=== PATIENT | male | born 1965 | race Caucasian/White ===

== ENCOUNTER 2022-12-15 12:42 | Outpatient (OUT) | payer OTHER, MEDICARE, SELFPAY ==
--- NOTE | 2022-12-15 13:11 | MR_ITS ---
[address] [address] Patient Name: ELENA TREJO MRN: [id number] date: 1965 Sex: M Assigned Patient Location: MRI Current Patient Location: MRI Accession/Order Number: [id number] Exam Date: 12/15/2022 13:15 Report Date: 12/15/2022 15:40 At the request of: PEE LAKHANI Procedure: MR lumbar spine wo con EXAM: MRI of the lumbar spine without IV gadolinium contrast. REASON FOR EXAM: Lumbar Radicular Pain M54.16 COMPARISON: None FINDINGS: No lumbar spine fractures, acute malalignment or acute abnormal marrow signal. No spinal canal mass, hematoma or fluid collection. L4-5 posterior maryam and pedicle screw fusion with laminectomies. Minimal grade 1 retrolisthesis of L3 on L4. No other lumbar spine malalignment. Mild L3-L4 posterior disc bulge. Mild L3-L4 spinal canal stenosis. No other substantial spinal canal stenoses. Mild bilateral L3-L4, and L4-5 neural foraminal stenoses. Mild to moderate bilateral L5-S1 neural foraminal stenoses. Remainder unremarkable. IMPRESSION: 1. No acute lumbar spine abnormalities. 2. L4-5 posterior maryam and pedicle screw fusion with laminectomies. 3. No moderate or high-grade spinal canal stenoses. 4. Mild to moderate bilateral L5-S1 neural foraminal stenoses. Electronically authenticated by: SELENE HASTINGS Date: 12/15/2022 15:40
== END 2022-12-15 12:43 ==
PROVIDERS: PCP Family Medicine; Visit Provider Family Medicine
DX: M54.16 Radiculopathy, lumbar region (principal); M48.07 Spinal stenosis, lumbosacral region
CPT/HCPCS: 72148

== ENCOUNTER 2022-12-24 14:54 | Emergency (ER) | payer OTHER, MEDICARE, SELFPAY ==
[2022-12-24 15:02] VITALS: BP 139/98; PULSE 58; RESP 14; TEMP 37.1; O2SAT 100; BMI 32.6
--- NOTE | 2022-12-24 15:36 | ED.FALL1 ---
HPI - Fall General Chief Complaint: Fall Stated Complaint: fall lower and upper extremity injury Time Seen by Provider: 12/24/22 15:36 Source: patient Mode of arrival: Wheelchair History of Present Illness HPI Narrative: Presents to emergency department complaining of left foot pain. Patient states he sprained it 5 days ago was seen in the emergency department and he was placed in an Agustín wrap. Patient states he is having swelling and pain when he walks on it. He also states he fell 2 days ago did not hit his head but since then had neck pain and pain over his sternum. His worse on the sternum and on the right clavicle when he moves. He denies any shortness of breath. Denies this being a syncopal episode. Has not been elevating the leg. He denies any fever, chills, or cough. He denies any abdominal pain. He denies any nausea, vomiting, diarrhea, consultation. He denies any paresthesias, or weakness. 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 He did not follow-up with anyone regarding the foot sprain. Related Data Home Medications Medication Instructions Recorded Confirmed dutasteride 0.5 mg capsule 0.5 mg PO DAILY 12/24/22 12/24/22 levetiracetam 750 mg tablet 750 mg PO BID 12/24/22 12/24/22 (Brannon) levothyroxine 100 mcg tablet 175 mcg PO DAILY 12/24/22 12/24/22 linezolid 600 mg tablet 600 mg PO BID 12/24/22 12/24/22 methocarbamol 500 mg tablet 500 mg PO Q6H PRN muscle spasm 12/24/22 12/24/22 metoprolol tartrate 50 mg tablet 50 mg PO BID 12/24/22 12/24/22 spironolactone 50 mg tablet 50 mg PO DAILY 12/24/22 12/24/22 tamsulosin 0.4 mg capsule 0.4 mg PO DAILY 12/24/22 12/24/22 topiramate 100 mg tablet 100 mg PO DAILY 12/24/22 12/24/22 topiramate 200 mg tablet 200 mg PO .QHS 12/24/22 12/24/22 trazodone 100 mg tablet 100 mg PO .QHS 12/24/22 12/24/22 Allergies Allergy/AdvReac Type Severity Reaction Status Date / Time Penicillins Allergy Severe Verified 12/24/22 15:01 Review of Systems ROS Status of ROS 10 or more systems reviewed and unremarkable except as noted in history and below Exam Narrative Exam Narrative: Nurses notes and vital signs reviewed and patient is not hypoxic. General: Nontoxic, Well-appearing and in no apparent distress. Skin: Warm, dry, no pallor noted. No Rash Head: Normocephalic, atraumatic. Neck: Supple, Minimal right lateral C6 and C7 tenderness to palpation. There is no erythema. Full range of motion. Eye: Pupils are equal, round and EOMI. No scleral icterus. Ears, Nose, Mouth, and Throat: TM clear, no posterior oropharynx erythema or nasal mucosal hypertrophy, uvula is mid-line Oral mucosa is moist Cardiovascular: Regular Rate and Rhythm without murmur, gallop or rub. Respiratory: No accessory muscle use or respiratory distress. Lungs are clear to auscultation, no wheezing, rales or rhonchi Chest Wall: no tenderness Back: No midline thoracic or lumbar vertebral tenderness. No CVA tenderness Musculoskeletal: Lateral malleolus ecchymosis and edema. No tenderness at the base of the 5th. DP +2, PTT +2, capillary refill is brisk. Range of motion is negative for pain. no calf or popliteal tenderness, no lower extremity edema/swelling GI: Abdomen is soft, non-distended. Normal bowel sounds. No masses appreciated. No tenderness to palpation. No rebound, guarding, or rigidity noted. Neurological: A&O x4. No cranial nerve dysfunction observed. No truncal ataxia. Moves all extremities. Sensation intact. Psychiatric: Cooperative and interactive. Normal mood and affect. Constitutional Vital Signs - 24 hr 12/24/22 15:02 Temperature 98.7 F Pulse Rate [Monitor] 58 L Respiratory Rate 14 Blood Pressure [Right Arm] 139/98 H Pulse Oximetry 100 Oxygen Delivery Method Room Air Course Vital Signs Vital signs: Vital Signs Temperature 98.7 F 12/24/22 15:02 Pulse Rate 58 L 12/24/22 15:02 Respiratory Rate 14 12/24/22 15:02 Blood Pressure 139/98 H 12/24/22 15:02 Pulse Oximetry 100 12/24/22 15:02 Oxygen Delivery Method Room Air 12/24/22 15:02 Temperature 98.7 F 12/24/22 15:02 Pulse Rate 58 L 12/24/22 15:02 Respiratory Rate 14 12/24/22 15:02 Blood Pressure 139/98 H 12/24/22 15:02 Pulse Oximetry 100 12/24/22 15:02 Oxygen Delivery Method Room Air 12/24/22 15:02 MDM - Fall MDM Narrative Medical decision making narrative: Radiologic studies, CT scans of the C-spine and chest were done which did not show any fracture. Patient is stable for outpatient follow-up. He is to follow-up with Dr. Mendoza primary care doctor. Advise follow-up with the management. He is advised to RICE. At this time the patient is without objective evidence of an acute process requiring hospitalization or inpatient management. The patient has remained hemodynamically stable. No additional indication for emergent studies at this time. I answered all questions. Discussed discharge instructions including standard anticipatory guidance and what should prompt a return to the emergency department, including if they get worse are not getting better or develops any new or concerning symptoms. I've given them specific time frame in which to follow-up, and who to follow-up with. The patient demonstrates understanding. Patient is nontoxic and stable for discharge with outpatient follow-up. This note was created with the assistance of a speech recognition program. Although the intention is to generate documents that actually reflects the content of the visit, no guarantees can be provided that every mistake has been identified and corrected by editing. Discharge Plan Discharge Chief Complaint: Fall Clinical Impression: Neck strain Patient Disposition: Home, Self-Care Time of Disposition Decision: 17:50 Condition: Good Mode of Transportation: Private Vehicle Prescriptions / Home Meds: No Action dutasteride 0.5 mg capsule 0.5 mg PO DAILY levetiracetam [Keppra] 750 mg tablet 750 mg PO BID levothyroxine 100 mcg tablet 175 mcg PO DAILY linezolid 600 mg tablet 600 mg PO BID methocarbamol 500 mg tablet 500 mg PO Q6H PRN (Reason: muscle spasm) metoprolol tartrate 50 mg tablet 50 mg PO BID spironolactone 50 mg tablet 50 mg PO DAILY tamsulosin 0.4 mg capsule 0.4 mg PO DAILY topiramate 100 mg tablet 100 mg PO DAILY topiramate 200 mg tablet 200 mg PO .QHS trazodone 100 mg tablet 100 mg PO .QHS Instructions: Cervical Strain (ED), Foot Sprain (ED) Stand Alone Forms: Portal Instructions Referrals: Patrice Guadalupe MD [Primary Care Provider] - 1 week Goldy Phillips MD [Physician] - 1 week
--- NOTE | 2022-12-24 15:47 | CT_ITS ---
[address] [address] Patient Name: ELENA TREJO MRN: [id number] date: 1965 Sex: M Assigned Patient Location: ER Current Patient Location: ER Accession/Order Number: [id number] Exam Date: 12/24/2022 16:00 Report Date: 12/24/2022 17:45 At the request of: LISSETTE LOPEZ Procedure: CT cervical spine wo con EXAMINATION: CT cervical spine wo con HISTORY: pain history of trauma COMPARISON: 11/27/2022 TECHNIQUE: CT Cervical spine without IV contrast. Coronal and sagittal reformations were performed. Dose reduction techniques were achieved by using automated exposure control and/or adjustment of mA and/or kV according to patient size and/or use of iterative reconstruction technique. FINDINGS: CV JUNCTION: Normal foramen magnum with no Chiari malformation. PARASPINAL: Normal with no visible mass. BONES: Again, there has been an anterior interbody fusion at C5-C6 with placement of a fusion cage as well as an anterior plate and screws. Hardware is intact. OTHER: None. DISC LEVELS: C1-C2: Within normal limits for age. C2-C3: No significant disc/facet abnormality, spinal stenosis, or foraminal stenosis. C3-C4: Early degenerative disc disease is present without focal protrusion or neural impingement. C4-C5: Early degenerative disc disease is present without focal protrusion or neural impingement. . C5-C6: Again, there are findings of previous anterior interbody fusion at this level. The central canal and neural foramina are satisfactorily maintained. C6-C7: Moderate degenerative disc disease is present. The central canal is satisfactorily maintained. There is mild foraminal stenosis bilaterally, more prominent on the left than on the right. C7-T1: Early degenerative disc disease is present without focal protrusion or neural impingement. IMPRESSION: Previous C5-C6 anterior interbody fusion, stable compared with prior study of one month ago. Multilevel cervical spondylosis. No evidence for acute fracture or traumatic malalignment. Electronically authenticated by: Jeanine GARCIA Date: 12/24/2022 17:45
--- NOTE | 2022-12-24 15:47 | CT_ITS ---
[address] [address] Patient Name: ELENA TREJO MRN: [id number] date: 1965 Sex: M Assigned Patient Location: ER Current Patient Location: ER Accession/Order Number: [id number] Exam Date: 12/24/2022 16:00 Report Date: 12/24/2022 17:01 At the request of: LISSETTE LOPEZ Procedure: CT chest wo con EXAM: CT chest wo con HISTORY: pain, fall COMPARISON: None. TECHNIQUE: Noncontrast CT was obtained through the chest. Dose reduction techniques were achieved by using automated exposure control and/or adjustment of mA and/or kV according to patient size and/or use of iterative reconstruction technique. FINDINGS: Arm down scanning technique with resultant artifact. Cardiovascular: Postsurgical changes of the nasal septum. Cardiomegaly. Small pericardial effusion is present. Atherosclerotic vascular calcification at the left anterior descending coronary artery. Mediastinum: No mediastinal or hilar lymphadenopathy. Pulmonary: No focal consolidation, pneumothorax, or pleural effusion. Osseous: No acute fracture. Postsurgical changes of the lower cervical spine. Osteophytes of the thoracic spine. No aggressive osseous lesion. Upper abdomen: The imaged portion of the upper abdomen is normal. IMPRESSION: 1. No acute traumatic abnormality within the chest. 2. Cardiomegaly. Electronically authenticated by: GARFIELD URBAN Date: 12/24/2022 17:01
[2022-12-24 18:16] VITALS: BP 129/77; PULSE 59; RESP 16; O2SAT 59
== END 2022-12-24 18:17 | disposition home or self-care (01) ==
PROVIDERS: Emergency Provider Emergency Medicine; PCP Family Medicine
DX: S16.1XXA Strain of muscle, fascia and tendon at neck level, initial encounter (principal); W19.XXXA Unspecified fall, initial encounter; Z79.899 Other long term (current) drug therapy
CPT/HCPCS: 71250; 72125; 99284

== ENCOUNTER 2022-12-25 11:03 | Outpatient (OUT) | payer OTHER, MEDICARE, SELFPAY ==
--- NOTE | 2022-12-25 12:07 | PM.CN ---
Consult Note: HPI Data of Consult Patient: new to practice Consult date: 12/25/22 Requesting Physician: Hernandez Wylie MD Primary Care Provider: Patrice Guadalupe MD Consult Narrative Reason for consult: neck, left arm pain, low back, left leg pain Narrative: this is a pleasant 57-year-old gentleman presents for evaluation. He notes increasing pain throughout his axial neck, as well as pain that rates from his low back into the left lower extremity. He has progressive weakening in his left lower extremity. He has a history of fusions at C5-C6, as well as L4-L5. He engages in provider directed home exercises, but these have not provided any lasting relief. His cervical imaging is significant for multiple levels of facet arthropathy and cervical spondylosis, and his lumbar MRI is consistent with multiple levels of foraminal stenosis, including L5-S1, as well as facet arthropathy at multiple levels.he utilizes primarily [id number] medications, which provided minimal relief. He has tried opioids in the past for various reasons, but he does not tolerate the side effects well. He otherwise denies adverse medication side effects or loss of bowel or bladder control. cc:: CC: Hernandez Wylie MD Review of Systems ROS Status of ROS 10 or more systems reviewed and unremarkable except as noted in history and below Meds Home Medications and Allergies Home Medications Medication Instructions Recorded Confirmed Type dutasteride 0.5 mg capsule 0.5 mg PO DAILY 12/24/22 12/24/22 History levetiracetam 750 mg tablet 750 mg PO BID 12/24/22 12/24/22 History (Keppra) levothyroxine 100 mcg tablet 175 mcg PO DAILY 12/24/22 12/24/22 History linezolid 600 mg tablet 600 mg PO BID 12/24/22 12/24/22 History methocarbamol 500 mg tablet 500 mg PO Q6H PRN muscle spasm 12/24/22 12/24/22 History metoprolol tartrate 50 mg tablet 50 mg PO BID 12/24/22 12/24/22 History spironolactone 50 mg tablet 50 mg PO DAILY 12/24/22 12/24/22 History tamsulosin 0.4 mg capsule 0.4 mg PO DAILY 12/24/22 12/24/22 History topiramate 100 mg tablet 100 mg PO DAILY 12/24/22 12/24/22 History topiramate 200 mg tablet 200 mg PO .QHS 12/24/22 12/24/22 History trazodone 100 mg tablet 100 mg PO .QHS 12/24/22 12/24/22 History Allergies Allergy/AdvReac Type Severity Reaction Status Date / Time Penicillins Allergy Severe Verified 12/24/22 15:01 Exam Constitutional Common normals: no apparent distress, oriented x3 and healthy appearing Neck & C-Spine Other: tenderness to palpation throughout the cervical spine. Pain is elicited with flexion, extension, and lateral rotation of the cervical spine. Facet loading maneuvers are positive bilaterally. Respiratory Common normals: normal respiratory effort Effort & inspection: able to speak in complete sentences Back & Pelvis Other: tenderness to palpation throughout the lumbar spine. Pain is elicited with flexion, extension, and lateral rotation of the lumbar spine. Facet loading maneuvers are positive bilaterally. Strength noted to be unremarkable throughout the bilateral lower extremities except for decreased strength rated at four out of five in the left quadriceps femoris, anterior tibialis, posterior tibialis. Sensation noted to be unremarkable throughout the bilateral lower extremities for dysesthesia in the left L3, L4, L5 dermatomal distributions. Coordination remains intact. Gait remains mildly antalgic. Extremity Common normals: normal to inspection Neuro Common normals: oriented x3, CN's II-XII intact bilaterally and no focal motor deficits Psych Common normals: mental status grossly normal and cooperative Assessment and Plan Assessment and Plan (1) Cervical spondylosis: (2) Cervical postlaminectomy syndrome: (3) Lumbar stenosis with neurogenic claudication: (4) Lumbar spondylosis: (5) Lumbar postlaminectomy syndrome: Plan this is a pleasant 57-year-old gentleman who presents for evaluation. He has failed physical and medical modalities, as listed above. His cervical and lumbar imaging was reviewed, as noted above. He states that his most prominent symptoms are his neck pain that often cause headaches, so given his symptomatology and imaging findings, it is prudent to attempt diagnostic bilateral C3, C4, C5 medial branch blocks ?2 with the intention of proceeding to radio frequency ablation. He is in agreement with this plan. We also discussed that he may be a candidate for various lumbar interventions, including epidural steroid injections and lumbar medial branch blocks, given his pathology and symptomatology. He expressed understanding. Medications were reviewed, and no changes were made at this time. He will follow-up after the procedure is completed.
== END 2022-12-25 11:04 ==
PROVIDERS: PCP Family Medicine; Visit Provider Anesthesiology
DX: M47.812 Spondylosis without myelopathy or radiculopathy, cervical region (principal); M96.1 Postlaminectomy syndrome, not elsewhere classified; M47.816 Spondylosis without myelopathy or radiculopathy, lumbar region; M48.062 Spinal stenosis, lumbar region with neurogenic claudication
CPT/HCPCS: G0463

== ENCOUNTER 2023-01-03 09:24 | Outpatient (OUT) | payer OTHER, MEDICARE, SELFPAY ==
--- NOTE | 2023-01-03 09:54 | XR_ITS ---
The [address] [address] Patient Name: ELENA TREJO MRN: [id number] date: 1965 Sex: M Assigned Patient Location: [facility] Current Patient Location: [facility] Accession/Order Number: [id number] Exam Date: 01/03/2023 09:54 Report Date: 01/03/2023 10:32 At the request of: SELENE LUZ Procedure: XR ankle LT min 3V PROCEDURE: XR ankle LT min 3V HISTORY: LEFT ANKLE PAIN ; lateral ankle pain; follow-up COMPARISON: XR ankle left 11/27/2022 FINDINGS: BONES:Today's study contains an oblique view of the ankle which shows a 7 mm separate ossification at the distal medial margin of the lateral malleolus. No visible fracture line or callus formation involving the fibula or tibia. Normal ankle joint spacing. SOFT TISSUES:No visible soft tissue swelling. EFFUSION:None visible. OTHER: Negative. IMPRESSION: 1. No appreciable acute bone abnormality. 2. A separate ossification adjacent the lateral malleolus could not be seen on prior study. Its cephalad margin overlaps the lateral malleolus and cannot be evaluated. I suspect this represents a separate ossification center or sequela of remote injury. Acute fracture cannot be excluded but is felt less likely. Electronically authenticated by: SHEN SOSA Date: 01/03/2023 10:32
== END 2023-01-03 09:25 ==
LOC: RAD 09:25
PROVIDERS: PCP Family Medicine; Visit Provider Student in an Organized Health Care Education/Training Program
DX: M25.572 Pain in left ankle and joints of left foot (principal)
CPT/HCPCS: 73610

== ENCOUNTER 2023-01-08 08:50 | Day surgery (SDC) | payer OTHER, MEDICARE, SELFPAY ==
[2023-01-08 09:50] VITALS: BP 103/76; PULSE 56; RESP 14; TEMP 36.2; O2SAT 98
[2023-01-08] MEDS: BUPIVACAINE HCL 0.25% PF 25 MG/10 ML VIAL INJ (10:39)
[2023-01-08] MEDS: DEXAMETHASONE SODIUM PHOSPHATE 10 MG/ML VIAL INJ (10:39)
[2023-01-08] MEDS: LIDOCAINE HCL 2% PF 100 MG/5 ML VIAL INJ (10:40)
--- NOTE | 2023-01-08 10:40 | W.PM.PROCNOT ---
Date of procedure: 01/08/23 Pre-op diagnosis: Cervical spondylosis Post-op diagnosis: same Procedure: Procedure: Bilateral C3, 4, 5 medial branch block Medications: Bupivacaine 0.25% 4cc The patient was seen and examined in the preoperative holding area.? The informed consent was obtained and placed on the chart.? The patient was brought to the medical procedure unit and placed in the prone position.? A timeout was completed verifying correct patient, procedure site, positioning, plan, and special equipment.? Using aseptic technique, the needle was placed at left C3.? Under direct fluoroscopic visualization, a Quincke tip needle was advanced to the midpoint of the waist of the articular pillar at the respective medial branch segment. The above-mentioned injectate was placed in a 1 mL aliquot proceeded by negative aspiration.? The needle was removed.? The procedure was completed at all left C4, 5. The same procedure, at the same levels, was then completed on the right side. Insertion site was covered.? Patient was taken to the postprocedural recovery area and monitored for an appropriate length of time before found suitable for discharge in the accompaniment of a responsible adult. Surgeon: Hernandez Wylie Condition: stable
[2023-01-08 11:10] VITALS: BP 115/73; BP 129/70; PULSE 55; PULSE 57; RESP 18; RESP 97; O2SAT 18; O2SAT 98
== END 2023-01-08 10:45 | disposition home or self-care (01) ==
LOC: SURGOUT 08:51
PROVIDERS: PCP Family Medicine; Visit Provider Anesthesiology
DX: M47.812 Spondylosis without myelopathy or radiculopathy, cervical region (principal)
CPT/HCPCS: 64490; 64491; J1100

== ENCOUNTER 2023-04-16 19:13 | Emergency (ER) | payer OTHER, MEDICARE, SELFPAY ==
[2023-04-16] VITALS (20 sets, daily range): BP systolic 112–181; BP diastolic 73–128; PULSE 56–65; RESP 5–32; TEMP 36.7; O2SAT 92–97; BMI 32.3
--- NOTE | 2023-04-16 19:34 | ED.GENADUL1 ---
HPI - General Adult General Chief complaint: Weakness Stated complaint: CP, LEFT ARM NUMBNESS, MIGRAINE Time Seen by Provider: 04/16/23 19:29 Source: patient Mode of arrival: Wheelchair Limitations: no limitations History of Present Illness HPI narrative: complains of migraine for the past week. Also recurrent numbness of the left arm. no associated weakness. Also has productive cough of brown phlegm. fever this past week. Ex smoker with past history of emphysema. States he is not able to sleep. complains of pressure of his chest when lying down. left arm is not numb now. Headache continues MD complaint: past history of migraines for which he takes Topomax and excedrin migraine. Onset (ago): week(s) Related Data Home Medications Medication Instructions Recorded Confirmed dutasteride 0.5 mg capsule 0.5 mg PO DAILY 12/24/22 01/08/23 levetiracetam 750 mg tablet 750 mg PO BID 12/24/22 01/08/23 (Keppra) levothyroxine 100 mcg tablet 100 mcg PO DAILY 12/24/22 01/08/23 methocarbamol 500 mg tablet 500 mg PO Q6H PRN muscle spasm 12/24/22 01/08/23 metoprolol tartrate 50 mg tablet 50 mg PO QDAY 12/24/22 01/08/23 tamsulosin 0.4 mg capsule 0.4 mg PO DAILY 12/24/22 01/08/23 topiramate 100 mg tablet 100 mg PO DAILY 12/24/22 01/08/23 topiramate 200 mg tablet 200 mg PO .QHS 12/24/22 01/08/23 trazodone 100 mg tablet 100 mg PO .QHS 12/24/22 01/08/23 albuterol 90 mcg/actuation aerosol mcg inhalation 12/25/22 inhaler aspirin 81 mg chewable tablet 81 mg PO BID 12/25/22 01/08/23 (Aspirin Childrens) fluticasone fur. 100 mcg-umeclid 1 inh inhalation DAILY 12/25/22 01/08/23 62.5 mcg-vilant 25 mcg inhalat.powder (Trelegy Ellipta) rimegepant 75 mg disintegrating mg 12/25/22 tablet (Nurtec ODT) topiramate 200 mg tablet 100 mg PO DAILY 12/25/22 01/08/23 Allergies Allergy/AdvReac Type Severity Reaction Status Date / Time Penicillins Allergy Severe Verified 04/16/23 19:25 strawbery Allergy Uncoded 04/16/23 19:25 Review of Systems ROS Status of ROS 10 or more systems reviewed and unremarkable except as noted in history and below Respiratory Reports: cough PFSH [facility] Medical History (Updated 04/16/23 @ 21:33 by Avila Newton MD) Acid reflux ?K21.9 - Gastro-esophageal reflux disease without esophagitis (ICD-10) Back pain ?M54.9 - Dorsalgia, unspecified (ICD-10) Emphysema of lung ?J43.9 - Emphysema, unspecified (ICD-10) Enlarged prostate ?N40.0 - Benign prostatic hyperplasia without lower urinary tract symptoms (ICD-10) Heartburn ?R12 - Heartburn (ICD-10) Hypothyroid ?E03.9 - Hypothyroidism, unspecified (ICD-10) Neck pain ?M54.2 - Cervicalgia (ICD-10) Numbness and tingling ?R20.0 - Anesthesia of skin (ICD-10) ?R20.2 - Paresthesia of skin (ICD-10) Seizure ?R56.9 - Unspecified convulsions (ICD-10) Upper back pain ?M54.9 - Dorsalgia, unspecified (ICD-10) Surgical History (Updated 01/03/23 @ 14:09 by Julieta Huggins) H/O cervical spine surgery ?Z98.890 - Other specified postprocedural states (ICD-10) H/O heart surgery ?Z98.890 - Other specified postprocedural states (ICD-10) H/O lumbosacral spine surgery ?Z98.890 - Other specified postprocedural states (ICD-10) Exam Constitutional Vital Signs, click to edit/add: Last Vital Signs Temp 98.1 F 04/16/23 19:17 Pulse 61 04/16/23 19:17 Resp 22 04/16/23 19:17 BP 168/98 H 04/16/23 19:28 Pulse Ox 96 04/16/23 19:17 O2 Del Method Room Air 04/16/23 19:17 Common normals: no apparent distress, average body habitus, oriented x3, no limitations, healthy appearing, alert and well nourished Eye Common normals: EOMs intact bilaterally and conjunctivae normal Respiratory Common normals: normal respiratory effort, no retractions, no use of accessory muscles and clear to auscultation bilaterally Cardio Common normals: regular rate, regular rhythm, S1 normal heart sound and S2 normal heart sound GI Common normals: Normal to inspection, nondistended, normoactive bowel sounds present, soft to palpation and non-tender Extremity Common normals: normal to inspection and full ROM Neuro Common normals: oriented x3, CN's II-XII intact bilaterally, moves all extremities, no focal motor deficits and no sensory deficits noted Psych Appearance: grossly normal Course Vital Signs Vital signs: Vital Signs Temperature 98.1 F 04/16/23 19:17 Pulse Rate 61 04/16/23 19:17 Respiratory Rate 22 04/16/23 19:17 Pulse Oximetry 96 04/16/23 19:17 Oxygen Delivery Method Room Air 04/16/23 19:17 Temperature 98.1 F 04/16/23 19:17 Pulse Rate 61 04/16/23 19:17 Respiratory Rate 22 04/16/23 19:17 Blood Pressure 168/98 H 04/16/23 19:28 Pulse Oximetry 96 04/16/23 19:17 Oxygen Delivery Method Room Air 04/16/23 19:17 Medical Decision Making MDM Narrative Medical decision making narrative: patient with past history of cervical laminectomy. Presents with chronic recurrent migraine. He is on Topomax for his migraine but states the medication is not working. Same migraine on and off for 4 years or longer. also complaint of productive cough. Does have history of emphysema and lastly complaint of numbness of the left arm on and off. No associated weakness. No other neuro deficits . CT brain neg. labs reveal mildly decreased potassium. Cxray without pneumonia. Patient informed that his left arm paresthesia is likely pinch nerve from his neck. Will treat as a bronchitis with zpak and his potassium was supplemented in the department. He is to follow up with his PCP regarding his productive cough and left arm episodic paresthesia migraine has responded well to treatment Lab Data Labs: Lab Results 04/16/23 Range/Units 19:40 WBC 11.3 H (4.0-11.0) 10^3/uL RBC 4.20 L (4.70-6.10) 10^6/uL Hgb 13.7 L (14.0-18.0) g/dL Hct 41.2 L (42.0-54.0) % MCV 98.1 H (80.0-94.0) fL MCH 32.6 (25.9-34.0) pg MCHC 33.3 (29.9-35.2) g/dL RDW 16.2 H (11.0-15.0) % Plt Count 201 (150-450) 10^3/uL MPV 11.1 (9.5-13.5) fL Neut % (Auto) 56.7 (43.0-75.0) % Lymph % (Auto) 35.7 (20.5-60.0) % Pepin % (Auto) 5.2 (1.7-12.0) % Eos % (Auto) 0.8 L (0.9-7.0) % Baso % (Auto) 0.5 (0.2-2.0) % Neut # (Auto) 6.4 (1.4-6.5) 10^3/uL Lymph # (Auto) 4.1 H (1.2-3.8) 10^3/uL Pepin # (Auto) 0.6 (0.3-0.8) 10^3/uL Eos # (Auto) 0.1 (0.0-0.7) 10^3/uL Baso # (Auto) 0.1 (0.0-0.1) 10^3/uL Abs Immat Gran (auto) 0.12 H (0.00-0.03) 10^3/uL Imm/Tot Granulo (auto) 1.1 H (0.0-0.5) % Sodium 131 L (136-145) mmol/L Potassium 3.3 L (3.5-5.1) mmol/L Chloride 95 L (98-107) mmol/L Carbon Dioxide 23.6 (21.0-32.0) mmol/L Anion Gap 15.7 BUN 13.0 (7.0-18.0) mg/dL Creatinine 1.51 H (0.70-1.30) mg/dL Est GFR ( Amer) 58 L (>=60) Est GFR (Non-Af Amer) 48 L (>=60) BUN/Creatinine Ratio 8.6 Glucose 99 (74-106) mg/dL Calcium 9.1 (8.5-10.1) mg/dL Troponin I High Sens 5.2 (4.0-76.1) pg/mL Imaging Data CT scan - head: Attestation: I have reviewed the pertinent imaging results. Radiologist's impression: Current Patient Location: ER Accession/Order Number: [id number] Exam Date: 04/16/2023 20:20 Report Date: 04/16/2023 21:03 At the request of: AVILA NEWTON Procedure: CT head/brain wo con EXAM: CT head/brain wo con HISTORY: paresthesia LUE COMPARISON: 11/27/2022 TECHNIQUE: Noncontrast head CT is performed FINDINGS: No hemorrhage. No mass effect. No midline shift. Normal ventricular size. No acute skull fracture. Demineralization of bones Paranasal sinuses and mastoids otherwise clear IMPRESSION: No acute intracranial abnormality Electronically authenticated by: BENJAMIN DE LA O Date: 04/16/2023 21:03 Discharge Plan Discharge Chief Complaint: Weakness Clinical Impression: Migraine, Arm paresthesia, left, Acute bronchitis, Acute hypokalemia Patient Disposition: Home, Self-Care Prescriptions / Home Meds: No Action dutasteride 0.5 mg capsule 0.5 mg PO DAILY levetiracetam [Keppra] 750 mg tablet 750 mg PO BID levothyroxine 100 mcg tablet 100 mcg PO DAILY methocarbamol 500 mg tablet 500 mg PO Q6H PRN (Reason: muscle spasm) metoprolol tartrate 50 mg tablet 50 mg PO QDAY tamsulosin 0.4 mg capsule 0.4 mg PO DAILY topiramate 100 mg tablet 100 mg PO DAILY topiramate 200 mg tablet 200 mg PO .QHS trazodone 100 mg tablet 100 mg PO .QHS aspirin [Aspirin Childrens] 81 mg tablet,chewable 81 mg PO BID Trelegy Ellipta 100-62.5-25 mcg blister with device 1 inh inhalation DAILY albuterol 90 mcg/actuation aerosol inhalation topiramate 200 mg tablet 100 mg PO DAILY Nurtec ODT 75 mg tablet,disintegrating Instructions: Migraine Headache (ED), Hypokalemia (ED), Acute Bronchitis (ED), Paresthesia (ED) Stand Alone Forms: Portal Instructions Referrals: Patrice Guadalupe MD [Primary Care Provider] - 1 week
--- NOTE | 2023-04-16 19:38 | XR_ITS ---
[address] [address] Patient Name: ELENA TREJO MRN: [id number] date: 1965 Sex: M Assigned Patient Location: ER Current Patient Location: ER Accession/Order Number: [id number] Exam Date: 04/16/2023 20:18 Report Date: 04/16/2023 20:44 At the request of: XIAO GREENE Procedure: XR chest 1V EXAMINATION: XR chest 1V HISTORY: Cough COMPARISON: Portable chest 11/27/2022 TECHNIQUE: Portable chest FINDINGS: The lung parenchyma is free of consolidation or infiltrate. No pneumothorax or pleural effusion. The cardiac, mediastinal and hilar contours are normal. The visualized osseous structures exhibit no gross abnormality. XR/XR chest 1V IMPRESSION: No acute cardiopulmonary abnormality. Electronically authenticated by: JULIO CESAR BUTCHER Date: 04/16/2023 20:44
--- NOTE | 2023-04-16 19:38 | CT_ITS ---
[address] [address] Patient Name: ELENA TREJO MRN: [id number] date: 1965 Sex: M Assigned Patient Location: ER Current Patient Location: ER Accession/Order Number: [id number] Exam Date: 04/16/2023 20:20 Report Date: 04/16/2023 21:03 At the request of: XIAO GREENE Procedure: CT head/brain wo con EXAM: CT head/brain wo con HISTORY: paresthesia LUE COMPARISON: 11/27/2022 TECHNIQUE: Noncontrast head CT is performed FINDINGS: No hemorrhage. No mass effect. No midline shift. Normal ventricular size. No acute skull fracture. Demineralization of bones Paranasal sinuses and mastoids otherwise clear CT/CT head/brain wo con IMPRESSION: No acute intracranial abnormality Electronically authenticated by: BENJAMIN DE LA O Date: 04/16/2023 21:03
--- NOTE | 2023-04-16 19:38 | ECG_ITS ---
The [facility] Test Date: 2023-04-16 Pat Name: ELENA TREJO Department: Room: - Gender: Male Account Auditor: : 1965 Requested By: PEE LAKHANI Order Number: [id number] Reading MD: PEE LAKHANI Measurements Intervals [place] Rate: 52 P: 120 AR: 152 QRS: 91 QRSD: 94 T: 170 QT: 372 QTc: 353 Interpretive Statements 1200 Atrial rhythm 2233 2nd degree AV block, Mobitz type II [address] depression 7102 Moderate right axis deviation 7500 Abnormal QRS-T angle 8100 Low QRS voltage 8305 Short QTc interval 0101 Possible arm leads reversed, check lead requested 9150 abnormal ECG No previous ECG available for comparison Electronically Signed On 04-17-2023 6:47:12 EDT by PEE LAKHANI
[2023-04-16] MEDS: METHYLPREDNISOLONE SOD SUCC PF 125 MG/2 ML VIAL IVP (19:51)
[2023-04-16] MEDS: DIPHENHYDRAMINE HCL 50 MG/ML (1ML) VIAL IV (19:52)
[2023-04-16] MEDS: METOCLOPRAMIDE HCL 10 MG/2 ML VIAL IVP (19:52)
[2023-04-16 20:29] LABS: Basophils Absolute Auto 0.1 10^3/uL (0.0-0.1); Basophils Percent Auto 0.5 % (0.2-2.0); Eosinophils Absolute Auto 0.1 10^3/uL (0.0-0.7); Eosinophils Percent Auto 0.8 % (0.9-7.0); Hematocrit 41.2 % (42.0-54.0); Hemoglobin 13.7 g/dL (14.0-18.0); Immature Granulocytes Abs Auto 0.12 10^3/uL (0.00-0.03); Immature Granulocytes Pct Auto 1.1 % (0.0-0.5); Lymphocytes Absolute Auto 4.1 10^3/uL (1.2-3.8); Lymphocytes Percent Auto 35.7 % (20.5-60.0); Mean Corpuscular HGB Conc 33.3 g/dL (29.9-35.2); Mean Corpuscular Hemoglobin 32.6 pg (25.9-34.0); Mean Corpuscular Volume 98.1 fL (80.0-94.0); Mean Platelet Volume 11.1 fL (9.5-13.5); Monocytes Absolute Auto 0.6 10^3/uL (0.3-0.8); Monocytes Percent Auto 5.2 % (1.7-12.0); Neutrophils Absolute Auto 6.4 10^3/uL (1.4-6.5); Neutrophils Percent Auto 56.7 % (43.0-75.0); Platelet Count 201 10^3/uL (150-450); Red Cell Distribution Width 16.2 % (11.0-15.0); White Blood Count 11.3 10^3/uL (4.0-11.0)
[2023-04-16 21:00] LABS: Anion Gap 15.7; BUN Creatinine Ratio 8.6; Calcium 9.1 mg/dL (8.5-10.1); Carbon Dioxide 23.6 mmol/L (21.0-32.0); Chloride 95 mmol/L (98-107); Estimated GFR (African America 58 (>=60); Estimated GFR (Non-African Ame 48 (>=60); Glucose 99 mg/dL (74-106); Potassium 3.3 mmol/L (3.5-5.1); Sodium 131 mmol/L (136-145); Troponin I High Sensitivity 5.2 pg/mL (4.0-76.1)
[2023-04-16] MEDS: AZITHROMYCIN 250 MG TABLET 500 MG PO (21:35)
[2023-04-16] MEDS: POTASSIUM CHLORIDE 10 MEQ ER TABLET 40 MEQ PO (21:35)
== END 2023-04-16 21:46 | disposition home or self-care (01) ==
PROVIDERS: Emergency Provider Internal Medicine; PCP Family Medicine
DX: G43.909 Migraine, unspecified, not intractable, without status migrainosus (principal); R20.2 Paresthesia of skin; J20.9 Acute bronchitis, unspecified; E87.6 Hypokalemia; Z87.891 Personal history of nicotine dependence; Z79.82 Long term (current) use of aspirin; K21.9 Gastro-esophageal reflux disease without esophagitis; J43.9 Emphysema, unspecified; E03.9 Hypothyroidism, unspecified; R56.9 Unspecified convulsions; Z98.890 Other specified postprocedural states; Z79.899 Other long term (current) drug therapy
CPT/HCPCS: 36415; 70450; 71045; 80048; 84484; 85025; 93005; 96374; 96375; 99285; J2930

== ENCOUNTER 2023-04-20 09:14 | Emergency (ER) | payer OTHER, MEDICARE, SELFPAY ==
[2023-04-20] VITALS (26 sets, daily range): BP systolic 132–159; BP diastolic 98–105; PULSE 39–113; RESP 3–23; TEMP 37.1; O2SAT 89–98; BMI 32.3
--- NOTE | 2023-04-20 09:19 | ECG_ITS ---
The [facility] Test Date: 2023-04-20 Pat Name: ELENA TREJO Department: Room: - Gender: Male Assistant Distribution Manager: : 1965 Requested By: PEE LAKHANI Order Number: [id number] Reading MD: PEE LAKHANI Measurements Intervals [place] Rate: 39 P: 34 UT: 126 QRS: -26 QRSD: 84 T: 150 QT: 426 QTc: 351 Interpretive Statements 1130 Sinus bradycardia 2233 2nd degree AV block, Mobitz type II 7202 Moderate left axis deviation 7500 Abnormal QRS-T angle 8100 Low QRS voltage 8305 Short QTc interval 9150 abnormal ECG Compared to ECG 04/16/2023 19:26:14 Left-axis deviation now present ST (T wave) deviation no longer present Right-axis deviation no longer present Electronically Signed On 04-23-2023 7:51:14 EDT by PEE LAKHANI
--- NOTE | 2023-04-20 09:19 | XR_ITS ---
The [address] [address] Patient Name: ELENA TREJO MRN: [id number] date: 1965 Sex: M Assigned Patient Location: ER Current Patient Location: ER Accession/Order Number: [id number] Exam Date: 04/20/2023 09:40 Report Date: 04/20/2023 09:58 At the request of: ION SIMS Procedure: XR chest 1V EXAM: XR chest 1V HISTORY: . shortness of breath . COMPARISON: 04/16/2023 TECHNIQUE: Single view of the chest FINDINGS: Heart and vascularity are unremarkable. Lungs are free of focal infiltrates. EKG leads overlie the chest. XR/XR chest 1V IMPRESSION: No acute heart or lung disease identified. Electronically authenticated by: JULIO CESAR PARKER Date: 04/20/2023 09:58
--- NOTE | 2023-04-20 09:21 | ED_ITS ---
HPI - General Adult General Chief complaint: Chest Pain Stated complaint: SYNCOPE, WEAKNESS Time Seen by Provider: 04/20/23 09:17 Source: patient Mode of arrival: ambulance Limitations: no limitations History of Present Illness HPI narrative: sent from Dr Guadalupe's office with complaint of shortness of breath, cough, poor oral intake, near-syncope. Evaluated 04/16/23 in our ED and diagnosed with bronchitis - had negative CXR, WBC 11k, negative troponin, covid not tested. Discharged home with zpak. No better. PMHx includes COPD/emphysema, HTN. Denies DM or CAD. Related Data Home Medications Medication Instructions Recorded Confirmed dutasteride 0.5 mg capsule 0.5 mg PO DAILY 12/24/22 04/20/23 levetiracetam 750 mg tablet 750 mg PO BID 12/24/22 04/20/23 (Keppra) levothyroxine 100 mcg tablet 100 mcg PO DAILY 12/24/22 04/20/23 methocarbamol 500 mg tablet 500 mg PO Q6H PRN muscle spasm 12/24/22 04/20/23 metoprolol tartrate 50 mg tablet 25 mg PO QDAY 12/24/22 04/20/23 tamsulosin 0.4 mg capsule 0.4 mg PO DAILY 12/24/22 04/20/23 topiramate 100 mg tablet 100 mg PO Q12H 12/24/22 04/20/23 topiramate 200 mg tablet 200 mg PO .QHS 12/24/22 01/08/23 trazodone 100 mg tablet 100 mg PO .QHS 12/24/22 04/20/23 albuterol 90 mcg/actuation aerosol 90 mcg inhalation DAILY 12/25/22 04/20/23 inhaler aspirin 81 mg chewable tablet 162 mg PO DAILY 12/25/22 04/20/23 (Aspirin Childrens) fluticasone fur. 100 mcg-umeclid 1 inh inhalation DAILY 12/25/22 01/08/23 62.5 mcg-vilant 25 mcg inhalat.powder (Trelegy Ellipta) rimegepant 75 mg disintegrating 75 mg PO DAILY 12/25/22 04/20/23 tablet (Nurtec ODT) topiramate 200 mg tablet 100 mg PO DAILY 12/25/22 01/08/23 dexamethasone 6 mg tablet 6 mg PO DAILY 04/20/23 04/20/23 fluticasone fur. 100 mcg-umeclid 1 inh inhalation DAILY 04/20/23 04/20/23 62.5 mcg-vilant 25 mcg inhalat.powder (Trelegy Ellipta) voriconazole 200 mg tablet 200 mg PO Q12H 04/20/23 04/20/23 Allergies Allergy/AdvReac Type Severity Reaction Status Date / Time Penicillins Allergy Severe Verified 04/16/23 19:25 strawbery Allergy Uncoded 04/16/23 19:25 [facility] Medical History (Updated 04/20/23 @ 11:07 by Ion Sims) Acid reflux ?K21.9 - Gastro-esophageal reflux disease without esophagitis (ICD-10) Back pain ?M54.9 - Dorsalgia, unspecified (ICD-10) Emphysema of lung ?J43.9 - Emphysema, unspecified (ICD-10) Enlarged prostate ?N40.0 - Benign prostatic hyperplasia without lower urinary tract symptoms (ICD-10) Heartburn ?R12 - Heartburn (ICD-10) Hypothyroid ?E03.9 - Hypothyroidism, unspecified (ICD-10) Neck pain ?M54.2 - Cervicalgia (ICD-10) Numbness and tingling ?R20.0 - Anesthesia of skin (ICD-10) ?R20.2 - Paresthesia of skin (ICD-10) Seizure ?R56.9 - Unspecified convulsions (ICD-10) Upper back pain ?M54.9 - Dorsalgia, unspecified (ICD-10) Surgical History (Updated 01/03/23 @ 14:09 by Julieta Huggins) H/O cervical spine surgery ?Z98.890 - Other specified postprocedural states (ICD-10) H/O heart surgery ?Z98.890 - Other specified postprocedural states (ICD-10) H/O lumbosacral spine surgery ?Z98.890 - Other specified postprocedural states (ICD-10) Social History Smoking status: Former smoker Exam Narrative Exam Narrative: Nurses notes and vital signs reviewed and patient is not hypoxic. afebrile General: No apparent distress but moves slowly. Skin: Warm, dry, no pallor noted. No rash. Head: Normocephalic, atraumatic. Eye: Pupils are equal, round and EOMI. No scleral icterus. Ears, Nose, Mouth, and Throat: Oral mucosa is dry Cardiovascular: Bradycardia without murmur, gallop or rub. Respiratory: No accessory muscle use or respiratory distress. Lungs are clear to auscultation, no wheezing, rales or rhonchi Back: No midline thoracic or lumbar vertebral tenderness. No CVA tenderness Musculoskeletal: normal ROM, no calf or popliteal tenderness, no lower extremity edema/swelling GI: Abdomen is soft, non-distended. Normal bowel sounds. No tenderness to palpation. No rebound, guarding, or rigidity noted. Neurological: A&O x4. No cranial nerve dysfunction observed. No truncal ataxia. Moves all extremities. Sensation intact. Psychiatric: Cooperative and interactive. Normal mood and affect. Constitutional Vital Signs, click to edit/add: Last Vital Signs Temp 98.7 F 04/20/23 09:15 Pulse 64 04/20/23 10:50 Resp 16 04/20/23 10:50 BP 150/104 H 04/20/23 10:45 Pulse Ox 96 04/20/23 10:50 O2 Del Method Room Air 04/20/23 09:15 Course Vital Signs Vital signs: Vital Signs Temperature 98.7 F 04/20/23 09:15 Pulse Rate 62 04/20/23 09:15 Respiratory Rate 18 04/20/23 09:15 Blood Pressure 159/99 H 04/20/23 09:15 Pulse Oximetry 98 04/20/23 09:15 Oxygen Delivery Method Room Air 04/20/23 09:15 Temperature 98.7 F 04/20/23 09:15 Pulse Rate 64 04/20/23 10:50 Respiratory Rate 16 04/20/23 10:50 Blood Pressure 150/104 H 04/20/23 10:45 Pulse Oximetry 96 04/20/23 10:50 Oxygen Delivery Method Room Air 04/20/23 09:15 Medical Decision Making MDM Narrative Medical decision making narrative: Patient was placed on lunchroom monitor and EKG obtained. Blood drawn and sent for evaluation. chest x-ray was obtained and was unremarkable. The patient was given a liter of NS IVF. EKG reveals sinus bradycardia with a second-degree AV block, Mobitz type II. EKG was repeated for verification. Na 127, K 3.4, normal BUN, Cr 1.6, BNP and troponin negative. Covid negative. Call placed to Dr Gabriel - client development manager mechanical commissioning engineer - @ 1015 and I spoke with him @ 1050 to discuss this patient's case. He recommended transfer to [facility] and wanted the patient to be NPO for likely procedure/PM placement if warranted. Call placed @ 1055 to [facility] transfer line. We were told that they are discharge dependent for beds and may not be able to accept his transfer as a direct admission. I informed Dr Gabriel of this @ 11am and he asked to make this patient an ER to ER transfer. [facility] transfer line updated. I spoke with Dr Palmer in the ED and discussed the patient's case and Dr Gabriel's request for ER to ER transfer - he accepted. Call placed to arrange ambulance transport with cardiac monitoring. Patient informed of results, diagnosis and need for transfer and is agreeable. Lab Data Lab results reviewed: Yes I reviewed the patient's lab results Labs: Lab Results 04/20/23 04/20/23 Range/Units 09:36 09:40 WBC 10.1 (4.0-11.0) 10^3/uL RBC 4.45 L (4.70-6.10) 10^6/uL Hgb 14.6 (14.0-18.0) g/dL Hct 44.1 (42.0-54.0) % MCV 99.1 H (80.0-94.0) fL MCH 32.8 (25.9-34.0) pg MCHC 33.1 (29.9-35.2) g/dL RDW 16.4 H (11.0-15.0) % Plt Count 203 (150-450) 10^3/uL MPV 10.2 (9.5-13.5) fL Neut % (Auto) 52.7 (43.0-75.0) % Lymph % (Auto) 40.4 (20.5-60.0) % [place] % (Auto) 4.0 (1.7-12.0) % Eos % (Auto) 1.2 (0.9-7.0) % Baso % (Auto) 0.6 (0.2-2.0) % Neut # (Auto) 5.3 (1.4-6.5) 10^3/uL Lymph # (Auto) 4.1 H (1.2-3.8) 10^3/uL [place] # (Auto) 0.4 (0.3-0.8) 10^3/uL Eos # (Auto) 0.1 (0.0-0.7) 10^3/uL Baso # (Auto) 0.1 (0.0-0.1) 10^3/uL Abs Immat Gran (auto) 0.11 H (0.00-0.03) 10^3/uL Imm/Tot Granulo (auto) 1.1 H (0.0-0.5) % Sodium 127 L (136-145) mmol/L Potassium 3.4 L (3.5-5.1) mmol/L Chloride 94 L (98-107) mmol/L Carbon Dioxide 25.0 (21.0-32.0) mmol/L Anion Gap 11.4 BUN 11.0 (7.0-18.0) mg/dL Creatinine 1.60 H (0.70-1.30) mg/dL Est GFR ( Amer) 54 L (>=60) Est GFR (Non-Af Amer) 45 L (>=60) BUN/Creatinine Ratio 6.9 Glucose 91 (74-106) mg/dL Calcium 9.3 (8.5-10.1) mg/dL Troponin I High Sens 4.7 (4.0-76.1) pg/mL NT-Pro-B Natriuret Pep 58.0 (<=900.0) pg/mL SARS-CoV-2 (PCR) Negative (NEGATIVE) Imaging Data Chest x-ray: Radiologist's impression: Patient Name: ELENA TREJO MRN: [id number] date: 1965 Sex: M Assigned Patient Location: ER Current Patient Location: ER Accession/Order Number: [id number] Exam Date: 04/20/2023 09:40 Report Date: 04/20/2023 09:58 At the request of: ION SIMS Procedure: XR chest 1V EXAM: XR chest 1V HISTORY: . shortness of breath . COMPARISON: 04/16/2023 TECHNIQUE: Single view of the chest FINDINGS: Heart and vascularity are unremarkable. Lungs are free of focal infiltrates. EKG leads overlie the chest. IMPRESSION: No acute heart or lung disease identified. Electronically authenticated by: JULIO CESAR PARKER Date: 04/20/2023 09:58 ECG Data Interpretation: EKG interpretation: Emergency Department physician interpretation. Sinus bradycardia rhythm at 39bpm with 2nd degree AVB Mobtiz II. No ST segment elevation or depression. Repeat EKG (#2) interpretation: Emergency Department physician interpretation. Sinus bradycardia rhythm at 47bpm with 2nd degree AVB Mobtiz II. No ST segment elevation or depression. Critical Care Time Critical Care Time Critical Care Time: Yes Total Critical Care Time: 50 Attestation: this was time spent evaluating, diagnosing and monitoring the patient and his response to meds/treatment as well as time spent coordinating care with the client development manager - Dr Gabriel - and arranging transfer and transportation to the accepting facility, including my discussion with the ED attending - Dr Palmer. Discharge Plan Discharge Chief Complaint: Chest Pain Clinical Impression: Mobitz type 2 second degree atrioventricular block [facility] Time of Disposition Decision: 10:14 Discharge Location: [facility]
--- NOTE | 2023-04-20 09:38 | ECG_ITS ---
The [facility] Test Date: 2023-04-20 Pat Name: ELENA TREJO Department: Room: - Gender: Male Tire Balancer: : 1965 Requested By: PEE LAKHANI Order Number: [id number] Reading MD: PEE LAKHANI Measurements Intervals [place] Rate: 47 P: 30 [place]: 132 QRS: 16 QRSD: 88 T: 90 QT: 406 QTc: 368 Interpretive Statements 1130 Sinus bradycardia 2233 2nd degree AV block, Mobitz type II 8100 Low QRS voltage 9150 abnormal ECG Compared to ECG 04/20/2023 09:24:59 Left-axis deviation no longer present Electronically Signed On 04-23-2023 7:51:21 EDT by PEE LAKHANI
[2023-04-20] MEDS: 0.9 % SODIUM CHLORIDE 1,000 ML 1000 ML IV (09:40)
[2023-04-20] MEDS: ATROPINE SULFATE 0.1 MG/ML SYRINGE 1 MG INJ (09:40)
[2023-04-20 09:45] LABS: Basophils Absolute Auto 0.1 10^3/uL (0.0-0.1); Basophils Percent Auto 0.6 % (0.2-2.0); Eosinophils Absolute Auto 0.1 10^3/uL (0.0-0.7); Eosinophils Percent Auto 1.2 % (0.9-7.0); Hematocrit 44.1 % (42.0-54.0); Hemoglobin 14.6 g/dL (14.0-18.0); Immature Granulocytes Abs Auto 0.11 10^3/uL (0.00-0.03); Immature Granulocytes Pct Auto 1.1 % (0.0-0.5); Lymphocytes Absolute Auto 4.1 10^3/uL (1.2-3.8); Lymphocytes Percent Auto 40.4 % (20.5-60.0); Mean Corpuscular HGB Conc 33.1 g/dL (29.9-35.2); Mean Corpuscular Hemoglobin 32.8 pg (25.9-34.0); Mean Corpuscular Volume 99.1 fL (80.0-94.0); Mean Platelet Volume 10.2 fL (9.5-13.5); Monocytes Absolute Auto 0.4 10^3/uL (0.3-0.8); Neutrophils Absolute Auto 5.3 10^3/uL (1.4-6.5); Neutrophils Percent Auto 52.7 % (43.0-75.0); Platelet Count 203 10^3/uL (150-450); Red Blood Count 4.45 10^6/uL (4.70-6.10); Red Cell Distribution Width 16.4 % (11.0-15.0); White Blood Count 10.1 10^3/uL (4.0-11.0)
[2023-04-20 10:02] LABS: SARS-CoV-2 Ag NEGATIVE (NEGATIVE)
[2023-04-20 10:15] LABS: Anion Gap 11.4; BUN Creatinine Ratio 6.9; Calcium 9.3 mg/dL (8.5-10.1); Chloride 94 mmol/L (98-107); Estimated GFR (African America 54 (>=60); Estimated GFR (Non-African Ame 45 (>=60); Glucose 91 mg/dL (74-106); Potassium 3.4 mmol/L (3.5-5.1); Sodium 127 mmol/L (136-145); Troponin I High Sensitivity 4.7 pg/mL (4.0-76.1)
[2023-04-20 15:11] LABS: SARS-CoV-2 NAA NOT DETECTED (NOT DETECTE)
== END 2023-04-20 13:00 | disposition short-term general hospital (02) ==
PROVIDERS: Emergency Provider Emergency Medicine; PCP Family Medicine
DX: I44.1 Atrioventricular block, second degree (principal); I10 Essential (primary) hypertension; J43.9 Emphysema, unspecified; K21.9 Gastro-esophageal reflux disease without esophagitis; N40.0 Benign prostatic hyperplasia without lower urinary tract symptoms; E03.9 Hypothyroidism, unspecified; R56.9 Unspecified convulsions; Z87.891 Personal history of nicotine dependence; Z20.822 Contact with and (suspected) exposure to COVID-19; Z79.899 Other long term (current) drug therapy; Z79.82 Long term (current) use of aspirin; Z79.890 Hormone replacement therapy; Z98.890 Other specified postprocedural states
CPT/HCPCS: 36415; 71045; 80048; 83880; 84484; 85025; 87635; 87811; 93005; 96360; 96372; 99285; U0003

== ENCOUNTER 2023-05-18 11:38 | Outpatient (OUT) | payer OTHER, MEDICARE, SELFPAY ==
[2023-05-18 12:44] LABS: Chol HDL Ratio 3.7; Cholesterol 165 mg/dL (<=200); HDL Cholesterol 45 mg/dL (40-60); LDL Cholesterol Calculated 99.6 mg/dL; Triglycerides 102 mg/dL (<=150); VLDL CHOLESTEROL 20.4 mg/dL
== END 2023-05-18 11:39 | disposition home or self-care (01) ==
PROVIDERS: PCP Family Medicine; Visit Provider Nurse Practitioner
DX: E78.2 Mixed hyperlipidemia (principal)
CPT/HCPCS: 36415; 80061

== ENCOUNTER 2023-05-25 12:17 | Observation (INO) | payer OTHER, MEDICARE, SELFPAY ==
[2023-05-25] VITALS (58 sets, daily range): BP systolic 97–149; BP diastolic 59–91; PULSE 47–88; RESP 8–57; TEMP 36.4–36.6; O2SAT 74–100; BMI 29.4
--- NOTE | 2023-05-25 12:25 | ECG_ITS ---
The [facility] Test Date: 2023-05-25 Pat Name: ELENA TREJO Department: Room: - Gender: Male Traveling Operator: : 1965 Requested By: [id number] Order Number: [id number] Reading MD: PEE LAKHANI Measurements Intervals [place] Rate: 65 P: 51 MS: 108 QRS: -12 QRSD: 84 T: 7 QT: 416 QTc: 428 Interpretive Statements 1100 Sinus rhythm 2210 Short MS interval 84056 Inferior myocardial infarction with posterior extension, age undetermined 8102 Low QRS voltage in chest leads Non-Specific T wave inversion in III 9150 abnormal ECG Compared to ECG 04/20/2023 09:36:47 Short MS interval now present Myocardial infarct finding now present Sinus bradycardia no longer present Electronically Signed On 05-28-2023 6:57:22 EST by PEE LAKHANI
--- NOTE | 2023-05-25 12:25 | XR_ITS ---
The [place] [id number] Patient Name: ELENA TREJO MRN: [id number] date: 1965 Sex: M Assigned Patient Location: ER Current Patient Location: ER Accession/Order Number: [id number] Exam Date: 05/25/2023 12:55 Report Date: 05/25/2023 13:55 At the request of: LIZZIE ALEGRE Procedure: XR chest 2V EXAMINATION: XR chest 2V 05/25/2023 10:53 AM PST, [id number]. HISTORY: cp TECHNIQUE: 2 views of the chest were acquired. COMPARISONS: Correlated with the same day CT angiogram. FINDINGS: Lines/tubes/other: None. Heart and mediastinum: No cardiomegaly. Bones: No acute osseous abnormality. Lungs: Clear. Pleura: No pleural effusion or pneumothorax. Other: No pneumoperitoneum. XR/XR chest 2V IMPRESSION: No acute cardiopulmonary abnormality. Electronically authenticated by: WALT LAMA Date: 05/25/2023 13:55
--- NOTE | 2023-05-25 12:39 | ED.GENADUL1 ---
Documented by User: GISSLELE Wilson 05/25/23 16:28 HPI - General Adult General Chief complaint: Chest Pain Stated complaint: CHEST PAIN Time Seen by Provider: 05/25/23 12:25 Mode of arrival: ambulance History of Present Illness HPI narrative: patient is a 58-year-old male presents to the Emergency Room with concerns of chest pain. Patient states shortly prior to arrival he was going through his freezer moving items around when he developed sharp pain in his chest with a sensation of feeling lightheaded,patient also notes he was very short of breath. pain was radiating to his left arm stopping at the elbow. Patient notes he felt like he was going to pass out and sat down and took a nitroglycerin tablet, contacted EMS who arrived and administered an additional nitroglycerin spray and pain then fully resolved. Patient notes headache at current time states she has a history of migraines. Nausea is improved. patient appears in no distress at present time, states he has a [id number] headache, but has a history of migraine headaches. Patient wearing a Holter monitor per cardiology and patient anticipates at some point they're determining a heart catheterization Patient reports no symptoms with exertion earlier today.does have chronic back pain which patient notes a separate Location: Reports chest Radiation: Reports extremity (left arm) Related Data Home Medications Medication Instructions Recorded Confirmed levothyroxine 100 mcg tablet 200 mcg PO DAILY 12/24/22 05/25/23 metoprolol tartrate 50 mg tablet 50 mg PO BIDWM 12/24/22 05/25/23 topiramate 100 mg tablet 100 mg PO .qd 12/24/22 05/25/23 topiramate 200 mg tablet 200 mg PO .QHS 12/24/22 05/25/23 trazodone 100 mg tablet 100 mg PO .QHS 12/24/22 05/25/23 albuterol 90 mcg/actuation aerosol 90 mcg inhalation DAILY 12/25/22 05/25/23 inhaler aspirin 81 mg chewable tablet 81 mg PO DAILY 12/25/22 05/25/23 (Aspirin Childrens) atorvastatin 10 mg tablet 10 mg PO .qhs 05/25/23 05/25/23 nitroglycerin 0.4 mg sublingual 0.4 mg sublingual DAILY PRN chest 05/25/23 05/25/23 tablet pain tizanidine 4 mg tablet 4 mg PO .qhs 05/25/23 05/25/23 Allergies Allergy/AdvReac Type Severity Reaction Status Date / Time Penicillins Allergy Severe Verified 04/16/23 19:25 strawbery Allergy Uncoded 04/16/23 19:25 Review of Systems ROS Constitutional Denies: fever or chills Ears, nose, mouth, and throat Denies: throat pain or neck pain Cardiovascular Reports: chest pain and palpitations; Denies: edema Respiratory Reports: shortness of breath; Denies: cough or wheezing Gastrointestinal Reports: nausea; Denies: abdominal pain or vomiting Musculoskeletal Reports: back pain Integumentary/Breast Denies: rash or itching Neurological Reports: headache; Denies: numbness in extremities, weakness in extremities, lack of coordination or behavioral changes Psychiatric Denies: anxiety Hematologic/Lymphatic Denies: easy bruising PFSH PFSH Medical History (Updated 05/25/23 @ 16:28 by GISSELLE Wilson) Acid reflux ?K21.9 - Gastro-esophageal reflux disease without esophagitis (ICD-10) Back pain ?M54.9 - Dorsalgia, unspecified (ICD-10) Emphysema of lung ?J43.9 - Emphysema, unspecified (ICD-10) Enlarged prostate ?N40.0 - Benign prostatic hyperplasia without lower urinary tract symptoms (ICD-10) Heartburn ?R12 - Heartburn (ICD-10) Hypothyroid ?E03.9 - Hypothyroidism, unspecified (ICD-10) Neck pain ?M54.2 - Cervicalgia (ICD-10) Numbness and tingling ?R20.0 - Anesthesia of skin (ICD-10) ?R20.2 - Paresthesia of skin (ICD-10) Seizure ?R56.9 - Unspecified convulsions (ICD-10) Upper back pain ?M54.9 - Dorsalgia, unspecified (ICD-10) Surgical History (Updated 01/03/23 @ 14:09 by Julieta Huggins) H/O cervical spine surgery ?Z98.890 - Other specified postprocedural states (ICD-10) H/O heart surgery ?Z98.890 - Other specified postprocedural states (ICD-10) H/O lumbosacral spine surgery ?Z98.890 - Other specified postprocedural states (ICD-10) Social History Smoking status: Former smoker Exam Narrative Exam Narrative: Nurses notes and vital signs reviewed and patient is not hypoxic. General: The patient appears well and in no apparent distress. Patient is resting comfortably on cart. Skin: Warm, dry, no pallor noted. Head: Normocephalic, atraumatic Neck: Supple, trachea mid-line, no tenderness, no lymphadenopathy Eye: Pupils are equal, round and reactive to light, EOMI Ears, Nose, Mouth, and Throat: TM are clear, normal light reflex, oral mucosa is moist, no posterior oropharynx erythema or hypertrophy, uvula is mid-line Cardiovascular: Regular Rate and Rhythm Respiratory: Patient is in no distress, no accessory muscle use, lungs are clear to auscultation, no wheezing, rales or rhonchi. Chest Wall: no tenderness Back: mild lower lumbar tenderness, patient notes chronic, no CVA tenderness Musculoskeletal: normal ROM, no tenderness, no swelling GI: Normal bowel sounds, no tenderness to palpation, no masses appreciated. No rebound, guarding, or rigidity noted. Neurological: A&O x4 Psychiatric: Cooperative Constitutional Vital Signs, click to edit/add: Last Vital Signs Temp 97.5 F L 05/25/23 16:34 Pulse 51 L 05/25/23 16:34 Resp 18 05/25/23 16:34 BP 149/85 H 05/25/23 16:34 Pulse Ox 99 05/25/23 16:34 O2 Del Method Room Air 05/25/23 16:34 Course Vital Signs Vital signs: Vital Signs Pulse Rate 67 05/25/23 12:19 Respiratory Rate 13 05/25/23 12:19 Pulse Oximetry 100 05/25/23 12:19 Temperature 97.5 F L 05/25/23 16:34 Pulse Rate 51 L 05/25/23 16:34 Respiratory Rate 18 05/25/23 16:34 Blood Pressure 149/85 H 05/25/23 16:34 Pulse Oximetry 99 05/25/23 16:34 Oxygen Delivery Method Room Air 05/25/23 16:34 Medical Decision Making MDM Narrative Medical decision making narrative: patient takes aspirin daily, given additional 162 mg here. Patient had two doses of nitroglycerin prior to arrival, subsequent headache which developed after but did have complete relief of his chest discomfort. Patient is wearing a environmental monitoring specialist for one month. He [facility] cardiology group. patient states he quit smoking two years ago. Patient given Tylenol for his headache here. patient reevaluated, denies chest pain. States he does get intermittently short of breath and lightheaded. Patient notes headache stilll present but not severe, did take his Topamax this morning. We discussed his shortness of breath symptoms with preliminary lab review and chest x-ray, recommend CTA of the chest for further investigation. discussed laboratory studies, CTA of the chest. Patient notes his symptoms have come and gone even at rest, but are very brief, his 2nd troponin is still within normal limits. Patient notes only modest improvement with his headache with Toradol Reglan and Benadryl. Patient does appear more relaxed. I discussed his case with his family doctor Dr. Guadalupe, regarding presentation and current workup going into the weekend. Recommends we contact cardiology to see if they want him up in [place] for further testing. spoke with Dr. Franks [facility] cardiology regarding patient's presentation, symptoms and lab studies. Advised that they would not do a cardiac stress test over the weekend or stress echo. Advises can be done Sunday with a Meli but if patient still expressed his symptoms would still recommend admission for cycling of enzymes. I did speak then with Dr. Guadalupe who is agreeable to admit the patient here cycling enzymes and observing for symptoms ICU. Pt and spouse agreeable with admission. Lab Data Labs: Lab Results 05/25/23 05/25/23 Range/Units 12:30 14:25 WBC 11.6 H (4.0-11.0) 10^3/uL RBC 3.56 L (4.70-6.10) 10^6/uL Hgb 11.8 L (14.0-18.0) g/dL Hct 36.7 L (42.0-54.0) % MCV 103.1 H (80.0-94.0) fL MCH 33.1 (25.9-34.0) pg MCHC 32.2 (29.9-35.2) g/dL RDW 17.5 H (11.0-15.0) % Plt Count 229 (150-450) 10^3/uL MPV 10.4 (9.5-13.5) fL Neut % (Auto) 49.7 (43.0-75.0) % Lymph % (Auto) 39.8 (20.5-60.0) % [place] % (Auto) 8.5 (1.7-12.0) % Eos % (Auto) 0.5 L (0.9-7.0) % Baso % (Auto) 0.3 (0.2-2.0) % Neut # (Auto) 5.7 (1.4-6.5) 10^3/uL Lymph # (Auto) 4.6 H (1.2-3.8) 10^3/uL [place] # (Auto) 1.0 H (0.3-0.8) 10^3/uL Eos # (Auto) 0.1 (0.0-0.7) 10^3/uL Baso # (Auto) 0.0 (0.0-0.1) 10^3/uL Abs Immat Gran (auto) 0.14 H (0.00-0.03) 10^3/uL Imm/Tot Granulo (auto) 1.2 H (0.0-0.5) % Sodium 134 L (136-145) mmol/L Potassium 3.8 (3.5-5.1) mmol/L Chloride 104 (98-107) mmol/L Carbon Dioxide 23.2 (21.0-32.0) mmol/L Anion Gap 10.6 BUN 11.0 (7.0-18.0) mg/dL Creatinine 1.03 (0.70-1.30) mg/dL Est GFR ( Amer) >60 (>=60) Est GFR (Non-Af Amer) >60 (>=60) BUN/Creatinine Ratio 10.7 Glucose 101 (74-106) mg/dL Calcium 8.6 (8.5-10.1) mg/dL Total Bilirubin 0.3 (0.2-1.0) mg/dL AST 16 (15-37) U/L ALT 32 (16-63) U/L Alkaline Phosphatase 89 (46-116) U/L Troponin I High Sens 5.6 <4.0 L (4.0-76.1) pg/mL NT-Pro-B Natriuret Pep 321.0 (<=900.0) pg/mL Total Protein 7.4 (6.4-8.2) g/dL Albumin 3.6 (3.4-5.0) g/dL Globulin 3.8 g/dL Albumin/Globulin Ratio 0.9 Imaging Data Chest x-ray: Attestation: I have reviewed the pertinent imaging results. Radiologist's impression: Procedure: XR chest 2V EXAMINATION: XR chest 2V 05/25/2023 10:53 AM PST, [id number]. HISTORY: cp TECHNIQUE: 2 views of the chest were acquired. COMPARISONS: Correlated with the same day CT angiogram. FINDINGS: Lines/tubes/other: None. Heart and mediastinum: No cardiomegaly. Bones: No acute osseous abnormality. Lungs: Clear. Pleura: No pleural effusion or pneumothorax. Other: No pneumoperitoneum. IMPRESSION: No acute cardiopulmonary abnormality. Electronically authenticated by: WALT LAMA Date: 05/25/2023 13:55 CT scan - chest: Attestation: I personally reviewed and interpreted this imaging study as follows: Radiologist's impression: Procedure: CT angio chest EXAM: CT angio chest; [id number] REASON FOR EXAM: r/o pE TECHNIQUE: Helical CT images of the chest were obtained after the administration of IV contrast. Multiplanar reformats and maximum intensity projection images were created at the scanner. Dose reduction technique used: Automated exposure control and/or adjustment of the mA and/or kV according to patient size and/or use of iterative reconstruction technique. COMPARISON: CT chest 12/24/2022. FINDINGS: Technical quality: Good. Chest: Support devices: None. Visualized Thyroid: No nodules. Chest wall: Marked bilateral gynecomastia. Светлана/mediastinum/esophagus: No mass. Thoracic lymph nodes: No enlarged supraclavicular, mediastinal, hilar or axillary lymph nodes. Heart and vasculature: -No pulmonary artery filling defect to suggest pulmonary embolism. -No pericardial effusion or aortic aneurysm. Visualized portions of the upper abdomen: Within normal limits. Musculoskeletal: No acute abnormality or suspicious osseous lesion. Lungs/airways: -No significant nodule or infiltrate. -The central airways are patent. Pleura: No pleural effusion or pneumothorax. IMPRESSION: Negative exam. No pulmonary embolism or any acute cardiopulmonary abnormality demonstrated. Electronically authenticated by: WALT LAMA Date: 05/25/2023 13:59 ECG Data Attestation: I personally reviewed and interpreted this ECG as follows: Interpretation: EKG interpretation: Emergency Department physician interpretation, normal sinus rhythm 65 bpm, no ectopy, no ST segment elevation, normal axis.possible remote inferior myocardial infarction Discharge Plan Discharge Chief Complaint: Chest Pain Clinical Impression: Chest pain Patient Disposition: Admitted as Observation Time of Disposition Decision: 16:28 Condition: Good Discharge Date/Time: 05/25/23 17:15 Documented by User: Zaire Perez MD 05/25/23 17:37 HPI - General Adult General Chief complaint: Chest Pain Stated complaint: CHEST PAIN Time Seen by Provider: 05/25/23 12:25 Related Data Home Medications Medication Instructions Recorded Confirmed levothyroxine 100 mcg tablet 200 mcg PO DAILY 12/24/22 05/25/23 metoprolol tartrate 50 mg tablet 50 mg PO BIDWM 12/24/22 05/25/23 topiramate 100 mg tablet 100 mg PO .qd 12/24/22 05/25/23 topiramate 200 mg tablet 200 mg PO .QHS 12/24/22 05/25/23 trazodone 100 mg tablet 100 mg PO .QHS 12/24/22 05/25/23 albuterol 90 mcg/actuation aerosol 90 mcg inhalation DAILY 12/25/22 05/25/23 inhaler aspirin 81 mg chewable tablet 81 mg PO DAILY 12/25/22 05/25/23 (Aspirin Childrens) atorvastatin 10 mg tablet 10 mg PO .qhs 05/25/23 05/25/23 nitroglycerin 0.4 mg sublingual 0.4 mg sublingual DAILY PRN chest 05/25/23 05/25/23 tablet pain tizanidine 4 mg tablet 4 mg PO .qhs 05/25/23 05/25/23 Allergies Allergy/AdvReac Type Severity Reaction Status Date / Time Penicillins Allergy Severe Verified 04/16/23 19:25 strawbery Allergy Uncoded 04/16/23 19:25 [facility] Medical History (Updated 05/25/23 @ 16:28 by GISSELLE Wilson) Acid reflux ?K21.9 - Gastro-esophageal reflux disease without esophagitis (ICD-10) Back pain ?M54.9 - Dorsalgia, unspecified (ICD-10) Emphysema of lung ?J43.9 - Emphysema, unspecified (ICD-10) Enlarged prostate ?N40.0 - Benign prostatic hyperplasia without lower urinary tract symptoms (ICD-10) Heartburn ?R12 - Heartburn (ICD-10) Hypothyroid ?E03.9 - Hypothyroidism, unspecified (ICD-10) Neck pain ?M54.2 - Cervicalgia (ICD-10) Numbness and tingling ?R20.0 - Anesthesia of skin (ICD-10) ?R20.2 - Paresthesia of skin (ICD-10) Seizure ?R56.9 - Unspecified convulsions (ICD-10) Upper back pain ?M54.9 - Dorsalgia, unspecified (ICD-10) Surgical History (Updated 01/03/23 @ 14:09 by Julieta Huggins) H/O cervical spine surgery ?Z98.890 - Other specified postprocedural states (ICD-10) H/O heart surgery ?Z98.890 - Other specified postprocedural states (ICD-10) H/O lumbosacral spine surgery ?Z98.890 - Other specified postprocedural states (ICD-10) Social History Smoking status: Former smoker Exam Constitutional Vital Signs, click to edit/add: Last Vital Signs Temp 97.5 F L 05/25/23 16:34 Pulse 51 L 05/25/23 16:34 Resp 18 05/25/23 16:34 BP 149/85 H 05/25/23 16:34 Pulse Ox 99 05/25/23 16:34 O2 Del Method Room Air 05/25/23 16:34 Course Vital Signs Vital signs: Vital Signs Pulse Rate 67 05/25/23 12:19 Respiratory Rate 13 05/25/23 12:19 Pulse Oximetry 100 05/25/23 12:19 Temperature 97.5 F L 05/25/23 16:34 Pulse Rate 51 L 05/25/23 16:34 Respiratory Rate 18 05/25/23 16:34 Blood Pressure 149/85 H 05/25/23 16:34 Pulse Oximetry 99 05/25/23 16:34 Oxygen Delivery Method Room Air 05/25/23 16:34 Medical Decision Making MDM Narrative Medical decision making narrative: patient takes aspirin daily, given additional 162 mg here. Patient had two doses of nitroglycerin prior to arrival, subsequent headache which developed after but did have complete relief of his chest discomfort. Patient is wearing a environmental monitoring specialist for one month. He [facility] cardiology group. patient states he quit smoking two years ago. Patient given Tylenol for his headache here. patient reevaluated, denies chest pain. States he does get intermittently short of breath and lightheaded. Patient notes headache stilll present but not severe, did take his Topamax this morning. We discussed his shortness of breath symptoms with preliminary lab review and chest x-ray, recommend CTA of the chest for further investigation. discussed laboratory studies, CTA of the chest. Patient notes his symptoms have come and gone even at rest, but are very brief, his 2nd troponin is still within normal limits. Patient notes only modest improvement with his headache with Toradol Reglan and Benadryl. Patient does appear more relaxed. I discussed his case with his family doctor Dr. Guadalupe, regarding presentation and current workup going into the weekend. Recommends we contact cardiology to see if they want him up in [place] for further testing. spoke with Dr. Franks [facility] cardiology regarding patient's presentation, symptoms and lab studies. Advised that they would not do a cardiac stress test over the weekend or stress echo. Advises can be done Sunday with a Meli but if patient still expressed his symptoms would still recommend admission for cycling of enzymes. I did speak then with Dr. Guadalupe who is agreeable to admit the patient here cycling enzymes and observing for symptoms ICU. Pt and spouse agreeable with admission. I, Dr Perez, have reviewed the above progress note and course of action in the ER; agree with the above. I have personally seen and evaluated this patient, gone over history and physical, and discussed disposition and treatment plan with the patient. Critical care time 35 minutes exclusive from separate billable procedures that were performed. The following was considered in the determination of critical care but not limited to the level of medical decision making, intensive cardiac and/or respiratory monitoring, frequent vital sign monitoring, evaluation of laboratory studies, evaluation of radiographic studies, oxygen monitoring, and constant monitoring and speaking to family at bedside Lab Data Labs: Lab Results 05/25/23 05/25/23 Range/Units 12:30 14:25 WBC 11.6 H (4.0-11.0) 10^3/uL RBC 3.56 L (4.70-6.10) 10^6/uL Hgb 11.8 L (14.0-18.0) g/dL Hct 36.7 L (42.0-54.0) % MCV 103.1 H (80.0-94.0) fL MCH 33.1 (25.9-34.0) pg MCHC 32.2 (29.9-35.2) g/dL RDW 17.5 H (11.0-15.0) % Plt Count 229 (150-450) 10^3/uL MPV 10.4 (9.5-13.5) fL Neut % (Auto) 49.7 (43.0-75.0) % Lymph % (Auto) 39.8 (20.5-60.0) % [place] % (Auto) 8.5 (1.7-12.0) % Eos % (Auto) 0.5 L (0.9-7.0) % Baso % (Auto) 0.3 (0.2-2.0) % Neut # (Auto) 5.7 (1.4-6.5) 10^3/uL Lymph # (Auto) 4.6 H (1.2-3.8) 10^3/uL [place] # (Auto) 1.0 H (0.3-0.8) 10^3/uL Eos # (Auto) 0.1 (0.0-0.7) 10^3/uL Baso # (Auto) 0.0 (0.0-0.1) 10^3/uL Abs Immat Gran (auto) 0.14 H (0.00-0.03) 10^3/uL Imm/Tot Granulo (auto) 1.2 H (0.0-0.5) % Sodium 134 L (136-145) mmol/L Potassium 3.8 (3.5-5.1) mmol/L Chloride 104 (98-107) mmol/L Carbon Dioxide 23.2 (21.0-32.0) mmol/L Anion Gap 10.6 BUN 11.0 (7.0-18.0) mg/dL Creatinine 1.03 (0.70-1.30) mg/dL Est GFR ( Amer) >60 (>=60) Est GFR (Non-Af Amer) >60 (>=60) BUN/Creatinine Ratio 10.7 Glucose 101 (74-106) mg/dL Calcium 8.6 (8.5-10.1) mg/dL Total Bilirubin 0.3 (0.2-1.0) mg/dL AST 16 (15-37) U/L ALT 32 (16-63) U/L Alkaline Phosphatase 89 (46-116) U/L Troponin I High Sens 5.6 <4.0 L (4.0-76.1) pg/mL NT-Pro-B Natriuret Pep 321.0 (<=900.0) pg/mL Total Protein 7.4 (6.4-8.2) g/dL Albumin 3.6 (3.4-5.0) g/dL Globulin 3.8 g/dL Albumin/Globulin Ratio 0.9 Discharge Plan Discharge Chief Complaint: Chest Pain Clinical Impression: Chest pain Patient Disposition: Admitted as Observation Time of Disposition Decision: 16:28 Condition: Good Discharge Date/Time: 05/25/23 17:15
[2023-05-25 12:40] LABS: Basophils Percent Auto 0.3 % (0.2-2.0); Eosinophils Absolute Auto 0.1 10^3/uL (0.0-0.7); Eosinophils Percent Auto 0.5 % (0.9-7.0); Hematocrit 36.7 % (42.0-54.0); Hemoglobin 11.8 g/dL (14.0-18.0); Immature Granulocytes Abs Auto 0.14 10^3/uL (0.00-0.03); Immature Granulocytes Pct Auto 1.2 % (0.0-0.5); Lymphocytes Absolute Auto 4.6 10^3/uL (1.2-3.8); Lymphocytes Percent Auto 39.8 % (20.5-60.0); Mean Corpuscular HGB Conc 32.2 g/dL (29.9-35.2); Mean Corpuscular Hemoglobin 33.1 pg (25.9-34.0); Mean Corpuscular Volume 103.1 fL (80.0-94.0); Mean Platelet Volume 10.4 fL (9.5-13.5); Monocytes Percent Auto 8.5 % (1.7-12.0); Neutrophils Absolute Auto 5.7 10^3/uL (1.4-6.5); Neutrophils Percent Auto 49.7 % (43.0-75.0); Platelet Count 229 10^3/uL (150-450); Red Blood Count 3.56 10^6/uL (4.70-6.10); Red Cell Distribution Width 17.5 % (11.0-15.0); White Blood Count 11.6 10^3/uL (4.0-11.0)
[2023-05-25 12:56] LABS: Anion Gap 10.6
[2023-05-25 13:01] LABS: Alanine Aminotransferase 32 U/L (16-63); Albumin Globulin Ratio 0.9; Albumin Level 3.6 g/dL (3.4-5.0); Alkaline Phosphatase 89 U/L (46-116); Aspartate Amino Transferase 16 U/L (15-37); BUN Creatinine Ratio 10.7; Bilirubin Total 0.3 mg/dL (0.2-1.0); Calcium 8.6 mg/dL (8.5-10.1); Carbon Dioxide 23.2 mmol/L (21.0-32.0); Chloride 104 mmol/L (98-107); Estimated GFR (African America >60 (>=60); Estimated GFR (Non-African Ame >60 (>=60); Globulin 3.8 g/dL; Glucose 101 mg/dL (74-106); Potassium 3.8 mmol/L (3.5-5.1); Sodium 134 mmol/L (136-145); Total Protein 7.4 g/dL (6.4-8.2); Troponin I High Sensitivity 5.6 pg/mL (4.0-76.1)
[2023-05-25] MEDS: ACETAMINOPHEN 500 MG TABLET 1000 MG PO ×2 (13:03→23:58)
--- NOTE | 2023-05-25 13:11 | CT_ITS ---
The [address] [address] Patient Name: ELENA TREJO MRN: [id number] date: 1965 Sex: M Assigned Patient Location: ER Current Patient Location: ER Accession/Order Number: [id number] Exam Date: 05/25/2023 13:25 Report Date: 05/25/2023 13:59 At the request of: ALEKSANDRA LOTT Procedure: CT angio chest EXAM: CT angio chest; [id number] REASON FOR EXAM: r/o pE TECHNIQUE: Helical CT images of the chest were obtained after the administration of IV contrast. Multiplanar reformats and maximum intensity projection images were created at the scanner. Dose reduction technique used: Automated exposure control and/or adjustment of the mA and/or kV according to patient size and/or use of iterative reconstruction technique. COMPARISON: CT chest 12/24/2022. FINDINGS: Technical quality: Good. Chest: Support devices: None. Visualized Thyroid: No nodules. Chest wall: Marked bilateral gynecomastia. Светлана/mediastinum/esophagus: No mass. Thoracic lymph nodes: No enlarged supraclavicular, mediastinal, hilar or axillary lymph nodes. Heart and vasculature: -No pulmonary artery filling defect to suggest pulmonary embolism. -No pericardial effusion or aortic aneurysm. Visualized portions of the upper abdomen: Within normal limits. Musculoskeletal: No acute abnormality or suspicious osseous lesion. Lungs/airways: -No significant nodule or infiltrate. -The central airways are patent. Pleura: No pleural effusion or pneumothorax. CT/CT angio chest IMPRESSION: Negative exam. No pulmonary embolism or any acute cardiopulmonary abnormality demonstrated. Electronically authenticated by: WALT LAMA Date: 05/25/2023 13:59
[2023-05-25] MEDS: KETOROLAC TROMETHAMINE 30 MG/ML VIAL IVP (14:01)
[2023-05-25] MEDS: DIPHENHYDRAMINE HCL 50 MG/ML (1ML) VIAL 25 MG IV (14:01)
[2023-05-25] MEDS: METOCLOPRAMIDE HCL 10 MG/2 ML VIAL IVP (14:01)
[2023-05-25 15:11] LABS: Troponin I High Sensitivity <4.0 pg/mL (4.0-76.1)
[2023-05-25 18:06] LABS: Magnesium 2.1 mg/dL (1.8-2.4)
[2023-05-25 18:16] LABS: Troponin I High Sensitivity 5.2 pg/mL (4.0-76.1)
[2023-05-25] MEDS: PANTOPRAZOLE SODIUM 40 MG VIAL IV (18:40)
[2023-05-25] MEDS: ISOSORBIDE MONONITRATE 30 MG TAB.ER.24H PO (18:40)
[2023-05-25 21:20] LABS: Troponin I High Sensitivity 4.3 pg/mL (4.0-76.1)
[2023-05-25] MEDS: TOPIRAMATE 100 MG TABLET 200 MG PO (22:35)
[2023-05-25] MEDS: ATORVASTATIN CALCIUM 10 MG TABLET PO (22:35)
[2023-05-25] MEDS: TRAZODONE HCL 50 MG TABLET 100 MG PO (22:35)
[2023-05-25] MEDS: TIZANIDINE HCL 4 MG TABLET PO (22:35)
[2023-05-26] VITALS (20 sets, daily range): BP systolic 98–114; BP diastolic 67–80; PULSE 61–86; RESP 11–23; TEMP 36.5–36.8; O2SAT 93–98
[2023-05-26 05:21] LABS: Basophils Percent Auto 0.3 % (0.2-2.0); Eosinophils Absolute Auto 0.1 10^3/uL (0.0-0.7); Eosinophils Percent Auto 0.6 % (0.9-7.0); Hematocrit 30.4 % (42.0-54.0); Hemoglobin 10.1 g/dL (14.0-18.0); Immature Granulocytes Abs Auto 0.12 10^3/uL (0.00-0.03); Immature Granulocytes Pct Auto 1.3 % (0.0-0.5); Lymphocytes Absolute Auto 2.9 10^3/uL (1.2-3.8); Lymphocytes Percent Auto 32.6 % (20.5-60.0); Mean Corpuscular HGB Conc 33.2 g/dL (29.9-35.2); Mean Corpuscular Hemoglobin 34.1 pg (25.9-34.0); Mean Corpuscular Volume 102.7 fL (80.0-94.0); Mean Platelet Volume 9.9 fL (9.5-13.5); Monocytes Absolute Auto 0.7 10^3/uL (0.3-0.8); Monocytes Percent Auto 7.4 % (1.7-12.0); Neutrophils Absolute Auto 5.2 10^3/uL (1.4-6.5); Neutrophils Percent Auto 57.8 % (43.0-75.0); Platelet Count 201 10^3/uL (150-450); Red Blood Count 2.96 10^6/uL (4.70-6.10); Red Cell Distribution Width 17.3 % (11.0-15.0)
[2023-05-26 05:26] LABS: Anion Gap 13.3; BUN Creatinine Ratio 11.4; Calcium 7.8 mg/dL (8.5-10.1); Carbon Dioxide 24.8 mmol/L (21.0-32.0); Chloride 105 mmol/L (98-107); Estimated GFR (African America >60 (>=60); Estimated GFR (Non-African Ame >60 (>=60); Glucose 92 mg/dL (74-106); Potassium 4.1 mmol/L (3.5-5.1); Sodium 139 mmol/L (136-145)
[2023-05-26] MEDS: LEVOTHYROXINE SODIUM 100 MCG TABLET 200 MCG PO (08:36)
[2023-05-26] MEDS: ISOSORBIDE MONONITRATE 30 MG TAB.ER.24H PO (08:36)
[2023-05-26] MEDS: METOPROLOL TARTRATE 50 MG TABLET PO (08:36)
[2023-05-26] MEDS: TOPIRAMATE 100 MG TABLET PO (08:37)
[2023-05-26] MEDS: ASPIRIN 81 MG TAB.CHEW PO (08:38)
--- NOTE | 2023-05-26 08:38 | P.HP_ITS ---
H&P: HPI History of Present Illness Chief complaint: CHEST PAIN Narrative: patient is a 58-year-old male with past medical history of chronic migraine headaches, hypertension, hypothyroidism, hyperlipidemia who presented to the emergency department yesterday evening with an episode of chest pain. Patient states he was getting ready to eat and was getting in the freezer to get a bag of PEs when he developed some chest pain that radiated into his back. He said it also went down the left arm and he felt dizzy and some nausea when it occurred. Patient was given nitroglycerin from his primary care physician and he took one and then called EMS. When EMS arrived they gave him another dose of nitroglycerin and his chest pain resolved in route to the hospital. In the emergency department they got two troponins which both were negative and a CTA of the chest which was negative. Notified he [facility] cardiology as patient has a event monitor from them currently in place. The recommendation was to observe patient overnight and possible discharge with outpatient follow-up. Patient notes he has had a stress test that has been several years ago and it was normal at the time. He states he's also had a surgery on one of his heart valves and has a piece of mesh which was over twenty years ago and he wonders if this has anything to do with his symptoms he's been having. He states he is taken about three doses of nitroglycerin since he got the prescription a month ago, he takes a daily baby aspirin and he takes a statin medication. He has a history of smoking but quit two years ago, family history of myocardial infarction in his father who had myocardial infarction at the age of sixty-two and his sister has a history of stroke in her 50s. Patient denies ever having a heart catheterization or any other intervention. He recently established with [facility] cardiology.at the time of admission exam patient denies any further chest pain states he has been getting some shortness of breath even at rest at times. He also admits to more frequent migraine headaches and has been taking a lot of Excedrin migraine despite his Topamax. Review of Systems ROS Narrative ROS: a complete review of systems were reviewed with patient and are positive as below or listed in History of Chief Complaint. General: no fever, chills, night sweats Head: no headache, trauma, visual changes, nausea or vomiting Skin: no reported rashes, itching or sores Eyes: no blurriness of vision Ears: no reported hearing loss, vertigo, earache, or tinnitus Throat: no sore throat, hoarseness, swelling of neck, or tongue pain Heart: no current chest pain Lungs: no shortness of breath or cough GI: no diarrhea or vomiting/nausea Urinary: no urinary urgency, frequency or pain Neuro: no numbness or tingling HEM: no bleeding issues or bruising ENDO: no thyroid problems Psych: no anxiety or depression PFSH PFSH Medical History (Updated 05/26/23 @ 13:12 by Melissa Chandra DO) Acid reflux ?K21.9 - Gastro-esophageal reflux disease without esophagitis (ICD-10) Back pain ?M54.9 - Dorsalgia, unspecified (ICD-10) Emphysema of lung ?J43.9 - Emphysema, unspecified (ICD-10) Enlarged prostate ?N40.0 - Benign prostatic hyperplasia without lower urinary tract symptoms (ICD-10) Heartburn ?R12 - Heartburn (ICD-10) Hypothyroid ?E03.9 - Hypothyroidism, unspecified (ICD-10) Neck pain ?M54.2 - Cervicalgia (ICD-10) Numbness and tingling ?R20.0 - Anesthesia of skin (ICD-10) ?R20.2 - Paresthesia of skin (ICD-10) Seizure ?R56.9 - Unspecified convulsions (ICD-10) Upper back pain ?M54.9 - Dorsalgia, unspecified (ICD-10) Surgical History H/O cervical spine surgery ?Z98.890 - Other specified postprocedural states (ICD-10) H/O heart surgery ?Z98.890 - Other specified postprocedural states (ICD-10) H/O lumbosacral spine surgery ?Z98.890 - Other specified postprocedural states (ICD-10) Social History Smoking status: Former smoker Meds Home Medications and Allergies Home Medications Medication Instructions Recorded Confirmed Type levothyroxine 100 mcg tablet 200 mcg PO DAILY 12/24/22 05/25/23 History metoprolol tartrate 50 mg tablet 50 mg PO BIDWM 12/24/22 05/25/23 History topiramate 100 mg tablet 100 mg PO .qd 12/24/22 05/25/23 History topiramate 200 mg tablet 200 mg PO .QHS 12/24/22 05/25/23 History trazodone 100 mg tablet 100 mg PO .QHS 12/24/22 05/25/23 History albuterol 90 mcg/actuation aerosol 90 mcg inhalation DAILY 12/25/22 05/25/23 History inhaler aspirin 81 mg chewable tablet 81 mg PO DAILY 12/25/22 05/25/23 History (Aspirin Childrens) atorvastatin 10 mg tablet 10 mg PO .qhs 05/25/23 05/25/23 History nitroglycerin 0.4 mg sublingual 0.4 mg sublingual DAILY PRN chest 05/25/23 05/25/23 History tablet pain tizanidine 4 mg tablet 4 mg PO .qhs 05/25/23 05/25/23 History Allergies Allergy/AdvReac Type Severity Reaction Status Date / Time Penicillins Allergy Severe Verified 04/16/23 19:25 strawbery Allergy Uncoded 04/16/23 19:25 Exam Narrative Exam Narrative: General: Patient is alert, and oriented to person, place and time with normal affect, proper hygiene Skin: no visible rashes, or ulcers Head: atraumatic, acephalic Eyes: PERRLA, no nystagmus present, conjunctiva clear, no scleral icterus Ears: normal gross auditory acuity Neck: no masses palpated, normal thyroid, no JVD Heart: Normal rate and rhythm, no murmurs/rubs/gallops Lungs: no audible wheezes, crackles and normal breath sounds all lung dewey Abdomen: Normal audible bowel sounds, no distension, No palpable masses, no organomegaly, no rebound/guarding/ or rigidity Musculoskeletal: ROM is limited due to being in hospital bed, no swelling nerissa ateral lower extremities Neuro: CN II-X grossly intact, normal sensation upper and lower extremities Constitutional Vital Signs, click to edit/add: Last Vital Signs Temp 98.2 F 05/26/23 04:39 Pulse 76 05/26/23 07:55 Resp 21 05/26/23 05:00 BP 98/67 05/26/23 04:39 Pulse Ox 98 05/26/23 08:17 O2 Del Method Room Air 05/26/23 08:17 Results Labs Labs: Short CBC 05/25/23 05/26/23 Range/Units 12:30 04:35 WBC 11.6 H 9.0 (4.0-11.0) 10^3/uL Hgb 11.8 L 10.1 L (14.0-18.0) g/dL Hct 36.7 L 30.4 L (42.0-54.0) % Plt Count 229 201 (150-450) 10^3/uL BMP 05/25/23 05/26/23 12:30 04:35 Sodium 134 L 139 Potassium 3.8 4.1 Chloride 104 105 Carbon Dioxide 23.2 24.8 BUN 11.0 12.0 Creatinine 1.03 1.05 Glucose 101 92 Calcium 8.6 7.8 L Liver Function 05/25/23 Range/Units 12:30 Total Bilirubin 0.3 (0.2-1.0) mg/dL AST 16 (15-37) U/L ALT 32 (16-63) U/L Alkaline Phosphatase 89 (46-116) U/L Albumin 3.6 (3.4-5.0) g/dL Assessment and Plan Assessment and Plan (1) Chest pain: Assessment and Plan: patient was admitted to observation and placed in telemetry, no reported events on telemetry. Patient has a history of abnormal EKG approximately two months ago which showed a heart block type II, this time showed some decreased frequency but possible inferior myocardial infarction. continue statin, nitro, higher dose aspirin. Cardiac enzymes including troponins, proBNP, all were within normal limits ?5. Patient denies any active chest pain and reports that the nitroglycerin seemed to help. CTA also reviewed which showed no acute abnormalities. We do not have cardiology services today for consultation and we are not able to perform echocardiogram or stress test over the weekend at [facility]. I discussed with patient and who was also present that given findings of normal cardiac enzymes and patient currently has a event monitor in place that he will have close follow-up with cardiology next week and will need an outpatient nuclear stress test with echocardiogram and possible consideration of heart catheter if abnormal. Patient is to return to the hospital if any symptoms worsen and would have the Emergency Room physician consider transfer to a hospital that has cardiology services available on the weekend. (2) Migraine: Assessment and Plan: patient is currently on Topamax daily, can discuss further outpatient management of his migraine headaches with his family care physician Dr. Guadalupe, maybe trying an injectable. (3) Hypothyroid: Assessment and Plan: continue levothyroxine (4) Hyperlipidemia: Assessment and Plan: cholesterol panel within normal limits 165/99/45/102 , continue atorvastatin (5) Hypertension: Assessment and Plan: blood pressure has remained stable on home metoprolol Plan patient was admitted to observation status he is not expected to stay more than two midnights Lovenox for DVT prophylaxis
[2023-05-26] MEDS: ACETAMINOPHEN 500 MG TABLET 1000 MG PO (12:53)
[2023-05-26] MEDS: PNEUMOCOCCAL 23 VACCINE 25 MCG/0.5 ML SYRINGE SUBQ (12:55)
[2023-05-26] MEDS: FLU VACC QS 23-24(6MS UP)CEL/PF 60 MCG/0.5 ML SYRINGE IM (12:58)
--- NOTE | 2023-05-26 13:20 | PM.DS1 ---
DS: Providers Provider Date of admission: 05/25/23 17:01 Primary care physician: Patrice Guadalupe MD Admitting clinician: Patrice Guadalupe Consults: 05/25/23 16:42 Consult to Cardiology Routine Reason for consultation: cp Has provider been notified: No Attending physician on discharge: Melissa Chandra DS: Diagnosis Discharge Diagnosis (1) Chest pain: (2) Migraine: (3) Hypothyroid: (4) Hyperlipidemia: (5) Hypertension: DS: Summary Hospital Course Hospital Course: patient was admitted to observation and placed in telemetry, no reported events on telemetry. Patient has a history of abnormal EKG approximately two months ago which showed a heart block type II, this time showed some decreased frequency but possible inferior myocardial infarction. continue statin, nitro, higher dose aspirin. Cardiac enzymes including troponins, proBNP, all were within normal limits ?5. Patient denies any active chest pain and reports that the nitroglycerin seemed to help. CTA also reviewed which showed no acute abnormalities. We do not have cardiology services today for consultation and we are not able to perform echocardiogram or stress test over the weekend at [facility]. I discussed with patient and who was also present that given findings of normal cardiac enzymes and patient currently has a event monitor in place that he will have close follow-up with cardiology next week and will need an outpatient nuclear stress test with echocardiogram and possible consideration of heart catheter if abnormal. Patient is to return to the hospital if any symptoms worsen and would have the Emergency Room physician consider transfer to a hospital that has cardiology services available on the weekend if requires re-admission. At the time of discharge patient denies any active chest pain. Status at Discharge Overall status at discharge: patient is back to baseline Time Spent with Patient Time attestation: Total time spent providing and/or coordinating discharge services: Time spent: less than 30 minutes Exam Narrative Exam Narrative: there is no change at the time of discharge exam from the admission H and P dated 05/26/23 Constitutional Vital Signs, click to edit/add: Last Vital Signs Temp 97.7 F 05/26/23 08:00 Pulse 86 05/26/23 12:12 Resp 13 05/26/23 08:41 BP 114/80 05/26/23 08:41 Pulse Ox 98 05/26/23 08:41 O2 Del Method Room Air 05/26/23 08:17 DS: Data Data Completed and Pending Labs on day of discharge: Labs from last 24 hours 05/26/23 05/25/23 05/25/23 04:35 20:55 17:52 WBC 9.0 RBC 2.96 L Hgb 10.1 L Hct 30.4 L MCV 102.7 H MCH 34.1 H MCHC 33.2 RDW 17.3 H Plt Count 201 MPV 9.9 Neut % (Auto) 57.8 Lymph % (Auto) 32.6 [place] % (Auto) 7.4 Eos % (Auto) 0.6 L Baso % (Auto) 0.3 Neut # (Auto) 5.2 Lymph # (Auto) 2.9 [place] # (Auto) 0.7 Eos # (Auto) 0.1 Baso # (Auto) 0.0 Abs Immat Gran (auto) 0.12 H Imm/Tot Granulo (auto) 1.3 H Sodium 139 Potassium 4.1 Chloride 105 Carbon Dioxide 24.8 Anion Gap 13.3 BUN 12.0 Creatinine 1.05 Est GFR ( Amer) >60 Est GFR (Non-Af Amer) >60 BUN/Creatinine Ratio 11.4 Glucose 92 Calcium 7.8 L Magnesium 2.1 Troponin I High Sens 4.3 5.2 NT-Pro-B Natriuret Pep 357.0 05/25/23 14:25 WBC RBC Hgb Hct MCV MCH MCHC RDW Plt Count MPV Neut % (Auto) Lymph % (Auto) [place] % (Auto) Eos % (Auto) Baso % (Auto) Neut # (Auto) Lymph # (Auto) [place] # (Auto) Eos # (Auto) Baso # (Auto) Abs Immat Gran (auto) Imm/Tot Granulo (auto) Sodium Potassium Chloride Carbon Dioxide Anion Gap BUN Creatinine Est GFR ( Amer) Est GFR (Non-Af Amer) BUN/Creatinine Ratio Glucose Calcium Magnesium Troponin I High Sens <4.0 L NT-Pro-B Natriuret Pep Discharge Plan Discharge Disposition: Home, Self-Care Condition: Good Discharge Medications: Continued levothyroxine 100 mcg tablet 200 mcg PO DAILY metoprolol tartrate 50 mg tablet 50 mg PO BIDWM topiramate 100 mg tablet 100 mg PO .qd topiramate 200 mg tablet 200 mg PO .QHS trazodone 100 mg tablet 100 mg PO .QHS atorvastatin 10 mg tablet 10 mg PO .qhs nitroglycerin 0.4 mg tablet, sublingual 0.4 mg sublingual DAILY PRN (Reason: chest pain) tizanidine 4 mg tablet 4 mg PO .qhs aspirin [Aspirin Childrens] 81 mg tablet,chewable 81 mg PO DAILY albuterol 90 mcg/actuation aerosol 90 mcg inhalation DAILY Activity: increase activity as tolerated Diet: advance to your usual diet Forms: Portal Instructions Follow Up Appointments: please call cardiology clinic sunday, will need appt next week, needs stress test/echo, discuss migraine headaches with Dr. Guadalupe
--- NOTE | 2023-05-28 12:30 | CM.NOTE ---
No answer 1st attempt 05/28
--- NOTE | 2023-05-29 15:54 | CM.DCFOLLOWU ---
Person spoke with: Rehan How are you feeling? Not much better How is your pain? None now Did you understand your discharge instructions? Yes Do you have any questions about your discharge instructions? No went to [facility] 05/29/23 for more testing and have appt with cardiology Jul 06 Were you given any prescriptions at discharge? no Were you able to get your prescriptions filled? N/A Do you understand how to take your medications as ordered? yes Do you have any questions about your follow up appointment and do you plan to keep your follow up appointment? Jul 06 with [facility] Is there anything else that you would like to discuss? no Questions/Comments/Concerns/Other:
--- NOTE | 2023-05-31 11:52 | CM.DCFOLLOWU ---
Person spoke with: patient How are you feeling? good How is your pain? none Did you understand your discharge instructions? yes Do you have any questions about your discharge instructions? no Were you given any prescriptions at discharge? n/a Were you able to get your prescriptions filled? n/a Do you understand how to take your medications as ordered? yes Do you have any questions about your follow up appointment and do you plan to keep your follow up appointment? No. I have a cardiology follow up appointment on July [address] Anayeli khan, but I cannot remember the date. Pt. states he recently had an echocardiogram and stress test done at [facility]. Is there anything else that you would like to discuss? no thank you Questions/Comments/Concerns/Other: n/a
== END 2023-05-26 13:50 | disposition home or self-care (01) ==
LOC: ER 16:28 → ICU 17:08
PROVIDERS: Personal Emergency Response Attendant; Admitting Provider Internal Medicine; Emergency Provider Emergency Medicine; PCP Family Medicine; Visit Provider Family Medicine
DX: R07.9 Chest pain, unspecified (principal); G43.909 Migraine, unspecified, not intractable, without status migrainosus; E03.9 Hypothyroidism, unspecified; E78.5 Hyperlipidemia, unspecified; I10 Essential (primary) hypertension; K21.9 Gastro-esophageal reflux disease without esophagitis; J43.9 Emphysema, unspecified; R06.02 Shortness of breath; N40.0 Benign prostatic hyperplasia without lower urinary tract symptoms; Z23 Encounter for immunization; Z87.891 Personal history of nicotine dependence; Z79.899 Other long term (current) drug therapy; Z79.890 Hormone replacement therapy; Z79.82 Long term (current) use of aspirin; Z98.890 Other specified postprocedural states
CPT/HCPCS: 36415; 71046; 71275; 80048; 80053; 83735; 83880; 84484; 85025; 90674; 90732; 93005; 94667; 94761; 96374; 96375; 99285; G0008; G0009; G0378; Q9967

== ENCOUNTER 2023-05-27 13:18 | Emergency (ER) | payer OTHER, MEDICARE, SELFPAY ==
[2023-05-27] VITALS (58 sets, daily range): BP systolic 101–164; BP diastolic 59–96; PULSE 58–104; RESP 12–25; TEMP 37; O2SAT 94–100; BMI 29.0
--- NOTE | 2023-05-27 13:41 | XR_ITS ---
The [address] [address] Patient Name: ELENA TREJO MRN: [id number] date: 1965 Sex: M Assigned Patient Location: ER Current Patient Location: ER Accession/Order Number: [id number] Exam Date: 05/27/2023 13:52 Report Date: 05/27/2023 14:07 At the request of: ION SIMS Procedure: XR chest 1V EXAM: XR chest 1V HISTORY: . syncope, chest pain . COMPARISON: 04/20/2023 TECHNIQUE: Angled view of the chest. FINDINGS: Heart and vascularity are unremarkable. Lungs are free of focal infiltrates. EKG leads overlie the chest. XR/XR chest 1V Impression: No acute heart or lung disease identified. Electronically authenticated by: JULIO CESAR PARKER Date: 05/27/2023 14:07
--- NOTE | 2023-05-27 13:41 | ECG_ITS ---
The [facility] Test Date: 2023-05-27 Pat Name: ELENA TREJO Department: Room: - Gender: Male Doper Operator: : 1965 Requested By: PEE LAKHANI Order Number: [id number] Reading MD: PEE LAKHANI Measurements Intervals [place] Rate: 72 P: 62 [place]: 152 QRS: 46 QRSD: 88 T: 48 QT: 390 QTc: 415 Interpretive Statements 1100 Sinus rhythm 8102 Low QRS voltage in chest leads 9120 atypical ECG Compared to ECG 05/25/2023 12:18:58 Short [place] interval no longer present Myocardial infarct finding no longer present T-wave abnormality no longer present Electronically Signed On 05-28-2023 6:58:20 EST by PEE LAKHANI
--- NOTE | 2023-05-27 13:48 | ED_ITS ---
HPI - General Adult General Chief complaint: Dizziness Stated complaint: CHEST PAIN/ SHORTNESS OF BREATH Time Seen by Provider: 05/27/23 13:20 Source: patient Mode of arrival: ambulance Limitations: no limitations History of Present Illness HPI narrative: Patient has been experiencing dizziness, chest pains and syncopal episodes for about 3 months. He was evaluated at [facility] and found to have thyroid abnormalities, which are currently being treated. He is wearing a holter monitor and is scheduled to get ECHO and stress test tomorrow at [facility]. This afternoon he passed out at his home. He woke and had mid sternal chest pain radiating to the mid back. EMS was called and transported the patient to our ED. The patient had taken nitro and his chest pain is now resolved. He had a 30 second episode of syncope on the way, per EMS. He is now awake and alert and only complains of some residual dizziness and mild headache from the nitro. He had received NS IVF and aspirin by EMS as well. Related Data Home Medications Medication Instructions Recorded Confirmed levothyroxine 100 mcg tablet 200 mcg PO DAILY 12/24/22 05/25/23 metoprolol tartrate 50 mg tablet 50 mg PO BIDWM 12/24/22 05/25/23 topiramate 100 mg tablet 100 mg PO .qd 12/24/22 05/25/23 topiramate 200 mg tablet 200 mg PO .QHS 12/24/22 05/25/23 trazodone 100 mg tablet 100 mg PO .QHS 12/24/22 05/25/23 albuterol 90 mcg/actuation aerosol 90 mcg inhalation DAILY 12/25/22 05/25/23 inhaler aspirin 81 mg chewable tablet 81 mg PO DAILY 12/25/22 05/25/23 (Aspirin Childrens) atorvastatin 10 mg tablet 10 mg PO .qhs 05/25/23 05/25/23 nitroglycerin 0.4 mg sublingual 0.4 mg sublingual DAILY PRN chest 05/25/23 05/25/23 tablet pain tizanidine 4 mg tablet 4 mg PO .qhs 05/25/23 05/25/23 Allergies Allergy/AdvReac Type Severity Reaction Status Date / Time Penicillins Allergy Severe Verified 04/16/23 19:25 strawbery Allergy Uncoded 04/16/23 19:25 [facility] Medical History (Updated 05/27/23 @ 17:59 by Ion Sims) Acid reflux ?K21.9 - Gastro-esophageal reflux disease without esophagitis (ICD-10) Back pain ?M54.9 - Dorsalgia, unspecified (ICD-10) Emphysema of lung ?J43.9 - Emphysema, unspecified (ICD-10) Enlarged prostate ?N40.0 - Benign prostatic hyperplasia without lower urinary tract symptoms (ICD-10) Heartburn ?R12 - Heartburn (ICD-10) Hypothyroid ?E03.9 - Hypothyroidism, unspecified (ICD-10) Neck pain ?M54.2 - Cervicalgia (ICD-10) Numbness and tingling ?R20.0 - Anesthesia of skin (ICD-10) ?R20.2 - Paresthesia of skin (ICD-10) Seizure ?R56.9 - Unspecified convulsions (ICD-10) Upper back pain ?M54.9 - Dorsalgia, unspecified (ICD-10) Surgical History H/O cervical spine surgery ?Z98.890 - Other specified postprocedural states (ICD-10) H/O heart surgery ?Z98.890 - Other specified postprocedural states (ICD-10) H/O lumbosacral spine surgery ?Z98.890 - Other specified postprocedural states (ICD-10) Social History Smoking status: Former smoker Exam Narrative Exam Narrative: Nurses notes and vital signs reviewed and patient is not hypoxic. afebrile General: Well-appearing and in no apparent distress. Skin: Warm, dry, no pallor noted. Head: Normocephalic, atraumatic. Neck: Supple, non-tender. Eye: Pupils are equal, round and EOMI. No scleral icterus. No nystagmus Ears, Nose, Mouth, and Throat: Oral mucosa is moist Cardiovascular: Regular Rate and Rhythm without murmur, gallop or rub. Respiratory: No accessory muscle use or respiratory distress. Lungs are clear to auscultation, no wheezing, rales or rhonchi Musculoskeletal: normal ROM, no calf or popliteal tenderness, no lower extremity edema/swelling GI: Abdomen is soft, non-distended. Normal bowel sounds. No tenderness to palpation. No rebound, guarding, or rigidity noted. Neurological: A&O x4. No cranial nerve dysfunction observed. No truncal ataxia. Moves all extremities. Sensation intact. Psychiatric: Cooperative and interactive. Normal mood and affect. Constitutional Vital Signs, click to edit/add: Last Vital Signs Temp 98.6 F 05/27/23 13:28 Pulse 76 05/27/23 17:33 Resp 18 05/27/23 17:33 BP 118/68 05/27/23 17:33 Pulse Ox 97 05/27/23 17:33 O2 Del Method Room Air 05/27/23 13:28 Course Vital Signs Vital signs: Vital Signs Blood Pressure 107/59 05/27/23 13:24 Temperature 98.6 F 05/27/23 13:28 Pulse Rate 76 05/27/23 17:33 Respiratory Rate 18 05/27/23 17:33 Blood Pressure 118/68 05/27/23 17:33 Pulse Oximetry 97 05/27/23 17:33 Oxygen Delivery Method Room Air 05/27/23 13:28 Medical Decision Making MDM Narrative Medical decision making narrative: Patient was placed on conveyor monitor and EKG obtained. Blood drawn and sent for evaluation. CXR obtained. WBC 13.3. No source of infection identified on history or exam. Unremarkable BMP. Normal troponin. Elevated BNP but exam and CXR do not show signs of central or peripheral failure. I spoke with Dr Chandra about this patient = knows the patient from prior visit. Agrees to admit the patient - observation, ICU - but would like me to get the 2nd troponin resulted before the patient comes upstairs in case it acutely elevates. Patient is agreeable to admission. I spoke again with Dr Chandra and after she talked with Dr Guadalupe it was decided that the patient would be transferred to [facility]. I spoke with Dr Urbina - prosthetics technician plant operations manager - and then spoke with the hospitalist at [facility] who said that he would accept transfer and admission on behalf of Dr Huerta. Patient informed of need to go to [facility] and is agreeable. Repeat troponin also negative. Medical Records Medical records reviewed: Yes I reviewed the patient's medical records Medical records narrative: reviewed previous chart from visit 05/25/23 Lab Data Lab results reviewed: Yes I reviewed the patient's lab results Labs: Lab Results 05/27/23 05/27/23 Range/Units 14:00 15:50 WBC 13.3 H (4.0-11.0) 10^3/uL RBC 3.24 L (4.70-6.10) 10^6/uL Hgb 10.8 L (14.0-18.0) g/dL Hct 33.2 L (42.0-54.0) % MCV 102.5 H (80.0-94.0) fL MCH 33.3 (25.9-34.0) pg MCHC 32.5 (29.9-35.2) g/dL RDW 17.2 H (11.0-15.0) % Plt Count 212 (150-450) 10^3/uL MPV 9.6 (9.5-13.5) fL Neut % (Auto) 76.2 H (43.0-75.0) % Lymph % (Auto) 13.2 L (20.5-60.0) % [place] % (Auto) 8.9 (1.7-12.0) % Eos % (Auto) 0.2 L (0.9-7.0) % Baso % (Auto) 0.2 (0.2-2.0) % Neut # (Auto) 10.2 H (1.4-6.5) 10^3/uL Lymph # (Auto) 1.8 (1.2-3.8) 10^3/uL [place] # (Auto) 1.2 H (0.3-0.8) 10^3/uL Eos # (Auto) 0.0 (0.0-0.7) 10^3/uL Baso # (Auto) 0.0 (0.0-0.1) 10^3/uL Abs Immat Gran (auto) 0.17 H (0.00-0.03) 10^3/uL Imm/Tot Granulo (auto) 1.3 H (0.0-0.5) % Sodium 135 L (136-145) mmol/L Potassium 3.5 (3.5-5.1) mmol/L Chloride 102 (98-107) mmol/L Carbon Dioxide 23.5 (21.0-32.0) mmol/L Anion Gap 13.0 BUN 11.0 (7.0-18.0) mg/dL Creatinine 1.15 (0.70-1.30) mg/dL Est GFR ( Amer) >60 (>=60) Est GFR (Non-Af Amer) >60 (>=60) BUN/Creatinine Ratio 9.6 Glucose 87 (74-106) mg/dL Calcium 8.5 (8.5-10.1) mg/dL Magnesium 1.9 (1.8-2.4) mg/dL Total Bilirubin 0.4 (0.2-1.0) mg/dL AST 20 (15-37) U/L ALT 30 (16-63) U/L Alkaline Phosphatase 94 (46-116) U/L Troponin I High Sens 4.5 4.0 (4.0-76.1) pg/mL NT-Pro-B Natriuret Pep 973.0 H (<=900.0) pg/mL Total Protein 6.7 (6.4-8.2) g/dL Albumin 3.2 L (3.4-5.0) g/dL Globulin 3.5 g/dL Albumin/Globulin Ratio 0.9 Imaging Data Chest x-ray: Radiologist's impression: Patient Name: ELENA TREJO MRN: [facility]:[id number] date: 1965 Sex: M Assigned Patient Location: ER Current Patient Location: Accession/Order Number: [id number] Exam Date: 05/27/2023 13:52 Report Date: 05/27/2023 14:07 At the request of: ION SIMS Procedure: XR chest 1V EXAM: XR chest 1V HISTORY: . syncope, chest pain . COMPARISON: 04/20/2023 TECHNIQUE: Angled view of the chest. FINDINGS: Heart and vascularity are unremarkable. Lungs are free of focal infiltrates. EKG leads overlie the chest. Impression: No acute heart or lung disease identified. Electronically authenticated by: JULIO CESAR PARKER Date: 05/27/2023 14:07 ECG Data Attestation: ?I have reviewed the pertinent ECG results. Interpretation: EKG interpretation: Emergency Department physician interpretation. Normal sinus rhythm at 72bpm. Normal axis, normal intervals and no ST segment elevation or depression. Discharge Plan Discharge Chief Complaint: Dizziness Clinical Impression: Syncope, Chest pain Patient Disposition: Xfer Acute Care Hospital Time of Disposition Decision: 14:55 Discharge Location: [facility]
[2023-05-27 14:07] LABS: Basophils Percent Auto 0.2 % (0.2-2.0); Eosinophils Percent Auto 0.2 % (0.9-7.0); Hematocrit 33.2 % (42.0-54.0); Hemoglobin 10.8 g/dL (14.0-18.0); Immature Granulocytes Abs Auto 0.17 10^3/uL (0.00-0.03); Immature Granulocytes Pct Auto 1.3 % (0.0-0.5); Lymphocytes Absolute Auto 1.8 10^3/uL (1.2-3.8); Lymphocytes Percent Auto 13.2 % (20.5-60.0); Mean Corpuscular HGB Conc 32.5 g/dL (29.9-35.2); Mean Corpuscular Hemoglobin 33.3 pg (25.9-34.0); Mean Corpuscular Volume 102.5 fL (80.0-94.0); Mean Platelet Volume 9.6 fL (9.5-13.5); Monocytes Absolute Auto 1.2 10^3/uL (0.3-0.8); Monocytes Percent Auto 8.9 % (1.7-12.0); Neutrophils Absolute Auto 10.2 10^3/uL (1.4-6.5); Neutrophils Percent Auto 76.2 % (43.0-75.0); Platelet Count 212 10^3/uL (150-450); Red Blood Count 3.24 10^6/uL (4.70-6.10); Red Cell Distribution Width 17.2 % (11.0-15.0); White Blood Count 13.3 10^3/uL (4.0-11.0)
[2023-05-27 14:27] LABS: Alanine Aminotransferase 30 U/L (16-63); Albumin Globulin Ratio 0.9; Albumin Level 3.2 g/dL (3.4-5.0); Alkaline Phosphatase 94 U/L (46-116); Aspartate Amino Transferase 20 U/L (15-37); BUN Creatinine Ratio 9.6; Bilirubin Total 0.4 mg/dL (0.2-1.0); Calcium 8.5 mg/dL (8.5-10.1); Carbon Dioxide 23.5 mmol/L (21.0-32.0); Chloride 102 mmol/L (98-107); Estimated GFR (African America >60 (>=60); Estimated GFR (Non-African Ame >60 (>=60); Globulin 3.5 g/dL; Glucose 87 mg/dL (74-106); Magnesium 1.9 mg/dL (1.8-2.4); Potassium 3.5 mmol/L (3.5-5.1); Sodium 135 mmol/L (136-145); Total Protein 6.7 g/dL (6.4-8.2); Troponin I High Sensitivity 4.5 pg/mL (4.0-76.1)
--- NOTE | 2023-05-27 19:06 | PC.NURSE ---
Report called to [facility] with estimated arrival to their facility at 0. No questions with report. No need for furthur updates.
== END 2023-05-27 21:35 | disposition short-term general hospital (02) ==
PROVIDERS: Emergency Provider Emergency Medicine; PCP Family Medicine
DX: R07.9 Chest pain, unspecified (principal); R55 Syncope and collapse; K21.9 Gastro-esophageal reflux disease without esophagitis; J43.9 Emphysema, unspecified; N40.0 Benign prostatic hyperplasia without lower urinary tract symptoms; E03.9 Hypothyroidism, unspecified; Z98.890 Other specified postprocedural states; Z87.891 Personal history of nicotine dependence; Z79.82 Long term (current) use of aspirin; Z79.899 Other long term (current) drug therapy; Z79.890 Hormone replacement therapy
CPT/HCPCS: 36415; 71045; 80053; 83735; 83880; 84484; 85025; 93005; 99285

== ENCOUNTER 2023-06-21 01:42 | Emergency (ER) | payer OTHER, MEDICARE, SELFPAY ==
[2023-06-21 01:44] VITALS: BP 135/82; PULSE 65; RESP 16; TEMP 36.7; O2SAT 98; BMI 29.0
--- NOTE | 2023-06-21 01:49 | ED_ITS ---
HPI - Extremity Injury (Lower) General Chief Complaint: Extremity Injury, Lower Stated Complaint: groin pain Time Seen by Provider: 06/21/23 01:46 Source: patient Mode of arrival: ambulance Limitations: no limitations History of Present Illness HPI Narrative: The patient was cleaning up dog feces at his home when he slipped and did the splits , stretching the medial and proximal right thigh. This occurred around 830pm. He said that he applied ice to the area and tried to rest but the pain worsened. He did not take anything different for the pain - just his scheduled night meds. He is able to move both legs but it hurt so bad that I called 911 . Related Data Home Medications Medication Instructions Recorded Confirmed levothyroxine 100 mcg tablet 200 mcg PO DAILY 12/24/22 05/25/23 metoprolol tartrate 50 mg tablet 50 mg PO BIDWM 12/24/22 05/25/23 topiramate 100 mg tablet 100 mg PO .qd 12/24/22 05/25/23 topiramate 200 mg tablet 200 mg PO .QHS 12/24/22 05/25/23 trazodone 100 mg tablet 100 mg PO .QHS 12/24/22 05/25/23 albuterol 90 mcg/actuation aerosol 90 mcg inhalation DAILY 12/25/22 05/25/23 inhaler aspirin 81 mg chewable tablet 81 mg PO DAILY 12/25/22 05/25/23 (Aspirin Childrens) atorvastatin 10 mg tablet 10 mg PO .qhs 05/25/23 05/25/23 nitroglycerin 0.4 mg sublingual 0.4 mg sublingual DAILY PRN chest 05/25/23 05/25/23 tablet pain tizanidine 4 mg tablet 4 mg PO .qhs 05/25/23 05/25/23 Previous Rx's Medication Instructions Recorded celecoxib 100 mg capsule (Celebrex) 100 mg PO BID PRN pain #14 caps 06/21/23 methocarbamol 750 mg tablet 750 mg PO Q6H PRN pain #30 tabs 06/21/23 Allergies Allergy/AdvReac Type Severity Reaction Status Date / Time Penicillins Allergy Severe Verified 06/21/23 01:46 strawbery Allergy Uncoded 06/21/23 01:46 [facility] Medical History (Updated 06/21/23 @ 02:22 by Brent Busch) Hypertension ?I10 - Essential (primary) hypertension (ICD-10) Hyperlipidemia ?E78.5 - Hyperlipidemia, unspecified (ICD-10) Migraine ?G43.909 - Migraine, unspecified, not intractable, without status migrainosus (ICD-10) Enlarged prostate ?N40.0 - Benign prostatic hyperplasia without lower urinary tract symptoms (ICD-10) Upper back pain ?M54.9 - Dorsalgia, unspecified (ICD-10) Back pain ?M54.9 - Dorsalgia, unspecified (ICD-10) Neck pain ?M54.2 - Cervicalgia (ICD-10) Seizure ?R56.9 - Unspecified convulsions (ICD-10) Numbness and tingling ?R20.0 - Anesthesia of skin (ICD-10) ?R20.2 - Paresthesia of skin (ICD-10) Heartburn ?R12 - Heartburn (ICD-10) Acid reflux ?K21.9 - Gastro-esophageal reflux disease without esophagitis (ICD-10) Hypothyroid ?E03.9 - Hypothyroidism, unspecified (ICD-10) Emphysema of lung ?J43.9 - Emphysema, unspecified (ICD-10) Surgical History H/O cervical spine surgery ?Z98.890 - Other specified postprocedural states (ICD-10) H/O heart surgery ?Z98.890 - Other specified postprocedural states (ICD-10) H/O lumbosacral spine surgery ?Z98.890 - Other specified postprocedural states (ICD-10) Social History Smoking status: Never smoker Exam Narrative Exam Narrative: Nurses note and vital signs reviewed and patient is not hypoxic. afebrile General: The patient appears well and in no apparent distress. Patient is resting comfortably on cart. GCS = 15. Skin: Warm, dry, no pallor noted. Head: Normocephalic, atraumatic Eyes: PERRLA, EOMI Cardiovascular: Regular Rate and Rhythm Respiratory: Patient is in no distress, no accessory muscle use, lungs are clear to auscultation, no wheezing, rales or rhonchi Musculoskeletal: Soft tissue tenderness to the medial proximal right thigh. No sign of hip fracture or dislocation. Unremarkable right LE exam distal to the proximal thigh - no sign of long bone fracture, no bony tenderness, no LE swelling. Pulses at femoral, DP, PT, and popliteal were 2+ bilaterally. Moves all four extremities in all modalities with 5/5 strength. Neurological: A&O x4, normal equal thermal intelligence analyst strength, normal finger to nose, normal speech, normal coordination, normal motor, normal sensory. Psychiatric: Cooperative Constitutional Vital Signs, click to edit/add: Last Vital Signs Temp 98.0 F 06/21/23 01:44 Pulse 65 06/21/23 01:44 Resp 16 06/21/23 01:44 BP 135/82 06/21/23 01:44 Pulse Ox 98 06/21/23 01:44 O2 Del Method Room Air 06/21/23 01:44 Course Vital Signs Vital signs: Vital Signs Temperature 98.0 F 06/21/23 01:44 Pulse Rate 65 06/21/23 01:44 Respiratory Rate 16 06/21/23 01:44 Blood Pressure 135/82 06/21/23 01:44 Pulse Oximetry 98 06/21/23 01:44 Oxygen Delivery Method Room Air 06/21/23 01:44 Temperature 98.0 F 06/21/23 01:44 Pulse Rate 65 06/21/23 01:44 Respiratory Rate 16 06/21/23 01:44 Blood Pressure 135/82 06/21/23 01:44 Pulse Oximetry 98 06/21/23 01:44 Oxygen Delivery Method Room Air 06/21/23 01:44 MDM - Extremity Injury (Lower) MDM Narrative Medical decision making narrative: Patient's exam are soft tissue - no sign of bony fracture on exam. Patient given IM Toradol and oral robaxin in the ED. Discharged home with prescriptions for celebrex and robaxin. Encouraged to rest, apply heat to the affected area. He was given crutches for support since he was still having pain with attempted ambulation. He can see his PCP for follow up Discharge Plan Discharge Chief Complaint: Extremity Injury, Lower Clinical Impression: Muscle strain of right thigh Patient Disposition: Home, Self-Care Time of Disposition Decision: 01:53 Prescriptions / Home Meds: New methocarbamol 750 mg tablet 750 mg PO Q6H PRN (Reason: pain) Qty: 30 0RF celecoxib [Celebrex] 100 mg capsule 100 mg PO BID PRN (Reason: pain) Qty: 14 0RF No Action levothyroxine 100 mcg tablet 200 mcg PO DAILY metoprolol tartrate 50 mg tablet 50 mg PO BIDWM topiramate 100 mg tablet 100 mg PO .qd topiramate 200 mg tablet 200 mg PO .QHS trazodone 100 mg tablet 100 mg PO .QHS atorvastatin 10 mg tablet 10 mg PO .qhs nitroglycerin 0.4 mg tablet, sublingual 0.4 mg sublingual DAILY PRN (Reason: chest pain) tizanidine 4 mg tablet 4 mg PO .qhs aspirin [Aspirin Childrens] 81 mg tablet,chewable 81 mg PO DAILY albuterol 90 mcg/actuation aerosol 90 mcg inhalation DAILY Instructions: Groin Strain (ED) Stand Alone Forms: Portal Instructions Referrals: Patrice Guadalupe MD [Primary Care Provider] - 1 week
[2023-06-21] MEDS: KETOROLAC TROMETHAMINE 60 MG/2 ML VIAL IM (02:00)
[2023-06-21] MEDS: METHOCARBAMOL 500 MG TABLET 1000 MG PO (02:01)
[2023-06-21 02:41] VITALS: BP 130/88; PULSE 87; RESP 15; O2SAT 98
== END 2023-06-21 02:40 | disposition home or self-care (01) ==
PROVIDERS: Emergency Provider Emergency Medicine; PCP Family Medicine
DX: S76.911A Strain of unspecified muscles, fascia and tendons at thigh level, right thigh, initial encounter (principal); W01.0XXA Fall on same level from slipping, tripping and stumbling without subsequent striking against object, initial encounter; Z79.82 Long term (current) use of aspirin; Z79.899 Other long term (current) drug therapy; Z79.890 Hormone replacement therapy; I10 Essential (primary) hypertension; E78.5 Hyperlipidemia, unspecified; N40.0 Benign prostatic hyperplasia without lower urinary tract symptoms; K21.9 Gastro-esophageal reflux disease without esophagitis; E03.9 Hypothyroidism, unspecified; J43.9 Emphysema, unspecified; Z98.890 Other specified postprocedural states
CPT/HCPCS: 96372; 99284

== ENCOUNTER 2023-06-29 09:54 | Outpatient (OUT) | payer OTHER, MEDICARE, SELFPAY ==
--- NOTE | 2023-06-29 10:03 | US_ITS ---
[place] [id number] Patient Name: ELENA TREJO MRN: [id number] date: 1965 Sex: M Assigned Patient Location: RAD Current Patient Location: RAD Accession/Order Number: [id number] Exam Date: 06/29/2023 10:05 Report Date: 06/29/2023 11:38 At the request of: PEE LAKHANI Procedure: US venous doppler LE RT EXAMINATION: US venous doppler LE RT HISTORY: GROIN STRAIN S76.219A COMPARISON: No relevant comparison available. TECHNIQUE: Grayscale, color and Doppler FINDINGS: Region: Right leg Thrombus: None Flow: Normal Augmentation: Normal Compressibility: Normal US/US venous doppler LE RT IMPRESSION: No deep or superficial vein thrombus identified in the right leg *Exam performed in accordance with [facility] practice guidelines- Peripheral venous ultrasound, October 09, 2009. Electronically authenticated by: JULIO CESAR SINGLETON Date: 06/29/2023 11:38
== END 2023-06-29 09:55 | disposition home or self-care (01) ==
LOC: RAD 09:55
PROVIDERS: PCP Family Medicine; Visit Provider Family Medicine
DX: S76.219A Strain of adductor muscle, fascia and tendon of unspecified thigh, initial encounter (principal)
CPT/HCPCS: 93971

== ENCOUNTER 2023-07-03 09:43 | Outpatient (OUT) | payer OTHER, MEDICARE, SELFPAY | END 2023-07-03 09:44 | disposition home or self-care (01) | LOC: SLEEP 09:43 | PROVIDERS: PCP Family Medicine; Visit Provider Family Medicine | DX: G47.33 Obstructive sleep apnea (adult) (pediatric) (principal); R06.83 Snoring; R56.9 Unspecified convulsions; J44.1 Chronic obstructive pulmonary disease with (acute) exacerbation; R51.9 Headache, unspecified; R53.83 Other fatigue | CPT/HCPCS: 95806 ==

== ENCOUNTER 2023-07-21 11:50 | Observation (INO) | payer OTHER, MEDICARE, SELFPAY ==
[2023-07-21] VITALS (27 sets, daily range): BP systolic 106–141; BP diastolic 75–93; PULSE 61–103; RESP 9–25; TEMP 36.8–37.1; O2SAT 93–99; BMI 29.1; BMI 28.9
--- OUTSIDE RECORDS SUMMARY | 2023-07-21 11:58 | XMS_ITS | CCD ---
Author Name Unknown Address [id number] [place] [address] Organization [facility] Care Team Providers Care Pole Classifier Name Role Phone LESVIA ., DR GLSAGOW Attending Unavailable HOY ., DR GLASGOW Primary Care Unavailable HOY ., DR GLASGOW Admitting Unavailable PAY ., DR SAMUEL Admitting Unavailable PAY ., DR SAMUEL Attending Unavailable HOY ., DR GLASGOW Primary Care Unavailable HOY ., DR GLASGOW Consulting Unavailable RALPH ., GISSELLE MEZA Consulting UnavailJULIO CESAR Guadarrama Consulting Unavailable HOY ., DR GLASGOW Attending Unavailable HOY ., DR GLASGOW Primary Care Unavailable DANNA, DR ANA Vernon Consulting Unavailable HOY ., DR GLASGOW Admshobha Unavailable HOY ., DR GLASGOW Consulting Unavailable JANKI STEEL Consulting Unavailable HOY ., DR GLASGOW Primary Care Unavailable SCARLET, DR SHIVA Love Consulting Unavailabl e REINECK, DR SHIVA Love Attending Unavailabl e SCARLET, DR SHIVA Love Admitting UnavailJULIO CESAR Elliott Consulting Unavailable PAY ., DR SAMUEL Consulting Unavailable PAY ., DR SAMUEL Attending Unavailable HOY ., DR GLASGOW Primary Care Unavailable PAY ., DR SAMUEL Admitting Unavailable HOY ., DR GLASGOW Primary Care Unavailable SCARLET, DR SHIVA Love Consulting Unavailabl e REINANIYA, DR SHIVA Love Attending Unavailabl e SCARLET, DR SHIVA Love Admitting Unavailabl e SHEILA, DR SHEN Vernon Consulting Unavailable HOY ., DR GLASGOW Attending Unavailable HOY ., DR GLASGOW Primary Care Unavailable HOY ., DR GLASGOW Consulting Unavailable HOY ., DR GLASGOW Admshobha Unavailable HAY ., DR LEMON Consulting Unavailable GARETH ROMERO Consulting Unavailable HOY ., DR GLASGOW Attending Unavailable HOY ., DR GLASGOW Admshobha Unavailable HOY ., DR GLASGOW Primary Care Unavailable HOY ., DR GLASGOW Primary Care Unavailable HOY ., DR GLASGOW Attending Unavailable HOY ., DR GLASGOW Admitting Unavailable HOY ., DR GLASGOW Primary Care Unavailable HOY ., DR GLASGOW Attending Unavailable HOY ., DR GLASGOW Admitting Unavailable HOY ., DR GLASGOW Attending Unavailable HOY ., DR GLASGOW Admitting Unavailable HOY ., DR GLASGOW Primary Care Unavailable HOY ., DR GLASGOW Attending Unavailable HOY ., DR GLASGOW Primary Care Unavailable HOY ., DR GLASGOW Consulting Unavailable HOY ., DR GLASGOW Admitting Unavailable HOY ., DR GLASGOW Attending Unavailable HOY ., DR GLASGOW Primary Care Unavailable HOY ., DR GLASGOW Consulting Unavailable HOY ., DR GLASGOW Admitting Unavailable HOY ., DR GLASGOW Consulting Unavailable HOY ., DR GLASGOW Attending Unavailable HOY ., DR GLASGOW Admitting Unavailable HOY ., DR GLASGOW Primary Care Unavailable ZIEBER, DR SHEN Vernon Consulting Unavailable HOY ., DR GLASGOW Primary Care Unavailable HOY ., DR GLASGOW Consulting Unavailable HOY ., DR GLASGOW Attending Unavailable HOY ., DR GLASGOW Admitting Unavailable ZIEBER, DR SHEN Vernon Consulting Unavailable JOHN ., LISSETTE Consulting Unavailable Dejan CARD, Hernandez Thomas Attending Unavailable Dejan CARD, Hernandez Thomas Attending Unavailable THONG GABRIEL Referring Unavailable THONG GABRIEL Referring Unavailable GÉNESIS CHASE Attending Unavailable DOUG, STEVEN Referring Unavailable DOUG, STEVEN Referring Unavailable MERZA, NOORALDIN Referring Unavailable HAY, ION Referring Unavailable ZACKARY, SARMED Admitting Unavailable LIDIA PASCUAL Attending Unavailab le MERZA, NOORALDIN Referring Unavailable DOUG, STEVEN Admitting Unavailable MERZA, NOORALDIN Referring Unavailable HORSAUNDRA MONDRAGONAR Attending Unavailable MERZA, NOORALDIN Referring Unavailable ZACKARY, SARMED Referring Unavailable ELMA, THONG Referring Unavailable GANGMILONILIDIA Referring Unavailab GÉNESIS Leonardo Attending Unavailable Allergies Allergy Classification Reported Allergen(s) Allergy Type Date of Onset Reaction(s) Facility (2 sources) Penicillins; Translations: [PENICILLINS] Drug allergy (disorder) 05-30-2015 [facility] Repository (2 sources) strawberry allergenic extract; Translations: [STRAWBERRY] Drug Allergy 05-13-2016 [facility] Repository Problems Active Problems Problem Classification Problem Date Documented Date Episodic/Chronic Acute and unspecified renal failure (1 source) Acute kidney failure, unspecified; Translations: [ACUTE KIDNEY FAILURE UNSPECIFIED] Onset: 12-04-2022 Episodic Acute myocardial infarction (2 sources) Non-ST elevation (NSTEMI) myocardial infarction; Translations: [Non-ST elevation (NSTEMI) myocardial infarction] Onset: 05-28-2023 Chronic Alcohol-related disorders (1 source) Alcohol dependence, uncomplicated; Translations: [ALCOHOL DEPENDENCE UNCOMPLICATED] Onset: 10-31-2022 Chronic Cardiac dysrhythmias (1 source) Bradycardia, unspecified; Translations: [BRADYCARDIA UNSPECIFIED] Onset: 12-04-2022 Episodic Chronic obstructive pulmonary disease and bronchiectasis (1 source) Emphysema, unspecified; Translations: [EMPHYSEMA UNSPECIFIED] Onset: 12-04-2022 Chronic Conduction disorders (2 sources) Atrioventricular block, second degree; Translations: [Atrioventricular block, second degree] Onset: 04-20-2023 Chronic Congestive heart failure; nonhypertensive (1 source) Unspecified diastolic (congestive) heart failure; Translations: [UNSPECIFIED DIASTOLIC HEART FAILURE] Onset: 04-19-2022 Chronic Diseases of white blood cells (1 source) Elevated white blood cell count, unspecified; Translations: [ELEVATED WHITE BLOOD CELL COUNT UNS] Onset: 04-18-2022 Chronic Disorders of lipid metabolism (2 sources) Mixed hyperlipidemia; Translations: [Mixed hyperlipidemia] Onset: 04-20-2023 Chronic E Codes: Fall (1 source) Unspecified fall, initial encounter; Translations: [UNSPECIFIED FALL INITIAL ENCOUNTER] Onset: 12-04-2022 Episodic Epilepsy; convulsions (1 source) Epilepsy, unspecified, not intractable, without status epilepticus; Translations: [EPILEPSY UNS NOT INTRACT W/O SE] Onset: 12-04-2022 Chronic Essential hypertension (1 source) Essential (primary) hypertension; Translations: [ESSENTIAL PRIMARY HYPERTENSION] Onset: 12-04-2022 Chronic Fluid and electrolyte disorders (4 sources) Hypo-osmolality and hyponatremia; Translations: [Dehydration] Onset: 04-18-2022 Episodic Headache; including migraine (1 source) Headache; including migraine; Translations: [HEADACHE UNSPECIFIED] Onset: 04-05-2022 Hypertension with complications and secondary hypertension (3 sources) Hypertensive heart disease with heart failure; Translations: [Secondary hypertension, unspecified] Onset: 04-19-2022 Chronic Intracranial injury (1 source) Other specified intracranial injury with loss of consciousness of 30 minutes or less, initial encounter; Translations: [OTH SPECIFIED ICI LOC 30 MIN/< INIT] Onset: 12-04-2022 Episodic Malaise and fatigue (4 sources) Weakness; Translations: [WEAKNESS] Onset: 04-18-2022 Episodic Menopausal disorders (1 source) Hormone replacement therapy; Translations: [HORMONE REPLACEMENT THERAPY] Onset: 12-04-2022 Episodic Nonspecific chest pain (7 sources) Chest pain, unspecified; Translations: [Other chest pain] Onset: 03-27-2022 Episodic Osteoarthritis (1 source) Unilateral primary osteoarthritis, left hip; Translations: [UNI PRIM OSTEOARTHRITIS LT HIP] Onset: 10-29-2022 Chronic Other aftercare (1 source) Other assisted (current) drug therapy; Translations: [OTH EDI ARCHITECT CURRENT DRUG THERAPY] Onset: 12-04-2022 Episodic Other connective tissue disease (1 source) Arthrodesis status; Translations: [ARTHRODESIS STATUS] Onset: 12-04-2022 Episodic Other connective tissue disease (2 sources) Fibromyalgia; Translations: [Fibromyalgia] Onset: 04-20-2023 Episodic Other endocrine disorders (2 sources) Unspecified adrenocortical insufficiency; Translations: [Unspecified adrenocortical insufficiency] Onset: 04-20-2023 Chronic Other nervous system disorders (1 source) Other chronic pain; Translations: [OTHER CHRONIC PAIN] Onset: 10-31-2022 Chronic Pneumonia (except that caused by tuberculosis or sexually transmitted disease) (1 source) Pneumonia (except that caused by tuberculosis or sexually transmitted disease); Translations: [PNEUMONIA D/T CORONAVIRUS DIS 2019] Onset: 04-05-2022 Screening and history of mental health and substance abuse codes (1 source) Personal history of nicotine dependence; Translations: [PERSONAL HISTORY OF NICOTINE DEPEND] Onset: 12-04-2022 Episodic Spondylosis; intervertebral disc disorders; other back problems (4 sources) Other intervertebral disc displacement, lumbar region; Translations: [OTH IV DISC DISPLACEMENT LUMBAR RGN] Onset: 11-24-2022 Chronic Spondylosis; intervertebral disc disorders; other back problems (6 sources) Radiculopathy, lumbosacral region; Translations: [Radiculopathy, cervical region] Onset: 10-23-2022 Episodic Sprains and strains (1 source) Sprain of unspecified ligament of left ankle, initial encounter; Translations: [SPRAIN UNS LIGAMENT LT ANKLE INIT] Onset: 12-04-2022 Episodic Substance-related disorders (1 source) Nicotine dependence, cigarettes, uncomplicated; Translations: [NICOTINE DEPEND CIGARETTES UNCOMP] Onset: 10-31-2022 Chronic Syncope (2 sources) Syncope and collapse; Translations: [Syncope and collapse] Onset: 04-20-2023 Episodic Thyroid disorders (4 sources) Hypothyroidism, unspecified; Translations: [HYPOTHYROIDISM UNSPECIFIED] Onset: 10-31-2022 Chronic Unclassified (3 sources) CONTACT W/AND (SUSP) EXPOS COVID-19; Translations: [CONTACT W/AND (SUSP) EXPOS COVID-19] Onset: 03-21-2022 Unclassified (3 sources) LOW BACK PAIN, UNSPECIFIED; Translations: [LOW BACK PAIN, UNSPECIFIED] Onset: 10-31-2022 Unclassified (1 source) PERSONAL HISTORY OF COVID-19; Translations: [PERSONAL HISTORY OF COVID-19] Onset: 04-05-2022 Unclassified (2 sources) COUGH, UNSPECIFIED; Translations: [COUGH, UNSPECIFIED] Onset: 03-27-2022 Viral infection (3 sources) COVID-19; Translations: [Disease caused by 2019-nCoV] Onset: 03-27-2022 Past or Other Problems Problem Classification Problem Date Documented Da te Episodic/Chronic Abdominal pain (1 source) Epigastric pain; Translations: [EPIGASTRIC PAIN] Onset: 01-26-2022 Episodic Bacterial infection; unspecified site (3 sources) Methicillin resistant Staphylococcus aureus infection as the cause of diseases classified elsewhere; Translations: [Methicillin susceptible Staphylococcus aureus infection as the cause of diseases classified elsewhere] Onset: 04-05-2022 Episodic Chronic obstructive pulmonary disease and bronchiectasis (2 sources) Bronchitis, not specified as acute or chronic; Translations: [BRONCHITIS NOT SPEC ACUTE/CHRON] Onset: 04-05-2022 Episodic Deficiency and other anemia (1 source) Anemia, unspecified; Translations: [ANEMIA UNSPECIFIED] Onset: 04-19-2022 Episodic Mycoses (1 source) Other specified mycoses; Translations: [OTHER SPECIFIED MYCOSES] Onset: 04-05-2022 Episodic Other connective tissue disease (1 source) Myalgia, unspecified site; Translations: [MYALGIA UNSPECIFIED SITE] Onset: 04-18-2022 Episodic Other gastrointestinal disorders (1 source) Dysphagia, unspecified; Translations: [DYSPHAGIA UNSPECIFIED] Onset: 04-19-2022 Episodic Other lower respiratory disease (1 source) Shortness of breath; Translations: [SHORTNESS OF BREATH] Onset: 04-05-2022 Episodic Other screening for suspected conditions (not mental disorders or infectious disease) (1 source) Other specified abnormal findings of blood chemistry; Translations: [OTH SPEC ABNORMAL FINDINGS BLD CHEM] Onset: 04-18-2022 Episodic Pneumonia (except that caused by tuberculosis or sexually transmitted disease) (4 sources) Pneumonia, unspecified organism; Translations: [PNEUMONIA UNSPECIFIED ORGANISM] Onset: 04-15-2022 Episodic Unclassified (1 source) LOW BACK PAIN, UNSPECIFIED; Translations: [LOW BACK PAIN, UNSPECIFIED] Onset: 10-27-2022 Unclassified (1 source) COUGH, UNSPECIFIED; Translations: [COUGH, UNSPECIFIED] Onset: 03-23-2022 Unclassified (1 source) CONTACT W/AND (SUSP) EXPOS COVID-19; Translations: [CONTACT W/AND (SUSP) EXPOS COVID-19] Onset: 03-17-2022 Results Test Name Value Interpretation Reference Range Facility 30on 05-28-2023 30 The patient is Moderately Stable - Low risk of patient condition declining or worsening The patient's goals for the shift include comfort The clinical goals for the shift include VSS Pt denies pain at present and appears to be asleep. CT head and CXR showed no acute processes. Aware of limits and calls for assist approp. Normal [facility] 30 The patient is Moderately Stable - Low risk of patient condition declining or worsening The patient's goals for the shift include comfort The clinical goals for the shift include VSS Normal [facility] APTTon 05-28-2023 ACTIVATED PARTIAL THROMBOPLASTIN TIME IN PPP BY COAGULATION ASSAY 33.8 Seconds Normal 25.0-35.0 [facility] Comment on above: Result Comment: Clin ical significance of the APTT is questionable in the presence of heparin. Performed By: #### L [id number] #### [facility] ([facility]) [address] [place] [address] B-TYPE NATRIURETIC PEPTIDEon 05-28-2023 Natriuretic peptide B (Bld) [Mass/Vol] 76 pg/mL Normal 0-100 [facility] Comment on above: Performed By: #### L [id number] #### [facility] ([facility]) [address] [place] [address] BLOOD CULTUREon 05-28-2023 Bacteria identified Cx Nom (Bld) No growth at 5 days Normal [facility] Comment on above: Performed By: #### L [id number] #### [facility] ([facility]) [address] [place] [address] Order Comment: From a different site than #1. Performed By: #### L [id number] #### [facility] ([facility]) [address] [place] [address] CBC WITH AUTO DIFFERENTIALon 05-28-2023 Basophils (Bld) [#/Vol] 0.05 10*3/uL Normal 0.00-0.20 [facility] Comment on above: Performed By: #### L [id number] #### [facility] ([facility]) [address] [place] [place] [address] Basophils/100 WBC (Bld) 0.4 % Normal 0.0-1.0 [facility] Comment on above: Performed By: #### L [id number] #### [facility] ([facility]) [address] [address] Eosinophils (Bld) [#/Vol] 0.02 10*3/uL Normal 0.00-0.50 [facility] Comment on above: Performed By: #### L [id number] #### [facility] ([facility]) [address] [address] Eosinophils/100 WBC (Bld) 0.1 % Normal 0.0-6.0 [facility] Comment on above: Performed By: #### L [id number] #### [facility] ([facility]) [address] [place] [address] Erythrocyte distribution width (RBC) [Ratio] 17.5 % High 11.5-15.0 [facility] Comment on above: Performed By: #### L [id number] #### [facility] ([facility]) [address] [place] [address] ERYTHROCYTE MEAN CORPUSCULAR HEMOGLOBIN CONCENTRATION (G/DL) BY AUTOMATED 33.7 g/dL Normal 32.0-35.0 [facility] Comment on above: Performed By: #### L [id number] #### [facility] ([facility]) [address] [place] [address] Hematocrit (Bld) [Volume fraction] 34.4 % Low 39.0-55.0 [facility] Comment on above: Performed By: #### L [id number] #### [facility] ([facility]) [address] [place] [address] Hemoglobin (Bld) [Mass/Vol] 11.6 g/dL Low 13.0-17.0 [facility] Comment on above: Performed By: #### L [id number] #### [facility] ([facility]) [address] [place] [address] Immature granulocytes (Bld) [#/Vol] 0.16 10*3/uL Normal 0.00-0.20 [facility] Comment on above: Performed By: #### L [id number] #### [facility] ([facility]) [address] [place] [address] Immature granulocytes/100 WBC (Bld) 1.1 % High 0.0-1.0 [facility] Comment on above: Performed By: #### L [id number] #### [facility] ([facility]) [address] [place] [address] Lymphocytes (Bld) [#/Vol] 2.52 10*3/uL Normal 1.20-4.00 [facility] Comment on above: Performed By: #### L [id number] #### [facility] ([facility]) [address] [place] [address] Lymphocytes/100 WBC (Bld) 17.9 % Low 20.0-45.0 [facility] Comment on above: Performed By: #### L [id number] #### [facility] ([facility]) [address] [place] [address] MCH (RBC) [Entitic mass] 33.7 pg High 27.0-33.0 [facility] Comment on above: Performed By: #### L [id number] #### [facility] ([facility]) [address] [place] [address] MCV (RBC) [Entitic vol] 100.0 fL High 82.0-98.0 [facility] Comment on above: Performed By: #### L [id number] #### [facility] [address] [place] [address] Monocytes (Bld) [#/Vol] 1.27 10*3/uL High 0.10-1.00 [facility] Comment on above: Performed By: #### L [id number] #### [facility] ([facility]) [address] [place] [address] Monocytes/100 WBC (Bld) 9.0 % Normal 5.0-12.0 [facility] Comment on above: Performed By: #### L [id number] #### [facility] ([facility]) [address] [place] [address] Neutrophils (Bld) [#/Vol] 10.03 10*3/uL High 1.60-7.60 [facility] Comment on above: Performed By: #### L [id number] #### [facility] ([facility]) [address] [place] [address] Neutrophils/100 WBC (Bld) 71.5 % Normal 40.0-72.0 [facility] Comment on above: Performed By: #### L [id number] #### [facility] ([facility]) [address] [place] [address] NRBC (PER 100 WBCS) BY AUTOMATED COUNT 0.0 % Normal 0 [facility] Comment on above: Performed By: #### L [id number] #### [facility] ([facility]) [address] [place] [address] PLATELETS (10*3/UL) IN BLOOD AUTOMATED COUNT 232 10*3/uL Normal 150-400 [facility] Comment on above: Performed By: #### L [id number] #### [facility] ([facility]) [address] [place] [address] RBC (Bld) [#/Vol] 3.44 10*6/uL Low 4.20-5.70 [facility] Comment on above: Performed By: #### L [id number] #### [facility] ([facility]) [address] [place] [address] WBC (Bld) [#/Vol] 14.05 10*3/uL High 4.00-10.60 [facility] Comment on above: Performed By: #### L [id number] #### [facility] ([facility]) [address] [place] [address] COMPREHENSIVE METABOLIC PANE Dawit 05-28-2023 Albumin [Mass/Vol] 4.2 g/dL Normal 3.5-5.7 [facility] Comment on above: Performed By: #### L [id number] #### [facility] [address] [place] [address] ALP [Catalytic activity/Vol] 95 U/L Normal 34-104 [facility] Comment on above: Performed By: #### L [id number] #### [facility] [address] [place] [address] ALT [Catalytic activity/Vol] 18 U/L Normal 7-52 [facility] Comment on above: Performed By: #### L [id number] #### [facility] ([facility]) [address] [place] [address] Anion gap [Moles/Vol] 12 mmol/L Normal 7-20 [facility] Comment on above: Performed By: #### L [id number] #### [facility] ([facility]) [address] [place] [address] AST [Catalytic activity/Vol] 12 U/L Low 13-39 [facility] Comment on above: Performed By: #### L [id number] #### [facility] ([facility]) [address] [place] [address] Bilirubin [Mass/Vol] 0.4 mg/dL Normal 0.3-1.0 [facility] Comment on above: Performed By: #### L [id number] #### [facility] [address] [place] [address] Calcium [Mass/Vol] 9.3 mg/dL Normal 8.6-10.3 [facility] Comment on above: Performed By: #### L [id number] #### [facility] [address] [place] [address] Chloride [Moles/Vol] 106 mmol/L Normal 98-107 [facility] Comment on above: Performed By: #### L [id number] #### [facility] [address] [place] [address] CO2 [Moles/Vol] 19 mmol/L Low 21-31 [facility] Comment on above: Performed By: #### L [id number] #### [facility] [address] [place] [address] Creatinine [Mass/Vol] 0.82 mg/dL Normal 0.70-1.30 [facility] Comment on above: Performed By: #### L [id number] #### [facility] [address] [place] [address] GLOMERULAR FILTRATION RATE ML/MIN/1.73 SQ M.PREDICTED 101.8 mL/min/1.73m*2 Normal >60.0 [facility] Comment on above: Result Comment: The [facility]???s estimated glomerular filtration rate (eGFR) will no longer include consideration of race in its calculation. The [employer]???s eGFR Task Force developed new recommendations for the estimation of the glomerular filtration rate in the [place] They recommend immediate implementation of the new equation refit without the race variable in all laboratories because the calculation does not include race. In addition to not including race in the calculation and reporting, it included diversity in its development, and has acceptable performance characteristics and potential consequences that do not disproportionately affect any one group of individuals. Performed By: #### L [id number] #### [facility] ([facility]) [address] [place] [address] Glucose [Mass/Vol] 96 mg/dL Normal 70-100 [facility] Comment on above: Performed By: #### L [id number] #### [facility] ([facility]) [address] [place] [address] Potassium [Moles/Vol] 3.5 mmol/L Normal 3.5-5.1 [facility] Comment on above: Performed By: #### L [id number] #### [facility] ([facility]) [address] [place] [address] Protein [Mass/Vol] 6.9 g/dL Normal 6.0-8.3 [facility] Comment on above: Performed By: #### L [id number] #### [facility] ([facility]) [address] [place] [address] Sodium [Moles/Vol] 133 mmol/L Low 136-145 [facility] Comment on above: Performed By: #### L [id number] #### [facility] ([facility]) [address] [place] [address] Urea nitrogen [Mass/Vol] 10 mg/dL Normal 7-25 [facility] Comment on above: Performed By: #### L [id number] #### [facility] ([facility]) [address] [place] [address] UREA NITROGEN/CREATININE (MASS RATIO) IN SER/PLAS 12.2 Normal [facility] Comment on above: Performed By: #### L [id number] #### [facility] ([place]) [address] [place] [address] CONSULTon 05-28-2023 CONSULT -- Attestation signed by Williams Cabrera MD at 05/28/2023 4:45 PM I personally saw and examined the patient on the same date of service as resident/fellow Blanca Smalls. I discussed the findings and therapeutic plan with the resident/fellow Blnaca Smalls. I agree with the documentation, except for any edits/updates below. Teaching Physician's Revisions: as above Cardiology Consult Note Reason for Consult: Syncope HPI: Rehan Poole is a 58 y.o. male with an established history of present established history of chronic migraine with aura, hypertension, epilepsy with focal seizures, neuropathy, history of PFO, hypothyroidism, possible adrenal insufficiency, hypertension came to the ER with an episode of syncope patient was previously admitted about a month ago for the same complaint. Patient was post to get a Holter monitor but he got that Holter monitor 2 weeks ago at cardiology outpatient clinic. On 05/27/2023 patient was sitting in his lazy chair/massage chair he went to the bathroom came back felt lightheaded dizzy and passed out patient said the whole room was spinning his eyes were spinning he had some mild tinnitus and then he lost his consciousness without hitting anything his was waking up when he regained his consciousness. No chest pain before the lightheadedness or dizziness but patient complains of chest painafterwards it was retrosternal 12/23 patient used sublingual nitrate and came to the ER. Patient is on Holter monitor. In the ER patient labs were unremarkable except for the white count of 14 which could be in the setting of steroid usage? Vitals were stable EKG unremarkable Cardiology ROS: Review of Systems Constitutional: Negative for appetite change, chills and diaphoresis. Respiratory: Negative for cough, choking, chest tightness and shortness of breath. Cardiovascular: Positive for palpitations. Negative for leg swelling. Gastrointestinal: Negative for abdominal pain, constipation, diarrhea and nausea. Endocrine: Negative for heat intolerance, polydipsia and polyphagia. Genitourinary: Negative for dysuria, enuresis and frequency. Musculoskeletal: Negative for back pain, gait problem, joint swelling and myalgias. Skin: Negative for pallor and rash. Neurological: Positive for dizziness, seizures, syncope, weakness, light-headedness, numbness and headaches. Psychiatric/Behavioral : Negative for dysphoric mood and hallucinations. The patient is not nervous/anxious and is not hyperactive. Past Medical History He has no past medical history on file. Surgical History He has no past surgical history on file. Social History He reports that he quit smoking about 2 years ago. His smoking use included cigarettes. He has a 38.00 pack-year smoking history. He quit smokeless tobacco use about 38 years ago. His smokeless tobacco use included chew. No history on file for alcohol use and drug use. Family History No family history on file. Allergies [place] and Penicillins Medications Medications Prior to Admission Medication Sig Dispense Refill Last Dose albuterol 90 mcg/actuation inhaler Inhale 2 puffs every 6 (six) hours if needed for wheezing. aspirin 81 mg EC tablet Take 162 mg by mouth in the morning. atorvastatin (Lipitor) 10 mg tablet Take 1 tablet (10 mg) by mouth at bedtime. 90 tablet 3 dutasteride (Avodart) 0.5 mg capsule Take 0.5 mg by mouth in the morning. fluticasone-umeclidin- vilanter (Trelegy Ellipta) 100-62.5-25 mcg blister with device Inhale 100 mcg in the morning. hydrocortisone (Cortef) 10 mg tablet Take 1 tablet (10 mg) by mouth in the morning AND 0.5 tablets (5 mg) in the morning. 45 tablet 0 levETIRAcetam (Keppra) 750 mg tablet Take 750 mg by mouth in the morning and at bedtime. levothyroxine (Synthroid, Levoxyl) 200 mcg tablet Take 1 tablet (200 mcg) by mouth before breakfast for 95 doses. 90 tablet 0 methocarbamol (Robaxin) 500 mg tablet Take 500 mg by mouth in the morning, at noon, in the evening, and at bedtime. metoprolol tartrate (Lopressor) 25 mg tablet Take 0.5 tablets (12.5 mg) by mouth in the morning and at bedtime. 30 tablet 0 nitroglycerin (Nitrostat) 0.[address] 1 tablet (0.4 mg) under the tongue every 5 (five) minutes if needed for chest pain. May repeat dose every 5 minutes for up to 3 doses total. 100 tablet 11 rimegepant (Nurtec ODT) 75 mg tablet,disintegrating Take 75 mg by mouth in the morning. tamsulosin (Flomax) 0.4 mg 24 hr capsule Take 0.4 mg by mouth in the morning. topiramate (Topamax) 100 mg tablet Take 100 mg by mouth in the morning and at bedtime. 100mg in am 200mg in pm voriconazole (Vfend) 200 mg tablet Take 200 mg by mouth in the morning and at bedtime. Last Recorded Vitals Patient Vitals for the past (more content not included)... Normal [facility] CT HEAD WO IV CONTRASTon CT HEAD WO IV CONTRAST CT HEAD WO IV CONTRAST HISTORY: Syncope, fall. Dizziness COMPARISON: None TECHNIQUE: CT brain without intravenous contrast. Automated exposure control was utilized. All CT scans at this facility use dose modulation, iterative reconstruction, and/or weight based dosing when appropriate to reduce radiation dose to as low as reasonably achievable. FINDINGS: There is no midline shift, mass effect, or acute intracranial hemorrhage. Ventricular system is nondilated. Basal cisterns not effaced. Brain Stem and cerebellum are unremarkable appearing. Bilateral lens replacement. Infratemporal soft tissues demonstrates no acute abnormality. The paranasal sinuses and mastoid air cells are clear. Osseous structures in skull base and calvarium show no acute abnormality. IMPRESSION: *No acute intracranial findings. Approved by:Adelfo DegrootDsksfdjffe97/13/2023 12:47 AM. IAraceli,have reviewed the image(s) and agree with the findings in this report. Electronically signed: Araceli Moseley. Normal [facility] ETHANOLon 05-28-2023 ETHANOL (MG/DL) IN SER/PLAS <10 Normal [facility] Comment on above: Performed By: #### L [id number] #### [facility] ([facility]) [address] [place] [address] ETHANOL CALCULATED (%) Normal [facility] Comment on above: Performed By: #### L [id number] #### [facility] [address] [place] [address] FOLATEon 05-28-2023 FOLATE (NG/ML) IN SER/PLAS 7.00 ng/mL Normal 6.6-1000 [facility] Comment on above: Performed By: #### L [id number] #### [facility] ([facility]) [address] [address] HEMOGLOBIN A1Con 05-28-2023 Glucose [Mass/Vol] 114 mg/dL Normal [facility] Comment on above: Performed By: #### L [id number] #### [facility] [address] [place] [address] HbA1c (Bld) [Mass fraction] 5.6 % Normal 4.0-6.0 [facility] Comment on above: Performed By: #### L [id number] #### [facility] [address] [place] [address] LACTIC ACID WITH 4 HOUR REFL EXon 05-28-2023 LACTATE (MMOL/L) IN SER/PLAS 0.7 mmol/L Normal 0.5-2.2 [facility] Comment on above: Performed By: #### L [id number] #### [facility] ([facility]) [address] [place] [address] LIPID PANELon 05-28-2023 CHOL/HDL 2.7 mg/dL Normal [facility] Comment on above: Performed By: #### L [id number] #### [facility] ([facility]) [address] [place] [address] Cholesterol [Mass/Vol] 115 mg/dL Low 120-200 [facility] Comment on above: Performed By: #### L [id number] #### [facility] ([facility]) [address] [place] [address] Magnesium [Mass/Vol] 72 mg/dL Normal 40-149 [facility] Comment on above: Result Comment: TRIG LYCERIDE REFERENCE RANGE: 20 YEARS AND OLDER CARDIOVASCULAR RISK LESS THAN 150 mg/dL LOW RISK 150 TO 199 mg/dL BORDERLINE RISK 200 mg/dL AND GREATER HIGH RISK Performed By: #### L [id number] #### [facility] ([facility]) [address] [place] [address] Magnesium [Mass/Vol] 58 mg/dL Normal 0-160 [facility] Comment on above: Performed By: #### L [id number] #### [facility] ([facility]) [address] [place] [address] Magnesium [Mass/Vol] 43 mg/dL Normal 23-92 [facility] Comment on above: Performed By: #### L [id number] #### [facility] ([facility]) [address] [place] [address] NON HDL CHOL. (LDL+VLDL) 72 Normal [facility] Comment on above: Performed By: #### L [id number] #### [facility] ([facility]) [address] [place] [address] TOTAL VLDL-C 14 mg/dL Normal 0-40 [facility] Comment on above: Performed By: #### L [id number] #### [facility] ([facility]) [address] [place] [address] MAGNESIUMon 05-28-2023 Magnesium [Mass/Vol] 1.7 mg/dL Low 1.9-2.7 [facility] Comment on above: Performed By: #### L [id number] #### [facility] ([facility]) [address] [place] [address] PHOSPHORUSon 05-28-2023 Magnesium [Mass/Vol] 3.0 mg/dL Normal 2.5-5.0 [facility] Comment on above: Performed By: #### L [id number] #### [facility] ([facility]) [address] [place] [address] POCT GLUCOSE METER UNSOLICIT ED RESULTSon 05-28-2023 Glucose [Mass/Vol] 97 mg/dL Normal 70-105 [facility] Comment on above: Order Comment: Waive d Testing in the ED is performed under the ED CLIA certificate #[id number]. Result Comment: [email or web address] Performed By: #### L [id number] #### [facility] ([facility]) [address] [place] [address] Glucose [Mass/Vol] 101 mg/dL Normal 70-105 [facility] Comment on above: Order Comment: Waive d Testing in the ED is performed under the ED CLIA certificate #[id number]. Result Comment: [email or web address] Performed By: #### L [id number] #### [facility] ([facility]) [address] [place] [address] PROTIME-INRon 05-28-2023 INR IN PPP BY COAGULATION ASSAY 1.01 Normal 0.90-1.10 [facility] Comment on above: Result Comment: ACCC P RECOMMENDED INR FOR WARFARIN THERAPY CONDITION INR PROPHYLAXIS OF VENOUS THROMBOSIS 2-3 (HIGH-RISK SURGERY) TREATMENT OF VENOUS THROMBOSIS 2-3 TREATMENT OF PULMONARY EMBOLISM 2-3 PREVENTION OF SYSTEMIC EMBOLISM: 2-3 ACUTE MYOCARDIAL INFARCTION TISSUE HEART VALVES VALVULAR HEART DISEASE ATRIAL FIBRILLATION RECURRENT SYSTEMIC EMBOLISM MECHANICAL HEART VALVE 2.5-3.5 FROM: ORAL ANTICOAGULANTS. MECHANISM OF ACTION, CLINICAL EFFECTIVENESS, AND OPTIMAL THERAPEUTIC RANGE. CHEST 1995;108:231S-246S. Performed By: #### L [id number] #### [facility] ([facility]) [address] [place] [address] PROTHROMBIN TIME (PT) IN PPP BY COAGULATION ASSAY 13.3 Seconds Normal 12.3-14.8 [facility] Comment on above: Performed By: #### L [id number] #### [facility] ([facility]) [address] [place] [address] T4, FREEon 05-28-2023 THYROXINE (T4) FREE (NG/DL) IN SER/PLAS 1.90 ng/dL High 0.71-1.85 [facility] Comment on above: Performed By: #### L [id number] #### [facility] ([facility]) [address] [place] [address] TOXICOLOGY PANEL URINEon AMPHETAMINE+METHAMPH ETAMINE SCREEN (PRESENCE) IN URINE Negative Normal Negative [facility] Comment on above: Performed By: #### L [id number] #### [facility] ([facility]) [address] [place] [address] BARBITURATES PRESENCE IN URINE BY SCREEN METHOD Negative Normal Negative [facility] Comment on above: Performed By: #### L [id number] #### [facility] ([facility]) [address] [place] [address] Benzodiazepines Ql (U) Negative Normal Negative [facility] Comment on above: Performed By: #### L [id number] #### [facility] ([facility]) [address] [place] [address] CANNABINOID (PRESENCE) IN URINE BY SCREEN METHOD Negative Normal Negative [facility] Comment on above: Performed By: #### L [id number] #### [facility] ([facility]) [address] [place] [address] Cocaine Ql (U) Negative Normal Negative [facility] Comment on above: Performed By: #### L [id number] #### [facility] ([facility]) [address] [place] [address] METHADONE (PRESENCE) IN URINE BY SCREEN METHOD Negative Normal Negative [facility] Comment on above: Performed By: #### L [id number] #### [facility] ([facility]) [address] [place] [address] OPIATES (PRESENCE) IN URINE BY SCREEN METHOD Negative Normal Negative [facility] Comment on above: Performed By: #### L [id number] #### [facility] ([facility]) [address] [place] [address] PHENCYCLIDINE PRESENCE IN URINE BY SCREEN METHOD Negative Normal Negative [facility] Comment on above: Performed By: #### L [id number] #### [facility] ([facility]) [address] [place] [address] Propoxyphene Screen Ql (U) Negative Normal Negative [facility] Comment on above: Performed By: #### L [id number] #### [facility] ([facility]) [address] [place] [address] TRICYCLIC ANTIDEPRESSANTS (PRESENCE) IN URINE Negative Normal Negative [facility] Comment on above: Performed By: #### L [id number] #### [facility] ([facility]) [address] [place] [address] TROPONIN Ion 05-28-2023 Troponin I.cardiac [Mass/Vol] 0.01 ng/mL Normal 0.00-0.04 [facility] Comment on above: Performed By: #### L [id number] #### [facility] ([facility]) [address] [place] [address] Troponin I.cardiac [Mass/Vol] 0.02 ng/mL Normal 0.00-0.04 [facility] Comment on above: Performed By: #### L [id number] #### [facility] ([facility]) [address] [place] [address] Troponin I.cardiac [Mass/Vol] 0.01 ng/mL Normal 0.00-0.04 [facility] Comment on above: Performed By: #### L [id number] #### [facility] ([facility]) [address] [place] [address] TSH3 REFLEX TO FT4on 023 THYROTROPIN (MIU/L) IN SER/PLAS BY DETECTION LIMIT <= 0.05 MIU/L 0.15 mIU/L Low 0.34-5.60 [facility] Comment on above: Performed By: #### L [id number] #### [facility] ([facility]) [address] [place] [address] URINALYSIS WITH REFLEX CULTU REon 05-28-2023 BILIRUBIN, TOTAL PRESENCE IN URINE Negative Normal Negative [facility] Comment on above: Order Comment: Micro scopics not performed on urines with negative chemical reactions unless requested on original order. Performed By: #### L [id number] #### [facility] ([facility]) [address] [place] [address] Clarity (U) Clear Normal Clear [facility] Comment on above: Order Comment: Micro scopics not performed on urines with negative chemical reactions unless requested on original order. Performed By: #### L [id number] #### [facility] ([facility]) [address] [place] [address] Color (U) Yellow Normal Yellow [facility] Comment on above: Order Comment: Micro scopics not performed on urines with negative chemical reactions unless requested on original order. Performed By: #### L [id number] #### [facility] ([facility]) [address] [place] [address] Glucose (U) [Mass/Vol] Negative Normal Negative [facility] Comment on above: Order Comment: Micro scopics not performed on urines with negative chemical reactions unless requested on original order. Performed By: #### L [id number] #### [facility] ([facility]) [address] [place] [address] HEMOGLOBIN PRESENCE IN URINE Negative Normal Negative [facility] Comment on above: Order Comment: Micro scopics not performed on urines with negative chemical reactions unless requested on original order. Performed By: #### L [id number] #### [facility] ([facility]) [address] [place] [address] Ketones Ql (U) Trace Abnormal Negative [facility] Comment on above: Order Comment: Micro scopics not performed on urines with negative chemical reactions unless requested on original order. Performed By: #### L [id number] #### [facility] ([facility]) [address] [place] [address] LEUKOCYTE ESTERASE PRESENCE IN URINE BY TEST STRIP Negative Normal Negative [facility] Comment on above: Order Comment: Micro scopics not performed on urines with negative chemical reactions unless requested on original order. Performed By: #### L [id number] #### [facility] ([facility]) [address] [place] [address] NITRITE PRESENCE IN URINE Negative Normal Negative [facility] Comment on above: Order Comment: Micro scopics not performed on urines with negative chemical reactions unless requested on original order. Performed By: #### L [id number] #### [facility] ([facility]) [address] [place] [address] pH (U) 6.0 [pH] Normal 5.0-8.0 [facility] Comment on above: Order Comment: Micro scopics not performed on urines with negative chemical reactions unless requested on original order. Performed By: #### L [id number] #### [facility] ([facility]) [address] [place] [address] Protein (U) [Mass/Vol] Negative Normal Negative [facility] Comment on above: Order Comment: Micro scopics not performed on urines with negative chemical reactions unless requested on original order. Performed By: #### L [id number] #### [facility] ([facility]) [address] [place] [address] Specific gravity (U) [Rel density] 1.019 Normal 1.015-1.020 [facility] Comment on above: Order Comment: Micro scopics not performed on urines with negative chemical reactions unless requested on original order. Performed By: #### L [id number] #### [facility] ([facility]) [address] [place] [address] UROBILINOGEN (EU/DL) IN URINE 2.0 EU/dL Abnormal Negative [facility] Comment on above: Order Comment: Micro scopics not performed on urines with negative chemical reactions unless requested on original order. Performed By: #### L [id number] #### [facility] ([facility]) [address] [place] [address] VITAMIN B12on 05-28-2023 Cobalamin (Vitamin B12) [Mass/Vol] 119 pg/mL Low 180-914 [facility] Comment on above: Result Comment: REFE RENCE RANGES: 180-914 pg/mL Normal 145-179 pg/mL Indeterminate <145 pg/mL Deficient Performed By: #### L [id number] #### [facility] ([facility]) [address] [place] [address] Office Visiton 05-18-2023 Follow-up visit [id number] Rehan Poole 1965 M Date Provider Department Center 05/18/2023 GÉNESIS SCHERER C[facility] No family history on file Level of Service:32370 [place] OFFICE/OUTPATIENT ESTABLISHED MOD MDM 30-39 MIN Reason for Visit and Comments: Follow-up [505892] Normal [facility] 30on 04-24-2023 30 Problem: Pain - Adul t Goal: Verbalizes/displays adequate comfort level or baseline comfort level Outcome: Progressing Problem: Safety - Adult Goal: Free from fall injury Outcome: Progressing Flowsheets (Taken 04/24/2023899) Free from fall injury: Assess patient frequently for physical needs Problem: Discharge Planning Goal: Discharge to home or other facility with appropriate resources Outcome: Progressing Flowsheets (Taken 04/24/2023899) Discharge to home or other facility with appropriate resources: Identify barriers to discharge with patient and caregiver Problem: Chronic Conditions and Co-morbidities Goal: Patient's chronic conditions and co-morbidity symptoms are monitored and maintained or improved Outcome: Progressing Flowsheets (Taken 04/24/2023899) Care Plan - Patient's Chronic Conditions and Co-Morbidity Symptoms are Monitored and Maintained or Improved: Monitor and assess patient's chronic conditions and comorbid symptoms for stability, deterioration, or improvement Problem: Neurosensory - Adult Goal: Achieves stable or improved neurological status Outcome: Progressing Flowsheets (Taken 04/24/2023899) Achieves stable or improved neurological status: Assess for and report changes in neurological status Goal: Absence of seizures Outcome: Progressing Flowsheets (Taken 04/24/2023899) Absence of seizures: Monitor for seizure activity. If seizure occurs, document type and location of movements and any associated apnea Goal: Remains free of injury related to seizures activity Outcome: Progressing Flowsheets (Taken 04/24/2023899) Remains free of injury related to seizure activity: Maintain airway, patient safety and administer oxygen as ordered Goal: Achieves maximal functionality and self care Outcome: Progressing Flowsheets (Taken 04/24/2023899) Achieves maximal functionality and self care: Monitor swallowing and airway patency with patient fatigue and changes in neurological status Problem: Cardiovascular - Adult Goal: Maintains optimal cardiac output and hemodynamic stability Outcome: Progressing Flowsheets (Taken 04/24/2023899) Maintains optimal cardiac output and hemodynamic stability: Monitor blood pressure and heart rate Goal: Absence of cardiac dysrhythmias or at baseline Outcome: Progressing Flowsheets (Taken 04/24/2023899) Absence of cardiac dysrhythmias or at baseline: Monitor cardiac rate and rhythm Problem: Metabolic/Fluid and Electrolytes - Adult Goal: Electrolytes maintained within normal limits Outcome: Progressing Flowsheets (Taken 04/24/2023899) Electrolytes maintained within normal limits: Monitor labs and assess patient for signs and symptoms of electrolyte imbalances Goal: Hemodynamic stability and optimal renal function maintained Outcome: Progressing Flowsheets (Taken 04/24/2023899) Hemodynamic stability and optimal renal function maintained: Monitor labs and assess for signs and symptoms of volume excess or deficit Goal: Glucose maintained within prescribed range Outcome: Progressing Flowsheets (Taken 04/24/2023899) Glucose maintained within prescribed range: Monitor blood glucose as ordered The patient is Moderately Stable - Low risk of patient condition declining or worsening The patient's goals for the shift include comfort The clinical goals for the shift include VSS Normal [facility] 30 The patient is Moderately Stable - Low risk of patient condition declining or worsening The patient's goals for the shift include comfort The clinical goals for the shift include VSS Over the shift, the patient did make progress toward the following goals. Problem: Pain - Adult Goal: Verbalizes/displays adequate comfort level or baseline comfort level Outcome: Progressing Problem: Safety - Adult Goal: Free from fall injury Outcome: Progressing Problem: Discharge Planning Goal: Discharge to home or other facility with appropriate resources Outcome: Progressing Problem: Chronic Conditions and Co-morbidities Goal: Patient's chronic conditions and co-morbidity symptoms are monitored and maintained or improved Outcome: Progressing Problem: Neurosensory - Adult Goal: Achieves stable or improved neurological status Outcome: Progressing Goal: Absence of seizures Outcome: Progressing Goal: Remains free of injury related to seizures activity Outcome: Progressing Goal: Achieves maximal functionality and self care Outcome: Progressing Problem: Cardiovascular - Adult Goal: Maintains optimal cardiac output and hemodynamic stability Outcome: Progressing Goal: Absence of cardiac dysrhythmias or at baseline Outcome: Progressing Problem: Metabolic/Fluid and Electrolytes - Adult Goal: Electrolytes maintained within normal limits Outcome: Progressing Goal: Hemodynamic stability and optimal renal function maintained Outcome: Progressing Goal: Glucose maintained within prescribed range Outcome: Progressing Normal [facility] BASIC METABOLIC PANELon - Anion gap [Moles/Vol] 12 mmol/L Normal 7-20 [facility] Comment on above: Performed By: #### L [id number] #### [facility] ([facility]) [address] [place] [address] Calcium [Mass/Vol] 9.3 mg/dL Normal 8.6-10.3 [facility] Comment on above: Performed By: #### L [id number] #### [facility] ([facility]) [address] [place] [address] Chloride [Moles/Vol] 106 mmol/L Normal 98-107 [facility] Comment on above: Performed By: #### L [id number] #### [facility] [address] [place] [address] CO2 [Moles/Vol] 21 mmol/L Normal 21-31 [facility] Comment on above: Performed By: #### L [id number] #### [facility] ([facility]) [address] [place] [address] Creatinine [Mass/Vol] 1.20 mg/dL Normal 0.70-1.30 [facility] Comment on above: Performed By: #### L [id number] #### [facility] ([facility]) [address] [place] [address] GLOMERULAR FILTRATION RATE ML/MIN/1.73 SQ M.PREDICTED 70.1 mL/min/1.73m*2 Normal >60.0 [facility] Comment on above: Result Comment: The [facility]???s estimated glomerular filtration rate (eGFR) will no longer include consideration of race in its calculation. The [employer]???s eGFR Task Force developed new recommendations for the estimation of the glomerular filtration rate in the [place] They recommend immediate implementation of the new equation refit without the race variable in all laboratories because the calculation does not include race. In addition to not including race in the calculation and reporting, it included diversity in its development, and has acceptable performance characteristics and potential consequences that do not disproportionately affect any one group of individuals. Performed By: #### L [id number] #### [facility] ([facility]) [address] [place] [address] Glucose [Mass/Vol] 98 mg/dL Normal 70-100 [facility] Comment on above: Performed By: #### L [id number] #### [facility] ([facility]) [address] [place] [address] Potassium [Moles/Vol] 3.8 mmol/L Normal 3.5-5.1 [facility] Comment on above: Performed By: #### L [id number] #### [facility] ([facility]) [address] [place] [address] Sodium [Moles/Vol] 135 mmol/L Low 136-145 [facility] Comment on above: Performed By: #### L [id number] #### [facility] ([facility]) [address] [place] [address] Urea nitrogen [Mass/Vol] 10 mg/dL Normal 7-25 [facility] Comment on above: Performed By: #### L [id number] #### [facility] ([facility]) [address] [place] [address] UREA NITROGEN/CREATININE (MASS RATIO) IN SER/PLAS 8.3 Normal [facility] Comment on above: Performed By: #### L [id number] #### [facility] ([facility]) [address] [place] [address] CBCon 04-24-2023 Erythrocyte distribution width (RBC) [Ratio] 17.1 % High 11.5-15.0 [facility] Comment on above: Performed By: #### L [id number] #### [facility] ([facility]) [address] [place] [address] ERYTHROCYTE MEAN CORPUSCULAR HEMOGLOBIN CONCENTRATION (G/DL) BY AUTOMATED 33.3 g/dL Normal 32.0-35.0 [facility] Comment on above: Performed By: #### L [id number] #### [facility] ([facility]) [address] [place] [address] Hematocrit (Bld) [Volume fraction] 35.1 % Low 39.0-55.0 [facility] Comment on above: Performed By: #### L [id number] #### [facility] ([facility]) [address] [place] [address] Hemoglobin (Bld) [Mass/Vol] 11.7 g/dL Low 13.0-17.0 [facility] Comment on above: Performed By: #### L [id number] #### [facility] ([facility]) [address] [place] [address] MCH (RBC) [Entitic mass] 32.7 pg Normal 27.0-33.0 [facility] Comment on above: Performed By: #### L [id number] #### [facility] ([facility]) [address] [place] [address] MCV (RBC) [Entitic vol] 98.0 fL Normal 82.0-98.0 [facility] Comment on above: Performed By: #### L [id number] #### [facility] ([facility]) [address] [place] [address] PLATELETS (10*3/UL) IN BLOOD AUTOMATED COUNT 216 10*3/uL Normal 150-400 [facility] Comment on above: Performed By: #### L [id number] #### [facility] ([facility]) [address] [place] [address] RBC (Bld) [#/Vol] 3.58 10*6/uL Low 4.20-5.70 [facility] Comment on above: Performed By: #### L [id number] #### [facility] ([facility]) [address] [place] [address] WBC (Bld) [#/Vol] 11.41 10*3/uL High 4.00-10.60 [facility] Comment on above: Performed By: #### L [id number] #### [facility] ([facility]) [address] [place] [address] DSon 04-24-2023 DS Admission Admitted 04/20/2023 for syncope Discharge Diagnosis Syncope Hypothyroidism Concern for adrenal Insufficiency Discharge Disposition Home or Self Care Discharge Medications Your medication list START taking these medications Instructions Last Dose Given Next Dose Due hydrocortisone 10 mg tablet Commonly known as: Cortef Take 1 tablet (10 mg) by mouth in the morning AND 0.5 tablets (5 mg) in the morning. CHANGE how you take these medications Instructions Last Dose Given Next Dose Due levothyroxine 200 mcg tablet Commonly known as: Synthroid, Levoxyl What changed: medication strength how much to take Take 1 tablet (200 mcg) by mouth before breakfast for 95 doses. metoprolol tartrate 25 mg tablet Commonly known as: Lopressor What changed: medication strength how much to take when to take this Take 0.5 tablets (12.5 mg) by mouth in the morning and at bedtime. CONTINUE taking these medications Instructions Last Dose Given Next Dose Due albuterol 90 mcg/actuation inhaler aspirin 81 mg EC tablet dutasteride 0.5 mg capsule Commonly known as: Avodart levETIRAcetam 750 mg tablet Commonly known as: Keppra methocarbamol 500 mg tablet Commonly known as: Robaxin Nurtec ODT 75 mg tablet,disintegrating Generic drug: rimegepant tamsulosin 0.4 mg 24 hr capsule Commonly known as: Flomax topiramate 100 mg tablet Commonly known as: Topamax Trelegy Ellipta 100-62.5-25 mcg blister with device Generic drug: fluticasone-umeclidin- vilanter voriconazole 200 mg tablet Commonly known as: Vfend STOP taking these medications dexAMETHasone 6 mg tablet Commonly known as: Decadron traZODone 100 mg tablet Commonly known as: Desyrel Where to Get Your Medications These medications were sent to [facility] - [place], [place] - [address] [place] [address] [address] [facility] [place] [address], [facility] [address] hydrocortisone 10 mg tablet levothyroxine 200 mcg tablet metoprolol tartrate 25 mg tablet Activity Patient currently has no discharge activity orders Diet Patient currently has no discharge diet orders Allergies [place] and Penicillins Hospital Course Rehan Poole is an 58 y.o. male who came from home with past medical history of hypertension, migraine headaches, seizure, neuropathy, history of PFO presented to [facility] as a transfer Concern for [employer] 2 and need for pacemaker with episodes of syncopal. On arrival to the hospital, patient was noted to have electrolyte normalities including hypokalemia, hyponatremia. First investigative work-up did find his TSH level to be significantly elevated and also was noted to have significantly low cortisol levels and stimulation test with not appropriate response. Patient was initially started on IV levothyroxine and also started on hydrocortisone. Case was discussed with endocrinology at [facility] for potential transfer. Advised to change to oral strictly follow-up with outpatient endocrinology. Patient was discharged on increased dose of levothyroxine to 200 mcg, his beta-blockers were reduced, and patient's hydrocortisone was changed to 10 mg and 5 mg p.m. Patient's ACTH levels were sent and results are pending which will need to be follow-up as an outpatient. patient was discharged on event monitor and outpatient follow-up with her established with cardiology, PCP and endocrinology service. Severe hypothyroidism with sinus bradycardia (now in NSR): Recurrent syncope, likely 2/2 above: Thyroid function is gradually improving. Synthroid increased to 200 mcg which will need repeat TSH and T4 in 4 to 6 weeks. Concern for adrenal insufficiency- Cosyntropin test performed, not done ideally, ACTH is sent and pending to deleniete if primary vs secondary process. Change hydrocortisone 100 every 8 to 10 mg a.m. and 5 mg p.m. outpatient follow-up for endocrine services for ACTH (send out test) and further adrenal imaging. SEKOU resolved AECOPD (mild): Continue doxy for 3 days. Duonebs. Seizure disorder: Continue home antiepileptic regimen. History of PFO History of migraines Pertinent Physical Exam At Time of Discharge Physical Exam Constitutional: Appearance: Normal appearance. HENT: Head: Atraumatic. Mouth/Throat: Pharynx: Oropharynx is clear. Cardiovascular: Rate and Rhythm: Normal rate and regular rhythm. Pulmonary: Breath sounds: Normal breath sounds. Abdominal: Palpations: Abdomen is soft. Musculoskeletal: General: Normal range of motion. Cervical back: Neck supple. Right lower leg: No edema. Left lower leg: No edema. Skin: General: Skin is warm. Neurological: Mental Status: Mental status is at baseline. Psychiatric: Mood and Affect: Mood normal. Lab Results Labs Reviewed COMPREHENSIVE METABOLIC PANEL - Abnormal Result Value Sodium 129 (*) Potassium 3.6 Chloride 96 (*) CO2 19 (more content not included)... Normal [facility] MAGNESIUMon 04-24-2023 Magnesium [Mass/Vol] 1.9 mg/dL Normal 1.9-2.7 [facility] Comment on above: Performed By: #### L [id number] #### [facility] ([facility]) [address] [place] [address] 30on 04-23-2023 30 The patient is Moderately Stable - Low risk of patient condition declining or worsening The patient's goals for the shift include comfort/rest The clinical goals for the shift include VSS Over the shift, the patient did not make progress toward the following goals. Barriers to progression include hypothyroidism. Recommendations to address these barriers include synthroid. Normal [facility] 30 The patient is Moderately Stable - Low risk of patient condition declining or worsening The patient's goals for the shift include comfort/rest The clinical goals for the shift include VSS Problem: Pain - Adult Goal: Verbalizes/displays adequate comfort level or baseline comfort level Outcome: Progressing Flowsheets (Taken 04/22/20232227) Verbalizes/displays adequate comfort level or baseline comfort level: Encourage patient to monitor pain and request assistance Assess pain using appropriate pain scale Administer analgesics based on type and severity of pain and evaluate response Implement non-pharmacological measures as appropriate and evaluate response Consider cultural and social influences on pain and pain management Notify Licensed Independent Practitioner if interventions unsuccessful or patient reports new pain Problem: Safety - Adult Goal: Free from fall injury Outcome: Progressing Flowsheets (Taken 04/22/20232227) Free from fall injury: Assess patient frequently for physical needs Identify cognitive and physical deficits and behaviors that affect risk of falls [place] fall precautions as indicated by assessment Educate patient/family on patient safety, including physical limitations Instruct patient to call for assistance with activity based on assessment Modify environment to reduce risk of injury Consider OT/PT consult to assist with strengthening/mobility Problem: Discharge Planning Goal: Discharge to home or other facility with appropriate resources Outcome: Progressing Flowsheets (Taken 04/22/20232227) Discharge to home or other facility with appropriate resources: Identify barriers to discharge with patient and caregiver Arrange for needed discharge resources and transportation as appropriate Identify discharge learning needs (meds, wound care, etc) Arrange for interpreters to assist at discharge as needed Refer to discharge planning if patient needs post-hospital services based on physician order or complex needs related to functional status, cognitive ability or social support system Problem: Chronic Conditions and Co-morbidities Goal: Patient's chronic conditions and co-morbidity symptoms are monitored and maintained or improved Outcome: Progressing Flowsheets (Taken 04/22/20232227) Care Plan - Patient's Chronic Conditions and Co-Morbidity Symptoms are Monitored and Maintained or Improved: Monitor and assess patient's chronic conditions and comorbid symptoms for stability, deterioration, or improvement Collaborate with multidisciplinary team to address chronic and comorbid conditions and prevent exacerbation or deterioration Update acute care plan with appropriate goals if chronic or comorbid symptoms are exacerbated and prevent overall improvement and discharge Normal [facility] BASIC METABOLIC PANELon 10-0 Anion gap [Moles/Vol] 12 mmol/L Normal -20 [facility] Comment on above: Performed By: #### L [id number] #### [facility] ([facility]) [address] [place] [address] Calcium [Mass/Vol] 9.3 mg/dL Normal 8.6-10.3 [facility] Comment on above: Performed By: #### L [id number] #### [facility] ([facility]) [address] [place] [address] Chloride [Moles/Vol] 104 mmol/L Normal 98-107 [facility] Comment on above: Performed By: #### L [id number] #### [facility] ([facility]) [address] [place] [address] CO2 [Moles/Vol] 18 mmol/L Low 21-31 [facility] Comment on above: Performed By: #### L [id number] #### [facility] ([facility]) [address] [place] [address] Creatinine [Mass/Vol] 1.12 mg/dL Normal 0.70-1.30 [facility] Comment on above: Performed By: #### L [id number] #### [facility] ([facility]) [address] [place] [address] GLOMERULAR FILTRATION RATE ML/MIN/1.73 SQ M.PREDICTED 76.1 mL/min/1.73m*2 Normal >60.0 [facility] Comment on above: Result Comment: The [facility]???s estimated glomerular filtration rate (eGFR) will no longer include consideration of race in its calculation. The National Kidney Foundation???s eGFR Task Force developed new recommendations for the estimation of the glomerular filtration rate in the [place] They recommend immediate implementation of the new equation refit without the race variable in all laboratories because the calculation does not include race. In addition to not including race in the calculation and reporting, it included diversity in its development, and has acceptable performance characteristics and potential consequences that do not disproportionately affect any one group of individuals. Performed By: #### L [id number] #### [facility] ([facility]) [address] [place] [address] Glucose [Mass/Vol] 139 mg/dL High 70-100 [facility] Comment on above: Performed By: #### L [id number] #### [facility] ([facility]) [address] [place] [address] Potassium [Moles/Vol] 4.2 mmol/L Normal 3.5-5.1 [facility] Comment on above: Performed By: #### L [id number] #### [facility] ([facility]) [address] [place] [address] Sodium [Moles/Vol] 130 mmol/L Low 136-145 [facility] Comment on above: Performed By: #### L [id number] #### [facility] [address] [place] [address] Urea nitrogen [Mass/Vol] 11 mg/dL Normal 7-25 [facility] Comment on above: Performed By: #### L [id number] #### [facility] ([facility]) [address] [place] [address] UREA NITROGEN/CREATININE (MASS RATIO) IN SER/PLAS 9.8 Normal [facility] Comment on above: Performed By: #### L [id number] #### [facility] ([facility]) [address] [place] [address] CBCon 04-23-2023 Erythrocyte distribution width (RBC) [Ratio] 17.0 % High 11.5-15.0 [facility] Comment on above: Performed By: #### L [id number] #### [facility] ([facility]) [address] [place] [address] ERYTHROCYTE MEAN CORPUSCULAR HEMOGLOBIN CONCENTRATION (G/DL) BY AUTOMATED 32.7 g/dL Normal 32.0-35.0 [facility] Comment on above: Performed By: #### L [id number] #### [facility] ([facility]) [address] [place] [address] Hematocrit (Bld) [Volume fraction] 40.4 % Normal 39.0-55.0 [facility] Comment on above: Performed By: #### L [id number] #### [facility] [address] [place] [address] Hemoglobin (Bld) [Mass/Vol] 13.2 g/dL Normal 13.0-17.0 [facility] Comment on above: Performed By: #### L [id number] #### [facility] ([facility]) [address] [place] [address] MCH (RBC) [Entitic mass] 32.8 pg Normal 27.0-33.0 [facility] Comment on above: Performed By: #### L [id number] #### [facility] ([facility]) [address] [place] [address] MCV (RBC) [Entitic vol] 100.5 fL High 82.0-98.0 [facility] Comment on above: Performed By: #### L [id number] #### [facility] ([facility]) [address] [place] [address] PLATELETS (10*3/UL) IN BLOOD AUTOMATED COUNT 198 10*3/uL Normal 150-400 [facility] Comment on above: Performed By: #### L [id number] #### [facility] ([facility]) [address] [place] [address] RBC (Bld) [#/Vol] 4.02 10*6/uL Low 4.20-5.70 [facility] Comment on above: Performed By: #### L [id number] #### [facility] ([facility]) [address] [place] [address] WBC (Bld) [#/Vol] 8.96 10*3/uL Normal 4.00-10.60 [facility] Comment on above: Performed By: #### L [id number] #### [facility] ([facility]) [address] [place] [address] MAGNESIUMon 04-23-2023 Magnesium [Mass/Vol] 2.1 mg/dL Normal 1.9-2.7 [facility] Comment on above: Performed By: #### L [id number] #### [facility] ([facility]) [address] [place] [address] T4, FREEon 04-23-2023 THYROXINE (T4) FREE (NG/DL) IN SER/PLAS 0.59 ng/dL Low 0.71-1.85 [facility] Comment on above: Performed By: #### L [id number] #### [facility] ([facility]) [address] [place] [address] TSH3 REFLEX TO FT4on 023 THYROTROPIN (MIU/L) IN SER/PLAS BY DETECTION LIMIT <= 0.05 MIU/L 45.61 mIU/L High 0.34-5.60 [facility] Comment on above: Performed By: #### L [id number] #### [facility] ([facility]) [address] [place] [address] 30on 04-22-2023 30 The patient is Moderately Stable - Low risk of patient condition declining or worsening The patient's goals for the shift include rest The clinical goals for the shift include pain control/safety Problem: Pain - Adult Goal: Verbalizes/displays adequate comfort level or baseline comfort level Outcome: Progressing Problem: Safety - Adult Goal: Free from fall injury Outcome: Progressing Flowsheets (Taken 04/22/2023 1200) Free from fall injury: Assess patient frequently for physical needs Problem: Discharge Planning Goal: Discharge to home or other facility with appropriate resources Outcome: Progressing Flowsheets (Taken 04/22/2023844) Discharge to home or other facility with appropriate resources: Identify barriers to discharge with patient and caregiver Problem: Chronic Conditions and Co-morbidities Goal: Patient's chronic conditions and co-morbidity symptoms are monitored and maintained or improved Outcome: Progressing Flowsheets (Taken 04/22/2023844) Care Plan - Patient's Chronic Conditions and Co-Morbidity Symptoms are Monitored and Maintained or Improved: Monitor and assess patient's chronic conditions and comorbid symptoms for stability, deterioration, or improvement Problem: Neurosensory - Adult Goal: Achieves stable or improved neurological status Outcome: Progressing Flowsheets (Taken 04/22/2023844) Achieves stable or improved neurological status: Assess for and report changes in neurological status Goal: Absence of seizures Outcome: Progressing Flowsheets (Taken 04/22/2023844) Absence of seizures: Monitor for seizure activity. If seizure occurs, document type and location of movements and any associated apnea Goal: Remains free of injury related to seizures activity Outcome: Progressing Flowsheets (Taken 04/22/2023844) Remains free of injury related to seizure activity: Maintain airway, patient safety and administer oxygen as ordered Goal: Achieves maximal functionality and self care Outcome: Progressing Flowsheets (Taken 04/22/2023844) Achieves maximal functionality and self care: Monitor swallowing and airway patency with patient fatigue and changes in neurological status Problem: Cardiovascular - Adult Goal: Maintains optimal cardiac output and hemodynamic stability Outcome: Progressing Flowsheets (Taken 04/22/2023844) Maintains optimal cardiac output and hemodynamic stability: Monitor blood pressure and heart rate Goal: Absence of cardiac dysrhythmias or at baseline Outcome: Progressing Flowsheets (Taken 04/22/2023844) Absence of cardiac dysrhythmias or at baseline: Monitor cardiac rate and rhythm Problem: Metabolic/Fluid and Electrolytes - Adult Goal: Electrolytes maintained within normal limits Outcome: Progressing Flowsheets (Taken 04/22/2023844) Electrolytes maintained within normal limits: Monitor labs and assess patient for signs and symptoms of electrolyte imbalances Goal: Hemodynamic stability and optimal renal function maintained Outcome: Progressing Flowsheets (Taken 04/22/2023844) Hemodynamic stability and optimal renal function maintained: Monitor labs and assess for signs and symptoms of volume excess or deficit Goal: Glucose maintained within prescribed range Outcome: Progressing Flowsheets (Taken 04/22/2023844) Glucose maintained within prescribed range: Monitor blood glucose as ordered Normal [facility] ACTHon 04-22-2023 ACTH (ADRENOCORTICOTROPHI C HORMONE) 7 pg/mL Normal 7-69 [facility] Comment on above: Result Comment: Test Performed by [employer] [address] [place] [id number] - Released 04/23/2023 16:24 Performed By: #### L [id number] #### [facility] ([facility]) [address] [place] [address] BASIC METABOLIC PANELon 10-0 Anion gap [Moles/Vol] 12 mmol/L Normal 7-20 [facility] Comment on above: Performed By: #### L [id number] #### [facility] ([facility]) [address] [place] [address] Calcium [Mass/Vol] 8.7 mg/dL Normal 8.6-10.3 [facility] Comment on above: Performed By: #### L [id number] #### [facility] ([facility]) [address] [place] [address] Chloride [Moles/Vol] 102 mmol/L Normal 98-107 [facility] Comment on above: Performed By: #### L [id number] #### [facility] ([facility]) [address] [place] [address] CO2 [Moles/Vol] 19 mmol/L Low 21-31 [facility] Comment on above: Performed By: #### L [id number] #### [facility] ([facility]) [address] [place] [address] Creatinine [Mass/Vol] 1.18 mg/dL Normal 0.70-1.30 [facility] Comment on above: Performed By: #### L [id number] #### [facility] ([facility]) [address] [place] [address] GLOMERULAR FILTRATION RATE ML/MIN/1.73 SQ M.PREDICTED 71.5 mL/min/1.73m*2 Normal >60.0 [facility] Comment on above: Result Comment: The [facility]???s estimated glomerular filtration rate (eGFR) will no longer include consideration of race in its calculation. The National Kidney Foundation???s eGFR Task Force developed new recommendations for the estimation of the glomerular filtration rate in the [place] They recommend immediate implementation of the new equation refit without the race variable in all laboratories because the calculation does not include race. In addition to not including race in the calculation and reporting, it included diversity in its development, and has acceptable performance characteristics and potential consequences that do not disproportionately affect any one group of individuals. Performed By: #### L [id number] #### [facility] ([facility]) [address] [place] [address] Glucose [Mass/Vol] 105 mg/dL High 70-100 [facility] Comment on above: Performed By: #### L [id number] #### [facility] ([facility]) [address] [place] [address] Potassium [Moles/Vol] 3.1 mmol/L Low 3.5-5.1 [facility] Comment on above: Performed By: #### L [id number] #### [facility] ([facility]) [address] [place] [address] Sodium [Moles/Vol] 130 mmol/L Low 136-145 [facility] Comment on above: Performed By: #### L [id number] #### [facility] [address] [place] [address] Urea nitrogen [Mass/Vol] 13 mg/dL Normal 7-25 [facility] Comment on above: Performed By: #### L [id number] #### [facility] [facility] [address] [place] [address] UREA NITROGEN/CREATININE (MASS RATIO) IN SER/PLAS 11.0 Normal [facility] Comment on above: Performed By: #### L [id number] #### [facility] ([facility]) [address] [place] [address] CBCon 04-22-2023 Erythrocyte distribution width (RBC) [Ratio] 16.8 % High 11.5-15.0 [facility] Comment on above: Performed By: #### L [id number] #### [facility] ([facility]) [address] [place] [address] ERYTHROCYTE MEAN CORPUSCULAR HEMOGLOBIN CONCENTRATION (G/DL) BY AUTOMATED 33.3 g/dL Normal 32.0-35.0 [facility] Comment on above: Performed By: #### L [id number] #### [facility] ([facility]) [address] [place] [address] Hematocrit (Bld) [Volume fraction] 37.5 % Low 39.0-55.0 [facility] Comment on above: Performed By: #### L [id number] #### [facility] [address] [place] [address] Hemoglobin (Bld) [Mass/Vol] 12.5 g/dL Low 13.0-17.0 [facility] Comment on above: Performed By: #### L [id number] #### [facility] ([facility] [address] [place] [address] MCH (RBC) [Entitic mass] 32.7 pg Normal 27.0-33.0 [facility] Comment on above: Performed By: #### L [id number] #### [facility] ([facility]) [address] [address] MCV (RBC) [Entitic vol] 98.2 fL High 82.0-98.0 [facility] Comment on above: Performed By: #### L [id number] #### [facility] ([facility]) [address] [place] [address] PLATELETS (10*3/UL) IN BLOOD AUTOMATED COUNT 188 10*3/uL Normal 150-400 [facility] Comment on above: Performed By: #### L [id number] #### [facility] ([facility]) [address] [place] [address] RBC (Bld) [#/Vol] 3.82 10*6/uL Low 4.20-5.70 [facility] Comment on above: Performed By: #### L [id number] #### [facility] ([facility]) [address] [place] [address] WBC (Bld) [#/Vol] 8.42 10*3/uL Normal 4.00-10.60 [facility] Comment on above: Performed By: #### L [id number] #### [facility] ([facility]) [address] [place] [address] CORTISOLon 04-22-2023 CORTISOL (UG/DL) IN SER/PLAS 9.8 ug/dL High 0-9 [facility] Comment on above: Order Comment: 60 mi n draw Performed By: #### L [id number] #### [facility] ([facility]) [address] [place] [address] CORTISOL (UG/DL) IN SER/PLAS 8.3 ug/dL Normal 0-9 [facility] Comment on above: Order Comment: Obtai n 30min after cosyntropin injection. Performed By: #### L [id number] #### [facility] ([facility]) [address] [place] [address] CORTISOL (UG/DL) IN SER/PLAS 1.8 ug/dL Low 6-23 [facility] Comment on above: Performed By: #### L [id number] #### [facility] ([facility]) [address] [place] [address] MAGNESIUMon 04-22-2023 Magnesium [Mass/Vol] 1.7 mg/dL Low 1.9-2.7 [facility] Comment on above: Performed By: #### L [id number] #### [facility]) [address] [place] [address] NURSNOTEon 04-22-2023 NURSNOTE Cortisol lab draw to be collected at 1305; pt difficult draw. X 2 attempts failed in right hand and left upper forearm. Successful draw at 1320 in right upper arm. Specimen sent to lab. Pt tolerated procedure without difficulty. Call light at patient's side and pt denies further needs at this time. Normal [facility] 30on 04-21-2023 30 Problem: Pain - Adul t Goal: Verbalizes/displays adequate comfort level or baseline comfort level Outcome: Progressing Problem: Safety - Adult Goal: Free from fall injury Outcome: Progressing Flowsheets (Taken 04/21/2023829) Free from fall injury: Assess patient frequently for physical needs Identify cognitive and physical deficits and behaviors that affect risk of falls Problem: Discharge Planning Goal: Discharge to home or other facility with appropriate resources Outcome: Progressing Flowsheets (Taken 04/21/2023829) Discharge to home or other facility with appropriate resources: Identify barriers to discharge with patient and caregiver Problem: Chronic Conditions and Co-morbidities Goal: Patient's chronic conditions and co-morbidity symptoms are monitored and maintained or improved Outcome: Progressing Flowsheets (Taken 04/21/2023829) Care Plan - Patient's Chronic Conditions and Co-Morbidity Symptoms are Monitored and Maintained or Improved: Monitor and assess patient's chronic conditions and comorbid symptoms for stability, deterioration, or improvement Problem: Neurosensory - Adult Goal: Achieves stable or improved neurological status Outcome: Progressing Flowsheets (Taken 04/21/2023829) Achieves stable or improved neurological status: Assess for and report changes in neurological status Goal: Absence of seizures Outcome: Progressing Flowsheets (Taken 04/21/2023829) Absence of seizures: Monitor for seizure activity. If seizure occurs, document type and location of movements and any associated apnea Goal: Remains free of injury related to seizures activity Outcome: Progressing Flowsheets (Taken 04/21/2023829) Remains free of injury related to seizure activity: Maintain airway, patient safety and administer oxygen as ordered Goal: Achieves maximal functionality and self care Outcome: Progressing Flowsheets (Taken 04/21/2023829) Achieves maximal functionality and self care: Monitor swallowing and airway patency with patient fatigue and changes in neurological status Problem: Cardiovascular - Adult Goal: Maintains optimal cardiac output and hemodynamic stability Outcome: Progressing Flowsheets (Taken 04/21/2023829) Maintains optimal cardiac output and hemodynamic stability: Monitor blood pressure and heart rate Goal: Absence of cardiac dysrhythmias or at baseline Outcome: Progressing Flowsheets (Taken 04/21/2023829) Absence of cardiac dysrhythmias or at baseline: Monitor cardiac rate and rhythm Problem: Metabolic/Fluid and Electrolytes - Adult Goal: Electrolytes maintained within normal limits Outcome: Progressing Flowsheets (Taken 04/21/2023829) Electrolytes maintained within normal limits: Monitor labs and assess patient for signs and symptoms of electrolyte imbalances Goal: Hemodynamic stability and optimal renal function maintained Outcome: Progressing Flowsheets (Taken 04/21/2023829) Hemodynamic stability and optimal renal function maintained: Monitor labs and assess for signs and symptoms of volume excess or deficit Goal: Glucose maintained within prescribed range Outcome: Progressing Flowsheets (Taken 04/21/2023829) Glucose maintained within prescribed range: Monitor blood glucose as ordered The patient is Moderately Stable - Low risk of patient condition declining or worsening The patient's goals for the shift include comfort/rest The clinical goals for the shift include pain control/safety Normal [facility] BASIC METABOLIC PANELon 10-0 Anion gap [Moles/Vol] 13 mmol/L Normal - [facility] Comment on above: Performed By: #### L [id number] #### [facility] ([facility]) [address] [place] [address] Calcium [Mass/Vol] 9.0 mg/dL Normal 8.6-10.3 [facility] Comment on above: Performed By: #### L [id number] #### [facility] [address] [place] [address] Chloride [Moles/Vol] 102 mmol/L Normal 98-107 [facility] Comment on above: Performed By: #### L [id number] #### [facility] ([facility]) [address] [place] [address] CO2 [Moles/Vol] 18 mmol/L Low 21-31 [facility] Comment on above: Performed By: #### L [id number] #### [facility] ([facility]) [address] [place] [address] Creatinine [Mass/Vol] 1.18 mg/dL Normal 0.70-1.30 [facility] Comment on above: Performed By: #### L [id number] #### [facility] ([facility]) [address] [place] [address] GLOMERULAR FILTRATION RATE ML/MIN/1.73 SQ M.PREDICTED 71.5 mL/min/1.73m*2 Normal >60.0 [facility] Comment on above: Result Comment: The [facility]???s estimated glomerular filtration rate (eGFR) will no longer include consideration of race in its calculation. The [employer]???s eGFR Task Force developed new recommendations for the estimation of the glomerular filtration rate in the [place] They recommend immediate implementation of the new equation refit without the race variable in all laboratories because the calculation does not include race. In addition to not including race in the calculation and reporting, it included diversity in its development, and has acceptable performance characteristics and potential consequences that do not disproportionately affect any one group of individuals. Performed By: #### L [id number] #### [facility] ([facility]) [address] [place] [address] Glucose [Mass/Vol] 88 mg/dL Normal 70-100 [facility] Comment on above: Performed By: #### L [id number] #### [facility] [address] [place] [address] Potassium [Moles/Vol] 3.7 mmol/L Normal 3.5-5.1 [facility] Comment on above: Performed By: #### L [id number] #### [facility] ([facility]) [address] [place] [address] Sodium [Moles/Vol] 129 mmol/L Low 136-145 [facility] Comment on above: Performed By: #### L [id number] #### [facility] ([facility]) [address] [place] [address] Urea nitrogen [Mass/Vol] 12 mg/dL Normal 7-25 [facility] Comment on above: Performed By: #### L [id number] #### [facility] ([facility]) [address] [place] [address] UREA NITROGEN/CREATININE (MASS RATIO) IN SER/PLAS 10.2 Normal [facility] Comment on above: Performed By: #### L [id number] #### [facility] ([facility]) [address] [place] [address] CBCon 04-21-2023 Erythrocyte distribution width (RBC) [Ratio] 16.6 % High 11.5-15.0 [facility] Comment on above: Performed By: #### L [id number] #### [facility] ([facility]) [address] [place] [address] ERYTHROCYTE MEAN CORPUSCULAR HEMOGLOBIN CONCENTRATION (G/DL) BY AUTOMATED 34.5 g/dL Normal 32.0-35.0 [facility] Comment on above: Performed By: #### L [id number] #### [facility] ([facility]) [address] [place] [address] Hematocrit (Bld) [Volume fraction] 39.7 % Normal 39.0-55.0 [facility] Comment on above: Performed By: #### L [id number] #### [facility] ([facility] [address] [place] [address] Hemoglobin (Bld) [Mass/Vol] 13.7 g/dL Normal 13.0-17.0 [facility] Comment on above: Performed By: #### L [id number] #### [facility] ([facility]) [address] [place] [address] MCH (RBC) [Entitic mass] 33.4 pg High 27.0-33.0 [facility] Comment on above: Performed By: #### L [id number] #### [facility] ([facility]) [address] [place] [address] MCV (RBC) [Entitic vol] 96.8 fL Normal 82.0-98.0 [facility] Comment on above: Performed By: #### L [id number] #### [facility] ([facility]) [address] [place] [address] PLATELETS (10*3/UL) IN BLOOD AUTOMATED COUNT 179 10*3/uL Normal 150-400 [facility] Comment on above: Performed By: #### L [id number] #### [facility] ([facility]) [address] [place] [address] RBC (Bld) [#/Vol] 4.10 10*6/uL Low 4.20-5.70 [facility] Comment on above: Performed By: #### L [id number] #### [facility] ([facility]) [address] [place] [address] WBC (Bld) [#/Vol] 8.95 10*3/uL Normal 4.00-10.60 [facility] Comment on above: Performed By: #### L [id number] #### [facility] ([facility]) [address] [place] [address] CORTISOLon 04-21-2023 CORTISOL (UG/DL) IN SER/PLAS 1.8 ug/dL Low 6-23 [facility] Comment on above: Performed By: #### L [id number] #### [facility] ([facility]) [address] [place] [address] CREATININE, URINE, RANDOMon 04-21-2023 Creatinine (U) [Mass/Vol] 94.0 mg/dL Normal 26-299 [facility] Comment on above: Performed By: #### L [id number] #### [facility] ([facility]) [address] [place] [address] MAGNESIUMon 04-21-2023 Magnesium [Mass/Vol] 1.8 mg/dL Low 1.9-2.7 [facility] Comment on above: Performed By: #### L [id number] #### [facility] ([facility]) [address] [place] [address] NURSNOTEon 04-21-[address] Maeve baca of TSH 188.4, sodium 129, and creatinine 1.33. She stated sodium and creatinine are improving and also pt will need IV synthroid replacement and she will leave it to primary to replace but told data analyst report writer to still give oral synthroid in AM as scheduled. Normal [facility] SODIUM, URINE, RANDOMon 10-0 Sodium (U) [Moles/Vol] 33 mmol/L Normal [facility] Comment on above: Performed By: #### L [id number] #### [facility] ([facility]) [address] [place] [address] T3, FREEon 04-21-2023 TRIIODOTHYRONINE (T3) FREE (PG/ML) IN SER/PLAS 1.9 pg/mL Low 2.5-3.9 [facility] Comment on above: Performed By: #### L [id number] #### [facility] ([facility]) [address] [place] [address] URINALYSISon 04-21-2023 BILIRUBIN, TOTAL PRESENCE IN URINE Negative Normal Negative [facility] Comment on above: Order Comment: Micro scopics not performed on urines with negative chemical reactions unless requested on original order. Performed By: #### L [id number] #### [facility] ([facility]) [address] [place] [address] Clarity (U) Clear Normal Clear [facility] Comment on above: Order Comment: Micro scopics not performed on urines with negative chemical reactions unless requested on original order. Performed By: #### L [id number] #### [facility] ([facility] [address] [place] [address] Color (U) Yellow Normal Yellow [facility] Comment on above: Order Comment: Micro scopics not performed on urines with negative chemical reactions unless requested on original order. Performed By: #### L [id number] #### [facility] ([facility]) [address] [place] [address] Glucose (U) [Mass/Vol] Negative Normal Negative [facility] Comment on above: Order Comment: Micro scopics not performed on urines with negative chemical reactions unless requested on original order. Performed By: #### L [id number] #### [facility] ([facility]) [address] [place] [address] HEMOGLOBIN PRESENCE IN URINE Negative Normal Negative [facility] Comment on above: Order Comment: Micro scopics not performed on urines with negative chemical reactions unless requested on original order. Performed By: #### L [id number] #### [facility] ([facility]) [address] [place] [address] Ketones Ql (U) Trace Abnormal Negative [facility] Comment on above: Order Comment: Micro scopics not performed on urines with negative chemical reactions unless requested on original order. Performed By: #### L [id number] #### [facility] ([facility]) [address] [place] [address] LEUKOCYTE ESTERASE PRESENCE IN URINE BY TEST STRIP Negative Normal Negative [facility] Comment on above: Order Comment: Micro scopics not performed on urines with negative chemical reactions unless requested on original order. Performed By: #### L [id number] #### [facility] ([facility]) [address] [place] [address] NITRITE PRESENCE IN URINE Negative Normal Negative [facility] Comment on above: Order Comment: Micro scopics not performed on urines with negative chemical reactions unless requested on original order. Performed By: #### L [id number] #### [facility] ([facility]) [address] [place] [address] pH (U) 5.0 [pH] Normal 5.0-8.0 [facility] Comment on above: Order Comment: Micro scopics not performed on urines with negative chemical reactions unless requested on original order. Performed By: #### L [id number] #### [facility] ([facility]) [address] [place] [address] Protein (U) [Mass/Vol] Negative Normal Negative [facility] Comment on above: Order Comment: Micro scopics not performed on urines with negative chemical reactions unless requested on original order. Performed By: #### L [id number] #### [facility] ([facility]) [address] [place] [address] Specific gravity (U) [Rel density] 1.011 Low 1.015-1.020 [facility] Comment on above: Order Comment: Micro scopics not performed on urines with negative chemical reactions unless requested on original order. Performed By: #### L [id number] #### [facility] ([facility]) [address] [place] [address] B-TYPE NATRIURETIC PEPTIDEon 04-20-2023 Natriuretic peptide B (Bld) [Mass/Vol] 17 pg/mL Normal 0-100 [facility] Comment on above: Performed By: #### L [id number] #### [facility] ([facility]) [address] [place] [address] CBC WITH AUTO DIFFERENTIALon 04-20-2023 Basophils (Bld) [#/Vol] 0.08 10*3/uL Normal 0.00-0.20 [facility] Comment on above: Performed By: #### L [id number] #### [facility] ([facility]) [address] [place] [address] Basophils/100 WBC (Bld) 0.8 % Normal 0.0-1.0 [facility] Comment on above: Performed By: #### L [id number] #### [facility] ([facility]) [address] [place] [address] Eosinophils (Bld) [#/Vol] 0.11 10*3/uL Normal 0.00-0.50 [facility] Comment on above: Performed By: #### L [id number] #### [facility] ([facility]) [address] [place] [address] Eosinophils/100 WBC (Bld) 1.2 % Normal 0.0-6.0 [facility] Comment on above: Performed By: #### L [id number] #### [facility] [address] [place] [address] Erythrocyte distribution width (RBC) [Ratio] 16.5 % High 11.5-15.0 [facility] Comment on above: Performed By: #### L [id number] #### [facility] ([facility]) [address] [place] [address] ERYTHROCYTE MEAN CORPUSCULAR HEMOGLOBIN CONCENTRATION (G/DL) BY AUTOMATED 33.5 g/dL Normal 32.0-35.0 [facility] Comment on above: Performed By: #### L [id number] #### [facility] ([facility]) [address] [place] [address] Hematocrit (Bld) [Volume fraction] 42.7 % Normal 39.0-55.0 [facility] Comment on above: Performed By: #### L [id number] #### [facility] [address] [place] [address] Hemoglobin (Bld) [Mass/Vol] 14.3 g/dL Normal 13.0-17.0 [facility] Comment on above: Performed By: #### L [id number] #### [facility] [address] [place] [address] Immature granulocytes (Bld) [#/Vol] 0.11 10*3/uL Normal 0.00-0.20 [facility] Comment on above: Performed By: #### L [id number] #### [facility] ([facility]) [address] [place] [address] Immature granulocytes/100 WBC (Bld) 1.2 % High 0.0-1.0 [facility] Comment on above: Performed By: #### L [id number] #### [facility] [address] [place] [address] Lymphocytes (Bld) [#/Vol] 3.02 10*3/uL Normal 1.20-4.00 [facility] Comment on above: Performed By: #### L [id number] #### [facility] [address] [place] [address] Lymphocytes/100 WBC (Bld) 32.0 % Normal 20.0-45.0 [facility] Comment on above: Performed By: #### L [id number] #### [facility] ([facility]) [address] [place] [address] MCH (RBC) [Entitic mass] 32.5 pg Normal 27.0-33.0 [facility] Comment on above: Performed By: #### L [id number] #### [facility] ([facility]) [address] [place] [address] MCV (RBC) [Entitic vol] 97.0 fL Normal 82.0-98.0 [facility] Comment on above: Performed By: #### L [id number] #### [facility] ([facility]) [address] [place] [address] Monocytes (Bld) [#/Vol] 0.31 10*3/uL Normal 0.10-1.00 [facility] Comment on above: Performed By: #### L [id number] #### [facility] ([facility]) [address] [place] [address] Monocytes/100 WBC (Bld) 3.3 % Low 5.0-12.0 [facility] Comment on above: Performed By: #### L [id number] #### [facility] [address] [place] [address] Neutrophils (Bld) [#/Vol] 5.81 10*3/uL Normal 1.60-7.60 [facility] Comment on above: Performed By: #### L [id number] #### [facility] ([facility]) [address] [place] [address] Neutrophils/100 WBC (Bld) 61.5 % Normal 40.0-72.0 [facility] Comment on above: Performed By: #### L [id number] #### [facility] ([facility]) [address] [place] [address] NRBC (PER 100 WBCS) BY AUTOMATED COUNT 0.0 % Normal 0 [facility] Comment on above: Performed By: #### L [id number] #### [facility] ([facility]) [address] [place] [address] PLATELETS (10*3/UL) IN BLOOD AUTOMATED COUNT 212 10*3/uL Normal 150-400 [facility] Comment on above: Performed By: #### L [id number] #### [facility] ([facility]) [address] [place] [address] RBC (Bld) [#/Vol] 4.40 10*6/uL Normal 4.20-5.70 [facility] Comment on above: Performed By: #### L [id number] #### [facility] ([facility]) [address] [place] [address] WBC (Bld) [#/Vol] 9.44 10*3/uL Normal 4.00-10.60 [facility] Comment on above: Performed By: #### L [id number] #### [facility] ([facility]) [address] [place] [address] COMPREHENSIVE METABOLIC PANE Dawit 04-20-2023 Albumin [Mass/Vol] 5.1 g/dL Normal 3.5-5.7 [facility] Comment on above: Performed By: #### L [id number] #### [facility] ([facility]) [address] [place] [address] ALP [Catalytic activity/Vol] 48 U/L Normal 34-104 [facility] Comment on above: Performed By: #### L [id number] #### [facility] ([facility]) [address] [place] [address] ALT [Catalytic activity/Vol] 8 U/L Normal 7-52 [facility] Comment on above: Performed By: #### L [id number] #### [facility] ([facility]) [address] [place] [address] Anion gap [Moles/Vol] 18 mmol/L Normal 7-20 [facility] Comment on above: Performed By: #### L [id number] #### [facility] [address] [place] [address] AST [Catalytic activity/Vol] 12 U/L Low 13-39 [facility] Comment on above: Performed By: #### L [id number] #### [facility] ([facility]) [address] [place] [address] Bilirubin [Mass/Vol] 0.6 mg/dL Normal 0.3-1.0 [facility] Comment on above: Performed By: #### L [id number] #### [facility] ([facility]) [address] [place] [address] Calcium [Mass/Vol] 9.9 mg/dL Normal 8.6-10.3 [facility] Comment on above: Performed By: #### L [id number] #### [facility] [address] [place] [address] Chloride [Moles/Vol] 96 mmol/L Low 98-107 [facility] Comment on above: Performed By: #### L [id number] #### [facility] ([facility]) [address] [place] [address] CO2 [Moles/Vol] 19 mmol/L Low 21-31 [facility] Comment on above: Performed By: #### L [id number] #### [facility] ([facility]) [address] [place] [address] Creatinine [Mass/Vol] 1.33 mg/dL High 0.70-1.30 [facility] Comment on above: Performed By: #### L [id number] #### [facility] ([facility]) [address] [place] [address] GLOMERULAR FILTRATION RATE ML/MIN/1.73 SQ M.PREDICTED 62.0 mL/min/1.73m*2 Normal >60.0 [facility] Comment on above: Result Comment: The [facility]???s estimated glomerular filtration rate (eGFR) will no longer include consideration of race in its calculation. The National Kidney Foundation???s eGFR Task Force developed new recommendations for the estimation of the glomerular filtration rate in the [place] They recommend immediate implementation of the new equation refit without the race variable in all laboratories because the calculation does not include race. In addition to not including race in the calculation and reporting, it included diversity in its development, and has acceptable performance characteristics and potential consequences that do not disproportionately affect any one group of individuals. Performed By: #### L [id number] #### [facility] ([facility]) [address] [place] [address] Glucose [Mass/Vol] 75 mg/dL Normal 70-100 [facility] Comment on above: Performed By: #### L [id number] #### [facility] ([facility]) [address] [place] [address] Potassium [Moles/Vol] 3.6 mmol/L Normal 3.5-5.1 [facility] Comment on above: Performed By: #### L [id number] #### [facility] ([facility]) [address] [place] [address] Protein [Mass/Vol] 8.3 g/dL Normal 6.0-8.3 [facility] Comment on above: Performed By: #### L [id number] #### [facility] ([facility]) [address] [place] [address] Sodium [Moles/Vol] 129 mmol/L Low 136-145 [facility] Comment on above: Performed By: #### L [id number] #### [facility] ([facility]) [address] [place] [address] Urea nitrogen [Mass/Vol] 10 mg/dL Normal 7-25 [facility] Comment on above: Performed By: #### L [id number] #### [facility] ([facility]) [address] [address] UREA NITROGEN/CREATININE (MASS RATIO) IN SER/PLAS 7.5 Normal [facility] Comment on above: Performed By: #### L [id number] #### [facility] ([facility]) [address] [place] [address] CONSULTon 04-20-2023 CONSULT -- Attestation signed by Thong Gabriel MD at 04/22/2023 10:23 AM By using the attestations below, the signing clinician agrees that I have read and verify that the documentation has been personally reviewed by me and ensure that the documentation accurately reflects the encounter. GC: I personally saw this patient on the day of the encounter, performed the ulloa portion(s) of the service and participated in the management and confirm the resident's documentation. Please note there may be an additional personal documentation from me. No evidence of AV block on EKG. Will suggest treadmill exercise to assess for AV block. Cardiology Consult Note Reason for Consult: Syncope HPI: Rehan Poole is a 58 y.o. male with history of HTN who came to hospital as a transfer [facility] due to concern for mobitz II and need for PPM. Patient reported frequent syncope for the past 2 days. He has fatigue and shortness of breath for longer that a year. He has cough and was treated recently for URI. His EKGs were reviewed, none of which showed Mobitz II but rather sinus. Notably, his electrolytes were abnormal with hyponatremia and hypokalemia. Cardiology ROS: 8 point ROS is negative except as mentioned. Past Medical History He has no past medical history on file. Surgical History He has no past surgical history on file. Social History He has no history on file for tobacco use, alcohol use, and drug use. Family History No family history on file. Allergies [place] and Penicillins Medications (Not in a hospital admission) Last Recorded Vitals Patient Vitals for the past 24 hrs: BP Pulse Resp SpO2 04/20/23 1456 (!) 145/101 58 18 95 % Physical Examination: GENERAL: AOx3, in no acute distress. HEAD: Atraumatic, normocephalic. EYES: ELEANOR, EOMI. NECK: No JVD present. CARDIAC: RRR. No murmur, rubs, or gallops. RESPIRATORY: CTAB, no increased effort of breathing. ABDOMEN: Soft, nontender, nondistended. EXTREMITIES: No lower extremity edema, peripheral pulses are 2+ bilaterally. NEURO: No focal deficits Relevant Lab Results Encounter Date: 04/20/23 ECG 12 lead Result Value Ventricular Rate 59 Atrial Rate 59 MI Interval 132 QRS DURATION 86 QT Interval 430 QTC CALCULATION(BAZETT) 425 P Gordon 43 R-Gordon -12 T Wave Gordon 73 Impression Sinus bradycardia Low voltage QRS Cannot rule out Anterior infarct , age undetermined Abnormal ECG No previous ECGs available No results found for: CKTOTAL, CKMB, CKMBINDEX, TROPONINI No echocardiogram results found for the past 12 months No nuclear medicine results found for the past 12 months Relevant Imaging Results ECG 12 lead Sinus bradycardia Low voltage QRS Cannot rule out Anterior infarct , age undetermined Abnormal ECG No previous ECGs available Assessment: Concern for AV block Possible Need for PPM Syncope likely 2/2 electrolyte derangement. Fatigue, likely 2/2 URI Plan: No indication for pacemaker placement at this time. Recommend tele monitoring. Exercise treadmill test in the morning. Cardiology team will continue to follow. Mireille Gilbert MD Criminal Profiler PGY-4 [facility] Pager # [phone] Normal [facility] MAGNESIUMon 10-06-2023 Magnesium [Mass/Vol] 1.9 mg/dL Normal 1.9-2.7 [facility] Comment on above: Performed By: #### L [id number] #### [facility] ([facility]) [address] [place] [address] NURSNOTEon 04-20-2023 NURSNOTE Report called to BRISEYDA Noble Normal [facility] Orders Onlyon 04-20-2023 Orders Only [id number] Rehan Poole 1965 M Date Provider Department Center 04/20/2023 BYRON BRANTLEY [facility] [place] [facility] No family history on file Normal [facility] T4, FREEon 04-20-2023 THYROXINE (T4) FREE (NG/DL) IN SER/PLAS <0.25 Low 0.71-1.85 [facility] Comment on above: Performed By: #### L [id number] #### [facility] ([facility]) [address] [place] [address] TROPONIN Ion 04-20-2023 Troponin I.cardiac [Mass/Vol] 0.00 ng/mL Normal 0.00-0.04 [facility] Comment on above: Performed By: #### L [id number] #### [facility] ([facility]) [address] [place] [address] TSH3 REFLEX TO FT4on 023 THYROTROPIN (MIU/L) IN SER/PLAS BY DETECTION LIMIT <= 0.05 MIU/L 188.64 mIU/L Critically high 0.34-5.60 [facility] Comment on above: Performed By: #### L [id number] #### [facility] ([facility]) [address] [place] [address] CBC AUTO DIFFon 11-28-2022 BASO # 0.0 103/ul Normal 0.0-0.1 [facility] Comment on above: Performed By: #### B CHIEF ORDER DISPATCHER, T7, CMP, TSH #### [facility] [address] [address] [address] Get Whitten Basophils/100 WBC (Bld) 0.4 % Normal 0.2-2.0 [facility] Comment on above: Performed By: #### B CHIEF ORDER DISPATCHER, T7, CMP, TSH #### [facility] [address] [place] [address] Dr. Get Whitten EO # 0.1 103/ul Normal 0.0-0.7 [facility] Comment on above: Performed By: #### B CHIEF ORDER DISPATCHER, T7, CMP, TSH #### [facility] [address] [place] [address] Dr. Get Whitten Eosinophils/100 WBC (Bld) 0.5 % Critically low 0.9-7.0 [facility] Comment on above: Performed By: #### B CHIEF ORDER DISPATCHER, T7, CMP, TSH #### [facility] [address] [place] [address] Dr. Get Whitten Erythrocyte distribution width (RBC) [Ratio] 18.6 % Critically high 11.0-15.0 [facility] Comment on above: Performed By: #### B CHIEF ORDER DISPATCHER, T7, CMP, TSH #### [facility] [address] [place] [address] Dr. Get Whitten Hematocrit (Bld) [Volume fraction] 33.3 % Critically low 42.0-54.0 [facility] Comment on above: Performed By: #### B CHIEF ORDER DISPATCHER, T7, CMP, TSH #### [facility] [address] [place] [address] Dr. Get Whitten Hemoglobin (Bld) [Mass/Vol] 11.1 g/dL Critically low 14.0-18.0 [facility] Comment on above: Performed By: #### B CHIEF ORDER DISPATCHER, T7, CMP, TSH #### [facility] [address] [place] [address] Dr. Get Whitten IG # 0.30 10e3/ul Critically high 0.00-0.03 [facility] Comment on above: Performed By: #### B CHIEF ORDER DISPATCHER, T7, CMP, TSH #### [facility] [address] [place] [address] Dr. Get Whitten IG % 3.3 % Critically high 0.0-0.5 [facility] Comment on above: Performed By: #### B CHIEF ORDER DISPATCHER, T7, CMP, TSH #### [facility] [address] [place] [address] Dr. Get Whitten LYMPH # 3.0 103/ul Normal 1.2-3.8 [facility] Comment on above: Performed By: #### B CHIEF ORDER DISPATCHER, T7, CMP, TSH #### [facility] [address] [place] [address] Dr. Get Whitten Lymphocytes/100 WBC (Bld) 32.7 % Normal 20.5-60.0 [facility] Comment on above: Performed By: #### B CHIEF ORDER DISPATCHER, T7, CMP, TSH #### [facility] [address] [place] [address] Dr. Get Whitten MANUAL DIFF REQ NO Normal [facility] Comment on above: Performed By: #### B CHIEF ORDER DISPATCHER, T7, CMP, TSH #### [facility] [address] [place] [address] Dr. Get Whitten MCH (RBC) [Entitic mass] 34.8 pg Critically high 25.9-34.0 [facility] Comment on above: Performed By: #### B CHIEF ORDER DISPATCHER, T7, CMP, TSH #### [facility] [address] [place] [address] Dr. Get Whitten MCHC (RBC) [Mass/Vol] 33.3 g/dL Normal 29.9-35.2 [facility] Comment on above: Performed By: #### B CHIEF ORDER DISPATCHER, T7, CMP, TSH #### [facility] [address] [place] [address] Dr. Get Whitten MCV (RBC) [Entitic vol] 104.4 fL Critically high 80.0-94.0 [facility] Comment on above: Performed By: #### B CHIEF ORDER DISPATCHER, T7, CMP, TSH #### [facility] [address] [place] [address] Dr. Get Whitten MONO # 0.4 103/ul Normal 0.3-0.8 [facility] Comment on above: Performed By: #### B CHIEF ORDER DISPATCHER, T7, CMP, TSH #### [facility] [address] [address] [address] Get Whitten Monocytes/100 WBC (Bld) 4.2 % Normal 1.7-12.0 [facility] Comment on above: Performed By: #### B CHIEF ORDER DISPATCHER, T7, CMP, TSH #### [facility] [address] [address] [address] Get Whitten NEUT # 5.4 103/ul Normal 1.4-6.5 [facility] Comment on above: Performed By: #### B CHIEF ORDER DISPATCHER, T7, CMP, TSH #### [facility] [address] [place] [address] Dr. Get Whitten Neutrophils/100 WBC (Bld) 58.9 % Normal 43.0-75.0 [facility] Comment on above: Performed By: #### B CHIEF ORDER DISPATCHER, T7, CMP, TSH #### [facility] [address] [place] [address] Dr. Get Whitten Platelet mean volume (Bld) [Entitic vol] 9.5 fL Normal 9.5-13.5 [facility] Comment on above: Performed By: #### B CHIEF ORDER DISPATCHER, T7, CMP, TSH #### [facility] [address] [place] [address] Dr. Get Whitten PLT 187 103/ul Normal 150-450 [facility] Comment on above: Performed By: #### B CHIEF ORDER DISPATCHER, T7, CMP, TSH #### [facility] [address] [address] [address] Get Whitten RBC 3.19 106/ul Critically low 4.70-6.10 [facility] Comment on above: Performed By: #### B CHIEF ORDER DISPATCHER, T7, CMP, TSH #### [facility] [address] [place] [address] Dr. Get Whitten WBC 9.1 103/ul Normal 4.0-11.0 [facility] Comment on above: Performed By: #### B CHIEF ORDER DISPATCHER, T7, CMP, TSH #### [facility] [address] [place] [address] Dr. Get Whitten PROF 14(COMP METB)on 023 Albumin [Mass/Vol] 3.9 g/dL Normal 3.4-5.0 [facility] Comment on above: Performed By: #### C MP #### [facility] [address] [place] [address] Dr. Get Whitten Albumin/Globulin [Mass ratio] 1.1 {ratio} Normal [facility] Comment on above: Performed By: #### C MP #### [facility] [address] [address] [address] Get Whitten ALP [Catalytic activity/Vol] 34 U/L Critically low 46-116 [facility] Comment on above: Performed By: #### C MP #### [facility] [address] [place] [address] Dr. Get Whitten ALT [Catalytic activity/Vol] 21 U/L Normal 16-63 [facility] Comment on above: Performed By: #### C MP #### [facility] [address] [place] [address] Dr. Get Whitten Anion gap [Moles/Vol] 17.7 mmol/L Normal [facility] Comment on above: Performed By: #### C MP #### [facility] [address] [place] [address] Dr. Get Whitten AST [Catalytic activity/Vol] 15 U/L Normal 15-37 [facility] Comment on above: Performed By: #### C MP #### [facility] [address] [place] [address] Dr. Get Whitten Bilirubin [Mass/Vol] 0.3 mg/dL Normal 0.2-1.0 [facility] Comment on above: Performed By: #### C MP #### [facility] [address] [place] [address] Dr. Get Whitten Calcium [Mass/Vol] 8.7 mg/dL Normal 8.5-10.1 [facility] Comment on above: Performed By: #### C MP #### [facility] [address] [place] [address] Dr. Get Whitten Chloride [Moles/Vol] 99 mmol/L Normal 98-107 [facility] Comment on above: Performed By: #### C MP #### [facility] [address] [address] [address] Get Whitten CO2 [Moles/Vol] 21.8 mmol/L Normal 21.0-32.0 [facility] Comment on above: Performed By: #### C MP #### [facility] [address] [address] [address] Get Whitten Creatinine [Mass/Vol] 1.69 mg/dL Critically high 0.70-1.30 [facility] Comment on above: Performed By: #### C MP #### [facility] [address] [address] [address] Get Whitten EGFR-AF INDONESIAN 51 mL/min/1.73m2 Critically low >=60 [facility] Comment on above: Performed By: #### C MP #### [facility] [address] [address] [address] Get Whitten EGFR-NON AF INDONESIAN 42 mL/min/1.73m2 Critically low >=60 [facility] Comment on above: Performed By: #### C MP #### [facility] [address] [address] [address] Get Whitten Globulin (S) [Mass/Vol] 3.6 g/dL Normal [facility] Comment on above: Performed By: #### C MP #### [facility] [address] [address] [address] Get Whitten Glucose [Mass/Vol] 96 mg/dL Normal 74-106 [facility] Comment on above: Performed By: #### C MP #### [facility] [address] [address] [address] Get Whitten Potassium [Moles/Vol] 3.5 mmol/L Normal 3.5-5.1 [facility] Comment on above: Performed By: #### C MP #### [facility] [address] [address] [address] Get Whitten Protein [Mass/Vol] 7.5 g/dL Normal 6.4-8.2 [facility] Comment on above: Performed By: #### C MP #### [facility] [address] [address] [address] Get Whitten Sodium [Moles/Vol] 135 mmol/L Critically low 136-145 [facility] Comment on above: Performed By: #### C MP #### [facility] [address] [address] [address] Get Whitten Urea nitrogen [Mass/Vol] 15.0 mg/dL Normal 7.0-18.0 [facility] Comment on above: Performed By: #### C MP #### [facility] [address] [place] [address] Dr. Get Whitten Urea nitrogen/Creatinine [Mass ratio] 8.9 mg/mg Normal [facility] Comment on above: Performed By: #### C MP #### [facility] [address] [place] [address] Dr. Get Whitten T3, TOTAL (TRIIODOTHYRONINE) on 11-28-2022 T3, TOTAL <20 Critically low 71-[address] [facility] Comment on above: Performed By: #### C VDTBH #### [facility] [address] [place] [address] Dr. Get Whitten AMMONIAon 11-27-2022 Ammonia (P) [Mass/Vol] ug/dL Critically low 11-32 [facility] Comment on above: Performed By: #### C MP #### [facility] [address] [place] [address] Dr. Get Whitten BNPon 11-27-2022 Natriuretic peptide B (Bld) [Mass/Vol] 50.0 pg/mL Normal <=900.0 [facility] Comment on above: Performed By: #### B CHIEF ORDER DISPATCHER, T7, CMP, TSH #### [facility] [address] [place] [address] Dr. Get Whitten CARDIAC ANA ADMITon 023 CK [Catalytic activity/Vol] 173 U/L Normal 39-308 [facility] Comment on above: Performed By: #### B CHIEF ORDER DISPATCHER, T7, CMP, TSH #### [facility] [address] [place] [address] Dr. Get Whitten CK.MB [Mass/Vol] 1.64 ng/mL Normal <=3.[address] [facility] Comment on above: Performed By: #### B CHIEF ORDER DISPATCHER, T7, CMP, TSH #### [facility] [address] [place] [address] Dr. Get Whitten HSTROP 4.3 pg/mL Normal 4.0-76.1 [facility] Comment on above: Result Comment: CUT- OFF POINTS HAVE BEEN ESTABLISHED BASED ON THE FOURTH UNIVERSAL DEFINITIONS OF MYOCARDIAL INFARCTION. THE UPPER REFERENCE LIMIT (URL) OF TROPONIN, DEFINED THE 99TH PERCENTILE OF cTnI DISTRIBUTION IN A REFERENCE POPULATION, HAS BEEN CONFIRMED THE DECISION THRESHOLD FOR VA DIAGNOSIS. Performed By: #### B CHIEF ORDER DISPATCHER, T7, CMP, TSH #### [facility] [address] [place] [address] Dr. Get Whitten RAFA 72 ng/mL Normal 16-96 [facility] Comment on above: Performed By: #### B CHIEF ORDER DISPATCHER, T7, CMP, TSH #### [facility] [address] [place] [address] Dr. Get Whitten CBC AUTO DIFFon 11-27-2022 BASO # 0.1 103/ul Normal 0.0-0.1 [facility] Comment on above: Performed By: #### C VDTBH #### [facility] [address] [place] [address] Dr. Get Whitten Basophils/100 WBC (Bld) 0.6 % Normal 0.2-2.0 [facility] Comment on above: Performed By: #### C VDTBH #### [facility] [address] [place] [address] Dr. Get Whitten EO # 0.0 103/ul Normal 0.0-0.7 [facility] Comment on above: Performed By: #### C VDTBH #### [facility] [address] [place] [address] Dr. Get Whitten Eosinophils/100 WBC (Bld) 0.4 % Critically low 0.9-7.0 [facility] Comment on above: Performed By: #### C VDTBH #### [facility] [address] [place] [address] Dr. Get Whitten Erythrocyte distribution width (RBC) [Ratio] 18.6 % Critically high 11.0-15.0 [facility] Comment on above: Performed By: #### C VDTBH #### [facility] [address] [place] [address] Dr. Get Whitten Hematocrit (Bld) [Volume fraction] 35.4 % Critically low 42.0-54.0 [facility] Comment on above: Performed By: #### C VDTBH #### [facility] [address] [place] [address] Dr. Get Whitten Hemoglobin (Bld) [Mass/Vol] 11.9 g/dL Critically low 14.0-18.0 [facility] Comment on above: Performed By: #### C VDTBH #### [facility] [address] [place] [address] Dr. Get Whitten IG # 0.28 10e3/ul Critically high 0.00-0.03 [facility] Comment on above: Performed By: #### C VDTBH #### [facility] [address] [place] [address] Dr. Get Whitten IG % 3.5 % Critically high 0.0-0.5 [facility] Comment on above: Performed By: #### C VDTBH #### [facility] [address] [place] [address] Dr. Get Whitten LYMPH # 3.3 103/ul Normal 1.2-3.8 [facility] Comment on above: Performed By: #### C VDTBH #### [facility] [address] [place] [address] Dr. Get Whitten Lymphocytes/100 WBC (Bld) 41.6 % Normal 20.5-60.0 [facility] Comment on above: Performed By: #### C VDTBH #### [facility] [address] [place] [address] Dr. Get Whitten MANUAL DIFF REQ NO Normal [facility] Comment on above: Performed By: #### C VDTBH #### [facility] [address] [place] [address] Dr. Get Whitten MCH (RBC) [Entitic mass] 35.1 pg Critically high 25.9-34.0 [facility] Comment on above: Performed By: #### C VDTBH #### [facility] [address] [place] [address] Dr. Get Whitten MCHC (RBC) [Mass/Vol] 33.6 g/dL Normal 29.9-35.2 [facility] Comment on above: Performed By: #### C VDTBH #### [facility] [address] [place] [address] Dr. Get Whitten MCV (RBC) [Entitic vol] 104.4 fL Critically high 80.0-94.0 [facility] Comment on above: Performed By: #### C VDTBH #### [facility] [address] [place] [address] Dr. Get Whitten MONO # 0.4 103/ul Normal 0.3-0.8 [facility] Comment on above: Performed By: #### C VDTBH #### [facility] [address] [place] [address] Dr. Get Whitten Monocytes/100 WBC (Bld) 5.0 % Normal 1.7-12.0 [facility] Comment on above: Performed By: #### C VDTBH #### [facility] [address] [place] [address] Dr. Get Whitten NEUT # 3.9 103/ul Normal 1.4-6.5 [facility] Comment on above: Performed By: #### C VDTBH #### [facility] [address] [place] [address] Dr. Get Whitten Neutrophils/100 WBC (Bld) 48.9 % Normal 43.0-75.0 [facility] Comment on above: Performed By: #### C VDTBH #### [facility] [address] [place] [address] Dr. Get Whitten Platelet mean volume (Bld) [Entitic vol] 9.5 fL Normal 9.5-13.5 [facility] Comment on above: Performed By: #### C VDTBH #### [facility] [address] [address] [address] Get Whitten PLT 182 103/ul Normal 150-450 [facility] Comment on above: Performed By: #### C VDTBH #### [facility] [address] [address] [address] Get Whitten RBC 3.39 106/ul Critically low 4.70-6.10 [facility] Comment on above: Performed By: #### C VDTBH #### [facility] [address] [address] [address] Get Whitten WBC 8.0 103/ul Normal 4.0-11.0 [facility] Comment on above: Performed By: #### C VDTBH #### [facility] [address] [address] [address] CSPINE WO CONon 3 CT CSPINE WO CON EXAMINATION: CT CSPI NE WO CON HISTORY: Unspecified fall ; fell striking head on ground; loss of consciousness COMPARISON: XR C-spine 10/23/2022 TECHNIQUE: Axial, Coronal, and Sagittal images were created without IV contrast. Dose reduction techniques were achieved by using automated exposure control and/or adjustment of mA and/or kV according to patient size and/or use of iterative reconstruction technique. FINDINGS: VERTEBRAL BODIES: Mechanical fusion of C5-6 via anterior plate and screws; no evidence of hardware fracture or loosening. FACET JOINTS: No disruption or abnormal widening. CERVICAL DISCS: C3-4 moderate disc space narrowing with posterior disc-osteophyte complex and uncovertebral joint spurring causing marked right and moderate left foramen narrowing. C4-5 mild disc space narrowing C5-6 intervertebral disc spacer. C6-7 moderate disc height reduction with mild bilateral foramen narrowing. CENTRAL CANAL: No evidence of hemorrhage. PARASPINAL AREA: No visible mass. IMPRESSION: 1. No appreciable acute abnormality. 2. Grossly stable surgical and degenerative changes, with multilevel foramen narrowing. Electronically authenticated by: SHEN SOSA Date: 2022-11-27 11:26 Normal [facility] CT STROKE HEAD WOon 11-28-19 CT STROKE HEAD WO EXAMINATION: CT STRO KE HEAD WO HISTORY: Unspecified fall ; fell striking head on ground; loss of consciousness COMPARISON: No relevant comparison available. TECHNIQUE: Axial CT images were obtained without IV contrast. Dose reduction techniques were achieved by using automated exposure control and/or adjustment of mA and/or kV according to patient size and/or use of iterative reconstruction technique. FINDINGS: BRAIN: No edema, hemorrhage, mass, acute infarction, or inappropriate atrophy. CSF SPACES: No hydrocephalus, subarachnoid hemorrhage, or mass. Appropriate for age. SKULL: No fracture, mass, or other significant visible lesion. SINUSES: No significant mucosal thickening or fluid on the limited views. ORBITS: No appreciable abnormality on the limited views. OTHER: Negative IMPRESSION: 1. No intracranial hemorrhage or appreciable acute abnormality. 2. No fracture of the calvarium or scalp hematoma. Findings discussed with Ese in the emergency department to be relayed to Dr. Alex. Electronically authenticated by: SHEN SOSA Date: 2022-11-27 11:16 Normal [facility] Covid-19 PCR (CVDTBH)on 11-13 SARS-CoV-2 (COVID-19) RNA ASHLEE+probe Ql (Unsp spec) Not detected Normal NOT DETECTED [facility] Comment on above: Result Comment: THIS TEST IS NOT APPROVED BY THE FDA. IT HAS BEEN AUTHORIZED FOR USE UNDER AN EMERGENCY USE AUTHORIZATION. Performed By: #### C MP #### [facility] [address] [place] [address] Dr. Get Whitten ETHANOL (BLD ALC)on 11-28-19 ALC NOTE NOTE: 80 mg/dl is th e legal limit for a blood alcohol level Normal [facility] Comment on above: Performed By: #### B CHIEF ORDER DISPATCHER, T7, CMP, TSH #### [facility] [address] [address] [address] Get Whitten Ethanol [Mass/Vol] mg/dL Normal [facility] Comment on above: Performed By: #### B CHIEF ORDER DISPATCHER, T7, CMP, TSH #### [facility] [address] [address] [address] Get Whitten MAGNESIUMon 11-27-2022 Magnesium [Mass/Vol] 2.3 mg/dL Normal 1.8-2.4 [facility] Comment on above: Performed By: #### B CHIEF ORDER DISPATCHER, T7, CMP, TSH #### [facility] [address] [address] [address] Get Whitten PROF 14(COMP METB)on 023 Albumin [Mass/Vol] 4.1 g/dL Normal 3.4-5.0 [facility] Comment on above: Performed By: #### B CHIEF ORDER DISPATCHER, T7, CMP, TSH #### [facility] [address] [place] [address] Dr. Get Whitten Albumin/Globulin [Mass ratio] 1.1 {ratio} Normal [facility] Comment on above: Performed By: #### B CHIEF ORDER DISPATCHER, T7, CMP, TSH #### [facility] [address] [place] [address] Dr. Get Whitten ALP [Catalytic activity/Vol] 36 U/L Critically low 46-116 [facility] Comment on above: Performed By: #### B CHIEF ORDER DISPATCHER, T7, CMP, TSH #### [facility] [address] [place] [address] Dr. Get Whitten ALT [Catalytic activity/Vol] 15 U/L Critically low 16-63 [facility] Comment on above: Performed By: #### B CHIEF ORDER DISPATCHER, T7, CMP, TSH #### [facility] [address] [address] [address] Get Whitten Anion gap [Moles/Vol] 15.0 mmol/L Normal [facility] Comment on above: Performed By: #### B CHIEF ORDER DISPATCHER, T7, CMP, TSH #### [facility] [address] [place] [address] Dr. Get Whitten AST [Catalytic activity/Vol] 13 U/L Critically low 15-37 [facility] Comment on above: Performed By: #### B CHIEF ORDER DISPATCHER, T7, CMP, TSH #### [facility] [address] [address] [address] Get Whitten Bilirubin [Mass/Vol] 0.3 mg/dL Normal 0.2-1.0 [facility] Comment on above: Performed By: #### B CHIEF ORDER DISPATCHER, T7, CMP, TSH #### [facility] [address] [place] [address] Dr. Get Whitten Calcium [Mass/Vol] 9.1 mg/dL Normal 8.5-10.1 [facility] Comment on above: Performed By: #### B CHIEF ORDER DISPATCHER, T7, CMP, TSH #### [facility] [address] [place] [address] Dr. Get Whitten Chloride [Moles/Vol] 101 mmol/L Normal 98-107 [facility] Comment on above: Performed By: #### B CHIEF ORDER DISPATCHER, T7, CMP, TSH #### [facility] [address] [place] [address] Dr. Get Whitten CO2 [Moles/Vol] 22.2 mmol/L Normal 21.0-32.0 [facility] Comment on above: Performed By: #### B CHIEF ORDER DISPATCHER, T7, CMP, TSH #### [facility] [address] [place] [address] Dr. Get Whitten Creatinine [Mass/Vol] 1.84 mg/dL Critically high 0.70-1.30 [facility] Comment on above: Performed By: #### B CHIEF ORDER DISPATCHER, T7, CMP, TSH #### [facility] [address] [place] [address] Dr. Get Whitten EGFR-AF INDONESIAN 46 mL/min/1.73m2 Critically low >=60 [facility] Comment on above: Performed By: #### B CHIEF ORDER DISPATCHER, T7, CMP, TSH #### [facility] [address] [place] [address] Dr. Get Whitten EGFR-NON AF INDONESIAN 38 mL/min/1.73m2 Critically low >=60 [facility] Comment on above: Performed By: #### B CHIEF ORDER DISPATCHER, T7, CMP, TSH #### [facility] [address] [place] [address] Dr. Get Whitten Globulin (S) [Mass/Vol] 3.6 g/dL Normal [facility] Comment on above: Performed By: #### B CHIEF ORDER DISPATCHER, T7, CMP, TSH #### [facility] [address] [place] [address] Dr. Get Whitten Glucose [Mass/Vol] 87 mg/dL Normal 74-106 [facility] Comment on above: Performed By: #### B CHIEF ORDER DISPATCHER, T7, CMP, TSH #### [facility] [address] [address] [address] Get Whitten Potassium [Moles/Vol] 4.2 mmol/L Normal 3.5-5.1 [facility] Comment on above: Performed By: #### B CHIEF ORDER DISPATCHER, T7, CMP, TSH #### [facility] [address] [address] [address] Get Whitten Protein [Mass/Vol] 7.7 g/dL Normal 6.4-8.2 [facility] Comment on above: Performed By: #### B CHIEF ORDER DISPATCHER, T7, CMP, TSH #### [facility] [address] [address] [address] Get Whitten Sodium [Moles/Vol] 134 mmol/L Critically low 136-145 [facility] Comment on above: Performed By: #### B CHIEF ORDER DISPATCHER, T7, CMP, TSH #### [facility] [address] [address] [address] Get Whitten Urea nitrogen [Mass/Vol] 14.0 mg/dL Normal 7.0-18.0 [facility] Comment on above: Performed By: #### B CHIEF ORDER DISPATCHER, T7, CMP, TSH #### [facility] [address] [address] [address] Get Whitten Urea nitrogen/Creatinine [Mass ratio] 7.6 mg/mg Normal [facility] Comment on above: Performed By: #### B CHIEF ORDER DISPATCHER, T7, CMP, TSH #### [facility] [address] [address] [address] Get Whitten PROTIMEon 11-27-2022 INR Coag (PPP) [Relative time] 0.98 {INR} Normal [facility] Comment on above: Performed By: #### B CHIEF ORDER DISPATCHER, T7, CMP, TSH #### [facility] [address] [address] [address] Get Whitten INR GUIDELINES SEE BELOW Normal [facility] Comment on above: Result Comment: JORGE RED INR: 2.0 - 3.0 CONDITIONS NOT LISTED BELOW 2.5 - 3.5 FOR PROSTHETIC HEART VALVE REPLACEMENT 2.5 - 3.5 RECURRENT THROMBOSIS Performed By: #### B CHIEF ORDER DISPATCHER, T7, CMP, TSH #### [facility] [address] [place] [address] Dr. Get Whitten PT Coag (PPP) [Time] 10.4 s Normal 9.0-11.6 [facility] Comment on above: Performed By: #### B CHIEF ORDER DISPATCHER, T7, CMP, TSH #### [facility] [address] [address] [address] Get Whitten PTTon 11-27-2022 aPTT Coag (Bld) [Time] 30.4 s Normal 22.3-36.2 [facility] Comment on above: Performed By: #### B CHIEF ORDER DISPATCHER, T7, CMP, TSH #### [facility] [address] [place] [address] Dr. Get Whitten SYMPTOMATIC COVID-19 ANTIGEN on 11-27-2022 EUA Statement SEE BELOW Normal [facility] Comment on above: Result Comment: This test has not been FDA cleared or approved, but has been authorized by the FDA under an Emergency Use Authorization (EUA) for use by authorized laboratories certified under CLIA that meet the requirements to perform moderate or high complexity testing. This test has been authorized only for the detection of proteins from SARS-CoV-2, not for any other viruses or pathogens. The emergency use of this test is authorized for the duration of the declaration that circumstances exist justifying the authorization of emergency use of in vitro diagnostic tests for detection and/or diagnosis of Covid-19 under section 564(b)(1) of the Act, 21 U.S.C. 360bbb-3(b)(1), unless the declaration is terminated or authorization is revoked sooner. Performed By: #### C MP, HSTROPN, BNP #### [facility] [address] [place] [address] Dr. Get Whitten SARS-CoV-2 (COVID-19) RNA ASHLEE+probe Ql (Unsp spec) Negative Normal NEGATIVE [facility] Comment on above: Performed By: #### C MP, HSTROPN, BNP #### [facility] [address] [place], [place] [address] Dr. Get Whitten T4on 11-27-2022 T4 [Mass/Vol] 0.90 ug/dL Critically low 4.50-12.10 [facility] Comment on above: Performed By: #### B CHIEF ORDER DISPATCHER, T7, CMP, TSH #### [facility] [id number] Get Whitten TROPONIN, HIGH SENSITIVITYon 11-27-2022 HSTROP 4.1 pg/mL Normal 4.0-76.1 [facility] Comment on above: Result Comment: CUT- OFF POINTS HAVE BEEN ESTABLISHED BASED ON THE FOURTH UNIVERSAL DEFINITIONS OF MYOCARDIAL INFARCTION. THE UPPER REFERENCE LIMIT (URL) OF TROPONIN, DEFINED THE 99TH PERCENTILE OF cTnI DISTRIBUTION IN A REFERENCE POPULATION, HAS BEEN CONFIRMED THE DECISION THRESHOLD FOR [facility] DIAGNOSIS. Performed By: #### B CHIEF ORDER DISPATCHER, T7, CMP, TSH #### [facility] [address] [address] [address] Get Whitten TSHon 11-27-2022 TSH 134.470 uIU/mL Critically high 0.358-3.740 [facility] Comment on above: Performed By: #### B CHIEF ORDER DISPATCHER, T7, CMP, TSH #### [facility] [id number] Get Whitten XR CHEST 1 Von 11-27-2022 XR CHEST 1 V EXAMINATION: XR CHES T 1 V HISTORY: Unspecified fall COMPARISON: XR chest 03/29/2022 FINDINGS: LUNGS: Slightly elevated left hemidiaphragm, similar to prior study. Minimal blunting of left lateral costal phrenic angle, nonspecific. VASCULATURE: No increased pulmonary vasculature. PLEURA: No pneumothorax. CARDIAC: No cardiomegaly or cardiac silhouette abnormality. MEDIASTINUM: No visible mass or adenopathy. BONES: No fracture or visible bone lesion. OTHER: Negative. IMPRESSION: 1. Slight blunting of left lateral phrenic angle; secondary to mildly elevated diaphragm and atelectasis versus small pleural effusion. Electronically authenticated by: SHEN SOSA Date: 2022-11-27 11:19 Normal [facility] XR CSPINE MIN 4 VIEWSon 10-14 XR CSPINE MIN 4 VIEWS EXAMINATION: XR CSPINE MIN 4 VIEWS HISTORY: Cervical radiculopathy COMPARISON: No relevant comparison available. FINDINGS: BONES: Mechanical fusion of C5-6 via anterior plate and screws; no hardware fracture or loosening. No bone fracture or spondylolisthesis. Mild degenerative facet arthropathy C5-6, C6-7. DISC SPACES: Moderate narrowing C3-4, C6-7. Osseous fusion C5-6. PARASPINOUS: Negative. No paraspinous abnormality is seen. OTHER: Negative. IMPRESSION: 1. Multilevel moderate degenerative disc disease and mild degenerative facet arthropathy. 2. Mechanical fusion C5-6. 3. No appreciable acute abnormality. Electronically authenticated by: SHEN SOSA Date: 2022-10-24 10:22 Normal [facility] XR LSPINE MIN 4 VIEWSon 10-14 XR LSPINE MIN 4 VIEWS EXAMINATION: XR LSPINE MIN 4 VIEWS HISTORY: Lumbar radiculopathy ; acute lumbar pain after falling COMPARISON: No relevant comparison available. FINDINGS: BONES: Posterior mechanical fusion L4-5 via bilateral pedicle screws and rods; no evidence of hardware fracture or loosening. L4 posterior decompression. 5 mm retrolisthesis of L3 on 4. Mild degenerative facet arthropathy L3-4 through L5-S1. No bone fracture or lesion. DISC SPACES: Moderate narrowing L3-4. Intervertebral spacer at L4-5. PARASPINOUS: Negative. No paraspinous abnormality is seen. OTHER: Negative. IMPRESSION: 1. L4-5 posterior mechanical fusion, intervertebral disc spacer, and L4 posterior decompression. No prior studies for comparison. 2. L3-4 grade 1 retrolisthesis, moderate disc space narrowing, and mild degenerative facet arthropathy. 3. No appreciable acute abnormality. Electronically authenticated by: SHEN SOSA Date: 2022-10-24 10:19 Normal [facility] H PYLORI ANTIBODY IGGon 10-0 H. PYLORI IGG ABS 0.07 Index Value Normal 0.00-0.79 [facility] Comment on above: Result Comment: Nega tive <0.80 Equivocal 0.80 - 0.89 Positive >0.89 Performed By: #### B CHIEF ORDER DISPATCHER, T7, CMP, TSH #### [facility] [address] [place] [address] Dr. Get Whitten BNPon 04-15-2022 Natriuretic peptide B (Bld) [Mass/Vol] 138.0 pg/mL Normal <=900.0 [facility] Comment on above: Performed By: #### B CHIEF ORDER DISPATCHER, T7, CMP, TSH #### [facility] [address] [place] [address] Dr. Get Whitten CBC AUTO DIFFon 04-15-2022 BASO # 0.0 103/ul Normal 0.0-0.1 [facility] Comment on above: Performed By: #### C MP, HSTROPN, BNP #### [facility] [address] [place] [address] Dr. Get Whitten Basophils/100 WBC (Bld) 0.4 % Normal 0.2-2.0 [facility] Comment on above: Performed By: #### C MP, HSTROPN, BNP #### [facility] [address] [place] [address] Dr. Get Whitten EO # 0.0 103/ul Normal 0.0-0.7 [facility] Comment on above: Performed By: #### C MP, HSTROPN, BNP #### [facility] [address] [place] [address] Dr. Get Whitten Eosinophils/100 WBC (Bld) 0.3 % Critically low 0.9-7.0 [facility] Comment on above: Performed By: #### C MP, HSTROPN, BNP #### [facility] [address] [place] [address] Dr. Get Whitten Erythrocyte distribution width (RBC) [Ratio] 13.2 % Normal 11.0-15.0 [facility] Comment on above: Performed By: #### C MP, HSTROPN, BNP #### [facility] [address] [place] [address] Dr. Get Whitten Hematocrit (Bld) [Volume fraction] 37.9 % Critically low 42.0-54.0 [facility] Comment on above: Performed By: #### C MP, HSTROPN, BNP #### [facility] [address] [place] [address] Dr. Get Whitten Hemoglobin (Bld) [Mass/Vol] 13.1 g/dL Critically low 14.0-18.0 [facility] Comment on above: Performed By: #### C MP, HSTROPN, BNP #### [facility] [address] [place] [address] Dr. Get Whitten IG # 0.24 10e3/ul Critically high 0.00-0.03 [facility] Comment on above: Performed By: #### C MP, HSTROPN, BNP #### [facility] [address] [place] [address] Dr. Get Whitten IG % 3.1 % Critically high 0.0-0.5 [facility] Comment on above: Performed By: #### C MP, HSTROPN, BNP #### [facility] [address] [place] [address] Dr. Get Whitten LYMPH # 3.1 103/ul Normal 1.2-3.8 [facility] Comment on above: Performed By: #### C MP, HSTROPN, BNP #### [facility] [address] [place] [address] Dr. Get Whitten Lymphocytes/100 WBC (Bld) 40.3 % Normal 20.5-60.0 [facility] Comment on above: Performed By: #### C MP, HSTROPN, BNP #### [facility] [address] [place] [address] Dr. Get Whitten MANUAL DIFF REQ NO Normal [facility] Comment on above: Performed By: #### C MP, HSTROPN, BNP #### [facility] [address] [place] [address] Dr. Get Whitten MCH (RBC) [Entitic mass] 36.1 pg Critically high 25.9-34.0 [facility] Comment on above: Performed By: #### C MP, HSTROPN, BNP #### [facility] [address] [place] [address] Dr. Get Whitten MCHC (RBC) [Mass/Vol] 34.6 g/dL Normal 29.9-35.2 [facility] Comment on above: Performed By: #### C MP, HSTROPN, BNP #### [facility] [address] [place] [address] Dr. Get Whitten MCV (RBC) [Entitic vol] 104.4 fL Critically high 80.0-94.0 [facility] Comment on above: Performed By: #### C MP, HSTROPN, BNP #### [facility] [address] [place] [address] Dr. Get Whitten MONO # 0.7 103/ul Normal 0.3-0.8 [facility] Comment on above: Performed By: #### C MP, HSTROPN, BNP #### [facility] [address] [place] [address] Dr. Get Whitten Monocytes/100 WBC (Bld) 9.4 % Normal 1.7-12.0 [facility] Comment on above: Performed By: #### C MP, HSTROPN, BNP #### [facility] [address] [place] [address] Dr. Get Whitten NEUT # 3.6 103/ul Normal 1.4-6.5 [facility] Comment on above: Performed By: #### C MP, HSTROPN, BNP #### [facility] [address] [place] [address] Dr. Get Whitten Neutrophils/100 WBC (Bld) 46.5 % Normal 43.0-75.0 [facility] Comment on above: Performed By: #### C MP, HSTROPN, BNP #### [facility] [address] [place] [address] Dr. Get Whitten Platelet mean volume (Bld) [Entitic vol] 8.5 fL Critically low 9.5-13.5 [facility] Comment on above: Performed By: #### C MP, HSTROPN, BNP #### [facility] [address] [place] [address] Dr. Get Whitten PLT 128 103/ul Critically low 150-450 [facility] Comment on above: Performed By: #### C MP, HSTROPN, BNP #### [facility] [address] [place] [address] Dr. Get Whitten RBC 3.63 106/ul Critically low 4.70-6.10 [facility] Comment on above: Performed By: #### C MP, HSTROPN, BNP #### [facility] [address] [place] [address] Dr. Get Whitten WBC 7.7 103/ul Normal 4.0-11.0 [facility] Comment on above: Performed By: #### C MP, HSTROPN, BNP #### [facility] [address] [place] [address] Dr. Get Whitten FREE THYROXINE INDEX T7on FTI 0.22 Critically low 1.30-4.[address] [facility] Comment on above: Performed By: #### B CHIEF ORDER DISPATCHER, T7, CMP, TSH #### [facility] [address] [place] [address] Dr. Get Whitten T3U 37.0 % Normal 33.0-40.0 [facility] Comment on above: Performed By: #### B CHIEF ORDER DISPATCHER, T7, CMP, TSH #### [facility] [address] [place] [address] Dr. Get Whitten T4 [Mass/Vol] 0.60 ug/dL Critically low 4.50-12.10 [facility] Comment on above: Performed By: #### B CHIEF ORDER DISPATCHER, T7, CMP, TSH #### [facility] [address] [place] [address] Dr. Get Whitten IRONon 04-15-2022 Iron [Mass/Vol] 74.0 ug/dL Normal 65.0-175.0 [facility] Comment on above: Performed By: #### C VDTBH #### [facility] [address] [place] [address] Dr. Get Whitten PROF 14(COMP METB)on 022 Albumin [Mass/Vol] 3.6 g/dL Normal 3.4-5.0 [facility] Comment on above: Performed By: #### B CHIEF ORDER DISPATCHER, T7, CMP, TSH #### [facility] [address] [place] [address] Dr. Get Whitten Albumin/Globulin [Mass ratio] 1.3 {ratio} Normal [facility] Comment on above: Performed By: #### B CHIEF ORDER DISPATCHER, T7, CMP, TSH #### [facility] [address] [place] [address] Dr. Get Whitten ALP [Catalytic activity/Vol] 41 U/L Critically low 46-116 [facility] Comment on above: Performed By: #### B CHIEF ORDER DISPATCHER, T7, CMP, TSH #### [facility] [address] [place] [address] Dr. Get Whitten ALT [Catalytic activity/Vol] 111 U/L Critically high 16-63 [facility] Comment on above: Performed By: #### B CHIEF ORDER DISPATCHER, T7, CMP, TSH #### [facility] [address] [place] [address] Dr. Get Whitten Anion gap [Moles/Vol] 10.3 mmol/L Normal [facility] Comment on above: Performed By: #### B CHIEF ORDER DISPATCHER, T7, CMP, TSH #### [facility] [address] [place] [address] Dr. Get Whitten AST [Catalytic activity/Vol] 30 U/L Normal 15-37 [facility] Comment on above: Performed By: #### B CHIEF ORDER DISPATCHER, T7, CMP, TSH #### [facility] [address] [place] [address] Dr. Get Whitten Bilirubin [Mass/Vol] 0.3 mg/dL Normal 0.2-1.0 [facility] Comment on above: Performed By: #### B CHIEF ORDER DISPATCHER, T7, CMP, TSH #### [facility] [address] [place] [address] Dr. Get Whitten Calcium [Mass/Vol] 8.1 mg/dL Critically low 8.5-10.1 [facility] Comment on above: Performed By: #### B CHIEF ORDER DISPATCHER, T7, CMP, TSH #### [facility] [address] [address] [address] Get Whitten Chloride [Moles/Vol] 98 mmol/L Normal 98-107 [facility] Comment on above: Performed By: #### B CHIEF ORDER DISPATCHER, T7, CMP, TSH #### [facility] [address] [place] [address] Dr. Get Whitten CO2 [Moles/Vol] 24.7 mmol/L Normal 21.0-32.0 [facility] Comment on above: Performed By: #### B CHIEF ORDER DISPATCHER, T7, CMP, TSH #### [facility] [address] [place] [address] Dr. Get Whitten Creatinine [Mass/Vol] 1.24 mg/dL Normal 0.70-1.30 [facility] Comment on above: Performed By: #### B CHIEF ORDER DISPATCHER, T7, CMP, TSH #### [facility] [address] [place] [address] Dr. Get Whitten EGFR-AF INDONESIAN >60 Normal >=[address] [facility] Comment on above: Performed By: #### B CHIEF ORDER DISPATCHER, T7, CMP, TSH #### [facility] [address] [place] [address] Dr. Get Whitten EGFR-NON AF INDONESIAN =60 Normal >=60 [facility] Comment on above: Performed By: #### B CHIEF ORDER DISPATCHER, T7, CMP, TSH #### [facility] [address] [place] [address] Dr. Get Whitten Globulin (S) [Mass/Vol] 2.7 g/dL Normal [facility] Comment on above: Performed By: #### B CHIEF ORDER DISPATCHER, T7, CMP, TSH #### [facility] [address] [place] [address] Dr. Get Whitten Glucose [Mass/Vol] 107 mg/dL Critically high 74-106 [facility] Comment on above: Performed By: #### B CHIEF ORDER DISPATCHER, T7, CMP, TSH #### [facility] [address] [place] [address] Dr. Get Whitten Potassium [Moles/Vol] 4.0 mmol/L Normal 3.5-5.1 [facility] Comment on above: Performed By: #### B CHIEF ORDER DISPATCHER, T7, CMP, TSH #### [facility] [address] [place] [address] Dr. Get Whitten Protein [Mass/Vol] 6.3 g/dL Critically low 6.4-8.2 Th [facility] Comment on above: Performed By: #### B CHIEF ORDER DISPATCHER, T7, CMP, TSH #### [facility] [address] [place] [address] Dr. Get Whitten Sodium [Moles/Vol] 129 mmol/L Critically low 136-145 Th [facility] Comment on above: Performed By: #### B CHIEF ORDER DISPATCHER, T7, CMP, TSH #### [facility] [address] [place] [address] Dr. Get Whitten Urea nitrogen [Mass/Vol] 12.0 mg/dL Normal 7.0-18.0 [facility] Comment on above: Performed By: #### B CHIEF ORDER DISPATCHER, T7, CMP, TSH #### [facility] [address] [place] [address] Dr. Get Whitten Urea nitrogen/Creatinine [Mass ratio] 9.7 mg/mg Normal [facility] Comment on above: Performed By: #### B CHIEF ORDER DISPATCHER, T7, CMP, TSH #### [facility] [address] [place] [address] Dr. Get Whitten TSHon 04-15-2022 TSH 76.327 uIU/mL Critically high 0.358-3.740 [facility] Comment on above: Performed By: #### B CHIEF ORDER DISPATCHER, T7, CMP, TSH #### [facility] [address] [place] [address] Dr. Get Whitten BNPon 03-31-2022 Natriuretic peptide B (Bld) [Mass/Vol] 349.0 pg/mL Normal <=900.0 [facility] Comment on above: Performed By: #### B CHIEF ORDER DISPATCHER, T7, CMP, TSH #### [facility] [address] [place] [address] Dr. Get Whitten CBC W MANUAL DIFFon 03-31-20 ATYPICAL LYMPH # 0.26 103/ul Normal [facility] Comment on above: Performed By: #### C MP #### [facility] [address] [place] [address] Dr. Get Whitten ATYPICAL LYMPH % 2 % Normal [facility] Comment on above: Performed By: #### C MP #### [facility] [address] [place] [address] Dr. Get Whitten BAND # 0.0 103/ul Normal 0.0-0.3 [facility] Comment on above: Performed By: #### C MP #### [facility] [address] [place] [address] Dr. Get Whitten BAND % 0 % Normal 0-5 [facility] Comment on above: Performed By: #### C MP #### [facility] [address] [place] [address] Dr. Get Whitten BASOM # 0.00 103/ul Normal 0.00-0.10 [facility] Comment on above: Performed By: #### C MP #### [facility] [address] [place] [address] Dr. Get Whitten BASOM % 0.0 % Critically low 0.2-2.[address] [facility] Comment on above: Performed By: #### C MP #### [facility] [address] [place] [address] Dr. Get Whitten BLAST # Normal [facility] Comment on above: Performed By: #### C MP #### [facility] [address] [place] [address] Dr. Get Whitten BLAST % Normal [facility] Comment on above: Performed By: #### C MP #### [facility] [address] [place] [address] Dr. Get Whitten CORRECTED WBC Normal 4.0-11.0 [facility] Comment on above: Performed By: #### C MP #### [facility] [address] [place] [address] Dr. Get Whitten EOS # 0.00 103/ul Normal 0.00-0.70 [facility] Comment on above: Performed By: #### C MP #### [facility] [address] [place] [address] Dr. Get Whitten EOS% 0.0 % Critically low 0.9-7.[address] [facility] Comment on above: Performed By: #### C MP #### [facility] [address] [address] [address] Get Whitten HCT 38.3 % Critically low 42.0-54.[address] [facility] Comment on above: Performed By: #### C MP #### [facility] [address] [address] [address] Get Whitten HGB 13.7 g/dl Critically low 14.0-18.[address] [facility] Comment on above: Performed By: #### C MP #### [facility] [address] [address] [address] Get Whitten LYMPHM # 1.43 103/ul Normal 1.20-3.80 [facility] Comment on above: Performed By: #### C MP #### [facility] [address] [address] [address] Get Whitten LYMPHM% 11.0 % Critically low 20.5-60.[address] [facility] Comment on above: Performed By: #### C MP #### [facility] [address] [address] [address] Get Whitten MCH 36.3 pg Critically high 25.9-34.0 [facility] Comment on above: Performed By: #### C MP #### [facility] [address] [address] [address] Get Whitten MCHC 35.8 g/dl Critically high 29.9-35.2 [facility] Comment on above: Performed By: #### C MP #### [facility] [address] [address] [address] Get Whitten MCV 101.6 fL Critically high 80.0-94.0 [facility] Comment on above: Performed By: #### C MP #### [facility] [address] [address] [address] Get Whitten METAMYELOCYTE # Normal [facility] Comment on above: Performed By: #### C MP #### [facility] [address] [address] [address] Get Whitten METAMYELOCYTE % Normal [facility] Comment on above: Performed By: #### C MP #### [facility] [address] [address] [address] Get Whitten MONOM# 0.78 103/ul Normal 0.30-0.80 [facility] Comment on above: Performed By: #### C MP #### [facility] [address] [place] [address] Dr. Get Whitten MONOM% 6.0 % Normal 1.7-12.0 [facility] Comment on above: Performed By: #### C MP #### [facility] [address] [place] [address] Dr. Get Whitten MPV 8.7 fL Critically low 9.5-13.[address] [facility] Comment on above: Performed By: #### C MP #### [facility] [address] [place] [address] Dr. Get Whitten MYELOCYTE # Normal [facility] Comment on above: Performed By: #### C MP #### [facility] [address] [place] [address] Dr. Get Whitten MYELOCYTE % Normal [facility] Comment on above: Performed By: #### C MP #### [facility] [address] [place] [address] Dr. Get Whitten NRBC Normal [facility] Comment on above: Performed By: #### C MP #### [facility] [address] [place] [address] Dr. Get Whitten PLT 225 103/ul Normal 150-450 [facility] Comment on above: Performed By: #### C MP #### [facility] [address] [place] [address] Dr. Get Whitten RBC 3.77 106/ul Critically low 4.70-6.10 [facility] Comment on above: Performed By: #### C MP #### [facility] [address] [address] [address] Get Whitten RDW 12.7 % Normal 11.0-15.0 [facility] Comment on above: Performed By: #### C MP #### [facility] [address] [address] [address] Get Whitten SEG # 10.53 103/ul Critically high 1.40-6.50 [facility] Comment on above: Performed By: #### C MP #### [facility] [address] [address] [address] Get Whitten SEG % 81.0 % Critically high 43.0-75.0 [facility] Comment on above: Performed By: #### C MP #### [facility] [address] [place] [address] Dr. Get Whitten WBC 13.0 103/ul Critically high 4.0-11.0 [facility] Comment on above: Performed By: #### C MP #### [facility] [address] [place] [address] Dr. Get Whitten CRPon 03-31-2022 CRP [Mass/Vol] mg/L Normal <=1.[address] [facility] Comment on above: Performed By: #### B CHIEF ORDER DISPATCHER, T7, CMP, TSH #### [facility] [address] [place] [address] Dr. Get Whitten PROF 14(COMP METB)on 022 Albumin [Mass/Vol] 3.3 g/dL Critically low 3.4-5.0 [facility] Comment on above: Performed By: #### B CHIEF ORDER DISPATCHER, T7, CMP, TSH #### [facility] [address] [place] [address] Dr. Get Whitten Albumin/Globulin [Mass ratio] 1.2 {ratio} Normal [facility] Comment on above: Performed By: #### B CHIEF ORDER DISPATCHER, T7, CMP, TSH #### [facility] [address] [place] [address] Dr. Get Whitten ALP [Catalytic activity/Vol] 48 U/L Normal 46-116 [facility] Comment on above: Performed By: #### B CHIEF ORDER DISPATCHER, T7, CMP, TSH #### [facility] [address] [address] [address] Get Whitten ALT [Catalytic activity/Vol] 130 U/L Critically high 16-63 [facility] Comment on above: Performed By: #### B CHIEF ORDER DISPATCHER, T7, CMP, TSH #### [facility] [address] [place] [address] Dr. Get Whitten Anion gap [Moles/Vol] 11.9 mmol/L Normal [facility] Comment on above: Performed By: #### B CHIEF ORDER DISPATCHER, T7, CMP, TSH #### [facility] [address] [place] [address] Dr. Get Whitten AST [Catalytic activity/Vol] 50 U/L Critically high 15-37 [facility] Comment on above: Performed By: #### B CHIEF ORDER DISPATCHER, T7, CMP, TSH #### [facility] [address] [place] [address] Dr. Get Whitten Bilirubin [Mass/Vol] 0.5 mg/dL Normal 0.2-1.0 [facility] Comment on above: Performed By: #### B CHIEF ORDER DISPATCHER, T7, CMP, TSH #### [facility] [address] [address] [address] Get Whitten Calcium [Mass/Vol] 7.9 mg/dL Critically low 8.5-10.1 Th e [facility] Comment on above: Performed By: #### B CHIEF ORDER DISPATCHER, T7, CMP, TSH #### [facility] [address] [address] [address] Get Whitten Chloride [Moles/Vol] 99 mmol/L Normal 98-107 [facility] Comment on above: Performed By: #### B CHIEF ORDER DISPATCHER, T7, CMP, TSH #### [facility] [address] [place] [address] Dr. Get Whitten CO2 [Moles/Vol] 18.4 mmol/L Critically low 21.0-32.0 [facility] Comment on above: Performed By: #### B CHIEF ORDER DISPATCHER, T7, CMP, TSH #### [facility] [address] [place] [address] Dr. Get Whitten Creatinine [Mass/Vol] 0.96 mg/dL Normal 0.70-1.30 [facility] Comment on above: Performed By: #### B CHIEF ORDER DISPATCHER, T7, CMP, TSH #### [facility] [address] [place] [address] Dr. Get Whitten EGFR-AF INDONESIAN >60 Normal >=60 [facility] Comment on above: Performed By: #### B CHIEF ORDER DISPATCHER, T7, CMP, TSH #### [facility] [address] [address] [address] Get Whitten EGFR-NON AF INDONESIAN >60 Normal >=60 [facility] Comment on above: Performed By: #### B CHIEF ORDER DISPATCHER, T7, CMP, TSH #### [facility] [address] [place] [address] Dr. Get Whitten Globulin (S) [Mass/Vol] 2.8 g/dL Normal [facility] Comment on above: Performed By: #### B CHIEF ORDER DISPATCHER, T7, CMP, TSH #### [facility] [address] [place] [address] Dr. Get Whitten Glucose [Mass/Vol] 166 mg/dL Critically high 74-106 T [facility] Comment on above: Performed By: #### B CHIEF ORDER DISPATCHER, T7, CMP, TSH #### [facility] [address] [place] [address] Dr. Get Whitten Potassium [Moles/Vol] 3.3 mmol/L Critically low 3.5-5.1 [facility] Comment on above: Performed By: #### B CHIEF ORDER DISPATCHER, T7, CMP, TSH #### [facility] [address] [place] [address] Dr. Get Whitten Protein [Mass/Vol] 6.1 g/dL Critically low 6.4-8.2 [facility] Comment on above: Performed By: #### B CHIEF ORDER DISPATCHER, T7, CMP, TSH #### [facility] [address] [place] [address] Dr. Get Whitten Sodium [Moles/Vol] 126 mmol/L Critically low 136-145 Th [facility] Comment on above: Performed By: #### B CHIEF ORDER DISPATCHER, T7, CMP, TSH #### [facility] [address] [place] [address] Dr. Get Whitten Urea nitrogen [Mass/Vol] 8.0 mg/dL Normal 7.0-18.0 [facility] Comment on above: Performed By: #### B CHIEF ORDER DISPATCHER, T7, CMP, TSH #### [facility] [address] [place] [address] Dr. Get Whitten Urea nitrogen/Creatinine [Mass ratio] 8.3 mg/mg Normal [facility] Comment on above: Performed By: #### B CHIEF ORDER DISPATCHER, T7, CMP, TSH #### [facility] [address] [place] [address] Dr. Get Whitten BNPon 03-30-2022 Natriuretic peptide B (Bld) [Mass/Vol] 274.0 pg/mL Normal <=900.0 [facility] Comment on above: Performed By: #### C MP, HSTROPN, BNP #### [facility] [address] [place] [address] Dr. Get Whitten CARDIAC ANA 3-6on 2 CK [Catalytic activity/Vol] 48 U/L Normal 39-308 [facility] Comment on above: Performed By: #### B CHIEF ORDER DISPATCHER, T7, CMP, TSH #### [facility] [address] [place] [address] Dr. Get Whitten CK.MB [Mass/Vol] 1.62 ng/mL Normal <=3.[address] [facility] Comment on above: Performed By: #### B CHIEF ORDER DISPATCHER, T7, CMP, TSH #### [facility] [address] [place] [address] Dr. Get Whitten HSTROP 15.7 pg/mL Normal 4.0-76.1 [facility] Comment on above: Result Comment: CUT- OFF POINTS HAVE BEEN ESTABLISHED BASED ON THE FOURTH UNIVERSAL DEFINITIONS OF MYOCARDIAL INFARCTION. THE UPPER REFERENCE LIMIT (URL) OF TROPONIN, DEFINED THE 99TH PERCENTILE OF cTnI DISTRIBUTION IN A REFERENCE POPULATION, HAS BEEN CONFIRMED THE DECISION THRESHOLD FOR [facility] DIAGNOSIS. Performed By: #### B CHIEF ORDER DISPATCHER, T7, CMP, TSH #### [facility] [address] [place] [address] Dr. Get Whitten CBC AUTO DIFFon 03-30-2022 BASO # 0.1 103/ul Normal 0.0-0.1 [facility] Comment on above: Performed By: #### C MP #### [facility] [address] [address] [address] Get Whitten Basophils/100 WBC (Bld) 0.8 % Normal 0.2-2.0 [facility] Comment on above: Performed By: #### C MP #### [facility] [address] [address] [address] Get Whitten EO # 0.6 103/ul Normal 0.0-0.7 [facility] Comment on above: Performed By: #### C MP #### [facility] [address] [address] [address] Get Whitten Eosinophils/100 WBC (Bld) 5.2 % Normal 0.9-7.0 [facility] Comment on above: Performed By: #### C MP #### [facility] [address] [address] [address] Get Whitten Erythrocyte distribution width (RBC) [Ratio] 12.7 % Normal 11.0-15.0 [facility] Comment on above: Performed By: #### C MP #### [facility] [address] [address] [address] Get Whitten Hematocrit (Bld) [Volume fraction] 41.7 % Critically low 42.0-54.0 [facility] Comment on above: Performed By: #### C MP #### [facility] [address] [address] [address] Get Whitten Hemoglobin (Bld) [Mass/Vol] 14.9 g/dL Normal 14.0-18.0 [facility] Comment on above: Performed By: #### C MP #### [facility] [address] [address] [address] Get Whitten IG # 0.48 10e3/ul Critically high 0.00-0.03 [facility] Comment on above: Performed By: #### C MP #### [facility] [address] [address] [address] Get Whitten IG % 4.1 % Critically high 0.0-0.5 [facility] Comment on above: Performed By: #### C MP #### [facility] [address] [address] [address] Get Whitten LYMPH # 1.4 103/ul Normal 1.2-3.8 [facility] Comment on above: Performed By: #### C MP #### [facility] [address] [place] [address] Dr. Get Whitten Lymphocytes/100 WBC (Bld) 11.9 % Critically low 20.5-60.0 [facility] Comment on above: Performed By: #### C MP #### [facility] [address] [place] [address] Dr. Get Whitten MANUAL DIFF REQ NO Normal [facility] Comment on above: Performed By: #### C MP #### [facility] [address] [address] [address] Get Whitten MCH (RBC) [Entitic mass] 36.8 pg Critically high 25.9-34.0 [facility] Comment on above: Performed By: #### C MP #### [facility] [address] [place] [address] Dr. Get Whitten MCHC (RBC) [Mass/Vol] 35.7 g/dL Critically high 29.9-35.2 [facility] Comment on above: Performed By: #### C MP #### [facility] [address] [place] [address] Dr. Get Whitten MCV (RBC) [Entitic vol] 103.0 fL Critically high 80.0-94.0 [facility] Comment on above: Performed By: #### C MP #### [facility] [address] [place] [address] Dr. Get Whitten MONO # 0.5 103/ul Normal 0.3-0.8 [facility] Comment on above: Performed By: #### C MP #### [facility] [address] [place], [place] [id number] Dr. Get Whitten Monocytes/100 WBC (Bld) 4.3 % Normal 1.7-12.0 [facility] Comment on above: Performed By: #### C MP #### [facility] [address] [place] [address] Dr. Get Whitten NEUT # 8.6 103/ul Critically high 1.4-6.5 [facility] Comment on above: Performed By: #### C MP #### [facility] [address] [place] [address] Dr. Get Whitten Neutrophils/100 WBC (Bld) 73.7 % Normal 43.0-75.0 [facility] Comment on above: Performed By: #### C MP #### [facility] [address] [place] [address] Dr. Get Whitten Platelet mean volume (Bld) [Entitic vol] 9.0 fL Critically low 9.5-13.5 [facility] Comment on above: Performed By: #### C MP #### [facility] [address] [place] [address] Dr. Get Whitten PLT 244 103/ul Normal 150-450 [facility] Comment on above: Performed By: #### C MP #### [facility] [address] [place] [address] Dr. Get Whitten RBC 4.05 106/ul Critically low 4.70-6.10 [facility] Comment on above: Performed By: #### C MP #### [facility] [address] [place] [address] Dr. Get Whitten WBC 11.7 103/ul Critically high 4.0-11.[address] [facility] Comment on above: Performed By: #### C MP #### [facility] [address] [place] [address] Dr. Get Whitten CRPon 03-30-2022 CRP 0.3 mg/dL Normal <=1.0 [facility] Comment on above: Performed By: #### C MP, HSTROPN, BNP #### [facility] [address] [place] [address] Dr. Get Whitten CULTURE SPUTUMon 03-30-2022 CULTURE SPUTUM Culture Observations : METHICILLIN RESISTANT STAPH AUREUS ISOLATED. PLEASE FOLLOW APPROPRIATE ISOLATION PROCEDURES. Culture Observations: Gave MRSA result to Diana Matos RN on 03/30 @ 0862 Culture Observations: Growth of mold-like organism, sending to [facility] for ID Isolate 1 Staphylococcus aureus Moderate growth of Isolate 2 Aspergillus fumigatus Light growth of ORGANISM 1 Staphylococcus aureus ANTIBIOTIC M.I.C RX STATUS Beta-Lactamase Pos POS F Cefoxitin Screen Pos POS F Benzylpenicillin >=0.5 R F Ciprofloxacin >=8 R F Levofloxacin >=8 R F Inducible Clindamycin Resistance Neg NEG F Erythromycin >=8 R F Clindamycin >=8 R F Quinupristin/Dalfopris tin <=0.25 S F Linezolid 1 S F Vancomycin <=0.5 S F Tetracycline >=16 R F Rifampicin <=0.5 S F Trimethoprim/Sulfameth oxazole <=10 S F Oxacillin >=4 R F Normal [facility] Comment on above: Performed By: #### B CHIEF ORDER DISPATCHER, T7, CMP, TSH #### [facility] [address] [address] [address] Get Whitten ECHO LIMITED STUDYon 022 ECHO LIMITED STUDY Patient: REHAN POOLE Exam Date: 03/30/2022 : 1965 Gender:M Ordering : DR PEE GUADALUPE . Admission #: [id number] Family : Order #: [id number] CLICK HERE TO VIEW EXAM ECHOCARDIOGRAM REPORT PROCEDURE: CARDIO PULMONARY ECHO LIMITED STUDY INDICATIONS: Covid positive with chest pain COMPARISON: None. DESCRIPTION: Limited ECHOCARDIOGRAM Real-time transthoracic echocardiography with 2D and M-mode performed. QUALITY: Technical quality was limited. LEFT VENTRICLE: Normal chamber size. Mild concentric left ventricular hypertrophy. Global left ventricular systolic function is difficult to assess due to poor sound transmission but appears normal. Visual estimation of left ventricular ejection fraction is 55% LV EF: DIASTOLIC: ATRIAL SEPTUM: LEFT ATRIUM: RIGHT ATRIUM: RIGHT VENTRICLE: Normal chamber size. Normal systolic function. TRICUSPID VALVE: Grossly normal. MITRAL VALVE: Normal mobility and thickness. AORTIC VALVE: Not well visualized. AORTIC ROOT: Normal diameter and appearance. PULMONIC VALVE: Not well visualized. PERICARDIUM: No evidence of pericardial effusion. IVC: Not well visualized. PLEURA: CONCLUSION: 1. Left ventricular systolic function appears normal. LVEF is 55%. 2. Normal right ventricular systolic function. 3. No pericardial effusion. 4. Technically difficult study with poor sound transmission. 5. Limited study performed with no Doppler interrogation as requested. Adult Echocardiography Procedure Report Left Ventricle LVEDD (3.7 - 5.6 cm): 4.06 cm LVESD (2.2 - 4.0 cm): 2.86 cm LVIVS thickness (0.6 - 1.2 cm): 1.43 cm LVPW thickness (0.5 - 1.0 cm): 1.28 cm Left Ventricular Ejection Fraction: 55% Left Atrium Mitral Valve Right Ventricle Aorta AO Root Diam: 2.74 cm Aortic Valve Tricuspid Valve Pulmonic Valve Right Atrium Dictated by: Arik Dominguez M.D. on 03/31/2022 at 19:38 Approved by: Arik Dominguez M.D. on 03/31/2022 at 19:42 Normal [facility] PROF 14(COMP METB)on 022 Albumin [Mass/Vol] 3.5 g/dL Normal 3.4-5.0 [facility] Comment on above: Performed By: #### C MP, HSTROPN, BNP #### [facility] [address] [place] [address] Dr. Get Whitten Albumin/Globulin [Mass ratio] 1.2 {ratio} Normal [facility] Comment on above: Performed By: #### C MP, HSTROPN, BNP #### [facility] [address] [address] [address] Get Whitten ALP [Catalytic activity/Vol] 58 U/L Normal 46-116 [facility] Comment on above: Performed By: #### C MP, HSTROPN, BNP #### [facility] [address] [address] [address] Get Whitten ALT [Catalytic activity/Vol] 108 U/L Critically high 16-63 [facility] Comment on above: Performed By: #### C MP, HSTROPN, BNP #### [facility] [address] [address] [address] Get Whitten Anion gap [Moles/Vol] 12.6 mmol/L Normal [facility] Comment on above: Performed By: #### C MP, HSTROPN, BNP #### [facility] [address] [address] [address] Get Whitten AST [Catalytic activity/Vol] 33 U/L Normal 15-37 [facility] Comment on above: Performed By: #### C MP, HSTROPN, BNP #### [facility] [address] [address] [address] Get Whitten Bilirubin [Mass/Vol] 0.6 mg/dL Normal 0.2-1.0 [facility] Comment on above: Performed By: #### C MP, HSTROPN, BNP #### [facility] [address] [place] [address] Dr. Get Whitten Calcium [Mass/Vol] 8.0 mg/dL Critically low 8.5-10.1 Th [facility] Comment on above: Performed By: #### C MP, HSTROPN, BNP #### [facility] Laboratory [address] [address] [address] Get Whitten Chloride [Moles/Vol] 99 mmol/L Normal 98-107 [facility] Comment on above: Performed By: #### C MP, HSTROPN, BNP #### [facility] [address] [address] [address] Get Whitten CO2 [Moles/Vol] 22.0 mmol/L Normal 21.0-32.[address] [facility] Comment on above: Performed By: #### C MP, HSTROPN, BNP #### [facility] [address] [address] [address] Get Whitten Creatinine [Mass/Vol] 1.12 mg/dL Normal 0.70-1.30 [facility] Comment on above: Performed By: #### C MP, HSTROPN, BNP #### [facility] [address] [address] [address] Get Whitten EGFR-AF INDONESIAN >60 Normal >=60 [facility] Comment on above: Performed By: #### C MP, HSTROPN, BNP #### [facility] [address] [place] [address] Dr. Get Whitten EGFR-NON AF INDONESIAN >60 Normal >=60 [facility] Comment on above: Performed By: #### C MP, HSTROPN, BNP #### [facility] [address] [place] [address] Dr. Get Whitten Globulin (S) [Mass/Vol] 3.0 g/dL Normal [facility] Comment on above: Performed By: #### C MP, HSTROPN, BNP #### [facility] [address] [place] [address] Dr. Get Whitten Glucose [Mass/Vol] 135 mg/dL Critically high 74-106 [facility] Comment on above: Performed By: #### C MP, HSTROPN, BNP #### [facility] [address] [place] [address] Dr. Get Whitten Potassium [Moles/Vol] 3.6 mmol/L Normal 3.5-5.1 [facility] Comment on above: Performed By: #### C MP, HSTROPN, BNP #### [facility] [address] [place] [address] Dr. Get Whitten Protein [Mass/Vol] 6.5 g/dL Normal 6.4-8.2 [facility] Comment on above: Performed By: #### C MP, HSTROPN, BNP #### [facility] [address] [place] [address] Dr. Get Whitten Sodium [Moles/Vol] 130 mmol/L Critically low 136-145 [facility] Comment on above: Performed By: #### C MP, HSTROPN, BNP #### [facility] [address] [place] [address] Dr. Get Whitten Urea nitrogen [Mass/Vol] 7.0 mg/dL Normal 7.0-18.0 [facility] Comment on above: Performed By: #### C MP, HSTROPN, BNP #### [facility] [address] [address] [address] Get Whitten Urea nitrogen/Creatinine [Mass ratio] 6.2 mg/mg Normal [facility] Comment on above: Performed By: #### C MP, HSTROPN, BNP #### [facility] [address] [place] [address] Dr. Get Whitten CARDIAC ANA 3-6on 2 CK [Catalytic activity/Vol] 51 U/L Normal 39-308 [facility] Comment on above: Performed By: #### C VDTBH #### [facility] [address] [place] [address] Dr. Get Whitten CK.MB [Mass/Vol] 1.89 ng/mL Normal <=3.[address] [facility] Comment on above: Performed By: #### C VDTBH #### [facility] [address] [place] [address] Dr. Get Whitten HSTROP 14.4 pg/mL Normal 4.0-76.1 [facility] Comment on above: Result Comment: CUT- OFF POINTS HAVE BEEN ESTABLISHED BASED ON THE FOURTH UNIVERSAL DEFINITIONS OF MYOCARDIAL INFARCTION. THE UPPER REFERENCE LIMIT (URL) OF TROPONIN, DEFINED THE 99TH PERCENTILE OF cTnI DISTRIBUTION IN A REFERENCE POPULATION, HAS BEEN CONFIRMED THE DECISION THRESHOLD FOR [facility] DIAGNOSIS. Performed By: #### C VDTBH #### [facility] [address] [place] [address] Dr. Get Whitten CARDIAC ANA ADMITon 022 CK [Catalytic activity/Vol] 128 U/L Normal 39-308 [facility] Comment on above: Performed By: #### C MP, HSTROPN, BNP #### [facility] [address] [address] [address] Get Whitten CK.MB [Mass/Vol] 2.22 ng/mL Normal <=3.[address] [facility] Comment on above: Performed By: #### C MP, HSTROPN, BNP #### [facility] [address] [place] [address] Dr. Get Whitten HSTROP 11.2 pg/mL Normal 4.0-76.1 [facility] Comment on above: Result Comment: CUT- OFF POINTS HAVE BEEN ESTABLISHED BASED ON THE FOURTH UNIVERSAL DEFINITIONS OF MYOCARDIAL INFARCTION. THE UPPER REFERENCE LIMIT (URL) OF TROPONIN, DEFINED THE 99TH PERCENTILE OF cTnI DISTRIBUTION IN A REFERENCE POPULATION, HAS BEEN CONFIRMED THE DECISION THRESHOLD FOR VA DIAGNOSIS. Performed By: #### C MP, HSTROPN, BNP #### [facility] [address] [place] [address] Dr. Get Whitten RAFA 40 ng/mL Normal 16-96 [facility] Comment on above: Performed By: #### C MP, HSTROPN, BNP #### [facility] [address] [place] [address] Dr. Get Whitten CBC AUTO DIFFon 03-29-2022 BASO # 0.1 103/ul Normal 0.0-0.1 [facility] Comment on above: Performed By: #### O SMOU #### [facility] [address] [place] [address] Dr. Get Whitten Basophils/100 WBC (Bld) 0.4 % Normal 0.2-2.0 [facility] Comment on above: Performed By: #### O SMOU #### [facility] [address] [place] [address] Dr. Get Whitten EO # 0.0 103/ul Normal 0.0-0.7 [facility] Comment on above: Performed By: #### O SMOU #### [facility] [address] [place] [address] Dr. Get Whitten Eosinophils/100 WBC (Bld) 0.1 % Critically low 0.9-7.0 [facility] Comment on above: Performed By: #### O SMOU #### [facility] [address] [place] [address] Dr. Get Whitten Erythrocyte distribution width (RBC) [Ratio] 12.8 % Normal 11.0-15.0 [facility] Comment on above: Performed By: #### O SMOU #### [facility] [address] [place] [address] Dr. Get Whitten Hematocrit (Bld) [Volume fraction] 42.1 % Normal 42.0-54.0 [facility] Comment on above: Performed By: #### O SMOU #### [facility] [address] [place] [address] Dr. Get Whitten Hemoglobin (Bld) [Mass/Vol] 15.3 g/dL Normal 14.0-18.0 [facility] Comment on above: Performed By: #### O SMOU #### [facility] [address] [place] [address] Dr. Get Whitten IG # 0.49 10e3/ul Critically high 0.00-0.03 [facility] Comment on above: Performed By: #### O SMOU #### [facility] [address] [place] [address] Dr. Get Whitten IG % 3.6 % Critically high 0.0-0.5 [facility] Comment on above: Performed By: #### O SMOU #### [facility] [address] [place] [address] Dr. Get Whitten LYMPH # 2.2 103/ul Normal 1.2-3.8 [facility] Comment on above: Performed By: #### O SMOU #### [facility] [address] [place] [address] Dr. Get Whitten Lymphocytes/100 WBC (Bld) 16.1 % Critically low 20.5-60.0 [facility] Comment on above: Performed By: #### O SMOU #### [facility] [address] [place] [address] Dr. Get Whitten MANUAL DIFF REQ NO Normal [facility] Comment on above: Performed By: #### O SMOU #### [facility] [address] [place] [address] Dr. Get Whitten MCH (RBC) [Entitic mass] 36.3 pg Critically high 25.9-34.0 [facility] Comment on above: Performed By: #### O SMOU #### [facility] [address] [place] [address] Dr. Get Whitten MCHC (RBC) [Mass/Vol] 36.3 g/dL Critically high 29.9-35.2 [facility] Comment on above: Performed By: #### O SMOU #### [facility] [address] [place] [address] Dr. Get Whitten MCV (RBC) [Entitic vol] 100.0 fL Critically high 80.0-94.0 [facility] Comment on above: Performed By: #### O SMOU #### [facility] [address] [place] [address] Dr. Get Whitten MONO # 1.1 103/ul Critically high 0.3-0.8 [facility] Comment on above: Performed By: #### O SMOU #### [facility] [address] [place] [address] Dr. Get Whitten Monocytes/100 WBC (Bld) 8.3 % Normal 1.7-12.0 [facility] Comment on above: Performed By: #### O SMOU #### [facility] [address] [place] [address] Dr. Get Whitten NEUT # 9.6 103/ul Critically high 1.4-6.5 [facility] Comment on above: Performed By: #### O SMOU #### [facility] [address] [place] [address] Dr. Get Whitten Neutrophils/100 WBC (Bld) 71.5 % Normal 43.0-75.0 [facility] Comment on above: Performed By: #### O SMOU #### [facility] [address] [place] [address] Dr. Get Whitten Platelet mean volume (Bld) [Entitic vol] 9.1 fL Critically low 9.5-13.5 [facility] Comment on above: Performed By: #### O SMOU #### [facility] [address] [place] [address] Dr. Get Whitten PLT 228 103/ul Normal 150-450 [facility] Comment on above: Performed By: #### O SMOU #### [facility] [address] [place] [address] Dr. Get Whitten RBC 4.21 106/ul Critically low 4.70-6.10 [facility] Comment on above: Performed By: #### O SMOU #### [facility] [address] [address] [address] Get Whitten WBC 13.4 103/ul Critically high 4.0-11.0 [facility] Comment on above: Performed By: #### O SMOU #### [facility] [address] [place] [address] Dr. Get Whitten [facility] SARS-CoV-2 (COVID-19) RNA ASHLEE+probe Ql (Unsp spec) Detected Critically abnormal NOT DETECTED [facility] Comment on above: Result Comment: This test is not yet approved or cleared by the [place] FDA. When there are no FDA-approved or cleared tests available, and other criteria are met, FDA can make tests available under an emergency access mechanism called an Emergency Use Authorization (EUA). The EUA for this test is supported by the Tele [employer] Executive of Health and Human Service's declaration that circumstances exist to justify the emergency use of in vitro diagnostics for the detection and/or diagnosis of the virus that causes COVID-19. This EUA will remain in effect for the duration of the COVID-19 declaration justifying emergency of IVDs, unless it is terminated or revoked by the FDA (after which the test may no longer be used). Performed By: #### C VDTBH #### [facility] [address] [place] [address] Dr. Get Whitten OSMOLALITYon 03-29-2022 Osmolality [Osmolality] 257 mosm/kg Critically low 275-295 [facility] Comment on above: Performed By: #### C VDTBH #### [facility] [address] [place] [address] Dr. Get Whitten OSMOLALITY URINEon Osmolality, Urine 251 mOsmol/kg Normal [facility] Comment on above: Result Comment: 24 h r : 300 - 900 Random: 50 - 1400 After 12hr fluid restriction: >850 Performed By: #### O SMOU #### [facility] [address] [place] [address] Dr. Get Whitten PROF CHEM 8 (BAS METB)on Anion gap [Moles/Vol] 17.1 mmol/L Normal [facility] Comment on above: Performed By: #### C MP, HSTROPN, BNP #### [facility] [address] [place] [address] Dr. Get Whitten Calcium [Mass/Vol] 8.4 mg/dL Critically low 8.5-10.1 [facility] Comment on above: Performed By: #### C MP, HSTROPN, BNP #### [facility] [address] [place] [address] Dr. Get Whitten Chloride [Moles/Vol] 98 mmol/L Normal 98-107 [facility] Comment on above: Performed By: #### C MP, HSTROPN, BNP #### [facility] [address] [place] [address] Dr. Get Whitten CO2 [Moles/Vol] 18.1 mmol/L Critically low 21.0-32.0 [facility] Comment on above: Performed By: #### C MP, HSTROPN, BNP #### [facility] [address] [place] [address] Dr. Get Whitten Creatinine [Mass/Vol] 0.98 mg/dL Normal 0.70-1.30 [facility] Comment on above: Performed By: #### C MP, HSTROPN, BNP #### [facility] [address] [place] [address] Dr. Get Whitten EGFR-AF INDONESIAN >60 Normal >=60 [facility] Comment on above: Performed By: #### C MP, HSTROPN, BNP #### [facility] [address] [place] [address] Dr. Get Whitten EGFR-NON AF INDONESIAN >60 Normal >=60 [facility] Comment on above: Performed By: #### C MP, HSTROPN, BNP #### [facility] [address] [place] [address] Dr. Get Whitten Glucose [Mass/Vol] 94 mg/dL Normal 74-106 [facility] Comment on above: Performed By: #### C FILOMENA HSTROPRenée, BNP #### [facility] [address] [place] [address] Dr. Get Whitten Potassium [Moles/Vol] 4.2 mmol/L Normal 3.5-5.1 [facility] Comment on above: Performed By: #### C FILOMENA HSTROPN, BNP #### [facility] [address] [place] [address] Dr. Get Whitten Sodium [Moles/Vol] 129 mmol/L Critically low 136-145 [facility] Comment on above: Performed By: #### C CHON BUTTTROPN, BNP #### [facility] [address] [place] [address] Dr. Get Whitten Urea nitrogen [Mass/Vol] 8.0 mg/dL Normal 7.0-18.0 [facility] Comment on above: Performed By: #### C FILOMENA HSTROPN, BNP #### [facility] [address] [place] [address] Dr. Get Whitten Urea nitrogen/Creatinine [Mass ratio] 8.2 mg/mg Normal [facility] Comment on above: Performed By: #### C CHON BUTTTROPN, BNP #### [facility] [address] [place] [address] Dr. Get Whitten XR CHEST 1 Von 03-29-2022 XR CHEST 1 V EXAM: XR CHEST 1 V a t 1801 hours HISTORY: SHORTNESS OF BREATH COMPARISON: 03/26/2022 TECHNIQUE: AP upright portable chest x-ray FINDINGS: The heart is not enlarged and the vasculature is not distended. No acute infiltrate, effusion or pneumothorax is identified. The osseous structures are grossly intact. IMPRESSION: No acute infiltrate or evidence of cardiac decompensation. The overall appearance of the chest is unchanged. Electronically authenticated by: GARETH ROMERO Date: 2022-03-29 18:30 Normal [facility] BNPon 03-28-2022 Natriuretic peptide B (Bld) [Mass/Vol] 401.0 pg/mL Normal <=900.0 [facility] Comment on above: Performed By: #### B CHIEF ORDER DISPATCHER, T7, CMP, TSH #### [facility] [address] [address] [address] Get Whitten CBC W MANUAL DIFFon 03-28-20 22 ATYPICAL LYMPH # Normal [facility] Comment on above: Performed By: #### B CHIEF ORDER DISPATCHER, T7, CMP, TSH #### [facility] [address] [address] [address] Get Whitten ATYPICAL LYMPH % Normal [facility] Comment on above: Performed By: #### B CHIEF ORDER DISPATCHER, T7, CMP, TSH #### [facility] [address] [address] [address] Get Whitten BAND # 0.3 103/ul Normal 0.0-0.3 [facility] Comment on above: Performed By: #### B CHIEF ORDER DISPATCHER, T7, CMP, TSH #### [facility] [address] [place] [address] Dr. Get Whitten BAND % 2 % Normal 0-5 [facility] Comment on above: Performed By: #### B CHIEF ORDER DISPATCHER, T7, CMP, TSH #### [facility] [address] [address] [address] Get Whitten BASOM # 0.00 103/ul Normal 0.00-0.10 [facility] Comment on above: Performed By: #### B CHIEF ORDER DISPATCHER, T7, CMP, TSH #### [facility] [address] [address] [address] Get Whitten BASOM % 0.0 % Critically low 0.2-2.[address] [facility] Comment on above: Performed By: #### B CHIEF ORDER DISPATCHER, T7, CMP, TSH #### [facility] [address] [address] [address] Get Whitten BLAST # Normal [facility] Comment on above: Performed By: #### B CHIEF ORDER DISPATCHER, T7, CMP, TSH #### [facility] [address] [address] [address] Get Whitten BLAST % Normal [facility] Comment on above: Performed By: #### B CHIEF ORDER DISPATCHER, T7, CMP, TSH #### [facility] [address] [address] [address] Get Whitten CORRECTED WBC Normal 4.0-11.0 [facility] Comment on above: Performed By: #### B CHIEF ORDER DISPATCHER, T7, CMP, TSH #### [facility] [address] [place] [address] Dr. Get Whitten EOS # 0.00 103/ul Normal 0.00-0.70 [facility] Comment on above: Performed By: #### B CHIEF ORDER DISPATCHER, T7, CMP, TSH #### [facility] [address] [place] [address] Dr. Get Whitten EOS% 0.0 % Critically low 0.9-7.0 [facility] Comment on above: Performed By: #### B CHIEF ORDER DISPATCHER, T7, CMP, TSH #### [facility] [address] [place] [address] Dr. Get Whitten HCT 36.3 % Critically low 42.0-54.0 [facility] Comment on above: Performed By: #### B CHIEF ORDER DISPATCHER, T7, CMP, TSH #### [facility] [address] [place] [address] Dr. Get Whitten HGB 12.9 g/dl Critically low 14.0-18.0 [facility] Comment on above: Performed By: #### B CHIEF ORDER DISPATCHER, T7, CMP, TSH #### [facility] [address] [place] [address] Dr. Get Whitten HYPERSEG NEUT SLIGHT Normal [facility] Comment on above: Performed By: #### B CHIEF ORDER DISPATCHER, T7, CMP, TSH #### [facility] [address] [place] [address] Dr. Get Whitten LYMPHM # 0.89 103/ul Critically low 1.20-3.80 [facility] Comment on above: Performed By: #### B CHIEF ORDER DISPATCHER, T7, CMP, TSH #### [facility] [address] [place] [address] Dr. Get Whitten LYMPHM% 7.0 % Critically low 20.5-60.0 [facility] Comment on above: Performed By: #### B CHIEF ORDER DISPATCHER, T7, CMP, TSH #### [facility] [address] [address] [address] Gte Whitten MCH 36.5 pg Critically high 25.9-34.0 [facility] Comment on above: Performed By: #### B CHIEF ORDER DISPATCHER, T7, CMP, TSH #### [facility] [address] [address] [address] Get Whitten MCHC 35.5 g/dl Critically high 29.9-35.2 [facility] Comment on above: Performed By: #### B CHIEF ORDER DISPATCHER, T7, CMP, TSH #### [facility] [address] [address] [address] Get Whitten MCV 102.8 fL Critically high 80.0-94.0 [facility] Comment on above: Performed By: #### B CHIEF ORDER DISPATCHER, T7, CMP, TSH #### [facility] [address] [place] [address] Dr. Get Whitten METAMYELOCYTE # Normal [facility] Comment on above: Performed By: #### B CHIEF ORDER DISPATCHER, T7, CMP, TSH #### [facility] [address] [place] [address] Dr. Get Whitten METAMYELOCYTE % Normal [facility] Comment on above: Performed By: #### B CHIEF ORDER DISPATCHER, T7, CMP, TSH #### [facility] [address] [address] [address] Get Whitten MONOM# 1.02 103/ul Critically high 0.30-0.[address] [facility] Comment on above: Performed By: #### B CHIEF ORDER DISPATCHER, T7, CMP, TSH #### [facility] [address] [address] [address] Get Whitten MONOM% 8.0 % Normal 1.7-12.0 [facility] Comment on above: Performed By: #### B CHIEF ORDER DISPATCHER, T7, CMP, TSH #### [facility] [address] [address] [address] Get Whitten MPV 9.1 fL Critically low 9.5-13.[address] [facility] Comment on above: Performed By: #### B CHIEF ORDER DISPATCHER, T7, CMP, TSH #### [facility] [address] [address] [address] Get Whitten MYELOCYTE # Normal [facility] Comment on above: Performed By: #### B CHIEF ORDER DISPATCHER, T7, CMP, TSH #### [facility] [address] [address] [address] Get Whitten MYELOCYTE % Normal [facility] Comment on above: Performed By: #### B CHIEF ORDER DISPATCHER, T7, CMP, TSH #### [facility] [address] [address] [address] Get Whitten NRBC Normal [facility] Comment on above: Performed By: #### B CHIEF ORDER DISPATCHER, T7, CMP, TSH #### [facility] [address] [place] [address] Dr. Get Whitten PLT 181 103/ul Normal 150-450 [facility] Comment on above: Performed By: #### B CHIEF ORDER DISPATCHER, T7, CMP, TSH #### [facility] [address] [address] [address] Get Whitten RBC 3.53 106/ul Critically low 4.70-6.10 [facility] Comment on above: Performed By: #### B CHIEF ORDER DISPATCHER, T7, CMP, TSH #### [facility] [address] [place] [address] Dr. Get Whitten RDW 12.7 % Normal 11.0-15.0 [facility] Comment on above: Performed By: #### B CHIEF ORDER DISPATCHER, T7, CMP, TSH #### [facility] [address] [address] [address] Get Whitten SEG # 10.54 103/ul Critically high 1.40-6.50 [facility] Comment on above: Performed By: #### B CHIEF ORDER DISPATCHER, T7, CMP, TSH #### [facility] [address] [place] [address] Dr. Get Whitten SEG % 83.0 % Critically high 43.0-75.0 [facility] Comment on above: Performed By: #### B CHIEF ORDER DISPATCHER, T7, CMP, TSH #### [facility] [address] [place] [address] Dr. Get Whitten WBC 12.7 103/ul Critically high 4.0-11.0 [facility] Comment on above: Performed By: #### B CHIEF ORDER DISPATCHER, T7, CMP, TSH #### [facility] [address] [address] [address] Get Whitten PROF 14(COMP METB)on 022 Albumin [Mass/Vol] 3.0 g/dL Critically low 3.4-5.0 [facility] Comment on above: Performed By: #### B CHIEF ORDER DISPATCHER, T7, CMP, TSH #### [facility] [address] [address] [address] Get Whitten Albumin/Globulin [Mass ratio] 1.2 {ratio} Normal [facility] Comment on above: Performed By: #### B CHIEF ORDER DISPATCHER, T7, CMP, TSH #### [facility] [address] [place] [address] Dr. Get Whitten ALP [Catalytic activity/Vol] 39 U/L Critically low 46-116 [facility] Comment on above: Performed By: #### B CHIEF ORDER DISPATCHER, T7, CMP, TSH #### [facility] [address] [address] [address] Get Whitten ALT [Catalytic activity/Vol] 94 U/L Critically high 16-63 [facility] Comment on above: Performed By: #### B CHIEF ORDER DISPATCHER, T7, CMP, TSH #### [facility] [address] [address] [address] Get Whitten Anion gap [Moles/Vol] 11.4 mmol/L Normal [facility] Comment on above: Performed By: #### B CHIEF ORDER DISPATCHER, T7, CMP, TSH #### [facility] [address] [address] [address] Get Whitten AST [Catalytic activity/Vol] 37 U/L Normal 15-37 [facility] Comment on above: Performed By: #### B CHIEF ORDER DISPATCHER, T7, CMP, TSH #### [facility] [address] [address] [address] Get Whitten Bilirubin [Mass/Vol] 0.4 mg/dL Normal 0.2-1.0 [facility] Comment on above: Performed By: #### B CHIEF ORDER DISPATCHER, T7, CMP, TSH #### [facility] [address] [place] [address] Dr. Get Whitten Calcium [Mass/Vol] 7.9 mg/dL Critically low 8.5-10.1 Th [facility] Comment on above: Performed By: #### B CHIEF ORDER DISPATCHER, T7, CMP, TSH #### [facility] [address] [place] [address] Dr. Get Whitten Chloride [Moles/Vol] 102 mmol/L Normal 98-107 [facility] [facility] Comment on above: Performed By: #### B CHIEF ORDER DISPATCHER, T7, CMP, TSH #### [facility] [address] [place] [address] Dr. Get Whitten CO2 [Moles/Vol] 21.0 mmol/L Normal 21.0-32.0 [facility] Comment on above: Performed By: #### B CHIEF ORDER DISPATCHER, T7, CMP, TSH #### [facility] [address] [place] [address] Dr. Get Whitten Creatinine [Mass/Vol] 1.07 mg/dL Normal 0.70-1.30 [facility] Comment on above: Performed By: #### B CHIEF ORDER DISPATCHER, T7, CMP, TSH #### [facility] [address] [place] [address] Dr. Get Whitten EGFR-AF INDONESIAN >86 Normal >=[address] [facility] Comment on above: Performed By: #### B CHIEF ORDER DISPATCHER, T7, CMP, TSH #### [facility] [address] [place] [address] Dr. Get Whitten EGFR-NON AF INDONESIAN >60 Normal >=60 [facility] Comment on above: Performed By: #### B CHIEF ORDER DISPATCHER, T7, CMP, TSH #### [facility] [address] [place] [address] Dr. Get Whitten Globulin (S) [Mass/Vol] 2.6 g/dL Normal [facility] Comment on above: Performed By: #### B CHIEF ORDER DISPATCHER, T7, CMP, TSH #### [facility] [address] [place] [address] Dr. Get Whtiten Glucose [Mass/Vol] 132 mg/dL Critically high 74-106 [facility] Comment on above: Performed By: #### B CHIEF ORDER DISPATCHER, T7, CMP, TSH #### [facility] [address] [place] [address] Dr. Get Whitten Potassium [Moles/Vol] 3.4 mmol/L Critically low 3.5-5.1 [facility] Comment on above: Performed By: #### B CHIEF ORDER DISPATCHER, T7, CMP, TSH #### [facility] [address] [place] [address] Dr. Get Whitten Protein [Mass/Vol] 5.6 g/dL Critically low 6.4-8.2 [facility] Comment on above: Performed By: #### B CHIEF ORDER DISPATCHER, T7, CMP, TSH #### [facility] [address] [place] [address] Dr. Get Whitten Sodium [Moles/Vol] 131 mmol/L Critically low 136-145 [facility] Comment on above: Performed By: #### B CHIEF ORDER DISPATCHER, T7, CMP, TSH #### [facility] [address] [place] [address] Dr. Get Whitten Urea nitrogen [Mass/Vol] 16.0 mg/dL Normal 7.0-18.0 [facility] Comment on above: Performed By: #### B CHIEF ORDER DISPATCHER, T7, CMP, TSH #### [facility] [address] [place] [address] Dr. Get Whitten Urea nitrogen/Creatinine [Mass ratio] 15.0 mg/mg Normal [facility] Comment on above: Performed By: #### B CHIEF ORDER DISPATCHER, T7, CMP, TSH #### [facility] [address] [place] [address] Dr. Get Whitten T3, TOTAL (TRIIODOTHYRONINE) on 03-28-2022 T3, TOTAL <20 Critically low 71-[address] [facility] Comment on above: Performed By: #### C MP, HSTROPN, BNP #### [facility] [address] [place] [address] Dr. Get Whitten T4 [facility]on 03-28-2022 T4 [Mass/Vol] 0.7 ug/dL Invalid Interpretation Code 4.5-12.0 [facility] Comment on above: Performed By: #### C VDTBH #### [facility] [address] [place] [address] Dr. Get Whitten BNPon 03-27-2022 Natriuretic peptide B (Bld) [Mass/Vol] 340.0 pg/mL Normal <=900.0 [facility] Comment on above: Performed By: #### B CHIEF ORDER DISPATCHER, T7, CMP, TSH #### [facility] [address] [place] [address] Dr. Get Whitten CBC AUTO DIFFon 03-27-2022 BASO # 0.0 103/ul Normal 0.0-0.1 [facility] Comment on above: Performed By: #### C MP, HSTROPN, BNP #### [facility] [address] [place] [address] Dr. Get Whitten Basophils/100 WBC (Bld) 0.1 % Critically low 0.2-2.0 [facility] Comment on above: Performed By: #### C MP, HSTROPN, BNP #### [facility] [address] [place] [address] Dr. Get Whitten EO # 0.0 103/ul Normal 0.0-0.7 [facility] Comment on above: Performed By: #### C MP, HSTROPN, BNP #### [facility] [address] [place] [address] Dr. Get Whitten Eosinophils/100 WBC (Bld) 0.1 % Critically low 0.9-7.0 [facility] Comment on above: Performed By: #### C MP, HSTROPN, BNP #### [facility] [address] [place] [address] Dr. Get Whitten Erythrocyte distribution width (RBC) [Ratio] 12.7 % Normal 11.0-15.0 [facility] Comment on above: Performed By: #### C MP, HSTROPN, BNP #### [facility] [address] [place] [address] Dr. Get Whitten Hematocrit (Bld) [Volume fraction] 38.7 % Critically low 42.0-54.0 [facility] Comment on above: Performed By: #### C MP, HSTROPN, BNP #### [facility] [address] [place] [address] Dr. Get Whitten Hemoglobin (Bld) [Mass/Vol] 13.6 g/dL Critically low 14.0-18.0 [facility] Comment on above: Performed By: #### C MP, HSTROPN, BNP #### [facility] [address] [address] [address] Get Whitten IG # 1.95 10e3/ul Critically high 0.00-0.03 [facility] Comment on above: Performed By: #### C MP, HSTROPN, BNP #### [facility] [address] [place] [address] Dr. Get Whitten IG % 16.0 % Critically high 0.0-0.5 [facility] Comment on above: Performed By: #### C MP, HSTROPN, BNP #### [facility] [address] [place] [address] Dr. Get Whitten LYMPH # 1.7 103/ul Normal 1.2-3.8 [facility] Comment on above: Performed By: #### C MP, HSTROPN, BNP #### [facility] [address] [place] [address] Dr. Get Whitten Lymphocytes/100 WBC (Bld) 13.8 % Critically low 20.5-60.0 [facility] Comment on above: Performed By: #### C MP, HSTROPN, BNP #### [facility] [address] [place] [address] Dr. Get Whitten MANUAL DIFF REQ NO Normal [facility] Comment on above: Performed By: #### C MP, HSTROPN, BNP #### [facility] [address] [place] [address] Dr. Get Whitten MCH (RBC) [Entitic mass] 36.2 pg Critically high 25.9-34.0 [facility] Comment on above: Performed By: #### C MP, HSTROPN, BNP #### [facility] [address] [place] [address] Dr. Get Whitten MCHC (RBC) [Mass/Vol] 35.1 g/dL Normal 29.9-35.2 [facility] Comment on above: Performed By: #### C MP, HSTROPN, BNP #### [facility] [address] [place] [address] Dr. Get Whitten MCV (RBC) [Entitic vol] 102.9 fL Critically high 80.0-94.0 [facility] Comment on above: Performed By: #### C MP, HSTROPN, BNP #### [facility] [address] [place] [address] Dr. Get Whitten MONO # 0.4 103/ul Normal 0.3-0.8 [facility] Comment on above: Performed By: #### C MP, HSTROPN, BNP #### [facility] [address] [place] [address] Dr. Get Whitten Monocytes/100 WBC (Bld) 3.3 % Normal 1.7-12.0 [facility] Comment on above: Performed By: #### C MP, HSTROPN, BNP #### [facility] [address] [place] [address] Dr. Get Whitten NEUT # 8.2 103/ul Critically high 1.4-6.5 [facility] Comment on above: Performed By: #### C MP, HSTROPN, BNP #### [facility] [address] [place] [address] Dr. Get Whitten Neutrophils/100 WBC (Bld) 66.7 % Normal 43.0-75.0 [facility] Comment on above: Performed By: #### C MP, HSTROPN, BNP #### [facility] [address] [place] [address] Dr. Get Whitten Platelet mean volume (Bld) [Entitic vol] 9.2 fL Critically low 9.5-13.5 [facility] Comment on above: Performed By: #### C MP, HSTROPN, BNP #### [facility] [address] [address] [address] Get Whitten PLT 167 103/ul Normal 150-450 [facility] Comment on above: Performed By: #### C MP, HSTROPN, BNP #### [facility] [address] [place] [address] Dr. Get Whitten RBC 3.76 106/ul Critically low 4.70-6.10 [facility] Comment on above: Performed By: #### C MP, HSTROPN, BNP #### [facility] [address] [place] [address] Dr. Get Whitten WBC 12.2 103/ul Critically high 4.0-11.0 [facility] Comment on above: Performed By: #### C MP, HSTROPN, BNP #### [facility] [address] [place] [address] Dr. Get Whitten PROF 14(COMP METB)on 022 Albumin [Mass/Vol] 3.1 g/dL Critically low 3.4-5.0 [facility] Comment on above: Performed By: #### B CHIEF ORDER DISPATCHER, T7, CMP, TSH #### [facility] [address] [place] [address] Dr. Get Whitten Albumin/Globulin [Mass ratio] 1.1 {ratio} Normal [facility] Comment on above: Performed By: #### B CHIEF ORDER DISPATCHER, T7, CMP, TSH #### [facility] [address] [place] [address] Dr. Get Whitten ALP [Catalytic activity/Vol] 44 U/L Critically low 46-116 [facility] Comment on above: Performed By: #### B CHIEF ORDER DISPATCHER, T7, CMP, TSH #### [facility] [address] [place] [address] Dr. Get Whitten ALT [Catalytic activity/Vol] 87 U/L Critically high 16-63 [facility] Comment on above: Performed By: #### B CHIEF ORDER DISPATCHER, T7, CMP, TSH #### [facility] [address] [address] [address] Get Whitten Anion gap [Moles/Vol] 12.6 mmol/L Normal [facility] Comment on above: Performed By: #### B CHIEF ORDER DISPATCHER, T7, CMP, TSH #### [facility] [address] [address] [address] Get Whitten AST [Catalytic activity/Vol] 38 U/L Critically high 15-37 [facility] Comment on above: Performed By: #### B CHIEF ORDER DISPATCHER, T7, CMP, TSH #### [facility] [address] [address] [address] Get Whitten Bilirubin [Mass/Vol] 0.4 mg/dL Normal 0.2-1.0 [facility] Comment on above: Performed By: #### B CHIEF ORDER DISPATCHER, T7, CMP, TSH #### [facility] [address] [address] [address] Get Whitten Calcium [Mass/Vol] 7.7 mg/dL Critically low 8.5-10.1 [facility] Comment on above: Performed By: #### B CHIEF ORDER DISPATCHER, T7, CMP, TSH #### [facility] [address] [address] [address] Get Whitten Chloride [Moles/Vol] 97 mmol/L Critically low 98-107 [facility] Comment on above: Performed By: #### B CHIEF ORDER DISPATCHER, T7, CMP, TSH #### [facility] [address] [address] [address] Get Whitten CO2 [Moles/Vol] 22.1 mmol/L Normal 21.0-32.[address] [facility] Comment on above: Performed By: #### B CHIEF ORDER DISPATCHER, T7, CMP, TSH #### [facility] [address] [address] [address] Get Whitten Creatinine [Mass/Vol] 1.17 mg/dL Normal 0.70-1.30 [facility] Comment on above: Performed By: #### B CHIEF ORDER DISPATCHER, T7, CMP, TSH #### [facility] [address] [address] [address] Get Whitten EGFR-AF INDONESIAN >60 Normal >=[address] [facility] Comment on above: Performed By: #### B CHIEF ORDER DISPATCHER, T7, CMP, TSH #### [facility] [address] [address] [address] Get Whitten EGFR-NON AF INDONESIAN >60 Normal >=60 [facility] Comment on above: Performed By: #### B CHIEF ORDER DISPATCHER, T7, CMP, TSH #### [facility] [address] [address] [address] Get Whitten Globulin (S) [Mass/Vol] 2.7 g/dL Normal [facility] Comment on above: Performed By: #### B CHIEF ORDER DISPATCHER, T7, CMP, TSH #### [facility] [address] [place] [address] Dr. Get Whitten Glucose [Mass/Vol] 165 mg/dL Critically high 74-106 [facility] Comment on above: Performed By: #### B CHIEF ORDER DISPATCHER, T7, CMP, TSH #### [facility] [address] [place] [address] Dr. Get Whitten Potassium [Moles/Vol] 3.7 mmol/L Normal 3.5-5.1 [facility] Comment on above: Performed By: #### B CHIEF ORDER DISPATCHER, T7, CMP, TSH #### [facility] [address] [place] [address] Dr. Get Whitten Protein [Mass/Vol] 5.8 g/dL Critically low 6.4-8.2 [facility] Comment on above: Performed By: #### B CHIEF ORDER DISPATCHER, T7, CMP, TSH #### [facility] [address] [place] [address] Dr. Get Whitten Sodium [Moles/Vol] 128 mmol/L Critically low 136-145 [facility] Comment on above: Performed By: #### B CHIEF ORDER DISPATCHER, T7, CMP, TSH #### [facility] [address] [place] [address] Dr. Get Whitten Urea nitrogen [Mass/Vol] 17.0 mg/dL Normal 7.0-18.0 [facility] Comment on above: Performed By: #### B CHIEF ORDER DISPATCHER, T7, CMP, TSH #### [facility] [address] [place] [address] Dr. Get Whitten Urea nitrogen/Creatinine [Mass ratio] 14.5 mg/mg Normal [facility] Comment on above: Performed By: #### B CHIEF ORDER DISPATCHER, T7, CMP, TSH #### [facility] [address] [place] [address] Dr. Get Whitten SODIUM RANDOM URINEon 2021 Sodium (U) [Moles/Vol] 6 mmol/L Critically low 30-90 [facility] Comment on above: Performed By: #### B CHIEF ORDER DISPATCHER, T7, CMP, TSH #### [facility] [address] [place] [address] Dr. Get Whitten BNPon 03-26-2022 Natriuretic peptide B (Bld) [Mass/Vol] 472.0 pg/mL Normal <=900.0 [facility] Comment on above: Performed By: #### C MP, HSTROPN, BNP #### [facility] [address] [place] [address] Dr. Get Whitten CARDIAC ANA 3-6on 2 CK [Catalytic activity/Vol] 53 U/L Normal 39-308 [facility] Comment on above: Performed By: #### C VDTBH #### [facility] [address] [place] [address] Dr. Get Whitten CK.MB [Mass/Vol] 1.61 ng/mL Normal <=3.[address] [facility] Comment on above: Performed By: #### C VDTBH #### [facility] [address] [place] [address] Dr. Get Whitten HSTROP 20.2 pg/mL Normal 4.0-76.1 [facility] Comment on above: Result Comment: CUT- OFF POINTS HAVE BEEN ESTABLISHED BASED ON THE FOURTH UNIVERSAL DEFINITIONS OF MYOCARDIAL INFARCTION. THE UPPER REFERENCE LIMIT (URL) OF TROPONIN, DEFINED THE 99TH PERCENTILE OF cTnI DISTRIBUTION IN A REFERENCE POPULATION, HAS BEEN CONFIRMED THE DECISION THRESHOLD FOR [facility] DIAGNOSIS. Performed By: #### C VDTBH #### [facility] [address] [place] [address] Dr. Get Whitten CK [Catalytic activity/Vol] 40 U/L Normal 39-308 [facility] Comment on above: Performed By: #### B CHIEF ORDER DISPATCHER, T7, CMP, TSH #### [facility] [address] [address] [address] Get Whitten CK.MB [Mass/Vol] 1.53 ng/mL Normal <=3.[address] [facility] Comment on above: Performed By: #### B CHIEF ORDER DISPATCHER, T7, CMP, TSH #### [facility] [address] [address] [address] Get Whitten HSTROP 23.6 pg/mL Normal 4.0-76.1 [facility] Comment on above: Result Comment: CUT- OFF POINTS HAVE BEEN ESTABLISHED BASED ON THE FOURTH UNIVERSAL DEFINITIONS OF MYOCARDIAL INFARCTION. THE UPPER REFERENCE LIMIT (URL) OF TROPONIN, DEFINED THE 99TH PERCENTILE OF cTnI DISTRIBUTION IN A REFERENCE POPULATION, HAS BEEN CONFIRMED THE DECISION THRESHOLD FOR VA DIAGNOSIS. Performed By: #### B CHIEF ORDER DISPATCHER, T7, CMP, TSH #### [facility] [address] [place] [address] Dr. Get Whitten CBC W MANUAL DIFFon 03-26-20 22 ATYPICAL LYMPH # Normal [facility] Comment on above: Performed By: #### C MP, HSTROPN, BNP #### [facility] [address] [place] [address] Dr. Get Whitten ATYPICAL LYMPH % Normal [facility] Comment on above: Performed By: #### C MP, HSTROPN, BNP #### [facility] [address] [place] [address] Dr. Get Whitten BAND # 0.5 103/ul Critically high 0.0-0.3 [facility] Comment on above: Performed By: #### C MP, HSTROPN, BNP #### [facility] [address] [place] [address] Dr. Get Whitten BAND % 4 % Normal 0-5 [facility] Comment on above: Performed By: #### C MP, HSTROPN, BNP #### [facility] [address] [place] [address] Dr. Get Whitten BASOM # 0.00 103/ul Normal 0.00-0.10 [facility] Comment on above: Performed By: #### C MP, HSTROPN, BNP #### [facility] [address] [place] [address] Dr. Get Whitten BASOM % 0.0 % Critically low 0.2-2.[address] [facility] Comment on above: Performed By: #### C MP, HSTROPN, BNP #### [facility] [address] [place] [address] Dr. Get Whitten BLAST # Normal [facility] Comment on above: Performed By: #### C MP, HSTROPN, BNP #### [facility] [address] [place] [address] Dr. Get Whitten BLAST % Normal [facility] Comment on above: Performed By: #### C MP, HSTROPN, BNP #### [facility] [address] [place] [address] Dr. Get Whitten CORRECTED WBC Normal 4.0-11.0 [facility] Comment on above: Performed By: #### C MP, HSTROPN, BNP #### [facility] [address] [place] [address] Dr. Get Whitten EOS # 0.00 103/ul Normal 0.00-0.70 [facility] Comment on above: Performed By: #### C MP, HSTROPN, BNP #### [facility] [address] [place] [address] Dr. Get Whitten EOS% 0.0 % Critically low 0.9-7.[address] [facility] Comment on above: Performed By: #### C MP, HSTROPN, BNP #### [facility] [address] [place] [address] Dr. Get Whitten HCT 44.0 % Normal 42.0-54.0 [facility] Comment on above: Performed By: #### C MP, HSTROPN, BNP #### [facility] [address] [place] [address] Dr. Get Whitten HGB 15.8 g/dl Normal 14.0-18.0 [facility] Comment on above: Performed By: #### C MP, HSTROPN, BNP #### [facility] [address] [place] [address] Dr. Get Whitten HYPERSEG NEUT 2+ Normal [facility] Comment on above: Performed By: #### C MP, HSTROPN, BNP #### [facility] [address] [address] [address] Get Whitten LYMPHM # 1.56 103/ul Normal 1.20-3.80 [facility] Comment on above: Performed By: #### C MP, HSTROPN, BNP #### [facility] [address] [place] [address] Dr. Get Whitten LYMPHM% 13.0 % Critically low 20.5-60.[address] [facility] Comment on above: Performed By: #### C MP, HSTROPN, BNP #### [facility] [address] [place] [address] Dr. Get Whitten MCH 36.2 pg Critically high 25.9-34.0 [facility] Comment on above: Performed By: #### C MP, HSTROPN, BNP #### [facility] [address] [place] [address] Dr. Get Whitten MCHC 35.9 g/dl Critically high 29.9-35.2 [facility] Comment on above: Performed By: #### C MP, HSTROPN, BNP #### [facility] [address] [place] [address] Dr. Get Whitten MCV 100.7 fL Critically high 80.0-94.0 [facility] Comment on above: Performed By: #### C MP, HSTROPN, BNP #### [facility] [address] [place] [address] Dr. Get Whitten METAMYELOCYTE # Normal [facility] Comment on above: Performed By: #### C MP, HSTROPN, BNP #### [facility] [address] [place] [address] Dr. Get Whitten METAMYELOCYTE % Normal [facility] Comment on above: Performed By: #### C MP, HSTROPN, BNP #### [facility] [address] [place] [address] Dr. Get Whitten MONOM# 1.08 103/ul Critically high 0.30-0.80 [facility] Comment on above: Performed By: #### C MP, HSTROPN, BNP #### [facility] [address] [place] [address] Dr. Get Whitten MONOM% 9.0 % Normal 1.7-12.0 [facility] Comment on above: Performed By: #### C MP, HSTROPN, BNP #### [facility] [address] [place] [address] Dr. Get Whitten MPV 10.3 fL Normal 9.5-13.5 [facility] Comment on above: Performed By: #### C MP, HSTROPN, BNP #### [facility] [address] [place] [address] Dr. Get Whitten MYELOCYTE # Normal [facility] Comment on above: Performed By: #### C MP, HSTROPN, BNP #### [facility] [address] [place] [address] Dr. Get Whitten MYELOCYTE % Normal [facility] Comment on above: Performed By: #### C MP, HSTROPN, BNP #### [facility] [address] [place] [address] Dr. Get Whitten NRBC Normal [facility] Comment on above: Performed By: #### C MP, HSTROPN, BNP #### [facility] [address] [place] [address] Dr. Get Whitten PLT 111 103/ul Critically low 150-[address] [facility] Comment on above: Performed By: #### C MP, HSTROPN, BNP #### [facility] [address] [place] [address] Dr. Get Whitten RBC 4.37 106/ul Critically low 4.70-6.10 [facility] Comment on above: Performed By: #### C MP, HSTROPN, BNP #### [facility] [address] [place] [address] Dr. Get Whitten RDW 12.4 % Normal 11.0-15.0 [facility] Comment on above: Performed By: #### C MP, HSTROPN, BNP #### [facility] [address] [place] [address] Dr. Get Whitten SEG # 8.88 103/ul Critically high 1.40-6.50 [facility] Comment on above: Performed By: #### C MP, HSTROPN, BNP #### [facility] [address] [place] [address] Dr. Get Whitten SEG % 74.0 % Normal 43.0-75.0 [facility] Comment on above: Performed By: #### C MP, HSTROPN, BNP #### [facility] [address] [place] [address] Dr. Get Whitten WBC 12.0 103/ul Critically high 4.0-11.0 [facility] Comment on above: Performed By: #### C MP, HSTROPN, BNP #### [facility] [address] [place] [address] Dr. Get Whitten CRPon 03-26-2022 CRP [Mass/Vol] mg/L Normal <=1.[address] [facility] Comment on above: Performed By: #### C MP, HSTROPN, BNP #### [facility] [address] [place] [address] Dr. Get Whitten Covid-19 PCR (CVDTBH)on 03-16 SARS-CoV-2 (COVID-19) RNA ASHLEE+probe Ql (Unsp spec) Detected Critically abnormal NOT DETECTED [facility] Comment on above: Result Comment: This test is not yet approved or cleared by the [place] FDA. When there are no FDA-approved or cleared tests available, and other criteria are met, FDA can make tests available under an emergency access mechanism called an Emergency Use Authorization (EUA). The EUA for this test is supported by the [place] of Health and Human Service's declaration that circumstances exist to justify the emergency use of in vitro diagnostics for the detection and/or diagnosis of the virus that causes COVID-19. This EUA will remain in effect for the duration of the COVID-19 declaration justifying emergency of IVDs, unless it is terminated or revoked by the FDA (after which the test may no longer be used). Performed By: #### C VDTBH #### [facility] [address] [place] [address] Dr. Get Whitten LACTATE/LACTIC ACIDon 2021 Lactate [Moles/Vol] 0.4 mmol/L Normal 0.4-1.9 [facility] Comment on above: Performed By: #### C MP, HSTROPN, BNP #### [facility] [address] [place] [address] Dr. Get Whitten NAon 03-26-2022 Sodium [Moles/Vol] 126 mmol/L Critically low 136-145 [facility] Comment on above: Performed By: #### B CHIEF ORDER DISPATCHER, T7, CMP, TSH #### [facility] [address] [place] [address] Dr. Get Whitten PROF 14(COMP METB)on 022 Albumin [Mass/Vol] 3.6 g/dL Normal 3.4-5.0 [facility] Comment on above: Performed By: #### C MP, HSTROPN, BNP #### [facility] [address] [place] [address] Dr. Get Whitten Albumin/Globulin [Mass ratio] 1.0 {ratio} Normal [facility] Comment on above: Performed By: #### C MP, HSTROPN, BNP #### [facility] [address] [place] [address] Dr. Get Whitten ALP [Catalytic activity/Vol] 49 U/L Normal 46-116 [facility] Comment on above: Performed By: #### C MP, HSTROPN, BNP #### [facility] [address] [place] [address] Dr. Get Whitten ALT [Catalytic activity/Vol] 80 U/L Critically high 16-63 [facility] Comment on above: Performed By: #### C MP, HSTROPN, BNP #### [facility] [address] [place] [address] Dr. Get Whitten Anion gap [Moles/Vol] 16.2 mmol/L Normal [facility] Comment on above: Performed By: #### C MP, HSTROPN, BNP #### [facility] [address] [place] [address] Dr. Get Whitten AST [Catalytic activity/Vol] 42 U/L Critically high 15-37 [facility] Comment on above: Performed By: #### C MP, HSTROPN, BNP #### [facility] [address] [place] [address] Dr. Get Whitten Bilirubin [Mass/Vol] 0.7 mg/dL Normal 0.2-1.0 [facility] Comment on above: Performed By: #### C MP, HSTROPN, BNP #### [facility] [address] [place] [address] Dr. Get Whitten Calcium [Mass/Vol] 8.4 mg/dL Critically low 8.5-10.1 [facility] Comment on above: Performed By: #### C MP HSTROPN, BNP #### [facility] [address] [place] [address] Dr. Get Whitten Chloride [Moles/Vol] 91 mmol/L Critically low 98-107 [facility] Comment on above: Performed By: #### C MP, HSTROPN, BNP #### [facility] [address] [place] [address] Dr. Get Whitten CO2 [Moles/Vol] 19.8 mmol/L Critically low 21.0-32.0 [facility] Comment on above: Performed By: #### C MP, HSTROPN, BNP #### [facility] [address] [place] [address] Dr. Get Whitten Creatinine [Mass/Vol] 1.11 mg/dL Normal 0.70-1.30 [facility] Comment on above: Performed By: #### C MP, HSTROPN, BNP #### [facility] [address] [place] [address] Dr. Get Whitten EGFR-AF INDONESIAN >60 Normal >=60 [facility] Comment on above: Performed By: #### C MP, HSTROPN, BNP #### [facility] [address] [place] [address] Dr. Get Whitten EGFR-NON AF INDONESIAN >60 Normal >=60 [facility] Comment on above: Performed By: #### C MP, HSTROPN, BNP #### [facility] [address] [place] [address] Dr. Get Whitten Globulin (S) [Mass/Vol] 3.6 g/dL Normal [facility] Comment on above: Performed By: #### C MP, HSTROPN, BNP #### [facility] [address] [place] [address] Dr. Get Whitten Glucose [Mass/Vol] 109 mg/dL Critically high 74-106 [facility] Comment on above: Performed By: #### C MP, HSTROPN, BNP #### [facility] [address] [place] [address] Dr. Get Whitten Potassium [Moles/Vol] 4.0 mmol/L Normal 3.5-5.1 [facility] Comment on above: Performed By: #### C MP, HSTROPN, BNP #### [facility] [address] [place] [address] Dr. Get Whitten Protein [Mass/Vol] 7.2 g/dL Normal 6.4-8.2 [facility] Comment on above: Performed By: #### C MP, HSTROPN, BNP #### [facility] [address] [place] [address] Dr. Get Whitten Sodium [Moles/Vol] 123 mmol/L Critically low 136-145 [facility] Comment on above: Performed By: #### C MP, HSTROPN, BNP #### [facility] [address] [place] [address] Dr. Get Whitten Urea nitrogen [Mass/Vol] 15.0 mg/dL Normal 7.0-18.0 [facility] Comment on above: Performed By: #### C THAD BUTT, BNP #### [facility] [address] [address] [address] Get Whitten Urea nitrogen/Creatinine [Mass ratio] 13.5 mg/mg Normal [facility] Comment on above: Performed By: #### C BRITTANY BUTTN, BNP #### [facility] [address] [address] [address] Get Whitten SPUTUM GRAM STAINon 03-26-20 22 COMMENTS NO ORGANISMS OBSERVED Normal [facility] Comment on above: Performed By: #### C VDTBH #### [facility] [address] [place] [address] Dr. Get Whitten DIPHTHEROIDS Normal [facility] Comment on above: Performed By: #### C VDTBH #### [facility] [address] [address] [address] Get Whitten EPITHELIALS <25 Normal [facility] Comment on above: Performed By: #### C VDTBH #### [facility] [address] [address] [address] Get Whitten FUNGAL ELEMENTS Normal [facility] Comment on above: Performed By: #### C VDTBH #### [facility] [address] [place] [address] Dr. Get Whitten GRAM NEG BACILLI Normal [facility] Comment on above: Performed By: #### C VDTBH #### [facility] [address] [place] [address] Dr. Get WATSON NEG DIPPLOCOCCI Normal [facility] Comment on above: Performed By: #### C VDTBH #### [facility] [address] [address] [address] Get Whitten GRAM POS BACILLI Normal [facility] Comment on above: Performed By: #### C VDTBH #### [facility] [address] [address] [address] Get Whitten GRAM POSITIVE COCCI Normal [facility] Comment on above: Performed By: #### C VDTBH #### [facility] [address] [address] [address] Get Whitten WBC (Bld) [#/Vol] 10*3/uL Normal [facility] Comment on above: Performed By: #### C VDTBH #### [facility] [address] [place] [address] Dr. Get Whitten TROPONIN, HIGH SENSITIVITYon 03-26-2022 HSTROP 19.8 pg/mL Normal 4.0-76.1 [facility] Comment on above: Result Comment: CUT- OFF POINTS HAVE BEEN ESTABLISHED BASED ON THE FOURTH UNIVERSAL DEFINITIONS OF MYOCARDIAL INFARCTION. THE UPPER REFERENCE LIMIT (URL) OF TROPONIN, DEFINED THE 99TH PERCENTILE OF cTnI DISTRIBUTION IN A REFERENCE POPULATION, HAS BEEN CONFIRMED THE DECISION THRESHOLD FOR [facility] DIAGNOSIS. Performed By: #### C MP, HSTROPN, BNP #### [facility] [address] [place] [address] Dr. Get Whitten TSHon 03-26-2022 TSH 51.305 uIU/mL Critically high 0.358-3.740 [facility] Comment on above: Performed By: #### C MP, HSTROPN, BNP #### [facility] [address] [place] [address] Dr. Get Whitten XR CHEST 1 Von 03-26-2022 XR CHEST 1 V EXAM: XR CHEST 1 V HISTORY: COUGH COMPARISON: Chest x-ray 03/23/2022 TECHNIQUE: Single frontal view chest x-ray FINDINGS: No lobar consolidation, large pleural effusions, pneumothorax, or acute bony abnormality. Cardiac size is unremarkable. IMPRESSION: No radiographic evidence for acute chest abnormality. Electronically authenticated by: JANKI STEEL Date: 2022-03-26 04:14 Normal [facility] BNPon 03-23-2022 Natriuretic peptide B (Bld) [Mass/Vol] 385.0 pg/mL Normal <=900.0 [facility] Comment on above: Performed By: #### C MP, HSTROPN, BNP #### [facility] [address] [place] [address] Dr. Get Whitten CBC W MANUAL DIFFon 03-23-20 22 ATYPICAL LYMPH # Normal [facility] Comment on above: Performed By: #### B CHIEF ORDER DISPATCHER, T7, CMP, TSH #### [facility] [address] [place] [address] Dr. Get Whitten ATYPICAL LYMPH % Normal [facility] Comment on above: Performed By: #### B CHIEF ORDER DISPATCHER, T7, CMP, TSH #### [facility] [address] [place] [address] Dr. Get Whitten BAND # 0.2 103/ul Normal 0.0-0.3 [facility] Comment on above: Performed By: #### B CHIEF ORDER DISPATCHER, T7, CMP, TSH #### [facility] [address] [place] [address] Dr. Get Whitten BAND % 2 % Normal 0-5 [facility] Comment on above: Performed By: #### B CHIEF ORDER DISPATCHER, T7, CMP, TSH #### [facility] [address] [place] [address] Dr. Get Whitten BASOM # 0.00 103/ul Normal 0.00-0.10 [facility] Comment on above: Performed By: #### B CHIEF ORDER DISPATCHER, T7, CMP, TSH #### [facility] [address] [place] [address] Dr. Get Whitten BASOM % 0.0 % Critically low 0.2-2.[address] [facility] Comment on above: Performed By: #### B CHIEF ORDER DISPATCHER, T7, CMP, TSH #### [facility] [address] [place] [address] Dr. Get Whitten BLAST # Normal [facility] Comment on above: Performed By: #### B CHIEF ORDER DISPATCHER, T7, CMP, TSH #### [facility] [address] [place] [address] Dr. Get Whitten BLAST % Normal [facility] Comment on above: Performed By: #### B CHIEF ORDER DISPATCHER, T7, CMP, TSH #### [facility] [address] [place] [address] Dr. Get Whitten CORRECTED WBC Normal 4.0-11.0 [facility] Comment on above: Performed By: #### B CHIEF ORDER DISPATCHER, T7, CMP, TSH #### [facility] [address] [address] [address] Get Whitten EOS # 0.00 103/ul Normal 0.00-0.70 [facility] Comment on above: Performed By: #### B CHIEF ORDER DISPATCHER, T7, CMP, TSH #### [facility] [address] [place] [address] Dr. Get Whitten EOS% 0.0 % Critically low 0.9-7.[address] [facility] Comment on above: Performed By: #### B CHIEF ORDER DISPATCHER, T7, CMP, TSH #### [facility] [address] [place] [address] Dr. Get Whitten HCT 45.6 % Normal 42.0-54.0 [facility] Comment on above: Performed By: #### B CHIEF ORDER DISPATCHER, T7, CMP, TSH #### [facility] [address] [place] [address] Dr. Get Whitten HGB 16.3 g/dl Normal 14.0-18.0 [facility] Comment on above: Performed By: #### B CHIEF ORDER DISPATCHER, T7, CMP, TSH #### [facility] [address] [place] [address] Dr. Get Whitten LYMPHM # 0.89 103/ul Critically low 1.20-3.80 [facility] Comment on above: Performed By: #### B CHIEF ORDER DISPATCHER, T7, CMP, TSH #### [facility] [address] [place] [address] Dr. Get Whitten LYMPHM% 9.0 % Critically low 20.5-60.[address] [facility] Comment on above: Performed By: #### B CHIEF ORDER DISPATCHER, T7, CMP, TSH #### [facility] [address] [place] [address] Dr. Get Whitten MCH 36.5 pg Critically high 25.9-34.0 [facility] Comment on above: Performed By: #### B CHIEF ORDER DISPATCHER, T7, CMP, TSH #### [facility] [address] [place] [address] Dr. Get Whitten MCHC 35.7 g/dl Critically high 29.9-35.2 [facility] Comment on above: Performed By: #### B CHIEF ORDER DISPATCHER, T7, CMP, TSH #### [facility] [address] [place] [address] Dr. Get Whitten MCV 102.0 fL Critically high 80.0-94.0 [facility] Comment on above: Performed By: #### B CHIEF ORDER DISPATCHER, T7, CMP, TSH #### [facility] [address] [place] [address] Dr. Get Whitten METAMYELOCYTE # Normal [facility] Comment on above: Performed By: #### B CHIEF ORDER DISPATCHER, T7, CMP, TSH #### [facility] [address] [place] [address] Dr. Get Whitten METAMYELOCYTE % Normal [facility] Comment on above: Performed By: #### B CHIEF ORDER DISPATCHER, T7, CMP, TSH #### [facility] [address] [place] [address] Dr. Get Whitten MONOM# 0.89 103/ul Critically high 0.30-0.80 [facility] Comment on above: Performed By: #### B CHIEF ORDER DISPATCHER, T7, CMP, TSH #### [facility] [address] [place] [address] Dr. Get Whitten MONOM% 9.0 % Normal 1.7-12.0 [facility] Comment on above: Performed By: #### B CHIEF ORDER DISPATCHER, T7, CMP, TSH #### [facility] [address] [place] [address] Dr. Get Whitten MPV 8.8 fL Critically low 9.5-13.[address] [facility] Comment on above: Performed By: #### B CHIEF ORDER DISPATCHER, T7, CMP, TSH #### [facility] [address] [place] [address] Dr. Get Whitten MYELOCYTE # Normal [facility] Comment on above: Performed By: #### B CHIEF ORDER DISPATCHER, T7, CMP, TSH #### [facility] [address] [place] [address] Dr. Get Whitten MYELOCYTE % Normal [facility] Comment on above: Performed By: #### B CHIEF ORDER DISPATCHER, T7, CMP, TSH #### [facility] [address] [address] [address] Get Whitten NRBC Normal [facility] Comment on above: Performed By: #### B CHIEF ORDER DISPATCHER, T7, CMP, TSH #### [facility] [address] [address] [address] Get Whitten PLT 156 103/ul Normal 150-450 [facility] Comment on above: Performed By: #### B CHIEF ORDER DISPATCHER, T7, CMP, TSH #### [facility] [address] [address] [address] Get Whitten RBC 4.47 106/ul Critically low 4.70-6.10 [facility] Comment on above: Performed By: #### B CHIEF ORDER DISPATCHER, T7, CMP, TSH #### [facility] [address] [address] [address] Get Whitten RDW 12.4 % Normal 11.0-15.0 [facility] Comment on above: Performed By: #### B CHIEF ORDER DISPATCHER, T7, CMP, TSH #### [facility] [address] [address] [address] Get Whitten SEG # 7.92 103/ul Critically high 1.40-6.[address] [facility] Comment on above: Performed By: #### B CHIEF ORDER DISPATCHER, T7, CMP, TSH #### [facility] [address] [address] [address] Get Whitten SEG % 80.0 % Critically high 43.0-75.0 [facility] Comment on above: Performed By: #### B CHIEF ORDER DISPATCHER, T7, CMP, TSH #### [facility] [address] [address] [address] Get Whitten WBC 9.9 103/ul Normal 4.0-11.0 [facility] Comment on above: Performed By: #### B CHIEF ORDER DISPATCHER, T7, CMP, TSH #### [facility] [address] [address] [address] Get Whitten PROF 14(COMP METB)on 022 Albumin [Mass/Vol] 3.9 g/dL Normal 3.4-5.0 [facility] Comment on above: Performed By: #### C MP, HSTROPN, BNP #### [facility] [address] [place] [address] Dr. Get Whitten Albumin/Globulin [Mass ratio] 1.1 {ratio} Normal [facility] Comment on above: Performed By: #### C MP, HSTROPN, BNP #### [facility] [address] [place] [address] Dr. Get Whitten ALP [Catalytic activity/Vol] 55 U/L Normal 46-116 [facility] Comment on above: Performed By: #### C MP, HSTROPN, BNP #### [facility] [address] [place] [address] Dr. Get Whitten ALT [Catalytic activity/Vol] 67 U/L Critically high 16-63 [facility] Comment on above: Performed By: #### C MP, HSTROPN, BNP #### [facility] [address] [place] [address] Dr. Get Whitten Anion gap [Moles/Vol] 13.2 mmol/L Normal [facility] Comment on above: Performed By: #### C MP, HSTROPN, BNP #### [facility] [address] [place] [address] Dr. Get Whitten AST [Catalytic activity/Vol] 20 U/L Normal 15-37 [facility] Comment on above: Performed By: #### C MP, HSTROPN, BNP #### [facility] [address] [place] [address] Dr. Get Whitten Bilirubin [Mass/Vol] 0.4 mg/dL Normal 0.2-1.0 [facility] Comment on above: Performed By: #### C MP, HSTROPN, BNP #### [facility] [address] [place] [address] Dr. Get Whitten Calcium [Mass/Vol] 8.5 mg/dL Normal 8.5-10.1 [facility] Comment on above: Performed By: #### C MP, HSTROPN, BNP #### [facility] [address] [address] [address] Get Whitten Chloride [Moles/Vol] 93 mmol/L Critically low 98-107 [facility] Comment on above: Performed By: #### C MP, HSTROPN, BNP #### [facility] [address] [address] [address] Get Whitten CO2 [Moles/Vol] 22.6 mmol/L Normal 21.0-32.0 [facility] Comment on above: Performed By: #### C MP, HSTROPN, BNP #### [facility] [address] [address] [address] Get Whitten Creatinine [Mass/Vol] 1.26 mg/dL Normal 0.70-1.30 [facility] Comment on above: Performed By: #### C MP, HSTROPN, BNP #### [facility] [address] [place] [address] Dr. Get Whitten EGFR-AF INDONESIAN >60 Normal >=60 [facility] Comment on above: Performed By: #### C MP, HSTROPN, BNP #### [facility] [address] [address] [address] Get Whitten EGFR-NON AF INDONESIAN 59 mL/min/1.73m2 Critically low >=60 [facility] Comment on above: Performed By: #### C MP, HSTROPN, BNP #### [facility] [address] [address] [address] Get Whitten Globulin (S) [Mass/Vol] 3.5 g/dL Normal [facility] Comment on above: Performed By: #### C MP, HSTROPN, BNP #### [facility] [address] [address] [address] Get Whitten Glucose [Mass/Vol] 144 mg/dL Critically high 74-106 [facility] Comment on above: Performed By: #### C MP, HSTROPN, BNP #### [facility] [address] [address] [address] Get Whitten Potassium [Moles/Vol] 3.9 mmol/L Normal 3.5-5.1 [facility] Comment on above: Performed By: #### C MP, HSTROPN, BNP #### [facility] [address] [place] [address] Dr. Get Whitten Protein [Mass/Vol] 7.4 g/dL Normal 6.4-8.2 [facility] Comment on above: Performed By: #### C MP, HSTROPN, BNP #### [facility] [address] [address] [address] Get Whitten Sodium [Moles/Vol] 125 mmol/L Critically low 136-145 [facility] Comment on above: Performed By: #### C MP, HSTROPN, BNP #### [facility] [address] [place] [address] Dr. Get Whitten Urea nitrogen [Mass/Vol] 14.0 mg/dL Normal 7.0-18.0 [facility] Comment on above: Performed By: #### C MP, HSTROPN, BNP #### [facility] [address] [place] [address] Dr. Get Whitten Urea nitrogen/Creatinine [Mass ratio] 11.1 mg/mg Normal [facility] Comment on above: Performed By: #### C MP, HSTROPN, BNP #### [facility] [address] [place] [address] Dr. Get Whitten TROPONIN, HIGH SENSITIVITYon 03-23-2022 HSTROP 6.6 pg/mL Normal 4.0-76.1 [facility] Comment on above: Result Comment: CUT- OFF POINTS HAVE BEEN ESTABLISHED BASED ON THE FOURTH UNIVERSAL DEFINITIONS OF MYOCARDIAL INFARCTION. THE UPPER REFERENCE LIMIT (URL) OF TROPONIN, DEFINED THE 99TH PERCENTILE OF cTnI DISTRIBUTION IN A REFERENCE POPULATION, HAS BEEN CONFIRMED THE DECISION THRESHOLD FOR [facility] DIAGNOSIS. Performed By: #### C MP, HSTROPN, BNP #### [facility] [address] [place] [address] Dr. Get Whitten XR CHEST 1 Von 03-23-2022 XR CHEST 1 V EXAMINATION: XR CHES T 1 V HISTORY: CHEST PAIN, UNSPECIFIED COMPARISON: XR chest 01/24/2022 FINDINGS: LUNGS: Mild haziness and indistinct margin of the right side of the heart. Lungs are otherwise clear, but underexpanded. VASCULATURE: No increased pulmonary vasculature. PLEURA: No pneumothorax, effusion, or pleural thickening. CARDIAC: No cardiomegaly or cardiac silhouette abnormality. MEDIASTINUM: No visible mass or adenopathy. BONES: No fracture or visible bone lesion. OTHER: Negative. IMPRESSION: 1. Possible trace amount of right middle lobe infiltrates or atelectasis. Electronically authenticated by: SHEN SOSA Date: 2022-03-23 15:02 Normal [facility] Covid-19 PCR (CVDTBH)on SARS-CoV-2 (COVID-19) RNA ASHLEE+probe Ql (Unsp spec) Detected Critically abnormal NOT DETECTED [facility] Comment on above: Result Comment: This test is not yet approved or cleared by the [place] FDA. When there are no FDA-approved or cleared tests available, and other criteria are met, FDA can make tests available under an emergency access mechanism called an Emergency Use Authorization (EUA). The EUA for this test is supported by the [place] of Health and Human Service's declaration that circumstances exist to justify the emergency use of in vitro diagnostics for the detection and/or diagnosis of the virus that causes COVID-19. This EUA will remain in effect for the duration of the COVID-19 declaration justifying emergency of IVDs, unless it is terminated or revoked by the FDA (after which the test may no longer be used). Performed By: #### C MP, HSTROPN, BNP #### [facility] [address] [place] [address] Dr. Get Whitten CBC AUTO DIFFon 01-24-2022 BASO # 0.1 103/ul Normal 0.0-0.1 [facility] Comment on above: Performed By: #### B CHIEF ORDER DISPATCHER, T7, CMP, TSH #### [facility] [address] [place] [address] Dr. Get Whitten Basophils/100 WBC (Bld) 0.6 % Normal 0.2-2.0 [facility] Comment on above: Performed By: #### B CHIEF ORDER DISPATCHER, T7, CMP, TSH #### [facility] [address] [place] [address] Dr. Get Whitten EO # 0.0 103/ul Normal 0.0-0.7 [facility] Comment on above: Performed By: #### B CHIEF ORDER DISPATCHER, T7, CMP, TSH #### [facility] [address] [place] [address] Dr. Get Whitten Eosinophils/100 WBC (Bld) 0.1 % Critically low 0.9-7.0 [facility] Comment on above: Performed By: #### B CHIEF ORDER DISPATCHER, T7, CMP, TSH #### [facility] [address] [place] [address] Dr. Get Whitten Erythrocyte distribution width (RBC) [Ratio] 13.1 % Normal 11.0-15.0 [facility] Comment on above: Performed By: #### B CHIEF ORDER DISPATCHER, T7, CMP, TSH #### [facility] [address] [place] [address] Dr. Get Whitten Hematocrit (Bld) [Volume fraction] 41.0 % Critically low 42.0-54.0 [facility] Comment on above: Performed By: #### B CHIEF ORDER DISPATCHER, T7, CMP, TSH #### [facility] [address] [place] [address] Dr. Get Whitten Hemoglobin (Bld) [Mass/Vol] 14.3 g/dL Normal 14.0-18.0 [facility] Comment on above: Performed By: #### B CHIEF ORDER DISPATCHER, T7, CMP, TSH #### [facility] [address] [place] [address] Dr. Get Whitten IG # 0.25 10e3/ul Critically high 0.00-0.03 [place] [facility] Comment on above: Performed By: #### B CHIEF ORDER DISPATCHER, T7, CMP, TSH #### [facility] [address] [place] [address] Dr. Get Whitten IG % 2.3 % Critically high 0.0-0.5 [facility] Comment on above: Performed By: #### B CHIEF ORDER DISPATCHER, T7, CMP, TSH #### [facility] [address] [place] [address] Dr. Get Whitten LYMPH # 2.4 103/ul Normal 1.2-3.8 [facility] Comment on above: Performed By: #### B CHIEF ORDER DISPATCHER, T7, CMP, TSH #### [facility] [address] [address] [address] Get Whitten Lymphocytes/100 WBC (Bld) 21.7 % Normal 20.5-60.0 [facility] Comment on above: Performed By: #### B CHIEF ORDER DISPATCHER, T7, CMP, TSH #### [facility] [address] [place] [address] Dr. Get Whitten MANUAL DIFF REQ NO Normal [facility] Comment on above: Performed By: #### B CHIEF ORDER DISPATCHER, T7, CMP, TSH #### [facility] [address] [place] [address] Dr. Get Whitten MCH (RBC) [Entitic mass] 37.0 pg Critically high 25.9-34.0 [facility] Comment on above: Performed By: #### B CHIEF ORDER DISPATCHER, T7, CMP, TSH #### [facility] [address] [place] [address] Dr. Get Whitten MCHC (RBC) [Mass/Vol] 34.9 g/dL Normal 29.9-35.2 [facility] Comment on above: Performed By: #### B CHIEF ORDER DISPATCHER, T7, CMP, TSH #### [facility] [address] [place] [address] Dr. Get Whitten MCV (RBC) [Entitic vol] 105.9 fL Critically high 80.0-94.0 [facility] Comment on above: Result Comment: 1+ m acrocytosis Performed By: #### B CHIEF ORDER DISPATCHER, T7, CMP, TSH #### [facility] [address] [place] [address] Dr. Get Whitten MONO # 0.8 103/ul Normal 0.3-0.8 [facility] Comment on above: Performed By: #### B CHIEF ORDER DISPATCHER, T7, CMP, TSH #### [facility] [address] [place] [address] Dr. Get Whitten Monocytes/100 WBC (Bld) 7.0 % Normal 1.7-12.0 [facility] Comment on above: Performed By: #### B CHIEF ORDER DISPATCHER, T7, CMP, TSH #### [facility] [address] [place] [address] Dr. Get Whitten NEUT # 7.5 103/ul Critically high 1.4-6.5 [facility] Comment on above: Performed By: #### B CHIEF ORDER DISPATCHER, T7, CMP, TSH #### [facility] [address] [place] [address] Dr. Get Whitten Neutrophils/100 WBC (Bld) 68.3 % Normal 43.0-75.0 [facility] Comment on above: Performed By: #### B CHIEF ORDER DISPATCHER, T7, CMP, TSH #### [facility] [address] [place] [address] Dr. Get Whitten Platelet mean volume (Bld) [Entitic vol] 8.6 fL Critically low 9.5-13.5 [facility] Comment on above: Performed By: #### B CHIEF ORDER DISPATCHER, T7, CMP, TSH #### [facility] [address] [place] [address] Dr. Get Whitten PLT 235 103/ul Normal 150-450 [facility] Comment on above: Performed By: #### B CHIEF ORDER DISPATCHER, T7, CMP, TSH #### [facility] [address] [place] [address] Dr. Get Whitten RBC 3.87 106/ul Critically low 4.70-6.10 [facility] Comment on above: Performed By: #### B CHIEF ORDER DISPATCHER, T7, CMP, TSH #### [facility] [address] [place] [address] Dr. Get Whitten WBC 11.0 103/ul Normal 4.0-11.0 [facility] Comment on above: Performed By: #### B CHIEF ORDER DISPATCHER, T7, CMP, TSH #### [facility] [address] [place] [address] Dr. Get Whitten POINT OF CARE GLUCOSEon 01-13 Glucose [Mass/Vol] 116 mg/dL Critically high 74-106 [facility] Comment on above: Performed By: #### C MP #### [facility] [address] [place] [address] Dr. Get Whitten PROF CHEM 8 (BAS METB)on Anion gap [Moles/Vol] 14.2 mmol/L Normal [facility] Comment on above: Performed By: #### B CHIEF ORDER DISPATCHER, T7, CMP, TSH #### [facility] [address] [place] [address] Dr. Get Whitten Calcium [Mass/Vol] 8.7 mg/dL Normal 8.5-10.1 [facility] Comment on above: Performed By: #### B CHIEF ORDER DISPATCHER, T7, CMP, TSH #### [facility] [address] [place] [address] Dr. Get Whitten Chloride [Moles/Vol] 99 mmol/L Normal 98-107 [facility] Comment on above: Performed By: #### B CHIEF ORDER DISPATCHER, T7, CMP, TSH #### [facility] [address] [place] [address] Dr. Get Whitten CO2 [Moles/Vol] 25.1 mmol/L Normal 21.0-32.0 [facility] Comment on above: Performed By: #### B CHIEF ORDER DISPATCHER, T7, CMP, TSH #### [facility] [address] [place] [address] Dr. Get Whitten Creatinine [Mass/Vol] 1.24 mg/dL Normal 0.70-1.30 [facility] Comment on above: Performed By: #### B CHIEF ORDER DISPATCHER, T7, CMP, TSH #### [facility] [address] [place] [address] Dr. Get Whitten EGFR-AF INDONESIAN >60 Normal >=[address] [facility] Comment on above: Performed By: #### B CHIEF ORDER DISPATCHER, T7, CMP, TSH #### [facility] [address] [place] [address] Dr. Get Whitten EGFR-NON AF INDONESIAN =60 Normal >=60 [facility] Comment on above: Performed By: #### B CHIEF ORDER DISPATCHER, T7, CMP, TSH #### [facility] [address] [place] [address] Dr. Get Whitten Glucose [Mass/Vol] 122 mg/dL Critically high 74-106 [facility] Comment on above: Performed By: #### B CHIEF ORDER DISPATCHER, T7, CMP, TSH #### [facility] [address] [address] [address] Get Whitten Potassium [Moles/Vol] 4.3 mmol/L Normal 3.5-5.1 [facility] Comment on above: Performed By: #### B CHIEF ORDER DISPATCHER, T7, CMP, TSH #### [facility] [address] [address] [address] Get Whitten Sodium [Moles/Vol] 134 mmol/L Critically low 136-145 Th e [facility] Comment on above: Performed By: #### B CHIEF ORDER DISPATCHER, T7, CMP, TSH #### [facility] [address] [place] [address] Dr. Get Whitten Urea nitrogen [Mass/Vol] 7.0 mg/dL Normal 7.0-18.0 [facility] Comment on above: Performed By: #### B CHIEF ORDER DISPATCHER, T7, CMP, TSH #### [facility] [address] [address] [address] Get Whitten Urea nitrogen/Creatinine [Mass ratio] 5.6 mg/mg Normal [facility] Comment on above: Performed By: #### B CHIEF ORDER DISPATCHER, T7, CMP, TSH #### [facility] [address] [place] [address] Dr. Get Whitten TROPONIN, HIGH SENSITIVITYon 01-24-2022 HSTROP 5.1 pg/mL Normal 4.0-76.1 [facility] Comment on above: Result Comment: CUT- OFF POINTS HAVE BEEN ESTABLISHED BASED ON THE FOURTH UNIVERSAL DEFINITIONS OF MYOCARDIAL INFARCTION. THE UPPER REFERENCE LIMIT (URL) OF TROPONIN, DEFINED THE 99TH PERCENTILE OF cTnI DISTRIBUTION IN A REFERENCE POPULATION, HAS BEEN CONFIRMED THE DECISION THRESHOLD FOR [facility] DIAGNOSIS. Performed By: #### B CHIEF ORDER DISPATCHER, T7, CMP, TSH #### [facility] [address] [place] [address] Dr. Get Whitten XR CHEST 1 Von 01-24-2022 XR CHEST 1 V EXAM: Chest x-ray HISTORY: . CHEST PAIN, UNSPECIFIED . COMPARISON: 01/09/2022 TECHNIQUE: AP portable upright view of the chest FINDINGS: This is an expiratory chest. Heart and vascularity are unremarkable. Lungs are free of focal infiltrates. EKG leads overlie the chest. IMPRESSION: 1. Expiratory chest. 2. No acute heart or lung disease identified. Electronically authenticated by: JULIO CESAR PARKER Date: 2022-01-24 11:31 Normal [facility] BNPon 01-09-2022 Natriuretic peptide B (Bld) [Mass/Vol] 83.0 pg/mL Normal <=900.0 [facility] Comment on above: Performed By: #### C MP, HSTROPN, BNP #### [facility] [address] [place] [address] Dr. Get Whitten CBC AUTO DIFFon 01-09-2022 BASO # 0.0 103/ul Normal 0.0-0.1 [facility] Comment on above: Performed By: #### C MP #### [facility] [address] [place] [address] Dr. Get Whitten Basophils/100 WBC (Bld) 0.4 % Normal 0.2-2.0 [facility] Comment on above: Performed By: #### C MP #### [facility] [address] [place] [address] Dr. Get Whitten EO # 0.0 103/ul Normal 0.0-0.7 [facility] Comment on above: Performed By: #### C MP #### [facility] [address] [address] [address] Get Whitten Eosinophils/100 WBC (Bld) 0.2 % Critically low 0.9-7.0 [facility] Comment on above: Performed By: #### C MP #### [facility] [address] [place] [address] Dr. Get Whitten Erythrocyte distribution width (RBC) [Ratio] 13.1 % Normal 11.0-15.0 [facility] Comment on above: Performed By: #### C MP #### [facility] [address] [place] [address] Dr. Get Whitten Hematocrit (Bld) [Volume fraction] 41.5 % Critically low 42.0-54.0 [facility] Comment on above: Performed By: #### C MP #### [facility] [address] [address] [address] Get Whitten Hemoglobin (Bld) [Mass/Vol] 14.4 g/dL Normal 14.0-18.0 [facility] Comment on above: Performed By: #### C MP #### [facility] [address] [address] [address] Get Whitten IG # 0.12 10e3/ul Critically high 0.00-0.03 [facility] Comment on above: Performed By: #### C MP #### [facility] [address] [address] [address] Get Whitten IG % 1.1 % Critically high 0.0-0.5 [facility] Comment on above: Performed By: #### C MP #### [facility] [address] [place] [address] Dr. Get Whitten LYMPH # 2.3 103/ul Normal 1.2-3.8 [facility] Comment on above: Performed By: #### C MP #### [facility] [address] [place] [address] Dr. Get Whitten Lymphocytes/100 WBC (Bld) 20.9 % Normal 20.5-60.0 [facility] Comment on above: Performed By: #### C MP #### [facility] [address] [place] [address] Dr. Get Whitten MANUAL DIFF REQ NO Normal [facility] Comment on above: Performed By: #### C MP #### [facility] [address] [place] [address] Dr. Get Whitten MCH (RBC) [Entitic mass] 37.1 pg Critically high 25.9-34.0 [facility] Comment on above: Performed By: #### C MP #### [facility] [address] [place] [address] Dr. Get Whitten MCHC (RBC) [Mass/Vol] 34.7 g/dL Normal 29.9-35.2 [facility] Comment on above: Performed By: #### C MP #### [facility] [address] [address] [address] Get Whitten MCV (RBC) [Entitic vol] 107.0 fL Critically high 80.0-94.0 [facility] Comment on above: Result Comment: 1+ m acrocytosis Performed By: #### C MP #### [facility] [address] [address] [address] Get Whitten MONO # 0.7 103/ul Normal 0.3-0.8 [facility] Comment on above: Performed By: #### C MP #### [facility] [address] [address] [address] Get Whitten Monocytes/100 WBC (Bld) 6.3 % Normal 1.7-12.0 [facility] Comment on above: Performed By: #### C MP #### [facility] [address] [place] [address] Dr. Get Whitten NEUT # 7.7 103/ul Critically high 1.4-6.5 [facility] Comment on above: Performed By: #### C MP #### [facility] [address] [address] [address] Get Whitten Neutrophils/100 WBC (Bld) 71.1 % Normal 43.0-75.0 [facility] Comment on above: Performed By: #### C MP #### [facility] [address] [address] [address] Get Whitten Platelet mean volume (Bld) [Entitic vol] 8.6 fL Critically low 9.5-13.5 [facility] Comment on above: Performed By: #### C MP #### [facility] [address] [address] [address] Get Whitten PLT 238 103/ul Normal 150-450 [facility] Comment on above: Performed By: #### C MP #### [facility] [address] [place] [address] Dr. Get Whitten RBC 3.88 106/ul Critically low 4.70-6.10 [facility] Comment on above: Performed By: #### C MP #### [facility] [address] [address] [address] Get Whitten WBC 10.8 103/ul Normal 4.0-11.0 [facility] Comment on above: Performed By: #### C MP #### [facility] [address] [address] [address] Get Whitten Covid-19 PCR ([facility])on 12-15 SARS-CoV-2 (COVID-19) RNA ASHLEE+probe Ql (Unsp spec) Not detected Normal NOT DETECTED [facility] Comment on above: Result Comment: When diagnostic testing is negative, the possibility of a false negative should be considered in the context of a patient's recent exposures and the presence of clinical signs and symptoms consistent with SARS-CoV-2. This test is not yet approved or cleared by the [place] FDA. When there are no FDA-approved or cleared tests available, and other criteria are met, FDA can make tests available under an emergency access mechanism called an Emergency Use Authorization (EUA). The EUA for this test is supported by the [place] of Health and Human Service's declaration that circumstances exist to justify the emergency use of in vitro diagnostics for the detection and/or diagnosis of the virus that causes COVID-19. This EUA will remain in effect for the duration of the COVID-19 declaration justifying emergency of IVDs, unless it is terminated or revoked by the FDA (after which the test may no longer be used). Performed By: #### C FILOMENA, HSTROPN, BNP #### [facility] [address] [place] [address] Dr. Get Whitten PROF 14(COMP METB)on 022 Albumin [Mass/Vol] 4.0 g/dL Normal 3.4-5.0 [facility] Comment on above: Performed By: #### C FILOMENA, HSTROPN, BNP #### [facility] [address] [place] [address] Dr. Get Whitten Albumin/Globulin [Mass ratio] 1.0 {ratio} Normal [facility] Comment on above: Performed By: #### C FILOMENA HSTROPN, BNP #### [facility] [address] [place] [address] Dr. Get Whitten ALP [Catalytic activity/Vol] 90 U/L Normal 46-116 [facility] Comment on above: Performed By: #### C MP, HSTROPN, BNP #### [facility] [address] [place] [address] Dr. Get Whitten ALT [Catalytic activity/Vol] 27 U/L Normal 16-63 [facility] Comment on above: Performed By: #### C MP, HSTROPN, BNP #### [facility] [address] [place] [address] Dr. Get Whitten Anion gap [Moles/Vol] 12.6 mmol/L Normal [facility] Comment on above: Performed By: #### C MP, HSTROPN, BNP #### [facility] [address] [place] [address] Dr. Get Whitten AST [Catalytic activity/Vol] 16 U/L Normal 15-37 [facility] Comment on above: Performed By: #### C MP, HSTROPN, BNP #### [facility] [address] [place] [address] Dr. Get Whitten Bilirubin [Mass/Vol] 0.4 mg/dL Normal 0.2-1.0 [facility] Comment on above: Performed By: #### C MP, HSTROPN, BNP #### [facility] [address] [place] [address] Dr. Get Whitten Calcium [Mass/Vol] 8.4 mg/dL Critically low 8.5-10.1 [facility] Comment on above: Performed By: #### C MP, HSTROPN, BNP #### [facility] [address] [place] [address] Dr. Get Whitten Chloride [Moles/Vol] 100 mmol/L Normal 98-107 [facility] Comment on above: Performed By: #### C MP, HSTROPN, BNP #### [facility] [address] [place] [address] Dr. Get Whitten CO2 [Moles/Vol] 25.1 mmol/L Normal 21.0-32.0 [facility] Comment on above: Performed By: #### C MP, HSTROPN, BNP #### [facility] [address] [address] [address] Get Whitten Creatinine [Mass/Vol] 1.20 mg/dL Normal 0.70-1.30 [facility] Comment on above: Performed By: #### C MP, HSTROPN, BNP #### [facility] [address] [place] [address] Dr. Get Whitten EGFR-AF INDONESIAN >60 Normal >=60 [facility] Comment on above: Performed By: #### C MP, HSTROPN, BNP #### [facility] [address] [place] [address] Dr. Get Whitten EGFR-NON AF INDONESIAN >60 Normal >=60 [facility] Comment on above: Performed By: #### C MP, HSTROPN, BNP #### [facility] [address] [place] [address] Dr. Get Whitten Globulin (S) [Mass/Vol] 4.0 g/dL Normal [facility] Comment on above: Performed By: #### C MP, HSTROPN, BNP #### [facility] [address] [place] [address] Dr. Get Whitten Glucose [Mass/Vol] 110 mg/dL Critically high 74-106 [facility] Comment on above: Performed By: #### C MP, HSTROPN, BNP #### [facility] [address] [place] [address] Dr. Get Whitten Potassium [Moles/Vol] 4.7 mmol/L Normal 3.5-5.1 [facility] Comment on above: Performed By: #### C MP, HSTROPN, BNP #### [facility] [address] [place] [address] Dr. Get Whitten Protein [Mass/Vol] 8.0 g/dL Normal 6.4-8.2 [facility] Comment on above: Performed By: #### C MP, HSTROPN, BNP #### [facility] [address] [place] [address] Dr. Get Whitten Sodium [Moles/Vol] 133 mmol/L Critically low 136-145 Th e [facility] Comment on above: Performed By: #### C MP, HSTROPN, BNP #### [facility] [address] [place] [address] Dr. Get Whitten Urea nitrogen [Mass/Vol] 7.0 mg/dL Normal 7.0-18.0 [facility] Comment on above: Performed By: #### C MP, HSTROPN, BNP #### [facility] [address] [place] [address] Dr. Get Whitten Urea nitrogen/Creatinine [Mass ratio] 5.8 mg/mg Normal [facility] Comment on above: Performed By: #### C MP, HSTROPN, BNP #### [facility] [address] [place] [address] Dr. Gte Whitten PROTIMEon 01-09-2022 INR Coag (PPP) [Relative time] {INR} Normal [facility] Comment on above: Performed By: #### C VDTBH #### [facility] [address] [place] [address] Dr. Get Whitten INR GUIDELINES SEE BELOW Normal [facility] Comment on above: Result Comment: JORGE RED INR: 2.0 - 3.0 CONDITIONS NOT LISTED BELOW 2.5 - 3.5 FOR PROSTHETIC HEART VALVE REPLACEMENT 2.5 - 3.5 RECURRENT THROMBOSIS Performed By: #### C VDTBH #### [facility] [address] [place] [address] Dr. Get Whitten PT Coag (PPP) [Time] 9.8 s Normal 9.0-11.6 [facility] Comment on above: Performed By: #### C VDTBH #### [facility] [address] [place] [address] Dr. Get Whitten PTTon 01-09-2022 aPTT Coag (Bld) [Time] 28.5 s Normal 22.3-36.2 [facility] Comment on above: Performed By: #### C MP #### [facility] [address] [place], [place] [address] Dr. Get Whitten TROPONIN, HIGH SENSITIVITYon 01-09-2022 HSTROP 4.1 pg/mL Normal 4.0-76.1 [facility] Comment on above: Result Comment: CUT- OFF POINTS HAVE BEEN ESTABLISHED BASED ON THE FOURTH UNIVERSAL DEFINITIONS OF MYOCARDIAL INFARCTION. THE UPPER REFERENCE LIMIT (URL) OF TROPONIN, DEFINED THE 99TH PERCENTILE OF cTnI DISTRIBUTION IN A REFERENCE POPULATION, HAS BEEN CONFIRMED THE DECISION THRESHOLD FOR [facility] DIAGNOSIS. Performed By: #### C MP, HSTROPN, BNP #### [facility] [address] [place], [place] [address] Dr. Get Whitten XR CHEST 1 Von 01-09-2022 XR CHEST 1 V EXAMINATION: XR CHES T 1 V HISTORY: Chest pain COMPARISON: Chest x-ray 12/18/2021 TECHNIQUE: Portable chest FINDINGS: Stable linear consolidation within the left lower lobe. No acute consolidation or infiltrate. No pneumothorax or pleural effusion. The cardiac, mediastinal and hilar contours are normal. The visualized osseous structures exhibit no gross abnormality. IMPRESSION: No acute cardiopulmonary abnormality. Electronically authenticated by: JULIO CESAR BUTCHER Date: 2022-01-09 18:21 Normal [facility] Coding Summary.on 12-18-2018 Coding Summary. 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 However, the narrative phrase printed from the coding software may appear abbreviated, or result in slightly different terminology. Coded By: Verona Woodward Date Saved: 12/18/2018 10:51 am Normal [facility] Encounters Encounter Date Encounter Type Care Provider Facility Start: 07-17-2023 End: 07-17-2023 ambulatory [facility] Start: 05-28-2023 Evaluation and management of inpatient STEVEN [facility] Start: 05-28-2023 Evaluation and management of inpatient NOORALDIN CAIT [facility] Start: 05-28-2023 End: 05-28-2023 Evaluation and management of inpatient STEVEN [facility] Start: 05-18-2023 End: 05-18-2023 ambulatory [facility] Start: 04-24-2023 End: 04-25-2023 [facility] Start: 04-21-2023 Evaluation and management of inpatient CAROLEEMERCED ZACKARY [facility] Start: 04-20-2023 End: 04-24-2023 Evaluation and management of inpatient ION SIMS [facility] Start: 04-20-2023 Emergency department [facility] Start: 04-20-2023 End: 04-20-2023 Emergency department patient visit [facility] Start: 01-08-2023 End: 01-09-2023 ambulatory Hernandez Wylie MD Facility:[facility] Start: 12-25-2022 End: 12-26-2022 ambulatory Hernandez Wylie MD Facility:[facility] Start: 11-27-2022 End: 11-28-[address] PEE GUADALUPE . Facility:[facility] Start: 11-24-2022 End: 12-13-[address] PEE GUADALUPE . Facility:[facility] Start: 10-27-2022 End: 10-27-[address] LIZZIE ALEGRE . Facility:[facility] Start: 10-23-2022 End: 10-24-[address] PEE GUADALUPE . Facility:[facility] Start: 01-19-[address] PEE GUADALUPE . Facili ty:[facility] Start: 05-24-[address] PEE GUADALUPE . Facili ty:[facility] Start: 05-16-[address] PEE GUADALUPE . Facili ty:[facility] Start: 04-21-[address] PEE GUADALUPE . Facili ty:[facility] Start: 04-15-2022 End: 04-16-[address] PEE GUADALUPE . Facility:[facility] Start: 03-29-2022 End: 03-31-[address] PEE GUADALUPE . Facility:[facility] Start: 03-27-2022 End: 03-28-2022 Evaluation and management of inpatient DR PEE GUADALUPE . Facility:[facility] Start: 03-23-2022 End: 03-23-[address] PEE GUADALUPE . Facility:[facility] Start: 03-17-2022 End: 03-17-[address] PEE GUADALUPE . Facility:[facility] Start: 01-24-2022 End: 01-24-[address] PEE GUADALUPE . Facility:[facility] Start: 01-09-2022 End: 01-09-[address] LIZZIE ALEGRE . Facility:[facility] Payers Date Payer Category Payer Private Health Insurance 1965 Unknown [id number] 1965 Unknown [id number] 2.16.84 0.1.341808.3.579.2.59 1965 Unknown [id number] 2.16.84 0.1.314567.3.579.2.59 1965 Unknown [id number] 2.16.84 0.1.446825.3.579.2.593 1965 Unknown [id number] 2.16.84 0.1.790553.3.579.2.59 1965 Unknown [id number] 2.16.84 0.1.348249.3.579.2.593 1965 Unknown [id number] 2.16.84 0.1.671875.3.579.2.59 1965 Unknown [id number] 2.16.84 0.1.534545.3.579.2.593 1965 Unknown [id number] 2.16.84 0.1.678276.3.579.2.593 1965 Unknown [id number] 2.16.84 0.1.285553.3.579.2.593 1965 Unknown [id number] 2.16.84 0.1.658572.3.579.2.593 1965 Unknown [id number] 2.16.84 0.1.178778.3.579.2.593 1965 Unknown [id number] 2.16.84 0.1.084571.3.579.2.593 1965 Unknown [id number] 2.16.84 0.1.390302.3.579.2.593 1965 Unknown [id number] 2.16.84 0.1.370225.3.579.2.593 1965 Unknown [id number] 2.16. 840.1.899266.3.579.2.196 1965 Unknown [id number] 2.16. 840.1.307732.3.579.2.196 1959 Medicare [id number] 1959 Private Health Insurance [id number] 1959 Self-pay [id number] Clinical Notes 10-24-2022 to 07-17-2023 Note Date & Type Note Facility 07-17-2023 Note Patient here for [facility]. C/o B/L LE edema, R>L. Says it's red and painful. states he recently injured his groin muscle and has been sedentary. Denies recurrent syncope but gets lightheaded/dizzy. Still has intermittent chest pain, but stress test done while inpatient was negative for ischemia. He was discharged with 30 day event monitor. Patient really does not know what medications he currently is/isn't taking. Review of Systems Constitutional: Positive for malaise/fatigue. Cardiovascular: Positive for chest pain (intermittent), dyspnea on exertion and leg swelling. Neurological: Positive for dizziness and light-headedness. All other systems reviewed and are negative. [facility] 05-28-2023 Note Hospital Medicine Discharge Summary Final Discharge Diagnosis: Syncope Admission Diagnosis: NSTEMI (non-ST elevated myocardial infarction) ([facility]) [I21.4] Hospital course: 58 y.o. male who came from home with syncope. Patient with a medical history of hypertension, migraine headache, seizure, neuropathy, previous episodes of syncopal attack related to cardiac reason. Came in as a transfer for possible new syncope with chest pain resolved with nitroglycerin sublingual and outside facility ER. Ordered stat CBC, CMP, Mag, phosph, EKG and telemetry. Admiting [facility] pt to the stepdown unit and consult [facility] cardiology team. We will follow-up on the labs and follow-up with the cardiology team recommendation # Syncope, dizziness and chest pain: - CT brain showed no acute events. - Stress test was negative for ischemia. - Patient is continue to wearing event monitor and follow up with Cardio and Neurology. # COPD: - Resume Trelegy. # Seizure disorder: - Continue Keppra. # Hypothyroidism, on levothyroxine. Dear Dr. Lesvia MD, Rehan is advised to follow up with you within 1-2 weeks. Follow-up with: Cardiology and Neurology Scheduled appointments: Future Appointments Date Time Provider Department Center 07/06/2023 9:00 AM Génesis Chase NP [facility] Your medication list CHANGE how you take these medications Instructions Last Dose Given Next Dose Due methocarbamol 500 mg tablet Commonly known as: Robaxin What changed: when to take this Take 1 tablet (500 mg) by mouth at bedtime for 10 days. CONTINUE taking these medications Instructions Last Dose Given Next Dose Due albuterol 90 mcg/actuation inhaler aspirin 81 mg EC tablet atorvastatin 10 mg tablet Commonly known as: Lipitor Take 1 tablet (10 mg) by mouth at bedtime. dutasteride 0.5 mg capsule Commonly known as: Avodart levETIRAcetam 750 mg tablet Commonly known as: Keppra levothyroxine 200 mcg tablet Commonly known as: Synthroid, Levoxyl Take 1 tablet (200 mcg) by mouth before breakfast for 95 doses. metoprolol tartrate 25 mg tablet Commonly known as: Lopressor Take 0.5 tablets (12.5 mg) by mouth in the morning and at bedtime. nitroglycerin 0.4 mg SL tablet Commonly known as: Nitrostat Place 1 tablet (0.4 mg) under the tongue every 5 (five) minutes if needed for chest pain. May repeat dose every 5 minutes for up to 3 doses total. Nurtec ODT 75 mg tablet,disintegrating Generic drug: rimegepant tamsulosin 0.4 mg 24 hr capsule Commonly known as: Flomax topiramate 100 mg tablet Commonly known as: Topamax Trelegy Ellipta 100-62.5-25 mcg blister with device Generic drug: egalnyyvsyc-rmgrmyiym-jgmybmvq STOP taking these medications hydrocortisone 10 mg tablet Commonly known as: Cortef voriconazole 200 mg tablet Commonly known as: Vfend Where to Get Your Medications Information about where to get these medications is not yet available Ask your nurse or doctor about these medications methocarbamol 500 mg tablet Rehan is allergic to strawberry and penicillins. Disposition: Home or Self Care Discharge Condition: Stable Code Status: Full Code Diagnostic Results Hematology: Results from last 7 days Lab Units 05/28/23 0002 05/28/23 0001 WBC AUTO 10*3/uL -- 14.05* HEMOGLOBIN g/dL -- 11.6* HEMATOCRIT % -- 34.4* MCV fL -- 100.0* PLATELETS AUTO 10*3/uL -- 232 INR 1.01 -- Chemistry: Results from last 7 days Lab Units 05/28/23 0002 SODIUM mmol/L 133* POTASSIUM mmol/L 3.5 CHLORIDE mmol/L 106 CO2 mmol/L 19* BUN mg/dL 10 CREATININE mg/dL 0.82 GLUCOSE mg/dL 96 MAGNESIUM mg/dL 1.7* CALCIUM mg/dL 9.3 PHOSPHORUS mg/dL 3.0 Results from last 7 days Lab Units 05/28/23 0002 AST U/L 12* ALT U/L 18 ALK PHOS U/L 95 BILIRUBIN TOTAL mg/dL 0.4 Test Results Pending At Discharge: Pending Labs Order Current Status Blood culture, peripheral #1 In process Blood culture, peripheral #2 In process Diet at the time of discharge: regular diet Nutrition Screen Activity: Normal activity as tolerated Objective Blood pressure 141/87, pulse 79, temperature 36.6 ???C (97.8 ???F), temperature source Temporal, resp. rate 18, height 1.854 m (6' 0.99 ), weight 99.2 kg (218 lb 11.1 oz), SpO2 97 %. General: Alert and oriented x3. Cardiology: Normal rate, regular rhythm. Lungs: Clear to auscultation, no wheezes, rales or rhonchi, symmetric air entry. Abdomen: Soft, non tender, non distended. Neurology: No focal neuro deficit noted. Total time for discharge - review of data, exam, discussion with providers and care-team, med-rec and orders, arranging follow up, counseling of patient and/or family and documentation was 45 minutes. Signed Berkley Hammonds MD Hospital Medicine 05/28/2023 2:37 PM [facility] 05-28-2023 Note 05/28/23 1009 Admission Assessment Questions Verify insurance with patient Yes Do you understand medical disease or what brought you into the hospital? Yes Who is your current PCP? Pee Guadalupe Can I schedule a follow up appointment for you at the time of discharge? Yes Do you understand why you are taking your current medications? Yes Are you taking your medications as prescribed? Yes Did patient provide teach back? Yes Would you like use our pharmacy i[facility] to fill your new medications at the time of Discharge? Yes Does the patient have a manager of case assigned to them through their insurance? Yes Living Arrangement (Current/Prior to Hospitalization) Private residence Does the patient have history of HHC or SNF? No Assistive Device Cane Patient's goal for discharge Plan is to discharge home with Was patient reminded that goal for discharge is 11am? Yes Does the patient have transportation at discharge? Yes Type of Residence/Post Acute Needs Private residence Is PT/OT appropriate? No Is PT/OT ordered? No Is SW consult appropriate? No Is SW consult ordered? No Do you understand the benefits of MyChart? Yes Were you able to send link and activate MyChart? MyChart already active [facility] 05-28-2023 Note . Hospital Medicine History and Physical 05/27/2023 11:38 PM THE HOSPITALIST TEAM PREFERS TO USE [employer] FOR COMMUNICATION 7AM-7PM. IF I DO NOT RESPOND WITHIN 15 MINUTES, PLEASE PAGE ME/CALL THROUGH THE PRACTICE ARCHITECT. FROM 7PM-7AM, PLEASE PAGE [phone](COVR) Chief Complaint Syncope. History of Present Illness Rehan Poole is an 58 y.o. male who came from home with syncope. Patient with a medical history of hypertension, migraine headache, seizure, neuropathy, previous episodes of syncopal attack related to cardiac reason. Came in as a transfer for possible new syncope with chest pain resolved with nitroglycerin sublingual and outside facility ER. Ordered stat CBC, CMP, Mag, phosph, EKG and telemetry. Admiting [facility] pt to the stepdown unit and consult [facility] cardiology team. We will follow-up on the labs and follow-up with the cardiology team recommendation Review of System and Physical Exam Heart Rate: [88] 88 Resp: [13] 13 BP: (143)/(82) 143/82 Physical Exam Vitals and nursing note reviewed. Constitutional: Appearance: Normal appearance. He is normal weight. HENT: Head: Normocephalic and atraumatic. Right Ear: Tympanic membrane, ear canal and external ear normal. Left Ear: Tympanic membrane, ear canal and external ear normal. Nose: Nose normal. Mouth/Throat: Mouth: Mucous membranes are moist. Pharynx: Oropharynx is clear. Eyes: Conjunctiva/sclera: Conjunctivae normal. Pupils: Pupils are equal, round, and reactive to light. Cardiovascular: Rate and Rhythm: Normal rate. Pulmonary: Effort: Pulmonary effort is normal. Abdominal: General: Abdomen is flat. Bowel sounds are normal. Musculoskeletal: General: Normal range of motion. Cervical back: Normal range of motion and neck supple. Skin: General: Skin is warm. Capillary Refill: Capillary refill takes 2 to 3 seconds. Neurological: General: No focal deficit present. Mental Status: He is alert. Mental status is at baseline. Psychiatric: Mood and Affect: Mood normal. Thought Content: Thought content normal. Judgment: Judgment normal. Review of Systems All other systems reviewed and are negative. Problem List Patient Active Problem List Diagnosis Date Noted NSTEMI (non-ST elevated myocardial infarction) ([facility]) 05/27/2023 Adrenal insufficiency ([facility]) 04/24/2023 Acute gout 04/20/2023 Hypertension 04/20/2023 Allergic rhinitis 04/20/2023 Benign prostatic hyperplasia without lower urinary tract symptoms 04/20/2023 Cervical radiculopathy 04/20/2023 Diverticulitis of colon 04/20/2023 Fibromyalgia 04/20/2023 Fatigue 04/20/2023 Gastroesophageal reflux disease 04/20/2023 Glaucoma 04/20/2023 Hypo-osmolality and hyponatremia 04/20/2023 Intrinsic asthma 04/20/2023 Irritable bowel syndrome 04/20/2023 Low back pain 04/20/2023 Migraine, unspecified, not intractable, without status migrainosus 04/20/2023 Movement disorder 04/20/2023 Hereditary and idiopathic neuropathy, unspecified 04/20/2023 Myoclonus 04/20/2023 Obstructive sleep apnea syndrome 04/20/2023 Disc displacement, lumbar 04/20/2023 Overweight 04/20/2023 Peripheral venous insufficiency 04/20/2023 Restless legs syndrome 04/20/2023 Syncope 04/20/2023 Acquired hypothyroidism 07/23/2016 Depressive disorder, not elsewhere classified 10/29/2008 Dizziness and giddiness 10/29/2008 Generalized osteoarthrosis, unspecified site 10/29/2008 Mixed hyperlipidemia 10/29/2008 Ostium secundum type atrial septal defect 10/29/2008 Personal history of tobacco use, presenting hazards to health 10/29/2008 Mobitz (type) I (Wenckebach's) atrioventricular block 04/20/2023 Assessment and Plan #Chest pain: -Stepdown admission -Telemetry monitoring -Consult cardiology -Repeating EKG -3 sets of troponin -Sublingual nitroglycerin as needed for chest pain -Chest pain resolved at the time of transfer #Syncope: -History of cardiac syncope -Telemetry monitoring -Consult cardiology -Head CT to rule out acute findings #COPD: -Not an active exacerbation #Seizure disorder: -Continue seizure medication #GI prophylaxis: PPI syncope VTE Prophylaxis: Heparin subcutaneous ----- Focus of this inpatient stay will remain on problems that need acute care setting for care. We will review available studies and will order additional labs, imaging and other studies as appropriate. As needed medicines are ordered as appropriate. VTE Prophylaxis will be ordered as appropriate. Please see above for management plan for individual hospital problems. Home medications are reviewed and will be continued as appropriate. Patient will be continued to be followed during this hospital stay by a member of [facility]. Past Medical History No past medical history on file. Past Surgical History No past surgical history on file. Social History Social History Socioeconomic History Marital status: (more content not included)... [facility] 05-18-2023 Note [place] Electrophysiology Consult Note Reason for visit: hospital follow up HPI: Rehan Poole is a 58 y.o. year old with past medical history of hypertension, migraine headaches, seizure, neuropathy, history of PFO He was just seen at [facility] for syncope / CP, he was suppose to have discharged with an event monitor but no one reached out to patient after discharge and one was not mailed to him was admitted he was scheduled to have a treadmill stress test please found that he had significant electrolyte abnormalities and abnormal thyroid function. Patient was seen by endocrinology was placed on Synthroid, his beta-blockers were reduced and patient steroid dose is changed. he continues to take Toprol tartrate 12.5 mg p.o. patient still endorses chest pain and shortness of breath which worsens with exertion and improves with rest PMH: History reviewed. No pertinent past medical history. PSH: History reviewed. No pertinent surgical history. SH: Social Determinants of Health Tobacco Use: Medium Risk (05/18/2023) Patient History Smoking Tobacco Use: Former Smokeless Tobacco Use: Former Passive Exposure: Not on file Alcohol Use: Not on file Financial Resource Strain: Medium Risk (04/20/2023) Overall Financial Resource Strain (CARDIA) Difficulty of Paying Living Expenses: Somewhat hard Food Insecurity: Unknown (04/20/2023) Hunger Vital Sign Worried About Running Out of Food in the Last Year: Never true Ran Out of Food in the Last Year: Not on file Transportation Needs: Unknown (04/20/2023) PRAPARE - Transportation Lack of Transportation (Medical): No Lack of Transportation (Non-Medical): Not on file Physical Activity: Not on file Stress: Not on file Social Connections: Not on file Intimate Partner Violence: Unknown (04/20/2023) Humiliation, Afraid, Rape, and Kick questionnaire Fear of Current or Ex-Partner: No Emotionally Abused: Not on file Physically Abused: Not on file Sexually Abused: Not on file Depression: Not on file Housing Stability: Unknown (04/20/2023) Housing Stability Vital Sign Unable to Pay for Housing in the Last Year: Not on file Number of Places Lived in the Last Year: Not on file Unstable Housing in the Last Year: No Allergies: Allergies Allergen Reactions [place] Anaphylaxis Penicillins Angioedema Weight: 104kg Visit Vitals BP 130/80 (BP Location: Left arm, Patient Position: Sitting, BP Cuff Size: Adult) Pulse 64 Resp 13 Ht 1.854 m (6' 1 ) Wt 104 kg (229 lb 3.2 oz) SpO2 99% BMI 30.24 kg/m??? Smoking Status Former BSA 2.31 m??? Meds: Current Outpatient Medications on File Prior to Visit Medication Sig Dispense Refill albuterol 90 mcg/actuation inhaler Inhale 2 puffs every 6 (six) hours if needed for wheezing. aspirin 81 mg EC tablet Take 162 mg by mouth in the morning. dutasteride (Avodart) 0.5 mg capsule Take 0.5 mg by mouth in the morning. qlhabrgbsuo-mlmbjbnhh-ecrhmjeo (Trelegy Ellipta) 100-62.5-25 mcg blister with device Inhale 100 mcg in the morning. hydrocortisone (Cortef) 10 mg tablet Take 1 tablet (10 mg) by mouth in the morning AND 0.5 tablets (5 mg) in the morning. 45 tablet 0 levETIRAcetam (Keppra) 750 mg tablet Take 750 mg by mouth in the morning and at bedtime. levothyroxine (Synthroid, Levoxyl) 200 mcg tablet Take 1 tablet (200 mcg) by mouth before breakfast for 95 doses. 90 tablet 0 methocarbamol (Robaxin) 500 mg tablet Take 500 mg by mouth in the morning, at noon, in the evening, and at bedtime. metoprolol tartrate (Lopressor) 25 mg tablet Take 0.5 tablets (12.5 mg) by mouth in the morning and at bedtime. 30 tablet 0 rimegepant (Nurtec ODT) 75 mg tablet,disintegrating Take 75 mg by mouth in the morning. tamsulosin (Flomax) 0.4 mg 24 hr capsule Take 0.4 mg by mouth in the morning. topiramate (Topamax) 100 mg tablet Take 100 mg by mouth in the morning and at bedtime. 100mg in am 200mg in pm voriconazole (Vfend) 200 mg tablet Take 200 mg by mouth in the morning and at bedtime. No current facility-administered medications on file prior to visit. Review of Systems Constitutional: Positive for malaise/fatigue. Cardiovascular: Positive for chest pain, dyspnea on exertion and syncope. All other systems reviewed and are negative. Physical Exam: Constitutional General Appearance: well-nourished, well-developed, appears stated age Level of Distress: comfortable Psychiatric Mental Status: alert, normal affect Orientation: oriented to time, place, and person Insight: good judgement Eyes Lids and Conjunctivae: non-injected, no xanthelasma ENMT Ears: no lesions on external ear Nose: no lesions on external nose Oropharynx: no cyanosis, no pallor Neck Neck: supple, trachea midline Carotid Arteries: bilateral normal upstroke, no bruits Jugular Veins: normal jugular venous pressure Thyroid: not enlarged Lungs Respiratory Effort: unlabored Chest Exam: normal curvature, no (more content not included)... [facility] 04-24-2023 Note Patient given discha rge instructions and education provided regarding meds and appts. EKG called to educate patient about cardiac event monitor instructions. Patient waiting for imeds to deliver. [facility] notified of patient discharge. [facility] 04-23-2023 Note Hospital Medicine Daily Progress Note - 04/23/2023 11:22 AM; Room: [address] [place] [address] Admission: 04/20/2023 4:06 PM; Length of stay: 2 days THE HOSPITALIST TEAM PREFERS TO USE [employer] CHAT FOR COMMUNICATION 7AM-7PM. IF I DO NOT RESPOND WITHIN 15 MINUTES, PLEASE PAGE ME/CALL THROUGH THE PRACTICE ARCHITECT. FROM 7PM-7AM, PLEASE PAGE [phone](COVR) Code Status: Full Code Discharge Destination: home Discharge plannin-3 days Overview Patient is seen for evaluation and management of bradycardia and severe hypothyroidism. Subjective He feels relatively better today Physical Exam Visit Vitals BP (!) 135/92 Pulse 74 Temp 36.8 ???C (98.2 ???F) (Temporal) Resp 15 Intake/Output Summary (Last 24 hours) at 04/23/2023 1122 Last data filed at 04/23/2023 0649 Gross per 24 hour Intake 580 ml Output 1900 ml Net -1320 ml Physical Exam Vitals reviewed. Constitutional: General: He is not in acute distress. Appearance: He is not ill-appearing, toxic-appearing or diaphoretic. HENT: Mouth/Throat: Mouth: Mucous membranes are moist. Cardiovascular: Rate and Rhythm: Normal rate and regular rhythm. Pulses: Normal pulses. Pulmonary: Effort: No respiratory distress. Abdominal: Palpations: Abdomen is soft. Tenderness: There is no abdominal tenderness. Musculoskeletal: Right lower leg: No edema. Left lower leg: No edema. Skin: General: Skin is warm. Capillary Refill: Capillary refill takes less than 2 seconds. Neurological: General: No focal deficit present. Mental Status: He is alert and oriented to person, place, and time. Psychiatric: Mood and Affect: Mood normal. Speech: Speech is delayed. Behavior: Behavior normal. Thought Content: Thought content normal. Estimated body mass index is 32.32 kg/m??? as calculated from the following: Height as of this encounter: 1.854 m (6' 1 ). Weight as of this encounter: 111 kg (245 lb). Active Inpatient Problems Principal Problem: Syncope Active Problems: Hyponatremia COPD exacerbation (CMS/HCC) Hypokalemia Mobitz (type) I (Wenckebach's) atrioventricular block Assessment and Plan Severe hypothyroidism with sinus bradycardia (now in NSR): Recurrent syncope, likely 2/2 above: Thyroid function is gradually improving. Synthroid increased to 200 mcg which will need repeat TSH and T4 in 4 to 6 weeks. Concern for adrenal insufficiency- Cosyntropin test performed, not done ideally, ACTH is sent and pending to [place] if primary vs secondary process. Change hydrocortisone 100 every 8 to 10 mg a.m. and 5 mg p.m. outpatient follow-up for endocrine services for ACTH (send out test) and further adrenal imaging. SEKOU resolved AECOPD (mild): Continue doxy for 3 days. Duonebs. Seizure disorder: Continue home antiepileptic regimen. History of PFO History of migraines: Start PRN rizatriptan. VTE Prophylaxis: Heparin subcutaneous Scheduled Meds aspirin, 81 mg, oral, Daily dutasteride, 0.5 mg, oral, Daily famotidine, 20 mg, oral, Daily furosemide, 20 mg, intravenous, Once gentamicin (Garamycin) 80 mg in sodium chloride irrigation solution 0.9 % 1,000 mL irrigation, 80 mg, irrigation, Once heparin (porcine), 5,000 Units, subcutaneous, q12h CHRISTOPHER hydrocortisone, 10 mg, oral, Daily hydrocortisone, 5 mg, oral, Daily ipratropium-albuteroL, 3 mL, nebulization, q6h while awake levETIRAcetam, 750 mg, oral, BID levothyroxine, 200 mcg, oral, Daily metoprolol tartrate, 12.5 mg, oral, BID polyethylene glycol, 17 g, oral, BID tamsulosin, 0.4 mg, oral, Daily topiramate, 100 mg, oral, Daily topiramate, 200 mg, oral, Nightly traZODone, 100 mg, oral, Nightly Oxygen Therapy, Pertinent Investigations Hematology: Results from last 7 days Lab Units 04/23/23 0556 04/22/23 0538 WBC AUTO 10*3/uL 8.96 8.42 HEMOGLOBIN g/dL 13.2 12.5* HEMATOCRIT % 40.4 37.5* MCV fL 100.5* 98.2* PLATELETS AUTO 10*3/uL 198 188 Chemistry: Results from last 7 days Lab Units 04/23/23 0556 04/22/23 0538 04/21/23 0835 SODIUM mmol/L 130* 130* 129* POTASSIUM mmol/L 4.2 3.1* 3.7 CHLORIDE mmol/L 104 102 102 CO2 mmol/L 18* 19* 18* BUN mg/dL 11 13 12 CREATININE mg/dL 1.12 1.18 1.18 GLUCOSE mg/dL 139* 105* 88 MAGNESIUM mg/dL 2.1 1.7* 1.8* CALCIUM mg/dL 9.3 8.7 9.0 Results from last 7 days Lab Units 04/20/23 2030 AST U/L 12* ALT U/L 8 ALK PHOS U/L 48 BILIRUBIN TOTAL mg/dL 0.6 Historical Values: (Includes values prior to this admission) Lab Results Component Value Date TSH 45.61 (H) 04/23/2023 T3FREE 1.9 (L) 04/21/2023 FREET4 0.59 (L) 04/23/2023 CORTISOL 9.8 (H) 04/22/2023 CORTISOL 8.3 04/22/2023 No results found for: [id number], IRON, TIBC, C3, C4, JADA, CANCA, ASO, PSA, CEA, CA125, CA199, AFP, CA153 Imaging Transthoracic echo (TTE) complete 1 1 [facility] Heart Station [address] [place] [address] [phone] (fax) Echocardiogram-[facility] Name: REHAN (more content not included)... [facility] 04-22-2023 Note Hospital Medicine Daily Progress Note - 04/22/2023 3:22 PM; Room: [address] [place] [address] Admission: 04/20/2023 4:06 PM; Length of stay: 1 days THE HOSPITALIST TEAM PREFERS TO USE [employer] CHAT FOR COMMUNICATION 7AM-7PM. IF I DO NOT RESPOND WITHIN 15 MINUTES, PLEASE PAGE ME/CALL THROUGH THE PRACTICE ARCHITECT. FROM 7PM-7AM, PLEASE PAGE [phone](COVR) Code Status: Full Code Discharge Destination: home Discharge plannin-3 days Overview Patient is seen for evaluation and management of bradycardia and severe hypothyroidism. Subjective Patient admits to mild MEDEROS which he attributes to his typical migraine He denies angina and admits to intermittent palpitations. Physical Exam Visit Vitals BP 103/80 Pulse 64 Temp 36 ???C (96.8 ???F) Resp 13 Intake/Output Summary (Last 24 hours) at 04/22/2023 1522 Last data filed at 04/22/2023 1247 Gross per 24 hour Intake 1160 ml Output 700 ml Net 460 ml Physical Exam Vitals reviewed. Constitutional: General: He is not in acute distress. Appearance: He is not ill-appearing, toxic-appearing or diaphoretic. HENT: Mouth/Throat: Mouth: Mucous membranes are moist. Cardiovascular: Rate and Rhythm: Normal rate and regular rhythm. Pulses: Normal pulses. Pulmonary: Effort: No respiratory distress. Abdominal: Palpations: Abdomen is soft. Tenderness: There is no abdominal tenderness. Musculoskeletal: Right lower leg: No edema. Left lower leg: No edema. Skin: General: Skin is warm. Capillary Refill: Capillary refill takes less than 2 seconds. Neurological: General: No focal deficit present. Mental Status: He is alert and oriented to person, place, and time. Psychiatric: Mood and Affect: Mood normal. Speech: Speech is delayed. Behavior: Behavior normal. Thought Content: Thought content normal. Estimated body mass index is 32.32 kg/m??? as calculated from the following: Height as of this encounter: 1.854 m (6' 1 ). Weight as of this encounter: 111 kg (245 lb). Active Inpatient Problems Principal Problem: Syncope Active Problems: Hyponatremia COPD exacerbation (CMS/HCC) Hypokalemia Mobitz (type) I (Wenckebach's) atrioventricular block Assessment and Plan # Severe hypothyroidism with sinus bradycardia (now in NSR): # Recurrent syncope, likely 2/2 above: - TSH 188, T4 undetectable, T3 1.9. - Resumed patients home synthroid 175 mcg. S/p 200 mcg IV given on 04/22. - Seen and evaluated by cardiology that have since signed off. No indication for PPM. - TTE showed preserved EF without RWMA. Pt unable to tolerate treadmill stress test. - [facility] does not provide inpatient endocrinology consultation. [facility] and [facility] 's were called to transfer patient for inpatient endocrinology evaluation. They both reported they do not provide that service. I called [facility] to transfer patient and they reported that they are tight on beds and would be unable to except transfer, although they do have inpatient endocrinology consultation. They recommended they speak with their on-call umbrella tipper hand at [employer] ([phone]) for teleconsultation. I spoke with Dr. Solis who recommended increasing PO synthroid to 200 mcg daily and repeating TSH with reflex T4 in 4-6 weeks. She reported no need for further IV synthroid. - Upon further evaluation of patient's dispense history, levothyroxine has not been filled since November 2022. Patient, however, reports compliance with medication and taking it as prescribed. # Low AM cortisol level (1.8): - Follow up ACTH. - Cortrosyn stimulation test was not done ideally. Administered at 1230 with serum cortisol level drawn 41 min later (8.3) and 95 minutes later (9.8). - Will start hydrocortisone 100mg IV q 8 hrs. # Euvolemic hyponatremia (resolving): - Unknown if acute or chronic. Possibly SIADH 2/2 hypothyroidism although urine studies not consistent with SIADH although obtained after IVF. Continue to trend Na. # SEKOU (resolving): - Avoid nephrotoxic agents, monitor I's and O's. Monitor renal function and electrolytes daily. # AECOPD (mild): Continue doxy for 3 days. Duonebs. # Seizure disorder: Continue home antiepileptic regimen. # History of PFO # History of migraines: Start PRN rizatriptan. VTE Prophylaxis: Heparin subcutaneous Scheduled Meds aspirin, 81 mg, oral, Daily doxycycline, 100 mg, oral, BID dutasteride, 0.5 mg, oral, Daily famotidine, 20 mg, oral, Daily furosemide, 20 mg, intravenous, Once gentamicin (Garamycin) 80 mg in sodium chloride irrigation solution 0.9 % 1,000 mL irrigation, 80 mg, irrigation, Once heparin (porcine), 5,000 Units, subcutaneous, q12h CHRISTOPHER ipratropium-albuteroL, 3 mL, nebulization, q6h while awake levETIRAcetam, 750 mg, oral, BID [START ON 04/23/2023] levothyroxine, 200 mcg, oral, Daily metoprolol tartrate, 12.5 mg, oral, BID polyethylene glycol, 17 g, oral, BID tamsulosin, 0.4 mg, oral, Daily topiram (more content not included)... [facility] 04-21-2023 Note Hospital Medicine Daily Progress Note - 04/21/2023 4:00 PM; Room: [address] [place] [address] Admission: 04/20/2023 4:06 PM; Length of stay: 0 days THE HOSPITALIST TEAM PREFERS TO USE [employer] FOR COMMUNICATION 7AM-7PM. IF I DO NOT RESPOND WITHIN 15 MINUTES, PLEASE PAGE ME/CALL THROUGH THE PRACTICE ARCHITECT. FROM 7PM-7AM, PLEASE PAGE [phone](COVR) Code Status: Full Code Discharge Destination: home Discharge plannin-3 days Overview Patient is seen for evaluation and management of bradycardia and severe hypothyroidism. Subjective patient has no acute complaints at this time. He reports previous compliance with his levothyroxine taking it 1 hour prior to his breakfast daily. He denies angina and admits to intermittent palpitations. Physical Exam Visit Vitals BP (!) 114/92 Pulse 69 Temp 36.6 ???C (97.9 ???F) (Temporal) Resp 20 Intake/Output Summary (Last 24 hours) at 04/21/2023 1600 Last data filed at 04/21/2023 1500 Gross per 24 hour Intake 2630.01 ml Output 1050 ml Net 1580.01 ml Physical Exam Vitals reviewed. Constitutional: General: He is not in acute distress. Appearance: He is not ill-appearing, toxic-appearing or diaphoretic. HENT: Mouth/Throat: Mouth: Mucous membranes are moist. Cardiovascular: Rate and Rhythm: Normal rate and regular rhythm. Pulses: Normal pulses. Pulmonary: Effort: No respiratory distress. Abdominal: Palpations: Abdomen is soft. Tenderness: There is no abdominal tenderness. Musculoskeletal: Right lower leg: No edema. Left lower leg: No edema. Skin: General: Skin is warm. Capillary Refill: Capillary refill takes less than 2 seconds. Neurological: General: No focal deficit present. Mental Status: He is alert and oriented to person, place, and time. Psychiatric: Mood and Affect: Mood normal. Speech: Speech is delayed. Behavior: Behavior normal. Thought Content: Thought content normal. Estimated body mass index is 32.32 kg/m??? as calculated from the following: Height as of this encounter: 1.854 m (6' 1 ). Weight as of this encounter: 111 kg (245 lb). Active Inpatient Problems Principal Problem: Syncope Active Problems: Hyponatremia COPD exacerbation (CMS/HCC) Hypokalemia Mobitz (type) I (Wenckebach's) atrioventricular block Assessment and Plan # Severe hypothyroidism with sinus bradycardia: # Recurrent syncope: - TSH 188, T4 undetectable, T3 1.9. - Resumed patients home synthroid 175 mcg. Given 200 mcg IV. - Seen and evaluated by cardiology that have since signed off. No indication for PPM. - Follow up results of TTE. Pt unable to tolerate treadmill stress test. # Low AM cortisol level (1.8): - Follow up ACTH tomorrow AM and repeat cortisol level. # Euvolemic hyponatremia (stable): - Unknown if acute or chronic. Possibly SIADH 2/2 hypothyroidism. Follow up urine studies. Continue to trend Na. DC IVF. # SEKOU (resolving): - Avoid nephrotoxic agents, monitor I's and O's. Monitor renal function and electrolytes daily. # AECOPD (mild): Continue doxy for 3 days. Duonebs. # Seizure disorder: Continue home antiepileptic regimen. # History of PFO # History of migraines VTE Prophylaxis: Heparin subcutaneous Scheduled Meds aspirin, 81 mg, oral, Daily doxycycline, 100 mg, oral, BID dutasteride, 0.5 mg, oral, Daily famotidine, 20 mg, oral, Daily furosemide, 20 mg, intravenous, Once gentamicin (Garamycin) 80 mg in sodium chloride irrigation solution 0.9 % 1,000 mL irrigation, 80 mg, irrigation, Once heparin (porcine), 5,000 Units, subcutaneous, q12h CHRISTOPHER ipratropium-albuteroL, 3 mL, nebulization, q6h while awake levETIRAcetam, 750 mg, oral, BID levothyroxine, 175 mcg, oral, Daily metoprolol tartrate, 12.5 mg, oral, BID tamsulosin, 0.4 mg, oral, Daily topiramate, 100 mg, oral, Daily topiramate, 200 mg, oral, Nightly traZODone, 100 mg, oral, Nightly Pertinent Investigations Hematology: Results from last 7 days Lab Units 04/21/2383404/20/232029 WBC AUTO 10*3/uL 8.95 9.44 HEMOGLOBIN g/dL 13.7 14.3 HEMATOCRIT % 39.7 42.7 MCV fL 96.8 97.0 PLATELETS AUTO 10*3/uL 179 212 Chemistry: Results from last 7 days Lab Units 04/21/23 0804/20/232029 SODIUM mmol/L 129* 129* POTASSIUM mmol/L 3.7 3.6 CHLORIDE mmol/L 102 96* CO2 mmol/L 18* 19* BUN mg/dL 12 10 CREATININE mg/dL 1.18 1.33* GLUCOSE mg/dL 88 75 MAGNESIUM mg/dL 1.8* 1.9 CALCIUM mg/dL 9.0 9.9 Results from last 7 days Lab Units 04/20/232029 AST U/L 12* ALT U/L 8 ALK PHOS U/L 48 BILIRUBIN TOTAL mg/dL 0.6 Historical Values: (Includes values prior to this admission) Lab Results Component Value Date TSH 188.64 (HH) 04/20/2023 T3FREE 1.9 (L) 04/21/2023 FREET4 <0.25 (L) 04/20/2023 CORTISOL 1.8 (L) 04/21/2023 No results found for: [id number], IRON, TIBC, C3, C4, JADA, CANCA, ASO, PSA, CEA, CA125, CA199, AFP, CA153 Imaging ECG 12 lead Normal sinus rhythm Low voltage QRS ST & T wave (more content not included)... [facility] 04-21-2023 Note ---- Attestation signed by Thong Gabriel MD at 04/22/2023 10:24 AM By using the attestations below, the signing clinician agrees that I have read and verify that the documentation has been personally reviewed by me and ensure that the documentation accurately reflects the encounter. GC: I personally saw this patient on the day of the encounter, performed the ulloa portion(s) of the service and participated in the management and confirm the resident's documentation. Please note there may be an additional personal documentation from me. No singificant events on tele. Will address hypothyroidism first. ---- Cardiology Progress Note Subjective Subjective: Patient was seen and examined at bedside. The patient was lying comfortably in bed. Patient reports having occasional chest pain that radiates down his left arm. Patient denies any acute chest pain, shortness of breath, abdominal pain, nausea or vomiting. Objective Objective: Patient Vitals for the past 24 hrs: BP Temp Temp src Pulse Resp SpO2 Height Weight 04/21/23 0857 -- -- -- 71 13 95 % -- -- 04/21/23 0800 106/87 36.6 ???C (97.9 ???F) Temporal 74 13 97 % -- -- 04/21/23 0400 103/79 -- -- 63 13 90 % -- -- 04/21/23 0217 -- -- -- 60 12 93 % -- -- 04/21/23 0000 126/88 -- -- 69 15 -- -- -- 04/20/232050 126/88 36.7 ???C (98.1 ???F) Temporal 78 16 96 % 1.854 m (6' 1 ) 111 kg (245 lb) 04/20/23 1840 128/86 -- -- 61 10 97 % -- -- 04/20/23 1815 158/90 -- -- -- -- -- -- -- 04/20/23 1456 (!) 145/101 -- -- 58 18 95 % -- -- Physical Examination: Physical Exam Constitutional: General: He is not in acute distress. Appearance: Normal appearance. HENT: Head: Normocephalic and atraumatic. Right Ear: External ear normal. Left Ear: External ear normal. Nose: Nose normal. Eyes: Extraocular Movements: Extraocular movements intact. Cardiovascular: Rate and Rhythm: Normal rate and regular rhythm. Heart sounds: Normal heart sounds. Pulmonary: Breath sounds: Normal breath sounds. No wheezing or rales. Abdominal: General: There is no distension. Palpations: Abdomen is soft. Tenderness: There is no abdominal tenderness. Musculoskeletal: Right lower leg: No edema. Left lower leg: No edema. Neurological: Mental Status: He is alert and oriented to person, place, and time. Psychiatric: Mood and Affect: Mood normal. Behavior: Behavior normal. Relevant Lab Results Encounter Date: 04/20/23 ECG 12 lead Result Value Ventricular Rate 59 Atrial Rate 59 MI Interval 132 QRS DURATION 86 QT Interval 430 QTC CALCULATION(BAZETT) 425 P Gordon 43 R-Gordon -12 T Wave Gordon 73 Impression Sinus bradycardia Low voltage QRS Cannot rule out Anterior infarct , age undetermined Abnormal ECG No previous ECGs available Confirmed by Jerald CARNEY, PETAR Solorzano ([id number]) on 04/20/2023 4:36:07 PM Lab Results Component Value Date TROPONINI 0.00 04/20/2023 No echocardiogram results found for the past 12 months No nuclear medicine results found for the past 12 months Relevant Imaging Results ECG 12 lead Sinus bradycardia Low voltage QRS Cannot rule out Anterior infarct , age undetermined Abnormal ECG No previous ECGs available Confirmed by Jerald CARNEY, PETAR Solorzano ([id number]) on 04/20/2023 4:36:07 PM Assessment: Bradycardia, with concerns for AV block possibly secondary to uncontrolled hypothyroidism Hypothyroidism, TSH 188.64 on oral levothyroxine 100 mcg at home Syncope, possibly secondary to electrolyte derangement Essential hypertension History of PFO Plan: No indication for pacemaker placement at this time. Recommend endocrinology consult for treatment of underlying severe hypothyroidism as this may be contributing to his bradycardia Recommend tele monitoring.Patient cannot undergo exercise stress test due to limited ambulation Cardiology team will sign off. Please call with any questions. Helen Calixto PGY-2, Internal medicine resident [facility] 04-20-2023 Note Hospital Medicine History and Physical 04/20/2023 7:28 PM THE HOSPITALIST TEAM PREFERS TO USE [employer] FOR COMMUNICATION 7AM-7PM. IF I DO NOT RESPOND WITHIN 15 MINUTES, PLEASE PAGE ME/CALL THROUGH THE PRACTICE ARCHITECT. FROM 7PM-7AM, PLEASE PAGE [phone](COVR) Chief Complaint No chief complaint on file. History of Present Illness Rehan Poole is an 58 y.o. male who came from home with past medical history of hypertension, migraine headaches, seizure, neuropathy, history of PFO presented to [facility] as a transfer from [facility] ER because of new onset of Mobitz type II arrhythmia. Patient reports that he had few syncopal episodes over the last 4 days. Last syncope was yesterday. He states that he has a hard time breathing and then is not able to catch his breath and then he feels weak and then just collapses. Today, he was seen by his PCP and was sent to ER for evaluation. In ER, patient's EKG showed Mobitz type II arrhythmia and patient was transferred to [facility] for possible pacemaker placement. Here, repeated EKG did not show Mobitz type II arrhythmia but showed sinus bradycardia so, patient will be admitted to the hospital for cardiac work-up and telemetry. Patient also reports that over the last 2 days he has been sick with a cold. He had decreased oral intake because of nausea. He was started on azithromycin and took first dose yesterday. Patient also complains of migraine headaches, lightheadedness with body position changes. Patient also reports intermittent chest pain, not sure if it is exertional. Blood work and the [facility] ER showed hyponatremia with a sodium 127, hypokalemia with potassium 3.4 and creatinine 1.6. Patient will have repeated labs here. Review of System and Physical Exam Heart Rate: [58] 58 Resp: [18] 18 BP: (145-158)/(90-101) 158/90 Physical Exam Constitutional: Appearance: Normal appearance. HENT: Head: Normocephalic. Eyes: Conjunctiva/sclera: Conjunctivae normal. Cardiovascular: Rate and Rhythm: Regular rhythm. Bradycardia present. Heart sounds: Normal heart sounds. No murmur heard. Pulmonary: Effort: Pulmonary effort is normal. No respiratory distress. Breath sounds: No wheezing, rhonchi or rales. Comments: Diminished breath sounds bilaterally. Abdominal: General: Abdomen is flat. Palpations: Abdomen is soft. Tenderness: There is no abdominal tenderness. Musculoskeletal: General: No swelling. Right lower leg: No edema. Left lower leg: No edema. Skin: Findings: No rash. Neurological: General: No focal deficit present. Mental Status: He is alert and oriented to person, place, and time. Psychiatric: Mood and Affect: Mood normal. Behavior: Behavior normal. Thought Content: Thought content normal. Judgment: Judgment normal. Review of Systems as mentioned in HPI Problem List Patient Active Problem List Diagnosis Date Noted Hyponatremia 04/20/2023 COPD exacerbation ([facility]) 04/20/2023 Acute gout 04/20/2023 Hypertension 04/20/2023 Allergic rhinitis 04/20/2023 Benign prostatic hyperplasia without lower urinary tract symptoms 04/20/2023 Cervical radiculopathy 04/20/2023 Diverticulitis of colon 04/20/2023 Fibromyalgia 04/20/2023 Fatigue 04/20/2023 Gastroesophageal reflux disease 04/20/2023 Glaucoma 04/20/2023 Hypo-osmolality and hyponatremia 04/20/2023 Intrinsic asthma 04/20/2023 Irritable bowel syndrome 04/20/2023 Low back pain 04/20/2023 Migraine, unspecified, not intractable, without status migrainosus 04/20/2023 Movement disorder 04/20/2023 Hereditary and idiopathic neuropathy, unspecified 04/20/2023 Myoclonus 04/20/2023 Obstructive sleep apnea syndrome 04/20/2023 Disc displacement, lumbar 04/20/2023 Overweight 04/20/2023 Peripheral venous insufficiency 04/20/2023 Restless legs syndrome 04/20/2023 Syncope 04/20/2023 Hypokalemia 04/20/2023 Acquired hypothyroidism 07/23/2016 Depressive disorder, not elsewhere classified 10/29/2008 Dizziness and giddiness 10/29/2008 Generalized osteoarthrosis, unspecified site 10/29/2008 Mixed hyperlipidemia 10/29/2008 Ostium secundum type atrial septal defect 10/29/2008 Personal history of tobacco use, presenting hazards to health 10/29/2008 Mobitz (type) I (Wenckebach's) atrioventricular block 04/20/2023 Assessment and Plan Recurrent syncope Sinus bradycardia COPD exacerbation SEKOU Hyponatremia Hypokalemia Hypertension Migraines Seizure disorder History of PFO Plan: Patient is admitted to stepdown telemetry bed. Fall precautions. Cardiology follows the patient. He will have stress test and echo tomorrow. N.p.o. after midnight. I will order BNP, TSH because of patient's sinus bradycardia and history of hypothyroidism, and troponin. For hyponatremia, patient will be on normal saline 100 mL/h, Lasix 20 mg IV once. Regular diet. Potassium was replaced. For COPD exacerbation, we will discontinue azithromycin (more content not included)... [facility] 11-27-2022 Note PROCEDURE: XR ANKLE LT 2V HISTORY: Unspecified fall , left ankle pain COMPARISON: None. FINDINGS: BONES:No fracture, acute abnormality, or significant arthropathy. SOFT TISSUES:Mild anterior lateral soft tissue swelling. EFFUSION:None visible. OTHER: Negative. IMPRESSION: 1. No acute bone abnormality. Electronically authenticated by: SHEN SOSA Date: 2022-11-27 11:27 [facility] 10-24-2022 Note PROCEDURE: XR HIP LT 2 3V W PELVIS HISTORY: Idiopathic osteoarthritis ; acute left hip pain after falling COMPARISON: None. FINDINGS: BONES:No fracture, acute abnormality, or significant arthropathy. SOFT TISSUES:No visible soft tissue swelling. EFFUSION:None visible. OTHER: Negative. IMPRESSION: 1. No acute bone abnormality or significant degenerative joint disease. Electronically authenticated by: SHEN SOSA Date: 2022-10-24 09:51 [facility] Summary Purpose Family History No Family History Records FoundNo Family History Records FoundNo Family History Records FoundNo Family History Records Found Advance Directives No Advanced Directives Records FoundNo Advanced Directives Records FoundNo Advanced Directives Records FoundNo Advanced Directives Records Found Additional Source Comments (unrecognized sect ion and content) No Status Records FoundNo Status Records FoundNo Status Records FoundNo Status Records Found INFORMATION SOURCE (unrecogn ized section and content) DATE CREATED AUTHOR 02/15/2019 Alberto Lemus [facility] DATE CREATED AUTHOR AUTHOR'S ORGANIZ ATION 12/22/2022 [facility] DATE CREATED AUTHOR AUTHOR'S ORGANIZ ATION 03/06/2023 [facility] DATE CREATED AUTHOR AUTHOR'S ORGANIZ ATION 07/17/2023 [facility] FOR RECORDS PERTAINING TO PATIENTS WHO ARE OR HAVE BEEN ENROLLED IN A CHEMICAL DEPENDENCY/SUBSTANCEABUSE PROGRAM, SOME INFORMATION MAY BE OMITTED. This clinical summary was aggregated from multiple sources. Caution should be exercised in using it in the provision of clinical care. This summary normalizes information from multiple sources, and as a consequence, information in this document may materially change the coding, format and clinical context of patient data. In addition, data may be omitted in some cases. CLINICAL DECISIONS SHOULD BE BASED ON THE PRIMARY CLINICAL RECORDS. [employer] [facility]. provides no warranty or guarantee of the accuracy or completeness of information in this document.
--- NOTE | 2023-07-21 12:15 | ED.GENADUL1 ---
HPI - General Adult General Chief complaint: Extremity Injury, Lower Stated complaint: PAIN IN BOTH LEGS Time Seen by Provider: 07/21/23 12:01 Source: patient Mode of arrival: walk-in History of Present Illness HPI narrative: as patient's here claiming bilateral leg edema. He said he saw his primary care doctor approximately three weeks ago and was started on Lasix. He does not believe that is been any improvement of the edema. He does not have any shortness of breath wheezing or congestion. He has been seen by [facility] cardiology and they are about to place a loop recorder because he's had some syncopal episodes. He states that many many years ago he had a patch put on his heart. He does not have a coronary stents or bypass procedures. He's not had any heaviness squeezing discomfort in his chest. He's not been running a fever and really hasn't had any viral symptomatology recently. Related Data Home Medications Medication Instructions Recorded Confirmed metoprolol tartrate 50 mg tablet 50 mg PO BID 12/24/22 07/21/23 topiramate 100 mg tablet 100 mg PO DAILY 12/24/22 07/21/23 trazodone 100 mg tablet 100 mg PO QPM 12/24/22 07/21/23 aspirin 81 mg chewable tablet 162 mg PO DAILY 12/25/22 07/21/23 (Aspirin Childrens) atorvastatin 10 mg tablet 10 mg PO QPM 05/25/23 07/21/23 nitroglycerin 0.4 mg sublingual 0.4 mg sublingual DAILY PRN chest 05/25/23 07/21/23 tablet pain tizanidine 4 mg tablet 4 mg PO QPM 05/25/23 07/21/23 isosorbide mononitrate 30 mg 30 mg PO QAM 07/21/23 07/21/23 tablet,extended release 24 hr levothyroxine 200 mcg tablet 200 mcg PO QAM 07/21/23 07/21/23 ranolazine 500 mg tablet,extended 500 mg PO Q12H 07/21/23 07/21/23 release,12 hr topiramate 100 mg tablet 200 mg PO BEDTIME 07/21/23 07/21/23 Allergies Allergy/AdvReac Type Severity Reaction Status Date / Time Penicillins Allergy Severe Verified 06/21/23 01:46 strawbery Allergy Uncoded 06/21/23 01:46 [facility] Medical History (Updated 07/21/23 @ 13:34 by Derrell Kendall MD) Hypertension ?I10 - Essential (primary) hypertension (ICD-10) Hyperlipidemia ?E78.5 - Hyperlipidemia, unspecified (ICD-10) Migraine ?G43.909 - Migraine, unspecified, not intractable, without status migrainosus (ICD-10) Enlarged prostate ?N40.0 - Benign prostatic hyperplasia without lower urinary tract symptoms (ICD-10) Upper back pain ?M54.9 - Dorsalgia, unspecified (ICD-10) Back pain ?M54.9 - Dorsalgia, unspecified (ICD-10) Neck pain ?M54.2 - Cervicalgia (ICD-10) Seizure ?R56.9 - Unspecified convulsions (ICD-10) Numbness and tingling ?R20.0 - Anesthesia of skin (ICD-10) ?R20.2 - Paresthesia of skin (ICD-10) Heartburn ?R12 - Heartburn (ICD-10) Acid reflux ?K21.9 - Gastro-esophageal reflux disease without esophagitis (ICD-10) Hypothyroid ?E03.9 - Hypothyroidism, unspecified (ICD-10) Emphysema of lung ?J43.9 - Emphysema, unspecified (ICD-10) Surgical History H/O cervical spine surgery ?Z98.890 - Other specified postprocedural states (ICD-10) H/O heart surgery ?Z98.890 - Other specified postprocedural states (ICD-10) H/O lumbosacral spine surgery ?Z98.890 - Other specified postprocedural states (ICD-10) Social History Smoking status: Never smoker Exam Narrative Exam Narrative: patient's vital signs are stable he appears in no distress oximetry is 96-98 percent on room air any complete sentences. He's not diaphoretic or clammy. There is no cyanosis. Cognition and mentation are normal. Auscultation of chest shows the lungs to be completely clear with no wheezes rales or rhonchi. Heart sounds are normal with no arrhythmia. He has no jugular vein distention. Extremities show 2+ edema below the knees with trace edema above the knees. Skin integument are warm and dry with good arterial pulses. He has no abdominal pain. Neurological examination is completely normal. Constitutional Vital Signs, click to edit/add: Last Vital Signs Temp 98.5 F 07/21/23 11:56 Pulse 67 07/21/23 12:50 Resp 20 07/21/23 12:50 BP 122/77 07/21/23 12:30 Pulse Ox 93 L 07/21/23 12:50 O2 Del Method Room Air 07/21/23 12:14 Course Vital Signs Vital signs: Vital Signs Temperature 98.5 F 07/21/23 11:56 Pulse Rate 73 07/21/23 11:56 Respiratory Rate 22 07/21/23 11:56 Blood Pressure 141/83 07/21/23 11:56 Pulse Oximetry 99 07/21/23 11:56 Oxygen Delivery Method Room Air 07/21/23 11:56 Temperature 98.5 F 07/21/23 11:56 Pulse Rate 67 07/21/23 12:50 Respiratory Rate 20 07/21/23 12:50 Blood Pressure 122/77 07/21/23 12:30 Pulse Oximetry 93 L 07/21/23 12:50 Oxygen Delivery Method Room Air 07/21/23 12:14 Medical Decision Making MDM Narrative Medical decision making narrative: patient's laboratory testing including his kidney function/BNP/troponin are all normal. EKG does not show any ischemia. Chest x-ray is free of any infiltrates or evidence of congestive heart failure. Despite attempts at outpatient diuresis he's failed to respond. I spoke with his primary care doctor would like to come in and have him admitted for inpatient diuresis therapy. Lab Data Labs: Lab Results 07/21/23 Range/Units 12:35 WBC 11.5 H (4.0-11.0) 10^3/uL RBC 3.85 L (4.70-6.10) 10^6/uL Hgb 12.1 L (14.0-18.0) g/dL Hct 37.4 L (42.0-54.0) % MCV 97.1 H (80.0-94.0) fL MCH 31.4 (25.9-34.0) pg MCHC 32.4 (29.9-35.2) g/dL RDW 13.6 (11.0-15.0) % Plt Count 266 (150-450) 10^3/uL MPV 9.8 (9.5-13.5) fL Neut % (Auto) 66.0 (43.0-75.0) % Lymph % (Auto) 24.8 (20.5-60.0) % Ritchie % (Auto) 7.5 (1.7-12.0) % Eos % (Auto) 0.3 L (0.9-7.0) % Baso % (Auto) 0.3 (0.2-2.0) % Neut # (Auto) 7.6 H (1.4-6.5) 10^3/uL Lymph # (Auto) 2.9 (1.2-3.8) 10^3/uL Ritchie # (Auto) 0.9 H (0.3-0.8) 10^3/uL Eos # (Auto) 0.0 (0.0-0.7) 10^3/uL Baso # (Auto) 0.0 (0.0-0.1) 10^3/uL Abs Immat Gran (auto) 0.13 H (0.00-0.03) 10^3/uL Imm/Tot Granulo (auto) 1.1 H (0.0-0.5) % Sodium 129 L (136-145) mmol/L Potassium 3.7 (3.5-5.1) mmol/L Chloride 97 L (98-107) mmol/L Carbon Dioxide 22.3 (21.0-32.0) mmol/L Anion Gap 13.4 BUN 10.0 (7.0-18.0) mg/dL Creatinine 0.95 (0.70-1.30) mg/dL Est GFR ( Amer) >60 (>=60) Est GFR (Non-Af Amer) >60 (>=60) BUN/Creatinine Ratio 10.5 Glucose 96 (74-106) mg/dL Calcium 9.2 (8.5-10.1) mg/dL Total Bilirubin 0.3 (0.2-1.0) mg/dL AST 13 L (15-37) U/L ALT 19 (16-63) U/L Alkaline Phosphatase 109 (46-116) U/L Troponin I High Sens 4.6 (4.0-76.1) pg/mL NT-Pro-B Natriuret Pep 185.0 (<=900.0) pg/mL Total Protein 6.9 (6.4-8.2) g/dL Albumin 3.0 L (3.4-5.0) g/dL Globulin 3.9 g/dL Albumin/Globulin Ratio 0.8 Discharge Plan Discharge Chief Complaint: Extremity Injury, Lower Clinical Impression: Bilateral edema of lower extremity Patient Disposition: Admitted as Observation Time of Disposition Decision: 13:34 Prescriptions / Home Meds: No Action metoprolol tartrate 50 mg tablet 50 mg PO BID topiramate 100 mg tablet 100 mg PO DAILY trazodone 100 mg tablet 100 mg PO QPM atorvastatin 10 mg tablet 10 mg PO QPM nitroglycerin 0.4 mg tablet, sublingual 0.4 mg sublingual DAILY PRN (Reason: chest pain) tizanidine 4 mg tablet 4 mg PO QPM topiramate 100 mg tablet 200 mg PO BEDTIME aspirin [Aspirin Childrens] 81 mg tablet,chewable 162 mg PO DAILY isosorbide mononitrate 30 mg tablet extended release 24 hr 30 mg PO QAM levothyroxine 200 mcg tablet 200 mcg PO QAM ranolazine 500 mg tablet extended release 12 hr 500 mg PO Q12H Referrals: Patrice Guadalupe MD [Primary Care Provider] - 1 week
--- NOTE | 2023-07-21 12:18 | XR_ITS ---
[address] [address] Patient Name: ELENA TREJO MRN: [id number] date: 1965 Sex: M Assigned Patient Location: ER Current Patient Location: ER Accession/Order Number: [id number] Exam Date: 07/21/2023 12:55 Report Date: 07/21/2023 13:17 At the request of: SHIVA NOVAK Procedure: XR chest 1V PROCEDURE: XR chest 1V DATE: 07/21/2023 11:55 AM SURGICAL ATTENDANT COMPARISONS: 05/27/2023 CLINICAL INDICATION: 58 years Male dyspnea FINDINGS: The cardiomediastinal silhouette and pulmonary vasculature are within normal limits. The lungs are clear. There is no evidence of pleural effusion or pneumothorax. XR/XR chest 1V IMPRESSION: Chest radiograph is within normal limits. Electronically authenticated by: FLOWER LOPEZ Date: 07/21/2023 13:17
[2023-07-21] MEDS: BUMETANIDE 1 MG/4 ML VIAL 2 MG IVP (12:27)
[2023-07-21 12:43] LABS: Basophils Percent Auto 0.3 % (0.2-2.0); Eosinophils Percent Auto 0.3 % (0.9-7.0); Hematocrit 37.4 % (42.0-54.0); Hemoglobin 12.1 g/dL (14.0-18.0); Immature Granulocytes Abs Auto 0.13 10^3/uL (0.00-0.03); Immature Granulocytes Pct Auto 1.1 % (0.0-0.5); Lymphocytes Absolute Auto 2.9 10^3/uL (1.2-3.8); Lymphocytes Percent Auto 24.8 % (20.5-60.0); Mean Corpuscular HGB Conc 32.4 g/dL (29.9-35.2); Mean Corpuscular Hemoglobin 31.4 pg (25.9-34.0); Mean Corpuscular Volume 97.1 fL (80.0-94.0); Mean Platelet Volume 9.8 fL (9.5-13.5); Monocytes Absolute Auto 0.9 10^3/uL (0.3-0.8); Monocytes Percent Auto 7.5 % (1.7-12.0); Neutrophils Absolute Auto 7.6 10^3/uL (1.4-6.5); Platelet Count 266 10^3/uL (150-450); Red Blood Count 3.85 10^6/uL (4.70-6.10); Red Cell Distribution Width 13.6 % (11.0-15.0); White Blood Count 11.5 10^3/uL (4.0-11.0)
[2023-07-21 13:11] LABS: Alanine Aminotransferase 19 U/L (16-63); Albumin Globulin Ratio 0.8; Alkaline Phosphatase 109 U/L (46-116); Anion Gap 13.4; Aspartate Amino Transferase 13 U/L (15-37); BUN Creatinine Ratio 10.5; Bilirubin Total 0.3 mg/dL (0.2-1.0); Calcium 9.2 mg/dL (8.5-10.1); Carbon Dioxide 22.3 mmol/L (21.0-32.0); Chloride 97 mmol/L (98-107); Estimated GFR (African America >60 (>=60); Estimated GFR (Non-African Ame >60 (>=60); Globulin 3.9 g/dL; Glucose 96 mg/dL (74-106); Potassium 3.7 mmol/L (3.5-5.1); Sodium 129 mmol/L (136-145); Total Protein 6.9 g/dL (6.4-8.2); Troponin I High Sensitivity 4.6 pg/mL (4.0-76.1)
--- OUTSIDE RECORDS SUMMARY | 2023-07-21 13:51 | XMS_ITS | CCD ---
Author Name Unknown Address [address] [facility] [address] [place] [address] Organization [facility] Care Team Providers Care Foreign Banknote Teller Name Role Phone LESVIA ., DR GLASGOW Attending Unavailable HOY ., [...] Translations: [PENICILLINS] Drug allergy (disorder) 05-30-2015 [facility] (2 sources) strawberry allergenic extract; Translations: [STRAWBERRY] Drug Allergy 05-13-2016 [facility] Problems Active Problems Problem Classification Problem [...] 10-29-2022 Chronic Other aftercare (1 source) Other residential (current) drug therapy; Translations: [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 Normal [facility] 30 The patient is Moderately Stable - Low risk of patient condition declining or worsening The patient's goals for the shift include comfort The clinical goals for the shift include VSS Normal [facility] APTTon 05-28-2023 ACTIVATED PARTIAL THROMBOPLASTIN TIME IN PPP BY COAGULATION ASSAY 33.8 Seconds Normal 25.0-35.0 [facility] Comment on above: Result Comment: Clin ical significance of the APTT is questionable in the presence of heparin. Performed By: #### L [id number] #### [facility] ([facility]) [address] [place] [address] B-TYPE NATRIURETIC PEPTIDEon 05-28-2023 Natriuretic peptide B (Bld) [Mass/Vol] 76 pg/mL Normal 0-100 [facility] Comment on above: Performed By: #### L [id number] #### [facility] ([facility]) [address] [place] [address] BLOOD CULTUREon 05-28-2023 Bacteria identified Cx Nom (Bld) No growth at 5 days Normal [facility] Comment on above: Performed By: #### L [id number] #### [facility] ([facility]) [address] [place] [address] Order Comment: From a different site than #1. Performed By: #### L [id number] #### [facility] ([facility]) [address] [place] [address] CBC WITH AUTO DIFFERENTIALon 05-28-2023 Basophils (Bld) [#/Vol] 0.05 10*3/uL Normal 0.00-0.20 [facility] Comment on above: Performed By: #### L [id number] #### [facility] ([facility]) [address] [place] [address] Basophils/100 WBC (Bld) 0.4 % Normal 0.0-1.0 [facility] Comment on above: Performed By: #### L [id number] #### [facility] ([facility]) [address] [place] [address] Eosinophils (Bld) [#/Vol] 0.02 10*3/uL Normal 0.00-0.50 [facility] Comment on above: Performed By: #### L [id number] #### [facility] ([facility]) [address] [address] Eosinophils/100 WBC (Bld) 0.1 % Normal 0.0-6.0 [facility] Comment on above: Performed By: #### L [id number] #### [facility] ([facility]) [address] [place] [address] Erythrocyte distribution width (RBC) [Ratio] 17.5 % High 11.5-15.0 [facility] Comment on above: Performed By: #### L [id number] #### [facility] ([facility]) [address] [place] [address] ERYTHROCYTE MEAN CORPUSCULAR HEMOGLOBIN CONCENTRATION (G/DL) BY AUTOMATED 33.7 g/dL Normal 32.0-35.0 [facility] Comment on above: Performed By: #### L [id number] #### [facility] ([facility]) [address] [place] [address] Hematocrit (Bld) [Volume fraction] 34.4 % Low 39.0-55.0 [facility] Comment on above: Performed By: #### L [id number] #### [facility] ([facility]) [address] [place] [address] Hemoglobin (Bld) [Mass/Vol] 11.6 g/dL Low 13.0-17.0 [facility] Comment on above: Performed By: #### L [id number] #### [facility] ([facility]) [address] [place] [address] Immature granulocytes (Bld) [#/Vol] 0.16 10*3/uL Normal 0.00-0.20 [facility] Comment on above: Performed By: #### L [id number] #### [facility] ([facility]) [address] [place] [address] Immature granulocytes/100 WBC (Bld) 1.1 % High 0.0-1.0 [facility] Comment on above: Performed By: #### L [id number] #### [facility] ([facility]) [address] [place] [address] Lymphocytes (Bld) [#/Vol] 2.52 10*3/uL Normal 1.20-4.00 [facility] Comment on above: Performed By: #### L [id number] #### [facility] ([facility]) [address] [place] [address] Lymphocytes/100 WBC (Bld) 17.9 % Low 20.0-45.0 [facility] Comment on above: Performed By: #### L [id number] #### [facility] ([facility]) [address] [place] [address] MCH (RBC) [Entitic mass] 33.7 pg High 27.0-33.0 [facility] Comment on above: Performed By: #### L [id number] #### [facility] ([facility]) [address] [place] [address] MCV (RBC) [Entitic vol] 100.0 fL High 82.0-98.0 [facility] Comment on above: Performed By: #### L [id number] #### [facility] [address] [place] [address] Monocytes (Bld) [#/Vol] 1.27 10*3/uL High 0.10-1.00 [facility] Comment on above: Performed By: #### L [id number] #### [facility] ([facility]) [address] [place] [address] Monocytes/100 WBC (Bld) 9.0 % Normal 5.0-12.0 [facility] Comment on above: Performed By: #### L [id number] #### [facility] ([facility]) [address] [place] [address] Neutrophils (Bld) [#/Vol] 10.03 10*3/uL High 1.60-7.60 [facility] Comment on above: Performed By: #### L [id number] #### [facility] ([facility]) [address] [place] [address] Neutrophils/100 WBC (Bld) 71.5 % Normal 40.0-72.0 [facility] Comment on above: Performed By: #### L [id number] #### [facility] ([facility]) [address] [place] [address] NRBC (PER 100 WBCS) BY AUTOMATED COUNT 0.0 % Normal 0 [facility] Comment on above: Performed By: #### L [id number] #### [facility] ([facility]) [address] [place] [address] PLATELETS (10*3/UL) IN BLOOD AUTOMATED COUNT 232 10*3/uL Normal 150-400 [facility] Comment on above: Performed By: #### L [id number] #### [facility] ([facility]) [address] [place] [address] RBC (Bld) [#/Vol] 3.44 10*6/uL Low 4.20-5.70 [facility] Comment on above: Performed By: #### L [id number] #### [facility] ([facility]) [address] [place] [address] WBC (Bld) [#/Vol] 14.05 10*3/uL High 4.00-10.60 [facility] Comment on above: Performed By: #### L [id number] #### [facility] ([facility]) [address] [place] [address] COMPREHENSIVE METABOLIC PANE Dawit 05-28-2023 Albumin [Mass/Vol] 4.2 g/dL Normal 3.5-5.7 [facility] Comment on above: Performed By: #### L [id number] #### [facility] [address] [place] [address] ALP [Catalytic activity/Vol] 95 U/L Normal 34-104 [facility] Comment on above: Performed By: #### L [id number] #### [facility] [address] [place] [address] ALT [Catalytic activity/Vol] 18 U/L Normal 7-52 [facility] Comment on above: Performed By: #### L [id number] #### [facility] ([facility]) [address] [place] [address] Anion gap [Moles/Vol] 12 mmol/L Normal 7-20 [facility] Comment on above: Performed By: #### L [id number] #### [facility] ([facility]) [address] [place] [address] AST [Catalytic activity/Vol] 12 U/L Low 13-39 [facility] Comment on above: Performed By: #### L [id number] #### [facility] ([facility]) [address] [place] [address] Bilirubin [Mass/Vol] 0.4 mg/dL Normal 0.3-1.0 [facility] Comment on above: Performed By: #### L [id number] #### [facility] [address] [place] [address] Calcium [Mass/Vol] 9.3 mg/dL Normal 8.6-10.3 [facility] Comment on above: Performed By: #### L [id number] #### [facility] [address] [place] [address] Chloride [Moles/Vol] 106 mmol/L Normal 98-107 [facility] Comment on above: Performed By: #### L [id number] #### [facility] [address] [place] [address] CO2 [Moles/Vol] 19 mmol/L Low 21-31 [facility] Comment on above: Performed By: #### L [id number] #### [facility] [address] [place] [address] Creatinine [Mass/Vol] 0.82 mg/dL Normal 0.70-1.30 [facility] Comment on above: Performed By: #### L [id number] #### [facility] [address] [place] [address] GLOMERULAR FILTRATION RATE ML/MIN/1.73 SQ M.PREDICTED 101.8 mL/min/1.73m*2 Normal >60.0 [facility] Comment on above: Result Comment: The [facility]???s estimated glomerular filtration rate (eGFR) will [...] individuals. Performed By: #### L [id number] #### [facility] ([facility]) [address] [place] [address] Glucose [Mass/Vol] 96 mg/dL Normal 70-100 [facility] Comment on above: Performed By: #### L [id number] #### [facility] ([facility]) [address] [place] [address] Potassium [Moles/Vol] 3.5 mmol/L Normal 3.5-5.1 [facility] Comment on above: Performed By: #### L [id number] #### [facility] ([facility]) [address] [place] [address] Protein [Mass/Vol] 6.9 g/dL Normal 6.0-8.3 [facility] Comment on above: Performed By: #### L [id number] #### [facility] ([facility]) [address] [place] [address] Sodium [Moles/Vol] 133 mmol/L Low 136-145 [facility] Comment on above: Performed By: #### L [id number] #### [facility] ([facility]) [address] [place] [address] Urea nitrogen [Mass/Vol] 10 mg/dL Normal 7-25 [facility] Comment on above: Performed By: #### L [id number] #### [facility] ([facility]) [address] [place] [address] UREA NITROGEN/CREATININE (MASS RATIO) IN SER/PLAS 12.[address] [facility] Comment on above: Performed By: #### L [id number] #### [facility] ([facility]) [address] [place] [address] CONSULTon 05-28-2023 CONSULT -- Attestation signed by Williams Cabrera MD at 05/28/2023 4:45 PM I personally saw and examined the patient on the same date of service as resident/fellow Blanca Smalls. I discussed the findings and therapeutic plan with the resident/fellow Blanca Smalls. I agree with the documentation, except [...] History No family history on file. Allergies Ellijay and Penicillins Medications Medications Prior to Admission [...] the past (more content not included)... Normal [facility] CT HEAD WO IV CONTRASTon CT [...] IMPRESSION: *No acute intracranial findings. Approved by:Adelfo DegrootUxswmdhvwj88/13/2023 12:47 AM. IAraceli,have reviewed the image(s) and agree with the findings in this report. Electronically signed: Araceli Moseley. Normal [facility] ETHANOLon 05-28-2023 ETHANOL (MG/DL) IN SER/PLAS <[address] [facility] Comment on above: Performed By: #### L [id number] #### [facility] ([facility]) [address] [place] [address] ETHANOL CALCULATED (%) Normal [facility] Comment on above: Performed By: #### L [id number] #### [facility] [address] [place] [address] FOLATEon 05-28-2023 FOLATE (NG/ML) IN SER/PLAS 7.00 ng/mL Normal 6.6-1000 [facility] Comment on above: Performed By: #### L [id number] #### [facility] ([facility]) [address] [place] [address] HEMOGLOBIN A1Con 05-28-2023 Glucose [Mass/Vol] 114 mg/dL Normal [facility] Comment on above: Performed By: #### L [id number] #### [facility] [address] [place] [address] HbA1c (Bld) [Mass fraction] 5.6 % Normal 4.0-6.0 [facility] Comment on above: Performed By: #### L [id number] #### [facility] [address] [place] [address] LACTIC ACID WITH 4 HOUR REFL EXon 05-28-2023 LACTATE (MMOL/L) IN SER/PLAS 0.7 mmol/L Normal 0.5-2.2 [facility] Comment on above: Performed By: #### L [id number] #### [facility] ([facility]) [address] [place] [address] LIPID PANELon 05-28-2023 CHOL/HDL 2.7 mg/dL Normal [facility] Comment on above: Performed By: #### L [id number] #### [facility] ([facility]) [address] [place] [address] Cholesterol [Mass/Vol] 115 mg/dL Low 120-200 [facility] Comment on above: Performed By: #### L [id number] #### [facility] ([facility]) [address] [place] [address] Magnesium [Mass/Vol] 72 mg/dL Normal 40-149 [facility] Comment on above: Result Comment: TRIG LYCERIDE REFERENCE RANGE: 20 YEARS AND OLDER CARDIOVASCULAR RISK LESS THAN 150 mg/dL LOW RISK 150 TO 199 mg/dL BORDERLINE RISK 200 mg/dL AND GREATER HIGH RISK Performed By: #### L [id number] #### [facility] ([facility]) [address] [place] [address] Magnesium [Mass/Vol] 58 mg/dL Normal 0-160 [facility] Comment on above: Performed By: #### L [id number] #### [facility] ([facility]) [address] [place] [address] Magnesium [Mass/Vol] 43 mg/dL Normal 23-92 [facility] Comment on above: Performed By: #### L [id number] #### [facility] ([facility]) [address] [place] [address] NON HDL CHOL. (LDL+VLDL) [address] [facility] Comment on above: Performed By: #### L [id number] #### [facility] ([facility]) [address] [place] [address] TOTAL VLDL-C 14 mg/dL Normal 0-40 [facility] Comment on above: Performed By: #### L [id number] #### [facility] ([facility]) [address] [place] [address] MAGNESIUMon 05-28-2023 Magnesium [Mass/Vol] 1.7 mg/dL Low 1.9-2.7 [facility] Comment on above: Performed By: #### L [id number] #### [facility] ([facility]) [address] [place] [address] PHOSPHORUSon 05-28-2023 Magnesium [Mass/Vol] 3.0 mg/dL Normal 2.5-5.0 [facility] Comment on above: Performed By: #### L [id number] #### [facility] ([facility]) [address] [place] [address] POCT GLUCOSE METER UNSOLICIT ED RESULTSon 05-28-2023 Glucose [Mass/Vol] 97 mg/dL Normal 70-105 [facility] Comment on above: Order Comment: Waive d Testing in the ED is performed under the ED CLIA certificate #[id number]. Result Comment: [email or web address] Performed By: #### L [id number] #### [facility] ([facility]) [address] [facility] [place] [address] Glucose [Mass/Vol] 101 mg/dL Normal 70-105 [facility] Comment on above: Order Comment: Waive d Testing in the ED is performed under the ED CLIA certificate #[id number]. Result Comment: [email or web address] [email or web address] Performed By: #### L [id number] #### [facility] ([facility]) [address] [place] [address] PROTIME-INRon 05-28-2023 INR IN PPP BY COAGULATION ASSAY 1.01 Normal 0.90-1.10 [facility] Comment on above: Result Comment: ACCC [...] 1995;[id number]. Performed By: #### L [id number] #### [facility] ([facility]) [address] [place] [address] PROTHROMBIN TIME (PT) IN PPP BY COAGULATION ASSAY 13.3 Seconds Normal 12.3-14.8 [facility] Comment on above: Performed By: #### L [id number] #### [facility] ([facility]) [address] [place] [address] T4, FREEon 05-28-2023 THYROXINE (T4) FREE (NG/DL) IN SER/PLAS 1.90 ng/dL High 0.71-1.85 [facility] Comment on above: Performed By: #### L [id number] #### [facility] ([facility]) [address] [place] [address] TOXICOLOGY PANEL URINEon AMPHETAMINE+METHAMPH ETAMINE SCREEN (PRESENCE) IN URINE Negative Normal Negative [facility] Comment on above: Performed By: #### L [id number] #### [facility] ([facility]) [address] [place] [address] BARBITURATES PRESENCE IN URINE BY SCREEN METHOD Negative Normal Negative [facility] Comment on above: Performed By: #### L [id number] #### [facility] ([facility]) [address] [place] [address] Benzodiazepines Ql (U) Negative Normal Negative [facility] Comment on above: Performed By: #### L [id number] #### [facility] ([facility]) [address] [place] [address] CANNABINOID (PRESENCE) IN URINE BY SCREEN METHOD Negative Normal Negative [facility] Comment on above: Performed By: #### L [id number] #### [facility] ([facility]) [address] [place] [address] Cocaine Ql (U) Negative Normal Negative [facility] Comment on above: Performed By: #### L [id number] #### [facility] ([facility]) [address] [place] [address] METHADONE (PRESENCE) IN URINE BY SCREEN METHOD Negative Normal Negative [facility] Comment on above: Performed By: #### L [id number] #### [facility] ([facility]) [address] [place] [address] OPIATES (PRESENCE) IN URINE BY SCREEN METHOD Negative Normal Negative [facility] Comment on above: Performed By: #### L [id number] #### [facility] ([facility]) [address] [place] [address] PHENCYCLIDINE PRESENCE IN URINE BY SCREEN METHOD Negative Normal Negative [facility] Comment on above: Performed By: #### L [id number] #### [facility] ([facility]) [address] [place] [address] Propoxyphene Screen Ql (U) Negative Normal Negative [facility] Comment on above: Performed By: #### L [id number] #### [facility] ([facility]) [address] [place] [address] TRICYCLIC ANTIDEPRESSANTS (PRESENCE) IN URINE Negative Normal Negative [facility] Comment on above: Performed By: #### L [id number] #### [facility] ([facility]) [address] [place] [address] TROPONIN Ion 05-28-2023 Troponin I.cardiac [Mass/Vol] 0.01 ng/mL Normal 0.00-0.04 [facility] Comment on above: Performed By: #### L [id number] #### [facility] ([facility]) [address] [place] [address] Troponin I.cardiac [Mass/Vol] 0.02 ng/mL Normal 0.00-0.04 [facility] Comment on above: Performed By: #### L [id number] #### [facility] ([facility]) [address] [place] [address] Troponin I.cardiac [Mass/Vol] 0.01 ng/mL Normal 0.00-0.04 [facility] Comment on above: Performed By: #### L [id number] #### [facility] ([facility]) [address] [place] [address] TSH3 REFLEX TO FT4on 023 THYROTROPIN (MIU/L) IN SER/PLAS BY DETECTION LIMIT <= 0.05 MIU/L 0.15 mIU/L Low 0.34-5.60 [facility] Comment on above: Performed By: #### L [id number] #### [facility] ([facility]) [address] [place] [address] URINALYSIS WITH REFLEX CULTU REon 05-28-2023 BILIRUBIN, TOTAL PRESENCE IN URINE Negative Normal Negative [facility] Comment on above: Order Comment: Micro scopics not performed on urines with negative chemical reactions unless requested on original order. Performed By: #### L [id number] #### [facility] ([facility]) [address] [place] [address] Clarity (U) Clear Normal Clear [facility] Comment on above: Order Comment: Micro scopics not performed on urines with negative chemical reactions unless requested on original order. Performed By: #### L [id number] #### [facility] ([facility]) [address] [place] [address] Color (U) Yellow Normal Yellow [facility] Comment on above: Order Comment: Micro scopics not performed on urines with negative chemical reactions unless requested on original order. Performed By: #### L [id number] #### [facility] ([facility]) [address] [place] [address] Glucose (U) [Mass/Vol] Negative Normal Negative [facility] Comment on above: Order Comment: Micro scopics not performed on urines with negative chemical reactions unless requested on original order. Performed By: #### L [id number] #### [facility] ([facility]) [address] [place] [address] HEMOGLOBIN PRESENCE IN URINE Negative Normal Negative [facility] Comment on above: Order Comment: Micro scopics not performed on urines with negative chemical reactions unless requested on original order. Performed By: #### L [id number] #### [facility] ([facility]) [address] [place] [address] Ketones Ql (U) Trace Abnormal Negative [facility] Comment on above: Order Comment: Micro scopics not performed on urines with negative chemical reactions unless requested on original order. Performed By: #### L [id number] #### [facility] ([facility]) [address] [place] [address] LEUKOCYTE ESTERASE PRESENCE IN URINE BY TEST STRIP Negative Normal Negative [facility] Comment on above: Order Comment: Micro scopics not performed on urines with negative chemical reactions unless requested on original order. Performed By: #### L [id number] #### [facility] ([facility]) [address] [place] [address] NITRITE PRESENCE IN URINE Negative Normal Negative [facility] Comment on above: Order Comment: Micro scopics not performed on urines with negative chemical reactions unless requested on original order. Performed By: #### L [id number] #### [facility] ([facility]) [address] [place] [address] pH (U) 6.0 [pH] Normal 5.0-8.0 [facility] Comment on above: Order Comment: Micro scopics not performed on urines with negative chemical reactions unless requested on original order. Performed By: #### L [id number] #### [facility] ([facility]) [address] [place] [address] Protein (U) [Mass/Vol] Negative Normal Negative [facility] Comment on above: Order Comment: Micro scopics not performed on urines with negative chemical reactions unless requested on original order. Performed By: #### L [id number] #### [facility] ([facility]) [address] [place] [address] Specific gravity (U) [Rel density] 1.019 Normal 1.015-1.020 [facility] Comment on above: Order Comment: Micro scopics not performed on urines with negative chemical reactions unless requested on original order. Performed By: #### L [id number] #### [facility] ([facility]) [address] [place] [address] UROBILINOGEN (EU/DL) IN URINE 2.0 EU/dL Abnormal Negative [facility] Comment on above: Order Comment: Micro scopics not performed on urines with negative chemical reactions unless requested on original order. Performed By: #### L [id number] #### [facility] ([facility]) [address] [place] [address] VITAMIN B12on 05-28-2023 Cobalamin (Vitamin B12) [Mass/Vol] 119 pg/mL Low 180-914 [facility] Comment on above: Result Comment: REFE RENCE RANGES: 180-914 pg/mL Normal 145-179 pg/mL Indeterminate <145 pg/mL Deficient Performed By: #### L [id number] #### [facility] ([facility]) [address] [place] [address] Office Visiton 05-18-2023 Follow-up visit [id number] Rehan Poole 1965 M Date Provider Department Center 05/18/2023 GÉNESIS SCHERER CARD [facility] No family history on file Level of Service:77415 SC OFFICE/OUTPATIENT ESTABLISHED MOD MDM 30-39 MIN Reason for Visit and Comments: Follow-up [715843] Normal [facility] 30on 04-24-2023 30 Problem: Pain - [...] goals for the shift include VSS Normal [facility] 30 The patient is Moderately Stable [...] maintained within prescribed range Outcome: Progressing Normal [facility] BASIC METABOLIC PANELon - Anion gap [Moles/Vol] 12 mmol/L Normal 7-20 [facility] Comment on above: Performed By: #### L [id number] #### [facility] ([facility]) [address] [place] [address] Calcium [Mass/Vol] 9.3 mg/dL Normal 8.6-10.3 [facility] Comment on above: Performed By: #### L [id number] #### [facility] ([facility]) [address] [place] [address] Chloride [Moles/Vol] 106 mmol/L Normal 98-107 [facility] Comment on above: Performed By: #### L [id number] #### [facility] [address] [place] [address] CO2 [Moles/Vol] 21 mmol/L Normal 21-31 [facility] Comment on above: Performed By: #### L [id number] #### [facility] ([facility]) [address] [place] [address] Creatinine [Mass/Vol] 1.20 mg/dL Normal 0.70-1.30 [facility] Comment on above: Performed By: #### L [id number] #### [facility] ([facility]) [address] [place] [address] GLOMERULAR FILTRATION RATE ML/MIN/1.73 SQ M.PREDICTED 70.1 mL/min/1.73m*2 Normal >60.0 [facility] Comment on above: Result Comment: The [facility]???s estimated glomerular filtration rate (eGFR) will [...] individuals. Performed By: #### L [id number] #### [facility] ([facility]) [address] [place] [address] Glucose [Mass/Vol] 98 mg/dL Normal 70-100 [facility] Comment on above: Performed By: #### L [id number] #### [facility] ([facility]) [address] [place] [address] Potassium [Moles/Vol] 3.8 mmol/L Normal 3.5-5.1 [facility] Comment on above: Performed By: #### L [id number] #### [facility] ([facility]) [address] [place] [address] Sodium [Moles/Vol] 135 mmol/L Low 136-145 [facility] Comment on above: Performed By: #### L [id number] #### [facility] ([facility]) [address] [place] [address] Urea nitrogen [Mass/Vol] 10 mg/dL Normal 7-25 [facility] Comment on above: Performed By: #### L [id number] #### [facility] ([facility]) [address] [place] [address] UREA NITROGEN/CREATININE (MASS RATIO) IN SER/PLAS 8.[address] [facility] Comment on above: Performed By: #### L [id number] #### [facility] ([facility]) [address] [place] [address] CBCon 04-24-2023 Erythrocyte distribution width (RBC) [Ratio] 17.1 % High 11.5-15.0 [facility] Comment on above: Performed By: #### L [id number] #### [facility] ([facility]) [address] [place] [address] ERYTHROCYTE MEAN CORPUSCULAR HEMOGLOBIN CONCENTRATION (G/DL) BY AUTOMATED 33.3 g/dL Normal 32.0-35.0 [facility] Comment on above: Performed By: #### L [id number] #### [facility] ([facility]) [address] [place] [address] Hematocrit (Bld) [Volume fraction] 35.1 % Low 39.0-55.0 [facility] Comment on above: Performed By: #### L [id number] #### [facility] ([facility]) [address] [place] [address] Hemoglobin (Bld) [Mass/Vol] 11.7 g/dL Low 13.0-17.0 [facility] Comment on above: Performed By: #### L [id number] #### [facility] ([facility]) [address] [place] [address] MCH (RBC) [Entitic mass] 32.7 pg Normal 27.0-33.0 [facility] Comment on above: Performed By: #### L [id number] #### [facility] ([facility]) [address] [place] [address] MCV (RBC) [Entitic vol] 98.0 fL Normal 82.0-98.0 [facility] Comment on above: Performed By: #### L [id number] #### [facility] ([facility]) [address] [place] [address] PLATELETS (10*3/UL) IN BLOOD AUTOMATED COUNT 216 10*3/uL Normal 150-400 [facility] Comment on above: Performed By: #### L [id number] #### [facility] ([facility]) [address] [place] [address] RBC (Bld) [#/Vol] 3.58 10*6/uL Low 4.20-5.70 [facility] Comment on above: Performed By: #### L [id number] #### [facility] ([facility]) [address] [place] [address] WBC (Bld) [#/Vol] 11.41 10*3/uL High 4.00-10.60 [facility] Comment on above: Performed By: #### L [id number] #### [facility] ([facility]) [address] [place] [address] DSon 04-24-2023 DS Admission Admitted 04/20/2023 for [...] Medications These medications were sent to [facility] - [place], [place] - [address] [place] [address] [address] [facility] [place] [address], [facility] [address] hydrocortisone 10 mg tablet levothyroxine 200 mcg tablet metoprolol tartrate 25 mg tablet Activity Patient currently has no discharge activity orders Diet Patient currently has no discharge diet orders Allergies [place] and Penicillins Hospital Course Rehan Poole is an 58 y.o. male who came from home with past medical history of hypertension, migraine headaches, seizure, neuropathy, history of PFO presented to [facility] as a transfer Concern for [...] hydrocortisone. Case was discussed with endocrinology at [facility] for potential transfer. Advised to change to [...] CO2 19 (more content not included)... Normal [facility] MAGNESIUMon 04-24-2023 Magnesium [Mass/Vol] 1.9 mg/dL Normal 1.9-2.7 [facility] Comment on above: Performed By: #### L [id number] #### [facility] ([facility]) [address] [place] [address] 30on 04-23-2023 30 The patient is Moderately Stable - Low risk of patient condition declining or worsening The patient's goals for the shift include comfort/rest The clinical goals for the shift include VSS Over the shift, the patient did not make progress toward the following goals. Barriers to progression include hypothyroidism. Recommendations to address these barriers include synthroid. Normal [facility] 30 The patient is Moderately Stable [...] and behaviors that affect risk of falls [place] fall precautions as indicated by assessment Educate [...] and prevent overall improvement and discharge Normal [facility] BASIC METABOLIC PANELon 10-0 Anion gap [Moles/Vol] 12 mmol/L Normal -20 [facility] Comment on above: Performed By: #### L [id number] #### [facility] ([facility]) [address] [place] [address] Calcium [Mass/Vol] 9.3 mg/dL Normal 8.6-10.3 [facility] Comment on above: Performed By: #### L [id number] #### [facility] ([facility]) [address] [place] [address] Chloride [Moles/Vol] 104 mmol/L Normal 98-107 [facility] Comment on above: Performed By: #### L [id number] #### [facility] ([facility]) [address] [place] [address] CO2 [Moles/Vol] 18 mmol/L Low 21-31 [facility] Comment on above: Performed By: #### L [id number] #### [facility] ([facility]) [address] [place] [address] Creatinine [Mass/Vol] 1.12 mg/dL Normal 0.70-1.30 [facility] Comment on above: Performed By: #### L [id number] #### [facility] ([facility]) [address] [place] [address] GLOMERULAR FILTRATION RATE ML/MIN/1.73 SQ M.PREDICTED 76.1 mL/min/1.73m*2 Normal >60.0 [facility] Comment on above: Result Comment: The [facility]???s estimated glomerular filtration rate (eGFR) will [...] individuals. Performed By: #### L [id number] #### [facility] ([facility]) [address] [place] [address] Glucose [Mass/Vol] 139 mg/dL High 70-100 [facility] Comment on above: Performed By: #### L [id number] #### [facility] ([facility]) [address] [place] [address] Potassium [Moles/Vol] 4.2 mmol/L Normal 3.5-5.1 [facility] Comment on above: Performed By: #### L [id number] #### [facility] ([facility]) [address] [place] [address] Sodium [Moles/Vol] 130 mmol/L Low 136-145 [facility] Comment on above: Performed By: #### L [id number] #### [facility] [address] [place] [address] Urea nitrogen [Mass/Vol] 11 mg/dL Normal 7-25 [facility] Comment on above: Performed By: #### L [id number] #### [facility] ([facility]) [address] [place] [address] UREA NITROGEN/CREATININE (MASS RATIO) IN SER/PLAS 9.[address] [facility] Comment on above: Performed By: #### L [id number] #### [facility] ([facility]) [address] [place] [address] CBCon 04-23-2023 Erythrocyte distribution width (RBC) [Ratio] 17.0 % High 11.5-15.0 [facility] Comment on above: Performed By: #### L [id number] #### [facility] ([facility]) [address] [place] [address] ERYTHROCYTE MEAN CORPUSCULAR HEMOGLOBIN CONCENTRATION (G/DL) BY AUTOMATED 32.7 g/dL Normal 32.0-35.0 [facility] Comment on above: Performed By: #### L [id number] #### [facility] ([facility]) [address] [place] [address] Hematocrit (Bld) [Volume fraction] 40.4 % Normal 39.0-55.0 [facility] Comment on above: Performed By: #### L [id number] #### [facility] [address] [place] [address] Hemoglobin (Bld) [Mass/Vol] 13.2 g/dL Normal 13.0-17.0 [facility] Comment on above: Performed By: #### L [id number] #### [facility] ([facility]) [address] [place] [address] MCH (RBC) [Entitic mass] 32.8 pg Normal 27.0-33.0 [facility] Comment on above: Performed By: #### L [id number] #### [facility] ([facility]) [address] [place] [address] MCV (RBC) [Entitic vol] 100.5 fL High 82.0-98.0 [facility] Comment on above: Performed By: #### L [id number] #### [facility] ([facility]) [address] [place] [address] PLATELETS (10*3/UL) IN BLOOD AUTOMATED COUNT 198 10*3/uL Normal 150-400 [facility] Comment on above: Performed By: #### L [id number] #### [facility] ([facility]) [address] [place] [address] RBC (Bld) [#/Vol] 4.02 10*6/uL Low 4.20-5.70 [facility] Comment on above: Performed By: #### L [id number] #### [facility] ([facility]) [address] [place] [address] WBC (Bld) [#/Vol] 8.96 10*3/uL Normal 4.00-10.60 [facility] Comment on above: Performed By: #### L [id number] #### [facility] ([facility]) [address] [place] [address] MAGNESIUMon 04-23-2023 Magnesium [Mass/Vol] 2.1 mg/dL Normal 1.9-2.7 [facility] Comment on above: Performed By: #### L [id number] #### [facility] ([facility]) [address] [place] [address] T4, FREEon 04-23-2023 THYROXINE (T4) FREE (NG/DL) IN SER/PLAS 0.59 ng/dL Low 0.71-1.85 [facility] Comment on above: Performed By: #### L [id number] #### [facility] ([facility]) [address] [place] [address] TSH3 REFLEX TO FT4on 023 THYROTROPIN (MIU/L) IN SER/PLAS BY DETECTION LIMIT <= 0.05 MIU/L 45.61 mIU/L High 0.34-5.60 [facility] Comment on above: Performed By: #### L [id number] #### [facility] ([facility]) [address] [place] [address] 30on 04-22-2023 30 The patient is Moderately [...] range: Monitor blood glucose as ordered Normal [facility] ACTHon 04-22-2023 ACTH (ADRENOCORTICOTROPHI C HORMONE) 7 pg/mL Normal 7-69 [facility] Comment on above: Result Comment: Test Performed by [employer] [address] [place] [address] - Released 04/23/2023 16:24 Performed By: #### L [id number] #### [facility] ([facility]) [address] [place] [address] BASIC METABOLIC PANELon 10-0 Anion gap [Moles/Vol] 12 mmol/L Normal 7-20 [facility] Comment on above: Performed By: #### L [id number] #### [facility] ([facility]) [address] [place] [address] Calcium [Mass/Vol] 8.7 mg/dL Normal 8.6-10.3 [facility] Comment on above: Performed By: #### L [id number] #### [facility] ([facility]) [address] [place] [address] Chloride [Moles/Vol] 102 mmol/L Normal 98-107 [facility] Comment on above: Performed By: #### L [id number] #### [facility] ([facility]) [address] [place] [address] CO2 [Moles/Vol] 19 mmol/L Low 21-31 [facility] Comment on above: Performed By: #### L [id number] #### [facility] ([facility]) [address] [place] [address] Creatinine [Mass/Vol] 1.18 mg/dL Normal 0.70-1.30 [facility] Comment on above: Performed By: #### L [id number] #### [facility] ([facility]) [address] [place] [address] GLOMERULAR FILTRATION RATE ML/MIN/1.73 SQ M.PREDICTED 71.5 mL/min/1.73m*2 Normal >60.0 [facility] Comment on above: Result Comment: The [facility]???s estimated glomerular filtration rate (eGFR) will [...] individuals. Performed By: #### L [id number] #### [facility] ([facility]) [address] [place] [address] Glucose [Mass/Vol] 105 mg/dL High 70-100 [facility] Comment on above: Performed By: #### L [id number] #### [facility] ([facility]) [address] [place] [address] Potassium [Moles/Vol] 3.1 mmol/L Low 3.5-5.1 [facility] Comment on above: Performed By: #### L [id number] #### [facility] ([facility]) [address] [place] [address] Sodium [Moles/Vol] 130 mmol/L Low 136-145 [facility] Comment on above: Performed By: #### L [id number] #### [facility] [address] [place] [address] Urea nitrogen [Mass/Vol] 13 mg/dL Normal 7-25 [facility] Comment on above: Performed By: #### L [id number] #### [facility] [address] [place] [address] UREA NITROGEN/CREATININE (MASS RATIO) IN SER/PLAS 11.[address] [facility] Comment on above: Performed By: #### L [id number] #### [facility] ([facility]) [address] [place] [address] CBCon 04-22-2023 Erythrocyte distribution width (RBC) [Ratio] 16.8 % High 11.5-15.0 [facility] Comment on above: Performed By: #### L [id number] #### [facility] ([facility]) [address] [place] [address] ERYTHROCYTE MEAN CORPUSCULAR HEMOGLOBIN CONCENTRATION (G/DL) BY AUTOMATED 33.3 g/dL Normal 32.0-35.0 [facility] Comment on above: Performed By: #### L [id number] #### [facility] ([facility]) [address] [place] [address] Hematocrit (Bld) [Volume fraction] 37.5 % Low 39.0-55.0 [facility] Comment on above: Performed By: #### L [id number] #### [facility] [address] [place] [address] Hemoglobin (Bld) [Mass/Vol] 12.5 g/dL Low 13.0-17.0 [facility] Comment on above: Performed By: #### L [id number] #### [facility] [address] [place] [address] MCH (RBC) [Entitic mass] 32.7 pg Normal 27.0-33.0 [facility] Comment on above: Performed By: #### L [id number] #### [facility] ([facility]) [address] [place] [address] MCV (RBC) [Entitic vol] 98.2 fL High 82.0-98.0 [facility] Comment on above: Performed By: #### L [id number] #### [facility] ([facility]) [address] [place] [address] PLATELETS (10*3/UL) IN BLOOD AUTOMATED COUNT 188 10*3/uL Normal 150-400 [facility] Comment on above: Performed By: #### L [id number] #### [facility] ([facility]) [address] [place] [address] RBC (Bld) [#/Vol] 3.82 10*6/uL Low 4.20-5.70 [facility] Comment on above: Performed By: #### L [id number] #### [facility] ([facility]) [address] [place] [address] WBC (Bld) [#/Vol] 8.42 10*3/uL Normal 4.00-10.60 [facility] Comment on above: Performed By: #### L [id number] #### [facility] ([facility]) [address] [place] [address] CORTISOLon 04-22-2023 CORTISOL (UG/DL) IN SER/PLAS 9.8 ug/dL High 0-9 [facility] Comment on above: Order Comment: 60 mi n draw Performed By: #### L [id number] #### [facility] ([facility]) [address] [place] [address] CORTISOL (UG/DL) IN SER/PLAS 8.3 ug/dL Normal 0-9 [facility] Comment on above: Order Comment: Obtai n 30min after cosyntropin injection. Performed By: #### L [id number] #### [facility] ([facility]) [address] [place] [address] CORTISOL (UG/DL) IN SER/PLAS 1.8 ug/dL Low 6-23 [facility] Comment on above: Performed By: #### L [id number] #### [facility] ([facility]) [address] [place] [address] MAGNESIUMon 04-22-2023 Magnesium [Mass/Vol] 1.7 mg/dL Low 1.9-2.7 [facility] Comment on above: Performed By: #### L [id number] #### [facility] ([facility]) [address] [place] [address] NURSNOTEon 04-22-2023 NURSNOTE Cortisol lab draw to be collected at 1305; pt difficult draw. X 2 attempts failed in right hand and left upper forearm. Successful draw at 1320 in right upper arm. Specimen sent to lab. Pt tolerated procedure without difficulty. Call light at patient's side and pt denies further needs at this time. Normal [facility] 30on 04-21-2023 30 Problem: Pain - [...] for the shift include pain control/safety Normal [facility] BASIC METABOLIC PANELon 10-0 Anion gap [Moles/Vol] 13 mmol/L Normal - [facility] Comment on above: Performed By: #### L [id number] #### [facility] ([facility]) [address] [place] [address] Calcium [Mass/Vol] 9.0 mg/dL Normal 8.6-10.3 [facility] Comment on above: Performed By: #### L [id number] #### [facility] [address] [place] [address] Chloride [Moles/Vol] 102 mmol/L Normal 98-107 [facility] Comment on above: Performed By: #### L [id number] #### [facility] ([facility]) [address] [place] [address] CO2 [Moles/Vol] 18 mmol/L Low 21-31 [facility] Comment on above: Performed By: #### L [id number] #### [facility] ([facility]) [address] [place] [address] Creatinine [Mass/Vol] 1.18 mg/dL Normal 0.70-1.30 [facility] Comment on above: Performed By: #### L [id number] #### [facility] ([facility]) [address] [place] [address] GLOMERULAR FILTRATION RATE ML/MIN/1.73 SQ M.PREDICTED 71.5 mL/min/1.73m*2 Normal >60.0 [facility] Comment on above: Result Comment: [facility]???s estimated glomerular filtration rate (eGFR) will [...] individuals. Performed By: #### L [id number] #### [facility] [address] [place] [address] Glucose [Mass/Vol] 88 mg/dL Normal 70-100 [facility] Comment on above: Performed By: #### L [id number] #### [facility] [address] [place] [address] Potassium [Moles/Vol] 3.7 mmol/L Normal 3.5-5.1 [facility] Comment on above: Performed By: #### L [id number] #### [facility] [address] [place] [address] Sodium [Moles/Vol] 129 mmol/L Low 136-145 [facility] Comment on above: Performed By: #### L [id number] #### [facility] [address] [place] [address] Urea nitrogen [Mass/Vol] 12 mg/dL Normal 7-25 [facility] Comment on above: Performed By: #### L [id number] #### [facility] ([facility]) [address] [place] [address] UREA NITROGEN/CREATININE (MASS RATIO) IN SER/PLAS 10.[address] [facility] Comment on above: Performed By: #### L [id number] #### [facility] ([facility]) [address] [place] [address] CBCon 04-21-2023 Erythrocyte distribution width (RBC) [Ratio] 16.6 % High 11.5-15.0 [facility] Comment on above: Performed By: #### L [id number] #### [facility] ([facility]) [address] [place] [address] ERYTHROCYTE MEAN CORPUSCULAR HEMOGLOBIN CONCENTRATION (G/DL) BY AUTOMATED 34.5 g/dL Normal 32.0-35.0 [facility] Comment on above: Performed By: #### L [id number] #### [facility] ([facility]) [address] [place] [address] Hematocrit (Bld) [Volume fraction] 39.7 % Normal 39.0-55.0 [facility] Comment on above: Performed By: #### L [id number] #### [facility] [address] [place] [address] Hemoglobin (Bld) [Mass/Vol] 13.7 g/dL Normal 13.0-17.0 [facility] Comment on above: Performed By: #### L [id number] #### [facility] ([facility]) [address] [place] [address] MCH (RBC) [Entitic mass] 33.4 pg High 27.0-33.0 [facility] Comment on above: Performed By: #### L [id number] #### [facility] ([facility]) [address] [place] [address] MCV (RBC) [Entitic vol] 96.8 fL Normal 82.0-98.0 [facility] Comment on above: Performed By: #### L [id number] #### [facility] ([facility]) [address] [place] [address] PLATELETS (10*3/UL) IN BLOOD AUTOMATED COUNT 179 10*3/uL Normal 150-400 [facility] Comment on above: Performed By: #### L [id number] #### [facility] ([facility]) [address] [place] [address] RBC (Bld) [#/Vol] 4.10 10*6/uL Low 4.20-5.70 [facility] Comment on above: Performed By: #### L [id number] #### [facility] ([facility]) [address] [place] [address] WBC (Bld) [#/Vol] 8.95 10*3/uL Normal 4.00-10.60 [facility] Comment on above: Performed By: #### L [id number] #### [facility] ([facility]) [address] [place] [address] CORTISOLon 04-21-2023 CORTISOL (UG/DL) IN SER/PLAS 1.8 ug/dL Low 6-23 [facility] Comment on above: Performed By: #### L [id number] #### [facility] ([facility]) [address] [place] [address] CREATININE, URINE, RANDOMon 04-21-2023 Creatinine (U) [Mass/Vol] 94.0 mg/dL Normal 26-299 [facility] Comment on above: Performed By: #### L [id number] #### [facility] ([facility]) [address] [place] [address] MAGNESIUMon 04-21-2023 Magnesium [Mass/Vol] 1.8 mg/dL Low 1.9-2.7 [facility] Comment on above: Performed By: #### L [id number] #### [facility] ([facility]) [address] [place] [address] NURSNOTEon 04-21-[address] Maeve baca of TSH 188.4, sodium 129, and creatinine 1.33. She stated sodium and creatinine are improving and also pt will need IV synthroid replacement and she will leave it to primary to replace but told play writer to still give oral synthroid in AM as scheduled. Normal [facility] SODIUM, URINE, RANDOMon 10-0 Sodium (U) [Moles/Vol] 33 mmol/L Normal [facility] Comment on above: Performed By: #### L [id number] #### [facility] ([facility]) [address] [place] [address] T3, FREEon 04-21-2023 TRIIODOTHYRONINE (T3) FREE (PG/ML) IN SER/PLAS 1.9 pg/mL Low 2.5-3.9 [facility] Comment on above: Performed By: #### L [id number] #### [facility] ([facility]) [address] [place] [address] URINALYSISon 04-21-2023 BILIRUBIN, TOTAL PRESENCE IN URINE Negative Normal Negative [facility] Comment on above: Order Comment: Micro scopics not performed on urines with negative chemical reactions unless requested on original order. Performed By: #### L [id number] #### [facility] ([facility]) [address] [place] [address] Clarity (U) Clear Normal Clear [facility] Comment on above: Order Comment: Micro scopics not performed on urines with negative chemical reactions unless requested on original order. Performed By: #### L [id number] #### [facility] [address] [place] [address] Color (U) Yellow Normal Yellow [facility] Comment on above: Order Comment: Micro scopics not performed on urines with negative chemical reactions unless requested on original order. Performed By: #### L [id number] #### [facility] ([facility]) [address] [place] [address] Glucose (U) [Mass/Vol] Negative Normal Negative [facility] Comment on above: Order Comment: Micro scopics not performed on urines with negative chemical reactions unless requested on original order. Performed By: #### L [id number] #### [facility] ([facility]) [address] [place] [address] HEMOGLOBIN PRESENCE IN URINE Negative Normal Negative [facility] Comment on above: Order Comment: Micro scopics not performed on urines with negative chemical reactions unless requested on original order. Performed By: #### L [id number] #### [facility] ([facility]) [address] [place] [address] Ketones Ql (U) Trace Abnormal Negative [facility] Comment on above: Order Comment: Micro scopics not performed on urines with negative chemical reactions unless requested on original order. Performed By: #### L [id number] #### [facility] ([facility]) [address] [place] [address] LEUKOCYTE ESTERASE PRESENCE IN URINE BY TEST STRIP Negative Normal Negative [facility] Comment on above: Order Comment: Micro scopics not performed on urines with negative chemical reactions unless requested on original order. Performed By: #### L [id number] #### [facility] ([facility]) [address] [place] [address] NITRITE PRESENCE IN URINE Negative Normal Negative [facility] Comment on above: Order Comment: Micro scopics not performed on urines with negative chemical reactions unless requested on original order. Performed By: #### L [id number] #### [facility] ([facility]) [address] [place] [address] pH (U) 5.0 [pH] Normal 5.0-8.0 [facility] Comment on above: Order Comment: Micro scopics not performed on urines with negative chemical reactions unless requested on original order. Performed By: #### L [id number] #### [facility] ([facility]) [address] [place] [address] Protein (U) [Mass/Vol] Negative Normal Negative [facility] Comment on above: Order Comment: Micro scopics not performed on urines with negative chemical reactions unless requested on original order. Performed By: #### L [id number] #### [facility] ([facility]) [address] [place] [address] Specific gravity (U) [Rel density] 1.011 Low 1.015-1.020 [facility] Comment on above: Order Comment: Micro scopics not performed on urines with negative chemical reactions unless requested on original order. Performed By: #### L [id number] #### [facility] ([facility]) [address] [place] [address] B-TYPE NATRIURETIC PEPTIDEon 04-20-2023 Natriuretic peptide B (Bld) [Mass/Vol] 17 pg/mL Normal 0-100 [facility] Comment on above: Performed By: #### L [id number] #### [facility] ([facility]) [address] [place] [address] CBC WITH AUTO DIFFERENTIALon 04-20-2023 Basophils (Bld) [#/Vol] 0.08 10*3/uL Normal 0.00-0.20 [facility] Comment on above: Performed By: #### L [id number] #### [facility] ([facility]) [address] [place] [address] Basophils/100 WBC (Bld) 0.8 % Normal 0.0-1.0 [facility] Comment on above: Performed By: #### L [id number] #### [facility] ([facility]) [address] [place] [address] Eosinophils (Bld) [#/Vol] 0.11 10*3/uL Normal 0.00-0.50 [facility] Comment on above: Performed By: #### L [id number] #### [facility] ([facility]) [address] [place] [address] Eosinophils/100 WBC (Bld) 1.2 % Normal 0.0-6.0 [facility] Comment on above: Performed By: #### L [id number] #### [facility] [address] [place] [address] Erythrocyte distribution width (RBC) [Ratio] 16.5 % High 11.5-15.0 [facility] Comment on above: Performed By: #### L [id number] #### [facility] ([facility]) [address] [place] [address] ERYTHROCYTE MEAN CORPUSCULAR HEMOGLOBIN CONCENTRATION (G/DL) BY AUTOMATED 33.5 g/dL Normal 32.0-35.0 [facility] Comment on above: Performed By: #### L [id number] #### [facility] ([facility]) [address] [place] [address] Hematocrit (Bld) [Volume fraction] 42.7 % Normal 39.0-55.0 [facility] Comment on above: Performed By: #### L [id number] #### [facility] [address] [place] [address] Hemoglobin (Bld) [Mass/Vol] 14.3 g/dL Normal 13.0-17.0 [facility] Comment on above: Performed By: #### L [id number] #### [facility] [address] [place] [address] Immature granulocytes (Bld) [#/Vol] 0.11 10*3/uL Normal 0.00-0.20 [facility] Comment on above: Performed By: #### L [id number] #### [facility] ([facility]) [address] [place] [address] Immature granulocytes/100 WBC (Bld) 1.2 % High 0.0-1.0 [facility] Comment on above: Performed By: #### L [id number] #### [facility] ([facility] [address] [place] [address] Lymphocytes (Bld) [#/Vol] 3.02 10*3/uL Normal 1.20-4.00 [facility] Comment on above: Performed By: #### L [id number] #### [facility] ([facility] [address] [place] [address] Lymphocytes/100 WBC (Bld) 32.0 % Normal 20.0-45.0 [facility] Comment on above: Performed By: #### L [id number] #### [facility] ([facility]) [address] [place] [address] MCH (RBC) [Entitic mass] 32.5 pg Normal 27.0-33.0 [facility] Comment on above: Performed By: #### L [id number] #### [facility] ([facility]) [address] [place] [address] MCV (RBC) [Entitic vol] 97.0 fL Normal 82.0-98.0 [facility] Comment on above: Performed By: #### L [id number] #### [facility] ([facility]) [address] [place] [address] Monocytes (Bld) [#/Vol] 0.31 10*3/uL Normal 0.10-1.00 [facility] Comment on above: Performed By: #### L [id number] #### [facility] ([facility]) [address] [place] [address] Monocytes/100 WBC (Bld) 3.3 % Low 5.0-12.0 [facility] Comment on above: Performed By: #### L [id number] #### [facility] ([facility] [address] [place] [address] Neutrophils (Bld) [#/Vol] 5.81 10*3/uL Normal 1.60-7.60 [facility] Comment on above: Performed By: #### L [id number] #### [facility] ([facility]) [address] [place] [address] Neutrophils/100 WBC (Bld) 61.5 % Normal 40.0-72.0 [facility] Comment on above: Performed By: #### L [id number] #### [facility] ([facility]) [address] [place] [address] NRBC (PER 100 WBCS) BY AUTOMATED COUNT 0.0 % Normal 0 [facility] Comment on above: Performed By: #### L [id number] #### [facility] ([facility]) [address] [place] [address] PLATELETS (10*3/UL) IN BLOOD AUTOMATED COUNT 212 10*3/uL Normal 150-400 [facility] Comment on above: Performed By: #### L [id number] #### [facility] ([facility]) [address] [place] [address] RBC (Bld) [#/Vol] 4.40 10*6/uL Normal 4.20-5.70 [facility] Comment on above: Performed By: #### L [id number] #### [facility] ([facility]) [address] [place] [address] WBC (Bld) [#/Vol] 9.44 10*3/uL Normal 4.00-10.60 [facility] Comment on above: Performed By: #### L [id number] #### [facility] ([facility]) [address] [place] [address] COMPREHENSIVE METABOLIC PANE Dawit 04-20-2023 Albumin [Mass/Vol] 5.1 g/dL Normal 3.5-5.7 [facility] Comment on above: Performed By: #### L [id number] #### [facility] ([facility]) [address] [place] [address] ALP [Catalytic activity/Vol] 48 U/L Normal 34-104 [facility] Comment on above: Performed By: #### L [id number] #### [facility] ([facility]) [address] [place] [address] ALT [Catalytic activity/Vol] 8 U/L Normal 7-52 [facility] Comment on above: Performed By: #### L [id number] #### [facility] ([facility]) [address] [place] [address] Anion gap [Moles/Vol] 18 mmol/L Normal 7-20 [facility] Comment on above: Performed By: #### L [id number] #### [facility] ([facility] [address] [place] [address] AST [Catalytic activity/Vol] 12 U/L Low 13-39 [facility] Comment on above: Performed By: #### L [id number] #### [facility] ([facility]) [address] [place] [address] Bilirubin [Mass/Vol] 0.6 mg/dL Normal 0.3-1.0 [facility] Comment on above: Performed By: #### L [id number] #### [facility] ([facility]) [address] [place] [address] Calcium [Mass/Vol] 9.9 mg/dL Normal 8.6-10.3 [facility] Comment on above: Performed By: #### L [id number] #### [facility] ([facility] [address] [place] [address] Chloride [Moles/Vol] 96 mmol/L Low 98-107 [facility] Comment on above: Performed By: #### L [id number] #### [facility] ([facility]) [address] [place] [address] CO2 [Moles/Vol] 19 mmol/L Low 21-31 [facility] Comment on above: Performed By: #### L [id number] #### [facility] ([facility]) [address] [place] [address] Creatinine [Mass/Vol] 1.33 mg/dL High 0.70-1.30 [facility] Comment on above: Performed By: #### L [id number] #### [facility] ([facility]) [address] [place] [address] GLOMERULAR FILTRATION RATE ML/MIN/1.73 SQ M.PREDICTED 62.0 mL/min/1.73m*2 Normal >60.0 [facility] Comment on above: Result Comment: [facility]???s estimated glomerular filtration rate (eGFR) will [...] individuals. Performed By: #### L [id number] #### [facility] ([facility]) [address] [place] [address] Glucose [Mass/Vol] 75 mg/dL Normal 70-100 [facility] Comment on above: Performed By: #### L [id number] #### [facility] ([facility]) [address] [place] [address] Potassium [Moles/Vol] 3.6 mmol/L Normal 3.5-5.1 [facility] Comment on above: Performed By: #### L [id number] #### [facility] ([facility]) [address] [place] [address] Protein [Mass/Vol] 8.3 g/dL Normal 6.0-8.3 [facility] Comment on above: Performed By: #### L [id number] #### [facility] ([facility]) [address] [place] [address] Sodium [Moles/Vol] 129 mmol/L Low 136-145 [facility] Comment on above: Performed By: #### L [id number] #### [facility] ([facility]) [address] [place] [address] Urea nitrogen [Mass/Vol] 10 mg/dL Normal 7-25 [facility] Comment on above: Performed By: #### L [id number] #### [facility] ([facility]) [address] [address] UREA NITROGEN/CREATININE (MASS RATIO) IN SER/PLAS 7.[address] [facility] Comment on above: Performed By: #### L [id number] #### [facility] ([facility]) [address] [place] [address] CONSULTon 04-20-2023 CONSULT -- Attestation signed by [...] came to hospital as a transfer from [facility] due to concern for mobitz II and [...] History No family history on file. Allergies Ellijay and Penicillins Medications (Not in a hospital [...] Value Ventricular Rate 59 Atrial Rate 59 SC Interval 132 QRS DURATION 86 QT Interval 430 QTC CALCULATION(BAZETT) 425 P Hegins 43 R-Hegins -12 T Wave Hegins 73 Impression Sinus bradycardia Low voltage QRS [...] will continue to follow. Mireille Gilbert MD Applications Processor PGY-4 [facility] Pager # [phone] [facility] MAGNESIUMon 10-06-2023 Magnesium [Mass/Vol] 1.9 mg/dL Normal 1.9-2.7 [facility] Comment on above: Performed By: #### L [id number] #### [facility] ([facility]) [address] [place] [address] NURSNOTEon 04-20-2023 NURSNOTE Report called to BRISEYDA oNble Normal [facility] Orders Onlyon 04-20-2023 Orders Only [id number] Rehan Poole 1965 M Date Provider Department Center 04/20/2023 BYRON BRANTLEY [facility] CARD [place] HeartVAS No family history on file Normal [facility] T4, FREEon 04-20-2023 THYROXINE (T4) FREE (NG/DL) IN SER/PLAS <0.25 Low 0.71-1.85 [facility] Comment on above: Performed By: #### L [id number] #### [facility] ([facility]) [address] [place] [address] TROPONIN Ion 04-20-2023 Troponin I.cardiac [Mass/Vol] 0.00 ng/mL Normal 0.00-0.04 [facility] Comment on above: Performed By: #### L [id number] #### [facility] ([facility]) [address] [place] [address] TSH3 REFLEX TO FT4on 023 THYROTROPIN (MIU/L) IN SER/PLAS BY DETECTION LIMIT <= 0.05 MIU/L 188.64 mIU/L Critically high 0.34-5.60 [facility] Comment on above: Performed By: #### L [id number] #### [facility] ([facility]) [address] [place] [address] CBC AUTO DIFFon 11-28-2022 BASO # 0.0 103/ul Normal 0.0-0.1 [facility] Comment on above: Performed By: #### B REGULATORY LEADER, T7, CMP, TSH #### [facility] [address] [address] [address] Get Whitten Basophils/100 WBC (Bld) 0.4 % Normal 0.2-2.0 [facility] Comment on above: Performed By: #### B REGULATORY LEADER, T7, CMP, TSH #### [facility] [address] [place] [address] Dr. Get Whitten EO # 0.1 103/ul Normal 0.0-0.7 [facility] Comment on above: Performed By: #### B REGULATORY LEADER, T7, CMP, TSH #### [facility] [address] [place] [address] Dr. Get Whitten Eosinophils/100 WBC (Bld) 0.5 % Critically low 0.9-7.0 [facility] Comment on above: Performed By: #### B REGULATORY LEADER, T7, CMP, TSH #### [facility] [address] [place] [address] Dr. Get Whitten Erythrocyte distribution width (RBC) [Ratio] 18.6 % Critically high 11.0-15.0 [facility] Comment on above: Performed By: #### B REGULATORY LEADER, T7, CMP, TSH #### [facility] [address] [place] [address] Dr. Get Whitten Hematocrit (Bld) [Volume fraction] 33.3 % Critically low 42.0-54.0 [facility] Comment on above: Performed By: #### B REGULATORY LEADER, T7, CMP, TSH #### [facility] [address] [place] [address] Dr. Get Whitten Hemoglobin (Bld) [Mass/Vol] 11.1 g/dL Critically low 14.0-18.0 [facility] Comment on above: Performed By: #### B REGULATORY LEADER, T7, CMP, TSH #### [facility] [address] [place] [address] Dr. Get Whitten IG # 0.30 10e3/ul Critically high 0.00-0.03 [facility] Comment on above: Performed By: #### B REGULATORY LEADER, T7, CMP, TSH #### [facility] [address] [place] [address] Dr. Get Whitten IG % 3.3 % Critically high 0.0-0.5 [facility] Comment on above: Performed By: #### B REGULATORY LEADER, T7, CMP, TSH #### [facility] [address] [place] [address] Dr. Get Whitten LYMPH # 3.0 103/ul Normal 1.2-3.8 [facility] Comment on above: Performed By: #### B REGULATORY LEADER, T7, CMP, TSH #### [facility] [address] [place] [address] Dr. Get Whitten Lymphocytes/100 WBC (Bld) 32.7 % Normal 20.5-60.0 [facility] Comment on above: Performed By: #### B REGULATORY LEADER, T7, CMP, TSH #### [facility] [address] [place] [address] Dr. Get Whitten MANUAL DIFF REQ NO Normal [facility] Comment on above: Performed By: #### B REGULATORY LEADER, T7, CMP, TSH #### [facility] [address] [place] [address] Dr. Get Whitten MCH (RBC) [Entitic mass] 34.8 pg Critically high 25.9-34.0 [facility] Comment on above: Performed By: #### B REGULATORY LEADER, T7, CMP, TSH #### [facility] [address] [place] [address] Dr. Get Whitten MCHC (RBC) [Mass/Vol] 33.3 g/dL Normal 29.9-35.2 [facility] Comment on above: Performed By: #### B REGULATORY LEADER, T7, CMP, TSH #### [facility] [address] [place] [address] Dr. Get Whitten MCV (RBC) [Entitic vol] 104.4 fL Critically high 80.0-94.0 [facility] Comment on above: Performed By: #### B REGULATORY LEADER, T7, CMP, TSH #### [facility] [address] [place] [address] Dr. Get Whitten MONO # 0.4 103/ul Normal 0.3-0.8 [facility] Comment on above: Performed By: #### B REGULATORY LEADER, T7, CMP, TSH #### [facility] [address] [address] [address] Get Whitten Monocytes/100 WBC (Bld) 4.2 % Normal 1.7-12.0 [facility] Comment on above: Performed By: #### B REGULATORY LEADER, T7, CMP, TSH #### [facility] [address] [address] [address] Get Whitten NEUT # 5.4 103/ul Normal 1.4-6.5 [facility] Comment on above: Performed By: #### B REGULATORY LEADER, T7, CMP, TSH #### [facility] [address] [place] [address] Dr. Get Whitten Neutrophils/100 WBC (Bld) 58.9 % Normal 43.0-75.0 [facility] Comment on above: Performed By: #### B REGULATORY LEADER, T7, CMP, TSH #### [facility] [address] [place] [address] Dr. Get Whitten Platelet mean volume (Bld) [Entitic vol] 9.5 fL Normal 9.5-13.5 [facility] Comment on above: Performed By: #### B REGULATORY LEADER, T7, CMP, TSH #### [facility] [address] [place] [address] Dr. Get Whitten PLT 187 103/ul Normal 150-450 [facility] Comment on above: Performed By: #### B REGULATORY LEADER, T7, CMP, TSH #### [facility] [address] [address] [address] Get Whitten RBC 3.19 106/ul Critically low 4.70-6.10 [facility] Comment on above: Performed By: #### B REGULATORY LEADER, T7, CMP, TSH #### [facility] [address] [place] [address] Dr. Get Whitten WBC 9.1 103/ul Normal 4.0-11.0 [facility] Comment on above: Performed By: #### B REGULATORY LEADER, T7, CMP, TSH #### [facility] [address] [place] [address] Dr. Get Whitten PROF 14(COMP METB)on 023 Albumin [Mass/Vol] 3.9 g/dL Normal 3.4-5.0 [facility] Comment on above: Performed By: #### C MP #### [facility] [address] [place] [address] Dr. Get Whitten Albumin/Globulin [Mass ratio] 1.1 {ratio} Normal [facility] Comment on above: Performed By: #### C MP #### [facility] [address] [address] [address] Get Whitten ALP [Catalytic activity/Vol] 34 U/L Critically low 46-116 [facility] Comment on above: Performed By: #### C MP #### [facility] [address] [place] [address] Dr. Get Whitten ALT [Catalytic activity/Vol] 21 U/L Normal 16-63 [facility] Comment on above: Performed By: #### C MP #### [facility] [address] [place] [address] Dr. Get Whitten Anion gap [Moles/Vol] 17.7 mmol/L Normal [facility] Comment on above: Performed By: #### C MP #### [facility] [address] [place] [address] Dr. Get Whitten AST [Catalytic activity/Vol] 15 U/L Normal 15-37 [facility] Comment on above: Performed By: #### C MP #### [facility] [address] [place] [address] Dr. Get Whitten Bilirubin [Mass/Vol] 0.3 mg/dL Normal 0.2-1.0 [facility] Comment on above: Performed By: #### C MP #### [facility] [address] [place] [address] Dr. Get Whitten Calcium [Mass/Vol] 8.7 mg/dL Normal 8.5-10.1 The [facility] Comment on above: Performed By: #### C MP #### [facility] [address] [place] [address] Dr. Get Whitten Chloride [Moles/Vol] 99 mmol/L Normal 98-107 [facility] Comment on above: Performed By: #### C MP #### [facility] [address] [address] [address] Get Whitten CO2 [Moles/Vol] 21.8 mmol/L Normal 21.0-32.0 [facility] Comment on above: Performed By: #### C MP #### [facility] [address] [address] [address] Get Whitten Creatinine [Mass/Vol] 1.69 mg/dL Critically high 0.70-1.30 [facility] Comment on above: Performed By: #### C MP #### [facility] [address] [address] [address] Get Whitten EGFR-AF BULGARIAN 51 mL/min/1.73m2 Critically low >=60 [facility] Comment on above: Performed By: #### C MP #### [facility] [address] [address] [address] Get Whitten EGFR-NON AF BULGARIAN 42 mL/min/1.73m2 Critically low >=60 [facility] Comment on above: Performed By: #### C MP #### [facility] [address] [address] [address] Get Whitten Globulin (S) [Mass/Vol] 3.6 g/dL Normal [facility] Comment on above: Performed By: #### C MP #### [facility] [address] [address] [address] Get Whitten Glucose [Mass/Vol] 96 mg/dL Normal 74-106 [facility] Comment on above: Performed By: #### C MP #### [facility] [address] [address] [address] Get Whitten Potassium [Moles/Vol] 3.5 mmol/L Normal 3.5-5.1 [facility] Comment on above: Performed By: #### C MP #### [facility] [address] [address] [address] Get Whitten Protein [Mass/Vol] 7.5 g/dL Normal 6.4-8.2 The [facility] Comment on above: Performed By: #### C MP #### [facility] [address] [address] [address] Get Whitten Sodium [Moles/Vol] 135 mmol/L Critically low 136-145 [facility] Comment on above: Performed By: #### C MP #### [facility] [address] [address] [address] Get Whitten Urea nitrogen [Mass/Vol] 15.0 mg/dL Normal 7.0-18.0 [facility] Comment on above: Performed By: #### C MP #### [facility] [address] [place] [address] Dr. Get Whitten Urea nitrogen/Creatinine [Mass ratio] 8.9 mg/mg Normal [facility] Comment on above: Performed By: #### C MP #### [facility] [address] [place] [address] Dr. Get Whitten T3, TOTAL (TRIIODOTHYRONINE) on 11-28-2022 T3, TOTAL <20 Critically low 71-180 [facility] Comment on above: Performed By: #### C VDTBH #### [facility] [address] [place] [address] Dr. Get Whitten AMMONIAon 11-27-2022 Ammonia (P) [Mass/Vol] ug/dL Critically low 11-32 [facility] Comment on above: Performed By: #### C MP #### [facility] [address] [place] [address] Dr. Get Whitten BNPon 11-27-2022 Natriuretic peptide B (Bld) [Mass/Vol] 50.0 pg/mL Normal <=900.0 [facility] Comment on above: Performed By: #### B REGULATORY LEADER, T7, CMP, TSH #### [facility] [address] [place] [address] Dr. Get Whitten CARDIAC NAA ADMITon 023 CK [Catalytic activity/Vol] 173 U/L Normal 39-308 [facility] Comment on above: Performed By: #### B REGULATORY LEADER, T7, CMP, TSH #### [facility] [address] [place] [address] Dr. Get Whitten CK.MB [Mass/Vol] 1.64 ng/mL Normal <=3.60 [facility] Comment on above: Performed By: #### B REGULATORY LEADER, T7, CMP, TSH #### [facility] [address] [place] [address] Dr. Get Whitten HSTROP 4.3 pg/mL Normal 4.0-76.1 [facility] Comment on above: Result Comment: CUT- OFF POINTS HAVE BEEN ESTABLISHED BASED ON THE FOURTH UNIVERSAL DEFINITIONS OF MYOCARDIAL INFARCTION. THE UPPER REFERENCE LIMIT (URL) OF TROPONIN, DEFINED THE 99TH PERCENTILE OF cTnI DISTRIBUTION IN A REFERENCE POPULATION, HAS BEEN CONFIRMED THE DECISION THRESHOLD FOR [place] DIAGNOSIS. Performed By: #### B REGULATORY LEADER, T7, CMP, TSH #### [facility] [address] [place] [address] Dr. Get Whitten RAFA 72 ng/mL Normal 16-96 [facility] Comment on above: Performed By: #### B REGULATORY LEADER, T7, CMP, TSH #### [facility] [address] [place] [address] Dr. Get Whitten CBC AUTO DIFFon 11-27-2022 BASO # 0.1 103/ul Normal 0.0-0.1 [facility] Comment on above: Performed By: #### C VDTBH #### [facility] [address] [place] [address] Dr. Get Whitten Basophils/100 WBC (Bld) 0.6 % Normal 0.2-2.0 [facility] Comment on above: Performed By: #### C VDTBH #### [facility] [address] [place] [address] Dr. Get Whitten EO # 0.0 103/ul Normal 0.0-0.7 [facility] Comment on above: Performed By: #### C VDTBH #### [facility] [address] [place] [address] Dr. Get Whitten Eosinophils/100 WBC (Bld) 0.4 % Critically low 0.9-7.0 [facility] Comment on above: Performed By: #### C VDTBH #### [facility] [address] [place] [address] Dr. Get Whitten Erythrocyte distribution width (RBC) [Ratio] 18.6 % Critically high 11.0-15.0 [facility] Comment on above: Performed By: #### C VDTBH #### [facility] [address] [place] [address] Dr. Get Whitten Hematocrit (Bld) [Volume fraction] 35.4 % Critically low 42.0-54.0 [facility] Comment on above: Performed By: #### C VDTBH #### [facility] [address] [place] [address] Dr. Get Whitten Hemoglobin (Bld) [Mass/Vol] 11.9 g/dL Critically low 14.0-18.0 [facility] Comment on above: Performed By: #### C VDTBH #### [facility] [address] [place] [address] Dr. Get Whitten IG # 0.28 10e3/ul Critically high 0.00-0.03 [facility] Comment on above: Performed By: #### C VDTBH #### [facility] [address] [place] [address] Dr. Get Whitten IG % 3.5 % Critically high 0.0-0.5 [facility] Comment on above: Performed By: #### C VDTBH #### [facility] [address] [place] [address] Dr. Get Whitten LYMPH # 3.3 103/ul Normal 1.2-3.8 [facility] Comment on above: Performed By: #### C VDTBH #### [facility] [address] [place] [address] Dr. Get Whitten Lymphocytes/100 WBC (Bld) 41.6 % Normal 20.5-60.0 [facility] Comment on above: Performed By: #### C VDTBH #### [facility] [address] [place] [address] Dr. Get Whitten MANUAL DIFF REQ NO Normal [facility] Comment on above: Performed By: #### C VDTBH #### [facility] [address] [place] [address] Dr. Get Whitten MCH (RBC) [Entitic mass] 35.1 pg Critically high 25.9-34.0 [facility] Comment on above: Performed By: #### C VDTBH #### [facility] [address] [place] [address] Dr. Get Whitten MCHC (RBC) [Mass/Vol] 33.6 g/dL Normal 29.9-35.2 [facility] Comment on above: Performed By: #### C VDTBH #### [facility] [address] [place] [address] Dr. Get Whitten MCV (RBC) [Entitic vol] 104.4 fL Critically high 80.0-94.0 [facility] Comment on above: Performed By: #### C VDTBH #### [facility] [address] [place] [address] Dr. Get Whitten MONO # 0.4 103/ul Normal 0.3-0.8 [facility] Comment on above: Performed By: #### C VDTBH #### [facility] [address] [place] [address] Dr. Get Whitten Monocytes/100 WBC (Bld) 5.0 % Normal 1.7-12.0 [facility] Comment on above: Performed By: #### C VDTBH #### [facility] [address] [place] [address] Dr. Get Whitten NEUT # 3.9 103/ul Normal 1.4-6.5 [facility] Comment on above: Performed By: #### C VDTBH #### [facility] [address] [place] [address] Dr. Get Whitten Neutrophils/100 WBC (Bld) 48.9 % Normal 43.0-75.0 [facility] Comment on above: Performed By: #### C VDTBH #### [facility] [address] [place] [address] Dr. Get Whitten Platelet mean volume (Bld) [Entitic vol] 9.5 fL Normal 9.5-13.5 [facility] Comment on above: Performed By: #### C VDTBH #### [facility] [address] [address] [address] Get Whitten PLT 182 103/ul Normal 150-450 [facility] Comment on above: Performed By: #### C VDTBH #### [facility] [address] [address] [address] Get Whitten RBC 3.39 106/ul Critically low 4.70-6.10 [facility] Comment on above: Performed By: #### C VDTBH #### [facility] [address] [address] [address] Get Whitten WBC 8.0 103/ul Normal 4.0-11.0 [facility] Comment on above: Performed By: #### C VDTBH #### [facility] [address] [address] [address] CSPINE WO CONon [...] SHEN SOSA Date: 2022-11-27 11:26 Normal [facility] CT STROKE HEAD WOon 11-28-19 CT STROKE [...] SHEN SOSA Date: 2022-11-27 11:16 Normal [facility] Covid-19 PCR (CVDTBH)on 11-13 SARS-CoV-2 (COVID-19) RNA ASHLEE+probe Ql (Unsp spec) Not detected Normal NOT DETECTED [facility] Comment on above: Result Comment: THIS TEST IS NOT APPROVED BY THE FDA. IT HAS BEEN AUTHORIZED FOR USE UNDER AN EMERGENCY USE AUTHORIZATION. Performed By: #### C MP #### [facility] [address] [place] [address] Dr. Get Whitten ETHANOL (BLD ALC)on 11-28-19 ALC NOTE NOTE: 80 mg/dl is th e legal limit for a blood alcohol level Normal [facility] Comment on above: Performed By: #### B REGULATORY LEADER, T7, CMP, TSH #### [facility] [address] [address] [address] Get Whitten Ethanol [Mass/Vol] mg/dL Normal [facility] Comment on above: Performed By: #### B REGULATORY LEADER, T7, CMP, TSH #### [facility] [address] [address] [address] Get Whitten MAGNESIUMon 11-27-2022 Magnesium [Mass/Vol] 2.3 mg/dL Normal 1.8-2.4 [facility] Comment on above: Performed By: #### B REGULATORY LEADER, T7, CMP, TSH #### [facility] [address] [address] [address] Get Whitten PROF 14(COMP METB)on 023 Albumin [Mass/Vol] 4.1 g/dL Normal 3.4-5.0 [facility] Comment on above: Performed By: #### B REGULATORY LEADER, T7, CMP, TSH #### [facility] [address] [place] [address] Dr. Get Whitten Albumin/Globulin [Mass ratio] 1.1 {ratio} Normal [facility] Comment on above: Performed By: #### B REGULATORY LEADER, T7, CMP, TSH #### [facility] [address] [place] [address] Dr. Get Whitten ALP [Catalytic activity/Vol] 36 U/L Critically low 46-116 [facility] Comment on above: Performed By: #### B REGULATORY LEADER, T7, CMP, TSH #### [facility] [address] [place] [address] Dr. Get Whitten ALT [Catalytic activity/Vol] 15 U/L Critically low 16-63 [facility] Comment on above: Performed By: #### B REGULATORY LEADER, T7, CMP, TSH #### [facility] [address] [address] [address] Get Whitten Anion gap [Moles/Vol] 15.0 mmol/L Normal [facility] Comment on above: Performed By: #### B REGULATORY LEADER, T7, CMP, TSH #### [facility] [address] [place] [address] Dr. Get Whitten AST [Catalytic activity/Vol] 13 U/L Critically low 15-37 [facility] Comment on above: Performed By: #### B REGULATORY LEADER, T7, CMP, TSH #### [facility] [address] [address] [address] Get Whitten Bilirubin [Mass/Vol] 0.3 mg/dL Normal 0.2-1.0 [facility] Comment on above: Performed By: #### B REGULATORY LEADER, T7, CMP, TSH #### [facility] [address] [place] [address] Dr. Get Whitten Calcium [Mass/Vol] 9.1 mg/dL Normal 8.5-10.1 [facility] Comment on above: Performed By: #### B REGULATORY LEADER, T7, CMP, TSH #### [facility] [address] [place] [address] Dr. Get Whitten Chloride [Moles/Vol] 101 mmol/L Normal 98-107 [facility] Comment on above: Performed By: #### B REGULATORY LEADER, T7, CMP, TSH #### [facility] [address] [place] [address] Dr. Get Whitten CO2 [Moles/Vol] 22.2 mmol/L Normal 21.0-32.0 [facility] Comment on above: Performed By: #### B REGULATORY LEADER, T7, CMP, TSH #### [facility] [address] [place] [address] Dr. Get Whitten Creatinine [Mass/Vol] 1.84 mg/dL Critically high 0.70-1.30 [facility] Comment on above: Performed By: #### B REGULATORY LEADER, T7, CMP, TSH #### [facility] [address] [place] [address] Dr. Get Whitten EGFR-AF BULGARIAN 46 mL/min/1.73m2 Critically low >=60 [facility] Comment on above: Performed By: #### B REGULATORY LEADER, T7, CMP, TSH #### [facility] [address] [place] [address] Dr. Get Whitten EGFR-NON AF BULGARIAN 38 mL/min/1.73m2 Critically low >=60 [facility] Comment on above: Performed By: #### B REGULATORY LEADER, T7, CMP, TSH #### [facility] [address] [place] [address] Dr. Get Whitten Globulin (S) [Mass/Vol] 3.6 g/dL Normal [facility] Comment on above: Performed By: #### B REGULATORY LEADER, T7, CMP, TSH #### [facility] [address] [place] [address] Dr. Get Whitten Glucose [Mass/Vol] 87 mg/dL Normal 74-106 [facility] Comment on above: Performed By: #### B REGULATORY LEADER, T7, CMP, TSH #### [facility] [address] [address] [address] Get Whitten Potassium [Moles/Vol] 4.2 mmol/L Normal 3.5-5.1 [facility] Comment on above: Performed By: #### B REGULATORY LEADER, T7, CMP, TSH #### [facility] [address] [address] [address] Get Whitten Protein [Mass/Vol] 7.7 g/dL Normal 6.4-8.2 [facility] Comment on above: Performed By: #### B REGULATORY LEADER, T7, CMP, TSH #### [facility] [address] [address] [address] Get Whitten Sodium [Moles/Vol] 134 mmol/L Critically low 136-145 [facility] Comment on above: Performed By: #### B REGULATORY LEADER, T7, CMP, TSH #### [facility] [address] [address] [address] Get Whitten Urea nitrogen [Mass/Vol] 14.0 mg/dL Normal 7.0-18.0 [facility] Comment on above: Performed By: #### B REGULATORY LEADER, T7, CMP, TSH #### [facility] [address] [address] [address] Get Whitten Urea nitrogen/Creatinine [Mass ratio] 7.6 mg/mg Normal [facility] Comment on above: Performed By: #### B REGULATORY LEADER, T7, CMP, TSH #### [facility] [address] [address] [address] Get Whitten PROTIMEon 11-27-2022 INR Coag (PPP) [Relative time] 0.98 {INR} Normal [facility] Comment on above: Performed By: #### B REGULATORY LEADER, T7, CMP, TSH #### [facility] [address] [address] [address] Get Whitten INR GUIDELINES SEE BELOW Normal [facility] Comment on above: Result Comment: JORGE RED INR: 2.0 - 3.0 CONDITIONS NOT LISTED BELOW 2.5 - 3.5 FOR PROSTHETIC HEART VALVE REPLACEMENT 2.5 - 3.5 RECURRENT THROMBOSIS Performed By: #### B REGULATORY LEADER, T7, CMP, TSH #### [facility] [address] [place] [address] Dr. Get Whitten PT Coag (PPP) [Time] 10.4 s Normal 9.0-11.6 [facility] Comment on above: Performed By: #### B REGULATORY LEADER, T7, CMP, TSH #### [facility] [address] [address] [address] Get Whitten PTTon 11-27-2022 aPTT Coag (Bld) [Time] 30.4 s Normal 22.3-36.2 [facility] Comment on above: Performed By: #### B REGULATORY LEADER, T7, CMP, TSH #### [facility] [address] [place] [address] Dr. Get Whitten SYMPTOMATIC COVID-19 ANTIGEN on 11-27-2022 EUA Statement SEE BELOW Normal [facility] Comment on above: Result Comment: This test [...] By: #### C MP, HSTROPN, BNP #### [facility] [address] [place] [address] Dr. Get Whitten SARS-CoV-2 (COVID-19) RNA ASHLEE+probe Ql (Unsp spec) Negative Normal NEGATIVE [facility] Comment on above: Performed By: #### C MP, HSTROPN, BNP #### [facility] [address] [place], [place] [address] [address] Get Whitten T4on 11-27-2022 T4 [Mass/Vol] 0.90 ug/dL Critically low 4.50-12.10 [facility] Comment on above: Performed By: #### B REGULATORY LEADER, T7, CMP, TSH #### [facility] [id number] Get Whitten TROPONIN, HIGH SENSITIVITYon 11-27-2022 HSTROP 4.1 pg/mL Normal 4.0-76.1 [facility] Comment on above: Result Comment: CUT- OFF POINTS HAVE BEEN ESTABLISHED BASED ON THE FOURTH UNIVERSAL DEFINITIONS OF MYOCARDIAL INFARCTION. THE UPPER REFERENCE LIMIT (URL) OF TROPONIN, DEFINED THE 99TH PERCENTILE OF cTnI DISTRIBUTION IN A REFERENCE POPULATION, HAS BEEN CONFIRMED THE DECISION THRESHOLD FOR [place] DIAGNOSIS. Performed By: #### B REGULATORY LEADER, T7, CMP, TSH #### [facility] [address] [address] [address] Get Whitten TSHon 11-27-2022 TSH 134.470 uIU/mL Critically high 0.358-3.740 [facility] Comment on above: Performed By: #### B REGULATORY LEADER, T7, CMP, TSH #### [facility] [id number] Get Whitten XR CHEST 1 Von [...] by: SHEN SOSA Date: 2022-11-27 11:19 Normal [facility] XR CSPINE MIN 4 VIEWSon 10-14 XR [...] by: SHEN SOSA Date: 2022-10-24 10:22 Normal [facility] XR LSPINE MIN 4 VIEWSon 10-14 XR [...] by: SHEN SOSA Date: 2022-10-24 10:19 Normal [facility] H PYLORI ANTIBODY IGGon 10-0 H. PYLORI IGG ABS 0.07 Index Value Normal 0.00-0.79 [facility] Comment on above: Result Comment: Nega tive <0.80 Equivocal 0.80 - 0.89 Positive >0.89 Performed By: #### B REGULATORY LEADER, T7, CMP, TSH #### [facility] [address] [place] [address] Dr. Get hWitten BNPon 04-15-2022 Natriuretic peptide B (Bld) [Mass/Vol] 138.0 pg/mL Normal <=900.0 [facility] Comment on above: Performed By: #### B REGULATORY LEADER, T7, CMP, TSH #### [facility] [address] [place] [address] Dr. Get Whitten CBC AUTO DIFFon 04-15-2022 BASO # 0.0 103/ul Normal 0.0-0.1 [facility] Comment on above: Performed By: #### C MP, HSTROPN, BNP #### [facility] [address] [place] [address] Dr. Get Whitten Basophils/100 WBC (Bld) 0.4 % Normal 0.2-2.0 [facility] Comment on above: Performed By: #### C MP, HSTROPN, BNP #### [facility] [address] [place] [address] Dr. Get Whitten EO # 0.0 103/ul Normal 0.0-0.7 [facility] Comment on above: Performed By: #### C MP, HSTROPN, BNP #### [facility] [address] [place] [address] Dr. Get Whitten Eosinophils/100 WBC (Bld) 0.3 % Critically low 0.9-7.0 [facility] Comment on above: Performed By: #### C MP, HSTROPN, BNP #### [facility] [address] [place] [address] Dr. Get Whitten Erythrocyte distribution width (RBC) [Ratio] 13.2 % Normal 11.0-15.0 [facility] Comment on above: Performed By: #### C MP, HSTROPN, BNP #### [facility] [address] [place] [address] Dr. Get Whitten Hematocrit (Bld) [Volume fraction] 37.9 % Critically low 42.0-54.0 [facility] Comment on above: Performed By: #### C MP, HSTROPN, BNP #### [facility] [address] [place] [address] Dr. Get Whitten Hemoglobin (Bld) [Mass/Vol] 13.1 g/dL Critically low 14.0-18.0 [facility] Comment on above: Performed By: #### C MP, HSTROPN, BNP #### [facility] [address] [place] [address] Dr. Get Whitten IG # 0.24 10e3/ul Critically high 0.00-0.03 [facility] Comment on above: Performed By: #### C MP, HSTROPN, BNP #### [facility] [address] [place] [address] Dr. Get Whitten IG % 3.1 % Critically high 0.0-0.5 [facility] Comment on above: Performed By: #### C MP, HSTROPN, BNP #### [facility] [address] [place] [address] Dr. Get Whitten LYMPH # 3.1 103/ul Normal 1.2-3.8 [facility] Comment on above: Performed By: #### C MP, HSTROPN, BNP #### [facility] [address] [place] [address] Dr. Get Whitten Lymphocytes/100 WBC (Bld) 40.3 % Normal 20.5-60.0 [facility] Comment on above: Performed By: #### C MP, HSTROPN, BNP #### [facility] [address] [place] [address] Dr. Get Whitten MANUAL DIFF REQ NO Normal [facility] Comment on above: Performed By: #### C MP, HSTROPN, BNP #### [facility] [address] [place] [address] Dr. Get Whitten MCH (RBC) [Entitic mass] 36.1 pg Critically high 25.9-34.0 [facility] Comment on above: Performed By: #### C MP, HSTROPN, BNP #### [facility] [address] [place] [address] Dr. Get Whitten MCHC (RBC) [Mass/Vol] 34.6 g/dL Normal 29.9-35.2 [facility] Comment on above: Performed By: #### C MP, HSTROPN, BNP #### [facility] [address] [place] [address] Dr. Get Whitten MCV (RBC) [Entitic vol] 104.4 fL Critically high 80.0-94.0 [facility] Comment on above: Performed By: #### C MP, HSTROPN, BNP #### [facility] [address] [place] [address] Dr. Get Whitten MONO # 0.7 103/ul Normal 0.3-0.8 [facility] Comment on above: Performed By: #### C MP, HSTROPN, BNP #### [facility] [address] [place] [address] Dr. Get Whitten Monocytes/100 WBC (Bld) 9.4 % Normal 1.7-12.0 [facility] Comment on above: Performed By: #### C MP, HSTROPN, BNP #### [facility] [address] [place] [address] Dr. Get Whitten NEUT # 3.6 103/ul Normal 1.4-6.5 [facility] Comment on above: Performed By: #### C MP, HSTROPN, BNP #### [facility] [address] [place] [address] Dr. Get Whitten Neutrophils/100 WBC (Bld) 46.5 % Normal 43.0-75.0 [facility] Comment on above: Performed By: #### C MP, HSTROPN, BNP #### [facility] [address] [place] [address] Dr. Get Whitten Platelet mean volume (Bld) [Entitic vol] 8.5 fL Critically low 9.5-13.5 [facility] Comment on above: Performed By: #### C MP, HSTROPN, BNP #### [facility] [address] [place] [address] Dr. Get Whitten PLT 128 103/ul Critically low 150-450 [facility] Comment on above: Performed By: #### C MP, HSTROPN, BNP #### [facility] [address] [place] [address] Dr. Get Whitten RBC 3.63 106/ul Critically low 4.70-6.10 [facility] Comment on above: Performed By: #### C MP, HSTROPN, BNP #### [facility] [address] [place] [address] Dr. Get Whitten WBC 7.7 103/ul Normal 4.0-11.0 [facility] Comment on above: Performed By: #### C MP, HSTROPN, BNP #### [facility] [address] [place] [address] Dr. Get Whitten FREE THYROXINE INDEX T7on FTI 0.22 Critically low 1.30-4.50 [facility] Comment on above: Performed By: #### B REGULATORY LEADER, T7, CMP, TSH #### [facility] [address] [place] [address] Dr. Get Whitten T3U 37.0 % Normal 33.0-40.0 [facility] Comment on above: Performed By: #### B REGULATORY LEADER, T7, CMP, TSH #### [facility] [address] [place] [address] Dr. Get Whitten T4 [Mass/Vol] 0.60 ug/dL Critically low 4.50-12.10 [facility] Comment on above: Performed By: #### B REGULATORY LEADER, T7, CMP, TSH #### [facility] [address] [place] [address] Dr. Get Whitten IRONon 04-15-2022 Iron [Mass/Vol] 74.0 ug/dL Normal 65.0-175.0 [facility] Comment on above: Performed By: #### C VDTBH #### [facility] [address] [place] [address] Dr. Get Whitten PROF 14(COMP METB)on 022 Albumin [Mass/Vol] 3.6 g/dL Normal 3.4-5.0 [facility] Comment on above: Performed By: #### B REGULATORY LEADER, T7, CMP, TSH #### [facility] [address] [place] [address] Dr. Get Whitten Albumin/Globulin [Mass ratio] 1.3 {ratio} Normal [facility] Comment on above: Performed By: #### B REGULATORY LEADER, T7, CMP, TSH #### [facility] [address] [place] [address] Dr. Get Whitten ALP [Catalytic activity/Vol] 41 U/L Critically low 46-116 [facility] Comment on above: Performed By: #### B REGULATORY LEADER, T7, CMP, TSH #### [facility] [address] [place] [address] Dr. Get Whitten ALT [Catalytic activity/Vol] 111 U/L Critically high 16-63 [facility] Comment on above: Performed By: #### B REGULATORY LEADER, T7, CMP, TSH #### [facility] [address] [place] [address] Dr. Get Whitten Anion gap [Moles/Vol] 10.3 mmol/L Normal [facility] Comment on above: Performed By: #### B REGULATORY LEADER, T7, CMP, TSH #### [facility] [address] [place] [address] Dr. Get Whitten AST [Catalytic activity/Vol] 30 U/L Normal 15-37 [facility] Comment on above: Performed By: #### B REGULATORY LEADER, T7, CMP, TSH #### [facility] [address] [place] [address] Dr. Get Whitten Bilirubin [Mass/Vol] 0.3 mg/dL Normal 0.2-1.0 [facility] Comment on above: Performed By: #### B REGULATORY LEADER, T7, CMP, TSH #### [facility] [address] [place] [address] Dr. Get Whitten Calcium [Mass/Vol] 8.1 mg/dL Critically low 8.5-10.1 Th [facility] Comment on above: Performed By: #### B REGULATORY LEADER, T7, CMP, TSH #### [facility] [address] [address] [address] Get Whitten Chloride [Moles/Vol] 98 mmol/L Normal 98-107 [facility] Comment on above: Performed By: #### B REGULATORY LEADER, T7, CMP, TSH #### [facility] [address] [place] [address] Dr. Get Whitten CO2 [Moles/Vol] 24.7 mmol/L Normal 21.0-32.0 [facility] Comment on above: Performed By: #### B REGULATORY LEADER, T7, CMP, TSH #### [facility] [address] [place] [address] Dr. Get Whitten Creatinine [Mass/Vol] 1.24 mg/dL Normal 0.70-1.30 [facility] Comment on above: Performed By: #### B REGULATORY LEADER, T7, CMP, TSH #### [facility] [address] [place] [address] Dr. Get Whitten EGFR-AF BULGARIAN >60 Normal >=60 [facility] Comment on above: Performed By: #### B REGULATORY LEADER, T7, CMP, TSH #### [facility] [address] [place] [address] Dr. Get Whitten EGFR-NON AF BULGARIAN =60 Normal >=60 [facility] Comment on above: Performed By: #### B REGULATORY LEADER, T7, CMP, TSH #### [facility] [address] [place] [address] Dr. Get Whitten Globulin (S) [Mass/Vol] 2.7 g/dL Normal [facility] Comment on above: Performed By: #### B REGULATORY LEADER, T7, CMP, TSH #### [facility] [address] [place] [address] Dr. Get Whitten Glucose [Mass/Vol] 107 mg/dL Critically high 74-106 T [facility] Comment on above: Performed By: #### B REGULATORY LEADER, T7, CMP, TSH #### [facility] [address] [place] [address] Dr. Get Whitten Potassium [Moles/Vol] 4.0 mmol/L Normal 3.5-5.1 [facility] Comment on above: Performed By: #### B REGULATORY LEADER, T7, CMP, TSH #### [facility] [address] [place] [address] Dr. Get Whitten Protein [Mass/Vol] 6.3 g/dL Critically low 6.4-8.2 Th [facility] Comment on above: Performed By: #### B REGULATORY LEADER, T7, CMP, TSH #### [facility] [address] [place] [address] Dr. Get Whitten Sodium [Moles/Vol] 129 mmol/L Critically low 136-145 Th [facility] Comment on above: Performed By: #### B REGULATORY LEADER, T7, CMP, TSH #### [facility] [address] [place] [address] Dr. Get Whitten Urea nitrogen [Mass/Vol] 12.0 mg/dL Normal 7.0-18.0 [facility] Comment on above: Performed By: #### B REGULATORY LEADER, T7, CMP, TSH #### [facility] [address] [place] [address] Dr. Get Whitten Urea nitrogen/Creatinine [Mass ratio] 9.7 mg/mg Normal [facility] Comment on above: Performed By: #### B REGULATORY LEADER, T7, CMP, TSH #### [facility] [address] [place] [address] Dr. Get Whitten TSHon 04-15-2022 TSH 76.327 uIU/mL Critically high 0.358-3.740 [facility] Comment on above: Performed By: #### B REGULATORY LEADER, T7, CMP, TSH #### [facility] [address] [place] [address] Dr. Get Whitten BNPon 03-31-2022 Natriuretic peptide B (Bld) [Mass/Vol] 349.0 pg/mL Normal <=900.0 [facility] Comment on above: Performed By: #### B REGULATORY LEADER, T7, CMP, TSH #### [facility] [address] [place] [address] Dr. Get Whitten CBC W MANUAL DIFFon 03-31-20 ATYPICAL LYMPH # 0.26 103/ul Normal [facility] Comment on above: Performed By: #### C MP #### [facility] [address] [place] [address] Dr. Get Whitten ATYPICAL LYMPH % 2 % Normal [facility] Comment on above: Performed By: #### C MP #### [facility] [address] [place] [address] Dr. Get Whitten BAND # 0.0 103/ul Normal 0.0-0.3 [facility] Comment on above: Performed By: #### C MP #### [facility] [address] [place] [address] Dr. Get Whitten BAND % 0 % Normal 0-5 [facility] Comment on above: Performed By: #### C MP #### [facility] [address] [place] [address] Dr. Get Whitten BASOM # 0.00 103/ul Normal 0.00-0.10 [facility] Comment on above: Performed By: #### C MP #### [facility] [address] [place] [address] Dr. Get Whitten BASOM % 0.0 % Critically low 0.2-2.0 [facility] Comment on above: Performed By: #### C MP #### [facility] [address] [place] [address] Dr. Get Whitten BLAST # Normal [facility] Comment on above: Performed By: #### C MP #### [facility] [address] [place] [address] Dr. Get Whitten BLAST % Normal [facility] Comment on above: Performed By: #### C MP #### [facility] [address] [place] [address] Dr. Get Whitten CORRECTED WBC Normal 4.0-11.0 [facility] Comment on above: Performed By: #### C MP #### [facility] [address] [place] [address] Dr. Get Whitten EOS # 0.00 103/ul Normal 0.00-0.70 [facility] Comment on above: Performed By: #### C MP #### [facility] [address] [place] [address] Dr. Get Whitten EOS% 0.0 % Critically low 0.9-7.0 [facility] Comment on above: Performed By: #### C MP #### [facility] [address] [address] [address] Get Whitten HCT 38.3 % Critically low 42.0-54.0 [facility] Comment on above: Performed By: #### C MP #### [facility] [address] [address] [address] Get Whitten HGB 13.7 g/dl Critically low 14.0-18.0 [facility] Comment on above: Performed By: #### C MP #### [facility] [address] [address] [address] Get Whitten LYMPHM # 1.43 103/ul Normal 1.20-3.80 [facility] Comment on above: Performed By: #### C MP #### [facility] [address] [address] [address] Get Whitten LYMPHM% 11.0 % Critically low 20.5-60.0 [facility] Comment on above: Performed By: #### C MP #### [facility] [address] [address] [address] Get Whitten MCH 36.3 pg Critically high 25.9-34.0 [facility] Comment on above: Performed By: #### C MP #### [facility] [address] [address] [address] Get Whitten MCHC 35.8 g/dl Critically high 29.9-35.2 [facility] Comment on above: Performed By: #### C MP #### [facility] [address] [address] [address] Get Whitten MCV 101.6 fL Critically high 80.0-94.0 [facility] Comment on above: Performed By: #### C MP #### [facility] [address] [address] [address] Get Whitten METAMYELOCYTE # Normal [facility] Comment on above: Performed By: #### C MP #### [facility] [address] [address] [address] eGt Whitten METAMYELOCYTE % Normal [facility] Comment on above: Performed By: #### C MP #### [facility] [address] [address] [address] Get Whitten MONOM# 0.78 103/ul Normal 0.30-0.80 [facility] Comment on above: Performed By: #### C MP #### [facility] [address] [place] [address] Dr. Get Whitten MONOM% 6.0 % Normal 1.7-12.0 [facility] Comment on above: Performed By: #### C MP #### [facility] [address] [place] [address] Dr. Get Whitten MPV 8.7 fL Critically low 9.5-13.5 [facility] Comment on above: Performed By: #### C MP #### [facility] [address] [place] [address] Dr. Get Whitten MYELOCYTE # Normal [facility] Comment on above: Performed By: #### C MP #### [facility] [address] [place] [address] Dr. Get Whitten MYELOCYTE % Normal [facility] Comment on above: Performed By: #### C MP #### [facility] [address] [place] [address] Dr. Get Whitten NRBC Normal [facility] Comment on above: Performed By: #### C MP #### [facility] [address] [place] [address] Dr. Get Whitten PLT 225 103/ul Normal 150-450 [facility] Comment on above: Performed By: #### C MP #### [facility] [address] [place] [address] Dr. Get Whitten RBC 3.77 106/ul Critically low 4.70-6.10 [facility] Comment on above: Performed By: #### C MP #### [facility] [address] [address] [address] Get Whitten RDW 12.7 % Normal 11.0-15.0 [facility] Comment on above: Performed By: #### C MP #### [facility] [address] [address] [address] Get Whitten SEG # 10.53 103/ul Critically high 1.40-6.50 [facility] Comment on above: Performed By: #### C MP #### [facility] [address] [address] [address] Get Whitten SEG % 81.0 % Critically high 43.0-75.0 [facility] Comment on above: Performed By: #### C MP #### [facility] [address] [place] [address] Dr. Get Whitten WBC 13.0 103/ul Critically high 4.0-11.0 [facility] Comment on above: Performed By: #### C MP #### [facility] [address] [place] [address] Dr. Get Whitten CRPon 03-31-2022 CRP [Mass/Vol] mg/L Normal <=1.0 [facility] Comment on above: Performed By: #### B REGULATORY LEADER, T7, CMP, TSH #### [facility] [address] [place] [address] Dr. Get Whitten PROF 14(COMP METB)on 022 Albumin [Mass/Vol] 3.3 g/dL Critically low 3.4-5.0 [facility] Comment on above: Performed By: #### B REGULATORY LEADER, T7, CMP, TSH #### [facility] [address] [place] [address] Dr. Get Whitten Albumin/Globulin [Mass ratio] 1.2 {ratio} Normal [facility] Comment on above: Performed By: #### B REGULATORY LEADER, T7, CMP, TSH #### [facility] [address] [place] [address] Dr. Get Whitten ALP [Catalytic activity/Vol] 48 U/L Normal 46-116 [facility] Comment on above: Performed By: #### B REGULATORY LEADER, T7, CMP, TSH #### [facility] [address] [address] [address] Get Whitten ALT [Catalytic activity/Vol] 130 U/L Critically high 16-63 [facility] Comment on above: Performed By: #### B REGULATORY LEADER, T7, CMP, TSH #### [facility] [address] [place] [address] Dr. Get Whitten Anion gap [Moles/Vol] 11.9 mmol/L Normal [facility] Comment on above: Performed By: #### B REGULATORY LEADER, T7, CMP, TSH #### [facility] [address] [place] [address] Dr. Get Whitten AST [Catalytic activity/Vol] 50 U/L Critically high 15-37 [facility] Comment on above: Performed By: #### B REGULATORY LEADER, T7, CMP, TSH #### [facility] [address] [place] [address] Dr. Get Whitten Bilirubin [Mass/Vol] 0.5 mg/dL Normal 0.2-1.0 [facility] Comment on above: Performed By: #### B REGULATORY LEADER, T7, CMP, TSH #### [facility] [address] [address] [address] Get Whitten Calcium [Mass/Vol] 7.9 mg/dL Critically low 8.5-10.1 Th e [facility] Comment on above: Performed By: #### B REGULATORY LEADER, T7, CMP, TSH #### [facility] [address] [address] [address] Get Whitten Chloride [Moles/Vol] 99 mmol/L Normal 98-107 [facility] Comment on above: Performed By: #### B REGULATORY LEADER, T7, CMP, TSH #### [facility] [address] [place] [address] Dr. Get Whitten CO2 [Moles/Vol] 18.4 mmol/L Critically low 21.0-32.0 [facility] Comment on above: Performed By: #### B REGULATORY LEADER, T7, CMP, TSH #### [facility] [address] [place] [address] Dr. Get Whitten Creatinine [Mass/Vol] 0.96 mg/dL Normal 0.70-1.30 [facility] Comment on above: Performed By: #### B REGULATORY LEADER, T7, CMP, TSH #### [facility] [address] [place] [address] Dr. Get Whitten EGFR-AF BULGARIAN >60 Normal >=60 [facility] Comment on above: Performed By: #### B REGULATORY LEADER, T7, CMP, TSH #### [facility] [address] [address] [address] Get Whitten EGFR-NON AF BULGARIAN >60 Normal >=60 [facility] Comment on above: Performed By: #### B REGULATORY LEADER, T7, CMP, TSH #### [facility] [address] [place] [address] Dr. Get Whitten Globulin (S) [Mass/Vol] 2.8 g/dL Normal [facility] Comment on above: Performed By: #### B REGULATORY LEADER, T7, CMP, TSH #### [facility] [address] [place] [address] Dr. Get Whitten Glucose [Mass/Vol] 166 mg/dL Critically high 74-106 T [facility] Comment on above: Performed By: #### B REGULATORY LEADER, T7, CMP, TSH #### [facility] [address] [place] [address] Dr. Get Whitten Potassium [Moles/Vol] 3.3 mmol/L Critically low 3.5-5.1 [facility] Comment on above: Performed By: #### B REGULATORY LEADER, T7, CMP, TSH #### [facility] [address] [place] [address] Dr. Get Whitten Protein [Mass/Vol] 6.1 g/dL Critically low 6.4-8.2 [facility] Comment on above: Performed By: #### B REGULATORY LEADER, T7, CMP, TSH #### [facility] [address] [place] [address] Dr. Get Whitten Sodium [Moles/Vol] 126 mmol/L Critically low 136-145 Th [facility] Comment on above: Performed By: #### B REGULATORY LEADER, T7, CMP, TSH #### [facility] [address] [place] [address] Dr. Get Whitten Urea nitrogen [Mass/Vol] 8.0 mg/dL Normal 7.0-18.0 [facility] Comment on above: Performed By: #### B REGULATORY LEADER, T7, CMP, TSH #### [facility] [address] [place] [address] Dr. Get Whitten Urea nitrogen/Creatinine [Mass ratio] 8.3 mg/mg Normal [facility] Comment on above: Performed By: #### B REGULATORY LEADER, T7, CMP, TSH #### [facility] [address] [place] [address] Dr. Get Whitten BNPon 03-30-2022 Natriuretic peptide B (Bld) [Mass/Vol] 274.0 pg/mL Normal <=900.0 [facility] Comment on above: Performed By: #### C MP, HSTROPN, BNP #### [facility] [address] [place] [address] Dr. Get Whitten CARDIAC ANA 3-6on 2 CK [Catalytic activity/Vol] 48 U/L Normal 39-308 [facility] Comment on above: Performed By: #### B REGULATORY LEADER, T7, CMP, TSH #### [facility] [address] [place] [address] Dr. Get Whitten CK.MB [Mass/Vol] 1.62 ng/mL Normal <=3.60 [facility] Comment on above: Performed By: #### B REGULATORY LEADER, T7, CMP, TSH #### [facility] [address] [place] [address] Dr. Get Whitten HSTROP 15.7 pg/mL Normal 4.0-76.1 [facility] Comment on above: Result Comment: CUT- OFF POINTS HAVE BEEN ESTABLISHED BASED ON THE FOURTH UNIVERSAL DEFINITIONS OF MYOCARDIAL INFARCTION. THE UPPER REFERENCE LIMIT (URL) OF TROPONIN, DEFINED THE 99TH PERCENTILE OF cTnI DISTRIBUTION IN A REFERENCE POPULATION, HAS BEEN CONFIRMED THE DECISION THRESHOLD FOR [place] DIAGNOSIS. Performed By: #### B REGULATORY LEADER, T7, CMP, TSH #### [facility] [address] [place] [address] Dr. Get Whitten CBC AUTO DIFFon 03-30-2022 BASO # 0.1 103/ul Normal 0.0-0.1 [facility] Comment on above: Performed By: #### C MP #### [facility] [address] [address] [address] Get Whitten Basophils/100 WBC (Bld) 0.8 % Normal 0.2-2.0 [facility] Comment on above: Performed By: #### C MP #### [facility] [address] [address] [address] Get Whitten EO # 0.6 103/ul Normal 0.0-0.7 [facility] Comment on above: Performed By: #### C MP #### [facility] [address] [address] [address] Get Whitten Eosinophils/100 WBC (Bld) 5.2 % Normal 0.9-7.0 [facility] Comment on above: Performed By: #### C MP #### [facility] [address] [address] [address] Get Whitten Erythrocyte distribution width (RBC) [Ratio] 12.7 % Normal 11.0-15.0 [facility] Comment on above: Performed By: #### C MP #### [facility] [address] [address] [address] Get Whitten Hematocrit (Bld) [Volume fraction] 41.7 % Critically low 42.0-54.0 [facility] Comment on above: Performed By: #### C MP #### [facility] [address] [address] [address] Get Whitten Hemoglobin (Bld) [Mass/Vol] 14.9 g/dL Normal 14.0-18.0 [facility] Comment on above: Performed By: #### C MP #### [facility] [address] [address] [address] Get Whitten IG # 0.48 10e3/ul Critically high 0.00-0.03 [facility] Comment on above: Performed By: #### C MP #### [facility] [address] [address] [address] Get Whitten IG % 4.1 % Critically high 0.0-0.5 [facility] Comment on above: Performed By: #### C MP #### [facility] [address] [address] [address] Get Whitten LYMPH # 1.4 103/ul Normal 1.2-3.8 [facility] Comment on above: Performed By: #### C MP #### [facility] [address] [place] [address] Dr. Get Whitten Lymphocytes/100 WBC (Bld) 11.9 % Critically low 20.5-60.0 [facility] Comment on above: Performed By: #### C MP #### [facility] [address] [place] [address] Dr. Get Whitten MANUAL DIFF REQ NO Normal [facility] Comment on above: Performed By: #### C MP #### [facility] [address] [address] [address] Get Whitten MCH (RBC) [Entitic mass] 36.8 pg Critically high 25.9-34.0 [facility] Comment on above: Performed By: #### C MP #### [facility] [address] [place] [address] Dr. Get Whitten MCHC (RBC) [Mass/Vol] 35.7 g/dL Critically high 29.9-35.2 [facility] Comment on above: Performed By: #### C MP #### [facility] [address] [place] [address] Dr. Get Whitten MCV (RBC) [Entitic vol] 103.0 fL Critically high 80.0-94.0 [facility] Comment on above: Performed By: #### C MP #### [facility] [address] [place] [address] Dr. Get Whitten MONO # 0.5 103/ul Normal 0.3-0.8 [facility] Comment on above: Performed By: #### C MP #### [facility] [address] [place], [place] [id number] Dr. Get Whitten Monocytes/100 WBC (Bld) 4.3 % Normal 1.7-12.0 [facility] Comment on above: Performed By: #### C MP #### [facility] [address] [place] [address] Dr. Get Whitten NEUT # 8.6 103/ul Critically high 1.4-6.5 [facility] Comment on above: Performed By: #### C MP #### [facility] [address] [place] [address] Dr. Get Whitten Neutrophils/100 WBC (Bld) 73.7 % Normal 43.0-75.0 [facility] Comment on above: Performed By: #### C MP #### [facility] [address] [place] [address] Dr. Get Whitten Platelet mean volume (Bld) [Entitic vol] 9.0 fL Critically low 9.5-13.5 [facility] Comment on above: Performed By: #### C MP #### [facility] [address] [place] [address] Dr. Get Whitten PLT 244 103/ul Normal 150-450 [facility] Comment on above: Performed By: #### C MP #### [facility] [address] [place] [address] Dr. Get Whitten RBC 4.05 106/ul Critically low 4.70-6.10 [facility] Comment on above: Performed By: #### C MP #### [facility] [address] [place] [address] Dr. Get Whitten WBC 11.7 103/ul Critically high 4.0-11.0 [facility] Comment on above: Performed By: #### C MP #### [facility] [address] [place] [address] Dr. Get Whitten CRPon 03-30-2022 CRP 0.3 mg/dL Normal <=1.0 [facility] Comment on above: Performed By: #### C MP, HSTROPN, BNP #### [facility] [address] [place] [address] Dr. Get Whitten CULTURE SPUTUMon 03-30-2022 CULTURE SPUTUM Culture Observations : METHICILLIN RESISTANT STAPH AUREUS ISOLATED. PLEASE FOLLOW APPROPRIATE ISOLATION PROCEDURES. Culture Observations: Gave MRSA result to Diana Matos RN on 03/30 @ 0896 Culture Observations: Growth of mold-like organism, sending [...] F Oxacillin >=4 R F Normal [facility] Comment on above: Performed By: #### B REGULATORY LEADER, T7, CMP, TSH #### [facility] [address] [address] [address] Get Whitten ECHO LIMITED STUDYon 022 ECHO LIMITED STUDY Patient: REHAN POOLE Exam Date: 03/30/2022 : 1965 Gender:M Ordering : DR PEE GUADALUPE . Admission #: [id number] Family : Order #: [id number] CLICK HERE TO VIEW EXAM ECHOCARDIOGRAM REPORT [...] Dominguez M.D. on 03/31/2022 at 19:42 Normal [facility] PROF 14(COMP METB)on 022 Albumin [Mass/Vol] 3.5 g/dL Normal 3.4-5.0 [facility] Comment on above: Performed By: #### C MP, HSTROPN, BNP #### [facility] [address] [place] [address] Dr. Get Whitten Albumin/Globulin [Mass ratio] 1.2 {ratio} Normal [facility] Comment on above: Performed By: #### C MP, HSTROPN, BNP #### [facility] [address] [address] [address] Get Whitten ALP [Catalytic activity/Vol] 58 U/L Normal 46-116 [facility] Comment on above: Performed By: #### C MP, HSTROPN, BNP #### [facility] [address] [address] [address] Get Whitten ALT [Catalytic activity/Vol] 108 U/L Critically high 16-63 [facility] Comment on above: Performed By: #### C MP, HSTROPN, BNP #### [facility] [address] [address] [address] Get Whitten Anion gap [Moles/Vol] 12.6 mmol/L Normal [facility] Comment on above: Performed By: #### C MP, HSTROPN, BNP #### [facility] [address] [address] [address] Get Whitten AST [Catalytic activity/Vol] 33 U/L Normal 15-37 [facility] Comment on above: Performed By: #### C MP, HSTROPN, BNP #### [facility] [address] [address] [address] Get Whitten Bilirubin [Mass/Vol] 0.6 mg/dL Normal 0.2-1.0 [facility] Comment on above: Performed By: #### C MP, HSTROPN, BNP #### [facility] [address] [place] [address] Dr. Get Whitten Calcium [Mass/Vol] 8.0 mg/dL Critically low 8.5-10.1 [facility] Comment on above: Performed By: #### C MP, HSTROPN, BNP #### [facility] [address] [address] [address] Get Whitten Chloride [Moles/Vol] 99 mmol/L Normal 98-107 [facility] Comment on above: Performed By: #### C MP, HSTROPN, BNP #### [facility] [address] [address] [address] Get Whitten CO2 [Moles/Vol] 22.0 mmol/L Normal 21.0-32.0 [facility] Comment on above: Performed By: #### C MP, HSTROPN, BNP #### [facility] [address] [address] [address] Get Whitten Creatinine [Mass/Vol] 1.12 mg/dL Normal 0.70-1.30 [facility] Comment on above: Performed By: #### C MP, HSTROPN, BNP #### [facility] [address] [address] [address] Get Whitten EGFR-AF BULGARIAN >60 Normal >=60 [facility] Comment on above: Performed By: #### C MP, HSTROPN, BNP #### [facility] [address] [place] [address] Dr. Get hWitten EGFR-NON AF BULGARIAN >60 Normal >=60 [facility] Comment on above: Performed By: #### C MP, HSTROPN, BNP #### [facility] [address] [place] [address] Dr. Get Whitten Globulin (S) [Mass/Vol] 3.0 g/dL Normal [facility] Comment on above: Performed By: #### C MP, HSTROPN, BNP #### [facility] [address] [place] [address] Dr. Get Whitten Glucose [Mass/Vol] 135 mg/dL Critically high 74-106 [facility] Comment on above: Performed By: #### C MP, HSTROPN, BNP #### [facility] [address] [place] [address] Dr. Get Whitten Potassium [Moles/Vol] 3.6 mmol/L Normal 3.5-5.1 [facility] Comment on above: Performed By: #### C MP, HSTROPN, BNP #### [facility] [address] [place] [address] Dr. Get Whitten Protein [Mass/Vol] 6.5 g/dL Normal 6.4-8.2 [facility] Comment on above: Performed By: #### C MP, HSTROPN, BNP #### [facility] [address] [place] [address] Dr. Get Whitten Sodium [Moles/Vol] 130 mmol/L Critically low 136-145 [facility] Comment on above: Performed By: #### C MP, HSTROPN, BNP #### [facility] [address] [place] [address] Dr. Get Whitten Urea nitrogen [Mass/Vol] 7.0 mg/dL Normal 7.0-18.0 [facility] Comment on above: Performed By: #### C MP, HSTROPN, BNP #### [facility] [address] [address] [address] Get Whitten Urea nitrogen/Creatinine [Mass ratio] 6.2 mg/mg Normal [facility] Comment on above: Performed By: #### C MP, HSTROPN, BNP #### [facility] [address] [place] [address] Dr. Get Whitten CARDIAC ANA 3-6on 2 CK [Catalytic activity/Vol] 51 U/L Normal 39-308 [facility] Comment on above: Performed By: #### C VDTBH #### [facility] [address] [place] [address] Dr. Get Whitten CK.MB [Mass/Vol] 1.89 ng/mL Normal <=3.60 [facility] Comment on above: Performed By: #### C VDTBH #### [facility] [address] [place] [address] Dr. Get Whitten HSTROP 14.4 pg/mL Normal 4.0-76.1 [facility] Comment on above: Result Comment: CUT- OFF POINTS HAVE BEEN ESTABLISHED BASED ON THE FOURTH UNIVERSAL DEFINITIONS OF MYOCARDIAL INFARCTION. THE UPPER REFERENCE LIMIT (URL) OF TROPONIN, DEFINED THE 99TH PERCENTILE OF cTnI DISTRIBUTION IN A REFERENCE POPULATION, HAS BEEN CONFIRMED THE DECISION THRESHOLD FOR KS DIAGNOSIS. Performed By: #### C VDTBH #### [facility] [address] [place] [address] Dr. Get Whitten CARDIAC ANA ADMITon 022 CK [Catalytic activity/Vol] 128 U/L Normal 39-308 [facility] Comment on above: Performed By: #### C MP, HSTROPN, BNP #### [facility] [address] [address] [address] Get Whitten CK.MB [Mass/Vol] 2.22 ng/mL Normal <=3.60 [facility] Comment on above: Performed By: #### C MP, HSTROPN, BNP #### [facility] [address] [place] [address] Dr. Get Whitten HSTROP 11.2 pg/mL Normal 4.0-76.1 [facility] Comment on above: Result Comment: CUT- OFF POINTS HAVE BEEN ESTABLISHED BASED ON THE FOURTH UNIVERSAL DEFINITIONS OF MYOCARDIAL INFARCTION. THE UPPER REFERENCE LIMIT (URL) OF TROPONIN, DEFINED THE 99TH PERCENTILE OF cTnI DISTRIBUTION IN A REFERENCE POPULATION, HAS BEEN CONFIRMED THE DECISION THRESHOLD FOR KS DIAGNOSIS. Performed By: #### C MP, HSTROPN, BNP #### [facility] [address] [place] [address] Dr. Get Whitten RAFA 40 ng/mL Normal 16-96 [facility] Comment on above: Performed By: #### C MP, HSTROPN, BNP #### [facility] [address] [place] [address] Dr. Get Whitten CBC AUTO DIFFon 03-29-2022 BASO # 0.1 103/ul Normal 0.0-0.1 [facility] Comment on above: Performed By: #### O SMOU #### [facility] [address] [place] [address] Dr. Get Whitten Basophils/100 WBC (Bld) 0.4 % Normal 0.2-2.0 [facility] Comment on above: Performed By: #### O SMOU #### [facility] [address] [place] [address] Dr. Get Whitten EO # 0.0 103/ul Normal 0.0-0.7 [facility] Comment on above: Performed By: #### O SMOU #### [facility] [address] [place] [address] Dr. Get Whitten Eosinophils/100 WBC (Bld) 0.1 % Critically low 0.9-7.0 [facility] Comment on above: Performed By: #### O SMOU #### [facility] [address] [place] [address] Dr. Get Whitten Erythrocyte distribution width (RBC) [Ratio] 12.8 % Normal 11.0-15.0 [facility] Comment on above: Performed By: #### O SMOU #### [facility] [address] [place] [address] Dr. Get Whitten Hematocrit (Bld) [Volume fraction] 42.1 % Normal 42.0-54.0 [facility] Comment on above: Performed By: #### O SMOU #### [facility] [address] [place] [address] Dr. Get Whitten Hemoglobin (Bld) [Mass/Vol] 15.3 g/dL Normal 14.0-18.0 [facility] Comment on above: Performed By: #### O SMOU #### [facility] [address] [place] [address] Dr. Get Whitten IG # 0.49 10e3/ul Critically high 0.00-0.03 [facility] Comment on above: Performed By: #### O SMOU #### [facility] [address] [place] [address] Dr. Get Whitten IG % 3.6 % Critically high 0.0-0.5 [facility] Comment on above: Performed By: #### O SMOU #### [facility] [address] [place] [address] Dr. Get Whitten LYMPH # 2.2 103/ul Normal 1.2-3.8 [facility] Comment on above: Performed By: #### O SMOU #### [facility] [address] [place] [address] Dr. Get Whitten Lymphocytes/100 WBC (Bld) 16.1 % Critically low 20.5-60.0 [facility] Comment on above: Performed By: #### O SMOU #### [facility] [address] [place] [address] Dr. Get Whitten MANUAL DIFF REQ NO Normal [facility] Comment on above: Performed By: #### O SMOU #### [facility] [address] [place] [address] Dr. Get Whitten MCH (RBC) [Entitic mass] 36.3 pg Critically high 25.9-34.0 [facility] Comment on above: Performed By: #### O SMOU #### [facility] [address] [place] [address] Dr. Get Whitten MCHC (RBC) [Mass/Vol] 36.3 g/dL Critically high 29.9-35.2 [facility] Comment on above: Performed By: #### O SMOU #### [facility] [address] [place] [address] Dr. Get Whitten MCV (RBC) [Entitic vol] 100.0 fL Critically high 80.0-94.0 [facility] Comment on above: Performed By: #### O SMOU #### [facility] [address] [place] [address] Dr. Get Whitten MONO # 1.1 103/ul Critically high 0.3-0.8 [facility] Comment on above: Performed By: #### O SMOU #### [facility] [address] [place] [address] Dr. Get Whitten Monocytes/100 WBC (Bld) 8.3 % Normal 1.7-12.0 [facility] Comment on above: Performed By: #### O SMOU #### [facility] [address] [place] [address] Dr. Get Whitten NEUT # 9.6 103/ul Critically high 1.4-6.5 [facility] Comment on above: Performed By: #### O SMOU #### [facility] [address] [place] [address] Dr. Get Whitten Neutrophils/100 WBC (Bld) 71.5 % Normal 43.0-75.0 [facility] Comment on above: Performed By: #### O SMOU #### [facility] [address] [place] [address] Dr. Get Whitten Platelet mean volume (Bld) [Entitic vol] 9.1 fL Critically low 9.5-13.5 [facility] Comment on above: Performed By: #### O SMOU #### [facility] [address] [place] [address] Dr. Get Whitten PLT 228 103/ul Normal 150-450 [facility] Comment on above: Performed By: #### O SMOU #### [facility] [address] [place] [address] Dr. Get Whitten RBC 4.21 106/ul Critically low 4.70-6.10 [facility] Comment on above: Performed By: #### O SMOU #### [facility] [address] [address] [address] Get Whitten WBC 13.4 103/ul Critically high 4.0-11.0 [facility] Comment on above: Performed By: #### O SMOU #### [facility] [address] [place] [address] Dr. Get Whitten [facility] SARS-CoV-2 (COVID-19) RNA ASHLEE+probe Ql (Unsp spec) Detected Critically abnormal NOT DETECTED [facility] Comment on above: Result Comment: This test is not yet approved or cleared by the [place] FDA. When there are no FDA-approved or cleared tests available, and other criteria are met, FDA can make tests available under an emergency access mechanism called an Emergency Use Authorization (EUA). The EUA for this test is supported by the Route Deliverer of Health and Human Service's declaration that [...] used). Performed By: #### C VDTBH #### [facility] [address] [place] [address] Dr. Get Whitten OSMOLALITYon 03-29-2022 Osmolality [Osmolality] 257 mosm/kg Critically low 275-295 [facility] Comment on above: Performed By: #### C VDTBH #### [facility] [address] [place] [address] Dr. Get Whitten OSMOLALITY URINEon Osmolality, Urine 251 mOsmol/kg Normal [facility] Comment on above: Result Comment: 24 h r : 300 - 900 Random: 50 - 1400 After 12hr fluid restriction: >850 Performed By: #### O SMOU #### [facility] [address] [place] [address] Dr. Get Whitten PROF CHEM 8 (BAS METB)on Anion gap [Moles/Vol] 17.1 mmol/L Normal [facility] Comment on above: Performed By: #### C MP, HSTROPN, BNP #### [facility] [address] [place] [address] Dr. Get Whitten Calcium [Mass/Vol] 8.4 mg/dL Critically low 8.5-10.1 Th [facility] Comment on above: Performed By: #### C MP, HSTROPN, BNP #### [facility] [address] [place] [address] Dr. Get Whitten Chloride [Moles/Vol] 98 mmol/L Normal 98-107 [facility] Comment on above: Performed By: #### C MP, HSTROPN, BNP #### [facility] [address] [place] [address] Dr. Get Whitten CO2 [Moles/Vol] 18.1 mmol/L Critically low 21.0-32.0 [facility] Comment on above: Performed By: #### C MP, HSTROPN, BNP #### [facility] [address] [place] [address] Dr. Get Whitten Creatinine [Mass/Vol] 0.98 mg/dL Normal 0.70-1.30 [facility] Comment on above: Performed By: #### C MP, HSTROPN, BNP #### [facility] [address] [place] [address] Dr. Get Whitten EGFR-AF BULGARIAN >60 Normal >=60 [facility] Comment on above: Performed By: #### C MP, HSTROPN, BNP #### [facility] [address] [place] [address] Dr. Get Whitten EGFR-NON AF BULGARIAN >60 Normal >=60 [facility] Comment on above: Performed By: #### C MP, HSTROPN, BNP #### [facility] [address] [place] [address] Dr. Get Whitten Glucose [Mass/Vol] 94 mg/dL Normal 74-106 [facility] Comment on above: Performed By: #### C FILOMENA HSTROPRenée, BNP #### [facility] [address] [place] [address] Dr. Get Whitten Potassium [Moles/Vol] 4.2 mmol/L Normal 3.5-5.1 [facility] Comment on above: Performed By: #### C FILOMENA HSTROPN, BNP #### [facility] [address] [place] [address] Dr. Get Whitten Sodium [Moles/Vol] 129 mmol/L Critically low 136-145 Th [facility] Comment on above: Performed By: #### C CHON BUTTTROPN, BNP #### [facility] [address] [place] [address] Dr. Get Whitten Urea nitrogen [Mass/Vol] 8.0 mg/dL Normal 7.0-18.0 [facility] Comment on above: Performed By: #### C FILOMENA HSTROPN, BNP #### [facility] [address] [place] [address] Dr. Get Whitten Urea nitrogen/Creatinine [Mass ratio] 8.2 mg/mg Normal [facility] Comment on above: Performed By: #### C CHON BUTTTROPN, BNP #### [facility] [address] [place] [address] Dr. Get Whitten XR CHEST 1 Von [...] by: GARETH ROMERO Date: 2022-03-29 18:30 Normal [facility] BNPon 03-28-2022 Natriuretic peptide B (Bld) [Mass/Vol] 401.0 pg/mL Normal <=900.0 [facility] Comment on above: Performed By: #### B REGULATORY LEADER, T7, CMP, TSH #### [facility] [address] [address] [address] Get Whitten CBC W MANUAL DIFFon 03-28-20 22 ATYPICAL LYMPH # Normal [facility] Comment on above: Performed By: #### B REGULATORY LEADER, T7, CMP, TSH #### [facility] [address] [address] [address] Get Whitten ATYPICAL LYMPH % Normal [facility] Comment on above: Performed By: #### B REGULATORY LEADER, T7, CMP, TSH #### [facility] [address] [address] [address] Get Whitten BAND # 0.3 103/ul Normal 0.0-0.3 [facility] Comment on above: Performed By: #### B REGULATORY LEADER, T7, CMP, TSH #### [facility] [address] [place] [address] Dr. Get Whitten BAND % 2 % Normal 0-5 [facility] Comment on above: Performed By: #### B REGULATORY LEADER, T7, CMP, TSH #### [facility] [address] [address] [address] Get Whitten BASOM # 0.00 103/ul Normal 0.00-0.10 [facility] Comment on above: Performed By: #### B REGULATORY LEADER, T7, CMP, TSH #### [facility] [address] [address] [address] Get Whitten BASOM % 0.0 % Critically low 0.2-2.0 [facility] Comment on above: Performed By: #### B REGULATORY LEADER, T7, CMP, TSH #### [facility] [address] [address] [address] Get Whitten BLAST # Normal [facility] Comment on above: Performed By: #### B REGULATORY LEADER, T7, CMP, TSH #### [facility] [address] [address] [address] Get Whitten BLAST % Normal [facility] Comment on above: Performed By: #### B REGULATORY LEADER, T7, CMP, TSH #### [facility] [address] [address] [address] Get Whitten CORRECTED WBC Normal 4.0-11.0 [facility] Comment on above: Performed By: #### B REGULATORY LEADER, T7, CMP, TSH #### [facility] [address] [place] [address] Dr. Get Whitten EOS # 0.00 103/ul Normal 0.00-0.70 [facility] Comment on above: Performed By: #### B REGULATORY LEADER, T7, CMP, TSH #### [facility] [address] [place] [address] Dr. Get Whitten EOS% 0.0 % Critically low 0.9-7.0 [facility] Comment on above: Performed By: #### B REGULATORY LEADER, T7, CMP, TSH #### [facility] [address] [place] [address] Dr. Get Whitten HCT 36.3 % Critically low 42.0-54.0 [facility] Comment on above: Performed By: #### B REGULATORY LEADER, T7, CMP, TSH #### [facility] [address] [place] [address] Dr. Get Whitten HGB 12.9 g/dl Critically low 14.0-18.0 [facility] Comment on above: Performed By: #### B REGULATORY LEADER, T7, CMP, TSH #### [facility] [address] [place] [address] Dr. Get Whitten HYPERSEG NEUT SLIGHT Normal [facility] Comment on above: Performed By: #### B REGULATORY LEADER, T7, CMP, TSH #### [facility] [address] [place] [address] Dr. Get Whitten LYMPHM # 0.89 103/ul Critically low 1.20-3.80 [facility] Comment on above: Performed By: #### B REGULATORY LEADER, T7, CMP, TSH #### [facility] [address] [place] [address] Dr. Get Whitten LYMPHM% 7.0 % Critically low 20.5-60.0 [facility] Comment on above: Performed By: #### B REGULATORY LEADER, T7, CMP, TSH #### [facility] [address] [address] [address] Get Whitten MCH 36.5 pg Critically high 25.9-34.0 [facility] Comment on above: Performed By: #### B REGULATORY LEADER, T7, CMP, TSH #### [facility] [address] [address] [address] Get Whitten MCHC 35.5 g/dl Critically high 29.9-35.2 [facility] Comment on above: Performed By: #### B REGULATORY LEADER, T7, CMP, TSH #### [facility] [address] [address] [address] Get Whitten MCV 102.8 fL Critically high 80.0-94.0 [facility] Comment on above: Performed By: #### B REGULATORY LEADER, T7, CMP, TSH #### [facility] [address] [place] [address] Dr. Get Whitten METAMYELOCYTE # Normal [facility] Comment on above: Performed By: #### B REGULATORY LEADER, T7, CMP, TSH #### [facility] [address] [place] [address] Dr. Get Whitten METAMYELOCYTE % Normal [facility] Comment on above: Performed By: #### B REGULATORY LEADER, T7, CMP, TSH #### [facility] [address] [address] [address] Get Whitten MONOM# 1.02 103/ul Critically high 0.30-0.80 [facility] Comment on above: Performed By: #### B REGULATORY LEADER, T7, CMP, TSH #### [facility] [address] [address] [address] Get Whitten MONOM% 8.0 % Normal 1.7-12.0 [facility] Comment on above: Performed By: #### B REGULATORY LEADER, T7, CMP, TSH #### [facility] [address] [address] [address] Get Whitten MPV 9.1 fL Critically low 9.5-13.5 [facility] Comment on above: Performed By: #### B REGULATORY LEADER, T7, CMP, TSH #### [facility] [address] [address] [address] Get Whitten MYELOCYTE # Normal [facility] Comment on above: Performed By: #### B REGULATORY LEADER, T7, CMP, TSH #### [facility] [address] [address] [address] Get Whitten MYELOCYTE % Normal [facility] Comment on above: Performed By: #### B REGULATORY LEADER, T7, CMP, TSH #### [facility] [address] [address] [address] Get Whitten NRBC Normal [facility] Comment on above: Performed By: #### B REGULATORY LEADER, T7, CMP, TSH #### [facility] [address] [place] [address] Dr. Get Whitten PLT 181 103/ul Normal 150-450 [facility] Comment on above: Performed By: #### B REGULATORY LEADER, T7, CMP, TSH #### [facility] [address] [address] [address] Get Whitten RBC 3.53 106/ul Critically low 4.70-6.10 [facility] Comment on above: Performed By: #### B REGULATORY LEADER, T7, CMP, TSH #### [facility] [address] [place] [address] Dr. Get Whitten RDW 12.7 % Normal 11.0-15.0 [facility] Comment on above: Performed By: #### B REGULATORY LEADER, T7, CMP, TSH #### [facility] [address] [address] [address] Get Whitten SEG # 10.54 103/ul Critically high 1.40-6.50 [facility] Comment on above: Performed By: #### B REGULATORY LEADER, T7, CMP, TSH #### [facility] [address] [place] [address] Dr. Get Whitten SEG % 83.0 % Critically high 43.0-75.0 [facility] Comment on above: Performed By: #### B REGULATORY LEADER, T7, CMP, TSH #### [facility] [address] [place] [address] Dr. Get Whitten WBC 12.7 103/ul Critically high 4.0-11.0 [facility] Comment on above: Performed By: #### B REGULATORY LEADER, T7, CMP, TSH #### [facility] [address] [address] [address] Get Whitten PROF 14(COMP METB)on 022 Albumin [Mass/Vol] 3.0 g/dL Critically low 3.4-5.0 [facility] Comment on above: Performed By: #### B REGULATORY LEADER, T7, CMP, TSH #### [facility] [address] [address] [address] Get Whitten Albumin/Globulin [Mass ratio] 1.2 {ratio} Normal [facility] Comment on above: Performed By: #### B REGULATORY LEADER, T7, CMP, TSH #### [facility] [address] [place] [address] Dr. Get Whitten ALP [Catalytic activity/Vol] 39 U/L Critically low 46-116 [facility] Comment on above: Performed By: #### B REGULATORY LEADER, T7, CMP, TSH #### [facility] [address] [address] [address] Get Whitten ALT [Catalytic activity/Vol] 94 U/L Critically high 16-63 [facility] Comment on above: Performed By: #### B REGULATORY LEADER, T7, CMP, TSH #### [facility] [address] [address] [address] Get Whitten Anion gap [Moles/Vol] 11.4 mmol/L Normal [facility] Comment on above: Performed By: #### B REGULATORY LEADER, T7, CMP, TSH #### [facility] [address] [address] [address] Get Whitten AST [Catalytic activity/Vol] 37 U/L Normal 15-37 [facility] Comment on above: Performed By: #### B REGULATORY LEADER, T7, CMP, TSH #### [facility] [address] [address] [address] Get Whitetn Bilirubin [Mass/Vol] 0.4 mg/dL Normal 0.2-1.0 [facility] Comment on above: Performed By: #### B REGULATORY LEADER, T7, CMP, TSH #### [facility] [address] [place] [address] Dr. Get Whitten Calcium [Mass/Vol] 7.9 mg/dL Critically low 8.5-10.1 [facility] Comment on above: Performed By: #### B REGULATORY LEADER, T7, CMP, TSH #### [facility] [address] [place] [address] Dr. Get Whitten Chloride [Moles/Vol] 102 mmol/L Normal 98-107 [facility] Comment on above: Performed By: #### B REGULATORY LEADER, T7, CMP, TSH #### [facility] [address] [place] [address] Dr. Get Whitten CO2 [Moles/Vol] 21.0 mmol/L Normal 21.0-32.0 [facility] Comment on above: Performed By: #### B REGULATORY LEADER, T7, CMP, TSH #### [facility] [address] [place] [address] Dr. Get Whitten Creatinine [Mass/Vol] 1.07 mg/dL Normal 0.70-1.30 [facility] Comment on above: Performed By: #### B REGULATORY LEADER, T7, CMP, TSH #### [facility] [address] [place] [address] Dr. Get Whitten EGFR-AF BULGARIAN >86 Normal >=60 [facility] Comment on above: Performed By: #### B REGULATORY LEADER, T7, CMP, TSH #### [facility] [address] [place] [address] Dr. Get Whitten EGFR-NON AF BULGARIAN >60 Normal >=60 [facility] Comment on above: Performed By: #### B REGULATORY LEADER, T7, CMP, TSH #### [facility] [address] [place] [address] Dr. Get Whitten Globulin (S) [Mass/Vol] 2.6 g/dL Normal [facility] Comment on above: Performed By: #### B REGULATORY LEADER, T7, CMP, TSH #### [facility] [address] [place] [address] Dr. Get Whitten Glucose [Mass/Vol] 132 mg/dL Critically high 74-106 [facility] Comment on above: Performed By: #### B REGULATORY LEADER, T7, CMP, TSH #### [facility] [address] [place] [address] Dr. Get Whitten Potassium [Moles/Vol] 3.4 mmol/L Critically low 3.5-5.1 [facility] Comment on above: Performed By: #### B REGULATORY LEADER, T7, CMP, TSH #### [facility] [address] [place] [address] Dr. Get Whitten Protein [Mass/Vol] 5.6 g/dL Critically low 6.4-8.2 [facility] Comment on above: Performed By: #### B REGULATORY LEADER, T7, CMP, TSH #### [facility] [address] [place] [address] Dr. Get Whitten Sodium [Moles/Vol] 131 mmol/L Critically low 136-145 [facility] Comment on above: Performed By: #### B REGULATORY LEADER, T7, CMP, TSH #### [facility] [address] [place] [address] Dr. Get Whitten Urea nitrogen [Mass/Vol] 16.0 mg/dL Normal 7.0-18.0 [facility] Comment on above: Performed By: #### B REGULATORY LEADER, T7, CMP, TSH #### [facility] [address] [place] [address] Dr. Get Whitten Urea nitrogen/Creatinine [Mass ratio] 15.0 mg/mg Normal [facility] Comment on above: Performed By: #### B REGULATORY LEADER, T7, CMP, TSH #### [facility] [address] [place] [address] Dr. Get Whitten T3, TOTAL (TRIIODOTHYRONINE) on 03-28-2022 T3, TOTAL <20 Critically low 71-180 [facility] Comment on above: Performed By: #### C MP, HSTROPN, BNP #### [facility] [address] [place] [address] Dr. Get Whitten T4 [facility] 03-28-2022 T4 [Mass/Vol] 0.7 ug/dL Invalid Interpretation Code 4.5-12.0 [facility] Comment on above: Performed By: #### C VDTBH #### [facility] [address] [place] [address] Dr. Get Whitten BNPon 03-27-2022 Natriuretic peptide B (Bld) [Mass/Vol] 340.0 pg/mL Normal <=900.0 [facility] Comment on above: Performed By: #### B REGULATORY LEADER, T7, CMP, TSH #### [facility] [address] [place] [address] Dr. Get Whitten CBC AUTO DIFFon 03-27-2022 BASO # 0.0 103/ul Normal 0.0-0.1 [facility] Comment on above: Performed By: #### C MP, HSTROPN, BNP #### [facility] [address] [place] [address] Dr. Get Whitten Basophils/100 WBC (Bld) 0.1 % Critically low 0.2-2.0 [facility] Comment on above: Performed By: #### C MP, HSTROPN, BNP #### [facility] [address] [place] [address] Dr. Get Whitten EO # 0.0 103/ul Normal 0.0-0.7 [facility] Comment on above: Performed By: #### C MP, HSTROPN, BNP #### [facility] [address] [place] [address] Dr. Get Whitten Eosinophils/100 WBC (Bld) 0.1 % Critically low 0.9-7.0 [facility] Comment on above: Performed By: #### C MP, HSTROPN, BNP #### [facility] [address] [place] [address] Dr. Get Whitten Erythrocyte distribution width (RBC) [Ratio] 12.7 % Normal 11.0-15.0 [facility] Comment on above: Performed By: #### C MP, HSTROPN, BNP #### [facility] [address] [place] [address] Dr. Get Whitten Hematocrit (Bld) [Volume fraction] 38.7 % Critically low 42.0-54.0 [facility] Comment on above: Performed By: #### C MP, HSTROPN, BNP #### [facility] [address] [place] [address] Dr. Get Whitten Hemoglobin (Bld) [Mass/Vol] 13.6 g/dL Critically low 14.0-18.0 [facility] Comment on above: Performed By: #### C MP, HSTROPN, BNP #### [facility] [address] [address] [address] Get Whitten IG # 1.95 10e3/ul Critically high 0.00-0.03 [facility] Comment on above: Performed By: #### C MP, HSTROPN, BNP #### [facility] [address] [place] [address] Dr. Get Whitten IG % 16.0 % Critically high 0.0-0.5 [facility] Comment on above: Performed By: #### C MP, HSTROPN, BNP #### [facility] [address] [place] [address] Dr. Get Whitten LYMPH # 1.7 103/ul Normal 1.2-3.8 [facility] Comment on above: Performed By: #### C MP, HSTROPN, BNP #### [facility] [address] [place] [address] Dr. Get Whitten Lymphocytes/100 WBC (Bld) 13.8 % Critically low 20.5-60.0 [facility] Comment on above: Performed By: #### C MP, HSTROPN, BNP #### [facility] [address] [place] [address] Dr. Get Whitten MANUAL DIFF REQ NO Normal [facility] Comment on above: Performed By: #### C MP, HSTROPN, BNP #### [facility] [address] [place] [address] Dr. Get Whitten MCH (RBC) [Entitic mass] 36.2 pg Critically high 25.9-34.0 [facility] Comment on above: Performed By: #### C MP, HSTROPN, BNP #### [facility] [address] [place] [address] Dr. Get Whitten MCHC (RBC) [Mass/Vol] 35.1 g/dL Normal 29.9-35.2 [facility] Comment on above: Performed By: #### C MP, HSTROPN, BNP #### [facility] [address] [place] [address] Dr. Get Whitten MCV (RBC) [Entitic vol] 102.9 fL Critically high 80.0-94.0 [facility] Comment on above: Performed By: #### C MP, HSTROPN, BNP #### [facility] [address] [place] [address] Dr. Get Whitten MONO # 0.4 103/ul Normal 0.3-0.8 [facility] Comment on above: Performed By: #### C MP, HSTROPN, BNP #### [facility] [address] [place] [address] Dr. Get Whitten Monocytes/100 WBC (Bld) 3.3 % Normal 1.7-12.0 [facility] Comment on above: Performed By: #### C MP, HSTROPN, BNP #### [facility] [address] [place] [address] Dr. Get Whitten NEUT # 8.2 103/ul Critically high 1.4-6.5 [facility] Comment on above: Performed By: #### C MP, HSTROPN, BNP #### [facility] [address] [place] [address] Dr. Get Whitten Neutrophils/100 WBC (Bld) 66.7 % Normal 43.0-75.0 [facility] Comment on above: Performed By: #### C MP, HSTROPN, BNP #### [facility] [address] [place] [address] Dr. Get Whitten Platelet mean volume (Bld) [Entitic vol] 9.2 fL Critically low 9.5-13.5 [facility] Comment on above: Performed By: #### C MP, HSTROPN, BNP #### [facility] [address] [address] [address] Get Whitten PLT 167 103/ul Normal 150-450 [facility] Comment on above: Performed By: #### C MP, HSTROPN, BNP #### [facility] [address] [place] [address] Dr. Get Whitten RBC 3.76 106/ul Critically low 4.70-6.10 [facility] Comment on above: Performed By: #### C MP, HSTROPN, BNP #### [facility] [address] [place] [address] Dr. Get Whitten WBC 12.2 103/ul Critically high 4.0-11.0 [facility] Comment on above: Performed By: #### C MP, HSTROPN, BNP #### [facility] [address] [place] [address] Dr. Get Whitten PROF 14(COMP METB)on 022 Albumin [Mass/Vol] 3.1 g/dL Critically low 3.4-5.0 [facility] Comment on above: Performed By: #### B REGULATORY LEADER, T7, CMP, TSH #### [facility] [address] [place] [address] Dr. Get Whitten Albumin/Globulin [Mass ratio] 1.1 {ratio} Normal [facility] Comment on above: Performed By: #### B REGULATORY LEADER, T7, CMP, TSH #### [facility] [address] [place] [address] Dr. Get Whitten ALP [Catalytic activity/Vol] 44 U/L Critically low 46-116 [facility] Comment on above: Performed By: #### B REGULATORY LEADER, T7, CMP, TSH #### [facility] [address] [place] [address] Dr. Get Whitten ALT [Catalytic activity/Vol] 87 U/L Critically high 16-63 [facility] Comment on above: Performed By: #### B REGULATORY LEADER, T7, CMP, TSH #### [facility] [address] [address] [address] Get Whitten Anion gap [Moles/Vol] 12.6 mmol/L Normal [facility] Comment on above: Performed By: #### B REGULATORY LEADER, T7, CMP, TSH #### [facility] [address] [address] [address] Get Whitten AST [Catalytic activity/Vol] 38 U/L Critically high 15-37 [facility] Comment on above: Performed By: #### B REGULATORY LEADER, T7, CMP, TSH #### [facility] [address] [address] [address] Get Whitten Bilirubin [Mass/Vol] 0.4 mg/dL Normal 0.2-1.0 [facility] Comment on above: Performed By: #### B REGULATORY LEADER, T7, CMP, TSH #### [facility] [address] [address] [address] Get Whitten Calcium [Mass/Vol] 7.7 mg/dL Critically low 8.5-10.1 [facility] Comment on above: Performed By: #### B REGULATORY LEADER, T7, CMP, TSH #### [facility] [address] [address] [address] Get Whitten Chloride [Moles/Vol] 97 mmol/L Critically low 98-107 [facility] Comment on above: Performed By: #### B REGULATORY LEADER, T7, CMP, TSH #### [facility] [address] [address] [address] Get Whitten CO2 [Moles/Vol] 22.1 mmol/L Normal 21.0-32.0 [facility] Comment on above: Performed By: #### B REGULATORY LEADER, T7, CMP, TSH #### [facility] [address] [address] [address] Get Whitten Creatinine [Mass/Vol] 1.17 mg/dL Normal 0.70-1.30 [facility] Comment on above: Performed By: #### B REGULATORY LEADER, T7, CMP, TSH #### [facility] [address] [address] [address] Get Whitten EGFR-AF BULGARIAN >60 Normal >=60 [facility] Comment on above: Performed By: #### B REGULATORY LEADER, T7, CMP, TSH #### [facility] [address] [address] [address] Get Whitten EGFR-NON AF BULGARIAN >60 Normal >=60 [facility] Comment on above: Performed By: #### B REGULATORY LEADER, T7, CMP, TSH #### [facility] [address] [address] [address] Get Whitten Globulin (S) [Mass/Vol] 2.7 g/dL Normal [facility] Comment on above: Performed By: #### B REGULATORY LEADER, T7, CMP, TSH #### [facility] [address] [place] [address] Dr. Get Whitten Glucose [Mass/Vol] 165 mg/dL Critically high 74-106 T [facility] Comment on above: Performed By: #### B REGULATORY LEADER, T7, CMP, TSH #### [facility] [address] [place] [address] Dr. Get Whitten Potassium [Moles/Vol] 3.7 mmol/L Normal 3.5-5.1 [facility] Comment on above: Performed By: #### B REGULATORY LEADER, T7, CMP, TSH #### [facility] [address] [place] [address] Dr. Get Whitten Protein [Mass/Vol] 5.8 g/dL Critically low 6.4-8.2 Th [facility] Comment on above: Performed By: #### B REGULATORY LEADER, T7, CMP, TSH #### [facility] [address] [place] [address] Dr. Get Whitten Sodium [Moles/Vol] 128 mmol/L Critically low 136-145 Th [facility] Comment on above: Performed By: #### B REGULATORY LEADER, T7, CMP, TSH #### [facility] [address] [place] [address] Dr. Get Whitten Urea nitrogen [Mass/Vol] 17.0 mg/dL Normal 7.0-18.0 [facility] Comment on above: Performed By: #### B REGULATORY LEADER, T7, CMP, TSH #### [facility] [address] [place] [address] Dr. Get Whitten Urea nitrogen/Creatinine [Mass ratio] 14.5 mg/mg Normal [facility] Comment on above: Performed By: #### B REGULATORY LEADER, T7, CMP, TSH #### [facility] [address] [place] [address] Dr. Get Whitten SODIUM RANDOM URINEon 2021 Sodium (U) [Moles/Vol] 6 mmol/L Critically low 30-90 [facility] Comment on above: Performed By: #### B REGULATORY LEADER, T7, CMP, TSH #### [facility] [address] [place] [address] Dr. Get Whitten BNPon 03-26-2022 Natriuretic peptide B (Bld) [Mass/Vol] 472.0 pg/mL Normal <=900.0 [facility] Comment on above: Performed By: #### C MP, HSTROPN, BNP #### [facility] [address] [place] [address] Dr. Get Whitten CARDIAC ANA 3-6on 2 CK [Catalytic activity/Vol] 53 U/L Normal 39-308 [facility] Comment on above: Performed By: #### C VDTBH #### [facility] [address] [place] [address] Dr. Get Whitten CK.MB [Mass/Vol] 1.61 ng/mL Normal <=3.60 [facility] Comment on above: Performed By: #### C VDTBH #### [facility] [address] [place] [address] Dr. Get Whitten HSTROP 20.2 pg/mL Normal 4.0-76.1 [facility] Comment on above: Result Comment: CUT- OFF POINTS HAVE BEEN ESTABLISHED BASED ON THE FOURTH UNIVERSAL DEFINITIONS OF MYOCARDIAL INFARCTION. THE UPPER REFERENCE LIMIT (URL) OF TROPONIN, DEFINED THE 99TH PERCENTILE OF cTnI DISTRIBUTION IN A REFERENCE POPULATION, HAS BEEN CONFIRMED THE DECISION THRESHOLD FOR [place] DIAGNOSIS. Performed By: #### C VDTBH #### [facility] [address] [place] [address] Dr. Get Whitten CK [Catalytic activity/Vol] 40 U/L Normal 39-308 [facility] Comment on above: Performed By: #### B REGULATORY LEADER, T7, CMP, TSH #### [facility] [address] [address] [address] Get Whitten CK.MB [Mass/Vol] 1.53 ng/mL Normal <=3.60 [facility] Comment on above: Performed By: #### B REGULATORY LEADER, T7, CMP, TSH #### [facility] [address] [address] [address] Get Whitten HSTROP 23.6 pg/mL Normal 4.0-76.1 [facility] Comment on above: Result Comment: CUT- OFF POINTS HAVE BEEN ESTABLISHED BASED ON THE FOURTH UNIVERSAL DEFINITIONS OF MYOCARDIAL INFARCTION. THE UPPER REFERENCE LIMIT (URL) OF TROPONIN, DEFINED THE 99TH PERCENTILE OF cTnI DISTRIBUTION IN A REFERENCE POPULATION, HAS BEEN CONFIRMED THE DECISION THRESHOLD FOR [place] DIAGNOSIS. Performed By: #### B REGULATORY LEADER, T7, CMP, TSH #### [facility] [address] [place] [address] Dr. Get Whitten CBC W MANUAL DIFFon 03-26-20 22 ATYPICAL LYMPH # Normal [facility] Comment on above: Performed By: #### C MP, HSTROPN, BNP #### [facility] [address] [place] [address] Dr. Get Whitten ATYPICAL LYMPH % Normal [facility] Comment on above: Performed By: #### C MP, HSTROPN, BNP #### [facility] [address] [place] [address] Dr. Get Whitten BAND # 0.5 103/ul Critically high 0.0-0.3 [facility] Comment on above: Performed By: #### C MP, HSTROPN, BNP #### [facility] [address] [place] [address] Dr. Get Whitten BAND % 4 % Normal 0-5 [facility] Comment on above: Performed By: #### C MP, HSTROPN, BNP #### [facility] [address] [place] [address] Dr. Get Whitten BASOM # 0.00 103/ul Normal 0.00-0.10 [facility] Comment on above: Performed By: #### C MP, HSTROPN, BNP #### [facility] [address] [place] [address] Dr. Get Whitten BASOM % 0.0 % Critically low 0.2-2.0 [facility] Comment on above: Performed By: #### C MP, HSTROPN, BNP #### [facility] [address] [place] [address] Dr. Get Whitten BLAST # Normal [facility] Comment on above: Performed By: #### C MP, HSTROPN, BNP #### [facility] [address] [place] [address] Dr. Get Whitten BLAST % Normal [facility] Comment on above: Performed By: #### C MP, HSTROPN, BNP #### [facility] [address] [place] [address] Dr. Get Whitten CORRECTED WBC Normal 4.0-11.0 [facility] Comment on above: Performed By: #### C MP, HSTROPN, BNP #### [facility] [address] [place] [address] Dr. Get Whitten EOS # 0.00 103/ul Normal 0.00-0.70 [facility] Comment on above: Performed By: #### C MP, HSTROPN, BNP #### [facility] [address] [place] [address] Dr. Get Whitten EOS% 0.0 % Critically low 0.9-7.0 [facility] Comment on above: Performed By: #### C MP, HSTROPN, BNP #### [facility] [address] [place] [address] Dr. Get Whitten HCT 44.0 % Normal 42.0-54.0 [facility] Comment on above: Performed By: #### C MP, HSTROPN, BNP #### [facility] [address] [place] [address] Dr. Get Whitten HGB 15.8 g/dl Normal 14.0-18.0 [facility] Comment on above: Performed By: #### C MP, HSTROPN, BNP #### [facility] [address] [place] [address] Dr. Get Whitten HYPERSEG NEUT 2+ Normal [facility] Comment on above: Performed By: #### C MP, HSTROPN, BNP #### [facility] [address] [address] [address] Get Whitten LYMPHM # 1.56 103/ul Normal 1.20-3.80 [facility] Comment on above: Performed By: #### C MP, HSTROPN, BNP #### [facility] [address] [place] [address] Dr. Get Whitten LYMPHM% 13.0 % Critically low 20.5-60.0 [facility] Comment on above: Performed By: #### C MP, HSTROPN, BNP #### [facility] [address] [place] [address] Dr. Get Whitten MCH 36.2 pg Critically high 25.9-34.0 [facility] Comment on above: Performed By: #### C MP, HSTROPN, BNP #### [facility] [address] [place] [address] Dr. Get Whitten MCHC 35.9 g/dl Critically high 29.9-35.2 [facility] Comment on above: Performed By: #### C MP, HSTROPN, BNP #### [facility] [address] [place] [address] Dr. Get Whitten MCV 100.7 fL Critically high 80.0-94.0 [facility] Comment on above: Performed By: #### C MP, HSTROPN, BNP #### [facility] [address] [place] [address] Dr. Get Whitten METAMYELOCYTE # Normal [facility] Comment on above: Performed By: #### C MP, HSTROPN, BNP #### [facility] [address] [place] [address] Dr. Get Whitten METAMYELOCYTE % Normal [facility] Comment on above: Performed By: #### C MP, HSTROPN, BNP #### [facility] [address] [place] [address] Dr. Get Whitten MONOM# 1.08 103/ul Critically high 0.30-0.80 [facility] Comment on above: Performed By: #### C MP, HSTROPN, BNP #### [facility] [address] [place] [address] Dr. Get Whitten MONOM% 9.0 % Normal 1.7-12.0 [facility] Comment on above: Performed By: #### C MP, HSTROPN, BNP #### [facility] [address] [place] [address] Dr. Get Whitten MPV 10.3 fL Normal 9.5-13.5 [facility] Comment on above: Performed By: #### C MP, HSTROPN, BNP #### [facility] [address] [place] [address] Dr. Get Whitten MYELOCYTE # Normal [facility] Comment on above: Performed By: #### C MP, HSTROPN, BNP #### [facility] [address] [place] [address] Dr. Get Whitten MYELOCYTE % Normal [facility] Comment on above: Performed By: #### C MP, HSTROPN, BNP #### [facility] [address] [place] [address] Dr. Get Whitten NRBC Normal [facility] Comment on above: Performed By: #### C MP, HSTROPN, BNP #### [facility] [address] [place] [address] Dr. Get Whitten PLT 111 103/ul Critically low 150-450 [facility] Comment on above: Performed By: #### C MP, HSTROPN, BNP #### [facility] [address] [place] [address] Dr. Get Whitten RBC 4.37 106/ul Critically low 4.70-6.10 [facility] Comment on above: Performed By: #### C MP, HSTROPN, BNP #### [facility] [address] [place] [address] Dr. Get Whitten RDW 12.4 % Normal 11.0-15.0 [facility] Comment on above: Performed By: #### C MP, HSTROPN, BNP #### [facility] [address] [place] [address] Dr. Get Whitten SEG # 8.88 103/ul Critically high 1.40-6.50 [facility] Comment on above: Performed By: #### C MP, HSTROPN, BNP #### [facility] [address] [place] [address] Dr. Get Whitten SEG % 74.0 % Normal 43.0-75.0 [facility] Comment on above: Performed By: #### C MP, HSTROPN, BNP #### [facility] [address] [place] [address] Dr. Get Whitten WBC 12.0 103/ul Critically high 4.0-11.0 [facility] Comment on above: Performed By: #### C MP, HSTROPN, BNP #### [facility] [address] [place] [address] Dr. Get Whitten CRPon 03-26-2022 CRP [Mass/Vol] mg/L Normal <=1.0 [facility] Comment on above: Performed By: #### C MP, HSTROPN, BNP #### [facility] [address] [place] [address] Dr. Get Whitten Covid-19 PCR (CVDTBH)on 03-16 SARS-CoV-2 (COVID-19) RNA ASHLEE+probe Ql (Unsp spec) Detected Critically abnormal NOT DETECTED [facility] Comment on above: Result Comment: This test is not yet approved or cleared by the [place] FDA. When there are no FDA-approved or cleared tests available, and other criteria are met, FDA can make tests available under an emergency access mechanism called an Emergency Use Authorization (EUA). The EUA for this test is supported by the [place] of Health and Human Service's declaration that [...] used). Performed By: #### C VDTBH #### [facility] [address] [place] [address] Dr. Get Whitten LACTATE/LACTIC ACIDon 2021 Lactate [Moles/Vol] 0.4 mmol/L Normal 0.4-1.9 [facility] Comment on above: Performed By: #### C MP, HSTROPN, BNP #### [facility] [address] [place] [address] Dr. Get Whitten NAon 03-26-2022 Sodium [Moles/Vol] 126 mmol/L Critically low 136-145 [facility] Comment on above: Performed By: #### B REGULATORY LEADER, T7, CMP, TSH #### [facility] [address] [place] [address] Dr. Get Whitten PROF 14(COMP METB)on 022 Albumin [Mass/Vol] 3.6 g/dL Normal 3.4-5.0 [facility] Comment on above: Performed By: #### C MP, HSTROPN, BNP #### [facility] [address] [place] [address] Dr. Get Whitten Albumin/Globulin [Mass ratio] 1.0 {ratio} Normal [facility] Comment on above: Performed By: #### C MP, HSTROPN, BNP #### [facility] [address] [place] [address] Dr. Get Whitten ALP [Catalytic activity/Vol] 49 U/L Normal 46-116 [facility] Comment on above: Performed By: #### C MP, HSTROPN, BNP #### [facility] [address] [place] [address] Dr. Get Whitten ALT [Catalytic activity/Vol] 80 U/L Critically high 16-63 [facility] Comment on above: Performed By: #### C MP, HSTROPN, BNP #### [facility] [address] [place] [address] Dr. Get Whitten Anion gap [Moles/Vol] 16.2 mmol/L Normal [facility] Comment on above: Performed By: #### C MP, HSTROPN, BNP #### [facility] [address] [place] [address] Dr. Get Whitten AST [Catalytic activity/Vol] 42 U/L Critically high 15-37 [facility] Comment on above: Performed By: #### C MP, HSTROPN, BNP #### [facility] [address] [place] [address] Dr. Get Whitten Bilirubin [Mass/Vol] 0.7 mg/dL Normal 0.2-1.0 [facility] Comment on above: Performed By: #### C MP, HSTROPN, BNP #### [facility] [address] [place] [address] Dr. Get Whitten Calcium [Mass/Vol] 8.4 mg/dL Critically low 8.5-10.1 [facility] Comment on above: Performed By: #### C MP HSTROPN, BNP #### [facility] [address] [place] [address] Dr. Get Whitten Chloride [Moles/Vol] 91 mmol/L Critically low 98-107 [facility] Comment on above: Performed By: #### C MP, HSTROPN, BNP #### [facility] [address] [place] [address] Dr. Get Whitten CO2 [Moles/Vol] 19.8 mmol/L Critically low 21.0-32.0 [facility] Comment on above: Performed By: #### C MP, HSTROPN, BNP #### [facility] [address] [place] [address] Dr. Get Whitten Creatinine [Mass/Vol] 1.11 mg/dL Normal 0.70-1.30 [facility] Comment on above: Performed By: #### C MP, HSTROPN, BNP #### [facility] [address] [place] [address] Dr. Get Whitten EGFR-AF BULGARIAN >60 Normal >=60 [facility] Comment on above: Performed By: #### C MP, HSTROPN, BNP #### [facility] [address] [place] [address] Dr. Get Whitten EGFR-NON AF BULGARIAN >60 Normal >=60 [facility] Comment on above: Performed By: #### C MP, HSTROPN, BNP #### [facility] [address] [place] [address] Dr. Get Whitten Globulin (S) [Mass/Vol] 3.6 g/dL Normal [facility] Comment on above: Performed By: #### C MP, HSTROPN, BNP #### [facility] [address] [place] [address] Dr. Get Whitten Glucose [Mass/Vol] 109 mg/dL Critically high 74-106 [facility] Comment on above: Performed By: #### C MP, HSTROPN, BNP #### [facility] [address] [place] [address] Dr. Get Whitten Potassium [Moles/Vol] 4.0 mmol/L Normal 3.5-5.1 [facility] Comment on above: Performed By: #### C MP, HSTROPN, BNP #### [facility] [address] [place] [address] Dr. Get Whitten Protein [Mass/Vol] 7.2 g/dL Normal 6.4-8.2 [facility] Comment on above: Performed By: #### C MP, HSTROPN, BNP #### [facility] [address] [place] [address] Dr. Get Whitten Sodium [Moles/Vol] 123 mmol/L Critically low 136-145 [facility] Comment on above: Performed By: #### C MP, HSTROPN, BNP #### [facility] [address] [place] [address] Dr. Get Whitten Urea nitrogen [Mass/Vol] 15.0 mg/dL Normal 7.0-18.0 [facility] Comment on above: Performed By: #### C THAD BUTT, BNP #### [facility] [address] [address] [address] Get Whitten Urea nitrogen/Creatinine [Mass ratio] 13.5 mg/mg Normal [facility] Comment on above: Performed By: #### C BRITTANY BUTTN, BNP #### [facility] [address] [address] [address] Get Whitten SPUTUM GRAM STAINon 03-26-20 22 COMMENTS NO ORGANISMS OBSERVED Normal [facility] Comment on above: Performed By: #### C VDTBH #### [facility] [address] [place] [address] Dr. Get Whitten DIPHTHEROIDS Normal [facility] Comment on above: Performed By: #### C VDTBH #### [facility] [address] [address] [address] Get Whitten EPITHELIALS <25 Normal [facility] Comment on above: Performed By: #### C VDTBH #### [facility] [address] [address] [address] Get Whitten FUNGAL ELEMENTS Normal [facility] Comment on above: Performed By: #### C VDTBH #### [facility] [address] [place] [address] Dr. Get Whitten GRAM NEG BACILLI Normal [facility] Comment on above: Performed By: #### C VDTBH #### [facility] [address] [place] [address] Dr. Get WATSON NEG DIPPLOCOCCI Normal [facility] Comment on above: Performed By: #### C VDTBH #### [facility] [address] [address] [address] Get Whitten GRAM POS BACILLI Normal [facility] Comment on above: Performed By: #### C VDTBH #### [facility] [address] [address] [address] Get Whitten GRAM POSITIVE COCCI Normal [facility] Comment on above: Performed By: #### C VDTBH #### [facility] [address] [address] [address] Get Whitten WBC (Bld) [#/Vol] 10*3/uL Normal [facility] Comment on above: Performed By: #### C VDTBH #### [facility] [address] [place] [address] Dr. Get Whitten TROPONIN, HIGH SENSITIVITYon 03-26-2022 HSTROP 19.8 pg/mL Normal 4.0-76.1 [facility] Comment on above: Result Comment: CUT- OFF POINTS HAVE BEEN ESTABLISHED BASED ON THE FOURTH UNIVERSAL DEFINITIONS OF MYOCARDIAL INFARCTION. THE UPPER REFERENCE LIMIT (URL) OF TROPONIN, DEFINED THE 99TH PERCENTILE OF cTnI DISTRIBUTION IN A REFERENCE POPULATION, HAS BEEN CONFIRMED THE DECISION THRESHOLD FOR [place] DIAGNOSIS. Performed By: #### C MP, HSTROPN, BNP #### [facility] [address] [place] [address] Dr. Get Whitten TSHon 03-26-2022 TSH 51.305 uIU/mL Critically high 0.358-3.740 [facility] Comment on above: Performed By: #### C MP, HSTROPN, BNP #### [facility] [address] [place] [address] Dr. Get Whitten XR CHEST 1 Von 03-26-2022 XR CHEST 1 V EXAM: XR CHEST 1 V HISTORY: COUGH COMPARISON: Chest x-ray 03/23/2022 TECHNIQUE: Single frontal view chest x-ray FINDINGS: No lobar consolidation, large pleural effusions, pneumothorax, or acute bony abnormality. Cardiac size is unremarkable. IMPRESSION: No radiographic evidence for acute chest abnormality. Electronically authenticated by: JANKI STEEL Date: 2022-03-26 04:14 Normal [facility] BNPon 03-23-2022 Natriuretic peptide B (Bld) [Mass/Vol] 385.0 pg/mL Normal <=900.0 [facility] Comment on above: Performed By: #### C MP, HSTROPN, BNP #### [facility] [address] [place] [address] Dr. Get Whitten CBC W MANUAL DIFFon 03-23-20 22 ATYPICAL LYMPH # Normal [facility] Comment on above: Performed By: #### B REGULATORY LEADER, T7, CMP, TSH #### [facility] [address] [place] [address] Dr. Get Whitten ATYPICAL LYMPH % Normal [facility] Comment on above: Performed By: #### B REGULATORY LEADER, T7, CMP, TSH #### [facility] [address] [place] [address] Dr. Get Whitten BAND # 0.2 103/ul Normal 0.0-0.3 [facility] Comment on above: Performed By: #### B REGULATORY LEADER, T7, CMP, TSH #### [facility] [address] [place] [address] Dr. Get Whitten BAND % 2 % Normal 0-5 [facility] Comment on above: Performed By: #### B REGULATORY LEADER, T7, CMP, TSH #### [facility] [address] [place] [address] Dr. Get Whitten BASOM # 0.00 103/ul Normal 0.00-0.10 [facility] Comment on above: Performed By: #### B REGULATORY LEADER, T7, CMP, TSH #### [facility] [address] [place] [address] Dr. Get Whitten BASOM % 0.0 % Critically low 0.2-2.0 [facility] Comment on above: Performed By: #### B REGULATORY LEADER, T7, CMP, TSH #### [facility] [address] [place] [address] Dr. Get Whitten BLAST # Normal [facility] Comment on above: Performed By: #### B REGULATORY LEADER, T7, CMP, TSH #### [facility] [address] [place] [address] Dr. Get Whitten BLAST % Normal [facility] Comment on above: Performed By: #### B REGULATORY LEADER, T7, CMP, TSH #### [facility] [address] [place] [address] Dr. Get Whitten CORRECTED WBC Normal 4.0-11.0 [facility] Comment on above: Performed By: #### B REGULATORY LEADER, T7, CMP, TSH #### [facility] [address] [address] [address] Get Whitten EOS # 0.00 103/ul Normal 0.00-0.70 [facility] Comment on above: Performed By: #### B REGULATORY LEADER, T7, CMP, TSH #### [facility] [address] [place] [address] Dr. Get Whitten EOS% 0.0 % Critically low 0.9-7.0 [facility] Comment on above: Performed By: #### B REGULATORY LEADER, T7, CMP, TSH #### [facility] [address] [place] [address] Dr. Get Whitten HCT 45.6 % Normal 42.0-54.0 [facility] Comment on above: Performed By: #### B REGULATORY LEADER, T7, CMP, TSH #### [facility] [address] [place] [address] Dr. Get Whitten HGB 16.3 g/dl Normal 14.0-18.0 [facility] Comment on above: Performed By: #### B REGULATORY LEADER, T7, CMP, TSH #### [facility] [address] [place] [address] Dr. Get Whitten LYMPHM # 0.89 103/ul Critically low 1.20-3.80 [facility] Comment on above: Performed By: #### B REGULATORY LEADER, T7, CMP, TSH #### [facility] [address] [place] [address] Dr. Get Whitten LYMPHM% 9.0 % Critically low 20.5-60.0 [facility] Comment on above: Performed By: #### B REGULATORY LEADER, T7, CMP, TSH #### [facility] [address] [place] [address] Dr. Get Whitten MCH 36.5 pg Critically high 25.9-34.0 [facility] Comment on above: Performed By: #### B REGULATORY LEADER, T7, CMP, TSH #### [facility] [address] [place] [address] Dr. Get Whitten MCHC 35.7 g/dl Critically high 29.9-35.2 [facility] Comment on above: Performed By: #### B REGULATORY LEADER, T7, CMP, TSH #### [facility] [address] [place] [address] Dr. Get Whitten MCV 102.0 fL Critically high 80.0-94.0 [facility] Comment on above: Performed By: #### B REGULATORY LEADER, T7, CMP, TSH #### [facility] [address] [place] [address] Dr. Get Whitten METAMYELOCYTE # Normal [facility] Comment on above: Performed By: #### B REGULATORY LEADER, T7, CMP, TSH #### [facility] [address] [place] [address] Dr. Get Whitten METAMYELOCYTE % Normal [facility] Comment on above: Performed By: #### B REGULATORY LEADER, T7, CMP, TSH #### [facility] [address] [place] [address] Dr. Get Whitten MONOM# 0.89 103/ul Critically high 0.30-0.80 [facility] Comment on above: Performed By: #### B REGULATORY LEADER, T7, CMP, TSH #### [facility] [address] [place] [address] Dr. Get Whitten MONOM% 9.0 % Normal 1.7-12.0 [facility] Comment on above: Performed By: #### B REGULATORY LEADER, T7, CMP, TSH #### [facility] [address] [place] [address] Dr. Get Whitten MPV 8.8 fL Critically low 9.5-13.5 [facility] Comment on above: Performed By: #### B REGULATORY LEADER, T7, CMP, TSH #### [facility] [address] [place] [address] Dr. Get Whitten MYELOCYTE # Normal [facility] Comment on above: Performed By: #### B REGULATORY LEADER, T7, CMP, TSH #### [facility] [address] [place] [address] Dr. Get Whitten MYELOCYTE % Normal [facility] Comment on above: Performed By: #### B REGULATORY LEADER, T7, CMP, TSH #### [facility] [address] [address] [address] Get Whitten NRBC Normal [facility] Comment on above: Performed By: #### B REGULATORY LEADER, T7, CMP, TSH #### [facility] [address] [address] [address] Get Whitten PLT 156 103/ul Normal 150-450 [facility] Comment on above: Performed By: #### B REGULATORY LEADER, T7, CMP, TSH #### [facility] [address] [address] [address] Get Whitten RBC 4.47 106/ul Critically low 4.70-6.10 [facility] Comment on above: Performed By: #### B REGULATORY LEADER, T7, CMP, TSH #### [facility] [address] [address] [address] Get Whitten RDW 12.4 % Normal 11.0-15.0 [facility] Comment on above: Performed By: #### B REGULATORY LEADER, T7, CMP, TSH #### [facility] [address] [address] [address] Get Whitten SEG # 7.92 103/ul Critically high 1.40-6.50 [facility] Comment on above: Performed By: #### B REGULATORY LEADER, T7, CMP, TSH #### [facility] [address] [address] [address] Get Whitten SEG % 80.0 % Critically high 43.0-75.0 [facility] Comment on above: Performed By: #### B REGULATORY LEADER, T7, CMP, TSH #### [facility] [address] [address] [address] Get Whitten WBC 9.9 103/ul Normal 4.0-11.0 [facility] Comment on above: Performed By: #### B REGULATORY LEADER, T7, CMP, TSH #### [facility] [address] [address] [address] Get Whitten PROF 14(COMP METB)on 022 Albumin [Mass/Vol] 3.9 g/dL Normal 3.4-5.0 [facility] Comment on above: Performed By: #### C MP, HSTROPN, BNP #### [facility] [address] [place] [address] Dr. Get Whitten Albumin/Globulin [Mass ratio] 1.1 {ratio} Normal [facility] Comment on above: Performed By: #### C MP, HSTROPN, BNP #### [facility] [address] [place] [address] Dr. Get Whitten ALP [Catalytic activity/Vol] 55 U/L Normal 46-116 [facility] Comment on above: Performed By: #### C MP, HSTROPN, BNP #### [facility] [address] [place] [address] Dr. Get Whitten ALT [Catalytic activity/Vol] 67 U/L Critically high 16-63 [facility] Comment on above: Performed By: #### C MP, HSTROPN, BNP #### [facility] [address] [place] [address] Dr. Get Whitten Anion gap [Moles/Vol] 13.2 mmol/L Normal [facility] Comment on above: Performed By: #### C MP, HSTROPN, BNP #### [facility] [address] [place] [address] Dr. Get Whitten AST [Catalytic activity/Vol] 20 U/L Normal 15-37 [facility] Comment on above: Performed By: #### C MP, HSTROPN, BNP #### [facility] [address] [place] [address] Dr. Get Whitten Bilirubin [Mass/Vol] 0.4 mg/dL Normal 0.2-1.0 [facility] Comment on above: Performed By: #### C MP, HSTROPN, BNP #### [facility] [address] [place] [address] Dr. Get Whitten Calcium [Mass/Vol] 8.5 mg/dL Normal 8.5-10.1 [facility] Comment on above: Performed By: #### C MP, HSTROPN, BNP #### [facility] [address] [address] [address] Get Whitten Chloride [Moles/Vol] 93 mmol/L Critically low 98-107 [facility] Comment on above: Performed By: #### C MP, HSTROPN, BNP #### [facility] [address] [address] [address] Get Whitten CO2 [Moles/Vol] 22.6 mmol/L Normal 21.0-32.0 [facility] Comment on above: Performed By: #### C MP, HSTROPN, BNP #### [facility] [address] [address] [address] Get Whitten Creatinine [Mass/Vol] 1.26 mg/dL Normal 0.70-1.30 [facility] Comment on above: Performed By: #### C MP, HSTROPN, BNP #### [facility] [facility] [address] [place] [address] Dr. Get Whitten EGFR-AF BULGARIAN >60 Normal >=60 [facility] Comment on above: Performed By: #### C MP, HSTROPN, BNP #### [facility] [address] [address] [address] Get Whitten EGFR-NON AF BULGARIAN 59 mL/min/1.73m2 Critically low >=60 [facility] Comment on above: Performed By: #### C MP, HSTROPN, BNP #### [facility] [address] [address] [address] Get Whitten Globulin (S) [Mass/Vol] 3.5 g/dL Normal [facility] Comment on above: Performed By: #### C MP, HSTROPN, BNP #### [facility] [address] [address] [address] Get Whitten Glucose [Mass/Vol] 144 mg/dL Critically high 74-106 T [facility] Comment on above: Performed By: #### C MP, HSTROPN, BNP #### [facility] [address] [address] [address] Get Whitten Potassium [Moles/Vol] 3.9 mmol/L Normal 3.5-5.1 [facility] Comment on above: Performed By: #### C MP, HSTROPN, BNP #### [facility] [address] [place] [address] Dr. Get Whitten Protein [Mass/Vol] 7.4 g/dL Normal 6.4-8.2 [facility] Comment on above: Performed By: #### C MP, HSTROPN, BNP #### [facility] [address] [address] [address] Get Whitten Sodium [Moles/Vol] 125 mmol/L Critically low 136-145 Th [facility] Comment on above: Performed By: #### C MP, HSTROPN, BNP #### [facility] [address] [place] [address] Dr. Get Whitten Urea nitrogen [Mass/Vol] 14.0 mg/dL Normal 7.0-18.0 [facility] Comment on above: Performed By: #### C MP, HSTROPN, BNP #### [facility] [address] [place] [address] Dr. Get Whitten Urea nitrogen/Creatinine [Mass ratio] 11.1 mg/mg Normal [facility] Comment on above: Performed By: #### C MP, HSTROPN, BNP #### [facility] [address] [place] [address] Dr. Get Whitten TROPONIN, HIGH SENSITIVITYon 03-23-2022 HSTROP 6.6 pg/mL Normal 4.0-76.1 [facility] Comment on above: Result Comment: CUT- OFF POINTS HAVE BEEN ESTABLISHED BASED ON THE FOURTH UNIVERSAL DEFINITIONS OF MYOCARDIAL INFARCTION. THE UPPER REFERENCE LIMIT (URL) OF TROPONIN, DEFINED THE 99TH PERCENTILE OF cTnI DISTRIBUTION IN A REFERENCE POPULATION, HAS BEEN CONFIRMED THE DECISION THRESHOLD FOR [place] DIAGNOSIS. Performed By: #### C MP, HSTROPN, BNP #### [facility] [address] [place] [address] Dr. Get Whitten XR CHEST 1 Von [...] SHEN SOSA Date: 2022-03-23 15:02 Normal [facility] Covid-19 PCR ([facility])on SARS-CoV-2 (COVID-19) RNA ASHLEE+probe Ql (Unsp spec) Detected Critically abnormal NOT DETECTED The [facility] Comment on above: Result Comment: This test is not yet approved or cleared by the [place] FDA. When there are no FDA-approved or cleared tests available, and other criteria are met, FDA can make tests available under an emergency access mechanism called an Emergency Use Authorization (EUA). The EUA for this test is supported by the [place] of Health and Human Service's declaration that [...] By: #### C MP, HSTROPN, BNP #### [facility] [address] [place] [address] Dr. Get Whitten CBC AUTO DIFFon 01-24-2022 BASO # 0.1 103/ul Normal 0.0-0.1 [facility] Comment on above: Performed By: #### B REGULATORY LEADER, T7, CMP, TSH #### [facility] [address] [place] [address] Dr. Get Whitten Basophils/100 WBC (Bld) 0.6 % Normal 0.2-2.0 [facility] Comment on above: Performed By: #### B REGULATORY LEADER, T7, CMP, TSH #### [facility] [address] [place] [address] Dr. Get Whitten EO # 0.0 103/ul Normal 0.0-0.7 [facility] Comment on above: Performed By: #### B REGULATORY LEADER, T7, CMP, TSH #### [facility] [address] [place] [address] Dr. Get Whitten Eosinophils/100 WBC (Bld) 0.1 % Critically low 0.9-7.0 [facility] Comment on above: Performed By: #### B REGULATORY LEADER, T7, CMP, TSH #### [facility] [address] [place] [address] Dr. Get Whitten Erythrocyte distribution width (RBC) [Ratio] 13.1 % Normal 11.0-15.0 [facility] Comment on above: Performed By: #### B REGULATORY LEADER, T7, CMP, TSH #### [facility] [address] [place] [address] Dr. Get Whitten Hematocrit (Bld) [Volume fraction] 41.0 % Critically low 42.0-54.0 [facility] Comment on above: Performed By: #### B REGULATORY LEADER, T7, CMP, TSH #### [facility] [address] [place] [address] Dr. Get Whitten Hemoglobin (Bld) [Mass/Vol] 14.3 g/dL Normal 14.0-18.0 [facility] Comment on above: Performed By: #### B REGULATORY LEADER, T7, CMP, TSH #### [facility] [address] [place] [address] Dr. Get Whitten IG # 0.25 10e3/ul Critically high 0.00-0.03 [facility] Comment on above: Performed By: #### B REGULATORY LEADER, T7, CMP, TSH #### [facility] [address] [place] [address] Dr. Get Whitten IG % 2.3 % Critically high 0.0-0.5 [facility] Comment on above: Performed By: #### B REGULATORY LEADER, T7, CMP, TSH #### [facility] [address] [place] [address] Dr. Get Whitten LYMPH # 2.4 103/ul Normal 1.2-3.8 [facility] Comment on above: Performed By: #### B REGULATORY LEADER, T7, CMP, TSH #### [facility] [address] [address] [address] Get Whitten Lymphocytes/100 WBC (Bld) 21.7 % Normal 20.5-60.0 [facility] Comment on above: Performed By: #### B REGULATORY LEADER, T7, CMP, TSH #### [facility] [address] [place] [address] Dr. Get Whitten MANUAL DIFF REQ NO Normal [facility] Comment on above: Performed By: #### B REGULATORY LEADER, T7, CMP, TSH #### [facility] [address] [place] [address] Dr. Get Whitten MCH (RBC) [Entitic mass] 37.0 pg Critically high 25.9-34.0 [facility] Comment on above: Performed By: #### B REGULATORY LEADER, T7, CMP, TSH #### [facility] [address] [place] [address] Dr. Get Whitten MCHC (RBC) [Mass/Vol] 34.9 g/dL Normal 29.9-35.2 [facility] Comment on above: Performed By: #### B REGULATORY LEADER, T7, CMP, TSH #### [facility] [address] [place] [address] Dr. Get Whitten MCV (RBC) [Entitic vol] 105.9 fL Critically high 80.0-94.0 [facility] Comment on above: Result Comment: 1+ m acrocytosis Performed By: #### B REGULATORY LEADER, T7, CMP, TSH #### [facility] [address] [place] [address] Dr. Get Whitten MONO # 0.8 103/ul Normal 0.3-0.8 [facility] Comment on above: Performed By: #### B REGULATORY LEADER, T7, CMP, TSH #### [facility] [address] [place] [address] Dr. Get Whitten Monocytes/100 WBC (Bld) 7.0 % Normal 1.7-12.0 [facility] Comment on above: Performed By: #### B REGULATORY LEADER, T7, CMP, TSH #### [facility] [address] [place] [address] Dr. Get Wihtten NEUT # 7.5 103/ul Critically high 1.4-6.5 [facility] Comment on above: Performed By: #### B REGULATORY LEADER, T7, CMP, TSH #### [facility] [address] [place] [address] Dr. Get Whitten Neutrophils/100 WBC (Bld) 68.3 % Normal 43.0-75.0 [facility] Comment on above: Performed By: #### B REGULATORY LEADER, T7, CMP, TSH #### [facility] [address] [place] [address] Dr. Get Whitten Platelet mean volume (Bld) [Entitic vol] 8.6 fL Critically low 9.5-13.5 [facility] Comment on above: Performed By: #### B REGULATORY LEADER, T7, CMP, TSH #### [facility] [address] [place] [address] Dr. Get Whitten PLT 235 103/ul Normal 150-450 [facility] Comment on above: Performed By: #### B REGULATORY LEADER, T7, CMP, TSH #### [facility] [address] [place] [address] Dr. Get Whitten RBC 3.87 106/ul Critically low 4.70-6.10 [facility] Comment on above: Performed By: #### B REGULATORY LEADER, T7, CMP, TSH #### [facility] [address] [place] [address] Dr. Get Whitten WBC 11.0 103/ul Normal 4.0-11.0 [facility] Comment on above: Performed By: #### B REGULATORY LEADER, T7, CMP, TSH #### [facility] [address] [place] [address] Dr. Get Whitten POINT OF CARE GLUCOSEon 01-13 Glucose [Mass/Vol] 116 mg/dL Critically high 74-106 T [facility] Comment on above: Performed By: #### C MP #### [facility] [address] [place] [address] Dr. Get Whitten PROF CHEM 8 (BAS METB)on Anion gap [Moles/Vol] 14.2 mmol/L Normal [facility] Comment on above: Performed By: #### B REGULATORY LEADER, T7, CMP, TSH #### [facility] [address] [place] [address] Dr. Get Whitten Calcium [Mass/Vol] 8.7 mg/dL Normal 8.5-10.1 [facility] Comment on above: Performed By: #### B REGULATORY LEADER, T7, CMP, TSH #### [facility] [address] [place] [address] Dr. Get Whitten Chloride [Moles/Vol] 99 mmol/L Normal 98-107 [facility] Comment on above: Performed By: #### B REGULATORY LEADER, T7, CMP, TSH #### [facility] [address] [place] [address] Dr. Get Whitten CO2 [Moles/Vol] 25.1 mmol/L Normal 21.0-32.0 [facility] Comment on above: Performed By: #### B REGULATORY LEADER, T7, CMP, TSH #### [facility] [address] [place] [address] Dr. Get Whitten Creatinine [Mass/Vol] 1.24 mg/dL Normal 0.70-1.30 [facility] Comment on above: Performed By: #### B REGULATORY LEADER, T7, CMP, TSH #### [facility] [address] [place] [address] Dr. Get Whitten EGFR-AF BULGARIAN >60 Normal >=60 [facility] Comment on above: Performed By: #### B REGULATORY LEADER, T7, CMP, TSH #### [facility] [address] [place] [address] Dr. Get Whitten EGFR-NON AF BULGARIAN =60 Normal >=60 [facility] Comment on above: Performed By: #### B REGULATORY LEADER, T7, CMP, TSH #### [facility] [address] [place] [address] Dr. Get Whitten Glucose [Mass/Vol] 122 mg/dL Critically high 74-106 T [facility] Comment on above: Performed By: #### B REGULATORY LEADER, T7, CMP, TSH #### [facility] [address] [address] [address] Get Whitten Potassium [Moles/Vol] 4.3 mmol/L Normal 3.5-5.1 [facility] Comment on above: Performed By: #### B REGULATORY LEADER, T7, CMP, TSH #### [facility] [address] [address] [address] Get Whitten Sodium [Moles/Vol] 134 mmol/L Critically low 136-145 Th e [facility] Comment on above: Performed By: #### B REGULATORY LEADER, T7, CMP, TSH #### [facility] [address] [place] [address] Dr. Get Whitten Urea nitrogen [Mass/Vol] 7.0 mg/dL Normal 7.0-18.0 [facility] Comment on above: Performed By: #### B REGULATORY LEADER, T7, CMP, TSH #### [facility] [address] [address] [address] Get Whitten Urea nitrogen/Creatinine [Mass ratio] 5.6 mg/mg Normal [facility] Comment on above: Performed By: #### B REGULATORY LEADER, T7, CMP, TSH #### [facility] [address] [place] [address] Dr. Get Whitten TROPONIN, HIGH SENSITIVITYon 01-24-2022 HSTROP 5.1 pg/mL Normal 4.0-76.1 [facility] Comment on above: Result Comment: CUT- OFF POINTS HAVE BEEN ESTABLISHED BASED ON THE FOURTH UNIVERSAL DEFINITIONS OF MYOCARDIAL INFARCTION. THE UPPER REFERENCE LIMIT (URL) OF TROPONIN, DEFINED THE 99TH PERCENTILE OF cTnI DISTRIBUTION IN A REFERENCE POPULATION, HAS BEEN CONFIRMED THE DECISION THRESHOLD FOR [place] DIAGNOSIS. Performed By: #### B REGULATORY LEADER, T7, CMP, TSH #### [facility] [address] [place] [address] Dr. Get Whitten XR CHEST 1 Von [...] CESAR PARKER Date: 2022-01-24 11:31 Normal [facility] BNPon 01-09-2022 Natriuretic peptide B (Bld) [Mass/Vol] 83.0 pg/mL Normal <=900.0 [facility] Comment on above: Performed By: #### C MP, HSTROPN, BNP #### [facility] [address] [place] [address] Dr. Get Whitten CBC AUTO DIFFon 01-09-2022 BASO # 0.0 103/ul Normal 0.0-0.1 [facility] Comment on above: Performed By: #### C MP #### [facility] [address] [place] [address] Dr. Get Whitten Basophils/100 WBC (Bld) 0.4 % Normal 0.2-2.0 [facility] Comment on above: Performed By: #### C MP #### [facility] [address] [place] [address] Dr. Get Whitten EO # 0.0 103/ul Normal 0.0-0.7 [facility] Comment on above: Performed By: #### C MP #### [facility] [address] [address] [address] Get Whitten Eosinophils/100 WBC (Bld) 0.2 % Critically low 0.9-7.0 [facility] Comment on above: Performed By: #### C MP #### [facility] [address] [place] [address] Dr. Get Whitten Erythrocyte distribution width (RBC) [Ratio] 13.1 % Normal 11.0-15.0 [facility] Comment on above: Performed By: #### C MP #### [facility] [address] [place] [address] Dr. Get Whitten Hematocrit (Bld) [Volume fraction] 41.5 % Critically low 42.0-54.0 [facility] Comment on above: Performed By: #### C MP #### [facility] [address] [address] [address] Get Whitten Hemoglobin (Bld) [Mass/Vol] 14.4 g/dL Normal 14.0-18.0 [facility] Comment on above: Performed By: #### C MP #### [facility] [address] [address] [address] Get Whitten IG # 0.12 10e3/ul Critically high 0.00-0.03 [facility] Comment on above: Performed By: #### C MP #### [facility] [address] [address] [address] Get Whitten IG % 1.1 % Critically high 0.0-0.5 [facility] Comment on above: Performed By: #### C MP #### [facility] [address] [place] [address] Dr. Get Whitten LYMPH # 2.3 103/ul Normal 1.2-3.8 [facility] Comment on above: Performed By: #### C MP #### [facility] [address] [place] [address] Dr. Get Whitten Lymphocytes/100 WBC (Bld) 20.9 % Normal 20.5-60.0 [facility] Comment on above: Performed By: #### C MP #### [facility] [address] [place] [address] Dr. Get Whitten MANUAL DIFF REQ NO Normal [facility] Comment on above: Performed By: #### C MP #### [facility] [address] [place] [address] Dr. Get Whitten MCH (RBC) [Entitic mass] 37.1 pg Critically high 25.9-34.0 [facility] Comment on above: Performed By: #### C MP #### [facility] [address] [place] [address] Dr. Get Whitten MCHC (RBC) [Mass/Vol] 34.7 g/dL Normal 29.9-35.2 [facility] Comment on above: Performed By: #### C MP #### [facility] [address] [address] [address] Get Whitten MCV (RBC) [Entitic vol] 107.0 fL Critically high 80.0-94.0 [facility] Comment on above: Result Comment: 1+ m acrocytosis Performed By: #### C MP #### [facility] [address] [address] [address] Get Whitten MONO # 0.7 103/ul Normal 0.3-0.8 [facility] Comment on above: Performed By: #### C MP #### [facility] [address] [address] [address] Get Whitten Monocytes/100 WBC (Bld) 6.3 % Normal 1.7-12.0 [facility] Comment on above: Performed By: #### C MP #### [facility] [address] [place] [address] Dr. Get Whitten NEUT # 7.7 103/ul Critically high 1.4-6.5 [facility] Comment on above: Performed By: #### C MP #### [facility] [address] [address] [address] Get Whitten Neutrophils/100 WBC (Bld) 71.1 % Normal 43.0-75.0 [facility] Comment on above: Performed By: #### C MP #### [facility] [address] [address] [address] Get Whitten Platelet mean volume (Bld) [Entitic vol] 8.6 fL Critically low 9.5-13.5 [facility] Comment on above: Performed By: #### C MP #### [facility] [address] [address] [address] Get Whitten PLT 238 103/ul Normal 150-450 [facility] Comment on above: Performed By: #### C MP #### [facility] [address] [place] [address] Dr. Get Whitten RBC 3.88 106/ul Critically low 4.70-6.10 [facility] Comment on above: Performed By: #### C MP #### [facility] [address] [address] [address] Get Whitten WBC 10.8 103/ul Normal 4.0-11.0 [facility] Comment on above: Performed By: #### C MP #### [facility] [address] [address] [address] Get Wihtten Covid-19 PCR ([facility])on 12-15 SARS-CoV-2 (COVID-19) RNA ASHLEE+probe Ql (Unsp spec) Not detected Normal NOT DETECTED [facility] Comment on above: Result Comment: When diagnostic [...] for this test is supported by the [place] of Health and Human Service's declaration that [...] By: #### C FILOMENA, HSTROPN, BNP #### [facility] [address] [place] [address] Dr. Get Whitten PROF 14(COMP METB)on 022 Albumin [Mass/Vol] 4.0 g/dL Normal 3.4-5.0 [facility] Comment on above: Performed By: #### C FILOMENA, HSTROPN, BNP #### [facility] [address] [place] [address] Dr. Get Whitten Albumin/Globulin [Mass ratio] 1.0 {ratio} Normal [facility] Comment on above: Performed By: #### C FILOMENA HSTROPN, BNP #### [facility] [address] [place] [address] Dr. Get Whitten ALP [Catalytic activity/Vol] 90 U/L Normal 46-116 [facility] Comment on above: Performed By: #### C MP, HSTROPN, BNP #### [facility] [address] [place] [address] Dr. Get Whitten ALT [Catalytic activity/Vol] 27 U/L Normal 16-63 [facility] Comment on above: Performed By: #### C MP, HSTROPN, BNP #### [facility] [address] [place] [address] Dr. Get Whitten Anion gap [Moles/Vol] 12.6 mmol/L Normal [facility] Comment on above: Performed By: #### C MP, HSTROPN, BNP #### [facility] [address] [place] [address] Dr. Get Whitten AST [Catalytic activity/Vol] 16 U/L Normal 15-37 [facility] Comment on above: Performed By: #### C MP, HSTROPN, BNP #### [facility] [address] [place] [address] Dr. Get Whitten Bilirubin [Mass/Vol] 0.4 mg/dL Normal 0.2-1.0 [facility] Comment on above: Performed By: #### C MP, HSTROPN, BNP #### [facility] [address] [place] [address] Dr. Get Whitten Calcium [Mass/Vol] 8.4 mg/dL Critically low 8.5-10.1 Th [facility] Comment on above: Performed By: #### C MP, HSTROPN, BNP #### [facility] [address] [place] [address] Dr. Get Whitten Chloride [Moles/Vol] 100 mmol/L Normal 98-107 [facility] Comment on above: Performed By: #### C MP, HSTROPN, BNP #### [facility] [address] [place] [address] Dr. Get Whitten CO2 [Moles/Vol] 25.1 mmol/L Normal 21.0-32.0 [facility] Comment on above: Performed By: #### C MP, HSTROPN, BNP #### [facility] [address] [address] [address] Get Whitten Creatinine [Mass/Vol] 1.20 mg/dL Normal 0.70-1.30 [facility] Comment on above: Performed By: #### C MP, HSTROPN, BNP #### [facility] [address] [place] [address] Dr. Get Whitten EGFR-AF BULGARIAN >60 Normal >=60 [facility] Comment on above: Performed By: #### C MP, HSTROPN, BNP #### [facility] [address] [place] [address] Dr. Get Whitten EGFR-NON AF BULGARIAN >60 Normal >=60 [facility] Comment on above: Performed By: #### C MP, HSTROPN, BNP #### [facility] [address] [place] [address] Dr. Get Whitten Globulin (S) [Mass/Vol] 4.0 g/dL Normal [facility] Comment on above: Performed By: #### C MP, HSTROPN, BNP #### [facility] [address] [place] [address] Dr. Get Whitten Glucose [Mass/Vol] 110 mg/dL Critically high 74-106 [facility] Comment on above: Performed By: #### C MP, HSTROPN, BNP #### [facility] [address] [place] [address] Dr. Get Whitten Potassium [Moles/Vol] 4.7 mmol/L Normal 3.5-5.1 [facility] Comment on above: Performed By: #### C MP, HSTROPN, BNP #### [facility] [address] [place] [address] Dr. Get Whitten Protein [Mass/Vol] 8.0 g/dL Normal 6.4-8.2 The [facility] Comment on above: Performed By: #### C MP, HSTROPN, BNP #### [facility] [address] [place] [address] Dr. Get Whitten Sodium [Moles/Vol] 133 mmol/L Critically low 136-145 Th e [facility] Comment on above: Performed By: #### C MP, HSTROPN, BNP #### [facility] [address] [place] [address] Dr. Get Whitten Urea nitrogen [Mass/Vol] 7.0 mg/dL Normal 7.0-18.0 [facility] Comment on above: Performed By: #### C MP, HSTROPN, BNP #### [facility] [address] [place] [address] Dr. Get Whitten Urea nitrogen/Creatinine [Mass ratio] 5.8 mg/mg Normal [facility] Comment on above: Performed By: #### C MP, HSTROPN, BNP #### [facility] [address] [place] [address] Dr. Get Whitten PROTIMEon 01-09-2022 INR Coag (PPP) [Relative time] {INR} Normal [facility] Comment on above: Performed By: #### C VDTBH #### [facility] [address] [place] [address] Dr. Get Whitten INR GUIDELINES SEE BELOW Normal [facility] Comment on above: Result Comment: JORGE RED INR: 2.0 - 3.0 CONDITIONS NOT LISTED BELOW 2.5 - 3.5 FOR PROSTHETIC HEART VALVE REPLACEMENT 2.5 - 3.5 RECURRENT THROMBOSIS Performed By: #### C VDTBH #### [facility] [address] [place] [address] Dr. Get Whitten PT Coag (PPP) [Time] 9.8 s Normal 9.0-11.6 [facility] Hospital Comment on above: Performed By: #### C VDTBH #### [facility] [address] [place] [address] Dr. Get Whitten PTTon 01-09-2022 aPTT Coag (Bld) [Time] 28.5 s Normal 22.3-36.2 [facility] Comment on above: Performed By: #### C MP #### [facility] [address], [place] [address] Dr. Get Whitten TROPONIN, HIGH SENSITIVITYon 01-09-2022 HSTROP 4.1 pg/mL Normal 4.0-76.1 [facility] Comment on above: Result Comment: CUT- OFF POINTS HAVE BEEN ESTABLISHED BASED ON THE FOURTH UNIVERSAL DEFINITIONS OF MYOCARDIAL INFARCTION. THE UPPER REFERENCE LIMIT (URL) OF TROPONIN, DEFINED THE 99TH PERCENTILE OF cTnI DISTRIBUTION IN A REFERENCE POPULATION, HAS BEEN CONFIRMED THE DECISION THRESHOLD FOR [place] DIAGNOSIS. Performed By: #### C MP, HSTROPN, BNP #### [facility] [address], [place] [address] Dr. Get Whitten XR CHEST 1 Von [...] JULIO CESAR BUTCHER Date: 2022-01-09 18:21 Normal [facility] Coding Summary.on 12-18-2018 Coding Summary. 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 Start: 05-28-2023 End: 05-28-2023 Evaluation and management of inpatient [facility] Start: 05-18-2023 End: 05-18-2023 ambulatory [facility] Start: 04-24-2023 End: 04-25-2023 [facility] Start: 04-21-2023 Evaluation and management of inpatient CAROLEEMERCED ZACKARY [facility] Start: 04-20-2023 End: 04-24-2023 Evaluation and management of inpatient ION SIMS [facility] Start: 04-20-2023 Emergency department patient visit [facility] Start: 04-20-2023 End: 04-20-2023 Emergency department patient visit [facility] Start: 01-08-2023 End: 01-09-2023 ambulatory Hernandez Wylie [...] Category Payer Private Health Insurance 1965 Unknown [id number] 2.16.84 0.1.517353.3.579.2.59 1965 Unknown [id number] 2.16.84 0.1.676588.3.579.2.59 1965 Unknown [id number] 2.16.84 0.1.919381.3.579.2.59 1965 Unknown [id number] 2.16.84 0.1.491328.3.579.2.593 1965 Unknown [id number] 2.16.84 0.1.626317.3.579.2.59 1965 Unknown [id number] 2.16.84 0.1.446314.3.579.2.593 1965 Unknown [id number] 2.16.84 0.1.057519.3.579.2.59 1965 Unknown [id number] 2.16.84 0.1.023819.3.579.2.593 1965 Unknown [id number] 2.16.84 0.1.239087.3.579.2.593 1965 Unknown [id number] 2.16.84 0.1.744910.3.579.2.593 1965 Unknown [id number] 2.16.84 0.1.351431.3.579.2.593 1965 Unknown [id number] 2.16.84 0.1.167804.3.579.2.593 1965 Unknown [id number] 2.16.84 0.1.720022.3.579.2.593 1965 Unknown [id number] 2.16.84 0.1.272938.3.579.2.593 1965 Unknown [id number] 2.16.84 0.1.421763.3.579.2.593 1965 Unknown [id number] 2.16. 840.1.112410.3.579.2.196 1965 Unknown [id number] 2.16. 840.1.247857.3.579.2.196 1959 Medicare [id number] 1959 Private Health Insurance [id number] 1959 Self-pay [id number] Clinical Notes 10-24-2022 to 07-17-2023 Note Date & Type Note Facility 07-17-2023 Note Patient here for [facility]. C/o B/L LE edema, R>L. Says [...] All other systems reviewed and are negative. [facility] 05-28-2023 Note Hospital Medicine Discharge Summary Final Discharge Diagnosis: Syncope Admission Diagnosis: NSTEMI (non-ST elevated myocardial infarction) ([facility]) [I21.4] Hospital course: 58 y.o. male who came from home with syncope. Patient with a medical history of hypertension, migraine headache, seizure, neuropathy, previous episodes of syncopal attack related to cardiac reason. Came in as a transfer for possible new syncope with chest pain resolved with nitroglycerin sublingual and outside facility ER. Ordered stat CBC, CMP, Mag, phosph, EKG and telemetry. Admiting [facility] pt to the stepdown unit and consult [facility] cardiology team. We will follow-up on [...] 100-62.5-25 mcg blister with device Generic drug: hgyllckzxip-ouotssoqv-ryzoqczi STOP taking these medications hydrocortisone 10 mg [...] Hammonds MD Hospital Medicine 05/28/2023 2:[address] [facility] 05-28-2023 Note 05/28/23 1009 Admission Assessment [...] Discharge? Yes Does the patient have a rn case management assigned to them through their insurance? Yes [...] link and activate MyChart? MyChart already active [facility] 05-28-2023 Note . Hospital Medicine History and Physical 05/27/2023 11:38 PM THE HOSPITALIST TEAM PREFERS TO USE [employer] FOR COMMUNICATION 7AM-7PM. IF I DO NOT RESPOND WITHIN 15 MINUTES, PLEASE PAGE ME/CALL THROUGH THE PYRIDINE RECOVERY OPERATOR. FROM 7PM-7AM, PLEASE PAGE [phone](COVR) Chief Complaint Syncope. History of Present Illness [...] CMP, Mag, phosph, EKG and telemetry. Admiting [facility] pt to the stepdown unit and consult [facility] cardiology team. We will follow-up on [...] Date Noted NSTEMI (non-ST elevated myocardial infarction) ([facility]) 05/27/2023 Adrenal insufficiency ([facility]) 04/24/2023 Acute gout 04/20/2023 Hypertension 04/20/2023 Allergic [...] this hospital stay by a member of [facility] Medicine. Past Medical History No past medical history on file. Past Surgical History No past surgical history on file. Social History Social History Socioeconomic History Marital status: (more content not included)... [facility] 05-18-2023 Note [place] Electrophysiology Consult Note Reason for visit: hospital follow up HPI: Rehan Poole is a 58 y.o. year old with past medical history of hypertension, migraine headaches, seizure, neuropathy, history of PFO He was just seen at [facility] for syncope / CP, he [...] Last Year: No Allergies: Allergies Allergen Reactions Ellijay Anaphylaxis Penicillins Angioedema Weight: 104kg Visit Vitals [...] 0.5 mg by mouth in the morning. njpnxmtooof-zuyryzbsy-nkgnbbov (Trelegy Ellipta) 100-62.5-25 mcg blister with device [...] normal curvature, no (more content not included)... [facility] 04-24-2023 Note Patient given discha rge instructions and education provided regarding meds and appts. EKG called to educate patient about cardiac event monitor instructions. Patient waiting for imeds to deliver. [facility] notified of patient discharge. [facility] 04-23-2023 Note Hospital Medicine Daily Progress Note - 04/23/2023 11:22 AM; Room: [address] [place] [address] Admission: 04/20/2023 4:06 PM; Length of stay: 2 days THE HOSPITALIST TEAM PREFERS TO USE [employer] CHAT FOR COMMUNICATION 7AM-7PM. IF I DO NOT RESPOND WITHIN 15 MINUTES, PLEASE PAGE ME/CALL THROUGH THE PYRIDINE RECOVERY OPERATOR. FROM 7PM-7AM, PLEASE PAGE [phone](COVR) Code Status: Full Code Discharge Destination: home [...] CORTISOL 8.3 04/22/2023 No results found for: [id number], IRON, TIBC, C3, C4, JADA, CANCA, ASO, PSA, CEA, CA125, CA199, AFP, CA153 Imaging Transthoracic echo (TTE) complete 1 [facility] Heart Station [address] [place] [address] [phone] (fax) Echocardiogram-[facility] Name: REHAN (more content not included)... [facility] 04-22-2023 Note Hospital Medicine Daily Progress Note - 04/22/2023 3:22 PM; Room: [address] [place] [address] Admission: 04/20/2023 4:06 PM; Length of stay: 1 days THE HOSPITALIST TEAM PREFERS TO USE [employer] CHAT FOR COMMUNICATION 7AM-7PM. IF I DO NOT RESPOND WITHIN 15 MINUTES, PLEASE PAGE ME/CALL THROUGH THE PYRIDINE RECOVERY OPERATOR. FROM 7PM-7AM, PLEASE PAGE [phone](COVR) Code Status: Full Code Discharge Destination: home [...] unable to tolerate treadmill stress test. - [facility] does not provide inpatient endocrinology consultation. [facility]. 's were called to transfer patient for inpatient endocrinology evaluation. They both reported they do not provide that service. I called [facility] to transfer patient and they reported that they are tight on beds and would be unable to except transfer, although they do have inpatient endocrinology consultation. They recommended they speak with their on-call rotary derrick operator at [employer] ([phone]) for teleconsultation. I spoke with Dr. Solis [...] oral, Daily topiram (more content not included)... [facility] 04-21-2023 Note Hospital Medicine Daily Progress Note - 04/21/2023 4:00 PM; Room: [address] [place] [address] Admission: 04/20/2023 4:06 PM; Length of stay: 0 days THE HOSPITALIST TEAM PREFERS TO USE [employer] CHAT FOR COMMUNICATION 7AM-7PM. IF I DO NOT RESPOND WITHIN 15 MINUTES, PLEASE PAGE ME/CALL THROUGH THE PYRIDINE RECOVERY OPERATOR. FROM 7PM-7AM, PLEASE PAGE [phone](COVR) Code Status: Full Code Discharge Destination: home [...] 1.8 (L) 04/21/2023 No results found for: [id number], IRON, TIBC, C3, C4, JADA, CANCA, ASO, PSA, CEA, CA125, CA199, AFP, CA153 Imaging ECG 12 lead Normal sinus rhythm Low voltage QRS ST & T wave (more content not included)... [facility] 04-21-2023 Note ---- Attestation signed by [...] Value Ventricular Rate 59 Atrial Rate 59 SC Interval 132 QRS DURATION 86 QT Interval 430 QTC CALCULATION(BAZETT) 425 P Hegins 43 R-Hegins -12 T Wave Hegins 73 Impression Sinus bradycardia Low voltage QRS [...] questions. Helen Calixto PGY-2, Internal medicine resident [facility] 04-20-2023 Note Hospital Medicine History and Physical 04/20/2023 7:28 PM THE HOSPITALIST TEAM PREFERS TO USE [employer] FOR COMMUNICATION 7AM-7PM. IF I DO NOT RESPOND WITHIN 15 MINUTES, PLEASE PAGE ME/CALL THROUGH THE PYRIDINE RECOVERY OPERATOR. FROM 7PM-7AM, PLEASE PAGE [phone](COVR) Chief Complaint No chief complaint on file. History of Present Illness Rehan Poole is an 58 y.o. male who came from home with past medical history of hypertension, migraine headaches, seizure, neuropathy, history of PFO presented to [facility] as a transfer from [facility] because of new onset of Mob[place] [...] II arrhythmia and patient was transferred to [facility] for possible pacemaker placement. Here, [...] it is exertional. Blood work and the [facility] showed hyponatremia with a sodium 127, [...] Diagnosis Date Noted Hyponatremia 04/20/2023 COPD exacerbation ([facility]) 04/20/2023 Acute gout 04/20/2023 Hypertension 04/20/2023 Allergic [...] will discontinue azithromycin (more content not included)... [facility] 11-27-2022 Note PROCEDURE: XR ANKLE LT 2V HISTORY: Unspecified fall , left ankle pain COMPARISON: None. FINDINGS: BONES:No fracture, acute abnormality, or significant arthropathy. SOFT TISSUES:Mild anterior lateral soft tissue swelling. EFFUSION:None visible. OTHER: Negative. IMPRESSION: 1. No acute bone abnormality. Electronically authenticated by: SHEN SOSA Date: 2022-11-27 11:27 [facility] 10-24-2022 Note PROCEDURE: XR HIP LT 2 3V W PELVIS HISTORY: Idiopathic osteoarthritis ; acute left hip pain after falling COMPARISON: None. FINDINGS: BONES:No fracture, acute abnormality, or significant arthropathy. SOFT TISSUES:No visible soft tissue swelling. EFFUSION:None visible. OTHER: Negative. IMPRESSION: 1. No acute bone abnormality or significant degenerative joint disease. Electronically authenticated by: SHEN SOSA Date: 2022-10-24 09:51 [facility] Summary Purpose Family History No Family History [...] content) DATE CREATED AUTHOR 02/15/2019 Alberto Lemus [facility] DATE CREATED AUTHOR AUTHOR'S ORGANIZ ATION 12/22/2022 [facility] DATE CREATED AUTHOR AUTHOR'S ORGANIZ ATION 03/06/2023 [facility] DATE CREATED AUTHOR AUTHOR'S ORGANIZ ATION 07/17/2023 [facility] FOR RECORDS PERTAINING TO PATIENTS [...] BE BASED ON THE PRIMARY CLINICAL RECORDS. [facility]. provides no warranty or guarantee of the accuracy or completeness of information in this document.
--- NOTE | 2023-07-21 14:21 | ECG_ITS ---
[facility] Test Date: 2023-07-21 Pat Name: ELENA TREJO Department: Room: [facility] Gender: Male Mental Health Unit Lead Psychologist: : 1965 Requested By: PEE LAKHANI Order Number: [id number] Reading MD: PEE LAKHANI Measurements Intervals [place] Rate: 64 P: 78 NV: 138 QRS: 55 QRSD: 78 T: 57 QT: 406 QTc: 415 Interpretive Statements 1100 Sinus rhythm 8102 Low QRS voltage in chest leads 9120 atypical ECG Compared to ECG 05/27/2023 13:25:38 No significant changes Electronically Signed On 07-22-2023 6:51:30 EST by PEE LAKHANI
[2023-07-21 14:48] LABS: Adenovirus NOT DETECTED (NOT DETECTE); Bordetella parapertussis NOT DETECTED (NOT DETECTE); Coronavirus 229E NOT DETECTED (NOT DETECTE); Coronavirus HKU1 NOT DETECTED (NOT DETECTE); Coronavirus NL63 NOT DETECTED (NOT DETECTE); Coronavirus OC43 NOT DETECTED (NOT DETECTE); Human Metapneumovirus NOT DETECTED (NOT DETECTE); Human Rhinovirus/Enterovirus NOT DETECTED (NOT DETECTE); Influenza A NOT DETECTED (NOT DETECTE); Influenza B NOT DETECTED (NOT DETECTE); Mycoplasma pneumoniae NOT DETECTED (NOT DETECTE); Parainfluenza Virus 1 NOT DETECTED (NOT DETECTE); Parainfluenza Virus 2 NOT DETECTED (NOT DETECTE); Parainfluenza Virus 3 NOT DETECTED (NOT DETECTE); Parainfluenza Virus 4 NOT DETECTED (NOT DETECTE); Respiratory Syncytial Virus NOT DETECTED (NOT DETECTE); SARS-CoV-2 NOT DETECTED (NOT DETECTE)
[2023-07-21 15:09] LABS: Thyroid Stimulating Hormone 0.018 uIU/mL (0.358-3.740)
[2023-07-21 15:32] LABS: Troponin I High Sensitivity 4.6 pg/mL (4.0-76.1)
--- NOTE | 2023-07-21 15:49 | P.HP_ITS ---
H&P: HPI History of Present Illness Chief complaint: BILATERAL EDEMA OF LOWER EXTREMITY Narrative: She was being treated as an outpatient for fluid overload. Given oral Lasix for last for 5 days without improvement. He still has significant edema in his lower extremities he does have a history of acute combined congestive heart failure. Markers in ER so far negative. Patient mated for fluid overload Review of Systems ROS Status of ROS 10 or more systems reviewed and unremark able except as noted in history and below [facility] Medical History (Updated 07/21/23 @ 13:34 by Derrell Kendall MD) Hypertension ?I10 - Essential (primary) hypertension (ICD-10) Hyperlipidemia ?E78.5 - Hyperlipidemia, unspecified (ICD-10) Migraine ?G43.909 - Migraine, unspecified, not intractable, without status migrainosus (ICD-10) Enlarged prostate ?N40.0 - Benign prostatic hyperplasia without lower urinary tract symptoms (ICD-10) Upper back pain ?M54.9 - Dorsalgia, unspecified (ICD-10) Back pain ?M54.9 - Dorsalgia, unspecified (ICD-10) Neck pain ?M54.2 - Cervicalgia (ICD-10) Seizure ?R56.9 - Unspecified convulsions (ICD-10) Numbness and tingling ?R20.0 - Anesthesia of skin (ICD-10) ?R20.2 - Paresthesia of skin (ICD-10) Heartburn ?R12 - Heartburn (ICD-10) Acid reflux ?K21.9 - Gastro-esophageal reflux disease without esophagitis (ICD-10) Hypothyroid ?E03.9 - Hypothyroidism, unspecified (ICD-10) Emphysema of lung ?J43.9 - Emphysema, unspecified (ICD-10) Surgical History H/O cervical spine surgery ?Z98.890 - Other specified postprocedural states (ICD-10) H/O heart surgery ?Z98.890 - Other specified postprocedural states (ICD-10) H/O lumbosacral spine surgery ?Z98.890 - Other specified postprocedural states (ICD-10) Social History Smoking status: Never smoker Highest level of school completed/degree received: Associate degree: occupational, technical, vocational program Do you think of yourself as: straight/heterosexual Gender Identity: male Meds Home Medications and Allergies Home Medications Medication Instructions Recorded Confirmed Type metoprolol tartrate 50 mg tablet 50 mg PO BID 12/24/22 07/21/23 History topiramate 100 mg tablet 100 mg PO DAILY 12/24/22 07/21/23 History trazodone 100 mg tablet 100 mg PO QPM 12/24/22 07/21/23 History aspirin 81 mg chewable tablet 162 mg PO DAILY 12/25/22 07/21/23 History (Aspirin Childrens) atorvastatin 10 mg tablet 10 mg PO QPM 05/25/23 07/21/23 History nitroglycerin 0.4 mg sublingual 0.4 mg sublingual DAILY PRN chest 05/25/23 07/21/23 History tablet pain tizanidine 4 mg tablet 4 mg PO QPM 05/25/23 07/21/23 History isosorbide mononitrate 30 mg 30 mg PO QAM 07/21/23 07/21/23 History tablet,extended release 24 hr levothyroxine 200 mcg tablet 200 mcg PO QAM 07/21/23 07/21/23 History ranolazine 500 mg tablet,extended 500 mg PO Q12H 07/21/23 07/21/23 History release,12 hr topiramate 100 mg tablet 200 mg PO BEDTIME 07/21/23 07/21/23 History furosemide 40 mg tablet (Lasix) 40 mg PO DAILY #7 tabs 07/22/23 Rx potassium chloride 20 mEq 20 meq PO BID #14 tabs 07/22/23 Rx tablet,extended release(part/cryst) (Klor-Con M) Allergies Allergy/AdvReac Type Severity Reaction Status Date / Time Penicillins Allergy Severe Verified 06/21/23 01:46 strawbery Allergy Uncoded 06/21/23 01:46 Exam Constitutional Vital Signs, click to edit/add: Last Vital Signs Temp 97.8 F 07/22/23 05:56 Pulse 88 07/22/23 08:00 Resp 16 07/22/23 05:56 BP 122/75 07/22/23 05:56 Pulse Ox 94 L 07/22/23 05:56 O2 Del Method Room Air 07/22/23 05:56 Documenting provider has reviewed patient's vital signs: yes Common normals: no apparent distress HENMT Common normals: normocephalic and moist oral mucous membranes Chest Common normals: inspection of chest normal and palpation of chest normal Respiratory Common normals: normal respiratory effort and no retractions Cardio Common normals: regular rate and regular rhythm GI Common normals: Normal to inspection, nondistended, normoactive bowel sounds present Extremity Common normals: abnormal to inspection (3+ edema bilateral lower extremities negative Jerardo) Results Labs Labs: Short CBC 07/21/23 07/22/23 Range/Units 12:35 04:51 WBC 11.5 H 12.4 H (4.0-11.0) 10^3/uL Hgb 12.1 L 13.0 L (14.0-18.0) g/dL Hct 37.4 L 40.0 L (42.0-54.0) % Plt Count 266 299 (150-450) 10^3/uL BMP 07/21/23 07/22/23 12:35 04:51 Sodium 129 L 134 L Potassium 3.7 2.7 L* Chloride 97 L 98 Carbon Dioxide 22.3 26.4 BUN 10.0 13.0 Creatinine 0.95 1.09 Glucose 96 90 Calcium 9.2 8.9 Liver Function 07/21/23 Range/Units 12:35 Total Bilirubin 0.3 (0.2-1.0) mg/dL AST 13 L (15-37) U/L ALT 19 (16-63) U/L Alkaline Phosphatase 109 (46-116) U/L Albumin 3.0 L (3.4-5.0) g/dL Assessment and Plan Assessment and Plan (1) Bilateral edema of lower extremity: Plan Hyponatremia, leukocytosis, 3+ peripheral edema secondary to fluid overload- Bumex drip today. If effective possible discharge in a.m. Leukocytosis-no infectious etiology, will follow daily Iron deficiency anemia-follow daily Hyponatremia likely secondary to fluid overload-follow daily Better than a 50% chance of discharge tomorrow with good diuresis from the Bumex drip so we will maintain his observation status
[2023-07-21] MEDS: BUMETANIDE 10 MG in 0.9 % SODIUM CHLORIDE 160 ML 20 MG IV (17:36)
[2023-07-21 18:09] LABS: Troponin I High Sensitivity 4.9 pg/mL (4.0-76.1)
--- NOTE | 2023-07-21 20:20 | PC.NURSE ---
bilateral feet +2 pitting edema, redness and dry skin noted
[2023-07-21] MEDS: METOPROLOL TARTRATE 50 MG TABLET PO (21:36)
[2023-07-21] MEDS: ATORVASTATIN CALCIUM 10 MG TABLET PO (21:37)
[2023-07-21] MEDS: TIZANIDINE HCL 4 MG TABLET PO (21:37)
[2023-07-21] MEDS: TOPIRAMATE 100 MG TABLET 200 MG PO (21:37)
[2023-07-21] MEDS: TRAZODONE HCL 50 MG TABLET 100 MG PO (21:37)
[2023-07-21] MEDS: RANOLAZINE 500 MG TAB.ER.12H PO (21:37)
[2023-07-22] VITALS (10 sets, daily range): BP systolic 118–122; BP diastolic 75–76; PULSE 71–88; RESP 16–18; TEMP 36.6–36.7; O2SAT 93–94
[2023-07-22] MEDS: LEVOTHYROXINE SODIUM 100 MCG TABLET 200 MCG PO (05:54)
[2023-07-22 06:18] LABS: Basophils Absolute Auto 0.1 10^3/uL (0.0-0.1); Basophils Percent Auto 0.5 % (0.2-2.0); Eosinophils Percent Auto 0.2 % (0.9-7.0); Immature Granulocytes Abs Auto 0.16 10^3/uL (0.00-0.03); Immature Granulocytes Pct Auto 1.3 % (0.0-0.5); Lymphocytes Absolute Auto 3.2 10^3/uL (1.2-3.8); Lymphocytes Percent Auto 25.5 % (20.5-60.0); Mean Corpuscular HGB Conc 32.5 g/dL (29.9-35.2); Mean Corpuscular Hemoglobin 31.3 pg (25.9-34.0); Mean Corpuscular Volume 96.4 fL (80.0-94.0); Mean Platelet Volume 10.4 fL (9.5-13.5); Monocytes Percent Auto 7.9 % (1.7-12.0); Neutrophils Percent Auto 64.6 % (43.0-75.0); Platelet Count 299 10^3/uL (150-450); Red Blood Count 4.15 10^6/uL (4.70-6.10); Red Cell Distribution Width 13.7 % (11.0-15.0); White Blood Count 12.4 10^3/uL (4.0-11.0)
[2023-07-22 06:43] LABS: Anion Gap 12.3; BUN Creatinine Ratio 11.9; Calcium 8.9 mg/dL (8.5-10.1); Carbon Dioxide 26.4 mmol/L (21.0-32.0); Chloride 98 mmol/L (98-107); Estimated GFR (African America >60 (>=60); Estimated GFR (Non-African Ame >60 (>=60); Glucose 90 mg/dL (74-106); Sodium 134 mmol/L (136-145)
[2023-07-22 06:58] LABS: Potassium 2.7 mmol/L (3.5-5.1)
[2023-07-22] MEDS: POTASSIUM CHLORIDE 40 MEQ in 0.9 % SODIUM CHLORIDE 250 ML 67.5 MEQ IV (08:45)
[2023-07-22] MEDS: METOPROLOL TARTRATE 50 MG TABLET PO (08:46)
[2023-07-22] MEDS: ISOSORBIDE MONONITRATE 30 MG TAB.ER.24H PO (08:46)
[2023-07-22] MEDS: RANOLAZINE 500 MG TAB.ER.12H PO (08:46)
[2023-07-22] MEDS: TOPIRAMATE 100 MG TABLET PO (08:46)
[2023-07-22] MEDS: ASPIRIN 81 MG TAB.CHEW 162 MG PO (08:46)
[2023-07-22] MEDS: POTASSIUM CHLORIDE 10 MEQ ER TABLET 20 MEQ PO ×2 (08:46→14:29)
[2023-07-22] MEDS: ONDANSETRON PF 4 MG/2 ML VIAL IV (09:35)
--- NOTE | 2023-07-22 09:50 | P.DS_ITS ---
DS: Providers Provider Date of admission: 07/21/23 13:34 Primary care physician: Patrice Guadalupe MD DS: Diagnosis Discharge Diagnosis (1) Bilateral edema of lower extremity: Plan Hyponatremia, leukocytosis, 3+ peripheral edema secondary to fluid overload Leukocytosis- Iron deficiency anemia Hyponatremia likely secondary to fluid overload DS: Summary Hospital Course Hospital Course: Patient is being treated as an outpatient for fluid overload. Presented to emergency room and swelling was not improving despite 4 days of Lasix. In ER found to have some hyponatremia, leukocytosis this is likely secondary to fluid overload. No infectious etiology was found. Patient was diuresed overnight with the Bumex drip and diuresing 5 L. At this point he will be discharged home in improving condition. Medications see list. Follow-up with me in the office next week. Time Spent with Patient Time attestation: Total time spent providing and/or coordinating discharge services: Exam Constitutional Vital Signs, click to edit/add: Last Vital Signs Temp 97.8 F 07/22/23 05:56 Pulse 88 07/22/23 08:00 Resp 16 07/22/23 05:56 BP 122/75 07/22/23 05:56 Pulse Ox 94 L 07/22/23 05:56 O2 Del Method Room Air 07/22/23 05:56 Documenting provider has reviewed patient's vital signs: yes Common normals: no apparent distress HENMT Common normals: normocephalic and moist oral mucous membranes Chest Common normals: inspection of chest normal and palpation of chest normal Respiratory Common normals: normal respiratory effort and no retractions Cardio Common normals: regular rate and regular rhythm GI Common normals: Normal to inspection, nondistended, normoactive bowel sounds present Extremity Common normals: abnormal to inspection (Trace edema bilateral lower extremities negative Jerardo) DS: Data Data Completed and Pending Labs on day of discharge: Labs from last 24 hours 07/22/23 07/21/23 07/21/23 04:51 17:32 14:58 WBC 12.4 H RBC 4.15 L Hgb 13.0 L Hct 40.0 L MCV 96.4 H MCH 31.3 MCHC 32.5 RDW 13.7 Plt Count 299 MPV 10.4 Neut % (Auto) 64.6 Lymph % (Auto) 25.5 [place] % (Auto) 7.9 Eos % (Auto) 0.2 L Baso % (Auto) 0.5 Neut # (Auto) 8.0 H Lymph # (Auto) 3.2 [place] # (Auto) 1.0 H Eos # (Auto) 0.0 Baso # (Auto) 0.1 Abs Immat Gran (auto) 0.16 H Imm/Tot Granulo (auto) 1.3 H Sodium 134 L Potassium 2.7 L* Chloride 98 Carbon Dioxide 26.4 Anion Gap 12.3 BUN 13.0 Creatinine 1.09 Est GFR ( Amer) >60 Est GFR (Non-Af Amer) >60 BUN/Creatinine Ratio 11.9 Glucose 90 Calcium 8.9 Magnesium 2.0 Total Bilirubin AST ALT Alkaline Phosphatase Troponin I High Sens 4.9 4.6 NT-Pro-B Natriuret Pep 250.0 Total Protein Albumin Globulin Albumin/Globulin Ratio TSH Adenovirus (PCR) C. pneumoniae DNA (PCR) Coronavirus Type OC43 Coronavirus Type HKU1 Coronavirus Type 229E Coronavirus Type NL63 Human Metapneumovir PCR M. pneumoniae (PCR) Parainfluenza PCR Parainfluenza 2 (PCR) Parainfluenza 3 (PCR) Parainfluenza 4 (PCR) RSV (RT-PCR) Entero/Rhino (PCR) SARS-CoV-2 (PCR) Bordetella pertussis (PCR) B parapertussis DNA PCR Influenza Type A (PCR) Influenza Type B (PCR) 07/21/23 07/21/23 14:44 12:35 WBC 11.5 H RBC 3.85 L Hgb 12.1 L Hct 37.4 L MCV 97.1 H MCH 31.4 MCHC 32.4 RDW 13.6 Plt Count 266 MPV 9.8 Neut % (Auto) 66.0 Lymph % (Auto) 24.8 [place] % (Auto) 7.5 Eos % (Auto) 0.3 L Baso % (Auto) 0.3 Neut # (Auto) 7.6 H Lymph # (Auto) 2.9 [place] # (Auto) 0.9 H Eos # (Auto) 0.0 Baso # (Auto) 0.0 Abs Immat Gran (auto) 0.13 H Imm/Tot Granulo (auto) 1.1 H Sodium 129 L Potassium 3.7 Chloride 97 L Carbon Dioxide 22.3 Anion Gap 13.4 BUN 10.0 Creatinine 0.95 Est GFR ( Amer) >60 Est GFR (Non-Af Amer) >60 BUN/Creatinine Ratio 10.5 Glucose 96 Calcium 9.2 Magnesium 2.0 Total Bilirubin 0.3 AST 13 L ALT 19 Alkaline Phosphatase 109 Troponin I High Sens 4.6 NT-Pro-B Natriuret Pep 185.0 Total Protein 6.9 Albumin 3.0 L Globulin 3.9 Albumin/Globulin Ratio 0.8 TSH 0.018 L Adenovirus (PCR) Not detected C. pneumoniae DNA (PCR) Not detected Coronavirus Type OC43 Not detected Coronavirus Type HKU1 Not detected Coronavirus Type 229E Not detected Coronavirus Type NL63 Not detected Human Metapneumovir PCR Not detected M. pneumoniae (PCR) Not detected Parainfluenza PCR Not detected Parainfluenza 2 (PCR) Not detected Parainfluenza 3 (PCR) Not detected Parainfluenza 4 (PCR) Not detected RSV (RT-PCR) Not detected Entero/Rhino (PCR) Not detected SARS-CoV-2 (PCR) Not detected Bordetella pertussis (PCR) Not detected B parapertussis DNA PCR Not detected Influenza Type A (PCR) Not detected Influenza Type B (PCR) Not detected Discharge Plan Discharge Disposition: Home, Self-Care Discharge Medications: New furosemide [Lasix] 40 mg tablet 40 mg PO DAILY Qty: 7 0RF potassium chloride [Klor-Con M20] 20 mEq tablet,ER particles/crystals 20 meq PO BID Qty: 14 0RF Continued metoprolol tartrate 50 mg tablet 50 mg PO BID topiramate 100 mg tablet 100 mg PO DAILY trazodone 100 mg tablet 100 mg PO QPM atorvastatin 10 mg tablet 10 mg PO QPM nitroglycerin 0.4 mg tablet, sublingual 0.4 mg sublingual DAILY PRN (Reason: chest pain) tizanidine 4 mg tablet 4 mg PO QPM topiramate 100 mg tablet 200 mg PO BEDTIME aspirin [Aspirin Childrens] 81 mg tablet,chewable 162 mg PO DAILY isosorbide mononitrate 30 mg tablet extended release 24 hr 30 mg PO QAM levothyroxine 200 mcg tablet 200 mcg PO QAM ranolazine 500 mg tablet extended release 12 hr 500 mg PO Q12H Activity: resume usual activities as tolerated Diet: low salt diet Patient Instructions: Furosemide (By mouth), Potassium Chloride (By mouth), Hypokalemia (DC), Edema (DC) Forms: Portal Instructions Follow Up Appointments: Call Dr. Guadalupe's office tomorrow for a follow up within the week #[phone]
--- NOTE | 2023-07-23 13:47 | CM.DCFOLLOWU ---
Person spoke with: Rehan How are you feeling? Feeling much better. How is your pain? No better Did you understand your discharge instructions? Yes I did Do you have any questions about your discharge instructions? No questions. Were you given any prescriptions at discharge? Yes Were you able to get your prescriptions filled? Yes Do you understand how to take your medications as ordered? No questions Do you have any questions about your follow up appointment and do you plan to keep your follow up appointment? is making his appointments today. Is there anything else that you would like to discuss? No. I feel much better. Thank you. Questions/Comments/Concerns/Other:
== END 2023-07-22 16:49 | disposition home or self-care (01) ==
LOC: ER 13:34 → MS 13:48
PROVIDERS: Admitting Provider Family Medicine; Emergency Provider Emergency Medicine Emergency Medical Services; PCP Family Medicine; Visit Provider Family Medicine
DX: E87.70 Fluid overload, unspecified (principal); E87.1 Hypo-osmolality and hyponatremia; D72.829 Elevated white blood cell count, unspecified; D50.9 Iron deficiency anemia, unspecified; R60.0 Localized edema; I10 Essential (primary) hypertension; E78.5 Hyperlipidemia, unspecified; N40.0 Benign prostatic hyperplasia without lower urinary tract symptoms; K21.9 Gastro-esophageal reflux disease without esophagitis; E03.9 Hypothyroidism, unspecified; J43.9 Emphysema, unspecified; Z98.890 Other specified postprocedural states; Z79.82 Long term (current) use of aspirin; Z79.899 Other long term (current) drug therapy; Z79.890 Hormone replacement therapy; Z20.822 Contact with and (suspected) exposure to COVID-19
CPT/HCPCS: 0202U; 36415; 71045; 80048; 80053; 83735; 83880; 84443; 84484; 85025; 93005; 94761; 96365; 96366; 96367; 96375; 96376; 99285; G0378; J2405; J3480

== ENCOUNTER 2023-09-12 17:12 | Observation (INO) | payer OTHER, MEDICARE, SELFPAY ==
[2023-09-12 17:19] VITALS: BP 160/97; PULSE 61; RESP 18; TEMP 37; BMI 32.9
--- NOTE | 2023-09-12 17:22 | ECG_ITS ---
[facility] Test Date: 2023-09-12 Pat Name: ELENA TREJO Department: Room: - Gender: Male Wireless Operator: : 1965 Requested By: [id number] Order Number: [id number] Reading MD: PEE LAKHANI Measurements Intervals [place] Rate: 65 P: 43 OK: 120 QRS: 43 QRSD: 92 T: 46 QT: 412 QTc: 424 Interpretive Statements 1100 Sinus rhythm 8100 Low QRS voltage 9150 abnormal ECG Compared to ECG 07/21/2023 12:05:27 No significant changes Electronically Signed On 09-14-2023 8:35:05 EST by PEE LAKHANI
--- NOTE | 2023-09-12 17:30 | ED.CHESTPAI1 ---
Documented by User: GISSELLE Cordova 09/12/23 19:32 HPI - Chest Pain General Chief Complaint: Chest Pain Stated Complaint: Palpitations, Abnormal Labs Time Seen by Provider: 09/12/23 17:14 Mode of arrival: walk-in Limitations: no limitations History of Present Illness HPI narrative: Patient is a 58-year-old male who presents to the emergency department for chest pain that began this morning. He denies associated shortness of breath but he has had vomiting for the last hour. He is actively dry heaving at initial interview. He states he had a stress test earlier this year, he is under the care of [facility] cardiology. He states he currently has a loop recorder and is due to go in for more cardiac monitoring as he continues to have episodes of chest pain. He took 2 aspirin this morning with the chest pain. He took a nitro prior to arrival with no significant improvement. He has not had any fevers, cough or congestion. 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 Risk Factors Coronary artery disease risk factors: hyperlipidemia and hypertension Related Data Home Medications Medication Instructions Recorded Confirmed metoprolol tartrate 50 mg tablet 50 mg PO BID 12/24/22 09/12/23 aspirin 81 mg chewable tablet 162 mg PO DAILY 12/25/22 09/12/23 (Aspirin [facility]s) atorvastatin 10 mg tablet 10 mg PO QPM 05/25/23 09/12/23 tizanidine 4 mg tablet 4 mg PO QPM 05/25/23 09/12/23 isosorbide mononitrate 30 mg 30 mg PO QAM 07/21/23 09/12/23 tablet,extended release 24 hr ranolazine 500 mg tablet,extended 500 mg PO Q12H 07/21/23 09/12/23 release,12 hr topiramate 100 mg tablet 200 mg PO BEDTIME 07/21/23 09/12/23 Allergies Allergy/AdvReac Type Severity Reaction Status Date / Time Penicillins Allergy Severe Verified 06/21/23 01:46 strawbery Allergy Uncoded 06/21/23 01:46 Review of Systems ROS Constitutional Denies: fever or chills Ears, nose, mouth, and throat Denies: throat pain or nasal congestion Cardiovascular Reports: chest pain Respiratory Denies: shortness of breath or cough Gastrointestinal Reports: nausea and vomiting Musculoskeletal Denies: back pain or neck pain Integumentary/Breast Denies: rash Neurological Denies: headache Endocrine Denies: excessive urination Hematologic/Lymphatic Denies: easy bruising or easy bleeding [facility] Medical History (Updated 09/12/23 @ 19:32 by GISSELLE Cordova) Bilateral edema of lower extremity ?R60.0 - Localized edema (ICD-10) Hypertension ?I10 - Essential (primary) hypertension (ICD-10) Hyperlipidemia ?E78.5 - Hyperlipidemia, unspecified (ICD-10) Migraine ?G43.909 - Migraine, unspecified, not intractable, without status migrainosus (ICD-10) Enlarged prostate ?N40.0 - Benign prostatic hyperplasia without lower urinary tract symptoms (ICD-10) Upper back pain ?M54.9 - Dorsalgia, unspecified (ICD-10) Back pain ?M54.9 - Dorsalgia, unspecified (ICD-10) Neck pain ?M54.2 - Cervicalgia (ICD-10) Seizure ?R56.9 - Unspecified convulsions (ICD-10) Numbness and tingling ?R20.0 - Anesthesia of skin (ICD-10) ?R20.2 - Paresthesia of skin (ICD-10) Heartburn ?R12 - Heartburn (ICD-10) Acid reflux ?K21.9 - Gastro-esophageal reflux disease without esophagitis (ICD-10) Hypothyroid ?E03.9 - Hypothyroidism, unspecified (ICD-10) Emphysema of lung ?J43.9 - Emphysema, unspecified (ICD-10) Surgical History H/O cervical spine surgery ?Z98.890 - Other specified postprocedural states (ICD-10) H/O heart surgery ?Z98.890 - Other specified postprocedural states (ICD-10) H/O lumbosacral spine surgery ?Z98.890 - Other specified postprocedural states (ICD-10) Social History Smoking status: Current every day smoker Highest level of school completed/degree received: some college, no degree Do you think of yourself as: straight/heterosexual Gender Identity: male Exam Narrative Exam Narrative: Gen.: Awake, alert, in no distress Head: Normocephalic, atraumatic ENT: Moist mucous membranes Respiratory: No respiratory distress, lungs clear bilaterally Cardio: Regular rate and rhythm Gastrointestinal: Abdomen is soft, nondistended and nontender to palpation Extremities: Moves extremities equally, no pedal edema Psych: Normal mood and affect Neuro: No focal neuro deficit Skin: Warm, dry, intact Constitutional Vital Signs, click to edit/add: Last Vital Signs Temp 97.5 F L 09/12/23 20:24 Pulse 52 L 09/12/23 20:24 Resp 15 09/12/23 20:24 BP 148/100 H 09/12/23 20:24 Pulse Ox 100 09/12/23 20:24 O2 Del Method Room Air 09/12/23 20:24 Course Vital Signs Vital signs: Vital Signs Temperature 98.6 F 09/12/23 17:19 Pulse Rate 61 09/12/23 17:19 Respiratory Rate 18 09/12/23 17:19 Blood Pressure 160/97 H 09/12/23 17:19 Oxygen Delivery Method Room Air 09/12/23 17:19 Temperature 97.5 F L 09/12/23 20:24 Pulse Rate 52 L 09/12/23 20:24 Respiratory Rate 15 09/12/23 20:24 Blood Pressure 148/100 H 09/12/23 20:24 Pulse Oximetry 100 09/12/23 20:24 Oxygen Delivery Method Room Air 09/12/23 20:24 MDM - Chest Pain MDM Narrative Medical decision making narrative: Patient with hyponatremia and elevated TSH, free T3 and free T4 were ordered. Patient with no EKG changes in the ER, he is resting comfortably, given IV fluids and Zofran. Repeat troponin and EKG obtained. Patient will be admitted for observation to stepdown for further evaluation and treatment. Medical Records Data Attestation: I reviewed the patient's medical records. Lab Data Attestation: I reviewed the patient's lab results. Labs: Lab Results 09/12/23 09/12/23 09/12/23 Range/Units 17:33 17:53 19:10 WBC 9.0 (4.0-11.0) 10^3/uL RBC 4.78 (4.70-6.10) 10^6/uL Hgb 14.8 (14.0-18.0) g/dL Hct 44.8 (42.0-54.0) % MCV 93.7 (80.0-94.0) fL MCH 31.0 (25.9-34.0) pg MCHC 33.0 (29.9-35.2) g/dL RDW 16.2 H (11.0-15.0) % Plt Count 249 (150-450) 10^3/uL MPV 9.0 L (9.5-13.5) fL Neut % (Auto) 51.8 (43.0-75.0) % Lymph % (Auto) 41.8 (20.5-60.0) % [place] % (Auto) 4.5 (1.7-12.0) % Eos % (Auto) 0.7 L (0.9-7.0) % Baso % (Auto) 0.8 (0.2-2.0) % Neut # (Auto) 4.7 (1.4-6.5) 10^3/uL Lymph # (Auto) 3.8 (1.2-3.8) 10^3/uL [place] # (Auto) 0.4 (0.3-0.8) 10^3/uL Eos # (Auto) 0.1 (0.0-0.7) 10^3/uL Baso # (Auto) 0.1 (0.0-0.1) 10^3/uL Abs Immat Gran (auto) 0.04 H (0.00-0.03) 10^3/uL Imm/Tot Granulo (auto) 0.4 (0.0-0.5) % PT 9.9 (9.0-11.6) sec INR 0.93 Sodium 123 L* (136-145) mmol/L Potassium 3.8 (3.5-5.1) mmol/L Chloride 93 L (98-107) mmol/L Carbon Dioxide 19.5 L (21.0-32.0) mmol/L Anion Gap 14.3 BUN 7.0 (7.0-18.0) mg/dL Creatinine 1.17 (0.70-1.30) mg/dL Est GFR ( Amer) >60 (>=60) Est GFR (Non-Af Amer) >60 (>=60) BUN/Creatinine Ratio 6.0 Glucose 91 (74-106) mg/dL Lactate 0.8 (0.4-2.0) mmol/L Calcium 8.5 (8.5-10.1) mg/dL Magnesium 2.2 (1.8-2.4) mg/dL Total Bilirubin 0.4 (0.2-1.0) mg/dL AST 21 (15-37) U/L ALT 12 L (16-63) U/L Alkaline Phosphatase 93 (46-116) U/L Troponin I High Sens 4.4 (4.0-76.1) pg/mL NT-Pro-B Natriuret Pep 162.0 (<=900.0) pg/mL Total Protein 8.0 (6.4-8.2) g/dL Albumin 3.7 (3.4-5.0) g/dL Globulin 4.3 g/dL Albumin/Globulin Ratio 0.9 TSH 92.657 H (0.358-3.740) uIU/mL Free T4 0.16 L (0.76-1.46) ng/dL Free T3 <0.50 L (2.18-3.98) pg/mL Urine Color Lt. yellow (YELLOW) Urine Clarity Clear (CLEAR) Urine pH 6.0 (5.0-9.0) Ur Specific [place] 1.015 (1.005-1.025) Urine Protein Negative (NEG/TRACE) mg/dL Urine Glucose (UA) Negative (NEGATIVE) mg/dL Urine Ketones Trace A (NEGATIVE) mg/dL Urine Occult Blood Negative (NEGATIVE) Urine Nitrite Negative (NEGATIVE) Urine Bilirubin Negative (NEGATIVE) Urine Urobilinogen 0.2 (0.2-1.0) EU/dL Ur Leukocyte Esterase Negative (NEGATIVE) Ur Random Sodium 76 (30-90) mmol/L 09/12/23 Range/Units 19:14 WBC (4.0-11.0) 10^3/uL RBC (4.70-6.10) 10^6/uL Hgb (14.0-18.0) g/dL Hct (42.0-54.0) % MCV (80.0-94.0) fL MCH (25.9-34.0) pg MCHC (29.9-35.2) g/dL RDW (11.0-15.0) % Plt Count (150-450) 10^3/uL MPV (9.5-13.5) fL Neut % (Auto) (43.0-75.0) % Lymph % (Auto) (20.5-60.0) % [place] % (Auto) (1.7-12.0) % Eos % (Auto) (0.9-7.0) % Baso % (Auto) (0.2-2.0) % Neut # (Auto) (1.4-6.5) 10^3/uL Lymph # (Auto) (1.2-3.8) 10^3/uL [place] # (Auto) (0.3-0.8) 10^3/uL Eos # (Auto) (0.0-0.7) 10^3/uL Baso # (Auto) (0.0-0.1) 10^3/uL Abs Immat Gran (auto) (0.00-0.03) 10^3/uL Imm/Tot Granulo (auto) (0.0-0.5) % PT (9.0-11.6) sec INR Sodium (136-145) mmol/L Potassium (3.5-5.1) mmol/L Chloride (98-107) mmol/L Carbon Dioxide (21.0-32.0) mmol/L Anion Gap BUN (7.0-18.0) mg/dL Creatinine (0.70-1.30) mg/dL Est GFR ( Amer) (>=60) Est GFR (Non-Af Amer) (>=60) BUN/Creatinine Ratio Glucose (74-106) mg/dL Lactate (0.4-2.0) mmol/L Calcium (8.5-10.1) mg/dL Magnesium (1.8-2.4) mg/dL Total Bilirubin (0.2-1.0) mg/dL AST (15-37) U/L ALT (16-63) U/L Alkaline Phosphatase (46-116) U/L Troponin I High Sens 4.9 (4.0-76.1) pg/mL NT-Pro-B Natriuret Pep (<=900.0) pg/mL Total Protein (6.4-8.2) g/dL Albumin (3.4-5.0) g/dL Globulin g/dL Albumin/Globulin Ratio TSH (0.358-3.740) uIU/mL Free T4 (0.76-1.46) ng/dL Free T3 (2.18-3.98) pg/mL Urine Color (YELLOW) Urine Clarity (CLEAR) Urine pH (5.0-9.0) Ur Specific [place] (1.005-1.025) Urine Protein (NEG/TRACE) mg/dL Urine Glucose (UA) (NEGATIVE) mg/dL Urine Ketones (NEGATIVE) mg/dL Urine Occult Blood (NEGATIVE) Urine Nitrite (NEGATIVE) Urine Bilirubin (NEGATIVE) Urine Urobilinogen (0.2-1.0) EU/dL Ur Leukocyte Esterase (NEGATIVE) Ur Random Sodium (30-90) mmol/L Imaging Data Chest x-ray: Attestation: I have reviewed the pertinent imaging results. Radiologist's impression: ITS Impressions Chest X-Ray 09/12/23 18:10 IMPRESSION: Unremarkable AP erect portable chest radiograph. Electronically authenticated by: GARETH CHOW Date: 09/12/2023 18:18 ECG Data Attestation: I personally reviewed and interpreted this ECG as follows: (Sinus rhythm at a rate of 58, no acute ST elevation or ectopy. EKG reviewed by attending physician) Heart Score History: Slightly/Non-Suspicious ECG: NS Repolarization Age: >45-<65 years Risk Factors: >3 Risk Factors/ HX of CAD:2 Troponin: <Normal Limit Total Heart Score Recommendations & Risks:: 4 Discharge Plan Discharge Chief Complaint: Chest Pain Clinical Impression: Chest pain, Acute hyponatremia Patient Disposition: Admitted as Observation Time of Disposition Decision: 19:30 Condition: Good Discharge Date/Time: 09/12/23 20:03 Documented by User: Zaire Perez MD 09/12/23 20:49 HPI - Chest Pain General Chief Complaint: Chest Pain Stated Complaint: Palpitations, Abnormal Labs Time Seen by Provider: 09/12/23 17:14 Related Data Home Medications Medication Instructions Recorded Confirmed metoprolol tartrate 50 mg tablet 50 mg PO BID 12/24/22 09/12/23 aspirin 81 mg chewable tablet 162 mg PO DAILY 12/25/22 09/12/23 (Aspirin [facility]s) atorvastatin 10 mg tablet 10 mg PO QPM 05/25/23 09/12/23 tizanidine 4 mg tablet 4 mg PO QPM 05/25/23 09/12/23 isosorbide mononitrate 30 mg 30 mg PO QAM 07/21/23 09/12/23 tablet,extended release 24 hr ranolazine 500 mg tablet,extended 500 mg PO Q12H 07/21/23 09/12/23 release,12 hr topiramate 100 mg tablet 200 mg PO BEDTIME 07/21/23 09/12/23 Allergies Allergy/AdvReac Type Severity Reaction Status Date / Time Penicillins Allergy Severe Verified 06/21/23 01:46 strawbery Allergy Uncoded 06/21/23 01:46 [facility] Medical History (Updated 09/12/23 @ 19:32 by GISSELLE Cordova) Bilateral edema of lower extremity ?R60.0 - Localized edema (ICD-10) Hypertension ?I10 - Essential (primary) hypertension (ICD-10) Hyperlipidemia ?E78.5 - Hyperlipidemia, unspecified (ICD-10) Migraine ?G43.909 - Migraine, unspecified, not intractable, without status migrainosus (ICD-10) Enlarged prostate ?N40.0 - Benign prostatic hyperplasia without lower urinary tract symptoms (ICD-10) Upper back pain ?M54.9 - Dorsalgia, unspecified (ICD-10) Back pain ?M54.9 - Dorsalgia, unspecified (ICD-10) Neck pain ?M54.2 - Cervicalgia (ICD-10) Seizure ?R56.9 - Unspecified convulsions (ICD-10) Numbness and tingling ?R20.0 - Anesthesia of skin (ICD-10) ?R20.2 - Paresthesia of skin (ICD-10) Heartburn ?R12 - Heartburn (ICD-10) Acid reflux ?K21.9 - Gastro-esophageal reflux disease without esophagitis (ICD-10) Hypothyroid ?E03.9 - Hypothyroidism, unspecified (ICD-10) Emphysema of lung ?J43.9 - Emphysema, unspecified (ICD-10) Surgical History H/O cervical spine surgery ?Z98.890 - Other specified postprocedural states (ICD-10) H/O heart surgery ?Z98.890 - Other specified postprocedural states (ICD-10) H/O lumbosacral spine surgery ?Z98.890 - Other specified postprocedural states (ICD-10) Social History Smoking status: Current every day smoker Highest level of school completed/degree received: some college, no degree Do you think of yourself as: straight/heterosexual Gender Identity: male Exam Constitutional Vital Signs, click to edit/add: Last Vital Signs Temp 97.5 F L 09/12/23 20:24 Pulse 52 L 09/12/23 20:24 Resp 15 09/12/23 20:24 BP 148/100 H 09/12/23 20:24 Pulse Ox 100 09/12/23 20:24 O2 Del Method Room Air 09/12/23 20:24 Course Vital Signs Vital signs: Vital Signs Temperature 98.6 F 09/12/23 17:19 Pulse Rate 61 09/12/23 17:19 Respiratory Rate 18 09/12/23 17:19 Blood Pressure 160/97 H 09/12/23 17:19 Oxygen Delivery Method Room Air 09/12/23 17:19 Temperature 97.5 F L 09/12/23 20:24 Pulse Rate 52 L 09/12/23 20:24 Respiratory Rate 15 09/12/23 20:24 Blood Pressure 148/100 H 09/12/23 20:24 Pulse Oximetry 100 09/12/23 20:24 Oxygen Delivery Method Room Air 09/12/23 20:24 MDM - Chest Pain MDM Narrative Medical decision making narrative: Patient with hyponatremia and elevated TSH, free T3 and free T4 were ordered. Patient with no EKG changes in the ER, he is resting comfortably, given IV fluids and Zofran. Repeat troponin and EKG obtained. [facility] and [facility]. IDr Perez, have reviewed the above progress note and course of action in the ER; agree with the above. I have gone over history and physical, and discussed disposition and treatment plan with the patient. Lab Data Labs: Lab Results 09/12/23 09/12/23 09/12/23 Range/Units 17:33 17:53 19:10 WBC 9.0 (4.0-11.0) 10^3/uL RBC 4.78 (4.70-6.10) 10^6/uL Hgb 14.8 (14.0-18.0) g/dL Hct 44.8 (42.0-54.0) % MCV 93.7 (80.0-94.0) fL MCH 31.0 (25.9-34.0) pg MCHC 33.0 (29.9-35.2) g/dL RDW 16.2 H (11.0-15.0) % Plt Count 249 (150-450) 10^3/uL MPV 9.0 L (9.5-13.5) fL Neut % (Auto) 51.8 (43.0-75.0) % Lymph % (Auto) 41.8 (20.5-60.0) % [place] % (Auto) 4.5 (1.7-12.0) % Eos % (Auto) 0.7 L (0.9-7.0) % Baso % (Auto) 0.8 (0.2-2.0) % Neut # (Auto) 4.7 (1.4-6.5) 10^3/uL Lymph # (Auto) 3.8 (1.2-3.8) 10^3/uL [place] # (Auto) 0.4 (0.3-0.8) 10^3/uL Eos # (Auto) 0.1 (0.0-0.7) 10^3/uL Baso # (Auto) 0.1 (0.0-0.1) 10^3/uL Abs Immat Gran (auto) 0.04 H (0.00-0.03) 10^3/uL Imm/Tot Granulo (auto) 0.4 (0.0-0.5) % PT 9.9 (9.0-11.6) sec INR 0.93 Sodium 123 L* (136-145) mmol/L Potassium 3.8 (3.5-5.1) mmol/L Chloride 93 L (98-107) mmol/L Carbon Dioxide 19.5 L (21.0-32.0) mmol/L Anion Gap 14.3 BUN 7.0 (7.0-18.0) mg/dL Creatinine 1.17 (0.70-1.30) mg/dL Est GFR ( Amer) >60 (>=60) Est GFR (Non-Af Amer) >60 (>=60) BUN/Creatinine Ratio 6.0 Glucose 91 (74-106) mg/dL Lactate 0.8 (0.4-2.0) mmol/L Calcium 8.5 (8.5-10.1) mg/dL Magnesium 2.2 (1.8-2.4) mg/dL Total Bilirubin 0.4 (0.2-1.0) mg/dL AST 21 (15-37) U/L ALT 12 L (16-63) U/L Alkaline Phosphatase 93 (46-116) U/L Troponin I High Sens 4.4 (4.0-76.1) pg/mL NT-Pro-B Natriuret Pep 162.0 (<=900.0) pg/mL Total Protein 8.0 (6.4-8.2) g/dL Albumin 3.7 (3.4-5.0) g/dL Globulin 4.3 g/dL Albumin/Globulin Ratio 0.9 TSH 92.657 H (0.358-3.740) uIU/mL Free T4 0.16 L (0.76-1.46) ng/dL Free T3 <0.50 L (2.18-3.98) pg/mL Urine Color Lt. yellow (YELLOW) Urine Clarity Clear (CLEAR) Urine pH 6.0 (5.0-9.0) Ur Specific [place] 1.015 (1.005-1.025) Urine Protein Negative (NEG/TRACE) mg/dL Urine Glucose (UA) Negative (NEGATIVE) mg/dL Urine Ketones Trace A (NEGATIVE) mg/dL Urine Occult Blood Negative (NEGATIVE) Urine Nitrite Negative (NEGATIVE) Urine Bilirubin Negative (NEGATIVE) Urine Urobilinogen 0.2 (0.2-1.0) EU/dL Ur Leukocyte Esterase Negative (NEGATIVE) Ur Random Sodium 76 (30-90) mmol/L 09/12/23 Range/Units 19:14 WBC (4.0-11.0) 10^3/uL RBC (4.70-6.10) 10^6/uL Hgb (14.0-18.0) g/dL Hct (42.0-54.0) % MCV (80.0-94.0) fL MCH (25.9-34.0) pg MCHC (29.9-35.2) g/dL RDW (11.0-15.0) % Plt Count (150-450) 10^3/uL MPV (9.5-13.5) fL Neut % (Auto) (43.0-75.0) % Lymph % (Auto) (20.5-60.0) % [place] % (Auto) (1.7-12.0) % Eos % (Auto) (0.9-7.0) % Baso % (Auto) (0.2-2.0) % Neut # (Auto) (1.4-6.5) 10^3/uL Lymph # (Auto) (1.2-3.8) 10^3/uL [place] # (Auto) (0.3-0.8) 10^3/uL Eos # (Auto) (0.0-0.7) 10^3/uL Baso # (Auto) (0.0-0.1) 10^3/uL Abs Immat Gran (auto) (0.00-0.03) 10^3/uL Imm/Tot Granulo (auto) (0.0-0.5) % PT (9.0-11.6) sec INR Sodium (136-145) mmol/L Potassium (3.5-5.1) mmol/L Chloride (98-107) mmol/L Carbon Dioxide (21.0-32.0) mmol/L Anion Gap BUN (7.0-18.0) mg/dL Creatinine (0.70-1.30) mg/dL Est GFR ( Amer) (>=60) Est GFR (Non-Af Amer) (>=60) BUN/Creatinine Ratio Glucose (74-106) mg/dL Lactate (0.4-2.0) mmol/L Calcium (8.5-10.1) mg/dL Magnesium (1.8-2.4) mg/dL Total Bilirubin (0.2-1.0) mg/dL AST (15-37) U/L ALT (16-63) U/L Alkaline Phosphatase (46-116) U/L Troponin I High Sens 4.9 (4.0-76.1) pg/mL NT-Pro-B Natriuret Pep (<=900.0) pg/mL Total Protein (6.4-8.2) g/dL Albumin (3.4-5.0) g/dL Globulin g/dL Albumin/Globulin Ratio TSH (0.358-3.740) uIU/mL Free T4 (0.76-1.46) ng/dL Free T3 (2.18-3.98) pg/mL Urine Color (YELLOW) Urine Clarity (CLEAR) Urine pH (5.0-9.0) Ur Specific [place] (1.005-1.025) Urine Protein (NEG/TRACE) mg/dL Urine Glucose (UA) (NEGATIVE) mg/dL Urine Ketones (NEGATIVE) mg/dL Urine Occult Blood (NEGATIVE) Urine Nitrite (NEGATIVE) Urine Bilirubin (NEGATIVE) Urine Urobilinogen (0.2-1.0) EU/dL Ur Leukocyte Esterase (NEGATIVE) Ur Random Sodium (30-90) mmol/L Imaging Data Chest x-ray: Radiologist's impression: ITS Impressions Chest X-Ray 09/12/23 18:10 IMPRESSION: Unremarkable AP erect portable chest radiograph. Electronically authenticated by: GARETH CHOW Date: 09/12/2023 18:18 Heart Score Total Heart Score Recommendations & Risks:: 4 Discharge Plan Discharge Chief Complaint: Chest Pain Clinical Impression: Chest pain, Acute hyponatremia Patient Disposition: Admitted as Observation Time of Disposition Decision: 19:30 Condition: Good Discharge Date/Time: 09/12/23 20:03
--- OUTSIDE RECORDS SUMMARY | 2023-09-12 17:31 | XMS_ITS | CCD ---
Author Name Unknown Address [address] [place] [address] Organization [facility] Care Team Providers Care Sheriff Deputy Name Role Phone ANAYELI ., DR GLASGOW Attending Unavailable HOY ., [...] SHIVA Love Consulting Unavailabl e REINANIYA, DR SHIAV Love Attending Unavailabl e SCARLET, DR SHIVA [...] ION Referring Unavailable ZACKARY, SARMED Admitting Unavailable GANGWANILIDIA Attending Unavailab le MERZA, NOORALDIN Referring Unavailable DOUG, STEVEN Admitting Unavailable MERZA, NOORALDIN Referring Unavailable HORANISAUNDRAAR Attending Unavailable MERZA, NOORALDIN Referring Unavailable ZACKARY, SARMED Referring Unavailable ELMA, THONG Referring Unavailable GANGMILONILIDIA Referring Unavailab GÉNESIS Leonardo Attending Unavailable Allergies Allergy Classification Reported Allergen(s) Allergy Type Date of Onset Reaction(s) Facility (2 sources) Penicillins; Translations: [PENICILLINS] Drug allergy (disorder) 05-30-2015 [facility] Repository (2 sources) strawberry allergenic extract; Translations: [STRAWBERRY] Drug Allergy 05-13-2016 [facility] Repository Problems Active Problems Problem Classification [...] Translations: [ESSENTIAL PRIMARY HYPERTENSION] Onset: 12-04-2022 Chronic Headache; including migraine (1 source) Headache; including [...] 10-29-2022 Chronic Other aftercare (1 source) Other retirement (current) drug therapy; Translations: [OTH SKILLED NURSING CURRENT DRUG THERAPY] Onset: 12-04-2022 Episodic Other [...] [NICOTINE DEPEND CIGARETTES UNCOMP] Onset: 10-31-2022 Chronic Thyroid disorders (4 sources) Hypothyroidism, unspecified; Translations: [...] unspecified; Translations: [ANEMIA UNSPECIFIED] Onset: 04-19-2022 Episodic Fluid and electrolyte disorders (4 sources) Hypo-osmolality and hyponatremia; Translations: [Dehydration] Onset: 04-18-2022 Episodic Mycoses (1 source) Other specified mycoses; [...] Translations: [PNEUMONIA UNSPECIFIED ORGANISM] Onset: 04-15-2022 Episodic Syncope (2 sources) Syncope and collapse; Translations: [Syncope and collapse] Onset: 04-20-2023 Episodic Unclassified (1 source) LOW BACK PAIN, UNSPECIFIED; Translations: [LOW BACK PAIN, UNSPECIFIED] Onset: 10-27-2022 Unclassified (1 source) COUGH, UNSPECIFIED; Translations: [COUGH, UNSPECIFIED] Onset: 03-23-2022 Unclassified (1 source) CONTACT W/AND (SUSP) EXPOS COVID-19; Translations: [CONTACT W/AND (SUSP) EXPOS COVID-19] Onset: 03-17-2022 Results Test Name Value Interpretation Reference Range Facility Office Visiton 07-17-2023 Follow-up visit [id number] Rehan Poole 1965 M Date Provider Department Center 07/17/2023 GÉNESIS SCHERER CARD [facility] No family history on file Level of Service:22219 ME OFFICE/OUTPATIENT ESTABLISHED MOD MDM 30 MIN [facility] 30on 05-28-2023 30 The patient is Moderately Stable - Low risk of patient condition declining or worsening The patient's goals for the shift include comfort The clinical goals for the shift include VSS Pt denies pain at present and appears to be asleep. CT head and CXR showed no acute processes. Aware of limits and calls for assist approp. Normal [facility] 30 The patient is Moderately Stable - Low risk of patient condition declining or worsening The patient's goals for the shift include comfort The clinical goals for the shift include VSS Normal [facility] APTTon 05-28-2023 ACTIVATED PARTIAL THROMBOPLASTIN TIME IN PPP BY COAGULATION ASSAY 33.8 Seconds Normal 25.0-35.0 [facility] Comment on above: Result Comment: Clin ical significance of the APTT is questionable in the presence of heparin. Performed By: #### L [id number] #### [facility] ([facility]) [address] [place] [address] B-TYPE NATRIURETIC PEPTIDEon 05-28-2023 Natriuretic peptide B (Bld) [Mass/Vol] 76 pg/mL Normal 0-100 [facility] Comment on above: Performed By: #### L [id number] #### [facility] ([facility]) [address] [place] [address] BLOOD CULTUREon 05-28-2023 Bacteria identified Cx Nom (Bld) No growth at [address] [facility] Comment on above: Performed By: #### L [id number] #### [facility] ([facility]) [address] [place] [address] Order Comment: From a different site than #1. Performed By: #### L [id number] #### [facility] ([facility]) [address] [place] [address] CBC WITH AUTO DIFFERENTIALon 05-28-2023 Basophils (Bld) [#/Vol] 0.05 10*3/uL Normal 0.00-0.20 [facility] Comment on above: Performed By: #### L [id number] #### [facility] ([facility]) [address] [place] [address] Basophils/100 WBC (Bld) 0.4 % Normal 0.0-1.0 [facility] Comment on above: Performed By: #### L [id number] #### [facility] ([facility]) [address] [place] [address] Eosinophils (Bld) [#/Vol] 0.02 10*3/uL Normal 0.00-0.50 [facility] Comment on above: Performed By: #### L [id number] #### [facility] [address] [place] [address] Eosinophils/100 WBC (Bld) 0.1 % Normal 0.0-6.0 [facility] Comment on above: Performed By: #### L [id number] #### [facility] ([facility]) [address] [place] [address] Erythrocyte distribution width (RBC) [Ratio] 17.5 % High 11.5-15.0 [facility] Comment on above: Performed By: #### L [id number] #### [facility] ([facility]) [address] [place] [address] ERYTHROCYTE MEAN CORPUSCULAR HEMOGLOBIN CONCENTRATION (G/DL) BY AUTOMATED 33.7 g/dL Normal 32.0-35.0 [facility] Comment on above: Performed By: #### L [id number] #### [facility] ([facility]) [address] [place] [address] Hematocrit (Bld) [Volume fraction] 34.4 % Low 39.0-55.0 [facility] Comment on above: Performed By: #### L [id number] #### [facility] [address] [place] [address] Hemoglobin (Bld) [Mass/Vol] 11.6 g/dL Low 13.0-17.0 [facility] Comment on above: Performed By: #### L [id number] #### [facility] ([facility]) [address] [place] [address] Immature granulocytes (Bld) [#/Vol] 0.16 10*3/uL Normal 0.00-0.20 [facility] Comment on above: Performed By: #### L [id number] #### [facility] ([facility]) [address] [place] [address] Immature granulocytes/100 WBC (Bld) 1.1 % High 0.0-1.0 [facility] Comment on above: Performed By: #### L [id number] #### [facility] [address] [place] [address] Lymphocytes (Bld) [#/Vol] 2.52 10*3/uL Normal 1.20-4.00 [facility] Comment on above: Performed By: #### L [id number] #### [facility] ([facility]) [address] [place] [address] Lymphocytes/100 WBC (Bld) 17.9 % Low 20.0-45.0 [facility] Comment on above: Performed By: #### L [id number] #### [facility] ([facility]) [address] [place] [address] MCH (RBC) [Entitic mass] 33.7 pg High 27.0-33.0 [facility] Comment on above: Performed By: #### L [id number] #### [facility] ([facility]) [address] [place] [address] MCV (RBC) [Entitic vol] 100.0 fL High 82.0-98.0 [facility] Comment on above: Performed By: #### L [id number] #### [facility] ([facility]) [address] [place] [address] Monocytes (Bld) [#/Vol] 1.27 10*3/uL High 0.10-1.00 [facility] Comment on above: Performed By: #### L [id number] #### [facility] ([facility]) [address] [place] [address] Monocytes/100 WBC (Bld) 9.0 % Normal 5.0-12.0 [facility] Comment on above: Performed By: #### L [id number] #### [facility] ([facility]) [address] [place] [address] Neutrophils (Bld) [#/Vol] 10.03 10*3/uL High 1.60-7.60 [facility] Comment on above: Performed By: #### L [id number] #### [facility] [address] [place] [address] Neutrophils/100 WBC (Bld) 71.5 % Normal 40.0-72.0 [facility] Comment on above: Performed By: #### L [id number] #### [facility] ([facility]) [address] [place] [address] NRBC (PER 100 WBCS) BY AUTOMATED COUNT 0.0 % Normal 0 [facility] Comment on above: Performed By: #### L [id number] #### [facility] ([facility]) [address] [place] [address] PLATELETS (10*3/UL) IN BLOOD AUTOMATED COUNT 232 10*3/uL Normal 150-400 [facility] Comment on above: Performed By: #### L [id number] #### [facility] ([facility]) [address] [place] [address] RBC (Bld) [#/Vol] 3.44 10*6/uL Low 4.20-5.70 [facility] Comment on above: Performed By: #### L [id number] #### [facility] ([facility]) [address] [place] [address] WBC (Bld) [#/Vol] 14.05 10*3/uL High 4.00-10.60 [facility] Comment on above: Performed By: #### L [id number] #### [facility] ([facility]) [address] [place] [address] COMPREHENSIVE METABOLIC PANE Dawit 05-28-2023 Albumin [Mass/Vol] 4.2 g/dL Normal 3.5-5.7 [facility] Comment on above: Performed By: #### L [id number] #### [facility] ([facility]) [address] [place] [address] ALP [Catalytic activity/Vol] 95 U/L Normal 34-104 [facility] Comment on above: Performed By: #### L [id number] #### [facility] ([facility] [address] [place] [address] ALT [Catalytic activity/Vol] 18 U/L Normal 7-52 [facility] Comment on above: Performed By: #### L [id number] #### [facility] [address] [place] [address] Anion gap [Moles/Vol] 12 mmol/L Normal 7-20 [facility] Comment on above: Performed By: #### L [id number] #### [facility] [address] [place] [address] AST [Catalytic activity/Vol] 12 U/L Low 13-39 [facility] Comment on above: Performed By: #### L [id number] #### [facility] ([facility]) [address] [place] [address] Bilirubin [Mass/Vol] 0.4 mg/dL Normal 0.3-1.0 [facility] Comment on above: Performed By: #### L [id number] #### [facility] ([facility]) [address] [place] [address] Calcium [Mass/Vol] 9.3 mg/dL Normal 8.6-10.3 [facility] Comment on above: Performed By: #### L [id number] #### [facility] ([facility]) [address] [place] [address] Chloride [Moles/Vol] 106 mmol/L Normal 98-107 [facility] Comment on above: Performed By: #### L [id number] #### [facility] [address] [place] [address] CO2 [Moles/Vol] 19 mmol/L Low 21-[address] [facility] Comment on above: Performed By: #### L [id number] #### [facility] ([facility]) [address] [place] [address] Creatinine [Mass/Vol] 0.82 mg/dL Normal 0.70-1.30 [facility] Comment on above: Performed By: #### L [id number] #### [facility] [address] [place] [address] GLOMERULAR FILTRATION RATE ML/MIN/1.73 SQ M.PREDICTED 101.8 mL/min/1.73m*2 Normal >60.0 [facility] Comment on above: Result Comment: The [facility]???s estimated glomerular filtration rate (eGFR) will [...] individuals. Performed By: #### L [id number] #### [facility] ([facility]) [address] [place] [address] Glucose [Mass/Vol] 96 mg/dL Normal 70-100 [facility] Comment on above: Performed By: #### L [id number] #### [facility] ([facility]) [address] [place] [address] Potassium [Moles/Vol] 3.5 mmol/L Normal 3.5-5.1 [facility] Comment on above: Performed By: #### L [id number] #### [facility] ([facility]) [address] [place] [address] Protein [Mass/Vol] 6.9 g/dL Normal 6.0-8.3 [facility] Comment on above: Performed By: #### L [id number] #### [facility] ([facility]) [address] [place] [address] Sodium [Moles/Vol] 133 mmol/L Low 136-145 [facility] Comment on above: Performed By: #### L [id number] #### [facility] [address] [place] [address] Urea nitrogen [Mass/Vol] 10 mg/dL Normal 7-25 [facility] Comment on above: Performed By: #### L [id number] #### [facility] ([facility]) [address] [place] [address] UREA NITROGEN/CREATININE (MASS RATIO) IN SER/PLAS 12.2 Normal [facility] Comment on above: Performed By: #### L [id number] #### [facility] ([facility]) [address] [place] [address] CONSULTon 05-28-2023 CONSULT -- Attestation signed by [...] History No family history on file. Allergies [place] and Penicillins Medications Medications Prior to Admission [...] the past (more content not included)... Normal [facility] CT HEAD WO IV CONTRASTon CT [...] IMPRESSION: *No acute intracranial findings. Approved by:Adelfo Connellyuon107/28/2022 12:47 AM. I, Araceli Moseley,have reviewed the image(s) and agree with the findings in this report. Electronically signed: Araceli Moseley. Normal [facility] ETHANOLon 05-28-2023 ETHANOL (MG/DL) IN SER/PLAS <10 Normal [facility] Comment on above: Performed By: #### L [id number] #### [facility] ([facility]) [address] [place] [address] ETHANOL CALCULATED (%) Normal [facility] Comment on above: Performed By: #### L [id number] #### [facility] ([facility]) [address] [place] [address] FOLATEon 05-28-2023 FOLATE (NG/ML) IN SER/PLAS 7.00 ng/mL Normal 6.6-1000 [facility] Comment on above: Performed By: #### L [id number] #### [facility] ([facility]) [address] [place] [address] HEMOGLOBIN A1Con 05-28-2023 Glucose [Mass/Vol] 114 mg/dL Normal [facility] Comment on above: Performed By: #### L [id number] #### [facility] ([facility]) [address] [place] [address] HbA1c (Bld) [Mass fraction] 5.6 % Normal 4.0-6.0 [facility] Comment on above: Performed By: #### L [id number] #### [facility] [address] [place] [address] LACTIC ACID WITH 4 HOUR REFL EXon 05-28-2023 LACTATE (MMOL/L) IN SER/PLAS 0.7 mmol/L Normal 0.5-2.2 [facility] Comment on above: Performed By: #### L [id number] #### [facility] [address] [place] [address] LIPID PANELon 05-28-2023 CHOL/HDL 2.7 mg/dL Normal [facility] Comment on above: Performed By: #### L [id number] #### [facility] [address] [place] [address] Cholesterol [Mass/Vol] 115 mg/dL Low 120-200 [facility] Comment on above: Performed By: #### L [id number] #### [facility] ([facility]) [address] [place] [address] Magnesium [Mass/Vol] 72 mg/dL Normal 40-149 [facility] Comment on above: Result Comment: TRIG LYCERIDE REFERENCE RANGE: 20 YEARS AND OLDER CARDIOVASCULAR RISK LESS THAN 150 mg/dL LOW RISK 150 TO 199 mg/dL BORDERLINE RISK 200 mg/dL AND GREATER HIGH RISK Performed By: #### L [id number] #### [facility] ([facility]) [address] [place] [address] Magnesium [Mass/Vol] 58 mg/dL Normal 0-160 [facility] Comment on above: Performed By: #### L [id number] #### [facility] ([facility]) [address] [place] [address] Magnesium [Mass/Vol] 43 mg/dL Normal 23-92 [facility] Comment on above: Performed By: #### L [id number] #### [facility] ([facility]) [address] [place] [address] NON HDL CHOL. (LDL+VLDL) 72 Normal [facility] Comment on above: Performed By: #### L [id number] #### [facility] ([facility]) [address] [place] [address] TOTAL VLDL-C 14 mg/dL Normal 0-[address] [facility] Comment on above: Performed By: #### L [id number] #### [facility] ([facility]) [address] [place] [address] MAGNESIUMon 05-28-2023 Magnesium [Mass/Vol] 1.7 mg/dL Low 1.9-2.7 [facility] Comment on above: Performed By: #### L [id number] #### [facility] ([facility]) [address] [place] [address] PHOSPHORUSon 05-28-2023 Magnesium [Mass/Vol] 3.0 mg/dL Normal 2.5-5.0 [facility] Comment on above: Performed By: #### L [id number] #### [facility] ([facility]) [address] [address] POCT GLUCOSE METER UNSOLICIT ED RESULTSon 05-28-2023 Glucose [Mass/Vol] 97 mg/dL Normal 70-105 [facility] Comment on above: Order Comment: Waive d Testing in the ED is performed under the ED CLIA certificate #[id number]. Result Comment: [email or web address] Performed By: #### L [id number] #### [facility] ([facility]) [address] [place] [address] Glucose [Mass/Vol] 101 mg/dL Normal 70-105 [facility] Comment on above: Order Comment: Waive d Testing in the ED is performed under the ED CLIA certificate #[id number]. Result Comment: [email or web address] Performed By: #### L [id number] #### [facility] ([facility]) [address] [address] PROTIME-INRon 05-28-2023 INR IN PPP BY COAGULATION ASSAY 1.01 Normal 0.90-1.10 [facility] Comment on above: Result Comment: ACCC [...] RANGE. CHEST 1995;108:[id number]. Performed By: #### L [id number] #### [facility] ([facility]) [address] [place] [address] PROTHROMBIN TIME (PT) IN PPP BY COAGULATION ASSAY 13.3 Seconds Normal 12.3-14.8 [facility] Comment on above: Performed By: #### L [id number] #### [facility] [[email or web address] ([facility]) [address] [place] [address] T4, FREEon 05-28-2023 THYROXINE (T4) FREE (NG/DL) IN SER/PLAS 1.90 ng/dL High 0.71-1.[address] [facility] Comment on above: Performed By: #### L [id number] #### [facility] [[email or web address]] ([facility]) [address] [place] [address] TOXICOLOGY PANEL URINEon AMPHETAMINE+METHAMPH ETAMINE SCREEN (PRESENCE) IN URINE Negative Normal Negative [facility] Comment on above: Performed By: #### L [id number] #### [facility] ([facility]) [address] [place] [address] BARBITURATES PRESENCE IN URINE BY SCREEN METHOD Negative Normal Negative [facility] Comment on above: Performed By: #### L [id number] #### [facility] ([facility]) [address] [place] [address] Benzodiazepines Ql (U) Negative Normal Negative [facility] Comment on above: Performed By: #### L [id number] #### [facility] ([facility]) [address] [place] [address] CANNABINOID (PRESENCE) IN URINE BY SCREEN METHOD Negative Normal Negative [facility] Comment on above: Performed By: #### L [id number] #### [facility] [address] [place] [address] Cocaine Ql (U) Negative Normal Negative [facility] Comment on above: Performed By: #### L [id number] #### [facility] ([facility]) [address] [place] [address] METHADONE (PRESENCE) IN URINE BY SCREEN METHOD Negative Normal Negative [facility] Comment on above: Performed By: #### L [id number] #### [facility] [address] [place] [address] OPIATES (PRESENCE) IN URINE BY SCREEN METHOD Negative Normal Negative [facility] Comment on above: Performed By: #### L [id number] #### [facility] [address] [place] [address] PHENCYCLIDINE PRESENCE IN URINE BY SCREEN METHOD Negative Normal Negative [facility] Comment on above: Performed By: #### L [id number] #### [facility] ([facility]) [address] [place] [address] Propoxyphene Screen Ql (U) Negative Normal Negative [facility] Comment on above: Performed By: #### L [id number] #### [facility] ([facility]) [address] [place] [address] TRICYCLIC ANTIDEPRESSANTS (PRESENCE) IN URINE Negative Normal Negative [facility] Comment on above: Performed By: #### L [id number] #### [facility] ([facility]) [address] [place] [address] TROPONIN Ion 05-28-2023 Troponin I.cardiac [Mass/Vol] 0.01 ng/mL Normal 0.00-0.04 [facility] Comment on above: Performed By: #### L [id number] #### [facility] ([facility]) [address] [place] [address] Troponin I.cardiac [Mass/Vol] 0.02 ng/mL Normal 0.00-0.04 [facility] Comment on above: Performed By: #### L [id number] #### [facility] ([facility]) [address] [place] [address] Troponin I.cardiac [Mass/Vol] 0.01 ng/mL Normal 0.00-0.04 [facility] Comment on above: Performed By: #### L [id number] #### [facility] ([facility]) [address] [place] [address] TSH3 REFLEX TO FT4on 023 THYROTROPIN (MIU/L) IN SER/PLAS BY DETECTION LIMIT <= 0.05 MIU/L 0.15 mIU/L Low 0.34-5.60 [facility] Comment on above: Performed By: #### L [id number] #### [facility] ([facility]) [address] [place] [address] URINALYSIS WITH REFLEX CULTU REon 05-28-2023 BILIRUBIN, TOTAL PRESENCE IN URINE Negative Normal Negative [facility] Comment on above: Order Comment: Micro scopics not performed on urines with negative chemical reactions unless requested on original order. Performed By: #### L [id number] #### [facility] ([facility]) [address] [place] [address] Clarity (U) Clear Normal Clear [facility] Comment on above: Order Comment: Micro scopics not performed on urines with negative chemical reactions unless requested on original order. Performed By: #### L [id number] #### [facility] ([facility]) [address] [place] [address] Color (U) Yellow Normal Yellow [facility] Comment on above: Order Comment: Micro scopics not performed on urines with negative chemical reactions unless requested on original order. Performed By: #### L [id number] #### [facility] ([facility]) [address] [place] [address] Glucose (U) [Mass/Vol] Negative Normal Negative [facility] Comment on above: Order Comment: Micro scopics not performed on urines with negative chemical reactions unless requested on original order. Performed By: #### L [id number] #### [facility] ([facility]) [address] [place] [address] HEMOGLOBIN PRESENCE IN URINE Negative Normal Negative [facility] Comment on above: Order Comment: Micro scopics not performed on urines with negative chemical reactions unless requested on original order. Performed By: #### L [id number] #### [facility] ([facility]) [address] [place] [address] Ketones Ql (U) Trace Abnormal Negative [facility] Comment on above: Order Comment: Micro scopics not performed on urines with negative chemical reactions unless requested on original order. Performed By: #### L [id number] #### [facility] ([facility]) [address] [place] [address] LEUKOCYTE ESTERASE PRESENCE IN URINE BY TEST STRIP Negative Normal Negative [facility] Comment on above: Order Comment: Micro scopics not performed on urines with negative chemical reactions unless requested on original order. Performed By: #### L [id number] #### [facility] ([facility]) [address] [place] [address] NITRITE PRESENCE IN URINE Negative Normal Negative [facility] Comment on above: Order Comment: Micro scopics not performed on urines with negative chemical reactions unless requested on original order. Performed By: #### L [id number] #### [facility] ([facility]) [address] [place] [address] pH (U) 6.0 [pH] Normal 5.0-8.0 [facility] Comment on above: Order Comment: Micro scopics not performed on urines with negative chemical reactions unless requested on original order. Performed By: #### L [id number] #### [facility] ([facility]) [address] [place] [address] Protein (U) [Mass/Vol] Negative Normal Negative [facility] Comment on above: Order Comment: Micro scopics not performed on urines with negative chemical reactions unless requested on original order. Performed By: #### L [id number] #### [facility] ([facility]) [address] [place] [address] Specific gravity (U) [Rel density] 1.019 Normal 1.015-1.020 [facility] Comment on above: Order Comment: Micro scopics not performed on urines with negative chemical reactions unless requested on original order. Performed By: #### L [id number] #### [facility] ([facility]) [address] [place] [address] UROBILINOGEN (EU/DL) IN URINE 2.0 EU/dL Abnormal Negative [facility] Comment on above: Order Comment: Micro scopics not performed on urines with negative chemical reactions unless requested on original order. Performed By: #### L [id number] #### [facility] ([facility]) [address] [place] [address] VITAMIN B12on 05-28-2023 Cobalamin (Vitamin B12) [Mass/Vol] 119 pg/mL Low 180-914 [facility] Comment on above: Result Comment: REFE RENCE RANGES: 180-914 pg/mL Normal 145-179 pg/mL Indeterminate <145 pg/mL Deficient Performed By: #### L [id number] #### [facility] ([facility]) [address] [place] [address] Office Visiton 05-18-2023 Follow-up visit [id number] Rehan Poole 1965 M Date Provider Department Center 05/18/2023 [facility] No family history on file Level of Service:01738 ME OFFICE/OUTPATIENT ESTABLISHED MOD MDM 30-39 MIN Reason for Visit and Comments: Follow-up [418075] Normal [facility] 30on 04-24-2023 30 Problem: Pain - Adul t Goal: Verbalizes/displays adequate comfort level or baseline comfort level Outcome: Progressing Problem: Safety - Adult Goal: Free from fall injury Outcome: Progressing Flowsheets (Taken 04/24/2023899) Free from fall injury: Assess patient frequently for physical needs Problem: Discharge Planning Goal: Discharge to home or other facility with appropriate resources Outcome: Progressing Flowsheets (Taken 04/24/2023 09) Discharge to home or other facility with [...] goals for the shift include VSS Normal [facility] 30 The patient is Moderately Stable [...] maintained within prescribed range Outcome: Progressing Normal [facility] BASIC METABOLIC PANELon 10- Anion gap [Moles/Vol] 12 mmol/L Normal -20 [facility] Comment on above: Performed By: #### L [id number] #### [facility] ([facility]) [address] [place] [address] Calcium [Mass/Vol] 9.3 mg/dL Normal 8.6-10.3 [facility] Comment on above: Performed By: #### L [id number] #### [facility] ([facility]) [address] [place] [address] Chloride [Moles/Vol] 106 mmol/L Normal 98-107 [facility] Comment on above: Performed By: #### L [id number] #### [facility] ([facility]) [address] [place] [address] CO2 [Moles/Vol] 21 mmol/L Normal 21-[address] [facility] Comment on above: Performed By: #### L [id number] #### [facility] ([facility]) [address] [place] [address] Creatinine [Mass/Vol] 1.20 mg/dL Normal 0.70-1.30 [facility] Comment on above: Performed By: #### L [id number] #### [facility] ([facility]) [address] [place] [address] GLOMERULAR FILTRATION RATE ML/MIN/1.73 SQ M.PREDICTED 70.1 mL/min/1.73m*2 Normal >60.[address] [facility] Comment on above: Result Comment: The [facility]???s estimated glomerular filtration rate (eGFR) will [...] individuals. Performed By: #### L [id number] #### [facility] ([facility]) [address] [place] [address] Glucose [Mass/Vol] 98 mg/dL Normal 70-100 [facility] Comment on above: Performed By: #### L [id number] #### [facility] ([facility]) [address] [place] [address] Potassium [Moles/Vol] 3.8 mmol/L Normal 3.5-5.1 [facility] Comment on above: Performed By: #### L [id number] #### [facility] ([facility]) [address] [place] [address] Sodium [Moles/Vol] 135 mmol/L Low 136-145 [facility] Comment on above: Performed By: #### L [id number] #### [facility] ([facility]) [address] [place] [address] Urea nitrogen [Mass/Vol] 10 mg/dL Normal 7-25 [facility] Comment on above: Performed By: #### L [id number] #### [facility] ([facility]) [address] [place] [address] UREA NITROGEN/CREATININE (MASS RATIO) IN SER/PLAS 8.3 Normal [facility] Comment on above: Performed By: #### L [id number] #### [facility] ([facility]) [address] [place] [address] CBCon 04-24-2023 Erythrocyte distribution width (RBC) [Ratio] 17.1 % High 11.5-15.0 [facility] Comment on above: Performed By: #### L [id number] #### [facility] ([facility]) [address] [place] [address] ERYTHROCYTE MEAN CORPUSCULAR HEMOGLOBIN CONCENTRATION (G/DL) BY AUTOMATED 33.3 g/dL Normal 32.0-35.0 [facility] Comment on above: Performed By: #### L [id number] #### [facility] ([facility]) [address] [place] [address] Hematocrit (Bld) [Volume fraction] 35.1 % Low 39.0-55.0 [facility] Comment on above: Performed By: #### L [id number] #### [facility] ([facility]) [address] [place] [address] Hemoglobin (Bld) [Mass/Vol] 11.7 g/dL Low 13.0-17.0 [facility] Comment on above: Performed By: #### L [id number] #### [facility] ([facility]) [address] [place] [address] MCH (RBC) [Entitic mass] 32.7 pg Normal 27.0-33.0 [facility] Comment on above: Performed By: #### L [id number] #### [facility] [address] [place] [place] [address] MCV (RBC) [Entitic vol] 98.0 fL Normal 82.0-98.0 [facility] Comment on above: Performed By: #### L [id number] #### [facility] ([facility]) [address] [place] [address] PLATELETS (10*3/UL) IN BLOOD AUTOMATED COUNT 216 10*3/uL Normal 150-400 [facility] Comment on above: Performed By: #### L [id number] #### [facility] ([facility]) [address] [place] [place] [address] RBC (Bld) [#/Vol] 3.58 10*6/uL Low 4.20-5.70 [facility] Comment on above: Performed By: #### L [id number] #### [facility] ([facility]) [address] [place] [address] WBC (Bld) [#/Vol] 11.41 10*3/uL High 4.00-10.60 [facility] Comment on above: Performed By: #### L [id number] #### [facility] ([facility]) [address] [place] [address] DSon 04-24-2023 DS Admission Admitted 04/20/2023 for [...] Medications These medications were sent to [facility] - [place], [place] - [address] [place] [address] [place] [address], [facility] [address] hydrocortisone 10 mg tablet levothyroxine 200 mcg tablet metoprolol tartrate 25 mg tablet Activity Patient currently has no discharge activity orders Diet Patient currently has no discharge diet orders Allergies [place] and Penicillins Hospital Course Rehan Poole is an 58 y.o. male who came from home with past medical history of hypertension, migraine headaches, seizure, neuropathy, history of PFO presented to [facility] as a transfer Concern for [...] hydrocortisone. Case was discussed with endocrinology at [facility] for potential transfer. Advised to change [...] CO2 19 (more content not included)... Normal [facility] MAGNESIUMon 04-24-2023 Magnesium [Mass/Vol] 1.9 mg/dL Normal 1.9-2.7 [facility] Comment on above: Performed By: #### L [id number] #### [facility] ([facility]) [address] [place] [address] 30on 04-23-2023 30 The patient is Moderately Stable - Low risk of patient condition declining or worsening The patient's goals for the shift include comfort/rest The clinical goals for the shift include VSS Over the shift, the patient did not make progress toward the following goals. Barriers to progression include hypothyroidism. Recommendations to address these barriers include synthroid. Normal [facility] 30 The patient is Moderately Stable [...] and behaviors that affect risk of falls [place] fall precautions as indicated by assessment Educate [...] and prevent overall improvement and discharge Normal [facility] BASIC METABOLIC PANELon 10-0 Anion gap [Moles/Vol] 12 mmol/L Normal - [facility] Comment on above: Performed By: #### L [id number] #### [facility] ([facility] [address] [place] [address] Calcium [Mass/Vol] 9.3 mg/dL Normal 8.6-10.3 [facility] Comment on above: Performed By: #### L [id number] #### [facility] [address] [place] [address] Chloride [Moles/Vol] 104 mmol/L Normal 98-107 [facility] Comment on above: Performed By: #### L [id number] #### [facility] ([facility]) [address] [place] [address] CO2 [Moles/Vol] 18 mmol/L Low 21-[address] [facility] Comment on above: Performed By: #### L [id number] #### [facility] ([facility]) [address] [place] [address] Creatinine [Mass/Vol] 1.12 mg/dL Normal 0.70-1.30 [facility] Comment on above: Performed By: #### L [id number] #### [facility] ([facility]) [address] [place] [address] GLOMERULAR FILTRATION RATE ML/MIN/1.73 SQ M.PREDICTED 76.1 mL/min/1.73m*2 Normal >60.[address] [facility] Comment on above: Result Comment: The [facility]???s estimated glomerular filtration rate (eGFR) will [...] individuals. Performed By: #### L [id number] #### [facility] [address] [place] [address] Glucose [Mass/Vol] 139 mg/dL High 70-100 [facility] Comment on above: Performed By: #### L [id number] #### [facility] ([facility]) [address] [place] [address] Potassium [Moles/Vol] 4.2 mmol/L Normal 3.5-5.1 [facility] Comment on above: Performed By: #### L [id number] #### [facility] ([facility]) [address] [place] [address] Sodium [Moles/Vol] 130 mmol/L Low 136-145 [facility] Comment on above: Performed By: #### L [id number] #### [facility] ([facility]) [address] [place] [address] Urea nitrogen [Mass/Vol] 11 mg/dL Normal 7-25 [facility] Comment on above: Performed By: #### L [id number] #### [facility] ([facility]) [address] [place] [address] UREA NITROGEN/CREATININE (MASS RATIO) IN SER/PLAS 9.8 Normal [facility] Comment on above: Performed By: #### L [id number] #### [facility] ([facility]) [address] [place] [address] CBCon 04-23-2023 Erythrocyte distribution width (RBC) [Ratio] 17.0 % High 11.5-15.0 [facility] Comment on above: Performed By: #### L [id number] #### [facility] ([facility]) [address] [place] [address] ERYTHROCYTE MEAN CORPUSCULAR HEMOGLOBIN CONCENTRATION (G/DL) BY AUTOMATED 32.7 g/dL Normal 32.0-35.0 [facility] Comment on above: Performed By: #### L [id number] #### [facility] ([facility]) [address] [place] [address] Hematocrit (Bld) [Volume fraction] 40.4 % Normal 39.0-55.0 [facility] Comment on above: Performed By: #### L [id number] #### [facility] ([facility]) [address] [place] [address] Hemoglobin (Bld) [Mass/Vol] 13.2 g/dL Normal 13.0-17.0 [facility] Comment on above: Performed By: #### L [id number] #### [facility] ([facility]) [address] [place] [address] MCH (RBC) [Entitic mass] 32.8 pg Normal 27.0-33.0 [facility] Comment on above: Performed By: #### L [id number] #### [facility] ([facility]) [address] [place] [address] MCV (RBC) [Entitic vol] 100.5 fL High 82.0-98.0 [facility] Comment on above: Performed By: #### L [id number] #### [facility] ([facility]) [address] [place] [address] PLATELETS (10*3/UL) IN BLOOD AUTOMATED COUNT 198 10*3/uL Normal 150-400 [facility] Comment on above: Performed By: #### L [id number] #### [facility] ([facility]) [address] [place] [address] RBC (Bld) [#/Vol] 4.02 10*6/uL Low 4.20-5.70 [facility] Comment on above: Performed By: #### L [id number] #### [facility] ([facility]) [address] [place] [address] WBC (Bld) [#/Vol] 8.96 10*3/uL Normal 4.00-10.60 [facility] Comment on above: Performed By: #### L [id number] #### [facility] ([facility]) [address] [place] [address] MAGNESIUMon 04-23-2023 Magnesium [Mass/Vol] 2.1 mg/dL Normal 1.9-2.7 [facility] Comment on above: Performed By: #### L [id number] #### [facility] ([facility]) [address] [place] [address] T4, FREEon 04-23-2023 THYROXINE (T4) FREE (NG/DL) IN SER/PLAS 0.59 ng/dL Low 0.71-1.[address] [facility] Comment on above: Performed By: #### L [id number] #### [facility] ([facility]) [address] [place] [address] TSH3 REFLEX TO FT4on 023 THYROTROPIN (MIU/L) IN SER/PLAS BY DETECTION LIMIT <= 0.05 MIU/L 45.61 mIU/L High 0.34-5.60 [facility] Comment on above: Performed By: #### L [id number] #### [facility] [address] [address] 30on 04-22-2023 30 The patient is Moderately [...] with appropriate resources Outcome: Progressing Flowsheets (Taken 04/22/2023 0845) Discharge to home or other facility with appropriate resources: Identify barriers to discharge with patient and caregiver Problem: Chronic Conditions and Co-morbidities Goal: Patient's chronic conditions and co-morbidity symptoms are monitored and maintained or improved Outcome: Progressing Flowsheets (Taken 04/22/2023 0845) Care Plan - Patient's Chronic Conditions and Co-Morbidity Symptoms are Monitored and Maintained or Improved: Monitor and assess patient's chronic conditions and comorbid symptoms for stability, deterioration, or improvement Problem: Neurosensory - Adult Goal: Achieves stable or improved neurological status Outcome: Progressing Flowsheets (Taken 04/22/2023 0845) Achieves stable or improved neurological status: Assess [...] range: Monitor blood glucose as ordered Normal [facility] ACTHon 04-22-2023 ACTH (ADRENOCORTICOTROPHI C HORMONE) 7 pg/mL Normal 7-69 [facility] Comment on above: Result Comment: Test Performed by [email or web address] [address] [place], [place] [id number] - [email or web address] 04/23/2023 16:24 Performed By: #### L [id number] #### [facility] ([facility]) [address] [place] [address] BASIC METABOLIC PANELon 10-0 Anion gap [Moles/Vol] 12 mmol/L Normal 7-20 [facility] Comment on above: Performed By: #### L [id number] #### [facility] ([facility]) [address] [place] [address] Calcium [Mass/Vol] 8.7 mg/dL Normal 8.6-10.3 [facility] Comment on above: Performed By: #### L [id number] #### [facility] ([facility]) [address] [place] [address] Chloride [Moles/Vol] 102 mmol/L Normal 98-107 [facility] Comment on above: Performed By: #### L [id number] #### [facility] ([facility]) [address] [place] [address] CO2 [Moles/Vol] 19 mmol/L Low 21-[address] [facility] Comment on above: Performed By: #### L [id number] #### [facility] [address] [place] [address] Creatinine [Mass/Vol] 1.18 mg/dL Normal 0.70-1.30 [facility] Comment on above: Performed By: #### L [id number] #### [facility] ([facility]) [address] [place] [address] GLOMERULAR FILTRATION RATE ML/MIN/1.73 SQ M.PREDICTED 71.5 mL/min/1.73m*2 Normal >60.[address] [facility] Comment on above: Result Comment: The [facility]???s estimated glomerular filtration rate (eGFR) will [...] individuals. Performed By: #### L [id number] #### [facility] [address] [place] [address] Glucose [Mass/Vol] 105 mg/dL High 70-100 [facility] Comment on above: Performed By: #### L [id number] #### [facility] ([facility]) [address] [place] [address] Potassium [Moles/Vol] 3.1 mmol/L Low 3.5-5.1 [facility] Comment on above: Performed By: #### L [id number] #### [facility] ([facility]) [address] [place] [address] Sodium [Moles/Vol] 130 mmol/L Low 136-145 [facility] Comment on above: Performed By: #### L [id number] #### [facility] ([facility]) [address] [place] [address] Urea nitrogen [Mass/Vol] 13 mg/dL Normal 7-25 [facility] Comment on above: Performed By: #### L [id number] #### [facility] ([facility]) [address] [place] [address] UREA NITROGEN/CREATININE (MASS RATIO) IN SER/PLAS 11.0 Normal [facility] Comment on above: Performed By: #### L [id number] #### [facility] ([facility]) [address] [place] [address] CBCon 04-22-2023 Erythrocyte distribution width (RBC) [Ratio] 16.8 % High 11.5-15.0 [facility] Comment on above: Performed By: #### L [id number] #### [facility] ([facility]) [address] [place] [address] ERYTHROCYTE MEAN CORPUSCULAR HEMOGLOBIN CONCENTRATION (G/DL) BY AUTOMATED 33.3 g/dL Normal 32.0-35.0 [facility] Comment on above: Performed By: #### L [id number] #### [facility] ([facility]) [address] [place] [place] [address] Hematocrit (Bld) [Volume fraction] 37.5 % Low 39.0-55.0 [facility] Comment on above: Performed By: #### L [id number] #### [facility] ([facility]) [address] [place] [address] Hemoglobin (Bld) [Mass/Vol] 12.5 g/dL Low 13.0-17.0 [facility] Comment on above: Performed By: #### L [id number] #### [facility] ([facility]) [address] [place] [address] MCH (RBC) [Entitic mass] 32.7 pg Normal 27.0-33.0 [facility] Comment on above: Performed By: #### L [id number] #### [facility] ([facility]) [address] [place] [address] MCV (RBC) [Entitic vol] 98.2 fL High 82.0-98.0 [facility] Comment on above: Performed By: #### L [id number] #### [facility] ([facility]) [address] [place] [address] PLATELETS (10*3/UL) IN BLOOD AUTOMATED COUNT 188 10*3/uL Normal 150-400 [facility] Comment on above: Performed By: #### L [id number] #### [facility] ([facility]) [address] [place] [address] RBC (Bld) [#/Vol] 3.82 10*6/uL Low 4.20-5.70 [facility] Comment on above: Performed By: #### L [id number] #### [facility] ([facility]) [address] [place] [address] WBC (Bld) [#/Vol] 8.42 10*3/uL Normal 4.00-10.60 [facility] Comment on above: Performed By: #### L [id number] #### [facility] ([facility]) [address] [place] [address] CORTISOLon 04-22-2023 CORTISOL (UG/DL) IN SER/PLAS 9.8 ug/dL High 0-9 [facility] Comment on above: Order Comment: 60 mi n draw Performed By: #### L [id number] #### [facility] [address] [place] [address] CORTISOL (UG/DL) IN SER/PLAS 8.3 ug/dL Normal 0-9 [facility] Comment on above: Order Comment: Obtai n 30min after cosyntropin injection. Performed By: #### L [id number] #### [facility] [address] [place] [address] CORTISOL (UG/DL) IN SER/PLAS 1.8 ug/dL Low 6-23 [facility] Comment on above: Performed By: #### L [id number] #### [facility] ([facility]) [address] [place] [address] MAGNESIUMon 04-22-2023 Magnesium [Mass/Vol] 1.7 mg/dL Low 1.9-2.7 [facility] Comment on above: Performed By: #### L [id number] #### [facility] ([facility]) [address] [place] [address] NURSNOTEon 04-22-2023 NURSNOTE Cortisol lab draw to be collected at 1305; pt difficult draw. X 2 attempts failed in right hand and left upper forearm. Successful draw at 1320 in right upper arm. Specimen sent to lab. Pt tolerated procedure without difficulty. Call light at patient's side and pt denies further needs at this time. Normal [facility] 30on 04-21-2023 30 Problem: Pain - [...] for the shift include pain control/safety Normal [facility] BASIC METABOLIC PANELon 10-0 Anion gap [Moles/Vol] 13 mmol/L Normal - [facility] Comment on above: Performed By: #### L [id number] #### [facility] ([facility]) [address] [place] [address] Calcium [Mass/Vol] 9.0 mg/dL Normal 8.6-10.3 [facility] Comment on above: Performed By: #### L [id number] #### [facility] [address] [place] [address] Chloride [Moles/Vol] 102 mmol/L Normal 98-107 [facility] Comment on above: Performed By: #### L [id number] #### [facility] ([facility]) [address] [place] [address] CO2 [Moles/Vol] 18 mmol/L Low - [facility] Comment on above: Performed By: #### L [id number] #### [facility] ([facility]) [address] [place] [address] Creatinine [Mass/Vol] 1.18 mg/dL Normal 0.70-1.30 [facility] Comment on above: Performed By: #### L [id number] #### [facility] ([facility]) [address] [place] [address] GLOMERULAR FILTRATION RATE ML/MIN/1.73 SQ M.PREDICTED 71.5 mL/min/1.73m*2 Normal >60.[address] [facility] Comment on above: Result Comment: The [facility]???s estimated glomerular filtration rate (eGFR) will [...] individuals. Performed By: #### L [id number] #### [facility] ([facility]) [address] [place] [address] Glucose [Mass/Vol] 88 mg/dL Normal 70-100 [facility] Comment on above: Performed By: #### L [id number] #### [facility] ([facility]) [address] [place] [address] Potassium [Moles/Vol] 3.7 mmol/L Normal 3.5-5.1 [facility] Comment on above: Performed By: #### L [id number] #### [facility] ([facility]) [address] [place] [address] Sodium [Moles/Vol] 129 mmol/L Low 136-145 [facility] Comment on above: Performed By: #### L [id number] #### [facility] ([facility]) [address] [place] [address] Urea nitrogen [Mass/Vol] 12 mg/dL Normal 7-25 [facility] Comment on above: Performed By: #### L [id number] #### [facility] ([facility]) [address] [place] [address] UREA NITROGEN/CREATININE (MASS RATIO) IN SER/PLAS 10.2 Normal [facility] Comment on above: Performed By: #### L [id number] #### [facility] ([facility]) [address] [place] [address] CBCon 04-21-2023 Erythrocyte distribution width (RBC) [Ratio] 16.6 % High 11.5-15.0 [facility] Comment on above: Performed By: #### L [id number] #### [facility] ([facility]) [address] [place] [address] ERYTHROCYTE MEAN CORPUSCULAR HEMOGLOBIN CONCENTRATION (G/DL) BY AUTOMATED 34.5 g/dL Normal 32.0-35.0 [facility] Comment on above: Performed By: #### L [id number] #### [facility] [address] [place] [address] Hematocrit (Bld) [Volume fraction] 39.7 % Normal 39.0-55.0 [facility] Comment on above: Performed By: #### L [id number] #### [facility] ([facility]) [address] [place] [address] Hemoglobin (Bld) [Mass/Vol] 13.7 g/dL Normal 13.0-17.0 [facility] Comment on above: Performed By: #### L [id number] #### [facility] ([facility]) [address] [place] [address] MCH (RBC) [Entitic mass] 33.4 pg High 27.0-33.0 [facility] Comment on above: Performed By: #### L [id number] #### [facility] ([facility]) [address] [place] [address] MCV (RBC) [Entitic vol] 96.8 fL Normal 82.0-98.0 [facility] Comment on above: Performed By: #### L [id number] #### [facility] ([facility]) [address] [place] [address] PLATELETS (10*3/UL) IN BLOOD AUTOMATED COUNT 179 10*3/uL Normal 150-400 [facility] Comment on above: Performed By: #### L [id number] #### [facility] ([facility]) [address] [place] [address] RBC (Bld) [#/Vol] 4.10 10*6/uL Low 4.20-5.70 [facility] Comment on above: Performed By: #### L [id number] #### [facility] ([facility]) [address] [place] [address] WBC (Bld) [#/Vol] 8.95 10*3/uL Normal 4.00-10.60 [facility] Comment on above: Performed By: #### L [id number] #### [facility] ([facility]) [address] [place] [address] CORTISOLon 04-21-2023 CORTISOL (UG/DL) IN SER/PLAS 1.8 ug/dL Low 6-23 [facility] Comment on above: Performed By: #### L [id number] #### [facility] ([facility]) [address] [place] [address] CREATININE, URINE, RANDOMon 04-21-2023 Creatinine (U) [Mass/Vol] 94.0 mg/dL Normal 26-299 [facility] Comment on above: Performed By: #### L [id number] #### [facility] ([facility]) [address] [place] [address] MAGNESIUMon 04-21-2023 Magnesium [Mass/Vol] 1.8 mg/dL Low 1.9-2.7 [facility] Comment on above: Performed By: #### L [id number] #### [facility] ([facility]) [address] [place] [address] NURSNOTEon 04-21-[address] Maeve baca of TSH 188.4, sodium 129, and creatinine 1.33. She stated sodium and creatinine are improving and also pt will need IV synthroid replacement and she will leave it to primary to replace but told travel writer to still give oral synthroid in AM as scheduled. Normal [facility] SODIUM, URINE, RANDOMon 10-0 Sodium (U) [Moles/Vol] 33 mmol/L Normal [facility] Comment on above: Performed By: #### L [id number] #### [facility] ([facility]) [address] [place] [address] T3, FREEon 04-21-2023 TRIIODOTHYRONINE (T3) FREE (PG/ML) IN SER/PLAS 1.9 pg/mL Low 2.5-3.9 [facility] Comment on above: Performed By: #### L [id number] #### [facility] ([facility]) [address] [place] [address] URINALYSISon 04-21-2023 BILIRUBIN, TOTAL PRESENCE IN URINE Negative Normal Negative [facility] Comment on above: Order Comment: Micro scopics not performed on urines with negative chemical reactions unless requested on original order. Performed By: #### L [id number] #### [facility] ([facility]) [address] [place] [address] Clarity (U) Clear Normal Clear [facility] Comment on above: Order Comment: Micro scopics not performed on urines with negative chemical reactions unless requested on original order. Performed By: #### L [id number] #### [facility] ([facility]) [address] [place] [address] Color (U) Yellow Normal Yellow [facility] Comment on above: Order Comment: Micro scopics not performed on urines with negative chemical reactions unless requested on original order. Performed By: #### L [id number] #### [facility] ([facility]) [address] [place] [address] Glucose (U) [Mass/Vol] Negative Normal Negative [facility] Comment on above: Order Comment: Micro scopics not performed on urines with negative chemical reactions unless requested on original order. Performed By: #### L [id number] #### [facility] ([facility]) [address] [place] [address] HEMOGLOBIN PRESENCE IN URINE Negative Normal Negative [facility] Comment on above: Order Comment: Micro scopics not performed on urines with negative chemical reactions unless requested on original order. Performed By: #### L [id number] #### [facility] ([facility]) [address] [place] [address] Ketones Ql (U) Trace Abnormal Negative [facility] Comment on above: Order Comment: Micro scopics not performed on urines with negative chemical reactions unless requested on original order. Performed By: #### L [id number] #### [facility] ([facility]) [address] [place] [address] LEUKOCYTE ESTERASE PRESENCE IN URINE BY TEST STRIP Negative Normal Negative [facility] Comment on above: Order Comment: Micro scopics not performed on urines with negative chemical reactions unless requested on original order. Performed By: #### L [id number] #### [facility] ([facility]) [address] [place] [address] NITRITE PRESENCE IN URINE Negative Normal Negative [facility] Comment on above: Order Comment: Micro scopics not performed on urines with negative chemical reactions unless requested on original order. Performed By: #### L [id number] #### [facility] ([facility]) [address] [place] [address] pH (U) 5.0 [pH] Normal 5.0-8.0 [facility] Comment on above: Order Comment: Micro scopics not performed on urines with negative chemical reactions unless requested on original order. Performed By: #### L [id number] #### [facility] ([facility]) [address] [place] [address] Protein (U) [Mass/Vol] Negative Normal Negative [facility] Comment on above: Order Comment: Micro scopics not performed on urines with negative chemical reactions unless requested on original order. Performed By: #### L [id number] #### [facility] ([facility]) [address] [place] [address] Specific gravity (U) [Rel density] 1.011 Low 1.015-1.020 [facility] Comment on above: Order Comment: Micro scopics not performed on urines with negative chemical reactions unless requested on original order. Performed By: #### L [id number] #### [facility] ([facility]) [address] [place] [address] B-TYPE NATRIURETIC PEPTIDEon 04-20-2023 Natriuretic peptide B (Bld) [Mass/Vol] 17 pg/mL Normal 0-100 [facility] Comment on above: Performed By: #### L [id number] #### [facility] ([facility]) [address] [place] [address] CBC WITH AUTO DIFFERENTIALon 04-20-2023 Basophils (Bld) [#/Vol] 0.08 10*3/uL Normal 0.00-0.20 [facility] Comment on above: Performed By: #### L [id number] #### [facility] ([facility]) [address] [place] [address] Basophils/100 WBC (Bld) 0.8 % Normal 0.0-1.0 [facility] Comment on above: Performed By: #### L [id number] #### [facility] ([facility]) [address] [address] Eosinophils (Bld) [#/Vol] 0.11 10*3/uL Normal 0.00-0.50 [facility] Comment on above: Performed By: #### L [id number] #### [facility] ([facility]) [address] [place] [address] Eosinophils/100 WBC (Bld) 1.2 % Normal 0.0-6.0 [facility] Comment on above: Performed By: #### L [id number] #### [facility] [address] [place] [address] Erythrocyte distribution width (RBC) [Ratio] 16.5 % High 11.5-15.0 [facility] Comment on above: Performed By: #### L [id number] #### [facility] [address] [place] [address] ERYTHROCYTE MEAN CORPUSCULAR HEMOGLOBIN CONCENTRATION (G/DL) BY AUTOMATED 33.5 g/dL Normal 32.0-35.0 [facility] Comment on above: Performed By: #### L [id number] #### [facility] ([facility]) [address] [place] [address] Hematocrit (Bld) [Volume fraction] 42.7 % Normal 39.0-55.0 [facility] Comment on above: Performed By: #### L [id number] #### [facility] ([facility]) [address] [place] [address] Hemoglobin (Bld) [Mass/Vol] 14.3 g/dL Normal 13.0-17.0 [facility] Comment on above: Performed By: #### L [id number] #### [facility] ([facility]) [address] [place] [address] Immature granulocytes (Bld) [#/Vol] 0.11 10*3/uL Normal 0.00-0.20 [facility] Comment on above: Performed By: #### L [id number] #### [facility] ([facility]) [address] [place] [place] [address] Immature granulocytes/100 WBC (Bld) 1.2 % High 0.0-1.0 [facility] Comment on above: Performed By: #### L [id number] #### [facility] [address] [place] [address] Lymphocytes (Bld) [#/Vol] 3.02 10*3/uL Normal 1.20-4.00 [facility] Comment on above: Performed By: #### L [id number] #### [facility] ([facility]) [address] [place] [address] Lymphocytes/100 WBC (Bld) 32.0 % Normal 20.0-45.0 [facility] Comment on above: Performed By: #### L [id number] #### [facility] ([facility]) [address] [place] [address] MCH (RBC) [Entitic mass] 32.5 pg Normal 27.0-33.0 [facility] Comment on above: Performed By: #### L [id number] #### [facility] ([facility]) [address] [place] [place] [address] MCV (RBC) [Entitic vol] 97.0 fL Normal 82.0-98.0 [facility] Comment on above: Performed By: #### L [id number] #### [facility] ([facility]) [address] [address] Monocytes (Bld) [#/Vol] 0.31 10*3/uL Normal 0.10-1.00 [facility] Comment on above: Performed By: #### L [id number] #### [facility] [address] [place] [address] Monocytes/100 WBC (Bld) 3.3 % Low 5.0-12.0 [facility] Comment on above: Performed By: #### L [id number] #### [facility] ([facility]) [address] [place] [address] Neutrophils (Bld) [#/Vol] 5.81 10*3/uL Normal 1.60-7.60 [facility] Comment on above: Performed By: #### L [id number] #### [facility] ([facility]) [address] [place] [address] Neutrophils/100 WBC (Bld) 61.5 % Normal 40.0-72.0 [facility] Comment on above: Performed By: #### L [id number] #### [facility] ([facility]) [address] [place] [address] NRBC (PER 100 WBCS) BY AUTOMATED COUNT 0.0 % Normal 0 [facility] Comment on above: Performed By: #### L [id number] #### [facility] ([facility]) [address] [place] [address] PLATELETS (10*3/UL) IN BLOOD AUTOMATED COUNT 212 10*3/uL Normal 150-400 [facility] Comment on above: Performed By: #### L [id number] #### [facility] ([facility]) [address] [place] [address] RBC (Bld) [#/Vol] 4.40 10*6/uL Normal 4.20-5.70 [facility] Comment on above: Performed By: #### L [id number] #### [facility] ([facility]) [address] [place] [address] WBC (Bld) [#/Vol] 9.44 10*3/uL Normal 4.00-10.60 [facility] Comment on above: Performed By: #### L [id number] #### [facility] [address] [place] [address] COMPREHENSIVE METABOLIC PANE Dawit 04-20-2023 Albumin [Mass/Vol] 5.1 g/dL Normal 3.5-5.7 [facility] Comment on above: Performed By: #### L [id number] #### [facility] ([facility]) [address] [place] [address] ALP [Catalytic activity/Vol] 48 U/L Normal 34-104 [facility] Comment on above: Performed By: #### L [id number] #### [facility] [address] [place] [address] ALT [Catalytic activity/Vol] 8 U/L Normal 7-52 [facility] Comment on above: Performed By: #### L [id number] #### [facility] [address] [place] [address] Anion gap [Moles/Vol] 18 mmol/L Normal 7-20 [facility] Comment on above: Performed By: #### L [id number] #### [facility] [address] [place] [address] AST [Catalytic activity/Vol] 12 U/L Low 13-39 [facility] Comment on above: Performed By: #### L [id number] #### [facility] [address] [place] [address] Bilirubin [Mass/Vol] 0.6 mg/dL Normal 0.3-1.0 [facility] Comment on above: Performed By: #### L [id number] #### [facility] [address] [place] [address] Calcium [Mass/Vol] 9.9 mg/dL Normal 8.6-10.3 [facility] Comment on above: Performed By: #### L [id number] #### [facility] [address] [place] [address] Chloride [Moles/Vol] 96 mmol/L Low 98-107 [facility] Comment on above: Performed By: #### L [id number] #### [facility] [address] [place] [address] CO2 [Moles/Vol] 19 mmol/L Low 21-[address] [facility] Comment on above: Performed By: #### L [id number] #### [facility] ([facility]) [address] [place] [address] Creatinine [Mass/Vol] 1.33 mg/dL High 0.70-1.30 [facility] Comment on above: Performed By: #### L [id number] #### [facility] ([facility]) [address] [place] [address] GLOMERULAR FILTRATION RATE ML/MIN/1.73 SQ M.PREDICTED 62.0 mL/min/1.73m*2 Normal >60.[address] [facility] Comment on above: Result Comment: The [facility]???s estimated glomerular filtration rate (eGFR) will [...] group of individuals. Performed By: #### L [id number] #### [facility] ([facility]) [address] [place] [address] Glucose [Mass/Vol] 75 mg/dL Normal 70-100 [facility] Comment on above: Performed By: #### L [id number] #### [facility] ([facility]) [address] [place] [address] Potassium [Moles/Vol] 3.6 mmol/L Normal 3.5-5.1 [facility] Comment on above: Performed By: #### L [id number] #### [facility] [address] [place] [address] Protein [Mass/Vol] 8.3 g/dL Normal 6.0-8.3 [facility] Comment on above: Performed By: #### L [id number] #### [facility] ([facility]) [address] [place] [address] Sodium [Moles/Vol] 129 mmol/L Low 136-145 [facility] Comment on above: Performed By: #### L [id number] #### [facility] ([facility]) [address] [place] [address] Urea nitrogen [Mass/Vol] 10 mg/dL Normal 7-25 [facility] Comment on above: Performed By: #### L [id number] #### [facility] ([facility]) [address] [place] [address] UREA NITROGEN/CREATININE (MASS RATIO) IN SER/PLAS 7.5 Normal [facility] Comment on above: Performed By: #### L [id number] #### [facility] ([facility]) [address] [place] [address] CONSULTon 04-20-2023 CONSULT -- Attestation signed by [...] came [facility] a [facility] due to concern for mobitz [...] History No family history on file. Allergies [place] and Penicillins Medications (Not in a hospital [...] Value Ventricular Rate 59 Atrial Rate 59 ME Interval 132 QRS DURATION 86 QT Interval 430 QTC CALCULATION(BAZETT) 425 P Euclid 43 R-Euclid -12 T Wave [place] 73 Impression Sinus bradycardia Low voltage QRS [...] will continue to follow. Mireille Gilbert MD Director Marketing Communications PGY-4 [facility] Pager # [phone] Normal [facility] MAGNESIUMon 04-20-2023 Magnesium [Mass/Vol] 1.9 mg/dL Normal 1.9-2.7 [facility] Comment on above: Performed By: #### L [id number] #### [facility] ([facility]) [address] [place] [address] NURSNOTEon 04-20-2023 NURSNOTE Report called to BRISEYDA Noble Normal [facility] Orders Onlyon 04-20-2023 Orders Only [id number] Rehan Poole 1965 M Date Provider Department Center 04/20/2023 BY[facility] BRANTLEY [facility] [place] HeartVAS No family history on file Normal [facility] T4, FREEon 04-20-2023 THYROXINE (T4) FREE (NG/DL) IN SER/PLAS <0.25 Low 0.71-1.[address] [facility] Comment on above: Performed By: #### L [id number] #### [facility] ([facility]) [address] [place] [address] TROPONIN Ion 04-20-2023 Troponin I.cardiac [Mass/Vol] 0.00 ng/mL Normal 0.00-0.04 [facility] Comment on above: Performed By: #### L [id number] #### [facility] ([facility]) [address] [place] [address] TSH3 REFLEX TO FT4on 023 THYROTROPIN (MIU/L) IN SER/PLAS BY DETECTION LIMIT <= 0.05 MIU/L 188.64 mIU/L Critically high 0.34-5.60 [facility] Comment on above: Performed By: #### L [id number] #### [facility] ([facility]) [address] [place] [address] CBC AUTO DIFFon 11-28-2022 BASO # 0.0 103/ul Normal 0.0-0.1 [facility] Comment on above: Performed By: #### B SOCIAL MEDIA DIRECTOR, T7, CMP, TSH #### [facility] [address] [place] [address] Dr. Get Whitten Basophils/100 WBC (Bld) 0.4 % Normal 0.2-2.0 [facility] Comment on above: Performed By: #### B SOCIAL MEDIA DIRECTOR, T7, CMP, TSH #### [facility] [address] [place] [address] Dr. Get Whitten EO # 0.1 103/ul Normal 0.0-0.7 [facility] Comment on above: Performed By: #### B SOCIAL MEDIA DIRECTOR, T7, CMP, TSH #### [facility] [address] [place] [address] Dr. Get Whitten Eosinophils/100 WBC (Bld) 0.5 % Critically low 0.9-7.0 [facility] Comment on above: Performed By: #### B SOCIAL MEDIA DIRECTOR, T7, CMP, TSH #### [facility] [address] [place] [address] Dr. Get Whitten Erythrocyte distribution width (RBC) [Ratio] 18.6 % Critically high 11.0-15.0 [facility] Comment on above: Performed By: #### B SOCIAL MEDIA DIRECTOR, T7, CMP, TSH #### [facility] [address] [place] [address] Dr. Get Whitten Hematocrit (Bld) [Volume fraction] 33.3 % Critically low 42.0-54.0 [facility] Comment on above: Performed By: #### B SOCIAL MEDIA DIRECTOR, T7, CMP, TSH #### [facility] [address] [place] [address] Dr. Get Whitten Hemoglobin (Bld) [Mass/Vol] 11.1 g/dL Critically low 14.0-18.0 [facility] Comment on above: Performed By: #### B SOCIAL MEDIA DIRECTOR, T7, CMP, TSH #### [facility] [address] [place] [address] Dr. Get Whitten IG # 0.30 10e3/ul Critically high 0.00-0.03 [facility] Comment on above: Performed By: #### B SOCIAL MEDIA DIRECTOR, T7, CMP, TSH #### [facility] [address] [place] [address] Dr. Get Whitten IG % 3.3 % Critically high 0.0-0.5 [facility] Comment on above: Performed By: #### B SOCIAL MEDIA DIRECTOR, T7, CMP, TSH #### [facility] [address] [place] [address] Dr. Get Whitten LYMPH # 3.0 103/ul Normal 1.2-3.8 [facility] Comment on above: Performed By: #### B SOCIAL MEDIA DIRECTOR, T7, CMP, TSH #### [facility] [address] [place] [address] Dr. Get Whitten Lymphocytes/100 WBC (Bld) 32.7 % Normal 20.5-60.0 [facility] Comment on above: Performed By: #### B SOCIAL MEDIA DIRECTOR, T7, CMP, TSH #### [facility] [address] [place] [address] Dr. Get Whitten MANUAL DIFF REQ NO Normal [facility] Comment on above: Performed By: #### B SOCIAL MEDIA DIRECTOR, T7, CMP, TSH #### [facility] [address] [place] [address] Dr. Get Whtiten MCH (RBC) [Entitic mass] 34.8 pg Critically high 25.9-34.0 [facility] Comment on above: Performed By: #### B SOCIAL MEDIA DIRECTOR, T7, CMP, TSH #### [facility] [address] [place] [address] Dr. Get Whitten MCHC (RBC) [Mass/Vol] 33.3 g/dL Normal 29.9-35.2 [facility] Comment on above: Performed By: #### B SOCIAL MEDIA DIRECTOR, T7, CMP, TSH #### [facility] [address] [place] [address] Dr. Get Whitten MCV (RBC) [Entitic vol] 104.4 fL Critically high 80.0-94.0 [facility] Comment on above: Performed By: #### B SOCIAL MEDIA DIRECTOR, T7, CMP, TSH #### [facility] [address] [place] [address] Dr. Get Whitten MONO # 0.4 103/ul Normal 0.3-0.8 [facility] Comment on above: Performed By: #### B SOCIAL MEDIA DIRECTOR, T7, CMP, TSH #### [facility] [address] [place] [address] Dr. Get Whitten Monocytes/100 WBC (Bld) 4.2 % Normal 1.7-12.0 [facility] Comment on above: Performed By: #### B SOCIAL MEDIA DIRECTOR, T7, CMP, TSH #### [facility] [address] [place] [address] Dr. Get Whitten NEUT # 5.4 103/ul Normal 1.4-6.5 [facility] Comment on above: Performed By: #### B SOCIAL MEDIA DIRECTOR, T7, CMP, TSH #### [facility] [address] [place] [address] Dr. Get Whitten Neutrophils/100 WBC (Bld) 58.9 % Normal 43.0-75.0 [facility] Comment on above: Performed By: #### B SOCIAL MEDIA DIRECTOR, T7, CMP, TSH #### [facility] [address] [place] [address] Dr. Get Whitten Platelet mean volume (Bld) [Entitic vol] 9.5 fL Normal 9.5-13.5 [facility] Comment on above: Performed By: #### B SOCIAL MEDIA DIRECTOR, T7, CMP, TSH #### [facility] [address] [place] [address] Dr. Get Whitten PLT 187 103/ul Normal 150-450 [facility] Comment on above: Performed By: #### B SOCIAL MEDIA DIRECTOR, T7, CMP, TSH #### [facility] [address] [place] [address] Dr. Get Whitten RBC 3.19 106/ul Critically low 4.70-6.10 [facility] Comment on above: Performed By: #### B SOCIAL MEDIA DIRECTOR, T7, CMP, TSH #### [facility] [address] [place] [address] Dr. Get Whitten WBC 9.1 103/ul Normal 4.0-11.0 [facility] Comment on above: Performed By: #### B SOCIAL MEDIA DIRECTOR, T7, CMP, TSH #### [facility] [address] [place] [address] Dr. Get Whitten PROF 14(COMP METB)on 023 Albumin [Mass/Vol] 3.9 g/dL Normal 3.4-5.0 [facility] Comment on above: Performed By: #### C MP #### [facility] [address] [place] [address] Dr. Get Whitten Albumin/Globulin [Mass ratio] 1.1 {ratio} Normal [facility] Comment on above: Performed By: #### C MP #### [facility] [address] [place] [address] Dr. Get Whitten ALP [Catalytic activity/Vol] 34 U/L Critically low 46-116 [facility] Comment on above: Performed By: #### C MP #### [facility] [address] [place] [address] Dr. Get Whitten ALT [Catalytic activity/Vol] 21 U/L Normal 16-63 [facility] Comment on above: Performed By: #### C MP #### [facility] [address] [place] [address] Dr. Get Whitten Anion gap [Moles/Vol] 17.7 mmol/L Normal [facility] Comment on above: Performed By: #### C MP #### [facility] [address] [place] [address] Dr. Get Whitten AST [Catalytic activity/Vol] 15 U/L Normal 15-37 [facility] Comment on above: Performed By: #### C MP #### [facility] [address] [place] [address] Dr. Get Whitten Bilirubin [Mass/Vol] 0.3 mg/dL Normal 0.2-1.0 [facility] Comment on above: Performed By: #### C MP #### [facility] [address] [address] [address] Get Whitten Calcium [Mass/Vol] 8.7 mg/dL Normal 8.5-10.1 [facility] Comment on above: Performed By: #### C MP #### [facility] [address] [address] [address] Get Whitten Chloride [Moles/Vol] 99 mmol/L Normal 98-107 [facility] Comment on above: Performed By: #### C MP #### [facility] [address] [address] [address] Get Whitten CO2 [Moles/Vol] 21.8 mmol/L Normal 21.0-32.0 [facility] Comment on above: Performed By: #### C MP #### [facility] [address] [address] [address] Get Whitten Creatinine [Mass/Vol] 1.69 mg/dL Critically high 0.70-1.30 [facility] Comment on above: Performed By: #### C MP #### [facility] [address] [place] [address] Dr. Get Whitten EGFR-AF VINCENTIAN 51 mL/min/1.73m2 Critically low >=60 [facility] Comment on above: Performed By: #### C MP #### [facility] [address] [address] [address] Get Whitten EGFR-NON AF VINCENTIAN 42 mL/min/1.73m2 Critically low >=60 [facility] Comment on above: Performed By: #### C MP #### [facility] [address] [address] [address] Get Whitten Globulin (S) [Mass/Vol] 3.6 g/dL Normal [facility] Comment on above: Performed By: #### C MP #### [facility] [address] [address] [address] Get Whitten Glucose [Mass/Vol] 96 mg/dL Normal 74-106 [facility] Comment on above: Performed By: #### C MP #### [facility] [address] [address] [address] Get Whitten Potassium [Moles/Vol] 3.5 mmol/L Normal 3.5-5.1 [facility] Comment on above: Performed By: #### C MP #### [facility] [address] [address] [address] Get Whitten Protein [Mass/Vol] 7.5 g/dL Normal 6.4-8.2 [facility] Comment on above: Performed By: #### C MP #### [facility] [address] [address] [address] Get Whitten Sodium [Moles/Vol] 135 mmol/L Critically low 136-145 [facility] Comment on above: Performed By: #### C MP #### [facility] [address] [address] [address] Get Whitten Urea nitrogen [Mass/Vol] 15.0 mg/dL Normal 7.0-18.0 [facility] Comment on above: Performed By: #### C MP #### [facility] [address] [address] [address] Get Whitten Urea nitrogen/Creatinine [Mass ratio] 8.9 mg/mg Normal [facility] Comment on above: Performed By: #### C MP #### [facility] [address] [address] [address] eGt Whitten T3, TOTAL (TRIIODOTHYRONINE) on 11-28-2022 T3, TOTAL <20 Critically low 71-180 [facility] Comment on above: Performed By: #### C VDTBH #### [facility] [address] [address] [address] Get Whitten AMMONIAon 11-27-2022 Ammonia (P) [Mass/Vol] ug/dL Critically low 11-32 [facility] Comment on above: Performed By: #### C MP #### [facility] [address] [address] [address] Get Whitten BNPon 11-27-2022 Natriuretic peptide B (Bld) [Mass/Vol] 50.0 pg/mL Normal <=900.0 [facility] Comment on above: Performed By: #### B SOCIAL MEDIA DIRECTOR, T7, CMP, TSH #### [facility] [address] [place] [address] Dr. Get Whitten CARDIAC ANA ADMITon 023 CK [Catalytic activity/Vol] 173 U/L Normal 39-308 [facility] Comment on above: Performed By: #### B SOCIAL MEDIA DIRECTOR, T7, CMP, TSH #### [facility] [address] [place] [address] Dr. Get Whitten CK.MB [Mass/Vol] 1.64 ng/mL Normal <=3.60 [facility] Comment on above: Performed By: #### B SOCIAL MEDIA DIRECTOR, T7, CMP, TSH #### [facility] [address] [place] [address] Dr. Get Whitten HSTROP 4.3 pg/mL Normal 4.0-76.1 [facility] Comment on above: Result Comment: CUT- OFF POINTS HAVE BEEN ESTABLISHED BASED ON THE FOURTH UNIVERSAL DEFINITIONS OF MYOCARDIAL INFARCTION. THE UPPER REFERENCE LIMIT (URL) OF TROPONIN, DEFINED THE 99TH PERCENTILE OF cTnI DISTRIBUTION IN A REFERENCE POPULATION, HAS BEEN CONFIRMED THE DECISION THRESHOLD FOR [place] DIAGNOSIS. Performed By: #### B SOCIAL MEDIA DIRECTOR, T7, CMP, TSH #### [facility] [address] [place] [address] Dr. Get Whitten RAFA 72 ng/mL Normal 16-96 [facility] Comment on above: Performed By: #### B SOCIAL MEDIA DIRECTOR, T7, CMP, TSH #### [facility] [address] [place] [address] Dr. Get Whitten CBC AUTO DIFFon 11-27-2022 BASO # 0.1 103/ul Normal 0.0-0.1 [facility] Comment on above: Performed By: #### C VDTBH #### [facility] [address] [place] [address] Dr. Get Whitten Basophils/100 WBC (Bld) 0.6 % Normal 0.2-2.0 [facility] Comment on above: Performed By: #### C VDTBH #### [facility] [address] [place] [address] Dr. Get Whitten EO # 0.0 103/ul Normal 0.0-0.7 [facility] Comment on above: Performed By: #### C VDTBH #### [facility] [address] [place] [address] Dr. Get Whitten Eosinophils/100 WBC (Bld) 0.4 % Critically low 0.9-7.0 [facility] Comment on above: Performed By: #### C VDTBH #### [facility] [address] [place] [address] Dr. Get Whitten Erythrocyte distribution width (RBC) [Ratio] 18.6 % Critically high 11.0-15.0 [facility] Comment on above: Performed By: #### C VDTBH #### [facility] [address] [place] [address] Dr. Get Whitten Hematocrit (Bld) [Volume fraction] 35.4 % Critically low 42.0-54.0 [facility] Comment on above: Performed By: #### C VDTBH #### [facility] [address] [place] [address] Dr. Get Whitten Hemoglobin (Bld) [Mass/Vol] 11.9 g/dL Critically low 14.0-18.0 [facility] Comment on above: Performed By: #### C VDTBH #### [facility] [address] [place] [address] Dr. Get Whitten IG # 0.28 10e3/ul Critically high 0.00-0.03 [facility] Comment on above: Performed By: #### C VDTBH #### [facility] [address] [place] [address] Dr. Get Whitten IG % 3.5 % Critically high 0.0-0.5 [facility] Comment on above: Performed By: #### C VDTBH #### [facility] [address] [place] [address] Dr. Get Whitten LYMPH # 3.3 103/ul Normal 1.2-3.8 [facility] Comment on above: Performed By: #### C VDTBH #### [facility] [address] [place] [address] Dr. Get Whitten Lymphocytes/100 WBC (Bld) 41.6 % Normal 20.5-60.0 [facility] Comment on above: Performed By: #### C VDTBH #### [facility] [address] [place] [address] Dr. Get Whitten MANUAL DIFF REQ NO Normal [facility] Comment on above: Performed By: #### C VDTBH #### [facility] [address] [place] [address] Dr. Get Whitten MCH (RBC) [Entitic mass] 35.1 pg Critically high 25.9-34.0 [facility] Comment on above: Performed By: #### C VDTBH #### [facility] [address] [place] [address] Dr. Get Whitten MCHC (RBC) [Mass/Vol] 33.6 g/dL Normal 29.9-35.2 [facility] Comment on above: Performed By: #### C VDTBH #### [facility] [address] [place] [address] Dr. Get Whitten MCV (RBC) [Entitic vol] 104.4 fL Critically high 80.0-94.0 [facility] Comment on above: Performed By: #### C VDTBH #### [facility] [address] [place] [address] Dr. Get Whitten MONO # 0.4 103/ul Normal 0.3-0.8 [facility] Comment on above: Performed By: #### C VDTBH #### [facility] [address] [place] [address] Dr. Get Whitten Monocytes/100 WBC (Bld) 5.0 % Normal 1.7-12.0 [facility] Comment on above: Performed By: #### C VDTBH #### [facility] [address] [place] [address] Dr. Get Whitten NEUT # 3.9 103/ul Normal 1.4-6.5 [facility] Comment on above: Performed By: #### C VDTBH #### [facility] [address] [place] [address] Dr. Get Whitten Neutrophils/100 WBC (Bld) 48.9 % Normal 43.0-75.0 [facility] Comment on above: Performed By: #### C VDTBH #### [facility] [address] [place] [address] Dr. Get Whitten Platelet mean volume (Bld) [Entitic vol] 9.5 fL Normal 9.5-13.5 [facility] Comment on above: Performed By: #### C VDTBH #### [facility] [address] [place] [address] Dr. Get Whitten PLT 182 103/ul Normal 150-450 [facility] Comment on above: Performed By: #### C VDTBH #### [facility] [address] [place] [address] Dr. Get Whitten RBC 3.39 106/ul Critically low 4.70-6.10 [facility] Comment on above: Performed By: #### C VDTBH #### [facility] [address] [place] [address] Dr. Get Whitten WBC 8.0 103/ul Normal 4.0-11.0 [facility] Comment on above: Performed By: #### C VDTBH #### [facility] [address] [place] [address] CSPINE WO CONon [...] SHEN SOSA Date: 2022-11-27 11:26 Normal [facility] CT STROKE HEAD WOon 11-28-19 CT [...] SHEN SOSA Date: 2022-11-27 11:16 Normal [facility] Covid-19 PCR (CVDTBH)on 11-13 SARS-CoV-2 (COVID-19) RNA ASHLEE+probe Ql (Unsp spec) Not detected Normal NOT DETECTED [facility] Comment on above: Result Comment: THIS TEST IS NOT APPROVED BY THE FDA. IT HAS BEEN AUTHORIZED FOR USE UNDER AN EMERGENCY USE AUTHORIZATION. Performed By: #### C MP #### [facility] [address] [address] [address] Get Whitten ETHANOL (BLD ALC)on 11-28-19 ALC NOTE NOTE: 80 mg/dl is th e legal limit for a blood alcohol level Normal [facility] Comment on above: Performed By: #### B SOCIAL MEDIA DIRECTOR, T7, CMP, TSH #### [facility] [address] [place] [address] Dr. Get Whitten Ethanol [Mass/Vol] mg/dL Normal [facility] Comment on above: Performed By: #### B SOCIAL MEDIA DIRECTOR, T7, CMP, TSH #### [facility] [address] [address] [address] Get Whitten MAGNESIUMon 11-27-2022 Magnesium [Mass/Vol] 2.3 mg/dL Normal 1.8-2.4 [facility] Comment on above: Performed By: #### B SOCIAL MEDIA DIRECTOR, T7, CMP, TSH #### [facility] [address] [place] [address] Dr. Get Whitten PROF 14(COMP METB)on 023 Albumin [Mass/Vol] 4.1 g/dL Normal 3.4-5.0 [facility] Comment on above: Performed By: #### B SOCIAL MEDIA DIRECTOR, T7, CMP, TSH #### [facility] [address] [place] [address] Dr. Get Whitten Albumin/Globulin [Mass ratio] 1.1 {ratio} Normal [facility] Comment on above: Performed By: #### B SOCIAL MEDIA DIRECTOR, T7, CMP, TSH #### [facility] [address] [place] [address] Dr. Get Whitten ALP [Catalytic activity/Vol] 36 U/L Critically low 46-116 [facility] Comment on above: Performed By: #### B SOCIAL MEDIA DIRECTOR, T7, CMP, TSH #### [facility] [address] [place] [address] Dr. Get Whitten ALT [Catalytic activity/Vol] 15 U/L Critically low 16-63 [facility] Comment on above: Performed By: #### B SOCIAL MEDIA DIRECTOR, T7, CMP, TSH #### [facility] [address] [place] [address] Dr. Get Whitten Anion gap [Moles/Vol] 15.0 mmol/L Normal [facility] Comment on above: Performed By: #### B SOCIAL MEDIA DIRECTOR, T7, CMP, TSH #### [facility] [address] [address] [address] Get Whitten AST [Catalytic activity/Vol] 13 U/L Critically low 15-37 [facility] Comment on above: Performed By: #### B SOCIAL MEDIA DIRECTOR, T7, CMP, TSH #### [facility] [address] [address] [address] Get Whitten Bilirubin [Mass/Vol] 0.3 mg/dL Normal 0.2-1.0 [facility] Comment on above: Performed By: #### B SOCIAL MEDIA DIRECTOR, T7, CMP, TSH #### [facility] [address] [place] [address] Dr. Get Whitten Calcium [Mass/Vol] 9.1 mg/dL Normal 8.5-10.1 [facility] Comment on above: Performed By: #### B SOCIAL MEDIA DIRECTOR, T7, CMP, TSH #### [facility] [address] [place] [address] Dr. Get Whitten Chloride [Moles/Vol] 101 mmol/L Normal 98-107 [facility] Comment on above: Performed By: #### B SOCIAL MEDIA DIRECTOR, T7, CMP, TSH #### [facility] [address] [place] [address] Dr. Get Whitten CO2 [Moles/Vol] 22.2 mmol/L Normal 21.0-32.0 [facility] Comment on above: Performed By: #### B SOCIAL MEDIA DIRECTOR, T7, CMP, TSH #### [facility] [address] [place] [address] Dr. Get Whitten Creatinine [Mass/Vol] 1.84 mg/dL Critically high 0.70-1.30 [facility] Comment on above: Performed By: #### B SOCIAL MEDIA DIRECTOR, T7, CMP, TSH #### [facility] [address] [place] [address] Dr. Get Whitten EGFR-AF VINCENTIAN 46 mL/min/1.73m2 Critically low >=60 [facility] Comment on above: Performed By: #### B SOCIAL MEDIA DIRECTOR, T7, CMP, TSH #### [facility] [address] [place] [address] Dr. Get Whitten EGFR-NON AF VINCENTIAN 38 mL/min/1.73m2 Critically low >=60 [facility] Comment on above: Performed By: #### B SOCIAL MEDIA DIRECTOR, T7, CMP, TSH #### [facility] [address] [place] [address] Dr. Get Whitten Globulin (S) [Mass/Vol] 3.6 g/dL Normal [facility] Comment on above: Performed By: #### B SOCIAL MEDIA DIRECTOR, T7, CMP, TSH #### [facility] [address] [place] [address] Dr. Get Whitten Glucose [Mass/Vol] 87 mg/dL Normal 74-106 [facility] Comment on above: Performed By: #### B SOCIAL MEDIA DIRECTOR, T7, CMP, TSH #### [facility] [address] [place] [address] Dr. Get Whitten Potassium [Moles/Vol] 4.2 mmol/L Normal 3.5-5.1 [facility] Comment on above: Performed By: #### B SOCIAL MEDIA DIRECTOR, T7, CMP, TSH #### [facility] [address] [place] [address] Dr. Get Whitten Protein [Mass/Vol] 7.7 g/dL Normal 6.4-8.2 [facility] Comment on above: Performed By: #### B SOCIAL MEDIA DIRECTOR, T7, CMP, TSH #### [facility] [address] [place] [address] Dr. Get Whitten Sodium [Moles/Vol] 134 mmol/L Critically low 136-145 [facility] Comment on above: Performed By: #### B SOCIAL MEDIA DIRECTOR, T7, CMP, TSH #### [facility] [address] [place] [address] Dr. Get Whitten Urea nitrogen [Mass/Vol] 14.0 mg/dL Normal 7.0-18.0 [facility] Comment on above: Performed By: #### B SOCIAL MEDIA DIRECTOR, T7, CMP, TSH #### [facility] [address] [place] [address] Dr. Get Whitten Urea nitrogen/Creatinine [Mass ratio] 7.6 mg/mg Normal [facility] Comment on above: Performed By: #### B SOCIAL MEDIA DIRECTOR, T7, CMP, TSH #### [facility] [address] [place] [address] Dr. Get Whitten PROTIMEon 11-27-2022 INR Coag (PPP) [Relative time] 0.98 {INR} Normal [facility] Comment on above: Performed By: #### B SOCIAL MEDIA DIRECTOR, T7, CMP, TSH #### [facility] [address] [place] [address] Dr. Get Whitten INR GUIDELINES SEE BELOW Normal [facility] Comment on above: Result Comment: JORGE RED INR: 2.0 - 3.0 CONDITIONS NOT LISTED BELOW 2.5 - 3.5 FOR PROSTHETIC HEART VALVE REPLACEMENT 2.5 - 3.5 RECURRENT THROMBOSIS Performed By: #### B SOCIAL MEDIA DIRECTOR, T7, CMP, TSH #### [facility] [address] [place] [address] Dr. Get Whitten PT Coag (PPP) [Time] 10.4 s Normal 9.0-11.6 [facility] Comment on above: Performed By: #### B SOCIAL MEDIA DIRECTOR, T7, CMP, TSH #### [facility] [address] [place] [address] Dr. Get Whitten PTTon 11-27-2022 aPTT Coag (Bld) [Time] 30.4 s Normal 22.3-36.2 [facility] Comment on above: Performed By: #### B SOCIAL MEDIA DIRECTOR, T7, CMP, TSH #### [facility] [address] [place] [address] Dr. Get Whitten SYMPTOMATIC COVID-19 ANTIGEN on 11-27-2022 EUA Statement SEE BELOW Normal [facility] Comment on above: Result Comment: This [...] By: #### C MP, HSTROPN, BNP #### [facility] [address] [place] [address] Dr. Get Whitten SARS-CoV-2 (COVID-19) RNA ASHLEE+probe Ql (Unsp spec) Negative Normal NEGATIVE [facility] Comment on above: Performed By: #### C MP, HSTROPN, BNP #### [facility] [address] [address] [address] Get Whitten T4on 11-27-2022 T4 [Mass/Vol] 0.90 ug/dL Critically low 4.50-12.10 [facility] Comment on above: Performed By: #### B SOCIAL MEDIA DIRECTOR, T7, CMP, TSH #### [facility] [address] [place] [address] Dr. Get Whitten TROPONIN, HIGH SENSITIVITYon 11-27-2022 HSTROP 4.1 pg/mL Normal 4.0-76.1 [facility] Comment on above: Result Comment: CUT- OFF POINTS HAVE BEEN ESTABLISHED BASED ON THE FOURTH UNIVERSAL DEFINITIONS OF MYOCARDIAL INFARCTION. THE UPPER REFERENCE LIMIT (URL) OF TROPONIN, DEFINED THE 99TH PERCENTILE OF cTnI DISTRIBUTION IN A REFERENCE POPULATION, HAS BEEN CONFIRMED THE DECISION THRESHOLD FOR WA DIAGNOSIS. Performed By: #### B SOCIAL MEDIA DIRECTOR, T7, CMP, TSH #### [facility] [address] [place] [address] Dr. Get Whitten TSHon 11-27-2022 TSH 134.470 uIU/mL Critically high 0.358-3.740 [facility] Comment on above: Performed By: #### B SOCIAL MEDIA DIRECTOR, T7, CMP, TSH #### [facility] [address] [place] [address] Dr. Get Whitten XR CHEST 1 Von [...] by: SHEN SOSA Date: 2022-11-27 11:19 Normal [facility] XR CSPINE MIN 4 VIEWSon [...] by: SHEN SOSA Date: 2022-10-24 10:22 Normal [facility] XR LSPINE MIN 4 VIEWSon [...] by: SHEN SOSA Date: 2022-10-24 10:19 Normal [facility] H PYLORI ANTIBODY IGGon H. PYLORI IGG ABS 0.07 Index Value Normal 0.00-0.79 [facility] Comment on above: Result Comment: Nega tive <0.80 Equivocal 0.80 - 0.89 Positive >0.89 Performed By: #### B SOCIAL MEDIA DIRECTOR, T7, CMP, TSH #### [facility] [address] [place] [address] Dr. Get Whitten BNPon 04-15-2022 Natriuretic peptide B (Bld) [Mass/Vol] 138.0 pg/mL Normal <=900.0 [facility] Comment on above: Performed By: #### B SOCIAL MEDIA DIRECTOR, T7, CMP, TSH #### [facility] [address] [place] [address] Dr. Get Whitten CBC AUTO DIFFon 04-15-2022 BASO # 0.0 103/ul Normal 0.0-0.1 [facility] Comment on above: Performed By: #### C MP, HSTROPN, BNP #### [facility] [address] [place] [address] Dr. Get Whitten Basophils/100 WBC (Bld) 0.4 % Normal 0.2-2.0 [facility] Comment on above: Performed By: #### C MP, HSTROPN, BNP #### [facility] [address] [place] [address] Dr. Get Whitten EO # 0.0 103/ul Normal 0.0-0.7 [facility] Comment on above: Performed By: #### C MP, HSTROPN, BNP #### [facility] [address] [place] [address] Dr. Get Whitten Eosinophils/100 WBC (Bld) 0.3 % Critically low 0.9-7.0 [facility] Comment on above: Performed By: #### C MP, HSTROPN, BNP #### [facility] [address] [place] [address] Dr. Get Whitten Erythrocyte distribution width (RBC) [Ratio] 13.2 % Normal 11.0-15.0 [facility] Comment on above: Performed By: #### C MP, HSTROPN, BNP #### [facility] [address] [place] [address] Dr. Get Whitten Hematocrit (Bld) [Volume fraction] 37.9 % Critically low 42.0-54.0 [facility] Comment on above: Performed By: #### C MP, HSTROPN, BNP #### [facility] [address] [place] [address] Dr. Get Whitten Hemoglobin (Bld) [Mass/Vol] 13.1 g/dL Critically low 14.0-18.0 [facility] Comment on above: Performed By: #### C MP, HSTROPN, BNP #### [facility] [address] [place] [address] Dr. Get Whitten IG # 0.24 10e3/ul Critically high 0.00-0.03 [facility] Comment on above: Performed By: #### C MP, HSTROPN, BNP #### [facility] [address] [place] [address] Dr. Get Whitten IG % 3.1 % Critically high 0.0-0.5 [facility] Comment on above: Performed By: #### C MP, HSTROPN, BNP #### [facility] [address] [place] [address] Dr. Get Whitten LYMPH # 3.1 103/ul Normal 1.2-3.8 [facility] Comment on above: Performed By: #### C MP, HSTROPN, BNP #### [facility] [address] [place] [address] Dr. Get Whitten Lymphocytes/100 WBC (Bld) 40.3 % Normal 20.5-60.0 [facility] Comment on above: Performed By: #### C MP, HSTROPN, BNP #### [facility] [address] [place] [address] Dr. Get Whitten MANUAL DIFF REQ NO Normal [facility] Comment on above: Performed By: #### C MP, HSTROPN, BNP #### [facility] [address] [place] [address] Dr. Get Whitten MCH (RBC) [Entitic mass] 36.1 pg Critically high 25.9-34.0 [facility] Comment on above: Performed By: #### C MP, HSTROPN, BNP #### [facility] [address] [address] [address] Get Whitten MCHC (RBC) [Mass/Vol] 34.6 g/dL Normal 29.9-35.2 [facility] Comment on above: Performed By: #### C MP, HSTROPN, BNP #### [facility] [address] [place] [address] Dr. Get Whitten MCV (RBC) [Entitic vol] 104.4 fL Critically high 80.0-94.0 [facility] Comment on above: Performed By: #### C MP, HSTROPN, BNP #### [facility] [address] [place] [address] Dr. Get Whitten MONO # 0.7 103/ul Normal 0.3-0.8 [facility] Comment on above: Performed By: #### C MP, HSTROPN, BNP #### [facility] [address] [place] [address] Dr. Get Whitten Monocytes/100 WBC (Bld) 9.4 % Normal 1.7-12.0 [facility] Comment on above: Performed By: #### C MP, HSTROPN, BNP #### [facility] [address] [place] [address] Dr. Get Whitten NEUT # 3.6 103/ul Normal 1.4-6.5 [facility] Comment on above: Performed By: #### C MP, HSTROPN, BNP #### [facility] [address] [place] [address] Dr. Get Whitten Neutrophils/100 WBC (Bld) 46.5 % Normal 43.0-75.0 [facility] Comment on above: Performed By: #### C MP, HSTROPN, BNP #### [facility] [address] [address] [address] Get Whitten Platelet mean volume (Bld) [Entitic vol] 8.5 fL Critically low 9.5-13.5 [facility] Comment on above: Performed By: #### C MP, HSTROPN, BNP #### [facility] [address] [place] [address] Dr. Get Whitten PLT 128 103/ul Critically low 150-450 [facility] Comment on above: Performed By: #### C MP, HSTROPN, BNP #### [facility] [address] [place] [address] Dr. Get Whitten RBC 3.63 106/ul Critically low 4.70-6.[address] [facility] Comment on above: Performed By: #### C MP, HSTROPN, BNP #### [facility] [address] [place] [address] Dr. Get Whitten WBC 7.7 103/ul Normal 4.0-11.0 [facility] Comment on above: Performed By: #### C MP, HSTROPN, BNP #### [facility] [address] [place] [address] Dr. Get Whitten FREE THYROXINE INDEX T7on FTI 0.22 Critically low 1.30-4.50 [facility] Comment on above: Performed By: #### B SOCIAL MEDIA DIRECTOR, T7, CMP, TSH #### [facility] [address] [place] [address] Dr. Get Whitten T3U 37.0 % Normal 33.0-40.0 [facility] Comment on above: Performed By: #### B SOCIAL MEDIA DIRECTOR, T7, CMP, TSH #### [facility] [address] [place] [address] Dr. Get Whitten T4 [Mass/Vol] 0.60 ug/dL Critically low 4.50-12.10 [facility] Comment on above: Performed By: #### B SOCIAL MEDIA DIRECTOR, T7, CMP, TSH #### [facility] [address] [address] [address] Get Whitten IRONon 04-15-2022 Iron [Mass/Vol] 74.0 ug/dL Normal 65.0-175.0 [facility] Comment on above: Performed By: #### C VDTBH #### [facility] [address] [address] [address] Get Whitten PROF 14(COMP METB)on 022 Albumin [Mass/Vol] 3.6 g/dL Normal 3.4-5.0 [facility] Comment on above: Performed By: #### B SOCIAL MEDIA DIRECTOR, T7, CMP, TSH #### [facility] [address] [place] [address] Dr. Get Whitten Albumin/Globulin [Mass ratio] 1.3 {ratio} Normal [facility] Comment on above: Performed By: #### B SOCIAL MEDIA DIRECTOR, T7, CMP, TSH #### [facility] [address] [address] [address] Get Whitten ALP [Catalytic activity/Vol] 41 U/L Critically low 46-116 [facility] Comment on above: Performed By: #### B SOCIAL MEDIA DIRECTOR, T7, CMP, TSH #### [facility] [address] [address] [address] Get Whitten ALT [Catalytic activity/Vol] 111 U/L Critically high 16-63 [facility] Comment on above: Performed By: #### B SOCIAL MEDIA DIRECTOR, T7, CMP, TSH #### [facility] [address] [address] [address] Get Whitten Anion gap [Moles/Vol] 10.3 mmol/L Normal [facility] Comment on above: Performed By: #### B SOCIAL MEDIA DIRECTOR, T7, CMP, TSH #### [facility] [address] [place] [address] Dr. Get Whitten AST [Catalytic activity/Vol] 30 U/L Normal 15-37 [facility] Comment on above: Performed By: #### B SOCIAL MEDIA DIRECTOR, T7, CMP, TSH #### [facility] [address] [place] [address] Dr. Get Whitten Bilirubin [Mass/Vol] 0.3 mg/dL Normal 0.2-1.0 [facility] Comment on above: Performed By: #### B SOCIAL MEDIA DIRECTOR, T7, CMP, TSH #### [facility] [address] [address] [address] Get Whitten Calcium [Mass/Vol] 8.1 mg/dL Critically low 8.5-10.1 Th e [facility] Comment on above: Performed By: #### B SOCIAL MEDIA DIRECTOR, T7, CMP, TSH #### [facility] [address] [place] [address] Dr. Get Whitten Chloride [Moles/Vol] 98 mmol/L Normal 98-107 [facility] Comment on above: Performed By: #### B SOCIAL MEDIA DIRECTOR, T7, CMP, TSH #### [facility] [address] [place] [address] Dr. Get Whitten CO2 [Moles/Vol] 24.7 mmol/L Normal 21.0-32.0 [facility] Comment on above: Performed By: #### B SOCIAL MEDIA DIRECTOR, T7, CMP, TSH #### [facility] [address] [place] [address] Dr. Get Whitten Creatinine [Mass/Vol] 1.24 mg/dL Normal 0.70-1.30 [facility] Comment on above: Performed By: #### B SOCIAL MEDIA DIRECTOR, T7, CMP, TSH #### [facility] [address] [place] [address] Dr. Get Whitten EGFR-AF VINCENTIAN >60 Normal >=60 [facility] Comment on above: Performed By: #### B SOCIAL MEDIA DIRECTOR, T7, CMP, TSH #### [facility] [address] [place] [address] Dr. Get Whitten EGFR-NON AF VINCENTIAN =60 Normal >=60 [facility] Comment on above: Performed By: #### B SOCIAL MEDIA DIRECTOR, T7, CMP, TSH #### [facility] [address] [place] [address] Dr. Get Whitten Globulin (S) [Mass/Vol] 2.7 g/dL Normal [facility] Comment on above: Performed By: #### B SOCIAL MEDIA DIRECTOR, T7, CMP, TSH #### [facility] [address] [place] [address] Dr. Get Whitten Glucose [Mass/Vol] 107 mg/dL Critically high 74-106 [facility] Comment on above: Performed By: #### B SOCIAL MEDIA DIRECTOR, T7, CMP, TSH #### [facility] [address] [place] [address] Dr. Get Whitten Potassium [Moles/Vol] 4.0 mmol/L Normal 3.5-5.1 [facility] Comment on above: Performed By: #### B SOCIAL MEDIA DIRECTOR, T7, CMP, TSH #### [facility] [address] [place] [address] Dr. Get Whitten Protein [Mass/Vol] 6.3 g/dL Critically low 6.4-8.2 [facility] Comment on above: Performed By: #### B SOCIAL MEDIA DIRECTOR, T7, CMP, TSH #### [facility] [address] [place] [address] Dr. Get Whitten Sodium [Moles/Vol] 129 mmol/L Critically low 136-145 [facility] Comment on above: Performed By: #### B SOCIAL MEDIA DIRECTOR, T7, CMP, TSH #### [facility] [address] [place] [address] Dr. Get Whitten Urea nitrogen [Mass/Vol] 12.0 mg/dL Normal 7.0-18.0 [facility] Comment on above: Performed By: #### B SOCIAL MEDIA DIRECTOR, T7, CMP, TSH #### [facility] [address] [place] [address] Dr. Get Whitten Urea nitrogen/Creatinine [Mass ratio] 9.7 mg/mg Normal [facility] Comment on above: Performed By: #### B SOCIAL MEDIA DIRECTOR, T7, CMP, TSH #### [facility] [address] [place] [address] Dr. Get Whitten TSHon 04-15-2022 TSH 76.327 uIU/mL Critically high 0.358-3.740 [facility] Comment on above: Performed By: #### B SOCIAL MEDIA DIRECTOR, T7, CMP, TSH #### [facility] [address] [place] [address] Dr. Get Whitten BNPon 03-31-2022 Natriuretic peptide B (Bld) [Mass/Vol] 349.0 pg/mL Normal <=900.0 [facility] Comment on above: Performed By: #### B SOCIAL MEDIA DIRECTOR, T7, CMP, TSH #### [facility] [address] [place] [address] Dr. Get Whitten CBC W MANUAL DIFFon 03-31-20 22 ATYPICAL LYMPH # 0.26 103/ul Normal [facility] Comment on above: Performed By: #### C MP #### [facility] [address] [place] [address] Dr. Get Whitten ATYPICAL LYMPH % 2 % Normal [facility] Comment on above: Performed By: #### C MP #### [facility] [address] [place] [address] Dr. Get Whitten BAND # 0.0 103/ul Normal 0.0-0.3 [facility] Comment on above: Performed By: #### C MP #### [facility] [address] [place] [address] Dr. Get Whitten BAND % 0 % Normal 0-5 [facility] Comment on above: Performed By: #### C MP #### [facility] [address] [place] [address] Dr. Get Whitten BASOM # 0.00 103/ul Normal 0.00-0.10 [facility] Comment on above: Performed By: #### C MP #### [facility] [address] [place] [address] Dr. Get Whitten BASOM % 0.0 % Critically low 0.2-2.0 [facility] Comment on above: Performed By: #### C MP #### [facility] [address] [place] [address] Dr. Get Whitten BLAST # Normal [facility] Comment on above: Performed By: #### C MP #### [facility] [address] [place] [address] Dr. Get Whitten BLAST % Normal [facility] Comment on above: Performed By: #### C MP #### [facility] [address] [address] [address] Get Whitten CORRECTED WBC Normal 4.0-11.0 [facility] Comment on above: Performed By: #### C MP #### [facility] [address] [address] [address] Get Whitten EOS # 0.00 103/ul Normal 0.00-0.70 [facility] Comment on above: Performed By: #### C MP #### [facility] [address] [address] [address] Get Whitten EOS% 0.0 % Critically low 0.9-7.0 [facility] Comment on above: Performed By: #### C MP #### [facility] [address] [place] [address] Dr. Get Whitten HCT 38.3 % Critically low 42.0-54.0 [facility] Comment on above: Performed By: #### C MP #### [facility] [address] [place] [address] Dr. Get Whitten HGB 13.7 g/dl Critically low 14.0-18.0 [facility] Comment on above: Performed By: #### C MP #### [facility] [address] [place] [address] Dr. Get Whitten LYMPHM # 1.43 103/ul Normal 1.20-3.80 [facility] Comment on above: Performed By: #### C MP #### [facility] [address] [address] [address] Get Whitten LYMPHM% 11.0 % Critically low 20.5-60.0 [facility] Comment on above: Performed By: #### C MP #### [facility] [address] [place] [address] Dr. Get Whitten MCH 36.3 pg Critically high 25.9-34.[address] [facility] Comment on above: Performed By: #### C MP #### [facility] [address] [place] [address] Dr. Get Whitten MCHC 35.8 g/dl Critically high 29.9-35.2 [facility] Comment on above: Performed By: #### C MP #### [facility] [address] [place] [address] Dr. Get Whitten MCV 101.6 fL Critically high 80.0-94.0 [facility] Comment on above: Performed By: #### C MP #### [facility] [address] [place] [address] Dr. Get Whitten METAMYELOCYTE # Normal [facility] Comment on above: Performed By: #### C MP #### [facility] [address] [place] [address] Dr. Get Whitten METAMYELOCYTE % Normal [facility] Comment on above: Performed By: #### C MP #### [facility] [address] [place] [address] Dr. Get Whitten MONOM# 0.78 103/ul Normal 0.30-0.80 [facility] Comment on above: Performed By: #### C MP #### [facility] [address] [place] [address] Dr. Get Whitten MONOM% 6.0 % Normal 1.7-12.0 [facility] Comment on above: Performed By: #### C MP #### [facility] [address] [place] [address] Dr. Get Whitten MPV 8.7 fL Critically low 9.5-13.5 [facility] Comment on above: Performed By: #### C MP #### [facility] [address] [place] [address] Dr. Get Whitten MYELOCYTE # Normal [facility] Comment on above: Performed By: #### C MP #### [facility] [address] [place] [address] Dr. Get Whitten MYELOCYTE % Normal [facility] Comment on above: Performed By: #### C MP #### [facility] [address] [place] [address] Dr. Get Whitten NRBC Normal [facility] Comment on above: Performed By: #### C MP #### [facility] [address] [address] [address] Get Whitten PLT 225 103/ul Normal 150-450 [facility] Comment on above: Performed By: #### C MP #### [facility] [address] [address] [address] Get Whitten RBC 3.77 106/ul Critically low 4.70-6.10 [facility] Comment on above: Performed By: #### C MP #### [facility] [address] [address] [address] Get Whitten RDW 12.7 % Normal 11.0-15.0 [facility] Comment on above: Performed By: #### C MP #### [facility] [address] [address] [address] Get Whitten SEG # 10.53 103/ul Critically high 1.40-6.50 [facility] Comment on above: Performed By: #### C MP #### [facility] [address] [address] [address] Get Whitten SEG % 81.0 % Critically high 43.0-75.0 [facility] Comment on above: Performed By: #### C MP #### [facility] [address] [address] [address] Get Whitten WBC 13.0 103/ul Critically high 4.0-11.0 [facility] Comment on above: Performed By: #### C MP #### [facility] [address] [address] [address] Get Whitten CRPon 03-31-2022 CRP [Mass/Vol] mg/L Normal <=1.0 [facility] Comment on above: Performed By: #### B SOCIAL MEDIA DIRECTOR, T7, CMP, TSH #### [facility] [address] [address] [address] Get Whitten PROF 14(COMP METB)on 022 Albumin [Mass/Vol] 3.3 g/dL Critically low 3.4-5.0 [facility] Comment on above: Performed By: #### B SOCIAL MEDIA DIRECTOR, T7, CMP, TSH #### [facility] [address] [address] [address] Get Whitten Albumin/Globulin [Mass ratio] 1.2 {ratio} Normal [facility] Comment on above: Performed By: #### B SOCIAL MEDIA DIRECTOR, T7, CMP, TSH #### [facility] [address] [address] [address] Get Whitten ALP [Catalytic activity/Vol] 48 U/L Normal 46-116 [facility] Comment on above: Performed By: #### B SOCIAL MEDIA DIRECTOR, T7, CMP, TSH #### [facility] [address] [address] [address] Get Whitten ALT [Catalytic activity/Vol] 130 U/L Critically high 16-63 [facility] Comment on above: Performed By: #### B SOCIAL MEDIA DIRECTOR, T7, CMP, TSH #### [facility] [address] [place] [address] Dr. Get Whitten Anion gap [Moles/Vol] 11.9 mmol/L Normal [facility] Comment on above: Performed By: #### B SOCIAL MEDIA DIRECTOR, T7, CMP, TSH #### [facility] [address] [address] [address] Get Whitten AST [Catalytic activity/Vol] 50 U/L Critically high 15-37 [facility] Comment on above: Performed By: #### B SOCIAL MEDIA DIRECTOR, T7, CMP, TSH #### [facility] [address] [address] [address] Gte Whitten Bilirubin [Mass/Vol] 0.5 mg/dL Normal 0.2-1.0 [facility] Comment on above: Performed By: #### B SOCIAL MEDIA DIRECTOR, T7, CMP, TSH #### [facility] [address] [address] [address] Get Whitten Calcium [Mass/Vol] 7.9 mg/dL Critically low 8.5-10.1 Th [facility] Comment on above: Performed By: #### B SOCIAL MEDIA DIRECTOR, T7, CMP, TSH #### [facility] [address] [address] [address] Get Whitten Chloride [Moles/Vol] 99 mmol/L Normal 98-107 [facility] Comment on above: Performed By: #### B SOCIAL MEDIA DIRECTOR, T7, CMP, TSH #### [facility] [address] [place] [address] Dr. Get Whitten CO2 [Moles/Vol] 18.4 mmol/L Critically low 21.0-32.0 [facility] Comment on above: Performed By: #### B SOCIAL MEDIA DIRECTOR, T7, CMP, TSH #### [facility] [address] [place] [address] Dr. Get Whitten Creatinine [Mass/Vol] 0.96 mg/dL Normal 0.70-1.30 [facility] Comment on above: Performed By: #### B SOCIAL MEDIA DIRECTOR, T7, CMP, TSH #### [facility] [address] [place] [address] Dr. Get Whitten EGFR-AF VINCENTIAN >60 Normal >=60 [facility] Comment on above: Performed By: #### B SOCIAL MEDIA DIRECTOR, T7, CMP, TSH #### [facility] [address] [place] [address] Dr. Get Whitten EGFR-NON AF VINCENTIAN >60 Normal >=60 [facility] Comment on above: Performed By: #### B SOCIAL MEDIA DIRECTOR, T7, CMP, TSH #### [facility] [address] [place] [address] Dr. Get Whitten Globulin (S) [Mass/Vol] 2.8 g/dL Normal [facility] Comment on above: Performed By: #### B SOCIAL MEDIA DIRECTOR, T7, CMP, TSH #### [facility] [address] [place] [address] Dr. Get Whitten Glucose [Mass/Vol] 166 mg/dL Critically high 74-106 [facility] Comment on above: Performed By: #### B SOCIAL MEDIA DIRECTOR, T7, CMP, TSH #### [facility] [address] [place] [address] Dr. Get Whitten Potassium [Moles/Vol] 3.3 mmol/L Critically low 3.5-5.1 [facility] Comment on above: Performed By: #### B SOCIAL MEDIA DIRECTOR, T7, CMP, TSH #### [facility] [address] [place] [address] Dr. Get Whitten Protein [Mass/Vol] 6.1 g/dL Critically low 6.4-8.2 [facility] Comment on above: Performed By: #### B SOCIAL MEDIA DIRECTOR, T7, CMP, TSH #### [facility] [address] [place] [address] Dr. Get Whitten Sodium [Moles/Vol] 126 mmol/L Critically low 136-145 [facility] Comment on above: Performed By: #### B SOCIAL MEDIA DIRECTOR, T7, CMP, TSH #### [facility] [address] [place] [address] Dr. Get Whitten Urea nitrogen [Mass/Vol] 8.0 mg/dL Normal 7.0-18.0 [facility] Comment on above: Performed By: #### B SOCIAL MEDIA DIRECTOR, T7, CMP, TSH #### [facility] [address] [place] [address] Dr. Get Whitten Urea nitrogen/Creatinine [Mass ratio] 8.3 mg/mg Normal [facility] Comment on above: Performed By: #### B SOCIAL MEDIA DIRECTOR, T7, CMP, TSH #### [facility] [address] [place] [address] Dr. Get Whitten BNPon 03-30-2022 Natriuretic peptide B (Bld) [Mass/Vol] 274.0 pg/mL Normal <=900.0 [facility] Comment on above: Performed By: #### C MP, HSTROPN, BNP #### [facility] [address] [place] [address] Dr. Get Whitten CARDIAC ANA 3-6on 2 CK [Catalytic activity/Vol] 48 U/L Normal 39-308 [facility] Comment on above: Performed By: #### B SOCIAL MEDIA DIRECTOR, T7, CMP, TSH #### [facility] [address] [place] [address] Dr. Get Whitten CK.MB [Mass/Vol] 1.62 ng/mL Normal <=3.60 [facility] Comment on above: Performed By: #### B SOCIAL MEDIA DIRECTOR, T7, CMP, TSH #### [facility] [address] [place] [address] Dr. Get Whitten HSTROP 15.7 pg/mL Normal 4.0-76.1 [facility] Comment on above: Result Comment: CUT- OFF POINTS HAVE BEEN ESTABLISHED BASED ON THE FOURTH UNIVERSAL DEFINITIONS OF MYOCARDIAL INFARCTION. THE UPPER REFERENCE LIMIT (URL) OF TROPONIN, DEFINED THE 99TH PERCENTILE OF cTnI DISTRIBUTION IN A REFERENCE POPULATION, HAS BEEN CONFIRMED THE DECISION THRESHOLD FOR [place] DIAGNOSIS. Performed By: #### B SOCIAL MEDIA DIRECTOR, T7, CMP, TSH #### [facility] [address] [place] [address] Dr. Get Whitten CBC AUTO DIFFon 03-30-2022 BASO # 0.1 103/ul Normal 0.0-0.1 [facility] Comment on above: Performed By: #### C MP #### [facility] [address] [place] [address] Dr. Get Whitten Basophils/100 WBC (Bld) 0.8 % Normal 0.2-2.0 [facility] Comment on above: Performed By: #### C MP #### [facility] [address] [place] [address] Dr. Get Whitten EO # 0.6 103/ul Normal 0.0-0.7 [facility] Comment on above: Performed By: #### C MP #### [facility] [address] [place] [address] Dr. Get Whitten Eosinophils/100 WBC (Bld) 5.2 % Normal 0.9-7.0 [facility] Comment on above: Performed By: #### C MP #### [facility] [address] [place] [address] Dr. Get Whitten Erythrocyte distribution width (RBC) [Ratio] 12.7 % Normal 11.0-15.0 [facility] Comment on above: Performed By: #### C MP #### [facility] [address] [place] [address] Dr. Get Whitten Hematocrit (Bld) [Volume fraction] 41.7 % Critically low 42.0-54.0 [facility] Comment on above: Performed By: #### C MP #### [facility] [address] [address] [address] Get Whitten Hemoglobin (Bld) [Mass/Vol] 14.9 g/dL Normal 14.0-18.0 [facility] Comment on above: Performed By: #### C MP #### [facility] [address] [address] [address] Get Whitten IG # 0.48 10e3/ul Critically high 0.00-0.03 [facility] Comment on above: Performed By: #### C MP #### [facility] [address] [address] [address] Get Whitten IG % 4.1 % Critically high 0.0-0.[address] [facility] Comment on above: Performed By: #### C MP #### [facility] [address] [address] [address] Get Whitten LYMPH # 1.4 103/ul Normal 1.2-3.8 [facility] Comment on above: Performed By: #### C MP #### [facility] [address] [address] [address] Get Whitten Lymphocytes/100 WBC (Bld) 11.9 % Critically low 20.5-60.0 [facility] Comment on above: Performed By: #### C MP #### [facility] [address] [address] [address] Get Whitten MANUAL DIFF REQ NO Normal [facility] Comment on above: Performed By: #### C MP #### [facility] [address] [address] [address] Get Whitten MCH (RBC) [Entitic mass] 36.8 pg Critically high 25.9-34.0 [facility] Comment on above: Performed By: #### C MP #### [facility] [address] [address] [address] Get Whitten MCHC (RBC) [Mass/Vol] 35.7 g/dL Critically high 29.9-35.2 [facility] Comment on above: Performed By: #### C MP #### [facility] [address] [address] [address] Get Whitten MCV (RBC) [Entitic vol] 103.0 fL Critically high 80.0-94.0 [facility] Comment on above: Performed By: #### C MP #### [facility] [address] [address] [address] Get Whitten MONO # 0.5 103/ul Normal 0.3-0.8 [facility] Comment on above: Performed By: #### C MP #### [facility] [address] [address] [address] Get Whitten Monocytes/100 WBC (Bld) 4.3 % Normal 1.7-12.0 [facility] Comment on above: Performed By: #### C MP #### [facility] [address] [place] [address] Dr. Gte Whitten NEUT # 8.6 103/ul Critically high 1.4-6.5 [facility] Comment on above: Performed By: #### C MP #### [facility] [address] [place] [address] Dr. Get Whitten Neutrophils/100 WBC (Bld) 73.7 % Normal 43.0-75.0 [facility] Comment on above: Performed By: #### C MP #### [facility] [address] [place] [address] Dr. Get Whitten Platelet mean volume (Bld) [Entitic vol] 9.0 fL Critically low 9.5-13.5 [facility] Comment on above: Performed By: #### C MP #### [facility] [address] [place] [address] Dr. Get Whitten PLT 244 103/ul Normal 150-450 [facility] Comment on above: Performed By: #### C MP #### [facility] [address] [place] [address] Dr. Get Whitten RBC 4.05 106/ul Critically low 4.70-6.[address] [facility] Comment on above: Performed By: #### C MP #### [facility] [address] [place] [address] Dr. Get Whitten WBC 11.7 103/ul Critically high 4.0-11.0 [facility] Comment on above: Performed By: #### C MP #### [facility] [address] [place] [address] Dr. Get Whitten CRPon 03-30-2022 CRP 0.3 mg/dL Normal <=1.0 [facility] Comment on above: Performed By: #### C MP, HSTROPN, BNP #### [facility] [address] [address] [address] Get Whitten CULTURE SPUTUMon 03-30-2022 CULTURE SPUTUM Culture Observations : METHICILLIN RESISTANT STAPH AUREUS ISOLATED. PLEASE FOLLOW APPROPRIATE ISOLATION PROCEDURES. Culture Observations: Gave MRSA result to Diana Matos RN on 03/30 @ 0822 Culture Observations: Growth of mold-like organism, sending [...] F Oxacillin >=4 R F Normal [facility] Comment on above: Performed By: #### B SOCIAL MEDIA DIRECTOR, T7, CMP, TSH #### [facility] [address] [place] [address] Dr. Get Whitten ECHO LIMITED STUDYon 022 ECHO LIMITED STUDY Patient: REHAN POOLE Exam Date: 03/30/2022 : 1965 Gender:M Ordering : DR PEE GUADALUPE . Admission #: [id number] Family : Order #: [id number] CLICK HERE TO VIEW EXAM ECHOCARDIOGRAM REPORT [...] Dominguez M.D. on 03/31/2022 at 19:42 Normal [facility] PROF 14(COMP METB)on 022 Albumin [Mass/Vol] 3.5 g/dL Normal 3.4-5.0 [facility] Comment on above: Performed By: #### C MP, HSTROPN, BNP #### [facility] [address] [address] [address] Get Whitten Albumin/Globulin [Mass ratio] 1.2 {ratio} Normal [facility] Comment on above: Performed By: #### C MP, HSTROPN, BNP #### [facility] [address] [address] [address] Get Whitten ALP [Catalytic activity/Vol] 58 U/L Normal 46-116 [facility] Comment on above: Performed By: #### C MP, HSTROPN, BNP #### [facility] [address] [address] [address] Get Whitten ALT [Catalytic activity/Vol] 108 U/L Critically high 16-63 [facility] Comment on above: Performed By: #### C MP, HSTROPN, BNP #### [facility] [address] [address] [address] Get Whitten Anion gap [Moles/Vol] 12.6 mmol/L Normal [facility] Comment on above: Performed By: #### C MP, HSTROPN, BNP #### [facility] [address] [place] [address] Dr. Get Whitten AST [Catalytic activity/Vol] 33 U/L Normal 15-37 [facility] Comment on above: Performed By: #### C MP, HSTROPN, BNP #### [facility] [address] [address] [address] Get Whitten Bilirubin [Mass/Vol] 0.6 mg/dL Normal 0.2-1.0 [facility] Comment on above: Performed By: #### C MP, HSTROPN, BNP #### [facility] [address] [address] [address] Get Whitten Calcium [Mass/Vol] 8.0 mg/dL Critically low 8.5-10.1 [facility] Comment on above: Performed By: #### C MP, HSTROPN, BNP #### [facility] [address] [address] [address] Get Whitten Chloride [Moles/Vol] 99 mmol/L Normal 98-107 [facility] Comment on above: Performed By: #### C MP, HSTROPN, BNP #### [facility] [address] [address] [address] Get Whitten CO2 [Moles/Vol] 22.0 mmol/L Normal 21.0-32.0 [facility] Comment on above: Performed By: #### C MP, HSTROPN, BNP #### [facility] [address] [place] [address] Dr. Get Whitten Creatinine [Mass/Vol] 1.12 mg/dL Normal 0.70-1.30 [facility] Comment on above: Performed By: #### C MP, HSTROPN, BNP #### [facility] [address] [place] [address] Dr. Get Whitten EGFR-AF VINCENTIAN >60 Normal >=60 [facility] Comment on above: Performed By: #### C MP, HSTROPN, BNP #### [facility] [address] [place] [address] Dr. Get Whitten EGFR-NON AF VINCENTIAN >60 Normal >=60 [facility] Comment on above: Performed By: #### C MP, HSTROPN, BNP #### [facility] [address] [place] [address] Dr. Get Whitten Globulin (S) [Mass/Vol] 3.0 g/dL Normal [facility] Comment on above: Performed By: #### C MP, HSTROPN, BNP #### [facility] [address] [place] [address] Dr. Get Whitten Glucose [Mass/Vol] 135 mg/dL Critically high 74-106 [facility] Comment on above: Performed By: #### C MP, HSTROPN, BNP #### [facility] [address] [address] [address] Get Whitten Potassium [Moles/Vol] 3.6 mmol/L Normal 3.5-5.1 [facility] Comment on above: Performed By: #### C MP, HSTROPN, BNP #### [facility] [address] [place] [address] Dr. Get Whitten Protein [Mass/Vol] 6.5 g/dL Normal 6.4-8.2 [facility] Comment on above: Performed By: #### C MP, HSTROPN, BNP #### [facility] [address] [place] [address] Dr. Get Whitten Sodium [Moles/Vol] 130 mmol/L Critically low 136-145 [facility] Comment on above: Performed By: #### C MP, HSTROPN, BNP #### [facility] [address] [place] [address] Dr. Get Whitten Urea nitrogen [Mass/Vol] 7.0 mg/dL Normal 7.0-18.0 [facility] Comment on above: Performed By: #### C MP, HSTROPN, BNP #### [facility] [address] [place] [address] Dr. Get Whitten Urea nitrogen/Creatinine [Mass ratio] 6.2 mg/mg Normal [facility] Comment on above: Performed By: #### C MP, HSTROPN, BNP #### [facility] [address] [place] [address] Dr. Get Whitten CARDIAC ANA 3-6on 2 CK [Catalytic activity/Vol] 51 U/L Normal 39-308 [facility] Comment on above: Performed By: #### C VDTBH #### [facility] [address] [place] [address] Dr. Get Whitten CK.MB [Mass/Vol] 1.89 ng/mL Normal <=3.60 [facility] Comment on above: Performed By: #### C VDTBH #### [facility] [address] [place] [address] Dr. Get Whitten HSTROP 14.4 pg/mL Normal 4.0-76.1 [facility] Comment on above: Result Comment: CUT- OFF POINTS HAVE BEEN ESTABLISHED BASED ON THE FOURTH UNIVERSAL DEFINITIONS OF MYOCARDIAL INFARCTION. THE UPPER REFERENCE LIMIT (URL) OF TROPONIN, DEFINED THE 99TH PERCENTILE OF cTnI DISTRIBUTION IN A REFERENCE POPULATION, HAS BEEN CONFIRMED THE DECISION THRESHOLD FOR [place] DIAGNOSIS. Performed By: #### C VDTBH #### [facility] [address] [place] [address] Dr. Get Whitten CARDIAC ANA ADMITon 022 CK [Catalytic activity/Vol] 128 U/L Normal 39-308 [facility] Comment on above: Performed By: #### C MP, HSTROPN, BNP #### [facility] [address] [place] [address] Dr. Get Whitten CK.MB [Mass/Vol] 2.22 ng/mL Normal <=3.60 [facility] Comment on above: Performed By: #### C MP, HSTROPN, BNP #### [facility] [address] [place] [address] Dr. Get Whitten HSTROP 11.2 pg/mL Normal 4.0-76.1 [facility] Comment on above: Result Comment: CUT- OFF POINTS HAVE BEEN ESTABLISHED BASED ON THE FOURTH UNIVERSAL DEFINITIONS OF MYOCARDIAL INFARCTION. THE UPPER REFERENCE LIMIT (URL) OF TROPONIN, DEFINED THE 99TH PERCENTILE OF cTnI DISTRIBUTION IN A REFERENCE POPULATION, HAS BEEN CONFIRMED THE DECISION THRESHOLD FOR [place] DIAGNOSIS. Performed By: #### C MP, HSTROPN, BNP #### [facility] [address] [place] [address] Dr. Get Whitten RAFA 40 ng/mL Normal 16-96 [facility] Comment on above: Performed By: #### C MP, HSTROPN, BNP #### [facility] [address] [place] [address] Dr. Get Whitten CBC AUTO DIFFon 03-29-2022 BASO # 0.1 103/ul Normal 0.0-0.1 [facility] Comment on above: Performed By: #### O SMOU #### [facility] [address] [place] [address] Dr. Get Whitten Basophils/100 WBC (Bld) 0.4 % Normal 0.2-2.0 [facility] Comment on above: Performed By: #### O SMOU #### [facility] [address] [place] [address] Dr. Get Whitten EO # 0.0 103/ul Normal 0.0-0.7 [facility] Comment on above: Performed By: #### O SMOU #### [facility] [address] [place] [address] Dr. Get Whitten Eosinophils/100 WBC (Bld) 0.1 % Critically low 0.9-7.0 [facility] Comment on above: Performed By: #### O SMOU #### [facility] [address] [place] [address] Dr. Get Whitten Erythrocyte distribution width (RBC) [Ratio] 12.8 % Normal 11.0-15.0 [facility] Comment on above: Performed By: #### O SMOU #### [facility] [address] [place] [address] Dr. Get Whitten Hematocrit (Bld) [Volume fraction] 42.1 % Normal 42.0-54.0 [facility] Comment on above: Performed By: #### O SMOU #### [facility] [address] [place] [address] Dr. Get Whitten Hemoglobin (Bld) [Mass/Vol] 15.3 g/dL Normal 14.0-18.0 [facility] Comment on above: Performed By: #### O SMOU #### [facility] [address] [place] [address] Dr. Get Whitten IG # 0.49 10e3/ul Critically high 0.00-0.03 [facility] Comment on above: Performed By: #### O SMOU #### [facility] [address] [place] [address] Dr. Get Whitten IG % 3.6 % Critically high 0.0-0.[address] [facility] Comment on above: Performed By: #### O SMOU #### [facility] [address] [place] [address] Dr. Get Whitten LYMPH # 2.2 103/ul Normal 1.2-3.8 [facility] Comment on above: Performed By: #### O SMOU #### [facility] [address] [place] [address] Dr. Get Whitten Lymphocytes/100 WBC (Bld) 16.1 % Critically low 20.5-60.0 [facility] Comment on above: Performed By: #### O SMOU #### [facility] [address] [place] [address] Dr. Get Whitten MANUAL DIFF REQ NO Normal [facility] Comment on above: Performed By: #### O SMOU #### [facility] [address] [place] [address] Dr. Get Whitten MCH (RBC) [Entitic mass] 36.3 pg Critically high 25.9-34.0 [facility] Comment on above: Performed By: #### O SMOU #### [facility] [address] [place] [address] Dr. Get Whitten MCHC (RBC) [Mass/Vol] 36.3 g/dL Critically high 29.9-35.2 [facility] Comment on above: Performed By: #### O SMOU #### [facility] [address] [place] [address] Dr. Get Whitten MCV (RBC) [Entitic vol] 100.0 fL Critically high 80.0-94.0 [facility] Comment on above: Performed By: #### O SMOU #### [facility] [address] [place] [address] Dr. Get Whitten MONO # 1.1 103/ul Critically high 0.3-0.[address] [facility] Comment on above: Performed By: #### O SMOU #### [facility] [address] [place] [address] Dr. Get Whitten Monocytes/100 WBC (Bld) 8.3 % Normal 1.7-12.0 [facility] Comment on above: Performed By: #### O SMOU #### [facility] [address] [place] [address] Dr. Get Whitten NEUT # 9.6 103/ul Critically high 1.4-6.[address] [facility] Comment on above: Performed By: #### O SMOU #### [facility] [address] [place] [address] Dr. Get Whitten Neutrophils/100 WBC (Bld) 71.5 % Normal 43.0-75.0 [facility] Comment on above: Performed By: #### O SMOU #### [facility] [address] [address] [address] Get Whitten Platelet mean volume (Bld) [Entitic vol] 9.1 fL Critically low 9.5-13.5 [facility] Comment on above: Performed By: #### O SMOU #### [facility] [address] [place] [address] Dr. Get Whitten PLT 228 103/ul Normal 150-450 [facility] Comment on above: Performed By: #### O SMOU #### [facility] [address] [address] [address] Get Whitten RBC 4.21 106/ul Critically low 4.70-6.[address] [facility] Comment on above: Performed By: #### O SMOU #### [facility] [address] [place] [address] Dr. Get Whitten WBC 13.4 103/ul Critically high 4.0-11.0 [facility] Comment on above: Performed By: #### O SMOU #### [facility] [address] [place] [address] Dr. Get Whitten Covid-19 PCR (CVDTB)on 03-16 SARS-CoV-2 (COVID-19) RNA ASHLEE+probe Ql (Unsp spec) Detected Critically abnormal NOT DETECTED [facility] Comment on above: Result Comment: This test is not yet approved or cleared by the [place] FDA. When there are no FDA-approved or cleared tests available, and other criteria are met, FDA can make tests available under an emergency access mechanism called an Emergency Use Authorization (EUA). The EUA for this test is supported by the [place] of Health and Human Service's declaration that [...] used). Performed By: #### C VDTBH #### [facility] [address] [place] [address] Dr. Get Whitten OSMOLALITYon 03-29-2022 Osmolality [Osmolality] 257 mosm/kg Critically low 275-295 [facility] Comment on above: Performed By: #### C VDTBH #### [facility] [address] [place] [address] Dr. Get Whitten OSMOLALITY URINEon 2 Osmolality, Urine 251 mOsmol/kg Normal [facility] Comment on above: Result Comment: 24 h r : 300 - 900 Random: 50 - 1400 After 12hr fluid restriction: >850 Performed By: #### O SMOU #### [facility] [address] [place] [address] Dr. Get Whitten PROF CHEM 8 (BAS METB)on Anion gap [Moles/Vol] 17.1 mmol/L Normal [facility] Comment on above: Performed By: #### C MP, HSTROPN, BNP #### [facility] [address] [place] [address] Dr. Get Whitten Calcium [Mass/Vol] 8.4 mg/dL Critically low 8.5-10.1 [facility] Comment on above: Performed By: #### C MP, HSTROPN, BNP #### [facility] [address] [place] [address] Dr. Get Whitten Chloride [Moles/Vol] 98 mmol/L Normal 98-107 [facility] Comment on above: Performed By: #### C MP, HSTROPN, BNP #### [facility] [address] [place] [address] Dr. Get Whitten CO2 [Moles/Vol] 18.1 mmol/L Critically low 21.0-32.0 [facility] Comment on above: Performed By: #### C MP, HSTROPN, BNP #### [facility] [address] [place] [address] Dr. Get Whitten Creatinine [Mass/Vol] 0.98 mg/dL Normal 0.70-1.30 [facility] Comment on above: Performed By: #### C MP, HSTROPN, BNP #### [facility] [address] [place] [address] Dr. Get Whitten EGFR-AF VINCENTIAN >60 Normal >=60 [facility] Comment on above: Performed By: #### C MP, HSTROPN, BNP #### [facility] [address] [address] [address] Get Whitten EGFR-NON AF VINCENTIAN >60 Normal >=60 [facility] Comment on above: Performed By: #### C MP, HSTROPN, BNP #### [facility] [address] [address] [address] Get Whitten Glucose [Mass/Vol] 94 mg/dL Normal 74-106 [facility] Comment on above: Performed By: #### C FILOMENA HSTROPN, BNP #### [facility] [address] [address] [address] Get Whitten Potassium [Moles/Vol] 4.2 mmol/L Normal 3.5-5.1 [facility] Comment on above: Performed By: #### C FILOMENA HSTROPN, BNP #### [facility] [address] [address] [address] Get Whitten Sodium [Moles/Vol] 129 mmol/L Critically low 136-145 [facility] Comment on above: Performed By: #### C FILOMENA HSTROPN, BNP #### [facility] [address] [address] [address] Get Whitten Urea nitrogen [Mass/Vol] 8.0 mg/dL Normal 7.0-18.0 [facility] Comment on above: Performed By: #### C MP, HSTROPN, BNP #### [facility] [address] [address] [address] Get Whitten Urea nitrogen/Creatinine [Mass ratio] 8.2 mg/mg Normal [facility] Comment on above: Performed By: #### C FILOMENA HSTROPN, BNP #### [facility] [address] [address] [address] Get Whitten XR CHEST 1 Von [...] by: GARETH ROMERO Date: 2022-03-29 18:30 Normal [facility] BNPon 03-28-2022 Natriuretic peptide B (Bld) [Mass/Vol] 401.0 pg/mL Normal <=900.0 [facility] Comment on above: Performed By: #### B SOCIAL MEDIA DIRECTOR, T7, CMP, TSH #### [facility] [address] [place] [address] Dr. Get Whitten CBC W MANUAL DIFFon 03-28-20 22 ATYPICAL LYMPH # Normal [facility] Comment on above: Performed By: #### B SOCIAL MEDIA DIRECTOR, T7, CMP, TSH #### [facility] [address] [place] [address] Dr. Get Whitten ATYPICAL LYMPH % Normal [facility] Comment on above: Performed By: #### B SOCIAL MEDIA DIRECTOR, T7, CMP, TSH #### [facility] [address] [place] [address] Dr. Get Whitten BAND # 0.3 103/ul Normal 0.0-0.3 [facility] Comment on above: Performed By: #### B SOCIAL MEDIA DIRECTOR, T7, CMP, TSH #### [facility] [address] [place] [address] Dr. Get Whitten BAND % 2 % Normal 0-5 [facility] Comment on above: Performed By: #### B SOCIAL MEDIA DIRECTOR, T7, CMP, TSH #### [facility] [address] [place] [address] Dr. Get Whitten BASOM # 0.00 103/ul Normal 0.00-0.10 [facility] Comment on above: Performed By: #### B SOCIAL MEDIA DIRECTOR, T7, CMP, TSH #### [facility] [address] [place] [address] Dr. Get Whitten BASOM % 0.0 % Critically low 0.2-2.0 The [facility] Comment on above: Performed By: #### B SOCIAL MEDIA DIRECTOR, T7, CMP, TSH #### [facility] [address] [address] [address] Get Whitten BLAST # Normal [facility] Comment on above: Performed By: #### B SOCIAL MEDIA DIRECTOR, T7, CMP, TSH #### [facility] [address] [address] [address] Get Whitten BLAST % Normal [facility] Comment on above: Performed By: #### B SOCIAL MEDIA DIRECTOR, T7, CMP, TSH #### [facility] [address] [address] [address] Get Whitten CORRECTED WBC Normal 4.0-11.0 [facility] Comment on above: Performed By: #### B SOCIAL MEDIA DIRECTOR, T7, CMP, TSH #### [facility] [address] [place] [address] Dr. Get Whitten EOS # 0.00 103/ul Normal 0.00-0.70 [facility] Comment on above: Performed By: #### B SOCIAL MEDIA DIRECTOR, T7, CMP, TSH #### [facility] [address] [place] [address] Dr. Get Whitten EOS% 0.0 % Critically low 0.9-7.0 [facility] Comment on above: Performed By: #### B SOCIAL MEDIA DIRECTOR, T7, CMP, TSH #### [facility] [address] [place] [address] Dr. Get Whitten HCT 36.3 % Critically low 42.0-54.0 [facility] Comment on above: Performed By: #### B SOCIAL MEDIA DIRECTOR, T7, CMP, TSH #### [facility] [address] [place] [address] Dr. Get Whitten HGB 12.9 g/dl Critically low 14.0-18.0 [facility] Comment on above: Performed By: #### B SOCIAL MEDIA DIRECTOR, T7, CMP, TSH #### [facility] [address] [place] [address] Dr. Get Whitten HYPERSEG NEUT SLIGHT Normal [facility] Comment on above: Performed By: #### B SOCIAL MEDIA DIRECTOR, T7, CMP, TSH #### [facility] [address] [address] [address] Get Whitten LYMPHM # 0.89 103/ul Critically low 1.20-3.80 [facility] Comment on above: Performed By: #### B SOCIAL MEDIA DIRECTOR, T7, CMP, TSH #### [facility] [address] [address] [address] Get Whitten LYMPHM% 7.0 % Critically low 20.5-60.0 [facility] Comment on above: Performed By: #### B SOCIAL MEDIA DIRECTOR, T7, CMP, TSH #### [facility] [address] [place] [address] Dr. Get Whitten MCH 36.5 pg Critically high 25.9-34.[address] [facility] Comment on above: Performed By: #### B SOCIAL MEDIA DIRECTOR, T7, CMP, TSH #### [facility] [address] [place] [address] Dr. Get Whitten MCHC 35.5 g/dl Critically high 29.9-35.[address] [facility] Comment on above: Performed By: #### B SOCIAL MEDIA DIRECTOR, T7, CMP, TSH #### [facility] [address] [place] [address] Dr. Get Whitten MCV 102.8 fL Critically high 80.0-94.0 [facility] Comment on above: Performed By: #### B SOCIAL MEDIA DIRECTOR, T7, CMP, TSH #### [facility] [address] [address] [address] Get Whitten METAMYELOCYTE # Normal [facility] Comment on above: Performed By: #### B SOCIAL MEDIA DIRECTOR, T7, CMP, TSH #### [facility] [address] [place] [address] Dr. Get Whitten METAMYELOCYTE % Normal [facility] Comment on above: Performed By: #### B SOCIAL MEDIA DIRECTOR, T7, CMP, TSH #### [facility] [address] [place] [address] Dr. Get Whitten MONOM# 1.02 103/ul Critically high 0.30-0.80 [facility] Comment on above: Performed By: #### B SOCIAL MEDIA DIRECTOR, T7, CMP, TSH #### [facility] [address] [address] [address] Get Whitten MONOM% 8.0 % Normal 1.7-12.0 [facility] Comment on above: Performed By: #### B SOCIAL MEDIA DIRECTOR, T7, CMP, TSH #### [facility] [address] [address] [address] Get Whitten MPV 9.1 fL Critically low 9.5-13.5 [facility] Comment on above: Performed By: #### B SOCIAL MEDIA DIRECTOR, T7, CMP, TSH #### [facility] [address] [place] [address] Dr. Get Whitten MYELOCYTE # Normal [facility] Comment on above: Performed By: #### B SOCIAL MEDIA DIRECTOR, T7, CMP, TSH #### [facility] [address] [place] [address] Dr. Get Whitten MYELOCYTE % Normal [facility] Comment on above: Performed By: #### B SOCIAL MEDIA DIRECTOR, T7, CMP, TSH #### [facility] [address] [place] [address] Dr. Get Whitten NRBC Normal [facility] Comment on above: Performed By: #### B SOCIAL MEDIA DIRECTOR, T7, CMP, TSH #### [facility] [address] [place] [address] Dr. Get Whitten PLT 181 103/ul Normal 150-450 [facility] Comment on above: Performed By: #### B SOCIAL MEDIA DIRECTOR, T7, CMP, TSH #### [facility] [address] [address] [address] Get Whitten RBC 3.53 106/ul Critically low 4.70-6.[address] [facility] Comment on above: Performed By: #### B SOCIAL MEDIA DIRECTOR, T7, CMP, TSH #### [facility] [address] [place] [address] Dr. Get Whitten RDW 12.7 % Normal 11.0-15.0 [facility] Comment on above: Performed By: #### B SOCIAL MEDIA DIRECTOR, T7, CMP, TSH #### [facility] [address] [place] [address] Dr. Get Whitten SEG # 10.54 103/ul Critically high 1.40-6.50 [facility] Comment on above: Performed By: #### B SOCIAL MEDIA DIRECTOR, T7, CMP, TSH #### [facility] [address] [address] [address] Get Whitten SEG % 83.0 % Critically high 43.0-75.0 [facility] Comment on above: Performed By: #### B SOCIAL MEDIA DIRECTOR, T7, CMP, TSH #### [facility] [address] [address] [address] Get Whitten WBC 12.7 103/ul Critically high 4.0-11.0 [facility] Comment on above: Performed By: #### B SOCIAL MEDIA DIRECTOR, T7, CMP, TSH #### [facility] [address] [address] [address] Get Whitten PROF 14(COMP METB)on 022 Albumin [Mass/Vol] 3.0 g/dL Critically low 3.4-5.0 [facility] Comment on above: Performed By: #### B SOCIAL MEDIA DIRECTOR, T7, CMP, TSH #### [facility] [address] [address] [address] Get Whitten Albumin/Globulin [Mass ratio] 1.2 {ratio} Normal [facility] Comment on above: Performed By: #### B SOCIAL MEDIA DIRECTOR, T7, CMP, TSH #### [facility] [address] [address] [address] Get Whitten ALP [Catalytic activity/Vol] 39 U/L Critically low 46-116 [facility] Comment on above: Performed By: #### B SOCIAL MEDIA DIRECTOR, T7, CMP, TSH #### [facility] [address] [address] [address] Get Whitten ALT [Catalytic activity/Vol] 94 U/L Critically high 16-63 [facility] Comment on above: Performed By: #### B SOCIAL MEDIA DIRECTOR, T7, CMP, TSH #### [facility] [address] [address] [address] Get Whitten Anion gap [Moles/Vol] 11.4 mmol/L Normal [facility] Comment on above: Performed By: #### B SOCIAL MEDIA DIRECTOR, T7, CMP, TSH #### [facility] [address] [address] [address] Get Whitten AST [Catalytic activity/Vol] 37 U/L Normal 15-37 [facility] Comment on above: Performed By: #### B SOCIAL MEDIA DIRECTOR, T7, CMP, TSH #### [facility] [address] [address] [address] Get Whitten Bilirubin [Mass/Vol] 0.4 mg/dL Normal 0.2-1.0 [facility] Comment on above: Performed By: #### B SOCIAL MEDIA DIRECTOR, T7, CMP, TSH #### [facility] [address] [place] [address] Dr. Get Whitten Calcium [Mass/Vol] 7.9 mg/dL Critically low 8.5-10.1 [facility] Comment on above: Performed By: #### B SOCIAL MEDIA DIRECTOR, T7, CMP, TSH #### [facility] [address] [place] [address] Dr. Get Whitten Chloride [Moles/Vol] 102 mmol/L Normal 98-107 [facility] Comment on above: Performed By: #### B SOCIAL MEDIA DIRECTOR, T7, CMP, TSH #### [facility] [address] [place] [address] Dr. Get Whitten CO2 [Moles/Vol] 21.0 mmol/L Normal 21.0-32.0 [facility] Comment on above: Performed By: #### B SOCIAL MEDIA DIRECTOR, T7, CMP, TSH #### [facility] [address] [place] [address] Dr. Get Whitten Creatinine [Mass/Vol] 1.07 mg/dL Normal 0.70-1.30 [facility] Comment on above: Performed By: #### B SOCIAL MEDIA DIRECTOR, T7, CMP, TSH #### [facility] [address] [place] [address] Dr. Get Whitten EGFR-AF VINCENTIAN >86 Normal >=60 [facility] Comment on above: Performed By: #### B SOCIAL MEDIA DIRECTOR, T7, CMP, TSH #### [facility] [address] [place] [address] Dr. Get Whitten EGFR-NON AF VINCENTIAN >60 Normal >=60 [facility] Comment on above: Performed By: #### B SOCIAL MEDIA DIRECTOR, T7, CMP, TSH #### [facility] [address] [address] [address] Get Whitten Globulin (S) [Mass/Vol] 2.6 g/dL Normal [facility] Comment on above: Performed By: #### B SOCIAL MEDIA DIRECTOR, T7, CMP, TSH #### [facility] [address] [address] [address] Get Whitten Glucose [Mass/Vol] 132 mg/dL Critically high 74-106 [facility] Comment on above: Performed By: #### B SOCIAL MEDIA DIRECTOR, T7, CMP, TSH #### [facility] [address] [place] [address] Dr. Get Whitten Potassium [Moles/Vol] 3.4 mmol/L Critically low 3.5-5.1 [facility] Comment on above: Performed By: #### B SOCIAL MEDIA DIRECTOR, T7, CMP, TSH #### [facility] [address] [place] [address] Dr. Get Whitten Protein [Mass/Vol] 5.6 g/dL Critically low 6.4-8.2 [facility] Comment on above: Performed By: #### B SOCIAL MEDIA DIRECTOR, T7, CMP, TSH #### [facility] [address] [place] [address] Dr. Get Whitten Sodium [Moles/Vol] 131 mmol/L Critically low 136-145 [facility] Comment on above: Performed By: #### B SOCIAL MEDIA DIRECTOR, T7, CMP, TSH #### [facility] [address] [place] [address] Dr. Get Whitten Urea nitrogen [Mass/Vol] 16.0 mg/dL Normal 7.0-18.0 [facility] Comment on above: Performed By: #### B SOCIAL MEDIA DIRECTOR, T7, CMP, TSH #### [facility] [address] [place] [address] Dr. Get Whitten Urea nitrogen/Creatinine [Mass ratio] 15.0 mg/mg [facility] Comment on above: Performed By: #### B SOCIAL MEDIA DIRECTOR, T7, CMP, TSH #### [facility] [address] [place] [address] Dr. Get Whitten T3, TOTAL (TRIIODOTHYRONINE) on 03-28-2022 T3, TOTAL <20 Critically low 71-180 [facility] Comment on above: Performed By: #### C MP, HSTROPN, BNP #### [facility] [address] [place] [address] Dr. Get Whitten T4 [facility]on 03-28-2022 T4 [Mass/Vol] 0.7 ug/dL Invalid Interpretation Code 4.5-12.0 [facility] Comment on above: Performed By: #### C VDTBH #### [facility] [address] [place] [address] Dr. Get Whitten BNPon 03-27-2022 Natriuretic peptide B (Bld) [Mass/Vol] 340.0 pg/mL Normal <=900.0 [facility] Comment on above: Performed By: #### B SOCIAL MEDIA DIRECTOR, T7, CMP, TSH #### [facility] [address] [place] [address] Dr. Get Whitten CBC AUTO DIFFon 03-27-2022 BASO # 0.0 103/ul Normal 0.0-0.1 [facility] Comment on above: Performed By: #### C MP, HSTROPN, BNP #### [facility] [address] [place] [address] Dr. Get Whitten Basophils/100 WBC (Bld) 0.1 % Critically low 0.2-2.0 [facility] Comment on above: Performed By: #### C MP, HSTROPN, BNP #### [facility] [address] [place] [address] Dr. Get Whitten EO # 0.0 103/ul Normal 0.0-0.7 [facility] Comment on above: Performed By: #### C MP, HSTROPN, BNP #### [facility] [address] [place] [address] Dr. Get Whitten Eosinophils/100 WBC (Bld) 0.1 % Critically low 0.9-7.0 [facility] Comment on above: Performed By: #### C MP, HSTROPN, BNP #### [facility] [address] [address] [address] Get Whitten Erythrocyte distribution width (RBC) [Ratio] 12.7 % Normal 11.0-15.0 [facility] Comment on above: Performed By: #### C MP, HSTROPN, BNP #### [facility] [address] [address] [address] Get Whitten Hematocrit (Bld) [Volume fraction] 38.7 % Critically low 42.0-54.0 [facility] Comment on above: Performed By: #### C MP, HSTROPN, BNP #### [facility] [address] [address] [address] Get Whitten Hemoglobin (Bld) [Mass/Vol] 13.6 g/dL Critically low 14.0-18.0 [facility] Comment on above: Performed By: #### C MP, HSTROPN, BNP #### [facility] [address] [address] [address] Get Whitten IG # 1.95 10e3/ul Critically high 0.00-0.03 [facility] Comment on above: Performed By: #### C MP, HSTROPN, BNP #### [facility] [address] [address] [address] Get Whitten IG % 16.0 % Critically high 0.0-0.[address] [facility] Comment on above: Performed By: #### C MP, HSTROPN, BNP #### [facility] [address] [address] [address] Get Whitten LYMPH # 1.7 103/ul Normal 1.2-3.8 [facility] Comment on above: Performed By: #### C MP, HSTROPN, BNP #### [facility] [address] [address] [address] Get Whitten Lymphocytes/100 WBC (Bld) 13.8 % Critically low 20.5-60.0 [facility] Comment on above: Performed By: #### C MP, HSTROPN, BNP #### [facility] [address] [place] [address] Dr. Get Whitten MANUAL DIFF REQ NO Normal [facility] Comment on above: Performed By: #### C MP, HSTROPN, BNP #### [facility] [address] [place] [address] Dr. Get Whitten MCH (RBC) [Entitic mass] 36.2 pg Critically high 25.9-34.0 [facility] Comment on above: Performed By: #### C MP, HSTROPN, BNP #### [facility] [address] [place] [address] Dr. Get Whitten MCHC (RBC) [Mass/Vol] 35.1 g/dL Normal 29.9-35.2 [facility] Comment on above: Performed By: #### C MP, HSTROPN, BNP #### [facility] [address] [place] [address] Dr. Get Whitten MCV (RBC) [Entitic vol] 102.9 fL Critically high 80.0-94.0 [facility] Comment on above: Performed By: #### C MP, HSTROPN, BNP #### [facility] [address] [place] [address] Dr. Get Whitten MONO # 0.4 103/ul Normal 0.3-0.8 [facility] Comment on above: Performed By: #### C MP, HSTROPN, BNP #### [facility] [address] [place] [address] Dr. Get Whitten Monocytes/100 WBC (Bld) 3.3 % Normal 1.7-12.0 [facility] Comment on above: Performed By: #### C MP, HSTROPN, BNP #### [facility] [address] [place] [address] Dr. Get Whitten NEUT # 8.2 103/ul Critically high 1.4-6.[address] [facility] Comment on above: Performed By: #### C MP, HSTROPN, BNP #### [facility] [address] [place] [address] Dr. Get Whitten Neutrophils/100 WBC (Bld) 66.7 % Normal 43.0-75.0 [facility] Comment on above: Performed By: #### C MP, HSTROPN, BNP #### [facility] [address] [place] [address] Dr. Get Whitten Platelet mean volume (Bld) [Entitic vol] 9.2 fL Critically low 9.5-13.5 [facility] Comment on above: Performed By: #### C MP, HSTROPN, BNP #### [facility] [address] [place] [address] Dr. Get Whitten PLT 167 103/ul Normal 150-450 [facility] Comment on above: Performed By: #### C MP, HSTROPN, BNP #### [facility] [address] [place] [address] Dr. Get Whitten RBC 3.76 106/ul Critically low 4.70-6.10 [facility] Comment on above: Performed By: #### C MP, HSTROPN, BNP #### [facility] [address] [place] [address] Dr. Get Whitten WBC 12.2 103/ul Critically high 4.0-11.0 [facility] Comment on above: Performed By: #### C MP, HSTROPN, BNP #### [facility] [address] [place] [address] Dr. Get Whitten PROF 14(COMP METB)on 022 Albumin [Mass/Vol] 3.1 g/dL Critically low 3.4-5.0 [facility] Comment on above: Performed By: #### B SOCIAL MEDIA DIRECTOR, T7, CMP, TSH #### [facility] [address] [place] [address] Dr. Get Whitten Albumin/Globulin [Mass ratio] 1.1 {ratio} Normal [facility] Comment on above: Performed By: #### B SOCIAL MEDIA DIRECTOR, T7, CMP, TSH #### [facility] [address] [address] [address] Get Whitten ALP [Catalytic activity/Vol] 44 U/L Critically low 46-116 [facility] Comment on above: Performed By: #### B SOCIAL MEDIA DIRECTOR, T7, CMP, TSH #### [facility] [address] [address] [address] Get Whitten ALT [Catalytic activity/Vol] 87 U/L Critically high 16-63 [facility] Comment on above: Performed By: #### B SOCIAL MEDIA DIRECTOR, T7, CMP, TSH #### [facility] [address] [address] [address] Get Whitten Anion gap [Moles/Vol] 12.6 mmol/L Normal [facility] Comment on above: Performed By: #### B SOCIAL MEDIA DIRECTOR, T7, CMP, TSH #### [facility] [address] [address] [address] Get Whitten AST [Catalytic activity/Vol] 38 U/L Critically high 15-37 [facility] Comment on above: Performed By: #### B SOCIAL MEDIA DIRECTOR, T7, CMP, TSH #### [facility] [address] [address] [address] Get Whitten Bilirubin [Mass/Vol] 0.4 mg/dL Normal 0.2-1.0 [facility] Comment on above: Performed By: #### B SOCIAL MEDIA DIRECTOR, T7, CMP, TSH #### [facility] [address] [address] [address] Get Whitten Calcium [Mass/Vol] 7.7 mg/dL Critically low 8.5-10.1 [facility] Comment on above: Performed By: #### B SOCIAL MEDIA DIRECTOR, T7, CMP, TSH #### [facility] [address] [address] [address] Get Whitten Chloride [Moles/Vol] 97 mmol/L Critically low 98-107 [facility] Comment on above: Performed By: #### B SOCIAL MEDIA DIRECTOR, T7, CMP, TSH #### [facility] [address] [address] [address] Get Whitten CO2 [Moles/Vol] 22.1 mmol/L Normal 21.0-32.0 [facility] Comment on above: Performed By: #### B SOCIAL MEDIA DIRECTOR, T7, CMP, TSH #### [facility] [address] [address] [address] Get Whitten Creatinine [Mass/Vol] 1.17 mg/dL Normal 0.70-1.30 [facility] Comment on above: Performed By: #### B SOCIAL MEDIA DIRECTOR, T7, CMP, TSH #### [facility] [address] [place] [address] Dr. Get Whitten EGFR-AF VINCENTIAN >60 Normal >=60 [facility] Comment on above: Performed By: #### B SOCIAL MEDIA DIRECTOR, T7, CMP, TSH #### [facility] [address] [place] [address] Dr. Get Whitten EGFR-NON AF VINCENTIAN >60 Normal >=60 [facility] Comment on above: Performed By: #### B SOCIAL MEDIA DIRECTOR, T7, CMP, TSH #### [facility] [address] [place] [address] Dr. Get Whitten Globulin (S) [Mass/Vol] 2.7 g/dL Normal [facility] Comment on above: Performed By: #### B SOCIAL MEDIA DIRECTOR, T7, CMP, TSH #### [facility] [address] [place] [address] Dr. eGt Whitten Glucose [Mass/Vol] 165 mg/dL Critically high 74-106 [facility] Comment on above: Performed By: #### B SOCIAL MEDIA DIRECTOR, T7, CMP, TSH #### [facility] [address] [place] [address] Dr. Get Whitten Potassium [Moles/Vol] 3.7 mmol/L Normal 3.5-5.1 [facility] Comment on above: Performed By: #### B SOCIAL MEDIA DIRECTOR, T7, CMP, TSH #### [facility] [address] [place] [address] Dr. Get Whitten Protein [Mass/Vol] 5.8 g/dL Critically low 6.4-8.2 Th [facility] Comment on above: Performed By: #### B SOCIAL MEDIA DIRECTOR, T7, CMP, TSH #### [facility] [address] [place] [address] Dr. Get Whitten Sodium [Moles/Vol] 128 mmol/L Critically low 136-145 Th e [facility] Comment on above: Performed By: #### B SOCIAL MEDIA DIRECTOR, T7, CMP, TSH #### [facility] [address] [place] [address] Dr. Get Whitten Urea nitrogen [Mass/Vol] 17.0 mg/dL Normal 7.0-18.0 [facility] Comment on above: Performed By: #### B SOCIAL MEDIA DIRECTOR, T7, CMP, TSH #### [facility] [address] [place] [address] Dr. Get Whitten Urea nitrogen/Creatinine [Mass ratio] 14.5 mg/mg Normal [facility] Comment on above: Performed By: #### B SOCIAL MEDIA DIRECTOR, T7, CMP, TSH #### [facility] [address] [place] [address] Dr. Get Whitten SODIUM RANDOM URINEon 2021 Sodium (U) [Moles/Vol] 6 mmol/L Critically low 30-90 [facility] Comment on above: Performed By: #### B SOCIAL MEDIA DIRECTOR, T7, CMP, TSH #### [facility] [address] [place] [address] Dr. Get Whitten BNPon 03-26-2022 Natriuretic peptide B (Bld) [Mass/Vol] 472.0 pg/mL Normal <=900.0 [facility] Comment on above: Performed By: #### C MP, HSTROPN, BNP #### [facility] [address] [place] [address] Dr. Get Whitten CARDIAC ANA 3-6on 2 CK [Catalytic activity/Vol] 53 U/L Normal 39-308 [facility] Comment on above: Performed By: #### C VDTBH #### [facility] [address] [place] [address] Dr. Get Whitten CK.MB [Mass/Vol] 1.61 ng/mL Normal <=3.60 [facility] Comment on above: Performed By: #### C VDTBH #### [facility] [address] [place] [address] Dr. Get Whitten HSTROP 20.2 pg/mL Normal 4.0-76.1 [facility] Comment on above: Result Comment: CUT- OFF POINTS HAVE BEEN ESTABLISHED BASED ON THE FOURTH UNIVERSAL DEFINITIONS OF MYOCARDIAL INFARCTION. THE UPPER REFERENCE LIMIT (URL) OF TROPONIN, DEFINED THE 99TH PERCENTILE OF cTnI DISTRIBUTION IN A REFERENCE POPULATION, HAS BEEN CONFIRMED THE DECISION THRESHOLD FOR [place] DIAGNOSIS. Performed By: #### C VDTBH #### [facility] [address] [place] [address] Dr. Get Whitten CK [Catalytic activity/Vol] 40 U/L Normal 39-308 [facility] Comment on above: Performed By: #### B SOCIAL MEDIA DIRECTOR, T7, CMP, TSH #### [facility] [address] [place] [address] Dr. Get Whitten CK.MB [Mass/Vol] 1.53 ng/mL Normal <=3.60 [facility] Comment on above: Performed By: #### B SOCIAL MEDIA DIRECTOR, T7, CMP, TSH #### [facility] [address] [place] [address] Dr. Get Whitten HSTROP 23.6 pg/mL Normal 4.0-76.1 [facility] Comment on above: Result Comment: CUT- OFF POINTS HAVE BEEN ESTABLISHED BASED ON THE FOURTH UNIVERSAL DEFINITIONS OF MYOCARDIAL INFARCTION. THE UPPER REFERENCE LIMIT (URL) OF TROPONIN, DEFINED THE 99TH PERCENTILE OF cTnI DISTRIBUTION IN A REFERENCE POPULATION, HAS BEEN CONFIRMED THE DECISION THRESHOLD FOR [place] DIAGNOSIS. Performed By: #### B SOCIAL MEDIA DIRECTOR, T7, CMP, TSH #### [facility] [address] [place] [address] Dr. Get Whitten CBC W MANUAL DIFFon 03-26-20 22 ATYPICAL LYMPH # Normal [facility] Comment on above: Performed By: #### C MP, HSTROPN, BNP #### [facility] [address] [place] [address] Dr. Get Whitten ATYPICAL LYMPH % Normal [facility] Comment on above: Performed By: #### C MP, HSTROPN, BNP #### [facility] [address] [place] [address] Dr. Get Whitten BAND # 0.5 103/ul Critically high 0.0-0.3 [facility] Comment on above: Performed By: #### C MP, HSTROPN, BNP #### [facility] [address] [address] [address] Get Whitten BAND % 4 % Normal 0-5 [facility] Comment on above: Performed By: #### C MP, HSTROPN, BNP #### [facility] [address] [address] [address] Get Whitten BASOM # 0.00 103/ul Normal 0.00-0.10 [facility] Comment on above: Performed By: #### C MP, HSTROPN, BNP #### [facility] [address] [place] [address] Dr. Get Whitten BASOM % 0.0 % Critically low 0.2-2.0 [facility] Comment on above: Performed By: #### C MP, HSTROPN, BNP #### [facility] [address] [place] [address] Dr. Get Whitten BLAST # Normal [facility] Comment on above: Performed By: #### C MP, HSTROPN, BNP #### [facility] [address] [place] [address] Dr. Get Whitten BLAST % Normal [facility] Comment on above: Performed By: #### C MP, HSTROPN, BNP #### [facility] [address] [place] [address] Dr. Get Whitten CORRECTED WBC Normal 4.0-11.0 [facility] Comment on above: Performed By: #### C MP, HSTROPN, BNP #### [facility] [address] [place] [address] Dr. Get Whitten EOS # 0.00 103/ul Normal 0.00-0.70 [facility] Comment on above: Performed By: #### C MP, HSTROPN, BNP #### [facility] [address] [address] [address] Get Whitten EOS% 0.0 % Critically low 0.9-7.0 [facility] Comment on above: Performed By: #### C MP, HSTROPN, BNP #### [facility] [address] [address] [address] Get Whitten HCT 44.0 % Normal 42.0-54.0 [facility] Comment on above: Performed By: #### C MP, HSTROPN, BNP #### [facility] [address] [address] [address] Get Whitten HGB 15.8 g/dl Normal 14.0-18.0 [facility] Comment on above: Performed By: #### C MP, HSTROPN, BNP #### [facility] [address] [place] [address] Dr. Get Whitten HYPERSEG NEUT 2+ Normal [facility] Comment on above: Performed By: #### C MP, HSTROPN, BNP #### [facility] [address] [place] [address] Dr. Get Whitten LYMPHM # 1.56 103/ul Normal 1.20-3.80 [facility] Comment on above: Performed By: #### C MP, HSTROPN, BNP #### [facility] [address] [address] [address] Get Whitten LYMPHM% 13.0 % Critically low 20.5-60.0 [facility] Comment on above: Performed By: #### C MP, HSTROPN, BNP #### [facility] [address] [address] [address] Get Whitten MCH 36.2 pg Critically high 25.9-34.[address] [facility] Comment on above: Performed By: #### C MP, HSTROPN, BNP #### [facility] [address] [place] [address] Dr. Get Whitten MCHC 35.9 g/dl Critically high 29.9-35.2 [facility] Comment on above: Performed By: #### C MP, HSTROPN, BNP #### [facility] [address] [address] [address] Get Whitten MCV 100.7 fL Critically high 80.0-94.0 [facility] Comment on above: Performed By: #### C MP, HSTROPN, BNP #### [facility] [address] [place] [address] Dr. Get Whitten METAMYELOCYTE # Normal [facility] Comment on above: Performed By: #### C MP, HSTROPN, BNP #### [facility] [address] [place] [address] Dr. Get Whitten METAMYELOCYTE % Normal [facility] Comment on above: Performed By: #### C MP, HSTROPN, BNP #### [facility] [address] [place] [address] Dr. Get Whitten MONOM# 1.08 103/ul Critically high 0.30-0.80 [facility] Comment on above: Performed By: #### C MP, HSTROPN, BNP #### [facility] [address] [place] [address] Dr. Get Whitten MONOM% 9.0 % Normal 1.7-12.0 [facility] Comment on above: Performed By: #### C MP, HSTROPN, BNP #### [facility] [address] [place] [address] Dr. Get Whitten MPV 10.3 fL Normal 9.5-13.5 [facility] Comment on above: Performed By: #### C MP, HSTROPN, BNP #### [facility] [address] [place] [address] Dr. Get Whitten MYELOCYTE # Normal [facility] Comment on above: Performed By: #### C MP, HSTROPN, BNP #### [facility] [address] [place] [address] Dr. Get Whitten MYELOCYTE % Normal [facility] Comment on above: Performed By: #### C MP, HSTROPN, BNP #### [facility] [address] [place] [address] Dr. Get Whitten NRBC Normal [facility] Comment on above: Performed By: #### C MP, HSTROPN, BNP #### [facility] [address] [address] [address] Get Whitten PLT 111 103/ul Critically low 150-450 [facility] Comment on above: Performed By: #### C MP, HSTROPN, BNP #### [facility] [address] [address] [address] Get Whitten RBC 4.37 106/ul Critically low 4.70-6.10 [facility] Comment on above: Performed By: #### C MP, HSTROPN, BNP #### [facility] [address] [place] [address] Dr. Get Whitten RDW 12.4 % Normal 11.0-15.0 [facility] Comment on above: Performed By: #### C MP, HSTROPN, BNP #### [facility] [address] [place] [address] Dr. Get Whitten SEG # 8.88 103/ul Critically high 1.40-6.50 [facility] Comment on above: Performed By: #### C MP, HSTROPN, BNP #### [facility] [address] [place] [address] Dr. Get Whitten SEG % 74.0 % Normal 43.0-75.0 [facility] Comment on above: Performed By: #### C MP, HSTROPN, BNP #### [facility] [address] [place] [address] Dr. Get Whitten WBC 12.0 103/ul Critically high 4.0-11.0 [facility] Comment on above: Performed By: #### C MP, HSTROPN, BNP #### [facility] [address] [place] [address] Dr. Get Whitten CRPon 03-26-2022 CRP [Mass/Vol] mg/L Normal <=1.0 [facility] Comment on above: Performed By: #### C MP, HSTROPN, BNP #### [facility] [address] [place] [address] Dr. Get Whitten Covid-19 PCR (CVDTB)on 03-16 SARS-CoV-2 (COVID-19) RNA ASHLEE+probe Ql (Unsp spec) Detected Critically abnormal NOT DETECTED [facility] Comment on above: Result Comment: This test is not yet approved or cleared by the [place] FDA. When there are no FDA-approved or cleared tests available, and other criteria are met, FDA can make tests available under an emergency access mechanism called an Emergency Use Authorization (EUA). The EUA for this test is supported by the [place] of Health and Human Service's declaration that [...] used). Performed By: #### C VDTBH #### [facility] [address] [place] [address] Dr. Get Whitten LACTATE/LACTIC ACIDon 2021 Lactate [Moles/Vol] 0.4 mmol/L Normal 0.4-1.9 [facility] Comment on above: Performed By: #### C MP, HSTROPN, BNP #### [facility] [address] [place] [address] Dr. Get Whitten NAon 03-26-2022 Sodium [Moles/Vol] 126 mmol/L Critically low 136-145 Th [facility] Comment on above: Performed By: #### B SOCIAL MEDIA DIRECTOR, T7, CMP, TSH #### [facility] [address] [place] [address] Dr. Get Whitten PROF 14(COMP METB)on 022 Albumin [Mass/Vol] 3.6 g/dL Normal 3.4-5.0 [facility] Comment on above: Performed By: #### C MP, HSTROPN, BNP #### [facility] [address] [place] [address] Dr. Get Whitten Albumin/Globulin [Mass ratio] 1.0 {ratio} Normal [facility] Comment on above: Performed By: #### C MP, HSTROPN, BNP #### [facility] [address] [place] [address] Dr. Get Whitten ALP [Catalytic activity/Vol] 49 U/L Normal 46-116 [facility] Comment on above: Performed By: #### C MP, HSTROPN, BNP #### [facility] [address] [place] [address] Dr. Get Whitten ALT [Catalytic activity/Vol] 80 U/L Critically high 16-63 [facility] Comment on above: Performed By: #### C MP, HSTROPN, BNP #### [facility] [address] [place] [address] Dr. Get Whitten Anion gap [Moles/Vol] 16.2 mmol/L Normal [facility] Comment on above: Performed By: #### C MP, HSTROPN, BNP #### [facility] [address] [place] [address] Dr. Get Whitten AST [Catalytic activity/Vol] 42 U/L Critically high 15-37 [facility] Comment on above: Performed By: #### C MP, HSTROPN, BNP #### [facility] [address] [place] [address] Dr. Get Whitten Bilirubin [Mass/Vol] 0.7 mg/dL Normal 0.2-1.0 [facility] Comment on above: Performed By: #### C MP, HSTROPN, BNP #### [facility] [address] [place] [address] Dr. Get Whitten Calcium [Mass/Vol] 8.4 mg/dL Critically low 8.5-10.1 Th e [facility] Comment on above: Performed By: #### C MP, HSTROPN, BNP #### [facility] [address] [place] [address] Dr. Get Whitten Chloride [Moles/Vol] 91 mmol/L Critically low 98-107 [facility] Comment on above: Performed By: #### C MP, HSTROPN, BNP #### [facility] [address] [address] [address] Get Whitten CO2 [Moles/Vol] 19.8 mmol/L Critically low 21.0-32.0 [facility] Comment on above: Performed By: #### C MP, HSTROPN, BNP #### [facility] [address] [address] [address] Get Whitten Creatinine [Mass/Vol] 1.11 mg/dL Normal 0.70-1.30 [facility] Comment on above: Performed By: #### C MP, HSTROPN, BNP #### [facility] [address] [address] [address] Get Whitten EGFR-AF VINCENTIAN >60 Normal >=60 [facility] Comment on above: Performed By: #### C MP, HSTROPN, BNP #### [facility] [address] [address] [address] Get Whitten EGFR-NON AF VINCENTIAN >60 Normal >=60 [facility] Comment on above: Performed By: #### C MP, HSTROPN, BNP #### [facility] [address] [address] [address] Get Whitten Globulin (S) [Mass/Vol] 3.6 g/dL Normal [facility] Comment on above: Performed By: #### C MP, HSTROPN, BNP #### [facility] [address] [address] [address] Get Whitten Glucose [Mass/Vol] 109 mg/dL Critically high 74-106 [facility] Comment on above: Performed By: #### C MP, HSTROPN, BNP #### [facility] [address] [address] [address] Get Whitten Potassium [Moles/Vol] 4.0 mmol/L Normal 3.5-5.1 [facility] Comment on above: Performed By: #### C MP, HSTROPN, BNP #### [facility] [address] [address] [address] Get Whitten Protein [Mass/Vol] 7.2 g/dL Normal 6.4-8.2 [facility] Comment on above: Performed By: #### C MP HSTROPN, BNP #### [facility] [address] [address] [address] Get Whitten Sodium [Moles/Vol] 123 mmol/L Critically low 136-145 Th e [facility] Comment on above: Performed By: #### C MP HSTROPN, BNP #### [facility] [address] [address] [address] Get Whitten Urea nitrogen [Mass/Vol] 15.0 mg/dL Normal 7.0-18.0 [facility] Comment on above: Performed By: #### C FILOMENA HSTROPN, BNP #### [facility] [address] [place] [address] Dr. Get Whitten Urea nitrogen/Creatinine [Mass ratio] 13.5 mg/mg Normal [facility] Comment on above: Performed By: #### C FILOMENA HSTROPN, BNP #### [facility] [address] [place] [address] Dr. Get Whitten SPUTUM GRAM STAINon 03-26-20 COMMENTS NO ORGANISMS OBSERVED Normal [facility] Comment on above: Performed By: #### C VDTBH #### [facility] [address] [place] [address] Dr. Get Whitten DIPHTHEROIDS Normal [facility] Comment on above: Performed By: #### C VDTBH #### [facility] [address] [address] [address] Get Whitten EPITHELIALS <25 Normal [facility] Comment on above: Performed By: #### C VDTBH #### [facility] [address] [address] [address] Get Whitten FUNGAL ELEMENTS Normal [facility] Comment on above: Performed By: #### C VDTBH #### [facility] [address] [place] [address] Dr. Get Whitten GRAM NEG BACILLI Normal [facility] Comment on above: Performed By: #### C VDTBH #### [facility] [address] [place] [address] Dr. Get Whitten GRAM NEG DIPPLOCOCCI Normal [facility] Comment on above: Performed By: #### C VDTBH #### [facility] [address] [place] [address] Dr. Get Whitten GRAM POS BACILLI Normal [facility] Comment on above: Performed By: #### C VDTBH #### [facility] [address] [place] [address] Dr. Get Whitten GRAM POSITIVE COCCI Normal [facility] Comment on above: Performed By: #### C VDTBH #### [facility] [address] [place] [address] Dr. Get Whitten WBC (Bld) [#/Vol] 10*3/uL Normal [facility] Comment on above: Performed By: #### C VDTBH #### [facility] [address] [place] [address] Dr. Get Whitten TROPONIN, HIGH SENSITIVITYon 03-26-2022 HSTROP 19.8 pg/mL Normal 4.0-76.1 [facility] Comment on above: Result Comment: CUT- OFF POINTS HAVE BEEN ESTABLISHED BASED ON THE FOURTH UNIVERSAL DEFINITIONS OF MYOCARDIAL INFARCTION. THE UPPER REFERENCE LIMIT (URL) OF TROPONIN, DEFINED THE 99TH PERCENTILE OF cTnI DISTRIBUTION IN A REFERENCE POPULATION, HAS BEEN CONFIRMED THE DECISION THRESHOLD FOR [place] DIAGNOSIS. Performed By: #### C MP, HSTROPN, BNP #### [facility] [address] [place] [address] Dr. Get Whitten TSHon 03-26-2022 TSH 51.305 uIU/mL Critically high 0.358-3.740 [facility] Comment on above: Performed By: #### C MP, HSTROPN, BNP #### [facility] [address] [place] [address] Dr. Get Whitten XR CHEST 1 Von 03-26-2022 XR CHEST 1 V EXAM: XR CHEST 1 V HISTORY: COUGH COMPARISON: Chest x-ray 03/23/2022 TECHNIQUE: Single frontal view chest x-ray FINDINGS: No lobar consolidation, large pleural effusions, pneumothorax, or acute bony abnormality. Cardiac size is unremarkable. IMPRESSION: No radiographic evidence for acute chest abnormality. Electronically authenticated by: JANKI STEEL Date: 2022-03-26 04:14 Normal [facility] BNPon 03-23-2022 Natriuretic peptide B (Bld) [Mass/Vol] 385.0 pg/mL Normal <=900.0 [facility] Comment on above: Performed By: #### C MP, HSTROPN, BNP #### [facility] [address] [address] [address] Get Whitten CBC W MANUAL DIFFon 03-23-20 22 ATYPICAL LYMPH # Normal [facility] Comment on above: Performed By: #### B SOCIAL MEDIA DIRECTOR, T7, CMP, TSH #### [facility] [address] [place] [address] Dr. Get Whitten ATYPICAL LYMPH % Normal [facility] Comment on above: Performed By: #### B SOCIAL MEDIA DIRECTOR, T7, CMP, TSH #### [facility] [address] [place] [address] Dr. Get Whitten BAND # 0.2 103/ul Normal 0.0-0.3 [facility] Comment on above: Performed By: #### B SOCIAL MEDIA DIRECTOR, T7, CMP, TSH #### [facility] [address] [place] [address] Dr. Get Whitten BAND % 2 % Normal 0-5 [facility] Comment on above: Performed By: #### B SOCIAL MEDIA DIRECTOR, T7, CMP, TSH #### [facility] [address] [place] [address] Dr. Get Whitten BASOM # 0.00 103/ul Normal 0.00-0.10 [facility] Comment on above: Performed By: #### B SOCIAL MEDIA DIRECTOR, T7, CMP, TSH #### [facility] [address] [place] [address] Dr. Get Whitten BASOM % 0.0 % Critically low 0.2-2.0 [facility] Comment on above: Performed By: #### B SOCIAL MEDIA DIRECTOR, T7, CMP, TSH #### [facility] [address] [place] [address] Dr. Get Whitten BLAST # Normal [facility] Comment on above: Performed By: #### B SOCIAL MEDIA DIRECTOR, T7, CMP, TSH #### [facility] [address] [address] [address] Get Whitten BLAST % Normal [facility] Comment on above: Performed By: #### B SOCIAL MEDIA DIRECTOR, T7, CMP, TSH #### [facility] [address] [address] [address] Get Whitten CORRECTED WBC Normal 4.0-11.0 [facility] Comment on above: Performed By: #### B SOCIAL MEDIA DIRECTOR, T7, CMP, TSH #### [facility] [address] [address] [address] Get Whitten EOS # 0.00 103/ul Normal 0.00-0.70 [facility] Comment on above: Performed By: #### B SOCIAL MEDIA DIRECTOR, T7, CMP, TSH #### [facility] [address] [place] [address] Dr. Get Whitten EOS% 0.0 % Critically low 0.9-7.0 [facility] Comment on above: Performed By: #### B SOCIAL MEDIA DIRECTOR, T7, CMP, TSH #### [facility] [address] [address] [address] Get Whitten HCT 45.6 % Normal 42.0-54.0 [facility] Comment on above: Performed By: #### B SOCIAL MEDIA DIRECTOR, T7, CMP, TSH #### [facility] [address] [address] [address] Get Whitten HGB 16.3 g/dl Normal 14.0-18.0 [facility] Comment on above: Performed By: #### B SOCIAL MEDIA DIRECTOR, T7, CMP, TSH #### [facility] [address] [address] [address] Get Whitten LYMPHM # 0.89 103/ul Critically low 1.20-3.80 [facility] Comment on above: Performed By: #### B SOCIAL MEDIA DIRECTOR, T7, CMP, TSH #### [facility] [address] [address] [address] Get Whitten LYMPHM% 9.0 % Critically low 20.5-60.0 [facility] Comment on above: Performed By: #### B SOCIAL MEDIA DIRECTOR, T7, CMP, TSH #### [facility] [address] [place] [address] Dr. Get Whitten MCH 36.5 pg Critically high 25.9-34.0 [facility] Comment on above: Performed By: #### B SOCIAL MEDIA DIRECTOR, T7, CMP, TSH #### [facility] [address] [place] [address] Dr. Get Whitten MCHC 35.7 g/dl Critically high 29.9-35.[address] [facility] Comment on above: Performed By: #### B SOCIAL MEDIA DIRECTOR, T7, CMP, TSH #### [facility] [address] [place] [address] Dr. Get Whitten MCV 102.0 fL Critically high 80.0-94.0 [facility] Comment on above: Performed By: #### B SOCIAL MEDIA DIRECTOR, T7, CMP, TSH #### [facility] [address] [place] [address] Dr. Get Whitten METAMYELOCYTE # Normal [facility] Comment on above: Performed By: #### B SOCIAL MEDIA DIRECTOR, T7, CMP, TSH #### [facility] [address] [place] [address] Dr. Get Whitten METAMYELOCYTE % Normal [facility] Comment on above: Performed By: #### B SOCIAL MEDIA DIRECTOR, T7, CMP, TSH #### [facility] [address] [place] [address] Dr. Get Whitten MONOM# 0.89 103/ul Critically high 0.30-0.80 [facility] Comment on above: Performed By: #### B SOCIAL MEDIA DIRECTOR, T7, CMP, TSH #### [facility] [address] [place] [address] Dr. Get Whitten MONOM% 9.0 % Normal 1.7-12.0 [facility] Comment on above: Performed By: #### B SOCIAL MEDIA DIRECTOR, T7, CMP, TSH #### [facility] [address] [place] [address] Dr. Get Whitten MPV 8.8 fL Critically low 9.5-13.5 [facility] Comment on above: Performed By: #### B SOCIAL MEDIA DIRECTOR, T7, CMP, TSH #### [facility] [address] [address] [address] Get Whitten MYELOCYTE # Normal [facility] Comment on above: Performed By: #### B SOCIAL MEDIA DIRECTOR, T7, CMP, TSH #### [facility] [address] [address] [address] Get Whitten MYELOCYTE % Normal [facility] Comment on above: Performed By: #### B SOCIAL MEDIA DIRECTOR, T7, CMP, TSH #### [facility] [address] [address] [address] Get Whitten NRBC Normal [facility] Comment on above: Performed By: #### B SOCIAL MEDIA DIRECTOR, T7, CMP, TSH #### [facility] [address] [place] [address] Dr. Get Whitten PLT 156 103/ul Normal 150-450 [facility] Comment on above: Performed By: #### B SOCIAL MEDIA DIRECTOR, T7, CMP, TSH #### [facility] [address] [address] [address] Get Whitten RBC 4.47 106/ul Critically low 4.70-6.[address] [facility] Comment on above: Performed By: #### B SOCIAL MEDIA DIRECTOR, T7, CMP, TSH #### [facility] [address] [place] [address] Dr. Get Whitten RDW 12.4 % Normal 11.0-15.0 [facility] Comment on above: Performed By: #### B SOCIAL MEDIA DIRECTOR, T7, CMP, TSH #### [facility] [address] [place] [address] Dr. Get Whitten SEG # 7.92 103/ul Critically high 1.40-6.50 [facility] Comment on above: Performed By: #### B SOCIAL MEDIA DIRECTOR, T7, CMP, TSH #### [facility] [address] [address] [address] Get Whitten SEG % 80.0 % Critically high 43.0-75.0 [facility] Comment on above: Performed By: #### B SOCIAL MEDIA DIRECTOR, T7, CMP, TSH #### [facility] [address] [place] [address] Dr. Get Whitten WBC 9.9 103/ul Normal 4.0-11.0 [facility] Comment on above: Performed By: #### B SOCIAL MEDIA DIRECTOR, T7, CMP, TSH #### [facility] [address] [place] [address] Dr. Get Whitten PROF 14(COMP METB)on 022 Albumin [Mass/Vol] 3.9 g/dL Normal 3.4-5.0 [facility] Comment on above: Performed By: #### C MP, HSTROPN, BNP #### [facility] [address] [place] [address] Dr. Get Whitten Albumin/Globulin [Mass ratio] 1.1 {ratio} Normal [facility] Comment on above: Performed By: #### C MP, HSTROPN, BNP #### [facility] [address] [place] [address] Dr. Get Whitten ALP [Catalytic activity/Vol] 55 U/L Normal 46-116 [facility] Comment on above: Performed By: #### C MP, HSTROPN, BNP #### [facility] [address] [place] [address] Dr. Get Whitten ALT [Catalytic activity/Vol] 67 U/L Critically high 16-63 [facility] Comment on above: Performed By: #### C MP, HSTROPN, BNP #### [facility] [address] [place] [address] Dr. Get Whitten Anion gap [Moles/Vol] 13.2 mmol/L Normal [facility] Comment on above: Performed By: #### C MP, HSTROPN, BNP #### [facility] [address] [place] [address] Dr. Get Whitten AST [Catalytic activity/Vol] 20 U/L Normal 15-37 [facility] Comment on above: Performed By: #### C MP, HSTROPN, BNP #### [facility] [address] [place] [address] Dr. Get Whitten Bilirubin [Mass/Vol] 0.4 mg/dL Normal 0.2-1.0 [facility] Comment on above: Performed By: #### C MP, HSTROPN, BNP #### [facility] [address] [address] [address] Get Whitten Calcium [Mass/Vol] 8.5 mg/dL Normal 8.5-10.1 [facility] Comment on above: Performed By: #### C MP, HSTROPN, BNP #### [facility] [address] [address] [address] Get Whitten Chloride [Moles/Vol] 93 mmol/L Critically low 98-107 [facility] Comment on above: Performed By: #### C MP, HSTROPN, BNP #### [facility] [address] [address] [address] Get Whitten CO2 [Moles/Vol] 22.6 mmol/L Normal 21.0-32.0 [facility] Comment on above: Performed By: #### C MP, HSTROPN, BNP #### [facility] [address] [address] [address] Get Whitten Creatinine [Mass/Vol] 1.26 mg/dL Normal 0.70-1.30 [facility] Comment on above: Performed By: #### C MP, HSTROPN, BNP #### [facility] [address] [address] [address] Get Whitten EGFR-AF VINCENTIAN >60 Normal >=60 [facility] Comment on above: Performed By: #### C MP, HSTROPN, BNP #### [facility] [address] [address] [address] Get Whitten EGFR-NON AF VINCENTIAN 59 mL/min/1.73m2 Critically low >=60 [facility] Comment on above: Performed By: #### C MP, HSTROPN, BNP #### [facility] [address] [address] [address] Get Whitten Globulin (S) [Mass/Vol] 3.5 g/dL Normal [facility] Comment on above: Performed By: #### C MP, HSTROPN, BNP #### [facility] [address] [address] [address] Get Whitten Glucose [Mass/Vol] 144 mg/dL Critically high 74-106 [facility] Comment on above: Performed By: #### C MP, HSTROPN, BNP #### [facility] [address] [place] [address] Dr. Get Whitten Potassium [Moles/Vol] 3.9 mmol/L Normal 3.5-5.1 [facility] Comment on above: Performed By: #### C MP, HSTROPN, BNP #### [facility] [address] [place] [address] Dr. Get Whitten Protein [Mass/Vol] 7.4 g/dL Normal 6.4-8.2 [facility] Comment on above: Performed By: #### C MP, HSTROPN, BNP #### [facility] [address] [place] [address] Dr. Get Whitten Sodium [Moles/Vol] 125 mmol/L Critically low 136-145 [facility] Comment on above: Performed By: #### C MP, HSTROPN, BNP #### [facility] [address] [place] [address] Dr. Get Whitten Urea nitrogen [Mass/Vol] 14.0 mg/dL Normal 7.0-18.0 [facility] Comment on above: Performed By: #### C MP, HSTROPN, BNP #### [facility] [address] [place] [address] Dr. Get Whitten Urea nitrogen/Creatinine [Mass ratio] 11.1 mg/mg Normal [facility] Comment on above: Performed By: #### C MP, HSTROPN, BNP #### [facility] [address] [place] [address] Dr. Get Whitten TROPONIN, HIGH SENSITIVITYon 03-23-2022 HSTROP 6.6 pg/mL Normal 4.0-76.1 [facility] Comment on above: Result Comment: CUT- OFF POINTS HAVE BEEN ESTABLISHED BASED ON THE FOURTH UNIVERSAL DEFINITIONS OF MYOCARDIAL INFARCTION. THE UPPER REFERENCE LIMIT (URL) OF TROPONIN, DEFINED THE 99TH PERCENTILE OF cTnI DISTRIBUTION IN A REFERENCE POPULATION, HAS BEEN CONFIRMED THE DECISION THRESHOLD FOR [place] DIAGNOSIS. Performed By: #### C MP, HSTROPN, BNP #### [facility] [address] [place], [place] [address] Dr. Get Whitten XR CHEST 1 Von [...] SHEN SOSA Date: 2022-03-23 15:02 Normal [facility] Covid-19 PCR ([facility])on SARS-CoV-2 (COVID-19) RNA ASHLEE+probe Ql (Unsp spec) Detected Critically abnormal NOT DETECTED [facility] Comment on above: Result Comment: This test is not yet approved or cleared by the [place] FDA. When there are no FDA-approved or cleared tests available, and other criteria are met, FDA can make tests available under an emergency access mechanism called an Emergency Use Authorization (EUA). The EUA for this test is supported by the Physician General Internal Medicine of Health and Human Service's declaration that [...] By: #### C MP, HSTROPN, BNP #### [facility] [address] [place] [address] Dr. Get Whitten CBC AUTO DIFFon 01-24-2022 BASO # 0.1 103/ul Normal 0.0-0.1 [facility] Comment on above: Performed By: #### B SOCIAL MEDIA DIRECTOR, T7, CMP, TSH #### [facility] [address] [place] [address] Dr. Get Whitten Basophils/100 WBC (Bld) 0.6 % Normal 0.2-2.0 [facility] Comment on above: Performed By: #### B SOCIAL MEDIA DIRECTOR, T7, CMP, TSH #### [facility] [address] [place] [address] Dr. Get Whitten EO # 0.0 103/ul Normal 0.0-0.7 [facility] Comment on above: Performed By: #### B SOCIAL MEDIA DIRECTOR, T7, CMP, TSH #### [facility] [address] [place] [address] Dr. Get Whitten Eosinophils/100 WBC (Bld) 0.1 % Critically low 0.9-7.0 [facility] Comment on above: Performed By: #### B SOCIAL MEDIA DIRECTOR, T7, CMP, TSH #### [facility] [address] [place] [address] Dr. Get Whitten Erythrocyte distribution width (RBC) [Ratio] 13.1 % Normal 11.0-15.0 [facility] Comment on above: Performed By: #### B SOCIAL MEDIA DIRECTOR, T7, CMP, TSH #### [facility] [address] [place] [address] Dr. Get Whitten Hematocrit (Bld) [Volume fraction] 41.0 % Critically low 42.0-54.0 [facility] Comment on above: Performed By: #### B SOCIAL MEDIA DIRECTOR, T7, CMP, TSH #### [facility] [address] [place] [address] Dr. Get Whitten Hemoglobin (Bld) [Mass/Vol] 14.3 g/dL Normal 14.0-18.0 [facility] Comment on above: Performed By: #### B SOCIAL MEDIA DIRECTOR, T7, CMP, TSH #### [facility] [address] [place] [address] Dr. Get Whitten IG # 0.25 10e3/ul Critically high 0.00-0.03 [facility] Comment on above: Performed By: #### B SOCIAL MEDIA DIRECTOR, T7, CMP, TSH #### [facility] [address] [place] [address] Dr. Get Whitten IG % 2.3 % Critically high 0.0-0.[address] [facility] Comment on above: Performed By: #### B SOCIAL MEDIA DIRECTOR, T7, CMP, TSH #### [facility] [address] [place] [address] Dr. Get Whitten LYMPH # 2.4 103/ul Normal 1.2-3.8 [facility] Comment on above: Performed By: #### B SOCIAL MEDIA DIRECTOR, T7, CMP, TSH #### [facility] [address] [place] [address] Dr. Get Whitten Lymphocytes/100 WBC (Bld) 21.7 % Normal 20.5-60.0 [facility] Comment on above: Performed By: #### B SOCIAL MEDIA DIRECTOR, T7, CMP, TSH #### [facility] [address] [place] [address] Dr. Get Whitten MANUAL DIFF REQ NO Normal [facility] Comment on above: Performed By: #### B SOCIAL MEDIA DIRECTOR, T7, CMP, TSH #### [facility] [address] [place] [address] Dr. Get Whitten MCH (RBC) [Entitic mass] 37.0 pg Critically high 25.9-34.0 [facility] Comment on above: Performed By: #### B SOCIAL MEDIA DIRECTOR, T7, CMP, TSH #### [facility] [address] [place] [address] Dr. Get Whitten MCHC (RBC) [Mass/Vol] 34.9 g/dL Normal 29.9-35.2 [facility] Comment on above: Performed By: #### B SOCIAL MEDIA DIRECTOR, T7, CMP, TSH #### [facility] [address] [place] [address] Dr. Get Whitten MCV (RBC) [Entitic vol] 105.9 fL Critically high 80.0-94.0 [facility] Comment on above: Result Comment: 1+ m acrocytosis Performed By: #### B SOCIAL MEDIA DIRECTOR, T7, CMP, TSH #### [facility] [address] [place] [address] Dr. Get Whitten MONO # 0.8 103/ul Normal 0.3-0.8 [facility] Comment on above: Performed By: #### B SOCIAL MEDIA DIRECTOR, T7, CMP, TSH #### [facility] [address] [place] [address] Dr. Get Whitten Monocytes/100 WBC (Bld) 7.0 % Normal 1.7-12.0 [facility] Comment on above: Performed By: #### B SOCIAL MEDIA DIRECTOR, T7, CMP, TSH #### [facility] [address] [place] [address] Dr. Get Whitten NEUT # 7.5 103/ul Critically high 1.4-6.[address] [facility] Comment on above: Performed By: #### B SOCIAL MEDIA DIRECTOR, T7, CMP, TSH #### [facility] [address] [place] [address] Dr. Get Whitten Neutrophils/100 WBC (Bld) 68.3 % Normal 43.0-75.0 [facility] Comment on above: Performed By: #### B SOCIAL MEDIA DIRECTOR, T7, CMP, TSH #### [facility] [address] [place] [address] Dr. Get Whitten Platelet mean volume (Bld) [Entitic vol] 8.6 fL Critically low 9.5-13.5 [facility] Comment on above: Performed By: #### B SOCIAL MEDIA DIRECTOR, T7, CMP, TSH #### [facility] [address] [place] [address] Dr. Get Whitten PLT 235 103/ul Normal 150-450 [facility] Comment on above: Performed By: #### B SOCIAL MEDIA DIRECTOR, T7, CMP, TSH #### [facility] [address] [place] [address] Dr. Get Whitten RBC 3.87 106/ul Critically low 4.70-6.[address] [facility] Comment on above: Performed By: #### B SOCIAL MEDIA DIRECTOR, T7, CMP, TSH #### [facility] [address] [place] [address] Dr. Get Whitten WBC 11.0 103/ul Normal 4.0-11.0 [facility] Comment on above: Performed By: #### B SOCIAL MEDIA DIRECTOR, T7, CMP, TSH #### [facility] [address] [place] [address] Dr. Get Whitten POINT OF CARE GLUCOSEon 01-13 Glucose [Mass/Vol] 116 mg/dL Critically high 74-106 [facility] Comment on above: Performed By: #### C MP #### [facility] [address] [place] [address] Dr. Get Whitten PROF CHEM 8 (BAS METB)on Anion gap [Moles/Vol] 14.2 mmol/L Normal [facility] Comment on above: Performed By: #### B SOCIAL MEDIA DIRECTOR, T7, CMP, TSH #### [facility] [address] [place] [address] Dr. Get Whitten Calcium [Mass/Vol] 8.7 mg/dL Normal 8.5-10.1 [facility] Comment on above: Performed By: #### B SOCIAL MEDIA DIRECTOR, T7, CMP, TSH #### [facility] [address] [place] [address] Dr. Get Whitten Chloride [Moles/Vol] 99 mmol/L Normal 98-107 [facility] Comment on above: Performed By: #### B SOCIAL MEDIA DIRECTOR, T7, CMP, TSH #### [facility] [address] [place] [address] Dr. Get Whitten CO2 [Moles/Vol] 25.1 mmol/L Normal 21.0-32.0 [facility] Comment on above: Performed By: #### B SOCIAL MEDIA DIRECTOR, T7, CMP, TSH #### [facility] [address] [place] [address] Dr. Get Whitten Creatinine [Mass/Vol] 1.24 mg/dL Normal 0.70-1.30 [facility] Comment on above: Performed By: #### B SOCIAL MEDIA DIRECTOR, T7, CMP, TSH #### [facility] [address] [place] [address] Dr. Get Whitten EGFR-AF VINCENTIAN >60 Normal >=60 [facility] Comment on above: Performed By: #### B SOCIAL MEDIA DIRECTOR, T7, CMP, TSH #### [facility] [address] [address] [address] Get Whitten EGFR-NON AF VINCENTIAN =60 Normal >=60 [facility] Comment on above: Performed By: #### B SOCIAL MEDIA DIRECTOR, T7, CMP, TSH #### [facility] [address] [address] [address] Get Whitten Glucose [Mass/Vol] 122 mg/dL Critically high 74-106 [facility] Comment on above: Performed By: #### B SOCIAL MEDIA DIRECTOR, T7, CMP, TSH #### [facility] [address] [address] [address] Get Whitten Potassium [Moles/Vol] 4.3 mmol/L Normal 3.5-5.1 [facility] Comment on above: Performed By: #### B SOCIAL MEDIA DIRECTOR, T7, CMP, TSH #### [facility] [address] [address] [address] Get Whitten Sodium [Moles/Vol] 134 mmol/L Critically low 136-145 [facility] Comment on above: Performed By: #### B SOCIAL MEDIA DIRECTOR, T7, CMP, TSH #### [facility] [address] [address] [address] Get Whitten Urea nitrogen [Mass/Vol] 7.0 mg/dL Normal 7.0-18.0 [facility] Comment on above: Performed By: #### B SOCIAL MEDIA DIRECTOR, T7, CMP, TSH #### [facility] [address] [address] [address] Get Whitten Urea nitrogen/Creatinine [Mass ratio] 5.6 mg/mg Normal [facility] Comment on above: Performed By: #### B SOCIAL MEDIA DIRECTOR, T7, CMP, TSH #### [facility] [address] [address] [address] Get Whitten TROPONIN, HIGH SENSITIVITYon 01-24-2022 HSTROP 5.1 pg/mL Normal 4.0-76.1 [facility] Comment on above: Result Comment: CUT- OFF POINTS HAVE BEEN ESTABLISHED BASED ON THE FOURTH UNIVERSAL DEFINITIONS OF MYOCARDIAL INFARCTION. THE UPPER REFERENCE LIMIT (URL) OF TROPONIN, DEFINED THE 99TH PERCENTILE OF cTnI DISTRIBUTION IN A REFERENCE POPULATION, HAS BEEN CONFIRMED THE DECISION THRESHOLD FOR [place] DIAGNOSIS. Performed By: #### B SOCIAL MEDIA DIRECTOR, T7, CMP, TSH #### [facility] [address] [place] [address] Dr. Get Whitten XR CHEST 1 Von [...] CESAR PARKER Date: 2022-01-24 11:31 Normal [facility] BNPon 01-09-2022 Natriuretic peptide B (Bld) [Mass/Vol] 83.0 pg/mL Normal <=900.0 [facility] Comment on above: Performed By: #### C MP, HSTROPN, BNP #### [facility] [address] [place] [address] Dr. Get Whitten CBC AUTO DIFFon 01-09-2022 BASO # 0.0 103/ul Normal 0.0-0.1 [facility] Comment on above: Performed By: #### C MP #### [facility] [address] [place] [address] Dr. Get Whitten Basophils/100 WBC (Bld) 0.4 % Normal 0.2-2.0 [facility] Comment on above: Performed By: #### C MP #### [facility] [address] [place] [address] Dr. Get Whitten EO # 0.0 103/ul Normal 0.0-0.7 [facility] Comment on above: Performed By: #### C MP #### [facility] [address] [place] [address] Dr. Get Whitten Eosinophils/100 WBC (Bld) 0.2 % Critically low 0.9-7.0 [facility] Comment on above: Performed By: #### C MP #### [facility] [address] [place] [address] Dr. Get Whitten Erythrocyte distribution width (RBC) [Ratio] 13.1 % Normal 11.0-15.0 [facility] Comment on above: Performed By: #### C MP #### [facility] [address] [place] [address] Dr. Get Whitten Hematocrit (Bld) [Volume fraction] 41.5 % Critically low 42.0-54.0 [facility] Comment on above: Performed By: #### C MP #### [facility] [address] [place] [address] Dr. Get Whitten Hemoglobin (Bld) [Mass/Vol] 14.4 g/dL Normal 14.0-18.0 [facility] Comment on above: Performed By: #### C MP #### [facility] [address] [place] [address] Dr. Get Whitten IG # 0.12 10e3/ul Critically high 0.00-0.03 [facility] Comment on above: Performed By: #### C MP #### [facility] [address] [place] [address] Dr. Get Whitten IG % 1.1 % Critically high 0.0-0.5 [facility] Comment on above: Performed By: #### C MP #### [facility] [address] [place] [address] Dr. Get Whitten LYMPH # 2.3 103/ul Normal 1.2-3.8 [facility] Comment on above: Performed By: #### C MP #### [facility] [address] [place] [address] Dr. Get Whitten Lymphocytes/100 WBC (Bld) 20.9 % Normal 20.5-60.0 [facility] Comment on above: Performed By: #### C MP #### [facility] [address] [place] [address] Dr. Get Whitten MANUAL DIFF REQ NO Normal [facility] Comment on above: Performed By: #### C MP #### [facility] [address] [address] [address] Get Whitten MCH (RBC) [Entitic mass] 37.1 pg Critically high 25.9-34.0 [facility] Comment on above: Performed By: #### C MP #### [facility] [address] [place] [address] Dr. Get Whitten MCHC (RBC) [Mass/Vol] 34.7 g/dL Normal 29.9-35.2 [facility] Comment on above: Performed By: #### C MP #### [facility] [address] [place] [address] Dr. Get Whitten MCV (RBC) [Entitic vol] 107.0 fL Critically high 80.0-94.0 [facility] Comment on above: Result Comment: 1+ m acrocytosis Performed By: #### C MP #### [facility] [address] [place] [address] Dr. Get Whitten MONO # 0.7 103/ul Normal 0.3-0.8 [facility] Comment on above: Performed By: #### C MP #### [facility] [address] [place] [address] Dr. Get Whitten Monocytes/100 WBC (Bld) 6.3 % Normal 1.7-12.0 [facility] Comment on above: Performed By: #### C MP #### [facility] [address] [place] [address] Dr. Get Whitten NEUT # 7.7 103/ul Critically high 1.4-6.[address] [facility] Comment on above: Performed By: #### C MP #### [facility] [address] [place] [address] Dr. Get Whitten Neutrophils/100 WBC (Bld) 71.1 % Normal 43.0-75.0 [facility] Comment on above: Performed By: #### C MP #### [facility] [address] [place] [address] Dr. Get Whitten Platelet mean volume (Bld) [Entitic vol] 8.6 fL Critically low 9.5-13.5 [facility] Comment on above: Performed By: #### C MP #### [facility] [address] [place] [address] Dr. Get Whitten PLT 238 103/ul Normal 150-450 [facility] Comment on above: Performed By: #### C MP #### [facility] [address] [address] [address] Get Whitten RBC 3.88 106/ul Critically low 4.70-6.10 [facility] Comment on above: Performed By: #### C MP #### [facility] [address] [address] [address] Get Whitten WBC 10.8 103/ul Normal 4.0-11.0 [facility] Comment on above: Performed By: #### C MP #### [facility] [address] [place] [address] Dr. Get Whitten Covid-19 PCR ([facility])on 12-15 SARS-CoV-2 (COVID-19) RNA ASHLEE+probe Ql (Unsp spec) Not detected Normal NOT DETECTED [facility] Comment on above: Result Comment: When [...] for this test is supported by the [place] of Health and Human Service's declaration that [...] By: #### C MP, HSTROPN, BNP #### [facility] [address] [place] [address] Dr. Get Whitten PROF 14(COMP METB)on 022 Albumin [Mass/Vol] 4.0 g/dL Normal 3.4-5.0 [facility] Comment on above: Performed By: #### C MP, HSTROPN, BNP #### [facility] [facility] [address] [place] [address] Dr. Get Whitten Albumin/Globulin [Mass ratio] 1.0 {ratio} Normal [facility] Comment on above: Performed By: #### C MP, HSTROPN, BNP #### [facility] [address] [place] [address] Dr. Get Whitten ALP [Catalytic activity/Vol] 90 U/L Normal 46-116 [facility] Comment on above: Performed By: #### C MP, HSTROPN, BNP #### [facility] [address] [place] [address] Dr. Get Whitten ALT [Catalytic activity/Vol] 27 U/L Normal 16-63 [facility] Comment on above: Performed By: #### C MP, HSTROPN, BNP #### [facility] [address] [place] [address] Dr. Get Whitten Anion gap [Moles/Vol] 12.6 mmol/L Normal [facility] Comment on above: Performed By: #### C MP, HSTROPN, BNP #### [facility] [address] [place] [address] Dr. Get Whitten AST [Catalytic activity/Vol] 16 U/L Normal 15-37 [facility] Comment on above: Performed By: #### C MP, HSTROPN, BNP #### [facility] [address] [place] [address] Dr. Get Whitten Bilirubin [Mass/Vol] 0.4 mg/dL Normal 0.2-1.0 [facility] Comment on above: Performed By: #### C MP, HSTROPN, BNP #### [facility] [address] [place] [address] Dr. Get Whitten Calcium [Mass/Vol] 8.4 mg/dL Critically low 8.5-10.1 Th e [facility] Comment on above: Performed By: #### C MP, HSTROPN, BNP #### [facility] [address] [place] [address] Dr. Get Whitten Chloride [Moles/Vol] 100 mmol/L Normal 98-107 [facility] Comment on above: Performed By: #### C MP, HSTROPN, BNP #### [facility] [address] [place] [address] Dr. Get Whitten CO2 [Moles/Vol] 25.1 mmol/L Normal 21.0-32.0 [facility] Comment on above: Performed By: #### C MP, HSTROPN, BNP #### [facility] [address] [place] [address] Dr. Get Whitten Creatinine [Mass/Vol] 1.20 mg/dL Normal 0.70-1.30 [facility] Comment on above: Performed By: #### C MP, HSTROPN, BNP #### [facility] [address] [place] [address] Dr. Get Whitten EGFR-AF VINCENTIAN >60 Normal >=60 [facility] Comment on above: Performed By: #### C MP, HSTROPN, BNP #### [facility] [address] [place] [address] Dr. Get Whitten EGFR-NON AF VINCENTIAN >60 Normal >=60 [facility] Comment on above: Performed By: #### C MP, HSTROPN, BNP #### [facility] [address] [place] [address] Dr. Get Whitten Globulin (S) [Mass/Vol] 4.0 g/dL Normal [facility] Comment on above: Performed By: #### C MP, HSTROPN, BNP #### [facility] [address] [place] [address] Dr. Get Whitten Glucose [Mass/Vol] 110 mg/dL Critically high 74-106 T [facility] Comment on above: Performed By: #### C MP, HSTROPN, BNP #### [facility] [address] [place] [address] Dr. Get Whitten Potassium [Moles/Vol] 4.7 mmol/L Normal 3.5-5.1 [facility] Comment on above: Performed By: #### C MP, HSTROPN, BNP #### [facility] [address] [place] [address] Dr. Get Whitten Protein [Mass/Vol] 8.0 g/dL Normal 6.4-8.2 [facility] Comment on above: Performed By: #### C MP, HSTROPN, BNP #### [facility] [address] [place] [address] Dr. Get Whitten Sodium [Moles/Vol] 133 mmol/L Critically low 136-145 Th [facility] Comment on above: Performed By: #### C MP, HSTROPN, BNP #### [facility] [address] [place] [address] Dr. Get Whitten Urea nitrogen [Mass/Vol] 7.0 mg/dL Normal 7.0-18.0 [facility] Comment on above: Performed By: #### C MP, HSTROPN, BNP #### [facility] [address] [place] [address] Dr. Get Whitten Urea nitrogen/Creatinine [Mass ratio] 5.8 mg/mg Normal [facility] Comment on above: Performed By: #### C MP, HSTROPN, BNP #### [facility] [address] [place] [address] Dr. Get Whitten PROTIMEon 01-09-2022 INR Coag (PPP) [Relative time] {INR} Normal [facility] Comment on above: Performed By: #### C VDTBH #### [facility] [address] [place] [address] Dr. Get Whitten INR GUIDELINES SEE BELOW Normal [facility] Comment on above: Result Comment: JORGE RED INR: 2.0 - 3.0 CONDITIONS NOT LISTED BELOW 2.5 - 3.5 FOR PROSTHETIC HEART VALVE REPLACEMENT 2.5 - 3.5 RECURRENT THROMBOSIS Performed By: #### C VDTBH #### [facility] [address] [address] [address] Get Whitten PT Coag (PPP) [Time] 9.8 s Normal 9.0-11.6 [facility] Comment on above: Performed By: #### C VDTBH #### [facility] [address] [address] [address] Get Whitten PTTon 01-09-2022 aPTT Coag (Bld) [Time] 28.5 s Normal 22.3-36.2 [facility] Comment on above: Performed By: #### C MP #### [facility] [address] [address] [address] Get Whitten TROPONIN, HIGH SENSITIVITYon 01-09-2022 HSTROP 4.1 pg/mL Normal 4.0-76.1 [facility] Comment on above: Result Comment: CUT- OFF POINTS HAVE BEEN ESTABLISHED BASED ON THE FOURTH UNIVERSAL DEFINITIONS OF MYOCARDIAL INFARCTION. THE UPPER REFERENCE LIMIT (URL) OF TROPONIN, DEFINED THE 99TH PERCENTILE OF cTnI DISTRIBUTION IN A REFERENCE POPULATION, HAS BEEN CONFIRMED THE DECISION THRESHOLD FOR [place] DIAGNOSIS. Performed By: #### C MP, HSTROPN, BNP #### [facility] [address] [place] [address] Dr. Get Whitten XR CHEST 1 Von [...] JULIO CESAR BUTCHER Date: 2022-01-09 18:21 Normal [facility] Coding Summary.on 12-18-2018 Coding Summary. 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, left eye SECONDARY: PYMT PROC APC STAT DESCRIPTION DOCTOR NAME DATE 13781 5481 T Discission of secondary Darnell Rick [...] Woodward Date Saved: 12/18/2018 10:51 am Normal [facility] Encounters Encounter Date Encounter Type Care Provider Facility Start: 07-17-2023 End: 07-17-2023 ambulatory [facility] Start: 05-28-2023 Evaluation and management of inpatient [facility] Start: [facility]28[facility]23 [facility]: 05-28-[facility]23 End: 05-28-2023 Evaluation and management of inpatient [facility] Start: 05-18-2023 End: 05-18-2023 ambulatory [facility] Start: 04-24-2023 End: 04-25-2023 Evaluation and management of inpatient LIDIA PASCUAL [facility] Start: 04-21-2023 Evaluation and management of inpatient KVNG RAYMUNDO [facility] Start: 04-20-2023 End: 04-24-2023 Evaluation and management of inpatient ION SIMS [facility] Start: 04-20-2023 Emergency department patient visit [facility] Start: 04-20-2023 End: 04-20-2023 Emergency department patient visit [facility] Start: 01-08-2023 End: 01-09-2023 ambulatory Hernandez Wylie MD Facility:[facility] Start: 12-25-2022 End: 12-26-2022 ambulatory Hernandez yWlie MD Facility:[facility] Start: 11-27-2022 End: 11-28-[address] PEE GUADALUPE . Facility:[facility] Start: 11-24-2022 End: 12-13-[address] PEE GUADALUPE . Facility:[facility] Start: 10-27-2022 End: 10-27-[address] LIZZIE ALEGRE . Facility:[facility] Start: 10-23-2022 End: 10-24-[address] PEE GUADALUPE . Facility:[facility] Start: 08-03-[address] PEE GUADALUPE . Facili ty:[facility] [...] Category Payer Private Health Insurance 1965 Unknown [id number] 2.16.84 [id number] 1965 Unknown [id number] .16.84 0.1.032491.3.579.2.593 1965 Unknown [id number] 2.16.84 0.1.515043.3.579.2.593 1965 Unknown [id number] 2.16.84 0.1.360973.3.579.2.593 1965 Unknown [id number] 2.16.84 0.1.516792.3.579.2.593 1965 Unknown [id number] 2.16.84 0.1.815770.3.579.2.593 1965 Unknown [id number] 2.16.84 0.1.362496.3.579.2.593 1965 Unknown [id number] 2.16.84 0.1.279973.3.579.2.593 1965 Unknown [id number] 2.16.84 0.1.117399.3.579.2.593 1965 Unknown [id number] 2.16.84 0.1.947417.3.579.2.593 1965 Unknown [id number] 2.16.84 0.1.775880.3.579.2.593 1965 Unknown [id number] 2.16.84 0.1.891132.3.579.2.593 1965 Unknown [id number] 2.16.84 0.1.563821.3.579.2.593 1965 Unknown [id number] 2.16.84 0.1.310940.3.579.2.593 1965 Unknown [id number] 2.16.84 0.1.626664.3.579.2.593 1965 Unknown [id number] 2.16. 840.1.842951.3.579.2.196 1965 Unknown [id number] 2.16. 840.1.217598.3.579.2.196 1959 Medicare [id number] 1959 Private Health Insurance [id number] 1959 Self-pay [id number] Clinical Notes 10-24-2022 to 07-17-2023 Note Date & Type Note Facility 07-17-2023 Note Patient here for [facility]. C/o B/L LE edema, R>L. Says it's [...] All other systems reviewed and are negative. [facility] 07-17-2023 Note [place] Electrophysiology Consult Note Reason for visit: hospital follow up, syncope 07/17/22: Here for hospital follow up Was admited again for syncope at [facility] 05/27 Had stress test which was negative he does get some chest pain at times when his syncopal episodes do occur and this could be related to vasovagal response as patient states he does feel like he sometimes bears down in response to the pain 05/18/23 HPI: Rehan Poole is a 58 y.o. year old with past medical history of hypertension, migraine headaches, seizure, neuropathy, history of PFO He was just seen at [facility] for syncope / CP, he [...] with exertion and improves with rest PMH: No past medical history on file. PSH: No past surgical history on file. SH: Social Determinants of Health Tobacco Use: Medium Risk (05/18/2023) Patient History Smoking Tobacco Use: Former Smokeless Tobacco Use: Former Passive Exposure: Not on file Alcohol Use: Not on file Financial Resource Strain: Medium Risk (05/27/2023) Overall Financial Resource Strain (CARDIA) Difficulty of Paying Living Expenses: Somewhat hard Food Insecurity: Unknown (05/27/2023) Hunger Vital Sign Worried About Running Out of Food in the Last Year: Never true Ran Out of Food in the Last Year: Not on file Transportation Needs: Unknown (05/27/2023) PRAPARE - Transportation Lack of Transportation (Medical): No Lack of Transportation (Non-Medical): Not on file Physical Activity: Not on file Stress: Not on file Social Connections: Not on file Intimate Partner Violence: Unknown (05/27/2023) Humiliation, Afraid, Rape, and Kick questionnaire Fear of Current or Ex-Partner: No Emotionally Abused: Not on file Physically Abused: Not on file Sexually Abused: Not on file Depression: Not on file Housing Stability: Unknown (05/27/2023) Housing Stability Vital Sign Unable to Pay for Housing in the Last Year: Not on file Number of Places Lived in the Last Year: Not on file Unstable Housing in the Last Year: No Allergies: Allergies Allergen Reactions [place] Anaphylaxis Penicillins Angioedema Weight: 101kg Visit Vitals BP 118/82 (BP Location: Right arm, Patient Position: Sitting) Pulse 68 Ht 1.829 m (6') Wt 101 kg (222 lb) SpO2 98% BMI 30.11 kg/m??? Smoking Status Former BSA 2.27 m??? Meds: Current Outpatient Medications on File Prior to Visit Medication Sig Dispense Refill albuterol 90 mcg/actuation inhaler Inhale 2 puffs every 6 (six) hours if needed for wheezing. amitriptyline (Elavil) 50 mg tablet Take 50 mg by mouth in the morning. aspirin 81 mg EC tablet Take 162 mg by mouth in the morning. atorvastatin (Lipitor) 10 mg tablet Take 1 tablet (10 mg) by mouth at bedtime. 90 tablet 3 dutasteride (Avodart) 0.5 mg capsule Take 0.5 mg by mouth in the morning. qxzyfwuetbp-pjdoybvkc-jwwdktfq (Trelegy Ellipta) 100-62.5-25 mcg blister with device Inhale 100 mcg in the morning. folic acid (Folvite) 1 mg tablet 1 (one) time each day at the same time. levETIRAcetam (Keppra) 750 mg tablet Take 750 mg by mouth in the morning and at bedtime. levothyroxine (Synthroid, Levoxyl) 200 mcg tablet Take 1 tablet (200 mcg) by mouth before breakfast for 95 doses. 90 tablet 0 mometasone-formoterol (Dulera 200) 200-5 mcg/actuation inhaler Inhale 2 puffs twice a day. montelukast (Singulair) 10 mg tablet Take 10 mg by mouth in the morning. nitroglycerin (Nitrostat) 0.[address] 1 tablet (0.4 mg) under the tongue every 5 (five) minutes if needed for chest pain. May repeat dose every 5 minutes for up to 3 doses total. 100 tablet 11 oxyCODONE-acetaminophen (Percocet) 5-325 mg tablet take 1 to 2 tablets by mouth every 4 hours if needed tiotropium (Spiriva) [address] 1 capsule into inhaler and inhale in the morning. tiZANidine (Zanaflex) 4 mg tablet Take 4 mg by mouth at bedtime. topiramate (Topamax) 100 mg tablet Take 100 mg by mouth in the morning and at bedtime. 100mg in am 200mg in pm traZODone (Desyrel) 100 mg tablet Take 100 mg by mouth at bedtime. isosorbide mononitrate ER (Imdur) 30 mg 24 hr tablet Take by mouth in the morning. lisinopril 20 mg tablet Take 20 mg by mouth in the morning. methocarbamol (Robaxin) 500 mg tablet Take 1 tablet (500 mg) by mouth at bedtime for 10 days. 10 tablet 0 metoprolol tartrate (Lopressor) 25 mg tablet Take 0.5 tablets (12.5 mg) by mouth (more content not included)... [facility] 05-28-2023 Note Hospital Medicine Discharge Summary Final Discharge Diagnosis: Syncope Admission Diagnosis: NSTEMI (non-ST elevated myocardial infarction) (CMS/HCC) [I21.4] Hospital course: 58 y.o. male who came from home with syncope. Patient with a medical history of hypertension, migraine headache, seizure, neuropathy, previous episodes of syncopal attack related to cardiac reason. Came in as a transfer for possible new syncope with chest pain resolved with nitroglycerin sublingual and outside facility ER. Ordered stat CBC, CMP, Mag, phosph, EKG and telemetry. Admiting [facility] pt to the stepdown unit and consult [facility] cardiology team. We will follow-up on the [...] Keppra. # Hypothyroidism, on levothyroxine. Dear Dr. Anayeli MD, Rehan is advised to follow up [...] 100-62.5-25 mcg blister with device Generic drug: wrcbdzebccl-pbqcucpfe-owlamddw STOP taking these medications hydrocortisone 10 mg [...] family and documentation was 45 minutes. Signed Kodak Hammonds MD Hospital Medicine 05/28/2023 2:37 PM [facility] 05-28-2023 Note 05/28/23 1009 Admission Assessment [...] Discharge? Yes Does the patient have a case management coordinator assigned to them through their insurance? Yes [...] link and activate MyChart? MyChart already active [facility] 05-28-2023 Note . Hospital Medicine History and Physical 05/27/2023 11:38 PM THE HOSPITALIST TEAM PREFERS TO USE GOOM CHAT FOR COMMUNICATION 7AM-7PM. IF I DO NOT RESPOND WITHIN 15 MINUTES, PLEASE PAGE ME/CALL THROUGH THE COLLECTIONS AND ARCHIVES DIRECTOR. FROM 7PM-7AM, PLEASE PAGE [phone](COVR) Chief Complaint Syncope. History of Present Illness [...] CMP, Mag, phosph, EKG and telemetry. Admiting [facility] pt to the stepdown unit and consult [facility] cardiology team. We will follow-up on the [...] Date Noted NSTEMI (non-ST elevated myocardial infarction) ([facility]) 05/27/2023 Adrenal insufficiency ([facility]) 04/24/2023 Acute gout 04/20/2023 Hypertension 04/20/2023 Allergic [...] this hospital stay by a member of [facility] Medicine. Past Medical History No past medical history on file. Past Surgical History No past surgical history on file. Social History Social History Socioeconomic History Marital status: (more content not included)... [facility] 05-18-2023 Note [place] Electrophysiology Consult Note Reason for visit: hospital follow up HPI: Rehan Poole is a 58 y.o. year old with past medical history of hypertension, migraine headaches, seizure, neuropathy, history of PFO He was just seen at [facility] for syncope / CP, he [...] Last Year: No Allergies: Allergies Allergen Reactions [place] Anaphylaxis Penicillins Angioedema Weight: 104kg Visit Vitals [...] 0.5 mg by mouth in the morning. lhmeusjvese-crlzmzzpa-qthnmwfi (Trelegy Ellipta) 100-62.5-25 mcg blister with device [...] normal curvature, no (more content not included)... [facility] 04-24-2023 Note Patient given discha rge instructions and education provided regarding meds and appts. EKG called to educate patient about cardiac event monitor instructions. Patient waiting for imeds to deliver. [facility] notified of patient discharge. [facility] 04-23-2023 Note Hospital Medicine Daily Progress Note - 04/23/2023 11:22 AM; Room: [facility] Admission: 04/20/2023 4:06 PM; Length of stay: 2 days THE HOSPITALIST TEAM PREFERS TO USE GOOM CHAT FOR COMMUNICATION 7AM-7PM. IF I DO NOT RESPOND WITHIN 15 MINUTES, PLEASE PAGE ME/CALL THROUGH THE COLLECTIONS AND ARCHIVES DIRECTOR. FROM 7PM-7AM, PLEASE PAGE [phone](COVR) Code Status: Full Code Discharge Destination: home [...] AECOPD (mild): Continue doxy for 3 days. María. Seizure disorder: Continue home antiepileptic regimen. History [...] CORTISOL 8.3 04/22/2023 No results found for: [id number], IRON, TIBC, C3, C4, JADA, CANCA, ASO, PSA, CEA, CA125, CA199, AFP, CA153 Imaging Transthoracic echo (TTE) complete 1 1 [facility] Heart Station [address] [place] [address] [phone] (fax) Echocardiogram-[facility] Name: REHAN (more content not included)... [facility] 04-22-2023 Note Hospital Medicine Daily Progress Note - 04/22/2023 3:22 PM; Room: 3186/3186-01 Admission: 04/20/2023 4:06 PM; Length of stay: 1 days THE HOSPITALIST TEAM PREFERS TO USE GOOM CHAT FOR COMMUNICATION 7AM-7PM. IF I DO NOT RESPOND WITHIN 15 MINUTES, PLEASE PAGE ME/CALL THROUGH THE COLLECTIONS AND ARCHIVES DIRECTOR. FROM 7PM-7AM, PLEASE PAGE [phone](COVR) Code Status: Full Code Discharge Destination: home [...] unable to tolerate treadmill stress test. - [facility] does not provide inpatient endocrinology consultation. Flo [facility] and Cande Gomez were called to transfer patient for inpatient endocrinology evaluation. They both reported they do not provide that service. I called [facility] to transfer patient and they reported that they are tight on beds and would be unable to except transfer, although they do have inpatient endocrinology consultation. They recommended they speak with their on-call chief pilot at [facility] ([phone]) for teleconsultation. I spoke with Dr. Solis [...] oral, Daily topiram (more content not included)... [facility] 04-21-2023 Note Hospital Medicine Daily Progress Note - 04/21/2023 4:00 PM; Room: [facility] Admission: 04/20/2023 4:06 PM; Length of stay: 0 days THE HOSPITALIST TEAM PREFERS TO USE GOOM CHAT FOR COMMUNICATION 7AM-7PM. IF I DO NOT RESPOND WITHIN 15 MINUTES, PLEASE PAGE ME/CALL THROUGH THE COLLECTIONS AND ARCHIVES DIRECTOR. FROM 7PM-7AM, PLEASE PAGE [phone](COVR) Code Status: Full Code Discharge Destination: home [...] from last 7 days Lab Units 04/21/2383404/20/232029 SODIUM mmol/L 129* 129* POTASSIUM mmol/L 3.7 [...] 1.8 (L) 04/21/2023 No results found for: [id number], IRON, TIBC, C3, C4, JADA, CANCA, ASO, PSA, CEA, CA125, CA199, AFP, CA153 Imaging ECG 12 lead Normal sinus rhythm Low voltage QRS ST & T wave (more content not included)... [facility] 04-21-2023 Note ---- Attestation signed by [...] -- -- 69 15 -- -- -- 04/20/23 2051 126/88 36.7 ???C (98.1 ???F) Temporal 78 [...] Value Ventricular Rate 59 Atrial Rate 59 ME Interval 132 QRS DURATION 86 QT Interval 430 QTC CALCULATION(BAZETT) 425 P [place]ucl[place] 43 R-Euclid -12 T Wave [place] 73 Impression Sinus bradycardia Low voltage QRS Cannot rule out Anterior infarct , age undetermined Abnormal ECG No previous ECGs available Confirmed by Jerald CARNEY SAMER J. ([id number]) on 04/20/2023 4:36:07 PM Lab Results Component Value Date TROPONINI 0.00 04/20/2023 No echocardiogram results found for the past 12 months No nuclear medicine results found for the past 12 months Relevant Imaging Results ECG 12 lead Sinus bradycardia Low voltage QRS Cannot rule out Anterior infarct , age undetermined Abnormal ECG No previous ECGs available Confirmed by Jerald CARNEY SAMER J. ([id number]) on 04/20/2023 4:36:07 PM Assessment: Bradycardia, [...] questions. Helen Calixto PGY-2, Internal medicine resident [facility] 04-20-2023 Note Hospital Medicine History and Physical 04/20/2023 7:28 PM THE HOSPITALIST TEAM PREFERS TO USE Fleksy FOR COMMUNICATION 7AM-7PM. IF I DO NOT RESPOND WITHIN 15 MINUTES, PLEASE PAGE ME/CALL THROUGH THE COLLECTIONS AND ARCHIVES DIRECTOR. FROM 7PM-7AM, PLEASE PAGE [phone](COVR) Chief Complaint No chief complaint on file. History of Present Illness Rehan Poole is an 58 y.o. male who came from home with past medical history of hypertension, migraine headaches, seizure, neuropathy, history of PFO presented to [facility] as a transfer from [facility] ER because of new onset of [...] II arrhythmia and patient was transferred to [facility] for possible pacemaker placement. Here, [...] it is exertional. Blood work and the [facility] ER showed hyponatremia with a sodium [...] Diagnosis Date Noted Hyponatremia 04/20/2023 COPD exacerbation ([facility]) 04/20/2023 Acute gout 04/20/2023 Hypertension 04/20/2023 Allergic [...] will discontinue azithromycin (more content not included)... [facility] 11-27-2022 Note PROCEDURE: XR ANKLE LT 2V HISTORY: Unspecified fall , left ankle pain COMPARISON: None. FINDINGS: BONES:No fracture, acute abnormality, or significant arthropathy. SOFT TISSUES:Mild anterior lateral soft tissue swelling. EFFUSION:None visible. OTHER: Negative. IMPRESSION: 1. No acute bone abnormality. Electronically authenticated by: SHEN SOSA Date: 2022-11-27 11:27 [facility] 10-24-2022 Note PROCEDURE: XR HIP LT 2 3V W PELVIS HISTORY: Idiopathic osteoarthritis ; acute left hip pain after falling COMPARISON: None. FINDINGS: BONES:No fracture, acute abnormality, or significant arthropathy. SOFT TISSUES:No visible soft tissue swelling. EFFUSION:None visible. OTHER: Negative. IMPRESSION: 1. No acute bone abnormality or significant degenerative joint disease. Electronically authenticated by: SHEN SOSA Date: 2022-10-24 09:51 [facility] Summary Purpose Family History No [...] section and content) DATE CREATED AUTHOR 02/15/2019 [facility] DATE CREATED AUTHOR AUTHOR'S ORGANIZ ATION 12/22/2022 [facility] DATE CREATED AUTHOR AUTHOR'S ORGANIZ ATION 03/06/2023 [facility] DATE CREATED AUTHOR AUTHOR'S ORGANIZ ATION 08/11/2023 [facility] FOR RECORDS PERTAINING TO PATIENTS WHO ARE [...] BE BASED ON THE PRIMARY CLINICAL RECORDS. [facility]. provides no warranty or guarantee of the accuracy or completeness of information in this document.
[2023-09-12 17:40] LABS: Basophils Absolute Auto 0.1 10^3/uL (0.0-0.1); Basophils Percent Auto 0.8 % (0.2-2.0); Eosinophils Absolute Auto 0.1 10^3/uL (0.0-0.7); Eosinophils Percent Auto 0.7 % (0.9-7.0); Hematocrit 44.8 % (42.0-54.0); Hemoglobin 14.8 g/dL (14.0-18.0); Immature Granulocytes Abs Auto 0.04 10^3/uL (0.00-0.03); Immature Granulocytes Pct Auto 0.4 % (0.0-0.5); Lymphocytes Absolute Auto 3.8 10^3/uL (1.2-3.8); Lymphocytes Percent Auto 41.8 % (20.5-60.0); Mean Corpuscular Volume 93.7 fL (80.0-94.0); Monocytes Absolute Auto 0.4 10^3/uL (0.3-0.8); Monocytes Percent Auto 4.5 % (1.7-12.0); Neutrophils Absolute Auto 4.7 10^3/uL (1.4-6.5); Neutrophils Percent Auto 51.8 % (43.0-75.0); Platelet Count 249 10^3/uL (150-450); Red Blood Count 4.78 10^6/uL (4.70-6.10); Red Cell Distribution Width 16.2 % (11.0-15.0)
[2023-09-12 17:58] LABS: Lactate/Lactic Acid 0.8 mmol/L (0.4-2.0)
[2023-09-12] MEDS: ONDANSETRON PF 4 MG/2 ML VIAL IV (18:00)
[2023-09-12] MEDS: 0.9 % SODIUM CHLORIDE 1,000 ML 999 ML IV (18:00)
--- NOTE | 2023-09-12 18:10 | XR_ITS ---
The [address] [address] Patient Name: ELEAN TREJO MRN: [id number] date: 1965 Sex: M Assigned Patient Location: ED.MAIN Current Patient Location: ER Accession/Order Number: [id number] Exam Date: 09/12/2023 18:05 Report Date: 09/12/2023 18:18 At the request of: DERRICK ROSAS Procedure: XR chest 1V EXAM: XR chest 1V HISTORY: Chest pain. COMPARISON: Portable chest radiograph dated 07/21/2023. TECHNIQUE: AP erect portable chest radiograph performed. FINDINGS: The trachea is midline. The heart size is normal. The cardiac mediastinal silhouette and hilar shadows are normal. The lung volumes are normal. The lung dewey are clear. There is no pneumothorax. There is no osseous abnormality. XR/XR chest 1V IMPRESSION: Unremarkable AP erect portable chest radiograph. Electronically authenticated by: GARETH CHOW Date: 09/12/2023 18:18
[2023-09-12 18:12] LABS: INR 0.93; Prothrombin Time 9.9 sec (9.0-11.6)
[2023-09-12 18:28] LABS: Alanine Aminotransferase 12 U/L (16-63); Albumin Globulin Ratio 0.9; Albumin Level 3.7 g/dL (3.4-5.0); Alkaline Phosphatase 93 U/L (46-116); Anion Gap 14.3; Aspartate Amino Transferase 21 U/L (15-37); Bilirubin Total 0.4 mg/dL (0.2-1.0); Calcium 8.5 mg/dL (8.5-10.1); Carbon Dioxide 19.5 mmol/L (21.0-32.0); Chloride 93 mmol/L (98-107); Estimated GFR (African America >60 (>=60); Estimated GFR (Non-African Ame >60 (>=60); Globulin 4.3 g/dL; Glucose 91 mg/dL (74-106); Magnesium 2.2 mg/dL (1.8-2.4); Potassium 3.8 mmol/L (3.5-5.1); Thyroid Stimulating Hormone 92.657 uIU/mL (0.358-3.740); Troponin I High Sensitivity 4.4 pg/mL (4.0-76.1)
[2023-09-12 18:43] LABS: Sodium 123 mmol/L (136-145)
[2023-09-12 19:10] LABS: Free T4 0.16 ng/dL (0.76-1.46)
[2023-09-12 19:17] LABS: Free T3 <0.50 pg/mL (2.18-3.98)
--- NOTE | 2023-09-12 19:18 | ECG_ITS ---
The [facility] Test Date: 2023-09-12 Pat Name: ELENA TREJO Department: Room: - Gender: Male [employer]: : 1965 Requested By: PEE LAKHANI Order Number: [id number] Reading MD: PEE LAKHANI Measurements Intervals [place] Rate: 56 P: 47 NE: 126 QRS: 36 QRSD: 90 T: -30 QT: 416 QTc: 407 Interpretive Statements 1100 Sinus rhythm 7500 Abnormal QRS-T angle Non-Specific T wave inversion in III 8100 Low QRS voltage 9150 abnormal ECG Compared to ECG 09/12/2023 17:24:30 No significant changes Electronically Signed On 09-14-2023 8:35:11 EST by PEE LAKHANI
[2023-09-12 19:23] LABS: Bilirubin Urine NEGATIVE (NEGATIVE); Blood Urine NEGATIVE (NEGATIVE); Clarity Urine CLEAR (CLEAR); Color Urine LT. YELLOW (YELLOW); Glucose Urine UA NEGATIVE (NEGATIVE); Ketones Urine TRACE mg/dL (NEGATIVE); Leukocyte Esterase Urine NEGATIVE (NEGATIVE); Nitrite Urine NEGATIVE (NEGATIVE); Protein Urine NEGATIVE (NEG/TRACE); Specific Gravity Urine 1.015 (1.005-1.025); Urobilinogen Urine 0.2 EU/dL (0.2-1.0)
[2023-09-12 19:27] VITALS: PULSE 52
[2023-09-12 19:29] LABS: Urine Microscopic Indicated NO
[2023-09-12 19:36] LABS: Troponin I High Sensitivity 4.9 pg/mL (4.0-76.1)
[2023-09-12 19:50] LABS: Sodium Urine Random 76 mmol/L (30-90)
[2023-09-12 20:03] VITALS: BP 150/80; PULSE 58; RESP 18; O2SAT 99
--- OUTSIDE RECORDS SUMMARY | 2023-09-12 20:16 | XMS_ITS | CCD ---
Author Name Unknown Address [address] [place] [address] Organization [facility] Care Team Providers Care Cage Manager Name Role Phone ANAYELI ., DR GLASGOW [...] Translations: [PENICILLINS] Drug allergy (disorder) 05-30-[address] [facility] Repository (2 sources) strawberry allergenic extract; Translations: [STRAWBERRY] Drug Allergy 05-13-[address] [facility] Repository Problems Active Problems Problem Classification [...] 10-29-2022 Chronic Other aftercare (1 source) Other chcf (current) drug therapy; Translations: [OTH GROUP HOME CURRENT DRUG THERAPY] Onset: 12-04-2022 Episodic Other [...] Range Facility Office Visiton 07-17-2023 Follow-up visit [id number] Rehan Poole 1965 M Date Provider Department Center 07/17/2023 GÉNESIS SCHERER CARD [facility] No family history on file Level of Service:[address] [place] OFFICE/OUTPATIENT ESTABLISHED MOD MDM 30 MIN [facility] 30on 05-28-2023 30 The patient is [...] goals for the shift include VSS Normal [facility] APTTon 05-28-2023 ACTIVATED PARTIAL THROMBOPLASTIN TIME IN PPP BY COAGULATION ASSAY 33.8 Seconds Normal 25.0-35.0 [facility] Comment on above: Result Comment: Clin ical significance of the APTT is questionable in the presence of heparin. Performed By: #### L [id number] #### [facility] ([facility]) [address] [place] [address] B-TYPE NATRIURETIC PEPTIDEon 05-28-2023 Natriuretic peptide B (Bld) [Mass/Vol] 76 pg/mL Normal 0-100 [facility] Comment on above: Performed By: #### L [id number] #### [facility] ([facility]) [address] [place] [address] BLOOD CULTUREon 05-28-2023 Bacteria identified Cx Nom (Bld) No growth at 5 days Normal [facility] Comment on above: Performed By: #### L [id number] #### [facility] ([facility]) [address] [place] [address] Order Comment: From a different site than #1. Performed By: #### L [id number] #### [facility] ([facility]) [address] [place] [address] CBC WITH AUTO DIFFERENTIALon 05-28-2023 Basophils (Bld) [#/Vol] 0.05 10*3/uL Normal 0.00-0.20 [facility] Comment on above: Performed By: #### L [id number] #### [facility] ([facility]) [address] [place] [address] Basophils/100 WBC (Bld) 0.4 % Normal 0.0-1.0 [facility] Comment on above: Performed By: #### L [id number] #### [facility] ([facility]) [address] [place] [address] Eosinophils (Bld) [#/Vol] 0.02 10*3/uL Normal 0.00-0.50 [facility] Comment on above: Performed By: #### L [id number] #### [facility] ([facility]) [address] [place] [address] Eosinophils/100 WBC (Bld) 0.1 % Normal 0.0-6.0 [facility] Comment on above: Performed By: #### L [id number] #### [facility] ([facility]) [address] [place] [address] Erythrocyte distribution width (RBC) [Ratio] 17.5 % High 11.5-15.0 [facility] Comment on above: Performed By: #### L [id number] #### [facility] ([facility]) [address] [place] [address] ERYTHROCYTE MEAN CORPUSCULAR HEMOGLOBIN CONCENTRATION (G/DL) BY AUTOMATED 33.7 g/dL Normal 32.0-35.0 [facility] Comment on above: Performed By: #### L [id number] #### [facility] ([facility]) [address] [place] [address] Hematocrit (Bld) [Volume fraction] 34.4 % Low 39.0-55.0 [facility] Comment on above: Performed By: #### L [id number] #### [facility] ([facility]) [address] [place] [address] Hemoglobin (Bld) [Mass/Vol] 11.6 g/dL Low 13.0-17.0 [facility] Comment on above: Performed By: #### L [id number] #### [facility] ([facility]) [address] [place] [address] Immature granulocytes (Bld) [#/Vol] 0.16 10*3/uL Normal 0.00-0.20 [facility] Comment on above: Performed By: #### L [id number] #### [facility] ([facility]) [address] [place] [address] Immature granulocytes/100 WBC (Bld) 1.1 % High 0.0-1.0 [facility] Comment on above: Performed By: #### L [id number] #### [facility] ([facility]) [address] [place] [address] Lymphocytes (Bld) [#/Vol] 2.52 10*3/uL Normal 1.20-4.00 [facility] Comment on above: Performed By: #### L [id number] #### [facility] ([facility]) [address] [place] [address] Lymphocytes/100 WBC (Bld) 17.9 % Low 20.0-45.0 [facility] Comment on above: Performed By: #### L [id number] #### [facility] ([facility]) [address] [place] [address] MCH (RBC) [Entitic mass] 33.7 pg High 27.0-33.0 [facility] Comment on above: Performed By: #### L [id number] #### [facility] ([facility]) [address] [address] MCV (RBC) [Entitic vol] 100.0 fL High 82.0-98.0 [facility] Comment on above: Performed By: #### L [id number] #### [facility] ([facility]) [address] [place] [address] Monocytes (Bld) [#/Vol] 1.27 10*3/uL High 0.10-1.00 [facility] Comment on above: Performed By: #### L [id number] #### [facility] ([facility]) [address] [place] [address] Monocytes/100 WBC (Bld) 9.0 % Normal 5.0-12.0 [facility] Comment on above: Performed By: #### L [id number] #### [facility] ([facility]) [address] [place] [address] Neutrophils (Bld) [#/Vol] 10.03 10*3/uL High 1.60-7.60 [facility] Comment on above: Performed By: #### L [id number] #### [facility] ([facility]) [address] [place] [address] Neutrophils/100 WBC (Bld) 71.5 % Normal 40.0-72.0 [facility] Comment on above: Performed By: #### L [id number] #### [facility] ([facility]) [address] [place] [address] NRBC (PER 100 WBCS) BY AUTOMATED COUNT 0.0 % Normal 0 [facility] Comment on above: Performed By: #### L [id number] #### [facility] ([facility]) [address] [place] [address] PLATELETS (10*3/UL) IN BLOOD AUTOMATED COUNT 232 10*3/uL Normal 150-400 [facility] Comment on above: Performed By: #### L [id number] #### [facility] ([facility]) [address] [place] [address] RBC (Bld) [#/Vol] 3.44 10*6/uL Low 4.20-5.70 [facility] Comment on above: Performed By: #### L [id number] #### [facility] ([facility]) [address] [place] [address] WBC (Bld) [#/Vol] 14.05 10*3/uL High 4.00-10.60 [facility] Comment on above: Performed By: #### L [id number] #### [facility] ([facility]) [address] [place] [address] COMPREHENSIVE METABOLIC PANE Dawit 05-28-2023 Albumin [Mass/Vol] 4.2 g/dL Normal 3.5-5.7 [facility] Comment on above: Performed By: #### L [id number] #### [facility] ([facility]) [address] [place] [address] ALP [Catalytic activity/Vol] 95 U/L Normal 34-104 [facility] Comment on above: Performed By: #### L [id number] #### [facility] ([facility]) [address] [place] [address] ALT [Catalytic activity/Vol] 18 U/L Normal 7-52 [facility] Comment on above: Performed By: #### L [id number] #### [facility] ([facility]) [address] [place] [address] Anion gap [Moles/Vol] 12 mmol/L Normal 7-20 [facility] Comment on above: Performed By: #### L [id number] #### [facility] ([facility]) [address] [place] [address] AST [Catalytic activity/Vol] 12 U/L Low 13-39 [facility] Comment on above: Performed By: #### L [id number] #### [facility] ([facility]) [address] [place] [address] Bilirubin [Mass/Vol] 0.4 mg/dL Normal 0.3-1.0 [facility] Comment on above: Performed By: #### L [id number] #### [facility] ([facility]) [address] [place] [address] Calcium [Mass/Vol] 9.3 mg/dL Normal 8.6-10.3 [facility] Comment on above: Performed By: #### L [id number] #### [facility] ([facility]) [address] [place] [address] Chloride [Moles/Vol] 106 mmol/L Normal 98-107 [facility] Comment on above: Performed By: #### L [id number] #### [facility] ([facility]) [address] [place] [address] CO2 [Moles/Vol] 19 mmol/L Low 21-31 [facility] Comment on above: Performed By: #### L [id number] #### [facility] ([facility]) [address] [place] [address] Creatinine [Mass/Vol] 0.82 mg/dL Normal 0.70-1.30 [facility] Comment on above: Performed By: #### L [id number] #### [facility] ([facility]) [address] [place] [address] GLOMERULAR FILTRATION RATE ML/MIN/1.73 SQ M.PREDICTED 101.8 mL/min/1.73m*2 Normal >60.0 [facility] Comment on above: Result Comment: The [facility]???s estimated glomerular filtration rate (eGFR) will [...] individuals. Performed By: #### L [id number] #### [facility] ([facility]) [address] [place] [address] Glucose [Mass/Vol] 96 mg/dL Normal 70-100 [facility] Comment on above: Performed By: #### L [id number] #### [facility] ([facility]) [address] [place] [address] Potassium [Moles/Vol] 3.5 mmol/L Normal 3.5-5.1 [facility] Comment on above: Performed By: #### L [id number] #### [facility] ([facility]) [address] [place] [address] Protein [Mass/Vol] 6.9 g/dL Normal 6.0-8.3 [facility] Comment on above: Performed By: #### L [id number] #### [facility] ([facility]) [address] [place] [address] Sodium [Moles/Vol] 133 mmol/L Low 136-145 [facility] Comment on above: Performed By: #### L [id number] #### [facility] ([facility]) [address] [place] [address] Urea nitrogen [Mass/Vol] 10 mg/dL Normal 7-25 [facility] Comment on above: Performed By: #### L [id number] #### [facility] ([facility]) [address] [place] [address] UREA NITROGEN/CREATININE (MASS RATIO) IN SER/PLAS 12.2 Normal [facility] Comment on above: Performed By: #### L [id number] #### [facility] ([facility]) [address] [place] [address] CONSULTon 05-28-2023 CONSULT -- Attestation signed by [...] History No family history on file. Allergies Selma and Penicillins Medications Medications Prior to Admission [...] the past (more content not included)... Normal [facility] CT HEAD WO IV CONTRASTon CT [...] this report. Electronically signed: Araceli Moseley. Normal [facility] ETHANOLon 05-28-2023 ETHANOL (MG/DL) IN SER/PLAS <10 Normal [facility] Comment on above: Performed By: #### L [id number] #### [facility] ([facility]) [address] [place] [address] ETHANOL CALCULATED (%) Normal [facility] Comment on above: Performed By: #### L [id number] #### [facility] ([facility]) [address] [place] [address] FOLATEon 05-28-2023 FOLATE (NG/ML) IN SER/PLAS 7.00 ng/mL Normal 6.6-1000 [facility] Comment on above: Performed By: #### L [id number] #### [facility] ([facility]) [address] [place] [address] HEMOGLOBIN A1Con 05-28-2023 Glucose [Mass/Vol] 114 mg/dL Normal [facility] Comment on above: Performed By: #### L [id number] #### [facility] ([facility]) [address] [place] [address] HbA1c (Bld) [Mass fraction] 5.6 % Normal 4.0-6.0 [facility] Comment on above: Performed By: #### L [id number] #### [facility] ([facility]) [address] [place] [address] LACTIC ACID WITH 4 HOUR REFL EXon 05-28-2023 LACTATE (MMOL/L) IN SER/PLAS 0.7 mmol/L Normal 0.5-2.2 [facility] Comment on above: Performed By: #### L [id number] #### [facility] ([facility]) [address] [place] [address] LIPID PANELon 05-28-2023 CHOL/HDL 2.7 mg/dL Normal [facility] Comment on above: Performed By: #### L [id number] #### [facility] ([facility]) [address] [place] [address] Cholesterol [Mass/Vol] 115 mg/dL Low 120-200 [facility] Comment on above: Performed By: #### L [id number] #### [facility] ([facility]) [address] [place] [address] Magnesium [Mass/Vol] 72 mg/dL Normal 40-149 [facility] Comment on above: Result Comment: TRIG LYCERIDE REFERENCE RANGE: 20 YEARS AND OLDER CARDIOVASCULAR RISK LESS THAN 150 mg/dL LOW RISK 150 TO 199 mg/dL BORDERLINE RISK 200 mg/dL AND GREATER HIGH RISK Performed By: #### L [id number] #### [facility] ([facility]) [address] [place] [address] Magnesium [Mass/Vol] 58 mg/dL Normal 0-160 [facility] Comment on above: Performed By: #### L [id number] #### [facility] ([facility]) [address] [place] [address] Magnesium [Mass/Vol] 43 mg/dL Normal 23-92 [facility] Comment on above: Performed By: #### L [id number] #### [facility] ([facility]) [address] [place] [address] NON HDL CHOL. (LDL+VLDL) 72 Normal [facility] Comment on above: Performed By: #### L [id number] #### [facility] ([facility]) [address] [place] [address] TOTAL VLDL-C 14 mg/dL Normal 0-40 [facility] Comment on above: Performed By: #### L [id number] #### [facility] ([facility]) [address] [place] [address] MAGNESIUMon 05-28-2023 Magnesium [Mass/Vol] 1.7 mg/dL Low 1.9-2.7 [facility] Comment on above: Performed By: #### L [id number] #### [facility] ([facility]) [address] [place] [address] PHOSPHORUSon 05-28-2023 Magnesium [Mass/Vol] 3.0 mg/dL Normal 2.5-5.0 [facility] Comment on above: Performed By: #### L [id number] #### [facility] ([facility]) [address] [place] [address] POCT GLUCOSE METER UNSOLICIT ED RESULTSon 05-28-2023 Glucose [Mass/Vol] 97 mg/dL Normal 70-105 [facility] Comment on above: Order Comment: Waive d Testing in the ED is performed under the ED CLIA certificate #[id number]. Result Comment: [email or web address] Performed By: #### L [id number] #### [facility] ([facility]) [address] [place] [address] Glucose [Mass/Vol] 101 mg/dL Normal 70-105 [facility] Comment on above: Order Comment: Waive d Testing in the ED is performed under the ED CLIA certificate #[id number]. Result Comment: [email or web address] Performed By: #### L [id number] #### [facility] ([facility]) [address] [place] [address] PROTIME-INRon 05-28-2023 INR IN PPP BY COAGULATION ASSAY 1.01 Normal 0.90-1.10 [facility] Comment on above: Result Comment: ACCC [...] 1995;[id number]. Performed By: #### L [id number] #### [facility] ([facility]) [address] [place] [address] PROTHROMBIN TIME (PT) IN PPP BY COAGULATION ASSAY 13.3 Seconds Normal 12.3-14.8 [facility] Comment on above: Performed By: #### L [id number] #### [facility] ([facility]) [address] [place] [address] T4, FREEon 05-28-2023 THYROXINE (T4) FREE (NG/DL) IN SER/PLAS 1.90 ng/dL High 0.71-1.85 [facility] Comment on above: Performed By: #### L [id number] #### [facility] ([facility]) [address] [place] [address] TOXICOLOGY PANEL URINEon AMPHETAMINE+METHAMPH ETAMINE SCREEN (PRESENCE) IN URINE Negative Normal Negative [facility] Comment on above: Performed By: #### L [id number] #### [facility] ([facility]) [address] [place] [address] BARBITURATES PRESENCE IN URINE BY SCREEN METHOD Negative Normal Negative [facility] Comment on above: Performed By: #### L [id number] #### [facility] ([facility]) [address] [place] [address] Benzodiazepines Ql (U) Negative Normal Negative [facility] Comment on above: Performed By: #### L [id number] #### [facility] ([facility]) [address] [place] [address] CANNABINOID (PRESENCE) IN URINE BY SCREEN METHOD Negative Normal Negative [facility] Comment on above: Performed By: #### L [id number] #### [facility] ([facility]) [address] [place] [address] Cocaine Ql (U) Negative Normal Negative [facility] Comment on above: Performed By: #### L [id number] #### [facility] ([facility]) [address] [place] [address] METHADONE (PRESENCE) IN URINE BY SCREEN METHOD Negative Normal Negative [facility] Comment on above: Performed By: #### L [id number] #### [facility] ([facility]) [address] [place] [address] OPIATES (PRESENCE) IN URINE BY SCREEN METHOD Negative Normal Negative [facility] Comment on above: Performed By: #### L [id number] #### [facility] ([facility]) [address] [place] [address] PHENCYCLIDINE PRESENCE IN URINE BY SCREEN METHOD Negative Normal Negative [facility] Comment on above: Performed By: #### L [id number] #### [facility] ([facility]) [address] [place] [address] Propoxyphene Screen Ql (U) Negative Normal Negative [facility] Comment on above: Performed By: #### L [id number] #### [facility] ([facility]) [address] [place] [address] TRICYCLIC ANTIDEPRESSANTS (PRESENCE) IN URINE Negative Normal Negative [facility] Comment on above: Performed By: #### L [id number] #### [facility] ([facility]) [address] [place] [address] TROPONIN Ion 05-28-2023 Troponin I.cardiac [Mass/Vol] 0.01 ng/mL Normal 0.00-0.04 [facility] Comment on above: Performed By: #### L [id number] #### [facility] ([facility]) [address] [place] [address] Troponin I.cardiac [Mass/Vol] 0.02 ng/mL Normal 0.00-0.04 [facility] Comment on above: Performed By: #### L [id number] #### [facility] ([facility]) [address] [place] [address] Troponin I.cardiac [Mass/Vol] 0.01 ng/mL Normal 0.00-0.04 [facility] Comment on above: Performed By: #### L [id number] #### [facility] ([facility]) [address] [place] [address] TSH3 REFLEX TO FT4on 023 THYROTROPIN (MIU/L) IN SER/PLAS BY DETECTION LIMIT <= 0.05 MIU/L 0.15 mIU/L Low 0.34-5.60 [facility] Comment on above: Performed By: #### L [id number] #### [facility] ([facility]) [address] [place] [address] URINALYSIS WITH REFLEX CULTU REon 05-28-2023 BILIRUBIN, TOTAL PRESENCE IN URINE Negative Normal Negative [facility] Comment on above: Order Comment: Micro scopics not performed on urines with negative chemical reactions unless requested on original order. Performed By: #### L [id number] #### [facility] ([facility]) [address] [place] [address] Clarity (U) Clear Normal Clear [facility] Comment on above: Order Comment: Micro scopics not performed on urines with negative chemical reactions unless requested on original order. Performed By: #### L [id number] #### [facility] ([facility]) [address] [place] [address] Color (U) Yellow Normal Yellow [facility] Comment on above: Order Comment: Micro scopics not performed on urines with negative chemical reactions unless requested on original order. Performed By: #### L [id number] #### [facility] ([facility]) [address] [place] [address] Glucose (U) [Mass/Vol] Negative Normal Negative [facility] Comment on above: Order Comment: Micro scopics not performed on urines with negative chemical reactions unless requested on original order. Performed By: #### L [id number] #### [facility] ([facility]) [address] [place] [address] HEMOGLOBIN PRESENCE IN URINE Negative Normal Negative [facility] Comment on above: Order Comment: Micro scopics not performed on urines with negative chemical reactions unless requested on original order. Performed By: #### L [id number] #### [facility] ([facility]) [address] [place] [address] Ketones Ql (U) Trace Abnormal Negative [facility] Comment on above: Order Comment: Micro scopics not performed on urines with negative chemical reactions unless requested on original order. Performed By: #### L [id number] #### [facility] ([facility]) [address] [place] [address] LEUKOCYTE ESTERASE PRESENCE IN URINE BY TEST STRIP Negative Normal Negative [facility] Comment on above: Order Comment: Micro scopics not performed on urines with negative chemical reactions unless requested on original order. Performed By: #### L [id number] #### [facility] ([facility]) [address] [place] [address] NITRITE PRESENCE IN URINE Negative Normal Negative [facility] Comment on above: Order Comment: Micro scopics not performed on urines with negative chemical reactions unless requested on original order. Performed By: #### L [id number] #### [facility] ([facility]) [address] [place] [address] pH (U) 6.0 [pH] Normal 5.0-8.0 [facility] Comment on above: Order Comment: Micro scopics not performed on urines with negative chemical reactions unless requested on original order. Performed By: #### L [id number] #### [facility] ([facility]) [address] [place] [address] Protein (U) [Mass/Vol] Negative Normal Negative [facility] Comment on above: Order Comment: Micro scopics not performed on urines with negative chemical reactions unless requested on original order. Performed By: #### L [id number] #### [facility] ([facility]) [address] [place] [address] Specific gravity (U) [Rel density] 1.019 Normal 1.015-1.020 [facility] Comment on above: Order Comment: Micro scopics not performed on urines with negative chemical reactions unless requested on original order. Performed By: #### L [id number] #### [facility] ([facility]) [address] [place] [address] UROBILINOGEN (EU/DL) IN URINE 2.0 EU/dL Abnormal Negative [facility] Comment on above: Order Comment: Micro scopics not performed on urines with negative chemical reactions unless requested on original order. Performed By: #### L [id number] #### [facility] ([facility]) [address] [place] [address] VITAMIN B12on 05-28-2023 Cobalamin (Vitamin B12) [Mass/Vol] 119 pg/mL Low 180-914 [facility] Comment on above: Result Comment: REFE RENCE RANGES: 180-914 pg/mL Normal 145-179 pg/mL Indeterminate <145 pg/mL Deficient Performed By: #### L [id number] #### [facility] ([facility]) [address] [place] [address] Office Visiton 05-18-2023 Follow-up visit [id number] Rehan Pooel 1965 M Date Provider Department Center 05/18/2023 [facility] No family history on file Level of Service:76740 [place] OFFICE/OUTPATIENT ESTABLISHED MOD MDM 30-39 MIN Reason for Visit and Comments: Follow-up [[id number]] Normal [facility] 30on 04-24-2023 30 Problem: Pain - [...] goals for the shift include VSS Normal [facility] 30 The patient is Moderately Stable [...] maintained within prescribed range Outcome: Progressing Normal [facility] BASIC METABOLIC PANELon 10- Anion gap [Moles/Vol] 12 mmol/L Normal -20 [facility] Comment on above: Performed By: #### L [id number] #### [facility] ([facility]) [address] [place] [address] Calcium [Mass/Vol] 9.3 mg/dL Normal 8.6-10.3 [facility] Comment on above: Performed By: #### L [id number] #### [facility] ([facility]) [address] [place] [address] Chloride [Moles/Vol] 106 mmol/L Normal 98-107 [facility] Comment on above: Performed By: #### L [id number] #### [facility] ([facility]) [address] [place] [address] CO2 [Moles/Vol] 21 mmol/L Normal 21-31 [facility] Comment on above: Performed By: #### L [id number] #### [facility] ([facility]) [address] [place] [address] Creatinine [Mass/Vol] 1.20 mg/dL Normal 0.70-1.30 [facility] Comment on above: Performed By: #### L [id number] #### [facility] ([facility]) [address] [place] [address] GLOMERULAR FILTRATION RATE ML/MIN/1.73 SQ M.PREDICTED 70.1 mL/min/1.73m*2 Normal >60.0 [facility] Comment on above: Result Comment: [facility]???s estimated glomerular filtration rate (eGFR) will [...] individuals. Performed By: #### L [id number] #### [facility] ([facility]) [address] [place] [address] Glucose [Mass/Vol] 98 mg/dL Normal 70-100 [facility] Comment on above: Performed By: #### L [id number] #### [facility] ([facility]) [address] [place] [address] Potassium [Moles/Vol] 3.8 mmol/L Normal 3.5-5.1 [facility] Comment on above: Performed By: #### L [id number] #### [facility] ([facility]) [address] [place] [address] Sodium [Moles/Vol] 135 mmol/L Low 136-145 [facility] Comment on above: Performed By: #### L [id number] #### [facility] ([facility]) [address] [place] [address] Urea nitrogen [Mass/Vol] 10 mg/dL Normal 7-25 [facility] Comment on above: Performed By: #### L [id number] #### [facility] ([facility]) [address] [place] [address] UREA NITROGEN/CREATININE (MASS RATIO) IN SER/PLAS 8.3 Normal [facility] Comment on above: Performed By: #### L [id number] #### [facility] ([facility]) [address] [place] [address] CBCon 04-24-2023 Erythrocyte distribution width (RBC) [Ratio] 17.1 % High 11.5-15.0 [facility] Comment on above: Performed By: #### L [id number] #### [facility] ([facility]) [address] [place] [address] ERYTHROCYTE MEAN CORPUSCULAR HEMOGLOBIN CONCENTRATION (G/DL) BY AUTOMATED 33.3 g/dL Normal 32.0-35.0 [facility] Comment on above: Performed By: #### L [id number] #### [facility] ([facility]) [address] [place] [address] Hematocrit (Bld) [Volume fraction] 35.1 % Low 39.0-55.0 [facility] Comment on above: Performed By: #### L [id number] #### [facility] ([facility]) [address] [place] [address] Hemoglobin (Bld) [Mass/Vol] 11.7 g/dL Low 13.0-17.0 [facility] Comment on above: Performed By: #### L [id number] #### [facility] ([facility]) [address] [place] [address] MCH (RBC) [Entitic mass] 32.7 pg Normal 27.0-33.0 [facility] Comment on above: Performed By: #### L [id number] #### [facility] ([facility]) [address] [place] [address] MCV (RBC) [Entitic vol] 98.0 fL Normal 82.0-98.0 [facility] Comment on above: Performed By: #### L [id number] #### [facility] ([facility]) [address] [place] [address] PLATELETS (10*3/UL) IN BLOOD AUTOMATED COUNT 216 10*3/uL Normal 150-400 [facility] Comment on above: Performed By: #### L [id number] #### [facility] ([facility]) [address] [place] [address] RBC (Bld) [#/Vol] 3.58 10*6/uL Low 4.20-5.70 [facility] Comment on above: Performed By: #### L [id number] #### [facility] ([facility]) [address] [place] [address] WBC (Bld) [#/Vol] 11.41 10*3/uL High 4.00-10.60 [facility] Comment on above: Performed By: #### L [id number] #### [facility] ([facility]) [address] [place] [address] DSon 04-24-2023 DS Admission Admitted 04/20/2023 for [...] Medications These medications were sent to [facility] - [place], [place] - [address] [place] [address] [place] [address], [facility] [address] hydrocortisone 10 mg tablet levothyroxine 200 mcg tablet metoprolol tartrate 25 mg tablet Activity Patient currently has no discharge activity orders Diet Patient currently has no discharge diet orders Allergies [place]ma and Penicillins Hospital Course Rehan Poole is an 58 y.o. male who came from home with past medical history of hypertension, migraine headaches, seizure, neuropathy, history of PFO presented to [facility] as a transfer Concern for Mobitz 2 [...] hydrocortisone. Case was discussed with endocrinology at [facility] for potential transfer. Advised to change to [...] CO2 19 (more content not included)... Normal [facility] MAGNESIUMon 04-24-2023 Magnesium [Mass/Vol] 1.9 mg/dL Normal 1.9-2.7 [facility] Comment on above: Performed By: #### L [id number] #### [facility] ([facility]) [address] [place] [address] 30on 04-23-2023 30 The patient is Moderately Stable - Low risk of patient condition declining or worsening The patient's goals for the shift include comfort/rest The clinical goals for the shift include VSS Over the shift, the patient did not make progress toward the following goals. Barriers to progression include hypothyroidism. Recommendations to address these barriers include synthroid. Normal [facility] 30 The patient is Moderately Stable [...] and behaviors that affect risk of falls [place] fall precautions as indicated by assessment Educate [...] and prevent overall improvement and discharge Normal [facility] BASIC METABOLIC PANELon 10-0 Anion gap [Moles/Vol] 12 mmol/L Normal - [facility] Comment on above: Performed By: #### L [id number] #### [facility] ([facility]) [address] [place] [address] Calcium [Mass/Vol] 9.3 mg/dL Normal 8.6-10.3 [facility] Comment on above: Performed By: #### L [id number] #### [facility] ([facility]) [address] [place] [address] Chloride [Moles/Vol] 104 mmol/L Normal 98-107 [facility] Comment on above: Performed By: #### L [id number] #### [facility] ([facility]) [address] [place] [address] CO2 [Moles/Vol] 18 mmol/L Low 21-31 [facility] Comment on above: Performed By: #### L [id number] #### [facility] ([facility]) [address] [place] [address] Creatinine [Mass/Vol] 1.12 mg/dL Normal 0.70-1.30 [facility] Comment on above: Performed By: #### L [id number] #### [facility] ([facility]) [address] [place] [address] GLOMERULAR FILTRATION RATE ML/MIN/1.73 SQ M.PREDICTED 76.1 mL/min/1.73m*2 Normal >60.0 [facility] Comment on above: Result Comment: [facility]???s estimated glomerular filtration rate (eGFR) will [...] individuals. Performed By: #### L [id number] #### [facility] ([facility]) [address] [place] [address] Glucose [Mass/Vol] 139 mg/dL High 70-100 [facility] Comment on above: Performed By: #### L [id number] #### [facility] ([facility]) [address] [place] [address] Potassium [Moles/Vol] 4.2 mmol/L Normal 3.5-5.1 [facility] Comment on above: Performed By: #### L [id number] #### [facility] ([facility]) [address] [place] [address] Sodium [Moles/Vol] 130 mmol/L Low 136-145 [facility] Comment on above: Performed By: #### L [id number] #### [facility] ([facility]) [address] [place] [address] Urea nitrogen [Mass/Vol] 11 mg/dL Normal 7-25 [facility] Comment on above: Performed By: #### L [id number] #### [facility] ([facility]) [address] [place] [address] UREA NITROGEN/CREATININE (MASS RATIO) IN SER/PLAS 9.8 Normal [facility] Comment on above: Performed By: #### L [id number] #### [facility] ([facility]) [address] [place] [address] CBCon 04-23-2023 Erythrocyte distribution width (RBC) [Ratio] 17.0 % High 11.5-15.0 [facility] Comment on above: Performed By: #### L [id number] #### [facility] ([facility]) [address] [place] [address] ERYTHROCYTE MEAN CORPUSCULAR HEMOGLOBIN CONCENTRATION (G/DL) BY AUTOMATED 32.7 g/dL Normal 32.0-35.0 [facility] Comment on above: Performed By: #### L [id number] #### [facility] ([facility]) [address] [place] [address] Hematocrit (Bld) [Volume fraction] 40.4 % Normal 39.0-55.0 [facility] Comment on above: Performed By: #### L [id number] #### [facility] ([facility]) [address] [place] [address] Hemoglobin (Bld) [Mass/Vol] 13.2 g/dL Normal 13.0-17.0 [facility] Comment on above: Performed By: #### L [id number] #### [facility] ([facility]) [address] [place] [address] MCH (RBC) [Entitic mass] 32.8 pg Normal 27.0-33.0 [facility] Comment on above: Performed By: #### L [id number] #### [facility] ([facility]) [address] [place] [address] MCV (RBC) [Entitic vol] 100.5 fL High 82.0-98.0 [facility] Comment on above: Performed By: #### L [id number] #### [facility] ([facility]) [address] [place] [address] PLATELETS (10*3/UL) IN BLOOD AUTOMATED COUNT 198 10*3/uL Normal 150-400 [facility] Comment on above: Performed By: #### L [id number] #### [facility] ([facility]) [address] [place] [address] RBC (Bld) [#/Vol] 4.02 10*6/uL Low 4.20-5.70 [facility] Comment on above: Performed By: #### L [id number] #### [facility] ([facility]) [address] [place] [address] WBC (Bld) [#/Vol] 8.96 10*3/uL Normal 4.00-10.60 [facility] Comment on above: Performed By: #### L [id number] #### [facility] ([facility]) [address] [place] [address] MAGNESIUMon 04-23-2023 Magnesium [Mass/Vol] 2.1 mg/dL Normal 1.9-2.7 [facility] Comment on above: Performed By: #### L [id number] #### [facility] ([facility]) [address] [place] [address] T4, FREEon 04-23-2023 THYROXINE (T4) FREE (NG/DL) IN SER/PLAS 0.59 ng/dL Low 0.71-1.85 [facility] Comment on above: Performed By: #### L [id number] #### [facility] ([facility]) [address] [place] [address] TSH3 REFLEX TO FT4on 023 THYROTROPIN (MIU/L) IN SER/PLAS BY DETECTION LIMIT <= 0.05 MIU/L 45.61 mIU/L High 0.34-5.60 [facility] Comment on above: Performed By: #### L [id number] #### [facility] ([facility]) [address] [place] [address] 30on 04-22-2023 30 The patient is Moderately [...] range: Monitor blood glucose as ordered Normal [facility] ACTHon 04-22-2023 ACTH (ADRENOCORTICOTROPHI C HORMONE) 7 pg/mL Normal 7-69 [facility] Comment on above: Result Comment: Test Performed by [employer] [facility] [address] [place], [place] [id number] - [employer] 04/23/2023 16:24 Performed By: #### L [id number] #### [facility] ([facility]) [address] [place] [address] BASIC METABOLIC PANELon 10-0 Anion gap [Moles/Vol] 12 mmol/L Normal 7-20 [facility] Comment on above: Performed By: #### L [id number] #### [facility] ([facility]) [address] [place] [address] Calcium [Mass/Vol] 8.7 mg/dL Normal 8.6-10.3 [facility] Comment on above: Performed By: #### L [id number] #### [facility] ([facility]) [address] [place] [address] Chloride [Moles/Vol] 102 mmol/L Normal 98-107 [facility] Comment on above: Performed By: #### L [id number] #### [facility] ([facility]) [address] [place] [address] CO2 [Moles/Vol] 19 mmol/L Low 21-31 [facility] Comment on above: Performed By: #### L [id number] #### [facility] ([facility]) [address] [place] [address] Creatinine [Mass/Vol] 1.18 mg/dL Normal 0.70-1.30 [facility] Comment on above: Performed By: #### L [id number] #### [facility] ([facility]) [address] [place] [address] GLOMERULAR FILTRATION RATE ML/MIN/1.73 SQ M.PREDICTED 71.5 mL/min/1.73m*2 Normal >60.0 [facility] Comment on above: Result Comment: [facility]???s estimated glomerular filtration rate (eGFR) will [...] individuals. Performed By: #### L [id number] #### [facility] ([facility]) [address] [place] [address] Glucose [Mass/Vol] 105 mg/dL High 70-100 [facility] Comment on above: Performed By: #### L [id number] #### [facility] ([facility]) [address] [place] [address] Potassium [Moles/Vol] 3.1 mmol/L Low 3.5-5.1 [facility] Comment on above: Performed By: #### L [id number] #### [facility] ([facility]) [address] [place] [address] Sodium [Moles/Vol] 130 mmol/L Low 136-145 [facility] Comment on above: Performed By: #### L [id number] #### [facility] ([facility]) [address] [place] [address] Urea nitrogen [Mass/Vol] 13 mg/dL Normal 7-25 [facility] Comment on above: Performed By: #### L [id number] #### [facility] ([facility]) [address] [place] [address] UREA NITROGEN/CREATININE (MASS RATIO) IN SER/PLAS 11.0 Normal [facility] Comment on above: Performed By: #### L [id number] #### [facility] ([facility]) [address] [place] [address] CBCon 04-22-2023 Erythrocyte distribution width (RBC) [Ratio] 16.8 % High 11.5-15.0 [facility] Comment on above: Performed By: #### L [id number] #### [facility] ([facility]) [address] [place] [address] ERYTHROCYTE MEAN CORPUSCULAR HEMOGLOBIN CONCENTRATION (G/DL) BY AUTOMATED 33.3 g/dL Normal 32.0-35.0 [facility] Comment on above: Performed By: #### L [id number] #### [facility] ([facility]) [address] [place] [address] Hematocrit (Bld) [Volume fraction] 37.5 % Low 39.0-55.0 [facility] Comment on above: Performed By: #### L [id number] #### [facility] ([facility]) [address] [place] [address] Hemoglobin (Bld) [Mass/Vol] 12.5 g/dL Low 13.0-17.0 [facility] Comment on above: Performed By: #### L [id number] #### [facility] ([facility]) [address] [place] [address] MCH (RBC) [Entitic mass] 32.7 pg Normal 27.0-33.0 [facility] Comment on above: Performed By: #### L [id number] #### [facility] ([facility]) [address] [place] [address] MCV (RBC) [Entitic vol] 98.2 fL High 82.0-98.0 [facility] Comment on above: Performed By: #### L [id number] #### [facility] ([facility]) [address] [place] [address] PLATELETS (10*3/UL) IN BLOOD AUTOMATED COUNT 188 10*3/uL Normal 150-400 [facility] Comment on above: Performed By: #### L [id number] #### [facility] ([facility]) [address] [place] [address] RBC (Bld) [#/Vol] 3.82 10*6/uL Low 4.20-5.70 [facility] Comment on above: Performed By: #### L [id number] #### [facility] ([facility]) [address] [place] [address] WBC (Bld) [#/Vol] 8.42 10*3/uL Normal 4.00-10.60 [facility] Comment on above: Performed By: #### L [id number] #### [facility] ([facility]) [address] [place] [address] CORTISOLon 04-22-2023 CORTISOL (UG/DL) IN SER/PLAS 9.8 ug/dL High 0-9 [facility] Comment on above: Order Comment: 60 mi n draw Performed By: #### L [id number] #### [facility] ([facility]) [address] [place] [address] CORTISOL (UG/DL) IN SER/PLAS 8.3 ug/dL Normal 0-9 [facility] Comment on above: Order Comment: Obtai n 30min after cosyntropin injection. Performed By: #### L [id number] #### [facility] ([facility]) [address] [place] [address] CORTISOL (UG/DL) IN SER/PLAS 1.8 ug/dL Low 6-23 [facility] Comment on above: Performed By: #### L [id number] #### [facility] ([facility]) [address] [place] [address] MAGNESIUMon 04-22-2023 Magnesium [Mass/Vol] 1.7 mg/dL Low 1.9-2.7 [facility] Comment on above: Performed By: #### L [id number] #### [facility] ([facility]) [address] [place] [address] NURSNOTEon 04-22-2023 NURSNOTE Cortisol lab draw to be collected at 1305; pt difficult draw. X 2 attempts failed in right hand and left upper forearm. Successful draw at 1320 in right upper arm. Specimen sent to lab. Pt tolerated procedure without difficulty. Call light at patient's side and pt denies further needs at this time. Normal [facility] 30on 04-21-2023 30 Problem: Pain - [...] for the shift include pain control/safety Normal [facility] BASIC METABOLIC PANELon 10-0 Anion gap [Moles/Vol] 13 mmol/L Normal - [facility] Comment on above: Performed By: #### L [id number] #### [facility] ([facility]) [address] [place] [address] Calcium [Mass/Vol] 9.0 mg/dL Normal 8.6-10.3 [facility] Comment on above: Performed By: #### L [id number] #### [facility] ([facility]) [address] [place] [address] Chloride [Moles/Vol] 102 mmol/L Normal 98-107 [facility] Comment on above: Performed By: #### L [id number] #### [facility] ([facility]) [address] [place] [address] CO2 [Moles/Vol] 18 mmol/L Low - [facility] Comment on above: Performed By: #### L [id number] #### [facility] ([facility]) [address] [place] [address] Creatinine [Mass/Vol] 1.18 mg/dL Normal 0.70-1.30 [facility] Comment on above: Performed By: #### L [id number] #### [facility] ([facility]) [address] [place] [address] GLOMERULAR FILTRATION RATE ML/MIN/1.73 SQ M.PREDICTED 71.5 mL/min/1.73m*2 Normal >60.0 [facility] Comment on above: Result Comment: [facility]???s estimated glomerular filtration rate (eGFR) will [...] individuals. Performed By: #### L [id number] #### [facility] ([facility]) [address] [place] [address] Glucose [Mass/Vol] 88 mg/dL Normal 70-100 [facility] Comment on above: Performed By: #### L [id number] #### [facility] ([facility]) [address] [place] [address] Potassium [Moles/Vol] 3.7 mmol/L Normal 3.5-5.1 [facility] Comment on above: Performed By: #### L [id number] #### [facility] ([facility]) [address] [place] [address] Sodium [Moles/Vol] 129 mmol/L Low 136-145 [facility] Comment on above: Performed By: #### L [id number] #### [facility] ([facility]) [address] [place] [address] Urea nitrogen [Mass/Vol] 12 mg/dL Normal 7-25 [facility] Comment on above: Performed By: #### L [id number] #### [facility] ([facility]) [address] [place] [address] UREA NITROGEN/CREATININE (MASS RATIO) IN SER/PLAS 10.2 Normal [facility] Comment on above: Performed By: #### L [id number] #### [facility] ([facility]) [address] [place] [address] CBCon 04-21-2023 Erythrocyte distribution width (RBC) [Ratio] 16.6 % High 11.5-15.0 [facility] Comment on above: Performed By: #### L [id number] #### [facility] ([facility]) [address] [place] [address] ERYTHROCYTE MEAN CORPUSCULAR HEMOGLOBIN CONCENTRATION (G/DL) BY AUTOMATED 34.5 g/dL Normal 32.0-35.0 [facility] Comment on above: Performed By: #### L [id number] #### [facility] ([facility]) [address] [place] [address] Hematocrit (Bld) [Volume fraction] 39.7 % Normal 39.0-55.0 [facility] Comment on above: Performed By: #### L [id number] #### [facility] ([facility]) [address] [place] [address] Hemoglobin (Bld) [Mass/Vol] 13.7 g/dL Normal 13.0-17.0 [facility] Comment on above: Performed By: #### L [id number] #### [facility] ([facility]) [address] [place] [address] MCH (RBC) [Entitic mass] 33.4 pg High 27.0-33.0 [facility] Comment on above: Performed By: #### L [id number] #### [facility] ([facility]) [address] [place] [address] MCV (RBC) [Entitic vol] 96.8 fL Normal 82.0-98.0 [facility] Comment on above: Performed By: #### L [id number] #### [facility] ([facility]) [address] [place] [address] PLATELETS (10*3/UL) IN BLOOD AUTOMATED COUNT 179 10*3/uL Normal 150-400 [facility] Comment on above: Performed By: #### L [id number] #### [facility] ([facility]) [address] [place] [address] RBC (Bld) [#/Vol] 4.10 10*6/uL Low 4.20-5.70 [facility] Comment on above: Performed By: #### L [id number] #### [facility] ([facility]) [address] [place] [address] WBC (Bld) [#/Vol] 8.95 10*3/uL Normal 4.00-10.60 [facility] Comment on above: Performed By: #### L [id number] #### [facility] ([facility]) [address] [place] [address] CORTISOLon 04-21-2023 CORTISOL (UG/DL) IN SER/PLAS 1.8 ug/dL Low 6-23 [facility] Comment on above: Performed By: #### L [id number] #### [facility] ([facility]) [address] [place] [address] CREATININE, URINE, RANDOMon 04-21-2023 Creatinine (U) [Mass/Vol] 94.0 mg/dL Normal 26-299 [facility] [facility] Comment on above: Performed By: #### L [id number] #### [facility] ([facility]) [address] [place] [address] MAGNESIUMon 04-21-2023 Magnesium [Mass/Vol] 1.8 mg/dL Low 1.9-2.7 [facility] Comment on above: Performed By: #### L [id number] #### [facility] ([facility]) [address] [place] [address] NURSNOTEon 04-21-[address] Maeve baca of TSH 188.4, sodium 129, and creatinine 1.33. She stated sodium and creatinine are improving and also pt will need IV synthroid replacement and she will leave it to primary to replace but told verse writer to still give oral synthroid in AM as scheduled. Normal [facility] SODIUM, URINE, RANDOMon 10-0 Sodium (U) [Moles/Vol] 33 mmol/L Normal [facility] Comment on above: Performed By: #### L [id number] #### [facility] ([facility]) [address] [place] [address] T3, FREEon 04-21-2023 TRIIODOTHYRONINE (T3) FREE (PG/ML) IN SER/PLAS 1.9 pg/mL Low 2.5-3.9 [facility] Comment on above: Performed By: #### L [id number] #### [facility] ([facility]) [address] [place] [address] URINALYSISon 04-21-2023 BILIRUBIN, TOTAL PRESENCE IN URINE Negative Normal Negative [facility] Comment on above: Order Comment: Micro scopics not performed on urines with negative chemical reactions unless requested on original order. Performed By: #### L [id number] #### [facility] ([facility]) [address] [place] [address] Clarity (U) Clear Normal Clear [facility] Comment on above: Order Comment: Micro scopics not performed on urines with negative chemical reactions unless requested on original order. Performed By: #### L [id number] #### [facility] ([facility]) [address] [place] [address] Color (U) Yellow Normal Yellow [facility] Comment on above: Order Comment: Micro scopics not performed on urines with negative chemical reactions unless requested on original order. Performed By: #### L [id number] #### [facility] ([facility]) [address] [place] [address] Glucose (U) [Mass/Vol] Negative Normal Negative [facility] Comment on above: Order Comment: Micro scopics not performed on urines with negative chemical reactions unless requested on original order. Performed By: #### L [id number] #### [facility] ([facility]) [address] [place] [address] HEMOGLOBIN PRESENCE IN URINE Negative Normal Negative [facility] Comment on above: Order Comment: Micro scopics not performed on urines with negative chemical reactions unless requested on original order. Performed By: #### L [id number] #### [facility] ([facility]) [address] [place] [address] Ketones Ql (U) Trace Abnormal Negative [facility] Comment on above: Order Comment: Micro scopics not performed on urines with negative chemical reactions unless requested on original order. Performed By: #### L [id number] #### [facility] ([facility]) [address] [place] [address] LEUKOCYTE ESTERASE PRESENCE IN URINE BY TEST STRIP Negative Normal Negative [facility] Comment on above: Order Comment: Micro scopics not performed on urines with negative chemical reactions unless requested on original order. Performed By: #### L [id number] #### [facility] ([facility]) [address] [place] [address] NITRITE PRESENCE IN URINE Negative Normal Negative [facility] Comment on above: Order Comment: Micro scopics not performed on urines with negative chemical reactions unless requested on original order. Performed By: #### L [id number] #### [facility] ([facility]) [address] [place] [address] pH (U) 5.0 [pH] Normal 5.0-8.0 [facility] Comment on above: Order Comment: Micro scopics not performed on urines with negative chemical reactions unless requested on original order. Performed By: #### L [id number] #### [facility] ([facility]) [address] [place] [address] Protein (U) [Mass/Vol] Negative Normal Negative [facility] Comment on above: Order Comment: Micro scopics not performed on urines with negative chemical reactions unless requested on original order. Performed By: #### L [id number] #### [facility] ([facility]) [address] [place] [address] Specific gravity (U) [Rel density] 1.011 Low 1.015-1.020 [facility] Comment on above: Order Comment: Micro scopics not performed on urines with negative chemical reactions unless requested on original order. Performed By: #### L [id number] #### [facility] ([facility]) [address] [place] [address] B-TYPE NATRIURETIC PEPTIDEon 04-20-2023 Natriuretic peptide B (Bld) [Mass/Vol] 17 pg/mL Normal 0-100 [facility] Comment on above: Performed By: #### L [id number] #### [facility] ([facility]) [address] [place] [address] CBC WITH AUTO DIFFERENTIALon 04-20-2023 Basophils (Bld) [#/Vol] 0.08 10*3/uL Normal 0.00-0.20 [facility] Comment on above: Performed By: #### L [id number] #### [facility] ([facility]) [address] [place] [address] Basophils/100 WBC (Bld) 0.8 % Normal 0.0-1.0 [facility] Comment on above: Performed By: #### L [id number] #### [facility] ([facility]) [address] [place] [address] Eosinophils (Bld) [#/Vol] 0.11 10*3/uL Normal 0.00-0.50 [facility] Comment on above: Performed By: #### L [id number] #### [facility] ([facility]) [address] [place] [address] Eosinophils/100 WBC (Bld) 1.2 % Normal 0.0-6.0 [facility] Comment on above: Performed By: #### L [id number] #### [facility] ([facility]) [address] [place] [address] Erythrocyte distribution width (RBC) [Ratio] 16.5 % High 11.5-15.0 [facility] Comment on above: Performed By: #### L [id number] #### [facility] ([facility]) [address] [place] [address] ERYTHROCYTE MEAN CORPUSCULAR HEMOGLOBIN CONCENTRATION (G/DL) BY AUTOMATED 33.5 g/dL Normal 32.0-35.0 [facility] Comment on above: Performed By: #### L [id number] #### [facility] ([facility]) [address] [place] [address] Hematocrit (Bld) [Volume fraction] 42.7 % Normal 39.0-55.0 [facility] Comment on above: Performed By: #### L [id number] #### [facility] ([facility]) [address] [place] [address] Hemoglobin (Bld) [Mass/Vol] 14.3 g/dL Normal 13.0-17.0 [facility] Comment on above: Performed By: #### L [id number] #### [facility] ([facility]) [address] [place] [address] Immature granulocytes (Bld) [#/Vol] 0.11 10*3/uL Normal 0.00-0.20 [facility] Comment on above: Performed By: #### L [id number] #### [facility] ([facility]) [address] [place] [address] Immature granulocytes/100 WBC (Bld) 1.2 % High 0.0-1.0 [facility] Comment on above: Performed By: #### L [id number] #### [facility] ([facility]) [address] [place] [address] Lymphocytes (Bld) [#/Vol] 3.02 10*3/uL Normal 1.20-4.00 [facility] Comment on above: Performed By: #### L [id number] #### [facility] ([facility]) [address] [place] [address] Lymphocytes/100 WBC (Bld) 32.0 % Normal 20.0-45.0 [facility] Comment on above: Performed By: #### L [id number] #### [facility] ([facility]) [address] [place] [address] MCH (RBC) [Entitic mass] 32.5 pg Normal 27.0-33.0 [facility] Comment on above: Performed By: #### L [id number] #### [facility] ([facility]) [address] [place] [address] MCV (RBC) [Entitic vol] 97.0 fL Normal 82.0-98.0 [facility] Comment on above: Performed By: #### L [id number] #### [facility] ([facility]) [address] [place] [address] Monocytes (Bld) [#/Vol] 0.31 10*3/uL Normal 0.10-1.00 [facility] Comment on above: Performed By: #### L [id number] #### [facility] ([facility]) [address] [place] [address] Monocytes/100 WBC (Bld) 3.3 % Low 5.0-12.0 [facility] Comment on above: Performed By: #### L [id number] #### [facility] ([facility]) [address] [place] [address] Neutrophils (Bld) [#/Vol] 5.81 10*3/uL Normal 1.60-7.60 [facility] Comment on above: Performed By: #### L [id number] #### [facility] ([facility]) [address] [place] [address] Neutrophils/100 WBC (Bld) 61.5 % Normal 40.0-72.0 [facility] Comment on above: Performed By: #### L [id number] #### [facility] ([facility]) [address] [place] [address] NRBC (PER 100 WBCS) BY AUTOMATED COUNT 0.0 % Normal 0 [facility] Comment on above: Performed By: #### L [id number] #### [facility] ([facility]) [address] [place] [address] PLATELETS (10*3/UL) IN BLOOD AUTOMATED COUNT 212 10*3/uL Normal 150-400 [facility] Comment on above: Performed By: #### L [id number] #### [facility] ([facility]) [address] [place] [address] RBC (Bld) [#/Vol] 4.40 10*6/uL Normal 4.20-5.70 [facility] Comment on above: Performed By: #### L [id number] #### [facility] ([facility]) [address] [place] [address] WBC (Bld) [#/Vol] 9.44 10*3/uL Normal 4.00-10.60 [facility] Comment on above: Performed By: #### L [id number] #### [facility] ([facility]) [address] [place] [address] COMPREHENSIVE METABOLIC PANE Dawit 04-20-2023 Albumin [Mass/Vol] 5.1 g/dL Normal 3.5-5.7 [facility] Comment on above: Performed By: #### L [id number] #### [facility] ([facility]) [address] [place] [address] ALP [Catalytic activity/Vol] 48 U/L Normal 34-104 [facility] Comment on above: Performed By: #### L [id number] #### [facility] ([facility]) [address] [place] [address] ALT [Catalytic activity/Vol] 8 U/L Normal 7-52 [facility] Comment on above: Performed By: #### L [id number] #### [facility] ([facility]) [address] [place] [address] Anion gap [Moles/Vol] 18 mmol/L Normal 7-20 [facility] Comment on above: Performed By: #### L [id number] #### [facility] ([facility]) [address] [place] [address] AST [Catalytic activity/Vol] 12 U/L Low 13-39 [facility] Comment on above: Performed By: #### L [id number] #### [facility] ([facility]) [address] [place] [address] Bilirubin [Mass/Vol] 0.6 mg/dL Normal 0.3-1.0 [facility] Comment on above: Performed By: #### L [id number] #### [facility] ([facility]) [address] [place] [address] Calcium [Mass/Vol] 9.9 mg/dL Normal 8.6-10.3 [facility] Comment on above: Performed By: #### L [id number] #### [facility] ([facility]) [address] [place] [address] Chloride [Moles/Vol] 96 mmol/L Low 98-107 [facility] Comment on above: Performed By: #### L [id number] #### [facility] ([facility]) [address] [place] [address] CO2 [Moles/Vol] 19 mmol/L Low 21-31 [facility] Comment on above: Performed By: #### L [id number] #### [facility] ([facility]) [address] [place] [address] Creatinine [Mass/Vol] 1.33 mg/dL High 0.70-1.30 [facility] Comment on above: Performed By: #### L [id number] #### [facility] ([facility]) [address] [place] [address] GLOMERULAR FILTRATION RATE ML/MIN/1.73 SQ M.PREDICTED 62.0 mL/min/1.73m*2 Normal >60.0 [facility] Comment on above: Result Comment: [facility]???s estimated glomerular filtration rate (eGFR) will [...] individuals. Performed By: #### L [id number] #### [facility] ([facility]) [address] [place] [address] Glucose [Mass/Vol] 75 mg/dL Normal 70-100 [facility] Comment on above: Performed By: #### L [id number] #### [facility] ([facility]) [address] [place] [address] Potassium [Moles/Vol] 3.6 mmol/L Normal 3.5-5.1 [facility] Comment on above: Performed By: #### L [id number] #### [facility] ([facility]) [address] [place] [address] Protein [Mass/Vol] 8.3 g/dL Normal 6.0-8.3 [facility] Comment on above: Performed By: #### L [id number] #### [facility] ([facility]) [address] [place] [address] Sodium [Moles/Vol] 129 mmol/L Low 136-145 [facility] Comment on above: Performed By: #### L [id number] #### [facility] ([facility]) [address] [place] [address] Urea nitrogen [Mass/Vol] 10 mg/dL Normal 7-25 [facility] Comment on above: Performed By: #### L [id number] #### [facility] ([facility]) [address] [place] [address] UREA NITROGEN/CREATININE (MASS RATIO) IN SER/PLAS 7.5 Normal [facility] Comment on above: Performed By: #### L [id number] #### [facility] ([facility]) [address] [place] [address] CONSULTon 04-20-2023 CONSULT -- Attestation signed by [...] came to hospital as a transfer from [facility] due to concern for mobitz II [...] History No family history on file. Allergies Selma and Penicillins Medications (Not in a hospital [...] Value Ventricular Rate 59 Atrial Rate 59 [place] Interval 132 QRS DURATION 86 QT Interval 430 QTC CALCULATION(BAZETT) 425 P [place] 43 R-[place] -12 T Wave [place] 73 Impression Sinus bradycardia Low voltage QRS [...] will continue to follow. Mireille Gilbert MD Offset Machine Operator PGY-4 [facility] Pager # [phone] Normal [facility] MAGNESIUMon 04-20-2023 Magnesium [Mass/Vol] 1.9 mg/dL Normal 1.9-2.7 [facility] Comment on above: Performed By: #### L [id number] #### [facility] ([facility]) [address] [place] [address] NURSNOTEon 04-20-2023 NURSNOTE Report called to BRISEYDA Noble Normal [facility] Orders Onlyon 04-20-2023 Orders Only [id number] Rehan Poole 1965 M Date Provider Department Center 04/20/2023 [facility]ARD [place] [facility] No family history on file Normal [facility] T4, FREEon 04-20-2023 THYROXINE (T4) FREE (NG/DL) IN SER/PLAS <0.25 Low 0.71-1.85 [facility] Comment on above: Performed By: #### L [id number] #### [facility] ([facility]) [address] [place] [address] TROPONIN Ion 04-20-2023 Troponin I.cardiac [Mass/Vol] 0.00 ng/mL Normal 0.00-0.04 [facility] Comment on above: Performed By: #### L [id number] #### [facility] ([facility]) [address] [place] [address] TSH3 REFLEX TO FT4on 023 THYROTROPIN (MIU/L) IN SER/PLAS BY DETECTION LIMIT <= 0.05 MIU/L 188.64 mIU/L Critically high 0.34-5.60 [facility] Comment on above: Performed By: #### L [id number] #### [facility] ([facility]) [address] [place] [address] CBC AUTO DIFFon 11-28-2022 BASO # 0.0 103/ul Normal 0.0-0.[address] [facility] Comment on above: Performed By: #### B TECHNICAL SUPPORT AGENT, T7, CMP, TSH #### [facility] [address] [place] [address] Dr. Get Whitten Basophils/100 WBC (Bld) 0.4 % Normal 0.2-2.[address] [facility] Comment on above: Performed By: #### B TECHNICAL SUPPORT AGENT, T7, CMP, TSH #### [facility] [address] [place] [address] Dr. Get Whitten EO # 0.1 103/ul Normal 0.0-0.[address] [facility] Comment on above: Performed By: #### B TECHNICAL SUPPORT AGENT, T7, CMP, TSH #### [facility] [address] [place] [address] Dr. Get Whitten Eosinophils/100 WBC (Bld) 0.5 % Critically low 0.9-7.[address] [facility] Comment on above: Performed By: #### B TECHNICAL SUPPORT AGENT, T7, CMP, TSH #### [facility] [address] [place] [address] Dr. Get Whitten Erythrocyte distribution width (RBC) [Ratio] 18.6 % Critically high 11.0-15.[address] [facility] Comment on above: Performed By: #### B TECHNICAL SUPPORT AGENT, T7, CMP, TSH #### [facility] [address] [place] [address] Dr. Get Whitten Hematocrit (Bld) [Volume fraction] 33.3 % Critically low 42.0-54.[address] [facility] Comment on above: Performed By: #### B TECHNICAL SUPPORT AGENT, T7, CMP, TSH #### [facility] [address] [place] [address] Dr. Get Whitten Hemoglobin (Bld) [Mass/Vol] 11.1 g/dL Critically low 14.0-18.0 [facility] Comment on above: Performed By: #### B TECHNICAL SUPPORT AGENT, T7, CMP, TSH #### [facility] [address] [place] [address] Dr. Get Whitten IG # 0.30 10e3/ul Critically high 0.00-0.03 [facility] Comment on above: Performed By: #### B TECHNICAL SUPPORT AGENT, T7, CMP, TSH #### [facility] [address] [place] [address] Dr. Get Whitten IG % 3.3 % Critically high 0.0-0.5 [facility] Comment on above: Performed By: #### B TECHNICAL SUPPORT AGENT, T7, CMP, TSH #### [facility] [address] [place] [address] Dr. Get Whitten LYMPH # 3.0 103/ul Normal 1.2-3.8 [facility] Comment on above: Performed By: #### B TECHNICAL SUPPORT AGENT, T7, CMP, TSH #### [facility] [address] [place] [address] Dr. Get Whitten Lymphocytes/100 WBC (Bld) 32.7 % Normal 20.5-60.0 [facility] Comment on above: Performed By: #### B TECHNICAL SUPPORT AGENT, T7, CMP, TSH #### [facility] [address] [place] [address] Dr. Get Whitten MANUAL DIFF REQ NO Normal [facility] Comment on above: Performed By: #### B TECHNICAL SUPPORT AGENT, T7, CMP, TSH #### [facility] [address] [place] [address] Dr. Get Whitten MCH (RBC) [Entitic mass] 34.8 pg Critically high 25.9-34.0 [facility] Comment on above: Performed By: #### B TECHNICAL SUPPORT AGENT, T7, CMP, TSH #### [facility] [address] [place] [address] Dr. Get Whitten MCHC (RBC) [Mass/Vol] 33.3 g/dL Normal 29.9-35.2 [facility] Comment on above: Performed By: #### B TECHNICAL SUPPORT AGENT, T7, CMP, TSH #### [facility] [address] [place] [address] Dr. Get Whitten MCV (RBC) [Entitic vol] 104.4 fL Critically high 80.0-94.0 [facility] Comment on above: Performed By: #### B TECHNICAL SUPPORT AGENT, T7, CMP, TSH #### [facility] [address] [place] [address] Dr. Get Whitten MONO # 0.4 103/ul Normal 0.3-0.[address] [facility] Comment on above: Performed By: #### B TECHNICAL SUPPORT AGENT, T7, CMP, TSH #### [facility] [address] [place] [address] Dr. Get Whitten Monocytes/100 WBC (Bld) 4.2 % Normal 1.7-12.0 [facility] Comment on above: Performed By: #### B TECHNICAL SUPPORT AGENT, T7, CMP, TSH #### [facility] [address] [place] [address] Dr. Get Whitten NEUT # 5.4 103/ul Normal 1.4-6.5 [facility] Comment on above: Performed By: #### B TECHNICAL SUPPORT AGENT, T7, CMP, TSH #### [facility] [address] [place] [address] Dr. Get Whitten Neutrophils/100 WBC (Bld) 58.9 % Normal 43.0-75.0 [facility] Comment on above: Performed By: #### B TECHNICAL SUPPORT AGENT, T7, CMP, TSH #### [facility] [address] [place] [address] Dr. Get Whitten Platelet mean volume (Bld) [Entitic vol] 9.5 fL Normal 9.5-13.[address] [facility] Comment on above: Performed By: #### B TECHNICAL SUPPORT AGENT, T7, CMP, TSH #### [facility] [address] [place] [address] Dr. Get Whitten PLT 187 103/ul Normal 150-[address] [facility] Comment on above: Performed By: #### B TECHNICAL SUPPORT AGENT, T7, CMP, TSH #### [facility] [address] [place] [address] Dr. Get Whitten RBC 3.19 106/ul Critically low 4.70-6.10 [facility] Comment on above: Performed By: #### B TECHNICAL SUPPORT AGENT, T7, CMP, TSH #### [facility] [address] [place] [address] Dr. Get Whitten WBC 9.1 103/ul Normal 4.0-11.0 [facility] Comment on above: Performed By: #### B TECHNICAL SUPPORT AGENT, T7, CMP, TSH #### [facility] [address] [place] [address] Dr. Get Whitten PROF 14(COMP METB)on 023 Albumin [Mass/Vol] 3.9 g/dL Normal 3.4-5.0 [facility] Comment on above: Performed By: #### C MP #### [facility] [address] [place] [address] Dr. Get Whitten Albumin/Globulin [Mass ratio] 1.1 {ratio} Normal [facility] Comment on above: Performed By: #### C MP #### [facility] [address] [place] [address] Dr. Get Whitten ALP [Catalytic activity/Vol] 34 U/L Critically low 46-116 [facility] Comment on above: Performed By: #### C MP #### [facility] [address] [place] [address] Dr. Get Whitten ALT [Catalytic activity/Vol] 21 U/L Normal 16-[address] [facility] Comment on above: Performed By: #### C MP #### [facility] [address] [place] [address] Dr. Get Whitten Anion gap [Moles/Vol] 17.7 mmol/L Normal [facility] Comment on above: Performed By: #### C MP #### [facility] [address] [place] [address] Dr. Get Whitten AST [Catalytic activity/Vol] 15 U/L Normal 15-37 [facility] Comment on above: Performed By: #### C MP #### [facility] [address] [place] [address] Dr. Get Whitten Bilirubin [Mass/Vol] 0.3 mg/dL Normal 0.2-1.0 [facility] Comment on above: Performed By: #### C MP #### [facility] [address] [place] [address] [address] Get Whitten Calcium [Mass/Vol] 8.7 mg/dL Normal 8.5-10.1 [facility] Comment on above: Performed By: #### C MP #### [facility] [address] [address] [address] Get Whitten Chloride [Moles/Vol] 99 mmol/L Normal 98-107 [facility] Comment on above: Performed By: #### C MP #### [facility] [address] [place] [address] [address] Get Whitten CO2 [Moles/Vol] 21.8 mmol/L Normal 21.0-32.0 [facility] Comment on above: Performed By: #### C MP #### [facility] [address] [address] [address] Get Whitten Creatinine [Mass/Vol] 1.69 mg/dL Critically high 0.70-1.30 [facility] Comment on above: Performed By: #### C MP #### [facility] [address] [place] [address] Dr. Get Whitten EGFR-AF PALAUAN 51 mL/min/1.73m2 Critically low >=60 [facility] Comment on above: Performed By: #### C MP #### [facility] [address] [place] [address] [address] Get Whitten EGFR-NON AF PALAUAN 42 mL/min/1.73m2 Critically low >=60 [facility] Comment on above: Performed By: #### C MP #### [facility] [address] [address] [address] Get Whitten Globulin (S) [Mass/Vol] 3.6 g/dL Normal [facility] Comment on above: Performed By: #### C MP #### [facility] [address] [address] [address] Get Whitten Glucose [Mass/Vol] 96 mg/dL Normal 74-106 [facility] Comment on above: Performed By: #### C MP #### [facility] [address] [address] [address] Get Whitten Potassium [Moles/Vol] 3.5 mmol/L Normal 3.5-5.1 [facility] Comment on above: Performed By: #### C MP #### [facility] [address] [address] [address] Get Whitten Protein [Mass/Vol] 7.5 g/dL Normal 6.4-8.2 [facility] Comment on above: Performed By: #### C MP #### [facility] [address] [address] [address] Get Whitten Sodium [Moles/Vol] 135 mmol/L Critically low 136-145 [facility] Comment on above: Performed By: #### C MP #### [facility] [address] [address] [address] Get Whitten Urea nitrogen [Mass/Vol] 15.0 mg/dL Normal 7.0-18.0 [facility] Comment on above: Performed By: #### C MP #### [facility] [address] [address] [address] Get Whitten Urea nitrogen/Creatinine [Mass ratio] 8.9 mg/mg Normal [facility] Comment on above: Performed By: #### C MP #### [facility] [address] [address] [address] Get Whitten T3, TOTAL (TRIIODOTHYRONINE) on 11-28-2022 T3, TOTAL <20 Critically low 71-180 [facility] Comment on above: Performed By: #### C VDTBH #### [facility] [address] [address] [address] Get Whitten AMMONIAon 11-27-2022 Ammonia (P) [Mass/Vol] ug/dL Critically low 11-32 [facility] Comment on above: Performed By: #### C MP #### [facility] [address] [address] [address] Get Whitten BNPon 11-27-2022 Natriuretic peptide B (Bld) [Mass/Vol] 50.0 pg/mL Normal <=900.[address] [facility] Comment on above: Performed By: #### B TECHNICAL SUPPORT AGENT, T7, CMP, TSH #### [facility] [address] [place] [address] Dr. Get Whitten CARDIAC ANA ADMITon 023 CK [Catalytic activity/Vol] 173 U/L Normal 39-[address] [facility] Comment on above: Performed By: #### B TECHNICAL SUPPORT AGENT, T7, CMP, TSH #### [facility] [address] [place] [address] Dr. Get Whitten CK.MB [Mass/Vol] 1.64 ng/mL Normal <=3.60 [facility] Comment on above: Performed By: #### B TECHNICAL SUPPORT AGENT, T7, CMP, TSH #### [facility] [address] [place] [address] Dr. Get Whitten HSTROP 4.3 pg/mL Normal 4.0-76.[address] [facility] Comment on above: Result Comment: CUT- OFF POINTS HAVE BEEN ESTABLISHED BASED ON THE FOURTH UNIVERSAL DEFINITIONS OF MYOCARDIAL INFARCTION. THE UPPER REFERENCE LIMIT (URL) OF TROPONIN, DEFINED THE 99TH PERCENTILE OF cTnI DISTRIBUTION IN A REFERENCE POPULATION, HAS BEEN CONFIRMED THE DECISION THRESHOLD FOR MT DIAGNOSIS. Performed By: #### B TECHNICAL SUPPORT AGENT, T7, CMP, TSH #### [facility] [address] [place] [address] Dr. Get Whittne RAFA 72 ng/mL Normal 16-[address] [facility] Comment on above: Performed By: #### B TECHNICAL SUPPORT AGENT, T7, CMP, TSH #### [facility] [address] [place] [address] Dr. Get Whitten CBC AUTO DIFFon 11-27-2022 BASO # 0.1 103/ul Normal 0.0-0.[address] [facility] Comment on above: Performed By: #### C VDTBH #### [facility] [address] [place] [address] Dr. Get Whitten Basophils/100 WBC (Bld) 0.6 % Normal 0.2-2.[address] [facility] Comment on above: Performed By: #### C VDTBH #### [facility] [address] [place] [address] Dr. Get Whitten EO # 0.0 103/ul Normal 0.0-0.7 [facility] Comment on above: Performed By: #### C VDTBH #### [facility] [address] [place] [address] Dr. Get Whitten Eosinophils/100 WBC (Bld) 0.4 % Critically low 0.9-7.0 [facility] Comment on above: Performed By: #### C VDTBH #### [facility] [address] [place] [address] Dr. Get Whitten Erythrocyte distribution width (RBC) [Ratio] 18.6 % Critically high 11.0-15.0 [facility] Comment on above: Performed By: #### C VDTBH #### [facility] [address] [place] [address] Dr. Get Whitten Hematocrit (Bld) [Volume fraction] 35.4 % Critically low 42.0-54.0 [facility] Comment on above: Performed By: #### C VDTBH #### [facility] [address] [place] [address] Dr. Get Whitten Hemoglobin (Bld) [Mass/Vol] 11.9 g/dL Critically low 14.0-18.0 [facility] Comment on above: Performed By: #### C VDTBH #### [facility] [address] [place] [address] Dr. Get Whitten IG # 0.28 10e3/ul Critically high 0.00-0.03 [facility] Comment on above: Performed By: #### C VDTBH #### [facility] [address] [place] [address] Dr. Get Whitten IG % 3.5 % Critically high 0.0-0.5 [facility] Comment on above: Performed By: #### C VDTBH #### [facility] [address] [place] [address] Dr. Get Whitten LYMPH # 3.3 103/ul Normal 1.2-3.8 [facility] Comment on above: Performed By: #### C VDTBH #### [facility] [address] [place] [address] Dr. Get Whitten Lymphocytes/100 WBC (Bld) 41.6 % Normal 20.5-60.0 [facility] Comment on above: Performed By: #### C VDTBH #### [facility] [address] [place] [address] Dr. Get Whitten MANUAL DIFF REQ NO Normal [facility] Comment on above: Performed By: #### C VDTBH #### [facility] [address] [place] [address] Dr. Get Whitten MCH (RBC) [Entitic mass] 35.1 pg Critically high 25.9-34.0 [facility] Comment on above: Performed By: #### C VDTBH #### [facility] [address] [place] [address] Dr. Get Whitten MCHC (RBC) [Mass/Vol] 33.6 g/dL Normal 29.9-35.2 [facility] Comment on above: Performed By: #### C VDTBH #### [facility] [address] [place] [address] Dr. Get Whitten MCV (RBC) [Entitic vol] 104.4 fL Critically high 80.0-94.0 [facility] Comment on above: Performed By: #### C VDTBH #### [facility] [address] [place] [address] Dr. Get Whitten MONO # 0.4 103/ul Normal 0.3-0.8 [facility] Comment on above: Performed By: #### C VDTBH #### [facility] [address] [place] [address] Dr. Get Whitten Monocytes/100 WBC (Bld) 5.0 % Normal 1.7-12.0 [facility] Comment on above: Performed By: #### C VDTBH #### [facility] [address] [place] [address] Dr. Get Whitten NEUT # 3.9 103/ul Normal 1.4-6.5 [facility] Comment on above: Performed By: #### C VDTBH #### [facility] [address] [place] [address] Dr. Get Whitten Neutrophils/100 WBC (Bld) 48.9 % Normal 43.0-75.0 [facility] Comment on above: Performed By: #### C VDTBH #### [facility] [address] [place] [address] Dr. Get Whitten Platelet mean volume (Bld) [Entitic vol] 9.5 fL Normal 9.5-13.5 [facility] Comment on above: Performed By: #### C VDTBH #### [facility] [address] [place] [address] Dr. Get Whitten PLT 182 103/ul Normal 150-450 [facility] Comment on above: Performed By: #### C VDTBH #### [facility] [address] [place] [address] Dr. Get Whitten RBC 3.39 106/ul Critically low 4.70-6.10 [facility] Comment on above: Performed By: #### C VDTBH #### [facility] [address] [place] [address] Dr. Get Whitten WBC 8.0 103/ul Normal 4.0-11.0 [facility] Comment on above: Performed By: #### C VDTBH #### [facility] [address] [place] [address] CSPINE WO CONon [...] SHEN SOSA Date: 2022-11-27 11:[address] [facility] CT STROKE HEAD WOon 11-28-19 CT [...] SHEN SOSA Date: 2022-11-27 11:[address] [facility] Covid-19 PCR (CVDTBH)on 11-13 SARS-CoV-2 (COVID-19) RNA ASHLEE+probe Ql (Unsp spec) Not detected Normal NOT DETECTED [facility] Comment on above: Result Comment: THIS TEST IS NOT APPROVED BY THE FDA. IT HAS BEEN AUTHORIZED FOR USE UNDER AN EMERGENCY USE AUTHORIZATION. Performed By: #### C MP #### [facility] [address] [address] [address] Get Whitten ETHANOL (BLD ALC)on 11-28-19 ALC NOTE NOTE: 80 mg/dl is th e legal limit for a blood alcohol level Normal [facility] Comment on above: Performed By: #### B TECHNICAL SUPPORT AGENT, T7, CMP, TSH #### [facility] [address] [place] [address] Dr. Get Whitten Ethanol [Mass/Vol] mg/dL Normal [facility] Comment on above: Performed By: #### B TECHNICAL SUPPORT AGENT, T7, CMP, TSH #### [facility] [address] [address] [address] Get Whitten MAGNESIUMon 11-27-2022 Magnesium [Mass/Vol] 2.3 mg/dL Normal 1.8-2.4 [facility] Comment on above: Performed By: #### B TECHNICAL SUPPORT AGENT, T7, CMP, TSH #### [facility] [address] [place] [address] Dr. Get Whitten PROF 14(COMP METB)on 023 Albumin [Mass/Vol] 4.1 g/dL Normal 3.4-5.0 [facility] Comment on above: Performed By: #### B TECHNICAL SUPPORT AGENT, T7, CMP, TSH #### [facility] [address] [place] [address] Dr. Get Whitten Albumin/Globulin [Mass ratio] 1.1 {ratio} Normal [facility] Comment on above: Performed By: #### B TECHNICAL SUPPORT AGENT, T7, CMP, TSH #### [facility] [address] [place] [address] Dr. Get Whitten ALP [Catalytic activity/Vol] 36 U/L Critically low 46-[address] [facility] Comment on above: Performed By: #### B TECHNICAL SUPPORT AGENT, T7, CMP, TSH #### [facility] [address] [place] [address] Dr. Get Whitten ALT [Catalytic activity/Vol] 15 U/L Critically low 16-63 [facility] Comment on above: Performed By: #### B TECHNICAL SUPPORT AGENT, T7, CMP, TSH #### [facility] [address] [place] [address] Dr. Get Whitten Anion gap [Moles/Vol] 15.0 mmol/L Normal [facility] Comment on above: Performed By: #### B TECHNICAL SUPPORT AGENT, T7, CMP, TSH #### [facility] [address] [address] [address] Get Whitten AST [Catalytic activity/Vol] 13 U/L Critically low 15-37 [facility] Comment on above: Performed By: #### B TECHNICAL SUPPORT AGENT, T7, CMP, TSH #### [facility] [address] [address] [address] Get Whitten Bilirubin [Mass/Vol] 0.3 mg/dL Normal 0.2-1.0 [facility] Comment on above: Performed By: #### B TECHNICAL SUPPORT AGENT, T7, CMP, TSH #### [facility] [address] [place] [address] Dr. Get Whitten Calcium [Mass/Vol] 9.1 mg/dL Normal 8.5-10.1 [facility] Comment on above: Performed By: #### B TECHNICAL SUPPORT AGENT, T7, CMP, TSH #### [facility] [address] [place] [address] Dr. Get Whitten Chloride [Moles/Vol] 101 mmol/L Normal 98-107 [facility] Comment on above: Performed By: #### B TECHNICAL SUPPORT AGENT, T7, CMP, TSH #### [facility] [address] [place] [address] Dr. Get Whitten CO2 [Moles/Vol] 22.2 mmol/L Normal 21.0-32.0 [facility] Comment on above: Performed By: #### B TECHNICAL SUPPORT AGENT, T7, CMP, TSH #### [facility] [address] [place] [address] Dr. Get Whitten Creatinine [Mass/Vol] 1.84 mg/dL Critically high 0.70-1.30 [facility] Comment on above: Performed By: #### B TECHNICAL SUPPORT AGENT, T7, CMP, TSH #### [facility] [address] [place] [address] Dr. Get Whitten EGFR-AF PALAUAN 46 mL/min/1.73m2 Critically low >=60 [facility] Comment on above: Performed By: #### B TECHNICAL SUPPORT AGENT, T7, CMP, TSH #### [facility] [address] [place] [address] Dr. Get Whitten EGFR-NON AF PALAUAN 38 mL/min/1.73m2 Critically low >=60 [facility] Comment on above: Performed By: #### B TECHNICAL SUPPORT AGENT, T7, CMP, TSH #### [facility] [address] [place] [address] Dr. Get Whitten Globulin (S) [Mass/Vol] 3.6 g/dL Normal [facility] Comment on above: Performed By: #### B TECHNICAL SUPPORT AGENT, T7, CMP, TSH #### [facility] [address] [place] [address] Dr. Get Whitten Glucose [Mass/Vol] 87 mg/dL Normal 74-106 [facility] Comment on above: Performed By: #### B TECHNICAL SUPPORT AGENT, T7, CMP, TSH #### [facility] [address] [place] [address] Dr. Get Whitten Potassium [Moles/Vol] 4.2 mmol/L Normal 3.5-5.1 [facility] Comment on above: Performed By: #### B TECHNICAL SUPPORT AGENT, T7, CMP, TSH #### [facility] [address] [place] [address] Dr. Get Whitten Protein [Mass/Vol] 7.7 g/dL Normal 6.4-8.2 [facility] Comment on above: Performed By: #### B TECHNICAL SUPPORT AGENT, T7, CMP, TSH #### [facility] [address] [place] [address] Dr. Get Whitten Sodium [Moles/Vol] 134 mmol/L Critically low 136-145 [facility] Comment on above: Performed By: #### B TECHNICAL SUPPORT AGENT, T7, CMP, TSH #### [facility] [address] [place] [address] Dr. Get Whitten Urea nitrogen [Mass/Vol] 14.0 mg/dL Normal 7.0-18.0 [facility] Comment on above: Performed By: #### B TECHNICAL SUPPORT AGENT, T7, CMP, TSH #### [facility] [address] [place] [address] Dr. Get Whitten Urea nitrogen/Creatinine [Mass ratio] 7.6 mg/mg Normal [facility] Comment on above: Performed By: #### B TECHNICAL SUPPORT AGENT, T7, CMP, TSH #### [facility] [address] [place] [address] Dr. Get Whitten PROTIMEon 11-27-2022 INR Coag (PPP) [Relative time] 0.98 {INR} Normal [facility] Comment on above: Performed By: #### B TECHNICAL SUPPORT AGENT, T7, CMP, TSH #### [facility] [address] [place] [address] Dr. Get Whitten INR GUIDELINES SEE BELOW Normal [facility] Comment on above: Result Comment: JORGE RED INR: 2.0 - 3.0 CONDITIONS NOT LISTED BELOW 2.5 - 3.5 FOR PROSTHETIC HEART VALVE REPLACEMENT 2.5 - 3.5 RECURRENT THROMBOSIS Performed By: #### B TECHNICAL SUPPORT AGENT, T7, CMP, TSH #### [facility] [address] [place] [address] Dr. Get Whitten PT Coag (PPP) [Time] 10.4 s Normal 9.0-11.6 [facility] Comment on above: Performed By: #### B TECHNICAL SUPPORT AGENT, T7, CMP, TSH #### [facility] [address] [place] [address] Dr. Get Whitten PTTon 11-27-2022 aPTT Coag (Bld) [Time] 30.4 s Normal 22.3-36.2 [facility] Comment on above: Performed By: #### B TECHNICAL SUPPORT AGENT, T7, CMP, TSH #### [facility] [address] [place] [address] Dr. Get Whitten SYMPTOMATIC COVID-19 ANTIGEN on 11-27-2022 EUA Statement SEE BELOW Normal [facility] Comment on above: Result Comment: This [...] By: #### C MP, HSTROPN, BNP #### [facility] [address] [place] [address] Dr. Get Whitten SARS-CoV-2 (COVID-19) RNA ASHLEE+probe Ql (Unsp spec) Negative Normal NEGATIVE [facility] Comment on above: Performed By: #### C MP, HSTROPN, BNP #### [facility] [address] [address] [address] Get Whitten T4on 11-27-2022 T4 [Mass/Vol] 0.90 ug/dL Critically low 4.50-12.10 [facility] Comment on above: Performed By: #### B TECHNICAL SUPPORT AGENT, T7, CMP, TSH #### [facility] [address] [place] [address] Dr. Get Whitten TROPONIN, HIGH SENSITIVITYon 11-27-2022 HSTROP 4.1 pg/mL Normal 4.0-76.[address] [facility] Comment on above: Result Comment: CUT- OFF POINTS HAVE BEEN ESTABLISHED BASED ON THE FOURTH UNIVERSAL DEFINITIONS OF MYOCARDIAL INFARCTION. THE UPPER REFERENCE LIMIT (URL) OF TROPONIN, DEFINED THE 99TH PERCENTILE OF cTnI DISTRIBUTION IN A REFERENCE POPULATION, HAS BEEN CONFIRMED THE DECISION THRESHOLD FOR MT DIAGNOSIS. Performed By: #### B TECHNICAL SUPPORT AGENT, T7, CMP, TSH #### [facility] [address] [place] [address] Dr. Get Whitten TSHon 11-27-2022 TSH 134.470 uIU/mL Critically high 0.358-3.[address] [facility] Comment on above: Performed By: #### B TECHNICAL SUPPORT AGENT, T7, CMP, TSH #### [facility] [address] [place] [address] Dr. Get Whitten XR CHEST 1 Von [...] by: SHEN SOSA Date: 2022-11-27 11:19 Normal [facility] XR CSPINE MIN 4 VIEWSon 10-14 XR [...] by: SHEN SOSA Date: 2022-10-24 10:22 Normal [facility] XR LSPINE MIN 4 VIEWSon 10-14 XR [...] SHEN SOSA Date: 2022-10-24 10:[address] [facility] H PYLORI ANTIBODY IGGon H. PYLORI IGG ABS 0.07 Index Value Normal 0.00-0.79 [facility] Comment on above: Result Comment: Nega tive <0.80 Equivocal 0.80 - 0.89 Positive >0.89 Performed By: #### B TECHNICAL SUPPORT AGENT, T7, CMP, TSH #### [facility] [address] [place] [address] Dr. Get Whitten BNPon 04-15-2022 Natriuretic peptide B (Bld) [Mass/Vol] 138.0 pg/mL Normal <=900.0 [facility] Comment on above: Performed By: #### B TECHNICAL SUPPORT AGENT, T7, CMP, TSH #### [facility] [address] [place] [address] Dr. Get Whitten CBC AUTO DIFFon 04-15-2022 BASO # 0.0 103/ul Normal 0.0-0.1 [facility] Comment on above: Performed By: #### C MP, HSTROPN, BNP #### [facility] [address] [place] [address] Dr. Get Whitten Basophils/100 WBC (Bld) 0.4 % Normal 0.2-2.0 [facility] Comment on above: Performed By: #### C MP, HSTROPN, BNP #### [facility] [address] [place] [address] Dr. Get Whitten EO # 0.0 103/ul Normal 0.0-0.[address] [facility] Comment on above: Performed By: #### C MP, HSTROPN, BNP #### [facility] [address] [place] [address] Dr. Get Whitten Eosinophils/100 WBC (Bld) 0.3 % Critically low 0.9-7.0 [facility] Comment on above: Performed By: #### C MP, HSTROPN, BNP #### [facility] [address] [place] [address] Dr. Get Whitten Erythrocyte distribution width (RBC) [Ratio] 13.2 % Normal 11.0-15.0 [facility] Comment on above: Performed By: #### C MP, HSTROPN, BNP #### [facility] [address] [place] [address] Dr. Get Whitten Hematocrit (Bld) [Volume fraction] 37.9 % Critically low 42.0-54.0 [facility] Comment on above: Performed By: #### C MP, HSTROPN, BNP #### [facility] [address] [place] [address] Dr. Get Whitten Hemoglobin (Bld) [Mass/Vol] 13.1 g/dL Critically low 14.0-18.0 [facility] Comment on above: Performed By: #### C MP, HSTROPN, BNP #### [facility] [address] [place] [address] Dr. Get Whitten IG # 0.24 10e3/ul Critically high 0.00-0.03 [facility] Comment on above: Performed By: #### C MP, HSTROPN, BNP #### [facility] [address] [place] [address] Dr. Get Whitten IG % 3.1 % Critically high 0.0-0.5 [facility] Comment on above: Performed By: #### C MP, HSTROPN, BNP #### [facility] [address] [place] [address] Dr. Get Whitten LYMPH # 3.1 103/ul Normal 1.2-3.8 [facility] Comment on above: Performed By: #### C MP, HSTROPN, BNP #### [facility] [address] [place] [address] Dr. Get Whitten Lymphocytes/100 WBC (Bld) 40.3 % Normal 20.5-60.0 [facility] Comment on above: Performed By: #### C MP, HSTROPN, BNP #### [facility] [address] [place] [address] Dr. Get Whitten MANUAL DIFF REQ NO Normal [facility] Comment on above: Performed By: #### C MP, HSTROPN, BNP #### [facility] [address] [place] [address] Dr. Get Whitten MCH (RBC) [Entitic mass] 36.1 pg Critically high 25.9-34.[address] [facility] Comment on above: Performed By: #### C MP, HSTROPN, BNP #### [facility] [address] [address] [address] Get Whitten MCHC (RBC) [Mass/Vol] 34.6 g/dL Normal 29.9-35.[address] [facility] Comment on above: Performed By: #### C MP, HSTROPN, BNP #### [facility] [address] [place] [address] Dr. Get Whitten MCV (RBC) [Entitic vol] 104.4 fL Critically high 80.0-94.[address] [facility] Comment on above: Performed By: #### C MP, HSTROPN, BNP #### [facility] [address] [place] [address] Dr. Get Whitten MONO # 0.7 103/ul Normal 0.3-0.[address] [facility] Comment on above: Performed By: #### C MP, HSTROPN, BNP #### [facility] [address] [place] [address] Dr. Get Whitten Monocytes/100 WBC (Bld) 9.4 % Normal 1.7-12.[address] [facility] Comment on above: Performed By: #### C MP, HSTROPN, BNP #### [facility] [address] [place] [address] Dr. Get Whitten NEUT # 3.6 103/ul Normal 1.4-6.[address] [facility] Comment on above: Performed By: #### C MP, HSTROPN, BNP #### [facility] [address] [place] [address] Dr. Get Whitten Neutrophils/100 WBC (Bld) 46.5 % Normal 43.0-75.[address] [facility] Comment on above: Performed By: #### C MP, HSTROPN, BNP #### [facility] [address] [address] [address] Get Whitten Platelet mean volume (Bld) [Entitic vol] 8.5 fL Critically low 9.5-13.5 [facility] Comment on above: Performed By: #### C MP, HSTROPN, BNP #### [facility] [address] [place] [address] Dr. Get Whitten PLT 128 103/ul Critically low 150-450 [facility] Comment on above: Performed By: #### C MP, HSTROPN, BNP #### [facility] [address] [place] [address] Dr. Get Whitten RBC 3.63 106/ul Critically low 4.70-6.10 [facility] Comment on above: Performed By: #### C MP, HSTROPN, BNP #### [facility] [address] [place] [address] Dr. Get Whitten WBC 7.7 103/ul Normal 4.0-11.[address] [facility] Comment on above: Performed By: #### C MP, HSTROPN, BNP #### [facility] [address] [place] [address] Dr. Get Whitten FREE THYROXINE INDEX T7on FTI 0.22 Critically low 1.30-4.50 [facility] Comment on above: Performed By: #### B TECHNICAL SUPPORT AGENT, T7, CMP, TSH #### [facility] [address] [place] [address] Dr. Get Whitten T3U 37.0 % Normal 33.0-40.[address] [facility] Comment on above: Performed By: #### B TECHNICAL SUPPORT AGENT, T7, CMP, TSH #### [facility] [address] [place] [address] Dr. Get Whitten T4 [Mass/Vol] 0.60 ug/dL Critically low 4.50-12.10 [facility] Comment on above: Performed By: #### B TECHNICAL SUPPORT AGENT, T7, CMP, TSH #### [facility] [address] [address] [address] Get Whitten IRONon 04-15-2022 Iron [Mass/Vol] 74.0 ug/dL Normal 65.0-175.0 [facility] Comment on above: Performed By: #### C VDTBH #### [facility] [address] [address] [address] Get Whitten PROF 14(COMP METB)on 022 Albumin [Mass/Vol] 3.6 g/dL Normal 3.4-5.0 [facility] Comment on above: Performed By: #### B TECHNICAL SUPPORT AGENT, T7, CMP, TSH #### [facility] [address] [place] [address] Dr. Get Whitten Albumin/Globulin [Mass ratio] 1.3 {ratio} Normal [facility] Comment on above: Performed By: #### B TECHNICAL SUPPORT AGENT, T7, CMP, TSH #### [facility] [address] [address] [address] Get Whitten ALP [Catalytic activity/Vol] 41 U/L Critically low 46-116 [facility] Comment on above: Performed By: #### B TECHNICAL SUPPORT AGENT, T7, CMP, TSH #### [facility] [address] [address] [address] Get Whitten ALT [Catalytic activity/Vol] 111 U/L Critically high 16-63 [facility] Comment on above: Performed By: #### B TECHNICAL SUPPORT AGENT, T7, CMP, TSH #### [facility] [address] [address] [address] Get Whitten Anion gap [Moles/Vol] 10.3 mmol/L Normal [facility] Comment on above: Performed By: #### B TECHNICAL SUPPORT AGENT, T7, CMP, TSH #### [facility] [address] [place] [address] Dr. Get Whitten AST [Catalytic activity/Vol] 30 U/L Normal 15-37 [facility] Comment on above: Performed By: #### B TECHNICAL SUPPORT AGENT, T7, CMP, TSH #### [facility] [address] [place] [address] Dr. Get Whitten Bilirubin [Mass/Vol] 0.3 mg/dL Normal 0.2-1.0 [facility] Comment on above: Performed By: #### B TECHNICAL SUPPORT AGENT, T7, CMP, TSH #### [facility] [address] [address] [address] Get Whitten Calcium [Mass/Vol] 8.1 mg/dL Critically low 8.5-10.[address] [facility] Comment on above: Performed By: #### B TECHNICAL SUPPORT AGENT, T7, CMP, TSH #### [facility] [address] [place] [address] Dr. Get Whitten Chloride [Moles/Vol] 98 mmol/L Normal 98-107 [facility] Comment on above: Performed By: #### B TECHNICAL SUPPORT AGENT, T7, CMP, TSH #### [facility] [address] [place] [address] Dr. Get Whitten CO2 [Moles/Vol] 24.7 mmol/L Normal 21.0-32.0 [facility] Comment on above: Performed By: #### B TECHNICAL SUPPORT AGENT, T7, CMP, TSH #### [facility] [address] [place] [address] Dr. Get Whitten Creatinine [Mass/Vol] 1.24 mg/dL Normal 0.70-1.30 [facility] Comment on above: Performed By: #### B TECHNICAL SUPPORT AGENT, T7, CMP, TSH #### [facility] [address] [place] [address] Dr. Get Whitten EGFR-AF PALAUAN >60 Normal >=60 [facility] Comment on above: Performed By: #### B TECHNICAL SUPPORT AGENT, T7, CMP, TSH #### [facility] [address] [place] [address] Dr. Get Whitten EGFR-NON AF PALAUAN =60 Normal >=60 [facility] Comment on above: Performed By: #### B TECHNICAL SUPPORT AGENT, T7, CMP, TSH #### [facility] [address] [place] [address] Dr. Get Whitten Globulin (S) [Mass/Vol] 2.7 g/dL Normal [facility] Comment on above: Performed By: #### B TECHNICAL SUPPORT AGENT, T7, CMP, TSH #### [facility] [address] [place] [address] Dr. Get Whitten Glucose [Mass/Vol] 107 mg/dL Critically high 74-106 T [facility] Comment on above: Performed By: #### B TECHNICAL SUPPORT AGENT, T7, CMP, TSH #### [facility] [address] [place] [address] Dr. Get Whitten Potassium [Moles/Vol] 4.0 mmol/L Normal 3.5-5.1 [facility] Comment on above: Performed By: #### B TECHNICAL SUPPORT AGENT, T7, CMP, TSH #### [facility] [address] [place] [address] Dr. Get Whitten Protein [Mass/Vol] 6.3 g/dL Critically low 6.4-8.2 [facility] Comment on above: Performed By: #### B TECHNICAL SUPPORT AGENT, T7, CMP, TSH #### [facility] [address] [place] [address] Dr. Get Whitten Sodium [Moles/Vol] 129 mmol/L Critically low 136-145 [facility] Comment on above: Performed By: #### B TECHNICAL SUPPORT AGENT, T7, CMP, TSH #### [facility] [address] [place] [address] Dr. Get Whitten Urea nitrogen [Mass/Vol] 12.0 mg/dL Normal 7.0-18.0 [facility] Comment on above: Performed By: #### B TECHNICAL SUPPORT AGENT, T7, CMP, TSH #### [facility] [address] [place] [address] Dr. Get Whitten Urea nitrogen/Creatinine [Mass ratio] 9.7 mg/mg Normal [facility] Comment on above: Performed By: #### B TECHNICAL SUPPORT AGENT, T7, CMP, TSH #### [facility] [address] [place] [address] Dr. Get Whitten TSHon 04-15-2022 TSH 76.327 uIU/mL Critically high 0.358-3.740 [facility] Comment on above: Performed By: #### B TECHNICAL SUPPORT AGENT, T7, CMP, TSH #### [facility] [address] [place] [address] Dr. Get Whitten BNPon 03-31-2022 Natriuretic peptide B (Bld) [Mass/Vol] 349.0 pg/mL Normal <=900.0 [facility] Comment on above: Performed By: #### B TECHNICAL SUPPORT AGENT, T7, CMP, TSH #### [facility] [address] [place] [address] Dr. Get Whitten CBC W MANUAL DIFFon 03-31-20 22 ATYPICAL LYMPH # 0.26 103/ul Normal [facility] Comment on above: Performed By: #### C MP #### [facility] [address] [place] [address] Dr. Get Whitten ATYPICAL LYMPH % 2 % Normal [facility] Comment on above: Performed By: #### C MP #### [facility] [address] [place] [address] Dr. Get Whitten BAND # 0.0 103/ul Normal 0.0-0.[address] [facility] Comment on above: Performed By: #### C MP #### [facility] [address] [place] [address] Dr. Get Whitten BAND % 0 % Normal 0-5 [facility] Comment on above: Performed By: #### C MP #### [facility] [address] [place] [address] Dr. Get Whitten BASOM # 0.00 103/ul Normal 0.00-0.10 [facility] Comment on above: Performed By: #### C MP #### [facility] [address] [place] [address] Dr. Get Whitten BASOM % 0.0 % Critically low 0.2-2.0 [facility] Comment on above: Performed By: #### C MP #### [facility] [address] [place] [address] Dr. Get Whitten BLAST # Normal [facility] Comment on above: Performed By: #### C MP #### [facility] [address] [place] [address] Dr. Get Whitten BLAST % Normal [facility] Comment on above: Performed By: #### C MP #### [facility] [address] [address] [address] Get Whitten CORRECTED WBC Normal 4.0-11.0 [facility] Comment on above: Performed By: #### C MP #### [facility] [address] [address] [address] Get Whitten EOS # 0.00 103/ul Normal 0.00-0.[address] [facility] Comment on above: Performed By: #### C MP #### [facility] [address] [address] [address] Get Whitten EOS% 0.0 % Critically low 0.9-7.0 [facility] Comment on above: Performed By: #### C MP #### [facility] [address] [place] [address] Dr. Get Whitten HCT 38.3 % Critically low 42.0-54.0 [facility] Comment on above: Performed By: #### C MP #### [facility] [address] [place] [address] Dr. Get Whitten HGB 13.7 g/dl Critically low 14.0-18.0 [facility] Comment on above: Performed By: #### C MP #### [facility] [address] [place] [address] Dr. Get Whitten LYMPHM # 1.43 103/ul Normal 1.20-3.[address] [facility] Comment on above: Performed By: #### C MP #### [facility] [address] [address] [address] Get Whitten LYMPHM% 11.0 % Critically low 20.5-60.0 [facility] Comment on above: Performed By: #### C MP #### [facility] [address] [place] [address] Dr. Get Whitten MCH 36.3 pg Critically high 25.9-34.0 [facility] Comment on above: Performed By: #### C MP #### [facility] [address] [place] [address] Dr. Get Whitten MCHC 35.8 g/dl Critically high 29.9-35.2 [facility] Comment on above: Performed By: #### C MP #### [facility] [address] [place] [address] Dr. Get Whitten MCV 101.6 fL Critically high 80.0-94.0 [facility] Comment on above: Performed By: #### C MP #### [facility] [address] [place] [address] Dr. Get Whitten METAMYELOCYTE # Normal [facility] Comment on above: Performed By: #### C MP #### [facility] [address] [place] [address] Dr. Get Whitten METAMYELOCYTE % Normal [facility] Comment on above: Performed By: #### C MP #### [facility] [address] [place] [address] Dr. Get Whitten MONOM# 0.78 103/ul Normal 0.30-0.80 [facility] Comment on above: Performed By: #### C MP #### [facility] [address] [place] [address] Dr. Get Whitten MONOM% 6.0 % Normal 1.7-12.0 [facility] Comment on above: Performed By: #### C MP #### [facility] [address] [place] [address] Dr. Get Whitten MPV 8.7 fL Critically low 9.5-13.5 [facility] Comment on above: Performed By: #### C MP #### [facility] [address] [place] [address] Dr. Get Whitten MYELOCYTE # Normal [facility] Comment on above: Performed By: #### C MP #### [facility] [address] [place] [address] Dr. Get Whitten MYELOCYTE % Normal [facility] Comment on above: Performed By: #### C MP #### [facility] [address] [place] [address] Dr. Get Whitten NRBC Normal [facility] Comment on above: Performed By: #### C MP #### [facility] [address] [address] [address] Get Whitten PLT 225 103/ul Normal 150-[address] [facility] Comment on above: Performed By: #### C MP #### [facility] [address] [address] [address] Get Whitten RBC 3.77 106/ul Critically low 4.70-6.10 [facility] Comment on above: Performed By: #### C MP #### [facility] [address] [address] [address] Get Whitten RDW 12.7 % Normal 11.0-15.0 [facility] Comment on above: Performed By: #### C MP #### [facility] [address] [address] [address] Get Whitten SEG # 10.53 103/ul Critically high 1.40-6.50 [facility] Comment on above: Performed By: #### C MP #### [facility] [address] [address] [address] Get Whitten SEG % 81.0 % Critically high 43.0-75.0 [facility] Comment on above: Performed By: #### C MP #### [facility] [address] [address] [address] Get Whitten WBC 13.0 103/ul Critically high 4.0-11.0 [facility] Comment on above: Performed By: #### C MP #### [facility] [address] [address] [address] Get Whitten CRPon 03-31-2022 CRP [Mass/Vol] mg/L Normal <=1.0 [facility] Comment on above: Performed By: #### B TECHNICAL SUPPORT AGENT, T7, CMP, TSH #### [facility] [address] [address] [address] Get Whitten PROF 14(COMP METB)on 022 Albumin [Mass/Vol] 3.3 g/dL Critically low 3.4-5.0 [facility] Comment on above: Performed By: #### B TECHNICAL SUPPORT AGENT, T7, CMP, TSH #### [facility] [address] [address] [address] Get Whitten Albumin/Globulin [Mass ratio] 1.2 {ratio} Normal [facility] Comment on above: Performed By: #### B TECHNICAL SUPPORT AGENT, T7, CMP, TSH #### [facility] [address] [address] [address] Get Whitten ALP [Catalytic activity/Vol] 48 U/L Normal 46-116 [facility] Comment on above: Performed By: #### B TECHNICAL SUPPORT AGENT, T7, CMP, TSH #### [facility] [address] [address] [address] Get Whitten ALT [Catalytic activity/Vol] 130 U/L Critically high 16-63 [facility] Comment on above: Performed By: #### B TECHNICAL SUPPORT AGENT, T7, CMP, TSH #### [facility] [address] [place] [address] Dr. Get Whitten Anion gap [Moles/Vol] 11.9 mmol/L Normal [facility] Comment on above: Performed By: #### B TECHNICAL SUPPORT AGENT, T7, CMP, TSH #### [facility] [address] [address] [address] Get Whitten AST [Catalytic activity/Vol] 50 U/L Critically high 15-37 [facility] Comment on above: Performed By: #### B TECHNICAL SUPPORT AGENT, T7, CMP, TSH #### [facility] [address] [address] [address] Get Whitten Bilirubin [Mass/Vol] 0.5 mg/dL Normal 0.2-1.0 [facility] Comment on above: Performed By: #### B TECHNICAL SUPPORT AGENT, T7, CMP, TSH #### [facility] [address] [address] [address] Get Whitten Calcium [Mass/Vol] 7.9 mg/dL Critically low 8.5-10.[address] [facility] Comment on above: Performed By: #### B TECHNICAL SUPPORT AGENT, T7, CMP, TSH #### [facility] [address] [address] [address] Get Whitten Chloride [Moles/Vol] 99 mmol/L Normal 98-107 [facility] Comment on above: Performed By: #### B TECHNICAL SUPPORT AGENT, T7, CMP, TSH #### [facility] [address] [place] [address] Dr. Get Whitten CO2 [Moles/Vol] 18.4 mmol/L Critically low 21.0-32.0 [facility] Comment on above: Performed By: #### B TECHNICAL SUPPORT AGENT, T7, CMP, TSH #### [facility] [address] [place] [address] Dr. Get Whitten Creatinine [Mass/Vol] 0.96 mg/dL Normal 0.70-1.30 [facility] Comment on above: Performed By: #### B TECHNICAL SUPPORT AGENT, T7, CMP, TSH #### [facility] [address] [place] [address] Dr. Get Whitten EGFR-AF PALAUAN >60 Normal >=60 [facility] Comment on above: Performed By: #### B TECHNICAL SUPPORT AGENT, T7, CMP, TSH #### [facility] [address] [place] [address] Dr. Get Whitten EGFR-NON AF PALAUAN >60 Normal >=60 [facility] Comment on above: Performed By: #### B TECHNICAL SUPPORT AGENT, T7, CMP, TSH #### [facility] [address] [place] [address] Dr. Get Whitten Globulin (S) [Mass/Vol] 2.8 g/dL Normal [facility] Comment on above: Performed By: #### B TECHNICAL SUPPORT AGENT, T7, CMP, TSH #### [facility] [address] [place] [address] Dr. Get Whitten Glucose [Mass/Vol] 166 mg/dL Critically high 74-106 [facility] Comment on above: Performed By: #### B TECHNICAL SUPPORT AGENT, T7, CMP, TSH #### [facility] [address] [place] [address] Dr. Get Whitten Potassium [Moles/Vol] 3.3 mmol/L Critically low 3.5-5.1 [facility] Comment on above: Performed By: #### B TECHNICAL SUPPORT AGENT, T7, CMP, TSH #### [facility] [address] [place] [address] Dr. Get Whitten Protein [Mass/Vol] 6.1 g/dL Critically low 6.4-8.2 [facility] Comment on above: Performed By: #### B TECHNICAL SUPPORT AGENT, T7, CMP, TSH #### [facility] [address] [place] [address] Dr. Get Whitten Sodium [Moles/Vol] 126 mmol/L Critically low 136-145 [facility] Comment on above: Performed By: #### B TECHNICAL SUPPORT AGENT, T7, CMP, TSH #### [facility] [address] [place] [address] Dr. Get Whitten Urea nitrogen [Mass/Vol] 8.0 mg/dL Normal 7.0-18.0 [facility] Comment on above: Performed By: #### B TECHNICAL SUPPORT AGENT, T7, CMP, TSH #### [facility] [address] [place] [address] Dr. Get Whitten Urea nitrogen/Creatinine [Mass ratio] 8.3 mg/mg Normal [facility] Comment on above: Performed By: #### B TECHNICAL SUPPORT AGENT, T7, CMP, TSH #### [facility] [address] [place] [address] Dr. Get Whitten BNPon 03-30-2022 Natriuretic peptide B (Bld) [Mass/Vol] 274.0 pg/mL Normal <=900.0 [facility] Comment on above: Performed By: #### C MP, HSTROPN, BNP #### [facility] [address] [place] [address] Dr. Get Whitten CARDIAC ANA 3-6on 2 CK [Catalytic activity/Vol] 48 U/L Normal 39-308 [facility] Comment on above: Performed By: #### B TECHNICAL SUPPORT AGENT, T7, CMP, TSH #### [facility] [address] [place] [address] Dr. Get Whitten CK.MB [Mass/Vol] 1.62 ng/mL Normal <=3.60 [facility] Comment on above: Performed By: #### B TECHNICAL SUPPORT AGENT, T7, CMP, TSH #### [facility] [address] [place] [address] Dr. Get Whitten HSTROP 15.7 pg/mL Normal 4.0-76.[address] [facility] Comment on above: Result Comment: CUT- OFF POINTS HAVE BEEN ESTABLISHED BASED ON THE FOURTH UNIVERSAL DEFINITIONS OF MYOCARDIAL INFARCTION. THE UPPER REFERENCE LIMIT (URL) OF TROPONIN, DEFINED THE 99TH PERCENTILE OF cTnI DISTRIBUTION IN A REFERENCE POPULATION, HAS BEEN CONFIRMED THE DECISION THRESHOLD FOR MT DIAGNOSIS. Performed By: #### B TECHNICAL SUPPORT AGENT, T7, CMP, TSH #### [facility] [address] [place] [address] Dr. Get Whitten CBC AUTO DIFFon 03-30-2022 BASO # 0.1 103/ul Normal 0.0-0.1 [facility] Comment on above: Performed By: #### C MP #### [facility] [address] [place] [address] Dr. Get Whitten Basophils/100 WBC (Bld) 0.8 % Normal 0.2-2.0 [facility] Comment on above: Performed By: #### C MP #### [facility] [address] [place] [address] Dr. Get Whitten EO # 0.6 103/ul Normal 0.0-0.[address] [facility] Comment on above: Performed By: #### C MP #### [facility] [address] [place] [address] Dr. Get Whitten Eosinophils/100 WBC (Bld) 5.2 % Normal 0.9-7.[address] [facility] Comment on above: Performed By: #### C MP #### [facility] [address] [place] [address] Dr. Get Whitten Erythrocyte distribution width (RBC) [Ratio] 12.7 % Normal 11.0-15.[address] [facility] Comment on above: Performed By: #### C MP #### [facility] [address] [place] [address] Dr. Get Whitten Hematocrit (Bld) [Volume fraction] 41.7 % Critically low 42.0-54.0 [facility] Comment on above: Performed By: #### C MP #### [facility] [address] [address] [address] Get Whitten Hemoglobin (Bld) [Mass/Vol] 14.9 g/dL Normal 14.0-18.0 [facility] Comment on above: Performed By: #### C MP #### [facility] [address] [address] [address] Get Whitten IG # 0.48 10e3/ul Critically high 0.00-0.03 [facility] Comment on above: Performed By: #### C MP #### [facility] [address] [address] [address] Get Whitten IG % 4.1 % Critically high 0.0-0.5 [facility] Comment on above: Performed By: #### C MP #### [facility] [address] [address] [address] Get Whitten LYMPH # 1.4 103/ul Normal 1.2-3.[address] [facility] Comment on above: Performed By: #### C MP #### [facility] [address] [address] [address] Get Whitten Lymphocytes/100 WBC (Bld) 11.9 % Critically low 20.5-60.0 [facility] Comment on above: Performed By: #### C MP #### [facility] [address] [address] [address] Get Whitten MANUAL DIFF REQ NO Normal [facility] Comment on above: Performed By: #### C MP #### [facility] [address] [address] [address] Get Whitten MCH (RBC) [Entitic mass] 36.8 pg Critically high 25.9-34.[address] [facility] Comment on above: Performed By: #### C MP #### [facility] [address] [address] [address] Get Whitten MCHC (RBC) [Mass/Vol] 35.7 g/dL Critically high 29.9-35.[address] [facility] Comment on above: Performed By: #### C MP #### [facility] [address] [address] [address] Get Whitten MCV (RBC) [Entitic vol] 103.0 fL Critically high 80.0-94.0 [facility] Comment on above: Performed By: #### C MP #### [facility] [address] [address] [address] Get Whitten MONO # 0.5 103/ul Normal 0.3-0.8 [facility] Comment on above: Performed By: #### C MP #### [facility] [address] [address] [address] Get Whitten Monocytes/100 WBC (Bld) 4.3 % Normal 1.7-12.0 [facility] Comment on above: Performed By: #### C MP #### [facility] [address] [place] [address] Dr. Get Whitten NEUT # 8.6 103/ul Critically high 1.4-6.5 [facility] Comment on above: Performed By: #### C MP #### [facility] [address] [place] [address] Dr. Get Whitten Neutrophils/100 WBC (Bld) 73.7 % Normal 43.0-75.0 [facility] Comment on above: Performed By: #### C MP #### [facility] [address] [place] [address] Dr. Get Whitten Platelet mean volume (Bld) [Entitic vol] 9.0 fL Critically low 9.5-13.[address] [facility] Comment on above: Performed By: #### C MP #### [facility] [address] [place] [address] Dr. Get Whitten PLT 244 103/ul Normal 150-[address] [facility] Comment on above: Performed By: #### C MP #### [facility] [address] [place] [address] Dr. Get Whitten RBC 4.05 106/ul Critically low 4.70-6.10 [facility] Comment on above: Performed By: #### C MP #### [facility] [address] [place] [address] Dr. Get Whitten WBC 11.7 103/ul Critically high 4.0-11.0 [facility] Comment on above: Performed By: #### C MP #### [facility] [address] [place] [address] Dr. Get Whitten CRPon 03-30-2022 CRP 0.3 mg/dL Normal <=1.0 [facility] Comment on above: Performed By: #### C MP, HSTROPN, BNP #### [facility] [address] [address] [address] Get Whitten CULTURE SPUTUMon 03-30-2022 CULTURE [...] F Oxacillin >=4 R F Normal [facility] Comment on above: Performed By: #### B TECHNICAL SUPPORT AGENT, T7, CMP, TSH #### [facility] [address] [place] [address] Dr. Get Whitten ECHO LIMITED STUDYon 022 ECHO LIMITED STUDY Patient: REHAN POOLE Exam Date: 03/30/2022 : 1965 Gender:M Ordering : DR PEE GUADALUPE . Admission #: [id number] Family : Order #: [id number] CLICK HERE TO VIEW EXAM ECHOCARDIOGRAM REPORT [...] Dominguez M.D. on 03/31/2022 at 19:42 Normal [facility] PROF 14(COMP METB)on 022 Albumin [Mass/Vol] 3.5 g/dL Normal 3.4-5.0 [facility] Comment on above: Performed By: #### C MP, HSTROPN, BNP #### [facility] [address] [address] [address] Get Whitten Albumin/Globulin [Mass ratio] 1.2 {ratio} Normal [facility] Comment on above: Performed By: #### C MP, HSTROPN, BNP #### [facility] [address] [address] [address] Get Whitten ALP [Catalytic activity/Vol] 58 U/L Normal 46-116 [facility] Comment on above: Performed By: #### C MP, HSTROPN, BNP #### [facility] [address] [address] [address] Get Whitten ALT [Catalytic activity/Vol] 108 U/L Critically high 16-63 [facility] Comment on above: Performed By: #### C MP, HSTROPN, BNP #### [facility] [address] [address] [address] Get Whitten Anion gap [Moles/Vol] 12.6 mmol/L Normal [facility] Comment on above: Performed By: #### C MP, HSTROPN, BNP #### [facility] [address] [place] [address] Dr. Get Whitten AST [Catalytic activity/Vol] 33 U/L Normal 15-37 [facility] Comment on above: Performed By: #### C MP, HSTROPN, BNP #### [facility] [address] [address] [address] Get Whitten Bilirubin [Mass/Vol] 0.6 mg/dL Normal 0.2-1.0 [facility] Comment on above: Performed By: #### C MP, HSTROPN, BNP #### [facility] [address] [address] [address] Get Whitten Calcium [Mass/Vol] 8.0 mg/dL Critically low 8.5-10.1 [facility] Comment on above: Performed By: #### C MP, HSTROPN, BNP #### [facility] [address] [address] [address] Get Whitten Chloride [Moles/Vol] 99 mmol/L Normal 98-107 [facility] Comment on above: Performed By: #### C MP, HSTROPN, BNP #### [facility] [address] [address] [address] Get Whitten CO2 [Moles/Vol] 22.0 mmol/L Normal 21.0-32.0 [facility] Comment on above: Performed By: #### C MP, HSTROPN, BNP #### [facility] [address] [place] [address] Dr. Get Whitten Creatinine [Mass/Vol] 1.12 mg/dL Normal 0.70-1.30 [facility] Comment on above: Performed By: #### C MP, HSTROPN, BNP #### [facility] [address] [place] [address] Dr. Get Whitten EGFR-AF PALAUAN >60 Normal >=60 [facility] Comment on above: Performed By: #### C MP, HSTROPN, BNP #### [facility] [address] [place] [address] Dr. Get Whitten EGFR-NON AF PALAUAN >60 Normal >=60 [facility] Comment on above: Performed By: #### C MP, HSTROPN, BNP #### [facility] [address] [place] [address] Dr. Get Whitten Globulin (S) [Mass/Vol] 3.0 g/dL Normal [facility] Comment on above: Performed By: #### C MP, HSTROPN, BNP #### [facility] [address] [place] [address] Dr. Get Whitten Glucose [Mass/Vol] 135 mg/dL Critically high 74-106 T [facility] Comment on above: Performed By: #### C MP, HSTROPN, BNP #### [facility] [address] [address] [address] Get Whitten Potassium [Moles/Vol] 3.6 mmol/L Normal 3.5-5.1 [facility] Comment on above: Performed By: #### C MP, HSTROPN, BNP #### [facility] [address] [place] [address] Dr. Get Whitten Protein [Mass/Vol] 6.5 g/dL Normal 6.4-8.2 [facility] Comment on above: Performed By: #### C MP, HSTROPN, BNP #### [facility] [address] [place] [address] Dr. Get Whitten Sodium [Moles/Vol] 130 mmol/L Critically low 136-145 [facility] Comment on above: Performed By: #### C MP, HSTROPN, BNP #### [facility] [address] [place] [address] Dr. Get Whitten Urea nitrogen [Mass/Vol] 7.0 mg/dL Normal 7.0-18.0 [facility] Comment on above: Performed By: #### C MP, HSTROPN, BNP #### [facility] [address] [place] [address] Dr. Get Whitten Urea nitrogen/Creatinine [Mass ratio] 6.2 mg/mg Normal [facility] Comment on above: Performed By: #### C MP, HSTROPN, BNP #### [facility] [address] [place] [address] Dr. Get Whitten CARDIAC ANA 3-6on 2 CK [Catalytic activity/Vol] 51 U/L Normal 39-308 [facility] Comment on above: Performed By: #### C VDTBH #### [facility] [address] [place] [address] Dr. Get Whitten CK.MB [Mass/Vol] 1.89 ng/mL Normal <=3.60 [facility] Comment on above: Performed By: #### C VDTBH #### [facility] [address] [place] [address] Dr. Get Whitten HSTROP 14.4 pg/mL Normal 4.0-76.1 [facility] Comment on above: Result Comment: CUT- OFF POINTS HAVE BEEN ESTABLISHED BASED ON THE FOURTH UNIVERSAL DEFINITIONS OF MYOCARDIAL INFARCTION. THE UPPER REFERENCE LIMIT (URL) OF TROPONIN, DEFINED THE 99TH PERCENTILE OF cTnI DISTRIBUTION IN A REFERENCE POPULATION, HAS BEEN CONFIRMED THE DECISION THRESHOLD FOR MT DIAGNOSIS. Performed By: #### C VDTBH #### [facility] [address] [place] [address] Dr. Get Whitten CARDIAC ANA ADMITon 022 CK [Catalytic activity/Vol] 128 U/L Normal 39-[address] [facility] Comment on above: Performed By: #### C MP, HSTROPN, BNP #### [facility] [address] [place] [address] Dr. Get Whitten CK.MB [Mass/Vol] 2.22 ng/mL Normal <=3.60 [facility] Comment on above: Performed By: #### C MP, HSTROPN, BNP #### [facility] [address] [place] [address] Dr. Get Whitten HSTROP 11.2 pg/mL Normal 4.0-76.[address] [facility] Comment on above: Result Comment: CUT- OFF POINTS HAVE BEEN ESTABLISHED BASED ON THE FOURTH UNIVERSAL DEFINITIONS OF MYOCARDIAL INFARCTION. THE UPPER REFERENCE LIMIT (URL) OF TROPONIN, DEFINED THE 99TH PERCENTILE OF cTnI DISTRIBUTION IN A REFERENCE POPULATION, HAS BEEN CONFIRMED THE DECISION THRESHOLD FOR MT DIAGNOSIS. Performed By: #### C MP, HSTROPN, BNP #### [facility] [address] [place] [address] Dr. Get Whitten RAFA 40 ng/mL Normal 16-96 [facility] Comment on above: Performed By: #### C MP, HSTROPN, BNP #### [facility] [address] [place] [address] Dr. Get Whitten CBC AUTO DIFFon 03-29-2022 BASO # 0.1 103/ul Normal 0.0-0.1 [facility] Comment on above: Performed By: #### O SMOU #### [facility] [address] [place] [address] Dr. Get Whitten Basophils/100 WBC (Bld) 0.4 % Normal 0.2-2.[address] [facility] Comment on above: Performed By: #### O SMOU #### [facility] [address] [place] [address] Dr. Get Whitten EO # 0.0 103/ul Normal 0.0-0.7 [facility] Comment on above: Performed By: #### O SMOU #### [facility] [address] [place] [address] Dr. Get Whitten Eosinophils/100 WBC (Bld) 0.1 % Critically low 0.9-7.0 [facility] Comment on above: Performed By: #### O SMOU #### [facility] [address] [place] [address] Dr. Get Whitten Erythrocyte distribution width (RBC) [Ratio] 12.8 % Normal 11.0-15.0 [facility] Comment on above: Performed By: #### O SMOU #### [facility] [address] [place] [address] Dr. Get Whitten Hematocrit (Bld) [Volume fraction] 42.1 % Normal 42.0-54.0 [facility] Comment on above: Performed By: #### O SMOU #### [facility] [address] [place] [address] Dr. Get Whitten Hemoglobin (Bld) [Mass/Vol] 15.3 g/dL Normal 14.0-18.0 [facility] Comment on above: Performed By: #### O SMOU #### [facility] [address] [place] [address] Dr. Get Whitten IG # 0.49 10e3/ul Critically high 0.00-0.03 [facility] Comment on above: Performed By: #### O SMOU #### [facility] [address] [place] [address] Dr. Get Whitten IG % 3.6 % Critically high 0.0-0.5 [facility] Comment on above: Performed By: #### O SMOU #### [facility] [address] [place] [address] Dr. Get Whitten LYMPH # 2.2 103/ul Normal 1.2-3.[address] [facility] Comment on above: Performed By: #### O SMOU #### [facility] [address] [place] [address] Dr. Get Whitten Lymphocytes/100 WBC (Bld) 16.1 % Critically low 20.5-60.0 [facility] Comment on above: Performed By: #### O SMOU #### [facility] [address] [place] [address] Dr. Get Whitten MANUAL DIFF REQ NO Normal [facility] Comment on above: Performed By: #### O SMOU #### [facility] [address] [place] [address] Dr. Get Whitten MCH (RBC) [Entitic mass] 36.3 pg Critically high 25.9-34.0 [facility] Comment on above: Performed By: #### O SMOU #### [facility] [address] [place] [address] Dr. Get Whitten MCHC (RBC) [Mass/Vol] 36.3 g/dL Critically high 29.9-35.[address] [facility] Comment on above: Performed By: #### O SMOU #### [facility] [address] [place] [address] Dr. Get Whitten MCV (RBC) [Entitic vol] 100.0 fL Critically high 80.0-94.0 [facility] Comment on above: Performed By: #### O SMOU #### [facility] [address] [place] [address] Dr. Get Whitten MONO # 1.1 103/ul Critically high 0.3-0.8 [facility] Comment on above: Performed By: #### O SMOU #### [facility] [address] [place] [address] Dr. Get Whitten Monocytes/100 WBC (Bld) 8.3 % Normal 1.7-12.[address] [facility] Comment on above: Performed By: #### O SMOU #### [facility] [address] [place] [address] Dr. Get Whitten NEUT # 9.6 103/ul Critically high 1.4-6.5 [facility] Comment on above: Performed By: #### O SMOU #### [facility] [address] [place] [address] Dr. Get Whitten Neutrophils/100 WBC (Bld) 71.5 % Normal 43.0-75.[address] [facility] Comment on above: Performed By: #### O SMOU #### [facility] [address] [address] [address] Get Whitten Platelet mean volume (Bld) [Entitic vol] 9.1 fL Critically low 9.5-13.[address] [facility] Comment on above: Performed By: #### O SMOU #### [facility] [address] [place] [address] Dr. Get Whitten PLT 228 103/ul Normal 150-[address] [facility] Comment on above: Performed By: #### O SMOU #### [facility] [address] [address] [address] Get Whitten RBC 4.21 106/ul Critically low 4.70-6.10 [facility] Comment on above: Performed By: #### O SMOU #### [facility] [address] [place] [address] Dr. Get Whitten WBC 13.4 103/ul Critically high 4.0-11.0 [facility] Comment on above: Performed By: #### O SMOU #### [facility] [address] [place] [address] Dr. Get Whitten Covid-19 PCR (CVDTB)on 03-16 SARS-CoV-2 (COVID-19) RNA ASHLEE+probe Ql (Unsp spec) Detected Critically abnormal NOT DETECTED [facility] Comment on above: Result Comment: This test is not yet approved or cleared by the [place] FDA. When there are no FDA-approved or cleared tests available, and other criteria are met, FDA can make tests available under an emergency access mechanism called an Emergency Use Authorization (EUA). The EUA for this test is supported by the [place] of Health and Human Service's declaration that [...] used). Performed By: #### C VDTBH #### [facility] [address] [place] [address] Dr. Get Whitten OSMOLALITYon 03-29-2022 Osmolality [Osmolality] 257 mosm/kg Critically low 275-295 [facility] Comment on above: Performed By: #### C VDTBH #### [facility] [address] [place] [address] Dr. Get Whitten OSMOLALITY URINEon 2 Osmolality, Urine 251 mOsmol/kg Normal [facility] Comment on above: Result Comment: 24 h r : 300 - 900 Random: 50 - 1400 After 12hr fluid restriction: >850 Performed By: #### O SMOU #### [facility] [address] [place] [address] Dr. Get Whtiten PROF CHEM 8 (BAS METB)on Anion gap [Moles/Vol] 17.1 mmol/L Normal [facility] Comment on above: Performed By: #### C MP, HSTROPN, BNP #### [facility] [address] [place] [address] Dr. Get Whitten Calcium [Mass/Vol] 8.4 mg/dL Critically low 8.5-10.1 [facility] Comment on above: Performed By: #### C MP, HSTROPN, BNP #### [facility] [address] [place] [address] Dr. Get Whitten Chloride [Moles/Vol] 98 mmol/L Normal 98-107 [facility] Comment on above: Performed By: #### C MP, HSTROPN, BNP #### [facility] [address] [place] [address] Dr. Get Whitten CO2 [Moles/Vol] 18.1 mmol/L Critically low 21.0-32.0 [facility] Comment on above: Performed By: #### C MP, HSTROPN, BNP #### [facility] [address] [place] [address] Dr. Get Whitten Creatinine [Mass/Vol] 0.98 mg/dL Normal 0.70-1.30 [facility] Comment on above: Performed By: #### C MP, HSTROPN, BNP #### [facility] [address] [place] [address] Dr. Get Whitten EGFR-AF PALAUAN >60 Normal >=60 [facility] Comment on above: Performed By: #### C MP, HSTROPN, BNP #### [facility] [address] [address] [address] Get Whitten EGFR-NON AF PALAUAN >60 Normal >=60 [facility] Comment on above: Performed By: #### C MP, HSTROPN, BNP #### [facility] [address] [address] [address] Get Whitten Glucose [Mass/Vol] 94 mg/dL Normal 74-106 [facility] Comment on above: Performed By: #### C FILOMENA HSTROPN, BNP #### [facility] [address] [address] [address] Get Whitten Potassium [Moles/Vol] 4.2 mmol/L Normal 3.5-5.1 [facility] Comment on above: Performed By: #### C FILOMENA HSTROPN, BNP #### [facility] [address] [address] [address] Get Whitten Sodium [Moles/Vol] 129 mmol/L Critically low 136-145 [facility] Comment on above: Performed By: #### C FILOMENA HSTROPN, BNP #### [facility] [address] [address] [address] Get Whitten Urea nitrogen [Mass/Vol] 8.0 mg/dL Normal 7.0-18.0 [facility] Comment on above: Performed By: #### C MP, HSTROPN, BNP #### [facility] [address] [address] [address] Get Whitten Urea nitrogen/Creatinine [Mass ratio] 8.2 mg/mg Normal [facility] Comment on above: Performed By: #### C FILOMENA HSTROPN, BNP #### [facility] [address] [address] [address] Get Whitten XR CHEST 1 Von [...] GARETH ROMERO Date: 2022-03-29 18:[address] [facility] BNPon 03-28-2022 Natriuretic peptide B (Bld) [Mass/Vol] 401.0 pg/mL Normal <=900.0 [facility] Comment on above: Performed By: #### B TECHNICAL SUPPORT AGENT, T7, CMP, TSH #### [facility] [address] [place] [address] Dr. Get Whitten CBC W MANUAL DIFFon 03-28-20 22 ATYPICAL LYMPH # Normal [facility] Comment on above: Performed By: #### B TECHNICAL SUPPORT AGENT, T7, CMP, TSH #### [facility] [address] [place] [address] Dr. Get Whitten ATYPICAL LYMPH % Normal [facility] Comment on above: Performed By: #### B TECHNICAL SUPPORT AGENT, T7, CMP, TSH #### [facility] [address] [place] [address] Dr. Get Whitten BAND # 0.3 103/ul Normal 0.0-0.3 [facility] Comment on above: Performed By: #### B TECHNICAL SUPPORT AGENT, T7, CMP, TSH #### [facility] [address] [place] [address] Dr. Get Whitten BAND % 2 % Normal 0-[address] [facility] Comment on above: Performed By: #### B TECHNICAL SUPPORT AGENT, T7, CMP, TSH #### [facility] [address] [place] [address] Dr. Get Whitten BASOM # 0.00 103/ul Normal 0.00-0.[address] [facility] Comment on above: Performed By: #### B TECHNICAL SUPPORT AGENT, T7, CMP, TSH #### [facility] [address] [place] [address] Dr. Get Whitten BASOM % 0.0 % Critically low 0.2-2.0 [facility] Comment on above: Performed By: #### B TECHNICAL SUPPORT AGENT, T7, CMP, TSH #### [facility] [address] [address] [address] Get Whitten BLAST # Normal [facility] Comment on above: Performed By: #### B TECHNICAL SUPPORT AGENT, T7, CMP, TSH #### [facility] [address] [address] [address] Get Whitten BLAST % Normal [facility] Comment on above: Performed By: #### B TECHNICAL SUPPORT AGENT, T7, CMP, TSH #### [facility] [address] [address] [address] Get Whitten CORRECTED WBC Normal 4.0-11.0 [facility] Comment on above: Performed By: #### B TECHNICAL SUPPORT AGENT, T7, CMP, TSH #### [facility] [address] [place] [address] Dr. Get Whitten EOS # 0.00 103/ul Normal 0.00-0.70 [facility] Comment on above: Performed By: #### B TECHNICAL SUPPORT AGENT, T7, CMP, TSH #### [facility] [address] [place] [address] Dr. Get Whitten EOS% 0.0 % Critically low 0.9-7.0 [facility] Comment on above: Performed By: #### B TECHNICAL SUPPORT AGENT, T7, CMP, TSH #### [facility] [address] [place] [address] Dr. Get Whitten HCT 36.3 % Critically low 42.0-54.0 [facility] Comment on above: Performed By: #### B TECHNICAL SUPPORT AGENT, T7, CMP, TSH #### [facility] [address] [place] [address] Dr. Get Whitten HGB 12.9 g/dl Critically low 14.0-18.0 [facility] Comment on above: Performed By: #### B TECHNICAL SUPPORT AGENT, T7, CMP, TSH #### [facility] [address] [place] [address] Dr. Get Whitten HYPERSEG NEUT SLIGHT Normal [facility] Comment on above: Performed By: #### B TECHNICAL SUPPORT AGENT, T7, CMP, TSH #### [facility] [address] [address] [address] Get Whitten LYMPHM # 0.89 103/ul Critically low 1.20-3.80 [facility] Comment on above: Performed By: #### B TECHNICAL SUPPORT AGENT, T7, CMP, TSH #### [facility] [address] [address] [address] Get Whitten LYMPHM% 7.0 % Critically low 20.5-60.0 [facility] Comment on above: Performed By: #### B TECHNICAL SUPPORT AGENT, T7, CMP, TSH #### [facility] [address] [place] [address] Dr. Get Whitten MCH 36.5 pg Critically high 25.9-34.0 [facility] Comment on above: Performed By: #### B TECHNICAL SUPPORT AGENT, T7, CMP, TSH #### [facility] [address] [place] [address] Dr. Get Whitten MCHC 35.5 g/dl Critically high 29.9-35.2 [facility] Comment on above: Performed By: #### B TECHNICAL SUPPORT AGENT, T7, CMP, TSH #### [facility] [address] [place] [address] Dr. Get Whitten MCV 102.8 fL Critically high 80.0-94.0 [facility] Comment on above: Performed By: #### B TECHNICAL SUPPORT AGENT, T7, CMP, TSH #### [facility] [address] [address] [address] Get Whitten METAMYELOCYTE # Normal [facility] Comment on above: Performed By: #### B TECHNICAL SUPPORT AGENT, T7, CMP, TSH #### [facility] [address] [place] [address] Dr. Get Whitten METAMYELOCYTE % Normal [facility] Comment on above: Performed By: #### B TECHNICAL SUPPORT AGENT, T7, CMP, TSH #### [facility] [address] [place] [address] Dr. Get Whitten MONOM# 1.02 103/ul Critically high 0.30-0.80 [facility] Comment on above: Performed By: #### B TECHNICAL SUPPORT AGENT, T7, CMP, TSH #### [facility] [address] [address] [address] Get Whitten MONOM% 8.0 % Normal 1.7-12.0 [facility] Comment on above: Performed By: #### B TECHNICAL SUPPORT AGENT, T7, CMP, TSH #### [facility] [address] [address] [address] Get Whitten MPV 9.1 fL Critically low 9.5-13.5 [facility] Comment on above: Performed By: #### B TECHNICAL SUPPORT AGENT, T7, CMP, TSH #### [facility] [address] [place] [address] Dr. Get Whitten MYELOCYTE # Normal [facility] Comment on above: Performed By: #### B TECHNICAL SUPPORT AGENT, T7, CMP, TSH #### [facility] [address] [place] [address] Dr. Get Whitten MYELOCYTE % Normal [facility] Comment on above: Performed By: #### B TECHNICAL SUPPORT AGENT, T7, CMP, TSH #### [facility] [address] [place] [address] Dr. Get Whitten NRBC Normal [facility] Comment on above: Performed By: #### B TECHNICAL SUPPORT AGENT, T7, CMP, TSH #### [facility] [address] [place] [address] Dr. Get Whitten PLT 181 103/ul Normal 150-450 [facility] Comment on above: Performed By: #### B TECHNICAL SUPPORT AGENT, T7, CMP, TSH #### [facility] [address] [address] [address] Get Whitten RBC 3.53 106/ul Critically low 4.70-6.10 [facility] Comment on above: Performed By: #### B TECHNICAL SUPPORT AGENT, T7, CMP, TSH #### [facility] [address] [place] [address] Dr. Get Whitten RDW 12.7 % Normal 11.0-15.0 [facility] Comment on above: Performed By: #### B TECHNICAL SUPPORT AGENT, T7, CMP, TSH #### [facility] [address] [place] [address] Dr. Get Whitten SEG # 10.54 103/ul Critically high 1.40-6.50 [facility] Comment on above: Performed By: #### B TECHNICAL SUPPORT AGENT, T7, CMP, TSH #### [facility] [address] [address] [address] Get Whitten SEG % 83.0 % Critically high 43.0-75.0 [facility] Comment on above: Performed By: #### B TECHNICAL SUPPORT AGENT, T7, CMP, TSH #### [facility] [address] [address] [address] Get Whitten WBC 12.7 103/ul Critically high 4.0-11.0 [facility] Comment on above: Performed By: #### B TECHNICAL SUPPORT AGENT, T7, CMP, TSH #### [facility] [address] [address] [address] Get Whitten PROF 14(COMP METB)on 022 Albumin [Mass/Vol] 3.0 g/dL Critically low 3.4-5.0 [facility] Comment on above: Performed By: #### B TECHNICAL SUPPORT AGENT, T7, CMP, TSH #### [facility] [address] [address] [address] Get Whitten Albumin/Globulin [Mass ratio] 1.2 {ratio} Normal [facility] Comment on above: Performed By: #### B TECHNICAL SUPPORT AGENT, T7, CMP, TSH #### [facility] [address] [address] [address] Get Whitten ALP [Catalytic activity/Vol] 39 U/L Critically low 46-116 [facility] Comment on above: Performed By: #### B TECHNICAL SUPPORT AGENT, T7, CMP, TSH #### [facility] [address] [address] [address] Get Whitten ALT [Catalytic activity/Vol] 94 U/L Critically high 16-63 [facility] Comment on above: Performed By: #### B TECHNICAL SUPPORT AGENT, T7, CMP, TSH #### [facility] [address] [address] [address] Get Whitten Anion gap [Moles/Vol] 11.4 mmol/L Normal [facility] Comment on above: Performed By: #### B TECHNICAL SUPPORT AGENT, T7, CMP, TSH #### [facility] [address] [address] [address] Get Whitten AST [Catalytic activity/Vol] 37 U/L Normal 15-[address] [facility] Comment on above: Performed By: #### B TECHNICAL SUPPORT AGENT, T7, CMP, TSH #### [facility] [address] [address] [address] Get Whitten Bilirubin [Mass/Vol] 0.4 mg/dL Normal 0.2-1.[address] [facility] Comment on above: Performed By: #### B TECHNICAL SUPPORT AGENT, T7, CMP, TSH #### [facility] [address] [place] [address] Dr. Get Whitten Calcium [Mass/Vol] 7.9 mg/dL Critically low 8.5-10.[address] [facility] Comment on above: Performed By: #### B TECHNICAL SUPPORT AGENT, T7, CMP, TSH #### [facility] [address] [place] [address] Dr. Get Whitten Chloride [Moles/Vol] 102 mmol/L Normal 98-[address] [facility] Comment on above: Performed By: #### B TECHNICAL SUPPORT AGENT, T7, CMP, TSH #### [facility] [address] [place] [address] Dr. Get Whitten CO2 [Moles/Vol] 21.0 mmol/L Normal 21.0-32.0 [facility] Comment on above: Performed By: #### B TECHNICAL SUPPORT AGENT, T7, CMP, TSH #### [facility] [address] [place] [address] Dr. Get Whitten Creatinine [Mass/Vol] 1.07 mg/dL Normal 0.70-1.[address] [facility] Comment on above: Performed By: #### B TECHNICAL SUPPORT AGENT, T7, CMP, TSH #### [facility] [address] [place] [address] Dr. Get Whitten EGFR-AF PALAUAN >86 Normal >=60 [facility] Comment on above: Performed By: #### B TECHNICAL SUPPORT AGENT, T7, CMP, TSH #### [facility] [address] [place] [address] Dr. Get Whitten EGFR-NON AF PALAUAN >60 Normal >=60 [facility] Comment on above: Performed By: #### B TECHNICAL SUPPORT AGENT, T7, CMP, TSH #### [facility] [address] [address] [address] Get Whitten Globulin (S) [Mass/Vol] 2.6 g/dL Normal [facility] Comment on above: Performed By: #### B TECHNICAL SUPPORT AGENT, T7, CMP, TSH #### [facility] [address] [address] [address] Get Whitten Glucose [Mass/Vol] 132 mg/dL Critically high 74-106 T [facility] Comment on above: Performed By: #### B TECHNICAL SUPPORT AGENT, T7, CMP, TSH #### [facility] [address] [place] [address] Dr. Get Whitten Potassium [Moles/Vol] 3.4 mmol/L Critically low 3.5-5.1 [facility] Comment on above: Performed By: #### B TECHNICAL SUPPORT AGENT, T7, CMP, TSH #### [facility] [address] [place] [address] Dr. Get Whitten Protein [Mass/Vol] 5.6 g/dL Critically low 6.4-8.2 [facility] Comment on above: Performed By: #### B TECHNICAL SUPPORT AGENT, T7, CMP, TSH #### [facility] [address] [place] [address] Dr. Get Whitten Sodium [Moles/Vol] 131 mmol/L Critically low 136-145 [facility] Comment on above: Performed By: #### B TECHNICAL SUPPORT AGENT, T7, CMP, TSH #### [facility] [address] [place] [address] Dr. Get Whitten Urea nitrogen [Mass/Vol] 16.0 mg/dL Normal 7.0-18.0 [facility] Comment on above: Performed By: #### B TECHNICAL SUPPORT AGENT, T7, CMP, TSH #### [facility] [address] [place] [address] Dr. Get Whitten Urea nitrogen/Creatinine [Mass ratio] 15.0 mg/mg [facility] Comment on above: Performed By: #### B TECHNICAL SUPPORT AGENT, T7, CMP, TSH #### [facility] [address] [place] [address] Dr. Get Whitten T3, TOTAL (TRIIODOTHYRONINE) on 03-28-2022 T3, TOTAL <20 Critically low 71-180 [facility] Comment on above: Performed By: #### C MP, HSTROPN, BNP #### [facility] [address] [place] [address] Dr. Get Whitten T4 LABCORPon 03-28-2022 T4 [Mass/Vol] 0.7 ug/dL Invalid Interpretation Code 4.5-12.0 [facility] Comment on above: Performed By: #### C VDTBH #### [facility] [address] [place] [address] Dr. Get Whitten BNPon 03-27-2022 Natriuretic peptide B (Bld) [Mass/Vol] 340.0 pg/mL Normal <=900.0 [facility] Comment on above: Performed By: #### B TECHNICAL SUPPORT AGENT, T7, CMP, TSH #### [facility] [address] [place] [address] Dr. Get Whitten CBC AUTO DIFFon 03-27-2022 BASO # 0.0 103/ul Normal 0.0-0.1 [facility] Comment on above: Performed By: #### C MP, HSTROPN, BNP #### [facility] [address] [place] [address] Dr. Get Whitten Basophils/100 WBC (Bld) 0.1 % Critically low 0.2-2.0 [facility] Comment on above: Performed By: #### C MP, HSTROPN, BNP #### [facility] [address] [place] [address] Dr. Get Whitten EO # 0.0 103/ul Normal 0.0-0.7 [facility] Comment on above: Performed By: #### C MP, HSTROPN, BNP #### [facility] [address] [place] [address] Dr. Get Whitten Eosinophils/100 WBC (Bld) 0.1 % Critically low 0.9-7.[address] [facility] Comment on above: Performed By: #### C MP, HSTROPN, BNP #### [facility] [address] [address] [address] Get Whitten Erythrocyte distribution width (RBC) [Ratio] 12.7 % Normal 11.0-15.[address] [facility] Comment on above: Performed By: #### C MP, HSTROPN, BNP #### [facility] [address] [address] [address] Get Whitten Hematocrit (Bld) [Volume fraction] 38.7 % Critically low 42.0-54.[address] [facility] Comment on above: Performed By: #### C MP, HSTROPN, BNP #### [facility] [address] [address] [address] Get Whitten Hemoglobin (Bld) [Mass/Vol] 13.6 g/dL Critically low 14.0-18.0 [facility] Comment on above: Performed By: #### C MP, HSTROPN, BNP #### [facility] [address] [address] [address] Get Whitten IG # 1.95 10e3/ul Critically high 0.00-0.03 [facility] Comment on above: Performed By: #### C MP, HSTROPN, BNP #### [facility] [address] [address] [address] Get Whitten IG % 16.0 % Critically high 0.0-0.5 [facility] Comment on above: Performed By: #### C MP, HSTROPN, BNP #### [facility] [address] [address] [address] Get Whitten LYMPH # 1.7 103/ul Normal 1.2-3.[address] [facility] Comment on above: Performed By: #### C MP, HSTROPN, BNP #### [facility] [address] [address] [address] Get Whitten Lymphocytes/100 WBC (Bld) 13.8 % Critically low 20.5-60.[address] [facility] Comment on above: Performed By: #### C MP, HSTROPN, BNP #### [facility] [address] [place] [address] Dr. Get Whitten MANUAL DIFF REQ NO Normal [facility] Comment on above: Performed By: #### C MP, HSTROPN, BNP #### [facility] [address] [place] [address] Dr. Get Whitten MCH (RBC) [Entitic mass] 36.2 pg Critically high 25.9-34.0 [facility] Comment on above: Performed By: #### C MP, HSTROPN, BNP #### [facility] [address] [place] [address] Dr. Get Whitten MCHC (RBC) [Mass/Vol] 35.1 g/dL Normal 29.9-35.[address] [facility] Comment on above: Performed By: #### C MP, HSTROPN, BNP #### [facility] [address] [place] [address] Dr. Get Whitten MCV (RBC) [Entitic vol] 102.9 fL Critically high 80.0-94.[address] [facility] Comment on above: Performed By: #### C MP, HSTROPN, BNP #### [facility] [address] [place] [address] Dr. Get Whitten MONO # 0.4 103/ul Normal 0.3-0.[address] [facility] Comment on above: Performed By: #### C MP, HSTROPN, BNP #### [facility] [address] [place] [address] Dr. Get Whitten Monocytes/100 WBC (Bld) 3.3 % Normal 1.7-12.[address] [facility] Comment on above: Performed By: #### C MP, HSTROPN, BNP #### [facility] [address] [place] [address] Dr. Get Whitten NEUT # 8.2 103/ul Critically high 1.4-6.5 [facility] Comment on above: Performed By: #### C MP, HSTROPN, BNP #### [facility] [address] [place] [address] Dr. Get Whitten Neutrophils/100 WBC (Bld) 66.7 % Normal 43.0-75.0 [facility] Comment on above: Performed By: #### C MP, HSTROPN, BNP #### [facility] [address] [place] [address] Dr. Get Whitten Platelet mean volume (Bld) [Entitic vol] 9.2 fL Critically low 9.5-13.5 [facility] Comment on above: Performed By: #### C MP, HSTROPN, BNP #### [facility] [address] [place] [address] Dr. Get Whitten PLT 167 103/ul Normal 150-450 [facility] Comment on above: Performed By: #### C MP, HSTROPN, BNP #### [facility] [address] [place] [address] Dr. Get Whitten RBC 3.76 106/ul Critically low 4.70-6.10 [facility] Comment on above: Performed By: #### C MP, HSTROPN, BNP #### [facility] [address] [place] [address] Dr. Get Whitten WBC 12.2 103/ul Critically high 4.0-11.0 [facility] Comment on above: Performed By: #### C MP, HSTROPN, BNP #### [facility] [address] [place] [address] Dr. Get Whitten PROF 14(COMP METB)on 022 Albumin [Mass/Vol] 3.1 g/dL Critically low 3.4-5.0 [facility] Comment on above: Performed By: #### B TECHNICAL SUPPORT AGENT, T7, CMP, TSH #### [facility] [address] [place] [address] Dr. Get Whitten Albumin/Globulin [Mass ratio] 1.1 {ratio} Normal [facility] Comment on above: Performed By: #### B TECHNICAL SUPPORT AGENT, T7, CMP, TSH #### [facility] [address] [address] [address] Get Whitten ALP [Catalytic activity/Vol] 44 U/L Critically low 46-116 [facility] Comment on above: Performed By: #### B TECHNICAL SUPPORT AGENT, T7, CMP, TSH #### [facility] [address] [address] [address] Get Whitten ALT [Catalytic activity/Vol] 87 U/L Critically high 16-63 [facility] Comment on above: Performed By: #### B TECHNICAL SUPPORT AGENT, T7, CMP, TSH #### [facility] [address] [address] [address] Get Whitten Anion gap [Moles/Vol] 12.6 mmol/L Normal [facility] Comment on above: Performed By: #### B TECHNICAL SUPPORT AGENT, T7, CMP, TSH #### [facility] [address] [address] [address] Get Whitten AST [Catalytic activity/Vol] 38 U/L Critically high 15-37 [facility] Comment on above: Performed By: #### B TECHNICAL SUPPORT AGENT, T7, CMP, TSH #### [facility] [address] [address] [address] Get Whitten Bilirubin [Mass/Vol] 0.4 mg/dL Normal 0.2-1.0 [facility] Comment on above: Performed By: #### B TECHNICAL SUPPORT AGENT, T7, CMP, TSH #### [facility] [address] [address] [address] Get Whitten Calcium [Mass/Vol] 7.7 mg/dL Critically low 8.5-10.1 [facility] Comment on above: Performed By: #### B TECHNICAL SUPPORT AGENT, T7, CMP, TSH #### [facility] [address] [address] [address] Get Whitten Chloride [Moles/Vol] 97 mmol/L Critically low 98-107 [facility] Comment on above: Performed By: #### B TECHNICAL SUPPORT AGENT, T7, CMP, TSH #### [facility] [address] [address] [address] Get Whitten CO2 [Moles/Vol] 22.1 mmol/L Normal 21.0-32.0 [facility] Comment on above: Performed By: #### B TECHNICAL SUPPORT AGENT, T7, CMP, TSH #### [facility] [address] [address] [address] Get Whitten Creatinine [Mass/Vol] 1.17 mg/dL Normal 0.70-1.30 [facility] Comment on above: Performed By: #### B TECHNICAL SUPPORT AGENT, T7, CMP, TSH #### [facility] [address] [place] [address] Dr. Get Whitten EGFR-AF PALAUAN >60 Normal >=60 [facility] Comment on above: Performed By: #### B TECHNICAL SUPPORT AGENT, T7, CMP, TSH #### [facility] [address] [place] [address] Dr. Get Whitten EGFR-NON AF PALAUAN >60 Normal >=60 [facility] Comment on above: Performed By: #### B TECHNICAL SUPPORT AGENT, T7, CMP, TSH #### [facility] [address] [place] [address] Dr. Get Whitten Globulin (S) [Mass/Vol] 2.7 g/dL Normal [facility] Comment on above: Performed By: #### B TECHNICAL SUPPORT AGENT, T7, CMP, TSH #### [facility] [address] [place] [address] Dr. Get Whitten Glucose [Mass/Vol] 165 mg/dL Critically high 74-106 T [facility] Comment on above: Performed By: #### B TECHNICAL SUPPORT AGENT, T7, CMP, TSH #### [facility] [address] [place] [address] Dr. Get Whitten Potassium [Moles/Vol] 3.7 mmol/L Normal 3.5-5.1 [facility] Comment on above: Performed By: #### B TECHNICAL SUPPORT AGENT, T7, CMP, TSH #### [facility] [address] [place] [address] Dr. Get Whitten Protein [Mass/Vol] 5.8 g/dL Critically low 6.4-8.2 [facility] Comment on above: Performed By: #### B TECHNICAL SUPPORT AGENT, T7, CMP, TSH #### [facility] [address] [place] [address] Dr. Get Whitten Sodium [Moles/Vol] 128 mmol/L Critically low 136-[address] [facility] Comment on above: Performed By: #### B TECHNICAL SUPPORT AGENT, T7, CMP, TSH #### [facility] [address] [place] [address] Dr. Get Whitten Urea nitrogen [Mass/Vol] 17.0 mg/dL Normal 7.0-18.0 [facility] Comment on above: Performed By: #### B TECHNICAL SUPPORT AGENT, T7, CMP, TSH #### [facility] [address] [place] [address] Dr. Get Whitten Urea nitrogen/Creatinine [Mass ratio] 14.5 mg/mg Normal [facility] Comment on above: Performed By: #### B TECHNICAL SUPPORT AGENT, T7, CMP, TSH #### [facility] [address] [place] [address] Dr. Get Whitten SODIUM RANDOM URINEon 2021 Sodium (U) [Moles/Vol] 6 mmol/L Critically low 30-90 [facility] Comment on above: Performed By: #### B TECHNICAL SUPPORT AGENT, T7, CMP, TSH #### [facility] [address] [place] [address] Dr. Get Whitten BNPon 03-26-2022 Natriuretic peptide B (Bld) [Mass/Vol] 472.0 pg/mL Normal <=900.0 [facility] Comment on above: Performed By: #### C MP, HSTROPN, BNP #### [facility] [address] [place] [address] Dr. Get Whitten CARDIAC ANA 3-6on 2 CK [Catalytic activity/Vol] 53 U/L Normal 39-308 [facility] Comment on above: Performed By: #### C VDTBH #### [facility] [address] [place] [address] Dr. Get Whitten CK.MB [Mass/Vol] 1.61 ng/mL Normal <=3.60 [facility] Comment on above: Performed By: #### C VDTBH #### [facility] [address] [place] [address] Dr. Get Whitten HSTROP 20.2 pg/mL Normal 4.0-76.1 [facility] Comment on above: Result Comment: CUT- OFF POINTS HAVE BEEN ESTABLISHED BASED ON THE FOURTH UNIVERSAL DEFINITIONS OF MYOCARDIAL INFARCTION. THE UPPER REFERENCE LIMIT (URL) OF TROPONIN, DEFINED THE 99TH PERCENTILE OF cTnI DISTRIBUTION IN A REFERENCE POPULATION, HAS BEEN CONFIRMED THE DECISION THRESHOLD FOR MT DIAGNOSIS. Performed By: #### C VDTBH #### [facility] [address] [place] [address] Dr. Get Whitten CK [Catalytic activity/Vol] 40 U/L Normal 39-[address] [facility] Comment on above: Performed By: #### B TECHNICAL SUPPORT AGENT, T7, CMP, TSH #### [facility] [address] [place] [address] Dr. Get Whitten CK.MB [Mass/Vol] 1.53 ng/mL Normal <=3.60 [facility] Comment on above: Performed By: #### B TECHNICAL SUPPORT AGENT, T7, CMP, TSH #### [facility] [address] [place] [address] Dr. Get Whitten HSTROP 23.6 pg/mL Normal 4.0-76.1 [facility] Comment on above: Result Comment: CUT- OFF POINTS HAVE BEEN ESTABLISHED BASED ON THE FOURTH UNIVERSAL DEFINITIONS OF MYOCARDIAL INFARCTION. THE UPPER REFERENCE LIMIT (URL) OF TROPONIN, DEFINED THE 99TH PERCENTILE OF cTnI DISTRIBUTION IN A REFERENCE POPULATION, HAS BEEN CONFIRMED THE DECISION THRESHOLD FOR MT DIAGNOSIS. Performed By: #### B TECHNICAL SUPPORT AGENT, T7, CMP, TSH #### [facility] [address] [place] [address] Dr. Get Whitten CBC W MANUAL DIFFon 03-26-20 22 ATYPICAL LYMPH # Normal [facility] Comment on above: Performed By: #### C MP, HSTROPN, BNP #### [facility] [address] [place] [address] Dr. Get Whitten ATYPICAL LYMPH % Normal [facility] Comment on above: Performed By: #### C MP, HSTROPN, BNP #### [facility] [address] [place] [address] Dr. Get Whitten BAND # 0.5 103/ul Critically high 0.0-0.3 [facility] Comment on above: Performed By: #### C MP, HSTROPN, BNP #### [facility] [address] [address] [address] Get Whitten BAND % 4 % Normal 0-5 [facility] Comment on above: Performed By: #### C MP, HSTROPN, BNP #### [facility] [address] [address] [address] Get Whitten BASOM # 0.00 103/ul Normal 0.00-0.10 [facility] Comment on above: Performed By: #### C MP, HSTROPN, BNP #### [facility] [address] [place] [address] Dr. Get Whitten BASOM % 0.0 % Critically low 0.2-2.0 [facility] Comment on above: Performed By: #### C MP, HSTROPN, BNP #### [facility] [address] [place] [address] Dr. Get Whitten BLAST # Normal [facility] Comment on above: Performed By: #### C MP, HSTROPN, BNP #### [facility] [address] [place] [address] Dr. Get Whitten BLAST % Normal [facility] Comment on above: Performed By: #### C MP, HSTROPN, BNP #### [facility] [address] [place] [address] Dr. Get Whitten CORRECTED WBC Normal 4.0-11.0 [facility] Comment on above: Performed By: #### C MP, HSTROPN, BNP #### [facility] [address] [place] [address] Dr. Get Whitten EOS # 0.00 103/ul Normal 0.00-0.70 [facility] Comment on above: Performed By: #### C MP, HSTROPN, BNP #### [facility] [address] [address] [address] Get Whitten EOS% 0.0 % Critically low 0.9-7.0 [facility] Comment on above: Performed By: #### C MP, HSTROPN, BNP #### [facility] [address] [address] [address] Get Whitten HCT 44.0 % Normal 42.0-54.0 [facility] Comment on above: Performed By: #### C MP, HSTROPN, BNP #### [facility] [address] [address] [address] Get Whitten HGB 15.8 g/dl Normal 14.0-18.0 [facility] Comment on above: Performed By: #### C MP, HSTROPN, BNP #### [facility] [address] [place] [address] Dr. Get Whitten HYPERSEG NEUT 2+ Normal [facility] Comment on above: Performed By: #### C MP, HSTROPN, BNP #### [facility] [address] [place] [address] Dr. Get Whitten LYMPHM # 1.56 103/ul Normal 1.20-3.80 [facility] Comment on above: Performed By: #### C MP, HSTROPN, BNP #### [facility] [address] [address] [address] eGt Whitten LYMPHM% 13.0 % Critically low 20.5-60.0 [facility] Comment on above: Performed By: #### C MP, HSTROPN, BNP #### [facility] [address] [address] [address] Get Whitten MCH 36.2 pg Critically high 25.9-34.0 [facility] Comment on above: Performed By: #### C MP, HSTROPN, BNP #### [facility] [address] [place] [address] Dr. Get Whitten MCHC 35.9 g/dl Critically high 29.9-35.2 [facility] Comment on above: Performed By: #### C MP, HSTROPN, BNP #### [facility] [address] [address] [address] Get Whitten MCV 100.7 fL Critically high 80.0-94.0 [facility] Comment on above: Performed By: #### C MP, HSTROPN, BNP #### [facility] [address] [place] [address] Dr. Get Whitten METAMYELOCYTE # Normal [facility] Comment on above: Performed By: #### C MP, HSTROPN, BNP #### [facility] [address] [place] [address] Dr. Get Whitten METAMYELOCYTE % Normal [facility] Comment on above: Performed By: #### C MP, HSTROPN, BNP #### [facility] [address] [place] [address] Dr. Get Whitten MONOM# 1.08 103/ul Critically high 0.30-0.80 [facility] Comment on above: Performed By: #### C MP, HSTROPN, BNP #### [facility] [address] [place] [address] Dr. Get Whitten MONOM% 9.0 % Normal 1.7-12.0 [facility] Comment on above: Performed By: #### C MP, HSTROPN, BNP #### [facility] [address] [place] [address] Dr. Get Whitten MPV 10.3 fL Normal 9.5-13.5 [facility] Comment on above: Performed By: #### C MP, HSTROPN, BNP #### [facility] [address] [place] [address] Dr. Get Whitten MYELOCYTE # Normal [facility] Comment on above: Performed By: #### C MP, HSTROPN, BNP #### [facility] [address] [place] [address] Dr. Get Whitten MYELOCYTE % Normal [facility] Comment on above: Performed By: #### C MP, HSTROPN, BNP #### [facility] [address] [place] [address] Dr. Get Whitten NRBC Normal [facility] Comment on above: Performed By: #### C MP, HSTROPN, BNP #### [facility] [address] [address] [address] Get Whitten PLT 111 103/ul Critically low 150-450 [facility] Comment on above: Performed By: #### C MP, HSTROPN, BNP #### [facility] [address] [address] [address] Get Whitten RBC 4.37 106/ul Critically low 4.70-6.10 [facility] Comment on above: Performed By: #### C MP, HSTROPN, BNP #### [facility] [address] [place] [address] Dr. Get Whitten RDW 12.4 % Normal 11.0-15.0 [facility] Comment on above: Performed By: #### C MP, HSTROPN, BNP #### [facility] [address] [place] [address] Dr. Get Whitten SEG # 8.88 103/ul Critically high 1.40-6.50 [facility] Comment on above: Performed By: #### C MP, HSTROPN, BNP #### [facility] [address] [place] [address] Dr. Get Whitten SEG % 74.0 % Normal 43.0-75.0 [facility] Comment on above: Performed By: #### C MP, HSTROPN, BNP #### [facility] [address] [place] [address] Dr. Get Whitten WBC 12.0 103/ul Critically high 4.0-11.0 [facility] Comment on above: Performed By: #### C MP, HSTROPN, BNP #### [facility] [address] [place] [address] Dr. Get Whitten CRPon 03-26-2022 CRP [Mass/Vol] mg/L Normal <=1.0 [facility] Comment on above: Performed By: #### C MP, HSTROPN, BNP #### [facility] [address] [place] [address] Dr. Get Whitten Covid-19 PCR (CVDTB)on 03-16 SARS-CoV-2 (COVID-19) RNA ASHLEE+probe Ql (Unsp spec) Detected Critically abnormal NOT DETECTED [facility] Comment on above: Result Comment: This test is not yet approved or cleared by the [place] FDA. When there are no FDA-approved or cleared tests available, and other criteria are met, FDA can make tests available under an emergency access mechanism called an Emergency Use Authorization (EUA). The EUA for this test is supported by the [place] of Health and Human Service's declaration that [...] used). Performed By: #### C VDTBH #### [facility] [address] [place] [address] Dr. Get Whitten LACTATE/LACTIC ACIDon 2021 Lactate [Moles/Vol] 0.4 mmol/L Normal 0.4-1.9 [facility] Comment on above: Performed By: #### C MP, HSTROPN, BNP #### [facility] [address] [place] [address] Dr. Get Whitten NAon 03-26-2022 Sodium [Moles/Vol] 126 mmol/L Critically low 136-145 [facility] Comment on above: Performed By: #### B TECHNICAL SUPPORT AGENT, T7, CMP, TSH #### [facility] [address] [place] [address] Dr. Get Whitten PROF 14(COMP METB)on 022 Albumin [Mass/Vol] 3.6 g/dL Normal 3.4-5.0 [facility] Comment on above: Performed By: #### C MP, HSTROPN, BNP #### [facility] [address] [place] [address] Dr. Get Whitten Albumin/Globulin [Mass ratio] 1.0 {ratio} Normal [facility] Comment on above: Performed By: #### C MP, HSTROPN, BNP #### [facility] [address] [place] [address] Dr. Get Whitten ALP [Catalytic activity/Vol] 49 U/L Normal 46-116 [facility] Comment on above: Performed By: #### C MP, HSTROPN, BNP #### [facility] [address] [place] [address] Dr. Get Whitten ALT [Catalytic activity/Vol] 80 U/L Critically high 16-63 [facility] Comment on above: Performed By: #### C MP, HSTROPN, BNP #### [facility] [address] [place] [address] Dr. Get Whitten Anion gap [Moles/Vol] 16.2 mmol/L Normal [facility] Comment on above: Performed By: #### C MP, HSTROPN, BNP #### [facility] [address] [place] [address] Dr. Get Whitten AST [Catalytic activity/Vol] 42 U/L Critically high 15-37 [facility] Comment on above: Performed By: #### C MP, HSTROPN, BNP #### [facility] [address] [place] [address] Dr. Get Whitten Bilirubin [Mass/Vol] 0.7 mg/dL Normal 0.2-1.0 [facility] Comment on above: Performed By: #### C MP, HSTROPN, BNP #### [facility] [address] [place] [address] Dr. Get Whitten Calcium [Mass/Vol] 8.4 mg/dL Critically low 8.5-10.[address] [facility] Comment on above: Performed By: #### C MP, HSTROPN, BNP #### [facility] [address] [place] [address] Dr. Get Whitten Chloride [Moles/Vol] 91 mmol/L Critically low 98-107 [facility] Comment on above: Performed By: #### C MP, HSTROPN, BNP #### [facility] [address] [address] [address] Get Whitten CO2 [Moles/Vol] 19.8 mmol/L Critically low 21.0-32.0 [facility] Comment on above: Performed By: #### C MP, HSTROPN, BNP #### [facility] [address] [address] [address] Get Whitten Creatinine [Mass/Vol] 1.11 mg/dL Normal 0.70-1.30 [facility] Comment on above: Performed By: #### C MP, HSTROPN, BNP #### [facility] [address] [address] [address] Get Whitten EGFR-AF PALAUAN >60 Normal >=60 [facility] Comment on above: Performed By: #### C MP, HSTROPN, BNP #### [facility] [address] [address] [address] Get Whitten EGFR-NON AF PALAUAN >60 Normal >=60 [facility] Comment on above: Performed By: #### C MP, HSTROPN, BNP #### [facility] [address] [address] [address] Get Whitten Globulin (S) [Mass/Vol] 3.6 g/dL Normal [facility] Comment on above: Performed By: #### C MP, HSTROPN, BNP #### [facility] [address] [address] [address] Get Whitten Glucose [Mass/Vol] 109 mg/dL Critically high 74-106 T [facility] Comment on above: Performed By: #### C MP, HSTROPN, BNP #### [facility] [address] [address] [address] Get Whitten Potassium [Moles/Vol] 4.0 mmol/L Normal 3.5-5.1 [facility] Comment on above: Performed By: #### C MP, HSTROPN, BNP #### [facility] [address] [address] [address] Get Whitten Protein [Mass/Vol] 7.2 g/dL Normal 6.4-8.2 [facility] Comment on above: Performed By: #### C MP HSTROPN, BNP #### [facility] [address] [address] [address] Get Whitten Sodium [Moles/Vol] 123 mmol/L Critically low 136-[address] [facility] Comment on above: Performed By: #### C MP HSTROPN, BNP #### [facility] [address] [address] [address] Get Whitten Urea nitrogen [Mass/Vol] 15.0 mg/dL Normal 7.0-18.0 [facility] Comment on above: Performed By: #### C FILOMENA HSTROPN, BNP #### [facility] [address] [place] [address] Dr. Get Whitten Urea nitrogen/Creatinine [Mass ratio] 13.5 mg/mg Normal [facility] Comment on above: Performed By: #### C FILOMENA HSTROPN, BNP #### [facility] [address] [place] [address] Dr. Get Whitten SPUTUM GRAM STAINon 03-26-20 COMMENTS NO ORGANISMS OBSERVED Normal [facility] Comment on above: Performed By: #### C VDTBH #### [facility] [address] [place] [address] Dr. Get Whitten DIPHTHEROIDS Normal [facility] Comment on above: Performed By: #### C VDTBH #### [facility] [address] [address] [address] Get Whitten EPITHELIALS <[address] [facility] Comment on above: Performed By: #### C VDTBH #### [facility] [address] [address] [address] Get Whitten FUNGAL ELEMENTS Normal [facility] Comment on above: Performed By: #### C VDTBH #### [facility] [address] [place] [address] Dr. Get Whitten GRAM NEG BACILLI Normal [facility] Comment on above: Performed By: #### C VDTBH #### [facility] [address] [place] [address] Dr. Get Whitten GRAM NEG DIPPLOCOCCI Normal [facility] Comment on above: Performed By: #### C VDTBH #### [facility] [address] [place] [address] Dr. Get Whitten GRAM POS BACILLI Normal [facility] Comment on above: Performed By: #### C VDTBH #### [facility] [address] [place] [address] Dr. Get Whitten GRAM POSITIVE COCCI Normal [facility] Comment on above: Performed By: #### C VDTBH #### [facility] [address] [place] [address] Dr. Get Whitten WBC (Bld) [#/Vol] 10*3/uL Normal [facility] Comment on above: Performed By: #### C VDTBH #### [facility] [address] [place] [address] Dr. Get Whitten TROPONIN, HIGH SENSITIVITYon 03-26-2022 HSTROP 19.8 pg/mL Normal 4.0-76.[address] [facility] Comment on above: Result Comment: CUT- OFF POINTS HAVE BEEN ESTABLISHED BASED ON THE FOURTH UNIVERSAL DEFINITIONS OF MYOCARDIAL INFARCTION. THE UPPER REFERENCE LIMIT (URL) OF TROPONIN, DEFINED THE 99TH PERCENTILE OF cTnI DISTRIBUTION IN A REFERENCE POPULATION, HAS BEEN CONFIRMED THE DECISION THRESHOLD FOR MT DIAGNOSIS. Performed By: #### C MP, HSTROPN, BNP #### [facility] [address] [place] [address] Dr. Get Whitten TSHon 03-26-2022 TSH 51.305 uIU/mL Critically high 0.358-3.740 [facility] Comment on above: Performed By: #### C MP, HSTROPN, BNP #### [facility] [address] [place] [address] Dr. Get Whitten XR CHEST 1 Von 03-26-2022 XR CHEST 1 V EXAM: XR CHEST 1 V HISTORY: COUGH COMPARISON: Chest x-ray 03/23/2022 TECHNIQUE: Single frontal view chest x-ray FINDINGS: No lobar consolidation, large pleural effusions, pneumothorax, or acute bony abnormality. Cardiac size is unremarkable. IMPRESSION: No radiographic evidence for acute chest abnormality. Electronically authenticated by: JANKI STEEL Date: 2022-03-26 04:[address] [facility] BNPon 03-23-2022 Natriuretic peptide B (Bld) [Mass/Vol] 385.0 pg/mL Normal <=900.[address] [facility] Comment on above: Performed By: #### C MP, HSTROPN, BNP #### [facility] [address] [address] [address] Get Whitten CBC W MANUAL DIFFon 03-23-20 22 ATYPICAL LYMPH # Normal [facility] Comment on above: Performed By: #### B TECHNICAL SUPPORT AGENT, T7, CMP, TSH #### [facility] [address] [place] [address] Dr. Get Whitten ATYPICAL LYMPH % Normal [facility] Comment on above: Performed By: #### B TECHNICAL SUPPORT AGENT, T7, CMP, TSH #### [facility] [address] [place] [address] Dr. Get Whitten BAND # 0.2 103/ul Normal 0.0-0.[address] [facility] Comment on above: Performed By: #### B TECHNICAL SUPPORT AGENT, T7, CMP, TSH #### [facility] [address] [place] [address] Dr. Get Whitten BAND % 2 % Normal 0-[address] [facility] Comment on above: Performed By: #### B TECHNICAL SUPPORT AGENT, T7, CMP, TSH #### [facility] [address] [place] [address] Dr. Get Whitten BASOM # 0.00 103/ul Normal 0.00-0.[address] [facility] Comment on above: Performed By: #### B TECHNICAL SUPPORT AGENT, T7, CMP, TSH #### [facility] [address] [place] [address] Dr. Get Whitten BASOM % 0.0 % Critically low 0.2-2.0 [facility] Comment on above: Performed By: #### B TECHNICAL SUPPORT AGENT, T7, CMP, TSH #### [facility] [address] [place] [address] Dr. Get Whitten BLAST # Normal [facility] Comment on above: Performed By: #### B TECHNICAL SUPPORT AGENT, T7, CMP, TSH #### [facility] [address] [address] [address] Get Whitten BLAST % Normal [facility] Comment on above: Performed By: #### B TECHNICAL SUPPORT AGENT, T7, CMP, TSH #### [facility] [address] [address] [address] Get Whitten CORRECTED WBC Normal 4.0-11.0 [facility] Comment on above: Performed By: #### B TECHNICAL SUPPORT AGENT, T7, CMP, TSH #### [facility] [address] [address] [address] Get Whitten EOS # 0.00 103/ul Normal 0.00-0.70 [facility] Comment on above: Performed By: #### B TECHNICAL SUPPORT AGENT, T7, CMP, TSH #### [facility] [address] [place] [address] Dr. Get Whitten EOS% 0.0 % Critically low 0.9-7.0 [facility] Comment on above: Performed By: #### B TECHNICAL SUPPORT AGENT, T7, CMP, TSH #### [facility] [address] [address] [address] Get Whitten HCT 45.6 % Normal 42.0-54.0 [facility] Comment on above: Performed By: #### B TECHNICAL SUPPORT AGENT, T7, CMP, TSH #### [facility] [address] [address] [address] Get Whitten HGB 16.3 g/dl Normal 14.0-18.0 [facility] Comment on above: Performed By: #### B TECHNICAL SUPPORT AGENT, T7, CMP, TSH #### [facility] [address] [address] [address] Get Whitten LYMPHM # 0.89 103/ul Critically low 1.20-3.80 [facility] Comment on above: Performed By: #### B TECHNICAL SUPPORT AGENT, T7, CMP, TSH #### [facility] [address] [address] [address] Get Whitten LYMPHM% 9.0 % Critically low 20.5-60.0 [facility] Comment on above: Performed By: #### B TECHNICAL SUPPORT AGENT, T7, CMP, TSH #### [facility] [address] [place] [address] Dr. Get Whitten MCH 36.5 pg Critically high 25.9-34.0 [facility] Comment on above: Performed By: #### B TECHNICAL SUPPORT AGENT, T7, CMP, TSH #### [facility] [address] [place] [address] Dr. Get Whitten MCHC 35.7 g/dl Critically high 29.9-35.2 [facility] Comment on above: Performed By: #### B TECHNICAL SUPPORT AGENT, T7, CMP, TSH #### [facility] [address] [place] [address] Dr. Get Whitten MCV 102.0 fL Critically high 80.0-94.0 [facility] Comment on above: Performed By: #### B TECHNICAL SUPPORT AGENT, T7, CMP, TSH #### [facility] [address] [place] [address] Dr. Get Whitten METAMYELOCYTE # Normal [facility] Comment on above: Performed By: #### B TECHNICAL SUPPORT AGENT, T7, CMP, TSH #### [facility] [address] [place] [address] Dr. Get Whitten METAMYELOCYTE % Normal [facility] Comment on above: Performed By: #### B TECHNICAL SUPPORT AGENT, T7, CMP, TSH #### [facility] [address] [place] [address] Dr. Get Whitten MONOM# 0.89 103/ul Critically high 0.30-0.80 [facility] Comment on above: Performed By: #### B TECHNICAL SUPPORT AGENT, T7, CMP, TSH #### [facility] [address] [place] [address] Dr. Get Whitten MONOM% 9.0 % Normal 1.7-12.0 [facility] Comment on above: Performed By: #### B TECHNICAL SUPPORT AGENT, T7, CMP, TSH #### [facility] [address] [place] [address] Dr. Get Whitten MPV 8.8 fL Critically low 9.5-13.5 [facility] Comment on above: Performed By: #### B TECHNICAL SUPPORT AGENT, T7, CMP, TSH #### [facility] [address] [address] [address] Get Whitten MYELOCYTE # Normal [facility] Comment on above: Performed By: #### B TECHNICAL SUPPORT AGENT, T7, CMP, TSH #### [facility] [address] [address] [address] Get Whitten MYELOCYTE % Normal [facility] Comment on above: Performed By: #### B TECHNICAL SUPPORT AGENT, T7, CMP, TSH #### [facility] [address] [address] [address] Get Whitten NRBC Normal [facility] Comment on above: Performed By: #### B TECHNICAL SUPPORT AGENT, T7, CMP, TSH #### [facility] [address] [place] [address] Dr. Get Whitten PLT 156 103/ul Normal 150-450 [facility] Comment on above: Performed By: #### B TECHNICAL SUPPORT AGENT, T7, CMP, TSH #### [facility] [address] [address] [address] Get Whitten RBC 4.47 106/ul Critically low 4.70-6.10 [facility] Comment on above: Performed By: #### B TECHNICAL SUPPORT AGENT, T7, CMP, TSH #### [facility] [address] [place] [address] Dr. Get Whitten RDW 12.4 % Normal 11.0-15.0 [facility] Comment on above: Performed By: #### B TECHNICAL SUPPORT AGENT, T7, CMP, TSH #### [facility] [address] [place] [address] Dr. Get Whitten SEG # 7.92 103/ul Critically high 1.40-6.50 [facility] Comment on above: Performed By: #### B TECHNICAL SUPPORT AGENT, T7, CMP, TSH #### [facility] [address] [address] [address] Get Whitten SEG % 80.0 % Critically high 43.0-75.0 [facility] Comment on above: Performed By: #### B TECHNICAL SUPPORT AGENT, T7, CMP, TSH #### [facility] [address] [place] [address] Dr. Get Whitten WBC 9.9 103/ul Normal 4.0-11.0 [facility] Comment on above: Performed By: #### B TECHNICAL SUPPORT AGENT, T7, CMP, TSH #### [facility] [address] [place] [address] Dr. Get Whitten PROF 14(COMP METB)on 022 Albumin [Mass/Vol] 3.9 g/dL Normal 3.4-5.0 [facility] Comment on above: Performed By: #### C MP, HSTROPN, BNP #### [facility] [address] [place] [address] Dr. Get Whitten Albumin/Globulin [Mass ratio] 1.1 {ratio} Normal [facility] Comment on above: Performed By: #### C MP, HSTROPN, BNP #### [facility] [address] [place] [address] Dr. Get Whitten ALP [Catalytic activity/Vol] 55 U/L Normal 46-116 [facility] Comment on above: Performed By: #### C MP, HSTROPN, BNP #### [facility] [address] [place] [address] Dr. Get Whitten ALT [Catalytic activity/Vol] 67 U/L Critically high 16-63 [facility] Comment on above: Performed By: #### C MP, HSTROPN, BNP #### [facility] [address] [place] [address] Dr. Get Whitten Anion gap [Moles/Vol] 13.2 mmol/L Normal [facility] Comment on above: Performed By: #### C MP, HSTROPN, BNP #### [facility] [address] [place] [address] Dr. Get Whitten AST [Catalytic activity/Vol] 20 U/L Normal 15-37 [facility] Comment on above: Performed By: #### C MP, HSTROPN, BNP #### [facility] [address] [place] [address] Dr. Get Whitten Bilirubin [Mass/Vol] 0.4 mg/dL Normal 0.2-1.0 [facility] Comment on above: Performed By: #### C MP, HSTROPN, BNP #### [facility] [address] [address] [address] Get Whitten Calcium [Mass/Vol] 8.5 mg/dL Normal 8.5-10.1 [facility] Comment on above: Performed By: #### C MP, HSTROPN, BNP #### [facility] [address] [address] [address] Get Whitten Chloride [Moles/Vol] 93 mmol/L Critically low 98-[address] [facility] Comment on above: Performed By: #### C MP, HSTROPN, BNP #### [facility] [address] [address] [address] Get Whitten CO2 [Moles/Vol] 22.6 mmol/L Normal 21.0-32.0 [facility] Comment on above: Performed By: #### C MP, HSTROPN, BNP #### [facility] [address] [address] [address] Get Whitten Creatinine [Mass/Vol] 1.26 mg/dL Normal 0.70-1.[address] [facility] Comment on above: Performed By: #### C MP, HSTROPN, BNP #### [facility] [address] [address] [address] Get Whitten EGFR-AF PALAUAN >60 Normal >=60 [facility] Comment on above: Performed By: #### C MP, HSTROPN, BNP #### [facility] [address] [address] [address] Get Whitten EGFR-NON AF PALAUAN 59 mL/min/1.73m2 Critically low >=[address] [facility] Comment on above: Performed By: #### C MP, HSTROPN, BNP #### [facility] [address] [address] [address] Get Whitten Globulin (S) [Mass/Vol] 3.5 g/dL Normal [facility] Comment on above: Performed By: #### C MP, HSTROPN, BNP #### [facility] [address] [address] [address] Get Whitten Glucose [Mass/Vol] 144 mg/dL Critically high 74-106 T [facility] Comment on above: Performed By: #### C MP, HSTROPN, BNP #### [facility] [address] [place] [address] Dr. Get Whitten Potassium [Moles/Vol] 3.9 mmol/L Normal 3.5-5.1 [facility] Comment on above: Performed By: #### C MP, HSTROPN, BNP #### [facility] [address] [place] [address] Dr. Get Whitten Protein [Mass/Vol] 7.4 g/dL Normal 6.4-8.2 [facility] Comment on above: Performed By: #### C MP, HSTROPN, BNP #### [facility] [address] [place] [address] Dr. Get Whitten Sodium [Moles/Vol] 125 mmol/L Critically low 136-145 [facility] Comment on above: Performed By: #### C MP, HSTROPN, BNP #### [facility] [address] [place] [address] Dr. Get Whitten Urea nitrogen [Mass/Vol] 14.0 mg/dL Normal 7.0-18.0 [facility] Comment on above: Performed By: #### C MP, HSTROPN, BNP #### [facility] [address] [place] [address] Dr. Get Whitten Urea nitrogen/Creatinine [Mass ratio] 11.1 mg/mg Normal [facility] Comment on above: Performed By: #### C MP, HSTROPN, BNP #### [facility] [address] [place] [address] Dr. Get Whitten TROPONIN, HIGH SENSITIVITYon 03-23-2022 HSTROP 6.6 pg/mL Normal 4.0-76.1 [facility] Comment on above: Result Comment: CUT- OFF POINTS HAVE BEEN ESTABLISHED BASED ON THE FOURTH UNIVERSAL DEFINITIONS OF MYOCARDIAL INFARCTION. THE UPPER REFERENCE LIMIT (URL) OF TROPONIN, DEFINED THE 99TH PERCENTILE OF cTnI DISTRIBUTION IN A REFERENCE POPULATION, HAS BEEN CONFIRMED THE DECISION THRESHOLD FOR MT DIAGNOSIS. Performed By: #### C MP, HSTROPN, BNP #### [facility] [address] [place], [place] [address] Dr. Get Whitten XR CHEST 1 Von [...] SHEN SOSA Date: 2022-03-23 15:[address] [facility] Covid-19 PCR (CVDTBH)on SARS-CoV-2 (COVID-19) RNA ASHLEE+probe Ql (Unsp spec) Detected Critically abnormal NOT DETECTED [facility] Comment on above: Result Comment: This test is not yet approved or cleared by the [place] FDA. When there are no FDA-approved or cleared tests available, and other criteria are met, FDA can make tests available under an emergency access mechanism called an Emergency Use Authorization (EUA). The EUA for this test is supported by the Air Conditioning Specialist of Health and Human Service's declaration that [...] By: #### C MP, HSTROPN, BNP #### [facility] [address] [place] [address] Dr. Get Whitten CBC AUTO DIFFon 01-24-2022 BASO # 0.1 103/ul Normal 0.0-0.1 [facility] Comment on above: Performed By: #### B TECHNICAL SUPPORT AGENT, T7, CMP, TSH #### [facility] [address] [place] [address] Dr. Get Whitten Basophils/100 WBC (Bld) 0.6 % Normal 0.2-2.[address] [facility] Comment on above: Performed By: #### B TECHNICAL SUPPORT AGENT, T7, CMP, TSH #### [facility] [address] [place] [address] Dr. Get Whitten EO # 0.0 103/ul Normal 0.0-0.[address] [facility] Comment on above: Performed By: #### B TECHNICAL SUPPORT AGENT, T7, CMP, TSH #### [facility] [address] [place] [address] Dr. Get Whitten Eosinophils/100 WBC (Bld) 0.1 % Critically low 0.9-7.[address] [facility] Comment on above: Performed By: #### B TECHNICAL SUPPORT AGENT, T7, CMP, TSH #### [facility] [address] [place] [address] Dr. Get Whitten Erythrocyte distribution width (RBC) [Ratio] 13.1 % Normal 11.0-15.0 [facility] Comment on above: Performed By: #### B TECHNICAL SUPPORT AGENT, T7, CMP, TSH #### [facility] [address] [place] [address] Dr. Get Whitten Hematocrit (Bld) [Volume fraction] 41.0 % Critically low 42.0-54.0 [facility] Comment on above: Performed By: #### B TECHNICAL SUPPORT AGENT, T7, CMP, TSH #### [facility] [address] [place] [address] Dr. Get Whitten Hemoglobin (Bld) [Mass/Vol] 14.3 g/dL Normal 14.0-18.0 [facility] Comment on above: Performed By: #### B TECHNICAL SUPPORT AGENT, T7, CMP, TSH #### [facility] [address] [place] [address] Dr. Get Whitten IG # 0.25 10e3/ul Critically high 0.00-0.03 [facility] Comment on above: Performed By: #### B TECHNICAL SUPPORT AGENT, T7, CMP, TSH #### [facility] [address] [place] [address] Dr. Get Whitten IG % 2.3 % Critically high 0.0-0.5 [facility] Comment on above: Performed By: #### B TECHNICAL SUPPORT AGENT, T7, CMP, TSH #### [facility] [address] [place] [address] Dr. Get Whitten LYMPH # 2.4 103/ul Normal 1.2-3.8 [facility] Comment on above: Performed By: #### B TECHNICAL SUPPORT AGENT, T7, CMP, TSH #### [facility] [address] [place] [address] Dr. Get Whitten Lymphocytes/100 WBC (Bld) 21.7 % Normal 20.5-60.0 [facility] Comment on above: Performed By: #### B TECHNICAL SUPPORT AGENT, T7, CMP, TSH #### [facility] [address] [place] [address] Dr. Get Whitten MANUAL DIFF REQ NO Normal [facility] Comment on above: Performed By: #### B TECHNICAL SUPPORT AGENT, T7, CMP, TSH #### [facility] [address] [place] [address] Dr. Get Whitten MCH (RBC) [Entitic mass] 37.0 pg Critically high 25.9-34.0 [facility] Comment on above: Performed By: #### B TECHNICAL SUPPORT AGENT, T7, CMP, TSH #### [facility] [address] [place] [address] Dr. Get Whitten MCHC (RBC) [Mass/Vol] 34.9 g/dL Normal 29.9-35.[address] [facility] Comment on above: Performed By: #### B TECHNICAL SUPPORT AGENT, T7, CMP, TSH #### [facility] [address] [place] [address] Dr. Get Whitten MCV (RBC) [Entitic vol] 105.9 fL Critically high 80.0-94.0 [facility] Comment on above: Result Comment: 1+ m acrocytosis Performed By: #### B TECHNICAL SUPPORT AGENT, T7, CMP, TSH #### [facility] [address] [place] [address] Dr. Get Whitten MONO # 0.8 103/ul Normal 0.3-0.[address] [facility] Comment on above: Performed By: #### B TECHNICAL SUPPORT AGENT, T7, CMP, TSH #### [facility] [address] [place] [address] Dr. Get Whitten Monocytes/100 WBC (Bld) 7.0 % Normal 1.7-12.[address] [facility] Comment on above: Performed By: #### B TECHNICAL SUPPORT AGENT, T7, CMP, TSH #### [facility] [address] [place] [address] Dr. Get Whitten NEUT # 7.5 103/ul Critically high 1.4-6.5 [facility] Comment on above: Performed By: #### B TECHNICAL SUPPORT AGENT, T7, CMP, TSH #### [facility] [address] [place] [address] Dr. Get Whitten Neutrophils/100 WBC (Bld) 68.3 % Normal 43.0-75.[address] [facility] Comment on above: Performed By: #### B TECHNICAL SUPPORT AGENT, T7, CMP, TSH #### [facility] [address] [place] [address] Dr. Get Whitten Platelet mean volume (Bld) [Entitic vol] 8.6 fL Critically low 9.5-13.[address] [facility] Comment on above: Performed By: #### B TECHNICAL SUPPORT AGENT, T7, CMP, TSH #### [facility] [address] [place] [address] Dr. Get Whitten PLT 235 103/ul Normal 150-[address] [facility] Comment on above: Performed By: #### B TECHNICAL SUPPORT AGENT, T7, CMP, TSH #### [facility] [address] [place] [address] Dr. Get Whitten RBC 3.87 106/ul Critically low 4.70-6.10 [facility] Comment on above: Performed By: #### B TECHNICAL SUPPORT AGENT, T7, CMP, TSH #### [facility] [address] [place] [address] Dr. Get Whitten WBC 11.0 103/ul Normal 4.0-11.0 [facility] Comment on above: Performed By: #### B TECHNICAL SUPPORT AGENT, T7, CMP, TSH #### [facility] [address] [place] [address] Dr. Get Whitten POINT OF CARE GLUCOSEon 01-13 Glucose [Mass/Vol] 116 mg/dL Critically high 74-106 T [facility] Comment on above: Performed By: #### C MP #### [facility] [address] [place] [address] Dr. Get Whitten PROF CHEM 8 (BAS METB)on Anion gap [Moles/Vol] 14.2 mmol/L Normal [facility] Comment on above: Performed By: #### B TECHNICAL SUPPORT AGENT, T7, CMP, TSH #### [facility] [address] [place] [address] Dr. Get Whitten Calcium [Mass/Vol] 8.7 mg/dL Normal 8.5-10.1 [facility] Comment on above: Performed By: #### B TECHNICAL SUPPORT AGENT, T7, CMP, TSH #### [facility] [address] [place] [address] Dr. Get Whitten Chloride [Moles/Vol] 99 mmol/L Normal 98-107 [facility] Comment on above: Performed By: #### B TECHNICAL SUPPORT AGENT, T7, CMP, TSH #### [facility] [address] [place] [address] Dr. Get Whitten CO2 [Moles/Vol] 25.1 mmol/L Normal 21.0-32.0 [facility] Comment on above: Performed By: #### B TECHNICAL SUPPORT AGENT, T7, CMP, TSH #### [facility] [address] [place] [address] Dr. Get Whitten Creatinine [Mass/Vol] 1.24 mg/dL Normal 0.70-1.30 [facility] Comment on above: Performed By: #### B TECHNICAL SUPPORT AGENT, T7, CMP, TSH #### [facility] [address] [place] [address] Dr. Get Whitten EGFR-AF PALAUAN >60 Normal >=60 [facility] Comment on above: Performed By: #### B TECHNICAL SUPPORT AGENT, T7, CMP, TSH #### [facility] [address] [address] [address] Get Whitten EGFR-NON AF PALAUAN =60 Normal >=60 [facility] Comment on above: Performed By: #### B TECHNICAL SUPPORT AGENT, T7, CMP, TSH #### [facility] [address] [address] [address] Get Whitten Glucose [Mass/Vol] 122 mg/dL Critically high 74-106 T [facility] Comment on above: Performed By: #### B TECHNICAL SUPPORT AGENT, T7, CMP, TSH #### [facility] [address] [address] [address] Get Whitten Potassium [Moles/Vol] 4.3 mmol/L Normal 3.5-5.1 [facility] Comment on above: Performed By: #### B TECHNICAL SUPPORT AGENT, T7, CMP, TSH #### [facility] [address] [address] [address] Get Whitten Sodium [Moles/Vol] 134 mmol/L Critically low 136-145 [facility] Comment on above: Performed By: #### B TECHNICAL SUPPORT AGENT, T7, CMP, TSH #### [facility] [address] [address] [address] Get Whitten Urea nitrogen [Mass/Vol] 7.0 mg/dL Normal 7.0-18.0 [facility] Comment on above: Performed By: #### B TECHNICAL SUPPORT AGENT, T7, CMP, TSH #### [facility] [address] [address] [address] Get Whitten Urea nitrogen/Creatinine [Mass ratio] 5.6 mg/mg Normal [facility] Comment on above: Performed By: #### B TECHNICAL SUPPORT AGENT, T7, CMP, TSH #### [facility] [address] [address] [address] Get Whitten TROPONIN, HIGH SENSITIVITYon 01-24-2022 HSTROP 5.1 pg/mL Normal 4.0-76.1 [facility] Comment on above: Result Comment: CUT- OFF POINTS HAVE BEEN ESTABLISHED BASED ON THE FOURTH UNIVERSAL DEFINITIONS OF MYOCARDIAL INFARCTION. THE UPPER REFERENCE LIMIT (URL) OF TROPONIN, DEFINED THE 99TH PERCENTILE OF cTnI DISTRIBUTION IN A REFERENCE POPULATION, HAS BEEN CONFIRMED THE DECISION THRESHOLD FOR MT DIAGNOSIS. Performed By: #### B TECHNICAL SUPPORT AGENT, T7, CMP, TSH #### [facility] [address] [place] [address] Dr. Get Whitten XR CHEST 1 Von [...] CESAR PARKER Date: 2022-01-24 11:[address] [facility] BNPon 01-09-2022 Natriuretic peptide B (Bld) [Mass/Vol] 83.0 pg/mL Normal <=900.[address] [facility] Comment on above: Performed By: #### C MP, HSTROPN, BNP #### [facility] [address] [place] [address] Dr. Get Whitten CBC AUTO DIFFon 01-09-2022 BASO # 0.0 103/ul Normal 0.0-0.[address] [facility] Comment on above: Performed By: #### C MP #### [facility] [address] [place] [address] Dr. Get Whitten Basophils/100 WBC (Bld) 0.4 % Normal 0.2-2.[address] [facility] Comment on above: Performed By: #### C MP #### [facility] [address] [place] [address] Dr. Get Whitten EO # 0.0 103/ul Normal 0.0-0.[address] [facility] Comment on above: Performed By: #### C MP #### [facility] [address] [place] [address] Dr. Get Whitten Eosinophils/100 WBC (Bld) 0.2 % Critically low 0.9-7.0 [facility] Comment on above: Performed By: #### C MP #### [facility] [address] [place] [address] Dr. Get Whitten Erythrocyte distribution width (RBC) [Ratio] 13.1 % Normal 11.0-15.0 [facility] Comment on above: Performed By: #### C MP #### [facility] [address] [place] [address] Dr. Get Whitten Hematocrit (Bld) [Volume fraction] 41.5 % Critically low 42.0-54.0 [facility] Comment on above: Performed By: #### C MP #### [facility] [address] [place] [address] Dr. Get Whitten Hemoglobin (Bld) [Mass/Vol] 14.4 g/dL Normal 14.0-18.0 [facility] Comment on above: Performed By: #### C MP #### [facility] [address] [place] [address] Dr. Get Whitten IG # 0.12 10e3/ul Critically high 0.00-0.03 [facility] Comment on above: Performed By: #### C MP #### [facility] [address] [place] [address] Dr. Get Whitten IG % 1.1 % Critically high 0.0-0.5 [facility] Comment on above: Performed By: #### C MP #### [facility] [address] [place] [address] Dr. Get Whitten LYMPH # 2.3 103/ul Normal 1.2-3.8 [facility] Comment on above: Performed By: #### C MP #### [facility] [address] [place] [address] Dr. Get Whitten Lymphocytes/100 WBC (Bld) 20.9 % Normal 20.5-60.0 [facility] Comment on above: Performed By: #### C MP #### [facility] [address] [place] [address] Dr. Get Whitten MANUAL DIFF REQ NO Normal [facility] Comment on above: Performed By: #### C MP #### [facility] [address] [address] [address] Get Whitten MCH (RBC) [Entitic mass] 37.1 pg Critically high 25.9-34.0 [facility] Comment on above: Performed By: #### C MP #### [facility] [address] [place] [address] Dr. Get Whitten MCHC (RBC) [Mass/Vol] 34.7 g/dL Normal 29.9-35.[address] [facility] Comment on above: Performed By: #### C MP #### [facility] [address] [place] [address] Dr. Get Whitten MCV (RBC) [Entitic vol] 107.0 fL Critically high 80.0-94.0 [facility] Comment on above: Result Comment: 1+ m acrocytosis Performed By: #### C MP #### [facility] [address] [place] [address] Dr. Get Whitten MONO # 0.7 103/ul Normal 0.3-0.8 [facility] Comment on above: Performed By: #### C MP #### [facility] [address] [place] [address] Dr. Get Whitten Monocytes/100 WBC (Bld) 6.3 % Normal 1.7-12.0 [facility] Comment on above: Performed By: #### C MP #### [facility] [address] [place] [address] Dr. Get Whitten NEUT # 7.7 103/ul Critically high 1.4-6.5 [facility] Comment on above: Performed By: #### C MP #### [facility] [address] [place] [address] Dr. Get Whitten Neutrophils/100 WBC (Bld) 71.1 % Normal 43.0-75.[address] [facility] Comment on above: Performed By: #### C MP #### [facility] [address] [place] [address] Dr. Get Whitten Platelet mean volume (Bld) [Entitic vol] 8.6 fL Critically low 9.5-13.5 [facility] Comment on above: Performed By: #### C MP #### [facility] [address] [place] [address] Dr. Get Whitten PLT 238 103/ul Normal 150-[address] [facility] Comment on above: Performed By: #### C MP #### [facility] [address] [address] [address] Get Whitten RBC 3.88 106/ul Critically low 4.70-6.10 [facility] Comment on above: Performed By: #### C MP #### [facility] [address] [address] [address] Get Whitten WBC 10.8 103/ul Normal 4.0-11.0 [facility] Comment on above: Performed By: #### C MP #### [facility] [address] [place] [address] Dr. Get Whitten Covid-19 PCR ([facility])on 12-15 SARS-CoV-2 (COVID-19) RNA ASHLEE+probe Ql (Unsp spec) Not detected Normal NOT DETECTED [facility] Comment on above: Result Comment: When [...] for this test is supported by the [place] of Health and Human Service's declaration that [...] By: #### C MP, HSTROPN, BNP #### [facility] [address] [place] [address] Dr. Get Whitten PROF 14(COMP METB)on 022 Albumin [Mass/Vol] 4.0 g/dL Normal 3.4-5.0 [facility] Comment on above: Performed By: #### C MP, HSTROPN, BNP #### [facility] [address] [place] [address] Dr. Get Whitten Albumin/Globulin [Mass ratio] 1.0 {ratio} Normal [facility] Comment on above: Performed By: #### C MP, HSTROPN, BNP #### [facility] [address] [place] [address] Dr. Get Whitten ALP [Catalytic activity/Vol] 90 U/L Normal 46-116 [facility] Comment on above: Performed By: #### C MP, HSTROPN, BNP #### [facility] [address] [place] [address] Dr. Get Whitten ALT [Catalytic activity/Vol] 27 U/L Normal 16-63 [facility] Comment on above: Performed By: #### C MP, HSTROPN, BNP #### [facility] [address] [place] [address] Dr. Get Whitten Anion gap [Moles/Vol] 12.6 mmol/L Normal [facility] Comment on above: Performed By: #### C MP, HSTROPN, BNP #### [facility] [address] [place] [address] Dr. Get Whitten AST [Catalytic activity/Vol] 16 U/L Normal 15-37 [facility] Comment on above: Performed By: #### C MP, HSTROPN, BNP #### [facility] [address] [place] [address] Dr. Get Whitten Bilirubin [Mass/Vol] 0.4 mg/dL Normal 0.2-1.0 [facility] Comment on above: Performed By: #### C MP, HSTROPN, BNP #### [facility] [address] [place] [address] Dr. Get Whitten Calcium [Mass/Vol] 8.4 mg/dL Critically low 8.5-10.[address] [facility] Comment on above: Performed By: #### C MP, HSTROPN, BNP #### [facility] [address] [place] [address] Dr. Get Whitten Chloride [Moles/Vol] 100 mmol/L Normal 98-107 [facility] Comment on above: Performed By: #### C MP, HSTROPN, BNP #### [facility] [address] [place] [address] Dr. Get Whitten CO2 [Moles/Vol] 25.1 mmol/L Normal 21.0-32.0 [facility] Comment on above: Performed By: #### C MP, HSTROPN, BNP #### [facility] [address] [place] [address] Dr. Get Whitten Creatinine [Mass/Vol] 1.20 mg/dL Normal 0.70-1.30 [facility] Comment on above: Performed By: #### C MP, HSTROPN, BNP #### [facility] [address] [place] [address] Dr. Get Whitten EGFR-AF PALAUAN >60 Normal >=60 [facility] Comment on above: Performed By: #### C MP, HSTROPN, BNP #### [facility] [address] [place] [address] Dr. Get Whitten EGFR-NON AF PALAUAN >60 Normal >=60 [facility] Comment on above: Performed By: #### C MP, HSTROPN, BNP #### [facility] [address] [place] [address] Dr. Get Whitten Globulin (S) [Mass/Vol] 4.0 g/dL Normal [facility] Comment on above: Performed By: #### C MP, HSTROPN, BNP #### [facility] [address] [place] [address] Dr. Get Whitten Glucose [Mass/Vol] 110 mg/dL Critically high 74-106 T [facility] Comment on above: Performed By: #### C MP, HSTROPN, BNP #### [facility] [address] [place] [address] Dr. Get Whitten Potassium [Moles/Vol] 4.7 mmol/L Normal 3.5-5.1 [facility] Comment on above: Performed By: #### C MP, HSTROPN, BNP #### [facility] [address] [place] [address] Dr. Get Whitten Protein [Mass/Vol] 8.0 g/dL Normal 6.4-8.2 [facility] Comment on above: Performed By: #### C MP, HSTROPN, BNP #### [facility] [address] [place] [address] Dr. Get Whitten Sodium [Moles/Vol] 133 mmol/L Critically low 136-145 [facility] Comment on above: Performed By: #### C MP, HSTROPN, BNP #### [facility] [address] [place] [address] Dr. Get Whitten Urea nitrogen [Mass/Vol] 7.0 mg/dL Normal 7.0-18.0 [facility] Comment on above: Performed By: #### C MP, HSTROPN, BNP #### [facility] [address] [place] [address] Dr. Get Whitten Urea nitrogen/Creatinine [Mass ratio] 5.8 mg/mg Normal [facility] Comment on above: Performed By: #### C MP, HSTROPN, BNP #### [facility] [address] [place] [address] Dr. Get Whitten PROTIMEon 01-09-2022 INR Coag (PPP) [Relative time] {INR} Normal [facility] Comment on above: Performed By: #### C VDTBH #### [facility] [address] [place] [address] Dr. Get Whitten INR GUIDELINES SEE BELOW Normal [facility] Comment on above: Result Comment: JORGE RED INR: 2.0 - 3.0 CONDITIONS NOT LISTED BELOW 2.5 - 3.5 FOR PROSTHETIC HEART VALVE REPLACEMENT 2.5 - 3.5 RECURRENT THROMBOSIS Performed By: #### C VDTBH #### [facility] [address] [address] [address] Get Whitten PT Coag (PPP) [Time] 9.8 s Normal 9.0-11.6 [facility] Comment on above: Performed By: #### C VDTBH #### [facility] [address] [address] [address] Get Whitten PTTon 01-09-2022 aPTT Coag (Bld) [Time] 28.5 s Normal 22.3-36.2 [facility] Comment on above: Performed By: #### C MP #### [facility] [address] [address] [address] Get Whitten TROPONIN, HIGH SENSITIVITYon 01-09-2022 HSTROP 4.1 pg/mL Normal 4.0-76.1 [facility] Comment on above: Result Comment: CUT- OFF POINTS HAVE BEEN ESTABLISHED BASED ON THE FOURTH UNIVERSAL DEFINITIONS OF MYOCARDIAL INFARCTION. THE UPPER REFERENCE LIMIT (URL) OF TROPONIN, DEFINED THE 99TH PERCENTILE OF cTnI DISTRIBUTION IN A REFERENCE POPULATION, HAS BEEN CONFIRMED THE DECISION THRESHOLD FOR MT DIAGNOSIS. Performed By: #### C MP, HSTROPN, BNP #### [facility] [address] [place] [address] Dr. Get Whitten XR CHEST 1 Von [...] CESAR BUTCHER Date: 2022-01-09 18:[address] [facility] Coding Summary.on 12-18-2018 Coding Summary. 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, left eye SECONDARY: PYMT PROC APC STAT DESCRIPTION DOCTOR NAME DATE [id number] T Discission of secondary Darnell Rick [...] [place] Date Saved: 12/18/2018 10:51 am Normal [facility] Encounters Encounter Date Encounter Type Care Provider Facility Start: 07-17-2023 End: 07-17-2023 ambulatory [facility] Start: 05-28-2023 Evaluation and management of inpatient [facility] Start: 05-28-2023 Evaluation and management of inpatient [facility] Start: 05-28-2023 End: 05-28-2023 Evaluation and management of inpatient [facility] Start: 05-18-2023 End: 05-18-2023 ambulatory [facility] Start: 04-24-2023 End: 04-25-2023 Evaluation and management of inpatient LIDIA PASCUAL [facility] Start: 04-21-2023 Evaluation and management of inpatient VKNG RAYMUNDO [facility] Start: 04-20-2023 End: 04-24-2023 Evaluation and management of inpatient ION SIMS [facility] Start: 04-20-2023 Emergency department patient visit [facility] Start: 04-20-2023 End: 04-20-2023 Emergency department patient visit [facility] Start: 01-08-2023 End: 01-09-2023 ambulatory Hernandez Wylie MD Facility:[facility] Start: 12-25-2022 End: 12-26-2022 ambulatory Hernandez Wylie [...] Category Payer Private Health Insurance 1965 Unknown [id number] 2.16.84 [id number] 1965 Unknown [id number] .16.84 0.1.126098.3.579.2.593 1965 Unknown [id number] 2.16.84 0.1.256432.3.579.2.593 1965 Unknown [id number] 2.16.84 0.1.373808.3.579.2.593 1965 Unknown [id number] 2.16.84 0.1.701359.3.579.2.593 1965 Unknown [id number] 2.16.84 0.1.962428.3.579.2.593 1965 Unknown [id number] 2.16.84 0.1.027422.3.579.2.593 1965 Unknown [id number] 2.16.84 0.1.974545.3.579.2.593 1965 Unknown [id number] 2.16.84 0.1.169369.3.579.2.593 1965 Unknown [id number] 2.16.84 0.1.467062.3.579.2.593 1965 Unknown [id number] 2.16.84 0.1.500479.3.579.2.593 1965 Unknown [id number] 2.16.84 0.1.857619.3.579.2.593 1965 Unknown [id number] 2.16.84 0.1.984112.3.579.2.593 1965 Unknown [id number] 2.16.84 0.1.271310.3.579.2.593 1965 Unknown [id number] 2.16.84 0.1.843856.3.579.2.593 1965 Unknown [id number] 2.16. 840.1.319927.3.579.2.196 1965 Unknown [id number] 2.16. 840.1.649472.3.579.2.196 1959 Medicare [id number] 1959 Private Health Insurance [id number] 1959 Self-pay [id number] Clinical Notes 10-24-2022 to 07-17-2023 Note Date & Type Note Facility 07-17-2023 Note Patient here for [facility]. C/o B/L LE edema, R>L. Says it's [...] All other systems reviewed and are negative. [facility] 07-17-2023 Note [place] Electrophysiology Consult Note Reason for visit: hospital follow up, syncope 07/17/22: Here for hospital follow up Was admited again for syncope at [facility] 05/27 Had stress test which was negative [...] of PFO He was just seen at [facility] for syncope / CP, he was suppose [...] Last Year: No Allergies: Allergies Allergen Reactions [place] Anaphylaxis Penicillins Angioedema Weight: 101kg Visit Vitals [...] 0.5 mg by mouth in the morning. jcmrwysohgz-ahghymham-mqezcviv (Trelegy Ellipta) 100-62.5-25 mcg blister with device [...] mg) by mouth (more content not included)... [facility] 05-28-2023 Note Hospital Medicine Discharge Summary [...] CMP, Mag, phosph, EKG and telemetry. Admiting [facility] pt to the stepdown unit and consult [facility] cardiology team. We will follow-up on the [...] 100-62.5-25 mcg blister with device Generic drug: nypitueyvjc-mzlqkgqfp-hafmeswm STOP taking these medications hydrocortisone 10 mg [...] Hammonds MD Hospital Medicine 05/28/2023 2:37 PM [facility] 05-28-2023 Note 05/28/23 1009 Admission Assessment [...] Yes Does the patient have a case assembler assigned to them through their insurance? Yes [...] link and activate MyChart? MyChart already active [facility] 05-28-2023 Note . Hospital Medicine History and Physical 05/27/2023 11:38 PM THE HOSPITALIST TEAM PREFERS TO USE [email or web address] CHAT FOR COMMUNICATION 7AM-7PM. IF I DO NOT RESPOND WITHIN 15 MINUTES, PLEASE PAGE ME/CALL THROUGH THE LATHMAKER. FROM 7PM-7AM, PLEASE PAGE [phone](COVR) Chief Complaint Syncope. History of Present Illness [...] CMP, Mag, phosph, EKG and telemetry. Admiting [facility] pt to the stepdown unit and consult [facility] cardiology team. We will follow-up on the [...] Date Noted NSTEMI (non-ST elevated myocardial infarction) ([facility]) 05/27/2023 Adrenal insufficiency ([facility]) 04/24/2023 Acute gout 04/20/2023 Hypertension 04/20/2023 Allergic [...] this hospital stay by a member of [facility]. Past Medical History No past medical history on file. Past Surgical History No past surgical history on file. Social History Social History Socioeconomic History Marital status: (more content not included)... [facility] 05-18-2023 Note [place] Electrophysiology Consult Note Reason for visit: hospital follow up HPI: Rehan Poole is a 58 y.o. year old with past medical history of hypertension, migraine headaches, seizure, neuropathy, history of PFO He was just seen at [facility] for syncope / CP, he was suppose [...] Last Year: No Allergies: Allergies Allergen Reactions [place] Anaphylaxis Penicillins Angioedema Weight: 104kg Visit Vitals [...] 0.5 mg by mouth in the morning. vldtibfoggy-zqidckokl-feexfymi (Trelegy Ellipta) 100-62.5-25 mcg blister with device [...] normal curvature, no (more content not included)... [facility] 04-24-2023 Note Patient given discha rge instructions and education provided regarding meds and appts. EKG called to educate patient about cardiac event monitor instructions. Patient waiting for imeds to deliver. [facility] notified of patient discharge. [facility] 04-23-2023 Note Hospital Medicine Daily Progress Note - 04/23/2023 11:22 AM; Room: [facility] Admission: 04/20/2023 4:06 PM; Length of stay: 2 days THE HOSPITALIST TEAM PREFERS TO USE [email or web address] CHAT FOR COMMUNICATION 7AM-7PM. IF I DO NOT RESPOND WITHIN 15 MINUTES, PLEASE PAGE ME/CALL THROUGH THE LATHMAKER. FROM 7PM-7AM, PLEASE PAGE [phone](COVR) Code Status: Full Code Discharge Destination: home [...] CORTISOL 8.3 04/22/2023 No results found for: [id number], IRON, TIBC, C3, C4, JADA, CANCA, ASO, PSA, CEA, CA125, CA199, AFP, CA153 Imaging Transthoracic echo (TTE) complete 1 [facility] [address] [place] [address] [phone] (fax) Echocardiogram-[facility] Name: REHAN (more content not included)... [facility] 04-22-2023 Note Hospital Medicine Daily Progress Note - 04/22/2023 3:22 PM; Room: 3186/3186-01 Admission: 04/20/2023 4:06 PM; Length of stay: 1 days THE HOSPITALIST TEAM PREFERS TO USE [email or web address] CHAT FOR COMMUNICATION 7AM-7PM. IF I DO NOT RESPOND WITHIN 15 MINUTES, PLEASE PAGE ME/CALL THROUGH THE [employer]. FROM 7PM-7AM, PLEASE PAGE [phone](COVR) Code Status: Full Code Discharge Destination: home [...] unable to tolerate treadmill stress test. - [facility] does not provide inpatient endocrinology consultation. [facility] and [facility] were called to transfer patient for inpatient endocrinology evaluation. They both reported they do not provide that service. I called [facility] to transfer patient and they reported that they are tight on beds and would be unable to except transfer, although they do have inpatient endocrinology consultation. They recommended they speak with their on-call resin remover at [facility] ([phone]) for teleconsultation. I spoke with Dr. Solis [...] oral, Daily topiram (more content not included)... [facility] 04-21-2023 Note Hospital Medicine Daily Progress Note - 04/21/2023 4:00 PM; Room: [facility] Admission: 04/20/2023 4:06 PM; Length of stay: 0 days THE HOSPITALIST TEAM PREFERS TO USE [email or web address] CHAT FOR COMMUNICATION 7AM-7PM. IF I DO NOT RESPOND WITHIN 15 MINUTES, PLEASE PAGE ME/CALL THROUGH THE [employer]ATH[employer]ER. FROM 7PM-7AM, PLEASE PAGE [phone](COVR) Code Status: Full Code Discharge Destination: home [...] 1.8 (L) 04/21/2023 No results found for: [id number], IRON, TIBC, C3, C4, JADA, CANCA, ASO, PSA, CEA, CA125, CA199, AFP, CA153 Imaging ECG 12 lead Normal sinus rhythm Low voltage QRS ST & T wave (more content not included)... [facility] 04-21-2023 Note ---- Attestation signed by [...] Value Ventricular Rate 59 Atrial Rate 59 [place] Interval 132 QRS DURATION 86 QT Interval 430 QTC CALCULATION(BAZETT) 425 P [place] 43 R-[place] -12 T Wave [place] 73 Impression Sinus bradycardia Low voltage QRS [...] questions. Helen Calixto PGY-2, Internal medicine resident [facility] 04-20-2023 Note Hospital Medicine History and Physical 04/20/2023 7:28 PM THE HOSPITALIST TEAM PREFERS TO USE [employer] FOR COMMUNICATION 7AM-7PM. IF I DO NOT RESPOND WITHIN 15 MINUTES, PLEASE PAGE ME/CALL THROUGH THE [employer]. FROM 7PM-7AM, PLEASE PAGE [phone](COVR) Chief Complaint No chief complaint on file. History of Present Illness Rehan Poole is an 58 y.o. male who came from home with past medical history of hypertension, migraine headaches, seizure, neuropathy, history of PFO presented to [facility] as a transfer from [facility] ER because of new onset of [...] II arrhythmia and patient was transferred to [facility] for possible pacemaker placement. Here, repeated EKG [...] it is exertional. Blood work and the [facility] ER showed hyponatremia with a sodium [...] Diagnosis Date Noted Hyponatremia 04/20/2023 COPD exacerbation ([facility]) 04/20/2023 Acute gout 04/20/2023 Hypertension 04/20/2023 Allergic [...] will discontinue azithromycin (more content not included)... [facility] 11-27-2022 Note PROCEDURE: XR ANKLE LT 2V HISTORY: Unspecified fall , left ankle pain COMPARISON: None. FINDINGS: BONES:No fracture, acute abnormality, or significant arthropathy. SOFT TISSUES:Mild anterior lateral soft tissue swelling. EFFUSION:None visible. OTHER: Negative. IMPRESSION: 1. No acute bone abnormality. Electronically authenticated by: SHEN SOSA Date: 2022-11-27 11:27 [facility] 10-24-2022 Note PROCEDURE: XR HIP LT 2 3V W PELVIS HISTORY: Idiopathic osteoarthritis ; acute left hip pain after falling COMPARISON: None. FINDINGS: BONES:No fracture, acute abnormality, or significant arthropathy. SOFT TISSUES:No visible soft tissue swelling. EFFUSION:None visible. OTHER: Negative. IMPRESSION: 1. No acute bone abnormality or significant degenerative joint disease. Electronically authenticated by: SHEN SOSA Date: 2022-10-24 09:51 [facility] Summary Purpose Family History No Family History [...] section and content) DATE CREATED AUTHOR 02/15/2019 [facility] DATE CREATED AUTHOR AUTHOR'S ORGANIZ ATION 12/22/2022 [facility] DATE CREATED AUTHOR AUTHOR'S ORGANIZ ATION 03/06/2023 [facility] DATE CREATED AUTHOR AUTHOR'S ORGANIZ ATION 08/11/2023 [facility] FOR RECORDS PERTAINING TO PATIENTS WHO [...] BE BASED ON THE PRIMARY CLINICAL RECORDS. [facility] [employer] [facility]. provides no warranty or guarantee of the accuracy or completeness of information in this document.
[2023-09-12 20:24] VITALS: BP 148/100; PULSE 52; PULSE 58; PULSE 60; RESP 12; RESP 14; RESP 15; TEMP 36.4; TEMP 36.6; O2SAT 100; BMI 29.5
[2023-09-12] MEDS: ENOXAPARIN SODIUM 40 MG/0.4 ML SYRINGE SUBQ (21:21)
[2023-09-12] MEDS: FAMOTIDINE/PF 20 MG/2 ML VIAL IV (21:21)
[2023-09-12] MEDS: 0.9 % SODIUM CHLORIDE 1,000 ML 100 ML IV (21:21)
[2023-09-12] MEDS: ACETAMINOPHEN 325 MG TABLET 650 MG PO (21:22)
[2023-09-12] MEDS: ATORVASTATIN CALCIUM 10 MG TABLET PO (21:38)
[2023-09-12] MEDS: RANOLAZINE 500 MG TAB.ER.12H PO (21:38)
[2023-09-12] MEDS: TOPIRAMATE 100 MG TABLET 200 MG PO (21:38)
[2023-09-12] MEDS: TIZANIDINE HCL 4 MG TABLET PO (21:39)
[2023-09-12] MEDS: METOPROLOL TARTRATE 50 MG TABLET PO (21:39)
[2023-09-12 22:00] VITALS: PULSE 50
[2023-09-12 23:07] VITALS: BP 108/72; PULSE 52; TEMP 37.1; O2SAT 97
[2023-09-12 23:20] LABS: Troponin I High Sensitivity <4.0 pg/mL (4.0-76.1)
[2023-09-13] VITALS (8 sets, daily range): BP systolic 112; BP diastolic 69; PULSE 44–50; RESP 12–15; O2SAT 100
[2023-09-13 05:19] LABS: Adenovirus NOT DETECTED (NOT DETECTE); Bordetella parapertussis NOT DETECTED (NOT DETECTE); Coronavirus 229E NOT DETECTED (NOT DETECTE); Coronavirus HKU1 NOT DETECTED (NOT DETECTE); Coronavirus NL63 NOT DETECTED (NOT DETECTE); Coronavirus OC43 NOT DETECTED (NOT DETECTE); Human Metapneumovirus NOT DETECTED (NOT DETECTE); Human Rhinovirus/Enterovirus NOT DETECTED (NOT DETECTE); Influenza A NOT DETECTED (NOT DETECTE); Influenza B NOT DETECTED (NOT DETECTE); Mycoplasma pneumoniae NOT DETECTED (NOT DETECTE); Parainfluenza Virus 1 NOT DETECTED (NOT DETECTE); Parainfluenza Virus 2 NOT DETECTED (NOT DETECTE); Parainfluenza Virus 3 NOT DETECTED (NOT DETECTE); Parainfluenza Virus 4 NOT DETECTED (NOT DETECTE); Respiratory Syncytial Virus NOT DETECTED (NOT DETECTE); SARS-CoV-2 NOT DETECTED (NOT DETECTE)
[2023-09-13 05:22] LABS: Basophils Absolute Auto 0.1 10^3/uL (0.0-0.1); Basophils Percent Auto 0.9 % (0.2-2.0); Eosinophils Percent Auto 0.4 % (0.9-7.0); Hematocrit 42.4 % (42.0-54.0); Hemoglobin 13.7 g/dL (14.0-18.0); Immature Granulocytes Abs Auto 0.05 10^3/uL (0.00-0.03); Immature Granulocytes Pct Auto 0.7 % (0.0-0.5); Lymphocytes Absolute Auto 3.1 10^3/uL (1.2-3.8); Lymphocytes Percent Auto 44.7 % (20.5-60.0); Mean Corpuscular HGB Conc 32.3 g/dL (29.9-35.2); Mean Corpuscular Hemoglobin 30.6 pg (25.9-34.0); Mean Corpuscular Volume 94.9 fL (80.0-94.0); Monocytes Absolute Auto 0.5 10^3/uL (0.3-0.8); Monocytes Percent Auto 6.7 % (1.7-12.0); Neutrophils Absolute Auto 3.3 10^3/uL (1.4-6.5); Neutrophils Percent Auto 46.6 % (43.0-75.0); Platelet Count 237 10^3/uL (150-450); Red Blood Count 4.47 10^6/uL (4.70-6.10); Red Cell Distribution Width 16.4 % (11.0-15.0)
[2023-09-13 05:41] LABS: INR 0.96; Prothrombin Time 10.2 sec (9.0-11.6)
[2023-09-13 06:14] LABS: Alanine Aminotransferase 11 U/L (16-63); Albumin Globulin Ratio 0.8; Alkaline Phosphatase 77 U/L (46-116); Anion Gap 13.9; Aspartate Amino Transferase 16 U/L (15-37); BUN Creatinine Ratio 6.8; Bilirubin Total 0.4 mg/dL (0.2-1.0); Calcium 7.8 mg/dL (8.5-10.1); Carbon Dioxide 19.8 mmol/L (21.0-32.0); Chloride 99 mmol/L (98-107); Estimated GFR (African America >60 (>=60); Estimated GFR (Non-African Ame >60 (>=60); Globulin 3.8 g/dL; Glucose 91 mg/dL (74-106); Potassium 3.7 mmol/L (3.5-5.1); Sodium 129 mmol/L (136-145); Total Protein 6.8 g/dL (6.4-8.2); Troponin I High Sensitivity <4.0 pg/mL (4.0-76.1)
[2023-09-13] MEDS: 0.9 % SODIUM CHLORIDE 1,000 ML 100 ML IV (06:40)
--- NOTE | 2023-09-13 07:57 | CA_ITS ---
Patient Name: ELENA TREJO MR#: [id number] : 1965 Exam Date: 09/13/2023 Ordering Doctor: DR Patrice Guadalupe . ECHOCARDIOGRAM REPORT PROCEDURE: CA ECHO DOPPLER COMPLETE INDICATIONS: cp COMPARISON: None. DESCRIPTION: COMPLETE ECHOCARDIOGRAM Real-time transthoracic echocardiography with 2D, M-mode, spectral and color flow Doppler performed. QUALITY: Technical quality was adequate. LEFT VENTRICLE: Normal chamber size. Borderline left ventricular hypertrophy. LV EF: Global left ventricular systolic function is difficult to assess but appears preserved; visually estimated ejection fraction is 55 to 60%. Unable to assess regional wall motion abnormalities. DIASTOLIC: Normal diastolic function ATRIAL SEPTUM: Inadequately seen. LEFT ATRIUM: Normal chamber size. RIGHT ATRIUM: Normal chamber size. RIGHT VENTRICLE: Normal chamber size. Normal right ventricular systolic function. TRICUSPID VALVE: Normal mobility and thickness. No stenosis with trivial regurgitation. No evidence of pulmonary hypertension. RVSP 17mmHg MITRAL VALVE: Normal mobility and thickness. No evidence of mitral valve stenosis. There is no mitral annular calcification. No mitral regurgitation. AORTIC VALVE: Grossly normal. Normal leaflet mobility. No evidence of aortic valve stenosis. No aortic regurgitation. AORTIC ROOT: Normal diameter and appearance. PULMONIC VALVE: Normal thickness and mobility. No stenosis. No regurgitation. PERICARDIUM: Anterior free space; trivial effusion vs fat pad IVC: Collapses with inspirations. Normal size. CONCLUSION: 1. Global left ventricular systolic function is difficult to assess but appears preserved; visually estimated ejection fraction is 55 to 60% 2. Normal right ventricular size and systolic function 3. Normal diastolic function 4. Borderline increased left ventricular wall thickness 5. Valves are poorly seen; no significant valvular abnormalities 6. Anterior free space; trivial effusion versus fat pad Adult Echocardiography Procedure Report Left Ventricle LVEDD (3.7 - 5.6 cm): 5.17 cm LVESD (2.2 - 4.0 cm): 2.03 cm LVIVS thickness (0.6 - 1.2 cm): 1.16 cm LVPW thickness (0.5 - 1.0 cm): 1.09 cm e': 0.09 m/s E - e': 4.99 LVOT Max Gradient: 1.92 mm[Hg] LVOT Area (cm2): 0.69 m/s Peak Velocity (LVOT): 0.69 m/s Mean Velocity (LVOT): 0.49 m/s LVOT Diameter 2.23 cm Left Atrium LA Volume Index (2D A2C): 24.84 ml/m2 Left Atrium Systolic Dimension: 3.66 cm Mitral Valve MV E to A Ratio: 0.85 Mitral Valve A-Wave Peak Velocity: 0.51 m/s Mitral Valve E-Wave Peak Velocity: 0.43 m/s Right Ventricle RV Internal Diastolic Dimension: 3.14 cm Aorta AO Root Diam: 2.96 cm Aortic Valve AoV Area (Peak Dangelo): 2.94 cm2, 2.94 cm2 AoV Area (VTI): 3.19 cm2, 3.19 cm2 Peak Velocity(Antegrade Flow): 0.92 m/s Peak Gradient(Antegrade Flow): 3.39 mm[Hg] Mean Velocity(Antegrade Flow): 0.65 m/s Mean Gradient(Antegrade Flow): 1.88 mm[Hg] Velocity Time Integral: 21.80 cm Tricuspid Valve Peak Velocity (Regurgitant Flow): 1.70 m/s, 1.85 m/s Pulmonic Valve Peak Velocity: 0.73 m/s Peak Gradient: 2.11 mm[Hg] Right Atrium Right Atrium Systolic Pressure: 24.47 ml, 24.47 ml Dictated by: John Sauceda M.D. on 09/13/2023 at 11:06 Approved by: John Sauceda M.D. on 09/13/2023 at 11:12
--- NOTE | 2023-09-13 07:58 | P.HP_ITS ---
H&P: HPI History of Present Illness Chief complaint: Palpitations, Abnormal Labs Narrative: Patient presented to the emergency room with chest pain. Acute onset. More pleuritic in nature. Initial troponins all negative. BNP negative. Patient was admitted for rule out myocardial ischemia. When I saw the patient in the intensive care unit, he was resting comfortably, he does have some chest pain when he was moving in the bed. That was the same chest pain that brought him in. Also in ER found to have hyponatremia and severe hypothyroidism. Patient also describes increasing cough recently. Review of Systems ROS Status of ROS 10 or more systems reviewed and unremark able except as noted in history and below [facility] Medical History (Updated 09/12/23 @ 19:32 by GISSELLE Cordova) Bilateral edema of lower extremity ?R60.0 - Localized edema (ICD-10) Hypertension ?I10 - Essential (primary) hypertension (ICD-10) Hyperlipidemia ?E78.5 - Hyperlipidemia, unspecified (ICD-10) Migraine ?G43.909 - Migraine, unspecified, not intractable, without status migrainosus (ICD-10) Enlarged prostate ?N40.0 - Benign prostatic hyperplasia without lower urinary tract symptoms (ICD-10) Upper back pain ?M54.9 - Dorsalgia, unspecified (ICD-10) Back pain ?M54.9 - Dorsalgia, unspecified (ICD-10) Neck pain ?M54.2 - Cervicalgia (ICD-10) Seizure ?R56.9 - Unspecified convulsions (ICD-10) Numbness and tingling ?R20.0 - Anesthesia of skin (ICD-10) ?R20.2 - Paresthesia of skin (ICD-10) Heartburn ?R12 - Heartburn (ICD-10) Acid reflux ?K21.9 - Gastro-esophageal reflux disease without esophagitis (ICD-10) Hypothyroid ?E03.9 - Hypothyroidism, unspecified (ICD-10) Emphysema of lung ?J43.9 - Emphysema, unspecified (ICD-10) Surgical History H/O lumbosacral spine surgery ?Z98.890 - Other specified postprocedural states (ICD-10) H/O cervical spine surgery ?Z98.890 - Other specified postprocedural states (ICD-10) H/O heart surgery ?Z98.890 - Other specified postprocedural states (ICD-10) Social History Smoking status: Current every day smoker Highest level of school completed/degree received: some college, no degree Do you think of yourself as: straight/heterosexual Gender Identity: male Meds Home Medications and Allergies Home Medications Medication Instructions Recorded Confirmed Type metoprolol tartrate 50 mg tablet 50 mg PO BID 12/24/22 09/12/23 History aspirin 81 mg chewable tablet 162 mg PO DAILY 12/25/22 09/12/23 History (Aspirin Childrens) atorvastatin 10 mg tablet 10 mg PO QPM 05/25/23 09/12/23 History tizanidine 4 mg tablet 4 mg PO QPM 05/25/23 09/12/23 History isosorbide mononitrate 30 mg 30 mg PO QAM 07/21/23 09/12/23 History tablet,extended release 24 hr ranolazine 500 mg tablet,extended 500 mg PO Q12H 07/21/23 09/12/23 History release,12 hr topiramate 100 mg tablet 200 mg PO BEDTIME 07/21/23 09/12/23 History diphenhydramine HCl 25 mg tablet 50 mg PO .hs 09/12/23 09/12/23 History (Allergy) melatonin 12 mg tablet 24 mg PO .hs 09/12/23 09/12/23 History levofloxacin 500 mg tablet 500 mg PO DAILY 7 days #7 tabs 09/13/23 Rx levothyroxine 100 mcg capsule 100 mcg PO DAILY #30 caps 09/13/23 Rx liothyronine 5 mcg tablet 10 mcg (2 x 5 mcg) PO DAILY #60 09/13/23 Rx tabs prednisone 20 mg tablet 20 mg PO BID 5 days #10 tabs 09/13/23 Rx Allergies Allergy/AdvReac Type Severity Reaction Status Date / Time Penicillins Allergy Severe Verified 06/21/23 01:46 strawbery Allergy Uncoded 06/21/23 01:46 Exam Constitutional Vital Signs, click to edit/add: Last Vital Signs Temp 98.7 F 09/12/23 23:07 Pulse 44 L 09/13/23 06:00 Resp 15 09/13/23 04:00 BP 112/69 09/13/23 03:05 Pulse Ox 100 09/13/23 03:05 O2 Del Method Room Air 09/13/23 03:05 Documenting provider has reviewed patient's vital signs: yes Common normals: no apparent distress Chest Common normals: inspection of chest normal (Left-sided chest wall tenderness, reproducing his chest pain) Respiratory Common normals: normal respiratory effort and no retractions Effort & inspection: no respiratory distress Auscultation: wheezes Cardio Common normals: regular rhythm and no murmurs Rate: bradycardic Results Labs Labs: Short CBC 09/12/23 09/13/23 Range/Units 17:33 04:07 WBC 9.0 7.0 (4.0-11.0) 10^3/uL Hgb 14.8 13.7 L (14.0-18.0) g/dL Hct 44.8 42.4 (42.0-54.0) % Plt Count 249 237 (150-450) 10^3/uL BMP 09/12/23 09/13/23 17:33 04:07 Sodium 123 L* 129 L Potassium 3.8 3.7 Chloride 93 L 99 Carbon Dioxide 19.5 L 19.8 L BUN 7.0 8.0 Creatinine 1.17 1.18 Glucose 91 91 Calcium 8.5 7.8 L Liver Function 09/12/23 09/13/23 Range/Units 17:33 04:07 Total Bilirubin 0.4 0.4 (0.2-1.0) mg/dL AST 21 16 (15-37) U/L ALT 12 L 11 L (16-63) U/L Alkaline Phosphatase 93 77 (46-116) U/L Albumin 3.7 3.0 L (3.4-5.0) g/dL Urine 09/12/23 Range/Units 19:10 Urine Color Lt. yellow (YELLOW) Urine Clarity Clear (CLEAR) Urine pH 6.0 (5.0-9.0) Ur Specific [place] 1.015 (1.005-1.025) Urine Protein Negative (NEG/TRACE) mg/dL Urine Glucose (UA) Negative (NEGATIVE) mg/dL Assessment and Plan Assessment and Plan (1) Chest pain: (2) Acute hyponatremia: (3) Muscle strain of right thigh: (4) Hypertension: (5) Hyperlipidemia: (6) Hypothyroid: (7) Emphysema of lung: Plan Bradycardia, uncontrolled hypertension, chest pain on admission-cardiac markers are negative, check echocardiogram to complete workup. Hyponatremia-patient has a history of this in the past has not been taking his sodium tablets as consistently. Improved currently with IV fluids. Continue to monitor. Severe hypothyroidism-patient states he thought he was taking his medication but that seems unlikely with the degree of hypothyroidism. Give 1 dose of IV Synthroid. Restart home medications tomorrow if ends up spending another day. Mild anemia this morning, normal on admission, possibly delusional Moderate protein calorie malnutrition-discussed diet supplementation at home Mild acute exacerbation of COPD-1 dose of Decadron to help with chest wall pain may improve that. Start aerosol treatments. Likely discharge home later today on antibiotics Uncontrolled hypertension-improved currently. Continue to monitor may need to adjust medications as an outpatient Patient with a better than 50% chance of being discharged home later today, will make patient observation status in the intensive care unit due to chest pain and hospital protocol. Echocardiogram with significant changes, will change patient to inpatient status as his medical treatment that is necessary will span 2 midnights
--- NOTE | 2023-09-13 07:58 | P.DS_ITS ---
DS: Providers Provider Date of admission: 09/12/23 20:03 Primary care physician: Patrice Guadalupe MD Consults: 09/12/23 19:30 Consult to Cardiology Routine Reason for consultation: chest pain Has provider been notified: Yes 09/13/23 07:51 Consult to Pharmacy Routine Consulting Provider: Elizabeth Weiss Reason for consultation: review pharm data for thyroid meds Has provider been notified: No DS: Diagnosis Discharge Diagnosis (1) Acute hyponatremia: (2) Chest pain: (3) Hypertension: (4) Hypothyroid: DS: Summary Hospital Course Hospital Course: Patient admitted with chest pain, ruled out for myocardial infarction, on exam the pain was more reproducible and likely related to acute exacerbation of his COPD as he did have an increased cough and wheeze. Echocardiogram shows a good ejection fraction, sodium also low on admission that is improving, severe h ypothyroidism given 1 IV dose, will start patient back up on oral medications at discharge, patient medically stable for discharge. Time Spent with Patient Time attestation: Total time spent providing and/or coordinating discharge services: Exam Constitutional Vital Signs, click to edit/add: Last Vital Signs Temp 98.7 F 09/12/23 23:07 Pulse 44 L 09/13/23 06:00 Resp 15 09/13/23 04:00 BP 112/69 09/13/23 03:05 Pulse Ox 100 09/13/23 03:05 O2 Del Method Room Air 09/13/23 03:05 Documenting provider has reviewed patient's vital signs: yes Common normals: no apparent distress Chest Common normals: inspection of chest normal (Left-sided chest wall tenderness, reproducing his chest pain) Respiratory Common normals: normal respiratory effort and no retractions Effort & inspection: no respiratory distress Auscultation: wheezes Cardio Common normals: regular rhythm and no murmurs Rate: bradycardic DS: Data Data Completed and Pending Labs on day of discharge: Labs from last 24 hours 09/13/23 09/13/23 09/12/23 04:08 04:07 22:57 WBC 7.0 RBC 4.47 L Hgb 13.7 L Hct 42.4 MCV 94.9 H MCH 30.6 MCHC 32.3 RDW 16.4 H Plt Count 237 MPV 10.0 Neut % (Auto) 46.6 Lymph % (Auto) 44.7 [place] % (Auto) 6.7 Eos % (Auto) 0.4 L Baso % (Auto) 0.9 Neut # (Auto) 3.3 Lymph # (Auto) 3.1 [place] # (Auto) 0.5 Eos # (Auto) 0.0 Baso # (Auto) 0.1 Abs Immat Gran (auto) 0.05 H Imm/Tot Granulo (auto) 0.7 H PT 10.2 INR 0.96 Sodium 129 L Potassium 3.7 Chloride 99 Carbon Dioxide 19.8 L Anion Gap 13.9 BUN 8.0 Creatinine 1.18 Est GFR ( Amer) >60 Est GFR (Non-Af Amer) >60 BUN/Creatinine Ratio 6.8 Glucose 91 Lactate Calcium 7.8 L Magnesium Total Bilirubin 0.4 AST 16 ALT 11 L Alkaline Phosphatase 77 Troponin I High Sens <4.0 L <4.0 L NT-Pro-B Natriuret Pep 236.0 Total Protein 6.8 Albumin 3.0 L Globulin 3.8 Albumin/Globulin Ratio 0.8 TSH Free T4 Free T3 Urine Color Urine Clarity Urine pH Ur Specific [place] Urine Protein Urine Glucose (UA) Urine Ketones Urine Occult Blood Urine Nitrite Urine Bilirubin Urine Urobilinogen Ur Leukocyte Esterase Ur Random Sodium Adenovirus (PCR) Not detected C. pneumoniae DNA (PCR) Not detected Coronavirus Type OC43 Not detected Coronavirus Type HKU1 Not detected Coronavirus Type 229E Not detected Coronavirus Type NL63 Not detected Human Metapneumovir PCR Not detected M. pneumoniae (PCR) Not detected Parainfluenza PCR Not detected Parainfluenza 2 (PCR) Not detected Parainfluenza 3 (PCR) Not detected Parainfluenza 4 (PCR) Not detected RSV (RT-PCR) Not detected Entero/Rhino (PCR) Not detected SARS-CoV-2 (PCR) Not detected Bordetella pertussis (PCR) Not detected B parapertussis DNA PCR Not detected Influenza Type A (PCR) Not detected Influenza Type B (PCR) Not detected 09/12/23 09/12/23 09/12/23 19:14 19:10 17:53 WBC RBC Hgb Hct MCV MCH MCHC RDW Plt Count MPV Neut % (Auto) Lymph % (Auto) [place] % (Auto) Eos % (Auto) Baso % (Auto) Neut # (Auto) Lymph # (Auto) [place] # (Auto) Eos # (Auto) Baso # (Auto) Abs Immat Gran (auto) Imm/Tot Granulo (auto) PT 9.9 INR 0.93 Sodium Potassium Chloride Carbon Dioxide Anion Gap BUN Creatinine Est GFR ( Amer) Est GFR (Non-Af Amer) BUN/Creatinine Ratio Glucose Lactate Calcium Magnesium Total Bilirubin AST ALT Alkaline Phosphatase Troponin I High Sens 4.9 NT-Pro-B Natriuret Pep Total Protein Albumin Globulin Albumin/Globulin Ratio TSH Free T4 Free T3 Urine Color Lt. yellow Urine Clarity Clear Urine pH 6.0 Ur Specific [place] 1.015 Urine Protein Negative Urine Glucose (UA) Negative Urine Ketones Trace A Urine Occult Blood Negative Urine Nitrite Negative Urine Bilirubin Negative Urine Urobilinogen 0.2 Ur Leukocyte Esterase Negative Ur Random Sodium 76 Adenovirus (PCR) C. pneumoniae DNA (PCR) Coronavirus Type OC43 Coronavirus Type HKU1 Coronavirus Type 229E Coronavirus Type NL63 Human Metapneumovir PCR M. pneumoniae (PCR) Parainfluenza PCR Parainfluenza 2 (PCR) Parainfluenza 3 (PCR) Parainfluenza 4 (PCR) RSV (RT-PCR) Entero/Rhino (PCR) SARS-CoV-2 (PCR) Bordetella pertussis (PCR) B parapertussis DNA PCR Influenza Type A (PCR) Influenza Type B (PCR) 09/12/23 17:33 WBC 9.0 RBC 4.78 Hgb 14.8 Hct 44.8 MCV 93.7 MCH 31.0 MCHC 33.0 RDW 16.2 H Plt Count 249 MPV 9.0 L Neut % (Auto) 51.8 Lymph % (Auto) 41.8 [place] % (Auto) 4.5 Eos % (Auto) 0.7 L Baso % (Auto) 0.8 Neut # (Auto) 4.7 Lymph # (Auto) 3.8 [place] # (Auto) 0.4 Eos # (Auto) 0.1 Baso # (Auto) 0.1 Abs Immat Gran (auto) 0.04 H Imm/Tot Granulo (auto) 0.4 PT INR Sodium 123 L* Potassium 3.8 Chloride 93 L Carbon Dioxide 19.5 L Anion Gap 14.3 BUN 7.0 Creatinine 1.17 Est GFR ( Amer) >60 Est GFR (Non-Af Amer) >60 BUN/Creatinine Ratio 6.0 Glucose 91 Lactate 0.8 Calcium 8.5 Magnesium 2.2 Total Bilirubin 0.4 AST 21 ALT 12 L Alkaline Phosphatase 93 Troponin I High Sens 4.4 NT-Pro-B Natriuret Pep 162.0 Total Protein 8.0 Albumin 3.7 Globulin 4.3 Albumin/Globulin Ratio 0.9 TSH 92.657 H Free T4 0.16 L Free T3 <0.50 L Urine Color Urine Clarity Urine pH Ur Specific [place] Urine Protein Urine Glucose (UA) Urine Ketones Urine Occult Blood Urine Nitrite Urine Bilirubin Urine Urobilinogen Ur Leukocyte Esterase Ur Random Sodium Adenovirus (PCR) C. pneumoniae DNA (PCR) Coronavirus Type OC43 Coronavirus Type HKU1 Coronavirus Type 229E Coronavirus Type NL63 Human Metapneumovir PCR M. pneumoniae (PCR) Parainfluenza PCR Parainfluenza 2 (PCR) Parainfluenza 3 (PCR) Parainfluenza 4 (PCR) RSV (RT-PCR) Entero/Rhino (PCR) SARS-CoV-2 (PCR) Bordetella pertussis (PCR) B parapertussis DNA PCR Influenza Type A (PCR) Influenza Type B (PCR) Discharge Plan Discharge Disposition: Home, Self-Care Condition: Good Discharge Medications: New levothyroxine 100 mcg capsule 100 mcg PO DAILY Qty: 30 11RF liothyronine 5 mcg tablet 10 mcg PO DAILY Qty: 60 11RF levofloxacin 500 mg tablet 500 mg PO DAILY 7 Days Qty: 7 0RF prednisone 20 mg tablet 20 mg PO BID 5 Days Qty: 10 0RF Continued metoprolol tartrate 50 mg tablet 50 mg PO BID atorvastatin 10 mg tablet 10 mg PO QPM tizanidine 4 mg tablet 4 mg PO QPM topiramate 100 mg tablet 200 mg PO BEDTIME diphenhydramine HCl [Allergy] 25 mg tablet 50 mg PO .hs melatonin 12 mg tablet 24 mg PO .hs aspirin [Aspirin Childrens] 81 mg tablet,chewable 162 mg PO DAILY isosorbide mononitrate 30 mg tablet extended release 24 hr 30 mg PO QAM ranolazine 500 mg tablet extended release 12 hr 500 mg PO Q12H Patient Instructions: Levothyroxine (By mouth) (Levothroid, Levoxyl, Synthroid, Tirosint), Liothyronine (By mouth) (Cytomel) Forms: Portal Instructions
[2023-09-13] MEDS: FAMOTIDINE/PF 20 MG/2 ML VIAL IV (08:31)
[2023-09-13] MEDS: ENOXAPARIN SODIUM 40 MG/0.4 ML SYRINGE SUBQ (08:31)
[2023-09-13] MEDS: SODIUM CHLORIDE IV (08:32)
[2023-09-13] MEDS: LEVOTHYROXINE SODIUM IV (08:32)
[2023-09-13] MEDS: METOPROLOL TARTRATE 50 MG TABLET PO (08:33)
[2023-09-13] MEDS: ISOSORBIDE MONONITRATE 30 MG TAB.ER.24H PO (08:33)
[2023-09-13] MEDS: RANOLAZINE 500 MG TAB.ER.12H PO (08:33)
[2023-09-13] MEDS: ASPIRIN 81 MG TAB.CHEW 162 MG PO (08:33)
--- NOTE | 2023-09-13 09:00 | CM.NOTE ---
Medicare Outpatient Observation Notice discussed with pt, pt verbalizes understanding and signs paper. Original given to pt and copy placed on pt's chart.
[2023-09-13] MEDS: DEXAMETHASONE SOD PHOS 10 MG/ML VIAL IV (09:16)
[2023-09-13] MEDS: KETOROLAC TROMETHAMINE 30 MG/ML VIAL IVP (09:16)
--- NOTE | 2023-09-13 11:03 | PC.NURSE ---
pt up in room, gait steady with cane. pt dressed self. meds returned to pt that were locked in drawer. discharge instructions given to pt. pt verbalized understanding. taken to exit via wheelchair, discharged to in private vehicle.
[2023-09-16 16:07] LABS: Osmolality, Urine 222 mOsmol/kg (.)
--- NOTE | 2023-09-18 15:34 | CM.DCFOLLOWU ---
Person spoke with: patient How are you feeling? well How is your pain? no pain Did you understand your discharge instructions? yes, returned to ED and they adjusted meds Do you have any questions about your discharge instructions? no Were you given any prescriptions at discharge? yes Were you able to get your prescriptions filled? yes Do you understand how to take your medications as ordered? yes Do you have any questions about your follow up appointment and do you plan to keep your follow up appointment? no questions, reviewed follow up date with PCP and pt thought it was Sunday09/21/23, on discharge paperwork it said 09/19/23 @ 1:45pm, he is going to call Dr. Guadalupe's office and verify Is there anything else that you would like to discuss? no Questions/Comments/Concerns/Other: N/A
== END 2023-09-13 11:10 | disposition home or self-care (01) ==
LOC: ER 19:32 → ICU 20:09
PROVIDERS: Nurse Practitioner Acute Care; Physician Assistant; Admitting Provider Family Medicine; Emergency Provider Emergency Medicine; PCP Family Medicine; Visit Provider Family Medicine
DX: R07.9 Chest pain, unspecified (principal); E87.1 Hypo-osmolality and hyponatremia; R00.1 Bradycardia, unspecified; I10 Essential (primary) hypertension; E03.9 Hypothyroidism, unspecified; E78.5 Hyperlipidemia, unspecified; N40.0 Benign prostatic hyperplasia without lower urinary tract symptoms; D64.9 Anemia, unspecified; E44.0 Moderate protein-calorie malnutrition; K21.9 Gastro-esophageal reflux disease without esophagitis; J43.9 Emphysema, unspecified; Z68.29 Body mass index [BMI] 29.0-29.9, adult; F17.210 Nicotine dependence, cigarettes, uncomplicated; Z79.890 Hormone replacement therapy; Z79.82 Long term (current) use of aspirin; Z79.899 Other long term (current) drug therapy; Z98.890 Other specified postprocedural states; Z20.822 Contact with and (suspected) exposure to COVID-19
CPT/HCPCS: 0202U; 36415; 71045; 80053; 81003; 83605; 83735; 83880; 83935; 84300; 84439; 84443; 84481; 84484; 85025; 85610; 93005; 93306; 93356; 96372; 96374; 96375; 96376; 99285; G0378; J1100

== ENCOUNTER 2023-09-16 18:40 | Emergency (ER) | payer OTHER, MEDICARE, SELFPAY ==
[2023-09-16] VITALS (10 sets, daily range): BP systolic 140–174; BP diastolic 90–95; PULSE 67–89; RESP 13–23; TEMP 37; O2SAT 94–97; BMI 29.4
--- NOTE | 2023-09-16 18:50 | ED.GENADUL1 ---
Documented by User: Derrell Kendall MD 09/16/23 18:53 HPI - General Adult General Chief complaint: Weakness Stated complaint: WEAKNESS Time Seen by Provider: 09/16/23 18:43 Source: patient Mode of arrival: Wheelchair Limitations: no limitations History of Present Illness HPI narrative: The patient is here with his for ongoing and seemingly worsening fatigue lack of energy malaise. He was just recently admitted to the hospital in the last several days and stayed overnight. I have not reviewed this chart yet but he says he had low sodium and his thyroid tests were abnormal. Since he went home he just has no energy. He is not running a fever at home. He has not had shakes chills or rigors. He denies any type of discomfort heaviness or squeezing. He denies any shortness of breath. He says the swelling in his legs is much better. He says he just feels like his lab tests are abnormal again and does not have any specific complaint except what is noted above here. His Vitals: Here noted with blood pressure 174/92 pulse is regular at 78 pulse oximetry 97%. He has not had any vomiting or diarrhea since he went home. No trauma falls or injury. Related Data Home Medications Medication Instructions Recorded Confirmed metoprolol tartrate 50 mg tablet 50 mg PO BID 12/24/22 09/12/23 aspirin 81 mg chewable tablet 162 mg PO DAILY 12/25/22 09/12/23 (Aspirin Childrens) atorvastatin 10 mg tablet 10 mg PO QPM 05/25/23 09/12/23 tizanidine 4 mg tablet 4 mg PO QPM 05/25/23 09/12/23 isosorbide mononitrate 30 mg 30 mg PO QAM 07/21/23 09/12/23 tablet,extended release 24 hr ranolazine 500 mg tablet,extended 500 mg PO Q12H 07/21/23 09/12/23 release,12 hr topiramate 100 mg tablet 200 mg PO BEDTIME 07/21/23 09/12/23 diphenhydramine HCl 25 mg tablet 50 mg PO .hs 09/12/23 09/12/23 (Allergy) melatonin 12 mg tablet 24 mg PO .hs 09/12/23 09/12/23 Previous Rx's Medication Instructions Recorded levofloxacin 500 mg tablet 500 mg PO DAILY 7 days #7 tabs 09/13/23 levothyroxine 100 mcg capsule 100 mcg PO DAILY #30 caps 09/13/23 liothyronine 5 mcg tablet 10 mcg (2 x 5 mcg) PO DAILY #60 09/13/23 tabs prednisone 20 mg tablet 20 mg PO BID 5 days #10 tabs 09/13/23 Allergies Allergy/AdvReac Type Severity Reaction Status Date / Time Penicillins Allergy Severe Verified 06/21/23 01:46 strawbery Allergy Uncoded 06/21/23 01:46 [facility] Medical History (Updated 09/16/23 @ 20:44 by Erika Gramajo MD) Bilateral edema of lower extremity ?R60.0 - Localized edema (ICD-10) Hypertension ?I10 - Essential (primary) hypertension (ICD-10) Hyperlipidemia ?E78.5 - Hyperlipidemia, unspecified (ICD-10) Migraine ?G43.909 - Migraine, unspecified, not intractable, without status migrainosus (ICD-10) Enlarged prostate ?N40.0 - Benign prostatic hyperplasia without lower urinary tract symptoms (ICD-10) Upper back pain ?M54.9 - Dorsalgia, unspecified (ICD-10) Back pain ?M54.9 - Dorsalgia, unspecified (ICD-10) Neck pain ?M54.2 - Cervicalgia (ICD-10) Seizure ?R56.9 - Unspecified convulsions (ICD-10) Numbness and tingling ?R20.0 - Anesthesia of skin (ICD-10) ?R20.2 - Paresthesia of skin (ICD-10) Heartburn ?R12 - Heartburn (ICD-10) Acid reflux ?K21.9 - Gastro-esophageal reflux disease without esophagitis (ICD-10) Hypothyroid ?E03.9 - Hypothyroidism, unspecified (ICD-10) Emphysema of lung ?J43.9 - Emphysema, unspecified (ICD-10) Surgical History H/O cervical spine surgery ?Z98.890 - Other specified postprocedural states (ICD-10) H/O heart surgery ?Z98.890 - Other specified postprocedural states (ICD-10) H/O lumbosacral spine surgery ?Z98.890 - Other specified postprocedural states (ICD-10) Social History Smoking status: Former smoker Highest level of school completed/degree received: some college, no degree Do you think of yourself as: straight/heterosexual Gender Identity: male Exam Narrative Exam Narrative: 58-year-old male here with feeling of malaise and fatigue. His vital signs are noted. He is awake alert good historian he is not confused he is not encephalopathic. He has no headache he does not have any neck pain. His neck is soft and supple. Cervical range of motion is not restricted. His lungs were clear with no wheeze rales or rhonchi. Heart rate and rhythm are normal. Does not have any chest pain or discomfort heaviness or squeezing are all negative at this time. He does not have a loop recorder in at this time, he had 1 earlier but does not know the results. Abdomen is benign with no guarding no pain no discomfort. He has a wrap on his right thigh says he has a groin strain. Examining his lower extremities has got good perfusion the skin is warm and dry good pulses no edema at this time. Neurological examination orientation cranial nerves gross motor examination are normal with no evidence of a [employer] event at this time. His symptoms are rather nonspecific but may in fact be related to his previous condition. Screening laboratory work test will be done and he will be turned over to Dr. Erika Gramajo at the change of shift today Constitutional Vital Signs, click to edit/add: Last Vital Signs Temp 98.6 F 09/16/23 18:45 Pulse 78 09/16/23 18:45 Resp 18 09/16/23 18:45 BP 174/92 H 09/16/23 18:45 Pulse Ox 97 09/16/23 19:12 O2 Del Method Room Air 09/16/23 19:12 Course Vital Signs Vital signs: Vital Signs Temperature 98.6 F 09/16/23 18:45 Pulse Rate 78 09/16/23 18:45 Respiratory Rate 18 09/16/23 18:45 Blood Pressure 174/92 H 09/16/23 18:45 Pulse Oximetry 97 09/16/23 18:45 Oxygen Delivery Method Room Air 09/16/23 18:45 Temperature 98.6 F 09/16/23 18:45 Pulse Rate 78 09/16/23 18:45 Respiratory Rate 18 09/16/23 18:45 Blood Pressure 174/92 H 09/16/23 18:45 Pulse Oximetry 97 09/16/23 19:12 Oxygen Delivery Method Room Air 09/16/23 19:12 Medical Decision Making Lab Data Labs: Lab Results 09/16/23 09/16/23 Range/Units 19:00 19:49 WBC 9.7 (4.0-11.0) 10^3/uL RBC 4.50 L (4.70-6.10) 10^6/uL Hgb 13.9 L (14.0-18.0) g/dL Hct 42.4 (42.0-54.0) % MCV 94.2 H (80.0-94.0) fL MCH 30.9 (25.9-34.0) pg MCHC 32.8 (29.9-35.2) g/dL RDW 17.2 H (11.0-15.0) % Plt Count 268 (150-450) 10^3/uL MPV 8.8 L (9.5-13.5) fL Neut % (Auto) 63.0 (43.0-75.0) % Lymph % (Auto) 30.3 (20.5-60.0) % Jennings % (Auto) 4.5 (1.7-12.0) % Eos % (Auto) 1.4 (0.9-7.0) % Baso % (Auto) 0.2 (0.2-2.0) % Neut # (Auto) 6.1 (1.4-6.5) 10^3/uL Lymph # (Auto) 3.0 (1.2-3.8) 10^3/uL Jennings # (Auto) 0.4 (0.3-0.8) 10^3/uL Eos # (Auto) 0.1 (0.0-0.7) 10^3/uL Baso # (Auto) 0.0 (0.0-0.1) 10^3/uL Abs Immat Gran (auto) 0.06 H (0.00-0.03) 10^3/uL Imm/Tot Granulo (auto) 0.6 H (0.0-0.5) % Sodium 133 L (136-145) mmol/L Potassium 3.7 (3.5-5.1) mmol/L Chloride 97 L (98-107) mmol/L Carbon Dioxide 22.4 (21.0-32.0) mmol/L Anion Gap 17.3 BUN 8.0 (7.0-18.0) mg/dL Creatinine 1.08 (0.70-1.30) mg/dL Est GFR ( Amer) >60 (>=60) Est GFR (Non-Af Amer) >60 (>=60) BUN/Creatinine Ratio 7.4 Glucose 120 H (74-106) mg/dL Calcium 8.7 (8.5-10.1) mg/dL Total Bilirubin 0.3 (0.2-1.0) mg/dL AST 16 (15-37) U/L ALT 15 L (16-63) U/L Alkaline Phosphatase 74 (46-116) U/L Troponin I High Sens <4.0 L (4.0-76.1) pg/mL Total Protein 8.0 (6.4-8.2) g/dL Albumin 3.7 (3.4-5.0) g/dL Globulin 4.3 g/dL Albumin/Globulin Ratio 0.9 TSH 54.251 H (0.358-3.740) uIU/mL Urine Color Lt. yellow (YELLOW) Urine Clarity Clear (CLEAR) Urine pH 6.5 (5.0-9.0) Ur Specific Kelly <=1.005 A (1.005-1.025) Urine Protein Negative (NEG/TRACE) mg/dL Urine Glucose (UA) Negative (NEGATIVE) mg/dL Urine Ketones Negative (NEGATIVE) mg/dL Urine Occult Blood Negative (NEGATIVE) Urine Nitrite Negative (NEGATIVE) Urine Bilirubin Negative (NEGATIVE) Urine Urobilinogen 0.2 (0.2-1.0) EU/dL Ur Leukocyte Esterase Negative (NEGATIVE) Urine RBC None seen (0-2) #/HPF Urine WBC None seen (NONE SEEN) #/HPF Ur Squamous Epith Cells None seen (NONE/RARE) #/LPF Urine Crystals None seen (None Seen) #/HPF Urine Bacteria None seen (NONE SEEN) #/HPF Urine Casts None seen (NONE SEEN) #/LPF Urine Mucus None seen (NONE SEEN) Influenza Type A Ag Negative Influenza Type B Ag Negative SARS-CoV-2 Ag (CV2AG) Negative (NEGATIVE) Discharge Plan Discharge Chief Complaint: Weakness Clinical Impression: Generalized weakness, Hypothyroidism Patient Disposition: Home, Self-Care Time of Disposition Decision: 20:44 Condition: Good Prescriptions / Home Meds: No Action metoprolol tartrate 50 mg tablet 50 mg PO BID atorvastatin 10 mg tablet 10 mg PO QPM tizanidine 4 mg tablet 4 mg PO QPM topiramate 100 mg tablet 200 mg PO BEDTIME diphenhydramine HCl [Allergy] 25 mg tablet 50 mg PO .hs melatonin 12 mg tablet 24 mg PO .hs levothyroxine 100 mcg capsule 100 mcg PO DAILY Qty: 30 11RF liothyronine 5 mcg tablet 10 mcg PO DAILY Qty: 60 11RF levofloxacin 500 mg tablet 500 mg PO DAILY 7 Days Qty: 7 0RF prednisone 20 mg tablet 20 mg PO BID 5 Days Qty: 10 0RF aspirin [Aspirin Childrens] 81 mg tablet,chewable 162 mg PO DAILY isosorbide mononitrate 30 mg tablet extended release 24 hr 30 mg PO QAM ranolazine 500 mg tablet extended release 12 hr 500 mg PO Q12H Instructions: Hypothyroidism (ED), Weakness (ED) Referrals: Patrice Guadalupe MD [Primary Care Provider] - 1 week Stand Alone Forms: Portal Instructions Documented by User: Erika Gramajo MD 09/16/23 20:44 HPI - General Adult General Chief complaint: Weakness Stated complaint: WEAKNESS Time Seen by Provider: 09/16/23 18:43 Related Data Home Medications Medication Instructions Recorded Confirmed metoprolol tartrate 50 mg tablet 50 mg PO BID 12/24/22 09/12/23 aspirin 81 mg chewable tablet 162 mg PO DAILY 12/25/22 09/12/23 (Aspirin Childrens) atorvastatin 10 mg tablet 10 mg PO QPM 05/25/23 09/12/23 tizanidine 4 mg tablet 4 mg PO QPM 05/25/23 09/12/23 isosorbide mononitrate 30 mg 30 mg PO QAM 01/06/24 02/28/24 tablet,extended release 24 hr ranolazine 500 mg tablet,extended 500 mg PO Q12H 07/21/23 09/12/23 release,12 hr topiramate 100 mg tablet 200 mg PO BEDTIME 07/21/23 09/12/23 diphenhydramine HCl 25 mg tablet 50 mg PO .hs 09/12/23 09/12/23 (Allergy) melatonin 12 mg tablet 24 mg PO .hs 09/12/23 09/12/23 Previous Rx's Medication Instructions Recorded levofloxacin 500 mg tablet 500 mg PO DAILY 7 days #7 tabs 09/13/23 levothyroxine 100 mcg capsule 100 mcg PO DAILY #30 caps 09/13/23 liothyronine 5 mcg tablet 10 mcg (2 x 5 mcg) PO DAILY #60 09/13/23 tabs prednisone 20 mg tablet 20 mg PO BID 5 days #10 tabs 09/13/23 Allergies Allergy/AdvReac Type Severity Reaction Status Date / Time Penicillins Allergy Severe Verified 06/21/23 01:46 strawbery Allergy Uncoded 06/21/23 01:46 [facility] Medical History (Updated 09/16/23 @ 20:44 by Erika Gramajo MD) Bilateral edema of lower extremity ?R60.0 - Localized edema (ICD-10) Hypertension ?I10 - Essential (primary) hypertension (ICD-10) Hyperlipidemia ?E78.5 - Hyperlipidemia, unspecified (ICD-10) Migraine ?G43.909 - Migraine, unspecified, not intractable, without status migrainosus (ICD-10) Enlarged prostate ?N40.0 - Benign prostatic hyperplasia without lower urinary tract symptoms (ICD-10) Upper back pain ?M54.9 - Dorsalgia, unspecified (ICD-10) Back pain ?M54.9 - Dorsalgia, unspecified (ICD-10) Neck pain ?M54.2 - Cervicalgia (ICD-10) Seizure ?R56.9 - Unspecified convulsions (ICD-10) Numbness and tingling ?R20.0 - Anesthesia of skin (ICD-10) ?R20.2 - Paresthesia of skin (ICD-10) Heartburn ?R12 - Heartburn (ICD-10) Acid reflux ?K21.9 - Gastro-esophageal reflux disease without esophagitis (ICD-10) Hypothyroid ?E03.9 - Hypothyroidism, unspecified (ICD-10) Emphysema of lung ?J43.9 - Emphysema, unspecified (ICD-10) Surgical History H/O cervical spine surgery ?Z98.890 - Other specified postprocedural states (ICD-10) H/O heart surgery ?Z98.890 - Other specified postprocedural states (ICD-10) H/O lumbosacral spine surgery ?Z98.890 - Other specified postprocedural states (ICD-10) Social History Smoking status: Former smoker Highest level of school completed/degree received: some college, no degree Do you think of yourself as: straight/heterosexual Gender Identity: male Exam Constitutional Vital Signs, click to edit/add: Last Vital Signs Temp 98.6 F 09/16/23 18:45 Pulse 78 09/16/23 18:45 Resp 18 09/16/23 18:45 BP 174/92 H 09/16/23 18:45 Pulse Ox 97 09/16/23 19:12 O2 Del Method Room Air 09/16/23 19:12 Course Vital Signs Vital signs: Vital Signs Temperature 98.6 F 09/16/23 18:45 Pulse Rate 78 09/16/23 18:45 Respiratory Rate 18 09/16/23 18:45 Blood Pressure 174/92 H 09/16/23 18:45 Pulse Oximetry 97 09/16/23 18:45 Oxygen Delivery Method Room Air 09/16/23 18:45 Temperature 98.6 F 09/16/23 18:45 Pulse Rate 78 09/16/23 18:45 Respiratory Rate 18 09/16/23 18:45 Blood Pressure 174/92 H 09/16/23 18:45 Pulse Oximetry 97 09/16/23 19:12 Oxygen Delivery Method Room Air 09/16/23 19:12 Medical Decision Making MDM Narrative Medical decision making narrative: Is 58-year-old male was signed out to me at shift change pending labs and x-ray. He has been admitted to this facility recently for hyponatremia and hypothyroidism. The patient is on Synthroid and it was recently increased to 100 ?g. He started taking 100 ?g dosing on August. He is here today with his stating that he feels very weak and is having episodes of confusion. He states that he passed out twice today. He states his head is in a fog. He denies any chest pain. He states he is on an antibiotic because Dr. Guadalupe heard crackles in his lungs last week. I ordered an EKG which is a sinus rhythm at 70 beats for minute with a normal axis and low voltage. Routine labs are reviewed. He has a normal white count and hemoglobin. Electrolytes are essentially normal. His potassium and sodium today are normal. Glucose is mildly elevated at 120. Influenza testing is negative. Troponin is negative. His thyroid-stimulating hormone is markedly elevated at 54. This is decreased from the thyroid-stimulating hormone that was done last week that was 92.6. I will add on Covid and Urinalysis to complete this workup. Urine is negative for infection. COVID 19 testing is negative. I reviewed his chest x-ray which does not show any pneumonia or fluid overload. He has an appointment tomorrow at [facility] for a loop recorder device placement. I encouraged him to get some rest and follow up tomorrow for this important step. Lab Data Labs: Lab Results 09/16/23 09/16/23 Range/Units 19:00 19:49 WBC 9.7 (4.0-11.0) 10^3/uL RBC 4.50 L (4.70-6.10) 10^6/uL Hgb 13.9 L (14.0-18.0) g/dL Hct 42.4 (42.0-54.0) % MCV 94.2 H (80.0-94.0) fL MCH 30.9 (25.9-34.0) pg MCHC 32.8 (29.9-35.2) g/dL RDW 17.2 H (11.0-15.0) % Plt Count 268 (150-450) 10^3/uL MPV 8.8 L (9.5-13.5) fL Neut % (Auto) 63.0 (43.0-75.0) % Lymph % (Auto) 30.3 (20.5-60.0) % Jennings % (Auto) 4.5 (1.7-12.0) % Eos % (Auto) 1.4 (0.9-7.0) % Baso % (Auto) 0.2 (0.2-2.0) % Neut # (Auto) 6.1 (1.4-6.5) 10^3/uL Lymph # (Auto) 3.0 (1.2-3.8) 10^3/uL Jennings # (Auto) 0.4 (0.3-0.8) 10^3/uL Eos # (Auto) 0.1 (0.0-0.7) 10^3/uL Baso # (Auto) 0.0 (0.0-0.1) 10^3/uL Abs Immat Gran (auto) 0.06 H (0.00-0.03) 10^3/uL Imm/Tot Granulo (auto) 0.6 H (0.0-0.5) % Sodium 133 L (136-145) mmol/L Potassium 3.7 (3.5-5.1) mmol/L Chloride 97 L (98-107) mmol/L Carbon Dioxide 22.4 (21.0-32.0) mmol/L Anion Gap 17.3 BUN 8.0 (7.0-18.0) mg/dL Creatinine 1.08 (0.70-1.30) mg/dL Est GFR ( Amer) >60 (>=60) Est GFR (Non-Af Amer) >60 (>=60) BUN/Creatinine Ratio 7.4 Glucose 120 H (74-106) mg/dL Calcium 8.7 (8.5-10.1) mg/dL Total Bilirubin 0.3 (0.2-1.0) mg/dL AST 16 (15-37) U/L ALT 15 L (16-63) U/L Alkaline Phosphatase 74 (46-116) U/L Troponin I High Sens <4.0 L (4.0-76.1) pg/mL Total Protein 8.0 (6.4-8.2) g/dL Albumin 3.7 (3.4-5.0) g/dL Globulin 4.3 g/dL Albumin/Globulin Ratio 0.9 TSH 54.251 H (0.358-3.740) uIU/mL Urine Color Lt. yellow (YELLOW) Urine Clarity Clear (CLEAR) Urine pH 6.5 (5.0-9.0) Ur Specific Kelly <=1.005 A (1.005-1.025) Urine Protein Negative (NEG/TRACE) mg/dL Urine Glucose (UA) Negative (NEGATIVE) mg/dL Urine Ketones Negative (NEGATIVE) mg/dL Urine Occult Blood Negative (NEGATIVE) Urine Nitrite Negative (NEGATIVE) Urine Bilirubin Negative (NEGATIVE) Urine Urobilinogen 0.2 (0.2-1.0) EU/dL Ur Leukocyte Esterase Negative (NEGATIVE) Urine RBC None seen (0-2) #/HPF Urine WBC None seen (NONE SEEN) #/HPF Ur Squamous Epith Cells None seen (NONE/RARE) #/LPF Urine Crystals None seen (None Seen) #/HPF Urine Bacteria None seen (NONE SEEN) #/HPF Urine Casts None seen (NONE SEEN) #/LPF Urine Mucus None seen (NONE SEEN) Influenza Type A Ag Negative Influenza Type B Ag Negative SARS-CoV-2 Ag (CV2AG) Negative (NEGATIVE) ECG Data Attestation: I personally reviewed and interpreted this ECG as follows: (Sinus rhythm at 70 bpm, low voltage QRS in chest leads, normal axis, normal intervals, no acute ST segment elevation or T-wave inversion) Discharge Plan Discharge Chief Complaint: Weakness Clinical Impression: Generalized weakness, Hypothyroidism Patient Disposition: Home, Self-Care Time of Disposition Decision: 20:44 Condition: Good Prescriptions / Home Meds: No Action metoprolol tartrate 50 mg tablet 50 mg PO BID atorvastatin 10 mg tablet 10 mg PO QPM tizanidine 4 mg tablet 4 mg PO QPM topiramate 100 mg tablet 200 mg PO BEDTIME diphenhydramine HCl [Allergy] 25 mg tablet 50 mg PO .hs melatonin 12 mg tablet 24 mg PO .hs levothyroxine 100 mcg capsule 100 mcg PO DAILY Qty: 30 11RF liothyronine 5 mcg tablet 10 mcg PO DAILY Qty: 60 11RF levofloxacin 500 mg tablet 500 mg PO DAILY 7 Days Qty: 7 0RF prednisone 20 mg tablet 20 mg PO BID 5 Days Qty: 10 0RF aspirin [Aspirin Childrens] 81 mg tablet,chewable 162 mg PO DAILY isosorbide mononitrate 30 mg tablet extended release 24 hr 30 mg PO QAM ranolazine 500 mg tablet extended release 12 hr 500 mg PO Q12H Instructions: Hypothyroidism (ED), Weakness (ED) Referrals: Patrcie Guadalupe MD [Primary Care Provider] - 1 week Stand Alone Forms: Portal Instructions
--- OUTSIDE RECORDS SUMMARY | 2023-09-16 18:51 | XMS_ITS | CCD ---
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 Role Phone LESVIA ., DR GLASGOW [...] HOY ., DR GLASGOW Primary Care Unavailable REINANIYA, DR SHIVA Love Consulting Unavailabl e REINECK, DR SHIVA Love Attending Unavailabl e SCARLET, DR SHIVA Love Admitting UnavailJULIO CESAR Elliott Consulting Unavailable PAY ., DR SAMUEL Consulting Unavailable PAY ., DR SAMUEL Attending Unavailable HOY ., DR GLASGOW Primary Care Unavailable PAY ., DR SAMUEL Admitting Unavailable HOY ., DR GLASGOW Primary Care Unavailable SCARLET, DR SHIVA Loev Consulting Unavailabl e REINANIYA, DR SHIVA Love [...] Translations: [PENICILLINS] Drug allergy (disorder) 05-30-2015 [facility] Repository (2 sources) strawberry allergenic extract; Translations: [STRAWBERRY] Drug Allergy 05-13-2016 [facility] Repository Problems Active Problems Problem Classification Problem [...] 10-29-2022 Chronic Other aftercare (1 source) Other manager terminal (current) drug therapy; Translations: [OTH 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 CURRENT DRUG THERAPY] Onset: 12-04-2022 Episodic Other [...] Range Facility Office Visiton 07-17-2023 Follow-up visit [id number] Rehan Poole 1965 M Date Provider Department Center 07/17/2023 GÉNESIS SCHERER CARD [facility] No family history on file Level of Service:25892 CT OFFICE/OUTPATIENT ESTABLISHED MOD MDM 30 MIN [facility] 30on 05-28-2023 30 The patient is [...] goals for the shift include VSS Normal [facility] APTTon 05-28-2023 ACTIVATED PARTIAL THROMBOPLASTIN TIME IN PPP BY COAGULATION ASSAY 33.8 Seconds Normal 25.0-35.0 [facility] Comment on above: Result Comment: Clin ical significance of the APTT is questionable in the presence of heparin. Performed By: #### L [id number] #### [facility] ([facility]) [address] [place] [address] B-TYPE NATRIURETIC PEPTIDEon 05-28-2023 Natriuretic peptide B (Bld) [Mass/Vol] 76 pg/mL Normal 0-100 [facility] Comment on above: Performed By: #### L [id number] #### [facility] ([facility]) [address] [place] [address] BLOOD CULTUREon 05-28-2023 Bacteria identified Cx Nom (Bld) No growth at 5 days Normal [facility] Comment on above: Performed By: #### L [id number] #### [facility] ([facility]) [address] [place] [address] Order Comment: From a different site than #1. Performed By: #### L [id number] #### [facility] ([facility]) [address] [place] [address] CBC WITH AUTO DIFFERENTIALon 05-28-2023 Basophils (Bld) [#/Vol] 0.05 10*3/uL Normal 0.00-0.20 [facility] Comment on above: Performed By: #### L [id number] #### [facility] ([facility]) [address] [place] [address] Basophils/100 WBC (Bld) 0.4 % Normal 0.0-1.0 [facility] Comment on above: Performed By: #### L [id number] #### [facility] ([facility]) [address] [place] [address] Eosinophils (Bld) [#/Vol] 0.02 10*3/uL Normal 0.00-0.50 [facility] Comment on above: Performed By: #### L [id number] #### [facility] ([facility]) [address] [place] [address] Eosinophils/100 WBC (Bld) 0.1 % Normal 0.0-6.0 [facility] Comment on above: Performed By: #### L [id number] #### [facility] ([facility]) [address] [place] [address] Erythrocyte distribution width (RBC) [Ratio] 17.5 % High 11.5-15.0 [facility] Comment on above: Performed By: #### L [id number] #### [facility] ([facility]) [address] [place] [address] ERYTHROCYTE MEAN CORPUSCULAR HEMOGLOBIN CONCENTRATION (G/DL) BY AUTOMATED 33.7 g/dL Normal 32.0-35.0 [facility] Comment on above: Performed By: #### L [id number] #### [facility] ([facility]) [address] [place] [address] Hematocrit (Bld) [Volume fraction] 34.4 % Low 39.0-55.0 [facility] Comment on above: Performed By: #### L [id number] #### [facility] ([facility]) [address] [place] [address] Hemoglobin (Bld) [Mass/Vol] 11.6 g/dL Low 13.0-17.0 [facility] Comment on above: Performed By: #### L [id number] #### [facility] ([facility]) [address] [address] Immature granulocytes (Bld) [#/Vol] 0.16 10*3/uL Normal 0.00-0.20 [facility] Comment on above: Performed By: #### L [id number] #### [facility] ([facility]) [address] [place] [address] Immature granulocytes/100 WBC (Bld) 1.1 % High 0.0-1.0 [facility] Comment on above: Performed By: #### L [id number] #### [facility] ([facility]) [address] [address] Lymphocytes (Bld) [#/Vol] 2.52 10*3/uL Normal 1.20-4.00 [facility] Comment on above: Performed By: #### L [id number] #### [facility] ([facility]) [address] [address] Lymphocytes/100 WBC (Bld) 17.9 % Low 20.0-45.0 [facility] Comment on above: Performed By: #### L [id number] #### [facility] ([facility]) [address] [place] [address] MCH (RBC) [Entitic mass] 33.7 pg High 27.0-33.0 [facility] Comment on above: Performed By: #### L [id number] #### [facility] ([facility]) [address] [place] [address] MCV (RBC) [Entitic vol] 100.0 fL High 82.0-98.0 [facility] Comment on above: Performed By: #### L [id number] #### [facility] ([facility]) [address] [address] Monocytes (Bld) [#/Vol] 1.27 10*3/uL High 0.10-1.00 [facility] Comment on above: Performed By: #### L [id number] #### [facility] ([facility]) [address] [place] [address] Monocytes/100 WBC (Bld) 9.0 % Normal 5.0-12.0 [facility] Comment on above: Performed By: #### L [id number] #### [facility] ([facility]) [address] [place] [address] Neutrophils (Bld) [#/Vol] 10.03 10*3/uL High 1.60-7.60 [facility] Comment on above: Performed By: #### L [id number] #### [facility] ([facility]) [address] [place] [address] Neutrophils/100 WBC (Bld) 71.5 % Normal 40.0-72.0 [facility] Comment on above: Performed By: #### L [id number] #### [facility] ([facility]) [address] [place] [address] NRBC (PER 100 WBCS) BY AUTOMATED COUNT 0.0 % Normal 0 [facility] Comment on above: Performed By: #### L [id number] #### [facility] ([facility]) [address] [place] [address] PLATELETS (10*3/UL) IN BLOOD AUTOMATED COUNT 232 10*3/uL Normal 150-400 [facility] Comment on above: Performed By: #### L [id number] #### [facility] ([facility]) [address] [place] [address] RBC (Bld) [#/Vol] 3.44 10*6/uL Low 4.20-5.70 [facility] Comment on above: Performed By: #### L [id number] #### [facility] ([facility]) [address] [place] [address] WBC (Bld) [#/Vol] 14.05 10*3/uL High 4.00-10.60 [facility] Comment on above: Performed By: #### L [id number] #### [facility] ([facility]) [address] [place] [address] COMPREHENSIVE METABOLIC PANE Dawit 05-28-2023 Albumin [Mass/Vol] 4.2 g/dL Normal 3.5-5.7 [facility] Comment on above: Performed By: #### L [id number] #### [facility] ([facility]) [address] [place] [address] ALP [Catalytic activity/Vol] 95 U/L Normal 34-104 [facility] Comment on above: Performed By: #### L [id number] #### [facility] ([facility]) [address] [place] [address] ALT [Catalytic activity/Vol] 18 U/L Normal 7-52 [facility] Comment on above: Performed By: #### L [id number] #### [facility] ([facility]) [address] [place] [address] Anion gap [Moles/Vol] 12 mmol/L Normal 7-20 [facility] Comment on above: Performed By: #### L [id number] #### [facility] ([facility]) [address] [place] [address] AST [Catalytic activity/Vol] 12 U/L Low 13-39 [facility] Comment on above: Performed By: #### L [id number] #### [facility] ([facility]) [address] [place] [address] Bilirubin [Mass/Vol] 0.4 mg/dL Normal 0.3-1.0 [facility] Comment on above: Performed By: #### L [id number] #### [facility] ([facility]) [address] [place] [address] Calcium [Mass/Vol] 9.3 mg/dL Normal 8.6-10.3 [facility] Comment on above: Performed By: #### L [id number] #### [facility] ([facility]) [address] [place] [address] Chloride [Moles/Vol] 106 mmol/L Normal 98-107 [facility] Comment on above: Performed By: #### L [id number] #### [facility] ([facility]) [address] [place] [address] CO2 [Moles/Vol] 19 mmol/L Low 21-31 [facility] Comment on above: Performed By: #### L [id number] #### [facility] ([facility]) [address] [place] [address] Creatinine [Mass/Vol] 0.82 mg/dL Normal 0.70-1.30 [facility] Comment on above: Performed By: #### L [id number] #### [facility] ([facility]) [address] [place] [address] GLOMERULAR FILTRATION RATE ML/MIN/1.73 SQ M.PREDICTED 101.8 mL/min/1.73m*2 Normal >60.0 [facility] Comment on above: Result Comment: The [facility]???s estimated glomerular filtration rate (eGFR) will no [...] individuals. Performed By: #### L [id number] #### [facility] ([facility]) [address] [place] [address] Glucose [Mass/Vol] 96 mg/dL Normal 70-100 [facility] Comment on above: Performed By: #### L [id number] #### [facility] ([facility]) [address] [place] [address] Potassium [Moles/Vol] 3.5 mmol/L Normal 3.5-5.1 [facility] Comment on above: Performed By: #### L [id number] #### [facility] ([facility]) [address] [place] [address] Protein [Mass/Vol] 6.9 g/dL Normal 6.0-8.3 [facility] Comment on above: Performed By: #### L [id number] #### [facility] ([facility]) [address] [place] [address] Sodium [Moles/Vol] 133 mmol/L Low 136-145 [facility] Comment on above: Performed By: #### L [id number] #### [facility] ([facility]) [address] [place] [address] Urea nitrogen [Mass/Vol] 10 mg/dL Normal 7-25 [facility] Comment on above: Performed By: #### L [id number] #### [facility] ([facility]) [address] [place] [address] UREA NITROGEN/CREATININE (MASS RATIO) IN SER/PLAS 12.2 Normal [facility] Comment on above: Performed By: #### L [id number] #### [facility] ([facility]) [address] [place] [address] CONSULTon 05-28-2023 CONSULT -- Attestation signed by [...] History No family history on file. Allergies [place] and Penicillins Medications Medications Prior to Admission [...] the past (more content not included)... Normal [facility] CT HEAD WO IV CONTRASTon CT HEAD [...] this report. Electronically signed: Araceli Moseley. Normal [facility] ETHANOLon 05-28-2023 ETHANOL (MG/DL) IN SER/PLAS <10 Normal [facility] Comment on above: Performed By: #### L [id number] #### [facility] ([facility]) [address] [place] [address] ETHANOL CALCULATED (%) Normal [facility] Comment on above: Performed By: #### L [id number] #### [facility] ([facility]) [address] [place] [address] FOLATEon 05-28-2023 FOLATE (NG/ML) IN SER/PLAS 7.00 ng/mL Normal 6.6-1000 [facility] Comment on above: Performed By: #### L [id number] #### [facility] ([facility]) [address] [place] [address] HEMOGLOBIN A1Con 05-28-2023 Glucose [Mass/Vol] 114 mg/dL Normal [facility] Comment on above: Performed By: #### L [id number] #### [facility] ([facility]) [address] [place] [address] HbA1c (Bld) [Mass fraction] 5.6 % Normal 4.0-6.0 [facility] Comment on above: Performed By: #### L [id number] #### [facility] ([facility]) [address] [place] [address] LACTIC ACID WITH 4 HOUR REFL EXon 05-28-2023 LACTATE (MMOL/L) IN SER/PLAS 0.7 mmol/L Normal 0.5-2.2 [facility] Comment on above: Performed By: #### L [id number] #### [facility] ([facility]) [address] [address] LIPID PANELon 05-28-2023 CHOL/HDL 2.7 mg/dL Normal [facility] Comment on above: Performed By: #### L [id number] #### [facility] ([facility]) [address] [place] [address] Cholesterol [Mass/Vol] 115 mg/dL Low 120-200 [facility] Comment on above: Performed By: #### L [id number] #### [facility] ([facility]) [address] [facility] [place] [address] Magnesium [Mass/Vol] 72 mg/dL Normal 40-149 [facility] Comment on above: Result Comment: TRIG LYCERIDE REFERENCE RANGE: 20 YEARS AND OLDER CARDIOVASCULAR RISK LESS THAN 150 mg/dL LOW RISK 150 TO 199 mg/dL BORDERLINE RISK 200 mg/dL AND GREATER HIGH RISK Performed By: #### L [id number] #### [facility] ([facility]) [address] [place] [address] Magnesium [Mass/Vol] 58 mg/dL Normal 0-160 [facility] Comment on above: Performed By: #### L [id number] #### [facility] ([facility]) [address] [place] [address] Magnesium [Mass/Vol] 43 mg/dL Normal 23-92 [facility] Comment on above: Performed By: #### L [id number] #### [facility] ([facility]) [address] [place] [address] NON HDL CHOL. (LDL+VLDL) 72 Normal [facility] Comment on above: Performed By: #### L [id number] #### [facility] ([facility]) [address] [place] [address] TOTAL VLDL-C 14 mg/dL Normal 0-40 [facility] Comment on above: Performed By: #### L [id number] #### [facility] ([facility]) [address] [facility] [place] [address] MAGNESIUMon 05-28-2023 Magnesium [Mass/Vol] 1.7 mg/dL Low 1.9-2.7 [facility] Comment on above: Performed By: #### L [id number] #### [facility] ([facility]) [address] [place] [address] PHOSPHORUSon 05-28-2023 Magnesium [Mass/Vol] 3.0 mg/dL Normal 2.5-5.0 [facility] Comment on above: Performed By: #### L [id number] #### [facility] ([facility]) [address] [facility] [place] [address] POCT GLUCOSE METER UNSOLICIT ED RESULTSon 05-28-2023 Glucose [Mass/Vol] 97 mg/dL Normal 70-105 [facility] Comment on above: Order Comment: Waive d Testing in the ED is performed under the ED CLIA certificate #[id number]. Result Comment: [email or web address] Performed By: #### L [id number] #### [facility] ([facility]) [address] [place] [address] Glucose [Mass/Vol] 101 mg/dL Normal 70-105 [facility] Comment on above: Order Comment: Waive d Testing in the ED is performed under the ED CLIA certificate #[id number]. Result Comment: [email or web address] Performed By: #### L [id number] #### [facility] ([facility]) [address] [facility] [place] [address] PROTIME-INRon 05-28-2023 INR IN PPP BY COAGULATION ASSAY 1.01 Normal 0.90-1.10 [facility] Comment on above: Result Comment: ACCC P [...] 1995;[id number]. Performed By: #### L [id number] #### [facility] ([facility]) [address] [place] [address] PROTHROMBIN TIME (PT) IN PPP BY COAGULATION ASSAY 13.3 Seconds Normal 12.3-14.8 [facility] Comment on above: Performed By: #### L [id number] #### [facility] ([facility]) [address] [place] [address] T4, FREEon 05-28-2023 THYROXINE (T4) FREE (NG/DL) IN SER/PLAS 1.90 ng/dL High 0.71-1.85 [facility] Comment on above: Performed By: #### L [id number] #### [facility] ([facility]) [address] [place] [address] TOXICOLOGY PANEL URINEon AMPHETAMINE+METHAMPH ETAMINE SCREEN (PRESENCE) IN URINE Negative Normal Negative [facility] Comment on above: Performed By: #### L [id number] #### [facility] ([facility]) [address] [place] [address] BARBITURATES PRESENCE IN URINE BY SCREEN METHOD Negative Normal Negative [facility] Comment on above: Performed By: #### L [id number] #### [facility] ([facility]) [address] [place] [address] Benzodiazepines Ql (U) Negative Normal Negative [facility] Comment on above: Performed By: #### L [id number] #### [facility] ([facility]) [address] [place] [address] CANNABINOID (PRESENCE) IN URINE BY SCREEN METHOD Negative Normal Negative [facility] Comment on above: Performed By: #### L [id number] #### [facility]) [address] [place] [address] Cocaine Ql (U) Negative Normal Negative [facility] Comment on above: Performed By: #### L [id number] #### [facility] ([facility]) [address] [place] [address] METHADONE (PRESENCE) IN URINE BY SCREEN METHOD Negative Normal Negative [facility] Comment on above: Performed By: #### L [id number] #### [facility] ([facility]) [address] [place] [address] OPIATES (PRESENCE) IN URINE BY SCREEN METHOD Negative Normal Negative [facility] Comment on above: Performed By: #### L [id number] #### [facility] ([facility]) [address] [place] [address] PHENCYCLIDINE PRESENCE IN URINE BY SCREEN METHOD Negative Normal Negative [facility] Comment on above: Performed By: #### L [id number] #### [facility] ([facility]) [address] [place] [address] Propoxyphene Screen Ql (U) Negative Normal Negative [facility] Comment on above: Performed By: #### L [id number] #### [facility] ([facility]) [address] [place] [address] TRICYCLIC ANTIDEPRESSANTS (PRESENCE) IN URINE Negative Normal Negative [facility] Comment on above: Performed By: #### L [id number] #### [facility] ([facility]) [address] [place] [address] TROPONIN Ion 05-28-2023 Troponin I.cardiac [Mass/Vol] 0.01 ng/mL Normal 0.00-0.04 [facility] Comment on above: Performed By: #### L [id number] #### [facility] ([facility]) [address] [place] [address] Troponin I.cardiac [Mass/Vol] 0.02 ng/mL Normal 0.00-0.04 [facility] Comment on above: Performed By: #### L [id number] #### [facility] ([facility]) [address] [place] [address] Troponin I.cardiac [Mass/Vol] 0.01 ng/mL Normal 0.00-0.04 [facility] Comment on above: Performed By: #### L [id number] #### [facility] ([facility]) [address] [place] [address] TSH3 REFLEX TO FT4on 023 THYROTROPIN (MIU/L) IN SER/PLAS BY DETECTION LIMIT <= 0.05 MIU/L 0.15 mIU/L Low 0.34-5.60 [facility] Comment on above: Performed By: #### L [id number] #### [facility] ([facility]) [address] [place] [address] URINALYSIS WITH REFLEX CULTU REon 05-28-2023 BILIRUBIN, TOTAL PRESENCE IN URINE Negative Normal Negative [facility] Comment on above: Order Comment: Micro scopics not performed on urines with negative chemical reactions unless requested on original order. Performed By: #### L [id number] #### [facility] ([facility]) [address] [place] [address] Clarity (U) Clear Normal Clear [facility] Comment on above: Order Comment: Micro scopics not performed on urines with negative chemical reactions unless requested on original order. Performed By: #### L [id number] #### [facility] ([facility]) [address] [place] [address] Color (U) Yellow Normal Yellow [facility] Comment on above: Order Comment: Micro scopics not performed on urines with negative chemical reactions unless requested on original order. Performed By: #### L [id number] #### [facility] ([facility]) [address] [place] [address] Glucose (U) [Mass/Vol] Negative Normal Negative [facility] Comment on above: Order Comment: Micro scopics not performed on urines with negative chemical reactions unless requested on original order. Performed By: #### L [id number] #### [facility] ([facility]) [address] [place] [address] HEMOGLOBIN PRESENCE IN URINE Negative Normal Negative [facility] Comment on above: Order Comment: Micro scopics not performed on urines with negative chemical reactions unless requested on original order. Performed By: #### L [id number] #### [facility] ([facility]) [address] [place] [address] Ketones Ql (U) Trace Abnormal Negative [facility] Comment on above: Order Comment: Micro scopics not performed on urines with negative chemical reactions unless requested on original order. Performed By: #### L [id number] #### [facility] ([facility]) [address] [place] [address] LEUKOCYTE ESTERASE PRESENCE IN URINE BY TEST STRIP Negative Normal Negative [facility] Comment on above: Order Comment: Micro scopics not performed on urines with negative chemical reactions unless requested on original order. Performed By: #### L [id number] #### [facility] ([facility]) [address] [place] [address] NITRITE PRESENCE IN URINE Negative Normal Negative [facility] Comment on above: Order Comment: Micro scopics not performed on urines with negative chemical reactions unless requested on original order. Performed By: #### L [id number] #### [facility] ([facility]) [address] [place] [address] pH (U) 6.0 [pH] Normal 5.0-8.0 [facility] Comment on above: Order Comment: Micro scopics not performed on urines with negative chemical reactions unless requested on original order. Performed By: #### L [id number] #### [facility] ([facility]) [address] [place] [address] Protein (U) [Mass/Vol] Negative Normal Negative [facility] Comment on above: Order Comment: Micro scopics not performed on urines with negative chemical reactions unless requested on original order. Performed By: #### L [id number] #### [facility] ([facility]) [address] [place] [address] Specific gravity (U) [Rel density] 1.019 Normal 1.015-1.020 [facility] Comment on above: Order Comment: Micro scopics not performed on urines with negative chemical reactions unless requested on original order. Performed By: #### L [id number] #### [facility] ([facility]) [address] [place] [address] UROBILINOGEN (EU/DL) IN URINE 2.0 EU/dL Abnormal Negative [facility] Comment on above: Order Comment: Micro scopics not performed on urines with negative chemical reactions unless requested on original order. Performed By: #### L [id number] #### [facility] ([facility]) [address] [place] [address] VITAMIN B12on 05-28-2023 Cobalamin (Vitamin B12) [Mass/Vol] 119 pg/mL Low 180-914 [facility] Comment on above: Result Comment: REFE RENCE RANGES: 180-914 pg/mL Normal 145-179 pg/mL Indeterminate <145 pg/mL Deficient Performed By: #### L [id number] #### [facility] ([facility]) [address] [place] [address] Office Visiton 05-18-2023 Follow-up visit [id number] Rehan Poole 1965 M Date Provider Department Center 05/18/2023 Parish-G[facility]NESIS CHASE [facility] No family history on file Level of Service:34930 CT OFFICE/OUTPATIENT ESTABLISHED MOD MDM 30-39 MIN Reason for Visit and Comments: Follow-up [841028] Normal [facility] 30on 04-24-2023 30 Problem: Pain - Adul [...] goals for the shift include VSS Normal [facility] 30 The patient is Moderately Stable - [...] maintained within prescribed range Outcome: Progressing Normal [facility] BASIC METABOLIC PANELon 10- Anion gap [Moles/Vol] 12 mmol/L Normal -20 [facility] Comment on above: Performed By: #### L [id number] #### [facility] ([facility]) [address] [place] [address] Calcium [Mass/Vol] 9.3 mg/dL Normal 8.6-10.3 [facility] Comment on above: Performed By: #### L [id number] #### [facility] ([facility]) [address] [place] [address] Chloride [Moles/Vol] 106 mmol/L Normal 98-107 [facility] Comment on above: Performed By: #### L [id number] #### [facility] ([facility]) [address] [place] [address] CO2 [Moles/Vol] 21 mmol/L Normal 21-31 [facility] [place] Comment on above: Performed By: #### L [id number] #### [facility] ([facility]) [address] [place] [address] Creatinine [Mass/Vol] 1.20 mg/dL Normal 0.70-1.30 [facility] Comment on above: Performed By: #### L [id number] #### [facility] ([facility]) [address] [place] [address] GLOMERULAR FILTRATION RATE ML/MIN/1.73 SQ M.PREDICTED 70.1 mL/min/1.73m*2 Normal >60.0 [facility] Comment on above: Result Comment: The [facility]???s estimated glomerular filtration rate (eGFR) will no [...] individuals. Performed By: #### L [id number] #### [facility] ([facility]) [address] [place] [address] Glucose [Mass/Vol] 98 mg/dL Normal 70-100 [facility] Comment on above: Performed By: #### L [id number] #### [facility] ([facility]) [address] [place] [address] Potassium [Moles/Vol] 3.8 mmol/L Normal 3.5-5.1 [facility] Comment on above: Performed By: #### L [id number] #### [facility] ([facility]) [address] [place] [address] Sodium [Moles/Vol] 135 mmol/L Low 136-145 [facility] Comment on above: Performed By: #### L [id number] #### [facility] ([facility]) [address] [place] [address] Urea nitrogen [Mass/Vol] 10 mg/dL Normal 7-25 [facility] Comment on above: Performed By: #### L [id number] #### [facility] ([facility]) [address] [place] [address] UREA NITROGEN/CREATININE (MASS RATIO) IN SER/PLAS 8.3 Normal [facility] Comment on above: Performed By: #### L [id number] #### [facility] ([facility]) [address] [place] [address] CBCon 04-24-2023 Erythrocyte distribution width (RBC) [Ratio] 17.1 % High 11.5-15.0 [facility] Comment on above: Performed By: #### L [id number] #### [facility] ([facility]) [address] [place] [address] ERYTHROCYTE MEAN CORPUSCULAR HEMOGLOBIN CONCENTRATION (G/DL) BY AUTOMATED 33.3 g/dL Normal 32.0-35.0 [facility] Comment on above: Performed By: #### L [id number] #### [facility] ([facility]) [address] [place] [address] Hematocrit (Bld) [Volume fraction] 35.1 % Low 39.0-55.0 [facility] Comment on above: Performed By: #### L [id number] #### [facility] ([facility]) [address] [facility] [place] [address] Hemoglobin (Bld) [Mass/Vol] 11.7 g/dL Low 13.0-17.0 [facility] Comment on above: Performed By: #### L [id number] #### [facility] ([facility]) [address] [facility] [place] [address] MCH (RBC) [Entitic mass] 32.7 pg Normal 27.0-33.0 [facility] Comment on above: Performed By: #### L [id number] #### [facility] [address] [place] [address] MCV (RBC) [Entitic vol] 98.0 fL Normal 82.0-98.0 [facility] Comment on above: Performed By: #### L [id number] #### [facility] ([facility]) [address] [place] [address] PLATELETS (10*3/UL) IN BLOOD AUTOMATED COUNT 216 10*3/uL Normal 150-400 [facility] Comment on above: Performed By: #### L [id number] #### [facility] ([facility]) [address] [place] [address] RBC (Bld) [#/Vol] 3.58 10*6/uL Low 4.20-5.70 [facility] Comment on above: Performed By: #### L [id number] #### [facility] ([facility]) [address] [place] [address] WBC (Bld) [#/Vol] 11.41 10*3/uL High 4.00-10.60 [facility] Comment on above: Performed By: #### L [id number] #### [facility] ([facility]) [address] [place] [address] DSon 04-24-2023 DS Admission Admitted 04/20/2023 for [...] Medications These medications were sent to [facility] - [place], [place] - [address] [place] [address] [place] [address], [facility] [address] hydrocortisone 10 mg tablet levothyroxine 200 mcg tablet metoprolol tartrate 25 mg tablet Activity Patient currently has no discharge activity orders Diet Patient currently has no discharge diet orders Allergies [place] and Penicillins Hospital Course Rehan Poole is an 58 y.o. male who came from home with past medical history of hypertension, migraine headaches, seizure, neuropathy, history of PFO presented to [facility] as a transfer Concern for Mobitz [...] hydrocortisone. Case was discussed with endocrinology at [facility] for potential transfer. Advised to [...] CO2 19 (more content not included)... Normal [facility] MAGNESIUMon 04-24-2023 Magnesium [Mass/Vol] 1.9 mg/dL Normal 1.9-2.7 [facility] Comment on above: Performed By: #### L [id number] #### [facility] ([facility]) [address] [place] [address] 30on 04-23-2023 30 The patient is Moderately Stable - Low risk of patient condition declining or worsening The patient's goals for the shift include comfort/rest The clinical goals for the shift include VSS Over the shift, the patient did not make progress toward the following goals. Barriers to progression include hypothyroidism. Recommendations to address these barriers include synthroid. Normal [facility] 30 The patient is Moderately Stable - [...] and behaviors that affect risk of falls [place] fall precautions as indicated by assessment Educate [...] and prevent overall improvement and discharge Normal [facility] BASIC METABOLIC PANELon 10-0 Anion gap [Moles/Vol] 12 mmol/L Normal - [facility] Comment on above: Performed By: #### L [id number] #### [facility] [address] [place] [address] Calcium [Mass/Vol] 9.3 mg/dL Normal 8.6-10.3 [facility] Comment on above: Performed By: #### L [id number] #### [facility] [address] [place] [address] Chloride [Moles/Vol] 104 mmol/L Normal 98-107 [facility] Comment on above: Performed By: #### L [id number] #### [facility] ([facility]) [address] [place] [address] CO2 [Moles/Vol] 18 mmol/L Low 21-31 [facility] [place] Comment on above: Performed By: #### L [id number] #### [facility] ([facility]) [address] [place] [address] Creatinine [Mass/Vol] 1.12 mg/dL Normal 0.70-1.30 [facility] Comment on above: Performed By: #### L [id number] #### [facility] ([facility]) [address] [place] [address] GLOMERULAR FILTRATION RATE ML/MIN/1.73 SQ M.PREDICTED 76.1 mL/min/1.73m*2 Normal >60.0 [facility] Comment on above: Result Comment: The [facility]???s estimated glomerular filtration rate (eGFR) will no [...] individuals. Performed By: #### L [id number] #### [facility]) [address] [place] [address] Glucose [Mass/Vol] 139 mg/dL High 70-100 [facility] Comment on above: Performed By: #### L [id number] #### [facility] ([facility]) [address] [address] Potassium [Moles/Vol] 4.2 mmol/L Normal 3.5-5.1 [facility] Comment on above: Performed By: #### L [id number] #### [facility] ([facility]) [address] [place] [address] Sodium [Moles/Vol] 130 mmol/L Low 136-145 [facility] Comment on above: Performed By: #### L [id number] #### [facility] ([facility]) [address] [place] [address] Urea nitrogen [Mass/Vol] 11 mg/dL Normal 7-25 [facility] Comment on above: Performed By: #### L [id number] #### [facility] ([facility]) [address] [place] [address] UREA NITROGEN/CREATININE (MASS RATIO) IN SER/PLAS 9.8 Normal [facility] Comment on above: Performed By: #### L [id number] #### [facility] ([facility]) [address] [address] CBCon 04-23-2023 Erythrocyte distribution width (RBC) [Ratio] 17.0 % High 11.5-15.0 [facility] Comment on above: Performed By: #### L [id number] #### [facility] ([facility]) [address] [place] [address] ERYTHROCYTE MEAN CORPUSCULAR HEMOGLOBIN CONCENTRATION (G/DL) BY AUTOMATED 32.7 g/dL Normal 32.0-35.0 [facility] Comment on above: Performed By: #### L [id number] #### [facility] ([facility]) [address] [place] [address] Hematocrit (Bld) [Volume fraction] 40.4 % Normal 39.0-55.0 [facility] Comment on above: Performed By: #### L [id number] #### [facility] ([facility]) [address] [place] [address] Hemoglobin (Bld) [Mass/Vol] 13.2 g/dL Normal 13.0-17.0 [facility] Comment on above: Performed By: #### L [id number] #### [facility] ([facility]) [address] [place] [address] MCH (RBC) [Entitic mass] 32.8 pg Normal 27.0-33.0 [facility] Comment on above: Performed By: #### L [id number] #### [facility] ([facility]) [address] [place] [address] MCV (RBC) [Entitic vol] 100.5 fL High 82.0-98.0 [facility] Comment on above: Performed By: #### L [id number] #### [facility] ([facility]) [address] [place] [address] PLATELETS (10*3/UL) IN BLOOD AUTOMATED COUNT 198 10*3/uL Normal 150-400 [facility] Comment on above: Performed By: #### L [id number] #### [facility] ([facility]) [address] [place] [address] RBC (Bld) [#/Vol] 4.02 10*6/uL Low 4.20-5.70 [facility] Comment on above: Performed By: #### L [id number] #### [facility] ([facility]) [address] [place] [address] WBC (Bld) [#/Vol] 8.96 10*3/uL Normal 4.00-10.60 [facility] Comment on above: Performed By: #### L [id number] #### [facility] ([facility]) [address] [place] [address] MAGNESIUMon 04-23-2023 Magnesium [Mass/Vol] 2.1 mg/dL Normal 1.9-2.7 [facility] Comment on above: Performed By: #### L [id number] #### [facility] ([facility]) [address] [place] [address] T4, FREEon 04-23-2023 THYROXINE (T4) FREE (NG/DL) IN SER/PLAS 0.59 ng/dL Low 0.71-1.85 [facility] Comment on above: Performed By: #### L [id number] #### [facility] ([facility]) [address] [place] [address] TSH3 REFLEX TO FT4on 023 THYROTROPIN (MIU/L) IN SER/PLAS BY DETECTION LIMIT <= 0.05 MIU/L 45.61 mIU/L High 0.34-5.60 [facility] Comment on above: Performed By: #### L [id number] #### [facility] [address] [facility] [place] [address] 30on 04-22-2023 30 The patient is Moderately [...] range: Monitor blood glucose as ordered Normal [facility] ACTHon 04-22-2023 ACTH (ADRENOCORTICOTROPHI C HORMONE) 7 pg/mL Normal 7-69 [facility] Comment on above: Result Comment: Test Performed by [employer] [address] [place], [place] [id number] - [employer] 04/23/2023 16:24 Performed By: #### L [id number] #### [facility] ([facility]) [address] [place] [address] BASIC METABOLIC PANELon 10-0 Anion gap [Moles/Vol] 12 mmol/L Normal 7-20 [facility] Comment on above: Performed By: #### L [id number] #### [facility] ([facility]) [address] [place] [address] Calcium [Mass/Vol] 8.7 mg/dL Normal 8.6-10.3 [facility] Comment on above: Performed By: #### L [id number] #### [facility] ([facility]) [address] [place] [address] Chloride [Moles/Vol] 102 mmol/L Normal 98-107 [facility] Comment on above: Performed By: #### L [id number] #### [facility] ([facility]) [address] [place] [address] CO2 [Moles/Vol] 19 mmol/L Low 21-31 [facility] [place] Comment on above: Performed By: #### L [id number] #### [facility] ([facility]) [address] [place] [address] Creatinine [Mass/Vol] 1.18 mg/dL Normal 0.70-1.30 [facility] Comment on above: Performed By: #### L [id number] #### [facility] ([facility]) [address] [place] [address] GLOMERULAR FILTRATION RATE ML/MIN/1.73 SQ M.PREDICTED 71.5 mL/min/1.73m*2 Normal >60.0 [facility] Comment on above: Result Comment: The [facility]???s estimated glomerular filtration rate (eGFR) will no [...] individuals. Performed By: #### L [id number] #### [facility] ([facility]) [address] [place] [address] Glucose [Mass/Vol] 105 mg/dL High 70-100 [facility] Comment on above: Performed By: #### L [id number] #### [facility] ([facility]) [address] [place] [address] Potassium [Moles/Vol] 3.1 mmol/L Low 3.5-5.1 [facility] Comment on above: Performed By: #### L [id number] #### [facility] ([facility]) [address] [place] [address] Sodium [Moles/Vol] 130 mmol/L Low 136-145 [facility] Comment on above: Performed By: #### L [id number] #### [facility] ([facility]) [address] [place] [address] Urea nitrogen [Mass/Vol] 13 mg/dL Normal 7-25 [facility] Comment on above: Performed By: #### L [id number] #### [facility] ([facility]) [address] [place] [address] UREA NITROGEN/CREATININE (MASS RATIO) IN SER/PLAS 11.0 Normal [facility] Comment on above: Performed By: #### L [id number] #### [facility] ([facility]) [address] [place] [address] CBCon 04-22-2023 Erythrocyte distribution width (RBC) [Ratio] 16.8 % High 11.5-15.0 [facility] Comment on above: Performed By: #### L [id number] #### [facility] ([facility]) [address] [place] [address] ERYTHROCYTE MEAN CORPUSCULAR HEMOGLOBIN CONCENTRATION (G/DL) BY AUTOMATED 33.3 g/dL Normal 32.0-35.0 [facility] Comment on above: Performed By: #### L [id number] #### [facility] ([facility]) [address] [place] [address] Hematocrit (Bld) [Volume fraction] 37.5 % Low 39.0-55.0 [facility] Comment on above: Performed By: #### L [id number] #### [facility] ([facility]) [address] [place] [address] Hemoglobin (Bld) [Mass/Vol] 12.5 g/dL Low 13.0-17.0 [facility] Comment on above: Performed By: #### L [id number] #### [facility] ([facility]) [address] [place] [address] MCH (RBC) [Entitic mass] 32.7 pg Normal 27.0-33.0 [facility] Comment on above: Performed By: #### L [id number] #### [facility] ([facility]) [address] [place] [address] MCV (RBC) [Entitic vol] 98.2 fL High 82.0-98.0 [facility] Comment on above: Performed By: #### L [id number] #### [facility] ([facility]) [address] [place] [address] PLATELETS (10*3/UL) IN BLOOD AUTOMATED COUNT 188 10*3/uL Normal 150-400 [facility] Comment on above: Performed By: #### L [id number] #### [facility] ([facility]) [address] [place] [address] RBC (Bld) [#/Vol] 3.82 10*6/uL Low 4.20-5.70 [facility] Comment on above: Performed By: #### L [id number] #### [facility] ([facility]) [address] [place] [address] WBC (Bld) [#/Vol] 8.42 10*3/uL Normal 4.00-10.60 [facility] Comment on above: Performed By: #### L [id number] #### [facility] ([facility]) [address] [place] [address] CORTISOLon 04-22-2023 CORTISOL (UG/DL) IN SER/PLAS 9.8 ug/dL High 0-9 [facility] Comment on above: Order Comment: 60 mi n draw Performed By: #### L [id number] #### [facility] [address] [place] [address] CORTISOL (UG/DL) IN SER/PLAS 8.3 ug/dL Normal 0-9 [facility] Comment on above: Order Comment: Obtai n 30min after cosyntropin injection. Performed By: #### L [id number] #### [facility] [address] [place] [address] CORTISOL (UG/DL) IN SER/PLAS 1.8 ug/dL Low 6-23 [facility] Comment on above: Performed By: #### L [id number] #### [facility] ([facility]) [address] [place] [address] MAGNESIUMon 04-22-2023 Magnesium [Mass/Vol] 1.7 mg/dL Low 1.9-2.7 [facility] Comment on above: Performed By: #### L [id number] #### [facility] ([facility]) [address] [place] [address] NURSNOTEon 04-22-2023 NURSNOTE Cortisol lab draw to be collected at 1305; pt difficult draw. X 2 attempts failed in right hand and left upper forearm. Successful draw at 1320 in right upper arm. Specimen sent to lab. Pt tolerated procedure without difficulty. Call light at patient's side and pt denies further needs at this time. Normal [facility] 30on 04-21-2023 30 Problem: Pain - Adul [...] for the shift include pain control/safety Normal [facility] BASIC METABOLIC PANELon 10-0 Anion gap [Moles/Vol] 13 mmol/L Normal - [facility] Comment on above: Performed By: #### L [id number] #### [facility] ([facility]) [address] [place] [address] Calcium [Mass/Vol] 9.0 mg/dL Normal 8.6-10.3 [facility] Comment on above: Performed By: #### L [id number] #### [facility] [address] [place] [address] Chloride [Moles/Vol] 102 mmol/L Normal 98-107 [facility] Comment on above: Performed By: #### L [id number] #### [facility] ([facility]) [address] [place] [address] CO2 [Moles/Vol] 18 mmol/L Low - [facility] Comment on above: Performed By: #### L [id number] #### [facility] ([facility]) [address] [place] [address] Creatinine [Mass/Vol] 1.18 mg/dL Normal 0.70-1.30 [facility] Comment on above: Performed By: #### L [id number] #### [facility] ([facility]) [address] [place] [address] GLOMERULAR FILTRATION RATE ML/MIN/1.73 SQ M.PREDICTED 71.5 mL/min/1.73m*2 Normal >60.0 [facility] Comment on above: Result Comment: The [facility]???s estimated glomerular filtration rate (eGFR) will no [...] individuals. Performed By: #### L [id number] #### [facility] ([facility]) [address] [place] [address] Glucose [Mass/Vol] 88 mg/dL Normal 70-100 [facility] Comment on above: Performed By: #### L [id number] #### [facility] ([facility]) [address] [place] [address] Potassium [Moles/Vol] 3.7 mmol/L Normal 3.5-5.1 [facility] Comment on above: Performed By: #### L [id number] #### [facility] ([facility]) [address] [place] [address] Sodium [Moles/Vol] 129 mmol/L Low 136-145 [facility] Comment on above: Performed By: #### L [id number] #### [facility] ([facility]) [address] [place] [address] Urea nitrogen [Mass/Vol] 12 mg/dL Normal 7-25 [facility] Comment on above: Performed By: #### L [id number] #### [facility] ([facility]) [address] [place] [address] UREA NITROGEN/CREATININE (MASS RATIO) IN SER/PLAS 10.2 Normal [facility] Comment on above: Performed By: #### L [id number] #### [facility] ([facility]) [address] [place] [address] CBCon 04-21-2023 Erythrocyte distribution width (RBC) [Ratio] 16.6 % High 11.5-15.0 [facility] Comment on above: Performed By: #### L [id number] #### [facility] ([facility]) [address] [place] [address] ERYTHROCYTE MEAN CORPUSCULAR HEMOGLOBIN CONCENTRATION (G/DL) BY AUTOMATED 34.5 g/dL Normal 32.0-35.0 [facility] Comment on above: Performed By: #### L [id number] #### [facility] [address] [place] [address] Hematocrit (Bld) [Volume fraction] 39.7 % Normal 39.0-55.0 [facility] Comment on above: Performed By: #### L [id number] #### [facility] ([facility]) [address] [place] [address] Hemoglobin (Bld) [Mass/Vol] 13.7 g/dL Normal 13.0-17.0 [facility] Comment on above: Performed By: #### L [id number] #### [facility] ([facility]) [address] [place] [address] MCH (RBC) [Entitic mass] 33.4 pg High 27.0-33.0 [facility] Comment on above: Performed By: #### L [id number] #### [facility] ([facility]) [address] [place] [address] MCV (RBC) [Entitic vol] 96.8 fL Normal 82.0-98.0 [facility] Comment on above: Performed By: #### L [id number] #### [facility] ([facility]) [address] [place] [address] PLATELETS (10*3/UL) IN BLOOD AUTOMATED COUNT 179 10*3/uL Normal 150-400 [facility] Comment on above: Performed By: #### L [id number] #### [facility] ([facility]) [address] [place] [address] RBC (Bld) [#/Vol] 4.10 10*6/uL Low 4.20-5.70 [facility] Comment on above: Performed By: #### L [id number] #### [facility] ([facility]) [address] [place] [address] WBC (Bld) [#/Vol] 8.95 10*3/uL Normal 4.00-10.60 [facility] Comment on above: Performed By: #### L [id number] #### [facility] ([facility]) [address] [place] [address] CORTISOLon 04-21-2023 CORTISOL (UG/DL) IN SER/PLAS 1.8 ug/dL Low 6-23 [facility] Comment on above: Performed By: #### L [id number] #### [facility] ([facility]) [address] [place] [address] CREATININE, URINE, RANDOMon 04-21-2023 Creatinine (U) [Mass/Vol] 94.0 mg/dL Normal 26-299 [facility] Comment on above: Performed By: #### L [id number] #### [facility] ([facility]) [address] [place] [address] MAGNESIUMon 04-21-2023 Magnesium [Mass/Vol] 1.8 mg/dL Low 1.9-2.7 [facility] Comment on above: Performed By: #### L [id number] #### [facility] ([facility]) [address] [place] [address] NURSNOTEon 04-21-[address] Maeve baca of TSH 188.4, sodium 129, and creatinine 1.33. She stated sodium and creatinine are improving and also pt will need IV synthroid replacement and she will leave it to primary to replace but told financial underwriter to still give oral synthroid in AM as scheduled. Normal [facility] SODIUM, URINE, RANDOMon 10-0 Sodium (U) [Moles/Vol] 33 mmol/L Normal [facility] Comment on above: Performed By: #### L [id number] #### [facility] ([facility]) [address] [place] [address] T3, FREEon 04-21-2023 TRIIODOTHYRONINE (T3) FREE (PG/ML) IN SER/PLAS 1.9 pg/mL Low 2.5-3.9 [facility] Comment on above: Performed By: #### L [id number] #### [facility] ([facility]) [address] [place] [address] URINALYSISon 04-21-2023 BILIRUBIN, TOTAL PRESENCE IN URINE Negative Normal Negative [facility] Comment on above: Order Comment: Micro scopics not performed on urines with negative chemical reactions unless requested on original order. Performed By: #### L [id number] #### [facility] ([facility]) [address] [place] [address] Clarity (U) Clear Normal Clear [facility] Comment on above: Order Comment: Micro scopics not performed on urines with negative chemical reactions unless requested on original order. Performed By: #### L [id number] #### [facility] ([facility]) [address] [place] [address] Color (U) Yellow Normal Yellow [facility] Comment on above: Order Comment: Micro scopics not performed on urines with negative chemical reactions unless requested on original order. Performed By: #### L [id number] #### [facility] ([facility]) [address] [place] [address] Glucose (U) [Mass/Vol] Negative Normal Negative [facility] Comment on above: Order Comment: Micro scopics not performed on urines with negative chemical reactions unless requested on original order. Performed By: #### L [id number] #### [facility] ([facility]) [address] [place] [address] HEMOGLOBIN PRESENCE IN URINE Negative Normal Negative [facility] Comment on above: Order Comment: Micro scopics not performed on urines with negative chemical reactions unless requested on original order. Performed By: #### L [id number] #### [facility] ([facility]) [address] [place] [address] Ketones Ql (U) Trace Abnormal Negative [facility] Comment on above: Order Comment: Micro scopics not performed on urines with negative chemical reactions unless requested on original order. Performed By: #### L [id number] #### [facility] ([facility]) [address] [place] [address] LEUKOCYTE ESTERASE PRESENCE IN URINE BY TEST STRIP Negative Normal Negative [facility] Comment on above: Order Comment: Micro scopics not performed on urines with negative chemical reactions unless requested on original order. Performed By: #### L [id number] #### [facility] ([facility]) [address] [place] [address] NITRITE PRESENCE IN URINE Negative Normal Negative [facility] Comment on above: Order Comment: Micro scopics not performed on urines with negative chemical reactions unless requested on original order. Performed By: #### L [id number] #### [facility] ([facility]) [address] [place] [address] pH (U) 5.0 [pH] Normal 5.0-8.0 [facility] Comment on above: Order Comment: Micro scopics not performed on urines with negative chemical reactions unless requested on original order. Performed By: #### L [id number] #### [facility] ([facility]) [address] [place] [address] Protein (U) [Mass/Vol] Negative Normal Negative [facility] Comment on above: Order Comment: Micro scopics not performed on urines with negative chemical reactions unless requested on original order. Performed By: #### L [id number] #### [facility] ([facility]) [address] [place] [address] Specific gravity (U) [Rel density] 1.011 Low 1.015-1.020 [facility] Comment on above: Order Comment: Micro scopics not performed on urines with negative chemical reactions unless requested on original order. Performed By: #### L [id number] #### [facility] ([facility]) [address] [place] [address] B-TYPE NATRIURETIC PEPTIDEon 04-20-2023 Natriuretic peptide B (Bld) [Mass/Vol] 17 pg/mL Normal 0-100 [facility] Comment on above: Performed By: #### L [id number] #### [facility] ([facility]) [address] [place] [address] CBC WITH AUTO DIFFERENTIALon 04-20-2023 Basophils (Bld) [#/Vol] 0.08 10*3/uL Normal 0.00-0.20 [facility] Comment on above: Performed By: #### L [id number] #### [facility] ([facility]) [address] [place] [address] Basophils/100 WBC (Bld) 0.8 % Normal 0.0-1.0 [facility] Comment on above: Performed By: #### L [id number] #### [facility] ([facility]) [address] [facility] [place] [address] Eosinophils (Bld) [#/Vol] 0.11 10*3/uL Normal 0.00-0.50 [facility] Comment on above: Performed By: #### L [id number] #### [facility] ([facility]) [address] [place] [address] Eosinophils/100 WBC (Bld) 1.2 % Normal 0.0-6.0 [facility] Comment on above: Performed By: #### L [id number] #### [facility] [address] [place] [address] Erythrocyte distribution width (RBC) [Ratio] 16.5 % High 11.5-15.0 [facility] Comment on above: Performed By: #### L [id number] #### [facility] [address] [place] [address] ERYTHROCYTE MEAN CORPUSCULAR HEMOGLOBIN CONCENTRATION (G/DL) BY AUTOMATED 33.5 g/dL Normal 32.0-35.0 [facility] Comment on above: Performed By: #### L [id number] #### [facility] ([facility]) [address] [place] [address] Hematocrit (Bld) [Volume fraction] 42.7 % Normal 39.0-55.0 [facility] Comment on above: Performed By: #### L [id number] #### [facility] ([facility]) [address] [place] [address] Hemoglobin (Bld) [Mass/Vol] 14.3 g/dL Normal 13.0-17.0 [facility] Comment on above: Performed By: #### L [id number] #### [facility] ([facility]) [address] [address] Immature granulocytes (Bld) [#/Vol] 0.11 10*3/uL Normal 0.00-0.20 [facility] Comment on above: Performed By: #### L [id number] #### [facility] ([facility]) [address] [place] [address] Immature granulocytes/100 WBC (Bld) 1.2 % High 0.0-1.0 [facility] Comment on above: Performed By: #### L [id number] #### [facility] ([facility]) [address] [place] [address] Lymphocytes (Bld) [#/Vol] 3.02 10*3/uL Normal 1.20-4.00 [facility] Comment on above: Performed By: #### L [id number] #### [facility] ([facility]) [address] [place] [address] Lymphocytes/100 WBC (Bld) 32.0 % Normal 20.0-45.0 [facility] Comment on above: Performed By: #### L [id number] #### [facility] ([facility]) [address] [place] [address] MCH (RBC) [Entitic mass] 32.5 pg Normal 27.0-33.0 [facility] Comment on above: Performed By: #### L [id number] #### [facility] ([facility]) [address] [place] [address] MCV (RBC) [Entitic vol] 97.0 fL Normal 82.0-98.0 [facility] Comment on above: Performed By: #### L [id number] #### [facility] ([facility]) [address] [facility] [place] [address] Monocytes (Bld) [#/Vol] 0.31 10*3/uL Normal 0.10-1.00 [facility] Comment on above: Performed By: #### L [id number] #### [facility] ([facility]) [address] [place] [address] Monocytes/100 WBC (Bld) 3.3 % Low 5.0-12.0 [facility] Comment on above: Performed By: #### L [id number] #### [facility] ([facility]) [address] [place] [address] Neutrophils (Bld) [#/Vol] 5.81 10*3/uL Normal 1.60-7.60 [facility] Comment on above: Performed By: #### L [id number] #### [facility] ([facility]) [address] [place] [address] Neutrophils/100 WBC (Bld) 61.5 % Normal 40.0-72.0 [facility] Comment on above: Performed By: #### L [id number] #### [facility] ([facility]) [address] [place] [address] NRBC (PER 100 WBCS) BY AUTOMATED COUNT 0.0 % Normal 0 [facility] Comment on above: Performed By: #### L [id number] #### [facility] ([facility]) [address] [place] [address] PLATELETS (10*3/UL) IN BLOOD AUTOMATED COUNT 212 10*3/uL Normal 150-400 [facility] Comment on above: Performed By: #### L [id number] #### [facility] ([facility]) [address] [place] [address] RBC (Bld) [#/Vol] 4.40 10*6/uL Normal 4.20-5.70 [facility] Comment on above: Performed By: #### L [id number] #### [facility] ([facility]) [address] [place] [address] WBC (Bld) [#/Vol] 9.44 10*3/uL Normal 4.00-10.60 [facility] Comment on above: Performed By: #### L [id number] #### [facility] ([facility]) [address] [place] [address] COMPREHENSIVE METABOLIC PANE Dawit 04-20-2023 Albumin [Mass/Vol] 5.1 g/dL Normal 3.5-5.7 [facility] Comment on above: Performed By: #### L [id number] #### [facility] ([facility]) [address] [place] [address] ALP [Catalytic activity/Vol] 48 U/L Normal 34-104 [facility] Comment on above: Performed By: #### L [id number] #### [facility] ([facility]) [address] [place] [address] ALT [Catalytic activity/Vol] 8 U/L Normal 7-52 [facility] Comment on above: Performed By: #### L [id number] #### [facility] ([facility]) [address] [place] [address] Anion gap [Moles/Vol] 18 mmol/L Normal 7-20 [facility] Comment on above: Performed By: #### L [id number] #### [facility] ([facility]) [address] [place] [address] AST [Catalytic activity/Vol] 12 U/L Low 13-39 [facility] Comment on above: Performed By: #### L [id number] #### [facility] ([facility]) [address] [place] [address] Bilirubin [Mass/Vol] 0.6 mg/dL Normal 0.3-1.0 [facility] Comment on above: Performed By: #### L [id number] #### [facility] ([facility]) [address] [place] [address] Calcium [Mass/Vol] 9.9 mg/dL Normal 8.6-10.3 [facility] Comment on above: Performed By: #### L [id number] #### [facility] ([facility]) [address] [place] [address] Chloride [Moles/Vol] 96 mmol/L Low 98-107 [facility] Comment on above: Performed By: #### L [id number] #### [facility] ([facility]) [address] [place] [address] CO2 [Moles/Vol] 19 mmol/L Low 21-31 [facility] Comment on above: Performed By: #### L [id number] #### [facility] ([facility]) [address] [place] [address] Creatinine [Mass/Vol] 1.33 mg/dL High 0.70-1.30 [facility] Comment on above: Performed By: #### L [id number] #### [facility] ([facility]) [address] [place] [address] GLOMERULAR FILTRATION RATE ML/MIN/1.73 SQ M.PREDICTED 62.0 mL/min/1.73m*2 Normal >60.0 [facility] Comment on above: Result Comment: The [facility]???s estimated glomerular filtration rate (eGFR) will no [...] individuals. Performed By: #### L [id number] #### [facility] ([facility]) [address] [place] [address] Glucose [Mass/Vol] 75 mg/dL Normal 70-100 [facility] Comment on above: Performed By: #### L [id number] #### [facility] ([facility]) [address] [place] [address] Potassium [Moles/Vol] 3.6 mmol/L Normal 3.5-5.1 [facility] Comment on above: Performed By: #### L [id number] #### [facility] ([facility]) [address] [place] [address] Protein [Mass/Vol] 8.3 g/dL Normal 6.0-8.3 [facility] Comment on above: Performed By: #### L [id number] #### [facility] ([facility]) [address] [place] [address] Sodium [Moles/Vol] 129 mmol/L Low 136-145 [facility] Comment on above: Performed By: #### L [id number] #### [facility] ([facility]) [address] [address] Urea nitrogen [Mass/Vol] 10 mg/dL Normal 7-25 [facility] Comment on above: Performed By: #### L [id number] #### [facility] ([facility]) [address] [place] [address] UREA NITROGEN/CREATININE (MASS RATIO) IN SER/PLAS 7.5 Normal [facility] Comment on above: Performed By: #### L [id number] #### [facility] ([facility]) [address] [address] CONSULTon 04-20-2023 CONSULT -- Attestation signed by [...] came to hospital as a transfer from [facility] due to concern for mobitz II and [...] History No family history on file. Allergies [place] and Penicillins Medications (Not in a hospital [...] Value Ventricular Rate [address] Interval 132 QRS DURATION 86 QT Interval 430 QTC CALCULATION(BAZETT) 425 P [place] 43 R-[place] -12 T Wave [place] 73 Impression Sinus bradycardia Low voltage QRS [...] continue to follow. Mireille Gilbert MD Director Of Radio Services PGY-4 [facility] Pager # [phone] Normal [facility] MAGNESIUMon 04-20-2023 Magnesium [Mass/Vol] 1.9 mg/dL Normal 1.9-2.7 [facility] Comment on above: Performed By: #### L [id number] #### [facility] ([facility]) [address] [place] [address] NURSNOTEon 04-20-2023 NURSNOTE Report called to BRISEYDA Noble Normal [facility] Orders Onlyon 04-20-2023 Orders Only [id number] Rehan Poole 1965 M Date Provider Department Center 04/20/2023 [facility] [place] [facility] No family history on file Normal [facility] T4, FREEon 04-20-2023 THYROXINE (T4) FREE (NG/DL) IN SER/PLAS <0.25 Low 0.71-1.85 [facility] Comment on above: Performed By: #### L [id number] #### [facility] ([facility]) [address] [place] [address] TROPONIN Ion 04-20-2023 Troponin I.cardiac [Mass/Vol] 0.00 ng/mL Normal 0.00-0.04 [facility] Comment on above: Performed By: #### L [id number] #### [facility] ([facility]) [address] [place] [address] TSH3 REFLEX TO FT4on 023 THYROTROPIN (MIU/L) IN SER/PLAS BY DETECTION LIMIT <= 0.05 MIU/L 188.64 mIU/L Critically high 0.34-5.60 [facility] Comment on above: Performed By: #### L [id number] #### [facility] ([facility]) [address] [place] [address] CBC AUTO DIFFon 11-28-2022 BASO # 0.0 103/ul Normal 0.0-0.1 [facility] Comment on above: Performed By: #### B FACILITIES PLANNER, T7, CMP, TSH #### [facility] Laboratory [address] [place] [address] Dr. Get Whitten Basophils/100 WBC (Bld) 0.4 % Normal 0.2-2.0 [facility] Comment on above: Performed By: #### B FACILITIES PLANNER, T7, CMP, TSH #### [facility] [address] [place] [address] Dr. Get Whitten EO # 0.1 103/ul Normal 0.0-0.7 [facility] Comment on above: Performed By: #### B FACILITIES PLANNER, T7, CMP, TSH #### [facility] [address] [place] [address] Dr. Get Whitten Eosinophils/100 WBC (Bld) 0.5 % Critically low 0.9-7.0 [facility] Comment on above: Performed By: #### B FACILITIES PLANNER, T7, CMP, TSH #### [facility] [address] [place] [address] Dr. Get Whitten Erythrocyte distribution width (RBC) [Ratio] 18.6 % Critically high 11.0-15.0 [facility] Comment on above: Performed By: #### B FACILITIES PLANNER, T7, CMP, TSH #### [facility] [address] [place] [address] Dr. Get Whitten Hematocrit (Bld) [Volume fraction] 33.3 % Critically low 42.0-54.0 [facility] Comment on above: Performed By: #### B FACILITIES PLANNER, T7, CMP, TSH #### [facility] [address] [place] [address] Dr. Get Whitten Hemoglobin (Bld) [Mass/Vol] 11.1 g/dL Critically low 14.0-18.0 [facility] Comment on above: Performed By: #### B FACILITIES PLANNER, T7, CMP, TSH #### [facility] [address] [place] [address] Dr. Get Whitten IG # 0.30 10e3/ul Critically high 0.00-0.03 [facility] Comment on above: Performed By: #### B FACILITIES PLANNER, T7, CMP, TSH #### [facility] [address] [place] [address] Dr. Get Whitten IG % 3.3 % Critically high 0.0-0.5 [facility] Comment on above: Performed By: #### B FACILITIES PLANNER, T7, CMP, TSH #### [facility] [address] [place] [address] Dr. Get Whitten LYMPH # 3.0 103/ul Normal 1.2-3.8 [facility] Comment on above: Performed By: #### B FACILITIES PLANNER, T7, CMP, TSH #### [facility] [address] [place] [address] Dr. Get Whitten Lymphocytes/100 WBC (Bld) 32.7 % Normal 20.5-60.0 [facility] Comment on above: Performed By: #### B FACILITIES PLANNER, T7, CMP, TSH #### [facility] [address] [place] [address] Dr. Get Whitten MANUAL DIFF REQ NO Normal [facility] Comment on above: Performed By: #### B FACILITIES PLANNER, T7, CMP, TSH #### [facility] [address] [place] [address] Dr. Get Whitten MCH (RBC) [Entitic mass] 34.8 pg Critically high 25.9-34.0 [facility] Comment on above: Performed By: #### B FACILITIES PLANNER, T7, CMP, TSH #### [facility] [address] [place] [address] Dr. Get Whitten MCHC (RBC) [Mass/Vol] 33.3 g/dL Normal 29.9-35.2 [facility] Comment on above: Performed By: #### B FACILITIES PLANNER, T7, CMP, TSH #### [facility] [address] [place] [address] Dr. Get Whitten MCV (RBC) [Entitic vol] 104.4 fL Critically high 80.0-94.0 [facility] Comment on above: Performed By: #### B FACILITIES PLANNER, T7, CMP, TSH #### [facility] [address] [place] [address] Dr. Get Whitten MONO # 0.4 103/ul Normal 0.3-0.8 [facility] Comment on above: Performed By: #### B FACILITIES PLANNER, T7, CMP, TSH #### [facility] [address] [place] [address] Dr. Get Whitten Monocytes/100 WBC (Bld) 4.2 % Normal 1.7-12.0 [facility] Comment on above: Performed By: #### B FACILITIES PLANNER, T7, CMP, TSH #### [facility] [address] [place] [address] Dr. Get Whitten NEUT # 5.4 103/ul Normal 1.4-6.5 [facility] Comment on above: Performed By: #### B FACILITIES PLANNER, T7, CMP, TSH #### [facility] [address] [place] [address] Dr. Get Whitten Neutrophils/100 WBC (Bld) 58.9 % Normal 43.0-75.0 [facility] Comment on above: Performed By: #### B FACILITIES PLANNER, T7, CMP, TSH #### [facility] [address] [place] [address] Dr. Get Whitten Platelet mean volume (Bld) [Entitic vol] 9.5 fL Normal 9.5-13.5 [facility] Comment on above: Performed By: #### B FACILITIES PLANNER, T7, CMP, TSH #### [facility] [address] [place] [address] Dr. Get Whitten PLT 187 103/ul Normal 150-450 [facility] Comment on above: Performed By: #### B FACILITIES PLANNER, T7, CMP, TSH #### [facility] [address] [place] [address] Dr. Get Whitten RBC 3.19 106/ul Critically low 4.70-6.10 [facility] Comment on above: Performed By: #### B FACILITIES PLANNER, T7, CMP, TSH #### [facility] [address] [place] [address] Dr. Get Whitten WBC 9.1 103/ul Normal 4.0-11.0 [facility] Comment on above: Performed By: #### B FACILITIES PLANNER, T7, CMP, TSH #### [facility] [address] [place] [address] Dr. Get Whitten PROF 14(COMP METB)on 023 Albumin [Mass/Vol] 3.9 g/dL Normal 3.4-5.0 [facility] Comment on above: Performed By: #### C MP #### [facility] [address] [place] [address] Dr. Get Whitten Albumin/Globulin [Mass ratio] 1.1 {ratio} Normal [facility] Comment on above: Performed By: #### C MP #### [facility] [address] [place] [address] Dr. Get Whitten ALP [Catalytic activity/Vol] 34 U/L Critically low 46-116 [facility] Comment on above: Performed By: #### C MP #### [facility] [address] [place] [address] Dr. Get Whitten ALT [Catalytic activity/Vol] 21 U/L Normal 16-63 [facility] Comment on above: Performed By: #### C MP #### [facility] [address] [place] [address] Dr. Get Whitten Anion gap [Moles/Vol] 17.7 mmol/L Normal [facility] Comment on above: Performed By: #### C MP #### [facility] [address] [place] [address] Dr. Get Whitten AST [Catalytic activity/Vol] 15 U/L Normal 15-37 [facility] Comment on above: Performed By: #### C MP #### [facility] [address] [place] [address] Dr. Get Whitten Bilirubin [Mass/Vol] 0.3 mg/dL Normal 0.2-1.0 [facility] [facility] Comment on above: Performed By: #### C MP #### [facility] [address] [address] [address] Get Whitten Calcium [Mass/Vol] 8.7 mg/dL Normal 8.5-10.1 [facility] Comment on above: Performed By: #### C MP #### [facility] [address] [address] [address] Get Whitten Chloride [Moles/Vol] 99 mmol/L Normal 98-107 [facility] Comment on above: Performed By: #### C MP #### [facility] [address] [address] [address] eGt Whitten CO2 [Moles/Vol] 21.8 mmol/L Normal 21.0-32.0 [facility] Comment on above: Performed By: #### C MP #### [facility] [address] [address] [address] Get Whitten Creatinine [Mass/Vol] 1.69 mg/dL Critically high 0.70-1.30 [facility] Comment on above: Performed By: #### C MP #### [facility] [address] [place] [address] Dr. Get Whitten EGFR-AF LEBANESE 51 mL/min/1.73m2 Critically low >=60 [facility] Comment on above: Performed By: #### C MP #### [facility] [address] [address] [address] Get Whitten EGFR-NON AF LEBANESE 42 mL/min/1.73m2 Critically low >=60 [facility] Comment on above: Performed By: #### C MP #### [facility] [address] [address] [address] Get Whitten Globulin (S) [Mass/Vol] 3.6 g/dL Normal [facility] Comment on above: Performed By: #### C MP #### [facility] [address] [address] [address] Get Whitten Glucose [Mass/Vol] 96 mg/dL Normal 74-106 [facility] Comment on above: Performed By: #### C MP #### [facility] [address] [address] [address] Get Whitten Potassium [Moles/Vol] 3.5 mmol/L Normal 3.5-5.1 [facility] Comment on above: Performed By: #### C MP #### [facility] [address] [address] [address] Get Whitten Protein [Mass/Vol] 7.5 g/dL Normal 6.4-8.2 [facility] Comment on above: Performed By: #### C MP #### [facility] [address] [address] [address] Get Whitten Sodium [Moles/Vol] 135 mmol/L Critically low 136-145 [facility] Comment on above: Performed By: #### C MP #### [facility] [address] [address] [address] Get Whitten Urea nitrogen [Mass/Vol] 15.0 mg/dL Normal 7.0-18.0 [facility] Comment on above: Performed By: #### C MP #### [facility] [address] [address] [address] Get Whitten Urea nitrogen/Creatinine [Mass ratio] 8.9 mg/mg Normal [facility] Comment on above: Performed By: #### C MP #### [facility] [address] [address] [address] Get Whitten T3, TOTAL (TRIIODOTHYRONINE) on 11-28-2022 T3, TOTAL <20 Critically low 71-180 [facility] Comment on above: Performed By: #### C VDTBH #### [facility] [address] [address] [address] Get Whitten AMMONIAon 11-27-2022 Ammonia (P) [Mass/Vol] ug/dL Critically low 11-32 [facility] Comment on above: Performed By: #### C MP #### [facility] [address] [address] [address] Get Whitten BNPon 11-27-2022 Natriuretic peptide B (Bld) [Mass/Vol] 50.0 pg/mL Normal <=900.0 [facility] Comment on above: Performed By: #### B FACILITIES PLANNER, T7, CMP, TSH #### [facility] [address] [place] [address] Dr. Get Whitten CARDIAC ANA ADMITon 023 CK [Catalytic activity/Vol] 173 U/L Normal 39-308 [facility] Comment on above: Performed By: #### B FACILITIES PLANNER, T7, CMP, TSH #### [facility] [address] [place] [address] Dr. Get Whitten CK.MB [Mass/Vol] 1.64 ng/mL Normal <=3.60 [facility] Comment on above: Performed By: #### B FACILITIES PLANNER, T7, CMP, TSH #### [facility] [address] [place] [address] Dr. Get Whitten HSTROP 4.3 pg/mL Normal 4.0-76.1 [facility] Comment on above: Result Comment: CUT- OFF POINTS HAVE BEEN ESTABLISHED BASED ON THE FOURTH UNIVERSAL DEFINITIONS OF MYOCARDIAL INFARCTION. THE UPPER REFERENCE LIMIT (URL) OF TROPONIN, DEFINED THE 99TH PERCENTILE OF cTnI DISTRIBUTION IN A REFERENCE POPULATION, HAS BEEN CONFIRMED THE DECISION THRESHOLD FOR IA DIAGNOSIS. Performed By: #### B FACILITIES PLANNER, T7, CMP, TSH #### [facility] [address] [place] [address] Dr. Get Whitten RAFA 72 ng/mL Normal 16-96 [facility] Comment on above: Performed By: #### B FACILITIES PLANNER, T7, CMP, TSH #### [facility] [address] [place] [address] Dr. Get Whitten CBC AUTO DIFFon 11-27-2022 BASO # 0.1 103/ul Normal 0.0-0.1 [facility] Comment on above: Performed By: #### C VDTBH #### [facility] [address] [place] [address] Dr. Get Whitten Basophils/100 WBC (Bld) 0.6 % Normal 0.2-2.0 [facility] Comment on above: Performed By: #### C VDTBH #### [facility] [address] [place] [address] Dr. Get Whitten EO # 0.0 103/ul Normal 0.0-0.7 [facility] Comment on above: Performed By: #### C VDTBH #### [facility] [address] [place] [address] Dr. Get Whitten Eosinophils/100 WBC (Bld) 0.4 % Critically low 0.9-7.0 [facility] Comment on above: Performed By: #### C VDTBH #### [facility] [address] [place] [address] Dr. Get Whitten Erythrocyte distribution width (RBC) [Ratio] 18.6 % Critically high 11.0-15.0 [facility] Comment on above: Performed By: #### C VDTBH #### [facility] [address] [place] [address] Dr. Get Whitten Hematocrit (Bld) [Volume fraction] 35.4 % Critically low 42.0-54.0 [facility] Comment on above: Performed By: #### C VDTBH #### [facility] [address] [place] [address] Dr. Get Whitten Hemoglobin (Bld) [Mass/Vol] 11.9 g/dL Critically low 14.0-18.0 [facility] Comment on above: Performed By: #### C VDTBH #### [facility] [address] [place] [address] Dr. Get Whitten IG # 0.28 10e3/ul Critically high 0.00-0.03 [facility] Comment on above: Performed By: #### C VDTBH #### [facility] [address] [place] [address] Dr. Get Whitten IG % 3.5 % Critically high 0.0-0.5 [facility] Comment on above: Performed By: #### C VDTBH #### [facility] [address] [place] [address] Dr. Get Whitten LYMPH # 3.3 103/ul Normal 1.2-3.8 [facility] Comment on above: Performed By: #### C VDTBH #### [facility] [address] [place] [address] Dr. Get Whitten Lymphocytes/100 WBC (Bld) 41.6 % Normal 20.5-60.0 [facility] Comment on above: Performed By: #### C VDTBH #### [facility] [address] [place] [address] Dr. Get Whitten MANUAL DIFF REQ NO Normal [facility] Comment on above: Performed By: #### C VDTBH #### [facility] [address] [place] [address] Dr. Get Whitten MCH (RBC) [Entitic mass] 35.1 pg Critically high 25.9-34.0 [facility] Comment on above: Performed By: #### C VDTBH #### [facility] [address] [place] [address] Dr. Get Whitten MCHC (RBC) [Mass/Vol] 33.6 g/dL Normal 29.9-35.2 [facility] Comment on above: Performed By: #### C VDTBH #### [facility] [address] [place] [address] Dr. Get Whitten MCV (RBC) [Entitic vol] 104.4 fL Critically high 80.0-94.0 [facility] Comment on above: Performed By: #### C VDTBH #### [facility] [address] [place] [address] Dr. Get Whitten MONO # 0.4 103/ul Normal 0.3-0.8 [facility] Comment on above: Performed By: #### C VDTBH #### [facility] [address] [place] [address] Dr. Get Whitten Monocytes/100 WBC (Bld) 5.0 % Normal 1.7-12.0 [facility] Comment on above: Performed By: #### C VDTBH #### [facility] [address] [place] [address] Dr. Get Whitten NEUT # 3.9 103/ul Normal 1.4-6.5 [facility] Comment on above: Performed By: #### C VDTBH #### [facility] [address] [place] [address] Dr. Get Whitten Neutrophils/100 WBC (Bld) 48.9 % Normal 43.0-75.0 [facility] Comment on above: Performed By: #### C VDTBH #### [facility] [address] [place] [address] Dr. Get Whitten Platelet mean volume (Bld) [Entitic vol] 9.5 fL Normal 9.5-13.5 [facility] Comment on above: Performed By: #### C VDTBH #### [facility] [address] [place] [address] Dr. Get Whitten PLT 182 103/ul Normal 150-450 [facility] Comment on above: Performed By: #### C VDTBH #### [facility] [address] [place] [address] Dr. Get Whitten RBC 3.39 106/ul Critically low 4.70-6.10 [facility] Comment on above: Performed By: #### C VDTBH #### [facility] [address] [place] [address] Dr. Get Whitten WBC 8.0 103/ul Normal 4.0-11.0 [facility] Comment on above: Performed By: #### C VDTBH #### [facility] [address] [place] [address] CSPINE WO CONon [...] SHEN SOSA Date: 2022-11-27 11:26 Normal [facility] CT STROKE HEAD WOon 11-28-19 CT STROKE [...] SHEN SOSA Date: 2022-11-27 11:16 Normal [facility] Covid-19 PCR (CVDTBH)on 11-13 SARS-CoV-2 (COVID-19) RNA ASHLEE+probe Ql (Unsp spec) Not detected Normal NOT DETECTED [facility] Comment on above: Result Comment: THIS TEST IS NOT APPROVED BY THE FDA. IT HAS BEEN AUTHORIZED FOR USE UNDER AN EMERGENCY USE AUTHORIZATION. Performed By: #### C MP #### [facility] [address] [address] [address] Get Whitten ETHANOL (BLD ALC)on 11-28-19 ALC NOTE NOTE: 80 mg/dl is th e legal limit for a blood alcohol level Normal [facility] Comment on above: Performed By: #### B FACILITIES PLANNER, T7, CMP, TSH #### [facility] [address] [place] [address] Dr. Get Whitten Ethanol [Mass/Vol] mg/dL Normal [facility] Comment on above: Performed By: #### B FACILITIES PLANNER, T7, CMP, TSH #### [facility] [address] [address] [address] Get Whitten MAGNESIUMon 11-27-2022 Magnesium [Mass/Vol] 2.3 mg/dL Normal 1.8-2.4 [facility] Comment on above: Performed By: #### B FACILITIES PLANNER, T7, CMP, TSH #### [facility] [address] [place] [address] Dr. Get Whitten PROF 14(COMP METB)on 023 Albumin [Mass/Vol] 4.1 g/dL Normal 3.4-5.0 [facility] Comment on above: Performed By: #### B FACILITIES PLANNER, T7, CMP, TSH #### [facility] [address] [place] [address] Dr. Get Whitten Albumin/Globulin [Mass ratio] 1.1 {ratio} Normal [facility] Comment on above: Performed By: #### B FACILITIES PLANNER, T7, CMP, TSH #### [facility] [address] [place] [address] Dr. Get Whitten ALP [Catalytic activity/Vol] 36 U/L Critically low 46-116 [facility] Comment on above: Performed By: #### B FACILITIES PLANNER, T7, CMP, TSH #### [facility] [address] [place] [address] Dr. Get Whitten ALT [Catalytic activity/Vol] 15 U/L Critically low 16-63 [facility] Comment on above: Performed By: #### B FACILITIES PLANNER, T7, CMP, TSH #### [facility] [address] [place] [address] Dr. Get Whitten Anion gap [Moles/Vol] 15.0 mmol/L Normal [facility] Comment on above: Performed By: #### B FACILITIES PLANNER, T7, CMP, TSH #### [facility] [address] [address] [address] Get Whitten AST [Catalytic activity/Vol] 13 U/L Critically low 15-37 [facility] Comment on above: Performed By: #### B FACILITIES PLANNER, T7, CMP, TSH #### [facility] [address] [address] [address] Get Whitten Bilirubin [Mass/Vol] 0.3 mg/dL Normal 0.2-1.0 [facility] Comment on above: Performed By: #### B FACILITIES PLANNER, T7, CMP, TSH #### [facility] [address] [place] [address] Dr. Get Whitten Calcium [Mass/Vol] 9.1 mg/dL Normal 8.5-10.1 [facility] Comment on above: Performed By: #### B FACILITIES PLANNER, T7, CMP, TSH #### [facility] [address] [place] [address] Dr. Get Whitten Chloride [Moles/Vol] 101 mmol/L Normal 98-107 [facility] Comment on above: Performed By: #### B FACILITIES PLANNER, T7, CMP, TSH #### [facility] [address] [place] [address] Dr. Get Whitten CO2 [Moles/Vol] 22.2 mmol/L Normal 21.0-32.0 [facility] Comment on above: Performed By: #### B FACILITIES PLANNER, T7, CMP, TSH #### [facility] [address] [place] [address] Dr. Get Whitten Creatinine [Mass/Vol] 1.84 mg/dL Critically high 0.70-1.30 [facility] Comment on above: Performed By: #### B FACILITIES PLANNER, T7, CMP, TSH #### [facility] [address] [place] [address] Dr. Get Whitten EGFR-AF LEBANESE 46 mL/min/1.73m2 Critically low >=60 [facility] Comment on above: Performed By: #### B FACILITIES PLANNER, T7, CMP, TSH #### [facility] [address] [place] [address] Dr. Get Whitten EGFR-NON AF LEBANESE 38 mL/min/1.73m2 Critically low >=60 [facility] Comment on above: Performed By: #### B FACILITIES PLANNER, T7, CMP, TSH #### [facility] [address] [place] [address] Dr. Get Whitten Globulin (S) [Mass/Vol] 3.6 g/dL Normal [facility] Comment on above: Performed By: #### B FACILITIES PLANNER, T7, CMP, TSH #### [facility] [address] [place] [address] Dr. Get Whitten Glucose [Mass/Vol] 87 mg/dL Normal 74-106 [facility] Comment on above: Performed By: #### B FACILITIES PLANNER, T7, CMP, TSH #### [facility] [address] [place] [address] Dr. Get Whitten Potassium [Moles/Vol] 4.2 mmol/L Normal 3.5-5.1 [facility] Comment on above: Performed By: #### B FACILITIES PLANNER, T7, CMP, TSH #### [facility] [address] [place] [address] Dr. Get Whitten Protein [Mass/Vol] 7.7 g/dL Normal 6.4-8.2 [facility] Comment on above: Performed By: #### B FACILITIES PLANNER, T7, CMP, TSH #### [facility] [address] [place] [address] Dr. Get Whitten Sodium [Moles/Vol] 134 mmol/L Critically low 136-145 [facility] Comment on above: Performed By: #### B FACILITIES PLANNER, T7, CMP, TSH #### [facility] [address] [place] [address] Dr. Get Whitten Urea nitrogen [Mass/Vol] 14.0 mg/dL Normal 7.0-18.0 [facility] Comment on above: Performed By: #### B FACILITIES PLANNER, T7, CMP, TSH #### [facility] [address] [place] [address] Dr. Get Whitten Urea nitrogen/Creatinine [Mass ratio] 7.6 mg/mg Normal [facility] Comment on above: Performed By: #### B FACILITIES PLANNER, T7, CMP, TSH #### [facility] [address] [place] [address] Dr. Get Whitten PROTIMEon 11-27-2022 INR Coag (PPP) [Relative time] 0.98 {INR} Normal [facility] Comment on above: Performed By: #### B FACILITIES PLANNER, T7, CMP, TSH #### [facility] [address] [place] [address] Dr. Get Whitten INR GUIDELINES SEE BELOW Normal [facility] Comment on above: Result Comment: JORGE RED INR: 2.0 - 3.0 CONDITIONS NOT LISTED BELOW 2.5 - 3.5 FOR PROSTHETIC HEART VALVE REPLACEMENT 2.5 - 3.5 RECURRENT THROMBOSIS Performed By: #### B FACILITIES PLANNER, T7, CMP, TSH #### [facility] [address] [place] [address] Dr. Get Whitten PT Coag (PPP) [Time] 10.4 s Normal 9.0-11.6 [facility] Comment on above: Performed By: #### B FACILITIES PLANNER, T7, CMP, TSH #### [facility] [address] [place] [address] Dr. Get Whitten PTTon 11-27-2022 aPTT Coag (Bld) [Time] 30.4 s Normal 22.3-36.2 [facility] Comment on above: Performed By: #### B FACILITIES PLANNER, T7, CMP, TSH #### [facility] [address] [place] [address] Dr. Get Whitten SYMPTOMATIC COVID-19 ANTIGEN on 11-27-2022 EUA Statement SEE BELOW Normal [facility] Comment on above: Result Comment: This [...] By: #### C MP, HSTROPN, BNP #### [facility] [address] [place] [address] Dr. Get Whitten SARS-CoV-2 (COVID-19) RNA ASHLEE+probe Ql (Unsp spec) Negative Normal NEGATIVE [facility] Comment on above: Performed By: #### C MP, HSTROPN, BNP #### [facility] [address] [address] [address] Get Whitten T4on 11-27-2022 T4 [Mass/Vol] 0.90 ug/dL Critically low 4.50-12.10 [facility] Comment on above: Performed By: #### B FACILITIES PLANNER, T7, CMP, TSH #### [facility] [address] [place] [address] Dr. Get Whitten TROPONIN, HIGH SENSITIVITYon 11-27-2022 HSTROP 4.1 pg/mL Normal 4.0-76.1 [facility] Comment on above: Result Comment: CUT- OFF POINTS HAVE BEEN ESTABLISHED BASED ON THE FOURTH UNIVERSAL DEFINITIONS OF MYOCARDIAL INFARCTION. THE UPPER REFERENCE LIMIT (URL) OF TROPONIN, DEFINED THE 99TH PERCENTILE OF cTnI DISTRIBUTION IN A REFERENCE POPULATION, HAS BEEN CONFIRMED THE DECISION THRESHOLD FOR IA DIAGNOSIS. Performed By: #### B FACILITIES PLANNER, T7, CMP, TSH #### [facility] [address] [place] [address] Dr. Get Whitten TSHon 11-27-2022 TSH 134.470 uIU/mL Critically high 0.358-3.740 [facility] Comment on above: Performed By: #### B FACILITIES PLANNER, T7, CMP, TSH #### [facility] [address] [place] [address] Dr. Get Whitten XR CHEST 1 Von [...] by: SHEN SOSA Date: 2022-11-27 11:19 Normal [facility] XR CSPINE MIN 4 VIEWSon 10-14 XR [...] by: SHEN SOSA Date: 2022-10-24 10:22 Normal [facility] XR LSPINE MIN 4 VIEWSon 10-14 XR [...] SHEN SOSA Date: 2022-10-24 10:19 Normal [facility] H PYLORI ANTIBODY IGGon H. PYLORI IGG ABS 0.07 Index Value Normal 0.00-0.79 [facility] Comment on above: Result Comment: Nega tive <0.80 Equivocal 0.80 - 0.89 Positive >0.89 Performed By: #### B FACILITIES PLANNER, T7, CMP, TSH #### [facility] [address] [place] [address] Dr. Get Whitten BNPon 04-15-2022 Natriuretic peptide B (Bld) [Mass/Vol] 138.0 pg/mL Normal <=900.0 [facility] Comment on above: Performed By: #### B FACILITIES PLANNER, T7, CMP, TSH #### [facility] [address] [place] [address] Dr. Get Whitten CBC AUTO DIFFon 04-15-2022 BASO # 0.0 103/ul Normal 0.0-0.1 [facility] Comment on above: Performed By: #### C MP, HSTROPN, BNP #### [facility] [address] [place] [address] Dr. Get Whitten Basophils/100 WBC (Bld) 0.4 % Normal 0.2-2.0 [facility] Comment on above: Performed By: #### C MP, HSTROPN, BNP #### [facility] [address] [place] [address] Dr. Get Whitten EO # 0.0 103/ul Normal 0.0-0.7 [facility] Comment on above: Performed By: #### C MP, HSTROPN, BNP #### [facility] [address] [place] [address] Dr. Get Whitten Eosinophils/100 WBC (Bld) 0.3 % Critically low 0.9-7.0 [facility] Comment on above: Performed By: #### C MP, HSTROPN, BNP #### [facility] [address] [place] [address] Dr. Get Whitten Erythrocyte distribution width (RBC) [Ratio] 13.2 % Normal 11.0-15.0 [facility] Comment on above: Performed By: #### C MP, HSTROPN, BNP #### [facility] [address] [place] [address] Dr. Get Whitten Hematocrit (Bld) [Volume fraction] 37.9 % Critically low 42.0-54.0 [facility] [facility] [place] Comment on above: Performed By: #### C MP, HSTROPN, BNP #### [facility] [address] [place] [address] Dr. Get Whitten Hemoglobin (Bld) [Mass/Vol] 13.1 g/dL Critically low 14.0-18.0 [facility] Comment on above: Performed By: #### C MP, HSTROPN, BNP #### [facility] [address] [place] [address] Dr. Get Whitten IG # 0.24 10e3/ul Critically high 0.00-0.03 [facility] Comment on above: Performed By: #### C MP, HSTROPN, BNP #### [facility] [address] [place] [address] Dr. Get Whitten IG % 3.1 % Critically high 0.0-0.5 [facility] Comment on above: Performed By: #### C MP, HSTROPN, BNP #### [facility] [address] [place] [address] Dr. Get Whitten LYMPH # 3.1 103/ul Normal 1.2-3.8 [facility] Comment on above: Performed By: #### C MP, HSTROPN, BNP #### [facility] [address] [place] [address] Dr. Get Whitten Lymphocytes/100 WBC (Bld) 40.3 % Normal 20.5-60.0 [facility] Comment on above: Performed By: #### C MP, HSTROPN, BNP #### [facility] [address] [place] [address] Dr. Get Whitten MANUAL DIFF REQ NO Normal [facility] Comment on above: Performed By: #### C MP, HSTROPN, BNP #### [facility] [address] [place] [address] Dr. Get Whitten MCH (RBC) [Entitic mass] 36.1 pg Critically high 25.9-34.0 The [facility] Comment on above: Performed By: #### C MP, HSTROPN, BNP #### [facility] [address] [address] [address] Get Whitten MCHC (RBC) [Mass/Vol] 34.6 g/dL Normal 29.9-35.2 The [facility] Comment on above: Performed By: #### C MP, HSTROPN, BNP #### [facility] [address] [place] [address] Dr. Get Whitten MCV (RBC) [Entitic vol] 104.4 fL Critically high 80.0-94.0 The [facility] Comment on above: Performed By: #### C MP, HSTROPN, BNP #### [facility] [address] [place] [address] Dr. Get Whitten MONO # 0.7 103/ul Normal 0.3-0.8 The [facility] Comment on above: Performed By: #### C MP, HSTROPN, BNP #### [facility] [address] [place] [address] Dr. Get Whitten Monocytes/100 WBC (Bld) 9.4 % Normal 1.7-12.0 The [facility] Comment on above: Performed By: #### C MP, HSTROPN, BNP #### [facility] [address] [place] [address] Dr. Get Whitten NEUT # 3.6 103/ul Normal 1.4-6.5 The [facility] Comment on above: Performed By: #### C MP, HSTROPN, BNP #### [facility] [address] [place] [address] Dr. Get Whitten Neutrophils/100 WBC (Bld) 46.5 % Normal 43.0-75.0 The [facility] Comment on above: Performed By: #### C MP, HSTROPN, BNP #### [facility] [address] [address] [address] Get Whitten Platelet mean volume (Bld) [Entitic vol] 8.5 fL Critically low 9.5-13.5 [facility] Comment on above: Performed By: #### C MP, HSTROPN, BNP #### [facility] [address] [place] [address] Dr. Get Whitten PLT 128 103/ul Critically low 150-450 [facility] Comment on above: Performed By: #### C MP, HSTROPN, BNP #### [facility] [address] [place] [address] Dr. Get Whitten RBC 3.63 106/ul Critically low 4.70-6.10 The [facility] Comment on above: Performed By: #### C MP, HSTROPN, BNP #### [facility] [address] [place] [address] Dr. Get Whitten WBC 7.7 103/ul Normal 4.0-11.0 The [facility] Comment on above: Performed By: #### C MP, HSTROPN, BNP #### [facility] [address] [place] [address] Dr. Get Whitten FREE THYROXINE INDEX T7on FTI 0.22 Critically low 1.30-4.50 [facility] Comment on above: Performed By: #### B FACILITIES PLANNER, T7, CMP, TSH #### [facility] [address] [place] [address] Dr. Get Whitten T3U 37.0 % Normal 33.0-40.0 The [facility] Comment on above: Performed By: #### B FACILITIES PLANNER, T7, CMP, TSH #### [facility] [address] [place] [address] Dr. Get Whitten T4 [Mass/Vol] 0.60 ug/dL Critically low 4.50-12.10 [facility] Comment on above: Performed By: #### B FACILITIES PLANNER, T7, CMP, TSH #### [facility] [address] [address] [address] Get Whitten IRONon 04-15-2022 Iron [Mass/Vol] 74.0 ug/dL Normal 65.0-175.0 [facility] Comment on above: Performed By: #### C VDTBH #### [facility] [address] [address] [address] Get Whitten PROF 14(COMP METB)on 022 Albumin [Mass/Vol] 3.6 g/dL Normal 3.4-5.0 [facility] Comment on above: Performed By: #### B FACILITIES PLANNER, T7, CMP, TSH #### [facility] [address] [place] [address] Dr. Get Whitten Albumin/Globulin [Mass ratio] 1.3 {ratio} Normal [facility] Comment on above: Performed By: #### B FACILITIES PLANNER, T7, CMP, TSH #### [facility] [address] [address] [address] Get Whitten ALP [Catalytic activity/Vol] 41 U/L Critically low 46-116 [facility] Comment on above: Performed By: #### B FACILITIES PLANNER, T7, CMP, TSH #### [facility] [address] [address] [address] Get Whitten ALT [Catalytic activity/Vol] 111 U/L Critically high 16-63 [facility] Comment on above: Performed By: #### B FACILITIES PLANNER, T7, CMP, TSH #### [facility] [address] [address] [address] Get Whitten Anion gap [Moles/Vol] 10.3 mmol/L Normal [facility] Comment on above: Performed By: #### B FACILITIES PLANNER, T7, CMP, TSH #### [facility] [address] [place] [address] Dr. Get Whitten AST [Catalytic activity/Vol] 30 U/L Normal 15-37 [facility] Comment on above: Performed By: #### B FACILITIES PLANNER, T7, CMP, TSH #### [facility] [address] [place] [address] Dr. Get Whitten Bilirubin [Mass/Vol] 0.3 mg/dL Normal 0.2-1.0 [facility] Comment on above: Performed By: #### B FACILITIES PLANNER, T7, CMP, TSH #### [facility] [address] [address] [address] Get Whitten Calcium [Mass/Vol] 8.1 mg/dL Critically low 8.5-10.1 Th e [facility] Comment on above: Performed By: #### B FACILITIES PLANNER, T7, CMP, TSH #### [facility] [address] [place] [address] Dr. Get Whitten Chloride [Moles/Vol] 98 mmol/L Normal 98-107 [facility] Comment on above: Performed By: #### B FACILITIES PLANNER, T7, CMP, TSH #### [facility] [address] [place] [address] Dr. Get Whitten CO2 [Moles/Vol] 24.7 mmol/L Normal 21.0-32.0 [facility] Comment on above: Performed By: #### B FACILITIES PLANNER, T7, CMP, TSH #### [facility] [address] [place] [address] Dr. Get Whitten Creatinine [Mass/Vol] 1.24 mg/dL Normal 0.70-1.30 [facility] Comment on above: Performed By: #### B FACILITIES PLANNER, T7, CMP, TSH #### [facility] [address] [place] [address] Dr. Get Whitten EGFR-AF LEBANESE >60 Normal >=60 [facility] Comment on above: Performed By: #### B FACILITIES PLANNER, T7, CMP, TSH #### [facility] [address] [place] [address] Dr. Get Whitten EGFR-NON AF LEBANESE =60 Normal >=60 [facility] Comment on above: Performed By: #### B FACILITIES PLANNER, T7, CMP, TSH #### [facility] [address] [place] [address] Dr. Get Whitten Globulin (S) [Mass/Vol] 2.7 g/dL Normal The [facility] Comment on above: Performed By: #### B FACILITIES PLANNER, T7, CMP, TSH #### [facility] [address] [place] [address] Dr. Get Whitten Glucose [Mass/Vol] 107 mg/dL Critically high 74-106 T [facility] Comment on above: Performed By: #### B FACILITIES PLANNER, T7, CMP, TSH #### [facility] [address] [place] [address] Dr. Get Whitten Potassium [Moles/Vol] 4.0 mmol/L Normal 3.5-5.1 [facility] Comment on above: Performed By: #### B FACILITIES PLANNER, T7, CMP, TSH #### [facility] [address] [place] [address] Dr. Get Whitten Protein [Mass/Vol] 6.3 g/dL Critically low 6.4-8.2 [facility] Comment on above: Performed By: #### B FACILITIES PLANNER, T7, CMP, TSH #### [facility] [address] [place] [address] Dr. Get Whitten Sodium [Moles/Vol] 129 mmol/L Critically low 136-145 [facility] Comment on above: Performed By: #### B FACILITIES PLANNER, T7, CMP, TSH #### [facility] [address] [place] [address] Dr. Get Whitten Urea nitrogen [Mass/Vol] 12.0 mg/dL Normal 7.0-18.0 [facility] Comment on above: Performed By: #### B FACILITIES PLANNER, T7, CMP, TSH #### [facility] [address] [place] [address] Dr. Get Whitten Urea nitrogen/Creatinine [Mass ratio] 9.7 mg/mg Normal [facility] Comment on above: Performed By: #### B FACILITIES PLANNER, T7, CMP, TSH #### [facility] [address] [place] [address] Dr. Get Whitten TSHon 04-15-2022 TSH 76.327 uIU/mL Critically high 0.358-3.740 [facility] Comment on above: Performed By: #### B FACILITIES PLANNER, T7, CMP, TSH #### [facility] [address] [place] [address] Dr. Get Whitten BNPon 03-31-2022 Natriuretic peptide B (Bld) [Mass/Vol] 349.0 pg/mL Normal <=900.0 [facility] Comment on above: Performed By: #### B FACILITIES PLANNER, T7, CMP, TSH #### [facility] [address] [place] [address] Dr. Get Whitten CBC W MANUAL DIFFon 03-31-20 22 ATYPICAL LYMPH # 0.26 103/ul Normal [facility] Comment on above: Performed By: #### C MP #### [facility] [address] [place] [address] Dr. Get Whitten ATYPICAL LYMPH % 2 % Normal [facility] Comment on above: Performed By: #### C MP #### [facility] [address] [place] [address] Dr. Get Whitten BAND # 0.0 103/ul Normal 0.0-0.3 The [facility] Comment on above: Performed By: #### C MP #### [facility] [address] [place] [address] Dr. Get Whitten BAND % 0 % Normal 0-5 [facility] Comment on above: Performed By: #### C MP #### [facility] [address] [place] [address] Dr. Get Whitten BASOM # 0.00 103/ul Normal 0.00-0.10 [facility] Comment on above: Performed By: #### C MP #### [facility] [address] [place] [address] Dr. Get Whitten BASOM % 0.0 % Critically low 0.2-2.0 [facility] Comment on above: Performed By: #### C MP #### [facility] [address] [place] [address] Dr. Get Whitten BLAST # Normal [facility] Comment on above: Performed By: #### C MP #### [facility] [address] [place] [address] Dr. Get Whitten BLAST % Normal [facility] Comment on above: Performed By: #### C MP #### [facility] [address] [address] [address] Get Whitten CORRECTED WBC Normal 4.0-11.0 [facility] Comment on above: Performed By: #### C MP #### [facility] [address] [address] [address] Get Whitten EOS # 0.00 103/ul Normal 0.00-0.70 [facility] Comment on above: Performed By: #### C MP #### [facility] [address] [address] [address] Get Whitten EOS% 0.0 % Critically low 0.9-7.0 [facility] Comment on above: Performed By: #### C MP #### [facility] [address] [place] [address] Dr. Get Whitten HCT 38.3 % Critically low 42.0-54.0 [facility] Comment on above: Performed By: #### C MP #### [facility] [address] [place] [address] Dr. Get Whitten HGB 13.7 g/dl Critically low 14.0-18.0 [facility] Comment on above: Performed By: #### C MP #### [facility] [address] [place] [address] Dr. Get Whitten LYMPHM # 1.43 103/ul Normal 1.20-3.80 [facility] Comment on above: Performed By: #### C MP #### [facility] [address] [address] [address] Get Whitten LYMPHM% 11.0 % Critically low 20.5-60.0 [facility] Comment on above: Performed By: #### C MP #### [facility] [address] [place] [address] Dr. Get Whitten MCH 36.3 pg Critically high 25.9-34.0 The [facility] Comment on above: Performed By: #### C MP #### [facility] [address] [place] [address] Dr. Get Whitten MCHC 35.8 g/dl Critically high 29.9-35.2 [facility] Comment on above: Performed By: #### C MP #### [facility] [address] [place] [address] Dr. Get Whitten MCV 101.6 fL Critically high 80.0-94.0 [facility] Comment on above: Performed By: #### C MP #### [facility] [address] [place] [address] Dr. Get Whitten METAMYELOCYTE # Normal [facility] Comment on above: Performed By: #### C MP #### [facility] [address] [place] [address] Dr. Get Whitten METAMYELOCYTE % Normal [facility] Comment on above: Performed By: #### C MP #### [facility] [address] [place] [address] Dr. Get Whitten MONOM# 0.78 103/ul Normal 0.30-0.80 [facility] Comment on above: Performed By: #### C MP #### [facility] [address] [place] [address] Dr. Get Whitten MONOM% 6.0 % Normal 1.7-12.0 [facility] Comment on above: Performed By: #### C MP #### [facility] [address] [place] [address] Dr. Get Whitten MPV 8.7 fL Critically low 9.5-13.5 [facility] Comment on above: Performed By: #### C MP #### [facility] [address] [place] [address] Dr. Gte Whitten MYELOCYTE # Normal [facility] Comment on above: Performed By: #### C MP #### [facility] [address] [place] [address] Dr. Get Whitten MYELOCYTE % Normal [facility] Comment on above: Performed By: #### C MP #### [facility] [address] [place] [address] Dr. Get Whitten NRBC Normal [facility] Comment on above: Performed By: #### C MP #### [facility] [address] [address] [address] Get Whitten PLT 225 103/ul Normal 150-450 [facility] Comment on above: Performed By: #### C MP #### [facility] [address] [address] [address] Get Whitten RBC 3.77 106/ul Critically low 4.70-6.10 [facility] Comment on above: Performed By: #### C MP #### [facility] [address] [address] [address] Get Whitten RDW 12.7 % Normal 11.0-15.0 [facility] Comment on above: Performed By: #### C MP #### [facility] [address] [address] [address] Get Whitten SEG # 10.53 103/ul Critically high 1.40-6.50 [facility] Comment on above: Performed By: #### C MP #### [facility] [address] [address] [address] Get Whitten SEG % 81.0 % Critically high 43.0-75.0 [facility] Comment on above: Performed By: #### C MP #### [facility] [address] [address] [address] Get Whitten WBC 13.0 103/ul Critically high 4.0-11.0 [facility] Comment on above: Performed By: #### C MP #### [facility] [address] [address] [address] Get Whitten CRPon 03-31-2022 CRP [Mass/Vol] mg/L Normal <=1.0 [facility] Comment on above: Performed By: #### B FACILITIES PLANNER, T7, CMP, TSH #### [facility] [address] [address] [address] Get Whitten PROF 14(COMP METB)on 022 Albumin [Mass/Vol] 3.3 g/dL Critically low 3.4-5.0 [facility] Comment on above: Performed By: #### B FACILITIES PLANNER, T7, CMP, TSH #### [facility] [address] [address] [address] Get Whitten Albumin/Globulin [Mass ratio] 1.2 {ratio} Normal [facility] Comment on above: Performed By: #### B FACILITIES PLANNER, T7, CMP, TSH #### [facility] [address] [address] [address] Get Whitten ALP [Catalytic activity/Vol] 48 U/L Normal 46-116 [facility] Comment on above: Performed By: #### B FACILITIES PLANNER, T7, CMP, TSH #### [facility] [address] [address] [address] Get Whitten ALT [Catalytic activity/Vol] 130 U/L Critically high 16-63 [facility] Comment on above: Performed By: #### B FACILITIES PLANNER, T7, CMP, TSH #### [facility] [address] [place] [address] Dr. Get Whitten Anion gap [Moles/Vol] 11.9 mmol/L Normal [facility] Comment on above: Performed By: #### B FACILITIES PLANNER, T7, CMP, TSH #### [facility] [address] [address] [address] Get Whitten AST [Catalytic activity/Vol] 50 U/L Critically high 15-37 [facility] Comment on above: Performed By: #### B FACILITIES PLANNER, T7, CMP, TSH #### [facility] [address] [address] [address] Get Whitten Bilirubin [Mass/Vol] 0.5 mg/dL Normal 0.2-1.0 [facility] Comment on above: Performed By: #### B FACILITIES PLANNER, T7, CMP, TSH #### [facility] [address] [address] [address] Get Whitten Calcium [Mass/Vol] 7.9 mg/dL Critically low 8.5-10.1 Th e [facility] Comment on above: Performed By: #### B FACILITIES PLANNER, T7, CMP, TSH #### [facility] [address] [address] [address] Get Whitten Chloride [Moles/Vol] 99 mmol/L Normal 98-107 [facility] Comment on above: Performed By: #### B FACILITIES PLANNER, T7, CMP, TSH #### [facility] [address] [place] [address] Dr. Get Whitten CO2 [Moles/Vol] 18.4 mmol/L Critically low 21.0-32.0 [facility] Comment on above: Performed By: #### B FACILITIES PLANNER, T7, CMP, TSH #### [facility] [address] [place] [address] Dr. Get Whitten Creatinine [Mass/Vol] 0.96 mg/dL Normal 0.70-1.30 [facility] Comment on above: Performed By: #### B FACILITIES PLANNER, T7, CMP, TSH #### [facility] [address] [place] [address] Dr. Get Whitten EGFR-AF LEBANESE >60 Normal >=60 [facility] Comment on above: Performed By: #### B FACILITIES PLANNER, T7, CMP, TSH #### [facility] [address] [place] [address] Dr. Get Whitten EGFR-NON AF LEBANESE >60 Normal >=60 [facility] Comment on above: Performed By: #### B FACILITIES PLANNER, T7, CMP, TSH #### [facility] [address] [place] [address] Dr. Get Whitten Globulin (S) [Mass/Vol] 2.8 g/dL Normal [facility] Comment on above: Performed By: #### B FACILITIES PLANNER, T7, CMP, TSH #### [facility] [address] [place] [address] Dr. Get Whitten Glucose [Mass/Vol] 166 mg/dL Critically high 74-106 [facility] Comment on above: Performed By: #### B FACILITIES PLANNER, T7, CMP, TSH #### [facility] [address] [place] [address] Dr. Get Whitten Potassium [Moles/Vol] 3.3 mmol/L Critically low 3.5-5.1 [facility] Comment on above: Performed By: #### B FACILITIES PLANNER, T7, CMP, TSH #### [facility] [address] [place] [address] Dr. Get Whitten Protein [Mass/Vol] 6.1 g/dL Critically low 6.4-8.2 [facility] Comment on above: Performed By: #### B FACILITIES PLANNER, T7, CMP, TSH #### [facility] [facility] [address] [place] [address] Dr. Get Whitten Sodium [Moles/Vol] 126 mmol/L Critically low 136-145 [facility] Comment on above: Performed By: #### B FACILITIES PLANNER, T7, CMP, TSH #### [facility] [address] [place] [address] Dr. Get Whitten Urea nitrogen [Mass/Vol] 8.0 mg/dL Normal 7.0-18.0 [facility] Comment on above: Performed By: #### B FACILITIES PLANNER, T7, CMP, TSH #### [facility] [address] [place] [address] Dr. Get Whitten Urea nitrogen/Creatinine [Mass ratio] 8.3 mg/mg Normal [facility] Comment on above: Performed By: #### B FACILITIES PLANNER, T7, CMP, TSH #### [facility] [address] [place] [address] Dr. Get Whitten BNPon 03-30-2022 Natriuretic peptide B (Bld) [Mass/Vol] 274.0 pg/mL Normal <=900.0 [facility] Comment on above: Performed By: #### C MP, HSTROPN, BNP #### [facility] [address] [place] [address] Dr. Get Whitten CARDIAC ANA 3-6on 2 CK [Catalytic activity/Vol] 48 U/L Normal 39-308 [facility] Comment on above: Performed By: #### B FACILITIES PLANNER, T7, CMP, TSH #### [facility] [address] [place] [address] Dr. Get Whitten CK.MB [Mass/Vol] 1.62 ng/mL Normal <=3.60 [facility] Comment on above: Performed By: #### B FACILITIES PLANNER, T7, CMP, TSH #### [facility] [address] [place] [address] Dr. Get Whitten HSTROP 15.7 pg/mL Normal 4.0-76.1 [facility] Comment on above: Result Comment: CUT- OFF POINTS HAVE BEEN ESTABLISHED BASED ON THE FOURTH UNIVERSAL DEFINITIONS OF MYOCARDIAL INFARCTION. THE UPPER REFERENCE LIMIT (URL) OF TROPONIN, DEFINED THE 99TH PERCENTILE OF cTnI DISTRIBUTION IN A REFERENCE POPULATION, HAS BEEN CONFIRMED THE DECISION THRESHOLD FOR IA DIAGNOSIS. Performed By: #### B FACILITIES PLANNER, T7, CMP, TSH #### [facility] [address] [place] [address] Dr. Get Whitten CBC AUTO DIFFon 03-30-2022 BASO # 0.1 103/ul Normal 0.0-0.1 [facility] Comment on above: Performed By: #### C MP #### [facility] [address] [place] [address] Dr. Get Whitten Basophils/100 WBC (Bld) 0.8 % Normal 0.2-2.0 [facility] Comment on above: Performed By: #### C MP #### [facility] [address] [place] [address] Dr. Get Whitten EO # 0.6 103/ul Normal 0.0-0.7 [facility] Comment on above: Performed By: #### C MP #### [facility] [address] [place] [address] Dr. Get Whitten Eosinophils/100 WBC (Bld) 5.2 % Normal 0.9-7.0 [facility] Comment on above: Performed By: #### C MP #### [facility] [address] [place] [address] Dr. Get Whitten Erythrocyte distribution width (RBC) [Ratio] 12.7 % Normal 11.0-15.0 [facility] Comment on above: Performed By: #### C MP #### [facility] [address] [place] [address] Dr. Get Whitten Hematocrit (Bld) [Volume fraction] 41.7 % Critically low 42.0-54.0 [facility] Comment on above: Performed By: #### C MP #### [facility] [address] [address] [address] Get Whitten Hemoglobin (Bld) [Mass/Vol] 14.9 g/dL Normal 14.0-18.0 [facility] Comment on above: Performed By: #### C MP #### [facility] [address] [address] [address] Get Whitten IG # 0.48 10e3/ul Critically high 0.00-0.03 [facility] Comment on above: Performed By: #### C MP #### [facility] [address] [address] [address] Get Whitten IG % 4.1 % Critically high 0.0-0.5 [facility] Comment on above: Performed By: #### C MP #### [facility] [address] [address] [address] Get Whitten LYMPH # 1.4 103/ul Normal 1.2-3.8 [facility] Comment on above: Performed By: #### C MP #### [facility] [address] [address] [address] Get Whitten Lymphocytes/100 WBC (Bld) 11.9 % Critically low 20.5-60.0 [facility] Comment on above: Performed By: #### C MP #### [facility] [address] [address] [address] Get Whitten MANUAL DIFF REQ NO Normal [facility] Comment on above: Performed By: #### C MP #### [facility] [address] [address] [address] Get Whitten MCH (RBC) [Entitic mass] 36.8 pg Critically high 25.9-34.0 [facility] Comment on above: Performed By: #### C MP #### [facility] [address] [address] [address] Get Whitten MCHC (RBC) [Mass/Vol] 35.7 g/dL Critically high 29.9-35.2 [facility] Comment on above: Performed By: #### C MP #### [facility] [address] [address] [address] Get Whitten MCV (RBC) [Entitic vol] 103.0 fL Critically high 80.0-94.0 [facility] Comment on above: Performed By: #### C MP #### [facility] [address] [address] [address] Get Whitten MONO # 0.5 103/ul Normal 0.3-0.8 [facility] Comment on above: Performed By: #### C MP #### [facility] [address] [address] [address] Get Whitten Monocytes/100 WBC (Bld) 4.3 % Normal 1.7-12.0 [facility] Comment on above: Performed By: #### C MP #### [facility] [address] [place] [address] Dr. Get Whitten NEUT # 8.6 103/ul Critically high 1.4-6.5 [facility] Comment on above: Performed By: #### C MP #### [facility] [address] [place] [address] Dr. Get Whitten Neutrophils/100 WBC (Bld) 73.7 % Normal 43.0-75.0 [facility] Comment on above: Performed By: #### C MP #### [facility] [address] [place] [address] Dr. Get Whitten Platelet mean volume (Bld) [Entitic vol] 9.0 fL Critically low 9.5-13.5 [facility] Comment on above: Performed By: #### C MP #### [facility] [address] [place] [address] Dr. Get Whitten PLT 244 103/ul Normal 150-450 [facility] Comment on above: Performed By: #### C MP #### [facility] [address] [place] [address] Dr. Get Whitten RBC 4.05 106/ul Critically low 4.70-6.10 [facility] Comment on above: Performed By: #### C MP #### [facility] [address] [place] [address] Dr. Get Whitten WBC 11.7 103/ul Critically high 4.0-11.0 [facility] Comment on above: Performed By: #### C MP #### [facility] [address] [place] [address] Dr. Get Whitten CRPon 03-30-2022 CRP 0.3 mg/dL Normal <=1.0 [facility] Comment on above: Performed By: #### C MP, HSTROPN, BNP #### [facility] [address] [address] [address] Get Whitten CULTURE SPUTUMon 03-30-2022 CULTURE [...] F Oxacillin >=4 R F Normal [facility] Comment on above: Performed By: #### B FACILITIES PLANNER, T7, CMP, TSH #### [facility] [address] [place] [address] Dr. Get Whitten ECHO LIMITED STUDYon 022 ECHO LIMITED STUDY Patient: REHAN POOLE Exam Date: 03/30/2022 : 1965 Gender:M Ordering : DR PEE GUADALUPE . Admission #: [id number] Family : Order #: [id number] CLICK HERE TO VIEW EXAM ECHOCARDIOGRAM REPORT [...] Dominguez M.D. on 03/31/2022 at 19:42 Normal [facility] PROF 14(COMP METB)on 022 Albumin [Mass/Vol] 3.5 g/dL Normal 3.4-5.0 [facility] Comment on above: Performed By: #### C MP, HSTROPN, BNP #### [facility] [address] [address] [address] Get Whitten Albumin/Globulin [Mass ratio] 1.2 {ratio} Normal [facility] Comment on above: Performed By: #### C MP, HSTROPN, BNP #### [facility] [address] [address] [address] Get Whitten ALP [Catalytic activity/Vol] 58 U/L Normal 46-116 [facility] Comment on above: Performed By: #### C MP, HSTROPN, BNP #### [facility] [address] [address] [address] Get Whitten ALT [Catalytic activity/Vol] 108 U/L Critically high 16-63 [facility] Comment on above: Performed By: #### C MP, HSTROPN, BNP #### [facility] [address] [address] [address] Get Whitten Anion gap [Moles/Vol] 12.6 mmol/L Normal [facility] Comment on above: Performed By: #### C MP, HSTROPN, BNP #### [facility] [address] [place] [address] Dr. Get Whitten AST [Catalytic activity/Vol] 33 U/L Normal 15-37 [facility] Comment on above: Performed By: #### C MP, HSTROPN, BNP #### [facility] [address] [address] [address] Get Whitten Bilirubin [Mass/Vol] 0.6 mg/dL Normal 0.2-1.0 [facility] Comment on above: Performed By: #### C MP, HSTROPN, BNP #### [facility] [address] [address] [address] Get Whitten Calcium [Mass/Vol] 8.0 mg/dL Critically low 8.5-10.1 [facility] Comment on above: Performed By: #### C MP, HSTROPN, BNP #### [facility] [address] [address] [address] Get Whitten Chloride [Moles/Vol] 99 mmol/L Normal 98-107 [facility] Comment on above: Performed By: #### C MP, HSTROPN, BNP #### [facility] [address] [address] [address] Get Whitten CO2 [Moles/Vol] 22.0 mmol/L Normal 21.0-32.0 [facility] Comment on above: Performed By: #### C MP, HSTROPN, BNP #### [facility] [address] [place] [address] Dr. Get Whitten Creatinine [Mass/Vol] 1.12 mg/dL Normal 0.70-1.30 [facility] Comment on above: Performed By: #### C MP, HSTROPN, BNP #### [facility] [address] [place] [address] Dr. Get Whitten EGFR-AF LEBANESE >60 Normal >=60 [facility] Comment on above: Performed By: #### C MP, HSTROPN, BNP #### [facility] [address] [place] [address] Dr. Get Whitten EGFR-NON AF LEBANESE >60 Normal >=60 [facility] Comment on above: Performed By: #### C MP, HSTROPN, BNP #### [facility] [address] [place] [address] Dr. Get Whitten Globulin (S) [Mass/Vol] 3.0 g/dL Normal [facility] Comment on above: Performed By: #### C MP, HSTROPN, BNP #### [facility] [address] [place] [address] Dr. Get Whitten Glucose [Mass/Vol] 135 mg/dL Critically high 74-106 T [facility] Comment on above: Performed By: #### C MP, HSTROPN, BNP #### [facility] [address] [address] [address] Get Whitten Potassium [Moles/Vol] 3.6 mmol/L Normal 3.5-5.1 [facility] Comment on above: Performed By: #### C MP, HSTROPN, BNP #### [facility] [address] [place] [address] Dr. Get Whitten Protein [Mass/Vol] 6.5 g/dL Normal 6.4-8.2 [facility] Comment on above: Performed By: #### C MP, HSTROPN, BNP #### [facility] [address] [place] [address] Dr. Get Whitten Sodium [Moles/Vol] 130 mmol/L Critically low 136-145 [facility] Comment on above: Performed By: #### C MP, HSTROPN, BNP #### [facility] [address] [place] [address] Dr. Get Whitten Urea nitrogen [Mass/Vol] 7.0 mg/dL Normal 7.0-18.0 [facility] Comment on above: Performed By: #### C MP, HSTROPN, BNP #### [facility] [address] [place] [address] Dr. Get Whitten Urea nitrogen/Creatinine [Mass ratio] 6.2 mg/mg Normal [facility] Comment on above: Performed By: #### C MP, HSTROPN, BNP #### [facility] [address] [place] [address] Dr. Get Whitten CARDIAC ANA 3-6on 2 CK [Catalytic activity/Vol] 51 U/L Normal 39-308 [facility] Comment on above: Performed By: #### C VDTBH #### [facility] [address] [place] [address] Dr. Get Whitten CK.MB [Mass/Vol] 1.89 ng/mL Normal <=3.60 [facility] Comment on above: Performed By: #### C VDTBH #### [facility] [address] [place] [address] Dr. Get Whitten HSTROP 14.4 pg/mL Normal 4.0-76.1 [facility] Comment on above: Result Comment: CUT- OFF POINTS HAVE BEEN ESTABLISHED BASED ON THE FOURTH UNIVERSAL DEFINITIONS OF MYOCARDIAL INFARCTION. THE UPPER REFERENCE LIMIT (URL) OF TROPONIN, DEFINED THE 99TH PERCENTILE OF cTnI DISTRIBUTION IN A REFERENCE POPULATION, HAS BEEN CONFIRMED THE DECISION THRESHOLD FOR IA DIAGNOSIS. Performed By: #### C VDTBH #### [facility] [address] [place] [address] Dr. Get Whitten CARDIAC ANA ADMITon 022 CK [Catalytic activity/Vol] 128 U/L Normal 39-308 [facility] Comment on above: Performed By: #### C MP, HSTROPN, BNP #### [facility] [address] [place] [address] Dr. Get Whitten CK.MB [Mass/Vol] 2.22 ng/mL Normal <=3.60 [facility] Comment on above: Performed By: #### C MP, HSTROPN, BNP #### [facility] [address] [place] [address] Dr. Get Whitten HSTROP 11.2 pg/mL Normal 4.0-76.1 [facility] Comment on above: Result Comment: CUT- OFF POINTS HAVE BEEN ESTABLISHED BASED ON THE FOURTH UNIVERSAL DEFINITIONS OF MYOCARDIAL INFARCTION. THE UPPER REFERENCE LIMIT (URL) OF TROPONIN, DEFINED THE 99TH PERCENTILE OF cTnI DISTRIBUTION IN A REFERENCE POPULATION, HAS BEEN CONFIRMED THE DECISION THRESHOLD FOR IA DIAGNOSIS. Performed By: #### C MP, HSTROPN, BNP #### [facility] [address] [place] [address] Dr. Get Whitten RAFA 40 ng/mL Normal 16-96 [facility] Comment on above: Performed By: #### C MP, HSTROPN, BNP #### [facility] [address] [place] [address] Dr. Get Whitten CBC AUTO DIFFon 03-29-2022 BASO # 0.1 103/ul Normal 0.0-0.1 [facility] Comment on above: Performed By: #### O SMOU #### [facility] [address] [place] [address] Dr. Get Whitten Basophils/100 WBC (Bld) 0.4 % Normal 0.2-2.0 [facility] Comment on above: Performed By: #### O SMOU #### [facility] [address] [place] [address] Dr. Get Whitten EO # 0.0 103/ul Normal 0.0-0.7 [facility] Comment on above: Performed By: #### O SMOU #### [facility] [address] [place] [address] Dr. Get Whitten Eosinophils/100 WBC (Bld) 0.1 % Critically low 0.9-7.0 [facility] Comment on above: Performed By: #### O SMOU #### [facility] [address] [place] [address] Dr. Get Whitten Erythrocyte distribution width (RBC) [Ratio] 12.8 % Normal 11.0-15.0 [facility] Comment on above: Performed By: #### O SMOU #### [facility] [address] [place] [address] Dr. Get Whitten Hematocrit (Bld) [Volume fraction] 42.1 % Normal 42.0-54.0 [facility] Comment on above: Performed By: #### O SMOU #### [facility] [address] [place] [address] Dr. Get Whitten Hemoglobin (Bld) [Mass/Vol] 15.3 g/dL Normal 14.0-18.0 [facility] Comment on above: Performed By: #### O SMOU #### [facility] [address] [place] [address] Dr. Get Whitten IG # 0.49 10e3/ul Critically high 0.00-0.03 [facility] Comment on above: Performed By: #### O SMOU #### [facility] [address] [place] [address] Dr. Get Whitten IG % 3.6 % Critically high 0.0-0.5 [facility] Comment on above: Performed By: #### O SMOU #### [facility] [address] [place] [address] Dr. Get Whitten LYMPH # 2.2 103/ul Normal 1.2-3.8 [facility] Comment on above: Performed By: #### O SMOU #### [facility] [address] [place] [address] Dr. Get Whitten Lymphocytes/100 WBC (Bld) 16.1 % Critically low 20.5-60.0 [facility] Comment on above: Performed By: #### O SMOU #### [facility] [address] [place] [address] Dr. Get Whitten MANUAL DIFF REQ NO Normal [facility] Comment on above: Performed By: #### O SMOU #### [facility] [address] [place] [address] Dr. Get Whitten MCH (RBC) [Entitic mass] 36.3 pg Critically high 25.9-34.0 [facility] Comment on above: Performed By: #### O SMOU #### [facility] [address] [place] [address] Dr. Get Whitten MCHC (RBC) [Mass/Vol] 36.3 g/dL Critically high 29.9-35.2 [facility] Comment on above: Performed By: #### O SMOU #### [facility] [address] [place] [address] Dr. Get Whitten MCV (RBC) [Entitic vol] 100.0 fL Critically high 80.0-94.0 [facility] Comment on above: Performed By: #### O SMOU #### [facility] [address] [place] [address] Dr. Get Whitten MONO # 1.1 103/ul Critically high 0.3-0.8 [facility] Comment on above: Performed By: #### O SMOU #### [facility] [address] [place] [address] Dr. Get Whitten Monocytes/100 WBC (Bld) 8.3 % Normal 1.7-12.0 [facility] Comment on above: Performed By: #### O SMOU #### [facility] [address] [place] [address] Dr. Get Whitten NEUT # 9.6 103/ul Critically high 1.4-6.5 [facility] Comment on above: Performed By: #### O SMOU #### [facility] [address] [place] [address] Dr. Get Whitten Neutrophils/100 WBC (Bld) 71.5 % Normal 43.0-75.0 [facility] Comment on above: Performed By: #### O SMOU #### [facility] [address] [address] [address] Get Whitten Platelet mean volume (Bld) [Entitic vol] 9.1 fL Critically low 9.5-13.5 [facility] Comment on above: Performed By: #### O SMOU #### [facility] [address] [place] [address] Dr. Get Whitten PLT 228 103/ul Normal 150-450 [facility] Comment on above: Performed By: #### O SMOU #### [facility] [address] [address] [address] Get Whitten RBC 4.21 106/ul Critically low 4.70-6.10 [facility] Comment on above: Performed By: #### O SMOU #### [facility] [address] [place] [address] Dr. Get Whitten WBC 13.4 103/ul Critically high 4.0-11.0 [facility] Comment on above: Performed By: #### O SMOU #### [facility] [address] [place] [address] Dr. Get Whitten Covid-19 PCR (CVDTB)on 03-16 SARS-CoV-2 (COVID-19) RNA ASHLEE+probe Ql (Unsp spec) Detected Critically abnormal NOT DETECTED [facility] Comment on above: Result Comment: This test is not yet approved or cleared by the [place] FDA. When there are no FDA-approved or cleared tests available, and other criteria are met, FDA can make tests available under an emergency access mechanism called an Emergency Use Authorization (EUA). The EUA for this test is supported by the Fire Prevention Research Engineer of Health and Human Service's declaration that [...] used). Performed By: #### C VDTBH #### [facility] [address] [place] [address] Dr. Get Whitten OSMOLALITYon 03-29-2022 Osmolality [Osmolality] 257 mosm/kg Critically low 275-295 [facility] Comment on above: Performed By: #### C VDTBH #### [facility] [address] [place] [address] Dr. Get Whitten OSMOLALITY URINEon 2 Osmolality, Urine 251 mOsmol/kg Normal [facility] Comment on above: Result Comment: 24 h r : 300 - 900 Random: 50 - 1400 After 12hr fluid restriction: >850 Performed By: #### O SMOU #### [facility] [address] [place] [address] Dr. Get Wihtten PROF CHEM 8 (BAS METB)on Anion gap [Moles/Vol] 17.1 mmol/L Normal [facility] Comment on above: Performed By: #### C MP, HSTROPN, BNP #### [facility] [address] [place] [address] Dr. Get Whitten Calcium [Mass/Vol] 8.4 mg/dL Critically low 8.5-10.1 [facility] Comment on above: Performed By: #### C MP, HSTROPN, BNP #### [facility] [address] [place] [address] Dr. Get Whitten Chloride [Moles/Vol] 98 mmol/L Normal 98-107 [facility] Comment on above: Performed By: #### C MP, HSTROPN, BNP #### [facility] [address] [place] [address] Dr. Get Whitten CO2 [Moles/Vol] 18.1 mmol/L Critically low 21.0-32.0 [facility] Comment on above: Performed By: #### C MP, HSTROPN, BNP #### [facility] [address] [place] [address] Dr. Get Whitten Creatinine [Mass/Vol] 0.98 mg/dL Normal 0.70-1.30 [facility] Comment on above: Performed By: #### C MP, HSTROPN, BNP #### [facility] [address] [place] [address] Dr. Get Whitten EGFR-AF LEBANESE >60 Normal >=60 [facility] Comment on above: Performed By: #### C MP, HSTROPN, BNP #### [facility] [address] [address] [address] Get Whitten EGFR-NON AF LEBANESE >60 Normal >=60 [facility] Comment on above: Performed By: #### C MP, HSTROPN, BNP #### [facility] [address] [address] [address] Get Whitten Glucose [Mass/Vol] 94 mg/dL Normal 74-106 [facility] Comment on above: Performed By: #### C FILOMENA HSTROPN, BNP #### [facility] [address] [address] [address] Get Whitten Potassium [Moles/Vol] 4.2 mmol/L Normal 3.5-5.1 [facility] Comment on above: Performed By: #### C FILOMENA HSTROPN, BNP #### [facility] [address] [address] [address] Get Whitten Sodium [Moles/Vol] 129 mmol/L Critically low 136-145 [facility] Comment on above: Performed By: #### C FILOMENA HSTROPN, BNP #### [facility] [address] [address] [address] Get Whitten Urea nitrogen [Mass/Vol] 8.0 mg/dL Normal 7.0-18.0 [facility] Comment on above: Performed By: #### C MP, HSTROPN, BNP #### [facility] [address] [address] [address] Get Whitten Urea nitrogen/Creatinine [Mass ratio] 8.2 mg/mg Normal [facility] Comment on above: Performed By: #### C FILOMENA HSTROPN, BNP #### [facility] [address] [address] [address] Get Whitten XR CHEST 1 Von [...] GARETH ROMERO Date: 2022-03-29 18:30 Normal The [facility] BNPon 03-28-2022 Natriuretic peptide B (Bld) [Mass/Vol] 401.0 pg/mL Normal <=900.0 [facility] Comment on above: Performed By: #### B FACILITIES PLANNER, T7, CMP, TSH #### [facility] [address] [place] [address] Dr. Get Whitten CBC W MANUAL DIFFon 03-28-20 22 ATYPICAL LYMPH # Normal [facility] Comment on above: Performed By: #### B FACILITIES PLANNER, T7, CMP, TSH #### [facility] [address] [place] [address] Dr. Get Whitten ATYPICAL LYMPH % Normal [facility] Comment on above: Performed By: #### B FACILITIES PLANNER, T7, CMP, TSH #### [facility] [address] [place] [address] Dr. Get Whitten BAND # 0.3 103/ul Normal 0.0-0.3 [facility] Comment on above: Performed By: #### B FACILITIES PLANNER, T7, CMP, TSH #### [facility] [address] [place] [address] Dr. Get Whitten BAND % 2 % Normal 0-5 The [facility] Comment on above: Performed By: #### B FACILITIES PLANNER, T7, CMP, TSH #### [facility] [address] [place] [address] Dr. Get Whitten BASOM # 0.00 103/ul Normal 0.00-0.10 [facility] Comment on above: Performed By: #### B FACILITIES PLANNER, T7, CMP, TSH #### [facility] [address] [place] [address] Dr. Get Whitten BASOM % 0.0 % Critically low 0.2-2.0 [facility] Comment on above: Performed By: #### B FACILITIES PLANNER, T7, CMP, TSH #### [facility] [address] [address] [address] Get Whitten BLAST # Normal [facility] Comment on above: Performed By: #### B FACILITIES PLANNER, T7, CMP, TSH #### [facility] [address] [address] [address] Get Whitten BLAST % Normal [facility] Comment on above: Performed By: #### B FACILITIES PLANNER, T7, CMP, TSH #### [facility] [address] [address] [address] Get Whitten CORRECTED WBC Normal 4.0-11.0 [facility] Comment on above: Performed By: #### B FACILITIES PLANNER, T7, CMP, TSH #### [facility] [address] [place] [address] Dr. Get Whitten EOS # 0.00 103/ul Normal 0.00-0.70 [facility] Comment on above: Performed By: #### B FACILITIES PLANNER, T7, CMP, TSH #### [facility] [address] [place] [address] Dr. Get Whitten EOS% 0.0 % Critically low 0.9-7.0 [facility] Comment on above: Performed By: #### B FACILITIES PLANNER, T7, CMP, TSH #### [facility] [address] [place] [address] Dr. Get Whitten HCT 36.3 % Critically low 42.0-54.0 [facility] Comment on above: Performed By: #### B FACILITIES PLANNER, T7, CMP, TSH #### [facility] [address] [place] [address] Dr. Get Whitten HGB 12.9 g/dl Critically low 14.0-18.0 [facility] Comment on above: Performed By: #### B FACILITIES PLANNER, T7, CMP, TSH #### [facility] [address] [place] [address] Dr. Get Whitten HYPERSEG NEUT SLIGHT Normal [facility] Comment on above: Performed By: #### B FACILITIES PLANNER, T7, CMP, TSH #### [facility] [address] [address] [address] Get Whitten LYMPHM # 0.89 103/ul Critically low 1.20-3.80 [facility] Comment on above: Performed By: #### B FACILITIES PLANNER, T7, CMP, TSH #### [facility] [address] [address] [address] Get Whitten LYMPHM% 7.0 % Critically low 20.5-60.0 [facility] Comment on above: Performed By: #### B FACILITIES PLANNER, T7, CMP, TSH #### [facility] [address] [place] [address] Dr. Get Whitten MCH 36.5 pg Critically high 25.9-34.0 [facility] Comment on above: Performed By: #### B FACILITIES PLANNER, T7, CMP, TSH #### [facility] [address] [place] [address] Dr. Get Whitten MCHC 35.5 g/dl Critically high 29.9-35.2 [facility] Comment on above: Performed By: #### B FACILITIES PLANNER, T7, CMP, TSH #### [facility] [address] [place] [address] Dr. Get Whitten MCV 102.8 fL Critically high 80.0-94.0 [facility] Comment on above: Performed By: #### B FACILITIES PLANNER, T7, CMP, TSH #### [facility] [address] [address] [address] Get Whitten METAMYELOCYTE # Normal [facility] Comment on above: Performed By: #### B FACILITIES PLANNER, T7, CMP, TSH #### [facility] [address] [place] [address] Dr. Get Whitten METAMYELOCYTE % Normal [facility] Comment on above: Performed By: #### B FACILITIES PLANNER, T7, CMP, TSH #### [facility] [address] [place] [address] Dr. eGt Whitten MONOM# 1.02 103/ul Critically high 0.30-0.80 [facility] Comment on above: Performed By: #### B FACILITIES PLANNER, T7, CMP, TSH #### [facility] [address] [address] [address] Get Whitten MONOM% 8.0 % Normal 1.7-12.0 [facility] Comment on above: Performed By: #### B FACILITIES PLANNER, T7, CMP, TSH #### [facility] [address] [address] [address] Get Whitten MPV 9.1 fL Critically low 9.5-13.5 [facility] Comment on above: Performed By: #### B FACILITIES PLANNER, T7, CMP, TSH #### [facility] [address] [place] [address] Dr. Get Whitten MYELOCYTE # Normal [facility] Comment on above: Performed By: #### B FACILITIES PLANNER, T7, CMP, TSH #### [facility] [address] [place] [address] Dr. Get Whitten MYELOCYTE % Normal [facility] Comment on above: Performed By: #### B FACILITIES PLANNER, T7, CMP, TSH #### [facility] [address] [place] [address] Dr. Get Whitten NRBC Normal [facility] Comment on above: Performed By: #### B FACILITIES PLANNER, T7, CMP, TSH #### [facility] [address] [place] [address] Dr. Get Whitten PLT 181 103/ul Normal 150-450 [facility] Comment on above: Performed By: #### B FACILITIES PLANNER, T7, CMP, TSH #### [facility] [address] [address] [address] Get Whitten RBC 3.53 106/ul Critically low 4.70-6.10 The [facility] Comment on above: Performed By: #### B FACILITIES PLANNER, T7, CMP, TSH #### [facility] [address] [place] [address] Dr. Get Whitten RDW 12.7 % Normal 11.0-15.0 [facility] Comment on above: Performed By: #### B FACILITIES PLANNER, T7, CMP, TSH #### [facility] [address] [place] [address] Dr. Get Whitten SEG # 10.54 103/ul Critically high 1.40-6.50 [facility] Comment on above: Performed By: #### B FACILITIES PLANNER, T7, CMP, TSH #### [facility] [address] [address] [address] Get Whitten SEG % 83.0 % Critically high 43.0-75.0 [facility] Comment on above: Performed By: #### B FACILITIES PLANNER, T7, CMP, TSH #### [facility] [address] [address] [address] Get Whitten WBC 12.7 103/ul Critically high 4.0-11.0 [facility] Comment on above: Performed By: #### B FACILITIES PLANNER, T7, CMP, TSH #### [facility] [address] [address] [address] Get Whitten PROF 14(COMP METB)on 022 Albumin [Mass/Vol] 3.0 g/dL Critically low 3.4-5.0 [facility] Comment on above: Performed By: #### B FACILITIES PLANNER, T7, CMP, TSH #### [facility] [address] [address] [address] Get Whitten Albumin/Globulin [Mass ratio] 1.2 {ratio} Normal [facility] Comment on above: Performed By: #### B FACILITIES PLANNER, T7, CMP, TSH #### [facility] [address] [address] [address] Get Whitten ALP [Catalytic activity/Vol] 39 U/L Critically low 46-116 [facility] Comment on above: Performed By: #### B FACILITIES PLANNER, T7, CMP, TSH #### [facility] [address] [address] [address] Get Whitten ALT [Catalytic activity/Vol] 94 U/L Critically high 16-63 [facility] Comment on above: Performed By: #### B FACILITIES PLANNER, T7, CMP, TSH #### [facility] [address] [address] [address] Get Whitten Anion gap [Moles/Vol] 11.4 mmol/L Normal [facility] Comment on above: Performed By: #### B FACILITIES PLANNER, T7, CMP, TSH #### [facility] [address] [address] [address] Get Whitten AST [Catalytic activity/Vol] 37 U/L Normal 15-37 [facility] Comment on above: Performed By: #### B FACILITIES PLANNER, T7, CMP, TSH #### [facility] [address] [address] [address] Get Whitten Bilirubin [Mass/Vol] 0.4 mg/dL Normal 0.2-1.0 The [facility] Comment on above: Performed By: #### B FACILITIES PLANNER, T7, CMP, TSH #### [facility] [address] [place] [address] Dr. Get Whitten Calcium [Mass/Vol] 7.9 mg/dL Critically low 8.5-10.1 Th e [facility] Comment on above: Performed By: #### B FACILITIES PLANNER, T7, CMP, TSH #### [facility] [address] [place] [address] Dr. Get Whitten Chloride [Moles/Vol] 102 mmol/L Normal 98-107 [facility] Comment on above: Performed By: #### B FACILITIES PLANNER, T7, CMP, TSH #### [facility] [address] [place] [address] Dr. Get Whitten CO2 [Moles/Vol] 21.0 mmol/L Normal 21.0-32.0 [facility] Comment on above: Performed By: #### B FACILITIES PLANNER, T7, CMP, TSH #### [facility] [address] [place] [address] Dr. Get Whitten Creatinine [Mass/Vol] 1.07 mg/dL Normal 0.70-1.30 [facility] Comment on above: Performed By: #### B FACILITIES PLANNER, T7, CMP, TSH #### [facility] [address] [place] [address] Dr. Get Whitten EGFR-AF LEBANESE >86 Normal >=60 [facility] Comment on above: Performed By: #### B FACILITIES PLANNER, T7, CMP, TSH #### [facility] [address] [place] [address] Dr. Get Whitten EGFR-NON AF LEBANESE >60 Normal >=60 [facility] Comment on above: Performed By: #### B FACILITIES PLANNER, T7, CMP, TSH #### [facility] [address] [address] [address] Get Whitten Globulin (S) [Mass/Vol] 2.6 g/dL Normal [facility] Comment on above: Performed By: #### B FACILITIES PLANNER, T7, CMP, TSH #### [facility] [address] [address] [address] Get Whitten Glucose [Mass/Vol] 132 mg/dL Critically high 74-106 [facility] Comment on above: Performed By: #### B FACILITIES PLANNER, T7, CMP, TSH #### [facility] [address] [place] [address] Dr. Get Whitten Potassium [Moles/Vol] 3.4 mmol/L Critically low 3.5-5.1 [facility] Comment on above: Performed By: #### B FACILITIES PLANNER, T7, CMP, TSH #### [facility] [address] [place] [address] Dr. Get Whitten Protein [Mass/Vol] 5.6 g/dL Critically low 6.4-8.2 [facility] Comment on above: Performed By: #### B FACILITIES PLANNER, T7, CMP, TSH #### [facility] [address] [place] [address] Dr. Get Whitten Sodium [Moles/Vol] 131 mmol/L Critically low 136-145 [facility] Comment on above: Performed By: #### B FACILITIES PLANNER, T7, CMP, TSH #### [facility] [address] [place] [address] Dr. Get Whitten Urea nitrogen [Mass/Vol] 16.0 mg/dL Normal 7.0-18.0 [facility] Comment on above: Performed By: #### B FACILITIES PLANNER, T7, CMP, TSH #### [facility] [address] [place] [address] Dr. Get Whitten Urea nitrogen/Creatinine [Mass ratio] 15.0 mg/mg [facility] Comment on above: Performed By: #### B FACILITIES PLANNER, T7, CMP, TSH #### [facility] [address] [place] [address] Dr. Get Whitten T3, TOTAL (TRIIODOTHYRONINE) on 03-28-2022 T3, TOTAL <20 Critically low 71-180 [facility] Comment on above: Performed By: #### C MP, HSTROPN, BNP #### [facility] [address] [place] [address] Dr. Get Whitten T4 [facility]ORPon 03-28-2022 T4 [Mass/Vol] 0.7 ug/dL Invalid Interpretation Code 4.5-12.0 [facility] Comment on above: Performed By: #### C VDTBH #### [facility] [address] [place] [address] Dr. Get Whitten BNPon 03-27-2022 Natriuretic peptide B (Bld) [Mass/Vol] 340.0 pg/mL Normal <=900.0 [facility] Comment on above: Performed By: #### B FACILITIES PLANNER, T7, CMP, TSH #### [facility] [address] [place] [address] Dr. Get Whitten CBC AUTO DIFFon 03-27-2022 BASO # 0.0 103/ul Normal 0.0-0.1 [facility] Comment on above: Performed By: #### C MP, HSTROPN, BNP #### [facility] [address] [place] [address] Dr. Get Whitten Basophils/100 WBC (Bld) 0.1 % Critically low 0.2-2.0 [facility] Comment on above: Performed By: #### C MP, HSTROPN, BNP #### [facility] [address] [place] [address] Dr. Get Whitten EO # 0.0 103/ul Normal 0.0-0.7 [facility] Comment on above: Performed By: #### C MP, HSTROPN, BNP #### [facility] [address] [place] [address] Dr. Get Whitten Eosinophils/100 WBC (Bld) 0.1 % Critically low 0.9-7.0 The [facility] Comment on above: Performed By: #### C MP, HSTROPN, BNP #### [facility] [address] [address] [address] Get Whitten Erythrocyte distribution width (RBC) [Ratio] 12.7 % Normal 11.0-15.0 [facility] Comment on above: Performed By: #### C MP, HSTROPN, BNP #### [facility] [address] [address] [address] Get Whitten Hematocrit (Bld) [Volume fraction] 38.7 % Critically low 42.0-54.0 [facility] Comment on above: Performed By: #### C MP, HSTROPN, BNP #### [facility] [address] [address] [address] Get Whitten Hemoglobin (Bld) [Mass/Vol] 13.6 g/dL Critically low 14.0-18.0 [facility] Comment on above: Performed By: #### C MP, HSTROPN, BNP #### [facility] [address] [address] [address] Get Whitten IG # 1.95 10e3/ul Critically high 0.00-0.03 [facility] Comment on above: Performed By: #### C MP, HSTROPN, BNP #### [facility] [address] [address] [address] Get Whitten IG % 16.0 % Critically high 0.0-0.5 [facility] Comment on above: Performed By: #### C MP, HSTROPN, BNP #### [facility] [address] [address] [address] Get Whitten LYMPH # 1.7 103/ul Normal 1.2-3.8 [facility] Comment on above: Performed By: #### C MP, HSTROPN, BNP #### [facility] [address] [address] [address] Get Whitten Lymphocytes/100 WBC (Bld) 13.8 % Critically low 20.5-60.0 [facility] Comment on above: Performed By: #### C MP, HSTROPN, BNP #### [facility] [address] [place] [address] Dr. Get Whitten MANUAL DIFF REQ NO Normal The [facility] Comment on above: Performed By: #### C MP, HSTROPN, BNP #### [facility] [address] [place] [address] Dr. Get Whitten MCH (RBC) [Entitic mass] 36.2 pg Critically high 25.9-34.0 [facility] Comment on above: Performed By: #### C MP, HSTROPN, BNP #### [facility] [address] [place] [address] Dr. Get Whitten MCHC (RBC) [Mass/Vol] 35.1 g/dL Normal 29.9-35.2 [facility] Comment on above: Performed By: #### C MP, HSTROPN, BNP #### [facility] [address] [place] [address] Dr. Get Whitten MCV (RBC) [Entitic vol] 102.9 fL Critically high 80.0-94.0 [facility] Comment on above: Performed By: #### C MP, HSTROPN, BNP #### [facility] [address] [place] [address] Dr. Get Whitten MONO # 0.4 103/ul Normal 0.3-0.8 [facility] Comment on above: Performed By: #### C MP, HSTROPN, BNP #### [facility] [address] [place] [address] Dr. Get Whitten Monocytes/100 WBC (Bld) 3.3 % Normal 1.7-12.0 [facility] Comment on above: Performed By: #### C MP, HSTROPN, BNP #### [facility] [address] [place] [address] Dr. Get Whitten NEUT # 8.2 103/ul Critically high 1.4-6.5 The [facility] Comment on above: Performed By: #### C MP, HSTROPN, BNP #### [facility] [address] [place] [address] Dr. Get Whitten Neutrophils/100 WBC (Bld) 66.7 % Normal 43.0-75.0 [facility] Comment on above: Performed By: #### C MP, HSTROPN, BNP #### [facility] [address] [place] [address] Dr. Get Whitten Platelet mean volume (Bld) [Entitic vol] 9.2 fL Critically low 9.5-13.5 [facility] Comment on above: Performed By: #### C MP, HSTROPN, BNP #### [facility] [address] [place] [address] Dr. Get Whitten PLT 167 103/ul Normal 150-450 [facility] Comment on above: Performed By: #### C MP, HSTROPN, BNP #### [facility] [address] [place] [address] Dr. Get Whitten RBC 3.76 106/ul Critically low 4.70-6.10 [facility] Comment on above: Performed By: #### C MP, HSTROPN, BNP #### [facility] [address] [place] [address] Dr. Get Whitten WBC 12.2 103/ul Critically high 4.0-11.0 [facility] Comment on above: Performed By: #### C MP, HSTROPN, BNP #### [facility] [address] [place] [address] Dr. Get Whitten PROF 14(COMP METB)on 022 Albumin [Mass/Vol] 3.1 g/dL Critically low 3.4-5.0 [facility] Comment on above: Performed By: #### B FACILITIES PLANNER, T7, CMP, TSH #### [facility] [address] [place] [address] Dr. Get Whitten Albumin/Globulin [Mass ratio] 1.1 {ratio} Normal [facility] Comment on above: Performed By: #### B FACILITIES PLANNER, T7, CMP, TSH #### [facility] [address] [address] [address] Get Whitten ALP [Catalytic activity/Vol] 44 U/L Critically low 46-116 [facility] Comment on above: Performed By: #### B FACILITIES PLANNER, T7, CMP, TSH #### [facility] [address] [address] [address] Get Whitten ALT [Catalytic activity/Vol] 87 U/L Critically high 16-63 [facility] Comment on above: Performed By: #### B FACILITIES PLANNER, T7, CMP, TSH #### [facility] [address] [address] [address] Get Whitten Anion gap [Moles/Vol] 12.6 mmol/L Normal [facility] Comment on above: Performed By: #### B FACILITIES PLANNER, T7, CMP, TSH #### [facility] [address] [address] [address] Get Whitten AST [Catalytic activity/Vol] 38 U/L Critically high 15-37 [facility] Comment on above: Performed By: #### B FACILITIES PLANNER, T7, CMP, TSH #### [facility] [address] [address] [address] Get Whitten Bilirubin [Mass/Vol] 0.4 mg/dL Normal 0.2-1.0 [facility] Comment on above: Performed By: #### B FACILITIES PLANNER, T7, CMP, TSH #### [facility] [address] [address] [address] Get Whitten Calcium [Mass/Vol] 7.7 mg/dL Critically low 8.5-10.1 [facility] Comment on above: Performed By: #### B FACILITIES PLANNER, T7, CMP, TSH #### [facility] [address] [address] [address] Get Whitten Chloride [Moles/Vol] 97 mmol/L Critically low 98-107 [facility] Comment on above: Performed By: #### B FACILITIES PLANNER, T7, CMP, TSH #### [facility] [address] [address] [address] Get Whitten CO2 [Moles/Vol] 22.1 mmol/L Normal 21.0-32.0 [facility] Comment on above: Performed By: #### B FACILITIES PLANNER, T7, CMP, TSH #### [facility] [address] [address] [address] Get Whitten Creatinine [Mass/Vol] 1.17 mg/dL Normal 0.70-1.30 [facility] Comment on above: Performed By: #### B FACILITIES PLANNER, T7, CMP, TSH #### [facility] [address] [place] [address] Dr. Get Whitten EGFR-AF LEBANESE >60 Normal >=60 [facility] Comment on above: Performed By: #### B FACILITIES PLANNER, T7, CMP, TSH #### [facility] [address] [place] [address] Dr. Get Whitten EGFR-NON AF LEBANESE >60 Normal >=60 [facility] Comment on above: Performed By: #### B FACILITIES PLANNER, T7, CMP, TSH #### [facility] [address] [place] [address] Dr. Get Whitten Globulin (S) [Mass/Vol] 2.7 g/dL Normal [facility] Comment on above: Performed By: #### B FACILITIES PLANNER, T7, CMP, TSH #### [facility] [address] [place] [address] Dr. Get Whitten Glucose [Mass/Vol] 165 mg/dL Critically high 74-106 T [facility] Comment on above: Performed By: #### B FACILITIES PLANNER, T7, CMP, TSH #### [facility] [address] [place] [address] Dr. Get Whitten Potassium [Moles/Vol] 3.7 mmol/L Normal 3.5-5.1 [facility] Comment on above: Performed By: #### B FACILITIES PLANNER, T7, CMP, TSH #### [facility] [address] [place] [address] Dr. Get Whitten Protein [Mass/Vol] 5.8 g/dL Critically low 6.4-8.2 [facility] Comment on above: Performed By: #### B FACILITIES PLANNER, T7, CMP, TSH #### [facility] [address] [place] [address] Dr. Get Whitten Sodium [Moles/Vol] 128 mmol/L Critically low 136-145 Th e [facility] Comment on above: Performed By: #### B FACILITIES PLANNER, T7, CMP, TSH #### [facility] [address] [place] [address] Dr. Get Whitten Urea nitrogen [Mass/Vol] 17.0 mg/dL Normal 7.0-18.0 [facility] Comment on above: Performed By: #### B FACILITIES PLANNER, T7, CMP, TSH #### [facility] [address] [place] [address] Dr. Get Whitten Urea nitrogen/Creatinine [Mass ratio] 14.5 mg/mg Normal [facility] Comment on above: Performed By: #### B FACILITIES PLANNER, T7, CMP, TSH #### [facility] [address] [place] [address] Dr. Get Whitten SODIUM RANDOM URINEon 2021 Sodium (U) [Moles/Vol] 6 mmol/L Critically low 30-90 [facility] Comment on above: Performed By: #### B FACILITIES PLANNER, T7, CMP, TSH #### [facility] [address] [place] [address] Dr. Get Whitten BNPon 03-26-2022 Natriuretic peptide B (Bld) [Mass/Vol] 472.0 pg/mL Normal <=900.0 [facility] Comment on above: Performed By: #### C MP, HSTROPN, BNP #### [facility] [address] [place] [address] Dr. Get Whitten CARDIAC ANA 3-6on 2 CK [Catalytic activity/Vol] 53 U/L Normal 39-308 [facility] Comment on above: Performed By: #### C VDTBH #### [facility] [address] [place] [address] Dr. Get Whitten CK.MB [Mass/Vol] 1.61 ng/mL Normal <=3.60 [facility] Comment on above: Performed By: #### C VDTBH #### [facility] [address] [place] [address] Dr. Get Whitten HSTROP 20.2 pg/mL Normal 4.0-76.1 [facility] Comment on above: Result Comment: CUT- OFF POINTS HAVE BEEN ESTABLISHED BASED ON THE FOURTH UNIVERSAL DEFINITIONS OF MYOCARDIAL INFARCTION. THE UPPER REFERENCE LIMIT (URL) OF TROPONIN, DEFINED THE 99TH PERCENTILE OF cTnI DISTRIBUTION IN A REFERENCE POPULATION, HAS BEEN CONFIRMED THE DECISION THRESHOLD FOR IA DIAGNOSIS. Performed By: #### C VDTBH #### [facility] [address] [place] [address] Dr. Get Whitten CK [Catalytic activity/Vol] 40 U/L Normal 39-308 [facility] Comment on above: Performed By: #### B FACILITIES PLANNER, T7, CMP, TSH #### [facility] [address] [place] [address] Dr. Get Whitten CK.MB [Mass/Vol] 1.53 ng/mL Normal <=3.60 [facility] Comment on above: Performed By: #### B FACILITIES PLANNER, T7, CMP, TSH #### [facility] [address] [place] [address] Dr. Get Whitten HSTROP 23.6 pg/mL Normal 4.0-76.1 [facility] Comment on above: Result Comment: CUT- OFF POINTS HAVE BEEN ESTABLISHED BASED ON THE FOURTH UNIVERSAL DEFINITIONS OF MYOCARDIAL INFARCTION. THE UPPER REFERENCE LIMIT (URL) OF TROPONIN, DEFINED THE 99TH PERCENTILE OF cTnI DISTRIBUTION IN A REFERENCE POPULATION, HAS BEEN CONFIRMED THE DECISION THRESHOLD FOR IA DIAGNOSIS. Performed By: #### B FACILITIES PLANNER, T7, CMP, TSH #### [facility] [address] [place] [address] Dr. Get Whitten CBC W MANUAL DIFFon 03-26-20 22 ATYPICAL LYMPH # Normal [facility] Comment on above: Performed By: #### C MP, HSTROPN, BNP #### [facility] [address] [place] [address] Dr. Get Whitten ATYPICAL LYMPH % Normal [facility] Comment on above: Performed By: #### C MP, HSTROPN, BNP #### [facility] [address] [place] [address] Dr. Get Whitten BAND # 0.5 103/ul Critically high 0.0-0.3 [facility] Comment on above: Performed By: #### C MP, HSTROPN, BNP #### [facility] [address] [address] [address] Get Whitten BAND % 4 % Normal 0-5 [facility] Comment on above: Performed By: #### C MP, HSTROPN, BNP #### [facility] [address] [address] [address] Get Whitten BASOM # 0.00 103/ul Normal 0.00-0.10 [facility] Comment on above: Performed By: #### C MP, HSTROPN, BNP #### [facility] [address] [place] [address] Dr. Get Whitten BASOM % 0.0 % Critically low 0.2-2.0 [facility] Comment on above: Performed By: #### C MP, HSTROPN, BNP #### [facility] [address] [place] [address] Dr. Get Whitten BLAST # Normal [facility] Comment on above: Performed By: #### C MP, HSTROPN, BNP #### [facility] [address] [place] [address] Dr. Get Whitten BLAST % Normal [facility] Comment on above: Performed By: #### C MP, HSTROPN, BNP #### [facility] [address] [place] [address] Dr. eGt Whitten CORRECTED WBC Normal 4.0-11.0 [facility] Comment on above: Performed By: #### C MP, HSTROPN, BNP #### [facility] [address] [place] [address] Dr. Get Whitten EOS # 0.00 103/ul Normal 0.00-0.70 [facility] Comment on above: Performed By: #### C MP, HSTROPN, BNP #### [facility] [address] [address] [address] Get Whitten EOS% 0.0 % Critically low 0.9-7.0 [facility] Comment on above: Performed By: #### C MP, HSTROPN, BNP #### [facility] [address] [address] [address] Get Whitten HCT 44.0 % Normal 42.0-54.0 [facility] Comment on above: Performed By: #### C MP, HSTROPN, BNP #### [facility] [address] [address] [address] Get Whitten HGB 15.8 g/dl Normal 14.0-18.0 [facility] Comment on above: Performed By: #### C MP, HSTROPN, BNP #### [facility] [address] [place] [address] Dr. Get Whitten HYPERSEG NEUT 2+ Normal [facility] Comment on above: Performed By: #### C MP, HSTROPN, BNP #### [facility] [address] [place] [address] Dr. Get Whitten LYMPHM # 1.56 103/ul Normal 1.20-3.80 [facility] Comment on above: Performed By: #### C MP, HSTROPN, BNP #### [facility] [address] [address] [address] Get Whitten LYMPHM% 13.0 % Critically low 20.5-60.0 [facility] Comment on above: Performed By: #### C MP, HSTROPN, BNP #### [facility] [address] [address] [address] Get Whitten MCH 36.2 pg Critically high 25.9-34.0 [facility] Comment on above: Performed By: #### C MP, HSTROPN, BNP #### [facility] [address] [place] [address] Dr. Get Whitten MCHC 35.9 g/dl Critically high 29.9-35.2 [facility] Comment on above: Performed By: #### C MP, HSTROPN, BNP #### [facility] [address] [address] [address] Get Whitten MCV 100.7 fL Critically high 80.0-94.0 [facility] Comment on above: Performed By: #### C MP, HSTROPN, BNP #### [facility] [address] [place] [address] Dr. Get Whitten METAMYELOCYTE # Normal [facility] Comment on above: Performed By: #### C MP, HSTROPN, BNP #### [facility] [address] [place] [address] Dr. Get Whitten METAMYELOCYTE % Normal [facility] Comment on above: Performed By: #### C MP, HSTROPN, BNP #### [facility] [address] [place] [address] Dr. Get Whitten MONOM# 1.08 103/ul Critically high 0.30-0.80 [facility] Comment on above: Performed By: #### C MP, HSTROPN, BNP #### [facility] [address] [place] [address] Dr. Get Whitten MONOM% 9.0 % Normal 1.7-12.0 [facility] Comment on above: Performed By: #### C MP, HSTROPN, BNP #### [facility] [address] [place] [address] Dr. Get Whitten MPV 10.3 fL Normal 9.5-13.5 [facility] Comment on above: Performed By: #### C MP, HSTROPN, BNP #### [facility] [address] [place] [address] Dr. Get Whitten MYELOCYTE # Normal [facility] Comment on above: Performed By: #### C MP, HSTROPN, BNP #### [facility] [address] [place] [address] Dr. Get Whitten MYELOCYTE % Normal [facility] Comment on above: Performed By: #### C MP, HSTROPN, BNP #### [facility] [address] [place] [address] Dr. Get Whitten NRBC Normal [facility] Comment on above: Performed By: #### C MP, HSTROPN, BNP #### [facility] [address] [address] [address] Get Whitten PLT 111 103/ul Critically low 150-450 [facility] Comment on above: Performed By: #### C MP, HSTROPN, BNP #### [facility] [address] [address] [address] Get Whitten RBC 4.37 106/ul Critically low 4.70-6.10 [facility] Comment on above: Performed By: #### C MP, HSTROPN, BNP #### [facility] [address] [place] [address] Dr. Get Whitten RDW 12.4 % Normal 11.0-15.0 [facility] Comment on above: Performed By: #### C MP, HSTROPN, BNP #### [facility] [address] [place] [address] Dr. Get Whitten SEG # 8.88 103/ul Critically high 1.40-6.50 [facility] Comment on above: Performed By: #### C MP, HSTROPN, BNP #### [facility] [address] [place] [address] Dr. Get Whitten SEG % 74.0 % Normal 43.0-75.0 [facility] Comment on above: Performed By: #### C MP, HSTROPN, BNP #### [facility] [address] [place] [address] Dr. Get Whitten WBC 12.0 103/ul Critically high 4.0-11.0 [facility] Comment on above: Performed By: #### C MP, HSTROPN, BNP #### [facility] [address] [place] [address] Dr. Get Whitten CRPon 03-26-2022 CRP [Mass/Vol] mg/L Normal <=1.0 [facility] Comment on above: Performed By: #### C MP, HSTROPN, BNP #### [facility] [address] [place] [address] Dr. Get Whitten Covid-19 PCR (CVDTB)on 03-16 SARS-CoV-2 (COVID-19) RNA ASHLEE+probe Ql (Unsp spec) Detected Critically abnormal NOT DETECTED [facility] Comment on above: Result Comment: This test is not yet approved or cleared by the [place] FDA. When there are no FDA-approved or cleared tests available, and other criteria are met, FDA can make tests available under an emergency access mechanism called an Emergency Use Authorization (EUA). The EUA for this test is supported by the Fire Prevention Research Engineer of Health and Human Service's declaration that [...] used). Performed By: #### C VDTBH #### [facility] [address] [place] [address] Dr. Get Whitten LACTATE/LACTIC ACIDon 2021 Lactate [Moles/Vol] 0.4 mmol/L Normal 0.4-1.9 [facility] Comment on above: Performed By: #### C MP, HSTROPN, BNP #### [facility] [address] [place] [address] Dr. Get Whitten NAon 03-26-2022 Sodium [Moles/Vol] 126 mmol/L Critically low 136-145 [facility] Comment on above: Performed By: #### B FACILITIES PLANNER, T7, CMP, TSH #### [facility] [address] [place] [address] Dr. Get Whitten PROF 14(COMP METB)on 022 Albumin [Mass/Vol] 3.6 g/dL Normal 3.4-5.0 [facility] Comment on above: Performed By: #### C MP, HSTROPN, BNP #### [facility] [address] [place] [address] Dr. Gte Whitten Albumin/Globulin [Mass ratio] 1.0 {ratio} Normal [facility] Comment on above: Performed By: #### C MP, HSTROPN, BNP #### [facility] [address] [place] [address] Dr. Get Whitten ALP [Catalytic activity/Vol] 49 U/L Normal 46-116 [facility] Comment on above: Performed By: #### C MP, HSTROPN, BNP #### [facility] [address] [place] [address] Dr. Get Whitten ALT [Catalytic activity/Vol] 80 U/L Critically high 16-63 [facility] Comment on above: Performed By: #### C MP, HSTROPN, BNP #### [facility] [address] [place] [address] Dr. Get Whitten Anion gap [Moles/Vol] 16.2 mmol/L Normal [facility] Comment on above: Performed By: #### C MP, HSTROPN, BNP #### [facility] [address] [place] [address] Dr. Get Whitten AST [Catalytic activity/Vol] 42 U/L Critically high 15-37 [facility] Comment on above: Performed By: #### C MP, HSTROPN, BNP #### [facility] [address] [place] [address] Dr. Get Whitten Bilirubin [Mass/Vol] 0.7 mg/dL Normal 0.2-1.0 [facility] Comment on above: Performed By: #### C MP, HSTROPN, BNP #### [facility] [address] [place] [address] Dr. Get Whitten Calcium [Mass/Vol] 8.4 mg/dL Critically low 8.5-10.1 Th e [facility] Comment on above: Performed By: #### C MP, HSTROPN, BNP #### [facility] [address] [place] [address] Dr. Get Whitten Chloride [Moles/Vol] 91 mmol/L Critically low 98-107 [facility] Comment on above: Performed By: #### C MP, HSTROPN, BNP #### [facility] [address] [address] [address] Get Whitten CO2 [Moles/Vol] 19.8 mmol/L Critically low 21.0-32.0 [facility] Comment on above: Performed By: #### C MP, HSTROPN, BNP #### [facility] [address] [address] [address] Get Whitten Creatinine [Mass/Vol] 1.11 mg/dL Normal 0.70-1.30 [facility] Comment on above: Performed By: #### C MP, HSTROPN, BNP #### [facility] [address] [address] [address] Get Whitten EGFR-AF LEBANESE >60 Normal >=60 [facility] Comment on above: Performed By: #### C MP, HSTROPN, BNP #### [facility] [address] [address] [address] Get Whitten EGFR-NON AF LEBANESE >60 Normal >=60 [facility] Comment on above: Performed By: #### C MP, HSTROPN, BNP #### [facility] [address] [address] [address] Get Whitten Globulin (S) [Mass/Vol] 3.6 g/dL Normal [facility] Comment on above: Performed By: #### C MP, HSTROPN, BNP #### [facility] [address] [address] [address] Get Whitten Glucose [Mass/Vol] 109 mg/dL Critically high 74-106 T [facility] Comment on above: Performed By: #### C MP, HSTROPN, BNP #### [facility] [address] [address] [address] Get Whitten Potassium [Moles/Vol] 4.0 mmol/L Normal 3.5-5.1 [facility] Comment on above: Performed By: #### C MP, HSTROPN, BNP #### [facility] [address] [address] [address] Get Whitten Protein [Mass/Vol] 7.2 g/dL Normal 6.4-8.2 [facility] Comment on above: Performed By: #### C MP HSTROPN, BNP #### [facility] [address] [address] [address] Get Whitten Sodium [Moles/Vol] 123 mmol/L Critically low 136-145 Th e [facility] Comment on above: Performed By: #### C MP HSTROPN, BNP #### [facility] [address] [address] [address] Get Whitten Urea nitrogen [Mass/Vol] 15.0 mg/dL Normal 7.0-18.0 [facility] Comment on above: Performed By: #### C FILOMENA HSTROPN, BNP #### [facility] [address] [place] [address] Dr. Get Whitten Urea nitrogen/Creatinine [Mass ratio] 13.5 mg/mg Normal [facility] Comment on above: Performed By: #### C FILOMENA HSTROPN, BNP #### [facility] [address] [place] [address] Dr. Get Whitten SPUTUM GRAM STAINon 03-26-20 COMMENTS NO ORGANISMS OBSERVED Normal [facility] Comment on above: Performed By: #### C VDTBH #### [facility] [address] [place] [address] Dr. Get Whitten DIPHTHEROIDS Normal [facility] Comment on above: Performed By: #### C VDTBH #### [facility] [address] [address] [address] Get Whitten EPITHELIALS <25 Normal [facility] Comment on above: Performed By: #### C VDTBH #### [facility] [address] [address] [address] Get Whitten FUNGAL ELEMENTS Normal [facility] Comment on above: Performed By: #### C VDTBH #### [facility] [facility] [address] [place] [address] Dr. Get Whitten GRAM NEG BACILLI Normal [facility] Comment on above: Performed By: #### C VDTBH #### [facility] [address] [place] [address] Dr. Get Whitten GRAM NEG DIPPLOCOCCI Normal [facility] Comment on above: Performed By: #### C VDTBH #### [facility] [address] [place] [address] Dr. Get Whitten GRAM POS BACILLI Normal [facility] Comment on above: Performed By: #### C VDTBH #### [facility] [address] [place] [address] Dr. Get Whitten GRAM POSITIVE COCCI Normal [facility] Comment on above: Performed By: #### C VDTBH #### [facility] [address] [place] [address] Dr. Get Whitten WBC (Bld) [#/Vol] 10*3/uL Normal [facility] Comment on above: Performed By: #### C VDTBH #### [facility] [address] [place] [address] Dr. Get Whitten TROPONIN, HIGH SENSITIVITYon 03-26-2022 HSTROP 19.8 pg/mL Normal 4.0-76.1 The [facility] Comment on above: Result Comment: CUT- OFF POINTS HAVE BEEN ESTABLISHED BASED ON THE FOURTH UNIVERSAL DEFINITIONS OF MYOCARDIAL INFARCTION. THE UPPER REFERENCE LIMIT (URL) OF TROPONIN, DEFINED THE 99TH PERCENTILE OF cTnI DISTRIBUTION IN A REFERENCE POPULATION, HAS BEEN CONFIRMED THE DECISION THRESHOLD FOR IA DIAGNOSIS. Performed By: #### C MP, HSTROPN, BNP #### [facility] [address] [place] [address] Dr. Get Whitten TSHon 03-26-2022 TSH 51.305 uIU/mL Critically high 0.358-3.740 The [facility] Comment on above: Performed By: #### C MP, HSTROPN, BNP #### [facility] [address] [place] [address] Dr. Get Whitten XR CHEST 1 Von 03-26-2022 XR CHEST 1 V EXAM: XR CHEST 1 V HISTORY: COUGH COMPARISON: Chest x-ray 03/23/2022 TECHNIQUE: Single frontal view chest x-ray FINDINGS: No lobar consolidation, large pleural effusions, pneumothorax, or acute bony abnormality. Cardiac size is unremarkable. IMPRESSION: No radiographic evidence for acute chest abnormality. Electronically authenticated by: JANKI STEEL Date: 2022-03-26 04:14 Normal [facility] BNPon 03-23-2022 Natriuretic peptide B (Bld) [Mass/Vol] 385.0 pg/mL Normal <=900.0 The [facility] Comment on above: Performed By: #### C MP, HSTROPN, BNP #### [facility] [address] [address] [address] Get Whitten CBC W MANUAL DIFFon 03-23-20 22 ATYPICAL LYMPH # Normal [facility] Comment on above: Performed By: #### B FACILITIES PLANNER, T7, CMP, TSH #### [facility] [address] [place] [address] Dr. Get Whitten ATYPICAL LYMPH % Normal [facility] Comment on above: Performed By: #### B FACILITIES PLANNER, T7, CMP, TSH #### [facility] [address] [place] [address] Dr. Get Whitten BAND # 0.2 103/ul Normal 0.0-0.3 The [facility] Comment on above: Performed By: #### B FACILITIES PLANNER, T7, CMP, TSH #### [facility] [address] [place] [address] Dr. Get Whitten BAND % 2 % Normal 0-5 The [facility] Comment on above: Performed By: #### B FACILITIES PLANNER, T7, CMP, TSH #### [facility] [address] [place] [address] Dr. Get Whitten BASOM # 0.00 103/ul Normal 0.00-0.10 The [facility] Comment on above: Performed By: #### B FACILITIES PLANNER, T7, CMP, TSH #### [facility] [address] [place] [address] Dr. Get Whitten BASOM % 0.0 % Critically low 0.2-2.0 The [facility] Comment on above: Performed By: #### B FACILITIES PLANNER, T7, CMP, TSH #### [facility] [address] [place] [address] Dr. Get Whitten BLAST # Normal [facility] Comment on above: Performed By: #### B FACILITIES PLANNER, T7, CMP, TSH #### [facility] [address] [address] [address] Get Whitten BLAST % Normal [facility] Comment on above: Performed By: #### B FACILITIES PLANNER, T7, CMP, TSH #### [facility] [address] [address] [address] Get Whitten CORRECTED WBC Normal 4.0-11.0 [facility] Comment on above: Performed By: #### B FACILITIES PLANNER, T7, CMP, TSH #### [facility] [address] [address] [address] Get Whitten EOS # 0.00 103/ul Normal 0.00-0.70 [facility] Comment on above: Performed By: #### B FACILITIES PLANNER, T7, CMP, TSH #### [facility] [address] [place] [address] Dr. Get Whitten EOS% 0.0 % Critically low 0.9-7.0 [facility] Comment on above: Performed By: #### B FACILITIES PLANNER, T7, CMP, TSH #### [facility] [address] [address] [address] Get Whitten HCT 45.6 % Normal 42.0-54.0 [facility] Comment on above: Performed By: #### B FACILITIES PLANNER, T7, CMP, TSH #### [facility] [address] [address] [address] Get Whitten HGB 16.3 g/dl Normal 14.0-18.0 [facility] Comment on above: Performed By: #### B FACILITIES PLANNER, T7, CMP, TSH #### [facility] [address] [address] [address] Get Whitten LYMPHM # 0.89 103/ul Critically low 1.20-3.80 [facility] Comment on above: Performed By: #### B FACILITIES PLANNER, T7, CMP, TSH #### [facility] [address] [address] [address] Get Whitten LYMPHM% 9.0 % Critically low 20.5-60.0 [facility] Comment on above: Performed By: #### B FACILITIES PLANNER, T7, CMP, TSH #### [facility] [address] [place] [address] Dr. Get Whitten MCH 36.5 pg Critically high 25.9-34.0 [facility] Comment on above: Performed By: #### B FACILITIES PLANNER, T7, CMP, TSH #### [facility] [address] [place] [address] Dr. Get Whitten MCHC 35.7 g/dl Critically high 29.9-35.2 The [facility] Comment on above: Performed By: #### B FACILITIES PLANNER, T7, CMP, TSH #### [facility] [address] [place] [address] Dr. Get Whitten MCV 102.0 fL Critically high 80.0-94.0 [facility] Comment on above: Performed By: #### B FACILITIES PLANNER, T7, CMP, TSH #### [facility] [address] [place] [address] Dr. Get Whitten METAMYELOCYTE # Normal The [facility] Comment on above: Performed By: #### B FACILITIES PLANNER, T7, CMP, TSH #### [facility] [address] [place] [address] Dr. Get Whitten METAMYELOCYTE % Normal [facility] Comment on above: Performed By: #### B FACILITIES PLANNER, T7, CMP, TSH #### [facility] [address] [place] [address] Dr. Get Whitten MONOM# 0.89 103/ul Critically high 0.30-0.80 [facility] Comment on above: Performed By: #### B FACILITIES PLANNER, T7, CMP, TSH #### [facility] [address] [place] [address] Dr. Get Whitten MONOM% 9.0 % Normal 1.7-12.0 [facility] Comment on above: Performed By: #### B FACILITIES PLANNER, T7, CMP, TSH #### [facility] [address] [place] [address] Dr. Get Whitten MPV 8.8 fL Critically low 9.5-13.5 [facility] Comment on above: Performed By: #### B FACILITIES PLANNER, T7, CMP, TSH #### [facility] [address] [address] [address] Get Whitten MYELOCYTE # Normal [facility] Comment on above: Performed By: #### B FACILITIES PLANNER, T7, CMP, TSH #### [facility] [address] [address] [address] Get Whitten MYELOCYTE % Normal [facility] Comment on above: Performed By: #### B FACILITIES PLANNER, T7, CMP, TSH #### [facility] [address] [address] [address] Get Whitten NRBC Normal [facility] Comment on above: Performed By: #### B FACILITIES PLANNER, T7, CMP, TSH #### [facility] [address] [place] [address] Dr. Get Whitten PLT 156 103/ul Normal 150-450 [facility] Comment on above: Performed By: #### B FACILITIES PLANNER, T7, CMP, TSH #### [facility] [address] [address] [address] Get Whitten RBC 4.47 106/ul Critically low 4.70-6.10 The [facility] Comment on above: Performed By: #### B FACILITIES PLANNER, T7, CMP, TSH #### [facility] [address] [place] [address] Dr. Get Whitten RDW 12.4 % Normal 11.0-15.0 [facility] Comment on above: Performed By: #### B FACILITIES PLANNER, T7, CMP, TSH #### [facility] [address] [place] [address] Dr. Get Whitten SEG # 7.92 103/ul Critically high 1.40-6.50 [facility] Comment on above: Performed By: #### B FACILITIES PLANNER, T7, CMP, TSH #### [facility] [address] [address] [address] Get Whitten SEG % 80.0 % Critically high 43.0-75.0 [facility] Comment on above: Performed By: #### B FACILITIES PLANNER, T7, CMP, TSH #### [facility] [address] [place] [address] Dr. Get Whitten WBC 9.9 103/ul Normal 4.0-11.0 [facility] Comment on above: Performed By: #### B FACILITIES PLANNER, T7, CMP, TSH #### [facility] [address] [place] [address] Dr. Get Whitten PROF 14(COMP METB)on 022 Albumin [Mass/Vol] 3.9 g/dL Normal 3.4-5.0 [facility] Comment on above: Performed By: #### C MP, HSTROPN, BNP #### [facility] [address] [place] [address] Dr. Get Whitten Albumin/Globulin [Mass ratio] 1.1 {ratio} Normal [facility] Comment on above: Performed By: #### C MP, HSTROPN, BNP #### [facility] [address] [place] [address] Dr. Get Whitten ALP [Catalytic activity/Vol] 55 U/L Normal 46-116 [facility] Comment on above: Performed By: #### C MP, HSTROPN, BNP #### [facility] [address] [place] [address] Dr. Get Whitten ALT [Catalytic activity/Vol] 67 U/L Critically high 16-63 [facility] Comment on above: Performed By: #### C MP, HSTROPN, BNP #### [facility] [address] [place] [address] Dr. Get Whitten Anion gap [Moles/Vol] 13.2 mmol/L Normal [facility] Comment on above: Performed By: #### C MP, HSTROPN, BNP #### [facility] [address] [place] [address] Dr. Get Whitten AST [Catalytic activity/Vol] 20 U/L Normal 15-37 [facility] Comment on above: Performed By: #### C MP, HSTROPN, BNP #### [facility] [address] [place] [address] Dr. Get Whitten Bilirubin [Mass/Vol] 0.4 mg/dL Normal 0.2-1.0 [facility] Comment on above: Performed By: #### C MP, HSTROPN, BNP #### [facility] [address] [address] [address] Get Whitten Calcium [Mass/Vol] 8.5 mg/dL Normal 8.5-10.1 The [facility] Comment on above: Performed By: #### C MP, HSTROPN, BNP #### [facility] [address] [address] [address] Get Whitten Chloride [Moles/Vol] 93 mmol/L Critically low 98-107 The [facility] Comment on above: Performed By: #### C MP, HSTROPN, BNP #### [facility] [address] [address] [address] Get Whitten CO2 [Moles/Vol] 22.6 mmol/L Normal 21.0-32.0 [facility] Comment on above: Performed By: #### C MP, HSTROPN, BNP #### [facility] [address] [address] [address] Get Whitten Creatinine [Mass/Vol] 1.26 mg/dL Normal 0.70-1.30 The [facility] Comment on above: Performed By: #### C MP, HSTROPN, BNP #### [facility] [address] [address] [address] Get Whitten EGFR-AF LEBANESE >60 Normal >=60 [facility] Comment on above: Performed By: #### C MP, HSTROPN, BNP #### [facility] [address] [address] [address] Get Whitten EGFR-NON AF LEBANESE 59 mL/min/1.73m2 Critically low >=60 The [facility] Comment on above: Performed By: #### C MP, HSTROPN, BNP #### [facility] [address] [address] [address] Get Whitten Globulin (S) [Mass/Vol] 3.5 g/dL Normal [facility] Comment on above: Performed By: #### C MP, HSTROPN, BNP #### [facility] [address] [address] [address] Get Whitten Glucose [Mass/Vol] 144 mg/dL Critically high 74-106 T [facility] Comment on above: Performed By: #### C MP, HSTROPN, BNP #### [facility] [address] [place] [address] Dr. Get Whitten Potassium [Moles/Vol] 3.9 mmol/L Normal 3.5-5.1 [facility] Comment on above: Performed By: #### C MP, HSTROPN, BNP #### [facility] [address] [place] [address] Dr. Get Whitten Protein [Mass/Vol] 7.4 g/dL Normal 6.4-8.2 [facility] Comment on above: Performed By: #### C MP, HSTROPN, BNP #### [facility] [address] [place] [address] Dr. Get Whitten Sodium [Moles/Vol] 125 mmol/L Critically low 136-145 [facility] Comment on above: Performed By: #### C MP, HSTROPN, BNP #### [facility] [address] [place] [address] Dr. Get Whitten Urea nitrogen [Mass/Vol] 14.0 mg/dL Normal 7.0-18.0 [facility] Comment on above: Performed By: #### C MP, HSTROPN, BNP #### [facility] [address] [place] [address] Dr. Get Whitten Urea nitrogen/Creatinine [Mass ratio] 11.1 mg/mg Normal [facility] Comment on above: Performed By: #### C MP, HSTROPN, BNP #### [facility] [address] [place] [address] Dr. Get Whitten TROPONIN, HIGH SENSITIVITYon 03-23-2022 HSTROP 6.6 pg/mL Normal 4.0-76.1 [facility] Comment on above: Result Comment: CUT- OFF POINTS HAVE BEEN ESTABLISHED BASED ON THE FOURTH UNIVERSAL DEFINITIONS OF MYOCARDIAL INFARCTION. THE UPPER REFERENCE LIMIT (URL) OF TROPONIN, DEFINED THE 99TH PERCENTILE OF cTnI DISTRIBUTION IN A REFERENCE POPULATION, HAS BEEN CONFIRMED THE DECISION THRESHOLD FOR IA DIAGNOSIS. Performed By: #### C MP, HSTROPN, BNP #### [facility] [address] [place], [place] [address] Dr. Get Whitten XR CHEST 1 Von [...] SHEN SOSA Date: 2022-03-23 15:02 Normal [facility] Covid-19 PCR (CVDTBH)on SARS-CoV-2 (COVID-19) RNA ASHLEE+probe Ql (Unsp spec) Detected Critically abnormal NOT DETECTED The [facility] Comment on above: Result Comment: This test is not yet approved or cleared by the [place] FDA. When there are no FDA-approved or cleared tests available, and other criteria are met, FDA can make tests available under an emergency access mechanism called an Emergency Use Authorization (EUA). The EUA for this test is supported by the [place] of Health and Human Service's declaration that [...] By: #### C MP, HSTROPN, BNP #### [facility] [address] [place] [address] Dr. Get Whitten CBC AUTO DIFFon 01-24-2022 BASO # 0.1 103/ul Normal 0.0-0.1 [facility] Comment on above: Performed By: #### B FACILITIES PLANNER, T7, CMP, TSH #### [facility] [address] [place] [address] Dr. Get Whitten Basophils/100 WBC (Bld) 0.6 % Normal 0.2-2.0 The [facility] Comment on above: Performed By: #### B FACILITIES PLANNER, T7, CMP, TSH #### [facility] [address] [place] [address] Dr. Get Whitten EO # 0.0 103/ul Normal 0.0-0.7 The [facility] Comment on above: Performed By: #### B FACILITIES PLANNER, T7, CMP, TSH #### [facility] [address] [place] [address] Dr. Get Whitten Eosinophils/100 WBC (Bld) 0.1 % Critically low 0.9-7.0 The [facility] Comment on above: Performed By: #### B FACILITIES PLANNER, T7, CMP, TSH #### [facility] [address] [place] [address] Dr. Get Whitten Erythrocyte distribution width (RBC) [Ratio] 13.1 % Normal 11.0-15.0 [facility] Comment on above: Performed By: #### B FACILITIES PLANNER, T7, CMP, TSH #### [facility] [address] [place] [address] Dr. Get Whitten Hematocrit (Bld) [Volume fraction] 41.0 % Critically low 42.0-54.0 [facility] Comment on above: Performed By: #### B FACILITIES PLANNER, T7, CMP, TSH #### [facility] [address] [place] [address] Dr. Get Whitten Hemoglobin (Bld) [Mass/Vol] 14.3 g/dL Normal 14.0-18.0 [facility] Comment on above: Performed By: #### B FACILITIES PLANNER, T7, CMP, TSH #### [facility] [address] [place] [address] Dr. Get Whitten IG # 0.25 10e3/ul Critically high 0.00-0.03 [facility] Comment on above: Performed By: #### B FACILITIES PLANNER, T7, CMP, TSH #### [facility] [address] [place] [address] Dr. Get Whitten IG % 2.3 % Critically high 0.0-0.5 The [facility] Comment on above: Performed By: #### B FACILITIES PLANNER, T7, CMP, TSH #### [facility] [address] [place] [address] Dr. Get Whitten LYMPH # 2.4 103/ul Normal 1.2-3.8 [facility] Comment on above: Performed By: #### B FACILITIES PLANNER, T7, CMP, TSH #### [facility] [address] [place] [address] Dr. Get Whitten Lymphocytes/100 WBC (Bld) 21.7 % Normal 20.5-60.0 [facility] Comment on above: Performed By: #### B FACILITIES PLANNER, T7, CMP, TSH #### [facility] [address] [place] [address] Dr. Get Whitten MANUAL DIFF REQ NO Normal The [facility] Comment on above: Performed By: #### B FACILITIES PLANNER, T7, CMP, TSH #### [facility] [address] [place] [address] Dr. Get Whitten MCH (RBC) [Entitic mass] 37.0 pg Critically high 25.9-34.0 [facility] Comment on above: Performed By: #### B FACILITIES PLANNER, T7, CMP, TSH #### [facility] [address] [place] [address] Dr. Get Whitten MCHC (RBC) [Mass/Vol] 34.9 g/dL Normal 29.9-35.2 The [facility] Comment on above: Performed By: #### B FACILITIES PLANNER, T7, CMP, TSH #### [facility] [address] [place] [address] Dr. Get Whitten MCV (RBC) [Entitic vol] 105.9 fL Critically high 80.0-94.0 [facility] Comment on above: Result Comment: 1+ m acrocytosis Performed By: #### B FACILITIES PLANNER, T7, CMP, TSH #### [facility] [address] [place] [address] Dr. Get Whitten MONO # 0.8 103/ul Normal 0.3-0.8 The [facility] Comment on above: Performed By: #### B FACILITIES PLANNER, T7, CMP, TSH #### [facility] [address] [place] [address] Dr. Get Whitten Monocytes/100 WBC (Bld) 7.0 % Normal 1.7-12.0 [facility] Comment on above: Performed By: #### B FACILITIES PLANNER, T7, CMP, TSH #### [facility] [address] [place] [address] Dr. Get Whitten NEUT # 7.5 103/ul Critically high 1.4-6.5 The [facility] Comment on above: Performed By: #### B FACILITIES PLANNER, T7, CMP, TSH #### [facility] [address] [place] [address] Dr. Get Whitten Neutrophils/100 WBC (Bld) 68.3 % Normal 43.0-75.0 The [facility] Comment on above: Performed By: #### B FACILITIES PLANNER, T7, CMP, TSH #### [facility] [address] [place] [address] Dr. Get Whitten Platelet mean volume (Bld) [Entitic vol] 8.6 fL Critically low 9.5-13.5 The [facility] Comment on above: Performed By: #### B FACILITIES PLANNER, T7, CMP, TSH #### [facility] [address] [place] [address] Dr. Get Whitten PLT 235 103/ul Normal 150-450 The [facility] Comment on above: Performed By: #### B FACILITIES PLANNER, T7, CMP, TSH #### [facility] [address] [place] [address] Dr. Get Whitten RBC 3.87 106/ul Critically low 4.70-6.10 The [facility] Comment on above: Performed By: #### B FACILITIES PLANNER, T7, CMP, TSH #### [facility] [address] [place] [address] Dr. Get Whitten WBC 11.0 103/ul Normal 4.0-11.0 [facility] Comment on above: Performed By: #### B FACILITIES PLANNER, T7, CMP, TSH #### [facility] [address] [place] [address] Dr. Get Whitten POINT OF CARE GLUCOSEon 01-13 Glucose [Mass/Vol] 116 mg/dL Critically high 74-106 T [facility] Comment on above: Performed By: #### C MP #### [facility] [address] [place] [address] Dr. Get Whitten PROF CHEM 8 (BAS METB)on Anion gap [Moles/Vol] 14.2 mmol/L Normal [facility] Comment on above: Performed By: #### B FACILITIES PLANNER, T7, CMP, TSH #### [facility] [address] [place] [address] Dr. Get Whitten Calcium [Mass/Vol] 8.7 mg/dL Normal 8.5-10.1 [facility] Comment on above: Performed By: #### B FACILITIES PLANNER, T7, CMP, TSH #### [facility] [address] [place] [address] Dr. Get Whitten Chloride [Moles/Vol] 99 mmol/L Normal 98-107 [facility] Comment on above: Performed By: #### B FACILITIES PLANNER, T7, CMP, TSH #### [facility] [address] [place] [address] Dr. Get Whitten CO2 [Moles/Vol] 25.1 mmol/L Normal 21.0-32.0 [facility] Comment on above: Performed By: #### B FACILITIES PLANNER, T7, CMP, TSH #### [facility] [address] [place] [address] Dr. Get Whitten Creatinine [Mass/Vol] 1.24 mg/dL Normal 0.70-1.30 [facility] Comment on above: Performed By: #### B FACILITIES PLANNER, T7, CMP, TSH #### [facility] [address] [place] [address] Dr. Get Whitten EGFR-AF LEBANESE >60 Normal >=60 [facility] Comment on above: Performed By: #### B FACILITIES PLANNER, T7, CMP, TSH #### [facility] [address] [address] [address] Get Whitten EGFR-NON AF LEBANESE =60 Normal >=60 [facility] Comment on above: Performed By: #### B FACILITIES PLANNER, T7, CMP, TSH #### [facility] [address] [address] [address] Get Whitten Glucose [Mass/Vol] 122 mg/dL Critically high 74-106 T [facility] Comment on above: Performed By: #### B FACILITIES PLANNER, T7, CMP, TSH #### [facility] [address] [address] [address] Get Whitten Potassium [Moles/Vol] 4.3 mmol/L Normal 3.5-5.1 [facility] Comment on above: Performed By: #### B FACILITIES PLANNER, T7, CMP, TSH #### [facility] [address] [address] [address] Get Whitten Sodium [Moles/Vol] 134 mmol/L Critically low 136-145 [facility] Comment on above: Performed By: #### B FACILITIES PLANNER, T7, CMP, TSH #### [facility] [address] [address] [address] Get Whitten Urea nitrogen [Mass/Vol] 7.0 mg/dL Normal 7.0-18.0 [facility] Comment on above: Performed By: #### B FACILITIES PLANNER, T7, CMP, TSH #### [facility] [address] [address] [address] Get Whitten Urea nitrogen/Creatinine [Mass ratio] 5.6 mg/mg Normal [facility] Comment on above: Performed By: #### B FACILITIES PLANNER, T7, CMP, TSH #### [facility] [address] [address] [address] Get Whitten TROPONIN, HIGH SENSITIVITYon 01-24-2022 HSTROP 5.1 pg/mL Normal 4.0-76.1 [facility] Comment on above: Result Comment: CUT- OFF POINTS HAVE BEEN ESTABLISHED BASED ON THE FOURTH UNIVERSAL DEFINITIONS OF MYOCARDIAL INFARCTION. THE UPPER REFERENCE LIMIT (URL) OF TROPONIN, DEFINED THE 99TH PERCENTILE OF cTnI DISTRIBUTION IN A REFERENCE POPULATION, HAS BEEN CONFIRMED THE DECISION THRESHOLD FOR [place] DIAGNOSIS. Performed By: #### B FACILITIES PLANNER, T7, CMP, TSH #### [facility] [address] [place] [address] Dr. Get Whitten XR CHEST 1 Von [...] CESAR PARKER Date: 2022-01-24 11:31 Normal [facility] BNPon 01-09-2022 Natriuretic peptide B (Bld) [Mass/Vol] 83.0 pg/mL Normal <=900.0 The [facility] Comment on above: Performed By: #### C MP, HSTROPN, BNP #### [facility] [address] [place] [address] Dr. Get Whitten CBC AUTO DIFFon 01-09-2022 BASO # 0.0 103/ul Normal 0.0-0.1 [facility] Comment on above: Performed By: #### C MP #### [facility] [address] [place] [address] Dr. Get Whitten Basophils/100 WBC (Bld) 0.4 % Normal 0.2-2.0 [facility] Comment on above: Performed By: #### C MP #### [facility] [address] [place] [address] Dr. Get Whitten EO # 0.0 103/ul Normal 0.0-0.7 [facility] Comment on above: Performed By: #### C MP #### [facility] Laboratory [address] [place] [address] Dr. Get Whitten Eosinophils/100 WBC (Bld) 0.2 % Critically low 0.9-7.0 [facility] Comment on above: Performed By: #### C MP #### [facility] [address] [place] [address] Dr. Get Whitten Erythrocyte distribution width (RBC) [Ratio] 13.1 % Normal 11.0-15.0 [facility] Comment on above: Performed By: #### C MP #### [facility] [address] [place] [address] Dr. Get Whitten Hematocrit (Bld) [Volume fraction] 41.5 % Critically low 42.0-54.0 [facility] Comment on above: Performed By: #### C MP #### [facility] [address] [place] [address] Dr. Get Whitten Hemoglobin (Bld) [Mass/Vol] 14.4 g/dL Normal 14.0-18.0 [facility] Comment on above: Performed By: #### C MP #### [facility] [address] [place] [address] Dr. Get Whitten IG # 0.12 10e3/ul Critically high 0.00-0.03 [facility] Comment on above: Performed By: #### C MP #### [facility] [address] [place] [address] Dr. Get Whitten IG % 1.1 % Critically high 0.0-0.5 [facility] Comment on above: Performed By: #### C MP #### [facility] [address] [place] [address] Dr. Get Whitten LYMPH # 2.3 103/ul Normal 1.2-3.8 [facility] Comment on above: Performed By: #### C MP #### [facility] [address] [place] [address] Dr. Get Whitten Lymphocytes/100 WBC (Bld) 20.9 % Normal 20.5-60.0 [facility] Comment on above: Performed By: #### C MP #### [facility] [address] [place] [address] Dr. Get Whitten MANUAL DIFF REQ NO Normal [facility] Comment on above: Performed By: #### C MP #### [facility] [address] [address] [address] Get Whitten MCH (RBC) [Entitic mass] 37.1 pg Critically high 25.9-34.0 [facility] Comment on above: Performed By: #### C MP #### [facility] [address] [place] [address] Dr. Get Whitten MCHC (RBC) [Mass/Vol] 34.7 g/dL Normal 29.9-35.2 [facility] Comment on above: Performed By: #### C MP #### [facility] [address] [place] [address] Dr. Get Whitten MCV (RBC) [Entitic vol] 107.0 fL Critically high 80.0-94.0 [facility] Comment on above: Result Comment: 1+ m acrocytosis Performed By: #### C MP #### [facility] [address] [place] [address] Dr. Get Whitten MONO # 0.7 103/ul Normal 0.3-0.8 [facility] Comment on above: Performed By: #### C MP #### [facility] [address] [place] [address] Dr. Get Whitten Monocytes/100 WBC (Bld) 6.3 % Normal 1.7-12.0 [facility] Comment on above: Performed By: #### C MP #### [facility] [address] [place] [address] Dr. Get Whitten NEUT # 7.7 103/ul Critically high 1.4-6.5 [facility] Comment on above: Performed By: #### C MP #### [facility] [address] [place] [address] Dr. Get Whitten Neutrophils/100 WBC (Bld) 71.1 % Normal 43.0-75.0 [facility] Comment on above: Performed By: #### C MP #### [facility] [address] [place] [address] Dr. Get Whitten Platelet mean volume (Bld) [Entitic vol] 8.6 fL Critically low 9.5-13.5 [facility] Comment on above: Performed By: #### C MP #### [facility] [address] [place] [address] Dr. Get Whitten PLT 238 103/ul Normal 150-450 [facility] Comment on above: Performed By: #### C MP #### [facility] [address] [address] [address] Get Whitten RBC 3.88 106/ul Critically low 4.70-6.10 [facility] Comment on above: Performed By: #### C MP #### [facility] [address] [address] [address] Get Whitten WBC 10.8 103/ul Normal 4.0-11.0 [facility] Comment on above: Performed By: #### C MP #### [facility] [address] [place] [address] Dr. Get Whitten Covid-19 PCR ([facility])on 12-15 SARS-CoV-2 (COVID-19) RNA ASHLEE+probe Ql (Unsp spec) Not detected Normal NOT DETECTED The [facility] Comment on above: Result Comment: When diagnostic [...] for this test is supported by the Fire Prevention Research Engineer of Health and Human Service's declaration that [...] By: #### C MP, HSTROPN, BNP #### [facility] [address] [place] [address] Dr. Get Whitten PROF 14(COMP METB)on 022 Albumin [Mass/Vol] 4.0 g/dL Normal 3.4-5.0 [facility] Comment on above: Performed By: #### C MP, HSTROPN, BNP #### [facility] [address] [place] [address] Dr. Get Whitten Albumin/Globulin [Mass ratio] 1.0 {ratio} Normal [facility] Comment on above: Performed By: #### C MP, HSTROPN, BNP #### [facility] [address] [place] [address] Dr. Get Whitten ALP [Catalytic activity/Vol] 90 U/L Normal 46-116 [facility] Comment on above: Performed By: #### C MP, HSTROPN, BNP #### [facility] [address] [place] [address] Dr. Get Whitten ALT [Catalytic activity/Vol] 27 U/L Normal 16-63 [facility] Comment on above: Performed By: #### C MP, HSTROPN, BNP #### [facility] [address] [place] [address] Dr. Get Whitten Anion gap [Moles/Vol] 12.6 mmol/L Normal [facility] Comment on above: Performed By: #### C MP, HSTROPN, BNP #### [facility] [address] [place] [address] Dr. Get Whitten AST [Catalytic activity/Vol] 16 U/L Normal 15-37 [facility] Comment on above: Performed By: #### C MP, HSTROPN, BNP #### [facility] [address] [place] [address] Dr. Get Whitten Bilirubin [Mass/Vol] 0.4 mg/dL Normal 0.2-1.0 [facility] Comment on above: Performed By: #### C MP, HSTROPN, BNP #### [facility] [address] [place] [address] Dr. Get Whitten Calcium [Mass/Vol] 8.4 mg/dL Critically low 8.5-10.1 Th e [facility] Comment on above: Performed By: #### C MP, HSTROPN, BNP #### [facility] [address] [place] [address] Dr. Get Whitten Chloride [Moles/Vol] 100 mmol/L Normal 98-107 [facility] Comment on above: Performed By: #### C MP, HSTROPN, BNP #### [facility] [address] [place] [address] Dr. Get Whitten CO2 [Moles/Vol] 25.1 mmol/L Normal 21.0-32.0 [facility] Comment on above: Performed By: #### C MP, HSTROPN, BNP #### [facility] [address] [place] [address] Dr. Get Whitten Creatinine [Mass/Vol] 1.20 mg/dL Normal 0.70-1.30 [facility] Comment on above: Performed By: #### C MP, HSTROPN, BNP #### [facility] [address] [place] [address] Dr. Get Whitten EGFR-AF LEBANESE >60 Normal >=60 [facility] Comment on above: Performed By: #### C MP, HSTROPN, BNP #### [facility] [address] [place] [address] Dr. Get Whitten EGFR-NON AF LEBANESE >60 Normal >=60 [facility] Comment on above: Performed By: #### C MP, HSTROPN, BNP #### [facility] [address] [place] [address] Dr. Get Whitten Globulin (S) [Mass/Vol] 4.0 g/dL Normal [facility] Comment on above: Performed By: #### C MP, HSTROPN, BNP #### [facility] [address] [place] [address] Dr. Get Whitten Glucose [Mass/Vol] 110 mg/dL Critically high 74-106 T [facility] Comment on above: Performed By: #### C MP, HSTROPN, BNP #### [facility] [address] [place] [address] Dr. Get Whitten Potassium [Moles/Vol] 4.7 mmol/L Normal 3.5-5.1 [facility] Comment on above: Performed By: #### C MP, HSTROPN, BNP #### [facility] [address] [place] [address] Dr. Get Whitten Protein [Mass/Vol] 8.0 g/dL Normal 6.4-8.2 [facility] Comment on above: Performed By: #### C MP, HSTROPN, BNP #### [facility] [address] [place] [address] Dr. Get Whitten Sodium [Moles/Vol] 133 mmol/L Critically low 136-145 [facility] Comment on above: Performed By: #### C MP, HSTROPN, BNP #### [facility] [address] [place] [address] Dr. Gte Whitten Urea nitrogen [Mass/Vol] 7.0 mg/dL Normal 7.0-18.0 [facility] Comment on above: Performed By: #### C MP, HSTROPN, BNP #### [facility] [address] [place] [address] Dr. Get Whitten Urea nitrogen/Creatinine [Mass ratio] 5.8 mg/mg Normal [facility] Comment on above: Performed By: #### C MP, HSTROPN, BNP #### [facility] [address] [place] [address] Dr. Get Whitten PROTIMEon 01-09-2022 INR Coag (PPP) [Relative time] {INR} Normal [facility] Comment on above: Performed By: #### C VDTBH #### [facility] [address] [place] [address] Dr. Get Whitten INR GUIDELINES SEE BELOW Normal [facility] Comment on above: Result Comment: JORGE RED INR: 2.0 - 3.0 CONDITIONS NOT LISTED BELOW 2.5 - 3.5 FOR PROSTHETIC HEART VALVE REPLACEMENT 2.5 - 3.5 RECURRENT THROMBOSIS Performed By: #### C VDTBH #### [facility] [address] [address] [address] Get Whitten PT Coag (PPP) [Time] 9.8 s Normal 9.0-11.6 [facility] Comment on above: Performed By: #### C VDTBH #### [facility] [address] [address] [address] Gte Whitten PTTon 01-09-2022 aPTT Coag (Bld) [Time] 28.5 s Normal 22.3-36.2 [facility] Comment on above: Performed By: #### C MP #### [facility] [address] [address] [address] Get Whitten TROPONIN, HIGH SENSITIVITYon 01-09-2022 HSTROP 4.1 pg/mL Normal 4.0-76.1 [facility] Comment on above: Result Comment: CUT- OFF POINTS HAVE BEEN ESTABLISHED BASED ON THE FOURTH UNIVERSAL DEFINITIONS OF MYOCARDIAL INFARCTION. THE UPPER REFERENCE LIMIT (URL) OF TROPONIN, DEFINED THE 99TH PERCENTILE OF cTnI DISTRIBUTION IN A REFERENCE POPULATION, HAS BEEN CONFIRMED THE DECISION THRESHOLD FOR IA DIAGNOSIS. Performed By: #### C MP, HSTROPN, BNP #### [facility] Laboratory [address] [place] [address] Dr. 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, left eye FINAL DX: PRINCIPAL: H26.492 Other secondary cataract, left eye SECONDARY: PYMT PROC APC STAT DESCRIPTION DOCTOR NAME DATE [id number] 5481 T Discission of secondary Darnell Rick [...] [place] Date Saved: 12/18/2018 10:51 am Normal [facility] Encounters Encounter Date Encounter Type Care Provider Facility Start: 07-17-2023 End: 07-17-2023 ambulatory [facility] Start: 05-28-2023 Evaluation and management of inpatient [facility] Start: 05-28-2023 [facility] Start: 05-28-2023 End: 05-28-2023 Evaluation and management of inpatient [facility] Start: 05-18-2023 End: 05-18-2023 ambulatory [facility] Start: 04-24-2023 End: 04-25-2023 Evaluation and management of inpatient LIDIA PASCUAL [facility] Start: 04-21-2023 Evaluation and management of inpatient KVNG RAYMUNDO [facility] Start: 04-20-2023 End: 04-24-2023 Evaluation and management of inpatient ION SIMS [facility] Start: 04-20-2023 Emergency department patient visit [facility] Start: 04-20-2023 End: 04-20-2023 Emergency department patient visit [facility] Start: 01-08-2023 End: 01-09-2023 ambulatory Hernandez Wylie [...] Category Payer Private Health Insurance 1965 Unknown [id number] 2.16.84 [id number] 1965 Unknown [id number] .16.84 [id number] 1965 Unknown [id number] 2.16.84 [id number] 1965 Unknown [id number] 2.16.84 [id number] 1965 Unknown [id number] 2.16.84 0.1.210803.3.579.2.593 1965 Unknown [id number] 2.16.84 0.1.406594.3.579.2.593 1965 Unknown [id number] 2.16.84 0.1.496984.3.579.2.593 1965 Unknown [id number] 2.16.84 0.1.637561.3.579.2.593 1965 Unknown [id number] 2.16.84 0.1.307281.3.579.2.593 1965 Unknown [id number] 2.16.84 0.1.314132.3.579.2.593 1965 Unknown [id number] 2.16.84 0.1.347727.3.579.2.593 1965 Unknown [id number] 2.16.84 0.1.954428.3.579.2.593 1965 Unknown [id number] 2.16.84 0.1.166354.3.579.2.593 1965 Unknown [id number] 2.16.84 0.1.973431.3.579.2.593 1965 Unknown [id number] 2.16.84 0.1.560888.3.579.2.593 1965 Unknown [id number] 2.16. 840.1.129327.3.579.2.196 1965 Unknown [id number] 2.16. [id number] 1959 Medicare [id number] 1959 Private Health Insurance [id number] 1959 Self-pay [id number] Clinical Notes 10-24-2022 to 07-17-2023 Note Date & Type Note Facility 07-17-2023 Note Patient here for [facility]. C/o B/L LE edema, R>L. [...] All other systems reviewed and are negative. [facility] 07-17-2023 Note [place] Electrophysiology Consult Note Reason for visit: hospital follow up, syncope 07/17/22: Here for hospital follow up Was admited again for syncope at [facility] 05/27 Had stress test which was [...] of PFO He was just seen at [facility] for syncope / CP, he was [...] Last Year: No Allergies: Allergies Allergen Reactions [place] Anaphylaxis Penicillins Angioedema Weight: 101kg Visit Vitals [...] 0.5 mg by mouth in the morning. khspjshxthb-wsrwbunjg-ugnaocye (Trelegy Ellipta) 100-62.5-25 mcg blister with device [...] mg) by mouth (more content not included)... [facility] 05-28-2023 Note Hospital Medicine Discharge Summary Final [...] CMP, Mag, phosph, EKG and telemetry. Admiting [facility] pt to the stepdown unit and consult [facility] cardiology team. We will follow-up on [...] 100-62.5-25 mcg blister with device Generic drug: tqylmlqqxgn-mhwntohpd-ldqybgbs STOP taking these medications hydrocortisone 10 mg [...] Hammonds MD Hospital Medicine 05/28/2023 2:37 PM [facility] 05-28-2023 Note 05/28/23 1009 Admission Assessment Questions [...] Discharge? Yes Does the patient have a welfare case worker assigned to them through their insurance? Yes [...] link and activate MyChart? MyChart already active [facility] 05-28-2023 Note . Hospital Medicine History and Physical 05/27/2023 11:38 PM THE HOSPITALIST TEAM PREFERS TO USE [employer] CHAT FOR COMMUNICATION 7AM-7PM. IF I DO NOT RESPOND WITHIN 15 MINUTES, PLEASE PAGE ME/CALL THROUGH THE MANAGER OUTPATIENT. FROM 7PM-7AM, PLEASE PAGE [phone](COVR) Chief Complaint Syncope. History of Present Illness [...] CMP, Mag, phosph, EKG and telemetry. Admiting [facility] pt to the stepdown unit and consult [facility] cardiology team. We will follow-up on [...] Date Noted NSTEMI (non-ST elevated myocardial infarction) ([facility]) 05/27/2023 Adrenal insufficiency ([facility]) 04/24/2023 Acute gout 04/20/2023 Hypertension 04/20/2023 Allergic [...] this hospital stay by a member of [facility] Medicine. Past Medical History No past medical history on file. Past Surgical History No past surgical history on file. Social History Social History Socioeconomic History Marital status: (more content not included)... [facility] 05-18-2023 Note [place] Electrophysiology Consult Note Reason for visit: hospital follow up HPI: Rehan Poole is a 58 y.o. year old with past medical history of hypertension, migraine headaches, seizure, neuropathy, history of PFO He was just seen at [facility] for syncope / CP, he was [...] Last Year: No Allergies: Allergies Allergen Reactions [place] Anaphylaxis Penicillins Angioedema Weight: 104kg Visit Vitals [...] 0.5 mg by mouth in the morning. eqrmlssrbwa-mkcknmdua-iwtmlfxd (Trelegy Ellipta) 100-62.5-25 mcg blister with device [...] normal curvature, no (more content not included)... [facility] 04-24-2023 Note Patient given discha rge instructions and education provided regarding meds and appts. EKG called to educate patient about cardiac event monitor instructions. Patient waiting for imeds to deliver. [facility] notified of patient discharge. [facility] 04-23-2023 Note Hospital Medicine Daily Progress Note - 04/23/2023 11:22 AM; Room: [facility] Admission: 04/20/2023 4:06 PM; Length of stay: 2 days THE HOSPITALIST TEAM PREFERS TO USE [employer] CHAT FOR COMMUNICATION 7AM-7PM. IF I DO NOT RESPOND WITHIN 15 MINUTES, PLEASE PAGE ME/CALL THROUGH THE MANAGER OUTPATIENT. FROM 7PM-7AM, PLEASE PAGE [phone](COVR) Code Status: Full Code Discharge Destination: home [...] CORTISOL 8.3 04/22/2023 No results found for: [id number], IRON, TIBC, C3, C4, JADA, CANCA, ASO, PSA, CEA, CA125, CA199, AFP, CA153 Imaging Transthoracic echo (TTE) complete 1 1 [facility] [address] [place] [address] [phone] (fax) Echocardiogram-[facility] Name: REHAN (more content not included)... [facility] 04-22-2023 Note Hospital Medicine Daily Progress Note - 04/22/2023 3:22 PM; Room: 3186/3186-01 Admission: 04/20/2023 4:06 PM; Length of stay: 1 days THE HOSPITALIST TEAM PREFERS TO USE [employer] CHAT FOR COMMUNICATION 7AM-7PM. IF I DO NOT RESPOND WITHIN 15 MINUTES, PLEASE PAGE ME/CALL THROUGH THE MANAGER OUTPATIENT. FROM 7PM-7AM, PLEASE PAGE [phone](COVR) Code Status: Full Code Discharge Destination: home [...] unable to tolerate treadmill stress test. - [facility] does not provide inpatient endocrinology consultation. Flo [facility] and Cande Gomez were called to transfer patient for inpatient endocrinology evaluation. They both reported they do not provide that service. I called [facility] to transfer patient and they reported that they are tight on beds and would be unable to except transfer, although they do have inpatient endocrinology consultation. They recommended they speak with their on-call glazier structural glass at [facility] ([phone]) for teleconsultation. I spoke with Dr. Solis [...] oral, Daily topiram (more content not included)... [facility] 04-21-2023 Note Hospital Medicine Daily Progress Note - 04/21/2023 4:00 PM; Room: [facility] Admission: 04/20/2023 4:06 PM; Length of stay: 0 days THE HOSPITALIST TEAM PREFERS TO USE [employer] CHAT FOR COMMUNICATION 7AM-7PM. IF I DO NOT RESPOND WITHIN 15 MINUTES, PLEASE PAGE ME/CALL THROUGH THE MANAGER OUTPATIENT. FROM 7PM-7AM, PLEASE PAGE [phone](COVR) Code Status: Full Code Discharge Destination: home [...] 1.8 (L) 04/21/2023 No results found for: [id number], IRON, TIBC, C3, C4, JADA, CANCA, ASO, PSA, CEA, CA125, CA199, AFP, CA153 Imaging ECG 12 lead Normal sinus rhythm Low voltage QRS ST & T wave (more content not included)... [facility] 04-21-2023 Note ---- Attestation signed by Thong [...] Value Ventricular Rate [address] Interval 132 QRS DURATION 86 QT Interval 430 QTC CALCULATION(BAZETT) 425 P [place] 43 R-[place] -12 T Wave [place] 73 Impression Sinus bradycardia Low voltage QRS [...] questions. Helen Calixto PGY-2, Internal medicine resident [facility] 04-20-2023 Note Hospital Medicine History and Physical 04/20/2023 7:28 PM THE HOSPITALIST TEAM PREFERS TO USE [employer] FOR COMMUNICATION 7AM-7PM. IF I DO NOT RESPOND WITHIN 15 MINUTES, PLEASE PAGE ME/CALL THROUGH THE MANAGER OUTPATIENT. FROM 7PM-7AM, PLEASE PAGE [phone](COVR) Chief Complaint No chief complaint on file. History of Present Illness Rehan Poole is an 58 y.o. male who came from home with past medical history of hypertension, migraine headaches, seizure, neuropathy, history of PFO presented to [facility] as a transfer from [facility] ER because of new onset of [place] [...] II arrhythmia and patient was transferred to [facility] for possible pacemaker placement. Here, repeated [...] it is exertional. Blood work and the [facility] ER showed hyponatremia with a sodium 127, [...] Diagnosis Date Noted Hyponatremia 04/20/2023 COPD exacerbation ([facility]) 04/20/2023 Acute gout 04/20/2023 Hypertension 04/20/2023 Allergic [...] will discontinue azithromycin (more content not included)... [facility] 11-27-2022 Note PROCEDURE: XR ANKLE LT 2V HISTORY: Unspecified fall , left ankle pain COMPARISON: None. FINDINGS: BONES:No fracture, acute abnormality, or significant arthropathy. SOFT TISSUES:Mild anterior lateral soft tissue swelling. EFFUSION:None visible. OTHER: Negative. IMPRESSION: 1. No acute bone abnormality. Electronically authenticated by: SHEN SOSA Date: 2022-11-27 11:27 [facility] 10-24-2022 Note PROCEDURE: XR HIP LT 2 3V W PELVIS HISTORY: Idiopathic osteoarthritis ; acute left hip pain after falling COMPARISON: None. FINDINGS: BONES:No fracture, acute abnormality, or significant arthropathy. SOFT TISSUES:No visible soft tissue swelling. EFFUSION:None visible. OTHER: Negative. IMPRESSION: 1. No acute bone abnormality or significant degenerative joint disease. Electronically authenticated by: SHEN SOSA Date: 2022-10-24 09:51 [facility] Summary Purpose Family History No Family History [...] section and content) DATE CREATED AUTHOR 02/15/2019 [facility] DATE CREATED AUTHOR AUTHOR'S ORGANIZ ATION 12/22/2022 [facility] DATE CREATED AUTHOR AUTHOR'S ORGANIZ ATION 03/06/2023 [facility] DATE CREATED AUTHOR AUTHOR'S ORGANIZ ATION 08/11/2023 [facility] FOR RECORDS PERTAINING TO PATIENTS WHO ARE [...] BE BASED ON THE PRIMARY CLINICAL RECORDS. [facility] [employer] [facility]. provides no warranty or guarantee of the accuracy or completeness of information in this document.
--- NOTE | 2023-09-16 18:56 | XR_ITS ---
The [address] [address] Patient Name: ELENA TREJO MRN: [id number] date: 1965 Sex: M Assigned Patient Location: ER Current Patient Location: ER Accession/Order Number: [id number] Exam Date: 09/16/2023 19:11 Report Date: 09/16/2023 20:11 At the request of: SHIVA NOVAK Procedure: XR chest 1V EXAM: XR chest 1V HISTORY: Fatigue COMPARISON: Chest x-ray 09/12/2023 TECHNIQUE: Single AP radiograph of the chest FINDINGS: No pneumothorax, pleural effusion or consolidation. Normal heart size. No acute osseous abnormality. XR/XR chest 1V IMPRESSION: No acute cardiopulmonary process. Electronically authenticated by: ALONSO ROSAS Date: 09/16/2023 20:11
[2023-09-16 19:06] LABS: Basophils Percent Auto 0.2 % (0.2-2.0); Eosinophils Absolute Auto 0.1 10^3/uL (0.0-0.7); Eosinophils Percent Auto 1.4 % (0.9-7.0); Hematocrit 42.4 % (42.0-54.0); Hemoglobin 13.9 g/dL (14.0-18.0); Immature Granulocytes Abs Auto 0.06 10^3/uL (0.00-0.03); Immature Granulocytes Pct Auto 0.6 % (0.0-0.5); Lymphocytes Percent Auto 30.3 % (20.5-60.0); Mean Corpuscular HGB Conc 32.8 g/dL (29.9-35.2); Mean Corpuscular Hemoglobin 30.9 pg (25.9-34.0); Mean Corpuscular Volume 94.2 fL (80.0-94.0); Mean Platelet Volume 8.8 fL (9.5-13.5); Monocytes Absolute Auto 0.4 10^3/uL (0.3-0.8); Monocytes Percent Auto 4.5 % (1.7-12.0); Neutrophils Absolute Auto 6.1 10^3/uL (1.4-6.5); Platelet Count 268 10^3/uL (150-450); Red Cell Distribution Width 17.2 % (11.0-15.0); White Blood Count 9.7 10^3/uL (4.0-11.0)
[2023-09-16] MEDS: 0.9 % SODIUM CHLORIDE 1,000 ML 999 ML IV (19:08)
--- NOTE | 2023-09-16 19:11 | ECG_ITS ---
The [facility] Test Date: 2023-09-16 Pat Name: ELENA TREJO Department: Room: - Gender: Male Curriculum Assistant: : 1965 Requested By: [id number] Order Number: [id number] Reading MD: PEE LAKHANI Measurements Intervals [place] Rate: 71 P: 74 UT: 148 QRS: 67 QRSD: 94 T: 57 QT: 376 QTc: 399 Interpretive Statements 1100 Sinus rhythm 8102 Low QRS voltage in chest leads 9120 atypical ECG Compared to ECG 09/16/2023 18:52:22 No significant changes Electronically Signed On 09-18-2023 5:57:22 EST by PEE LAKHANI
[2023-09-16 19:17] LABS: Influenza Virus A Antigen Negative; Influenza Virus B Antigen Negative; Internal Control Within Normal Limits
[2023-09-16 19:29] LABS: Alanine Aminotransferase 15 U/L (16-63); Albumin Globulin Ratio 0.9; Albumin Level 3.7 g/dL (3.4-5.0); Alkaline Phosphatase 74 U/L (46-116); Anion Gap 17.3; Aspartate Amino Transferase 16 U/L (15-37); BUN Creatinine Ratio 7.4; Bilirubin Total 0.3 mg/dL (0.2-1.0); Calcium 8.7 mg/dL (8.5-10.1); Carbon Dioxide 22.4 mmol/L (21.0-32.0); Chloride 97 mmol/L (98-107); Estimated GFR (African America >60 (>=60); Estimated GFR (Non-African Ame >60 (>=60); Globulin 4.3 g/dL; Glucose 120 mg/dL (74-106); Potassium 3.7 mmol/L (3.5-5.1); Sodium 133 mmol/L (136-145); Thyroid Stimulating Hormone 54.251 uIU/mL (0.358-3.740); Troponin I High Sensitivity <4.0 pg/mL (4.0-76.1)
[2023-09-16 20:01] LABS: Bilirubin Urine NEGATIVE (NEGATIVE); Blood Urine NEGATIVE (NEGATIVE); Clarity Urine CLEAR (CLEAR); Color Urine LT. YELLOW (YELLOW); Glucose Urine UA NEGATIVE (NEGATIVE); Ketones Urine NEGATIVE (NEGATIVE); Leukocyte Esterase Urine NEGATIVE (NEGATIVE); Nitrite Urine NEGATIVE (NEGATIVE); Protein Urine NEGATIVE (NEG/TRACE); Specific Gravity Urine <=1.005 (1.005-1.025); Urobilinogen Urine 0.2 EU/dL (0.2-1.0); pH Urine 6.5 (5.0-9.0)
[2023-09-16 20:02] LABS: Bacteria Urine NONE SEEN #/HPF (NONE SEEN); Cast Seen? NONE SEEN #/LPF (NONE SEEN); Crystals Seen? None Seen #/HPF (None Seen); Mucus Urine NONE SEEN (NONE SEEN); RBC Urine NONE SEEN #/HPF (0-2); Squamous Epithelial Cell Urine NONE SEEN #/LPF (NONE/RARE); WBC Urine NONE SEEN #/HPF (NONE SEEN)
[2023-09-16 20:15] LABS: SARS-CoV-2 Ag NEGATIVE (NEGATIVE)
== END 2023-09-16 21:00 | disposition home or self-care (01) ==
PROVIDERS: Emergency Medicine Emergency Medical Services; Emergency Provider Emergency Medicine; PCP Family Medicine
DX: R53.1 Weakness (principal); E03.9 Hypothyroidism, unspecified; Z20.822 Contact with and (suspected) exposure to COVID-19; Z79.899 Other long term (current) drug therapy; Z79.82 Long term (current) use of aspirin; I10 Essential (primary) hypertension; E78.5 Hyperlipidemia, unspecified; N40.0 Benign prostatic hyperplasia without lower urinary tract symptoms; K21.9 Gastro-esophageal reflux disease without esophagitis; J43.9 Emphysema, unspecified; Z98.890 Other specified postprocedural states; Z87.891 Personal history of nicotine dependence
CPT/HCPCS: 36415; 71045; 80053; 81001; 84443; 84484; 85025; 87804; 87811; 93005; 99285

== ENCOUNTER 2024-12-01 10:05 | Emergency (ER) | payer MEDICARE, SELFPAY ==
[2024-12-01 10:07] VITALS: BP 182/96; PULSE 77; TEMP 36.4; O2SAT 98; BMI 28.2
--- NOTE | 2024-12-01 10:14 | PC.NURSE ---
Pt reports to ER due to pain in his right groin that travels down the leg and new onset swelling Pt brought back to room in a wheelchar pt states he can transfer himself to bed but will yell to which he did - pt needed assistance standing, had full body shaking and crying during movement Pt states this pain has been like this for 2 weeks but the swelling in the lower part of the leg is new Pt denies taking pain medication today Pt states he pulled a muscle in his groin 1 year ago and this feels similar Pt has pitting edema in lower right calf throughout his foot Pt states pain is 10/10 and grimaces with any touch
--- OUTSIDE RECORDS SUMMARY | 2024-12-01 10:16 | XMS_ITS | CCD ---
Author Organization [facility] CliniSyin Care Team Providers Care Corporate Event Planner Name Role Phone LESVIA ., DR GLASGOW Attending Unavailable HOY ., DR GLASGOW Primary Care Unavailable HOY ., DR GLASGOW Admitting Unavailable PAY ., DR SAMUEL Admitting Unavailable PAY ., DR SAMUEL Attending Unavailable HOY ., DR GLAGSOW Primary Care Unavailable HOY ., DR GLASGOW Consulting Unavailable GRECHNY ., GISSELLE MEZA Consulting UnavailJULIO CESAR Guadarrama Consulting Unavailable HOY ., DR GLASGOW Attending Unavailable HOY ., DR GLASGOW Primary Care Unavailable DANNA, DR ANA Vernon Consulting Unavailable HOY ., DR GLASGOW Admshobha Unavailable HOY ., DR GLASGOW Consulting Unavailable JANKI STEEL Consulting Unavailable HOY ., DR GLASGOW Primary Care Unavailable SCARLET, DR SHIVA Love Consulting Unavailabl e SCARLET, DR SHIVA Love Attending Unavailabl e SCARLET, DR SHIVA Love Admitting Unavailabl e JULIO CESAR PARKER Consulting Unavailable PAY ., DR SAMUEL Consulting Unavailable PAY ., DR SAMUEL Attending Unavailable HOY ., DR GLASGOW Primary Care Unavailable PAY ., DR SAMUEL Admitting Unavailable HOY ., DR GLASGOW Primary Care Unavailable SCARLET, DR SHIVA Love Consulting Unavailabl e SCARLET, DR SHIVA Love Attending Unavailabl e SCARLET, [...] Consulting Unavailable JOHN ., LISSETTE Consulting Unavailable Gishyanneitis , Hernandez Thomas Attending Unavailable Dejan CARD, Hernandez Thomas Attending Unavailable ELMA, BARBARA Referring Unavailable MARITZA, JYOTI Referring Unavailable MARITZA, JYOTI Referring Unavailable MARITZA, JYOTI Referring Unavailable MARITZA, JYOTI Referring Unavailable YOUNGELISABETH Attending Unavailable KORINA, BETTY Attending Unavailable ELMA, BARBARA Referring Unavailable MARITZA, JYOTI Referring Unavailable ELMA, BARBARA Referring Unavailable MARITZA, JYOTI Referring Unavailable ELMA, BARBARA Referring Unavailable ELMA, BARBARA Referring Unavailable MARITAZ, JYOTI Referring Unavailable MARITZA, JYOTI Referring Unavailable Allergies Allergy Classification Reported Allergen(s) Allergy Type Date of Onset Reaction(s) Facility (2 sources) Penicillins; Translations: [PENICILLINS] Drug allergy (disorder) 05-30-2015 [facility] Repository (2 sources) strawberry allergenic extract; Translations: [STRAWBERRY] Drug Allergy 05-13-2016 [facility] Repository Problems Active Problems Problem Classification Problem Date Documented Date Episodic/Chronic Acute and unspecified renal failure (1 source) Acute kidney failure, unspecified; Translations: [ACUTE KIDNEY FAILURE UNSPECIFIED] Onset: 12-04-2022 Episodic Alcohol-related disorders (1 source) Alcohol dependence, uncomplicated; Translations: [ALCOHOL DEPENDENCE UNCOMPLICATED] Onset: 10-31-2022 Chronic Chronic obstructive pulmonary disease and bronchiectasis (1 [...] Onset: 04-18-2022 Chronic Disorders of lipid metabolism (4 sources) Pure hypercholesterolemia, unspecified; Translations: [Mixed hyperlipidemia] Onset: 04-20-2023 Chronic E Codes: Fall (1 source) Unspecified fall, initial encounter; Translations: [UNSPECIFIED FALL INITIAL ENCOUNTER] Onset: 12-04-2022 Episodic Epilepsy; convulsions (1 source) Epilepsy, unspecified, not intractable, without status epilepticus; Translations: [EPILEPSY UNS NOT INTRACT W/O SE] Onset: 12-04-2022 Chronic Essential hypertension (3 sources) Essential (primary) hypertension; Translations: [ESSENTIAL PRIMARY HYPERTENSION] Onset: 12-04-2022 Chronic Headache; including migraine (1 source) Headache; including migraine; Translations: [HEADACHE UNSPECIFIED] Onset: 04-05-2022 Hypertension with complications and secondary hypertension (1 source) Hypertensive heart disease with heart failure; Translations: [HTN HEART DISEASE W/HEART FAIL] Onset: 04-19-2022 Chronic Intracranial injury (1 source) Other specified intracranial injury with loss of consciousness of 30 minutes or less, initial encounter; Translations: [OTH SPECIFIED ICI LOC 30 MIN/< INIT] Onset: 12-04-2022 Episodic Malaise and fatigue (4 sources) Weakness; Translations: [WEAKNESS] Onset: 04-18-2022 Episodic Menopausal disorders (1 source) Hormone replacement therapy; Translations: [HORMONE REPLACEMENT THERAPY] Onset: 05-22-2023 Episodic Osteoarthritis (1 source) Unilateral primary osteoarthritis, left hip; Translations: [UNI PRIM OSTEOARTHRITIS LT HIP] Onset: 10-29-2022 Chronic Other aftercare (1 source) Other alf (current) drug therapy; Translations: [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] Onset: 12-04-2022 Episodic Other connective tissue disease (1 source) Arthrodesis status; Translations: [ARTHRODESIS STATUS] Onset: 12-04-2022 Episodic Other lower respiratory disease (2 sources) Other forms of dyspnea; Translations: [Other forms of dyspnea] Onset: 10-01-2024 Episodic Other nervous system disorders (1 source) Other [...] CIGARETTES UNCOMP] Onset: 10-31-2022 Chronic Thyroid disorders (2 sources) Hypothyroidism, unspecified; Translations: [HYPOTHYROIDISM UNSPECIFIED] Onset: [...] of diseases classified elsewhere] Onset: 04-05-2022 Episodic Cardiac dysrhythmias (3 sources) Bradycardia, unspecified; Translations: [Palpitations] Onset: 12-04-2022 Episodic Chronic obstructive pulmonary disease and bronchiectasis (2 sources) Bronchitis, not specified as acute or chronic; Translations: [BRONCHITIS NOT SPEC ACUTE/CHRON] Onset: 04-05-2022 Episodic Deficiency and other anemia (1 source) Anemia, unspecified; Translations: [ANEMIA UNSPECIFIED] Onset: 04-19-2022 Episodic Fluid and electrolyte disorders (2 sources) Hypo-osmolality and hyponatremia; Translations: [Dehydration] Onset: 04-18-2022 Episodic Mycoses (1 source) Other specified mycoses; Translations: [OTHER SPECIFIED MYCOSES] Onset: 04-05-2022 Episodic Nonspecific chest pain (7 sources) Chest pain, unspecified; Translations: [Other chest pain] Onset: 03-27-2022 Episodic Other connective tissue disease (1 source) [...] and collapse; Translations: [Syncope and collapse] Onset: 09-24-2023 Episodic Unclassified (1 source) LOW BACK PAIN, UNSPECIFIED; Translations: [LOW BACK PAIN, UNSPECIFIED] Onset: 10-27-2022 Unclassified (1 source) COUGH, UNSPECIFIED; Translations: [COUGH, UNSPECIFIED] Onset: 03-23-2022 Unclassified (1 source) CONTACT W/AND (SUSP) EXPOS COVID-19; Translations: [CONTACT W/AND (SUSP) EXPOS COVID-19] Onset: 03-17-2022 Results Test Name Value Interpretation Reference Range Facility Office Visiton 10-01-2024 Follow-up visit [id number] Rehan Poole 1965 M Date Provider Department Center 10/01/2024 [id number] DAO [facility] No family history on file Level of Service:84694 [place] OFFICE/OUTPATIENT ESTABLISHED MOD MDM 30 MIN Reason for Visit and Comments: Chest Pain [697030] - Intermittent, describes it as sharp at times. Hypertension [982795] Hyperlipidemia [182] - He stopped taking atorvastatin for no reason in particular. Abnormal ECG [293] - Has loop recorder, denies palpitations and lightheadedness/synco pe. Shortness of Breath [643631] - Gets SOB w/wo exertion. Normal [facility] Office Visiton 03-28-2024 Follow-up visit [id number] Rehan Poole 1965 M Date Provider Department Center 03/28/2024 [id number] RICH [facility] No family history on file Level of Service:60231 [place] OFFICE/OUTPATIENT ESTABLISHED LOW MDM 20 MIN Normal [facility] CBC AUTO DIFFon 11-28-2022 BASO # 0.0 103/ul Normal 0.0-0.1 [facility] Comment on above: Performed By: #### B CLEARANCE CUTTER, T7, CMP, TSH #### [facility] [address] [place] [address] Dr. Get Whitten Basophils/100 WBC (Bld) 0.4 % Normal 0.2-2.0 [facility] Comment on above: Performed By: #### B CLEARANCE CUTTER, T7, CMP, TSH #### [facility] [address] [place] [address] Dr. Get Whitten EO # 0.1 103/ul Normal 0.0-0.7 [facility] Comment on above: Performed By: #### B CLEARANCE CUTTER, T7, CMP, TSH #### [facility] [address] [place] [address] Dr. Get Whitten Eosinophils/100 WBC (Bld) 0.5 % Critically low 0.9-7.0 [facility] Comment on above: Performed By: #### B CLEARANCE CUTTER, T7, CMP, TSH #### [facility] [address] [place] [address] Dr. Get Whitten Erythrocyte distribution width (RBC) [Ratio] 18.6 % Critically high 11.0-15.0 [facility] Comment on above: Performed By: #### B CLEARANCE CUTTER, T7, CMP, TSH #### [facility] [address] [place] [address] Dr. Get Whitten Hematocrit (Bld) [Volume fraction] 33.3 % Critically low 42.0-54.0 [facility] Comment on above: Performed By: #### B CLEARANCE CUTTER, T7, CMP, TSH #### [facility] [address] [place] [address] Dr. Get Whitten Hemoglobin (Bld) [Mass/Vol] 11.1 g/dL Critically low 14.0-18.0 [facility] Comment on above: Performed By: #### B CLEARANCE CUTTER, T7, CMP, TSH #### [facility] [address] [place] [address] Dr. Get Whitten IG # 0.30 10e3/ul Critically high 0.00-0.03 [facility] Comment on above: Performed By: #### B CLEARANCE CUTTER, T7, CMP, TSH #### [facility] [address] [address] [address] Get Whitten IG % 3.3 % Critically high 0.0-0.5 [facility] Comment on above: Performed By: #### B CLEARANCE CUTTER, T7, CMP, TSH #### [facility] [address] [address] [address] Get Whitten LYMPH # 3.0 103/ul Normal 1.2-3.8 [facility] Comment on above: Performed By: #### B CLEARANCE CUTTER, T7, CMP, TSH #### [facility] [address] [place] [address] Dr. Get Whitten Lymphocytes/100 WBC (Bld) 32.7 % Normal 20.5-60.0 [facility] Comment on above: Performed By: #### B CLEARANCE CUTTER, T7, CMP, TSH #### [facility] [address] [place] [address] Dr. Get Whitten MANUAL DIFF REQ NO Normal [facility] Comment on above: Performed By: #### B CLEARANCE CUTTER, T7, CMP, TSH #### [facility] [address] [place] [address] Dr. Get Whitten MCH (RBC) [Entitic mass] 34.8 pg Critically high 25.9-34.0 [facility] Comment on above: Performed By: #### B CLEARANCE CUTTER, T7, CMP, TSH #### [facility] [address] [place] [address] Dr. Get Whitten MCHC (RBC) [Mass/Vol] 33.3 g/dL Normal 29.9-35.2 [facility] Comment on above: Performed By: #### B CLEARANCE CUTTER, T7, CMP, TSH #### [facility] [address] [address] [address] Get Whitten MCV (RBC) [Entitic vol] 104.4 fL Critically high 80.0-94.0 [facility] Comment on above: Performed By: #### B CLEARANCE CUTTER, T7, CMP, TSH #### [facility] [address] [place] [address] Dr. Get Whitten MONO # 0.4 103/ul Normal 0.3-0.8 [facility] Comment on above: Performed By: #### B CLEARANCE CUTTER, T7, CMP, TSH #### [facility] [address] [place] [address] Dr. Get Whitten Monocytes/100 WBC (Bld) 4.2 % Normal 1.7-12.0 [facility] Comment on above: Performed By: #### B CLEARANCE CUTTER, T7, CMP, TSH #### [facility] [address] [place] [address] Dr. Get Whitten NEUT # 5.4 103/ul Normal 1.4-6.5 [facility] Comment on above: Performed By: #### B CLEARANCE CUTTER, T7, CMP, TSH #### [facility] [address] [place] [address] Dr. Get Whitten Neutrophils/100 WBC (Bld) 58.9 % Normal 43.0-75.0 [facility] Comment on above: Performed By: #### B CLEARANCE CUTTER, T7, CMP, TSH #### [facility] [address] [place] [address] Dr. Get Whitten Platelet mean volume (Bld) [Entitic vol] 9.5 fL Normal 9.5-13.5 [facility] Comment on above: Performed By: #### B CLEARANCE CUTTER, T7, CMP, TSH #### [facility] [address] [place] [address] Dr. Get Whitten PLT 187 103/ul Normal 150-450 [facility] Comment on above: Performed By: #### B CLEARANCE CUTTER, T7, CMP, TSH #### [facility] [address] [place] [address] Dr. Get Whitten RBC 3.19 106/ul Critically low 4.70-6.10 [facility] Comment on above: Performed By: #### B CLEARANCE CUTTER, T7, CMP, TSH #### [facility] [address] [place] [address] Dr. Get Whitten WBC 9.1 103/ul Normal 4.0-11.0 [facility] Comment on above: Performed By: #### B CLEARANCE CUTTER, T7, CMP, TSH #### [facility] [address] [address] [address] Get Whitten PROF 14(COMP METB)on 023 Albumin [Mass/Vol] 3.9 g/dL Normal 3.4-5.0 [facility] Comment on above: Performed By: #### C MP #### [facility] [address] [address] [address] Get Whitten Albumin/Globulin [Mass ratio] 1.1 {ratio} Normal [facility] Comment on above: Performed By: #### C MP #### [facility] [address] [address] [address] Get Whitten ALP [Catalytic activity/Vol] 34 U/L Critically low 46-116 [facility] Comment on above: Performed By: #### C MP #### [facility] [address] [place] [address] Dr. Get Whitten ALT [Catalytic activity/Vol] 21 U/L Normal 16-63 [facility] Comment on above: Performed By: #### C MP #### [facility] [address] [address] [address] Get Whitten Anion gap [Moles/Vol] 17.7 mmol/L Normal [facility] Comment on above: Performed By: #### C MP #### [facility] [address] [place] [address] Dr. Get Whitten AST [Catalytic activity/Vol] 15 U/L Normal 15-37 [facility] Comment on above: Performed By: #### C MP #### [facility] [address] [address] [address] Get Whitten Bilirubin [Mass/Vol] 0.3 mg/dL Normal 0.2-1.0 [facility] Comment on above: Performed By: #### C MP #### [facility] [address] [place] [address] Dr. Get Whitten Calcium [Mass/Vol] 8.7 mg/dL Normal 8.5-10.[address] [facility] Comment on above: Performed By: #### C MP #### [facility] [address] [address] [address] Get Whitten Chloride [Moles/Vol] 99 mmol/L Normal 98-107 [facility] Comment on above: Performed By: #### C MP #### [facility] [address] [address] [address] Get Whitten CO2 [Moles/Vol] 21.8 mmol/L Normal 21.0-32.0 [facility] Comment on above: Performed By: #### C MP #### [facility] [address] [address] [address] Get Whitten Creatinine [Mass/Vol] 1.69 mg/dL Critically high 0.70-1.30 [facility] Comment on above: Performed By: #### C MP #### [facility] [address] [address] [address] Get Whitten EGFR-AF NAMIBIAN 51 mL/min/1.73m2 Critically low >=60 [facility] Comment on above: Performed By: #### C MP #### [facility] [address] [address] [address] Get Whitten EGFR-NON AF NAMIBIAN 42 mL/min/1.73m2 Critically low >=60 [facility] Comment on above: Performed By: #### C MP #### [facility] [address] [address] [address] Get Whitten Globulin (S) [Mass/Vol] 3.6 g/dL Normal [facility] Comment on above: Performed By: #### C MP #### [facility] [address] [address] [address] Get Whitten Glucose [Mass/Vol] 96 mg/dL Normal 74-106 [facility] Comment on above: Performed By: #### C MP #### [facility] [address] [address] [address] Get Whitten Potassium [Moles/Vol] 3.5 mmol/L Normal 3.5-5.1 [facility] Comment on above: Performed By: #### C MP #### [facility] [address] [address] [address] Get Whitten Protein [Mass/Vol] 7.5 g/dL Normal 6.4-8.2 [facility] Comment on above: Performed By: #### C MP #### [facility] [address] [place] [address] Dr. Get Whitten Sodium [Moles/Vol] 135 mmol/L Critically low 136-145 [facility] Comment on above: Performed By: #### C MP #### [facility] [address] [address] [address] Get Whitten Urea nitrogen [Mass/Vol] 15.0 mg/dL Normal 7.0-18.0 [facility] Comment on above: Performed By: #### C MP #### [facility] [address] [place] [address] Dr. Get Whitten Urea nitrogen/Creatinin e [Mass ratio] 8.9 mg/mg Normal [facility] Comment on above: Performed By: #### C MP #### [facility] [address] [place] [address] Dr. Get Whitten T3, TOTAL (TRIIODOTHYRONINE) on 11-28-2022 T3, TOTAL <20 Critically low 71-180 [facility] Comment on above: Performed By: #### C VDTBH #### [facility] [address] [place] [address] Dr. Get Whitten AMMONIAon 11-27-2022 Ammonia (P) [Mass/Vol] ug/dL Critically low 11-32 [facility] Comment on above: Performed By: #### C MP #### [facility] [address] [place] [address] Dr. Get Whitten BNPon 11-27-2022 Natriuretic peptide B (Bld) [Mass/Vol] 50.0 pg/mL Normal <=900.0 [facility] Comment on above: Performed By: #### B CLEARANCE CUTTER, T7, CMP, TSH #### [facility] [address] [place] [address] Dr. Get Whitten CARDIAC ANA ADMITon 023 CK [Catalytic activity/Vol] 173 U/L Normal 39-308 [facility] Comment on above: Performed By: #### B CLEARANCE CUTTER, T7, CMP, TSH #### [facility] [address] [place] [address] Dr. Get Whitten CK.MB [Mass/Vol] 1.64 ng/mL Normal <=3.60 [facility] Comment on above: Performed By: #### B CLEARANCE CUTTER, T7, CMP, TSH #### [facility] [address] [place] [address] Dr. Get Whitten HSTROP 4.3 pg/mL Normal 4.0-76.1 [facility] Comment on above: Result Comment: CUT- OFF POINTS HAVE BEEN ESTABLISHED BASED ON THE FOURTH UNIVERSAL DEFINITIONS OF MYOCARDIAL INFARCTION. THE UPPER REFERENCE LIMIT (URL) OF TROPONIN, DEFINED THE 99TH PERCENTILE OF cTnI DISTRIBUTION IN A REFERENCE POPULATION, HAS BEEN CONFIRMED THE DECISION THRESHOLD FOR WI DIAGNOSIS. Performed By: #### B CLEARANCE CUTTER, T7, CMP, TSH #### [facility] [address] [place] [address] Dr. Get Whitten RAFA 72 ng/mL Normal 16-96 [facility] Comment on above: Performed By: #### B CLEARANCE CUTTER, T7, CMP, TSH #### [facility] [address] [place] [address] Dr. Get Whitten CBC AUTO DIFFon 11-27-2022 BASO # 0.1 103/ul Normal 0.0-0.1 [facility] Comment on above: Performed By: #### C VDTBH #### [facility] [address] [place] [address] Dr. Get Whitten Basophils/100 WBC (Bld) 0.6 % Normal 0.2-2.0 [facility] Comment on above: Performed By: #### C VDTBH #### [facility] [address] [place] [address] Dr. Get Whitten EO # 0.0 103/ul Normal 0.0-0.7 [facility] Comment on above: Performed By: #### C VDTBH #### [facility] [address] [place] [address] Dr. Get Whitten Eosinophils/100 WBC (Bld) 0.4 % Critically low 0.9-7.0 [facility] Comment on above: Performed By: #### C VDTBH #### [facility] [address] [place] [address] Dr. Get Whitten Erythrocyte distribution width (RBC) [Ratio] 18.6 % Critically high 11.0-15.0 [facility] Comment on above: Performed By: #### C VDTBH #### [facility] [address] [place] [address] Dr. Get Whitten Hematocrit (Bld) [Volume fraction] 35.4 % Critically low 42.0-54.0 [facility] Comment on above: Performed By: #### C VDTBH #### [facility] [address] [place] [address] Dr. Get Whitten Hemoglobin (Bld) [Mass/Vol] 11.9 g/dL Critically low 14.0-18.0 [facility] Comment on above: Performed By: #### C VDTBH #### [facility] [address] [place] [address] Dr. Get Whitten IG # 0.28 10e3/ul Critically high 0.00-0.03 [facility] Comment on above: Performed By: #### C VDTBH #### [facility] [address] [place] [address] Dr. Get Whitten IG % 3.5 % Critically high 0.0-0.5 [facility] Comment on above: Performed By: #### C VDTBH #### [facility] [address] [place] [address] Dr. Get Whitten LYMPH # 3.3 103/ul Normal 1.2-3.8 [facility] Comment on above: Performed By: #### C VDTBH #### [facility] [address] [place] [address] Dr. Get Whitten Lymphocytes/100 WBC (Bld) 41.6 % Normal 20.5-60.0 [facility] Comment on above: Performed By: #### C VDTBH #### [facility] [address] [place] [address] Dr. Get Whitten MANUAL DIFF REQ NO Normal [facility] Comment on above: Performed By: #### C VDTBH #### [facility] [address] [place] [address] Dr. Get Whitten MCH (RBC) [Entitic mass] 35.1 pg Critically high 25.9-34.0 [facility] Comment on above: Performed By: #### C VDTBH #### [facility] [address] [place] [address] Dr. Get Whitten MCHC (RBC) [Mass/Vol] 33.6 g/dL Normal 29.9-35.2 [facility] Comment on above: Performed By: #### C VDTBH #### [facility] [address] [place] [address] Dr. Get Whitten MCV (RBC) [Entitic vol] 104.4 fL Critically high 80.0-94.0 [facility] Comment on above: Performed By: #### C VDTBH #### [facility] [address] [place] [address] Dr. Get Whitten MONO # 0.4 103/ul Normal 0.3-0.8 [facility] Comment on above: Performed By: #### C VDTBH #### [facility] [address] [place] [address] Dr. Get Whitten Monocytes/100 WBC (Bld) 5.0 % Normal 1.7-12.0 [facility] Comment on above: Performed By: #### C VDTBH #### [facility] [address] [place] [address] Dr. Get Whitten NEUT # 3.9 103/ul Normal 1.4-6.5 [facility] Comment on above: Performed By: #### C VDTBH #### [facility] [address] [place] [address] Dr. Get Whitten Neutrophils/100 WBC (Bld) 48.9 % Normal 43.0-75.0 [facility] Comment on above: Performed By: #### C VDTBH #### [facility] [address], [place] [address] Dr. Get Whitten Platelet mean volume (Bld) [Entitic vol] 9.5 fL Normal 9.5-13.5 [facility] Comment on above: Performed By: #### C VDTBH #### [facility] [address], [place] [address] Dr. Get Whitten PLT 182 103/ul Normal 150-450 [facility] Comment on above: Performed By: #### C VDTBH #### [facility] [address] [place], [place] [address] Dr. Get Whitten RBC 3.39 106/ul Critically low 4.70-6.10 [facility] Comment on above: Performed By: #### C VDTBH #### [facility] [address] [address] [address] Get Whitten WBC 8.0 103/ul Normal 4.0-11.0 [facility] Comment on above: Performed By: #### C VDTBH #### [facility] [address] [address] [address] CSPINE WO CONon 3 CT CSPINE WO CON EXAMINATION: CT CSPINE WO CON HISTORY: Unspecified fall ; fell [...] SHEN SOSA Date: 2022-11-27 11:26 Normal [facility] CT STROKE HEAD WOon 11-28-19 CT STROKE HEAD WO EXAMINATION: CT STROKE HEAD WO HISTORY: Unspecified fall ; fell [...] SHEN SOSA Date: 2022-11-27 11:16 Normal [facility] Covid-19 PCR (CVDTBH)on 11-13 SARS-CoV-2 (COVID-19) RNA ASHLEE+probe Ql (Unsp spec) Not detected Normal NOT DETECTED [facility] Comment on above: Result Comment: THIS TEST IS NOT APPROVED BY THE FDA. IT HAS BEEN AUTHORIZED FOR USE UNDER AN EMERGENCY USE AUTHORIZATION. Performed By: #### C MP #### [facility] [address] [address] [address] Get Whitten ETHANOL (BLD ALC)on 11-28-19 ALC NOTE NOTE: 80 mg/dl is th e legal limit for a blood alcohol level Normal [facility] Comment on above: Performed By: #### B CLEARANCE CUTTER, T7, CMP, TSH #### [facility] [address] [address] [address] Get Whitten Ethanol [Mass/Vol] mg/dL Normal [facility] Comment on above: Performed By: #### B CLEARANCE CUTTER, T7, CMP, TSH #### [facility] [address] [place] [address] Dr. Get Whitten MAGNESIUMon 11-27-2022 Magnesium [Mass/Vol] 2.3 mg/dL Normal 1.8-2.4 [facility] Comment on above: Performed By: #### B CLEARANCE CUTTER, T7, CMP, TSH #### [facility] [address] [place] [address] Dr. Get Whitten PROF 14(COMP METB)on 023 Albumin [Mass/Vol] 4.1 g/dL Normal 3.4-5.0 [facility] Comment on above: Performed By: #### B CLEARANCE CUTTER, T7, CMP, TSH #### [facility] [address] [place] [address] Dr. Get Whitten Albumin/Globulin [Mass ratio] 1.1 {ratio} Normal [facility] Comment on above: Performed By: #### B CLEARANCE CUTTER, T7, CMP, TSH #### [facility] [address] [place] [address] Dr. Get Whitten ALP [Catalytic activity/Vol] 36 U/L Critically low 46-116 [facility] Comment on above: Performed By: #### B CLEARANCE CUTTER, T7, CMP, TSH #### [facility] [address] [place] [address] Dr. Get Whitten ALT [Catalytic activity/Vol] 15 U/L Critically low 16-63 [facility] Comment on above: Performed By: #### B CLEARANCE CUTTER, T7, CMP, TSH #### [facility] [address] [place] [address] Dr. Get Whitten Anion gap [Moles/Vol] 15.0 mmol/L Normal [facility] Comment on above: Performed By: #### B CLEARANCE CUTTER, T7, CMP, TSH #### [facility] [address] [place] [address] Dr. Get Whitten AST [Catalytic activity/Vol] 13 U/L Critically low 15-37 [facility] Comment on above: Performed By: #### B CLEARANCE CUTTER, T7, CMP, TSH #### [facility] [address] [place] [address] Dr. Get Whitten Bilirubin [Mass/Vol] 0.3 mg/dL Normal 0.2-1.0 [facility] Comment on above: Performed By: #### B CLEARANCE CUTTER, T7, CMP, TSH #### [facility] [address] [address] [address] Get Whitten Calcium [Mass/Vol] 9.1 mg/dL Normal 8.5-10.1 [facility] Comment on above: Performed By: #### B CLEARANCE CUTTER, T7, CMP, TSH #### [facility] [address] [address] [address] Get Whitten Chloride [Moles/Vol] 101 mmol/L Normal 98-107 [facility] Comment on above: Performed By: #### B CLEARANCE CUTTER, T7, CMP, TSH #### [facility] [address] [place] [address] Dr. Get Whitten CO2 [Moles/Vol] 22.2 mmol/L Normal 21.0-32.0 [facility] Comment on above: Performed By: #### B CLEARANCE CUTTER, T7, CMP, TSH #### [facility] [address] [address] [address] Get Whitten Creatinine [Mass/Vol] 1.84 mg/dL Critically high 0.70-1.30 [facility] Comment on above: Performed By: #### B CLEARANCE CUTTER, T7, CMP, TSH #### [facility] [address] [place] [address] Dr. Get Whitten EGFR-AF NAMIBIAN 46 mL/min/1.73m2 Critically low >=60 [facility] Comment on above: Performed By: #### B CLEARANCE CUTTER, T7, CMP, TSH #### [facility] [address] [address] [address] Get Whitten EGFR-NON AF NAMIBIAN 38 mL/min/1.73m2 Critically low >=60 [facility] Comment on above: Performed By: #### B CLEARANCE CUTTER, T7, CMP, TSH #### [facility] [address] [address] [address] Get Whitten Globulin (S) [Mass/Vol] 3.6 g/dL Normal [facility] Comment on above: Performed By: #### B CLEARANCE CUTTER, T7, CMP, TSH #### [facility] [address] [address] [address] Get Whitten Glucose [Mass/Vol] 87 mg/dL Normal 74-106 [facility] Comment on above: Performed By: #### B CLEARANCE CUTTER, T7, CMP, TSH #### [facility] [address] [address] [address] Get Whitten Potassium [Moles/Vol] 4.2 mmol/L Normal 3.5-5.1 [facility] Comment on above: Performed By: #### B CLEARANCE CUTTER, T7, CMP, TSH #### [facility] [address] [place] [address] Dr. Get Whitten Protein [Mass/Vol] 7.7 g/dL Normal 6.4-8.[address] [facility] Comment on above: Performed By: #### B CLEARANCE CUTTER, T7, CMP, TSH #### [facility] [address] [place] [address] Dr. Get Whitten Sodium [Moles/Vol] 134 mmol/L Critically low 136-145 [facility] Comment on above: Performed By: #### B CLEARANCE CUTTER, T7, CMP, TSH #### [facility] [address] [place] [address] Dr. Get Whitten Urea nitrogen [Mass/Vol] 14.0 mg/dL Normal 7.0-18.0 [facility] Comment on above: Performed By: #### B CLEARANCE CUTTER, T7, CMP, TSH #### [facility] [address] [place] [address] Dr. Get Whitten Urea nitrogen/Creatinin e [Mass ratio] 7.6 mg/mg Normal [facility] Comment on above: Performed By: #### B CLEARANCE CUTTER, T7, CMP, TSH #### [facility] [address] [place] [address] Dr. Get Whitten PROTIMEon 11-27-2022 INR Coag (PPP) [Relative time] 0.98 {INR} Normal [facility] Comment on above: Performed By: #### B CLEARANCE CUTTER, T7, CMP, TSH #### [facility] [address] [place] [address] Dr. Get Whitten INR GUIDELINES SEE BELOW Normal [facility] Comment on above: Result Comment: JORGE RED INR: 2.0 - 3.0 CONDITIONS NOT LISTED BELOW 2.5 - 3.5 FOR PROSTHETIC HEART VALVE REPLACEMENT 2.5 - 3.5 RECURRENT THROMBOSIS Performed By: #### B CLEARANCE CUTTER, T7, CMP, TSH #### [facility] [address] [place] [address] Dr. Get Whitten PT Coag (PPP) [Time] 10.4 s Normal 9.0-11.6 [facility] Comment on above: Performed By: #### B CLEARANCE CUTTER, T7, CMP, TSH #### [facility] [address] [place] [address] Dr. Get Whitten PTTon 11-27-2022 aPTT Coag (Bld) [Time] 30.4 s Normal 22.3-36.2 [facility] Comment on above: Performed By: #### B CLEARANCE CUTTER, T7, CMP, TSH #### [facility] [address] [place] [address] Dr. Get Whitten SYMPTOMATIC COVID-19 ANTIGEN on 11-27-2022 EUA Statement SEE BELOW Normal [facility] Comment on above: Result Comment: This test [...] By: #### C MP, HSTROPN, BNP #### [facility] [address] [place] [address] Dr. Get Whitten SARS-CoV-2 (COVID-19) RNA ASHLEE+probe Ql (Unsp spec) Negative Normal NEGATIVE [facility] Comment on above: Performed By: #### C MP, HSTROPN, BNP #### [facility] [address] [address] [address] Get Whitten T4on 11-27-2022 T4 [Mass/Vol] 0.90 ug/dL Critically low 4.50-12.10 [facility] Comment on above: Performed By: #### B CLEARANCE CUTTER, T7, CMP, TSH #### [facility] [address] [address] [address] Get Whitten TROPONIN, HIGH SENSITIVITYon 11-27-2022 HSTROP 4.1 pg/mL Normal 4.0-76.1 [facility] Comment on above: Result Comment: CUT- OFF POINTS HAVE BEEN ESTABLISHED BASED ON THE FOURTH UNIVERSAL DEFINITIONS OF MYOCARDIAL INFARCTION. THE UPPER REFERENCE LIMIT (URL) OF TROPONIN, DEFINED THE 99TH PERCENTILE OF cTnI DISTRIBUTION IN A REFERENCE POPULATION, HAS BEEN CONFIRMED THE DECISION THRESHOLD FOR WI DIAGNOSIS. Performed By: #### B CLEARANCE CUTTER, T7, CMP, TSH #### [facility] [address] [address] [address] Get Whitten TSHon 11-27-2022 TSH 134.470 uIU/mL Critically high 0.358-3.740 [facility] Comment on above: Performed By: #### B CLEARANCE CUTTER, T7, CMP, TSH #### [facility] [address] [address] [address] Get Whitten XR CHEST 1 Von [...] by: SHEN SOSA Date: 2022-11-27 11:19 Normal [facility] XR CSPINE MIN 4 [...] by: SHEN SOSA Date: 2022-10-24 10:22 Normal [facility] XR LSPINE MIN 4 [...] by: SHEN SOSA Date: 2022-10-24 10:19 Normal [facility] H PYLORI ANTIBODY IGGon 10-0 H. PYLORI IGG ABS 0.07 Index Value Normal 0.00-0.79 [facility] Comment on above: Result Comment: Nega tive <0.80 Equivocal 0.80 - 0.89 Positive >0.89 Performed By: #### B CLEARANCE CUTTER, T7, CMP, TSH #### [facility] [address] [place] [address] Dr. Get Whitten BNPon 04-15-2022 Natriuretic peptide B (Bld) [Mass/Vol] 138.0 pg/mL Normal <=900.0 [facility] Comment on above: Performed By: #### B CLEARANCE CUTTER, T7, CMP, TSH #### [facility] [address] [place] [address] Dr. Get Whitten CBC AUTO DIFFon 04-15-2022 BASO # 0.0 103/ul Normal 0.0-0.1 [facility] Comment on above: Performed By: #### C MP, HSTROPN, BNP #### [facility] [address] [place] [address] Dr. Get Whitten Basophils/100 WBC (Bld) 0.4 % Normal 0.2-2.0 [facility] Comment on above: Performed By: #### C MP, HSTROPN, BNP #### [facility] [address] [place] [address] Dr. Get Whitten EO # 0.0 103/ul Normal 0.0-0.7 [facility] Comment on above: Performed By: #### C MP, HSTROPN, BNP #### [facility] [address] [place] [address] Dr. Get Whitten Eosinophils/100 WBC (Bld) 0.3 % Critically low 0.9-7.0 [facility] Comment on above: Performed By: #### C MP, HSTROPN, BNP #### [facility] [address] [place] [address] Dr. Get Whitten Erythrocyte distribution width (RBC) [Ratio] 13.2 % Normal 11.0-15.0 [facility] Comment on above: Performed By: #### C MP, HSTROPN, BNP #### [facility] [address] [place] [address] Dr. Get Whitten Hematocrit (Bld) [Volume fraction] 37.9 % Critically low 42.0-54.0 [facility] Comment on above: Performed By: #### C MP, HSTROPN, BNP #### [facility] [address] [place] [address] Dr. Get Whitten Hemoglobin (Bld) [Mass/Vol] 13.1 g/dL Critically low 14.0-18.0 [facility] Comment on above: Performed By: #### C MP, HSTROPN, BNP #### [facility] [address] [place] [address] Dr. Get Whitten IG # 0.24 10e3/ul Critically high 0.00-0.03 [facility] Comment on above: Performed By: #### C MP, HSTROPN, BNP #### [facility] [address] [place] [address] Dr. Get Whitten IG % 3.1 % Critically high 0.0-0.5 [facility] Comment on above: Performed By: #### C MP, HSTROPN, BNP #### [facility] [address] [place] [address] Dr. Get Whitten LYMPH # 3.1 103/ul Normal 1.2-3.8 [facility] Comment on above: Performed By: #### C MP, HSTROPN, BNP #### [facility] [address] [place] [address] Dr. Get Whitten Lymphocytes/100 WBC (Bld) 40.3 % Normal 20.5-60.0 [facility] Comment on above: Performed By: #### C MP, HSTROPN, BNP #### [facility] [address] [place] [address] Dr. Get Whitten MANUAL DIFF REQ NO Normal [facility] Comment on above: Performed By: #### C MP, HSTROPN, BNP #### [facility] [address] [place] [address] Dr. Get Whitten MCH (RBC) [Entitic mass] 36.1 pg Critically high 25.9-34.0 [facility] Comment on above: Performed By: #### C MP, HSTROPN, BNP #### [facility] [address] [place] [address] Dr. Get Whitten MCHC (RBC) [Mass/Vol] 34.6 g/dL Normal 29.9-35.2 [facility] Comment on above: Performed By: #### C MP, HSTROPN, BNP #### [facility] [address] [place] [address] Dr. Get Whitten MCV (RBC) [Entitic vol] 104.4 fL Critically high 80.0-94.0 [facility] Comment on above: Performed By: #### C MP, HSTROPN, BNP #### [facility] [address] [place] [address] Dr. Get Whitten MONO # 0.7 103/ul Normal 0.3-0.8 [facility] Comment on above: Performed By: #### C MP, HSTROPN, BNP #### [facility] [address] [place] [address] Dr. Get Whitten Monocytes/100 WBC (Bld) 9.4 % Normal 1.7-12.0 [facility] Comment on above: Performed By: #### C MP, HSTROPN, BNP #### [facility] [address] [place] [address] Dr. Get Whitten NEUT # 3.6 103/ul Normal 1.4-6.5 [facility] Comment on above: Performed By: #### C MP, HSTROPN, BNP #### [facility] [address] [place] [address] Dr. Get Whitten Neutrophils/100 WBC (Bld) 46.5 % Normal 43.0-75.0 [facility] Comment on above: Performed By: #### C MP, HSTROPN, BNP #### [facility] [address] [place] [address] Dr. Get Whitten Platelet mean volume (Bld) [Entitic vol] 8.5 fL Critically low 9.5-13.5 [facility] Comment on above: Performed By: #### C MP, HSTROPN, BNP #### [facility] [address] [place] [address] Dr. Get Whitten PLT 128 103/ul Critically low 150-450 [facility] Comment on above: Performed By: #### C MP, HSTROPN, BNP #### [facility] [address] [place] [address] Dr. Get Whitten RBC 3.63 106/ul Critically low 4.70-6.10 [facility] Comment on above: Performed By: #### C MP, HSTROPN, BNP #### [facility] [address] [place] [address] Dr. Get Whitten WBC 7.7 103/ul Normal 4.0-11.0 [facility] Comment on above: Performed By: #### C MP, HSTROPN, BNP #### [facility] [address] [place] [address] Dr. Get Whitten FREE THYROXINE INDEX T7on FTI 0.22 Critically low 1.30-4.50 [facility] Comment on above: Performed By: #### B CLEARANCE CUTTER, T7, CMP, TSH #### [facility] [address] [place] [address] Dr. Get Whitten T3U 37.0 % Normal 33.0-40.0 [facility] Comment on above: Performed By: #### B CLEARANCE CUTTER, T7, CMP, TSH #### [facility] [address] [place] [address] Dr. Get Whitten T4 [Mass/Vol] 0.60 ug/dL Critically low 4.50-12.10 [facility] Comment on above: Performed By: #### B CLEARANCE CUTTER, T7, CMP, TSH #### [facility] [address] [place] [address] Dr. Get Whitten IRONon 04-15-2022 Iron [Mass/Vol] 74.0 ug/dL Normal 65.0-175.0 [facility] Comment on above: Performed By: #### C VDTBH #### [facility] [address] [place] [address] Dr. Get Whitten PROF 14(COMP METB)on 022 Albumin [Mass/Vol] 3.6 g/dL Normal 3.4-5.0 [facility] Comment on above: Performed By: #### B CLEARANCE CUTTER, T7, CMP, TSH #### [facility] [address] [address] [address] Get Whitten Albumin/Globulin [Mass ratio] 1.3 {ratio} Normal [facility] Comment on above: Performed By: #### B CLEARANCE CUTTER, T7, CMP, TSH #### [facility] [address] [address] [address] Get Whitten ALP [Catalytic activity/Vol] 41 U/L Critically low 46-116 [facility] Comment on above: Performed By: #### B CLEARANCE CUTTER, T7, CMP, TSH #### [facility] [address] [place] [address] Dr. Get Whitten ALT [Catalytic activity/Vol] 111 U/L Critically high 16-63 [facility] Comment on above: Performed By: #### B CLEARANCE CUTTER, T7, CMP, TSH #### [facility] [address] [address] [address] Get Whitten Anion gap [Moles/Vol] 10.3 mmol/L Normal [facility] Comment on above: Performed By: #### B CLEARANCE CUTTER, T7, CMP, TSH #### [facility] [address] [place] [address] Dr. Get Whitten AST [Catalytic activity/Vol] 30 U/L Normal 15-37 [facility] Comment on above: Performed By: #### B CLEARANCE CUTTER, T7, CMP, TSH #### [facility] [address] [address] [address] Get Whitten Bilirubin [Mass/Vol] 0.3 mg/dL Normal 0.2-1.0 [facility] Comment on above: Performed By: #### B CLEARANCE CUTTER, T7, CMP, TSH #### [facility] [address] [place] [address] Dr. Get Whitten Calcium [Mass/Vol] 8.1 mg/dL Critically low 8.5-10.1 [facility] Comment on above: Performed By: #### B CLEARANCE CUTTER, T7, CMP, TSH #### [facility] [address] [address] [address] eGt Whitten Chloride [Moles/Vol] 98 mmol/L Normal 98-107 [facility] Comment on above: Performed By: #### B CLEARANCE CUTTER, T7, CMP, TSH #### [facility] [address] [place] [address] Dr. Get Whitten CO2 [Moles/Vol] 24.7 mmol/L Normal 21.0-32.0 [facility] Comment on above: Performed By: #### B CLEARANCE CUTTER, T7, CMP, TSH #### [facility] [address] [place] [address] Dr. Get Whitten Creatinine [Mass/Vol] 1.24 mg/dL Normal 0.70-1.30 [facility] Comment on above: Performed By: #### B CLEARANCE CUTTER, T7, CMP, TSH #### [facility] [address] [place] [address] Dr. Get Whitten EGFR-AF NAMIBIAN >60 Normal >=60 [facility] Comment on above: Performed By: #### B CLEARANCE CUTTER, T7, CMP, TSH #### [facility] [address] [place] [address] Dr. Get Whitten EGFR-NON AF NAMIBIAN =60 Normal >=60 [facility] Comment on above: Performed By: #### B CLEARANCE CUTTER, T7, CMP, TSH #### [facility] [address] [place] [address] Dr. Get Whitten Globulin (S) [Mass/Vol] 2.7 g/dL Normal [facility] Comment on above: Performed By: #### B CLEARANCE CUTTER, T7, CMP, TSH #### [facility] [address] [place] [address] Dr. Get Whitten Glucose [Mass/Vol] 107 mg/dL Critically high 74-106 [facility] Comment on above: Performed By: #### B CLEARANCE CUTTER, T7, CMP, TSH #### [facility] [address] [place] [address] Dr. Get Whitten Potassium [Moles/Vol] 4.0 mmol/L Normal 3.5-5.1 [facility] Comment on above: Performed By: #### B CLEARANCE CUTTER, T7, CMP, TSH #### [facility] [address] [place] [address] Dr. Get Whitten Protein [Mass/Vol] 6.3 g/dL Critically low 6.4-8.2 [facility] Comment on above: Performed By: #### B CLEARANCE CUTTER, T7, CMP, TSH #### [facility] [address] [place] [address] Dr. Get Whitten Sodium [Moles/Vol] 129 mmol/L Critically low 136-145 [facility] Comment on above: Performed By: #### B CLEARANCE CUTTER, T7, CMP, TSH #### [facility] [address] [place] [address] Dr. Get Whitten Urea nitrogen [Mass/Vol] 12.0 mg/dL Normal 7.0-18.0 [facility] Comment on above: Performed By: #### B CLEARANCE CUTTER, T7, CMP, TSH #### [facility] [address] [place] [address] Dr. Get Whitten Urea nitrogen/Creatinin e [Mass ratio] 9.7 mg/mg Normal [facility] Comment on above: Performed By: #### B CLEARANCE CUTTER, T7, CMP, TSH #### [facility] [address] [place] [address] Dr. Get Whitten TSHon 04-15-2022 TSH 76.327 uIU/mL Critically high 0.358-3.740 [facility] Comment on above: Performed By: #### B CLEARANCE CUTTER, T7, CMP, TSH #### [facility] [address] [place] [address] Dr. Get Whitten BNPon 03-31-2022 Natriuretic peptide B (Bld) [Mass/Vol] 349.0 pg/mL Normal <=900.0 [facility] Comment on above: Performed By: #### B CLEARANCE CUTTER, T7, CMP, TSH #### [facility] [address] [place] [address] Dr. Get Whitten CBC W MANUAL DIFFon 03-31-20 22 ATYPICAL LYMPH # 0.26 103/ul Normal [facility] Comment on above: Performed By: #### C MP #### [facility] [address] [place] [address] Dr. Get Whitten ATYPICAL LYMPH % 2 % Normal [facility] Comment on above: Performed By: #### C MP #### [facility] [address] [place] [address] Dr. Get Whitten BAND # 0.0 103/ul Normal 0.0-0.3 [facility] Comment on above: Performed By: #### C MP #### [facility] [address] [place] [address] Dr. Get Whitten BAND % 0 % Normal 0-5 [facility] Comment on above: Performed By: #### C MP #### [facility] [address] [place] [address] Dr. Get Whitten BASOM # 0.00 103/ul Normal 0.00-0.10 [facility] Comment on above: Performed By: #### C MP #### [facility] [address] [place] [address] Dr. Get Whitten BASOM % 0.0 % Critically low 0.2-2.0 [facility] Comment on above: Performed By: #### C MP #### [facility] [address] [place] [address] Dr. Get hWitten BLAST # Normal [facility] Comment on above: Performed By: #### C MP #### [facility] [address] [place] [address] Dr. Get Whitten BLAST % Normal [facility] Comment on above: Performed By: #### C MP #### [facility] [address] [place] [address] Dr. Get Whitten CORRECTED WBC Normal 4.0-11.0 [facility] Comment on above: Performed By: #### C MP #### [facility] [address] [place] [address] Dr. Get Whitten EOS # 0.00 103/ul Normal 0.00-0.70 [facility] Comment on above: Performed By: #### C MP #### [facility] [address] [address] [address] Get Whitten EOS% 0.0 % Critically low 0.9-7.0 [facility] Comment on above: Performed By: #### C MP #### [facility] [address] [address] [address] Get Whitten HCT 38.3 % Critically low 42.0-54.0 [facility] Comment on above: Performed By: #### C MP #### [facility] [address] [address] [address] Get Whitten HGB 13.7 g/dl Critically low 14.0-18.0 [facility] Comment on above: Performed By: #### C MP #### [facility] [address] [address] [address] Get Whitten LYMPHM # 1.43 103/ul Normal 1.20-3.80 [facility] Comment on above: Performed By: #### C MP #### [facility] [address] [address] [address] Get Whitten LYMPHM% 11.0 % Critically low 20.5-60.0 [facility] Comment on above: Performed By: #### C MP #### [facility] [address] [address] [address] Get Whitten MCH 36.3 pg Critically high 25.9-34.0 [facility] Comment on above: Performed By: #### C MP #### [facility] [address] [address] [address] Get Whitten MCHC 35.8 g/dl Critically high 29.9-35.2 [facility] Comment on above: Performed By: #### C MP #### [facility] [address] [address] [address] Get Whitten MCV 101.6 fL Critically high 80.0-94.0 [facility] Comment on above: Performed By: #### C MP #### [facility] [address] [address] [address] Get Whitten METAMYELOCYTE # Normal [facility] Comment on above: Performed By: #### C MP #### [facility] [address] [place] [address] Dr. Get Whitten METAMYELOCYTE % Normal [facility] Comment on above: Performed By: #### C MP #### [facility] [address] [place] [address] Dr. Get Whitten MONOM# 0.78 103/ul Normal 0.30-0.80 [facility] Comment on above: Performed By: #### C MP #### [facility] [address] [place] [address] Dr. Get Whitten MONOM% 6.0 % Normal 1.7-12.0 [facility] Comment on above: Performed By: #### C MP #### [facility] [address] [place] [address] Dr. Get Whitten MPV 8.7 fL Critically low 9.5-13.5 [facility] Comment on above: Performed By: #### C MP #### [facility] [address] [place] [address] Dr. Get Whitten MYELOCYTE # Normal [facility] Comment on above: Performed By: #### C MP #### [facility] [address] [place] [address] Dr. Get Whitten MYELOCYTE % Normal [facility] Comment on above: Performed By: #### C MP #### [facility] [address] [place] [address] Dr. Get Whitten NRBC [facility] Comment on above: Performed By: #### C MP #### [facility] [address] [place] [address] Dr. Get Whitten PLT 225 103/ul Normal 150-450 [facility] Comment on above: Performed By: #### C MP #### [facility] [address] [place] [address] Dr. Get Whitten RBC 3.77 106/ul Critically low 4.70-6.10 [facility] Comment on above: Performed By: #### C MP #### [facility] [address] [address] [address] Get Whitten RDW 12.7 % Normal 11.0-15.0 [facility] Comment on above: Performed By: #### C MP #### [facility] [address] [address] [address] Get Whitten SEG # 10.53 103/ul Critically high 1.40-6.50 [facility] Comment on above: Performed By: #### C MP #### [facility] [address] [address] [address] Get Whitten SEG % 81.0 % Critically high 43.0-75.0 [facility] Comment on above: Performed By: #### C MP #### [facility] [address] [place] [address] Dr. Get Whitten WBC 13.0 103/ul Critically high 4.0-11.0 [facility] Comment on above: Performed By: #### C MP #### [facility] [address] [place] [address] Dr. Get Whitten CRPon 03-31-2022 CRP [Mass/Vol] mg/L Normal <=1.0 [facility] Comment on above: Performed By: #### B CLEARANCE CUTTER, T7, CMP, TSH #### [facility] [address] [place] [address] Dr. Get Whitten PROF 14(COMP METB)on 022 Albumin [Mass/Vol] 3.3 g/dL Critically low 3.4-5.0 [facility] Comment on above: Performed By: #### B CLEARANCE CUTTER, T7, CMP, TSH #### [facility] [address] [place] [address] Dr. Get Whitten Albumin/Globulin [Mass ratio] 1.2 {ratio} [facility] Comment on above: Performed By: #### B CLEARANCE CUTTER, T7, CMP, TSH #### [facility] [address] [place] [address] Dr. Get Whitten ALP [Catalytic activity/Vol] 48 U/L Normal 46-116 [facility] Comment on above: Performed By: #### B CLEARANCE CUTTER, T7, CMP, TSH #### [facility] [address] [address] [address] Get Whitten ALT [Catalytic activity/Vol] 130 U/L Critically high 16-63 [facility] Comment on above: Performed By: #### B CLEARANCE CUTTER, T7, CMP, TSH #### [facility] [address] [place] [address] Dr. Get Whitten Anion gap [Moles/Vol] 11.9 mmol/L [facility] Comment on above: Performed By: #### B CLEARANCE CUTTER, T7, CMP, TSH #### [facility] [address] [place] [address] Dr. Get Whitten AST [Catalytic activity/Vol] 50 U/L Critically high 15-37 [facility] Comment on above: Performed By: #### B CLEARANCE CUTTER, T7, CMP, TSH #### [facility] [address] [place] [address] Dr. Get Whitten Bilirubin [Mass/Vol] 0.5 mg/dL Normal 0.2-1.0 [facility] Comment on above: Performed By: #### B CLEARANCE CUTTER, T7, CMP, TSH #### [facility] [address] [place] [address] Dr. Get Whitten Calcium [Mass/Vol] 7.9 mg/dL Critically low 8.5-10.1 [facility] Comment on above: Performed By: #### B CLEARANCE CUTTER, T7, CMP, TSH #### [facility] [address] [place] [address] Dr. Get Whitten Chloride [Moles/Vol] 99 mmol/L Normal 98-107 [facility] Comment on above: Performed By: #### B CLEARANCE CUTTER, T7, CMP, TSH #### [facility] [address] [place] [address] Dr. Get Whitten CO2 [Moles/Vol] 18.4 mmol/L Critically low 21.0-32.0 [facility] Comment on above: Performed By: #### B CLEARANCE CUTTER, T7, CMP, TSH #### [facility] [address] [address] [address] Get Whitten Creatinine [Mass/Vol] 0.96 mg/dL Normal 0.70-1.30 [facility] Comment on above: Performed By: #### B CLEARANCE CUTTER, T7, CMP, TSH #### [facility] [address] [address] [address] Get Whitten EGFR-AF NAMIBIAN >60 Normal >=60 [facility] Comment on above: Performed By: #### B CLEARANCE CUTTER, T7, CMP, TSH #### [facility] [address] [address] [address] Get Whitten EGFR-NON AF NAMIBIAN >60 Normal >=60 [facility] Comment on above: Performed By: #### B CLEARANCE CUTTER, T7, CMP, TSH #### [facility] [address] [address] [address] Get Whitten Globulin (S) [Mass/Vol] 2.8 g/dL [facility] Comment on above: Performed By: #### B CLEARANCE CUTTER, T7, CMP, TSH #### [facility] [address] [address] [address] Get Whitten Glucose [Mass/Vol] 166 mg/dL Critically high 74-106 [facility] Comment on above: Performed By: #### B CLEARANCE CUTTER, T7, CMP, TSH #### [facility] [address] [address] [address] Get Whitten Potassium [Moles/Vol] 3.3 mmol/L Critically low 3.5-5.1 [facility] Comment on above: Performed By: #### B CLEARANCE CUTTER, T7, CMP, TSH #### [facility] [address] [address] [address] Get Whitten Protein [Mass/Vol] 6.1 g/dL Critically low 6.4-8.2 [facility] Comment on above: Performed By: #### B CLEARANCE CUTTER, T7, CMP, TSH #### [facility] [address] [place] [address] Dr. Get Whitten Sodium [Moles/Vol] 126 mmol/L Critically low 136-145 [facility] Comment on above: Performed By: #### B CLEARANCE CUTTER, T7, CMP, TSH #### [facility] [address] [place] [address] Dr. Get Whitten Urea nitrogen [Mass/Vol] 8.0 mg/dL Normal 7.0-18.0 [facility] Comment on above: Performed By: #### B CLEARANCE CUTTER, T7, CMP, TSH #### [facility] [address] [place] [address] Dr. Get Whitten Urea nitrogen/Creatinin e [Mass ratio] 8.3 mg/mg [facility] Comment on above: Performed By: #### B CLEARANCE CUTTER, T7, CMP, TSH #### [facility] [address] [place] [address] Dr. Get Whitten BNPon 03-30-2022 Natriuretic peptide B (Bld) [Mass/Vol] 274.0 pg/mL Normal <=900.0 [facility] Comment on above: Performed By: #### C MP, HSTROPN, BNP #### [facility] [address] [place] [address] Dr. Get Whitten CARDIAC ANA 3-6on 2 CK [Catalytic activity/Vol] 48 U/L Normal 39-308 [facility] Comment on above: Performed By: #### B CLEARANCE CUTTER, T7, CMP, TSH #### [facility] [address] [place] [address] Dr. Get Whitten CK.MB [Mass/Vol] 1.62 ng/mL Normal <=3.60 [facility] Comment on above: Performed By: #### B CLEARANCE CUTTER, T7, CMP, TSH #### [facility] [address] [place] [address] Dr. Get Whitten HSTROP 15.7 pg/mL Normal 4.0-76.1 [facility] Comment on above: Result Comment: CUT- OFF POINTS HAVE BEEN ESTABLISHED BASED ON THE FOURTH UNIVERSAL DEFINITIONS OF MYOCARDIAL INFARCTION. THE UPPER REFERENCE LIMIT (URL) OF TROPONIN, DEFINED THE 99TH PERCENTILE OF cTnI DISTRIBUTION IN A REFERENCE POPULATION, HAS BEEN CONFIRMED THE DECISION THRESHOLD FOR [place] DIAGNOSIS. Performed By: #### B CLEARANCE CUTTER, T7, CMP, TSH #### [facility] [address] [place] [address] Dr. Get Whitten CBC AUTO DIFFon 03-30-2022 BASO # 0.1 103/ul Normal 0.0-0.1 [facility] Comment on above: Performed By: #### C MP #### [facility] [address] [place] [address] Dr. Get Whitten Basophils/100 WBC (Bld) 0.8 % Normal 0.2-2.0 [facility] Comment on above: Performed By: #### C MP #### [facility] [address] [place] [address] Dr. Get Whitten EO # 0.6 103/ul Normal 0.0-0.7 [facility] Comment on above: Performed By: #### C MP #### [facility] [address] [place] [address] Dr. Get Whitten Eosinophils/100 WBC (Bld) 5.2 % Normal 0.9-7.0 [facility] Comment on above: Performed By: #### C MP #### [facility] [address] [place] [address] Dr. Get Whitten Erythrocyte distribution width (RBC) [Ratio] 12.7 % Normal 11.0-15.0 [facility] Comment on above: Performed By: #### C MP #### [facility] [address] [place] [address] Dr. Get Whitten Hematocrit (Bld) [Volume fraction] 41.7 % Critically low 42.0-54.0 [facility] Comment on above: Performed By: #### C MP #### [facility] [address] [place] [address] Dr. Get Whitten Hemoglobin (Bld) [Mass/Vol] 14.9 g/dL Normal 14.0-18.0 [facility] Comment on above: Performed By: #### C MP #### [facility] [address] [place] [address] Dr. Get Whitten IG # 0.48 10e3/ul Critically high 0.00-0.03 [facility] Comment on above: Performed By: #### C MP #### [facility] [address] [address] [address] Get Whitten IG % 4.1 % Critically high 0.0-0.5 [facility] Comment on above: Performed By: #### C MP #### [facility] [address] [address] [address] Get Whitten LYMPH # 1.4 103/ul Normal 1.2-3.8 [facility] Comment on above: Performed By: #### C MP #### [facility] [address] [place] [address] Dr. Get Whitten Lymphocytes/100 WBC (Bld) 11.9 % Critically low 20.5-60.0 [facility] Comment on above: Performed By: #### C MP #### [facility] [address] [place] [address] Dr. Get Whitten MANUAL DIFF REQ NO Normal [facility] Comment on above: Performed By: #### C MP #### [facility] [address] [place] [address] Dr. Get Whitten MCH (RBC) [Entitic mass] 36.8 pg Critically high 25.9-34.0 [facility] Comment on above: Performed By: #### C MP #### [facility] [address] [place] [address] Dr. Get Whitten MCHC (RBC) [Mass/Vol] 35.7 g/dL Critically high 29.9-35.2 [facility] Comment on above: Performed By: #### C MP #### [facility] [address] [place] [address] Dr. Get Whitten MCV (RBC) [Entitic vol] 103.0 fL Critically high 80.0-94.0 [facility] Comment on above: Performed By: #### C MP #### [facility] [address] [place] [address] Dr. Get Whitten MONO # 0.5 103/ul Normal 0.3-0.8 [facility] Comment on above: Performed By: #### C MP #### [facility] [address] [place] [address] Dr. Get Whitten Monocytes/100 WBC (Bld) 4.3 % Normal 1.7-12.0 [facility] Comment on above: Performed By: #### C MP #### [facility] [address] [place] [address] Dr. Get Whitten NEUT # 8.6 103/ul Critically high 1.4-6.5 [facility] Comment on above: Performed By: #### C MP #### [facility] [address] [place] [address] Dr. Get Whitten Neutrophils/100 WBC (Bld) 73.7 % Normal 43.0-75.0 [facility] Comment on above: Performed By: #### C MP #### [facility] [address] [place] [address] Dr. Get Whitten Platelet mean volume (Bld) [Entitic vol] 9.0 fL Critically low 9.5-13.5 [facility] Comment on above: Performed By: #### C MP #### [facility] [address] [place] [address] Dr. Get Whitten PLT 244 103/ul Normal 150-450 [facility] Comment on above: Performed By: #### C MP #### [facility] [address] [place] [address] Dr. Get Whitten RBC 4.05 106/ul Critically low 4.70-6.10 [facility] Comment on above: Performed By: #### C MP #### [facility] [address] [place] [address] Dr. Get Whitten WBC 11.7 103/ul Critically high 4.0-11.0 [facility] Comment on above: Performed By: #### C MP #### [facility] [address] [place] [address] Dr. Get Whitten CRPon 03-30-2022 CRP 0.3 mg/dL Normal <=1.0 [facility] Comment on above: Performed By: #### C MP, HSTROPN, BNP #### [facility] [address] [address] [address] Get Whitten CULTURE SPUTUMon 03-30-2022 CULTURE [...] >=8 R F Clindamycin >=8 R F Quinupristin/Dalfopri stin <=0.25 S F Linezolid 1 S F Vancomycin <=0.5 S F Tetracycline >=16 R F Rifampicin <=0.5 S F Trimethoprim/Sulfamet hoxazole <=10 S F Oxacillin >=4 R F [facility] Comment on above: Performed By: #### B CLEARANCE CUTTER, T7, CMP, TSH #### [facility] [address] [place] [address] Dr. Get Whitten ECHO LIMITED STUDYon 022 ECHO LIMITED STUDY Patient: REHAN POOLE Exam Date: 03/30/2022 : 1965 Gender:M Ordering : DR PEE LAKHANI . Admission #: [id number] Family : Order #: [id number] CLICK HERE TO VIEW EXAM ECHOCARDIOGRAM REPORT [...] Dominguez M.D. on 03/31/2022 at 19:42 [facility] PROF 14(COMP METB)on 022 Albumin [Mass/Vol] 3.5 g/dL Normal 3.4-5.0 [facility] Comment on above: Performed By: #### C MP, HSTROPN, BNP #### [facility] [address] [address] [address] Get Whitten Albumin/Globulin [Mass ratio] 1.2 {ratio} [facility] Comment on above: Performed By: #### C MP, HSTROPN, BNP #### [facility] [address] [address] [address] Get Whitten ALP [Catalytic activity/Vol] 58 U/L Normal 46-116 [facility] Comment on above: Performed By: #### C MP, HSTROPN, BNP #### [facility] [address] [address] [address] Get Whitten ALT [Catalytic activity/Vol] 108 U/L Critically high 16-63 [facility] Comment on above: Performed By: #### C MP HSTROPN, BNP #### [facility] [address] [place] [address] Dr. Get Whitten Anion gap [Moles/Vol] 12.6 mmol/L [facility] Comment on above: Performed By: #### C MP, HSTROPN, BNP #### [facility] [address] [place] [address] Dr. Get Whitten AST [Catalytic activity/Vol] 33 U/L Normal 15-37 [facility] Comment on above: Performed By: #### C MP HSTROPN, BNP #### [facility] [address] [place] [address] Dr. Get Whitten Bilirubin [Mass/Vol] 0.6 mg/dL Normal 0.2-1.0 [facility] Comment on above: Performed By: #### C MP, HSTROPN, BNP #### [facility] [address] [place] [address] Dr. Get Whitten Calcium [Mass/Vol] 8.0 mg/dL Critically low 8.5-10.1 [facility] Comment on above: Performed By: #### C FILOMENA HSTROPN, BNP #### [facility] [address] [place] [address] Dr. Get Whitten Chloride [Moles/Vol] 99 mmol/L Normal 98-107 [facility] Comment on above: Performed By: #### C MP, HSTROPN, BNP #### [facility] [address] [place] [address] Dr. Get Whitten CO2 [Moles/Vol] 22.0 mmol/L Normal 21.0-32.0 [facility] Comment on above: Performed By: #### C MP, HSTROPN, BNP #### [facility] [address] [place] [address] Dr. Get Whitten Creatinine [Mass/Vol] 1.12 mg/dL Normal 0.70-1.30 [facility] Comment on above: Performed By: #### C MP, HSTROPN, BNP #### [facility] [address] [place] [address] Dr. Get Whitten EGFR-AF NAMIBIAN >60 Normal >=60 [facility] Comment on above: Performed By: #### C MP, HSTROPN, BNP #### [facility] [address] [place] [address] Dr. Get Whitten EGFR-NON AF NAMIBIAN >60 Normal >=60 [facility] Comment on above: Performed By: #### C MP, HSTROPN, BNP #### [facility] [address] [place] [address] Dr. Get Whitten Globulin (S) [Mass/Vol] 3.0 g/dL Normal [facility] Comment on above: Performed By: #### C MP, HSTROPN, BNP #### [facility] [address] [place] [address] Dr. Get Whitten Glucose [Mass/Vol] 135 mg/dL Critically high 74-106 [facility] Comment on above: Performed By: #### C MP, HSTROPN, BNP #### [facility] [address] [place] [address] Dr. Get Whitten Potassium [Moles/Vol] 3.6 mmol/L Normal 3.5-5.1 [facility] Comment on above: Performed By: #### C MP, HSTROPN, BNP #### [facility] [address] [place] [address] Dr. Get Whitten Protein [Mass/Vol] 6.5 g/dL Normal 6.4-8.2 [facility] Comment on above: Performed By: #### C MP, HSTROPN, BNP #### [facility] [address] [place] [address] Dr. Get Whitten Sodium [Moles/Vol] 130 mmol/L Critically low 136-145 [facility] Comment on above: Performed By: #### C MP, HSTROPN, BNP #### [facility] [address] [place] [address] Dr. Get Whitten Urea nitrogen [Mass/Vol] 7.0 mg/dL Normal 7.0-18.0 [facility] Comment on above: Performed By: #### C MP, HSTROPN, BNP #### [facility] [address] [place] [address] Dr. Get Whitten Urea nitrogen/Creatinin e [Mass ratio] 6.2 mg/mg Normal [facility] Comment on above: Performed By: #### C MP, HSTROPN, BNP #### [facility] [address] [place] [address] Dr. Get Whitten CARDIAC ANA 3-6on 2 CK [Catalytic activity/Vol] 51 U/L Normal 39-308 [facility] Comment on above: Performed By: #### C VDTBH #### [facility] [address] [place] [address] Dr. Get Whitten CK.MB [Mass/Vol] 1.89 ng/mL Normal <=3.60 [facility] Comment on above: Performed By: #### C VDTBH #### [facility] [address] [place] [address] Dr. Get Whitten HSTROP 14.4 pg/mL Normal 4.0-76.1 [facility] Comment on above: Result Comment: CUT- OFF POINTS HAVE BEEN ESTABLISHED BASED ON THE FOURTH UNIVERSAL DEFINITIONS OF MYOCARDIAL INFARCTION. THE UPPER REFERENCE LIMIT (URL) OF TROPONIN, DEFINED THE 99TH PERCENTILE OF cTnI DISTRIBUTION IN A REFERENCE POPULATION, HAS BEEN CONFIRMED THE DECISION THRESHOLD FOR [place] DIAGNOSIS. Performed By: #### C VDTBH #### [facility] [address] [place] [address] Dr. Get Whitten CARDIAC ANA ADMITon 022 CK [Catalytic activity/Vol] 128 U/L Normal 39-308 [facility] Comment on above: Performed By: #### C MP, HSTROPN, BNP #### [facility] [address] [place] [address] Dr. Get Whitten CK.MB [Mass/Vol] 2.22 ng/mL Normal <=3.60 [facility] Comment on above: Performed By: #### C MP, HSTROPN, BNP #### [facility] [address] [place] [address] Dr. Get Whitten HSTROP 11.2 pg/mL Normal 4.0-76.1 [facility] Comment on above: Result Comment: CUT- OFF POINTS HAVE BEEN ESTABLISHED BASED ON THE FOURTH UNIVERSAL DEFINITIONS OF MYOCARDIAL INFARCTION. THE UPPER REFERENCE LIMIT (URL) OF TROPONIN, DEFINED THE 99TH PERCENTILE OF cTnI DISTRIBUTION IN A REFERENCE POPULATION, HAS BEEN CONFIRMED THE DECISION THRESHOLD FOR [place] DIAGNOSIS. Performed By: #### C MP, HSTROPN, BNP #### [facility] [address] [place] [address] Dr. Get Whitten RAFA 40 ng/mL Normal 16-96 [facility] Comment on above: Performed By: #### C MP, HSTROPN, BNP #### [facility] [address] [place] [address] Dr. Get Whitten CBC AUTO DIFFon 03-29-2022 BASO # 0.1 103/ul Normal 0.0-0.1 [facility] Comment on above: Performed By: #### O SMOU #### [facility] [address] [place] [address] Dr. Get Whitten Basophils/100 WBC (Bld) 0.4 % Normal 0.2-2.0 [facility] Comment on above: Performed By: #### O SMOU #### [facility] [address] [place] [address] Dr. Get Whitten EO # 0.0 103/ul Normal 0.0-0.7 [facility] Comment on above: Performed By: #### O SMOU #### [facility] [address] [place] [address] Dr. Get Whitten Eosinophils/100 WBC (Bld) 0.1 % Critically low 0.9-7.0 [facility] Comment on above: Performed By: #### O SMOU #### [facility] [address] [place] [address] Dr. Get Whitten Erythrocyte distribution width (RBC) [Ratio] 12.8 % Normal 11.0-15.0 [facility] Comment on above: Performed By: #### O SMOU #### [facility] [address] [place] [address] Dr. Get Whitten Hematocrit (Bld) [Volume fraction] 42.1 % Normal 42.0-54.0 [facility] Comment on above: Performed By: #### O SMOU #### [facility] [address] [place] [address] Dr. Get Whitten Hemoglobin (Bld) [Mass/Vol] 15.3 g/dL Normal 14.0-18.0 [facility] Comment on above: Performed By: #### O SMOU #### [facility] [address] [place] [address] Dr. Get Whitten IG # 0.49 10e3/ul Critically high 0.00-0.03 [facility] Comment on above: Performed By: #### O SMOU #### [facility] [address] [place] [address] Dr. Get Whitten IG % 3.6 % Critically high 0.0-0.5 [facility] Comment on above: Performed By: #### O SMOU #### [facility] [address] [place] [address] Dr. Get Whitten LYMPH # 2.2 103/ul Normal 1.2-3.8 [facility] Comment on above: Performed By: #### O SMOU #### [facility] [address] [place] [address] Dr. Get Whitten Lymphocytes/100 WBC (Bld) 16.1 % Critically low 20.5-60.0 [facility] Comment on above: Performed By: #### O SMOU #### [facility] [address] [place] [address] Dr. Get Whitten MANUAL DIFF REQ NO Normal [facility] Comment on above: Performed By: #### O SMOU #### [facility] [address] [place] [address] Dr. Get Whitten MCH (RBC) [Entitic mass] 36.3 pg Critically high 25.9-34.0 [facility] Comment on above: Performed By: #### O SMOU #### [facility] [address] [place] [address] Dr. Get Whitten MCHC (RBC) [Mass/Vol] 36.3 g/dL Critically high 29.9-35.2 [facility] Comment on above: Performed By: #### O SMOU #### [facility] [address] [place] [address] Dr. Get Whitten MCV (RBC) [Entitic vol] 100.0 fL Critically high 80.0-94.0 [facility] Comment on above: Performed By: #### O SMOU #### [facility] [address] [place] [address] Dr. Get Whitten MONO # 1.1 103/ul Critically high 0.3-0.8 [facility] Comment on above: Performed By: #### O SMOU #### [facility] [address] [place] [address] Dr. Get Whitten Monocytes/100 WBC (Bld) 8.3 % Normal 1.7-12.0 [facility] Comment on above: Performed By: #### O SMOU #### [facility] [address] [place] [address] Dr. Get Whitten NEUT # 9.6 103/ul Critically high 1.4-6.5 [facility] Comment on above: Performed By: #### O SMOU #### [facility] [address] [place] [address] Dr. Get Whitten Neutrophils/100 WBC (Bld) 71.5 % Normal 43.0-75.0 [facility] Comment on above: Performed By: #### O SMOU #### [facility] [address] [place] [address] Dr. Get Whitten Platelet mean volume (Bld) [Entitic vol] 9.1 fL Critically low 9.5-13.5 [facility] Comment on above: Performed By: #### O SMOU #### [facility] [address] [place] [address] Dr. Get Whitten PLT 228 103/ul Normal 150-450 [facility] Comment on above: Performed By: #### O SMOU #### [facility] [address] [address] [address] Get Whitten RBC 4.21 106/ul Critically low 4.70-6.10 [facility] Comment on above: Performed By: #### O SMOU #### [facility] [address] [address] [address] Get Whitten WBC 13.4 103/ul Critically high 4.0-11.0 [facility] Comment on above: Performed By: #### O SMOU #### [facility] [address] [place] [address] Dr. Get Whitten Covid-19 PCR ([facility])on 03-16 SARS-CoV-2 (COVID-19) RNA ASHLEE+probe Ql (Unsp spec) Detected Critically abnormal NOT DETECTED [facility] Comment on above: Result Comment: This test is not yet approved or cleared by the [place] FDA. When there are no FDA-approved or cleared tests available, and other criteria are met, FDA can make tests available under an emergency access mechanism called an Emergency Use Authorization (EUA). The EUA for this test is supported by the [place] of Health and Human Service's declaration that [...] used). Performed By: #### C VDTBH #### [facility] [address], [place] [address] Dr. Get Whitten OSMOLALITYon 03-29-2022 Osmolality [Osmolality] 257 mosm/kg Critically low 275-295 [facility] Comment on above: Performed By: #### C VDTBH #### [facility] [address] [place] [address] Dr. Get Whitten OSMOLALITY URINEon Osmolality, Urine 251 mOsmol/kg Normal [facility] Comment on above: Result Comment: 24 h r : 300 - 900 Random: 50 - 1400 After 12hr fluid restriction: >850 Performed By: #### O SMOU #### [facility] [address] [place] [address] Dr. Get Whitten PROF CHEM 8 (BAS METB)on Anion gap [Moles/Vol] 17.1 mmol/L Normal [facility] Comment on above: Performed By: #### C MP, HSTROPN, BNP #### [facility] [address] [place] [address] Dr. Get Whitten Calcium [Mass/Vol] 8.4 mg/dL Critically low 8.5-10.1 [facility] Comment on above: Performed By: #### C MP, HSTROPN, BNP #### [facility] [address] [place] [address] Dr. Get Whitten Chloride [Moles/Vol] 98 mmol/L Normal 98-107 [facility] Comment on above: Performed By: #### C MP, HSTROPN, BNP #### [facility] [address] [place] [address] Dr. Get Whitten CO2 [Moles/Vol] 18.1 mmol/L Critically low 21.0-32.0 [facility] Comment on above: Performed By: #### C MP, HSTROPN, BNP #### [facility] [address] [place] [address] Dr. Get Whitten Creatinine [Mass/Vol] 0.98 mg/dL Normal 0.70-1.30 [facility] Comment on above: Performed By: #### C MP, HSTROPN, BNP #### [facility] [address] [place] [address] Dr. Get Whitten EGFR-AF NAMIBIAN >60 Normal >=60 [facility] Comment on above: Performed By: #### C MP, HSTROPN, BNP #### [facility] [address] [place] [address] Dr. Get Whitten EGFR-NON AF NAMIBIAN >60 Normal >=60 [facility] Comment on above: Performed By: #### C MP, HSTROPN, BNP #### [facility] [address] [address] [address] Get Whitten Glucose [Mass/Vol] 94 mg/dL Normal 74-106 [facility] Comment on above: Performed By: #### C MP, HSTROPN, BNP #### [facility] [address] [address] [address] Get Whitten Potassium [Moles/Vol] 4.2 mmol/L Normal 3.5-5.1 [facility] Comment on above: Performed By: #### C MP, HSTROPN, BNP #### [facility] [address] [place] [address] Dr. Get Whitten Sodium [Moles/Vol] 129 mmol/L Critically low 136-145 [facility] Comment on above: Performed By: #### C MP, HSTROPN, BNP #### [facility] [address] [place] [address] Dr. Get Whitten Urea nitrogen [Mass/Vol] 8.0 mg/dL Normal 7.0-18.0 [facility] Comment on above: Performed By: #### C MP, HSTROPN, BNP #### [facility] [address] [place] [address] Dr. Get Whitten Urea nitrogen/Creatinin e [Mass ratio] 8.2 mg/mg Normal [facility] Comment on above: Performed By: #### C MP, HSTROPN, BNP #### [facility] [address] [place] [address] Dr. Get Whitten XR CHEST 1 Von [...] GARETH ROMERO Date: 2022-03-29 18:30 Normal [facility] BNPon 03-28-2022 Natriuretic peptide B (Bld) [Mass/Vol] 401.0 pg/mL Normal <=900.0 [facility] Comment on above: Performed By: #### B CLEARANCE CUTTER, T7, CMP, TSH #### [facility] [address] [address] [address] Get Whitten CBC W MANUAL DIFFon 03-28-20 22 ATYPICAL LYMPH # Normal [facility] Comment on above: Performed By: #### B CLEARANCE CUTTER, T7, CMP, TSH #### [facility] [address] [address] [address] Get Whitten ATYPICAL LYMPH % Normal [facility] Comment on above: Performed By: #### B CLEARANCE CUTTER, T7, CMP, TSH #### [facility] [address] [place] [address] Dr. Get Whitten BAND # 0.3 103/ul Normal 0.0-0.3 [facility] Comment on above: Performed By: #### B CLEARANCE CUTTER, T7, CMP, TSH #### [facility] [address] [place] [address] Dr. Get Whitten BAND % 2 % Normal 0-5 [facility] Comment on above: Performed By: #### B CLEARANCE CUTTER, T7, CMP, TSH #### [facility] [address] [place] [address] Dr. Get Whitten BASOM # 0.00 103/ul Normal 0.00-0.10 [facility] Comment on above: Performed By: #### B CLEARANCE CUTTER, T7, CMP, TSH #### [facility] [address] [place] [address] Dr. Get Whitten BASOM % 0.0 % Critically low 0.2-2.0 [facility] Comment on above: Performed By: #### B CLEARANCE CUTTER, T7, CMP, TSH #### [facility] [address] [place] [address] Dr. Get Whitten BLAST # Normal [facility] Comment on above: Performed By: #### B CLEARANCE CUTTER, T7, CMP, TSH #### [facility] [address] [address] [address] Get Whitten BLAST % Normal [facility] Comment on above: Performed By: #### B CLEARANCE CUTTER, T7, CMP, TSH #### [facility] [address] [address] [address] Get Whitten CORRECTED WBC Normal 4.0-11.0 [facility] Comment on above: Performed By: #### B CLEARANCE CUTTER, T7, CMP, TSH #### [facility] [address] [address] [address] Get Whitten EOS # 0.00 103/ul Normal 0.00-0.70 [facility] Comment on above: Performed By: #### B CLEARANCE CUTTER, T7, CMP, TSH #### [facility] [address] [place] [address] Dr. Get Whitten EOS% 0.0 % Critically low 0.9-7.0 [facility] Comment on above: Performed By: #### B CLEARANCE CUTTER, T7, CMP, TSH #### [facility] [address] [place] [address] Dr. Get Whitten HCT 36.3 % Critically low 42.0-54.0 [facility] Comment on above: Performed By: #### B CLEARANCE CUTTER, T7, CMP, TSH #### [facility] [address] [place] [address] Dr. Get Whitten HGB 12.9 g/dl Critically low 14.0-18.0 [facility] Comment on above: Performed By: #### B CLEARANCE CUTTER, T7, CMP, TSH #### [facility] [address] [place] [address] Dr. Get Whitten HYPERSEG NEUT SLIGHT Normal [facility] Comment on above: Performed By: #### B CLEARANCE CUTTER, T7, CMP, TSH #### [facility] [address] [place] [address] Dr. Get Whitten LYMPHM # 0.89 103/ul Critically low 1.20-3.80 [facility] Comment on above: Performed By: #### B CLEARANCE CUTTER, T7, CMP, TSH #### [facility] [address] [place], [place] [id number] Dr. Get Whitten LYMPHM% 7.0 % Critically low 20.5-60.0 [facility] Comment on above: Performed By: #### B CLEARANCE CUTTER, T7, CMP, TSH #### [facility] [address] [place] [address] Dr. Get Whitten MCH 36.5 pg Critically high 25.9-34.0 [facility] Comment on above: Performed By: #### B CLEARANCE CUTTER, T7, CMP, TSH #### [facility] [address] [place] [address] Dr. Get Whitten MCHC 35.5 g/dl Critically high 29.9-35.2 [facility] Comment on above: Performed By: #### B CLEARANCE CUTTER, T7, CMP, TSH #### [facility] [address] [place] [address] Dr. Get Whitten MCV 102.8 fL Critically high 80.0-94.0 [facility] Comment on above: Performed By: #### B CLEARANCE CUTTER, T7, CMP, TSH #### [facility] [address] [place] [address] Dr. Get Whitten METAMYELOCYTE # Normal [facility] Comment on above: Performed By: #### B CLEARANCE CUTTER, T7, CMP, TSH #### [facility] [address] [place] [address] Dr. Get Whitten METAMYELOCYTE % Normal [facility] Comment on above: Performed By: #### B CLEARANCE CUTTER, T7, CMP, TSH #### [facility] [address] [place] [address] Dr. Get Whitten MONOM# 1.02 103/ul Critically high 0.30-0.80 [facility] Comment on above: Performed By: #### B CLEARANCE CUTTER, T7, CMP, TSH #### [facility] [address] [place] [address] Dr. Get Whitten MONOM% 8.0 % Normal 1.7-12.0 [facility] Comment on above: Performed By: #### B CLEARANCE CUTTER, T7, CMP, TSH #### [facility] [address] [address] [address] Get Whitten MPV 9.1 fL Critically low 9.5-13.5 [facility] Comment on above: Performed By: #### B CLEARANCE CUTTER, T7, CMP, TSH #### [facility] [address] [place] [address] Dr. Get Whitten MYELOCYTE # Normal [facility] Comment on above: Performed By: #### B CLEARANCE CUTTER, T7, CMP, TSH #### [facility] [address] [address] [address] Get Whitten MYELOCYTE % Normal [facility] Comment on above: Performed By: #### B CLEARANCE CUTTER, T7, CMP, TSH #### [facility] [address] [place] [address] Dr. Get Whitten NRBC Normal [facility] Comment on above: Performed By: #### B CLEARANCE CUTTER, T7, CMP, TSH #### [facility] [address] [place] [address] Dr. Get Whitten PLT 181 103/ul Normal 150-450 [facility] Comment on above: Performed By: #### B CLEARANCE CUTTER, T7, CMP, TSH #### [facility] [address] [address] [address] Get Whitten RBC 3.53 106/ul Critically low 4.70-6.10 [facility] Comment on above: Performed By: #### B CLEARANCE CUTTER, T7, CMP, TSH #### [facility] [address] [place] [address] Dr. Get Whitten RDW 12.7 % Normal 11.0-15.0 [facility] Comment on above: Performed By: #### B CLEARANCE CUTTER, T7, CMP, TSH #### [facility] [address] [place] [address] Dr. Get Whitten SEG # 10.54 103/ul Critically high 1.40-6.50 [facility] Comment on above: Performed By: #### B CLEARANCE CUTTER, T7, CMP, TSH #### [facility] [address] [address] [address] Get Whitten SEG % 83.0 % Critically high 43.0-75.0 [facility] Comment on above: Performed By: #### B CLEARANCE CUTTER, T7, CMP, TSH #### [facility] [address] [address] [address] Get Whitten WBC 12.7 103/ul Critically high 4.0-11.0 [facility] Comment on above: Performed By: #### B CLEARANCE CUTTER, T7, CMP, TSH #### [facility] [address] [place] [address] Dr. Get Whitten PROF 14(COMP METB)on 022 Albumin [Mass/Vol] 3.0 g/dL Critically low 3.4-5.0 [facility] Comment on above: Performed By: #### B CLEARANCE CUTTER, T7, CMP, TSH #### [facility] [address] [place] [address] Dr. Get Wihtten Albumin/Globulin [Mass ratio] 1.2 {ratio} Normal [facility] Comment on above: Performed By: #### B CLEARANCE CUTTER, T7, CMP, TSH #### [facility] [address] [place] [address] Dr. Get Whitten ALP [Catalytic activity/Vol] 39 U/L Critically low 46-116 [facility] Comment on above: Performed By: #### B CLEARANCE CUTTER, T7, CMP, TSH #### [facility] [address] [place] [address] Dr. Get Whitten ALT [Catalytic activity/Vol] 94 U/L Critically high 16-63 [facility] Comment on above: Performed By: #### B CLEARANCE CUTTER, T7, CMP, TSH #### [facility] [address] [address] [address] Get Whitten Anion gap [Moles/Vol] 11.4 mmol/L Normal [facility] Comment on above: Performed By: #### B CLEARANCE CUTTER, T7, CMP, TSH #### [facility] [address] [place] [address] Dr. Get Whitten AST [Catalytic activity/Vol] 37 U/L Normal 15-37 [facility] Comment on above: Performed By: #### B CLEARANCE CUTTER, T7, CMP, TSH #### [facility] [address] [address] [address] Get Whitten Bilirubin [Mass/Vol] 0.4 mg/dL Normal 0.2-1.0 [facility] Comment on above: Performed By: #### B CLEARANCE CUTTER, T7, CMP, TSH #### [facility] [address] [address] [address] Get Whitten Calcium [Mass/Vol] 7.9 mg/dL Critically low 8.5-10.1 [facility] Comment on above: Performed By: #### B CLEARANCE CUTTER, T7, CMP, TSH #### [facility] [address] [place] [address] Dr. Get Whitten Chloride [Moles/Vol] 102 mmol/L Normal 98-107 [facility] Comment on above: Performed By: #### B CLEARANCE CUTTER, T7, CMP, TSH #### [facility] [address] [place] [address] Dr. Get Whitten CO2 [Moles/Vol] 21.0 mmol/L Normal 21.0-32.0 [facility] Comment on above: Performed By: #### B CLEARANCE CUTTER, T7, CMP, TSH #### [facility] [address] [place] [address] Dr. Get Whitten Creatinine [Mass/Vol] 1.07 mg/dL Normal 0.70-1.30 [facility] Comment on above: Performed By: #### B CLEARANCE CUTTER, T7, CMP, TSH #### [facility] [address] [place] [address] Dr. Get Whitten EGFR-AF NAMIBIAN >86 Normal >=60 [facility] Comment on above: Performed By: #### B CLEARANCE CUTTER, T7, CMP, TSH #### [facility] [address] [place] [address] Dr. Get Whitten EGFR-NON AF NAMIBIAN >60 Normal >=60 [facility] Comment on above: Performed By: #### B CLEARANCE CUTTER, T7, CMP, TSH #### [facility] [address] [place] [address] Dr. Get Whitten Globulin (S) [Mass/Vol] 2.6 g/dL Normal [facility] Comment on above: Performed By: #### B CLEARANCE CUTTER, T7, CMP, TSH #### [facility] [address] [place] [address] Dr. Get Whitten Glucose [Mass/Vol] 132 mg/dL Critically high 74-106 [facility] Comment on above: Performed By: #### B CLEARANCE CUTTER, T7, CMP, TSH #### [facility] [address] [place] [address] Dr. Get Whitten Potassium [Moles/Vol] 3.4 mmol/L Critically low 3.5-5.1 [facility] Comment on above: Performed By: #### B CLEARANCE CUTTER, T7, CMP, TSH #### [facility] [address] [place] [address] Dr. Get Whitten Protein [Mass/Vol] 5.6 g/dL Critically low 6.4-8.2 [facility] Comment on above: Performed By: #### B CLEARANCE CUTTER, T7, CMP, TSH #### [facility] [address] [place] [address] Dr. Get Whitten Sodium [Moles/Vol] 131 mmol/L Critically low 136-145 [facility] Comment on above: Performed By: #### B CLEARANCE CUTTER, T7, CMP, TSH #### [facility] [address] [place] [address] Dr. Get Whitten Urea nitrogen [Mass/Vol] 16.0 mg/dL Normal 7.0-18.0 [facility] Comment on above: Performed By: #### B CLEARANCE CUTTER, T7, CMP, TSH #### [facility] [address] [place] [address] Dr. Get Whitten Urea nitrogen/Creatinin e [Mass ratio] 15.0 mg/mg Normal [facility] Comment on above: Performed By: #### B CLEARANCE CUTTER, T7, CMP, TSH #### [facility] [address] [place] [address] Dr. Get Whitten T3, TOTAL (TRIIODOTHYRONINE) on 03-28-2022 T3, TOTAL <20 Critically low 71-180 [facility] Comment on above: Performed By: #### C MP, HSTROPN, BNP #### [facility] [address] [place] [address] Dr. Get Whitten T4 [facility]Pon 03-28-2022 T4 [Mass/Vol] 0.7 ug/dL Invalid Interpretation Code 4.5-12.0 [facility] Comment on above: Performed By: #### C VDTBH #### [facility] [address] [place] [address] Dr. Get Whitten BNPon 03-27-2022 Natriuretic peptide B (Bld) [Mass/Vol] 340.0 pg/mL Normal <=900.0 [facility] Comment on above: Performed By: #### B CLEARANCE CUTTER, T7, CMP, TSH #### [facility] [address] [place] [address] Dr. Get Whitten CBC AUTO DIFFon 03-27-2022 BASO # 0.0 103/ul Normal 0.0-0.1 [facility] Comment on above: Performed By: #### C MP, HSTROPN, BNP #### [facility] [address] [place] [address] Dr. Get Whitten Basophils/100 WBC (Bld) 0.1 % Critically low 0.2-2.0 [facility] Comment on above: Performed By: #### C MP, HSTROPN, BNP #### [facility] [address] [place] [address] Dr. Get Whitten EO # 0.0 103/ul Normal 0.0-0.7 [facility] Comment on above: Performed By: #### C MP, HSTROPN, BNP #### [facility] [address] [place] [address] Dr. Get Whitten Eosinophils/100 WBC (Bld) 0.1 % Critically low 0.9-7.0 [facility] Comment on above: Performed By: #### C MP, HSTROPN, BNP #### [facility] [address] [place] [address] Dr. Get Whitten Erythrocyte distribution width (RBC) [Ratio] 12.7 % Normal 11.0-15.0 [facility] Comment on above: Performed By: #### C MP, HSTROPN, BNP #### [facility] [address] [place] [address] Dr. Get Whitten Hematocrit (Bld) [Volume fraction] 38.7 % Critically low 42.0-54.0 [facility] Comment on above: Performed By: #### C MP, HSTROPN, BNP #### [facility] [address] [place] [address] Dr. Get Whitten Hemoglobin (Bld) [Mass/Vol] 13.6 g/dL Critically low 14.0-18.0 [facility] Comment on above: Performed By: #### C MP, HSTROPN, BNP #### [facility] [address] [place] [address] Dr. Get Whitten IG # 1.95 10e3/ul Critically high 0.00-0.03 [facility] Comment on above: Performed By: #### C MP, HSTROPN, BNP #### [facility] [address] [place] [address] Dr. Get Whitten IG % 16.0 % Critically high 0.0-0.5 [facility] Comment on above: Performed By: #### C MP, HSTROPN, BNP #### [facility] [address] [place] [address] Dr. Get Whitten LYMPH # 1.7 103/ul Normal 1.2-3.8 [facility] Comment on above: Performed By: #### C MP, HSTROPN, BNP #### [facility] [address] [place] [address] Dr. Get Whitten Lymphocytes/100 WBC (Bld) 13.8 % Critically low 20.5-60.0 [facility] Comment on above: Performed By: #### C MP, HSTROPN, BNP #### [facility] [address] [place] [address] Dr. Get Whitten MANUAL DIFF REQ NO Normal [facility] Comment on above: Performed By: #### C MP, HSTROPN, BNP #### [facility] [address] [place] [address] Dr. Get Whitten MCH (RBC) [Entitic mass] 36.2 pg Critically high 25.9-34.0 [facility] Comment on above: Performed By: #### C MP, HSTROPN, BNP #### [facility] [address] [place] [address] Dr. Get Whitten MCHC (RBC) [Mass/Vol] 35.1 g/dL Normal 29.9-35.2 [facility] Comment on above: Performed By: #### C MP, HSTROPN, BNP #### [facility] [address] [place] [address] Dr. Get Whitten MCV (RBC) [Entitic vol] 102.9 fL Critically high 80.0-94.0 [facility] Comment on above: Performed By: #### C MP, HSTROPN, BNP #### [facility] [address] [place] [address] Dr. Get Whitten MONO # 0.4 103/ul Normal 0.3-0.8 [facility] Comment on above: Performed By: #### C MP, HSTROPN, BNP #### [facility] [address] [place] [address] Dr. Get Whitten Monocytes/100 WBC (Bld) 3.3 % Normal 1.7-12.0 [facility] Comment on above: Performed By: #### C MP, HSTROPN, BNP #### [facility] [address] [place] [address] Dr. Get Whitten NEUT # 8.2 103/ul Critically high 1.4-6.5 [facility] Comment on above: Performed By: #### C MP, HSTROPN, BNP #### [facility] [address] [place] [address] Dr. Get Whitten Neutrophils/100 WBC (Bld) 66.7 % Normal 43.0-75.0 [facility] Comment on above: Performed By: #### C MP, HSTROPN, BNP #### [facility] [address] [place] [address] Dr. Get hWitten Platelet mean volume (Bld) [Entitic vol] 9.2 fL Critically low 9.5-13.5 [facility] Comment on above: Performed By: #### C MP, HSTROPN, BNP #### [facility] [address] [address] [address] Get Whitten PLT 167 103/ul Normal 150-450 [facility] Comment on above: Performed By: #### C MP, HSTROPN, BNP #### [facility] [address] [place] [address] Dr. Get Whitten RBC 3.76 106/ul Critically low 4.70-6.10 [facility] Comment on above: Performed By: #### C MP, HSTROPN, BNP #### [facility] [address] [place] [address] Dr. Get Whitten WBC 12.2 103/ul Critically high 4.0-11.0 [facility] Comment on above: Performed By: #### C MP, HSTROPN, BNP #### [facility] [address] [place] [address] Dr. Get Whitten PROF 14(COMP METB)on 022 Albumin [Mass/Vol] 3.1 g/dL Critically low 3.4-5.0 [facility] Comment on above: Performed By: #### B CLEARANCE CUTTER, T7, CMP, TSH #### [facility] [address] [place] [address] Dr. Get Whitten Albumin/Globulin [Mass ratio] 1.1 {ratio} Normal [facility] Comment on above: Performed By: #### B CLEARANCE CUTTER, T7, CMP, TSH #### [facility] [address] [place] [address] Dr. Get Whitten ALP [Catalytic activity/Vol] 44 U/L Critically low 46-116 [facility] Comment on above: Performed By: #### B CLEARANCE CUTTER, T7, CMP, TSH #### [facility] [address] [place] [address] Dr. Get Whitten ALT [Catalytic activity/Vol] 87 U/L Critically high 16-63 [facility] Comment on above: Performed By: #### B CLEARANCE CUTTER, T7, CMP, TSH #### [facility] [address] [address] [address] Get Whitten Anion gap [Moles/Vol] 12.6 mmol/L Normal [facility] Comment on above: Performed By: #### B CLEARANCE CUTTER, T7, CMP, TSH #### [facility] [address] [address] [address] Get Whitten AST [Catalytic activity/Vol] 38 U/L Critically high 15-37 [facility] Comment on above: Performed By: #### B CLEARANCE CUTTER, T7, CMP, TSH #### [facility] [address] [place] [address] Dr. Get Whitten Bilirubin [Mass/Vol] 0.4 mg/dL Normal 0.2-1.0 [facility] Comment on above: Performed By: #### B CLEARANCE CUTTER, T7, CMP, TSH #### [facility] [address] [place] [address] Dr. Get Whitten Calcium [Mass/Vol] 7.7 mg/dL Critically low 8.5-10.1 [facility] Comment on above: Performed By: #### B CLEARANCE CUTTER, T7, CMP, TSH #### [facility] [address] [place] [address] Dr. Get Whitten Chloride [Moles/Vol] 97 mmol/L Critically low 98-107 [facility] Comment on above: Performed By: #### B CLEARANCE CUTTER, T7, CMP, TSH #### [facility] [address] [place] [address] Dr. Get Whitten CO2 [Moles/Vol] 22.1 mmol/L Normal 21.0-32.0 [facility] Comment on above: Performed By: #### B CLEARANCE CUTTER, T7, CMP, TSH #### [facility] [address] [place] [address] Dr. Get Whitten Creatinine [Mass/Vol] 1.17 mg/dL Normal 0.70-1.30 [facility] [facility] Comment on above: Performed By: #### B CLEARANCE CUTTER, T7, CMP, TSH #### [facility] [address] [address] [address] Get Whitten EGFR-AF NAMIBIAN >60 Normal >=60 [facility] Comment on above: Performed By: #### B CLEARANCE CUTTER, T7, CMP, TSH #### [facility] [address] [address] [address] Get Whitten EGFR-NON AF NAMIBIAN >60 Normal >=60 [facility] Comment on above: Performed By: #### B CLEARANCE CUTTER, T7, CMP, TSH #### [facility] [address] [place] [address] Dr. Get Whitten Globulin (S) [Mass/Vol] 2.7 g/dL Normal [facility] Comment on above: Performed By: #### B CLEARANCE CUTTER, T7, CMP, TSH #### [facility] [address] [place] [address] Dr. Get Whitten Glucose [Mass/Vol] 165 mg/dL Critically high 74-106 T [facility] Comment on above: Performed By: #### B CLEARANCE CUTTER, T7, CMP, TSH #### [facility] [address] [place] [address] Dr. Get Whitten Potassium [Moles/Vol] 3.7 mmol/L Normal 3.5-5.1 [facility] Comment on above: Performed By: #### B CLEARANCE CUTTER, T7, CMP, TSH #### [facility] [address] [address] [address] Get Whitten Protein [Mass/Vol] 5.8 g/dL Critically low 6.4-8.2 [facility] Comment on above: Performed By: #### B CLEARANCE CUTTER, T7, CMP, TSH #### [facility] [address] [place] [address] Dr. Get Whitten Sodium [Moles/Vol] 128 mmol/L Critically low 136-145 [facility] Comment on above: Performed By: #### B CLEARANCE CUTTER, T7, CMP, TSH #### [facility] [address] [address] [address] Get Whitten Urea nitrogen [Mass/Vol] 17.0 mg/dL Normal 7.0-18.0 [facility] Comment on above: Performed By: #### B CLEARANCE CUTTER, T7, CMP, TSH #### [facility] [address] [place] [address] Dr. Get Whitten Urea nitrogen/Creatinin e [Mass ratio] 14.5 mg/mg Normal [facility] Comment on above: Performed By: #### B CLEARANCE CUTTER, T7, CMP, TSH #### [facility] [address] [address] [address] Get Whitten SODIUM RANDOM URINEon 2021 Sodium (U) [Moles/Vol] 6 mmol/L Critically low 30-90 [facility] Comment on above: Performed By: #### B CLEARANCE CUTTER, T7, CMP, TSH #### [facility] [address] [place] [address] Dr. Get Whitten BNPon 03-26-2022 Natriuretic peptide B (Bld) [Mass/Vol] 472.0 pg/mL Normal <=900.0 [facility] Comment on above: Performed By: #### C MP, HSTROPN, BNP #### [facility] [address] [place] [address] Dr. Get Whitten CARDIAC ANA 3-6on 2 CK [Catalytic activity/Vol] 53 U/L Normal 39-308 [facility] Comment on above: Performed By: #### C VDTBH #### [facility] [address] [place] [address] Dr. Get Whitten CK.MB [Mass/Vol] 1.61 ng/mL Normal <=3.60 [facility] Comment on above: Performed By: #### C VDTBH #### [facility] [address] [place] [address] Dr. Get Whitten HSTROP 20.2 pg/mL Normal 4.0-76.1 [facility] Comment on above: Result Comment: CUT- OFF POINTS HAVE BEEN ESTABLISHED BASED ON THE FOURTH UNIVERSAL DEFINITIONS OF MYOCARDIAL INFARCTION. THE UPPER REFERENCE LIMIT (URL) OF TROPONIN, DEFINED THE 99TH PERCENTILE OF cTnI DISTRIBUTION IN A REFERENCE POPULATION, HAS BEEN CONFIRMED THE DECISION THRESHOLD FOR [place] DIAGNOSIS. Performed By: #### C VDTBH #### [facility] [address] [address] [address] Get Whitten CK [Catalytic activity/Vol] 40 U/L Normal 39-308 [facility] Comment on above: Performed By: #### B CLEARANCE CUTTER, T7, CMP, TSH #### [facility] [address] [address] [address] Get Whitten CK.MB [Mass/Vol] 1.53 ng/mL Normal <=3.60 [facility] Comment on above: Performed By: #### B CLEARANCE CUTTER, T7, CMP, TSH #### [facility] [address] [place] [address] Dr. Get Whitten HSTROP 23.6 pg/mL Normal 4.0-76.1 [facility] Comment on above: Result Comment: CUT- OFF POINTS HAVE BEEN ESTABLISHED BASED ON THE FOURTH UNIVERSAL DEFINITIONS OF MYOCARDIAL INFARCTION. THE UPPER REFERENCE LIMIT (URL) OF TROPONIN, DEFINED THE 99TH PERCENTILE OF cTnI DISTRIBUTION IN A REFERENCE POPULATION, HAS BEEN CONFIRMED THE DECISION THRESHOLD FOR [place] DIAGNOSIS. Performed By: #### B CLEARANCE CUTTER, T7, CMP, TSH #### [facility] [address] [place] [address] Dr. Get Whitten CBC W MANUAL DIFFon 03-26-20 22 ATYPICAL LYMPH # Normal [facility] Comment on above: Performed By: #### C MP, HSTROPN, BNP #### [facility] [address] [place] [address] Dr. Get Whitten ATYPICAL LYMPH % Normal [facility] Comment on above: Performed By: #### C MP, HSTROPN, BNP #### [facility] [address] [address] [address] Get Whitten BAND # 0.5 103/ul Critically high 0.0-0.3 [facility] Comment on above: Performed By: #### C MP, HSTROPN, BNP #### [facility] [address] [place] [address] Dr. Get Whitten BAND % 4 % Normal 0-5 [facility] Comment on above: Performed By: #### C MP, HSTROPN, BNP #### [facility] [address] [address] [address] Get SAHAOM # 0.00 103/ul Normal 0.00-0.10 [facility] Comment on above: Performed By: #### C MP, HSTROPN, BNP #### [facility] [address] [address] [address] Get Whitten BASOM % 0.0 % Critically low 0.2-2.0 [facility] Comment on above: Performed By: #### C MP, HSTROPN, BNP #### [facility] [address] [place] [address] Dr. Get Whitten BLAST # Normal [facility] Comment on above: Performed By: #### C MP, HSTROPN, BNP #### [facility] [address] [place] [address] Dr. Get Whitten BLAST % Normal [facility] Comment on above: Performed By: #### C MP, HSTROPN, BNP #### [facility] [address] [address] [address] Get Whitten CORRECTED WBC Normal 4.0-11.0 [facility] Comment on above: Performed By: #### C MP, HSTROPN, BNP #### [facility] [address] [place] [address] Dr. Get Whitten EOS # 0.00 103/ul Normal 0.00-0.70 [facility] Comment on above: Performed By: #### C MP, HSTROPN, BNP #### [facility] [address] [place] [address] Dr. Get Whitten EOS% 0.0 % Critically low 0.9-7.0 [facility] Comment on above: Performed By: #### C MP, HSTROPN, BNP #### [facility] [address] [place] [address] Dr. Get Whitten HCT 44.0 % Normal 42.0-54.0 [facility] Comment on above: Performed By: #### C MP, HSTROPN, BNP #### [facility] [address] [address] [address] Get Whitten HGB 15.8 g/dl Normal 14.0-18.0 [facility] Comment on above: Performed By: #### C MP, HSTROPN, BNP #### [facility] [address] [address] [address] Get Whitten HYPERSEG NEUT 2+ Normal [facility] Comment on above: Performed By: #### C MP, HSTROPN, BNP #### [facility] [address] [address] [address] Get Whitten LYMPHM # 1.56 103/ul Normal 1.20-3.80 [facility] Comment on above: Performed By: #### C MP, HSTROPN, BNP #### [facility] [address] [place] [address] Dr. Get Whitten LYMPHM% 13.0 % Critically low 20.5-60.0 [facility] Comment on above: Performed By: #### C MP, HSTROPN, BNP #### [facility] [address] [place] [address] Dr. Get Whitten MCH 36.2 pg Critically high 25.9-34.0 [facility] Comment on above: Performed By: #### C MP, HSTROPN, BNP #### [facility] [address] [address] [address] Get Whitten MCHC 35.9 g/dl Critically high 29.9-35.2 [facility] Comment on above: Performed By: #### C MP, HSTROPN, BNP #### [facility] [address] [place] [address] Dr. Get Whitten MCV 100.7 fL Critically high 80.0-94.0 [facility] Comment on above: Performed By: #### C MP, HSTROPN, BNP #### [facility] [address] [place] [address] Dr. Get Whitten METAMYELOCYTE # Normal [facility] Comment on above: Performed By: #### C MP, HSTROPN, BNP #### [facility] [address] [place] [address] Dr. Get Whitten METAMYELOCYTE % Normal [facility] Comment on above: Performed By: #### C MP, HSTROPN, BNP #### [facility] [address] [place] [address] Dr. Get Whitten MONOM# 1.08 103/ul Critically high 0.30-0.80 [facility] Comment on above: Performed By: #### C MP, HSTROPN, BNP #### [facility] [address] [place] [address] Dr. Get Whitten MONOM% 9.0 % Normal 1.7-12.0 [facility] Comment on above: Performed By: #### C MP, HSTROPN, BNP #### [facility] [address] [place] [address] Dr. Get Whitten MPV 10.3 fL Normal 9.5-13.5 [facility] Comment on above: Performed By: #### C MP, HSTROPN, BNP #### [facility] [address] [place] [address] Dr. Get Whitten MYELOCYTE # Normal [facility] Comment on above: Performed By: #### C MP, HSTROPN, BNP #### [facility] [address] [place] [address] Dr. Get Whitten MYELOCYTE % Normal [facility] Comment on above: Performed By: #### C MP, HSTROPN, BNP #### [facility] [address] [place] [address] Dr. Get Whitten NRBC Normal [facility] Comment on above: Performed By: #### C MP, HSTROPN, BNP #### [facility] [address] [place] [address] Dr. Get Whitten PLT 111 103/ul Critically low 150-450 [facility] Comment on above: Performed By: #### C MP, HSTROPN, BNP #### [facility] [address] [place] [address] Dr. Get Whitten RBC 4.37 106/ul Critically low 4.70-6.10 [facility] Comment on above: Performed By: #### C MP, HSTROPN, BNP #### [facility] [address] [place] [address] Dr. Get Whitten RDW 12.4 % Normal 11.0-15.0 [facility] Comment on above: Performed By: #### C MP, HSTROPN, BNP #### [facility] [address] [place] [address] Dr. Get Whitten SEG # 8.88 103/ul Critically high 1.40-6.50 [facility] Comment on above: Performed By: #### C MP, HSTROPN, BNP #### [facility] [address] [place] [address] Dr. Get Whitten SEG % 74.0 % Normal 43.0-75.0 [facility] Comment on above: Performed By: #### C MP, HSTROPN, BNP #### [facility] [address] [place] [address] Dr. Get Whitten WBC 12.0 103/ul Critically high 4.0-11.0 [facility] Comment on above: Performed By: #### C MP, HSTROPN, BNP #### [facility] [address] [place] [address] Dr. Get Whitten CRPon 03-26-2022 CRP [Mass/Vol] mg/L Normal <=1.0 [facility] Comment on above: Performed By: #### C MP, HSTROPN, BNP #### [facility] [address] [place] [address] Dr. Get Whitten Covid-19 [facility]16 SARS-CoV-2 (COVID-19) RNA ASHLEE+probe Ql (Unsp spec) Detected Critically abnormal NOT DETECTED [facility] Comment on above: Result Comment: This test is not yet approved or cleared by the [place] FDA. When there are no FDA-approved or cleared tests available, and other criteria are met, FDA can make tests available under an emergency access mechanism called an Emergency Use Authorization (EUA). The EUA for this test is supported by the [place] Operator of Health and Human Service's declaration that [...] used). Performed By: #### C VDTBH #### [facility] [address] [place] [address] Dr. Get Whitten LACTATE/LACTIC ACIDon 2021 Lactate [Moles/Vol] 0.4 mmol/L Normal 0.4-1.9 [facility] Comment on above: Performed By: #### C MP, HSTROPN, BNP #### [facility] [address] [place] [address] Dr. Get Whitten NAon 03-26-2022 Sodium [Moles/Vol] 126 mmol/L Critically low 136-145 [facility] Comment on above: Performed By: #### B CLEARANCE CUTTER, T7, CMP, TSH #### [facility] [address] [place] [address] Dr. Get Whitten PROF 14(COMP METB)on 022 Albumin [Mass/Vol] 3.6 g/dL Normal 3.4-5.0 [facility] Comment on above: Performed By: #### C MP, HSTROPN, BNP #### [facility] [address] [place] [address] Dr. Get Whitten Albumin/Globulin [Mass ratio] 1.0 {ratio} Normal [facility] Comment on above: Performed By: #### C MP, HSTROPN, BNP #### [facility] [address] [place] [address] Dr. Get Whitten ALP [Catalytic activity/Vol] 49 U/L Normal 46-116 [facility] Comment on above: Performed By: #### C MP, HSTROPN, BNP #### [facility] [address] [address] [address] Get Whitten ALT [Catalytic activity/Vol] 80 U/L Critically high 16-63 [facility] Comment on above: Performed By: #### C MP, HSTROPN, BNP #### [facility] [address] [place] [address] Dr. Get Whitten Anion gap [Moles/Vol] 16.2 mmol/L Normal [facility] Comment on above: Performed By: #### C MP, HSTROPN, BNP #### [facility] [address] [place] [address] Dr. Get Whitten AST [Catalytic activity/Vol] 42 U/L Critically high 15-37 [facility] Comment on above: Performed By: #### C MP, HSTROPN, BNP #### [facility] [address] [place] [address] Dr. Get Whitten Bilirubin [Mass/Vol] 0.7 mg/dL Normal 0.2-1.0 [facility] Comment on above: Performed By: #### C MP, HSTROPN, BNP #### [facility] [address] [place] [address] Dr. Get Whitten Calcium [Mass/Vol] 8.4 mg/dL Critically low 8.5-10.1 [facility] Comment on above: Performed By: #### C MP, HSTROPN, BNP #### [facility] [address] [place] [address] Dr. Get Whitten Chloride [Moles/Vol] 91 mmol/L Critically low 98-107 [facility] Comment on above: Performed By: #### C MP, HSTROPN, BNP #### [facility] [address] [place] [address] Dr. Get Whitten CO2 [Moles/Vol] 19.8 mmol/L Critically low 21.0-32.0 [facility] Comment on above: Performed By: #### C MP, HSTROPN, BNP #### [facility] [address] [address] [address] Get Whitten Creatinine [Mass/Vol] 1.11 mg/dL Normal 0.70-1.30 [facility] Comment on above: Performed By: #### C MP, HSTROPN, BNP #### [facility] [address] [address] [address] Get Whitten EGFR-AF NAMIBIAN >60 Normal >=60 [facility] Comment on above: Performed By: #### C MP, HSTROPN, BNP #### [facility] [address] [address] [address] Get Whitten EGFR-NON AF NAMIBIAN >60 Normal >=60 [facility] Comment on above: Performed By: #### C MP, HSTROPN, BNP #### [facility] [address] [address] [address] Get Whitten Globulin (S) [Mass/Vol] 3.6 g/dL Normal [facility] Comment on above: Performed By: #### C MP, HSTROPN, BNP #### [facility] [address] [address] [address] Get Whitten Glucose [Mass/Vol] 109 mg/dL Critically high 74-106 [facility] Comment on above: Performed By: #### C MP, HSTROPN, BNP #### [facility] [address] [address] [address] Get Whitten Potassium [Moles/Vol] 4.0 mmol/L Normal 3.5-5.1 [facility] Comment on above: Performed By: #### C MP, HSTROPN, BNP #### [facility] [address] [address] [address] Get Whitten Protein [Mass/Vol] 7.2 g/dL Normal 6.4-8.2 [facility] Comment on above: Performed By: #### C MP, HSTROPN, BNP #### [facility] [address] [address] [address] Get Whitten Sodium [Moles/Vol] 123 mmol/L Critically low 136-145 [facility] Comment on above: Performed By: #### C MP, HSTROPN, BNP #### [facility] [address] [address] [address] Get Whitten Urea nitrogen [Mass/Vol] 15.0 mg/dL Normal 7.0-18.0 [facility] Comment on above: Performed By: #### C MP, HSTROPN, BNP #### [facility] [address] [address] [address] Get Whitten Urea nitrogen/Creatinin e [Mass ratio] 13.5 mg/mg Normal [facility] Comment on above: Performed By: #### C MP, HSTROPN, BNP #### [facility] [address] [place] [address] Dr. Get Whitten SPUTUM GRAM STAINon 03-26-20 22 COMMENTS NO ORGANISMS OBSERVED Normal [facility] Comment on above: Performed By: #### C VDTBH #### [facility] [address] [place] [address] Dr. Get Whitten DIPHTHEROIDS Normal [facility] Comment on above: Performed By: #### C VDTBH #### [facility] [address] [address] [address] Gte Whitten EPITHELIALS <25 Normal [facility] Comment on above: Performed By: #### C VDTBH #### [facility] [address] [place] [address] Dr. Get Whitten FUNGAL ELEMENTS Normal [facility] Comment on above: Performed By: #### C VDTBH #### [facility] [address] [place] [address] Dr. Get Whitten GRAM NEG BACILLI Normal [facility] Comment on above: Performed By: #### C VDTBH #### [facility] [address] [place] [address] Dr. Get WATSON NEG DIPPLOCOCCI Normal [facility] Comment on above: Performed By: #### C VDTBH #### [facility] [address] [place] [address] Dr. Yilan Whitten GRAM POS BACILLI Normal [facility] Comment on above: Performed By: #### C VDTBH #### [facility] [address] [address] [address] Get Whitten GRAM POSITIVE COCCI Normal [facility] Comment on above: Performed By: #### C VDTBH #### [facility] [address] [place], [place] [address] Dr. Get Whitten WBC (Bld) [#/Vol] 10*3/uL Normal [facility] Comment on above: Performed By: #### C VDTBH #### [facility] [address] [address] [address] Get Whitten TROPONIN, HIGH SENSITIVITYon 03-26-2022 HSTROP 19.8 pg/mL Normal 4.0-76.1 [facility] Comment on above: Result Comment: CUT- OFF POINTS HAVE BEEN ESTABLISHED BASED ON THE FOURTH UNIVERSAL DEFINITIONS OF MYOCARDIAL INFARCTION. THE UPPER REFERENCE LIMIT (URL) OF TROPONIN, DEFINED THE 99TH PERCENTILE OF cTnI DISTRIBUTION IN A REFERENCE POPULATION, HAS BEEN CONFIRMED THE DECISION THRESHOLD FOR [place] DIAGNOSIS. Performed By: #### C MP, HSTROPN, BNP #### [facility] [address] [address] [address] Get Whitten TSHon 03-26-2022 TSH 51.305 uIU/mL Critically high 0.358-3.740 [facility] Comment on above: Performed By: #### C MP, HSTROPN, BNP #### [facility] [address] [id number] Get Whitten XR CHEST 1 Von 03-26-2022 XR CHEST 1 V EXAM: XR CHEST 1 V HISTORY: COUGH COMPARISON: Chest x-ray 03/23/2022 TECHNIQUE: Single frontal view chest x-ray FINDINGS: No lobar consolidation, large pleural effusions, pneumothorax, or acute bony abnormality. Cardiac size is unremarkable. IMPRESSION: No radiographic evidence for acute chest abnormality. Electronically authenticated by: JANKI STEEL Date: 2022-03-26 04:14 Normal [facility] BNPon 03-23-2022 Natriuretic peptide B (Bld) [Mass/Vol] 385.0 pg/mL Normal <=900.0 [facility] Comment on above: Performed By: #### C MP, HSTROPN, BNP #### [facility] [address] [address] [address] Get Whitten CBC W MANUAL DIFFon 03-23-20 22 ATYPICAL LYMPH # Normal [facility] Comment on above: Performed By: #### B CLEARANCE CUTTER, T7, CMP, TSH #### [facility] [address] [address] [address] Get Whitten ATYPICAL LYMPH % Normal [facility] Comment on above: Performed By: #### B CLEARANCE CUTTER, T7, CMP, TSH #### [facility] [address] [place] [address] Dr. Get Whitten BAND # 0.2 103/ul Normal 0.0-0.3 [facility] Comment on above: Performed By: #### B CLEARANCE CUTTER, T7, CMP, TSH #### [facility] [address] [place] [address] Dr. Get Whitten BAND % 2 % Normal 0-5 [facility] Comment on above: Performed By: #### B CLEARANCE CUTTER, T7, CMP, TSH #### [facility] [address] [place] [address] Dr. Get Whitten BASOM # 0.00 103/ul Normal 0.00-0.10 [facility] Comment on above: Performed By: #### B CLEARANCE CUTTER, T7, CMP, TSH #### [facility] [address] [address] [address] Get Whitten BASOM % 0.0 % Critically low 0.2-2.0 [facility] Comment on above: Performed By: #### B CLEARANCE CUTTER, T7, CMP, TSH #### [facility] [address] [address] [address] Get Whitten BLAST # Normal [facility] Comment on above: Performed By: #### B CLEARANCE CUTTER, T7, CMP, TSH #### [facility] [address] [place] [address] Dr. Get Whitten BLAST % Normal [facility] Comment on above: Performed By: #### B CLEARANCE CUTTER, T7, CMP, TSH #### [facility] [address] [address] [address] Get Whitten CORRECTED WBC Normal 4.0-11.0 [facility] Comment on above: Performed By: #### B CLEARANCE CUTTER, T7, CMP, TSH #### [facility] [address] [address] [address] Get Whitten EOS # 0.00 103/ul Normal 0.00-0.70 [facility] Comment on above: Performed By: #### B CLEARANCE CUTTER, T7, CMP, TSH #### [facility] [address] [address] [address] Get Whitten EOS% 0.0 % Critically low 0.9-7.0 [facility] Comment on above: Performed By: #### B CLEARANCE CUTTER, T7, CMP, TSH #### [facility] [address] [place] [address] Dr. Get Whitten HCT 45.6 % Normal 42.0-54.0 [facility] Comment on above: Performed By: #### B CLEARANCE CUTTER, T7, CMP, TSH #### [facility] [address] [address] [address] Get Whitten HGB 16.3 g/dl Normal 14.0-18.0 [facility] Comment on above: Performed By: #### B CLEARANCE CUTTER, T7, CMP, TSH #### [facility] [address] [address] [address] Get Whitten LYMPHM # 0.89 103/ul Critically low 1.20-3.80 [facility] Comment on above: Performed By: #### B CLEARANCE CUTTER, T7, CMP, TSH #### [facility] [address] [address] [address] Get Whitten LYMPHM% 9.0 % Critically low 20.5-60.0 [facility] Comment on above: Performed By: #### B CLEARANCE CUTTER, T7, CMP, TSH #### [facility] [address] [address] [address] Get Whitten MCH 36.5 pg Critically high 25.9-34.0 [facility] Comment on above: Performed By: #### B CLEARANCE CUTTER, T7, CMP, TSH #### [facility] [address] [address] [address] Get Whitten MCHC 35.7 g/dl Critically high 29.9-35.2 [facility] Comment on above: Performed By: #### B CLEARANCE CUTTER, T7, CMP, TSH #### [facility] [address] [address] [address] Get Whitten MCV 102.0 fL Critically high 80.0-94.0 [facility] Comment on above: Performed By: #### B CLEARANCE CUTTER, T7, CMP, TSH #### [facility] [address] [address] [address] Get Whitten METAMYELOCYTE # Normal [facility] Comment on above: Performed By: #### B CLEARANCE CUTTER, T7, CMP, TSH #### [facility] [address] [address] [address] Get Whitten METAMYELOCYTE % Normal [facility] [facility] Comment on above: Performed By: #### B CLEARANCE CUTTER, T7, CMP, TSH #### [facility] [address] [address] [address] Get Whitten MONOM# 0.89 103/ul Critically high 0.30-0.80 [facility] Comment on above: Performed By: #### B CLEARANCE CUTTER, T7, CMP, TSH #### [facility] [address] [address] [address] Get Whitten MONOM% 9.0 % Normal 1.7-12.0 [facility] Comment on above: Performed By: #### B CLEARANCE CUTTER, T7, CMP, TSH #### [facility] [address] [address] [address] Get Whitten MPV 8.8 fL Critically low 9.5-13.5 [facility] Comment on above: Performed By: #### B CLEARANCE CUTTER, T7, CMP, TSH #### [facility] [address] [address] [address] Get Whitten MYELOCYTE # Normal [facility] Comment on above: Performed By: #### B CLEARANCE CUTTER, T7, CMP, TSH #### [facility] [address] [address] [address] Get Whitten MYELOCYTE % Normal [facility] Comment on above: Performed By: #### B CLEARANCE CUTTER, T7, CMP, TSH #### [facility] [address] [address] [address] Get Whitten NRBC Normal [facility] Comment on above: Performed By: #### B CLEARANCE CUTTER, T7, CMP, TSH #### [facility] [address] [address] [address] Get Whitten PLT 156 103/ul Normal 150-450 [facility] Comment on above: Performed By: #### B CLEARANCE CUTTER, T7, CMP, TSH #### [facility] [address] [address] [address] Get Whitten RBC 4.47 106/ul Critically low 4.70-6.10 [facility] Comment on above: Performed By: #### B CLEARANCE CUTTER, T7, CMP, TSH #### [facility] [address] [place] [address] Dr. Get Whitten RDW 12.4 % Normal 11.0-15.0 [facility] Comment on above: Performed By: #### B CLEARANCE CUTTER, T7, CMP, TSH #### [facility] [address] [place] [address] Dr. Get Whitten SEG # 7.92 103/ul Critically high 1.40-6.50 [facility] Comment on above: Performed By: #### B CLEARANCE CUTTER, T7, CMP, TSH #### [facility] [address] [place] [address] Dr. Get Whitten SEG % 80.0 % Critically high 43.0-75.0 [facility] Comment on above: Performed By: #### B CLEARANCE CUTTER, T7, CMP, TSH #### [facility] [address] [place] [address] Dr. Get Whitten WBC 9.9 103/ul Normal 4.0-11.0 [facility] Comment on above: Performed By: #### B CLEARANCE CUTTER, T7, CMP, TSH #### [facility] [address] [place] [address] Dr. Get Whitten PROF 14(COMP METB)on 022 Albumin [Mass/Vol] 3.9 g/dL Normal 3.4-5.0 [facility] Comment on above: Performed By: #### C MP, HSTROPN, BNP #### [facility] [address] [place] [address] Dr. Get Whitten Albumin/Globulin [Mass ratio] 1.1 {ratio} Normal [facility] Comment on above: Performed By: #### C MP, HSTROPN, BNP #### [facility] [address] [place] [address] Dr. Get Whitten ALP [Catalytic activity/Vol] 55 U/L Normal 46-116 [facility] Comment on above: Performed By: #### C MP, HSTROPN, BNP #### [facility] [address] [place] [address] Dr. Get Whitten ALT [Catalytic activity/Vol] 67 U/L Critically high 16-63 [facility] Comment on above: Performed By: #### C MP, HSTROPN, BNP #### [facility] [address] [place] [address] Dr. Get Whitten Anion gap [Moles/Vol] 13.2 mmol/L Normal [facility] Comment on above: Performed By: #### C MP, HSTROPN, BNP #### [facility] [address] [place] [address] Dr. Get Whitten AST [Catalytic activity/Vol] 20 U/L Normal 15-37 [facility] Comment on above: Performed By: #### C MP, HSTROPN, BNP #### [facility] [address] [place] [address] Dr. Get Whitten Bilirubin [Mass/Vol] 0.4 mg/dL Normal 0.2-1.0 [facility] Comment on above: Performed By: #### C MP, HSTROPN, BNP #### [facility] [address] [place] [address] Dr. Get Whitten Calcium [Mass/Vol] 8.5 mg/dL Normal 8.5-10.1 [facility] Comment on above: Performed By: #### C MP, HSTROPN, BNP #### [facility] [address] [address] [address] Get Whitten Chloride [Moles/Vol] 93 mmol/L Critically low 98-107 [facility] Comment on above: Performed By: #### C MP, HSTROPN, BNP #### [facility] [address] [address] [address] Get Whitten CO2 [Moles/Vol] 22.6 mmol/L Normal 21.0-32.0 [facility] Comment on above: Performed By: #### C MP, HSTROPN, BNP #### [facility] [address] [place] [address] Dr. Get Whitten Creatinine [Mass/Vol] 1.26 mg/dL Normal 0.70-1.30 [facility] Comment on above: Performed By: #### C MP, HSTROPN, BNP #### [facility] [address] [place] [address] Dr. Get Whitten EGFR-AF NAMIBIAN >60 Normal >=60 [facility] Comment on above: Performed By: #### C MP, HSTROPN, BNP #### [facility] [address] [place] [address] Dr. Get Whitten EGFR-NON AF NAMIBIAN 59 mL/min/1.73m2 Critically low >=60 [facility] Comment on above: Performed By: #### C MP, HSTROPN, BNP #### [facility] [address] [address] [address] Get Whitten Globulin (S) [Mass/Vol] 3.5 g/dL Normal [facility] Comment on above: Performed By: #### C MP, HSTROPN, BNP #### [facility] [address] [address] [address] Get Whitten Glucose [Mass/Vol] 144 mg/dL Critically high 74-106 [facility] [place] [facility] Comment on above: Performed By: #### C MP, HSTROPN, BNP #### [facility] [address] [place] [address] Dr. Get Whitten Potassium [Moles/Vol] 3.9 mmol/L Normal 3.5-5.1 [facility] Comment on above: Performed By: #### C MP, HSTROPN, BNP #### [facility] [address] [place] [address] Dr. Get Whitten Protein [Mass/Vol] 7.4 g/dL Normal 6.4-8.2 [facility] Comment on above: Performed By: #### C MP, HSTROPN, BNP #### [facility] [address] [place] [address] Dr. Get Whitten Sodium [Moles/Vol] 125 mmol/L Critically low 136-145 [facility] Comment on above: Performed By: #### C MP, HSTROPN, BNP #### [facility] [address] [place] [address] Dr. Get Whitten Urea nitrogen [Mass/Vol] 14.0 mg/dL Normal 7.0-18.0 [facility] Comment on above: Performed By: #### C MP, HSTROPN, BNP #### [facility] [address] [place] [address] Dr. Get Whitten Urea nitrogen/Creatinin e [Mass ratio] 11.1 mg/mg Normal [facility] Comment on above: Performed By: #### C MP, HSTROPN, BNP #### [facility] [address] [place] [address] Dr. Get Whitten TROPONIN, HIGH SENSITIVITYon 03-23-2022 HSTROP 6.6 pg/mL Normal 4.0-76.1 [facility] Comment on above: Result Comment: CUT- OFF POINTS HAVE BEEN ESTABLISHED BASED ON THE FOURTH UNIVERSAL DEFINITIONS OF MYOCARDIAL INFARCTION. THE UPPER REFERENCE LIMIT (URL) OF TROPONIN, DEFINED THE 99TH PERCENTILE OF cTnI DISTRIBUTION IN A REFERENCE POPULATION, HAS BEEN CONFIRMED THE DECISION THRESHOLD FOR [place] DIAGNOSIS. Performed By: #### C MP, HSTROPN, BNP #### [facility] [address], [place] [address] Dr. Get Whitten XR CHEST 1 Von [...] SHEN SOSA Date: 2022-03-23 15:02 Normal [facility] Covid-19 PCR (CVDTBH)on SARS-CoV-2 (COVID-19) RNA ASHLEE+probe Ql (Unsp spec) Detected Critically abnormal NOT DETECTED [facility] Comment on above: Result Comment: This test is not yet approved or cleared by the [place] FDA. When there are no FDA-approved or cleared tests available, and other criteria are met, FDA can make tests available under an emergency access mechanism called an Emergency Use Authorization (EUA). The EUA for this test is supported by the [employer] Operator of Health and Human Service's declaration that [...] By: #### C MP, HSTROPN, BNP #### [facility] [address], [place] [address] Dr. Get Whitten CBC AUTO DIFFon 01-24-2022 BASO # 0.1 103/ul Normal 0.0-0.1 [facility] Comment on above: Performed By: #### B CLEARANCE CUTTER, T7, CMP, TSH #### [facility] [address] [place] [address] Dr. Get Whitten Basophils/100 WBC (Bld) 0.6 % Normal 0.2-2.0 [facility] Comment on above: Performed By: #### B CLEARANCE CUTTER, T7, CMP, TSH #### [facility] [address] [place] [address] Dr. Get Whitten EO # 0.0 103/ul Normal 0.0-0.7 [facility] Comment on above: Performed By: #### B CLEARANCE CUTTER, T7, CMP, TSH #### [facility] [address] [place] [address] Dr. Get Whitten Eosinophils/100 WBC (Bld) 0.1 % Critically low 0.9-7.0 [facility] Comment on above: Performed By: #### B CLEARANCE CUTTER, T7, CMP, TSH #### [facility] [address] [place] [address] Dr. Get Whitten Erythrocyte distribution width (RBC) [Ratio] 13.1 % Normal 11.0-15.0 [facility] Comment on above: Performed By: #### B CLEARANCE CUTTER, T7, CMP, TSH #### [facility] [address] [place] [address] Dr. Get Whitten Hematocrit (Bld) [Volume fraction] 41.0 % Critically low 42.0-54.0 [facility] Comment on above: Performed By: #### B CLEARANCE CUTTER, T7, CMP, TSH #### [facility] [address] [place] [address] Dr. Get Whitten Hemoglobin (Bld) [Mass/Vol] 14.3 g/dL Normal 14.0-18.0 [facility] Comment on above: Performed By: #### B CLEARANCE CUTTER, T7, CMP, TSH #### [facility] [address] [place] [address] Dr. Get Whitten IG # 0.25 10e3/ul Critically high 0.00-0.03 [facility] Comment on above: Performed By: #### B CLEARANCE CUTTER, T7, CMP, TSH #### [facility] [address] [place] [address] Dr. Get Whitten IG % 2.3 % Critically high 0.0-0.5 [facility] Comment on above: Performed By: #### B CLEARANCE CUTTER, T7, CMP, TSH #### [facility] [address] [place] [address] Dr. Get Whitten LYMPH # 2.4 103/ul Normal 1.2-3.8 [facility] Comment on above: Performed By: #### B CLEARANCE CUTTER, T7, CMP, TSH #### [facility] [address] [place] [address] Dr. Get Whitten Lymphocytes/100 WBC (Bld) 21.7 % Normal 20.5-60.0 [facility] Comment on above: Performed By: #### B CLEARANCE CUTTER, T7, CMP, TSH #### [facility] [address] [place] [address] Dr. Get Whitten MANUAL DIFF REQ NO Normal [facility] Comment on above: Performed By: #### B CLEARANCE CUTTER, T7, CMP, TSH #### [facility] [address] [place] [address] Dr. Get Whitten MCH (RBC) [Entitic mass] 37.0 pg Critically high 25.9-34.0 [facility] Comment on above: Performed By: #### B CLEARANCE CUTTER, T7, CMP, TSH #### [facility] [address] [place] [address] Dr. Get Whitten MCHC (RBC) [Mass/Vol] 34.9 g/dL Normal 29.9-35.2 [facility] Comment on above: Performed By: #### B CLEARANCE CUTTER, T7, CMP, TSH #### [facility] [address] [place] [address] Dr. Get Whitten MCV (RBC) [Entitic vol] 105.9 fL Critically high 80.0-94.0 [facility] Comment on above: Result Comment: 1+ m acrocytosis Performed By: #### B CLEARANCE CUTTER, T7, CMP, TSH #### [facility] [address] [place] [address] Dr. Get Whitten MONO # 0.8 103/ul Normal 0.3-0.8 [facility] Comment on above: Performed By: #### B CLEARANCE CUTTER, T7, CMP, TSH #### [facility] [address] [place] [address] Dr. Get Whitten Monocytes/100 WBC (Bld) 7.0 % Normal 1.7-12.0 [facility] Comment on above: Performed By: #### B CLEARANCE CUTTER, T7, CMP, TSH #### [facility] [address] [place] [address] Dr. Get Whitten NEUT # 7.5 103/ul Critically high 1.4-6.5 [facility] Comment on above: Performed By: #### B CLEARANCE CUTTER, T7, CMP, TSH #### [facility] [address] [place] [address] Dr. Get Whitten Neutrophils/100 WBC (Bld) 68.3 % Normal 43.0-75.0 [facility] Comment on above: Performed By: #### B CLEARANCE CUTTER, T7, CMP, TSH #### [facility] [address] [place] [address] Dr. Get Whitten Platelet mean volume (Bld) [Entitic vol] 8.6 fL Critically low 9.5-13.5 [facility] Comment on above: Performed By: #### B CLEARANCE CUTTER, T7, CMP, TSH #### [facility] [address] [place] [address] Dr. Get Whitten PLT 235 103/ul Normal 150-450 [facility] Comment on above: Performed By: #### B CLEARANCE CUTTER, T7, CMP, TSH #### [facility] [address] [place] [address] Dr. Get Whitten RBC 3.87 106/ul Critically low 4.70-6.10 [facility] Comment on above: Performed By: #### B CLEARANCE CUTTER, T7, CMP, TSH #### [facility] [address] [place] [address] Dr. Get Whitten WBC 11.0 103/ul Normal 4.0-11.0 [facility] Comment on above: Performed By: #### B CLEARANCE CUTTER, T7, CMP, TSH #### [facility] [address] [place] [address] Dr. Get Whitten POINT OF CARE GLUCOSEon 01-13 Glucose [Mass/Vol] 116 mg/dL Critically high 74-106 [facility] Comment on above: Performed By: #### C MP #### [facility] [address] [place] [address] Dr. Get Whitten PROF CHEM 8 (BAS METB)on Anion gap [Moles/Vol] 14.2 mmol/L Normal [facility] Comment on above: Performed By: #### B CLEARANCE CUTTER, T7, CMP, TSH #### [facility] [address] [address] [address] Get Whitten Calcium [Mass/Vol] 8.7 mg/dL Normal 8.5-10.1 [facility] Comment on above: Performed By: #### B CLEARANCE CUTTER, T7, CMP, TSH #### [facility] [address] [place] [address] Dr. Get Whitten Chloride [Moles/Vol] 99 mmol/L Normal 98-107 [facility] Comment on above: Performed By: #### B CLEARANCE CUTTER, T7, CMP, TSH #### [facility] [address] [address] [address] Get Whitten CO2 [Moles/Vol] 25.1 mmol/L Normal 21.0-32.0 [facility] Comment on above: Performed By: #### B CLEARANCE CUTTER, T7, CMP, TSH #### [facility] [address] [address] [address] Get Whitten Creatinine [Mass/Vol] 1.24 mg/dL Normal 0.70-1.30 [facility] Comment on above: Performed By: #### B CLEARANCE CUTTER, T7, CMP, TSH #### [facility] [address] [place] [address] Dr. Get Whitten EGFR-AF NAMIBIAN >60 Normal >=60 [facility] Comment on above: Performed By: #### B CLEARANCE CUTTER, T7, CMP, TSH #### [facility] [address] [address] [address] Get Whitten EGFR-NON AF NAMIBIAN =60 Normal >=60 [facility] Comment on above: Performed By: #### B CLEARANCE CUTTER, T7, CMP, TSH #### [facility] [address] [place] [address] Dr. Get Whitten Glucose [Mass/Vol] 122 mg/dL Critically high 74-106 [facility] Comment on above: Performed By: #### B CLEARANCE CUTTER, T7, CMP, TSH #### [facility] [address] [place] [address] Dr. Get Whitten Potassium [Moles/Vol] 4.3 mmol/L Normal 3.5-5.1 [facility] Comment on above: Performed By: #### B CLEARANCE CUTTER, T7, CMP, TSH #### [facility] [address] [place] [address] Dr. Get Whitten Sodium [Moles/Vol] 134 mmol/L Critically low 136-145 [facility] Comment on above: Performed By: #### B CLEARANCE CUTTER, T7, CMP, TSH #### [facility] [address] [place] [address] Dr. Get Whtiten Urea nitrogen [Mass/Vol] 7.0 mg/dL Normal 7.0-18.0 [facility] Comment on above: Performed By: #### B CLEARANCE CUTTER, T7, CMP, TSH #### [facility] [address] [place] [address] Dr. Get Whitten Urea nitrogen/Creatinin e [Mass ratio] 5.6 mg/mg Normal [facility] Comment on above: Performed By: #### B CLEARANCE CUTTER, T7, CMP, TSH #### [facility] [address] [place] [address] Dr. Get Whitten TROPONIN, HIGH SENSITIVITYon 01-24-2022 HSTROP 5.1 pg/mL Normal 4.0-76.1 [facility] Comment on above: Result Comment: CUT- OFF POINTS HAVE BEEN ESTABLISHED BASED ON THE FOURTH UNIVERSAL DEFINITIONS OF MYOCARDIAL INFARCTION. THE UPPER REFERENCE LIMIT (URL) OF TROPONIN, DEFINED THE 99TH PERCENTILE OF cTnI DISTRIBUTION IN A REFERENCE POPULATION, HAS BEEN CONFIRMED THE DECISION THRESHOLD FOR [place] DIAGNOSIS. Performed By: #### B CLEARANCE CUTTER, T7, CMP, TSH #### [facility] [address] [address] [address] Get Whitten XR CHEST 1 Von [...] CESAR PARKER Date: 2022-01-24 11:31 Normal [facility] BNPon 01-09-2022 Natriuretic peptide B (Bld) [Mass/Vol] 83.0 pg/mL Normal <=900.0 [facility] Comment on above: Performed By: #### C MP, HSTROPN, BNP #### [facility] [address] [place] [address] Dr. Get Whitten CBC AUTO DIFFon 01-09-2022 BASO # 0.0 103/ul Normal 0.0-0.1 [facility] Comment on above: Performed By: #### C MP #### [facility] [address] [place] [address] Dr. Get Whitten Basophils/100 WBC (Bld) 0.4 % Normal 0.2-2.0 [facility] Comment on above: Performed By: #### C MP #### [facility] [address] [place] [address] Dr. Get Whitten EO # 0.0 103/ul Normal 0.0-0.7 [facility] Comment on above: Performed By: #### C MP #### [facility] [address] [place] [address] Dr. Get Whitten Eosinophils/100 WBC (Bld) 0.2 % Critically low 0.9-7.0 [facility] Comment on above: Performed By: #### C MP #### [facility] [address] [place] [address] Dr. Get Whitten Erythrocyte distribution width (RBC) [Ratio] 13.1 % Normal 11.0-15.0 [facility] Comment on above: Performed By: #### C MP #### [facility] [address] [address] [address] Get Whitten Hematocrit (Bld) [Volume fraction] 41.5 % Critically low 42.0-54.0 [facility] Comment on above: Performed By: #### C MP #### [facility] [address] [address] [address] Get Whitten Hemoglobin (Bld) [Mass/Vol] 14.4 g/dL Normal 14.0-18.0 [facility] Comment on above: Performed By: #### C MP #### [facility] [address] [address] [address] Get Whitten IG # 0.12 10e3/ul Critically high 0.00-0.03 [facility] Comment on above: Performed By: #### C MP #### [facility] [address] [address] [address] Get Whitten IG % 1.1 % Critically high 0.0-0.5 [facility] Comment on above: Performed By: #### C MP #### [facility] [address] [address] [address] Get Whitten LYMPH # 2.3 103/ul Normal 1.2-3.8 [facility] Comment on above: Performed By: #### C MP #### [facility] [address] [address] [address] Get Whitten Lymphocytes/100 WBC (Bld) 20.9 % Normal 20.5-60.0 [facility] Comment on above: Performed By: #### C MP #### [facility] [address] [address] [address] Get Whitten MANUAL DIFF REQ NO Normal [facility] Comment on above: Performed By: #### C MP #### [facility] [address] [place] [address] Dr. Get Whitten MCH (RBC) [Entitic mass] 37.1 pg Critically high 25.9-34.0 [facility] Comment on above: Performed By: #### C MP #### [facility] [address] [address] [address] Get Whitten MCHC (RBC) [Mass/Vol] 34.7 g/dL Normal 29.9-35.2 [facility] Comment on above: Performed By: #### C MP #### [facility] [address] [address] [address] Get Whitten MCV (RBC) [Entitic vol] 107.0 fL Critically high 80.0-94.0 [facility] Comment on above: Result Comment: 1+ m acrocytosis Performed By: #### C MP #### [facility] [address] [address] [address] Get Whitten MONO # 0.7 103/ul Normal 0.3-0.8 [facility] Comment on above: Performed By: #### C MP #### [facility] [address] [place] [address] Dr. Get Whitten Monocytes/100 WBC (Bld) 6.3 % Normal 1.7-12.0 [facility] Comment on above: Performed By: #### C MP #### [facility] [address] [address] [address] Get Whitten NEUT # 7.7 103/ul Critically high 1.4-6.5 [facility] Comment on above: Performed By: #### C MP #### [facility] [address] [address] [address] Get Whitten Neutrophils/100 WBC (Bld) 71.1 % Normal 43.0-75.0 [facility] Comment on above: Performed By: #### C MP #### [facility] [address] [address] [address] Get Whitten Platelet mean volume (Bld) [Entitic vol] 8.6 fL Critically low 9.5-13.5 [facility] Comment on above: Performed By: #### C MP #### [facility] [address] [address] [address] Get Whitten PLT 238 103/ul Normal 150-450 [facility] Comment on above: Performed By: #### C MP #### [facility] [address] [address] [address] Get Whitten RBC 3.88 106/ul Critically low 4.70-6.10 [facility] Comment on above: Performed By: #### C MP #### [facility] [address], [place] [address] Dr. Get Whitten WBC 10.8 103/ul Normal 4.0-11.0 [facility] Comment on above: Performed By: #### C MP #### [facility] [address], [place] [address] Dr. Get Whitten Covid-19 PCR (CVDTB)on 12-15 SARS-CoV-2 (COVID-19) RNA ASHLEE+probe Ql (Unsp spec) Not detected Normal NOT DETECTED [facility] Comment on above: Result Comment: When [...] for this test is supported by the [employer] Operator of Health and Human Service's declaration that [...] By: #### C MP, HSTROPN, BNP #### [facility] [address] [place], [place] [id number] Dr. Get Whitten PROF 14(COMP METB)on 022 Albumin [Mass/Vol] 4.0 g/dL Normal 3.4-5.[address] [facility] Comment on above: Performed By: #### C MP, HSTROPN, BNP #### [facility] [address] [address] [address] Get Whitten Albumin/Globulin [Mass ratio] 1.0 {ratio} Normal [facility] Comment on above: Performed By: #### C MP, HSTROPN, BNP #### [facility] [address] [address] [address] Get Whitten ALP [Catalytic activity/Vol] 90 U/L Normal 46-116 [facility] Comment on above: Performed By: #### C MP, HSTROPN, BNP #### [facility] [address] [address] [address] Get Whitten ALT [Catalytic activity/Vol] 27 U/L Normal 16-63 [facility] Comment on above: Performed By: #### C MP, HSTROPN, BNP #### [facility] [address] [place] [address] Dr. Get Whitten Anion gap [Moles/Vol] 12.6 mmol/L Normal [facility] Comment on above: Performed By: #### C MP, HSTROPN, BNP #### [facility] [address] [place] [address] Dr. Get Whitten AST [Catalytic activity/Vol] 16 U/L Normal 15-37 [facility] Comment on above: Performed By: #### C MP, HSTROPN, BNP #### [facility] [address] [place] [address] Dr. Get Whitten Bilirubin [Mass/Vol] 0.4 mg/dL Normal 0.2-1.0 [facility] Comment on above: Performed By: #### C MP, HSTROPN, BNP #### [facility] [address] [place] [address] Dr. Get Whitten Calcium [Mass/Vol] 8.4 mg/dL Critically low 8.5-10.1 [facility] Comment on above: Performed By: #### C MP, HSTROPN, BNP #### [facility] [address] [address] [address] Get Whitten Chloride [Moles/Vol] 100 mmol/L Normal 98-107 [facility] Comment on above: Performed By: #### C MP, HSTROPN, BNP #### [facility] [address] [place] [address] Dr. Get Whitten CO2 [Moles/Vol] 25.1 mmol/L Normal 21.0-32.0 [facility] Comment on above: Performed By: #### C MP, HSTROPN, BNP #### [facility] [address] [place] [address] Dr. Get Whitten Creatinine [Mass/Vol] 1.20 mg/dL Normal 0.70-1.30 [facility] Comment on above: Performed By: #### C MP, HSTROPN, BNP #### [facility] [address] [place] [address] Dr. Get Whitten EGFR-AF NAMIBIAN >60 Normal >=60 [facility] Comment on above: Performed By: #### C MP, HSTROPN, BNP #### [facility] [address] [place] [address] Dr. Get Whitten EGFR-NON AF NAMIBIAN >60 Normal >=60 [facility] Comment on above: Performed By: #### C MP, HSTROPN, BNP #### [facility] [address] [place] [address] Dr. Get Whitten Globulin (S) [Mass/Vol] 4.0 g/dL Normal [facility] Comment on above: Performed By: #### C MP, HSTROPN, BNP #### [facility] [address] [place] [address] Dr. Get Whitten Glucose [Mass/Vol] 110 mg/dL Critically high 74-106 [facility] Comment on above: Performed By: #### C MP, HSTROPN, BNP #### [facility] [address] [place] [address] Dr. Get Whitten Potassium [Moles/Vol] 4.7 mmol/L Normal 3.5-5.1 [facility] Comment on above: Performed By: #### C MP, HSTROPN, BNP #### [facility] [address] [place] [address] Dr. Get Whitten Protein [Mass/Vol] 8.0 g/dL Normal 6.4-8.[address] [facility] Comment on above: Performed By: #### C MP, HSTROPN, BNP #### [facility] [address] [address] [address] Get Whitten Sodium [Moles/Vol] 133 mmol/L Critically low 136-145 [facility] Comment on above: Performed By: #### C MP, HSTROPN, BNP #### [facility] [address] [place] [address] Dr. Get Whitten Urea nitrogen [Mass/Vol] 7.0 mg/dL Normal 7.0-18.0 [facility] Comment on above: Performed By: #### C MP, HSTROPN, BNP #### [facility] [address] [place] [address] Dr. Get Whitten Urea nitrogen/Creatinin e [Mass ratio] 5.8 mg/mg Normal [facility] Comment on above: Performed By: #### C MP, HSTROPN, BNP #### [facility] [address] [place] [address] Dr. Get Whitten PROTIMEon 01-09-2022 INR Coag (PPP) [Relative time] {INR} Normal [facility] Comment on above: Performed By: #### C VDTBH #### [facility] [address] [place] [address] Dr. Get Whitten INR GUIDELINES SEE BELOW Normal [facility] Comment on above: Result Comment: JORGE RED INR: 2.0 - 3.0 CONDITIONS NOT LISTED BELOW 2.5 - 3.5 FOR PROSTHETIC HEART VALVE REPLACEMENT 2.5 - 3.5 RECURRENT THROMBOSIS Performed By: #### C VDTBH #### [facility] [address] [place] [address] Dr. Get Whitten PT Coag (PPP) [Time] 9.8 s Normal 9.0-11.6 [facility] Comment on above: Performed By: #### C VDTBH #### [facility] [id number] Get Whitten PTTon 01-09-2022 aPTT Coag (Bld) [Time] 28.5 s Normal 22.3-36.2 [facility] Comment on above: Performed By: #### C MP #### [facility] [address] [address] [address] Get Whitten TROPONIN, HIGH SENSITIVITYon 01-09-2022 HSTROP 4.1 pg/mL Normal 4.0-76.1 [facility] Comment on above: Result Comment: CUT- OFF POINTS HAVE BEEN ESTABLISHED BASED ON THE FOURTH UNIVERSAL DEFINITIONS OF MYOCARDIAL INFARCTION. THE UPPER REFERENCE LIMIT (URL) OF TROPONIN, DEFINED THE 99TH PERCENTILE OF cTnI DISTRIBUTION IN A REFERENCE POPULATION, HAS BEEN CONFIRMED THE DECISION THRESHOLD FOR WI DIAGNOSIS. Performed By: #### C MP, HSTROPN, BNP #### [facility] [address] [address] [address] 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 CODING DATE: 12/18/2018 FINAL [facility] STATUS: Home (Routine DC) PAYOR: Commercial Insurance APC DESCRIPTION [id number] Procedures ADMIT DX: REASON FOR VISIT DX: H26.492 Other secondary cataract, left eye FINAL DX: PRINCIPAL: H26.492 Other secondary cataract, left eye SECONDARY: PYMT PROC APC STAT DESCRIPTION DOCTOR NAME DATE [id number] T Discission of secondary Darnell Rick DO [...] Verona Woodward Date Saved: 12/18/2018 10:51 am [facility] Encounters Encounter Date Encounter Type Care Provider Facility Start: 11-25-2024 ambulatory [facility] Start: 10-13-2024 ambulatory [facility] Start: 10-01-2024 End: 10-01-2024 [facility] Start: 08-06-2024 ambulatory [facility] Start: 06-25-2024 ambulatory [facility] Start: 06-06-2024 ambulatory [facility] Start: 05-23-2024 ambulatory [facility] Start: 05-09-2024 ambulatory [facility] Start: 04-16-2024 ambulatory [facility] Start: 03-28-2024 End: 03-28[facility] 03-07-2024 ambulatory [facility] Start: 02-12-2024 ambulatory [facility] Start: 01-09-2024 ambulatory [facility] Start: 12-27-2023 ambulatory [facility] Start: 01-08-2023 End: 01-09-2023 ambulatory Hernandez Wylie MD [facility] Start: 12-25-2022 End: 12-26-2022 ambulatory Hernandez Wylie MD [facility] Start: 11-27-2022 End: 11-28-[address] PEE LAKHANI . Facility: Start: 11-24-2022 End: 12-13-[address] PEE LAKHANI . Facility:[facility] Start: 10-27-2022 End: 10-27-[address] LIZZIE ALEGRE . Facility:[facility] Start: 10-23-2022 End: 10-24-[address] PEE LAKHANI . Facility:[facility] Start: 08-03-[address] PEE LAKHANI . Facili ty:[facility] Start: 05-24-[address] PEE LAKHANI . Facili ty:[facility] Start: 05-16-[address] PEE LAKHANI . Facili ty:[facility] Start: 04-21-[address] PEE LAKHANI . Facili ty:[facility] Start: 04-15-2022 End: 04-16-[address] PEE LAKHANI . Facility:[facility] Start: 03-29-2022 End: 03-31-[address] PEE LAKHANI . Facility:[facility] Start: 03-27-2022 End: 03-28-2022 Evaluation and management of inpatient DR PEE LAKHANI . Facility:[facility] Start: 03-23-2022 End: 03-23-[address] PEE LAKHANI . Facility:[facility] Start: 03-17-2022 End: 03-17-[address] PEE LAKHANI . Facility:[facility] Start: 01-24-2022 End: 01-24-[address] PEE LAKHANI . Facility:[facility] Start: 01-09-2022 End: 01-09-[address] LIZZIE ALEGRE . Facility:[facility] Payers Date Payer Category Payer Private Health Insurance 1965 Unknown [id number] 2.16.84 [id number] 1965 Unknown [id number] 2.16.84 [id number] 1965 Unknown [id number] .16.84 0.1.038202.3.579.259 1965 Unknown [id number] 2.16.84 0.1.556208.3.579.2.593 1965 Unknown [id number] 2.16.84 0.1.036892.3.579.2.593 1965 Unknown [id number] 2.16.84 0.1.124341.3.579.2.593 1965 Unknown [id number] 2.16.84 0.1.008374.3.579.2.593 1965 Unknown [id number] 2.16.84 0.1.275767.3.579.2.593 1965 Unknown [id number] 2.16.84 0.1.377684.3.579.2.593 1965 Unknown [id number] 2.16.84 0.1.858752.3.579.2.593 1965 Unknown [id number] 2.16.84 0.1.552750.3.579.2.593 1965 Unknown [id number] 2.16.84 0.1.882689.3.579.2.593 1965 Unknown [id number] 2.16.84 0.1.803610.3.579.2.593 1965 Unknown [id number] 2.16.84 0.1.313597.3.579.2.593 1965 Unknown [id number] 2.16.84 0.1.703060.3.579.2.593 1965 Unknown [id number] 2.16. 840.1.967008.3.579.2.196 1965 Unknown [id number] .16. [id number] 1959 Medicare [id number] 1959 Private Health Insurance [id number] 1959 Self-pay [id number] Progress note 10-01-2024 Note Date & Type Note Facility 10-01-2024 Note [facility] Subjective Rehan Poole is a 59 y.o. year old male patient being seen for chest pain, shortness of breath, history of syncope status post loop recorder implant Patient Active Problem List Diagnosis Mobitz (type) I (Wenckebach's) atrioventricular block Acquired hypothyroidism Acute gout Hypertension Allergic rhinitis Benign prostatic hyperplasia without lower urinary tract symptoms Cervical radiculopathy Depressive disorder, not elsewhere classified Diverticulitis of colon Dizziness and giddiness Fibromyalgia Fatigue Gastroesophageal reflux disease Generalized osteoarthrosis, unspecified site Glaucoma Hypo-osmolality and hyponatremia Intrinsic asthma Irritable bowel syndrome Low back pain Migraine, unspecified, not intractable, without status migrainosus Mixed hyperlipidemia Movement disorder Hereditary and idiopathic neuropathy, unspecified Myoclonus Obstructive sleep apnea syndrome Ostium secundum type atrial septal defect Disc displacement, lumbar Overweight Peripheral venous insufficiency Personal history of tobacco use, presenting hazards to health Restless legs syndrome Syncope Adrenal insufficiency NSTEMI (non-ST elevated myocardial infarction) ([facility]) Alcoholism ([facility]) Atypical chest pain COVID-19 Diverticulitis Dysphagia Dyspnea Edema Epigastric pain Groin strain Lumbar radicular pain Other diseases of lung, not elsewhere classified Other instability, left ankle Other specified congenital deformities of feet Pain in left ankle and joints of left foot Pneumonia Primary osteoarthritis of left hip Sprain of left ankle Syncope and collapse Benign essential hypertension Osteoarthritis of knee Recurrent seizures ([facility]) HPI Patient with history of syncope 2022, he did not have evidence of ischemia. He had loop recorder inserted for 10/15/2023. He also has history of hypertension, hyperlipidemia, hypothyroidism, seizure, He is here today with his for follow-up visit. He reports significant dyspnea to on exertion with minimal activities. He is sedentary and he does not walk or exercise on regular basis. He states that at rest he has occasional sharp localized chest pain which last for few seconds to max minute. Denies any chest discomfort with exertion. He denies orthopnea or paroxysmal nocturnal dyspnea but on a rare occasion he wakes up gasping for air. His denies that he snores. He does not feel sleepy or tired during the daytime. He denies dizziness except when he stands up very quickly. He denies syncope or near syncope. He denies legs edema. He had right leg pain with exertion where he had a muscular tear in the past therefore he uses a cane because that makes her little bit unsteady ROS All systems were reviewed and they were negative except for the positive findings noted above in the history Past Medical History: Diagnosis Date COPD (chronic obstructive pulmonary disease) ([facility]) Hyperlipidemia Hypertension Seizures (CMS/HCC) Syncope No past surgical history on file. No family history on file. Social History Tobacco Use Smoking status: Former Current packs/day: 0.00 Average packs/day: 1 pack/day for 38.0 years (38.0 ttl pk-yrs) Types: Cigarettes Start date: 1982 Quit date: 2020 Years since quittin.2 Smokeless tobacco: Former Types: Chew Quit date: 1984 Vaping Use Vaping status: Never Used Substance Use Topics Alcohol use: Yes Alcohol/week: 14.0 standard drinks of alcohol Types: 14 Cans of beer per week Drug use: Never Allergies Allergies Allergen Reactions [place] Anaphylaxis Penicillins Angioedema Medications Current Outpatient Medications: albuterol 90 mcg/actuation inhaler, Inhale 2 puffs every 6 (six) hours if needed for wheezing., Disp: , Rfl: amitriptyline (Elavil) 50 mg tablet, Take 50 mg by mouth in the morning., Disp: , Rfl: aspirin 81 mg EC tablet, Take 162 mg by mouth in the morning., Disp: , Rfl: diclofenac (Voltaren) 75 mg EC tablet, Take 1 tablet by mouth Twice daily at 6am and 6pm., Disp: , Rfl: dutasteride (Avodart) 0.5 mg capsule, Take 0.5 mg by mouth in the morning., Disp: , Rfl: folic acid (Folvite) 1 mg tablet, 1 (one) time each day at the same time., Disp: , Rfl: levETIRAcetam (Keppra) 750 mg tablet, Take 750 mg by mouth in the morning and at bedtime., Disp: , Rfl: metoprolol tartrate (Lopressor) 25 mg tablet, Take 1 tablet (25 mg) by mouth in the morning and at bedtime., Disp: 60 tablet, Rfl: 0 montelukast (Singulair) 10 mg tablet, Take 10 mg by mouth in the morning., Disp: , Rfl: nitroglycerin (Nitrostat) 0.4 mg SL tablet, Place 1 tablet (0.4 mg) under the tongue every 5 (five) minutes if needed for chest pain. May repeat dose every 5 minutes for up to 3 doses total., Disp: 100 tablet, Rfl: 11 tiZANidine (Zanaflex) 4 mg tablet, Take 4 mg by saloni (more content not included)... [facility] Progress note 03-28-2024 Note Date & Type Note Facility 03-28-2024 Note Intermittent sharp c hest pain while at rest and watching TV, with recent ischemic testing with stress test and echocardiogram no acute concerns or need for any further invasive heart catheter cardiac procedures. Discussed with patient to discuss with his PCP for other etiologies of his chest pain including possible musculoskeletal, pulmonary, GI [facility] Progress note 03-28-2024 Note Date & Type Note Facility 03-28-2024 Note Denies any episodes of syncope or collapse since last visit no seizure activity states overall he is doing well. [facility] Progress note 03-28-2024 Note Date & Type Note Facility 03-28-2024 Note Event monitor review ed no concerning arrhythmias, heart block or pauses [facility] Progress note 03-28-2024 Note Date & Type Note Facility 03-28-2024 Note Lipid abnormalities are well-controlled with Lipitor 10 mg daily Liver function normal No concerning symptoms [facility] Progress note 03-28-2024 Note Date & Type Note Facility 03-28-2024 Note Hypertension is curr ently well-controlled 132/83 Denies any lightheadedness, dizziness, syncope. Continue metoprolol and isosorbide. [facility] Progress note 03-28-2024 Note Date & Type Note Facility 03-28-2024 Note Pt is here for follo w up from a loop insertion. Pt denies chest pain, palpatation, dizziness. Pt says later in the day he gets chest pains after sitting awihile. Review of Systems Constitutional: Positive for malaise/fatigue. Cardiovascular: Positive for dyspnea on exertion and syncope. Respiratory: Positive for shortness of breath (when walking). All other systems reviewed and are negative. [facility] Progress note 03-28-2024 Note Date & Type Note Facility 03-28-2024 Note [facility] ESS NOTE HPI: Rehan Poole is a 59 y.o. male here for routine F/U HPI 59-year-old male presents today with for routine follow-up and review of his ILR. Overall states he is doing well denies any lightheadedness, dizziness, syncope, seizure activity. Denies shortness of breath, orthopnea or palpitations. Does admit he is still having the same sharp left mid chest pain intermittently, typically while sitting and watching TV, denies any precipitating or alleviating factors, states it lasts only for seconds and then resolves, does not occur with shortness of breath, sweating or nausea. Denies any chest pain with activity or exertion, and states he does not awaken with chest pain. ILR report 03/23/24 report Presenting rhythm NSR Battery JESSE: Above 10% Charge Remaining Arrhythmias 0 TACHY 0 AF 7 SYMPTOM [id number] <03-22-2024 10:00- pt was in Sinus rhythm Review of Systems Constitutional: Negative. Respiratory: Negative. Cardiovascular: Positive for chest pain. Neurological: Negative. All other systems reviewed and are negative. Previous HPI per Dr Gabriel Reason for visit: hospital follow up, syncope 10/15/23. Pt here for Loop implant 07/17/22: Here for hospital follow up Was admited again for syncope at [facility] 05/27 Had stress test which was negative [...] of PFO He was just seen at [facility] for syncope / CP, he was suppose [...] worsens with exertion and improves with rest Visit Vitals BP 132/83 (BP Location: Right arm, Patient Position: Sitting) Pulse 69 Ht 1.854 m (6' 1 ) Wt 102 kg (224 lb) SpO2 95% BMI 29.55 kg/m??? Smoking Status Former BSA 2.29 m??? Allergies Allergen Reactions [place] Anaphylaxis Penicillins Angioedema Medications: Current Outpatient Medications on File Prior to [...] 0.5 mg by mouth in the morning. folic acid (Folvite) 1 mg tablet 1 (one) time each day at the same time. isosorbide mononitrate ER (Imdur) 30 mg 24 hr tablet Take by mouth in the morning. levETIRAcetam (Keppra) 750 mg tablet Take 750 mg by mouth in the morning and at bedtime. metoprolol tartrate (Lopressor) 25 mg tablet Take 1 tablet (25 mg) by mouth in the morning and at bedtime. 60 tablet 0 montelukast (Singulair) 10 mg tablet Take 10 mg by mouth in the morning. ranolazine (Ranexa) 500 mg 12 hr tablet Take 1 tablet (500 mg) by mouth in the morning and at bedtime. Do not crush, chew, or split. 60 tablet 11 tamsulosin (Flomax) 0.4 mg 24 hr capsule Take 0.4 mg by mouth in the morning. tiotropium (Spiriva) [address] 1 capsule into inhaler and inhale if needed each day. tiZANidine (Zanaflex) 4 mg tablet Take 4 mg by mouth at bedtime. topiramate (Topamax) 100 mg tablet Take 100 mg by mouth in the morning and at bedtime. 100mg in am 200mg in pm traZODone (Desyrel) 100 mg tablet Take 100 mg by mouth at bedtime. ubpuichvuda-xiovjnqwv-ezkihzqd (Trelegy Ellipta) 100-62.5-25 mcg blister with device Inhale 100 mcg in the morning. mometasone-formoterol (Dulera 200) 200-5 mcg/actuation inhaler Inhale 2 puffs twice a day. nitroglycerin (Nitrostat) 0.[address] 1 tablet (0.4 mg) under the tongue every 5 (five) minutes if needed for chest pain. May repeat dose every 5 minutes for up to 3 doses total. (Patient not taking: Reported on 10/15/2023) 100 tablet 11 [DISCONTINUED] levothyroxine (Synthroid, Levoxyl) 200 mcg tablet Take 1 tablet (200 mcg) by mouth before breakfast for 95 doses. 90 tablet 0 [DISCONTINUED] methocarbamol (Robaxin) 500 mg tablet Take 1 tablet (500 mg) by mouth at bedtime for 10 days. (Patient not taking: Reported on 09/05/2023) 10 tablet 0 No curre (more content not included)... [facility] Clinical Note 11-27-2022 Note Date & Type Note Facility 11-27-2022 Note PROCEDURE: XR ANKLE LT 2V HISTORY: Unspecified fall , left ankle pain COMPARISON: None. FINDINGS: BONES:No fracture, acute abnormality, or significant arthropathy. SOFT TISSUES:Mild anterior lateral soft tissue swelling. EFFUSION:None visible. OTHER: Negative. IMPRESSION: 1. No acute bone abnormality. Electronically authenticated by: SHEN SOSA Date: 2022-11-27 11:27 [facility] Clinical Note 10-24-2022 Note Date & Type Note Facility 10-24-2022 Note PROCEDURE: XR HIP LT 2 3V W PELVIS HISTORY: Idiopathic osteoarthritis ; acute left hip pain after falling COMPARISON: None. FINDINGS: BONES:No fracture, acute abnormality, or significant arthropathy. SOFT TISSUES:No visible soft tissue swelling. EFFUSION:None visible. OTHER: Negative. IMPRESSION: 1. No acute bone abnormality or significant degenerative joint disease. Electronically authenticated by: SHEN SOSA Date: 2022-10-24 09:51 [facility] Summary Purpose Family History No Family [...] section and content) DATE CREATED AUTHOR [facility] DATE CREATED AUTHOR AUTHOR'S ORGANIZ ATION 12/22/2022 [facility] DATE CREATED AUTHOR AUTHOR'S ORGANIZ ATION 03/06/2023 [facility] DATE CREATED AUTHOR AUTHOR'S ORGANIZ ATION 11/26/2024 [facility] FOR RECORDS PERTAINING TO PATIENTS WHO [...] BE BASED ON THE PRIMARY CLINICAL RECORDS. [employer] provides no warranty or guarantee of the accuracy or completeness of information in this document.
--- NOTE | 2024-12-01 10:29 | XR_ITS ---
The [address] [address] Patient Name: ELENA TREJO MRN: [id number] date: 1965 Sex: M Assigned Patient Location: ER Current Patient Location: ER Accession/Order Number: [id number] Exam Date: 12/01/2024 11:12 Report Date: 12/01/2024 11:14 At the request of: CARMENCITA PAYTON MD Procedure: XR femur RT 2V XR femur RT 2V 12/01/2024 11:03 AM SIGNS AND SYMPTOMS: ^pain severe PROTOCOL: Frontal and lateral graphs of the right femur COMPARISON: 10/23/2022 FINDINGS: There has been interval collapse of the articular surface of the femoral head. There is a fracture line traversing the head of the femur into the neck of the femur which is vertically oriented. The femur is otherwise intact. There is narrowing of the joint spaces of the right hip and right knee. The visualized right hemipelvis is grossly intact. XR/XR femur RT 2V IMPRESSION: Collapse of the articular surface of the femoral head, new compared to the prior exam with a vertically oriented fracture through the head and neck of the right proximal femur. Impression dictated by: Reinaldo Yeung M.D. 12/01/2024 11:14 AM Dictation Location: [facility] Electronically authenticated by: [id number] Y Date: 12/01/2024 11:14
--- NOTE | 2024-12-01 10:29 | XR_ITS ---
The [address] [address] Patient Name: ELENA TREJO MRN: [id number] date: 1965 Sex: M Assigned Patient Location: ER Current Patient Location: ER Accession/Order Number: [id number] Exam Date: 12/01/2024 11:14 Report Date: 12/01/2024 11:16 At the request of: CARMENCITA PAYTON MD Procedure: XR hip RT 2V w/ pelvis XR hip RT 2V w/ pelvis 12/01/2024 11:03 AM SIGNS AND SYMPTOMS: ^pain in right hip PROTOCOL: Frontal and frog-leg views of the right femur COMPARISON: 10/23/2022 FINDINGS: There has been interval collapse of the articular surface of the femoral head. There is a fracture line traversing the head of the femur into the neck of the femur which is vertically oriented. There is narrowing of the joint spaces of the right hip. The bony ring of the pelvis is intact. There is partial collapse of the articular surface of the left femur which is chronic. Vascular calcifications are noted in the pelvis. XR/XR hip RT 2V w/ pelvis IMPRESSION: Collapse of the articular surface of the femoral head, new compared to the prior exam with a vertically oriented fracture through the head and neck of the right proximal femur. There is partial collapse of the articular surface of the left femur which is chronic. Impression dictated by: Reinaldo Yeung M.D. 12/01/2024 11:16 AM Dictation Location: [place] [address] Electronically authenticated by: [id number] Y Date: 12/01/2024 11:16
[2024-12-01] MEDS: MORPHINE SULFATE 4 MG/ML VIAL IV (10:41)
[2024-12-01] MEDS: KETOROLAC TROMETHAMINE 30 MG/ML VIAL 15 MG IVP (10:42)
[2024-12-01 10:46] LABS: Basophils Percent Auto 0.3 % (0.2-2.0); Eosinophils Absolute Auto 0.1 10^3/uL (0.0-0.7); Eosinophils Percent Auto 0.7 % (0.9-7.0); Hematocrit 40.2 % (42.0-54.0); Hemoglobin 14.2 g/dL (14.0-18.0); Lymphocytes Absolute Auto 2.6 10^3/uL (1.2-3.8); Lymphocytes Percent Auto 26.6 % (20.5-60.0); Mean Corpuscular HGB Conc 35.3 g/dL (29.9-35.2); Mean Corpuscular Hemoglobin 34.3 pg (25.9-34.0); Mean Corpuscular Volume 97.1 fL (80.0-94.0); Mean Platelet Volume 9.1 fL (9.5-13.5); Monocytes Absolute Auto 0.6 10^3/uL (0.3-0.8); Monocytes Percent Auto 6.6 % (1.7-12.0); Neutrophils Absolute Auto 6.3 10^3/uL (1.4-6.5); Neutrophils Percent Auto 64.8 % (43.0-75.0); Platelet Count 210 10^3/uL (150-450); Red Blood Count 4.14 10^6/uL (4.70-6.10); Red Cell Distribution Width 12.7 % (11.0-15.0); White Blood Count 9.7 10^3/uL (4.0-11.0)
[2024-12-01 11:00] LABS: INR 0.93; Prothrombin Time 9.9 sec (9.0-11.6)
[2024-12-01 11:03] LABS: Alanine Aminotransferase 111 U/L (16-63); Albumin Globulin Ratio 0.9; Albumin Level 3.4 g/dL (3.4-5.0); Alkaline Phosphatase 138 U/L (46-116); Anion Gap 14.4; Aspartate Amino Transferase 29 U/L (15-37); BUN Creatinine Ratio 11.2; Bilirubin Total 0.6 mg/dL (0.2-1.0); Calcium 8.7 mg/dL (8.5-10.1); Carbon Dioxide 22.5 mmol/L (21.0-32.0); Chloride 97 mmol/L (98-107); Estimated GFR (African America >60 (>=60 mL/min/1.73m^2); Estimated GFR (Non-African Ame >60 (>=60 mL/min/1.73m^2); Globulin 3.6 g/dL; Glucose 96 mg/dL (74-106); Potassium 3.9 mmol/L (3.5-5.1); Sodium 130 mmol/L (136-145)
[2024-12-01 11:50] LABS: C Reactive Protein 2.11 mg/dL (<=0.50)
[2024-12-01 11:54] LABS: Erythrocyte Sedimentation Rate 46 mm/hr (<=20)
[2024-12-01 11:58] VITALS: BP 135/81; PULSE 71; O2SAT 96
[2024-12-01] MEDS: HYDROMORPHONE HCL 0.5 MG/0.5 ML SYRINGE IV ×2 (12:19→19:33)
--- NOTE | 2024-12-01 12:21 | ED.EXTPRO1 ---
HPI - Extremity Problem General Chief complaint: Extremity Problem, Nontraumatic Stated complaint: GROIN PAINS Time Seen by Provider: 12/01/24 10:10 Source: patient Mode of arrival: Wheelchair History of Present Illness HPI Narrative: The patient is a 59-year-old male with history of chronic back pain is coming to the ER with a right groin pain, this started 4 weeks ago when he was turning in the bed to grab his while she is falling of the bed beside him, the patient does not remember having any fall specifically He has not been able to put any weight on his right hip for the last few days and the pain is severe, before that he has been evaluated 3 times with his primary care doctor and treated with steroid and Toradol as well The patient mentioned that none of that helped No other complaint except for the fact that the patient also have some right ankle swelling that he noted for the first time he had no other injuries Related Data Home Medications ?Medication ?Instructions ?Recorded ?Confirmed metoprolol tartrate 50 mg tablet 50 mg PO BID 12/24/22 12/01/24 aspirin 81 mg chewable tablet 162 mg PO DAILY 12/25/22 12/01/24 (Aspirin Childrens) atorvastatin 10 mg tablet 10 mg PO QPM 05/25/23 12/01/24 tizanidine 4 mg tablet 8 mg PO QPM 05/25/23 12/01/24 isosorbide mononitrate 30 mg 30 mg PO QAM 07/21/23 12/01/24 tablet,extended release 24 hr topiramate 100 mg tablet 200 mg PO BEDTIME 07/21/23 12/01/24 diphenhydramine HCl 25 mg tablet 50 mg PO .hs 09/12/23 12/01/24 (Allergy) melatonin 12 mg tablet 24 mg PO .hs 09/12/23 12/01/24 diclofenac sodium 75 mg 75 mg PO BID PRN pain 12/01/24 12/01/24 tablet,delayed release levothyroxine 125 mcg tablet 250 mcg PO QAM 12/01/24 12/01/24 tamsulosin 0.4 mg capsule 0.4 mg PO DAILY 12/01/24 12/01/24 topiramate 100 mg tablet 100 mg PO QAM 12/01/24 12/01/24 Previous Rx's ?Medication ?Instructions ?Recorded liothyronine 5 mcg tablet 10 mcg (2 x 5 mcg) PO DAILY #60 09/13/23 tabs Allergies Allergy/AdvReac Type Severity Reaction Status Date / Time Penicillins Allergy Severe Verified 06/21/23 01:46 strawbery Allergy Uncoded 06/21/23 01:46 Review of Systems ROS Status of ROS 10 or more systems reviewed and unremarkable except as noted in history and below [facility] Medical History (Updated 12/01/24 @ 16:26 by Radha Bennett MD) Implantable loop recorder present ?Z95.818 - Presence of other cardiac implants and grafts (ICD-10) Acute hyponatremia ?E87.1 - Hypo-osmolality and hyponatremia (ICD-10) Chest pain ?R07.9 - Chest pain, unspecified (ICD-10) Muscle strain of right thigh ?S76.911A - Strain of unspecified muscles, fascia and tendons at thigh level, right thigh, initial encounter (ICD-10) Bilateral edema of lower extremity ?R60.0 - Localized edema (ICD-10) Hypertension ?I10 - Essential (primary) hypertension (ICD-10) Hyperlipidemia ?E78.5 - Hyperlipidemia, unspecified (ICD-10) Migraine ?G43.909 - Migraine, unspecified, not intractable, without status migrainosus (ICD-10) Enlarged prostate ?N40.0 - Benign prostatic hyperplasia without lower urinary tract symptoms (ICD-10) Upper back pain ?M54.9 - Dorsalgia, unspecified (ICD-10) Back pain ?M54.9 - Dorsalgia, unspecified (ICD-10) Neck pain ?M54.2 - Cervicalgia (ICD-10) Seizure ?R56.9 - Unspecified convulsions (ICD-10) Numbness and tingling ?R20.0 - Anesthesia of skin (ICD-10) ?R20.2 - Paresthesia of skin (ICD-10) Heartburn ?R12 - Heartburn (ICD-10) Acid reflux ?K21.9 - Gastro-esophageal reflux disease without esophagitis (ICD-10) Hypothyroid ?E03.9 - Hypothyroidism, unspecified (ICD-10) Emphysema of lung ?J43.9 - Emphysema, unspecified (ICD-10) Surgical History H/O lumbosacral spine surgery ?Z98.890 - Other specified postprocedural states (ICD-10) H/O cervical spine surgery ?Z98.890 - Other specified postprocedural states (ICD-10) H/O heart surgery ?Z98.890 - Other specified postprocedural states (ICD-10) Social History Smoking status: Former smoker Highest level of school completed/degree received: some college, no degree Little interest or pleasure in doing things: not at all Feeling down, depressed, or hopeless: not at all Do you think of yourself as: straight/heterosexual Gender Identity: male Exam Narrative Exam Narrative: Nurses notes and vital signs reviewed and patient is not hypoxic. General: Well-appearing and in no apparent distress. Skin: Warm, dry, no pallor noted. No rash. Head: Normocephalic, atraumatic. Neck: Supple, non-tender. Eye: Pupils are equal, round and EOMI. No scleral icterus. Respiratory: No accessory muscle use or respiratory distress. Lungs are clear to auscultation, no wheezing, rales or rhonchi Chest Wall: no tenderness Back: No midline thoracic or lumbar vertebral tenderness. No CVA tenderness Musculoskeletal: The patient have severe tenderness upon palpation of the thigh and the right side he have a good anterior tibial pulse he does have some mild ankle edema and he also have good femoral pulse The patient pain was mostly pronounced when palpating the mid of the right thigh and the patient is not able to bend his right knee GI: Abdomen is soft, non-distended. Normal bowel sounds. No masses appreciated. No tenderness to palpation. No rebound, guarding, or rigidity noted. Neurological: A&O x4. No cranial nerve dysfunction observed. Constitutional Vital Signs, click to edit/add: Last Vital Signs Temp 97.6 F 12/01/24 10:07 Pulse 87 12/01/24 17:34 Resp 14 12/01/24 17:34 BP 159/96 H 12/01/24 17:34 Pulse Ox 98 12/01/24 17:34 O2 Del Method Room Air 12/01/24 10:07 Course Vital Signs Vital signs: Vital Signs Temperature 97.6 F 12/01/24 10:07 Pulse Rate 77 12/01/24 10:07 Respiratory Rate 20 05/19/25 10:07 Blood Pressure 182/96 H 12/01/24 10:07 Pulse Oximetry 98 12/01/24 10:07 Oxygen Delivery Method Room Air 12/01/24 10:07 Temperature 97.6 F 12/01/24 10:07 Pulse Rate 87 12/01/24 17:34 Respiratory Rate 14 12/01/24 17:34 Blood Pressure 159/96 H 12/01/24 17:34 Pulse Oximetry 98 12/01/24 17:34 Oxygen Delivery Method Room Air 12/01/24 10:07 MDM - Extremity (Nontraumatic) MDM Narrative Medical decision making narrative: The patient was in significant pain to be just only from a groin sprain The patient provided with IV morphine initially that did not help then Dilaudid 0.5 mg helped The patient x-ray of the right hip and right femur show possible fracture that is longitudinal to the right femoral head in addition to a possible collapse of the right hip joint that is new The patient initially also mentioned that he did not have a fall he after was told that he had a fracture mentioned that almost 2 weeks ago he also fell off the recliner chair, patient has not been putting any weight on his right leg since 4 weeks and he did not recognize that the pain increased at that time The patient blood workup showed no acute pathology his ESR that was elevated at 46 and his CRP is 2 The patient case initially discussed with Dr. Johnson and orthopedic service but right now he recommended the patient to be transferred Patient case discussed with Dr. Zhang in [facility] orthopedic service and he accepted the patient, the plan was to transfer the patient to [facility] and keep him n.p.o. after midnight for possible surgery tomorrow and right hip replacement Dr Herring Hospitalist accepted the pt Lab Data Labs: Lab Results 12/01/24 Range/Units 10:35 WBC 9.7 (4.0-11.0) 10^3/uL RBC 4.14 L (4.70-6.10) 10^6/uL Hgb 14.2 (14.0-18.0) g/dL Hct 40.2 L (42.0-54.0) % MCV 97.1 H (80.0-94.0) fL MCH 34.3 H (25.9-34.0) pg MCHC 35.3 H (29.9-35.2) g/dL RDW 12.7 (11.0-15.0) % Plt Count 210 (150-450) 10^3/uL MPV 9.1 L (9.5-13.5) fL Neut % (Auto) 64.8 (43.0-75.0) % Lymph % (Auto) 26.6 (20.5-60.0) % [place] % (Auto) 6.6 (1.7-12.0) % Eos % (Auto) 0.7 L (0.9-7.0) % Baso % (Auto) 0.3 (0.2-2.0) % Neut # (Auto) 6.3 (1.4-6.5) 10^3/uL Lymph # (Auto) 2.6 (1.2-3.8) 10^3/uL [place] # (Auto) 0.6 (0.3-0.8) 10^3/uL Eos # (Auto) 0.1 (0.0-0.7) 10^3/uL Baso # (Auto) 0.0 (0.0-0.1) 10^3/uL Abs Immat Gran (auto) 0.10 H (0.00-0.03) 10^3/uL Imm/Tot Granulo (auto) 1.0 H (0.0-0.5) % ESR 46 H (<=20) mm/hr PT 9.9 (9.0-11.6) sec INR 0.93 Sodium 130 L (136-145) mmol/L Potassium 3.9 (3.5-5.1) mmol/L Chloride 97 L (98-107) mmol/L Carbon Dioxide 22.5 (21.0-32.0) mmol/L Anion Gap 14.4 BUN 12.0 (7.0-18.0) mg/dL Creatinine 1.07 (0.70-1.30) mg/dL Est GFR ( Amer) >60 (>=60 mL/min/1.73m^2) Est GFR (Non-Af Amer) >60 (>=60 mL/min/1.73m^2) BUN/Creatinine Ratio 11.2 Glucose 96 (74-106) mg/dL Calcium 8.7 (8.5-10.1) mg/dL Total Bilirubin 0.6 (0.2-1.0) mg/dL AST 29 (15-37) U/L ALT 111 H (16-63) U/L Alkaline Phosphatase 138 H (46-116) U/L C-Reactive Protein 2.11 H (<=0.50) mg/dL Total Protein 7.0 (6.4-8.2) g/dL Albumin 3.4 (3.4-5.0) g/dL Globulin 3.6 g/dL Albumin/Globulin Ratio 0.9 Discharge Plan Discharge Chief Complaint: Extremity Problem, Nontraumatic Clinical Impression: Closed hip fracture, Fracture of left hip due to osteoporosis with delayed healing Patient Disposition: [facility] Time of Disposition Decision: 16:26
--- NOTE | 2024-12-01 12:28 | CT_ITS ---
The [address] [address] Patient Name: ELENA TREJO MRN: [id number] date: 1965 Sex: M Assigned Patient Location: ER Current Patient Location: Accession/Order Number: [id number] Exam Date: 12/01/2024 12:55 Report Date: 12/01/2024 13:06 At the request of: CARMENCITA PAYTON MD Procedure: CT pelvis wo con CT PELVIS WITHOUT CONTRAST WITH 3-D RECONSTRUCTIONS CLINICAL DATA: Follow-up right hip fracture COMPARISON: Plain films 12/01/[address] images were obtained through the pelvis. Sagittal, coronal and 3-D volume rendered reconstructions were reviewed. This CT exam was performed using one or more following dose reduction techniques: Automated exposure control, adjustment of the mA and/or kV according to patient size, or use of iterative reconstruction technique. The bony structures are osteopenic. There is narrowing of the joint spaces bilaterally. There is subchondral sclerosis and lucency at both femoral heads with collapse of the articular surfaces. Minor subchondral cystic change and hypertrophy is present at the superior acetabula. There is a subcapital fracture at the right hip, without significant displacement. There is also believed to be fracture along the anterolateral aspect of the femoral head on the left. No other acute pelvic fractures are seen in the field of view. No dislocation is noted. There is minor sclerosis at the SI joints. Postoperative changes with posterior rods and pedicle crews are seen at the lower imaged lumbar spine. There is a right hip joint effusion. No hematoma is identified. There are small inguinal lymph nodes. There is an under distended urinary bladder with apparent wall thickening. No pelvic ascites is seen. CT/CT pelvis wo con IMPRESSION: DEGENERATIVE CHANGES AT BOTH HIPS WITH SUSPECTED UNDERLYING AVASCULAR NECROSIS. BILATERAL PROXIMAL FEMUR FRACTURES, RIGHT WORSE THAN LEFT. Impression dictated by: Halie Traylor M.D. 12/01/2024 1:06 PM Dictation Location: [place] [address] Electronically authenticated by: [id number] Y Date: 12/01/2024 13:06
[2024-12-01 13:56] VITALS: BP 136/85; PULSE 67; O2SAT 95
[2024-12-01 17:34] VITALS: BP 159/96; PULSE 87; O2SAT 98
== END 2024-12-01 19:36 | disposition short-term general hospital (02) ==
PROVIDERS: Emergency Provider Emergency Medicine; PCP Family Medicine
DX: S72.001A Fracture of unspecified part of neck of right femur, initial encounter for closed fracture (principal); W07.XXXA Fall from chair, initial encounter; Z87.891 Personal history of nicotine dependence; M80.052G Age-related osteoporosis with current pathological fracture, left femur, subsequent encounter for fracture with delayed healing; R22.41 Localized swelling, mass and lump, right lower limb
CPT/HCPCS: 36415; 72192; 73502; 73552; 80053; 85025; 85610; 85652; 86140; 93971; 96374; 96375; 96376; 99285; J1171; J1885; J2270

== ENCOUNTER 2024-12-18 13:16 | Outpatient (RCR) | payer MEDICARE, SELFPAY | END 2024-12-24 10:24 | disposition home or self-care (01) | LOC: OT 13:16 | PROVIDERS: PCP Family Medicine; Visit Provider Physical Medicine & Rehabilitation | DX: M25.551 Pain in right hip (principal) | CPT/HCPCS: 97165 ==

== ENCOUNTER 2024-12-18 13:17 | Outpatient (RCR) | payer MEDICARE, SELFPAY | END 2025-01-07 10:20 | disposition home or self-care (01) | LOC: PT 13:17 | PROVIDERS: PCP Family Medicine; Visit Provider Physical Medicine & Rehabilitation | DX: M25.551 Pain in right hip (principal) | CPT/HCPCS: 97110; 97112; 97116; 97163; 97530 ==

== ENCOUNTER 2025-04-22 15:19 | Outpatient (OUT) | payer MEDICARE, SELFPAY ==
--- NOTE | 2025-04-22 15:27 | US_ITS ---
[address] [address] Patient Name: ELENA TREJO MRN: [id number] date: 1965 Sex: M Assigned Patient Location: US Current Patient Location: US Accession/Order Number: [id number] Exam Date: 04/22/2025 15:30 Report Date: 04/22/2025 19:19 At the request of: PEE LAKHANI MD Procedure: US appendix Targeted ultrasound right lower quadrant INDICATION: Right lower quadrant pain COMPARISON: None FINDINGS: Peristalsing bowel loops. Normal appendix not visualized. No loculated fluid collection within the [id number]. US/US appendix IMPRESSION: Appendix not visualized. Recommend further evaluation as clinically warranted. Impression dictated by: Nikos Rivera M.D. 04/22/2025 7:19 PM Dictation Location: [place] [address] Electronically authenticated by: [id number] Y Date: 04/22/2025 19:19
--- OUTSIDE RECORDS SUMMARY | 2025-04-22 15:27 | XMS_ITS | CCD ---
Author Organization [facility] Care Team Providers Care Accounting Systems Manager Name Role Phone LESVIA ., DR GLASGOW Attending Unavailable HOY ., DR GLASGOW Primary Care Unavailable HOY ., DR GLASGOW Admitting Unavailable PAY ., DR SAMUEL Admitting Unavailable PAY ., DR SAMUEL Attending Unavailable HOY ., DR GLASGOW Primary Care Unavailable HOY ., DR GLASGOW Consulting Unavailable GRECHNY ., GISSELLE MEZA Consulting Unavailabl e JULIO CESAR BUTCHER Consulting Unavailable HOY ., DR GLASGOW Attending Unavailable HOY ., DR GLASGOW Primary Care Unavailable DANNA, DR ANA Vernon Consulting Unavailable HOY ., DR GLASGOW Admitting Unavailable HOY ., DR GLASGOW Consulting Unavailable JANKI STEEL Consulting Unavailable HOY ., DR GLASGOW Primary Care Unavailable REINECK, DR SHIVA Love Consulting Unavailabl e REINECK, DR SHIVA Love Attending Unavailabl e VIOLETECK, DR SHIVA Love Admitting Unavailabl e JULIO CESAR PARKER Consulting Unavailable PAY ., DR SAMUEL Consulting Unavailable PAY ., DR SAMUEL Attending Unavailable HOY ., DR GLASGOW Primary Care Unavailable PAY ., DR SAMUEL Admshobha Unavailable HOY ., DR GLASGOW Primary Care Unavailable SCARLET, DR SHIVA Love Consulting Unavailabl e REINECK, DR SHIVA Love Attending Unavailabl e REINECK, DR SHIVA Love Admitting Unavailabl e ZINAIDA, DR SHEN Vernon Consulting Unavailable HOY ., [...] Unavailable Dejan CARD, Hernandez Thomas Attending Unavailable Pee Lakhani MD Primary Care Provider Ammon Cochran DO Admit Provider [phone] Justin Garcia MD Other Provider Kassy Mckay MD Other Provider Nishant Ceja DO Other Provider Janki Lam MD Other Provider Rehan Thomas DO Other Provider Luis Alberto Hearn MD Attending Provider Maria Del Rosario Hernandez MD Other Provider Jose Antonio Camara MD Other Provider Gloria Arrington APRN Other Provider Levi Waterman DO Other Provider [phone] Paco Jimenez MD Other Provider [phone] Paco Jimenez MD Admit Provider Tony CARD, Paco Ace Attending Provider Dave RN, Padmini Other Provider Unavailable Yony RN, Annemarie Other Provider Unavailable Rah RN, Angle Other Provider Unavailable Anushka RN, Cindy Other Provider Unavailable Lux RN, Lena Other Provider Unavailable Jax RN, Liv Other Provider Unavailable Long CARD, Yonis Other Provider Kenzie Duffy DO Other Provider [phone] Bradley CARD, Tom Other Provider Connor Oliveros DO Other Provider [phone] Dhiraj CARD, Luis Alberto Other Provider [phone] Nick CARD, Brie Other Provider Ammon Quiros DO Other Provider Oscar CARD, Phil Other Provider Unavailable Danyell Daniels APRN Other Provider [phone] Tracie CARD, Yakov Other Provider [phone] Juan Pablo Hatch MD Other Provider Ruperto CARD, Leeanna Other Provider Unavailable Luisa CARD, Vin Other Provider Ammon Cochran DO Other Provider Reyes Tracey MD Other Provider Kyle Huerta MD Other Provider Kailey BANQUET SERVER-C, Sis Granados Other Provider Justyn QUILES, Yamilet Hopkins Other Provider Unavailable J Luis Hebert MD Other Provider Fermín Hope MD Other Provider Marily CARD, Tino Other Provider Nicole CARD, Marline Other Provider Unavailable Yan Joel MD Other Provider Trinity Tai DO Other Provider Andres Flroes DO Other Provider [phone] Reshma Marin APRN Other Provider Az Bai DO Other Provider [phone] Roselyn CARD, Luciana Hopkins Other Provider Diana Forde APRN Other Provider Mary QUILES, Lorena Beasley Other Provider David CARD, Amaury Other Provider Unavailable Inna CARD, Ruben Granados Other Provider [phone] Savage DOMichael Other Provider [phone] Lesley Rea DO Other Provider Marily CARD, Gavin Campbell Other Provider Hernandez Sampson MD Other Provider Shannon QUILES, Marti Other Provider Unavailable Ivonne Castro MD Other Provider Ander Light MD Other Provider Jose Antonio Dacosta MD Other Provider Phil Shaikh MD Other Provider Juan M Elise MD Other Provider Praveena Mast APRN Other Provider Yeimi Smith APRN Other Provider Teresa RAIN, Mariam Other Provider Unavailable Jose Antonio Camara MD Attending Provider [phone] Nishant Ceja DO Attending Provider Nishant Ceja DO Attending Provider Luis Alberto Hearn MD Other Provider [phone] Jose Antonio Camara MD Attending Provider Paco Jimenez MD Attending Provider Levi Waterman DO Other Provider UnavailJuan Pablo Diamond MD Other Provider Unavailable Tino Calixto MD Other Provider Unavailable Marycruz CARD, Yan Other Provider Unavailable Michael Savage DO Other Provider Unavailable Nadege CARD, Ander Other Provider Unavailable Reina CARD, Ammon Attending Provider Ammon Huang MD Other Provider Nishant Ceja DO Admit Provider Pee Lakhani MD Primary Care Provider [phone] Paco Jimenez MD Other Provider Nishant Ceja DO Attending Provider Nishant Ceja DO Other Provider Unavailable Primary Care Provider UnavailBARBARA Álvarez Referring Unavailable MARITZA, JYOTI Referring Unavailable BARBARA WILLS Referring Unavailable MARITZA, JYOTI Referring Unavailable MARITZA, JYOTI Referring Unavailable MARITZA, JYOTI Referring Unavailable BARBARA WILLS Referring Unavailable MARITZA, JYOTI Referring Unavailable BARBARA WILLS Referring Unavailable BETTY HUI Attending Unavailable ELISABETH VIDAL Attending Unavailable BARBARA WILLS Referring Unavailable MARITZA, JYOTI Referring Unavailable FRANCES ROSEN Attending Unavailable FRANCES ROSEN Attending Unavailable Pee Lakhani Primary Care Unavailable Justin Garcia Consulting Unavailable Ammon Cochran Admitting Unavailable Luis Alberto Hearn Attending Unavailable Kassy Mckay Consulting Unavailable Nishant Ceja Consulting Unavailable Janki Lam II Consulting UnavailRehan Chatman Consulting Unavailable Maria Del Rosario Hernandez Consulting Unavailable Jose Antonio Camara Consulting Unavailable Gloria Arrington Consulting Unavailable Levi Waterman Jr Consulting UnavailaPco Lee Consulting Unavaila Paco Payne Admitting Unavaila Pee Jones Primary Care Unavailable Padmini Acosta Consulting Unavailable Jose Antonio Camara Attending Unavailable Annemarie Bhakta Consulting Unavailable Angle Monreal Consulting Unavailable Cindy Reveles Consulting Unavailable Lena Wasserman Consulting Unavailable Liv Camara Consulting Unavailable Yonis Alves Consulting Unavailable Kenzie Duffy Consulting Unavailable Tom Huerta Consulting Unavailable Connor Oliveros Consulting UnavailLuis Alberto Rust Consulting Unavailable Brie Romero Consulting Unavailable Ammon Quiros Consulting Unavailable Phil Moore Consulting Unavailable Danyell Daniels Consulting UnavailYakov Shi Consulting Unavailable Juan Pablo Hatch Consulting Unavailable Leeanna Hickey Consulting Unavailable Vin Moran Consulting Unavailable Ammon Cochran Consulting Unavailable Reyes Tracey Consulting Unavailable Kyle Huerta Consulting Unavailable Sis Bonner Consulting Unavailable Yamilet Alejandra Consulting Unavailable J Luis Hebert Consulting Unavailab Fermín Verde Consulting Unavailable Tino Calixto Consulting Unavailable Marline Rivera Consulting Unavailable Yan Joel Consulting Unavailable Trinity Tai Consulting Unavailable Andres Flores Consulting Unavailable Reshma Marin Consulting Unavailable Az Bai Consulting Unavailable Luciana Dempsey Consulting Unavailable Diana Forde Consulting Unavailable Lorena Hernandez Consulting Unavailable Amaury Hernandez Consulting Unavailable Ruben Keith Consulting Unavailable Michael Savage Consulting Unavailable Lesley Rea Consulting Unavailable Gavin Calixto Consulting Unavailable Hernandez Sampson Consulting Unava susyable Marti Ortega Consulting Unavailable Ivonne Castro Consulting Unavailable Ander Light Consulting Unavailable Jose Antonio Dacosta Consulting Unavailable Phil Shaikh Consulting Unavailable Juan M Elise Consulting Unavailable Praveena Mast Consulting Unavailable BolYeimi Tyler Consulting Unavaila Mariam Gardner Consulting Unavailable Pee Lakhani Primary Care Unavailable Nishant Cjea Attending Unavailable Brenna Nishant A Admitting Unavailable Pee Lakhani Primary Care Unavailable Gabriel Cejain A Attending Unavailable Brenna Nishant A Admitting Unavailable Ammon Huang Consulting Unavailable Pee Lakhani Primary Care Unavailable Nishant Ceja A Attending Unavailable Gabriel Cejain A Admitting Unavailable Allergies Allergy Classification Reported Allergen(s) Allergy Type Date of Onset Reaction(s) Facility (10 sources) Penicillins; Translations: [PENICILLINS] Drug allergy (disorder) 5 Swelling of Throat, Rash [facility] (10 sources) strawberry allergenic extract; Translations: [STRAWBERRY] Drug Allergy 6 Unknown Reaction, Hives [facility] (9 sources) Procaine; Translations: [procaine] Drug Allergy 5 Unknown Reaction [facility] (4 sources) Penicillins Drug Allergy 9 Angioedema, Swelling, Unknown [facility] (1 source) Penicillins Drug allergy (disorder) 5 [facility] Repository (1 source) strawberry allergenic extract Drug Allergy 5 [facility] Rep[facility] Medications Current Medications Medication Drug Class(es) Dates Sig (Normalized) Sig (Original) acetaminophen 500 mg oral tablet (17 sources) Start: 12-03-2024 End: 12-12-2024 take 2 tablets by mouth every eight hours as needed for pain Acetaminophen 500 mg Tablet Active 1000 MG PO Q8H as needed for pain 180 30 December 12, 2024 1:20pm Complies with drug therapy albuterol 0.83 mg/ml inhalation solution (4 sources) beta2-Adrenergic Agonist albuterol (2.5 MG/3ML) 0.083% nebulizer solution 3 mL Inhalation four times a day PRN for 30 days Active ascorbic acid 500 mg oral tablet (16 sources) Vitamin C Start: 12-03-2024 End: 12-12-2024 take 1 tablet by mouth twice daily at mealtime Ascorbic Acid (Vitamin C) (Vitamin C) 500 mg Tablet Active 500 MG PO Twice daily with meals 14 7 December 12, 2024 1:20pm Complies with drug therapy aspirin 81 mg chewable tablet (20 sources) Platelet Aggregation Inhibitor, Nonsteroidal Anti-inflammatory Drug Start: 02-11-2025 take 1 tablet by mouth twice daily Aspirin 81 mg tablet,chewable Active 81 MG PO Twice daily 74 37 February 11, 2025 12:00am Complies with drug therapy Start: 12-01-2024 End: 12-12-2024 take 1 tablet by mouth twice daily Aspirin 81 mg tablet Discontinued 81 MG PO Twice daily December 01, 2024 12:00am December 12, 2024 1:20pm aspirin 81 MG ch ewable tablet 81 mg 1 (one) time each day at the same time Active atorvastatin 10 mg oral tablet (12 sources) HMG-CoA Reductase Inhibitor Start: 12-01-2024 take 1 tablet by mouth at bedtime Atorvastatin 10 mg tablet Active 10 MG PO Bedtime December 01, 2024 12:00am Complies with drug therapy calcium carbonate 1500 mg / cholecalciferol 500 unt oral capsule (16 sources) Vitamin D Start: 12-03-2024 End: 12-12-2024 take 1 capsule by mouth twice daily Calcium Carbonate-Vitamin D3 (Calcium 600 With Vitamin D3) 600 mg-12.5 mcg (500 unit) capsule Active 1 CAP PO Twice daily 60 December 12, 2024 1:20pm Complies with drug therapy cyclobenzaprine hydrochloride 10 mg oral tablet (3 sources) Muscle Relaxant Start: 02-11-2025 take 5-10 mg by mouth every eight hours Cyclobenzaprine 10 mg tablet Active 5 - 10 MG PO Q8H 30 February 11, 2025 12:00am Complies with drug therapy diphenhydrAMINE hydrochloride 25 mg oral capsule (8 sources) Histamine-1 Receptor Antagonist Start: 12-01-2024 take 1 capsule by mouth once daily at bedtime Diphenhydramine Hcl (Allergy (Diphenhydramine)) 25 mg capsule Active 25 MG PO Daily at bedtime December 01, 2024 12:00am Complies with drug therapy docusate sodium 100 mg oral capsule (3 sources) Start: 02-11-2025 take 1 capsule by mouth twice daily Docusate Sodium (Colace) 100 mg capsule Active 100 MG PO Twice daily 28 February 11, 2025 12:00am Complies with drug therapy doxycycline hyclate 100 mg oral tablet (3 sources) Tetracycline-clas s Drug Start: 02-11-2025 take 1 tablet by mouth twice daily Doxycycline Hyclate 100 mg tablet Active 100 MG PO Twice daily 14 February 11, 2025 12:00am Complies with drug therapy 24 hr isosorbide mononitrate 30 mg extended release oral tablet (12 sources) Nitrate Vasodilator Start: 12-01-2024 take 1 tablet by mouth in the morning, then take 1 tablet by mouth every twenty-four hours Isosorbide Mononitrate 30 mg tablet extended release 24 hr Active 30 MG PO .am December 01, 2024 12:00am Complies with drug therapy ivermectin 3 mg oral tablet (4 sources) Antiparasitic, Pediculicide Start: 03-06-2025 ivermectin (Stromectol) 3 MG tablet Indications: Rash and other nonspecific skin eruption Take 6 tablets today and repeat in 1 week 6 tablet 1 03/06/2025 Active levothyroxine sodium 0.125 mg oral tablet (12 sources) l-Thyroxine Start: 12-01-2024 take 2 tablets by mouth in the morning Levothyroxine 125 mcg tablet Active 250 MCG PO .am December 01, 2024 12:00am Complies with drug therapy melatonin 12 mg oral tablet (8 sources) Start: 12-01-2024 take 1 tablet by mouth once daily at bedtime Melatonin 12 mg tablet Active 12 MG PO Daily at bedtime December 01, 2024 12:00am Complies with drug therapy metoprolol tartrate 50 mg oral tablet (12 sources) beta-Adrenergic Tarsha Start: 12-01-2024 take 1 tablet by mouth twice daily Metoprolol Tartrate 50 mg tablet Active 50 MG PO Twice daily December 01, 2024 12:00am Complies with drug therapy oxyCODONE hydrochloride 5 mg oral tablet (17 sources) Opioid Agonist Start: 02-11-2025 take 1 tablet by mouth every four hours as needed for pain Oxycodone 5 mg tablet Active 5 MG PO Q4H as needed for Pain 42 7 February 11, 2025 [facility] DO NOT FILL UNTIL 02/23/25 Complies with drug therapy Start: 12-12-2024 take 2 tablets by mo uth every four hours as needed for pain Oxycodone 5 mg Tablet Active 10 MG PO Every 4 hours as needed for Pain Scale 6 - 10 42 7 December 12, 2024 Complies with drug therapy Start: 12-03-2024 End: 12-12-2024 take 1 tablet by mouth every six hours as needed for pain Oxycodone 5 mg Tablet Discontinued 5 MG PO Every 6 hours as needed for Pain Scale 4 - 7 0 December 03, 2024 December 12, 2024 1:21pm predniSONE 5 mg oral tablet (5 sources) Start: 03-04-2025 take 5 tablets by mouth once daily, then take 4 tablets by mouth once daily, then take 3 tablets by mouth once daily, then take 2 tablets by mouth once daily, then take 1 tablet by mouth once daily predniSONE (Deltasone) 5 MG tablet TAKE 5 TABLETS BY MOUTH DAILY FOR 2 DAYS, then TAKE 4 TABLETS BY MOUTH DAILY FOR 2 DAYS, then TAKE 3 TABLETS BY MOUTH DAILY FOR 2 DAYS, then TAKE 2 TABLETS BY MOUTH DAILY FOR 2 DAYS, then TAKE 1 TABLET BY MOUTH DAILY FOR 2 DAYS 03/04/2025 Active tamsulosin hydrochloride 0.4 mg oral capsule (12 sources) alpha-Adrenergic Tarsha Start: 12-01-2024 take 1 capsule by mouth once daily Tamsulosin 0.4 mg capsule Active 0.4 MG PO Daily December 01, 2024 12:00am Complies with drug therapy tiZANidine 4 mg oral tablet (12 sources) Central alpha-2 Adrenergic Agonist Start: 02-13-2025 take 2 tablets by mouth once daily at bedtime tiZANidine (Zanaflex) 4 MG tablet TAKE 2 TABLETS BY MOUTH EVERY DAY AT BEDTIME 02/13/2025 Active Start: 12-01-2024 take 1 tablet by saloni th at bedtime Tizanidine 4 mg tablet Active 4 MG PO Bedtime December 01, 2024 12:00am Complies with drug therapy topiramate 100 mg oral tablet (20 sources) Start: 12-01-2024 take 1 tablet by mouth in the morning Topiramate (Topamax) 100 mg tablet Active 100 MG PO .am December 01, 2024 12:00am Complies with drug therapy Start: 12-01-2024 take 2 tablets by mo uth at bedtime Topiramate 100 mg tablet Active 200 MG PO Bedtime December 01, 2024 12:00am Complies with drug therapy traMADol hydrochloride 50 mg oral tablet (6 sources) Opioid Agonist Start: 02-11-2025 End: 02-11-2025 take 1 tablet by mouth every four hours as needed for pain Tramadol 50 mg tablet Active 50 MG PO Q4H as needed for Pain 42 7 February 11, 2025 12:51pm [facility] okay to fill pre op 02/11/2025 Complies with drug therapy triamcinolone acetonide 1 mg/ml topical cream (6 sources) Corticosteroid Start: 03-06-2025 triamcinolone (Kenalog) 0.1 % cream Indications: Rash and other nonspecific skin eruption Apply (1g) to affected areas (legs/arms), up to twice a day when flared, do not use one the face, groin, or underarms, 30 day supply 454 g 3 03/06/2025 Active Start: 02-25-2025 Triamcinolone Acetonide 0.5 % cream Active 1 APPLIC TOPICAL Twice daily 15 February 25, 2025 12:00am Complies with drug therapy Completed/Discontinued Medications Medication Drug Class(es) Dates Sig (Normalized) Sig (Original) 120 actuat budesonide 0.16 mg/actuat / formoterol fumarate 0.0045 mg/actuat metered dose inhaler (8 sources) Corticosteroid, beta2-Adrenergic Agonist Start: 12-12-2024 End: 02-06-2025 take 1 puff(s) by inhalation twice daily Budesonide-Formote rol (Symbicort) 160-4.5 mcg/actuation Hfa Aerosol Inhaler Discontinued 2 PUFF INHALATION Twice daily 10.2 December 12, 2024 12:00am February 06, 2025 12:16pm diclofenac sodium 75 mg delayed release oral tablet (20 sources) Nonsteroidal Anti-inflammatory Drug Start: 12-01-2024 End: 12-12-2024 take 1 tablet by mouth once daily Diclofenac Sodium 75 mg tablet,delayed release (DR/EC) Discontinued 75 MG PO Daily December 03, 2024 11:46am December 12, 2024 1:20pm take 1 tablet by saloni th twice daily as needed diclofenac (Voltaren) 75 MG EC tablet Ta ke 75 mg by mouth 2 (two) times a day as needed Active docusate sodium 50 mg / sennosides, skilled nursing 8.6 mg oral tablet (8 sources) Start: 12-03-2024 End: 12-12-2024 take 2 tablets by mouth twice daily Sennosides-Docusate Sodium 8.6-50 mg Tablet Discontinued 2 TAB PO Twice daily 0 December 03, 2024 12:00am December 12, 2024 1:21pm polyethylene glycol 3350 22171 mg powder for oral solution (8 sources) Osmotic Laxative Start: 12-03-2024 End: 02-06-2025 Polyethylene Glycol 3350 (Healthylax) 17 gram Powder In Packet Discontinued 17 GM PO Daily December 03, 2024 12:00am February 06, 2025 12:17pm rivaroxaban 10 mg oral tablet (8 sources) Factor Xa Inhibitor Start: 12-03-2024 End: 12-12-2024 take 1 tablet by mouth once daily Rivaroxaban (Xarelto) 10 mg Tablet Discontinued 10 MG PO Daily 0 December 03, 2024 12:00am December 12, 2024 1:21pm Problems Active Problems Problem Classification Problem Date Documented Date Episodic/Chronic Acute and unspecified renal failure (1 source) Acute kidney failure, unspecified; Translations: [ACUTE KIDNEY FAILURE UNSPECIFIED] Onset: 12-04-2022 Episodic Alcohol-related disorders (20 sources) Alcohol dependence, uncomplicated; Translations: [Alcohol dependence] Onset: 10-31-2022 12-01-2024 Chronic Chronic obstructive pulmonary disease and bronchiectasis (18 sources) Emphysema, unspecified; Translations: [Chronic obstructive lung disease] Onset: 12-04-2022 12-04-2024 Chronic Conduction disorders (2 sources) Atrioventricular block, second degree; Translations: [Atrioventricular block, second degree] Onset: 04-20-2023 Chronic Congestive heart failure; nonhypertensive (1 source) Unspecified diastolic (congestive) heart failure; Translations: [UNSPECIFIED DIASTOLIC HEART FAILURE] Onset: 04-19-2022 Chronic Coronary atherosclerosis and other heart disease (17 sources) Coronary arteriosclerosis; Translations: [Atherosclerotic heart disease of [place] coronary artery without angina pectoris] Onset: 12-03-2024 12-04-2024 Chronic Diseases of white blood cells (1 source) Elevated white blood cell count, unspecified; Translations: [ELEVATED WHITE BLOOD CELL COUNT UNS] Onset: 04-18-2022 Chronic Disorders of lipid metabolism (20 sources) Hyperlipidemia; Translations: [Hyperlipidemia, unspecified] Onset: 04-20-2023 12-04-2024 Chronic E Codes: Fall (1 source) Unspecified fall, initial encounter; Translations: [UNSPECIFIED FALL INITIAL ENCOUNTER] Onset: 12-04-2022 Episodic Epilepsy; convulsions (20 sources) Epilepsy, unspecified, not intractable, without status epilepticus; Translations: [Seizure disorder] Onset: 12-04-2022 12-11-2024 Chronic Essential hypertension (20 sources) Essential (primary) hypertension; Translations: [Hypertensive disorder] Onset: 12-04-2022 12-11-2024 Chronic Fluid and electrolyte disorders (10 sources) Hypo-osmolality and hyponatremia; Translations: [Dehydration] Onset: 04-18-2022 12-01-2024 Episodic Headache; including migraine (1 source) Headache; including migraine; Translations: [HEADACHE UNSPECIFIED] Onset: 04-05-2022 Hyperplasia of prostate (20 sources) Benign prostatic hyperplasia; Translations: [Benign prostatic hyperplasia without lower urinary tract symptoms] Onset: 12-01-2024 12-01-2024 Chronic Hypertension with complications and secondary hypertension (1 [...] Translations: [HORMONE REPLACEMENT THERAPY] Onset: 12-04-2022 Episodic Osteoarthritis (1 source) Unilateral primary osteoarthritis, left hip; Translations: [UNI PRIM OSTEOARTHRITIS LT HIP] Onset: 10-29-2022 Chronic Other aftercare (1 source) Other long-term (current) drug therapy; Translations: [OTH ASSISTED CURRENT DRUG THERAPY] Onset: 12-04-2022 Episodic Other bone disease and musculoskeletal deformities (20 sources) Avascular necrosis of bone; Translations: [Idiopathic aseptic necrosis of unspecified bone] 12-11-2024 Chronic Other bone disease and musculoskeletal deformities (7 sources) Idiopathic aseptic necrosis of unspecified bone; Translations: [Aseptic necrosis of bone, site unspecified] Onset: 12-01-2024 12-03-2024 Chronic Other bone disease and musculoskeletal deformities (20 sources) Avascular necrosis of bone of hip; Translations: [Idiopathic aseptic necrosis of right femur] 12-18-2024 Chronic Other bone disease and musculoskeletal deformities (2 sources) Idiopathic aseptic necrosis of right femur; Translations: [Aseptic necrosis of head and neck of femur] 12-22-2024 Chronic Other bone disease and musculoskeletal deformities (2 sources) Idiopathic aseptic necrosis of left femur; Translations: [Aseptic necrosis of head and neck of femur] 12-22-2024 Chronic Other connective tissue disease (20 sources) History of total hip arthroplasty; Translations: [Presence of unspecified artificial hip joint] 12-11-2024 Chronic Other connective tissue disease (7 sources) Presence of unspecified artificial hip joint; Translations: [Hip joint replacement] Onset: 12-01-2024 12-03-2024 Chronic Other connective tissue disease (2 sources) Presence of right artificial hip joint; Translations: [Hip joint replacement] 12-22-2024 Chronic Other connective tissue disease (1 source) Arthrodesis status; Translations: [ARTHRODESIS STATUS] Onset: 12-04-2022 Episodic Other diseases of veins and lymphatics (4 sources) Stasis dermatitis; Translations: [Venous insufficiency (chronic) (peripheral)] 02-24-2025 Episodic Other diseases of veins and lymphatics (1 source) Venous insufficiency (chronic) (peripheral); Translations: [Venous insufficiency (chronic) (peripheral)] Onset: 02-24-2025 Episodic Other nervous system disorders (1 source) Other chronic pain; Translations: [OTHER CHRONIC PAIN] Onset: 10-31-2022 Chronic Other skin disorders (3 sources) Eruption; Translations: [Rash and other nonspecific skin eruption] 03-06-2025 Episodic Pneumonia (except that caused by tuberculosis or sexually transmitted disease) (1 source) Pneumonia (except that caused by tuberculosis or sexually transmitted disease); Translations: [PNEUMONIA D/T CORONAVIRUS DIS 2019] Onset: 04-05-2022 Screening and history of mental health and substance abuse codes (1 source) Personal history of nicotine dependence; Translations: [PERSONAL HISTORY OF NICOTINE DEPEND] Onset: 12-04-2022 Episodic Skin and subcutaneous tissue infections (5 sources) Cellulitis of right lower limb; Translations: [Cellulitis of right lower limb] Onset: 02-24-2025 02-24-2025 Episodic Spondylosis; intervertebral disc disorders; other back [...] CIGARETTES UNCOMP] Onset: 10-31-2022 Chronic Thyroid disorders (20 sources) Hypothyroidism, unspecified; Translations: [Hypothyroidism] Onset: 10-31-2022 12-01-2024 Chronic Unclassified (3 sources) CONTACT W/AND (SUSP) EXPOS COVID-19; Translations: [CONTACT W/AND (SUSP) EXPOS COVID-19] Onset: 03-21-2022 Unclassified (3 sources) LOW BACK PAIN, UNSPECIFIED; Translations: [LOW BACK PAIN, UNSPECIFIED] Onset: 10-31-2022 Unclassified (1 source) PERSONAL HISTORY OF COVID-19; Translations: [PERSONAL HISTORY OF COVID-19] Onset: 04-05-2022 Unclassified (2 sources) COUGH, UNSPECIFIED; Translations: [COUGH, UNSPECIFIED] Onset: 03-27-2022 Unclassified (16 sources) Please arrange a follow-up appointment once discharged from rehab. Unclassified (10 sources) Call to schedule follow up appointment with PCP after discharge Unclassified (10 sources) Call to schedule follow up appointment with surgeon after discharge Unclassified (10 sources) Follow up with rehab physician as needed Viral infection (3 sources) COVID-19; Translations: [Disease caused by 2019-nCoV] Onset: 03-27-2022 Past or Other Problems Problem Classification Problem Date Documented Da te Episodic/Chronic Abdominal pain (1 source) Epigastric pain; Translations: [EPIGASTRIC PAIN] Onset: 01-26-2022 Episodic Administrative/social admission (17 sources) Other reduced mobility; Translations: [Impaired mobility and activities of daily living] Onset: 12-03-2024 12-04-2024 Episodic Bacterial infection; unspecified site (3 sources) [...] unspecified; Translations: [ANEMIA UNSPECIFIED] Onset: 04-19-2022 Episodic Fracture of neck of femur (hip) (20 sources) Fracture of neck of femur; Translations: [Fracture of unspecified part of neck of unspecified femur, initial encounter for closed fracture] Onset: 12-01-2024 12-11-2024 Episodic Mycoses (1 source) Other specified mycoses; [...] [SHORTNESS OF BREATH] Onset: 04-05-2022 Episodic Other lower respiratory disease (2 sources) Other forms of dyspnea; Translations: [Other forms of dyspnea] Onset: 10-01-2024 Episodic Other non-traumatic joint disorders (20 sources) Pain in right shoulder; Translations: [Right shoulder pain] Onset: 12-22-2024 12-22-2024 Episodic Other screening for suspected conditions (not mental disorders or infectious disease) (1 source) Other specified abnormal findings of blood chemistry; Translations: [OTH SPEC ABNORMAL FINDINGS BLD CHEM] Onset: 04-18-2022 Episodic Pneumonia (except that caused by tuberculosis or sexually transmitted disease) (4 sources) Pneumonia, unspecified organism; Translations: [PNEUMONIA UNSPECIFIED ORGANISM] Onset: 04-15-2022 Episodic Residual codes; unclassified (1 source) Other specified health status; Translations: [Other specified health status] Onset: 12-03-2024 Episodic Syncope (2 sources) Syncope and collapse; Translations: [Syncope and collapse] Onset: 09-24-2023 Episodic Unclassified (1 source) LOW BACK PAIN, UNSPECIFIED; Translations: [LOW BACK PAIN, UNSPECIFIED] Onset: 10-27-2022 Unclassified (1 source) COUGH, UNSPECIFIED; Translations: [COUGH, UNSPECIFIED] Onset: 03-23-2022 Unclassified (1 source) CONTACT W/AND (SUSP) EXPOS COVID-19; Translations: [CONTACT W/AND (SUSP) EXPOS COVID-19] Onset: 03-17-2022 Results Test Name Value Interpretation Reference Range Facility Lesion biopsyon 04-13-2025 Type of biopsy: pun h Informed consent: discussed and consent obtained Informed consent comment: The risks and benefits were discussed. Risks include, but are not limited to, bleeding, infection, scarring, pain, & nerve damage. An opportunity to ask questions prior to the procedure was permitted and questions were answered. Patient was prepped and draped in usual sterile fashion: Area cleansed with alcohol. Anesthesia: the lesion was anesthetized in a standard fashion Anesthetic: 1% lidocaine w/ epinephrine 1-100,000 buffered w/ 8.4% NaHCO3 Punch size: 4 mm (A biopsy by punch method was performed using a dermal punch) Suture size: 4-0 Suture type: nylon Suture type comment: Hemostasis was achieved with suture. Suture removal (days): 10 Hemostasis achieved with: suture Outcome: patient tolerated procedure well Post-procedure details: sterile dressing applied and wound care instructions given Post-procedure details comment: Emphasized the need to contact clinic for any signs of infection, uncontrollable bleeding, or complications. Dressing type: bandage Additional details: Amount of lidocaine used: 1.0 cc Number of sutures used: 2 Specimen sent for: H&E Photo taken [facility] Orders Onlyon 03-09-2025 Orders Only [id number] Rehan Trejo 1965 M Date Provider Department Center 03/09/2025 [facility] CARD [facility] No family history on file Normal [facility] Basic Metabolic Panelon 02-13 Creatinine Clr Calc Pharmacy 123.16 Normal [facility] Comment on above: Result Comment: PERF ORMED BY: [address] [id number] PATHOLOGIST DIRECTOR MARKETING SOFIE MONTEIRO M.D. Performed By: #### C BC, CMP wRFX A1C #### [facility] [address] [place] [address] [place] GFR/1.73 sq M.predicted MDRD (S/P/Bld) [Vol rate/Area] mL/min/{1.73_m2} Normal [facility] Comment on above: Performed By: #### C BC, CMP wRFX A1C #### [facility] [address] [place] [address] [place] Basophils [#/volume] in Bloo d by Automated countOrdered By: Nishant Ceja on 02-25-2025 Basophils (Bld) [#/Vol] 0.0 10*3/uL Normal 0.0-0.2 [facility] Comment on above: Result Comment: PERF ORMED BY: [place] [address] PATHOLOGIST DIRECTOR MARKETING SOFIE MONTEIRO M.D. Performed By: #### C BC, CMP wRFX A1C #### [place] [address] [place] Basophils/100 leukocytes in Blood by Automated countOrdered By: Nishant Ceja on 02-25-2025 Basophils/100 WBC (Bld) 0.5 % Normal . [facility] Comment on above: Performed By: #### C BC, CMP wRFX A1C #### [place] [address] [place] Calcium [Mass/volume] in Ser um or PlasmaOrdered By: Nishant Ceja on 02-25-2025 Calcium [Mass/Vol] 8.2 mg/dL Low 8.6-10.3 [facility] Comment on above: Performed By: #### C BC, CMP wRFX A1C #### [facility] [address] [place] [address] [place] Carbon dioxide, total [Moles /volume] in Serum or PlasmaOrdered By: Nishant Ceja on 02-25-2025 CO2 [Moles/Vol] 19.9 mmol/L Low 21.0-31.0 [facility] Comment on above: Performed By: #### C BC, CMP wRFX A1C #### [facility] [address] [place] [address] [place] Chloride [Moles/volume] in S florencio or PlasmaOrdered By: Nishant Ceja on 02-25-2025 Chloride [Moles/Vol] 102 mmol/L Normal 98-107 [facility] Comment on above: Performed By: #### C BC, CMP wRFX A1C #### [facility] [address] Complete Blood Count Auto Di ffon 02-25-2025 Mean Corpuscular HGB Conc 33.4 g/dL Normal 32.5-35.6 [facility] Comment on above: Performed By: #### C BC, CMP wRFX A1C #### [facility] [address] NRBC% 0.1 /100{WBC} Normal 0-0.5 [facility] Comment on above: Performed By: #### C BC, CMP wRFX A1C #### [facility] [address] White Blood Count 6.9 [CFU]/mL Normal 4.1-10.5 [facility] Comment on above: Performed By: #### C BC, CMP wRFX A1C #### [facility] [address] [place] [address] Creatinine [Mass/volume] in Serum or PlasmaOrdered By: Nishant Ceja on 02-25-2025 Creatinine [Mass/Vol] 0.76 mg/dL Normal 0.70-1.30 [facility] Comment on above: Performed By: #### C BC, CMP wRFX A1C #### [facility] [address] [place] [address] Eosinophils [#/volume] in Bl ood by Automated countOrdered By: Nishant Ceja on 02-25-2025 Eosinophils (Bld) [#/Vol] 0.6 10*3/uL High 0.0-0.45 [facility] Comment on above: Performed By: #### C BC, CMP wRFX A1C #### [facility] [address] [place] [address] [place] Eosinophils/100 leukocytes i n Blood by Automated countOrdered By: Nishant Ceja on 02-25-2025 Eosinophils/100 WBC (Bld) 8.6 % Normal . [facility] Comment on above: Performed By: #### C BC, CMP wRFX A1C #### [facility] [address] Erythrocyte distribution wid th [Ratio] by Automated countOrdered By: Nishant Ceja on 02-25-2025 Erythrocyte distribution width (RBC) [Ratio] 13.5 % Normal 12.0-14.8 [facility] Comment on above: Performed By: #### C BC, CMP wRFX A1C #### [facility] [address] Erythrocytes [#/volume] in B lood by Automated countOrdered By: Nishant Ceja on 02-25-2025 RBC (Bld) [#/Vol] 4.31 10*6/uL Normal 3.90-5.[address] [facility] Comment on above: Performed By: #### C BC, CMP wRFX A1C #### [address] Glucose [Mass/volume] in Ser um or PlasmaOrdered By: Nishant Ceja on 02-25-2025 Glucose [Mass/Vol] 77 mg/dL Normal 70-100 [facility] Comment on above: ADA recommended refe rence rangeRandom Glucose Reference Range is dependent on time and content of last meal. Glucose of more than 200 mg/dL in a nonstressed, ambulatory subject supports the diagnosis of Diabetes Mellitus. Result Comment: [place] om Glucose Reference Range is dependent on time and content of last meal. Glucose of more than 200 mg/dL in a nonstressed, ambulatory subject supports the diagnosis of Diabetes Mellitus. ADA recommended reference range Performed By: #### C BC, CMP wRFX A1C #### [facility] [address] [place] [address] [place] Hematocrit [Volume Fraction] of Blood by Automated countOrdered By: Nishant Ceja on 02-25-2025 Hematocrit (Bld) [Volume fraction] 42.9 % Normal 38.8-50.0 [facility] Comment on above: Performed By: #### C BC, CMP wRFX A1C #### [facility] [address] [place] [address] [place] Hemoglobin [Mass/volume] in BloodOrdered By: Nishant Ceja on 02-25-2025 Hemoglobin (Bld) [Mass/Vol] 14.3 g/dL Normal 13.0-17.0 [facility] Comment on above: Performed By: #### C BC, CMP wRFX A1C #### [facility] [address] [place] [address] [place] Leukocytes [#/volume] correc kwaku for nucleated erythrocytes in Blood by Automated counOrdered By: Nishant Ceja on 02-25-2025 WBC corrected for nucl RBC Auto (Bld) [#/Vol] 6.9 10*3/uL 4.1-10.5 [facility] Leukocytes [#/volume] in Blo od by Automated countOrdered By: Nishant Ceja on 02-25-2025 WBC (Bld) [#/Vol] 6.9 10*3/uL Normal 4.1-10.5 [facility] Comment on above: Performed By: #### C BC, CMP wRFX A1C #### [facility] [address] [place] [address] [place] Lymphocytes [#/volume] in Bl ood by Automated countOrdered By: Nishant Ceja on 02-25-2025 Lymphocytes (Bld) [#/Vol] 2.1 10*3/uL Normal 1.00-4.8 [facility] Comment on above: Performed By: #### C BC, CMP wRFX A1C #### [facility] [address] [place] [address] [place] Lymphocytes/100 leukocytes i n Blood by Automated countOrdered By: Nishant Ceja on 02-25-2025 Lymphocytes/100 WBC (Bld) 31.0 % Normal . [facility] Comment on above: Performed By: #### C BC, CMP wRFX A1C #### [facility] [address] [place] [address] [place] MCH [Entitic mass] by Automa kwaku countOrdered By: Nishant Ceja on 02-25-2025 MCH (RBC) [Entitic mass] 33.2 pg Normal 27.5-35.2 [facility] Comment on above: Performed By: #### C BC, CMP wRFX A1C #### [facility] [address] [place] [address] MCHC Auto (RBC) [Mass/Vol]Or dered By: Nishant Ceja on 02-25-2025 MCHC (RBC) [Mass/Vol] 33.4 g/dL 32.5-35.6 [facility] MCV [Entitic volume] by Auto mated countOrdered By: Nishant Ceja on 02-25-2025 MCV (RBC) [Entitic vol] 99.5 fL Normal 83.5-101 [facility] Comment on above: Performed By: #### C BC, CMP wRFX A1C #### [place] [address] [place] Monocytes [#/volume] in Bloo d by Automated countOrdered By: Nishant Ceja on 02-25-2025 Monocytes (Bld) [#/Vol] 0.7 10*3/uL Normal 0.0-0.8 [facility] Comment on above: Performed By: #### C BC, CMP wRFX A1C #### [facility] [address] [place] [address] [place] Monocytes/100 leukocytes in Blood by Automated countOrdered By: Nishant Ceja on 02-25-2025 Monocytes/100 WBC (Bld) 10.5 % Normal . [facility] Comment on above: Performed By: #### C BC, CMP wRFX A1C #### [facility] [address] [place] [address] [place] Neutrophils [#/volume] in Bl ood by Automated countOrdered By: Nishant Ceja on 02-25-2025 Neutrophils (Bld) [#/Vol] 3.4 10*3/uL Normal 1.8-7.7 [facility] Comment on above: Performed By: #### C BC, CMP wRFX A1C #### [facility] [address] [place] [address] [place] Neutrophils/100 leukocytes i n Blood by Automated countOrdered By: Nishant Ceja on 02-25-2025 Neutrophils/100 WBC (Bld) 49.4 % Normal . [facility] Comment on above: Performed By: #### C BC, CMP wRFX A1C #### [facility] [address] No Panel InformationOrdered By: Nishant Ceja on 02-25-2025 Estimated GFR (CKD-EPI) > 60.0 mL/Min [facility] Creatinine Clearance (Chem 123.16 [facility] Nucleated erythrocytes [Pres ence] in Blood by Automated countOrdered By: Nishant Ceja on 02-25-2025 Nucleated RBC Auto Ql (Bld) 0.1 /100{WBC} 0-0.5 [facility] Platelet mean volume [Entiti c volume] in Blood by Automated countOrdered By: Nishant Ceja on 02-25-2025 Platelet mean volume (Bld) [Entitic vol] 8.5 fL Normal 6.6-10.1 [facility] Comment on above: Performed By: #### C BC, CMP wRFX A1C #### [facility] [address] [place] [address] Platelets [#/volume] in Bloo d by Automated countOrdered By: Nishant Ceja on 02-25-2025 Platelets (Bld) [#/Vol] 164 10*3/uL Normal 150-450 [facility] Comment on above: Performed By: #### C BC, CMP wRFX A1C #### [facility] [address] [place] [address] Potassium [Moles/volume] in Serum or PlasmaOrdered By: Nishant Ceja on 02-25-2025 Potassium [Moles/Vol] 4.0 mmol/L Normal 3.5-5.1 [facility] Comment on above: Performed By: #### C BC, CMP wRFX A1C #### [address] Serum or plasma anion gap de terminationOrdered By: Nishant Ceja on 02-25-2025 Anion gap [Moles/Vol] 12.1 mmol/L Normal 6.0-15.0 [facility] Comment on above: Performed By: #### C BC, CMP wRFX A1C #### [facility] [address] [place] [address] [place] Sodium [Moles/volume] in Ser um or PlasmaOrdered By: Nishant Ceja on 02-25-2025 Sodium [Moles/Vol] 130 mmol/L Low 136-145 [facility] Comment on above: Performed By: #### C BC, CMP wRFX A1C #### [facility] [address] [place] [address] [place] Urea nitrogen [Mass/volume] in Serum or PlasmaOrdered By: Nishant Ceja on 02-25-2025 Urea nitrogen [Mass/Vol] 11 mg/dL Normal 7-25 [facility] Comment on above: Performed By: #### C BC, CMP wRFX A1C #### [facility] [address] Basic Metabolic Panelon 02-13 Anion gap [Moles/Vol] 8.9 mmol/L Normal 6.0-15.0 [facility] Comment on above: Performed By: #### C BC, BMP #### [facility] [address] [place] [address] [place] Calcium [Mass/Vol] 8.7 mg/dL Normal 8.6-10.3 [facility] Comment on above: Performed By: #### C BC, BMP #### [facility] [address] [place] [address] [place] Chloride [Moles/Vol] 98 mmol/L Normal 98-107 [facility] Comment on above: Performed By: #### C BC, BMP #### [facility] [address] [place] [id number] [place] CO2 [Moles/Vol] 24.2 mmol/L Normal 21.0-31.0 [facility] Comment on above: Performed By: #### C BC, BMP #### [facility] [address] [place] [id number] [place] Creatinine [Mass/Vol] 0.63 mg/dL Low 0.70-1.30 [facility] Comment on above: Performed By: #### C BC, BMP #### [address] Creatinine Clr Calc Pharmacy 148.04 Normal [facility] Comment on above: Result Comment: PERF ORMED BY: [place] [address] PATHOLOGIST DIRECTOR MARKETING SOFIE MONTEIRO M.D. Performed By: #### C BC, BMP #### [place] [address] [place] GFR/1.73 sq M.predicted MDRD (S/P/Bld) [Vol rate/Area] mL/min/{1.73_m2} Normal [facility] Comment on above: Performed By: #### C BC, BMP #### [address] Glucose [Mass/Vol] 88 mg/dL Normal 70-100 [facility] Comment on above: Result Comment: [facility] Glucose Reference Range is dependent on time and content of last meal. Glucose of more than 200 mg/dL in a nonstressed, ambulatory subject supports the diagnosis of Diabetes Mellitus. ADA recommended reference range Performed By: #### C BC, BMP #### [address] Potassium [Moles/Vol] 4.1 mmol/L Normal 3.5-5.1 [facility] Comment on above: Performed By: #### C BC, BMP #### [place] [address] [place] Sodium [Moles/Vol] 127 mmol/L Low 136-145 [facility] Comment on above: Performed By: #### C BC, BMP #### [place] [address] [place] Urea nitrogen [Mass/Vol] 7 mg/dL Normal 7-25 [facility] Comment on above: Performed By: #### C BC, BMP #### [place] [address] [place] Complete Blood Count Auto Di ffon 02-24-2025 Basophils (Bld) [#/Vol] 0.1 10*3/uL Normal 0.0-0.2 [facility] Comment on above: Result Comment: PERF ORMED BY: [place] [address] PATHOLOGIST DIRECTOR MARKETING SOFIE MONTEIRO M.D. Performed By: #### C BC, BMP #### [address] Basophils/100 WBC (Bld) 1.2 % Normal . [facility] Comment on above: Performed By: #### C BC, BMP #### [place] [address] [place] Eosinophils (Bld) [#/Vol] 0.6 10*3/uL High 0.0-0.45 [facility] Comment on above: Performed By: #### C BC, BMP #### [address] Eosinophils/100 WBC (Bld) 6.7 % Normal . [facility] Comment on above: Performed By: #### C BC, BMP #### [address] Erythrocyte distribution width (RBC) [Ratio] 13.1 % Normal 12.0-14.8 [facility] Comment on above: Performed By: #### C BC, BMP #### [address] Hematocrit (Bld) [Volume fraction] 42.1 % Normal 38.8-50.0 [facility] Comment on above: Performed By: #### C BC, BMP #### [address] Hemoglobin (Bld) [Mass/Vol] 14.0 g/dL Normal 13.0-17.0 [facility] Comment on above: Performed By: #### C BC, BMP #### [address] Lymphocytes (Bld) [#/Vol] 2.6 10*3/uL Normal 1.00-4.8 [facility] Comment on above: Performed By: #### C BC, BMP #### [place] [address] [place] Lymphocytes/100 WBC (Bld) 29.7 % Normal . [facility] Comment on above: Performed By: #### C BC, BMP #### [address] MCH (RBC) [Entitic mass] 33.4 pg Normal 27.5-35.2 [facility] Comment on above: Performed By: #### C BC, BMP #### [address] MCV (RBC) [Entitic vol] 100.2 fL Normal 83.5-101 [facility] Comment on above: Performed By: #### C BC, BMP #### [address] Mean Corpuscular HGB Conc 33.3 g/dL Normal 32.5-35.6 [facility] Comment on above: Performed By: #### C BC, BMP #### [place] [address] [place] Monocytes (Bld) [#/Vol] 0.8 10*3/uL Normal 0.0-0.8 [facility] Comment on above: Performed By: #### C BC, BMP #### [place] [address] [place] Monocytes/100 WBC (Bld) 8.8 % Normal . [facility] Comment on above: Performed By: #### C BC, BMP #### [place] [id number] [place] Neutrophils (Bld) [#/Vol] 4.7 10*3/uL Normal 1.8-7.7 [facility] Comment on above: Performed By: #### C BC, BMP #### [place] [id number] [facility] Neutrophils/100 WBC (Bld) 53.6 % Normal . [facility] Comment on above: Performed By: #### C BC, BMP #### [address] NRBC% 0.2 /100{WBC} Normal 0-0.5 [facility] Comment on above: Performed By: #### C BC, BMP #### [address] Platelet mean volume (Bld) [Entitic vol] 8.6 fL Normal 6.6-10.1 [facility] Comment on above: Performed By: #### C BC, BMP #### [address] Platelets (Bld) [#/Vol] 186 10*3/uL Normal 150-450 [facility] Comment on above: Performed By: #### C BC, BMP #### [address] RBC (Bld) [#/Vol] 4.20 10*6/uL Normal 3.90-5.60 [facility] Comment on above: Performed By: #### C BC, BMP #### [address] WBC (Bld) [#/Vol] 8.8 10*3/uL Normal 4.1-10.5 [facility] Comment on above: Performed By: #### C BC, BMP #### [address] White Blood Count 8.8 [CFU]/mL Normal 4.1-10.5 [facility] Comment on above: Performed By: #### C BC, BMP #### [place] [address] [place] Alanine aminotransferase [En zymatic activity/volume] in Serum or PlasmaOrdered By: Nishant Ceja on 02-06-2025 ALT [Catalytic activity/Vol] 45 U/L Normal 7-52 [facility] Comment on above: Performed By: #### C BC, CMP wRFX A1C #### [place] [address] [place] Albumin [Mass/volume] in Ser um or Plasma by Bromocresol green (BCG) dye binding methoOrdered By: Nishant Ceja on 02-06-2025 Albumin BCG dye [Mass/Vol] 4.2 g/dL 3.5-5.7 [facility] Alkaline phosphatase [Enzyma tic activity/volume] in Serum or PlasmaOrdered By: Nishant Ceja on 02-06-2025 ALP [Catalytic activity/Vol] 117 U/L High 34-104 [facility] Comment on above: Result Comment: PERF ORMED BY: [place] [address] PATHOLOGIST DIRECTOR MARKETING SOFIE MONTEIRO M.D. Performed By: #### C BC, CMP wRFX A1C #### [address] Appearance of UrineOrdered B y: Nishant Ceja on 02-06-2025 Appearance (U) Clear Normal Clear [facility] Comment on above: Order Comment: Name Collection Type:: Clean-Voided Midstream Performed By: #### C BC, CMP wRFX A1C #### [facility] [address] [place] [address] Aspartate aminotransferase [ Enzymatic activity/volume] in Serum or PlasmaOrdered By: Nishant Ceja on 02-06-2025 AST [Catalytic activity/Vol] 39 U/L Normal 13-39 [facility] Comment on above: Performed By: #### C BC, CMP wRFX A1C #### [facility] [address] [place] [address] [place] Basophils [#/volume] in Bloo d by Automated countOrdered By: Nishant Ceja on 02-06-2025 Basophils (Bld) [#/Vol] 0.1 10*3/uL Normal 0.0-0.2 [facility] Comment on above: Result Comment: PERF ORMED BY: [place] [address] PATHOLOGIST DIRECTOR MARKETING SOFIE MONTEIRO M.D. Performed By: #### C BC, CMP wRFX A1C #### [facility] [address] [place] [address] [place] Basophils/100 leukocytes in Blood by Automated countOrdered By: Nishant Ceja on 02-06-2025 Basophils/100 WBC (Bld) 0.9 % Normal . [facility] Comment on above: Performed By: #### C BC, CMP wRFX A1C #### [facility] [address] Bilirubin Test strip Ql (U)O rdered By: Nishant Ceja on 02-06-2025 Bilirubin Ql (U) Negative Negative [facility] Bilirubin.total [Mass/volume ] in Serum or PlasmaOrdered By: Nishant Ceja on 02-06-2025 Bilirubin [Mass/Vol] 0.6 mg/dL Normal 0.3-1.0 [facility] Comment on above: Performed By: #### C BC, CMP wRFX A1C #### [address] CMP with reflex to A1Con Albumin [Mass/Vol] 4.2 g/dL Normal 3.5-5.7 [facility] Comment on above: Performed By: #### C BC, CMP wRFX A1C #### [address] GFR/1.73 sq M.predicted MDRD (S/P/Bld) [Vol rate/Area] mL/min/{1.73_m2} Normal [facility] Comment on above: Performed By: #### C BC, CMP wRFX A1C #### [facility] [address] [place] [address] Calcium [Mass/volume] in Ser um or PlasmaOrdered By: Nishant Ceja on 02-06-2025 Calcium [Mass/Vol] 9.1 mg/dL Normal 8.6-10.3 [facility] Comment on above: Performed By: #### C BC, CMP wRFX A1C #### [address] Carbon dioxide, total [Moles /volume] in Serum or PlasmaOrdered By: Nishant Ceja on 02-06-2025 CO2 [Moles/Vol] 23.4 mmol/L Normal 21.0-31.0 [facility] Comment on above: Performed By: #### C BC, CMP wRFX A1C #### [address] Chloride [Moles/volume] in S florencio or PlasmaOrdered By: Nishant Ceja on 02-06-2025 Chloride [Moles/Vol] 98 mmol/L Normal 98-107 [facility] Comment on above: Performed By: #### C BC, CMP wRFX A1C #### [address] Color of Urine by AutoOrdere d By: Nishant Ceja on 02-06-2025 Color (U) Light-yellow Normal Yellow [facility] Comment on above: Order Comment: Name Collection Type:: Clean-Voided Midstream Performed By: #### C BC, CMP wRFX A1C #### [address] Complete Blood Count Auto Di ffon 02-06-2025 Mean Corpuscular HGB Conc 33.9 g/dL Normal 32.5-35.6 [facility] Comment on above: Performed By: #### C BC, CMP wRFX A1C #### [address] NRBC% 0.1 /100{WBC} Normal 0-0.5 [facility] Comment on above: Performed By: #### C BC, CMP wRFX A1C #### [address] White Blood Count 5.4 [CFU]/mL Normal 4.1-10.5 [facility] Comment on above: Performed By: #### C BC, CMP wRFX A1C #### [place] [address] [place] Creatinine [Mass/volume] in Serum or PlasmaOrdered By: Nishant Ceja on 02-06-2025 Creatinine [Mass/Vol] 0.78 mg/dL Normal 0.70-1.30 [facility] Comment on above: Performed By: #### C BC, CMP wRFX A1C #### [facility] [address] [id number] [place] ECG 12 lead ECGon 02-06-2025 ECG 12 lead ECG [facility] [place] [address] [id number] Electrocardiograph Report Signed Patient: Rehan Trejo MR#: [id number] : 1965 Acct:[id number] Age/Sex: 60 / M ADM Date: 02/06/25 Loc: PS Room: Type: [facility] Attending Dr: Nishant Ceja DO Ordering Provider: Nishant Ceja DO Date of Service: 02/06/25 ECG/ECG 12 lead ECG: LEFT TOTAL HIP ARTHROPLASTY Copies to: Test Reason : Blood Pressure : */* mmHG Vent. Rate : 92 BPM Atrial Rate : 92 BPM P-R Int : 130 ms QRS Dur : 84 ms QT Int : 370 ms P-R-T Axes : 79 54 56 degrees QTcB Int : 457 ms Normal sinus rhythm Right atrial enlargement Low voltage QRS Nonspecific ST abnormality Abnormal ECG Confirmed by DEEP AMADO MD ([id number]) on 02/06/2025 2:27:52 PM Referred By: Electronically Signed By: DEEP AMADO MD Transcribed By: MUS Signed By Deep Amado MD 0 02/06/25 1427 Normal [facility] Eosinophils [#/volume] in Bl ood by Automated countOrdered By: Nishant Ceja on 02-06-2025 Eosinophils (Bld) [#/Vol] 0.1 10*3/uL Normal 0.0-0.45 [facility] Comment on above: Performed By: #### C BC, CMP wRFX A1C #### [facility] [address] [id number] [place] Eosinophils/100 leukocytes i n Blood by Automated countOrdered By: Nishant Ceja on 02-06-2025 Eosinophils/100 WBC (Bld) 2.4 % Normal . [facility] Comment on above: Performed By: #### C BC, CMP wRFX A1C #### [facility] [address] Erythrocyte distribution wid th [Ratio] by Automated countOrdered By: Nishant Ceja on 02-06-2025 Erythrocyte distribution width (RBC) [Ratio] 13.9 % Normal 12.0-14.8 [facility] Comment on above: Performed By: #### C BC, CMP wRFX A1C #### [facility] [address] [place] [address] [place] Erythrocytes [#/volume] in B lood by Automated countOrdered By: Nishant Ceja on 02-06-2025 RBC (Bld) [#/Vol] 4.08 10*6/uL Normal 3.90-5.[address] [facility] Comment on above: Performed By: #### C BC, CMP wRFX A1C #### [address] Glucose [Mass/volume] in Ser um or PlasmaOrdered By: Nishant Ceja on 02-06-2025 Glucose [Mass/Vol] 82 mg/dL Normal 70-100 [facility] Comment on above: Performed By: #### C BC, CMP wRFX A1C #### [address] Glucose [Mass/volume] in Uri ne by Test stripOrdered By: Nishant Ceja on 02-06-2025 Glucose Test strip (U) [Mass/Vol] Normal mg/dL Normal [facility] Hematocrit [Volume Fraction] of Blood by Automated countOrdered By: Nishant Ceja on 02-06-2025 Hematocrit (Bld) [Volume fraction] 40.9 % Normal 38.8-50.0 [facility] Comment on above: Performed By: #### C BC, CMP wRFX A1C #### [address] Hemoglobin Test strip Ql (U) Ordered By: Nishant Ceja on 02-06-2025 Hemoglobin Ql (U) Negative Negative [facility] Hemoglobin [Mass/volume] in BloodOrdered By: Nishant Ceja on 02-06-2025 Hemoglobin (Bld) [Mass/Vol] 13.8 g/dL Normal 13.0-17.0 [facility] Comment on above: Performed By: #### C BC, CMP wRFX A1C #### [facility] [address] Ketones [Presence] in Urine by Test stripOrdered By: Nishant Ceja on 02-06-2025 Ketones Ql (U) 2+ Normal Negative [facility] Comment on above: Order Comment: Name Collection Type:: Clean-Voided Midstream Performed By: #### C BC, CMP wRFX A1C #### [facility] [address] Leukocyte esterase [Presence ] in Urine by Test stripOrdered By: Nishant Ceja on 02-06-2025 Leukocyte esterase Test strip Ql (U) Negative Normal Negative [facility] Comment on above: Order Comment: Name Collection Type:: Clean-Voided Midstream Performed By: #### C BC, CMP wRFX A1C #### [facility] [address] Leukocytes [#/volume] correc kwaku for nucleated erythrocytes in Blood by Automated counOrdered By: Nishant Ceja on 02-06-2025 WBC corrected for nucl RBC Auto (Bld) [#/Vol] 5.4 10*3/uL 4.1-10.5 [facility] Leukocytes [#/volume] in Blo od by Automated countOrdered By: Nishant Ceja on 02-06-2025 WBC (Bld) [#/Vol] 5.4 10*3/uL Normal 4.1-10.5 [facility] Comment on above: Performed By: #### C BC, CMP wRFX A1C #### [facility] [address] [place] [address] [place] Lymphocytes [#/volume] in Bl ood by Automated countOrdered By: Nishant Ceja on 02-06-2025 Lymphocytes (Bld) [#/Vol] 1.8 10*3/uL Normal 1.00-4.8 [facility] Comment on above: Performed By: #### C BC, CMP wRFX A1C #### [facility] [address] [place] [address] [place] Lymphocytes/100 leukocytes i n Blood by Automated countOrdered By: Nishant Ceja on 02-06-2025 Lymphocytes/100 WBC (Bld) 33.6 % Normal . [facility] Comment on above: Performed By: #### C BC, CMP wRFX A1C #### [place] [address] [place] MCH [Entitic mass] by Automa kwaku countOrdered By: Nishant Ceja on 02-06-2025 MCH (RBC) [Entitic mass] 33.9 pg Normal 27.5-35.2 [facility] Comment on above: Performed By: #### C BC, CMP wRFX A1C #### [address] MCHC Auto (RBC) [Mass/Vol]Or dered By: Nishant Ceja on 02-06-2025 MCHC (RBC) [Mass/Vol] 33.9 g/dL 32.5-35.6 [facility] MCV [Entitic volume] by Auto mated countOrdered By: Nishant Ceja on 02-06-2025 MCV (RBC) [Entitic vol] 100.2 fL Normal 83.5-101 [facility] Comment on above: Performed By: #### C BC, CMP wRFX A1C #### [place] [address] [place] Monocytes [#/volume] in Bloo d by Automated countOrdered By: Nishant Ceja on 02-06-2025 Monocytes (Bld) [#/Vol] 0.5 10*3/uL Normal 0.0-0.8 [facility] Comment on above: Performed By: #### C BC, CMP wRFX A1C #### [place] [address] [place] Monocytes/100 leukocytes in Blood by Automated countOrdered By: Nishant Ceja on 02-06-2025 Monocytes/100 WBC (Bld) 10.1 % Normal . [facility] Comment on above: Performed By: #### C BC, CMP wRFX A1C #### [facility] [address] [place] [address] [place] Neutrophils [#/volume] in Bl ood by Automated countOrdered By: Nishant Ceja on 02-06-2025 Neutrophils (Bld) [#/Vol] 2.8 10*3/uL Normal 1.8-7.7 [facility] Comment on above: Performed By: #### C BC, CMP wRFX A1C #### [facility] [address] [place] [address] [place] Neutrophils/100 leukocytes i n Blood by Automated countOrdered By: Nishant Ceja on 02-06-2025 Neutrophils/100 WBC (Bld) 53.0 % Normal . [facility] Comment on above: Performed By: #### C BC, CMP wRFX A1C #### [facility] [address] Nitrite Test strip Ql (U)Ord ered By: Nishant Ceja on 02-06-2025 Nitrite Ql (U) Negative Negative [facility] No Panel InformationOrdered By: Nishant Ceja on 02-06-2025 Estimated GFR (CKD-EPI) > 60.0 mL/Min [facility] Creatinine Clearance (Chem N/A [facility] Nucleated erythrocytes [Pres ence] in Blood by Automated countOrdered By: Nishant Ceja on 02-06-2025 Nucleated RBC Auto Ql (Bld) 0.1 /100{WBC} 0-0.5 [facility] Platelet mean volume [Entiti c volume] in Blood by Automated countOrdered By: Nishant Ceja on 02-06-2025 Platelet mean volume (Bld) [Entitic vol] 7.9 fL Normal 6.6-10.1 [facility] Comment on above: Performed By: #### C BC, CMP wRFX A1C #### [facility] [address] [place] [address] [place] Platelets [#/volume] in Bloo d by Automated countOrdered By: Nishant Ceja on 02-06-2025 Platelets (Bld) [#/Vol] 225 10*3/uL Normal 150-450 [facility] Comment on above: Performed By: #### C BC, CMP wRFX A1C #### [address] Potassium [Moles/volume] in Serum or PlasmaOrdered By: Nishant Ceja on 02-06-2025 Potassium [Moles/Vol] 4.1 mmol/L Normal 3.5-5.1 [facility] Comment on above: Performed By: #### C BC, CMP wRFX A1C #### [address] Protein Test strip (U) [Mass /Vol]Ordered By: Nishant Ceja on 02-06-2025 Protein (U) [Mass/Vol] Negative Negative [facility] Protein [Mass/volume] in Ser um or PlasmaOrdered By: Nishant Ceja on 02-06-2025 Protein [Mass/Vol] 6.9 g/dL Normal 6.4-8.9 [facility] Comment on above: Performed By: #### C BC, CMP wRFX A1C #### [address] Serum globulin measurement b y calculation (mass/volume)Ordered By: Nishant Ceja on 02-06-2025 Globulin (S) [Mass/Vol] 2.7 g/dL [facility] Comment on above: Performed By: #### C BC, CMP wRFX A1C #### [address] Serum or plasma albumin/glob ulin mass ratioOrdered By: Nishant Ceja on 02-06-2025 Albumin/Globulin [Mass ratio] 1.6 {ratio} [facility] Comment on above: Performed By: #### C BC, CMP wRFX A1C #### [address] Serum or plasma anion gap de terminationOrdered By: Nishant Ceja on 02-06-2025 Anion gap [Moles/Vol] 14.7 mmol/L Normal 6.0-15.0 [facility] Comment on above: Performed By: #### C BC, CMP wRFX A1C #### [facility] [address] [place] [address] [place] Sodium [Moles/volume] in Ser um or PlasmaOrdered By: Nishant Ceja on 02-06-2025 Sodium [Moles/Vol] 132 mmol/L Low 136-145 [facility] Comment on above: Performed By: #### C BC, CMP wRFX A1C #### [address] Specific gravity Test strip (U) [Rel density]Ordered By: Nishant Ceja on 02-06-2025 Specific gravity (U) [Rel density] 1.014 1.001-1.03 0 [facility] Urea nitrogen [Mass/volume] in Serum or PlasmaOrdered By: Nishant Ceja on 02-06-2025 Urea nitrogen [Mass/Vol] 7 mg/dL Normal 02-06 [facility] Comment on above: Performed By: #### C BC, CMP wRFX A1C #### [address] Urinalysison 02-06-2025 Bilirubin,Urine Negative Normal Negative [facility] Comment on above: Order Comment: Name Collection Type:: Clean-Voided Midstream Performed By: #### C BC, CMP wRFX A1C #### [address] Glucose Ql (U) Normal Normal Normal [facility] Comment on above: Order Comment: Name Collection Type:: Clean-Voided Midstream Performed By: #### C BC, CMP wRFX A1C #### [place] [address] [place] Nitrite,Urine Negative Normal Negative [facility] Comment on above: Order Comment: Name Collection Type:: Clean-Voided Midstream Performed By: #### C BC, CMP wRFX A1C #### [address] Occult Blood,Urine Negative Normal Negative [facility] Comment on above: Order Comment: Name Collection Type:: Clean-Voided Midstream Result Comment: PERF ORMED BY: [address] [place] [address] PATHOLOGIST DIRECTOR MARKETING SOFIE MONTEIRO M.D. Performed By: #### C BC, CMP wRFX A1C #### [address] Protein,Urine Negative Normal Negative [facility] Comment on above: Order Comment: Name Collection Type:: Clean-Voided Midstream Performed By: #### C BC, CMP wRFX A1C #### [address] Specificy [place] [facility],Urine 1.014 Normal 1.001-1.03 0 [facility] Comment on above: Order Comment: Name Collection Type:: Clean-Voided Midstream Performed By: #### C BC, CMP wRFX A1C #### [address] Urobilinogen,Urine Normal Normal Normal [facility] Comment on above: Order Comment: Name Collection Type:: Clean-Voided Midstream Performed By: #### C BC, CMP wRFX A1C #### [address] Urobilinogen Test strip (U) [Mass/Vol]Ordered By: Nishant Ceja on 02-06-2025 Urobilinogen (U) [Mass/Vol] Normal mg/dL Normal [facility] pH of Urine by Test stripOrd ered By: Nishant Ceja on 02-06-2025 pH (U) 6.0 [pH] Normal 5.0-9.0 [facility] Comment on above: Order Comment: Name Collection Type:: Clean-Voided Midstream Performed By: #### C BC, CMP wRFX A1C #### [address] 36on 12-30-2024 36 Spoke to patient to see if he had completed his testing ordered by Dr. Vidal. 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 I advised patient that scheduling would be calling him to sched testing and they will transfer him down to us to sched his follow up with Dr. Vidal. Patient verbalized understanding and agreed with plan of care. Normal [facility] X-ray reportOrdered By: Meir Rivera on 12-22-2024 Study report [facility] [address] [place] [address] XRay Report Signed Patient: Rehan Trejo MR#: [id number] : 1965 Acct:[id number] Age/Sex: 59 / M ADM Date: 5 [place] [facility] [place] Type[place] [facility] CLI Attending Dr: Nishant Ceja DO Copies to: Nishant Ceja DO~ Ordering Provider: Nishant Ceja DO Date of Service: 12/22/24 XR/XR shoulder RT min 2V*: M25.511 - Pain in right shoulder RIGHT SHOULDER - - 4 views CLINICAL HISTORY: Pain status post fall COMPARISON: None FINDINGS: No fractures. No dislocation. No significant degenerative change. Visualized right lung apex clear XR/XR shoulder RT min 2V* IMPRESSION: No acute bony process. Impression dictated by: Nikos Rivera M.D. 12/22/2024 10:26 PM Dictation Location: [place] [address] Transcribed By: [facility] 12/22/242225 Dictated By: Nikos Rivera MD 12/22/242224 Signed By: 12/22/242225 [facility] Work Phone: XR shoulder RT min 2V*on XR shoulder RT min 2V* [facility] [place] [address] XRay Report Signed Patient: Rehan Trejo MR#: [id number] : 1965 Acct:[id number] Age/Sex: 59 / M ADM Date: 12/22/24 [place] [facility]: Type: [facility] CLI Attending Dr: Nishant Ceja DO Copies to: Nishant Ceja DO Ordering Provider: Nishant Ceja DO Date of Service: 12/22/24 XR/XR shoulder RT min 2V*: M25.511 - Pain in right shoulder RIGHT SHOULDER - - 4 views CLINICAL HISTORY: Pain status post fall COMPARISON: None FINDINGS: No fractures. No dislocation. No significant degenerative change. Visualized right lung apex clear XR/XR shoulder RT min 2V* IMPRESSION: No acute bony process. Impression dictated by: Nikos Rivera M.D. 12/22/2024 10:26 PM Dictation Location: [facility]-- Transcribed By: [facility] 12/22/242225 Dictated By: Nikos Rivera MD 12/22/242224 Signed By: 12/22/242225 Normal [facility] US venous duplex LE RTon US venous duplex LE RT [facility] [place] [address] Ultrasound Report Signed Patient: Rehan Trejo MR#: [id number] : 1965 Acct:[id number] Age/Sex: 59 / M ADM Date: 12/03/24 Loc: Room: [address] [place] [address] Type: ADM IN Attending Dr: Paco Jimenez MD Ordering Provider: Gloria Arrington APRN Date of Service: 12/10/24 US/US venous duplex LE RT: swelling, postop Copies to: MD Gloria Silva APRN RIGHT LOWER EXTREMITY VENOUS DUPLEX INDICATION: Painful swollen right leg Unilateral right lower extremity venous duplex Doppler study was obtained utilizing B-mode, color- flow and spectral Doppler. FINDINGS: The right common femoral, femoral, and popliteal veins showed adequate compressibility, color-flow and augmentation. The right posterior tibial and peroneal veins were compressible, as well as proximal greater saphenous vein. The contralateral left common femoral vein was compressible with color-flow and augmentation. US/US venous duplex LE RT IMPRESSION: NO EVIDENCE OF DEEP VENOUS THROMBOSIS IN THE RIGHT LOWER EXTREMITY. NO SUPERFICIAL THROMBOPHLEBITIS WAS NOTED. Impression dictated by: Zaire Donnelly M.D. 12/12/2024 11:17 AM Dictation Location: [place] [address] Tech: Ana Rosa Yin Transcribed By: NORI 12/12/241116 Dictated By: Zaire Donnelly MD 12/12/241116 Signed By: 12/12/241116 Normal [facility] Alanine aminotransferase [En zymatic activity/volume] in Serum or PlasmaOrdered By: Paco Jimenez on 12-04-2024 ALT [Catalytic activity/Vol] Alanine aminotransferase [Enzymatic activity/volume] in Serum or Plasma [facility] ALT [Catalytic activity/Vol] 37 U/L Normal [facility] Comment on above: Performed By: #### C BC, CMP wRFX A1C #### [facility] [address] Albumin [Mass/volume] in Ser um or Plasma by Bromocresol green (BCG) dye binding methoOrdered By: Paco Jimenez on 12-04-2024 Albumin BCG dye [Mass/Vol] Albumin [Mass/volume] in Serum or Plasma by Bromocresol green (BCG) dye binding metho Low 3.5-5.7 [facility] Albumin BCG dye [Mass/Vol] 3.2 g/dL Low 3.5-5.7 [facility] Alkaline phosphatase [Enzyma tic activity/volume] in Serum or PlasmaOrdered By: Paco Jimenez on 12-04-2024 ALP [Catalytic activity/Vol] Alkaline phosphatase [Enzymatic activity/volume] in Serum or Plasma 34-104 [facility] ALP [Catalytic activity/Vol] 92 U/L Normal 104 [facility] Comment on above: Performed By: #### C BC, CMP wRFX A1C #### [facility] [address] [place] [address] [place] Aspartate aminotransferase [ Enzymatic activity/volume] in Serum or PlasmaOrdered By: Paco Jimenez on 12-04-2024 AST [Catalytic activity/Vol] Aspartate aminotransferase [Enzymatic activity/volume] in Serum or Plasma [facility] AST [Catalytic activity/Vol] 21 U/L Normal [facility] Comment on above: Performed By: #### C BC, CMP wRFX A1C #### [facility] [address] Basophils Auto (Bld) [#/Vol] Ordered By: Paco Jimenez on 12-04-2024 Basophils (Bld) [#/Vol] Automated basophil count 0.0-0.2 [facility] Basophils [#/volume] in Bloo d by Automated countOrdered By: Paco Jimenez on 12-04-2024 Basophils (Bld) [#/Vol] 0.0 10*3/uL Normal 0.0-0.2 [facility] Comment on above: Result Comment: PERF ORMED BY: [place] [address] PATHOLOGIST DIRECTOR MARKETING MARY DE DIOS M.D. Performed By: #### C BC, CMP wRFX A1C #### [address] Basophils/100 WBC Auto (Bld) Ordered By: Paco Jimenez on 12-04-2024 Basophils/100 WBC (Bld) Automated basophil % . [facility] Basophils/100 leukocytes in Blood by Automated countOrdered By: Paco Jimenez on 12-04-2024 Basophils/100 WBC (Bld) 0.3 % Normal . [facility] Comment on above: Performed By: #### C BC, CMP wRFX A1C #### [address] Bilirubin.total [Mass/volume ] in Serum or PlasmaOrdered By: Paco Jimenez on 12-04-2024 Bilirubin [Mass/Vol] Bilirubin.total [Mass/volume] in Serum or Plasma 0.3-1.0 [facility] Bilirubin [Mass/Vol] 0.7 mg/dL Normal 0.3-1.0 [facility] Comment on above: Performed By: #### C BC, CMP wRFX A1C #### [address] Calcium [Mass/volume] in Ser um or PlasmaOrdered By: Paco Jimenez on 12-04-2024 Calcium [Mass/Vol] Calcium [Mass/volume ] in Serum or Plasma Low 8.6-10.3 [facility] Calcium [Mass/Vol] 7.8 mg/dL Low 8.6-10.3 [facility] Comment on above: Performed By: #### C BC, CMP wRFX A1C #### [address] Carbon dioxide, total [Moles /volume] in Serum or PlasmaOrdered By: Paco Jimenez on 12-04-2024 CO2 [Moles/Vol] Carbon dioxide, tota l [Moles/volume] in Serum or Plasma 21.0-31.0 [facility] CO2 [Moles/Vol] 21.8 mmol/L Normal 21.0-31.0 [facility] Comment on above: Performed By: #### C BC, CMP wRFX A1C #### [address] Chloride [Moles/volume] in S florencio or PlasmaOrdered By: Paco Jimenez on 12-04-2024 Chloride [Moles/Vol] Chloride [Moles/vol ume] in Serum or Plasma 98-107 [facility] Chloride [Moles/Vol] 100 mmol/L Normal 98-107 [facility] Comment on above: Performed By: #### C BC, CMP wRFX A1C #### [address] Complete Blood Count Auto Di ffon 12-04-2024 Mean Corpuscular HGB Conc 34.6 g/dL Normal 32.5-35.6 [facility] Comment on above: Performed By: #### C BC, CMP wRFX A1C #### [address] NRBC% 0.1 /100{WBC} Normal 0-0.5 [facility] Comment on above: Performed By: #### C BC, CMP wRFX A1C #### [address] Comprehensive Metabolic Pane donte 12-04-2024 Albumin [Mass/Vol] 3.2 g/dL Low 3.5-5.7 [facility] Comment on above: Performed By: #### C BC, CMP wRFX A1C #### [facility] [address] Creatinine Clr Calc Pharmacy 107.15 Normal [facility] Comment on above: Performed By: #### C BC, CMP wRFX A1C #### [place] [address] [place] GFR/1.73 sq M.predicted MDRD (S/P/Bld) [Vol rate/Area] mL/min/{1.73_m2} Normal [facility] Comment on above: Performed By: #### C BC, CMP wRFX A1C #### [address] Creatinine [Mass/volume] in Serum or PlasmaOrdered By: Paco Jimenez on 12-04-2024 Creatinine [Mass/Vol] Creatinine [Mass/v olume] in Serum or Plasma 0.70-1.30 [facility] Creatinine [Mass/Vol] 0.93 mg/dL Normal 0.70-1.30 [facility] Comment on above: Performed By: #### C BC, CMP wRFX A1C #### [address] Eosinophils Auto (Bld) [#/Vo l]Ordered By: Paco Jimenez on 12-04-2024 Eosinophils (Bld) [#/Vol] Automated eosinophil count 0.0-0.[address] [facility] Eosinophils [#/volume] in Bl ood by Automated countOrdered By: Paco Jimenez on 12-04-2024 Eosinophils (Bld) [#/Vol] 0.0 10*3/uL Normal 0.0-0.45 [facility] Comment on above: Performed By: #### C BC, CMP wRFX A1C #### [place] [address] [place] Eosinophils/100 WBC Auto (Bl d)Ordered By: Paco Jimenez on 12-04-2024 Eosinophils/100 WBC (Bld) Automated eosinophil % . [facility] Eosinophils/100 leukocytes i n Blood by Automated countOrdered By: Paco Jimenez on 12-04-2024 Eosinophils/100 WBC (Bld) 0.3 % Normal . [facility] [facility] Comment on above: Performed By: #### C BC, CMP wRFX A1C #### [facility] [address] [place] [address] Erythrocyte distribution wid th Auto (RBC) [Ratio]Ordered By: Paco Jimenez on 12-04-2024 Erythrocyte distribution width (RBC) [Ratio] Erythrocyte distribution width [Ratio] by Automated count 12.0-14.8 [facility] Erythrocyte distribution wid th [Ratio] by Automated countOrdered By: Paco Jimenez on 12-04-2024 Erythrocyte distribution width (RBC) [Ratio] 13.7 % Normal 12.0-14.8 [facility] Comment on above: Performed By: #### C BC, CMP wRFX A1C #### [facility] [address] [place] [address] Erythrocytes [#/volume] in B lood by Automated countOrdered By: Paco Jimenez on 12-04-2024 RBC (Bld) [#/Vol] 3.31 10*6/uL Low 3.90-5.[address] [facility] Comment on above: Performed By: #### C BC, CMP wRFX A1C #### [address] Globulin Calc (S) [Mass/Vol] Ordered By: Paco Jimenez on 12-04-2024 Globulin (S) [Mass/Vol] Serum globulin measurement by calculation (mass/volume) [facility] Glucose [Mass/volume] in Ser um or PlasmaOrdered By: Paco Jimenez on 12-04-2024 Glucose [Mass/Vol] Glucose [Mass/volume ] in Serum or Plasma 70-100 [facility] Comment on above: ADA recommended refe rence rangeRandom Glucose Reference Range is dependent on time and content of last meal. Glucose of more than 200 mg/dL in a nonstressed, ambulatory subject supports the diagnosis of Diabetes Mellitus. Glucose [Mass/Vol] 95 mg/dL Normal 70-100 [facility] Comment on above: ADA recommended refe rence rangeRandom Glucose Reference Range is dependent on time and content of last meal. Glucose of more than 200 mg/dL in a nonstressed, ambulatory subject supports the diagnosis of Diabetes Mellitus. Result Comment: [place] om Glucose Reference Range is dependent on time and content of last meal. Glucose of more than 200 mg/dL in a nonstressed, ambulatory subject supports the diagnosis of Diabetes Mellitus. ADA recommended reference range Performed By: #### C BC, CMP wRFX A1C #### [facility] [address] [place] [address] Hematocrit Auto (Bld) [Volum e fraction]Ordered By: Paco Jimenez on 12-04-2024 Hematocrit (Bld) [Volume fraction] Hematocrit [Volume Fraction] of Blood by Automated count Low 38.8-50.0 [facility] Hematocrit [Volume Fraction] of Blood by Automated countOrdered By: Paco Jimenez on 12-04-2024 Hematocrit (Bld) [Volume fraction] 32.8 % Low 38.8-50.0 [facility] Comment on above: Performed By: #### C BC, CMP wRFX A1C #### [address] Hemoglobin [Mass/volume] in BloodOrdered By: Paco Jimenez on 12-04-2024 Hemoglobin (Bld) [Mass/Vol] Hemoglobin [Mass/volume] in Blood Low 13.0-17.0 [facility] Hemoglobin (Bld) [Mass/Vol] 11.3 g/dL Low 13.0-17.0 [facility] Comment on above: Performed By: #### C BC, CMP wRFX A1C #### [facility] [address] [place] [address] [place] Leukocytes [#/volume] correc kwaku for nucleated erythrocytes in Blood by Automated counOrdered By: Paco Jimenez on 12-04-2024 WBC corrected for nucl RBC Auto (Bld) [#/Vol] Leukocytes [#/volume] corrected for nucleated erythrocytes in Blood by Automated coun 4.1-10.5 [facility] WBC corrected for nucl RBC Auto (Bld) [#/Vol] 9.1 10*3/uL 4.1-10.5 [facility] Leukocytes [#/volume] in Blo od by Automated countOrdered By: Paco Jimenez on 12-04-2024 WBC (Bld) [#/Vol] 9.1 10*3/uL Normal 4.1-10.5 [facility] Comment on above: Performed By: #### C BC, CMP wRFX A1C #### [facility] [address] Lymphocytes Auto (Bld) [#/Vo l]Ordered By: Paco Jimenez on 12-04-2024 Lymphocytes (Bld) [#/Vol] Lymphocytes [#/volume] in Blood by Automated count 1.00-4.8 [facility] Lymphocytes [#/volume] in Bl ood by Automated countOrdered By: Paco Jimenez on 12-04-2024 Lymphocytes (Bld) [#/Vol] 1.9 10*3/uL Normal 1.00-4.8 [facility] Comment on above: Performed By: #### C BC, CMP wRFX A1C #### [facility] [address] [place] [address] [place] Lymphocytes/100 WBC Auto (Bl d)Ordered By: Paco Jimenez on 12-04-2024 Lymphocytes/100 WBC (Bld) Lymphocytes/100 leukocytes in Blood by Automated count . [facility] Lymphocytes/100 leukocytes i n Blood by Automated countOrdered By: Paco Jimenez on 12-04-2024 Lymphocytes/100 WBC (Bld) 20.4 % Normal . [facility] Comment on above: Performed By: #### C BC, CMP wRFX A1C #### [facility] [address] [place] [address] MCH Auto (RBC) [Entitic mass ]Ordered By: Paco Jimenez on 12-04-2024 MCH (RBC) [Entitic mass] MCH [Entitic mass] by Automated count 27.5-35.2 [facility] MCH [Entitic mass] by Automa kwaku countOrdered By: Paco Jimenez on 12-04-2024 MCH (RBC) [Entitic mass] 34.3 pg Normal 27.5-35.2 [facility] Comment on above: Performed By: #### C BC, CMP wRFX A1C #### [address] MCHC Auto (RBC) [Mass/Vol]Or dered By: Paco Jimenez on 12-04-2024 MCHC (RBC) [Mass/Vol] MCHC [Mass/volume] by Automated count 32.5-35.6 [facility] MCHC (RBC) [Mass/Vol] 34.6 g/dL 32.5-35.6 [facility] MCV Auto (RBC) [Entitic vol] Ordered By: Paco Jimenez on 12-04-2024 MCV (RBC) [Entitic vol] MCV [Entitic volume] by Automated count 83.5-101 [facility] MCV [Entitic volume] by Auto mated countOrdered By: Paco Jimenez on 12-04-2024 MCV (RBC) [Entitic vol] 99.2 fL Normal 83.5-101 [facility] Comment on above: Performed By: #### C BC, CMP wRFX A1C #### [address] Monocytes Auto (Bld) [#/Vol] Ordered By: Paco Jimenez on 12-04-2024 Monocytes (Bld) [#/Vol] Automated blood monocyte count High 0.0-0.8 [facility] Monocytes [#/volume] in Bloo d by Automated countOrdered By: Paco Jimenez on 12-04-2024 Monocytes (Bld) [#/Vol] 1.1 10*3/uL High 0.0-0.8 [facility] Comment on above: Performed By: #### C BC, CMP wRFX A1C #### [address] Monocytes/100 WBC Auto (Bld) Ordered By: Paco Jimenez on 12-04-2024 Monocytes/100 WBC (Bld) Automated monocyte % . [facility] Monocytes/100 leukocytes in Blood by Automated countOrdered By: Paco Jimenez on 12-04-2024 Monocytes/100 WBC (Bld) 11.8 % Normal . [facility] Comment on above: Performed By: #### C BC, CMP wRFX A1C #### [facility] [address] Neutrophils Auto (Bld) [#/Vo l]Ordered By: Paco Jimenez on 12-04-2024 Neutrophils (Bld) [#/Vol] Neutrophils [#/volume] in Blood by Automated count 1.8-7.7 [facility] Neutrophils [#/volume] in Bl ood by Automated countOrdered By: Paco Jimenez on 12-04-2024 Neutrophils (Bld) [#/Vol] 6.1 10*3/uL Normal 1.8-7.7 [facility] Comment on above: Performed By: #### C BC, CMP wRFX A1C #### [facility] [address] [place] [address] Neutrophils/100 WBC Auto (Bl d)Ordered By: Paco Jimenez on 12-04-2024 Neutrophils/100 WBC (Bld) Automated neutrophil % . [facility] Neutrophils/100 leukocytes i n Blood by Automated countOrdered By: Paco Jimenez on 12-04-2024 Neutrophils/100 WBC (Bld) 67.2 % Normal . [facility] Comment on above: Performed By: #### C BC, CMP wRFX A1C #### [facility] [address] [place] [address] No Panel InformationOrdered By: Paco Jimenez on 12-04-2024 Estimated GFR (CKD-EPI) > 60.0 mL/Min [facility] Creatinine Clearance (Chem 107.15 [facility] Nucleated erythrocytes [Pres ence] in Blood by Automated countOrdered By: Paco Jimenez on 12-04-2024 Nucleated RBC Auto Ql (Bld) Nucleated erythrocytes [Presence] in Blood by Automated count 0-0.5 [facility] Nucleated RBC Auto Ql (Bld) 0.1 /100{WBC} 0-0.5 [facility] Platelet mean volume Auto (B ld) [Entitic vol]Ordered By: Paco Jimenez on 12-04-2024 Platelet mean volume (Bld) [Entitic vol] Platelet mean volume [Entitic volume] in Blood by Automated count 6.6-10.1 [facility] Platelet mean volume [Entiti c volume] in Blood by Automated countOrdered By: Paco Jimenez on 12-04-2024 Platelet mean volume (Bld) [Entitic vol] 7.7 fL Normal 6.6-10.1 [facility] Comment on above: Performed By: #### C BC, CMP wRFX A1C #### [address] Platelets Auto (Bld) [#/Vol] Ordered By: Paco Jimenez on 12-04-2024 Platelets (Bld) [#/Vol] Platelets [#/volume] in Blood by Automated count 150-450 [facility] Platelets [#/volume] in Bloo d by Automated countOrdered By: Paco Jimenez on 12-04-2024 Platelets (Bld) [#/Vol] 179 10*3/uL Normal 150-450 [facility] Comment on above: Performed By: #### C BC, CMP wRFX A1C #### [address] Potassium [Moles/volume] in Serum or PlasmaOrdered By: Paco Jimenez on 12-04-2024 Potassium [Moles/Vol] Potassium [Moles/v olume] in Serum or Plasma 3.5-5.1 [facility] Potassium [Moles/Vol] 3.8 mmol/L Normal 3.5-5.1 [facility] Comment on above: Performed By: #### C BC, CMP wRFX A1C #### [address] Prealbumin [Mass/volume] in Serum or PlasmaOrdered By: Paco Jimenez on 12-04-2024 Prealbumin [Mass/Vol] Prealbumin [Mass/v olume] in Serum or Plasma Low 17.0-34.0 [facility] Prealbumin [Mass/Vol] 13.4 mg/dL Low 17.0-34.0 [facility] Comment on above: Result Comment: PERF ORMED BY: [place] [address] PATHOLOGIST DIRECTOR MARKETING MARY DE DIOS M.D. Performed By: #### C BC, CMP wRFX A1C #### [facility] [address] [place] [address] Protein [Mass/volume] in Ser um or PlasmaOrdered By: Paco Jimenez on 12-04-2024 Protein [Mass/Vol] Protein [Mass/volume ] in Serum or Plasma Low 6.4-8.9 [facility] Protein [Mass/Vol] 5.1 g/dL Low 6.4-8.9 [facility] Comment on above: Performed By: #### C BC, CMP wRFX A1C #### [facility] [address] [place] [address] RBC Auto (Bld) [#/Vol]Ordere d By: Paco Jimenez on 12-04-2024 RBC (Bld) [#/Vol] Erythrocytes [#/volu me] in Blood by Automated count Low 3.90-5.60 [facility] Serum globulin measurement b y calculation (mass/volume)Ordered By: Paco Jimenez on 12-04-2024 Globulin (S) [Mass/Vol] 1.9 g/dL Normal [facility] Comment on above: Performed By: #### C BC, CMP wRFX A1C #### [address] Serum or plasma albumin/glob ulin mass ratioOrdered By: Paco Jimenez on 12-04-2024 Albumin/Globulin [Mass ratio] Serum or plasma albumin/globulin mass ratio [facility] Albumin/Globulin [Mass ratio] 1.7 {ratio} Normal [facility] Comment on above: Performed By: #### C BC, CMP wRFX A1C #### [facility] [address] Serum or plasma anion gap de terminationOrdered By: Paco Jimenez on 12-04-2024 Anion gap [Moles/Vol] Serum or plasma an ion gap determination 6.0-15.0 [facility] Anion gap [Moles/Vol] 13.0 mmol/L Normal 6.0-15.0 [facility] Comment on above: Performed By: #### C BC, CMP wRFX A1C #### [facility] [address] [place] [address] Sodium [Moles/volume] in Ser um or PlasmaOrdered By: Paco Jimenez on 12-04-2024 Sodium [Moles/Vol] Sodium [Moles/volume ] in Serum or Plasma Low 136-145 [facility] Sodium [Moles/Vol] 131 mmol/L Low 136-145 [facility] Comment on above: Performed By: #### C BC, CMP wRFX A1C #### [facility] [address] [place] [address] Urea nitrogen [Mass/volume] in Serum or PlasmaOrdered By: Paco Jimenez on 12-04-2024 Urea nitrogen [Mass/Vol] Urea nitrogen [Mass/volume] in Serum or Plasma 02-06 [facility] Urea nitrogen [Mass/Vol] 13 mg/dL Normal 02-06 [facility] Comment on above: Performed By: #### C BC, CMP wRFX A1C #### [facility] [address] [place] [address] [place] WBC Auto (Bld) [#/Vol]Ordere d By: Paco Jimenez on 12-04-2024 WBC (Bld) [#/Vol] Leukocytes [#/volume ] in Blood by Automated count 4.1-10.5 [facility] Basic Metabolic Panelon 11-14 Creatinine Clr Calc Pharmacy 120.38 Normal [facility] Comment on above: Result Comment: PERF ORMED BY: [place] [address] PATHOLOGIST DIRECTOR MARKETING MARY DE DIOS M.D. Performed By: #### C BC, CMP wRFX A1C #### [facility] [address] [place] [address] [place] GFR/1.73 sq M.predicted MDRD (S/P/Bld) [Vol rate/Area] mL/min/{1.73_m2} Normal [facility] Comment on above: Performed By: #### C BC, CMP wRFX A1C #### [place] [address] [place] Basophils Auto (Bld) [#/Vol] Ordered By: Nishant Ceja on 12-03-2024 Basophils (Bld) [#/Vol] Automated basophil count 0.0-0.2 [facility] Basophils [#/volume] in Bloo d by Automated countOrdered By: Nishant Ceja on 12-03-2024 Basophils (Bld) [#/Vol] 0.1 10*3/uL Normal 0.0-0.2 [facility] Comment on above: Result Comment: PERF ORMED BY: [place] [address] PATHOLOGIST DIRECTOR MARKETING MARY DE DIOS M.D. Performed By: #### C BC, CMP wRFX A1C #### [place] [address] [place] Basophils/100 WBC Auto (Bld) Ordered By: Nishant Ceja on 12-03-2024 Basophils/100 WBC (Bld) Automated basophil % . [facility] Basophils/100 leukocytes in Blood by Automated countOrdered By: Nishant Ceja on 12-03-2024 Basophils/100 WBC (Bld) 0.7 % Normal . [facility] Comment on above: Performed By: #### C BC, CMP wRFX A1C #### [place] [address] [place] Calcium [Mass/volume] in Ser um or PlasmaOrdered By: Nishant Ceja on 12-03-2024 Calcium [Mass/Vol] Calcium [Mass/volume ] in Serum or Plasma Low 8.6-10.3 [facility] Calcium [Mass/Vol] 8.4 mg/dL Low 8.6-10.3 [facility] Comment on above: Performed By: #### C BC, CMP wRFX A1C #### [address] Carbon dioxide, total [Moles /volume] in Serum or PlasmaOrdered By: Nishant Ceja on 12-03-2024 CO2 [Moles/Vol] Carbon dioxide, tota l [Moles/volume] in Serum or Plasma Low 21.0-31.0 [facility] CO2 [Moles/Vol] 20.5 mmol/L Low 21.0-31.0 [facility] Comment on above: Performed By: #### C BC, CMP wRFX A1C #### [address] Chloride [Moles/volume] in S florencio or PlasmaOrdered By: Nishant Ceja on 12-03-2024 Chloride [Moles/Vol] Chloride [Moles/vol ume] in Serum or Plasma 98-107 [facility] Chloride [Moles/Vol] 99 mmol/L Normal 98-107 [facility] Comment on above: Performed By: #### C BC, CMP wRFX A1C #### [address] Complete Blood Count Auto Di ffon 12-03-2024 Mean Corpuscular HGB Conc 34.0 g/dL Normal 32.5-35.6 [facility] Comment on above: Performed By: #### C BC, CMP wRFX A1C #### [place] [address] [place] NRBC% 0.1 /100{WBC} Normal 0-0.5 [facility] Comment on above: Performed By: #### C BC, CMP wRFX A1C #### [place] [address] [place] Creatinine [Mass/volume] in Serum or PlasmaOrdered By: Nishant Ceja on 12-03-2024 Creatinine [Mass/Vol] Creatinine [Mass/v olume] in Serum or Plasma 0.70-1.30 [facility] Creatinine [Mass/Vol] 0.82 mg/dL Normal 0.70-1.30 [facility] Comment on above: Performed By: #### C BC, CMP wRFX A1C #### [facility] [address] Eosinophils Auto (Bld) [#/Vo l]Ordered By: Nishant Ceja on 12-03-2024 Eosinophils (Bld) [#/Vol] Automated eosinophil count 0.0-0.[address] [facility] Eosinophils [#/volume] in Bl ood by Automated countOrdered By: Nishant Ceja on 12-03-2024 Eosinophils (Bld) [#/Vol] 0.0 10*3/uL Normal 0.0-0.45 [facility] Comment on above: Performed By: #### C BC, CMP wRFX A1C #### [facility] [address] Eosinophils/100 WBC Auto (Bl d)Ordered By: Nihsant Ceja on 12-03-2024 Eosinophils/100 WBC (Bld) Automated eosinophil % . [facility] Eosinophils/100 leukocytes i n Blood by Automated countOrdered By: Nishant Ceja on 12-03-2024 Eosinophils/100 WBC (Bld) 0.0 % Normal . [facility] Comment on above: Performed By: #### C BC, CMP wRFX A1C #### [facility] [address] [place] [address] [place] Erythrocyte distribution wid th Auto (RBC) [Ratio]Ordered By: Nishant Ceja on 12-03-2024 Erythrocyte distribution width (RBC) [Ratio] Erythrocyte distribution width [Ratio] by Automated count 12.0-14.8 [facility] Erythrocyte distribution wid th [Ratio] by Automated countOrdered By: Nishant Ceja on 12-03-2024 Erythrocyte distribution width (RBC) [Ratio] 14.1 % Normal 12.0-14.8 [facility] Comment on above: Performed By: #### C BC, CMP wRFX A1C #### [facility] [address] Erythrocytes [#/volume] in B lood by Automated countOrdered By: Nishant Ceja on 12-03-2024 RBC (Bld) [#/Vol] 3.72 10*6/uL Low 3.90-5.[address] [facility] Comment on above: Performed By: #### C BC, CMP wRFX A1C #### [facility] [address] Glucose [Mass/volume] in Ser um or PlasmaOrdered By: Nishant Ceja on 12-03-2024 Glucose [Mass/Vol] Glucose [Mass/volume ] in Serum or Plasma High 70-100 [facility] Comment on above: ADA recommended refe rence rangeRandom Glucose Reference Range is dependent on time and content of last meal. Glucose of more than 200 mg/dL in a nonstressed, ambulatory subject supports the diagnosis of Diabetes Mellitus. Glucose [Mass/Vol] 102 mg/dL High 70-100 [facility] Comment on above: ADA recommended refe rence rangeRandom Glucose Reference Range is dependent on time and content of last meal. Glucose of more than 200 mg/dL in a nonstressed, ambulatory subject supports the diagnosis of Diabetes Mellitus. Result Comment: [place] om Glucose Reference Range is dependent on time and content of last meal. Glucose of more than 200 mg/dL in a nonstressed, ambulatory subject supports the diagnosis of Diabetes Mellitus. ADA recommended reference range Performed By: #### C BC, CMP wRFX A1C #### [facility] [address] [place] [id number] [facility] Hematocrit Auto (Bld) [Volum e fraction]Ordered By: Nishant Ceja on 12-03-2024 Hematocrit (Bld) [Volume fraction] Hematocrit [Volume Fraction] of Blood by Automated count Low 38.8-50.0 [facility] Hematocrit [Volume Fraction] of Blood by Automated countOrdered By: Nishant Ceja on 12-03-2024 Hematocrit (Bld) [Volume fraction] 36.7 % Low 38.8-50.0 [facility] Comment on above: Performed By: #### C BC, CMP wRFX A1C #### [facility] [address] Hemoglobin [Mass/volume] in BloodOrdered By: Nishant Ceja on 12-03-2024 Hemoglobin (Bld) [Mass/Vol] Hemoglobin [Mass/volume] in Blood Low 13.0-17.0 [facility] Hemoglobin (Bld) [Mass/Vol] 12.5 g/dL Low 13.0-17.0 [facility] Comment on above: Performed By: #### C BC, CMP wRFX A1C #### [facility] [address] Leukocytes [#/volume] correc kwaku for nucleated erythrocytes in Blood by Automated counOrdered By: Nishant Ceja on 12-03-2024 WBC corrected for nucl RBC Auto (Bld) [#/Vol] Leukocytes [#/volume] corrected for nucleated erythrocytes in Blood by Automated coun High 4.1-10.5 [facility] WBC corrected for nucl RBC Auto (Bld) [#/Vol] 12.4 10*3/uL High 4.1-10.5 [facility] Leukocytes [#/volume] in Blo od by Automated countOrdered By: Nishant Ceja on 12-03-2024 WBC (Bld) [#/Vol] 12.4 10*3/uL High 4.1-10.[address] [facility] Comment on above: Performed By: #### C BC, CMP wRFX A1C #### [facility] [address] Lymphocytes Auto (Bld) [#/Vo l]Ordered By: Nishant Ceja on 12-03-2024 Lymphocytes (Bld) [#/Vol] Lymphocytes [#/volume] in Blood by Automated count 1.00-4.8 [facility] Lymphocytes [#/volume] in Bl ood by Automated countOrdered By: Nishant Ceja on 12-03-2024 Lymphocytes (Bld) [#/Vol] 1.8 10*3/uL Normal 1.00-4.8 [facility] Comment on above: Performed By: #### C BC, CMP wRFX A1C #### [facility] [address] Lymphocytes/100 WBC Auto (Bl d)Ordered By: Nishant Ceja on 12-03-2024 Lymphocytes/100 WBC (Bld) Lymphocytes/100 leukocytes in Blood by Automated count . [facility] Lymphocytes/100 leukocytes i n Blood by Automated countOrdered By: Nishant Ceja on 12-03-2024 Lymphocytes/100 WBC (Bld) 14.2 % Normal . [facility] Comment on above: Performed By: #### C BC, CMP wRFX A1C #### [facility] [address] [place] [address] MCH Auto (RBC) [Entitic mass ]Ordered By: Nishant Ceja on 12-03-2024 MCH (RBC) [Entitic mass] MCH [Entitic mass] by Automated count 27.5-35.2 [facility] MCH [Entitic mass] by Automa kwaku countOrdered By: Nishant Ceja on 12-03-2024 MCH (RBC) [Entitic mass] 33.5 pg Normal 27.5-35.2 [facility] Comment on above: Performed By: #### C BC, CMP wRFX A1C #### [facility] [address] [place] [address] MCHC Auto (RBC) [Mass/Vol]Or dered By: Nishant Ceja on 12-03-2024 MCHC (RBC) [Mass/Vol] MCHC [Mass/volume] by Automated count 32.5-35.6 [facility] MCHC (RBC) [Mass/Vol] 34.0 g/dL 32.5-35.6 [facility] MCV Auto (RBC) [Entitic vol] Ordered By: Nishant Ceja on 12-03-2024 MCV (RBC) [Entitic vol] MCV [Entitic volume] by Automated count 83.5-101 [facility] MCV [Entitic volume] by Auto mated countOrdered By: Nishant Ceja on 12-03-2024 MCV (RBC) [Entitic vol] 98.5 fL Normal 83.5-101 [facility] Comment on above: Performed By: #### C BC, CMP wRFX A1C #### [facility] [address] [place] [address] [place] Monocytes Auto (Bld) [#/Vol] Ordered By: Nishant Ceja on 12-03-2024 Monocytes (Bld) [#/Vol] Automated blood monocyte count High 0.0-0.8 [facility] Monocytes [#/volume] in Bloo d by Automated countOrdered By: Nishant Ceja on 12-03-2024 Monocytes (Bld) [#/Vol] 1.2 10*3/uL High 0.0-0.8 [facility] Comment on above: Performed By: #### C BC, CMP wRFX A1C #### [place] [address] [place] Monocytes/100 WBC Auto (Bld) Ordered By: Nishant Ceja on 12-03-2024 Monocytes/100 WBC (Bld) Automated monocyte % . [facility] Monocytes/100 leukocytes in Blood by Automated countOrdered By: Nishant Ceja on 12-03-2024 Monocytes/100 WBC (Bld) 9.5 % Normal . [facility] Comment on above: Performed By: #### C BC, CMP wRFX A1C #### [place] [address] [place] Neutrophils Auto (Bld) [#/Vo l]Ordered By: Nishant Ceja on 12-03-2024 Neutrophils (Bld) [#/Vol] Neutrophils [#/volume] in Blood by Automated count High 1.8-7.7 [facility] Neutrophils [#/volume] in Bl ood by Automated countOrdered By: Nishant Ceja on 12-03-2024 Neutrophils (Bld) [#/Vol] 9.4 10*3/uL High 1.8-7.7 [facility] Comment on above: Performed By: #### C BC, CMP wRFX A1C #### [facility] [address] [place] [address] [place] Neutrophils/100 WBC Auto (Bl d)Ordered By: Nishant Ceja on 12-03-2024 Neutrophils/100 WBC (Bld) Automated neutrophil % . [facility] Neutrophils/100 leukocytes i n Blood by Automated countOrdered By: Nishant Ceja on 12-03-2024 Neutrophils/100 WBC (Bld) 75.6 % Normal . [facility] Comment on above: Performed By: #### C BC, CMP wRFX A1C #### [facility] [address] No Panel InformationOrdered By: Nishant Ceja on 12-03-2024 Estimated GFR (CKD-EPI) > 60.0 mL/Min [facility] Creatinine Clearance (Chem 120.38 [facility] Nucleated erythrocytes [Pres ence] in Blood by Automated countOrdered By: Nishant Ceja on 12-03-2024 Nucleated RBC Auto Ql (Bld) Nucleated erythrocytes [Presence] in Blood by Automated count 0-0.5 [facility] Nucleated RBC Auto Ql (Bld) 0.1 /100{WBC} 0-0.5 [facility] Platelet mean volume Auto (B ld) [Entitic vol]Ordered By: Nishant Ceja on 12-03-2024 Platelet mean volume (Bld) [Entitic vol] Platelet mean volume [Entitic volume] in Blood by Automated count 6.6-10.1 [facility] Platelet mean volume [Entiti c volume] in Blood by Automated countOrdered By: Nishant Ceja on 12-03-2024 Platelet mean volume (Bld) [Entitic vol] 8.6 fL Normal 6.6-10.1 [facility] Comment on above: Performed By: #### C BC, CMP wRFX A1C #### [facility] [address] [place] [address] [place] Platelets Auto (Bld) [#/Vol] Ordered By: Nishant Ceja on 12-03-2024 Platelets (Bld) [#/Vol] Platelets [#/volume] in Blood by Automated count 150-450 [facility] Platelets [#/volume] in Bloo d by Automated countOrdered By: Nishant Ceja on 12-03-2024 Platelets (Bld) [#/Vol] 209 10*3/uL Normal 150-450 [facility] Comment on above: Performed By: #### C BC, CMP wRFX A1C #### [facility] [address] [place] [address] [place] Potassium [Moles/volume] in Serum or PlasmaOrdered By: Nishant Ceja on 12-03-2024 Potassium [Moles/Vol] Potassium [Moles/v olume] in Serum or Plasma 3.5-5.1 [facility] Potassium [Moles/Vol] 4.1 mmol/L Normal 3.5-5.1 [facility] Comment on above: Performed By: #### C BC, CMP wRFX A1C #### [facility] [address] RBC Auto (Bld) [#/Vol]Ordere d By: Nishant Ceja on 12-03-2024 RBC (Bld) [#/Vol] Erythrocytes [#/volu me] in Blood by Automated count Low 3.90-5.60 [facility] Serum or plasma anion gap de terminationOrdered By: Nishant Ceja on 12-03-2024 Anion gap [Moles/Vol] Serum or plasma an ion gap determination 6.0-15.0 [facility] Anion gap [Moles/Vol] 13.6 mmol/L Normal 6.0-15.0 [facility] Comment on above: Performed By: #### C BC, CMP wRFX A1C #### [facility] [address] [place] [address] [place] Sodium [Moles/volume] in Ser um or PlasmaOrdered By: Nishant Ceja on 12-03-2024 Sodium [Moles/Vol] Sodium [Moles/volume ] in Serum or Plasma Low 136-145 [facility] Sodium [Moles/Vol] 129 mmol/L Low 136-145 [facility] Comment on above: Performed By: #### C BC, CMP wRFX A1C #### [facility] [address] [place] [address] [place] Urea nitrogen [Mass/volume] in Serum or PlasmaOrdered By: Nishant Ceja on 12-03-2024 Urea nitrogen [Mass/Vol] Urea nitrogen [Mass/volume] in Serum or Plasma 02-06 [facility] Urea nitrogen [Mass/Vol] 12 mg/dL Normal 02-06 [facility] Comment on above: Performed By: #### C BC, CMP wRFX A1C #### [facility] [address] WBC Auto (Bld) [#/Vol]Ordere d By: Nishant Ceja on 12-03-2024 WBC (Bld) [#/Vol] Leukocytes [#/volume ] in Blood by Automated count High 4.1-10.5 [facility] ABO/Rh Retypeon 12-02-2024 ABO/RH Recheck Result Positive Normal [facility] Comment on above: Result Comment: PERF ORMED BY: [place] [address] PATHOLOGIST DIRECTOR MARKETING MARY DE DIOS M.D. Basic Metabolic Panelon 11-14 Anion gap [Moles/Vol] 12.5 mmol/L Normal 6.0-15.0 [facility] Comment on above: Performed By: #### B MP, PT, MG, PTT, CBC #### [address] Calcium [Mass/Vol] 8.6 mg/dL Normal 8.6-10.3 [facility] Comment on above: Performed By: #### B MP, PT, MG, PTT, CBC #### [place] [address] [place] Chloride [Moles/Vol] 99 mmol/L Normal 98-107 [facility] Comment on above: Performed By: #### B MP, PT, MG, PTT, CBC #### [place] [address] [place] CO2 [Moles/Vol] 21.5 mmol/L Normal 21.0-31.0 [facility] Comment on above: Performed By: #### B MP, PT, MG, PTT, CBC #### [place] [address] [place] Creatinine [Mass/Vol] 0.78 mg/dL Normal 0.70-1.30 [facility] Comment on above: Performed By: #### B MP, PT, MG, PTT, CBC #### [address] Creatinine Clr Calc Pharmacy 126.55 Normal [facility] Comment on above: Performed By: #### B MP, PT, MG, PTT, CBC #### [address] GFR/1.73 sq M.predicted MDRD (S/P/Bld) [Vol rate/Area] mL/min/{1.73_m2} Normal [facility] Comment on above: Performed By: #### B MP, PT, MG, PTT, CBC #### [address] Glucose [Mass/Vol] 89 mg/dL Normal 70-100 [facility] Comment on above: Result Comment: [place] Glucose Reference Range is dependent on time and content of last meal. Glucose of more than 200 mg/dL in a nonstressed, ambulatory subject supports the diagnosis of Diabetes Mellitus. ADA recommended reference range Performed By: #### B MP, PT, MG, PTT, CBC #### [address] Potassium [Moles/Vol] 4.0 mmol/L Normal 3.5-5.1 [facility] Comment on above: Performed By: #### B MP, PT, MG, PTT, CBC #### [address] Sodium [Moles/Vol] 129 mmol/L Low 136-145 [facility] Comment on above: Performed By: #### B MP, PT, MG, PTT, CBC #### [address] Urea nitrogen [Mass/Vol] 14 mg/dL Normal 7-25 [facility] Comment on above: Performed By: #### B MP, PT, MG, PTT, CBC #### [address] Complete Blood Count Auto Di ffon 12-02-2024 Basophils (Bld) [#/Vol] 0.1 10*3/uL Normal 0.0-0.2 [facility] Comment on above: Result Comment: PERF ORMED BY: [place] [address] PATHOLOGIST DIRECTOR MARKETING MARY DE DIOS M.D. Performed By: #### B MP, PT, MG, PTT, CBC #### [address] Basophils/100 WBC (Bld) 0.6 % Normal . [facility] Comment on above: Performed By: #### B MP, PT, MG, PTT, CBC #### [address] Eosinophils (Bld) [#/Vol] 0.0 10*3/uL Normal 0.0-0.45 [facility] Comment on above: Performed By: #### B MP, PT, MG, PTT, CBC #### [address] Eosinophils/100 WBC (Bld) 0.5 % Normal . [facility] Comment on above: Performed By: #### B MP, PT, MG, PTT, CBC #### [address] Erythrocyte distribution width (RBC) [Ratio] 13.8 % Normal 12.0-14.8 [facility] Comment on above: Performed By: #### B MP, PT, MG, PTT, CBC #### [address] Hematocrit (Bld) [Volume fraction] 39.2 % Normal 38.8-50.0 [facility] Comment on above: Performed By: #### B MP, PT, MG, PTT, CBC #### [address] Hemoglobin (Bld) [Mass/Vol] 13.6 g/dL Normal 13.0-17.0 [facility] Comment on above: Performed By: #### B MP, PT, MG, PTT, CBC #### [address] Lymphocytes (Bld) [#/Vol] 2.2 10*3/uL Normal 1.00-4.8 [facility] Comment on above: Performed By: #### B MP, PT, MG, PTT, CBC #### [address] Lymphocytes/100 WBC (Bld) 24.7 % Normal . [facility] Comment on above: Performed By: #### B MP, PT, MG, PTT, CBC #### [address] MCH (RBC) [Entitic mass] 34.4 pg Normal 27.5-35.2 [facility] Comment on above: Performed By: #### B MP, PT, MG, PTT, CBC #### [address] MCV (RBC) [Entitic vol] 99.1 fL Normal 83.5-101 [facility] Comment on above: Performed By: #### B MP, PT, MG, PTT, CBC #### [address] Mean Corpuscular HGB Conc 34.7 g/dL Normal 32.5-35.6 [facility] Comment on above: Performed By: #### B MP, PT, MG, PTT, CBC #### [address] Monocytes (Bld) [#/Vol] 0.8 10*3/uL Normal 0.0-0.8 [facility] Comment on above: Performed By: #### B MP, PT, MG, PTT, CBC #### [address] Monocytes/100 WBC (Bld) 9.0 % Normal . [facility] Comment on above: Performed By: #### B MP, PT, MG, PTT, CBC #### [place] [address] [place] Neutrophils (Bld) [#/Vol] 5.9 10*3/uL Normal 1.8-7.7 [facility] Comment on above: Performed By: #### B MP, PT, MG, PTT, CBC #### [address] Neutrophils/100 WBC (Bld) 65.2 % Normal . [facility] Comment on above: Performed By: #### B MP, PT, MG, PTT, CBC #### [address] NRBC% 0.0 /100{WBC} Normal 0-0.5 [facility] Comment on above: Performed By: #### B MP, PT, MG, PTT, CBC #### [address] Platelet mean volume (Bld) [Entitic vol] 7.8 fL Normal 6.6-10.1 [facility] Comment on above: Performed By: #### B MP, PT, MG, PTT, CBC #### [address] Platelets (Bld) [#/Vol] 196 10*3/uL Normal 150-450 [facility] Comment on above: Performed By: #### B MP, PT, MG, PTT, CBC #### [address] RBC (Bld) [#/Vol] 3.96 10*6/uL Normal 3.90-5.60 [facility] Comment on above: Performed By: #### B MP, PT, MG, PTT, CBC #### [address] WBC (Bld) [#/Vol] 9.0 10*3/uL Normal 4.1-10.5 [facility] Comment on above: Performed By: #### B MP, PT, MG, PTT, CBC #### [address] ECG 12 lead ECGon 12-02-2024 ECG 12 lead ECG [facility] [place] [address] [place] [address] Electrocardiograph Report Signed Patient: Rehan Trejo MR#: [id number] : 1965 Acct:[id number] Age/Sex: 59 / M ADM Date: 12/01/24 Loc: Room: [address] [place] [address] Type: ADM IN Attending Dr: Luis Alberto Hearn MD Ordering Provider: Filipe Castillo MD Date of Service: 12/02/24 ECG/ECG 12 lead ECG: preop Copies to: Test Reason : Blood Pressure : */* mmHG Vent. Rate : 71 BPM Atrial Rate : 71 BPM P-R Int : 132 ms QRS Dur : 88 ms QT Int : 408 ms P-R-T Axes : 76 31 39 degrees QTcB Int : 443 ms Normal sinus rhythm Low voltage QRS T wave abnormality, consider anterior ischemia Abnormal ECG No previous ECGs available Confirmed by DEEP AMADO MD ([id number]) on 12/02/2024 9:57:23 AM Referred By: Electronically Signed By: DEEP AMADO MD Transcribed By: MUS Signed By Deep Amado MD 0 12/02/24 0957 Normal [facility] INR in Platelet poor plasma by Coagulation assayOrdered By: Diana Forde on 12-02-2024 INR Coag (PPP) [Relative time] INR in Platelet poor plasma by Coagulation assay [facility] Comment on above: INR Therapeutic Rang e A) Pre- and Peroperative OAT started two weeks before surgery. NOT HIP SURGERY: 1.5 - 2.5 HIP SURGERY: 2 - 3B) Primary and secondary prevention of venous THROMBOSIS: 2 - 3C) Active venous thrombosis, pulmonary embolismand prevention of recurrent venous thrombosis: 2 - 3D) Prevention of arterial thromboembolismincluding patients with mechanical heart valves: 3 - 4.5 INR Coag (PPP) [Relative time] 0.9 {INR} Normal [facility] Comment on above: INR Therapeutic Rang e A) Pre- and Peroperative OAT started two weeks before surgery. NOT HIP SURGERY: 1.5 - 2.5 HIP SURGERY: 2 - 3B) Primary and secondary prevention of venous THROMBOSIS: 2 - 3C) Active venous thrombosis, pulmonary embolismand prevention of recurrent venous thrombosis: 2 - 3D) Prevention of arterial thromboembolismincluding patients with mechanical heart valves: 3 - 4.5 Result Comment: INR Therapeutic Range A) Pre- and Peroperative OAT started two weeks before surgery. NOT HIP SURGERY: 1.5 - 2.5 HIP SURGERY: 2 - 3 B) Primary and secondary prevention of venous THROMBOSIS: 2 - 3 C) Active venous thrombosis, pulmonary embolism and prevention of recurrent venous thrombosis: 2 - 3 D) Prevention of arterial thromboembolism including patients with mechanical heart valves: 3 - 4.5 Performed By: #### B MP, PT, MG, PTT, CBC #### [address] 12-02-2024 L ------ Specimen: [id number] Received: 12/03/24 Status: SUSAN Garnica Num: [id number] Spec Type: Surgical Subm Dr: Nishant Ceja DO Tissues: A Femoral Head - Fracture (R HIP) Procedures: HE/2, Gross/Micro L4, Decalcification Age/ Patient Sex Location Account Attending Physician Rehan Trejo 59/M 4N [id number] Luis Alberto Hearn MD SPEC NUM: [id number] RECD: 12/03/24 STATUS: SUSAN GARNICA NUM: [id number] BEA: 12/02/[address]: Nishant Ceja DO ENTERED: 12/03/[address]: JUSTIN TYPE: Surgical DEPT: S ENTERED BY: [id number] RECV BY: [id number] ORDERED: HE/2, Gross/Micro L4, Decalcification ORDERED: HE/2, Gross/Micro L4, Decalcification Pathological Diagnosis Right hip bone, right total hip arthroplasty: - Right femoral head with degenerative changes consistent with osteoarthritis. Clinical Information Right hip fracture Gross Description Received in formalin labeled with the patients name, date of , and Right hip bone and tissue is a femoral head, 5 x 5.8 x 3.9 cm with detached bone fragments admixed with a small amount of fibrofatty tissue, 10 x 8 x 2.5 cm in aggregate. The articular surface is remarkable for focal regions of granular degeneration. The point of attachment for the femoral neck is rough and irregular, 4.5 x 4.5 cm. The subarticular capsular surface ranges from 0.1 to 0.3 cm in thickness. The medullary bone is dusky throughout. The fibrofatty tissue is sectioned to reveal newberry-pink to yellow-bond, glistening, and uniform cut surfaces. Acls Nurse sections are submitted in A1?A2 after decalcification in rapid Abdoul immuno. (2, , [id number] A)Roberta Microscopic Description Microscopic examination is performed. Specimen: [id number] Received: 12/03/24 Status: SUSAN Garnica Num: [id number] Spec Type: Surgical Subm Dr: Nishant Ceja DO Tissues: A Femoral Head - Fracture (R HIP) Procedures: HE/2, Gross/Micro L4, Decalcification Patient: Rehan Trejo [id number] (Continued) Specimen: [id number] Received: 12/03/24 (Continued) Signed (signature on file) Darby Correia MD 12/10/24925 (signature on file) Serena Correia MD 12/10/24926 Specimen: [id number] Received: 12/03/24 Status: SUSAN Garnica Num: [id number] Spec Type: Surgical Subm Dr: Nishant Ceja DO Tissues: A Femoral Head - Fracture (R HIP) Procedures: HE/2, Gross/Micro L4, Decalcification Patient: Rehan Trejo [id number] (Continued) Specimen: [id number] Received: 12/03/24 (Continued) CPT Codes 61698, 39929 Specimen: [id number] Received: 12/03/24 Status: SUSAN Garnica Num: [id number] Spec Type: Surgical Subm Dr: Nishant Ceja, Tissues: A Femoral Head - Fracture (R HIP) Procedures: HE/2, Gross/Micro L4, Decalcification Patient: Rehan Trejo [id number] (Continued) Signed (signature on file) Rahul Correia MD 12/10/24925 (signature on file) Rahul Correia MD 12/10/24926 Normal [facility] Magnesium [Mass/volume] in S florencio or PlasmaOrdered By: Diana Forde on 12-02-2024 Magnesium [Mass/Vol] Magnesium [Mass/vol ume] in Serum or Plasma 1.9-2.7 [facility] Magnesium [Mass/Vol] 2.2 mg/dL Normal 1.9-2.7 [facility] Comment on above: Result Comment: PERF ORMED BY: [facility] [address] [facility] [place] [address] PATHOLOGIST DIRECTOR MARKETING MARY DE DIOS M.D. Performed By: #### B MP, PT, MG, PTT, CBC #### [facility] [address] [place], [place] [id number] [facility] Partial Thromboplastin Timeo n 12-02-2024 aPTT Coag (Bld) [Time] 27.2 s Normal 25.1-36.5 [facility] Comment on above: Result Comment: A he matocrit value greater than 55% may lead to inaccurate results in coagulation testing. Patients having hematocrit values >55% require a special collection tube for coagulation studies. Please contact the laboratory at [phone] for redraw instructions. PERFORMED BY: [place] [address] PATHOLOGIST DIRECTOR MARKETING MARY DE DIOS M.D. Performed By: #### B MP, PT, MG, PTT, CBC #### [place] [id number] [facility] Prothrombin time (PT)Ordered By: Diana Forde on 12-02-2024 PT Coag (PPP) [Time] Prothrombin time (PT) 9.0- 12.9 [facility] Comment on above: A hematocrit value g reater than 55% may lead to inaccurate results in coagulation testing. Patients having hematocrit values >55% require a special collection tube for coagulation studies. Please contact the laboratory at [phone] for redraw instructions. PT Coag (PPP) [Time] 10.6 s Normal 9.0-12.9 [facility] Comment on above: A hematocrit value g reater than 55% may lead to inaccurate results in coagulation testing. Patients having hematocrit values >55% require a special collection tube for coagulation studies. Please contact the laboratory at [phone] for redraw instructions. Result Comment: A he matocrit value greater than 55% may lead to inaccurate results in coagulation testing. Patients having hematocrit values >55% require a special collection tube for coagulation studies. Please contact the laboratory at [phone] for redraw instructions. Performed By: #### B MP, PT, MG, PTT, CBC #### [place] [id number] [facility] Type and Screenon 12-02-2024 ABO and Rh group Nom (Bld) Blood group B Rh(D) positive Normal [facility] Comment on above: Result Comment: PERF ORMED BY: [place] [id number] PATHOLOGIST DIRECTOR MARKETING MARY DE DIOS M.D. XR hip RT min 2V(w/wo pelvis )*on 12-02-2024 XR hip RT min 2V(w/wo pelvis)* [facility] Main [address] [address] XRay Report Signed Patient: Rehan Trejo MR#: [id number] : 1965 Acct:[id number] Age/Sex: 59 / M ADM Date: 12/01/24 Loc: Room: [address] [place] [address] Type: ADM IN Attending Dr: Luis Alberto Hearn MD Copies to: MD Nishant Whittaker DO Ordering Provider: Nishant Ceja DO Date of Service: 12/01/24 XR/XR hip RT min 2V(w/wo pelvis)*: fracture Single frontal view pelvis and 2 views right hip CLINICAL HISTORY: Fell out of bed, abnormal imaging at outside facility COMPARISON: CT 12/01/2024 FINDINGS: 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 Moderate joint space narrowing with bilateral hips. Postsurgical changes lumbosacral junction XR/XR hip RT min 2V(w/wo pelvis)* IMPRESSION: Advanced AVN with associated bilateral acute to subacute subchondral fracture lucencies Impression dictated by: Nikos Rivera M.D. 12/02/2024 8:15 AM Dictation Location: [place] [address] Transcribed By: [facility] 12/02/24 0815 Dictated By: Nikos Rivera MD 12/02/24 0812 Signed By: 12/02/24 0815 Normal [facility] XR low pelvis w/RT x-table h ipon 12-02-2024 XR low pelvis w/RT x-table hip [facility] Main [address] [address] XRay Report Signed Patient: Rehan Trejo MR#: [id number] : 1965 Acct:[id number] Age/Sex: 59 / M ADM Date: 12/01/24 Loc: 4N Room: 4W5384-1 Type: ADM IN Attending Dr: Luis Alberto Hearn MD Copies to: MD Nishant Whittaker DO Ordering Provider: Nishant Ceja DO Date of Service: 12/02/24 XR/XR low pelvis w/RT x-table hip: Total hip, do in PACU Plain film of pelvis with cross table right hip HISTORY: Postop right total hip arthroplasty COMPARISON: 12/02/2024 preoperative assessment Adequate right hip arthroplasty hardware. No complication. Chronic left hip AVN findings. XR/XR low pelvis w/RT x-table hip IMPRESSION: Uncomplicated right hip arthroplasty Impression dictated by: Zaire Saxena M.D. 12/02/2024 9:09 PM Dictation Location: [place] [address] Transcribed By: [facility] 12/02/242108 Dictated By: Zaire Saxena DO 12/02/242106 Signed By: 12/02/242108 Normal [facility] aPTT in Platelet poor plasma by Coagulation assayOrdered By: Diana Forde on 12-02-2024 aPTT Coag (PPP) [Time] Activated partial thromboplastin time (aPTT) in platelet poor plasma by coagulation a 25.1-36.5 [facility] Comment on above: A hematocrit value g reater than 55% may lead to inaccurate results in coagulation testing. Patients having hematocrit values >55% require a special collection tube for coagulation studies. Please contact the laboratory at [phone] for redraw instructions. aPTT Coag (PPP) [Time] 27.2 s 25.1-36.5 [facility] Comment on above: A hematocrit value g reater than 55% may lead to inaccurate results in coagulation testing. Patients having hematocrit values >55% require a special collection tube for coagulation studies. Please contact the laboratory at [phone] for redraw instructions. Office Visiton 10-01-2024 Follow-up visit [id number] Rehan Trejo 1965 M Date Provider Department Center 10/01/2024 27375-HWWWRVELISABETH VIDAL [facility] No family history on file Level of Service:58109 [place] OFFICE/OUTPATIENT ESTABLISHED MOD MDM 30 MIN Reason for Visit and Comments: Chest Pain [055347] - Intermittent, describes it as sharp at times. Hypertension [315099] Hyperlipidemia [182] - He stopped taking atorvastatin for no reason in particular. Abnormal ECG [293] - Has loop recorder, denies palpitations and lightheadedness/syncope. Shortness of Breath [063168] - Gets SOB w/wo exertion. Normal [facility] Office Visiton 03-28-2024 Follow-up visit [id number] Rehan Trejo Amaury 1965 M [facility] Provider Department Center 03/28/2024 120-BETTY HUI [facility] No family history on file Level of Service:00167 [place] OFFICE/OUTPATIENT ESTABLISHED LOW MDM 20 MIN Normal [facility] CBC AUTO DIFFon 11-28-2022 BASO # 0.0 103/ul Normal 0.0-0.1 [facility] Comment on above: Performed By: #### B BANQUET SERVER, T7, CMP, TSH #### [facility] [address] [place] [address] [address] Get Whitten Basophils/100 WBC (Bld) 0.4 % Normal 0.2-2.0 [facility] Comment on above: Performed By: #### B BANQUET SERVER, T7, CMP, TSH #### [facility] [address] [place] [address] [address] Get Whitten EO # 0.1 103/ul Normal 0.0-0.7 [facility] Comment on above: Performed By: #### B BANQUET SERVER, T7, CMP, TSH #### [facility] [address] [place] [address] [address] Get Whitten Eosinophils/100 WBC (Bld) 0.5 % Critically low 0.9-7.0 [facility] Comment on above: Performed By: #### B BANQUET SERVER, T7, CMP, TSH #### [facility] [address] [place] [address] [address] Get Whitten Erythrocyte distribution width (RBC) [Ratio] 18.6 % Critically high 11.0-15.0 [facility] Comment on above: Performed By: #### B BANQUET SERVER, T7, CMP, TSH #### [facility] [address] [place] [address] Dr. Get Whitten Hematocrit (Bld) [Volume fraction] 33.3 % Critically low 42.0-54.0 [facility] Comment on above: Performed By: #### B BANQUET SERVER, T7, CMP, TSH #### [facility] [address] [place] [address] Dr. Get Whitten Hemoglobin (Bld) [Mass/Vol] 11.1 g/dL Critically low 14.0-18.0 [facility] Comment on above: Performed By: #### B BANQUET SERVER, T7, CMP, TSH #### [facility] [address] [place] [address] Dr. Get Whitten IG # 0.30 10e3/ul Critically high 0.00-0.03 [facility] Comment on above: Performed By: #### B BANQUET SERVER, T7, CMP, TSH #### [facility] [address] [place] [address] Dr. Get Whitten IG % 3.3 % Critically high 0.0-0.5 [facility] Comment on above: Performed By: #### B BANQUET SERVER, T7, CMP, TSH #### [facility] [address] [place] [address] Dr. Get Whitten LYMPH # 3.0 103/ul Normal 1.2-3.8 [facility] Comment on above: Performed By: #### B BANQUET SERVER, T7, CMP, TSH #### [facility] [address] [place] [address] Dr. Get Whitten Lymphocytes/100 WBC (Bld) 32.7 % Normal 20.5-60.0 [facility] Comment on above: Performed By: #### B BANQUET SERVER, T7, CMP, TSH #### [facility] [address] [place] [address] Dr. Get Whitten MANUAL DIFF REQ NO Normal [facility] Comment on above: Performed By: #### B BANQUET SERVER, T7, CMP, TSH #### [facility] [address] [place] [address] Dr. Get Whitten MCH (RBC) [Entitic mass] 34.8 pg Critically high 25.9-34.0 [facility] Comment on above: Performed By: #### B BANQUET SERVER, T7, CMP, TSH #### [facility] [address] [place] [address] Dr. Get Whitten MCHC (RBC) [Mass/Vol] 33.3 g/dL Normal 29.9-35.2 [facility] Comment on above: Performed By: #### B BANQUET SERVER, T7, CMP, TSH #### [facility] [address] [place] [address] Dr. Get Whitten MCV (RBC) [Entitic vol] 104.4 fL Critically high 80.0-94.0 [facility] Comment on above: Performed By: #### B BANQUET SERVER, T7, CMP, TSH #### [facility] [address] [place] [address] Dr. Get Whitten MONO # 0.4 103/ul Normal 0.3-0.8 [facility] Comment on above: Performed By: #### B BANQUET SERVER, T7, CMP, TSH #### [facility] [address] [place] [address] Dr. Get Whitten Monocytes/100 WBC (Bld) 4.2 % Normal 1.7-12.0 [facility] Comment on above: Performed By: #### B BANQUET SERVER, T7, CMP, TSH #### [facility] [address] [place] [address] Dr. Get Whitten NEUT # 5.4 103/ul Normal 1.4-6.5 [facility] Comment on above: Performed By: #### B BANQUET SERVER, T7, CMP, TSH #### [facility] [address] [place] [address] Dr. Get Whitten Neutrophils/100 WBC (Bld) 58.9 % Normal 43.0-75.0 [facility] Comment on above: Performed By: #### B BANQUET SERVER, T7, CMP, TSH #### [facility] [address] [place], [place] [id number] Dr. Get Whitten Platelet mean volume (Bld) [Entitic vol] 9.5 fL Normal 9.5-13.5 [facility] Comment on above: Performed By: #### B BANQUET SERVER, T7, CMP, TSH #### [facility] [address] [place] [address] Dr. Get Whitten PLT 187 103/ul Normal 150-450 [facility] Comment on above: Performed By: #### B BANQUET SERVER, T7, CMP, TSH #### [facility] [address] [place] [address] Dr. Get Whitten RBC 3.19 106/ul Critically low 4.70-6.10 [facility] Comment on above: Performed By: #### B BANQUET SERVER, T7, CMP, TSH #### [facility] [address] [place] [address] Dr. Get Whitten WBC 9.1 103/ul Normal 4.0-11.0 [facility] Comment on above: Performed By: #### B BANQUET SERVER, T7, CMP, TSH #### [facility] [address] [place] [address] Dr. Get Whitten PROF 14(COMP METB)on 023 Albumin [Mass/Vol] 3.9 g/dL Normal 3.4-5.0 [facility] Comment on above: Performed By: #### C MP #### [facility] [address] [place] [address] Dr. Get Whitten Albumin/Globulin [Mass ratio] 1.1 {ratio} Normal [facility] Comment on above: Performed By: #### C MP #### [facility] [address] [place] [address] Dr. Get Whitten ALP [Catalytic activity/Vol] 34 U/L Critically low 46-116 [facility] Comment on above: Performed By: #### C MP #### [facility] [address] [place] [address] Dr. Get Whitten ALT [Catalytic activity/Vol] 21 U/L Normal 16-63 [facility] Comment on above: Performed By: #### C MP #### [facility] [address] [address] [address] Get Whitten Anion gap [Moles/Vol] 17.7 mmol/L Normal [facility] Comment on above: Performed By: #### C MP #### [facility] [address] [address] [address] Get Whitten AST [Catalytic activity/Vol] 15 U/L Normal 15-37 [facility] Comment on above: Performed By: #### C MP #### [facility] [address] [place] [address] Dr. Get Whitten Bilirubin [Mass/Vol] 0.3 mg/dL Normal 0.2-1.0 [facility] Comment on above: Performed By: #### C MP #### [facility] [address] [place] [address] Dr. Get Whitten Calcium [Mass/Vol] 8.7 mg/dL Normal 8.5-10.1 [facility] Comment on above: Performed By: #### C MP #### [facility] [address] [place] [address] Dr. Get Whitten Chloride [Moles/Vol] 99 mmol/L Normal 98-107 [facility] Comment on above: Performed By: #### C MP #### [facility] [address] [place] [address] Dr. Get Whitten CO2 [Moles/Vol] 21.8 mmol/L Normal 21.0-32.0 [facility] Comment on above: Performed By: #### C MP #### [facility] [address] [place] [address] Dr. Get Whitten Creatinine [Mass/Vol] 1.69 mg/dL Critically high 0.70-1.30 [facility] Comment on above: Performed By: #### C MP #### [facility] [address] [place] [address] Dr. Get Whitten EGFR-AF CHADIAN 51 mL/min/1.73m2 Critically low >=60 [facility] Comment on above: Performed By: #### C MP #### [facility] [address] [address] [address] Get Whitten EGFR-NON AF CHADIAN 42 mL/min/1.73m2 Critically low >=60 [facility] Comment on above: Performed By: #### C MP #### [facility] [address] [address] [address] Get Whitten Globulin (S) [Mass/Vol] 3.6 g/dL Normal [facility] Comment on above: Performed By: #### C MP #### [facility] [address] [address] [address] Get Whitten Glucose [Mass/Vol] 96 mg/dL Normal 74-106 [facility] Comment on above: Performed By: #### C MP #### [facility] [address] [address] [address] Get Whitten Potassium [Moles/Vol] 3.5 mmol/L Normal 3.5-5.1 [facility] Comment on above: Performed By: #### C MP #### [facility] [address] [place] [address] Dr. Get Whitten Protein [Mass/Vol] 7.5 g/dL Normal 6.4-8.2 [facility] Comment on above: Performed By: #### C MP #### [facility] [address] [place] [address] Dr. Get Whitten Sodium [Moles/Vol] 135 mmol/L Critically low 136-145 [facility] Comment on above: Performed By: #### C MP #### [facility] [address] [address] [address] Get Whitten Urea nitrogen [Mass/Vol] 15.0 mg/dL Normal 7.0-18.0 [facility] Comment on above: Performed By: #### C MP #### [facility] [address] [place] [address] Dr. Get Whitten Urea nitrogen/Creatinine [Mass ratio] 8.9 mg/mg Normal [facility] Comment on above: Performed By: #### C MP #### [facility] [address] [place] [address] Dr. Get Whitten T3, TOTAL (TRIIODOTHYRONINE) on 11-28-2022 T3, TOTAL <20 Critically low 71-180 [facility] Comment on above: Performed By: #### C VDTBH #### [facility] [address] [place] [address] Dr. Get Whitten AMMONIAon 11-27-2022 Ammonia (P) [Mass/Vol] ug/dL Critically low 11-32 [facility] Comment on above: Performed By: #### C MP #### [facility] [address] [place] [address] Dr. Get Whitten BNPon 11-27-2022 Natriuretic peptide B (Bld) [Mass/Vol] 50.0 pg/mL Normal <=900.0 [facility] Comment on above: Performed By: #### B BANQUET SERVER, T7, CMP, TSH #### [facility] [address] [place] [address] Dr. Get Whitten CARDIAC ANA ADMITon 023 CK [Catalytic activity/Vol] 173 U/L Normal 39-308 [facility] Comment on above: Performed By: #### B BANQUET SERVER, T7, CMP, TSH #### [facility] [address] [place] [address] Dr. Get Whitten CK.MB [Mass/Vol] 1.64 ng/mL Normal <=3.60 [facility] Comment on above: Performed By: #### B BANQUET SERVER, T7, CMP, TSH #### [facility] [address] [place] [address] Dr. Get Whitten HSTROP 4.3 pg/mL Normal 4.0-76.1 [facility] Comment on above: Result Comment: CUT- OFF POINTS HAVE BEEN ESTABLISHED BASED ON THE FOURTH UNIVERSAL DEFINITIONS OF MYOCARDIAL INFARCTION. THE UPPER REFERENCE LIMIT (URL) OF TROPONIN, DEFINED THE 99TH PERCENTILE OF cTnI DISTRIBUTION IN A REFERENCE POPULATION, HAS BEEN CONFIRMED THE DECISION THRESHOLD FOR MS DIAGNOSIS. Performed By: #### B BANQUET SERVER, T7, CMP, TSH #### [facility] [address] [place] [address] Dr. Get Whitten RAFA 72 ng/mL Normal 16-96 [facility] Comment on above: Performed By: #### B BANQUET SERVER, T7, CMP, TSH #### [facility] [address] [place] [address] Dr. Get Whitten CBC AUTO DIFFon 11-27-2022 BASO # 0.1 103/ul Normal 0.0-0.1 [facility] Comment on above: Performed By: #### C VDTBH #### [facility] [address] [place] [address] Dr. Get Whitten Basophils/100 WBC (Bld) 0.6 % Normal 0.2-2.0 [facility] Comment on above: Performed By: #### C VDTBH #### [facility] [address] [place] [address] Dr. Get Whitten EO # 0.0 103/ul Normal 0.0-0.7 [facility] Comment on above: Performed By: #### C VDTBH #### [facility] [address] [place] [address] Dr. Get Whitten Eosinophils/100 WBC (Bld) 0.4 % Critically low 0.9-7.0 [facility] Comment on above: Performed By: #### C VDTBH #### [facility] [address] [place] [address] Dr. Get Whitten Erythrocyte distribution width (RBC) [Ratio] 18.6 % Critically high 11.0-15.0 [facility] Comment on above: Performed By: #### C VDTBH #### [facility] [address] [place] [address] Dr. Get Whitten Hematocrit (Bld) [Volume fraction] 35.4 % Critically low 42.0-54.0 [facility] Comment on above: Performed By: #### C VDTBH #### [facility] [address] [place] [address] Dr. Get Whitten Hemoglobin (Bld) [Mass/Vol] 11.9 g/dL Critically low 14.0-18.0 [facility] Comment on above: Performed By: #### C VDTBH #### [facility] [address] [place], [place] [id number] Dr. Get Whitten IG # 0.28 10e3/ul Critically high 0.00-0.03 [facility] Comment on above: Performed By: #### C VDTBH #### [facility] [address] [place] [address] Dr. Get Whitten IG % 3.5 % Critically high 0.0-0.5 [facility] Comment on above: Performed By: #### C VDTBH #### [facility] [address] [place] [address] Dr. Get Whitten LYMPH # 3.3 103/ul Normal 1.2-3.8 [facility] Comment on above: Performed By: #### C VDTBH #### [facility] [address] [place] [address] Dr. Get Whitten Lymphocytes/100 WBC (Bld) 41.6 % Normal 20.5-60.0 [facility] Comment on above: Performed By: #### C VDTBH #### [facility] [address] [place] [address] Dr. Get Whitten MANUAL DIFF REQ NO Normal [facility] Comment on above: Performed By: #### C VDTBH #### [facility] [address] [place] [address] Dr. Get Whitten MCH (RBC) [Entitic mass] 35.1 pg Critically high 25.9-34.0 [facility] Comment on above: Performed By: #### C VDTBH #### [facility] [address] [place] [address] Dr. Get Whitten MCHC (RBC) [Mass/Vol] 33.6 g/dL Normal 29.9-35.2 [facility] Comment on above: Performed By: #### C VDTBH #### [facility] [address] [place] [address] Dr. Get Whitten MCV (RBC) [Entitic vol] 104.4 fL Critically high 80.0-94.0 [facility] Comment on above: Performed By: #### C VDTBH #### [facility] [address] [place] [address] Dr. Get Whitten MONO # 0.4 103/ul Normal 0.3-0.8 [facility] Comment on above: Performed By: #### C VDTBH #### [facility] [address] [place] [address] Dr. Get Whitten Monocytes/100 WBC (Bld) 5.0 % Normal 1.7-12.0 [facility] Comment on above: Performed By: #### C VDTBH #### [facility] [address] [place] [address] Dr. Get Whitten NEUT # 3.9 103/ul Normal 1.4-6.5 [facility] Comment on above: Performed By: #### C VDTBH #### [facility] [address] [place] [address] Dr. Get Whitten Neutrophils/100 WBC (Bld) 48.9 % Normal 43.0-75.0 [facility] Comment on above: Performed By: #### C VDTBH #### [facility] [address] [place] [address] Dr. Get Whitten Platelet mean volume (Bld) [Entitic vol] 9.5 fL Normal 9.5-13.5 [facility] Comment on above: Performed By: #### C VDTBH #### [facility] [address] [place] [address] Dr. Get Whitten PLT 182 103/ul Normal 150-450 [facility] Comment on above: Performed By: #### C VDTBH #### [facility] [address] [place] [address] Dr. Get Whitten RBC 3.39 106/ul Critically low 4.70-6.10 [facility] Comment on above: Performed By: #### C VDTBH #### [facility] [address] [place] [address] Dr. Get Whitten WBC 8.0 103/ul Normal 4.0-11.0 [facility] Comment on above: Performed By: #### C VDTBH #### [facility] [address] [place] [address] CSPINE WO CONon [...] by: SHEN SOSA Date: 2022-11-27 11:26 Normal [facility] CT STROKE HEAD WOon 11-28-[address] STROKE HEAD WO EXAMINATION: CT STRO [...] by: SHEN SOSA Date: 2022-11-27 11:16 Normal [facility] Covid-19 PCR (CVDTBH)on 11-13 SARS-CoV-2 (COVID-19) RNA ASHLEE+probe Ql (Unsp spec) Not detected Normal NOT DETECTED [facility] Comment on above: Result Comment: THIS TEST IS NOT APPROVED BY THE FDA. IT HAS BEEN AUTHORIZED FOR USE UNDER AN EMERGENCY USE AUTHORIZATION. Performed By: #### C MP #### [facility] [address] [place] [address] Dr. Get Whitten ETHANOL (BLD ALC)on 11-28-19 23 ALC NOTE NOTE: 80 mg/dl is th e legal limit for a blood alcohol level Normal [facility] Comment on above: Performed By: #### B BANQUET SERVER, T7, CMP, TSH #### [facility] [address] [place] [address] Dr. Get Whitten Ethanol [Mass/Vol] mg/dL Normal [facility] Comment on above: Performed By: #### B BANQUET SERVER, T7, CMP, TSH #### [facility] [address] [place] [address] Dr. Get Whitten MAGNESIUMon 11-27-2022 Magnesium [Mass/Vol] 2.3 mg/dL Normal 1.8-2.4 [facility] Comment on above: Performed By: #### B BANQUET SERVER, T7, CMP, TSH #### [facility] [address] [place] [address] Dr. Get Whitten PROF 14(COMP METB)on 023 Albumin [Mass/Vol] 4.1 g/dL Normal 3.4-5.0 [facility] Comment on above: Performed By: #### B BANQUET SERVER, T7, CMP, TSH #### [facility] [address] [place] [address] Dr. Get Whitten Albumin/Globulin [Mass ratio] 1.1 {ratio} Normal [facility] Comment on above: Performed By: #### B BANQUET SERVER, T7, CMP, TSH #### [facility] [address] [place] [address] Dr. Get Whitten ALP [Catalytic activity/Vol] 36 U/L Critically low 46-116 [facility] Comment on above: Performed By: #### B BANQUET SERVER, T7, CMP, TSH #### [facility] [address] [address] [address] Get Whitten ALT [Catalytic activity/Vol] 15 U/L Critically low 16-63 [facility] Comment on above: Performed By: #### B BANQUET SERVER, T7, CMP, TSH #### [facility] [address] [address] [address] Get Whitten Anion gap [Moles/Vol] 15.0 mmol/L Normal [facility] Comment on above: Performed By: #### B BANQUET SERVER, T7, CMP, TSH #### [facility] [address] [place] [address] Dr. Get Whitten AST [Catalytic activity/Vol] 13 U/L Critically low 15-37 [facility] Comment on above: Performed By: #### B BANQUET SERVER, T7, CMP, TSH #### [facility] [address] [place] [address] Dr. Get Whitten Bilirubin [Mass/Vol] 0.3 mg/dL Normal 0.2-1.0 [facility] Comment on above: Performed By: #### B BANQUET SERVER, T7, CMP, TSH #### [facility] [address] [place] [address] Dr. Get Whitten Calcium [Mass/Vol] 9.1 mg/dL Normal 8.5-10.1 [facility] Comment on above: Performed By: #### B BANQUET SERVER, T7, CMP, TSH #### [facility] [address] [place] [address] Dr. Get Whitten Chloride [Moles/Vol] 101 mmol/L Normal 98-107 [facility] Comment on above: Performed By: #### B BANQUET SERVER, T7, CMP, TSH #### [facility] [address] [place] [address] Dr. Get Whitten CO2 [Moles/Vol] 22.2 mmol/L Normal 21.0-32.0 [facility] Comment on above: Performed By: #### B BANQUET SERVER, T7, CMP, TSH #### [facility] [address] [address] [address] Get Whitten Creatinine [Mass/Vol] 1.84 mg/dL Critically high 0.70-1.30 [facility] Comment on above: Performed By: #### B BANQUET SERVER, T7, CMP, TSH #### [facility] [address] [place] [address] Dr. Get Whitten EGFR-AF CHADIAN 46 mL/min/1.73m2 Critically low >=60 [facility] Comment on above: Performed By: #### B BANQUET SERVER, T7, CMP, TSH #### [facility] [address] [place] [address] Dr. Get Whitten EGFR-NON AF CHADIAN 38 mL/min/1.73m2 Critically low >=60 [facility] Comment on above: Performed By: #### B BANQUET SERVER, T7, CMP, TSH #### [facility] [address] [place] [address] Dr. Get Whitten Globulin (S) [Mass/Vol] 3.6 g/dL Normal [facility] Comment on above: Performed By: #### B BANQUET SERVER, T7, CMP, TSH #### [facility] [address] [place] [address] Dr. Get Whitten Glucose [Mass/Vol] 87 mg/dL Normal 74-106 [facility] Comment on above: Performed By: #### B BANQUET SERVER, T7, CMP, TSH #### [facility] [address] [place] [address] Dr. Get Whitten Potassium [Moles/Vol] 4.2 mmol/L Normal 3.5-5.1 [facility] Comment on above: Performed By: #### B BANQUET SERVER, T7, CMP, TSH #### [facility] [address] [place] [address] Dr. Get Whitten Protein [Mass/Vol] 7.7 g/dL Normal 6.4-8.2 [facility] Comment on above: Performed By: #### B BANQUET SERVER, T7, CMP, TSH #### [facility] [address] [place] [address] Dr. Get Whitten Sodium [Moles/Vol] 134 mmol/L Critically low 136-145 [facility] Comment on above: Performed By: #### B BANQUET SERVER, T7, CMP, TSH #### [facility] [address] [place] [address] Dr. Get Whitten Urea nitrogen [Mass/Vol] 14.0 mg/dL Normal 7.0-18.0 [facility] Comment on above: Performed By: #### B BANQUET SERVER, T7, CMP, TSH #### [facility] [address] [place] [address] Dr. Get Whitten Urea nitrogen/Creatinine [Mass ratio] 7.6 mg/mg Normal [facility] Comment on above: Performed By: #### B BANQUET SERVER, T7, CMP, TSH #### [facility] [address] [place] [address] Dr. Get Whitten PROTIMEon 11-27-2022 INR Coag (PPP) [Relative time] 0.98 {INR} Normal [facility] Comment on above: Performed By: #### B BANQUET SERVER, T7, CMP, TSH #### [facility] [address] [place] [address] Dr. Get Whitten INR GUIDELINES SEE BELOW Normal [facility] Comment on above: Result Comment: JORGE RED INR: 2.0 - 3.0 CONDITIONS NOT LISTED BELOW 2.5 - 3.5 FOR PROSTHETIC HEART VALVE REPLACEMENT 2.5 - 3.5 RECURRENT THROMBOSIS Performed By: #### B BANQUET SERVER, T7, CMP, TSH #### [facility] [address] [place] [address] Dr. Get Whitten PT Coag (PPP) [Time] 10.4 s Normal 9.0-11.6 [facility] Comment on above: Performed By: #### B BANQUET SERVER, T7, CMP, TSH #### [facility] [address] [place] [address] Dr. Get Whitten PTTon 11-27-2022 aPTT Coag (Bld) [Time] 30.4 s Normal 22.3-36.2 [facility] Comment on above: Performed By: #### B BANQUET SERVER, T7, CMP, TSH #### [facility] [address] [place] [address] Dr. Get Whitten SYMPTOMATIC COVID-19 ANTIGEN on 11-27-2022 EUA Statement SEE BELOW Normal [facility] Comment on above: Result Comment: This [...] By: #### C MP, HSTROPN, BNP #### [facility] [address] [place] [address] Dr. Get Whitten SARS-CoV-2 (COVID-19) RNA ASHLEE+probe Ql (Unsp spec) Negative Normal NEGATIVE [facility] Comment on above: Performed By: #### C MP, HSTROPN, BNP #### [facility] [address] [place] [address] Dr. Get Whitten T4on 11-27-2022 T4 [Mass/Vol] 0.90 ug/dL Critically low 4.50-12.10 [facility] Comment on above: Performed By: #### B BANQUET SERVER, T7, CMP, TSH #### [facility] [address] [place] [address] Dr. Get Whitten TROPONIN, HIGH SENSITIVITYon 11-27-2022 HSTROP 4.1 pg/mL Normal 4.0-76.1 [facility] Comment on above: Result Comment: CUT- OFF POINTS HAVE BEEN ESTABLISHED BASED ON THE FOURTH UNIVERSAL DEFINITIONS OF MYOCARDIAL INFARCTION. THE UPPER REFERENCE LIMIT (URL) OF TROPONIN, DEFINED THE 99TH PERCENTILE OF cTnI DISTRIBUTION IN A REFERENCE POPULATION, HAS BEEN CONFIRMED THE DECISION THRESHOLD FOR MS DIAGNOSIS. Performed By: #### B BANQUET SERVER, T7, CMP, TSH #### [facility] [address] [place], [place] [address] Dr. Get Whitten TSHon 11-27-2022 TSH 134.470 uIU/mL Critically high 0.358-3.74 0 [facility] Comment on above: Performed By: #### B BANQUET SERVER, T7, CMP, TSH #### [facility] Laboratory [address], [place] [address] Dr. Get Whitten XR CHEST 1 Von [...] by: SHEN SOSA Date: 2022-11-27 11:19 Normal [facility] XR CSPINE MIN 4 VIEWSon 10-14 XR CSPINE MIN 4 VIEWS EXAMINATION: XR CS PINE MIN 4 VIEWS HISTORY: Cervical radiculopathy COMPARISON: [...] by: SHEN SOSA Date: 2022-10-24 10:22 Normal [facility] XR LSPINE MIN 4 VIEWSon 10-14 XR LSPINE MIN 4 VIEWS EXAMINATION: XR LS PINE MIN 4 VIEWS HISTORY: Lumbar radiculopathy ; [...] SHEN SOSA Date: 2022-10-24 10:19 Normal [facility] H PYLORI ANTIBODY IGGon H. PYLORI IGG ABS 0.07 Index Value Normal 0.00-0.79 [facility] Comment on above: Result Comment: Nega tive <0.80 Equivocal 0.80 - 0.89 Positive >0.89 Performed By: #### B BANQUET SERVER, T7, CMP, TSH #### [facility] [address] [place] [address] Dr. Get Whitten BNPon 04-15-2022 Natriuretic peptide B (Bld) [Mass/Vol] 138.0 pg/mL Normal <=900.0 [facility] Comment on above: Performed By: #### B BANQUET SERVER, T7, CMP, TSH #### [facility] [address] [place] [address] Dr. Get Whitten CBC AUTO DIFFon 04-15-2022 BASO # 0.0 103/ul Normal 0.0-0.1 [facility] Comment on above: Performed By: #### C MP, HSTROPN, BNP #### [facility] [address] [place] [address] Dr. Get Whitten Basophils/100 WBC (Bld) 0.4 % Normal 0.2-2.0 [facility] Comment on above: Performed By: #### C MP, HSTROPN, BNP #### [facility] [address] [place] [address] Dr. Get Whitten EO # 0.0 103/ul Normal 0.0-0.7 [facility] Comment on above: Performed By: #### C MP, HSTROPN, BNP #### [facility] [address] [place] [address] Dr. Get Whitten Eosinophils/100 WBC (Bld) 0.3 % Critically low 0.9-7.0 [facility] Comment on above: Performed By: #### C MP, HSTROPN, BNP #### [facility] [address] [place] [address] Dr. Get Whitten Erythrocyte distribution width (RBC) [Ratio] 13.2 % Normal 11.0-15.0 [facility] Comment on above: Performed By: #### C MP, HSTROPN, BNP #### [facility] [address] [place] [address] Dr. Get Whitten Hematocrit (Bld) [Volume fraction] 37.9 % Critically low 42.0-54.0 [facility] Comment on above: Performed By: #### C MP, HSTROPN, BNP #### [facility] [address] [place] [address] Dr. Get Whitten Hemoglobin (Bld) [Mass/Vol] 13.1 g/dL Critically low 14.0-18.0 [facility] Comment on above: Performed By: #### C MP, HSTROPN, BNP #### [facility] [address] [place] [address] Dr. Get Whitten IG # 0.24 10e3/ul Critically high 0.00-0.03 [facility] Comment on above: Performed By: #### C MP, HSTROPN, BNP #### [facility] [address] [place] [address] Dr. Get Whitten IG % 3.1 % Critically high 0.0-0.5 [facility] Comment on above: Performed By: #### C MP, HSTROPN, BNP #### [facility] [address] [place] [address] Dr. Get Whitten LYMPH # 3.1 103/ul Normal 1.2-3.8 [facility] Comment on above: Performed By: #### C MP, HSTROPN, BNP #### [facility] [address] [place] [address] Dr. Get Whitten Lymphocytes/100 WBC (Bld) 40.3 % Normal 20.5-60.0 [facility] Comment on above: Performed By: #### C MP, HSTROPN, BNP #### [facility] [address] [place] [address] Dr. Get Whitten MANUAL DIFF REQ NO Normal [facility] Comment on above: Performed By: #### C MP, HSTROPN, BNP #### [facility] [address] [place] [address] Dr. Get Whitten MCH (RBC) [Entitic mass] 36.1 pg Critically high 25.9-34.0 [facility] Comment on above: Performed By: #### C MP, HSTROPN, BNP #### [facility] [address] [place] [address] Dr. eGt Whitten MCHC (RBC) [Mass/Vol] 34.6 g/dL Normal 29.9-35.2 [facility] Comment on above: Performed By: #### C MP, HSTROPN, BNP #### [facility] [address] [place] [address] Dr. Get Whitten MCV (RBC) [Entitic vol] 104.4 fL Critically high 80.0-94.0 [facility] Comment on above: Performed By: #### C MP, HSTROPN, BNP #### [facility] [address] [place] [address] Dr. Get Whitten MONO # 0.7 103/ul Normal 0.3-0.8 [facility] Comment on above: Performed By: #### C MP, HSTROPN, BNP #### [facility] [address] [place] [address] Dr. Get Whitten Monocytes/100 WBC (Bld) 9.4 % Normal 1.7-12.0 [facility] Comment on above: Performed By: #### C MP, HSTROPN, BNP #### [facility] [address] [place] [address] Dr. Get Whitten NEUT # 3.6 103/ul Normal 1.4-6.5 [facility] Comment on above: Performed By: #### C MP, HSTROPN, BNP #### [facility] [address] [place] [address] Dr. Get Whitten Neutrophils/100 WBC (Bld) 46.5 % Normal 43.0-75.0 [facility] Comment on above: Performed By: #### C MP, HSTROPN, BNP #### [facility] [address] [place] [address] Dr. Get Whitten Platelet mean volume (Bld) [Entitic vol] 8.5 fL Critically low 9.5-13.5 [facility] Comment on above: Performed By: #### C MP, HSTROPN, BNP #### [facility] [address] [place] [address] Dr. Get Whitten PLT 128 103/ul Critically low 150-450 [facility] Comment on above: Performed By: #### C MP, HSTROPN, BNP #### [facility] [address] [place] [address] Dr. Get Whitten RBC 3.63 106/ul Critically low 4.70-6.10 [facility] Comment on above: Performed By: #### C MP, HSTROPN, BNP #### [facility] [address] [place] [address] Dr. Get Whitten WBC 7.7 103/ul Normal 4.0-11.0 [facility] Comment on above: Performed By: #### C MP, HSTROPN, BNP #### [facility] [address] [place] [address] Dr. Get Whitten FREE THYROXINE INDEX T7on FTI 0.22 Critically low 1.30-4.50 [facility] Comment on above: Performed By: #### B BANQUET SERVER, T7, CMP, TSH #### [facility] [address] [place] [address] [address] Get Whitten T3U 37.0 % Normal 33.0-40.0 [facility] Comment on above: Performed By: #### B BANQUET SERVER, T7, CMP, TSH #### [facility] [address] [address] [address] Get Whitten T4 [Mass/Vol] 0.60 ug/dL Critically low 4.50-12.10 [facility] Comment on above: Performed By: #### B BANQUET SERVER, T7, CMP, TSH #### [facility] [address] [place] [address] Dr. Get Whitten IRONon 04-15-2022 Iron [Mass/Vol] 74.0 ug/dL Normal 65.0-175.0 [facility] Comment on above: Performed By: #### C VDTBH #### [facility] [address] [place] [address] Dr. Get Whitten PROF 14(COMP METB)on 022 Albumin [Mass/Vol] 3.6 g/dL Normal 3.4-5.0 [facility] Comment on above: Performed By: #### B BANQUET SERVER, T7, CMP, TSH #### [facility] [address] [place] [address] Dr. Get Whitten Albumin/Globulin [Mass ratio] 1.3 {ratio} Normal [facility] Comment on above: Performed By: #### B BANQUET SERVER, T7, CMP, TSH #### [facility] [address] [place] [address] Dr. Get Whitten ALP [Catalytic activity/Vol] 41 U/L Critically low 46-116 [facility] Comment on above: Performed By: #### B BANQUET SERVER, T7, CMP, TSH #### [facility] [address] [place] [address] Dr. Get Whitten ALT [Catalytic activity/Vol] 111 U/L Critically high 16-63 [facility] Comment on above: Performed By: #### B BANQUET SERVER, T7, CMP, TSH #### [facility] [address] [place] [address] Dr. Get Whitten Anion gap [Moles/Vol] 10.3 mmol/L Normal [facility] Comment on above: Performed By: #### B BANQUET SERVER, T7, CMP, TSH #### [facility] [address] [address] [address] Get Whitten AST [Catalytic activity/Vol] 30 U/L Normal 15-37 [facility] Comment on above: Performed By: #### B BANQUET SERVER, T7, CMP, TSH #### [facility] [address] [place] [address] Dr. Get Whitten Bilirubin [Mass/Vol] 0.3 mg/dL Normal 0.2-1.0 [facility] Comment on above: Performed By: #### B BANQUET SERVER, T7, CMP, TSH #### [facility] [address] [place] [address] Dr. Get Whitten Calcium [Mass/Vol] 8.1 mg/dL Critically low 8.5-10.1 [facility] Comment on above: Performed By: #### B BANQUET SERVER, T7, CMP, TSH #### [facility] [address] [place] [address] Dr. Get Whitten Chloride [Moles/Vol] 98 mmol/L Normal 98-107 [facility] Comment on above: Performed By: #### B BANQUET SERVER, T7, CMP, TSH #### [facility] [address] [place] [address] Dr. Get Whitten CO2 [Moles/Vol] 24.7 mmol/L Normal 21.0-32.0 [facility] Comment on above: Performed By: #### B BANQUET SERVER, T7, CMP, TSH #### [facility] [address] [place] [address] Dr. Get Whitten Creatinine [Mass/Vol] 1.24 mg/dL Normal 0.70-1.30 [facility] Comment on above: Performed By: #### B BANQUET SERVER, T7, CMP, TSH #### [facility] [address] [address] [address] Get Whitten EGFR-AF CHADIAN >60 Normal >=60 [facility] Comment on above: Performed By: #### B BANQUET SERVER, T7, CMP, TSH #### [facility] [address] [place] [address] Dr. Get Whitten EGFR-NON AF CHADIAN =60 Normal >=60 [facility] Comment on above: Performed By: #### B BANQUET SERVER, T7, CMP, TSH #### [facility] [address] [place] [address] Dr. Get Whitten Globulin (S) [Mass/Vol] 2.7 g/dL Normal [facility] Comment on above: Performed By: #### B BANQUET SERVER, T7, CMP, TSH #### [facility] [address] [place] [address] Dr. Get Whitten Glucose [Mass/Vol] 107 mg/dL Critically high 74-106 T [facility] Comment on above: Performed By: #### B BANQUET SERVER, T7, CMP, TSH #### [facility] [address] [place] [address] Dr. Get Whitten Potassium [Moles/Vol] 4.0 mmol/L Normal 3.5-5.1 [facility] Comment on above: Performed By: #### B BANQUET SERVER, T7, CMP, TSH #### [facility] [address] [place] [address] Dr. Get Whitten Protein [Mass/Vol] 6.3 g/dL Critically low 6.4-8.2 [facility] Comment on above: Performed By: #### B BANQUET SERVER, T7, CMP, TSH #### [facility] [address] [place] [address] Dr. Get Whitten Sodium [Moles/Vol] 129 mmol/L Critically low 136-145 [facility] Comment on above: Performed By: #### B BANQUET SERVER, T7, CMP, TSH #### [facility] [address] [place] [address] Dr. Get Whitten Urea nitrogen [Mass/Vol] 12.0 mg/dL Normal 7.0-18.0 [facility] Comment on above: Performed By: #### B BANQUET SERVER, T7, CMP, TSH #### [facility] [address] [place] [address] Dr. Get Whitten Urea nitrogen/Creatinine [Mass ratio] 9.7 mg/mg Normal [facility] Comment on above: Performed By: #### B BANQUET SERVER, T7, CMP, TSH #### [facility] [address] [place] [address] Dr. Get Whitten TSHon 04-15-2022 TSH 76.327 uIU/mL Critically high 0.358-3.74 0 [facility] Comment on above: Performed By: #### B BANQUET SERVER, T7, CMP, TSH #### [facility] [address] [place] [address] Dr. Get Whitten BNPon 03-31-2022 Natriuretic peptide B (Bld) [Mass/Vol] 349.0 pg/mL Normal <=900.0 [facility] Comment on above: Performed By: #### B BANQUET SERVER, T7, CMP, TSH #### [facility] [address] [place] [address] Dr. Get Whitten CBC W MANUAL DIFFon 03-31-20 22 ATYPICAL LYMPH # 0.26 103/ul Normal [facility] Comment on above: Performed By: #### C MP #### [facility] [address] [place] [address] Dr. Get Whitten ATYPICAL LYMPH % 2 % Normal [facility] Comment on above: Performed By: #### C MP #### [facility] [address] [place] [address] Dr. Get Whitten BAND # 0.0 103/ul Normal 0.0-0.3 [facility] Comment on above: Performed By: #### C MP #### [facility] [address] [place] [address] Dr. Get Whitten BAND % 0 % Normal 0-5 [facility] Comment on above: Performed By: #### C MP #### [facility] [address] [place] [address] Dr. Get Whitten BASOM # 0.00 103/ul Normal 0.00-0.10 [facility] Comment on above: Performed By: #### C MP #### [facility] [address] [place] [address] Dr. Get Whitten BASOM % 0.0 % Critically low 0.2-2.0 [facility] Comment on above: Performed By: #### C MP #### [facility] [address] [place] [address] Dr. Get Whitten BLAST # Normal [facility] Comment on above: Performed By: #### C MP #### [facility] [address] [place] [address] Dr. Get Whitten BLAST % Normal [facility] Comment on above: Performed By: #### C MP #### [facility] [address] [place] [address] Dr. Get Whitten CORRECTED WBC Normal 4.0-11.0 [facility] Comment on above: Performed By: #### C MP #### [facility] [address] [place] [address] Dr. Get Whitten EOS # 0.00 103/ul Normal 0.00-0.70 [facility] Comment on above: Performed By: #### C MP #### [facility] [address] [place] [address] Dr. Get Whitten EOS% 0.0 % Critically low 0.9-7.0 [facility] Comment on above: Performed By: #### C MP #### [facility] [address] [place] [address] Dr. Get Whitten HCT 38.3 % Critically low 42.0-54.0 [facility] Comment on above: Performed By: #### C MP #### [facility] [address] [place] [address] Dr. Get Whitten HGB 13.7 g/dl Critically low 14.0-18.0 [facility] Comment on above: Performed By: #### C MP #### [facility] [address] [place] [address] Dr. Get Whitten LYMPHM # 1.43 103/ul Normal 1.20-3.80 [facility] Comment on above: Performed By: #### C MP #### [facility] [address] [place] [address] Dr. Get Whitten LYMPHM% 11.0 % Critically low 20.5-60.0 [facility] Comment on above: Performed By: #### C MP #### [facility] [address] [place] [address] Dr. Get Whitten MCH 36.3 pg Critically high 25.9-34.0 [facility] Comment on above: Performed By: #### C MP #### [facility] [address] [place] [address] Dr. Get Whitten MCHC 35.8 g/dl Critically high 29.9-35.2 [facility] Comment on above: Performed By: #### C MP #### [facility] [address] [place] [address] Dr. Get Whitten MCV 101.6 fL Critically high 80.0-94.0 [facility] Comment on above: Performed By: #### C MP #### [facility] [address] [place] [address] Dr. Get Whitten METAMYELOCYTE # Normal [facility] Comment on above: Performed By: #### C MP #### [facility] [address] [place] [address] Dr. Get Whitten METAMYELOCYTE % Normal [facility] Comment on above: Performed By: #### C MP #### [facility] [address] [place] [address] Dr. Get Whitten MONOM# 0.78 103/ul Normal 0.30-0.80 [facility] Comment on above: Performed By: #### C MP #### [facility] [address] [place] [address] Dr. Get Whitten MONOM% 6.0 % Normal 1.7-12.0 [facility] Comment on above: Performed By: #### C MP #### [facility] [address] [place] [address] Dr. Get Whitten MPV 8.7 fL Critically low 9.5-13.5 [facility] Comment on above: Performed By: #### C MP #### [facility] [address] [address] [address] Get Whitten MYELOCYTE # Normal [facility] Comment on above: Performed By: #### C MP #### [facility] [address] [address] [address] Get Whitten MYELOCYTE % Normal [facility] Comment on above: Performed By: #### C MP #### [facility] [address] [address] [address] Get Whitten NRBC Normal [facility] Comment on above: Performed By: #### C MP #### [facility] [address] [address] [address] Get Whitten PLT 225 103/ul Normal 150-450 [facility] Comment on above: Performed By: #### C MP #### [facility] [address] [place] [address] Dr. Get Whitten RBC 3.77 106/ul Critically low 4.70-6.10 [facility] Comment on above: Performed By: #### C MP #### [facility] [address] [place] [address] Dr. Get Whitten RDW 12.7 % Normal 11.0-15.0 [facility] Comment on above: Performed By: #### C MP #### [facility] [address] [place] [address] Dr. Get Whitten SEG # 10.53 103/ul Critically high 1.40-6.50 [facility] Comment on above: Performed By: #### C MP #### [facility] [address] [place] [address] Dr. Get Whitten SEG % 81.0 % Critically high 43.0-75.0 [facility] Comment on above: Performed By: #### C MP #### [facility] [address] [place] [address] Dr. Get Whitten WBC 13.0 103/ul Critically high 4.0-11.0 [facility] Comment on above: Performed By: #### C MP #### [facility] [address] [place] [address] Dr. Get Whitten CRPon 03-31-2022 CRP [Mass/Vol] mg/L Normal <=1.0 [facility] Comment on above: Performed By: #### B BANQUET SERVER, T7, CMP, TSH #### [facility] [address] [address] [address] Get Whitten PROF 14(COMP METB)on 022 Albumin [Mass/Vol] 3.3 g/dL Critically low 3.4-5.0 [facility] Comment on above: Performed By: #### B BANQUET SERVER, T7, CMP, TSH #### [facility] [address] [address] [address] Get Whitten Albumin/Globulin [Mass ratio] 1.2 {ratio} Normal [facility] Comment on above: Performed By: #### B BANQUET SERVER, T7, CMP, TSH #### [facility] [address] [place] [address] Dr. Get Whitten ALP [Catalytic activity/Vol] 48 U/L Normal 46-116 [facility] Comment on above: Performed By: #### B BANQUET SERVER, T7, CMP, TSH #### [facility] [address] [address] [address] Get Whitten ALT [Catalytic activity/Vol] 130 U/L Critically high 16-63 [facility] Comment on above: Performed By: #### B BANQUET SERVER, T7, CMP, TSH #### [facility] [address] [address] [address] Get Whitten Anion gap [Moles/Vol] 11.9 mmol/L Normal [facility] Comment on above: Performed By: #### B BANQUET SERVER, T7, CMP, TSH #### [facility] [address] [address] [address] Get Whitten AST [Catalytic activity/Vol] 50 U/L Critically high 15-37 [facility] Comment on above: Performed By: #### B BANQUET SERVER, T7, CMP, TSH #### [facility] [address] [address] [address] Get Whitten Bilirubin [Mass/Vol] 0.5 mg/dL Normal 0.2-1.0 [facility] Comment on above: Performed By: #### B BANQUET SERVER, T7, CMP, TSH #### [facility] [address] [place] [address] Dr. Get Whitten Calcium [Mass/Vol] 7.9 mg/dL Critically low 8.5-10.1 [facility] Comment on above: Performed By: #### B BANQUET SERVER, T7, CMP, TSH #### [facility] [address] [place] [address] Dr. Get Whitten Chloride [Moles/Vol] 99 mmol/L Normal 98-107 [facility] Comment on above: Performed By: #### B BANQUET SERVER, T7, CMP, TSH #### [facility] [address] [place] [address] Dr. Get Whitten CO2 [Moles/Vol] 18.4 mmol/L Critically low 21.0-32.0 [facility] Comment on above: Performed By: #### B BANQUET SERVER, T7, CMP, TSH #### [facility] [address] [place] [address] Dr. Get Whitten Creatinine [Mass/Vol] 0.96 mg/dL Normal 0.70-1.30 [facility] Comment on above: Performed By: #### B BANQUET SERVER, T7, CMP, TSH #### [facility] [address] [place] [address] Dr. Get Whitten EGFR-AF CHADIAN >60 Normal >=60 [facility] Comment on above: Performed By: #### B BANQUET SERVER, T7, CMP, TSH #### [facility] [address] [place] [address] Dr. Get Whitten EGFR-NON AF CHADIAN >60 Normal >=60 [facility] Comment on above: Performed By: #### B BANQUET SERVER, T7, CMP, TSH #### [facility] [address] [place] [address] Dr. Get Whitten Globulin (S) [Mass/Vol] 2.8 g/dL Normal [facility] Comment on above: Performed By: #### B BANQUET SERVER, T7, CMP, TSH #### [facility] [address] [place] [address] Dr. Get Whitten Glucose [Mass/Vol] 166 mg/dL Critically high 74-106 T [facility] Comment on above: Performed By: #### B BANQUET SERVER, T7, CMP, TSH #### [facility] [address] [place] [address] Dr. Get Whitten Potassium [Moles/Vol] 3.3 mmol/L Critically low 3.5-5.1 [facility] Comment on above: Performed By: #### B BANQUET SERVER, T7, CMP, TSH #### [facility] [address] [place] [address] Dr. Get Whitten Protein [Mass/Vol] 6.1 g/dL Critically low 6.4-8.2 [facility] Comment on above: Performed By: #### B BANQUET SERVER, T7, CMP, TSH #### [facility] [address] [place] [address] Dr. Get Whitten Sodium [Moles/Vol] 126 mmol/L Critically low 136-145 [facility] Comment on above: Performed By: #### B BANQUET SERVER, T7, CMP, TSH #### [facility] [address] [place] [address] Dr. Get Whitten Urea nitrogen [Mass/Vol] 8.0 mg/dL Normal 7.0-18.0 [facility] [facility] Comment on above: Performed By: #### B BANQUET SERVER, T7, CMP, TSH #### [facility] [address] [place] [address] Dr. Get Whitten Urea nitrogen/Creatinine [Mass ratio] 8.3 mg/mg Normal [facility] Comment on above: Performed By: #### B BANQUET SERVER, T7, CMP, TSH #### [facility] [address] [place] [address] Dr. Get Whitten BNPon 03-30-2022 Natriuretic peptide B (Bld) [Mass/Vol] 274.0 pg/mL Normal <=900.0 [facility] Comment on above: Performed By: #### C MP, HSTROPN, BNP #### [facility] [address] [place] [address] Dr. Get Whitten CARDIAC ANA 3-6on 2 CK [Catalytic activity/Vol] 48 U/L Normal 39-308 [facility] Comment on above: Performed By: #### B BANQUET SERVER, T7, CMP, TSH #### [facility] [address] [place] [address] Dr. Get Whitten CK.MB [Mass/Vol] 1.62 ng/mL Normal <=3.60 [facility] Comment on above: Performed By: #### B BANQUET SERVER, T7, CMP, TSH #### [facility] [address] [place] [address] Dr. Get Whitten HSTROP 15.7 pg/mL Normal 4.0-76.1 [facility] Comment on above: Result Comment: CUT- OFF POINTS HAVE BEEN ESTABLISHED BASED ON THE FOURTH UNIVERSAL DEFINITIONS OF MYOCARDIAL INFARCTION. THE UPPER REFERENCE LIMIT (URL) OF TROPONIN, DEFINED THE 99TH PERCENTILE OF cTnI DISTRIBUTION IN A REFERENCE POPULATION, HAS BEEN CONFIRMED THE DECISION THRESHOLD FOR MS DIAGNOSIS. Performed By: #### B BANQUET SERVER, T7, CMP, TSH #### [facility] [address] [place] [address] Dr. Get Whitten CBC AUTO DIFFon 03-30-2022 BASO # 0.1 103/ul Normal 0.0-0.1 [facility] Comment on above: Performed By: #### C MP #### [facility] [address] [place] [address] Dr. Get Whitten Basophils/100 WBC (Bld) 0.8 % Normal 0.2-2.0 [facility] Comment on above: Performed By: #### C MP #### [facility] [address] [place] [address] Dr. Get Whitten EO # 0.6 103/ul Normal 0.0-0.7 [facility] Comment on above: Performed By: #### C MP #### [facility] [address] [place] [address] Dr. Get Whitten Eosinophils/100 WBC (Bld) 5.2 % Normal 0.9-7.0 [facility] Comment on above: Performed By: #### C MP #### [facility] [address] [place] [address] Dr. Get Whitten Erythrocyte distribution width (RBC) [Ratio] 12.7 % Normal 11.0-15.0 [facility] Comment on above: Performed By: #### C MP #### [facility] [address] [place] [address] Dr. Get Whitten Hematocrit (Bld) [Volume fraction] 41.7 % Critically low 42.0-54.0 [facility] Comment on above: Performed By: #### C MP #### [facility] [address] [place] [address] Dr. Get Whitten Hemoglobin (Bld) [Mass/Vol] 14.9 g/dL Normal 14.0-18.0 [facility] Comment on above: Performed By: #### C MP #### [facility] [address] [place] [address] Dr. Get Whitten IG # 0.48 10e3/ul Critically high 0.00-0.03 [facility] Comment on above: Performed By: #### C MP #### [facility] [address] [place] [address] Dr. Get Whitten IG % 4.1 % Critically high 0.0-0.5 [facility] Comment on above: Performed By: #### C MP #### [facility] [address] [place] [address] Dr. Get Whitten LYMPH # 1.4 103/ul Normal 1.2-3.8 [facility] Comment on above: Performed By: #### C MP #### [facility] [address] [place] [address] Dr. Get Whitten Lymphocytes/100 WBC (Bld) 11.9 % Critically low 20.5-60.0 [facility] Comment on above: Performed By: #### C MP #### [facility] [address] [place] [address] Dr. Get Whitten MANUAL DIFF REQ NO Normal [facility] Comment on above: Performed By: #### C MP #### [facility] [address] [place] [address] Dr. Get Whitten MCH (RBC) [Entitic mass] 36.8 pg Critically high 25.9-34.0 [facility] Comment on above: Performed By: #### C MP #### [facility] [address] [place] [address] Dr. Get Whitten MCHC (RBC) [Mass/Vol] 35.7 g/dL Critically high 29.9-35.2 [facility] Comment on above: Performed By: #### C MP #### [facility] [address] [address] [address] Get Whitten MCV (RBC) [Entitic vol] 103.0 fL Critically high 80.0-94.0 [facility] Comment on above: Performed By: #### C MP #### [facility] [address] [place] [address] Dr. Get Whitten MONO # 0.5 103/ul Normal 0.3-0.8 [facility] Comment on above: Performed By: #### C MP #### [facility] [address] [place] [address] Dr. Get Whitten Monocytes/100 WBC (Bld) 4.3 % Normal 1.7-12.0 [facility] Comment on above: Performed By: #### C MP #### [facility] [address] [place] [address] Dr. Get Whitten NEUT # 8.6 103/ul Critically high 1.4-6.5 [facility] Comment on above: Performed By: #### C MP #### [facility] [address] [place] [address] Dr. Get Whitten Neutrophils/100 WBC (Bld) 73.7 % Normal 43.0-75.0 [facility] Comment on above: Performed By: #### C MP #### [facility] [address] [place] [address] Dr. Get Whitten Platelet mean volume (Bld) [Entitic vol] 9.0 fL Critically low 9.5-13.5 [facility] Comment on above: Performed By: #### C MP #### [facility] [address] [address] [address] Get Whitten PLT 244 103/ul Normal 150-450 [facility] Comment on above: Performed By: #### C MP #### [facility] [address] [place] [address] Dr. Get Whitten RBC 4.05 106/ul Critically low 4.70-6.10 [facility] Comment on above: Performed By: #### C MP #### [facility] [address] [place] [address] Dr. Get Whitten WBC 11.7 103/ul Critically high 4.0-11.0 [facility] Comment on above: Performed By: #### C MP #### [facility] [address] [place] [address] Dr. Get Whitten CRPon 03-30-2022 CRP 0.3 mg/dL Normal <=1.0 [facility] Comment on above: Performed By: #### C MP, HSTROPN, BNP #### [facility] [address] [place] [address] Dr. Get Whitten CULTURE SPUTUMon 03-30-2022 CULTURE SPUTUM Culture Observations : METHICILLIN RESISTANT STAPH AUREUS ISOLATED. PLEASE FOLLOW APPROPRIATE ISOLATION PROCEDURES. Culture Observations: Gave MRSA result to Diana Matos RN on 03/30 @ [id number] Culture Observations: Growth of mold-like organism, sending [...] >=8 R F Clindamycin >=8 R F Quinupristin/Dalfopristin <=0.25 S F Linezolid 1 S F Vancomycin <=0.5 S F Tetracycline >=16 R F Rifampicin <=0.5 S F Trimethoprim/Sulfamethoxaz ole <=10 S F Oxacillin >=4 R F Normal [facility] Comment on above: Performed By: #### B BANQUET SERVER, T7, CMP, TSH #### [facility] [id number] Get Whitten ECHO LIMITED STUDYon ECHO LIMITED STUDY Patient: REHAN TREJO Exam Date: 03/30/2022 : 1965 Gender:M Ordering : DR PEE LAKHANI . Admission #: [id number] Family : Order #: [id number] CLICK HERE TO VIEW EXAM ECHOCARDIOGRAM REPORT [...] Dominguez M.D. on 03/31/2022 at 19:42 Normal [facility] PROF 14(COMP METB)on Albumin [Mass/Vol] 3.5 g/dL Normal 3.4-5.0 [facility] Comment on above: Performed By: #### C MP HSTROPN, BNP #### [facility] [address] [place] [address] Dr. Get Whitten Albumin/Globulin [Mass ratio] 1.2 {ratio} Normal [facility] Comment on above: Performed By: #### C MP, HSTROPN, BNP #### [facility] [address] [place] [address] Dr. Get Whitten ALP [Catalytic activity/Vol] 58 U/L Normal 46-116 [facility] Comment on above: Performed By: #### C MP HSTROPN, BNP #### [facility] [address] [place] [address] Dr. Get Whitten ALT [Catalytic activity/Vol] 108 U/L Critically high 16-63 [facility] Comment on above: Performed By: #### C MP HSTROPN, BNP #### [facility] [address] [place] [address] Dr. Get Whitten Anion gap [Moles/Vol] 12.6 mmol/L Normal [facility] Comment on above: Performed By: #### C FILOMENA HSTROPN, BNP #### [facility] [address] [place] [address] Dr. Get Whitten AST [Catalytic activity/Vol] 33 U/L Normal 15-37 [facility] Comment on above: Performed By: #### C MP HSTROPN, BNP #### [facility] [address] [place] [address] Dr. Get Whitten Bilirubin [Mass/Vol] 0.6 mg/dL Normal 0.2-1.0 [facility] Comment on above: Performed By: #### C MP HSTROPN, BNP #### [facility] [address] [place] [address] Dr. Get Whitten Calcium [Mass/Vol] 8.0 mg/dL Critically low 8.5-10.1 [facility] Comment on above: Performed By: #### C FILOMENA HSTROPN, BNP #### [facility] [address] [place] [address] Dr. Get Whitten Chloride [Moles/Vol] 99 mmol/L Normal 98-107 [facility] Comment on above: Performed By: #### C MP, HSTROPN, BNP #### [facility] [address] [place] [address] Dr. Get Whitten CO2 [Moles/Vol] 22.0 mmol/L Normal 21.0-32.0 [facility] Comment on above: Performed By: #### C MP, HSTROPN, BNP #### [facility] [address] [place] [address] Dr. Get Whitten Creatinine [Mass/Vol] 1.12 mg/dL Normal 0.70-1.30 [facility] Comment on above: Performed By: #### C MP, HSTROPN, BNP #### [facility] [address] [place] [address] Dr. Get Whitten EGFR-AF CHADIAN >60 Normal >=60 [facility] Comment on above: Performed By: #### C MP, HSTROPN, BNP #### [facility] [address] [place] [address] Dr. Get Whitten EGFR-NON AF CHADIAN >60 Normal >=60 [facility] Comment on above: Performed By: #### C MP, HSTROPN, BNP #### [facility] [address] [place] [address] Dr. Get Whitten Globulin (S) [Mass/Vol] 3.0 g/dL Normal [facility] Comment on above: Performed By: #### C MP, HSTROPN, BNP #### [facility] [address] [place] [address] Dr. Get Whitten Glucose [Mass/Vol] 135 mg/dL Critically high 74-106 [facility] Comment on above: Performed By: #### C MP, HSTROPN, BNP #### [facility] [address] [place] [address] Dr. Get Whitten Potassium [Moles/Vol] 3.6 mmol/L Normal 3.5-5.1 [facility] Comment on above: Performed By: #### C MP, HSTROPN, BNP #### [facility] [address] [place] [address] Dr. Get Whitten Protein [Mass/Vol] 6.5 g/dL Normal 6.4-8.2 [facility] Comment on above: Performed By: #### C MP, HSTROPN, BNP #### [facility] [address] [place] [address] Dr. Get Whitten Sodium [Moles/Vol] 130 mmol/L Critically low 136-145 [facility] Comment on above: Performed By: #### C MP, HSTROPN, BNP #### [facility] [address] [place] [address] Dr. Get Whitten Urea nitrogen [Mass/Vol] 7.0 mg/dL Normal 7.0-18.0 [facility] Comment on above: Performed By: #### C MP, HSTROPN, BNP #### [facility] [address] [place] [address] Dr. Get Whitten Urea nitrogen/Creatinine [Mass ratio] 6.2 mg/mg Normal [facility] Comment on above: Performed By: #### C MP, HSTROPN, BNP #### [facility] [address] [place] [address] Dr. Get Whitten CARDIAC ANA 3-6on 2 CK [Catalytic activity/Vol] 51 U/L Normal 39-308 [facility] Comment on above: Performed By: #### C VDTBH #### [facility] [address] [place] [address] Dr. Get Whitten CK.MB [Mass/Vol] 1.89 ng/mL Normal <=3.60 [facility] Comment on above: Performed By: #### C VDTBH #### [facility] [address] [place] [address] Dr. Get Whitten HSTROP 14.4 pg/mL Normal 4.0-76.1 [facility] Comment on above: Result Comment: CUT- OFF POINTS HAVE BEEN ESTABLISHED BASED ON THE FOURTH UNIVERSAL DEFINITIONS OF MYOCARDIAL INFARCTION. THE UPPER REFERENCE LIMIT (URL) OF TROPONIN, DEFINED THE 99TH PERCENTILE OF cTnI DISTRIBUTION IN A REFERENCE POPULATION, HAS BEEN CONFIRMED THE DECISION THRESHOLD FOR MS DIAGNOSIS. Performed By: #### C VDTBH #### [facility] [address] [place] [address] Dr. Get Whitten CARDIAC ANA ADMITon 022 CK [Catalytic activity/Vol] 128 U/L Normal 39-308 [facility] Comment on above: Performed By: #### C MP, HSTROPN, BNP #### [facility] [address] [place] [address] Dr. Get Whitten CK.MB [Mass/Vol] 2.22 ng/mL Normal <=3.60 [facility] Comment on above: Performed By: #### C MP, HSTROPN, BNP #### [facility] [address] [place] [address] Dr. Get Whitten HSTROP 11.2 pg/mL Normal 4.0-76.1 [facility] Comment on above: Result Comment: CUT- OFF POINTS HAVE BEEN ESTABLISHED BASED ON THE FOURTH UNIVERSAL DEFINITIONS OF MYOCARDIAL INFARCTION. THE UPPER REFERENCE LIMIT (URL) OF TROPONIN, DEFINED THE 99TH PERCENTILE OF cTnI DISTRIBUTION IN A REFERENCE POPULATION, HAS BEEN CONFIRMED THE DECISION THRESHOLD FOR MS DIAGNOSIS. Performed By: #### C MP, HSTROPN, BNP #### [facility] [address] [place] [address] Dr. Get Whitten RAFA 40 ng/mL Normal 16-96 [facility] Comment on above: Performed By: #### C MP, HSTROPN, BNP #### [facility] [address] [place] [address] Dr. Get Whitten CBC AUTO DIFFon 03-29-2022 BASO # 0.1 103/ul Normal 0.0-0.1 [facility] Comment on above: Performed By: #### O SMOU #### [facility] [address] [place] [address] Dr. Get Whitten Basophils/100 WBC (Bld) 0.4 % Normal 0.2-2.0 [facility] Comment on above: Performed By: #### O SMOU #### [facility] [address] [place] [address] Dr. Get Whitten EO # 0.0 103/ul Normal 0.0-0.7 [facility] Comment on above: Performed By: #### O SMOU #### [facility] [address] [place] [address] Dr. Get Whitten Eosinophils/100 WBC (Bld) 0.1 % Critically low 0.9-7.0 [facility] Comment on above: Performed By: #### O SMOU #### [facility] [address] [place] [address] Dr. Get Whitten Erythrocyte distribution width (RBC) [Ratio] 12.8 % Normal 11.0-15.0 [facility] Comment on above: Performed By: #### O SMOU #### [facility] [address] [place] [address] Dr. Get Whitten Hematocrit (Bld) [Volume fraction] 42.1 % Normal 42.0-54.0 [facility] Comment on above: Performed By: #### O SMOU #### [facility] [address] [place] [address] Dr. Get Whitten Hemoglobin (Bld) [Mass/Vol] 15.3 g/dL Normal 14.0-18.0 [facility] Comment on above: Performed By: #### O SMOU #### [facility] [address] [place] [address] Dr. Get Whitten IG # 0.49 10e3/ul Critically high 0.00-0.03 [facility] Comment on above: Performed By: #### O SMOU #### [facility] [address] [place] [address] Dr. Get Whitten IG % 3.6 % Critically high 0.0-0.5 [facility] Comment on above: Performed By: #### O SMOU #### [facility] [address] [place] [address] Dr. Get Whitten LYMPH # 2.2 103/ul Normal 1.2-3.8 [facility] Comment on above: Performed By: #### O SMOU #### [facility] [address] [place] [address] Dr. Get Whitten Lymphocytes/100 WBC (Bld) 16.1 % Critically low 20.5-60.0 [facility] Comment on above: Performed By: #### O SMOU #### [facility] [address] [place] [address] Dr. Get Whitten MANUAL DIFF REQ NO Normal [facility] Comment on above: Performed By: #### O SMOU #### [facility] [address] [place] [address] Dr. Get Whitten MCH (RBC) [Entitic mass] 36.3 pg Critically high 25.9-34.0 [facility] Comment on above: Performed By: #### O SMOU #### [facility] [address] [place] [address] Dr. Get Whitten MCHC (RBC) [Mass/Vol] 36.3 g/dL Critically high 29.9-35.2 [facility] Comment on above: Performed By: #### O SMOU #### [facility] [address] [place] [address] Dr. Get Whitten MCV (RBC) [Entitic vol] 100.0 fL Critically high 80.0-94.0 [facility] Comment on above: Performed By: #### O SMOU #### [facility] [address] [place] [address] Dr. Get Whitten MONO # 1.1 103/ul Critically high 0.3-0.8 [facility] Comment on above: Performed By: #### O SMOU #### [facility] [address] [place] [address] Dr. Get Whitten Monocytes/100 WBC (Bld) 8.3 % Normal 1.7-12.0 [facility] Comment on above: Performed By: #### O SMOU #### [facility] [address] [place] [address] Dr. Get Whitten NEUT # 9.6 103/ul Critically high 1.4-6.5 [facility] Comment on above: Performed By: #### O SMOU #### [facility] [address] [place] [address] Dr. Get Whitten Neutrophils/100 WBC (Bld) 71.5 % Normal 43.0-75.0 [facility] Comment on above: Performed By: #### O SMOU #### [facility] [address] [place] [address] Dr. Get Whitten Platelet mean volume (Bld) [Entitic vol] 9.1 fL Critically low 9.5-13.5 [facility] Comment on above: Performed By: #### O SMOU #### [facility] [address] [place] [address] Dr. Get Whitten PLT 228 103/ul Normal 150-450 [facility] Comment on above: Performed By: #### O SMOU #### [facility] [address] [place] [address] Dr. Get Whitten RBC 4.21 106/ul Critically low 4.70-6.10 [facility] Comment on above: Performed By: #### O SMOU #### [facility] [address] [place] [address] Dr. Get Whitten WBC 13.4 103/ul Critically high 4.0-11.0 [facility] Comment on above: Performed By: #### O SMOU #### [facility] [address] [place] [address] Dr. Get Whitten [facility]16 SARS-CoV-2 (COVID-19) RNA ASHLEE+probe Ql (Unsp spec) Detected Critically abnormal NOT DETECTED [facility] Comment on above: Result Comment: This test is not yet approved or cleared by the [place] FDA. When there are no FDA-approved or cleared tests available, and other criteria are met, FDA can make tests available under an emergency access mechanism called an Emergency Use Authorization (EUA). The EUA for this test is supported by the [place] of Health and Human Service's declaration that [...] used). Performed By: #### C VDTBH #### [facility] [address] [place] [address] Dr. Get Whitten OSMOLALITYon 03-29-2022 Osmolality [Osmolality] 257 mosm/kg Critically low 275-295 [facility] Comment on above: Performed By: #### C VDTBH #### [facility] [address] [place] [address] Dr. Get Whitten OSMOLALITY URINEon 2 Osmolality, Urine 251 mOsmol/kg Normal [facility] Comment on above: Result Comment: 24 h r : 300 - 900 Random: 50 - 1400 After 12hr fluid restriction: >850 Performed By: #### O SMOU #### [facility] [address] [place] [address] Dr. Get Whitten PROF CHEM 8 (BAS METB)on Anion gap [Moles/Vol] 17.1 mmol/L Normal [facility] Comment on above: Performed By: #### C FILOMENA HSTROPN, BNP #### [facility] [address] [place] [address] Dr. Get Whitten Calcium [Mass/Vol] 8.4 mg/dL Critically low 8.5-10.1 [facility] Comment on above: Performed By: #### C MP, HSTROPN, BNP #### [facility] [address] [place] [address] Dr. Get Whitten Chloride [Moles/Vol] 98 mmol/L Normal 98-107 [facility] Comment on above: Performed By: #### C FILOMENA, HSTROPN, BNP #### [facility] [address] [place] [address] Dr. Get Whitten CO2 [Moles/Vol] 18.1 mmol/L Critically low 21.0-32.0 [facility] Comment on above: Performed By: #### C MP, HSTROPN, BNP #### [facility] [address] [address] [address] Get Whitten Creatinine [Mass/Vol] 0.98 mg/dL Normal 0.70-1.30 [facility] Comment on above: Performed By: #### C MP, HSTROPN, BNP #### [facility] [address] [place] [address] Dr. Get Whitten EGFR-AF CHADIAN >60 Normal >=60 [facility] Comment on above: Performed By: #### C MP, HSTROPN, BNP #### [facility] [address] [place] [address] Dr. Get Whitten EGFR-NON AF CHADIAN >60 Normal >=60 [facility] Comment on above: Performed By: #### C MP, HSTROPN, BNP #### [facility] [address] [place] [address] Dr. Get Whitten Glucose [Mass/Vol] 94 mg/dL Normal 74-106 [facility] Comment on above: Performed By: #### C MP, HSTROPN, BNP #### [facility] [address] [place] [address] Dr. Get Whitten Potassium [Moles/Vol] 4.2 mmol/L Normal 3.5-5.1 [facility] Comment on above: Performed By: #### C MP, HSTROPN, BNP #### [facility] [address] [place] [address] Dr. Get Whitten Sodium [Moles/Vol] 129 mmol/L Critically low 136-145 [facility] Comment on above: Performed By: #### C MP, HSTROPN, BNP #### [facility] [address] [place] [address] Dr. Get Whitten Urea nitrogen [Mass/Vol] 8.0 mg/dL Normal 7.0-18.0 [facility] Comment on above: Performed By: #### C MP, HSTROPN, BNP #### [facility] [address] [place] [address] Dr. Get Whitten Urea nitrogen/Creatinine [Mass ratio] 8.2 mg/mg Normal [facility] Comment on above: Performed By: #### C MP, HSTROPN, BNP #### [facility] [address] [address] [address] Get Whitten XR CHEST 1 Von [...] GARETH ROMERO Date: 2022-03-29 18:30 Normal [facility] BNPon 03-28-2022 Natriuretic peptide B (Bld) [Mass/Vol] 401.0 pg/mL Normal <=900.0 [facility] Comment on above: Performed By: #### B BANQUET SERVER, T7, CMP, TSH #### [facility] [address] [place] [address] Dr. Get Whitten CBC W MANUAL DIFFon 03-28-20 22 ATYPICAL LYMPH # Normal [facility] Comment on above: Performed By: #### B BANQUET SERVER, T7, CMP, TSH #### [facility] [address] [address] [address] Get Whitten ATYPICAL LYMPH % Normal [facility] Comment on above: Performed By: #### B BANQUET SERVER, T7, CMP, TSH #### [facility] [address] [address] [address] Get Whitten BAND # 0.3 103/ul Normal 0.0-0.3 [facility] Comment on above: Performed By: #### B BANQUET SERVER, T7, CMP, TSH #### [facility] [address] [address] [address] Get Whitten BAND % 2 % Normal 0-5 [facility] Comment on above: Performed By: #### B BANQUET SERVER, T7, CMP, TSH #### [facility] [address] [address] [address] Get Whitten BASOM # 0.00 103/ul Normal 0.00-0.10 [facility] Comment on above: Performed By: #### B BANQUET SERVER, T7, CMP, TSH #### [facility] [address] [place] [address] Dr. Get Whitten BASOM % 0.0 % Critically low 0.2-2.0 [facility] Comment on above: Performed By: #### B BANQUET SERVER, T7, CMP, TSH #### [facility] [address] [place] [address] Dr. Get Whitten BLAST # Normal [facility] Comment on above: Performed By: #### B BANQUET SERVER, T7, CMP, TSH #### [facility] [address] [place] [address] Dr. Get Whitten BLAST % Normal [facility] Comment on above: Performed By: #### B BANQUET SERVER, T7, CMP, TSH #### [facility] [address] [place] [address] Dr. Get Whitten CORRECTED WBC Normal 4.0-11.0 [facility] Comment on above: Performed By: #### B BANQUET SERVER, T7, CMP, TSH #### [facility] [address] [place] [address] Dr. Get Whitten EOS # 0.00 103/ul Normal 0.00-0.70 [facility] Comment on above: Performed By: #### B BANQUET SERVER, T7, CMP, TSH #### [facility] [address] [place] [address] Dr. Get Whitten EOS% 0.0 % Critically low 0.9-7.0 [facility] Comment on above: Performed By: #### B BANQUET SERVER, T7, CMP, TSH #### [facility] [address] [place] [address] Dr. Get Whitten HCT 36.3 % Critically low 42.0-54.0 [facility] Comment on above: Performed By: #### B BANQUET SERVER, T7, CMP, TSH #### [facility] [address] [place] [address] Dr. Get Whitten HGB 12.9 g/dl Critically low 14.0-18.0 [facility] Comment on above: Performed By: #### B BANQUET SERVER, T7, CMP, TSH #### [facility] [address] [address] [address] Get Whitten HYPERSEG NEUT SLIGHT Normal [facility] Comment on above: Performed By: #### B BANQUET SERVER, T7, CMP, TSH #### [facility] [address] [address] [address] Get Whitten LYMPHM # 0.89 103/ul Critically low 1.20-3.80 [facility] Comment on above: Performed By: #### B BANQUET SERVER, T7, CMP, TSH #### [facility] [address] [place] [address] Dr. Get Whitten LYMPHM% 7.0 % Critically low 20.5-60.0 [facility] Comment on above: Performed By: #### B BANQUET SERVER, T7, CMP, TSH #### [facility] [address] [place] [address] Dr. Get Whitten MCH 36.5 pg Critically high 25.9-34.0 [facility] Comment on above: Performed By: #### B BANQUET SERVER, T7, CMP, TSH #### [facility] [address] [place] [address] Dr. Get Whitten MCHC 35.5 g/dl Critically high 29.9-35.2 [facility] Comment on above: Performed By: #### B BANQUET SERVER, T7, CMP, TSH #### [facility] [address] [place] [address] Dr. Get Whitten MCV 102.8 fL Critically high 80.0-94.0 [facility] Comment on above: Performed By: #### B BANQUET SERVER, T7, CMP, TSH #### [facility] [address] [place] [address] Dr. Get Whitten METAMYELOCYTE # Normal [facility] Comment on above: Performed By: #### B BANQUET SERVER, T7, CMP, TSH #### [facility] [address] [place] [address] Dr. Get Whitten METAMYELOCYTE % Normal [facility] Comment on above: Performed By: #### B BANQUET SERVER, T7, CMP, TSH #### [facility] [address] [place] [address] Dr. Gte Whitten MONOM# 1.02 103/ul Critically high 0.30-0.80 [facility] Comment on above: Performed By: #### B BANQUET SERVER, T7, CMP, TSH #### [facility] [address] [place] [address] Dr. Get Whitten MONOM% 8.0 % Normal 1.7-12.0 [facility] Comment on above: Performed By: #### B BANQUET SERVER, T7, CMP, TSH #### [facility] [address] [place] [address] Dr. Get Whitten MPV 9.1 fL Critically low 9.5-13.5 [facility] Comment on above: Performed By: #### B BANQUET SERVER, T7, CMP, TSH #### [facility] [address] [place] [address] Dr. Get Whitten MYELOCYTE # Normal [facility] Comment on above: Performed By: #### B BANQUET SERVER, T7, CMP, TSH #### [facility] [address] [place] [address] Dr. Get Whitten MYELOCYTE % Normal [facility] Comment on above: Performed By: #### B BANQUET SERVER, T7, CMP, TSH #### [facility] [address] [place] [address] Dr. Get Whitten NRBC Normal [facility] Comment on above: Performed By: #### B BANQUET SERVER, T7, CMP, TSH #### [facility] [address] [place] [address] Dr. Get Whitten PLT 181 103/ul Normal 150-450 [facility] Comment on above: Performed By: #### B BANQUET SERVER, T7, CMP, TSH #### [facility] [address] [place] [address] Dr. Get Whitten RBC 3.53 106/ul Critically low 4.70-6.10 [facility] Comment on above: Performed By: #### B BANQUET SERVER, T7, CMP, TSH #### [facility] [address] [place] [address] Dr. Get Whitten RDW 12.7 % Normal 11.0-15.0 [facility] Comment on above: Performed By: #### B BANQUET SERVER, T7, CMP, TSH #### [facility] [address] [place] [address] Dr. Get Whitten SEG # 10.54 103/ul Critically high 1.40-6.50 [facility] Comment on above: Performed By: #### B BANQUET SERVER, T7, CMP, TSH #### [facility] [address] [place] [address] Dr. Get Whitten SEG % 83.0 % Critically high 43.0-75.0 [facility] Comment on above: Performed By: #### B BANQUET SERVER, T7, CMP, TSH #### [facility] [address] [place] [address] Dr. Get Whitten WBC 12.7 103/ul Critically high 4.0-11.0 [facility] Comment on above: Performed By: #### B BANQUET SERVER, T7, CMP, TSH #### [facility] [address] [place] [address] Dr. Get Whitten PROF 14(COMP METB)on 022 Albumin [Mass/Vol] 3.0 g/dL Critically low 3.4-5.0 [facility] Comment on above: Performed By: #### B BANQUET SERVER, T7, CMP, TSH #### [facility] [address] [place] [address] Dr. Get Whitten Albumin/Globulin [Mass ratio] 1.2 {ratio} Normal [facility] Comment on above: Performed By: #### B BANQUET SERVER, T7, CMP, TSH #### [facility] [address] [place] [address] Dr. Get Whitten ALP [Catalytic activity/Vol] 39 U/L Critically low 46-116 [facility] Comment on above: Performed By: #### B BANQUET SERVER, T7, CMP, TSH #### [facility] [address] [place] [address] Dr. Get Whitten ALT [Catalytic activity/Vol] 94 U/L Critically high 16-63 [facility] Comment on above: Performed By: #### B BANQUET SERVER, T7, CMP, TSH #### [facility] [address] [place] [address] Dr. Get Whitten Anion gap [Moles/Vol] 11.4 mmol/L Normal [facility] Comment on above: Performed By: #### B BANQUET SERVER, T7, CMP, TSH #### [facility] [address] [place] [address] Dr. Get Whitten AST [Catalytic activity/Vol] 37 U/L Normal 15-37 [facility] Comment on above: Performed By: #### B BANQUET SERVER, T7, CMP, TSH #### [facility] [address] [place] [address] Dr. Get Whitten Bilirubin [Mass/Vol] 0.4 mg/dL Normal 0.2-1.0 [facility] Comment on above: Performed By: #### B BANQUET SERVER, T7, CMP, TSH #### [facility] [address] [place] [address] Dr. Get Whitten Calcium [Mass/Vol] 7.9 mg/dL Critically low 8.5-10.1 [facility] Comment on above: Performed By: #### B BANQUET SERVER, T7, CMP, TSH #### [facility] [address] [place] [address] Dr. Get Whitten Chloride [Moles/Vol] 102 mmol/L Normal 98-107 [facility] Comment on above: Performed By: #### B BANQUET SERVER, T7, CMP, TSH #### [facility] [address] [place] [address] Dr. Get Whitten CO2 [Moles/Vol] 21.0 mmol/L Normal 21.0-32.0 [facility] Comment on above: Performed By: #### B BANQUET SERVER, T7, CMP, TSH #### [facility] [address] [place] [address] Dr. Get Whitten Creatinine [Mass/Vol] 1.07 mg/dL Normal 0.70-1.30 [facility] Comment on above: Performed By: #### B BANQUET SERVER, T7, CMP, TSH #### [facility] [address] [address] [address] Get Whitten EGFR-AF CHADIAN >86 Normal >=60 [facility] Comment on above: Performed By: #### B BANQUET SERVER, T7, CMP, TSH #### [facility] [address] [place] [address] Dr. Get Whitten EGFR-NON AF CHADIAN >60 Normal >=60 [facility] Comment on above: Performed By: #### B BANQUET SERVER, T7, CMP, TSH #### [facility] [address] [place] [address] Dr. Get Whitten Globulin (S) [Mass/Vol] 2.6 g/dL Normal [facility] Comment on above: Performed By: #### B BANQUET SERVER, T7, CMP, TSH #### [facility] [address] [place] [address] Dr. Get Whitten Glucose [Mass/Vol] 132 mg/dL Critically high 74-106 [facility] Comment on above: Performed By: #### B BANQUET SERVER, T7, CMP, TSH #### [facility] [address] [place] [address] Dr. Get Whitten Potassium [Moles/Vol] 3.4 mmol/L Critically low 3.5-5.1 [facility] Comment on above: Performed By: #### B BANQUET SERVER, T7, CMP, TSH #### [facility] [address] [place] [address] Dr. Get Whitten Protein [Mass/Vol] 5.6 g/dL Critically low 6.4-8.2 [facility] Comment on above: Performed By: #### B BANQUET SERVER, T7, CMP, TSH #### [facility] [address] [place] [address] Dr. Get Whitten Sodium [Moles/Vol] 131 mmol/L Critically low 136-145 [facility] Comment on above: Performed By: #### B BANQUET SERVER, T7, CMP, TSH #### [facility] [address] [place] [address] Dr. Get Whitten Urea nitrogen [Mass/Vol] 16.0 mg/dL Normal 7.0-18.0 [facility] Comment on above: Performed By: #### B BANQUET SERVER, T7, CMP, TSH #### [facility] [address] [place] [address] Dr. Get Whitten Urea nitrogen/Creatinine [Mass ratio] 15.0 mg/mg Normal [facility] Comment on above: Performed By: #### B BANQUET SERVER, T7, CMP, TSH #### [facility] [address] [place] [address] Dr. Get Whitten T3, TOTAL (TRIIODOTHYRONINE) on 03-28-2022 T3, TOTAL <20 Critically low 71-180 [facility] Comment on above: Performed By: #### C MP, HSTROPN, BNP #### [facility] [address] [place] [address] Dr. Get Whitten T4 LABCORPon 03-28-2022 T4 [Mass/Vol] 0.7 ug/dL Invalid Interpretation Code 4.5-12.0 [facility] Comment on above: Performed By: #### C VDTBH #### [facility] [address] [place] [address] Dr. Get Whitten BNPon 03-27-2022 Natriuretic peptide B (Bld) [Mass/Vol] 340.0 pg/mL Normal <=900.0 [facility] Comment on above: Performed By: #### B BANQUET SERVER, T7, CMP, TSH #### [facility] [address] [place] [address] Dr. Get Whitten CBC AUTO DIFFon 03-27-2022 BASO # 0.0 103/ul Normal 0.0-0.1 [facility] Comment on above: Performed By: #### C MP, HSTROPN, BNP #### [facility] [address] [place] [address] Dr. Get Whitten Basophils/100 WBC (Bld) 0.1 % Critically low 0.2-2.0 [facility] Comment on above: Performed By: #### C MP, HSTROPN, BNP #### [facility] [address] [place] [address] Dr. Get Whitten EO # 0.0 103/ul Normal 0.0-0.7 [facility] Comment on above: Performed By: #### C MP, HSTROPN, BNP #### [facility] [address] [place] [address] Dr. Get Whitten Eosinophils/100 WBC (Bld) 0.1 % Critically low 0.9-7.0 [facility] Comment on above: Performed By: #### C MP, HSTROPN, BNP #### [facility] [address] [place] [address] Dr. Get Whitten Erythrocyte distribution width (RBC) [Ratio] 12.7 % Normal 11.0-15.0 [facility] Comment on above: Performed By: #### C MP, HSTROPN, BNP #### [facility] [address] [place] [address] Dr. Get Whitten Hematocrit (Bld) [Volume fraction] 38.7 % Critically low 42.0-54.0 [facility] Comment on above: Performed By: #### C MP, HSTROPN, BNP #### [facility] [address] [place] [address] Dr. Get Whitten Hemoglobin (Bld) [Mass/Vol] 13.6 g/dL Critically low 14.0-18.0 [facility] Comment on above: Performed By: #### C MP, HSTROPN, BNP #### [facility] [address] [place] [address] Dr. Get Whitten IG # 1.95 10e3/ul Critically high 0.00-0.03 [facility] Comment on above: Performed By: #### C MP, HSTROPN, BNP #### [facility] [address] [place] [address] Dr. Get Whitten IG % 16.0 % Critically high 0.0-0.5 [facility] Comment on above: Performed By: #### C MP, HSTROPN, BNP #### [facility] [address] [place] [address] Dr. Get Whitten LYMPH # 1.7 103/ul Normal 1.2-3.8 [facility] Comment on above: Performed By: #### C MP, HSTROPN, BNP #### [facility] [address] [place] [address] Dr. Get Whitten Lymphocytes/100 WBC (Bld) 13.8 % Critically low 20.5-60.0 [facility] Comment on above: Performed By: #### C MP, HSTROPN, BNP #### [facility] [address] [place] [address] Dr. Get Whitten MANUAL DIFF REQ NO Normal [facility] Comment on above: Performed By: #### C MP, HSTROPN, BNP #### [facility] [address] [place] [address] Dr. Get Whitten MCH (RBC) [Entitic mass] 36.2 pg Critically high 25.9-34.0 [facility] Comment on above: Performed By: #### C MP, HSTROPN, BNP #### [facility] [address] [place] [address] Dr. Get Whitten MCHC (RBC) [Mass/Vol] 35.1 g/dL Normal 29.9-35.2 [facility] Comment on above: Performed By: #### C MP, HSTROPN, BNP #### [facility] [address] [place] [address] Dr. Get Whitten MCV (RBC) [Entitic vol] 102.9 fL Critically high 80.0-94.0 [facility] Comment on above: Performed By: #### C MP, HSTROPN, BNP #### [facility] [address] [place] [address] Dr. Get Whitten MONO # 0.4 103/ul Normal 0.3-0.8 [facility] Comment on above: Performed By: #### C MP, HSTROPN, BNP #### [facility] [address] [place] [address] Dr. Get Whitten Monocytes/100 WBC (Bld) 3.3 % Normal 1.7-12.0 [facility] Comment on above: Performed By: #### C MP, HSTROPN, BNP #### [facility] [address] [place] [address] Dr. Get Whitten NEUT # 8.2 103/ul Critically high 1.4-6.5 [facility] Comment on above: Performed By: #### C MP, HSTROPN, BNP #### [facility] [address] [place] [address] Dr. Get Whitten Neutrophils/100 WBC (Bld) 66.7 % Normal 43.0-75.0 [facility] Comment on above: Performed By: #### C MP, HSTROPN, BNP #### [facility] [address] [place] [address] Dr. Get Whitten Platelet mean volume (Bld) [Entitic vol] 9.2 fL Critically low 9.5-13.5 [facility] Comment on above: Performed By: #### C MP, HSTROPN, BNP #### [facility] [address] [place] [address] Dr. Get Whitten PLT 167 103/ul Normal 150-450 [facility] Comment on above: Performed By: #### C MP, HSTROPN, BNP #### [facility] [address] [place] [address] Dr. Get Whitten RBC 3.76 106/ul Critically low 4.70-6.10 [facility] Comment on above: Performed By: #### C MP, HSTROPN, BNP #### [facility] [address] [place] [address] Dr. Get Whitten WBC 12.2 103/ul Critically high 4.0-11.0 [facility] Comment on above: Performed By: #### C MP, HSTROPN, BNP #### [facility] [address] [place] [address] Dr. Get Whitten PROF 14(COMP METB)on 022 Albumin [Mass/Vol] 3.1 g/dL Critically low 3.4-5.0 [facility] Comment on above: Performed By: #### B BANQUET SERVER, T7, CMP, TSH #### [facility] [address] [address] [address] Get Whitten Albumin/Globulin [Mass ratio] 1.1 {ratio} Normal [facility] Comment on above: Performed By: #### B BANQUET SERVER, T7, CMP, TSH #### [facility] [address] [place] [address] Dr. Get Whitten ALP [Catalytic activity/Vol] 44 U/L Critically low 46-116 [facility] Comment on above: Performed By: #### B BANQUET SERVER, T7, CMP, TSH #### [facility] [address] [place] [address] Dr. Get Whitten ALT [Catalytic activity/Vol] 87 U/L Critically high 16-63 [facility] Comment on above: Performed By: #### B BANQUET SERVER, T7, CMP, TSH #### [facility] [address] [place] [address] Dr. Get Whitten Anion gap [Moles/Vol] 12.6 mmol/L Normal [facility] Comment on above: Performed By: #### B BANQUET SERVER, T7, CMP, TSH #### [facility] [address] [place] [address] Dr. Get Whitten AST [Catalytic activity/Vol] 38 U/L Critically high 15-37 [facility] Comment on above: Performed By: #### B BANQUET SERVER, T7, CMP, TSH #### [facility] [address] [place] [address] Dr. Get Whitten Bilirubin [Mass/Vol] 0.4 mg/dL Normal 0.2-1.0 [facility] Comment on above: Performed By: #### B BANQUET SERVER, T7, CMP, TSH #### [facility] [address] [place] [address] Dr. Get Whitten Calcium [Mass/Vol] 7.7 mg/dL Critically low 8.5-10.1 [facility] Comment on above: Performed By: #### B BANQUET SERVER, T7, CMP, TSH #### [facility] [address] [place] [address] Dr. Get Whitten Chloride [Moles/Vol] 97 mmol/L Critically low 98-107 [facility] Comment on above: Performed By: #### B BANQUET SERVER, T7, CMP, TSH #### [facility] [address] [address] [address] Get Whitten CO2 [Moles/Vol] 22.1 mmol/L Normal 21.0-32.0 [facility] Comment on above: Performed By: #### B BANQUET SERVER, T7, CMP, TSH #### [facility] [address] [place] [address] Dr. Get Whitten Creatinine [Mass/Vol] 1.17 mg/dL Normal 0.70-1.30 [facility] Comment on above: Performed By: #### B BANQUET SERVER, T7, CMP, TSH #### [facility] [address] [place] [address] Dr. Get Whitten EGFR-AF CHADIAN >60 Normal >=60 [facility] Comment on above: Performed By: #### B BANQUET SERVER, T7, CMP, TSH #### [facility] [address] [place] [address] Dr. Get Whitten EGFR-NON AF CHADIAN >60 Normal >=60 [facility] Comment on above: Performed By: #### B BANQUET SERVER, T7, CMP, TSH #### [facility] [address] [place] [address] Dr. Get Whitten Globulin (S) [Mass/Vol] 2.7 g/dL Normal [facility] Comment on above: Performed By: #### B BANQUET SERVER, T7, CMP, TSH #### [facility] [address] [place] [address] Dr. Get Whitten Glucose [Mass/Vol] 165 mg/dL Critically high 74-106 T [facility] Comment on above: Performed By: #### B BANQUET SERVER, T7, CMP, TSH #### [facility] [address] [place] [address] Dr. Get Whitten Potassium [Moles/Vol] 3.7 mmol/L Normal 3.5-5.1 [facility] Comment on above: Performed By: #### B BANQUET SERVER, T7, CMP, TSH #### [facility] [address] [place] [address] Dr. Get Whitten Protein [Mass/Vol] 5.8 g/dL Critically low 6.4-8.2 [facility] Comment on above: Performed By: #### B BANQUET SERVER, T7, CMP, TSH #### [facility] [address] [place] [address] Dr. Get Whitten Sodium [Moles/Vol] 128 mmol/L Critically low 136-145 [facility] Comment on above: Performed By: #### B BANQUET SERVER, T7, CMP, TSH #### [facility] [address] [place] [address] Dr. Get Whitten Urea nitrogen [Mass/Vol] 17.0 mg/dL Normal 7.0-18.0 [facility] Comment on above: Performed By: #### B BANQUET SERVER, T7, CMP, TSH #### [facility] [address] [place] [address] Dr. Get Whitten Urea nitrogen/Creatinine [Mass ratio] 14.5 mg/mg Normal [facility] Comment on above: Performed By: #### B BANQUET SERVER, T7, CMP, TSH #### [facility] [address] [place] [address] Dr. Get Whittne SODIUM RANDOM URINEon 2021 Sodium (U) [Moles/Vol] 6 mmol/L Critically low 30-90 [facility] Comment on above: Performed By: #### B BANQUET SERVER, T7, CMP, TSH #### [facility] [address] [place] [address] Dr. Get Whitten BNPon 03-26-2022 Natriuretic peptide B (Bld) [Mass/Vol] 472.0 pg/mL Normal <=900.0 [facility] Comment on above: Performed By: #### C MP, HSTROPN, BNP #### [facility] [address] [place] [address] Dr. Get Whitten CARDIAC ANA 3-6on 2 CK [Catalytic activity/Vol] 53 U/L Normal 39-308 [facility] Comment on above: Performed By: #### C VDTBH #### [facility] [address] [place] [address] Dr. Get Whitten CK.MB [Mass/Vol] 1.61 ng/mL Normal <=3.60 [facility] Comment on above: Performed By: #### C VDTBH #### [facility] [address] [place] [address] Dr. Get Whitten HSTROP 20.2 pg/mL Normal 4.0-76.1 [facility] Comment on above: Result Comment: CUT- OFF POINTS HAVE BEEN ESTABLISHED BASED ON THE FOURTH UNIVERSAL DEFINITIONS OF MYOCARDIAL INFARCTION. THE UPPER REFERENCE LIMIT (URL) OF TROPONIN, DEFINED THE 99TH PERCENTILE OF cTnI DISTRIBUTION IN A REFERENCE POPULATION, HAS BEEN CONFIRMED THE DECISION THRESHOLD FOR MS DIAGNOSIS. Performed By: #### C VDTBH #### [facility] [address] [place] [address] Dr. Get Whitten CK [Catalytic activity/Vol] 40 U/L Normal 39-308 [facility] Comment on above: Performed By: #### B BANQUET SERVER, T7, CMP, TSH #### [facility] [address] [place] [address] Dr. Get Whitten CK.MB [Mass/Vol] 1.53 ng/mL Normal <=3.60 [facility] Comment on above: Performed By: #### B BANQUET SERVER, T7, CMP, TSH #### [facility] [address] [place] [address] Dr. Get Whitten HSTROP 23.6 pg/mL Normal 4.0-76.1 [facility] Comment on above: Result Comment: CUT- OFF POINTS HAVE BEEN ESTABLISHED BASED ON THE FOURTH UNIVERSAL DEFINITIONS OF MYOCARDIAL INFARCTION. THE UPPER REFERENCE LIMIT (URL) OF TROPONIN, DEFINED THE 99TH PERCENTILE OF cTnI DISTRIBUTION IN A REFERENCE POPULATION, HAS BEEN CONFIRMED THE DECISION THRESHOLD FOR MS DIAGNOSIS. Performed By: #### B BANQUET SERVER, T7, CMP, TSH #### [facility] [address] [place] [address] Dr. Get Whitten CBC W MANUAL DIFFon 03-26-20 22 ATYPICAL LYMPH # Normal [facility] Comment on above: Performed By: #### C MP, HSTROPN, BNP #### [facility] [address] [place] [address] Dr. Get Whitten ATYPICAL LYMPH % Normal [facility] Comment on above: Performed By: #### C MP, HSTROPN, BNP #### [facility] [address] [address] [address] Get Whitten BAND # 0.5 103/ul Critically high 0.0-0.3 [facility] Comment on above: Performed By: #### C MP, HSTROPN, BNP #### [facility] [address] [place] [address] Dr. Get Whitten BAND % 4 % Normal 0-5 [facility] Comment on above: Performed By: #### C MP, HSTROPN, BNP #### [facility] [address] [place] [address] Dr. Get Whitten BASOM # 0.00 103/ul Normal 0.00-0.10 [facility] Comment on above: Performed By: #### C MP, HSTROPN, BNP #### [facility] [address] [place] [address] Dr. Get Whitten BASOM % 0.0 % Critically low 0.2-2.0 [facility] Comment on above: Performed By: #### C MP, HSTROPN, BNP #### [facility] [address] [place] [address] Dr. Get Whitten BLAST # Normal [facility] Comment on above: Performed By: #### C MP, HSTROPN, BNP #### [facility] [address] [place] [address] Dr. Get Whitten BLAST % Normal [facility] Comment on above: Performed By: #### C MP, HSTROPN, BNP #### [facility] [address] [place] [address] Dr. Get Whitten CORRECTED WBC Normal 4.0-11.0 [facility] Comment on above: Performed By: #### C MP, HSTROPN, BNP #### [facility] [address] [address] [address] Get Whitten EOS # 0.00 103/ul Normal 0.00-0.70 [facility] Comment on above: Performed By: #### C MP, HSTROPN, BNP #### [facility] [address] [place] [address] Dr. Get Whitten EOS% 0.0 % Critically low 0.9-7.0 [facility] Comment on above: Performed By: #### C MP, HSTROPN, BNP #### [facility] [address] [place] [address] Dr. Get Whitten HCT 44.0 % Normal 42.0-54.0 [facility] Comment on above: Performed By: #### C MP, HSTROPN, BNP #### [facility] [address] [place] [address] Dr. Get Whitten HGB 15.8 g/dl Normal 14.0-18.0 [facility] Comment on above: Performed By: #### C MP, HSTROPN, BNP #### [facility] [address] [place] [address] Dr. Get Whitten HYPERSEG NEUT 2+ Normal [facility] Comment on above: Performed By: #### C MP, HSTROPN, BNP #### [facility] [address] [place] [address] Dr. Get Whitten LYMPHM # 1.56 103/ul Normal 1.20-3.80 [facility] Comment on above: Performed By: #### C MP, HSTROPN, BNP #### [facility] [address] [place] [address] Dr. Get Whitten LYMPHM% 13.0 % Critically low 20.5-60.0 [facility] Comment on above: Performed By: #### C MP, HSTROPN, BNP #### [facility] [address] [place] [address] Dr. Get Whitten MCH 36.2 pg Critically high 25.9-34.0 [facility] Comment on above: Performed By: #### C MP, HSTROPN, BNP #### [facility] [address] [address] [address] Get Whitten MCHC 35.9 g/dl Critically high 29.9-35.2 [facility] Comment on above: Performed By: #### C MP, HSTROPN, BNP #### [facility] [address] [address] [address] Get Whitten MCV 100.7 fL Critically high 80.0-94.0 [facility] Comment on above: Performed By: #### C MP, HSTROPN, BNP #### [facility] [address] [address] [address] Get Whitten METAMYELOCYTE # Normal [facility] Comment on above: Performed By: #### C MP, HSTROPN, BNP #### [facility] [address] [address] [address] Get Whitten METAMYELOCYTE % Normal [facility] Comment on above: Performed By: #### C MP, HSTROPN, BNP #### [facility] [address] [address] [address] Get Whitten MONOM# 1.08 103/ul Critically high 0.30-0.80 [facility] Comment on above: Performed By: #### C MP, HSTROPN, BNP #### [facility] [address] [address] [address] Get Whitten MONOM% 9.0 % Normal 1.7-12.0 [facility] Comment on above: Performed By: #### C MP, HSTROPN, BNP #### [facility] [address] [address] [address] Get Whitten MPV 10.3 fL Normal 9.5-13.5 [facility] Comment on above: Performed By: #### C MP, HSTROPN, BNP #### [facility] [address] [address] [address] Get Whitten MYELOCYTE # Normal [facility] Comment on above: Performed By: #### C MP, HSTROPN, BNP #### [facility] [address] [place] [address] Dr. Get Whitten MYELOCYTE % Normal [facility] Comment on above: Performed By: #### C MP, HSTROPN, BNP #### [facility] [address] [place] [address] Dr. Get Whitten NRBC Normal [facility] Comment on above: Performed By: #### C MP, HSTROPN, BNP #### [facility] [address] [address] [address] Get Whitten PLT 111 103/ul Critically low 150-450 [facility] Comment on above: Performed By: #### C MP, HSTROPN, BNP #### [facility] [address] [place] [address] Dr. Get Whitten RBC 4.37 106/ul Critically low 4.70-6.10 [facility] Comment on above: Performed By: #### C MP, HSTROPN, BNP #### [facility] [address] [place] [address] Dr. Get Whitten RDW 12.4 % Normal 11.0-15.0 [facility] Comment on above: Performed By: #### C MP, HSTROPN, BNP #### [facility] [address] [place] [address] Dr. Get Whitten SEG # 8.88 103/ul Critically high 1.40-6.50 [facility] Comment on above: Performed By: #### C MP, HSTROPN, BNP #### [facility] [address] [place] [address] Dr. Get Whitten SEG % 74.0 % Normal 43.0-75.0 [facility] Comment on above: Performed By: #### C MP, HSTROPN, BNP #### [facility] [address] [place] [address] Dr. Get Whitten WBC 12.0 103/ul Critically high 4.0-11.0 [facility] Comment on above: Performed By: #### C MP, HSTROPN, BNP #### [facility] [address] [address] [address] Get Whitten CRPon 03-26-2022 CRP [Mass/Vol] mg/L Normal <=1.0 [facility] Comment on above: Performed By: #### C MP HSTROPN, BNP #### [facility] [address] [place] [address] Dr. Get Whitten Covid-19 PCR (CVDTB)on 03-16 SARS-CoV-2 (COVID-19) RNA ASHLEE+probe Ql (Unsp spec) Detected Critically abnormal NOT DETECTED [facility] Comment on above: Result Comment: This test is not yet approved or cleared by the [place] FDA. When there are no FDA-approved or cleared tests available, and other criteria are met, FDA can make tests available under an emergency access mechanism called an Emergency Use Authorization (EUA). The EUA for this test is supported by the Behavior Interventionist of Health and Human Service's declaration that [...] used). Performed By: #### C VDTBH #### [facility] [address] [place] [address] Dr. Get Whitten LACTATE/LACTIC ACIDon 2021 Lactate [Moles/Vol] 0.4 mmol/L Normal 0.4-1.9 [facility] Comment on above: Performed By: #### C MP, HSTROPN, BNP #### [facility] [address] [place] [address] Dr. Get Whitten NAon 03-26-2022 Sodium [Moles/Vol] 126 mmol/L Critically low 136-145 [facility] Comment on above: Performed By: #### B BANQUET SERVER, T7, CMP, TSH #### [facility] [address] [place] [address] Dr. Get Whitten PROF 14(COMP METB)on 022 Albumin [Mass/Vol] 3.6 g/dL Normal 3.4-5.0 [facility] Comment on above: Performed By: #### C MP HSTROPN, BNP #### [facility] [address] [place] [address] Dr. Get Whitten Albumin/Globulin [Mass ratio] 1.0 {ratio} Normal [facility] Comment on above: Performed By: #### C MP, HSTROPN, BNP #### [facility] [address] [address] [address] Get Whitten ALP [Catalytic activity/Vol] 49 U/L Normal 46-116 [facility] Comment on above: Performed By: #### C MP HSTROPN, BNP #### [facility] [address] [place] [address] Dr. Get Whitten ALT [Catalytic activity/Vol] 80 U/L Critically high 16-63 [facility] Comment on above: Performed By: #### C MP, HSTROPN, BNP #### [facility] [address] [place] [address] Dr. Get Whitten Anion gap [Moles/Vol] 16.2 mmol/L Normal [facility] Comment on above: Performed By: #### C MP HSTROPN, BNP #### [facility] [address] [place] [address] Dr. Get Whitten AST [Catalytic activity/Vol] 42 U/L Critically high 15-37 [facility] Comment on above: Performed By: #### C MP, HSTROPN, BNP #### [facility] [address] [place] [address] Dr. Get Whitten Bilirubin [Mass/Vol] 0.7 mg/dL Normal 0.2-1.0 [facility] Comment on above: Performed By: #### C MP, HSTROPN, BNP #### [facility] [address] [place] [address] Dr. Get Whitten Calcium [Mass/Vol] 8.4 mg/dL Critically low 8.5-10.1 [facility] Comment on above: Performed By: #### C FILOMENA HSTROPN, BNP #### [facility] [address] [place] [address] Dr. Get Whitten Chloride [Moles/Vol] 91 mmol/L Critically low 98-107 [facility] Comment on above: Performed By: #### C MP, HSTROPN, BNP #### [facility] [address] [place] [address] Dr. Get Whitten CO2 [Moles/Vol] 19.8 mmol/L Critically low 21.0-32.0 [facility] Comment on above: Performed By: #### C MP, HSTROPN, BNP #### [facility] [address] [place] [address] Dr. Get Whitten Creatinine [Mass/Vol] 1.11 mg/dL Normal 0.70-1.30 [facility] Comment on above: Performed By: #### C MP, HSTROPN, BNP #### [facility] [address] [place] [address] Dr. Get Whitten EGFR-AF CHADIAN >60 Normal >=60 [facility] Comment on above: Performed By: #### C MP, HSTROPN, BNP #### [facility] [address] [place] [address] Dr. Get Whitten EGFR-NON AF CHADIAN >60 Normal >=60 [facility] Comment on above: Performed By: #### C MP, HSTROPN, BNP #### [facility] [address] [place] [address] Dr. Get Whitten Globulin (S) [Mass/Vol] 3.6 g/dL Normal [facility] Comment on above: Performed By: #### C MP, HSTROPN, BNP #### [facility] [address] [place] [address] Dr. Get Whitten Glucose [Mass/Vol] 109 mg/dL Critically high 74-106 [facility] Comment on above: Performed By: #### C MP, HSTROPN, BNP #### [facility] [address] [place] [address] Dr. Get Whitten Potassium [Moles/Vol] 4.0 mmol/L Normal 3.5-5.1 [facility] Comment on above: Performed By: #### C FILOMENA HSTROPN, BNP #### [facility] [address] [place] [address] Dr. Get Whitten Protein [Mass/Vol] 7.2 g/dL Normal 6.4-8.2 [facility] Comment on above: Performed By: #### C FILOMENA HSTROPN, BNP #### [facility] [address] [place] [address] Dr. Get Whitten Sodium [Moles/Vol] 123 mmol/L Critically low 136-145 [facility] Comment on above: Performed By: #### C FILOMENA HSTROPN, BNP #### [facility] [address] [place] [address] Dr. Get Whitten Urea nitrogen [Mass/Vol] 15.0 mg/dL Normal 7.0-18.0 [facility] Comment on above: Performed By: #### C FILOMENA HSTROPN, BNP #### [facility] [address] [place] [address] Dr. Get Whitten Urea nitrogen/Creatinine [Mass ratio] 13.5 mg/mg Normal [facility] Comment on above: Performed By: #### C FILOMENA HSTROPN, BNP #### [facility] [address] [place] [address] Dr. Get Whitten SPUTUM GRAM STAINon 03-26-20 22 COMMENTS NO ORGANISMS OBSERVED Normal [facility] Comment on above: Performed By: #### C VDTBH #### [facility] [address] [place] [address] Dr. Get Whitten DIPHTHEROIDS Normal [facility] Comment on above: Performed By: #### C VDTBH #### [facility] [address] [place] [address] Dr. Get Whitten EPITHELIALS <25 Normal [facility] Comment on above: Performed By: #### C VDTBH #### [facility] [address] [place] [address] Dr. Get Whitten FUNGAL ELEMENTS Normal [facility] Comment on above: Performed By: #### C VDTBH #### [facility] [address] [address] [address] Get Whitten GRAM NEG BACILLI Normal [facility] Comment on above: Performed By: #### C VDTBH #### [facility] [address] [place] [address] Dr. Get Whitten GRAM NEG DIPPLOCOCCI Normal [facility] Comment on above: Performed By: #### C VDTBH #### [facility] [address] [place] [address] Dr. Get Whitten GRAM POS BACILLI Normal [facility] Comment on above: Performed By: #### C VDTBH #### [facility] [address] [place] [address] Dr. Get Whitten GRAM POSITIVE COCCI Normal [facility] Comment on above: Performed By: #### C VDTBH #### [facility] [address] [place] [address] Dr. Get Whitten WBC (Bld) [#/Vol] 10*3/uL Normal [facility] Comment on above: Performed By: #### C VDTBH #### [facility] [address] [place] [address] Dr. Get Whitten TROPONIN, HIGH SENSITIVITYon 03-26-2022 HSTROP 19.8 pg/mL Normal 4.0-76.1 [facility] Comment on above: Result Comment: CUT- OFF POINTS HAVE BEEN ESTABLISHED BASED ON THE FOURTH UNIVERSAL DEFINITIONS OF MYOCARDIAL INFARCTION. THE UPPER REFERENCE LIMIT (URL) OF TROPONIN, DEFINED THE 99TH PERCENTILE OF cTnI DISTRIBUTION IN A REFERENCE POPULATION, HAS BEEN CONFIRMED THE DECISION THRESHOLD FOR MS DIAGNOSIS. Performed By: #### C MP, HSTROPN, BNP #### [facility] [address] [place] [address] Dr. Get Whitten TSHon 03-26-2022 TSH 51.305 uIU/mL Critically high 0.358-3.74 0 [facility] Comment on above: Performed By: #### C MP, HSTROPN, BNP #### [facility] [address] [place] [address] Dr. Get Whitten XR CHEST 1 Von 03-26-2022 XR CHEST 1 V EXAM: XR CHEST 1 V HISTORY: COUGH COMPARISON: Chest x-ray 03/23/2022 TECHNIQUE: Single frontal view chest x-ray FINDINGS: No lobar consolidation, large pleural effusions, pneumothorax, or acute bony abnormality. Cardiac size is unremarkable. IMPRESSION: No radiographic evidence for acute chest abnormality. Electronically authenticated by: JANKI STEEL Date: 2022-03-26 04:14 Normal [facility] BNPon 03-23-2022 Natriuretic peptide B (Bld) [Mass/Vol] 385.0 pg/mL Normal <=900.0 [facility] Comment on above: Performed By: #### C MP, HSTROPN, BNP #### [facility] [address] [place] [address] Dr. Get Whitten CBC W MANUAL DIFFon 03-23-20 22 ATYPICAL LYMPH # Normal [facility] Comment on above: Performed By: #### B BANQUET SERVER, T7, CMP, TSH #### [facility] [address] [place] [address] Dr. Get Whitten ATYPICAL LYMPH % Normal [facility] Comment on above: Performed By: #### B BANQUET SERVER, T7, CMP, TSH #### [facility] [address] [place] [address] Dr. Get Whitten BAND # 0.2 103/ul Normal 0.0-0.3 [facility] Comment on above: Performed By: #### B BANQUET SERVER, T7, CMP, TSH #### [facility] [address] [place] [address] Dr. Get Whitten BAND % 2 % Normal 0-5 [facility] Comment on above: Performed By: #### B BANQUET SERVER, T7, CMP, TSH #### [facility] [address] [place] [address] Dr. Get Whitten BASOM # 0.00 103/ul Normal 0.00-0.10 [facility] Comment on above: Performed By: #### B BANQUET SERVER, T7, CMP, TSH #### [facility] [address] [place] [address] Dr. Get Whitten BASOM % 0.0 % Critically low 0.2-2.0 [facility] Comment on above: Performed By: #### B BANQUET SERVER, T7, CMP, TSH #### [facility] [address] [place] [address] Dr. Get Whitten BLAST # Normal [facility] Comment on above: Performed By: #### B BANQUET SERVER, T7, CMP, TSH #### [facility] [address] [place] [address] Dr. Get Whitten BLAST % Normal [facility] Comment on above: Performed By: #### B BANQUET SERVER, T7, CMP, TSH #### [facility] [address] [place] [address] Dr. Get Whitten CORRECTED WBC Normal 4.0-11.0 [facility] Comment on above: Performed By: #### B BANQUET SERVER, T7, CMP, TSH #### [facility] [address] [place] [address] Dr. eGt Whitten EOS # 0.00 103/ul Normal 0.00-0.70 [facility] Comment on above: Performed By: #### B BANQUET SERVER, T7, CMP, TSH #### [facility] [address] [place] [address] Dr. Get Whitten EOS% 0.0 % Critically low 0.9-7.0 [facility] Comment on above: Performed By: #### B BANQUET SERVER, T7, CMP, TSH #### [facility] [address] [place] [address] Dr. Get Whitten HCT 45.6 % Normal 42.0-54.0 [facility] Comment on above: Performed By: #### B BANQUET SERVER, T7, CMP, TSH #### [facility] [address] [place] [address] Dr. Get Whitten HGB 16.3 g/dl Normal 14.0-18.0 [facility] Comment on above: Performed By: #### B BANQUET SERVER, T7, CMP, TSH #### [facility] [address] [place] [address] Dr. Get Whitten LYMPHM # 0.89 103/ul Critically low 1.20-3.80 [facility] Comment on above: Performed By: #### B BANQUET SERVER, T7, CMP, TSH #### [facility] [address] [place] [address] Dr. Get Whitten LYMPHM% 9.0 % Critically low 20.5-60.0 [facility] Comment on above: Performed By: #### B BANQUET SERVER, T7, CMP, TSH #### [facility] [address] [place] [address] Dr. Get Whitten MCH 36.5 pg Critically high 25.9-34.0 [facility] Comment on above: Performed By: #### B BANQUET SERVER, T7, CMP, TSH #### [facility] [address] [place] [address] Dr. Get Whitten MCHC 35.7 g/dl Critically high 29.9-35.2 [facility] Comment on above: Performed By: #### B BANQUET SERVER, T7, CMP, TSH #### [facility] [address] [place] [address] Dr. Get Whitten MCV 102.0 fL Critically high 80.0-94.0 [facility] Comment on above: Performed By: #### B BANQUET SERVER, T7, CMP, TSH #### [facility] [address] [place] [address] Dr. Get Whitten METAMYELOCYTE # Normal [facility] Comment on above: Performed By: #### B BANQUET SERVER, T7, CMP, TSH #### [facility] [address] [place] [address] Dr. Get Whitten METAMYELOCYTE % Normal [facility] Comment on above: Performed By: #### B BANQUET SERVER, T7, CMP, TSH #### [facility] [address] [place] [address] Dr. Get Whitten MONOM# 0.89 103/ul Critically high 0.30-0.80 [facility] Comment on above: Performed By: #### B BANQUET SERVER, T7, CMP, TSH #### [facility] [address] [place] [address] Dr. Get Whitten MONOM% 9.0 % Normal 1.7-12.0 [facility] Comment on above: Performed By: #### B BANQUET SERVER, T7, CMP, TSH #### [facility] [address] [place] [address] Dr. Get Whitten MPV 8.8 fL Critically low 9.5-13.5 [facility] Comment on above: Performed By: #### B BANQUET SERVER, T7, CMP, TSH #### [facility] [address] [place] [address] Dr. Get Whitten MYELOCYTE # Normal [facility] Comment on above: Performed By: #### B BANQUET SERVER, T7, CMP, TSH #### [facility] [address] [place] [address] Dr. Get Whitten MYELOCYTE % Normal [facility] [facility] Comment on above: Performed By: #### B BANQUET SERVER, T7, CMP, TSH #### [facility] [address] [place] [address] Dr. Get Whitten NRBC Normal [facility] Comment on above: Performed By: #### B BANQUET SERVER, T7, CMP, TSH #### [facility] [address] [place] [address] Dr. Get Whitten PLT 156 103/ul Normal 150-450 [facility] Comment on above: Performed By: #### B BANQUET SERVER, T7, CMP, TSH #### [facility] [address] [place] [address] Dr. Get Whitten RBC 4.47 106/ul Critically low 4.70-6.10 [facility] Comment on above: Performed By: #### B BANQUET SERVER, T7, CMP, TSH #### [facility] [address] [place] [address] Dr. Get Whitten RDW 12.4 % Normal 11.0-15.0 [facility] Comment on above: Performed By: #### B BANQUET SERVER, T7, CMP, TSH #### [facility] [address] [place] [address] Dr. Get Whitten SEG # 7.92 103/ul Critically high 1.40-6.50 [facility] Comment on above: Performed By: #### B BANQUET SERVER, T7, CMP, TSH #### [facility] [address] [place] [address] Dr. Get Whitten SEG % 80.0 % Critically high 43.0-75.0 [facility] Comment on above: Performed By: #### B BANQUET SERVER, T7, CMP, TSH #### [facility] [address] [place] [address] Dr. Get Whitten WBC 9.9 103/ul Normal 4.0-11.0 [facility] Comment on above: Performed By: #### B BANQUET SERVER, T7, CMP, TSH #### [facility] [address] [place] [address] Dr. Get Whitten PROF 14(COMP METB)on 022 Albumin [Mass/Vol] 3.9 g/dL Normal 3.4-5.0 [facility] Comment on above: Performed By: #### C MP, HSTROPN, BNP #### [facility] [address] [place] [address] Dr. Get Whitten Albumin/Globulin [Mass ratio] 1.1 {ratio} Normal [facility] Comment on above: Performed By: #### C MP, HSTROPN, BNP #### [facility] [address] [place] [address] Dr. Get Whitten ALP [Catalytic activity/Vol] 55 U/L Normal 46-116 [facility] Comment on above: Performed By: #### C MP, HSTROPN, BNP #### [facility] [address] [place] [address] Dr. Get Whitten ALT [Catalytic activity/Vol] 67 U/L Critically high 16-63 [facility] Comment on above: Performed By: #### C MP, HSTROPN, BNP #### [facility] [address] [place] [address] Dr. Get Whitten Anion gap [Moles/Vol] 13.2 mmol/L Normal [facility] Comment on above: Performed By: #### C MP, HSTROPN, BNP #### [facility] [address] [place] [address] Dr. Get Whitten AST [Catalytic activity/Vol] 20 U/L Normal 15-37 [facility] Comment on above: Performed By: #### C MP, HSTROPN, BNP #### [facility] [address] [place] [address] Dr. Get Whitten Bilirubin [Mass/Vol] 0.4 mg/dL Normal 0.2-1.0 [facility] Comment on above: Performed By: #### C MP, HSTROPN, BNP #### [facility] [address] [place] [address] Dr. Get Whitten Calcium [Mass/Vol] 8.5 mg/dL Normal 8.5-10.1 [facility] Comment on above: Performed By: #### C MP, HSTROPN, BNP #### [facility] [address] [place] [address] Dr. Get Whitten Chloride [Moles/Vol] 93 mmol/L Critically low 98-107 [facility] Comment on above: Performed By: #### C MP, HSTROPN, BNP #### [facility] [address] [place] [address] Dr. Get Whitten CO2 [Moles/Vol] 22.6 mmol/L Normal 21.0-32.0 [facility] Comment on above: Performed By: #### C MP, HSTROPN, BNP #### [facility] [address] [place] [address] Dr. Get Whitten Creatinine [Mass/Vol] 1.26 mg/dL Normal 0.70-1.30 [facility] Comment on above: Performed By: #### C MP, HSTROPN, BNP #### [facility] [address] [place] [address] Dr. Get Whitten EGFR-AF CHADIAN >60 Normal >=60 [facility] Comment on above: Performed By: #### C MP, HSTROPN, BNP #### [facility] [address] [place] [address] Dr. Get Whitten EGFR-NON AF CHADIAN 59 mL/min/1.73m2 Critically low >=60 [facility] Comment on above: Performed By: #### C MP, HSTROPN, BNP #### [facility] [address] [address] [address] Get Whitten Globulin (S) [Mass/Vol] 3.5 g/dL Normal [facility] Comment on above: Performed By: #### C MP, HSTROPN, BNP #### [facility] [address] [address] [address] Get Whitten Glucose [Mass/Vol] 144 mg/dL Critically high 74-106 [facility] Comment on above: Performed By: #### C MP, HSTROPN, BNP #### [facility] [address] [place] [address] Dr. Get Whitten Potassium [Moles/Vol] 3.9 mmol/L Normal 3.5-5.1 [facility] Comment on above: Performed By: #### C MP, HSTROPN, BNP #### [facility] [address] [place] [address] Dr. Get Whitten Protein [Mass/Vol] 7.4 g/dL Normal 6.4-8.2 [facility] Comment on above: Performed By: #### C MP, HSTROPN, BNP #### [facility] [address] [place] [address] Dr. Get Whitten Sodium [Moles/Vol] 125 mmol/L Critically low 136-145 [facility] Comment on above: Performed By: #### C MP, HSTROPN, BNP #### [facility] [address] [place] [address] Dr. Get Whitten Urea nitrogen [Mass/Vol] 14.0 mg/dL Normal 7.0-18.0 [facility] Comment on above: Performed By: #### C MP, HSTROPN, BNP #### [facility] [address] [place] [address] Dr. Get Whitten Urea nitrogen/Creatinine [Mass ratio] 11.1 mg/mg Normal [facility] Comment on above: Performed By: #### C MP, HSTROPN, BNP #### [facility] [address] [place], [place] [address] [address]. Get Whitten TROPONIN, HIGH SENSITIVITYon 03-23-2022 HSTROP 6.6 pg/mL Normal 4.0-76.1 [facility] Comment on above: Result Comment: CUT- OFF POINTS HAVE BEEN ESTABLISHED BASED ON THE FOURTH UNIVERSAL DEFINITIONS OF MYOCARDIAL INFARCTION. THE UPPER REFERENCE LIMIT (URL) OF TROPONIN, DEFINED THE 99TH PERCENTILE OF cTnI DISTRIBUTION IN A REFERENCE POPULATION, HAS BEEN CONFIRMED THE DECISION THRESHOLD FOR MS DIAGNOSIS. Performed By: #### C MP, HSTROPN, BNP #### [facility] [address], [place] [address] [address]. Get Whitten XR CHEST 1 Von [...] SHEN SOSA Date: 2022-03-23 15:02 Normal [facility] Covid-19 PCR (CVDTB)on SARS-CoV-2 (COVID-19) RNA ASHLEE+probe Ql (Unsp spec) Detected Critically abnormal NOT DETECTED [facility] Comment on above: Result Comment: This test is not yet approved or cleared by the [place] FDA. When there are no FDA-approved or cleared tests available, and other criteria are met, FDA can make tests available under an emergency access mechanism called an Emergency Use Authorization (EUA). The EUA for this test is supported by the [place] of Health and Human Service's declaration that [...] By: #### C MP, HSTROPN, BNP #### [facility] [address] [place] [address] Dr. Get Whitten CBC AUTO DIFFon 01-24-2022 BASO # 0.1 103/ul Normal 0.0-0.1 [facility] Comment on above: Performed By: #### B BANQUET SERVER, T7, CMP, TSH #### [facility] [address] [place] [address] Dr. Get Whitten Basophils/100 WBC (Bld) 0.6 % Normal 0.2-2.0 [facility] Comment on above: Performed By: #### B BANQUET SERVER, T7, CMP, TSH #### [facility] [address] [place] [address] Dr. Get Whitten EO # 0.0 103/ul Normal 0.0-0.7 [facility] Comment on above: Performed By: #### B BANQUET SERVER, T7, CMP, TSH #### [facility] [address] [place] [address] Dr. Get Whitten Eosinophils/100 WBC (Bld) 0.1 % Critically low 0.9-7.0 [facility] Comment on above: Performed By: #### B BANQUET SERVER, T7, CMP, TSH #### [facility] [address] [place] [address] Dr. Get Whitten Erythrocyte distribution width (RBC) [Ratio] 13.1 % Normal 11.0-15.0 [facility] Comment on above: Performed By: #### B BANQUET SERVER, T7, CMP, TSH #### [facility] [address] [place] [address] Dr. Get Whitten Hematocrit (Bld) [Volume fraction] 41.0 % Critically low 42.0-54.0 [facility] Comment on above: Performed By: #### B BANQUET SERVER, T7, CMP, TSH #### [facility] [address] [place] [address] Dr. Get Whitten Hemoglobin (Bld) [Mass/Vol] 14.3 g/dL Normal 14.0-18.0 [facility] Comment on above: Performed By: #### B BANQUET SERVER, T7, CMP, TSH #### [facility] [address] [place] [address] Dr. Get Whitten IG # 0.25 10e3/ul Critically high 0.00-0.03 [facility] Comment on above: Performed By: #### B BANQUET SERVER, T7, CMP, TSH #### [facility] [address] [place] [address] Dr. Get Whitten IG % 2.3 % Critically high 0.0-0.5 [facility] Comment on above: Performed By: #### B BANQUET SERVER, T7, CMP, TSH #### [facility] [address] [place] [address] Dr. Get Whitten LYMPH # 2.4 103/ul Normal 1.2-3.8 [facility] Comment on above: Performed By: #### B BANQUET SERVER, T7, CMP, TSH #### [facility] [address] [place] [address] Dr. Get Whitten Lymphocytes/100 WBC (Bld) 21.7 % Normal 20.5-60.0 [facility] Comment on above: Performed By: #### B BANQUET SERVER, T7, CMP, TSH #### [facility] [address] [place] [address] Dr. Get Whitten MANUAL DIFF REQ NO Normal [facility] Comment on above: Performed By: #### B BANQUET SERVER, T7, CMP, TSH #### [facility] [address] [place] [address] Dr. Get Whitten MCH (RBC) [Entitic mass] 37.0 pg Critically high 25.9-34.0 [facility] Comment on above: Performed By: #### B BANQUET SERVER, T7, CMP, TSH #### [facility] [address] [place] [address] Dr. Get Whitten MCHC (RBC) [Mass/Vol] 34.9 g/dL Normal 29.9-35.2 [facility] Comment on above: Performed By: #### B BANQUET SERVER, T7, CMP, TSH #### [facility] [address] [place] [address] Dr. Get Whitten MCV (RBC) [Entitic vol] 105.9 fL Critically high 80.0-94.0 [facility] Comment on above: Result Comment: 1+ m acrocytosis Performed By: #### B BANQUET SERVER, T7, CMP, TSH #### [facility] [address] [place] [address] Dr. Get Whitten MONO # 0.8 103/ul Normal 0.3-0.8 [facility] Comment on above: Performed By: #### B BANQUET SERVER, T7, CMP, TSH #### [facility] [address] [place] [address] Dr. Get Whitten Monocytes/100 WBC (Bld) 7.0 % Normal 1.7-12.0 [facility] Comment on above: Performed By: #### B BANQUET SERVER, T7, CMP, TSH #### [facility] [address] [place] [address] Dr. Get Whitten NEUT # 7.5 103/ul Critically high 1.4-6.5 [facility] Comment on above: Performed By: #### B BANQUET SERVER, T7, CMP, TSH #### [facility] [address] [place] [address] Dr. Get Whitten Neutrophils/100 WBC (Bld) 68.3 % Normal 43.0-75.0 [facility] Comment on above: Performed By: #### B BANQUET SERVER, T7, CMP, TSH #### [facility] [address] [place] [address] Dr. Get Whitten Platelet mean volume (Bld) [Entitic vol] 8.6 fL Critically low 9.5-13.5 [facility] Comment on above: Performed By: #### B BANQUET SERVER, T7, CMP, TSH #### [facility] [address] [place] [address] Dr. Get Whitten PLT 235 103/ul Normal 150-450 [facility] Comment on above: Performed By: #### B BANQUET SERVER, T7, CMP, TSH #### [facility] [address] [place] [address] Dr. Get Whitten RBC 3.87 106/ul Critically low 4.70-6.10 [facility] Comment on above: Performed By: #### B BANQUET SERVER, T7, CMP, TSH #### [facility] [address] [address] [address] Get Whitten WBC 11.0 103/ul Normal 4.0-11.0 [facility] Comment on above: Performed By: #### B BANQUET SERVER, T7, CMP, TSH #### [facility] [address] [address] [address] Get Whitten POINT OF CARE GLUCOSEon 01-13 Glucose [Mass/Vol] 116 mg/dL Critically high 74-106 [facility] Comment on above: Performed By: #### C MP #### [facility] [address] [place] [address] Dr. Get Whitten PROF CHEM 8 (BAS METB)on Anion gap [Moles/Vol] 14.2 mmol/L Normal [facility] Comment on above: Performed By: #### B BANQUET SERVER, T7, CMP, TSH #### [facility] [address] [address] [address] Get Whitten Calcium [Mass/Vol] 8.7 mg/dL Normal 8.5-10.1 [facility] Comment on above: Performed By: #### B BANQUET SERVER, T7, CMP, TSH #### [facility] [address] [address] [address] Get Whitten Chloride [Moles/Vol] 99 mmol/L Normal 98-107 [facility] Comment on above: Performed By: #### B BANQUET SERVER, T7, CMP, TSH #### [facility] [address] [address] [address] Get Whitten CO2 [Moles/Vol] 25.1 mmol/L Normal 21.0-32.0 [facility] Comment on above: Performed By: #### B BANQUET SERVER, T7, CMP, TSH #### [facility] [address] [address] [address] Get Whitten Creatinine [Mass/Vol] 1.24 mg/dL Normal 0.70-1.30 [facility] Comment on above: Performed By: #### B BANQUET SERVER, T7, CMP, TSH #### [facility] [address] [place] [address] Dr. Get Whitten EGFR-AF CHADIAN >60 Normal >=60 [facility] Comment on above: Performed By: #### B BANQUET SERVER, T7, CMP, TSH #### [facility] [address] [place] [address] Dr. Get Whitten EGFR-NON AF CHADIAN =60 Normal >=60 [facility] Comment on above: Performed By: #### B BANQUET SERVER, T7, CMP, TSH #### [facility] [address] [place] [address] Dr. Get Whitten Glucose [Mass/Vol] 122 mg/dL Critically high 74-106 T [facility] Comment on above: Performed By: #### B BANQUET SERVER, T7, CMP, TSH #### [facility] [address] [place] [address] Dr. Get Whitten Potassium [Moles/Vol] 4.3 mmol/L Normal 3.5-5.1 [facility] Comment on above: Performed By: #### B BANQUET SERVER, T7, CMP, TSH #### [facility] [address] [place] [address] Dr. Get Whitten Sodium [Moles/Vol] 134 mmol/L Critically low 136-145 [facility] Comment on above: Performed By: #### B BANQUET SERVER, T7, CMP, TSH #### [facility] [address] [place] [address] Dr. Get Whitten Urea nitrogen [Mass/Vol] 7.0 mg/dL Normal 7.0-18.0 [facility] Comment on above: Performed By: #### B BANQUET SERVER, T7, CMP, TSH #### [facility] [address] [place] [address] Dr. Get Whitten Urea nitrogen/Creatinine [Mass ratio] 5.6 mg/mg Normal [facility] Comment on above: Performed By: #### B BANQUET SERVER, T7, CMP, TSH #### [facility] [address] [address] [address] Get Whitten TROPONIN, HIGH SENSITIVITYon 01-24-2022 HSTROP 5.1 pg/mL Normal 4.0-76.1 [facility] Comment on above: Result Comment: CUT- OFF POINTS HAVE BEEN ESTABLISHED BASED ON THE FOURTH UNIVERSAL DEFINITIONS OF MYOCARDIAL INFARCTION. THE UPPER REFERENCE LIMIT (URL) OF TROPONIN, DEFINED THE 99TH PERCENTILE OF cTnI DISTRIBUTION IN A REFERENCE POPULATION, HAS BEEN CONFIRMED THE DECISION THRESHOLD FOR MS DIAGNOSIS. Performed By: #### B BANQUET SERVER, T7, CMP, TSH #### [facility] [address] [place] [address] Dr. Get Whitten XR CHEST 1 Von [...] CESAR PARKER Date: 2022-01-24 11:31 Normal [facility] BNPon 01-09-2022 Natriuretic peptide B (Bld) [Mass/Vol] 83.0 pg/mL Normal <=900.0 [facility] Comment on above: Performed By: #### C MP, HSTROPN, BNP #### [facility] [address] [place] [address] Dr. Get Whitten CBC AUTO DIFFon 01-09-2022 BASO # 0.0 103/ul Normal 0.0-0.1 [facility] Comment on above: Performed By: #### C MP #### [facility] [address] [address] [address] Get Whitten Basophils/100 WBC (Bld) 0.4 % Normal 0.2-2.0 [facility] Comment on above: Performed By: #### C MP #### [facility] [address] [place] [address] Dr. Get Whitten EO # 0.0 103/ul Normal 0.0-0.7 [facility] Comment on above: Performed By: #### C MP #### [facility] [address] [address] [address] Get Whitten Eosinophils/100 WBC (Bld) 0.2 % Critically low 0.9-7.0 [facility] Comment on above: Performed By: #### C MP #### [facility] [address] [place] [address] Dr. Get Whitten Erythrocyte distribution width (RBC) [Ratio] 13.1 % Normal 11.0-15.0 [facility] Comment on above: Performed By: #### C MP #### [facility] [address] [place] [address] Dr. Get Whitten Hematocrit (Bld) [Volume fraction] 41.5 % Critically low 42.0-54.0 [facility] Comment on above: Performed By: #### C MP #### [facility] [address] [place] [address] Dr. Get Whitten Hemoglobin (Bld) [Mass/Vol] 14.4 g/dL Normal 14.0-18.0 [facility] Comment on above: Performed By: #### C MP #### [facility] [address] [place] [address] Dr. Get Whitten IG # 0.12 10e3/ul Critically high 0.00-0.03 [facility] Comment on above: Performed By: #### C MP #### [facility] [address] [place] [address] Dr. Get Whitten IG % 1.1 % Critically high 0.0-0.5 [facility] Comment on above: Performed By: #### C MP #### [facility] [address] [place] [address] Dr. Get Whitten LYMPH # 2.3 103/ul Normal 1.2-3.8 [facility] Comment on above: Performed By: #### C MP #### [facility] [address] [place] [address] Dr. Get Whitten Lymphocytes/100 WBC (Bld) 20.9 % Normal 20.5-60.0 [facility] Comment on above: Performed By: #### C MP #### [facility] [address] [place] [address] Dr. Get Whitten MANUAL DIFF REQ NO Normal [facility] Comment on above: Performed By: #### C MP #### [facility] [address] [place] [address] Dr. Get Whitten MCH (RBC) [Entitic mass] 37.1 pg Critically high 25.9-34.0 [facility] Comment on above: Performed By: #### C MP #### [facility] [address] [place] [address] Dr. Get Whitten MCHC (RBC) [Mass/Vol] 34.7 g/dL Normal 29.9-35.2 [facility] Comment on above: Performed By: #### C MP #### [facility] [address] [place] [address] Dr. Get Whitten MCV (RBC) [Entitic vol] 107.0 fL Critically high 80.0-94.0 [facility] Comment on above: Result Comment: 1+ m acrocytosis Performed By: #### C MP #### [facility] [address] [place] [address] Dr. Get Whitten MONO # 0.7 103/ul Normal 0.3-0.8 [facility] Comment on above: Performed By: #### C MP #### [facility] [address] [place] [address] Dr. Get Whitten Monocytes/100 WBC (Bld) 6.3 % Normal 1.7-12.0 [facility] Comment on above: Performed By: #### C MP #### [facility] [address] [place] [address] Dr. Get Whitten NEUT # 7.7 103/ul Critically high 1.4-6.5 [facility] Comment on above: Performed By: #### C MP #### [facility] [address] [place] [address] Dr. Get Whitten Neutrophils/100 WBC (Bld) 71.1 % Normal 43.0-75.0 [facility] Comment on above: Performed By: #### C MP #### [facility] [address] [address] [address] Get Whitten Platelet mean volume (Bld) [Entitic vol] 8.6 fL Critically low 9.5-13.5 [facility] Comment on above: Performed By: #### C MP #### [facility] [address] [address] [address] Get Whitten PLT 238 103/ul Normal 150-450 [facility] Comment on above: Performed By: #### C MP #### [facility] [address] [address] [address] Get Whitten RBC 3.88 106/ul Critically low 4.70-6.10 [facility] Comment on above: Performed By: #### C MP #### [facility] [address] [place] [address] Dr. Get Whitten WBC 10.8 103/ul Normal 4.0-11.0 [facility] Comment on above: Performed By: #### C MP #### [facility] [address] [address] [address] Get Whitten Covid-19 PCR ([facility])on 12-15 SARS-CoV-2 (COVID-19) RNA ASHLEE+probe Ql (Unsp spec) Not detected Normal NOT DETECTED [facility] Comment on above: Result Comment: When [...] for this test is supported by the [place] of Health and Human Service's declaration that [...] By: #### C MP, HSTROPN, BNP #### [facility] [address] [place] [address] Dr. Get Whitten PROF 14(COMP METB)on 022 Albumin [Mass/Vol] 4.0 g/dL Normal 3.4-5.0 [facility] Comment on above: Performed By: #### C MP, HSTROPN, BNP #### [facility] [address] [place] [address] Dr. Get Whitten Albumin/Globulin [Mass ratio] 1.0 {ratio} Normal [facility] Comment on above: Performed By: #### C MP, HSTROPN, BNP #### [facility] [address] [place] [address] Dr. Get Whitten ALP [Catalytic activity/Vol] 90 U/L Normal 46-116 [facility] Comment on above: Performed By: #### C MP, HSTROPN, BNP #### [facility] [address] [place] [address] Dr. Get Whitten ALT [Catalytic activity/Vol] 27 U/L Normal 16-63 [facility] Comment on above: Performed By: #### C MP, HSTROPN, BNP #### [facility] [address] [place] [address] Dr. Get Whitten Anion gap [Moles/Vol] 12.6 mmol/L Normal [facility] Comment on above: Performed By: #### C MP, HSTROPN, BNP #### [facility] [address] [place] [address] Dr. Get Whitten AST [Catalytic activity/Vol] 16 U/L Normal 15-37 [facility] Comment on above: Performed By: #### C MP, HSTROPN, BNP #### [facility] [address] [place] [address] Dr. Get Whitten Bilirubin [Mass/Vol] 0.4 mg/dL Normal 0.2-1.0 [facility] Comment on above: Performed By: #### C MP, HSTROPN, BNP #### [facility] [address] [place] [address] Dr. Get Whitten Calcium [Mass/Vol] 8.4 mg/dL Critically low 8.5-10.1 Th [facility] Comment on above: Performed By: #### C MP, HSTROPN, BNP #### [facility] [address] [place] [address] Dr. Get Whitten Chloride [Moles/Vol] 100 mmol/L Normal 98-107 [facility] Comment on above: Performed By: #### C MP, HSTROPN, BNP #### [facility] [address] [place] [address] Dr. Get Whitten CO2 [Moles/Vol] 25.1 mmol/L Normal 21.0-32.0 [facility] Comment on above: Performed By: #### C MP, HSTROPN, BNP #### [facility] [address] [place] [address] Dr. Get Whitten Creatinine [Mass/Vol] 1.20 mg/dL Normal 0.70-1.30 [facility] Comment on above: Performed By: #### C MP, HSTROPN, BNP #### [facility] [address] [place] [address] Dr. Get Whitten EGFR-AF CHADIAN >60 Normal >=60 [facility] Comment on above: Performed By: #### C MP, HSTROPN, BNP #### [facility] [address] [place] [address] Dr. Get Whitten EGFR-NON AF CHADIAN >60 Normal >=60 [facility] Comment on above: Performed By: #### C MP, HSTROPN, BNP #### [facility] [address] [place] [address] Dr. Get Whitten Globulin (S) [Mass/Vol] 4.0 g/dL Normal [facility] Comment on above: Performed By: #### C MP, HSTROPN, BNP #### [facility] [address] [place] [address] Dr. Get Whitten Glucose [Mass/Vol] 110 mg/dL Critically high 74-106 T [facility] Comment on above: Performed By: #### C MP, HSTROPN, BNP #### [facility] [address] [address] [address] Get Whitten Potassium [Moles/Vol] 4.7 mmol/L Normal 3.5-5.1 [facility] Comment on above: Performed By: #### C MP, HSTROPN, BNP #### [facility] [address] [place] [address] Dr. Get Whitten Protein [Mass/Vol] 8.0 g/dL Normal 6.4-8.2 [facility] Comment on above: Performed By: #### C MP, HSTROPN, BNP #### [facility] [address] [place] [address] Dr. Get Whitten Sodium [Moles/Vol] 133 mmol/L Critically low 136-145 Th [facility] Comment on above: Performed By: #### C MP, HSTROPN, BNP #### [facility] [address] [address] [address] Get Whitten Urea nitrogen [Mass/Vol] 7.0 mg/dL Normal 7.0-18.0 [facility] Comment on above: Performed By: #### C MP, HSTROPN, BNP #### [facility] [address] [place] [address] Dr. Get Whitten Urea nitrogen/Creatinine [Mass ratio] 5.8 mg/mg Normal [facility] Comment on above: Performed By: #### C MP, HSTROPN, BNP #### [facility] [address] [place] [address] Dr. Get Whitten PROTIMEon 01-09-2022 INR Coag (PPP) [Relative time] {INR} Normal [facility] Comment on above: Performed By: #### C VDTBH #### [facility] [address] [place] [address] Dr. Get Whitten INR GUIDELINES SEE BELOW Normal [facility] Comment on above: Result Comment: JORGE RED INR: 2.0 - 3.0 CONDITIONS NOT LISTED BELOW 2.5 - 3.5 FOR PROSTHETIC HEART VALVE REPLACEMENT 2.5 - 3.5 RECURRENT THROMBOSIS Performed By: #### C VDTBH #### [facility] [address] [place] [address] Dr. Get Whitten PT Coag (PPP) [Time] 9.8 s Normal 9.0-11.6 [facility] Comment on above: Performed By: #### C VDTBH #### [facility] [address] [address] [address] Get Whitten PTTon 01-09-2022 aPTT Coag (Bld) [Time] 28.5 s Normal 22.3-36.2 Th e [facility] Comment on above: Performed By: #### C MP #### [facility] [address] [place] [address] Dr. Get Whitten TROPONIN, HIGH SENSITIVITYon 01-09-2022 HSTROP 4.1 pg/mL Normal 4.0-76.1 [facility] Comment on above: Result Comment: CUT- OFF POINTS HAVE BEEN ESTABLISHED BASED ON THE FOURTH UNIVERSAL DEFINITIONS OF MYOCARDIAL INFARCTION. THE UPPER REFERENCE LIMIT (URL) OF TROPONIN, DEFINED THE 99TH PERCENTILE OF cTnI DISTRIBUTION IN A REFERENCE POPULATION, HAS BEEN CONFIRMED THE DECISION THRESHOLD FOR MS DIAGNOSIS. Performed By: #### C MP, HSTROPN, BNP #### [facility] [address] [place] [address] Dr. Get Whitten XR CHEST 1 Von [...] CESAR BUTCHER Date: 2022-01-09 18:21 Normal [facility] Coding Summary.on 12-18-2018 Coding Summary. 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, left eye SECONDARY: PYMT PROC APC STAT DESCRIPTION DOCTOR NAME DATE 5480 T Discission of secondary Darnell Rick DO [...] [place]ona Woodward Date Saved: 12/18/2018 10:51 am [facility] Vital Signs Date Time Vital Sign Value Performing Clinician Faci lity 03-04-2025 11:170400 Body height 182.88 cm Pee Lakhani MD Work Phone: [facility] 03-04-2025 11:17-0400 Body mass index (BMI) [Ratio] 28.4 kg/m2 Pee Lakhani MD Work Phone: [facility] 03-04-2025 11:17-0400 Body weight 95 kg Pee Lakhani MD Work Phone: [facility] 02-26-2025 11:34-0400 Diastolic blood pressure 83 mm[Hg] Pee Lakhani MD Work Phone: [facility] 02-26-2025 11:34-0400 Heart rate 60 /min Pee Lakhani MD Work Phone: [facility] 02-26-2025 11:34-0400 Respiratory rate 15 /min Pee Lakhani MD Work Phone: [facility] 02-26-2025 11:34-0400 SaO2% (BldA) [Mass fraction] 97 % Pee Lakhani MD Work Phone: [facility] 02-26-2025 11:34-0400 Systolic blood pressure 133 mm[Hg] Pee Lakhani MD Work Phone: [facility] 02-26-2025 04:26-0400 Body weight 95 kg Pee Lakhani MD Work Phone: [facility] 02-26-2025 04:00-0400 Body temperature 97.6 [degF] Pee Lakhani MD Work Phone: [facility] 02-24-2025 08:12-0400 Body height 182.88 cm Pee Lakhani MD Work Phone: [facility] 12-14-2024 08:24-0400 Body temperature 98.4 [degF] Pee Lakhani MD Work Phone: [facility] 12-14-2024 08:24-0400 Diastolic blood pressure 78 mm[Hg] Pee Lakhani MD Work Phone: [facility] 12-14-2024 08:24-0400 Heart rate 73 /min Pee Lakhani MD Work Phone: [facility] 12-14-2024 08:24-0400 Respiratory rate 20 /min Pee Lakhani MD Work Phone: [facility] 12-14-2024 08:24-0400 SaO2% (BldA) [Mass fraction] 100 % Pee Lakhani MD Work Phone: [facility] 12-14-2024 08:24-0400 Systolic blood pressure 122 mm[Hg] Pee Lakhani MD Work Phone: [facility] 12-14-2024 05:53-0400 Body weight 104.4 kg Pee Lakhani MD Work Phone: [facility] 12-11-2024 11:01-0400 Body height 185.42 cm Pee Lakhani MD Work Phone: [facility] 12-03-2024 15:17-0400 Diastolic blood pressure 69 mm[Hg] Pee Lakhani MD Work Phone: [facility] 12-03-2024 15:17-0400 Heart rate 88 /min Pee Lakhani MD Work Phone: [facility] 12-03-2024 15:17-0400 Respiratory rate 16 /min Pee Lakhani MD Work Phone: [facility] 12-03-2024 15:17-0400 SaO2% (BldA) [Mass fraction] 99 % Pee Lakhani MD Work Phone: [facility] 12-03-2024 15:17-0400 Systolic blood pressure 124 mm[Hg] Pee Lakhani MD Work Phone: [facility] 12-03-2024 12:37-0400 Body temperature 98.8 [degF] Pee Lakhani MD Work Phone: [facility] 12-03-2024 06:33-0400 Body weight 99.5 kg Pee Lakhani MD Work Phone: [facility] 12-02-2024 16:50-0400 Inhaled oxygen flow rate 8 L/min Pee Lakhani MD Work Phone: [facility] 12-02-2024 13:45-0400 Body height 185.42 cm Pee Lakhani MD Work Phone: [facility] Encounters Encounter Date Encounter Type Care Provider Facility Start: 04-13-2025 End: 04-13-2025 [facility] Start: 04-13-2025 End: 04-13-2025 [facility] Start: 04-13-2025 End: 04-13-2025 Patient encounter procedure Frances PITTS Work Phone: [facility] Comment on above: Rash and other nonsp ecific skin eruption Start: 04-13-2025 End: 04-13-2025 [facility] Start: 03-11-2025 ambulatory JYOTI ALVAREZUBB [facility] Start: 03-06-2025 End: 03-06-2025 Bamboo flowsheet Frances Rosen PA Work Phone: [facility] Start: 03-06-2025 End: 03-06-2025 Bamboo flowsheet Frances Rosen PA Work Phone: [facility] Start: 03-06-2025 End: 03-06-2025 Office outpatient new 30 minutes [facility] Comment on above: Rash and other nonsp ecific skin eruption (Primary Dx) Start: 03-06-2025 End: 03-06-2025 ambulatory FRANCES ROSEN Not Available Start: 03-04-2025 End: 03-04-2025 ambulatory Pee Lakhani MD Work Phone: [facility] Work Phone: Start: 03-04-2025 End: 03-04-2025 Patient encounter procedure Nishant Ceja DO -[facility] Work Phone: Start: 02-24-2025 End: 02-26-2025 ambulatory Ammon Huang Facility:[facility] Start: 02-24-2025 End: 02-26-2025 Evaluation and management of inpatient Nishant Ceja DO [address] [facility] Work Phone: Start: 02-24-2025 End: 02-26-2025 observation encounter Pee Lakhani MD Work Phone: [facility] Work Phone: Start: 02-24-2025 Non-patient / Non-visit Ammon yeung MD -[facility] Work Phone: Start: 02-17-2025 ambulatory BARBARA WILLS [facility] Start: 02-11-2025 End: 02-11-2025 ambulatory Pee Lakhani MD Work Phone: [facility] Work Phone: Start: 02-11-2025 End: 02-11-2025 Patient encounter procedure Nishant Ceja DO [facility] Work Phone: Start: 02-06-2025 End: 02-06-2025 Patient encounter procedure Nishant Ceja DO -Pre-Surgical Testing Work Phone: Start: 02-06-2025 End: 02-06-2025 ambulatory Pee Lakhani MD Work Phone: [facility] Work Phone: Start: 02-06-2025 Encounter for preprocedural laboratory examination Nishant Ceja [facility] Start: 01-30-2025 ambulatory [facility] Start: 01-12-2025 End: 01-12-2025 ambulatory Pee Lakhani MD Work Phone: [facility] Work Phone: Start: 01-12-2025 End: 01-12-2025 Patient encounter procedure Nishant Samra [facility] Work Phone: Start: 12-22-2024 End: 12-22-2024 ambulatory Pee Lakhani MD Work Phone: [facility] Work Phone: Start: 12-22-2024 End: 12-22-2024 Patient encounter procedure Pee Lakhani MD Work Phone: [facility] Work Phone: Start: 12-12-2024 Non-patient / Non-visit Noa Lakhani MD Work Phone: [facility] Work Phone: Start: 12-04-2024 Non-patient / Non-visit Noa Lakhani MD Work Phone: [facility] Work Phone: Start: 12-03-2024 End: 12-14-2024 Evaluation and management of inpatient Pee Lakhani MD Work Phone: [facility] [place] [facility] Work Phone: Start: 12-03-2024 Non-patient / Non-visit Noa Lakhani MD Work Phone: [facility] Work Phone: Start: 12-01-2024 Non-patient / Non-visit Noa Lakhani MD Work Phone: [facility] Work Phone: Start: 12-01-2024 End: 12-03-2024 Evaluation and management of inpatient Pee Lakhani MD Work Phone: [facility] Work Phone: Start: 11-25-2024 ambulatory [facility] Start: 10-13-2024 ambulatory [facility] Start: 10-01-2024 End: 10-01-2024 [facility] Start: 08-06-2024 ambulatory [facility] Start: 06-25-2024 ambulatory [facility] Start: 06-06-2024 ambulatory [facility] Start: 05-23-2024 ambulatory [facility] Start: 05-09-2024 ambulatory [facility] Start: 04-16-2024 ambulatory [facility] Start: 03-28-2024 End: 03-28-2024 ambulatory BETTY HUI [facility] Start: 01-08-2023 End: 01-09-2023 ambulatory Hernandez Wylie MD Facility:[facility] Start: 12-25-2022 End: 12-26-2022 ambulatory Hernandez Wylie MD Facility:[facility] [place] Start: 11-27-2022 End: 11-28-[address] PEE LAKHANI . Facility:[facility] Start: 11-24-2022 End: 12-13-[address] PEE LAKHANI . Facility:[facility] Start: 10-27-2022 End: 10-27-[address] ZAIRE ALEGRE . Facility:[facility] Start: 10-23-2022 End: 10-24-2022 [...] Facility:[facility] Start: 01-09-2022 End: 01-09-[address] ZAIRE ALEGRE . 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 Start: 12-02-2024 Plain X-ray of right hip Pee Lakhani MD Work Phone: Start: 12-01-2024 Plain X-ray of right hip Pee Lakhani MD Work Phone: Plan of Treatment Date Care Activity Detail Author Start: 04-24-2025 End: 04-24-2025 Patient encounter procedure 04/24/2025 11:00 AM EDT Office Visit [facility] [address] [place] [id number] Frances Rosen PA [address] [place] [address] [facility] Start: 04-13-2025 End: 04-13-2025 Patient encounter procedure [facility] Comment on above: Arrived Start: 03-06-2025 End: 03-06-2025 Patient encounter procedure 03/06/2025 12:20 PM EDT Office Visit [facility] [address] [place] [id number] Frances Rosen PA [address] [place] [address] Arrived [facility] Comment on above: Arrived Start: 02-25-2025 [facility] Start: 02-24-2025 Referral to infectious diseases physician [facility] Start: 02-23-2025 Hospital admission [facility] Start: 02-23-2025 [facility] Start: 12-22-2024 Plain X-ray of right shoulder XR shoulder RT min 2V* [facility] Start: 12-22-2024 XR Shoulder - right Views [facility] Start: 12-14-2024 [facility] Start: 12-03-2024 Hospital admission [facility] Start: 12-03-2024 Referral to clinical promotions team leader [facility] Start: 12-03-2024 [facility] Start: 12-03-2024 Referral to rehabilitation physician [facility] Start: 12-02-2024 Hospital admission [facility] Start: 12-01-2024 Consultation [facility] Start: 12-01-2024 Replacement of Right Hip Joint with Metal on Polyethylene Synthetic Substitute, Open Approach Replacement of Right Hip Joint with Metal on Polyethylene Synthetic Substitute, Open Approach [facility] Dermatopathology exam Dermatopat hology exam Pathology and Cytology Timed Rash and other nonspecific skin eruption Release Upon Ordering for 1 Occurrences starting 04/13/2025 [facility] Work Phone: Comment on above: Release Upon Ordering for 1 Occurrences starting 04/13/2025 Patient Education [facility] Work Phone: Patient referral [facility] Work Phone: Payers Date Payer Category Payer Self-pay 2022 Private Health Insurance 2018 Medicare MEDICARE [id number] 1965 Unknown [id number] .[id number]. 2. 1965 Unknown [id number] .1.180706.3.579. 2. 1965 Unknown [id number] 2.16.840.1.227800.3.579. 2.593 1965 Unknown [id number] 2.16840.1.387152.3.579. 2.593 1965 Unknown [id number] 2.16.840.1.441194.3.579. 2.593 1965 Unknown [id number] 2.16840.1.677913.3.579. 2.593 1965 Unknown [id number] 2.16840.1.484099.3.579. 2.593 1965 Unknown [id number] 2.840.1.480144.3.579. 2.593 1965 Unknown [id number] 2.840.1.965939.3.579. 2.593 1965 Unknown [id number] 2.840.1.890157.3.579. 2.593 1965 Unknown [id number] 2.840.1.886823.3.579. 2.593 1965 Unknown [id number] 2.840.1.501962.3.579. 2.593 1965 Unknown [id number] 2.840.1.062288.3.579. 2.593 1965 Unknown [id number] 2.840.1.729694.3.579. 2.593 1965 Unknown [id number] 2.840.1.640839.3.579. 2.593 1965 Unknown [id number] 2.840.1.542983.3.579. 2.196 1965 Unknown [id number] 2.16840.1.311526.3.579. 2.196 1965 Unknown [id number] 2.840.1.308943.3.579. 2.1259 1965 Unknown [id number] 2.16.840.1.417747.3.579. 2.1259 1959 Medicare [id number] 1959 Private Health Insurance [id number] 1959 Self-pay [id number] Unknown [id number] 2.16.840.1.029060.3.579. 2.531 Unknown [id number] 2.16.840.1.704757.3.579. 2.531 Unknown [id number] 2.16.840.1.589509.3.579. 2.531 Unknown [id number] 2.16.840.1.638927.3.579. 2.531 Unknown [id number] 2.16.840.1.446483.3.579. 2.531 Social History Date Type Detail Facility Start: 12-04-2024 End: 03-06-2025 Tobacco smoking status NHIS Ex-smoker (finding) [facility] Start: 12-14-2024 End: 12-23-2024 Sex Male (finding) [facility] Start: 1965 Sex Assigned At Male F [facility] Start: 12-03-2024 End: 12-15-2024 SDOH Follow up SDOH Follow up [facility] Work Phone: Tobacco smoking stat [facility] Tobacco smoking consumption unknown [facility] Start: 1965 Sex assigned at Not on file N [facility] Start: 03-06-2025 Gender identity Not on file [facility] History of tobacco use Current smoker [facility] History of tobacco use Cigarette Smoker [facility] Start: 03-06-2025 Tobacco use and exposure Smokeless tobacco non-user [facility] Start: 03-06-2025 End: 04-13-2025 Alcoholic beverage intake Current drinker of alcohol (finding) [facility] Start: 03-06-2025 History of Social function [facility] Medical Equipment Procedure Code Equipment Code Equipment Origin al Text Equipment Identifier Dates 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, modular ([id number] [facility] Start: 12-02-2024 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 Acetabular shell ()[id number] FDA Start: 12-02-2024 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 Ceramic femoral head prosthesis ()[id number] FDA Start: 12-02-2024 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 Orthopaedic bone screw, non-bioabsorbable, sterile ()[id number] FDA Start: 12-02-2024 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 Work Phone: 12-14-2024 Functional status Patient is Pro gressing Toward Baseline [facility] Work Phone: 12-01-2024 Functional status Patient at Baseline [facility] Work Phone: Mental Status Date Assessment Result Facility 02-26-2025 Cognitive function Cognitive Sta tus Patient at Baseline [facility] Work Phone: 12-14-2024 Cognitive function Cognitive Sta tus Patient at Baseline [facility] Work Phone: 12-01-2024 Cognitive function Cognitive Sta tus Patient at Baseline [facility] Work Phone: Clinical Notes 10-24-2022 to 04-13-2025 GISSELLE Vásquez - 04/13/2025 11:10 AM GISSELLE Barrera - 03/06/2025 12:20 PM EDT Note Date & Type Note Facility 04-13-2025 History of Presen t illness Narrative Images from the original note were not included. Follow up Diagnosis: Rash unspecified Location: generalized Last visit: 1 month ago Symptoms: red, itchy Status: some improvement, still itchy Treatments tried and failed: Prednisone and TAC 0.5% Current treatment: Triamcinolone 0.1% cream Ivermectin 3 mg 6 tabs then repeat in 1 week All pertinent medical history, medications, and allergies were reviewed. General Exam: alert, oriented to person, place, and time, normal affect, well appearing uses a crutches Accompanied by spouse A focused exam completed based on patient reported problems, see below: Skin Exam 1. RASH AND OTHER NONSPECIFIC SKIN ERUPTION Left Lower Leg - Anterior [place] patches and plaques Biopsy today, see procedure note. Patient not improved with oral Ivermectin and prednisone. Continue with TAC and oral antihistamine. Follow up in 10-14 days Lesion biopsy - Left Lower Leg - Anterior Type of biopsy: punch Informed consent: discussed and consent obtained Informed consent comment: The risks and benefits were discussed. Risks include, but are not limited to, bleeding, infection, scarring, pain, & nerve damage. An opportunity to ask questions prior to the procedure was permitted and questions were answered. Patient was prepped and draped in usual sterile fashion: Area cleansed with alcohol. Anesthesia: the lesion was anesthetized in a standard fashion Anesthetic: 1% lidocaine w/ epinephrine 1-100,000 buffered w/ 8.4% NaHCO3 Punch size: 4 mm (A biopsy by punch method was performed using a dermal punch) Suture size: 4-0 Suture type: nylon Suture type comment: Hemostasis was achieved with suture. Suture removal (days): 10 Hemostasis achieved with: suture Outcome: patient tolerated procedure well Post-procedure details: sterile dressing applied and wound care instructions given Post-procedure details comment: Emphasized the need to contact clinic for any signs of infection, uncontrollable bleeding, or complications. Dressing type: bandage Additional details: Amount of lidocaine used: 1.0 cc Number of sutures used: 2 Specimen sent for: H&E Photo taken Specimen A - Dermatopathology exam Differential Diagnosis: scabies vs. Stasis dermatitis vs. Atopic dermatitis vs. Contact dermatitis Related Medications ivermectin (Stromectol) 3 MG tablet Take 6 tablets today and repeat in 1 week triamcinolone (Kenalog) 0.1 % cream Apply (1g) to affected areas (legs/arms), up to twice a day when flared, do not use one the face, groin, or underarms, 30 day supply Next Visit: Suture removal documented in this encounter [facility] 03-06-2025 History of Presen t illness Narrative Images from the original note were not included. Rash Location: generalized Duration: weeks Severity: severe Quality: itchy, denies burning Modifying Factors: worse with a fan blowing directly on it Associated symptoms: redness, bumps Treatments tried: none Current treatments: Prednisone started today and TAC 0.5%-helps some New patient All pertinent medical history, medications, and allergies were reviewed. General Exam: alert, oriented to person, place, and time, normal affect, well appearing uses crutches Accompanied by spouse A focused exam completed based on patient reported problems, see below: Skin Exam 1. RASH AND OTHER NONSPECIFIC SKIN ERUPTION Generalized Scattered excoriated erythematous papules Suspicious of scabies vs. Contact dermatitis vs. Drug exanthem. However, distribution and symptoms are most suspicious for scabies today. The patient has recently had a hip surgery prior to onset of rash with a hospital stay and weekly PT. Rash onset occurred prior to second hip surgery which they cannot move forward with until it's treated. The patient was counseled on scabies. It was explained that an itchy rash will occur when the skin reacts to the scabies mite. It was stressed that scabies is contagious and is spread by direct skin contact or by sharing towels, bedding, or clothing of an infected person. Treatment was explained which involves the application of a cream to the entire body and/or oral medication. Start oral Ivermectin, taking 6 tablets today and then repeat in 1 week. Follow up in 3-4 weeks. Also, continue prednisone taper and TAC 0.1% bid on areas until clear. Will follow up in 3-4 weeks. If not improving, will plan to biopsy. ivermectin (Stromectol) 3 MG tablet Take 6 tablets today and repeat in 1 week triamcinolone (Kenalog) 0.1 % cream Apply (1g) to affected areas (legs/arms), up to twice a day when flared, do not use one the face, groin, or underarms, 30 day supply Next Visit: 3-4 weeks documented in this encounter [facility] 02-26-2025 Progress note Note Date/Time February 26, 2025 9:22am [facility] [address] [place] [address] Infect. Disease Progress Note Signed Patient: Rehan Trejo MR#: [id number] : 1965 Acct:[id number] Age/Sex: 60 / M Adm Date: 5 Loc: 4N Room: 3R6688-4 Type: ADM INOo Attending Dr: Nishant Ceja DO Copies to: ~ Date of Service: 02/26/2025 Subjective Interval history: Doing well without new issues overnight. Dc planning for today. Exam Physical Exam Vital Signs: Temp Pulse Resp BP Pulse Ox O2 Del Method 97.6 F 71 15 138/89 95 Room Air 02/26/25 04:00 02/26/25 04:00 02/26/25 04:00 02/26/25 04:00 02/26/25 04:00 02/26/25 04:00 Const General: cooperative and comfortable Orientation: oriented x3 HEENT Head: normal to inspection Ears: hearing grossly normal bilaterally Mouth: oral mucosae normal Eyes General: appearance normal, both eyes and all related structures Neck Neck: normal visual inspection Chest Chest palpation & inspection: normal inspection of the chest Resp Effort & Inspection: normal respiratory effort Cardio Rhythm: regular rhythm GI Inspection: normal to inspection Palpation: soft and nontender Skin General: rashes and/or lesions noted Other: RLE with improvement seen. Topical steroids. Neuro General: patient oriented x3 Extrem General: abnormal to inspection (see above) Allergies and Medications Allergies and Active Meds Allergies Penicillins Allergy (Severe, Verified 02/24/25 07:57) Swelling of Throat, Rash procaine (From Novocain) Allergy (Verified 02/24/25 07:57) Unknown Reaction strawberry Allergy (Verified 02/24/25 07:57) Hives Active Medications Acetaminophen (Acetaminophen 500 Mg Tablet) 1,000 mg PO Q8H [facility] Stop: 02/23/26 15:44 Last Admin: 02/26/25 04:31 Dose: 1,000 mg Ascorbic Acid (Ascorbic Acid 500 Mg Tablet) 500 mg PO BID.WITH.MEALS [facility]STOPHER Stop: 02/23/26 16:59 Last Admin: 02/25/25 17:01 Dose: 500 mg Aspirin (Aspirin 81 Mg Tablet.) 81 mg PO BID [facility] Stop: 02/23/26 20:59 Last Admin: 02/25/25 20:58 Dose: 81 mg Atorvastatin Calcium (Atorvastatin 10 Mg Tablet) 10 mg PO HS [facility]STOPHER Stop: 02/25/26 21:59 Last Admin: 02/25/25 21:00 Dose: 10 mg Calcium Carbonate (Calcium Carbonate/Vitamin D3 500 Mg/200 Unit Tablet) 1 tab PO BID [facility] Stop: 02/25/26 08:59 Last Admin: 02/25/25 20:58 Dose: 1 tab Diphenhydramine HCl (Diphenhydramine 25 Mg Capsule) 25 mg PO Q6H PRN PRN Reason: Itching Stop: 02/23/26 15:37 Last Admin: 02/25/25 21:07 Dose: 25 mg Docusate Sodium (Docusate 100 Mg Capsule) 100 mg PO BID [facility]STOPHER Stop: 02/23/26 20:59 Last Admin: 02/25/25 20:58 Dose: Not Given Ferrous Sulfate (Ferrous Sulfate 324 Mg Tablet.) 324 mg PO BID.WITH.MEALS [facility] Stop: 02/23/26 16:59 Last Admin: 02/25/25 17:01 Dose: 324 mg Isosorbide Mononitrate (Isosorbide Mononitrate 24hr Er 30 Mg Tab.Er.24h) 30 mg PO QAM [facility] Stop: 02/25/26 08:59 Last Admin: 02/25/25 08:06 Dose: 30 mg Levothyroxine Sodium (Levothyroxine 125 Mcg Tablet) 250 mcg PO DAILY@0630 [facility] Stop: 02/25/26 09:59 Last Admin: 02/26/25 04:31 Dose: 250 mcg Melatonin (Melatonin 3 Mg Tablet) 12 mg PO QHS [facility] Stop: 02/25/26 21:59 Last Admin: 02/25/25 20:59 Dose: 12 mg Metoprolol Tartrate (Metoprolol Tartrate 50 Mg Tablet) 50 mg PO BID [facility] Stop: 02/25/26 08:59 Last Admin: 02/25/25 20:58 Dose: 50 mg Mineral Oil (Mineral Oil ([place]) 1 Each Enema) 1 each MO ONCE PRN PRN Reason: Constipation Morphine Sulfate (Morphine Sulfate 12hr Er 15 Mg Tablet.Er) 15 mg PO Q12H PRN PRN Reason: Pain Naloxone HCl (Naloxone Hcl 0.4 Mg/Ml Vial) 0.4 mg IV-PUSH Q2M PRN PRN Reason: Opioid Reversal Stop: 02/23/26 15:37 Ondansetron HCl (Ondansetron Odt 4 Mg Tab.Rapdis) 8 mg PO TID PRN PRN Reason: Nausea Stop: 02/23/26 15:37 Last Admin: 02/25/25 09:15 Dose: 8 mg Oxycodone HCl (Oxycodone Ir 5 Mg Tablet) 5 mg PO Q4HR PRN PRN Reason: Pain Scale 6 - 10 Last Admin: 02/25/25 20:58 Dose: 5 mg Polyethylene Glycol (Polyethylene Glycol 3350 17 Gm Powd.Pack) 17 gm PO DAILY [facility]STOPHER Stop: 03/03/25 08:59 Last Admin: 02/25/25 08:07 Dose: Not Given Prochlorperazine Maleate (Prochlorperazine Maleate 5 Mg Tablet) 10 mg PO Q6H PRN PRN Reason: Nausea Stop: 02/23/26 15:37 Senna/Docusate Sodium (Sennosides/Docusate 8.6-50mg 1 Tab Tablet) 2 tab PO DAILY [facility]HER Stop: 03/26/25 08:59 Last Admin: 02/25/25 08:07 Dose: Not Given Sodium Chloride (Sodium Chloride 0.9 % 10 Ml Syringe) 0 ml IV-PUSH PRN PRN PRN Reason: Flush Stop: 02/24/26 07:30 Tamsulosin HCl (Tamsulosin 0.4 Mg Cap.Er.24h) 0.4 mg PO DAILY [facility]STOPHER Stop: 02/25/26 08:59 Last Admin: 02/25/25 08:06 Dose: 0.4 mg Temazepam (Temazepam 7.5 Mg Capsule) 7.5 mg PO QHS PRN PRN Reason: Insomnia Stop: 08/22/25 15:37 Last Admin: 02/25/25 21:00 Dose: 7.5 mg Tizanidine HCl (Tizanidine 4 Mg Tablet) 4 mg PO HS [facility]HER Stop: 02/25/26 21:59 Last Admin: 02/25/25 20:59 Dose: 4 mg Topiramate (Topiramate 100 Mg Tablet) 100 mg PO QAM [facility] Stop: 02/25/26 08:59 Last Admin: 02/25/25 08:14 Dose: 100 mg Topiramate (Topiramate 100 Mg Tablet) 200 mg PO HS [facility]HER Stop: 02/25/26 21:59 Last Admin: 02/25/25 20:59 Dose: 200 mg Tramadol HCl (Tramadol 50 Mg Tablet) 50 mg PO Q6H PRN PRN Reason: Pain Scale 1 - 5 Stop: 08/22/25 15:37 Last Admin: 02/25/25 09:15 Dose: 50 mg Triamcinolone Acetonide (Triamcinolone 0.5% Cream 15 Gm Tube) 1 applic TOPICAL BID [facility] Stop: 02/24/26 11:29 Last Admin: 02/25/25 21:01 Dose: 1 applic A&P - Infectious Disease Assessment/Plan (1) Stasis dermatitis: Plan Improved on triamcinolone cream and to use on the RLE BID for 2 weeks. Avoid scratching. Documented By: Ammon Huang MD 02/26/25917 Signed By: <Electronically signed by MD Ammon Huang> 02/26/25921 [facility] Work Phone: 1([phone]) 230-673908-14-2025 Progress note Author Nishant Ceja [facility] Note Date/Time February 26, 2025 9: 04am [facility] [address] [place] [address] Orthopedic Progress Note Signed Patient: Rehan Trejo MR#: [id number] : 1965 Acct:[id number] Age/Sex: 60 / M Adm Date: 5 Loc: 4N Room: [address] [place] [address] Type: ADM INOo Attending Dr: Nishant Ceja DO Copies to: ~ Date of Service: 02/26/2025 Subjective Subjective Interval History: No acute events. Continues to improve Exam Physical Exam Vital Signs: Temp Pulse Resp BP Pulse Ox O2 Del Method 97.6 F 71 15 138/89 95 Room Air 02/26/25 04:00 02/26/25 04:00 02/26/25 04:00 02/26/25 04:00 02/26/25 04:00 02/26/25 04:00 Narrative: Patient seen evaluated on RNF. He is in no acute distress. Right lower extremity evaluated. Less redness and swelling noted in the leg with only mild remaining around the ankle. Foot is without issue. This is mildly tender to palpation. He is able to move the ankle and knee without issue. Has normal sensation in the foot Assessment / Plan Assessment and plan (1) Cellulitis of right lower extremity: Code(s): L03.115 - Cellulitis of right lower limb Plan Right lower extremity cellulitis versus dermatitis He was started on topical steroids as Dr. Huang felt this was less likely to be cellulitis. He does show improvement on physical exam today. Denies any itching today. We will provide prescription for triamcinolone topically. Plan to do this until leg is fully improved. Will see back as outpatient for evaluation in preparation for left total hip arthroplasty once this is cleared up. Wasunable to DC due to social situation yesterday. DC today Documented By: Nishant Ceja DO 02/26/2536 Signed By: <Electronically signed by Nishant Ceja DO> 02/26/25 0904 [facility] Work Phone: 1(727) 467-872508-14-2025 Discharge summary Author Nishant Ceja [facility] Note Date/Time February 26, 2025 8: 40am [facility] [address] [place] [address] Discharge Summary Signed Patient: Rehan Trejo MR#: [id number] : 1965 Acct:[id number] Age/Sex: 60 / M Adm Date: 5 Loc: 4N Room: 6R4423-[address]: Nishant Ceja DO Copies to: MD Nishant Bagley DO~ Providers Date of Discharge: 02/26/25 Discharging Provider: Nishant Ceja Primary Care Provider: Pee Lakhani Consults: 02/24/25 10:24 Consult to Infectious Diseases Routine Comment: Consulting Provider: [facility] - Infectious Disease Reason For Exam: RLE Cellulitis Has Provider Been Notified: Yes Date of Notification: 02/24/25 Time of Notification: 10:25 Discharge Diagnosis (1) Cellulitis of right lower extremity: Final Diagnosis Final Discharge Diagnosis: Right lower extremity dermatitis Summary Hospital Course Hospital course: 60-year-old male who was brought to the hospital for total hip arthroplasty on the left side and found to have right lower extremity redness and swelling concern for cellulitis. Was evaluated in conjunction with infectious disease who treated for dermatitis with improvement. Will continue to treat dermatitis until improved prior to total hip arthroplasty. Patient was stable for discharge and discharged home on hospital day 2 Status at Discharge Functional status at discharge: uses cane/walker Overall status at discharge: patient is not back to baseline Time Spent with Patient Time spent providing/coordinating discharge services (# min): 15 Surgeries and Procedures Operation Date: 02/24/25 09:25 Actual Procedures p OR Left Total Hip Arthro(Left) - Nishant Ceja, DO Discharge Plan Discharge Plan Patient Disposition: Home Additional Instructions: Continue topical cream for right leg as prescribed. We will plan to re evaluate skin next week to look for improvement. We will reschedule your left hip replacement as soon as we have the right leg improved. Questions or Problems: If you have any questions, problems, or confusion about your recovery please feel free to call our office at [phone]. You are a priority of ours and we will not be upset with you if you call. We would much rather you call to confirmaspects of your recovery process as opposed to possibly hindering your recovery with inappropriate care. We are committed to providing you with the best care possible. Dr. Nishant Ceja [facility] [address] [place] [address] [email or web address] Instructions: Know your Meds, Drugs, Alcohol & Your Well-Being Prescriptions: New triamcinolone acetonide 0.5 % cream 1 applic topical BID 30 Days Qty: 15 2RF Continued metoprolol tartrate 50 mg tablet 50 mg PO BID atorvastatin 10 mg tablet 10 mg PO HS tizanidine 4 mg tablet 4 mg PO HS isosorbide mononitrate 30 mg tablet extended release 24 hr 30 mg PO .am topiramate 100 mg tablet 200 mg PO HS diphenhydramine HCl [Allergy (diphenhydramine)] 25 mg capsule 25 mg PO QHS melatonin 12 mg tablet 12 mg PO QHS levothyroxine 125 mcg tablet 250 mcg PO .am tamsulosin 0.4 mg capsule 0.4 mg PO DAILY topiramate [Topamax] 100 mg tablet 100 mg PO .am acetaminophen 500 mg Tablet 1,000 mg PO Q8H PRN (Reason: pain) 30 Days Qty: 180 0RF ascorbic acid (vitamin C) [Vitamin C] 500 mg Tablet 500 mg PO BID.WITH.MEALS 7 Days Qty: 14 0RF diclofenac sodium 75 mg tablet,delayed release (DR/EC) 75 mg PO DAILY Qty: 30 0RF calcium carbonate-vitamin D3 [Calcium 600 with Vitamin D3] 600 mg-12.5 mcg (500 unit) capsule 1 cap PO BID Qty: 60 0RF docusate sodium [Colace] 100 mg capsule 100 mg PO BID 14 Days Qty: 28 0RF aspirin 81 mg tablet,chewable 81 mg PO BID 37 Days Qty: 74 0RF oxycodone 5 mg tablet 5 mg PO Q4H PRN (Reason: Pain) 7 Days Qty: 42 0RF Rx Instructions: [facility] #42 DO NOT FILL UNTIL 02/23/25 doxycycline hyclate 100 mg tablet 100 mg PO BID 7 Days Qty: 14 0RF cyclobenzaprine 10 mg tablet 5 - 10 mg PO Q8H 14 Days Qty: 30 0RF tramadol 50 mg tablet 50 mg PO Q4H PRN (Reason: Pain) 7 Days Qty: 42 0RF Rx Instructions: [facility] #42 okay to fill pre op 02/11/2025 Follow Up: Nishant Ceja DO [Active Staff, Orthopedics] - 03/09/25 11:00 am Exam Physical Exam Vital Signs: Temp Pulse Resp BP Pulse Ox O2 Del Method 97.6 F 71 15 138/89 95 Room Air 02/26/25 04:00 02/26/25 04:00 02/26/25 04:00 02/26/25 04:00 02/26/25 04:00 02/26/25 04:00 Narrative: Patient seen evaluated on RNF. He is in no acute distress. Right lower extremity evaluated. Less redness and swelling noted in the leg. Foot is without issue. This is mildly tender to palpation. He is able to move the ankle and knee without issue. Has normal sensation in the foot Documented By: Nishant Ceja DO 02/26/25 0838 Signed By: <Electronically signed by Nishant Ceja DO> 02/26/25 0840 [facility] Work Phone: 1(617) 869-969308-14-2025 [place] [address] Infect. Disease Progress Note Signed Patient: Rehan Trejo MR#: [id number] : 1965 Acct:[id number] Age/Sex: 60 / M Adm Date: 5 Loc: Room: [address] [place] [address] Type: ADM INOo Attending Dr: Nishant Ceja DO Copies to: ~ Date of Service: 02/26/2025 Subjective Interval history: Doing well without new issues overnight. Dc planning for today. Exam Physical Exam Vital Signs: Temp Pulse Resp BP Pulse Ox O2 Del Method 97.6 F 71 15 138/89 95 Room Air 02/26/25 04:00 02/26/25 04:00 02/26/25 04:00 02/26/25 04:00 02/26/25 04:00 02/26/25 04:00 Const General: cooperative and comfortable Orientation: oriented x3 HEENT Head: normal to inspection Ears: hearing grossly normal bilaterally Mouth: oral mucosae normal Eyes General: appearance normal, both eyes and all related structures Neck Neck: normal visual inspection Chest Chest palpation & inspection: normal inspection of the chest Resp Effort & Inspection: normal respiratory effort Cardio Rhythm: regular rhythm GI Inspection: normal to inspection Palpation: soft and nontender Skin General: rashes and/or lesions noted Other: RLE with improvement seen. Topical steroids. Neuro General: patient oriented x3 Extrem General: abnormal to inspection (see above) Allergies and Medications Allergies and Active Meds Allergies Penicillins Allergy (Severe, Verified 02/24/25 07:57) Swelling of Throat, Rash procaine (From Novocain) Allergy (Verified 02/24/25 07:57) Unknown Reaction strawberry Allergy (Verified 02/24/25 07:57) Hives Active Medications Acetaminophen (Acetaminophen 500 Mg Tablet) 1,000 mg PO Q8H [facility] Stop: 02/23/26 15:44 Last Admin: 02/26/25 04:31 Dose: 1,000 mg Ascorbic Acid (Ascorbic Acid 500 Mg Tablet) 500 mg PO BID.WITH.MEALS [facility] Stop: 02/23/26 16:59 Last Admin: 02/25/25 17:01 Dose: 500 mg Aspirin (Aspirin 81 Mg Tablet.) 81 mg PO BID [facility] Stop: 02/23/26 20:59 Last Admin: 02/25/25 20:58 Dose: 81 mg Atorvastatin Calcium (Atorvastatin 10 Mg Tablet) 10 mg PO HS [facility] Stop: 02/25/26 21:59 Last Admin: 02/25/25 21:00 Dose: 10 mg Calcium Carbonate (Calcium Carbonate/Vitamin D3 500 Mg/200 Unit Tablet) 1 tab PO BID [facility] Stop: 02/25/26 08:59 Last Admin: 02/25/25 20:58 Dose: 1 tab Diphenhydramine HCl (Diphenhydramine 25 Mg Capsule) 25 mg PO Q6H PRN PRN Reason: Itching Stop: 02/23/26 15:37 Last Admin: 02/25/25 21:07 Dose: 25 mg Docusate Sodium (Docusate 100 Mg Capsule) 100 mg PO BID [facility] Stop: 02/23/26 20:59 Last Admin: 02/25/25 20:58 Dose: Not Given Ferrous Sulfate (Ferrous Sulfate 324 Mg Tablet.) 324 mg PO BID.WITH.MEALS [facility] Stop: 02/23/26 16:59 Last Admin: 02/25/25 17:01 Dose: 324 mg Isosorbide Mononitrate (Isosorbide Mononitrate 24hr Er 30 Mg Tab.Er.24h) 30 mg PO QAM [facility] Stop: 02/25/26 08:59 Last Admin: 02/25/25 08:06 Dose: 30 mg Levothyroxine Sodium (Levothyroxine 125 Mcg Tablet) 250 mcg PO DAILY@0630 [facility] Stop: 02/25/26 09:59 Last Admin: 02/26/25 04:31 Dose: 250 mcg Melatonin (Melatonin 3 Mg Tablet) 12 mg PO QHS [facility] Stop: 02/25/26 21:59 Last Admin: 02/25/25 20:59 Dose: 12 mg Metoprolol Tartrate (Metoprolol Tartrate 50 Mg Tablet) 50 mg PO BID [facility] Stop: 02/25/26 08:59 Last Admin: 02/25/25 20:58 Dose: 50 mg Mineral Oil (Mineral Oil ([place]) 1 Each Enema) 1 each MO ONCE PRN PRN Reason: Constipation Morphine Sulfate (Morphine Sulfate 12hr Er 15 Mg Tablet.Er) 15 mg PO Q12H PRN PRN Reason: Pain Naloxone HCl (Naloxone Hcl 0.4 Mg/Ml Vial) 0.4 mg IV-PUSH Q2M PRN PRN Reason: Opioid Reversal Stop: 02/23/26 15:37 Ondansetron HCl (Ondansetron Odt 4 Mg Tab.Rapdis) 8 mg PO TID PRN PRN Reason: Nausea Stop: 02/23/26 15:37 Last Admin: 02/25/25 09:15 Dose: 8 mg Oxycodone HCl (Oxycodone Ir 5 Mg Tablet) 5 mg PO Q4HR PRN PRN Reason: Pain Scale 6 - 10 Last Admin: 02/25/25 20:58 Dose: 5 mg Polyethylene Glycol (Polyethylene Glycol 3350 17 Gm Powd.Pack) 17 gm PO DAILY [facility] Stop: 03/03/25 08:59 Last Admin: 02/25/25 08:07 Dose: Not Given Prochlorperazine Maleate (Prochlorperazine Maleate 5 Mg Tablet) 10 mg PO Q6H PRN PRN Reason: Nausea Stop: 02/23/26 15:37 Senna/Docusate Sodium (Sennosides/Docusate 8.6-50mg 1 Tab Tablet) 2 tab PO DAILY [facility] Stop: 03/26/25 08:59 Last Admin: 02/25/25 08:07 Dose: Not Given Sodium Chloride (Sodium Chloride 0.9 % 10 Ml Syringe) 0 ml IV-PUSH PRN PRN PRN Reason: Flush Stop: 02/24/26 07:30 Tamsulosin HCl (Tamsulosin 0.4 Mg Cap.Er.24h) 0.4 mg PO DAILY [facility] Stop: 02/25/26 08:59 Last Admin: 02/25/25 08:06 Dose: 0.4 mg Temazepam (Temazepam 7.5 Mg Capsule) 7.5 mg PO QHS PRN PRN Reason: Insomnia Stop: 08/22/25 15:37 Last Admin: 02/25/25 21:00 Dose: 7.5 mg Tizanidine HCl (Tizanidine 4 Mg Tablet) 4 mg PO HS [facility] Stop: 02/25/26 21:59 Last Admin: 02/25/25 20:59 Dose: 4 mg Topiramate (Topiramate 100 Mg Tablet) 100 mg PO QAM [facility] Stop: 02/25/26 08:59 Last Admin: 02/25/25 08:14 Dose: 100 mg Topiramate (Topiramate 100 Mg Tablet) 200 mg PO HS [facility] Stop: 02/25/26 21:59 Last Admin: 02/25/25 20:59 Dose: 200 mg Tramadol HCl (Tramadol 50 Mg Tablet) 50 mg PO Q6H PRN PRN Reason: Pain Scale 1 - 5 Stop: 08/22/25 15:37 Last Admin: 02/25/25 09:15 Dose: 50 mg Triamcinolone Acetonide (Triamcinolone 0.5% Cream 15 Gm Tube) 1 applic TOPICAL BID [facility] Stop: 02/24/26 11:29 Last Admin: 02/25/25 21:01 Dose: 1 applic A&P - Infectious Disease Assessment/Plan (1) Stasis dermatitis: Plan Improved on triamcinolone cream and to use on the RLE BID for 2 weeks. Avoid scratching. Documented By: Ammon Huang MD 02/26/25917 Signed By: 02/26/25921 [facility]08-14-2025 [place] [address] Orthopedic Progress Note Signed Patient: Rehan Trejo MR#: [id number] : 1965 Acct:[id number] Age/Sex: 60 / M Adm Date: 5 Loc: 4N Room: 5S5516-2 Type: ADM INOo Attending Dr: Nishant Ceja DO Copies to: ~ Date of Service: 02/26/2025 Subjective Subjective Interval History: No acute events. Continues to improve Exam Physical Exam Vital Signs: Temp Pulse Resp BP Pulse Ox O2 Del Method 97.6 F 71 15 138/89 95 Room Air 02/26/25 04:00 02/26/25 04:00 02/26/25 04:00 02/26/25 04:00 02/26/25 04:00 02/26/25 04:00 Narrative: Patient seen evaluated on RNF. He is in no acute distress. Right lower extremity evaluated. Less redness and swelling noted in the leg with only mild remaining around the ankle. Foot is without issue. This is mildly tender to palpation. He is able to move the ankle and knee without issue. Has normal sensation in the foot Assessment / Plan Assessment and plan (1) Cellulitis of right lower extremity: Code(s): L03.115 - Cellulitis of right lower limb Plan Right lower extremity cellulitis versus dermatitis He was started on topical steroids as Dr. Huang felt this was less likely to be cellulitis. He doesshow improvement on physical exam today. Denies any itching today. We will provide prescription fortriamcinolone topically. Plan to do this until leg is fully improved. Will see back as outpatient for evaluation in preparation for left total hip arthroplasty once this is cleared up. Wasunable to DC due to social situation yesterday. [place] today Documented By: Nishant Ceja DO 02/26/25 0836 Signed By: 02/26/25 0904 [facility]08-14-2025 [id number] Discharge Summary Signed Patient: Rehan Trejo MR#: [id number] : 1965 Acct:[id number] Age/Sex: 60 / M Adm Date: 5 Loc: 4N Room: 4X4280-[address]: Nishant Ceja DO Copies to: MD Nishant Bagley DO~ Providers Date of Discharge: 02/26/25 Discharging Provider: Nishant Ceja Primary Care Provider: Pee Lakhani Consults: 02/24/25 10:24 Consult to Infectious Diseases Routine Comment: Consulting Provider: [facility] - Infectious Disease Reason For Exam: RLE Cellulitis Has Provider Been Notified: Yes Date of Notification: 02/24/25 Time of Notification: 10:25 Discharge Diagnosis (1) Cellulitis of right lower extremity: Final Diagnosis Final Discharge Diagnosis: Right lower extremity dermatitis Summary Hospital Course Hospital course: 60-year-old male who was brought to the hospital for total hip arthroplasty on the left side and found to have right lower extremity redness and swelling concern for cellulitis. Was evaluated in conjunction with infectious disease who treated for dermatitis with improvement. Will continue to treat dermatitis until improved prior to total hip arthroplasty. Patient was stable for discharge and discharged home on hospital day 2 Status at Discharge Functional status at discharge: uses cane/walker Overall status at discharge: patient is not back to baseline Time Spent with Patient Time spent providing/coordinating discharge services (# min): 15 Surgeries and Procedures Operation Date: 02/24/25 09:25 Actual Procedures p OR Left Total Hip Arthro(Left) - Nishant Ceja, DO Discharge Plan Discharge Plan Patient Disposition: Home Additional Instructions: Continue topical cream for right leg as prescribed. We will plan to re evaluate skin next week to look for improvement. We will reschedule your left hip replacement as soon as we have the right leg improved. Questions or Problems: If you have any questions, problems, or confusion about your recovery please feel free to call our office at [phone]. You are a priority of ours and we will not be upset with you if you call. Wewould much rather you call to confirmaspects of your recovery process as opposed to possibly hindering your recovery with inappropriate care. We are committed to providing you with the best care possible. Dr. Nishant Ceja [facility] [address] [place] [address] [email or web address] Instructions: Know your Meds, Drugs, Alcohol & Your Well-Being Prescriptions: New triamcinolone acetonide 0.5 % cream 1 applic topical BID 30 Days Qty: 15 2RF Continued metoprolol tartrate 50 mg tablet 50 mg PO BID atorvastatin 10 mg tablet 10 mg PO HS tizanidine 4 mg tablet 4 mg PO HS isosorbide mononitrate 30 mg tablet extended release 24 hr 30 mg PO .am topiramate 100 mg tablet 200 mg PO HS diphenhydramine HCl [Allergy (diphenhydramine)] 25 mg capsule 25 mg PO QHS melatonin 12 mg tablet 12 mg PO QHS levothyroxine 125 mcg tablet 250 mcg PO .am tamsulosin 0.4 mg capsule 0.4 mg PO DAILY topiramate [Topamax] 100 mg tablet 100 mg PO .am acetaminophen 500 mg Tablet 1,000 mg PO Q8H PRN (Reason: pain) 30 Days Qty: 180 0RF ascorbic acid (vitamin C) [Vitamin C] 500 mg Tablet 500 mg PO BID.WITH.MEALS 7 Days Qty: 14 0RF diclofenac sodium 75 mg tablet,delayed release (DR/EC) 75 mg PO DAILY Qty: 30 0RF calcium carbonate-vitamin D3 [Calcium 600 with Vitamin D3] 600 mg-12.5 mcg (500 unit) capsule 1 cap PO BID Qty: 60 0RF docusate sodium [Colace] 100 mg capsule 100 mg PO BID 14 Days Qty: 28 0RF aspirin 81 mg tablet,chewable 81 mg PO BID 37 Days Qty: 74 0RF oxycodone 5 mg tablet 5 mg PO Q4H PRN (Reason: Pain) 7 Days Qty: 42 0RF Rx Instructions: [facility] #42 DO NOT FILL UNTIL 02/23/25 doxycycline hyclate 100 mg tablet 100 mg PO BID 7 Days Qty: 14 0RF cyclobenzaprine 10 mg tablet 5 - 10 mg PO Q8H 14 Days Qty: 30 0RF tramadol 50 mg tablet 50 mg PO Q4H PRN (Reason: Pain) 7 Days Qty: 42 0RF Rx Instructions: [facility] #42 okay to fill pre op 02/11/2025 Follow Up: Nishant Ceja DO [Active Staff, Orthopedics] - 03/09/25 11:00 am Exam Physical Exam Vital Signs: Temp Pulse Resp BP Pulse Ox O2 Del Method 97.6 F 71 15 138/89 95 Room Air 02/26/25 04:00 02/26/25 04:00 02/26/25 04:00 02/26/25 04:00 02/26/25 04:00 02/26/25 04:00 Narrative: Patient seen evaluated on RNF. He is in no acute distress. Right lower extremity evaluated. Less redness and swelling noted in the leg. Foot is without issue.This is mildly tender to palpation. He is able to move the ankle and knee without issue. Has normalsensation in the foot Documented By: Nishant Ceja DO 02/26/2538 Signed By: 02/26/25 0840 [facility]08-13-2025 Progress note Author Nishant Ceja [facility] Note Date/Time February 25, 2025 10 :09am [facility] [address] [place] [id number] Orthopedic Progress Note Signed Patient: Rehan Trejo MR#: [id number] : 1965 Acct:[id number] Age/Sex: 60 / M Adm Date: 5 Loc: 4N Room: [address] [place] [address] Type: ADM INOo Attending Dr: Nishant Ceja DO Copies to: ~ Date of Service: 02/25/2025 Subjective Subjective Interval History: Patient doing okay this morning. Complaining of headache. Right lower extremity does feel improved after topical steroids Exam Physical Exam Vital Signs: Temp Pulse Resp BP Pulse Ox O2 Del Method 97.7 F 72 16 166/92 H 100 Room Air 02/25/25 08:00 02/25/25 08:00 02/25/25 08:00 02/25/25 08:00 02/25/25 08:00 02/25/25 08:00 Narrative: Patient seen evaluated in an operative area. He is in no acute distress. Right lower extremity evaluated. Less redness and swelling noted in the leg. Foot is without issue. This is mildly tender to palpation. He is able to move the ankle and knee without issue. Has normal sensation in the foot Objective Labs Labs: Laboratory Results - last 24 hr 02/24/25 02/25/25 10:54 04:25 Corrected WBC 8.8 6.9 Uncorrected WBC Count 8.8 6.9 RBC 4.20 4.31 Hgb 14.0 14.3 Hct 42.1 42.9 MCV 100.2 99.5 MCH 33.4 33.2 MCHC 33.3 33.4 RDW 13.1 13.5 Plt Count 186 164 MPV 8.6 8.5 Neut % (Auto) 53.6 49.4 Lymph % (Auto) 29.7 31.0 [place] % (Auto) 8.8 10.5 Eos % (Auto) 6.7 8.6 Baso % (Auto) 1.2 0.5 Nucleat RBC Rel Count 0.2 0.1 Neut # (Auto) 4.7 3.4 Lymph # (Auto) 2.6 2.1 [place] # (Auto) 0.8 0.7 Eos # (Auto) 0.6 H 0.6 H Baso # (Auto) 0.1 0.0 PHA Creatinine Clear 148.04 123.16 Sodium 127 L 130 L Potassium 4.1 4.0 Chloride 98 102 Carbon Dioxide 24.2 19.9 L Anion Gap 8.9 12.1 BUN 7 11 Creatinine 0.63 L 0.76 Est GFR (CKD-EPI) > 60.0 > 60.0 Glucose 88 77 Calcium 8.7 8.2 L Assessment / Plan Assessment and plan (1) Cellulitis of right lower extremity: Code(s): L03.115 - Cellulitis of right lower limb Plan Right lower extremity cellulitis versus dermatitis Evaluated with infectious disease yesterday do appreciate input. He was startedon topical steroids as Dr. Huang felt this was less likely to be cellulitis. Hedoes show improvement on physical exam today. Denies any itching today. We will provide prescription for triamcinolone topically. Plan to do this until leg is fully improved. Will see back as outpatient for evaluation in preparation for left total hip arthroplasty once this is cleared up. Documented By: Nishant Ceja DO 02/25/25 1007 Signed By: <Electronically signed by Nishant Ceja DO> 02/25/25 1009 [facility] Work Phone: [phone]) 884-191508-13-2025 Progress note Author Ammon Huang [facility] Note Date/Time February 25, 2025 8: 54am [facility] [address] [place] [address] Infect. Disease Progress Note Signed Patient: Rehan Trejo MR#: [id number] : 1965 Acct:[id number] Age/Sex: 60 / M Adm Date: 5 Loc: 4N Room: 4C1463-5 Type: ADM INOo Attending Dr: Nishant Ceja DO Copies to: ~ Date of Service: 02/25/2025 Subjective Interval history: Overnight right lower extremity is much less pruritic. Triamcinolone cream started yesterday. Patient does not feel the need to scratch. Exam Physical Exam Vital Signs: Temp Pulse Resp BP Pulse Ox O2 Del Method 97.7 F 72 16 166/92 H 100 Room Air 02/25/25 08:00 02/25/25 08:00 02/25/25 08:00 02/25/25 08:00 02/25/25 08:00 02/25/25 08:00 Const General: cooperative and comfortable Orientation: oriented x3 HEENT Head: normal to inspection Ears: hearing grossly normal bilaterally Mouth: oral mucosae normal Eyes General: appearance normal, both eyes and all related structures Neck Neck: normal visual inspection Chest Chest palpation & inspection: normal inspection of the chest Resp Effort & Inspection: normal respiratory effort Cardio Rhythm: regular rhythm GI Inspection: normal to inspection Palpation: soft and nontender Skin General: rashes and/or lesions noted Other: Excoriated lesions noted on his right lower extremity. Some erythema noted around these lesions and it is slightly warm to the touch. With leg elevation some of the erythema does dissipate. I do not see any purulence coming from these wounds and these wounds his state ooze yellow fluid when he scratchesthem open. The foot does have onychomycotic changes without skin breakdown or evidence of tinea pedis. The foot has no erythema on currently. The excoriatedlesions are only noted on the anterior leg on the right and posteriorly there isno skin lesions Extrem General: abnormal to inspection (see above) Objective Labs CBC/BMP: CBC, BMP 02/24/25 02/25/25 10:54 04:25 Corrected WBC 8.8 6.9 Uncorrected WBC Count 8.8 6.9 RBC 4.20 4.31 Hgb 14.0 14.3 Hct 42.1 42.9 Plt Count 186 164 Sodium 127 L 130 L Potassium 4.1 4.0 Chloride 98 102 Carbon Dioxide 24.2 19.9 L Anion Gap 8.9 12.1 BUN 7 11 Creatinine 0.63 L 0.76 Calcium 8.7 8.2 L Labs: 02/24/25 02/25/25 10:54 04:25 BUN 7 11 Creatinine 0.63 L 0.76 Allergies and Medications Allergies and Active Meds Allergies Penicillins Allergy (Severe, Verified 02/24/25 07:57) Swelling of Throat, Rash procaine (From Novocain) Allergy (Verified 02/24/25 07:57) Unknown Reaction strawberry Allergy (Verified 02/24/25 07:57) Hives Active Medications Acetaminophen (Acetaminophen 500 Mg Tablet) 1,000 mg PO Q8H [facility] Stop: 02/23/26 15:44 Last Admin: 02/25/25 06:39 Dose: 1,000 mg Ascorbic Acid (Ascorbic Acid 500 Mg Tablet) 500 mg PO BID.WITH.MEALS [facility] Stop: 02/23/26 16:59 Last Admin: 02/25/25 08:05 Dose: 500 mg Aspirin (Aspirin 81 Mg Tablet.) 81 mg PO BID [facility] Stop: 02/23/26 20:59 Last Admin: 02/25/25 08:05 Dose: 81 mg Atorvastatin Calcium (Atorvastatin 10 Mg Tablet) 10 mg PO HS [facility] Stop: 02/25/26 21:59 Calcium Carbonate (Calcium Carbonate/Vitamin D3 500 Mg/200 Unit Tablet) 1 tab PO BID [facility] Stop: 02/25/26 08:59 Last Admin: 02/25/25 08:14 Dose: 1 tab Diphenhydramine HCl (Diphenhydramine 25 Mg Capsule) 25 mg PO Q6H PRN PRN Reason: Itching Stop: 02/23/26 15:37 Docusate Sodium (Docusate 100 Mg Capsule) 100 mg PO BID [facility] Stop: 02/23/26 20:59 Last Admin: 02/25/25 08:06 Dose: Not Given Ferrous Sulfate (Ferrous Sulfate 324 Mg Tablet.) 324 mg PO BID.WITH.MEALS [facility] Stop: 02/23/26 16:59 Last Admin: 02/25/25 08:05 Dose: 324 mg Isosorbide Mononitrate (Isosorbide Mononitrate 24hr Er 30 Mg Tab.Er.24h) 30 mg PO QAM [facility] Stop: 02/25/26 08:59 Last Admin: 02/25/25 08:06 Dose: 30 mg Levothyroxine Sodium (Levothyroxine 125 Mcg Tablet) 250 mcg PO DAILY@0630 [facility] Stop: 02/25/26 09:59 Melatonin (Melatonin 3 Mg Tablet) 12 mg PO QHS [facility] Stop: 02/25/26 21:59 Metoprolol Tartrate (Metoprolol Tartrate 50 Mg Tablet) 50 mg PO BID [facility] Stop: 02/25/26 08:59 Last Admin: 02/25/25 08:05 Dose: 50 mg Mineral Oil (Mineral Oil ([place]) 1 Each Enema) 1 each MO ONCE PRN PRN Reason: Constipation Morphine Sulfate (Morphine Sulfate 12hr Er 15 Mg Tablet.Er) 15 mg PO Q12H PRN PRN Reason: Pain Naloxone HCl (Naloxone Hcl 0.4 Mg/Ml Vial) 0.4 mg IV-PUSH Q2M PRN PRN Reason: Opioid Reversal Stop: 02/23/26 15:37 Ondansetron HCl (Ondansetron Odt 4 Mg Tab.Rapdis) 8 mg PO TID PRN PRN Reason: Nausea Stop: 02/23/26 15:37 Oxycodone HCl (Oxycodone Ir 5 Mg Tablet) 5 mg PO Q4HR PRN PRN Reason: Pain Scale 6 - 10 Last Admin: 02/25/25 08:06 Dose: 5 mg Polyethylene Glycol (Polyethylene Glycol 3350 17 Gm Powd.Pack) 17 gm PO DAILY [facility] Stop: 03/03/25 08:59 Last Admin: 02/25/25 08:07 Dose: Not Given Prochlorperazine Maleate (Prochlorperazine Maleate 5 Mg Tablet) 10 mg PO Q6H PRN PRN Reason: Nausea Stop: 02/23/26 15:37 Senna/Docusate Sodium (Sennosides/Docusate 8.6-50mg 1 Tab Tablet) 2 tab PO DAILY [facility] Stop: 03/26/25 08:59 Last Admin: 02/25/25 08:07 Dose: Not Given Sodium Chloride (Sodium Chloride 0.9 % 10 Ml Syringe) 0 ml IV-PUSH PRN PRN PRN Reason: Flush Stop: 02/24/26 07:30 Tamsulosin HCl (Tamsulosin 0.4 Mg Cap.Er.24h) 0.4 mg PO DAILY [facility] Stop: 02/25/26 08:59 Last Admin: 02/25/25 08:06 Dose: 0.4 mg Temazepam (Temazepam 7.5 Mg Capsule) 7.5 mg PO QHS PRN PRN Reason: Insomnia Stop: 08/22/25 15:37 Tizanidine HCl (Tizanidine 4 Mg Tablet) 4 mg PO HS [facility] Stop: 02/25/26 21:59 Topiramate (Topiramate 100 Mg Tablet) 100 mg PO QAM [facility] Stop: 02/25/26 08:59 Last Admin: 02/25/25 08:14 Dose: 100 mg Topiramate (Topiramate 100 Mg Tablet) 200 mg PO HS [facility] Stop: 02/25/26 21:59 Tramadol HCl (Tramadol 50 Mg Tablet) 50 mg PO Q6H PRN PRN Reason: Pain Scale 1 - 5 Stop: 08/22/25 15:37 Triamcinolone Acetonide (Triamcinolone 0.5% Cream 15 Gm Tube) 1 applic TOPICAL BID [facility] Stop: 02/24/26 11:29 Last Admin: 02/25/25 08:07 Dose: 1 applic A&P - Infectious Disease Assessment/Plan (1) Stasis dermatitis: Plan To be dc on triamcinolone cream and to use on the RLE BID for 2 weeks. Avoid scratching. Documented By: Ammon Huang MD 02/25/2547 Signed By: <Electronically signed by MD Ammon Huang> 02/25/25 0854 [facility] Work Phone: [phone]) 140-579508-13-2025 [place] [address] Orthopedic Progress Note Signed Patient: Rehan Trejo MR#: [id number] : 1965 Acct:[id number] Age/Sex: 60 / M Adm Date: 5 Loc: Room: 7C1124-6 Type: ADM INOo Attending Dr: Nishant Ceja DO Copies to: ~ Date of Service: 02/25/2025 Subjective Subjective Interval History: Patient doing okay this morning. Complaining of headache. Right lower extremity does feel improved after topical steroids Exam Physical Exam Vital Signs: Temp Pulse Resp BP Pulse Ox O2 Del Method 97.7 F 72 16 166/92 H 100 Room Air 02/25/25 08:00 02/25/25 08:00 02/25/25 08:00 02/25/25 08:00 02/25/25 08:00 02/25/25 08:00 Narrative: Patient seen evaluated in an operative area. He is in no acute distress. Right lower extremity evaluated. Less redness and swelling noted in the leg. Foot is without issue.This is mildly tender to palpation. He is able to move the ankle and knee without issue. Has normalsensation in the foot Objective Labs Labs: Laboratory Results - last 24 hr 02/24/25 02/25/25 10:54 04:25 Corrected WBC 8.8 6.9 Uncorrected WBC Count 8.8 6.9 RBC 4.20 4.31 Hgb 14.0 14.3 Hct 42.1 42.9 MCV 100.2 99.5 MCH 33.4 33.2 MCHC 33.3 33.4 RDW 13.1 13.5 Plt Count 186 164 MPV 8.6 8.5 Neut % (Auto) 53.6 49.4 Lymph % (Auto) 29.7 31.0 [place] % (Auto) 8.8 10.5 Eos % (Auto) 6.7 8.6 Baso % (Auto) 1.2 0.5 Nucleat RBC Rel Count 0.2 0.1 Neut # (Auto) 4.7 3.4 Lymph # (Auto) 2.6 2.1 [place] # (Auto) 0.8 0.7 Eos # (Auto) 0.6 H 0.6 H Baso # (Auto) 0.1 0.0 PHA Creatinine Clear 148.04 123.16 Sodium 127 L 130 L Potassium 4.1 4.0 Chloride 98 102 Carbon Dioxide 24.2 19.9 L Anion Gap 8.9 12.1 BUN 7 11 Creatinine 0.63 L 0.76 Est GFR (CKD-EPI) > 60.0 > 60.0 Glucose 88 77 Calcium 8.7 8.2 L Assessment / Plan Assessment and plan (1) Cellulitis of right lower extremity: Code(s): L03.115 - Cellulitis of right lower limb Plan Right lower extremity cellulitis versus dermatitis Evaluated with infectious disease yesterday do appreciate input. He was startedon topical steroids as Dr. Huang felt this was less likely to be cellulitis. Hedoes show improvement on physical exam today. Denies any itching today. We will provide prescription for triamcinolone topically. Plan to do this until leg is fully improved. Will see back as outpatient for evaluation in preparation for lefttotal hip arthroplasty once this is cleared up. Documented By: Nishant Ceja DO 02/25/25 1007 Signed By: 02/25/25 1009 [facility]08-13-2025 [facility] [place] [id number] Infect. Disease Progress Note Signed Patient: Rehan Trejo MR#: [id number] : 1965 Acct:[id number] Age/Sex: 60 / M Adm Date: 5 Loc: 4N Room: 9A0839-7 Type: ADM INOo Attending Dr: Nishant Ceja DO Copies to: ~ Date of Service: 02/25/2025 Subjective Interval history: Overnight right lower extremity is much less pruritic. Triamcinolone cream started yesterday. Patient does not feel the need to scratch. Exam Physical Exam Vital Signs: Temp Pulse Resp BP Pulse Ox O2 Del Method 97.7 F 72 16 166/92 H 100 Room Air 02/25/25 08:00 02/25/25 08:00 02/25/25 08:00 02/25/25 08:00 02/25/25 08:00 02/25/25 08:00 Const General: cooperative and comfortable Orientation: oriented x3 HEENT Head: normal to inspection Ears: hearing grossly normal bilaterally Mouth: oral mucosae normal Eyes General: appearance normal, both eyes and all related structures Neck Neck: normal visual inspection Chest Chest palpation & inspection: normal inspection of the chest Resp Effort & Inspection: normal respiratory effort Cardio Rhythm: regular rhythm GI Inspection: normal to inspection Palpation: soft and nontender Skin General: rashes and/or lesions noted Other: Excoriated lesions noted on his right lower extremity. Some erythema noted around these lesions andit is slightly warm to the touch. With leg elevation some of the erythema does dissipate. I do not see any purulence coming from these wounds and these wounds his state ooze yellow fluid when he scratchesthem open. The foot does have onychomycotic changes without skin breakdown or evidence of tinea pedis. The foot has no erythema on currently. The excoriatedlesions are only noted on the anterior leg on the right and posteriorly there isno skin lesions Extrem General: abnormal to inspection (see above) Objective Labs CBC/BMP: CBC, BMP 02/24/25 02/25/25 10:54 04:25 Corrected WBC 8.8 6.9 Uncorrected WBC Count 8.8 6.9 RBC 4.20 4.31 Hgb 14.0 14.3 Hct 42.1 42.9 Plt Count 186 164 Sodium 127 L 130 L Potassium 4.1 4.0 Chloride 98 102 Carbon Dioxide 24.2 19.9 L Anion Gap 8.9 12.1 BUN 7 11 Creatinine 0.63 L 0.76 Calcium 8.7 8.2 L Labs: 02/24/25 02/25/25 10:54 04:25 BUN 7 11 Creatinine 0.63 L 0.76 Allergies and Medications Allergies and Active Meds Allergies Penicillins Allergy (Severe, Verified 02/24/25 07:57) Swelling of Throat, Rash procaine (From Novocain) Allergy (Verified 02/24/25 07:57) Unknown Reaction strawberry Allergy (Verified 02/24/25 07:57) Hives Active Medications Acetaminophen (Acetaminophen 500 Mg Tablet) 1,000 mg PO Q8H [facility] Stop: 02/23/26 15:44 Last Admin: 02/25/25 06:39 Dose: 1,000 mg Ascorbic Acid (Ascorbic Acid 500 Mg Tablet) 500 mg PO BID.WITH.MEALS [facility] Stop: 02/23/26 16:59 Last Admin: 02/25/25 08:05 Dose: 500 mg Aspirin (Aspirin 81 Mg Tablet.) 81 mg PO BID [facility] Stop: 02/23/26 20:59 Last Admin: 02/25/25 08:05 Dose: 81 mg Atorvastatin Calcium (Atorvastatin 10 Mg Tablet) 10 mg PO HS [facility] Stop: 02/25/26 21:59 Calcium Carbonate (Calcium Carbonate/Vitamin D3 500 Mg/200 Unit Tablet) 1 tab PO BID [facility] Stop: 02/25/26 08:59 Last Admin: 02/25/25 08:14 Dose: 1 tab Diphenhydramine HCl (Diphenhydramine 25 Mg Capsule) 25 mg PO Q6H PRN PRN Reason: Itching Stop: 02/23/26 15:37 Docusate Sodium (Docusate 100 Mg Capsule) 100 mg PO BID [facility] Stop: 02/23/26 20:59 Last Admin: 02/25/25 08:06 Dose: Not Given Ferrous Sulfate (Ferrous Sulfate 324 Mg Tablet.) 324 mg PO BID.WITH.MEALS [facility] Stop: 02/23/26 16:59 Last Admin: 02/25/25 08:05 Dose: 324 mg Isosorbide Mononitrate (Isosorbide Mononitrate 24hr Er 30 Mg Tab.Er.24h) 30 mg PO QAM [facility] Stop: 02/25/26 08:59 Last Admin: 02/25/25 08:06 Dose: 30 mg Levothyroxine Sodium (Levothyroxine 125 Mcg Tablet) 250 mcg PO DAILY@0630 [facility] Stop: 02/25/26 09:59 Melatonin (Melatonin 3 Mg Tablet) 12 mg PO QHS [facility] Stop: 02/25/26 21:59 Metoprolol Tartrate (Metoprolol Tartrate 50 Mg Tablet) 50 mg PO BID [facility] Stop: 02/25/26 08:59 Last Admin: 02/25/25 08:05 Dose: 50 mg Mineral Oil (Mineral Oil ([place]) 1 Each Enema) 1 each MO ONCE PRN PRN Reason: Constipation Morphine Sulfate (Morphine Sulfate 12hr Er 15 Mg Tablet.Er) 15 mg PO Q12H PRN PRN Reason: Pain Naloxone HCl (Naloxone Hcl 0.4 Mg/Ml Vial) 0.4 mg IV-PUSH Q2M PRN PRN Reason: Opioid Reversal Stop: 02/23/26 15:37 Ondansetron HCl (Ondansetron Odt 4 Mg Tab.Rapdis) 8 mg PO TID PRN PRN Reason: Nausea Stop: 02/23/26 15:37 Oxycodone HCl (Oxycodone Ir 5 Mg Tablet) 5 mg PO Q4HR PRN PRN Reason: Pain Scale 6 - 10 Last Admin: 02/25/25 08:06 Dose: 5 mg Polyethylene Glycol (Polyethylene Glycol 3350 17 Gm Powd.Pack) 17 gm PO DAILY [facility] Stop: 03/03/25 08:59 Last Admin: 02/25/25 08:07 Dose: Not Given Prochlorperazine Maleate (Prochlorperazine Maleate 5 Mg Tablet) 10 mg PO Q6H PRN PRN Reason: Nausea Stop: 02/23/26 15:37 Senna/Docusate Sodium (Sennosides/Docusate 8.6-50mg 1 Tab Tablet) 2 tab PO DAILY [facility] Stop: 03/26/25 08:59 Last Admin: 02/25/25 08:07 Dose: Not Given Sodium Chloride (Sodium Chloride 0.9 % 10 Ml Syringe) 0 ml IV-PUSH PRN PRN PRN Reason: Flush Stop: 02/24/26 07:30 Tamsulosin HCl (Tamsulosin 0.4 Mg Cap.Er.24h) 0.4 mg PO DAILY [facility] Stop: 02/25/26 08:59 Last Admin: 02/25/25 08:06 Dose: 0.4 mg Temazepam (Temazepam 7.5 Mg Capsule) 7.5 mg PO QHS PRN PRN Reason: Insomnia Stop: 08/22/25 15:37 Tizanidine HCl (Tizanidine 4 Mg Tablet) 4 mg PO HS [facility] Stop: 02/25/26 21:59 Topiramate (Topiramate 100 Mg Tablet) 100 mg PO QAM [facility] Stop: 02/25/26 08:59 Last Admin: 02/25/25 08:14 Dose: 100 mg Topiramate (Topiramate 100 Mg Tablet) 200 mg PO HS [facility] Stop: 02/25/26 21:59 Tramadol HCl (Tramadol 50 Mg Tablet) 50 mg PO Q6H PRN PRN Reason: Pain Scale 1 - 5 Stop: 08/22/25 15:37 Triamcinolone Acetonide (Triamcinolone 0.5% Cream 15 Gm Tube) 1 applic TOPICAL BID [facility] Stop: 02/24/26 11:29 Last Admin: 02/25/25 08:07 Dose: 1 applic A&P - Infectious Disease Assessment/Plan (1) Stasis dermatitis: Plan To be dc on triamcinolone cream and to use on the RLE BID for 2 weeks. Avoid scratching. Documented By: Ammon Huang MD 02/25/25 0847 Signed By: 02/25/25 0854 [facility]08-12-2025 Consult note Author Ammon Huang [facility] Note Date/Time February 24, 2025 10 :46am [facility] [address] [place] [address] Infect. Disease Consult Note Signed Patient: Rehan Trejo MR#: [id number] : 1965 Acct:[id number] Age/Sex: 60 / M Adm Date: 5 Loc: 4N Room: 2P5078-2 Type: REG [facility] Attending Dr: Nishant Ceja DO Copies to: MD Nishant Bagley DO Michael S Blank, MD~ HPI Data of Consult Consult date: 02/24/25 Requesting Physician: Nishant Ceja DO Primary Care Provider: Pee Lakhani MD Consult Narrative History of present illness: Mr. Trejo is a 60 year old male who was actually admitted for a left hip replacement but his right lower extremity had some erythema and warmth so cellulitis was a concern and his surgery was canceled. Patient tells me he has been scratching his right lower extremity for the last 3 months. It itches quite significantly and despite hydrocortisone over the last week or so there isnot been much improvement. Patient denies fevers or chills. He had his right hip replaced 3 months ago. Patient denies systemic symptoms of infection otherwise. I was consulted for concerns of cellulitis of the right lower extremity. Patient is nondiabetic CC: Nishant Ceja DO Review of Systems Review of Systems All other systems reviewed & are negative unless noted below or in HPI [facility] Medical History (Updated 02/24/25 @ 10:45 by Ammon Huang MD) CAD (coronary artery disease) Hyperlipidemia COPD (chronic obstructive pulmonary disease) Asthma Seizure disorder Hypothyroidism Implantable loop recorder present Placed 08/2024 BPH (benign prostatic hyperplasia) HTN (hypertension) Surgical History (Updated 02/24/25 @ 08:22 by Halie Vallecillo RN) S/P total right hip arthroplasty History of arthroplasty of right hip H/O hand surgery History of back surgery H/O foot surgery Family History Father Diabetes Cancer Multiple sclerosis Mother Cancer breast Social History Smoking Status: Former smoker Tobacco Type: cigarettes Substance Use Type: Alcohol Allergies and Medications Allergies and Active Meds Allergies Penicillins Allergy (Severe, Verified 02/24/25 07:57) Swelling of Throat, Rash procaine (From Novocain) Allergy (Verified 02/24/25 07:57) Unknown Reaction strawberry Allergy (Verified 02/24/25 07:57) Hives Active Medications Acetaminophen (Acetaminophen 500 Mg Tablet) 1,000 mg PO Q8H [facility] Stop: 02/23/26 15:44 Ascorbic Acid (Ascorbic Acid 500 Mg Tablet) 500 mg PO BID.WITH.MEALS [facility] Stop: 02/23/26 16:59 Aspirin (Aspirin 81 Mg Tablet.) 81 mg PO BID [facility] Stop: 02/23/26 20:59 Diphenhydramine HCl (Diphenhydramine 25 Mg Capsule) 25 mg PO Q6H PRN PRN Reason: Itching Stop: 02/23/26 15:37 Docusate Sodium (Docusate 100 Mg Capsule) 100 mg PO BID [facility] Stop: 02/23/26 20:59 Ferrous Sulfate (Ferrous Sulfate 324 Mg Tablet.Dr) 324 mg PO BID.WITH.MEALS [facility] Stop: 02/23/26 16:59 Lactated Ringer's (Lactated Ringers) 1,000 mls @ 75 mls/hr IV .[id number] [facility] Stop: 02/23/26 15:44 Lactated Ringer's (Lactated Ringers) 1,000 mls @ 20 mls/hr IV .Q24H ONE Stop: 02/25/25 08:29 Last Infusion: 02/24/25 09:20 Dose: 20 mls/hr Mineral Oil (Mineral Oil ([place]) 1 Each Enema) 1 each MO ONCE PRN PRN Reason: Constipation Morphine Sulfate (Morphine Sulfate 12hr Er 15 Mg Tablet.Er) 15 mg PO Q12H PRN PRN Reason: Pain Naloxone HCl (Naloxone Hcl 0.4 Mg/Ml Vial) 0.4 mg IV-PUSH Q2M PRN PRN Reason: Opioid Reversal Stop: 02/23/26 15:37 Ondansetron HCl (Ondansetron Odt 4 Mg Tab.Rapdis) 8 mg PO TID PRN PRN Reason: Nausea Stop: 02/23/26 15:37 Oxycodone HCl (Oxycodone Ir 5 Mg Tablet) 5 mg PO Q4HR PRN PRN Reason: Pain Scale 6 - 10 Last Admin: 02/24/25 08:27 Dose: 5 mg Polyethylene Glycol (Polyethylene Glycol 3350 17 Gm Powd.Pack) 17 gm PO DAILY [facility] Stop: 03/03/25 08:59 Prochlorperazine Maleate (Prochlorperazine Maleate 5 Mg Tablet) 10 mg PO Q6H PRN PRN Reason: Nausea Stop: 02/23/26 15:37 Senna/Docusate Sodium (Sennosides/Docusate 8.6-50mg 1 Tab Tablet) 2 tab PO DAILY [facility] Stop: 03/26/25 08:59 Sodium Chloride (Sodium Chloride 0.9 % 10 Ml Syringe) 0 ml IV-PUSH PRN PRN PRN Reason: Flush Stop: 02/24/26 07:30 Temazepam (Temazepam 7.5 Mg Capsule) 7.5 mg PO QHS PRN PRN Reason: Insomnia Stop: 08/22/25 15:37 Tramadol HCl (Tramadol 50 Mg Tablet) 50 mg PO Q6H PRN PRN Reason: Pain Scale 1 - 5 Stop: 08/22/25 15:37 Triamcinolone Acetonide (Triamcinolone 0.5% Cream 15 Gm Tube) 1 applic TOPICAL BID CHRISTOPHER Stop: 02/24/26 10:44 Exam Physical Exam Vital Signs: Vital Signs Temp Pulse Pulse Resp BP Pulse Ox O2 Del Method 02/24/25 09:50 54 L 14 128/82 98 Room Air 02/24/25 09:35 54 L 12 125/78 98 Room Air 02/24/25 09:20 59 L 12 128/97 99 Room Air 02/24/25 08:51 64 16 121/71 97 Room Air 02/24/25 08:48 62 16 145/86 H 98 Room Air 02/24/25 08:12 Room Air 02/24/25 08:12 98.2 F 58 L 16 128/77 98 Room Air Intake and Output 02/23/25 02/24/25 02/24/25 23:59 07:59 15:59 Intake Total 100 / 100 Balance 100 / 100 Intake: IV 100 / 100 Lactated Ringers 1,000 ml @ 20 100 / 100 mls/hr IV .Q24H ONE Rx#: [id number] Other: Weight 93.44 kg Date of Last Bowel Movement 02/23/25 Patient Weight 02/24/25 23:59 Weight 93.44 kg Const General: cooperative and comfortable Orientation: oriented x3 HEENT Head: normal to inspection Ears: hearing grossly normal bilaterally Mouth: oral mucosae normal Eyes General: appearance normal, both eyes and all related structures Neck Neck: normal visual inspection Chest Chest palpation & inspection: normal inspection of the chest Resp Effort & Inspection: normal respiratory effort Cardio Rhythm: regular rhythm GI Inspection: normal to inspection Palpation: soft and nontender Skin General: rashes and/or lesions noted Other: Excoriated lesions noted on his right lower extremity. Some erythema noted around these lesions and it is slightly warm to the touch. With leg elevation some of the erythema does dissipate. I do not see any purulence coming from these wounds and these wounds his state ooze yellow fluid when he scratchesthem open. The foot does have onychomycotic changes without skin breakdown or evidence of tinea pedis. The foot has no erythema on currently. The excoriatedlesions are only noted on the anterior leg on the right and posteriorly there isno skin lesions Extrem General: abnormal to inspection (see above) Other: A&P - Infectious Disease (1) Stasis dermatitis: Plan Given presentation patient complains of itching I feel this is more of a stasis dermatitis issue than a true bacterial infection. I do realize that the leg does have some erythema and around the open skin areas secondary infection is always a possibility. Would like to attempt first triamcinolone cream to the leg as I just ordered this and observe off systemic antibiotics. Will check CBC. Patient without systemic symptoms of infection. Also noted posterior aspect of leg has no skin lesions or erythematous delgado noted. Documented By: Ammon Huang MD 02/24/25 1040 Signed By: <Electronically signed by MD Ammon Huang> 02/24/25 1046 [facility] Work Phone: 1(832) 170-382508-12-2025 History and physical note Author Nishant Ceja [facility] Note Date/Time February 24, 2025 9: 35am [facility] [address] [place] [address] Orthopedic Surgery H&P Signed Patient: Rehan Trejo MR#: [id number] : 1965 Acct:[id number] Age/Sex: 60 / M Adm Date: 5 Loc: DC Room: Type: [facility] Attending Dr: Nishant Ceja DO Copies to: MD Nishant Bagley DO~ Date of Service: 02/24/2025 HPI History of Present Illness History of Present Illness: Rehan is 60-year-old male who was here today in preparation for left total hip arthroplasty. He was found to have right lower extremity cellulitis and surgerywas canceled. Has admitted to several weeks of right lower leg swelling and erythema along with warmth. It has been itchy. Has been using some topical steroid cream without resolution PMFSH Medical History (Updated 02/24/25 @ 09:35 by Nishant A Brenna, DO) CAD (coronary artery disease) Hyperlipidemia COPD (chronic obstructive pulmonary disease) Asthma Seizure disorder Hypothyroidism Implantable loop recorder present Placed 08/2024 BPH (benign prostatic hyperplasia) HTN (hypertension) Surgical History (Updated 02/24/25 @ 08:22 by Halie Vallecillo RN) S/P total right hip arthroplasty History of arthroplasty of right hip H/O hand surgery History of back surgery H/O foot surgery Family History Father Diabetes Cancer Multiple sclerosis Mother Cancer breast Social History Smoking Status: Former smoker Tobacco Type: cigarettes Substance Use Type: Alcohol Allergies & Medications Medications and Allergies Allergies Penicillins Allergy (Severe, Verified 02/24/25 07:57) Swelling of Throat, Rash procaine (From Novocain) Allergy (Verified 02/24/25 07:57) Unknown Reaction strawberry Allergy (Verified 02/24/25 07:57) Hives Home Medications atorvastatin 10 mg tablet 10 mg PO HS 12/01/24 [History Confirmed 02/11/25] diphenhydramine HCl 25 mg capsule (Allergy (diphenhydramine)) 25 mg PO QHS 12/01/24 [History Confirmed 02/11/25] isosorbide mononitrate 30 mg tablet,extended release 24 hr 30 mg PO .am 12/01/24[History Confirmed 02/11/25] levothyroxine 125 mcg tablet 250 mcg PO .am 12/01/24 [History Confirmed 02/11/25] melatonin 12 mg tablet 12 mg PO QHS 12/01/24 [History Confirmed 02/11/25] metoprolol tartrate 50 mg tablet 50 mg PO BID 12/01/24 [History Confirmed 02/24/25] tamsulosin 0.4 mg capsule 0.4 mg PO DAILY 12/01/24 [History Confirmed 02/11/25] tizanidine 4 mg tablet 4 mg PO HS 12/01/24 [History Confirmed 02/11/25] topiramate 100 mg tablet 200 mg PO HS 12/01/24 [History Confirmed 02/11/25] topiramate 100 mg tablet (Topamax) 100 mg PO .am 12/01/24 [History Confirmed 02/11/25] acetaminophen 500 mg tablet 1,000 mg (2 x 500 mg) PO Q8H PRN pain 30 days #180 tabs 12/12/24 [Rx Confirmed 02/11/25] ascorbic acid (vitamin C) 500 mg tablet (Vitamin C) 500 mg PO BID.WITH.MEALS 7 days #14 tabs 12/12/24 [Rx Confirmed 02/11/25] calcium 600 mg (as carbonate)-vitamin D3 12.5 mcg (500 unit) capsule (Calcium with Vit D3) 1 cap PO BID #60 caps 12/12/24 [Rx Confirmed 02/11/25] diclofenac sodium 75 mg tablet,delayed release 75 mg PO DAILY #30 tabs 12/12/24 [Rx Confirmed 02/24/25] aspirin 81 mg chewable tablet 81 mg PO BID 37 days #74 tabs 02/11/25 [Rx Confirmed 02/24/25] cyclobenzaprine 10 mg tablet 5 - 10 mg (0.5 - 1 x 10 mg) PO Q8H 14 days #30 tabs02/11/25 [Rx Confirmed 02/24/25] docusate sodium 100 mg capsule (Colace) 100 mg PO BID 14 days #28 caps 02/11/25 [Rx Confirmed 02/11/25] doxycycline hyclate 100 mg tablet 100 mg PO BID 7 days #14 tabs 02/11/25 [Rx Confirmed 02/11/25] oxycodone 5 mg tablet 5 mg PO Q4H PRN Pain 7 days #42 tabs 02/11/25 [Rx Confirmed 02/11/25] tramadol 50 mg tablet 50 mg PO Q4H PRN Pain 7 days #42 tabs 02/11/25 [Rx Confirmed 02/11/25] Exam Physical Exam Vital Signs: Temp Pulse Resp BP Pulse Ox O2 Del Method 98.2 F 64 16 121/71 97 Room Air 02/24/25 08:12 02/24/25 08:51 02/24/25 08:51 02/24/25 08:51 02/24/25 08:51 02/24/25 08:51 Narrative: Patient seen evaluated in an operative area. He is in no acute distress. Right lower extremity evaluated. He has edema, warmth and erythema in the lowerleg from knee to ankle. Foot is without issue. This is mildly tender to palpation. He is able to move the ankle and knee without issue. Has normal sensation in the foot Results - Orthopedics Lab Results Labs: All other labs are normal. Assessment/Plan (1) Cellulitis of right lower extremity: Code(s): L03.115 - Cellulitis of right lower limb Plan Rehan presents with right lower extremity cellulitis, left total hip arthroplasty counseled. At this juncture we have discussed the findings and diagnosis as well as personally reviewed appropriate imaging and performed interpretation of related testing and examination with the patient in office today. Prior medical notes and history have been reviewed. At this time I wouldrecommend IV antibiotics and observation.will monitor overnight with lab work. If improving with IV antibiotics we will plan for discharge with oral antibiotics The patient has been involved in our cooperative treatment plan and agrees to move forward with treatment at this time. Documented By: Nishant Ceja DO 02/24/25 0933 Signed By: <Electronically signed by Nishant Ceja DO> 02/24/25 0935 [facility] Work Phone: 1(151) 942-300408-12-2025 [place] [address] Infect. Disease Consult Note Signed Patient: Rehan Trejo MR#: [id number] : 1965 Acct:[id number] Age/Sex: 60 / M Adm Date: 5 Loc: Room: [address] [place] [address] Type: [facility] Attending Dr: Nishant Ceja DO Copies to: MD Nishant Bagley DO Michael S Blank, MD~ HPI Data of Consult Consult date: 02/24/25 Requesting Physician: Nishant Ceja DO Primary Care Provider: Pee Lakhani MD Consult Narrative History of present illness: Mr. Trejo is a 60 year old male who was actually admitted for a left hip replacement but his right lower extremity had some erythema and warmth so cellulitis was a concern and his surgery was canceled. Patient tells me he has been scratching his right lower extremity for the last 3 months. It itches quite significantly and despite hydrocortisone over the last week or so there isnot been much improvement. Patient denies fevers or chills. He had his right hip replaced 3 months ago. Patient denies systemic symptoms of infection otherwise. I was consulted for concerns of cellulitis of the right lower extremity. Patient is nondiabetic CC: Nishant Ceja, DO Review of Systems Review of Systems All other systems reviewed & are negative unless noted below or in HPI [facility] Medical History (Updated 02/24/25 @ 10:45 by Ammon Huang MD) CAD (coronary artery disease) Hyperlipidemia COPD (chronic obstructive pulmonary disease) Asthma Seizure disorder Hypothyroidism Implantable loop recorder present Placed 08/2024 BPH (benign prostatic hyperplasia) HTN (hypertension) Surgical History (Updated 02/24/25 @ 08:22 by Halie Vallecillo RN) S/P total right hip arthroplasty History of arthroplasty of right hip H/O hand surgery History of back surgery H/O foot surgery Family History Father Diabetes Cancer Multiple sclerosis Mother Cancer breast Social History Smoking Status: Former smoker Tobacco Type: cigarettes Substance Use Type: Alcohol Allergies and Medications Allergies and Active Meds Allergies Penicillins Allergy (Severe, Verified 02/24/25 07:57) Swelling of Throat, Rash procaine (From Novocain) Allergy (Verified 02/24/25 07:57) Unknown Reaction strawberry Allergy (Verified 02/24/25 07:57) Hives Active Medications Acetaminophen (Acetaminophen 500 Mg Tablet) 1,000 mg PO Q8H CHRISTOPHER Stop: 02/23/26 15:44 Ascorbic Acid (Ascorbic Acid 500 Mg Tablet) 500 mg PO BID.WITH.MEALS CHRISTOPHER Stop: 02/23/26 16:59 Aspirin (Aspirin 81 Mg Tablet.) 81 mg PO BID CHRISTOPHER Stop: 02/23/26 20:59 Diphenhydramine HCl (Diphenhydramine 25 Mg Capsule) 25 mg PO Q6H PRN PRN Reason: Itching Stop: 02/23/26 15:37 Docusate Sodium (Docusate 100 Mg Capsule) 100 mg PO BID CHRISTOPHER Stop: 02/23/26 20:59 Ferrous Sulfate (Ferrous Sulfate 324 Mg Tablet.) 324 mg PO BID.WITH.MEALS CHRISTOPHER Stop: 02/23/26 16:59 Lactated Ringer's (Lactated Ringers) 1,000 mls @ 75 mls/hr IV .[id number] CHRISTOPHER Stop: 02/23/26 15:44 Lactated Ringer's (Lactated Ringers) 1,000 mls @ 20 mls/hr IV .Q24H ONE Stop: 02/25/25 08:29 Last Infusion: 02/24/25 09:20 Dose: 20 mls/hr Mineral Oil (Mineral Oil ([place]) 1 Each Enema) 1 each MO ONCE PRN PRN Reason: Constipation Morphine Sulfate (Morphine Sulfate 12hr Er 15 Mg Tablet.Er) 15 mg PO Q12H PRN PRN Reason: Pain Naloxone HCl (Naloxone Hcl 0.4 Mg/Ml Vial) 0.4 mg IV-PUSH Q2M PRN PRN Reason: Opioid Reversal Stop: 02/23/26 15:37 Ondansetron HCl (Ondansetron Odt 4 Mg Tab.Rapdis) 8 mg PO TID PRN PRN Reason: Nausea Stop: 02/23/26 15:37 Oxycodone HCl (Oxycodone Ir 5 Mg Tablet) 5 mg PO Q4HR PRN PRN Reason: Pain Scale 6 - 10 Last Admin: 02/24/25 08:27 Dose: 5 mg Polyethylene Glycol (Polyethylene Glycol 3350 17 Gm Powd.Pack) 17 gm PO DAILY CHRISTOPHER Stop: 03/03/25 08:59 Prochlorperazine Maleate (Prochlorperazine Maleate 5 Mg Tablet) 10 mg PO Q6H PRN PRN Reason: Nausea Stop: 02/23/26 15:37 Senna/Docusate Sodium (Sennosides/Docusate 8.6-50mg 1 Tab Tablet) 2 tab PO DAILY CHRISTOPHER Stop: 03/26/25 08:59 Sodium Chloride (Sodium Chloride 0.9 % 10 Ml Syringe) 0 ml IV-PUSH PRN PRN PRN Reason: Flush Stop: 02/24/26 07:30 Temazepam (Temazepam 7.5 Mg Capsule) 7.5 mg PO QHS PRN PRN Reason: Insomnia Stop: 08/22/25 15:37 Tramadol HCl (Tramadol 50 Mg Tablet) 50 mg PO Q6H PRN PRN Reason: Pain Scale 1 - 5 Stop: 08/22/25 15:37 Triamcinolone Acetonide (Triamcinolone 0.5% Cream 15 Gm Tube) 1 applic TOPICAL BID CHRISTOPHER Stop: 02/24/26 10:44 Exam Physical Exam Vital Signs: Vital Signs Temp Pulse Pulse Resp BP Pulse Ox O2 Del Method 02/24/25 09:50 54 L 14 128/82 98 Room Air 02/24/25 09:35 54 L 12 125/78 98 Room Air 02/24/25 09:20 59 L 12 128/97 99 Room Air 02/24/25 08:51 64 16 121/71 97 Room Air 02/24/25 08:48 62 16 145/86 H 98 Room Air 02/24/25 08:12 Room Air 02/24/25 08:12 98.2 F 58 L 16 128/77 98 Room Air Intake and Output 02/23/25 02/24/25 02/24/25 23:59 07:59 15:59 Intake Total 100 / 100 Balance 100 / 100 Intake: IV 100 / 100 Lactated Ringers 1,000 ml @ 20 100 / 100 mls/hr IV .Q24H ONE Rx#: [id number] Other: Weight 93.44 kg Date of Last Bowel Movement 02/23/25 Patient Weight 02/24/25 23:59 Weight 93.44 kg Const General: cooperative and comfortable Orientation: oriented x3 HEENT Head: normal to inspection Ears: hearing grossly normal bilaterally Mouth: oral mucosae normal Eyes General: appearance normal, both eyes and all related structures Neck Neck: normal visual inspection Chest Chest palpation & inspection: normal inspection of the chest Resp Effort & Inspection: normal respiratory effort Cardio Rhythm: regular rhythm GI Inspection: normal to inspection Palpation: soft and nontender Skin General: rashes and/or lesions noted Other: Excoriated lesions noted on his right lower extremity. Some erythema noted around these lesions andit is slightly warm to the touch. With leg elevation some of the erythema does dissipate. I do not see any purulence coming from these wounds and these wounds his state ooze yellow fluid when he scratchesthem open. The foot does have onychomycotic changes without skin breakdown or evidence of tinea pedis. The foot has no erythema on currently. The excoriatedlesions are only noted on the anterior leg on the right and posteriorly there isno skin lesions Extrem General: abnormal to inspection (see above) Other: A&P - Infectious Disease (1) Stasis dermatitis: Plan Given presentation patient complains of itching I feel this is more of a stasis dermatitis issue than a true bacterial infection. I do realize that the leg does have some erythema and around the openskin areas secondary infection is always a possibility. Would like to attempt first triamcinolone cream to the leg as I just ordered this and observe off systemic antibiotics. Will check CBC. Patient without systemic symptoms of infection. Also noted posterior aspect of leg has no skin lesions or erythematous delgado noted. Documented By: Ammon Huang MD 02/24/25 1040 Signed By: 02/24/25 1046 [facility]08-12-2025 [place] [address] Orthopedic Surgery H&P Signed Patient: Rehan Trejo MR#: [id number] : 1965 Acct:[id number] Age/Sex: 60 / M Adm Date: 5 Loc: DC Room: Type: [facility] Attending Dr: Nishant Ceja DO Copies to: MD Nishant Bagley DO~ Date of Service: 02/24/2025 HPI History of Present Illness History of Present Illness: Rehan is 60-year-old male who was here today in preparation for left total hip arthroplasty. He wasfound to have right lower extremity cellulitis and surgerywas canceled. Has admitted to several weeks of right lower leg swelling and erythema along with warmth. It has been itchy. Has been using some topical steroid cream without resolution [facility] Medical History (Updated 02/24/25 @ 09:35 by Nishant Ceja DO) CAD (coronary artery disease) Hyperlipidemia COPD (chronic obstructive pulmonary disease) Asthma Seizure disorder Hypothyroidism Implantable loop recorder present Placed 08/2024 BPH (benign prostatic hyperplasia) HTN (hypertension) Surgical History (Updated 02/24/25 @ 08:22 by Halie Vallecillo RN) S/P total right hip arthroplasty History of arthroplasty of right hip H/O hand surgery History of back surgery H/O foot surgery Family History Father Diabetes Cancer Multiple sclerosis Mother Cancer breast Social History Smoking Status: Former smoker Tobacco Type: cigarettes Substance Use Type: Alcohol Allergies & Medications Medications and Allergies Allergies Penicillins Allergy (Severe, Verified 02/24/25 07:57) Swelling of Throat, Rash procaine (From Novocain) Allergy (Verified 02/24/25 07:57) Unknown Reaction strawberry Allergy (Verified 02/24/25 07:57) Hives Home Medications atorvastatin 10 mg tablet 10 mg PO HS 12/01/24 [History Confirmed 02/11/25] diphenhydramine HCl 25 mg capsule (Allergy (diphenhydramine)) 25 mg PO QHS 12/01/24 [History Confirmed 02/11/25] isosorbide mononitrate 30 mg tablet,extended release 24 hr 30 mg PO .am 12/01/24[History Confirmed 02/11/25] levothyroxine 125 mcg tablet 250 mcg PO .am 12/01/24 [History Confirmed 02/11/25] melatonin 12 mg tablet 12 mg PO QHS 12/01/24 [History Confirmed 02/11/25] metoprolol tartrate 50 mg tablet 50 mg PO BID 12/01/24 [History Confirmed 02/24/25] tamsulosin 0.4 mg capsule 0.4 mg PO DAILY 12/01/24 [History Confirmed 02/11/25] tizanidine 4 mg tablet 4 mg PO HS 12/01/24 [History Confirmed 02/11/25] topiramate 100 mg tablet 200 mg PO HS 12/01/24 [History Confirmed 02/11/25] topiramate 100 mg tablet (Topamax) 100 mg PO .am 12/01/24 [History Confirmed 02/11/25] acetaminophen 500 mg tablet 1,000 mg (2 x 500 mg) PO Q8H PRN pain 30 days #180 tabs 12/12/24 [Rx Confirmed 02/11/25] ascorbic acid (vitamin C) 500 mg tablet (Vitamin C) 500 mg PO BID.WITH.MEALS 7 days #14 tabs 12/12/24 [Rx Confirmed 02/11/25] calcium 600 mg (as carbonate)-vitamin D3 12.5 mcg (500 unit) capsule (Calcium with Vit D3) 1 cap POBID #60 caps 12/12/24 [Rx Confirmed 02/11/25] diclofenac sodium 75 mg tablet,delayed release 75 mg PO DAILY #30 tabs 12/12/24 [Rx Confirmed 02/24/25] aspirin 81 mg chewable tablet 81 mg PO BID 37 days #74 tabs 02/11/25 [Rx Confirmed 02/24/25] cyclobenzaprine 10 mg tablet 5 - 10 mg (0.5 - 1 x 10 mg) PO Q8H 14 days #30 tabs02/11/25 [Rx Confirmed 02/24/25] docusate sodium 100 mg capsule (Colace) 100 mg PO BID 14 days #28 caps 02/11/25 [Rx Confirmed 02/11/25] doxycycline hyclate 100 mg tablet 100 mg PO BID 7 days #14 tabs 02/11/25 [Rx Confirmed 02/11/25] oxycodone 5 mg tablet 5 mg PO Q4H PRN Pain 7 days #42 tabs 02/11/25 [Rx Confirmed 02/11/25] tramadol 50 mg tablet 50 mg PO Q4H PRN Pain 7 days #42 tabs 02/11/25 [Rx Confirmed 02/11/25] Exam Physical Exam Vital Signs: Temp Pulse Resp BP Pulse Ox O2 Del Method 98.2 F 64 16 121/71 97 Room Air 02/24/25 08:12 02/24/25 08:51 02/24/25 08:51 02/24/25 08:51 02/24/25 08:51 02/24/25 08:51 Narrative: Patient seen evaluated in an operative area. He is in no acute distress. Right lower extremity evaluated. He has edema, warmth and erythema in the lowerleg from knee to ankle. Foot is without issue. This is mildly tender to palpation. He is able to move the ankle and kneewithout issue. Has normal sensation in the foot Results - Orthopedics Lab Results Labs: All other labs are normal. Assessment/Plan (1) Cellulitis of right lower extremity: Code(s): L03.115 - Cellulitis of right lower limb Plan Rehan presents with right lower extremity cellulitis, left total hip arthroplasty counseled. At this juncture we have discussed the findings and diagnosis as well as personally reviewed appropriate imaging and performed interpretation of related testing and examination with the patient in office tobaljeet guo. Prior medical notes and history have been reviewed. At this time I wouldrecommend IV antibiotics and observation.will monitor overnight with lab work. If improving with IV antibiotics we will plan for discharge with oral antibiotics The patient has been involved in our cooperative treatment plan and agrees to move forward with treatment at this time. Documented By: Nishant Ceja DO 02/24/25 0933 Signed By: 02/24/25 0935 [facility]05-30-2025 Progress note Author Paco Jimenez [facility] Note Date/Time December 12, 2024 1:16p m [facility] [address] [place] [address] Physiatry(Rehab) Progress Note Signed Patient: Rehan Trejo MR#: [id number] : 1965 Acct:[id number] Age/Sex: 59 / M Adm Date: 5 Loc: Room: [address] [place] [address] Type: ADM IN Attending Dr: Paco Jimenez MD Copies to: ~ Date of Service: 12/12/2024 Subjective Subjective Narrative: Mr. Trejo is a 59 year old male with a past medical history of right hip AVN, hypertension, seizure disorder, BPH, loop recorder placed 08/2024, GERD, asthma overlap COPD and hypothyroidism who was admitted to the inpatient rehab unit sp posterior approach right total hip arthroplasty with preop course complicated by subcapital femoral neck fracture AVN. Rehan was examined this morning seated upright on side of bed with physical therapy session in progress. Mentions responsibilities at home caring for his , mother and [id number]. Shares insight into mechanism of injury of the right quad tear 18 months ago with reinjury 2 to 3 weeks ago followed by fall in process of sit?stand from chair at home. Mentions near complete dependence on upper extremity for sit/stand. He is uncomfortable, moaning in pain and exhausted by simple posturing while seated upright bedside. Requests his inhaler. Reports no sleep overnight due topersistent high pain levels in both hips, R greater than L. Left hip pain and lower extremity weakness stable, chronic. Right hip pain new on chronic 8?9/10 and worse with minimal movement but is motivated and managing to work through the pain. Interval history: Patient examined today while working with therapy. He appears in no distress. Spouse present for FI. No major concerns today. Patient is doing well. Plan is for DC home this weekend. Review of Systems Review of Systems All other systems reviewed & are negative unless noted below or in HPI Exam Physical Exam Vital Signs: Temp Pulse Resp BP Pulse Ox O2 Del Method 98.2 F 86 16 125/78 95 Room Air 12/12/24 07:22 12/12/24 07:22 12/12/24 05:55 12/12/24 07:22 12/12/24 07:22 12/12/24 07:22 Narrative: NAD Extremities well perfused No respiratory distress Abdomen soft non distended TRU Slight edema RLE Mood is normal Speech is normal Objective Labs 12/04/24 03:41 12/04/24 03:41 Medications and Allergies Allergies and Active Meds: Allergies Penicillins Allergy (Severe, Verified 12/02/24 12:30) Swelling of Throat, Rash procaine (From Novocain) Allergy (Verified 12/02/24 12:30) Unknown Reaction strawberry Allergy (Verified 12/02/24 12:30) Unknown Reaction Active Medications Generic Name Dose Route Start Last Admin Trade Name Freq PRN Reason Stop Dose Admin Acetaminophen 1,000 mg 12/03/24 22:00 12/12/24 05:56 Acetaminophen 500 Mg Tablet PO 12/03/25 21:59 1,000 mg Q8H CHRISTOPHER Administration Al Hydrox/Mg Hydrox/Simethicone 30 ml 12/03/24 16:45 12/05/24 17:52 Mag Hydrox/Al Hydrox/Simeth 30 Ml Udc PO 12/03/25 16:44 30 ml Q4H PRN Administration Indigestion Ascorbic Acid 500 mg 12/04/24 08:00 12/12/24 07:46 Ascorbic Acid 500 Mg Tablet PO 12/04/25 07:59 500 mg BID.WITH.MEALS CHRISTOPHER Administration Aspirin 81 mg 12/03/24 21:00 12/12/24 07:45 Aspirin 81 Mg Tablet.Dr PO 12/03/25 20:59 81 mg BID CHRISTOPHER Administration Atorvastatin Calcium 10 mg 12/03/24 22:00 12/11/24 21:34 Atorvastatin 10 Mg Tablet PO 12/03/25 21:59 10 mg HS CHRISTOPHER Administration Bisacodyl 10 mg 12/03/24 16:45 Bisacodyl 10 Mg Supp.Rect MO 12/03/25 16:44 DAILY PRN Constipation Budesonide/Formoterol Fumarate 2 puff 12/04/24 21:00 12/12/24 06:16 Budesonide/Formoterol 160-4.5 Mcg 60 Puff/6 Gm Hfa.Aer.Ad INHALATION 12/04/25 20:59 2 puff BID CHRISTOPHER Administration Calcium Carbonate 1 tab 12/03/24 21:00 12/12/24 07:46 Calcium Carbonate/Vitamin D3 500 Mg/200 Unit Tablet PO 12/03/25 20:59 1 tab BID CHRISTOPHER Administration Diclofenac Sodium 75 mg 12/04/24 09:00 12/12/24 07:46 Diclofenac Sodium 75 Mg Tablet.Dr PO 12/04/25 08:59 75 mg DAILY CHRISTOPHER Administration Diphenhydramine HCl 25 mg 12/03/24 22:00 12/11/24 21:34 Diphenhydramine 25 Mg Capsule PO 12/03/25 21:59 25 mg QHS CHRISTOPHER Administration Docusate Sodium 100 mg 12/03/24 16:45 12/03/24 18:13 Docusate 100 Mg Capsule PO 12/03/25 16:44 100 mg BID PRN Administration Constipation Docusate Sodium 283 mg 12/03/24 16:45 Docusate Enema 283 Mg/5 Ml Enema MO 12/03/25 16:44 DAILY PRN Constipation Isosorbide Mononitrate 30 mg 12/04/24 09:00 12/12/24 07:46 Isosorbide Mononitrate 24hr Er 30 Mg Tab.Er.24h PO 12/04/25 08:59 30 mg QAM CHRISTOPHER Administration Lactulose 30 gm 12/03/24 16:45 Lactulose 20 Gm/30 Ml Udc PO 12/03/25 16:44 DAILY PRN Constipation Levothyroxine Sodium 250 mcg 12/04/24 06:30 12/12/24 05:56 Levothyroxine 125 Mcg Tablet PO 12/04/25 06:29 250 mcg DAILY.0630 CHRISTOPHER Administration Melatonin 10 mg 12/03/24 22:00 12/11/24 21:34 Melatonin 5 Mg Tablet PO 12/03/25 21:59 10 mg QHS CHRISTOPHER Administration Metoprolol Tartrate 50 mg 12/03/24 21:00 12/12/24 07:47 Metoprolol Tartrate 50 Mg Tablet PO 12/03/25 20:59 50 mg BID CHRISTOPHER Administration Oxycodone HCl 10 mg 12/03/24 17:53 12/12/24 07:45 Oxycodone Ir 5 Mg Tablet PO 10 mg Q4HR PRN Administration Pain Scale 6 - 10 Oxycodone HCl 5 mg 12/03/24 17:55 Oxycodone Ir 5 Mg Tablet PO Q4HR PRN Pain Pantoprazole Sodium 40 mg 12/05/24 09:35 12/12/24 07:46 Pantoprazole 40 Mg Tablet.Dr PO 12/05/25 09:34 40 mg DAILY CHRISTOPHER Administration Polyethylene Glycol 17 gm 12/04/24 09:00 12/12/24 07:47 Polyethylene Glycol 3350 17 Gm Powd.Pack PO 12/04/25 08:59 Not Given DAILY CHRISTOPHER Rivaroxaban 10 mg 12/04/24 09:00 12/12/24 07:46 Rivaroxaban 10 Mg Tablet PO 12/04/25 08:59 10 mg DAILY CHRISTOPHER Administration Senna/Docusate Sodium 2 tab 12/03/24 21:00 12/12/24 07:47 Sennosides/Docusate 8.6-50mg 1 Tab Tablet PO 12/03/25 20:59 Not Given BID CHRISTOPHER Sodium Chloride 0 ml 12/03/24 16:45 Sodium Chloride 0.9 % 10 Ml Syringe IV-PUSH 12/03/25 16:44 PRN PRN Flush Tamsulosin HCl 0.4 mg 12/04/24 09:00 12/12/24 07:46 Tamsulosin 0.4 Mg Cap.Er.24h PO 12/04/25 08:59 0.4 mg DAILY CHRISTOPHER Administration Tizanidine HCl 4 mg 12/03/24 22:00 12/11/24 21:34 Tizanidine 4 Mg Tablet PO 12/03/25 21:59 4 mg HS CHRISTOPHER Administration Topiramate 100 mg 12/04/24 09:00 12/12/24 07:46 Topiramate 100 Mg Tablet PO 12/04/25 08:59 100 mg QAM CHRISTOPHER Administration Topiramate 200 mg 12/03/24 22:00 12/11/24 21:34 Topiramate 100 Mg Tablet PO 12/03/25 21:59 200 mg HS CHRISTOPHER Administration Assessment/Plan Assessment/Plan (1) S/P total hip arthroplasty: (2) Seizure disorder: (3) Alcohol dependence: (4) Hypothyroidism: (5) BPH (benign prostatic hyperplasia): (6) HTN (hypertension): Plan Mr. Trejo is a 59 year old male with a past medical history of right hip AVN, hypertension, seizure disorder, BPH, loop recorder placed 08/2024, GERD, asthma overlap COPD and hypothyroidism who was admitted to the inpatient rehab unit sp posterior approach right total hip arthroplasty with preop course complicated by subcapital femoral neck fracture AVN. - No acute concerns or complaints. Clinically stable. - Progressing towards goals in therapy. DC this weekend Seizure disorder?continue Topamax 100 g p.o. daily, 200 mg p.o. nightly Alcohol dependence?Reports no cravings. monitor vitals, symptoms daily. Asthma and COPD?albuterol as needed for shortness of breath, start symbicort maintenance inhaler Hypertension?metoprolol 50 mg twice daily Hyperthyroidism?250 mcg daily Postoperative Pain?tylenol, oxycodone every 4 hours as needed Muscle Spasm?tizanidine 4 mg nightly BPH?tamsulosin 0.4 mg daily Constipation, chronic?docusate as needed daily Continue home meds?aspirin Recommend he start at least 3 hours daily, at least 5 days/week, of physical andoccupational therapy, with additional therapy as needed to address functional impairment related to above documented medical conditions and facilitate community discharge home in a timely fashion. Patient has medical complexity that cannot be best managed at a lower level of care and requires at least 3 times weekly encounters with group supervisor yard for medical management and for plan of care review / changes. I spent 25 minutes for services, including niqp-hk-epal encounter with the patient, discussion of the case, plan of care, and exam; and [id number] activities, such as reviewing pertinent technical sales consultant documentation, recent therapynotes, laboratory and radiology studies, and discussion of case with care team including physician, nursing, disability case manager, and therapists. More than 50 % of time was spent on patient/family counseling or coordination ofcare. Documented By: Paco Jimenez MD 5 Signed By: <Electronically signed by Paco Jimenez MD> 12/12/24 1316 [facility] Work Phone: [phone]) 199-352305-30-2025 [place] [id number] Phys[place]ry(Rehab) Progress Note Signed Patient: Rehan Trejo MR#: [id number] : 1965 Acct:[id number] Age/Sex: 59 / M Adm Date: 5 Loc: 5T Room: 5X7604-1 Type: ADM IN Attending Dr: Paco Jimenez MD Copies to: ~ Date of Service: 12/12/2024 Subjective Subjective Narrative: Mr. Trejo is a 59 year old male with a past medical history of right hip AVN, hypertension, seizure disorder, BPH, loop recorder placed 08/2024, GERD, asthma overlap COPD and hypothyroidism who was admitted to the inpatient rehab unit sp posterior approach right total hip arthroplasty with preop course complicated by subcapital femoral neck fracture AVN. Rehan was examined this morning seatedupright on side of bed with physical therapy session in progress. Mentions responsibilities at homecaring for his , mother and amrsag-ce-rvl. Shares insight into mechanism of injury of the rightquad tear 18 months ago with reinjury 2 to 3 weeks ago followed by fall in process of sit?stand from chair at home. Mentions near complete dependence on upper extremity for sit/stand. He is uncomfortable, moaning in pain and exhausted by simple posturing while seated upright bedside. Requests his inhaler. Reports no sleep overnight due topersistent high pain levels in both hips, Rgreater than L. Left hip pain and lower extremity weakness stable, chronic. Right hip pain new on chronic 8?9/10 and worse with minimal movement but is motivated and managing to work through the pain. Interval history: Patient examined today while working with therapy. He appears in no distress. Spouse present for FI. No major concerns today. Patient is doing well. Plan is for DC home this weekend. Review of Systems Review of Systems All other systems reviewed & are negative unless noted below or in HPI Exam Physical Exam Vital Signs: Temp Pulse Resp BP Pulse Ox O2 Del Method 98.2 F 86 16 125/78 95 Room Air 12/12/24 07:22 12/12/24 07:22 12/12/24 05:55 12/12/24 07:22 12/12/24 07:22 12/12/24 07:22 Narrative: NAD Extremities well perfused No respiratory distress Abdomen soft non distended TRU Slight edema RLE Mood is normal Speech is normal Objective Labs 12/04/24 03:41 12/04/24 03:41 Medications and Allergies Allergies and Active Meds: Allergies Penicillins Allergy (Severe, Verified 12/02/24 12:30) Swelling of Throat, Rash procaine (From Novocain) Allergy (Verified 12/02/24 12:30) Unknown Reaction strawberry Allergy (Verified 12/02/24 12:30) Unknown Reaction Active Medications Generic Name Dose Route Start Last Admin Trade Name Freq PRN Reason Stop Dose Admin Acetaminophen 1,000 mg 12/03/24 22:00 12/12/24 05:56 Acetaminophen 500 Mg Tablet PO 12/03/25 21:59 1,000 mg Q8H CHRISTOPHER Administration Al Hydrox/Mg Hydrox/Simethicone 30 ml 12/03/24 16:45 12/05/24 17:52 Mag Hydrox/Al Hydrox/Simeth 30 Ml Udc PO 12/03/25 16:44 30 ml Q4H PRN Administration Indigestion Ascorbic Acid 500 mg 12/04/24 08:00 12/12/24 07:46 Ascorbic Acid 500 Mg Tablet PO 12/04/25 07:59 500 mg BID.WITH.MEALS CHRISTOPHER Administration Aspirin 81 mg 12/03/24 21:00 12/12/24 07:45 Aspirin 81 Mg Tablet. PO 12/03/25 20:59 81 mg BID CHRISTOPHER Administration Atorvastatin Calcium 10 mg 12/03/24 22:00 12/11/24 21:34 Atorvastatin 10 Mg Tablet PO 12/03/25 21:59 10 mg HS CHRISTOPHER Administration Bisacodyl 10 mg 12/03/24 16:45 Bisacodyl 10 Mg Supp.Rect MO 12/03/25 16:44 DAILY PRN Constipation Budesonide/Formoterol Fumarate 2 puff 12/04/24 21:00 12/12/24 06:16 Budesonide/Formoterol 160-4.5 Mcg 60 Puff/6 Gm Hfa.Aer.Ad INHALATION 12/04/25 20:59 2 puff BID CHRISTOPHER Administration Calcium Carbonate 1 tab 12/03/24 21:00 12/12/24 07:46 Calcium Carbonate/Vitamin D3 500 Mg/200 Unit Tablet PO 12/03/25 20:59 1 tab BID CHRISTOPHER Administration Diclofenac Sodium 75 mg 12/04/24 09:00 12/12/24 07:46 Diclofenac Sodium 75 Mg Tablet. PO 12/04/25 08:59 75 mg DAILY CHRISTOPHER Administration Diphenhydramine HCl 25 mg 12/03/24 22:00 12/11/24 21:34 Diphenhydramine 25 Mg Capsule PO 12/03/25 21:59 25 mg QHS CHRISTOPHER Administration Docusate Sodium 100 mg 12/03/24 16:45 12/03/24 18:13 Docusate 100 Mg Capsule PO 12/03/25 16:44 100 mg BID PRN Administration Constipation Docusate Sodium 283 mg 12/03/24 16:45 Docusate Enema 283 Mg/5 Ml Enema MO 12/03/25 16:44 DAILY PRN Constipation Isosorbide Mononitrate 30 mg 12/04/24 09:00 12/12/24 07:46 Isosorbide Mononitrate 24hr Er 30 Mg Tab.Er.24h PO 12/04/25 08:59 30 mg QAM CHRISTOPHER Administration Lactulose 30 gm 12/03/24 16:45 Lactulose 20 Gm/30 Ml Udc PO 12/03/25 16:44 DAILY PRN Constipation Levothyroxine Sodium 250 mcg 12/04/24 06:30 12/12/24 05:56 Levothyroxine 125 Mcg Tablet PO 12/04/25 06:29 250 mcg DAILY.0630 [facility] Administration Melatonin 10 mg 12/03/24 22:00 12/11/24 21:34 Melatonin 5 Mg Tablet PO 12/03/25 21:59 10 mg QHS CHRISTOPHER Administration Metoprolol Tartrate 50 mg 12/03/24 21:00 12/12/24 07:47 Metoprolol Tartrate 50 Mg Tablet PO 12/03/25 20:59 50 mg BID CHRISTOPHER Administration Oxycodone HCl 10 mg 12/03/24 17:53 12/12/24 07:45 Oxycodone Ir 5 Mg Tablet PO 10 mg Q4HR PRN Administration Pain Scale 6 - 10 Oxycodone HCl 5 mg 12/03/24 17:55 Oxycodone Ir 5 Mg Tablet PO Q4HR PRN Pain Pantoprazole Sodium 40 mg 12/05/24 09:35 12/12/24 07:46 Pantoprazole 40 Mg Tablet.Dr PO 12/05/25 09:34 40 mg DAILY CHRISTOPHER Administration Polyethylene Glycol 17 gm 12/04/24 09:00 12/12/24 07:47 Polyethylene Glycol 3350 17 Gm Powd.Pack PO 12/04/25 08:59 Not Given DAILY CHRISTOPHER Rivaroxaban 10 mg 12/04/24 09:00 12/12/24 07:46 Rivaroxaban 10 Mg Tablet PO 12/04/25 08:59 10 mg DAILY CHRISTOPHER Administration Senna/Docusate Sodium 2 tab 12/03/24 21:00 12/12/24 07:47 Sennosides/Docusate 8.6-50mg 1 Tab Tablet PO 12/03/25 20:59 Not Given BID CHRISTOPHER Sodium Chloride 0 ml 12/03/24 16:45 Sodium Chloride 0.9 % 10 Ml Syringe IV-PUSH 12/03/25 16:44 PRN PRN Flush Tamsulosin HCl 0.4 mg 12/04/24 09:00 12/12/24 07:46 Tamsulosin 0.4 Mg Cap.Er.24h PO 12/04/25 08:59 0.4 mg DAILY CHRISTOPHER Administration Tizanidine HCl 4 mg 12/03/24 22:00 12/11/24 21:34 Tizanidine 4 Mg Tablet PO 12/03/25 21:59 4 mg HS CHRISTOPHER Administration Topiramate 100 mg 12/04/24 09:00 12/12/24 07:46 Topiramate 100 Mg Tablet PO 12/04/25 08:59 100 mg QAM CHRISTOPHER Administration Topiramate 200 mg 12/03/24 22:00 12/11/24 21:34 Topiramate 100 Mg Tablet PO 12/03/25 21:59 200 mg HS CHRISTOPHER Administration Assessment/Plan Assessment/Plan (1) S/P total hip arthroplasty: (2) Seizure disorder: (3) Alcohol dependence: (4) Hypothyroidism: (5) BPH (benign prostatic hyperplasia): (6) HTN (hypertension): Plan Mr. Trejo is a 59 year old male with a past medical history of right hip AVN, hypertension, seizure disorder, BPH, loop recorder placed 08/2024, GERD, asthma overlap COPD and hypothyroidism who was admitted to the inpatient rehab unit sp posterior approach right total hip arthroplasty with preop course complicated by subcapital femoral neck fracture AVN. - No acute concerns or complaints. Clinically stable. - Progressing towards goals in therapy. DC this weekend Seizure disorder?continue Topamax 100 g p.o. daily, 200 mg p.o. nightly Alcohol dependence?Reports no cravings. monitor vitals, symptoms daily. Asthma and COPD?albuterol as needed for shortness of breath, start symbicort maintenance inhaler Hypertension?metoprolol 50 mg twice daily Hyperthyroidism?250 mcg daily Postoperative Pain?tylenol, oxycodone every 4 hours as needed Muscle Spasm?tizanidine 4 mg nightly BPH?tamsulosin 0.4 mg daily Constipation, chronic?docusate as needed daily Continue home meds?aspirin Recommend he start at least 3 hours daily, at least 5 days/week, of physical andoccupational therapy, with additional therapy as needed to address functional impairment related to above documented medical conditions and facilitate community discharge home in a timely fashion. Patient has medical complexity that cannot be best managed at a lower level of care and requires at least 3 times weekly encounters with group supervisor yard for medical management and for plan of care review / changes. I spent 25 minutes for services, including [id number]-rk-[id number] encounter with the patient, discussion of the case, plan of care, and exam; and pkxqgqv-[id number]-rlam activities, such as reviewing pertinent technical sales consultant documentation, recent therapynotes, laboratory and radiology studies, and discussion of case with care team including physician, nursing, disability case manager, and therapists. More than 50 % of time was spent on patient/family counseling or coordination ofcare. Documented By: Paco Jimenez MD 1315 Signed By: 12/12/24 1316 [facility]05-30-2025 Radiology Diagnostic study note [place] [address] Ultrasound Report Signed Patient: Rehan Trejo MR#: [id number] : 1965 Acct:[id number] Age/Sex: 59 / M ADM Date: 5 Loc: Room: [address] [place] [address] Type: ADM IN Attending Dr: Paco Jimenez MD Ordering Provider: Gloria Arrington APRN Date of Service: 12/10/24 US/US venous duplex LE RT: swelling, postop Copies to: MD Gloria Silva APRN~ RIGHT LOWER EXTREMITY VENOUS DUPLEX INDICATION: Painful swollen right leg Unilateral right lower extremity venous duplex Doppler study was obtained utilizing B-mode, color-flow and spectral Doppler. FINDINGS: The right common femoral, femoral, and popliteal veins showed adequate compressibility, color-flow and augmentation. The right posterior tibial and peroneal veins were compressible, as wellas proximal greater saphenous vein. The contralateral left common femoral vein was compressible with color-flow and augmentation. US/US venous duplex LE RT IMPRESSION: NO EVIDENCE OF DEEP VENOUS THROMBOSIS IN THE RIGHT LOWER EXTREMITY. NO SUPERFICIAL THROMBOPHLEBITISWAS NOTED. Impression dictated by: Zaire Donnelly M.D. 12/12/2024 11:17 AM Dictation Location: [facility]04 Tech: Ana Rosa Morsetyra Transcribed By: NORI 12/12/241116 Dictated By: Zaire Donnelly MD 12/12/241116 Signed By: 12/12/24 111 [facility] Work Phone: [phone]) 352-195405-29-2025 Progress note Author Reshma Marin [facility] Note Date/Time December 11, 2024 5:24p m [facility] [address] [place] [address] Hospitalist Progress Note Signed Patient: Rehan Trejo MR#: [id number] : 1965 Acct:[id number] Age/Sex: 59 / M Adm Date: 5 Loc: Room: 3G2351-3 Type: ADM IN Attending Dr: Paco Jimenez MD Copies to: ~ Date of Service: 12/11/2024 Subjective Subjective Narrative: Seen and evaluated on follow-up, has been doing well with physical therapy and is scheduled to discharge home on Sunday. Reporting increased pain today, ambulated in hallway, pain is now improved at rest. Vital signs reviewed, bloodpressure well-controlled. Sodium of 131 and hemoglobin 11.3 on 12/04, no new labs this week Exam Physical Exam Vital Signs: Temp Pulse Resp BP Pulse Ox O2 Del Method 98.0 F 74 16 132/78 100 Room Air 12/11/24 07:56 12/11/24 07:56 12/11/24 07:56 12/11/24 07:56 12/11/24 07:56 12/11/24 07:56 Narrative: CONST-alert, awake resting comfortably in bed CARDIAC?normal rate, regular rhythm, normal S1 & S2. PULM?diminished without wheeze or rhonchi, RA, no accessory muscle use or cough noted ABD ? Soft. Bowel sounds are normal. No distention No tenderness EXTREM?right hip tenderness and swelling SKIN?incision site clean dry and intact Objective Lab Results 12/04/24 03:41 12/04/24 03:41 Meds Allergies and Active Meds Allergies Penicillins Allergy (Severe, Verified 12/02/24 12:30) Swelling of Throat, Rash procaine (From Novocain) Allergy (Verified 12/02/24 12:30) Unknown Reaction strawberry Allergy (Verified 12/02/24 12:30) Unknown Reaction Active Meds: Active Medications Generic Name Dose Route Start Last Admin Trade Name Freq PRN Reason Stop Dose Admin Acetaminophen 1,000 mg 12/03/24 22:00 12/11/24 14:45 Acetaminophen 500 Mg Tablet PO 12/03/25 21:59 1,000 mg Q8H CHRISTOPHER Administration Al Hydrox/Mg Hydrox/Simethicone 30 ml 12/03/24 16:45 12/05/24 17:52 Mag Hydrox/Al Hydrox/Simeth 30 Ml Udc PO 12/03/25 16:44 30 ml Q4H PRN Administration Indigestion Ascorbic Acid 500 mg 12/04/24 08:00 12/11/24 07:57 Ascorbic Acid 500 Mg Tablet PO 12/04/25 07:59 500 mg BID.WITH.MEALS CHRISTOPHER Administration Aspirin 81 mg 12/03/24 21:00 12/11/24 07:59 Aspirin 81 Mg Tablet.Dr PO 12/03/25 20:59 81 mg BID CHRISTOPHER Administration Atorvastatin Calcium 10 mg 12/03/24 22:00 12/10/24 20:34 Atorvastatin 10 Mg Tablet PO 12/03/25 21:59 10 mg HS CHRISTOPHER Administration Bisacodyl 10 mg 12/03/24 16:45 Bisacodyl 10 Mg Supp.Rect MO 12/03/25 16:44 DAILY PRN Constipation Budesonide/Formoterol Fumarate 2 puff 12/04/24 21:00 12/11/24 06:39 Budesonide/Formoterol 160-4.5 Mcg 60 Puff/6 Gm Hfa.Aer.Ad INHALATION 12/04/25 20:59 2 puff BID CHRISTOPHER Administration Calcium Carbonate 1 tab 12/03/24 21:00 12/11/24 07:59 Calcium Carbonate/Vitamin D3 500 Mg/200 Unit Tablet PO 12/03/25 20:59 1 tab BID CHRISTOPHER Administration Diclofenac Sodium 75 mg 12/04/24 09:00 12/11/24 07:59 Diclofenac Sodium 75 Mg Tablet.Dr PO 12/04/25 08:59 75 mg DAILY CHRISTOPHER Administration Diphenhydramine HCl 25 mg 12/03/24 22:00 12/10/24 20:34 Diphenhydramine 25 Mg Capsule PO 12/03/25 21:59 25 mg QHS CHRISTOPHER Administration Docusate Sodium 100 mg 12/03/24 16:45 12/03/24 18:13 Docusate 100 Mg Capsule PO 12/03/25 16:44 100 mg BID PRN Administration Constipation Docusate Sodium 283 mg 12/03/24 16:45 Docusate Enema 283 Mg/5 Ml Enema MO 12/03/25 16:44 DAILY PRN Constipation Isosorbide Mononitrate 30 mg 12/04/24 09:00 12/11/24 07:59 Isosorbide Mononitrate 24hr Er 30 Mg Tab.Er.24h PO 12/04/25 08:59 30 mg QAM CHRISTOPHER Administration Lactulose 30 gm 12/03/24 16:45 Lactulose 20 Gm/30 Ml Udc PO 12/03/25 16:44 DAILY PRN Constipation Levothyroxine Sodium 250 mcg 12/04/24 06:30 12/11/24 05:50 Levothyroxine 125 Mcg Tablet PO 12/04/25 06:29 250 mcg DAILY.0630 CHRISTOPHER Administration Melatonin 10 mg 12/03/24 22:00 12/10/24 20:34 Melatonin 5 Mg Tablet PO 12/03/25 21:59 10 mg QHS CHRISTOPHER Administration Metoprolol Tartrate 50 mg 12/03/24 21:00 12/11/24 07:59 Metoprolol Tartrate 50 Mg Tablet PO 12/03/25 20:59 50 mg BID CHRISTOPHER Administration Oxycodone HCl 10 mg 12/03/24 17:53 12/11/24 12:49 Oxycodone Ir 5 Mg Tablet PO 10 mg Q4HR PRN Administration Pain Scale 6 - 10 Oxycodone HCl 5 mg 12/03/24 17:55 Oxycodone Ir 5 Mg Tablet PO Q4HR PRN Pain Pantoprazole Sodium 40 mg 12/05/24 09:35 12/11/24 07:59 Pantoprazole 40 Mg Tablet.Dr PO 12/05/25 09:34 40 mg DAILY CHRISTOPHER Administration Polyethylene Glycol 17 gm 12/04/24 09:00 12/11/24 08:00 Polyethylene Glycol 3350 17 Gm Powd.Pack PO 12/04/25 08:59 Not Given DAILY CHRISTOPHER Rivaroxaban 10 mg 12/04/24 09:00 12/11/24 07:59 Rivaroxaban 10 Mg Tablet PO 12/04/25 08:59 10 mg DAILY CHRISTOPHER Administration Senna/Docusate Sodium 2 tab 12/03/24 21:00 12/11/24 07:59 Sennosides/Docusate 8.6-50mg 1 Tab Tablet PO 12/03/25 20:59 2 tab BID CHRISTOPHER Administration Sodium Chloride 0 ml 12/03/24 16:45 Sodium Chloride 0.9 % 10 Ml Syringe IV-PUSH 12/03/25 16:44 PRN PRN Flush Tamsulosin HCl 0.4 mg 12/04/24 09:00 12/11/24 07:59 Tamsulosin 0.4 Mg Cap.Er.24h PO 12/04/25 08:59 0.4 mg DAILY CHRISTOPHER Administration Tizanidine HCl 4 mg 12/03/24 22:00 12/10/24 20:34 Tizanidine 4 Mg Tablet PO 12/03/25 21:59 4 mg HS CHRISTOPHER Administration Topiramate 100 mg 12/04/24 09:00 12/11/24 07:59 Topiramate 100 Mg Tablet PO 12/04/25 08:59 100 mg QAM CHRISTOPHER Administration Topiramate 200 mg 12/03/24 22:00 12/10/24 20:34 Topiramate 100 Mg Tablet PO 12/03/25 21:59 200 mg HS CHRISTOPHER Administration A&P - Hospitalist Assessment/Plan (1) Closed right hip fracture: (2) Avascular necrosis: (3) S/P total hip arthroplasty: (4) Seizure disorder: (5) Hypothyroidism: (6) BPH (benign prostatic hyperplasia): (7) HTN (hypertension): (8) Hyperlipidemia: (9) COPD (chronic obstructive pulmonary disease): (10) CAD (coronary artery disease): Plan Right femoral head fracture with avascular necrosis s/p right hip arthroplasty 12/02/2024 Postoperative anemia - Further plan of care per PMR team for rehabilitative therapy, pain control bowel regimen, DVT prophylaxis, surgical wound care - Please address postoperative questions/concerns to orthopedics team, postoperative antibiotic/vitamin?mineral therapy per Ortho preference - Patient was not previously on chronic rivaroxaban this is for DVT prophylaxis initiated while inpatient - Hemoglobin 11.3 on 12/04, preop hemoglobin 13.6, continue to monitor Chronic conditions 1. Hypertension?metoprolol. BP well-controlled, continue to monitor 2. Hyperlipidemia?atorvastatin 3. COPD/asthma?budesonide/formoterol 4. CAD history MS?isosorbide, metoprolol, aspirin 5. Hypothyroid?levothyroxine 6. BPH?tamsulosin 7. Seizures?Topiramate Documented By: Reshma Marin APRN 12/11/24 1633 Signed By: <Electronically signed by KB Marin> 12/11/24 1646 <Electronically signed by Connor Oliveros DO> 12/11/24 1724 [facility] Work Phone: 1(284) 453-434005-29-2025 [place] [address] Hospitalist Progress Note Signed Patient: Rehan Trjeo MR#: [id number] : 1965 Acct:[id number] Age/Sex: 59 / M Adm Date: 5 Loc: Room: 6U6021-5 Type: ADM IN Attending Dr: Paco Jimenez MD Copies to: ~ Date of Service: 12/11/2024 Subjective Subjective Narrative: Seen and evaluated on follow-up, has been doing well with physical therapy and is scheduled to discharge home on Sunday. Reporting increased pain today, ambulated in hallway, pain is now improved at rest. Vital signs reviewed, bloodpressure well-controlled. Sodium of 131 and hemoglobin 11.3 on 12/04, no new labs this week Exam Physical Exam Vital Signs: Temp Pulse Resp BP Pulse Ox O2 Del Method 98.0 F 74 16 132/78 100 Room Air 12/11/24 07:56 12/11/24 07:56 12/11/24 07:56 12/11/24 07:56 12/11/24 07:56 12/11/24 07:56 Narrative: CONST-alert, awake resting comfortably in bed CARDIAC?normal rate, regular rhythm, normal S1 & S2. PULM?diminished without wheeze or rhonchi, RA, no accessory muscle use or cough noted ABD ? Soft. Bowel sounds are normal. No distention No tenderness EXTREM?right hip tenderness and swelling SKIN?incision site clean dry and intact Objective Lab Results 12/04/24 03:41 12/04/24 03:41 Meds Allergies and Active Meds Allergies Penicillins Allergy (Severe, Verified 12/02/24 12:30) Swelling of Throat, Rash procaine (From Novocain) Allergy (Verified 12/02/24 12:30) Unknown Reaction strawberry Allergy (Verified 12/02/24 12:30) Unknown Reaction Active Meds: Active Medications Generic Name Dose Route Start Last Admin Trade Name Freq PRN Reason Stop Dose Admin Acetaminophen 1,000 mg 12/03/24 22:00 12/11/24 14:45 Acetaminophen 500 Mg Tablet PO 12/03/25 21:59 1,000 mg Q8H CHRISTOPHER Administration Al Hydrox/Mg Hydrox/Simethicone 30 ml 12/03/24 16:45 12/05/24 17:52 Mag Hydrox/Al Hydrox/Simeth 30 Ml Udc PO 12/03/25 16:44 30 ml Q4H PRN Administration Indigestion Ascorbic Acid 500 mg 12/04/24 08:00 12/11/24 07:57 Ascorbic Acid 500 Mg Tablet PO 12/04/25 07:59 500 mg BID.WITH.MEALS CHRISTOPHER Administration Aspirin 81 mg 12/03/24 21:00 12/11/24 07:59 Aspirin 81 Mg Tablet.Dr PO 12/03/25 20:59 81 mg BID CHRISTOPHER Administration Atorvastatin Calcium 10 mg 12/03/24 22:00 12/10/24 20:34 Atorvastatin 10 Mg Tablet PO 12/03/25 21:59 10 mg HS CHRISTOPHER Administration Bisacodyl 10 mg 12/03/24 16:45 Bisacodyl 10 Mg Supp.Rect MO 12/03/25 16:44 DAILY PRN Constipation Budesonide/Formoterol Fumarate 2 puff 12/04/24 21:00 12/11/24 06:39 Budesonide/Formoterol 160-4.5 Mcg 60 Puff/6 Gm Hfa.Aer.Ad INHALATION 12/04/25 20:59 2 puff BID CHRISTOPHER Administration Calcium Carbonate 1 tab 12/03/24 21:00 12/11/24 07:59 Calcium Carbonate/Vitamin D3 500 Mg/200 Unit Tablet PO 12/03/25 20:59 1 tab BID CHRISTOPHER Administration Diclofenac Sodium 75 mg 12/04/24 09:00 12/11/24 07:59 Diclofenac Sodium 75 Mg Tablet.Dr PO 12/04/25 08:59 75 mg DAILY CHRISTOPHER Administration Diphenhydramine HCl 25 mg 12/03/24 22:00 12/10/24 20:34 Diphenhydramine 25 Mg Capsule PO 12/03/25 21:59 25 mg QHS CHRISTOPHER Administration Docusate Sodium 100 mg 12/03/24 16:45 12/03/24 18:13 Docusate 100 Mg Capsule PO 12/03/25 16:44 100 mg BID PRN Administration Constipation Docusate Sodium 283 mg 12/03/24 16:45 Docusate Enema 283 Mg/5 Ml Enema MO 12/03/25 16:44 DAILY PRN Constipation Isosorbide Mononitrate 30 mg 12/04/24 09:00 12/11/24 07:59 Isosorbide Mononitrate 24hr Er 30 Mg Tab.Er.24h PO 12/04/25 08:59 30 mg QAM CHRISTOPHER Administration Lactulose 30 gm 12/03/24 16:45 Lactulose 20 Gm/30 Ml Udc PO 12/03/25 16:44 DAILY PRN Constipation Levothyroxine Sodium 250 mcg 12/04/24 06:30 12/11/24 05:50 Levothyroxine 125 Mcg Tablet PO 12/04/25 06:29 250 mcg DAILY.0630 CHRISTOPHER Administration Melatonin 10 mg 12/03/24 22:00 12/10/24 20:34 Melatonin 5 Mg Tablet PO 12/03/25 21:59 10 mg QHS CHRISTOPHER Administration Metoprolol Tartrate 50 mg 12/03/24 21:00 12/11/24 07:59 Metoprolol Tartrate 50 Mg Tablet PO 12/03/25 20:59 50 mg BID CHRISTOPHER Administration Oxycodone HCl 10 mg 12/03/24 17:53 12/11/24 12:49 Oxycodone Ir 5 Mg Tablet PO 10 mg Q4HR PRN Administration Pain Scale 6 - 10 Oxycodone HCl 5 mg 12/03/24 17:55 Oxycodone Ir 5 Mg Tablet PO Q4HR PRN Pain Pantoprazole Sodium 40 mg 12/05/24 09:35 12/11/24 07:59 Pantoprazole 40 Mg Tablet.Dr PO 12/05/25 09:34 40 mg DAILY CHRISTOPHER Administration Polyethylene Glycol 17 gm 12/04/24 09:00 12/11/24 08:00 Polyethylene Glycol 3350 17 Gm Powd.Pack PO 12/04/25 08:59 Not Given DAILY CHRISTOPHER Rivaroxaban 10 mg 12/04/24 09:00 12/11/24 07:59 Rivaroxaban 10 Mg Tablet PO 12/04/25 08:59 10 mg DAILY CHRISTOPHER Administration Senna/Docusate Sodium 2 tab 12/03/24 21:00 12/11/24 07:59 Sennosides/Docusate 8.6-50mg 1 Tab Tablet PO 12/03/25 20:59 2 tab BID CHRISTOPHER Administration Sodium Chloride 0 ml 12/03/24 16:45 Sodium Chloride 0.9 % 10 Ml Syringe IV-PUSH 12/03/25 16:44 PRN PRN Flush Tamsulosin HCl 0.4 mg 12/04/24 09:00 12/11/24 07:59 Tamsulosin 0.4 Mg Cap.Er.24h PO 12/04/25 08:59 0.4 mg DAILY CHRISTOPHER Administration Tizanidine HCl 4 mg 12/03/24 22:00 12/10/24 20:34 Tizanidine 4 Mg Tablet PO 12/03/25 21:59 4 mg HS CHRISTOPHER Administration Topiramate 100 mg 12/04/24 09:00 12/11/24 07:59 Topiramate 100 Mg Tablet PO 12/04/25 08:59 100 mg QAM CHRISTOPHER Administration Topiramate 200 mg 12/03/24 22:00 12/10/24 20:34 Topiramate 100 Mg Tablet PO 12/03/25 21:59 200 mg HS CHRISTOPHER Administration A&P - Hospitalist Assessment/Plan (1) Closed right hip fracture: (2) Avascular necrosis: (3) S/P total hip arthroplasty: (4) Seizure disorder: (5) Hypothyroidism: (6) BPH (benign prostatic hyperplasia): (7) HTN (hypertension): (8) Hyperlipidemia: (9) COPD (chronic obstructive pulmonary disease): (10) CAD (coronary artery disease): Plan Right femoral head fracture with avascular necrosis s/p right hip arthroplasty 12/02/2024 Postoperative anemia - Further plan of care per PMR team for rehabilitative therapy, pain control bowel regimen, DVT prophylaxis, surgical wound care - Please address postoperative questions/concerns to orthopedics team, postoperative antibiotic/vitamin?mineral therapy per Ortho preference - Patient was not previously on chronic rivaroxaban this is for DVT prophylaxis initiated while inpatient - Hemoglobin 11.3 on 12/04, preop hemoglobin 13.6, continue to monitor Chronic conditions 1. Hypertension?metoprolol. BP well-controlled, continue to monitor 2. Hyperlipidemia?atorvastatin 3. COPD/asthma?budesonide/formoterol 4. CAD history MS?isosorbide, metoprolol, aspirin 5. Hypothyroid?levothyroxine 6. BPH?tamsulosin 7. Seizures?Topiramate Documented By: Reshma Marin APRN 12/11/24 1633 Signed By: 12/11/24 1646 12/11/24 1724 [facility]05-29-2025 Progress note Author Paco Jimenez [facility] Note Date/Time December 11, 2024 12:44 pm [facility] [address] [place] [address] Physiatry(Rehab) Progress Note Signed Patient: Rehan Trejo MR#: [id number] : 1965 Acct:[id number] Age/Sex: 59 / M Adm Date: 5 Loc: Room: 7S5361-3 Type: ADM IN Attending Dr: Paco Jimenez MD Copies to: ~ Date of Service: 12/11/2024 Subjective Subjective Narrative: Mr. Trejo is a 59 year old male with a past medical history of right hip AVN, hypertension, seizure disorder, BPH, loop recorder placed 08/2024, GERD, asthma overlap COPD and hypothyroidism who was admitted to the inpatient rehab unit sp posterior approach right total hip arthroplasty with preop course complicated by subcapital femoral neck fracture AVN. Rehan was examined this morning seated upright on side of bed with physical therapy session in progress. Mentions responsibilities at home caring for his , mother and [id number]. Shares insight into mechanism of injury of the right quad tear 18 months ago with reinjury 2 to 3 weeks ago followed by fall in process of sit?stand from chair at home. Mentions near complete dependence on upper extremity for sit/stand. He is uncomfortable, moaning in pain and exhausted by simple posturing while seated upright bedside. Requests his inhaler. Reports no sleep overnight due topersistent high pain levels in both hips, R greater than L. Left hip pain and lower extremity weakness stable, chronic. Right hip pain new on chronic 8?03/25 and worse with minimal movement but is motivated and managing to work through the pain. Interval history: Patient examined in his room while sitting up in bed. Comfortable no complaints.In no distress. Denies major concerns today, slight hip pain. Tolerating therapywell. Exam Physical Exam Vital Signs: Temp Pulse Resp BP Pulse Ox O2 Del Method 98.0 F 74 16 132/78 100 Room Air 12/11/24 07:56 12/11/24 07:56 12/11/24 07:56 12/11/24 07:56 12/11/24 07:56 12/11/24 07:56 Narrative: General: Awake, alert, in no acute distress HEENT: head atraumatic, normocephalic, moist mucous membranes Neck: No JVD, supple no masses, no tracheal deviation CVS: Audible S1/S2, regular rate and rhythm, no murmurs or gallops Respiratory: clear without wheezing or crackles heard and with symmetric expansion GI: soft, nondistended, nontender, positive bowel sounds with no organomegaly Extremity: Mild edema RLE, well perfused Neuro: AOx3, CN II-VII intact. No tremor, sensation intact Skin: dry, intact no rashes or lesions Objective Labs 12/04/24 03:41 12/04/24 03:41 Medications and Allergies Allergies and Active Meds: Allergies Penicillins Allergy (Severe, Verified 12/02/24 12:30) Swelling of Throat, Rash procaine (From Novocain) Allergy (Verified 12/02/24 12:30) Unknown Reaction strawberry Allergy (Verified 12/02/24 12:30) Unknown Reaction Active Medications Generic Name Dose Route Start Last Admin Trade Name Freq PRN Reason Stop Dose Admin Acetaminophen 1,000 mg 12/03/24 22:00 12/11/24 05:49 Acetaminophen 500 Mg Tablet PO 12/03/25 21:59 1,000 mg Q8H CHRISTOPHER Administration Al Hydrox/Mg Hydrox/Simethicone 30 ml 12/03/24 16:45 12/05/24 17:52 Mag Hydrox/Al Hydrox/Simeth 30 Ml Udc PO 12/03/25 16:44 30 ml Q4H PRN Administration Indigestion Ascorbic Acid 500 mg 12/04/24 08:00 12/11/24 07:57 Ascorbic Acid 500 Mg Tablet PO 12/04/25 07:59 500 mg BID.WITH.MEALS CHRISTOPHER Administration Aspirin 81 mg 12/03/24 21:00 12/11/24 07:59 Aspirin 81 Mg Tablet. PO 12/03/25 20:59 81 mg BID CHRISTOPHER Administration Atorvastatin Calcium 10 mg 12/03/24 22:00 12/10/24 20:34 Atorvastatin 10 Mg Tablet PO 12/03/25 21:59 10 mg HS CHRISTOPHER Administration Bisacodyl 10 mg 12/03/24 16:45 Bisacodyl 10 Mg Supp.Rect MO 12/03/25 16:44 DAILY PRN Constipation Budesonide/Formoterol Fumarate 2 puff 12/04/24 21:00 12/11/24 06:39 Budesonide/Formoterol 160-4.5 Mcg 60 Puff/6 Gm Hfa.Aer.Ad INHALATION 12/04/25 20:59 2 puff BID CHRISTOPHER Administration Calcium Carbonate 1 tab 12/03/24 21:00 12/11/24 07:59 Calcium Carbonate/Vitamin D3 500 Mg/200 Unit Tablet PO 12/03/25 20:59 1 tab BID CHRISTOPHER Administration Diclofenac Sodium 75 mg 12/04/24 09:00 12/11/24 07:59 Diclofenac Sodium 75 Mg Tablet. PO 12/04/25 08:59 75 mg DAILY CHRISTOPHER Administration Diphenhydramine HCl 25 mg 12/03/24 22:00 12/10/24 20:34 Diphenhydramine 25 Mg Capsule PO 12/03/25 21:59 25 mg QHS CHRISTOPHER Administration Docusate Sodium 100 mg 12/03/24 16:45 12/03/24 18:13 Docusate 100 Mg Capsule PO 12/03/25 16:44 100 mg BID PRN Administration Constipation Docusate Sodium 283 mg 12/03/24 16:45 Docusate Enema 283 Mg/5 Ml Enema MO 12/03/25 16:44 DAILY PRN Constipation Isosorbide Mononitrate 30 mg 12/04/24 09:00 12/11/24 07:59 Isosorbide Mononitrate 24hr Er 30 Mg Tab.Er.24h PO 12/04/25 08:59 30 mg QAM CHRISTOPHER Administration Lactulose 30 gm 12/03/24 16:45 Lactulose 20 Gm/30 Ml Udc PO 12/03/25 16:44 DAILY PRN Constipation Levothyroxine Sodium 250 mcg 12/04/24 06:30 12/11/24 05:50 Levothyroxine 125 Mcg Tablet PO 12/04/25 06:29 250 mcg DAILY.0630 CHRISTOPHER Administration Melatonin 10 mg 12/03/24 22:00 12/10/24 20:34 Melatonin 5 Mg Tablet PO 12/03/25 21:59 10 mg QHS CHRISTOPHER Administration Metoprolol Tartrate 50 mg 12/03/24 21:00 12/11/24 07:59 Metoprolol Tartrate 50 Mg Tablet PO 12/03/25 20:59 50 mg BID CHRISTOPHER Administration Oxycodone HCl 10 mg 12/03/24 17:53 12/11/24 05:49 Oxycodone Ir 5 Mg Tablet PO 10 mg Q4HR PRN Administration Pain Scale 6 - 10 Oxycodone HCl 5 mg 12/03/24 17:55 Oxycodone Ir 5 Mg Tablet PO Q4HR PRN Pain Pantoprazole Sodium 40 mg 12/05/24 09:35 12/11/24 07:59 Pantoprazole 40 Mg Tablet.Dr PO 12/05/25 09:34 40 mg DAILY CHRISTOPHER Administration Polyethylene Glycol 17 gm 12/04/24 09:00 12/11/24 08:00 Polyethylene Glycol 3350 17 Gm Powd.Pack PO 12/04/25 08:59 Not Given DAILY CHRISTOPHER Rivaroxaban 10 mg 12/04/24 09:00 12/11/24 07:59 Rivaroxaban 10 Mg Tablet PO 12/04/25 08:59 10 mg DAILY CHRISTOPHER Administration Senna/Docusate Sodium 2 tab 12/03/24 21:00 12/11/24 07:59 Sennosides/Docusate 8.6-50mg 1 Tab Tablet PO 12/03/25 20:59 2 tab BID CHRISTOPHER Administration Sodium Chloride 0 ml 12/03/24 16:45 Sodium Chloride 0.9 % 10 Ml Syringe IV-PUSH 12/03/25 16:44 PRN PRN Flush Tamsulosin HCl 0.4 mg 12/04/24 09:00 12/11/24 07:59 Tamsulosin 0.4 Mg Cap.Er.24h PO 12/04/25 08:59 0.4 mg DAILY CHRISTOPHER Administration Tizanidine HCl 4 mg 12/03/24 22:00 12/10/24 20:34 Tizanidine 4 Mg Tablet PO 12/03/25 21:59 4 mg HS CHRISTOPHER Administration Topiramate 100 mg 12/04/24 09:00 12/11/24 07:59 Topiramate 100 Mg Tablet PO 12/04/25 08:59 100 mg QAM CHRISTOPHER Administration Topiramate 200 mg 12/03/24 22:00 12/10/24 20:34 Topiramate 100 Mg Tablet PO 12/03/25 21:59 200 mg HS CHRISTOPHER Administration Assessment/Plan Assessment/Plan (1) S/P total hip arthroplasty: (2) Seizure disorder: (3) Alcohol dependence: (4) Hypothyroidism: (5) BPH (benign prostatic hyperplasia): (6) HTN (hypertension): Plan Mr. Trejo is a 59 year old male with a past medical history of right hip AVN, hypertension, seizure disorder, BPH, loop recorder placed 08/2024, GERD, asthma overlap COPD and hypothyroidism who was admitted to the inpatient rehab unit sp posterior approach right total hip arthroplasty with preop course complicated by subcapital femoral neck fracture AVN. - No acute concerns or complaints. Clinically stable. - Progressing towards goals in therapy. Need to arrange FI with family this week. Plan for DC home this weekend Seizure disorder?continue Topamax 100 g p.o. daily, 200 mg p.o. nightly Alcohol dependence?Reports no cravings. monitor vitals, symptoms daily. Asthma and COPD?albuterol as needed for shortness of breath, start symbicort maintenance inhaler Hypertension?metoprolol 50 mg twice daily Hyperthyroidism?250 mcg daily Postoperative Pain?tylenol, oxycodone every 4 hours as needed Muscle Spasm?tizanidine 4 mg nightly BPH?tamsulosin 0.4 mg daily Constipation, chronic?docusate as needed daily Continue home meds?aspirin Recommend he start at least 3 hours daily, at least 5 days/week, of physical andoccupational therapy, with additional therapy as needed to address functional impairment related to above documented medical conditions and facilitate community discharge home in a timely fashion. Patient has medical complexity that cannot be best managed at a lower level of care and requires at least 3 times weekly encounters with group supervisor yard for medical management and for plan of care review / changes. I spent 25 minutes for services, including [id number] encounter with the patient, discussion of the case, plan of care, and exam; and orxhoyo-qi-dody activities, such as reviewing pertinent technical sales consultant documentation, recent therapynotes, laboratory and radiology studies, and discussion of case with care team including physician, nursing, disability case manager, and therapists. More than 50 % of time was spent on patient/family counseling or coordination ofcare. <Statement entered by Paco Jimenez MD - 12/11/24 12:43> Patient was personally seen by me on the day of encounter, reviewed the history and performed ulloa elements of exam and formulated the plan of care and confirmedthe resident physician note, as above. Agree with above. Patient doing well today. Continued RLE edema. Prelim US negative for acute DVT. Discussed with nursing to wrap leg in SAMANTHA wrap. No othermajor concerns. Documented By: Paco Jimenez MD [id number] Signed By: <Electronically signed by Paco Jimenez MD> 12/11/24 1244 <Electronically signed by MD ANÍBAL Tracy> 12/11/24 1152 [facility] Work Phone: [phone] 129-781505-29-2025 [place] [id number] Phys[place]ry(Rehab) Progress Note Signed Patient: Rehan Trejo MR#: [id number] : 1965 Acct:[id number] Age/Sex: 59 / M Adm Date: 5 Loc: Room: [address] [place] [address] Type: ADM IN Attending Dr: Paco Jimenez MD Copies to: ~ Date of Service: 12/11/2024 Subjective Subjective Narrative: Mr. Trejo is a 59 year old male with a past medical history of right hip AVN, hypertension, seizure disorder, BPH, loop recorder placed 08/2024, GERD, asthma overlap COPD and hypothyroidism who was admitted to the inpatient rehab unit sp posterior approach right total hip arthroplasty with preop course complicated by subcapital femoral neck fracture AVN. Rehan was examined this morning seatedupright on side of bed with physical therapy session in progress. Mentions responsibilities at homecaring for his , mother and [id number]-[id number]. Shares insight into mechanism of injury of the rightquad tear 18 months ago with reinjury 2 to 3 weeks ago followed by fall in process of sit?stand from chair at home. Mentions near complete dependence on upper extremity for sit/stand. He is uncomfortable, moaning in pain and exhausted by simple posturing while seated upright bedside. Requests his inhaler. Reports no sleep overnight due topersistent high pain levels in both hips, Rgreater than L. Left hip pain and lower extremity weakness stable, chronic. Right hip pain new on chronic 8?9/10 and worse with minimal movement but is motivated and managing to work through the pain. Interval history: Patient examined in his room while sitting up in bed. Comfortable no complaints.In no distress. Denies major concerns today, slight hip pain. Tolerating therapywell. Exam Physical Exam Vital Signs: Temp Pulse Resp BP Pulse Ox O2 Del Method 98.0 F 74 16 132/78 100 Room Air 12/11/24 07:56 12/11/24 07:56 12/11/24 07:56 12/11/24 07:56 12/11/24 07:56 12/11/24 07:56 Narrative: General: Awake, alert, in no acute distress HEENT: head atraumatic, normocephalic, moist mucous membranes Neck: No JVD, supple no masses, no tracheal deviation CVS: Audible S1/S2, regular rate and rhythm, no murmurs or gallops Respiratory: clear without wheezing or crackles heard and with symmetric expansion GI: soft, nondistended, nontender, positive bowel sounds with no organomegaly Extremity: Mild edema RLE, well perfused Neuro: AOx3, CN II-VII intact. No tremor, sensation intact Skin: dry, intact no rashes or lesions Objective Labs 12/04/24 03:41 12/04/24 03:41 Medications and Allergies Allergies and Active Meds: Allergies Penicillins Allergy (Severe, Verified 12/02/24 12:30) Swelling of Throat, Rash procaine (From Novocain) Allergy (Verified 12/02/24 12:30) Unknown Reaction strawberry Allergy (Verified 12/02/24 12:30) Unknown Reaction Active Medications Generic Name Dose Route Start Last Admin Trade Name Freq PRN Reason Stop Dose Admin Acetaminophen 1,000 mg 12/03/24 22:00 12/11/24 05:49 Acetaminophen 500 Mg Tablet PO 12/03/25 21:59 1,000 mg Q8H CHRISTOPHER Administration Al Hydrox/Mg Hydrox/Simethicone 30 ml 12/03/24 16:45 12/05/24 17:52 Mag Hydrox/Al Hydrox/Simeth 30 Ml Udc PO 12/03/25 16:44 30 ml Q4H PRN Administration Indigestion Ascorbic Acid 500 mg 12/04/24 08:00 12/11/24 07:57 Ascorbic Acid 500 Mg Tablet PO 12/04/25 07:59 500 mg BID.WITH.MEALS CHRISTOPHER Administration Aspirin 81 mg 12/03/24 21:00 12/11/24 07:59 Aspirin 81 Mg Tablet.Dr PO 12/03/25 20:59 81 mg BID CHRISTOPHER Administration Atorvastatin Calcium 10 mg 12/03/24 22:00 12/10/24 20:34 Atorvastatin 10 Mg Tablet PO 12/03/25 21:59 10 mg HS CHRISTOPHER Administration Bisacodyl 10 mg 12/03/24 16:45 Bisacodyl 10 Mg Supp.Rect MO 12/03/25 16:44 DAILY PRN Constipation Budesonide/Formoterol Fumarate 2 puff 12/04/24 21:00 12/11/24 06:39 Budesonide/Formoterol 160-4.5 Mcg 60 Puff/6 Gm Hfa.Aer.Ad INHALATION 12/04/25 20:59 2 puff BID CHRISTOPHER Administration Calcium Carbonate 1 tab 12/03/24 21:00 12/11/24 07:59 Calcium Carbonate/Vitamin D3 500 Mg/200 Unit Tablet PO 12/03/25 20:59 1 tab BID CHRISTOPHER Administration Diclofenac Sodium 75 mg 12/04/24 09:00 12/11/24 07:59 Diclofenac Sodium 75 Mg Tablet.Dr PO 12/04/25 08:59 75 mg DAILY CHRISTOPHER Administration Diphenhydramine HCl 25 mg 12/03/24 22:00 12/10/24 20:34 Diphenhydramine 25 Mg Capsule PO 12/03/25 21:59 25 mg QHS CHRISTOPHER Administration Docusate Sodium 100 mg 12/03/24 16:45 12/03/24 18:13 Docusate 100 Mg Capsule PO 12/03/25 16:44 100 mg BID PRN Administration Constipation Docusate Sodium 283 mg 12/03/24 16:45 Docusate Enema 283 Mg/5 Ml Enema MO 12/03/25 16:44 DAILY PRN Constipation Isosorbide Mononitrate 30 mg 12/04/24 09:00 12/11/24 07:59 Isosorbide Mononitrate 24hr Er 30 Mg Tab.Er.24h PO 12/04/25 08:59 30 mg QAM CHRISTOPHER Administration Lactulose 30 gm 12/03/24 16:45 Lactulose 20 Gm/30 Ml Udc PO 12/03/25 16:44 DAILY PRN Constipation Levothyroxine Sodium 250 mcg 12/04/24 06:30 12/11/24 05:50 Levothyroxine 125 Mcg Tablet PO 12/04/25 06:29 250 mcg DAILY.0630 CHRISTOPHER Administration Melatonin 10 mg 12/03/24 22:00 12/10/24 20:34 Melatonin 5 Mg Tablet PO 12/03/25 21:59 10 mg QHS CHRISTOPHER Administration Metoprolol Tartrate 50 mg 12/03/24 21:00 12/11/24 07:59 Metoprolol Tartrate 50 Mg Tablet PO 12/03/25 20:59 50 mg BID CHRISTOPHER Administration Oxycodone HCl 10 mg 12/03/24 17:53 12/11/24 05:49 Oxycodone Ir 5 Mg Tablet PO 10 mg Q4HR PRN Administration Pain Scale 6 - 10 Oxycodone HCl 5 mg 12/03/24 17:55 Oxycodone Ir 5 Mg Tablet PO Q4HR PRN Pain Pantoprazole Sodium 40 mg 12/05/24 09:35 12/11/24 07:59 Pantoprazole 40 Mg Tablet. PO 12/05/25 09:34 40 mg DAILY CHRISTOPHER Administration Polyethylene Glycol 17 gm 12/04/24 09:00 12/11/24 08:00 Polyethylene Glycol 3350 17 Gm Powd.Pack PO 12/04/25 08:59 Not Given DAILY CHRISTOPHER Rivaroxaban 10 mg 12/04/24 09:00 12/11/24 07:59 Rivaroxaban 10 Mg Tablet PO 12/04/25 08:59 10 mg DAILY CHRISTOPHER Administration Senna/Docusate Sodium 2 tab 12/03/24 21:00 12/11/24 07:59 Sennosides/Docusate 8.6-50mg 1 Tab Tablet PO 12/03/25 20:59 2 tab BID CHRISTOPHER Administration Sodium Chloride 0 ml 12/03/24 16:45 Sodium Chloride 0.9 % 10 Ml Syringe IV-PUSH 12/03/25 16:44 PRN PRN Flush Tamsulosin HCl 0.4 mg 12/04/24 09:00 12/11/24 07:59 Tamsulosin 0.4 Mg Cap.Er.24h PO 12/04/25 08:59 0.4 mg DAILY CHRISTOPHER Administration Tizanidine HCl 4 mg 12/03/24 22:00 12/10/24 20:34 Tizanidine 4 Mg Tablet PO 12/03/25 21:59 4 mg HS CHRISTOPHER Administration Topiramate 100 mg 12/04/24 09:00 12/11/24 07:59 Topiramate 100 Mg Tablet PO 12/04/25 08:59 100 mg QAM CHRISTOPHER Administration Topiramate 200 mg 12/03/24 22:00 12/10/24 20:34 Topiramate 100 Mg Tablet PO 12/03/25 21:59 200 mg HS CHRISTOPHER Administration Assessment/Plan Assessment/Plan (1) S/P total hip arthroplasty: (2) Seizure disorder: (3) Alcohol dependence: (4) Hypothyroidism: (5) BPH (benign prostatic hyperplasia): (6) HTN (hypertension): Plan Mr. Trejo is a 59 year old male with a past medical history of right hip AVN, hypertension, seizure disorder, BPH, loop recorder placed 08/2024, GERD, asthma overlap COPD and hypothyroidism who was admitted to the inpatient rehab unit sp posterior approach right total hip arthroplasty with preop course complicated by subcapital femoral neck fracture AVN. - No acute concerns or complaints. Clinically stable. - Progressing towards goals in therapy. Need to arrange FI with family this week. Plan for DC home this weekend Seizure disorder?continue Topamax 100 g p.o. daily, 200 mg p.o. nightly Alcohol dependence?Reports no cravings. monitor vitals, symptoms daily. Asthma and COPD?albuterol as needed for shortness of breath, start symbicort maintenance inhaler Hypertension?metoprolol 50 mg twice daily Hyperthyroidism?250 mcg daily Postoperative Pain?tylenol, oxycodone every 4 hours as needed Muscle Spasm?tizanidine 4 mg nightly BPH?tamsulosin 0.4 mg daily Constipation, chronic?docusate as needed daily Continue home meds?aspirin Recommend he start at least 3 hours daily, at least 5 days/week, of physical andoccupational therapy, with additional therapy as needed to address functional impairment related to above documented medical conditions and facilitate community discharge home in a timely fashion. Patient has medical complexity that cannot be best managed at a lower level of care and requires at least 3 times weekly encounters with group supervisor yard for medical management and for plan of care review / changes. I spent 25 minutes for services, including aica-ox-vvyh encounter with the patient, discussion of the case, plan of care, and exam; and [id number] activities, such as reviewing pertinent technical sales consultant documentation, recent therapynotes, laboratory and radiology studies, and discussion of case with care team including physician, nursing, disability case manager, and therapists. More than 50 % of time was spent on patient/family counseling or coordination ofcare. Patient was personally seen by me on the day of encounter, reviewed the history and performed ulloa elements of exam and formulated the plan of care and confirmedthe resident physician note, as above. Agree with above. Patient doing well today. Continued RLE edema. Prelim US negative for acute DVT. Discussed with nursing to wrap leg in SAMANTHA wrap. No othermajor concerns. Documented By: Paco Jimenez MD [id number] Signed By: 12/11/24 1244 12/11/24 1151 [facility]05-28-2025 Progress note Author Gloria Arrington [facility] Note Date/Time December 10, 2024 1:56p m [facility] [address] [place] [address] Physiatry(Rehab) Progress Note Signed Patient: Rehan Trejo MR#: [id number] : 1965 Acct:[id number] Age/Sex: 59 / M Adm Date: 5 Loc: Room: [address] [place] [address] Type: ADM IN Attending Dr: Paco Jimenez MD Copies to: ~ Date of Service: 12/10/2024 Subjective Subjective Narrative: Mr. Trejo is a 59 year old male with a past medical history of right hip AVN, hypertension, seizure disorder, BPH, loop recorder placed 08/2024, GERD, asthma overlap COPD and hypothyroidism who was admitted to the inpatient rehab unit sp posterior approach right total hip arthroplasty with preop course complicated by subcapital femoral neck fracture AVN. Rehan was examined this morning seated upright on side of bed with physical therapy session in progress. Mentions responsibilities at home caring for his , mother and tnmxcw-[id number]-sjo. Shares insight into mechanism of injury of the right quad tear 18 months ago with reinjury 2 to 3 weeks ago followed by fall in process of sit?stand from chair at home. Mentions near complete dependence on upper extremity for sit/stand. He is uncomfortable, moaning in pain and exhausted by simple posturing while seated upright bedside. Requests his inhaler. Reports no sleep overnight due topersistent high pain levels in both hips, R greater than L. Left hip pain and lower extremity weakness stable, chronic. Right hip pain new on chronic 8?9/10 and worse with minimal movement but is motivated and managing to work through the pain. Interval history: Patient was seen and evaluated in his room while resting in bed. States, he felt a little rough in therapy today. Reports some stiffness in the operativejoint and some upper leg muscle soreness. The right hip incision appears unremarkable, well-approximated without surrounding erythema or incisional drainage. There is adjacent hematoma that is tender to palpation, although doesnot appear to be enlarging. Right leg does look somewhat more edematous today. I will obtain an ultrasound of the extremity. Will also order compression stockings to help with the swelling. Review of Systems Review of Systems All other systems reviewed & are negative unless noted below or in HPI Exam Physical Exam Vital Signs: Temp Pulse Resp BP Pulse Ox O2 Del Method 98 F 78 12 142/85 H 100 Room Air 12/10/24 07:46 12/10/24 07:46 12/10/24 07:46 12/10/24 07:46 12/10/24 07:46 12/10/24 07:46 Narrative: General: Awake, alert, oriented x3 HENT: Normal to inspection, normocephalic, atraumatic Eyes: PERRL, normal conjunctiva and sclera Neck: Normal ROM, normal visual inspection. Trachea midline. Cardio: Regular heart rate and rhythm Respiratory: Clear to auscultation bilaterally. Normal respiratory effort. No respiratory distress. GI: Abdomen soft, nontender, nondistended, active bowel sounds x4 quadrants Neuro: CN II-XII intact. Strength 5/5, equal bilaterally Extremities: No edema, erythema, cyanosis. Surgical incision to the right hip, covered with Tegaderm, no drainage or surrounding erythema noted. Psych: Mood and affect appropriate. Normal speech. Objective Labs 12/04/24 03:41 12/04/24 03:41 Additional Results Results Comments: I reviewed clinical lab tests, radiology reports and obtained and summated medical records and have ordered follow up lab tests and imaging studies as needed for rehabilitation care. Medications and Allergies Allergies and Active Meds: Allergies Penicillins Allergy (Severe, Verified 12/02/24 12:30) Swelling of Throat, Rash procaine (From Novocain) Allergy (Verified 12/02/24 12:30) Unknown Reaction strawberry Allergy (Verified 12/02/24 12:30) Unknown Reaction Active Medications Generic Name Dose Route Start Last Admin Trade Name Freq PRN Reason Stop Dose Admin Acetaminophen 1,000 mg 12/03/24 22:00 12/10/24 05:34 Acetaminophen 500 Mg Tablet PO 12/03/25 21:59 1,000 mg Q8H CHRISTOPHER Administration Al Hydrox/Mg Hydrox/Simethicone 30 ml 12/03/24 16:45 12/05/24 17:52 Mag Hydrox/Al Hydrox/Simeth 30 Ml Udc PO 12/03/25 16:44 30 ml Q4H PRN Administration Indigestion Ascorbic Acid 500 mg 12/04/24 08:00 12/10/24 09:44 Ascorbic Acid 500 Mg Tablet PO 12/04/25 07:59 500 mg BID.WITH.MEALS CHRISTOPHER Administration Aspirin 81 mg 12/03/24 21:00 12/10/24 09:44 Aspirin 81 Mg Tablet.Dr PO 12/03/25 20:59 81 mg BID CHRISTOPHER Administration Atorvastatin Calcium 10 mg 12/03/24 22:00 12/09/24 20:59 Atorvastatin 10 Mg Tablet PO 12/03/25 21:59 10 mg HS CHRISTOPHER Administration Bisacodyl 10 mg 12/03/24 16:45 Bisacodyl 10 Mg Supp.Rect MO 12/03/25 16:44 DAILY PRN Constipation Budesonide/Formoterol Fumarate 2 puff 12/04/24 21:00 12/10/24 06:19 Budesonide/Formoterol 160-4.5 Mcg 60 Puff/6 Gm Hfa.Aer.Ad INHALATION 12/04/25 20:59 2 puff BID CHRISTOPHER Administration Calcium Carbonate 1 tab 12/03/24 21:00 12/10/24 09:44 Calcium Carbonate/Vitamin D3 500 Mg/200 Unit Tablet PO 12/03/25 20:59 1 tab BID CHRISTOPHER Administration Diclofenac Sodium 75 mg 12/04/24 09:00 12/10/24 09:43 Diclofenac Sodium 75 Mg Tablet. PO 12/04/25 08:59 75 mg DAILY CHRISTOPHER Administration Diphenhydramine HCl 25 mg 12/03/24 22:00 12/09/24 20:59 Diphenhydramine 25 Mg Capsule PO 12/03/25 21:59 25 mg QHS CHRISTOPHER Administration Docusate Sodium 100 mg 12/03/24 16:45 12/03/24 18:13 Docusate 100 Mg Capsule PO 12/03/25 16:44 100 mg BID PRN Administration Constipation Docusate Sodium 283 mg 12/03/24 16:45 Docusate Enema 283 Mg/5 Ml Enema MO 12/03/25 16:44 DAILY PRN Constipation Doxycycline Hyclate 100 mg 12/03/24 21:00 12/10/24 09:43 Doxycycline Hyclate 100 Mg Tablet PO 12/10/24 20:59 100 mg BID CHRISTOPHER Administration Isosorbide Mononitrate 30 mg 12/04/24 09:00 12/10/24 09:44 Isosorbide Mononitrate 24hr Er 30 Mg Tab.Er.24h PO 12/04/25 08:59 30 mg QAM CHRISTOPHER Administration Lactulose 30 gm 12/03/24 16:45 Lactulose 20 Gm/30 Ml Udc PO 12/03/25 16:44 DAILY PRN Constipation Levothyroxine Sodium 250 mcg 12/04/24 06:30 12/10/24 05:34 Levothyroxine 125 Mcg Tablet PO 12/04/25 06:29 250 mcg DAILY.0630 CHRISTOPHER Administration Melatonin 10 mg 12/03/24 22:00 12/09/24 20:59 Melatonin 5 Mg Tablet PO 12/03/25 21:59 10 mg QHS CHRISTOPHER Administration Metoprolol Tartrate 50 mg 12/03/24 21:00 12/10/24 09:45 Metoprolol Tartrate 50 Mg Tablet PO 12/03/25 20:59 50 mg BID CHRISTOPHER Administration Oxycodone HCl 10 mg 12/03/24 17:53 12/10/24 09:44 Oxycodone Ir 5 Mg Tablet PO 10 mg Q4HR PRN Administration Pain Scale 6 - 10 Oxycodone HCl 5 mg 12/03/24 17:55 Oxycodone Ir 5 Mg Tablet PO Q4HR PRN Pain Pantoprazole Sodium 40 mg 12/05/24 09:35 12/10/24 09:43 Pantoprazole 40 Mg Tablet.Dr PO 12/05/25 09:34 40 mg DAILY CHRISTOPHER Administration Polyethylene Glycol 17 gm 12/04/24 09:00 12/10/24 09:45 Polyethylene Glycol 3350 17 Gm Powd.Pack PO 12/04/25 08:59 Not Given DAILY CHRISTOPHER Rivaroxaban 10 mg 12/04/24 09:00 12/10/24 09:44 Rivaroxaban 10 Mg Tablet PO 12/04/25 08:59 10 mg DAILY CHRISTOPHER Administration Senna/Docusate Sodium 2 tab 12/03/24 21:00 12/10/24 09:45 Sennosides/Docusate 8.6-50mg 1 Tab Tablet PO 12/03/25 20:59 Not Given BID CHRISTOPHER Sodium Chloride 0 ml 12/03/24 16:45 Sodium Chloride 0.9 % 10 Ml Syringe IV-PUSH 12/03/25 16:44 PRN PRN Flush Tamsulosin HCl 0.4 mg 12/04/24 09:00 12/10/24 09:44 Tamsulosin 0.4 Mg Cap.Er.24h PO 12/04/25 08:59 0.4 mg DAILY CHRISTOPHER Administration Tizanidine HCl 4 mg 12/03/24 22:00 12/09/24 20:59 Tizanidine 4 Mg Tablet PO 12/03/25 21:59 4 mg HS CHRISTOPHER Administration Topiramate 100 mg 12/04/24 09:00 12/10/24 09:45 Topiramate 100 Mg Tablet PO 12/04/25 08:59 100 mg QAM CHRISTOPHER Administration Topiramate 200 mg 12/03/24 22:00 12/09/24 20:59 Topiramate 100 Mg Tablet PO 12/03/25 21:59 200 mg HS CHRISTOPHER Administration Assessment/Plan Assessment/Plan (1) S/P total hip arthroplasty: (2) Seizure disorder: (3) Alcohol dependence: (4) Hypothyroidism: (5) BPH (benign prostatic hyperplasia): (6) HTN (hypertension): (7) Avascular necrosis: (8) Closed right hip fracture: (9) Impaired mobility and activities of daily living: Plan #Mr. Trejo is a 59 year old male with a past medical history of right hip AVN, hypertension, seizure disorder, BPH, loop recorder placed 08/2024, GERD, asthma overlap COPD and hypothyroidism who was admitted to the inpatient rehab unit sp posterior approach right total hip arthroplasty with preop course complicated by subcapital femoral neck fracture AVN. - Venous ultrasound of the right lower extremity to rule out a DVT. - Samantha wrap/KWAKU hose to the right leg to help with swelling. - Continues to do well in therapy. Ambulatory functional distances with a walker and SBA. Plan is to DC over the weekend if remains clinically stable. Seizure disorder?continue Topamax 100 g p.o. daily, 200 mg p.o. nightly Alcohol dependence?Reports no cravings. monitor vitals, symptoms daily. Asthma and COPD?albuterol as needed for shortness of breath, start symbicort maintenance inhaler Hypertension?metoprolol 50 mg twice daily Hyperthyroidism?250 mcg daily Postoperative Pain?tylenol, oxycodone every 4 hours as needed Muscle Spasm?tizanidine 4 mg nightly BPH?tamsulosin 0.4 mg daily Constipation, chronic?docusate as needed daily Continue home meds?aspirin Recommend he start at least 3 hours daily, at least 5 days/week, of physical andoccupational therapy, with additional therapy as needed to address functional impairment related to above documented medical conditions and facilitate community discharge home in a timely fashion. Patient has medical complexity that cannot be best managed at a lower level of care and requires at least 3 times weekly encounters with group supervisor yard for medical management and for plan of care review / changes. I spent 19 minutes for services, including lgiy-[id number] encounter with the patient, discussion of the case, plan of care, and exam; and gexusyu-kr-lcnx activities, such as reviewing pertinent technical sales consultant documentation, recent therapynotes, laboratory and radiology studies, and discussion of case with care team including physician, nursing, disability case manager, and therapists. More than 50 % of time was spent on patient/family counseling or coordination ofcare. <Statement entered by Paco Jimenez MD - 12/10/24 13:56> Patient was personally seen by me, Dr. Jimenez, on the day of encounter, reviewed the history and the relevant portions of the chart, including current orders, allied health and technical sales consultant notes, labs/imaging and performed ulloa elements of exam and I formulated the plan of care and facilitated the medical decision making. I completed a substantive portion of this encounter, the medical decision makingportion of this note in its entirety, including Allied health note review, nursing note review, technical sales consultant note review, discussion with nursing and case management, and more than 50% of my time was spent on counseling and coordination of care, time spent 20 minutes Documented By: Gloria Arrington APRN 12/10/24 0 959 Signed By: <Electronically signed by KB Arrington> 12/10/24 1003 <Electronically signed by Paco Jimenez MD> 12/10/24 4546 [facility] Work Phone: [phone]) 930-504205-28-2025 [place] [address] Physiatry(Rehab) Progress Note Signed Patient: Rehan Trejo MR#: [id number] : 1965 Acct:[id number] Age/Sex: 59 / M Adm Date: 5 Loc: Room: 6J2395-3 Type: ADM IN Attending Dr: Paco Jimenez MD Copies to: ~ Date of Service: 12/10/2024 Subjective Subjective Narrative: Mr. Trejo is a 59 year old male with a past medical history of right hip AVN, hypertension, seizure disorder, BPH, loop recorder placed 08/2024, GERD, asthma overlap COPD and hypothyroidism who was admitted to the inpatient rehab unit sp posterior approach right total hip arthroplasty with preop course complicated by subcapital femoral neck fracture AVN. Rehan was examined this morning seatedupright on side of bed with physical therapy session in progress. Mentions responsibilities at homecaring for his , mother and utwqdx-by-pfq. Shares insight into mechanism of injury of the rightquad tear 18 months ago with reinjury 2 to 3 weeks ago followed by fall in process of sit?stand from chair at home. Mentions near complete dependence on upper extremity for sit/stand. He is uncomfortable, moaning in pain and exhausted by simple posturing while seated upright bedside. Requests his inhaler. Reports no sleep overnight due topersistent high pain levels in both hips, Rgreater than L. Left hip pain and lower extremity weakness stable, chronic. Right hip pain new on chronic 8?9/10 and worse with minimal movement but is motivated and managing to work through the pain. Interval history: Patient was seen and evaluated in his room while resting in bed. States, he felt a little rough in therapy today. Reports some stiffness in the operativejoint and some upper leg muscle soreness. The right hip incision appears unremarkable, well-approximated without surrounding erythema or incisional drainage. There is adjacent hematoma that is tender to palpation, although doesnot appear to be e nlarging. Right leg does look somewhat more edematous today. I will obtain an ultrasound of the extremity. Will also order compression stockings to help with the swelling. Review of Systems Review of Systems All other systems reviewed & are negative unless noted below or in HPI Exam Physical Exam Vital Signs: Temp Pulse Resp BP Pulse Ox O2 Del Method 98 F 78 12 142/85 H 100 Room Air 12/10/24 07:46 12/10/24 07:46 12/10/24 07:46 12/10/24 07:46 12/10/24 07:46 12/10/24 07:46 Narrative: General: Awake, alert, oriented x3 HENT: Normal to inspection, normocephalic, atraumatic Eyes: PERRL, normal conjunctiva and sclera Neck: Normal ROM, normal visual inspection. Trachea midline. Cardio: Regular heart rate and rhythm Respiratory: Clear to auscultation bilaterally. Normal respiratory effort. No respiratory distress. GI: Abdomen soft, nontender, nondistended, active bowel sounds x4 quadrants Neuro: CN II-XII intact. Strength 5/5, equal bilaterally Extremities: No edema, erythema, cyanosis. Surgical incision to the right hip, covered with Tegaderm, no drainage or surrounding erythema noted. Psych: Mood and affect appropriate. Normal speech. Objective Labs 12/04/24 03:41 12/04/24 03:41 Additional Results Results Comments: I reviewed clinical lab tests, radiology reports and obtained and summated medical records and haveordered follow up lab tests and imaging studies as needed for rehabilitation care. Medications and Allergies Allergies and Active Meds: Allergies Penicillins Allergy (Severe, Verified 12/02/24 12:30) Swelling of Throat, Rash procaine (From Novocain) Allergy (Verified 12/02/24 12:30) Unknown Reaction strawberry Allergy (Verified 12/02/24 12:30) Unknown Reaction Active Medications Generic Name Dose Route Start Last Admin Trade Name Freq PRN Reason Stop Dose Admin Acetaminophen 1,000 mg 12/03/24 22:00 12/10/24 05:34 Acetaminophen 500 Mg Tablet PO 12/03/25 21:59 1,000 mg Q8H CHRISTOPHER Administration Al Hydrox/Mg Hydrox/Simethicone 30 ml 12/03/24 16:45 12/05/24 17:52 Mag Hydrox/Al Hydrox/Simeth 30 Ml Udc PO 12/03/25 16:44 30 ml Q4H PRN Administration Indigestion Ascorbic Acid 500 mg 12/04/24 08:00 12/10/24 09:44 Ascorbic Acid 500 Mg Tablet PO 12/04/25 07:59 500 mg BID.WITH.MEALS CHRISTOPHER Administration Aspirin 81 mg 12/03/24 21:00 12/10/24 09:44 Aspirin 81 Mg Tablet. PO 12/03/25 20:59 81 mg BID CHRISTOPHER Administration Atorvastatin Calcium 10 mg 12/03/24 22:00 12/09/24 20:59 Atorvastatin 10 Mg Tablet PO 12/03/25 21:59 10 mg HS CHRISTOPHER Administration Bisacodyl 10 mg 12/03/24 16:45 Bisacodyl 10 Mg Supp.Rect MO 12/03/25 16:44 DAILY PRN Constipation Budesonide/Formoterol Fumarate 2 puff 12/04/24 21:00 12/10/24 06:19 Budesonide/Formoterol 160-4.5 Mcg 60 Puff/6 Gm Hfa.Aer.Ad INHALATION 12/04/25 20:59 2 puff BID CHRISTOPHER Administration Calcium Carbonate 1 tab 12/03/24 21:00 12/10/24 09:44 Calcium Carbonate/Vitamin D3 500 Mg/200 Unit Tablet PO 12/03/25 20:59 1 tab BID CHRISTOPHER Administration Diclofenac Sodium 75 mg 12/04/24 09:00 12/10/24 09:43 Diclofenac Sodium 75 Mg Tablet.Dr PO 12/04/25 08:59 75 mg DAILY CHRISTOPHER Administration Diphenhydramine HCl 25 mg 12/03/24 22:00 12/09/24 20:59 Diphenhydramine 25 Mg Capsule PO 12/03/25 21:59 25 mg QHS CHRISTOPHER Administration Docusate Sodium 100 mg 12/03/24 16:45 12/03/24 18:13 Docusate 100 Mg Capsule PO 12/03/25 16:44 100 mg BID PRN Administration Constipation Docusate Sodium 283 mg 12/03/24 16:45 Docusate Enema 283 Mg/5 Ml Enema MO 12/03/25 16:44 DAILY PRN Constipation Doxycycline Hyclate 100 mg 12/03/24 21:00 12/10/24 09:43 Doxycycline Hyclate 100 Mg Tablet PO 12/10/24 20:59 100 mg BID CHRISTOPHER Administration Isosorbide Mononitrate 30 mg 12/04/24 09:00 12/10/24 09:44 Isosorbide Mononitrate 24hr Er 30 Mg Tab.Er.24h PO 12/04/25 08:59 30 mg QAM CHRISTOPHER Administration Lactulose 30 gm 12/03/24 16:45 Lactulose 20 Gm/30 Ml Udc PO 12/03/25 16:44 DAILY PRN Constipation Levothyroxine Sodium 250 mcg 12/04/24 06:30 12/10/24 05:34 Levothyroxine 125 Mcg Tablet PO 12/04/25 06:29 250 mcg DAILY.0630 CHRISTOPHER Administration Melatonin 10 mg 12/03/24 22:00 12/09/24 20:59 Melatonin 5 Mg Tablet PO 12/03/25 21:59 10 mg QHS CHRISTOPHER Administration Metoprolol Tartrate 50 mg 12/03/24 21:00 12/10/24 09:45 Metoprolol Tartrate 50 Mg Tablet PO 12/03/25 20:59 50 mg BID CHRISTOPHER Administration Oxycodone HCl 10 mg 12/03/24 17:53 12/10/24 09:44 Oxycodone Ir 5 Mg Tablet PO 10 mg Q4HR PRN Administration Pain Scale 6 - 10 Oxycodone HCl 5 mg 12/03/24 17:55 Oxycodone Ir 5 Mg Tablet PO Q4HR PRN Pain Pantoprazole Sodium 40 mg 12/05/24 09:35 12/10/24 09:43 Pantoprazole 40 Mg Tablet.Dr PO 12/05/25 09:34 40 mg DAILY CHRISTOPHER Administration Polyethylene Glycol 17 gm 12/04/24 09:00 12/10/24 09:45 Polyethylene Glycol 3350 17 Gm Powd.Pack PO 12/04/25 08:59 Not Given DAILY CHRISTOPHER Rivaroxaban 10 mg 12/04/24 09:00 12/10/24 09:44 Rivaroxaban 10 Mg Tablet PO 12/04/25 08:59 10 mg DAILY CHRISTOPHER Administration Senna/Docusate Sodium 2 tab 12/03/24 21:00 12/10/24 09:45 Sennosides/Docusate 8.6-50mg 1 Tab Tablet PO 12/03/25 20:59 Not Given BID CHRISTOPHER Sodium Chloride 0 ml 12/03/24 16:45 Sodium Chloride 0.9 % 10 Ml Syringe IV-PUSH 12/03/25 16:44 PRN PRN Flush Tamsulosin HCl 0.4 mg 12/04/24 09:00 12/10/24 09:44 Tamsulosin 0.4 Mg Cap.Er.24h PO 12/04/25 08:59 0.4 mg DAILY CHRISTOPHER Administration Tizanidine HCl 4 mg 12/03/24 22:00 12/09/24 20:59 Tizanidine 4 Mg Tablet PO 12/03/25 21:59 4 mg HS CHRISTOPHER Administration Topiramate 100 mg 12/04/24 09:00 12/10/24 09:45 Topiramate 100 Mg Tablet PO 12/04/25 08:59 100 mg QAM CHRISTOPHER Administration Topiramate 200 mg 12/03/24 22:00 12/09/24 20:59 Topiramate 100 Mg Tablet PO 12/03/25 21:59 200 mg HS CHRISTOPHER Administration Assessment/Plan Assessment/Plan (1) S/P total hip arthroplasty: (2) Seizure disorder: (3) Alcohol dependence: (4) Hypothyroidism: (5) BPH (benign prostatic hyperplasia): (6) HTN (hypertension): (7) Avascular necrosis: (8) Closed right hip fracture: (9) Impaired mobility and activities of daily living: Plan #Mr. Trejo is a 59 year old male with a past medical history of right hip AVN, hypertension, seizure disorder, BPH, loop recorder placed 08/2024, GERD, asthma overlap COPD and hypothyroidism who was admitted to the inpatient rehab unit sp posterior approach right total hip arthroplasty with preop course complicated by subcapital femoral neck fracture AVN. - Venous ultrasound of the right lower extremity to rule out a DVT. - Samantha wrap/KWAKU hose to the right leg to help with swelling. - Continues to do well in therapy. Ambulatory functional distances with a walker and SBA. Plan is to DC over the weekend if remains clinically stable. Seizure disorder?continue Topamax 100 g p.o. daily, 200 mg p.o. nightly Alcohol dependence?Reports no cravings. monitor vitals, symptoms daily. Asthma and COPD?albuterol as needed for shortness of breath, start symbicort maintenance inhaler Hypertension?metoprolol 50 mg twice daily Hyperthyroidism?250 mcg daily Postoperative Pain?tylenol, oxycodone every 4 hours as needed Muscle Spasm?tizanidine 4 mg nightly BPH?tamsulosin 0.4 mg daily Constipation, chronic?docusate as needed daily Continue home meds?aspirin Recommend he start at least 3 hours daily, at least 5 days/week, of physical andoccupational therapy, with additional therapy as needed to address functional impairment related to above documented medical conditions and facilitate community discharge home in a timely fashion. Patient has medical complexity that cannot be best managed at a lower level of care and requires at least 3 times weekly encounters with group supervisor yard for medical management and for plan of care review / changes. I spent 19 minutes for services, including cobi-fh-orcz encounter with the patient, discussion of the case, plan of care, and exam; and dogpirz-kz-jmfi activities, such as reviewing pertinent technical sales consultant documentation, recent therapynotes, laboratory and radiology studies, and discussion of case with care team including physician, nursing, disability case manager, and therapists. More than 50 % of time was spent on patient/family counseling or coordination ofcare. Patient was personally seen by me, Dr. Jimenez, on the day of encounter, reviewed the history and the relevant portions of the chart, including current orders, allied health and technical sales consultant notes, labs/imaging and performed ulloa elements of exam and I formulated the plan of care and facilitated the medical decision making. I completed a substantive portion of this encounter, the medical decision makingportion of this note in its entirety, including Allied health note review, nursing note review, technical sales consultant note review,discussion with nursing and case management, and more than 50% of my time was spent on counseling and coordination of care, time spent 20 minutes Documented By: Gloria Arrington APRN 12/10/24 0 959 Signed By: 12/10/24 1003 12/10/24 1356 [facility]05-28-2025 Progress note Author Gloria Arrington [facility] Note Date/Time December 10, 2024 11:17 am [facility] [address] [place] [address] Physiatry(Rehab) Progress Note Signed Patient: Rehan Trejo MR#: [id number] : 1965 Acct:[id number] Age/Sex: 59 / M Adm Date: 5 Loc: Room: 7J4768-0 Type: ADM IN Attending Dr: Paco Jimenez MD Copies to: ~ Date of Service: 12/05/2024 Subjective Subjective Narrative: Mr. Trejo is a 59 year old male with a past medical history of right hip AVN, hypertension, seizure disorder, BPH, loop recorder placed 08/2024, GERD, asthma overlap COPD and hypothyroidism who was admitted to the inpatient rehab unit sp posterior approach right total hip arthroplasty with preop course complicated by subcapital femoral neck fracture AVN. Rehan was examined this morning seated upright on side of bed with physical therapy session in progress. Mentions responsibilities at home caring for his , mother and afelcg-xn-gkw. Shares insight into mechanism of injury of the right quad tear 18 months ago with reinjury 2 to 3 weeks ago followed by fall in process of sit?stand from chair at home. Mentions near complete dependence on upper extremity for sit/stand. He is uncomfortable, moaning in pain and exhausted by simple posturing while seated upright bedside. Requests his inhaler. Reports no sleep overnight due topersistent high pain levels in both hips, R greater than L. Left hip pain and lower extremity weakness stable, chronic. Right hip pain new on chronic 8?9/10 and worse with minimal movement but is motivated and managing to work through the pain. Interval history: Patient was seen and evaluated in his room while resting in bed. He is alert, oriented x 3, pleasant. Reports that pain in the hip is fairly well-controlled. surgical site is covered with the postoperative dressing without signs of surrounding erythema or drainage. No lower extremity swelling noted. He admits to bothersome GERD symptoms, takes Prilosec at home but has been off of it here in the hospital. I will start him on Protonix PO. He is doing relatively well in therapy. Ambulatory 72 feet with a walker and standby assistance, SBA with transfers. Review of Systems Review of Systems All other systems reviewed & are negative unless noted below or in HPI Exam Physical Exam Vital Signs: Temp Pulse Resp BP Pulse Ox O2 Del Method 97.7 F 70 18 122/75 99 Room Air 12/05/24 06:02 12/05/24 06:02 12/05/24 06:02 12/05/24 06:02 12/05/24 06:02 12/05/24 09:14 Narrative: General: Awake, alert, oriented x3 HENT: Normal to inspection, normocephalic, atraumatic Eyes: PERRL, normal conjunctiva and sclera Neck: Normal ROM, normal visual inspection. Trachea midline. Cardio: Regular heart rate and rhythm Respiratory: Clear to auscultation bilaterally. Normal respiratory effort. No respiratory distress. GI: Abdomen soft, nontender, nondistended, active bowel sounds x4 quadrants Neuro: CN II-XII intact. Strength 5/5, equal bilaterally Extremities: No edema, erythema, cyanosis. Surgical incision to the right hip, covered with Tegaderm, no drainage or surrounding erythema noted. Psych: Mood and affect appropriate. Normal speech. Objective Labs 12/04/24 03:41 12/04/24 03:41 Additional Results Results Comments: I reviewed clinical lab tests, radiology reports and obtained and summated medical records and have ordered follow up lab tests and imaging studies as needed for rehabilitation care. Medications and Allergies Allergies and Active Meds: Allergies Penicillins Allergy (Severe, Verified 12/02/24 12:30) Swelling of Throat, Rash procaine (From Novocain) Allergy (Verified 12/02/24 12:30) Unknown Reaction strawberry Allergy (Verified 12/02/24 12:30) Unknown Reaction Active Medications Generic Name Dose Route Start Last Admin Trade Name Freq PRN Reason Stop Dose Admin Acetaminophen 1,000 mg 12/03/24 22:00 12/05/24 06:05 Acetaminophen 500 Mg Tablet PO 12/03/25 21:59 1,000 mg Q8H CHRISTOPHER Administration Al Hydrox/Mg Hydrox/Simethicone 30 ml 12/03/24 16:45 12/05/24 09:06 Mag Hydrox/Al Hydrox/Simeth 30 Ml Udc PO 12/03/25 16:44 30 ml Q4H PRN Administration Indigestion Ascorbic Acid 500 mg 12/04/24 08:00 12/05/24 08:33 Ascorbic Acid 500 Mg Tablet PO 12/04/25 07:59 500 mg BID.WITH.MEALS CHRISTOPHER Administration Aspirin 81 mg 12/03/24 21:00 12/05/24 08:33 Aspirin 81 Mg Tablet.Dr PO 12/03/25 20:59 81 mg BID CHRISTOPHER Administration Atorvastatin Calcium 10 mg 12/03/24 22:00 12/04/24 21:26 Atorvastatin 10 Mg Tablet PO 12/03/25 21:59 10 mg HS CHRISTOPHER Administration Bisacodyl 10 mg 12/03/24 16:45 Bisacodyl 10 Mg Supp.Rect MO 12/03/25 16:44 DAILY PRN Constipation Budesonide/Formoterol Fumarate 2 puff 12/04/24 21:00 12/05/24 06:18 Budesonide/Formoterol 160-4.5 Mcg 60 Puff/6 Gm Hfa.Aer.Ad INHALATION 12/04/25 20:59 2 puff BID CHRISTOPHER Administration Calcium Carbonate 1 tab 12/03/24 21:00 12/05/24 08:33 Calcium Carbonate/Vitamin D3 500 Mg/200 Unit Tablet PO 12/03/25 20:59 1 tab BID CHRISTOPHER Administration Diclofenac Sodium 75 mg 12/04/24 09:00 12/05/24 08:33 Diclofenac Sodium 75 Mg Tablet.Dr PO 12/04/25 08:59 75 mg DAILY CHRISTOPHER Administration Diphenhydramine HCl 25 mg 12/03/24 22:00 12/04/24 21:28 Diphenhydramine 25 Mg Capsule PO 12/03/25 21:59 25 mg QHS CHRISTOPHER Administration Docusate Sodium 100 mg 12/03/24 16:45 12/03/24 18:13 Docusate 100 Mg Capsule PO 12/03/25 16:44 100 mg BID PRN Administration Constipation Docusate Sodium 283 mg 12/03/24 16:45 Docusate Enema 283 Mg/5 Ml Enema MO 12/03/25 16:44 DAILY PRN Constipation Doxycycline Hyclate 100 mg 12/03/24 21:00 12/05/24 08:33 Doxycycline Hyclate 100 Mg Tablet PO 12/10/24 20:59 100 mg BID CHRISTOPHER Administration Isosorbide Mononitrate 30 mg 12/04/24 09:00 12/05/24 08:33 Isosorbide Mononitrate 24hr Er 30 Mg Tab.Er.24h PO 12/04/25 08:59 30 mg QAM CHRISTOPHER Administration Lactulose 30 gm 12/03/24 16:45 Lactulose 20 Gm/30 Ml Udc PO 12/03/25 16:44 DAILY PRN Constipation Levothyroxine Sodium 250 mcg 12/04/24 06:30 12/05/24 06:05 Levothyroxine 125 Mcg Tablet PO 12/04/25 06:29 250 mcg DAILY.0630 CHRISTOPHER Administration Melatonin 10 mg 12/03/24 22:00 12/04/24 21:28 Melatonin 5 Mg Tablet PO 12/03/25 21:59 10 mg QHS CHRISTOPHER Administration Metoprolol Tartrate 50 mg 12/03/24 21:00 12/05/24 08:33 Metoprolol Tartrate 50 Mg Tablet PO 12/03/25 20:59 50 mg BID CHRISTOPHER Administration Oxycodone HCl 10 mg 12/03/24 17:53 12/05/24 06:05 Oxycodone Ir 5 Mg Tablet PO 10 mg Q4HR PRN Administration Pain Scale 6 - 10 Oxycodone HCl 5 mg 12/03/24 17:55 Oxycodone Ir 5 Mg Tablet PO Q4HR PRN Pain Pantoprazole Sodium 40 mg 12/05/24 09:35 12/05/24 10:36 Pantoprazole 40 Mg Tablet.Dr PO 12/05/25 09:34 40 mg DAILY CHRISTOPHER Administration Polyethylene Glycol 17 gm 12/04/24 09:00 12/05/24 08:33 Polyethylene Glycol 3350 17 Gm Powd.Pack PO 12/04/25 08:59 Not Given DAILY CHRISTOPHER Rivaroxaban 10 mg 12/04/24 09:00 12/05/24 08:33 Rivaroxaban 10 Mg Tablet PO 12/04/25 08:59 10 mg DAILY CHRISTOPHER Administration Senna/Docusate Sodium 2 tab 12/03/24 21:00 12/05/24 08:34 Sennosides/Docusate 8.6-50mg 1 Tab Tablet PO 12/03/25 20:59 Not Given BID CHRISTOPHER Sodium Chloride 0 ml 12/03/24 16:45 Sodium Chloride 0.9 % 10 Ml Syringe IV-PUSH 12/03/25 16:44 PRN PRN Flush Sodium Chloride 10 ml 12/04/24 09:00 12/05/24 09:06 Sodium Chloride 0.9 % 10 Ml Syringe IV-PUSH 12/04/25 08:59 10 ml BID CHRISTOPHER Administration Tamsulosin HCl 0.4 mg 12/04/24 09:00 12/05/24 08:33 Tamsulosin 0.4 Mg Cap.Er.24h PO 12/04/25 08:59 0.4 mg DAILY CHRISTOPHER Administration Tizanidine HCl 4 mg 12/03/24 22:00 12/04/24 21:28 Tizanidine 4 Mg Tablet PO 12/03/25 21:59 4 mg HS CHRISTOPHER Administration Topiramate 100 mg 12/04/24 09:00 12/05/24 08:33 Topiramate 100 Mg Tablet PO 12/04/25 08:59 100 mg QAM CHRISTOPHER Administration Topiramate 200 mg 12/03/24 22:00 12/04/24 21:27 Topiramate 100 Mg Tablet PO 12/03/25 21:59 200 mg HS CHRISTOPHER Administration Assessment/Plan Assessment/Plan (1) S/P total hip arthroplasty: (2) Seizure disorder: (3) Alcohol dependence: (4) Hypothyroidism: (5) BPH (benign prostatic hyperplasia): (6) HTN (hypertension): (7) Avascular necrosis: (8) Closed right hip fracture: (9) Impaired mobility and activities of daily living: Plan #Mr. Trejo is a 59 year old male with a past medical history of right hip AVN, hypertension, seizure disorder, BPH, loop recorder placed 08/2024, GERD, asthma overlap COPD and hypothyroidism who was admitted to the inpatient rehab unit sp posterior approach right total hip arthroplasty with preop course complicated by subcapital femoral neck fracture AVN. -Start Protonix 40 mg daily for GERD. -Continue current pain regimen. -Continue therapy as ordered. Seizure disorder?continue Topamax 100 g p.o. daily, 200 mg p.o. nightly Alcohol dependence?Reports no cravings. monitor vitals, symptoms daily. Asthma and COPD?albuterol as needed for shortness of breath, start symbicort maintenance inhaler Hypertension?metoprolol 50 mg twice daily Hyperthyroidism?250 mcg daily Postoperative Pain?tylenol, oxycodone every 4 hours as needed Muscle Spasm?tizanidine 4 mg nightly BPH?tamsulosin 0.4 mg daily Constipation, chronic?docusate as needed daily Continue home meds?aspirin Recommend he start at least 3 hours daily, at least 5 days/week, of physical andoccupational therapy, with additional therapy as needed to address functional impairment related to above documented medical conditions and facilitate community discharge home in a timely fashion. Patient has medical complexity that cannot be best managed at a lower level of care and requires at least 3 times weekly encounters with group supervisor yard for medical management and for plan of care review / changes. I spent 21 minutes for services, including [id number] encounter with the patient, discussion of the case, plan of care, and exam; and [id number] activities, such as reviewing pertinent technical sales consultant documentation, recent therapynotes, laboratory and radiology studies, and discussion of case with care team including physician, nursing, disability case manager, and therapists. More than 50 % of time was spent on patient/family counseling or coordination ofcare. <Statement entered by Jose Antonio Camara MD - 12/10/24 11:17> This documentation has been reviewed and approved. I reviewed the history and the relevant portions of the chart, including currentorders, allied health and technical sales consultant notes, labs/imaging and plan of care as above. Documented By: Gloria Arrington APRN 12/05/24 1 144 Signed By: <Electronically signed by KB Arrington> 12/05/24 1243 <Electronically signed by Jose Antonio Camara MD> 12/10/24 0136 [facility] Work Phone: 1(704) 932-929705-28-2025 Progress note Author Gloria Arrington [facility] Note Date/Time December 10, 2024 10:53 am [facility] [address] [place] [address] Physiatry(Rehab) Progress Note Signed Patient: Rehan Trejo MR#: [id number] : 1965 Acct:[id number] Age/Sex: 59 / M Adm Date: 5 Loc: Room: [address] [place] [address] Type: ADM IN Attending Dr: Paco Jimenez MD Copies to: ~ Date of Service: 12/08/2024 Subjective Subjective Narrative: Mr. Trejo is a 59 year old male with a past medical history of right hip AVN, hypertension, seizure disorder, BPH, loop recorder placed 08/2024, GERD, asthma overlap COPD and hypothyroidism who was admitted to the inpatient rehab unit sp posterior approach right total hip arthroplasty with preop course complicated by subcapital femoral neck fracture AVN. Rehan was examined this morning seated upright on side of bed with physical therapy session in progress. Mentions responsibilities at home caring for his , mother and [id number]-[id number]. Shares insight into mechanism of injury of the right quad tear 18 months ago with reinjury 2 to 3 weeks ago followed by fall in process of sit?stand from chair at home. Mentions near complete dependence on upper extremity for sit/stand. He is uncomfortable, moaning in pain and exhausted by simple posturing while seated upright bedside. Requests his inhaler. Reports no sleep overnight due topersistent high pain levels in both hips, R greater than L. Left hip pain and lower extremity weakness stable, chronic. Right hip pain new on chronic 8?9/10 and worse with minimal movement but is motivated and managing to work through the pain. Interval history: Patient examined in his room while sitting up in bed. He is alert, pleasant, oriented x 3. His pain is mild. Hip incision appears unremarkable. Minimal swelling in the operative extremity. GI symptoms resolved with addition of Protonix. Doing well in therapy. At this time he is ambulatory 200 feet x 2 with a walker and standby assistance. SBA with transfers and bed mobility. Review of Systems Review of Systems All other systems reviewed & are negative unless noted below or in HPI Exam Physical Exam Vital Signs: Temp Pulse Resp BP Pulse Ox O2 Del Method 98.2 F 83 18 152/93 H 99 Room Air 12/08/24 06:19 12/08/24 09:06 12/08/24 06:19 12/08/24 09:06 12/08/24 06:19 12/08/24 06:19 Narrative: General: Awake, alert, oriented x3 HENT: Normal to inspection, normocephalic, atraumatic Eyes: PERRL, normal conjunctiva and sclera Neck: Normal ROM, normal visual inspection. Trachea midline. Cardio: Regular heart rate and rhythm Respiratory: Clear to auscultation bilaterally. Normal respiratory effort. No respiratory distress. GI: Abdomen soft, nontender, nondistended, active bowel sounds x4 quadrants Neuro: CN II-XII intact. Strength 5/5, equal bilaterally Extremities: No edema, erythema, cyanosis. Surgical incision to the right hip, covered with Tegaderm, no drainage or surrounding erythema noted. Psych: Mood and affect appropriate. Normal speech. Objective Labs 12/04/24 03:41 12/04/24 03:41 Medications and Allergies Allergies and Active Meds: Allergies Penicillins Allergy (Severe, Verified 12/02/24 12:30) Swelling of Throat, Rash procaine (From Novocain) Allergy (Verified 12/02/24 12:30) Unknown Reaction strawberry Allergy (Verified 12/02/24 12:30) Unknown Reaction Active Medications Generic Name Dose Route Start Last Admin Trade Name Freq PRN Reason Stop Dose Admin Acetaminophen 1,000 mg 12/03/24 22:00 12/08/24 06:19 Acetaminophen 500 Mg Tablet PO 12/03/25 21:59 1,000 mg Q8H CHRISTOPHER Administration Al Hydrox/Mg Hydrox/Simethicone 30 ml 12/03/24 16:45 12/05/24 17:52 Mag Hydrox/Al Hydrox/Simeth 30 Ml Udc PO 12/03/25 16:44 30 ml Q4H PRN Administration Indigestion Ascorbic Acid 500 mg 12/04/24 08:00 12/08/24 09:05 Ascorbic Acid 500 Mg Tablet PO 12/04/25 07:59 500 mg BID.WITH.MEALS CHRISTOPHER Administration Aspirin 81 mg 12/03/24 21:00 12/08/24 09:03 Aspirin 81 Mg Tablet.Dr PO 12/03/25 20:59 81 mg BID CHRISTOPHER Administration Atorvastatin Calcium 10 mg 12/03/24 22:00 12/07/24 21:27 Atorvastatin 10 Mg Tablet PO 12/03/25 21:59 10 mg HS CHRISTOPHER Administration Bisacodyl 10 mg 12/03/24 16:45 Bisacodyl 10 Mg Supp.Rect MO 12/03/25 16:44 DAILY PRN Constipation Budesonide/Formoterol Fumarate 2 puff 12/04/24 21:00 12/08/24 06:11 Budesonide/Formoterol 160-4.5 Mcg 60 Puff/6 Gm Hfa.Aer.Ad INHALATION 12/04/25 20:59 2 puff BID CHRISTOPHER Administration Calcium Carbonate 1 tab 12/03/24 21:00 12/08/24 09:03 Calcium Carbonate/Vitamin D3 500 Mg/200 Unit Tablet PO 12/03/25 20:59 1 tab BID CHRISTOPHER Administration Diclofenac Sodium 75 mg 12/04/24 09:00 12/08/24 09:04 Diclofenac Sodium 75 Mg Tablet. PO 12/04/25 08:59 75 mg DAILY CHRISTOPHER Administration Diphenhydramine HCl 25 mg 12/03/24 22:00 12/07/24 21:26 Diphenhydramine 25 Mg Capsule PO 12/03/25 21:59 25 mg QHS CHRISTOPHER Administration Docusate Sodium 100 mg 12/03/24 16:45 12/03/24 18:13 Docusate 100 Mg Capsule PO 12/03/25 16:44 100 mg BID PRN Administration Constipation Docusate Sodium 283 mg 12/03/24 16:45 Docusate Enema 283 Mg/5 Ml Enema MO 12/03/25 16:44 DAILY PRN Constipation Doxycycline Hyclate 100 mg 12/03/24 21:00 12/08/24 09:03 Doxycycline Hyclate 100 Mg Tablet PO 12/10/24 20:59 100 mg BID CHRISTOPHER Administration Isosorbide Mononitrate 30 mg 12/04/24 09:00 12/08/24 09:05 Isosorbide Mononitrate 24hr Er 30 Mg Tab.Er.24h PO 12/04/25 08:59 30 mg QAM CHRISTOPHER Administration Lactulose 30 gm 12/03/24 16:45 Lactulose 20 Gm/30 Ml Udc PO 12/03/25 16:44 DAILY PRN Constipation Levothyroxine Sodium 250 mcg 12/04/24 06:30 12/08/24 06:19 Levothyroxine 125 Mcg Tablet PO 12/04/25 06:29 250 mcg DAILY.0630 CHRISTOPHER Administration Melatonin 10 mg 12/03/24 22:00 12/07/24 21:27 Melatonin 5 Mg Tablet PO 12/03/25 21:59 10 mg QHS CHRISTOPHER Administration Metoprolol Tartrate 50 mg 12/03/24 21:00 12/08/24 09:04 Metoprolol Tartrate 50 Mg Tablet PO 12/03/25 20:59 50 mg BID CHRISTOPHER Administration Oxycodone HCl 10 mg 12/03/24 17:53 12/07/24 21:27 Oxycodone Ir 5 Mg Tablet PO 10 mg Q4HR PRN Administration Pain Scale 6 - 10 Oxycodone HCl 5 mg 12/03/24 17:55 Oxycodone Ir 5 Mg Tablet PO Q4HR PRN Pain Pantoprazole Sodium 40 mg 12/05/24 09:35 12/08/24 09:04 Pantoprazole 40 Mg Tablet.Dr PO 12/05/25 09:34 40 mg DAILY CHRISTOPHER Administration Polyethylene Glycol 17 gm 12/04/24 09:00 12/08/24 09:05 Polyethylene Glycol 3350 17 Gm Powd.Pack PO 12/04/25 08:59 Not Given DAILY CHRISTOPHER Rivaroxaban 10 mg 12/04/24 09:00 12/08/24 09:04 Rivaroxaban 10 Mg Tablet PO 12/04/25 08:59 10 mg DAILY CHRISTOPHER Administration Senna/Docusate Sodium 2 tab 12/03/24 21:00 12/08/24 09:05 Sennosides/Docusate 8.6-50mg 1 Tab Tablet PO 12/03/25 20:59 Not Given BID CHRISTOPHER Sodium Chloride 0 ml 12/03/24 16:45 Sodium Chloride 0.9 % 10 Ml Syringe IV-PUSH 12/03/25 16:44 PRN PRN Flush Sodium Chloride 10 ml 12/04/24 09:00 12/08/24 09:05 Sodium Chloride 0.9 % 10 Ml Syringe IV-PUSH 12/04/25 08:59 10 ml BID CHRISTOPHER Administration Tamsulosin HCl 0.4 mg 12/04/24 09:00 12/08/24 09:04 Tamsulosin 0.4 Mg Cap.Er.24h PO 12/04/25 08:59 0.4 mg DAILY CHRISTOPHER Administration Tizanidine HCl 4 mg 12/03/24 22:00 12/07/24 21:26 Tizanidine 4 Mg Tablet PO 12/03/25 21:59 4 mg HS CHRISTOPHER Administration Topiramate 100 mg 12/04/24 09:00 12/08/24 09:04 Topiramate 100 Mg Tablet PO 12/04/25 08:59 100 mg QAM CHRISTOPHER Administration Topiramate 200 mg 12/03/24 22:00 12/07/24 21:27 Topiramate 100 Mg Tablet PO 12/03/25 21:59 200 mg HS CHRISTOPHER Administration Assessment/Plan Assessment/Plan (1) S/P total hip arthroplasty: (2) Seizure disorder: (3) Alcohol dependence: (4) Hypothyroidism: (5) BPH (benign prostatic hyperplasia): (6) HTN (hypertension): (7) Avascular necrosis: (8) Closed right hip fracture: (9) Impaired mobility and activities of daily living: Plan #Mr. Trejo is a 59 year old male with a past medical history of right hip AVN, hypertension, seizure disorder, BPH, loop recorder placed 08/2024, GERD, asthma overlap COPD and hypothyroidism who was admitted to the inpatient rehab unit sp posterior approach right total hip arthroplasty with preop course complicated by subcapital femoral neck fracture AVN. - No acute concerns or complaints. Clinically stable. -Progressing towards goals in therapy. Need to arrange FI with family this week. Seizure disorder?continue Topamax 100 g p.o. daily, 200 mg p.o. nightly Alcohol dependence?Reports no cravings. monitor vitals, symptoms daily. Asthma and COPD?albuterol as needed for shortness of breath, start symbicort maintenance inhaler Hypertension?metoprolol 50 mg twice daily Hyperthyroidism?250 mcg daily Postoperative Pain?tylenol, oxycodone every 4 hours as needed Muscle Spasm?tizanidine 4 mg nightly BPH?tamsulosin 0.4 mg daily Constipation, chronic?docusate as needed daily Continue home meds?aspirin Recommend he start at least 3 hours daily, at least 5 days/week, of physical andoccupational therapy, with additional therapy as needed to address functional impairment related to above documented medical conditions and facilitate community discharge home in a timely fashion. Patient has medical complexity that cannot be best managed at a lower level of care and requires at least 3 times weekly encounters with group supervisor yard for medical management and for plan of care review / changes. I spent 19 minutes for services, including [id number] encounter with the patient, discussion of the case, plan of care, and exam; and [id number] activities, such as reviewing pertinent technical sales consultant documentation, recent therapynotes, laboratory and radiology studies, and discussion of case with care team including physician, nursing, disability case manager, and therapists. More than 50 % of time was spent on patient/family counseling or coordination ofcare. <Statement entered by Jose Antonio Camara MD - 12/10/24 10:53> This documentation has been reviewed and approved. I reviewed the history and the relevant portions of the chart, including currentorders, allied health and technical sales consultant notes, labs/imaging and plan of care as above. Documented By: Gloria Arrington APRN 12/08/24 1 103 Signed By: <Electronically signed by KB Arrington> 12/08/24 1105 <Electronically signed by Jose Antonio Camara MD> 12/10/24 1053 [facility] Work Phone: [phone] 479-885705-28-2025 [place] [address] Physiatry(Rehab) Progress Note Signed Patient: Rehan Trejo MR#: [id number] : 1965 Acct:[id number] Age/Sex: 59 / M Adm Date: 5 Loc: Room: [address] [place] [address] Type: ADM IN Attending Dr: Paco Jimenez MD Copies to: ~ Date of Service: 12/05/2024 Subjective Subjective Narrative: Mr. Trejo is a 59 year old male with a past medical history of right hip AVN, hypertension, seizure disorder, BPH, loop recorder placed 08/2024, GERD, asthma overlap COPD and hypothyroidism who was admitted to the inpatient rehab unit sp posterior approach right total hip arthroplasty with preop course complicated by subcapital femoral neck fracture AVN. Rehan was examined this morning seatedupright on side of bed with physical therapy session in progress. Mentions responsibilities at homecaring for his , mother and [id number]. Shares insight into mechanism of injury of the rightquad tear 18 months ago with reinjury 2 to 3 weeks ago followed by fall in process of sit?stand from chair at home. Mentions near complete dependence on upper extremity for sit/stand. He is uncomfortable, moaning in pain and exhausted by simple posturing while seated upright bedside. Requests his inhaler. Reports no sleep overnight due topersistent high pain levels in both hips, Rgreater than L. Left hip pain and lower extremity weakness stable, chronic. Right hip pain new on chronic 8?9/10 and worse with minimal movement but is motivated and managing to work through the pain. Interval history: Patient was seen and evaluated in his room while resting in bed. He is alert, oriented x 3, pleasant. Reports that pain in the hip is fairly well-controlled. surgical site is covered with the postoperative dressing without signs of surrounding erythema or drainage. No lower extremity swelling noted. He admits to bothersome GERD symptoms, takes Prilosec at home but has been off of it here in the hospital. I will start him on Protonix PO. He is doing relatively well in therapy. Ambulatory 72 feet with a walker and standby assistance, SBA with transfers. Review of Systems Review of Systems All other systems reviewed & are negative unless noted below or in HPI Exam Physical Exam Vital Signs: Temp Pulse Resp BP Pulse Ox O2 Del Method 97.7 F 70 18 122/75 99 Room Air 12/05/24 06:02 12/05/24 06:02 12/05/24 06:02 12/05/24 06:02 12/05/24 06:02 12/05/24 09:14 Narrative: General: Awake, alert, oriented x3 HENT: Normal to inspection, normocephalic, atraumatic Eyes: PERRL, normal conjunctiva and sclera Neck: Normal ROM, normal visual inspection. Trachea midline. Cardio: Regular heart rate and rhythm Respiratory: Clear to auscultation bilaterally. Normal respiratory effort. No respiratory distress. GI: Abdomen soft, nontender, nondistended, active bowel sounds x4 quadrants Neuro: CN II-XII intact. Strength 5/5, equal bilaterally Extremities: No edema, erythema, cyanosis. Surgical incision to the right hip, covered with Tegaderm, no drainage or surrounding erythema noted. Psych: Mood and affect appropriate. Normal speech. Objective Labs 12/04/24 03:41 12/04/24 03:41 Additional Results Results Comments: I reviewed clinical lab tests, radiology reports and obtained and summated medical records and haveordered follow up lab tests and imaging studies as needed for rehabilitation care. Medications and Allergies Allergies and Active Meds: Allergies Penicillins Allergy (Severe, Verified 12/02/24 12:30) Swelling of Throat, Rash procaine (From Novocain) Allergy (Verified 12/02/24 12:30) Unknown Reaction strawberry Allergy (Verified 12/02/24 12:30) Unknown Reaction Active Medications Generic Name Dose Route Start Last Admin Trade Name Freq PRN Reason Stop Dose Admin Acetaminophen 1,000 mg 12/03/24 22:00 12/05/24 06:05 Acetaminophen 500 Mg Tablet PO 12/03/25 21:59 1,000 mg Q8H CHRISTOPHER Administration Al Hydrox/Mg Hydrox/Simethicone 30 ml 12/03/24 16:45 12/05/24 09:06 Mag Hydrox/Al Hydrox/Simeth 30 Ml Udc PO 12/03/25 16:44 30 ml Q4H PRN Administration Indigestion Ascorbic Acid 500 mg 12/04/24 08:00 12/05/24 08:33 Ascorbic Acid 500 Mg Tablet PO 12/04/25 07:59 500 mg BID.WITH.MEALS CHRISTOPHER Administration Aspirin 81 mg 12/03/24 21:00 12/05/24 08:33 Aspirin 81 Mg Tablet. PO 12/03/25 20:59 81 mg BID CHRISTOPHER Administration Atorvastatin Calcium 10 mg 12/03/24 22:00 12/04/24 21:26 Atorvastatin 10 Mg Tablet PO 12/03/25 21:59 10 mg HS CHRISTOPHER Administration Bisacodyl 10 mg 12/03/24 16:45 Bisacodyl 10 Mg Supp.Rect MO 12/03/25 16:44 DAILY PRN Constipation Budesonide/Formoterol Fumarate 2 puff 12/04/24 21:00 12/05/24 06:18 Budesonide/Formoterol 160-4.5 Mcg 60 Puff/6 Gm Hfa.Aer.Ad INHALATION 12/04/25 20:59 2 puff BID CHRISTOPHER Administration Calcium Carbonate 1 tab 12/03/24 21:00 12/05/24 08:33 Calcium Carbonate/Vitamin D3 500 Mg/200 Unit Tablet PO 12/03/25 20:59 1 tab BID CHRISTOPHER Administration Diclofenac Sodium 75 mg 12/04/24 09:00 12/05/24 08:33 Diclofenac Sodium 75 Mg Tablet.Dr PO 12/04/25 08:59 75 mg DAILY CHRISTOPHER Administration Diphenhydramine HCl 25 mg 12/03/24 22:00 12/04/24 21:28 Diphenhydramine 25 Mg Capsule PO 12/03/25 21:59 25 mg QHS CHRISTOPHER Administration Docusate Sodium 100 mg 12/03/24 16:45 12/03/24 18:13 Docusate 100 Mg Capsule PO 12/03/25 16:44 100 mg BID PRN Administration Constipation Docusate Sodium 283 mg 12/03/24 16:45 Docusate Enema 283 Mg/5 Ml Enema MO 12/03/25 16:44 DAILY PRN Constipation Doxycycline Hyclate 100 mg 12/03/24 21:00 12/05/24 08:33 Doxycycline Hyclate 100 Mg Tablet PO 12/10/24 20:59 100 mg BID CHRISTOPHER Administration Isosorbide Mononitrate 30 mg 12/04/24 09:00 12/05/24 08:33 Isosorbide Mononitrate 24hr Er 30 Mg Tab.Er.24h PO 12/04/25 08:59 30 mg QAM CHRISTOPHER Administration Lactulose 30 gm 12/03/24 16:45 Lactulose 20 Gm/30 Ml Udc PO 12/03/25 16:44 DAILY PRN Constipation Levothyroxine Sodium 250 mcg 12/04/24 06:30 12/05/24 06:05 Levothyroxine 125 Mcg Tablet PO 12/04/25 06:29 250 mcg DAILY.0630 CHRISTOPHER Administration Melatonin 10 mg 12/03/24 22:00 12/04/24 21:28 Melatonin 5 Mg Tablet PO 12/03/25 21:59 10 mg QHS CHRISTOPHER Administration Metoprolol Tartrate 50 mg 12/03/24 21:00 12/05/24 08:33 Metoprolol Tartrate 50 Mg Tablet PO 12/03/25 20:59 50 mg BID CHRISTOPHER Administration Oxycodone HCl 10 mg 12/03/24 17:53 12/05/24 06:05 Oxycodone Ir 5 Mg Tablet PO 10 mg Q4HR PRN Administration Pain Scale 6 - 10 Oxycodone HCl 5 mg 12/03/24 17:55 Oxycodone Ir 5 Mg Tablet PO Q4HR PRN Pain Pantoprazole Sodium 40 mg 12/05/24 09:35 12/05/24 10:36 Pantoprazole 40 Mg Tablet.Dr PO 12/05/25 09:34 40 mg DAILY CHRISTOPHER Administration Polyethylene Glycol 17 gm 12/04/24 09:00 12/05/24 08:33 Polyethylene Glycol 3350 17 Gm Powd.Pack PO 12/04/25 08:59 Not Given DAILY CHRISTOPHER Rivaroxaban 10 mg 12/04/24 09:00 12/05/24 08:33 Rivaroxaban 10 Mg Tablet PO 12/04/25 08:59 10 mg DAILY CHRISTOPHER Administration Senna/Docusate Sodium 2 tab 12/03/24 21:00 12/05/24 08:34 Sennosides/Docusate 8.6-50mg 1 Tab Tablet PO 12/03/25 20:59 Not Given BID CHRISTOPHER Sodium Chloride 0 ml 12/03/24 16:45 Sodium Chloride 0.9 % 10 Ml Syringe IV-PUSH 12/03/25 16:44 PRN PRN Flush Sodium Chloride 10 ml 12/04/24 09:00 12/05/24 09:06 Sodium Chloride 0.9 % 10 Ml Syringe IV-PUSH 12/04/25 08:59 10 ml BID CHRISTOPHER Administration Tamsulosin HCl 0.4 mg 12/04/24 09:00 12/05/24 08:33 Tamsulosin 0.4 Mg Cap.Er.24h PO 12/04/25 08:59 0.4 mg DAILY CHRISTOPHER Administration Tizanidine HCl 4 mg 12/03/24 22:00 12/04/24 21:28 Tizanidine 4 Mg Tablet PO 12/03/25 21:59 4 mg HS CHRISTOPHER Administration Topiramate 100 mg 12/04/24 09:00 12/05/24 08:33 Topiramate 100 Mg Tablet PO 12/04/25 08:59 100 mg QAM CHRISTOPHER Administration Topiramate 200 mg 12/03/24 22:00 12/04/24 21:27 Topiramate 100 Mg Tablet PO 12/03/25 21:59 200 mg HS CHRISTOPHER Administration Assessment/Plan Assessment/Plan (1) S/P total hip arthroplasty: (2) Seizure disorder: (3) Alcohol dependence: (4) Hypothyroidism: (5) BPH (benign prostatic hyperplasia): (6) HTN (hypertension): (7) Avascular necrosis: (8) Closed right hip fracture: (9) Impaired mobility and activities of daily living: Plan #Mr. Trejo is a 59 year old male with a past medical history of right hip AVN, hypertension, seizure disorder, BPH, loop recorder placed 08/2024, GERD, asthma overlap COPD and hypothyroidism who was admitted to the inpatient rehab unit sp posterior approach right total hip arthroplasty with preop course complicated by subcapital femoral neck fracture AVN. -Start Protonix 40 mg daily for GERD. -Continue current pain regimen. -Continue therapy as ordered. Seizure disorder?continue Topamax 100 g p.o. daily, 200 mg p.o. nightly Alcohol dependence?Reports no cravings. monitor vitals, symptoms daily. Asthma and COPD?albuterol as needed for shortness of breath, start symbicort maintenance inhaler Hypertension?metoprolol 50 mg twice daily Hyperthyroidism?250 mcg daily Postoperative Pain?tylenol, oxycodone every 4 hours as needed Muscle Spasm?tizanidine 4 mg nightly BPH?tamsulosin 0.4 mg daily Constipation, chronic?docusate as needed daily Continue home meds?aspirin Recommend he start at least 3 hours daily, at least 5 days/week, of physical andoccupational therapy, with additional therapy as needed to address functional impairment related to above documented medical conditions and facilitate community discharge home in a timely fashion. Patient has medical complexity that cannot be best managed at a lower level of care and requires at least 3 times weekly encounters with group supervisor yard for medical management and for plan of care review / changes. I spent 21 minutes for services, including [id number] encounter with the patient, discussion of the case, plan of care, and exam; and [id number] activities, such as reviewing pertinent technical sales consultant documentation, recent therapynotes, laboratory and radiology studies, and discussion of case with care team including physician, nursing, disability case manager, and therapists. More than 50 % of time was spent on patient/family counseling or coordination ofcare. This documentation has been reviewed and approved. I reviewed the history and the relevant portions of the chart, including currentorders, allied health and technical sales consultant notes, labs/imaging and plan of care as above. Documented By: Gloria Arrington APRN 12/05/24 1 144 Signed By: 12/05/24 1243 12/10/24 [facility]7 [facility]05-28-2025 [place] [address] Physiatry(Rehab) Progress Note Signed Patient: Rehan Trejo MR#: [id number] : 1965 Acct:[id number] Age/Sex: 59 / M Adm Date: 5 Loc: Room: [address] [place] [address] Type: ADM IN Attending Dr: Paco Jimenez MD Copies to: ~ Date of Service: 12/08/2024 Subjective Subjective Narrative: Mr. Trejo is a 59 year old male with a past medical history of right hip AVN, hypertension, seizure disorder, BPH, loop recorder placed 08/2024, GERD, asthma overlap COPD and hypothyroidism who was admitted to the inpatient rehab unit sp posterior approach right total hip arthroplasty with preop course complicated by subcapital femoral neck fracture AVN. Rehan was examined this morning seatedupright on side of bed with physical therapy session in progress. Mentions responsibilities at homecaring for his , mother and [id number]-ru-iho. Shares insight into mechanism of injury of the rightquad tear 18 months ago with reinjury 2 to 3 weeks ago followed by fall in process of sit?stand from chair at home. Mentions near complete dependence on upper extremity for sit/stand. He is uncomfortable, moaning in pain and exhausted by simple posturing while seated upright bedside. Requests his inhaler. Reports no sleep overnight due topersistent high pain levels in both hips, Rgreater than L. Left hip pain and lower extremity weakness stable, chronic. Right hip pain new on chronic 8?9/10 and worse with minimal movement but is motivated and managing to work through the pain. Interval history: Patient examined in his room while sitting up in bed. He is alert, pleasant, oriented x 3. His painis mild. Hip incision appears unremarkable. Minimal swelling in the operative extremity. GI symptoms resolved with addition of Protonix. Doing well in therapy. At this time he is ambulatory 200 feet x 2 with a walker and standby assistance. SBA with transfers and bed mobility. Review of Systems Review of Systems All other systems reviewed & are negative unless noted below or in HPI Exam Physical Exam Vital Signs: Temp Pulse Resp BP Pulse Ox O2 Del Method 98.2 F 83 18 152/93 H 99 Room Air 12/08/24 06:19 12/08/24 09:06 12/08/24 06:19 12/08/24 09:06 12/08/24 06:19 12/08/24 06:19 Narrative: General: Awake, alert, oriented x3 HENT: Normal to inspection, normocephalic, atraumatic Eyes: PERRL, normal conjunctiva and sclera Neck: Normal ROM, normal visual inspection. Trachea midline. Cardio: Regular heart rate and rhythm Respiratory: Clear to auscultation bilaterally. Normal respiratory effort. No respiratory distress. GI: Abdomen soft, nontender, nondistended, active bowel sounds x4 quadrants Neuro: CN II-XII intact. Strength 5/5, equal bilaterally Extremities: No edema, erythema, cyanosis. Surgical incision to the right hip, covered with Tegaderm, no drainage or surrounding erythema noted. Psych: Mood and affect appropriate. Normal speech. Objective Labs 12/04/24 03:41 12/04/24 03:41 Medications and Allergies Allergies and Active Meds: Allergies Penicillins Allergy (Severe, Verified 12/02/24 12:30) Swelling of Throat, Rash procaine (From Novocain) Allergy (Verified 12/02/24 12:30) Unknown Reaction strawberry Allergy (Verified 12/02/24 12:30) Unknown Reaction Active Medications Generic Name Dose Route Start Last Admin Trade Name Freq PRN Reason Stop Dose Admin Acetaminophen 1,000 mg 12/03/24 22:00 12/08/24 06:19 Acetaminophen 500 Mg Tablet PO 12/03/25 21:59 1,000 mg Q8H CHRISTOPHER Administration Al Hydrox/Mg Hydrox/Simethicone 30 ml 12/03/24 16:45 12/05/24 17:52 Mag Hydrox/Al Hydrox/Simeth 30 Ml Udc PO 12/03/25 16:44 30 ml Q4H PRN Administration Indigestion Ascorbic Acid 500 mg 12/04/24 08:00 12/08/24 09:05 Ascorbic Acid 500 Mg Tablet PO 12/04/25 07:59 500 mg BID.WITH.MEALS CHRISTOPHER Administration Aspirin 81 mg 12/03/24 21:00 12/08/24 09:03 Aspirin 81 Mg Tablet. PO 12/03/25 20:59 81 mg BID CHRISTOPHER Administration Atorvastatin Calcium 10 mg 12/03/24 22:00 12/07/24 21:27 Atorvastatin 10 Mg Tablet PO 12/03/25 21:59 10 mg HS CHRISTOPHER Administration Bisacodyl 10 mg 12/03/24 16:45 Bisacodyl 10 Mg Supp.Rect MO 12/03/25 16:44 DAILY PRN Constipation Budesonide/Formoterol Fumarate 2 puff 12/04/24 21:00 12/08/24 06:11 Budesonide/Formoterol 160-4.5 Mcg 60 Puff/6 Gm Hfa.Aer.Ad INHALATION 12/04/25 20:59 2 puff BID CHRISTOPHER Administration Calcium Carbonate 1 tab 12/03/24 21:00 12/08/24 09:03 Calcium Carbonate/Vitamin D3 500 Mg/200 Unit Tablet PO 12/03/25 20:59 1 tab BID CHRISTOPHER Administration Diclofenac Sodium 75 mg 12/04/24 09:00 12/08/24 09:04 Diclofenac Sodium 75 Mg Tablet. PO 12/04/25 08:59 75 mg DAILY CHRISTOPHER Administration Diphenhydramine HCl 25 mg 12/03/24 22:00 12/07/24 21:26 Diphenhydramine 25 Mg Capsule PO 12/03/25 21:59 25 mg QHS CHRISTOPHER Administration Docusate Sodium 100 mg 12/03/24 16:45 12/03/24 18:13 Docusate 100 Mg Capsule PO 12/03/25 16:44 100 mg BID PRN Administration Constipation Docusate Sodium 283 mg 12/03/24 16:45 Docusate Enema 283 Mg/5 Ml Enema MO 12/03/25 16:44 DAILY PRN Constipation Doxycycline Hyclate 100 mg 12/03/24 21:00 12/08/24 09:03 Doxycycline Hyclate 100 Mg Tablet PO 12/10/24 20:59 100 mg BID CHRISTOPHER Administration Isosorbide Mononitrate 30 mg 12/04/24 09:00 12/08/24 09:05 Isosorbide Mononitrate 24hr Er 30 Mg Tab.Er.24h PO 12/04/25 08:59 30 mg QAM CHRISTOPHER Administration Lactulose 30 gm 12/03/24 16:45 Lactulose 20 Gm/30 Ml Udc PO 12/03/25 16:44 DAILY PRN Constipation Levothyroxine Sodium 250 mcg 12/04/24 06:30 12/08/24 06:19 Levothyroxine 125 Mcg Tablet PO 12/04/25 06:29 250 mcg DAILY.0630 CHRISTOPHER Administration Melatonin 10 mg 12/03/24 22:00 12/07/24 21:27 Melatonin 5 Mg Tablet PO 12/03/25 21:59 10 mg QHS CHRISTOPHER Administration Metoprolol Tartrate 50 mg 12/03/24 21:00 12/08/24 09:04 Metoprolol Tartrate 50 Mg Tablet PO 12/03/25 20:59 50 mg BID CHRISTOPHER Administration Oxycodone HCl 10 mg 12/03/24 17:53 12/07/24 21:27 Oxycodone Ir 5 Mg Tablet PO 10 mg Q4HR PRN Administration Pain Scale 6 - 10 Oxycodone HCl 5 mg 12/03/24 17:55 Oxycodone Ir 5 Mg Tablet PO Q4HR PRN Pain Pantoprazole Sodium 40 mg 12/05/24 09:35 12/08/24 09:04 Pantoprazole 40 Mg Tablet.Dr PO 12/05/25 09:34 40 mg DAILY CHRISTOPHER Administration Polyethylene Glycol 17 gm 12/04/24 09:00 12/08/24 09:05 Polyethylene Glycol 3350 17 Gm Powd.Pack PO 12/04/25 08:59 Not Given DAILY CHRISTOPHER Rivaroxaban 10 mg 12/04/24 09:00 12/08/24 09:04 Rivaroxaban 10 Mg Tablet PO 12/04/25 08:59 10 mg DAILY CHRISTOPHER Administration Senna/Docusate Sodium 2 tab 12/03/24 21:00 12/08/24 09:05 Sennosides/Docusate 8.6-50mg 1 Tab Tablet PO 12/03/25 20:59 Not Given BID CHRISTOPHER Sodium Chloride 0 ml 12/03/24 16:45 Sodium Chloride 0.9 % 10 Ml Syringe IV-PUSH 12/03/25 16:44 PRN PRN Flush Sodium Chloride 10 ml 12/04/24 09:00 12/08/24 09:05 Sodium Chloride 0.9 % 10 Ml Syringe IV-PUSH 12/04/25 08:59 10 ml BID CHRISTOPHER Administration Tamsulosin HCl 0.4 mg 12/04/24 09:00 12/08/24 09:04 Tamsulosin 0.4 Mg Cap.Er.24h PO 12/04/25 08:59 0.4 mg DAILY CHRISTOPHER Administration Tizanidine HCl 4 mg 12/03/24 22:00 12/07/24 21:26 Tizanidine 4 Mg Tablet PO 12/03/25 21:59 4 mg HS CHRISTOPHER Administration Topiramate 100 mg 12/04/24 09:00 12/08/24 09:04 Topiramate 100 Mg Tablet PO 12/04/25 08:59 100 mg QAM CHRISTOPHER Administration Topiramate 200 mg 12/03/24 22:00 12/07/24 21:27 Topiramate 100 Mg Tablet PO 12/03/25 21:59 200 mg HS CHRISTOPHER Administration Assessment/Plan Assessment/Plan (1) S/P total hip arthroplasty: (2) Seizure disorder: (3) Alcohol dependence: (4) Hypothyroidism: (5) BPH (benign prostatic hyperplasia): (6) HTN (hypertension): (7) Avascular necrosis: (8) Closed right hip fracture: (9) Impaired mobility and activities of daily living: Plan #Mr. Trejo is a 59 year old male with a past medical history of right hip AVN, hypertension, seizure disorder, BPH, loop recorder placed 08/2024, GERD, asthma overlap COPD and hypothyroidism who was admitted to the inpatient rehab unit sp posterior approach right total hip arthroplasty with preop course complicated by subcapital femoral neck fracture AVN. - No acute concerns or complaints. Clinically stable. -Progressing towards goals in therapy. Need to arrange FI with family this week. Seizure disorder?continue Topamax 100 g p.o. daily, 200 mg p.o. nightly Alcohol dependence?Reports no cravings. monitor vitals, symptoms daily. Asthma and COPD?albuterol as needed for shortness of breath, start symbicort maintenance inhaler Hypertension?metoprolol 50 mg twice daily Hyperthyroidism?250 mcg daily Postoperative Pain?tylenol, oxycodone every 4 hours as needed Muscle Spasm?tizanidine 4 mg nightly BPH?tamsulosin 0.4 mg daily Constipation, chronic?docusate as needed daily Continue home meds?aspirin Recommend he start at least 3 hours daily, at least 5 days/week, of physical andoccupational therapy, with additional therapy as needed to address functional impairment related to above documented medical conditions and facilitate community discharge home in a timely fashion. Patient has medical complexity that cannot be best managed at a lower level of care and requires at least 3 times weekly encounters with group supervisor yard for medical management and for plan of care review / changes. I spent 19 minutes for services, including [id number] encounter with the patient, discussion of the case, plan of care, and exam; and [id number] activities, such as reviewing pertinent technical sales consultant documentation, recent therapynotes, laboratory and radiology studies, and discussion of case with care team including physician, nursing, disability case manager, and therapists. More than 50 % of time was spent on patient/family counseling or coordination ofcare. This documentation has been reviewed and approved. I reviewed the history and the relevant portions of the chart, including currentorders, allied health and technical sales consultant notes, labs/imaging and plan of care as above. Documented By: Gloria Arrington APRN 12/08/24 1 103 Signed By: 12/08/24 1105 12/10/24 1053 [facility]05-27-2025 Progress note Author Paco Jimenez [facility] Note Date/Time December 09, 2024 12:46 pm [facility] [address] [place] [address] Physiatry(Rehab) Progress Note Signed Patient: Rehan Trejo MR#: [id number] : 1965 Acct:[id number] Age/Sex: 59 / M Adm Date: 5 Loc: Room: 7G4915-5 Type: ADM IN Attending Dr: Paco Jimenez MD Copies to: ~ Date of Service: 12/09/2024 Subjective Subjective Narrative: Mr. Trejo is a 59 year old male with a past medical history of right hip AVN, hypertension, seizure disorder, BPH, loop recorder placed 08/2024, GERD, asthma overlap COPD and hypothyroidism who was admitted to the inpatient rehab unit sp posterior approach right total hip arthroplasty with preop course complicated by subcapital femoral neck fracture AVN. Rehan was examined this morning seated upright on side of bed with physical therapy session in progress. Mentions responsibilities at home caring for his , mother and atvugt-[id number]. Shares insight into mechanism of injury of the right quad tear 18 months ago with reinjury 2 to 3 weeks ago followed by fall in process of sit?stand from chair at home. Mentions near complete dependence on upper extremity for sit/stand. He is uncomfortable, moaning in pain and exhausted by simple posturing while seated upright bedside. Requests his inhaler. Reports no sleep overnight due topersistent high pain levels in both hips, R greater than L. Left hip pain and lower extremity weakness stable, chronic. Right hip pain new on chronic 8?9/10 and worse with minimal movement but is motivated and managing to work through the pain. Interval history: Patient examined in his room while sitting up in bed. In no distress. Denies major concerns today, slight hip pain. Tolerating therapy well. Review of Systems Review of Systems All other systems reviewed & are negative unless noted below or in HPI Exam Physical Exam Vital Signs: Temp Pulse Resp BP Pulse Ox O2 Del Method 98.4 F 76 20 154/90 H 96 Room Air 12/09/24 06:00 12/09/24 06:00 12/09/24 06:00 12/09/24 06:00 12/09/24 06:00 12/09/24 06:00 Narrative: NAD Extremities well perfused No respiratory distress Abdomen soft non distended TRU Slight edema RLE Mood is normal Speech is normal Objective Labs 12/04/24 03:41 12/04/24 03:41 Medications and Allergies Allergies and Active Meds: Allergies Penicillins Allergy (Severe, Verified 12/02/24 12:30) Swelling of Throat, Rash procaine (From Novocain) Allergy (Verified 12/02/24 12:30) Unknown Reaction strawberry Allergy (Verified 12/02/24 12:30) Unknown Reaction Active Medications Generic Name Dose Route Start Last Admin Trade Name Freq PRN Reason Stop Dose Admin Acetaminophen 1,000 mg 12/03/24 22:00 12/09/24 06:08 Acetaminophen 500 Mg Tablet PO 12/03/25 21:59 1,000 mg Q8H CHRISTOPHER Administration Al Hydrox/Mg Hydrox/Simethicone 30 ml 12/03/24 16:45 12/05/24 17:52 Mag Hydrox/Al Hydrox/Simeth 30 Ml Udc PO 12/03/25 16:44 30 ml Q4H PRN Administration Indigestion Ascorbic Acid 500 mg 12/04/24 08:00 12/09/24 09:30 Ascorbic Acid 500 Mg Tablet PO 12/04/25 07:59 500 mg BID.WITH.MEALS CHRISTOPHER Administration Aspirin 81 mg 12/03/24 21:00 12/09/24 09:31 Aspirin 81 Mg Tablet. PO 12/03/25 20:59 81 mg BID CHRISTOPHER Administration Atorvastatin Calcium 10 mg 12/03/24 22:00 12/08/24 21:21 Atorvastatin 10 Mg Tablet PO 12/03/25 21:59 10 mg HS CHRISTOPHER Administration Bisacodyl 10 mg 12/03/24 16:45 Bisacodyl 10 Mg Supp.Rect MO 12/03/25 16:44 DAILY PRN Constipation Budesonide/Formoterol Fumarate 2 puff 12/04/24 21:00 12/09/24 06:34 Budesonide/Formoterol 160-4.5 Mcg 60 Puff/6 Gm Hfa.Aer.Ad INHALATION 12/04/25 20:59 2 puff BID CHRISTOPHER Administration Calcium Carbonate 1 tab 12/03/24 21:00 12/09/24 09:31 Calcium Carbonate/Vitamin D3 500 Mg/200 Unit Tablet PO 12/03/25 20:59 1 tab BID CHRISTOPHER Administration Diclofenac Sodium 75 mg 12/04/24 09:00 12/09/24 09:31 Diclofenac Sodium 75 Mg Tablet. PO 12/04/25 08:59 75 mg DAILY CHRISTOPHER Administration Diphenhydramine HCl 25 mg 12/03/24 22:00 12/08/24 21:21 Diphenhydramine 25 Mg Capsule PO 12/03/25 21:59 25 mg QHS CHRISTOPHER Administration Docusate Sodium 100 mg 12/03/24 16:45 12/03/24 18:13 Docusate 100 Mg Capsule PO 12/03/25 16:44 100 mg BID PRN Administration Constipation Docusate Sodium 283 mg 12/03/24 16:45 Docusate Enema 283 Mg/5 Ml Enema MO 12/03/25 16:44 DAILY PRN Constipation Doxycycline Hyclate 100 mg 12/03/24 21:00 12/09/24 09:31 Doxycycline Hyclate 100 Mg Tablet PO 12/10/24 20:59 100 mg BID CHRISTOPHER Administration Isosorbide Mononitrate 30 mg 12/04/24 09:00 12/09/24 09:31 Isosorbide Mononitrate 24hr Er 30 Mg Tab.Er.24h PO 12/04/25 08:59 30 mg QAM CHRISTOPHER Administration Lactulose 30 gm 12/03/24 16:45 Lactulose 20 Gm/30 Ml Udc PO 12/03/25 16:44 DAILY PRN Constipation Levothyroxine Sodium 250 mcg 12/04/24 06:30 12/09/24 06:08 Levothyroxine 125 Mcg Tablet PO 12/04/25 06:29 250 mcg DAILY.0630 CHRISTOPHER Administration Melatonin 10 mg 12/03/24 22:00 12/08/24 21:23 Melatonin 5 Mg Tablet PO 12/03/25 21:59 10 mg QHS CHRISTOPHER Administration Metoprolol Tartrate 50 mg 12/03/24 21:00 12/09/24 09:30 Metoprolol Tartrate 50 Mg Tablet PO 12/03/25 20:59 50 mg BID CHRISTOPHER Administration Oxycodone HCl 10 mg 12/03/24 17:53 12/09/24 09:31 Oxycodone Ir 5 Mg Tablet PO 10 mg Q4HR PRN Administration Pain Scale 6 - 10 Oxycodone HCl 5 mg 12/03/24 17:55 Oxycodone Ir 5 Mg Tablet PO Q4HR PRN Pain Pantoprazole Sodium 40 mg 12/05/24 09:35 12/09/24 09:30 Pantoprazole 40 Mg Tablet.Dr PO 12/05/25 09:34 40 mg DAILY CHRISTOPHER Administration Polyethylene Glycol 17 gm 12/04/24 09:00 12/09/24 09:31 Polyethylene Glycol 3350 17 Gm Powd.Pack PO 12/04/25 08:59 Not Given DAILY CHRISTOPHER Rivaroxaban 10 mg 12/04/24 09:00 12/09/24 09:30 Rivaroxaban 10 Mg Tablet PO 12/04/25 08:59 10 mg DAILY CHRISTOPHER Administration Senna/Docusate Sodium 2 tab 12/03/24 21:00 12/09/24 09:31 Sennosides/Docusate 8.6-50mg 1 Tab Tablet PO 12/03/25 20:59 Not Given BID CHRISTOPHER Sodium Chloride 0 ml 12/03/24 16:45 Sodium Chloride 0.9 % 10 Ml Syringe IV-PUSH 12/03/25 16:44 PRN PRN Flush Tamsulosin HCl 0.4 mg 12/04/24 09:00 12/09/24 09:31 Tamsulosin 0.4 Mg Cap.Er.24h PO 12/04/25 08:59 0.4 mg DAILY CHRISTOPHER Administration Tizanidine HCl 4 mg 12/03/24 22:00 12/08/24 21:22 Tizanidine 4 Mg Tablet PO 12/03/25 21:59 4 mg HS CHRISTOPHER Administration Topiramate 100 mg 12/04/24 09:00 12/09/24 09:30 Topiramate 100 Mg Tablet PO 12/04/25 08:59 100 mg QAM CHRISTOPHER Administration Topiramate 200 mg 12/03/24 22:00 12/08/24 21:21 Topiramate 100 Mg Tablet PO 12/03/25 21:59 200 mg HS CHRISTOPHER Administration Assessment/Plan Assessment/Plan (1) S/P total hip arthroplasty: (2) Seizure disorder: (3) Alcohol dependence: (4) Hypothyroidism: (5) BPH (benign prostatic hyperplasia): (6) HTN (hypertension): (7) Avascular necrosis: (8) Closed right hip fracture: (9) Impaired mobility and activities of daily living: Plan #Mr. Trejo is a 59 year old male with a past medical history of right hip AVN, hypertension, seizure disorder, BPH, loop recorder placed 08/2024, GERD, asthma overlap COPD and hypothyroidism who was admitted to the inpatient rehab unit sp posterior approach right total hip arthroplasty with preop course complicated by subcapital femoral neck fracture AVN. - No acute concerns or complaints. Clinically stable. -Progressing towards goals in therapy. Need to arrange FI with family this week. Plan for DC home this weekend Seizure disorder?continue Topamax 100 g p.o. daily, 200 mg p.o. nightly Alcohol dependence?Reports no cravings. monitor vitals, symptoms daily. Asthma and COPD?albuterol as needed for shortness of breath, start symbicort maintenance inhaler Hypertension?metoprolol 50 mg twice daily Hyperthyroidism?250 mcg daily Postoperative Pain?tylenol, oxycodone every 4 hours as needed Muscle Spasm?tizanidine 4 mg nightly BPH?tamsulosin 0.4 mg daily Constipation, chronic?docusate as needed daily Continue home meds?aspirin Recommend he start at least 3 hours daily, at least 5 days/week, of physical andoccupational therapy, with additional therapy as needed to address functional impairment related to above documented medical conditions and facilitate community discharge home in a timely fashion. Patient has medical complexity that cannot be best managed at a lower level of care and requires at least 3 times weekly encounters with group supervisor yard for medical management and for plan of care review / changes. I spent 25 minutes for services, including [id number] encounter with the patient, discussion of the case, plan of care, and exam; and frfiuse-ep-cair activities, such as reviewing pertinent technical sales consultant documentation, recent therapynotes, laboratory and radiology studies, and discussion of case with care team including physician, nursing, disability case manager, and therapists. More than 50 % of time was spent on patient/family counseling or coordination ofcare. Documented By: Paco Jimenez MD [id number] Signed By: <Electronically signed by Paco Jimenez MD> 12/09/24 1246 [facility] Work Phone: [phone] [place] [address] Physiatry(Rehab) Progress Note Signed Patient: Rehan Trejo MR#: [id number] : 1965 Acct:[id number] Age/Sex: 59 / M Adm Date: 5 Loc: Room: [address] [place] [address] Type: ADM IN Attending Dr: Paco Jimenez MD Copies to: ~ Date of Service: 12/09/2024 Subjective Subjective Narrative: Mr. Trejo is a 59 year old male with a past medical history of right hip AVN, hypertension, seizure disorder, BPH, loop recorder placed 08/2024, GERD, asthma overlap COPD and hypothyroidism who was admitted to the inpatient rehab unit sp posterior approach right total hip arthroplasty with preop course complicated by subcapital femoral neck fracture AVN. Rehan was examined this morning seatedupright on side of bed with physical therapy session in progress. Mentions responsibilities at homecaring for his , mother and [id number]. Shares insight into mechanism of injury of the rightquad tear 18 months ago with reinjury 2 to 3 weeks ago followed by fall in process of sit?stand from chair at home. Mentions near complete dependence on upper extremity for sit/stand. He is uncomfortable, moaning in pain and exhausted by simple posturing while seated upright bedside. Requests his inhaler. Reports no sleep overnight due topersistent high pain levels in both hips, Rgreater than L. Left hip pain and lower extremity weakness stable, chronic. Right hip pain new on chronic 8?9/10 and worse with minimal movement but is motivated and managing to work through the pain. Interval history: Patient examined in his room while sitting up in bed. In no distress. Denies major concerns today, slight hip pain. Tolerating therapy well. Review of Systems Review of Systems All other systems reviewed & are negative unless noted below or in HPI Exam Physical Exam Vital Signs: Temp Pulse Resp BP Pulse Ox O2 Del Method 98.4 F 76 20 154/90 H 96 Room Air 12/09/24 06:00 12/09/24 06:00 12/09/24 06:00 12/09/24 06:00 12/09/24 06:00 12/09/24 06:00 Narrative: NAD Extremities well perfused No respiratory distress Abdomen soft non distended TRU Slight edema RLE Mood is normal Speech is normal Objective Labs 12/04/24 03:41 12/04/24 03:41 Medications and Allergies Allergies and Active Meds: Allergies Penicillins Allergy (Severe, Verified 12/02/24 12:30) Swelling of Throat, Rash procaine (From Novocain) Allergy (Verified 12/02/24 12:30) Unknown Reaction strawberry Allergy (Verified 12/02/24 12:30) Unknown Reaction Active Medications Generic Name Dose Route Start Last Admin Trade Name Freq PRN Reason Stop Dose Admin Acetaminophen 1,000 mg 12/03/24 22:00 12/09/24 06:08 Acetaminophen 500 Mg Tablet PO 12/03/25 21:59 1,000 mg Q8H CHRISTOPHER Administration Al Hydrox/Mg Hydrox/Simethicone 30 ml 12/03/24 16:45 12/05/24 17:52 Mag Hydrox/Al Hydrox/Simeth 30 Ml Udc PO 12/03/25 16:44 30 ml Q4H PRN Administration Indigestion Ascorbic Acid 500 mg 12/04/24 08:00 12/09/24 09:30 Ascorbic Acid 500 Mg Tablet PO 12/04/25 07:59 500 mg BID.WITH.MEALS CHRISTOPHER Administration Aspirin 81 mg 12/03/24 21:00 12/09/24 09:31 Aspirin 81 Mg Tablet. PO 12/03/25 20:59 81 mg BID CHRISTOPHER Administration Atorvastatin Calcium 10 mg 12/03/24 22:00 12/08/24 21:21 Atorvastatin 10 Mg Tablet PO 12/03/25 21:59 10 mg HS CHRISTOPHER Administration Bisacodyl 10 mg 12/03/24 16:45 Bisacodyl 10 Mg Supp.Rect MO 12/03/25 16:44 DAILY PRN Constipation Budesonide/Formoterol Fumarate 2 puff 12/04/24 21:00 12/09/24 06:34 Budesonide/Formoterol 160-4.5 Mcg 60 Puff/6 Gm Hfa.Aer.Ad INHALATION 12/04/25 20:59 2 puff BID CHRISTOPHER Administration Calcium Carbonate 1 tab 12/03/24 21:00 12/09/24 09:31 Calcium Carbonate/Vitamin D3 500 Mg/200 Unit Tablet PO 12/03/25 20:59 1 tab BID CHRISTOPHER Administration Diclofenac Sodium 75 mg 12/04/24 09:00 12/09/24 09:31 Diclofenac Sodium 75 Mg Tablet. PO 12/04/25 08:59 75 mg DAILY CHRISTOPHER Administration Diphenhydramine HCl 25 mg 12/03/24 22:00 12/08/24 21:21 Diphenhydramine 25 Mg Capsule PO 12/03/25 21:59 25 mg QHS CHRISTOPHER Administration Docusate Sodium 100 mg 12/03/24 16:45 12/03/24 18:13 Docusate 100 Mg Capsule PO 12/03/25 16:44 100 mg BID PRN Administration Constipation Docusate Sodium 283 mg 12/03/24 16:45 Docusate Enema 283 Mg/5 Ml Enema MO 12/03/25 16:44 DAILY PRN Constipation Doxycycline Hyclate 100 mg 12/03/24 21:00 12/09/24 09:31 Doxycycline Hyclate 100 Mg Tablet PO 12/10/24 20:59 100 mg BID CHRISTOPHER Administration Isosorbide Mononitrate 30 mg 12/04/24 09:00 12/09/24 09:31 Isosorbide Mononitrate 24hr Er 30 Mg Tab.Er.24h PO 12/04/25 08:59 30 mg QAM CHRISTOPHER Administration Lactulose 30 gm 12/03/24 16:45 Lactulose 20 Gm/30 Ml Udc PO 12/03/25 16:44 DAILY PRN Constipation Levothyroxine Sodium 250 mcg 12/04/24 06:30 12/09/24 06:08 Levothyroxine 125 Mcg Tablet PO 12/04/25 06:29 250 mcg DAILY.0630 CHRISTOPHER Administration Melatonin 10 mg 12/03/24 22:00 12/08/24 21:23 Melatonin 5 Mg Tablet PO 12/03/25 21:59 10 mg QHS CHRISTOPHER Administration Metoprolol Tartrate 50 mg 12/03/24 21:00 12/09/24 09:30 Metoprolol Tartrate 50 Mg Tablet PO 12/03/25 20:59 50 mg BID CHRISTOPHER Administration Oxycodone HCl 10 mg 12/03/24 17:53 12/09/24 09:31 Oxycodone Ir 5 Mg Tablet PO 10 mg Q4HR PRN Administration Pain Scale 6 - 10 Oxycodone HCl 5 mg 12/03/24 17:55 Oxycodone Ir 5 Mg Tablet PO Q4HR PRN Pain Pantoprazole Sodium 40 mg 12/05/24 09:35 12/09/24 09:30 Pantoprazole 40 Mg Tablet.Dr PO 12/05/25 09:34 40 mg DAILY CHRISTOPHER Administration Polyethylene Glycol 17 gm 12/04/24 09:00 12/09/24 09:31 Polyethylene Glycol 3350 17 Gm Powd.Pack PO 12/04/25 08:59 Not Given DAILY CHRISTOPHER Rivaroxaban 10 mg 12/04/24 09:00 12/09/24 09:30 Rivaroxaban 10 Mg Tablet PO 12/04/25 08:59 10 mg DAILY CHRISTOPHER Administration Senna/Docusate Sodium 2 tab 12/03/24 21:00 12/09/24 09:31 Sennosides/Docusate 8.6-50mg 1 Tab Tablet PO 12/03/25 20:59 Not Given BID CHRISTOPHER Sodium Chloride 0 ml 12/03/24 16:45 Sodium Chloride 0.9 % 10 Ml Syringe IV-PUSH 12/03/25 16:44 PRN PRN Flush Tamsulosin HCl 0.4 mg 12/04/24 09:00 12/09/24 09:31 Tamsulosin 0.4 Mg Cap.Er.24h PO 12/04/25 08:59 0.4 mg DAILY CHRISTOPHER Administration Tizanidine HCl 4 mg 12/03/24 22:00 12/08/24 21:22 Tizanidine 4 Mg Tablet PO 12/03/25 21:59 4 mg HS CHRISTOPHER Administration Topiramate 100 mg 12/04/24 09:00 12/09/24 09:30 Topiramate 100 Mg Tablet PO 12/04/25 08:59 100 mg QAM CHRISTOPHER Administration Topiramate 200 mg 12/03/24 22:00 12/08/24 21:21 Topiramate 100 Mg Tablet PO 12/03/25 21:59 200 mg HS CHRISTOPHER Administration Assessment/Plan Assessment/Plan (1) S/P total hip arthroplasty: (2) Seizure disorder: (3) Alcohol dependence: (4) Hypothyroidism: (5) BPH (benign prostatic hyperplasia): (6) HTN (hypertension): (7) Avascular necrosis: (8) Closed right hip fracture: (9) Impaired mobility and activities of daily living: Plan #Mr. Trejo is a 59 year old male with a past medical history of right hip AVN, hypertension, seizure disorder, BPH, loop recorder placed 08/2024, GERD, asthma overlap COPD and hypothyroidism who was admitted to the inpatient rehab unit sp posterior approach right total hip arthroplasty with preop course complicated by subcapital femoral neck fracture AVN. - No acute concerns or complaints. Clinically stable. -Progressing towards goals in therapy. Need to arrange FI with family this week. Plan for DC home this weekend Seizure disorder?continue Topamax 100 g p.o. daily, 200 mg p.o. nightly Alcohol dependence?Reports no cravings. monitor vitals, symptoms daily. Asthma and COPD?albuterol as needed for shortness of breath, start symbicort maintenance inhaler Hypertension?metoprolol 50 mg twice daily Hyperthyroidism?250 mcg daily Postoperative Pain?tylenol, oxycodone every 4 hours as needed Muscle Spasm?tizanidine 4 mg nightly BPH?tamsulosin 0.4 mg daily Constipation, chronic?docusate as needed daily Continue home meds?aspirin Recommend he start at least 3 hours daily, at least 5 days/week, of physical andoccupational therapy, with additional therapy as needed to address functional impairment related to above documented medical conditions and facilitate community discharge home in a timely fashion. Patient has medical complexity that cannot be best managed at a lower level of care and requires at least 3 times weekly encounters with group supervisor yard for medical management and for plan of care review / changes. I spent 25 minutes for services, including zzmo-cy-nbyg encounter with the patient, discussion of the case, plan of care, and exam; and phajvsc-wu-wkdg activities, such as reviewing pertinent technical sales consultant documentation, recent therapynotes, laboratory and radiology studies, and discussion of case with care team including physician, nursing, disability case manager, and therapists. More than 50 % of time was spent on patient/family counseling or coordination ofcare. Documented By: Paco Jimenez MD [id number] Signed By: 12/09/24 1246 [facility]05-23-2025 Consult note Author Danyell Daniels [facility] Note Date/Time December 05, 2024 10:12 am [facility] [address] [place] [address] Hospitalist Consult Note Signed Patient: Rehan Trejo MR#: [id number] : 1965 Acct:[id number] Age/Sex: 59 / M Adm Date: 5 Loc: Room: 0C6843-8 Type: ADM IN Attending Dr: Paco Jimenez MD Copies to: MD Pee Silva MD Lynn A Stackhouse-Roby, APRN Rafik Massouh, MD~ HPI DATE OF CONSULTATION: 12/04/24 REQUESTING PROVIDER: Paco Jimenez Consult Narrative Reason for Consult: Hypertension HPI: 59-year-old male past medical history significant for seizures, COPD/asthma, hypothyroid, hypertension, BPH. He initially presented to external emergency department December 01 with complaints of pain in the right hip and groin with inability to ambulate, prior injury about 2 weeks prior. Imaging demonstrated right femoral head fracture with suggestion of underlying avascular necrosis. [facility]. Seen by orthopedic surgery on consult and underwent right total hip arthroplasty December 02. Seen by therapy services with recommendations for ongoing rehab and subsequently discharged to the rehab unit December 03. Hospitalist team now consulted for ongoing management of hypertension. Patient seen and examined. Endorses postoperative pain as anticipated. Denies chest pain or palpitations. No cough, dyspnea, or pain with inspiration. No abdominal pain or indigestion, constipation or diarrhea, nausea or vomiting. Nodysuria or retention. No headache or dizziness. No fevers or chills. Review of Systems Review of Systems All other systems reviewed & are negative unless noted below or in HPI [facility] Medical History (Updated 12/04/24 @ 17:48 by Danyell Daniels APRN) CAD (coronary artery disease) Hyperlipidemia COPD (chronic obstructive pulmonary disease) Asthma Seizure disorder Hypothyroidism Implantable loop recorder present Placed 08/2024 HTN (hypertension) BPH (benign prostatic hyperplasia) Surgical History H/O hand surgery History of back surgery H/O foot surgery Family History Father Diabetes Mother Cancer breast Social History Smoking Status: Former smoker Tobacco Type: cigarettes Substance Use Type: Alcohol Meds Medications and Allergies Allergies Penicillins Allergy (Severe, Verified 12/02/24 12:30) Swelling of Throat, Rash procaine (From Novocain) Allergy (Verified 12/02/24 12:30) Unknown Reaction strawberry Allergy (Verified 12/02/24 12:30) Unknown Reaction Home Medications aspirin 81 mg tablet 81 mg PO BID 12/01/24 [History Confirmed 12/03/24] atorvastatin 10 mg tablet 10 mg PO HS 12/01/24 [History Confirmed 12/03/24] diphenhydramine HCl 25 mg capsule (Allergy (diphenhydramine)) 25 mg PO QHS 12/01/24 [History Confirmed 12/03/24] isosorbide mononitrate 30 mg tablet,extended release 24 hr 30 mg PO .am 12/01/24[History Confirmed 12/03/24] levothyroxine 125 mcg tablet 250 mcg PO .am 12/01/24 [History Confirmed 12/03/24] melatonin 12 mg tablet 12 mg PO QHS 12/01/24 [History Confirmed 12/03/24] metoprolol tartrate 50 mg tablet 50 mg PO BID 12/01/24 [History Confirmed 12/03/24] tamsulosin 0.4 mg capsule 0.4 mg PO DAILY 12/01/24 [History Confirmed 12/03/24] tizanidine 4 mg tablet 4 mg PO HS 12/01/24 [History Confirmed 12/03/24] topiramate 100 mg tablet 200 mg PO HS 12/01/24 [History Confirmed 12/03/24] topiramate 100 mg tablet (Topamax) 100 mg PO .am 12/01/24 [History Confirmed 12/03/24] acetaminophen 500 mg tablet 1,000 mg (2 x 500 mg) PO Q8H 7 days #0 tabs 12/03/24[Rx Confirmed 12/03/24] ascorbic acid (vitamin C) 500 mg tablet (Vitamin C) 500 mg PO BID.WITH.MEALS 7 days #14 tabs 12/03/24 [Rx Confirmed 12/03/24] calcium 600 mg (as carbonate)-vitamin D3 12.5 mcg (500 unit) capsule (Calcium with Vit D3) 1 cap PO BID #60 caps 12/03/24 [Rx Confirmed 12/03/24] diclofenac sodium 75 mg tablet,delayed release 75 mg PO DAILY #30 tabs 12/03/24 [Rx Confirmed 12/03/24] oxycodone 5 mg tablet 5 mg PO Q6HR PRN Pain Scale 4 - 7 #0 tabs 12/03/24 [Rx Confirmed 12/03/24] polyethylene glycol 3350 17 gram oral powder packet (HealthyLax) 17 g PO DAILY #0 ea 12/03/24 [Rx Confirmed 12/03/24] rivaroxaban 10 mg tablet (Xarelto) 10 mg PO DAILY #0 tabs 12/03/24 [Rx Confirmed 12/03/24] sennosides 8.6 mg-docusate sodium 50 mg tablet 2 tab PO BID #0 tabs 12/03/24 [Rx Confirmed 12/03/24] Active Medications: Active Medications Generic Name Dose Route Start Last Admin Trade Name Freq PRN Reason Stop Dose Admin Acetaminophen 1,000 mg 12/03/24 22:00 12/04/24 13:16 Acetaminophen 500 Mg Tablet PO 12/03/25 21:59 1,000 mg Q8H CHRISTOPHER Administration Al Hydrox/Mg Hydrox/Simethicone 30 ml 12/03/24 16:45 Mag Hydrox/Al Hydrox/Simeth 30 Ml Udc PO 12/03/25 16:44 Q4H PRN Indigestion Ascorbic Acid 500 mg 12/04/24 08:00 12/04/24 08:40 Ascorbic Acid 500 Mg Tablet PO 12/04/25 07:59 500 mg BID.WITH.MEALS CHRISTOPHER Administration Aspirin 81 mg 12/03/24 21:00 12/04/24 08:40 Aspirin 81 Mg Tablet. PO 12/03/25 20:59 81 mg BID CHRISTOPHER Administration Atorvastatin Calcium 10 mg 12/03/24 22:00 12/03/24 21:20 Atorvastatin 10 Mg Tablet PO 12/03/25 21:59 10 mg HS CHRISTOPHER Administration Bisacodyl 10 mg 12/03/24 16:45 Bisacodyl 10 Mg Supp.Rect MO 12/03/25 16:44 DAILY PRN Constipation Budesonide/Formoterol Fumarate 2 puff 12/04/24 21:00 Budesonide/Formoterol 160-4.5 Mcg 60 Puff/6 Gm Hfa.Aer.Ad INHALATION 12/04/25 20:59 BID CHRISTOPHER Calcium Carbonate 1 tab 12/03/24 21:00 12/04/24 08:40 Calcium Carbonate/Vitamin D3 500 Mg/200 Unit Tablet PO 12/03/25 20:59 1 tab BID CHRISTOPHER Administration Diclofenac Sodium 75 mg 12/04/24 09:00 12/04/24 08:40 Diclofenac Sodium 75 Mg Tablet. PO 12/04/25 08:59 75 mg DAILY CHRISTOPHER Administration Diphenhydramine HCl 25 mg 12/03/24 22:00 12/03/24 21:20 Diphenhydramine 25 Mg Capsule PO 12/03/25 21:59 25 mg QHS CHRISTOPHER Administration Docusate Sodium 100 mg 12/03/24 16:45 12/03/24 18:13 Docusate 100 Mg Capsule PO 12/03/25 16:44 100 mg BID PRN Administration Constipation Docusate Sodium 283 mg 12/03/24 16:45 Docusate Enema 283 Mg/5 Ml Enema MO 12/03/25 16:44 DAILY PRN Constipation Doxycycline Hyclate 100 mg 12/03/24 21:00 12/04/24 08:40 Doxycycline Hyclate 100 Mg Tablet PO 12/10/24 20:59 100 mg BID CHRISTOPHER Administration Isosorbide Mononitrate 30 mg 12/04/24 09:00 12/04/24 08:41 Isosorbide Mononitrate 24hr Er 30 Mg Tab.Er.24h PO 12/04/25 08:59 30 mg QAM CHRISTOPHER Administration Lactulose 30 gm 12/03/24 16:45 Lactulose 20 Gm/30 Ml Udc PO 12/03/25 16:44 DAILY PRN Constipation Levothyroxine Sodium 250 mcg 12/04/24 06:30 12/04/24 05:36 Levothyroxine 125 Mcg Tablet PO 12/04/25 06:29 250 mcg DAILY.0630 CHRISTOPHER Administration Melatonin 10 mg 12/03/24 22:00 12/03/24 21:20 Melatonin 5 Mg Tablet PO 12/03/25 21:59 10 mg QHS CHRISTOPHER Administration Metoprolol Tartrate 50 mg 12/03/24 21:00 12/04/24 08:40 Metoprolol Tartrate 50 Mg Tablet PO 12/03/25 20:59 50 mg BID CHRISTOPHER Administration Oxycodone HCl 10 mg 12/03/24 17:53 12/04/24 13:16 Oxycodone Ir 5 Mg Tablet PO 10 mg Q4HR PRN Administration Pain Scale 6 - 10 Oxycodone HCl 5 mg 12/03/24 17:55 Oxycodone Ir 5 Mg Tablet PO Q4HR PRN Pain Polyethylene Glycol 17 gm 12/04/24 09:00 12/04/24 08:41 Polyethylene Glycol 3350 17 Gm Powd.Pack PO 12/04/25 08:59 Not Given DAILY CHRISOTPHER Rivaroxaban 10 mg 12/04/24 09:00 12/04/24 08:40 Rivaroxaban 10 Mg Tablet PO 12/04/25 08:59 10 mg DAILY CHRISTOPHER Administration Senna/Docusate Sodium 2 tab 12/03/24 21:00 12/04/24 08:41 Sennosides/Docusate 8.6-50mg 1 Tab Tablet PO 12/03/25 20:59 Not Given BID CHRISTOPHER Sodium Chloride 0 ml 12/03/24 16:45 Sodium Chloride 0.9 % 10 Ml Syringe IV-PUSH 12/03/25 16:44 PRN PRN Flush Sodium Chloride 10 ml 12/04/24 09:00 12/04/24 08:41 Sodium Chloride 0.9 % 10 Ml Syringe IV-PUSH 12/04/25 08:59 10 ml BID CHRISTOPHER Administration Tamsulosin HCl 0.4 mg 12/04/24 09:00 12/04/24 08:40 Tamsulosin 0.4 Mg Cap.Er.24h PO 12/04/25 08:59 0.4 mg DAILY CHRISTOPHER Administration Tizanidine HCl 4 mg 12/03/24 22:00 12/03/24 21:20 Tizanidine 4 Mg Tablet PO 12/03/25 21:59 4 mg HS CHRISTOPHER Administration Topiramate 100 mg 12/04/24 09:00 12/04/24 08:40 Topiramate 100 Mg Tablet PO 12/04/25 08:59 100 mg QAM CHRISTOPHER Administration Topiramate 200 mg 12/03/24 22:00 12/03/24 21:21 Topiramate 100 Mg Tablet PO 12/03/25 21:59 200 mg HS CHRISTOPHER Administration Exam Physical Exam Vital Signs: Temp Pulse Resp BP Pulse Ox O2 Del Method 98.3 F 83 18 143/88 H 98 Room Air 12/04/24 08:43 12/04/24 08:43 12/04/24 08:43 12/04/24 08:43 12/04/24 08:43 12/04/24 08:43 Narrative: CONST- alert, in bed HEAD- normocephalic and atraumatic EENT- sclera nonicteric and conjunctiva nonerythemic, moist oral mucosa, pharynxnot visualized NECK- supple, no cervical lymphadenopathy CARDIAC- RRR no abnormal heart tones PULM- diminished without wheeze or rhonchi, RA, no accessory muscle use or coughnoted ABD- S/NT, NABS EXTREM- no edema BLE, calves nontender SKIN- W/D, good turgor, right hip dressing in place surgical site not seen MS- MAEx4 spontaneously with equal strength NEURO- A&Ox3, speech clear and tongue midline, equal facial symmetry PSYCH-mood and behavior appropriate Results - Hospitalist Consult Lab Results Labs: Laboratory Results - last 72 hr 12/04/24 03:41: Corrected WBC 9.1, Uncorrected WBC Count 9.1, RBC 3.31 L, Hgb 11.3 L, Hct 32.8 L, MCV 99.2, MCH 34.3, MCHC 34.6, RDW 13.7, Plt Count 179, MPV 7.7, Neut % (Auto) 67.2, Lymph % (Auto) 20.4, [place] % (Auto) 11.8, Eos % (Auto) 0.3, Baso % (Auto) 0.3, Nucleat RBC Rel Count 0.1, Neut # (Auto) 6.1, Lymph # (Auto) 1.9, [place] # (Auto) 1.1 H, Eos # (Auto) 0.0, Baso # (Auto) 0.0, PHA Creatinine Clear 107.15, Sodium 131 L, Potassium 3.8, Chloride 100, Carbon Dioxide 21.8, Anion Gap 13.0, BUN 13, Creatinine 0.93, Est GFR (CKD-EPI) > 60.0,Glucose 95, Calcium 7.8 L, Total Bilirubin 0.7, AST 21, ALT 37, Alkaline Phosphatase 92, Total Protein 5.1 L, Albumin 3.2 L, Globulin 1.9, Albumin/Globulin Ratio 1.7, Prealbumin 13.4 L Assessment & Plan Assessment/Plan (1) Closed right hip fracture: (2) Avascular necrosis: (3) S/P total hip arthroplasty: (4) Seizure disorder: (5) Hypothyroidism: (6) BPH (benign prostatic hyperplasia): (7) HTN (hypertension): (8) Hyperlipidemia: (9) COPD (chronic obstructive pulmonary disease): (10) CAD (coronary artery disease): Plan Right femoral head fracture with avascular necrosis s/p right hip arthroplasty 12/02/2024 Postoperative anemia - Further plan of care per PMR team for rehabilitative therapy, pain control bowel regimen, DVT prophylaxis, surgical wound care - Please address postoperative questions/concerns to orthopedics team, postoperative antibiotic/vitamin?mineral therapy per Ortho preference - Patient was not previously on chronic rivaroxaban this is for DVT prophylaxis initiated while inpatient - Preop hemoglobin 13.6, trend labs, has not required transfusion to date Chronic conditions 1. Hypertension?metoprolol. BP fairly controlled, pain could be contributory continue to monitor 2. Hyperlipidemia?atorvastatin 3. COPD/asthma?budesonide/formoterol 4. CAD history MS?isosorbide, metoprolol, aspirin 5. Hypothyroid?levothyroxine 6. BPH?tamsulosin 7. Seizures?Topiramate Thank you for consulting us to see this pt. I will be off service starting Sunday evening. Case will be handled by one of my partners if needed. Pt is fairly stable at this time. We will follow pt on an as needed basis. Please call or alert hospitalist if pt develops any signs or symptoms that may require medical evaluation and or intervention. Please arrange for pt after discharge follow up appts with PCP and other specialists. I may or may not have addressed all of patient symptoms, abnormal labs and imaging during this hospitalization. Please ask patient to ask PCP and out patient providers to obtain [facility] record entirely to follow up on illnesses, symptoms, abnormal findings that I have and have not addressed duringthis encounter and hospitalization in out patient setting. Documented By: Danyell Daniels APRN 11/14 09/09 1538 Signed By: <Electronically signed by KB Daniels> 12/04/24 1750 <Electronically signed by Yonis Alves MD> 12/05/24 1012 [facility] Work Phone: [phone]) 199-161205-23-2025 [place] [phone] Hospitalist Consult Note Signed Patient: Rehan Trejo MR#: [id number] : 1965 Acct:[id number] Age/Sex: 59 / M Adm Date: 5 Loc: Room: 8Q0824-9 Type: ADM IN Attending Dr: Paco Jimenez MD Copies to: MD Pee Silva MD Lynn A Stackhouse-Roby, APRN Rafik Massouh, MD~ HPI DATE OF CONSULTATION: 12/04/24 REQUESTING PROVIDER: Paco Jimenez Consult Narrative Reason for Consult: Hypertension HPI: 59-year-old male past medical history significant for seizures, COPD/asthma, hypothyroid, hypertension, BPH. He initially presented to external emergency department December 01 with complaints of pain in the right hip and groin with inability to ambulate, prior injury about 2 weeks prior. Imaging demonstrated right femoral head fracture with suggestion of underlying avascular necrosis. [facility]. Seen by orthopedic surgery on consult and underwent right total hip arthroplasty December 02. Seen by therapy services with recommendations for ongoing rehab and subsequently discharged to the rehab unit December 03. Hospitalist team now consulted for ongoing management of hypertension. Patient seen and examined. Endorses postoperative pain as anticipated. Denies chest pain or palpitations. No cough, dyspnea, or pain with inspiration. No abdominal pain or indigestion, constipation or diarrhea, nausea or vomiting. Nodysuria or retention. No headache or dizziness. No fevers or chills. Review of Systems Review of Systems All other systems reviewed & are negative unless noted below or in HPI [facility] Medical History (Updated 12/04/24 @ 17:48 by Danyell Daniels APRN) CAD (coronary artery disease) Hyperlipidemia COPD (chronic obstructive pulmonary disease) Asthma Seizure disorder Hypothyroidism Implantable loop recorder present Placed 08/2024 HTN (hypertension) BPH (benign prostatic hyperplasia) Surgical History H/O hand surgery History of back surgery H/O foot surgery Family History Father Diabetes Mother Cancer breast Social History Smoking Status: Former smoker Tobacco Type: cigarettes Substance Use Type: Alcohol Meds Medications and Allergies Allergies Penicillins Allergy (Severe, Verified 12/02/24 12:30) Swelling of Throat, Rash procaine (From Novocain) Allergy (Verified 12/02/24 12:30) Unknown Reaction strawberry Allergy (Verified 12/02/24 12:30) Unknown Reaction Home Medications aspirin 81 mg tablet 81 mg PO BID 12/01/24 [History Confirmed 12/03/24] atorvastatin 10 mg tablet 10 mg PO HS 12/01/24 [History Confirmed 12/03/24] diphenhydramine HCl 25 mg capsule (Allergy (diphenhydramine)) 25 mg PO QHS 12/01/24 [History Confirmed 12/03/24] isosorbide mononitrate 30 mg tablet,extended release 24 hr 30 mg PO .am 12/01/24[History Confirmed 12/03/24] levothyroxine 125 mcg tablet 250 mcg PO .am 12/01/24 [History Confirmed 12/03/24] melatonin 12 mg tablet 12 mg PO QHS 12/01/24 [History Confirmed 12/03/24] metoprolol tartrate 50 mg tablet 50 mg PO BID 12/01/24 [History Confirmed 12/03/24] tamsulosin 0.4 mg capsule 0.4 mg PO DAILY 12/01/24 [History Confirmed 12/03/24] tizanidine 4 mg tablet 4 mg PO HS 12/01/24 [History Confirmed 12/03/24] topiramate 100 mg tablet 200 mg PO HS 12/01/24 [History Confirmed 12/03/24] topiramate 100 mg tablet (Topamax) 100 mg PO .am 12/01/24 [History Confirmed 12/03/24] acetaminophen 500 mg tablet 1,000 mg (2 x 500 mg) PO Q8H 7 days #0 tabs 12/03/24[Rx Confirmed 12/03/24] ascorbic acid (vitamin C) 500 mg tablet (Vitamin C) 500 mg PO BID.WITH.MEALS 7 days #14 tabs 12/03/24 [Rx Confirmed 12/03/24] calcium 600 mg (as carbonate)-vitamin D3 12.5 mcg (500 unit) capsule (Calcium with Vit D3) 1 cap POBID #60 caps 12/03/24 [Rx Confirmed 12/03/24] diclofenac sodium 75 mg tablet,delayed release 75 mg PO DAILY #30 tabs 12/03/24 [Rx Confirmed 12/03/24] oxycodone 5 mg tablet 5 mg PO Q6HR PRN Pain Scale 4 - 7 #0 tabs 12/03/24 [Rx Confirmed 12/03/24] polyethylene glycol 3350 17 gram oral powder packet (HealthyLax) 17 g PO DAILY #0 ea 12/03/24 [Rx Confirmed 12/03/24] rivaroxaban 10 mg tablet (Xarelto) 10 mg PO DAILY #0 tabs 12/03/24 [Rx Confirmed 12/03/24] sennosides 8.6 mg-docusate sodium 50 mg tablet 2 tab PO BID #0 tabs 12/03/24 [Rx Confirmed 12/03/24] Active Medications: Active Medications Generic Name Dose Route Start Last Admin Trade Name Freq PRN Reason Stop Dose Admin Acetaminophen 1,000 mg 12/03/24 22:00 12/04/24 13:16 Acetaminophen 500 Mg Tablet PO 12/03/25 21:59 1,000 mg Q8H CHRISTOPHER Administration Al Hydrox/Mg Hydrox/Simethicone 30 ml 12/03/24 16:45 Mag Hydrox/Al Hydrox/Simeth 30 Ml Udc PO 12/03/25 16:44 Q4H PRN Indigestion Ascorbic Acid 500 mg 12/04/24 08:00 12/04/24 08:40 Ascorbic Acid 500 Mg Tablet PO 12/04/25 07:59 500 mg BID.WITH.MEALS CHRISTOPHER Administration Aspirin 81 mg 12/03/24 21:00 12/04/24 08:40 Aspirin 81 Mg Tablet. PO 12/03/25 20:59 81 mg BID CHRISTOPHER Administration Atorvastatin Calcium 10 mg 12/03/24 22:00 12/03/24 21:20 Atorvastatin 10 Mg Tablet PO 12/03/25 21:59 10 mg HS CHRISTOPHER Administration Bisacodyl 10 mg 12/03/24 16:45 Bisacodyl 10 Mg Supp.Rect MO 12/03/25 16:44 DAILY PRN Constipation Budesonide/Formoterol Fumarate 2 puff 12/04/24 21:00 Budesonide/Formoterol 160-4.5 Mcg 60 Puff/6 Gm Hfa.Aer.Ad INHALATION 12/04/25 20:59 BID CHRISTOPHER Calcium Carbonate 1 tab 12/03/24 21:00 12/04/24 08:40 Calcium Carbonate/Vitamin D3 500 Mg/200 Unit Tablet PO 12/03/25 20:59 1 tab BID CHRISTOPHER Administration Diclofenac Sodium 75 mg 12/04/24 09:00 12/04/24 08:40 Diclofenac Sodium 75 Mg Tablet. PO 12/04/25 08:59 75 mg DAILY CHRISTOPHER Administration Diphenhydramine HCl 25 mg 12/03/24 22:00 12/03/24 21:20 Diphenhydramine 25 Mg Capsule PO 12/03/25 21:59 25 mg QHS CHRISTOPHER Administration Docusate Sodium 100 mg 12/03/24 16:45 12/03/24 18:13 Docusate 100 Mg Capsule PO 12/03/25 16:44 100 mg BID PRN Administration Constipation Docusate Sodium 283 mg 12/03/24 16:45 Docusate Enema 283 Mg/5 Ml Enema MO 12/03/25 16:44 DAILY PRN Constipation Doxycycline Hyclate 100 mg 12/03/24 21:00 12/04/24 08:40 Doxycycline Hyclate 100 Mg Tablet PO 12/10/24 20:59 100 mg BID CHRISTOPHER Administration Isosorbide Mononitrate 30 mg 12/04/24 09:00 12/04/24 08:41 Isosorbide Mononitrate 24hr Er 30 Mg Tab.Er.24h PO 12/04/25 08:59 30 mg QAM CHRISTOPHER Administration Lactulose 30 gm 12/03/24 16:45 Lactulose 20 Gm/30 Ml Udc PO 12/03/25 16:44 DAILY PRN Constipation Levothyroxine Sodium 250 mcg 12/04/24 06:30 12/04/24 05:36 Levothyroxine 125 Mcg Tablet PO 12/04/25 06:29 250 mcg DAILY.0630 CHRISTOPHER Administration Melatonin 10 mg 12/03/24 22:00 12/03/24 21:20 Melatonin 5 Mg Tablet PO 12/03/25 21:59 10 mg QHS CHRISTOPHER Administration Metoprolol Tartrate 50 mg 12/03/24 21:00 12/04/24 08:40 Metoprolol Tartrate 50 Mg Tablet PO 12/03/25 20:59 50 mg BID CHRISTOPHER Administration Oxycodone HCl 10 mg 12/03/24 17:53 12/04/24 13:16 Oxycodone Ir 5 Mg Tablet PO 10 mg Q4HR PRN Administration Pain Scale 6 - 10 Oxycodone HCl 5 mg 12/03/24 17:55 Oxycodone Ir 5 Mg Tablet PO Q4HR PRN Pain Polyethylene Glycol 17 gm 12/04/24 09:00 12/04/24 08:41 Polyethylene Glycol 3350 17 Gm Powd.Pack PO 12/04/25 08:59 Not Given DAILY CHRISTOPHER Rivaroxaban 10 mg 12/04/24 09:00 12/04/24 08:40 Rivaroxaban 10 Mg Tablet PO 12/04/25 08:59 10 mg DAILY CHRISTOPHER Administration Senna/Docusate Sodium 2 tab 12/03/24 21:00 12/04/24 08:41 Sennosides/Docusate 8.6-50mg 1 Tab Tablet PO 12/03/25 20:59 Not Given BID CHRISTOPHER Sodium Chloride 0 ml 12/03/24 16:45 Sodium Chloride 0.9 % 10 Ml Syringe IV-PUSH 12/03/25 16:44 PRN PRN Flush Sodium Chloride 10 ml 12/04/24 09:00 12/04/24 08:41 Sodium Chloride 0.9 % 10 Ml Syringe IV-PUSH 12/04/25 08:59 10 ml BID CHRISTOPHER Administration Tamsulosin HCl 0.4 mg 12/04/24 09:00 12/04/24 08:40 Tamsulosin 0.4 Mg Cap.Er.24h PO 12/04/25 08:59 0.4 mg DAILY CHRISTOPHER Administration Tizanidine HCl 4 mg 12/03/24 22:00 12/03/24 21:20 Tizanidine 4 Mg Tablet PO 12/03/25 21:59 4 mg HS CHRISTOPHER Administration Topiramate 100 mg 12/04/24 09:00 12/04/24 08:40 Topiramate 100 Mg Tablet PO 12/04/25 08:59 100 mg QAM CHRISTOPHER Administration Topiramate 200 mg 12/03/24 22:00 12/03/24 21:21 Topiramate 100 Mg Tablet PO 12/03/25 21:59 200 mg HS CHRISTOPHER Administration Exam Physical Exam Vital Signs: Temp Pulse Resp BP Pulse Ox O2 Del Method 98.3 F 83 18 143/88 H 98 Room Air 12/04/24 08:43 12/04/24 08:43 12/04/24 08:43 12/04/24 08:43 12/04/24 08:43 12/04/24 08:43 Narrative: CONST- alert, in bed HEAD- normocephalic and atraumatic EENT- sclera nonicteric and conjunctiva nonerythemic, moist oral mucosa, pharynxnot visualized NECK- supple, no cervical lymphadenopathy CARDIAC- RRR no abnormal heart tones PULM- diminished without wheeze or rhonchi, RA, no accessory muscle use or coughnoted ABD- S/NT, NABS EXTREM- no edema BLE, calves nontender SKIN- W/D, good turgor, right hip dressing in place surgical site not seen MS- MAEx4 spontaneously with equal strength NEURO- A&Ox3, speech clear and tongue midline, equal facial symmetry PSYCH-mood and behavior appropriate Results - Hospitalist Consult Lab Results Labs: Laboratory Results - last 72 hr 12/04/24 03:41: Corrected WBC 9.1, Uncorrected WBC Count 9.1, RBC 3.31 L, Hgb 11.3 L, Hct 32.8 L, MCV 99.2, MCH 34.3, MCHC 34.6, RDW 13.7, Plt Count 179, MPV 7.7, Neut % (Auto) 67.2, Lymph % (Auto) 20.4, [place] % (Auto) 11.8, Eos % (Auto) 0.3, Baso % (Auto) 0.3, Nucleat RBC Rel Count 0.1, Neut # (Auto) 6.1, Lymph # (Auto) 1.9, [place] # (Auto) 1.1 H, Eos # (Auto) 0.0, Baso # (Auto) 0.0, PHA CreatinineClear 107.15, Sodium 131 L, Potassium 3.8, Chloride 100, Carbon Dioxide 21.8, Anion Gap 13.0, BUN 13, Creatinine 0.93, Est GFR (CKD-EPI) > 60.0,Glucose 95, Calcium 7.8 L, Total Bilirubin 0.7, AST 21, ALT 37, Alkaline Phosphatase 92, Total Protein 5.1 L, Albumin 3.2 L, Globulin 1.9, Albumin/Globul in Ratio 1.7, Prealbumin 13.4 L Assessment & Plan Assessment/Plan (1) Closed right hip fracture: (2) Avascular necrosis: (3) S/P total hip arthroplasty: (4) Seizure disorder: (5) Hypothyroidism: (6) BPH (benign prostatic hyperplasia): (7) HTN (hypertension): (8) Hyperlipidemia: (9) COPD (chronic obstructive pulmonary disease): (10) CAD (coronary artery disease): Plan Right femoral head fracture with avascular necrosis s/p right hip arthroplasty 12/02/2024 Postoperative anemia - Further plan of care per PMR team for rehabilitative therapy, pain control bowel regimen, DVT prophylaxis, surgical wound care - Please address postoperative questions/concerns to orthopedics team, postoperative antibiotic/vitamin?mineral therapy per Ortho preference - Patient was not previously on chronic rivaroxaban this is for DVT prophylaxis initiated while inpatient - Preop hemoglobin 13.6, trend labs, has not required transfusion to date Chronic conditions 1. Hypertension?metoprolol. BP fairly controlled, pain could be contributory continue to monitor 2. Hyperlipidemia?atorvastatin 3. COPD/asthma?budesonide/formoterol 4. CAD history MS?isosorbide, metoprolol, aspirin 5. Hypothyroid?levothyroxine 6. BPH?tamsulosin 7. Seizures?Topiramate Thank you for consulting us to see this pt. I will be off service starting Sunday evening. Case will be handled by one of my partners if needed. Pt is fairly stable at this time. We will follow pt on an as needed basis. Please call or alert hospitalist if pt develops any signs or symptoms that may require medical evaluation and or intervention. Please arrange for pt after discharge follow up appts with PCP and other specialists. I may or may not have addressed all of patient symptoms, abnormal labs and imaging during this hospitalization. Please ask patient to ask PCP and out patient providers to [facility] entirely to followup on illnesses, symptoms, abnormal findings that I have and have not addressed duringthis encounter and hospitalization in out patient setting. Documented By: Danyell Daniels APRN 11/14 09/09 1538 Signed By: 12/04/24 1750 12/05/24 1012 [facility]05-22-2025 History and physical note Author Paco Jimenez [facility] Note Date/Time December 04, 2024 2:52p m [facility] [address] [place] [address] Physiatry (Rehab) H&P Signed Patient: Rehan Trejo MR#: [id number] : 1965 Acct:[id number] Age/Sex: 59 / M Adm Date: 5 Loc: Room: [address] [place] [address] Type: ADM IN Attending Dr: Paco Jimenez MD Copies to: MD Pee Silva MD Mark Khalil, MD, RES~ Date of Service: 12/04/2024 HPI The patient was seen and examined on: 12/04/24 Etiologic Diagnosis/Impairment Group: Postoperative rehab History of Present Illness: Mr. Trejo is a 59 year old male with a past medical history of right hip AVN, hypertension, seizure disorder, BPH, loop recorder placed 08/2024, GERD, asthma overlap COPD and hypothyroidism who was admitted to the inpatient rehab unit sp posterior approach right total hip arthroplasty with preop course complicated by subcapital femoral neck fracture AVN. Rehan was examined this morning seated upright on side of bed with physical therapy session in progress. Mentions responsibilities at home caring for his , mother and [id number]. Shares insight into mechanism of injury of the right quad tear 18 months ago with reinjury 2 to 3 weeks ago followed by fall in process of sit?stand from chair at home. Mentions near complete dependence on upper extremity for sit/stand. He is uncomfortable, moaning in pain and exhausted by simple posturing while seated upright bedside. Requests his inhaler. Reports no sleep overnight due topersistent high pain levels in both hips, R greater than L. Left hip pain and lower extremity weakness stable, chronic. Right hip pain new on chronic 8?9/10 and worse with minimal movement but is motivated and managing to work through the pain. [facility] Medical History COPD (chronic obstructive pulmonary disease) Asthma Seizure disorder Hypothyroidism Implantable loop recorder present Placed 08/2024 HTN (hypertension) BPH (benign prostatic hyperplasia) Surgical History H/O hand surgery History of back surgery H/O foot surgery Family History Father Diabetes Mother Cancer breast Social History Smoking Status: Former smoker Tobacco Type: cigarettes Substance Use Type: Alcohol Meds Medications and Allergies Allergies Penicillins Allergy (Severe, Verified 12/02/24 12:30) Swelling of Throat, Rash procaine (From Novocain) Allergy (Verified 12/02/24 12:30) Unknown Reaction strawberry Allergy (Verified 12/02/24 12:30) Unknown Reaction Home and Active Meds: Home Medications aspirin 81 mg tablet 81 mg PO BID 12/01/24 [History Confirmed 12/03/24] atorvastatin 10 mg tablet 10 mg PO HS 12/01/24 [History Confirmed 12/03/24] diphenhydramine HCl 25 mg capsule (Allergy (diphenhydramine)) 25 mg PO QHS 12/01/24 [History Confirmed 12/03/24] isosorbide mononitrate 30 mg tablet,extended release 24 hr 30 mg PO .am 12/01/24[History Confirmed 12/03/24] levothyroxine 125 mcg tablet 250 mcg PO .am 12/01/24 [History Confirmed 12/03/24] melatonin 12 mg tablet 12 mg PO QHS 12/01/24 [History Confirmed 12/03/24] metoprolol tartrate 50 mg tablet 50 mg PO BID 12/01/24 [History Confirmed 12/03/24] tamsulosin 0.4 mg capsule 0.4 mg PO DAILY 12/01/24 [History Confirmed 12/03/24] tizanidine 4 mg tablet 4 mg PO HS 12/01/24 [History Confirmed 12/03/24] topiramate 100 mg tablet 200 mg PO HS 12/01/24 [History Confirmed 12/03/24] topiramate 100 mg tablet (Topamax) 100 mg PO .am 12/01/24 [History Confirmed 12/03/24] acetaminophen 500 mg tablet 1,000 mg (2 x 500 mg) PO Q8H 7 days #0 tabs 12/03/24[Rx Confirmed 12/03/24] ascorbic acid (vitamin C) 500 mg tablet (Vitamin C) 500 mg PO BID.WITH.MEALS 7 days #14 tabs 12/03/24 [Rx Confirmed 12/03/24] calcium 600 mg (as carbonate)-vitamin D3 12.5 mcg (500 unit) capsule (Calcium with Vit D3) 1 cap PO BID #60 caps 12/03/24 [Rx Confirmed 12/03/24] diclofenac sodium 75 mg tablet,delayed release 75 mg PO DAILY #30 tabs 12/03/24 [Rx Confirmed 12/03/24] oxycodone 5 mg tablet 5 mg PO Q6HR PRN Pain Scale 4 - 7 #0 tabs 12/03/24 [Rx Confirmed 12/03/24] polyethylene glycol 3350 17 gram oral powder packet (HealthyLax) 17 g PO DAILY #0 ea 12/03/24 [Rx Confirmed 12/03/24] rivaroxaban 10 mg tablet (Xarelto) 10 mg PO DAILY #0 tabs 12/03/24 [Rx Confirmed 12/03/24] sennosides 8.6 mg-docusate sodium 50 mg tablet 2 tab PO BID #0 tabs 12/03/24 [Rx Confirmed 12/03/24] Active Medications Acetaminophen (Acetaminophen 500 Mg Tablet) 1,000 mg PO Q8H CHRISTOPHER Stop: 12/03/25 21:59 Last Admin: 12/04/24 05:36 Dose: 1,000 mg Al Hydrox/Mg Hydrox/Simethicone (Mag Hydrox/Al Hydrox/Simeth 30 Ml Udc) 30 ml PO Q4H PRN PRN Reason: Indigestion Stop: 12/03/25 16:44 Ascorbic Acid (Ascorbic Acid 500 Mg Tablet) 500 mg PO BID.WITH.MEALS CHRISTOPHER Stop: 12/04/25 07:59 Last Admin: 12/04/24 08:40 Dose: 500 mg Aspirin (Aspirin 81 Mg Tablet.) 81 mg PO BID CHRISTOPHER Stop: 12/03/25 20:59 Last Admin: 12/04/24 08:40 Dose: 81 mg Atorvastatin Calcium (Atorvastatin 10 Mg Tablet) 10 mg PO HS CHRISTOPHER Stop: 12/03/25 21:59 Last Admin: 12/03/24 21:20 Dose: 10 mg Bisacodyl (Bisacodyl 10 Mg Supp.Rect) 10 mg MO DAILY PRN PRN Reason: Constipation Stop: 12/03/25 16:44 Calcium Carbonate (Calcium Carbonate/Vitamin D3 500 Mg/200 Unit Tablet) 1 tab PO BID CHRISTOPHER Stop: 12/03/25 20:59 Last Admin: 12/04/24 08:40 Dose: 1 tab Diclofenac Sodium (Diclofenac Sodium 75 Mg Tablet.) 75 mg PO DAILY CHRISTOPHER Stop: 12/04/25 08:59 Last Admin: 12/04/24 08:40 Dose: 75 mg Diphenhydramine HCl (Diphenhydramine 25 Mg Capsule) 25 mg PO QHS CHRISTOPHER Stop: 12/03/25 21:59 Last Admin: 12/03/24 21:20 Dose: 25 mg Docusate Sodium (Docusate 100 Mg Capsule) 100 mg PO BID PRN PRN Reason: Constipation Stop: 12/03/25 16:44 Last Admin: 12/03/24 18:13 Dose: 100 mg Docusate Sodium (Docusate Enema 283 Mg/5 Ml Enema) 283 mg MO DAILY PRN PRN Reason: Constipation Stop: 12/03/25 16:44 Doxycycline Hyclate (Doxycycline Hyclate 100 Mg Tablet) 100 mg PO BID CHRISTOPHER Stop: 12/10/24 20:59 Last Admin: 12/04/24 08:40 Dose: 100 mg Isosorbide Mononitrate (Isosorbide Mononitrate 24hr Er 30 Mg Tab.Er.24h) 30 mg PO QAM CHRISTOPHER Stop: 12/04/25 08:59 Last Admin: 12/04/24 08:41 Dose: 30 mg Lactulose (Lactulose 20 Gm/30 Ml Udc) 30 gm PO DAILY PRN PRN Reason: Constipation Stop: 12/03/25 16:44 Levothyroxine Sodium (Levothyroxine 125 Mcg Tablet) 250 mcg PO DAILY.06 [facility] Stop: 12/04/25 06:29 Last Admin: 12/04/24 05:36 Dose: 250 mcg Melatonin (Melatonin 5 Mg Tablet) 10 mg PO QHS CHRISTOPHER Stop: 12/03/25 21:59 Last Admin: 12/03/24 21:20 Dose: 10 mg Metoprolol Tartrate (Metoprolol Tartrate 50 Mg Tablet) 50 mg PO BID CHRISTOPHER Stop: 12/03/25 20:59 Last Admin: 12/04/24 08:40 Dose: 50 mg Oxycodone HCl (Oxycodone Ir 5 Mg Tablet) 10 mg PO Q4HR PRN PRN Reason: Pain Scale 6 - 10 Last Admin: 12/03/24 18:13 Dose: 10 mg Oxycodone HCl (Oxycodone Ir 5 Mg Tablet) 5 mg PO Q4HR PRN PRN Reason: Pain Polyethylene Glycol (Polyethylene Glycol 3350 17 Gm Powd.Pack) 17 gm PO DAILY CHRISTOPHER Stop: 12/04/25 08:59 Last Admin: 12/04/24 08:41 Dose: Not Given Rivaroxaban (Rivaroxaban 10 Mg Tablet) 10 mg PO DAILY CHRISTOPHER Stop: 12/04/25 08:59 Last Admin: 12/04/24 08:40 Dose: 10 mg Senna/Docusate Sodium (Sennosides/Docusate 8.6-50mg 1 Tab Tablet) 2 tab PO BID [facility] Stop: 12/03/25 20:59 Last Admin: 12/04/24 08:41 Dose: Not Given Sodium Chloride (Sodium Chloride 0.9 % 10 Ml Syringe) 0 ml IV-PUSH PRN PRN PRN Reason: Flush Stop: 12/03/25 16:44 Sodium Chloride (Sodium Chloride 0.9 % 10 Ml Syringe) 10 ml IV-PUSH BID CHRISTOPHER Stop: 12/04/25 08:59 Last Admin: 12/04/24 08:41 Dose: 10 ml Tamsulosin HCl (Tamsulosin 0.4 Mg Cap.Er.24h) 0.4 mg PO DAILY [facility] Stop: 12/04/25 08:59 Last Admin: 12/04/24 08:40 Dose: 0.4 mg Tizanidine HCl (Tizanidine 4 Mg Tablet) 4 mg PO [facility] Stop: 12/03/25 21:59 Last Admin: 12/03/24 21:20 Dose: 4 mg Topiramate (Topiramate 100 Mg Tablet) 100 mg PO QAM [facility] Stop: 12/04/25 08:59 Last Admin: 12/04/24 08:40 Dose: 100 mg Topiramate (Topiramate 100 Mg Tablet) 200 mg PO [facility] Stop: 12/03/25 21:59 Last Admin: 12/03/24 21:21 Dose: 200 mg Exam Physical Exam Vital Signs: Temp Pulse Resp BP Pulse Ox O2 Del Method 98.3 F 83 18 143/88 H 98 Room Air 12/04/24 08:43 12/04/24 08:43 12/04/24 08:43 12/04/24 08:43 12/04/24 08:43 12/04/24 08:43 Narrative: General: Awake, alert, seated upright slouched on side of bed deconditioned, uncomfortably maintaining posture and moaning in pain HEENT: head atraumatic, normocephalic, moist mucous membranes Neck: No JVD, supple no masses, no tracheal deviation CVS: Audible S1/S2, regular rate and rhythm, no murmurs or gallops Respiratory: Somewhat diminished or difficult but clear without wheezing or crackles heard and with symmetric expansion GI: soft, nondistended, nontender, positive bowel sounds with no organomegaly Extremity: Overt asymmetry of quadricep muscle, reduced/atrophy of right compared to left with reduced skeletal mass lower extremities overall. Knee joint hypertrophy/enlarged plateaus. Minimal ROM markedly limited by pain. Neuro: AOx3, CN II-VII intact. No tremor, sensation intact Skin: dry, intact no rashes or lesions Results - Phys. Rehab Labs Labs: Laboratory Results - last 24 hr 12/04/24 03:41 Corrected WBC 9.1 Uncorrected WBC Count 9.1 RBC 3.31 L Hgb 11.3 L Hct 32.8 L MCV 99.2 MCH 34.3 MCHC 34.6 RDW 13.7 Plt Count 179 MPV 7.7 Neut % (Auto) 67.2 Lymph % (Auto) 20.4 [place] % (Auto) 11.8 Eos % (Auto) 0.3 Baso % (Auto) 0.3 Nucleat RBC Rel Count 0.1 Neut # (Auto) 6.1 Lymph # (Auto) 1.9 [place] # (Auto) 1.1 H Eos # (Auto) 0.0 Baso # (Auto) 0.0 PHA Creatinine Clear 107.15 Sodium 131 L Potassium 3.8 Chloride 100 Carbon Dioxide 21.8 Anion Gap 13.0 BUN 13 Creatinine 0.93 Est GFR (CKD-EPI) > 60.0 Glucose 95 Calcium 7.8 L Total Bilirubin 0.7 AST 21 ALT 37 Alkaline Phosphatase 92 Total Protein 5.1 L Albumin 3.2 L Globulin 1.9 Albumin/Globulin Ratio 1.7 Prealbumin 13.4 L Additional Results Results Comment: I reviewed clinical lab tests, radiology reports and obtained and summated medical records and have ordered follow up lab tests and imaging studies as needed for rehabilitation care. Individualized Plan of Care Individualized Plan of Care Plan of Care: Individualized Overall Plan of Care: Admit Date/Time: 12/03/24 Expected LOS: 12 Days Expected Discharge Destination: Home Rehabilitation IGC: 8.11 Primary Diagnosis: as above Patient?s/Family?s anticipated outcomes/personal goals: To have patient become more independent and to return home. Medical/ Functional Prognosis: Good Anticipated Functional Outcomes/Goals and Interventions: -Therapy Functional Outcome/Goal: Mobility/Locomotion: Patient likely to be independent with ambulation with assistive device. Anticipated interventions: Physician management, PT, OT, Dietitian, Rehab Nursing - Therapy Functional Outcome/Goal: Self Care: Patient likely to be functionally independent for activities of daily living using assistive / adaptive equipment as needed. Anticipated interventions: Physician management, PT, OT, Dietitian, Rehab Nursing - Therapy Functional Outcome/Goal: Bladder/Bowel Management: Patient likely to be independent with bladder care and independent with bowel care. Anticipated interventions: Physician management, PT, OT, Dietitian, Rehab Nursing -Therapy Functional Outcome/Goal: Communication/Cognition: Patient will be able to communicate fully and be safe cognitively. Anticipated interventions: Physician management, PT, OT, Dietitian, Rehab Nursing -Therapy Functional Outcome/Goal: Patient will be independent for bed mobility and transfers Anticipated interventions: Physician management, PT, OT, Dietitian, Rehab Nursing -Therapy Functional Outcome/Goal: Patient will improve endurance to be able to tolerate all daily self care activities and avocational activities. Anticipated interventions: Physician management, PT, OT, Nutrition, Rehab Nursing -Therapy Functional Outcome/Goal: Patient will understand and assimilate / integrate education regarding management of their medical conditions to maintainhealth and wellbeing. Anticipated interventions: Physician management, PT, OT, Dietitian, Rehab Nursing Required Therapy PT: 1.5 hour per day at least 5 days per week with additional therapy on as needed basis. Comments: PT to improve pt's strength, endurance, bed mobility, transfers (sit-stand), standing balance, gait quality on level surfaces and stairs, coordination and functional ADL skills. Will also work to improve pt's safety awareness during transfers and ambulation. OT: 1.5 hour per day at least 5 days per week with additional therapy on as needed basis. Comments: OT for basic ADL re-training (bathing, dressing, toileting, continence, grooming, feeding, transferring), to increase activity tolerance andfunctional mobility and to evaluate for adaptive and assistive devices. Will work to improve pt's endurance and educate pt on fall prevention and energy conservation techniques-pacing strategies and proper breathing techniques duringfunctional tasks. Other: Nutrition, Rehab nursing, Wound, P&O RATIONALE FOR IRF ADMISSION: Patient has both medical and functional complexities that require 24 hour daily monitoring and intervention from Drywall Installer as well as other consulting physicians including internal medicine as well as 24 hour daily soyfreeze operator nursing - for medical safe / optimal management. Patient requires interdisciplinary therapy team rehabilitation care including OT, PT, SW, Rehab Nursing, requires and can tolerate at least 3 hoursof daily OT and PT therapy at least 5 days weekly. The following medical conditions significantly impact the rehabilitation process and are being addressed daily and can not be managed at home or in a lesser intense medical setting: Refer to above problem oriented plan of care Assessment/Plan (1) S/P total hip arthroplasty: (2) Seizure disorder: (3) Alcohol dependence: (4) Hypothyroidism: (5) BPH (benign prostatic hyperplasia): (6) HTN (hypertension): (7) Avascular necrosis: (8) Closed right hip fracture: (9) Impaired mobility and activities of daily living: Plan #Mr. Trejo is a 59 year old male with a past medical history of right hip AVN, hypertension, seizure disorder, BPH, loop recorder placed 08/2024, GERD, asthma overlap COPD and hypothyroidism who was admitted to the inpatient rehab unit sp posterior approach right total hip arthroplasty with preop course complicated by subcapital femoral neck fracture AVN. -Postoperative course has been uncomplicated and medically stable. -PT/OT eval: Two-person assist for all mobility, max VC for CORONA precautions. -Preoperative course with medical complexity may indicate a protracted course ofrehabilitation. Seizure disorder?continue Topamax 100 g p.o. daily, 200 mg p.o. nightly Alcohol dependence?Reports no cravings. monitor vitals, symptoms daily. Asthma and COPD?albuterol as needed for shortness of breath, start symbicort maintenance inhaler Hypertension?metoprolol 50 mg twice daily Hyperthyroidism?250 mcg daily Postoperative Pain?tylenol, oxycodone every 4 hours as needed Muscle Spasm?tizanidine 4 mg nightly BPH?tamsulosin 0.4 mg daily Constipation, chronic?docusate as needed daily Continue home meds?aspirin Recommend he start at least 3 hours daily, at least 5 days/week, of physical andoccupational therapy, with additional therapy as needed to address functional impairment related to above documented medical conditions and facilitate community discharge home in a timely fashion. Patient has medical complexity that cannot be best managed at a lower level of care and requires at least 3 times weekly encounters with group supervisor yard for medical management and for plan of care review / changes. Patient was personally seen by me, Dr. Jimenez, on the day of encounter, reviewed the history and the relevant portions of the chart, including current orders, allied health and technical sales consultant notes, labs/imaging and performed ulloa elements of exam and I formulated the plan of care and facilitated the medical decision making and confirmed the resident physician note, as above I completed a substantive portion of this encounter, the medical decision makingportion of this note in its entirety, including Allied health note review, nursing note review, technical sales consultant note review, discussion with nursing and case management, and more than 50% of my time was spent on counseling and coordination of care, time spent 40 minutes Documented By: Paco Jimenez MD [id number] Signed By: <Electronically signed by Paco Jimenez MD> 12/04/24 1452 <Electronically signed by MD ANÍBAL Tracy> 12/04/24 1300 [facility] Work Phone: 1(709) 984-324905-22-2025 [place] [address] Physiatry (Rehab) H&P Signed Patient: Rehan Trejo MR#: [id number] : 1965 Acct:[id number] Age/Sex: 59 / M Adm Date: 5 Loc: Room: [address] [place] [address] Type: ADM IN Attending Dr: Paco Jimenez MD Copies to: MD Pee Silva MD Mark Khalil, MD, RES~ Date of Service: 12/04/2024 HPI The patient was seen and examined on: 12/04/24 Etiologic Diagnosis/Impairment Group: Postoperative rehab History of Present Illness: Mr. Trejo is a 59 year old male with a past medical history of right hip AVN, hypertension, seizure disorder, BPH, loop recorder placed 08/2024, GERD, asthma overlap COPD and hypothyroidism who was admitted to the inpatient rehab unit sp posterior approach right total hip arthroplasty with preop course complicated by subcapital femoral neck fracture AVN. Rehan was examined this morning seatedupright on side of bed with physical therapy session in progress. Mentions responsibilities at homecaring for his , mother and [id number]. Shares insight into mechanism of injury of the rightquad tear 18 months ago with reinjury 2 to 3 weeks ago followed by fall in process of sit?stand from chair at home. Mentions near complete dependence on upper extremity for sit/stand. He is uncomfortable, moaning in pain and exhausted by simple posturing while seated upright bedside. Requests his inhaler. Reports no sleep overnight due topersistent high pain levels in both hips, Rgreater than L. Left hip pain and lower extremity weakness stable, chronic. Right hip pain new on chronic ?10 and worse with minimal movement but is motivated and managing to work through the pain. [facility] Medical History COPD (chronic obstructive pulmonary disease) Asthma Seizure disorder Hypothyroidism Implantable loop recorder present Placed 08/2024 HTN (hypertension) BPH (benign prostatic hyperplasia) Surgical History H/O hand surgery History of back surgery H/O foot surgery Family History Father Diabetes Mother Cancer breast Social History Smoking Status: Former smoker Tobacco Type: cigarettes Substance Use Type: Alcohol Meds Medications and Allergies Allergies Penicillins Allergy (Severe, Verified 12/02/24 12:30) Swelling of Throat, Rash procaine (From Novocain) Allergy (Verified 12/02/24 12:30) Unknown Reaction strawberry Allergy (Verified 12/02/24 12:30) Unknown Reaction Home and Active Meds: Home Medications aspirin 81 mg tablet 81 mg PO BID 12/01/24 [History Confirmed 12/03/24] atorvastatin 10 mg tablet 10 mg PO HS 12/01/24 [History Confirmed 12/03/24] diphenhydramine HCl 25 mg capsule (Allergy (diphenhydramine)) 25 mg PO QHS 12/01/24 [History Confirmed 12/03/24] isosorbide mononitrate 30 mg tablet,extended release 24 hr 30 mg PO .am 12/01/24[History Confirmed 12/03/24] levothyroxine 125 mcg tablet 250 mcg PO .am 12/01/24 [History Confirmed 12/03/24] melatonin 12 mg tablet 12 mg PO QHS 12/01/24 [History Confirmed 12/03/24] metoprolol tartrate 50 mg tablet 50 mg PO BID 12/01/24 [History Confirmed 12/03/24] tamsulosin 0.4 mg capsule 0.4 mg PO DAILY 12/01/24 [History Confirmed 12/03/24] tizanidine 4 mg tablet 4 mg PO HS 12/01/24 [History Confirmed 12/03/24] topiramate 100 mg tablet 200 mg PO HS 12/01/24 [History Confirmed 12/03/24] topiramate 100 mg tablet (Topamax) 100 mg PO .am 12/01/24 [History Confirmed 12/03/24] acetaminophen 500 mg tablet 1,000 mg (2 x 500 mg) PO Q8H 7 days #0 tabs 12/03/24[Rx Confirmed 12/03/24] ascorbic acid (vitamin C) 500 mg tablet (Vitamin C) 500 mg PO BID.WITH.MEALS 7 days #14 tabs 12/03/24 [Rx Confirmed 12/03/24] calcium 600 mg (as carbonate)-vitamin D3 12.5 mcg (500 unit) capsule (Calcium with Vit D3) 1 cap POBID #60 caps 12/03/24 [Rx Confirmed 12/03/24] diclofenac sodium 75 mg tablet,delayed release 75 mg PO DAILY #30 tabs 12/03/24 [Rx Confirmed 12/03/24] oxycodone 5 mg tablet 5 mg PO Q6HR PRN Pain Scale 4 - 7 #0 tabs 12/03/24 [Rx Confirmed 12/03/24] polyethylene glycol 3350 17 gram oral powder packet (HealthyLax) 17 g PO DAILY #0 ea 12/03/24 [Rx Confirmed 12/03/24] rivaroxaban 10 mg tablet (Xarelto) 10 mg PO DAILY #0 tabs 12/03/24 [Rx Confirmed 12/03/24] sennosides 8.6 mg-docusate sodium 50 mg tablet 2 tab PO BID #0 tabs 12/03/24 [Rx Confirmed 12/03/24] Active Medications Acetaminophen (Acetaminophen 500 Mg Tablet) 1,000 mg PO Q8H [facility] Stop: 12/03/25 21:59 Last Admin: 12/04/24 05:36 Dose: 1,000 mg Al Hydrox/Mg Hydrox/Simethicone (Mag Hydrox/Al Hydrox/Simeth 30 Ml Udc) 30 ml PO Q4H PRN PRN Reason: Indigestion Stop: 12/03/25 16:44 Ascorbic Acid (Ascorbic Acid 500 Mg Tablet) 500 mg PO BID.WITH.MEALS [facility] Stop: 12/04/25 07:59 Last Admin: 12/04/24 08:40 Dose: 500 mg Aspirin (Aspirin 81 Mg Tablet.) 81 mg PO BID [facility] Stop: 12/03/25 20:59 Last Admin: 12/04/24 08:40 Dose: 81 mg Atorvastatin Calcium (Atorvastatin 10 Mg Tablet) 10 mg PO HS [facility] Stop: 12/03/25 21:59 Last Admin: 12/03/24 21:20 Dose: 10 mg Bisacodyl (Bisacodyl 10 Mg Supp.Rect) 10 mg MO DAILY PRN PRN Reason: Constipation Stop: 12/03/25 16:44 Calcium Carbonate (Calcium Carbonate/Vitamin D3 500 Mg/200 Unit Tablet) 1 tab PO BID [facility] Stop: 12/03/25 20:59 Last Admin: 12/04/24 08:40 Dose: 1 tab Diclofenac Sodium (Diclofenac Sodium 75 Mg Tablet.) 75 mg PO DAILY [facility] Stop: 12/04/25 08:59 Last Admin: 12/04/24 08:40 Dose: 75 mg Diphenhydramine HCl (Diphenhydramine 25 Mg Capsule) 25 mg PO QHS [facility] Stop: 12/03/25 21:59 Last Admin: 12/03/24 21:20 Dose: 25 mg Docusate Sodium (Docusate 100 Mg Capsule) 100 mg PO BID PRN PRN Reason: Constipation Stop: 12/03/25 16:44 Last Admin: 12/03/24 18:13 Dose: 100 mg Docusate Sodium (Docusate Enema 283 Mg/5 Ml Enema) 283 mg MO DAILY PRN PRN Reason: Constipation Stop: 12/03/25 16:44 Doxycycline Hyclate (Doxycycline Hyclate 100 Mg Tablet) 100 mg PO BID [facility] Stop: 12/10/24 20:59 Last Admin: 12/04/24 08:40 Dose: 100 mg Isosorbide Mononitrate (Isosorbide Mononitrate 24hr Er 30 Mg Tab.Er.24h) 30 mg PO QAM [facility] Stop: 12/04/25 08:59 Last Admin: 12/04/24 08:41 Dose: 30 mg Lactulose (Lactulose 20 Gm/30 Ml Udc) 30 gm PO DAILY PRN PRN Reason: Constipation Stop: 12/03/25 16:44 Levothyroxine Sodium (Levothyroxine 125 Mcg Tablet) 250 mcg PO DAILY.629 [facility] Stop: 12/04/25 06:29 Last Admin: 12/04/24 05:36 Dose: 250 mcg Melatonin (Melatonin 5 Mg Tablet) 10 mg PO QHS [facility] Stop: 12/03/25 21:59 Last Admin: 12/03/24 21:20 Dose: 10 mg Metoprolol Tartrate (Metoprolol Tartrate 50 Mg Tablet) 50 mg PO BID [facility] Stop: 12/03/25 20:59 Last Admin: 12/04/24 08:40 Dose: 50 mg Oxycodone HCl (Oxycodone Ir 5 Mg Tablet) 10 mg PO Q4HR PRN PRN Reason: Pain Scale 6 - 10 Last Admin: 12/03/24 18:13 Dose: 10 mg Oxycodone HCl (Oxycodone Ir 5 Mg Tablet) 5 mg PO Q4HR PRN PRN Reason: Pain Polyethylene Glycol (Polyethylene Glycol 3350 17 Gm Powd.Pack) 17 gm PO DAILY [facility] Stop: 12/04/25 08:59 Last Admin: 12/04/24 08:41 Dose: Not Given Rivaroxaban (Rivaroxaban 10 Mg Tablet) 10 mg PO DAILY [facility] Stop: 12/04/25 08:59 Last Admin: 12/04/24 08:40 Dose: 10 mg Senna/Docusate Sodium (Sennosides/Docusate 8.6-50mg 1 Tab Tablet) 2 tab PO BID [facility] Stop: 12/03/25 20:59 Last Admin: 12/04/24 08:41 Dose: Not Given Sodium Chloride (Sodium Chloride 0.9 % 10 Ml Syringe) 0 ml IV-PUSH PRN PRN PRN Reason: Flush Stop: 12/03/25 16:44 Sodium Chloride (Sodium Chloride 0.9 % 10 Ml Syringe) 10 ml IV-PUSH BID [facility] Stop: 12/04/25 08:59 Last Admin: 12/04/24 08:41 Dose: 10 ml Tamsulosin HCl (Tamsulosin 0.4 Mg Cap.Er.24h) 0.4 mg PO DAILY [facility] Stop: 12/04/25 08:59 Last Admin: 12/04/24 08:40 Dose: 0.4 mg Tizanidine HCl (Tizanidine 4 Mg Tablet) 4 mg PO HS [facility] Stop: 12/03/25 21:59 Last Admin: 12/03/24 21:20 Dose: 4 mg Topiramate (Topiramate 100 Mg Tablet) 100 mg PO QAM [facility] Stop: 12/04/25 08:59 Last Admin: 12/04/24 08:40 Dose: 100 mg Topiramate (Topiramate 100 Mg Tablet) 200 mg PO HS [facility] Stop: 12/03/25 21:59 Last Admin: 12/03/24 21:21 Dose: 200 mg Exam Physical Exam Vital Signs: Temp Pulse Resp BP Pulse Ox O2 Del Method 98.3 F 83 18 143/88 H 98 Room Air 12/04/24 08:43 12/04/24 08:43 12/04/24 08:43 12/04/24 08:43 12/04/24 08:43 12/04/24 08:43 Narrative: General: Awake, alert, seated upright slouched on side of bed deconditioned, uncomfortably maintaining posture and moaning in pain HEENT: head atraumatic, normocephalic, moist mucous membranes Neck: No JVD, supple no masses, no tracheal deviation CVS: Audible S1/S2, regular rate and rhythm, no murmurs or gallops Respiratory: Somewhat diminished or difficult but clear without wheezing or crackles heard and withsymmetric expansion GI: soft, nondistended, nontender, positive bowel sounds with no organomegaly Extremity: Overt asymmetry of quadricep muscle, reduced/atrophy of right compared to left with reduced skeletal mass lower extremities overall. Knee joint hypertrophy/enlarged plateaus. Minimal ROM markedly limited by pain. Neuro: AOx3, CN II-VII intact. No tremor, sensation intact Skin: dry, intact no rashes or lesions Results - Phys. Rehab Labs Labs: Laboratory Results - last 24 hr 12/04/24 03:41 Corrected WBC 9.1 Uncorrected WBC Count 9.1 RBC 3.31 L Hgb 11.3 L Hct 32.8 L MCV 99.2 MCH 34.3 MCHC 34.6 RDW 13.7 Plt Count 179 MPV 7.7 Neut % (Auto) 67.2 Lymph % (Auto) 20.4 [place] % (Auto) 11.8 Eos % (Auto) 0.3 Baso % (Auto) 0.3 Nucleat RBC Rel Count 0.1 Neut # (Auto) 6.1 Lymph # (Auto) 1.9 [place] # (Auto) 1.1 H Eos # (Auto) 0.0 Baso # (Auto) 0.0 PHA Creatinine Clear 107.15 Sodium 131 L Potassium 3.8 Chloride 100 Carbon Dioxide 21.8 Anion Gap 13.0 BUN 13 Creatinine 0.93 Est GFR (CKD-EPI) > 60.0 Glucose 95 Calcium 7.8 L Total Bilirubin 0.7 AST 21 ALT 37 Alkaline Phosphatase 92 Total Protein 5.1 L Albumin 3.2 L Globulin 1.9 Albumin/Globulin Ratio 1.7 Prealbumin 13.4 L Additional Results Results Comment: I reviewed clinical lab tests, radiology reports and obtained and summated medical records and haveordered follow up lab tests and imaging studies as needed for rehabilitation care. Individualized Plan of Care Individualized Plan of Care Plan of Care: Individualized Overall Plan of Care: Admit Date/Time: 12/03/24 Expected LOS: 12 Days Expected Discharge Destination: Home Rehabilitation [facility]: 8.11 Primary Diagnosis: as above Patient?s/Family?s anticipated outcomes/personal goals: To have patient become more independent and to return home. Medical/ Functional Prognosis: Good Anticipated Functional Outcomes/Goals and Interventions: -Therapy Functional Outcome/Goal: Mobility/Locomotion: Patient likely to be independent with ambulation with assistive device. Anticipated interventions: Physician management, PT, OT, Dietitian, Rehab Nursing - Therapy Functional Outcome/Goal: Self Care: Patient likely to be functionally independent for activities of daily living using assistive / adaptive equipment as needed. Anticipated interventions: Physician management, PT, OT, Dietitian, Rehab Nursing - Therapy Functional Outcome/Goal: Bladder/Bowel Management: Patient likely to be independent with bladder care and independent with bowel care. Anticipated interventions: Physician management, PT, OT, Dietitian, Rehab Nursing -Therapy Functional Outcome/Goal: Communication/Cognition: Patient will be able to communicate fully and be safe cognitively. Anticipated interventions: Physician management, PT, OT, Dietitian, Rehab Nursing -Therapy Functional Outcome/Goal: Patient will be independent for bed mobility and transfers Anticipated interventions: Physician management, PT, OT, Dietitian, Rehab Nursing -Therapy Functional Outcome/Goal: Patient will improve endurance to be able to tolerate all daily self care activities and avocational activities. Anticipated interventions: Physician management, PT, OT, Nutrition, Rehab Nursing -Therapy Functional Outcome/Goal: Patient will understand and assimilate / integrate education regarding management of their medical conditions to maintainhealth and wellbeing. Anticipated interventions: Physician management, PT, OT, Dietitian, Rehab Nursing Required Therapy PT: 1.5 hour per day at least 5 days per week with additional therapy on as needed basis. Comments: PT to improve pt's strength, endurance, bed mobility, transfers (sit- stand), standing balance, gait quality on level surfaces and stairs, coordination and functional ADL skills. Will also work to improve pt's safety awareness during transfers and ambulation. OT: 1.5 hour per day at least 5 days per week with additional therapy on as needed basis. Comments: OT for basic ADL re-training (bathing, dressing, toileting, continence, grooming, feeding, transferring), to increase activity tolerance andfunctional mobility and to evaluate for adaptive and assistive devices. Will work to improve pt's endurance and educate pt on fall prevention and energy conservation techniques-pacing strategies and proper breathing techniques duringfunctional tasks. Other: Nutrition, Rehab nursing, Wound, P&O RATIONALE FOR IRF ADMISSION: Patient has both medical and functional complexities that require 24 hour daily monitoring and intervention from Drywall Installer as well as other consulting physicians including internal medicine as well as 24 hour daily soyfreeze operator nursing - for medical safe / optimal manageme nt. Patient requires interdisciplinary therapy team rehabilitation care including OT, PT, SW, RehabNursing, requires and can tolerate at least 3 hoursof daily OT and PT therapy at least 5 days weekly. The following medical conditions significantly impact the rehabilitation process and are being addressed daily and can not be managed at home or in a lesser intense medical setting: Refer to above problem oriented plan of care Assessment/Plan (1) S/P total hip arthroplasty: (2) Seizure disorder: (3) Alcohol dependence: (4) Hypothyroidism: (5) BPH (benign prostatic hyperplasia): (6) HTN (hypertension): (7) Avascular necrosis: (8) Closed right hip fracture: (9) Impaired mobility and activities of daily living: Plan #Mr. Trejo is a 59 year old male with a past medical history of right hip AVN, hypertension, seizure disorder, BPH, loop recorder placed 08/2024, GERD, asthma overlap COPD and hypothyroidism who was admitted to the inpatient rehab unit sp posterior approach right total hip arthroplasty with preop course complicated by subcapital femoral neck fracture AVN. -Postoperative course has been uncomplicated and medically stable. -PT/OT eval: Two-person assist for all mobility, max VC for COR[place] precautions. -Preoperative course with medical complexity may indicate a protracted course ofrehabilitation. Seizure disorder?continue Topamax 100 g p.o. daily, 200 mg p.o. nightly Alcohol dependence?Reports no cravings. monitor vitals, symptoms daily. Asthma and COPD?albuterol as needed for shortness of breath, start symbicort maintenance inhaler Hypertension?metoprolol 50 mg twice daily Hyperthyroidism?250 mcg daily Postoperative Pain?tylenol, oxycodone every 4 hours as needed Muscle Spasm?tizanidine 4 mg nightly BPH?tamsulosin 0.4 mg daily Constipation, chronic?docusate as needed daily Continue home meds?aspirin Recommend he start at least 3 hours daily, at least 5 days/week, of physical andoccupational therapy, with additional therapy as needed to address functional impairment related to above documented medical conditions and facilitate community discharge home in a timely fashion. Patient has medical complexity that cannot be best managed at a lower level of care and requires at least 3 times weekly encounters with group supervisor yard for medical management and for plan of care review / changes. Patient was personally seen by me, Dr. Jimenez, on the day of encounter, reviewed the history and the relevant portions of the chart, including current orders, allied health and technical sales consultant notes, labs/imaging and performed ulloa elements of exam and I formulated the plan of care and facilitated the medical decision making and confirmed the resident physician note, as above I completed a substantive portion of this encounter, the medical decision makingportion of this note in its entirety, including Allied health note review, nursing note review, technical sales consultant note review,discussion with nursing and case management, and more than 50% of my time was spent on counseling and coordination of care, time spent 40 minutes Documented By: Paco Jimenez MD [id number] Signed By: 12/04/24 1452 12/04/24 1300 [facility]05-21-2025 Evaluation note* Diagnosis Onset Date Resolution Status Admit Date Alcohol dependence acute December 032024 4:33pm BPH (benign prostatic hyperplasia) acute December 03, 2024 4 :33pm CAD (coronary artery disease) acute December 03, 2024 4:33pm COPD (chronic obstructive pulmonary disease) acute December 03 4:33pm Hyperlipidemia acute December 03, 2024 4:33pm Hypothyroidism acute December 03, 2024 4:33pm Avascular necrosis resolved December 032024 4:33pm Closed right hip fracture resolved December 03, 2024 4:33pm HTN (hypertension) resolved December 032024 4:33pm Impaired mobility and activities of daily living resolved November 142024 4:33pm S/P total hip arthroplasty resolved December 03, 2024 4:33pm Seizure disorder resolved November 4:33pm 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 acute December 22, 2024 3 :59pm Avascular necrosis of left femur acute December 22, 2024 3 :59pm Closed subcapital fracture o f right femur acute December 22, 2024 3 :59pm Right shoulder pain acute December 22, 2024 3:59pm Status post total hip replacement, right noneactive December 22 3:59pm 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 acute January 12, 2025 10:57am Avascular necrosis of left femur acute January 12, 2025 10:57am Closed subcapital fracture o f right femur acute January 12, 2025 10:57am Right shoulder pain acute January 12, 2025 10:57am Status post total hip replacement, right noneactive January 12 10:57am 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 acute February 11, 2025 11:59am Avascular necrosis of left femur acute February 11, 2025 11:59am Closed subcapital fracture o f right femur acute February 11, 2025 11:59am Right shoulder pain acute February 11, 2025 11:59am Status post total hip replacement, right noneactive February 11 11:59am Cellulitis of right lower extremity acute February 24 10:17am Stasis dermatitis acute February 24, 2025 10:17am 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 acute March 04 11:08am Avascular necrosis of left femur acute March 04 11:08am Closed subcapital fracture o f right femur acute March 04 11:08am Right shoulder pain acute Aug2024 11:08am Status post total hip replacement, right noneactive March 04, 2025 11:08am [facility] Work Phone: 1([phone]) 734-507405-19-2025 Evaluation note* Diagnosis Onset Date Resolution Status Admit Date Alcohol dependence acute December 012024 8:05pm BPH (benign prostatic hyperplasia) acute December 01, 2024 8 :05pm Hypothyroidism acute December 01, 2024 8:05pm Avascular necrosis resolved December 012024 8:05pm Closed right hip fracture resolved December 01, 2024 8:05pm Femoral neck fracture resolved December 01, 2024 8:05pm HTN (hypertension) resolved December 012024 8:05pm S/P total hip arthroplasty resolved December 01, 2024 8:05pm Seizure disorder resolved November 8:05pm Alcohol dependence acute December 032024 4:33pm BPH (benign prostatic hyperplasia) acute December 03, 2024 4 :33pm CAD (coronary artery disease) acute December 03, 2024 4:33pm COPD (chronic obstructive pulmonary disease) acute December 03 4:33pm Hyperlipidemia acute December 03, 2024 4:33pm Hypothyroidism acute December 03, 2024 4:33pm Impaired mobility and activi ties of daily living acute December 03, 2024 4 :33pm Avascular necrosis resolved December 032024 4:33pm Closed right hip fracture resolved December 03, 2024 4:33pm HTN (hypertension) resolved December 032024 4:33pm S/P total hip arthroplasty resolved December 03, 2024 4:33pm Seizure disorder resolved November 4:33pm [facility] Work Phone: 1(724) 404-734705-19-2025 Evaluation note* Diagnosis Onset Date Resolution Status Admit Date Alcohol dependence acute December 012024 8:05pm BPH (benign prostatic hyperplasia) acute December 01, 2024 8 :05pm Hypothyroidism acute December 01, 2024 8:05pm Avascular necrosis resolved December 012024 8:05pm Closed right hip fracture resolved December 01, 2024 8:05pm Femoral neck fracture resolved December 01, 2024 8:05pm HTN (hypertension) resolved December 012024 8:05pm S/P total hip arthroplasty resolved December 01, 2024 8:05pm Seizure disorder resolved November 8:05pm Alcohol dependence acute December 032024 4:33pm BPH (benign prostatic hyperplasia) acute December 03, 2024 4 :33pm CAD (coronary artery disease) acute December 03, 2024 4:33pm COPD (chronic obstructive pulmonary disease) acute December 03 4:33pm Hyperlipidemia acute December 03, 2024 4:33pm Hypothyroidism acute December 03, 2024 4:33pm Avascular necrosis resolved December 032024 4:33pm Closed right hip fracture resolved December 03, 2024 4:33pm HTN (hypertension) resolved December 032024 4:33pm Impaired mobility and activities of daily living resolved November 142024 4:33pm S/P total hip arthroplasty resolved December 03, 2024 4:33pm Seizure disorder resolved November 4:33pm 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 acute December 22, 2024 3 :59pm Avascular necrosis of left femur acute December 22, 2024 3 :59pm Closed subcapital fracture o f right femur acute December 22, 2024 3 :59pm Status post total hip replacement, right noneactive December 22 3:59pm [facility] Work Phone: 1(340) 138-161105-19-2025 Evaluation note* Diagnosis Onset Date Resolution Status Admit Date Alcohol dependence acute December 012024 8:05pm BPH (benign prostatic hyperplasia) acute December 01, 2024 8 :05pm Hypothyroidism acute December 01, 2024 8:05pm Avascular necrosis resolved December 012024 8:05pm Closed right hip fracture resolved December 01, 2024 8:05pm Femoral neck fracture resolved December 01, 2024 8:05pm HTN (hypertension) resolved December 012024 8:05pm S/P total hip arthroplasty resolved December 01, 2024 8:05pm Seizure disorder resolved November 8:05pm Alcohol dependence acute December 032024 4:33pm BPH (benign prostatic hyperplasia) acute December 03, 2024 4 :33pm CAD (coronary artery disease) acute December 03, 2024 4:33pm COPD (chronic obstructive pulmonary disease) acute December 03 4:33pm Hyperlipidemia acute December 03, 2024 4:33pm Hypothyroidism acute December 03, 2024 4:33pm Avascular necrosis resolved December 032024 4:33pm Closed right hip fracture resolved December 03, 2024 4:33pm HTN (hypertension) resolved December 032024 4:33pm Impaired mobility and activities of daily living resolved November 142024 4:33pm S/P total hip arthroplasty resolved December 03, 2024 4:33pm Seizure disorder resolved November 4:33pm 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 acute December 22, 2024 3 :59pm Avascular necrosis of left femur acute December 22, 2024 3 :59pm Closed subcapital fracture o f right femur acute December 22, 2024 3 :59pm Right shoulder pain acute December 22, 2024 3:59pm Status post total hip replacement, right noneactive December 22 3:59pm [facility] Work Phone: 1(857) 789-146105-19-2025 Evaluation note* Diagnosis Onset Date Resolution Status Admit Date Alcohol dependence acute December 012024 8:05pm BPH (benign prostatic hyperplasia) acute December 01, 2024 8 :05pm Hypothyroidism acute December 01, 2024 8:05pm Avascular necrosis resolved December 012024 8:05pm Closed right hip fracture resolved December 01, 2024 8:05pm Femoral neck fracture resolved December 01, 2024 8:05pm HTN (hypertension) resolved December 012024 8:05pm S/P total hip arthroplasty resolved December 01, 2024 8:05pm Seizure disorder resolved November 8:05pm Alcohol dependence acute December 032024 4:33pm BPH (benign prostatic hyperplasia) acute December 03, 2024 4 :33pm CAD (coronary artery disease) acute December 03, 2024 4:33pm COPD (chronic obstructive pulmonary disease) acute December 03 4:33pm Hyperlipidemia acute December 03, 2024 4:33pm Hypothyroidism acute December 03, 2024 4:33pm Avascular necrosis resolved December 032024 4:33pm Closed right hip fracture resolved December 03, 2024 4:33pm HTN (hypertension) resolved December 032024 4:33pm Impaired mobility and activities of daily living resolved November 142024 4:33pm S/P total hip arthroplasty resolved December 03, 2024 4:33pm Seizure disorder resolved November 4:33pm 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 acute December 22, 2024 3 :59pm Avascular necrosis of left femur acute December 22, 2024 3 :59pm Closed subcapital fracture o f right femur acute December 22, 2024 3 :59pm Right shoulder pain acute December 22, 2024 3:59pm Status post total hip replacement, right noneactive December 22 3:59pm 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 acute January 12, 2025 10:57am Avascular necrosis of left femur acute January 12, 2025 10:57am Closed subcapital fracture o f right femur acute January 12, 2025 10:57am Right shoulder pain acute January 12, 2025 10:57am Status post total hip replacement, right noneactive January 12 10:57am [facility] Work Phone: 1(164) 156-608405-19-2025 Evaluation note* Diagnosis Onset Date Resolution Status Admit Date Alcohol dependence acute December 012024 8:05pm BPH (benign prostatic hyperplasia) acute December 01, 2024 8 :05pm Hypothyroidism acute December 01, 2024 8:05pm Avascular necrosis resolved December 012024 8:05pm Closed right hip fracture resolved December 01, 2024 8:05pm Femoral neck fracture resolved December 01, 2024 8:05pm HTN (hypertension) resolved December 012024 8:05pm S/P total hip arthroplasty resolved December 01, 2024 8:05pm Seizure disorder resolved November 8:05pm Alcohol dependence acute December 032024 4:33pm BPH (benign prostatic hyperplasia) acute December 03, 2024 4 :33pm CAD (coronary artery disease) acute December 03, 2024 4:33pm COPD (chronic obstructive pulmonary disease) acute December 03 4:33pm Hyperlipidemia acute December 03, 2024 4:33pm Hypothyroidism acute December 03, 2024 4:33pm Avascular necrosis resolved December 032024 4:33pm Closed right hip fracture resolved December 03, 2024 4:33pm HTN (hypertension) resolved December 032024 4:33pm Impaired mobility and activities of daily living resolved November 142024 4:33pm S/P total hip arthroplasty resolved December 03, 2024 4:33pm Seizure disorder resolved November 4:33pm 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 acute December 22, 2024 3 :59pm Avascular necrosis of left femur acute December 22, 2024 3 :59pm Closed subcapital fracture o f right femur acute December 22, 2024 3 :59pm Right shoulder pain acute December 22, 2024 3:59pm Status post total hip replacement, right noneactive December 22 3:59pm 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 acute January 12, 2025 10:57am Avascular necrosis of left femur acute January 12, 2025 10:57am Closed subcapital fracture o f right femur acute January 12, 2025 10:57am Right shoulder pain acute January 12, 2025 10:57am Status post total hip replacement, right noneactive January 12 10:57am 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 acute February 11, 2025 11:59am Avascular necrosis of left femur acute February 11, 2025 11:59am Closed subcapital fracture o f right femur acute February 11, 2025 11:59am Right shoulder pain acute February 11, 2025 11:59am Status post total hip replacement, right noneactive February 11 11:59am [facility] Work Phone: 1(139) 665-796205-19-2025 Evaluation note* Diagnosis Onset Date Resolution Status Admit Date Alcohol dependence acute December 012024 8:05pm BPH (benign prostatic hyperplasia) acute December 01, 2024 8 :05pm Hypothyroidism acute December 01, 2024 8:05pm Avascular necrosis resolved December 012024 8:05pm Closed right hip fracture resolved December 01, 2024 8:05pm Femoral neck fracture resolved December 01, 2024 8:05pm HTN (hypertension) resolved December 012024 8:05pm S/P total hip arthroplasty resolved December 01, 2024 8:05pm Seizure disorder resolved November 8:05pm Alcohol dependence acute December 032024 4:33pm BPH (benign prostatic hyperplasia) acute December 03, 2024 4 :33pm CAD (coronary artery disease) acute December 03, 2024 4:33pm COPD (chronic obstructive pulmonary disease) acute December 03 4:33pm Hyperlipidemia acute December 03, 2024 4:33pm Hypothyroidism acute December 03, 2024 4:33pm Avascular necrosis resolved December 032024 4:33pm Closed right hip fracture resolved December 03, 2024 4:33pm HTN (hypertension) resolved December 032024 4:33pm Impaired mobility and activities of daily living resolved November 142024 4:33pm S/P total hip arthroplasty resolved December 03, 2024 4:33pm Seizure disorder resolved November 4:33pm 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 acute December 22, 2024 3 :59pm Avascular necrosis of left femur acute December 22, 2024 3 :59pm Closed subcapital fracture o f right femur acute December 22, 2024 3 :59pm Right shoulder pain acute December 22, 2024 3:59pm Status post total hip replacement, right noneactive December 22 3:59pm 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 acute January 12, 2025 10:57am Avascular necrosis of left femur acute January 12, 2025 10:57am Closed subcapital fracture o f right femur acute January 12, 2025 10:57am Right shoulder pain acute January 12, 2025 10:57am Status post total hip replacement, right noneactive January 12 10:57am 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 acute February 11, 2025 11:59am Avascular necrosis of left femur acute February 11, 2025 11:59am Closed subcapital fracture o f right femur acute February 11, 2025 11:59am Right shoulder pain acute February 11, 2025 11:59am Status post total hip replacement, right noneactive February 11 11:59am Cellulitis of right lower extremity acute [address], 202 5 10:17am Stasis dermatitis acute February 24, 2025 10:17am [facility] Work Phone: [phone]) 758-690603-19-2025 NoteUT Cardiology - [facility] Subjective Rehan Trejo is a 59 y.o. year old male [...] Adrenal insufficiency NSTEMI (non-ST elevated myocardial infarction) ([facility]) Alcoholism ([facility]) Atypical chest pain COVID-19 Diverticulitis Dysphagia Dyspnea Edema Epigastric pain Groin strain Lumbar radicular pain Other diseases of lung, not elsewhere classified Other instability, left ankle Other specified congenital deformities of feet Pain in left ankle and joints of left foot Pneumonia Primary osteoarthritis of left hip Sprain of left ankle Syncope and collapse Benign essential hypertension Osteoarthritis of knee Recurrent seizures ([facility]) HPI Patient with history of syncope [...] Diagnosis Date COPD (chronic obstructive pulmonary disease) ([facility]) Hyperlipidemia Hypertension Seizures ([facility]) Syncope No past surgical history on file. [...] Drug use: Never Allergies Allergies Allergen Reactions [place] Anaphylaxis Penicillins Angioedema Medications Current Outpatient Medications: [...] 4 mg by saloni (more content not included)...[facility]09-13-2024 NoteIntermittent sharp chest pain while at rest and watching TV, with recent ischemic testing with stress test and echocardiogram no acute concerns or need for any further invasive heart catheter cardiac procedures. Discussed with patient to discuss with his PCP for other etiologies of his chest pain including possible musculoskeletal, pulmonary, [facility] NoteDenies any episodes of syncope or collapse since last visit no seizure activity states overall he is doing well.[facility]09-13-2024 NoteEvent monitor reviewed no concerning arrhythmias, heart block or pauses [facility]09-13-2024 NoteLipid abnormalities are well- controlled with Lipitor 10 mg daily Liver function normal No concerning symptomsUnLicking [facility]09-13-2024 Note Hypertension is currently well-controlled 132/83 Denies any lightheadedness, dizziness, syncope. Continue metoprolol and isosorbide.[facility]09-13-2024 NoteUTP CARDIOLOGY PROGRESS NOTE HPI: Rehan Trejo is a 59 y.o. male here for [...] Arrhythmias 0 TACHY 0 AF 7 SYMPTOM [id number] <03-22-2024 10:00- pt was in Sinus rhythm Review of Systems Constitutional: Negative. Respiratory: Negative. Cardiovascular: Positive for chest pain. Neurological: Negative. All other systems reviewed and are negative. Previous HPI per Dr Wills Reason for visit: hospital follow up, syncope 10/15/23. Pt here for Loop implant 07/17/22: Here for hospital follow up Was admited again for syncope at [facility] 05/27 Had stress test which was negative he does get some chest pain at times when his syncopal episodes do occur and this could be related to vasovagal response as patient states he does feel like he sometimes bears down in response to the pain 05/18/23 HPI: Rehan Trejo is a 58 y.o. year old with past medical history of hypertension, migraine headaches, seizure, neuropathy, history of PFO He was just seen at [facility] for syncope / CP, he was suppose [...] Former BSA 2.29 m??? Allergies Allergen Reactions [place] Anaphylaxis Penicillins Angioedema Medications: Current Outpatient Medications [...] Take 100 mg by mouth at bedtime. ecjaiadwbnw-[id number] (Trelegy Ellipta) 100-62.5-25 mcg blister with device [...] tablet 0 No curre (more content not included)...[facility] 03-28-2024 NotePt is here for follow up from a loop insertion. Pt denies chest pain, palpatation, dizziness. Pt says later in the day he gets chest pains after sitting awihile. Review of Systems Constitutional: Positive for malaise/fatigue. Cardiovascular: Positive for dyspnea on exertion and syncope. Respiratory: Positive for shortness of breath (when walking). All other systems reviewed and are negative.[facility] 11-27-2022 NotePROCEDURE: XR ANKLE LT 2V HISTORY: Unspecified fall , left ankle pain COMPARISON: None. FINDINGS: BONES:No fracture, acute abnormality, or significant arthropathy. SOFT TISSUES:Mild anterior lateral soft tissue swelling. EFFUSION:None visible. OTHER: Negative. IMPRESSION: 1. No acute bone abnormality. Electronically authenticated by: SHEN SOSA Date: 2022-11-27 11:27[facility]04-11-2023 NotePROCEDURE: XR HIP LT 2 3V W PELVIS HISTORY: Idiopathic osteoarthritis ; acute left hip pain after falling COMPARISON: None. FINDINGS: BONES:No fracture, acute abnormality, or significant arthropathy. SOFT TISSUES:No visible soft tissue swelling. EFFUSION:None visible. OTHER: Negative. IMPRESSION: 1. No acute bone abnormality or significant degenerative joint disease. Electronically authenticated by: SHEN SOSA Date: 2022-10-24 09:51[facility] Diagnosis Rash and other nonspecific skin eruption- Primary documented in this encounter [facility] HealthcareEvaluation note* Diagnosis Rash and other nonspecific skin eruption documented in this encounter [facility] Summary Purpose Family History No Family History Records Found Relationship Condition Age at Onset Recorded Date/T araseli father Diabetes mellitus Unknown mother Malignant neoplasm Unknown Relationship Condition Age at Onset Recorded Date/T araseli father Diabetes mellitus Unknown Malignant neoplasm Unknown Multiple sclerosis Unknown mother Malignant neoplasm Unknown Advance Directives No Advanced Directives Records Found Advance Directive Response Recorded Date/ Time Advance Directives No December 01 6:14pm Chief Complaint and Reason for Visit Chief Complaint Admit Date RT HIP FRACTURE December 01, 2024 8:05p m RT HIP FRACTURE December 01, 2024 9:21p m RT HIP FRACTURE December 03, 2024 1:11p m R Hip Fx S/P [place] December 03, 2024 4:33p m R Hip Fx S/P [place] December 04, 2024 11:49 am R Hip Fx S/P [place] December 12, 2024 1:15p m Reason for Visit Admit Date Alcohol dependence December 01, 2024 8:05p m BPH (benign prostatic hyperplasia) November 132024 8:05pm Hypothyroidism December 01, 2024 8:05p m Avascular necrosis December 01, 2024 8:05p m Closed right hip fracture December 01, 2024 8:05pm Femoral neck fracture December 01, 2024 8:0 5pm HTN (hypertension) December 01, 2024 8:05p m S/P total hip arthroplasty December 01 8:05pm Seizure disorder December 01, 2024 8:05p m Alcohol dependence December 03, 2024 4:33p m BPH (benign prostatic hyperplasia) November 142024 4:33pm CAD (coronary artery disease) December 03, 2024 4:33pm COPD (chronic obstructive pulmonary dise ase) December 03, 2024 4:33pm Hyperlipidemia December 03, 2024 4:33p m Hypothyroidism December 03, 2024 4:33p m Impaired mobility and activities of carmen y living December 03, 2024 4:33pm Avascular necrosis December 03, 2024 4:33p m Closed right hip fracture December 03, 2024 4:33pm HTN (hypertension) December 03, 2024 4:33p m S/P total hip arthroplasty December 03 4:33pm Seizure disorder December 03, 2024 4:33p m Chief Complaint Admit Date RT HIP FRACTURE December 01, 2024 8:05p m RT HIP FRACTURE December 01, 2024 9:21p m RT HIP FRACTURE December 03, 2024 1:11p m R Hip Fx S/P [place] December 03, 2024 4:33p m R Hip Fx S/P [place] December 04, 2024 11:49 am R Hip Fx S/P [place] December 12, 2024 1:15p m HOSP F/U RT [place] December 22, 2024 3:59p m M25.511 - Pain in right shoulder December 4:43pm Reason for Visit Admit Date Alcohol dependence December 01, 2024 8:05p m BPH (benign prostatic hyperplasia) November 132024 8:05pm Hypothyroidism December 01, 2024 8:05p m Avascular necrosis December 01, 2024 8:05p m Closed right hip fracture December 01, 2024 8:05pm Femoral neck fracture December 01, 2024 8:0 5pm HTN (hypertension) December 01, 2024 8:05p m S/P total hip arthroplasty December 01 8:05pm Seizure disorder December 01, 2024 8:05p m Alcohol dependence December 03, 2024 4:33p m BPH (benign prostatic hyperplasia) November 142024 4:33pm CAD (coronary artery disease) December 03, 2024 4:33pm COPD (chronic obstructive pulmonary dise ase) December 03, 2024 4:33pm Hyperlipidemia December 03, 2024 4:33p m Hypothyroidism December 03, 2024 4:33p m Avascular necrosis December 03, 2024 4:33p m Closed right hip fracture December 03, 2024 4:33pm HTN (hypertension) December 03, 2024 4:33p m Impaired mobility and activities of carmen y living December 03, 2024 4:33pm S/P total hip arthroplasty December 03 4:33pm Seizure disorder December 03, 2024 4:33p m Avascular necrosis of bone of right hip December 22, 2024 3:59pm Avascular necrosis of left femur December 3:59pm Closed subcapital fracture of right femu r December 22, 2024 3:59pm Status post total hip replacement, right December 22, 2024 3:59pm Reason for Visit Admit Date Alcohol dependence December 01, 2024 8:05p m BPH (benign prostatic hyperplasia) November 132024 8:05pm Hypothyroidism December 01, 2024 8:05p m Avascular necrosis December 01, 2024 8:05p m Closed right hip fracture December 01, 2024 8:05pm Femoral neck fracture December 01, 2024 8:0 5pm HTN (hypertension) December 01, 2024 8:05p m S/P total hip arthroplasty December 01 8:05pm Seizure disorder December 01, 2024 8:05p m Alcohol dependence December 03, 2024 4:33p m BPH (benign prostatic hyperplasia) November 142024 4:33pm CAD (coronary artery disease) December 03, 2024 4:33pm COPD (chronic obstructive pulmonary dise ase) December 03, 2024 4:33pm Hyperlipidemia December 03, 2024 4:33p m Hypothyroidism December 03, 2024 4:33p m Avascular necrosis December 03, 2024 4:33p m Closed right hip fracture December 03, 2024 4:33pm HTN (hypertension) December 03, 2024 4:33p m Impaired mobility and activities of carmen y living December 03, 2024 4:33pm S/P total hip arthroplasty December 03 4:33pm Seizure disorder December 03, 2024 4:33p m Avascular necrosis of bone of right hip December 22, 2024 3:59pm Avascular necrosis of left femur December 3:59pm Closed subcapital fracture of right femu r December 22, 2024 3:59pm Right shoulder pain December 22, 2024 3:59p m Status post total hip replacement, right December 22, 2024 3:59pm Chief Complaint Admit Date RT HIP FRACTURE December 01, 2024 8:05p m RT HIP FRACTURE December 01, 2024 9:21p m RT HIP FRACTURE December 03, 2024 1:11p m R Hip Fx S/P [place] December 03, 2024 4:33p m R Hip Fx S/P [place] December 04, 2024 11:49 am R Hip Fx S/P [place] December 12, 2024 1:15p m HOSP F/U RT [place] December 22, 2024 3:59p m M25.511 - Pain in right shoulder December 4:43pm 3 WEEKS January 12, 2025 10:5 7am Reason for Visit Admit Date Alcohol dependence December 01, 2024 8:05p m BPH (benign prostatic hyperplasia) November 132024 8:05pm Hypothyroidism December 01, 2024 8:05p m Avascular necrosis December 01, 2024 8:05p m Closed right hip fracture December 01, 2024 8:05pm Femoral neck fracture December 01, 2024 8:0 5pm HTN (hypertension) December 01, 2024 8:05p m S/P total hip arthroplasty December 01 8:05pm Seizure disorder December 01, 2024 8:05p m Alcohol dependence December 03, 2024 4:33p m BPH (benign prostatic hyperplasia) November 142024 4:33pm CAD (coronary artery disease) December 03, 2024 4:33pm COPD (chronic obstructive pulmonary dise ase) December 03, 2024 4:33pm Hyperlipidemia December 03, 2024 4:33p m Hypothyroidism December 03, 2024 4:33p m Avascular necrosis December 03, 2024 4:33p m Closed right hip fracture December 03, 2024 4:33pm HTN (hypertension) December 03, 2024 4:33p m Impaired mobility and activities of carmen y living December 03, 2024 4:33pm S/P total hip arthroplasty December 03 4:33pm Seizure disorder December 03, 2024 4:33p m Avascular necrosis of bone of right hip December 22, 2024 3:59pm Avascular necrosis of left femur December 3:59pm Closed subcapital fracture of right femu r December 22, 2024 3:59pm Right shoulder pain December 22, 2024 3:59p m Status post total hip replacement, right December 22, 2024 3:59pm Avascular necrosis of bone of right hip January 12, 2025 10:57am Avascular necrosis of left femur January 122024 10:57am Closed subcapital fracture of right femu r January 12, 2025 10:57am Right shoulder pain January 12, 2025 10:5 7am Status post total hip replacement, right January 12, 2025 10:57am Chief Complaint Admit Date RT HIP FRACTURE December 01, 2024 8:05p m RT HIP FRACTURE December 01, 2024 9:21p m RT HIP FRACTURE December 03, 2024 1:11p m R Hip Fx S/P [place] December 03, 2024 4:33p m R Hip Fx S/P [place] December 04, 2024 11:49 am R Hip Fx S/P [place] December 12, 2024 1:15p m HOSP F/U RT [place] December 22, 2024 3:59p m M25.511 - Pain in right shoulder December 4:43pm 3 WEEKS January 12, 2025 10:5 7am Hip pain February 06, 2025 11:3 2am Chief Complaint Admit Date RT HIP FRACTURE December 01, 2024 8:05p m RT HIP FRACTURE December 01, 2024 9:21p m RT HIP FRACTURE December 03, 2024 1:11p m R Hip Fx S/P [place] December 03, 2024 4:33p m R Hip Fx S/P [place] December 04, 2024 11:49 am R Hip Fx S/P [place] December 12, 2024 1:15p m HOSP F/U RT [place] December 22, 2024 3:59p m M25.511 - Pain in right shoulder December 4:43pm 3 WEEKS January 12, 2025 10:5 7am Hip pain February 06, 2025 11:3 2am H & P LEFT TOTAL HIP ARTHROPLASTY February 11, 2025 11:59am Reason for Visit Admit Date Alcohol dependence December 01, 2024 8:05p m BPH (benign prostatic hyperplasia) November 132024 8:05pm Hypothyroidism December 01, 2024 8:05p m Avascular necrosis December 01, 2024 8:05p m Closed right hip fracture December 01, 2024 8:05pm Femoral neck fracture December 01, 2024 8:0 5pm HTN (hypertension) December 01, 2024 8:05p m S/P total hip arthroplasty December 01 8:05pm Seizure disorder December 01, 2024 8:05p m Alcohol dependence December 03, 2024 4:33p m BPH (benign prostatic hyperplasia) November 142024 4:33pm CAD (coronary artery disease) December 03, 2024 4:33pm COPD (chronic obstructive pulmonary dise ase) December 03, 2024 4:33pm Hyperlipidemia December 03, 2024 4:33p m Hypothyroidism December 03, 2024 4:33p m Avascular necrosis December 03, 2024 4:33p m Closed right hip fracture December 03, 2024 4:33pm HTN (hypertension) December 03, 2024 4:33p m Impaired mobility and activities of carmen y living December 03, 2024 4:33pm S/P total hip arthroplasty December 03 4:33pm Seizure disorder December 03, 2024 4:33p m Avascular necrosis of bone of right hip December 22, 2024 3:59pm Avascular necrosis of left femur December 3:59pm Closed subcapital fracture of right femu r December 22, 2024 3:59pm Right shoulder pain December 22, 2024 3:59p m Status post total hip replacement, right December 22, 2024 3:59pm Avascular necrosis of bone of right hip January 12, 2025 10:57am Avascular necrosis of left femur January 122024 10:57am Closed subcapital fracture of right femu r January 12, 2025 10:57am Right shoulder pain January 12, 2025 10:5 7am Status post total hip replacement, right January 12, 2025 10:57am Avascular necrosis of bone of right hip February 11, 2025 11:59am Avascular necrosis of left femur February 112024 11:59am Closed subcapital fracture of right femu r February 11, 2025 11:59am Right shoulder pain February 11, 2025 11:5 9am Status post total hip replacement, right February 11, 2025 11:59am Chief Complaint Admit Date RT HIP FRACTURE December 01, 2024 8:05p m RT HIP FRACTURE December 01, 2024 9:21p m RT HIP FRACTURE December 03, 2024 1:11p m R Hip Fx S/P [place] December 03, 2024 4:33p m R Hip Fx S/P [place] December 04, 2024 11:49 am R Hip Fx S/P [place] December 12, 2024 1:15p m HOSP F/U RT [place] December 22, 2024 3:59p m M25.511 - Pain in right shoulder December 4:43pm 3 WEEKS January 12, 2025 10:5 7am Hip pain February 06, 2025 11:3 2am H & P LEFT TOTAL HIP ARTHROPLASTY February 11, 2025 11:59am Hip pain February 24, 2025 7: 12am Hip pain February 24, 2025 10 :17am Reason for Visit Admit Date Alcohol dependence December 01, 2024 8:05p m BPH (benign prostatic hyperplasia) November 132024 8:05pm Hypothyroidism December 01, 2024 8:05p m Avascular necrosis December 01, 2024 8:05p m Closed right hip fracture December 01, 2024 8:05pm Femoral neck fracture December 01, 2024 8:0 5pm HTN (hypertension) December 01, 2024 8:05p m S/P total hip arthroplasty December 01 8:05pm Seizure disorder December 01, 2024 8:05p m Alcohol dependence December 03, 2024 4:33p m BPH (benign prostatic hyperplasia) November 142024 4:33pm CAD (coronary artery disease) December 03, 2024 4:33pm COPD (chronic obstructive pulmonary dise ase) December 03, 2024 4:33pm Hyperlipidemia December 03, 2024 4:33p m Hypothyroidism December 03, 2024 4:33p m Avascular necrosis December 03, 2024 4:33p m Closed right hip fracture December 03, 2024 4:33pm HTN (hypertension) December 03, 2024 4:33p m Impaired mobility and activities of carmen y living December 03, 2024 4:33pm S/P total hip arthroplasty December 03 4:33pm Seizure disorder December 03, 2024 4:33p m Avascular necrosis of bone of right hip December 22, 2024 3:59pm Avascular necrosis of left femur December 3:59pm Closed subcapital fracture of right femu r December 22, 2024 3:59pm Right shoulder pain December 22, 2024 3:59p m Status post total hip replacement, right December 22, 2024 3:59pm Avascular necrosis of bone of right hip January 12, 2025 10:57am Avascular necrosis of left femur January 122024 10:57am Closed subcapital fracture of right femu r January 12, 2025 10:57am Right shoulder pain January 12, 2025 10:5 7am Status post total hip replacement, right January 12, 2025 10:57am Avascular necrosis of bone of right hip February 11, 2025 11:59am Avascular necrosis of left femur February 112024 11:59am Closed subcapital fracture of right femu r February 11, 2025 11:59am Right shoulder pain February 11, 2025 11:5 9am Status post total hip replacement, right February 11, 2025 11:59am Cellulitis of right lower extremity Augu 2024 10:17am Stasis dermatitis February 24, 2025 10 :17am Chief Complaint Admit Date R Hip Fx S/P [place] December 03, 2024 4:33p m R Hip Fx S/P [place] December 04, 2024 11:49 am R Hip Fx S/P [place] December 12, 2024 1:15p m HOSP F/U RT [place] December 22, 2024 3:59p m M25.511 - Pain in right shoulder December 4:43pm 3 WEEKS January 12, 2025 10:5 7am Hip pain February 06, 2025 11:3 2am H & P LEFT TOTAL HIP ARTHROPLASTY February 11, 2025 11:59am Hip pain February 24, 2025 7: 12am Hip pain February 24, 2025 10 :17am RECHECK LT HIP PER HARDY March 04, 2025 11:08am Reason for Visit Admit Date Alcohol dependence December 03, 2024 4:33p m BPH (benign prostatic hyperplasia) November 142024 4:33pm CAD (coronary artery disease) December 03, 2024 4:33pm COPD (chronic obstructive pulmonary dise ase) December 03, 2024 4:33pm Hyperlipidemia December 03, 2024 4:33p m Hypothyroidism December 03, 2024 4:33p m Avascular necrosis December 03, 2024 4:33p m Closed right hip fracture December 03, 2024 4:33pm HTN (hypertension) December 03, 2024 4:33p m Impaired mobility and activities of carmen y living December 03, 2024 4:33pm S/P total hip arthroplasty December 03 4:33pm Seizure disorder December 03, 2024 4:33p m Avascular necrosis of bone of right hip December 22, 2024 3:59pm Avascular necrosis of left femur December 3:59pm Closed subcapital fracture of right femu r December 22, 2024 3:59pm Right shoulder pain December 22, 2024 3:59p m Status post total hip replacement, right December 22, 2024 3:59pm Avascular necrosis of bone of right hip January 12, 2025 10:57am Avascular necrosis of left femur January 122024 10:57am Closed subcapital fracture of right femu r January 12, 2025 10:57am Right shoulder pain January 12, 2025 10:5 7am Status post total hip replacement, right January 12, 2025 10:57am Avascular necrosis of bone of right hip February 11, 2025 11:59am Avascular necrosis of left femur February 112024 11:59am Closed subcapital fracture of right femu r February 11, 2025 11:59am Right shoulder pain February 11, 2025 11:5 9am Status post total hip replacement, right February 11, 2025 11:59am Cellulitis of right lower extremity Augu 2024 10:17am Stasis dermatitis February 24, 2025 10 :17am Avascular necrosis of bone of right hip March 04, 2025 11:08am Avascular necrosis of left femur March 04, 2025 11:08am Closed subcapital fracture of right femu r March 04, 2025 11:08am Right shoulder pain March 04, 2025 11 :08am Status post total hip replacement, right March 04, 2025 11:08am Additional Source Comments (unrecognized sect ion and content) No Status Records FoundNo Status Records FoundNo Status Records FoundNo Status Records FoundNo Status Records FoundNo Status Records Found INFORMATION SOURCE (unrecogn ized section and content) DATE CREATED AUTHOR 02/15/2019 [facility] DATE CREATED AUTHOR AUTHOR'S ORGANIZ ATION 12/22/2022 [facility] DATE CREATED AUTHOR AUTHOR'S ORGANIZ ATION 03/06/2023 [facility] DATE CREATED AUTHOR AUTHOR'S ORGANIZ ATION 03/13/2025 [facility] DATE CREATED AUTHOR AUTHOR'S ORGANIZ ATION 04/19/[address] [facility] DATE CREATED AUTHOR AUTHOR'S ORGANIZ ATION 04/19/2025 [facility] Care Teams (unrecognized sec tion and content) Team Status: Active Member Role Status Dates Pee Lakhani MD Primary Care Provider Active Team Status: Inactive Member Role Status Dates Pee Lakhani MD Primary Care Provider Active Start: December 01, 2024 End: December 03, 2024 Ammon Cochran DO Admit Provider Active Start: December 01, 2024 End: December 03, 2024 Justin Garcia MD Other Provider Active Start: M ay 2024 End: December 03, 2024 Kassy Mckay MD Other Provider Active Star t: December 01, 2024 End: December 03, 2024 Nishant Ceja DO Other Provider Active Start : December 01, 2024 End: December 03, 2024 Janki Lam II, MD Other Provider Active S tart: December 01, 2024 End: December 03, 2024 Rehan Thomas DO Other Provider Active Start: December 01, 2024 End: December 03, 2024 Luis Alberto eHarn MD Attending Provider Active St art: December 01, 2024 End: December 03, 2024 Maria Del Rosario Hernandez MD Other Provider Active Start: Mariela lambert 2024 End: December 03, 2024 Jose Antonio Camara MD Other Provider Active Start: M ay 2024 End: December 03, 2024 Gloria Arrington APRN Other Provider Active St art: December 01, 2024 End: December 03, 2024 Levi Waterman Jr, DO Other Provider Active S tart: December 01, 2024 End: December 03, 2024 Paco Jimenez MD Other Provider Active Start: December 01, 2024 End: December 03, 2024 Team Status: Active Member Role Status Dates Pee Lakhani MD Primary Care Provider Active Start: December 01, 2024 Ammon Cochran DO Admit Provider Active Start: December 01, 2024 Justin Garcia MD Other Provider Active Start: M ay 2024 Kassy Mckay MD Other Provider Active Star t: December 01, 2024 Nishant Ceja DO Attending Provider, Other Provider Active Start: December 01, 2024 Janki Lam II, MD Other Provider Active S tart: December 01, 2024 Rehan Thomas , DO Other Provider Active Start: December 01, 2024 Luis Alberto Hearn MD Other Provider Active Start: December 01, 2024 Team Status: Active Member Role Status Dates Pee Lakhani MD Primary Care Provider Active Start: December 03, 2024 Ammon Cochran DO Admit Provider Active Start: December 03, 2024 Justin Garcia MD Other Provider Active Start: M ay 2024 Kassy Mckay MD Other Provider Active Star t: December 03, 2024 Nishant Ceja , Other Provider Active Start : December 03, 2024 Janki Lam II, MD Other Provider Active S tart: December 03, 2024 Rehan Thomas , DO Other Provider Active Start: December 03, 2024 Luis Alberto Hearn MD Other Provider Active Start: December 03, 2024 Maria Del Rosario Hernandez MD Other Provider Active Start: Ma y 2024 Jose Antonio Camara MD Attending Provider, Other Provider Active Start: December 03, 2024 Gloria Arrington APRN Other Provider Active St art: December 03, 2024 Levi Waterman Jr, DO Other Provider Active S tart: December 03, 2024 Paco Jimenez MD Other Provider Active Start: December 03, 2024 Team Status: Inactive Member Role Status Dates Pee Lakhani MD Primary Care Provider Active Start: December 03, 2024 End: December 14, 2024 Paco Jimenez MD Admit Provid er, Attending Provider Active Start: December 03, 2024 End: December 14, 2024 Padmini Acosta RN Other Provider Active Star t: December 03, 2024 End: December 14, 2024 Annemarie Bhakta , BRISEYDA Other Provider Active Start : December 03, 2024 End: December 14, 2024 Angle Monreal , BRISEYDA Other Provider Active Star t: December 03, 2024 End: December 14, 2024 Cindy Reveles RN Other Provider Active Start: M ay 2024 End: December 14, 2024 Lena Wasserman RN Other Provider Active Start: Ma y 2024 End: December 14, 2024 Liv Camara RN Other Provider Active Start: M ay 2024 End: December 14, 2024 Yonis Alves MD Other Provider Active Start: December 03, 2024 End: December 14, 2024 Kenzie Duffy DO Other Provider Active Start : December 03, 2024 End: December 14, 2024 Tom Huerta MD Other Provider Active Start : December 03, 2024 End: December 14, 2024 Connor Oliveros DO Other Provider Active Start: December 03, 2024 End: December 14, 2024 Luis Alberto Hearn MD Other Provider Active Start: December 03, 2024 End: December 14, 2024 Brie Romero MD Other Provider Active Start : December 03, 2024 End: December 14, 2024 Ammon Quiros DO Other Provider Active St art: December 03, 2024 End: December 14, 2024 Phil Moore MD Other Provider Active Start: M ay 2024 End: December 14, 2024 Danyell Daniels APRN Other Provider Active Start: December 03, 2024 End: December 14, 2024 Yakov Hodges MD Other Provider Active Start: December 03, 2024 End: December 14, 2024 Juan Pablo Hatch MD Other Provider Active Start: M ay 2024 End: December 14, 2024 Leeanna Hickey MD Other Provider Active Start: December 03, 2024 End: December 14, 2024 Vin Moran MD Other Provider Active Start: December 03, 2024 End: December 14, 2024 Ammon Cochran DO Other Provider Active Start: December 03, 2024 End: December 14, 2024 Reyes Tracey MD Other Provider Active Start: Ma y 2024 End: December 14, 2024 Kyle Huerta MD Other Provider Active Start: December 03, 2024 End: December 14, 2024 TITO Lewis Other Provider Active St art: December 03, 2024 End: December 14, 2024 Yamilet Alejandra APRN Other Provider Active Star t: December 03, 2024 End: December 14, 2024 J Luis Hebert MD Other Provider Active Start: December 03, 2024 End: December 14, 2024 Fermín Hope MD Other Provider Active Start: Ma y 2024 End: December 14, 2024 Tino Calixto MD Other Provider Active Start: December 03, 2024 End: December 14, 2024 Marline Rivera MD Other Provider Active Star t: December 03, 2024 End: December 14, 2024 Yan Joel MD Other Provider Active Start: M ay 2024 End: December 14, 2024 Trinity Tai , Other Provider Active Start: Ma y 2024 End: December 14, 2024 Andres Flores , Other Provider Active Start : December 03, 2024 End: December 14, 2024 Reshma Marin APRN Other Provider Active Start: December 03, 2024 End: December 14, 2024 Az Bai , Other Provider Active Start: December 03, 2024 End: December 14, 2024 Luciana Dempsey MD Other Provider Active Sta rt: December 03, 2024 End: December 14, 2024 Diana Forde APRN Other Provider Active Start : December 03, 2024 End: December 14, 2024 Lorena Hernandez APRN Other Provider Active St art: December 03, 2024 End: December 14, 2024 Amaury Hernandez MD Other Provider Active Start: M ay 2024 End: December 14, 2024 Ruben Keith MD Other Provider Active S tart: December 03, 2024 End: December 14, 2024 Michael Savage , DO Other Provider Active Star t: December 03, 2024 End: December 14, 2024 Lesley Rea DO Other Provider Active Start: December 03, 2024 End: December 14, 2024 Gavin Calixto MD Other Provider Active Start: December 03, 2024 End: December 14, 2024 Hernandez Sampson MD Other Provider Active Start: December 03 End: December 14, 2024 Marti Ortega APRN Other Provider Active Star t: December 03, 2024 End: December 14, 2024 Ivonne Castro MD Other Provider Active Start: M ay 2024 End: December 14, 2024 Ander Light MD Other Provider Active Start: Ma y 2024 End: December 14, 2024 Jose Antonio Dacosta MD Other Provider Active Start: December 03, 2024 End: December 14, 2024 Phil Shaikh MD Other Provider Active Start : December 03, 2024 End: December 14, 2024 Juan M Elise MD Other Provider Active Start: M ay 2024 End: December 14, 2024 Praveena Mast APRN Other Provider Active Sta rt: December 03, 2024 End: December 14, 2024 Yeimi Smith APRN Other Provider Active Start: December 03, 2024 End: December 14, 2024 Mariam Moore , BRISEYDA Other Provider Active Start: M ay 2024 End: December 14, 2024 Team Status: Active Member Role Status Dates Pee Lakhani MD Primary Care Provider Active Start: December 04, 2024 Paco Jimenez MD Admit Provid er, Attending Provider, Other Provider Active Start: December 04, 2024 Padmini Acosta RN Other Provider Active Star t: December 04, 2024 Annemarie Bhakta , BRISEYDA Other Provider Active Start : December 04, 2024 Angle Monreal , BRISEYDA Other Provider Active Star t: December 04, 2024 Cindy Reveles , BRISEYDA Other Provider Active Start: M ay 2024 Lena Wasserman , BRISEYDA Other Provider Active Start: Ma y 2024 Liv Camara , BRISEYDA Other Provider Active Start: M ay 2024 Yonis Alves MD Other Provider Active Start: December 04, 2024 Kenzie Duffy , Other Provider Active Start : December 04, 2024 Tom Huerta MD Other Provider Active Start : December 04, 2024 Connor Oliveros , Other Provider Active Start: December 04, 2024 Luis Alberto Hearn MD Other Provider Active Start: December 04, 2024 Brie Romero MD Other Provider Active Start : December 04, 2024 Ammon Quiros DO Other Provider Active St art: December 04, 2024 Phil Moore MD Other Provider Active Start: M ay 2024 Danyell Daniels APRN Other Provider Active Start: December 04, 2024 Yakov Hodges MD Other Provider Active Start: December 04, 2024 Juan Pablo Hatch MD Other Provider Active Start: M ay 2024 Leeanna Hickey MD Other Provider Active Start: December 04, 2024 Vin Moran MD Other Provider Active Start: December 04, 2024 Ammon Cochran , Other Provider Active Start: December 04, 2024 Reyes Tracey MD Other Provider Active Start: Ma y 2024 Kyle Huerta MD Other Provider Active Start: December 04, 2024 Sis Bonner , [employer] Other Provider Active St art: December 04, 2024 Yamilet Alejandra APRN Other Provider Active Star t: December 04, 2024 J Luis Hebert MD Other Provider Active Start: December 04, 2024 Fermín Hope MD Other Provider Active Start: Ma y 2024 Tino Calixto MD Other Provider Active Start: December 04, 2024 Marline Rivera MD Other Provider Active Star t: December 04, 2024 Yan Joel MD Other Provider Active Start: M ay 2024 Trinity Tai , Other Provider Active Start: y 2024 Andres Flores , DO Other Provider Active Start : December 04, 2024 Reshma Marin APRN Other Provider Active Start: December 04, 2024 Az Bai , Other Provider Active Start: December 04, 2024 Luciana Dempsey MD Other Provider Active Sta rt: December 04, 2024 Diana Forde APRN Other Provider Active Start : December 04, 2024 Lorena Hernandez APRN Other Provider Active St art: December 04, 2024 Amaury Hernandez MD Other Provider Active Start: M ay 2024 Ruben Keith MD Other Provider Active S tart: December 04, 2024 Michael Savage , DO Other Provider Active Star t: December 04, 2024 Lesley Rea , DO Other Provider Active Start: December 04, 2024 Gavin Calixto MD Other Provider Active Start: December 04, 2024 Hernandez Sampson MD Other Provider Active Start: December 04 Marti Ortega APRN Other Provider Active Star t: December 04, 2024 Ivonne Castro MD Other Provider Active Start: M ay 2024 Ander Light MD Other Provider Active Start: Ma y 2024 Jose Antonio Dacosta MD Other Provider Active Start: December 04, 2024 Phil Shaikh MD Other Provider Active Start : December 04, 2024 Juan M Elise MD Other Provider Active Start: M ay 2024 Praveena Mast APRN Other Provider Active Sta rt: December 04, 2024 Yeimi Smith APRN Other Provider Active Start: December 04, 2024 Mariam Moore , BRISEYDA Other Provider Active Start: M ay 2024 Team Status: Active Member Role Status Dates Pee Lakhani MD Primary Care Provider Active Start: December 12, 2024 Paco Jimenez MD Admit Provid er, Attending Provider, Other Provider Active Start: December 12, 2024 Padmini Acosta , BRISEYDA Other Provider Active Star t: December 12, 2024 Annemarie Bhakta , BRISEYDA Other Provider Active Start : December 12, 2024 Angle Monreal , BRISEYDA Other Provider Active Star t: December 12, 2024 Cindy Reveles , BRISEYDA Other Provider Active Start: M ay 2024 Lena Wasserman , BRISEYDA Other Provider Active Start: Ma y 2024 Liv Camara , BRISEYDA Other Provider Active Start: 2024 Yonis Alves MD Other Provider Active Start: December 12, 2024 Kenzie Duffy , Other Provider Active Start : December 12, 2024 Tom Huerta MD Other Provider Active Start : December 12, 2024 Connor Oliveros DO Other Provider Active Start: December 12, 2024 Luis Alberto Hearn MD Other Provider Active Start: December 12, 2024 Brie Romero MD Other Provider Active Start : December 12, 2024 Ammon Quiros DO Other Provider Active St art: December 12, 2024 Phil Moore MD Other Provider Active Start: M ay 2024 Danyell Daniels APRN Other Provider Active Start: December 12, 2024 Yakov Hodges MD Other Provider Active Start: December 12, 2024 Juan Pablo Hatch MD Other Provider Active Start: M ay 2024 Leeanna Hickey MD Other Provider Active Start: December 12, 2024 Vin Moran MD Other Provider Active Start: December 12, 2024 Ammon Cochran , Other Provider Active Start: December 12, 2024 Reyes Tracey MD Other Provider Active Start: Ma y 2024 Kyle Huerta MD Other Provider Active Start: December 12, 2024 Sis Bonner , [employer] Other Provider Active St art: December 12, 2024 Yamilet Alejandra APRN Other Provider Active Star t: December 12, 2024 J Luis Hebert MD Other Provider Active Start: December 12, 2024 Fermín Hope MD Other Provider Active Start: Ma y 2024 Tino Calixto MD Other Provider Active Start: December 12, 2024 Marline Rivera MD Other Provider Active Star t: December 12, 2024 Yan Joel MD Other Provider Active Start: M ay 2024 Trinity Tai , Other Provider Active Start: y 2024 Andres Flores , DO Other Provider Active Start : December 12, 2024 Reshma Marin APRN Other Provider Active Start: December 12, 2024 Az Bai , Other Provider Active Start: December 12, 2024 Luciana Dempsey MD Other Provider Active Sta rt: December 12, 2024 Diana Forde APRN Other Provider Active Start : December 12, 2024 Lorena Hernandez APRN Other Provider Active St art: December 12, 2024 Amaury Hernandez MD Other Provider Active Start: M ay 2024 Ruben Keith MD Other Provider Active S tart: December 12, 2024 Michael Savage , DO Other Provider Active Star t: December 12, 2024 Lesley Rea , Other Provider Active Start: December 12, 2024 Gavin Calixto MD Other Provider Active Start: December 12, 2024 Hernandez Sampson MD Other Provider Active Start: December 12 Marti Ortega APRN Other Provider Active Star t: December 12, 2024 Ivonne Castro MD Other Provider Active Start: M ay 2024 Ander Light MD Other Provider Active Start: Ma y 2024 Jose Antonio Dacosta MD Other Provider Active Start: December 12, 2024 Phil Shaikh MD Other Provider Active Start : December 12, 2024 Juan M Elise MD Other Provider Active Start: ay 2024 Praveena Mast APRN Other Provider Active Sta rt: December 12, 2024 Yeimi Smith APRN Other Provider Active Start: December 12, 2024 Mariam Moore RN Other Provider Active Start: ay 2024 Team Status: Inactive Member Role Status Dates Pee Lakhani MD Primary Care Provider Active Start: December 03, 2024 End: December 14, 2024 Paco Jimenez MD Admit Provider Active Start: December 03, 2024 End: December 14, 2024 Padmini Acosta RN Other Provider Active Star t: December 03, 2024 End: December 14, 2024 Annemarie Bhakta , BRISEYDA Other Provider Active Start : December 03, 2024 End: December 14, 2024 Angle Monreal , BRISEYDA Other Provider Active Star t: December 03, 2024 End: December 14, 2024 Cindy Reveles RN Other Provider Active Start: M ay 2024 End: December 14, 2024 Lena Wasserman , BRISEYDA Other Provider Active Start: Ma y 2024 End: December 14, 2024 Liv Camara , BRISEYDA Other Provider Active Start: M ay 2024 End: December 14, 2024 Yonis Alves MD Other Provider Active Start: December 03, 2024 End: December 14, 2024 Kenzie Duffy DO Other Provider Active Start : December 03, 2024 End: December 14, 2024 Tom Huerta MD Other Provider Active Start : December 03, 2024 End: December 14, 2024 Connor Oliveros DO Other Provider Active Start: December 03, 2024 End: December 14, 2024 Luis Alberto Hearn MD Other Provider Active Start: December 03, 2024 End: December 14, 2024 Brie Romero MD Other Provider Active Start : December 03, 2024 End: December 14, 2024 Ammon Quiros DO Other Provider Active St art: December 03, 2024 End: December 14, 2024 Phil Moore MD Other Provider Active Start: M ay 2024 End: December 14, 2024 Danyell Daniels APRN Other Provider Active Start: December 03, 2024 End: December 14, 2024 Yakov Hodges MD Other Provider Active Start: December 03, 2024 End: December 14, 2024 Juan Pablo Hatch MD Other Provider Active Start: M ay 2024 End: December 14, 2024 Leeanna Hickey MD Other Provider Active Start: December 03, 2024 End: December 14, 2024 Vin Moran MD Other Provider Active Start: December 03, 2024 End: December 14, 2024 Ammon Cochran DO Other Provider Active Start: December 03, 2024 End: December 14, 2024 Reyes Tracey MD Other Provider Active Start: Ma y 2024 End: December 14, 2024 Kyle Huerta MD Other Provider Active Start: December 03, 2024 End: December 14, 2024 Sis Bonner , [employer] Other Provider Active St art: December 03, 2024 End: December 14, 2024 Yamilet Alejandra APRN Other Provider Active Star t: December 03, 2024 End: December 14, 2024 J Luis Hebert MD Other Provider Active Start: December 03, 2024 End: December 14, 2024 Fermín Hope MD Other Provider Active Start: Ma y 2024 End: December 14, 2024 Tino Calixto MD Other Provider Active Start: December 03, 2024 End: December 14, 2024 Marline Rivera MD Other Provider Active Star t: December 03, 2024 End: December 14, 2024 Yan Joel MD Other Provider Active Start: M ay 2024 End: December 14, 2024 Trinity Tai DO Other Provider Active Start: Ma y 2024 End: December 14, 2024 Andres Flores DO Other Provider Active Start : December 03, 2024 End: December 14, 2024 Reshma Marin APRN Other Provider Active Start: December 03, 2024 End: December 14, 2024 Az Bai , DO Other Provider Active Start: December 03, 2024 End: December 14, 2024 Luciana Dempsey MD Other Provider Active Sta rt: December 03, 2024 End: December 14, 2024 Diana Forde APRN Other Provider Active Start : December 03, 2024 End: December 14, 2024 Lorena Hernandez APRN Other Provider Active St art: December 03, 2024 End: December 14, 2024 Amaury Hernandez MD Other Provider Active Start: M ay 2024 End: December 14, 2024 Ruben Keith MD Other Provider Active S tart: December 03, 2024 End: December 14, 2024 Michael Savage , Other Provider Active Star t: December 03, 2024 End: December 14, 2024 Lesley Rea DO Other Provider Active Start: December 03, 2024 End: December 14, 2024 Gavin Calixto MD Other Provider Active Start: December 03, 2024 End: December 14, 2024 Hernandez Sampson MD Other Provider Active Start: December 03, 2024 End: December 14, 2024 Marti Ortega APRN Other Provider Active Star t: December 03, 2024 End: December 14, 2024 Ivonne Castro MD Other Provider Active Start: M ay 2024 End: December 14, 2024 Ander Light MD Other Provider Active Start: Ma y 2024 End: December 14, 2024 Jose Antonio Dacosta MD Other Provider Active Start: December 03, 2024 End: December 14, 2024 Phil Shaikh MD Other Provider Active Start : December 03, 2024 End: December 14, 2024 Juan M Elise MD Other Provider Active Start: M ay 2024 End: December 14, 2024 Praveena Mast APRN Other Provider Active Sta rt: December 03, 2024 End: December 14, 2024 Yeimi Smith APRN Other Provider Active Start: December 03, 2024 End: December 14, 2024 Mariam Moore RN Other Provider Active Start: M ay 2024 End: December 14, 2024 Jose Antonio Camara MD Attending Provider Active Star t: December 03, 2024 End: December 14, 2024 Team Status: Inactive Member Role Status Dates Pee Lakhani MD Primary Care Provider Active Start: December 22, 2024 End: December 22, 2024 Nishant Ceja , DO Attending Provider Active S tart: December 22, 2024 End: December 22, 2024 Team Status: Active Member Role Status Dates Pee Lakhani MD Primary Care Provider Active Start: December 22, 2024 Nishant Ceja , DO Attending Provider Active S tart: December 22, 2024 Team Status: Active Member Role Status Dates Pee Lakhani MD Primary Care Provider Active Start: December 01, 2024 Ammon Cochran DO Admit Provider Active Start: December 01, 2024 Justin Garcia MD Other Provider Active Start: M ay 2024 Kassy Mckay MD Other Provider Active Star t: December 01, 2024 Nishant Ceja DO Attending Provider Active S tart: December 01, 2024 Nishant Ceja DO Other Provider Active Start : December 01, 2024 Janki Lam II, MD Other Provider Active S tart: December 01, 2024 Rehan Thomas DO Other Provider Active Start: December 01, 2024 Luis Alberto Hearn MD Other Provider Active Start: December 01, 2024 Team Status: Active Member Role Status Dates Pee Lakhani MD Primary Care Provider Active Start: December 03, 2024 Ammon Cochran DO Admit Provider Active Start: December 03, 2024 Justin Garcia MD Other Provider Active Start: M ay 2024 Kassy Mckay MD Other Provider Active Star t: December 03, 2024 Nishant Ceja DO Other Provider Active Start : December 03, 2024 Janki Lam II, MD Other Provider Active S tart: December 03, 2024 Rehan Thomas DO Other Provider Active Start: December 03, 2024 Luis Alberto Hearn MD Other Provider Active Start: December 03, 2024 Maria Del Rosario Hernandez MD Other Provider Active Start: Ma y 2024 Jose Antonio Camara MD Attending Provider Active Star t: December 03, 2024 Jose Antonio Camara MD Other Provider Active Start: M ay 2024 Gloria Arrington APRN Other Provider Active St art: December 03, 2024 Levi Waterman Jr, DO Other Provider Active S tart: December 03, 2024 Paco Jimenez MD Other Provider Active Start: December 03, 2024 Team Status: Active Member Role Status Dates Pee Lakhani MD Primary Care Provider Active Start: December 04, 2024 Paco Jimenez MD Admit Provider Active Start: December 04, 2024 Paco Jimenez MD Attending Provider Active Start: December 04, 2024 Paco Jimenez MD Other Provider Active Start: December 04, 2024 Padmini Acosta , BRISEYDA Other Provider Active Star t: December 04, 2024 Annemarie Bhakta , BRISEYDA Other Provider Active Start : December 04, 2024 Angle Monreal , BRISEYDA Other Provider Active Star t: December 04, 2024 Cindy Reveles , BRISEYDA Other Provider Active Start: M ay 2024 Lena Wasserman RN Other Provider Active Start: Md y 2024 Liv Camara RN Other Provider Active Start: M ay 2024 Yonis Alves MD Other Provider Active Start: December 04, 2024 Kenzie Duffy , Other Provider Active Start : December 04, 2024 Tom Huerta MD Other Provider Active Start : December 04, 2024 Connor Oliveros DO Other Provider Active Start: December 04, 2024 Luis Alberto Hearn MD Other Provider Active Start: December 04, 2024 Brie Romero MD Other Provider Active Start : December 04, 2024 Ammon Quiros , Other Provider Active St art: December 04, 2024 Phil Moore MD Other Provider Active Start: M ay 2024 Danyell Daniels APRN Other Provider Active Start: December 04, 2024 Yakov Hodges MD Other Provider Active Start: December 04, 2024 Juan Pablo Hatch MD Other Provider Active Start: M ay 2024 Leeanna Hickey MD Other Provider Active Start: December 04, 2024 Vin Moran MD Other Provider Active Start: December 04, 2024 Ammon Cochran , DO Other Provider Active Start: December 04, 2024 Reyes Tracey MD Other Provider Active Start: Ma y 2024 Kyle Huerta MD Other Provider Active Start: December 04, 2024 Sis Bonner , [employer] Other Provider Active St art: December 04, 2024 Yamilet Alejandra APRN Other Provider Active Star t: December 04, 2024 J Luis Hebert MD Other Provider Active Start: December 04, 2024 Fermín Hope MD Other Provider Active Start: Ma y 2024 Tino Calixto MD Other Provider Active Start: December 04, 2024 Marline Rivera MD Other Provider Active Star t: December 04, 2024 Yan Joel MD Other Provider Active Start: M ay 2024 Trinity Tai , Other Provider Active Start: Ma y 2024 Andres Flores , DO Other Provider Active Start : December 04, 2024 Reshma Marin APRN Other Provider Active Start: December 04, 2024 Az Bai , Other Provider Active Start: December 04, 2024 Luciana Dempsey MD Other Provider Active Sta rt: December 04, 2024 Diana Forde APRN Other Provider Active Start : December 04, 2024 Lorena Hernandez APRN Other Provider Active St art: December 04, 2024 Amaury Hernandez MD Other Provider Active Start: M ay 2024 Ruben Keith MD Other Provider Active S tart: December 04, 2024 Michael Savage , DO Other Provider Active Star t: December 04, 2024 Lesley Rea , DO Other Provider Active Start: December 04, 2024 Gavin Calixto MD Other Provider Active Start: December 04, 2024 Hernandez Sampson MD Other Provider Active Start: December 04, 2024 Marti Ortega APRN Other Provider Active Star t: December 04, 2024 Ivonne Castro MD Other Provider Active Start: M ay 2024 Ander Light MD Other Provider Active Start: Ma y 2024 Jose Antonio Dacosta MD Other Provider Active Start: December 04, 2024 Phil Shaikh MD Other Provider Active Start : December 04, 2024 Juan M Elise MD Other Provider Active Start: M ay 2024 Praveena Mast APRN Other Provider Active Sta rt: December 04, 2024 Yeimi Smith APRN Other Provider Active Start: December 04, 2024 Mariam Moore , BRISEYDA Other Provider Active Start: ay 2024 Team Status: Active Member Role Status Dates Pee Lakhani MD Primary Care Provider Active Start: December 12, 2024 Paco Jimenez MD Admit Provider Active Start: December 12, 2024 Paco Jimenez MD Attending Provider Active Start: December 12, 2024 Paco Jimenez MD Other Provider Active Start: December 12, 2024 Padmini Acosta , BRISEYDA Other Provider Active Star t: December 12, 2024 Annemarie Bhakta , BRISEYDA Other Provider Active Start : December 12, 2024 Angle Monreal , BRISEYDA Other Provider Active Star t: December 12, 2024 Cindy Reveles , BRISEYDA Other Provider Active Start: ay 2024 Lena Wasserman , BRISEYDA Other Provider Active Start: Md y 2024 Liv Camara , BRISEYDA Other Provider Active Start: ay 2024 Yonis Alves MD Other Provider Active Start: December 12, 2024 Kenzie Duffy , Other Provider Active Start : December 12, 2024 Tom Huerta MD Other Provider Active Start : December 12, 2024 Connor Oliveros DO Other Provider Active Start: December 12, 2024 Luis Alberto Hearn MD Other Provider Active Start: December 12, 2024 Brie Romero MD Other Provider Active Start : December 12, 2024 Ammon Quiros DO Other Provider Active St art: December 12, 2024 Phil Moore MD Other Provider Active Start: M ay 2024 Danyell Daniels APRN Other Provider Active Start: December 12, 2024 Yakov Hodges MD Other Provider Active Start: December 12, 2024 Juan Pablo Hatch MD Other Provider Active Start: M ay 2024 Leeanna Hickey MD Other Provider Active Start: December 12, 2024 Vin Moran MD Other Provider Active Start: December 12, 2024 Ammon Cochran , Other Provider Active Start: December 12, 2024 Reyes Tracey MD Other Provider Active Start: Ma y 2024 Kyle Huerta MD Other Provider Active Start: December 12, 2024 Sis Bonner NP-C Other Provider Active St art: December 12, 2024 Yamilet Alejandra APRN Other Provider Active Star t: December 12, 2024 J Luis Hebert MD Other Provider Active Start: December 12, 2024 Fermín Hope MD Other Provider Active Start: Ma y 2024 Tino Calixto MD Other Provider Active Start: December 12, 2024 Marline Rivera MD Other Provider Active Star t: December 12, 2024 Yan Joel MD Other Provider Active Start: M ay 2024 Trinity Tai , Other Provider Active Start: 2024 Andres Flores , DO Other Provider Active Start : December 12, 2024 Reshma Marin APRN Other Provider Active Start: December 12, 2024 Az Bai , Other Provider Active Start: December 12, 2024 Luciana Dempsey MD Other Provider Active Sta rt: December 12, 2024 Diana Fored APRN Other Provider Active Start : December 12, 2024 Lorena Hernandez APRN Other Provider Active St art: December 12, 2024 Amaury Hernandez MD Other Provider Active Start: M ay 2024 Ruben Keith MD Other Provider Active S tart: December 12, 2024 Michael Savage , DO Other Provider Active Star t: December 12, 2024 Lesley Rea , DO Other Provider Active Start: December 12, 2024 Gavin Calixto MD Other Provider Active Start: December 12, 2024 Hernandez Sampson MD Other Provider Active Start: December 12, 2024 Marti Borisov , [employer]ER Other Provider Active Star t: December 12, 2024 Ivonne Castro MD Other Provider Active Start: M ay 2024 Ander Light MD Other Provider Active Start: Ma y 2024 Jose Antonio Dacosta MD Other Provider Active Start: December 12, 2024 Phil Shaikh MD Other Provider Active Start : December 12, 2024 Juan M Elise MD Other Provider Active Start: M ay 2024 Praveena Mast APRN Other Provider Active Sta rt: December 12, 2024 Yeimi Smith APRN Other Provider Active Start: December 12, 2024 Mariam Moore RN Other Provider Active Start: M ay 2024 Team Status: Inactive Member Role Status Dates Pee Lakhani MD Primary Care Provider Active Start: January 12, 2025 End: January 12, 2025 Nishant Ceja DO Attending Provider Active S tart: January 12, 2025 End: January 12, 2025 Team Status: Inactive Member Role Status Dates Pee aLkhani MD Primary Care Provider Active Start: February 06, 2025 End: February 06, 2025 Nishant Ceja DO Attending Provider Active S tart: February 06, 2025 End: February 06, 2025 Team Status: Inactive Member Role Status Dates Pee Lakhani MD Primary Care Provider Active Start: February 11, 2025 End: February 11, 2025 Nishant Ceja DO Attending Provider Active S tart: February 11, 2025 End: February 11, 2025 Team Status: Active Member Role Status Dates Pee Lakhani MD Primary Care Provider Active Start: February 24, 2025 Nishant Ceja DO Other Provider Active Start : February 24, 2025 Ammon Huang MD Attending Provider Active Sta rt: February 24, 2025 Ammon Huang MD Other Provider Active Start: February 24, 2025 Team Status: Inactive Member Role Status Dates Pee Lakhani MD Primary Care Provider Active Start: February 24, 2025 End: February 26, 2025 Nishant Ceja DO Admit Provider Active Start : February 24, 2025 End: February 26, 2025 Nishant Ceja DO Attending Provider Active S tart: February 24, 2025 End: February 26, 2025 Ammon Huang MD Other Provider Active Start: February 24, 2025 End: February 26, 2025 Team Status: Inactive Member Role Status Dates Pee Lakhani MD Primary Care Provider Active Start: March 04, 2025 End: March 04, 2025 Nishant Ceja DO Attending Provider Active S tart: March 04, 2025 End: March 04, 2025 Reason for Visit (unrecogniz ed section and content) Reason Comments Rash FOR RECORDS PERTAINING TO PATIENTS WHO ARE [...] BE BASED ON THE PRIMARY CLINICAL RECORDS. [facility] [employer] provides no warranty or guarantee of the accuracy or completeness of information in this document.
== END 2025-04-22 15:20 | disposition home or self-care (01) ==
LOC: US 15:20
PROVIDERS: PCP Family Medicine; Visit Provider Family Medicine
DX: R10.31 Right lower quadrant pain (principal)
CPT/HCPCS: 76705

== ENCOUNTER 2025-05-20 11:02 | Outpatient (OUT) | payer MEDICARE, SELFPAY ==
--- OUTSIDE RECORDS SUMMARY | 2025-05-13 10:05 | XMS_ITS | Continuity of Care Document ---
Author Organization [facility] Address [address] [place] [address] Phone Care Team Providers Care Java Groovy Developer Name Role Phone Patrice Guadalupe MD Primary Care Provider [phone] Nishant Ceja DO Other Provider Ammon Huang MD Attending Provider Ammon Huang MD Other Provider [phone] Nishant Ceja DO Admit Provider Nishant Ceja DO Attending Provider Care Teams Patient Care Team Team Status: Active Member Role/Relationship Status Gabriella Guadalupe MD Primary Care Provider Active Visit Care Team Team Status: Active Member Role/Relationship Status Gabriella Guadalupe MD Primary Care Provider Active Start: February 24, 2025 Nishant Ceja DOOther ProviderActiveStart: February 24, 2025 Ammon Huang MDAttnatalee ProviderActiveStart: February 24, 2025 Ammon Huang MDOther ProviderActiveStart: February 24, 2025 Visit Care Team Team Status: Inactive Member Role/Relationship Status Gabriella Guadalupe MD Primary Care Provider Active Start: February 24, 2025 End: February 26, 2025Jumando Ceja DOAdmit ProviderActiveStart: February 24, 2025 End: February 26, 2025Nishant Ceja DOAttnatalee ProviderActiveStart: February 24, 2025 End: February 26, 2025Ammon Huang MDOther ProviderActiveStart: February 24, 2025 End: February 26, 2025 Visit Care Team Team Status: Inactive Member Role/Relationship Status Gabriella Guadalupe MD Primary Care Provider Active Start: March 04, 2025 End: March 04, 2025JuJanes Box ProviderActiveStart: March 04, 2025 End: March 04, 2025 Patient Care Team Team Status: Inactive Member Role/Relationship Status Dates Patrice Guadalupe MD Primary Care Provider Active Start: May 13, 2025 End: May 13, 2025JuJanes Box ProviderActiveStart: May 13, 2025 End: May 13, 2025 Chief Complaint and Reason for Visit Chief Complaint Admit Date Hip pain February 24, 2025 7: 12am Hip pain February 24, 2025 10 :17am RECHECK LT HIP PER HARDY March 04, 2025 11:08am OP SP LT HIP PAIN May 13, 2025 2 :41pm Reason for Visit Admit Date Stasis dermatitis February 24, 2025 10 :17am Cellulitis of right lower extremity Augu st 2024 10:17am Avascular necrosis of bone of right hip March 04, 2025 11:08am Avascular necrosis of left femur March 04, 2025 11:08am Closed subcapital fracture of right femu r March 04, 2025 11:08am Rash March 04, 2025 11 :08am Right shoulder pain March 04, 2025 11 :08am Status post total hip replacement, right March 04, 2025 11:08am Avascular necrosis of bone of right hip May 13, 2025 2:41pm Avascular necrosis of left femur May 13, 2025 2:41pm Closed subcapital fracture of right femu r May 13, 2025 2:41pm Rash May 13, 2025 2 :41pm Right shoulder pain May 13, 2025 2 :41pm Status post total hip replacement, right May 13, 2025 2:41pm Allergies, Adverse Reactions, Alerts Allergen Type Severity Reaction Last Updated Verified Status Penicillins Allergy Severe Swelling of Thr oat, Rash May 13, 2025 2:43pm Yes Active procaine Allergy Unknown Unknown Reaction May 13, 2025 2:43pm Yes Active strawberry Allergy Unknown Hives May 13, 2025 2:43pm Yes Active Social History Smoking Status Status Start Date End Date Date of Observa tion Ex-smoker (finding) February 24, 2025 10:46am Observation Status Observation Response Date of Response Legal Sex Male (finding) Sex Assigned At BirthMaleJuly 1964 Social History Assessments Assessment Value Date Recorded SDOH Follow up February 26, 2025 11:18amQuestionAnswerDate RecordedHas the SDOH screening changed since admission?NAugu 2024 11:18am Family History Relationship Condition Age at Onset Recorded Date/T araseli father Diabetes mellitus Unknown Malignant neoplasmUnknownMultiple sclerosisUnknownmotherMalignant neoplasm Unknown Problems Active Problems Problem Diagnosis/Recorded Date Onset Date Stat us BPH (benign prostatic hyperplasia) December 01, 2024 9:36 pm Unknown Active Alcohol dependence December 01, 2024 9:37pm Unknown Active CAD (coronary artery disease) December 04, 2024 5:48pm Un known Active Avascular necrosis of left femur December 18, 2024 9:13am Unknown Active Avascular necrosis of bone of right hip December 18, 2024 9:12am Unknown Active Rash March 04, 2025 12:27pm Unknown Ac tive Hyperlipidemia December 04, 2024 5:47pm Unknown Acti ve Hyponatremia December 01, 2024 9:37pm Unknown Active Hypothyroidism December 01, 2024 9:36pm Unknown Acti ve Right shoulder pain December 22, 2024 5:09pm Unknown Active COPD (chronic obstructive pu lmonary disease) December 01, 2024 9:38pm Unknown Active Closed subcapital fracture of right femur December 18 9:12am Unknown Active Stasis dermatitis February 24, 2025 10:45am Unknown Active Inactive/Resolved Problems Problem Diagnosis/Recorded Date Onset Date Stat Impaired mobility and activi ties of daily living December 04, 2024 2:50pm Unknown Resolved Femoral neck fracture December 01, 2024 9:22pm Unknown Resolved Avascular necrosis December 02, 2024 7:09am Unknown Resolved S/P total hip arthroplasty December 03, 2024 8:26am Unkno wn Resolved Seizure disorder December 01, 2024 9:36pm Unknown Re solved HTN (hypertension) December 01, 2024 9:36pm Unknown Resolved Closed right hip fracture December 01, 2024 10:08pm Unkno wn Resolved Medications Medication Status Dose Units Route Directions Qty Days Refills S tart Date Stop Date End Date Reason(s) Instructions Adherence Triamcinolone Acetonide 0.5 % cream Active 1 APPLIC TOPICAL Twice daily 15 30 2 February 25, 2025 12:00am RLE dermatitisComplies with drug therapyMetoprolol Tartrate 50 mg fhgmipIrukit69 MGPOTwice dailyDecember 01, 2024 12:00amComplies with drug therapyAspirin 81 mg gsoorkBjfrqgbelzpg90WHFUVacxg dailyMa2024 12:00amMa2024 1:20pm Atorvastatin 10 mg ohpgliGmndvb32QUKUUdlskryPzb 19th, 2025 12:00amComplies with drug therapyTizanidine 4 mg iedtsyYjfmri8UWHRSkxpwhmMod 19th, 2025 12:00am Complies with drug therapyIsosorbide Mononitrate 30 mg tablet extended release 24 nlAnupia05BVLC.amDecember 01, 2024 12:00amComplies with drug therapyTopiramate 100 mg wehtxaXjalnj660UUOAFcikcqmCwc 19th, 2025 12:00amComplies with drug therapyDiphenhydramine Hcl (Allergy (Diphenhydramine)) 25 mg rtzchoqJvqkrb73BXEW Daily at bedtimeMay 2024 12:00amComplies with drug therapyMelatonin 12 mg nhwkauIriglm30NQQQXkngp at bedtimeDecember 01, 2024 12:00amComplies with drug therapyDiclofenac Sodium 75 mg tablet,delayed release (DR/EC)Xdqazavxwmrc62OMWR .PRNMay 2024 12:00amMa2024 11:46amLevothyroxine 125 mcg tablet Oknyml545EFFSS.amDecember 01, 2024 12:00amComplies with drug therapyTamsulosin 0.4 mg capsuleActive0.4MGPODailyDecember 01, 2024 12:00amComplies with drug therapy Topiramate (Topamax) 100 mg wgowryJcvqtc479JNRG.amDecember 01, 2024 12:00amComplies with drug therapyPolyethylene Glycol 3350 (Healthylax) 17 gram Powder In Packet Msxeaguhuyjn32FJKWLvtwv50Dgn 21st, 2025 12:00amJuly 2024 12:17pm Sennosides-Docusate Sodium 8.6-50 mg QiyfynLxkylcssnivq9HRWHQVvmqq fefid58OeeDecember 03, 2024 12:00amMay 2024 1:21pmAcetaminophen 500 mg TabletDiscontinued 4898WXVZN9Q770Oth 21st, 2025 12:00amMay 2024 1:20pmAscorbic Acid (Vitamin C) (Vitamin C) 500 mg FfpajiRdtlvycfhfrw526INHSIzpeh daily with hppsm0479InbDecember 03, 2024 12:002024 1:20pmOxycodone 5 mg HdpqkpQzcfqtzwjwac1MCRC Every 6 hours as needed for Pain Scale 4 - 700May , 2024 1:21pmRivaroxaban (Xarelto) 10 mg SwaddwKpinvmcbbhgd00ZXFFNitsi75Opn 21st, 2025 12:002024 1:21pmDiclofenac Sodium 75 mg tablet,delayed release (DR/EC)Cuktamplmqlu87CZDFDwiqp532Bbm 21st, 2025 11:46amMa2024 1:20pm Calcium Carbonate-Vitamin D3 (Calcium 600 With Vitamin D3) 600 mg-12.5 mcg (500 unit) rnodgqgXnnyqouccirq3NOMFFKdnex jitje445VtiDecember 03, 2024 12:002024 1:20pmBudesonide-Formoterol (Symbicort) 160-4.5 mcg/actuation Hfa Aerosol IhezykfKvlnirknxdho3JDWYKYHCKCTEAYHtthg daily10.20December 12, 2024 12:00amJuly 2024 12:16pmAcetaminophen 500 mg BqgmmdKvnlmm0534PGGSG8W as needed for kvrj975043Roq 2024 1:20pmComplies with drug therapyAscorbic Acid (Vitamin C) (Vitamin C) 500 mg FmhiizTzhtdh535CWEPGhmcd daily with mhfpp7934EfcDecember 12, 2024 1:20pmComplies with drug therapyDiclofenac Sodium 75 mg tablet,delayed release (DR/EC)Rsxkeg34PEJZZyykf720Jod 30th, 2025 1:20pmComplies with drug therapyCalcium Carbonate-Vitamin D3 (Calcium 600 With Vitamin D3) 600 mg-12.5 mcg (500 unit) wopiihpZualfx0GQYQZWbkpy auvur787Vao 2024 1:20pmComplies with drug therapyDocusate Sodium (Colace) 100 mg qejebtcEehuaa550BVXPIusls daily 70233Oxba 2024 12:00amComplies with drug therapyAspirin 81 mg tablet,xozgpjstVvhcpy09QWZQOfwpj xtzep26546Unot 2024 12:00amComplies with drug therapyOxycodone 5 mg iedoonVwmksi5FTEBB7D as needed for Xlha0957Uezu vascular necrosis of left femur Idiopathic aseptic necrosis of left femurforty-two #42 DO NOT FILL UNTIL 02/23/25Complies with drug therapyTramadol 50 mg tablet Xyqdzhtoluyb81DSASU2U as needed for Caok9034Rgsz 2024 12:00amJuly 2024 12:51pmAvascular necrosis of left femur Idiopathic aseptic necrosis of left femurforty-two #42 DO NOT FILL UNTIL 02/24/25Doxycycline Hyclate 100 mg sskqfrCkmdwg997BEOLYxqlu okpgu3245Elwf 2024 12:00amComplies with drug therapyCyclobenzaprine 10 mg tabletActive5 - 93GGXGQ7U55591Bszu 2024 12:00amComplies with drug therapy Tramadol 50 mg pvbwuzXymhes16JEAYW5P as needed for Uixi1122Bwbd 2024 12:51pmAvascular necrosis of left femur Idiopathic aseptic necrosis of left femurforty-two #42 okay to fill pre op 5Complies with drug therapyPrednisone 5 mg tablet Ehjkem8TJAHhjfoh28173Ozgqtf 2024 12:00amTake 5 pills by mouth x2 days, take 4 pills by mouth x2 days, take 3 pills by mouth x2 days, take 2pills by mouth x2 days, take 1 pill by mouth x2 days.Complies with drug therapy Medical Equipment Device Date Implanted Device Details Coated hip femur prosthesis, modular December 02, 2024 SORAIDA: [id number] Issuing Agency: [facility] Device Id: [id number] Expiration Date: 2033-09-27 Lot Number: [id number] shellMay 2024UDI: ()[id number] Issuing Agency: [facility] Device Id: [id number] Expiration Date: 2034-07-21 Lot Number: [id number] femoral head prosthesisMay 2024UDI: [id number] Issuing Agency: [facility] Device Id: [id number] Expiration Date: 2030-01-25 Lot Number: [id number] bone screw, non-bioabsorbable, sterileMay 2024UDI: [id number] Issuing Agency: [facility] Device Id: [id number] Expiration Date: 2030-03-26 Lot Number: [id number] bone screw, non-bioabsorbable, sterileMay 2024UDI: [id number] Issuing Agency: [facility] Device Id: [id number] Expiration Date: 2033-07-02 Lot Number: [id number]-[id number] polyethylene acetabular linerMay 2024 SORAIDA: [id number] Issuing Agency: [facility] Device Id: [id number] Expiration Date: 2029-08-06 Lot Number: [id number] Procedures Procedure Date Performed Status OR Total Hip Arthro MIS/Revision (Left) February 132024 9:25am completed Relevant Diagnostic Tests and/or Laboratory Data Laboratory Results Test Collection Date/Time Result Date/Time Result Interpretation Reference Range Result Comment Performing Site Corrected White Blood Count February 25, 2025 4:25am February 25, 2025 5:12am 6.9 10*3/uL 4.1-10.5[facility] [id number] [address] [place] [address]Pitpfwseqbs WBC CountAugust 2024 4:25amAugust 2024 5:12am6.9 10*3/uL4.1-10.5FPark[facility] [id number] [address] [facility] [address]Mfi Blood CountAugust 2024 4:2024 5:12am 4.31 10*6/uL3.90-5.60[facility] [id number] [address] [facility] 311[address]GftajapzlqIwxmzc 2024 4:2024 5:12am14.3 g/dL13.0-17.0[facility] [id number] [address] [facility] [address]BxuxytkrgvHhuvuz 2024 4:2024 5:12am42.9 %38.8-50.0[facility] [id number] [address] [place] [address]Pdhs Corpuscular VolumeAugust 2024 4:2024 5:12am99.5 fL83.5-101[facility] [id number] [address] [facility] 25[address]Lira Corpuscular HemoglobinAugust 2024 4:2024 5:12am33.2 pg27.5-35.2FPark[facility] [id number] [address] [place] [address]Uqlu Corpuscular Hemoglobin ConcentAugust 2024 4:25am February 25, 2025 5:12am33.4 g/dL32.5-35.6FPark[facility] [id number] [address] [facility] 478[address]Zmr Cell Distribution WidthAugust 2024 4:2024 5:12am13.5 %12.0-14.8[facility] [id number] [address] [place] [address] 30[address]Xmekygfn CountAugust 2024 4:2024 5:12am 164 10*3/eH899-568UdltrywbsMorrow [facility] Hospital [facility] [id number] [address] [facility] 185[address]Wrrz Platelet VolumeAugust 2024 4:2024 5:12am8.5 fL6.6-10.1FPark[facility] [id number] [address] [facility] 965[address]Qwzvvzesffd (%) (Auto)February 25, 2025 4:2024 5:12am49.4 %.[facility] [id number] [address] [facility] [address]Ihcubgfjwmh (%) (Auto)February 25, 2025 4:2024 5:12am31.0 %.[facility] [id number] [address] [facility] [address]Jiowisgpi (%) (Auto)February 25, 2025 4:2024 5:12am10.5 %.[facility] [id number] [address] [facility] 197[address]Pvngialaowi (%) (Auto)February 25, 2025 4:2024 5:12am8.6 %.[facility] [id number] [address] [facility] 71807Wkdmwrumr (%) (Auto)February 25, 2025 4:2024 5:12am0.5 %.[facility] [id number] [address] [facility] [address]Dogizoemr RBC Relative Count (auto)February 25, 2025 4:25am February 25, 2025 5:12am0.1 /100{WBC}0-0.5FPark[facility] [id number] [address] [facility] [address]Cuavafokecz # (Auto)February 25, 2025 4:2024 5:12am3.4 10*3/uL1.8-7.7FPark[facility] [id number] [address] [facility] 924[address]Ngrtvagmrlw # (Auto)February 25, 2025 4:2024 5:12am2.1 10*3/uL1.00-4.8[facility] [id number] [address] [facility] 81692Ejnpiyqsu # (Auto)February 25, 2025 4:2024 5:12am0.7 10*3/uL0.0-0.8[facility] [id number] [address] [facility] 93[address]Qndzwtkcjou # (Auto)February 25, 2025 4:2024 5:12am0.6 10*3/uLAbove high normal0.0-0.45[facility] [id number] [address] [place] [id number] # (Auto)February 25, 2025 4:2024 5:12am0.0 10*3/uL0.0-0.2FPark[facility] [id number] [address] [facility] 16[address]Opnwdkl LevelAugust 2024 4:2024 5:31am77 mg/zI37-250PXZ recommended reference rangeRandom Glucose Reference Range is dependent on time and content of last meal. Glucose of more than 200 mg/dL in a nonstressed, ambulatory subject supports the diagnosisof Diabetes Mellitus. [facility] [id number] [address] [facility] [address]Bbnxj Urea NitrogenAugust 2024 4:2024 5:31am11 mg/dL7-25[facility] [id number] [address] [facility] [id number] 2024 4:2024 5:31am0.76 mg/dL0.70-1.30[facility] [id number] [address] [facility] 63550Ijnkglybp GFR (CKD-EPI)February 25, 2025 4:2024 5:31am> 60.0 mL/MinMorrow County Hospital Ctr [id number] [address] [facility] 24[address]Dhduuz LevelAugust 2024 4:2024 5:88lp325 mmol/LBelow low -729GiyrfqfqvMorrow County Hospital Ctr [id number] [address] [facility] 30[address]Yxojqyyqo LevelAugust 2024 4:ugu2024 5:31am 4.0 mmol/L3.5-5.1FParkview [facility] [id number] [address] [facility] 86[address]Rmxbjzby LevelAugust 2024 4:2024 5:31am 102 mmol/V32-345HnnrodlduMorrow County Hospital Ctr [id number] [address] [place] [id number] Dioxide LevelAugust 2024 4:2024 5:31am19.9 mmol/LBelow low igoaqd49.0-31.0[facility] [id number] [address] [facility] [address]Cudet GapAugust 2024 4:2024 5:31am12.1 mEq/L6.0-15.0[facility] [id number] [address] [facility] [address]Ejdgwiw LevelAugust 2024 4:2024 5:31am 8.2 mg/dLBelow low normal8.6-10.3FPark[facility] [id number] [address] [facility] [address]Eqkpkkiu Creatinine Clearance (ChemAugust 2024 4:25am February 25, 2025 5:51yl884.16[facility] [id number] [address] [facility] [address] Vital Signs Vital Reading Result Reference Range Collection Date/Time Height 72 [in_i] February 24, 2025 8:19niOcdagi44.00 kgAugust 2024 4:26amBody Temperature 97.6 [degF]97.6-99.0August 2024 4:00amHeart Rate60 /hbs94-241Ukosxg 2024 11:34amRespiratory rate15 /lja59-03Xkrhgh 2024 11:34amOxygen saturation by Pulse imyhagwx97 %95-100gus2024 11:34amBP Dysvaiuq797 mm[Hg]100-140Au2024 11:34amBP Irjkydriz56 mm[Hg]60-100August 2024 11:53qbTlnqvx90 [in_i]March 04, 2025 11:86zfIdjfvs35.00 kgAugus2024 11:17amBMI (Body Mass Index)28.4 kg/h3Ytifez2024 11:17am Advance Directives Advance Directive Response Recorded Date/ Time Advance Directives No December 01 6:14pm Insurance Providers Guarantor Rehan Poole Address mail returned unk un unkContact Info.Home Phone: Coverage Status Update:2024 Payer Group Member ID Coverage Type Subscriber Relationship to Subscriber Effective Date Expiration Date Medicare [id number] Poole Id: [id number] mail returned unk un unk Home Phone: Self Encounters Encounter Location(s) Arrival/Admit Date Discharge/Departure Date Discharge/Departure Disposition Provider(s) Non-patient / Non-visit -[facility] Infect Dis A ugust 2024 7:12am Ammon Huang , MDDischarged Inpatient-[address] [place] [address] 2024 10:17augu2024 12:07pmDischarged to home care or self care (routine discharge)Anjum Beebe Physician/Provider Office Visit-[facility] OrthopedicsAugust 2024 11:08amAugu2024 12:21pmDischarged to home care or self care (routine discharge)Anjum Beebe Physician/Provider Office Visit-[facility] OrthopedicsOctober 2024 2:41pmOctober 2024 3:04pmDischarged to home care or self care (routine discharge)Nishant Ceja , DO Recent Diagnosis Onset Date Admit Date Stasis dermatitis Unknown February 24, 2 025 10:17am Cellulitis of right lower extremity Unknown February 24, 2025 10:17am Avascular necrosis of bone of right hip Unknown March 04, 2025 11:08am Avascular necrosis of left femur Unknown March 04, 2025 11:08am Closed subcapital fracture of right femur Unknow n March 04, 2025 11:08am Rash Unknown March 04 11:08am Right shoulder pain Unknown March 04, 2025 11:08am Status post total hip replacement, right Unknown March 04, 2025 11:08am Avascular necrosis of bone of right hip Unknown May 13, 2025 2:41pm Avascular necrosis of left femur Unknown May 13, 2025 2:41pm Closed subcapital fracture of right femur Unknow n May 13, 2025 2:41pm Rash Unknown May 13 2:41pm Right shoulder pain Unknown April 2:41pm Status post total hip replacement, right Unknown May 13, 2025 2:41pm Functional Status Observation Response Date Recorded Dressing Patient at Baseline February 26, 2025 12:05pm Eating Patient at Baseline February 26, 2025 12:05pm Bathing Patient at Baseline February 26, 2025 12:05pm Disability Status Patient at Baseline February 12:05pm Mental Status Observation Response Date Recorded Cognitive Status Patient at Baseline February 12:05pm Cognitive/Mental Status Assessments Assessments Diagnosis Onset Date Resolution Status Admit Date Stasis dermatitis acuteAugust 2024 10:17amCellulitis of right lower extremitydeletedAugust 2024 10:17amAvascular necrosis of bone of right hipacuteAugust 2024 11:08amAvascular necrosis of left femuracuteAugust 2024 11:08amClosed subcapital fracture of right femuracuteAugust 2024 11:08amRashacuteAugust 2024 11:08amRight shoulder painacuteAugust 2024 11:08amStatus post total hip replacement, rightnoneactiveAugust 2024 11:08amAvascular necrosis of bone of right hipacuteOctober 29th, 2025 2:41pmAvascular necrosis of left femuracuteOctober 2024 2:41pmClosed subcapital fracture of right femuracuteOctober 2024 2:41pmRashacuteOctober 2024 2:41pmRight shoulder painacuteOctober 2024 2:41pmStatus post total hip replacement, rightnoneactiveOctober 2024 2:41pm Plan of Treatment Author Nishant Ceja [facility] 2024 6:54amS/p right GOSIA. Doing well. No complaints Rehan is here for follow-up of left hip AVN. He is doing well in his therapy for his right hip the left hip continues to be an issue. He has issues with weightbearing as well as range of motion of the left hip which continue to limit him significantly in his rehab. He would like to move forward with left total hip arthroplasty for treatment of his Ficat stage III AVN Rehan is a 59-year-old male who presents with left hip AVN. At this juncture we have discussed the findings and diagnosis. Surgical intervention is recommended. Surgical versus non-operative management have been discussed in detail and non-operative management was given as an option and exhausted. The risks of surgical intervention in the form of total joint arthroplasty were given. Pre-operative optimization will be done prior to surgical procedure to limit napoleon-operative risks. I have discussed the planned procedure, how and who performs the procedure, and the personnel involved. We discussed the hospital procedure for total joint replacements. Cardiovascular, pulmonary, and other life-threatening episodes can occur during surgery although there is a low risk of these happening. Surgical risks including bleeding, neurovascular injury, wound closure problems and infection were discussed. Napoleon-operative risks including infection, bleeding, wound healing problems, and need for further surgery were discussed. It was discussed that there is a possibility of blood transfusion with any surgical procedure and the risks involved in receiving a blood transfusion. The surgical procedure including anesthesia, staff, and hospitalization have been discussed in detail. Possibility of, and need for, future bracing or DME use, physical or occupational therapy, mental therapy, rehabilitation, pain management and need for secondary procedures was discussed. There is possibility of component malfunction or wear and tear requiring future procedures. I have warned against smoking and the use of tobacco products due to the risks associated with them, in particular, poor healing. Obtaining or maintaining a healthy BMI was discussed. 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 I have advised to follow all post-operative instructions in order to obtain the best outcome. Informed consent has been verbally affirmed and signed as indicated. Will plan for observation admission for overnight stay with possible inpatient rehab. Patient functions independently walking with cane. There are steps in home. In my medical opinion the patient should stay in the hospital after their total joint arthroplasty. Due to the social situation and/or their medical comorbidities, they should be considered for acute inpatient rehab after the joint replacement surgery. Not doing so would likely increase the risk of complications postoperatively Plan for same-day discharge: Observation admission, next day discharge Antibiotics: Doxycycline 100 mg twice daily x7 days Anticoagulation: ASA 81 mg twice daily Follow-up: 2 weeks postoperatively Rehan presents today about 6 weeks s/p right total hip arthroplasty for femoral neck fracture. He is doing great. He has been progressing well with therapy other than his left hip. His left hip is painful and is limiting his improvement at this time. He has trouble walking on this. Right hip would continue PT. Okay to advance activities as tolerated. Will plan for x-rays at the 6-month anniversary Resolved Is a patient known to me who was set up for left total hip arthroplasty but has some new rash that is formed. This is noted at the day of his planned left total hip arthroplasty on the right lower extremity below the knee but now his body is covered in a petechial rash along with a induration type rash at the left lower extremity which matches the right. I am unsure what exactly is causing this rash. He has steroid cream which she was using for the right lower extremity will give him a steroid by mouth and we will get him in with dermatology to have this evaluated JONATHAN. Will get him back on the schedule once we have this addressed Prednisone 10 day taper was sent into patients pharmacy. We will have the patient follow up in next Sunday. We will send a STAT referral to dermatology. Patient is to follow up 03/13/2025 Note scribed by DEBBIE Arambula, reviewed and amended by myself Nishant Ceja D.O. Author Bridgett Berry [facility] HospitalAuthoredOctober 2024 12:55pmS/p right GOSIA. Doing well. No complaints Rehan is here for follow-up of left hip AVN. He is doing well in his therapy for his right hip the left hip continues to be an issue. He has issues with weightbearing as well as range of motion of the left hip which continue to limit him significantly in his rehab. He would like to move forward with left total hip arthroplasty for treatment of his Ficat stage III AVN Rehan is a 59-year-old male who presents with left hip AVN. At this juncture we have discussed the findings and diagnosis. Surgical intervention is recommended. Surgical versus non-operative management have been discussed in detail and non-operative management was given as an option and exhausted. The risks of surgical intervention in the form of total joint arthroplasty were given. Pre-operative optimization will be done prior to surgical procedure to limit napoleon-operative risks. I have discussed the planned procedure, how and who performs the procedure, and the personnel involved. We discussed the hospital procedure for total joint replacements. Cardiovascular, pulmonary, and other life-threatening episodes can occur during surgery although there is a low risk of these happening. Surgical risks including bleeding, neurovascular injury, wound closure problems and infection were discussed. Napoleon-operative risks including infection, bleeding, wound healing problems, and need for further surgery were discussed. It was discussed that there is a possibility of blood transfusion with any surgical procedure and the risks involved in receiving a blood transfusion. The surgical procedure including anesthesia, staff, and hospitalization have been discussed in detail. Possibility of, and need for, future bracing or DME use, physical or occupational therapy, mental therapy, rehabilitation, pain management and need for secondary procedures was discussed. There is possibility of component malfunction or wear and tear requiring future procedures. I have warned against smoking and the use of tobacco products due to the risks associated with them, in particular, poor healing. Obtaining or maintaining a healthy BMI was discussed. 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 I have advised to follow all post-operative instructions in order to obtain the best outcome. Informed consent has been verbally affirmed and signed as indicated. Will plan for observation admission for overnight stay with possible inpatient rehab. Patient functions independently walking with cane. There are steps in home. In my medical opinion the patient should stay in the hospital after their total joint arthroplasty. Due to the social situation and/or their medical comorbidities, they should be considered for acute inpatient rehab after the joint replacement surgery. Not doing so would likely increase the risk of complications postoperatively Plan for same-day discharge: Observation admission, next day discharge Antibiotics: Doxycycline 100 mg twice daily x7 days Anticoagulation: ASA 81 mg twice daily Follow-up: 2 weeks postoperatively Rehan presents today about 6 weeks s/p right total hip arthroplasty for femoral neck fracture. He is doing great. He has been progressing well with therapy other than his left hip. His left hip is painful and is limiting his improvement at this time. He has trouble walking on this. Right hip would continue PT. Okay to advance activities as tolerated. Will plan for x-rays at the 6-month anniversary Junaid Is a patient known to me who was set up for left total hip arthroplasty but has some new rash that is formed. This is noted at the day of his planned left total hip arthroplasty on the right lower extremity below the knee but now his body is covered in a petechial rash along with a induration type rash at the left lower extremity which matches the right. I am unsure what exactly is causing this rash. He has steroid cream which she was using for the right lower extremity will give him a steroid by mouth and we will get him in with dermatology to have this evaluated JONATHAN. Will get him back on the schedule once we have this addressed Future Tests Future scheduled test information is unavailable Pending Tests Pending diagnostic test information is unavailable Future Visits Future appointment information is unavailable Future Procedures Procedure Name Ordered Date Scheduled Date Admit Status Order February 23, 2025 3:38pm Augu 2024 3:38pm Discharge Order February 25, 2025 1:08pm February 25, 2025 1:08pm Consult to Infectious Diseases February 24, 2025 10:24am February 24, 2025 10:24am Future Medications Future medication information is unavailable Patient Instructions Instruction Admit Date Know your Meds Drugs, Alcohol & [facility] 20[facility] 10:17am Goals Acute Goals Author Authored Date Experience reduced anxiety * Identifies current stressors * Develops effective coping behaviors * Uses support services as appropriateJoanna [facility] 2024 12:08pmRemain free of complications Joanna [facility] 2024 12:08pmUnderstand preop/postop care/sensations * Verbalizes understanding of surgical procedure * Verbalizes understanding of sensations following surgery * Ver[facility] 20[facility] 12:08pmReport pain at tolerable level * Uses pain scale appropriately * Identify options for pain control - Analgesics - Narcotics - Non-medication measuresDay[facility] Center 2024 12:08pmAbsence of imbalanced fluid volume s/s [facility] 2024 12:08pmAbsence of physical injury [facility] 2024 12:08pmAbsence of surgical site infection [facility] 2024 12:08pmMaintain/increase activity levels * Understands factors that may lead to activity intolerance * Helps perform self care activities * Maintains maximum range of motion * Increase/regain muscle mass and strength * Maintains VS WNL during activity * Maintain intact skin integrity Updated: 08/28/2022[facility] 2024 12:08pmExhibit optimal tissue perfusion * Exhibits adequate oxygenation and ventilation * Exhibits adequate cardiac output * Regains stable cardiac rhythm * Maintains optimal activity level * Maintains balanced intake and outputDayton [facility] Medical Center 2024 12:08pmSkin integrity intact [facility] 2024 12:08pmFall Prevention 2022[facility] 2024 12:08pm Preferences Type Detail Treatment Intervention Code Status: Full Code
--- OUTSIDE RECORDS SUMMARY | 2025-05-20 11:05 | XMS_ITS | Encounter Summary ---
Author Organization [facility] Address [address] [place] [address] Care Team Providers Care Church Secretary Name Role Phone Patrice Guadalupe MD Primary Care Provider [phone] Encounter Details DateTypeDepartmentCare Team (Latest Contact Info)Zryaiknuhlz87/26/2025Orders Only [facility] [address] [place] [address] Grabiel Colldao MD [address] [place] [address] Social History Tobacco UseTypesPacks/DayYears UsedDateSmoking Tobacco: [id number] - mokeless Tobacco: FormerChewQuit: 1985Alcohol UseStandard Drinks/Week EjnfubmxUid78 (1 standard drink = 0.6 oz pure alcohol)Humiliation, Afraid, Rape, and Kick questionnaireAnswerDate RecordedWithin the last year, have you been afraid of your partner or ex-partner?No05/27/2023Emotionally AbusedNot on file 05/27/2023hysically AbusedNot on file05/27/2023Sexually AbusedNot on file 05/27/2023Overall Financial Resource Strain (CARDIA)AnswerDate RecordedHow hard is it for you to pay for the very basics like food, housing, medical care, and heating?Somewhat hard05/27/2023UT Safety & EnvironmentAnswerDate RecordedWithin the last year, have you been afraid of your partner or ex-partner?No05/27/2023 Emotionally AbusedNot on file05/27/2023hysically AbusedNot on file05/27/2023 Sexually AbusedNot on file05/27/2023In the past year have you been physically or sexually abused?Unrecognized value05/27/2023TransportationAnswerDate RecordedIn the past 12 months, has lack of transportation kept you from medical appointments or from getting medications?No05/27/2023Lack of Transportation (Non-Medical)Not on file05/27/2023Housing Stability Vital SignAnswerDate RecordedUnable to Pay for Housing in the Last YearNot on file05/27/2023Number of Places Lived in the Last YearNot on file05/27/2023In the last 12 months, was there a time when you did not have a steady place to sleep or slept in ashelter (including now)?No05/27/2023Hunger Vital SignAnswerDate RecordedWithin the past 12 months, you worried that your food would run out before you got the money to buymore.Never true05/27/2023Ran Out of Food in the Last YearNot on file 05/27/2023Sex and Gender InformationValueDate RecordedSex Assigned at BirthMale 04/21/2023 10:36 AM EDTLegal VuxTnks19/28/2022 1:37 PM ESTGender IdentityMale 04/21/2023 10:36 AM EDTSexual OrientationHeterosexual or Vpcjdtjx78/07/2023 10:36 AM EDTdocumented as of this encounter Plan of Treatment Not on file documented as of this encounter Goals GoalPatient Goal TypeAssociated ProblemsRecent ProgressPatient-Stated?Author Follow your diet plan as advised by your tunnel elastic operator lockstitch Leona Shrestha, RN Follow your diet plan as advised by your tunnel elastic operator lockstitch Leona Etienne, RNdocumented as of this encounter Procedures Procedure NamePriorityDate/TimeAssociated DiagnosisCommentsCARDIAC DEVICE CHECK - REMOTE - LOOP RECORDER (ILR)Qmqnqra7005/10/2025 12:00 AM EDTdocumented in this encounter Results * Cardiac device check - Remote loop recorder (ILR) (05/10/2025 12:00 AM EDT) Anatomical RegionLateralityModalityOtherSpecimen (Source)Anatomical Location / LateralityCollection Method / VolumeCollection TimeReceived Time05/10/2025 Narrative Authorizing ProviderResult TypeResult StatusSaharley Collado MDC IMPLANTABLE CARDIAC DEVICE PROCEDURESFinal Result documented in this encounter Visit Diagnoses Not on filedocumented in this encounter Care Teams Team MemberRelationshipSpecialtyStart DateEnd Date Patrice Guadalupe MD [address] [place] [address] PCP - Eyfkktz47/7/23documented as of this encounter
--- OUTSIDE RECORDS SUMMARY | 2025-05-20 11:05 | XMS_ITS | Clinical Summary ---
Author Organization [facility] Address [address] [place] [address] Care Team Providers Care Mule Rider Name Role Phone Patrice Guadalupe MD Primary Care Provider [phone] Allergies Active AllergyReactionsCriticalityNoted DateCommentsPenicillinsAngioedema 04/20/20239372UpdqqbtfyzKepnovgjsffPbzr92/06/2023 Medications MedicationSigDispense QuantityRefillsLast FilledStart DateEnd DateStatus topiramate (Topamax) 100 mg tablet Take 100 mg by mouth in the morning and at bedtime. 100mg in am 200mg in pm Active levETIRAcetam (Keppra) 750 mg tablet Take 750 mg by mouth in the morning and at bedtime.Active aspirin 81 mg EC tablet Take 162 mg by mouth in the morning.Active albuterol 90 mcg/actuation inhaler Inhale 2 puffs every 6 (six) hours if needed for wheezing.Active dutasteride (Avodart) 0.5 mg capsule Take 0.5 mg by mouth in the morning.Active nitroglycerin (Nitrostat) 0.4 mg SL tablet Indications:Other chest painPlace 1 tablet (0.4 mg) under the tongue every 5 (five) minutes if needed for chest pain. May repeat dose every 5 minutes for up to 3 doses total. 100 tablet ctive amitriptyline (Elavil) 50 mg tablet Take 50 mg by mouth in the morning.Active folic acid (Folvite) 1 mg tablet 1 (one) time each day at the same time.Active traZODone (Desyrel) 100 mg tablet Take 100 mg by mouth at bedtime.06/29/2023ctive tiZANidine (Zanaflex) 4 mg tablet Take 4 mg by mouth at bedtime.06/28/2023ctive montelukast (Singulair) 10 mg tablet Take 10 mg by mouth in the morning.Active metoprolol tartrate (Lopressor) 25 mg tablet Indications:Secondary hypertensionTake 1 tablet (25 mg) by mouth in the morning and at bedtime. 60 tablet 10/15/2023ctive levothyroxine (Synthroid, Levoxyl) 125 mcg tablet Take 250 mcg by mouth before breakfast.Active diclofenac (Voltaren) 75 mg EC tablet Take 1 tablet by mouth Twice daily at 6am and 6pm.05/20/2024ctive Flomax 0.4 mg 24 hr capsule Take 0.4 mg by mouth in the morning.Active sildenafil (Viagra) 100 mg tablet Take 100 mg by mouth if needed.Active rimegepant (Nurtec ODT) 75 mg tablet,disintegrating Take 75 mg by mouth 1 (one) time each day at the same time.Active Active Problems ProblemNoted DateDiagnosed DatePure otyltblscowfobsfaisz42/19/2025Osteoarthritis of knee03/05/20242160Lpdpieuvzb81OVID-190 Aajpymhtypdsez80ysphagiaOE (dyspnea on exertion)EdemaEpigastric pain07/17/2023 07/17/2023Groin rrrsxe97Lumbar radicular pain07/17/2023 07/17/2023Other instability, left ankleOther specified congenital deformities of feetain in left ankle and joints of left footneumoniarimary osteoarthritis of left hipSprain of left ankle07/17/2023 07/17/2023Syncope and /02/2024 Assessment & Plan (03/28/2024 10:08 AM EDT): Denies any episodes of syncope or collapse since last visit no seizure activity states overall he is doing well. NSTEMI (non-ST elevated myocardial infarction)05/27/2023drenal insufficiency 04/24/2023Mobitz (type) I (Wenckebach's) atrioventricular block04/20/2023 Assessment & Plan (03/28/2024 10:08 AM EDT): Event monitor reviewed no concerning arrhythmias, heart block or pauses Acute goutHypertensionllergic rhinitis enign prostatic hyperplasia without lower urinary tract rapbmrkf36ervical crgawwlyvdoup12 Diverticulitis of colonFibromyalgia Pommmsl76astroesophageal reflux poxgrxb88 Crobpell95Hypo-osmolality and pmwzufafqxtx21 Intrinsic iaisxd99Irritable bowel vvysgurs37 Low back painMigraine, unspecified, not intractable, without status yulrifzcuzy18Movement omcfzrbf35 Hereditary and idiopathic neuropathy, mhcyzvjvfah05Myoclonus Obstructive sleep apnea bxwwywph82isc displacement, cszqtl00Overweighteripheral venous ztcvcrwemfyph89Restless legs dajreimh05/06/2023 04/20/20233125Nosydss71/06/2023cquired xnfgagpgfqnygb10Recurrent rbznlulp24/08/2017Depressive disorder, not elsewhere nfbkmuglhg68/16/2009 04/20/2023izziness and lljviabyl13eneralized osteoarthrosis, unspecified site Overview (04/20/2023): L4-L5 s/p Neck surgery 2000 Mixed dflajarpydyuxv58 Assessment & Plan (03/28/2024 10:07 AM EDT): 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 Normal LV size and systolic function. LVEF 60%. 2. Normal RV size and systolic function. 3. No significant valvular abnormalities. 4. No color Doppler evidence for atrial septal shunt. RONI to follow PFO closure 11/02/08 11/03/08 CONCLUSIONS Technically difficult study Limited study to assess ASD closure. There is no definite shunt flow through the interatrial septum as detected by contrast & color Doppler. If clinically indicated would do a RONI Personal history of tobacco use, presenting hazards to upuzxa0710/29/2008 04/20/2023 Overview (04/20/2023): Smoke <1PPD x23 years quit for a few years and now currently smokes <1PPD Other chest pain Overview (07/17/2023): Stress Test 2 years ago OK Assessment & Plan (03/28/2024 10:10 AM EDT): Intermittent sharp chest pain while at rest and watching TV, with recent ischemic testing with stress test and echocardiogram no acute concerns or need for any further invasive heart catheter cardiacprocedures. Discussed with patient to discuss with his PCP for other etiologies of his chest pain including possible musculoskeletal, pulmonary, GI Other diseases of lung, not elsewhere drdzdlawdq16enign essential iuungjgwajtp76/16/2009 Assessment & Plan (03/28/2024 10:07 AM EDT): Hypertension is currently well-controlled 132/83 Denies any lightheadedness, dizziness, syncope. Continue metoprolol and isosorbide. Resolved Problems ProblemNoted DateDiagnosed DateResolved HobyXhwqvsovshue58/06/202310/OPD cfbroyiqawzw59/06/202310//04/20235700Tmwqmilyuks27/06/202310/04/2023 Encounters DateTypeDepartmentCare UgqcYtsgxjlfkwq61/26/2025Orders Only [facility] [address] [place] [phone] Grabiel Collado MD 04/27/2025 7:30 AM EDTAncillary Procedure [facility] [address] [place] [phone] Awareness of qkwvoocqmc66/25/2025 2:00 PM EDTAncillary Procedure [facility] [address] [place] [phone] Awareness of iqzohwwxuu25/25/2025Orders Only [facility] [address] [place] [phone] Grabiel Collado MD from Last 3 Months Social History Tobacco UseTypesPacks/DayYears UsedDateSmoking Tobacco: [id number] - mokeless Tobacco: FormerChewQuit: 1985 Tobacco Cessation:Counseling Given: Not Answered Alcohol UseStandard Drinks/LcnjAixsedcsEwf32 (1 standard drink = 0.6 oz pure alcohol)Humiliation, Afraid, Rape, and Kick questionnaireAnswerDate Recorded Within the last year, have you been afraid of your partner or ex-partner?No 05/27/2023Emotionally AbusedNot on file05/27/2023hysically AbusedNot on file 05/27/2023Sexually AbusedNot on file05/27/2023Overall Financial Resource Strain (CARDIA)AnswerDate RecordedHow hard is it for you to pay for the very basics like food, housing, medical care, and heating?Somewhat hard05/27/2023UT Safety & EnvironmentAnswerDate RecordedWithin the last year, have you been afraid of your partner or ex-partner?No05/27/2023Emotionally AbusedNot on file05/27/2023 Physically AbusedNot on file05/27/2023Sexually AbusedNot on file05/27/2023In the past year have you been physically or sexually abused?Unrecognized value 05/27/2023TransportationAnswerDate RecordedIn the past 12 months, has lack of transportation kept you from medical appointments or from getting medications?No 05/27/2023Lack of Transportation (Non-Medical)Not on file05/27/2023Housing Stability Vital SignAnswerDate RecordedUnable to Pay for Housing in the Last YearNot on file05/27/2023Number of Places Lived in the Last YearNot on file 05/27/2023In the last 12 months, was there a time when you did not have a steady place to sleep or slept in ashelter (including now)?No05/27/2023Hunger Vital SignAnswerDate RecordedWithin the past 12 months, you worried that your food would run out before you got the money to buymore.Never true05/27/2023Ran Out of Food in the Last YearNot on file05/27/2023Sex and Gender InformationValueDate RecordedSex Assigned at RyrlvSuor39/07/2023 10:36 AM EDTLegal GibVugn57/28/2022 1:37 PM ESTGender EiaabokfBtqv89/07/2023 10:36 AM EDTSexual Orientation Heterosexual or Gywrhkol72/07/2023 10:36 AM EDT Last Filed Vital Signs Vital SignReadingTime TakenCommentsBlood Fdgeurtr735/75010/01/2024 12:40 PM EDT Ptshu1193 12:40 PM KELNzyupnpewwr82.6 ??C (97.9 ??F)05/28/2023 5:00 PM ESTRespiratory Xpor832810/15/2023 12:13 PM EDTOxygen Gamlephoqy19%10/01/2024 12:40 PM EDTInhaled Oxygen Concentration--Xccjqs512 kg (223 lb)10/01/2024 12:40 PM EDT Lcbooi187.4 cm (6' 1 )10/01/2024 12:40 PM EDTBody Mass Index29.42010/01/2024 12:40 PM EDT Plan of Treatment Health MaintenanceDue DateLast DoneCommentsCT Ggvvlhqqaxvr1965Colonoscopy 1965Colorectal Cancer Uphxcpekf1965FIT-DNA1965FIT1965 FOBT1965Medicare Annual Wellness (AWV)1965 9728Vbhicfcilzmfy1965 Depression Oljxhkadk67/23/1977Adult Isrvmlw7202/04/1987Zoster Vaccines (1 of 2) 2015Pneumococcal Vaccine: Pediatrics (0 to 5 Years) and At-Risk Patients (6 to 64 Years) (2 of 2 - PCV)05/12/201710COVID-19 Vaccine (1 - season)2025Influenza Vaccine (#1)51, 07/02/2021, 05/03/2020, Additional history existsHIB VaccinesAged OutNo longer eligible based on patient's age to complete this topicHPV VaccinesAged OutNo longer eligible based on patient's age to complete this topicIPV VaccinesAged OutNo longer eligible based on patient's age to complete this topicMeningococcal B VaccineAged OutNo longer eligible based on patient's age to complete this topic Meningococcal VaccineAged OutNo longer eligible based on patient's age to complete this topicRotavirus VaccinesAged OutNo longer eligible based on patient's age to complete this topic Goals GoalPatient Goal TypeAssociated ProblemsRecent ProgressPatient-Stated?Author Follow your diet plan as advised by your production recorder Leona Shrestha, RN Follow your diet plan as advised by your production recorder Leona Etienne, [employer] ImplantedTypeAreaManufacturerDevice IdentifierShelf Expiration DateModel / Serial / LotMonitor,Cardiac,Lux,Dxii+[facility] - [id number] - [id number] Implanted:Qty: 1 on 10/15/2023 by Thong Gabriel [facility] HospitalImplantable Loop RecorderBoston Yajmlsqoau05/13/[id number] / [id number] / Procedures Procedure NamePriorityDate/TimeAssociated DiagnosisCommentsCARDIAC DEVICE CHECK CHECK - EYGFWFYetecwl28/27/2025 5:32 PM EDT Awareness of heartbeats CARDIAC DEVICE CHECK - REMOTE - LOOP RECORDER (ILR)Fuzozbx9405/10/2025 12:00 AM EDTCARDIAC DEVICE CHECK CHECK - ZGQSCSIgmrowp55/27/2025 3:13 PM EDT Awareness of heartbeats CARDIAC DEVICE CHECK - REMOTE - LOOP RECORDER (ILR)Izskhuo9503/09/2025 12:00 AM EDTCARDIAC DEVICE CHECK CHECK - EWNTDRFyqgabj16/05/2025 9:51 AM EDT Awareness of heartbeats from Last 3 Months Results * CARDIAC DEVICE CHECK - REMOTE - LOOP RECORDER (ILR) (05/11/2025 5:32 PM EDT) Only the most recent of3 resultswithin the time period is included. Specimen (Source)Anatomical Location / LateralityCollection Method / Volume Collection TimeReceived Time Narrative Authorizing ProviderResult TypeResult StatusBlair Rick MDCV IMPLANTABLE CARDIAC DEVICE PROCEDURESFinal ResultPerforming OrganizationAddressCity/State/ZIP Code Phone Number CPACS * Cardiac device check - Remote loop recorder (ILR) (05/10/2025 12:00 AM EDT) Only the most recent of2 resultswithin the time period is included. Anatomical RegionLateralityModalityOtherSpecimen (Source)Anatomical Location / LateralityCollection Method / VolumeCollection TimeReceived Time05/10/2025 Narrative Authorizing ProviderResult TypeResult StatusSaharley Roberta Collado MDC IMPLANTABLE CARDIAC DEVICE PROCEDURESFinal Result from Last 3 Months Insurance * Guarantor: Rehan Poole LAccount TypeRelation to PatientDate of BirthPhone Billing AddressPersonal/ZacnefXfqw1965 [address] [address] MemberSubscriberPlan / Payer (Effective 2018-Present)Name:Rehan Poole Member ID:[id number] Relation to Subscriber:SelfName:Rehan Poole Subscriber ID:[id number] Payer ID:[id number] Group ID:Not on file Type:Medicare Address: [facility] [id number] Advance Directives * Full Code (Latest Code Status on File) Date ActivatedDate DlegrmpvlwtXjjkrtsa85/12/2023 11:30 PM05/28/2023 7:45 PM * Full Code Date ActivatedDate IoqudgtkyatNlukjljb13/6/2023 7:26 PM10 6:28 PM Care Teams Team MemberRelationshipSpecialtyStart DateEnd Date Patrice Guadalupe MD [address] [facility] [address] [address] PCP - Vtakghk07/7/23
--- OUTSIDE RECORDS SUMMARY | 2025-05-20 11:05 | XMS_ITS | Clinical Summary ---
Author Organization [facility] tem Address [id number] [address] [place] [address] Care Team Providers Care Video Coordinator Name Role Phone Patrice Guadalupe MD Primary Care Provider [phone] Allergies Active AllergyReactionsCriticalityNoted DajvLbyesbebGmxoxrpprzt44/08/2017 Swollen throat Zgzdswwgts44/08/2017 Swollen throat and hives Medications MedicationSigDispense QuantityRefillsLast FilledStart DateEnd DateStatus lisinopril (PRINIVIL,ZESTRIL) 20 mg tablet Take 20 mg by mouth daily.Active tiotropium (SPIRIVA) 18 mcg per inhalation capsule Place 1 capsule into inhaler and inhale once daily.Active levothyroxine (SYNTHROID, LEVOTHROID) 125 MCG tablet Take 125 mcg by mouth daily.Active aspirin 81 mg chewable tablet Chew 81 mg and swallow daily.Active amitriptyline (ELAVIL) 50 mg tablet Take 50 mg by mouth nightly.Active montelukast (SINGULAIR) 10 mg tablet Take 10 mg by mouth nightly.Active albuterol (PROVENTIL HFA;VENTOLIN HFA) 90 mcg/actuation inhaler Inhale 2 puffs every 6 (six) hours as needed for wheezing.Active cetirizine (ZyrTEC) 10 mg tablet Take 10 mg by mouth daily.Active clonazePAM (KlonoPIN) 1 mg tablet Take 1 mg by mouth 3 (three) times a day.Active cholecalciferol, vitamin D3, 5,000 units tablet Take 5,000 Units by mouth 2 (two) times a day.Active carvedilol (COREG) 12.5 mg tablet Take 12.5 mg by mouth 2 (two) times a day with meals.Active albuterol sulfate (PROVENTIL) 2.5 mg/0.5 mL solution for nebulization Inhale 2.5 mg by nebulization every 6 (six) hours as needed.Active mometasone-formoterol (DULERA) 200-5 mcg/actuation inhaler Inhale 2 puffs 2 (two) times a day.Active ipratropium-albuterol (COMBIVENT) 18-103 mcg/actuation inhaler Inhale 2 puffs every 6 (six) hours as needed for wheezing.Active topiramate (TOPAMAX) 50 mg tablet Take 50 mg by mouth 2 (two) times a day.Active Active Problems ProblemNoted DateDiagnosed BwqmOjgxieso43/08/2017Recurrent bjtlaqiu30/08/2017 Migrainous headache without aura07/23/2016COPD (chronic obstructive pulmonary disease)07/23/2016Acquired tejsbckrtskwph58/08/2017Benign essential hypertension 07/23/2016 Social History Tobacco UseTypesPacks/DayYears UsedDateSmoking Tobacco: Every DayCigarettes Alcohol UseStandard Drinks/WeekCommentsNot Asked0 (1 standard drink = 0.6 oz pure alcohol)recently quit drinking in Mar. would drink average 5-8 beers a day ChildcareAnswerDate XmilyhhsNdihircybBjymfkn03/12/2019EmploymentAnswerDate CxfsaliwLlfqvrpkqoUctlixc32/12/2019Purpose - LifeAnswerDate RecordedPurpose and direction in iacaKowhphb72/11/2021Sex and Gender InformationValueDate Recorded Sex Assigned at BirthNot on fileLegal GtqYuvk1002/18/2015 11:37 AM EDTGender IdentityNot on fileSexual OrientationNot on file Last Filed Vital Signs Vital SignReadingTime TakenCommentsBlood Inwvebog047/8407/26/2016 7:55 AM EST Iszxz885507/26/2016 7:55 AM XTGGksgyjsfpyk77.3 ??C (97.3 ??F)07/26/2016 7:55 AM ESTRespiratory Fawf031607/26/2016 7:55 AM ESTOxygen Xkekputyqd56%07/26/2016 7:55 AM ESTInhaled Oxygen Concentration--Xwvwlq51.6 kg (201 lb 15.1 oz)07/26/2016 5:01 AM RIWNezrqw096.4 cm (6' 1 )07/23/2016 5:10 PM ESTBody Mass Index26.64 07/23/2016 5:10 PM EST Plan of Treatment Not on file Medical Devices Not on file Insurance Advance Directives * Full Code (Latest Code Status on File) Date ActivatedDate InactivatedComments07/23/2016 6:19 PM07/26/2016 2:20 PM Care Teams Team MemberRelationshipSpecialtyStart DateEnd Date Patrice Guadalupe MD PCP - General07/23/16
--- OUTSIDE RECORDS SUMMARY | 2025-05-20 11:05 | XMS_ITS | Patient Health Record ---
Author Organization [facility] [place] Address [address] [place] [address] Care Team Providers Care Porter Bath Name Role Phone Michael Lakhani Primary Care Provider Allergies Allergen (clinical drug ingredient) Drug/Non Drug Allergy documented on EMR Reaction Allergy Type Onset Date Status strawberry allergenic extract Evangeline (uncoded) unknown Allergy ActivePenicillinunknownDrug AllergyActive Results Component Value Reference Range Notes US APPENDIX Reviewed date:04/23/2025 12:42:28 PM Interpretation: Performing Lab: Notes/Report: Source Facility: [place] [address] Ultrasound Report Signed Patient: REHAN POOLE MR#: [id number] : 1965 Acct:[id number] Age/Sex: 60 / M ADM Date: 04/22/25 Loc: US Attending Dr: Pee Lakhani M.D. Ordering Physician: Pee Lakhani M.D. Date of Service: 04/22/25 Procedure(s): US appendix Accession Number(s): [id number] cc: Pee Lakhani M.D. [place] [address] Patient Name: REHAN POOLE MRN: [id number] date: 1965 Sex: M Assigned Patient Location: US Current Patient Location: US Accession/Order Number: [id number] Exam Date: 04/22/2025 15:30 Report Date: 04/22/2025 19:19 At the request of: PEE LAKHANI MD Procedure: US appendix Targeted ultrasound right lower quadrant INDICATION: Right lower quadrant pain COMPARISON: None FINDINGS: Peristalsing bowel loops. Normal appendix not visualized. No loculated fluid collection within the dgoak-yw-dmdk. US/US appendix IMPRESSION: Appendix not visualized. Recommend further evaluation as clinically warranted. Impression dictated by: Nikos Rivera M.D. 04/22/2025 7:19 PM Dictation Location: [place] [address] Electronically authenticated by: [id number] Y Date: 04/22/2025 19:19 Dictated By: Nikos Rivera M.D. Signed By: 04/22/251920 DD/ 18 TD/TT: [employer] Lieutenant: CBC AUTO DIFF Reviewed date:12/01/2024 12:48:28 PM Interpretation: Performing Lab: Notes/Report: [facility] , White Blood Count 9.7 4.0-11.0 10 3/uL Red Blood Count4.144.70-6.10 10 6/cVZfnsbuawcd02.214.0-18.0 g/wLAakkcecigs23.2 42.0-54.0 %Mean Corpuscular Luggfr14.180.0-94.0 fLMean Corpuscular Hemoglobin 34.325.9-34.0 pgMean Corpuscular HGB Conc35.329.9-35.2 g/dLRed Cell Distribution Width12.711.0-15.0 %Platelet Swzju563727-428 10 3/uLMean Platelet Volume9.19.5- 13.5 fLNeutrophils Percent Auto64.843.0-75.0 %Lymphocytes Percent Auto26.620.5- 60.0 %Monocytes Percent Auto6.61.7-12.0 %Eosinophils Percent Auto0.70.9-7.0 % Basophils Percent Auto0.30.2-2.0 %Immature Granulocytes Pct Auto1.00.0-0.5 % Neutrophils Absolute Auto6.31.4-6.5 10 3/uLLymphocytes Absolute Auto2.61.2-3.8 10 3/uLMonocytes Absolute Auto0.60.3-0.8 10 3/uLEosinophils Absolute Auto0.10.0- 0.7 10 3/uLBasophils Absolute Auto0.00.0-0.1 10 3/uLImmature Granulocytes Abs Auto0.100.00-0.03 10 3/uLPerforming Lab:see note - [facility] LB PROF 14(COMP METB) Reviewed date:12/01/2024 12:48:28 PM Interpretation: Performing Lab: Notes/Report: [facility] ,Rsqnjm639515-258 mmol/LPotassium3.93.5-5.1 mmol/WNyrwbaxv0485-634 mmol/LCarbon Iwlvcym97.521.0-32.0 mmol/LAnion Gap14.4Mrtjlet8525-047 mg/dLBlood Urea Nitrogen 12.07.0-18.0 mg/dLCreatinine1.070.70-1.30 mg/dLEstimated GFR ( Rehana>60 >=60 mL/min/1.73m 2Estimated GFR (Non- Francy>60>=60 mL/min/1.73m 2BUN Creatinine Ratio11.2Dpdrcoh9.78.5-10.1 mg/dLBilirubin Total0.60.2-1.0 mg/dL Aspartate Amino Xvgxhhsxuxm9659-77 U/LAlanine Utrfejymwazteaet13916-18 U/L Alkaline Ersvlieqlsm40677-827 U/LTotal Protein7.06.4-8.2 g/dLAlbumin Level3.4 3.4-5.0 g/dLGlobulin3.6Albumin Globulin Ratio0.9Performing Lab:see note - [facility] LBProthrombin Time INR Reviewed date:12/01/2024 12:48:28 PM Interpretation: Performing Lab: Notes/Report: [facility] ,Prothrombin Time9.99.0-11.6 secINR0.93 DESIRED INR: 2.0-3.0 CONDITIONS NOT LISTED BELOW 2.5-3.5 FOR PROSTHETIC HEART VALVE REPLACEMENT 2.5-3.5 RECURRENT THROMBOSIS Performing Lab:see noteML - [facility] LBCT PELVIS WO CON Reviewed date:12/01/2024 01:54:46 PM Interpretation: Performing Lab: Notes/Report: Source Facility: [facility]-[address] [place] [address] CT Scan Report Signed Patient: REHAN POOLE MR#: [id number] : 1965 Acct:[id number] Age/Sex: 59 / M ADM Date: 12/01/24 Loc: ER Attending Dr: Ordering Physician: Radha Payton Date of Service: 12/01/24 Procedure(s): CT pelvis wo con Accession Number(s): [id number] cc: Pee Lakhani M.D. [place] [address] Patient Name: REHAN POOLE MRN: [id number] date: 1965 Sex: M Assigned Patient Location: ER Current Patient Location: ER Accession/Order Number: [id number] Exam Date: 12/01/2024 12:55 Report Date: 12/01/2024 13:06 At the request of: RADHA PAYTON MD Procedure: CT pelvis wo con CT PELVIS WITHOUT CONTRAST WITH 3-D RECONSTRUCTIONS CLINICAL DATA: Follow-up right hip fracture COMPARISON: Plain films 12/01/[address] images were obtained through the pelvis. Sagittal, coronal and 3-D volume rendered reconstructions were reviewed. This CT exam was performed using one or more following dose reduction techniques: Automated exposure control, adjustment of the mA and/or kV according to patient size, or use of iterative reconstruction technique. The bony structures are osteopenic. There is narrowing of the joint spaces bilaterally. There is subchondral sclerosis and lucency at both femoral heads with collapse of the articular surfaces. Minor subchondral cystic change and hypertrophy is present at the superior acetabula. There is a subcapital fracture at the right hip, without significant displacement. There is also believed to be fracture along the anterolateral aspect of the femoral head on the left. No other acute pelvic fractures are seen in the field of view. No dislocation is noted. There is minor sclerosis at the SI joints. Postoperative changes with posterior rods and pedicle crews are seen at the lower imaged lumbar spine. There is a right hip joint effusion. No hematoma is identified. There are small inguinal lymph nodes. There is an under distended urinary bladder with apparent wall thickening. No pelvic ascites is seen. CT/CT pelvis wo con IMPRESSION: DEGENERATIVE CHANGES AT BOTH HIPS WITH SUSPECTED UNDERLYING AVASCULAR NECROSIS. BILATERAL PROXIMAL FEMUR FRACTURES, RIGHT WORSE THAN LEFT. Impression dictated by: Halie Traylor M.D. 12/01/2024 1:06 PM Dictation Location: [place] [address] Electronically authenticated by: [id number] Y Date: 12/01/2024 13:06 Dictated By: Halie Traylor M.D. Signed By: 12/01/24 1309 DD/ 1306 TD/TT: [employer] Lieutenant:XR femur RT 2V Reviewed date:12/01/2024 12:48:28 PM Interpretation: Performing Lab: Notes/Report: Source Facility: [place] [address] XRay Report Signed Patient: REHAN POOLE MR#: [id number] : 1965 Acct:[id number] Age/Sex: 59 / M ADM Date: 12/01/24 Loc: ER Attending Dr: Ordering Physician: Radha Payton Date of Service: 12/01/24 Procedure(s): XR femur RT 2V Accession Number(s): [id number] cc: Pee Lakhani M.D.; Radha Payton [place] [address] Patient Name: REHAN POOLE MRN: [id number] date: 1965 Sex: M Assigned Patient Location: ER Current Patient Location: ER Accession/Order Number: [id number] Exam Date: 12/01/2024 11:12 Report Date: 12/01/2024 11:14 At the request of: RADHA PAYTON MD Procedure: XR femur RT 2V XR femur RT 2V 12/01/2024 11:03 AM SIGNS AND SYMPTOMS: pain severe PROTOCOL: Frontal and lateral graphs of the right femur COMPARISON: 10/23/2022 FINDINGS: There has been interval collapse of the articular surface of the femoral head. There is a fracture line traversing the head of the femur into the neck of the femur which is vertically oriented. The femur is otherwise intact. There is narrowing of the joint spaces of the right hip and right knee. The visualized right hemipelvis is grossly intact. XR/XR femur RT 2V IMPRESSION: Collapse of the articular surface of the femoral head, new compared to the prior exam with a vertically oriented fracture through the head and neck of the right proximal femur. Impression dictated by: Reinaldo Yeung M.D. 12/01/2024 11:14 AM Dictation Location: [place] [address] Electronically authenticated by: [id number] Y Date: 12/01/2024 11:14 Dictated By: Reinaldo Yeung M.D. Signed By: 12/01/24 1117 DD/ 1114 TD/TT: [employer] Lieutenant:XR hip RT 2V w/ pelvis Reviewed date:12/01/2024 12:48:28 PM Interpretation: Performing Lab: Notes/Report: Source Facility: [place] [address] XRay Report Signed Patient: REHAN POOLE MR#: [id number] : 1965 Acct:[id number] Age/Sex: 59 / M ADM Date: 12/01/24 Loc: ER Attending Dr: Ordering Physician: Radha Payton Date of Service: 12/01/24 Procedure(s): XR hip RT 2V w/ pelvis Accession Number(s): [id number] cc: Pee Lakhani M.D.; Radha Payton [place] [id number] Patient Name: REHAN POOLE MRN: [id number] date: 1965 Sex: M Assigned Patient Location: ER Current Patient Location: ER Accession/Order Number: [id number] Exam Date: 12/01/2024 11:14 Report Date: 12/01/2024 11:16 At the request of: RADHA PAYTON MD Procedure: XR hip RT 2V w/ pelvis XR hip RT 2V w/ pelvis 12/01/2024 11:03 AM SIGNS AND SYMPTOMS: pain in right hip PROTOCOL: Frontal and frog-leg views of the right femur COMPARISON: 10/23/2022 FINDINGS: There has been interval collapse of the articular surface of the femoral head. There is a fracture line traversing the head of the femur into the neck of the femur which is vertically oriented. There is narrowing of the joint spaces of the right hip. The bony ring of the pelvis is intact. There is partial collapse of the articular surface of the left femur which is chronic. Vascular calcifications are noted in the pelvis. XR/XR hip RT 2V w/ pelvis IMPRESSION: Collapse of the articular surface of the femoral head, new compared to the prior exam with a vertically oriented fracture through the head and neck of the right proximal femur. There is partial collapse of the articular surface of the left femur which is chronic. Impression dictated by: Reinaldo Yeung M.D. 12/01/2024 11:16 AM [facility]ictation [facility] Electronically authenticated by: [id number] Y Date: 12/01/2024 11:16 Dictated By: Reinaldo Yeung M.D. Signed By: 12/01/24 1119 DD/ 1116 TD/TT: [employer] Lieutenant:Erythrocyte Sedimentation Rate Reviewed date:12/01/2024 12:48:28 PM Interpretation: Performing Lab: Notes/Report: [facility] ,Erythrocyte Sedimentation Rate46<=20 mm/hrPerforming Lab:see noteML - [facility] LBCRP Reviewed date:12/01/2024 12:48:28 PM Interpretation: Performing Lab: Notes/Report: [facility] ,C Reactive Protein2.11<=0.50 mg/dLPerforming Lab:see noteML - [facility] LB Reason For Referral No Information Medications Medication SIG (Take, Route, Frequency, Duration) Notes Start Date End Date Status Metoprolol Tartrate 50 MG 1 tablet with food Orally Twice a day; Duration: 30 day(s) 06/04/2023UnknownOndansetron 4 MG1 tablet on the tongue and allow to dissolve Orally wpyCVS4112/30/2024UnknowntiZANidine HCl 4 MG2 tablets Orally at bedtime; Duration: 30 days01/11/2024UnknownTamsulosin HCl 0.4 MG1 capsule Orally Once a day; Duration: 30 days03/17/2025UnknownAlbuterol Sulfate (2.5 MG/3ML) 0.083%3 mL Inhalation four times a day PRN; Duration: 30 daysPRNUnknownIpratropium- Albuterol 0.5-2.5 (3) MG/3ML3 mL as needed Inhalation every 6 hrs; Duration: 30 daysPRNUnknownTopamax 100 MG1 tablet in the AM Orally and 2 tablets at bedtime; Duration: 30 daysActiveLevothyroxine Sodium 125 MCG2 capsule in the morning on an empty stomach Orally Once a day; Duration: 90 daysActiveIsosorbide Mononitrate ER 30 MGtake 1 tablet by mouth every morning Orally Once a day; Duration: 30 daysUnknownViagra 100 MG1 tablet as needed Orally Once a day; Duration: 30 daysPRNUnknownHyoscyamine Sulfate 0.125 MG1-2 tabs SL SL every 4 hrs PRN abd pain5ActiveAspirin 81 MG1 tablet Orally Once a day; Duration: 30 daysUnknownVentolin HFA 108 (90 Base) MCG/ACT2 puff as needed Inhalation four times daily PRN; Duration: 30 daysPRNUnknownAtorvastatin Calcium 10 MG1 tablet Orally Once a day; Duration: 30 days05/20/2024UnknownKeppra 750 MG 1 tablet Orally BID; Duration: 30 daysUnknownDiclofenac Sodium 75 MG1 tablet as needed Orally Twice a day; Duration: 30 days04/21/2025Unknown Social History Tobacco Use: Social History Observation Description Date Details (start date - stop date) Former Smoker 07/16/1982 - 06/15/2021 Tobacco Use/Smoking Question Answer Notes Patient is a former smoker When did you start smoking?07/16/1982When did you stop smoking?06/15/2021How long has it been since you last smoked?1-5 yearsAdditional Findings: Tobacco Non-UserCurrent non-smokerAlcohol Screen (Audit-C) Question Answer Notes Did you have a drink containing alcohol in the p ast year? No Dthbed4ZoolzmezjszrtmFpwsnkfoSIROT-X (Standard) Question Answer Notes Did you have a drink containing alcohol in the p ast year? Yes How often did you have a drink containing alcohol in the past year?Never (0 point)How many drinks did you have on a typical day when you were drinking in the past year?7 to 9 drinks (3 points)How often did you have six or more drinks on one occasion in the past year?4 or more times a week (4 points)Points7 InterpretationPositive Problems Problem Type SNOMED Code ICD Code Onset Dates Problem Status W/U Status Risk Notes Problem Essential hypertension (60977502 ) Essential (primary) hypertension (I10) ActiveconfirmedProblemSeizure (68020524)Unspecified convulsions (R56.9)Active confirmedProblemLow back pain (313943790)Low back pain (M54.5)Activeconfirmed ProblemHypothyroidism (67473765)Hypothyroidism, unspecified (E03.9)Active confirmedProblemObstructive sleep apnea syndrome (disorder) (77095144) Obstructive sleep apnea (adult) (pediatric) (G47.33)ActiveconfirmedProblem Coronavirus infection (550080327)Coronavirus infection, unspecified (B34.2) ActiveconfirmedProblemHypo-osmolality and or hyponatremia (424051396)Hypo- osmolality and hyponatremia (E87.1)ActiveconfirmedProblemMyoclonus (28875289) Myoclonus (G25.3)ActiveconfirmedProblemMigraine without aura, not refractory (disorder) (854542635)Migraine, unspecified, not intractable, without status migrainosus (G43.909)ActiveconfirmedProblemHereditary disorder of nervous system (565166561)Hereditary and idiopathic neuropathy, unspecified (G60.9)Active confirmedProblemAcute exacerbation of chronic obstructive airways disease (584199045)Chronic obstructive pulmonary disease with (acute) exacerbation (J44.1)ActiveconfirmedProblemAnkle instability (803301)Other instability, left ankle (M25.372)ActiveconfirmedProblemArthralgia of the ankle and/or foot (447781662)Pain in left ankle and joints of left foot (M25.572)Activeconfirmed ProblemDisplacement of lumbar intervertebral disc without myelopathy (15104515) Other intervertebral disc displacement, lumbar region (M51.26)Activeconfirmed ProblemCervical radiculopathy (87072481)Radiculopathy, cervical region (M54.12) ActiveconfirmedProblemNeuralgia (60321312)Neuralgia and neuritis, unspecified (M79.2)ActiveconfirmedProblemFibromyalgia (571086542)Fibromyalgia (M79.7)Active 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) (09870367385460529)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)Active confirmedProblemShortness of breath (938577083)Shortness of breath (R06.02) ActiveconfirmedProblemSnoring (78661435)Snoring (R06.83)ActiveconfirmedProblem Dysphagia (49864919)Dysphagia, unspecified (R13.10)ActiveconfirmedProblem Weakness (14223365)Weakness (R53.1)ActiveconfirmedProblemSprain of left ankle (43116578321724415)Sprain of other ligament of left ankle, initial encounter (S93.492A)ActiveconfirmedProblemChest pain (19353591)Chest pain (R07.9)Active confirmedProblemFatigue (74113684)Fatigue (R53.83)ActiveconfirmedProblemMigraine variant with headache (disorder) (253575585)Migraine headache (G43.909)Active confirmedProblemHyperlipidemia (68645938)Hyperlipidemia (E78.5)Activeconfirmed ProblemHypertension (77430455)Hypertension (I10)ActiveconfirmedProblem Gastroesophageal reflux disease (517780117)GERD (gastroesophageal reflux disease) (K21.9)ActiveconfirmedProblemCervical radiculopathy (94450576)Cervical radiculopathy (M54.12)ActiveconfirmedProblemHypothyroidism (47718449) Hypothyroidism (E03.9)ActiveconfirmedProblemPalpitations (67598234)Palpitation (R00.2)ActiveconfirmedProblemRestless legs syndrome (71572344)Restless leg syndrome (G25.81)ActiveconfirmedProblemPneumonia (473903360)Pneumonia (J18.9) ActiveconfirmedProblemEdema (68127590)Edema (R60.9)ActiveconfirmedProblem Hypothyroid (23186841)Hypothyroid (E03.9)ActiveconfirmedProblemPeripheral venous insufficiency (21836783)Venous insufficiency (I87.2)ActiveconfirmedProblem Peripheral neuropathy (750840826)Peripheral neuropathy (G62.9)Activeconfirmed ProblemGout (45445246)Gout (M10.9)ActiveconfirmedProblemDyspnea (192228905) Dyspnea (R06.00)ActiveconfirmedProblemObstructive sleep apnea (88652011) Obstructive sleep apnea (G47.33)ActiveconfirmedProblemSyncope (822253659)Syncope (R55)ActiveconfirmedProblemHyponatremia (77343787)Hyponatremia (E87.1)Active confirmedProblemEsophageal reflux (113598082)Esophageal reflux (K21.9)Active confirmedProblemOsteoarthritis of knee (374684204)Knee osteoarthritis (M17.9) ActiveconfirmedProblemMigraine (93639618)Migraine (G43.909)Activeconfirmed ProblemBenign prostatic hyperplasia (885574031)BPH (benign prostatic hyperplasia) (N40.0)ActiveconfirmedProblemEpigastric pain (45149042)Epigastric pain (R10.13)ActiveconfirmedProblemGlaucoma (72875187)Glaucoma (H40.9)Active confirmedProblemIrritable bowel syndrome (09502649)IBS (irritable bowel syndrome) (K58.9)ActiveconfirmedProblemAllergic rhinitis (78863008)Allergic rhinitis (J30.9)ActiveconfirmedProblemAcute exacerbation of chronic obstructive airways disease (901169525)COPD exacerbation (J44.1)ActiveconfirmedProblem Prolapsed lumbar intervertebral disc (948958085)Lumbar disc herniation (M51.26) ActiveconfirmedProblemRight lower quadrant pain (649072633)Right lower quadrant abdominal pain (R10.31)ActiveconfirmedProblemDysphagia (63914956)Dysphagia (R13.10)ActiveconfirmedProblemAcquired hypothyroidism (143803970)Acquired hypothyroidism (E03.9)ActiveconfirmedProblemLocalized, primary osteoarthritis of the pelvic region and thigh (808958011)Primary osteoarthritis of left hip (M16.12)ActiveconfirmedProblemDiverticulitis (73983142)Diverticulitis (K57.92) ActiveconfirmedProblemLumbar radicular pain (3376911984)Lumbar radicular pain (M54.16)ActiveconfirmedProblemAlcoholism (9860515)Alcoholism (F10.20)Active confirmedProblemNear syncope (696017164)Near syncope (R55)ActiveconfirmedProblem Seizure disorder (323228476)Seizure disorder (G40.909)ActiveconfirmedProblem Fibromyalgia (685952412)Fibromyalgia (M79.7)ActiveconfirmedProblemDisplacement of lumbar intervertebral disc without myelopathy (55524047)Herniated lumbar disc without myelopathy (M51.26)ActiveconfirmedProblemIntrinsic asthma (768768204) Intrinsic asthma (J45.909)ActiveconfirmedProblemOverweight (705739262)Over weight (E66.3)ActiveconfirmedProblemMovement disorder (10998581)Movement disorder (G25.9)ActiveconfirmedProblemDiverticulitis of colon (954388492)Acute diverticulitis (K57.92)ActiveconfirmedProblemAcute gout (857329252)Acute gout (M10.9)ActiveconfirmedProblemIron deficiency anemia (14558726)Fe deficiency anemia (D50.9)ActiveconfirmedProblemGroin strain (337595204)Groin strain (S76.219A)ActiveconfirmedProblemAlcohol dependence (72960019)Alcohol dependence (F10.20)ActiveconfirmedProblemPeripheral neuropathy (005105386)Neuropathy, peripheral (G62.9)ActiveconfirmedProblemClosed fracture of neck of femur (312683926)Fracture of right hip (S72.001A)ActiveconfirmedProblemDisplacement of lumbar intervertebral disc without myelopathy (30041342)Disc displacement, lumbar (M51.26)ActiveconfirmedProblemGroin strain (427287097)Groin strain, right, initial encounter (S76.211A)ActiveconfirmedProblemGastroesophageal reflux disease (disorder) (105623106)Chronic GERD (K21.9)ActiveconfirmedProblem Leukocytosis (249998473)Elevated WBCs (D72.829)ActiveconfirmedProblemEssential hypertension (52825912)BP (high blood pressure) (I10)ActiveconfirmedProblem Benign prostatic hypertrophy without outflow obstruction (465602763)Benign prostatic hyperplasia without lower urinary tract symptoms (N40.0)Active confirmedProblemMalnutrition of moderate degree (Correa: 60% to less than 75% of standard weight) (69209871)Moderate protein malnutrition (E44.0)Activeconfirmed ProblemSecond degree atrioventricular block (267055410)2nd degree AV block (I44.1)ActiveconfirmedProblemDisease caused by Severe acute respiratory syndrome coronavirus 2 (disorder) (437540227)COVID-19 virus infection (U07.1)Active confirmedProblemHeadache (63975106)Headache, unspecified (R51.9)Activeconfirmed ProblemLow back pain (516606834)Low back pain, unspecified (M54.50)Active confirmed Vital Signs Temperature 98.7 degrees Fahrenheit 11/17/2024 Blood pressure gmohgyhrt61 mm Hg04/22/20251980Ftgdbf59 in04/22/2025lood pressure yldvebna686 mm Hg04/22/20257537Uzjfrc009 lbs1MI27.04 kg/m204/22/2025 Encounters Encounter Location Date Provider Diagnosis [facility] [address] [facility] [place] [address] 11/06/2024 Michael Hoy Acute bronchitis, unspecified organism J20.9 [facility] [address] [facility] [place] [address] 11/24/2024 Michael Hoy Groin strain, right, initial encounter S76.211A [facility] [address] [facility] [place] [address] 12/23/2024 Michael Hoy Edema R60.9 [facility] [address] [facility] [place] [address] 02/10/2025 Michael Hoy Gastroenteritis K52. 9 ; Essential (primary) hypertension I10 ; Obstructive sleep apnea (adult) (pediatric) G47.33 ; Obstructive sleep apnea G47.33 and COPD exacerbation J44.1 [facility] [address] [facility] [place] [address] 04/22/2025 Michael Hoy Right lower quadrant abdominal pain R10.31 [facility] [address] [facility] [place] [address] 12/30/2024 Michael Hoy Gastroenteritis K52. [address] [facility] [address] [facility] [place] [address] 11/17/2024 Michael Hoy Acute bronchitis, unspecified organism J20.9 [facility] [address] [facility] [place] [address] 05/20/2024 Michael Hoy Lumbar disc herniati on M51.26 [facility] [address] [place] [address] 11/14/2024 Michael Hoy [facility] [facility] [place] [address] 03/17/2025Doug HoyEssential (primary) hypertension [facility] [facility] [place] [place] [address]/07/2025Doug Hoy Unspecified convulsions R56.9 ; BP (high blood pressure) I10 ; Hypothyroid E03.9 ; Screening for prostate cancer Z12.5 and Screening for colon cancer Z12.11 [facility] [facility] [place] [address] 04/23/2025[facility]oyBV[facility] [facility] [place] [address]/29/2025Doug HoyUnspecified convulsions R56.9 Assessments Encounter Date Diagnosis (ICD Code) Assessment Notes Treatment Notes Treatment Clinical Notes Section Notes 11/06/2024 Acute bronchitis, unspecified or ganism (ICD-10 - J20.9) Rest and drink more liquids, especially water. You may use a humidifier or vaporizer to help keep the drainage moist. Efzi-xpw-cujqepw Nasal Saline may help the stuffy and runny nose. Use Ibuprofen and or Tylenol as needed for fever, chills, body aches or pain. Children 5 years old should not be given pizw-zlj-ehdmbmi cough and cold medications such as guaifenesin and dextromethorphan. If you're over age 5, you may try tyyi-xau-nzissrf cold medications such as guaifenesin and dextromethorphan, or multi-symptom cold reliever such as Dayquil to help reduce the symptoms. Antibiotics have been pre scribed. You should take these until completed and follow the directions. Antibiotics can sometimescause upset stomach, and in rare cases, serious allergic reactions or serious gastrointestinal problems. If you start having severe abdominal pain, severe vomiting, or bloody diarrhea, you should be r eevaluated by your physician or urgent care immediately. Follow up with your Primary Care Provider or return to clinic if symptoms do not improve within 3-5 days. If you develop severe symptoms such as shortness of breath, repeated vomiting, coughing up blood, or chest pain you should go to the emergency room or call [id number] bronchitis, unspecified organism (ICD-10 - J20.9)Rest and drink more liquids, especially water. You may use a humidifier or vaporizer to help keep the drainage moist. Krtr-zgx-lzxiujz Nasal Saline may help the stuffy and runny nose. Use Ibuprofen and or Tylenol as needed for fever, chills, body aches or pain. Children 5 years old should not be given edvg-eca-oytwxqd cough and cold medications such as guaifenesin and dextromethorphan. If you're o boni age 5, you may try diva-wuq-vtjwkxa cold medications such as guaifenesin and dextromethorphan, or multi-symptom cold reliever such as Dayquil to help reduce the symptoms. Antibiotics have been prescribed. You should take these until completed and follow the directions. Antibiotics can sometimescause upset stomach, and in rare cases, serious allergic reactions or serious gastrointestinal problems. If you start having severe abdominal pain, severe vomiting, or bloody diarrhea, you should be reevaluated by your physician or urgent care immediately. Follow up with your Primary Care Provider or return to clinic if symptoms do not improve within 3-5 days. If you develop severe symptoms such as shortness of breath, repeated vomiting, coughing up blood, or chest pain you should go to the emergency room or call [phone] Soha, initial encounter (ICD-10 - S76.211A)12/23/2024Edema (ICD-10 - R60.9)12/30/2024Gastroenteritis (ICD-10 - K52.9)Get plenty of rest. Stay hydrated by sucking on ice chips or taking small sips of water. You can also try drinking clear soda, clear broths or noncaffeinated sports drinks. Stop eating solid foods for a few hours to let your stomach settle. East back into eating by eating bland, aiht-ed-uzjqbw foods like crackers, toast, gelatin, bananas, rice and chicken. Try to avoid foods/substances including dairy products, caffeine, alcohol, nicotine and fatty or highly seasoned foods. Medications such as i buprofen or tylenol can make your stomach more upset, so use sparingly if at all. Also avoid qypd-ybt-kwjzfel anti-diarrheal medications because it can make it harder for your body to eliminate the virus.02/10/2025Gastroenteritis (ICD-10 - K52.9)02/10/2025Essential (primary) hypertension (ICD-10 - I10)Cleared for OR 04/22/2025Right lower quadrant abdominal pain (ICD-10 - R10.31)05/20/2024Lumbar disc herniation (ICD-10 - M51.26)03/17/2025Essential (primary) hypertension (ICD-10 - I10)04/21/2025Unspecified convulsions (ICD-10 - R56.9)05/13/2025 Unspecified convulsions (ICD-10 - R56.9)04/21/2025P (high blood pressure) (ICD- 10 - I10)02/10/2025Obstructive sleep apnea (adult) (pediatric) (ICD-10 - G47.33) 02/10/2025Obstructive sleep apnea (ICD-10 - G47.33)04/21/2025Hypothyroid (ICD-10 - E03.9)04/21/2025Screening for prostate cancer (ICD-10 - Z12.5)02/10/2025OPD exacerbation (ICD-10 - J44.1)04/21/2025Screening for colon cancer (ICD-10 - Z12.11) Plan Of Treatment Pending Test Test Name Order Date Holter Test 01/01/2023 XR Cervical Spine (4> views) 10/23/2022 XR Lumbar Spine (4-5 views) 10/23/2022 US Lower Extremity RT 06/29/[address] AP Pelvis, ST AP Hip/Lat 50 12 10/23/2022 CBC 04/21/2025 FECAL OCCULT BLOOD 04/21/2025 Sleep study - Diagnostic Polysonogram CMP - Comprehensive Metabolic Panel 01/2025 GLYCOHEMOGLOBIN A1C 04/21/2025 LIPID PROFILE 04/21/2025 MRI LSPINE WO CON 10/25/2022 MRI LSPINE WO CON 12/06/2022 XR HIPS J LUIS 3_4V WO PELVIS 01/11/2024 XR KNEE LT 3V 01/11/2024 XR KNEE RT 3V 01/11/2024 XR LSPINE 2_3 VIEWS 01/11/2024 THYROID PANEL (T4/TSH/FREE T3) ECHOCARDIO M/2D COMPLETE 01/01/2023 PSA, SCREENING 04/21/2025 Next Appt Details Provider Name:Michael Hopkins Anayeli, 10:45:00 AM, [address] [place], [address], Insurance Providers Payer Name Payer Address Payer Phone Subscriber Number Group Number Insured Name Patient Relationship to Insured Coverage Start Date Coverage End Date [place] [address] [place] [address] [id number] Dontrell Poole - patient is the [id number] 2018 Medications Administered Medication Instructions Date of Administration Dosage Notes Dexamethasone, 4mg/mL mgKenalog-40020 mg120 mgKetorolac Zbdvpehjdbje86/10/2023 60 mgtoradol 60 mgKetorolac Sizxnmufmhad77/19/695727 bd14Dwfjctgrz Tromethamine 0 thQtnytyi07/10/224804 mg60 mgOrphenadrine Thyhqac820 mg60 Medical (General) History Medical History History ICD Code Herniated lumbar disc without myelopathy M51.26 Obstructive sleep apnea (adult) (pediatr ic) G47.33 Dysphagia, unspecified R13.10 Coronavirus infection, unspecified B34.2 Radiculopathy, cervical region M54.12 Low back pain M54.5 Benign prostatic hyperplasia without low er urinary tract symptoms N40.0 Hypo-osmolality and hyponatremia E87.1 Unspecified convulsions R56.9 Hypothyroidism, unspecified E03.9 Chronic obstructive pulmonary disease wi th (acute) exacerbation J44.1 Restless leg syndrome G25.81 Peripheral neuropathy G62.9 Venous insufficiency I87.2 Migraine, unspecified, not intractable, without status migrainosus G43.909 Diverticulitis K57.92 Glaucoma H40.9 Fibromyalgia M79.7 Chronic GERD K21.9 Acute gout M10.9 Essential (primary) hypertension I10 IBS (irritable bowel syndrome) K58.9 Alcohol dependence F10.20 Lumbar disc herniation M51.26 Edema R60.9 Obstructive sleep apnea G47.33 Pneumonia J18.9 Dysphagia R13.10 COVID-19 virus infection U07.1 Over weight E66.3 Epigastric pain R10.13 Cervical radiculopathy M54.12 Dyspnea R06.00 Low back pain, unspecified M54.50 BPH (benign prostatic hyperplasia) N40.0 Hyponatremia E87.1 Seizure disorder G40.909 Myoclonus G25.3 Hypothyroidism E03.9 Chronic obstructive pulmonary disease wi th (acute) exacerbation J44.1 Headache, unspecified R51.9 Movement disorder G25.9 Neuropathy, peripheral G62.9 Edema R60.9 Venous insufficiency I87.2 Migraine headache G43.909 Acute diverticulitis K57.92 Allergic rhinitis J30.9 Intrinsic asthma J45.909 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 Glaucoma H40.9 Fatigue R53.83 Fibromyalgia M79.7 GERD (gastroesophageal reflux disease) K 21.9 Gout M10.9 Alcoholism F10.20 Hypertension I10 Esophageal reflux K21.9 IBS (irritable bowel syndrome) K58.9 closed subcapital fracture of right femu r cellulitis of the right lower extremitySurgical History Surgery Date(Month/Year) Steel Plates in Back 2011 Mesh in Heart 2000 cribiform implant 2008 cataract excisional biopsy sebaceous cyst right c hest wall 12/26/2017 Loop recorder 10/2023 Right hip replacement 2024 Hospitalization History Reason Date(Month/Year) Chest Pain 05/2023 Syncope 04/2023 Fall 11/2022 Chest Pain 12/2021 Bronchitis 03/2022
--- OUTSIDE RECORDS SUMMARY | 2025-05-20 11:05 | XMS_ITS | Clinical Summary ---
Author Organization [facility] Healthcare Address [address] [place] [address] Care Team Providers Care Ultrasonographer Name Role Phone Unavailable Primary Care Provider Unavailabl e Allergies Active AllergyReactionsCriticalityNoted DateCommentsPenicillinsAngioedema, Swelling,Rranigh9610/29/2008 Swollen throat Medications MedicationSigDispense QuantityRefillsLast FilledStart DateEnd DateStatus albuterol (2.5 MG/3ML) 0.083% nebulizer solution 3 mL Inhalation four times a day PRN for 30 daysActive aspirin 81 MG chewable tablet 81 mg 1 (one) time each day at the same timeActive atorvastatin (Lipitor) 10 MG tablet Take 10 mg by mouth DailyActive diclofenac (Voltaren) 75 MG EC tablet Take 75 mg by mouth 2 (two) times a day as neededActive isosorbide mononitrate ER (Imdur) 30 MG 24 hr tablet Take 30 mg by mouth in the morning.Active levothyroxine (Synthroid, Levoxyl) 125 MCG tablet TAKE 2 TABLETS BY MOUTH IN THE MORNING ON AN EMPTY STOMACHActive metoprolol tartrate (Lopressor) 50 MG tablet Take 50 mg by mouth in the morning and 50 mg in the evening. Take with meals. Active predniSONE (Deltasone) 5 MG tablet TAKE 5 TABLETS BY MOUTH DAILY FOR 2 DAYS, then TAKE 4 TABLETS BY MOUTH DAILY FOR 2 DAYS, then TAKE 3 TABLETS BY MOUTH DAILY FOR 2 DAYS, then TAKE 2 TABLETS BY MOUTH DAILY FOR 2 DAYS, then TAKE 1 TABLET BY MOUTH DAILY FOR 2 DAYS03/04/2025 Active tamsulosin (Flomax) 0.4 MG 24 hr capsule Take 0.4 mg by mouth DailyActive tiZANidine (Zanaflex) 4 MG tablet TAKE 2 TABLETS BY MOUTH EVERY DAY AT QNJREPE90/01/2025Active Topamax 100 MG tablet 1 tablet in the AM Orally and 2 tablets at bedtime for 30 daysActive ivermectin (Stromectol) 3 MG tablet Indications:Rash and other nonspecific skin eruptionTake 6 tablets today and repeat in 1 week 6 tablet 5Active triamcinolone (Kenalog) 0.1 % ointment Indications:Stasis dermatitis of both legsApply (1g) to affected areas (legs/arms), up to twice a day when flared, do not use one the face, groin, or underarms, 30 day supply 453.6 g 5Active triamcinolone (Kenalog) 0.1 % cream Indications:Rash and other nonspecific skin eruptionApply (1g) to affected areas (legs/arms), up to twice a day when flared, do not use one the face, groin, or underarms, 30 day supply 454 g 51Discontinued Active Problems No known active problems Encounters DateTypeDepartmentCare UxsgNdhgrllhsdl13/10/2025 11:20 AM EDTOffice Visit [facility] [address] [place] [address] Katie Rosen PA Stasis dermatitis of both legs (Primary Dx); Encounter for removal of sutures; Rash and other nonspecific skin /10/2025amboo flowsheet [facility] [address] [place] [address] Katie Rosen PA 04/24/20255769Goxazj69/08/2025Results Follow-Up [facility] [address] [place] [address] Katie Rosen PA Dermatopathology exam04/13/2025 11:10 AM EDTOffice Visit [facility] [address] [place] [address] Katie Rosen PA Rash and other nonspecific skin idsuvsur95/29/2025amboo flowsheet [facility] [address] [place] [address] Katie Rosen PA 04/13/20250255Lmzmad20/25/2025Telephone [facility] [place] [facility] [address] [place] [address] Liliya Mayfield LPN Care Xwkovbrinmyn31/22/2025 12:20 PM EDTOffice Visit [facility] [address] [place] [address] Katie Rosen PA Rash and other nonspecific skin eruption (Primary Dx)03/06/2025amboo flowsheet [facility] [address] [place] [address] Katie Rosen PA 03/06/2025Travelfrom Last 3 Months Social History Tobacco UseTypesPacks/DayYears UsedDateSmoking Tobacco: FormerCigarettes Smokeless Tobacco: Never Tobacco Cessation:Counseling Given: Not Answered Alcohol UseStandard Drinks/WeekCommentsYes0 (1 standard drink = 0.6 oz pure alcohol)Sex and Gender InformationValueDate RecordedSex Assigned at BirthNot on fileLegal KspHuqu2111/13/2022 8:33 PM EDTGender IdentityNot on fileSexual OrientationNot on file Last Filed Vital Signs Vital SignReadingTime TakenCommentsBlood Kzoywyxi416/8428004/25/2022 12:00 PM EDT Pulse--Temperature--Respiratory Rate--Oxygen Saturation--Inhaled Oxygen Concentration--Ilozmx540 kg (238 lb)04/25/2022 12:00 PM ZYGBbwmla049 cm (6' 2 ) 04/25/2022 12:00 PM EDTBody Mass Index30.561 12:00 PM EDT Plan of Treatment DateTypeDepartmentCare Team (Latest Contact Info)Fvavmvpetxq16/11/2025 10:50 AM ESTOffice Visit [facility] [address] [place] [address] Katie Rosen PA [address] [place] [address] Procedures Procedure NamePriorityDate/TimeAssociated DiagnosisCommentsSKIN / NAIL BIOPSY Hcilkzh6404/13/2025 11:11 AM EDT Rash and other nonspecific skin eruption DERMATOPATHOLOGY ZGCAHciqxbr00/29/2025 12:00 AM EDT Rash and other nonspecific skin eruption from Last 3 Months Results * Lesion biopsy (04/13/2025 11:11 AM EDT) Narrative Ama Cannon MA - 04/13/2025 11:11 AM EDT Type of biopsy: punch Informed consent: discussed and consent obtained ?? Informed consent comment: ??The risks and benefits were discussed. Risks include, but are not limited to, bleeding, infection, scarring, pain, & nerve damage. An opportunity to ask questions prior to the procedure was permitted and questions were answered. Patient was prepped and draped in usual sterile fashion: Area cleansed with alcohol. Anesthesia: the lesion was anesthetized in a standard fashion ?? Anesthetic: ??1% lidocaine w/ epinephrine 1-100,000 buffered w/ 8.4% NaHCO3 Punch size: ??4 mm (A biopsy by punch method was performed using a dermal punch) Suture size: ??4-0 Suture type: nylon ?? Suture type comment: ??Hemostasis was achieved with suture. Suture removal (days): ??10 Hemostasis achieved with: suture ?? Outcome: patient tolerated procedure well ?? Post-procedure details: sterile dressing applied and wound care instructions given ?? Post-procedure details comment: ??Emphasized the need to contact clinic for any signs of infection, uncontrollable bleeding, or complications. Dressing type: bandage ?? Additional details: ??Amount of lidocaine used: 1.0 cc Number of sutures used: 2 Specimen sent for: H&E Photo taken Authorizing ProviderResult TypeResult [facility] PROCEDURE ORDERABLESFinal Result * Dermatopathology exam (04/13/2025 12:00 AM EDT)ComponentValueRef RangeTest MethodAnalysis TimePerformed AtPathologist SignatureSPECIMEN TYPE SPECIMEN: LEFT LOWER LEG - ANTERIOR [facility] ICD10 CodeI83.799FBMTLO DIAGNOSTICSPROTOCOLP - PUNCHAURORA DIAGNOSTICSFinal DiagnosisSPONGIOTIC DERMATITIS WITH FEATURES OF VASCULAR STASIS (SEE COMMENT). COMMENT: Stasis dermatitis is favored in the differential. [facility]NO[facility]ICSGross TextAURORA DIAGNOSTICSMicroscopic DescriptionHistologic sections on a punch specimen show an eroded mildly acanthotic epithelium with subjacent brisk angiocentric and interstitial chronic inflammation. 04/21/2025 Examination of deeper levels show a focally eroded epithelium with inflammatory parakeratotic scale. ??There is irregular epidermal hyperplasia. ??There is a subjacent lobular proliferation of capillaries lined by plump endothelial cells and associated with brisk lymphocytic inflammation. ??There is mild epidermal spongiosis. [facility] KGAWICKISRADUC04483*1AURORA DIAGNOSTICSSpecimen (Source)Anatomical Location / LateralityCollection Method / VolumeCollection TimeReceived TimeSkin Topography unknown / Prwdjxh6904/13/2025 11:11 AM EDTComment:Differential Diagnosis: scabies vs. Stasis dermatitis vs. Atopic dermatitis vs. Contact dermatitis Narrative Authorizing ProviderResult TypeResult StatusRye [facility] PATHOLOGY ORDERABLESFinal ResultPerforming OrganizationAddressCity/State/ZIP CodePhone Number [facility] from Last 3 Months Insurance
--- NOTE | 2025-05-20 11:58 | XR_ITS ---
[address] [address] Patient Name: ELENA TREJO MRN: [id number] date: 1965 Sex: M Assigned Patient Location: [place] Current Patient Location: [place] Accession/Order Number: [id number] Exam Date: 05/20/2025 11:50 Report Date: 05/20/2025 12:42 At the request of: YKLE PACHECO DO Procedure: XR chest 2V PA AND LATERAL CHEST: CLINICAL HISTORY: Preop exam COMPARISON: 09/16/2023 FINDINGS: Unremarkable cardiomediastinal. Lungs clear. No effusion or pneumothorax. XR/XR chest 2V IMPRESSION: NO ACUTE CARDIOPULMONARY ABNORMALITY. Impression dictated by: Nikos Rivera M.D. 05/20/2025 12:42 PM Dictation Location: [place] [address] Electronically authenticated by: [id number] Y Date: 05/20/2025 12:42
[2025-05-20 12:04] LABS: Hematocrit 38.7 % (42.0-54.0); Hemoglobin 13.0 g/dL (14.0-18.0); Immature Granulocytes Abs Auto 0.08 10^3/uL (0.00-0.03); Immature Granulocytes Pct Auto 1.1 % (0.0-0.5); Lymphocytes Absolute Auto 1.8 10^3/uL (1.2-3.8); Mean Corpuscular HGB Conc 33.6 g/dL (29.9-35.2); Mean Corpuscular Hemoglobin 33.1 pg (25.9-34.0); Mean Corpuscular Volume 98.5 fL (80.0-94.0); Platelet Count 255 10^3/uL (150-450); Red Blood Count 3.93 10^6/uL (4.70-6.10); White Blood Count 7.1 10^3/uL (4.0-11.0)
[2025-05-20 12:18] LABS: Alanine Aminotransferase 45 U/L (16-63); Albumin Globulin Ratio 1.0; Albumin Level 3.4 g/dL (3.4-5.0); Alkaline Phosphatase 118 U/L (46-116); Anion Gap 14.9; Aspartate Amino Transferase 31 U/L (15-37); Blood Urea Nitrogen 7.0 mg/dL (7.0-18.0); Calcium 8.3 mg/dL (8.5-10.1); Carbon Dioxide 22.8 mmol/L (21.0-32.0); Chloride 103 mmol/L (98-107); Estimated GFR (African America >60 (>=60 mL/min/1.73m^2); Estimated GFR (Non-African Ame >60 (>=60 mL/min/1.73m^2); Globulin 3.3 g/dL; Glucose 91 mg/dL (74-106); Potassium 4.7 mmol/L (3.5-5.1); Sodium 136 mmol/L (136-145); Total Protein 6.7 g/dL (6.4-8.2)
--- NOTE | 2025-05-20 12:27 | PM.PRESUREVA ---
History of Present Illness History of Present Illness Chief complaint: Hip pain Narrative: Patient presents for presurgical testing. Please see HPI from Dr. Ceja dated May 13, 2025. Review of Systems ROS Narrative REVIEW OF SYSTEMS: Negative except as stated in HPI, ten or more systems reviewed. Constitutional: No fever, chills, weakness ENT: No sore throat or epistaxis Cardiovascular: Chronic chest pain and dyspnea on exertion Respiratory: No cough or wheezing Gastrointestinal: No abdominal pain, constipation, diarrhea, or vomiting Genitourinary: No dysuria or hematuria Neurological: No numbness, tingling, weakness, or headache Psychiatric: No mood changes [facility] History (Updated 05/20/25 @ 12:27 by Marti Soriano NP) Pneumonia ?J18.9 - Pneumonia, unspecified organism (ICD-10) COVID-19 ?U07.1 - COVID-19 (ICD-10) NSTEMI (non-ST elevated myocardial infarction) ?I21.4 - Non-ST elevation (NSTEMI) myocardial infarction (ICD-10) Adrenal insufficiency ?E27.40 - Unspecified adrenocortical insufficiency (ICD-10) Atrial septal defect ?Q21.10 - Atrial septal defect, unspecified (ICD-10) Neuropathy ?G62.9 - Polyneuropathy, unspecified (ICD-10) IBS (irritable bowel syndrome) ?K58.9 - Irritable bowel syndrome, unspecified (ICD-10) Osteoarthritis ?M19.90 - Unspecified osteoarthritis, unspecified site (ICD-10) Fibromyalgia ?M79.7 - Fibromyalgia (ICD-10) Diverticulitis ?K57.92 - Diverticulitis of intestine, part unspecified, without perforation or abscess without bleeding (ICD-10) Alcohol dependence, daily use ?F10.20 - Alcohol dependence, uncomplicated (ICD-10) Depression ?F32.A - Depression, unspecified (ICD-10) Cervical radiculopathy ?M54.12 - Radiculopathy, cervical region (ICD-10) BPH (benign prostatic hyperplasia) ?N40.0 - Benign prostatic hyperplasia without lower urinary tract symptoms (ICD-10) Gout ?M10.9 - Gout, unspecified (ICD-10) Mobitz type 1 second degree atrioventricular block ?I44.1 - Atrioventricular block, second degree (ICD-10) Avascular necrosis of left femur ?M87.052 - Idiopathic aseptic necrosis of left femur (ICD-10) Left hip pain ?M25.552 - Pain in left hip (ICD-10) Arthritis ?M19.90 - Unspecified osteoarthritis, unspecified site (ICD-10) Chronic obstructive pulmonary disease ?J44.9 - Chronic obstructive pulmonary disease, unspecified (ICD-10) Restless leg ?G25.81 - Restless legs syndrome (ICD-10) Hearing loss ?H91.90 - Unspecified hearing loss, unspecified ear (ICD-10) Dyspnea on exertion ?R06.09 - Other forms of dyspnea (ICD-10) Activity intolerance ?R68.89 - Other general symptoms and signs (ICD-10) Implantable loop recorder present ?Z95.818 - Presence of other cardiac implants and grafts (ICD-10) Acute hyponatremia ?E87.1 - Hypo-osmolality and hyponatremia (ICD-10) Chest pain ?R07.9 - Chest pain, unspecified (ICD-10) Muscle strain of right thigh ?S76.911A - Strain of unspecified muscles, fascia and tendons at thigh level, right thigh, initial encounter (ICD-10) Bilateral edema of lower extremity ?R60.0 - Localized edema (ICD-10) Hypertension ?I10 - Essential (primary) hypertension (ICD-10) Hyperlipidemia ?E78.5 - Hyperlipidemia, unspecified (ICD-10) Migraine ?G43.909 - Migraine, unspecified, not intractable, without status migrainosus (ICD-10) Enlarged prostate ?N40.0 - Benign prostatic hyperplasia without lower urinary tract symptoms (ICD-10) Upper back pain ?M54.9 - Dorsalgia, unspecified (ICD-10) Back pain ?M54.9 - Dorsalgia, unspecified (ICD-10) Neck pain ?M54.2 - Cervicalgia (ICD-10) Seizure ?R56.9 - Unspecified convulsions (ICD-10) Numbness and tingling ?R20.0 - Anesthesia of skin (ICD-10) ?R20.2 - Paresthesia of skin (ICD-10) Heartburn ?R12 - Heartburn (ICD-10) Acid reflux ?K21.9 - Gastro-esophageal reflux disease without esophagitis (ICD-10) Hypothyroid ?E03.9 - Hypothyroidism, unspecified (ICD-10) Emphysema of lung ?J43.9 - Emphysema, unspecified (ICD-10) Surgical History (Updated 05/20/25 @ 11:39 by Marti Soriano NP) History of cardiac catheterization ?Z98.890 - Other specified postprocedural states (ICD-10) History of total hip arthroplasty (2024) ?Z96.649 - Presence of unspecified artificial hip joint (ICD-10) History of foot surgery ?Z98.890 - Other specified postprocedural states (ICD-10) H/O lumbosacral spine surgery ?Z98.890 - Other specified postprocedural states (ICD-10) H/O cervical spine surgery ?Z98.890 - Other specified postprocedural states (ICD-10) H/O heart surgery ?Z98.890 - Other specified postprocedural states (ICD-10) Family History (Updated 05/20/25 @ 11:31 by Marti Soriano NP) Other Family history of cancer Family history of diabetes mellitus Family history of heart disease Family history of hypertension Family history of myocardial infarction Family history of stroke Social History (Updated 05/20/25 @ 11:26 by Marti Soriano NP) Within the past year, how often did you have a drink containing alcohol: 4 or more times a week Within the past year, how many standard drinks containing alcohol did you have on a typical day: 7 to 9 Smoking status: Former smoker Non-prescribed substance use: denies use Highest level of school completed/degree received: some college, no degree Little interest or pleasure in doing things: not at all Feeling down, depressed, or hopeless: not at all Do you think of yourself as: straight/heterosexual Gender Identity: male Meds Home Medications and Allergies Home Medications ?Medication ?Instructions ?Recorded ?Confirmed ?Type metoprolol tartrate 50 mg tablet 50 mg PO DAILY 12/24/22 05/20/25 History aspirin 81 mg chewable tablet 162 mg PO DAILY 12/25/22 05/20/25 History (Aspirin Childrens) atorvastatin 10 mg tablet 10 mg PO QPM 05/25/23 05/20/25 History tizanidine 4 mg tablet 8 mg PO QPM 05/25/23 05/20/25 History isosorbide mononitrate 30 mg 30 mg PO QAM 07/21/23 05/20/25 History tablet,extended release 24 hr topiramate 100 mg tablet 200 mg PO BEDTIME 07/21/23 05/20/25 History diclofenac sodium 75 mg 75 mg PO BID PRN pain 12/01/24 05/20/25 History tablet,delayed release levothyroxine 125 mcg tablet 250 mcg PO QAM 12/01/24 05/20/25 History tamsulosin 0.4 mg capsule 0.4 mg PO DAILY 12/01/24 05/20/25 History topiramate 100 mg tablet 100 mg PO QAM 12/01/24 05/20/25 History albuterol sulfate 2.5 mg/3 mL 2.5 mg inhalation Q6H PRN 05/20/25 05/20/25 History (0.083 %) solution for nebulization shortness of breath or wheezing ascorbic acid (vitamin C) 500 mg 500 mg PO DAILY 05/20/25 05/20/25 History capsule cholecalciferol (vitamin D3) 10 10 mcg PO DAILY 05/20/25 05/20/25 History mcg (400 unit) capsule omeprazole 20 mg capsule,delayed 20 mg PO DAILY 05/20/25 05/20/25 History release triamcinolone acetonide 0.1 % 1 applic topical DAILY 05/20/25 05/20/25 History topical ointment Allergies Allergy/AdvReac Type Severity Reaction Status Date / Time Penicillins Allergy Severe throat Verified 05/20/25 11:24 swelling lidocaine Allergy Anaphylaxis Verified 05/20/25 11:24 strawberry Allergy Hives Verified 05/20/25 11:24 Exam Narrative Exam Narrative: Constitutional: Awake, alert, comfortable, well-appearing, nontoxic, interactive, vital signs as charted Head: Normocephalic, atraumatic Neck: Supple, normal appearance, normal range of motion, no meningeal signs, no lymphadenopathy Respiratory: No respiratory distress, breath sounds clear Cardiovascular: Regular rate and rhythm, strong and regular heart tones Abdomen: Nontender, normal bowel sounds, soft Neuro: No neurological deficits, normal sensation Psychiatric: Oriented ?3, normal affect Assessment and Plan Assessment and Plan (1) Left hip pain: (2) Avascular necrosis of left femur: Plan Left total hip arthroplasty scheduled with Dr. Ceja June 01, 2025.
[2025-05-20 12:37] LABS: Partial Thromboplastin Time 26.6 sec (22.3-36.2)
[2025-05-20 13:02] LABS: INR 0.93; Prothrombin Time 9.9 sec (9.0-11.6)
== END 2025-05-20 11:03 | disposition home or self-care (01) ==
LOC: PST 11:03
PROVIDERS: PCP Family Medicine; Visit Provider Orthopaedic Surgery Orthopaedic Trauma
DX: Z01.810 Encounter for preprocedural cardiovascular examination (principal); Z01.812 Encounter for preprocedural laboratory examination; Z01.818 Encounter for other preprocedural examination; M25.552 Pain in left hip; M87.9 Osteonecrosis, unspecified
CPT/HCPCS: 36415; 71046; 80053; 85025; 85610; 85730; G0463

== ENCOUNTER 2025-05-22 13:47 | Outpatient (OUT) | payer MEDICARE, SELFPAY ==
--- OUTSIDE RECORDS SUMMARY | 2025-05-22 13:00 | XMS_ITS | Encounter Summary ---
Author Organization [facility] Address [address] [place] [address] Care Team Providers Care Food Vendor Name Role Phone Patrice Guadalupe MD Primary Care Provider [phone] Reason for Referral * (Routine) - Pending ReviewSpecialtyDiagnoses / ProceduresReferred By Contact Referred To Contact Diagnoses Pre-op evaluation Atypical chest pain APPIAH (dyspnea on exertion) Procedures ECG 12 lead Reid Shae MD [address] [facility] [address] [address] Phone: tel: fax: Referral IDStatusReasonStart DateExpiration DateVisits RequestedVisits [id number] * Imaging (Routine) - Pending ReviewSpecialtyDiagnoses / ProceduresReferred By ContactReferred To ContactCardiology Diagnoses Pre-op evaluation Shortness of breath Procedures Transthoracic echo (TTE) complete Reid Shea MD [address] [facility] [address] [place] [address] Phone: tel: fax: Referral IDStatusDiannaasonStphuc DateExpiration DateVisits RequestedVisits [id number] Review Perform Procedure Reason for Visit * ReasonCommentsFollow-upSurgery clearanceLeft hip replacement Jun 01 Dr. Egan recorderMobitz type 1 atrioventricular blockMigraineHyperlipidemia Ostium secundum type atrial septal defectPeripheral venous insufficiency HypertensionNSTEMICoronary Artery Disease Encounter Details DateTypeDepartmentCare Team (Latest Contact Info)Nctacvlpzxv01/07/2025 1:00 PM ESTOffice Visit [facility] [address] [place] [address] Reid Shea MD [address] [facility] [address] [place] [address] Pre-op evaluation (Primary Dx); Atypical chest pain; APPIAH (dyspnea on exertion); Shortness of breath; Syncope, unspecified syncope type; Benign essential hypertension; Mixed hyperlipidemia; Alcoholism (CMS/HCC) Social History Tobacco UseTypesPacks/DayYears UsedDateSmoking Tobacco: [id number] - mokeless Tobacco: FormerChewQuit: 1985Alcohol UseStandard Drinks/Week NnfngnxfUxl02 (1 standard drink = 0.6 oz pure [...] Assigned at BirthMale 04/21/2023 10:36 AM EDTLegal BnvYmax23/28/2022 1:37 PM ESTGender IdentityMale 04/21/2023 10:36 AM EDTSexual OrientationHeterosexual or Wgybqtbw09/07/2023 10:36 AM EDTdocumented as of this encounter Last Filed Vital Signs Vital SignReadingTime TakenCommentsBlood Tfjtzsnw316/ 1:06 PM EST Hqfyq673705/22/2025 1:06 PM ESTTemperature--Respiratory Rate--Oxygen Wngdocltlq20% 05/22/2025 1:06 PM ESTInhaled Oxygen Concentration--Weight--Wdfhgt466.4 cm (6' 1 )05/22/2025 1:06 PM ESTBody Mass Index--documented in this encounter Functional Status * BPAnswerDate of ShqtyjoncnIylamm929/8605/22/2025 1:06 PM Maty Manzo MA * PulseAnswerDate of TgszzfxyxkRcsrja8085/07/2025 1:06 PM Maty Manzo MA * Audit Alcohol ScreeningQuestionAnswerDate of AssessmentAuthorHow often do you have a drink containing alcohol? 1:26 PM Maty Manzo MA How many standard drinks containing alcohol do you have on a typical day?2 05/22/2025 1:26 PM Maty Manzo MAHow often do you have six or more drinks on one occasion? 1:26 PM Maty Manzo MAAudit-C Jljqf2721 1:26 PM Maty Manzo MA * Patient PositionAnswerDate of HepmrkqfcjRojiirAqnjjuc72/07/2025 1:06 PM Maty Urena MA * BPAnswerDate of EefyinqkqmYbpwbi241/8605/22/2025 1:06 PM Maty Manzo MA * PulseAnswerDate of IeyohkdgpfSxfxef3599/07/2025 1:06 PM Maty Manzo MA * OoO8XvyqdqCvza of WvxbqtgzogTvylgs2830/07/2025 1:06 PM Maty Manzo MA * BP [...] one occasion? 1:26 PM Maty Manzo MAAudit-C Ttrwj2716 1:26 PM Maty Manzo MA * Patient PositionAnswerDate of OkdvwrttxqGxmsdsRyjzioy37/07/2025 1:06 PM Maty Urena MA documented as of this encounter Progress Notes * Reid Shea MD - 05/22/2025 1:00 PM EST Images from the original note were not included. [place] [facility] - [facility] Subjective Rehan Po[place] is [...] Diagnosis Date COPD (chronic obstructive pulmonary disease) ([facility]) Hyperlipidemia Hypertension Seizures ([facility]) Syncope Past Surgical History: Procedure Laterality Date [...] Drug use: Never Allergies Allergies Allergen Reactions Apison Anaphylaxis Penicillins Angioedema Procaine Unknown Medications Current [...] the morning and at bedtime. 100mg in qx821ef in pm, Disp: , Rfl: triamcinolone (Kenalog) [...] voltage QRS Borderline ECG Echo: 09/13/2023 at [place] Lexiscan nuclear stress test: 05/28/2023 Negative perfusion [...] cardiomyopathy. Follow-up in 6 months Reid Shea MD,[facility] documented in this encounter Plan [...] your diet plan as advised by your unix developer Leona Shrestha, RN Follow your diet plan as advised by your unix developer Leona Etienne, RNdocumented as of this encounter Procedures Procedure NamePriorityDate/TimeAssociated DiagnosisCommentsECG 12-LEADRoutine 05/22/2025 1:46 PM EST Pre-op evaluation Atypical chest pain APPIAH (dyspnea on exertion) ECG 12 LEAD UNIT YCSQUAHVSXsvwcxm96/07/2025 1:05 PM EST Pre-op evaluation documented in this encounter Results * ECG 12 lead (05/22/2025 1:46 PM EST)Specimen (Source)Anatomical Location / LateralityCollection Method / VolumeCollection TimeReceived Time Narrative Reid Shea MD - 05/22/2025 1:46 PM EST Normal sinus rhythm, heart rate 64 bpm, low voltage QRS, borderline EKG Authorizing ProviderResult TypeResult StatusReid ESCAMILLA ORDERABLESFinal Result * ECG 12 lead unit performed (05/22/2025 1:05 PM EST)Specimen (Source)Anatomical Location / LateralityCollection Method / VolumeCollection TimeReceived Time Narrative Authorizing ProviderResult TypeResult Danita ESCAMILLA ORDERABLESFinal Result documented in this encounter [...] MemberRelationshipSpecialtyStart DateEnd Patrice Guadalupe MD [address] [facility] [address] PCP - Iocpoeo15/7/23documented as of this encounter
--- OUTSIDE RECORDS SUMMARY | 2025-05-22 13:51 | XMS_ITS | Encounter Summary ---
Author Organization [facility] Address [address] [place] [address] Care Team Providers Care Emanations Analysis Technician Name Role Phone Patrice Guadalupe MD Primary Care Provider [phone] Encounter Details DateTypeDepartmentCare Team (Latest Contact Info)Bctlxijcngh15/26/2025Orders Only [facility] [address] [place] [address] Grabiel Collado MD [address] [place] [address] Social History Tobacco UseTypesPacks/DayYears UsedDateSmoking Tobacco: [id number] - mokeless Tobacco: FormerChewQuit: 1985Alcohol UseStandard Drinks/Week GekqgszeZax18 (1 standard drink = 0.6 oz pure [...] Assigned at BirthMale 04/21/2023 10:36 AM EDTLegal OklRnpa68/28/2022 1:37 PM ESTGender IdentityMale 04/21/2023 10:36 AM EDTSexual OrientationHeterosexual or Yejwzmgv40/07/2023 10:36 AM EDTdocumented as of this encounter Plan of Treatment Not on file documented as of this encounter Goals GoalPatient Goal TypeAssociated ProblemsRecent ProgressPatient-Stated?Author Follow your diet plan as advised by your rail setter Leona Shrestha, RN Follow your diet plan as advised by your rail setter Leona Etienne, RNdocumented as of this encounter Procedures Procedure NamePriorityDate/TimeAssociated DiagnosisCommentsCARDIAC DEVICE CHECK - REMOTE - LOOP RECORDER (ILR)Dcmpwkk1605/10/2025 12:00 AM EDTdocumented in this encounter Results [...] MemberRelationshipSpecialtyStart DateEnd Date Patrice Guadalupe MD [address] [place] [address] PCP - Fpzgawy77/7/23documented as of this encounter
--- OUTSIDE RECORDS SUMMARY | 2025-05-22 13:51 | XMS_ITS | Clinical Summary ---
Author Organization [facility] Address [address] [place] [address] Care Team Providers Care Industrial Relations Director Name Role Phone Patrice Guadalupe MD Primary Care Provider [phone] Allergies Active AllergyReactionsCriticalityNoted DateCommentsPenicillinsSwelling 10/29/2008 Medications MedicationSigDispense QuantityRefillsLast FilledStart DateEnd DateStatus diltiazem hcl(CARTIA XT 240 MG 24 HR CAP) Take one tablet once ygomc306ctive doxazosin mesylate(CARDURA 4 MG TAB) Take one(1) tablet daily.ctive levothyroxine sodium(SYNTHROID 125 MCG TAB) Take one(1) tablet daily.ctive ASPIRIN 325 MG TAB Take one(1) tablet daily.ctive omeprazole(PRILOSEC 20 MG CAP) Take two capsules daily.ctive CYPROHEPTADINE 4 MG TAB Take two tablets once daily 0 ctive divalproex sodium(DEPAKOTE 250 MG TAB) Take one(1) tablet three times daily. 0 ctive TRIAMTERENE-HYDROCHLOROTHIAZIDE 75 MG-50 MG TAB Take one(1) tablet daily.ctive sertraline hcl(ZOLOFT 100 MG TAB) Take one(1) tablet daily.ctive Active Problems ProblemNoted DateDiagnosed Datepatent foramen ovale10/29/2008 Overview (12/31/2008): OSH Echo 10/20/2008 per Patient + hole [...] If clinically indicated would do a RONI Acute, but ill-defined, cerebrovascular bmvidof1210/29/2008 Overview (10/29/2008): TIA 09/2008: Left sided weakness, Left facial assymetry, expressive aphasia 10/23/2008: OSH MRI of Brain without contrast: Small Right maxillary Sinus mucus rentention cyst. C/W chronic sinusitis. The periventrivular deep and subcortical white matter are normal. There is no atypical or abnormal contrast enhancement. No large or small vessel infarction, no hemorrhage, no midline shift. 10/20/2008 OSH Agitated NSS procedure: Multiple BRETT's detected with curtain sign. + exam for Right toLeft shunt. 10/20/2008 OSH TCD: Within normal limits 10/20/2008 OSH Carotid Doppler: No significant stenosis noted. Mild intimal thickening, 1-29% stenosis bilat ICA's, Antegrade flow bilat vertebral arteries, Triphasic waveform bilat subclavian arteries Variants of migraine, not elsewhere classified, without mention of intractable migraine without mention of status bcxlexvxpij32/16/2009Chest pain, unspecified 10/29/2008 Overview (10/29/2008): Stress Test 2 years ago OK Unspecified essential vuyfguxgursz22/16/2009Mixed /16/2009 Personal history of tobacco use, presenting hazards to vbwadw6010/29/2008 Overview (10/29/2008): Smoke <1PPD x23 years quit for a few years and now currently smokes <1PPD Other diseases of lung, not elsewhere ytmbwjevme77/16/2009Dizziness and llojzcdgj11/16/2009Generalized osteoarthrosis, unspecified site10/29/2008 Overview (10/29/2008): L4-L5 s/p Neck surgery 2000 Depressive disorder, not elsewhere /16/2009 Social History Tobacco UseTypesPacks/DayYears UsedDateSmoking Tobacco: Every DayCigarettes0.524 Comments:did quit for 9 nont hs @ 2 yrs ago Alcohol UseStandard Drinks/WeekCommentsNo0 (1 standard drink = 0.6 oz pure alcohol)Sex and Gender InformationValueDate RecordedSex Assigned at BirthNot on fileLegal OrkAymg84/02/2012 9:29 AM ESTGender IdentityNot on fileSexual OrientationNot on file Last Filed Vital Signs Vital SignReadingTime TakenCommentsBlood Whwdotcw550/8612/31/2008 12:44 PM EDT (from Extended Vitals)Iibsd571412/31/2008 12:43 PM EDT(from Extended Vitals) Xlitomsbceh14 ??C (96.8 ??F)11/03/2008 9:48 AM EDTRespiratory Tjcx6464 9:48 AM EDTOxygen Lcdoszmtbj667%11/03/2008 9:48 AM EDTInhaled Oxygen Concentration--Bzqwic070.8 kg (244 lb 4.3 oz)12/31/2008 12:43 PM LXNZsgqzw081.4 cm (6' 1 )11/02/2008 2:00 PM EDTBody Mass Index32.23011/02/2008 2:00 PM EDT Plan of Treatment Health MaintenanceDue DateLast DoneCommentsAnxiety Mriquxlms91/23/1983Depression Rggkngmzb38/23/1983HIV Zlpfimwkh47/23/1983Hepatitis C Bphyyhbez46/23/1983 DTaP,Tdap,Td Vaccine (1 - Tdap)02/05/1984CT Ecfgwmbutfdb64/23/2010Cologuard (FIT-DNA)02/04/20104442Zjalwgtolva12/23/2010Colorectal Cancer Fohdaoukc06/23/2010 Fecal Occult Blood2010Prostate Cancer Screening Ozdgqkezzd42/23/2010 Pgfgodvrtsqrs20/23/2010Diabetes Ogozclosg04, 11/03/2008, 10/29/2008Lipid Wbvxvdiim65Pneumococcal Vaccine: 50+ (1 of 1 - PCV)2015Shingrix Vaccine (1 of 2)2015Covid-19 Vaccine (2024-26 season)2025Influenza Vaccine (#1)2025RSV Vaccine (1 - 1-dose 75+ series)02/05/2040 Procedures Procedure NamePriorityDate/TimeAssociated DiagnosisCommentsCOMPREHENSIVE METABOLIC PYHPCInpvsmg69/18/2009 3:03 PM EDT patent foramen ovale LIPID PANEL, XLSFATFTmhvtsx54/16/2009 12:59 PM EDT 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 Def from Last 3 Months or Most Recently Relevant to Health Maintenance Results * (ABNORMAL) COMP METABOLIC PANEL (12/31/2008 3:03 PM EDT)ComponentValueRef RangeTest MethodAnalysis TimePerformed AtPathologist SignatureProtein, Total 7.56.0 - 8.4 g/dLMEMORIAL [facility] LABORATORYAlbumin4.43.5 - 5.0 g/dL [facility] LABORATORYCalcium9.48.5 - 10.5 mg/dLMEMORIAL HEALTH [facility] LABORATORYBilirubin, Total0.30.0 - 1.5 mg/dLMEMORIAL [facility]ALTH [facility] LABORATORYAlkaline Knzxwaezofv6375 - 150 U/LCKETTERING [facility] MAIN LABORATORY GDA621 - 40 U/LCSELECT [facility] FRBCGMKQLNKfcnufa4397 - 100 mg/dL [facility] ZTQVQYRWZEYFT1419 - 25 mg/dLMEMORIAL [facility] LABORATORYCreatinine1.210.70 - 1.40 mg/dLMEM[facility]IAL [facility] Qogkni564886 - 146 mmol/LCKETTERING [facility] LABORATORYPotassium4.53.5 - 5.0 mmol/LCKETTERING [facility] QHLFVDMDHMFxutpfrd14(L)98 - 110 mmol/LCKETTERING [facility] ANUJENGXUPEH56702 - 32 mmol/LCKETTERING [facility] LABORATORYAnion Bvr496 - 15 mmol/LCKETTERING [facility] JCKXASOYXCGMR249 - 50 U/LCSELECT [facility] LABORATORYeGFR->60[facility] eGFR-All Other Races>60.[facility] LABORATORYComment: eGFR (Estimated GFR) Units of measure: mL/min/1.73 meters squared eGFR is derived from the reexpressed MDRD Study equation using the following parameters: serum creatinine, age, gender and race. The creatinine assay has been calibrated to be traceable to IDMS. An eGFR <60 mL/min/1.73m2 for >3 months is consistent with chronic kidney disease. Refer to KDOQI guidelines for clinical interpretation. Specimen (Source)Anatomical Location / LateralityCollection Method / Volume Collection TimeReceived TimeBlood specimen (specimen)BLOOD SPECIMEN / Unknown 12/31/2008 3:03 PM EDT Narrative Authorizing ProviderResult TypeResult StatusEmbre Kuhn MDLABORATORYFinal ResultPerforming OrganizationAddressCity/State/ZIP CodePhone Number [facility] [address] [place] [address] * (ABNORMAL) LIPID PANEL BASIC (10/29/2008 12:59 PM EDT)ComponentValueRef Range Test MethodAnalysis TimePerformed AtPathologist IlkknhhviQdyfjehdyhuu92585 - 149 mg/dLMEMORIAL [facility] LABORATORYCholesterol, Gybxf210(H)100 - 199 mg/dLMEM[facility]IAL [facility] LABORATORYHDL Cmbueqttejj74(L)>45 mg/dLMEM[facility]IAL [facility] LABORATORYVLDL Mnnihdnabwg417 - 40 mg/dLMEMORIAL [facility] LABORATORYLDL Cholesterol, Rtkznofbwc309(H)60 - 129 mg/dLMEMORIAL [facility]ALTH [facility] LABORATORYFasting Plgb72pghFELAYGDPVSELECT [facility]ICAL [facility] LABORATORYTC:HDL Ratio6.49(H) 1.00 - 5.00[facility] LABORATORYLDL:HDL Ratio4.78(H)0.50 - 3.55 [facility] LABORATORYNon HDL Utayowuwwlc512(H)90 - 159 mg/dL [facility] LABORATORYSpecimen (Source)Anatomical Location / LateralityCollection Method / VolumeCollection TimeReceived TimeBlood specimen (specimen)BLOOD SPECIMEN / Eyrakpx6810/29/2008 12:59 PM EDT Narrative Authorizing ProviderResult TypeResult StatusEmbre Kuhn MDLABORATORYFinal ResultPerforming OrganizationAddressCity/State/ZIP CodePhone Number [facility] [address] [place] [address] from Last 3 Months or Most Recently Relevant to Health Maintenance Insurance * Guarantor: Farrukh POOLE TypeRelation to PatientDate of BirthPhone Billing AddressPersonal/ZjzhylCtgs1965 [id number] [place] [phone] * Guarantor: Farrukh POOLE TypeRelation to PatientDate of BirthPhone Billing AddressSelf HwuWlel48 1965 [id number] [place] [id number] Care Teams Team MemberRelationshipSpecialtyStart DateEnd Patrice Guadalupe MD PCP - GeneralFamily Omgzwhky59/10/15
--- OUTSIDE RECORDS SUMMARY | 2025-05-22 13:51 | XMS_ITS | Patient Health Record ---
Author Organization [facility] in [place] Address [address] [place] [address] Care Team Providers Care Landfill Attendant Name Role Phone Michael Lakhani Primary Care Provider Allergies Allergen (clinical drug ingredient) Drug/Non Drug Allergy documented on EMR Reaction Allergy Type Onset Date Status strawberry allergenic extract [place] (uncoded) unknown Allergy ActivePenicillinunknownDrug AllergyActive Results Component Value Reference Range Notes US APPENDIX Reviewed date:04/23/2025 12:42:28 PM Interpretation: Performing Lab: Notes/Report: Source Facility: [place] [address] Ultrasound Report Signed Patient: REHAN POOLE MR#: [id number] : 1965 Acct:[id number] Age/Sex: 60 / M ADM Date: 04/22/25 Loc: US Attending Dr: Pee Lakhani M.D. Ordering Physician: Pee Lakhani M.D. Date of Service: 04/22/25 Procedure(s): US appendix Accession Number(s): [id number] cc: Pee Lakhani M.D. [place] [address] Patient Name: REHAN POOLE MRN: [id number] date: 1965 Sex: M Assigned Patient Location: US Current Patient Location: US Accession/Order Number: [id number] Exam Date: 04/22/2025 15:30 Report Date: 04/22/2025 19:19 At the request of: PEE LAKHANI MD Procedure: US appendix Targeted ultrasound right lower quadrant INDICATION: Right lower quadrant pain COMPARISON: None FINDINGS: Peristalsing bowel loops. Normal appendix not visualized. No loculated fluid collection within the xipig-up-kkcy. US/US appendix IMPRESSION: Appendix not visualized. Recommend further evaluation as clinically warranted. Impression dictated by: Nikos Rivera M.D. 04/22/2025 7:19 PM Dictation Location: [place] [address] Electronically authenticated by: [id number] Y Date: 04/22/2025 19:19 Dictated By: Nikos Rivera M.D. Signed By: 04/22/251920 DD/ 18 TD/TT: Mailroom Courier: CBC AUTO DIFF Reviewed date:12/01/2024 12:48:28 PM Interpretation: Performing Lab: Notes/Report: [facility] , White Blood Count 9.7 4.0-11.0 10 3/uL Red Blood Count4.144.70-6.10 10 6/dLAkrbuxpiuj85.214.0-18.0 g/nRJnfvzkiltq40.2 42.0-54.0 %Mean Corpuscular Ystrxe42.180.0-94.0 fLMean Corpuscular Hemoglobin 34.325.9-34.0 pgMean Corpuscular HGB Conc35.329.9-35.2 g/dLRed Cell Distribution Width12.711.0-15.0 %Platelet Bhchg837792-073 10 3/uLMean Platelet Volume9.19.5- 13.5 fLNeutrophils Percent Auto64.843.0-75.0 %Lymphocytes Percent Auto26.620.5- 60.0 %Monocytes Percent Auto6.61.7-12.0 %Eosinophils Percent Auto0.70.9-7.0 % Basophils Percent Auto0.30.2-2.0 %Immature Granulocytes Pct Auto1.00.0-0.5 % Neutrophils Absolute Auto6.31.4-6.5 10 3/uLLymphocytes Absolute Auto2.61.2-3.8 10 3/uLMonocytes Absolute Auto0.60.3-0.8 10 3/uLEosinophils Absolute Auto0.10.0- 0.7 10 3/uLBasophils Absolute Auto0.00.0-0.1 10 3/uLImmature Granulocytes Abs Auto0.100.00-0.03 10 3/uLPerforming Lab:see noteML - [facility] LBCRP Reviewed date:12/01/2024 12:48:28 PM Interpretation: Performing Lab: Notes/Report: [facility] ,C Reactive Protein2.11<=0.50 mg/dLPerforming Lab:see noteML - [facility] LBPROF 14(COMP METB) Reviewed date:12/01/2024 12:48:28 PM Interpretation: Performing Lab: Notes/Report: [facility] ,Hmpfbr233205-005 mmol/LPotassium3.93.5-5.1 mmol/ELzwhapfi1017-730 mmol/LCarbon Xnkpwdc21.521.0-32.0 mmol/LAnion Gap14.7Rfocaep1380-963 mg/dLBlood Urea Nitrogen 12.07.0-18.0 mg/dLCreatinine1.070.70-1.30 mg/dLEstimated GFR ( Rehana>60 >=60 mL/min/1.73m 2Estimated GFR (Non- Francy>60>=60 mL/min/1.73m 2BUN Creatinine Ratio11.3Mjmbgho2.78.5-10.1 mg/dLBilirubin Total0.60.2-1.0 mg/dL Aspartate Amino Yieuuisyqof8879-89 U/LAlanine Sdmahmbfiwchrawm82714-02 U/L Alkaline Kkkmegxrxix83178-848 U/LTotal Protein7.06.4-8.2 g/dLAlbumin Level3.4 3.4-5.0 g/dLGlobulin3.6Albumin Globulin Ratio0.9Performing Lab:see noteML - [facility] LBProthrombin Time INR Reviewed date:12/01/2024 12:48:28 PM Interpretation: Performing Lab: Notes/Report: [facility] ,Prothrombin Time9.99.0-11.6 secINR0.93 DESIRED INR: 2.0-3.0 CONDITIONS NOT LISTED BELOW 2.5-3.5 FOR PROSTHETIC HEART VALVE REPLACEMENT 2.5-3.5 RECURRENT THROMBOSIS Performing Lab:see noteML - [facility] LBErythrocyte Sedimentation Rate Reviewed date:12/01/2024 12:48:28 PM Interpretation: Performing Lab: Notes/Report: [facility] ,Erythrocyte Sedimentation Rate46<=20 mm/hrPerforming Lab:see noteML - [facility] LBCT PELVIS WO CON Reviewed date:12/01/2024 01:54:46 PM Interpretation: Performing Lab: Notes/Report: Source Facility: [place] [address] CT Scan Report Signed Patient: REHAN POOLE MR#: [id number] : 1965 Acct:[id number] Age/Sex: 59 / M ADM Date: 12/01/24 Loc: ER Attending Dr: Ordering Physician: Radha Payton Date of Service: 12/01/24 Procedure(s): CT pelvis wo con Accession Number(s): [id number] cc: Pee Lakhani M.D. [place] [id number] Patient Name: REHAN POOLE MRN: [id number] date: 1965 Sex: M Assigned Patient Location: ER Current Patient Location: ER Accession/Order Number: [id number] Exam Date: 12/01/2024 12:55 Report Date: 12/01/2024 [...] Traylor M.D. 12/01/2024 1:06 PM Dictation Location: [place] [address] Electronically authenticated by: [id number] Y Date: 12/01/2024 13:06 Dictated By: Halie Traylor M.D. Signed By: 12/01/24 1309 DD/ 1306 TD/TT: Mailroom Courier:XR hip RT 2V w/ pelvis Reviewed date:12/01/2024 12:48:28 PM Interpretation: Performing Lab: Notes/Report: Source Facility: [place] [address] [place] [address] XRay Report Signed Patient: REHAN POOLE MR#: [id number] : 1965 Acct:[id number] Age/Sex: 59 / M ADM Date: 12/01/24 Loc: ER Attending Dr: Ordering Physician: Radha Payton Date of Service: 12/01/24 Procedure(s): XR hip RT 2V w/ pelvis Accession Number(s): [id number] cc: Pee Lakhani M.D.; Radha Payton [place] [address] Patient Name: REHAN POOLE MRN: [id number] date: 1965 Sex: M Assigned Patient Location: ER Current Patient Location: ER Accession/Order Number: [id number] Exam Date: 12/01/2024 11:14 Report Date: 12/01/2024 [...] Yeung M.D. 12/01/2024 11:16 AM Dictation Location: [place] [address] Electronically authenticated by: [id number] Y Date: 12/01/2024 11:16 Dictated By: Reinaldo Yeung M.D. Signed By: 12/01/24 1119 DD/ 1116 TD/TT: Mailroom Courier:XR femur RT 2V Reviewed date:12/01/2024 12:48:28 PM Interpretation: Performing Lab: Notes/Report: Source Facility: [facility]-[address] [place] [address] [place] [address] XRay Report Signed Patient: REHAN POOLE MR#: [id number] : 1965 Acct:[id number] Age/Sex: 59 / M ADM Date: 12/01/24 Loc: ER Attending Dr: Ordering Physician: Radha Payton Date of Service: 12/01/24 Procedure(s): XR femur RT 2V Accession Number(s): [id number] cc: Pee Lakhani M.D.; Radha Payton [place] [id number] Patient Name: REHAN POOLE MRN: [id number] date: 1965 Sex: M Assigned Patient Location: ER Current Patient Location: ER Accession/Order Number: [id number] Exam Date: 12/01/2024 11:12 Report Date: 12/01/2024 [...] Yeung M.D. 12/01/2024 11:14 AM Dictation Location: [place] [address] Electronically authenticated by: [id number] Y Date: 12/01/2024 11:14 Dictated By: Reinaldo Yeung M.D. Signed By: 12/01/24 1117 DD/ 1114 TD/TT: Mailroom Courier:CBC AUTO DIFF Reviewed date:05/20/2025 04:50:58 PM Interpretation: Performing Lab: Notes/Report: [facility] ,White Blood Count7.14.0-11.0 10 3/uLRed Blood Count3.934.70-6.10 10 6/uL Ffhgjxjzut43.014.0-18.0 g/dCBmssfejyzd09.742.0-54.0 %Mean Corpuscular Yyiuel20.5 80.0-94.0 fLMean Corpuscular Nwdheighmw75.125.9-34.0 pgMean Corpuscular HGB Conc 33.629.9-35.2 g/dLRed Cell Distribution Width13.311.0-15.0 %Platelet Kdsua760 150-450 10 3/uLMean Platelet Volume9.69.5-13.5 fLNeutrophils Percent Auto62.3 43.0-75.0 %Lymphocytes Percent Auto25.820.5-60.0 %Monocytes Percent Auto7.71.7- 12.0 %Eosinophils Percent Auto2.50.9-7.0 %Basophils Percent Auto0.60.2-2.0 % Immature Granulocytes Pct Auto1.10.0-0.5 %Neutrophils Absolute Auto4.51.4-6.5 10 3/uLLymphocytes Absolute Auto1.81.2-3.8 10 3/uLMonocytes Absolute Auto0.60.3-0.8 10 3/uLEosinophils Absolute Auto0.20.0-0.7 10 3/uLBasophils Absolute Auto0.00.0- 0.1 10 3/uLImmature Granulocytes Abs Auto0.080.00-0.03 10 3/uLPerforming Lab:see noteML - [facility] LBPROF 14(COMP METB) Reviewed date:05/20/2025 04:50:58 PM Interpretation: Performing Lab: Notes/Report: [facility] ,Zrsuch388988-392 mmol/LPotassium4.73.5-5.1 mmol/DQyvjehxo60903-550 mmol/LCarbon Nxqgbql21.821.0-32.0 mmol/LAnion Gap14.7Xbkrsnd0297-849 mg/dLBlood Urea Nitrogen 7.07.0-18.0 mg/dLCreatinine0.920.70-1.30 mg/dLEstimated GFR ( Rehana>60 >=60 mL/min/1.73m 2Estimated GFR (Non- Francy>60>=60 mL/min/1.73m 2BUN Creatinine Ratio7.0Idsvcro5.38.5-10.1 mg/dLBilirubin Total0.50.2-1.0 mg/dL Aspartate Amino Dhklcawbhxs0555-58 U/LAlanine Muvtlyhgrkezbhvq0061-66 U/L Alkaline Yosorrfzehs11116-986 U/LTotal Protein6.76.4-8.2 g/dLAlbumin Level3.4 3.4-5.0 g/dLGlobulin3.3Albumin Globulin Ratio1.0Performing Lab:see note - [facility] LBPTT Reviewed date:05/20/2025 04:50:58 PM Interpretation: Performing Lab: Notes/Report: [facility] ,Partial Thromboplastin Time26.622.3-36.2 secPerforming Lab:see [facility] LBProthrombin Time INR Reviewed date:05/20/2025 04:50:58 PM Interpretation: Performing Lab: Notes/Report: [facility] ,Prothrombin Time9.99.0-11.6 secINR0.93 DESIRED INR: 2.0-3.0 CONDITIONS NOT LISTED BELOW 2.5-3.5 FOR PROSTHETIC HEART VALVE REPLACEMENT 2.5-3.5 RECURRENT THROMBOSIS Performing Lab:see [facility] - [facility] LBXR chest 2V Reviewed date:05/20/2025 04:50:58 PM Interpretation: Performing Lab: Notes/Report: Source Facility: [facility]-[address] [place] [address] XRay Report Signed Patient: REHAN POOLE MR#: [id number] : 1965 Acct:[id number] Age/Sex: 60 / M ADM Date: 05/20/25 Loc: PST Attending Dr: Kyle Ceja D.O. Ordering Physician: Kyle Ceja Date of Service: 05/20/25 Procedure(s): XR chest 2V Accession Number(s): [id number] cc: Pee Lakhani M.D.; Kyle Ceja [place] [address] Patient Name: REHAN POOLE MRN: [id number] date: 1965 Sex: M Assigned Patient Location: MS Current Patient Location: MS Accession/Order Number: [id number] Exam Date: 05/20/2025 11:50 Report Date: 05/20/2025 12:42 At the request of: KYLE CEJA DO Procedure: XR chest 2V PA AND LATERAL CHEST: CLINICAL HISTORY: Preop exam COMPARISON: 09/16/2023 FINDINGS: Unremarkable cardiomediastinal. Lungs clear. No effusion or pneumothorax. XR/XR chest 2V IMPRESSION: NO ACUTE CARDIOPULMONARY ABNORMALITY. Impression dictated by: Nikos Rivera M.D. 05/20/2025 12:42 PM Dictation Location: [place] [address] Electronically authenticated by: [id number] Y Date: 05/20/2025 12:42 Dictated By: Nikos Rivera M.D. Signed By: 05/20/25 1244 DD/ 1242 TD/TT: Mailroom Courier: Reason For Referral No Information Medications Medication SIG (Take, Route, Frequency, Duration) Notes Start Date End Date Status Metoprolol Tartrate 50 MG 1 tablet with food Orally Twice a day; Duration: 30 day(s) 06/04/2023UnknownOndansetron 4 MG1 tablet on the tongue and allow to dissolve Orally iztUGT3312/30/2024UnknowntiZANidine HCl 4 MG2 tablets Orally at bedtime; [...] alcohol in the p ast year? No Vzerai9ShghysgyatyiwjKxuvttqzYLESH-J (Standard) Question Answer Notes Did you have [...] W/U Status Risk Notes Problem Essential hypertension (22496526 ) Essential (primary) hypertension (I10) ActiveconfirmedProblemSeizure (12638898)Unspecified convulsions (R56.9)Active confirmedProblemLow back pain (975567238)Low back pain (M54.5)Activeconfirmed ProblemHypothyroidism (49963226)Hypothyroidism, unspecified (E03.9)Active confirmedProblemObstructive sleep apnea syndrome (disorder) (92307069) Obstructive sleep apnea (adult) (pediatric) (G47.33)ActiveconfirmedProblem Coronavirus infection (588756906)Coronavirus infection, unspecified (B34.2) ActiveconfirmedProblemHypo-osmolality and or hyponatremia (271043323)Hypo- osmolality and hyponatremia (E87.1)ActiveconfirmedProblemMyoclonus (10563364) Myoclonus (G25.3)ActiveconfirmedProblemMigraine without aura, not refractory (disorder) (099621324)Migraine, unspecified, not intractable, without status migrainosus (G43.909)ActiveconfirmedProblemHereditary disorder of nervous system (634293479)Hereditary and idiopathic neuropathy, unspecified (G60.9)Active confirmedProblemAcute exacerbation of chronic obstructive airways disease (589049442)Chronic obstructive pulmonary disease with (acute) exacerbation (J44.1)ActiveconfirmedProblemAnkle instability (602347)Other instability, left ankle (M25.372)ActiveconfirmedProblemArthralgia of the ankle and/or foot (584675616)Pain in left ankle and joints of left foot (M25.572)Activeconfirmed ProblemDisplacement of lumbar intervertebral disc without myelopathy (42539835) Other intervertebral disc displacement, lumbar region (M51.26)Activeconfirmed ProblemCervical radiculopathy (95479272)Radiculopathy, cervical region (M54.12) ActiveconfirmedProblemNeuralgia (29687385)Neuralgia and neuritis, unspecified (M79.2)ActiveconfirmedProblemFibromyalgia (238638083)Fibromyalgia (M79.7)Active 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) (97836314218244956)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)Active confirmedProblemShortness of breath (546249777)Shortness of breath (R06.02) ActiveconfirmedProblemSnoring (54208016)Snoring (R06.83)ActiveconfirmedProblem Dysphagia (30748533)Dysphagia, unspecified (R13.10)ActiveconfirmedProblem Weakness (80145796)Weakness (R53.1)ActiveconfirmedProblemSprain of left ankle (54296828948241188)Sprain of other ligament of left ankle, initial encounter (S93.492A)ActiveconfirmedProblemChest pain (95653847)Chest pain (R07.9)Active confirmedProblemFatigue (31291723)Fatigue (R53.83)ActiveconfirmedProblemMigraine variant with headache (disorder) (592556892)Migraine headache (G43.909)Active confirmedProblemHyperlipidemia (26215870)Hyperlipidemia (E78.5)Activeconfirmed ProblemHypertension (23126874)Hypertension (I10)ActiveconfirmedProblem Gastroesophageal reflux disease (460803072)GERD (gastroesophageal reflux disease) (K21.9)ActiveconfirmedProblemCervical radiculopathy (92209530)Cervical radiculopathy (M54.12)ActiveconfirmedProblemHypothyroidism (00315526) Hypothyroidism (E03.9)ActiveconfirmedProblemPalpitations (36635326)Palpitation (R00.2)ActiveconfirmedProblemRestless legs syndrome (91675385)Restless leg syndrome (G25.81)ActiveconfirmedProblemPneumonia (366766790)Pneumonia (J18.9) ActiveconfirmedProblemEdema (87811956)Edema (R60.9)ActiveconfirmedProblem Hypothyroid (23407016)Hypothyroid (E03.9)ActiveconfirmedProblemPeripheral venous insufficiency (27341904)Venous insufficiency (I87.2)ActiveconfirmedProblem Peripheral neuropathy (613155596)Peripheral neuropathy (G62.9)Activeconfirmed ProblemGout (79162948)Gout (M10.9)ActiveconfirmedProblemDyspnea (444706124) Dyspnea (R06.00)ActiveconfirmedProblemObstructive sleep apnea (56736660) Obstructive sleep apnea (G47.33)ActiveconfirmedProblemSyncope (257805719)Syncope (R55)ActiveconfirmedProblemHyponatremia (00109522)Hyponatremia (E87.1)Active confirmedProblemEsophageal reflux (068633518)Esophageal reflux (K21.9)Active confirmedProblemOsteoarthritis of knee (432741417)Knee osteoarthritis (M17.9) ActiveconfirmedProblemMigraine (10920747)Migraine (G43.909)Activeconfirmed ProblemBenign prostatic hyperplasia (411405315)BPH (benign prostatic hyperplasia) (N40.0)ActiveconfirmedProblemEpigastric pain (06511286)Epigastric pain (R10.13)ActiveconfirmedProblemGlaucoma (17768215)Glaucoma (H40.9)Active confirmedProblemIrritable bowel syndrome (92350221)IBS (irritable bowel syndrome) (K58.9)ActiveconfirmedProblemAllergic rhinitis (31347046)Allergic rhinitis (J30.9)ActiveconfirmedProblemAcute exacerbation of chronic obstructive airways disease (230859470)COPD exacerbation (J44.1)ActiveconfirmedProblem Prolapsed lumbar intervertebral disc (722928128)Lumbar disc herniation (M51.26) ActiveconfirmedProblemRight lower quadrant pain (185616111)Right lower quadrant abdominal pain (R10.31)ActiveconfirmedProblemDysphagia (68941526)Dysphagia (R13.10)ActiveconfirmedProblemAcquired hypothyroidism (432580299)Acquired hypothyroidism (E03.9)ActiveconfirmedProblemLocalized, primary osteoarthritis of the pelvic region and thigh (582222997)Primary osteoarthritis of left hip (M16.12)ActiveconfirmedProblemDiverticulitis (30003088)Diverticulitis (K57.92) ActiveconfirmedProblemLumbar radicular pain (2645196081)Lumbar radicular pain (M54.16)ActiveconfirmedProblemAlcoholism (3743686)Alcoholism (F10.20)Active confirmedProblemNear syncope (133333756)Near syncope (R55)ActiveconfirmedProblem Seizure disorder (389804685)Seizure disorder (G40.909)ActiveconfirmedProblem Fibromyalgia (521015865)Fibromyalgia (M79.7)ActiveconfirmedProblemDisplacement of lumbar intervertebral disc without myelopathy (41217249)Herniated lumbar disc without myelopathy (M51.26)ActiveconfirmedProblemIntrinsic asthma (825677664) Intrinsic asthma (J45.909)ActiveconfirmedProblemOverweight (347218119)Over weight (E66.3)ActiveconfirmedProblemMovement disorder (80404656)Movement disorder (G25.9)ActiveconfirmedProblemDiverticulitis of colon (514702797)Acute diverticulitis (K57.92)ActiveconfirmedProblemAcute gout (295219302)Acute gout (M10.9)ActiveconfirmedProblemIron deficiency anemia (92882480)Fe deficiency anemia (D50.9)ActiveconfirmedProblemGroin strain (343259062)Groin strain (S76.219A)ActiveconfirmedProblemAlcohol dependence (47966889)Alcohol dependence (F10.20)ActiveconfirmedProblemPeripheral neuropathy (366238678)Neuropathy, peripheral (G62.9)ActiveconfirmedProblemClosed fracture of neck of femur (777519668)Fracture of right hip (S72.001A)ActiveconfirmedProblemDisplacement of lumbar intervertebral disc without myelopathy (64504868)Disc displacement, lumbar (M51.26)ActiveconfirmedProblemGroin strain (289411877)Groin strain, right, initial encounter (S76.211A)ActiveconfirmedProblemGastroesophageal reflux disease (disorder) (098047595)Chronic GERD (K21.9)ActiveconfirmedProblem Leukocytosis (290402954)Elevated WBCs (D72.829)ActiveconfirmedProblemEssential hypertension (16437968)BP (high blood pressure) (I10)ActiveconfirmedProblem Benign prostatic hypertrophy without outflow obstruction (090362416)Benign prostatic hyperplasia without lower urinary tract symptoms (N40.0)Active confirmedProblemMalnutrition of moderate degree (Correa: 60% to less than 75% of standard weight) (09502271)Moderate protein malnutrition (E44.0)Activeconfirmed ProblemSecond degree atrioventricular block (959020961)2nd degree AV block (I44.1)ActiveconfirmedProblemDisease caused by Severe acute respiratory syndrome coronavirus 2 (disorder) (025010961)COVID-19 virus infection (U07.1)Active confirmedProblemHeadache (65991950)Headache, unspecified (R51.9)Activeconfirmed ProblemLow back pain (667640940)Low back pain, unspecified (M54.50)Active confirmed Vital Signs Temperature 98.7 degrees Fahrenheit 11/17/2024 Blood pressure pcxzvdtaj64 mm Hg04/22/20253287Erjqyp09 in04/22/2025lood pressure kxeiwnwu360 mm Hg04/22/20252856Unllrs412 lbs1MI27.04 kg/m204/22/2025 Encounters Encounter Location Date Provider Diagnosis [address] [address] 11/06/2024 Michael Hoy Acute bronchitis, unspecified organism J20.[address] [address] 11/24/2024 Michael Hoy Groin strain, right, initial encounter S76.211A [address] [address] 12/23/2024 Michael Hoy Edema R60.[address] [address] 02/10/2025 Michael Hoy Gastroenteritis K52. 9 ; Essential (primary) hypertension I10 ; Obstructive sleep apnea (adult) (pediatric) G47.33 ; Obstructive sleep apnea G47.33 and COPD exacerbation J44.[address] [place] [address] 04/22/2025 Michael Hoy Right lower quadrant abdominal pain R10.31 [facility] [address] [place] [place] [address] 12/30/2024 Michael Hoy Gastroenteritis K52. 9 [facility] [address] [place] [place] [address] 11/17/2024 Michael Hoy Acute bronchitis, unspecified organism J20.9 [facility] [address] [place] [place] [address] 11/14/2024 Michael Hoy [facility] [place] [place] [address] 03/17/2025Doug HoyEssential (primary) hypertension [place] [address] [place] [address]/07/2025Doug Hoy Unspecified convulsions R56.9 ; BP (high blood pressure) I10 ; Hypothyroid E03.9 ; Screening for prostate cancer Z12.5 and Screening for colon cancer Z12.11 [facility] [place] [place] [address] 04/23/2025[facility] [place] [place] [address]/29/2025Doug HoyUnspecified convulsions R56.9 Assessments Encounter Date Diagnosis (ICD Code) Assessment Notes Treatment Notes Treatment Clinical Notes Section Notes 11/06/2024 Acute bronchitis, unspecified or ganism (ICD-10 - J20.9) Rest and drink more liquids, especially water. You may use a humidifier or vaporizer to help keep the drainage moist. Tewg-jqy-qxjuhml Nasal Saline may help the stuffy and runny nose. Use Ibuprofen and or Tylenol as needed for fever, chills, body aches or pain. Children 5 years old should not be given vxme-qvr-xezryck cough and cold medications such as guaifenesin and dextromethorphan. If you're over age 5, you may try wekb-mos-rpdwacf cold medications such as guaifenesin and dextromethorphan, [...] go to the emergency room or call [address]/ute bronchitis, unspecified organism (ICD-10 - J20.9)Rest and drink more liquids, especially water. You may use a humidifier or vaporizer to help keep the drainage moist. Bwfx-lom-quaemsh Nasal Saline may help the stuffy and runny nose. Use Ibuprofen and or Tylenol as needed for fever, chills, body aches or pain. Children 5 years old should not be given fper-xzl-kywimxd cough and cold medications such as guaifenesin and dextromethorphan. If you're o boni age 5, you may try jxdn-twe-uxwcech cold medications such as guaifenesin and dextromethorphan, [...] go to the emergency room or call [address]/06/2025Grdany strain, right, initial encounter (ICD-10 - S76.211A)12/23/2024Edema (ICD-10 - R60.9)12/30/2024Gastroenteritis (ICD-10 - K52.9)Get plenty of rest. Stay hydrated by sucking on ice chips or taking small sips of water. You can also try drinking clear soda, clear broths or noncaffeinated sports drinks. Stop eating solid foods for a few hours to let your stomach settle. East back into eating by eating bland, sull-sm-azduwv foods like crackers, toast, gelatin, bananas, rice and chicken. Try to avoid foods/substances including dairy products, caffeine, alcohol, nicotine and fatty or highly seasoned foods. Medications such as i buprofen or tylenol can make your stomach more upset, so use sparingly if at all. Also avoid ixep-tip-xosgluv anti-diarrheal medications because it can make it harder for your body to eliminate the virus.02/10/2025Gastroenteritis (ICD-10 - K52.9)02/10/2025Essential (primary) hypertension (ICD-10 - I10)Cleared for OR 04/22/2025Right lower quadrant abdominal pain (ICD-10 - R10.31)03/17/2025 Essential (primary) hypertension (ICD-10 - I10)04/21/2025Unspecified convulsions (ICD-10 - R56.9)05/13/2025Unspecified convulsions (ICD-10 - R56.9)04/21/2025P (high blood pressure) (ICD-10 - I10)02/10/2025Obstructive sleep apnea (adult) (pediatric) (ICD-10 - G47.33)02/10/2025Obstructive sleep apnea (ICD-10 - G47.33) 04/21/2025Hypothyroid (ICD-10 - E03.9)04/21/2025Screening for prostate cancer (ICD-10 [...] 2_3 VIEWS 01/11/2024 THYROID PANEL (T4/TSH/FREE T3) 5 ECHOCARDIO M/2D COMPLETE 01/01/2023 PSA, SCREENING 04/21/2025 Next Appt Details Provider Name:Michael Lakhani, 10:45:00 AM, [address] [place], [address], Insurance Providers Payer Name Payer Address Payer Phone Subscriber Number Group Number Insured Name Patient Relationship to Insured Coverage Start Date Coverage End Date MEDIC[place] [address] [place] [address] [id number] Dontrell Poole - patient is the [id number] 2018 Medications Administered Medication Instructions Date of Administration Dosage Notes Dexamethasone, 4mg/mL mgKenalog-40020 mg120 mgKetorolac Otszfdaumfwb23/10/2023 60 mgtoradol 60 mgKetorolac Yhhegpajukyz64/19/202360 di04Itjlxdgqv Tromethamine 0 qjFdmmzji54/10/017966 mg60 mgOrphenadrine Ofsvpsd40 mg60 Medical (General) History Medical History History [...] Plates in Back 2011 Mesh in Heart 1999 cribiform implant 2008 cataract excisional biopsy sebaceous cyst right c hest wall 12/26/2017 Loop recorder 10/2023 Right hip replacement 2024 Hospitalization History Reason Date(Month/Year) Chest Pain 05/2023 Syncope 04/2023 Fall 11/2022 Chest Pain 12/2021 Bronchitis 03/2022
--- OUTSIDE RECORDS SUMMARY | 2025-05-22 13:51 | XMS_ITS | Clinical Summary ---
Author Organization [facility] Address [address] [place] [address] Care Team Providers Care Shipping And Receiving Material Handler Name Role Phone Patrice Guadalupe MD Primary Care Provider [phone] Allergies Active AllergyReactionsCriticalityNoted DateCommentsPenicillinsAngioedema 04/20/20238563QqxwjtfzVvwariv05/29/7149RivwnewafrEipahzflchxSmdf85/06/2023 Medications MedicationSigDispense QuantityRefillsLast FilledStart DateEnd DateStatus topiramate [...] morning and at bedtime. 60 tablet 10/15/2023ctive Additional Information Patient taking differently: 50 mgoralDaily, Reported on 05/22/2025 levothyroxine (Synthroid, Levoxyl) 125 mcg tablet Take [...] time each day at the same time.Active atorvastatin (Lipitor) 10 mg tablet Take 10 mg by mouth in the morning.12/01/2024tive isosorbide mononitrate ER (Imdur) 30 mg 24 hr tablet Take 30 mg by mouth in the morning.5Active triamcinolone (Kenalog) 0.1 % cream Apply 0.01 Applications topically two times daily.5Active Active Problems ProblemNoted DateDiagnosed DatePre-op nfdyztyuuj21/07/2025vascular necrosis of bone of right hip05/21/2025AD (coronary artery disease)05/21/2025losed fracture of neck of femur05/21/2025losed subcapital fracture of right femur 05/21/2025Iron deficiency bkpfhu2105/21/20254159Xhbzwiqwmfgt89/06/2025Moderate protein ksnpigjqnlzj03/06/7438Pfrkqcxyfhib49/06/2025Primary localized osteoarthritis of pelvic region and thigh05/21/2025Rash107/21/2024Right lower quadrant pain 05/21/2025Right shoulder pain05/21/2025S/P total hip lyoesshahfcu99/06/2025 Egesvhx9805/21/2025Stasis ezlscwjlfu74/06/2025Pure uhqpygwujnnzjfzsnkva99/19/2025 Osteoarthritis of knee03/05/20246862Aqnelkxoru61OVID-19007/17/2023 07/17/20234018Cccsiakezcjnds07ysphagia Shortness of oytalh10EdemaEpigastric pain Groin mnqcpm04Lumbar radicular pain Other instability, left ankleOther specified congenital deformities of feetain in left ankle and joints of left footneumoniarimary osteoarthritis of left hipSprain of left ankle07/17/2023 07/17/2023Syncope and dyieoodi86/02/2024 Assessment & Plan (03/28/2024 10:08 AM EDT): Denies any episodes of syncope or collapse since last visit no seizure activity states overall he is doing well. Adrenal ycfrbuazkocxv76/10/2023Mobitz (type) I (Wenckebach's) atrioventricular block04/20/2023 Assessment & Plan (03/28/2024 10:08 AM EDT): Event monitor reviewed no concerning arrhythmias, heart block or pauses Acute goutHypertensionllergic rhinitis enign prostatic hyperplasia without lower urinary tract yoadzvbk02ervical nhjhlwrummfzm38 Diverticulitis of colonFibromyalgia Rbbmcyu26astroesophageal reflux ggdfocd71 Kjkuuyot04Hypo-osmolality and mmkxyagmtdzf73 Intrinsic xsryxl20Irritable bowel gikvmfxd76 Low back painMigraine, unspecified, not intractable, without status fpyiumferry88Movement nbcoctgv14 Hereditary and idiopathic neuropathy, gsyhikizhij33Myoclonus Obstructive sleep apnea kydxdrky20isc displacement, gsmjfd61Overweighteripheral venous zkjpisthergks58Restless legs poonhoji42/06/2023 04/20/20230856Fsxvfpn68/06/2023cquired lsrtxgcijxwlxn74Recurrent bnksytob61/08/2017Depressive disorder, not elsewhere hffbgvxcve10/16/2009 04/20/2023izziness and pclfbswqk59eneralized osteoarthrosis, unspecified site Overview (04/20/2023): L4-L5 s/p Neck surgery 2000 Mixed rkuyuoxaiqpucg67 Assessment & Plan (03/28/2024 10:07 AM EDT): Lipid abnormalities are well-controlled with Lipitor 10 mg daily Liver function normal No concerning symptoms Ostium secundum type atrial septal hqvyxy63 Overview (04/20/2023): OSH Echo 10/20/2008 per Patient [...] history of tobacco use, presenting hazards to pwusgc4910/29/2008 04/20/2023 Overview (04/20/2023): Smoke <1PPD x23 years quit for a few years and now currently smokes <1PPD Atypical chest pain Overview (07/17/2023): Stress Test 2 [...] GI Other diseases of lung, not elsewhere fbkxklvppx124Benign essential wzblwsfjvqzy47/16/2009 Assessment & Plan (03/28/2024 10:07 AM EDT): Hypertension is currently well-controlled 132/83 Denies any lightheadedness, dizziness, syncope. Continue metoprolol and isosorbide. Resolved Problems ProblemNoted DateDiagnosed DateResolved DateNSTEMI (non-ST elevated myocardial infarction)HyponatremiaOPD exacerbation Hypokalemia Encounters DateTypeDepartmentCare KwlzNmwwoxtmfyx39/07/2025 1:00 PM ESTOffice Visit [facility] [address] [place] [phone] Reid Shea MD Pre-op evaluation (Primary Dx); Atypical chest pain; APPIAH (dyspnea on exertion); Shortness of breath; Syncope, unspecified syncope type; Benign essential hypertension; Mixed hyperlipidemia; Alcoholism (CMS/HCC)05/10/2025Orders Only [facility] [address] [place] [phone] Grabiel Collado MD 04/27/2025 7:30 AM EDTAncillary Procedure [facility] [address] [place] [phone] Awareness of zfhgpaznsr91/25/2025 2:00 PM EDTAncillary Procedure [facility] [address] [place] [phone] Awareness of /25/2025Orders Only [facility] [address] [place] [phone] rGabiel Collado MD from Last 3 Months Family History RelationNameStatusCommentsFatherDeceasedMotherAlive Social History Tobacco UseTypesPacks/DayYears UsedDateSmoking Tobacco: HcfdksIinuqlgdtg2338737 - mokeless Tobacco: FormerChewQuit: 1985 Tobacco Cessation:Counseling Given: Not Answered Alcohol UseStandard Drinks/RckiRclctvcuGkq06 (1 standard drink = 0.6 oz pure [...] file05/27/2023Sex and Gender InformationValueDate RecordedSex Assigned at TpwneKxlk88/07/2023 10:36 AM EDTLegal GxmKade42/28/2022 1:37 PM ESTGender LekgexpdHzhk39/07/2023 10:36 AM EDTSexual Orientation Heterosexual or Jfqqjzcg31/07/2023 10:36 AM EDT Last Filed Vital Signs Vital SignReadingTime TakenCommentsBlood Ypvmcqzb766/8611 1:06 PM EST Fvrze917805/22/2025 1:06 PM BNYQlhmtjcpzqw07.6 ??C (97.9 ??F)05/28/2023 5:00 PM ESTRespiratory Tqbj852710/15/2023 12:13 PM EDTOxygen Zsmibtptpm95%05/22/2025 1:06 PM ESTInhaled Oxygen Concentration--Ouffuq230 kg (223 lb)10/01/2024 12:40 PM EDT Gjmslr362.4 cm (6' 1 )05/22/2025 1:06 PM ESTBody Mass Index29.42010/01/2024 12:40 PM EDT Plan of Treatment Health MaintenanceDue DateLast DoneCommentsCT Pvlpirjohpxo1965Colonoscopy 1965Colorectal Cancer Cqmjxxtzb1965FIT-DNA1965FIT1965 FOBT1965Medicare Annual Wellness (AWV)1965Lrqdglylglwvb1965 Depression Jnbxsozgk37/23/1977Adult Uiqusom4402/04/1987Zoster Vaccines (1 of 2) 2015Pneumococcal Vaccine: Pediatrics (0 to 5 Years) and At-Risk Patients (6 to 64 Years) (2 of 2 - PCV)COVID-19 Vaccine (1 - season)2025Influenza Vaccine (#1)51, 07/02/2021, [...] your diet plan as advised by your underground conduit installer DietYesFletcher, Leona, BRISEYDA Follow your diet plan as advised by your underground conduit installer Leona Etienne, BRISEYDA Medical Devices ImplantedTypeAreaManufacturerDevice IdentifierShelf Expiration DateModel / Serial / LotMonitor,Cardiac,Lux,Dxii+[facility] - [id number] - [id number] Implanted:Qty: 1 on 10/15/2023 by Thong Gabriel [facility]Implant[facility] Loop RecorderSalem Hospital02/25/2025M312 / [id number] / Procedures Procedure NamePriorityDate/TimeAssociated DiagnosisCommentsECG 12-LEADRoutine 05/22/2025 1:46 PM EST Pre-op evaluation Atypical chest pain APPIAH (dyspnea on exertion) ECG 12 LEAD UNIT RMQOELDORDycyhbw53/07/2025 1:05 PM EST Pre-op evaluation CARDIAC DEVICE CHECK CHECK - TPAHOABlpjztt53/27/2025 5:32 PM EDT Awareness of heartbeats CARDIAC DEVICE CHECK - REMOTE - LOOP RECORDER (ILR)Gfrleog4605/10/2025 12:00 AM EDTCARDIAC DEVICE CHECK CHECK - UWMCFDSahgaui66/27/2025 3:13 PM EDT Awareness of heartbeats CARDIAC DEVICE CHECK - REMOTE - LOOP RECORDER (ILR)Evovzyz0403/09/2025 12:00 AM EDTfrom Last 3 Months Results * ECG 12 lead (05/22/2025 1:46 [...] ProviderResult TypeResult Danita ESCAMILLA ORDERABLESFinal Result * CARDIAC DEVICE CHECK - REMOTE - LOOP RECORDER (ILR) (05/11/2025 5:32 PM EDT) Only the most recent of2 resultswithin the time period is included. Specimen (Source)Anatomical Location / LateralityCollection Method / Volume Collection TimeReceived Time Narrative Authorizing ProviderResult TypeResult StatusBlair Cabrera MDCV IMPLANTABLE CARDIAC DEVICE PROCEDURESFinal ResultPerforming OrganizationAddressCity/State/ZIP Code Phone Number CPACS * Cardiac device check - Remote loop recorder (ILR) (05/10/2025 12:00 AM EDT) Only the most recent of2 resultswithin the time period is included. Anatomical RegionLateralityModalityOtherSpecimen (Source)Anatomical Location / LateralityCollection Method / VolumeCollection TimeReceived Time05/10/2025 Narrative Authorizing ProviderResult TypeResult StatusSaharley Roberta Collado [facility] IMPLANTABLE CARDIAC DEVICE PROCEDURESFinal Result from Last 3 Months Insurance Advance Directives * Full Code (Latest Code Status on File) Date ActivatedDate JhbgzlybzqrWqpldkys53/12/2023 11:30 PM05/28/2023 7:45 PM * Full Code Date ActivatedDate WtqlwiuaoshQxlkpvkq75/6/2023 7:26 PM10 6:28 PM Care Teams Team MemberRelationshipSpecialtyStart DateEnd Date Patrice Guadaluep MD [address] [facility] [address] [address] PCP - Byvnyyn79/7/23
--- OUTSIDE RECORDS SUMMARY | 2025-05-22 13:52 | XMS_ITS | Clinical Summary ---
Author Organization [facility] Address [address] [place] [address] Care Team Providers Care Veterinarian Epidemiologist Name Role Phone Unavailable Primary Care Provider Unavailabl e Allergies Active AllergyReactionsCriticalityNoted DateCommentsPenicillinsAngioedema, Swelling,Rayglcs5910/29/2008 Swollen throat Medications MedicationSigDispense QuantityRefillsLast FilledStart DateEnd [...] 2 TABLETS BY MOUTH EVERY DAY AT QKGVDTI27/01/2025Active Topamax 100 MG tablet 1 tablet in [...] Problems No known active problems Encounters DateTypeDepartmentCare OikzOkpeqeqfnib17/10/2025 11:20 AM EDTOffice Visit [facility] [address] [place] [address] Katie Rosen PA Stasis dermatitis of both legs (Primary Dx); Encounter for removal of sutures; Rash and other nonspecific skin rtmcwqme66/10/2025amboo flowsheet [facility] [address] [place] [address] Katie Rosen PA 04/24/20259944Hbdtda52/08/2025Results [facility] [address] [place] [address] Katie Rosen PA Dermatopathology exam04/13/2025 11:10 AM EDTOffice Visit [facility] [address] [place] [address] Katie Rosen PA Rash and other nonspecific skin cdhedepn52/29/2025amboo flowsheet [facility] [address] [place] [address] Katie Rosen PA 04/13/20258599Ixgitq60/25/2025Telephone [facility] [place] [facility] [address] [place] [phone] Liliya Mayfield LPN Care Tabawyfwyosc59/22/2025 12:20 PM EDTOffice Visit [facility] [address] [place] [address] Katie Rosen PA Rash and other nonspecific skin eruption (Primary Dx)03/06/2025amboo flowsheet [facility] [address] [place] [address] Katie Rosen PA 03/06/2025Travelfrom Last 3 Months Social History Tobacco UseTypesPacks/DayYears UsedDateSmoking Tobacco: FormerCigarettes Smokeless Tobacco: Never Tobacco Cessation:Counseling Given: Not Answered Alcohol UseStandard Drinks/WeekCommentsYes0 (1 standard drink = 0.6 oz pure alcohol)Sex and Gender InformationValueDate RecordedSex Assigned at BirthNot on fileLegal FsyObxr4011/13/2022 8:33 PM EDTGender IdentityNot on fileSexual OrientationNot on file Last Filed Vital Signs Vital SignReadingTime TakenCommentsBlood Zkyzsvvq574/3047904/25/2022 12:00 PM EDT Pulse--Temperature--Respiratory Rate--Oxygen Saturation--Inhaled Oxygen Concentration--Tsrdkx461 kg (238 lb)04/25/2022 12:00 PM YZRFvwoxi710 cm (6' 2 ) 04/25/2022 12:00 PM EDTBody Mass Index30.561 12:00 PM EDT Plan of Treatment DateTypeDepartmentCare Team (Latest Contact Info)Hlkelhhmmuv63/11/2025 10:50 AM ESTOffice Visit [facility] [address] [place] [address] Katie Rosen PA [address] [place] [address] Procedures Procedure NamePriorityDate/TimeAssociated DiagnosisCommentsSKIN / NAIL BIOPSY Cvkyujs5204/13/2025 11:11 AM EDT Rash and other nonspecific skin eruption DERMATOPATHOLOGY NWAMRueiwlq41/29/2025 12:00 AM EDT Rash and other nonspecific [...] for: H&E Photo taken Authorizing ProviderResult TypeResult [facility] PROCEDURE ORDERABLESFinal Result * Dermatopathology exam (04/13/2025 12:00 AM EDT)ComponentValueRef RangeTest MethodAnalysis TimePerformed AtPathologist SignatureSPECIMEN TYPE SPECIMEN: LEFT LOWER LEG - ANTERIOR [facility] ICD10 CodeI83.755HPBFNO DIAGNOSTICSPROTOCOLP - PUNCHAURORA DIAGNOSTICSFinal DiagnosisSPONGIOTIC DERMATITIS WITH [...] inflammation. ??There is mild epidermal spongiosis. [facility] ZAXUGAPDEDAKHT34167*1[facility] DIAGNOSTICSSpecimen (Source)Anatomical Location / LateralityCollection Method / VolumeCollection TimeReceived TimeSkin Topography unknown / Hkxpchp4604/13/2025 11:11 AM EDTComment:Differential Diagnosis: scabies vs. Stasis dermatitis vs. Atopic dermatitis vs. Contact dermatitis Narrative Authorizing ProviderResult TypeResult StatusR[facility] PATHOLOGY ORDERABLESFinal ResultPerforming OrganizationAddressCity/State/ZIP CodePhone Number [facility] from Last 3 Months Insurance
--- OUTSIDE RECORDS SUMMARY | 2025-05-22 13:52 | XMS_ITS | Clinical Summary ---
Author Organization [employer] Address [id number] [address] [place] [address] Care Team Providers Care Lumber Press Operator Name Role Phone Patrice Guadalupe MD Primary Care Provider [phone] Allergies Active AllergyReactionsCriticalityNoted NqhmVwrwciuxNiocbchmtwc69/08/2017 Swollen throat Methheatfi70/08/2017 Swollen throat and hives Medications MedicationSigDispense QuantityRefillsLast [...] times a day.Active Active Problems ProblemNoted DateDiagnosed LlaqBttfcdnf87/08/2017Recurrent mbjcxevw62/08/2017 Migrainous headache without aura07/23/2016COPD (chronic obstructive pulmonary disease)07/23/2016Acquired sdajtpykrzgxnr85/08/2017Benign essential hypertension 07/23/2016 Social History Tobacco UseTypesPacks/DayYears UsedDateSmoking Tobacco: Every DayCigarettes Alcohol UseStandard Drinks/WeekCommentsNot Asked0 (1 standard drink = 0.6 oz pure alcohol)recently quit drinking in Mar. would drink average 5-8 beers a day ChildcareAnswerDate LraovzhtHulrnzdgcTtkssle62/12/2019EmploymentAnswerDate KjlavsooGabcxnamzzTysqeke92/12/2019Purpose - LifeAnswerDate RecordedPurpose and direction in wbzkPqglmqy23/11/2021Sex and Gender InformationValueDate Recorded Sex Assigned at BirthNot on fileLegal QsbFsst2202/18/2015 11:37 AM EDTGender IdentityNot on fileSexual OrientationNot on file Last Filed Vital Signs Vital SignReadingTime TakenCommentsBlood Pectvrdo163/8407/26/2016 7:55 AM EST Kmqsr781207/26/2016 7:55 AM NLCCmyitocnlms61.3 ??C (97.3 ??F)07/26/2016 7:55 AM ESTRespiratory Jhqn036607/26/2016 7:55 AM ESTOxygen Ciurptdvrd36%07/26/2016 7:55 AM ESTInhaled Oxygen Concentration--Qchjnm82.6 kg (201 lb 15.1 oz)07/26/2016 5:01 AM OGMXftvle293.4 cm (6' 1 )07/23/2016 5:10 PM ESTBody Mass Index26.64 07/23/2016 5:10 PM EST Plan of Treatment Not on file Medical Devices Not on file Insurance Advance Directives * Full Code (Latest Code Status on File) Date ActivatedDate InactivatedComments07/23/2016 6:19 PM07/26/2016 2:20 PM Care Teams Team MemberRelationshipSpecialtyStart DateEnd Date Patrice Guadalupe MD PCP - General07/23/16
--- OUTSIDE RECORDS SUMMARY | 2025-05-22 13:53 | XMS_ITS | CCD ---
Author Organization [facility] CliniSyde Care Team Providers Care Land Economist Name Role Phone LESVIA ., DR GLASGOW Attending Unavailable HOY ., DR GLASGOW Primary Care Unavailable HOY ., DR GLASGOW Admitting Unavailable PAY ., DR SAMUEL Admitting Unavailable PAY ., DR SAMUEL Attending Unavailable HOY ., DR GLASGOW Primary Care Unavailable HOY ., DR GLASGOW Consulting Unavailable GRECHNY ., GISSELLE MEZA Consulting Unavailabl e GUADALUPE, JULIO CESAR Consulting Unavailable HOY ., DR GLASGOW Attending [...] VIOLETECK, DR SHIVA Love Admitting Unavailabl e BROWNJULIO CESAR Consulting Unavailable PAY ., DR SAMUEL Consulting [...] Care Provider Ammon Cochran DO Admit Provider Justin Garcia MD Other Provider Kassy Mckay MD Other Provider Nishant Ceja DO Other Provider Janki Lam MD Other Provider Rehan Thomas DO Other Provider Luis Alberto Hearn MD Attending Provider [phone] Maria Del Rosario Hernandez MD Other Provider Jose Antonio Camara MD Other Provider Gloria Arrington APRN Other Provider Levi Waterman DO Other Provider [phone] Paco Jimenez MD Other Provider [phone] Paco Jimenez MD Admit Provider Tony CARD, Paco Ace Attending Provider Dave RN, Padmini Other Provider Unavailable Yony RN, Annemarie Other Provider Unavailable Rah RN, Angle Other Provider Unavailable Anushka RN, Cindy Other Provider Unavailable Lux RN, Lena Other Provider Unavailable Jax RN, Liv Other Provider Unavailable Long CARD, Yonis Other Provider Kenzie Duffy DO Other Provider Bradley CARD, Tom Other Provider Connor Oliveros DO Other Provider Dhiraj CARD, Luis Alberto Other Provider [phone] Nick CARD, Brie Other Provider Chula CARBAJAL, Ammon Other Provider Oscar CARD, Phil Other Provider Unavailable Danyell Daniels APRN Other Provider [phone] Tracie CARD, Yakov Other Provider Juan Pablo Hatch MD Other Provider Ruperto CARD, Leeanna Other Provider Unavailable Vin Moran MD Other Provider Ammon Cochran DO Other Provider Reyes Tracey MD Other Provider Kyle Huerta MD Other Provider Kailey NET COORDINATOR-C, Sis Granados Other Provider Justyn QUILES, Yamilet Hopkins Other Provider Unavailable J Luis Hebert MD Other Provider Jayy CARD, Fermín Other Provider Tino Calixto MD Other Provider Nicole CARD, Marline Other Provider Unavailable Marycruz CARD, Yan Other Provider Zaire DO, Trinity Other Provider Sandra DO, Andres R Other Provider Reshma Marin APRN Other Provider Richardson DOAz Other Provider Roselyn CARD, Luciana Hopkins Other Provider Diana Forde APRN Other Provider Lorena Hernandez APRN Other Provider David CARD, Amaury Other Provider Unavailable Inna CARD, Ruben Granados Other Provider Hussein DO, Michael Ramos Other Provider Lesley Rea DO Other Provider Marily CARD, Gavin Campbell Other Provider Hernandez Sampson MD Other Provider Shannon QUILES, Marti Other Provider Unavailable Matthew CARD, Ivonne Other Provider Nadege CARD, Ander Other Provider Jose Antonio Dacosta MD Other Provider [phone] Phil Shaikh MD Other Provider Juan M Elise MD Other Provider Praveena Mast APRN Other Provider Yeimi Smith APRN Other Provider Mariam Moore RN Other Provider Unavailable Jose Antonio Camara MD Attending Provider Nishant Ceja DO Attending Provider [phone] Nishant Ceja DO Attending Provider Luis Alberto Hearn MD Other Provider [phone] Jose Antonio Camara MD Attending Provider Paco Jimenez MD Attending Provider [phone] Levi Waterman DO Other Provider UnavailJuan Pablo Diamond MD Other Provider Unavailable Marily CARD, Tino Other Provider Unavailable Marycruz CARD, Yan Other Provider Unavailable Michael Savage DO Other Provider Unavailable Nadege CARD, Ander Other Provider Unavailable Reina CARD, Ammon Attending Provider Ammon Huang MD Other Provider Brenna CARBAJAL, Nishant Cabrales Admit Provider [phone] Pee Lakhani MD Primary Care Provider [phone] Paco Jimenez MD Other Provider Nishant Ceja DO Attending Provider [phone] Brenna CARBAJAL, Nishant Cabrales Other Provider [phone] Unavailable Primary Care Provider UnavailPee Magallanes Primary Care Unavailable Justin Garcia Consulting Unavailable Ammon Cochran Admitting Unavailable Luis Alberto Hearn Attending Unavailable Kassy Mckay Consulting Unavailable Nishant Ceja Consulting Unavailable Janki Lam II Consulting UnavailRehan Chatman Consulting Unavailable Maria Del Rosario Hernandez Consulting Unavailable Jose Antonio Camara Consulting Unavailable Gloria Arrington Consulting Unavailable Levi Waterman Jr Consulting UnavailPaco Lee Consulting Unavaila Paco Payne Admitting Unavaila [...] Consulting Unavailable Ammon Cochran Consulting Unavailable Reyes Tracye Consulting Unavailable Kyle Huerta Consulting Unavailable Sis Bonner Consulting Unavailable Yamilet Alejandra Consulting Unavailable DoameJ Luis giang E Consulting Unavailab Fermín Verde Consulting Unavailable Tino Calixto Consulting Unavailable Marline Rivera Consulting Unavailable Yan Joel Consulting Unavailable Trinity Tai Consulting Unavailable Andres Flores Consulting Unavailable ObReshma sherman Consulting Unavailable Az Bai Consulting Unavailable DaromaLuciana vernon Consulting Unavailable Diana Forde Consulting Unavailable Lorena Hernandez Consulting Unavailable Amaury Hernandez Consulting Unavailable Ruben Keith Consulting Unavailable Michael Savage Consulting Unavailable Lesley Rea Consulting Unavailable Gavin Calixto Consulting Unavailable Hernandez Sampson Consulting Unava ilable Marti Ortega Consulting Unavailable Ivonne Castro Consulting Unavailable Ander Light Consulting Unavailable Jose Antonio Dacosta Consulting Unavailable Phil Shaikh Consulting Unavailable Juan M Elise Consulting Unavailable Praveena Mast Consulting Unavailable Yeimi Smith Consulting Unavaila Mariam Gardner Consulting Unavailable Pee Lakhani Primary Care Unavailable Nishant Ceja Attending Unavailable Nishant Ceja Admitting Unavailable Pee Lakhani Primary Care Unavailable Nishant Ceja Attending Unavailable Nishant Ceja Admitting Unavailable Ammon Huang Consulting Unavailable Pee Lakhani Primary Care Unavailable Nishant Ceja Attending Unavailable Nishant Ceja Admitting Unavailable FRANCES ROSEN Attending Unavailable FRANCES ROSEN Attending Unavailable FRANCES ROSEN Attending Unavailable OMER PERKINS Referring Unavailable ELISABETH VIDAL Attending Unavailable BARBARA WILLS Referring Unavailable MARITZA, JYOTI Referring Unavailable ELMA BARBARA Referring Unavailable ELMA, BARBARA Referring Unavailable MARITZA, JYOTI Referring Unavailable ELMA, BARBARA Referring Unavailable MARITZA, JYOTI Referring Unavailable MARITZA, JYOTI Referring Unavailable ELMA, BARBARA Referring Unavailable MARITZA, JYOTI Referring Unavailable Pee Lakhani MD Primary Care Provider Nishant Ceja DO Attending Provider [phone] Allergies Allergy ClassificationReported Allergen(s)Allergy TypeDate of OnsetReaction(s) Facility (11 sources)Penicillins; Translations: [PENICILLINS]Drug allergy (disorder) 58-74-9746Ulisdsaz of Throat, RashThe [facility] (11 sources)strawberry allergenic extract; Translations: [STRAWBERRY]Drug Vjqwhjv75-89-6253Dfthjno Reaction, HivesThe [facility] (10 sources)Procaine; Translations: [procaine]Drug Tkkropt97-16-7937Xkvzbzp ReactionSt. Rita'S Hospital (6 sources)PenicillinsDrug Cisjdhw98-54-0085Ikfvbdjkdo, Swelling, UnknownNOMS Healthcare (1 source)PenicillinsDrug allergy (disorder)11-70-8979HtpldccemSt. Rita'S [facility] Repository (1 source)strawberry allergenic extractDrug Fxcayni91-42-3771AeiivhomfSt. Rita'S Hospital Repository Medications Current Medications MedicationDrug Class(es)DatesSig (Normalized)Sig (Original)acetaminophen 500 mg oral tablet (19 sources)Start: 12-03-2024 End: 98-63-6487ceft 2 tablets by mouth every eight hours as needed for pain Acetaminophen 500 mg Tablet Active 1000 MG PO Q8H as needed for pain 180 30 0 December 12, 2024 1:20pmComplies with drug therapyalbuterol 0.83 mg/ml inhalation solution (6 sources)beta2-Adrenergic Agonistalbuterol (2.5 MG/3ML) 0.083% nebulizer solution 3 mL Inhalation four times a day PRN for 30 days Activeascorbic acid 500 mg oral tablet (18 sources)Vitamin CStart: 12-03-2024 End: 98-58-1017udti 1 tablet by mouth twice daily at mealtimeAscorbic Acid (Vitamin C) (Vitamin C) 500 mg Tablet Active 500 MG PO Twice daily with meals 14 7 0 December 12, 2024 1:20pm Complies with drug therapyaspirin 81 mg chewable tablet (20 sources)Platelet Aggregation Inhibitor, Nonsteroidal Anti-inflammatory Drug Start: 25-60-6618dmig 1 tablet by mouth twice dailyAspirin 81 mg tablet,chewable Active 81 MG PO Twice daily 74 37 0 February 11, 2025 12:00am Complies with drug therapyStart: 12-01-2024 End: 96-46-8754jexx 1 tablet by mouth twice dailyAspirin 81 mg tablet Discontinued 81 MG PO Twice daily December 01, 2024 12:00am December 12, 2024 1:20pm aspirin 81 MG chewable tablet 81 mg 1 (one) time each day at the same time Activeatorvastatin 10 mg oral tablet (15 sources)HMG-CoA Reductase InhibitorStart: 36-26-4416fwdy 1 tablet by mouth at bedtimeAtorvastatin 10 mg tablet Active 10 MG PO Bedtime December 01, 2024 12:00am Complies with drug therapycalcium carbonate 1500 mg / cholecalciferol 500 unt oral capsule (18 sources)Vitamin DStart: 12-03-2024 End: 05-13-6801mywb 1 capsule by mouth twice dailyCalcium Carbonate-Vitamin D3 (Calcium 600 With Vitamin D3) 600 mg-12.5 mcg (500 unit) capsule Active 1 CAP PO Twice daily 60 0 December 12, 2024 1:20pm Complies with drug therapy cyclobenzaprine hydrochloride 10 mg oral tablet (4 sources)Muscle RelaxantStart: 83-99-1558befk 5-10 mg by mouth every eight hoursCyclobenzaprine 10 mg tablet Active 5 - 10 MG PO Q8H 30 14 0 February 11, 2025 12:00am Complies with drug therapydiphenhydrAMINE hydrochloride 25 mg oral capsule (9 sources)Histamine-1 Receptor AntagonistStart: 36-77-7808rgia 1 capsule by mouth once daily at bedtimeDiphenhydramine Hcl (Allergy (Diphenhydramine)) 25 mg capsule Active 25 MG PO Daily at bedtime December 01, 2024 12:00am Complies with drug therapydocusate sodium 100 mg oral capsule (4 sources)Start: 29-67-3750iwzq 1 capsule by mouth twice dailyDocusate Sodium (Colace) 100 mg capsule Active 100 MG PO Twice daily 28 14 0 February 11, 2025 12:00am Complies with drug therapydoxycycline hyclate 100 mg oral tablet (4 sources)Tetracycline-class DrugStart: 47-25-9384agzg 1 tablet by mouth twice dailyDoxycycline Hyclate 100 mg tablet Active 100 MG PO Twice daily 14 7 0 February 11, 2025 12:00am Complies with drug oyizrbr77 hr isosorbide mononitrate 30 mg extended release oral tablet (15 sources)Nitrate VasodilatorStart: 62-66-8063mlzr 1 tablet by mouth in the morning, then take 1 tablet by mouth every twenty-four hoursIsosorbide Mononitrate 30 mg tablet extended release 24 hr Active 30 MG PO .am December 01, 2024 12:00am Complies with drug therapyivermectin 3 mg oral tablet (6 sources)Antiparasitic, PediculicideStart: 19-84-5074iqtoykxzqf (Stromectol) 3 MG tablet Indications: Rash and other nonspecific skin eruption Take 6 tablets today and repeat in 1 week 6 tablet 1 03/06/2025 Activelevothyroxine sodium 0.125 mg oral tablet (15 sources)l-ThyroxineStart: 90-34-3100zrer 2 tablets by mouth in the morning Levothyroxine 125 mcg tablet Active 250 MCG PO .am December 01, 2024 12:00am Complies with drug therapymelatonin 12 mg oral tablet (9 sources)Start: 18-01-4505ztog 1 tablet by mouth once daily at bedtime Melatonin 12 mg tablet Active 12 MG PO Daily at bedtime December 01, 2024 12:00am Complies with drug therapymetoprolol tartrate 50 mg oral tablet (15 sources)beta-Adrenergic BlockerStart: 18-18-8203tzuv 1 tablet by mouth twice dailyMetoprolol Tartrate 50 mg tablet Active 50 MG PO Twice daily December 01, 2024 12:00am Complies with drug therapyoxyCODONE hydrochloride 5 mg oral tablet (19 sources)Opioid AgonistStart: 70-11-0346xyfp 1 tablet by mouth every four hours as needed for painOxycodone 5 mg tablet Active 5 MG PO Q4H as needed for Pain 42 7 0 February 11, 2025 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 #42 DO NOT FILL UNTIL 02/23/25 Complies with drug therapyStart: 53-46-3179kitl 2 tablets by mouth every four hours as needed for painOxycodone 5 mg Tablet Active 10 MG PO Every 4 hours as needed for Pain Scale 6 - 10 42 7 December 12, 2024 Complies with drug therapyStart: 12-03-2024 End: 09-69-7928wwxz 1 tablet by mouth every six hours as needed for pain Oxycodone 5 mg Tablet Discontinued 5 MG PO Every 6 hours as needed for Pain Scale 4 - 7 0 0 December 03, 2024 December 12, 2024 1:21pmpredniSONE 5 mg oral tablet (8 sources)Start: 28-61-3565Eauzjhbjis 5 mg tablet Active 5 MG PO daily 30 10 0 March 04, 2025 12:00am Take 5 pills by mouthx2 days, take 4 pills by mouth x2 days, take 3 pills by mouth x2 days, take 2 pills by mouth x2 days, take 1 pill by mouth x2 days. Complies with drug therapytamsulosin hydrochloride 0.4 mg oral capsule (15 sources)alpha-Adrenergic BlockerStart: 50-52-4800afqv 1 capsule by mouth once dailyTamsulosin 0.4 mg capsule Active 0.4 MG PO Daily December 01, 2024 12:00am Complies with drug therapytiZANidine 4 mg oral tablet (15 sources)Central alpha-2 Adrenergic AgonistStart: 98-42-3858hbed 2 tablets by mouth once daily at bedtimetiZANidine (Zanaflex) 4 MG tablet TAKE 2 TABLETS BY MOUTH EVERY DAY AT BEDTIME 02/13/2025 ActiveStart: 77-11-7631gsjg 1 tablet by mouth at bedtimeTizanidine 4 mg tablet Active 4 MG PO Bedtime December 01, 2024 12:00am Complies with drug therapytopiramate 100 mg oral tablet (20 sources)Start: 03-84-9185mogb 2 tablets by mouth at bedtimeTopiramate 100 mg tablet Active 200 MG PO Bedtime December 01, 2024 12:00am Complies with drug therapyStart: 44-41-1541kubq 1 tablet by mouth in the morningTopiramate (Topamax) 100 mg tablet Active 100 MG PO .am December 01, 2024 12:00am Complies with drug therapytraMADol hydrochloride 50 mg oral tablet (8 sources)Opioid AgonistStart: 02-11-2025 End: 01-09-7910omkw 1 tablet by mouth every four hours as needed for pain Tramadol 50 mg tablet Active 50 MG PO Q4H as needed for Pain 42 7 0 February 11, 2025 12:51pm 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 #42 okay to fill pre op 02/11/2025 Complies with drug therapytriamcinolone acetonide 0.001 mg/mg topical ointment (10 sources)CorticosteroidStart: 00-07-6346ucjdbmifuwctg (Kenalog) 0.1 % ointment Indications: Stasis dermatitis of both legs Apply (1g) to affected areas (legs/arms), up to twice a day when flared, do not use one the face, groin, or underarms, 30 day supply 453.6 g 5 04/24/2025 ActiveStart: 03-06-2025 End: 97-46-8613uvqbogswkigoc (Kenalog) 0.1 % cream Indications: Rash and other nonspecific skin eruption Apply (1g) to affected areas (legs/arms), up to twice a day when flared, do not use one the face, groin, or underarms, 30 day supply 454 g 3 03/06/2025 04/24/2025 DiscontinuedStart: 23-49-2703Oonoknjknzcff Acetonide 0.5 % cream Active 1 APPLIC TOPICAL Twice daily 15 30 February 25, 2025 12:00am RLE dermatitis Complies with drug therapy Completed/Discontinued Medications MedicationDrug Class(es)DatesSig (Normalized)Sig (Original)120 actuat budesonide 0.16 mg/actuat / formoterol fumarate 0.0045 mg/actuat metered dose inhaler (9 sources)Corticosteroid, beta2-Adrenergic AgonistStart: 12-12-2024 End: 84-57-4767mpor 1 puff(s) by inhalation twice dailyBudesonide-Formoterol (Symbicort) 160-4.5 mcg/actuation Hfa Aerosol Inhaler Discontinued 2 PUFF INHA LATION Twice daily 10.2 0 December 12, 2024 12:00am February 06, 2025 12:16pm diclofenac sodium 75 mg delayed release oral tablet (20 sources)Nonsteroidal Anti-inflammatory DrugStart: 12-01-2024 End: 77-61-6904dghs 1 tablet by mouth once dailyDiclofenac Sodium 75 mg tablet,delayed release (DR/EC) Discontinued 75 MG PO Daily 30 0 December 03, 2024 11:46am December 12, 2024 1:20pmtake 1 tablet by mouth twice daily as needed diclofenac (Voltaren) 75 MG EC tablet Take 75 mg by mouth 2 (two) times a day as needed Activedocusate sodium 50 mg / sennosides, skilled nursing 8.6 mg oral tablet (9 sources)Start: 12-03-2024 End: 53-88-9941jkux 2 tablets by mouth twice dailySennosides-Docusate Sodium 8.6-50 mg Tablet Discontinued 2 TAB PO Twice daily 0 December 03, 2024 12:00am December 12, 2024 1:21pmpolyethylene glycol 3350 11125 mg powder for oral solution (9 sources)Osmotic LaxativeStart: 12-03-2024 End: 13-96-3033Flgjpqedzmfh Glycol 3350 (Healthylax) 17 gram Powder In Packet Discontinued 17 GM PO Daily 0 December 03, 2024 12:00am February 06, 2025 12:17pm rivaroxaban 10 mg oral tablet (9 sources)Factor Xa InhibitorStart: 12-03-2024 End: 02-31-0388ewuu 1 tablet by mouth once dailyRivaroxaban (Xarelto) 10 mg Tablet Discontinued 10 MG PO Daily 0 December 03, 2024 12:00am November 1:21pm Problems Active Problems Problem ClassificationProblemDateDocumented DateEpisodic/ChronicAcute and unspecified renal failure (1 source)Acute kidney failure, unspecified; Translations: [ACUTE KIDNEY FAILURE UNSPECIFIED]Onset: 39-63-1052TjfeihgeRpdwsqwopouele/social admission (18 sources)Other reduced mobility; Translations: [Impaired mobility and activities of daily living]Onset: 852075-93-8326MkdovnwrFlvyjmf-egdlban disorders (20 sources)Alcohol dependence, uncomplicated; Translations: [Alcohol dependence]Onset: 083098-41-7543StpbgwjIpgymcv obstructive pulmonary disease and bronchiectasis (19 sources)Emphysema, unspecified; Translations: [Chronic obstructive lung disease]Onset: 283786-58-9828NlohquuYtaovoxhyl heart failure; nonhypertensive (1 source)Unspecified diastolic (congestive) heart failure; Translations: [UNSPECIFIED DIASTOLIC HEART FAILURE]Onset: 58-11-3867SrzvolfQguxnrzg atherosclerosis and other heart disease (18 sources)Coronary arteriosclerosis; Translations: [Atherosclerotic heart disease of burns paiute coronary artery without angina pectoris]Onset: 12-03-2024 61-59-3142RhnioswGkatuoas of white blood cells (1 source)Elevated white blood cell count, unspecified; Translations: [ELEVATED WHITE BLOOD CELL COUNT UNS]Onset: 88-42-2146AzyzvquPhzeurdfa of lipid metabolism (20 sources)Hyperlipidemia; Translations: [Hyperlipidemia, unspecified]Onset: 485537-98-2824NjgqycyM Codes: Fall (1 source)Unspecified fall, initial encounter; Translations: [UNSPECIFIED FALL INITIAL ENCOUNTER]Onset: 38-66-6263WkdtzlkuWtxejndj; convulsions (20 sources)Epilepsy, unspecified, not intractable, without status epilepticus; Translations: [Seizure disorder]Onset: 240905-06-1820IsmkzhyJplrgkppc hypertension (20 sources)Essential (primary) hypertension; Translations: [Hypertensive disorder]Onset: 263822-94-3865CtyurdrCzxhl and electrolyte disorders (11 sources)Hypo-osmolality and hyponatremia; Translations: [Dehydration]Onset: 589989-14-8512SmsccwuoNlqfmapb of neck of femur (hip) (20 sources)Fracture of neck of femur; Translations: [Fracture of unspecified part of neck of unspecified femur, initial encounter for closed fracture]Onset: 133670-73-1836CvbuljnmDpctbblq; including migraine (1 source)Headache; including migraine; Translations: [HEADACHE UNSPECIFIED] Onset: 20-59-0082Mbhbfqktdea of prostate (20 sources)Benign prostatic hyperplasia; Translations: [Benign prostatic hyperplasia without lower urinary tract symptoms]Onset: ChronicHypertension with complications and secondary hypertension (1 source)Hypertensive heart disease with heart failure; Translations: [HTN HEART DISEASE W/HEART FAIL]Onset: 76-16-3143TfasmruGrtaunmyrgzz injury (1 source)Other specified intracranial injury with loss of consciousness of 30 minutes or less, initial encounter; Translations: [OTH SPECIFIED ICI LOC 30 MIN/< INIT]Onset: 66-72-8713CftiquyiNhzjcvd and fatigue (4 sources)Weakness; Translations: [WEAKNESS]Onset: 12-55-8277ZwlmiuxeDohvupwfiz disorders (1 source)Hormone replacement therapy; Translations: [HORMONE REPLACEMENT THERAPY]Onset: 76-46-9889NkmiragbRoxjttaymwkrld (1 source)Unilateral primary osteoarthritis, left hip; Translations: [UNI PRIM OSTEOARTHRITIS LT HIP]Onset: 10-25-2866PdnnfihKwfne aftercare (1 source)Other community sports coordinator (current) drug therapy; Translations: [OTH DETENTION CURRENT DRUG THERAPY]Onset: 24-96-5888HbwbfsykCgkxw aftercare (1 source)Removal of sutures done; Translations: [Encounter for removal of sutures]13-38-2364QnhggbbnGnjvf bone disease and musculoskeletal deformities (20 sources)Avascular necrosis of bone; Translations: [Idiopathic aseptic necrosis of unspecified bone]20-53-2294UnwidvtFjrxa bone disease and musculoskeletal deformities (7 sources)Idiopathic aseptic necrosis of unspecified bone; Translations: [Aseptic necrosis of bone, site unspecified]Onset: 894017-20-1010Bxjepsu Other bone disease and musculoskeletal deformities (20 sources)Avascular necrosis of bone of hip; Translations: [Idiopathic aseptic necrosis of right femur]46-75-0856CzvnujcCvknq bone disease and musculoskeletal deformities (2 sources)Idiopathic aseptic necrosis of right femur; Translations: [Aseptic necrosis of head and neck of femur]74-44-1816SergknmTusur bone disease and musculoskeletal deformities (2 sources)Idiopathic aseptic necrosis of left femur; Translations: [Aseptic necrosis of head and neck of femur]83-59-9327OhjkiflSniui connective tissue disease (20 sources)History of total hip arthroplasty; Translations: [Presence of unspecified artificial hip joint]90-68-4598YckdxroYfveb connective tissue disease (7 sources)Presence of unspecified artificial hip joint; Translations: [Hip joint replacement]Onset: 557847-39-8087YolhgqiOgugf connective tissue disease (2 sources)Presence of right artificial hip joint; Translations: [Hip joint replacement]93-77-1597IdinlzlKytlj connective tissue disease (1 source)Arthrodesis status; Translations: [ARTHRODESIS STATUS]Onset: 16-97-3762MitzctosZayab diseases of veins and lymphatics (6 sources)Stasis dermatitis; Translations: [Venous insufficiency (chronic) (peripheral)]42-97-2881DynwxgztBwrmg diseases of veins and lymphatics (1 source)Venous insufficiency (chronic) (peripheral); Translations: [Venous insufficiency (chronic) (peripheral)]Onset: 71-95-3963JwxevcmqTkymb diseases of veins and lymphatics (1 source)Disorder of vein of lower extremity; Translations: [Venous insufficiency (chronic) (peripheral)]34-75-0134HpqwzookWnaql nervous system disorders (1 source)Other chronic pain; Translations: [OTHER CHRONIC PAIN]Onset: 57-32-2312YsvktdnTcakf non-traumatic joint disorders (20 sources)Pain in right shoulder; Translations: [Right shoulder pain]Onset: 487038-99-4828DatooddcRnyri skin disorders (7 sources)Eruption; Translations: [Rash and other nonspecific skin eruption] 06-38-3154DeecersuRxdzhrkkd (except that caused by tuberculosis or sexually transmitted disease) (1 source)Pneumonia (except that caused by tuberculosis or sexually transmitted disease); Translations: [PNEUMONIA D/T CORONAVIRUS DIS 2019]Onset: 04-05-2022 Screening and history of mental health and substance abuse codes (1 source)Personal history of nicotine dependence; Translations: [PERSONAL HISTORY OF NICOTINE DEPEND]Onset: 39-15-5584UbwivdiqNank and subcutaneous tissue infections (6 sources)Cellulitis of right lower limb; Translations: [Cellulitis of right lower limb]Onset: 739446-33-7945MeixqvpuCobpavzowfv; intervertebral disc disorders; other back problems (4 sources)Other intervertebral disc displacement, lumbar region; Translations: [OTH IV DISC DISPLACEMENT LUMBAR RGN]Onset: 78-84-2647PapvulpOrblokkoxri; intervertebral disc disorders; other back problems (6 sources)Radiculopathy, lumbosacral region; Translations: [Radiculopathy, cervical region]Onset: 76-54-0850VyrqfioyLzlqpic and strains (1 source)Sprain of unspecified ligament of left ankle, initial encounter; Translations: [SPRAIN UNS LIGAMENTLT ANKLE INIT]Onset: 09-97-1531Bphzviqq Substance-related disorders (1 source)Nicotine dependence, cigarettes, uncomplicated; Translations: [NICOTINE DEPEND CIGARETTES UNCOMP]Onset: 77-71-2917AhtqhziJejzree disorders (20 sources)Hypothyroidism, unspecified; Translations: [Hypothyroidism]Onset: [id number] (3 sources)CONTACT W/AND (SUSP) EXPOS COVID-19; Translations: [CONTACT W/AND (SUSP) EXPOS COVID-19]Onset: 31-50-7043Bjijbvqusjbx (3 sources)LOW BACK PAIN, UNSPECIFIED; Translations: [LOW BACK PAIN, UNSPECIFIED]Onset: 82-65-4156Xbvzeevdsmyg (1 source)PERSONAL HISTORY OF COVID-19; Translations: [PERSONAL HISTORY OF COVID-19]Onset: 76-40-9329Bkhvrcckcnxk (2 sources)COUGH, UNSPECIFIED; Translations: [COUGH, UNSPECIFIED]Onset: 91-51-7888Xgyocefzxfja (16 sources)Please arrange a follow-up appointment once discharged from rehab. Unclassified (10 sources)Call to schedule follow up appointment with PCP after discharge Unclassified (10 sources)Call to schedule follow up appointment with surgeon after discharge Unclassified (10 sources)Follow up with rehab physician as neededViral infection (3 sources)COVID-19; Translations: [Disease caused by 2019-nCoV]Onset: 03-27-2022 Past or Other Problems Problem ClassificationProblemDateDocumented DateEpisodic/ChronicAbdominal pain (1 source)Epigastric pain; Translations: [EPIGASTRIC PAIN]Onset: 01-26-2022 EpisodicBacterial infection; unspecified site (3 sources)Methicillin resistant Staphylococcus aureus infection as the cause of diseases classified elsewhere; Translations: [Methicillin susceptible Staphylococcus aureus infection as the cause of diseases classified elsewhere] Onset: 85-78-8195YdjzfpbxQvvceoo dysrhythmias (3 sources)Bradycardia, unspecified; Translations: [Palpitations]Onset: 89-40-7557AkiylmbjTliemfw obstructive pulmonary disease and bronchiectasis (2 sources)Bronchitis, not specified as acute or chronic; Translations: [BRONCHITIS NOT SPEC ACUTE/CHRON]Onset: 22-72-2866MpowtnstLxjyemcent and other anemia (1 source)Anemia, unspecified; Translations: [ANEMIA UNSPECIFIED]Onset: 92-97-8336GbxpzqfyAinxobn (1 source)Other specified mycoses; Translations: [OTHER SPECIFIED MYCOSES]Onset: 58-68-0157GuvwvdmsJmmkfwhfkrm chest pain (7 sources)Chest pain, unspecified; Translations: [Other chest pain]Onset: 78-87-9262NgnjedsuGqxkm connective tissue disease (1 source)Myalgia, unspecified site; Translations: [MYALGIA UNSPECIFIED SITE] Onset: 44-58-9807MsixyaoqRikpn gastrointestinal disorders (1 source)Dysphagia, unspecified; Translations: [DYSPHAGIA UNSPECIFIED]Onset: 56-54-0306MdhnyghqOjqtz lower respiratory disease (1 source)Shortness of breath; Translations: [SHORTNESS OF BREATH]Onset: 61-48-3529AbmzhajfAdmws lower respiratory disease (2 sources)Other forms of dyspnea; Translations: [Other forms of dyspnea]Onset: 28-24-2293QpnubbhuDhsbo screening for suspected conditions (not mental disorders or infectious disease) (1 source)Other specified abnormal findings of blood chemistry; Translations: [OTH SPEC ABNORMAL FINDINGS BLDCHEM]Onset: 83-73-5487GywmjchcDoknrqkqh (except that caused by tuberculosis or sexually transmitted disease) (4 sources)Pneumonia, unspecified organism; Translations: [PNEUMONIA UNSPECIFIED ORGANISM]Onset: 62-25-6153BhuysbviMybjgzgl codes; unclassified (1 source)Other specified health status; Translations: [Other specified health status]Onset: 53-37-0551PtjjfjunKkytwqksdkfr (1 source)LOW BACK PAIN, UNSPECIFIED; Translations: [LOW BACK PAIN, UNSPECIFIED] Onset: 28-34-1949Skxymbhfphso (1 source)COUGH, UNSPECIFIED; Translations: [COUGH, UNSPECIFIED]Onset: 11-62-7303Zhdnnuhollhh (1 source)CONTACT W/AND (SUSP) EXPOS COVID-19; Translations: [CONTACT W/AND (SUSP) EXPOS COVID-19]Onset: 03-17-2022 Results Test NameValueInterpretationReference RangeFacilityOrders Onlyon 05-10-2025 Orders [id number] Rehan Trejo 1965 M Date Provider Department Center 05/10/2025 PETAR ZAMUDIO [facility] CARD CT Heart[facility]AS No family history on [facility]niPro[facility] HospitalLesion biopsy on 43-39-6072Lsmx of biopsy: punch Informed consent: discussed and [...] used: 2 Specimen sent for: H&E Photo [facility] Onlyon 53-92-7867Vtugkn Only [id number] Rehan Trejo 1965 M Date Provider Department [place] 03/09/2025 PETAR ZAMUDIO [facility] HeartVAS No family history on [facility]Basic Met[facility] Panelon 63-71-0417Rgqwsdiiqa Clr Calc Njklmlkd786.[address] [place] [address] Physician GroupComment on above:Result Comment: PERFORMED BY: [place] [address] PATHOLOGIST [employer] SOFIE MONTEIRO M.D.Performed By: #### CBC, CMP wRFX A1C #### [place] [address] USAGFR/1.73 sq M.predicted MDRD (S/P/Bld) [Vol rate/Area] mL/min/{1.73_m2}NormalThe [facility] Physician GroupComment on above:Performed By: #### CBC, CMP wRFX A1C #### [facility] [address] [place] [address] USABasophils [#/volume] in Blood by Automated countOrdered By: Nishant Ceja on 31-60-3841Degmeytid (Bld) [#/Vol]0.0 10*3/uL0.0-0.2 [facility]'S HospitalComment on above:Result Comment: PERFORMED BY: [place] [address] PATHOLOGIST [employer] SOFIE MONTEIRO M.D.Performed By: #### CBC, CMP wRFX A1C #### [place] [id number] USABasophils/100 leukocytes in Blood by Automated count Ordered By: Nishant Ceja on 52-49-2996Dcsanmklo/100 WBC (Bld)0.5 %.[facility] Rita'S HospitalComment on above:Performed By: #### CBC, CMP wRFX A1C #### [facility] [address] [place], [place] [id number] USACalcium [Mass/volume] in Serum or PlasmaOrdered By: Nishant Ceja on 20-75-2076Sovbocw [Mass/Vol]8.2 mg/dLLow8.6-10.3FUniversity Hospitals Geauga Medical CenterComment on above:Performed By: #### CBC, CMP wRFX A1C #### [facility] [address] [place] [address] USACarbon dioxide, total [Moles/volume] in Serum or Plasma Ordered By: Nishant Ceja on 22-19-4954UR0 [Moles/Vol]19.9 mmol/LLow21.0-31.0 [facility] Rita'S HospitalComment on above:Performed By: #### CBC, CMP wRFX A1C #### [facility] [address] [place] [address] USAChloride [Moles/volume] in Serum or PlasmaOrdered By: Nishant Ceja on 80-77-2329Odxcmfzv [Moles/Vol]102 mmol/J76-536QybaeciagSt. Rita'S HospitalComment on above:Performed By: #### CBC, CMP wRFX A1C #### [facility] [address] [place] [address] USAComplete Blood Count Auto Diffon 87-34-7557Olau Corpuscular HGB Conc33.4 g/vOIraqlf96.5-35.6The [facility] Physician GroupComment on above:Performed By: #### CBC, CMP wRFX A1C #### [facility] [address] [place] [address] USANRBC%0.1 /100{WBC}Normal0-0.5[facility] Physician Group Comment on above:Performed By: #### CBC, CMP wRFX A1C #### [facility] [address] [place] [address] USAWhite Blood Count6.9 [CFU]/mLNormal4.1-10.5[facility] Physician [facility] Surgical HospitalComment on above:Performed By: #### CBC, CMP wRFX A1C #### [facility] [address] [place] [address] USACreatinine [Mass/volume] in Serum or PlasmaOrdered By: Nishant Ceja on 55-00-9763Sicquyzsjq [Mass/Vol]0.76 mg/dL0.70-1.30St. Rita'S HospitalComment on above:Performed By: #### CBC, CMP wRFX A1C #### [facility] [address] [place] [address] USAEosinophils [#/volume] in Blood by Automated countOrdered By: Nishant Ceja on 28-10-4926Gvzlqngrtqm (Bld) [#/Vol]0.6 10*3/uLHigh0.0-0.45 [facility]'S HospitalComment on above:Performed By: #### CBC, CMP wRFX A1C #### [facility] [address] [place] [address] USAEosinophils/100 leukocytes in Blood by Automated count Ordered By: Nishant Ceja on 17-70-9360Jnhspycarre/100 WBC (Bld)8.6 %.St[facility] Rita'S HospitalComment on above:Performed By: #### CBC, CMP wRFX A1C #### [facility] [address] [place] [id number] USAErythrocyte distribution width [Ratio] by Automated count Ordered By: Nishant Ceja on 33-99-5487Husvlcfllqf distribution width (RBC) [Ratio]13.5 %12.0-14.8St. Rita'S HospitalComment on above: Performed By: #### CBC, CMP wRFX A1C #### [facility] [address] [place] [id number] USAErythrocytes [#/volume] in Blood by Automated countOrdered By: Nishant Ceja on 71-40-1782VDA (Bld) [#/Vol]4.31 10*6/uL3.90-5.60St. [facility]'S HospitalComment on above:Performed By: #### CBC, CMP wRFX A1C #### [facility] [address] [place] [id number] USAGlucose [Mass/volume] in Serum or PlasmaOrdered By: Nishant Ceja on 56-95-6527Vsuujrs [Mass/Vol]77 mg/bM04-798UeaujdxxiSt. Rita'S HospitalComment on above:ADA recommended reference rangeRandom Glucose Reference Range is dependent on time and content of last meal. Glucose of more than 200 mg/dL in a nonstressed, ambulatory subject supports the diagnosisof Diabetes Mellitus.Result Comment: Random Glucose Reference Range is dependent on time and content of last meal. Glucose of more than 200 mg/dL in a nonstressed, ambulatory subject supports the diagnosis of Diabetes Mellitus. ADA recommended reference rangePerformed By: #### CBC, CMP wRFX A1C #### [facility] [address] [place] [id number] USAHematocrit [Volume Fraction] of Blood by Automated count Ordered By: Nishant Ceja on 89-01-9822Hbmpngdtub (Bld) [Volume fraction]42.9 % 38.8-50.0St. Rita'S HospitalComment on above:Performed By: #### CBC, CMP wRFX A1C #### [facility] [address] [place] [id number] USAHemoglobin [Mass/volume] in BloodOrdered By: Nishant Ceja on 61-45-0034Jiqmlwgeym (Bld) [Mass/Vol]14.3 g/dL13.0-17.0St. Rita'S HospitalComment on above:Performed By: #### CBC, CMP wRFX A1C #### [facility] [address] [place] [id number] USALeukocytes [#/volume] corrected for nucleated erythrocytes in Blood by Automated counOrdered By: Nishant Ceja on 23-51-3501AMM corrected for nucl RBC Auto (Bld) [#/Vol]6.9 10*3/uL4.1-10.5FUniversity Hospitals Geauga Medical CenterLeukocytes [#/volume] in Blood by Automated countOrdered By: Nishant Ceja on 77-88-1662SNH (Bld) [#/Vol]6.9 10*3/uL4.1-10.5FUniversity Hospitals Geauga Medical CenterComment on above:Performed By: #### CBC, CMP wRFX A1C #### [facility] [address] [place], [place] [address] USALymphocytes [#/volume] in Blood by Automated countOrdered By: Nishant Ceja on 98-32-1013Mjginhdepzf (Bld) [#/Vol]2.1 10*3/uL1.00-4.8 [facility]S HospitalComment on above:Performed By: #### CBC, CMP wRFX A1C #### [facility] [address] [place] [id number] USALymphocytes/100 leukocytes in Blood by Automated count Ordered By: Nishant Ceja on 99-20-9379Mwzhigosyby/100 WBC (Bld)31.0 %.[facility]'S HospitalComment on above:Performed By: #### CBC, CMP wRFX A1C #### [facility] [address] [place], [place] [address] USAMCH [Entitic mass] by Automated countOrdered By: Nishant Ceja on 46-68-3992WGG (RBC) [Entitic mass]33.2 pg27.5-35.2FUniversity Hospitals Geauga Medical CenterComment on above:Performed By: #### CBC, CMP wRFX A1C #### [facility] [address] [place] [address] USAHC Auto (RBC) [Mass/Vol]Ordered By: Nishant Ceja on 36-48-4752UPLN (RBC) [Mass/Vol]33.4 g/dL32.5-35.6FUniversity Hospitals Geauga Medical CenterMCV [Entitic volume] by Automated countOrdered By: Nishant Ceja on 31-34-2600NXL (RBC) [Entitic vol]99.5 fL83.5-101St. Rita'S HospitalComment on above:Performed By: #### CBC, CMP wRFX A1C #### [facility] [address] [place] [id number] USAMonocytes [#/volume] in Blood by Automated countOrdered By: Nishant Ceja on 76-64-9908Amiyvlpja (Bld) [#/Vol]0.7 10*3/uL0.0-0.8 [facility]S HospitalComment on above:Performed By: #### CBC, CMP wRFX A1C #### [facility] [address] [place], [place] [id number] USAMonocytes/100 leukocytes in Blood by Automated count Ordered By: Nishant Ceja on 09-02-4303Ksglpvcjn/100 WBC (Bld)10.5 %.[facility]'S HospitalComment on above:Performed By: #### CBC, CMP wRFX A1C #### [facility] [address] [place], [place] [id number] USANeutrophils [#/volume] in Blood by Automated countOrdered By: Nishant Ceja on 43-80-4317Sodtrgzdybu (Bld) [#/Vol]3.4 10*3/uL1.8-7.7 [facility]S HospitalComment on above:Performed By: #### CBC, CMP wRFX A1C #### [facility] [address] [place] [address] USANeutrophils/100 leukocytes in Blood by Automated count Ordered By: Nishant Ceja on 88-04-6317Zhdigifgdhc/100 WBC (Bld)49.4 %.[facility]'S HospitalComment on above:Performed By: #### CBC, CMP wRFX A1C #### [facility] [address] [place] [address] USANo Panel InformationOrdered By: Nishant Ceja on 38-20-4632Xedbjahnm GFR (CKD-EPI)> 60.0 mL/MinSt. Rita'S Hospital Pharmacy Creatinine Clearance (Vzfi542.16[facility] Nucleated erythrocytes [Presence] in Blood by Automated countOrdered By: Nishant Ceja on 41-17-2490Cbvcghsfe RBC Auto Ql (Bld)0.1 /100{WBC}0-0.5FUniversity Hospitals Geauga Medical CenterPlatelet mean volume [Entitic volume] in Blood by Automated countOrdered By: Nishant Ceja on 89-62-0278Dbtwbglw mean volume (Bld) [Entitic vol]8.5 fL6.6-10.1FUniversity Hospitals Geauga Medical CenterComment on above: Performed By: #### CBC, CMP wRFX A1C #### [facility] [address] [place] [address] USAPlatelets [#/volume] in Blood by Automated countOrdered By: Nishant Ceja on 84-75-6046Pxpsbtkeb (Bld) [#/Vol]164 10*3/cT799-362 St[facility]S HospitalComment on above:Performed By: #### CBC, CMP wRFX A1C #### [facility] [address] [place] [address] USAPotassium [Moles/volume] in Serum or PlasmaOrdered By: Nishant Ceja on 48-55-1471Qgupdmgyq [Moles/Vol]4.0 mmol/L3.5-5.1FUniversity Hospitals Geauga Medical CenterComment on above:Performed By: #### CBC, CMP wRFX A1C #### [facility] [address] [place] [address] USASerum or plasma anion gap determinationOrdered By: Nishant Ceja on 27-35-7008Lyauo gap [Moles/Vol]12.1 mmol/L6.0-15.0Fire[facility] Regional Medical CenterComment on above:Performed By: #### CBC, CMP wRFX A1C #### [facility] [address] [place] [id number] USASodium [Moles/volume] in Serum or PlasmaOrdered By: Nishant Ceja on 85-19-6936Taojvy [Moles/Vol]130 mmol/PWfl233-408IefthbgsdSt. Rita'S HospitalComment on above:Performed By: #### CBC, CMP wRFX A1C #### [facility] [address] [place] [address] USAUrea nitrogen [Mass/volume] in Serum or PlasmaOrdered By: Nishant Ceja on 60-13-7513Lsso nitrogen [Mass/Vol]11 mg/dL7-25St. Rita'S HospitalComment on above:Performed By: #### CBC, CMP wRFX A1C #### [facility] [address] [place] [address] USABasic Metabolic Panelon 38-32-6792Iryry gap [Moles/Vol]8.9 mmol/LNormal6.0-15.0[facility] Physician GroupComment on above:Performed By: #### CBC, BMP #### [place] [address] USACalcium [Mass/Vol]8.7 mg/dLNormal8.6-10.3The [facility] Physician GroupComment on above:Performed By: #### CBC, BMP #### [facility] [address] [place] [address] USAChloride [Moles/Vol]98 mmol/WJqbzou60-157Vxe [facility] Physician GroupComment on above:Performed By: #### CBC, BMP #### [facility] [address] [place] [address] USACO2 [Moles/Vol]24.2 mmol/PCweqpp69.0-31.0[facility] Physician GroupComment on above:Performed By: #### CBC, BMP #### [facility] [address] [place] [address] USACreatinine [Mass/Vol]0.63 mg/dLLow0.70-1.30The [facility] Physician GroupComment on above:Performed By: #### CBC, BMP #### [place] [address] USACreatinine Clr Calc Exkyibjs256.04NormalThe [facility] Physician GroupComment on above:Result Comment: PERFORMED BY: [place] [address] PATHOLOGIST [employer] SOFIE MONTEIRO M.D.Performed By: #### CBC, BMP #### [place] [address] USAGFR/1.73 sq M.predicted MDRD (S/P/Bld) [Vol rate/Area] mL/min/{1.73_m2}NormalThe [facility] Physician GroupComment on above:Performed By: #### CBC, BMP #### [place] [address] USAGlucose [Mass/Vol]88 mg/vTSmugtp93-305Pgu [facility] Physician GroupComment on above:Result Comment: Random Glucose Reference Range is dependent on time and content of last meal. Glucose of more than 200 mg/dL in a nonstressed, ambulatory subject supports the diagnosis of Diabetes Mellitus. ADA recommended reference rangePerformed By: #### CBC, BMP #### [place] [address] USAPotassium [Moles/Vol]4.1 mmol/LNormal3.5-5.1The [facility] Physician GroupComment on above:Performed By: #### CBC, BMP #### [place] [address] USASodium [Moles/Vol]127 mmol/CYqn150-214Uhn [facility] Physician GroupComment on above:Performed By: #### CBC, BMP #### [place] [address] USAUrea nitrogen [Mass/Vol]7 mg/dLNormal7-25The [facility] Physician GroupComment on above:Performed By: #### CBC, BMP #### [place] [address] USAComplete Blood Count Auto Diffon 60-09-4210Cuhiolabf (Bld) [#/Vol]0.1 10*3/uLNormal0.0-0.2The [facility] Physician GroupComment on above: Result Comment: PERFORMED BY: [place] [address] PATHOLOGIST [employer] SOFIE MONTEIRO M.D.Performed By: #### CBC, BMP #### [place] [address] USABasophils/100 WBC (Bld)1.2 %Normal.The [facility] Physician GroupComment on above:Performed By: #### CBC, BMP #### [place] [address] USAEosinophils (Bld) [#/Vol]0.6 10*3/uLHigh0.0-0.45The [facility] Physician GroupComment on above:Performed By: #### CBC, BMP #### [place] [address] USAEosinophils/100 WBC (Bld)6.7 %Normal.The [facility] Physician GroupComment on above:Performed By: #### CBC, BMP #### [place] [address] USAErythrocyte distribution width (RBC) [Ratio]13.1 %Normal 12.0-14.8The [facility] Physician GroupComment on above:Performed By: #### CBC, BMP #### [place] [address] USAHematocrit (Bld) [Volume fraction]42.1 %Sulvoh47.8-50.0The [facility] Physician GroupComment on above:Performed By: #### CBC, BMP #### [place] [address] USAHemoglobin (Bld) [Mass/Vol]14.0 g/kMBwgxok84.0-17.0The [facility] Physician GroupComment on above:Performed By: #### CBC, BMP #### [address] [place] [address] USALymphocytes (Bld) [#/Vol]2.6 10*3/uLNormal1.00-4.8The [facility] Physician GroupComment on above:Performed By: #### CBC, BMP #### [address] [address] USALymphocytes/100 WBC (Bld)29.7 %Normal.The [facility] Physician GroupComment on above:Performed By: #### CBC, BMP #### [place] [address] USAMCH (RBC) [Entitic mass]33.4 uaBxdvge58.5-35.2The [facility] Physician GroupComment on above:Performed By: #### CBC, BMP #### [place] [address] USAMCV (RBC) [Entitic vol]100.2 aHHiltho07.5-101The [facility] Physician GroupComment on above:Performed By: #### CBC, BMP #### [place] [address] USAMean Corpuscular HGB Conc33.3 g/uYGghloy13.5-35.6The [facility] Physician GroupComment on above:Performed By: #### CBC, BMP #### [place] [address] USAMonocytes (Bld) [#/Vol]0.8 10*3/uLNormal0.0-0.8The [facility] Physician GroupComment on above:Performed By: #### CBC, BMP #### [place] [id number] USAMonocytes/100 WBC (Bld)8.8 %Normal.The [facility] Physician GroupComment on above:Performed By: #### CBC, BMP #### [place] [address] USANeutrophils (Bld) [#/Vol]4.7 10*3/uLNormal1.8-7.7The [facility] Physician GroupComment on above:Performed By: #### CBC, BMP #### [facility] [address] [place] [address] USANeutrophils/100 WBC (Bld)53.6 %Normal.The [facility] Physician GroupComment on above:Performed By: #### CBC, BMP #### [facility] [address] [place] [address] USANRBC%0.2 /100{WBC}Normal0-0.5The [facility] Physician Group Comment on above:Performed By: #### CBC, BMP #### [facility] [address] [place] [address] USAPlatelet mean volume (Bld) [Entitic vol]8.6 fLNormal 6.6-10.1The [facility] Physician GroupComment on above:Performed By: #### CBC, BMP #### [place] [address] USAPlatelets (Bld) [#/Vol]186 10*3/jPEnomkk893-463Wre [facility] Physician GroupComment on above:Performed By: #### CBC, BMP #### [facility] [address] [place] [address] USARBC (Bld) [#/Vol]4.20 10*6/uLNormal3.90-5.60The [facility] Physician GroupComment on above:Performed By: #### CBC, BMP #### [place] [address] USAWBC (Bld) [#/Vol]8.8 10*3/uLNormal4.1-10.5The [facility] Physician GroupComment on above:Performed By: #### CBC, BMP #### [facility] [address] [place] [address] USAWhite Blood Count8.8 [CFU]/mLNormal4.1-10.5The [facility] Physician GroupComment on above:Performed By: #### CBC, BMP #### [facility] [address] [place] [address] USAAlanine aminotransferase [Enzymatic activity/volume] in Serum or PlasmaOrdered By: Nishant Ceja on 58-73-4042POP [Catalytic activity/Vol]45 U/LNormal7-52St. Rita'S HospitalComment on above: Performed By: #### CBC, CMP wRFX A1C #### [facility] [address] [place], [place] [address] USAAlbumin [Mass/volume] in Serum or Plasma by Bromocresol green (BCG) dye binding methoOrdered By: Nishant Ceja on 69-54-7776Kpschgd BCG dye [Mass/Vol]4.2 g/dL3.5-5.7FUniversity Hospitals Geauga Medical CenterAlkaline phosphatase [Enzymatic activity/volume] in Serum or PlasmaOrdered By: Nishant Ceja on 29-60-0088DZA [Catalytic activity/Vol]117 U/URroq39-339EjporhmomSt. Rita'S HospitalComment on above:Result Comment: PERFORMED BY: [place] [address] PATHOLOGIST [employer] SOFIE MONTEIRO M.D.Performed By: #### CBC, CMP wRFX A1C #### [facility] [address] [place] [address] USAAppearance of UrineOrdered By: Nishant Ceja on 02-06-2025 Appearance (U)ClearNormalClearSt. Rita'S HospitalComment on above: Order Comment: Name Collection Type:: Clean-Voided MidstreamPerformed By: #### CBC, CMP wRFX A1C #### [facility] [address] [place] [address] USAAspartate aminotransferase [Enzymatic activity/volume] in Serum or PlasmaOrdered By: Nishant eCja on 86-34-3801RJK [Catalytic activity/Vol]39 U/ORocbkt57-67JlxbuxngnSt. Rita'S HospitalComment on above: Performed By: #### CBC, CMP wRFX A1C #### [facility] [address] [place], [place] [address] USABasophils [#/volume] in Blood by Automated countOrdered By: Nishant Ceja on 15-41-8629Cqiibzzdj (Bld) [#/Vol]0.1 10*3/uLNormal0.0-0.2 [facility]S HospitalComment on above:Result Comment: PERFORMED BY: [place] [address] PATHOLOGIST [employer] SOFIE MONTEIRO M.D.Performed By: #### CBC, CMP wRFX A1C #### [facility] [address] [place] [address] USABasophils/100 leukocytes in Blood by Automated count Ordered By: Nishant Ceja on 47-14-5528Kobdmcreo/100 WBC (Bld)0.9 %Normal. St. Rita'S HospitalComment on above:Performed By: #### CBC, CMP wRFX A1C #### [place] [address] USABilirubin Test strip Ql (U)Ordered By: Nishant Ceja on 76-65-3783Ivhzcwvuh Ql (U)NegativeNegativeSt. Rita'S Hospital Bilirubin.total [Mass/volume] in Serum or PlasmaOrdered By: Nishant Ceja on 16-15-6699Qnqbrfbud [Mass/Vol]0.6 mg/dLNormal0.3-1.0St. [facility]'S HospitalComment on above:Performed By: #### CBC, CMP wRFX A1C #### [place] [address] USACMP with reflex to A1Con 47-68-1691Oqdlmge [Mass/Vol]4.2 g/dLNormal3.5-5.7The [facility] Physician GroupComment on above:Performed By: #### CBC, CMP wRFX A1C #### [facility] [address] [place], [place] [id number] USAGFR/1.73 sq M.predicted MDRD (S/P/Bld) [Vol rate/Area] mL/min/{1.73_m2}NormalThe [facility] Physician GroupComment on above:Performed By: #### CBC, CMP wRFX A1C #### [place] [address] USACalcium [Mass/volume] in Serum or PlasmaOrdered By: Nishant Ceja on 72-52-3865Kpsazkf [Mass/Vol]9.1 mg/dLNormal8.6-10.3FUniversity Hospitals Geauga Medical CenterComment on above:Performed By: #### CBC, CMP wRFX A1C #### [facility] [address] [place] [address] USACarbon dioxide, total [Moles/volume] in Serum or Plasma Ordered By: Nishant Ceja on 56-11-4379BF5 [Moles/Vol]23.4 mmol/FGxltnp26.0-31.0 [facility] Rita'S HospitalComment on above:Performed By: #### CBC, CMP wRFX A1C #### [facility] [address] [place] [address] USAChloride [Moles/volume] in Serum or PlasmaOrdered By: Nishant Ceja on 72-83-7381Dabbpwea [Moles/Vol]98 mmol/CSpdwtd23-758HewmfrwdmSt. Rita'S HospitalComment on above:Performed By: #### CBC, CMP wRFX A1C #### [facility] [address] [place] [address] USAColor of Urine by AutoOrdered By: Nishant Ceja on 13-27-7503Hefwb (U)Light-yellowNormalYellowSt. Rita'S Hospital Comment on above:Order Comment: Name Collection Type:: Clean-Voided Midstream Performed By: #### CBC, CMP wRFX A1C #### [facility] [address] [place] [address] USAComplete Blood Count Auto Diffon 04-30-3843Qcna Corpuscular HGB Conc33.9 g/iRBdhoac08.5-35.6[facility] Physician GroupComment on above:Performed By: #### CBC, CMP wRFX A1C #### [facility] [address] [place] [address] USANRBC%0.1 /100{WBC}Normal0-0.5[facility] Comment on above:Performed By: #### CBC, CMP wRFX A1C #### [facility] [address] [place] [address] USAWhite Blood Count5.4 [CFU]/mLNormal4.1-10.5[facility] Physician GroupComment on above:Performed By: #### CBC, CMP wRFX A1C #### [facility] [address] [place] [address] USACreatinine [Mass/volume] in Serum or PlasmaOrdered By: Nishant Ceja on 16-03-8344Xmxhhcmzwp [Mass/Vol]0.78 mg/dLNormal0.70-1.30 [facility]'S HospitalComment on above:Performed By: #### CBC, CMP wRFX A1C #### [facility] [address] [place] [address] USAECG 12 lead ECGon 17-62-2158OLG 12 lead ECGPARKVIEW HEALTH [facility]AN [facility] [place] [address] [place] [address] Electrocardiograph Report Signed Patient: Reahn Trejo MR#: [id number] : 1965 Acct:[id number] Age/Sex: 60 / M ADM Date: 02/06/25 Loc: Room: Type: [facility] Attending Dr: Nishant Ceja DO Ordering Provider: [...] Nonspecific ST abnormality Abnormal ECG Confirmed by ANEUDY CARD, DEEP ([id number]) on 02/06/2025 2:27:52 PM Referred By: Electronically Signed By: DEEP AMADO MD Transcribed By: MUS Signed By Deep Amado MD 0 02/06/25 1427NormalThe [facility] Physician GroupEosinophils [#/volume] in Blood by Automated countOrdered By: Nishant Ceja on 83-28-7484Wfwruamfkha (Bld) [#/Vol]0.1 10*3/uLNormal0.0-0.45St. [facility]'S HospitalComment on above:Performed By: #### CBC, CMP wRFX A1C #### [facility] [address] [place] [id number] USAEosinophils/100 leukocytes in Blood by Automated count Ordered By: Nishant Ceja on 56-83-1861Otsbgydswaq/100 WBC (Bld)2.4 %Normal. St. Rita'S HospitalComment on above:Performed By: #### CBC, CMP wRFX A1C #### [facility] [address] [place] [address] USAErythrocyte distribution width [Ratio] by Automated count Ordered By: Nishant Ceja on 64-29-2973Fttswjcolhl distribution width (RBC) [Ratio]13.9 %Xlfdoj84.0-14.8St. Rita'S HospitalComment on above: Performed By: #### CBC, CMP wRFX A1C #### [facility] [address] [place] [id number] USAErythrocytes [#/volume] in Blood by Automated countOrdered By: Nishant Ceja on 47-97-8722LIG (Bld) [#/Vol]4.08 10*6/uLNormal3.90-5.60 [facility]'S HospitalComment on above:Performed By: #### CBC, CMP wRFX A1C #### [facility] [address] [place] [id number] USAGlucose [Mass/volume] in Serum or PlasmaOrdered By: Nishant Ceja on 77-62-8001Kjkekov [Mass/Vol]82 mg/nIOmrngn13-619UpfeqpwrgSt. Rita'S HospitalComment on above:Performed By: #### CBC, CMP wRFX A1C #### [place] [id number] USAGlucose [Mass/volume] in Urine by Test stripOrdered By: Nishant Ceja on 73-88-5281Hllnywp Test strip (U) [Mass/Vol]Normal mg/dLNormal St. Rita'S HospitalHematocrit [Volume Fraction] of Blood by Automated countOrdered By: Nishant Ceja on 56-48-4103Kzhyzsilzm (Bld) [Volume fraction]40.9 %Bwvnld46.8-50.0St. Rita'S HospitalComment on above: Performed By: #### CBC, CMP wRFX A1C #### [facility] [address] [place] [address] USAHemoglobin Test strip Ql (U)Ordered By: Nishant Ceja on 49-19-7065Gwisfmmdur Ql (U)NegativeNegBlanchard Valley Health System [facility] Hemoglobin [Mass/volume] in BloodOrdered By: Nishant Ceja on 02-06-2025 Hemoglobin (Bld) [Mass/Vol]13.8 g/jCDoeyfo86.0-17.0St. [facility]'S HospitalComment on above:Performed By: #### CBC, CMP wRFX A1C #### [facility] [address] [place] [id number] USAKetones [Presence] in Urine by Test stripOrdered By: Nishant Ceja on 02-27-2279Dzsinok Ql (U)2+NormalNegBlanchard Valley Health System Blanchard Valley HospitalComment on above:Order Comment: Name Collection Type:: Clean- Voided MidstreamPerformed By: #### CBC, CMP wRFX A1C #### [facility] [address] [place], [place] [id number] USALeukocyte esterase [Presence] in Urine by Test strip Ordered By: Nishant Ceja on 41-03-0244Lmjyrjuzd esterase Test strip Ql (U) NegativeNormalNegBlanchard Valley Health System Bl[facility] Valley HospitalComment on above:Order Comment: Name Collection Type:: Clean-Voided MidstreamPerformed By: #### CBC, CMP wRFX A1C #### [facility] [address] [place] [id number] USALeukocytes [#/volume] corrected for nucleated erythrocytes in Blood by Automated counOrdered By: Nishant Ceja on 49-11-8579IQG corrected for nucl RBC Auto (Bld) [#/Vol]5.4 10*3/uL4.1-10.5FUniversity Hospitals Geauga Medical CenterLeukocytes [#/volume] in Blood by Automated countOrdered By: Nishant Ceja on 87-17-6934EWJ (Bld) [#/Vol]5.4 10*3/uLNormal4.1-10.5FUniversity Hospitals Geauga Medical CenterComment on above:Performed By: #### CBC, CMP wRFX A1C #### [facility] [address] [place] [id number] USALymphocytes [#/volume] in Blood by Automated countOrdered By: Nishant Ceja on 79-98-8362Wmxccceikqb (Bld) [#/Vol]1.8 10*3/uLNormal 1.00-4.8St. [facility]'S HospitalComment on above:Performed By: #### CBC, CMP wRFX A1C #### [facility] [address] [place] [address] USALymphocytes/100 leukocytes in Blood by Automated count Ordered By: Nishant Ceja on 23-65-6640Bbggodskebc/100 WBC (Bld)33.6 %Normal. St. Rita'S HospitalComment on above:Performed By: #### CBC, CMP wRFX A1C #### [facility] [address] [place] [id number] [facility] [Entitic mass] by Automated countOrdered By: Nishant Ceja on 19-61-4677KKS (RBC) [Entitic mass]33.9 vaYsnewy80.5-35.2FUniversity Hospitals Geauga Medical CenterComment on above:Performed By: #### CBC, CMP wRFX A1C #### [facility] [address] [place] [id number] [facility] Auto (RBC) [Mass/Vol]Ordered By: Nisahnt Ceja on 89-04-8954EMPM (RBC) [Mass/Vol]33.9 g/dL32.5-35.6FUniversity Hospitals Geauga Medical CenterMCV [Entitic volume] by Automated countOrdered By: Nishant Ceja on 73-47-3400QUY (RBC) [Entitic vol]100.2 yZUnzait58.5-101St. Rita'S HospitalComment on above:Performed By: #### CBC, CMP wRFX A1C #### [facility] [address] [place] [address] USAMonocytes [#/volume] in Blood by Automated countOrdered By: Nishant Ceja on 49-00-5160Sqojhphjo (Bld) [#/Vol]0.5 10*3/uLNormal0.0-0.8 [facility]'S HospitalComment on above:Performed By: #### CBC, CMP wRFX A1C #### [facility] [address] [place] [address] USAMonocytes/100 leukocytes in Blood by Automated count Ordered By: Nishant Ceja on 02-66-0184Ndgyenufj/100 WBC (Bld)10.1 %Normal. St. Rita'S HospitalComment on above:Performed By: #### CBC, CMP wRFX A1C #### [facility] [address] [place], [place] [address] USANeutrophils [#/volume] in Blood by Automated countOrdered By: Nishant Ceja on 32-38-8379Jxqctdwbapw (Bld) [#/Vol]2.8 10*3/uLNormal1.8-7.7 [facility]'S HospitalComment on above:Performed By: #### CBC, CMP wRFX A1C #### [facility] [address] [place] [address] USANeutrophils/100 leukocytes in Blood by Automated count Ordered By: Nishant Ceja on 74-17-2739Mllftorlmae/100 WBC (Bld)53.0 %Normal. [facility] Rita'S HospitalComment on above:Performed By: #### CBC, CMP wRFX A1C #### [facility] [address] [place], [place] [address] USANitrite Test strip Ql (U)Ordered By: Nishant Ceja on 75-67-5812Qanrhug Ql (U)NegativeNegativeSt. Rita'S HospitalNo Panel InformationOrdered By: Nishant Ceja on 53-35-5171Whmlvucxc GFR (CKD-EPI)> 60.0 mL/MinSt. Rita'S HospitalPharmacy Creatinine Clearance (Chem N/AFUniversity Hospitals Geauga Medical CenterNucleated erythrocytes [Presence] in Blood by Automated countOrdered By: Nishant Ceja on 19-02-4674Siynqatqi RBC Auto Ql (Bld)0.1 /100{WBC}0-0.5FUniversity Hospitals Geauga Medical CenterPlatelet mean volume [Entitic volume] in Blood by Automated countOrdered By: Nishant Ceja on 60-32-0151Zitqrtig mean volume (Bld) [Entitic vol]7.9 fLNormal6.6-10.1FUniversity Hospitals Geauga Medical CenterComment on above:Performed By: #### CBC, CMP wRFX A1C #### [facility] [address] [place] [address] USAPlatelets [#/volume] in Blood by Automated countOrdered By: Nishant Ceja on 41-76-7070Wozncvygj (Bld) [#/Vol]225 10*3/kWFhxnvk266-383 [facility]'S HospitalComment on above:Performed By: #### CBC, CMP wRFX A1C #### [facility] [address] [place] [address] USAPotassium [Moles/volume] in Serum or PlasmaOrdered By: Nishant Ceja on 19-53-1411Izmubeocg [Moles/Vol]4.1 mmol/LNormal3.5-5.1FUniversity Hospitals Geauga Medical CenterComment on above:Performed By: #### CBC, CMP wRFX A1C #### [place] [address] USAProtein Test strip (U) [Mass/Vol]Ordered By: Nishant Ceja on 70-55-7306Nvzbcru (U) [Mass/Vol]NegativeNegativeSt. Rita'S HospitalProtein [Mass/volume] in Serum or PlasmaOrdered By: Nishant Ceja on 80-04-4391Ohjzmae [Mass/Vol]6.9 g/dLNormal6.4-8.9St. Rita'S HospitalComment on above:Performed By: #### CBC, CMP wRFX A1C #### [place] [address] USASerum globulin measurement by calculation (mass/volume) Ordered By: Nishant Ceja on 05-72-4046Wyelqdic (S) [Mass/Vol]2.7 g/dLNormal St. Rita'S HospitalComment on above:Performed By: #### CBC, CMP wRFX A1C #### [facility] [address] [place] [address] USASerum or plasma albumin/globulin mass ratioOrdered By: Nishant Ceja on 71-91-6820Bmlueiu/Globulin [Mass ratio]1.6 {ratio}Normal St. Rita'S HospitalComment on above:Performed By: #### CBC, CMP wRFX A1C #### [facility] [address] [place] [address] USASerum or plasma anion gap determinationOrdered By: Nishant Ceja on 30-88-5175Fpdpz gap [Moles/Vol]14.7 mmol/LNormal6.0-15.0St. [facility]'S HospitalComment on above:Performed By: #### CBC, CMP wRFX A1C #### [facility] [address] [place] [address] USASodium [Moles/volume] in Serum or PlasmaOrdered By: Nishant Ceja on 87-87-9268Akryul [Moles/Vol]132 mmol/CQrh870-620MxawxxsasSt. Rita'S HospitalComment on above:Performed By: #### CBC, CMP wRFX A1C #### [facility] [address] [place] [id number] USASpecific gravity Test strip (U) [Rel density]Ordered By: Nishant Ceja on 65-30-1431Lqnrebbr gravity (U) [Rel density]1.0141.001-1.030 [facility]'S HospitalUrea nitrogen [Mass/volume] in Serum or Plasma Ordered By: Nishant Ceja on 73-47-9320Pcyn nitrogen [Mass/Vol]7 mg/dLNormal02-06 [facility]'S HospitalComment on above:Performed By: #### CBC, CMP wRFX A1C #### [facility] [address] [place] [id number] USAUrinalysison 46-48-6120Qscsdwjrg,UrineNegativeNormal NegativeThe [facility] Physician GroupComment on above:Order Comment: Name Collection Type:: Clean-Voided MidstreamPerformed By: #### CBC, CMP wRFX A1C #### [place] [address] USAGlucose Ql (U)NormalNormalNormHCA Florida Starke Emergency Physician GroupComment on above:Order Comment: Name Collection Type:: Clean-Voided MidstreamPerformed By: #### CBC, CMP wRFX A1C #### [place] [address] USANitrite,UrineNegativeNormalNegativeLarkin Community Hospital Behavioral [facility] Services Physician GroupComment on above:Order Comment: Name Collection Type:: Clean-Voided MidstreamPerformed By: #### CBC, CMP wRFX A1C #### [place] [address] USAOccult Blood,UrineNegativeNormalNegativeLarkin Community Hospital Behavior[facility] Services Physician GroupComment on above:Order Comment: Name Collection Type:: Clean- Voided MidstreamResult Comment: PERFORMED BY: [place] [address] PATHOLOGIST [employer] SOFIE MONTEIRO M.D.Performed By: #### CBC, CMP wRFX A1C #### [place] [address] USAProtein,UrineNegativeNormalNegativeLarkin Community Hospital Behavioral Health Services Physician GroupComment on above:Order Comment: Name Collection Type:: Clean-Voided MidstreamPerformed By: #### CBC, CMP wRFX A1C #### [place] [address] USASpecificy [place],Urine1.239Dsuxyp8.001-1.030[facility] Physician GroupComment on above:Order Comment: Name Collection Type:: Clean- Voided MidstreamPerformed By: #### CBC, CMP wRFX A1C #### [place] [address] USAUrobilinogen,UrineNormalNormalNormHCA Florida Starke Emergency Physician GroupComment on above:Order Comment: Name Collection Type:: Clean- Voided MidstreamPerformed By: #### CBC, CMP wRFX A1C #### [place] [address] [place] [address] USAUrobilinogen Test strip (U) [Mass/Vol]Ordered By: Nishant Ceja on 83-12-2255Adnvzymrgrlb (U) [Mass/Vol]Normal mg/dLNormalSt. Rita'S HospitalpH of Urine by Test stripOrdered By: Nishant Ceja on 21-97-4884oH (U)6.0 [pH]Normal5.0-9.0St. [facility]'S HospitalComment on above:Order Comment: Name Collection Type:: Clean-Voided MidstreamPerformed By: #### CBC, CMP wRFX A1C #### [facility] [address] [place] [address] GNU89lg 54-63-299185Odpwh to patient to see if he had completed his testing ordered by Dr. Vidal. Patient states he has not completed testing, Business Services Representative asked patient if he would like to do testing, patient agreed to have testing done. I advised patient that scheduling would be calling him to sched testing and they will transfer him down to us to sched his follow up with Dr. Vidal. Patient verbalized understanding and agreed with plan of care.Corey HospitalX-ray reportOrdered By: Nikos Rivera on 10-86-6047Eatrv reportPARKVIEW HEALTH BRYAN [facility] [address] [place] [address] XRay Report Signed Patient: Rehan rTejo MR#: [id number] : 1965 Acct:[id number] Age/Sex: 59 / M ADM Date: 5 Loc: SOX Room: Type: [facility] Attending Dr: Nishant Ceja DO Copies [...] Rivera M.D. 12/22/2024 10:26 PM Dictation Location: RADIO-PC-29 Transcribed By: NORI 12/22/242225 Dictated By: Nikos Rivera MD 12/22/242224 Signed By: 12/22/242225 [facility] Work Phone: XR shoulder RT min 2V*on 94-86-9827WF shoulder RT min 2V*[facility] [address] [place] [address] XRay Report Signed Patient: Rehan Trejo MR#: [id number] : 1965 Acct:[id number] Age/Sex: 59 / M ADM Date: 12/22/24 Loc: [facility] Room: Type: [facility] Attending Dr: Nishant Ceja DO Copies to: [...] Rivera M.D. 12/22/2024 10:26 PM Dictation Location: RADIO-PC-29 Transcribed By: NORI 12/22/242225 Dictated By: Nikos Rivera MD 12/22/242224 Signed By: 12/22/242225NoCritical access hospital Physician GroupUS venous duplex LE RTon 70-03-6304VX venous duplex LE [facility] [place] [address] [place] [address] Ultrasound Report Signed Patient: Rehan Trejo MR#: [id number] : 1965 Acct:[id number] Age/Sex: 59 / M ADM Date: 12/03/24 Loc: 5T Room: 1F1527-8 Type: ADM IN Attending Dr: Paco Jimenez [...] Donnelly M.D. 12/12/2024 11:17 AM Dictation Location: [place] [address] Tech: Ana Rosa Yin Transcribed By: NORI 12/12/24 111 Dictated By: Zaire Donnelly MD 12/12/241116 Signed By: 12/12/[address] [place] [address] Physician GroupAlanine aminotransferase [Enzymatic activity/volume] in Serum or PlasmaOrdered By: Paco Jimenez on 05-81-0555FCN [Catalytic activity/Vol]Alanine aminotransferase [Enzymatic activity/volume] in Serum or Plasma[address] [place], [place] [address]ALT [Catalytic activity/Vol]37 U/LNormal[address] [place], [place] [address]Comment on above:Performed By: #### CBC, CMP wRFX A1C #### [place] [address] USAAlbumin [Mass/volume] in Serum or Plasma by Bromocresol green (BCG) dye binding methoOrdered By: Paco Jimenez on 12-04-2024 Albumin BCG dye [Mass/Vol]Albumin [Mass/volume] in Serum or Plasma by Bromocresol green (BCG) dye binding methoLow3.5-5.7FUniversity Hospitals Geauga Medical CenterAlbumin BCG dye [Mass/Vol]3.2 g/dLLow3.5-5.7FUniversity Hospitals Geauga Medical CenterAlkaline phosphatase [Enzymatic activity/volume] in Serum or PlasmaOrdered By: Paco Jimenez on 69-52-1029FSL [Catalytic activity/Vol]Alkaline phosphatase [Enzymatic activity/volume] in Serum or Qviluv93-289Cwrmfgfmh[address] [place], [place] [address]ALP [Catalytic activity/Vol]92 U/QTfqfhh18-528Xdbpacbtt66 Williams StreetComment on above:Performed By: #### CBC, CMP wRFX A1C #### [facility] [address] [place] [address] USAAspartate aminotransferase [Enzymatic activity/volume] in Serum or PlasmaOrdered By: Paco Jimenez on 59-85-1188QJA [Catalytic activity/Vol]Aspartate aminotransferase [Enzymatic activity/volume] in Serum or Qnzouu14-94Sscswpers[address] [place], [place] [address]AST [Catalytic activity/Vol]21 U/L Wecilz64-89Hrfqlfpsi[address] [place], [place] [address]Comment on above:Performed By: #### CBC, CMP wRFX A1C #### [facility] [address] [place] [address] USABasophils Auto (Bld) [#/Vol]Ordered By: Paco Jimenez on 57-18-7669Axhdrdsep (Bld) [#/Vol]Automated basophil count0.0-0.2 [facility]'S HospitalBasophils [#/volume] in Blood by Automated countOrdered By: Paco Jimenez on 22-03-5455Mrqgxsnjh (Bld) [#/Vol]0.0 10*3/uLNormal0.0-0.2FUniversity Hospitals Geauga Medical CenterComment on above:Result Comment: PERFORMED BY: [address] [address] PATHOLOGIST [employer] CHACORTA DE DIOS M.D.Performed By: #### CBC, CMP wRFX A1C #### [facility] [address] [place] [address] USABasophils/100 WBC Auto (Bld)Ordered By: Paco Jimenez on 13-70-7664Tevkegtrx/100 WBC (Bld)Automated basophil %.St. [facility]'S HospitalBasophils/100 leukocytes in Blood by Automated count Ordered By: Paco Jimenez on 55-14-3723Kiidmlbqq/100 WBC (Bld)0.3 %Normal .St. Rita'S HospitalComment on above:Performed By: #### CBC, CMP wRFX A1C #### [facility] [address] [place] [id number] USABilirubin.total [Mass/volume] in Serum or PlasmaOrdered By: Paco Jimenez on 69-92-3436Mljrcqxve [Mass/Vol]Bilirubin.total [Mass/volume] in Serum or Plasma0.3-1.0[facility] Bilirubin [Mass/Vol]0.7 mg/dLNormal0.3-1.0[facility] Comment on above:Performed By: #### CBC, CMP wRFX A1C #### [facility] [address] [place] [id number] USACalcium [Mass/volume] in Serum or PlasmaOrdered By: Paco Jimenez on 22-86-0607Ihahtfn [Mass/Vol]Calcium [Mass/volume] in Serum or PlasmaLow8.6-10.3FUniversity Hospitals Geauga Medical CenterCalcium [Mass/Vol]7.8 mg/dLLow8.6-10.3FUniversity Hospitals Geauga Medical CenterComment on above:Performed By: #### CBC, CMP wRFX A1C #### [facility] [address] [place] [id number] USACarbon dioxide, total [Moles/volume] in Serum or Plasma Ordered By: Paco Jimenez on 34-15-4419NI2 [Moles/Vol]Carbon dioxide, total [Moles/volume] in Serum or Cufcgx13.0-31.0St[facility]'S HospitalCO2 [Moles/Vol]21.8 mmol/SZvdjyy59.0-31.0[facility] Comment on above:Performed By: #### CBC, CMP wRFX A1C #### [facility] [address] [place] [address] USAChloride [Moles/volume] in Serum or PlasmaOrdered By: Paco Jimenez on 95-11-4125Kdaojomz [Moles/Vol]Chloride [Moles/volume] in Serum or Yoefkr30-731NrvwzypxgSt. Rita'S HospitalChloride [Moles/Vol]100 mmol/GQcmkwa19-688JdguetjcsSt. Rita'S HospitalComment on above:Performed By: #### CBC, CMP wRFX A1C #### [place] [address] USAComplete Blood Count Auto Diffon 16-31-5497Rlgc Corpuscular HGB Conc34.6 g/nWWlzpup35.5-35.6[facility] Physician GroupComment on above:Performed By: #### CBC, CMP wRFX A1C #### [place] [address] USANRBC%0.1 /100{WBC}Normal0-0.5[facility] Comment on above:Performed By: #### CBC, CMP wRFX A1C #### [place] [address] USAComprehensive Metabolic Panelon 33-78-1229Idshciy [Mass/Vol]3.2 g/dLLow3.5-5.7The [facility] Physician GroupComment on above: Performed By: #### CBC, CMP wRFX A1C #### [facility] [address] [place] [address] USACreatinine Clr Calc Ivsufstc068.15NormalThe [facility] Physician GroupComment on above:Performed By: #### CBC, CMP wRFX A1C #### [place] [address] USAGFR/1.73 sq M.predicted MDRD (S/P/Bld) [Vol rate/Area] mL/min/{1.73_m2}NormalThe [facility] Physician [facility] HospitalComment on above:Performed By: #### CBC, CMP wRFX A1C #### [place] [address] USACreatinine [Mass/volume] in Serum or PlasmaOrdered By: Paco Jimenez on 48-94-4540Ewwhahhqcq [Mass/Vol]Creatinine [Mass/volume] in Serum or Plasma0.70-1.30St. [facility]'S HospitalCreatinine [Mass/Vol]0.93 mg/dLNormal0.70-1.30St. [facility]'S HospitalComment on above:Performed By: #### CBC, CMP wRFX A1C #### [facility] [address] [place] [address] USAEosinophils Auto (Bld) [#/Vol]Ordered By: Paco Jimenez on 68-87-8428Edviadfebgk (Bld) [#/Vol]Automated eosinophil count 0.0-0.45St. [facility]'S HospitalEosinophils [#/volume] in Blood by Automated countOrdered By: Paco Jimenez on 32-73-9275Idjgpsqdzuv (Bld) [#/Vol]0.0 10*3/uLNormal0.0-0.45St. [facility]'S HospitalComment on above:Performed By: #### CBC, CMP wRFX A1C #### [facility] [address] [place] [address] USAEosinophils/100 WBC Auto (Bld)Ordered By: Paco Jimneez on 44-92-6118Bzxglrkoxgk/100 WBC (Bld)Automated eosinophil %. [facility]'S HospitalEosinophils/100 leukocytes in Blood by Automated countOrdered By: Paco Jimenez on 04-58-2072Vgqwabuplac/100 WBC (Bld)0.3 %Normal.St. [facility]'S HospitalComment on above:Performed By: #### CBC, CMP wRFX A1C #### [place] [id number] USAErythrocyte distribution width Auto (RBC) [Ratio]Ordered By: Paco Jimenez on 14-96-0011Cigcphgsqba distribution width (RBC) [Ratio]Erythrocyte distribution width [Ratio] by Automated count12.0-14.8 [facility]'S HospitalErythrocyte distribution width [Ratio] by Automated countOrdered By: Paco Jimenez on 37-32-8661Kiawpypstgk distribution width (RBC) [Ratio]13.7 %Ylizot67.0-14.8St. [facility]'S HospitalComment on above:Performed By: #### CBC, CMP wRFX A1C #### [facility] [address] [place] [address] USAErythrocytes [#/volume] in Blood by Automated countOrdered By: Paco Jimenez on 39-34-1786XQW (Bld) [#/Vol]3.31 10*6/uLLow3.90-5.60 [facility]S HospitalComment on above:Performed By: #### CBC, CMP wRFX A1C #### [facility] [address] [place] [address] USAGlobulin Calc (S) [Mass/Vol]Ordered By: Paco Jimenez on 70-30-4448Baoabihu (S) [Mass/Vol]Serum globulin measurement by calculation (mass/volume)[facility]'S HospitalGlucose [Mass/volume] in Serum or PlasmaOrdered By: Paco Jimenez on 38-42-0830Sidrzcx [Mass/Vol]Glucose [Mass/volume] in Serum or Ykxaqa88-796LcljvubngSt. Rita'S HospitalComment on above:ADA recommended reference rangeRandom Glucose Reference Range is dependent on time and content of last meal. Glucose of more than 200 mg/dL in a nonstressed, ambulatory subject supports the diagnosisof Diabetes Mellitus.Glucose [Mass/Vol]95 mg/yIJvianx12-151GbzrqymkhSt. Rita'S HospitalComment on above:ADA recommended reference rangeRandom Glucose Reference Range is dependent on time and content of last meal. Glucose of more than 200 mg/dL in a nonstressed, ambulatory subject supports the diagnosisof Diabetes Mellitus.Result Comment: Random Glucose Reference Range is dependent on time and content of last meal. Glucose of more than 200 mg/dL in a nonstressed, ambulatory subject supports the diagnosis of Diabetes Mellitus. ADA recommended reference rangePerformed By: #### CBC, CMP wRFX A1C #### [facility] [address] [place] [address] USAHematocrit Auto (Bld) [Volume fraction]Ordered By: Paco Jimenez on 19-62-2654Kybwgqosbx (Bld) [Volume fraction]Hematocrit [Volume Fraction] of Blood by Automated gwilkEbs93.8-50.0[facility]'S HospitalHematocrit [Volume Fraction] of Blood by Automated countOrdered By: Paco Jimenez on 56-23-1647Sqkcfiunhh (Bld) [Volume fraction]32.8 % Low38.8-50.0St. [facility]'S HospitalComment on above:Performed By: #### CBC, CMP wRFX A1C #### [facility] [address] [place] [address] USAHemoglobin [Mass/volume] in BloodOrdered By: Paco Jimenez on 36-88-8610Ghacnyeizo (Bld) [Mass/Vol]Hemoglobin [Mass/volume] in AecxyQel15.0-17.0[facility]S HospitalHemoglobin (Bld) [Mass/Vol] 11.3 g/dLLow13.0-17.0St[facility]'S HospitalComment on above:Performed By: #### CBC, CMP wRFX A1C #### [facility] [address] [place] [address] USALeukocytes [#/volume] corrected for nucleated erythrocytes in Blood by Automated counOrdered By: Paco Jimenez on 58-26-2848FAJ corrected for nucl RBC Auto (Bld) [#/Vol]Leukocytes [#/volume] corrected for nucleated erythrocytes in Blood by Automated coun4.1-10.5FUniversity Hospitals Geauga Medical CenterWBC corrected for nucl RBC Auto (Bld) [#/Vol]9.1 10*3/uL4.1-10.5 [facility] HospitalLeukocytes [#/volume] in Blood by Automated countOrdered By: Paco Jimenez on 99-09-1610TBA (Bld) [#/Vol]9.1 10*3/uL Normal4.1-10.5FUniversity Hospitals Geauga Medical CenterComment on above:Performed By: #### CBC, CMP wRFX A1C #### [facility] [address] [place] [address] USALymphocytes Auto (Bld) [#/Vol]Ordered By: Paco Jimenez on 90-60-7624Zxzqnkkunzx (Bld) [#/Vol]Lymphocytes [#/volume] in Blood by Automated count1.00-4.8[facility]'S HospitalLymphocytes [#/volume] in Blood by Automated countOrdered By: Paco Jimenez on 37-65-8647Mbwglpmnenq (Bld) [#/Vol]1.9 10*3/uLNormal1.00-4.8St. [facility]'S HospitalComment on above:Performed By: #### CBC, CMP wRFX A1C #### [facility] [address] [place] [address] USALymphocytes/100 WBC Auto (Bld)Ordered By: Paco Jimenez on 60-55-2498Yteqzokmhva/100 WBC (Bld)Lymphocytes/100 leukocytes in Blood by Automated count.[facility]'S HospitalLymphocytes/100 leukocytes in Blood by Automated countOrdered By: Paco Jimenez on 22-23-1079Gdxzvyinysg/100 WBC (Bld)20.4 %Normal.[facility]'S HospitalComment on above:Performed By: #### CBC, CMP wRFX A1C #### [facility] [address] [place], [place] [id number] [facility] Auto (RBC) [Entitic mass]Ordered By: Paco Jimenez on 16-26-9284SBY (RBC) [Entitic mass]MCH [Entitic mass] by Automated count27.5-35.2FOhioHealth Van Wert Hospital [Entitic mass] by Automated countOrdered By: Paco Jimenez on 73-03-6810RUT (RBC) [Entitic mass]34.3 vwEhxbwh00.5-35.2FUniversity Hospitals Geauga Medical CenterComment on above:Performed By: #### CBC, CMP wRFX A1C #### [facility] [address] [place], [place] [id number] [facility] Auto (RBC) [Mass/Vol]Ordered By: Paco Jimenez on 08-95-8198AWYY (RBC) [Mass/Vol]MCHC [Mass/volume] by Automated count 32.5-35.6FOhioHealth Mansfield HospitalHC (RBC) [Mass/Vol]34.6 g/dL 32.5-35.6FOhioHealth Mansfield HospitalV Auto (RBC) [Entitic vol]Ordered By: Paco Jimenez on 44-03-7630AGF (RBC) [Entitic vol]MCV [Entitic volume] by Automated count83.5-101UC Medical CenterV [Entitic volume] by Automated countOrdered By: Paco Jimenez on 03-79-2340VLP (RBC) [Entitic vol]99.[address]h23[address]5-[address] [place], [place] [address]Comment on above:Performed By: #### CBC, CMP wRFX A1C #### [place] [id number] USAMonocytes Auto (Bld) [#/Vol]Ordered By: Paco Jimenez on 61-10-6398Awmrytaha (Bld) [#/Vol]Automated blood monocyte count High0.0-0.8St. [facility]'S HospitalMonocytes [#/volume] in Blood by Automated countOrdered By: Paco Jimenez on 17-41-0889Qvejtqhhj (Bld) [#/Vol]1.1 10*3/uLHigh0.0-0.8St. [facility]'S HospitalComment on above: Performed By: #### CBC, CMP wRFX A1C #### [place] [id number] USAMonocytes/100 WBC Auto (Bld)Ordered By: Paco Jimenez on 09-25-8620Glpqbjhhy/100 WBC (Bld)Automated monocyte %.St. [facility]'S HospitalMonocytes/100 leukocytes in Blood by Automated count Ordered By: Paco Jimenez on 40-38-8928Cfbmcjnif/100 WBC (Bld)11.8 % Normal.St. Rita'S HospitalComment on above:Performed By: #### CBC, CMP wRFX A1C #### [facility] [address] [place], [place] [address] USANeutrophils Auto (Bld) [#/Vol]Ordered By: Paco Jimenez on 42-34-7608Uytlaywazok (Bld) [#/Vol]Neutrophils [#/volume] in Blood by Automated count1.8-7.7FUniversity Hospitals Geauga Medical CenterNeutrophils [#/volume] in Blood by Automated countOrdered By: Paco Jimenez on 19-01-4980Dabvryxwepi (Bld) [#/Vol]6.1 10*3/uLNormal1.8-7.7FUniversity Hospitals Geauga Medical CenterComment on above:Performed By: #### CBC, CMP wRFX A1C #### [facility] [address] [place] [address] USANeutrophils/100 WBC Auto (Bld)Ordered By: Paco Jimenez on 92-78-9313Masdczifxgw/100 WBC (Bld)Automated neutrophil %. [facility]'S HospitalNeutrophils/100 leukocytes in Blood by Automated countOrdered By: Paco Jimenez on 29-23-1976Zcsvjbaacxp/100 WBC (Bld)67.2 %Normal.St. Rita'S HospitalComment on above:Performed By: #### CBC, CMP wRFX A1C #### [place] [id number] USANo Panel InformationOrdered By: Paco Jimenez on 75-65-0143Zhbnijdjp GFR (CKD-EPI)> 60.0 mL/MinSt. Rita'S Hospital Pharmacy Creatinine Clearance (Xeck239.15[facility] Nucleated erythrocytes [Presence] in Blood by Automated countOrdered By: Paco Jimenez on 90-14-0798Wgbqzxhhk RBC Auto Ql (Bld)Nucleated erythrocytes [Presence] in Blood by Automated count0-0.5FUniversity Hospitals Geauga Medical CenterNucleated RBC Auto Ql (Bld)0.1 /100{WBC}0-0.5FUniversity Hospitals Geauga Medical CenterPlatelet mean volume Auto (Bld) [Entitic vol]Ordered By: Paco Jimenez on 42-46-7629Txouuvgz mean volume (Bld) [Entitic vol]Platelet mean volume [Entitic volume] in Blood by Automated count6.6-10.1FUniversity Hospitals Geauga Medical CenterPlatelet mean volume [Entitic volume] in Blood by Automated count Ordered By: Paco Jimenez on 38-31-6137Rbkfrtgj mean volume (Bld) [Entitic vol]7.7 fLNormal6.6-10.1FUniversity Hospitals Geauga Medical CenterComment on above:Performed By: #### CBC, CMP wRFX A1C #### [facility] [address] [place] [id number] USAPlatelets Auto (Bld) [#/Vol]Ordered By: Paco Jimenez on 24-53-3400Ejavibjju (Bld) [#/Vol]Platelets [#/volume] in Blood by Automated jihbk270-[address]42Idonq[address] [place], [place] [address]Platelets [#/volume] in Blood by Automated countOrdered By: Paco Jimenez on 51-15-2466Azjpygxxi (Bld) [#/Vol]179 10*3/aPZfjolb759-313Pquvuocwh[address] [place], [place] [address]Comment on above:Performed By: #### CBC, CMP wRFX A1C #### [facility] [address] [place] [id number] USAPotassium [Moles/volume] in Serum or PlasmaOrdered By: Paco Jimenez on 12-60-3040Fudmoxszl [Moles/Vol]Potassium [Moles/volume] in Serum or Plasma3.5-5.1FUniversity Hospitals Geauga Medical CenterPotassium [Moles/Vol] 3.8 mmol/LNormal3.5-5.1FUniversity Hospitals Geauga Medical CenterComment on above: Performed By: #### CBC, CMP wRFX A1C #### [facility] [address] [place] [id number] USAPrealbumin [Mass/volume] in Serum or PlasmaOrdered By: Paco Jimenez on 39-89-6853Fxgxytbfqo [Mass/Vol]Prealbumin [Mass/volume] in Serum or FdetocRfs56.0-34.0St. [facility]'S HospitalPrealbumin [Mass/Vol]13.4 mg/dLLow17.0-34.0St. [facility]'S HospitalComment on above:Result Comment: PERFORMED BY: [place] [address] PATHOLOGIST [employer] CHACORTA DE DIOS M.D.Performed By: #### CBC, CMP wRFX A1C #### [address] [address] USAProtein [Mass/volume] in Serum or PlasmaOrdered By: Paco Jimenez on 68-34-5938Iqbctpm [Mass/Vol]Protein [Mass/volume] in Serum or PlasmaLow6.4-8.9St. [facility]'S HospitalProtein [Mass/Vol]5.1 g/dLLow6.4-8.9St. [facility]'S HospitalComment on above:Performed By: #### CBC, CMP wRFX A1C #### [place] [address] USARBC Auto (Bld) [#/Vol]Ordered By: Paco Jimenez on 41-12-1768RAB (Bld) [#/Vol]Erythrocytes [#/volume] in Blood by Automated count Low3.90-5.60UK Healthcareerum globulin measurement by calculation (mass/volume)Ordered By: Paco Jimenez on 98-42-3925Ounjveog (S) [Mass/Vol]1.9 g/dLNormalSt. Rita'S HospitalComment on above: Performed By: #### CBC, CMP wRFX A1C #### [facility] [address] [place] [address] USASerum or plasma albumin/globulin mass ratioOrdered By: Paco Jimenez on 76-28-4153Qkhozkr/Globulin [Mass ratio]Serum or plasma albumin/globulin mass ratioSt. Rita'S HospitalAlbumin/Globulin [Mass ratio]1.7 {ratio}NormalSt. Rita'S HospitalComment on above: Performed By: #### CBC, CMP wRFX A1C #### [address] [address] USASerum or plasma anion gap determinationOrdered By: Paco Jimenez on 28-19-8581Tgbbx gap [Moles/Vol]Serum or plasma anion gap determination6.0-15.0St. [facility]'S HospitalAnion gap [Moles/Vol]13.0 mmol/LNormal6.0-15.0St. [facility]'S HospitalComment on above:Performed By: #### CBC, CMP wRFX A1C #### [facility] [address] [place] [id number] USASodium [Moles/volume] in Serum or PlasmaOrdered By: Paco Jimenez on 31-77-5386Zzmeff [Moles/Vol]Sodium [Moles/volume] in Serum or BgwziqIuy856-515PrlsykmpdUK Healthcareodium [Moles/Vol]131 mmol/TPdc757-751MfgsrvsrnSt. Rita'S HospitalComment on above:Performed By: #### CBC, CMP wRFX A1C #### [place] [address] USAUrea nitrogen [Mass/volume] in Serum or PlasmaOrdered By: Paco Jimenez on 43-92-5031Voir nitrogen [Mass/Vol]Urea nitrogen [Mass/volume] in Serum or Plasma7St. Rita'S HospitalUrea nitrogen [Mass/Vol]13 mg/dLNormal02-06St. Rita'S HospitalComment on above:Performed By: #### CBC, CMP wRFX A1C #### [facility] [address] [place] [address] USAWBC Auto (Bld) [#/Vol]Ordered By: Paco Jimenez on 83-51-1890HRM (Bld) [#/Vol]Leukocytes [#/volume] in Blood by Automated count 4.1-10.5FUniversity Hospitals Geauga Medical CenterBasic Metabolic Panelon 12-03-2024 Creatinine Clr Calc Mxhxvome737.38NoCritical access hospital Physician GroupComment on above:Result Comment: PERFORMED BY: [place] [address] PATHOLOGIST [employer] CHACORTA DE DIOS M.D.Performed By: #### CBC, CMP wRFX A1C #### [place] [id number] USAGFR/1.73 sq M.predicted MDRD (S/P/Bld) [Vol rate/Area] mL/min/{1.73_m2}NormalThe [facility] Center Physician GroupComment on above:Performed By: #### CBC, CMP wRFX A1C #### [facility] [address] [place] [address] USABasophils Auto (Bld) [#/Vol]Ordered By: Nsihant Ceja on 73-40-6050Rkreccqdr (Bld) [#/Vol]Automated basophil count0.0-0.2FUniversity Hospitals Geauga Medical CenterBasophils [#/volume] in Blood by Automated countOrdered By: Nisahnt Ceja on 65-26-6763Axylcnfzj (Bld) [#/Vol]0.1 10*3/uLNormal0.0-0.2 [facility]'S HospitalComment on above:Result Comment: PERFORMED BY: [place] [address] PATHOLOGIST [employer] CHACORTA DE DIOS M.D.Performed By: #### CBC, CMP wRFX A1C #### [place] [address] USABasophils/100 WBC Auto (Bld)Ordered By: Nishant Ceja on 03-66-9324Fhrfgexft/100 WBC (Bld)Automated basophil %.St. Rita'S HospitalBasophils/100 leukocytes in Blood by Automated countOrdered By: Nishant Ceja on 15-15-2419Onckfynam/100 WBC (Bld)0.7 %Normal.St. Rita'S HospitalComment on above:Performed By: #### CBC, CMP wRFX A1C #### [place] [address] USACalcium [Mass/volume] in Serum or PlasmaOrdered By: Nishant Ceja on 39-16-6312Tmbrgyl [Mass/Vol]Calcium [Mass/volume] in Serum or Plasma Low8.6-10.3FUniversity Hospitals Geauga Medical CenterCalcium [Mass/Vol]8.4 mg/dLLow 8.6-10.3FUniversity Hospitals Geauga Medical CenterComment on above:Performed By: #### CBC, CMP wRFX A1C #### [facility] [address] [place] [address] USACarbon dioxide, total [Moles/volume] in Serum or Plasma Ordered By: Nishant Ceja on 02-96-6317WJ8 [Moles/Vol]Carbon dioxide, total [Moles/volume] in Serum or OzddfuXvp08.0-31.0[facility] CO2 [Moles/Vol]20.5 mmol/LLow21.0-31.0St. [facility]'S HospitalComment on above:Performed By: #### CBC, CMP wRFX A1C #### [facility] [address] [place] [address] USAChloride [Moles/volume] in Serum or PlasmaOrdered By: Nishant Ceja on 40-57-3981Ngeburjr [Moles/Vol]Chloride [Moles/volume] in Serum or Vynzuk47-581FfblamtbpSt. Rita'S HospitalChloride [Moles/Vol]99 mmol/L Ukcxul22-345DfeeaxedoSt. Rita'S HospitalComment on above:Performed By: #### CBC, CMP wRFX A1C #### [facility] [address] [place] [address] USAComplete Blood Count Auto Diffon 90-52-7779Giok Corpuscular HGB Conc34.0 g/aDWmiuyk20.5-35.6The [facility] Physician GroupComment on above:Performed By: #### CBC, CMP wRFX A1C #### [facility] [address] [place] [address] USANRBC%0.1 /100{WBC}Normal0-0.5[facility] Physician [facility] Comment on above:Performed By: #### CBC, CMP wRFX A1C #### [facility] [address] [place] [address] USACreatinine [Mass/volume] in Serum or PlasmaOrdered By: Nishant Ceja on 63-24-8349Ghnblnrgef [Mass/Vol]Creatinine [Mass/volume] in Serum or Plasma0.70-1.30St. [facility]'S HospitalCreatinine [Mass/Vol] 0.82 mg/dLNormal0.70-1.30St. Rita'S HospitalComment on above: Performed By: #### CBC, CMP wRFX A1C #### [facility] [address] [place] [address] USAEosinophils Auto (Bld) [#/Vol]Ordered By: Nishant Ceja on 44-34-8421Fhwkvpemxpn (Bld) [#/Vol]Automated eosinophil count0.0-0.45St. Rita'S HospitalEosinophils [#/volume] in Blood by Automated countOrdered By: Nishant Ceja on 72-02-3857Yyrcsjguyqj (Bld) [#/Vol]0.0 10*3/uLNormal 0.0-0.45St. [facility]'S HospitalComment on above:Performed By: #### CBC, CMP wRFX A1C #### [facility] [address] [place] [id number] USAEosinophils/100 WBC Auto (Bld)Ordered By: Nishant Ceja on 78-12-2228Ssqwffaxkir/100 WBC (Bld)Automated eosinophil %.[facility]'S HospitalEosinophils/100 leukocytes in Blood by Automated countOrdered By: Nishant Ceja on 45-05-2854Attojdujvww/100 WBC (Bld)0.0 %Normal.[facility]. [facility]'S HospitalComment on above:Performed By: #### CBC, CMP wRFX A1C #### [facility] [address] [place] [phone] USAErythrocyte distribution width Auto (RBC) [Ratio]Ordered By: Nishant Ceja on 40-13-2490Cwkwibhygkw distribution width (RBC) [Ratio] Erythrocyte distribution width [Ratio] by Automated count12.0-14.8St. Rita'S HospitalErythrocyte distribution width [Ratio] by Automated count Ordered By: Nishant Ceja on 04-06-3257Ilqxzvhrsnx distribution width (RBC) [Ratio]14.1 %Ckkfsv77.0-14.8St. [facility]'S HospitalComment on above: Performed By: #### CBC, CMP wRFX A1C #### [facility] [address] [place] [address] USAErythrocytes [#/volume] in Blood by Automated countOrdered By: Nishant Ceja on 37-90-6855SZX (Bld) [#/Vol]3.72 10*6/uLLow3.90-5.60 [facility]S HospitalComment on above:Performed By: #### CBC, CMP wRFX A1C #### [facility] [address] [place] [phone] USAGlucose [Mass/volume] in Serum or PlasmaOrdered By: Nishant Ceja on 27-77-5487Ctieggc [Mass/Vol]Glucose [Mass/volume] in Serum or Plasma [address] StreetComment on above:ADA recommended reference rangeRandom Glucose Reference Range is dependent on time and content of last meal. Glucose of more than 200 mg/dL in a nonstressed, ambulatory subject supports the diagnosisof Diabetes Mellitus.Glucose [Mass/Vol]102 mg/dL [address] StreetComment on above:ADA recommended reference rangeRandom Glucose Reference Range is dependent on time and content of last meal. Glucose of more than 200 mg/dL in a nonstressed, ambulatory subject supports the diagnosisof Diabetes Mellitus.Result Comment: Random Glucose Reference Range is dependent on time and content of last meal. Glucose of more than 200 mg/dL in a nonstressed, ambulatory subject supports the diagnosis of Diabetes Mellitus. ADA recommended reference rangePerformed By: #### CBC, CMP wRFX A1C #### [facility] [address] [place] [id number] USAHematocrit Auto (Bld) [Volume fraction]Ordered By: Nishant Ceja on 94-36-5367Gidextqkob (Bld) [Volume fraction]Hematocrit [Volume Fraction] of Blood by Automated trbwdXud93.8-50.0St. [facility]'S HospitalHematocrit [Volume Fraction] of Blood by Automated countOrdered By: Nishant Ceja on 56-59-9145Ltxzjmkbye (Bld) [Volume fraction]36.7 %Low38.8-50.0 [facility]'S HospitalComment on above:Performed By: #### CBC, CMP wRFX A1C #### [facility] [address] [place] [address] USAHemoglobin [Mass/volume] in BloodOrdered By: Nishant Ceja on 33-75-7941Wrinuogrxi (Bld) [Mass/Vol]Hemoglobin [Mass/volume] in BloodLow 13.0-17.0St. [facility]'S HospitalHemoglobin (Bld) [Mass/Vol]12.5 g/dL Low13.0-17.0St. [facility]'S HospitalComment on above:Performed By: #### CBC, CMP wRFX A1C #### [facility] [address] [place] [address] USALeukocytes [#/volume] corrected for nucleated erythrocytes in Blood by Automated counOrdered By: Nishant Ceja on 50-71-1481QYK corrected for nucl RBC Auto (Bld) [#/Vol]Leukocytes [#/volume] corrected for nucleated erythrocytes in Blood by Automated counHigh4.1-10.5FUniversity Hospitals Geauga Medical CenterWBC corrected for nucl RBC Auto (Bld) [#/Vol]12.4 10*3/uLHigh4.1-10.5 [facility] HospitalLeukocytes [#/volume] in Blood by Automated countOrdered By: Nishant Ceja on 86-50-4678JHP (Bld) [#/Vol]12.4 10*3/uLHigh 4.1-10.5FUniversity Hospitals Geauga Medical CenterComment on above:Performed By: #### CBC, CMP wRFX A1C #### [facility] [address] [place] [address] USALymphocytes Auto (Bld) [#/Vol]Ordered By: Nishant Ceja on 30-42-7890Syjrpntrwjw (Bld) [#/Vol]Lymphocytes [#/volume] in Blood by Automated count1.00-4.8St. Rita'S HospitalLymphocytes [#/volume] in Blood by Automated countOrdered By: Nishant Ceja on 09-25-8909Wuyvlarhdlf (Bld) [#/Vol]1.8 10*3/uLNormal1.00-4.8St. [facility]'S HospitalComment on above:Performed By: #### CBC, CMP wRFX A1C #### [facility] [address] [place] [phone] USALymphocytes/100 WBC Auto (Bld)Ordered By: Nishant Ceja on 84-72-1600Rozabcmwpxd/100 WBC (Bld)Lymphocytes/100 leukocytes in Blood by Automated count.[facility]'S HospitalLymphocytes/100 leukocytes in Blood by Automated countOrdered By: Nishant Ceja on 77-51-6043Ysyddewgtcn/100 WBC (Bld)14.2 %Normal.[facility]. Rita'S HospitalComment on above: Performed By: #### CBC, CMP wRFX A1C #### [facility] [address] [place] [phone] [facility] Auto (RBC) [Entitic mass]Ordered By: Nishant Ceja on 40-26-4423ZJW (RBC) [Entitic mass]MCH [Entitic mass] by Automated count27.5-35.2 [facility] [Entitic mass] by Automated countOrdered By: Nishant Ceja on 19-38-1433PUS (RBC) [Entitic mass]33.[address]Nwfktm35.5-35.2 [facility] [facility]'S HospitalComment on above:Performed By: #### CBC, CMP wRFX A1C #### [facility] [address] [place] [id number] [facility] Auto (RBC) [Mass/Vol]Ordered By: Nishant Ceja on 01-02-0935DNGT (RBC) [Mass/Vol]MCHC [Mass/volume] by Automated count32.5-35.6 [facility] CenterHC (RBC) [Mass/Vol]34.0 g/dL32.5-35.6 UC Medical CenterV Auto (RBC) [Entitic vol]Ordered By: Nishant Ceja on 21-52-7705QPQ (RBC) [Entitic vol]MCV [Entitic volume] by Automated count83.5-101[facility] [Entitic volume] by Automated countOrdered By: Nishant Ceja on 85-45-3418MMA (RBC) [Entitic vol]98.5 fLNormal 83.5-101St. Rita'S HospitalComment on above:Performed By: #### CBC, CMP wRFX A1C #### [facility] [address] [place] [address] USAMonocytes Auto (Bld) [#/Vol]Ordered By: Nishant Ceja on 27-87-7256Veabmmgsf (Bld) [#/Vol]Automated blood monocyte countHigh0.0-0.8 [facility]'S HospitalMonocytes [#/volume] in Blood by Automated countOrdered By: Nishant Ceja on 05-72-0718Nagxxjhoe (Bld) [#/Vol]1.2 10*3/uL High0.0-0.8St. Rita'S HospitalComment on above:Performed By: #### CBC, CMP wRFX A1C #### [facility] [address] [place] [id number] USAMonocytes/100 WBC Auto (Bld)Ordered By: Nishant Ceja on 61-77-7279Abnnonomw/100 WBC (Bld)Automated monocyte %.[facility]'S HospitalMonocytes/100 leukocytes in Blood by Automated countOrdered By: Nishant Ceja on 20-02-7132Omeejyuoi/100 WBC (Bld)9.5 %Normal.[facility]. Rita'S HospitalComment on above:Performed By: #### CBC, CMP wRFX A1C #### [facility] [address] [place] [id number] USANeutrophils Auto (Bld) [#/Vol]Ordered By: Nishant Ceja on 16-55-2131Njufxogbovc (Bld) [#/Vol]Neutrophils [#/volume] in Blood by Automated countHigh1.8-7.7FUniversity Hospitals Geauga Medical CenterNeutrophils [#/volume] in Blood by Automated countOrdered By: Nishant Ceja on 60-19-0912Gfeltjbtffs (Bld) [#/Vol]9.4 10*3/uLHigh1.8-7.7FUniversity Hospitals Geauga Medical CenterComment on above: Performed By: #### CBC, CMP wRFX A1C #### [facility] [address] [place] [id number] USANeutrophils/100 WBC Auto (Bld)Ordered By: Nishant Ceja on 44-81-2926Hyuoualgbrq/100 WBC (Bld)Automated neutrophil %.[facility] Rita'S HospitalNeutrophils/100 leukocytes in Blood by Automated countOrdered By: Nishant Ceja on 32-36-9026Rhmqnxelbxl/100 WBC (Bld)75.6 %Normal.[facility]. Rita'S HospitalComment on above:Performed By: #### CBC, CMP wRFX A1C #### [facility] [address] [place] [address] USANo Panel InformationOrdered By: Nishant Ceja on 32-55-4334Ohykuohga GFR (CKD-EPI)> 60.0 mL/MinSt. Rita'S Hospital Pharmacy Creatinine Clearance (Dsqm195.38[facility] Nucleated erythrocytes [Presence] in Blood by Automated countOrdered By: Nishant Ceja on 34-45-6887Axrjjrejs RBC Auto Ql (Bld)Nucleated erythrocytes [Presence] in Blood by Automated count0-0.5FUniversity Hospitals Geauga Medical CenterNucleated RBC Auto Ql (Bld)0.1 /100{WBC}0-0.5FUniversity Hospitals Geauga Medical CenterPlatelet mean volume Auto (Bld) [Entitic vol]Ordered By: Nishant Ceja on 59-93-2078Kurdjwtq mean volume (Bld) [Entitic vol]Platelet mean volume [Entitic volume] in Blood by Automated count6.6-10.1FUniversity Hospitals Geauga Medical CenterPlatelet mean volume [Entitic volume] in Blood by Automated countOrdered By: Nishant Ceja on 40-91-0335Szqhsati mean volume (Bld) [Entitic vol]8.6 fLNormal6.6-10.1FUniversity Hospitals Geauga Medical CenterComment on above:Performed By: #### CBC, CMP wRFX A1C #### [facility] [address] [place] [id number] USAPlatelets Auto (Bld) [#/Vol]Ordered By: Nishant Ceja on 77-26-4043Dqhexqzmf (Bld) [#/Vol]Platelets [#/volume] in Blood by Automated -372GufdqtninSt. Rita'S HospitalPlatelets [#/volume] in Blood by Automated countOrdered By: Nishant Ceja on 22-13-6860Lxohyvefk (Bld) [#/Vol]209 10*3/iQLeypym648-059UwqhkjubxSt. Rita'S HospitalComment on above:Performed By: #### CBC, CMP wRFX A1C #### [facility] [address] [place] [address] USAPotassium [Moles/volume] in Serum or PlasmaOrdered By: Nishant Ceja on 70-81-8411Fuvfnitna [Moles/Vol]Potassium [Moles/volume] in Serum or Plasma3.5-5.1FUniversity Hospitals Geauga Medical CenterPotassium [Moles/Vol]4.1 mmol/LNormal3.5-5.1FUniversity Hospitals Geauga Medical CenterComment on above:Performed By: #### CBC, CMP wRFX A1C #### [facility] [address] [place] [address] USARBC Auto (Bld) [#/Vol]Ordered By: Nishant Ceja on 49-14-4299JXY (Bld) [#/Vol]Erythrocytes [#/volume] in Blood by Automated count Low3.90-5.60UK Healthcareerum or plasma anion gap determinationOrdered By: Nishant Ceja on 30-67-7925Tmvoo gap [Moles/Vol]Serum or plasma anion gap determination6.0-15.0St. Rita'S HospitalAnion gap [Moles/Vol]13.6 mmol/LNormal6.0-15.0St. Rita'S HospitalComment on above:Performed By: #### CBC, CMP wRFX A1C #### [facility] [address] [place] [address] USASodium [Moles/volume] in Serum or PlasmaOrdered By: Nishant Ceja on 15-90-9423Ynwrsg [Moles/Vol]Sodium [Moles/volume] in Serum or Plasma Vpy875-137LpbbzpogeUK Healthcareodium [Moles/Vol]129 mmol/LLow 136-145St. Rita'S HospitalComment on above:Performed By: #### CBC, CMP wRFX A1C #### [facility] [address] [place] [address] USAUrea nitrogen [Mass/volume] in Serum or PlasmaOrdered By: Nishant Ceja on 35-33-4771Vrue nitrogen [Mass/Vol]Urea nitrogen [Mass/volume] in Serum or Plasma02-06[facility]. Rita'S HospitalUrea nitrogen [Mass/Vol] 12 mg/dLNormal02-06St. Rita'S HospitalComment on above:Performed By: #### CBC, CMP wRFX A1C #### [facility] [address] [place] [address] USAWBC Auto (Bld) [#/Vol]Ordered By: Nishant Ceja on 57-36-2222CUM (Bld) [#/Vol]Leukocytes [#/volume] in Blood by Automated countHigh 4.1-10.5FUniversity Hospitals Geauga Medical CenterABO/Rh Retypeon 53-09-4865LKW/RH Recheck ResultPositiveNormalThe [facility] Physician [facility] HospitalComment on above:Result Comment: PERFORMED BY: [place] [address] PATHOLOGIST [employer] ENGINEER CHACORTA DE DIOS M.D.Basic Metabolic Panelon 70-68-7962Vamnt gap [Moles/Vol]12.5 mmol/LNormal6.0-15.0The [facility] Physician [facility] Surgical HospitalComment on above:Performed By: #### BMP, PT, MG, PTT, CBC #### [facility] [address] [place] [address] USACalcium [Mass/Vol]8.6 mg/dLNormal8.6-10.3The [facility] Physician GroupComment on above:Performed By: #### BMP, PT, MG, PTT, CBC #### [facility] [address] [place] [address] USAChloride [Moles/Vol]99 mmol/LJomrdx86-004Psu [facility] Physician GroupComment on above:Performed By: #### BMP, PT, MG, PTT, CBC #### [facility] [address] [place] [address] USACO2 [Moles/Vol]21.5 mmol/LRtvrzy98.0-31.0The [facility] Physician GroupComment on above:Performed By: #### BMP, PT, MG, PTT, CBC #### [facility] [address] [place] [address] USACreatinine [Mass/Vol]0.78 mg/dLNormal0.70-1.30The [facility] Physician GroupComment on above:Performed By: #### BMP, PT, MG, PTT, CBC #### [facility] [address] [place] [address] USACreatinine Clr Calc Jfhunxpr195.55NormalThe [facility] Physician GroupComment on above:Performed By: #### BMP, PT, MG, PTT, CBC #### [facility] [address] [place] [address] USAGFR/1.73 sq M.predicted MDRD (S/P/Bld) [Vol rate/Area] mL/min/{1.73_m2}NormalThe [facility] Physician GroupComment on above:Performed By: #### BMP, PT, MG, PTT, CBC #### [facility] [address] [place] [address] USAGlucose [Mass/Vol]89 mg/dLUuxyee66-963Ynb [facility] Physician GroupComment on above:Result Comment: Random Glucose Reference Range is dependent on time and content of last meal. Glucose of more than 200 mg/dL in a nonstressed, ambulatory subject supports the diagnosis of Diabetes Mellitus. ADA recommended reference rangePerformed By: #### BMP, PT, MG, PTT, CBC #### [facility] [address] [place] [address] USAPotassium [Moles/Vol]4.0 mmol/LNormal3.5-5.1The [facility] Physician GroupComment on above:Performed By: #### BMP, PT, MG, PTT, CBC #### [facility] [address] [place] [address] USASodium [Moles/Vol]129 mmol/QQsm698-629Ihj [facility] Physician GroupComment on above:Performed By: #### BMP, PT, MG, PTT, CBC #### [place] [address] USAUrea nitrogen [Mass/Vol]14 mg/dLNormal7-25The [facility] Physician GroupComment on above:Performed By: #### BMP, PT, MG, PTT, CBC #### [place] [address] USAComplete Blood Count Auto Diffon 10-64-2193Tdifbfrbt (Bld) [#/Vol]0.1 10*3/uLNormal0.0-0.2The [facility] Physician GroupComment on above: Result Comment: PERFORMED BY: [place] [address] PATHOLOGIST [employer] ENG[employer]ER CHACORTA DE DIOS M.D.Performed By: #### BMP, PT, MG, PTT, CBC #### [place] [address] USABasophils/100 WBC (Bld)0.6 %Normal.The [facility] Physician GroupComment on above:Performed By: #### BMP, PT, MG, PTT, CBC #### [place] [address] USAEosinophils (Bld) [#/Vol]0.0 10*3/uLNormal0.0-0.45The [facility] Physician GroupComment on above:Performed By: #### BMP, PT, MG, PTT, CBC #### [place] [address] USAEosinophils/100 WBC (Bld)0.5 %Normal.The [facility] Physician GroupComment on above:Performed By: #### BMP, PT, MG, PTT, CBC #### [place] [address] USAErythrocyte distribution width (RBC) [Ratio]13.8 %Normal 12.0-14.8The [facility] Physician GroupComment on above:Performed By: #### BMP, PT, MG, PTT, CBC #### [place] [address] USAHematocrit (Bld) [Volume fraction]39.2 %Vqnfiv59.8-50.0The [facility] Physician GroupComment on above:Performed By: #### BMP, PT, MG, PTT, CBC #### [place] [address] USAHemoglobin (Bld) [Mass/Vol]13.6 g/gCAbnado65.0-17.0The [facility] Physician GroupComment on above:Performed By: #### BMP, PT, MG, PTT, CBC #### [place] [address] USALymphocytes (Bld) [#/Vol]2.2 10*3/uLNormal1.00-4.8The [facility] Physician GroupComment on above:Performed By: #### BMP, PT, MG, PTT, CBC #### [place] [address] USALymphocytes/100 WBC (Bld)24.7 %Normal.The [facility] Physician GroupComment on above:Performed By: #### BMP, PT, MG, PTT, CBC #### [address] StreetMCH (RBC) [Entitic mass]34.4 arXfzsiv89.5-35.2The [facility] Physician GroupComment on above:Performed By: #### BMP, PT, MG, PTT, CBC #### [address] (RBC) [Entitic vol]99.1 rSXoqyhh45.5-101The [facility] Physician GroupComment on above:Performed By: #### BMP, PT, MG, PTT, CBC #### [place] [address] USAMean Corpuscular HGB Conc34.7 g/gJOgztmc11.5-35.6The [facility] Physician GroupComment on above:Performed By: #### BMP, PT, MG, PTT, CBC #### [place] [address] USAMonocytes (Bld) [#/Vol]0.8 10*3/uLNormal0.0-0.8The [facility] Physician GroupComment on above:Performed By: #### BMP, PT, MG, PTT, CBC #### [facility] [address] [place] [address] USAMonocytes/100 WBC (Bld)9.0 %Normal.The [facility] Physician GroupComment on above:Performed By: #### BMP, PT, MG, PTT, CBC #### [facility] [address] [place] [address] USANeutrophils (Bld) [#/Vol]5.9 10*3/uLNormal1.8-7.7The [facility] Physician GroupComment on above:Performed By: #### BMP, PT, MG, PTT, CBC #### [facility] [address] [place] [address] USANeutrophils/100 WBC (Bld)65.2 %Normal.The [facility] Physician GroupComment on above:Performed By: #### BMP, PT, MG, PTT, CBC #### [facility] [address] [place] [address] USANRBC%0.0 /100{WBC}Normal0-0.5The [facility] Physician Group Comment on above:Performed By: #### BMP, PT, MG, PTT, CBC #### [place] [address] USAPlatelet mean volume (Bld) [Entitic vol]7.8 fLNormal 6.6-10.1The [facility] Physician GroupComment on above:Performed By: #### BMP, PT, MG, PTT, CBC #### [place] [address] USAPlatelets (Bld) [#/Vol]196 10*3/mSRclnrs785-640Cel [facility] Physician GroupComment on above:Performed By: #### BMP, PT, MG, PTT, CBC #### [place] [address] USARBC (Bld) [#/Vol]3.96 10*6/uLNormal3.90-5.60The [facility] Physician GroupComment on above:Performed By: #### BMP, PT, MG, PTT, CBC #### [facility] [address] [place] [address] USAWBC (Bld) [#/Vol]9.0 10*3/uLNormal4.1-10.5The [facility] Physician GroupComment on above:Performed By: #### BMP, PT, MG, PTT, CBC #### [facility] [address] [place] [id number] USAECG 12 lead ECGon 58-07-5042FDJ 12 lead ECGPARKVIEW HEALTH [facility] [place] [address] [place] [address] Electrocardiograph Report Signed Patient: Rehan Trejo MR#: [id number] : 1965 Acct:[id number] Age/Sex: 59 / M ADM Date: 12/01/24 Loc: Room: [address] [place] [address] Type: ADM IN Attending Dr: Luis Alberto [...] Signed By Deep Amado MD 0 12/02/24 0957NoCritical access hospital Physician GroupINR in Platelet poor plasma by Coagulation assayOrdered By: Diana Forde on 84-29-5373YUS Coag (PPP) [Relative time]INR in Platelet poor plasma by Coagulation assaySt. Rita'S HospitalComment on above:INR Therapeutic Range A) Pre- and Peroperative OAT started two weeks before surgery. NOT HIP SURGERY: 1.5 - 2.5 HIP SURGERY: 2 - 3B) Primary and secondary prevention of venous THROMBOSIS: 2 - 3C) Active venous thrombosis, pulmonary embolismand prevention of recurrent venous thrombosis: 2 - 3D) Prevention of arterial thromboembolismincluding patients with mechanical heart valves: 3 - 4.5INR Coag (PPP) [Relative time]0.9 {INR}[facility] Medical CenterComment on above:INR Therapeutic Range A) Pre- and Peroperative OAT started two weeks before surgery. NOT HIP SURGERY: 1.5 - 2.5 HIP SURGERY: 2 - 3B) Primary and secondary prevention of venous THROMBOSIS: 2 - 3C) Active venous thrombosis, pulmonary embolismand prevention of recurrent venous thrombosis: 2 - 3D) Prevention of arterial thromboembolismincluding patients with mechanical heart valves: 3 - 4.5Result Comment: INR Therapeutic Range A) Pre- and [...] patients with mechanical heart valves: 3 - 4.5Performed By: #### BMP, PT, MG, PTT, CBC #### [place] [id number] [facility] Specimen: [id number] Received: 12/03/24 Status: SUSAN Nixon Num: [id number] Spec Type: Surgical Subm Dr: Nishant Ceja, DO Tissues: A Femoral Head - Fracture (R HIP) Procedures: HE/2, Gross/Micro L4, Decalcification Age/ Patient Sex Location Account Attending Physician Rehan Trejo 59/M 4N [id number] Luis Alberto Hearn MD SPEC NUM: [id number] RECD: 12/03/24 STATUS: SUSAN WRAYAbelino NUM: [id number] BEA: 12/02/24-[address]: Nishant Ceja DO ENTERED: 12/03/[address]: JUSTIN TYPE: Surgical DEPT: S ENTERED BY: [id number] RECV BY: [id number] ORDERED: HE/2, Gross/Micro L4, Decalcification ORDERED: HE/2, [...] to yellow-bond, glistening, and uniform cut surfaces. Fermenter Operator sections are submitted in A1?A2 after decalcification in rapid Abdoul immuno. (2, , Y41-6765 A) Microscopic Description Microscopic examination is performed. Specimen: [id number] Received: 12/03/24 Status: SUSAN Nixon Num: [id number] Spec Type: Surgical Subm Dr: Nsihant Ceja, Tissues: A Femoral Head - Fracture (R HIP) Procedures: HE/2, Gross/Micro L4, Decalcification Patient: Rehan Trejo [id number] (Continued) Specimen: [id number] Received: 12/03/24 (Continued) Signed (signature on file) Rahul Correia MD 12/10/24925 (signature on file) Rahul Correia MD 12/10/24926 Specimen: [id number] Received: 12/03/24 Status: SUSAN Tiffani Num: [id number] Spec Type: Surgical Subm Dr: Nishant Ceja DO Tissues: A Femoral Head - Fracture (R HIP) Procedures: HE/Slim, Gross/Micro L4, Decalcification Patient: Rehan Trejo [id number] (Continued) Specimen: [id number] Received: 12/03/24 (Continued) CPT Codes 02244, 26061 Specimen: [id number] Received: 12/03/24 Status: SUSAN Tiffani Num: [id number] Spec Type: Surgical Subm Dr: Nishant Ceja DO Tissues: A Femoral Head - Fracture (R HIP) Procedures: HE/Slim, Gross/Micro L4, Decalcification Patient: Rehan Trejo [id number] (Continued) Signed (signature on file) Rahul Correia MD 12/10/24925 (signature on file) Rustam Correia MD 12/10/2427[facility] Physician GroupMagnesium [Mass/volume] in Serum or PlasmaOrdered By: Diana Forde on 84-74-1552Vxtizxqwn [Mass/Vol]Magnesium [Mass/volume] in Serum or Plasma1.9-2.7FUniversity Hospitals Geauga Medical CenterMagnesium [Mass/Vol]2.2 mg/dL Normal1.9-2.7FUniversity Hospitals Geauga Medical CenterComment on above:Result Comment: PERFORMED BY: [facility] [address] [place] [id number] PATHOLOGIST [employer] ENG[employer]ER CHACORTA DE DIOS M.D.Performed By: #### BMP, PT, MG, PTT, CBC #### [facility] [address] [place] [address] USAPartial Thromboplastin Timeon 65-73-1289fHYI Coag (Bld) [Time]27.2 qGfmcrv90.1-36.5The [facility] Physician [facility] HospitalComment on above:Result Comment: A hematocrit value greater than 55% may lead to inaccurate results in coagulation testing. Patients having hematocrit values >55% require a special collection tube for coagulation studies. Please contact the laboratory at [phone] for redraw instructions. PERFORMED BY: [address] [address] PATHOLOGIST [employer] ENGINEER CHACORTA DE DIOS M.D.Performed By: #### BMP, PT, MG, PTT, CBC #### [facility] [address] [place] [address] USAProthrombin time (PT)Ordered By: Diana Forde on 12-02-2024 PT Coag (PPP) [Time]Prothrombin time (PT)9.0-12.9St. Rita'S HospitalComment on above:A hematocrit value greater than 55% may lead to inaccurate results in coagulation testing. Patientshaving hematocrit values >55% require a special collection tube for coagulation studies. Please contact the laboratory at [phone] for redraw instructions.PT Coag (PPP) [Time]10.6 s Normal9.0-12.9St. Rita'S HospitalComment on above:A hematocrit value greater than 55% may lead to inaccurate results in coagulation testing. Patientshaving hematocrit values >55% require a special collection tube for coagulation studies. Please contact the laboratory at [phone] for redraw instructions.Result Comment: A hematocrit value greater than 55% may lead to inaccurate results in coagulation testing. Patients having hematocrit values >55% require a special collection tube for coagulation studies. Please contact the laboratory at [phone] for redraw instructions.Performed By: #### BMP, PT, MG, PTT, CBC #### [place] [id number] USAType and Screenon 58-01-9937KNU and Rh group Nom (Bld) Blood group B Rh(D) positiveNoCritical access hospital Physician GroupComment on above: Result Comment: PERFORMED BY: [place] [id number] PATHOLOGIST [employer] ENGINE[employer] CHACORTA DE DIOS M.D.XR hip RT min 2V(w/wo pelvis)*on 87-06-7807JX hip RT min 2V(w/wo pelvis)*[facility] [place] [address] [place] [address] XRay Report Signed Patient: Rehan Trejo MR#: [id number] : 1965 Acct:[id number] Age/Sex: 59 / M ADM Date: 12/01/24 Loc: Room: [address] [place] [address] Type: ADM IN Attending Dr: Luis Alberto [...] Rivera M.D. 12/02/2024 8:15 AM Dictation Location: [place] [address] Transcribed By: NORI 12/02/24814 Dictated By: Nikos Rivera MD 12/02/24811 Signed By: 12/02/24814[facility] Physician GroupXR low pelvis w/RT x-table hipon 46-78-8811UE low pelvis w/RT x-table hipPARKVIEW [facility] [place] [address] XRay Report Signed Patient: Rehan Trejo MR#: [id number] : 1965 Acct:[id number] Age/Sex: 59 / M ADM Date: 12/01/24 Loc: Room: [address] [place] [address] Type: ADM IN Attending Dr: Luis Alberto [...] Saxena M.D. 12/02/2024 9:09 PM Dictation Location: [facility] Transcribed By: NORI 12/02/242108 Dictated By: Zaire Saxena DO 12/02/242106 Signed By: 12/02/242108[facility] Physician GroupaPTT in Platelet poor plasma by Coagulation assayOrdered By: Diana Forde on 13-67-7774aXUQ Coag (PPP) [Time] Activated partial thromboplastin time (aPTT) in platelet poor plasma by coagulation a25.1-36.5FUniversity Hospitals Geauga Medical CenterComment on above:A hematocrit value greater than 55% may lead to inaccurate results in coagulation testing. Patientshaving hematocrit values >55% require a special collection tube for coagulation studies. Please contact the laboratory at [phone] for redraw instructions.aPTT Coag (PPP) [Time]27.2 s25.1-36.5FUniversity Hospitals Geauga Medical CenterComment on above:A hematocrit value greater than 55% may lead to inaccurate results in coagulation testing. Patientshaving hematocrit values >55% require a special collection tube for coagulation studies. Please contact the laboratory at [phone] for redraw instructions.Office Visiton 10-01-2024 Follow-up [id number] Rehan Trejo 1965 M Date Provider Department Center 10/01/2024 99690-ORAGCEELISABETH VIDAL [facility] No family history on file Level of Service:65926 CT OFFICE/OUTPATIENT ESTABLISHED MOD MDM 30 MIN Reason for Visit and Comments: Chest Pain [833352] - Intermittent, describes it as sharp at times. Hypertension [097202] Hyperlipidemia [182] - He stopped taking atorvastatin for no reason in particular. Abnormal ECG [293] - Has loop recorder, denies palpitations and lightheadedness/syncope. Shortness of Breath [927250] - Gets SOB w/wo exertion.NormalUnTrumbull Memorial HospitalCB AUTO DIFFon 86-60-9924FZUL #0.0 103/ulNormal0.0-0.1K[facility]tering Memorial HospitalComment on above:Performed By: #### BNP, T7, CMP, TSH #### [facility] [address] [place] [address] [address] Get Sarmientophils/100 WBC (Bld)0.4 %Normal0.2-2.0The [facility] Comment on above:Performed By: #### BNP, T7, CMP, TSH #### [facility] [address] [place] [address] [address] Get Babcock #0.1 103/ulNormal0.0-0.7The [facility] HospitalComment on above: Performed By: #### BNP, T7, CMP, TSH #### [facility] [address] [place] [address] Dr. Get Paytonosinophils/100 WBC (Bld)0.5 %Critically low0.9-7.0The [facility] HospitalComment on above:Performed By: #### BNP, T7, CMP, TSH #### [facility] [address] [place] [address] Dr. Get Paytonrythrocyte distribution width (RBC) [Ratio]18.6 %Critically high 11.0-15.0The [facility] HospitalComment on above:Performed By: #### BNP, T7, CMP, TSH #### [facility] [address] [place] [address] Dr. Get WhittenHematocrit (Bld) [Volume fraction]33.3 %Critically low42.0-54.[address] [facility] HospitalComment on above:Performed By: #### BNP, T7, CMP, TSH #### [facility] [address] [place] [address] Dr. Get WhittenHemoglobin (Bld) [Mass/Vol]11.1 g/dLCritically low14.0-18.0The [facility] HospitalComment on above:Performed By: #### BNP, T7, CMP, TSH #### [facility] [address] [place] [address] Dr. Get Sanford #0.30 10e3/ulCritically high0.00-0.03The [facility] Comment on above:Performed By: #### BNP, T7, CMP, TSH #### [facility] [address] [place] [address] Dr. Get Sanford %3.3 %Critically high0.0-0.5The [facility] HospitalComment on above:Performed By: #### BNP, T7, CMP, TSH #### [facility] [address] [place] [address] Dr. Get Otoole #3.0 103/ulNormal1.2-3.8The [facility] HospitalComment on above:Performed By: #### BNP, T7, CMP, TSH #### [facility] [address] [place] [address] Dr. Get Hargrovemphocytes/100 WBC (Bld)32.7 %Cktvhg07.5-60.0The [facility] HospitalComment on above:Performed By: #### BNP, T7, CMP, TSH #### [facility] [address] [place] [address] [address] Get HeadUAL DIFF REQNONormalThe [facility] HospitalComment on above: Performed By: #### BNP, T7, CMP, TSH #### [facility] [address] [place] [address] [address] Get Fried (RBC) [Entitic mass]34.8 pgCritically high25.9-34.0The [facility] HospitalComment on above:Performed By: #### BNP, T7, CMP, TSH #### [facility] [address] [place] [address] Dr. eGt Fried (RBC) [Mass/Vol]33.3 g/vKNrsowv86.9-35.2The [facility] HospitalComment on above:Performed By: #### BNP, T7, CMP, TSH #### [facility] [address] [place] [address] Dr. Get Fried (RBC) [Entitic vol]104.4 fLCritically high80.0-94.0The [facility] HospitalComment on above:Performed By: #### BNP, T7, CMP, TSH #### [facility] [address] [place] [address] Dr. Get Bill #0.4 103/ulNormal0.3-0.8The [facility] Medical Centerment on above:Performed By: #### BNP, T7, CMP, TSH #### [facility] [address] [place] [address] Dr. Get Lockettocytes/100 WBC (Bld)4.2 %Normal1.7-12.0The [facility] Comment on above:Performed By: #### BNP, T7, CMP, TSH #### [facility] [address] [place] [address] Dr. Yilan ChangNEUT #5.4 103/ulNormal1.4-6.5The [facility] Medical Centerment on above:Performed By: #### BNP, T7, CMP, TSH #### [facility] [address] [place] [address] Dr. Get Andersonutrophils/100 WBC (Bld)58.9 %Uvzaro04.0-75.0The [facility] on above:Performed By: #### BNP, T7, CMP, TSH #### [facility] [address] [place] [address] Dr. Get WhittenPlatelet mean volume (Bld) [Entitic vol]9.5 fLNormal9.5-13.5The [facility] on above:Performed By: #### BNP, T7, CMP, TSH #### [facility] [address] [place] [address] Dr. Get WhittenPLT187 103/wtYjaawl720-138Ezl [facility] on above: Performed By: #### BNP, T7, CMP, TSH #### [facility] [address] [place] [address] Dr. Get WhittenRBC3.19 106/ulCritically low4.70-6.10The [facility] on above:Performed By: #### BNP, T7, CMP, TSH #### [facility] [address] [place] [address] Dr. Get WhittenWBC9.1 103/ulNormal4.0-11.0The [facility] on above: Performed By: #### BNP, T7, CMP, TSH #### [facility] [address] [place] [address] Dr. Get WhittenPROF 14(COMP METB)on 11-40-4389Lrvfpbi [Mass/Vol]3.9 g/dLNormal 3.4-5.0The [facility] on above:Performed By: #### CMP #### [facility] [address] [place] [address] Dr. Get WhittenAlbumin/Globulin [Mass ratio]1.1 {ratio}NormalThe Taopi HospitalComment on above:Performed By: #### CMP #### [facility] [address] [place] [address] [address] Get Saba [Catalytic activity/Vol]34 U/LCritically twc86-927Vhp [facility] HospitalComment on above:Performed By: #### CMP #### [facility] [address] [place] [address] [address] Get MartinezT [Catalytic activity/Vol]21 U/PNqqlmz54-85Bct [facility] HospitalComment on above:Performed By: #### CMP #### [facility] [address] [place] [address] [address] Get Torrezon gap [Moles/Vol]17.7 mmol/LNormalThe [facility] Comment on above:Performed By: #### CMP #### [facility] [address] [place] [address] Dr. Get WhittenAST [Catalytic activity/Vol]15 U/TMwrwyr21-37Pmq [facility] HospitalComment on above:Performed By: #### CMP #### [facility] [address] [place] [address] [address] Get WhittenBilirubin [Mass/Vol]0.3 mg/dLNormal0.2-1.0[facility] Comment on above:Performed By: #### CMP #### [facility] [address] [place] [address] [address] Get WhittenCalcium [Mass/Vol]8.7 mg/dLNormal8.5-10.1[facility] Comment on above:Performed By: #### CMP #### [facility] [address] [place] [address] [address] Get WhittenChloride [Moles/Vol]99 mmol/STsfyya35-879Elz [facility] Comment on above:Performed By: #### CMP #### [facility] [address] [address] [address] Get WhittenCO2 [Moles/Vol]21.8 mmol/USbekwh21.0-32.0The [facility] Comment on above:Performed By: #### CMP #### [facility] [address] [address] [address] Get WhittenCreatinine [Mass/Vol]1.69 mg/dLCritically high0.70-1.30The [facility] HospitalComment on above:Performed By: #### CMP #### [facility] [address] [address] [address] Get PaytonGFR-AF DAZLJUNC34 mL/min/1.88b9Bjyvmmaeaj low>=60The [facility] HospitalComment on above:Performed By: #### CMP #### [facility] [address] [address] [address] Get PaytonGFR-NON AF YDIVSWQN46 mL/min/1.93f0Aoxwoekurl low>=60The [facility] HospitalComment on above:Performed By: #### CMP #### [facility] [address] [place] [address] Dr. Get WhittenGlobulin (S) [Mass/Vol]3.6 g/dLNormalThe [facility] HospitalComment on above:Performed By: #### CMP #### [facility] [address] [address] [address] Get WhittenGlucose [Mass/Vol]96 mg/uUDolggm33-469JnkKettering Memorial Hospital Comment on above:Performed By: #### CMP #### [facility] [address] [address] [address] Get WhittenPotassium [Moles/Vol]3.5 mmol/LNormal3.5-5.1The [facility] Comment on above:Performed By: #### CMP #### [facility] [address] [address] [address] Get WhittenProtein [Mass/Vol]7.5 g/dLNormal6.4-8.2The [facility] Comment on above:Performed By: #### CMP #### [facility] [address] [address] [address] Get WhittenSodium [Moles/Vol]135 mmol/LCritically wmm327-700Aya [facility] HospitalComment on above:Performed By: #### CMP #### [facility] [address] [address] [address] Get De Jesus nitrogen [Mass/Vol]15.0 mg/dLNormal7.0-18.0The [facility] HospitalComment on above:Performed By: #### CMP #### [facility] [address] [place] [address] Dr. Get De Jesus nitrogen/Creatinine [Mass ratio]8.9 mg/mgNormalThe [facility] HospitalComment on above:Performed By: #### CMP #### [facility] [address] [place] [address] Dr. Get WhittenT3, TOTAL (TRIIODOTHYRONINE)on 30-94-9603F6, TOTAL<20Critically vbl58-425Gjx [facility] HospitalComment on above:Performed By: #### CVDTBH #### [facility] [address] [place] [address] Dr. Get SeguraONIAon 90-61-7398Gdfvsau (P) [Mass/Vol]ug/dLCritically low 11-32The [facility] HospitalComment on above:Performed By: #### CMP #### [facility] [address] [place] [address] Dr. Get Dawson 35-66-5767Xewxhtqwqnn peptide B (Bld) [Mass/Vol]50.0 pg/mL Normal<=900.0The [facility] HospitalComment on above:Performed By: #### BNP, T7, CMP, TSH #### [facility] [address] [place] [address] Dr. Get Crockett ANA ADMITon 58-00-2907YN [Catalytic activity/Vol]173 U/L Fiigrq51-463Ebh [facility] HospitalComment on above:Performed By: #### BNP, T7, CMP, TSH #### [facility] [address] [place] [address] Dr. Get Melara.MB [Mass/Vol]1.64 ng/mLNormal<=3.60The [facility] Comment on above:Performed By: #### BNP, T7, CMP, TSH #### [facility] [address] [address] [address] Get WhittenHSTROP4.3 pg/mLNormal4.0-76.1The [facility] HospitalComment on above:Result Comment: CUT-OFF POINTS HAVE BEEN ESTABLISHED BASED ON THE FOURTH UNIVERSAL DEFINITIONS OF MYOCARDIAL INFARCTION. THE UPPER REFERENCE LIMIT (URL) OF TROPONIN, DEFINED THE 99TH PERCENTILE OF cTnI DISTRIBUTION IN A REFERENCE POPULATION, HAS BEEN CONFIRMED THE DECISION THRESHOLD FOR AR DIAGNOSIS.Performed By: #### BNP, T7, CMP, TSH #### [facility] [address] [place] [address] Dr. Get WhittenMYO72 ng/jWBuwbjg84-25Gjs [facility] HospitalComment on above: Performed By: #### BNP, T7, CMP, TSH #### [facility] [address] [place] [address] Dr. Get Meyer AUTO DIFFon 82-32-5645HBQQ #0.1 103/ulNormal0.0-0.1The [facility] HospitalComment on above:Performed By: #### CVDTBH #### [facility] [address] [place] [address] Dr. Get WhittenBasophils/100 WBC (Bld)0.6 %Normal0.2-2.0The [facility] Comment on above:Performed By: #### CVDTBH #### [facility] [address] [place] [address] Dr. Get Babcock #0.0 103/ulNormal0.0-0.7The [facility] HospitalComment on above: Performed By: #### CVDTBH #### [facility] [address] [place] [address] Dr. Get Paytonosinophils/100 WBC (Bld)0.4 %Critically low0.9-7.0The [facility] HospitalComment on above:Performed By: #### CVDTBH #### [facility] [address] [place] [address] Dr. Get Paytonrythrocyte distribution width (RBC) [Ratio]18.6 %Critically high 11.0-15.0The [facility] HospitalComment on above:Performed By: #### CVDTBH #### [facility] [address] [place] [address] Dr. Get WhittenHematocrit (Bld) [Volume fraction]35.4 %Critically low42.0-54.0 The [facility] HospitalComment on above:Performed By: #### CVDTBH #### [facility] [address] [place] [address] Dr. Get WhittenHemoglobin (Bld) [Mass/Vol]11.9 g/dLCritically low14.0-18.0The [facility] HospitalComment on above:Performed By: #### CVDTBH #### [facility] [address] [place] [address] Dr. Get Sanford #0.28 10e3/ulCritically high0.00-0.03The [facility] Comment on above:Performed By: #### CVDTBH #### [facility] [address] [place] [address] Dr. Get Sanford %3.5 %Critically high0.0-0.5The [facility] HospitalComment on above:Performed By: #### CVDTBH #### [facility] [address] [place] [address] Dr. Get Otoole #3.3 103/ulNormal1.2-3.8The [facility] HospitalComment on above:Performed By: #### CVDTBH #### [facility] [address] [place] [address] Dr. Get Ramirezhocytes/100 WBC (Bld)41.6 %Ftblbk55.5-60.0[facility] HospitalComment on above:Performed By: #### CVDTBH #### [facility] [address] [place] [address] Dr. Get HeadUAL DIFF REQNONormalThe [facility] HospitalComment on above: Performed By: #### CVDTBH #### [facility] [address] [place] [address] Dr. Get Manley (RBC) [Entitic mass]35.1 pgCritically high25.9-34.0The [facility] HospitalComment on above:Performed By: #### CVDTBH #### [facility] [address] [place] [address] Dr. Get Fried (RBC) [Mass/Vol]33.6 g/nWPiprco55.9-35.2The [facility] HospitalComment on above:Performed By: #### CVDTBH #### [facility] [address] [place] [address] Dr. Get Fried (RBC) [Entitic vol]104.4 fLCritically high80.0-94.0The [facility] HospitalComment on above:Performed By: #### CVDTBH #### [facility] [address] [place] [address] Dr. Get Bill #0.4 103/ulNormal0.3-0.8The [facility] HospitalComment on above:Performed By: #### CVDTBH #### [facility] [address] [place] [address] Dr. Get Lockettocytes/100 WBC (Bld)5.0 %Normal1.7-12.0The [facility] Comment on above:Performed By: #### CVDTBH #### [facility] [address] [place] [address] Dr. Get Falcon #3.9 103/ulNormal1.4-6.5The [facility] HospitalComment on above:Performed By: #### CVDTBH #### [facility] [address] [place] [address] Dr. Get Andersonutrophils/100 WBC (Bld)48.9 %Uyvcgv79.0-75.0The [facility] HospitalComment on above:Performed By: #### CVDTBH #### [facility] [address] [place] [address] Dr. Get Hanleylet mean volume (Bld) [Entitic vol]9.5 fLNormal9.5-13.5The [facility] HospitalComment on above:Performed By: #### CVDTBH #### [facility] [address] [address] [address] Get WhittenPLT182 103/ypGbhetg552-504Gyf [facility] HospitalComment on above: Performed By: #### CVDTBH #### [facility] [address] [address] [address] Get WhittenRBC3.39 106/ulCritically low4.70-6.10The [facility] HospitalComment on above:Performed By: #### CVDTBH #### [facility] [address] [address] [address] Get WhittenWBC8.0 103/ulNormal4.0-11.0The [facility] HospitalComment on above: Performed By: #### CVDTBH #### [facility] [address] [address] [address] Get WhittenCT CSPINE WO CONon [id number] CSPINE WO CONEXAMINATION: CT CSPINE WO CON HISTORY: Unspecified fall [...] Electronically authenticated by: SHEN SOSA Date: 2022-11-27 11:26NoRegency Hospital [facility] EastCT STROKE HEAD WOon [id number] STROKE HEAD WOEXAMINATION: CT STROKE HEAD WO HISTORY: Unspecified fall [...] Electronically authenticated by: SHEN SOSA Date: 2022-11-27 11:16NoReg[facility] Hospital [facility] EastCovid-19 PCR (CVDTBH)on 45-21-5343ZZWI-CoV-2 (COVID-19) RNA ASHLEE+probe Ql (Unsp spec)Not detectedNormalNOT DETECTEDKettering Memorial Hospital Comment on above:Result Comment: THIS TEST IS NOT APPROVED BY THE FDA. IT HAS BEEN AUTHORIZED FOR USE UNDER AN EMERGENCY USE AUTHORIZATION.Performed By: #### CMP #### [facility] [address] [address] [address] Get MercadoANOL (BLD ALC)on 15-60-9162YNF NOTENOTE: 80 mg/dl is the legal limit for a blood alcohol levelNoRegency Hospital Cleveland EastComment on above: Performed By: #### BNP, T7, CMP, TSH #### [facility] [address] [address] [address] Deutsch ChangEthanol [Mass/Vol]mg/dLNoRegency Hospital [place] EastComment on above:Performed By: #### BNP, T7, CMP, TSH #### [facility] [address] [address] [address] Deutsch ChangMAGNESIUMon 25-48-2430Ywltfazfr [Mass/Vol]2.3 mg/dLNormal1.8-2.[address] [facility] HospitalComment on above:Performed By: #### BNP, T7, CMP, TSH #### [facility] [address] [address] [address] Get Richards 14(COMP METB)on 94-87-4037Psrfqnt [Mass/Vol]4.1 g/dLNormal 3.4-5.0The [facility] HospitalComment on above:Performed By: #### BNP, T7, CMP, TSH #### [facility] [address] [address] [address] Get WhittenAlbumin/Globulin [Mass ratio]1.1 {ratio}NormalThe [facility] HospitalComment on above:Performed By: #### BNP, T7, CMP, TSH #### [facility] [address] [place] [address] Dr. Get Saba [Catalytic activity/Vol]36 U/LCritically ofk80-319Mdy [facility] HospitalComment on above:Performed By: #### BNP, T7, CMP, TSH #### [facility] [address] [place] [address] Dr. Get Pichardo [Catalytic activity/Vol]15 U/LCritically dyy40-81Vsa [facility] HospitalComment on above:Performed By: #### BNP, T7, CMP, TSH #### [facility] [address] [place] [address] Dr. Get Crow gap [Moles/Vol]15.0 mmol/LNormalThe [facility] Comment on above:Performed By: #### BNP, T7, CMP, TSH #### [facility] [address] [place] [address] Dr. Get WhittenAST [Catalytic activity/Vol]13 U/LCritically gat32-23Nwz [facility] Centerment on above:Performed By: #### BNP, T7, CMP, TSH #### [facility] [address] [place] [address] Dr. Get Lainezirubin [Mass/Vol]0.3 mg/dLNormal0.2-1.0The [facility] Comment on above:Performed By: #### BNP, T7, CMP, TSH #### [facility] [address] [address] [address] Get WhittenCalcium [Mass/Vol]9.1 mg/dLNormal8.5-10.1[facility] Comment on above:Performed By: #### BNP, T7, CMP, TSH #### [facility] [address] [address] [address] Get WhittenChloride [Moles/Vol]101 mmol/EVbamcb96-616BsoKettering Memorial Hospital Comment on above:Performed By: #### BNP, T7, CMP, TSH #### [facility] [address] [place] [address] Dr. Get WhittenCO2 [Moles/Vol]22.2 mmol/HYfbllz12.0-32.0[facility] Comment on above:Performed By: #### BNP, T7, CMP, TSH #### [facility] [address] [place] [address] Dr. Get WhittenCreatinine [Mass/Vol]1.84 mg/dLCritically high0.70-1.30The [facility] HospitalComment on above:Performed By: #### BNP, T7, CMP, TSH #### [facility] [address] [place] [address] Dr. Get PaytonGFR-AF UTEKUJQG42 mL/min/1.41p4Ehloznucvd low>=60The [facility] HospitalComment on above:Performed By: #### BNP, T7, CMP, TSH #### [facility] [address] [place] [address] Dr. Get PaytonGFR-NON AF ITAARXJD53 mL/min/1.60g5Hwbttgzert low>=60The [facility] HospitalComment on above:Performed By: #### BNP, T7, CMP, TSH #### [facility] [address] [place] [address] Dr. Get WhittenGlobulin (S) [Mass/Vol]3.6 g/dLNormalThe [facility] HospitalComment on above:Performed By: #### BNP, T7, CMP, TSH #### [facility] [address] [address] [address] Get WhittenGlucose [Mass/Vol]87 mg/gOCcgufw88-701Lwl [facility] Comment on above:Performed By: #### BNP, T7, CMP, TSH #### [facility] [address] [address] [address] Get WhittenPotassium [Moles/Vol]4.2 mmol/LNormal3.5-5.1The [facility] Comment on above:Performed By: #### BNP, T7, CMP, TSH #### [facility] [address] [place] [address] Dr. Get WhittenProtein [Mass/Vol]7.7 g/dLNormal6.4-8.2The [facility] Comment on above:Performed By: #### BNP, T7, CMP, TSH #### [facility] [address] [place] [address] Dr. Get WhittenSodium [Moles/Vol]134 mmol/LCritically xne737-450Opu [facility] HospitalComment on above:Performed By: #### BNP, T7, CMP, TSH #### [facility] [address] [place] [address] Dr. Get WhittenUrea nitrogen [Mass/Vol]14.0 mg/dLNormal7.0-18.0The [facility] HospitalComment on above:Performed By: #### BNP, T7, CMP, TSH #### [facility] [address] [place] [address] Dr. Get De Jesus nitrogen/Creatinine [Mass ratio]7.6 mg/mgNormalThe [facility] HospitalComment on above:Performed By: #### BNP, T7, CMP, TSH #### [facility] [address] [place] [address] Dr. Get WhittenPROTIMErell [id number] Coag (PPP) [Relative time]0.98 {INR} NormalThe [facility] HospitalComment on above:Performed By: #### BNP, T7, CMP, TSH #### [facility] [address] [place] [address] Dr. Get Monteiro [facility]OSPITALE BELOWBlanchard Valley Health SystemComment on above:Result Comment: DESIRED INR: 2.0 - 3.0 CONDITIONS NOT LISTED BELOW 2.5 - 3.5 FOR PROSTHETIC HEART VALVE REPLACEMENT 2.5 - 3.5 RECURRENT THROMBOSIS Performed By: #### BNP, T7, CMP, TSH #### [facility] [address] [place] [address] Dr. Get WhittenPT Coag (PPP) [Time]10.4 sNormal9.0-11.6ThOhioHealth Grady Memorial Hospital Comment on above:Performed By: #### BNP, T7, CMP, TSH #### [facility] [address] [place] [address] Dr. Get Henley [id number] Coag (Bld) [Time]30.4 rVhlhuw76.3-36.2The [facility] HospitalComment on above:Performed By: #### BNP, T7, CMP, TSH #### [facility] [address] [place] [address] Dr. Get ArcherMATIC COVID-19 ANTIGENon [id number] StatementSEE BELOW NormalHighland District Hospital on above:Result Comment: This test has not been FDA [...] declaration is terminated or authorization is revoked sooner.Performed By: #### CMP, HSTROPN, BNP #### [facility] [address] [place] [address] Dr. Get Llanos-CoV-2 (COVID-19) RNA ASHLEE+probe Ql (Unsp spec)NegativeNormal NEGATIVEThe [facility] HospitalComment on above:Performed By: #### CMP, HSTROPN, BNP #### [facility] [address] [place] [address] Dr. Get WhittenT4on [id number] [Mass/Vol]0.90 ug/dLCritically low4.50-12.10The [facility] HospitalComment on above:Performed By: #### BNP, T7, CMP, TSH #### [facility] [address] [place] [address] Dr. Get Charles, HIGH SENSITIVITYon 46-57-8303IABVOT1.1 pg/mLNormal 4.0-76.1The [facility] HospitalComment on above:Result Comment: CUT-OFF POINTS HAVE BEEN ESTABLISHED BASED ON THE FOURTH UNIVERSAL DEFINITIONS OF MYOCARDIAL INFARCTION. THE UPPER REFERENCE LIMIT (URL) OF TROPONIN, DEFINED THE 99TH PERCENTILE OF cTnI DISTRIBUTION IN A REFERENCE POPULATION, HAS BEEN CONFIRMED THE DECISION THRESHOLD FOR AR DIAGNOSIS.Performed By: #### BNP, T7, CMP, TSH #### [facility] [address] [address] [address] Get WhittenTSHoayanna 68-52-9736QRV129.470 uIU/mLCritically high0.358-3.740The [facility] HospitalComment on above:Performed By: #### BNP, T7, CMP, TSH #### [facility] [address] [place] [address] Dr. Get WhittenXR CHEST 1 Von [id number] CHEST 1 VEXAMINATION: XR CHEST 1 V HISTORY: Unspecified fall COMPARISON: XR [...] Electronically authenticated by: SHEN SOSA Date: 2022-11-27 11:19[facility] SystemXR CSPINE MIN 4 VIEWSon [id number] CSPINE MIN 4 VIEWS EXAMINATION: XR CSPINE [...] Electronically authenticated by: SHEN SOSA Date: 2022-10-24 10:22[facility] SystemXR LSPINE MIN 4 VIEWSon 11-34-9215BK LSPINE MIN 4 VIEWS EXAMINATION: XR LSPINE [...] Electronically authenticated by: SHEN SOSA Date: 2022-10-24 10:19[facility] SystemH PYLORI ANTIBODY IGGon 04-16-2022H. PYLORI IGG ABS0.07 Index ValueNormal0.00-0.79[facility] HospitalComment on above:Result Comment: Negative <0.80 Equivocal 0.80 - 0.89 Positive >0.89Performed By: #### BNP, T7, CMP, TSH #### [facility] [address] [place] [address] Dr. Get Dawson 62-76-9180Xybpqaktirx peptide B (Bld) [Mass/Vol]138.0 pg/mL Normal<=900.0The [facility] HospitalComment on above:Performed By: #### BNP, T7, CMP, TSH #### [facility] [address] [place] [address] Dr. Get Meyer AUTO DIFFon 05-17-0132UGUJ #0.0 103/ulNormal0.0-0.1The [facility] HospitalComment on above:Performed By: #### CMP, HSTROPN, BNP #### [facility] [address] [place] [address] Dr. Get Arredondosophils/100 WBC (Bld)0.4 %Normal0.2-2.0The [facility] Comment on above:Performed By: #### CMP, HSTROPN, BNP #### [facility] [address] [place] [address] Dr. Get Babcock #0.0 103/ulNormal0.0-0.7The [facility] HospitalComment on above: Performed By: #### CMP, HSTROPN, BNP #### [facility] [address] [place] [address] Dr. Get Paytonosinophils/100 WBC (Bld)0.3 %Critically low0.9-7.0The [facility] HospitalComment on above:Performed By: #### CMP, HSTROPN, BNP #### [facility] [address] [place] [address] Dr. Get Paytonrythrocyte distribution width (RBC) [Ratio]13.2 %Artysf28.0-15.[address] [facility] HospitalComment on above:Performed By: #### CMP, HSTROPN, BNP #### [facility] [address] [place] [address] Dr. Get WhittenHematocrit (Bld) [Volume fraction]37.9 %Critically low42.0-54.[address] [facility] HospitalComment on above:Performed By: #### CMP, HSTROPN, BNP #### [facility] [address] [place] [address] Dr. Get WhittenHemoglobin (Bld) [Mass/Vol]13.1 g/dLCritically low14.0-18.0The [facility] HospitalComment on above:Performed By: #### CMP, HSTROPN, BNP #### [facility] [address] [place] [address] Dr. Get Sanford #0.24 10e3/ulCritically high0.00-0.03[facility] on above:Performed By: #### CMP, HSTROPN, BNP #### [facility] [address] [place] [address] Dr. Get Sanford %3.1 %Critically high0.0-0.5The [facility] HospitalComment on above:Performed By: #### CMP, HSTROPN, BNP #### [facility] [address] [place] [address] Dr. Get Otoole #3.1 103/ulNormal1.2-3.8The [facility] HospitalComment on above:Performed By: #### CMP, HSTROPN, BNP #### [facility] [address] [place] [address] Dr. Get Ramirezhocytes/100 WBC (Bld)40.3 %Hfizih61.5-60.0The [facility] HospitalComment on above:Performed By: #### CMP, HSTROPN, BNP #### [facility] [facility] [address] [place] [address] Dr. Get HeadUAL DIFF REQNONormalThe [facility] HospitalComment on above: Performed By: #### CMP, HSTROPN, BNP #### [facility] [address] [place] [address] Dr. Get Manley (RBC) [Entitic mass]36.1 pgCritically high25.9-34.0The [facility] HospitalComment on above:Performed By: #### CMP, HSTROPN, BNP #### [facility] [address] [place] [address] Dr. Get Fried (RBC) [Mass/Vol]34.6 g/xYVucbem71.9-35.2The [facility] HospitalComment on above:Performed By: #### CMP, HSTROPN, BNP #### [facility] [address] [place] [address] Dr. Get [facility] [place] ([place]BC) [Entitic vol]104.4 fLCritically high80.0-94.0The [facility] HospitalComment on above:Performed By: #### CMP, HSTROPN, BNP #### [facility] [address] [place] [address] Dr. Get Bill #0.7 103/ulNormal0.3-0.8The [facility] HospitalComment on above:Performed By: #### CMP, HSTROPN, BNP #### [facility] [address] [place] [address] Dr. Get Lockettocytes/100 WBC (Bld)9.4 %Normal1.7-12.0The [facility] Comment on above:Performed By: #### CMP, HSTROPN, BNP #### [facility] [address] [place] [address] Dr. Get Falcon #3.6 103/ulNormal1.4-6.5The [facility] HospitalComment on above:Performed By: #### CMP, HSTROPN, BNP #### [facility] [address] [place] [address] Dr. Get Andersonutrophils/100 WBC (Bld)46.5 %Ujnolo24.0-75.0The [facility] HospitalComment on above:Performed By: #### CMP, HSTROPN, BNP #### [facility] [address] [place] [address] Dr. Get Castro mean volume (Bld) [Entitic vol]8.5 fLCritically low 9.5-13.5The [facility] HospitalComment on above:Performed By: #### CMP, HSTROPN, BNP #### [facility] [address] [place] [address] Dr. Get WhittenPLT128 103/ulCritically ojx236-501Vlt [facility] HospitalComment on above:Performed By: #### CMP, HSTROPN, BNP #### [facility] [address] [place] [address] Dr. Get WhittenRBC3.63 106/ulCritically low4.70-6.10The [facility] HospitalComment on above:Performed By: #### CMP, HSTROPN, BNP #### [facility] [address] [place] [address] Dr. Get WhittenWBC7.7 103/ulNormal4.0-11.0The [facility] HospitalComment on above: Performed By: #### CMP, HSTROPN, BNP #### [facility] [address] [place] [address] Dr. Get Kelley THYROXINE INDEX T7on 93-28-3934EKY4.22Critically low 1.30-4.50The [facility] HospitalComc.[facility] on above:Performed By: #### BNP, T7, CMP, TSH #### [facility] [address] [place] [address] Dr. Get WhittenT3U37.0 %Tbegyd22.0-40.0The [facility] HospitalComment on above: Performed By: #### BNP, T7, CMP, TSH #### [facility] [address] [place] [address] Dr. Get WhittenT4 [Mass/Vol]0.60 ug/dLCritically low4.50-12.10The [facility] HospitalComment on above:Performed By: #### BNP, T7, CMP, TSH #### [facility] [address] [place] [address] Dr. Get Oconnell 43-00-5137Wkol [Mass/Vol]74.0 ug/sSHfefzv07.0-175.0The [facility] HospitalComment on above:Performed By: #### CVDTBH #### [facility] [address] [place] [address] Dr. Get Richards 14(COMP METB)on 33-42-6721Jnjjzvt [Mass/Vol]3.6 g/dLNormal 3.4-5.0The [facility] HospitalComment on above:Performed By: #### BNP, T7, CMP, TSH #### [facility] [address] [place] [address] Dr. Get WhittenAlbumin/Globulin [Mass ratio]1.3 {ratio}NormalThe [facility] HospitalComment on above:Performed By: #### BNP, T7, CMP, TSH #### [facility] [address] [place] [address] Dr. Get Saba [Catalytic activity/Vol]41 U/LCritically cee29-676Xkh [facility] HospitalComment on above:Performed By: #### BNP, T7, CMP, TSH #### [facility] [address] [place] [address] Dr. Get Pichardo [Catalytic activity/Vol]111 U/LCritically iuad39-06Qbl [facility] HospitalComment on above:Performed By: #### BNP, T7, CMP, TSH #### [facility] [address] [place] [address] Dr. Get Crow gap [Moles/Vol]10.3 mmol/LNormalThe [facility] Comment on above:Performed By: #### BNP, T7, CMP, TSH #### [facility] [address] [place] [address] Dr. Get WhittenAST [Catalytic activity/Vol]30 U/VNsvrsa68-03Qrf [facility] HospitalComment on above:Performed By: #### BNP, T7, CMP, TSH #### [facility] [address] [place] [address] Dr. Get WhittenBilirubin [Mass/Vol]0.3 mg/dLNormal0.2-1.0The [facility] Comment on above:Performed By: #### BNP, T7, CMP, TSH #### [facility] [address] [address] [address] Get WhittenCalcium [Mass/Vol]8.1 mg/dLCritically low8.5-10.1The [facility] HospitalComment on above:Performed By: #### BNP, T7, CMP, TSH #### [facility] [address] [place] [address] Dr. Get WhittenChloride [Moles/Vol]98 mmol/JCogyrk96-351Acv [facility] Comment on above:Performed By: #### BNP, T7, CMP, TSH #### [facility] [address] [place] [address] Dr. Get WhittenCO2 [Moles/Vol]24.7 mmol/UNycluc15.0-32.0[facility] Comment on above:Performed By: #### BNP, T7, CMP, TSH #### [facility] [address] [place] [address] Dr. Get WhittenCreatinine [Mass/Vol]1.24 mg/dLNormal0.70-1.30The [facility] HospitalComment on above:Performed By: #### BNP, T7, CMP, TSH #### [facility] [address] [place] [address] Dr. Get PaytonGFR-AF NICARAGUAN>60Normal>=60The [facility] HospitalComment on above:Performed By: #### BNP, T7, CMP, TSH #### [facility] [address] [place] [address] Dr. Get PaytonGFR-NON AF NICARAGUAN=60Normal>=60The [facility] HospitalComment on above:Performed By: #### BNP, T7, CMP, TSH #### [facility] [address] [place] [address] Dr. Get WhittenGlobulin (S) [Mass/Vol]2.7 g/dLNormalThe [facility] HospitalComment on above:Performed By: #### BNP, T7, CMP, TSH #### [facility] [address] [address] [address] Get WhittenGlucose [Mass/Vol]107 mg/dLCritically kvnc06-545Xaz [facility] HospitalComment on above:Performed By: #### BNP, T7, CMP, TSH #### [facility] [address] [place] [address] Dr. Get WhittenPotassium [Moles/Vol]4.0 mmol/LNormal3.5-5.1The [facility] Comment on above:Performed By: #### BNP, T7, CMP, TSH #### [facility] [address] [place] [address] Dr. Get WhittenProtein [Mass/Vol]6.3 g/dLCritically low6.4-8.2The [facility] HospitalComment on above:Performed By: #### BNP, T7, CMP, TSH #### [facility] [address] [place] [address] Dr. Get WhittenSodium [Moles/Vol]129 mmol/LCritically dgm871-993Yoc [facility] HospitalComment on above:Performed By: #### BNP, T7, CMP, TSH #### [facility] [address] [place] [address] Dr. Get WhittenUrea nitrogen [Mass/Vol]12.0 mg/dLNormal7.0-18.0The [facility] Centerment on above:Performed By: #### BNP, T7, CMP, TSH #### [facility] [address] [place] [address] Dr. Get De Jesus nitrogen/Creatinine [Mass ratio]9.7 mg/mgNormalThe [facility] HospitalComment on above:Performed By: #### BNP, T7, CMP, TSH #### [facility] [address] [place] [address] Dr. Get Hidalgo 81-68-0998FYQ63.327 uIU/mLCritically high0.358-3.740The [facility] HospitalComment on above:Performed By: #### BNP, T7, CMP, TSH #### [facility] [address] [place] [address] Dr. Get Dawson 99-00-3376Mtfheibzdae peptide B (Bld) [Mass/Vol]349.0 pg/mL Normal<=900.0The [facility] HospitalComment on above:Performed By: #### BNP, T7, CMP, TSH #### [facility] [address] [place] [address] Dr. Get Meyer W MANUAL DIFFon [id number] LYMPH #0.26 103/ulNormal The [facility] HospitalComment on above:Performed By: #### CMP #### [facility] [address] [place] [address] Dr. Get ChiangICAL LYMPH %2 %NormalKettering Memorial HospitalComment on above: Performed By: #### CMP #### [facility] [address] [place] [address] Dr. Get Day #0.0 103/ulNormal0.0-0.3The [facility] HospitalComment on above:Performed By: #### CMP #### [facility] [address] [place] [address] Dr. Get Day %0 %Normal0-5The [facility] HospitalComment on above:Performed By: #### CMP #### [facility] [address] [place] [address] Dr. Get Aceves #0.00 103/ulNormal0.00-0.10The [facility] HospitalComment on above:Performed By: #### CMP #### [facility] [address] [place] [address] Dr. Get Aceves %0.0 %Critically low0.2-2.0The [facility] HospitalComment on above:Performed By: #### CMP #### [facility] [address] [place] [address] Dr. Get Wing #NormalThe [facility] HospitalComment on above:Performed By: #### CMP #### [facility] [address] [place] [address] Dr. Get Wing %NormalThe [facility] HospitalComment on above:Performed By: #### CMP #### [facility] [address] [address] [address] Get WhittenCORRECTED WBCNormal4.0-11.0The [facility] HospitalComc.[facility] on above: Performed By: #### CMP #### [facility] [address] [address] [address] Get Kendrick #0.00 103/ulNormal0.00-0.70The [facility] HospitalComment on above:Performed By: #### CMP #### [facility] [address] [address] [address] Get Kendrick%0.0 %Critically low0.9-7.0The [facility]Comc[facility] on above:Performed By: #### CMP #### [facility] [address] [place] [address] Dr. Get WhittenHCT38.3 %Critically low42.0-54.0The [facility] HospitalComc.[facility] on above:Performed By: #### CMP #### [facility] [address] [place] [address] Dr. Get WhittenHGB13.7 g/dlCritically low14.0-18.0The [facility] on above:Performed By: #### CMP #### [facility] [address] [place] [address] Dr. Get Villarreal #1.43 103/ulNormal1.20-3.80The [facility] HospitalComc.[facility] on above:Performed By: #### CMP #### [facility] [address] [place] [address] Dr. Get Villarreal%11.0 %Critically low20.5-60.0The [facility]Com[facility] on above:Performed By: #### CMP #### [facility] [address] [place] [address] Dr. Get WhittenMCH36.3 pgCritically high25.9-34.0The [facility] HospitalComment on above:Performed By: #### CMP #### [facility] [address] [place] [address] Dr. Get FriedHC35.8 g/dlCritically high29.9-35.2The [facility] HospitalComment on above:Performed By: #### CMP #### [facility] [address] [place] [address] Dr. Get FriedV101.6 fLCritically high80.0-94.0The [facility] HospitalComment on above:Performed By: #### CMP #### [facility] [address] [place] [address] Dr. Get SalinasOCYTE #NormalThe [facility] HospitalComment on above: Performed By: #### CMP #### [facility] [address] [place] [address] Dr. Get SalinasOCYTE %NormalThe [facility] HospitalComment on above: Performed By: #### CMP #### [facility] [address] [place] [address] Dr. Get Leyva#0.78 103/ulNormal0.30-0.80The [facility] HospitalComment on above:Performed By: #### CMP #### [facility] [address] [place] [address] Dr. Get Leyva%6.0 %Normal1.7-12.0The [facility] HospitalComment on above: Performed By: #### CMP #### [facility] [address] [place] [address] Dr. Get RivasV8.7 fLCritically low9.5-13.5The [facility] HospitalComment on above:Performed By: #### CMP #### [facility] [address] [place] [address] Dr. Get Kasper #NormalThe [facility] HospitalComment on above:Performed By: #### CMP #### [facility] [address] [place] [address] Dr. Get Kasper %NormalThe [facility] HospitalComment on above:Performed By: #### CMP #### [facility] [address] [place] [address] Dr. Get PetitrmalThe [facility] HospitalComment on above:Performed By: #### CMP #### [facility] [address] [address] [address] Get WhittenPLT225 103/xrKqcvzc380-416Ovl [facility] Centerment on above: Performed By: #### CMP #### [facility] [address] [address] [address] Get WhittenRBC3.77 106/ulCritically low4.70-6.10The [facility] HospitalComment on above:Performed By: #### CMP #### [facility] [address] [address] [address] Get WhittenRDW12.7 %Kdblpj27.0-15.0The [facility] HospitalComment on above: Performed By: #### CMP #### [facility] [address] [place] [address] Dr. Get Kimble #10.53 103/ulCritically high1.40-6.50The [facility] Comment on above:Performed By: #### CMP #### [facility] [address] [address] [address] Get Kimble %81.0 %Critically high43.0-75.0The [facility] HospitalComment on above:Performed By: #### CMP #### [facility] [address] [place] [address] Dr. Get ShepherdBC13.0 103/ulCritically high4.0-11.0The [facility] HospitalComment on above:Performed By: #### CMP #### [facility] [address] [address] [address] Get Cintron 76-90-1689SDQ [Mass/Vol]mg/LNormal<=1.0The [facility] Centerment on above:Performed By: #### BNP, T7, CMP, TSH #### [facility] [address] [address] [address] Get Richards 14(COMP METB)on 37-69-3873Gzdlvku [Mass/Vol]3.3 g/dL Critically low3.4-5.0The [facility] HospitalComment on above:Performed By: #### BNP, T7, CMP, TSH #### [facility] [address] [place] [address] Dr. Get WhittenAlbumin/Globulin [Mass ratio]1.2 {ratio}NormalThe [facility] HospitalComment on above:Performed By: #### BNP, T7, CMP, TSH #### [facility] [address] [place] [address] Dr. Get MartinezP [Catalytic activity/Vol]48 U/CKevoti82-984Xau [facility] HospitalComment on above:Performed By: #### BNP, T7, CMP, TSH #### [facility] [address] [place] [address] Dr. Get Pichardo [Catalytic activity/Vol]130 U/LCritically wgxt10-26Imh [facility] HospitalComment on above:Performed By: #### BNP, T7, CMP, TSH #### [facility] [address] [place] [address] Dr. Get Crow gap [Moles/Vol]11.9 mmol/LNormalThe [facility] Comment on above:Performed By: #### BNP, T7, CMP, TSH #### [facility] [address] [place] [address] Dr. Get WhittenAST [Catalytic activity/Vol]50 U/LCritically lbzd22-72Xwh [facility] HospitalComment on above:Performed By: #### BNP, T7, CMP, TSH #### [facility] [address] [place] [address] Dr. Get WhittenBilirubin [Mass/Vol]0.5 mg/dLNormal0.2-1.0The [facility] Comment on above:Performed By: #### BNP, T7, CMP, TSH #### [facility] [address] [place] [address] Dr. Get WhittenCalcium [Mass/Vol]7.9 mg/dLCritically low8.5-10.1The [facility] HospitalComment on above:Performed By: #### BNP, T7, CMP, TSH #### [facility] [address] [address] [address] Get WhittenChloride [Moles/Vol]99 mmol/UMjucjt00-246Hwk [facility] Comment on above:Performed By: #### BNP, T7, CMP, TSH #### [facility] [address] [address] [address] Get WhittenCO2 [Moles/Vol]18.4 mmol/LCritically low21.0-32.0The [facility] HospitalComment on above:Performed By: #### BNP, T7, CMP, TSH #### [facility] [address] [place] [address] Dr. Get WhittenCreatinine [Mass/Vol]0.96 mg/dLNormal0.70-1.30The [facility] Centerment on above:Performed By: #### BNP, T7, CMP, TSH #### [facility] [address] [place] [address] Dr. Get PaytonGFR-AF NICARAGUAN>60Normal>=60The [facility] HospitalComment on above:Performed By: #### BNP, T7, CMP, TSH #### [facility] [address] [place] [address] Dr. Get Mcdowell-NON AF NICARAGUAN>60Normal>=60The [facility] Centerment on above:Performed By: #### BNP, T7, CMP, TSH #### [facility] [address] [address] [address] Get WhittenGlobulin (S) [Mass/Vol]2.8 g/dLNormalThe [facility] HospitalComment on above:Performed By: #### BNP, T7, CMP, TSH #### [facility] [address] [place] [address] Dr. Get WhittenGlucose [Mass/Vol]166 mg/dLCritically hijo66-671Rsy [facility] Centerment on above:Performed By: #### BNP, T7, CMP, TSH #### [facility] [address] [place] [address] Dr. Get WhittenPotassium [Moles/Vol]3.3 mmol/LCritically low3.5-5.1The [facility] HospitalComment on above:Performed By: #### BNP, T7, CMP, TSH #### [facility] [address] [place] [address] Dr. Get WhittenProtein [Mass/Vol]6.1 g/dLCritically low6.4-8.2The [facility] HospitalComment on above:Performed By: #### BNP, T7, CMP, TSH #### [facility] [address] [place] [address] Dr. Get WhittenSodium [Moles/Vol]126 mmol/LCritically wzk367-147Uzz [facility]Comc.[facility] on above:Performed By: #### BNP, T7, CMP, TSH #### [facility] [address] [place] [address] Dr. Get WhittenUrea nitrogen [Mass/Vol]8.0 mg/dLNormal7.0-18.0The [facility] HospitalComment on above:Performed By: #### BNP, T7, CMP, TSH #### [facility] [address] [place] [address] Dr. Get De Jesus nitrogen/Creatinine [Mass ratio]8.3 mg/mgNormalThe [facility] HospitalComc.[facility] on above:Performed By: #### BNP, T7, CMP, TSH #### [facility] [address] [place] [address] Dr. Get Dawson 78-41-6764Zitkeiexwei peptide B (Bld) [Mass/Vol]274.0 pg/mL Normal<=900.0The [facility] Centerment on above:Performed By: #### CMP, HSTROPN, BNP #### [facility] [address] [place] [address] Dr. Get Crockett ANA 3-6on 56-92-1860CR [Catalytic activity/Vol]48 U/L Cqdmyr39-705Hmj [facility] HospitalComment on above:Performed By: #### BNP, T7, CMP, TSH #### [facility] [address] [place] [address] Dr. Get Melara.MB [Mass/Vol]1.62 ng/mLNormal<=3.60The [facility] Comment on above:Performed By: #### BNP, T7, CMP, TSH #### [facility] [address] [place] [address] Dr. Get WhittenHSTROP15.7 pg/mLNormal4.0-76.1[facility] HospitalComment on above:Result Comment: CUT-OFF POINTS HAVE BEEN ESTABLISHED BASED ON THE FOURTH UNIVERSAL DEFINITIONS OF MYOCARDIAL INFARCTION. THE UPPER REFERENCE LIMIT (URL) OF TROPONIN, DEFINED THE 99TH PERCENTILE OF cTnI DISTRIBUTION IN A REFERENCE POPULATION, HAS BEEN CONFIRMED THE DECISION THRESHOLD FOR AR DIAGNOSIS.Performed By: #### BNP, T7, CMP, TSH #### [facility] [address] [place] [address] Dr. Get Meyer AUTO DIFFon [id number] #0.1 103/ulNormal0.0-0.1The [facility] HospitalComment on above:Performed By: #### CMP #### [facility] [address] [place] [address] Dr. Get WhittenBasophils/100 WBC (Bld)0.8 %Normal0.2-2.0[facility] Comment on above:Performed By: #### CMP #### [facility] [address] [place] [address] Dr. Get Babcock #0.6 103/ulNormal0.0-0.7The [facility] HospitalComment on above: Performed By: #### CMP #### [facility] [address] [place] [address] Dr. Get Paytonosinophils/100 WBC (Bld)5.2 %Normal0.9-7.0The [facility] Comment on above:Performed By: #### CMP #### [facility] [address] [place] [address] Dr. Get Paytonrythrocyte distribution width (RBC) [Ratio]12.7 %Ggiwur87.0-15.0 [facility] HospitalComment on above:Performed By: #### CMP #### [facility] [address] [address] [address] Get WhittenHematocrit (Bld) [Volume fraction]41.7 %Critically low42.0-54.[address] [facility] HospitalComment on above:Performed By: #### CMP #### [facility] [address] [place] [address] Dr. Get WhittenHemoglobin (Bld) [Mass/Vol]14.9 g/iGPgmuzn71.0-18.0The [facility] HospitalComment on above:Performed By: #### CMP #### [facility] [address] [place] [address] Dr. Get Sanford #0.48 10e3/ulCritically high0.00-0.03The [facility] Comment on above:Performed By: #### CMP #### [facility] [address] [place] [address] Dr. Get WhittenIG %4.1 %Critically high0.0-0.5The [facility] HospitalComment on above:Performed By: #### CMP #### [facility] [address] [place] [address] Dr. Get Otoole #1.4 103/ulNormal1.2-3.8The [facility] HospitalComment on above:Performed By: #### CMP #### [facility] [address] [place] [address] Dr. Get Hargrovemphocytes/100 WBC (Bld)11.9 %Critically low20.5-60.0The [facility] HospitalComment on above:Performed By: #### CMP #### [facility] [address] [place] [address] Dr. Get HeadUAL DIFF REQNONormalThe [facility] HospitalComment on above: Performed By: #### CMP #### [facility] [address] [place] [address] Dr. Get Manley (RBC) [Entitic mass]36.8 pgCritically high25.9-34.0The [facility] HospitalComment on above:Performed By: #### CMP #### [facility] [address] [address] [address] Get FriedHC (RBC) [Mass/Vol]35.7 g/dLCritically high29.9-35.2The [facility] HospitalComment on above:Performed By: #### CMP #### [facility] [address] [address] [address] Get FriedV (RBC) [Entitic vol]103.0 fLCritically high80.0-94.0The [facility] HospitalComment on above:Performed By: #### CMP #### [facility] [address] [place] [address] Dr. Get Bill #0.5 103/ulNormal0.3-0.8The [facility] HospitalComment on above:Performed By: #### CMP #### [facility] [address] [place] [address] Dr. Get Lockettocytes/100 WBC (Bld)4.3 %Normal1.7-12.0The [facility] Comment on above:Performed By: #### CMP #### [facility] [address] [place] [address] Dr. Get Falcon #8.6 103/ulCritically high1.4-6.5The [facility] Comment on above:Performed By: #### CMP #### [facility] [address] [place] [address] Dr. Get Andersonutrophils/100 WBC (Bld)73.7 %Vlrfov89.0-75.0The [facility] HospitalComment on above:Performed By: #### CMP #### [facility] [address] [place] [address] Dr. Get Hanleylet mean volume (Bld) [Entitic vol]9.0 fLCritically low 9.5-13.5The [facility] HospitalComment on above:Performed By: #### CMP #### [facility] [address] [place] [address] Dr. Get WhittenPLT244 103/dvXxrcmz395-523Xht [facility] HospitalComment on above: Performed By: #### CMP #### [facility] [address] [address] [address] Get WhittenRBC4.05 106/ulCritically low4.70-6.10The [facility] HospitalComment on above:Performed By: #### CMP #### [facility] [address] [place] [address] Dr. Get WhittenWBC11.7 103/ulCritically high4.0-11.0The [facility] HospitalComment on above:Performed By: #### CMP #### [facility] [address] [place] [address] Dr. Get Cintron 43-54-1939WMW3.3 mg/dLNormal<=1.0The [facility] Comment on above:Performed By: #### CMP, HSTROPN, BNP #### [facility] [address] [place] [address] Dr. Get Crocker SPUTUMon 92-57-9721CYWNEFA SPUTUMCulture Observations: METHICILLIN RESISTANT STAPH AUREUS ISOLATED. PLEASE FOLLOW APPROPRIATE ISOLATION PROCEDURES. Culture Observations: Gave MRSA result to Diana Matos RN on 03/30 @ 0851 Culture Observations: Growth of mold-like organism, sending [...] >=16 R F Rifampicin <=0.5 S F Trimethoprim/Sulfamethoxazole <=10 S F Oxacillin >=[address] [facility] HospitalComment on above:Performed By: #### BNP, T7, CMP, TSH #### [facility] [address] [place] [address] Dr. Get Macias LIMITED STUDYon [id number] LIMITED STUDYPatient: REHAN TREJO Exam Date: 03/30/2022 : 1965 Gender:M Ordering : DR PEE LAKHANI . Admission #: [id number] Family : Order #: [id number] CLICK HERE TO VIEW EXAM ECHOCARDIOGRAM REPORT [...] by: Arik Dominguez M.D. on 03/31/2022 at 19:42[facility] 14(COMP METB)on 30-34-5277Mnmrana [Mass/Vol]3.5 g/dLNormal3.4-5.[address] [facility] HospitalComment on above:Performed By: #### CMP, HSTROPN, BNP #### [facility] [address] [place] [address] Dr. Get WhittenAlbumin/Globulin [Mass ratio]1.2 {ratio}NormalThe [facility] HospitalComment on above:Performed By: #### CMP, HSTROPN, BNP #### [facility] [address] [place] [address] Dr. Get MartinezP [Catalytic activity/Vol]58 U/LVvcgyz02-765Hnm [facility] HospitalComment on above:Performed By: #### CMP, HSTROPN, BNP #### [facility] [address] [place] [address] Dr. Get Pichardo [Catalytic activity/Vol]108 U/LCritically vzbb70-07Zhj [facility] HospitalComment on above:Performed By: #### CMP, HSTROPN, BNP #### [facility] [address] [place] [address] Dr. Get rCow gap [Moles/Vol]12.6 mmol/LNormalThe [facility] Comment on above:Performed By: #### CMP, HSTROPN, BNP #### [facility] [address] [place] [address] Dr. Get Fierro [Catalytic activity/Vol]33 U/RJznfel05-03Xsk [facility] Centerment on above:Performed By: #### CMP, HSTROPN, BNP #### [facility] [address] [place] [address] Dr. Get hWittenBilirubin [Mass/Vol]0.6 mg/dLNormal0.2-1.0The [facility] Comment on above:Performed By: #### CMP, HSTROPN, BNP #### [facility] [address] [place] [address] Dr. Get WhittenCalcium [Mass/Vol]8.0 mg/dLCritically low8.5-10.1The [facility] HospitalComment on above:Performed By: #### CMP, HSTROPN, BNP #### [facility] [address] [address] [address] Get WhittenChloride [Moles/Vol]99 mmol/XBbyprj89-856Wil [facility] Comment on above:Performed By: #### CMP, HSTROPN, BNP #### [facility] [address] [address] [address] Get WhittenCO2 [Moles/Vol]22.0 mmol/IDwugxl80.0-32.0The [facility] Comment on above:Performed By: #### CMP, HSTROPN, BNP #### [facility] [address] [place] [address] Dr. Get WhittenCreatinine [Mass/Vol]1.12 mg/dLNormal0.70-1.30[facility] HospitalComment on above:Performed By: #### CMP, HSTROPN, BNP #### [facility] [address] [place] [address] Dr. Get PaytonGFR-AF NICARAGUAN>60Normal>=60The [facility] HospitalComment on above:Performed By: #### CMP, HSTROPN, BNP #### [facility] [address] [place] [address] Dr. Get Mcdowell-NON AF NICARAGUAN>60Normal>=60The [facility] HospitalComment on above:Performed By: #### CMP, HSTROPN, BNP #### [facility] [address] [place] [address] Dr. Get WhittenGlobulin (S) [Mass/Vol]3.0 g/dLNormalThe [facility] HospitalComment on above:Performed By: #### CMP, HSTROPN, BNP #### [facility] [address] [place] [address] Dr. Get WhittenGlucose [Mass/Vol]135 mg/dLCritically ylbs54-758Zjq [facility] Centerment on above:Performed By: #### CMP, HSTROPN, BNP #### [facility] [address] [place] [address] Dr. Get WhittenPotassium [Moles/Vol]3.6 mmol/LNormal3.5-5.1The [facility] Comment on above:Performed By: #### CMP, HSTROPN, BNP #### [facility] [address] [place] [address] Dr. Get WhittenProtein [Mass/Vol]6.5 g/dLNormal6.4-8.2The [facility] Comment on above:Performed By: #### CMP, HSTROPN, BNP #### [facility] [address] [place] [address] Dr. Get WhittenSodium [Moles/Vol]130 mmol/LCritically vgx215-640Amc [facility] HospitalComment on above:Performed By: #### CMP, HSTROPN, BNP #### [facility] [address] [place] [address] Dr. Get WhittenUrea nitrogen [Mass/Vol]7.0 mg/dLNormal7.0-18.0The [facility] HospitalComment on above:Performed By: #### CMP, HSTROPN, BNP #### [facility] [address] [place] [address] Dr. Get De Jesus nitrogen/Creatinine [Mass ratio]6.2 mg/mgNormalThe [facility] HospitalComment on above:Performed By: #### CMP, HSTROPN, BNP #### [facility] [address] [place] [address] Dr. Get Crockett ANA 3-6on [id number] [Catalytic activity/Vol]51 U/L Iqrfri97-299Wns [facility] HospitalComment on above:Performed By: #### CVDTBH #### [facility] [address] [place] [address] Dr. Get Melara.MB [Mass/Vol]1.89 ng/mLNormal<=3.60The [facility] Comment on above:Performed By: #### CVDTBH #### [facility] [address] [place] [address] Dr. Get WhittenHSTROP14.4 pg/mLNormal4.0-76.1The [facility] on above:Result Comment: CUT-OFF POINTS HAVE BEEN ESTABLISHED BASED ON THE FOURTH UNIVERSAL DEFINITIONS OF MYOCARDIAL INFARCTION. THE UPPER REFERENCE LIMIT (URL) OF TROPONIN, DEFINED THE 99TH PERCENTILE OF cTnI DISTRIBUTION IN A REFERENCE POPULATION, HAS BEEN CONFIRMED THE DECISION THRESHOLD FOR AR DIAGNOSIS.Performed By: #### CVDTBH #### [facility] [address] [place] [address] Dr. Get Crockett ANA ADMITon [id number] [Catalytic activity/Vol]128 U/L Mdaplz34-443Jvw [facility] HospitalComment on above:Performed By: #### CMP, HSTROPN, BNP #### [facility] [address] [place] [address] Dr. Get Melara.MB [Mass/Vol]2.22 ng/mLNormal<=3.60[facility] Comment on above:Performed By: #### CMP, HSTROPN, BNP #### [facility] [address] [place] [address] Dr. Get WhittenHSTROP11.2 pg/mLNormal4.0-76.1[facility] on above:Result Comment: CUT-OFF POINTS HAVE BEEN ESTABLISHED BASED ON THE FOURTH UNIVERSAL DEFINITIONS OF MYOCARDIAL INFARCTION. THE UPPER REFERENCE LIMIT (URL) OF TROPONIN, DEFINED THE 99TH PERCENTILE OF cTnI DISTRIBUTION IN A REFERENCE POPULATION, HAS BEEN CONFIRMED THE DECISION THRESHOLD FOR AR DIAGNOSIS.Performed By: #### CMP, HSTROPN, BNP #### [facility] [address] [place] [address] Dr. Get SinghO40 ng/wKIfihkt54-95Tpx [facility] HospitalComment on above: Performed By: #### CMP, HSTROPN, BNP #### [facility] [address] [place] [address] Dr. Get Meyer AUTO DIFFon [id number] #0.1 103/ulNormal0.0-0.1The [facility] HospitalComment on above:Performed By: #### OSMOU #### [facility] [address] [place] [address] Dr. Get WhittenBasophils/100 WBC (Bld)0.4 %Normal0.2-2.0The [facility] Comment on above:Performed By: #### OSMOU #### [facility] [address] [place] [address] Dr. Get Babcock #0.0 103/ulNormal0.0-0.7The [facility] HospitalComment on above: Performed By: #### OSMOU #### [facility] [address] [place] [address] Dr. Get Paytonosinophils/100 WBC (Bld)0.1 %Critically low0.9-7.0The [facility] HospitalComment on above:Performed By: #### OSMOU #### [facility] [address] [place] [address] Dr. Get Paytonrythrocyte distribution width (RBC) [Ratio]12.8 %Dajdho68.0-15.[address] [facility] HospitalComment on above:Performed By: #### OSMOU #### [facility] [address] [place] [address] Dr. Get WhittenHematocrit (Bld) [Volume fraction]42.1 %Pvftfu29.0-54.0The [facility] HospitalComment on above:Performed By: #### OSMOU #### [facility] [address] [place] [address] Dr. Get WhittenHemoglobin (Bld) [Mass/Vol]15.3 g/pREbkelu73.0-18.0The [facility] HospitalComment on above:Performed By: #### OSMOU #### [facility] [address] [place] [address] Dr. Get Sanford #0.49 10e3/ulCritically high0.00-0.03The [facility] Comment on above:Performed By: #### OSMOU #### [facility] [address] [place] [address] Dr. Get Sanford %3.6 %Critically high0.0-0.5The [facility] HospitalComment on above:Performed By: #### OSMOU #### [facility] [address] [address] [address] Get Otoole #2.2 103/ulNormal1.2-3.8The [facility] HospitalComment on above:Performed By: #### OSMOU #### [facility] [address] [place] [address] Dr. Get Ramirezhocytes/100 WBC (Bld)16.1 %Critically low20.5-60.0The [facility] HospitalComment on above:Performed By: #### OSMOU #### [facility] [address] [place] [address] Dr. Get Ace DIFF REQNONormalThe [facility] HospitalComment on above: Performed By: #### OSMOU #### [facility] [address] [place] [address] Dr. Get Fried (RBC) [Entitic mass]36.3 pgCritically high25.9-34.0The [facility] HospitalComment on above:Performed By: #### OSMOU #### [facility] [address] [place] [address] Dr. Get Fried (RBC) [Mass/Vol]36.3 g/dLCritically high29.9-35.2The [facility] HospitalComment on above:Performed By: #### OSMOU #### [facility] [address] [place] [address] Dr. Get Fried (RBC) [Entitic vol]100.0 fLCritically high80.0-94.0The [facility] HospitalComment on above:Performed By: #### OSMOU #### [facility] [address] [place] [address] Dr. Get Bill #1.1 103/ulCritically high0.3-0.8The [facility] Comment on above:Performed By: #### OSMOU #### [facility] [address] [place] [address] Dr. Get Lockettocytes/100 WBC (Bld)8.3 %Normal1.7-12.0The [facility] Comment on above:Performed By: #### OSMOU #### [facility] [address] [place] [address] Dr. Get Falcon #9.6 103/ulCritically high1.4-6.5The [facility] Comment on above:Performed By: #### OSMOU #### [facility] [address] [place] [address] Dr. Get Andersonutrophils/100 WBC (Bld)71.5 %Ygbqsl23.0-75.0The [facility] HospitalComment on above:Performed By: #### OSMOU #### [facility] [address] [place] [address] Dr. Get Hanleylet mean volume (Bld) [Entitic vol]9.1 fLCritically low 9.5-13.5The [facility] HospitalComment on above:Performed By: #### OSMOU #### [facility] [address] [place] [address] Dr. Get WhittenPLT228 103/pqPvwfbt681-021Rse [facility]Comment on above: Performed By: #### OSMOU #### [facility] [address] [place] [address] Dr. Get WhittenRBC4.21 106/ulCritically low4.70-6.10The [facility] HospitalComment on above:Performed By: #### OSMOU #### [facility] [address] [place] [address] Dr. Get WhittenWBC13.4 103/ulCritically high4.0-11.0[facility] HospitalComment on above:Performed By: #### OSMOU #### [facility] [address] [place] [address] Dr. Get Bolañosvibaljeet-19 PCR (CVDTBH)on 75-10-6856GFOQ-CoV-2 (COVID-19) RNA ASHLEE+probe Ql (Unsp spec)DetectedCritically abnormalNOT DETECTEDThe [facility] HospitalComment on above:Result Comment: This test is not yet approved or cleared by the [place] FDA. When there are no FDA-approved or cleared tests available, and other criteria are met, FDA can make tests available under an emergency access mechanism called an Emergency Use Authorization (EUA). The EUA for this test is supported by the [place] of Health and Human Service's declaration that circumstances exist to justify the emergency use of in vitro diagnostics for the detection and/or diagnosis of the virusthat causes COVID-19. This EUA will remain in effect for the duration of the COVID-19 declaration ju stifying emergency of IVDs, unless it is terminated or revoked by the FDA (after which the test mayno longer be used).Performed By: #### CVDTBH #### [facility] [address] [place] [address] Dr. Get WhittenOSMOLALITYon 00-04-7546Jlhvqbbdlb [Osmolality]257 mosm/kg Critically xhi827-073Icd [facility] HospitalComment on above:Performed By: #### CVDTBH #### [facility] [address] [place] [address] Dr. Get WhittenOSMOLALITY URINEon 51-04-8764Rtfholcvsb, Jvhvf240 mOsmol/kgNormal The [facility] HospitalComment on above:Result Comment: 24 hr : 300 - 900 Random: 50 - 1400 After 12hr fluid restriction: >850Performed By: #### OSMOU #### [facility] [address] [place] [address] Dr. Get WhittenPROF CHEM 8 (BAS METB)on 42-91-0193Vayyb gap [Moles/Vol]17.1 mmol/LNormalThe [facility] HospitalComment on above:Performed By: #### CMP, HSTROPN, BNP #### [facility] [address] [place] [address] Dr. Get WhittenCalcium [Mass/Vol]8.4 mg/dLCritically low8.5-10.1The [facility] HospitalComment on above:Performed By: #### CMP, HSTROPN, BNP #### [facility] [address] [place] [address] Dr. Get WhittenChloride [Moles/Vol]98 mmol/MRqgjon11-431[facility] Comment on above:Performed By: #### CMP, HSTROPN, BNP #### [facility] [address] [place] [address] Dr. Get WhittenCO2 [Moles/Vol]18.1 mmol/LCritically low21.0-32.0The [facility] HospitalComment on above:Performed By: #### CMP, HSTROPN, BNP #### [facility] [address] [place] [address] Dr. Get WhittenCreatinine [Mass/Vol]0.98 mg/dLNormal0.70-1.30The [facility] HospitalComment on above:Performed By: #### CMP, HSTROPN, BNP #### [facility] [address] [place] [address] Dr. Get PaytonGFR-AF NICARAGUAN>60Normal>=60The [facility] HospitalComment on above:Performed By: #### CMP, HSTROPN, BNP #### [facility] [address] [place] [address] Dr. Get PaytonGFR-NON AF NICARAGUAN>60Normal>=60The [facility] HospitalComment on above:Performed By: #### CMP, HSTROPN, BNP #### [facility] [address] [place] [address] Dr. Get WhittenGlucose [Mass/Vol]94 mg/tQYigxog09-647RovKettering Memorial Hospital Comment on above:Performed By: #### CMP, HSTROPN, BNP #### [facility] [address] [place] [address] Dr. Get WhittenPotassium [Moles/Vol]4.2 mmol/LNormal3.5-5.1[facility] Comment on above:Performed By: #### CMP, HSTROPN, BNP #### [facility] [address] [place] [address] Dr. Get WhittenSodium [Moles/Vol]129 mmol/LCritically amx337-788Mzl [facility] HospitalComment on above:Performed By: #### CMP, HSTROPN, BNP #### [facility] [address] [place] [address] Dr. Get De Jesus nitrogen [Mass/Vol]8.0 mg/dLNormal7.0-18.0The [facility] on above:Performed By: #### CMP, HSTROPN, BNP #### [facility] [address] [place] [address] Dr. Get WhittenUrea nitrogen/Creatinine [Mass ratio]8.2 mg/mgNoRegency Hospital Cleveland EastComc.[facility] on above:Performed By: #### CMP, HSTROPN, BNP #### [facility] [address] [place] [address] Dr. Get WhittenXR CHEST 1 Von [id number] CHEST 1 VEXAM: XR CHEST 1 V at 1801 hours HISTORY: SHORTNESS OF BREATH COMPARISON: [...] Electronically authenticated by: GARETH ROMERO Date: 2022-03-29 18:30[facility] SystemBNPon 66-20-3788Ozsyarirunr peptide B (Bld) [Mass/Vol]401.0 pg/mLNormal<=900.0The [facility] on above:Performed By: #### BNP, T7, CMP, TSH #### [facility] [address] [place] [address] Dr. Get Meyer W MANUAL DIFFon [id number] LYMPH #NormalThe [facility] on above:Performed By: #### BNP, T7, CMP, TSH #### [facility] [address] [place] [address] Dr. Get WhittenATYPICAL LYMPH %NormalThe [facility] on above: Performed By: #### BNP, T7, CMP, TSH #### [facility] [address] [place] [address] Dr. Get Day #0.3 103/ulNormal0.0-0.3The [facility] on above:Performed By: #### BNP, T7, CMP, TSH #### [facility] [address] [place] [address] Dr. Get Day %2 %Normal0-5The [facility] on above:Performed By: #### BNP, T7, CMP, TSH #### [facility] [address] [place] [address] Dr. Get Aceves #0.00 103/ulNormal0.00-0.10The [facility] on above:Performed By: #### BNP, T7, CMP, TSH #### [facility] [address] [place] [address] Dr. Get Aceves %0.0 %Critically low0.2-2.0The [facility] on above:Performed By: #### BNP, T7, CMP, TSH #### [facility] [address] [place] [address] Dr. Get Wing #NormalKettering Memorial HospitalComment on above:Performed By: #### BNP, T7, CMP, TSH #### [facility] [address] [place] [address] Dr. Get Wing %NormalThe [facility]Comment on above:Performed By: #### BNP, T7, CMP, TSH #### [facility] [address] [place] [address] Dr. Get WhittenCORRECTED WBCNormal4.0-11.0The [facility]Comment on above: Performed By: #### BNP, T7, CMP, TSH #### [facility] [address] [place] [address] Dr. Get Kendrick #0.00 103/ulNormal0.00-0.70The [facility]Comment on above:Performed By: #### BNP, T7, CMP, TSH #### [facility] [address] [place] [address] Dr. Yilan ChangEOS%0.0 %Critically low0.9-7.0The [facility] on above:Performed By: #### BNP, T7, CMP, TSH #### [facility] [address] [place] [address] Dr. Get MurciaT36.3 %Critically low42.0-54.0The [facility] on above:Performed By: #### BNP, T7, CMP, TSH #### [facility] [address] [address] [address] Get WhittenHGB12.9 g/dlCritically low14.0-18.0The [facility] on above:Performed By: #### BNP, T7, CMP, TSH #### [facility] [address] [place] [address] Dr. Get Gabriel [facility] on above: Performed By: #### BNP, T7, CMP, TSH #### [facility] [address] [place] [address] Dr. Get Villarreal #0.89 103/ulCritically low1.20-3.80The [facility] Comment on above:Performed By: #### BNP, T7, CMP, TSH #### [facility] [address] [place] [address] Dr. Get Villarreal%7.0 %Critically low20.5-60.0The [facility] on above:Performed By: #### BNP, T7, CMP, TSH #### [facility] [address] [place] [address] Dr. Get WhittenMCH36.5 pgCritically high25.9-34.0The [facility] on above:Performed By: #### BNP, T7, CMP, TSH #### [facility] [address] [place] [address] Dr. Get FriedHC35.5 g/dlCritically high29.9-35.2The [facility] on above:Performed By: #### BNP, T7, CMP, TSH #### [facility] [address] [address] [address] Get FriedV102.8 fLCritically high80.0-94.0The [facility] Hospital[facility] on above:Performed By: #### BNP, T7, CMP, TSH #### [facility] [address] [address] [address] Get SalinasOCYTE #NormalThe [facility] HospitalComment on above: Performed By: #### BNP, T7, CMP, TSH #### [facility] [address] [address] [address] Get SalinasOCYTE %NormalThe [facility]Comment on above: Performed By: #### BNP, T7, CMP, TSH #### [facility] [address] [address] [address] Get Leyva#1.02 103/ulCritically high0.30-0.80The [facility] Comment on above:Performed By: #### BNP, T7, CMP, TSH #### [facility] [address] [place] [address] Dr. Get Leyva%8.0 %Normal1.7-12.0The [facility] on above: Performed By: #### BNP, T7, CMP, TSH #### [facility] [address] [place] [address] Dr. Get RivasV9.1 fLCritically low9.5-13.5The [facility] HospitalComment on above:Performed By: #### BNP, T7, CMP, TSH #### [facility] [address] [place] [address] Dr. Get Kasper #NormalKettering Memorial HospitalComment on above:Performed By: #### BNP, T7, CMP, TSH #### [facility] [address] [place] [address] Dr. Get Kasper %NormalThe [facility] HospitalComment on above:Performed By: #### BNP, T7, CMP, TSH #### [facility] [address] [place] [address] Dr. Get CaballeroNormalThe [facility] HospitalComment on above:Performed By: #### BNP, T7, CMP, TSH #### [facility] [address] [place] [address] Dr. Get WhittenPLT181 103/rxYxjskf384-871Ruk [facility] Centerment on above: Performed By: #### BNP, T7, CMP, TSH #### [facility] [address] [place] [address] Dr. Get RubioC3.53 106/ulCritically low4.70-6.10The [facility]Comment on above:Performed By: #### BNP, T7, CMP, TSH #### [facility] [address] [place] [address] Dr. Get RamirezW12.7 %Qfghbo82.0-15.0The [facility] on above: Performed By: #### BNP, T7, CMP, TSH #### [facility] [address] [place] [address] Dr. Get Kimble #10.54 103/ulCritically high1.40-6.50The [facility] Comment on above:Performed By: #### BNP, T7, CMP, TSH #### [facility] [address] [place] [address] Dr. Get Kimble %83.0 %Critically high43.0-75.0The [facility] on above:Performed By: #### BNP, T7, CMP, TSH #### [facility] [address] [place] [address] Dr. Get ShepherdBC12.7 103/ulCritically high4.0-11.0The [facility] on above:Performed By: #### BNP, T7, CMP, TSH #### [facility] [address] [place] [address] Dr. Get Richards 14(COMP METB)on [id number] [Mass/Vol]3.0 g/dL Critically low3.4-5.0The [facility] on above:Performed By: #### BNP, T7, CMP, TSH #### [facility] [address] [address] [address] Get WhittenAlbumin/Globulin [Mass ratio]1.2 {ratio}NormalThe [facility] HospitalComment on above:Performed By: #### BNP, T7, CMP, TSH #### [facility] [address] [address] [address] Get MartinezP [Catalytic activity/Vol]39 U/LCritically kvh47-348Bks [facility] HospitalComment on above:Performed By: #### BNP, T7, CMP, TSH #### [facility] [address] [address] [address] Get MartinezT [Catalytic activity/Vol]94 U/LCritically vctk15-33Wbw [facility]Comment on above:Performed By: #### BNP, T7, CMP, TSH #### [facility] [address] [address] [address] Get Torrezon gap [Moles/Vol]11.4 mmol/LNormalThe [facility] Comment on above:Performed By: #### BNP, T7, CMP, TSH #### [facility] [address] [address] [address] Get WhittenAST [Catalytic activity/Vol]37 U/HQxskcv81-64Ksk [facility]Comment on above:Performed By: #### BNP, T7, CMP, TSH #### [facility] [address] [address] [address] Get WhittenBilirubin [Mass/Vol]0.4 mg/dLNormal0.2-1.0The [facility] Comment on above:Performed By: #### BNP, T7, CMP, TSH #### [facility] [address] [address] [address] Get WhittenCalcium [Mass/Vol]7.9 mg/dLCritically low8.5-10.1The [facility]Comment on above:Performed By: #### BNP, T7, CMP, TSH #### [facility] [address] [address] [address] Get WhittenChloride [Moles/Vol]102 mmol/ILrkfpg16-823Haq [facility] Comment on above:Performed By: #### BNP, T7, CMP, TSH #### [facility] [address] [place] [address] Dr. Get WhittenCO2 [Moles/Vol]21.0 mmol/CLcxyjw50.0-32.0The [facility] Comment on above:Performed By: #### BNP, T7, CMP, TSH #### [facility] [address] [place] [address] Dr. Get WhittenCreatinine [Mass/Vol]1.07 mg/dLNormal0.70-1.30The [facility]Comment on above:Performed By: #### BNP, T7, CMP, TSH #### [facility] [address] [place] [address] Dr. Get PaytonGFR-AF NICARAGUAN>86Normal>=60The [facility]Comment on above:Performed By: #### BNP, T7, CMP, TSH #### [facility] [address] [place] [address] Dr. Get PaytonGFR-NON AF NICARAGUAN>60Normal>=60The [facility] on above:Performed By: #### BNP, T7, CMP, TSH #### [facility] [address] [place] [address] Dr. Get WhittenGlobulin (S) [Mass/Vol]2.6 g/dLNormalThe [facility]Comment on above:Performed By: #### BNP, T7, CMP, TSH #### [facility] [address] [place] [address] Dr. Get WhittenGlucose [Mass/Vol]132 mg/dLCritically tosk03-941Ugc [facility]Comment on above:Performed By: #### BNP, T7, CMP, TSH #### [facility] [address] [place] [address] Dr. Get WhittenPotassium [Moles/Vol]3.4 mmol/LCritically low3.5-5.1The [facility] on above:Performed By: #### BNP, T7, CMP, TSH #### [facility] [address] [place] [address] Dr. Get WhittenProtein [Mass/Vol]5.6 g/dLCritically low6.4-8.2The [facility] on above:Performed By: #### BNP, T7, CMP, TSH #### [facility] [address] [place] [address] Dr. Get WhittenSodium [Moles/Vol]131 mmol/LCritically akh022-979Mpv [facility] on above:Performed By: #### BNP, T7, CMP, TSH #### [facility] [address] [place] [address] Dr. Get WhittenUrea nitrogen [Mass/Vol]16.0 mg/dLNormal7.0-18.0The [facility] on above:Performed By: #### BNP, T7, CMP, TSH #### [facility] [address] [place] [address] Dr. Get De Jesus nitrogen/Creatinine [Mass ratio]15.0 mg/mgNormalThe [facility]Comment on above:Performed By: #### BNP, T7, CMP, TSH #### [facility] [address] [place] [address] Dr. Get WhittenT3, TOTAL (TRIIODOTHYRONINE)on [id number], TOTAL<20Critically wpr90-510Xmi [facility] on above:Performed By: #### CMP, HSTROPN, BNP #### [facility] [address] [place] [address] Dr. Get WhittenT4 LABCORPon [id number] [Mass/Vol]0.7 ug/dLInvalid Interpretation Code4.5-12.0The [facility] on above:Performed By: #### CVDTBH #### [facility] [address] [place] [address] Dr. Get Daswon [id number] peptide B (Bld) [Mass/Vol]340.0 pg/mL Normal<=900.0The [facility] on above:Performed By: #### BNP, T7, CMP, TSH #### [facility] [address] [place] [address] Dr. Get Meyer AUTO DIFFon [id number] #0.0 103/ulNormal0.0-0.1The [facility] on above:Performed By: #### CMP, HSTROPN, BNP #### [facility] [address] [place] [address] Dr. Get WhittenBasophils/100 WBC (Bld)0.1 %Critically low0.2-2.0The [facility] on above:Performed By: #### CMP, HSTROPN, BNP #### [facility] [address] [place] [address] Dr. Get Babcock #0.0 103/ulNormal0.0-0.7The [facility]Com[facility] on above: Performed By: #### CMP, HSTROPN, BNP #### [facility] [address] [place] [address] Dr. Get Paytonosinophils/100 WBC (Bld)0.1 %Critically low0.9-7.0The [facility] on above:Performed By: #### CMP, HSTROPN, BNP #### [facility] [address] [place] [address] Dr. Get Paytonrythrocyte distribution width (RBC) [Ratio]12.7 %Yvcxjb65.0-15.0 The [facility] on above:Performed By: #### CMP, HSTROPN, BNP #### [facility] [address] [place] [address] Dr. Get WhittenHematocrit (Bld) [Volume fraction]38.7 %Critically low42.0-54.0 The [facility] on above:Performed By: #### CMP, HSTROPN, BNP #### [facility] [address] [place] [address] Dr. Get WhittenHemoglobin (Bld) [Mass/Vol]13.6 g/dLCritically low14.0-18.0The [facility]Comment on above:Performed By: #### CMP, HSTROPN, BNP #### [facility] [address] [place] [address] Dr. Get Sanford #1.95 10e3/ulCritically high0.00-0.03The [facility] Comment on above:Performed By: #### CMP, HSTROPN, BNP #### [facility] [address] [place] [address] Dr. Get Sanford %16.0 %Critically high0.0-0.5The [facility] on above:Performed By: #### CMP, HSTROPN, BNP #### [facility] [address] [place] [address] Dr. Get Otoole #1.7 103/ulNormal1.2-3.8The [facility] on above:Performed By: #### CMP, HSTROPN, BNP #### [facility] [address] [place] [address] Dr. Get Ramirezhocytes/100 WBC (Bld)13.8 %Critically low20.5-60.0The [facility] on above:Performed By: #### CMP, HSTROPN, BNP #### [facility] [address] [place] [address] Dr. Get HeadUAL DIFF REQNONormalThe [facility]Comment on above: Performed By: #### CMP, HSTROPN, BNP #### [facility] [address] [place] [address] Dr. Get Fried (RBC) [Entitic mass]36.2 pgCritically high25.9-34.0The [facility]Comment on above:Performed By: #### CMP, HSTROPN, BNP #### [facility] [address] [place] [address] Dr. Get Fried (RBC) [Mass/Vol]35.1 g/kMJlwggr24.9-35.2The [facility] on above:Performed By: #### CMP, HSTROPN, BNP #### [facility] [address] [place] [address] Dr. Get Whitten (RBC) [Entitic vol]102.9 fLCritically high80.0-94.0The [facility] on above:Performed By: #### CMP, HSTROPN, BNP #### [facility] [address] [place] [address] Dr. Get Bill #0.4 103/ulNormal0.3-0.8The [facility] on above:Performed By: #### CMP, HSTROPN, BNP #### [facility] [address] [place] [address] Dr. Get Lockettocytes/100 WBC (Bld)3.3 %Normal1.7-12.0[facility] Comment on above:Performed By: #### CMP, HSTROPN, BNP #### [facility] [address] [place] [address] Dr. Get Falcon #8.2 103/ulCritically high1.4-6.5The [facility] Comment on above:Performed By: #### CMP, HSTROPN, BNP #### [facility] [address] [place] [address] Dr. Get Andersonutrophils/100 WBC (Bld)66.7 %Mhelxq93.0-75.0The [facility]Comment on above:Performed By: #### CMP, HSTROPN, BNP #### [facility] [address] [place] [address] Dr. Get Castro mean volume (Bld) [Entitic vol]9.2 fLCritically low 9.5-13.5The [facility]Comment on above:Performed By: #### CMP, HSTROPN, BNP #### [facility] [address] [place] [address] Dr. Get WhittenPLT167 103/gqQrpzkq087-786Wxr [facility] HospitalComment on above: Performed By: #### CMP, HSTROPN, BNP #### [facility] [address] [address] [address] Get WhittenRBC3.76 106/ulCritically low4.70-6.10The [facility] on above:Performed By: #### CMP, HSTROPN, BNP #### [facility] [address] [address] [address] Get WhittenWBC12.2 103/ulCritically high4.0-11.0The [facility] on above:Performed By: #### CMP, HSTROPN, BNP #### [facility] [address] [address] [address] Get Richards 14(COMP METB)on 06-16-1214Pguktrz [Mass/Vol]3.1 g/dL Critically low3.4-5.0The [facility] on above:Performed By: #### BNP, T7, CMP, TSH #### [facility] [address] [place] [address] Dr. Get WhittenAlbumin/Globulin [Mass ratio]1.1 {ratio}NormalThe [facility] Centerment on above:Performed By: #### BNP, T7, CMP, TSH #### [facility] [address] [address] [address] Get Saba [Catalytic activity/Vol]44 U/LCritically gvu54-452Jke [facility] Centerment on above:Performed By: #### BNP, T7, CMP, TSH #### [facility] [address] [place] [address] Dr. Get Pichardo [Catalytic activity/Vol]87 U/LCritically vyqz42-42Mfy [facility] Centerment on above:Performed By: #### BNP, T7, CMP, TSH #### [facility] [address] [address] [address] Get Crow gap [Moles/Vol]12.6 mmol/LNormalThe [facility] Comment on above:Performed By: #### BNP, T7, CMP, TSH #### [facility] [address] [address] [address] Get WhittenAST [Catalytic activity/Vol]38 U/LCritically jhog22-83Twp [facility] HospitalComment on above:Performed By: #### BNP, T7, CMP, TSH #### [facility] [address] [address] [address] Get WhittenBilirubin [Mass/Vol]0.4 mg/dLNormal0.2-1.0The [facility] Comment on above:Performed By: #### BNP, T7, CMP, TSH #### [facility] [address] [place] [address] Dr. Get WhittenCalcium [Mass/Vol]7.7 mg/dLCritically low8.5-10.1The [facility]Comment on above:Performed By: #### BNP, T7, CMP, TSH #### [facility] [address] [place] [address] Dr. Get WhittenChloride [Moles/Vol]97 mmol/LCritically eua42-993Ioj [facility] HospitalComment on above:Performed By: #### BNP, T7, CMP, TSH #### [facility] [address] [place] [address] Dr. Get WhittenCO2 [Moles/Vol]22.1 mmol/RIhcnfw47.0-32.0The [facility] Comment on above:Performed By: #### BNP, T7, CMP, TSH #### [facility] [address] [place] [address] Dr. Get WhittenCreatinine [Mass/Vol]1.17 mg/dLNormal0.70-1.30The [facility]Comment on above:Performed By: #### BNP, T7, CMP, TSH #### [facility] [address] [place] [address] Dr. eGt PaytonGFR-AF NICARAGUAN>60Normal>=60The [facility]Comment on above:Performed By: #### BNP, T7, CMP, TSH #### [facility] [address] [place] [address] Dr. Get PaytonGFR-NON AF NICARAGUAN>60Normal>=60The [facility] Centerment on above:Performed By: #### BNP, T7, CMP, TSH #### [facility] [address] [address] [address] Get WhittenGlobulin (S) [Mass/Vol]2.7 g/dLNoRegency Hospital Cleveland EastComment on above:Performed By: #### BNP, T7, CMP, TSH #### [facility] [address] [address] [address] Get WhittenGlucose [Mass/Vol]165 mg/dLCritically dqeu48-343Xnt [facility] on above:Performed By: #### BNP, T7, CMP, TSH #### [facility] [address] [place] [address] Dr. Get WhittenPotassium [Moles/Vol]3.7 mmol/LNormal3.5-5.1The [facility] Comment on above:Performed By: #### BNP, T7, CMP, TSH #### [facility] [address] [address] [address] Get WhittenProtein [Mass/Vol]5.8 g/dLCritically low6.4-8.2The [facility] on above:Performed By: #### BNP, T7, CMP, TSH #### [facility] [address] [place] [address] Dr. Get WhittenSodium [Moles/Vol]128 mmol/LCritically qjt687-028Ggl [facility] on above:Performed By: #### BNP, T7, CMP, TSH #### [facility] [address] [place] [address] Dr. Get WhittenUrea nitrogen [Mass/Vol]17.0 mg/dLNormal7.0-18.0The [facility] Centerment on above:Performed By: #### BNP, T7, CMP, TSH #### [facility] [address] [place] [address] Dr. Get WhittenUrea nitrogen/Creatinine [Mass ratio]14.5 mg/mgNormalThe [facility] HospitalComment on above:Performed By: #### BNP, T7, CMP, TSH #### [facility] [address] [address] [address] Get Turner RANDOM URINEon 52-65-3928Zzkqfs (U) [Moles/Vol]6 mmol/L Critically jxs40-33Tgs [facility] HospitalComment on above:Performed By: #### BNP, T7, CMP, TSH #### [facility] [address] [place] [address] Dr. Get Dawson 34-78-2028Lebdgpaqtxw peptide B (Bld) [Mass/Vol]472.0 pg/mL Normal<=900.0The [facility] HospitalComment on above:Performed By: #### CMP, HSTROPN, BNP #### [facility] [address] [place] [address] Dr. Get Crockett ANA 3-6on 13-72-2909BX [Catalytic activity/Vol]53 U/L Fyqdwg74-045Dbl [facility] HospitalComment on above:Performed By: #### CVDTBH #### [facility] [address] [place] [address] Dr. Get Melara.MB [Mass/Vol]1.61 ng/mLNormal<=3.60The [facility] Comment on above:Performed By: #### CVDTBH #### [facility] [address] [place] [address] Dr. Get WhittenHSTROP20.2 pg/mLNormal4.0-76.1The [facility] Centerment on above:Result Comment: CUT-OFF POINTS HAVE BEEN ESTABLISHED BASED ON THE FOURTH UNIVERSAL DEFINITIONS OF MYOCARDIAL INFARCTION. THE UPPER REFERENCE LIMIT (URL) OF TROPONIN, DEFINED THE 99TH PERCENTILE OF cTnI DISTRIBUTION IN A REFERENCE POPULATION, HAS BEEN CONFIRMED THE DECISION THRESHOLD FOR AR DIAGNOSIS.Performed By: #### CVDTBH #### [facility] [address] [place] [address] Dr. Get Melara [Catalytic activity/Vol]40 U/JTjrtqp06-628Nmg [facility] HospitalComment on above:Performed By: #### BNP, T7, CMP, TSH #### [facility] [address] [address] [address] Get Melara.MB [Mass/Vol]1.53 ng/mLNormal<=3.60[facility] Comment on above:Performed By: #### BNP, T7, CMP, TSH #### [facility] [address] [place] [address] Dr. Get WhittenHSTROP23.6 pg/mLNormal4.0-76.1The [facility] HospitalComment on above:Result Comment: CUT-OFF POINTS HAVE BEEN ESTABLISHED BASED ON THE FOURTH UNIVERSAL DEFINITIONS OF MYOCARDIAL INFARCTION. THE UPPER REFERENCE LIMIT (URL) OF TROPONIN, DEFINED THE 99TH PERCENTILE OF cTnI DISTRIBUTION IN A REFERENCE POPULATION, HAS BEEN CONFIRMED THE DECISION THRESHOLD FOR AR DIAGNOSIS.Performed By: #### BNP, T7, CMP, TSH #### [facility] [address] [place] [address] Dr. Get Meyer W MANUAL DIFFon 05-31-8100UFJWGUSW LYMPH #NormalThe [facility] HospitalComment on above:Performed By: #### CMP, HSTROPN, BNP #### [facility] [address] [place] [address] Dr. Get WhittenATYPICAL LYMPH %NormalThe [facility] HospitalComment on above: Performed By: #### CMP, HSTROPN, BNP #### [facility] [address] [place] [address] Dr. Get Day #0.5 103/ulCritically high0.0-0.3The [facility] Comment on above:Performed By: #### CMP, HSTROPN, BNP #### [facility] [address] [place] [address] Dr. Get Day %4 %Normal0-5The [facility] HospitalComment on above:Performed By: #### CMP, HSTROPN, BNP #### [facility] [address] [place] [address] Dr. Get Aceves #0.00 103/ulNormal0.00-0.10The [facility] HospitalComment on above:Performed By: #### CMP, HSTROPN, BNP #### [facility] [address] [address] [address] Get Aceves %0.0 %Critically low0.2-2.0The [facility] HospitalComment on above:Performed By: #### CMP, HSTROPN, BNP #### [facility] [address] [address] [address] Get WhittenBLAST #NormalThe [facility] HospitalComment on above:Performed By: #### CMP, HSTROPN, BNP #### [facility] [address] [address] [address] Get WhittenBLAST %NormalThe [facility] HospitalComc.[facility] on above:Performed By: #### CMP, HSTROPN, BNP #### [facility] [address] [place] [address] Dr. Get WhittenCORRECTED WBCNormal4.0-11.0The [facility] on above: Performed By: #### CMP, HSTROPN, BNP #### [facility] [address] [place] [address] Dr. Get Kendrick #0.00 103/ulNormal0.00-0.70The [facility] on above:Performed By: #### CMP, HSTROPN, BNP #### [facility] [address] [place] [address] Dr. Get Kendrick%0.0 %Critically low0.9-7.0The [facility] on above:Performed By: #### CMP, HSTROPN, BNP #### [facility] [address] [place] [address] Dr. Get WhittenHCT44.0 %Qyblph92.0-54.0The [facility] on above: Performed By: #### CMP, HSTROPN, BNP #### [facility] [address] [place] [address] Dr. Get WhittenHGB15.8 g/fsGatbmz00.0-18.0The [facility] HospitalComment on above: Performed By: #### CMP, HSTROPN, BNP #### [facility] [address] [address] [address] Get Gabriel NEUT2+NormalThe [facility] HospitalComment on above: Performed By: #### CMP, HSTROPN, BNP #### [facility] [address] [place] [address] Dr. Get Villarreal #1.56 103/ulNormal1.20-3.80The [facility] HospitalComment on above:Performed By: #### CMP, HSTROPN, BNP #### [facility] [address] [address] [address] Get Villarreal%13.0 %Critically low20.5-60.0The [facility] HospitalComment on above:Performed By: #### CMP, HSTROPN, BNP #### [facility] [address] [place] [address] Dr. Get FriedH36.2 pgCritically high25.9-34.0The [facility] HospitalComment on above:Performed By: #### CMP, HSTROPN, BNP #### [facility] [address] [place] [address] Dr. Get FriedHC35.9 g/dlCritically high29.9-35.2The [facility] HospitalComment on above:Performed By: #### CMP, HSTROPN, BNP #### [facility] [address] [place] [address] Dr. Get FriedV100.7 fLCritically high80.0-94.0The [facility] HospitalComment on above:Performed By: #### CMP, HSTROPN, BNP #### [facility] [address] [place] [address] Dr. Get SalinasOCYTE #NormalThe [facility] HospitalComment on above: Performed By: #### CMP, HSTROPN, BNP #### [facility] [address] [place] [address] Dr. Get SalinasOCYTE %NormalThe [facility] HospitalComment on above: Performed By: #### CMP, HSTROPN, BNP #### [facility] [address] [address] [address] Get Leyva#1.08 103/ulCritically high0.30-0.80[facility] on above:Performed By: #### CMP, HSTROPN, BNP #### [facility] [address] [address] [address] Get Leyva%9.0 %Normal1.7-12.0The [facility] HospitalComment on above: Performed By: #### CMP, HSTROPN, BNP #### [facility] [address] [place] [address] Dr. Get RivasV10.3 fLNormal9.5-13.5The [facility] HospitalComment on above: Performed By: #### CMP, HSTROPN, BNP #### [facility] [address] [place] [address] Dr. Get Kasper #NormalSelect [facility] on above:Performed By: #### CMP, HSTROPN, BNP #### [facility] [address] [place] [address] Dr. Get Kasper %NormalThe [facility] HospitalComc.[facility] on above:Performed By: #### CMP, HSTROPN, BNP #### [facility] [address] [place] [address] Dr. Get ConnBCNormalThe [facility] Centerment on above:Performed By: #### CMP, HSTROPN, BNP #### [facility] [address] [place] [address] Dr. Get WhittenPLT111 103/ulCritically pex279-043Jvz [facility] on above:Performed By: #### CMP, HSTROPN, BNP #### [facility] [address] [place] [address] Dr. Get WhittenRBC4.37 106/ulCritically low4.70-6.10The [facility] HospitalComment on above:Performed By: #### CMP, HSTROPN, BNP #### [facility] [address] [place] [address] Dr. Get De Guzman12.4 %Bqcxef62.0-15.0The [facility] HospitalComment on above: Performed By: #### CMP, HSTROPN, BNP #### [facility] [address] [place] [address] Dr. Get Kimble #8.88 103/ulCritically high1.40-6.50The [facility] Comment on above:Performed By: #### CMP, HSTROPN, BNP #### [facility] [address] [place] [address] Dr. Get Kimble %74.0 %Icdfxn76.0-75.0The [facility] HospitalComment on above: Performed By: #### CMP, HSTROPN, BNP #### [facility] [address] [place] [address] Dr. Get ShepherdBC12.0 103/ulCritically high4.0-11.0The [facility] HospitalComment on above:Performed By: #### CMP, HSTROPN, BNP #### [facility] [address] [place] [address] Dr. Get Cintron 31-01-1023GFI [Mass/Vol]mg/LNormal<=1.0The [facility] HospitalComment on above:Performed By: #### CMP, HSTROPN, BNP #### [facility] [address] [place] [address] Dr. Get Frenchd-19 PCR (CVDTBH)on 55-30-3146HBWA-CoV-2 (COVID-19) RNA ASHLEE+probe Ql (Unsp spec)DetectedCritically abnormalNOT DETECTEDThe [facility] HospitalComment on above:Result Comment: This test is not yet approved or cleared by the [place] FDA. When there are no FDA-approved or cleared tests available, and other criteria are met, FDA can make tests available under an emergency access mechanism called an Emergency Use Authorization (EUA). The EUA for this test is supported by the [place] of Health and Human Service's declaration that circumstances exist to justify the emergency use of in vitro diagnostics for the detection and/or diagnosis of the virusthat causes COVID-19. This EUA will remain in effect for the duration of the COVID-19 declaration ju stifying emergency of IVDs, unless it is terminated or revoked by the FDA (after which the test mayno longer be used).Performed By: #### CVDTBH #### [facility] [address] [place] [address] Dr. Get WhittenLACTATE/LACTIC ACIDon 84-30-9753Uabrgyo [Moles/Vol]0.4 mmol/L Normal0.4-1.9The [facility] HospitalComment on above:Performed By: #### CMP, HSTROPN, BNP #### [facility] [address] [place] [address] Dr. Get Mckeon 08-59-4229Plwjcc [Moles/Vol]126 mmol/LCritically lva963-[address] [facility] HospitalComment on above:Performed By: #### BNP, T7, CMP, TSH #### [facility] [address] [place] [address] Dr. Get Richards 14(COMP METB)on 31-15-4822Ksgliyc [Mass/Vol]3.6 g/dLNormal 3.4-5.0The [facility] HospitalComment on above:Performed By: #### CMP, HSTROPN, BNP #### [facility] [address] [place] [address] Dr. Get WhittenAlbumin/Globulin [Mass ratio]1.0 {ratio}NormalThe [facility] HospitalComment on above:Performed By: #### CMP, HSTROPN, BNP #### [facility] [address] [place] [address] Dr. Get Saba [Catalytic activity/Vol]49 U/CDhedll98-898Qey [facility] HospitalComment on above:Performed By: #### CMP, HSTROPN, BNP #### [facility] [address] [place] [address] Dr. Get Pichardo [Catalytic activity/Vol]80 U/LCritically uvgc00-93Tkq [facility] HospitalComment on above:Performed By: #### CMP, HSTROPN, BNP #### [facility] [address] [address] [address] Get Torrezon gap [Moles/Vol]16.2 mmol/LNormalThe [facility] Comment on above:Performed By: #### CMP, HSTROPN, BNP #### [facility] [address] [address] [address] Get WhittenAST [Catalytic activity/Vol]42 U/LCritically ybuy14-46Esw [facility] HospitalComment on above:Performed By: #### CMP, HSTROPN, BNP #### [facility] [address] [place] [address] Dr. Get WhittenBilirubin [Mass/Vol]0.7 mg/dLNormal0.2-1.0The [facility] Comment on above:Performed By: #### CMP, HSTROPN, BNP #### [facility] [address] [address] [address] Get WhittenCalcium [Mass/Vol]8.4 mg/dLCritically low8.5-10.1The [facility] HospitalComment on above:Performed By: #### CMP, HSTROPN, BNP #### [facility] [address] [address] [address] Get WhittenChloride [Moles/Vol]91 mmol/LCritically rfz18-179Rov [facility] HospitalComment on above:Performed By: #### CMP, HSTROPN, BNP #### [facility] [address] [place] [address] Dr. Get WhittenCO2 [Moles/Vol]19.8 mmol/LCritically low21.0-32.0The [facility] HospitalComment on above:Performed By: #### CMP, HSTROPN, BNP #### [facility] [address] [place] [address] Dr. Get WhittenCreatinine [Mass/Vol]1.11 mg/dLNormal0.70-1.30The [facility] HospitalComment on above:Performed By: #### CMP, HSTROPN, BNP #### [facility] [address] [place] [address] Dr. Get PaytonGFR-AF NICARAGUAN>60Normal>=60The [facility] HospitalComment on above:Performed By: #### CMP, HSTROPN, BNP #### [facility] [address] [place] [address] Dr. Get PaytonGFR-NON AF NICARAGUAN>60Normal>=60The [facility] HospitalComment on above:Performed By: #### CMP, HSTROPN, BNP #### [facility] [address] [place] [address] Dr. Get WhittenGlobulin (S) [Mass/Vol]3.6 g/dLNormalThe [facility] HospitalComment on above:Performed By: #### CMP, HSTROPN, BNP #### [facility] [address] [place] [address] Dr. Get WhittenGlucose [Mass/Vol]109 mg/dLCritically znpa82-069Cxt [facility] HospitalComment on above:Performed By: #### CMP, HSTROPN, BNP #### [facility] [address] [place] [address] Dr. Get WhittenPotassium [Moles/Vol]4.0 mmol/LNormal3.5-5.1The [facility] Comment on above:Performed By: #### CMP, HSTROPN, BNP #### [facility] [address] [place] [address] Dr. Get WhittenProtein [Mass/Vol]7.2 g/dLNormal6.4-8.2The [facility] Comment on above:Performed By: #### CMP, HSTROPN, BNP #### [facility] [address] [place] [address] Dr. Get WhittenSodium [Moles/Vol]123 mmol/LCritically jzj768-802Smv [facility] HospitalComment on above:Performed By: #### CMP, HSTROPN, BNP #### [facility] [address] [address] [address] Get De Jesus nitrogen [Mass/Vol]15.0 mg/dLNormal7.0-18.0[facility] on above:Performed By: #### CMP, HSTROPN, BNP #### [facility] [address] [address] [address] Get WhittenUrea nitrogen/Creatinine [Mass ratio]13.5 mg/mgBlanchard Valley Health SystemComc.s. [facility] on above:Performed By: #### CMP, HSTROPN, BNP #### [facility] [address] [address] [address] Get Reid GRAM STAINon 96-91-6708WSSNQZUWSK ORGANISMS OBSERVEDAultman Alliance Community HospitalComc.s. [facility] on above:Performed By: #### CVDTBH #### [facility] [address] [place] [address] Dr. Get LopezPHTHEROIDSBlanchard Valley Health SystemComc.[facility]. [facility] on above:Performed By: #### CVDTBH #### [facility] [address] [address] [address] Get LaiLIALS<25Bl[facility] SystemComc.[facility] on above: Performed By: #### CVDTBH #### [facility] [address] [place] [address] Dr. Get IsaacNGAL ELEMENTSBlanchard Valley Health SystemComc.s. [facility] on above: Performed By: #### CVDTBH #### [facility] [address] [place] [address] Dr. Get Bonner NEG BACILLIBlanchard Valley Health SystemComc.s. [facility] on above: Performed By: #### CVDTBH #### [facility] [address] [address] [address] eGt Bonner NEG DIPPLOCOCCIBlanchard Valley Health SystemComc.s. [facility] on above: Performed By: #### CVDTBH #### [facility] [address] [address] [address] Get Bonner POS BACILLIBlanchard Valley Health SystemComment on above: Performed By: #### CVDTBH #### [facility] [address] [address] [address] Get Bonner POSITIVE COCCINoRegency Hospital Cleveland EastComc.s. [facility] on above: Performed By: #### CVDTBH #### [facility] [address] [address] [address] Get WhittenWBC (Bld) [#/Vol]10*3/uLBlanchard Valley Health SystemComc.s. [facility] on above:Performed By: #### CVDTBH #### [facility] [address] [address] [address] Get Charles, HIGH SENSITIVITYon 94-43-8114MGHSKA88.8 pg/mLNormal 4.0-76.1[facility] on above:Result Comment: CUT-OFF POINTS HAVE BEEN ESTABLISHED BASED ON THE FOURTH UNIVERSAL DEFINITIONS OF MYOCARDIAL INFARCTION. THE UPPER REFERENCE LIMIT (URL) OF TROPONIN, DEFINED THE 99TH PERCENTILE OF cTnI DISTRIBUTION IN A REFERENCE POPULATION, HAS BEEN CONFIRMED THE DECISION THRESHOLD FOR AR DIAGNOSIS.Performed By: #### CMP, HSTROPN, BNP #### [facility] [address] [place] [address] Dr. Get Hidalgo 66-75-8777JMN08.305 uIU/mLCritically high0.358-3.740The [facility] on above:Performed By: #### CMP, HSTROPN, BNP #### [facility] [address] [place] [address] Dr. Get WhittenXR CHEST 1 Von [id number] CHEST 1 VEXAM: XR CHEST 1 V HISTORY: COUGH COMPARISON: Chest x-ray 03/23/2022 TECHNIQUE: Single frontal view chest x-ray FINDINGS: No lobar consolidation, large pleural effusions, pneumothorax, or acute bony abnormality. Cardiac size is unremarkable. IMPRESSION: No radiographic evidence for acute chest abnormality. Electronically authenticated by: JAKNI STEEL Date: 2022-03-26 04:[address] [place], [place] [address]BNPon 68-32-5410Suxtvecrzkm peptide B (Bld) [Mass/Vol]385.0 pg/mLNormal<=900.0The [facility] HospitalComment on above:Performed By: #### CMP, HSTROPN, BNP #### [facility] [address] [place] [address] Dr. Get Meyer W MANUAL DIFFon 82-72-3430CVKVYHTP LYMPH #NormalThe [facility] HospitalComment on above:Performed By: #### BNP, T7, CMP, TSH #### [facility] [address] [place] [address] Dr. Get EdouardYPICAL LYMPH %NormalThe [facility] HospitalComment on above: Performed By: #### BNP, T7, CMP, TSH #### [facility] [address] [place] [address] Dr. Get Day #0.2 103/ulNormal0.0-0.3The [facility] HospitalComment on above:Performed By: #### BNP, T7, CMP, TSH #### [facility] [address] [place] [address] Dr. Get Day %2 %Normal0-5The [facility] HospitalComment on above:Performed By: #### BNP, T7, CMP, TSH #### [facility] [address] [place] [address] Dr. Get Aceves #0.00 103/ulNormal0.00-0.10The [facility] HospitalComment on above:Performed By: #### BNP, T7, CMP, TSH #### [facility] [address] [place] [address] Dr. Get Aceves %0.0 %Critically low0.2-2.0The [facility] HospitalComment on above:Performed By: #### BNP, T7, CMP, TSH #### [facility] [address] [place] [address] Dr. Get Wing #NormalThe [facility] HospitalComment on above:Performed By: #### BNP, T7, CMP, TSH #### [facility] [address] [place] [address] Dr. Get Wing %NormalThe [facility] HospitalComment on above:Performed By: #### BNP, T7, CMP, TSH #### [facility] [address] [place] [address] Dr. Get WhittenCORRECTED WBCNormal4.0-11.0The [facility] HospitalComment on above: Performed By: #### BNP, T7, CMP, TSH #### [facility] [address] [place] [address] Dr. Get Kendrick #0.00 103/ulNormal0.00-0.70The [facility] HospitalComment on above:Performed By: #### BNP, T7, CMP, TSH #### [facility] [address] [place] [address] Dr. Get Kendrick%0.0 %Critically low0.9-7.0The [facility] HospitalComment on above:Performed By: #### BNP, T7, CMP, TSH #### [facility] [address] [place] [address] Dr. Get WhittenHCT45.6 %Lndcgg96.0-54.0The [facility] HospitalComment on above: Performed By: #### BNP, T7, CMP, TSH #### [facility] [address] [place] [address] Dr. Get WhittenHGB16.3 g/xrHzqibg26.0-18.0The [facility] HospitalComment on above: Performed By: #### BNP, T7, CMP, TSH #### [facility] [address] [place] [address] Dr. Get Villarreal #0.89 103/ulCritically low1.20-3.80The [facility] Comment on above:Performed By: #### BNP, T7, CMP, TSH #### [facility] [address] [place] [address] Dr. Get Villarreal%9.0 %Critically low20.5-60.0The [facility] HospitalComment on above:Performed By: #### BNP, T7, CMP, TSH #### [facility] [address] [place], [place] [id number] Dr. Get FriedH36.5 pgCritically high25.9-34.0The [facility] HospitalComment on above:Performed By: #### BNP, T7, CMP, TSH #### [facility] [address] [address] [address] Get FriedHC35.7 g/dlCritically high29.9-35.2The [facility] HospitalComment on above:Performed By: #### BNP, T7, CMP, TSH #### [facility] [address] [address] [address] Get FriedV102.0 fLCritically high80.0-94.0The [facility] HospitalComment on above:Performed By: #### BNP, T7, CMP, TSH #### [facility] [address] [place] [address] Dr. Get BrockELOCYTE #NormalThe [facility] HospitalComment on above: Performed By: #### BNP, T7, CMP, TSH #### [facility] [address] [place] [address] Dr. Get SalinasOCYTE %NormalThe [facility] HospitalComment on above: Performed By: #### BNP, T7, CMP, TSH #### [facility] [address] [place] [address] Dr. Get Leyva#0.89 103/ulCritically high0.30-0.80The [facility] Comment on above:Performed By: #### BNP, T7, CMP, TSH #### [facility] [address] [place] [address] Dr. Get Leyva%9.0 %Normal1.7-12.0The [facility] HospitalComment on above: Performed By: #### BNP, T7, CMP, TSH #### [facility] [address] [place] [address] Dr. Get RivasV8.8 fLCritically low9.5-13.5The [facility] HospitalComment on above:Performed By: #### BNP, T7, CMP, TSH #### [facility] [address] [place] [address] Dr. Get CaryOCYTE #NormalThe [facility] HospitalComment on above:Performed By: #### BNP, T7, CMP, TSH #### [facility] [address] [place] [address] Dr. Get CaryOCYTE %NormalThe [facility] HospitalComment on above:Performed By: #### BNP, T7, CMP, TSH #### [facility] [address] [place] [address] Dr. Get ConnBCNormalThe [facility] HospitalComment on above:Performed By: #### BNP, T7, CMP, TSH #### [facility] [address] [place] [address] Dr. Get SalazarT156 103/ouGkvtlx575-313Vaq [facility] HospitalComment on above: Performed By: #### BNP, T7, CMP, TSH #### [facility] [address] [place] [address] Dr. Get RubioC4.47 106/ulCritically low4.70-6.10The [facility] HospitalComment on above:Performed By: #### BNP, T7, CMP, TSH #### [facility] [address] [place] [address] Dr. Get RamirezW12.4 %Dapsbt22.0-15.0The [facility] Centerment on above: Performed By: #### BNP, T7, CMP, TSH #### [facility] [address] [place] [address] Dr. Get Kimble #7.92 103/ulCritically high1.40-6.50The [facility] Comment on above:Performed By: #### BNP, T7, CMP, TSH #### [facility] [address] [place] [address] Dr. Get Kimble %80.0 %Critically high43.0-75.0The [facility] HospitalComment on above:Performed By: #### BNP, T7, CMP, TSH #### [facility] [address] [place] [address] Dr. Yilan ChangWBC9.9 103/ulNormal4.0-11.0The [facility] HospitalComment on above: Performed By: #### BNP, T7, CMP, TSH #### [facility] [address] [address] [address] Get Richards 14(COMP METB)on 39-23-7465Kckkvoi [Mass/Vol]3.9 g/dLNormal 3.4-5.0The [facility] HospitalComment on above:Performed By: #### CMP, HSTROPN, BNP #### [facility] [address] [address] [address] Get WhittenAlbumin/Globulin [Mass ratio]1.1 {ratio}NormalThe [facility] HospitalComment on above:Performed By: #### CMP, HSTROPN, BNP #### [facility] [address] [place] [address] Dr. Get Saba [Catalytic activity/Vol]55 U/ALvkxtd46-548Wus [facility] HospitalComment on above:Performed By: #### CMP, HSTROPN, BNP #### [facility] [address] [address] [address] Get Pichardo [Catalytic activity/Vol]67 U/LCritically yabt33-06Kyw [facility] HospitalComment on above:Performed By: #### CMP, HSTROPN, BNP #### [facility] [address] [address] [address] Get Crow gap [Moles/Vol]13.2 mmol/LNormalThe [facility] Comment on above:Performed By: #### CMP, HSTROPN, BNP #### [facility] [address] [place] [address] Dr. Get Fierro [Catalytic activity/Vol]20 U/FBvizxu25-96Ujl [facility] HospitalComment on above:Performed By: #### CMP, HSTROPN, BNP #### [facility] [address] [address] [address] Get WhittenBilirubin [Mass/Vol]0.4 mg/dLNormal0.2-1.0The [facility] Comment on above:Performed By: #### CMP, HSTROPN, BNP #### [facility] [address] [place] [address] Dr. Get WhittenCalcium [Mass/Vol]8.5 mg/dLNormal8.5-10.1[facility] Comment on above:Performed By: #### CMP, HSTROPN, BNP #### [facility] [address] [place] [address] Dr. Get WhittenChloride [Moles/Vol]93 mmol/LCritically slx86-277Xok [facility] HospitalComment on above:Performed By: #### CMP, HSTROPN, BNP #### [facility] [address] [place] [address] Dr. Get WhittenCO2 [Moles/Vol]22.6 mmol/JJktjjo53.0-32.0The [facility] Comment on above:Performed By: #### CMP, HSTROPN, BNP #### [facility] [address] [place] [address] Dr. Get WhittenCreatinine [Mass/Vol]1.26 mg/dLNormal0.70-1.30The [facility] HospitalComment on above:Performed By: #### CMP, HSTROPN, BNP #### [facility] [address] [place] [address] Dr. Deutsch ChangEGFR-AF NICARAGUAN>60Normal>=60The [facility] HospitalComment on above:Performed By: #### CMP, HSTROPN, BNP #### [facility] [address] [place] [address] Dr. Get PaytonGFR-NON AF GYYIRWFE27 mL/min/1.63p1Uybdpiyjgt low>=60The [facility] HospitalComment on above:Performed By: #### CMP, HSTROPN, BNP #### [facility] [address] [place] [address] Dr. Get WhittenGlobulin (S) [Mass/Vol]3.5 g/dLNormalThe [facility] HospitalComment on above:Performed By: #### CMP, HSTROPN, BNP #### [facility] [address] [address] [address] Get WhittenGlucose [Mass/Vol]144 mg/dLCritically rott52-880Ozu [facility] HospitalComment on above:Performed By: #### CMP, HSTROPN, BNP #### [facility] [address] [address] [address] Get WhittenPotassium [Moles/Vol]3.9 mmol/LNormal3.5-5.1The [facility] Comment on above:Performed By: #### CMP, HSTROPN, BNP #### [facility] [address] [address] [address] Get WhittenProtein [Mass/Vol]7.4 g/dLNormal6.4-8.2[facility] Comment on above:Performed By: #### CMP, HSTROPN, BNP #### [facility] [address] [place] [address] Dr. Get WhittenSodium [Moles/Vol]125 mmol/LCritically xag075-348Hmu [facility] HospitalComment on above:Performed By: #### CMP, HSTROPN, BNP #### [facility] [address] [place] [address] Dr. Get WhittenUrea nitrogen [Mass/Vol]14.0 mg/dLNormal7.0-18.0The [facility] HospitalComment on above:Performed By: #### CMP, HSTROPN, BNP #### [facility] [address] [place] [address] Dr. Get WhittenUrea nitrogen/Creatinine [Mass ratio]11.1 mg/mgNormalThe [facility] HospitalComment on above:Performed By: #### CMP, HSTROPN, BNP #### [facility] [address] [place] [address] Dr. Get Charles, HIGH SENSITIVITYon 69-21-9934HIEZKD5.6 pg/mLNormal 4.0-76.1The [facility] on above:Result Comment: CUT-OFF POINTS HAVE BEEN ESTABLISHED BASED ON THE FOURTH UNIVERSAL DEFINITIONS OF MYOCARDIAL INFARCTION. THE UPPER REFERENCE LIMIT (URL) OF TROPONIN, DEFINED THE 99TH PERCENTILE OF cTnI DISTRIBUTION IN A REFERENCE POPULATION, HAS BEEN CONFIRMED THE DECISION THRESHOLD FOR AR DIAGNOSIS.Performed By: #### CMP, HSTROPN, BNP #### [facility] [address] [address] [address] Get WhittenXR CHEST 1 Von 11-30-2214BV CHEST 1 VEXAMINATION: XR CHEST 1 V HISTORY: CHEST PAIN, UNSPECIFIED COMPARISON: [...] Electronically authenticated by: SHEN SOSA Date: 2022-03-23 15:02[facility] SystemCovid-19 PCR (CVDTBH)on 72-71-4016TAXS-CoV-2 (COVID-19) RNA ASHLEE+probe Ql (Unsp spec)DetectedCritically abnormalNOT DETECTEDThe [facility] HospitalComment on above:Result Comment: This test is not yet approved or cleared by the [place] FDA. When there are no FDA-approved or cleared tests available, and other criteria are met, FDA can make tests available under an emergency access mechanism called an Emergency Use Authorization (EUA). The EUA for this test is supported by the Councilman of Health and Human Service's declaration that circumstances exist to justify the emergency use of in vitro diagnostics for the detection and/or diagnosis of the virusthat causes COVID-19. This EUA will remain in effect for the duration of the COVID-19 declaration ju stifying emergency of IVDs, unless it is terminated or revoked by the FDA (after which the test mayno longer be used).Performed By: #### CMP, HSTROPN, BNP #### [facility] [address] [place] [address] Dr. Get Meyer AUTO DIFFon [id number] #0.1 103/ulNormal0.0-0.1The [facility] Centerment on above:Performed By: #### BNP, T7, CMP, TSH #### [facility] [address] [place] [address] Dr. Get WhittenBasophils/100 WBC (Bld)0.6 %Normal0.2-2.0The [facility] Comment on above:Performed By: #### BNP, T7, CMP, TSH #### [facility] [address] [place] [address] Dr. Get Babcock #0.0 103/ulNormal0.0-0.7The [facility] HospitalComment on above: Performed By: #### BNP, T7, CMP, TSH #### [facility] [address] [place] [address] Dr. Get Paytonosinophils/100 WBC (Bld)0.1 %Critically low0.9-7.0The [facility] Centerment on above:Performed By: #### BNP, T7, CMP, TSH #### [facility] [address] [place] [address] Dr. Get Paytonrythrocyte distribution width (RBC) [Ratio]13.1 %Ujrccj15.0-15.0 The [facility] Centerment on above:Performed By: #### BNP, T7, CMP, TSH #### [facility] [address] [place] [address] Dr. Get WhittenHematocrit (Bld) [Volume fraction]41.0 %Critically low42.0-54.0 The [facility] Centerment on above:Performed By: #### BNP, T7, CMP, TSH #### [facility] [address] [place] [address] Dr. Get WhittenHemoglobin (Bld) [Mass/Vol]14.3 g/fWGbboav89.0-18.0The [facility] Centerment on above:Performed By: #### BNP, T7, CMP, TSH #### [facility] [address] [address] [address] Get Sanford #0.25 10e3/ulCritically high0.00-0.03The [facility] Comment on above:Performed By: #### BNP, T7, CMP, TSH #### [facility] [address] [place] [address] Dr. Get Sanford %2.3 %Critically high0.0-0.5The [facility] HospitalComment on above:Performed By: #### BNP, T7, CMP, TSH #### [facility] [address] [place] [address] Dr. Get Otoole #2.4 103/ulNormal1.2-3.8The [facility] HospitalComment on above:Performed By: #### BNP, T7, CMP, TSH #### [facility] [address] [place] [address] Dr. Get Ramirezhocytes/100 WBC (Bld)21.7 %Wqdkry45.5-60.0The [facility] HospitalComment on above:Performed By: #### BNP, T7, CMP, TSH #### [facility] [address] [place] [address] Dr. Get Ace DIFF REQNONormalThe [facility] HospitalComment on above: Performed By: #### BNP, T7, CMP, TSH #### [facility] [address] [place] [address] Dr. Get Fried (RBC) [Entitic mass]37.0 pgCritically high25.9-34.0The [facility] HospitalComment on above:Performed By: #### BNP, T7, CMP, TSH #### [facility] [address] [place] [address] Dr. Get Fried (RBC) [Mass/Vol]34.9 g/sPKsxuko32.9-35.2The [facility] HospitalComment on above:Performed By: #### BNP, T7, CMP, TSH #### [facility] [address] [place] [address] Dr. Get Whitten (RBC) [Entitic vol]105.9 fLCritically high80.0-94.0The [facility] HospitalComment on above:Result Comment: 1+ macrocytosisPerformed By: #### BNP, T7, CMP, TSH #### [facility] [address] [place] [address] Dr. Get Bill #0.8 103/ulNormal0.3-0.8The [facility] HospitalComment on above:Performed By: #### BNP, T7, CMP, TSH #### [facility] [address] [place] [address] Dr. Get Lockettocytes/100 WBC (Bld)7.0 %Normal1.7-12.0The [facility] Comment on above:Performed By: #### BNP, T7, CMP, TSH #### [facility] [address] [place] [address] Dr. Get Falcon #7.5 103/ulCritically high1.4-6.5The [facility] Comment on above:Performed By: #### BNP, T7, CMP, TSH #### [facility] [address] [place] [address] Dr. Get Andersonutrophils/100 WBC (Bld)68.3 %Tmxwhs00.0-75.0The [facility] HospitalComment on above:Performed By: #### BNP, T7, CMP, TSH #### [facility] [address] [place] [address] Dr. Get Castro mean volume (Bld) [Entitic vol]8.6 fLCritically low 9.5-13.5The [facility] HospitalComment on above:Performed By: #### BNP, T7, CMP, TSH #### [facility] [address] [place] [address] Dr. Get WhittenPLT235 103/pgXnmcyw976-666Sja [facility] HospitalComment on above: Performed By: #### BNP, T7, CMP, TSH #### [facility] [address] [place] [address] Dr. Get WhittenRBC3.87 106/ulCritically low4.70-6.10The [facility] HospitalComment on above:Performed By: #### BNP, T7, CMP, TSH #### [facility] [address] [address] [address] Get WhittenWBC11.0 103/ulNormal4.0-11.0The [facility] HospitalComment on above:Performed By: #### BNP, T7, CMP, TSH #### [facility] [address] [address] [address] Get WhittenWEST ELIZABETH OF CARE GLUCOSEon 66-65-2924Bhgiqsy [Mass/Vol]116 mg/dL Critically mbfs57-225Zxz [facility] HospitalComment on above:Performed By: #### CMP #### [facility] [address] [place] [address] Dr. Get WhittenPROF CHEM 8 (BAS METB)on 20-15-7233Msaur gap [Moles/Vol]14.2 mmol/LNormalThe [facility] HospitalComment on above:Performed By: #### BNP, T7, CMP, TSH #### [facility] [address] [address] [address] Get WhittenCalcium [Mass/Vol]8.7 mg/dLNormal8.5-10.1The [facility] Comment on above:Performed By: #### BNP, T7, CMP, TSH #### [facility] [address] [address] [address] Get WhittenChloride [Moles/Vol]99 mmol/WIhjpzg12-367Bnn [facility] Comment on above:Performed By: #### BNP, T7, CMP, TSH #### [facility] [address] [address] [address] Get WhittenCO2 [Moles/Vol]25.1 mmol/KOipdym46.0-32.0The [facility] Comment on above:Performed By: #### BNP, T7, CMP, TSH #### [facility] [address] [address] [address] Get WhittenCreatinine [Mass/Vol]1.24 mg/dLNormal0.70-1.30The [facility] HospitalComment on above:Performed By: #### BNP, T7, CMP, TSH #### [facility] [address] [place] [address] Dr. Get PaytonGFR-AF NICARAGUAN>60Normal>=60The [facility] HospitalComment on above:Performed By: #### BNP, T7, CMP, TSH #### [facility] [address] [place] [address] Dr. Get PaytonGFR-NON AF NICARAGUAN=60Normal>=60The [facility] HospitalComment on above:Performed By: #### BNP, T7, CMP, TSH #### [facility] [address] [place] [address] Dr. Get WhittenGlucose [Mass/Vol]122 mg/dLCritically bxhj44-064Hmr [facility] HospitalComment on above:Performed By: #### BNP, T7, CMP, TSH #### [facility] [address] [place] [address] Dr. Get WhittenPotassium [Moles/Vol]4.3 mmol/LNormal3.5-5.1The [facility] Comment on above:Performed By: #### BNP, T7, CMP, TSH #### [facility] [address] [place] [address] Dr. Get WhittenSodium [Moles/Vol]134 mmol/LCritically now608-400Xql [facility] Centerment on above:Performed By: #### BNP, T7, CMP, TSH #### [facility] [address] [place] [address] Dr. Get WhittenUrea nitrogen [Mass/Vol]7.0 mg/dLNormal7.0-18.0The [facility] HospitalComment on above:Performed By: #### BNP, T7, CMP, TSH #### [facility] [address] [place] [address] Dr. Get WhittenUrea nitrogen/Creatinine [Mass ratio]5.6 mg/mgNormalThe [facility] HospitalComment on above:Performed By: #### BNP, T7, CMP, TSH #### [facility] [address] [place] [address] Dr. Get Charles, HIGH SENSITIVITYon 39-52-5982HPERZY3.1 pg/mLNormal 4.0-76.1The [facility] HospitalComment on above:Result Comment: CUT-OFF POINTS HAVE BEEN ESTABLISHED BASED ON THE FOURTH UNIVERSAL DEFINITIONS OF MYOCARDIAL INFARCTION. THE UPPER REFERENCE LIMIT (URL) OF TROPONIN, DEFINED THE 99TH PERCENTILE OF cTnI DISTRIBUTION IN A REFERENCE POPULATION, HAS BEEN CONFIRMED THE DECISION THRESHOLD FOR AR DIAGNOSIS.Performed By: #### BNP, T7, CMP, TSH #### [facility] [address] [place] [address] Dr. Get WhittenXR CHEST 1 Von [id number] CHEST 1 VEXAM: Chest x-ray HISTORY: . CHEST PAIN, UNSPECIFIED . COMPARISON: 01/09/2022 TECHNIQUE: AP portable upright view of the chest FINDINGS: This is an expiratory chest. Heart and vascularity are unremarkable. Lungs are free of focal infiltrates. EKG leads overlie the chest. IMPRESSION: 1. Expiratory chest. 2. No acute heart or lung disease identified. Electronically authenticated by: JULIO CESAR PARKER Date: 2022-01-24 11:31[facility] SystemBNPon 16-24-7001Nttepywpndy peptide B (Bld) [Mass/Vol]83.0 pg/mLNormal<=900.0The [facility] HospitalComment on above:Performed By: #### CMP, HSTROPN, BNP #### [facility] [address] [place] [address] Dr. Get TateC AUTO DIFFon 19-81-9872XCQV #0.0 103/ulNormal0.0-0.1The [facility] HospitalComment on above:Performed By: #### CMP #### [facility] [address] [place] [address] Dr. Get WhittenBasophils/100 WBC (Bld)0.4 %Normal0.2-2.0[facility] Comment on above:Performed By: #### CMP #### [facility] [address] [place] [address] Dr. Get Babcock #0.0 103/ulNormal0.0-0.7The [facility] HospitalComment on above: Performed By: #### CMP #### [facility] [address] [place] [address] Dr. Get Paytonosinophils/100 WBC (Bld)0.2 %Critically low0.9-7.0The [facility] HospitalComment on above:Performed By: #### CMP #### [facility] [address] [place] [address] Dr. Get Paytonrythrocyte distribution width (RBC) [Ratio]13.1 %Evnfqe93.0-15.[address] [facility] HospitalComment on above:Performed By: #### CMP #### [facility] [address] [place] [address] Dr. Get WhittenHematocrit (Bld) [Volume fraction]41.5 %Critically low42.0-54.[address] [facility] HospitalComment on above:Performed By: #### CMP #### [facility] [address] [place] [address] Dr. Get WhittenHemoglobin (Bld) [Mass/Vol]14.4 g/pEVeombt86.0-18.0The [facility] Centerment on above:Performed By: #### CMP #### [facility] [address] [place] [address] Dr. Get Sanford #0.12 10e3/ulCritically high0.00-0.03The [facility] Comment on above:Performed By: #### CMP #### [facility] [address] [place] [address] Dr. Get Sanford %1.1 %Critically high0.0-0.5The [facility] HospitalComment on above:Performed By: #### CMP #### [facility] [address] [place] [address] Dr. Get HargroveMPH #2.3 103/ulNormal1.2-3.8The [facility] HospitalComment on above:Performed By: #### CMP #### [facility] [address] [place] [address] Dr. Get Hargrovemphocytes/100 WBC (Bld)20.9 %Ypvtuu75.5-60.0The [facility] HospitalComment on above:Performed By: #### CMP #### [facility] [address] [place] [address] Dr. Get Ace DIFF REQNONormalThe [facility] HospitalComment on above: Performed By: #### CMP #### [facility] [address] [place] [address] Dr. Get Fried (RBC) [Entitic mass]37.1 pgCritically high25.9-34.0The [facility] HospitalComment on above:Performed By: #### CMP #### [facility] [address] [place] [address] Dr. Get Fried (RBC) [Mass/Vol]34.7 g/aIJhvsqc50.9-35.2The [facility] HospitalComment on above:Performed By: #### CMP #### [facility] [address] [place] [address] Dr. Get Fried (RBC) [Entitic vol]107.0 fLCritically high80.0-94.0The [facility] HospitalComment on above:Result Comment: 1+ macrocytosisPerformed By: #### CMP #### [facility] [address] [place] [address] Dr. Get Bill #0.7 103/ulNormal0.3-0.8The [facility] HospitalComment on above:Performed By: #### CMP #### [facility] [address] [place] [address] Dr. Get Lockettocytes/100 WBC (Bld)6.3 %Normal1.7-12.0[facility] Comment on above:Performed By: #### CMP #### [facility] [address] [place] [address] Dr. Get Falcon #7.7 103/ulCritically high1.4-6.5The [facility] Comment on above:Performed By: #### CMP #### [facility] [address] [place] [address] Dr. Get WhittenNeutrophils/100 WBC (Bld)71.1 %Ifydhl72.0-75.0The [facility] HospitalComment on above:Performed By: #### CMP #### [facility] [address] [place] [address] Dr. Get WhittenPlatelet mean volume (Bld) [Entitic vol]8.6 fLCritically low 9.5-13.5The [facility] HospitalComment on above:Performed By: #### CMP #### [facility] [address] [place] [address] Dr. Get WhittenPLT238 103/gtZvrrjp790-609Qss [facility] HospitalComment on above: Performed By: #### CMP #### [facility] [address] [place] [address] Dr. Get WhittenRBC3.88 106/ulCritically low4.70-6.10The [facility] HospitalComment on above:Performed By: #### CMP #### [facility] [address] [place] [address] Dr. Get WhittenWBC10.8 103/ulNormal4.0-11.0The [facility] HospitalComment on above:Performed By: #### CMP #### [facility] [address] [place] [address] Dr. Get WhittenCovid-19 PCR ([facility])on 39-45-4325MIHH-CoV-2 (COVID-19) RNA ASHLEE+probe Ql (Unsp spec)Not detectedNormalNOT DETECTEDThe [facility] Comment on above:Result Comment: When diagnostic testing is negative, the [...] for this test is supported by the Councilman of Health and Human Service's declaration that circumstances exist to justify the emergency use of in vitro diagnostics for the detection and/or diagnosis of the virus that causes COVID-19. This EUA will remain in effect for the duration of the COVID-19 declaration justifying emergency of IVDs, unless it is terminated or revoked by the FDA (after which the test may no longer be used).Performed By: #### CMP, HSTROPN, BNP #### [facility] [address] [place] [address] Dr. Get Richards 14(COMP METB)on 45-88-4202Qlneqnx [Mass/Vol]4.0 g/dLNormal 3.4-5.0The [facility] HospitalComment on above:Performed By: #### CMP, HSTROPN, BNP #### [facility] [address] [place] [address] Dr. Get WhittenAlbumin/Globulin [Mass ratio]1.0 {ratio}NormalThe [facility] HospitalComment on above:Performed By: #### CMP, HSTROPN, BNP #### [facility] [address] [place] [address] Dr. Get Saba [Catalytic activity/Vol]90 U/HHhleke35-925Cws [facility] Centerment on above:Performed By: #### CMP, HSTROPN, BNP #### [facility] [address] [place] [address] Dr. Get Pichardo [Catalytic activity/Vol]27 U/NPqyfun47-05Xff [facility] HospitalComment on above:Performed By: #### CMP, HSTROPN, BNP #### [facility] [address] [place] [address] Dr. Get Crow gap [Moles/Vol]12.6 mmol/LNormalThe [facility] Comment on above:Performed By: #### CMP, HSTROPN, BNP #### [facility] [address] [place] [address] Dr. Get Fierro [Catalytic activity/Vol]16 U/THxaaww04-61Wep Meli HospitalComment on above:Performed By: #### CMP, HSTROPN, BNP #### [facility] [address] [address] [address] Get WhittenBilirubin [Mass/Vol]0.4 mg/dLNormal0.2-1.0The [facility] Comment on above:Performed By: #### CMP, HSTROPN, BNP #### [facility] [address] [place] [address] Dr. Get WhittenCalcium [Mass/Vol]8.4 mg/dLCritically low8.5-10.1The [facility] HospitalComment on above:Performed By: #### CMP, HSTROPN, BNP #### [facility] [address] [place] [address] Dr. Get WhittenChloride [Moles/Vol]100 mmol/TUcoaln15-976Bql [facility] Comment on above:Performed By: #### CMP, HSTROPN, BNP #### [facility] [address] [place] [address] Dr. Get WhittenCO2 [Moles/Vol]25.1 mmol/CUypebz67.0-32.0The [facility] Comment on above:Performed By: #### CMP, HSTROPN, BNP #### [facility] [address] [place] [address] Dr. Get WhittenCreatinine [Mass/Vol]1.20 mg/dLNormal0.70-1.30The [facility] HospitalComment on above:Performed By: #### CMP, HSTROPN, BNP #### [facility] [address] [place] [address] Dr. Get PaytonGFR-AF NICARAGUAN>60Normal>=60The [facility] HospitalComment on above:Performed By: #### CMP, HSTROPN, BNP #### [facility] [address] [place] [address] Dr. Get PaytonGFR-NON AF NICARAGUAN>60Normal>=60The [facility] HospitalComment on above:Performed By: #### CMP, HSTROPN, BNP #### [facility] [address] [address] [address] Get WhittenGlobulin (S) [Mass/Vol]4.0 g/dLNormMercy HospitalComment on above:Performed By: #### CMP, HSTROPN, BNP #### [facility] [address] [address] [address] Get WhittenGlucose [Mass/Vol]110 mg/dLCritically igfo57-599Hab [facility] HospitalComment on above:Performed By: #### CMP, HSTROPN, BNP #### [facility] [address] [place] [address] Dr. Get WhittenPotassium [Moles/Vol]4.7 mmol/LNormal3.5-5.1The [facility] Comment on above:Performed By: #### CMP, HSTROPN, BNP #### [facility] [address] [place] [address] Dr. Get WhittenProtein [Mass/Vol]8.0 g/dLNormal6.4-8.2The [facility] Comment on above:Performed By: #### CMP, HSTROPN, BNP #### [facility] [address] [place] [address] Dr. Get WhittenSodium [Moles/Vol]133 mmol/LCritically ivt819-918Aaq [facility] HospitalComment on above:Performed By: #### CMP, HSTROPN, BNP #### [facility] [address] [place] [address] Dr. Get WhittenUrea nitrogen [Mass/Vol]7.0 mg/dLNormal7.0-18.0The [facility] HospitalComment on above:Performed By: #### CMP, HSTROPN, BNP #### [facility] [address] [place] [address] Dr. Get De Jesus nitrogen/Creatinine [Mass ratio]5.8 mg/mgNoRegency Hospital Cleveland EastComment on above:Performed By: #### CMP, HSTROPN, BNP #### [facility] [address] [place] [address] Dr. Get WhittenPROTIMErell 33-95-9168DHB Coag (PPP) [Relative time]{INR}NormalThe [facility] HospitalComment on above:Performed By: #### CVDTBH #### [facility] [address] [place] [address] Dr. Get Monteiro GUIDELINESSEE BELOWNoRegency Hospital Cleveland EastComment on above:Result Comment: DESIRED INR: 2.0 - 3.0 CONDITIONS NOT LISTED BELOW 2.5 - 3.5 FOR PROSTHETIC HEART VALVE REPLACEMENT 2.5 - 3.5 RECURRENT THROMBOSIS Performed By: #### CVDTBH #### [facility] [address] [place] [address] Dr. Get WhittenPT Coag (PPP) [Time]9.8 sNormal9.0-11.6The [facility] Comment on above:Performed By: #### CVDTBH #### [facility] [address] [place] [address] Dr. Get Henley 23-61-2944kVQG Coag (Bld) [Time]28.5 lBmpxsu78.3-36.2[facility] HospitalComment on above:Performed By: #### CMP #### [facility] [address] [place] [address] Dr. Get Charles, HIGH SENSITIVITYon 73-13-8488KZBGIT7.1 pg/mLNormal 4.0-76.1[facility] HospitalComment on above:Result Comment: CUT-OFF POINTS HAVE BEEN ESTABLISHED BASED ON THE FOURTH UNIVERSAL DEFINITIONS OF MYOCARDIAL INFARCTION. THE UPPER REFERENCE LIMIT (URL) OF TROPONIN, DEFINED THE 99TH PERCENTILE OF cTnI DISTRIBUTION IN A REFERENCE POPULATION, HAS BEEN CONFIRMED THE DECISION THRESHOLD FOR AR DIAGNOSIS.Performed By: #### CMP, HSTROPN, BNP #### [facility] [address] [place] [address] Dr. Get WhittenXR CHEST 1 Von 34-78-6251PK CHEST 1 VEXAMINATION: XR CHEST 1 V HISTORY: Chest pain COMPARISON: Chest x-ray 12/18/2021 TECHNIQUE: Portable chest FINDINGS: Stable linear consolidation within the left lower lobe. No acute consolidation or infiltrate. No pneumothorax or pleural effusion. The cardiac, mediastinal and hilar contours are normal. The visualized osseous structures exhibit no gross abnormality. IMPRESSION: No acute cardiopulmonary abnormality. Electronically authenticated by: JULIO CESAR BUTCHER Date: 2022-01-09 18:21[facility] HospitalCoding Summary.on 28-76-8209Nuomqe Summary.CODING DATE: 12/18/2018 [facility] STATUS: Home (Routine DC) PAYOR: Commercial Insurance APC DESCRIPTION 5481 Laser Eye Procedures ADMIT DX: REASON FOR VISIT DX: H26.492 Other secondary cataract, left eye FINAL DX: PRINCIPAL: H26.492 Other secondary cataract, left eye SECONDARY: PYMT PROC APC STAT DESCRIPTION DOCTOR NAME DATE 39803 5481 T Discission of secondary Darnell Rick [...] By: Verona Woodward Date Saved: 12/18/2018 10:51 [facility] Vital Signs Date TimeVital SignValuePerforming SupizypnySjvexxxu86-78-4289 11:17-0400Body mvirwq989.88 cmPee Lakhani MD Work Phone: [facility]08-20-2025 11:17-0400 Body mass index (BMI) [Ratio]28.4 kg/d5NiwjoudPee Lakhani MD Work Phone: [facility]08-20-2025 11:17-0400 Body kgPee Lakhani MD Work Phone: [phone]08-14-2025 11:34-0400 Diastolic blood hnfydhdg29 mm[Hg]Pee Lakhani MD Work Phone: [facility]08-14-2025 11:34-0400 Heart rate60 /minDouglas Hoy MD Work Phone: [phone] [place], [place] 2487808-14-2025 11:34-0400 Respiratory rate15 /Galo Lakhani MD Work Phone: [phone] [place], [place] 2487808-14-2025 11:34-0400 SaO2% (BldA) [Mass fraction]97 %Pee Lakhani MD Work Phone: [phone] [place], [place] 2487808-14-2025 11:34-0400 Systolic blood zgmqyokd730 mm[Hg]Pee Lakhani MD Work Phone: [phone] [place], [place] 2487808-14-2025 04:26-0400 Body ylrdro97 kgDodalia Lakhani MD Work Phone: [phone] [place], [place] 2487808-14-2025 04:00-0400 Body njrsxzotcwc65.6 [degF]Pee Lakhani MD Work Phone: [phone] [place], [place] 2487808-12-2025 08:12-0400 Body .88 cmPee Lakhani MD Work Phone: [phone] [place], [place] 2487806-01-2025 08:24-0400 Body rbvmnikgbyu88.4 [degF]Pee Lakhani MD Work Phone: [phone] [place], [place] 2487806-01-2025 08:24-0400 Diastolic blood tgblivld05 mm[Hg]Pee Lakhani MD Work Phone: [phone] [place], [place] 2487806-01-2025 08:24-0400 Heart rate73 /Galo Lakhani MD Work Phone: [phone] [place], [place] 2487806-01-2025 08:24-0400 Respiratory rate20 /Galo Lakhani MD Work Phone: [phone] [place], [place] 2487806-01-2025 08:24-0400 SaO2% (BldA) [Mass fraction]100 %Pee Lakhani MD Work Phone: [phone] [place], [place] 2487806-01-2025 08:24-0400 Systolic blood mm[Hg]Pee Lakhani MD Work Phone: [phone] [place], [place] 5510906-01-2025 05:53-0400 Body ysybsd535.4 kgPee Lakhani MD Work Phone: [phone]05-29-2025 11:01-0400 Body msojwq260.42 cmPee Lakhani MD Work Phone: [phone] [place], [place] 2487805-21-2025 15:17-0400 Diastolic blood mm[Hg]Pee Lakhani MD Work Phone: [phone])[address]05-21-2025 15:17-0400 Heart rate88 /Galo Lakhani MD Work Phone: [phone] [place], [place] 2487805-21-2025 15:17-0400 Respiratory rate16 /Galo Lakhani MD Work Phone: [phone] [place], [place] 2487805-21-2025 15:17-0400 SaO2% (BldA) [Mass fraction]99 %Pee Lakhani MD Work Phone: [phone] [place], [place] 2487805-21-2025 15:17-0400 Systolic blood hxknseer402 mm[Hg]Pee Lakhani MD Work Phone: [phone] [place], [place] 2487805-21-2025 12:37-0400 Body nvjqkrpiowc58.8 [degF]Pee Lakhani MD Work Phone: [phone] [place], [place] 2487805-21-2025 06:33-0400 Body bbybdb10.5 Paco Lakhani MD Work Phone: [phone]05-20-2025 16:50-0400 Inhaled oxygen flow rate8 L/Galo Lakhani MD Work Phone: [phone] [place], [place] 2487805-20-2025 13:45-0400 Body qtzzdi761.42 Amanda Lakhani MD Work Phone: [phone] Encounters Encounter DateEncounter TypeCare ProviderFacilityStart: 05-13-2025 End: 41-96-9481unoyzqzhkoRhjnwvm M Hoy MD Work Phone: [phone]-Obcsuhdgz Health OrthopedicsStart: 05-13-2025 End: 38-89-7136Ijedxin encounter procedureJasminmando Garayley [facility] Work Phone: Start: 89-57-6828jvjlnwceygYLTEW GRUBBUniversThe MetroHealth Systemtart: 04-24-2025 End: 43-25-0308Jtcrck flowsSt. [facility] PA Work Phone: [facility] DermatologyStart: 04-24-2025 End: 26-99-1206Wolfkd [facility] PA Work Phone: noMS Christian DermatologyStart: 04-24-2025 End: 27-12-1560Qhadvp outpatient visit 15 minutesFrances Jean Baptiste GISSELLE Work Phone: no Anahi DermatologyComment on above:Stasis dermatitis of both legs (Primary Dx); Encounter for removal of sutures; Rash and other nonspecific skin eruptionStart: 04-24-2025 End: 56-71-9839eowojklieeCICRR NORTHEIMNot AvailableStart: 04-13-2025 End: 19-88-5164Srothx flowsSt. Joseph's [facility] PA Work Phone: noMS Christian DermatologyStart: 04-13-2025 End: 81-48-5106Qakxwo [facility] PA Work Phone: [facility] DermatologyStart: 04-13-2025 End: 12-33-4587Omkmgkc encounter procedureAbrahammarcella Wittnorth [facility] PA Work Phone: noMS Purdyy DermatologyComment on above:Rash and other nonspecific skin eruptionStart: 04-13-2025 End: 95-24-6587rntgapjuzyEMLKP NORTHEIMNot AvailableStart: 02-05-3214klryydnaik JYOTI GRUBBUniversThe MetroHealth Systemtart: 03-06-2025 End: 02-37-1786Ylqcya flowsheetRylemarcella [facility] PA Work Phone: noMS Christian DermatologyStart: 03-06-2025 End: 38-14-9732Juspoq [facility] PA Work Phone: noMS Christian DermatologyStart: 03-06-2025 End: 41-05-5099Tjzalz outpatient new 30 minutesRyReynolds County General [facility] PA Work Phone: noMS Christian DermatologyComment on above:Rash and other nonspecific skin eruption (Primary Dx)Start: 03-06-2025 End: 31-23-9294vmoglhzqrtBOUDG [facility] HOSPITALMNot AvailableStart: 03-04-2025 End: 65-79-1489krixrbfsndKklhtqj M Hoy MD Work Phone: [facility] Work Phone: Start: 03-04-2025 End: 49-70-6548Fmxrilo encounter procedureJustin Samra [facility] Work Phone: Start: 02-24-2025 End: 71-02-5790bdcbeyidnkPtdqxhn BlankFacility:[facility] Start: 02-24-2025 End: 70-50-3408Levpyrnjuf and management of inpatientJustin Samra [address] Surgical Work Phone: Start: 02-24-2025 End: 11-25-9774ovgzabesxxh encounterPee Lakhani MD Work Phone: [facility] Work Phone: Start: 80-68-8566Klu-patient / Non-visitAmmon Huang MD-[facility] Infect Dis Work Phone: Start: 60-93-3704ddwocukqspXUNS UC Medical Centertart: 02-11-2025 End: 02-10-2295edaduuaicxCxgtouc M Hoy MD Work Phone: [facility] Work Phone: Start: 02-11-2025 End: 17-51-5994Uxbxvsb encounter procedureJustin Samra Brenna CARBAJALSloop [facility] Work Phone: Start: 02-06-2025 End: 82-08-5764Ifmlmkg encounter procedureJumando Samra Ceja [facility] Work Phone: Start: 02-06-2025 End: 11-77-5893nuganpybchBvgzuak M Hoy MD Work Phone: [facility] Work Phone: Start: 31-54-6142Vumgtqkyu for preprocedural laboratory examinationJumando Cabrales [facility] Physician GroupStart: 21-89-4719qdtjyvgvgyAOZDB GRUBBUniversity [facility] Health [facility] Southtart: 01-12-2025 End: 74-21-4693cgiusnycpuSlkfwtg M Hoy MD Work Phone: [facility] Work Phone: Start: 01-12-2025 End: 69-97-7616Yoiedzk encounter procedureJumando Ceja [facility] Work Phone: Start: 12-22-2024 End: 89-90-1332gawnjdhkwsUdgcomw M Hoy MD Work Phone: [facility] Work Phone: Start: 12-22-2024 End: 53-36-0542Grdcdvo encounter procedurePee Lakhani MD Work Phone: [facility] Physician [facility] Orthopedics Work Phone: Start: 12-82-1353Hiv-patient / Non-visitPee Lakhani MD Work Phone: [facility] Physician [facility] Work Phone: Start: 65-12-9753Cpa-patient / Non-visitPee Lakhani MD Work Phone: [facility] Physician [facility] Work Phone: Start: 12-03-2024 End: 31-90-1518Fesybuchdl and management of inpatientPee Lakhani MD Work Phone: [facility] [place] [facility] Work Phone: Start: 29-14-7248Hqq-patient / Non-visitPee Lakhani MD Work Phone: [facility] Physician [facility] Work Phone: Start: 95-88-6949Mpa-patient / Non-visitPee Lakhani MD Work Phone: [facility] Orthopedics Work Phone: Start: 12-01-2024 End: 25-33-2198Cliwhmbkpg and management of inpatientPee Lakhani MD Work Phone: [facility] Work Phone: Start: 72-25-9406bapehokhqqQCNPRegency Hospital Cleveland Westtart: 65-53-3275qggkpnhyieAPIJS UBOhio Valley Surgical Hospitaltart: 10-01-2024 End: 80-33-7849goxlisosepUCSMLAdena Regional Medical Centertart: 12-28-4143wjxjffypnaEXGDRegency Hospital Cleveland Westtart: 86-02-3152zemvohlvhyLTDRSelect Medical Cleveland Clinic Rehabilitation Hospital, Edwin Shawtart: 21-28-7754lbcckaosvjQQYFV GRUBBUniSalem Regional Medical Centertart: 10-68-0761ylbjztpiemNPRDRegency Hospital Cleveland Westtart: 01-08-2023 End: 18-37-1559sgvuqllehhUzqkghp Vytautas Dejan CARDFacility:[facility] Start: 12-25-2022 End: 40-27-1304plwxbdrpssFkrfxof Vytautas Giedraitis Facility:[facility] Start: 11-27-2022 End: 97-68-3864ydyjnxpjpbLH PEE HOY .Facility:H8Jlvsg: 11-24-2022 End: 90-42-1308oekeutoccfOY PEE HOY .Facility:J3Whhoi: 10-27-2022 End: 60-28-2054sojcsaewoyUY ZAIRE PAY .Facility:K6Kcdww: 10-23-2022 End: 71-62-9007qnsrkruhnmNN PEE HOY .Facility:T4Quftl: 01-76-8526mklonowvtb DR PEE HOY .Facility:D6Liayg: 63-15-7118bjkipytwmwEY PEE HOY . Facility:S3Ccqhn: 98-96-2631zrsyjqvdrfUJ PEE HOY .Facility:P2Nboli: 32-57-8964gvcrjiwiyqUT PEE HOY .Facility:K7Yhaea: 04-15-2022 End: 26-64-2028srrzidykkuCM PEE HOY .Facility:A2Dwaud: 03-29-2022 End: 31-81-5738beurwayeuhXG PEE HOY .Facility:O6Yfwwr: 03-27-2022 End: 62-42-8425Qygirlefuu and management of inpatientDR PEE HOY .Facility:H1 Start: 03-23-2022 End: 69-17-9087ospboeblovXB PEE HOY .Facility:H9Fpbpp: 03-17-2022 End: 67-35-8596olriphydpwXP PEE HOY .Facility:L5Fcjsu: 01-24-2022 End: 91-34-5967pyfwyamejdSX PEE HOY .Facility:Y9Ddctd: 01-09-2022 End: 26-04-4858ymhcakvafiHW ZAIRE PAY .Facility:H1 Procedures DateProcedureProcedure DetailPerforming ClinicianStart: 39-20-9476CQZX / JOCELYNN PITTS Work Phone: Start: 54-87-6584Mpbaiabn of left total hip arthroplastyPee Lakhani MD Work Phone: Start: 37-30-4866Pnldw X-ray of right shoulderDouglas Hoy MD Work Phone: Start: 18-19-9285Ogwqxe scan of lower limb veins Pee Lakhani MD Work Phone: Start: 65-23-5828Lxmhoxvu screenDouglas HoyComment on above:Result Comment: PERFORMED BY: [facility] [place] [id number] PATHOLOGIST [employer]ER CHACORTA DE DIOS M.D.Start: 89-07-8445Xotbb X-ray of right hipPee Lakhani MD Work Phone: Start: 82-44-8654Dbcpy X-ray of right hipDodalia Lesvia CARD Work Phone: Plan of Treatment DateCare ActivityDetailAuthorStart: 06-25-2025 End: 53-68-1167Llogmld encounter dcyrjuflg39/11/2025 10:50 AM EST Office Visit [facility] [address] [place], [phone] Frances Rosen PA [address] [place] [phone] [facility]ermatologyStart: 04-24-2025 End: 65-62-8879Jnmcksz encounter procedureNOMS Anahi DermatologyComment on above:ArrivedStart: 04-13-2025 End: 73-46-0143Yyeutxv encounter procedureNOMS Anahi DermatologyComment on above:ArrivedStart: 03-06-2025 End: 44-99-9313Rtyyqhy encounter /22/2025 12:20 PM EDT Office Visit [facility] [address] [place], [id number] Frances Rosen PA [address] [place] [phone] ArrivedNOMS Christian DermatologyComment on above:ArrivedStart: 80-88-9391BabriaxzpUK Healthcaretart: 51-55-9878Eotntfib to infectious diseases physicianUK Healthcaretart: 43-64-9982Xpeqhpgy admissionUK Healthcaretart: 12-14-3495VheglmpgpUK Healthcaretart: 17-17-4326Mlgat X-ray of right shoulderXR shoulder RT min 2V*[facility]: 51-93-8864UQ Shoulder - right ViewsUK Healthcare[facility]: 17-78-3971GkydbothsUK [facility]: 18-79-7324Ywebmnxy admission [facility]: 66-77-9823Dpjhuupk to clinical global consumer sector vice president [facility]: 48-69-1536VeffwceqmUK [facility]: 35-17-5016Seohcngk to rehabilitation physicianUK Healthcare[facility]: 44-30-9333Setpkswp admissionUK [facility]: 49-48-8252WlylfplnblfbJirxplxafUK Healthcare[facility]: 64-42-8248Ywgsbjnirkz of Right Hip Joint with Metal on Polyethylene Synthetic Substitute, Open ApproachReplacement of Right Hip Joint with Metal on Polyethylene Synthetic Substitute, Open ApproachSt. Rita'S HospitalDermatopathology examDermatopathology exam Pathology and Cytology Timed Rash and other nonspecific skin eruption ReleaseUpon Ordering for 1 Occurrences starting 04/13/2025[facility] Work Phone: comment on above:Release Upon Ordering for 1 Occurrences starting 04/13/2025Patient EducationProm[facility] Work Phone: Patient referralPromedica Memorial Hospital [facility] Work Phone: Payers DatePayer CategoryPayerPolicy [id number] Health Insurance2018MedicareMEDICARE Member Subscriber Plan / Payer (Effective 2018-Present) Name: Rehan Trejo Member ID: [id number] Relation to Subscriber: Self Name: Rehan Trejo Subscriber ID: [id number] Payer ID: STATE Group ID: Not on file Type: Medicare Address: [facility] [place] [id number] [id number] 2.840.1.898675.3.57[id number] 2.0.1.949949.3.57[id number] 2.0.1.203753.3.57[id number] 2.840.1.929736.3.57[id number] 2.840.1.223813.3.57[id number] 2.840.1.501330.3.57[id number] 2.0.1.004607.3.579.2.9[id number] 2.840.1.010941.3.57[id number] 2.840.1.461817.3.579.[id number] 2.840.1.572887.3.579.2.64838-68-9151Ltznnbs0655208 2.840.1.290338.3.57[id number] 2.840.1.301861.3.579.2.65228-02-1402Hgtltvv3944046 2.840.1.028207.3.579.2.20907-42-9980Fbrvmbw1664068 2.840.1.607393.3.57[id number] 2.840.1.287345.3.579.[id number] 2.840.1.150074.3.579.[id number] 2.0.1.404146.3.579.2.99[id number] 2.0.1.466533.3.57[id number] 2.840.1.324685.3.579.[id number] 2.0.1.510879.3.579.2.1259 [id number] 1960Private Health Baywcetwq77099872771-90-2957Dfoc-[id number] 2.840.1.3[id number] 2.840.1.901020.3.579.2.531 [id number] 2.0.1.0[id number] 2.0.1.2[id number] 2.0.1.773108.3.579.2.531 Social History DateTypeDetailFacilityStart: 12-04-2024 End: 52-17-9321Itmgrrh smoking status NHISEx-smoker (finding)[facility]: 12-14-2024 End: 42-51-2940XhdPzvf (finding)[facility]: 20-80-4024Biw Assigned At BirthMiami Valley Hospitaltart: 12-03-2024 End: 54-81-1494CYBX Follow upSDOH [facility] Work Phone: Tobacco smoking status NHISTobacco smoking consumption unknownNOMS HealthcareStart: 69-43-0176Soo assigned at birthNot on fileNOMS HealthcareStart: 03-06-2025 End: 58-70-5362Kusded identityNot on fileAMERICAN FORK HOSPITAL HealthcareHistory of tobacco use Current smokerAMERICAN FORK HOSPITAL HealthcareHistory of tobacco useCigarette SmokerAMERICAN FORK HOSPITAL HealthcareStart: 09-77-0833Fkhiwal use and exposureSmokeless tobacco non-user [facility] HealthcareStart: 03-06-2025 End: 43-33-8428Jbgelyrzr beverage intakeCurrent drinker of alcohol (finding)[facility] HealthcareStart: 03-06-2025 End: 63-30-4430Tvtojpe of Social functionNOPhelps Health Medical Equipment Procedure CodeEquipment CodeEquipment Original TextEquipment IdentifierDates 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Coated hip femur prosthesis, modular()[id number] FDAStart: 12-02-2024 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Acetabular shell ()[id number] FDAStart: 62-45-9626Zrmlxfxhq invasive revision of total replacement of hipCeramic femoral head prosthesis ()[id number] FDAStart: 38-82-0522Pggeftkau invasive revision of total replacement of hipOrthopaedic bone screw, non-bioabsorbable, sterile()[id number] FDAStart: 21-27-0635Icttvejzk invasive revision of total replacement of hipOrthopaedic bone screw, non- bioabsorbable, sterile()[id number] FDAStart: 31-81-7267Szrkvcrvz invasive revision of total replacement of hipNon-constrained polyethylene acetabular liner()[id number] FDAStart: 12-02-2024 Goals DatePatient GoalDesired Activity/State Functional Status MxnoIzwfjuhtviTaexlxInksbcit52-88-3711Autjpxjeof statusPatient at Baseline [facility] Work Phone: 1([phone] 437-900506073614-71-5140Kqkiybahrm statusPatient is Progressing Toward BaselineAdena [facility] Work Phone: 1([phone]mhhdtyr statusPatient at Baseline [facility] Work Phone: Mental Status YtjqElsgpgubeySalmvgIlwyvdhl29-99-4070Srujeyevy functionCognitive Status Patient at [facility] Work Phone: [phone]owurpizt functionCognitive Status Patient at [facility] Work Phone: 1(556) 369-188805275511-18-0309Mitqoapmr functionCognitive Status Patient at [facility] Work Phone: Clinical Notes 10-24-2022 to 04-24-2025 Note Date & GodpYyuhEumgsdax31-41-4773 History of Present illness Narrative* GISSELLE Vásquez - 04/24/2025 11:20 AM EDT Follow up / Suture removal Patient here for suture removal: No complaints of redness, drainage or swelling at site, compliant with wound care. Location: left lower leg-anterior Procedure Performed: Punch biopsy Date of Procedure: 04/13/2025 Diagnosis: Rash unspecified Location(s): generalized Current treatment: TAC 0.1% and antihistamine Previous treatment tried/failed: ivermectin 3mg and Prednisone All pertinent medical history, medications, and allergies were reviewed. General Exam: alert, oriented to person, place, and time, normal affect, well appearing uses crutches Accompaniedby spouse A focused exam completed based on patient reported problems, see below: Skin Exam 1. RASH AND OTHER NONSPECIFIC SKIN ERUPTION Left Forearm - Posterior, Left Upper Back, Neck - Posterior, Right Forearm - Posterior, Right UpperBack [place] patches and plaques Discussed with patient that biopsy results do not explain why upper back and forearms have a rash. Will have hi treat these areas with TAC ointment bid until follow up. If this is unsuccessful, will request that we do another biopsy of the upper body to rule out atopic dermatitis vs. Drug exanthem vs. Contact dermatitis. Related Medications ivermectin (Stromectol) 3 MG tablet Take 6 tablets today and repeat in 1 week 2. ENCOUNTER FOR REMOVAL OF SUTURES Left Lower Leg - Anterior Sutures are intact, Skin edges are well-approximated, Mild erythema along incision line, Mild erythema along incision line Suture Removal: Procedure: Sutures removed without difficulty. Post-Procedure instructions: Instructed to discontinue wound care., Pathology results discussed. 3. STASIS DERMATITIS OF BOTH LEGS Left Lower Leg - Anterior, Right Lower Leg - Anterior [place] scaly plaques in areas of edema The patient was informed that stasis dermatitis is a chronic rash on the lower legs due to swellingoften caused by poor circulation. The patient was instructed to keep the legs elevated when seated,avoid standing for long periods of time, and to wear compression stockings. Change to Triamcinoloneointment 0.1% bid prn when flared, hold if clear. Notify clinic if failing to improve despite treatm ent. Follow up in 4-6 weeks. Related Medications triamcinolone (Kenalog) 0.1 % ointment Apply (1g) to affected areas (legs/arms), up to twice a day when flared, do not use one the face, groin, or underarms, 30 day supply Next Visit: 4-6 weeks documented in this encounterShriners Hospitals for ChildrenQdccjlrpna92-09-5280 History of Present illness Narrative* GISSELLE Vásquez - 04/13/2025 11:10 AM EDT Images from the original note were not [...] SKIN ERUPTION Left Lower Leg - Anterior [place] patches and plaques Biopsy today, see procedure note. Patient not improved with oral Ivermectin and prednisone. Continue with TAC and oral antihistamine. Follow up in 10-14 days Lesion biopsy - Left Lower Leg - Anterior Type of biopsy: punch Informed consent: discussed and consent obtained Informed consent comment: The risks and benefits were discussed. Risks include, but are not limitedto, bleeding, infection, scarring, pain, & nerve damage. [...] Next Visit: Suture removal documented in this encounterShriners Hospitals for ChildrenGpmcqqncrp38-06-8293 History of Present illness Narrative* GISSELLE Vásquez - 03/06/2025 12:20 PM EDT Images from the original note were not [...] time, normal affect, well appearing uses crutches Accompaniedby spouse A focused exam completed based on [...] TAC 0.1% bid on areas until clear. Willfollow up in 3-4 weeks. If not improving, will plan to biopsy. ivermectin (Stromectol) 3 MG tablet Take 6 tablets today and repeat in 1 week triamcinolone (Kenalog) 0.1 % cream Apply (1g) to affected areas (legs/arms), up to twice a day when flared, do not use one the face, groin, or underarms, 30 day supply Next Visit: 3-4 weeks documented in this encounterShriners Hospitals for ChildrenHetnrcdpkt16-02-6060 Progress note Author Ammon Huang [facility] HospitalNote Date/TimeAugust 2024 9:[address] [address] Infect. Disease Progress Note Signed Patient: Rehan Trejo MR#: [id number] : 1965 Acct:[id number] Age/Sex: 60 / M Adm Date: 5 Loc: 4N Room: [address] [place] [address] Type: ADM INOo Attending Dr: Nishant Ceja [...] 324 Mg Tablet.) 324 mg PO BID.WITH.MEALS [facility] Stop: 02/23/26 16:59 Last Admin: 02/25/25 17:01 Dose: 324 mg Isosorbide Mononitrate (Isosorbide Mononitrate 24hr Er 30 Mg Tab.Er.24h) 30 mg PO QAM [facility] Stop: 02/25/26 08:59 Last Admin: 02/25/25 08:06 Dose: 30 mg Levothyroxine Sodium (Levothyroxine 125 Mcg Tablet) 250 mcg PO DAILY@0630 [facility] Stop: 02/25/26 09:59 Last Admin: 02/26/25 04:31 Dose: 250 mcg Melatonin (Melatonin 3 Mg Tablet) 12 mg PO QHS [facility] Stop: 02/25/26 21:59 Last Admin: 02/25/25 20:59 Dose: 12 mg Metoprolol Tartrate (Metoprolol Tartrate 50 Mg Tablet) 50 mg PO BID [facility] Stop: 02/25/26 08:59 Last Admin: 02/25/25 20:58 Dose: 50 mg Mineral Oil (Mineral Oil ([place]) 1 Each Enema) [address] ONCE PRN PRN Reason: Constipation Morphine Sulfate [...] <Electronically signed by MD Ammon Huang> 02/26/25921 [facility] Work Phone: 1(937) 661-896808-14-2025 Progress note Author Nishant Ceja [facility] HospitalNote Date/TimeAugust 2024 9:04[place] [id number] Orthopedic Progress Note Signed Patient: Rehan Trejo MR#: [id number] : 1965 Acct:[id number] Age/Sex: 60 / M Adm Date: 5 Loc: 4N Room: 0M0452-8 Type: ADM INOo Attending Dr: Nishant Ceja [...] DC today Documented By: Nishant Ceja DO 02/26/25 0836 Signed By: <Electronically signed by Nishant Ceja DO> 02/26/25 0904 [facility] Work Phone: 1(852) 948-419908-14-2025 Discharge summary Author Nishant Ceja [facility] HospitalNote Date/TimeAugust 2024 8:40[place] [address] Discharge Summary Signed Patient: Rehan Trejo MR#: [id number] : 1965 Acct:[id number] Age/Sex: 60 / M Adm Date: 5 Loc: 4N Room: 0C9533-[address]: Nishant Ceja DO Copies to: [...] feel free to call our office at [phone]. You are a priority of ours and we will not be upset with you if you call. Wewould much rather you call to confirmaspects of your recovery process as opposed to possibly hindering your recovery with inappropriate care. We are committed to providing you with the best care possible. Dr. Nishant Ceja [facility] [address] [place] [address] [email or web address] Instructions: Know your Meds, Drugs, Alcohol & [...] signed by Nishant Ceja DO> 02/26/25 0840 [facility] Work Phone: 1(676) 785-503308-14-[address] [address] Infect. Disease Progress Note Signed Patient: Rehan Trejo MR#: [id number] : 1965 Acct:[id number] Age/Sex: 60 / M Adm Date: 5 Loc: 4N Room: 8J9155-1 Type: ADM INOo Attending Dr: Nishant Ceja [...] 500 Mg Tablet) 500 mg PO BID.WITH.MEALS [facility] Stop: 02/23/26 16:59 Last Admin: 02/25/25 17:01 [...] 324 Mg Tablet.) 324 mg PO BID.WITH.MEALS [facility] Stop: 02/23/26 16:59 Last Admin: 02/25/25 17:01 Dose: 324 mg Isosorbide Mononitrate (Isosorbide Mononitrate 24hr Er 30 Mg Tab.Er.24h) 30 mg PO QAM [facility] Stop: 02/25/26 08:59 Last Admin: 02/25/25 08:06 [...] Dose: 50 mg Mineral Oil (Mineral Oil ([place]) 1 Each Enema) [address] ONCE PRN PRN Reason: Constipation Morphine Sulfate [...] Ammon Huang MD 02/26/25917 Signed By: 02/26/25921 [facility]2025 [place] [address] Orthopedic Progress Note Signed Patient: Rehan Trejo MR#: [id number] : 1965 Acct:[id number] Age/Sex: 60 / M Adm Date: 5 Loc: 4N Room: [address] [place] [address] Type: ADM INOo Attending Dr: Nishant Ceja [...] once this is cleared up. Wasunable to CT due to social situation yesterday. CT today Documented By: Nishant Ceja DO 02/26/25 0836 Signed By: 02/26/[address] [facility]08-14-2025 [place] [id number] Discharge Summary Signed Patient: Rehan Trejo MR#: [id number] : 1965 Acct:[id number] Age/Sex: 60 / M Adm Date: 5 Loc: Room: [address] [place] [address]: Nishant Ceja DO Copies to: [...] feel free to call our office at [phone]. You are a priority of ours and we will not be upset with you if you call. Wewould much rather you call to confirmaspects of your recovery process as opposed to possibly hindering your recovery with inappropriate care. We are committed to providing you with the best care possible. Dr. Nishant Ceja [facility] [address] [place] [address] [email or web address] Instructions: Know your Meds, Drugs, Alcohol & [...] Nishant Ceja DO 02/26/25 0838 Signed By: 02/26/[address] [facility]08-13-2025 Progress note Author Nishant Ceja [facility] HospitalNote Date/TimeAugust 2024 10:09am [place] [address] Orthopedic Progress Note Signed Patient: Rehan Trejo MR#: [id number] : 1965 Acct:[id number] Age/Sex: 60 / M Adm Date: 5 Loc: 4N Room: 8X2695-4 Type: ADM INOo Attending Dr: Nishant Ceja [...] 53.6 49.4 Lymph % (Auto) 29.7 31.0 [place] % (Auto) 8.8 10.5 Eos % (Auto) 6.7 8.6 Baso % (Auto) 1.2 0.5 Nucleat RBC Rel Count 0.2 0.1 Neut # (Auto) 4.7 3.4 Lymph # (Auto) 2.6 2.1 [place] # (Auto) 0.8 0.7 Eos # (Auto) [...] signed by Nishant Ceja DO> 02/25/25 1009 [facility] Work Phone: 1([phone]) 668-615408-13-2025 Progress note Author Ammon Huang [facility] HospitalNote Date/TimeAugust 2024 8:54[place], [place] [address] Infect. Disease Progress Note Signed Patient: Rehan Trejo MR#: [id number] : 1965 Acct:[id number] Age/Sex: 60 / M Adm Date: 5 Loc: 4N Room: 0P2611-2 Type: ADM INOo Attending Dr: Nishant Ceja [...] 500 Mg Tablet) 500 mg PO BID.WITH.MEALS [facility] Stop: 02/23/26 16:59 Last Admin: 02/25/25 08:05 [...] 100 Mg Capsule) 100 mg PO BID [facility] Stop: 02/23/26 20:59 Last Admin: 02/25/25 08:06 Dose: Not Given Ferrous Sulfate (Ferrous Sulfate 324 Mg Tablet.) 324 mg PO BID.WITH.MEALS [facility] Stop: 02/23/26 16:59 Last Admin: 02/25/25 08:05 Dose: 324 mg Isosorbide Mononitrate (Isosorbide Mononitrate 24hr Er 30 Mg Tab.Er.24h) 30 mg PO QAM [facility] Stop: 02/25/26 08:59 Last Admin: 02/25/25 08:06 Dose: 30 mg Levothyroxine Sodium (Levothyroxine 125 Mcg Tablet) 250 mcg PO DAILY@0630 [facility] Stop: 02/25/26 09:59 Melatonin (Melatonin 3 Mg Tablet) 12 mg PO QHS [facility] Stop: 02/25/26 21:59 Metoprolol Tartrate (Metoprolol Tartrate 50 Mg Tablet) 50 mg PO BID [facility] Stop: 02/25/26 08:59 Last Admin: 02/25/25 08:05 Dose: 50 mg Mineral Oil (Mineral Oil ([place]) 1 Each Enema) [address] ONCE PRN PRN Reason: Constipation Morphine Sulfate [...] 0.4 Mg Cap.Er.24h) 0.4 mg PO DAILY [facility] Stop: 02/25/26 08:59 Last Admin: 02/25/25 08:06 Dose: 0.4 mg Temazepam (Temazepam 7.5 Mg Capsule) 7.5 mg PO QHS PRN PRN Reason: Insomnia Stop: 08/22/25 15:37 Tizanidine HCl (Tizanidine 4 Mg Tablet) 4 mg PO HS [facility] Stop: 02/25/26 21:59 Topiramate (Topiramate 100 Mg Tablet) 100 mg PO QAM [facility] Stop: 02/25/26 08:59 Last Admin: 02/25/25 08:14 Dose: 100 mg Topiramate (Topiramate 100 Mg Tablet) 200 mg PO HS [facility] Stop: 02/25/26 21:59 Tramadol HCl (Tramadol 50 [...] Ammon Huang MD 02/25/25 0847 Signed By: <Electronically signed by MD Ammon Huang> 02/25/25 0854 [facility] Work Phone: 1(416) 395-268908-13-2025 [place] [address] Orthopedic Progress Note Signed Patient: Rehan Trejo MR#: M [id number] : 1965 Acct:[id number] Age/Sex: 60 / M Adm Date: 5 Loc: Room: 8S6172-6 Type: ADM INOo Attending Dr: Nishant Ceja [...] 53.6 49.4 Lymph % (Auto) 29.7 31.0 [place] % (Auto) 8.8 10.5 Eos % (Auto) 6.7 8.6 Baso % (Auto) 1.2 0.5 Nucleat RBC Rel Count 0.2 0.1 Neut # (Auto) 4.7 3.4 Lymph # (Auto) 2.6 2.1 [place] # (Auto) 0.8 0.7 Eos # (Auto) [...] DO 02/25/25 1007 Signed By: 02/25/[address] [facility]08-13-2025 [place] [id number] Infect. Disease Progress Note Signed Patient: Rehan Trejo MR#: [id number] : 1965 Acct:[id number] Age/Sex: 60 / M Adm Date: 5 Loc: 4N Room: [address] [place] [address] Type: ADM INOo Attending Dr: Nishant Ceja [...] 10 Mg Tablet) 10 mg PO HS [facility] Stop: 02/25/26 21:59 Calcium Carbonate (Calcium Carbonate/Vitamin [...] mcg PO DAILY@0630 [facility] Stop: 02/25/26 09:59 Melatonin (Melatonin 3 Mg Tablet) 12 mg PO QHS [facility] Stop: 02/25/26 21:59 Metoprolol Tartrate (Metoprolol Tartrate 50 Mg Tablet) 50 mg PO BID [facility] Stop: 02/25/26 08:59 Last Admin: 02/25/25 08:05 Dose: 50 mg Mineral Oil (Mineral Oil ([place]) 1 Each Enema) [address] ONCE PRN PRN Reason: Constipation Morphine Sulfate [...] MD 02/25/25 0847 Signed By: 02/25/[address] [facility]08-12-2025 Consult note Author mAmon Huang [facility] HospitalNote Date/TimeAugust 2024 10:46am [place] [address] Infect. Disease Consult Note Signed Patient: Rehan Trejo MR#: M [id number] : 1965 Acct:[id number] Age/Sex: 60 / M Adm Date: 5 Loc: 4N Room: 3S6924-6 Type: REG [facility] Attending Dr: Nishant Ceja DO Copies to: [...] negative unless noted below or in HPI [facility] Medical History (Updated 02/24/25 @ 10:45 by [...] Ringers) 1,000 mls @ 75 mls/hr IV .[id number] [facility] Stop: 02/23/26 15:44 Lactated Ringer's (Lactated Ringers) 1,000 mls @ 20 mls/hr IV .Q24H ONE Stop: 02/25/25 08:29 Last Infusion: 02/24/25 09:20 Dose: 20 mls/hr Mineral Oil (Mineral Oil ([place]) 1 Each Enema) [address] ONCE PRN PRN Reason: Constipation Morphine Sulfate [...] 17 Gm Powd.Pack) 17 gm PO DAILY [facility] Stop: 03/03/25 08:59 Prochlorperazine Maleate (Prochlorperazine Maleate 5 Mg Tablet) 10 mg PO Q6H PRN PRN Reason: Nausea Stop: 02/23/26 15:37 Senna/Docusate Sodium (Sennosides/Docusate 8.6-50mg 1 Tab Tablet) 2 tab PO DAILY [facility] Stop: 03/26/25 08:59 Sodium Chloride (Sodium Chloride 0.9 % 10 Ml Syringe) 0 ml IV-PUSH PRN PRN PRN Reason: Flush Stop: 02/24/26 07:30 Temazepam (Temazepam 7.5 Mg Capsule) 7.5 mg PO QHS PRN PRN Reason: Insomnia Stop: 08/22/25 15:37 Tramadol HCl (Tramadol 50 Mg Tablet) 50 mg PO Q6H PRN PRN Reason: Pain Scale 1 - 5 Stop: 02/07/26 15:37 Triamcinolone Acetonide (Triamcinolone 0.5% Cream 15 [...] / 100 mls/hr IV .Q24H ONE Rx#: [id number] Other: Weight 93.44 kg Date of Last [...] <Electronically signed by MD Ammon Huang> 02/24/25 1084 [facility] Work Phone: 1(861) 998-943508-12-2025 Evaluation note* Diagnosis Onset Date Resolution Status Admit Date Stasis dermatitis acuteAugust 2024 10:17amCellulitis of right lower extremitydeletedAugust 2024 10:17amAvascular necrosis of bone of right hipacuteAugust 2024 11:08amAvascular necrosis of left femuracuteAugust 2024 11:08amClosed subcapital fracture of right femuracuteAugust 2024 11:08amRashacuteAugust 2024 11:08amRight shoulder painacuteAugust 2024 11:08amStatus post total hip replacement, rightnoneactiveAugust 2024 11:08amAvascular necrosis of bone of right hipacuteOctober 2024 2:41pmAvascular necrosis of left femuracuteOctober 2024 2:41pmClosed subcapital fracture of right femuracuteOctober 2024 2:41pmRashacuteOctober 2024 2:41pmRight shoulder painacuteOctober 2024 2:41pmStatus post total hip replacement, rightnoneactiveOctober 2024 2:41pm [facility] Work Phone: 1(370) 106-376508-12-2025 History and physical note Author Nishant Ceja [facility] HospitalNote Date/TimeAugust 2024 9:35[place] [address] Orthopedic Surgery H&P Signed Patient: Rehan Trejo MR#: M [id number] : 1965 Acct:[id number] Age/Sex: 60 / M Adm Date: 5 Loc: [place] Room: Type: [facility] Attending Dr: Nishant Ceja DO Copies [...] using some topical steroid cream without resolution [facility] Medical History (Updated 02/24/25 @ 09:35 by [...] and examination with the patient in office tod ay. Prior medical notes and history have been [...] signed by Nishant Ceja DO> 02/24/25 0935 [facility] Work Phone: 1(126) 193-511408-12-2025 [place] [address] Infect. Disease Consult Note Signed Patient: Rehan Trejo MR#: M [id number] : 1965 Acct:[id number] Age/Sex: 60 / M Adm Date: 5 Loc: 4 Room: 8K0449-4 Type: REG [facility] Attending Dr: Nishant Ceja DO Copies to: [...] negative unless noted below or in HPI [facility] Medical History (Updated 02/24/25 @ 10:45 by [...] 500 Mg Tablet) 500 mg PO BID.WITH.MEALS [facility] Stop: 02/23/26 16:59 Aspirin (Aspirin 81 Mg Tablet.) 81 mg PO BID [facility] Stop: 02/23/26 20:59 Diphenhydramine HCl (Diphenhydramine 25 Mg Capsule) 25 mg PO Q6H PRN PRN Reason: Itching Stop: 02/23/26 15:37 Docusate Sodium (Docusate 100 Mg Capsule) 100 mg PO BID [facility] Stop: 02/23/26 20:59 Ferrous Sulfate (Ferrous Sulfate 324 Mg Tablet.) 324 mg PO BID.WITH.MEALS [facility] Stop: 02/23/26 16:59 Lactated Ringer's (Lactated Ringers) 1,000 mls @ 75 mls/hr IV .[id number] [facility] Stop: 02/23/26 15:44 Lactated Ringer's (Lactated Ringers) 1,000 mls @ 20 mls/hr IV .Q24H ONE Stop: 02/25/25 08:29 Last Infusion: 02/24/25 09:20 Dose: 20 mls/hr Mineral Oil (Mineral Oil ([place]) 1 Each Enema) [address] ONCE PRN PRN Reason: Constipation Morphine Sulfate [...] 15 Gm Tube) 1 applic TOPICAL BID [facility] Stop: 02/24/26 10:44 Exam Physical Exam Vital [...] / 100 mls/hr IV .Q24H ONE Rx#: [id number] Other: Weight 93.44 kg Date of Last [...] MD 02/24/25 1040 Signed By: 02/24/[address] [facility]08-12-2025 [place] [address] Orthopedic Surgery H&P Signed Patient: Rehan Trejo MR#: M [id number] : 1965 Acct:[id number] Age/Sex: 60 / M Adm Date: 5 Loc: [place] Room: Type: [facility] Attending Dr: Nishant Ceja DO Copies [...] using some topical steroid cream without resolution [facility] Medical History (Updated 02/24/25 @ 09:35 by [...] DO 02/24/25 0933 Signed By: 02/24/[address] [facility]05-30-2025 Progress note Author Paco Jimenez [facility] HospitalNote Date/TimeMay 2024 1:16[place] [address] Physiatry(Rehab) Progress Note Signed Patient: Rehan Trejo MR#: M [id number] : 1965 Acct:[id number] Age/Sex: 59 / M Adm Date: 5 Loc: Room: [address] [place] [address] Type: ADM IN Attending Dr: Paco Jimenez [...] at homecaring for his , mother and olqono-bv-ztw. Shares insight into mechanism of injury of [...] mg 12/03/24 16:45 Bisacodyl [address] 12/03/25 16:44 DAILY PRN Constipation Budesonide/Formoterol Fumarate [...] 16:45 Docusate Enema 283 Mg/[address] 12/03/25 16:44 DAILY PRN Constipation Isosorbide Mononitrate [...] at least 3 times weekly encounters with oil refiner for medical management and for plan of care review / changes. I spent 25 minutes for services, including tken-qd-tulm encounter with the patient, discussion of the case, plan of care, and exam; and zckknpm-kx-omly activities, such as reviewing pertinent child development consultant documentation, recent therapynotes, laboratory and radiology studies, and discussion of case with care team including physician, nursing, case planner, and therapists. More than 50 % of time was spent on patient/family counseling or coordination ofcare. Documented By: Paco Jimenez MD 1315 Signed By: <Electronically signed by Paco Jimenez MD> 12/12/24 1316 [facility] Work Phone: 1(813) 158-614905-30-2025 [place] [address] Physiatry(Rehab) Progress Note Signed Patient: Rehan Trejo MR#: [id number] : 1965 Acct:[id number] Age/Sex: 59 / M Adm Date: 5 Loc: Room: 0L8982-5 Type: ADM IN Attending Dr: Paco Jimenez [...] at homecaring for his , mother and kypzvf-kz-nic. Shares insight into mechanism of injury of [...] mg 12/03/24 16:45 Bisacodyl [address] 12/03/25 16:44 DAILY PRN Constipation Budesonide/Formoterol Fumarate [...] 16:45 Docusate Enema 283 Mg/[address] 12/03/25 16:44 DAILY PRN Constipation Isosorbide Mononitrate [...] 12/12/24 07:46 Topiramate 100 Mg Tablet PO 05/22/26 08:59 100 mg QAM CHRISTOPHER Administration Topiramate [...] at least 3 times weekly encounters with oil refiner for medical management and for plan of care review / changes. I spent 25 minutes for services, including oxzy-ie-btik encounter with the patient, discussion of the case, plan of care, and exam; and cdgzstb-bj-isvw activities, such as reviewing pertinent child development consultant documentation, recent therapynotes, laboratory and radiology studies, and discussion of case with care team including physician, nursing, case planner, and therapists. More than 50 % of time was spent on patient/family counseling or coordination ofcare. Documented By: Paco Jimenez MD 1314 Signed By: 12/12/[address] [facility]05-30-2025 Radiology Diagnostic study note [facility] Main [place] [address] [place], [place] [id number] Ultrasound Report Signed Patient: Rehan Trejo MR#: [id number] : 1965 Acct:[id number] Age/Sex: 59 / M ADM Date: 5 Loc: Room: 9K0753-0 Type: ADM IN Attending Dr: Paco Jimenez MD Ordering Provider: Gloria Arrington APRN Date of Service: 12/10/24 US/US venous duplex LE RT: swelling, postop Copies to: MD Gloria Silva, HAIR [employer]ON MANAGER~ RIGHT LOWER EXTREMITY VENOUS DUPLEX INDICATION: Painful [...] Donnelly M.D. 12/12/2024 11:17 AM Dictation Location: [id number]-DOC-04 Tech: Ana Rosa Esqueda Transcribed By: NORI 12/12/241116 Dictated By: Zaire Donnelly MD 12/12/241116 Signed By: 12/12/241116 [facility] Work Phone: 1(573) 237-652705-29-2025 Progress note Author Reshma Marin [facility] Date/TimeMay 2024 5:24pm[address] [address] Hospitalist Progress Note Signed Patient: Rehan Trejo MR#: [id number] : 1965 Acct:[id number] Age/Sex: 59 / M Adm Date: 5 Loc: Room: 7C0054-6 Type: ADM IN Attending Dr: Paco Jimenez [...] mg 12/03/24 16:45 Bisacodyl [address] 12/03/25 16:44 DAILY PRN Constipation Budesonide/Formoterol Fumarate [...] 16:45 Docusate Enema 283 Mg/[address] 12/03/25 16:44 DAILY PRN Constipation Isosorbide Mononitrate [...] 2. Hyperlipidemia?atorvastatin 3. COPD/asthma?budesonide/formoterol 4. CAD history AR?isosorbide, metoprolol, aspirin 5. Hypothyroid?levothyroxine 6. BPH?tamsulosin 7. Seizures?Topiramate Documented By: Reshma Marin APRN 12/11/24 1633 Signed By: <Electronically signed by KB Marin> 12/11/24 1646 <Electronically signed by Connor Oliveros DO> 12/11/24 5394 [facility] Work Phone: 1(452) 544-650405-29-2025 [place] [address] Hospitalist Progress Note Signed Patient: Rehan Trejo MR#: [id number] : 1965 Acct:[id number] Age/Sex: 59 / M Adm Date: 5 Loc: Room: [address] [place] [address] Type: ADM IN Attending Dr: Paco Jimenez [...] mg 12/03/24 16:45 Bisacodyl [address] 12/03/25 16:44 DAILY PRN Constipation Budesonide/Formoterol Fumarate [...] 16:45 Docusate Enema 283 Mg/[address] 12/03/25 16:44 DAILY PRN Constipation Isosorbide Mononitrate [...] 2. Hyperlipidemia?atorvastatin 3. COPD/asthma?budesonide/formoterol 4. CAD history AR?isosorbide, metoprolol, aspirin 5. Hypothyroid?levothyroxine 6. BPH?tamsulosin 7. Seizures?Topiramate Documented By: Reshma Marin APRN 12/11/24 1633 Signed By: 12/11/24 1646 12/11/[address] [facility]05-29-2025 Progress note Author Paco Jimenez [facility] Date/TimeMay 2024 12:44pm[address] [address] Physiatry(Rehab) Progress Note Signed Patient: Rehan Trejo MR#: [id number] : 1965 Acct:[id number] Age/Sex: 59 / M Adm Date: 5 Loc: Room: 3F4294-0 Type: ADM IN Attending Dr: Paco Jimenez [...] at homecaring for his , mother and asndva-ns-sjm. Shares insight into mechanism of injury of [...] mg 12/03/24 16:45 Bisacodyl [address] 12/03/25 16:44 DAILY PRN Constipation Budesonide/Formoterol Fumarate [...] 16:45 Docusate Enema 283 Mg/[address] 12/03/25 16:44 DAILY PRN Constipation Isosorbide Mononitrate [...] at least 3 times weekly encounters with oil refiner for medical management and for plan of care review / changes. I spent 25 minutes for services, including msdt-mu-vjhi encounter with the patient, discussion of the case, plan of care, and exam; and zxrkoyh-xc-xpfb activities, such as reviewing pertinent child development consultant documentation, recent therapynotes, laboratory and radiology studies, and discussion of case with care team including physician, nursing, case planner, and therapists. More than 50 % of [...] <Electronically signed by MD ANÍBAL Tracy> 12/11/24 1151 [facility] Work Phone: 1(156) [phone] [place] [address] Physiatry(Rehab) Progress Note Signed Patient: Rehan Trejo MR#: [id number] : 1965 Acct:[id number] Age/Sex: 59 / M Adm Date: 5 Loc: Room: [address] [place] [address] Type: ADM IN Attending Dr: Paco Jimenez [...] at homecaring for his , mother and icndmi-fl-xiy. Shares insight into mechanism of injury of [...] mg 12/03/24 16:45 Bisacodyl [address] 12/03/25 16:44 DAILY PRN Constipation Budesonide/Formoterol Fumarate [...] 16:45 Docusate Enema 283 Mg/[address] 12/03/25 16:44 DAILY PRN Constipation Isosorbide Mononitrate [...] at least 3 times weekly encounters with oil refiner for medical management and for plan of care review / changes. I spent 25 minutes for services, including wocv-ly-lnig encounter with the patient, discussion of the case, plan of care, and exam; and srfwzbr-zj-ivsz activities, such as reviewing pertinent child development consultant documentation, recent therapynotes, laboratory and radiology studies, and discussion of case with care team including physician, nursing, case planner, and therapists. More than 50 % of [...] 1127 Signed By: 12/11/24 1244 12/11/[address] [facility]05-28-2025 Progress note Author Gloria Arrington [facility] Date/TimeMay 2024 1[place] [address] Physiatry(Rehab) Progress Note Signed Patient: Rehan Trejo MR#: [id number] : 1965 Acct:[id number] Age/Sex: 59 / M Adm Date: 5 Loc: Room: [address] [place] [address] Type: ADM IN Attending Dr: Paco Jimenez [...] at homecaring for his , mother and szogdz-bf-psl. Shares insight into mechanism of injury of [...] mg 12/03/24 16:45 Bisacodyl [address] 12/03/25 16:44 DAILY PRN Constipation Budesonide/Formoterol Fumarate [...] 16:45 Docusate Enema 283 Mg/[address] 12/03/25 16:44 DAILY PRN Constipation Doxycycline Hyclate [...] to rule out a DVT. - Samantha wrap/LEONIDES hose to the right leg to help [...] at least 3 times weekly encounters with oil refiner for medical management and for plan of care review / changes. I spent 19 minutes for services, including huqd-hq-egqj encounter with the patient, discussion of the case, plan of care, and exam; and nftwfae-wi-yevy activities, such as reviewing pertinent child development consultant documentation, recent therapynotes, laboratory and radiology studies, and discussion of case with care team including physician, nursing, case planner, and therapists. More than 50 % of time was spent on patient/family counseling or coordination ofcare. <Statement entered by Paco Jimenez MD - 12/10/24 13:56> Patient was personally seen by me, Dr. Jimenez, on the day of encounter, reviewed the history and the relevant portions of the chart, including current orders, allied health and child development consultant notes, labs/imaging and performed ulloa elements of exam and I formulated the plan of care and facilitated the medical decision making. I completed a substantive portion of this encounter, the medical decision makingportion of this note in its entirety, including Allied health note review, nursing note review, child development consultant note review,discussion with nursing and case management, and more than 50% of my time was spent on counseling and coordination of care, time spent 20 minutes Documented By: Gloria Arrington APRN 12/10/24 0 959 Signed By: <Electronically signed by KB Arrington> 12/10/24 1003 <Electronically signed by Paco Jimenez MD> 12/10/24 1356 [facility] Work Phone: 1(996) 761-543605-28-2025 [place] [address] Physiatry(Rehab) Progress Note Signed Patient: Rehan Trejo MR#: [id number] : 1965 Acct:[id number] Age/Sex: 59 / M Adm Date: 5 Loc: Room: [address] [place] [address] Type: ADM IN Attending Dr: Paco Jimenez [...] at homecaring for his , mother and feprbx-tc-gug. Shares insight into mechanism of injury of [...] mg 12/03/24 16:45 Bisacodyl [address] 12/03/25 16:44 DAILY PRN Constipation Budesonide/Formoterol Fumarate [...] 16:45 Docusate Enema 283 Mg/[address] 12/03/25 16:44 DAILY PRN Constipation Doxycycline Hyclate [...] to rule out a DVT. - Samantha wrap/LEONIDES hose to the right leg to help [...] at least 3 times weekly encounters with oil refiner for medical management and for plan of care review / changes. I spent 19 minutes for services, including hujh-sg-kxhu encounter with the patient, discussion of the case, plan of care, and exam; and uuonbjm-qb-dfuj activities, such as reviewing pertinent child development consultant documentation, recent therapynotes, laboratory and radiology studies, and discussion of case with care team including physician, nursing, case planner, and therapists. More than 50 % of time was spent on patient/family counseling or coordination ofcare. Patient was personally seen by me, Dr. Jimenez, on the day of encounter, reviewed the history and the relevant portions of the chart, including current orders, allied health and child development consultant notes, labs/imaging and performed ulloa elements of exam and I formulated the plan of care and facilitated the medical decision making. I completed a substantive portion of this encounter, the medical decision makingportion of this note in its entirety, including Allied health note review, nursing note review, child development consultant note review,discussion with nursing and case management, and more than 50% of my time was spent on counseling and coordination of care, time spent 20 minutes Documented By: Gloria Arrington APRN 12/10/24 0 959 Signed By: 12/10/24 1003 12/10/[address] [facility]05-28-2025 Progress note Author Gloria Arrington [facility] Date/TimeMay 2024 11:17a[address] [address] Physiatry(Rehab) Progress Note Signed Patient: Rehan Trejo MR#: [id number] : 1965 Acct:[id number] Age/Sex: 59 / M Adm Date: 5 Loc: Room: 8F6591-8 Type: ADM IN Attending Dr: Paco Jimenez [...] at homecaring for his , mother and mazvty-dt-yrb. Shares insight into mechanism of injury of [...] mg 12/03/24 16:45 Bisacodyl [address] 12/03/25 16:44 DAILY PRN Constipation Budesonide/Formoterol Fumarate 2 puff 12/04/24 21:00 12/05/24 06:18 Budesonide/Formoterol 160-4.5 Mcg 60 Puff/6 Gm Hfa.Aer.Ad INHALATION 12/04/25 20:59 2 puff BID CHRISTOPHER Administration Calcium Carbonate 1 tab 12/03/24 21:00 12/05/24 08:33 Calcium Carbonate/Vitamin D3 500 Mg/200 Unit Tablet PO 12/03/25 20:59 1 tab BID CHRISTOPHER Administration Diclofenac Sodium 75 mg 12/04/24 09:00 12/05/24 08:33 Diclofenac Sodium 75 Mg Tablet. PO 12/04/25 [...] 16:45 Docusate Enema 283 Mg/[address] 12/03/25 16:44 DAILY PRN Constipation Doxycycline Hyclate [...] Tablet PO 12/03/25 20:59 Not Given BID [facility] Sodium Chloride 0 ml 12/03/24 16:45 Sodium [...] at least 3 times weekly encounters with oil refiner for medical management and for plan of care review / changes. I spent 21 minutes for services, including zawe-ok-urfj encounter with the patient, discussion of the case, plan of care, and exam; and tnohdzj-tg-nqpr activities, such as reviewing pertinent child development consultant documentation, recent therapynotes, laboratory and radiology studies, and discussion of case with care team including physician, nursing, case planner, and therapists. More than 50 % of time was spent on patient/family counseling or coordination ofcare. <Statement entered by Jose Antonio Camara MD - 12/10/24 11:17> This documentation has been reviewed and approved. I reviewed the history and the relevant portions of the chart, including currentorders, allied health and child development consultant notes, labs/imaging and plan of care as above. Documented By: Gloria Arrington APRN 12/05/24 1 144 Signed By: <Electronically signed by KB Arrington> 12/05/24 1243 <Electronically signed by Jose Antonio Camara MD> 12/10/24 [facility]0 [facility] Work Phone: 1(642) [phone] Progress note Author Gloria Arrington [facility] Date/TimeMay 2024 10:53[place] [address] Physiatry(Rehab) Progress Note Signed Patient: Rehan Trejo MR#: [id number] : 1965 Acct:[id number] Age/Sex: 59 / M Adm Date: 5 Loc: Room: [address] [place] [address] Type: ADM IN Attending Dr: Paco Jimenez [...] at homecaring for his , mother and aqbzte-sc-mke. Shares insight into mechanism of injury of [...] mg 12/03/24 16:45 Bisacodyl [address] 12/03/25 16:44 DAILY PRN Constipation Budesonide/Formoterol Fumarate 2 puff 12/04/24 21:00 12/08/24 06:11 Budesonide/Formoterol 160-4.5 Mcg 60 Puff/6 Gm Hfa.Aer.Ad INHALATION 12/04/25 20:59 2 puff BID CHRISTOPHER Administration Calcium Carbonate 1 tab 12/03/24 21:00 12/08/24 09:03 Calcium Carbonate/Vitamin D3 500 Mg/200 Unit Tablet PO 12/03/25 20:59 1 tab BID CHRISTOPHER Administration Diclofenac Sodium 75 mg 12/04/24 09:00 12/08/24 09:04 Diclofenac Sodium 75 Mg Tablet.Dr PO 12/04/25 [...] 16:45 Docusate Enema 283 Mg/[address] 12/03/25 16:44 DAILY PRN Constipation Doxycycline Hyclate [...] at least 3 times weekly encounters with oil refiner for medical management and for plan of care review / changes. I spent 19 minutes for services, including qvlp-wl-heko encounter with the patient, discussion of the case, plan of care, and exam; and watiits-pm-unyp activities, such as reviewing pertinent child development consultant documentation, recent therapynotes, laboratory and radiology studies, and discussion of case with care team including physician, nursing, case planner, and therapists. More than 50 % of time was spent on patient/family counseling or coordination ofcare. <Statement entered by Jose Antonio Camara MD - 12/10/24 10:53> This documentation has been reviewed and approved. I reviewed the history and the relevant portions of the chart, including currentorders, allied health and child development consultant notes, labs/imaging and plan of care as above. Documented By: Gloria Arrington APRN 12/08/24 1 103 Signed By: <Electronically signed by KB Arrington> 12/08/24 1105 <Electronically signed by Jose Antonio Camara MD> 12/10/24 1053 [facility] Work Phone: 1(392) 564-233405-28-2025 [place] [address] Physiatry(Rehab) Progress Note Signed Patient: Rehan Trejo MR#: [id number] : 1965 Acct:[id number] Age/Sex: 59 / M Adm Date: 5 Loc: Room: 4L6289-6 Type: ADM IN Attending Dr: Paco Jimenez [...] at homecaring for his , mother and edlfyw-zp-ygb. Shares insight into mechanism of injury of [...] Dose Route Start Last Admin Trade Name Robsonq PRN Reason Stop Dose Admin Acetaminophen 1,000 [...] mg 12/03/24 16:45 Bisacodyl [address] 12/03/25 16:44 DAILY PRN Constipation Budesonide/Formoterol Fumarate [...] 12/05/24 08:33 Diclofenac Sodium 75 Mg Tablet.Dr DELEON 12/04/25 08:59 75 mg DAILY CHRISTOPHER Administration Diphenhydramine HCl 25 mg 12/03/24 22:00 12/04/24 21:28 Diphenhydramine 25 Mg Capsule PO 12/03/25 21:59 25 mg QHS CHRISTOPHER Administration Docusate Sodium 100 mg 12/03/24 16:45 12/03/24 18:13 Docusate 100 Mg Capsule PO 12/03/25 16:44 100 mg BID PRN Administration Constipation Docusate Sodium 283 mg 12/03/24 16:45 Docusate Enema 283 Mg/[address] 12/03/25 16:44 DAILY PRN Constipation Doxycycline Hyclate [...] at least 3 times weekly encounters with oil refiner for medical management and for plan of care review / changes. I spent 21 minutes for services, including arso-fy-kpkz encounter with the patient, discussion of the case, plan of care, and exam; and pmbxhzp-xn-uaxs activities, such as reviewing pertinent child development consultant documentation, recent therapynotes, laboratory and radiology studies, and discussion of case with care team including physician, nursing, case planner, and therapists. More than 50 % of time was spent on patient/family counseling or coordination ofcare. This documentation has been reviewed and approved. I reviewed the history and the relevant portions of the chart, including currentorders, allied health and child development consultant notes, labs/imaging and plan of care as above. Documented By: Gloria Arrington APRN 12/05/24 1 144 Signed By: 12/05/24 1243 12/10/24 [facility]05-28-2025 [place] [address] Physiatry(Rehab) Progress Note Signed Patient: Rehan Trejo MR#: [id number] : 1965 Acct:[id number] Age/Sex: 59 / M Adm Date: 5 Loc: Room: 8E9311-7 Type: ADM IN Attending Dr: Paco Jimenez [...] at homecaring for his , mother and belxnn-ok-wli. Shares insight into mechanism of injury of [...] mg 12/03/24 16:45 Bisacodyl [address] 12/03/25 16:44 DAILY PRN Constipation Budesonide/Formoterol Fumarate 2 puff 12/04/24 21:00 12/08/24 06:11 Budesonide/Formoterol 160-4.5 Mcg 60 Puff/6 Gm Hfa.Aer.Ad INHALATION 12/04/25 20:59 2 puff BID CHRISTOPHER Administration Calcium Carbonate 1 tab 12/03/24 21:00 12/08/24 09:03 Calcium Carbonate/Vitamin D3 500 Mg/200 Unit Tablet PO 12/03/25 20:59 1 tab BID CHRISTOPHER Administration Diclofenac Sodium 75 mg 12/04/24 09:00 12/08/24 09:04 Diclofenac Sodium 75 Mg Tablet.Dr PO 12/04/25 [...] 16:45 Docusate Enema 283 Mg/[address] 12/03/25 16:44 DAILY PRN Constipation Doxycycline Hyclate [...] at least 3 times weekly encounters with oil refiner for medical management and for plan of care review / changes. I spent 19 minutes for services, including xrht-cy-eepj encounter with the patient, discussion of the case, plan of care, and exam; and hwxhdbk-cb-xobf activities, such as reviewing pertinent child development consultant documentation, recent therapynotes, laboratory and radiology studies, and discussion of case with care team including physician, nursing, case planner, and therapists. More than 50 % of time was spent on patient/family counseling or coordination ofcare. This documentation has been reviewed and approved. I reviewed the history and the relevant portions of the chart, including currentorders, allied health and child development consultant notes, labs/imaging and plan of care as above. Documented By: Gloria Arrington APRN 12/08/24 1 103 Signed By: 12/08/24 1105 12/10/[address] [facility]05-27-2025 Progress note Author Paco Jimenez [facility] Date/TimeMay 2024 12:[place] [address] Physiatry(Rehab) Progress Note Signed Patient: Rehan Trejo MR#: [id number] : 1965 Acct:[id number] Age/Sex: 59 / M Adm Date: 5 Loc: Room: [address] [place] [address] Type: ADM IN Attending Dr: Paco Jimenez [...] at homecaring for his , mother and blpfmq-jc-gid. Shares insight into mechanism of injury of [...] mg 12/03/24 16:45 Bisacodyl [address] 12/03/25 16:44 DAILY PRN Constipation Budesonide/Formoterol Fumarate 2 puff 12/04/24 21:00 12/09/24 06:34 Budesonide/Formoterol 160-4.5 Mcg 60 Puff/6 Gm Hfa.Aer.Ad INHALATION 12/04/25 20:59 2 puff BID CHRISTOPHER Administration Calcium Carbonate 1 tab 12/03/24 21:00 12/09/24 09:31 Calcium Carbonate/Vitamin D3 500 Mg/200 Unit Tablet PO 12/03/25 20:59 1 tab BID CHRISTOPHER Administration Diclofenac Sodium 75 mg 12/04/24 09:00 12/09/24 09:31 Diclofenac Sodium 75 Mg Tablet.Dr PO 12/04/25 [...] 16:45 Docusate Enema 283 Mg/[address] 12/03/25 16:44 DAILY PRN Constipation Doxycycline Hyclate [...] at least 3 times weekly encounters with oil refiner for medical management and for plan of care review / changes. I spent 25 minutes for services, including rgtn-mj-qpwf encounter with the patient, discussion of the case, plan of care, and exam; and yrccocc-fa-luei activities, such as reviewing pertinent child development consultant documentation, recent therapynotes, laboratory and radiology studies, and discussion of case with care team including physician, nursing, case planner, and therapists. More than 50 % of time was spent on patient/family counseling or coordination ofcare. Documented By: Paco Jimenez MD 1244 Signed By: <Electronically signed by Paco Jimenez MD> 12/09/24 1246 [facility] Work Phone: 1(575) 418-870005-27-2025 [place] [address] Physiatry(Rehab) Progress Note Signed Patient: Rehan Trejo MR#: [id number] : 1965 Acct:[id number] Age/Sex: 59 / M Adm Date: 5 Loc: Room: [address] [place] [address] Type: ADM IN Attending Dr: Paco Jimenez [...] at homecaring for his , mother and mltaad-cl-yfq. Shares insight into mechanism of injury of [...] mg 12/03/24 16:45 Bisacodyl [address] 12/03/25 16:44 DAILY PRN Constipation Budesonide/Formoterol Fumarate 2 puff 12/04/24 21:00 12/09/24 06:34 Budesonide/Formoterol 160-4.5 Mcg 60 Puff/6 Gm Hfa.Aer.Ad INHALATION 12/04/25 20:59 2 puff BID CHRISTOPHER Administration Calcium Carbonate 1 tab 12/03/24 21:00 12/09/24 09:31 Calcium Carbonate/Vitamin D3 500 Mg/200 Unit Tablet PO 12/03/25 20:59 1 tab BID CHRISTOPHER Administration Diclofenac Sodium 75 mg 12/04/24 09:00 12/09/24 09:31 Diclofenac Sodium 75 Mg Tablet.Dr PO 12/04/25 [...] 16:45 Docusate Enema 283 Mg/[address] 12/03/25 16:44 DAILY PRN Constipation Doxycycline Hyclate [...] Powd.Pack PO 12/04/25 08:59 Not Given DAILY CHRITSOPHER Rivaroxaban 10 mg 12/04/24 09:00 12/09/24 09:30 [...] at least 3 times weekly encounters with oil refiner for medical management and for plan of care review / changes. I spent 25 minutes for services, including ctxl-bz-ljty encounter with the patient, discussion of the case, plan of care, and exam; and pbmvbcx-dh-sbad activities, such as reviewing pertinent child development consultant documentation, recent therapynotes, laboratory and radiology studies, and discussion of case with care team including physician, nursing, case planner, and therapists. More than 50 % of time was spent on patient/family counseling or coordination ofcare. Documented By: Paco Jimenez MD 1244 Signed By: 12/09/24 1246 [facility]05-23-2025 Consult note Author Danyell Daniels [facility] HospitalNote Date/TimeMay 2024 10:12[place] [address] Hospitalist Consult Note Signed Patient: Rehan Trejo MR#: [id number] : 1965 Acct:[id number] Age/Sex: 59 / M Adm Date: 5 Loc: Room: [address] [place] [address] Type: ADM IN Attending Dr: Paco Jimenez [...] underlying avascular necrosis. He was transferred to [facility] for ongoing orthopedic management. Seen by orthopedic [...] negative unless noted below or in HPI [facility] Medical History (Updated 12/04/24 @ 17:48 by [...] Dose Route Start Last Admin Trade Name Anne PRN Reason Stop Dose Admin Acetaminophen 1,000 [...] mg 12/03/24 16:45 Bisacodyl [address] 12/03/25 16:44 DAILY PRN Constipation Budesonide/Formoterol Fumarate [...] 16:45 Docusate Enema 283 Mg/[address] 12/03/25 16:44 DAILY PRN Constipation Doxycycline Hyclate [...] % (Auto) 67.2, Lymph % (Auto) 20.4, [place] % (Auto) 11.8, Eos % (Auto) 0.3, Baso % (Auto) 0.3, Nucleat RBC Rel Count 0.1, Neut # (Auto) 6.1, Lymph # (Auto) 1.9, [place] # (Auto) 1.1 H, Eos # (Auto) [...] 2. Hyperlipidemia?atorvastatin 3. COPD/asthma?budesonide/formoterol 4. CAD history AR?isosorbide, metoprolol, aspirin 5. Hypothyroid?levothyroxine 6. BPH?tamsulosin 7. [...] PCP and out patient providers to obtain [facility] record entirely to followup on illnesses, symptoms, abnormal findings that I have and have not addressed duringthis encounter and hospitalization in out patient setting. Documented By: Danyell Daniels APRN 11/14 09/09 1538 Signed By: <Electronically signed by KB Daniels> 12/04/24 1750 <Electronically signed by Yonis Alves MD> 12/05/24 [address] [facility] Work Phone: 1(133) 597-713105-23-2025 [place] [address] Hospitalist Consult Note Signed Patient: Rehan Trejo MR#: [id number] : 1965 Acct:[id number] Age/Sex: 59 / M Adm Date: 5 Loc: Room: [address] [place] [address] Type: ADM IN Attending Dr: Paco Jimenez [...] underlying avascular necrosis. He was transferred to [facility] for ongoing orthopedic management. Seen by orthopedic [...] negative unless noted below or in HPI [facility] Medical History (Updated 12/04/24 @ 17:48 by [...] mg 12/03/24 16:45 Bisacodyl [address] 12/03/25 16:44 DAILY PRN Constipation Budesonide/Formoterol Fumarate [...] 16:45 Docusate Enema 283 Mg/[address] 12/03/25 16:44 DAILY PRN Constipation Doxycycline Hyclate [...] % (Auto) 67.2, Lymph % (Auto) 20.4, [place] % (Auto) 11.8, Eos % (Auto) 0.3, Baso % (Auto) 0.3, Nucleat RBC Rel Count 0.1, Neut # (Auto) 6.1, Lymph # (Auto) 1.9, [place] # (Auto) 1.1 H, Eos # (Auto) [...] 2. Hyperlipidemia?atorvastatin 3. COPD/asthma?budesonide/formoterol 4. CAD history AR?isosorbide, metoprolol, aspirin 5. Hypothyroid?levothyroxine 6. BPH?tamsulosin 7. [...] PCP and out patient providers to obtain [facility] record entirely to followup on illnesses, symptoms, abnormal findings that I have and have not addressed duringthis encounter and hospitalization in out patient setting. Documented By: Danyell Daniels APRN 11/14 09/09 1538 Signed By: 12/04/24 1750 12/05/[address] [facility]05-22-2025 History and physical note Author Paco Jimenez [facility] HospitalNote Date/TimeMay 2024 2:[place] [address] Physiatry (Rehab) H&P Signed Patient: Rehan Trejo MR#: [id number] : 1965 Acct:[id number] Age/Sex: 59 / M Adm Date: 5 Loc: Room: 8X3949-6 Type: ADM IN Attending Dr: Paco Jimenez [...] at homecaring for his , mother and [id number]. Shares insight into mechanism of injury of [...] and managing to work through the pain. [facility] Medical History COPD (chronic obstructive pulmonary disease) [...] Dose: 500 mg Aspirin (Aspirin 81 Mg Tablet.Dr) 81 mg PO BID [facility] Stop: 12/03/25 20:59 Last Admin: 12/04/24 08:40 Dose: 81 mg Atorvastatin Calcium (Atorvastatin 10 Mg Tablet) 10 mg PO HS [facility] Stop: 12/03/25 21:59 Last Admin: 12/03/24 21:20 Dose: 10 mg Bisacodyl (Bisacodyl 10 Mg Supp.Rect) [address] DAILY PRN PRN Reason: Constipation Stop: 12/03/25 16:44 Calcium Carbonate (Calcium Carbonate/Vitamin D3 500 Mg/200 Unit Tablet) 1 tab PO BID [facility] Stop: 12/03/25 20:59 Last Admin: 12/04/24 08:40 Dose: 1 tab Diclofenac Sodium (Diclofenac Sodium 75 Mg Tablet.Dr) 75 mg PO DAILY [facility] Stop: 12/04/25 08:59 Last Admin: 12/04/24 08:40 Dose: 75 mg Diphenhydramine HCl (Diphenhydramine 25 Mg Capsule) 25 mg PO QHS [facility] Stop: 12/03/25 21:59 Last Admin: 12/03/24 21:20 Dose: 25 mg Docusate Sodium (Docusate 100 Mg Capsule) 100 mg PO BID PRN PRN Reason: Constipation Stop: 12/03/25 16:44 Last Admin: 12/03/24 18:13 Dose: 100 mg Docusate Sodium (Docusate Enema 283 Mg/5 Ml Enema) [address] DAILY PRN PRN Reason: Constipation Stop: 12/03/25 16:44 Doxycycline Hyclate (Doxycycline Hyclate 100 Mg Tablet) 100 mg PO BID [facility] Stop: 12/10/24 20:59 Last Admin: 12/04/24 08:40 Dose: 100 mg Isosorbide Mononitrate (Isosorbide Mononitrate 24hr Er 30 Mg Tab.Er.24h) 30 mg PO QAM [facility] Stop: 12/04/25 08:59 Last Admin: 12/04/24 08:41 Dose: 30 mg Lactulose (Lactulose 20 Gm/30 Ml Udc) 30 gm PO DAILY PRN PRN Reason: Constipation Stop: 12/03/25 16:44 Levothyroxine Sodium (Levothyroxine 125 Mcg Tablet) 250 mcg PO DAILY.0630 [facility] Stop: 12/04/25 06:29 Last Admin: 12/04/24 05:36 [...] Cap.Er.24h) 0.4 mg PO DAILY [facility] Stop: 12/04/25 08:59 Last Admin: 12/04/24 08:40 Dose: 0.4 mg Tizanidine HCl (Tizanidine 4 Mg Tablet) 4 mg PO HS [facility] Stop: 12/03/25 21:59 Last Admin: 12/03/24 21:20 Dose: 4 mg Topiramate (Topiramate 100 Mg Tablet) 100 mg PO QAM [facility] Stop: 12/04/25 08:59 Last Admin: 12/04/24 08:40 Dose: 100 mg Topiramate (Topiramate 100 Mg Tablet) 200 mg PO HS [facility] Stop: 12/03/25 21:59 Last Admin: 12/03/24 21:21 [...] % (Auto) 67.2 Lymph % (Auto) 20.4 [place] % (Auto) 11.8 Eos % (Auto) 0.3 Baso % (Auto) 0.3 Nucleat RBC Rel Count 0.1 Neut # (Auto) 6.1 Lymph # (Auto) 1.9 [place] # (Auto) 1.1 H Eos # (Auto) [...] 12 Days Expected Discharge Destination: Home Rehabilitation [facility]: 8. Primary Diagnosis: as above Patient?s/Family?s anticipated outcomes/personal [...] hour daily monitoring and intervention from [employer] as well as other consulting physicians including internal medicine as well as 24 hour daily chief console operator nursing - for medical safe / [...] at least 3 times weekly encounters with oil refiner for medical management and for plan of care review / changes. Patient was personally seen by me, Dr. Jimenez, on the day of encounter, reviewed the history and the relevant portions of the chart, including current orders, allied health and child development consultant notes, labs/imaging and performed ulloa elements of exam and I formulated the plan of care and facilitated the medical decision making and confirmed the resident physician note, as above I completed a substantive portion of this encounter, the medical decision makingportion of this note in its entirety, including Allied health note review, nursing note review, child development consultant note review,discussion with nursing and case management, and more than 50% of my time was spent on counseling and coordination of care, time spent 40 minutes Documented By: Paco Jimenez MD [id number] Signed By: <Electronically signed by Paco Jimenez MD> 12/04/24 0442 <Electronically signed by MD ANÍBAL Tracy> 12/04/24 1300 [facility] Work Phone: 1(546) 915-783005-22-2025 [place] [address] Physiatry (Rehab) H&P Signed Patient: Rehan Trejo MR#: [id number] : 1965 Acct:[id number] Age/Sex: 59 / M Adm Date: 5 Loc: Room: [address] [place] [address] Type: ADM IN Attending Dr: Paco Jimenez [...] at homecaring for his , mother and [id number]. Shares insight into mechanism of injury of [...] and managing to work through the pain. [facility] Medical History COPD (chronic obstructive pulmonary disease) [...] Dose: 500 mg Aspirin (Aspirin 81 Mg Tablet.Dr) 81 mg PO BID [facility] Stop: 12/03/25 20:59 Last Admin: 12/04/24 08:40 Dose: 81 mg Atorvastatin Calcium (Atorvastatin 10 Mg Tablet) 10 mg PO HS [facility] Stop: 12/03/25 21:59 Last Admin: 12/03/24 21:20 Dose: 10 mg Bisacodyl (Bisacodyl 10 Mg Supp.Rect) [address] DAILY PRN PRN Reason: Constipation Stop: 12/03/25 16:44 Calcium Carbonate (Calcium Carbonate/Vitamin D3 500 Mg/200 Unit Tablet) 1 tab PO BID [facility] Stop: 12/03/25 20:59 Last Admin: 12/04/24 08:40 Dose: 1 tab Diclofenac Sodium (Diclofenac Sodium 75 Mg Tablet.Dr) 75 mg PO DAILY [facility] Stop: 12/04/25 08:59 Last Admin: 12/04/24 08:40 [...] Enema 283 Mg/5 Ml Enema) [address] DAILY PRN PRN Reason: Constipation Stop: 12/03/25 16:44 Doxycycline Hyclate (Doxycycline Hyclate 100 Mg Tablet) 100 mg PO BID [facility] Stop: 12/10/24 20:59 Last Admin: 12/04/24 08:40 Dose: 100 mg Isosorbide Mononitrate (Isosorbide Mononitrate 24hr Er 30 Mg Tab.Er.24h) 30 mg PO QAM [facility] Stop: 12/04/25 08:59 Last Admin: 12/04/24 08:41 Dose: 30 mg Lactulose (Lactulose 20 Gm/30 Ml Udc) 30 gm PO DAILY PRN PRN Reason: Constipation Stop: 12/03/25 16:44 Levothyroxine Sodium (Levothyroxine 125 Mcg Tablet) 250 mcg PO DAILY.0630 [facility] Stop: 12/04/25 06:29 Last Admin: 12/04/24 05:36 Dose: 250 mcg Melatonin (Melatonin 5 Mg Tablet) 10 mg PO QHS [facility] Stop: 12/03/25 21:59 Last Admin: 12/03/24 21:20 Dose: 10 mg Metoprolol Tartrate (Metoprolol Tartrate 50 Mg Tablet) 50 mg PO BID [facility] Stop: 12/03/25 20:59 Last Admin: 12/04/24 08:40 [...] 0.4 Mg Cap.Er.24h) 0.4 mg PO DAILY [facility] Stop: 12/04/25 08:59 Last Admin: 12/04/24 08:40 Dose: 0.4 mg Tizanidine HCl (Tizanidine 4 Mg Tablet) 4 mg PO HS [facility] Stop: 12/03/25 21:59 Last Admin: 12/03/24 21:20 Dose: 4 mg Topiramate (Topiramate 100 Mg Tablet) 100 mg PO QAM [facility] Stop: 12/04/25 08:59 Last Admin: 12/04/24 08:40 Dose: 100 mg Topiramate (Topiramate 100 Mg Tablet) 200 mg PO HS [facility] Stop: 12/03/25 21:59 Last Admin: 12/03/24 21:21 [...] % (Auto) 67.2 Lymph % (Auto) 20.4 [place] % (Auto) 11.8 Eos % (Auto) 0.3 Baso % (Auto) 0.3 Nucleat RBC Rel Count 0.1 Neut # (Auto) 6.1 Lymph # (Auto) 1.9 [place] # (Auto) 1.1 H Eos # (Auto) [...] 12 Days Expected Discharge Destination: Home Rehabilitation [facility]: 8.11 Primary Diagnosis: as above Patient?s/Family?s anticipated [...] hour daily monitoring and intervention from [employer] as well as other consulting physicians including internal medicine as well as 24 hour daily chief console operator nursing - for medical safe / [...] at least 3 times weekly encounters with oil refiner for medical management and for plan of care review / changes. Patient was personally seen by me, Dr. Jimenez, on the day of encounter, reviewed the history and the relevant portions of the chart, including current orders, allied health and child development consultant notes, labs/imaging and performed ulloa elements of exam and I formulated the plan of care and facilitated the medical decision making and confirmed the resident physician note, as above I completed a substantive portion of this encounter, the medical decision makingportion of this note in its entirety, including Allied health note review, nursing note review, child development consultant note review,discussion with nursing and case management, and more than 50% of my time was spent on counseling and coordination of care, time spent 40 minutes Documented By: Paco Jimenez MD [id number] Signed By: 12/04/24 1452 12/04/[address] [facility]05-21-2025 Evaluation note* Diagnosis Onset Date Resolution Status Admit Date Alcohol dependence acuteMay 2024 4:33pmBPH (benign prostatic hyperplasia)acuteMa2024 4:33pmCAD (coronary artery disease)acuteMa2024 4:33pmCOPD (chronic obstructive pulmonary disease)acuteMay 2024 4:33pmHyperlipidemiaacuteMay 2024 4:33pmHypothyroidismacuteMay 2024 4:33pmAvascular necrosis resolvedDecember 03, 2024 4:33pmClosed right hip fractureresolvedDecember 03, 2024 4:33pmHTN (hypertension)resolvedDecember 03, 2024 4:33pmImpaired mobility and activities of daily livingresolvedDecember 03, 2024 4:33pmS/P total hip arthroplastyresolvedDecember 03, 2024 4:33pmSeizure disorderresolvedMa2024 4:33pmAvascular necrosis of bone of right hipacuteJune 2024 3:59pmAvascular necrosis of left femuracuteJune 2024 3:59pmClosed subcapital fracture of right femuracuteJune 2024 3:59pmRight shoulder painacuteJune 2024 3:59pmStatus post total hip replacement, rightnoneactiveJune 2024 3:59pm Avascular necrosis of bone of right hipacuteJune 2024 10:57amAvascular necrosis of left femuracuteJune 2024 10:57amClosed subcapital fracture of right femuracuteJune 2024 10:57amRight shoulder painacuteJune 2024 10:57amStatus post total hip replacement, rightnoneactiveJune 2024 10:57am Avascular necrosis of bone of right hipacuteJuly 2024 11:59amAvascular necrosis of left femuracuteJuly 2024 11:59amClosed subcapital fracture of right femuracuteJuly 2024 11:59amRight shoulder painacuteJuly 2024 11:59amStatus post total hip replacement, rightnoneactiveJuly 2024 11:59am Cellulitis of right lower extremityacuteAugust 2024 10:17amStasis dermatitisacuteAugust 2024 10:17amAvascular necrosis of bone of right hip acuteAugust 2024 11:08amAvascular necrosis of left femuracuteAugust 2024 11:08amClosed subcapital fracture of right femuracuteAugust 2024 11:08amRight shoulder painacuteAugust 2024 11:08amStatus post total hip replacement, rightnoneactiveAugust 2024 11:08am [facility] Work Phone: 1(886) 387-184205-19-2025 Evaluation note* Diagnosis Onset Date Resolution Status Admit Date Alcohol dependence acuteMay 2024 8:05pmBPH (benign prostatic hyperplasia)acuteMay 2024 8:05pmHypothyroidismacuteMay 2024 8:05pmAvascular necrosisresolvedMay 2024 8:05pmClosed right hip fractureresolvedMay 2024 8:05pmFemoral neck fractureresolvedMay 2024 8:05pmHTN (hypertension)resolvedMay 2024 8:05pmS/P total hip arthroplastyresolvedMay 2024 8:05pmSeizure disorderresolvedMay 2024 8:05pmAlcohol dependenceacuteMay 2024 4:33pmBPH (benign prostatic hyperplasia)acuteMay 2024 4:33pmCAD (coronary artery disease)acuteMay 2024 4:33pmCOPD (chronic obstructive pulmonary disease)acuteMay 2024 4:33pmHyperlipidemiaacuteMay 2024 4:33pm HypothyroidismacuteMay 2024 4:33pmImpaired mobility and activities of daily livingacuteDecember 03, 2024 4:33pmAvascular necrosisresolvedMay 2024 4:33pmClosed right hip fractureresolvedy 2024 4:33pmHTN (hypertension) resolvedDecember 03, 2024 4:33pmS/P total hip arthroplastyresolvedy 2024 4:33pmSeizure disorderresolvedDecember 03, 2024 4:33pm [facility] Work Phone: 1(270) 637-746705-19-2025 Evaluation note* Diagnosis Onset Date Resolution Status Admit Date Alcohol dependence acuteMay 2024 8:05pmBPH (benign prostatic hyperplasia)acuteMay 2024 8:05pmHypothyroidismacuteMay 2024 8:05pmAvascular necrosisresolvedMay 2024 8:05pmClosed right hip fractureresolvedMay 2024 8:05pmFemoral neck fractureresolvedMay 2024 8:05pmHTN (hypertension)resolvedDecember 01, 2024 8:05pmS/P total hip arthroplastyresolvedMay 2024 8:05pmSeizure disorderresolvedMay 2024 8:05pmAlcohol dependenceacuteMay 2024 4:33pmBPH (benign prostatic hyperplasia)acuteMay 2024 4:33pmCAD (coronary artery disease)acuteMay 2024 4:33pmCOPD (chronic obstructive pulmonary disease)acuteMay 2024 4:33pmHyperlipidemiaacuteMay 2024 4:33pm HypothyroidismacuteMay 2024 4:33pmAvascular necrosisresolvedMay 2024 4:33pmClosed right hip fractureresolvedMay 2024 4:33pmHTN (hypertension) resolvedDecember 03, 2024 4:33pmImpaired mobility and activities of daily living resolvedDecember 03, 2024 4:33pmS/P total hip arthroplastyresolvedMa2024 4:33pmSeizure disorderresolvedMa2024 4:33pmAvascular necrosis of bone of right hipacuteJune 2024 3:59pmAvascular necrosis of left femuracuteJune 2024 3:59pmClosed subcapital fracture of right femuracuteJune 2024 3:59pmStatus post total hip replacement, rightnoneactiveJune 2024 3:59pm [facility] Work Phone: [phone]) 385-182705-19-2025 Evaluation note* Diagnosis Onset Date Resolution Status Admit Date Alcohol dependence acuteMay 2024 8:05pmBPH (benign prostatic hyperplasia)acuteMay 2024 8:05pmHypothyroidismacuteMay 2024 8:05pmAvascular necrosisresolvedMay 2024 8:05pmClosed right hip fractureresolvedMay 2024 8:05pmFemoral neck fractureresolvedMay 2024 8:05pmHTN (hypertension)resolvedMa2024 8:05pmS/P total hip arthroplastyresolvedMay 2024 8:05pmSeizure disorderresolvedMay 2024 8:05pmAlcohol dependenceacuteMa2024 4:33pmBPH (benign prostatic hyperplasia)acuteMa2024 4:33pmCAD (coronary artery disease)acuteMay 2024 4:33pmCOPD (chronic obstructive pulmonary disease)acuteMa2024 4:33pmHyperlipidemiaacuteMay 2024 4:33pm HypothyroidismacuteMay 2024 4:33pmAvascular necrosisresolvedMay 2024 4:33pmClosed right hip fractureresolvedMay 2024 4:33pmHTN (hypertension) resolvedMa2024 4:33pmImpaired mobility and activities of daily living resolvedMa2024 4:33pmS/P total hip arthroplastyresolvedMa2024 4:33pmSeizure disorderresolvedDecember 03, 2024 4:33pmAvascular necrosis of bone of right hipacuteJune 2024 3:59pmAvascular necrosis of left femuracuteJune 2024 3:59pmClosed subcapital fracture of right femuracuteJune 2024 3:59pmRight shoulder painacuteJune 2024 3:59pmStatus post total hip replacement, rightnoneactiveJune 2024 3:59pm [facility] Work Phone: 1(884) 299-994905-19-2025 Evaluation note* Diagnosis Onset Date Resolution Status Admit Date Alcohol dependence acuteMay 2024 8:05pmBPH (benign prostatic hyperplasia)acuteMay 2024 8:05pmHypothyroidismacuteMay 2024 8:05pmAvascular necrosisresolvedMay 2024 8:05pmClosed right hip fractureresolvedMay 2024 8:05pmFemoral neck fractureresolvedMay 2024 8:05pmHTN (hypertension)resolvedMa2024 8:05pmS/P total hip arthroplastyresolvedMay 2024 8:05pmSeizure disorderresolvedMay 2024 8:05pmAlcohol dependenceacuteMay 2024 4:33pmBPH (benign prostatic hyperplasia)acuteMa2024 4:33pmCAD (coronary artery disease)acuteNovember 2024 4:33pmCOPD (chronic obstructive pulmonary disease)acuteMay 2024 4:33pmHyperlipidemiaacuteMay 2024 4:33pm HypothyroidismacuteMay 2024 4:33pmAvascular necrosisresolvedMay 2024 4:33pmClosed right hip fractureresolvedMay 2024 4:33pmHTN (hypertension) resolvedDecember 03, 2024 4:33pmImpaired mobility and activities of daily living resolvedMa2024 4:33pmS/P total hip arthroplastyresolvedMay 2024 4:33pmSeizure disorderresolvedMay 2024 4:33pmAvascular necrosis of bone of right hipacuteJune 2024 3:59pmAvascular necrosis of left femuracuteJune 2024 3:59pmClosed subcapital fracture of right femuracuteJune 2024 3:59pmRight shoulder painacuteJune 2024 3:59pmStatus post total hip replacement, rightnoneactive[facility] 20[facility] 3:59pmAvascular necrosis of bone of right hipacuteJune 2024 10:57amAvascular necrosis of left femuracuteJune 2024 10:57amClosed subcapital fracture of right femuracuteJune 2024 10:57amRight shoulder painacuteJune 2024 10:57amStatus post total hip replacement, rightnoneactiveR[facility] 2024 10:57am [facility] Work Phone: 1(425) 664-986905-19-2025 Evaluation note* Diagnosis Onset Date Resolution Status Admit Date Alcohol dependence acuteMay 2024 8:05pmBPH (benign prostatic hyperplasia)acuteMay 2024 8:05pmHypothyroidismacuteMay 2024 8:05pmAvascular necrosisresolvedMay 2024 8:05pmClosed right hip fractureresolvedMay 2024 8:05pmFemoral neck fractureresolvedMay 2024 8:05pmHTN (hypertension)resolvedMay 2024 8:05pmS/P total hip arthroplastyresolvedMay 2024 8:05pmSeizure disorderresolvedMay 2024 8:05pmAlcohol dependenceacuteMay 2024 4:33pmBPH (benign prostatic hyperplasia)acuteMay 2024 4:33pmCAD (coronary artery disease)acuteMay 2024 4:33pmCOPD (chronic obstructive pulmonary disease)acuteMay 2024 4:33pmHyperlipidemiaacuteMay 2024 4:33pm HypothyroidismacuteMay 2024 4:33pmAvascular necrosisresolvedMay 2024 4:33pmClosed right hip fractureresolvedMay 2024 4:33pmHTN (hypertension) resolvedDecember 03, 2024 4:33pmImpaired mobility and activities of daily living resolvedMay 2024 4:33pmS/P total hip arthroplastyresolvedMay 2024 4:33pmSeizure disorderresolvedMay 2024 4:33pmAvascular necrosis of bone of right hipacuteJune 2024 3:59pmAvascular necrosis of left femuracuteJune 2024 3:59pmClosed subcapital fracture of right femuracuteJune 2024 3:59pmRight shoulder painacuteJune 2024 3:59pmStatus post total hip replacement, rightnoneactiveJune 2024 3:59pmAvascular necrosis of bone of right hipacuteJune 2024 10:57amAvascular necrosis of left femuracuteJune 2024 10:57amClosed subcapital fracture of right femuracuteJune 2024 10:57amRight shoulder painacuteJune 2024 10:57amStatus post total hip replacement, rightnoneactiveJune 2024 10:57amAvascular necrosis of bone of right hipacuteJuly 2024 11:59amAvascular necrosis of left femuracuteJuly 2024 11:59amClosed subcapital fracture of right femuracuteJuly 2024 11:59amRight shoulder painacuteJuly 2024 11:59amStatus post total hip replacement, rightnoneactiveJuly 2024 11:59am [facility] Work Phone: 1([phone]) 929-134405-19-2025 Evaluation note* Diagnosis Onset Date Resolution Status Admit Date Alcohol dependence acuteMay 2024 8:05pmBPH (benign prostatic hyperplasia)acuteMay 2024 8:05pmHypothyroidismacuteMay 2024 8:05pmAvascular necrosisresolvedMay 2024 8:05pmClosed right hip fractureresolvedMay 2024 8:05pmFemoral neck fractureresolvedMay 2024 8:05pmHTN (hypertension)resolvedMay 2024 8:05pmS/P total hip arthroplastyresolvedMay 2024 8:05pmSeizure disorderresolvedMay 2024 8:05pmAlcohol dependenceacuteMay 2024 4:33pmBPH (benign prostatic hyperplasia)acuteMay 2024 4:33pmCAD (coronary artery disease)acuteMay 2024 4:33pmCOPD (chronic obstructive pulmonary disease)acuteMay 2024 4:33pmHyperlipidemiaacuteMay 2024 4:33pm HypothyroidismacuteMay 2024 4:33pmAvascular necrosisresolvedMay 2024 4:33pmClosed right hip fractureresolvedMay 2024 4:33pmHTN (hypertension) resolvedMay 2024 4:33pmImpaired mobility and activities of daily living resolvedMa2024 4:33pmS/P total hip arthroplastyresolvedMay 2024 4:33pmSeizure disorderresolvedMay 2024 4:33pmAvascular necrosis of bone of right hipacuteJune 2024 3:59pmAvascular necrosis of left femuracuteJune 2024 3:59pmClosed subcapital fracture of right femuracuteJune 2024 3:59pmRight shoulder painacuteJune 2024 3:59pmStatus post total hip replacement, rightnoneactiveJune 2024 3:59pmAvascular necrosis of bone of right hipacuteJune 2024 10:57amAvascular necrosis of left femuracuteJune 2024 10:57amClosed subcapital fracture of right femuracuteJune 2024 10:57amRight shoulder painacuteJune 2024 10:57amStatus post total hip replacement, rightnoneactiveJune 2024 10:57amAvascular necrosis of bone of right hipacuteJuly 2024 11:59amAvascular necrosis of left femuracuteJuly 2024 11:59amClosed subcapital fracture of right femuracuteJuly 2024 11:59amRight shoulder painacuteJuly 2024 11:59amStatus post total hip replacement, rightnoneactiveJuly 2024 11:59amCellulitis of right lower extremityacuteAugust 2024 10:17amStasis dermatitisacuteAugust 2024 10:17am [facility] Work Phone: 1(370) 916-903603-19-2025 NoteUT Cardiology - [facility] Subjective Rehan Trejo is a [...] Adrenal insufficiency NSTEMI (non-ST elevated myocardial infarction) ([facility]/HCC) Alcoholism (CMS/[facility]) Atypical chest pain COVID-19 Diverticulitis Dysphagia Dyspnea Edema Epigastric pain Groin strain Lumbar radicular pain Other diseases of lung, not elsewhere classified Other instability, left ankle Other specified congenital deformities of feet Pain in left ankle and joints of left foot Pneumonia Primary osteoarthritis of left hip Sprain of left ankle Syncope and collapse Benign essential hypertension Osteoarthritis of knee Recurrent seizures ([facility]/HCC) HPI Patient with history of syncope 2022, [...] Diagnosis Date COPD (chronic obstructive pulmonary disease) ([facility]) Hyperlipidemia Hypertension Seizures ([facility]) Syncope No past surgical history on file. [...] Drug use: Never Allergies Allergies Allergen Reactions [place] Anaphylaxis Penicillins Angioedema Medications Current Outpatient Medications: [...] by saloni (more content not included)...[facility]05-15-2023 NotePROCEDURE: XR ANKLE LT 2V HISTORY: Unspecified fall , left ankle pain COMPARISON: None. FINDINGS: BONES:No fracture, acute abnormality, or significant arthropathy. SOFT TISSUES:Mild anterior lateral soft tissue swelling. EFFUSION:None visible. OTHER: Negative. IMPRESSION: 1. No acute bone abnormality. Electronically authenticated by: SHEN SOSA Date: 2022-11-27 11:27[facility]04-11-2023 NotePROCEDURE: XR HIP LT 2 3V W PELVIS HISTORY: Idiopathic osteoarthritis ; acute left hip pain after falling COMPARISON: None. FINDINGS: BONES:No fracture, acute abnormality, or significant arthropathy. SOFT TISSUES:No visible soft tissue swelling. EFFUSION:None visible. OTHER: Negative. IMPRESSION: 1. No acute bone abnormality or significant degenerative joint disease. Electronically authenticated by: SHEN SOSA Date: 2022-10-24 09:51[facility] Diagnosis Rash and other nonspecific skin eruption- Primary documented in this encounter [facility] HealthcareEvaluation note* Diagnosis Rash and other nonspecific skin eruption documented in this encounter [facility] HealthcareEvaluation note* Diagnosis Stasis dermatitis of both legs- Primary Encounter for removal of sutures Rash and other nonspecific skin eruption documented in this encounter [facility] HealthcareReason for referral (narrative)No reason for referral information availableFirelands [facility] Work Phone: Summary Purpose Family History Relationship Condition Age at Onset Recorded Date/T araseli father Diabetes mellitus Unknown motherMalignant neoplasmUnknown Relationship Condition Age at Onset Recorded Date/T araseli father Diabetes mellitus Unknown Malignant neoplasmUnknownMultiple sclerosisUnknownmotherMalignant neoplasm Unknown Advance Directives Advance Directive Response Recorded Date/ [...] 4:33p m Impaired mobility and activities of caremn y living December 03, 2024 4:33pm Avascular [...] H & P LEFT TOTAL HIP ARTHROPLASTY 5 February 11, 2025 11:59am Reason for Visit [...] hip replacement, right March 04, 2025 11:08am Chief Complaint Admit Date Hip pain February [...] hip replacement, right May 13, 2025 2:41pm Additional Source Comments (unrecognized sect ion and content) No Status Records FoundNo Status Records FoundNo Status Records FoundNo Status Records FoundNo Status Records FoundNo Status Records Found INFORMATION SOURCE (unrecogn ized section and content) DATE CREATED AUTHOR 02/15/2019 [facility] DATE CREATED AUTHOR AUTHOR'S ORGANIZ ATION 12/22/2022 [facility] DATE CREATED AUTHOR AUTHOR'S ORGANIZ ATION 03/06/2023 [facility] DATE CREATED AUTHOR AUTHOR'S ORGANIZ ATION 04/19/2025 [facility] DATE CREATED AUTHOR AUTHOR'S ORGANIZ ATION 04/26/2025 [facility] DATE CREATED AUTHOR AUTHOR'S ORGANIZ ATION 05/13/2025 [facility] Care Teams (unrecognized sec tion and content) Team Status: Active Member Role Status Dates Pee Lakhani MD Primary Care Provider Active Team Status: Inactive Member Role Status Dates Pee Lakhani MD Primary Care Provider Active Start: December 01, 2024 End: December 03, 2024Miclaura Cochran DOit ProviderActiveStart: December 01, 2024 End: December 03, 2024Justin Garcia MDOther ProviderActiveStart: December 01, 2024 End: December 03tracie Mckay MDOther ProviderActiveStart: December 01, 2024 End: December 03, 2024Jumando Ceja DOOther ProviderActiveStart: December 01, 2024 End: December 03, 2024Janki Lam II, MDOther ProviderActiveStart: December 01, 2024 End: December 03, 2024Rehan Thomas DOOther ProviderActiveStart: December 01, 2024 End: December 03ndamanda Hearn MDAttending ProviderActiveStart: December 01, 2024 End: December 03, 2024Maria Del Rosario Hernandez MDOther ProviderActiveStart: December 01, 2024 End: December 03, 2024Jose Antonio Camara MDOther ProviderActiveStart: December 01, 2024 End: December 03, 2024Gloria Arrington , APRNOther ProviderActiveStart: December 01, 2024 End: December 03enedinaida Waterman Jr, DOOther ProviderActiveStart: December 01, 2024 End: December 03john Jimenez MDOther ProviderActiveStart: December 01, 2024 End: December 03, 2024 Team Status: Active Member Role Status Dates Pee Lakhani MD Primary Care Provider Active Start: December 01, 2024 Marian Page ProviderActiveStart: December 01, 2024 Justin Garcia MDOther ProviderActiveStart: December 01, 2024 Kassy Mckay MDOther ProviderActiveStart: December 01, 2024 Nishant Ceja , Attending Provider, Other ProviderActiveStart: December 01, 2024 Janki Lam II, MDOther ProviderActiveStart: December 01, 2024 Rehan Thomas , DOOther ProviderActiveStart: December 01, 2024 Luis Alberto Hearn MDOther ProviderActiveStart: December 01, 2024 Team Status: Active Member Role Status Dates Pee Lakhani MD Primary Care Provider Active Start: December 03, 2024 Ammon Cochran , DOAdmit ProviderActiveStart: December 03, 2024 Justin Garcia MDOther ProviderActiveStart: December 03, 2024 Kassy Mckay MDOther ProviderActiveStart: December 03, 2024 Nishant Ceja , DOOther ProviderActiveStart: December 03, 2024 Janki Lam II, MDOther ProviderActiveStart: December 03, 2024 Rehan Thomas , DOOther ProviderActiveStart: December 03, 2024 Luis Alberto Hearn MDOther ProviderActiveStart: December 03, 2024 Maria Del Rosario Hernandez MDOther ProviderActiveStart: December 03, 2024 Jose Antonio Camara MDAttending Provider, Other ProviderActiveStart: December 03, 2024 Gloria Arrington , APRNOther ProviderActiveStart: December 03, 2024 Levi Waterman Jr, DOOther ProviderActiveStart: December 03, 2024 Paco Jimenez MDOther ProviderActiveStart: December 03, 2024 Team Status: Inactive Member Role Status Dates Pee Lakhani MD Primary Care Provider Active Start: December 03, 2024 End: December 14Valentino Fernandes Provider, Attending Provider ActiveStart: December 03, 2024 End: December 14lexlatrell Acosta RNOther ProviderActiveStart: December 03, 2024 End: December 14, 2024Annemarie Bhakta RNOther ProviderActiveStart: December 03, 2024 End: December 14, 2024Micdylan Monreal RNOther ProviderActiveStart: December 03, 2024 End: December 14, 2024Moalyson Reveles RNOther ProviderActiveStart: December 03, 2024 End: December 14, 2024Mardiana Wasserman RNOther ProviderActiveStart: December 03, 2024 End: December 14, 2024Liv Camara RNOther ProviderActiveStart: December 03, 2024 End: December 14, 2024Rabarbara Alves MDOther ProviderActiveStart: December 03, 2024 End: December 14, 2024Ronbairon Duffy DOOther ProviderActiveStart: December 03, 2024 End: December 14, 2024Mushuy Huerta MDOther ProviderActiveStart: December 03, 2024 End: December 14, 2024Connor Oliveros DOOther ProviderActiveStart: December 03, 2024 End: December 14ndamanda Hearn MDOther ProviderActiveStart: December 03, 2024 End: December 14, 2024Aneesh Pina ProviderActiveStart: December 03, 2024 End: December 14, 2024Michaejose Quiros DOOther ProviderActiveStart: December 03, 2024 End: December 14, 2024Navirginia Moore MDOther ProviderActiveStart: December 03, 2024 End: December 14, 2024Lyrashel Daniels APRNOther ProviderActiveStart: December 03, 2024 End: December 14, 2024Yakov Hodges MDOther ProviderActiveStart: December 03, 2024 End: December 14asselizabeth Hatch MDOther ProviderActiveStart: December 03, 2024 End: December 14, 2024Maravinder Hickey MDOther ProviderActiveStart: December 03, 2024 End: December 14, 2024Sani Moran MDOther ProviderActiveStart: December 03, 2024 End: December 14, 2024Michaejose Cochran DOOther ProviderActiveStart: December 03, 2024 End: December 14, 2024Reyes Tracey MDOther ProviderActiveStart: December 03, 2024 End: December 14, 2024Kyle Huerta MDOther ProviderActiveStart: December 03, 2024 End: December 14lowell Bonner NP-COther ProviderActiveStart: December 03, 2024 End: December 14djulienne Alejandra APRNOther ProviderActiveStart: December 03, 2024 End: December 14, 2024J Luis Hebert MDOther ProviderActiveStart: December 03, 2024 End: December 14, 2024Fermín Hope MDOther ProviderActiveStart: December 03, 2024 End: December 14, 2024Tino Calixto MDOther ProviderActiveStart: December 03, 2024 End: December 14, 2024Khmariely Rivera MDOther ProviderActiveStart: December 03, 2024 End: December 14noLooney MDOther ProviderActiveStart: December 03, 2024 End: December 14, 2024Marsandra Tai , DOOther ProviderActiveStart: December 03, 2024 End: December 14, 2024Andres Flores , DOOther ProviderActiveStart: December 03, 2024 End: December 14, 2024Linda Tomas , APRNOther ProviderActiveStart: December 03, 2024 End: December 14, 2024Shkate Bai , DOOther ProviderActiveStart: December 03, 2024 End: December 14, 2024Luciana Dempsey MDOther ProviderActiveStart: December 03, 2024 End: December 14, 2024Patim Forde , APRNOther ProviderActiveStart: December 03, 2024 End: December 14licyariel Hernandez , APRNOther ProviderActiveStart: December 03, 2024 End: December 14sony Hernandez MDOther ProviderActiveStart: December 03, 2024 End: December 14, 2024Dakwasi Keith MDOther ProviderActiveStart: December 03, 2024 End: December 14, 2024Michael Savage , DOOther ProviderActiveStart: December 03, 2024 End: December 14angel Rea , DOOther ProviderActiveStart: December 03, 2024 End: December 14, 2024Gavin Calixto MDOther ProviderActiveStart: December 03, 2024 End: December 14allan Sampson MDOther ProviderActiveStart: December 03, 2024 End: December 14robert Ortega , APRNOther ProviderActiveStart: December 03, 2024 End: December 14, 2024Ivonne Castro MDOther ProviderActiveStart: December 03, 2024 End: December 14malka Light MDOther ProviderActiveStart: December 03, 2024 End: December 14, 2024Jose Antonio Dacosta MDOther ProviderActiveStart: December 03, 2024 End: December 14, 2024Phil Shaikh MDOther ProviderActiveStart: December 03, 2024 End: December 14, 2024Ramariah Elise MDOther ProviderActiveStart: December 03, 2024 End: December 14, 2024Praveena Mast , APRNOther ProviderActiveStart: December 03, 2024 End: December 14, 2024Niclauren Smith , APRNOther ProviderActiveStart: December 03, 2024 End: December 14, 2024Saumberto Moore RNOther ProviderActiveStart: December 03, 2024 End: December 14, 2024 Team Status: Active Member Role Status Dates Pee Lakhani MD Primary Care Provider Active Start: December 04, 2024 Paco Jimenez [facility] Provider, Attending Provider, Other Provider ActiveStart: December 04, 2024 Padmini Acosta , BRISEYDAOther ProviderActiveStart: December 04, 2024 Annemarie Bhakta , BRISEYDAOther ProviderActiveStart: December 04, 2024 Angle Monreal , BRISEYDAOther ProviderActiveStart: December 04, 2024 Cindy Reveles , RNOther ProviderActiveStart: December 04, 2024 Lena Wasserman , BRISEYDAOther ProviderActiveStart: December 04, 2024 Liv Camara , BRISEYDAOther ProviderActiveStart: December 04, 2024 Yonis Alves MDOther ProviderActiveStart: December 04, 2024 Kenzie Duffy , DOOther ProviderActiveStart: December 04, 2024 Tom Huerta MDOther ProviderActiveStart: December 04, 2024 Connor Oliveros , DOOther ProviderActiveStart: December 04, 2024 Luis Alberto Hearn MDOther ProviderActiveStart: December 04, 2024 Brie Romero MDOther ProviderActiveStart: December 04, 2024 Ammon Quiros , DOOther ProviderActiveStart: December 04, 2024 Phil Moore MDOther ProviderActiveStart: December 04, 2024 Danyell Daniels , APRNOther ProviderActiveStart: December 04, 2024 Yakov Hodges MDOther ProviderActiveStart: December 04, 2024 Juan Pablo Hatch MDOther ProviderActiveStart: December 04, 2024 Leeanna Hickey MDOther ProviderActiveStart: December 04, 2024 Vin Moran MDOther ProviderActiveStart: December 04, 2024 Ammon Cochran , DOOther ProviderActiveStart: December 04, 2024 Reyes Tracey MDOther ProviderActiveStart: December 04, 2024 Kyle Hureta MDOther ProviderActiveStart: December 04, 2024 Sis Bonner , NET COORDINATOR-COther ProviderActiveStart: December 04, 2024 Yamilet Alejandra , APRNOther ProviderActiveStart: December 04, 2024 J Luis Hebert MDOther ProviderActiveStart: December 04, 2024 Fermín Hope MDOther ProviderActiveStart: December 04, 2024 Tino Calixto MDOther ProviderActiveStart: December 04, 2024 Marline Rivera MDOther ProviderActiveStart: December 04, 2024 Yan Joel MDOther ProviderActiveStart: December 04, 2024 Trinity Tai , DOOther ProviderActiveStart: December 04, 2024 Andres Flores , DOOther ProviderActiveStart: December 04, 2024 Reshma Marin , APRNOther ProviderActiveStart: December 04, 2024 Az Bai , DOOther ProviderActiveStart: December 04, 2024 Luciana Dempsey MDOther ProviderActiveStart: December 04, 2024 Diana Forde , APRNOther ProviderActiveStart: December 04, 2024 Lorena Hernandez , APRNOther ProviderActiveStart: December 04, 2024 Amaury Hernandez MDOther ProviderActiveStart: December 04, 2024 Ruben Keith MDOther ProviderActiveStart: December 04, 2024 Michael Savage , DOOther ProviderActiveStart: December 04, 2024 Lesley Rea , DOOther ProviderActiveStart: December 04, 2024 Gavin Calixto MDOther ProviderActiveStart: December 04, 2024 Hernandez Sampson MDOther ProviderActiveStart: December 04, 2024 Marti Ortega , APRNOther ProviderActiveStart: December 04, 2024 Ivonne Castro MDOther ProviderActiveStart: December 04, 2024 Ander Light MDOther ProviderActiveStart: December 04, 2024 Jose Antonio Dacosta MDOther ProviderActiveStart: December 04, 2024 Phil Shaikh MDOther ProviderActiveStart: December 04, 2024 Juan M Elise MDOther ProviderActiveStart: December 04, 2024 Praveena Mast , APRNOther ProviderActiveStart: December 04, 2024 Yeimi Smith , APRNOther ProviderActiveStart: December 04, 2024 Mariam Moore , RNOther ProviderActiveStart: December 04, 2024 Team Status: Active Member Role Status Dates Pee Lakhani MD Primary Care Provider Active Start: December 12, 2024 Paco Jimenez , MDAdmit Provider, Attending Provider, Other Provider ActiveStart: December 12, 2024 Padmini Acosta , RNOther ProviderActiveStart: December 12, 2024 Annemarie Bhakta , RNOther ProviderActiveStart: December 12, 2024 Angle Monreal , RNOther ProviderActiveStart: December 12, 2024 Cindy Reveles , BRISEYDAOther ProviderActiveStart: December 12, 2024 Lena Wasserman , BRISEYDAOther ProviderActiveStart: December 12, 2024 Liv Camara , BRISEYDAOther ProviderActiveStart: December 12, 2024 Yonis Alves MDOther ProviderActiveStart: December 12, 2024 Kenzie Duffy , DOOther ProviderActiveStart: December 12, 2024 Tom Huerta MDOther ProviderActiveStart: December 12, 2024 Connor Oliveros , DOOther ProviderActiveStart: December 12, 2024 Luis Alberto Hearn MDOther ProviderActiveStart: December 12, 2024 Brie Romero MDOther ProviderActiveStart: December 12, 2024 Ammon Quiros , DOOther ProviderActiveStart: December 12, 2024 Phil Moore MDOther ProviderActiveStart: December 12, 2024 Danyell Daniels , APRNOther ProviderActiveStart: December 12, 2024 Yakov Hodges MDOther ProviderActiveStart: December 12, 2024 Juan Pablo Hatch MDOther ProviderActiveStart: December 12, 2024 Leeanna Hickey MDOther ProviderActiveStart: December 12, 2024 Vin Moran MDOther ProviderActiveStart: December 12, 2024 Ammon Cochran , DOOther ProviderActiveStart: December 12, 2024 Reyes Tracey MDOther ProviderActiveStart: December 12, 2024 Kyle Huerta MDOther ProviderActiveStart: December 12, 2024 Sis Bonner , NET COORDINATOR-COther ProviderActiveStart: December 12, 2024 Yamilet Alejandra , APRNOther ProviderActiveStart: December 12, 2024 J Luis Hebert MDOther ProviderActiveStart: December 12, 2024 Fermín Hope MDOther ProviderActiveStart: December 12, 2024 Tino Calixto MDOther ProviderActiveStart: December 12, 2024 Marline Rivera MDOther ProviderActiveStart: December 12, 2024 Yan Joel MDOther ProviderActiveStart: December 12, 2024 Trinity Tai , DOOther ProviderActiveStart: December 12, 2024 Andres Flores , DOOther ProviderActiveStart: December 12, 2024 Reshma Marin , APRNOther ProviderActiveStart: December 12, 2024 Az Bai , DOOther ProviderActiveStart: December 12, 2024 Luciana Dempsey MDOther ProviderActiveStart: December 12, 2024 Diana Forde , APRNOther ProviderActiveStart: December 12, 2024 Lorena Hernandez , APRNOther ProviderActiveStart: December 12, 2024 Amaury Hernandez MDOther ProviderActiveStart: December 12, 2024 Ruben Keith MDOther ProviderActiveStart: December 12, 2024 Michael Savage , DOOther ProviderActiveStart: December 12, 2024 Lesley Rea , DOOther ProviderActiveStart: December 12, 2024 Gavin Calixto MDOther ProviderActiveStart: December 12, 2024 Hernandez Sampson MDOther ProviderActiveStart: December 12, 2024 Marti Ortega , APRNOther ProviderActiveStart: December 12, 2024 Ivonne Castro MDOther ProviderActiveStart: December 12, 2024 Ander Light MDOther ProviderActiveStart: December 12, 2024 Jose Antonio Dacosta MDOther ProviderActiveStart: December 12, 2024 Phil Shaikh MDOther ProviderActiveStart: December 12, 2024 Juan M Elise MDOther ProviderActiveStart: December 12, 2024 Praveena Mast , APRNOther ProviderActiveStart: December 12, 2024 Yeimi Smith , APRNOther ProviderActiveStart: December 12, 2024 Mariam Moore RNOther ProviderActiveStart: December 12, 2024 Team Status: Inactive Member Role Status Dates Pee Lakhani MD Primary Care Provider Active Start: December 03, 2024 End: December 14john Jimenez MDAdmit ProviderActiveStart: December 03, 2024 End: December 14lexlatrell Acosta RNOther ProviderActiveStart: December 03, 2024 End: December 14, 2024Annemarie Bhakta RNOther ProviderActiveStart: December 03, 2024 End: December 14, 2024Angle Monreal RNOther ProviderActiveStart: December 03, 2024 End: December 14, 2024Cindy Reveles RNOther ProviderActiveStart: December 03, 2024 End: December 14, 2024Lena Wasserman RNOther ProviderActiveStart: December 03, 2024 End: December 14, 2024Liv Camara RNOther ProviderActiveStart: December 03, 2024 End: December 14, 2024Yonis Alves MDOther ProviderActiveStart: December 03, 2024 End: December 14, 2024Ronbairon Duffy DOOther ProviderActiveStart: December 03, 2024 End: December 14, 2024Mushuy Huerta MDOther ProviderActiveStart: December 03, 2024 End: December 14, 2024Connor Oliveros DOOther ProviderActiveStart: December 03, 2024 End: December 14ndamanda Hearn MDOther ProviderActiveStart: December 03, 2024 End: December 14, 2024RuAneesh Douglass ProviderActiveStart: December 03, 2024 End: December 14, 2024Michaejose Quiros DOOther ProviderActiveStart: December 03, 2024 End: December 14, 2024Navirginia Moore MDOther ProviderActiveStart: December 03, 2024 End: December 14, 2024Lyrashel Daniels APRNOther ProviderActiveStart: December 03, 2024 End: December 14, 2024Yakov Hodges MDOther ProviderActiveStart: December 03, 2024 End: December 14asselizabeth Hatch MDOther ProviderActiveStart: December 03, 2024 End: December 14, 2024Maravinder Hickey MDOther ProviderActiveStart: December 03, 2024 End: December 14, 2024Safrocio Moran MDOther ProviderActiveStart: December 03, 2024 End: December 14, 2024Michaejose Cochran DOOther ProviderActiveStart: December 03, 2024 End: December 14, 2024Firobed Tracey MDOther ProviderActiveStart: December 03, 2024 End: December 14, 2024Earjose Huerta MDOther ProviderActiveStart: December 03, 2024 End: December 14lowell Bonner NP-COther ProviderActiveStart: December 03, 2024 End: December 14dNikos Holleyher ProviderActiveStart: December 03, 2024 End: December 14, 2024J Luis Hebert MDOther ProviderActiveStart: December 03, 2024 End: December 14, 2024Naeelizabeth Hope MDOther ProviderActiveStart: December 03, 2024 End: December 14, 2024Tino Calixto MDOther ProviderActiveStart: December 03, 2024 End: December 14, 2024Marline Rivera MDOther ProviderActiveStart: December 03, 2024 End: December 14don Joel MDOther ProviderActiveStart: December 03, 2024 End: December 14, 2024Trinity Tai , DOOther ProviderActiveStart: December 03, 2024 End: December 14, 2024Andres Flores , DOOther ProviderActiveStart: December 03, 2024 End: December 14, 2024Linadan Marin , APRNOther ProviderActiveStart: December 03, 2024 End: December 14, 2024Az Bai , DOOther ProviderActiveStart: December 03, 2024 End: December 14, 2024Luciana Dempsey MDOther ProviderActiveStart: December 03, 2024 End: December 14, 2024Patim Forde , APRNOther ProviderActiveStart: December 03, 2024 End: December 14licyariel Hernandez , APRNOther ProviderActiveStart: December 03, 2024 End: December 14sony Hernandez MDOther ProviderActiveStart: December 03, 2024 End: December 14, 2024Dakwasi Keith MDOther ProviderActiveStart: December 03, 2024 End: December 14, 2024Michael Savage , DOOther ProviderActiveStart: December 03, 2024 End: December 14angel Rea DOOther ProviderActiveStart: December 03, 2024 End: December 14, 2024Gavin Calixto MDOther ProviderActiveStart: December 03, 2024 End: December 14allan Sampson MDOther ProviderActiveStart: December 03, 2024 End: December 14robert Ortega , APRNOther ProviderActiveStart: December 03, 2024 End: December 14, 2024Ivonne Castro MDOther ProviderActiveStart: December 03, 2024 End: December 14malka Light MDOther ProviderActiveStart: December 03, 2024 End: December 14, 2024Jose Antonio Dacosta MDOther ProviderActiveStart: December 03, 2024 End: December 14, 2024Phil Shaikh MDOther ProviderActiveStart: December 03, 2024 End: December 14, 2024Juan M Elise MDOther ProviderActiveStart: December 03, 2024 End: December 14, 2024Praveena Mast APRNOther ProviderActiveStart: December 03, 2024 End: December 14, 2024Niclauren Smith , APRNOther ProviderActiveStart: December 03, 2024 End: December 14, 2024Saumberto Moore RNOther ProviderActiveStart: December 03, 2024 End: December 14, 2024Jose Antonio Camara MDAttending ProviderActiveStart: December 03, 2024 End: December 14, 2024 Team Status: Inactive Member Role Status Dates Pee Lakhani MD Primary Care Provider Active Start: December 22, 2024 End: December 22, 2024Jumando Ceja DOAttending ProviderActiveStart: December 22, 2024 End: December 22, 2024 Team Status: Active Member Role Status Dates Pee Lakhani MD Primary Care Provider Active Start: December 22, 2024 Nishant Ceja DOAttnatalee ProviderActiveStart: December 22, 2024 Team Status: Active Member Role Status Dates Pee Lakhani MD Primary Care Provider Active Start: December 01, 2024 Kay Pageit ProviderActiveStart: December 01, 2024 Justin Garcia MDOther ProviderActiveStart: December 01, 2024 Kassy Mckay MDOther ProviderActiveStart: December 01, 2024 Nishant Ceja DOAttending ProviderActiveStart: December 01, 2024 Nishant Ceja DOOther ProviderActiveStart: December 01, 2024 Janki Lam II, MDOther ProviderActiveStart: December 01, 2024 Rehan Thomas DOOther ProviderActiveStart: December 01, 2024 Luis Alberto Hearn MDOther ProviderActiveStart: December 01, 2024 Team Status: Active Member Role Status Dates Pee Lakhani MD Primary Care Provider Active Start: December 03, 2024 Ammon Frings , DOAdmit ProviderActiveStart: December 03, 2024 Justin Garcia MDOther ProviderActiveStart: December 03, 2024 Kassy Mckay MDOther ProviderActiveStart: December 03, 2024 Nishant Ceja , DOOther ProviderActiveStart: December 03, 2024 Janki Lam II, MDOther ProviderActiveStart: December 03, 2024 Rehan Thomas , DOOther ProviderActiveStart: December 03, 2024 Luis Alberto Hearn MDOther ProviderActiveStart: December 03, 2024 Maria Del Rosario Hernandez MDOther ProviderActiveStart: December 03, 2024 Jose Antonio Camara MDAttending ProviderActiveStart: December 03, 2024 Jose Antonio Camara MDOther ProviderActiveStart: December 03, 2024 Gloria Arrington , APRNOther ProviderActiveStart: December 03, 2024 Levi Waterman Jr, DOOther ProviderActiveStart: December 03, 2024 Paco Jimenez MDOther ProviderActiveStart: December 03, 2024 Team Status: Active Member Role Status Dates Pee Lakhani MD Primary Care Provider Active Start: December 04, 2024 Paco Jimenez MDAdmcleo ProviderActiveStart: December 04, 2024 Tate Silvaending ProviderActiveStart: December 04, 2024 Paco Jimenez MDOther ProviderActiveStart: December 04, 2024 Padmini Acosta , BRISEYDAOther ProviderActiveStart: December 04, 2024 Annemarie Bhakta , BRISEYDAOther ProviderActiveStart: December 04, 2024 Angle Monreal , BRISEYDAOther ProviderActiveStart: December 04, 2024 Cindy Reveles , BRISEYDAOther ProviderActiveStart: December 04, 2024 Lena Wasserman , BRISEYDAOther ProviderActiveStart: December 04, 2024 Liv Camara , BRISEYDAOther ProviderActiveStart: December 04, 2024 Yonis Alves MDOther ProviderActiveStart: December 04, 2024 Kenzie Duffy , DOOther ProviderActiveStart: December 04, 2024 Tom Huerta MDOther ProviderActiveStart: December 04, 2024 Connor Oliveros , DOOther ProviderActiveStart: December 04, 2024 Luis Alberto Hearn MDOther ProviderActiveStart: December 04, 2024 Brie Romero MDOther ProviderActiveStart: December 04, 2024 Ammon Quiros , DOOther ProviderActiveStart: December 04, 2024 Phil Moore MDOther ProviderActiveStart: December 04, 2024 Danyell Daniels , APRNOther ProviderActiveStart: December 04, 2024 Yakov Hodges MDOther ProviderActiveStart: December 04, 2024 Juan Pablo Hatch MDOther ProviderActiveStart: December 04, 2024 Leeanna Hickey MDOther ProviderActiveStart: December 04, 2024 Vin Moran MDOther ProviderActiveStart: December 04, 2024 Ammon Cochran , DOOther ProviderActiveStart: December 04, 2024 Reyes Tracey MDOther ProviderActiveStart: December 04, 2024 Kyle Huerta MDOther ProviderActiveStart: December 04, 2024 Sis Bonner , NET COORDINATOR-COther ProviderActiveStart: December 04, 2024 Yamilet Alejandra , APRNOther ProviderActiveStart: December 04, 2024 J Luis Hebert MDOther ProviderActiveStart: December 04, 2024 Fermín Hope MDOther ProviderActiveStart: December 04, 2024 Tino Calixto MDOther ProviderActiveStart: December 04, 2024 Marline Rivera MDOther ProviderActiveStart: December 04, 2024 Yan Joel MDOther ProviderActiveStart: December 04, 2024 Trinity Tai , DOOther ProviderActiveStart: December 04, 2024 Andres Flores , DOOther ProviderActiveStart: December 04, 2024 Reshma Marin , APRNOther ProviderActiveStart: December 04, 2024 Az Bai DOOther ProviderActiveStart: December 04, 2024 Luciana Dempsey MDOther ProviderActiveStart: December 04, 2024 Diana Forde , APRNOther ProviderActiveStart: December 04, 2024 Lorena Hernandez , APRNOther ProviderActiveStart: December 04, 2024 Amaury Hernandez MDOther ProviderActiveStart: December 04, 2024 Ruben Keith MDOther ProviderActiveStart: December 04, 2024 Michael Savage , DOOther ProviderActiveStart: December 04, 2024 Lesley Rea , DOOther ProviderActiveStart: December 04, 2024 Gavin Calixto MDOther ProviderActiveStart: December 04, 2024 Hernandez Sampson MDOther ProviderActiveStart: December 04, 2024 Marti Ortega , APRNOther ProviderActiveStart: December 04, 2024 Ivonne Castro MDOther ProviderActiveStart: December 04, 2024 Ander Light MDOther ProviderActiveStart: December 04, 2024 Jose Antonio Dacosta MDOther ProviderActiveStart: December 04, 2024 Phil Shaikh MDOther ProviderActiveStart: December 04, 2024 Juan M Elise MDOther ProviderActiveStart: December 04, 2024 Praveena Mast , APRNOther ProviderActiveStart: December 04, 2024 Yeimi Smith , APRNOther ProviderActiveStart: December 04, 2024 Mariam Moore RNOther ProviderActiveStart: December 04, 2024 Team Status: Active Member Role Status Dates Pee Lakhani MD Primary Care Provider Active Start: December 12, 2024 Bree Silvait ProviderActiveStart: December 12, 2024 Paco Jimenez MDAttending ProviderActiveStart: December 12, 2024 Paco Jimenez MDOther ProviderActiveStart: December 12, 2024 Padmini Acosta , BRISEYDAOther ProviderActiveStart: December 12, 2024 Annemarie Bhakta , BRISEYDAOther ProviderActiveStart: December 12, 2024 Angle Monreal , BRISEYDAOther ProviderActiveStart: December 12, 2024 Cindy Reveles , BRISEYDAOther ProviderActiveStart: December 12, 2024 Lena Wasserman , BRISEYDAOther ProviderActiveStart: December 12, 2024 Liv Camara RNOther ProviderActiveStart: December 12, 2024 Yonis Alves MDOther ProviderActiveStart: December 12, 2024 Kenzie Duffy , DOOther ProviderActiveStart: December 12, 2024 Tom Huerta MDOther ProviderActiveStart: December 12, 2024 Connor Oliveros , DOOther ProviderActiveStart: December 12, 2024 Luis Alberto Hearn MDOther ProviderActiveStart: December 12, 2024 Brie Romero MDOther ProviderActiveStart: December 12, 2024 Ammon Quiros , DOOther ProviderActiveStart: December 12, 2024 Phil Moore MDOther ProviderActiveStart: December 12, 2024 Danyell Daniels , APRNOther ProviderActiveStart: December 12, 2024 Yakov Hodges MDOther ProviderActiveStart: December 12, 2024 Juan Pablo Hatch MDOther ProviderActiveStart: December 12, 2024 Leeanna Hickey MDOther ProviderActiveStart: December 12, 2024 Vin Moran MDOther ProviderActiveStart: December 12, 2024 Ammon Cochran DOOther ProviderActiveStart: December 12, 2024 Reyes Tracey MDOther ProviderActiveStart: December 12, 2024 Kyle Huerta MDOther ProviderActiveStart: December 12, 2024 Sis Bonner , NET COORDINATOR-COther ProviderActiveStart: December 12, 2024 Yamilet Alejandra , APRNOther ProviderActiveStart: December 12, 2024 J Luis Hebert MDOther ProviderActiveStart: December 12, 2024 Fermín Hope MDOther ProviderActiveStart: December 12, 2024 Tino Calixto MDOther ProviderActiveStart: December 12, 2024 Marline Rivera MDOther ProviderActiveStart: December 12, 2024 Yan Joel MDOther ProviderActiveStart: December 12, 2024 Trinity Tai DOOther ProviderActiveStart: December 12, 2024 Andres Flores , DOOther ProviderActiveStart: December 12, 2024 Reshma Marin , APRNOther ProviderActiveStart: December 12, 2024 Az Bai , DOOther ProviderActiveStart: December 12, 2024 Luciana Dempsey MDOther ProviderActiveStart: December 12, 2024 Diana Forde , APRNOther ProviderActiveStart: December 12, 2024 Lorena Hernandez , APRNOther ProviderActiveStart: December 12, 2024 Amaury Hernandez MDOther ProviderActiveStart: December 12, 2024 Ruben Keith MDOther ProviderActiveStart: December 12, 2024 Michael Savage , DOOther ProviderActiveStart: December 12, 2024 Lesley Rea , DOOther ProviderActiveStart: December 12, 2024 Gavin Calixto MDOther ProviderActiveStart: December 12, 2024 Hernandez Sampson MDOther ProviderActiveStart: December 12, 2024 Marti Ortega , APRNOther ProviderActiveStart: December 12, 2024 Ivonne Castro MDOther ProviderActiveStart: December 12, 2024 Ander Light MDOther ProviderActiveStart: December 12, 2024 Jose Antonio Dacosta MDOther ProviderActiveStart: December 12, 2024 Phil Shaikh MDOther ProviderActiveStart: December 12, 2024 Juan M Elise MDOther ProviderActiveStart: December 12, 2024 Praveena Mast , APRNOther ProviderActiveStart: December 12, 2024 Yeimi Smith , APRNOther ProviderActiveStart: December 12, 2024 Mariam Moore RNOther ProviderActiveStart: December 12, 2024 Team Status: Inactive Member Role Status Dates Pee Lakhani MD Primary Care Provider Active Start: January 12, 2025 End: January 12, 2025JuJanes Box ProviderActiveStart: January 12, 2025 End: January 12, 2025 Team Status: Inactive Member Role Status Dates Pee Lakhani MD Primary Care Provider Active Start: February 06, 2025 End: February 06, 2025Justin A Brenna , DOAttending ProviderActiveStart: February 06, 2025 End: February 06, 2025 Team Status: Inactive Member Role Status Gabriella Lakhani MD Primary Care Provider Active Start: February 11, 2025 End: February 11, 2025Justin Samra Ceja , DOAttending ProviderActiveStart: February 11, 2025 End: February 11, 2025 Team Status: Active Member Role Status Gabriella Lakhani MD Primary Care Provider Active Start: February 24, 2025 Nishantbre Ceja , DOOther ProviderActiveStart: February 24, 2025 Adali Anders ProviderActiveStart: February 24, 2025 Aneesh Anders ProviderActiveStart: February 24, 2025 Team Status: Inactive Member Role Status Gabriella Lakhani MD Primary Care Provider Active Start: February 24, 2025 End: February 26, 2025Justbre Ceja , DOAdmit ProviderActiveStart: February 24, 2025 End: February 26, 2025Justbre Ceja DOAttending ProviderActiveStart: February 24, 2025 End: February 26, 2025Aneesh Anders ProviderActiveStart: February 24, 2025 End: February 26, 2025 Team Status: Inactive Member Role Status Gabriella Lakhani MD Primary Care Provider Active Start: March 04, 2025 End: March 04, 2025Justbre Ceja , DOAttending ProviderActiveStart: March 04, 2025 End: March 04, 2025 Team Status: Active Member Role/Relationship Status Gabriella Lakhani MD Primary Care Provider Active Team Status: Active Member Role/Relationship Status Gabriella Lakhani MD Primary Care Provider Active Start: February 24, 2025 Nishant Ceja DOOther ProviderActiveStart: February 24, 2025 Adali Anders ProviderActiveStart: February 24, 2025 Aneesh Anders ProviderActiveStart: February 24, 2025 Team Status: Inactive Member Role/Relationship Status Gabriella Lakhani MD Primary Care Provider Active Start: February 24, 2025 End: February 26, 2025Justbre Ceja , DOAdmit ProviderActiveStart: February 24, 2025 End: February 26, 2025JuJanes Box ProviderActiveStart: February 24, 2025 End: February 26, 2025Aneesh Anders ProviderActiveStart: February 24, 2025 End: February 26, 2025 Team Status: Inactive Member Role/Relationship Status Dates Pee Lakhani MD Primary Care Provider Active Start: March 04, 2025 End: March 04, 2025JustJanes Waterman ProviderActiveStart: March 04, 2025 End: March 04, 2025 Team Status: Inactive Member Role/Relationship Status Dates Pee Lakhani MD Primary Care Provider Active Start: May 13, 2025 End: May 13, 2025JuJanes Box ProviderActiveStart: May 13, 2025 End: May 13, 2025 Reason for Visit (unrecogniz ed section and content) ReasonCommentsRash FOR RECORDS PERTAINING TO PATIENTS WHO ARE [...] BE BASED ON THE PRIMARY CLINICAL RECORDS. [facility] [employer] provides no warranty or guarantee of the accuracy or completeness of information in this document.
--- NOTE | 2025-05-22 14:40 | CA_ITS ---
Patient Name: ELENA TREJO MR#: [id number] : 1965 Exam Date: 05/22/2025 Ordering Doctor: DR. ELISABETH SHEA M.D. ECHOCARDIOGRAM REPORT PROCEDURE: CA ECHO DOPPLER COMPLETE INDICATIONS: Pre op, Shortness of breath COMPARISON: None. DESCRIPTION: COMPLETE ECHOCARDIOGRAM Real-time transthoracic echocardiography with 2D, M-mode, spectral and color flow Doppler performed. QUALITY: Technical quality was adequate. LEFT VENTRICLE: Normal chamber size. Borderline left ventricular hypertrophy. Global left ventricular systolic function is normal without wall motion abnormalities. Calculated left ventricular ejection fraction is 65%. LV EF: DIASTOLIC: Grade 2 diastolic dysfunction ATRIAL SEPTUM: Visually appears intact LEFT ATRIUM: Mild dilatation. RIGHT ATRIUM: Normal chamber size. RIGHT VENTRICLE: Normal chamber size. Normal right ventricular systolic function. TRICUSPID VALVE: Normal mobility and thickness. No stenosis with trivial regurgitation. No evidence of pulmonary hypertension. RVSP 34mmHg. MITRAL VALVE: Normal mobility and thickness. No evidence of mitral valve stenosis. There is no mitral annular calcification. Mild mitral regurgitation. AORTIC VALVE: Normal trileaflet appearance. No visible sclerosis. Normal leaflet mobility. No evidence of aortic valve stenosis. Trivial aortic regurgitation. AORTIC ROOT: Normal diameter and appearance.Measuring 3.1cm PULMONIC VALVE: Normal thickness and mobility. No stenosis. No regurgitation. PERICARDIUM: No evidence of pericardial effusion. IVC: Collapes with inspirations. Normal size. PLEURA: CONCLUSION: Borderline left ventricle hypertrophy Normal left ventricle cavity size and normal left ventricle systolic function without wall motion abnormalities, ejection fraction 65% Grade 2 left ventricle diastolic dysfunction Mildly dilated left atrium Normal right ventricle size and systolic function Normal right-sided pressure, RVSP 34 mmHg Mild mitral regurgitation Trivial aortic insufficiency Adult Echocardiography Procedure Report Left Ventricle LVEDD (3.7 - 5.6 cm): 4.61 cm LVESD (2.2 - 4.0 cm): 3.26 cm LVIVS thickness (0.6 - 1.2 cm): 1.00 cm LVPW thickness (0.5 - 1.0 cm): 0.89 cm e': 0.15 m/s E - e': 4.19 LVOT Max Gradient: 4.47 mm[Hg] LVOT Area (cm2): 1.06 m/s Peak Velocity (LVOT): 1.06 m/s Mean Velocity (LVOT): 0.67 m/s LVOT Diameter 2.21 cm Left Ventricular Ejection Fraction: 65.07 % Left Atrium LA Volume Index (2D A2C): 39.41 ml/m2 Left Atrium Systolic Dimension: 4.16 cm Mitral Valve MV E to A Ratio: 1.24 MV Max Gradient: MV Mean Gradient: Mitral Valve A-Wave Peak Velocity: 0.51 m/s Mitral Valve E-Wave Peak Velocity: 0.63 m/s Cardiovascular Orifice Area: Right Ventricle RV Internal Diastolic Dimension: 3.46 cm Aorta AO Root Diam: 3.14 cm Ascending Ao Diam: Aortic Valve AoV Area (Peak Dangelo): 3.49 cm2, 3.49 cm2 AoV Area (VTI): 3.49 cm2, 3.49 cm2 Deceleration [place]: Pressure Half-Time: Peak Velocity(Antegrade Flow): 1.16 m/s Peak Gradient(Antegrade Flow): 5.39 mm[Hg] Mean Velocity(Antegrade Flow): 0.81 m/s Mean Gradient(Antegrade Flow): 3.01 mm[Hg] Velocity Time Integral: 26.98 cm Tricuspid Valve Peak Velocity (Regurgitant Flow): 2.41 m/s, 2.82 m/s Peak Velocity: Pulmonic Valve Mean Gradient: 1.80 mm[Hg], 1.64 mm[Hg] Mean Velocity: 0.63 m/s, 0.59 m/s Peak Velocity: 0.88 m/s, 0.87 m/s Peak Gradient: 3.20 mm[Hg], 2.93 mm[Hg], 3.00 mm[Hg] Right Atrium Right Atrium Systolic Pressure: 42.64 ml, 42.64 ml Dictated by: Elisaebth Shea MD on 05/22/2025 at 17:59 Approved by: Elisabeth Shea MD on 05/22/2025 at 18:06
[2025-05-22 16:01] LABS: Alanine Aminotransferase 43 U/L (16-63); Aspartate Amino Transferase 31 U/L (15-37); Cholesterol 180 mg/dL (<=200); HDL Cholesterol 94 mg/dL (40-60); Triglycerides 68 mg/dL (<=150); VLDL CHOLESTEROL 13.6 mg/dL
== END 2025-05-22 13:48 | disposition home or self-care (01) ==
LOC: LAB 13:48
PROVIDERS: PCP Family Medicine; Visit Provider Internal Medicine Cardiovascular Disease
DX: Z01.818 Encounter for other preprocedural examination (principal); E78.2 Mixed hyperlipidemia; R06.02 Shortness of breath
CPT/HCPCS: 36415; 80061; 84450; 84460; 93306

== ENCOUNTER 2025-05-25 11:46 | Outpatient (OUT) | payer MEDICARE, SELFPAY ==
--- OUTSIDE RECORDS SUMMARY | 2025-05-22 13:00 | XMS_ITS | Encounter Summary ---
Author Organization [facility] Address [address] [place] [address] Care Team Providers Care Hi Lo Driver Name Role Phone Patrice Guadalupe MD Primary Care Provider [phone] Reason for Referral * (Routine) - Pending ReviewSpecialtyDiagnoses / ProceduresReferred By Contact Referred To Contact Diagnoses Pre-op evaluation Atypical chest pain APPIAH (dyspnea on exertion) Procedures ECG 12 lead Reid Shea MD [address] [facility] [address]:[place] [address] Phone: tel: fax: Referral IDStatusReasonStart DateExpiration DateVisits RequestedVisits [id number] * Imaging (Routine) - Pending ReviewSpecialtyDiagnoses / ProceduresReferred By ContactReferred To ContactCardiology Diagnoses Pre-op evaluation Shortness of breath Procedures Transthoracic echo (TTE) complete Reid Shea MD [address] [facility] [address] [place] [address] Phone: tel: fax: Referral IDStatusDiannaasonStphuc DateExpiration DateVisits RequestedVisits [id number] Review Perform Procedure Reason for Visit * ReasonCommentsFollow-upSurgery clearanceLeft hip replacement Jun 01 Dr. Egan recorderMobitz type 1 atrioventricular blockMigraineHyperlipidemia Ostium secundum type atrial septal defectPeripheral venous insufficiency HypertensionNSTEMICoronary Artery Disease Encounter Details DateTypeDepartmentCare Team (Latest Contact Info)Noazggpkrvp64/07/2025 1:[address] [facility] [address] [place] [address] Reid Shea MD [address] [facility] [address] [place] [address] Pre-op evaluation (Primary Dx); Atypical chest pain; APPIAH (dyspnea on exertion); Shortness of breath; Syncope, unspecified syncope type; Benign essential hypertension; Mixed hyperlipidemia; Alcoholism (CMS/HCC) Social History Tobacco UseTypesPacks/DayYears UsedDateSmoking Tobacco: [id number] - mokeless Tobacco: FormerChewQuit: 1985Alcohol UseStandard Drinks/Week AiokhfgnZbi90 (1 standard drink = 0.6 oz pure [...] have you been physically or sexually abused?Unrecognized value11/12/2023TransportationAnswerDate RecordedIn the past 12 months, has lack [...] Assigned at BirthMale 04/21/2023 10:36 AM EDTLegal BhyCvuu53/28/2022 1:37 PM ESTGender IdentityMale 04/21/2023 10:36 AM EDTSexual OrientationHeterosexual or Kysfstuw71/07/2023 10:36 AM EDTdocumented as of this encounter Last Filed Vital Signs Vital SignReadingTime TakenCommentsBlood Lrbuutny510/ 1:06 PM EST Aelsw630605/22/2025 1:06 PM ESTTemperature--Respiratory Rate--Oxygen Miwiayfyyz79% 05/22/2025 1:06 PM ESTInhaled Oxygen Concentration--Weight--Bmenor753.4 cm (6' 1 )05/22/2025 1:06 PM ESTBody Mass Index--documented in this encounter Functional Status * BPAnswerDate of GtyropcbfqDmfdyx455/8605/22/2025 1:06 PM Maty Manzo MA * PulseAnswerDate of KqgxxvzhssQmjmbi5209/07/2025 1:06 PM Maty Manzo MA * Audit Alcohol ScreeningQuestionAnswerDate of AssessmentAuthorHow often do you have a drink containing alcohol? 1:26 PM Maty Manzo MA How many standard drinks containing alcohol do you have on a typical day?2 05/22/2025 1:26 PM Maty Manzo MAHow often do you have six or more drinks on one occasion? 1:26 PM Maty Manzo MAAudit-C Owfci3975 1:26 PM Maty Manzo MA * Patient PositionAnswerDate of BqyfjumwciPjshktMtlnaqo36/07/2025 1:06 PM Maty Urena MA * BPAnswerDate of UgasfwwnajSpwpzj513/8605/22/2025 1:06 PM Maty Manzo MA * PulseAnswerDate of RdptklteihDqzzdy1963/07/2025 1:06 PM Maty Manzo MA * AwW6HgcfpdXoxx of QvrmmatfrkPjfgfh9165/07/2025 1:06 PM Maty Manzo MA * BP LocationAnswerDate of AssessmentAuthorRight arm05/22/2025 1:06 PM Maty Urena MA * Audit Alcohol ScreeningQuestionAnswerDate of AssessmentAuthoow often do you have a drink containing alcohol? 1:26 PM Maty Manzo MA How many standard drinks containing alcohol do you have on a typical day?2 05/22/2025 1:26 PM Maty Manzo MAHow often do you have six or more drinks on one occasion? 1:26 PM Maty Manzo MAAudit-C Xtyku1112 1:26 PM Maty Manzo MA * Patient PositionAnswerDate of OxdcogbxwySerysrPqcmubz57/07/2025 1:06 PM Maty Urena MA documented as of this encounter Progress Notes * Reid Shea MD - 05/22/2025 1:00 PM EST Images from the original note were not included. [place] [facility] - [facility] Subjective Rehan Poole is a 60 y.o. year old male patient being seen [...] Adrenal insufficiency NSTEMI (non-ST elevated myocardial infarction) (CMS/HCC) Alcoholism (CMS/HCC) Other chest pain COVID-19 Diverticulitis Dysphagia APPIAH (dyspnea on exertion) Edema Epigastric pain Groin strain Lumbar radicular pain Other diseases of lung, not elsewhere classified Other instability, left ankle Other specified congenital deformities of feet Pain in left ankle and joints of left foot Pneumonia Primary osteoarthritis of left hip Sprain of left ankle Syncope and collapse Benign essential hypertension Osteoarthritis of knee Recurrent seizures (CMS/HCC) Pure hypercholesterolemia Avascular necrosis of bone of right hip (CMS/HCC) CAD (coronary artery disease) Closed fracture of neck of femur (CMS/HCC) Closed subcapital fracture of right femur (CMS/HCC) Iron deficiency anemia Leukocytosis Moderate protein malnutrition Palpitations Primary localized osteoarthritis of pelvic region and thigh Rash Right lower quadrant pain Right shoulder pain S/P total hip arthroplasty Snoring Stasis dermatitis HPI 05/22/2025 Patient is here today for follow-up visit and and for preop clearance for left hip replacementScheduled 06/01/[address] Zhang. He continues to have shortness of breath with dyspnea on exertion and it responds to inhalers. He states that he did not have the echo ordered last visit because he was in the hospital with COPD exacerbation/upper respiratory infection. He still has occasional but very infrequent and quick chest pain not related to exertion. Denies orthopnea or paroxysmal nocturnal dyspnea or dizziness or palpitations or legs edema 10/01/2024 Patient with history of syncope 2022, he did not have evidence of ischemia. He had loop recorder inserted for 10/15/2023. He also has history of hypertension, hyperlipidemia, hypothyroidism, seizure, He is here today with his for follow-up visit. He reports significant dyspnea on exertion withminimal activities. He is sedentary and he does [...] that he snores. He does not feel sleepyor tired during the daytime. He denies dizziness [...] Diagnosis Date COPD (chronic obstructive pulmonary disease) ([facility]) Hyperlipidemia Hypertension Seizures ([facility]) Syncope Past Surgical History: Procedure Laterality Date CARDIAC CATHETERIZATION No family history on file. Social History Tobacco Use Smoking status: Former Current packs/day: 0.00 Average packs/day: 1 pack/day for 38.0 years (38.0 ttl pk-yrs) Types: Cigarettes Start date: 1982 Quit date: 2020 Years since quittin.8 Smokeless tobacco: Former Types: Chew Quit date: 1984 Vaping Use Vaping status: Never Used Substance Use Topics Alcohol use: Yes Alcohol/week: 14.0 standard drinks of alcohol Types: 14 Cans of beer per week Drug use: Never Allergies Allergies Allergen Reactions [place] Anaphylaxis Penicillins Angioedema Procaine Unknown Medications Current Outpatient Medications: albuterol 90 mcg/actuation inhaler, Inhale 2 puffs every 6 (six) hours if needed for wheezing., Disp: , Rfl: aspirin 81 mg EC tablet, Take 162 mg by mouth in the morning., Disp: , Rfl: atorvastatin (Lipitor) 10 mg tablet, Take 10 mg by mouth in the morning., Disp: , Rfl: diclofenac (Voltaren) 75 mg EC tablet, Take 1 tablet by mouth Twice daily at 6am and 6pm., Disp: , Rfl: Flomax 0.4 mg 24 hr capsule, Take 0.4 mg by mouth in the morning., Disp: , Rfl: isosorbide mononitrate ER (Imdur) 30 mg 24 hr tablet, Take 30 mg by mouth in the morning., Disp: , Rfl: levothyroxine (Synthroid, Levoxyl) 125 mcg tablet, Take 250 mcg by mouth before breakfast., Disp: ,Rfl: metoprolol tartrate (Lopressor) 25 mg tablet, Take 1 tablet (25 mg) by mouth in the morning and at bedtime. (Patient taking differently: Take 50 mg by mouth in the morning.), Disp: 60 tablet, Rfl: 0 nitroglycerin (Nitrostat) 0.4 mg SL tablet, Place 1 tablet (0.4 mg) under the tongue every 5 (five)minutes if needed for chest pain. May repeat dose every 5 minutes for up to 3 doses total., Disp: 100 tablet, Rfl: 11 rimegepant (Nurtec ODT) 75 mg tablet,disintegrating, Take 75 mg by mouth 1 (one) time each day at the same time. (Patient taking differently: Take 75 mg by mouth if needed.), Disp: , Rfl: sildenafil (Viagra) 100 mg tablet, Take 100 mg by mouth if needed., Disp: , Rfl: tiZANidine (Zanaflex) 4 mg tablet, Take 4 mg by mouth at bedtime., Disp: , Rfl: topiramate (Topamax) 100 mg tablet, Take 100 mg by mouth in the morning and at bedtime. 100mg in kh970ej in pm, Disp: , Rfl: triamcinolone (Kenalog) 0.1 % cream, Apply 0.01 Applications topically two times daily., Disp: , Rfl: amitriptyline (Elavil) 50 mg tablet, Take 50 mg by mouth in the morning. (Patient not taking: Reported on 05/22/2025), Disp: , Rfl: dutasteride (Avodart) 0.5 mg capsule, Take 0.5 mg by mouth in the morning. (Patient not taking: Reported on 05/22/2025), Disp: , Rfl: folic acid (Folvite) 1 mg tablet, 1 (one) time each day at the same time. (Patient not taking: Reported on 05/22/2025), Disp: , Rfl: levETIRAcetam (Keppra) 750 mg tablet, Take 750 mg by mouth in the morning and at bedtime. (Patient not taking: Reported on 05/22/2025), Disp: , Rfl: montelukast (Singulair) 10 mg tablet, Take 10 mg by mouth in the morning. (Patient not taking: Reported on 05/22/2025), Disp: , Rfl: traZODone (Desyrel) 100 mg tablet, Take 100 mg by mouth at bedtime. (Patient not taking: Reported on 05/22/2025), Disp: , Rfl: Objective Visit Vitals BP 141/86 (BP Location: Right arm, Patient Position: Sitting) Pulse 64 Ht 1.854 m (6' 1 ) SpO2 97% BMI 29.42 kg/m?? Smoking Status Former BSA 2.28 m?? Physical exam: GENERAL: alert and oriented x3, well developed, in no acute distress. HEAD: atraumatic, normocephalic. EYES: ELEANOR, EOMI. NECK: trachea midline, no JVD present, no carotid bruits present. CARDIAC: S1, S2 present. RRR. No murmur, rubs, or gallops. RESPIRATORY: CTAB, no increased effort of breathing, no rales, rhonchi, or wheezing. ABDOMEN: soft, nontender, nondistended. EXTREMITIES: no lower extremity edema. Skin discoloration suggestive of venous stasis. NEURO: strength/sensation equal and symmetric in bilateral upper and lower extremities. PSYCH: appropriate mood, affect, and judgement. Recent Labs 05/20/2025 White blood count 7.1, hemoglobin 13, hematocrit 38.7, platelets 255 INR 0.93, PTT 26.6 Sodium 136, potassium 4.7, BUN 7, creatinine 0.92, GFR above 60, glucose 91, calcium 8.3 Total bilirubin 0.5, AST 31, ALT 45, alk phos 118, total protein 6.7, albumin 3.4 12/01/2024 46, normal less than 20 CRP 2.11, normal less than 0.5 Lab Results Component Value Date GLUCOSE 96 05/28/2023 CALCIUM 9.3 05/28/2023 NA 133 (L) 05/28/2023 K 3.5 05/28/2023 CO2 19 (L) 05/28/2023 CL 106 05/28/2023 BUN 10 05/28/2023 CREATININE 0.82 05/28/2023 Lab Results Component Value Date WBC 14.05 (H) 05/28/2023 HGB 11.6 (L) 05/28/2023 HCT 34.4 (L) 05/28/2023 MCV 100.0 (H) 05/28/2023 PLT 232 05/28/2023 Lab Results Component Value Date CHOL 115 (L) 05/28/2023 Lab Results Component Value Date HDL 43 05/28/2023 Lab Results Component Value Date LDLCALC 58 05/28/2023 Lab Results Component Value Date TRIG 72 05/28/2023 No components found for: CHOLHDL Lab Results Component Value Date ALT 18 05/28/2023 AST 12 (L) 05/28/2023 ALKPHOS 95 05/28/2023 BILITOT 0.4 05/28/2023 Lab Results Component Value Date TSH 0.15 (L) 05/28/2023 Imaging and other tests EKG today 05/22/2025 showed normal sinus rhythm, heart rate 64 bpm, low voltage QRS, borderline EKG EK05/29/2023 Normal sinus rhythm Low voltage QRS Borderline ECG Echo: 09/13/2023 at [place] Lexiscan nuclear stress test: 05/28/2023 Negative perfusion stress test for ischemia, Normal myocardial perfusion with soft tissue artifact,Hyperdynamic global left ventricular systolic function, EF is 75% No transient ischemia dilatation and Negative Lexiscan ECG stress test for ischemia LOOP IMPLANT PROCEDURE NOTE DATE OF PROCEDURE: 10/15/23 PERFORMING PHYSICIAN: Dr Irma Villagran/ Dr. Thong Gabriel INDICATIONS FOR PROCEDURE: 1. SVT/AF surveillance Assessment/Plan Preop clearance for total hip replacement by Dr. Zhang Other chest pain, sharp at rest, lasting for seconds, Most likely musculoskeletal, he had this for a long time, he had a stress test in the past 05/2023 which was normal. He is on aspirin and Toprol-XL. He was previously on Ranexa and Imdur which did not change his symptoms therefore they were discontinued last visit Dyspnea on exertion History of syncope, no recurrence. Status post loop recorder implant October 2023 No arrhythmia noted on loop recorder so far Hypertension, he is on metoprolol 25 mg twice daily and Imdur, well-controlled Hyperlipidemia, he used to be on atorvastatin which he stopped on his own Overweight, BMI 29.4 kg/m?? Former smoker 2 packs/day since he was 21 and he quit 6 years ago Alcohol use 2 beers every night since he was 21-year-old History of COPD Plan: Continue aspirin and metoprolol and Imdur I will obtain echocardiographic study to evaluate for dyspnea on exertion and before clearing for surgery. I will contact him with the result and with the recommendations regarding surgery The patient was advised to start walking every day aiming for 1 mile per day 5 days a week. I will obtain fasting lipids and restart him on atorvastatin if indicated. The patient was advised regarding the importance of alcohol cessation. Potential adverse effects were discussed including but not limited to cirrhosis and cardiomyopathy. Follow-up in 6 months Reid Shea MD,[facility] documented in this encounter Plan of Treatment NameTypePriorityAssociated DiagnosesOrder ScheduleLipid panelLabRoutine Mixed hyperlipidemia Expected: 05/22/2025 (Approximate), Expires: 05/22/2026STLabRoutine Mixed hyperlipidemia Expected: 05/22/2025 (Approximate), Expires: 05/22/2026LTLabRoutine Mixed hyperlipidemia Expected: 05/22/2025 (Approximate), Expires: 05/22/2026Transthoracic echo (TTE) completeEchocardiographyRoutine Pre-op evaluation Shortness of breath Expected: 05/22/2025 (Approximate), Expires: 05/22/2027documented as of this encounter Goals GoalPatient Goal TypeAssociated ProblemsRecent ProgressPatient-Stated?Author Follow your diet plan as advised by your watermelon harvesting supervisor Leona Shrestha, RN Follow your diet plan as advised by your watermelon harvesting supervisor Leona Etienne, RNdocumented as of this encounter Procedures Procedure NamePriorityDate/TimeAssociated DiagnosisCommentsECG 12-LEADRoutine 05/22/2025 1:46 PM EST Pre-op evaluation Atypical chest pain APPIAH (dyspnea on exertion) ECG 12 LEAD UNIT ZIWUMBSTABljocxb71/07/2025 1:05 PM EST Pre-op evaluation documented in this encounter Results * ECG 12 lead (05/22/2025 1:46 PM EST)Specimen (Source)Anatomical Location / LateralityCollection Method / VolumeCollection TimeReceived Time Narrative Reid Shea MD - 05/22/2025 1:46 PM EST Normal sinus rhythm, heart rate 64 bpm, low voltage QRS, borderline EKG Authorizing ProviderResult TypeResult Danita ESCAMILLA ORDERABLESFinal Result * ECG 12 lead unit performed (05/22/2025 1:05 PM EST)Specimen (Source)Anatomical Location / LateralityCollection Method / VolumeCollection TimeReceived Time Narrative Authorizing ProviderResult TypeResult StatusReid ESCAMILLA ORDERABLESFinal Result documented in this encounter Visit Diagnoses Diagnosis Pre-op evaluation- Primary Atypical chest pain Other chest pain APPIAH (dyspnea on exertion) Other dyspnea and respiratory abnormality Shortness of breath Syncope, unspecified syncope type Benign essential hypertension Essential hypertension, benign Mixed hyperlipidemia Alcoholism (CMS/HCC) Other and unspecified alcohol dependence, unspecified drinking behavior documented in this encounter Care Teams Team MemberRelationshipSpecialtyStart DateEnd Patrice Guadalupe MD [address] [facility] [place] [id number] PCP - Hgsvlme50/7/23documented as of this encounter
--- OUTSIDE RECORDS SUMMARY | 2025-05-25 11:50 | XMS_ITS | Clinical Summary ---
Author Organization [facility] Address [address] [place] [address] Care Team Providers Care System Support Analyst Name Role Phone Patrice Guadalupe MD Primary Care Provider [phone] Allergies Active AllergyReactionsCriticalityNoted DateCommentsPenicillinsSwelling 10/29/2008 Medications MedicationSigDispense QuantityRefillsLast FilledStart DateEnd DateStatus diltiazem hcl(CARTIA XT 240 MG 24 HR CAP) Take one tablet once xzzwj858ctive doxazosin mesylate(CARDURA 4 MG TAB) Take one(1) [...] do a RONI Acute, but ill-defined, cerebrovascular arijaxk3210/29/2008 Overview (10/29/2008): TIA 09/2008: Left sided weakness, [...] of intractable migraine without mention of status wxblbartfyn65/16/2009Chest pain, unspecified 10/29/2008 Overview (10/29/2008): Stress Test 2 years ago OK Unspecified essential vikdvbklwixq09/16/2009Mixed vdzssbdzfakltj94/16/2009 Personal history of tobacco use, presenting hazards to kijfsr2710/29/2008 Overview (10/29/2008): Smoke <1PPD x23 years quit for a few years and now currently smokes <1PPD Other diseases of lung, not elsewhere rameypupzk85/16/2009Dizziness and zkwktmedp37/16/2009Generalized osteoarthrosis, unspecified site10/29/2008 Overview (10/29/2008): L4-L5 s/p Neck surgery 2000 Depressive disorder, not elsewhere yqhbcujmob43/16/2009 Social History Tobacco UseTypesPacks/DayYears UsedDateSmoking Tobacco: Every DayCigarettes0.524 Comments:did quit for 9 nont hs @ 2 yrs ago Alcohol UseStandard Drinks/WeekCommentsNo0 (1 standard drink = 0.6 oz pure alcohol)Sex and Gender InformationValueDate RecordedSex Assigned at BirthNot on fileLegal FatAbye26/02/2012 9:29 AM ESTGender IdentityNot on fileSexual OrientationNot on file Last Filed Vital Signs Vital SignReadingTime TakenCommentsBlood Xuzrenow754/8612/31/2008 12:44 PM EDT (from Extended Vitals)Zijmd316412/31/2008 12:43 PM EDT(from Extended Vitals) Ldzatakaaaz07 ??C (96.8 ??F)11/03/2008 9:48 AM EDTRespiratory Tacm8050 9:48 AM EDTOxygen Nrtjcadgfc186%11/03/2008 9:48 AM EDTInhaled Oxygen Concentration--Rinomr435.8 kg (244 lb 4.3 oz)12/31/2008 12:43 PM WGBZyfzch800.4 cm (6' 1 )11/02/2008 2:00 PM EDTBody Mass Index32.23011/02/2008 2:00 PM EDT Plan of Treatment Health MaintenanceDue DateLast DoneCommentsAnxiety Higimmsnq43/23/1983Depression Sontqvfpv79/23/1983HIV Bijcviiht23/23/1983Hepatitis C Xtwqrsuck53/23/1983 DTaP,Tdap,Td Vaccine (1 - Tdap)02/05/1984CT Zxxyeyuajvdq20/23/2010Cologuard (FIT-DNA)02/04/20104819Mkcltrjllmk86/23/2010Colorectal Cancer Dirnplpzj81/23/2010 Fecal Occult Blood2010Prostate Cancer Screening Tfcftvvsyt82/23/2010 Lfgnymqqrvmzo03/23/2010Diabetes Gxltpyxpa11, 11/03/2008, 10/29/2008Lipid Ktdzzmjlf06Pneumococcal Vaccine: 50+ (1 of 1 - PCV)2015Shingrix Vaccine (1 of 2)2015Covid-19 Vaccine (2024-26 season)2025Influenza Vaccine (#1)2025RSV Vaccine (1 - 1-dose 75+ series)02/05/2040 Procedures Procedure NamePriorityDate/TimeAssociated DiagnosisCommentsCOMPREHENSIVE METABOLIC SUFBRNoopyhm34/18/2009 3:03 PM EDT patent foramen ovale LIPID PANEL, ZVFOHDHIqhwmeq56/16/2009 12:59 PM EDT 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 Def from Last 3 Months or Most Recently Relevant to Health Maintenance Results * (ABNORMAL) COMP METABOLIC PANEL (12/31/2008 3:03 PM EDT)ComponentValueRef RangeTest MethodAnalysis TimePerformed AtPathologist SignatureProtein, Total 7.56.0 - 8.4 g/dLCINCINNATI VA [facility]ICAL [facility] LABORATORYAlbumin4.43.5 - 5.0 g/dL [facility] LABORATORYCalcium9.48.5 - 10.5 mg/dLCINCINNATI VA MEDICAL CENTER LABORATORYBilirubin, Total0.30.0 - 1.5 mg/dLCINCINNATI VA MEDICAL CENTER LABORATORYAlkaline Lveftowlldl5934 - 150 U/LCMERCY [facility] MAIN LABORATORY PQD694 - 40 U/LCPARKVIEW [facility]ALTH AOIPNCXHSZInmrrnc8731 - 100 mg/dL [facility] SKYJWVQONIACO5543 - 25 mg/dLCINCINNATI VA MEDICAL C[facility] LABORATORYCreatinine1.210.70 - 1.40 mg/dLCINCINNATI VA MEDICAL C[facility] LABORATORY Redino081161 - 146 mmol/LCMERCY HEALTH ST. [facility] MAIN LABORATORYPotassium4.53.5 - 5.0 mmol/LCMERCY HE[facility] ST[facility] MAIN WSYTEDKFXKBkceflal86(L)98 - 110 mmol/LCMERCY HE[facility] ST[facility] MAIN DIZAWSSUFJPU07431 - 32 mmol/LCMERCY HEALTH ST. [facility] MAIN LABORATORYAnion Zge721 - 15 mmol/LCMERCY [facility] MAIN IPJXSDGBERUXW590 - 50 U/LCPARKVIEW HEALTH LABORATORYeGFR->60[facility] eGFR-All Other Races>60.[facility] LABORATORYComment: eGFR (Estimated GFR) Units of measure: [...] StatusEmbre Kuhn MDLABORATORYFinal ResultPerforming OrganizationAddressCity/State/ZIP CodePhone Number [facility] [address] [place] [address] * (ABNORMAL) LIPID PANEL BASIC (10/29/2008 12:59 PM EDT)ComponentValueRef Range Test MethodAnalysis TimePerformed AtPathologist XlnvqaufaLbuzxaenbwpp34102 - 149 mg/dLCINCINNATI VA MEDICAL [facility]ENTER LABORATORYCholesterol, Kkspk479(H)100 - 199 mg/dLCINCINNATI [facility] LABORATORYHDL Gzfhdbvzwiw58(L)>45 mg/dLCINCINNATI VA MEDICAL [facility] LABORATORYVLDL Nzmxppshrio673 - 40 mg/dLCINCINNATI [facility] LABORATORYLDL Cholesterol, Fxribghqln308(H)60 - 129 mg/dLCINCINNATI VA MEDICAL [facility]ENTER LABORATORYFasting Rack48yddQXHGSWFIZPARKVIEW HEALTH LABORATORYTC:HDL Ratio6.49(H) 1.00 - 5.00[facility] LABORATORYLDL:HDL Ratio4.78(H)0.50 - 3.55 [facility] LABORATORYNon HDL Aqhxbcywyas039(H)90 - 159 mg/dL [facility] LABORATORYSpecimen (Source)Anatomical Location / LateralityCollection Method / VolumeCollection TimeReceived TimeBlood specimen (specimen)BLOOD SPECIMEN / Smdtxqn1410/29/2008 12:59 PM EDT Narrative Authorizing ProviderResult TypeResult StatusEmbre Kuhn MDLABORATORYFinal ResultPerforming OrganizationAddressCity/State/ZIP CodePhone Number [facility] [address] [place] [address] from Last 3 Months or Most Recently Relevant to Health Maintenance Insurance * Guarantor: Farrukh POOLE TypeRelation to PatientDate of BirthPhone Billing AddressPersonal/QgxfnkYyui1965 [id number] [place] [id number] * Guarantor: Farrukh POOLE TypeRelation to PatientDate of BirthPhone Billing AddressSelf UrwUtzz49 1965 [id number] [place] [phone] Care Teams Team MemberRelationshipSpecialtyStart DateEnd Patrice Guadalupe MD PCP - GeneralFamily Vacmoaaa61/10/15
--- OUTSIDE RECORDS SUMMARY | 2025-05-25 11:50 | XMS_ITS | Clinical Summary ---
Author Organization [facility] Address [address] [place] [address] Care Team Providers Care Willow Worker Name Role Phone Patrice Guadalupe MD Primary Care Provider [phone] Allergies Active AllergyReactionsCriticalityNoted DateCommentsPenicillinsAngioedema 04/20/20237478CuigbrwtGqyaaso76/29/4872KjuxvqbaftDbneerdxdwrBlba43/06/2023 Medications MedicationSigDispense QuantityRefillsLast FilledStart DateEnd DateStatus topiramate [...] times daily.5Active Active Problems ProblemNoted DateDiagnosed DatePre-op hfhqaqjnkh39/07/2025vascular necrosis of bone of right hip05/21/2025AD (coronary artery disease)05/21/2025losed fracture of neck of femur05/21/2025losed subcapital fracture of right femur 05/21/2025Iron deficiency ootxqh3605/21/20259959Szkhpjpfxaox25/06/2025Moderate protein vdkbmtzeopeo75/06/4523Plpreybdrxlr00/06/2025Primary localized osteoarthritis of pelvic region and thigh05/21/2025Rash107/21/2024Right lower quadrant pain 05/21/2025Right shoulder pain05/21/2025S/P total hip gffqcirywsmp24/06/2025 Fimztno4105/21/2025Stasis wzufwemmjw28/06/2025Pure nkaezrklqohbfnctlcsc68/19/2025 Osteoarthritis of knee03/05/20248630Recblmsocf52OVID-19007/17/2023 07/17/20239825Mkfccgxxtqoofh46ysphagia Shortness of fzbpgk00EdemaEpigastric pain Groin ebnmod29Lumbar radicular pain Other instability, left ankleOther specified congenital deformities of feetain in left ankle and joints of left footneumoniarimary osteoarthritis of left hipSprain of left ankle07/17/2023 07/17/2023Syncope and abbtqisr24/02/2024 Assessment & Plan (03/28/2024 10:08 AM EDT): Denies any episodes of syncope or collapse since last visit no seizure activity states overall he is doing well. Adrenal rdtobnanqxywr20/10/2023Mobitz (type) I (Wenckebach's) atrioventricular block04/20/2023 Assessment & Plan (03/28/2024 10:08 AM EDT): Event monitor reviewed no concerning arrhythmias, heart block or pauses Acute goutHypertensionllergic rhinitis enign prostatic hyperplasia without lower urinary tract lhakqkuo83ervical odpistimjnhrc40 Diverticulitis of colonFibromyalgia Xcrknap37astroesophageal reflux ionplwn91 Lfmwkyos45Hypo-osmolality and Intrinsic cwswxp87Irritable bowel lmibmbfx48 Low back painMigraine, unspecified, not intractable, without status memwxahvzkz83Movement foqkezgi60 Hereditary and idiopathic neuropathy, nfuogkjmjrn77Myoclonus Obstructive sleep apnea dssqeifh63isc displacement, jnrdvp51Overweighteripheral venous ipymyffoadngz81Restless legs bodpgrhz26/06/2023 04/20/20236917Tobutyr37/06/2023cquired vqalbchedpgcex90Recurrent /08/2017Depressive disorder, not elsewhere vwwwsckudz53/16/2009 04/20/2023izziness and enbyaajmn08eneralized osteoarthrosis, unspecified site Overview (04/20/2023): L4-L5 s/p Neck surgery 2000 Mixed nbllcwdhhymhco86 Assessment & Plan (03/28/2024 10:07 AM EDT): Lipid abnormalities are well-controlled with Lipitor 10 mg daily Liver function normal No concerning symptoms Ostium secundum type atrial septal mahdyf69 Overview (04/20/2023): OSH Echo 10/20/2008 per Patient [...] history of tobacco use, presenting hazards to gfrrgk9810/29/2008 04/20/2023 Overview (04/20/2023): Smoke <1PPD x23 years [...] GI Other diseases of lung, not elsewhere pcavejrlnf604Benign essential amuhgdwwdqwy87/16/2009 Assessment & Plan (03/28/2024 10:07 AM EDT): Hypertension is currently well-controlled 132/83 Denies any lightheadedness, dizziness, syncope. Continue metoprolol and isosorbide. Resolved Problems ProblemNoted DateDiagnosed DateResolved DateNSTEMI (non-ST elevated myocardial infarction)HyponatremiaOPD exacerbation Hypokalemia Encounters DateTypeDepartmentCare MbmpIfaafkkjmjc33/07/2025 1:00 PM ESTOffice Visit [facility] [address] [place] [phone] Reid Shea MD Pre-op evaluation (Primary Dx); Atypical chest pain; APPIAH (dyspnea on exertion); Shortness of breath; Syncope, unspecified syncope type; Benign essential hypertension; Mixed hyperlipidemia; Alcoholism (CMS/HCC)05/10/2025Orders Only [facility] [address] [place] [phone] Grabiel Collado MD 04/27/2025 7:30 AM EDTAncillary Procedure [facility] [address] [place] [phone] Awareness of ugbjhqjzlc76/25/2025 2:00 PM EDTAncillary Procedure [facility] [address] [place] [phone] Awareness of azueeulcaq39/25/2025Orders Only [facility] [address] [place] [phone] Grabiel Collado MD from Last 3 Months Family History RelationNameStatusCommentsFatherDeceasedMotherAlive Social History Tobacco UseTypesPacks/DayYears UsedDateSmoking Tobacco: HggfrfYctbfepkzw8544246 - mokeless Tobacco: FormerChewQuit: 1985 Tobacco Cessation:Counseling Given: Not Answered Alcohol UseStandard Drinks/XzoaThqvflaiAgx69 (1 standard drink = 0.6 oz pure [...] file05/27/2023Sex and Gender InformationValueDate RecordedSex Assigned at WnxpqOrxk13/07/2023 10:36 AM EDTLegal XhjEcov44/28/2022 1:37 PM ESTGender UoxgwsueShvk28/07/2023 10:36 AM EDTSexual Orientation Heterosexual or Maxcgvqp54/07/2023 10:36 AM EDT Last Filed Vital Signs Vital SignReadingTime TakenCommentsBlood Zhafjcyj149/8611 1:06 PM EST Xrjbn826405/22/2025 1:06 PM IFPUqibdgujjjj84.6 ??C (97.9 ??F)05/28/2023 5:00 PM ESTRespiratory Zwgw701810/15/2023 12:13 PM EDTOxygen Atwkftrbge05%05/22/2025 1:06 PM ESTInhaled Oxygen Concentration--Mabyda538 kg (223 lb)10/01/2024 12:40 PM EDT Ntcizj942.4 cm (6' 1 )05/22/2025 1:06 PM ESTBody Mass Index29.42010/01/2024 12:40 PM EDT Plan of Treatment Health MaintenanceDue DateLast DoneCommentsCT Adqyjrposfhe1965Colonoscopy 1965Colorectal Cancer Rixpltzdg1965FIT-DNA1965FIT1965 FOBT1965Medicare Annual Wellness (AWV)1965 2740Wwgwujgupkwsv1965 Depression Yvzqbqzrz87/23/1977Adult Mifbyux5202/04/1987Zoster Vaccines (1 of 2) 2015Pneumococcal Vaccine: Pediatrics [...] your diet plan as advised by your track inspecting supervisor DietYesFletcher, Leona, BRISEYDA Follow your diet plan as advised by your track inspecting supervisor Leona Etienne, BRISEYDA Medical Devices ImplantedTypeAreaManufacturerDevice IdentifierShelf Expiration DateModel / Serial / LotMonitor,Cardiac,Lux,Dxii+[facility] - [id number] - [id number] Implanted:Qty: 1 on 10/15/2023 by Thong Gabriel [facility] at [facility] HospitalImplantable Loop RecorderNew England Baptist Hospital02/25/[id number] / [id number] / Procedures Procedure NamePriorityDate/TimeAssociated DiagnosisCommentsECG 12-LEADRoutine 05/22/2025 1:46 PM EST Pre-op evaluation Atypical chest pain APPIAH (dyspnea on exertion) ECG 12 LEAD UNIT DRUIONSPFQmhwasz63/07/2025 1:05 PM EST Pre-op evaluation CARDIAC DEVICE CHECK CHECK - CJZROLOedghbv45/27/2025 5:32 PM EDT Awareness of heartbeats CARDIAC DEVICE CHECK - REMOTE - LOOP RECORDER (ILR)Pmwvnku2405/10/2025 12:00 AM EDTCARDIAC DEVICE CHECK CHECK - DKCORMFezdeon32/27/2025 3:13 PM EDT Awareness of heartbeats CARDIAC DEVICE CHECK - REMOTE - LOOP RECORDER (ILR)Jeikybq2803/09/2025 12:00 AM EDTfrom Last 3 Months Results [...] ProviderResult TypeResult StatusReid ESCAMILLA ORDERABLESFinal Result * CARDIAC DEVICE CHECK [...] VolumeCollection TimeReceived Time05/10/2025 Narrative Authorizing ProviderResult TypeResult StatusSamer Roberta Collado [facility] IMPLANTABLE CARDIAC DEVICE PROCEDURESFinal Result from Last 3 Months Insurance Advance Directives * Full Code (Latest Code Status on File) Date ActivatedDate WfjegxqhdqiXmqkzbpd02/12/2023 11:30 PM05/28/2023 7:45 PM * Full Code Date ActivatedDate AzlpxqjruzcApitltib78/6/2023 7:26 PM10 6:28 PM Care Teams Team MemberRelationshipSpecialtyStart DateEnd Date Patrice Guadalupe MD [address] [facility] [place] [address] [address] PCP - Hzrszto51/7/23
--- OUTSIDE RECORDS SUMMARY | 2025-05-25 11:50 | XMS_ITS | Clinical Summary ---
Author Organization [facility] Address [address] [place] [address] Care Team Providers Care Humane Agent Name Role Phone Unavailable Primary Care Provider Unavailabl e Allergies Active AllergyReactionsCriticalityNoted DateCommentsPenicillinsAngioedema, Swelling,Lceexaj4910/29/2008 Swollen throat Medications MedicationSigDispense QuantityRefillsLast FilledStart DateEnd [...] 2 TABLETS BY MOUTH EVERY DAY AT NEMZFWZ00/01/2025Active Topamax 100 MG tablet 1 tablet in [...] underarms, 30 day supply 453.6 g 5Active Active Problems No known active problems Encounters DateTypeDepartmentCare XoejHvkachloxts10/10/2025 11:20 AM EDTOffice Visit [facility] [place] [facility] [address] [place] [address] Katie Rosen PA Stasis dermatitis of both legs (Primary Dx); Encounter for removal of sutures; Rash and other nonspecific skin /10/2025amboo flowsheet [facility] [address] [place] [address] Katie Rosen PA 04/24/20254426Jdtifs01/08/2025Results Follow-Up [facility] [address] [place] [address] Katie Rosen PA Dermatopathology exam04/13/2025 11:10 AM EDTOffice Visit [facility] [address] [place] [address] Katie Rosen PA Rash and other nonspecific skin alfeuyka44/29/2025amboo flowsheet [facility] [place] [facility] [address] [place] [address] Katie Rosen PA 04/13/20251552Grbham50/25/2025Telephone [facility] [address] [place] [address] Liliya Mayfield LPN Care Bodpyaevjerb50/22/2025 12:20 PM EDTOffice Visit [facility] [place] [facility] [address] [place] [address] Katie Rosen PA Rash and other nonspecific skin eruption (Primary Dx)03/06/2025amboo flowsheet [facility] [address] [place] [phone] Katie Rosen PA 03/06/2025Travelfrom Last 3 Months Social History Tobacco UseTypesPacks/DayYears UsedDateSmoking Tobacco: FormerCigarettes Smokeless Tobacco: Never Tobacco Cessation:Counseling Given: Not Answered Alcohol UseStandard Drinks/WeekCommentsYes0 (1 standard drink = 0.6 oz pure alcohol)Sex and Gender InformationValueDate RecordedSex Assigned at BirthNot on fileLegal BwaPkcv7011/13/2022 8:33 PM EDTGender IdentityNot on fileSexual OrientationNot on file Last Filed Vital Signs Vital SignReadingTime TakenCommentsBlood Aijmwdfe837/3769204/25/2022 12:00 PM EDT Pulse--Temperature--Respiratory Rate--Oxygen Saturation--Inhaled Oxygen Concentration--Zanrqn886 kg (238 lb)04/25/2022 12:00 PM CRKPozbtp989 cm (6' 2 ) 04/25/2022 12:00 PM EDTBody Mass Index30.561 12:00 PM EDT Plan of Treatment DateTypeDepartmentCare Team (Latest Contact Info)Mfplqltvfil71/11/2025 10:50 AM ESTOffice Visit [facility] [address] [place] [phone] Katie Rosen PA [address] [place] [address] Procedures Procedure NamePriorityDate/TimeAssociated DiagnosisCommentsSKIN / NAIL BIOPSY Wqahajr4304/13/2025 11:11 AM EDT Rash and other nonspecific skin eruption DERMATOPATHOLOGY VILAAahqeyz25/29/2025 12:00 AM EDT Rash and other nonspecific skin eruption from Last 3 Months Results * Lesion biopsy (04/13/2025 11:11 AM EDT) Narrative Ama CannonHUSEYIN - 04/13/2025 11:11 AM EDT Type of [...] for: H&E Photo taken Authorizing ProviderResult TypeResult [facility] PROCEDURE ORDERABLESFinal Result * Dermatopathology exam (04/13/2025 12:00 AM EDT)ComponentValueRef RangeTest MethodAnalysis TimePerformed AtPathologist SignatureSPECIMEN TYPE SPECIMEN: LEFT LOWER LEG - ANTERIOR [facility] ICD10 CodeI83.234DHJTNE DIAGNOSTICSPROTOCOLP - PUNCHAURORA DIAGNOSTICSFinal DiagnosisSPONGIOTIC DERMATITIS WITH [...] inflammation. ??There is mild epidermal spongiosis. [facility] BGPWVWJQCPONZM55817*1[facility] DIAGNOSTICSSpecimen (Source)Anatomical Location / LateralityCollection Method / VolumeCollection TimeReceived TimeSkin Topography unknown / Tmexaky3204/13/2025 11:11 AM EDTComment:Differential Diagnosis: scabies vs. Stasis dermatitis vs. Atopic dermatitis vs. Contact dermatitis Narrative Authorizing ProviderResult TypeResult StatusRyTexas Health Presbyterian Dallas PATHOLOGY ORDERABLESFinal ResultPerforming OrganizationAddressCity/State/ZIP CodePhone Number [facility] from Last 3 Months Insurance
--- OUTSIDE RECORDS SUMMARY | 2025-05-25 11:50 | XMS_ITS | Clinical Summary ---
Author Organization [employer] [facility] Address [id number] [place] [address] Care Team Providers Care Survey Manager Name Role Phone Patrice Guadalupe MD Primary Care Provider [phone] Allergies Active AllergyReactionsCriticalityNoted XftrUfucglbhItfsiiosubj79/08/2017 Swollen throat Rfdsjgswzx19/08/2017 Swollen throat and hives Medications MedicationSigDispense QuantityRefillsLast [...] times a day.Active Active Problems ProblemNoted DateDiagnosed BoxyLyzoyysf31/08/2017Recurrent zqthemlh08/08/2017 Migrainous headache without aura07/23/2016COPD (chronic obstructive pulmonary disease)07/23/2016Acquired dmffqmhwiyqzcj22/08/2017Benign essential hypertension 07/23/2016 Social History Tobacco UseTypesPacks/DayYears UsedDateSmoking Tobacco: Every DayCigarettes Alcohol UseStandard Drinks/WeekCommentsNot Asked0 (1 standard drink = 0.6 oz pure alcohol)recently quit drinking in Mar. would drink average 5-8 beers a day ChildcareAnswerDate OvjwvsfeMoojchgluJbixyzl20/12/2019EmploymentAnswerDate VggqlbayJtuvqvelarKhqauwr39/12/2019Purpose - LifeAnswerDate RecordedPurpose and direction in bzpuFlvtnyt16/11/2021Sex and Gender InformationValueDate Recorded Sex Assigned at BirthNot on fileLegal CtkNvsy5202/18/2015 11:37 AM EDTGender IdentityNot on fileSexual OrientationNot on file Last Filed Vital Signs Vital SignReadingTime TakenCommentsBlood Dkemjxml483/8407/26/2016 7:55 AM EST Zwxzr338607/26/2016 7:55 AM GGPTuzqkmqgfvm64.3 ??C (97.3 ??F)07/26/2016 7:55 AM ESTRespiratory Mabh016507/26/2016 7:55 AM ESTOxygen Shsefsvpvu05%07/26/2016 7:55 AM ESTInhaled Oxygen Concentration--Wwkkss10.6 kg (201 lb 15.1 oz)07/26/2016 5:01 AM ONIBywvas364.4 cm (6' 1 )07/23/2016 5:10 PM ESTBody Mass Index26.64 07/23/2016 5:10 PM EST Plan of Treatment Not on file Medical Devices Not on file Insurance Advance Directives * Full Code (Latest Code Status on File) Date ActivatedDate InactivatedComments07/23/2016 6:19 PM07/26/2016 2:20 PM Care Teams Team MemberRelationshipSpecialtyStart DateEnd Date Patrice Guadalupe MD PCP - General07/23/16
--- OUTSIDE RECORDS SUMMARY | 2025-05-25 11:50 | XMS_ITS | Encounter Summary ---
Author Organization [facility] Address [address] [place] [address] Care Team Providers Care Board Liner Operator Name Role Phone Patrice Guadalupe MD Primary Care Provider [phone] Encounter Details DateTypeDepartmentCare Team (Latest Contact Info)Bjzzrtgvteo35/26/2025Orders Only [facility] [address] [place] [address] Grabiel Collado MD [address] [place] [address] Social History Tobacco UseTypesPacks/DayYears UsedDateSmoking Tobacco: MgnoqpTlkplmsxzc1922893 - mokeless Tobacco: FormerChewQuit: 1985Alcohol UseStandard Drinks/Week XjaeprjdZfn03 (1 standard drink = 0.6 oz pure [...] Assigned at BirthMale 04/21/2023 10:36 AM EDTLegal HrsFmmj39/28/2022 1:37 PM ESTGender IdentityMale 04/21/2023 10:36 AM EDTSexual OrientationHeterosexual or Rspwrymu13/07/2023 10:36 AM EDTdocumented as of this encounter Plan of Treatment Not on file documented as of this encounter Goals GoalPatient Goal TypeAssociated ProblemsRecent ProgressPatient-Stated?Author Follow your diet plan as advised by your associate merchandiser Leona Shrestha, RN Follow your diet plan as advised by your associate merchandiser Leona Etienne, RNdocumented as of this encounter Procedures Procedure NamePriorityDate/TimeAssociated DiagnosisCommentsCARDIAC DEVICE CHECK - REMOTE - LOOP RECORDER (ILR)Gwwvdew6505/10/2025 12:00 AM EDTdocumented in this encounter Results [...] MemberRelationshipSpecialtyStart DateEnd Date Patrice Guadalupe MD [address] [place] [place] [address] PCP - Phspsfn84/7/23documented as of this encounter
--- OUTSIDE RECORDS SUMMARY | 2025-05-25 12:04 | XMS_ITS | CCD ---
Author Organization [facility] CliniSyva Care Team Providers Care General Car Supervisor Yard Name Role Phone LESVIA ., DR GLASGOW [...] Other Provider Kassy Mckay MD Other Provider [phone] Nishant Ceja DO Other Provider Janki Lam MD Other Provider Rehan Thomas DO Other Provider Luis Alberto Hearn MD Attending Provider Maria Del Rosario Hernandez MD Other Provider Jose Antonio Camara MD Other Provider Gloria Arrington APRN Other Provider Levi Waterman DO Other Provider [phone] Paco Jimenez MD Other Provider [phone] Paco Jimenez MD Admit Provider Tony CARD, [...] Provider Dhiraj CARD, Luis Alberto Other Provider Nick CARD, Brie Other Provider Chula CARBAJAL, Ammon Other Provider Oscar CARD, Phil Other Provider Unavailable Danyell Daniels APRN Other Provider Tracie CARD, Yakov Other Provider Juan Pablo Hatch MD Other Provider Ruperto CARD, Leeanna Other Provider Unavailable Vin Moran MD Other Provider Ammon Cochran DO Other Provider Reyes Tracey MD Other Provider Kyle Huerta MD Other Provider Kailey CENTRAL STERILE TECHNICIAN-C, Sis Granados Other Provider Justyn QUILES, Yamilet [...] Other Provider Diana Forde APRN Other Provider [phone] Lorena Hernandez APRN Other Provider David CARD, Amaury Other Provider Unavailable Inna CARD, Ruben Granados Other Provider Hussein DO, Michael Ramos Other Provider [phone] Lesley Rea DO Other Provider Marily CARD, Gavin Campbell Other Provider Heranndez Sampson MD Other Provider Shannon QUILES, Marti Other Provider Unavailable Matthew CARD, Ivonne Other Provider Nadege CARD, Ander Other Provider Jose Antonio Dacosta MD Other Provider Phil Shaikh MD Other Provider Juan M Elise MD Other Provider Praveena Mast APRN Other Provider [phone] Yeimi Smith APRN Other Provider Mariam Moore RN Other Provider Unavailable Jose Antonio Camara MD Attending Provider [phone] Nishant Ceja DO Attending Provider [phone] Nishant Ceja DO Attending Provider Luis Alberto Hearn MD Other Provider Jose Antonio Camara MD Attending Provider [phone] Paco Jimenez MD Attending Provider Levi Waterman DO Other Provider UnavailJuan Pablo Diamond MD Other Provider Unavailable Marily CARD, Tino Other Provider Unavailable Marycruz CARD, Yan Other Provider Unavailable Michael Savage DO Other Provider Unavailable Nadege CARD, Ander Other Provider Unavailable Reina CARD, Ammon Attending Provider [phone] Ammon Huang MD Other Provider Brenna CARBAJAL, Nishant Cabrales Admit Provider [phone] Pee Lakhani MD Primary Care Provider [phone] Paco Jimenez MD Other Provider [phone] Nishant Ceja DO Attending Provider [phone] Brenna CARBAJAL, Nishant Cabrales Other Provider [phone] Unavailable Primary Care Provider UnavailPee Magallanes Primary [...] Huerta Consulting Unavailable Sis Bonner Consulting Unavailable Born, Adjvikki M Consulting Unavailable DoameJ Luis giang E Consulting Unavailab Fermín Verde Consulting Unavailable Tino Calixto Consulting Unavailable Marline Rivera Consulting Unavailable Yan Joel Consulting Unavailable Trinity Tai Consulting Unavailable Andres Flores Consulting Unavailable ObReshma sherman Consulting Unavailable Az Bai Consulting Unavailable DaromaLuciana vernon Consulting Unavailable Diana Forde Consulting Unavailable Lorena Hernandez Consulting Unavailable Amaury Hernandez Consulting Unavailable Ruben Keith Consulting Unavailable Mcihael Savage Consulting Unavailable Lesley Rea Consulting Unavailable [...] ROSEN Attending Unavailable OMER PERKINS Referring Unavailable Pee Lakhani MD Primary Care Provider [phone] Nishant Ceja DO Attending Provider BARBARA WILLS Referring Unavailable MARITZA, JYOTI Referring Unavailable BARBARA WILLS Referring Unavailable MARITZA, JYOTI Referring Unavailable BARBARA WILLS Referring Unavailable MARITZA, JYOTI Referring Unavailable ELISABETH VIDAL Attending Unavailable ELISABETH VIADL Attending Unavailable MARITZA, JYOTI Referring Unavailable MARITZA, JYOTI Referring Unavailable BARBARA WILLS Referring Unavailable Allergies Allergy ClassificationReported Allergen(s)Allergy TypeDate of OnsetReaction(s) Facility (11 sources)Penicillins; Translations: [PENICILLINS]Drug allergy (disorder) 04-20-1129Ltytbdol of Throat, RashThe [facility] (11 sources)strawberry allergenic extract; Translations: [STRAWBERRY]Drug Ijfqwxh32-58-7477Ygizavu Reaction, HivesThe [facility] (11 sources)Procaine; Translations: [procaine]Drug Gresygp19-48-2387Hnjedbd ReactionSelect Medical [facility] (6 sources)PenicillinsDrug Efluzhp63-15-7236Ffwacyivkg, Swelling, UnknownNOMS Healthcare (1 source)PenicillinsDrug allergy (disorder)67-96-1940UkftzurtmSelect Medical [facility]ository (1 source)strawberry allergenic extractDrug Cayigmo55-69-3600CwrvzlnwsSelect Medical [facility] Repository Medications Current Medications MedicationDrug Class(es)DatesSig (Normalized)Sig (Original)acetaminophen 500 mg oral tablet (19 sources)Start: 12-03-2024 End: 72-54-8160mvrf 2 tablets by mouth every eight hours [...] oral tablet (18 sources)Vitamin CStart: 12-03-2024 End: 91-75-1986kjxx 1 tablet by mouth twice daily at mealtimeAscorbic Acid (Vitamin C) (Vitamin C) 500 mg Tablet Active 500 MG PO Twice daily with meals 14 7 0 December 12, 2024 1:20pm Complies with drug therapyaspirin 81 mg chewable tablet (20 sources)Platelet Aggregation Inhibitor, Nonsteroidal Anti-inflammatory Drug Start: 72-89-6916dkiu 1 tablet by mouth twice dailyAspirin 81 mg tablet,chewable Active 81 MG PO Twice daily 74 37 0 February 11, 2025 12:00am Complies with drug therapyStart: 12-01-2024 End: 54-80-6712zfnd 1 tablet by mouth twice dailyAspirin 81 mg tablet Discontinued 81 MG PO Twice daily December 01, 2024 12:00am December 12, 2024 1:20pm aspirin 81 MG chewable tablet 81 mg 1 (one) time each day at the same time Activeatorvastatin 10 mg oral tablet (15 sources)HMG-CoA Reductase InhibitorStart: 65-10-0346pdui 1 tablet by mouth at bedtimeAtorvastatin 10 mg tablet Active 10 MG PO Bedtime December 01, 2024 12:00am Complies with drug therapycalcium carbonate 1500 mg / cholecalciferol 500 unt oral capsule (18 sources)Vitamin DStart: 12-03-2024 End: 96-25-7788wcut 1 capsule by mouth twice dailyCalcium Carbonate-Vitamin D3 (Calcium 600 With Vitamin D3) 600 mg-12.5 mcg (500 unit) capsule Active 1 CAP PO Twice daily 60 0 December 12, 2024 1:20pm Complies with drug therapy cyclobenzaprine hydrochloride 10 mg oral tablet (4 sources)Muscle RelaxantStart: 14-52-3063gmqe 5-10 mg by mouth every eight hoursCyclobenzaprine 10 mg tablet Active 5 - 10 MG PO Q8H 30 14 0 February 11, 2025 12:00am Complies with drug therapydiphenhydrAMINE hydrochloride 25 mg oral capsule (9 sources)Histamine-1 Receptor AntagonistStart: 07-01-7942dvkx 1 capsule by mouth once daily at bedtimeDiphenhydramine Hcl (Allergy (Diphenhydramine)) 25 mg capsule Active 25 MG PO Daily at bedtime December 01, 2024 12:00am Complies with drug therapydocusate sodium 100 mg oral capsule (4 sources)Start: 60-76-4269wsks 1 capsule by mouth twice dailyDocusate Sodium (Colace) 100 mg capsule Active 100 MG PO Twice daily 28 14 0 February 11, 2025 12:00am Complies with drug therapydoxycycline hyclate 100 mg oral tablet (4 sources)Tetracycline-class DrugStart: 50-39-4686fliz 1 tablet by mouth twice dailyDoxycycline Hyclate 100 mg tablet Active 100 MG PO Twice daily 14 7 0 February 11, 2025 12:00am Complies with drug tjephgq83 hr isosorbide mononitrate 30 mg extended release oral tablet (15 sources)Nitrate VasodilatorStart: 01-23-8240mhod 1 tablet by mouth in the morning, then take 1 tablet by mouth every twenty-four hoursIsosorbide Mononitrate 30 mg tablet extended release 24 hr Active 30 MG PO .am December 01, 2024 12:00am Complies with drug therapyivermectin 3 mg oral tablet (6 sources)Antiparasitic, PediculicideStart: 45-74-4419bidnpniznf (Stromectol) 3 MG tablet Indications: Rash and other nonspecific skin eruption Take 6 tablets today and repeat in 1 week 6 tablet 1 03/06/2025 Activelevothyroxine sodium 0.125 mg oral tablet (15 sources)l-ThyroxineStart: 59-33-6304dcon 2 tablets by mouth in the morning Levothyroxine 125 mcg tablet Active 250 MCG PO .am December 01, 2024 12:00am Complies with drug therapymelatonin 12 mg oral tablet (9 sources)Start: 95-35-4318eebv 1 tablet by mouth once daily at bedtime Melatonin 12 mg tablet Active 12 MG PO Daily at bedtime December 01, 2024 12:00am Complies with drug therapymetoprolol tartrate 50 mg oral tablet (15 sources)beta-Adrenergic BlockerStart: 29-36-1428wgpx 1 tablet by mouth twice dailyMetoprolol Tartrate 50 mg tablet Active 50 MG PO Twice daily December 01, 2024 12:00am Complies with drug therapyoxyCODONE hydrochloride 5 mg oral tablet (19 sources)Opioid AgonistStart: 06-69-7234edgs 1 tablet by mouth every four hours as needed for painOxycodone 5 mg tablet Active 5 MG PO Q4H as needed for Pain 42 7 0 February 11, 2025 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 #42 DO NOT FILL UNTIL 02/23/25 Complies with drug therapyStart: 86-86-6050cehw 2 tablets by mouth every four hours as needed for painOxycodone 5 mg Tablet Active 10 MG PO Every 4 hours as needed for Pain Scale 6 - 10 42 7 December 12, 2024 Complies with drug therapyStart: 12-03-2024 End: 74-12-7659elbh 1 tablet by mouth every six hours as needed for pain Oxycodone 5 mg Tablet Discontinued 5 MG PO Every 6 hours as needed for Pain Scale 4 - 7 0 0 December 03, 2024 December 12, 2024 1:21pmpredniSONE 5 mg oral tablet (8 sources)Start: 28-51-6383Nplumfmitd 5 mg tablet Active 5 MG PO daily 30 10 0 March 04, 2025 12:00am Take 5 pills by mouthx2 days, take 4 pills by mouth x2 days, take 3 pills by mouth x2 days, take 2 pills by mouth x2 days, take 1 pill by mouth x2 days. Complies with drug therapytamsulosin hydrochloride 0.4 mg oral capsule (15 sources)alpha-Adrenergic BlockerStart: 10-81-9753pphx 1 capsule by mouth once dailyTamsulosin 0.4 mg capsule Active 0.4 MG PO Daily December 01, 2024 12:00am Complies with drug therapytiZANidine 4 mg oral tablet (15 sources)Central alpha-2 Adrenergic AgonistStart: 91-59-6652luhp 2 tablets by mouth once daily at bedtimetiZANidine (Zanaflex) 4 MG tablet TAKE 2 TABLETS BY MOUTH EVERY DAY AT BEDTIME 02/13/2025 ActiveStart: 34-83-5381dxkj 1 tablet by mouth at bedtimeTizanidine 4 mg tablet Active 4 MG PO Bedtime December 01, 2024 12:00am Complies with drug therapytopiramate 100 mg oral tablet (20 sources)Start: 59-83-3777fskb 2 tablets by mouth at bedtimeTopiramate 100 mg tablet Active 200 MG PO Bedtime December 01, 2024 12:00am Complies with drug therapyStart: 87-07-6550bseh 1 tablet by mouth in the morningTopiramate (Topamax) 100 mg tablet Active 100 MG PO .am December 01, 2024 12:00am Complies with drug therapytraMADol hydrochloride 50 mg oral tablet (8 sources)Opioid AgonistStart: 02-11-2025 End: 09-59-1691sarc 1 tablet by mouth every four hours as needed for pain Tramadol 50 mg tablet Active 50 MG PO Q4H as needed for Pain 42 7 0 February 11, 2025 12:51pm 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 #42 okay to fill pre op 02/11/2025 Complies with drug therapytriamcinolone acetonide 0.001 mg/mg topical ointment (10 sources)CorticosteroidStart: 33-09-4882sqiasfbdejerw (Kenalog) 0.1 % ointment Indications: Stasis dermatitis of both legs Apply (1g) to affected areas (legs/arms), up to twice a day when flared, do not use one the face, groin, or underarms, 30 day supply 453.6 g 5 04/24/2025 ActiveStart: 03-06-2025 End: 92-27-9502ndtknkteyjxrn (Kenalog) 0.1 % cream Indications: Rash and other nonspecific skin eruption Apply (1g) to affected areas (legs/arms), up to twice a day when flared, do not use one the face, groin, or underarms, 30 day supply 454 g 3 03/06/2025 04/24/2025 DiscontinuedStart: 49-56-4934Scdvzvlnzglwe Acetonide 0.5 % cream Active 1 APPLIC TOPICAL Twice daily 15 30 2 February 25, 2025 12:00am RLE dermatitis Complies with drug therapy Completed/Discontinued Medications MedicationDrug Class(es)DatesSig (Normalized)Sig (Original)120 actuat budesonide 0.16 mg/actuat / formoterol fumarate 0.0045 mg/actuat metered dose inhaler (9 sources)Corticosteroid, beta2-Adrenergic AgonistStart: 12-12-2024 End: 05-74-4400ichz 1 puff(s) by inhalation twice dailyBudesonide-Formoterol (Symbicort) 160-4.5 mcg/actuation Hfa Aerosol Inhaler Discontinued 2 PUFF INHA LATION Twice daily 10.2 0 December 12, 2024 12:00am February 06, 2025 12:16pm diclofenac sodium 75 mg delayed release oral tablet (20 sources)Nonsteroidal Anti-inflammatory DrugStart: 12-01-2024 End: 93-67-7228otqk 1 tablet by mouth once dailyDiclofenac Sodium 75 mg tablet,delayed release (DR/EC) Discontinued 75 MG PO Daily 30 0 December 03, 2024 11:46am December 12, 2024 1:20pmtake 1 tablet by mouth twice daily as needed diclofenac (Voltaren) 75 MG EC tablet Take 75 mg by mouth 2 (two) times a day as needed Activedocusate sodium 50 mg / sennosides, [facility] 8.6 mg oral tablet (9 sources)Start: 12-03-2024 End: 41-64-9460opez 2 tablets by mouth twice dailySennosides-Docusate Sodium 8.6-50 mg Tablet Discontinued 2 TAB PO Twice daily 0 December 03, 2024 12:00am December 12, 2024 1:21pmpolyethylene glycol 3350 48817 mg powder for oral solution (9 sources)Osmotic LaxativeStart: 12-03-2024 End: 47-05-7949Flmculytkgah Glycol 3350 (Healthylax) 17 gram Powder In Packet Discontinued 17 GM PO Daily 0 December 03, 2024 12:00am February 06, 2025 12:17pm rivaroxaban 10 mg oral tablet (9 sources)Factor Xa InhibitorStart: 12-03-2024 End: 96-93-8208roqg 1 tablet by mouth once dailyRivaroxaban (Xarelto) 10 mg Tablet Discontinued 10 MG PO Daily 0 December 03, 2024 12:00am November 1:21pm Problems Active Problems Problem ClassificationProblemDateDocumented DateEpisodic/ChronicAcute and unspecified renal failure (1 source)Acute kidney failure, unspecified; Translations: [ACUTE KIDNEY FAILURE UNSPECIFIED]Onset: 84-01-8461FehaltkhYseuwqkbszhxax/social admission (18 sources)Other reduced mobility; Translations: [Impaired mobility and activities of daily living]Onset: 000797-95-0901LqlmnoqhOkdtyxr-sdavkgk disorders (20 sources)Alcohol dependence, uncomplicated; Translations: [Alcohol dependence]Onset: 129126-12-8146NdpsfitRaxjosd dysrhythmias (3 sources)Bradycardia, unspecified; Translations: [Palpitations]Onset: 83-88-5478YxkojtlsUaalkxn obstructive pulmonary disease and bronchiectasis (19 sources)Emphysema, unspecified; Translations: [Chronic obstructive lung disease]Onset: 415933-03-4526LxbnrrqMjoglyoaxy heart failure; nonhypertensive (1 source)Unspecified diastolic (congestive) heart failure; Translations: [UNSPECIFIED DIASTOLIC HEART FAILURE]Onset: 85-31-3886AareksvEmvbpidp atherosclerosis and other heart disease (18 sources)Coronary arteriosclerosis; Translations: [Atherosclerotic heart disease of [place] coronary artery without angina pectoris]Onset: 12-03-2024 29-00-7761KrrnxwsQwcjwkzg of white blood cells (1 source)Elevated white blood cell count, unspecified; Translations: [ELEVATED WHITE BLOOD CELL COUNT UNS]Onset: 22-41-1146LrsgbwcPkiozoods of lipid metabolism (20 sources)Hyperlipidemia; Translations: [Hyperlipidemia, unspecified]Onset: 870616-98-5233MfzfssnY Codes: Fall (1 source)Unspecified fall, initial encounter; Translations: [UNSPECIFIED FALL INITIAL ENCOUNTER]Onset: 20-98-0549LxpynepsXtkkjvjl; convulsions (20 sources)Epilepsy, unspecified, not intractable, without status epilepticus; Translations: [Seizure disorder]Onset: 980720-76-4163RbdwvljIqpftrmqu hypertension (20 sources)Essential (primary) hypertension; Translations: [Hypertensive disorder]Onset: 695160-40-8940KhtjtqqUrsam and electrolyte disorders (11 sources)Hypo-osmolality and hyponatremia; Translations: [Dehydration]Onset: 330647-35-2949YkhsodrxCwhfjmvw of neck of femur (hip) (20 sources)Fracture of neck of femur; Translations: [Fracture of unspecified part of neck of unspecified femur, initial encounter for closed fracture]Onset: 732343-74-8846VvbsumqwViblsfuf; including migraine (1 source)Headache; including migraine; Translations: [HEADACHE UNSPECIFIED] Onset: 28-10-6836Gzbflclinxd of prostate (20 sources)Benign prostatic hyperplasia; Translations: [Benign prostatic hyperplasia without lower urinary tract symptoms]Onset: ChronicHypertension with complications and secondary hypertension (1 source)Hypertensive heart disease with heart failure; Translations: [HTN HEART DISEASE W/HEART FAIL]Onset: 00-06-6526UevmjwwZhmgffiugkiy injury (1 source)Other specified intracranial injury with loss of consciousness of 30 minutes or less, initial encounter; Translations: [OTH SPECIFIED ICI LOC 30 MIN/< INIT]Onset: 77-75-9338BorjrznhNpkrcpp and fatigue (4 sources)Weakness; Translations: [WEAKNESS]Onset: 85-31-5580TejdxymiWckxhjjbsa disorders (1 source)Hormone replacement therapy; Translations: [HORMONE REPLACEMENT THERAPY]Onset: 80-56-1680NrtadhuyNrktlwwmcocgdt (1 source)Unilateral primary osteoarthritis, left hip; Translations: [UNI PRIM OSTEOARTHRITIS LT HIP]Onset: 46-31-4589IlqnihiIyfvx aftercare (1 source)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; Translations: [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 PLANT 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 CURRENT DRUG THERAPY]Onset: 69-06-1129KpbqbfitRrfsg aftercare (1 source)Removal of sutures done; Translations: [Encounter for removal of sutures]75-27-1492KmfkgmqxVrugo bone disease and musculoskeletal deformities (20 sources)Avascular necrosis of bone; Translations: [Idiopathic aseptic necrosis of unspecified bone]38-63-0169AlmuczmDaqkn bone disease and musculoskeletal deformities (7 sources)Idiopathic aseptic necrosis of unspecified bone; Translations: [Aseptic necrosis of bone, site unspecified]Onset: 107909-18-7412Kplqgbo Other bone disease and musculoskeletal deformities (20 sources)Avascular necrosis of bone of hip; Translations: [Idiopathic aseptic necrosis of right femur]83-29-1744HnvqwtgCruyi bone disease and musculoskeletal deformities (2 sources)Idiopathic aseptic necrosis of right femur; Translations: [Aseptic necrosis of head and neck of femur]25-84-1315TtguogjOgaft bone disease and musculoskeletal deformities (2 sources)Idiopathic aseptic necrosis of left femur; Translations: [Aseptic necrosis of head and neck of femur]66-22-4688FghwghuOnsvo connective tissue disease (20 sources)History of total hip arthroplasty; Translations: [Presence of unspecified artificial hip joint]64-98-1501TclhosgKxxwm connective tissue disease (7 sources)Presence of unspecified artificial hip joint; Translations: [Hip joint replacement]Onset: 494520-38-7013KzztakbLblnn connective tissue disease (2 sources)Presence of right artificial hip joint; Translations: [Hip joint replacement]64-94-8690FpypfjpCbisk connective tissue disease (1 source)Arthrodesis status; Translations: [ARTHRODESIS STATUS]Onset: 94-20-5787YdrcssiiHkwte diseases of veins and lymphatics (6 sources)Stasis dermatitis; Translations: [Venous insufficiency (chronic) (peripheral)]59-99-0182FhijambiPrcnd diseases of veins and lymphatics (1 source)Venous insufficiency (chronic) (peripheral); Translations: [Venous insufficiency (chronic) (peripheral)]Onset: 60-92-8785EmaqideeUnpqr diseases of veins and lymphatics (1 source)Disorder of vein of lower extremity; Translations: [Venous insufficiency (chronic) (peripheral)]86-32-6285QrskgblwGjyfa lower respiratory disease (3 sources)Shortness of breath; Translations: [SHORTNESS OF BREATH]Onset: 10-89-7190YlpaqqqgZxbrr lower respiratory disease (2 sources)Other forms of dyspnea; Translations: [Other forms of dyspnea]Onset: 80-87-6584VmmnjmtkTnzsf nervous system disorders (1 source)Other chronic pain; Translations: [OTHER CHRONIC PAIN]Onset: 22-26-9351JhwwwhzOufww non-traumatic joint disorders (20 sources)Pain in right shoulder; Translations: [Right shoulder pain]Onset: 311105-92-6190HnghsyqwGqawv skin disorders (7 sources)Eruption; Translations: [Rash and other nonspecific skin eruption] 16-38-2251WzhdpdriRjgrgaieg (except that caused by tuberculosis or sexually transmitted disease) (1 source)Pneumonia (except that caused by tuberculosis or sexually transmitted disease); Translations: [PNEUMONIA D/T CORONAVIRUS DIS 2019]Onset: 04-05-2022 Screening and history of mental health and substance abuse codes (1 source)Personal history of nicotine dependence; Translations: [PERSONAL HISTORY OF NICOTINE DEPEND]Onset: 73-43-0359PqnwsetgOquf and subcutaneous tissue infections (6 sources)Cellulitis of right lower limb; Translations: [Cellulitis of right lower limb]Onset: 682998-74-8553VtcfzbvrXigqlbxcija; intervertebral disc disorders; other back problems (4 sources)Other intervertebral disc displacement, lumbar region; Translations: [OTH IV DISC DISPLACEMENT LUMBAR RGN]Onset: 91-89-4481HkkmkloHtvhjnpzlux; intervertebral disc disorders; other back problems (6 sources)Radiculopathy, lumbosacral region; Translations: [Radiculopathy, cervical region]Onset: 11-87-6951MarnyddcWsgzpey and strains (1 source)Sprain of unspecified ligament of left ankle, initial encounter; Translations: [SPRAIN UNS LIGAMENTLT ANKLE INIT]Onset: 37-77-8796Ymunlmkx Substance-related disorders (1 source)Nicotine dependence, cigarettes, uncomplicated; Translations: [NICOTINE DEPEND CIGARETTES UNCOMP]Onset: 19-97-3898TkjpdbuOameuwb disorders (20 sources)Hypothyroidism, unspecified; Translations: [Hypothyroidism]Onset: 636419-54-5722BgcgfmoRbbbydfgxwve (3 sources)CONTACT W/AND (SUSP) EXPOS COVID-19; Translations: [CONTACT W/AND (SUSP) EXPOS COVID-19]Onset: 64-94-1129Rbvogcbxkhec (3 sources)LOW BACK PAIN, UNSPECIFIED; Translations: [LOW BACK PAIN, UNSPECIFIED]Onset: 81-13-3155Qiqrjyyzkyur (1 source)PERSONAL HISTORY OF COVID-19; Translations: [PERSONAL HISTORY OF COVID-19]Onset: 03-27-1908Geohgltlnofc (2 sources)COUGH, UNSPECIFIED; Translations: [COUGH, UNSPECIFIED]Onset: 42-79-2177Sufptdevhpvf (16 sources)Please arrange a follow-up appointment once [...] the cause of diseases classified elsewhere] Onset: 89-59-4080QbaetowiEzesral obstructive pulmonary disease and bronchiectasis (2 sources)Bronchitis, not specified as acute or chronic; Translations: [BRONCHITIS NOT SPEC ACUTE/CHRON]Onset: 57-70-6152CxrrvjpuXlsidagkwa and other anemia (1 source)Anemia, unspecified; Translations: [ANEMIA UNSPECIFIED]Onset: 01-20-3823QilrhkyqHzbzpmt (1 source)Other specified mycoses; Translations: [OTHER SPECIFIED MYCOSES]Onset: 45-83-4174JtmwsdldFvbewmzrhca chest pain (7 sources)Chest pain, unspecified; Translations: [Other chest pain]Onset: 20-73-5011XwvrnoraZajvt connective tissue disease (1 source)Myalgia, unspecified site; Translations: [MYALGIA UNSPECIFIED SITE] Onset: 03-27-4784VwdawdoiZstxo gastrointestinal disorders (1 source)Dysphagia, unspecified; Translations: [DYSPHAGIA UNSPECIFIED]Onset: 70-02-1007WqehtlnfCozzp screening for suspected conditions (not mental disorders or infectious disease) (1 source)Other specified abnormal findings of blood chemistry; Translations: [OTH SPEC ABNORMAL FINDINGS BLDCHEM]Onset: 44-34-8689NyjtyeyoSucdahvww (except that caused by tuberculosis or sexually transmitted disease) (4 sources)Pneumonia, unspecified organism; Translations: [PNEUMONIA UNSPECIFIED ORGANISM]Onset: 48-48-0311QwibmkmmPobbzapl codes; unclassified (1 source)Other specified health status; Translations: [Other specified health status]Onset: 66-45-3526OuecuixhNgzkfyehtqju (1 source)LOW BACK PAIN, UNSPECIFIED; Translations: [LOW BACK PAIN, UNSPECIFIED] Onset: 25-91-5841Raruukplkktb (1 source)COUGH, UNSPECIFIED; Translations: [COUGH, UNSPECIFIED]Onset: 38-27-7494Repsxtotpaow (1 source)CONTACT W/AND (SUSP) EXPOS COVID-19; Translations: [CONTACT W/AND (SUSP) EXPOS COVID-19]Onset: 03-17-2022 Results Test NameValueInterpretationReference RangeFacilityOffice Visiton 05-22-2025 Follow-up [id number] Rehan Trejo 1965 Provider Department Center 05/22/2025 37584-YHOLIUELISABETH VIDAL CARD [facility] Family History Family Status - Relation Status Age at Mother Alive Father Level of Service:[address] [place] OFFICE/OUTPATIENT ESTABLISHED MOD MDM 30 MIN Reason for Visit and Comments: Follow-up [369854] - Surgery clearance Left hip replacement Jun 01 Dr. Zhang loop recorderMobitz type 1 atrioventricular block [Other] Migraine [036777] Hyperlipidemia [182] Ostium secundum type atrial septal defect [Other] Peripheral venous insufficiency [Other] Hypertension [042117] NSTEMI [Other] Coronary Artery Disease [187][facility] HospitalOr[facility] Onlyon 10-12-9806Ixrszj [id number] Rehan Trejo 1965 Provider Department Center 05/10/2025 EddKaleePETAR CRANEY [facility] C[facility] HeartVAS No family history on fileNormalUniversPremier Health Atrium Medical CenterLesion biopsy on 75-55-2567Ocrs of biopsy: punch Informed consent: discussed and [...] used: 2 Specimen sent for: H&E Photo [facility] HospitalOrders Onlyon 13-81-0004Ytyauj Only [id number] Rehan Trejo 1965 M Date Provider Department Center 03/09/2025 LIZZ PETAR Roberta [facility] CARD [place] HeartVAS No family history on fileNormalUniversity of Lake Granbury Medical CenterBasic Metabolic Panelon 67-82-7710Xwwtfrryxu Clr Calc Rdwnirnc515.16NoCommunity Health Physician GroupComment on above:Result Comment: PERFORMED BY: [address] [address] PATHOLOGIST [employer] HEAD [employer]ING[employer] SOFIE MONTEIRO M.D.Performed By: #### CBC, CMP wRFX A1C #### [facility] [address] [place] [address] USAGFR/1.73 sq M.predicted MDRD (S/P/Bld) [Vol rate/Area] mL/min/{1.73_m2}NormalThe [facility] Physician GroupComment on above:Performed By: #### CBC, CMP wRFX A1C #### [facility] [address] [place] [address] USABasophils [#/volume] in Blood by Automated countOrdered By: Nishant Ceja on 46-62-5529Yeqgozmqo (Bld) [#/Vol]0.0 10*3/uL0.0-0.2 [facility], Edwin ShawComment on above:Result Comment: PERFORMED BY: [address] [address] PATHOLOGIST [employer] HEAD [employer]ING[employer] SOFIE MONTEIRO M.D.Performed By: #### CBC, CMP wRFX A1C #### [facility] [address] [place] [address] USABasophils/100 leukocytes in Blood by Automated count Ordered By: Nishant Ceja on 86-73-7830Uxqbdqmgx/100 WBC (Bld)0.5 %.[facility], Edwin ShawComment on above:Performed By: #### CBC, CMP wRFX A1C #### [address] [address] USACalcium [Mass/volume] in Serum or PlasmaOrdered By: Nishant Ceja on 52-46-0328Amxodnp [Mass/Vol]8.2 mg/dLLow8.6-10.3FMercy Health St. Elizabeth Youngstown HospitalComment on above:Performed By: #### CBC, CMP wRFX A1C #### [facility] [address] [place] [address] USACarbon dioxide, total [Moles/volume] in Serum or Plasma Ordered By: Nishant Ceja on 52-97-7599GK9 [Moles/Vol]19.9 mmol/LLow21.0-31.0 [facility], Edwin ShawComment on above:Performed By: #### CBC, CMP wRFX A1C #### [facility] [address] [place] [address] USAChloride [Moles/volume] in Serum or PlasmaOrdered By: Nishant Ceja on 40-33-9929Tfovyscs [Moles/Vol]102 mmol/J14-154ZuedgtltuSelect Medical [facility] Rehabilitation Hospital, Edwin ShawComment on above:Performed By: #### CBC, CMP wRFX A1C #### [facility] [address] [place] [address] USAComplete Blood Count Auto Diffon 51-25-1017Rowf Corpuscular HGB Conc33.4 g/zPEbleol39.5-35.6The [facility] Physician GroupComment on above:Performed By: #### CBC, CMP wRFX A1C #### [facility] [address] [place] [address] USANRBC%0.1 /100{WBC}Normal0-0.5The [facility] Physician Group Comment on above:Performed By: #### CBC, CMP wRFX A1C #### [facility] [address] [place] [address] USAWhite Blood Count6.9 [CFU]/mLNormal4.1-10.5The [facility] Physician GroupComment on above:Performed By: #### CBC, CMP wRFX A1C #### [facility] [address] [place] [address] USACreatinine [Mass/volume] in Serum or PlasmaOrdered By: Nishant Ceja on 19-68-0240Iclttwnxvm [Mass/Vol]0.76 mg/dL0.70-1.30[facility], [facility] ShawComment on above:Performed By: #### CBC, CMP wRFX A1C #### [facility] [address] [place] [id number] USAEosinophils [#/volume] in Blood by Automated countOrdered By: Nishant Ceja on 20-78-0006Liwxjdtxupw (Bld) [#/Vol]0.6 10*3/uLHigh0.0-0.45 [facility] ShawComment on above:Performed By: #### CBC, CMP wRFX A1C #### [facility] [address] [place] [address] USAEosinophils/100 leukocytes in Blood by Automated count Ordered By: Nishant Ceja on 26-93-9729Mvbjeuilmch/100 WBC (Bld)8.6 %.[facility], [facility] ShawComment on above:Performed By: #### CBC, CMP wRFX A1C #### [facility] [address] [place] [id number] USAErythrocyte distribution width [Ratio] by Automated count Ordered By: Nishant Ceja on 35-03-7801Oroghgczvkr distribution width (RBC) [Ratio]13.5 %12.0-14.8[facility], Edwin ShawComment on above: Performed By: #### CBC, CMP wRFX A1C #### [facility] [address] [place] [id number] USAErythrocytes [#/volume] in Blood by Automated countOrdered By: Nishant Ceja on 66-70-9194ONO (Bld) [#/Vol]4.31 10*6/uL3.90-5.60[facility] ShawComment on above:Performed By: #### CBC, CMP wRFX A1C #### [facility] [address] [place] [id number] USAGlucose [Mass/volume] in Serum or PlasmaOrdered By: Nishant Ceja on 70-93-4625Flvbrxd [Mass/Vol]77 mg/wB70-893StqqxcytbSelect Medical Cleveland Clinic Rehabilitation Hospital, Edwin ShawComment on above:ADA recommended reference rangeRandom Glucose Reference [...] By: #### CBC, CMP wRFX A1C #### [facility] [address] [place] [id number] USAHematocrit [Volume Fraction] of Blood by Automated count Ordered By: Nishant Ceja on 22-10-4984Peqtlnsitb (Bld) [Volume fraction]42.9 % 38.8-50.0[facility] ShawComment on above:Performed By: #### CBC, CMP wRFX A1C #### [facility] [address] [place] [address] USAHemoglobin [Mass/volume] in BloodOrdered By: Nishant Ceja on 77-80-5582Dtqqrwldyt (Bld) [Mass/Vol]14.3 g/dL13.0-17.0[facility] ShawComment on above:Performed By: #### CBC, CMP wRFX A1C #### [facility] [address] [place] [id number] USALeukocytes [#/volume] corrected for nucleated erythrocytes in Blood by Automated counOrdered By: Nishant Ceja on 16-16-8240FUQ corrected for nucl RBC Auto (Bld) [#/Vol]6.9 10*3/uL4.1-10.5FMercy Health St. Elizabeth Youngstown HospitalLeukocytes [#/volume] in Blood by Automated countOrdered By: Nishant Ceja on 73-38-4155BXX (Bld) [#/Vol]6.9 10*3/uL4.1-10.5FMercy Health St. Elizabeth Youngstown HospitalComment on above:Performed By: #### CBC, CMP wRFX A1C #### [facility] [address] [place] [address] USALymphocytes [#/volume] in Blood by Automated countOrdered By: Nishant Ceja on 76-78-9171Huzpvifzhez (Bld) [#/Vol]2.1 10*3/uL1.00-4.8 [facility] ShawComment on above:Performed By: #### CBC, CMP wRFX A1C #### [facility] [address] [place] [address] USALymphocytes/100 leukocytes in Blood by Automated count Ordered By: Nishant Ceja on 14-91-7773Ewmnixjrmov/100 WBC (Bld)31.0 %.[facility] ShawComment on above:Performed By: #### CBC, CMP wRFX A1C #### [facility] [address] [place] [address] USAST[facility] [Entitic mass] by Automated countOrdered By: Nishant Ceja on 88-97-3720UAQ (RBC) [Entitic mass]33.2 pg27.5-35.2FMercy Health St. Elizabeth Youngstown HospitalComment on above:Performed By: #### CBC, CMP wRFX A1C #### [facility] [address] [place] [address] [facility] Auto (RBC) [Mass/Vol]Ordered By: Nishant Ceja on 84-23-0726CPQC (RBC) [Mass/Vol]33.4 g/dL32.5-35.6FMercy Health St. Elizabeth Youngstown HospitalMCV [Entitic volume] by Automated countOrdered By: Nishant Ceja on 79-11-1477SVX (RBC) [Entitic vol]99.5 fL83.5-101[facility] ShawComment on above:Performed By: #### CBC, CMP wRFX A1C #### [facility] [address] [place] [address] USAMonocytes [#/volume] in Blood by Automated countOrdered By: Nishant Ceja on 88-42-3089Mpvprhiup (Bld) [#/Vol]0.7 10*3/uL0.0-0.8 [facility] ShawComment on above:Performed By: #### CBC, CMP wRFX A1C #### [facility] [address] [place] [address] USAMonocytes/100 leukocytes in Blood by Automated count Ordered By: Nishant Ceja on 58-12-0334Dgdyvbqhs/100 WBC (Bld)10.5 %.[facility] ShawComment on above:Performed By: #### CBC, CMP wRFX A1C #### [facility] [address] [place] [address] USANeutrophils [#/volume] in Blood by Automated countOrdered By: Nishant Ceja on 33-89-7051Afeydwzdnjm (Bld) [#/Vol]3.4 10*3/uL1.8-7.7 [facility] ShawComment on above:Performed By: #### CBC, CMP wRFX A1C #### [facility] [address] [place] [address] USANeutrophils/100 leukocytes in Blood by Automated count Ordered By: Nishant Ceja on 15-24-5096Czkflqnhneb/100 WBC (Bld)49.4 %.[facility] ShawComment on above:Performed By: #### CBC, CMP wRFX A1C #### [facility] [address] [place] [address] USANo Panel InformationOrdered By: Nishant Ceja on 04-23-1304Ayzvjrdwe GFR (CKD-EPI)> 60.0 mL/MinSelect Medical [facility] Pharm[facility] Creatinine Clearance (Oukt007.16[facility] Nucleated erythrocytes [Presence] in Blood by Automated countOrdered By: Nishant Ceja on 08-20-5595Vrkbanxgt RBC Auto Ql (Bld)0.1 /100{WBC}0-0.5FMercy Health St. Elizabeth Youngstown HospitalPlatelet mean volume [Entitic volume] in Blood by Automated countOrdered By: Nishant Ceja on 44-18-4592Xoczjisk mean volume (Bld) [Entitic vol]8.5 fL6.6-10.1FMercy Health St. Elizabeth Youngstown HospitalComment on above: Performed By: #### CBC, CMP wRFX A1C #### [facility] [address] [place] [id number] USAPlatelets [#/volume] in Blood by Automated countOrdered By: Nishant Ceja on 88-24-6643Tfmpsszht (Bld) [#/Vol]164 10*3/fW748-329 [facility] ShawComment on above:Performed By: #### CBC, CMP wRFX A1C #### [facility] [address] [place] [address] USAPotassium [Moles/volume] in Serum or PlasmaOrdered By: Nishant Ceja on 01-19-8555Yheqrnlts [Moles/Vol]4.0 mmol/L3.5-5.1FMercy Health St. Elizabeth Youngstown HospitalComment on above:Performed By: #### CBC, CMP wRFX A1C #### [facility] [address] [place] [address] USASerum or plasma anion gap determinationOrdered By: Nishant Ceja on 64-26-5440Qffms gap [Moles/Vol]12.1 mmol/L6.0-15.0[facility] ShawComment on above:Performed By: #### CBC, CMP wRFX A1C #### [facility] [address] [place] [address] USASodium [Moles/volume] in Serum or PlasmaOrdered By: Nishant Ceja on 87-15-5389Knezov [Moles/Vol]130 mmol/NUeq146-405DsjulpvngSelect Medical Cleveland Clinic Rehabilitation Hospital, Edwin ShawComment on above:Performed By: #### CBC, CMP wRFX A1C #### [place] [id number] USAUrea nitrogen [Mass/volume] in Serum or PlasmaOrdered By: Nishant Cjea on 39-12-1277Iviv nitrogen [Mass/Vol]11 mg/dL7-25[facility], [facility] ShawComment on above:Performed By: #### CBC, CMP wRFX A1C #### [facility] [address] [place] [id number] USABasic Metabolic Panelon 58-21-0907Ilxoz gap [Moles/Vol]8.9 mmol/LNormal6.0-15.0The [facility] Physician GroupComment on above:Performed By: #### CBC, BMP #### [facility] [address] [place] [address] USACalcium [Mass/Vol]8.7 mg/dLNormal8.6-10.3The [facility] Physician GroupComment on above:Performed By: #### CBC, BMP #### [facility] [address] [place] [address] USAChloride [Moles/Vol]98 mmol/MWujbiu98-564Zju [facility] Physician GroupComment on above:Performed By: #### CBC, BMP #### [facility] [address] [place] [address] USACO2 [Moles/Vol]24.2 mmol/XAdcmbg74.0-31.0The [facility] Physician GroupComment on above:Performed By: #### CBC, BMP #### [facility] [address] [place] [address] USACreatinine [Mass/Vol]0.63 mg/dLLow0.70-1.30The [facility] Physician GroupComment on above:Performed By: #### CBC, BMP #### [place] [address] USACreatinine Clr Calc Xohvsmxw525.04NormalThe [facility] Physician GroupComment on above:Result Comment: PERFORMED BY: [place] [address] PATHOLOGIST CIGAR HEAD STRINGER SOFIE MONTEIRO M.D.Performed By: #### CBC, BMP #### [place] [address] USAGFR/1.73 sq M.predicted MDRD (S/P/Bld) [Vol rate/Area] mL/min/{1.73_m2}NormalThe [facility] Physician GroupComment on above:Performed By: #### CBC, BMP #### [place] [address] USAGlucose [Mass/Vol]88 mg/eWKtevqd17-805Lnp [facility] Physician GroupComment on above:Result Comment: Random Glucose Reference Range is dependent on time and content of last meal. Glucose of more than 200 mg/dL in a nonstressed, ambulatory subject supports the diagnosis of Diabetes Mellitus. ADA recommended reference rangePerformed By: #### CBC, BMP #### [place] [address] USAPotassium [Moles/Vol]4.1 mmol/LNormal3.5-5.1The [facility] Physician GroupComment on above:Performed By: #### CBC, BMP #### [place] [address] USASodium [Moles/Vol]127 mmol/PCnh461-603Cwu [facility] Physician GroupComment on above:Performed By: #### CBC, BMP #### [place] [address] USAUrea nitrogen [Mass/Vol]7 mg/dLNormal7-25The [facility] Physician GroupComment on above:Performed By: #### CBC, BMP #### [place] [address] USAComplete Blood Count Auto Diffon 16-73-7992Yeprfwaqr (Bld) [#/Vol]0.1 10*3/uLNormal0.0-0.2The [facility] Physician GroupComment on above: Result Comment: PERFORMED BY: [place] [address] PATHOLOGIST C[employer] HEAD STRINGER SOFIE MONTEIRO M.D.Performed By: #### CBC, BMP #### [place] [address] USABasophils/100 WBC (Bld)1.2 %Normal.The [facility] Physician GroupComment on above:Performed By: #### CBC, BMP #### [place] [address] USAEosinophils (Bld) [#/Vol]0.6 10*3/uLHigh0.0-0.45The [facility] Physician [facility] HospitalComment on above:Performed By: #### CBC, BMP #### [place] [address] USAEosinophils/100 WBC (Bld)6.7 %Normal.The [facility] Physician GroupComment on above:Performed By: #### CBC, BMP #### [facility] [address] [place] [address] USAErythrocyte distribution width (RBC) [Ratio]13.1 %Normal 12.0-14.8The [facility] Physician GroupComment on above:Performed By: #### CBC, BMP #### [place] [address] USAHematocrit (Bld) [Volume fraction]42.1 %Vkidrr44.8-50.0The [facility] Physician GroupComment on above:Performed By: #### CBC, BMP #### [place] [address] USAHemoglobin (Bld) [Mass/Vol]14.0 g/bDIxqlny93.0-17.0The [facility] Physician GroupComment on above:Performed By: #### CBC, BMP #### [place] [address] USALymphocytes (Bld) [#/Vol]2.6 10*3/uLNormal1.00-4.8The [facility] Physician GroupComment on above:Performed By: #### CBC, BMP #### [place] [address] USALymphocytes/100 WBC (Bld)29.7 %Normal.The [facility] Physician GroupComment on above:Performed By: #### CBC, BMP #### [place] [address] USAMCH (RBC) [Entitic mass]33.4 kpZwysnx66.5-35.2The [facility] Physician GroupComment on above:Performed By: #### CBC, BMP #### [place] [address] USAMCV (RBC) [Entitic vol]100.2 hIAuzhon92.5-101The [facility] Physician GroupComment on above:Performed By: #### CBC, BMP #### [place] [address] USAMean Corpuscular HGB Conc33.3 g/fOFioupi70.5-35.6The [facility] Physician GroupComment on above:Performed By: #### CBC, BMP #### [facility] [address] [place] [address] USAMonocytes (Bld) [#/Vol]0.8 10*3/uLNormal0.0-0.8The [facility] Physician GroupComment on above:Performed By: #### CBC, BMP #### [facility] [address] [place] [address] USAMonocytes/100 WBC (Bld)8.8 %Normal.The [facility] Physician GroupComment on above:Performed By: #### CBC, BMP #### [facility] [address] [place] [address] USANeutrophils (Bld) [#/Vol]4.7 10*3/uLNormal1.8-7.7The [facility] Physician GroupComment on above:Performed By: #### CBC, BMP #### [facility] [address] [place] [address] USANeutrophils/100 WBC (Bld)53.6 %Normal.The [facility] Physician GroupComment on above:Performed By: #### CBC, BMP #### [facility] [address] [place] [address] USANRBC%0.2 /100{WBC}Normal0-0.5The [facility]ician Group Comment on above:Performed By: #### CBC, BMP #### [facility] [address] [place] [address] USAPlatelet mean volume (Bld) [Entitic vol]8.6 fLNormal 6.6-10.1The [facility] Physician GroupComment on above:Performed By: #### CBC, BMP #### [place] [address] USAPlatelets (Bld) [#/Vol]186 10*3/pMLwtfbh133-687Xqx [facility] Physician GroupComment on above:Performed By: #### CBC, BMP #### [place] [address] USARBC (Bld) [#/Vol]4.20 10*6/uLNormal3.90-5.60The [facility] Physician GroupComment on above:Performed By: #### CBC, BMP #### [facility] [address] [place] [address] USAWBC (Bld) [#/Vol]8.8 10*3/uLNormal4.1-10.5The [facility] Physician GroupComment on above:Performed By: #### CBC, BMP #### [facility] [address] [place] [address] USAWhite Blood Count8.8 [CFU]/mLNormal4.1-10.5The [facility] Physician GroupComment on above:Performed By: #### CBC, BMP #### [facility] [address] [place] [address] USAAlanine aminotransferase [Enzymatic activity/volume] in Serum or PlasmaOrdered By: Nishant Ceja on 40-55-9807UKG [Catalytic activity/Vol]45 U/LNormal7-52[facility], [facility] ShawComment on above: Performed By: #### CBC, CMP wRFX A1C #### [place] [address] USAAlbumin [Mass/volume] in Serum or Plasma by Bromocresol green (BCG) dye binding methoOrdered By: Nishant Ceja on 21-84-4495Uwgiygp BCG dye [Mass/Vol]4.2 g/dL3.5-5.7FMercy Health St. Elizabeth [facility]stown HospitalAlkaline phosphatase [Enzymatic activity/volume] in Serum or PlasmaOrdered By: Nishant Ceja on 53-94-9298GIH [Catalytic activity/Vol]117 U/PRvsq74-767RgcbrxwjcSelect Medical [facility] Rehabilitation Hospital, Edwin ShawComment on above:Result Comment: PERFORMED BY: [place] [address] PATHOLOGIST [employer] HEAD STRINGER SOFIE MONTEIRO M.D.Performed By: #### CBC, CMP wRFX A1C #### [facility] [address] [place] [address] USAAppearance of UrineOrdered By: Nishant Ceja on 02-06-2025 Appearance (U)ClearNormalClearSelect Medical [facility] Rehabilitation Hospital, Edwin ShawComment on above: Order Comment: Name Collection Type:: Clean-Voided MidstreamPerformed By: #### CBC, CMP wRFX A1C #### [facility] [address] [place] [address] USAAspartate aminotransferase [Enzymatic activity/volume] in Serum or PlasmaOrdered By: Nishant Ceja on 74-31-2184SCX [Catalytic activity/Vol]39 U/VFmfqjl34-01YofzrqrpqSelect Medical [facility] Hospital, Edwin ShawComment on above: Performed By: #### CBC, CMP wRFX A1C #### [facility] [address] [place] [address] USABasophils [#/volume] in Blood by Automated countOrdered By: Nishant Ceja on 13-22-9683Faduecces (Bld) [#/Vol]0.1 10*3/uLNormal0.0-0.2 [facility] ShawComment on above:Result Comment: PERFORMED BY: [place] [address] PATHOLOGIST CIGAR HEAD STRINGER SOFIE MONTEIRO M.D.Performed By: #### CBC, CMP wRFX A1C #### [facility] [address] [place] [address] USABasophils/100 leukocytes in Blood by Automated count Ordered By: Nishant Ceja on 18-07-3362Pmjmtrofr/100 WBC (Bld)0.9 %Normal. [facility], [facility] ShawComment on above:Performed By: #### CBC, CMP wRFX A1C #### [facility] [address] [place] [address] USABilirubin Test strip Ql (U)Ordered By: Nishant Ceja on 32-99-1994Mfjpoross Ql (U)NegativeNegativeSelect Medical [facility] Clinic [facility], [facility] Shaw Bilirubin.total [Mass/volume] in Serum or PlasmaOrdered By: Nishant Ceja on 94-56-8812Vedrutwhh [Mass/Vol]0.6 mg/dLNormal0.3-1.0[facility], [facility] ShawComment on above:Performed By: #### CBC, CMP wRFX A1C #### [facility] [address] [place] [address] USACMP with reflex to A1Con 78-89-2924Yvnyruo [Mass/Vol]4.2 g/dLNormal3.5-5.7The [facility] Physician GroupComment on above:Performed By: #### CBC, CMP wRFX A1C #### [facility] [address] [place] [id number] USAGFR/1.73 sq M.predicted MDRD (S/P/Bld) [Vol rate/Area] mL/min/{1.73_m2}NormalThe [facility] Physician GroupComment on above:Performed By: #### CBC, CMP wRFX A1C #### [facility] [address] [place] [id number] USACalcium [Mass/volume] in Serum or PlasmaOrdered By: Nishant Ceja on 78-76-7246Ohepvaa [Mass/Vol]9.1 mg/dLNormal8.6-10.3FMercy Health St. Elizabeth Youngstown HospitalComment on above:Performed By: #### CBC, CMP wRFX A1C #### [facility] [address] [place] [id number] USACarbon dioxide, total [Moles/volume] in Serum or Plasma Ordered By: Nishant Ceja on 14-78-1621CB1 [Moles/Vol]23.4 mmol/KNdaivj10.0-31.0 [facility], [facility] ShawComment on above:Performed By: #### CBC, CMP wRFX A1C #### [facility] [address] [place] [address] USAChloride [Moles/volume] in Serum or PlasmaOrdered By: Nishant Ceja on 00-57-5631Fctcyyhu [Moles/Vol]98 mmol/SNumtft99-485PxsdpeovySelect Medical [facility] Clinic Rehabilitation Hospital, Edwin ShawComment on above:Performed By: #### CBC, CMP wRFX A1C #### [facility] [address] [place] [id number] USAColor of Urine by AutoOrdered By: Nishant Ceja on 14-36-5971Gevhl (U)Light-yellowNormalYRiverside Methodist Hospital Comment on above:Order Comment: Name Collection Type:: Clean-Voided Midstream Performed By: #### CBC, CMP wRFX A1C #### [facility] [address] [place] [address] USAComplete Blood Count Auto Diffon 91-27-2347Zzmn Corpuscular HGB Conc33.9 g/mEHtmnwp24.5-35.6The [facility] Physician GroupComment on above:Performed By: #### CBC, CMP wRFX A1C #### [facility] [address] [place] [address] USANRBC%0.1 /100{WBC}Normal0-0.5The [facility] Comment on above:Performed By: #### CBC, CMP wRFX A1C #### [facility] [address] [place] [address] USAWhite Blood Count5.4 [CFU]/mLNormal4.1-10.5The [facility] Physician GroupComment on above:Performed By: #### CBC, CMP wRFX A1C #### [place] [address] USACreatinine [Mass/volume] in Serum or PlasmaOrdered By: Nishant Ceja on 64-28-7280Hqlbbawyes [Mass/Vol]0.78 mg/dLNormal0.70-1.30 [facility], Edwin ShawComment on above:Performed By: #### CBC, CMP wRFX A1C #### [place] [address] USAECG 12 lead ECGon 57-63-1269JPN 12 lead ECGUNIVERSITY [facility] [place] [address] [place] [address] Electrocardiograph Report Signed Patient: Rehan Trejo MR#: [id number] : 1965 Acct:[id number] Age/Sex: 60 / M ADM Date: 02/06/25 Loc: Room: Type: [facility] Attending Dr: Nishant Ceja DO Ordering Provider: [...] Signed By Deep Amado MD 0 02/06/[address] [place] [address] Physician GroupEosinophils [#/volume] in Blood by Automated countOrdered By: Nishant Ceja on 08-71-4415Neqlcccxjnf (Bld) [#/Vol]0.1 10*3/uLNormal0.0-0.45[facility], Edwin ShawComment on above:Performed By: #### CBC, CMP wRFX A1C #### [facility] [address] [place] [id number] USAEosinophils/100 leukocytes in Blood by Automated count Ordered By: Nishant Ceja on 30-26-8813Bjlamlkahqa/100 WBC (Bld)2.4 %Normal. [facility], Edwin ShawComment on above:Performed By: #### CBC, CMP wRFX A1C #### [facility] [address] [place] [address] USAErythrocyte distribution width [Ratio] by Automated count Ordered By: Nishant Ceja on 04-35-9660Phdbsmjhens distribution width (RBC) [Ratio]13.9 %Wdpbqc84.0-14.8[facility], Edwin ShawComment on above: Performed By: #### CBC, CMP wRFX A1C #### [facility] [address] [place] [id number] USAErythrocytes [#/volume] in Blood by Automated countOrdered By: Nishant Ceja on 75-97-3212HCO (Bld) [#/Vol]4.08 10*6/uLNormal3.90-5.60 [facility], Edwin ShawComment on above:Performed By: #### CBC, CMP wRFX A1C #### [facility] [address] [place] [address] USAGlucose [Mass/volume] in Serum or PlasmaOrdered By: Nishant Ceja on 20-70-9691Knwihgr [Mass/Vol]82 mg/jHDyvbvk17-957PahlpfwejSelect Medical Cleveland Clinic Rehabilitation Hospital, Edwin ShawComment on above:Performed By: #### CBC, CMP wRFX A1C #### [facility] [address] [place] [address] USAGlucose [Mass/volume] in Urine by Test stripOrdered By: Nishant Ceja on 42-59-0275Bldsswx Test strip (U) [Mass/Vol]Normal mg/dLNormal [facility], Edwin ShawHematocrit [Volume Fraction] of Blood by Automated countOrdered By: Nishant Ceja on 42-87-4953Flzdnxipuf (Bld) [Volume fraction]40.9 %Zgbces62.8-50.0[facility], Edwin ShawComment on above: Performed By: #### CBC, CMP wRFX A1C #### [facility] [address] [place] [id number] USAHemoglobin Test strip Ql (U)Ordered By: Nishant Ceja on 59-75-3620Qlhxpgggkb Ql (U)NegativeNegativeSelect Medical [facility] Clinic [facility], [facility] Shaw Hemoglobin [Mass/volume] in BloodOrdered By: Nishant Ceja on 02-06-2025 Hemoglobin (Bld) [Mass/Vol]13.8 g/fSDmyier34.0-17.0[facility], [facility] ShawComment on above:Performed By: #### CBC, CMP wRFX A1C #### [facility] [address] [place] [address] USAKetones [Presence] in Urine by Test stripOrdered By: Nishant Ceja on 52-31-6373Gbnakkl Ql (U)2+NormalNegativeSelect Medical [facility] Clinic Rehabilitation Hospital, Edwin ShawComment on above:Order Comment: Name Collection Type:: Clean- Voided MidstreamPerformed By: #### CBC, CMP wRFX A1C #### [facility] [address] [place] [address] USALeukocyte esterase [Presence] in Urine by Test strip Ordered By: Nishant Ceja on 92-42-3229Zyeqfmvcz esterase Test strip Ql (U) NegativeNormalNegativeSelect Medical [facility] Rehabilitation Hospital, Edwin ShawComment on above:Order Comment: Name Collection Type:: Clean-Voided MidstreamPerformed By: #### CBC, CMP wRFX A1C #### [facility] [address] [place] [address] USALeukocytes [#/volume] corrected for nucleated erythrocytes in Blood by Automated counOrdered By: Nishant Ceja on 82-44-4275JFC corrected for nucl RBC Auto (Bld) [#/Vol]5.4 10*3/uL4.1-10.5FMercy Health St. Elizabeth Youngstown HospitalLeukocytes [#/volume] in Blood by Automated countOrdered By: Nishant Ceja on 56-74-4807UIX (Bld) [#/Vol]5.4 10*3/uLNormal4.1-10.5FMercy Health St. Elizabeth Youngstown HospitalComment on above:Performed By: #### CBC, CMP wRFX A1C #### [facility] [address] [place] [id number] USALymphocytes [#/volume] in Blood by Automated countOrdered By: Nishant Ceja on 59-36-1428Eowpqkyzuez (Bld) [#/Vol]1.8 10*3/uLNormal 1.00-4.8[facility], [facility] ShawComment on above:Performed By: #### CBC, CMP wRFX A1C #### [facility] [address] [place] [id number] USALymphocytes/100 leukocytes in Blood by Automated count Ordered By: Nishant Ceja on 03-30-0856Mnycowwntjq/100 WBC (Bld)33.6 %Normal. [facility], Edwin ShawComment on above:Performed By: #### CBC, CMP wRFX A1C #### [place] [id number] USAMCH [Entitic mass] by Automated countOrdered By: Nishant Ceja on 30-54-2028TEZ (RBC) [Entitic mass]33.9 vlHjyshq00.5-35.2FMercy Health St. Elizabeth Youngstown HospitalComment on above:Performed By: #### CBC, CMP wRFX A1C #### [facility] [address] [place] [address] USAHC Auto (RBC) [Mass/Vol]Ordered By: Nishant Ceja on 82-82-0315UOLT (RBC) [Mass/Vol]33.9 g/dL32.5-35.6FMercy Health St. Elizabeth Youngstown HospitalMCV [Entitic volume] by Automated countOrdered By: Nishant Ceja on 18-34-5046ERM (RBC) [Entitic vol]100.2 bSVhbmlo06.5-101[facility], [facility] ShawComment on above:Performed By: #### CBC, CMP wRFX A1C #### [place] [address] USAMonocytes [#/volume] in Blood by Automated countOrdered By: Nishant Ceja on 17-18-7103Pcjrcyvvk (Bld) [#/Vol]0.5 10*3/uLNormal0.0-0.8 [facility] ShawComment on above:Performed By: #### CBC, CMP wRFX A1C #### [facility] [address] [place], [place] [address] USAMonocytes/100 leukocytes in Blood by Automated count Ordered By: Nishant Ceja on 72-89-2499Iqnzqzyiw/100 WBC (Bld)10.1 %Normal. [facility], [facility] ShawComment on above:Performed By: #### CBC, CMP wRFX A1C #### [facility] [address] [place], [place] [address] USANeutrophils [#/volume] in Blood by Automated countOrdered By: Nishant Ceja on 48-22-9690Xdvdvrzajmb (Bld) [#/Vol]2.8 10*3/uLNormal1.8-7.7 [facility] ShawComment on above:Performed By: #### CBC, CMP wRFX A1C #### [facility] [address] [place], [place] [address] USANeutrophils/100 leukocytes in Blood by Automated count Ordered By: Nishant Ceja on 56-89-4817Vncgyluqada/100 WBC (Bld)53.0 %Normal. [facility], [facility] ShawComment on above:Performed By: #### CBC, CMP wRFX A1C #### [facility] [address] [place] [address] USANitrite Test strip Ql (U)Ordered By: Nishant Ceja on 58-77-2069Klexaxr Ql (U)NegativeNegativeSelect Medical Cleveland Clinic Rehabilitation Hospital, Edwin ShawNo Panel InformationOrdered By: Nishant Ceja on 81-62-5722Agyoqsaqe GFR (CKD-EPI)> 60.0 mL/MinSelect Medical Cleveland Clinic Rehabilitation Hospital, Edwin ShawPharmacy Creatinine Clearance (Chem N/AFMercy Health St. Elizabeth Youngstown HospitalNucleated erythrocytes [Presence] in Blood by Automated countOrdered By: Nishant Ceja on 58-96-3518Fycytaent RBC Auto Ql (Bld)0.1 /100{WBC}0-0.5FMercy Health St. Elizabeth Youngstown HospitalPlatelet mean volume [Entitic volume] in Blood by Automated countOrdered By: Nishant Ceja on 64-01-5466Ovlbgzhj mean volume (Bld) [Entitic vol]7.9 fLNormal6.6-10.1FMercy Health St. Elizabeth Youngstown HospitalComment on above:Performed By: #### CBC, CMP wRFX A1C #### [facility] [address] [place] [address] USAPlatelets [#/volume] in Blood by Automated countOrdered By: Nishant Ceja on 62-77-3297Qpfntmexo (Bld) [#/Vol]225 10*3/pLVxzond666-974 [facility] ShawComment on above:Performed By: #### CBC, CMP wRFX A1C #### [facility] [address] [place] [address] USAPotassium [Moles/volume] in Serum or PlasmaOrdered By: Nishant Ceja on 98-31-9733Worcuvlva [Moles/Vol]4.1 mmol/LNormal3.5-5.1FMercy Health St. Elizabeth Youngstown HospitalComment on above:Performed By: #### CBC, CMP wRFX A1C #### [facility] [address] [place] [address] USAProtein Test strip (U) [Mass/Vol]Ordered By: Nishant Ceja on 87-74-5962Vclqrxt (U) [Mass/Vol]NegativeNegativeSelect Medical Cleveland Clinic Rehabilitation Hospital, Edwin ShawProtein [Mass/volume] in Serum or PlasmaOrdered By: Nishant Ceja on 31-56-6040Shpknza [Mass/Vol]6.9 g/dLNormal6.4-8.9[facility] ShawComment on above:Performed By: #### CBC, CMP wRFX A1C #### [place] [address] USASerum globulin measurement by calculation (mass/volume) Ordered By: Nishant Ceja on 64-24-8248Nqzezrbv (S) [Mass/Vol]2.7 g/dLNormal [facility] ShawComment on above:Performed By: #### CBC, CMP wRFX A1C #### [place] [address] USASerum or plasma albumin/globulin mass ratioOrdered By: Nishant Ceja on 20-02-8086Sesyqrf/Globulin [Mass ratio]1.6 {ratio}Normal [facility] ShawComment on above:Performed By: #### CBC, CMP wRFX A1C #### [place] [address] USASerum or plasma anion gap determinationOrdered By: Nishant Ceja on 64-77-4016Vmycv gap [Moles/Vol]14.7 mmol/LNormal6.0-15.0[facility], [facility] ShawComment on above:Performed By: #### CBC, CMP wRFX A1C #### [place] [address] USASodium [Moles/volume] in Serum or PlasmaOrdered By: Nishant Ceja on 88-01-2604Eclixi [Moles/Vol]132 mmol/MJsb392-660QoncvazatSelect Medical Cleveland Clinic Rehabilitation Hospital, Edwin ShawComment on above:Performed By: #### CBC, CMP wRFX A1C #### [place] [address] USASpecific gravity Test strip (U) [Rel density]Ordered By: Nishant Ceja on 17-59-9924Cfxnzxtw gravity (U) [Rel density]1.0141.001-1.030 [facility], Edwin ShawUrea nitrogen [Mass/volume] in Serum or Plasma Ordered By: Nishant Ceja on 18-58-3477Kbuo nitrogen [Mass/Vol]7 mg/dLNormal02-06 [facility] ShawComment on above:Performed By: #### CBC, CMP wRFX A1C #### [place] [id number] USAUrinalysison 32-05-3691Arbcswprq,UrineNegativeNormal NegativeThe [facility] Physician GroupComment on above:Order Comment: Name Collection Type:: Clean-Voided MidstreamPerformed By: #### CBC, CMP wRFX A1C #### [place] [address] USAGlucose Ql (U)NormalNormalNormMercy Healthe [facility] Hospital Physician GroupComment on above:Order Comment: Name Collection Type:: Clean-Voided MidstreamPerformed By: #### CBC, CMP wRFX A1C #### [place] [address] USANitrite,UrineNegativeNormalNegativeAdventhealth Heart Of Florida Physician GroupComment on above:Order Comment: Name Collection Type:: Clean-Voided MidstreamPerformed By: #### CBC, CMP wRFX A1C #### [place] [id number] USAOccult Blood,UrineNegativeNormalNegativeThe [facility] Physician GroupComment on above:Order Comment: Name Collection Type:: Clean- Voided MidstreamResult Comment: PERFORMED BY: [place] [address] PATHOLOGIST CIGAR HEAD STRINGER SOFIE MONTEIRO M.D.Performed By: #### CBC, CMP wRFX A1C #### [place] [address] USAProtein,UrineNegativeNormalNegativeThe [facility] Physician GroupComment on above:Order Comment: Name Collection Type:: Clean-Voided MidstreamPerformed By: #### CBC, CMP wRFX A1C #### [facility] [address] [place] [address] USASpecificy [place],Urine1.424Lgtgxu6.001-1.030The [facility] Physician GroupComment on above:Order Comment: Name Collection Type:: Clean- Voided MidstreamPerformed By: #### CBC, CMP wRFX A1C #### [facility] [address] [place] [address] USAUrobilinogen,UrineNormalNormalNormalThe [facility] Physician GroupComment on above:Order Comment: Name Collection Type:: Clean- Voided MidstreamPerformed By: #### CBC, CMP wRFX A1C #### [place] [address] USAUrobilinogen Test strip (U) [Mass/Vol]Ordered By: Nishant Ceja on 35-46-5957Urhdvgteqsbt (U) [Mass/Vol]Normal mg/dLNormAdams County Regional Medical CenterpH of Urine by Test stripOrdered By: Nishant Ceja on 62-79-2151fV (U)6.0 [pH]Normal5.0-9.0[facility], [facility] ShawComment on above:Order Comment: Name Collection Type:: Clean-Voided MidstreamPerformed By: #### CBC, CMP wRFX A1C #### [place] [address] GGJ79qd 43-65-755542Kdxqh to patient to see if he had completed his testing ordered by Dr. Vidal. Patient states he has not completed testing, Corrections Officer asked patient if he would like to do testing, patient agreed to have testing done. I advised patient that scheduling would be calling him to sched testing and they will transfer him down to us to sched his follow up with Dr. Vidal. Patient verbalized understanding and agreed with plan of care.NormalPeoples HospitalX-ray reportOrdered By: Nikos Rivera on 23-77-0180Kdaxf reportUNIVERSITY HOSPITALS [facility] [address] [place] [id number] XRay Report Signed Patient: Rehan Trejo MR#: [id number] : 1965 Acct:[id number] Age/Sex: 59 / M ADM Date: 5 Loc: [facility] Room: Type: [facility] CLI Attending Dr: Nishant Ceja [...] Rivera M.D. 12/22/2024 10:26 PM Dictation Location: [place] [address] Transcribed By: [facility] 12/22/242225 Dictated By: Nikos Rivera MD 12/22/242224 Signed By: 12/22/242225 [facility] Work Phone: XR shoulder RT min 2V*on 04-63-7240VQ shoulder RT min 2V*[facility] [address] [place] [address] XRay Report Signed Patient: Rehan Trejo MR#: [id number] : 1965 Acct:[id number] Age/Sex: 59 / M ADM Date: 12/22/24 Loc: [facility]: Nishant Ceja DO Copies to: [...] Rivera M.D. 12/22/2024 10:26 PM Dictation Location: [place] [address] Transcribed By: NORI 12/22/242225 Dictated By: Nikos Rivera MD 12/22/242224 Signed By: 12/22/242225[facility] GroupUS venous duplex LE RTon 64-75-0960YO venous duplex LE RTUNIVERSITY H[facility]ALS [facility] [place] [address] Ultrasound Report Signed Patient: Rehan Trejo MR#: [id number] : 1965 Acct:[id number] Age/Sex: 59 / M ADM Date: 12/03/24 Loc: Room: [address] [place] [address] Type: ADM IN Attending Dr: Paco Jimenez MD Ordering Provider: Gloria Arrington APRN Date of Service: 12/10/24 US/US venous duplex LE RT: swelling, postop Copies to: MD Gloria Silva, MANAGEMENT ASSISTANT RIGHT LOWER EXTREMITY VENOUS DUPLEX INDICATION: Painful [...] Donnelly M.D. 12/12/2024 11:17 AM Dictation Location: [place] [address] Tech: Ana Rosa Morsetyra Transcribed By: NORI 12/12/241116 Dictated By: Zaire Donnelly MD 12/12/241116 Signed By: 12/12/241116NormalThe [facility] Physician GroupAlanine aminotransferase [Enzymatic activity/volume] in Serum or PlasmaOrdered By: Paco Jimenez on 66-64-3685NIY [Catalytic activity/Vol]Alanine aminotransferase [Enzymatic activity/volume] in Serum or Plasma7[facility], [facility] ShawALT [Catalytic activity/Vol]37 U/LNormal7[facility], [facility] ShawComment on above:Performed By: #### CBC, CMP wRFX A1C #### [facility] [address] [place] [id number] USAAlbumin [Mass/volume] in Serum or Plasma by Bromocresol green (BCG) dye binding methoOrdered By: Paco Jimenez on 12-04-2024 Albumin BCG dye [Mass/Vol]Albumin [Mass/volume] in Serum or Plasma by Bromocresol green (BCG) dye binding methoLow3.5-5.7FMercy Health St. Elizabeth Youngstown HospitalAlbumin BCG dye [Mass/Vol]3.2 g/dLLow3.5-5.7FMercy Health St. Elizabeth Youngstown HospitalAlkaline phosphatase [Enzymatic activity/volume] in Serum or PlasmaOrdered By: Paco Jimenez on 78-19-6265ZZE [Catalytic activity/Vol]Alkaline phosphatase [Enzymatic activity/volume] in Serum or Vfoxep63-520JdiimvwlrSelect Medical Cleveland Clinic Rehabilitation Hospital, Edwin ShawALP [Catalytic activity/Vol]92 U/LYqbrnd46-093Lkxgxmnej92 Diaz StreetComment on above:Performed By: #### CBC, CMP wRFX A1C #### [address] [address] USAAspartate aminotransferase [Enzymatic activity/volume] in Serum or PlasmaOrdered By: Paco Jimenez on 97-13-1114NJQ [Catalytic activity/Vol]Aspartate aminotransferase [Enzymatic activity/volume] in Serum or Vrnpeb15-21CvuionmahSelect Medical Cleveland Clinic Rehabilitation Hospital, Edwin ShawAST [Catalytic activity/Vol]21 U/L Zowgar76-74CogiusxieSelect Medical Cleveland Clinic Rehabilitation Hospital, Edwin ShawComment on above:Performed By: #### CBC, CMP wRFX A1C #### [facility] [address] [place] [address] USABasophils Auto (Bld) [#/Vol]Ordered By: Paco Jimenez on 24-89-1573Vmznpcluq (Bld) [#/Vol]Automated basophil count0.0-0.2 [facility] Hospital, Edwin ShawBasophils [#/volume] in Blood by Automated countOrdered By: Paco Jimenez on 56-99-4718Qyqgoznvt (Bld) [#/Vol]0.0 10*3/uLNormal0.0-0.2FMercy Health St. Elizabeth Youngstown HospitalComment on above:Result Comment: PERFORMED BY: [place] [address] PATHOLOGIST CIGAR HEAD STRINGER CHACORTA DE DIOS M.D.Performed By: #### CBC, CMP wRFX A1C #### [place] [address] USABasophils/100 WBC Auto (Bld)Ordered By: Paco Jimenez on 35-20-5080Ujpqkeduy/100 WBC (Bld)Automated basophil %.[facility], Edwin ShawBasophils/100 leukocytes in Blood by Automated count Ordered By: Paco Jimenez on 40-94-7961Vzrkzlzaj/100 WBC (Bld)0.3 %Normal .[facility] Hospital, Edwin ShawComment on above:Performed By: #### CBC, CMP wRFX A1C #### [place] [address] USABilirubin.total [Mass/volume] in Serum or PlasmaOrdered By: Paco Jimenez on 80-54-4478Vesubncaj [Mass/Vol]Bilirubin.total [Mass/volume] in Serum or Plasma0.3-1.0[facility] Bilirubin [Mass/Vol]0.7 mg/dLNormal0.3-1.0[facility] Comment on above:Performed By: #### CBC, CMP wRFX A1C #### [place] [address] USACalcium [Mass/volume] in Serum or PlasmaOrdered By: Paco Jimenez on 79-80-6460Dstecaw [Mass/Vol]Calcium [Mass/volume] in Serum or PlasmaLow8.6-10.3FMercy Health St. Elizabeth Youngstown HospitalCalcium [Mass/Vol]7.8 mg/dLLow8.6-10.3FMercy Health St. Elizabeth Youngstown HospitalComment on above:Performed By: #### CBC, CMP wRFX A1C #### [facility] [address] [place] [address] USACarbon dioxide, total [Moles/volume] in Serum or Plasma Ordered By: Paco Jimenez on 94-20-6501KY5 [Moles/Vol]Carbon dioxide, total [Moles/volume] in Serum or Gtkitt39.0-31.0[facility] Hospital, Edwin ShawCO2 [Moles/Vol]21.8 mmol/RLwehtf25.0-31.0[facility] Comment on above:Performed By: #### CBC, CMP wRFX A1C #### [place] [address] USAChloride [Moles/volume] in Serum or PlasmaOrdered By: Paco Jimenez on 04-92-6957Ckarircu [Moles/Vol]Chloride [Moles/volume] in Serum or Myfahe91-128BvexetwqrSelect Medical Cleveland Clinic Rehabilitation Hospital, Edwin ShawChloride [Moles/Vol]100 mmol/SUgyqve15-892Nzxyocog[address] [place], [place] [address]Comment on above:Performed By: #### CBC, CMP wRFX A1C #### [facility] [address] [place] [address] USAComplete Blood Count Auto Diffon 06-79-5325Kgwm Corpuscular HGB Conc34.6 g/hEDndnnf64.5-35.6The [facility] Physician GroupComment on above:Performed By: #### CBC, CMP wRFX A1C #### [facility] [address] [place] [address] USANRBC%0.1 /100{WBC}Normal0-0.5The [facility] Physician Group Comment on above:Performed By: #### CBC, CMP wRFX A1C #### [place] [address] USAComprehensive Metabolic Panelon 84-17-4625Mjqkmcy [Mass/Vol]3.2 g/dLLow3.5-5.7The [facility] Physician GroupComment on above: Performed By: #### CBC, CMP wRFX A1C #### [facility] [address] [place] [address] USACreatinine Clr Calc Tlkzyhia831.15NormalAdventhealth Heart Of Florida Physician [facility] County HospitalComment on above:Performed By: #### CBC, CMP wRFX A1C #### [facility] [address] [place] [address] USAGFR/1.73 sq M.predicted MDRD (S/P/Bld) [Vol rate/Area] mL/min/{1.73_m2}NormalThe [facility] Physician GroupComment on above:Performed By: #### CBC, CMP wRFX A1C #### [facility] [address] [place] [address] USACreatinine [Mass/volume] in Serum or PlasmaOrdered By: Paco Jimenez on 54-35-8963Ggkhrjupoc [Mass/Vol]Creatinine [Mass/volume] in Serum or Plasma0.70-1.30[facility], Edwin ShawCreatinine [Mass/Vol]0.93 mg/dLNormal0.70-1.30[facility], [facility] ShawComment on above:Performed By: #### CBC, CMP wRFX A1C #### [facility] [address] [place] [address] USAEosinophils Auto (Bld) [#/Vol]Ordered By: Paco Jimenez on 11-30-2359Elvealyvvxn (Bld) [#/Vol]Automated eosinophil count 0.0-0.45[facility], Edwin ShawEosinophils [#/volume] in Blood by Automated countOrdered By: Paco Jimenez on 67-77-0107Qfalknejdoj (Bld) [#/Vol]0.0 10*3/uLNormal0.0-0.45[facility], [facility] ShawComment on above:Performed By: #### CBC, CMP wRFX A1C #### [facility] [address] [place] [address] USAEosinophils/100 WBC Auto (Bld)Ordered By: Paco Jimenez on 41-64-0023Jgbxyteklrg/100 WBC (Bld)Automated eosinophil %. [facility], Edwin ShawEosinophils/100 leukocytes in Blood by Automated countOrdered By: Paco Jimenez on 36-23-0083Ufpvodnjbgf/100 WBC (Bld)0.3 %Normal.[facility], Edwin ShawComment on above:Performed By: #### CBC, CMP wRFX A1C #### [facility] [address] [place] [address] USAErythrocyte distribution width Auto (RBC) [Ratio]Ordered By: Paco Jimenez on 54-84-4927Zcgusckglql distribution width (RBC) [Ratio]Erythrocyte distribution width [Ratio] by Automated count12.0-14.8 [facility] Hospital, Edwin ShawErythrocyte distribution width [Ratio] by Automated countOrdered By: Paco Jimenez on 24-69-0404Epxfwjzzcuj distribution width (RBC) [Ratio]13.7 %Llpfhh81.0-14.8[facility], [facility] ShawComment on above:Performed By: #### CBC, CMP wRFX A1C #### [facility] [address] [place] [address] USAErythrocytes [#/volume] in Blood by Automated countOrdered By: Paco Jimenez on 93-58-4157VJJ (Bld) [#/Vol]3.31 10*6/uLLow3.90-5.60 [facility], [facility] ShawComment on above:Performed By: #### CBC, CMP wRFX A1C #### [place] [id number] USAGlobulin Calc (S) [Mass/Vol]Ordered By: Paco Jimenez on 87-33-3361Hcukvule (S) [Mass/Vol]Serum globulin measurement by calculation (mass/volume)[facility], [facility] ShawGlucose [Mass/volume] in Serum or PlasmaOrdered By: Paco Jimenez on 55-71-5461Nsqwzpa [Mass/Vol]Glucose [Mass/volume] in Serum or Qyolhq63-300AdllspogkSelect [facility], Edwin ShawComment on above:ADA recommended reference rangeRandom Glucose Reference Range is dependent on time and content of last meal. Glucose of more than 200 mg/dL in a nonstressed, ambulatory subject supports the diagnosisof Diabetes Mellitus.Glucose [Mass/Vol]95 mg/eGBnkjce55-113GuzywxsgsSelect Medical [facility] Hospital, Edwin ShawComment on above:ADA recommended reference rangeRandom Glucose Reference [...] By: #### CBC, CMP wRFX A1C #### [facility] [address] [place] [address] USAHematocrit Auto (Bld) [Volume fraction]Ordered By: Paco Jimenez on 35-69-3813Mowebvnkaw (Bld) [Volume fraction]Hematocrit [Volume Fraction] of Blood by Automated yxcunSak59.8-50.0[facility], Edwin ShawHematocrit [Volume Fraction] of Blood by Automated countOrdered By: Paco Jimenez on 23-47-0407Kzbcmvrhww (Bld) [Volume fraction]32.8 % Low38.8-50.0[facility], Edwin ShawComment on above:Performed By: #### CBC, CMP wRFX A1C #### [address] [address] USAHemoglobin [Mass/volume] in BloodOrdered By: Paco Jimenez on 21-55-8327Gdacjjrcrs (Bld) [Mass/Vol]Hemoglobin [Mass/volume] in FnamqKhj31.0-17.0[facility], Edwin ShawHemoglobin (Bld) [Mass/Vol] 11.3 g/dLLow13.0-17.0[facility] ShawComment on above:Performed By: #### CBC, CMP wRFX A1C #### [address] [address] USALeukocytes [#/volume] corrected for nucleated erythrocytes in Blood by Automated counOrdered By: Paco Jimenez on 03-10-9057SVY corrected for nucl RBC Auto (Bld) [#/Vol]Leukocytes [#/volume] corrected for nucleated erythrocytes in Blood by Automated coun4.1-10.5FMercy Health St. Elizabeth Youngstown HospitalWBC corrected for nucl RBC Auto (Bld) [#/Vol]9.1 10*3/uL4.1-10.5 [facility] ShawLeukocytes [#/volume] in Blood by Automated countOrdered By: Paco Jimenez on 14-23-0160BWT (Bld) [#/Vol]9.1 10*3/uL Normal4.1-10.5FMercy Health St. Elizabeth Youngstown HospitalComment on above:Performed By: #### CBC, CMP wRFX A1C #### [facility] [address] [place] [address] USALymphocytes Auto (Bld) [#/Vol]Ordered By: Paco Jimenez on 40-22-2874Hsxhafoiwzq (Bld) [#/Vol]Lymphocytes [#/volume] in Blood by Automated count1.00-4.8[facility], Edwin ShawLymphocytes [#/volume] in Blood by Automated countOrdered By: Paco Jimenez on 44-81-1590Hdcbmmixswv (Bld) [#/Vol]1.9 10*3/uLNormal1.00-4.8[facility], Edwin ShawComment on above:Performed By: #### CBC, CMP wRFX A1C #### [facility] [address] [place] [id number] USALymphocytes/100 WBC Auto (Bld)Ordered By: Paco Jimenez on 78-93-4468Vjehanlfzns/100 WBC (Bld)Lymphocytes/100 leukocytes in Blood by Automated count.[facility], Edwin ShawLymphocytes/100 leukocytes in Blood by Automated countOrdered By: Paco Jimeenz on 64-92-7602Ppdjkvxpojy/100 WBC (Bld)20.4 %Normal.[facility], Edwin ShawComment on above:Performed By: #### CBC, CMP wRFX A1C #### [facility] [address] Auto (RBC) [Entitic mass]Ordered By: Paco Jimenez on 57-12-1697MJG (RBC) [Entitic mass]MCH [Entitic mass] by Automated count27.5-35.2FSelect Medical Specialty Hospital [facility] [Entitic mass] by Automated countOrdered By: Paco Jimenez on 29-51-0961XAT (RBC) [Entitic mass]34.3 veOzokyb71.5-35.2FMercy Health St. Elizabeth Youngstown HospitalComment on above:Performed By: #### CBC, CMP wRFX A1C #### [facility] [address] Auto (RBC) [Mass/Vol]Ordered By: Paco Jimenez on 79-77-2508QUNL (RBC) [Mass/Vol]MCHC [Mass/volume] by Automated count 32.5-35.6FAvita Health [facility] (RBC) [Mass/Vol]34.6 g/dL 32.5-35.6FDoctors Hospital Auto (RBC) [Entitic vol]Ordered By: Paco Jimenez on 46-48-3393VYL (RBC) [Entitic vol]MCV [Entitic volume] by Automated count83.5-101Aden[facility] Regional Medical CenterV [Entitic volume] by Automated countOrdered By: Paco Jimenez on 53-18-0612QUX (RBC) [Entitic vol]99.2 rSBhjslo45.5-101[facility], Edwin ShawComment on above:Performed By: #### CBC, CMP wRFX A1C #### [facility] [address] [place] [address] USAMonocytes Auto (Bld) [#/Vol]Ordered By: Paco Jimenez on 78-23-1823Tkgizsmvv (Bld) [#/Vol]Automated blood monocyte count High0.0-0.8[facility], [facility] ShawMonocytes [#/volume] in Blood by Automated countOrdered By: Paco Jimenez on 22-99-8490Uwqmaaxyd (Bld) [#/Vol]1.1 10*3/uLHigh0.0-0.8[facility] ShawComment on above: Performed By: #### CBC, CMP wRFX A1C #### [place] [id number] USAMonocytes/100 WBC Auto (Bld)Ordered By: Paco Jimenez on 05-19-0435Mmbuqvwms/100 WBC (Bld)Automated monocyte %.[facility] ShawMonocytes/100 leukocytes in Blood by Automated count Ordered By: Paco Jimenez on 65-89-5542Skcxrabzw/100 WBC (Bld)11.8 % Normal.[facility], [facility] ShawComment on above:Performed By: #### CBC, CMP wRFX A1C #### [place] [address] USANeutrophils Auto (Bld) [#/Vol]Ordered By: Paco Jimenez on 94-78-3474Ffzbbldeity (Bld) [#/Vol]Neutrophils [#/volume] in Blood by Automated count1.8-7.7FMercy Health St. Elizabeth Youngstown HospitalNeutrophils [#/volume] in Blood by Automated countOrdered By: Paco Jimenez on 35-56-4081Qzlazbxtfwf (Bld) [#/Vol]6.1 10*3/uLNormal1.8-7.7FMercy Health St. Elizabeth Youngstown HospitalComment on above:Performed By: #### CBC, CMP wRFX A1C #### [place] [id number] USANeutrophils/100 WBC Auto (Bld)Ordered By: Paco Jimenez on 24-15-1926Dmyxquhpygm/100 WBC (Bld)Automated neutrophil %. [facility] Edwin ShawNeutrophils/100 leukocytes in Blood by Automated countOrdered By: Paco Jimenez on 54-42-4876Gnihirlgbat/100 WBC (Bld)67.2 %Normal.[facility], Edwin ShawComment on above:Performed By: #### CBC, CMP wRFX A1C #### [place] [address] USANo Panel InformationOrdered By: Paco Jimenez on 88-79-5963Llfzxqzwy GFR (CKD-EPI)> 60.0 mL/MinSelect Medical [facility] Shaw Pharmacy Creatinine Clearance (Dace585.15[facility] Nucleated erythrocytes [Presence] in Blood by Automated countOrdered By: Paco Jimenez on 20-59-7085Ktbznrjba RBC Auto Ql (Bld)Nucleated erythrocytes [Presence] in Blood by Automated count0-0.5FMercy Health St. Elizabeth Youngstown HospitalNucleated RBC Auto Ql (Bld)0.1 /100{WBC}0-0.5FMercy Health St. Elizabeth Young[facility] HospitalPlatelet mean volume Auto (Bld) [Entitic vol]Ordered By: Paco Jimenez on 28-15-3856Kjnaqhkb mean volume (Bld) [Entitic vol]Platelet mean volume [Entitic volume] in Blood by Automated count6.6-10.1FMercy Health St. Elizabeth Youngstown HospitalPlatelet mean volume [Entitic volume] in Blood by Automated count Ordered By: Paco Jimenez on 66-17-7113Zkngrzwq mean volume (Bld) [Entitic vol]7.7 fLNormal6.6-10.1FMercy Health St. Elizabeth Youngstown HospitalComment on above:Performed By: #### CBC, CMP wRFX A1C #### [facility] [address] [place] [address] USAPlatelets Auto (Bld) [#/Vol]Ordered By: Paco Jimenez on 68-76-8025Aziuudpje (Bld) [#/Vol]Platelets [#/volume] in Blood by Automated -440Hkvks[address] [place], [place] [address]Platelets [#/volume] in Blood by Automated countOrdered By: Paco Jimenez on 45-77-9254Cryuqjhzp (Bld) [#/Vol]179 10*3/tCCaniya029-937Qvzzkrod[address] [place], [place] [address]Comment on above:Performed By: #### CBC, CMP wRFX A1C #### [facility] [address] [place] [address] USAPotassium [Moles/volume] in Serum or PlasmaOrdered By: Paco Jimenez on 46-86-6767Zyufgeofn [Moles/Vol]Potassium [Moles/volume] in Serum or Plasma3.5-5.1FMercy Health St. Elizabeth Youngstown HospitalPotassium [Moles/Vol] 3.8 mmol/LNormal3.5-5.1FMercy Health St. Elizabeth Youngstown HospitalComment on above: Performed By: #### CBC, CMP wRFX A1C #### [facility] [address] [place] [address] USAPrealbumin [Mass/volume] in Serum or PlasmaOrdered By: Paco Jimenez on 48-92-7465Nxbhyafpqa [Mass/Vol]Prealbumin [Mass/volume] in Serum or YmsliyDjy93.0-34.0[facility], Edwin ShawPrealbumin [Mass/Vol]13.4 mg/dLLow17.0-34.0[facility] ShawComment on above:Result Comment: PERFORMED BY: [place] [id number] PATHOLOGIST [employer] CHACORTA DE DIOS M.D.Performed By: #### CBC, CMP wRFX A1C #### [facility] [address] [place] [address] USAProtein [Mass/volume] in Serum or PlasmaOrdered By: Paco Jimenez on 97-29-8321Dfvakzl [Mass/Vol]Protein [Mass/volume] in Serum or PlasmaLow6.4-8.9[facility], [facility] ShawProtein [Mass/Vol]5.1 g/dLLow6.4-8.9[facility] ShawComment on above:Performed By: #### CBC, CMP wRFX A1C #### [address] [address] USARBC Auto (Bld) [#/Vol]Ordered By: Paco Jimenez on 52-92-8126TCX (Bld) [#/Vol]Erythrocytes [#/volume] in Blood by Automated count Low3.90-5.60Western Reserve Hospitalerum globulin measurement by calculation (mass/volume)Ordered By: Paco Jimenez on 45-70-1745Fyefwumx (S) [Mass/Vol]1.9 g/dLNormalSelect Medical [facility] Hospital, Edwin ShawComment on above: Performed By: #### CBC, CMP wRFX A1C #### [facility] [address] [place] [address] USASerum or plasma albumin/globulin mass ratioOrdered By: Paco Jimenez on 05-67-7191Qommmyl/Globulin [Mass ratio]Serum or plasma albumin/globulin mass ratioSelect Medical [facility] Clinic Rehabilitation Hospital, Edwin ShawAlbumin/Globulin [Mass ratio]1.7 {ratio}NormalSelect Medical [facility] Hospital, Edwin ShawComment on above: Performed By: #### CBC, CMP wRFX A1C #### [facility] [address] [place] [address] USASerum or plasma anion gap determinationOrdered By: Paco Jimenez on 81-99-8888Txtxa gap [Moles/Vol]Serum or plasma anion gap determination6.0-15.0[facility], [facility] ShawAnion gap [Moles/Vol]13.0 mmol/LNormal6.0-15.0[facility] ShawComment on above:Performed By: #### CBC, CMP wRFX A1C #### [facility] [address] [place] [address] USASodium [Moles/volume] in Serum or PlasmaOrdered By: Paco Jimenez on 30-28-2850Ttflyb [Moles/Vol]Sodium [Moles/volume] in Serum or NeitxeRoy055-264CryszuaytWestern Reserve Hospitalodium [Moles/Vol]131 mmol/SAyg654-386LucqitcjpSelect Medical [facility] Hospital, Edwin ShawComment on above:Performed By: #### CBC, CMP wRFX A1C #### [facility] [address] [place] [address] USAUrea nitrogen [Mass/volume] in Serum or PlasmaOrdered By: Paco Jimenez on 42-32-0841Inpl nitrogen [Mass/Vol]Urea nitrogen [Mass/volume] in Serum or Plasma02-06[facility], [facility] ShawUrea nitrogen [Mass/Vol]13 mg/dLNormal02-06[facility] ShawComment on above:Performed By: #### CBC, CMP wRFX A1C #### [place] [id number] USAWBC Auto (Bld) [#/Vol]Ordered By: Paco Jimenez on 77-67-5104AQM (Bld) [#/Vol]Leukocytes [#/volume] in Blood by Automated count 4.1-10.5FMercy Health St. Elizabeth Youngstown HospitalBasic Metabolic Panelon 12-03-2024 Creatinine Clr Calc Edctuvdm402.38NormBaptist Health Doctors Hospital Physician GroupComment on above:Result Comment: PERFORMED BY: [place] [address] PATHOLOGIST [employer]INGER CHACORTA DE DIOS M.D.Performed By: #### CBC, CMP wRFX A1C #### [place] [address] USAGFR/1.73 sq M.predicted MDRD (S/P/Bld) [Vol rate/Area] mL/min/{1.73_m2}NormalThe [facility] Physician [facility] County HospitalComment on above:Performed By: #### CBC, CMP wRFX A1C #### [place] [address] USABasophils Auto (Bld) [#/Vol]Ordered By: Nishant Ceja on 37-19-3119Qxieeqflm (Bld) [#/Vol]Automated basophil count0.0-0.2FMercy Health St. Elizabeth Youngstown HospitalBasophils [#/volume] in Blood by Automated countOrdered By: Nishant Ceja on 57-17-3698Kusqytdjz (Bld) [#/Vol]0.1 10*3/uLNormal0.0-0.2 [facility], [facility] ShawComment on above:Result Comment: PERFORMED BY: [place] [address] PATHOLOGIST [employer] HEAD [employer]INGER CHACORTA DE DIOS M.D.Performed By: #### CBC, CMP wRFX A1C #### [place] [id number] USABasophils/100 WBC Auto (Bld)Ordered By: Nishant Ceja on 81-58-4243Udqsircnm/100 WBC (Bld)Automated basophil %.[facility], Edwin ShawBasophils/100 leukocytes in Blood by Automated countOrdered By: Nishnat Ceja on 96-60-8073Yypchwahp/100 WBC (Bld)0.7 %Normal.[facility], [facility] ShawComment on above:Performed By: #### CBC, CMP wRFX A1C #### [facility] [address] [place] [address] USACalcium [Mass/volume] in Serum or PlasmaOrdered By: Nishant Ceja on 46-64-9622Rjsldxl [Mass/Vol]Calcium [Mass/volume] in Serum or Plasma Low8.6-10.3FMercy Health St. Elizabeth Youngstown HospitalCalcium [Mass/Vol]8.4 mg/dLLow 8.6-10.3FMercy Health St. Elizabeth Youngstown HospitalComment on above:Performed By: #### CBC, CMP wRFX A1C #### [facility] [address] [place] [address] USACarbon dioxide, total [Moles/volume] in Serum or Plasma Ordered By: Nishant Ceja on 55-19-3094GI1 [Moles/Vol]Carbon dioxide, total [Moles/volume] in Serum or QebhktLwp20.0-31.0[facility] CO2 [Moles/Vol]20.5 mmol/LLow21.0-31.0[facility], [facility] ShawComment on above:Performed By: #### CBC, CMP wRFX A1C #### [facility] [address] [place] [address] USAChloride [Moles/volume] in Serum or PlasmaOrdered By: Nishant Ceja on 04-36-0995Aypeaquy [Moles/Vol]Chloride [Moles/volume] in Serum or Xypgbn37-211LessawknvSelect Medical Cleveland Clinic Rehabilitation Hospital, Edwin ShawChloride [Moles/Vol]99 mmol/L Mvzviw13-320CplikxpmlSelect Medical Cleveland Clinic Rehabilitation Hospital, Edwin ShawComment on above:Performed By: #### CBC, CMP wRFX A1C #### [facility] [address] [place] [address] USAComplete Blood Count Auto Diffon 19-21-1701Klja Corpuscular HGB Conc34.0 g/nVOtcxye85.5-35.6The [facility] Physician GroupComment on above:Performed By: #### CBC, CMP wRFX A1C #### [facility] [address] [place] [address] USANRBC%0.1 /100{WBC}Normal0-0.5The [facility] Physician Group Comment on above:Performed By: #### CBC, CMP wRFX A1C #### [facility] [address] [place] [address] USACreatinine [Mass/volume] in Serum or PlasmaOrdered By: Nishant Ceja on 50-89-2808Udxxkyxjbj [Mass/Vol]Creatinine [Mass/volume] in Serum or Plasma0.70-1.30[facility], [facility] ShawCreatinine [Mass/Vol] 0.82 mg/dLNormal0.70-1.30[facility], [facility] ShawComment on above: Performed By: #### CBC, CMP wRFX A1C #### [facility] [address] [place] [address] USAEosinophils Auto (Bld) [#/Vol]Ordered By: Nishant Ceja on 90-91-0206Wkgcpsowhwk (Bld) [#/Vol]Automated eosinophil count0.0-0.45[facility], [facility] ShawEosinophils [#/volume] in Blood by Automated countOrdered By: Nishant Ceja on 49-26-1549Pnusltqzbyc (Bld) [#/Vol]0.0 10*3/uLNormal 0.0-0.45[facility], [facility] ShawComment on above:Performed By: #### CBC, CMP wRFX A1C #### [facility] [address] [place] [id number] USAEosinophils/100 WBC Auto (Bld)Ordered By: Nishant Ceja on 87-36-1023Qruqcpmjnta/100 WBC (Bld)Automated eosinophil %.[facility], Edwin ShawEosinophils/100 leukocytes in Blood by Automated countOrdered By: Nishant Ceja on 94-05-0633Tyfstyfhvwo/100 WBC (Bld)0.0 %Normal.[facility], Edwin ShawComment on above:Performed By: #### CBC, CMP wRFX A1C #### [facility] [address] [place] [id number] USAErythrocyte distribution width Auto (RBC) [Ratio]Ordered By: Nishant Ceja on 18-98-0168Fhvdjehlgfm distribution width (RBC) [Ratio] Erythrocyte distribution width [Ratio] by Automated count12.0-14.8[facility], Edwin ShawErythrocyte distribution width [Ratio] by Automated count Ordered By: Nishant Ceja on 90-80-2222Ocneugbmitj distribution width (RBC) [Ratio]14.1 %Upwoop75.0-14.[address] [place], [place] [address]Comment on above: Performed By: #### CBC, CMP wRFX A1C #### [facility] [address] [place] [id number] USAErythrocytes [#/volume] in Blood by Automated countOrdered By: Nishant Ceja on 07-92-1337LRW (Bld) [#/Vol]3.72 10*6/uLLow3.90-5.60 [facility], [facility] ShawComment on above:Performed By: #### CBC, CMP wRFX A1C #### [facility] [address] [place] [id number] USAGlucose [Mass/volume] in Serum or PlasmaOrdered By: Nishant Ceja on 50-28-6521Dloifok [Mass/Vol]Glucose [Mass/volume] in Serum or Plasma [address] StreetComment on above:ADA recommended reference rangeRandom Glucose Reference Range is dependent on time and content of last meal. Glucose of more than 200 mg/dL in a nonstressed, ambulatory subject supports the diagnosisof Diabetes Mellitus.Glucose [Mass/Vol]102 mg/dL [address] StreetComment on above:ADA recommended reference rangeRandom Glucose [...] By: #### CBC, CMP wRFX A1C #### [facility] [address] [place] [address] USAHematocrit Auto (Bld) [Volume fraction]Ordered By: Nishant Ceja on 17-34-3359Sxrcxlyzgt (Bld) [Volume fraction]Hematocrit [Volume Fraction] of Blood by Automated rjpdaRbq49.8-50.0[facility], Edwin ShawHematocrit [Volume Fraction] of Blood by Automated countOrdered By: Nishant Ceja on 80-89-7197Ztxolwguxf (Bld) [Volume fraction]36.7 %Low38.8-50.0 [facility], [facility] ShawComment on above:Performed By: #### CBC, CMP wRFX A1C #### [facility] [address] [place], [place] [address] USAHemoglobin [Mass/volume] in BloodOrdered By: Nishant Ceja on 94-99-3054Jaizckadia (Bld) [Mass/Vol]Hemoglobin [Mass/volume] in BloodLow 13.0-17.0[facility], Edwin ShawHemoglobin (Bld) [Mass/Vol]12.5 g/dL Low13.0-17.0[facility], [facility] ShawComment on above:Performed By: #### CBC, CMP wRFX A1C #### [place] [id number] USALeukocytes [#/volume] corrected for nucleated erythrocytes in Blood by Automated counOrdered By: Nishant Ceja on 61-36-4996HII corrected for nucl RBC Auto (Bld) [#/Vol]Leukocytes [#/volume] corrected for nucleated erythrocytes in Blood by Automated counHigh4.1-10.5FMercy Health St. Elizabeth Youngstown HospitalWBC corrected for nucl RBC Auto (Bld) [#/Vol]12.4 10*3/uLHigh4.1-10.5 [facility] ShawLeukocytes [#/volume] in Blood by Automated countOrdered By: Nishant Ceja on 20-12-4471WKN (Bld) [#/Vol]12.4 10*3/uLHigh 4.1-10.5FMercy Health St. Elizabeth Youngstown HospitalComment on above:Performed By: #### CBC, CMP wRFX A1C #### [facility] [address] [place] [address] USALymphocytes Auto (Bld) [#/Vol]Ordered By: Nishant Ceja on 58-22-4204Ouejrlxtnkq (Bld) [#/Vol]Lymphocytes [#/volume] in Blood by Automated count1.00-4.8[facility], Edwin ShawLymphocytes [#/volume] in Blood by Automated countOrdered By: Nishant Ceja on 12-75-0745Tmoybsbttuh (Bld) [#/Vol]1.8 10*3/uLNormal1.00-4.8[facility] ShawComment on above:Performed By: #### CBC, CMP wRFX A1C #### [facility] [address] [place] [address] USALymphocytes/100 WBC Auto (Bld)Ordered By: Nishant Ceja on 99-34-3400Hqtwyeyjzld/100 WBC (Bld)Lymphocytes/100 leukocytes in Blood by Automated count.[facility], Edwin ShawLymphocytes/100 leukocytes in Blood by Automated countOrdered By: Nishant Ceja on 16-89-7982Qafpxsoxlsf/100 WBC (Bld)14.2 %Normal.[facility], [facility] ShawComment on above: Performed By: #### CBC, CMP wRFX A1C #### [facility] [address] Auto (RBC) [Entitic mass]Ordered By: Nishant Ceja on 99-53-6080OEK (RBC) [Entitic mass]MCH [Entitic mass] by Automated count27.5-35.2 [facility] [Entitic mass] by Automated countOrdered By: Nishant Ceja on 45-30-1969KAC (RBC) [Entitic mass]33.5 hwDcwltt19.5-35.2 [facility] ShawComment on above:Performed By: #### CBC, CMP wRFX A1C #### [facility] [address] [place] [address] [facility] Auto (RBC) [Mass/Vol]Ordered By: Nishant Ceja on 46-10-4796ENMY (RBC) [Mass/Vol]MCHC [Mass/volume] by Automated count32.5-35.6 [facility], Edwin ShawMCHC (RBC) [Mass/Vol]34.0 g/dL32.5-35.6 [facility] ShawMCV Auto (RBC) [Entitic vol]Ordered By: Nishant Ceja on 01-63-2087DSH (RBC) [Entitic vol]MCV [Entitic volume] by Automated count83.5-101[facility] ShawMCV [Entitic volume] by Automated countOrdered By: Nishant Ceja on 98-45-3686VXP (RBC) [Entitic vol]98.5 fLNormal 83.5-101[facility], [facility] ShawComment on above:Performed By: #### CBC, CMP wRFX A1C #### [facility] [address] [place] [address] USAMonocytes Auto (Bld) [#/Vol]Ordered By: Nishant Ceja on 28-25-6125Xztzrqyym (Bld) [#/Vol]Automated blood monocyte countHigh0.0-0.8 [facility] ShawMonocytes [#/volume] in Blood by Automated countOrdered By: Nishant Ceja on 80-72-6937Qkpyblfvg (Bld) [#/Vol]1.2 10*3/uL High0.0-0.8[facility], [facility] ShawComment on above:Performed By: #### CBC, CMP wRFX A1C #### [facility] [address] [place] [id number] USAMonocytes/100 WBC Auto (Bld)Ordered By: Nishant Ceja on 28-58-3028Jftixopgp/100 WBC (Bld)Automated monocyte %.[facility], [facility] ShawMonocytes/100 leukocytes in Blood by Automated countOrdered By: Nishant Ceja on 21-18-4679Caklnpari/100 WBC (Bld)9.5 %Normal.[facility], [facility] ShawComment on above:Performed By: #### CBC, CMP wRFX A1C #### [facility] [address] [place] [address] USANeutrophils Auto (Bld) [#/Vol]Ordered By: Nishant Ceja on 32-01-1915Vaqvvysddfg (Bld) [#/Vol]Neutrophils [#/volume] in Blood by Automated countHigh1.8-7.7FMercy Health St. Elizabeth Youngstown HospitalNeutrophils [#/volume] in Blood by Automated countOrdered By: Nishant Ceja on 43-92-7829Kakieaiuygn (Bld) [#/Vol]9.4 10*3/uLHigh1.8-7.7FMercy Health St. Elizabeth Youngstown HospitalComment on above: Performed By: #### CBC, CMP wRFX A1C #### [facility] [address] [place] [address] USANeutrophils/100 WBC Auto (Bld)Ordered By: Nishant Ceja on 97-70-0041Xusjbluatue/100 WBC (Bld)Automated neutrophil %.[facility], [facility] ShawNeutrophils/100 leukocytes in Blood by Automated countOrdered By: Nishant Ceja on 19-55-2113Jfiorqzbtht/100 WBC (Bld)75.6 %Normal.[facility], [facility] ShawComment on above:Performed By: #### CBC, CMP wRFX A1C #### [facility] [address] [place] [address] USANo Panel InformationOrdered By: Nishant Ceja on 73-84-1246Esjfgvoev GFR (CKD-EPI)> 60.0 mL/MinSelect [facility] Creatinine Clearance (Pjsl538.38[facility] Nucleated erythrocytes [Presence] in Blood by Automated countOrdered By: Nishant Ceja on 44-44-6524Qrmilbynu RBC Auto Ql (Bld)Nucleated erythrocytes [Presence] in Blood by Automated count0-0.5FMercy Health St. Elizabeth Youngstown HospitalNucleated RBC Auto Ql (Bld)0.1 /100{WBC}0-0.5FMercy Health St. Elizabeth Youngstown HospitalPlatelet mean volume Auto (Bld) [Entitic vol]Ordered By: Nishant Ceja on 14-96-5766Fmsikfar mean volume (Bld) [Entitic vol]Platelet mean volume [Entitic volume] in Blood by Automated count6.6-10.1FMercy Health St. Elizabeth Youngstown HospitalPlatelet mean volume [Entitic volume] in Blood by Automated countOrdered By: Nishant Ceja on 65-28-6255Cloznrlq mean volume (Bld) [Entitic vol]8.6 fLNormal6.6-10.1FMercy Health St. Elizabeth Youngstown HospitalComment on above:Performed By: #### CBC, CMP wRFX A1C #### [facility] [address] [id number] USAPlatelets Auto (Bld) [#/Vol]Ordered By: Nishant Ceja on 69-31-9740Jurpxbzuv (Bld) [#/Vol]Platelets [#/volume] in Blood by Automated eqsnd092-689VmlmlterwSelect Medical Cleveland Clinic Rehabilitation Hospital, Edwin ShawPlatelets [#/volume] in Blood by Automated countOrdered By: Nishant Ceja on 65-68-7487Zzmhrtqrn (Bld) [#/Vol]209 10*3/eTFtfwtq341-119CljpmeqpwSelect Medical [facility] Clinic Rehabilitation Hospital, Edwin ShawComment on above:Performed By: #### CBC, CMP wRFX A1C #### [facility] [address] [place] [address] USAPotassium [Moles/volume] in Serum or PlasmaOrdered By: Nishant Ceja on 65-14-5314Rltvnicxb [Moles/Vol]Potassium [Moles/volume] in Serum or Plasma3.5-5.1FMercy Health St. Elizabeth Youngstown HospitalPotassium [Moles/Vol]4.1 mmol/LNormal3.5-5.1FMercy Health St. Elizabeth Youngstown HospitalComment on above:Performed By: #### CBC, CMP wRFX A1C #### [facility] [address] [id number] USARBC Auto (Bld) [#/Vol]Ordered By: Nishant Ceja on 10-54-8803PSX (Bld) [#/Vol]Erythrocytes [#/volume] in Blood by Automated count Low3.90-5.60Western Reserve Hospitalerum or plasma anion gap determinationOrdered By: Nishant Ceja on 91-77-3867Ppijl gap [Moles/Vol]Serum or plasma anion gap determination6.0-15.0[facility] ShawAnion gap [Moles/Vol]13.6 mmol/LNormal6.0-15.0[facility], [facility] ShawComment on above:Performed By: #### CBC, CMP wRFX A1C #### [facility] [address] [place] [address] USASodium [Moles/volume] in Serum or PlasmaOrdered By: Nishant Ceja on 50-34-5230Rnmnip [Moles/Vol]Sodium [Moles/volume] in Serum or Plasma Xib076-790YnrahcdhkWestern Reserve Hospitalodium [Moles/Vol]129 mmol/LLow 136-145[facility], [facility] ShawComment on above:Performed By: #### CBC, CMP wRFX A1C #### [facility] [address] [place] [address] USAUrea nitrogen [Mass/volume] in Serum or PlasmaOrdered By: Nishant Ceja on 91-64-8780Ydti nitrogen [Mass/Vol]Urea nitrogen [Mass/volume] in Serum or Plasma02-06[facility] ShawUrea nitrogen [Mass/Vol] 12 mg/dLNormal-[facility], [facility] ShawComment on above:Performed By: #### CBC, CMP wRFX A1C #### [facility] [address] [place] [address] USAWBC Auto (Bld) [#/Vol]Ordered By: Nishant Ceja on 75-60-3488LVD (Bld) [#/Vol]Leukocytes [#/volume] in Blood by Automated countHigh 4.1-10.5FMercy Health St. Elizabeth Youngstown HospitalABO/Rh Retypeon 26-77-9712PDC/RH Recheck ResultPositiveNormalThe [facility] Physician [place] [facility] HospitalComment on above:Result Comment: PERFORMED BY: [place] [id number] PATHOLOGIST CIGAR HEAD STRINGER CHACORTA DE DIOS M.D.Basic Metabolic Panelon 01-55-5810Tceer gap [Moles/Vol]12.5 mmol/LNormal6.0-15.0The [facility] Physician GroupComment on above:Performed By: #### BMP, PT, MG, PTT, CBC #### [facility] [address] [place] [address] USACalcium [Mass/Vol]8.6 mg/dLNormal8.6-10.3The [facility] Physician GroupComment on above:Performed By: #### BMP, PT, MG, PTT, CBC #### [place] [address] USAChloride [Moles/Vol]99 mmol/RBgtoip55-404Cyq [facility] Physician GroupComment on above:Performed By: #### BMP, PT, MG, PTT, CBC #### [place] [address] USACO2 [Moles/Vol]21.5 mmol/OKzzjwl00.0-31.0The [facility] Physician GroupComment on above:Performed By: #### BMP, PT, MG, PTT, CBC #### [place] [address] USACreatinine [Mass/Vol]0.78 mg/dLNormal0.70-1.30The [facility] Physician GroupComment on above:Performed By: #### BMP, PT, MG, PTT, CBC #### [place] [address] USACreatinine Clr Calc Duwzntnz885.55NormalThe [facility] Physician GroupComment on above:Performed By: #### BMP, PT, MG, PTT, CBC #### [place] [address] USAGFR/1.73 sq M.predicted MDRD (S/P/Bld) [Vol rate/Area] mL/min/{1.73_m2}NormalThe [facility] Physician GroupComment on above:Performed By: #### BMP, PT, MG, PTT, CBC #### [place] [address] USAGlucose [Mass/Vol]89 mg/gHSskpov09-036Zuk [facility] Physician GroupComment on above:Result Comment: Random Glucose Reference Range is dependent on time and content of last meal. Glucose of more than 200 mg/dL in a nonstressed, ambulatory subject supports the diagnosis of Diabetes Mellitus. ADA recommended reference rangePerformed By: #### BMP, PT, MG, PTT, CBC #### [place] [address] USAPotassium [Moles/Vol]4.0 mmol/LNormal3.5-5.1The [facility] Physician GroupComment on above:Performed By: #### BMP, PT, MG, PTT, CBC #### [place] [address] USASodium [Moles/Vol]129 mmol/MWks180-822Iak [facility] Physician GroupComment on above:Performed By: #### BMP, PT, MG, PTT, CBC #### [place] [address] USAUrea nitrogen [Mass/Vol]14 mg/dLNormal7-25The [facility] Physician GroupComment on above:Performed By: #### BMP, PT, MG, PTT, CBC #### [place] [address] USAComplete Blood Count Auto Diffon 54-12-2144Pceydfjzt (Bld) [#/Vol]0.1 10*3/uLNormal0.0-0.2The [facility] Physician GroupComment on above: Result Comment: PERFORMED BY: [place] [address] PATHOLOGIST CIGAR HEAD STRINGER CHACORTA DE DIOS M.D.Performed By: #### BMP, PT, MG, PTT, CBC #### [place] [address] USABasophils/100 WBC (Bld)0.6 %Normal.The [facility] Physician GroupComment on above:Performed By: #### BMP, PT, MG, PTT, CBC #### [place] [address] USAEosinophils (Bld) [#/Vol]0.0 10*3/uLNormal0.0-0.45The [facility] Physician GroupComment on above:Performed By: #### BMP, PT, MG, PTT, CBC #### [place] [address] USAEosinophils/100 WBC (Bld)0.5 %Normal.The [facility] Physician GroupComment on above:Performed By: #### BMP, PT, MG, PTT, CBC #### [place] [address] USAErythrocyte distribution width (RBC) [Ratio]13.8 %Normal 12.0-14.8The [facility] Physician GroupComment on above:Performed By: #### BMP, PT, MG, PTT, CBC #### [place] [address] USAHematocrit (Bld) [Volume fraction]39.2 %Knpiew93.8-50.0The [facility] Physician GroupComment on above:Performed By: #### BMP, PT, MG, PTT, CBC #### [place] [address] USAHemoglobin (Bld) [Mass/Vol]13.6 g/wMFteklo10.0-17.0The [facility] Physician GroupComment on above:Performed By: #### BMP, PT, MG, PTT, CBC #### [place] [address] USALymphocytes (Bld) [#/Vol]2.2 10*3/uLNormal1.00-4.8The [facility] Physician GroupComment on above:Performed By: #### BMP, PT, MG, PTT, CBC #### [place] [address] USALymphocytes/100 WBC (Bld)24.7 %Normal.The [facility] Physician GroupComment on above:Performed By: #### BMP, PT, MG, PTT, CBC #### [place] [address] USAMCH (RBC) [Entitic mass]34.4 mqFoqenv48.5-35.2The [facility] Physician GroupComment on above:Performed By: #### BMP, PT, MG, PTT, CBC #### [place] [address] USAMCV (RBC) [Entitic vol]99.1 xSRjcxfs32.5-101The [facility] Physician GroupComment on above:Performed By: #### BMP, PT, MG, PTT, CBC #### [place] [address] USAMean Corpuscular HGB Conc34.7 g/pXMqenxi11.5-35.6The [facility] Physician GroupComment on above:Performed By: #### BMP, PT, MG, PTT, CBC #### [place] [address] USAMonocytes (Bld) [#/Vol]0.8 10*3/uLNormal0.0-0.8The [facility] Physician GroupComment on above:Performed By: #### BMP, PT, MG, PTT, CBC #### [place] [address] USAMonocytes/100 WBC (Bld)9.0 %Normal.The [facility] Physician GroupComment on above:Performed By: #### BMP, PT, MG, PTT, CBC #### [place] [address] USANeutrophils (Bld) [#/Vol]5.9 10*3/uLNormal1.8-7.7The [facility] Physician GroupComment on above:Performed By: #### BMP, PT, MG, PTT, CBC #### [place] [address] USANeutrophils/100 WBC (Bld)65.2 %Normal.The [facility] Physician GroupComment on above:Performed By: #### BMP, PT, MG, PTT, CBC #### [place] [address] USANRBC%0.0 /100{WBC}Normal0-0.5The [facility] Physician Group Comment on above:Performed By: #### BMP, PT, MG, PTT, CBC #### [facility] [address] [place] [address] USAPlatelet mean volume (Bld) [Entitic vol]7.8 fLNormal 6.6-10.1The [facility] Physician GroupComment on above:Performed By: #### BMP, PT, MG, PTT, CBC #### [facility] [address] [place] [address] USAPlatelets (Bld) [#/Vol]196 10*3/uPVehmbc175-223Xcn [facility] Physician GroupComment on above:Performed By: #### BMP, PT, MG, PTT, CBC #### [place] [address] USARBC (Bld) [#/Vol]3.96 10*6/uLNormal3.90-5.60The [facility] Physician GroupComment on above:Performed By: #### BMP, PT, MG, PTT, CBC #### [place] [address] USAWBC (Bld) [#/Vol]9.0 10*3/uLNormal4.1-10.5The [facility] Physician GroupComment on above:Performed By: #### BMP, PT, MG, PTT, CBC #### [place] [address] USAECG 12 lead ECGon 35-35-2081KMG 12 lead ECGUNIVERSITY [facility] Main [place] [address] [place] [address] Electrocardiograph Report Signed Patient: Rehan Trejo MR#: [id number] : 1965 Acct:[id number] Age/Sex: 59 / M ADM Date: 12/01/24 Loc: Room: [address] [place] [address] Type: ADM IN Attending Dr: Luis Alberto [...] Signed By Deep Amado MD 0 12/02/24 0957[facility] Physician GroupINR in Platelet poor plasma by Coagulation assayOrdered By: Daina Forde on 44-92-3822BXL Coag (PPP) [Relative time]INR in Platelet poor plasma by Coagulation assaySelect Medical Cleveland Clinic Rehabilitation Hospital, Edwin ShawComment on above:INR Therapeutic Range A) Pre- and [...] 3 - 4.5INR Coag (PPP) [Relative time]0.9 {INR}NormalSelect Medical Cleveland Clinic Rehabilitation Hospital, Edwin ShawComment on above:INR Therapeutic Range A) Pre- and [...] #### BMP, PT, MG, PTT, CBC #### [facility] [address] [place] [address] USALon 12-02-2024L Specimen: [id number] Received: 12/03/24 Status: SUSAN Garnica Num: [id number] Spec Type: Surgical Subm Dr: Nishant Ceja DO Tissues: A Femoral Head - Fracture (R HIP) Procedures: HE/2, Gross/Micro L4, Decalcification Age/ Patient Sex Location Account Attending Physician Rehan Trejo/Sandeep JohnN [id number] Luis Alberto Hearn MD SPEC NUM: [id number] RECD: 12/03/24 STATUS: SUSAN GARNICA NUM: [id number] BEA: 12/02/24-[address]: Nishant Ceja DO ENTERED: 12/03/[address] [facility] [address]: SPEC TYPE: Surgical DEPT: S ENTERED BY: [id number] RECV BY: [id number] ORDERED: HE/2, Gross/Micro L4, Decalcification ORDERED: HE/2, [...] to yellow-bond, glistening, and uniform cut surfaces. Pest Control Technician sections are submitted in A1?A2 after decalcification in rapid Abdoul immuno. (2, , [id number] A) Microscopic Description Microscopic examination is performed. Specimen: [id number] Received: 12/03/24 Status: SUSAN Garnica Num: [id number] Spec Type: Surgical Subm Dr: Nishant Ceja DO Tissues: A Femoral Head - Fracture (R HIP) Procedures: HE/2, Gross/Micro L4, Decalcification Patient: Rehan Trejo [id number] (Continued) Specimen: [id number] Received: 12/03/24 (Continued) Signed (signature on file) Rahul Correia MD 12/10/24925 (signature on file) Rustam Correia MD 12/10/24926 Specimen: [id number] Received: 12/03/24 Status: SUSAN Garnica Num: [id number] Spec Type: Surgical Subm Dr: Nishant Ceja DO Tissues: A Femoral Head - Fracture (R HIP) Procedures: WALESKA/Slim, Gross/Micro L4, Decalcification Patient: VirgilioRehan dubon [id number] (Continued) Specimen: [id number] Received: 12/03/24 (Continued) CPT Codes 23851, 29927 Specimen: [id number] Received: 12/03/24 Status: SUSAN Garnica Num: [id number] Spec Type: Surgical Subm Dr: Nishant Ceja DO Tissues: A Femoral Head - Fracture (R HIP) Procedures: HE/2, Gross/Micro L4, Decalcification Patient: Rehan Trejo [id number] (Continued) Signed (signature on file) Rahul Correia MD 12/10/24 0926 (signature on file) Rahul Correia MD 12/10/24 0927NormBaptist Health Doctors Hospital Physician GroupMagnesium [Mass/volume] in Serum or PlasmaOrdered By: Diana Forde on 13-48-2368Zjqfwxvcq [Mass/Vol]Magnesium [Mass/volume] in Serum or Plasma1.9-2.7FMercy Health St. Elizabeth Youngstown HospitalMagnesium [Mass/Vol]2.2 mg/dL Normal1.9-2.7FMercy Health St. Elizabeth Youngstown HospitalComment on above:Result Comment: PERFORMED BY: [facility] [address] [place] [address] PATHOLOGIST CIGAR HEAD STRINGER CHACORTA DE DIOS M.D.Performed By: #### BMP, PT, MG, PTT, CBC #### [facility] [address] [place] [address] USAPartial Thromboplastin Timeon 95-51-5410vNBW Coag (Bld) [Time]27.2 lBciexa39.1-36.5The [facility] Physician GroupComment on above:Result Comment: A hematocrit value greater than 55% may lead to inaccurate results in coagulation testing. Patients having hematocrit values >55% require a special collection tube for coagulation studies. Please contact the laboratory at [phone] for redraw instructions. PERFORMED BY: [facility] [address] [place] [address] PATHOLOGIST CIGAR HEAD STRINGER MOHAMED M EL-FAKHARANY M.D.Performed By: #### BMP, PT, MG, PTT, CBC #### [facility] [address] [place] [address] USAProthrombin time (PT)Ordered By: Diana Forde on 12-02-2024 PT Coag (PPP) [Time]Prothrombin time (PT)9.0-12.9[facility], [facility] ShawComment on above:A hematocrit value greater than 55% may lead to inaccurate results in coagulation testing. Patientshaving hematocrit values >55% require a special collection tube for coagulation studies. Please contact the laboratory at [phone] for redraw instructions.PT Coag (PPP) [Time]10.6 s Normal9.0-12.9[facility] Hospital, Edwin ShawComment on above:A hematocrit value greater than 55% may lead to inaccurate results in coagulation testing. Patientshaving hematocrit values >55% require a special collection tube for coagulation studies. Please contact the laboratory at [phone] for redraw instructions.Result Comment: A hematocrit value greater than 55% may lead to inaccurate results in coagulation testing. Patients having hematocrit values >55% require a special collection tube for coagulation studies. Please contact the laboratory at [phone] for redraw instructions.Performed By: #### BMP, PT, MG, PTT, CBC #### [address] [address] USAType and Screenon 67-78-9907QTR and Rh group Nom (Bld) Blood group B Rh(D) positiveNormBaptist Health Doctors Hospital Physician GroupComment on above: Result Comment: PERFORMED BY: [place] [id number] PATHOLOGIST CIGAR HEAD STRINGER CHACORTA DE DIOS M.D.XR hip RT min 2V(w/wo pelvis)*on 65-38-8886DQ hip RT min 2V(w/wo pelvis)*[facility] Main [address] [address] XRay Report Signed Patient: Rehan Trejo MR#: [id number] : 1965 Acct:[id number] Age/Sex: 59 / M ADM Date: 12/01/24 Loc: 4N Room: [address] [place] [address] Type: ADM IN Attending Dr: Luis Alberto [...] Rivera M.D. 12/02/2024 8:15 AM Dictation Location: [place] [address] Transcribed By: [facility] 12/02/24 0815 Dictated By: Nikos Rivera MD 12/02/24 0812 Signed By: 12/02/24 0815[facility] Physician GroupXR low pelvis w/RT x-table hipon 88-10-2392TM low pelvis w/RT x-table [facility] Main [place] [address] [place] [address] XRay Report Signed Patient: Rehan Trejo MR#: [id number] : 1965 Acct:[id number] Age/Sex: 59 / M ADM Date: 12/01/24 Loc: 4N Room: [address] [place] [address] Type: ADM IN Attending Dr: Luis Alberto [...] Saxena M.D. 12/02/2024 9:09 PM Dictation Location: [place] [address] Transcribed By: [facility] 12/02/242108 Dictated By: Zaire Saxena DO 12/02/242106 Signed By: 12/02/242108[facility] Physician GroupaPTT in Platelet poor plasma by Coagulation assayOrdered By: Diana Forde on 93-37-5305gFXU Coag (PPP) [Time] Activated partial thromboplastin time (aPTT) in platelet poor plasma by coagulation a25.1-36.5FMercy Health St. Elizabeth [facility]stown HospitalComment on above:A hematocrit value greater than 55% may lead to inaccurate results in coagulation testing. Patientshaving hematocrit values >55% require a special collection tube for coagulation studies. Please contact the laboratory at [phone] for redraw instructions.aPTT Coag (PPP) [Time]27.2 s25.1-36.5FMercy Health St. Elizabeth Youngstown HospitalComment on above:A hematocrit value greater than 55% may lead to inaccurate results in coagulation testing. Patientshaving hematocrit values >55% require a special collection tube for coagulation studies. Please contact the laboratory at [phone] for redraw instructions.Office Visiton 10-01-2024 Follow-up [id number] Rehan Trejo 1965 M Date Provider Department Center 10/01/2024 92310-HXXTRQELISABETH VIDAL [facility] No family history on file Level of Service:76726 [place] OFFICE/OUTPATIENT ESTABLISHED MOD MDM 30 MIN Reason for Visit and Comments: Chest Pain [363997] - Intermittent, describes it as sharp at times. Hypertension [880328] Hyperlipidemia [182] - He stopped taking atorvastatin for no reason in particular. Abnormal ECG [293] - Has loop recorder, denies palpitations and lightheadedness/syncope. Shortness of Breath [614662] - Gets SOB w/wo exertion.NormalPeoples HospitalCB AUTO DIFFon 85-77-2801OXRA #0.0 103/ulNormal0.0-0.1The [facility] Behavioral Hospitalment on above:Performed By: #### BNP, T7, CMP, TSH #### [facility] [address] [place] [address] Dr. Get WhittenBasophils/100 WBC (Bld)0.4 %Normal0.2-2.0The [facility] Comment on above:Performed By: #### BNP, T7, CMP, TSH #### [facility] [address] [place] [address] Dr. Get Babcock #0.1 103/ulNormal0.0-0.7The [facility] City HospitalComment on above: Performed By: #### BNP, T7, CMP, TSH #### [facility] [address] [place] [address] Dr. Get Paytonosinophils/100 WBC (Bld)0.5 %Critically low0.9-7.0The [facility] Behavioral Hospitalment on above:Performed By: #### BNP, T7, CMP, TSH #### [facility] [address] [place] [address] Dr. Get Paytonrythrocyte distribution width (RBC) [Ratio]18.6 %Critically high 11.0-15.0The [facility] Behavioral Hospitalment on above:Performed By: #### BNP, T7, CMP, TSH #### [facility] [address] [place] [address] Dr. Get WhittenHematocrit (Bld) [Volume fraction]33.3 %Critically low42.0-54.0 The [facility] Behavioral Hospitalment on above:Performed By: #### BNP, T7, CMP, TSH #### [facility] [address] [place] [address] Dr. Get WhittenHemoglobin (Bld) [Mass/Vol]11.1 g/dLCritically low14.0-18.0The [facility] on above:Performed By: #### BNP, T7, CMP, TSH #### [facility] [address] [place] [address] Dr. Get WhittenIG #0.30 10e3/ulCritically high0.00-0.03The [facility] Comment on above:Performed By: #### BNP, T7, CMP, TSH #### [facility] [address] [place] [address] Dr. Get Sanford %3.3 %Critically high0.0-0.5The [facility] HospitalComment on above:Performed By: #### BNP, T7, CMP, TSH #### [facility] [address] [place] [address] Dr. Get Grimes #3.0 103/ulNormal1.2-3.8The [facility] HospitalComment on above:Performed By: #### BNP, T7, CMP, TSH #### [facility] [address] [place] [address] Dr. Get Grimeshocytes/100 WBC (Bld)32.7 %Ztujdq64.5-60.0The [facility] HospitalComment on above:Performed By: #### BNP, T7, CMP, TSH #### [facility] [address] [place] [address] Dr. Get HeadMAGRUDER HOSPITAL DIFF REQNONormalThe [facility] City HospitalComment on above: Performed By: #### BNP, T7, CMP, TSH #### [facility] [address] [place] [address] Dr. Get Fried (RBC) [Entitic mass]34.8 pgCritically high25.9-34.0The [facility] HospitalComment on above:Performed By: #### BNP, T7, CMP, TSH #### [facility] [address] [place] [address] Dr. Get WhittenNYU [facility] (RBC) [Mass/Vol]33.3 g/dPFsvvwi59.9-35.2The [facility] HospitalComment on above:Performed By: #### BNP, T7, CMP, TSH #### [facility] [address] [place] [address] Dr. Get Fried (RBC) [Entitic vol]104.4 fLCritically high80.0-94.0The [facility] HospitalComment on above:Performed By: #### BNP, T7, CMP, TSH #### [facility] [address] [place] [address] Dr. Get Bill #0.4 103/ulNormal0.3-0.8The [facility] City HospitalComment on above:Performed By: #### BNP, T7, CMP, TSH #### [facility] [address] [place] [address] Dr. Get Lockettocytes/100 WBC (Bld)4.2 %Normal1.7-12.0The [facility] Comment on above:Performed By: #### BNP, T7, CMP, TSH #### [facility] [address] [place] [address] Dr. Get Falcon #5.4 103/ulNormal1.4-6.5The [facility] HospitalComment on above:Performed By: #### BNP, T7, CMP, TSH #### [facility] [address] [place] [address] Dr. Get Kelloggophils/100 WBC (Bld)58.9 %Dwdtmk75.0-75.0The [facility] HospitalComment on above:Performed By: #### BNP, T7, CMP, TSH #### [facility] [address] [place] [address] Dr. Get Castro mean volume (Bld) [Entitic vol]9.5 fLNormal9.5-13.5The [facility] HospitalComment on above:Performed By: #### BNP, T7, CMP, TSH #### [facility] [address] [place] [address] Dr. Get WhittenPLT187 103/twHgpxug148-827Xew [facility] City HospitalComment on above: Performed By: #### BNP, T7, CMP, TSH #### [facility] [address] [place] [address] Dr. Get WhittenRBC3.19 106/ulCritically low4.70-6.10The [facility] HospitalComment on above:Performed By: #### BNP, T7, CMP, TSH #### [facility] [address] [place] [address] [address] Get WhittenWBC9.1 103/ulNormal4.0-11.0The [facility] HospitalComment on above: Performed By: #### BNP, T7, CMP, TSH #### [facility] [address] [place] [address] Dr. Get WhittenPROF 14(COMP METB)on 55-41-2746Uazandu [Mass/Vol]3.9 g/dLNormal 3.4-5.0The [facility] City HospitalComment on above:Performed By: #### CMP #### [facility] [address] [place] [address] Dr. Get WhittenAlbumin/Globulin [Mass ratio]1.1 {ratio}NormalThe [facility]oria City HospitalComment on above:Performed By: #### CMP #### [facility] [address] [place] [address] Dr. Get MartinezP [Catalytic activity/Vol]34 U/LCritically tso49-466Som [facility] HospitalComment on above:Performed By: #### CMP #### [facility] [address] [place] [address] Dr. Get Picharod [Catalytic activity/Vol]21 U/BHvviqj66-77Twf [facility] HospitalComment on above:Performed By: #### CMP #### [facility] [address] [place] [address] Dr. Get Crow gap [Moles/Vol]17.7 mmol/LNormalThe [facility] Comment on above:Performed By: #### CMP #### [facility] [address] [place] [address] Dr. Get WhittenAST [Catalytic activity/Vol]15 U/TUvdyzu54-29Yiy [facility] HospitalComment on above:Performed By: #### CMP #### [facility] [address] [place] [address] Dr. Get WhittenBilirubin [Mass/Vol]0.3 mg/dLNormal0.2-1.0The [facility] Comment on above:Performed By: #### CMP #### [facility] [address] [address] [address] Get WhittenCalcium [Mass/Vol]8.7 mg/dLNormal8.5-10.1The [facility] Comment on above:Performed By: #### CMP #### [facility] [address] [address] [address] Get WhittenChloride [Moles/Vol]99 mmol/FQrjlvp27-808Pek [facility] Comment on above:Performed By: #### CMP #### [facility] [address] [address] [address] Get WhittenCO2 [Moles/Vol]21.8 mmol/BIigivo19.0-32.0The [facility] Comment on above:Performed By: #### CMP #### [facility] [address] [address] [address] Get WhittenCreatinine [Mass/Vol]1.69 mg/dLCritically high0.70-1.30The [facility] HospitalComment on above:Performed By: #### CMP #### [facility] [address] [address] [address] Deutsch ChangEGFR-AF DAIFCKDI92 mL/min/1.24l5Tmpujgtbmp low>=60The [facility] HospitalComment on above:Performed By: #### CMP #### [facility] [address] [address] [address] Get PaytonGFR-NON AF DXKZHYOY13 mL/min/1.64n8Goiveuxetf low>=60The [facility] HospitalComment on above:Performed By: #### CMP #### [facility] [address] [address] [address] Get WhittenGlobulin (S) [Mass/Vol]3.6 g/dLNoalThe [facility] City HospitalComment on above:Performed By: #### CMP #### [facility] [address] [address] [address] Get WhittenGlucose [Mass/Vol]96 mg/zEXdesdj41-827Xiz [facility] Comment on above:Performed By: #### CMP #### [facility] [address] [address] [address] Get WhittenPotassium [Moles/Vol]3.5 mmol/LNormal3.5-5.1The [facility] Comment on above:Performed By: #### CMP #### [facility] [address] [address] [address] Get WhittenProtein [Mass/Vol]7.5 g/dLNormal6.4-8.2The [facility] Comment on above:Performed By: #### CMP #### [facility] [address] [address] [address] Get WhittenSodium [Moles/Vol]135 mmol/LCritically zjr257-674Vkp [facility] HospitalComment on above:Performed By: #### CMP #### [facility] [address] [place] [address] Dr. Get WhittenUrea nitrogen [Mass/Vol]15.0 mg/dLNormal7.0-18.0The [facility] HospitalComment on above:Performed By: #### CMP #### [facility] [address] [place] [address] Dr. Get De Jesus nitrogen/Creatinine [Mass ratio]8.9 mg/mgNormalThe [facility] HospitalComment on above:Performed By: #### CMP #### [facility] [address] [place] [address] Dr. Get WhittenT3, TOTAL (TRIIODOTHYRONINE)on 02-98-1110U3, TOTAL<20Critically ohw86-470Qsp [facility] HospitalComment on above:Performed By: #### CVDTBH #### [facility] [address] [place] [address] Dr. Get SeguraONIArell 67-90-7875Btywkrr (P) [Mass/Vol]ug/dLCritically low 11-32The [facility] HospitalComment on above:Performed By: #### CMP #### [facility] [address] [place] [address] Dr. Get Dawson 84-62-6919Ygwdqstgavf peptide B (Bld) [Mass/Vol]50.0 pg/mL Normal<=900.0The [facility] HospitalComment on above:Performed By: #### BNP, T7, CMP, TSH #### [facility] [address] [place] [address] Dr. Get Crockett ANA ADMITon 90-55-1066ZG [Catalytic activity/Vol]173 U/L Yaksyx57-925Aeq [facility] HospitalComment on above:Performed By: #### BNP, T7, CMP, TSH #### [facility] [address] [place] [address] Dr. Get Melara.MB [Mass/Vol]1.64 ng/mLNormal<=3.60[facility] Comment on above:Performed By: #### BNP, T7, CMP, TSH #### [facility] [address] [place] [address] Dr. Get KatzTROP4.3 pg/mLNormal4.0-76.1The [facility] HospitalComment on above:Result Comment: CUT-OFF POINTS HAVE BEEN ESTABLISHED BASED ON THE FOURTH UNIVERSAL DEFINITIONS OF MYOCARDIAL INFARCTION. THE UPPER REFERENCE LIMIT (URL) OF TROPONIN, DEFINED THE 99TH PERCENTILE OF cTnI DISTRIBUTION IN A REFERENCE POPULATION, HAS BEEN CONFIRMED THE DECISION THRESHOLD FOR NC DIAGNOSIS.Performed By: #### BNP, T7, CMP, TSH #### [facility] [address] [place] [address] Dr. Get SinghO72 ng/fBViyleh41-85Wrv [facility] HospitalComment on above: Performed By: #### BNP, T7, CMP, TSH #### [facility] [address] [place] [address] Dr. Get Meyer AUTO DIFFon 41-78-5081HGEA #0.1 103/ulNormal0.0-0.1The [facility] HospitalCommymichigan medical center on above:Performed By: #### CVDTBH #### [facility] [address] [place] [address] Dr. Get WhittenBasophils/100 WBC (Bld)0.6 %Normal0.2-2.0[facility] Comment on above:Performed By: #### CVDTBH #### [facility] [address] [place] [address] Dr. Get Babcock #0.0 103/ulNormal0.0-0.7The [facility] HospitalComment on above: Performed By: #### CVDTBH #### [facility] [address] [place] [address] Dr. Get Paytonosinophils/100 WBC (Bld)0.4 %Critically low0.9-7.0The [facility] HospitalComment on above:Performed By: #### CVDTBH #### [facility] [address] [place] [address] Dr. Get Paytonrythrocyte distribution width (RBC) [Ratio]18.6 %Critically high 11.0-15.0The [facility] HospitalComment on above:Performed By: #### CVDTBH #### [facility] [address] [place] [address] Dr. Get WhittenHematocrit (Bld) [Volume fraction]35.4 %Critically low42.0-54.0 The [facility] HospitalComment on above:Performed By: #### CVDTBH #### [facility] [address] [place] [address] Dr. Get WhittenHemoglobin (Bld) [Mass/Vol]11.9 g/dLCritically low14.0-18.0The [facility] HospitalComment on above:Performed By: #### CVDTBH #### [facility] [address] [place] [address] Dr. Get Sanford #0.28 10e3/ulCritically high0.00-0.03The [facility] Comment on above:Performed By: #### CVDTBH #### [facility] [address] [place] [address] Dr. Get Sanford %3.5 %Critically high0.0-0.5The [facility] HospitalComment on above:Performed By: #### CVDTBH #### [facility] [address] [place] [address] Dr. Yilan ChangLYMPH #3.3 103/ulNormal1.2-3.8The [facility] HospitalComment on above:Performed By: #### CVDTBH #### [facility] [address] [place] [address] Dr. Get Hargrovemphocytes/100 WBC (Bld)41.6 %Aqlfha29.5-60.0The [facility] HospitalComment on above:Performed By: #### CVDTBH #### [facility] [address] [place] [address] Dr. Get Ace DIFF REQNONormalThe [facility] HospitalComment on above: Performed By: #### CVDTBH #### [facility] [address] [place] [address] Dr. Get Manley (RBC) [Entitic mass]35.1 pgCritically high25.9-34.0The [facility] HospitalComment on above:Performed By: #### CVDTBH #### [facility] [address] [place] [address] Dr. Get Fried (RBC) [Mass/Vol]33.6 g/tDCooelr81.9-35.2The [facility] HospitalComment on above:Performed By: #### CVDTBH #### [facility] [address] [place] [address] Dr. Get Whitten (RBC) [Entitic vol]104.4 fLCritically high80.0-94.0The [facility] HospitalComment on above:Performed By: #### CVDTBH #### [facility] [address] [place] [address] Dr. Get Bill #0.4 103/ulNormal0.3-0.8The [facility] HospitalComment on above:Performed By: #### CVDTBH #### [facility] [address] [place] [address] Dr. Gte Lockettocytes/100 WBC (Bld)5.0 %Normal1.7-12.0The [facility] Comment on above:Performed By: #### CVDTBH #### [facility] [address] [place] [address] Dr. Get Falcon #3.9 103/ulNormal1.4-6.5The [facility] HospitalComment on above:Performed By: #### CVDTBH #### [facility] [address] [place] [address] Dr. Get Andersonutrophils/100 WBC (Bld)48.9 %Jwqvom81.0-75.0The [facility] HospitalComment on above:Performed By: #### CVDTBH #### [facility] [address] [place] [address] Dr. Get WhittenPlatelet mean volume (Bld) [Entitic vol]9.5 fLNormal9.5-13.5The [facility] HospitalComment on above:Performed By: #### CVDTBH #### [facility] [address] [place] [address] Dr. Get WhittenPLT182 103/kjKswxcz582-541Nvv [facility] HospitalComment on above: Performed By: #### CVDTBH #### [facility] [address] [place] [address] Dr. Get WhittenRBC3.39 106/ulCritically low4.70-6.10The [facility] HospitalComment on above:Performed By: #### CVDTBH #### [facility] [address] [place] [address] Dr. Get WhittenWBC8.0 103/ulNormal4.0-11.0The [facility] HospitalComment on above: Performed By: #### CVDTBH #### [facility] [address] [place] [address] Dr. Get WhittenCT CSPINE WO CONon 56-55-2335AD CSPINE WO CONEXAMINATION: CT CSPINE WO CON [...] Electronically authenticated by: SHEN SOSA Date: 2022-11-27 11:26[facility]imaCT STROKE HEAD WOon [id number] STROKE HEAD WOEXAMINATION: CT STROKE HEAD WO [...] Electronically authenticated by: SHEN SOSA Date: 2022-11-27 11:16[facility]imaCovid-19 PCR (CVDTBH)on 65-89-7182WAZZ-CoV-2 (COVID-19) RNA ASHLEE+probe Ql (Unsp spec)Not detectedNormalNOT DETECTEDThe [facility] Comment on above:Result Comment: THIS TEST IS NOT APPROVED BY THE FDA. IT HAS BEEN AUTHORIZED FOR USE UNDER AN EMERGENCY USE AUTHORIZATION.Performed By: #### CMP #### [facility] [address] [place] [address] Dr. Get MercadoANOL (BLD ALC)on 18-08-3881TXV NOTENOTE: 80 mg/dl is the legal limit for a blood alcohol levelNoMcCullough-Hyde Memorial HospitalComment on above: Performed By: #### BNP, T7, CMP, TSH #### [facility] [address] [place] [address] Dr. Get Paytonthanol [Mass/Vol]mg/dLNormalThMarietta Osteopathic ClinicComment on above:Performed By: #### BNP, T7, CMP, TSH #### [facility] [address] [place] [address] Dr. Get WhittenMAGNESIUMon 32-81-9489Sccqfnxwm [Mass/Vol]2.3 mg/dLNormal1.8-2.4 The [facility] HospitalComment on above:Performed By: #### BNP, T7, CMP, TSH #### [facility] [address] [place] [address] Dr. Get WhittenPROF 14(COMP METB)on 38-28-6061Lnwomla [Mass/Vol]4.1 g/dLNormal 3.4-5.0The [facility] HospitalComment on above:Performed By: #### BNP, T7, CMP, TSH #### [facility] [address] [place] [address] Dr. Get WhittenAlbumin/Globulin [Mass ratio]1.1 {ratio}NormalThe [facility] HospitalComment on above:Performed By: #### BNP, T7, CMP, TSH #### [facility] [address] [place] [address] Dr. Get MartinezP [Catalytic activity/Vol]36 U/LCritically tdp89-887Ryr [facility] HospitalComment on above:Performed By: #### BNP, T7, CMP, TSH #### [facility] [address] [place] [address] Dr. Get MartinezT [Catalytic activity/Vol]15 U/LCritically dig68-89Yos [facility] HospitalComment on above:Performed By: #### BNP, T7, CMP, TSH #### [facility] [address] [address] [address] Get Torrezon gap [Moles/Vol]15.0 mmol/LNormalThe [facility] Comment on above:Performed By: #### BNP, T7, CMP, TSH #### [facility] [address] [address] [address] Get WhittenAST [Catalytic activity/Vol]13 U/LCritically tql60-95Xhx [facility] HospitalComment on above:Performed By: #### BNP, T7, CMP, TSH #### [facility] [address] [place] [address] Dr. Get WhittenBilirubin [Mass/Vol]0.3 mg/dLNormal0.2-1.0The [facility] Comment on above:Performed By: #### BNP, T7, CMP, TSH #### [facility] [address] [place] [address] Dr. Get WhittenCalcium [Mass/Vol]9.1 mg/dLNormal8.5-10.1[facility] Comment on above:Performed By: #### BNP, T7, CMP, TSH #### [facility] [address] [place] [address] Dr. Get WhittenChloride [Moles/Vol]101 mmol/NCmlqkk79-951CevCleveland Clinic Fairview Hospital Comment on above:Performed By: #### BNP, T7, CMP, TSH #### [facility] [address] [place] [address] Dr. Get WhittenCO2 [Moles/Vol]22.2 mmol/EYdxgzu95.0-32.0The [facility] Comment on above:Performed By: #### BNP, T7, CMP, TSH #### [facility] [address] [place] [address] Dr. Get WhittenCreatinine [Mass/Vol]1.84 mg/dLCritically high0.70-1.30The [facility] HospitalComment on above:Performed By: #### BNP, T7, CMP, TSH #### [facility] [address] [place] [address] Dr. Get PaytonGFR-AF LCIPWDMI13 mL/min/1.31w1Gfldxtpscr low>=60The [facility] HospitalComment on above:Performed By: #### BNP, T7, CMP, TSH #### [facility] [address] [address] [address] Get PaytonGFR-NON AF OMPYCTXG12 mL/min/1.08h9Ijnuqdafpp low>=60The [facility] HospitalComment on above:Performed By: #### BNP, T7, CMP, TSH #### [facility] [address] [place] [address] Dr. Get WhittenGlobulin (S) [Mass/Vol]3.6 g/dLNormalThe [facility] HospitalComment on above:Performed By: #### BNP, T7, CMP, TSH #### [facility] [address] [place] [address] Dr. Get WhittenGlucose [Mass/Vol]87 mg/hZHkcipk39-977Xmn [facility] Comment on above:Performed By: #### BNP, T7, CMP, TSH #### [facility] [address] [place] [address] Dr. Get WhittenPotassium [Moles/Vol]4.2 mmol/LNormal3.5-5.1The [facility] Comment on above:Performed By: #### BNP, T7, CMP, TSH #### [facility] [address] [place] [address] Dr. Get WhittenProtein [Mass/Vol]7.7 g/dLNormal6.4-8.2The [facility] Comment on above:Performed By: #### BNP, T7, CMP, TSH #### [facility] [address] [address] [address] Get WhittenSodium [Moles/Vol]134 mmol/LCritically tov224-027Onz [facility] HospitalComment on above:Performed By: #### BNP, T7, CMP, TSH #### [facility] [address] [address] [address] Get WhittenUrea nitrogen [Mass/Vol]14.0 mg/dLNormal7.0-18.0[facility] HospitalComment on above:Performed By: #### BNP, T7, CMP, TSH #### [facility] [address] [place] [address] Dr. Get De Jesus nitrogen/Creatinine [Mass ratio]7.6 mg/mgNoMcCullough-Hyde Memorial HospitalComment on above:Performed By: #### BNP, T7, CMP, TSH #### [facility] [address] [place] [address] Dr. Get WhittenPROTIMEon 46-20-3795VEG Coag (PPP) [Relative time]0.98 {INR} NormalCleveland Clinic Fairview HospitalCommymichigan medical center on above:Performed By: #### BNP, T7, CMP, TSH #### [facility] [address] [place] [address] Dr. Get Monteiro GUIDELINESSEE BELOWKindred Hospital LimaComment on above:Result Comment: DESIRED INR: 2.0 - 3.0 CONDITIONS NOT LISTED BELOW 2.5 - 3.5 FOR PROSTHETIC HEART VALVE REPLACEMENT 2.5 - 3.5 RECURRENT THROMBOSIS Performed By: #### BNP, T7, CMP, TSH #### [facility] [address] [place] [address] Dr. Get Molina Coag (PPP) [Time]10.4 sNormal9.0-11.6The [facility] Comment on above:Performed By: #### BNP, T7, CMP, TSH #### [facility] [address] [place] [address] Dr. Get Henley 65-49-1107lACS Coag (Bld) [Time]30.4 mYoljqc45.3-36.2[facility] HospitalComment on above:Performed By: #### BNP, T7, CMP, TSH #### [facility] [address] [place] [address] Dr. Get ArcherMATIC COVID-19 ANTIGENon [id number] StatementSEE BELOW NormalCleveland Clinic Fairview HospitalComment on above:Result Comment: This test has not [...] sooner.Performed By: #### CMP, HSTROPN, BNP #### [facility] [address] [place] [address] Dr. Get Llanos-CoV-2 (COVID-19) RNA ASHLEE+probe Ql (Unsp spec)NegativeNormal NEGATIVEThe [facility] HospitalComment on above:Performed By: #### CMP, HSTROPN, BNP #### [facility] [address] [place] [address] Dr. Get WhittenT4on 54-96-1164U5 [Mass/Vol]0.90 ug/dLCritically low4.50-12.10The [facility] HospitalComment on above:Performed By: #### BNP, T7, CMP, TSH #### [facility] [address] [place] [address] Dr. Get Charles, HIGH SENSITIVITYon 49-89-6882EZBHFY0.1 pg/mLNormal 4.0-76.1The [facility] Hospitalment on above:Result Comment: CUT-OFF POINTS HAVE BEEN ESTABLISHED BASED ON THE FOURTH UNIVERSAL DEFINITIONS OF MYOCARDIAL INFARCTION. THE UPPER REFERENCE LIMIT (URL) OF TROPONIN, DEFINED THE 99TH PERCENTILE OF cTnI DISTRIBUTION IN A REFERENCE POPULATION, HAS BEEN CONFIRMED THE DECISION THRESHOLD FOR NC DIAGNOSIS.Performed By: #### BNP, T7, CMP, TSH #### [facility] [address] [place] [address] Dr. Get NoblesHoayanna 90-29-5323RKS918.470 uIU/mLCritically high0.358-3.740The [facility] HospitalComment on above:Performed By: #### BNP, T7, CMP, TSH #### [facility] [address] [id number] [address] Get WhittenXR CHEST 1 [facility] 29-04-1674NL CHEST 1 VEXAMINATION: XR CHEST 1 V [...] Electronically authenticated by: SHEN SOSA Date: 2022-11-27 11:19NoMcCullough-Hyde Memorial HospitalXR CSPINE MIN 4 VIEWSon [id number] CSPINE MIN 4 VIEWS EXAMINATION: XR CSPINE [...] Electronically authenticated by: SHEN SOSA Date: 2022-10-24 10:22NoMcCullough-Hyde Memorial HospitalXR LSPINE MIN 4 VIEWSon [id number] LSPINE MIN 4 VIEWS EXAMINATION: XR LSPINE [...] Electronically authenticated by: SHEN SOSA Date: 2022-10-24 10:19[facility] PYLORI ANTIBODY IGGon 04-16-2022H. PYLORI IGG ABS0.07 Index ValueNormal0.00-0.79[facility] HospitalComment on above:Result Comment: Negative <0.80 Equivocal 0.80 - 0.89 Positive >0.89Performed By: #### BNP, T7, CMP, TSH #### [facility] [address] [place] [address] Dr. Get Dawson 03-80-4291Fkxpmnkxiln peptide B (Bld) [Mass/Vol]138.0 pg/mL Normal<=900.0The [facility] HospitalComment on above:Performed By: #### BNP, T7, CMP, TSH #### [facility] [address] [place] [address] Dr. Get Meyer AUTO DIFFon [id number] #0.0 103/ulNormal0.0-0.1The [facility] HospitalComment on above:Performed By: #### CMP, HSTROPN, BNP #### [facility] [address] [place] [address] Dr. Get Arredondosophils/100 WBC (Bld)0.4 %Normal0.2-2.0The [facility] Comment on above:Performed By: #### CMP, HSTROPN, BNP #### [facility] [address] [place] [address] Dr. Deutsch ChangEAustin #0.0 103/ulNormal0.0-0.7The [facility] HospitalComment on above: Performed By: #### CMP, HSTROPN, BNP #### [facility] [address] [address] [address] Get Paytonosinophils/100 WBC (Bld)0.3 %Critically low0.9-7.0The [facility] Hospitalment on above:Performed By: #### CMP, HSTROPN, BNP #### [facility] [address] [place] [address] Dr. Get Paytonrythrocyte distribution width (RBC) [Ratio]13.2 %Ulpfjy27.0-15.0 The [facility] Hospitalment on above:Performed By: #### CMP, HSTROPN, BNP #### [facility] [address] [place] [address] Dr. Get WhittenHematocrit (Bld) [Volume fraction]37.9 %Critically low42.0-54.0 The [facility] HospitalComment on above:Performed By: #### CMP, HSTROPN, BNP #### [facility] [address] [place] [address] Dr. Get WhittenHemoglobin (Bld) [Mass/Vol]13.1 g/dLCritically low14.0-18.0The [facility] Hospitalment on above:Performed By: #### CMP, HSTROPN, BNP #### [facility] [address] [place] [address] Dr. Get Sanford #0.24 10e3/ulCritically high0.00-0.03The [facility] Comment on above:Performed By: #### CMP, HSTROPN, BNP #### [facility] [address] [place] [address] Dr. Get Sanford %3.1 %Critically high0.0-0.5The [facility] Hospitalment on above:Performed By: #### CMP, HSTROPN, BNP #### [facility] [address] [place] [address] Dr. Get Otoole #3.1 103/ulNormal1.2-3.8The [facility] HospitalComment on above:Performed By: #### CMP, HSTROPN, BNP #### [facility] [address] [address] [address] Get Hargrovemphocytes/100 WBC (Bld)40.3 %Lpowit42.5-60.0The [facility] HospitalComment on above:Performed By: #### CMP, HSTROPN, BNP #### [facility] [address] [place] [address] Dr. Get Ace DIFF REQNONormalThe [facility] HospitalComment on above: Performed By: #### CMP, HSTROPN, BNP #### [facility] [address] [place] [address] Dr. Get Fried (RBC) [Entitic mass]36.1 pgCritically high25.9-34.0The [facility] HospitalComment on above:Performed By: #### CMP, HSTROPN, BNP #### [facility] [address] [place] [address] Dr. Get Fried (RBC) [Mass/Vol]34.6 g/dYSluvmt27.9-35.2The [facility] HospitalComment on above:Performed By: #### CMP, HSTROPN, BNP #### [facility] [address] [place] [address] Dr. Get Fried (RBC) [Entitic vol]104.4 fLCritically high80.0-94.0The [facility] Hospitalment on above:Performed By: #### CMP, HSTROPN, BNP #### [facility] [address] [place] [address] Dr. Get Bill #0.7 103/ulNormal0.3-0.8The [facility] Hospitalment on above:Performed By: #### CMP, HSTROPN, BNP #### [facility] [address] [place] [address] Dr. Get Lockettocytes/100 WBC (Bld)9.4 %Normal1.7-12.0The [facility] Comment on above:Performed By: #### CMP, HSTROPN, BNP #### [facility] [address] [place] [address] Dr. Get Falcon #3.6 103/ulNormal1.4-6.5The [facility] HospitalComment on above:Performed By: #### CMP, HSTROPN, BNP #### [facility] [address] [place] [address] Dr. Get Andersonutrophils/100 WBC (Bld)46.5 %Hqbrto59.0-75.0The [facility] HospitalComment on above:Performed By: #### CMP, HSTROPN, BNP #### [facility] [address] [place] [address] Dr. Get Castro mean volume (Bld) [Entitic vol]8.5 fLCritically low 9.5-13.5The [facility] HospitalComment on above:Performed By: #### CMP, HSTROPN, BNP #### [facility] [facility] [address] [place] [address] Dr. Get WhittenPLT128 103/ulCritically [id number] [facility] Hospitalment on above:Performed By: #### CMP, HSTROPN, BNP #### [facility] [address] [place] [address] Dr. Get WhittenRBC3.63 106/ulCritically low4.70-6.10The [facility] HospitalComment on above:Performed By: #### CMP, HSTROPN, BNP #### [facility] [address] [place] [address] Dr. Get WhittenWBC7.7 103/ulNormal4.0-11.0The [facility] HospitalComment on above: Performed By: #### CMP, HSTROPN, BNP #### [facility] [address] [place] [address] Dr. Get Kelley THYROXINE INDEX T7on 45-48-0496GDN1.22Critically low 1.30-4.50The [facility] HospitalComment on above:Performed By: #### BNP, T7, CMP, TSH #### [facility] [address] [place] [address] Dr. Get WhittenT3U37.0 %Vhemqq63.0-40.0The [facility] Hospitalment on above: Performed By: #### BNP, T7, CMP, TSH #### [facility] [address] [place] [address] Dr. Get WhittenT4 [Mass/Vol]0.60 ug/dLCritically low4.50-12.10The [facility]Commymichigan [facility] on above:Performed By: #### BNP, T7, CMP, TSH #### [facility] [address] [place] [address] Dr. Get Oconnell 77-19-8322Ugap [Mass/Vol]74.0 ug/wMMzlrzj76.0-175.0The [facility] HospitalComment on above:Performed By: #### CVDTBH #### [facility] [address] [place] [address] Dr. Get WhittenPROF 14(COMP METB)on 61-39-5885Mwrhoyv [Mass/Vol]3.6 g/dLNormal 3.4-5.0The [facility] on above:Performed By: #### BNP, T7, CMP, TSH #### [facility] [address] [place] [address] Dr. Get WhittenAlbumin/Globulin [Mass ratio]1.3 {ratio}NormalThe [facility] on above:Performed By: #### BNP, T7, CMP, TSH #### [facility] [address] [place] [address] Dr. Get MartinezP [Catalytic activity/Vol]41 U/LCritically qkr61-571Gmr [facility] on above:Performed By: #### BNP, T7, CMP, TSH #### [facility] [address] [place] [address] Dr. Get MartinezT [Catalytic activity/Vol]111 U/LCritically njfh35-06Mwf [facility] HospitalComment on above:Performed By: #### BNP, T7, CMP, TSH #### [facility] [address] [address] [address] Get WhittenAnion gap [Moles/Vol]10.3 mmol/LNormalThe [facility] Comment on above:Performed By: #### BNP, T7, CMP, TSH #### [facility] [address] [address] [address] Get WhittenAST [Catalytic activity/Vol]30 U/LElbixj90-39Gxq [facility] HospitalComment on above:Performed By: #### BNP, T7, CMP, TSH #### [facility] [address] [place] [address] Dr. Get WhittenBilirubin [Mass/Vol]0.3 mg/dLNormal0.2-1.0[facility] Comment on above:Performed By: #### BNP, T7, CMP, TSH #### [facility] [address] [place] [address] Dr. Get WhittenCalcium [Mass/Vol]8.1 mg/dLCritically low8.5-10.1[facility] HospitalComment on above:Performed By: #### BNP, T7, CMP, TSH #### [facility] [address] [place] [address] Dr. Get WhittenChloride [Moles/Vol]98 mmol/WXwylrg66-923PdvC[facility] Clinic [facility] Comment on above:Performed By: #### BNP, T7, CMP, TSH #### [facility] [address] [place] [address] Dr. Get WhittenCO2 [Moles/Vol]24.7 mmol/RIlzwmy45.0-32.0The [facility] Comment on above:Performed By: #### BNP, T7, CMP, TSH #### [facility] [address] [place] [address] Dr. Get WhittenCreatinine [Mass/Vol]1.24 mg/dLNormal0.70-1.30The [facility] HospitalComment on above:Performed By: #### BNP, T7, CMP, TSH #### [facility] [address] [place] [address] Dr. Yilan ChangEGFR-AF ANGOLAN>60Normal>=60The [facility] HospitalComment on above:Performed By: #### BNP, T7, CMP, TSH #### [facility] [address] [address] [address] Get PaytonGFR-NON AF ANGOLAN=60Normal>=60The [facility] HospitalComment on above:Performed By: #### BNP, T7, CMP, TSH #### [facility] [address] [address] [address] Get WhittenGlobulin (S) [Mass/Vol]2.7 g/dLNormalThe [facility] HospitalComment on above:Performed By: #### BNP, T7, CMP, TSH #### [facility] [address] [address] [address] Get WhittenGlucose [Mass/Vol]107 mg/dLCritically ttcp93-142Pcx [facility] Hospitalment on above:Performed By: #### BNP, T7, CMP, TSH #### [facility] [address] [place] [address] Dr. Get WhittenPotassium [Moles/Vol]4.0 mmol/LNormal3.5-5.1The [facility] Comment on above:Performed By: #### BNP, T7, CMP, TSH #### [facility] [address] [address] [address] Get WhittenProtein [Mass/Vol]6.3 g/dLCritically low6.4-8.2The [facility] Hospitalment on above:Performed By: #### BNP, T7, CMP, TSH #### [facility] [address] [place] [address] Dr. Get WhittenSodium [Moles/Vol]129 mmol/LCritically jqs619-499Qrc [facility] on above:Performed By: #### BNP, T7, CMP, TSH #### [facility] [address] [place] [address] Dr. Get WhittenUrea nitrogen [Mass/Vol]12.0 mg/dLNormal7.0-18.0The [facility] HospitalComment on above:Performed By: #### BNP, T7, CMP, TSH #### [facility] [address] [place] [address] Dr. Get De Jesus nitrogen/Creatinine [Mass ratio]9.7 mg/mgNormalThe [facility] HospitalComment on above:Performed By: #### BNP, T7, CMP, TSH #### [facility] [address] [place] [address] Dr. Get Hidalgo 66-53-6873XYA10.327 uIU/mLCritically high0.358-3.740The [facility] HospitalComment on above:Performed By: #### BNP, T7, CMP, TSH #### [facility] [address] [place] [address] Dr. Get Dawson 19-14-5854Ghvevbhzrpy peptide B (Bld) [Mass/Vol]349.0 pg/mL Normal<=900.0The [facility] on above:Performed By: #### BNP, T7, CMP, TSH #### [facility] [address] [place] [address] Dr. Get Meyer W MANUAL DIFFon [id number] LYMPH #0.26 103/ulNormal The [facility] HospitalComment on above:Performed By: #### CMP #### [facility] [address] [place] [address] Dr. Get EdouardYPICAL LYMPH %2 %NormalThe [facility] on above: Performed By: #### CMP #### [facility] [address] [place] [address] Dr. Get Day #0.0 103/ulNormal0.0-0.3The [facility] HospitalComment on above:Performed By: #### CMP #### [facility] [address] [place] [address] Dr. Get Day %0 %Normal0-5The [facility] HospitalComment on above:Performed By: #### CMP #### [facility] [address] [place] [address] Dr. Get Aceves #0.00 103/ulNormal0.00-0.10The [facility] HospitalComment on above:Performed By: #### CMP #### [facility] [address] [place] [address] Dr. Get Aceves %0.0 %Critically low0.2-2.0The [facility] HospitalComment on above:Performed By: #### CMP #### [facility] [address] [place] [address] Dr. Get Wing #NormalAdena Health System HospitalComment on above:Performed By: #### CMP #### [facility] [address] [place] [address] Dr. Get Wing %NormalThe [facility] HospitalComment on above:Performed By: #### CMP #### [facility] [address] [place] [address] Dr. Get WhittenCORRECTED WBCNormal4.0-11.0The [facility] HospitalComment on above: Performed By: #### CMP #### [facility] [address] [place] [address] Dr. Get Kendrick #0.00 103/ulNormal0.00-0.70The [facility] HospitalComment on above:Performed By: #### CMP #### [facility] [address] [place] [address] Dr. eGt Kendrick%0.0 %Critically low0.9-7.0The [facility] HospitalComment on above:Performed By: #### CMP #### [facility] [address] [place] [address] Dr. Get WhittenHCT38.3 %Critically low42.0-54.0The [facility] HospitalComment on above:Performed By: #### CMP #### [facility] [address] [place] [address] Dr. Get WhittenHGB13.7 g/dlCritically low14.0-18.0The [facility] HospitalComment on above:Performed By: #### CMP #### [facility] [address] [place] [address] Dr. Get Villarreal #1.43 103/ulNormal1.20-3.80The [facility] HospitalComment on above:Performed By: #### CMP #### [facility] [address] [address] [address] Get Villarreal%11.0 %Critically low20.5-60.0The [facility] HospitalComment on above:Performed By: #### CMP #### [facility] [address] [address] [address] Get FriedH36.3 pgCritically high25.9-34.0The [facility] HospitalComment on above:Performed By: #### CMP #### [facility] [address] [place] [address] Dr. Get FriedHC35.8 g/dlCritically high29.9-35.2The [facility] HospitalComment on above:Performed By: #### CMP #### [facility] [address] [place] [address] Dr. Get FriedV101.6 fLCritically high80.0-94.0The [facility] HospitalComment on above:Performed By: #### CMP #### [facility] [address] [place] [address] Dr. Get SalinasOCYTE #NormalCleveland Clinic Fairview HospitalComment on above: Performed By: #### CMP #### [facility] [address] [place] [address] Dr. Get SalinasOCYTE %NormalThe [facility] HospitalComment on above: Performed By: #### CMP #### [facility] [address] [place] [address] Dr. Get Leyva#0.78 103/ulNormal0.30-0.80The [facility] HospitalComment on above:Performed By: #### CMP #### [facility] [address] [place] [address] Dr. Get Leyva%6.0 %Normal1.7-12.0The [facility] HospitalComment on above: Performed By: #### CMP #### [facility] [address] [address] [address] Get WhittenMPV8.7 fLCritically low9.5-13.5The [facility] HospitalComment on above:Performed By: #### CMP #### [facility] [address] [address] [address] Get CaryOCYTE #NormalThe [facility] HospitalComment on above:Performed By: #### CMP #### [facility] [address] [address] [address] Get CaryOCYTE %NormalThe [facility] HospitalComment on above:Performed By: #### CMP #### [facility] [address] [address] [address] Get WhittenNRBCNormalThMarietta Osteopathic ClinicComment on above:Performed By: #### CMP #### [facility] [address] [address] [address] Get WhittenPLT225 103/qmQrfhil001-618Krf [facility] HospitalComment on above: Performed By: #### CMP #### [facility] [address] [address] [address] Get WhittenRBC3.77 106/ulCritically low4.70-6.10The [facility] HospitalComment on above:Performed By: #### CMP #### [facility] [address] [address] [address] Get WhittenRDW12.7 %Zosqgf70.0-15.0The [facility] HospitalComment on above: Performed By: #### CMP #### [facility] [address] [address] [address] Get Kimble #10.53 103/ulCritically high1.40-6.50The [facility] Comment on above:Performed By: #### CMP #### [facility] [address] [address] [address] Get Kimble %81.0 %Critically high43.0-75.0The [facility] HospitalComment on above:Performed By: #### CMP #### [facility] [address] [place] [address] Dr. Get WhittenWBC13.0 103/ulCritically high4.0-11.0The [facility] HospitalComment on above:Performed By: #### CMP #### [facility] [address] [place] [address] Dr. Get Cintron [id number] [Mass/Vol]mg/LNormal<=1.0The [facility] HospitalComment on above:Performed By: #### BNP, T7, CMP, TSH #### [facility] [address] [place] [address] Dr. Get Richards 14(COMP METB)on 34-14-3760Bvliwth [Mass/Vol]3.3 g/dL Critically low3.4-5.0The [facility] HospitalComment on above:Performed By: #### BNP, T7, CMP, TSH #### [facility] [address] [place] [address] Dr. Get WhittenAlbumin/Globulin [Mass ratio]1.2 {ratio}NormalThe [facility] HospitalComment on above:Performed By: #### BNP, T7, CMP, TSH #### [facility] [address] [place] [address] Dr. Get Saba [Catalytic activity/Vol]48 U/XNksxxh18-972Bxg [facility] HospitalComment on above:Performed By: #### BNP, T7, CMP, TSH #### [facility] [address] [place] [address] Dr. Get Pichardo [Catalytic activity/Vol]130 U/LCritically dviw41-60Fds [facility] HospitalComment on above:Performed By: #### BNP, T7, CMP, TSH #### [facility] [address] [place] [address] Dr. Get Crow gap [Moles/Vol]11.9 mmol/LNormalThe [facility] on above:Performed By: #### BNP, T7, CMP, TSH #### [facility] [address] [place] [address] Dr. Yilan ChangAST [Catalytic activity/Vol]50 U/LCritically lnpp82-10Agt [facility] HospitalComment on above:Performed By: #### BNP, T7, CMP, TSH #### [facility] [address] [address] [address] Get WhittenBilirubin [Mass/Vol]0.5 mg/dLNormal0.2-1.0The [facility] Comment on above:Performed By: #### BNP, T7, CMP, TSH #### [facility] [address] [place] [address] Dr. Get WhittenCalcium [Mass/Vol]7.9 mg/dLCritically low8.5-10.1The [facility] HospitalComment on above:Performed By: #### BNP, T7, CMP, TSH #### [facility] [address] [place] [address] Dr. Get WhittenChloride [Moles/Vol]99 mmol/VHyojsb49-727Lwb [facility] Comment on above:Performed By: #### BNP, T7, CMP, TSH #### [facility] [address] [place] [address] Dr. Get WhittenCO2 [Moles/Vol]18.4 mmol/LCritically low21.0-32.0The [facility] HospitalComment on above:Performed By: #### BNP, T7, CMP, TSH #### [facility] [address] [place] [address] Dr. Get WhittenCreatinine [Mass/Vol]0.96 mg/dLNormal0.70-1.30The [facility] HospitalComment on above:Performed By: #### BNP, T7, CMP, TSH #### [facility] [address] [place] [address] Dr. Get PaytonGFR-AF ANGOLAN>60Normal>=60The [facility] HospitalComment on above:Performed By: #### BNP, T7, CMP, TSH #### [facility] [address] [place] [address] Dr. Get PaytonGFR-NON AF ANGOLAN>60Normal>=60The [facility] HospitalComment on above:Performed By: #### BNP, T7, CMP, TSH #### [facility] [address] [address] [address] Get WhittenGlobulin (S) [Mass/Vol]2.8 g/dLNoMcCullough-Hyde Memorial HospitalCommymichigan medical center on above:Performed By: #### BNP, T7, CMP, TSH #### [facility] [address] [address] [address] Get WhittenGlucose [Mass/Vol]166 mg/dLCritically bgkb09-209Miz [facility] on above:Performed By: #### BNP, T7, CMP, TSH #### [facility] [address] [place] [address] Dr. Get WhittenPotassium [Moles/Vol]3.3 mmol/LCritically low3.5-5.1The [facility] on above:Performed By: #### BNP, T7, CMP, TSH #### [facility] [address] [place] [address] Dr. Get WhittenProtein [Mass/Vol]6.1 g/dLCritically low6.4-8.2The [facility] on above:Performed By: #### BNP, T7, CMP, TSH #### [facility] [address] [place] [address] Dr. Get WhittenSodium [Moles/Vol]126 mmol/LCritically fmq400-943Pll [facility] on above:Performed By: #### BNP, T7, CMP, TSH #### [facility] [address] [place] [address] Dr. Get WhittenUrea nitrogen [Mass/Vol]8.0 mg/dLNormal7.0-18.0The [facility] on above:Performed By: #### BNP, T7, CMP, TSH #### [facility] [address] [place] [address] Dr. Get WhittenUrea nitrogen/Creatinine [Mass ratio]8.3 mg/mgNoMcCullough-Hyde Memorial HospitalCommymichigan medical center on above:Performed By: #### BNP, T7, CMP, TSH #### [facility] [address] [place] [address] Dr. Get Dawson 84-89-3324Oqtdhqyhivr peptide B (Bld) [Mass/Vol]274.0 pg/mL Normal<=900.0The [facility] HospitalComment on above:Performed By: #### CMP, HSTROPN, BNP #### [facility] [address] [place] [address] Dr. Get Crockett ANA 3-6on 12-34-8881VW [Catalytic activity/Vol]48 U/L Zcdccx98-285Mmf [facility] HospitalComment on above:Performed By: #### BNP, T7, CMP, TSH #### [facility] [address] [place] [address] Dr. Get Melara.MB [Mass/Vol]1.62 ng/mLNormal<=3.60[facility] Comment on above:Performed By: #### BNP, T7, CMP, TSH #### [facility] [address] [place] [address] Dr. Get WhittenHSTROP15.7 pg/mLNormal4.0-76.1The [facility] HospitalComment on above:Result Comment: CUT-OFF POINTS HAVE BEEN ESTABLISHED BASED ON THE FOURTH UNIVERSAL DEFINITIONS OF MYOCARDIAL INFARCTION. THE UPPER REFERENCE LIMIT (URL) OF TROPONIN, DEFINED THE 99TH PERCENTILE OF cTnI DISTRIBUTION IN A REFERENCE POPULATION, HAS BEEN CONFIRMED THE DECISION THRESHOLD FOR NC DIAGNOSIS.Performed By: #### BNP, T7, CMP, TSH #### [facility] [address] [place] [address] Dr. Get Meyer AUTO DIFFon [id number] #0.1 103/ulNormal0.0-0.1The [facility] HospitalComment on above:Performed By: #### CMP #### [facility] [address] [place] [address] Dr. Get WhittenBasophils/100 WBC (Bld)0.8 %Normal0.2-2.0[facility] Comment on above:Performed By: #### CMP #### [facility] [address] [place] [address] Dr. Get Babcock #0.6 103/ulNormal0.0-0.7The [facility] HospitalComment on above: Performed By: #### CMP #### [facility] [address] [place] [address] Dr. Get Paytonosinophils/100 WBC (Bld)5.2 %Normal0.9-7.0The [facility] Comment on above:Performed By: #### CMP #### [facility] [address] [place] [address] Dr. Get Paytonrythrocyte distribution width (RBC) [Ratio]12.7 %Wzqnop68.0-15.0 The [facility] HospitalComment on above:Performed By: #### CMP #### [facility] [address] [place] [address] Dr. Get WhittenHematocrit (Bld) [Volume fraction]41.7 %Critically low42.0-54.0 The [facility] HospitalComment on above:Performed By: #### CMP #### [facility] [address] [place] [address] Dr. Get WhittenHemoglobin (Bld) [Mass/Vol]14.9 g/xOMtotrv08.0-18.0The [facility] HospitalComment on above:Performed By: #### CMP #### [facility] [address] [place] [address] Dr. Get Sanford #0.48 10e3/ulCritically high0.00-0.03The [facility] Comment on above:Performed By: #### CMP #### [facility] [address] [place] [address] Dr. Get Sanford %4.1 %Critically high0.0-0.5The [facility] HospitalComment on above:Performed By: #### CMP #### [facility] [address] [place] [address] Dr. Get GrimesH #1.4 103/ulNormal1.2-3.8The [facility] HospitalComment on above:Performed By: #### CMP #### [facility] [address] [place] [address] Dr. Get Hargrovemphocytes/100 WBC (Bld)11.9 %Critically low20.5-60.0The [facility] Hospitalment on above:Performed By: #### CMP #### [facility] [address] [place] [address] Dr. Get HeadUAL DIFF REQNONormalThe [facility] HospitalComment on above: Performed By: #### CMP #### [facility] [address] [place] [address] Dr. Get Fried (RBC) [Entitic mass]36.8 pgCritically high25.9-34.0The [facility] HospitalComment on above:Performed By: #### CMP #### [facility] [address] [place] [address] Dr. Get Fried (RBC) [Mass/Vol]35.7 g/dLCritically high29.9-35.2The [facility] HospitalComment on above:Performed By: #### CMP #### [facility] [address] [place] [address] Dr. Get FriedV (RBC) [Entitic vol]103.0 fLCritically high80.0-94.0The [facility] HospitalComment on above:Performed By: #### CMP #### [facility] [address] [place] [address] Dr. Get Bill #0.5 103/ulNormal0.3-0.8The [facility] HospitalComment on above:Performed By: #### CMP #### [facility] [address] [place] [address] Dr. Get Lockettocytes/100 WBC (Bld)4.3 %Normal1.7-12.0[facility] Comment on above:Performed By: #### CMP #### [facility] [address] [place] [address] Dr. Get Falcon #8.6 103/ulCritically high1.4-6.5The [facility] Comment on above:Performed By: #### CMP #### [facility] [address] [address] [address] Get Andersonutrophils/100 WBC (Bld)73.7 %Fchfet29.0-75.0The [facility] HospitalComment on above:Performed By: #### CMP #### [facility] [address] [address] [address] Get Hanleylet mean volume (Bld) [Entitic vol]9.0 fLCritically low 9.5-13.5The [facility] HospitalComment on above:Performed By: #### CMP #### [facility] [address] [address] [address] Get WhittenPLT244 103/agCvrqte712-536Nzq [facility] HospitalComment on above: Performed By: #### CMP #### [facility] [address] [place] [address] Dr. Get WhittenRBC4.05 106/ulCritically low4.70-6.10The [facility] HospitalComment on above:Performed By: #### CMP #### [facility] [address] [address] [address] Get WhittenWBC11.7 103/ulCritically high4.0-11.0The [facility] HospitalComment on above:Performed By: #### CMP #### [facility] [address] [place] [address] Dr. Get WhittenCRJuvencio 19-61-4864VJI1.3 mg/dLNormal<=1.0The [facility] Comment on above:Performed By: #### CMP, HSTROPN, BNP #### [facility] [address] [address] [address] Get WhittenCULTCARROLL SPUTUMon 64-41-1328OTPILDB SPUTUMCulture Observations: METHICILLIN RESISTANT STAPH AUREUS ISOLATED. [...] <=10 S F Oxacillin >=4 R FNormalThe [facility] HospitalComment on above:Performed By: #### BNP, T7, CMP, TSH #### [facility] [address] [address] [address] Get Macias LIMITED STUDYon [id number] LIMITED STUDYPatient: REHAN TREJO Exam Date: 03/30/2022 : 1965 Gender:M Ordering : DR PEE LAKHANI . Admission #: [id number] Family : Order #: [id number] CLICK HERE TO VIEW EXAM ECHOCARDIOGRAM REPORT [...] by: Arik Dominguez M.D. on 03/31/2022 at 19:42[facility] LimaPROF 14(COMP METB)on 73-31-5089Vmhrnrm [Mass/Vol]3.5 g/dLNormal3.4-5.0 [facility] HospitalComment on above:Performed By: #### CMP, HSTROPN, BNP #### [facility] [address] [place] [address] Dr. Get WhittenAlbumin/Globulin [Mass ratio]1.2 {ratio}NormalCleveland Clinic Fairview HospitalComment on above:Performed By: #### CMP, HSTROPN, BNP #### [facility] [address] [place] [address] Dr. Get Saba [Catalytic activity/Vol]58 U/IKtifrj54-833RatCleveland Clinic Fairview HospitalComment on above:Performed By: #### CMP, HSTROPN, BNP #### [facility] [address] [place] [address] Dr. eGt Pichardo [Catalytic activity/Vol]108 U/LCritically head42-45Uaw [facility] HospitalComment on above:Performed By: #### CMP, HSTROPN, BNP #### [facility] [address] [place] [address] Dr. Get Crow gap [Moles/Vol]12.6 mmol/LNormalThe [facility] Comment on above:Performed By: #### CMP, HSTROPN, BNP #### [facility] [address] [place] [address] Dr. Yilan ChangAST [Catalytic activity/Vol]33 U/VJsylgx26-01Pfz [facility] HospitalComment on above:Performed By: #### CMP, HSTROPN, BNP #### [facility] [address] [address] [address] Get WhittenBilirubin [Mass/Vol]0.6 mg/dLNormal0.2-1.0The [facility] Comment on above:Performed By: #### CMP, HSTROPN, BNP #### [facility] [address] [address] [address] Get WhittenCalcium [Mass/Vol]8.0 mg/dLCritically low8.5-10.1The [facility] HospitalComment on above:Performed By: #### CMP, HSTROPN, BNP #### [facility] [address] [place] [address] Dr. Get WhittenChloride [Moles/Vol]99 mmol/PUwqfkz22-136Jdx [facility] Comment on above:Performed By: #### CMP, HSTROPN, BNP #### [facility] [address] [place] [address] Dr. Get WhittenCO2 [Moles/Vol]22.0 mmol/FOserij61.0-32.0The [facility] Comment on above:Performed By: #### CMP, HSTROPN, BNP #### [facility] [address] [place] [address] Dr. eGt WhittenCreatinine [Mass/Vol]1.12 mg/dLNormal0.70-1.30The [facility] HospitalComment on above:Performed By: #### CMP, HSTROPN, BNP #### [facility] [address] [address] [address] Get PaytonGFR-AF ANGOLAN>60Normal>=60The [facility] HospitalComment on above:Performed By: #### CMP, HSTROPN, BNP #### [facility] [address] [place] [address] Dr. Get PaytonGFR-NON AF ANGOLAN>60Normal>=60The [facility] HospitalComment on above:Performed By: #### CMP, HSTROPN, BNP #### [facility] [address] [address] [address] Get WhittenGlobulin (S) [Mass/Vol]3.0 g/dLNormEast Liverpool City HospitalComment on above:Performed By: #### CMP, HSTROPN, BNP #### [facility] [address] [address] [address] Get WhittenGlucose [Mass/Vol]135 mg/dLCritically fwpc19-865Oay [facility] HospitalCommymichigan medical center on above:Performed By: #### CMP, HSTROPN, BNP #### [facility] [address] [place] [address] Dr. Get WhittenPotassium [Moles/Vol]3.6 mmol/LNormal3.5-5.1The [facility] Comment on above:Performed By: #### CMP, HSTROPN, BNP #### [facility] [address] [address] [address] Get WhittenProtein [Mass/Vol]6.5 g/dLNormal6.4-8.2The [facility] Comment on above:Performed By: #### CMP, HSTROPN, BNP #### [facility] [address] [place] [address] Dr. Get WhittenSodium [Moles/Vol]130 mmol/LCritically gby286-007[facility] on above:Performed By: #### CMP, HSTROPN, BNP #### [facility] [address] [place] [address] Dr. Get WhittenUrea nitrogen [Mass/Vol]7.0 mg/dLNormal7.0-18.0The [facility] HospitalComment on above:Performed By: #### CMP, HSTROPN, BNP #### [facility] [address] [place] [address] Dr. Get WhittenUrea nitrogen/Creatinine [Mass ratio]6.2 mg/mgNoMcCullough-Hyde Memorial HospitalComment on above:Performed By: #### CMP, HSTROPN, BNP #### [facility] [address] [place] [address] Dr. Gte PEREZ 3-6on [id number] [Catalytic activity/Vol]51 U/L Tohfca36-945MjaCleveland Clinic Fairview HospitalComment on above:Performed By: #### CVDTBH #### [facility] [address] [place] [address] Dr. Get lOeaMB [Mass/Vol]1.89 ng/mLNormal<=3.60[facility] Comment on above:Performed By: #### CVDTBH #### [facility] [address] [place] [address] Dr. Get Mckay14.4 pg/mLNormal4.0-76.1The [facility] HospitalCommymichigan medical center on above:Result Comment: CUT-OFF POINTS HAVE BEEN ESTABLISHED BASED ON THE FOURTH UNIVERSAL DEFINITIONS OF MYOCARDIAL INFARCTION. THE UPPER REFERENCE LIMIT (URL) OF TROPONIN, DEFINED THE 99TH PERCENTILE OF cTnI DISTRIBUTION IN A REFERENCE POPULATION, HAS BEEN CONFIRMED THE DECISION THRESHOLD FOR NC DIAGNOSIS.Performed By: #### CVDTBH #### [facility] [address] [place] [address] Dr. Get PEREZ ADMITon [id number] [Catalytic activity/Vol]128 U/L Nqrbry90-890GodCleveland Clinic Fairview HospitalComment on above:Performed By: #### CMP, HSTROPN, BNP #### [facility] [address] [place] [address] Dr. Get Melara.MB [Mass/Vol]2.22 ng/mLNormal<=3.60[facility] Comment on above:Performed By: #### CMP, HSTROPN, BNP #### [facility] [address] [place] [address] Dr. Get Mckay11.2 pg/mLNormal4.0-76.1[facility] on above:Result Comment: CUT-OFF POINTS HAVE BEEN ESTABLISHED BASED ON THE FOURTH UNIVERSAL DEFINITIONS OF MYOCARDIAL INFARCTION. THE UPPER REFERENCE LIMIT (URL) OF TROPONIN, DEFINED THE 99TH PERCENTILE OF cTnI DISTRIBUTION IN A REFERENCE POPULATION, HAS BEEN CONFIRMED THE DECISION THRESHOLD FOR NC DIAGNOSIS.Performed By: #### CMP, HSTROPN, BNP #### [facility] [address] [place] [address] Dr. Get WhittenMYO40 ng/iHBpegsw38-92Kbo [facility] HospitalComment on above: Performed By: #### CMP, HSTROPN, BNP #### [facility] [address] [place] [address] Dr. Get Meyer AUTO DIFFon [id number] #0.1 103/ulNormal0.0-0.1The [facility] HospitalComment on above:Performed By: #### OSMOU #### [facility] [address] [place] [address] Dr. Get WhittenBasophils/100 WBC (Bld)0.4 %Normal0.2-2.0[facility] Comment on above:Performed By: #### OSMOU #### [facility] [address] [place] [address] Dr. eGt Babcock #0.0 103/ulNormal0.0-0.7The [facility] HospitalComment on above: Performed By: #### OSMOU #### [facility] [address] [place] [address] Dr. Get Paytonosinophils/100 WBC (Bld)0.1 %Critically low0.9-7.0The [facility] HospitalComment on above:Performed By: #### OSMOU #### [facility] [address] [place] [address] Dr. Get Paytonrythrocyte distribution width (RBC) [Ratio]12.8 %Psivpn32.0-15.0 The [facility] HospitalComment on above:Performed By: #### OSMOU #### [facility] [address] [place] [address] Dr. Get WhittenHematocrit (Bld) [Volume fraction]42.1 %Dnswuy28.0-54.0The [facility] HospitalComment on above:Performed By: #### OSMOU #### [facility] [address] [address] [address] Get WhittenHemoglobin (Bld) [Mass/Vol]15.3 g/hAYugyua15.0-18.0The [facility] HospitalComment on above:Performed By: #### OSMOU #### [facility] [address] [place] [address] Dr. Get Sanford #0.49 10e3/ulCritically high0.00-0.03The [facility] Comment on above:Performed By: #### OSMOU #### [facility] [address] [place] [address] Dr. Get Sanford %3.6 %Critically high0.0-0.5The [facility] HospitalComment on above:Performed By: #### OSMOU #### [facility] [address] [place] [address] Dr. Get Otoole #2.2 103/ulNormal1.2-3.8The [facility] HospitalComment on above:Performed By: #### OSMOU #### [facility] [address] [place] [address] Dr. Get Grimeshocytes/100 WBC (Bld)16.1 %Critically low20.5-60.0The [facility] HospitalComment on above:Performed By: #### OSMOU #### [facility] [address] [place] [address] Dr. Get HeadUAL DIFF REQNONormalThe [facility] HospitalComment on above: Performed By: #### OSMOU #### [facility] [address] [place] [address] Dr. Get Fried (RBC) [Entitic mass]36.3 pgCritically high25.9-34.0The [facility] HospitalComment on above:Performed By: #### OSMOU #### [facility] [address] [place] [address] Dr. Get Fried (RBC) [Mass/Vol]36.3 g/dLCritically high29.9-35.2The [facility] HospitalComment on above:Performed By: #### OSMOU #### [facility] [address] [address] [address] Get FriedV (RBC) [Entitic vol]100.0 fLCritically high80.0-94.0The [facility] HospitalComment on above:Performed By: #### OSMOU #### [facility] [address] [place] [address] Dr. Get Bill #1.1 103/ulCritically high0.3-0.8ThMari[facility] Comment on above:Performed By: #### OSMOU #### [facility] [address] [place] [address] Dr. Get Lockettocytes/100 WBC (Bld)8.3 %Normal1.7-12.0[facility] Comment on above:Performed By: #### OSMOU #### [facility] [address] [place] [address] Dr. Get Falcon #9.6 103/ulCritically high1.4-6.5ThMarietta [facility]opathic [facility] Comment on above:Performed By: #### OSMOU #### [facility] [address] [place] [address] Dr. Get Andersonutrophils/100 WBC (Bld)71.5 %Bwmzax51.0-75.0The [facility] HospitalComment on above:Performed By: #### OSMOU #### [facility] [address] [place] [address] Dr. Get Hanleylet mean volume (Bld) [Entitic vol]9.1 fLCritically low 9.5-13.5ThMarietta Osteopathic ClinicComment on above:Performed By: #### OSMOU #### [facility] [address] [place] [address] Dr. Get WhittenPLT228 103/isHdcirr678-887Azb [facility] HospitalComment on above: Performed By: #### OSMOU #### [facility] [address] [place] [address] Dr. Get WhittenRBC4.21 106/ulCritically low4.70-6.10ThMarietta Osteopathic ClinicComment on above:Performed By: #### OSMOU #### [facility] [address] [address] [address] Get WhittenWBC13.4 103/ulCritically high4.0-11.0The [facility] HospitalComment on above:Performed By: #### OSMOU #### [facility] [address] [address] [address] Get WhittenCovid-19 PCR ([facility])on [id number]-CoV-2 (COVID-19) RNA ASHLEE+probe Ql (Unsp spec)DetectedCritically abnormalNOT DETECTEDThe [facility] on above:Result Comment: This test is not yet approved or cleared by the [place] FDA. When there are no FDA-approved or cleared tests available, and other criteria are met, FDA can make tests available under an emergency access mechanism called an Emergency Use Authorization (EUA). The EUA for this test is supported by the [place] of Health and Human Service's declaration that [...] longer be used).Performed By: #### CVDTBH #### [facility] [address] [place] [address] Dr. Get WorkmanLITYon [id number] [Osmolality]257 mosm/kg Critically hho967-385Oyc [facility] Hospitalment on above:Performed By: #### CVDTBH #### [facility] [address] [id number] [address] Get Guevara URINEon 26-25-6800Zsltgrjjta, Vmfka380 mOsmol/kgNormal The [facility] HospitalComment on above:Result Comment: 24 hr : 300 - 900 Random: 50 - 1400 After 12hr fluid restriction: >850Performed By: #### OSMOU #### [facility] [address] [place] [address] Dr. Get Richards CHEM 8 (BAS METB)on [id number] gap [Moles/Vol]17.1 mmol/LNormalThe [facility] HospitalComment on above:Performed By: #### CMP, HSTROPN, BNP #### [facility] [address] [place] [address] Dr. Get WhittenCalcium [Mass/Vol]8.4 mg/dLCritically low8.5-10.1The [facility] HospitalComment on above:Performed By: #### CMP, HSTROPN, BNP #### [facility] [address] [place] [address] Dr. Get WhittenChloride [Moles/Vol]98 mmol/LUwhbad35-723Ass [facility] Comment on above:Performed By: #### CMP, HSTROPN, BNP #### [facility] [address] [place] [address] Dr. Get WhittenCO2 [Moles/Vol]18.1 mmol/LCritically low21.0-32.0The [facility] HospitalComment on above:Performed By: #### CMP, HSTROPN, BNP #### [facility] [address] [place] [address] Dr. Get WhittenCreatinine [Mass/Vol]0.98 mg/dLNormal0.70-1.30The [facility] HospitalComment on above:Performed By: #### CMP, HSTROPN, BNP #### [facility] [address] [place] [address] Dr. Get PaytonGFR-AF ANGOLAN>60Normal>=60The [facility] HospitalComment on above:Performed By: #### CMP, HSTROPN, BNP #### [facility] [address] [place] [address] Dr. Get PaytonGFR-NON AF ANGOLAN>60Normal>=60The [facility] HospitalComment on above:Performed By: #### CMP, HSTROPN, BNP #### [facility] [address] [place] [address] Dr. Get WhittenGlucose [Mass/Vol]94 mg/wMEkddij74-634Mqa [facility] Comment on above:Performed By: #### CMP, HSTROPN, BNP #### [facility] [address] [address] [address] Get WhittenPotassium [Moles/Vol]4.2 mmol/LNormal3.5-5.1The [facility] Comment on above:Performed By: #### CMP, HSTROPN, BNP #### [facility] [address] [address] [address] Get WhittenSodium [Moles/Vol]129 mmol/LCritically uuq485-743Hlu [facility] HospitalComment on above:Performed By: #### CMP, HSTROPN, BNP #### [facility] [address] [address] [address] Get WhittenUrea nitrogen [Mass/Vol]8.0 mg/dLNormal7.0-18.0The [facility] HospitalComment on above:Performed By: #### CMP, HSTROPN, BNP #### [facility] [address] [address] [address] Get De Jesus nitrogen/Creatinine [Mass ratio]8.2 mg/mgKindred Hospital LimaComment on above:Performed By: #### CMP, HSTROPN, BNP #### [facility] [address] [address] [address] Get WhittenXR CHEST 1 Von [id number] CHEST 1 VEXAM: XR CHEST 1 V [...] Electronically authenticated by: GARETH ROMERO Date: 2022-03-29 18:30[facility] LimaBNMercyhealth [facility] [id number] peptide B (Bld) [Mass/Vol]401.0 pg/mLNormal<=900.0The [facility] HospitalComment on above:Performed By: #### BNP, T7, CMP, TSH #### [facility] [address] [place] [address] Dr. Get Meyer W MANUAL DIFFon [id number] LYMPH #NormalThe [facility]age HospitalComment on above:Performed By: #### BNP, T7, CMP, TSH #### [facility] [address] [place] [address] Dr. Get EdouardYPICAL LYMPH %NormalThe [facility] HospitalComment on above: Performed By: #### BNP, T7, CMP, TSH #### [facility] [address] [place] [address] Dr. Get Day #0.3 103/ulNormal0.0-0.3The [facility] HospitalComment on above:Performed By: #### BNP, T7, CMP, TSH #### [facility] [address] [place] [address] Dr. Get Day %2 %Normal0-5The [facility] HospitalComment on above:Performed By: #### BNP, T7, CMP, TSH #### [facility] [address] [place] [address] Dr. Get Aceves #0.00 103/ulNormal0.00-0.10The [facility] HospitalComment on above:Performed By: #### BNP, T7, CMP, TSH #### [facility] [address] [place] [address] Dr. Get Aceves %0.0 %Critically low0.2-2.0The [facility] HospitalComment on above:Performed By: #### BNP, T7, CMP, TSH #### [facility] [address] [place] [address] Dr. Get Wing #NormalThe [facility] HospitalComment on above:Performed By: #### BNP, T7, CMP, TSH #### [facility] [address] [place] [address] Dr. Get Wing %NormalThe [facility] Hospitalment on above:Performed By: #### BNP, T7, CMP, TSH #### [facility] [address] [place] [address] Dr. Get WhittenCORRECTED WBCNormal4.0-11.0The [facility] on above: Performed By: #### BNP, T7, CMP, TSH #### [facility] [address] [place] [address] Dr. Get Kendrick #0.00 103/ulNormal0.00-0.70The [facility] HospitalComment on above:Performed By: #### BNP, T7, CMP, TSH #### [facility] [address] [place] [address] Dr. Get Kendrick%0.0 %Critically low0.9-7.0The [facility] HospitalComment on above:Performed By: #### BNP, T7, CMP, TSH #### [facility] [address] [place] [address] Dr. Get WhittenHCT36.3 %Critically low42.0-54.0The [facility] HospitalComment on above:Performed By: #### BNP, T7, CMP, TSH #### [facility] [address] [place] [address] Dr. Get WhittenHGB12.9 g/dlCritically low14.0-18.0The [facility] HospitalComment on above:Performed By: #### BNP, T7, CMP, TSH #### [facility] [address] [place] [address] Dr. Get [facility] HospitalComment on above: Performed By: #### BNP, T7, CMP, TSH #### [facility] [address] [place] [address] Dr. Get Villarreal #0.89 103/ulCritically low1.20-3.80The [facility] on above:Performed By: #### BNP, T7, CMP, TSH #### [facility] [address] [place] [address] Dr. Get Villarreal%7.0 %Critically low20.5-60.0The [facility] HospitalComment on above:Performed By: #### BNP, T7, CMP, TSH #### [facility] [address] [address] [address] Get FriedH36.5 pgCritically high25.9-34.0The [facility] HospitalComment on above:Performed By: #### BNP, T7, CMP, TSH #### [facility] [address] [address] [address] Get FriedHC35.5 g/dlCritically high29.9-35.2The [facility] HospitalComment on above:Performed By: #### BNP, T7, CMP, TSH #### [facility] [address] [place] [address] Dr. Get FriedV102.8 fLCritically high80.0-94.0The [facility] HospitalComment on above:Performed By: #### BNP, T7, CMP, TSH #### [facility] [address] [place] [address] Dr. Get SalinasOCYTE #NormalThe [facility] HospitalComment on above: Performed By: #### BNP, T7, CMP, TSH #### [facility] [address] [place] [address] Dr. Get SalinasOCYTE %NormalThe [facility] HospitalComment on above: Performed By: #### BNP, T7, CMP, TSH #### [facility] [address] [place] [address] Dr. Get Leyva#1.02 103/ulCritically high0.30-0.80The [facility] Comment on above:Performed By: #### BNP, T7, CMP, TSH #### [facility] [address] [place] [address] Dr. Get Leyva%8.0 %Normal1.7-12.0The [facility] HospitalComment on above: Performed By: #### BNP, T7, CMP, TSH #### [facility] [address] [place] [address] Dr. Get Carlisle9.1 fLCritically low9.5-13.5The [facility] HospitalComment on above:Performed By: #### BNP, T7, CMP, TSH #### [facility] [address] [address] [address] Get CaryOCYTE #NormalThe [facility] HospitalComment on above:Performed By: #### BNP, T7, CMP, TSH #### [facility] [address] [address] [address] Get CaryOCYTE %NormalCleveland Clinic Fairview HospitalComment on above:Performed By: #### BNP, T7, CMP, TSH #### [facility] [address] [place] [address] Dr. Get ConnBCNormalThe [facility] HospitalComment on above:Performed By: #### BNP, T7, CMP, TSH #### [facility] [address] [place] [address] Dr. Get WhittenPLT181 103/qpLbnumi117-246Umu [facility] HospitalComment on above: Performed By: #### BNP, T7, CMP, TSH #### [facility] [address] [place] [address] Dr. Get WhittenRBC3.53 106/ulCritically low4.70-6.10The [facility] Hospitalment on above:Performed By: #### BNP, T7, CMP, TSH #### [facility] [address] [address] [address] Get RamirezW12.7 %Pycrzv47.0-15.0The [facility] HospitalComment on above: Performed By: #### BNP, T7, CMP, TSH #### [facility] [address] [place] [address] Dr. Get Kimble #10.54 103/ulCritically high1.40-6.50The [facility] on above:Performed By: #### BNP, T7, CMP, TSH #### [facility] [address] [place] [address] Dr. Get Kimble %83.0 %Critically high43.0-75.0The [facility] Hospitalment on above:Performed By: #### BNP, T7, CMP, TSH #### [facility] [address] [address] [address] Get WhittenWBC12.7 103/ulCritically high4.0-11.0The [facility] Hospitalment on above:Performed By: #### BNP, T7, CMP, TSH #### [facility] [address] [place] [address] Dr. Get Richards 14(COMP METB)on [id number] [Mass/Vol]3.0 g/dL Critically low3.4-5.0The [facility] Hospitalment on above:Performed By: #### BNP, T7, CMP, TSH #### [facility] [address] [place] [address] Dr. Get WhittenAlbumin/Globulin [Mass ratio]1.2 {ratio}NormalThe [facility] HospitalComment on above:Performed By: #### BNP, T7, CMP, TSH #### [facility] [address] [place] [address] Dr. Get Saba [Catalytic activity/Vol]39 U/LCritically hte56-225Zwn [facility] Hospitalment on above:Performed By: #### BNP, T7, CMP, TSH #### [facility] [address] [place] [address] Dr. Get Pichardo [Catalytic activity/Vol]94 U/LCritically gzzj29-41Vlz [facility] Hospitalment on above:Performed By: #### BNP, T7, CMP, TSH #### [facility] [address] [place] [address] Dr. Get Crow gap [Moles/Vol]11.4 mmol/LNormalThe [facility] on above:Performed By: #### BNP, T7, CMP, TSH #### [facility] [address] [place] [address] Dr. Get WhittenAST [Catalytic activity/Vol]37 U/MCkawfx81-81Ggu [facility] Hospitalment on above:Performed By: #### BNP, T7, CMP, TSH #### [facility] [address] [place] [address] Dr. Get WhittenBilirubin [Mass/Vol]0.4 mg/dLNormal0.2-1.0[facility] Comment on above:Performed By: #### BNP, T7, CMP, TSH #### [facility] [address] [place] [address] Dr. Get WhittenCalcium [Mass/Vol]7.9 mg/dLCritically low8.5-10.1The [facility] HospitalComment on above:Performed By: #### BNP, T7, CMP, TSH #### [facility] [address] [place] [address] Dr. Get WhittenChloride [Moles/Vol]102 mmol/JLzjirv36-252Wno [facility] Comment on above:Performed By: #### BNP, T7, CMP, TSH #### [facility] [address] [place] [address] Dr. Get WhittenCO2 [Moles/Vol]21.0 mmol/TTvgbpo82.0-32.0[facility] Comment on above:Performed By: #### BNP, T7, CMP, TSH #### [facility] [address] [place] [address] Dr. Get WhittenCreatinine [Mass/Vol]1.07 mg/dLNormal0.70-1.30The [facility] HospitalComment on above:Performed By: #### BNP, T7, CMP, TSH #### [facility] [address] [place] [address] Dr. Get PaytonGFR-AF ANGOLAN>86Normal>=60The [facility] HospitalComment on above:Performed By: #### BNP, T7, CMP, TSH #### [facility] [address] [place] [address] Dr. Get PaytonGFR-NON AF ANGOLAN>60Normal>=60The [facility] HospitalComment on above:Performed By: #### BNP, T7, CMP, TSH #### [facility] [address] [place] [address] Dr. Get WhittenGlobulin (S) [Mass/Vol]2.6 g/dLNormEast Liverpool City HospitalComment on above:Performed By: #### BNP, T7, CMP, TSH #### [facility] [address] [address] [address] Get WhittenGlucose [Mass/Vol]132 mg/dLCritically zcbz83-937Fcb [facility] HospitalComment on above:Performed By: #### BNP, T7, CMP, TSH #### [facility] [address] [address] [address] Get WhittenPotassium [Moles/Vol]3.4 mmol/LCritically low3.5-5.1The [facility] HospitalComment on above:Performed By: #### BNP, T7, CMP, TSH #### [facility] [address] [address] [address] Get WhittenProtein [Mass/Vol]5.6 g/dLCritically low6.4-8.2The [facility] HospitalComment on above:Performed By: #### BNP, T7, CMP, TSH #### [facility] [address] [address] [address] Get WhittenSodium [Moles/Vol]131 mmol/LCritically bzy067-028Hqg [facility] HospitalCommymichigan [facility] on above:Performed By: #### BNP, T7, CMP, TSH #### [facility] [address] [address] [address] Get WhittneUrea nitrogen [Mass/Vol]16.0 mg/dLNormal7.0-18.0The [facility] on above:Performed By: #### BNP, T7, CMP, TSH #### [facility] [address] [place] [address] Dr. Get WhittenUrea nitrogen/Creatinine [Mass ratio]15.0 mg/mgNoMcCullough-Hyde Memorial HospitalCommymichigan medical center on above:Performed By: #### BNP, T7, CMP, TSH #### [facility] [address] [place] [address] Dr. Get WhittenT3, TOTAL (TRIIODOTHYRONINE)on [id number], TOTAL<20Critically zso73-437Rgs [facility] HospitalComment on above:Performed By: #### CMP, HSTROPN, BNP #### [facility] [address] [place] [address] Dr. Get Vences4 LABCORPon [id number] [Mass/Vol]0.7 ug/dLInvalid Interpretation Code4.5-12.0The [facility] on above:Performed By: #### CVDTBH #### [facility] [address] [place] [address] Dr. Get Dawson [id number] peptide B (Bld) [Mass/Vol]340.0 pg/mL Normal<=900.0The [facility] on above:Performed By: #### BNP, T7, CMP, TSH #### [facility] [address] [place] [address] Dr. Gte Meyer AUTO DIFFon [id number] #0.0 103/ulNormal0.0-0.1The [facility] on above:Performed By: #### CMP, HSTROPN, BNP #### [facility] [address] [place] [address] Dr. Get WhittenBasophils/100 WBC (Bld)0.1 %Critically low0.2-2.0The [facility] on above:Performed By: #### CMP, HSTROPN, BNP #### [facility] [address] [place] [address] Dr. Get Babcock #0.0 103/ulNormal0.0-0.7The [facility] on above: Performed By: #### CMP, HSTROPN, BNP #### [facility] [address] [place] [address] Dr. Get Paytonosinophils/100 WBC (Bld)0.1 %Critically low0.9-7.0The [facility] Hospitalment on above:Performed By: #### CMP, HSTROPN, BNP #### [facility] [address] [place] [address] Dr. Get Paytonrythrocyte distribution width (RBC) [Ratio]12.7 %Wtkmjv00.0-15.0 The [facility] HospitalComment on above:Performed By: #### CMP, HSTROPN, BNP #### [facility] [address] [place] [address] Dr. Get WhittenHematocrit (Bld) [Volume fraction]38.7 %Critically low42.0-54.0 The [facility] HospitalComment on above:Performed By: #### CMP, HSTROPN, BNP #### [facility] [address] [place] [address] Dr. Get WhittenHemoglobin (Bld) [Mass/Vol]13.6 g/dLCritically low14.0-18.0The [facility] HospitalComment on above:Performed By: #### CMP, HSTROPN, BNP #### [facility] [address] [place] [address] Dr. Get Sanford #1.95 10e3/ulCritically high0.00-0.03The [facility] Comment on above:Performed By: #### CMP, HSTROPN, BNP #### [facility] [address] [place] [address] Dr. Get Sanford %16.0 %Critically high0.0-0.5The [facility] HospitalComment on above:Performed By: #### CMP, HSTROPN, BNP #### [facility] [address] [place] [address] Dr. Get Otoole #1.7 103/ulNormal1.2-3.8The [facility] HospitalComment on above:Performed By: #### CMP, HSTROPN, BNP #### [facility] [address] [place] [address] Dr. Get Hargrovemphocytes/100 WBC (Bld)13.8 %Critically low20.5-60.0The [facility] HospitalComment on above:Performed By: #### CMP, HSTROPN, BNP #### [facility] [address] [place] [address] Dr. Get HeadUAL DIFF REQNONormalThe [facility] HospitalComment on above: Performed By: #### CMP, HSTROPN, BNP #### [facility] [address] [place] [address] Dr. Get Fried (RBC) [Entitic mass]36.2 pgCritically high25.9-34.0The [facility] HospitalComment on above:Performed By: #### CMP, HSTROPN, BNP #### [facility] [address] [place] [address] Dr. Get Fried (RBC) [Mass/Vol]35.1 g/rRSlkhkx74.9-35.2The [facility] HospitalComment on above:Performed By: #### CMP, HSTROPN, BNP #### [facility] [address] [place] [address] Dr. Get Fried (RBC) [Entitic vol]102.9 fLCritically high80.0-94.0The [facility] HospitalComment on above:Performed By: #### CMP, HSTROPN, BNP #### [facility] [address] [place] [address] Dr. Get Bill #0.4 103/ulNormal0.3-0.8The [facility] HospitalComment on above:Performed By: #### CMP, HSTROPN, BNP #### [facility] [address] [place] [address] Dr. Get Lockettocytes/100 WBC (Bld)3.3 %Normal1.7-12.0[facility] Comment on above:Performed By: #### CMP, HSTROPN, BNP #### [facility] [address] [place] [address] Dr. Get Falcon #8.2 103/ulCritically high1.4-6.5The [facility] Comment on above:Performed By: #### CMP, HSTROPN, BNP #### [facility] [address] [place] [address] Dr. Get Andersonutrophils/100 WBC (Bld)66.7 %Zimmbx14.0-75.0The [facility] HospitalComment on above:Performed By: #### CMP, HSTROPN, BNP #### [facility] [address] [place] [address] Dr. Get Hanleylet mean volume (Bld) [Entitic vol]9.2 fLCritically low 9.5-13.5The [facility] HospitalComment on above:Performed By: #### CMP, HSTROPN, BNP #### [facility] [address] [place] [address] Dr. Get WhittenPLT167 103/exDmkcsl675-868Fdc [facility] Hospitalment on above: Performed By: #### CMP, HSTROPN, BNP #### [facility] [address] [place] [address] Dr. Get WhittenRBC3.76 106/ulCritically low4.70-6.10The [facility] HospitalComment on above:Performed By: #### CMP, HSTROPN, BNP #### [facility] [address] [place] [address] Dr. Get WhittenWBC12.2 103/ulCritically high4.0-11.0The [facility] Hospitalment on above:Performed By: #### CMP, HSTROPN, BNP #### [facility] [address] [place] [address] Dr. Get Richards 14(COMP METB)on 35-18-1353Pczkebo [Mass/Vol]3.1 g/dL Critically low3.4-5.0The [facility] Hospitalment on above:Performed By: #### BNP, T7, CMP, TSH #### [facility] [address] [place] [address] Dr. Get WhittenAlbumin/Globulin [Mass ratio]1.1 {ratio}NormalThe [facility] Hospitalment on above:Performed By: #### BNP, T7, CMP, TSH #### [facility] [address] [place] [address] Dr. Get MartinezP [Catalytic activity/Vol]44 U/LCritically hyt13-595Cpm [facility] HospitalComment on above:Performed By: #### BNP, T7, CMP, TSH #### [facility] [address] [address] [address] Get MartinezT [Catalytic activity/Vol]87 U/LCritically cmko83-37Ftv [facility] HospitalComment on above:Performed By: #### BNP, T7, CMP, TSH #### [facility] [address] [address] [address] Get Crow gap [Moles/Vol]12.6 mmol/LNormalThe [facility] Comment on above:Performed By: #### BNP, T7, CMP, TSH #### [facility] [address] [address] [address] Get WhittenAST [Catalytic activity/Vol]38 U/LCritically xgif49-13Xwi [facility] HospitalComment on above:Performed By: #### BNP, T7, CMP, TSH #### [facility] [address] [address] [address] Get WhittenBilirubin [Mass/Vol]0.4 mg/dLNormal0.2-1.0The [facility] Comment on above:Performed By: #### BNP, T7, CMP, TSH #### [facility] [address] [place] [address] Dr. Get WhittenCalcium [Mass/Vol]7.7 mg/dLCritically low8.5-10.1The [facility] HospitalComment on above:Performed By: #### BNP, T7, CMP, TSH #### [facility] [address] [address] [address] Get WhittenChloride [Moles/Vol]97 mmol/LCritically nkl66-365Ioe [facility] HospitalComment on above:Performed By: #### BNP, T7, CMP, TSH #### [facility] [address] [address] [address] Get WhittenCO2 [Moles/Vol]22.1 mmol/AVxiasd78.0-32.0The [facility] Comment on above:Performed By: #### BNP, T7, CMP, TSH #### [facility] [address] [place] [address] Dr. Get WhittenCreatinine [Mass/Vol]1.17 mg/dLNormal0.70-1.30The [facility] HospitalComment on above:Performed By: #### BNP, T7, CMP, TSH #### [facility] [address] [place] [address] Dr. Get PaytonGFR-AF ANGOLAN>60Normal>=60The [facility] HospitalComment on above:Performed By: #### BNP, T7, CMP, TSH #### [facility] [address] [place] [address] Dr. Get PaytonGFR-NON AF ANGOLAN>60Normal>=60The [facility] HospitalComment on above:Performed By: #### BNP, T7, CMP, TSH #### [facility] [address] [place] [address] Dr. Get WhittenGlobulin (S) [Mass/Vol]2.7 g/dLNormalThe [facility] HospitalComment on above:Performed By: #### BNP, T7, CMP, TSH #### [facility] [address] [place] [address] Dr. Get WhittenGlucose [Mass/Vol]165 mg/dLCritically aoqu29-382Vto [facility] HospitalComment on above:Performed By: #### BNP, T7, CMP, TSH #### [facility] [address] [place] [address] Dr. Get WhittenPotassium [Moles/Vol]3.7 mmol/LNormal3.5-5.1The [facility] Comment on above:Performed By: #### BNP, T7, CMP, TSH #### [facility] [address] [place] [address] Dr. Get WhittenProtein [Mass/Vol]5.8 g/dLCritically low6.4-8.2The [facility] HospitalComment on above:Performed By: #### BNP, T7, CMP, TSH #### [facility] [address] [address] [address] Get Turner [Moles/Vol]128 mmol/LCritically wqc375-663Viy [facility] HospitalComment on above:Performed By: #### BNP, T7, CMP, TSH #### [facility] [address] [place] [address] Dr. Get De Jesus nitrogen [Mass/Vol]17.0 mg/dLNormal7.0-18.0The [facility] HospitalComment on above:Performed By: #### BNP, T7, CMP, TSH #### [facility] [address] [place] [address] Dr. Get De Jesus nitrogen/Creatinine [Mass ratio]14.5 mg/mgNormalThe [facility] HospitalComment on above:Performed By: #### BNP, T7, CMP, TSH #### [facility] [address] [place] [address] Dr. Get Turner RANDOM URINEon 41-34-2280Hfxoxz (U) [Moles/Vol]6 mmol/L Critically nva66-87Kte [facility] HospitalComment on above:Performed By: #### BNP, T7, CMP, TSH #### [facility] [address] [place] [address] Dr. Get Dawson 09-12-9009Xvflimhwrqg peptide B (Bld) [Mass/Vol]472.0 pg/mL Normal<=900.0The [facility] HospitalComment on above:Performed By: #### CMP, HSTROPN, BNP #### [facility] [address] [place] [address] Dr. Get Crockett ANA 3-6on [id number] [Catalytic activity/Vol]53 U/L Gqlhay79-247Qex [facility] HospitalComment on above:Performed By: #### CVDTBH #### [facility] [address] [place] [address] Dr. Get Melara.MB [Mass/Vol]1.61 ng/mLNormal<=3.60The [facility] Comment on above:Performed By: #### CVDTBH #### [facility] [address] [place] [address] Dr. Get Mckay20.2 pg/mLNormal4.0-76.1The [facility] on above:Result Comment: CUT-OFF POINTS HAVE BEEN ESTABLISHED BASED ON THE FOURTH UNIVERSAL DEFINITIONS OF MYOCARDIAL INFARCTION. THE UPPER REFERENCE LIMIT (URL) OF TROPONIN, DEFINED THE 99TH PERCENTILE OF cTnI DISTRIBUTION IN A REFERENCE POPULATION, HAS BEEN CONFIRMED THE DECISION THRESHOLD FOR NC DIAGNOSIS.Performed By: #### CVDTBH #### [facility] [address] [place] [address] Dr. Get Melara [Catalytic activity/Vol]40 U/PLhhiaz68-144Bto [facility] on above:Performed By: #### BNP, T7, CMP, TSH #### [facility] [address] [place] [address] Dr. Get Melara.MB [Mass/Vol]1.53 ng/mLNormal<=3.60The [facility] Comment on above:Performed By: #### BNP, T7, CMP, TSH #### [facility] [address] [place] [address] Dr. Get Mckay23.6 pg/mLNormal4.0-76.1The [facility] on above:Result Comment: CUT-OFF POINTS HAVE BEEN ESTABLISHED BASED ON THE FOURTH UNIVERSAL DEFINITIONS OF MYOCARDIAL INFARCTION. THE UPPER REFERENCE LIMIT (URL) OF TROPONIN, DEFINED THE 99TH PERCENTILE OF cTnI DISTRIBUTION IN A REFERENCE POPULATION, HAS BEEN CONFIRMED THE DECISION THRESHOLD FOR NC DIAGNOSIS.Performed By: #### BNP, T7, CMP, TSH #### [facility] [address] [place] [address] Dr. Get Meyer W MANUAL DIFFon [id number] LYMPH #NormalThe [facility] on above:Performed By: #### CMP, HSTROPN, BNP #### [facility] [address] [place] [address] Dr. Get WhittenATYPICAL LYMPH %NormalThe [facility] HospitalComment on above: Performed By: #### CMP, HSTROPN, BNP #### [facility] [address] [address] [address] Get Day #0.5 103/ulCritically high0.0-0.3The [facility] Comment on above:Performed By: #### CMP, HSTROPN, BNP #### [facility] [address] [address] [address] Get Day %4 %Normal0-5The [facility] HospitalComment on above:Performed By: #### CMP, HSTROPN, BNP #### [facility] [address] [place] [address] Dr. Get Aceves #0.00 103/ulNormal0.00-0.10The [facility] HospitalComment on above:Performed By: #### CMP, HSTROPN, BNP #### [facility] [address] [place] [address] Dr. Get Aceves %0.0 %Critically low0.2-2.0The [facility] on above:Performed By: #### CMP, HSTROPN, BNP #### [facility] [address] [place] [address] Dr. Get Wing #NormalThe [facility] HospitalComment on above:Performed By: #### CMP, HSTROPN, BNP #### [facility] [address] [place] [address] Dr. Get Wing %NormalThe [facility] HospitalComment on above:Performed By: #### CMP, HSTROPN, BNP #### [facility] [address] [place] [address] Dr. Get WhittenCORRECTED WBCNormal4.0-11.0The [facility] HospitalComment on above: Performed By: #### CMP, HSTROPN, BNP #### [facility] [address] [place] [address] Dr. Get Kendrick #0.00 103/ulNormal0.00-0.70The [facility] HospitalComment on above:Performed By: #### CMP, HSTROPN, BNP #### [facility] [address] [address] [address] Get Kendrick%0.0 %Critically low0.9-7.0The [facility] on above:Performed By: #### CMP, HSTROPN, BNP #### [facility] [address] [address] [address] Get WhittenHCT44.0 %Jicavp14.0-54.0The [facility] HospitalComment on above: Performed By: #### CMP, HSTROPN, BNP #### [facility] [address] [address] [address] Get WhittenHGB15.8 g/psZnwblp93.0-18.0The [facility] on above: Performed By: #### CMP, HSTROPN, BNP #### [facility] [address] [address] [address] Get BenavidesPERSEG NEUT2+NormalThe [facility] HospitalComment on above: Performed By: #### CMP, HSTROPN, BNP #### [facility] [address] [address] [address] Get Villarreal #1.56 103/ulNormal1.20-3.80The [facility] on above:Performed By: #### CMP, HSTROPN, BNP #### [facility] [address] [address] [address] Get Villarreal%13.0 %Critically low20.5-60.0The [facility] HospitalComment on above:Performed By: #### CMP, HSTROPN, BNP #### [facility] [address] [address] [address] Get WhittenMCH36.2 pgCritically high25.9-34.0The [facility] on above:Performed By: #### CMP, HSTROPN, BNP #### [facility] [address] [address] [address] Get WhittenMCHC35.9 g/dlCritically high29.9-35.2The [facility] HospitalComment on above:Performed By: #### CMP, HSTROPN, BNP #### [facility] [address] [address] [address] Get FriedV100.7 fLCritically high80.0-94.0The [facility] HospitalComment on above:Performed By: #### CMP, HSTROPN, BNP #### [facility] [address] [address] [address] Get Heredia #NormalThe [facility] HospitalComment on above: Performed By: #### CMP, HSTROPN, BNP #### [facility] [address] [address] [address] Get SalinasOCYTE %NormalThe [facility] HospitalComment on above: Performed By: #### CMP, HSTROPN, BNP #### [facility] [address] [address] [address] Get Leyva#1.08 103/ulCritically high0.30-0.80The [facility] Comment on above:Performed By: #### CMP, HSTROPN, BNP #### [facility] [address] [address] [address] Get Leyva%9.0 %Normal1.7-12.0The [facility]ment on above: Performed By: #### CMP, HSTROPN, BNP #### [facility] [address] [address] [address] Get Rhodes0.3 fLNormal9.5-13.5The [facility] on above: Performed By: #### CMP, HSTROPN, BNP #### [facility] [address] [address] [address] Get Kasper #NormalThe [facility] HospitalComment on above:Performed By: #### CMP, HSTROPN, BNP #### [facility] [address] [address] [address] Get CaryOCYTE %NormalThe [facility] HospitalComment on above:Performed By: #### CMP, HSTROPN, BNP #### [facility] [address] [address] [address] Get ConnBCNormalThe [facility] HospitalComment on above:Performed By: #### CMP, HSTROPN, BNP #### [facility] [address] [address] [address] Get WhittenPLT111 103/ulCritically szs926-322Dgv [facility] HospitalComment on above:Performed By: #### CMP, HSTROPN, BNP #### [facility] [address] [address] [address] Get RubioC4.37 106/ulCritically low4.70-6.10The [facility] HospitalComment on above:Performed By: #### CMP, HSTROPN, BNP #### [facility] [address] [place] [address] Dr. Get WhittenRDW12.4 %Ujaezl97.0-15.0The [facility] HospitalComment on above: Performed By: #### CMP, HSTROPN, BNP #### [facility] [address] [place] [address] Dr. Get Kimble #8.88 103/ulCritically high1.40-6.50The [facility] Comment on above:Performed By: #### CMP, HSTROPN, BNP #### [facility] [address] [address] [address] Get Kimble %74.0 %Jbedzm82.0-75.0The [facility] on above: Performed By: #### CMP, HSTROPN, BNP #### [facility] [address] [address] [address] Get ShepherdBC12.0 103/ulCritically high4.0-11.0The [facility] HospitalComment on above:Performed By: #### CMP, HSTROPN, BNP #### [facility] [address] [address] [address] Get Cintron 84-17-3333TID [Mass/Vol]mg/LNormal<=1.0The [facility] Hospitalment on above:Performed By: #### CMP, HSTROPN, BNP #### [facility] [address] [address] [address] Get WhittenCovid-19 PCR (CVDTB)on 64-90-1644TVET-CoV-2 (COVID-19) RNA ASHLEE+probe Ql (Unsp spec)DetectedCritically abnormalNOT DETECTEDThe [facility] HospitalComment on above:Result Comment: This test is not yet approved or cleared by the [place] FDA. When there are no FDA-approved or cleared tests available, and other criteria are met, FDA can make tests available under an emergency access mechanism called an Emergency Use Authorization (EUA). The EUA for this test is supported by the [place] of Health and Human Service's declaration that [...] longer be used).Performed By: #### CVDTBH #### [facility] [address] [place] [address] Dr. Get WhittenLACTATE/LACTIC ACIDon 15-14-3228Xrwjhrw [Moles/Vol]0.4 mmol/L Normal0.4-1.9The [facility] Hospitalment on above:Performed By: #### CMP, HSTROPN, BNP #### [facility] [address] [address] [address] Get Mckeon 45-79-1473Jhwqxq [Moles/Vol]126 mmol/LCritically bme921-704 The [facility] HospitalComment on above:Performed By: #### BNP, T7, CMP, TSH #### [facility] [address] [place] [address] Dr. Get WhittenPROF 14(COMP METB)on 44-27-7224Rpuzwkw [Mass/Vol]3.6 g/dLNormal 3.4-5.0The [facility] HospitalComment on above:Performed By: #### CMP, HSTROPN, BNP #### [facility] [address] [place] [address] Dr. Get WhittenAlbumin/Globulin [Mass ratio]1.0 {ratio}NormalThe [facility] HospitalComment on above:Performed By: #### CMP, HSTROPN, BNP #### [facility] [address] [place] [address] Dr. Get MartinezP [Catalytic activity/Vol]49 U/CAhkrlh42-933Tvw [facility] HospitalComment on above:Performed By: #### CMP, HSTROPN, BNP #### [facility] [address] [place] [address] Dr. Get Pichardo [Catalytic activity/Vol]80 U/LCritically ilyz03-45Xob [facility] HospitalComment on above:Performed By: #### CMP, HSTROPN, BNP #### [facility] [address] [place] [address] Dr. Get Crow gap [Moles/Vol]16.2 mmol/LNormalThe [facility] Comment on above:Performed By: #### CMP, HSTROPN, BNP #### [facility] [address] [place] [address] Dr. Get WhittenAST [Catalytic activity/Vol]42 U/LCritically oxiv54-01Jep [facility] HospitalComment on above:Performed By: #### CMP, HSTROPN, BNP #### [facility] [address] [place] [address] Dr. Get WhittenBilirubin [Mass/Vol]0.7 mg/dLNormal0.2-1.0The [facility] Comment on above:Performed By: #### CMP, HSTROPN, BNP #### [facility] [address] [place] [address] Dr. Get WhittenCalcium [Mass/Vol]8.4 mg/dLCritically low8.5-10.1The [facility] HospitalComment on above:Performed By: #### CMP, HSTROPN, BNP #### [facility] [address] [address] [address] Get WhittenChloride [Moles/Vol]91 mmol/LCritically nsl42-404Qrj [facility] on above:Performed By: #### CMP, HSTROPN, BNP #### [facility] [address] [address] [address] Get WhittenCO2 [Moles/Vol]19.8 mmol/LCritically low21.0-32.0The [facility] HospitalCommymichigan [facility] on above:Performed By: #### CMP, HSTROPN, BNP #### [facility] [address] [place] [address] Dr. Get WhittenCreatinine [Mass/Vol]1.11 mg/dLNormal0.70-1.30The [facility] on above:Performed By: #### CMP, HSTROPN, BNP #### [facility] [address] [place] [address] Dr. Get PaytonGFR-AF ANGOLAN>60Normal>=60The [facility] on above:Performed By: #### CMP, HSTROPN, BNP #### [facility] [address] [place] [address] Dr. Get PaytonGFR-NON AF ANGOLAN>60Normal>=60The [facility] on above:Performed By: #### CMP, HSTROPN, BNP #### [facility] [address] [place] [address] Dr. Get WhittenGlobulin (S) [Mass/Vol]3.6 g/dLNormalThe [facility] on above:Performed By: #### CMP, HSTROPN, BNP #### [facility] [address] [place] [address] Dr. Get WhittenGlucose [Mass/Vol]109 mg/dLCritically dgwj28-967Uhe [facility] on above:Performed By: #### CMP, HSTROPN, BNP #### [facility] [address] [place] [address] Dr. Get WhittenPotassium [Moles/Vol]4.0 mmol/LNormal3.5-5.1The [facility] Comment on above:Performed By: #### CMP, HSTROPN, BNP #### [facility] [address] [address] [address] Get WhittenProtein [Mass/Vol]7.2 g/dLNormal6.4-8.2The [facility] Comment on above:Performed By: #### CMP, HSTROPN, BNP #### [facility] [address] [address] [address] Get WhittenSodium [Moles/Vol]123 mmol/LCritically amp825-645Bjv [facility] HospitalComment on above:Performed By: #### CMP, HSTROPN, BNP #### [facility] [address] [place] [address] Dr. Get WhittenUrea nitrogen [Mass/Vol]15.0 mg/dLNormal7.0-18.0The [facility] HospitalComment on above:Performed By: #### CMP, HSTROPN, BNP #### [facility] [address] [place] [address] Dr. Get WhittenUrea nitrogen/Creatinine [Mass ratio]13.5 mg/mgNoMcCullough-Hyde Memorial HospitalComment on above:Performed By: #### CMP, HSTROPN, BNP #### [facility] [address] [place] [address] Dr. Get WhittenSPUTUM GRAM STAINon 08-16-5505YNTBKKZPBY ORGANISMS OBSERVEDNormal The [facility] HospitalComment on above:Performed By: #### CVDTBH #### [facility] [address] [place] [address] Dr. Get LopezPHTHEROIDSNoMcCullough-Hyde Memorial HospitalComment on above:Performed By: #### CVDTBH #### [facility] [address] [place] [address] Dr. Deutsch ChangEPITHELIALS<25NormEast Liverpool City HospitalComment on above: Performed By: #### CVDTBH #### [facility] [address] [address] [address] Get IsaacNGAL ELEMENTSKindred Hospital LimaComment on above: Performed By: #### CVDTBH #### [facility] [address] [address] [address] Get Bonner NEG BACILLIKindred Hospital LimaCommymichigan medical center on above: Performed By: #### CVDTBH #### [facility] [address] [address] [address] Get Bonner NEG DIPPLOCOCCIKindred Hospital LimaCommymichigan medical center on above: Performed By: #### CVDTBH #### [facility] [address] [address] [address] Get Bonner POS [facility] TroyCommymichigan medical center on above: Performed By: #### CVDTBH #### [facility] [address] [address] [address] Get Bonner POSITIVE COCCINoMcCullough-Hyde Memorial HospitalCommymichigan medical center on above: Performed By: #### CVDTBH #### [facility] [address] [address] [address] Get Hedrick (Bld) [#/Vol]10*3/[facility] on above:Performed By: #### CVDTBH #### [facility] [address] [address] [address] Get Charles, HIGH SENSITIVITYon 21-77-4417BTQPCO99.8 pg/mLNormal 4.0-76.1The [facility] on above:Result Comment: CUT-OFF POINTS HAVE BEEN ESTABLISHED BASED ON THE FOURTH UNIVERSAL DEFINITIONS OF MYOCARDIAL INFARCTION. THE UPPER REFERENCE LIMIT (URL) OF TROPONIN, DEFINED THE 99TH PERCENTILE OF cTnI DISTRIBUTION IN A REFERENCE POPULATION, HAS BEEN CONFIRMED THE DECISION THRESHOLD FOR NC DIAGNOSIS.Performed By: #### CMP, HSTROPN, BNP #### [facility] [address] [address] [address] Get Hidalgo 22-92-9727UJN75.305 uIU/mLCritically high0.358-3.740The [facility] HospitalComment on above:Performed By: #### CMP, HSTROPN, BNP #### [facility] [address] [place] [address] Dr. Get Morgan CHEST 1 Von [id number] CHEST 1 VEXAM: XR CHEST 1 V HISTORY: COUGH COMPARISON: Chest x-ray 03/23/2022 TECHNIQUE: Single frontal view chest x-ray FINDINGS: No lobar consolidation, large pleural effusions, pneumothorax, or acute bony abnormality. Cardiac size is unremarkable. IMPRESSION: No radiographic evidence for acute chest abnormality. Electronically authenticated by: JANKI STEEL Date: 2022-03-26 04:[address] [place] [address] [id number] peptide B (Bld) [Mass/Vol]385.0 pg/mLNormal<=900.0The [facility] HospitalComment on above:Performed By: #### CMP, HSTROPN, BNP #### [facility] [address] [place] [address] Dr. Get Meyer W MANUAL DIFFon [id number] LYMPH #NormalThe [facility] HospitalComment on above:Performed By: #### BNP, T7, CMP, TSH #### [facility] [address] [place] [address] Dr. Get WhittenATYPICAL LYMPH %NormalThe [facility] HospitalComment on above: Performed By: #### BNP, T7, CMP, TSH #### [facility] [address] [place] [address] Dr. Get Day #0.2 103/ulNormal0.0-0.3The [facility] HospitalComment on above:Performed By: #### BNP, T7, CMP, TSH #### [facility] [address] [place] [address] Dr. Get Day %2 %Normal0-5The [facility] Hospitalment on above:Performed By: #### BNP, T7, CMP, TSH #### [facility] [address] [place] [address] Dr. Yilan ChangBASOM #0.00 103/ulNormal0.00-0.10The [facility] HospitalComment on above:Performed By: #### BNP, T7, CMP, TSH #### [facility] [address] [place] [address] Dr. Get Aceves %0.0 %Critically low0.2-2.0The [facility] HospitalComment on above:Performed By: #### BNP, T7, CMP, TSH #### [facility] [address] [place] [address] Dr. Get Wing #NormalCleveland Clinic Fairview HospitalComment on above:Performed By: #### BNP, T7, CMP, TSH #### [facility] [address] [place] [address] Dr. Get Wing %NormalThe [facility] HospitalComment on above:Performed By: #### BNP, T7, CMP, TSH #### [facility] [address] [place] [address] Dr. Get WhittenCORRECTED WBCNormal4.0-11.0The [facility] HospitalComment on above: Performed By: #### BNP, T7, CMP, TSH #### [facility] [address] [place] [address] Dr. Get Kendrick #0.00 103/ulNormal0.00-0.70The [facility] HospitalCommymichigan medical center on above:Performed By: #### BNP, T7, CMP, TSH #### [facility] [address] [place] [address] Dr. Get Kendrick%0.0 %Critically low0.9-7.0The [facility] HospitalComment on above:Performed By: #### BNP, T7, CMP, TSH #### [facility] [address] [place] [address] Dr. Get WhittenHCT45.6 %Jpxhsh26.0-54.0The [facility] HospitalComment on above: Performed By: #### BNP, T7, CMP, TSH #### [facility] [address] [place] [address] Dr. Get WhittenHGB16.3 g/rzYixzzu82.0-18.0The [facility] HospitalComment on above: Performed By: #### BNP, T7, CMP, TSH #### [facility] [address] [place] [address] Dr. Get Villarreal #0.89 103/ulCritically low1.20-3.80The [facility] Comment on above:Performed By: #### BNP, T7, CMP, TSH #### [facility] [address] [place] [address] Dr. Get Villarreal%9.0 %Critically low20.5-60.0The [facility] HospitalComment on above:Performed By: #### BNP, T7, CMP, TSH #### [facility] [address] [place] [address] Dr. Get FriedH36.5 pgCritically high25.9-34.0The [facility] HospitalComment on above:Performed By: #### BNP, T7, CMP, TSH #### [facility] [address] [place] [address] Dr. Get FriedHC35.7 g/dlCritically high29.9-35.2The [facility] HospitalComment on above:Performed By: #### BNP, T7, CMP, TSH #### [facility] [address] [place] [address] Dr. Get FriedV102.0 fLCritically high80.0-94.0The [facility] HospitalComment on above:Performed By: #### BNP, T7, CMP, TSH #### [facility] [address] [place] [address] Dr. Get SalinasOCYTE #NormalThe [facility] HospitalComment on above: Performed By: #### BNP, T7, CMP, TSH #### [facility] [address] [place] [address] Dr. Gte SalinasOCYTE %NormalThe [facility] HospitalComment on above: Performed By: #### BNP, T7, CMP, TSH #### [facility] [address] [place] [address] Dr. Get Leyva#0.89 103/ulCritically high0.30-0.80The [facility] Comment on above:Performed By: #### BNP, T7, CMP, TSH #### [facility] [address] [address] [address] Get Leyva%9.0 %Normal1.7-12.0The [facility] HospitalComment on above: Performed By: #### BNP, T7, CMP, TSH #### [facility] [address] [address] [address] Get RivasV8.8 fLCritically low9.5-13.5The [facility] HospitalComment on above:Performed By: #### BNP, T7, CMP, TSH #### [facility] [address] [place] [address] Dr. Get CaryOCYTE #NormalThe [facility] HospitalComment on above:Performed By: #### BNP, T7, CMP, TSH #### [facility] [address] [address] [address] Get CaryOCYTE %NormalThe [facility] HospitalComment on above:Performed By: #### BNP, T7, CMP, TSH #### [facility] [address] [place] [address] Dr. Get ConnBCNormalThe [facility] HospitalComment on above:Performed By: #### BNP, T7, CMP, TSH #### [facility] [address] [address] [address] eGt SalazarT156 103/bnLgrdkg569-192Obp [facility] HospitalComment on above: Performed By: #### BNP, T7, CMP, TSH #### [facility] [address] [place] [address] Dr. Get WhittenRBC4.47 106/ulCritically low4.70-6.10The [facility] HospitalComment on above:Performed By: #### BNP, T7, CMP, TSH #### [facility] [address] [place] [address] Dr. Get RamirezW12.4 %Zckscs70.0-15.0The [facility] HospitalComment on above: Performed By: #### BNP, T7, CMP, TSH #### [facility] [address] [address] [address] Get Kimble #7.92 103/ulCritically high1.40-6.50The [facility] Comment on above:Performed By: #### BNP, T7, CMP, TSH #### [facility] [address] [place] [address] Dr. Get Kimble %80.0 %Critically high43.0-75.0The [facility] HospitalComment on above:Performed By: #### BNP, T7, CMP, TSH #### [facility] [address] [place] [address] Dr. Get WhittenWBC9.9 103/ulNormal4.0-11.0The [facility] Hospitalment on above: Performed By: #### BNP, T7, CMP, TSH #### [facility] [address] [place] [address] Dr. Get Richards 14(COMP METB)on 56-30-8424Achtvcp [Mass/Vol]3.9 g/dLNormal 3.4-5.0The [facility] HospitalComment on above:Performed By: #### CMP, HSTROPN, BNP #### [facility] [address] [place] [address] Dr. Get WhittenAlbumin/Globulin [Mass ratio]1.1 {ratio}NormalThe [facility] Hospitalment on above:Performed By: #### CMP, HSTROPN, BNP #### [facility] [address] [place] [address] Dr. Get Saba [Catalytic activity/Vol]55 U/ZLdqrpz42-464Rov [facility] Hospitalment on above:Performed By: #### CMP, HSTROPN, BNP #### [facility] [address] [place] [address] Dr. Get Pichardo [Catalytic activity/Vol]67 U/LCritically rvqc21-87Wfz [facility] HospitalComment on above:Performed By: #### CMP, HSTROPN, BNP #### [facility] [address] [place] [address] Dr. Get Torrezon gap [Moles/Vol]13.2 mmol/LNormalThe [facility] Comment on above:Performed By: #### CMP, HSTROPN, BNP #### [facility] [address] [place] [address] Dr. Get WhittenAST [Catalytic activity/Vol]20 U/XWpywsu06-43Ppz [facility] HospitalComment on above:Performed By: #### CMP, HSTROPN, BNP #### [facility] [address] [place] [address] Dr. Get WhittenBilirubin [Mass/Vol]0.4 mg/dLNormal0.2-1.0The [facility] Comment on above:Performed By: #### CMP, HSTROPN, BNP #### [facility] [address] [place] [address] Dr. Get WhittenCalcium [Mass/Vol]8.5 mg/dLNormal8.5-10.1[facility] Comment on above:Performed By: #### CMP, HSTROPN, BNP #### [facility] [address] [place] [address] Dr. Get WhittenChloride [Moles/Vol]93 mmol/LCritically nly43-747Ntq [facility] HospitalComment on above:Performed By: #### CMP, HSTROPN, BNP #### [facility] [address] [place] [address] Dr. Get WhittenCO2 [Moles/Vol]22.6 mmol/IBbndql81.0-32.0The [facility] Comment on above:Performed By: #### CMP, HSTROPN, BNP #### [facility] [address] [place] [address] Dr. Get WhittenCreatinine [Mass/Vol]1.26 mg/dLNormal0.70-1.30The [facility] HospitalComment on above:Performed By: #### CMP, HSTROPN, BNP #### [facility] [address] [address] [address] Get PaytonGFR-AF ANGOLAN>60Normal>=60The [facility] Hospitalment on above:Performed By: #### CMP, HSTROPN, BNP #### [facility] [address] [address] [address] Get PaytonGFR-NON AF IKWJJSYT00 mL/min/1.96g6Fhnbkuimgf low>=60The [facility] HospitalComment on above:Performed By: #### CMP, HSTROPN, BNP #### [facility] [address] [address] [address] Get WhittenGlobulin (S) [Mass/Vol]3.5 g/dLNormalThe [facility] HospitalComment on above:Performed By: #### CMP, HSTROPN, BNP #### [facility] [address] [place] [address] Dr. Gte WhittenGlucose [Mass/Vol]144 mg/dLCritically vmye16-163Syp [facility] HospitalComment on above:Performed By: #### CMP, HSTROPN, BNP #### [facility] [address] [place] [address] Dr. Get WhittenPotassium [Moles/Vol]3.9 mmol/LNormal3.5-5.1The [facility] Comment on above:Performed By: #### CMP, HSTROPN, BNP #### [facility] [address] [address] [address] Get WhittenProtein [Mass/Vol]7.4 g/dLNormal6.4-8.2The [facility] Comment on above:Performed By: #### CMP, HSTROPN, BNP #### [facility] [address] [place] [address] Dr. Get WhittenSodium [Moles/Vol]125 mmol/LCritically bzr960-892Cno [facility] Hospitalment on above:Performed By: #### CMP, HSTROPN, BNP #### [facility] [address] [place] [address] Dr. Get WhittenUrea nitrogen [Mass/Vol]14.0 mg/dLNormal7.0-18.0The [facility] on above:Performed By: #### CMP, HSTROPN, BNP #### [facility] [address] [address] [address] Get WhittenUrea nitrogen/Creatinine [Mass ratio]11.1 mg/mgNoMcCullough-Hyde Memorial HospitalCommymichigan medical center on above:Performed By: #### CMP, HSTROPN, BNP #### [facility] [address] [address] [address] Get Charles, HIGH SENSITIVITYon 22-33-8048BEVRDX4.6 pg/mLNormal 4.0-76.1The [facility] on above:Result Comment: CUT-OFF POINTS HAVE BEEN ESTABLISHED BASED ON THE FOURTH UNIVERSAL DEFINITIONS OF MYOCARDIAL INFARCTION. THE UPPER REFERENCE LIMIT (URL) OF TROPONIN, DEFINED THE 99TH PERCENTILE OF cTnI DISTRIBUTION IN A REFERENCE POPULATION, HAS BEEN CONFIRMED THE DECISION THRESHOLD FOR NC DIAGNOSIS.Performed By: #### CMP, HSTROPN, BNP #### [facility] [address] [address] [address] Get WhittenXR CHEST 1 Von [id number] CHEST 1 VEXAMINATION: XR CHEST 1 V [...] Electronically authenticated by: SHEN SOSA Date: 2022-03-23 15:02[facility] LimaCovid-19 PCR (CVDTBH)on 19-71-2201XUVX-CoV-2 (COVID-19) RNA ASHLEE+probe Ql (Unsp spec)DetectedCritically abnormalNOT DETECTEDThe [facility]eli HospitalComment on above:Result Comment: This test is not yet approved or cleared by the [place] FDA. When there are no FDA-approved or cleared tests available, and other criteria are met, FDA can make tests available under an emergency access mechanism called an Emergency Use Authorization (EUA). The EUA for this test is supported by the [place] of Health and Human Service's declaration that [...] used).Performed By: #### CMP, HSTROPN, BNP #### [facility] [address] [place] [address] Dr. Get Meyer AUTO DIFFon [id number] #0.1 103/ulNormal0.0-0.1The [facility] HospitalComment on above:Performed By: #### BNP, T7, CMP, TSH #### [facility] [address] [place] [address] Dr. Get WhittenBasophils/100 WBC (Bld)0.6 %Normal0.2-2.0[facility] Comment on above:Performed By: #### BNP, T7, CMP, TSH #### [facility] [address] [place] [address] Dr. Get Babcock #0.0 103/ulNormal0.0-0.7The [facility] HospitalComment on above: Performed By: #### BNP, T7, CMP, TSH #### [facility] [address] [place] [address] Dr. Get Paytonosinophils/100 WBC (Bld)0.1 %Critically low0.9-7.0The [facility] HospitalComment on above:Performed By: #### BNP, T7, CMP, TSH #### [facility] [address] [place] [address] Dr. Get Paytonrythrocyte distribution width (RBC) [Ratio]13.1 %Vtnyqm81.0-15.0 The [facility] HospitalComment on above:Performed By: #### BNP, T7, CMP, TSH #### [facility] [address] [place] [address] Dr. Get WhittenHematocrit (Bld) [Volume fraction]41.0 %Critically low42.0-54.0 The [facility] HospitalComment on above:Performed By: #### BNP, T7, CMP, TSH #### [facility] [address] [place] [address] Dr. Get WhittenHemoglobin (Bld) [Mass/Vol]14.3 g/dXLxsaqo19.0-18.0The [facility] Hospitalment on above:Performed By: #### BNP, T7, CMP, TSH #### [facility] [address] [place] [address] Dr. Get Sanford #0.25 10e3/ulCritically high0.00-0.03The [facility] Comment on above:Performed By: #### BNP, T7, CMP, TSH #### [facility] [address] [place] [address] Dr. Get Sanford %2.3 %Critically high0.0-0.5The [facility] Hospitalment on above:Performed By: #### BNP, T7, CMP, TSH #### [facility] [address] [place] [address] Dr. Get Otoole #2.4 103/ulNormal1.2-3.8The [facility] Hospitalment on above:Performed By: #### BNP, T7, CMP, TSH #### [facility] [address] [place] [address] Dr. Get Grimeshocytes/100 WBC (Bld)21.7 %Xtvnbo88.5-60.0The [facility] Hospitalment on above:Performed By: #### BNP, T7, CMP, TSH #### [facility] [address] [place] [address] Dr. Get HeadUAL DIFF REQNONormalThe [facility] HospitalComment on above: Performed By: #### BNP, T7, CMP, TSH #### [facility] [address] [place] [address] Dr. Get Fried (RBC) [Entitic mass]37.0 pgCritically high25.9-34.0The [facility] HospitalComment on above:Performed By: #### BNP, T7, CMP, TSH #### [facility] [address] [place] [address] Dr. Get Fried (RBC) [Mass/Vol]34.9 g/nOUwjxiz70.9-35.2The [facility] HospitalComment on above:Performed By: #### BNP, T7, CMP, TSH #### [facility] [address] [place] [address] Dr. Get Whitten (RBC) [Entitic vol]105.9 fLCritically high80.0-94.0The [facility] HospitalComment on above:Result Comment: 1+ macrocytosisPerformed By: #### BNP, T7, CMP, TSH #### [facility] [address] [place] [address] Dr. Get Bill #0.8 103/ulNormal0.3-0.8The [facility] HospitalComment on above:Performed By: #### BNP, T7, CMP, TSH #### [facility] [address] [place] [address] Dr. Get Lockettocytes/100 WBC (Bld)7.0 %Normal1.7-12.0The [facility] Comment on above:Performed By: #### BNP, T7, CMP, TSH #### [facility] [address] [place] [address] Dr. Get Falcon #7.5 103/ulCritically high1.4-6.5The [facility] Comment on above:Performed By: #### BNP, T7, CMP, TSH #### [facility] [address] [place] [address] Dr. Get WhittenNeutrophils/100 WBC (Bld)68.3 %Bvcymn26.0-75.0The [facility] HospitalComment on above:Performed By: #### BNP, T7, CMP, TSH #### [facility] [address] [place] [address] Dr. Get Hanleylet mean volume (Bld) [Entitic vol]8.6 fLCritically low 9.5-13.5The [facility] HospitalComment on above:Performed By: #### BNP, T7, CMP, TSH #### [facility] [address] [place] [address] Dr. Get WhittenPLT235 103/dsLxkial826-051Coi [facility] HospitalComment on above: Performed By: #### BNP, T7, CMP, TSH #### [facility] [address] [place] [address] Dr. Get WhittenRBC3.87 106/ulCritically low4.70-6.10The [facility] HospitalComment on above:Performed By: #### BNP, T7, CMP, TSH #### [facility] [address] [place] [address] Dr. Get WhittenWBC11.0 103/ulNormal4.0-11.0The [facility] HospitalComment on above:Performed By: #### BNP, T7, CMP, TSH #### [facility] [address] [place] [address] Dr. Get WhittenPOINT OF CARE GLUCOSEon 81-99-1547Ipfibkf [Mass/Vol]116 mg/dL Critically gydx71-182Bbe [facility] on above:Performed By: #### CMP #### [facility] [address] [place] [address] Dr. Get WhittenPROF CHEM 8 (BAS METB)on 29-54-1542Czouk gap [Moles/Vol]14.2 mmol/LNormalThe [facility] HospitalComment on above:Performed By: #### BNP, T7, CMP, TSH #### [facility] [address] [place] [address] Dr. Get WhittenCalcium [Mass/Vol]8.7 mg/dLNormal8.5-10.1The [facility] Comment on above:Performed By: #### BNP, T7, CMP, TSH #### [facility] [address] [address] [address] Get WhittenChloride [Moles/Vol]99 mmol/MYhdqkp23-616Euk [facility] Comment on above:Performed By: #### BNP, T7, CMP, TSH #### [facility] [address] [address] [address] Get WhittenCO2 [Moles/Vol]25.1 mmol/ACkhwnw74.0-32.0The [facility] Comment on above:Performed By: #### BNP, T7, CMP, TSH #### [facility] [address] [place] [address] Dr. Get WhittenCreatinine [Mass/Vol]1.24 mg/dLNormal0.70-1.30The [facility] HospitalComment on above:Performed By: #### BNP, T7, CMP, TSH #### [facility] [address] [place] [address] Dr. Get PaytonGFR-AF ANGOLAN>60Normal>=60The [facility] HospitalComment on above:Performed By: #### BNP, T7, CMP, TSH #### [facility] [address] [place] [address] Dr. Get Mcdowell-NON AF ANGOLAN=60Normal>=60The [facility] HospitalComment on above:Performed By: #### BNP, T7, CMP, TSH #### [facility] [address] [place] [address] Dr. Get WhittenGlucose [Mass/Vol]122 mg/dLCritically aasw95-727Zwp [facility] HospitalComment on above:Performed By: #### BNP, T7, CMP, TSH #### [facility] [address] [place] [address] Dr. Get WhittenPotassium [Moles/Vol]4.3 mmol/LNormal3.5-5.1The [facility] Comment on above:Performed By: #### BNP, T7, CMP, TSH #### [facility] [address] [place] [address] Dr. Get WhittenSodium [Moles/Vol]134 mmol/LCritically kpu738-890Exm [facility] HospitalComment on above:Performed By: #### BNP, T7, CMP, TSH #### [facility] [address] [address] [address] Get De Jesus nitrogen [Mass/Vol]7.0 mg/dLNormal7.0-18.0The [facility] HospitalComment on above:Performed By: #### BNP, T7, CMP, TSH #### [facility] [address] [address] [address] Get WhittenUrea nitrogen/Creatinine [Mass ratio]5.6 mg/mgNoMcCullough-Hyde Memorial HospitalComment on above:Performed By: #### BNP, T7, CMP, TSH #### [facility] [address] [place] [address] Dr. Get Charles, HIGH SENSITIVITYon 83-39-7735NKQFPO4.1 pg/mLNormal 4.0-76.1The [facility] HospitalCommymichigan medical center on above:Result Comment: CUT-OFF POINTS HAVE BEEN ESTABLISHED BASED ON THE FOURTH UNIVERSAL DEFINITIONS OF MYOCARDIAL INFARCTION. THE UPPER REFERENCE LIMIT (URL) OF TROPONIN, DEFINED THE 99TH PERCENTILE OF cTnI DISTRIBUTION IN A REFERENCE POPULATION, HAS BEEN CONFIRMED THE DECISION THRESHOLD FOR NC DIAGNOSIS.Performed By: #### BNP, T7, CMP, TSH #### [facility] [address] [place] [address] Dr. Get WhittenXR CHEST 1 Von 26-12-5259ZT CHEST 1 VEXAM: Chest x-ray HISTORY: . CHEST PAIN, UNSPECIFIED . COMPARISON: 01/09/2022 TECHNIQUE: AP portable upright view of the chest FINDINGS: This is an expiratory chest. Heart and vascularity are unremarkable. Lungs are free of focal infiltrates. EKG leads overlie the chest. IMPRESSION: 1. Expiratory chest. 2. No acute heart or lung disease identified. Electronically authenticated by: JULIO CESAR PARKER Date: 2022-01-24 11:31[facility] LimaBNPon 63-08-6670Dnydrwrnnlq peptide B (Bld) [Mass/Vol]83.0 pg/mLNormal<=900.0The [facility] City HospitalComment on above:Performed By: #### CMP, HSTROPN, BNP #### [facility] [address] [place] [address] Dr. Get Meyer AUTO DIFFon 07-02-1100HWAU #0.0 103/ulNormal0.0-0.1The [facility] City HospitalComment on above:Performed By: #### CMP #### [facility] [address] [place] [address] Dr. Get WhittenBasophils/100 WBC (Bld)0.4 %Normal0.2-2.0The [facility] Comment on above:Performed By: #### CMP #### [facility] [address] [place] [address] Dr. Deutsch ChangEAustin #0.0 103/ulNormal0.0-0.7The [facility] HospitalCommymichigan medical center on above: Performed By: #### CMP #### [facility] [address] [place] [address] Dr. Get Paytonosinophils/100 WBC (Bld)0.2 %Critically low0.9-7.0The [facility] on above:Performed By: #### CMP #### [facility] [address] [place] [address] Dr. Get Paytonrythrocyte distribution width (RBC) [Ratio]13.1 %Ofrsik16.0-15.0 [facility] Springfieldment on above:Performed By: #### CMP #### [facility] [address] [place] [address] Dr. Get WhittenHematocrit (Bld) [Volume fraction]41.5 %Critically low42.0-54.0 The [facility] Hospitalment on above:Performed By: #### CMP #### [facility] [address] [place] [address] Dr. Get WhittenHemoglobin (Bld) [Mass/Vol]14.4 g/oIMejqci37.0-18.0The [facility] Hospitalment on above:Performed By: #### CMP #### [facility] [address] [place] [address] Dr. Get Sanford #0.12 10e3/ulCritically high0.00-0.03The [facility] Comment on above:Performed By: #### CMP #### [facility] [address] [place] [address] Dr. Get Sanford %1.1 %Critically high0.0-0.5The [facility] City HospitalComment on above:Performed By: #### CMP #### [facility] [address] [place] [address] Dr. Get Otoole #2.3 103/ulNormal1.2-3.8The [facility] City HospitalComment on above:Performed By: #### CMP #### [facility] [address] [place] [address] Dr. Get Grimeshocytes/100 WBC (Bld)20.9 %Hrgemw82.5-60.0The [facility] City HospitalComment on above:Performed By: #### CMP #### [facility] [address] [place] [address] Dr. Get HeadUAL DIFF REQNONormalThe [facility]oria City HospitalComment on above: Performed By: #### CMP #### [facility] [address] [place] [address] Dr. Get Fried (RBC) [Entitic mass]37.1 pgCritically high25.9-34.0The [facility] City HospitalComment on above:Performed By: #### CMP #### [facility] [address] [place] [address] Dr. Get Fried (RBC) [Mass/Vol]34.7 g/nONodwse92.9-35.2The [facility] City HospitalComment on above:Performed By: #### CMP #### [facility] [address] [place] [address] Dr. Get Fried (RBC) [Entitic vol]107.0 fLCritically high80.0-94.0The [facility] City HospitalComment on above:Result Comment: 1+ macrocytosisPerformed By: #### CMP #### [facility] [address] [address] [address] Get Bill #0.7 103/ulNormal0.3-0.8The [facility] City HospitalComment on above:Performed By: #### CMP #### [facility] [address] [address] [address] Get Lockettocytes/100 WBC (Bld)6.3 %Normal1.7-12.0[facility] Comment on above:Performed By: #### CMP #### [facility] [address] [place] [address] Dr. Get Falcon #7.7 103/ulCritically high1.4-6.5[facility] Comment on above:Performed By: #### CMP #### [facility] [address] [place] [address] Dr. Get Andersonutrophils/100 WBC (Bld)71.1 %Jfclln05.0-75.0The [facility] City HospitalComment on above:Performed By: #### CMP #### [facility] [address] [place] [address] Dr. Get Castro mean volume (Bld) [Entitic vol]8.6 fLCritically low 9.5-13.5The [facility] City HospitalComment on above:Performed By: #### CMP #### [facility] [address] [place] [address] Dr. Get WhittenPLT238 103/xsRlvmbq337-029Gaj [facility] City HospitalComment on above: Performed By: #### CMP #### [facility] [address] [place] [address] Dr. Get WhittenRBC3.88 106/ulCritically low4.70-6.10The [facility] City HospitalComment on above:Performed By: #### CMP #### [facility] [address] [place] [address] Dr. Get WhittenWBC10.8 103/ulNormal4.0-11.0The [facility] City HospitalComment on above:Performed By: #### CMP #### [facility] [address] [place] [address] Dr. Get WhittenCovid-19 PCR ([facility])on 01-92-8505SNZA-CoV-2 (COVID-19) RNA ASHLEE+probe Ql (Unsp spec)Not detectedNormalNOT DETECTEDThe [facility] Comment on above:Result Comment: When diagnostic [...] for this test is supported by the [employer] of Health and Human Service's declaration that [...] used).Performed By: #### CMP, HSTROPN, BNP #### [facility] [address] [place] [address] Dr. Get WhittenPROF 14(COMP METB)on 64-32-1762Rpfuoyb [Mass/Vol]4.0 g/dLNormal 3.4-5.0The [facility] City HospitalComment on above:Performed By: #### CMP, HSTROPN, BNP #### [facility] [address] [place] [address] Dr. Get WhittenAlbumin/Globulin [Mass ratio]1.0 {ratio}NormalThe [facility]oria City HospitalComment on above:Performed By: #### CMP, HSTROPN, BNP #### [facility] [address] [place] [address] Dr. Get WhittenALP [Catalytic activity/Vol]90 U/DJuavsg39-509Oqy [facility] Hospitalment on above:Performed By: #### CMP, HSTROPN, BNP #### [facility] [address] [address] [address] Get Pichardo [Catalytic activity/Vol]27 U/AIhulhc88-58Bwg [facility] HospitalComment on above:Performed By: #### CMP, HSTROPN, BNP #### [facility] [address] [address] [address] Get Crow gap [Moles/Vol]12.6 mmol/LNormalThe [facility] Comment on above:Performed By: #### CMP, HSTROPN, BNP #### [facility] [address] [place] [address] Dr. Get WhittenAST [Catalytic activity/Vol]16 U/UUoieks42-13Ehs [facility] HospitalComment on above:Performed By: #### CMP, HSTROPN, BNP #### [facility] [address] [place] [address] Dr. Get WhittenBilirubin [Mass/Vol]0.4 mg/dLNormal0.2-1.0[facility] Comment on above:Performed By: #### CMP, HSTROPN, BNP #### [facility] [address] [place] [address] Dr. Get WhittenCalcium [Mass/Vol]8.4 mg/dLCritically low8.5-10.1[facility] HospitalComment on above:Performed By: #### CMP, HSTROPN, BNP #### [facility] [address] [place] [address] Dr. Get WhittenChloride [Moles/Vol]100 mmol/TZafeos81-176JqgCleveland Clinic Fairview Hospital Comment on above:Performed By: #### CMP, HSTROPN, BNP #### [facility] [address] [place] [address] Dr. Get WhittenCO2 [Moles/Vol]25.1 mmol/QVqklrr37.0-32.0[facility] Comment on above:Performed By: #### CMP, HSTROPN, BNP #### [facility] [address] [place] [address] Dr. Yilan ChangCreatinine [Mass/Vol]1.20 mg/dLNormal0.70-1.30The [facility] City HospitalComment on above:Performed By: #### CMP, HSTROPN, BNP #### [facility] [address] [place] [address] Dr. Get PaytonGFR-AF ANGOLAN>60Normal>=60The [facility] City HospitalComment on above:Performed By: #### CMP, HSTROPN, BNP #### [facility] [address] [place] [address] Dr. Get PaytonGFR-NON AF ANGOLAN>60Normal>=60The [facility] HospitalComment on above:Performed By: #### CMP, HSTROPN, BNP #### [facility] [address] [place] [address] Dr. Get WhittenGlobulin (S) [Mass/Vol]4.0 g/dLNormalThe [facility] City HospitalComment on above:Performed By: #### CMP, HSTROPN, BNP #### [facility] [address] [place] [address] Dr. Get WhittenGlucose [Mass/Vol]110 mg/dLCritically qzsn24-810Reo [facility] Hospitalment on above:Performed By: #### CMP, HSTROPN, BNP #### [facility] [address] [place] [address] Dr. Get WhittenPotassium [Moles/Vol]4.7 mmol/LNormal3.5-5.1The [facility] Comment on above:Performed By: #### CMP, HSTROPN, BNP #### [facility] [address] [place] [address] Dr. Get WhittenProtein [Mass/Vol]8.0 g/dLNormal6.4-8.2The [facility] Comment on above:Performed By: #### CMP, HSTROPN, BNP #### [facility] [address] [place] [address] Dr. Get WhittenSodium [Moles/Vol]133 mmol/LCritically aov468-777Ksj Meli HospitalComment on above:Performed By: #### CMP, HSTROPN, BNP #### [facility] [address] [place] [address] Dr. Get De Jesus nitrogen [Mass/Vol]7.0 mg/dLNormal7.0-18.0[facility] HospitalComment on above:Performed By: #### CMP, HSTROPN, BNP #### [facility] [address] [place] [address] Dr. Get De Jesus nitrogen/Creatinine [Mass ratio]5.8 mg/mgNoMcCullough-Hyde Memorial HospitalComment on above:Performed By: #### CMP, HSTROPN, BNP #### [facility] [address] [place] [address] Dr. Get WhittenPROTIMErell 33-99-6199TYD Coag (PPP) [Relative time]{INR}NormalGenesis Hospital on above:Performed By: #### CVDTBH #### [facility] [address] [place] [address] Dr. Get Monteiro GUIDELINESSEE BELOWKindred Hospital LimaComment on above:Result Comment: DESIRED INR: 2.0 - 3.0 CONDITIONS NOT LISTED BELOW 2.5 - 3.5 FOR PROSTHETIC HEART VALVE REPLACEMENT 2.5 - 3.5 RECURRENT THROMBOSIS Performed By: #### CVDTBH #### [facility] [address] [place] [address] Dr. Get Molina Coag (PPP) [Time]9.8 sNormal9.0-11.6The [facility] Comment on above:Performed By: #### CVDTBH #### [facility] [address] [place] [address] Dr. Get Henley 11-20-0033iHLE Coag (Bld) [Time]28.5 fYhvisb16.3-36.2[facility] Springfieldment on above:Performed By: #### CMP #### [facility] [address] [place] [address] Dr. Get Charles, [facility] SENSITIVITYon 87-09-8358YSGTMO3.1 pg/mLNormal 4.0-76.1The [facility] City HospitalComment on above:Result Comment: CUT-OFF POINTS HAVE BEEN ESTABLISHED BASED ON THE FOURTH UNIVERSAL DEFINITIONS OF MYOCARDIAL INFARCTION. THE UPPER REFERENCE LIMIT (URL) OF TROPONIN, DEFINED THE 99TH PERCENTILE OF cTnI DISTRIBUTION IN A REFERENCE POPULATION, HAS BEEN CONFIRMED THE DECISION THRESHOLD FOR NC DIAGNOSIS.Performed By: #### CMP, HSTROPN, BNP #### [facility] [address] [place], [place] [address] Dr. 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, left eye SECONDARY: PYMT PROC APC STAT DESCRIPTION DOCTOR NAME DATE 28325 5481 T Discission of secondary Merline CARBAJAL Darnell 12/17/2018 membranous cataract (opacified posterior lens capsule [...] By: Verona Woodward Date Saved: 12/18/2018 10:51 [facility] Vital Signs Date TimeVital SignValuePerforming LumgpzrqnFamgnxsu49-94-7286 11:17-0400Body .88 cmPee Lakhani MD Work Phone: 1(419)[address] [place], [place] 4573208-20-2025 11:17-0400 Body mass index (BMI) [Ratio]28.4 kg/d2KacwflePee Lakhani MD Work Phone: 1(419)[address] [place], [place] 4573208-20-2025 11:17-0400 Body kynyqa61 kgPee Lakhani MD Work Phone: 1(419)[address] [place], [place] 4573208-14-2025 11:34-0400 Diastolic blood mm[Hg]Pee Lakhani MD Work Phone: 1(419)[address] [place], [place] 4573208-14-2025 11:34-0400 Heart rate60 /Galo Lakhani MD Work Phone: 1(419)[address] [place], [place] 4573208-14-2025 11:34-0400 Respiratory rate15 /Galo Lakhani MD Work Phone: 1(419)[address] [place], [place] 4573208-14-2025 11:34-0400 SaO2% (BldA) [Mass fraction]97 %Pee Lakhani MD Work Phone: 1(419)[address] [place], [place] 4573208-14-2025 11:34-0400 Systolic blood xunqhguh164 mm[Hg]Pee Lakhani MD Work Phone: 1(419)[address] [place], [place] 4573208-14-2025 04:26-0400 Body kgPee Lakhani MD Work Phone: 1(419)[address] [place], [place] 4573208-14-2025 04:00-0400 Body mchzatvilpc46.6 [degF]Pee Lakhani MD Work Phone: 1(419)[address] [place], [place] 4573208-12-2025 08:12-0400 Body oplcmx091.88 cmPee Lakhani MD Work Phone: 1(419)[address] [place], [place] 4573206-01-2025 08:24-0400 Body zklahikzxdo89.4 [degF]Pee Lakhani MD Work Phone: 1(419)[address] [place], [place] 4573206-01-2025 08:24-0400 Diastolic blood mm[Hg]Pee Lakhani MD Work Phone: 1(419)[address]06-01-2025 08:24-0400 Heart rate73 /Galo Lakhani MD Work Phone: 1(419)[address]06-01-2025 08:24-0400 Respiratory rate20 /Galo Lakhani MD Work Phone: 1(419)[address] [place], [place] 457[address]206-01-2025 08:24-0400 SaO2% (BldA) [Mass fraction]100 %Pee Lakhani MD Work Phone: 1(419)[address] [place], [place] 4573206-01-2025 08:24-0400 Systolic blood mm[Hg]Pee Lakhani MD Work Phone: 1(419)[address] [place], [place] 457[address]206-01-2025 05:53-0400 Body .4 kgDodalia Lakhani MD Work Phone: 1(419)[address] [place], [place] 4573205-29-2025 11:01-0400 Body ggvfmy734.42 cmPee Lakhani MD Work Phone: 1(419)[address] [place], [place] 4573205-21-2025 15:17-0400 Diastolic blood mm[Hg]Pee Lakhani MD Work Phone: 1(419)[address] [place], [place] 457[address]205-21-2025 15:17-0400 Heart rate88 /Galo Lakhani MD Work Phone: 1(419)[address] [place], [place] 457[address]205-21-2025 15:17-0400 Respiratory rate16 /Galo Lakhani MD Work Phone: 1(419)[address] [place], [place] 457[address]205-21-2025 15:17-0400 SaO2% (BldA) [Mass fraction]99 %Pee Lakhani MD Work Phone: 1(419)[address] [place], [place] 457[address]205-21-2025 15:17-0400 Systolic blood dvncbdja986 mm[Hg]Pee Lakhani MD Work Phone: 1(419)[address] [place], [place] 457[address]205-21-2025 12:37-0400 Body cgawwxiaoqq10.8 [degF]Pee Lakhani MD Work Phone: [facility]05-21-2025 06:33-0400 Body slhrac10.5 kgPee Lakhani MD Work Phone: 1(293)[address]05-20-2025 16:50-0400 Inhaled oxygen flow rate8 L/minDoupatsy Lakhani MD Work Phone: [facility]05-20-2025 13:45-0400 Body rlzmhi932.42 cmPee Lakhani MD Work Phone: [facility] Encounters Encounter DateEncounter TypeCare ProviderFacilityStart: 05-22-2025 End: 39-72-1308bhxrrxuztkBWDYMProtestant Deaconess Hospitaltart: 05-22-2025 End: 00-86-4762Mddmbplke for other preprocedural examinationSHolzer Health Systemtart: 05-13-2025 End: 85-89-5855qqnzbulxndOujiunt M Hoy MD Work Phone: [phone]-Bmwzghhky Health OrthopedicsStart: 05-13-2025 End: 45-13-0945Aigjeyz encounter procedureJustbre Samra Brenna [facility] Work Phone: Start: 91-30-2658iobuavtldgZZGQS GRUBBUniBellevue Hospitaltart: 04-24-2025 End: 23-72-4291Mrikze flowsBaptist Medical Center PA Work Phone: [facility]ermatologyStart: 04-24-2025 End: 58-02-2323Qwiaep [facility] PA Work Phone: [facility] DermatologyStart: 04-24-2025 End: 01-26-9012Fybuvl outpatient visit 15 minutesUnicoi County Memorial Hospital PA Work Phone: [facility] DermatologyComment on above:Stasis dermatitis of both legs (Primary Dx); Encounter for removal of sutures; Rash and other nonspecific skin eruptionStart: 04-24-2025 End: 10-87-9262onujigvqbbVYZHA [facility] HE[facility] CENTERMNot AvailableStart: 04-13-2025 End: 84-28-0594Apnpru [facility] PA Work Phone: [facility]ermatologyStart: 04-13-2025 End: 63-11-8327Lulrko [facility] centerheetLima City Hospitalmarcella [facility] PA Work Phone: [facility]ermatologyStart: 04-13-2025 End: 89-59-4797Yxcmuhj encounter procedureRymarcella Wittl.[facility] PA Work Phone: [facility] DermatologyComment on above:Rash and other nonspecific skin eruptionStart: 04-13-2025 End: 30-48-9570lnrksxfksnUAZOD NORTHEIMNot AvailableStart: 63-55-0372inhnrukxvo JYOTI GRUBBUniBellevue Hospitaltart: 03-06-2025 End: 24-94-0291Twfazv [facility] PA Work Phone: [facility]ermatologyStart: 03-06-2025 End: 13-08-8628Cljjjn [facility] PA Work Phone: [facility]ermatologyStart: 03-06-2025 End: 17-83-5160Bioawd outpatient new 30 minutesUnicoi County Memorial Hospital PA Work Phone: [facility] DermatologyComment on above:Rash and other nonspecific skin eruption (Primary Dx)Start: 03-06-2025 End: 69-78-3658ymdcvnpthqRYBOT NORTHEIMNot AvailableStart: 03-04-2025 End: 20-91-4979gczlzgwazmWiygtfl M Hoy MD Work Phone: [facility] Work Phone: Start: 03-04-2025 End: 09-15-8109Mctszgz encounter procedureNishant Ceja [facility] Work Phone: Start: 02-24-2025 End: 85-69-3785nkcxichwqoFtwslvg BlankFacility:[facility] Start: 02-24-2025 End: 57-05-1880Ydmwbugfow and management of inpatientJustin Samra Ceja -[address] [place] [address] Surgical Work Phone: Start: 02-24-2025 End: 65-37-5062wsnedzbchnq encounterPee Lakhani MD Work Phone: [facility] Work Phone: Start: 29-46-2501Rmb-patient / Non-visitMiclaura Huang MD-[facility] Work Phone: Start: 63-55-2301dqmxfiodopWEEZ [facility] Hospitaltart: 02-11-2025 End: 61-54-7376pryuumuhgbKquvlex M Hoy MD Work Phone: [facility] Work Phone: Start: 02-11-2025 End: 35-60-4998Ubtzufj encounter procedureJustin Samra Brenna CARBAJAL-[facility] Work Phone: Start: 02-06-2025 End: 72-22-7946Nldflxv encounter procedureJustbre Samra Brenna CARBAJALSC-Ngm-Megezvft Testing Work Phone: Start: 02-06-2025 End: 12-78-1268hclcrcsyyxIqogxzn M Hoy MD Work Phone: [facility] Work Phone: Start: 59-64-7242Rtjkcnowr for preprocedural laboratory examinationJustin Samra CejaAdventhealth Heart Of Florida Physician GroupStart: 25-80-1721hbxuvmnkskQIXRM GRUBBUKettering Healthtart: 01-12-2025 End: 62-73-7910tjbxmlelbbNbktgek M Hoy MD Work Phone: [facility] Work Phone: Start: 01-12-2025 End: 00-27-6602Kiwkkst encounter procedureNishant Samra GarayBrenna [facility] Work Phone: Start: 12-22-2024 End: 18-92-3098gptiryyyysPgcbvdm M Hoy MD Work Phone: [facility] Work Phone: Start: 12-22-2024 End: 17-33-1477Pvhdpdl encounter procedurePee Lakhani MD Work Phone: [facility] Work Phone: Start: 73-71-4105Tjq-patient / Non-visitPee Lakhani MD Work Phone: [facility] Work Phone: Start: 38-57-2490Rpf-patient / Non-visitPee Lakhani MD Work Phone: [facility] Work Phone: Start: 12-03-2024 End: 17-81-5485Rpcvjianhz and management of inpatientPee Lakhani MD Work Phone: [facility] Work Phone: Start: 32-60-7919Vlc-patient / Non-visitPee Lakhani MD Work Phone: [facility] Work Phone: Start: 41-00-7240Fnc-patient / Non-visitPee Lakhani MD Work Phone: [facility] Work Phone: Start: 12-01-2024 End: 31-58-0295Uqwwlwjecj and management of inpatientPee Lakhani MD Work Phone: [facility] Work Phone: Start: 45-56-6592cllosxweyqHWFQ [facility] Hospitaltart: 25-23-1646zjjestqjmaCECLU UBBUniBellevue Hospitaltart: 10-01-2024 End: 16-92-1785saghvohprcIGZDX [facility] Hospitaltart: 25-69-7244kciekopmldZGVFUniversity Hospitals Health Systemtart: 93-34-7156ljmpgsmznyMAYTUniversity Hospitals Health Systemtart: 20-81-5382sryoczdcweECFQP UBBUniBellevue Hospitaltart: 01-08-2023 End: 78-30-7296jidshczzbpSblqorn Vytautas Giedraitis MDFacility:[facility] Start: 12-25-2022 End: 71-29-7768hpnkxbollgSobxrne Vytautas Giedraitis MDFacility:[facility] Start: 11-27-2022 End: 52-68-8162pzmzzwojqtAR PEE HOY .Facility:X4Pjedw: 11-24-2022 End: 44-79-3796nixurqhxmwJG PEE HOY .Facility:J4Aspim: 10-27-2022 End: 57-77-7075ocwxeqxjiwVN ZAIRE SIS .Facility:B5Ofhpk: 10-23-2022 End: 45-60-0606xjhsuovqizAD PEE HOY .Facility:V4Yhqiv: 41-92-9901nhsteiuzxd DR PEE HOY .Facility:N1Mbezn: 44-14-7367fkyghjciruDZ PEE HOY . Facility:T7Urkuv: 76-30-8096jvjgabzggoWD PEE HOY .Facility:X9Qedqg: 85-75-5892togvdblourBH PEE HOY .Facility:S7Xesqb: 04-15-2022 End: 76-71-8950zmesoodmdxAV PEE HOY .Facility:N8Foarm: 03-29-2022 End: 47-98-2793jarrxfdrqgEK PEE HOY .Facility:H5Wvfdd: 03-27-2022 End: 65-76-2164Zkmdrgzbal and management of inpatientDR PEE LAKHANI .Facility:H1 Start: 03-23-2022 End: 58-13-3223hhwsrjmccmLP PEE HOY .Facility:C1Flqko: 03-17-2022 End: 59-06-0915osiwjsfsmeGK PEE HOY .Facility:Q2Ytdgp: 01-24-2022 End: 23-25-1825ptjbuvjbdiPZ PEE LAKHANI .Facility:L7Oojgz: 01-09-2022 End: 44-30-7167bekyksrjqfVS ZAIRE ALEGRE .Facility:H1 Procedures DateProcedureProcedure DetailPerforming ClinicianStart: 83-01-8157ZWOH / NAIL BIOPSYRyjeannette PITTS Work Phone: Start: 92-81-2092Qysjzfki of left total hip arthroplastyPee Lakhani MD Work Phone: Start: 82-35-6767Dquom X-ray of right shoulderDodalia Lakhani MD Work Phone: Start: 87-52-2350Kcoici scan of lower limb veins Pee Lakhani MD Work Phone: Start: 00-68-1906Nzggkblc screenDouglas HoyComment on above:Result Comment: PERFORMED BY: [facility] [address] [place] [address] PATHOLOGIST [employer]INGER CHACORTA DE DIOS M.D.Start: 17-03-1306Fjrel X-ray of right hipDodalia Lakhani MD Work Phone: Start: 06-72-1398Tjcjk X-ray of right hipPee Lakhani MD Work Phone: Plan of Treatment DateCare ActivityDetailAuthorStart: 06-25-2025 End: 91-37-8168Yqcdmie encounter /11/2025 10:50 AM EST [facility] [address] [place] Frances Rosen PA [address] [place] [phone] [facility]ermatologyStart: 04-24-2025 End: 94-08-1123Mufrtgv encounter procedureNOMS Christian DermatologyComment on above:ArrivedStart: 04-13-2025 End: 96-17-4611Bkggwvg encounter procedureNOMS Christian DermatologyComment on above:ArrivedStart: 03-06-2025 End: 24-11-5324Kfzjmqj encounter mgjicgigm93/22/2025 12:20 PM EDT Office [facility] [address] [place], [place] Frances Rosen PA [address] [place] [address] ArrivedNOMS Christian DermatologyComment on above:ArrivedStart: 47-25-5844IsuilzcjcWestern Reserve Hospitaltart: 92-48-3001Oieqprbe to infectious diseases [facility] Vanderbilttart: 33-75-9807Ouoplycb admissionWestern Reserve Hospitaltart: 40-09-7736UjcalcpkrWestern Reserve Hospitaltart: 58-77-6706Tkdpf X-ray of right shoulderXR shoulder RT min 2V*[facility] Hospitaltart: 43-85-6160MO Shoulder - right ViewsOhiohealth Shelby Hospital CenterStart: 40-45-5838JtkmgcxcnWestern Reserve Hospitaltart: 46-44-0132Zjlmagmn admission [facility]: 04-41-4134Uuvrvgcv to clinical behavioral health professional [facility]: 67-02-5941SxpzpzdpwWestern Reserve Hospitaltart: 79-99-1393Lpubnkfw to rehabilitation [facility]: 08-54-2316Omfxmmhm admissionWestern Reserve Hospitaltart: 40-55-2274QjzwpxsjxqjcJtjjpkpspWestern Reserve Hospitaltart: 50-14-6828Ulcepgjvtub of Right Hip Joint with Metal on Polyethylene Synthetic Substitute, Open ApproachReplacement of Right Hip Joint with Metal on Polyethylene Synthetic Substitute, Open ApproachOhiohealth Shelby Hospital CenterDermatopathology examDermatopathology exam Pathology and Cytology Timed Rash and other nonspecific skin eruption ReleaseUpon Ordering for 1 Occurrences starting 04/13/2025[facility] Work Phone: comment on above:Release Upon Ordering for 1 Occurrences starting 04/13/2025Patient EducationOhiohealth Shelby Hospital Ctr Work Phone: Patient referralOhiohealth Shelby Hospital Ctr Work Phone: Payers DatePayer CategoryPayerPolicy [id number] Health Insurance2018MedicareMEDICARE Member Subscriber Plan / Payer (Effective 2018-Present) Name: Rehan Trejo Member ID: [id number] Relation to Subscriber: Self Name: Rehan Trejo Subscriber ID: [id number] Payer ID: STATE Group ID: Not on file Type: Medicare Address: [facility] [place] [id number] [id number] 2.1.478661.3.57[id number] 2..1.938917.3.57[id number] 2..1.570165.3.57[id number] ..1.587864.3.57[id number] 2..1.266342.3.57[id number] 2..1.091203.3.57[id number] 2.16.840.1.791434.3.57[id number] 2.840.1.579878.3.57[id number] 2.840.1.697572.3.57[id number] 2.840.1.304191.3.57[id number] 2.840.1.251403.3.57[id number] 2.0.1.938946.3.57[id number] 2.0.1.796062.3.57[id number] 2.0.1.624255.3.57[id number] 2..1.361573.3.57[id number] 2.840.1.678821.3.57[id number] 2.0.1.184542.3.57[id number] 2.840.1.875229.3.57[id number] 2.0.1.268241.3.57[id number] 2.840.1.395726.3.579.2.1259 [id number] 1960Private Health Ifsthomjz96203806501-41-9501Vcbq-[id number] 2.16.840.1.0[id number] 2.16.840.1.008500.3.579.2.531 [id number] 2.16.840.1.7[id number] 2.16.840.1.8[id number] 2.16.840.1.694531.3.579.2.531 Social History DateTypeDetailFacilityStart: 12-04-2024 End: 73-61-6033Eftrsuf smoking status NHISEx-smoker (finding)[facility]tart: 12-14-2024 End: 83-65-0973KdgPfdx (finding)[facility]tart: 71-42-8044Aun Assigned At BirthTrinity Health System West Campustart: 12-03-2024 End: 19-32-5588CJUM Follow upSDOH Follow upJ.W. [facility] Work Phone: Tobacco smoking status NHISTobacco smoking consumption unknownNONC HealthcareStart: 06-80-2193Qoi assigned at birthNot on fileNONC HealthcareStart: 03-06-2025 End: 04-45-8771Hrollq identityNot on fileJORDAN VALLEY [facility] HealthcareHistory of tobacco use Current smokerNOMS HealthcareHistory of tobacco useCigarette SmokerNONC HealthcareStart: 73-63-4697Noltmzb use and exposureSmokeless tobacco non-user [facility] HealthcareStart: 03-06-2025 End: 34-06-4188Bddoemjkr beverage intakeCurrent drinker of alcohol (finding)[facility] HealthcareStart: 03-06-2025 End: 69-87-7896Bctsgjr of Social functionNONC Healthcare Medical Equipment Procedure CodeEquipment CodeEquipment Original TextEquipment IdentifierDates 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Coated hip femur prosthesis, modular([id number] FDAStart: 12-02-2024 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Acetabular shell ()[id number] FDAStart: 25-77-0730Famodtrtc invasive revision of total replacement of hipCeramic femoral head prosthesis ()[id number] FDAStart: 37-66-5202Xtrikjtio invasive revision of total replacement of hipOrthopaedic bone screw, non-bioabsorbable, sterile()[id number] FDAStart: 14-79-5217Vigguxhwz invasive revision of total replacement of hipOrthopaedic bone screw, non- bioabsorbable, sterile()[id number])[id number])[id number] FDAStart: 61-72-4564Kgtjywelv invasive revision of total replacement of hipNon-constrained polyethylene acetabular liner()[id number])[id number] FDAStart: 12-02-2024 Goals DatePatient GoalDesired Activity/State Functional Status SmpmNwwbrpqplzEsosgaWkdgtumt40-58-0354Zbymdpfjbq statusPatient at Baseline [facility] Work Phone: [phone]htzmuljaj statusPatient is Progressing Toward BaselineJ.W. Ruby Memorial Hospital Work Phone: [phone]qglwity statusPatient at Baseline [facility] Work Phone: Mental Status YgmmRukmnnhukwFjjikuJdubflcv32-34-2407Pacxfslft functionCognitive Status Patient at BaselineJ.W. Ruby Memorial Hospital Work Phone: [phone] 400-241106-281799-61-7395Gfpfpiasa functionCognitive Status Patient at BaselineJ.W. Ruby [facility] Hospital Work Phone: [phone]) [phone]weyelp functionCognitive Status Patient at BaselineJ.W. Ruby [facility] Hospital Work Phone: Clinical Notes 10-24-2022 to 11-07-2025 Note Date & AbsvLwgoJbfaotil80-90-8568 NoteUT Cardiology - [facility] Subjective Rehan Trejo is a 60 y.o. year old male [...] visit. He reports significant dyspnea on exertion with minimal activities. He is [...] Diagnosis Date COPD (chronic obstructive pulmonary disease) ([facility]) Hyperlipidemia Hypertension Seizures ([facility]) Syncope Past Surgical History: Procedure Laterality Date [...] Drug use: Never Allergies Allergies Allergen Reactions [place] Anaphylaxis Penicillins Angioedema Procaine Unknown Medications Current Outpatient Medications: albuterol 90 mcg/actuation inhaler, Inhale 2 puff (more content not included)... [facility] History of Present illness Narrative* GISSELLE Vásquez [...] Posterior, Right Forearm - Posterior, Right UpperBack [place] patches and plaques Discussed with patient that [...] - Anterior, Right Lower Leg - Anterior [place] scaly plaques in areas of edema The [...] Next Visit: 4-6 weeks documented in this encounterCedar County Memorial HospitalZxytjjyrlt74-14-8712 History of Present illness Narrative* GISSELLE Vásquez [...] SKIN ERUPTION Left Lower Leg - Anterior [place] patches and plaques Biopsy today, see procedure [...] Next Visit: Suture removal documented in this encounterCedar County Memorial HospitalTstlsvjpbn80-59-9529 History of Present illness Narrative* GISSELLE Vásquez [...] Next Visit: 3-4 weeks documented in this encounterCedar County Memorial HospitalTvliamjxsz13-06-7866 Progress note Author Ammon Huang [facility] ShawNote Date/TimeAugust 2024 9:22[place] [address] Infect. Disease Progress Note Signed Patient: Rehan Trejo MR#: [id number] : 1965 Acct:[id number] Age/Sex: 60 / M Adm Date: 5 Loc: 4N Room: [address] [place] [address] Type: ADM INOo Attending Dr: Nishant Ceja [...] 125 Mcg Tablet) 250 mcg PO DAILY@0630 [facility] Stop: 02/25/26 09:59 Last Admin: 02/26/25 04:31 Dose: 250 mcg Melatonin (Melatonin 3 Mg Tablet) 12 mg PO QHS [facility] Stop: 02/25/26 21:59 Last Admin: 02/25/25 20:59 Dose: 12 mg Metoprolol Tartrate (Metoprolol Tartrate 50 Mg Tablet) 50 mg PO BID [facility] Stop: 02/25/26 08:59 Last Admin: 02/25/25 20:58 Dose: 50 mg Mineral Oil (Mineral Oil ([place]) 1 Each Enema) 1 each [place] ONCE PRN PRN Reason: Constipation Morphine Sulfate [...] 17 Gm Powd.Pack) 17 gm PO DAILY [facility] Stop: 03/03/25 08:59 Last Admin: 02/25/25 08:07 Dose: Not Given Prochlorperazine Maleate (Prochlorperazine Maleate 5 Mg Tablet) 10 mg PO Q6H PRN PRN Reason: Nausea Stop: 02/23/26 15:37 Senna/Docusate Sodium (Sennosides/Docusate 8.6-50mg 1 Tab Tablet) 2 tab PO DAILY [facility] Stop: 03/26/25 08:59 Last Admin: 02/25/25 [...] <Electronically signed by MD Ammon Huang> 02/26/25921 [facility] Work Phone: 1(575) 348-439508-14-2025 Progress note Author Nishant Ceja [facility] ShawNote Date/TimeAugust 2024 9:04[place] [address] Orthopedic Progress Note Signed Patient: Rehan Trejo MR#: [id number] : 1965 Acct:[id number] Age/Sex: 60 / M Adm Date: 5 Loc: 4N Room: 8F7543-6 Type: ADM INOo Attending Dr: Nishant Ceja [...] social situation yesterday. DC today Documented By: Nsihant Ceja DO 02/26/25 0836 Signed By: <Electronically signed by Nishant Ceja DO> 02/26/25 0904 [facility] Work Phone: 1(263) 197-763808-14-2025 Discharge summary Author Nishant Ceja [facility] ShawNote Date/TimeAugust 2024 8:40[place] [address] Discharge Summary Signed Patient: Rehan Trejo MR#: [id number] : 1965 Acct:[id number] Age/Sex: 60 / M Adm Date: 5 Loc: 4N Room: 6A0697-[address]: Nishant Ceja DO Copies to: MD Nishant Bagley, DO~ Providers Date of Discharge: 02/26/25 Discharging [...] Left Total Hip Arthro(Left) - Nishant Ceja, Discharge Plan Discharge Plan Patient Disposition: Home [...] feel free to call our office at [phone]. You are a priority of ours and we will not be upset with you if you call. Wewould much rather you call to confirmaspects of your recovery process as opposed to possibly hindering your recovery with inappropriate care. We are committed to providing you with the best care possible. Dr. Nishant Ceja [facility] [address] [place] [address] [email or web address] Instructions: Know your Meds, Drugs, Alcohol & [...] signed by Nishant Ceja DO> 02/26/25 0840 [facility] Work Phone: 1(506) 308-752708-14-2025 [place] [address] Infect. Disease Progress Note Signed Patient: Rehan Trejo MR#: [id number] : 1965 Acct:[id number] Age/Sex: 60 / M Adm Date: 5 Loc: 4N Room: [address] [place] [address] Type: ADM INOo Attending Dr: Nishant Ceja [...] 125 Mcg Tablet) 250 mcg PO DAILY@0630 [facility] Stop: 02/25/26 09:59 Last Admin: 02/26/25 04:31 Dose: 250 mcg Melatonin (Melatonin 3 Mg Tablet) 12 mg PO QHS [facility] Stop: 02/25/26 21:59 Last Admin: 02/25/25 20:59 Dose: 12 mg Metoprolol Tartrate (Metoprolol Tartrate 50 Mg Tablet) 50 mg PO BID [facility] Stop: 02/25/26 08:59 Last Admin: 02/25/25 20:58 Dose: 50 mg Mineral Oil (Mineral Oil ([place]) 1 Each Enema) 1 each [place] ONCE PRN PRN Reason: Constipation Morphine Sulfate [...] 17 Gm Powd.Pack) 17 gm PO DAILY [facility] Stop: 03/03/25 08:59 Last Admin: 02/25/25 08:07 Dose: Not Given Prochlorperazine Maleate (Prochlorperazine Maleate 5 Mg Tablet) 10 mg PO Q6H PRN PRN Reason: Nausea Stop: 02/23/26 15:37 Senna/Docusate Sodium (Sennosides/Docusate 8.6-50mg 1 Tab Tablet) 2 tab PO DAILY [facility] Stop: 03/26/25 08:59 Last Admin: 02/25/25 [...] Ammon Huang MD 02/26/25917 Signed By: 02/26/25921 [facility]08-14-2025 [place] [address] Orthopedic Progress Note Signed Patient: Rehan Trejo MR#: [id number] : 1965 Acct:[id number] Age/Sex: 60 / M Adm Date: 5 Loc: 4N Room: 0D9200-2 Type: ADM INOo Attending Dr: Nishant Ceja [...] once this is cleared up. Wasunable to [place] due to social situation yesterday. DC today Documented By: Nishant Ceja DO 02/26/25 0836 Signed By: 02/26/25 0904 [facility]08-14-2025 [place] [address] Discharge Summary Signed Patient: Rehan Trejo MR#: [id number] : 1965 Acct:[id number] Age/Sex: 60 / M Adm Date: 5 Loc: 4N Room: 7J7991-[address]: Nishant Ceja DO Copies to: MD Nishant Bagley DO~ Providers Date of Discharge: 02/26/25 Discharging Provider: Nishant Ceja Primary Care Provider: Pee Lakhani Consults: 02/24/25 10:24 Consult to Infectious Diseases Routine Comment: Consulting Provider: ANASTACIA - Infectious Disease Reason For Exam: RLE [...] OR Left Total Hip Arthro(Left) - Nishant Ceja DO Discharge Plan Discharge Plan Patient Disposition: [...] feel free to call our office at [phone]. You are a priority of ours and we will not be upset with you if you call. Wewould much rather you call to confirmaspects of your recovery process as opposed to possibly hindering your recovery with inappropriate care. We are committed to providing you with the best care possible. Dr. Nishant Ceja [facility] [address] [place], [place] [id number] [email or web address] Instructions: Know your Meds, Drugs, Alcohol & [...] By: Nishant Ceja DO 02/26/2538 Signed By: 02/26/2540 [facility]08-13-2025 Progress note Author Nishant Ceja [facility] ShawNote Date/TimeAugust 2024 10:09am [place] [address] Orthopedic Progress Note Signed Patient: Rehan Trejo MR#: [id number] : 1965 Acct:[id number] Age/Sex: 60 / M Adm Date: 5 Loc: Room: 7Q3388-7 Type: ADM INOo Attending Dr: Nishant Ceja [...] 53.6 49.4 Lymph % (Auto) 29.7 31.0 Edwards % (Auto) 8.8 10.5 Eos % (Auto) 6.7 8.6 Baso % (Auto) 1.2 0.5 Nucleat RBC Rel Count 0.2 0.1 Neut # (Auto) 4.7 3.4 Lymph # (Auto) 2.6 2.1 Edwards # (Auto) 0.8 0.7 Eos # (Auto) [...] <Electronically signed by Nishant Ceja DO> 02/25/25 6174 [facility] Work Phone: 1(168) 339-428208-13-2025 Progress note Author Ammon Huang [facility] ShawNote Date/TimeAugust 2024 8:54[place] [address] Infect. Disease Progress Note Signed Patient: Rehan Trejo MR#: [id number] : 1965 Acct:[id number] Age/Sex: 60 / M Adm Date: 5 Loc: 4N Room: 3P1768-4 Type: ADM INOo Attending Dr: Nishant Ceja [...] 10 Mg Tablet) 10 mg PO HS [facility] Stop: 02/25/26 21:59 Calcium Carbonate (Calcium [...] 125 Mcg Tablet) 250 mcg PO DAILY@0630 [facility] Stop: 02/25/26 09:59 Melatonin (Melatonin 3 Mg Tablet) 12 mg PO QHS [facility] Stop: 02/25/26 21:59 Metoprolol Tartrate (Metoprolol Tartrate 50 Mg Tablet) 50 mg PO BID [facility] Stop: 02/25/26 08:59 Last Admin: 02/25/25 08:05 Dose: 50 mg Mineral Oil (Mineral Oil ([place]) 1 Each Enema) 1 each [place] ONCE PRN PRN Reason: Constipation Morphine Sulfate [...] 17 Gm Powd.Pack) 17 gm PO DAILY [facility] Stop: 03/03/25 08:59 Last Admin: 02/25/25 08:07 Dose: Not Given Prochlorperazine Maleate (Prochlorperazine Maleate 5 Mg Tablet) 10 mg PO Q6H PRN PRN Reason: Nausea Stop: 02/23/26 15:37 Senna/Docusate Sodium (Sennosides/Docusate 8.6-50mg 1 Tab Tablet) 2 tab PO DAILY [facility] Stop: 03/26/25 08:59 Last Admin: 02/25/25 08:07 Dose: Not Given Sodium Chloride (Sodium Chloride 0.9 % 10 Ml Syringe) 0 ml IV-PUSH PRN PRN PRN Reason: Flush Stop: 02/24/26 07:30 Tamsulosin HCl (Tamsulosin 0.4 Mg Cap.Er.24h) 0.4 mg PO DAILY [facility] Stop: 02/25/26 08:59 Last Admin: 02/25/25 08:06 [...] By: <Electronically signed by MD Ammon Huang> 02/25/2554 [facility] Work Phone: 1(825) 419-354508-13-2025 [place] [address] Orthopedic Progress Note Signed Patient: Rehan Trejo MR#: [id number] : 1965 Acct:[id number] Age/Sex: 60 / M Adm Date: 5 Loc: 4N Room: [address] [place] [address] Type: ADM INOo Attending Dr: Nishant Ceja [...] 53.6 49.4 Lymph % (Auto) 29.7 31.0 Edwards % (Auto) 8.8 10.5 Eos % (Auto) 6.7 8.6 Baso % (Auto) 1.2 0.5 Nucleat RBC Rel Count 0.2 0.1 Neut # (Auto) 4.7 3.4 Lymph # (Auto) 2.6 2.1 Edwards # (Auto) 0.8 0.7 Eos # (Auto) [...] DO 02/25/25 1007 Signed By: 02/25/25 1009 [facility]08-13-2025 [place] [address] Infect. Disease Progress Note Signed Patient: Rehan Trejo MR#: [id number] : 1965 Acct:[id number] Age/Sex: 60 / M Adm Date: 5 Loc: 4N Room: 7N7437-1 Type: ADM INOo Attending Dr: Nishant Ceja [...] 100 Mg Capsule) 100 mg PO BID [facility] Stop: 02/23/26 20:59 Last Admin: 02/25/25 08:06 Dose: Not Given Ferrous Sulfate (Ferrous Sulfate 324 Mg Tablet.Dr) 324 mg PO BID.WITH.MEALS [facility] Stop: 02/23/26 16:59 Last Admin: 02/25/25 08:05 Dose: 324 mg Isosorbide Mononitrate (Isosorbide Mononitrate 24hr Er 30 Mg Tab.Er.24h) 30 mg PO QAM [facility] Stop: 02/25/26 08:59 Last Admin: 02/25/25 08:06 Dose: 30 mg Levothyroxine Sodium (Levothyroxine 125 Mcg Tablet) 250 mcg PO DAILY@0630 [facility] Stop: 02/25/26 09:59 Melatonin (Melatonin 3 Mg Tablet) 12 mg PO QHS [facility] Stop: 02/25/26 21:59 Metoprolol Tartrate (Metoprolol Tartrate 50 Mg Tablet) 50 mg PO BID [facility] Stop: 02/25/26 08:59 Last Admin: 02/25/25 08:05 Dose: 50 mg Mineral Oil (Mineral Oil ([place]) 1 Each Enema) 1 each [place] ONCE PRN PRN Reason: Constipation Morphine Sulfate [...] 17 Gm Powd.Pack) 17 gm PO DAILY [facility] Stop: 03/03/25 08:59 Last Admin: 02/25/25 08:07 Dose: Not Given Prochlorperazine Maleate (Prochlorperazine Maleate 5 Mg Tablet) 10 mg PO Q6H PRN PRN Reason: Nausea Stop: 02/23/26 15:37 Senna/Docusate Sodium (Sennosides/Docusate 8.6-50mg 1 Tab Tablet) 2 tab PO DAILY [facility] Stop: 03/26/25 08:59 Last Admin: 02/25/25 [...] 100 Mg Tablet) 200 mg PO HS [facility] Stop: 02/25/26 21:59 Tramadol HCl (Tramadol 50 Mg Tablet) 50 mg PO Q6H PRN PRN Reason: Pain Scale 1 - 5 Stop: 08/22/25 15:37 Triamcinolone Acetonide (Triamcinolone 0.5% Cream 15 Gm Tube) 1 applic TOPICAL BID [facility] Stop: 02/24/26 11:29 Last Admin: 02/25/25 08:07 Dose: 1 applic A&P - Infectious Disease Assessment/Plan (1) Stasis dermatitis: Plan To be dc on triamcinolone cream and to use on the RLE BID for 2 weeks. Avoid scratching. Documented By: Ammon Huang MD 02/25/25 0847 Signed By: 02/25/25 0854 [facility]08-12-2025 Consult note Author Ammon Huang [facility] ShawNote Date/TimeAugust 2024 10:46am [place] [address] Infect. Disease Consult Note Signed Patient: Rehan Trejo MR#: [id number] : 1965 Acct:[id number] Age/Sex: 60 / M Adm Date: 5 Loc: Room: 5N3278-0 Type: REG [facility] Attending Dr: Nishant Ceja DO Copies to: [...] negative unless noted below or in HPI [facility] Medical History (Updated 02/24/25 @ 10:45 by [...] 500 Mg Tablet) 500 mg PO BID.WITH.MEALS [facility] Stop: 02/23/26 16:59 Aspirin (Aspirin 81 Mg Tablet.) 81 mg PO BID [facility] Stop: 02/23/26 20:59 Diphenhydramine HCl (Diphenhydramine 25 Mg Capsule) 25 mg PO Q6H PRN PRN Reason: Itching Stop: 02/23/26 15:37 Docusate Sodium (Docusate 100 Mg Capsule) 100 mg PO BID [facility] Stop: 02/23/26 20:59 Ferrous Sulfate (Ferrous Sulfate 324 Mg Tablet.) 324 mg PO BID.WITH.MEALS [facility] Stop: 02/23/26 16:59 Lactated Ringer's (Lactated Ringers) 1,000 mls @ 75 mls/hr IV .[id number] [facility] Stop: 02/23/26 15:44 Lactated Ringer's (Lactated Ringers) 1,000 mls @ 20 mls/hr IV .Q24H [facility] Stop: 02/25/25 08:29 Last Infusion: 02/24/25 09:20 Dose: 20 mls/hr Mineral Oil (Mineral Oil ([place]) 1 Each Enema) 1 each [place] ONCE PRN PRN Reason: Constipation Morphine Sulfate [...] / 100 mls/hr IV .Q24H [facility] Rx#: [id number] Other: Weight 93.44 kg Date of Last [...] <Electronically signed by MD Ammon Huang> 02/24/25 1047 [facility] Work Phone: 1(508) 587-855408-12-2025 Evaluation note* Diagnosis Onset Date Resolution Status [...] post total hip replacement, rightnoneactiveOctober 2024 2:41pm [facility] Work Phone: 1(750) 190-169308-12-2025 History and physical note Author Nishant Ceja [facility] ShawNote Date/TimeAugust 2024 9:35[place] [address] Orthopedic Surgery H&P Signed Patient: Rehan Trejo MR#: [id number] : 1965 Acct:[id number] Age/Sex: 60 / M Adm Date: 5 Loc: [place] Room: Type: [facility] Attending Dr: Nishant Ceja DO Copies to: [...] using some topical steroid cream without resolution [facility] Medical History (Updated 02/24/25 @ 09:35 by [...] signed by Nishant Ceja DO> 02/24/25 0935 [facility] Work Phone: 1(650) 954-567008-12-2025 [place] [address] Infect. Disease Consult Note Signed Patient: Rehan Trejo MR#: M [id number] : 1965 Acct:[id number] Age/Sex: 60 / M Adm Date: 5 Loc: Room: [address] [place] [address] Type: [facility] Attending Dr: Nishant Ceja DO Copies to: [...] negative unless noted below or in HPI [facility] Medical History (Updated 02/24/25 @ 10:45 by [...] Ringers) 1,000 mls @ 75 mls/hr IV .[id number] [facility] Stop: 02/23/26 15:44 Lactated Ringer's (Lactated Ringers) 1,000 mls @ 20 mls/hr IV .Q24H [facility] Stop: 02/25/25 08:29 Last Infusion: 02/24/25 09:20 Dose: 20 mls/hr Mineral Oil (Mineral Oil ([place]) 1 Each Enema) 1 each [place] ONCE PRN PRN Reason: Constipation Morphine Sulfate [...] 15 Gm Tube) 1 applic TOPICAL BID [facility] Stop: 02/24/26 10:44 Exam Physical Exam Vital [...] / 100 mls/hr IV .Q24H ONE Rx#: [id number] Other: Weight 93.44 kg Date of Last [...] MD 02/24/25 1040 Signed By: 02/24/25 1046 [facility]08-12-2025 [place] [address] Orthopedic Surgery H&P Signed Patient: Rehan Trejo MR#: [id number] : 1965 Acct:[id number] Age/Sex: 60 / M Adm Date: 5 Loc: [place] Room: Type: [facility] Attending Dr: Nishant Ceja DO Copies to: [...] using some topical steroid cream without resolution [facility] Medical History (Updated 02/24/25 @ 09:35 by [...] DO 02/24/25 0933 Signed By: 02/24/25 0935 [facility]05-30-2025 Progress note Author Paco Jimenez [facility] ShawNote Date/TimeMay 2024 1:16pm[place] [address] Physiatry(Rehab) Progress Note Signed Patient: Rehan Trejo MR#: [id number] : 1965 Acct:[id number] Age/Sex: 59 / M Adm Date: 5 Loc: Room: [address] [place] [address] Type: ADM IN Attending Dr: Paco Jimenez [...] at homecaring for his , mother and uftnaf-pd-qyw. Shares insight into mechanism of injury of [...] mg 12/03/24 16:45 Bisacodyl 10 Mg Supp.Rect [place] 12/03/25 16:44 DAILY PRN Constipation Budesonide/Formoterol Fumarate [...] 16:45 Docusate Enema 283 Mg/5 Ml Enema [place] 12/03/25 16:44 DAILY PRN Constipation Isosorbide Mononitrate [...] at least 3 times weekly encounters with graphic pre press trades worker for medical management and for plan of care review / changes. I spent 25 minutes for services, including nudk-jp-kjlc encounter with the patient, discussion of the case, plan of care, and exam; and kwnvojc-to-lbei activities, such as reviewing pertinent sap security consultant documentation, recent therapynotes, laboratory and radiology studies, and discussion of case with care team including physician, nursing, caser up, and therapists. More than 50 % of time was spent on patient/family counseling or coordination ofcare. Documented By: Paco Jimenez MD 1314 Signed By: <Electronically signed by Paco Jimenez MD> 12/12/24 1316 [facility] Work Phone: 1(417) 827-742405-30-2025 [place] [address] Physiatry(Rehab) Progress Note Signed Patient: Rehan Trejo MR#: [id number] : 1965 Acct:[id number] Age/Sex: 59 / M Adm Date: 5 Loc: Room: 3H0334-0 Type: ADM IN Attending Dr: Paco Jimenez [...] course complicated by subcapital femoral neck fracture AVNBrennan Van was examined this morning seatedupright on side of bed with physical therapy session in progress. Mentions responsibilities at homecaring for his , mother and lugeve-ji-xvd. Shares insight into mechanism of injury of [...] mg 12/03/24 16:45 Bisacodyl 10 Mg Supp.Rect OH 12/03/25 16:44 DAILY PRN Constipation Budesonide/Formoterol Fumarate [...] 16:45 Docusate Enema 283 Mg/5 Ml Enema OH 12/03/25 16:44 DAILY PRN Constipation Isosorbide Mononitrate [...] at least 3 times weekly encounters with graphic pre press trades worker for medical management and for plan of care review / changes. I spent 25 minutes for services, including hgxr-td-fyig encounter with the patient, discussion of the case, plan of care, and exam; and kinsnmf-jw-tjup activities, such as reviewing pertinent sap security consultant documentation, recent therapynotes, laboratory and radiology studies, and discussion of case with care team including physician, nursing, caser up, and therapists. More than 50 % of time was spent on patient/family counseling or coordination ofcare. Documented By: Paco Jimenez MD 1314 Signed By: 12/12/24 1316 [facility]05-30-2025 Radiology Diagnostic study note [facility] [address] Ultrasound Report Signed Patient: Rehan Trejo MR#: [id number] : 1965 Acct:[id number] Age/Sex: 59 / M ADM Date: 5 Loc: Room: [address] [place] [address] Type: ADM IN Attending Dr: Paco Jimenez [...] Donnelly M.D. 12/12/2024 11:17 AM Dictation Location: [facility]04 Tech: Ana Rosa Esqueda Transcribed By: NORI 12/12/241116 Dictated By: Zaire Donnelly MD 12/12/241116 Signed By: 12/12/241116 [facility] Work Phone: [phone] Progress note Author Reshma Marin [facility] ShawNote Date/TimeMay 2024 5:24pm[place] [address] Hospitalist Progress Note Signed Patient: Rehan Trejo MR#: [id number] : 1965 Acct:[id number] Age/Sex: 59 / M Adm Date: 5 Loc: Room: [address] [place] [address] Type: ADM IN Attending Dr: Paco Jimenez [...] mg 12/03/24 16:45 Bisacodyl 10 Mg Supp.Rect [place] 12/03/25 16:44 DAILY PRN Constipation Budesonide/Formoterol Fumarate [...] 16:45 Docusate Enema 283 Mg/5 Ml Enema OH 12/03/25 16:44 DAILY PRN Constipation Isosorbide Mononitrate [...] 2. Hyperlipidemia?atorvastatin 3. COPD/asthma?budesonide/formoterol 4. CAD history NC?isosorbide, metoprolol, aspirin 5. Hypothyroid?levothyroxine 6. BPH?tamsulosin 7. Seizures?Topiramate Documented By: Reshma Marin APRN 12/11/24 1633 Signed By: <Electronically signed by KB Marin> 12/11/24 1646 <Electronically signed by Connor Oliveros DO> 12/11/24 1724 [facility] Work Phone: [phone]) [phone] [place] [address] Hospitalist Progress Note Signed Patient: Rehan Trejo MR#: [id number] : 1965 Acct:[id number] Age/Sex: 59 / M Adm Date: 5 Loc: Room: [address] [place] [address] Type: ADM IN Attending Dr: Paco Jimenez [...] mg 12/03/24 16:45 Bisacodyl 10 Mg Supp.Rect [place] 12/03/25 16:44 DAILY PRN Constipation Budesonide/Formoterol Fumarate [...] 16:45 Docusate Enema 283 Mg/5 Ml Enema OH 12/03/25 16:44 DAILY PRN Constipation Isosorbide Mononitrate [...] 2. Hyperlipidemia?atorvastatin 3. COPD/asthma?budesonide/formoterol 4. CAD history NC?isosorbide, metoprolol, aspirin 5. Hypothyroid?levothyroxine 6. BPH?tamsulosin 7. Seizures?Topiramate Documented By: Reshma Marin APRN 12/11/24 1633 Signed By: 12/11/24 1646 12/11/24 1724 [facility]05-29-2025 Progress note Author Paco Jimenez [facility] ShawNote Date/TimeMay 2024 12:44pmBow[place] [address] Physiatry(Rehab) Progress Note Signed Patient: Rehan Trejo MR#: [id number] : 1965 Acct:[id number] Age/Sex: 59 / M Adm Date: 5 Loc: Room: 5A9299-5 Type: ADM IN Attending Dr: Paco Jimenez [...] at homecaring for his , mother and dpjgsr-yy-jty. Shares insight into mechanism of injury of [...] mg 12/03/24 16:45 Bisacodyl 10 Mg Supp.Rect [place] 12/03/25 16:44 DAILY PRN Constipation Budesonide/Formoterol Fumarate [...] 16:45 Docusate Enema 283 Mg/5 Ml Enema OH 12/03/25 16:44 DAILY PRN Constipation Isosorbide Mononitrate [...] at least 3 times weekly encounters with graphic pre press trades worker for medical management and for plan of care review / changes. I spent 25 minutes for services, including jddl-wf-jwsl encounter with the patient, discussion of the case, plan of care, and exam; and gzjxxtc-tx-idff activities, such as reviewing pertinent sap security consultant documentation, recent therapynotes, laboratory and radiology studies, and discussion of case with care team including physician, nursing, caser up, and therapists. More than 50 % of [...] signed by MD ANÍBAL Tracy> 12/11/24 1151 [facility] Work Phone: 1(783) 497-142105-29-2025 [place] [address] Physiatry(Rehab) Progress Note Signed Patient: Rehan Trejo MR#: [id number] : 1965 Acct:[id number] Age/Sex: 59 / M Adm Date: 5 Loc: Room: 0X1838-7 Type: ADM IN Attending Dr: Paco Jimenez [...] course complicated by subcapital femoral neck fracture AVNBrennan Van was examined this morning seatedupright on side of bed with physical therapy session in progress. Mentions responsibilities at homecaring for his , mother and mduzvb-zi-wkn. Shares insight into mechanism of injury of [...] mg 12/03/24 16:45 Bisacodyl 10 Mg Supp.Rect OH 12/03/25 16:44 DAILY PRN Constipation Budesonide/Formoterol Fumarate [...] 16:45 Docusate Enema 283 Mg/5 Ml Enema OH 12/03/25 16:44 DAILY PRN Constipation Isosorbide Mononitrate 30 mg 12/04/24 09:00 12/11/24 07:59 Isosorbide Mononitrate 24hr Er 30 Mg Tab.Er.24h PO 12/04/25 08:59 30 mg QAM CHRISTOPHER Administration Lactulose 30 gm 12/03/24 16:45 Lactulose 20 Gm/30 Ml Udc PO 12/03/25 16:44 DAILY PRN Constipation Levothyroxine Sodium 250 mcg 12/04/24 06:30 12/11/24 05:50 Levothyroxine 125 Mcg Tablet PO 12/04/25 06:29 250 mcg DAILY.0630 [facility] Administration Melatonin 10 mg 12/03/24 22:00 12/10/24 [...] at least 3 times weekly encounters with graphic pre press trades worker for medical management and for plan of care review / changes. I spent 25 minutes for services, including nqiu-ia-besg encounter with the patient, discussion of the case, plan of care, and exam; and qilwryb-zi-izvo activities, such as reviewing pertinent sap security consultant documentation, recent therapynotes, laboratory and radiology studies, and discussion of case with care team including physician, nursing, caser up, and therapists. More than 50 % of [...] 1127 Signed By: 12/11/24 1244 12/11/24 1151 [facility]05-28-2025 Progress note Author Gloria Arrington [facility] ShawNote Date/TimeMay 2024 1:56pmDylan Ville [id number] Physiatry(Rehab) Progress Note Signed Patient: Rehan Trejo MR#: [id number] : 1965 Acct:[id number] Age/Sex: 59 / M Adm Date: 5 Loc: Room: 1Y5497-9 Type: ADM IN Attending Dr: Paco Jimenez [...] at homecaring for his , mother and qaoyab-fn-von. Shares insight into mechanism of injury of [...] mg 12/03/24 16:45 Bisacodyl 10 Mg Supp.Rect OH 12/03/25 16:44 DAILY PRN Constipation Budesonide/Formoterol Fumarate 2 puff 12/04/24 21:00 12/10/24 06:19 Budesonide/Formoterol 160-4.5 Mcg 60 Puff/6 Gm Hfa.Aer.Ad INHALATION 12/04/25 20:59 2 puff BID CHRISOTPHER Administration Calcium Carbonate 1 tab 12/03/24 21:00 [...] 16:45 Docusate Enema 283 Mg/5 Ml Enema OH 12/03/25 16:44 DAILY PRN Constipation Doxycycline Hyclate [...] at least 3 times weekly encounters with graphic pre press trades worker for medical management and for plan of care review / changes. I spent 19 minutes for services, including tchd-yi-ozeo encounter with the patient, discussion of the case, plan of care, and exam; and epeeoov-zj-laan activities, such as reviewing pertinent sap security consultant documentation, recent therapynotes, laboratory and radiology studies, and discussion of case with care team including physician, nursing, caser up, and therapists. More than 50 % of time was spent on patient/family counseling or coordination ofcare. <Statement entered by Paco Jimenez MD - 12/10/24 13:56> Patient was personally seen by me, Dr. Jimenez, on the day of encounter, reviewed the history and the relevant portions of the chart, including current orders, allied health and sap security consultant notes, labs/imaging and performed ulloa elements of exam and I formulated the plan of care and facilitated the medical decision making. I completed a substantive portion of this encounter, the medical decision makingportion of this note in its entirety, including Allied health note review, nursing note review, sap security consultant note review,discussion with nursing and case management, and more than 50% of my time was spent on counseling and coordination of care, time spent 20 minutes Documented By: Gloria Arrington APRN 12/10/24 0 959 Signed By: <Electronically signed by KB Arrington> 12/10/24 1003 <Electronically signed by Paco Jimenez MD> 12/10/24 0782 [facility] Work Phone: 1(576) 680-606505-28-2025 [place] [address] Physiatry(Rehab) Progress Note Signed Patient: Rehan Trejo MR#: [id number] : 1965 Acct:[id number] Age/Sex: 59 / M Adm Date: 5 Loc: Room: 6L7881-9 Type: ADM IN Attending Dr: Paco Jimenez [...] at homecaring for his , mother and mfplzu-yw-xdp. Shares insight into mechanism of injury of [...] mg 12/03/24 16:45 Bisacodyl 10 Mg Supp.Rect OH 12/03/25 16:44 DAILY PRN Constipation Budesonide/Formoterol Fumarate [...] 16:45 Docusate Enema 283 Mg/5 Ml Enema OH 12/03/25 16:44 DAILY PRN Constipation Doxycycline Hyclate [...] at least 3 times weekly encounters with graphic pre press trades worker for medical management and for plan of care review / changes. I spent 19 minutes for services, including mpce-rt-bbwa encounter with the patient, discussion of the case, plan of care, and exam; and yaonlqy-kx-oahh activities, such as reviewing pertinent sap security consultant documentation, recent therapynotes, laboratory and radiology studies, and discussion of case with care team including physician, nursing, caser up, and therapists. More than 50 % of time was spent on patient/family counseling or coordination ofcare. Patient was personally seen by me, Dr. Jimenez, on the day of encounter, reviewed the history and the relevant portions of the chart, including current orders, allied health and sap security consultant notes, labs/imaging and performed ulloa elements of exam and I formulated the plan of care and facilitated the medical decision making. I completed a substantive portion of this encounter, the medical decision makingportion of this note in its entirety, including Allied health note review, nursing note review, sap security consultant note review,discussion with nursing and case management, and more than 50% of my time was spent on counseling and coordination of care, time spent 20 minutes Documented By: Gloria Arrington APRN 12/10/24 0 959 Signed By: 12/10/24 1003 12/10/24 1356 [facility]05-28-2025 Progress note Author Gloria Arrington [facility] ShawNote Date/TimeMay 2024 11:17[place] [address] Physiatry(Rehab) Progress Note Signed Patient: Rehan Trejo MR#: [id number] : 1965 Acct:[id number] Age/Sex: 59 / M Adm Date: 5 Loc: Room: 6N3412-6 Type: ADM IN Attending Dr: Paco Jimenez [...] at homecaring for his , mother and lfzjwx-oa-muq. Shares insight into mechanism of injury of [...] mg 12/03/24 16:45 Bisacodyl 10 Mg Supp.Rect OH 12/03/25 16:44 DAILY PRN Constipation Budesonide/Formoterol Fumarate [...] 16:45 Docusate Enema 283 Mg/5 Ml Enema OH 12/03/25 16:44 DAILY PRN Constipation Doxycycline Hyclate [...] at least 3 times weekly encounters with graphic pre press trades worker for medical management and for plan of care review / changes. I spent 21 minutes for services, including cydu-na-yzvt encounter with the patient, discussion of the case, plan of care, and exam; and payaqoj-kq-vouk activities, such as reviewing pertinent sap security consultant documentation, recent therapynotes, laboratory and radiology studies, and discussion of case with care team including physician, nursing, caser up, and therapists. More than 50 % of time was spent on patient/family counseling or coordination ofcare. <Statement entered by Jose Antonio Camara MD - 12/10/24 11:17> This documentation has been reviewed and approved. I reviewed the history and the relevant portions of the chart, including currentorders, allied health and sap security consultant notes, labs/imaging and plan of care as above. Documented By: Gloria Arrington APRN 12/05/24 1 144 Signed By: <Electronically signed by KB Arrington> 12/05/24 1243 <Electronically signed by Jose Antonio Camara MD> 12/10/24 5957 [facility] Work Phone: 1(925) 937-919705-28-2025 Progress note Author Gloria Arrington [facility] ShawNote Date/TimeMay 2024 10:53[place] [address] Physiatry(Rehab) Progress Note Signed Patient: Rehan Trejo MR#: [id number] : 1965 Acct:[id number] Age/Sex: 59 / M Adm Date: 5 Loc: Room: [address] [place] [address] Type: ADM IN Attending Dr: Paco Jimenez [...] at homecaring for his , mother and rzfkav-um-xsz. Shares insight into mechanism of injury of [...] mg 12/03/24 16:45 Bisacodyl 10 Mg Supp.Rect [place] 12/03/25 16:44 DAILY PRN Constipation Budesonide/Formoterol Fumarate [...] 16:45 Docusate Enema 283 Mg/5 Ml Enema OH 12/03/25 16:44 DAILY PRN Constipation Doxycycline Hyclate [...] at least 3 times weekly encounters with graphic pre press trades worker for medical management and for plan of care review / changes. I spent 19 minutes for services, including npeo-bc-veih encounter with the patient, discussion of the case, plan of care, and exam; and ycfxsiz-ll-lkaz activities, such as reviewing pertinent sap security consultant documentation, recent therapynotes, laboratory and radiology studies, and discussion of case with care team including physician, nursing, caser up, and therapists. More than 50 % of time was spent on patient/family counseling or coordination ofcare. <Statement entered by Jose Antonio Camara MD - 12/10/24 10:53> This documentation has been reviewed and approved. I reviewed the history and the relevant portions of the chart, including currentorders, allied health and sap security consultant notes, labs/imaging and plan of care as above. Documented By: Gloria Arrington APRN 12/08/24 1 103 Signed By: <Electronically signed by KB Arrington> 12/08/24 1105 <Electronically signed by Jose Antonio Camara MD> 12/10/24 1055 [facility] Work Phone: 1(757) 155-657805-28-2025 [place] [address] Physiatry(Rehab) Progress Note Signed Patient: Rehan Trejo MR#: [id number] : 1965 Acct:[id number] Age/Sex: 59 / M Adm Date: 5 Loc: Room: 2R0963-3 Type: ADM IN Attending Dr: Paco Jimenez [...] course complicated by subcapital femoral neck fracture AVNBrennan Van was examined this morning seatedupright on side of bed with physical therapy session in progress. Mentions responsibilities at homecaring for his , mother and uqshbe-gs-mgl. Shares insight into mechanism of injury of [...] mg 12/03/24 16:45 Bisacodyl 10 Mg Supp.Rect OH 12/03/25 16:44 DAILY PRN Constipation Budesonide/Formoterol Fumarate [...] 16:45 Docusate Enema 283 Mg/5 Ml Enema OH 12/03/25 16:44 DAILY PRN Constipation Doxycycline Hyclate [...] at least 3 times weekly encounters with graphic pre press trades worker for medical management and for plan of care review / changes. I spent 21 minutes for services, including qjqr-mt-vmdq encounter with the patient, discussion of the case, plan of care, and exam; and xgbonjz-cs-zyqg activities, such as reviewing pertinent sap security consultant documentation, recent therapynotes, laboratory and radiology studies, and discussion of case with care team including physician, nursing, caser up, and therapists. More than 50 % of time was spent on patient/family counseling or coordination ofcare. This documentation has been reviewed and approved. I reviewed the history and the relevant portions of the chart, including currentorders, allied health and sap security consultant notes, labs/imaging and plan of care as above. Documented By: Gloria Arrington APRN 12/05/24 1 144 Signed By: 12/05/24 1243 12/10/24 1117 [facility]05-28-2025 [place] [address] Physiatry(Rehab) Progress Note Signed Patient: Rehan Trejo MR#: [id number] : 1965 Acct:[id number] Age/Sex: 59 / M Adm Date: 5 Loc: Room: [address] [place] [address] Type: ADM IN Attending Dr: Paco Jimenez [...] at homecaring for his , mother and kfaton-wj-epr. Shares insight into mechanism of injury of [...] mg 12/03/24 16:45 Bisacodyl 10 Mg Supp.Rect OH 12/03/25 16:44 DAILY PRN Constipation Budesonide/Formoterol Fumarate [...] 16:45 Docusate Enema 283 Mg/5 Ml Enema OH 12/03/25 16:44 DAILY PRN Constipation Doxycycline Hyclate [...] at least 3 times weekly encounters with graphic pre press trades worker for medical management and for plan of care review / changes. I spent 19 minutes for services, including xpfd-eu-kgnz encounter with the patient, discussion of the case, plan of care, and exam; and pnzxssk-ml-muwo activities, such as reviewing pertinent sap security consultant documentation, recent therapynotes, laboratory and radiology studies, and discussion of case with care team including physician, nursing, caser up, and therapists. More than 50 % of time was spent on patient/family counseling or coordination ofcare. This documentation has been reviewed and approved. I reviewed the history and the relevant portions of the chart, including currentorders, allied health and sap security consultant notes, labs/imaging and plan of care as above. Documented By: Gloria Arrington APRN 12/08/24 1 103 Signed By: 12/08/24 1105 12/10/24 1053 [facility]05-27-2025 Progress note Author Paco Jimenez [facility] ShawNote Date/TimeMay 2024 12:46pm[place] [address] Physiatry(Rehab) Progress Note Signed Patient: Rehan Trejo MR#: [id number] : 1965 Acct:[id number] Age/Sex: 59 / M Adm Date: 5 Loc: Room: 7J1894-7 Type: ADM IN Attending Dr: Paco Jimenez [...] at homecaring for his , mother and zqluwo-sx-dxj. Shares insight into mechanism of injury of [...] mg 12/03/24 16:45 Bisacodyl 10 Mg Supp.Rect OH 12/03/25 16:44 DAILY PRN Constipation Budesonide/Formoterol Fumarate [...] 16:45 Docusate Enema 283 Mg/5 Ml Enema OH 12/03/25 16:44 DAILY PRN Constipation Doxycycline Hyclate [...] at least 3 times weekly encounters with graphic pre press trades worker for medical management and for plan of care review / changes. I spent 25 minutes for services, including sjfg-aq-zayn encounter with the patient, discussion of the case, plan of care, and exam; and cmkjyyf-nr-hjda activities, such as reviewing pertinent sap security consultant documentation, recent therapynotes, laboratory and radiology studies, and discussion of case with care team including physician, nursing, caser up, and therapists. More than 50 % of time was spent on patient/family counseling or coordination ofcare. Documented By: Paco Jimenez MD 1244 Signed By: <Electronically signed by Paco Jimenez MD> 12/09/24 1246 [facility] Work Phone: 1(633) 894-131505-27-2025 [place] [address] Physiatry(Rehab) Progress Note Signed Patient: Rehan Trejo MR#: [id number] : 1965 Acct:[id number] Age/Sex: 59 / M Adm Date: 5 Loc: Room: 5I9616-6 Type: ADM IN Attending Dr: Paco Jimenez [...] at homecaring for his , mother and wntvbg-bt-lkw. Shares insight into mechanism of injury of [...] 12/03/24 21:00 12/09/24 09:31 Aspirin 81 Mg Tablet.Dr PO 12/03/25 20:59 81 mg BID CHRISTOPHER Administration Atorvastatin Calcium 10 mg 12/03/24 22:00 12/08/24 21:21 Atorvastatin 10 Mg Tablet PO 12/03/25 21:59 10 mg HS CHRISTOPHER Administration Bisacodyl 10 mg 12/03/24 16:45 Bisacodyl 10 Mg Supp.Rect OH 12/03/25 16:44 DAILY PRN Constipation Budesonide/Formoterol Fumarate [...] 16:45 Docusate Enema 283 Mg/5 Ml Enema OH 12/03/25 16:44 DAILY PRN Constipation Doxycycline Hyclate [...] at least 3 times weekly encounters with graphic pre press trades worker for medical management and for plan of care review / changes. I spent 25 minutes for services, including ldya-qi-uptn encounter with the patient, discussion of the case, plan of care, and exam; and wtzeuae-ii-nptt activities, such as reviewing pertinent sap security consultant documentation, recent therapynotes, laboratory and radiology studies, and discussion of case with care team including physician, nursing, caser up, and therapists. More than 50 % of time was spent on patient/family counseling or coordination ofcare. Documented By: Paco Jimenez MD 1244 Signed By: 12/09/24 1246 [facility]05-23-2025 Consult note Author Danyell Daniels [facility] ShawNote Date/TimeMay 2024 10:12[place] [address] Hospitalist Consult Note Signed Patient: Rehan Trejo MR#: [id number] : 1965 Acct:[id number] Age/Sex: 59 / M Adm Date: 5 Loc: Room: 5V5289-7 Type: ADM IN Attending Dr: Paco Jimenez [...] underlying avascular necrosis. He was transferred to [facility] for ongoing orthopedic management. Seen by [...] negative unless noted below or in HPI [facility] Medical History (Updated 12/04/24 @ 17:48 by [...] mg 12/03/24 16:45 Bisacodyl 10 Mg Supp.Rect OH 12/03/25 16:44 DAILY PRN Constipation Budesonide/Formoterol Fumarate [...] 16:45 Docusate Enema 283 Mg/5 Ml Enema OH 12/03/25 16:44 DAILY PRN Constipation Doxycycline Hyclate [...] Tablet PO 12/04/25 06:29 250 mcg DAILY.0630 [facility] Administration Melatonin 10 mg 12/03/24 22:00 12/03/24 [...] % (Auto) 67.2, Lymph % (Auto) 20.4, Edwards % (Auto) 11.8, Eos % (Auto) 0.3, Baso % (Auto) 0.3, Nucleat RBC Rel Count 0.1, Neut # (Auto) 6.1, Lymph # (Auto) 1.9, Edwards # (Auto) 1.1 H, Eos # (Auto) [...] 2. Hyperlipidemia?atorvastatin 3. COPD/asthma?budesonide/formoterol 4. CAD history NC?isosorbide, metoprolol, aspirin 5. Hypothyroid?levothyroxine 6. BPH?tamsulosin 7. [...] PCP and out patient providers to obtain [facility] record entirely to followup on illnesses, symptoms, abnormal findings that I have and have not addressed duringthis encounter and hospitalization in out patient setting. Documented By: Danyell Daniels APRN 11/14 09/09 1538 Signed By: <Electronically signed by KB Daniels> 12/04/24 1750 <Electronically signed by Yonis Alves MD> 12/05/[address] [place] [address] Work Phone: 1(963) 717-955705-23-2025 [place] [address] Hospitalist Consult Note Signed Patient: Rehan Trejo MR#: [id number] : 1965 Acct:[id number] Age/Sex: 59 / M Adm Date: 5 Loc: Room: [address] [place] [address] Type: ADM IN Attending Dr: Paco Jimenez MD Copies to: MD Pee Silva MD Lynn A Stackhouse-Roby, APRN Rafik Massouh, MD~ HPI DATE OF CONSULTATION: 12/04/24 REQUESTING PROVIDER: Paco iJmenez Consult Narrative Reason for Consult: Hypertension HPI: [...] underlying avascular necrosis. He was transferred to [facility] for ongoing orthopedic management. Seen by [...] negative unless noted below or in HPI [facility] Medical History (Updated 12/04/24 @ 17:48 by [...] mg 12/03/24 16:45 Bisacodyl 10 Mg Supp.Rect OH 12/03/25 16:44 DAILY PRN Constipation Budesonide/Formoterol Fumarate [...] Tablet. PO 12/04/25 08:59 75 mg DAILY HCRISTOPHER Administration Diphenhydramine HCl 25 mg 12/03/24 22:00 12/03/24 21:20 Diphenhydramine 25 Mg Capsule PO 12/03/25 21:59 25 mg QHS CHRISTOPHER Administration Docusate Sodium 100 mg 12/03/24 16:45 12/03/24 18:13 Docusate 100 Mg Capsule PO 12/03/25 16:44 100 mg BID PRN Administration Constipation Docusate Sodium 283 mg 12/03/24 16:45 Docusate Enema 283 Mg/5 Ml Enema OH 12/03/25 16:44 DAILY PRN Constipation Doxycycline Hyclate [...] % (Auto) 67.2, Lymph % (Auto) 20.4, Edwards % (Auto) 11.8, Eos % (Auto) 0.3, Baso % (Auto) 0.3, Nucleat RBC Rel Count 0.1, Neut # (Auto) 6.1, Lymph # (Auto) 1.9, Edwards # (Auto) 1.1 H, Eos # (Auto) [...] 2. Hyperlipidemia?atorvastatin 3. COPD/asthma?budesonide/formoterol 4. CAD history NC?isosorbide, metoprolol, aspirin 5. Hypothyroid?levothyroxine 6. BPH?tamsulosin 7. [...] PCP and out patient providers to obtain [facility] record entirely to followup on illnesses, symptoms, abnormal findings that I have and have not addressed duringthis encounter and hospitalization in out patient setting. Documented By: Danyell Daniels APRN 11/14 09/09 1538 Signed By: 12/04/24 1750 12/05/24 [facility]2 [facility]05-22-2025 History and physical note Author Paco Jimenez [facility] ShawNote Date/TimeMay 2024 2:52[place] [address] Physiatry (Rehab) H&P Signed Patient: Rehan Trejo MR#: [id number] : 1965 Acct:[id number] Age/Sex: 59 / M Adm Date: 5 Loc: Room: 1R6481-7 Type: ADM IN Attending Dr: Paco Jimenez [...] at homecaring for his , mother and [id number]. Shares insight into mechanism of injury of [...] and managing to work through the pain. [facility] Medical History COPD (chronic obstructive pulmonary disease) [...] Bisacodyl (Bisacodyl 10 Mg Supp.Rect) 10 mg OH DAILY PRN PRN Reason: Constipation Stop: 12/03/25 [...] Enema 283 Mg/5 Ml Enema) 283 mg OH DAILY PRN PRN Reason: Constipation Stop: 12/03/25 16:44 Doxycycline Hyclate (Doxycycline Hyclate 100 Mg Tablet) 100 mg PO BID [facility] Stop: 12/10/24 20:59 Last Admin: 12/04/24 08:40 Dose: 100 mg Isosorbide Mononitrate (Isosorbide Mononitrate 24hr Er 30 Mg Tab.Er.24h) 30 mg PO QAM CHRISTOPHER Stop: 12/04/25 08:59 Last Admin: 12/04/24 08:41 Dose: 30 mg Lactulose (Lactulose 20 Gm/30 Ml Udc) 30 gm PO DAILY PRN PRN Reason: Constipation Stop: 12/03/25 16:44 Levothyroxine Sodium (Levothyroxine 125 Mcg Tablet) 250 mcg PO DAILY.06 [facility] Stop: 12/04/25 06:29 Last Admin: 12/04/24 05:36 Dose: 250 mcg Melatonin (Melatonin 5 Mg Tablet) 10 mg PO QHS CHRISTOPHER Stop: 12/03/25 21:59 Last Admin: 12/03/24 21:20 Dose: 10 mg Metoprolol Tartrate (Metoprolol Tartrate 50 Mg Tablet) 50 mg PO BID [facility] Stop: 12/03/25 20:59 Last Admin: 12/04/24 [...] 17 Gm Powd.Pack) 17 gm PO DAILY [facility] Stop: 12/04/25 08:59 Last Admin: 12/04/24 08:41 Dose: Not Given Rivaroxaban (Rivaroxaban 10 Mg Tablet) 10 mg PO DAILY [facility] Stop: 12/04/25 08:59 Last Admin: 12/04/24 08:40 Dose: 10 mg Senna/Docusate Sodium (Sennosides/Docusate 8.6-50mg 1 Tab Tablet) 2 tab PO BID [facility] Stop: 12/03/25 20:59 Last Admin: 12/04/24 [...] % (Auto) 67.2 Lymph % (Auto) 20.4 Edwards % (Auto) 11.8 Eos % (Auto) 0.3 Baso % (Auto) 0.3 Nucleat RBC Rel Count 0.1 Neut # (Auto) 6.1 Lymph # (Auto) 1.9 Edwards # (Auto) 1.1 H Eos # (Auto) [...] 24 hour daily monitoring and intervention from Straightening Press Operator as well as other consulting physicians including internal medicine as well as 24 hour daily career and technology education teacher nursing - for medical safe / optimal [...] at least 3 times weekly encounters with graphic pre press trades worker for medical management and for plan of care review / changes. Patient was personally seen by me, Dr. Jimenez, on the day of encounter, reviewed the history and the relevant portions of the chart, including current orders, allied health and sap security consultant notes, labs/imaging and performed ulloa elements of exam and I formulated the plan of care and facilitated the medical decision making and confirmed the resident physician note, as above I completed a substantive portion of this encounter, the medical decision makingportion of this note in its entirety, including Allied health note review, nursing note review, sap security consultant note review,discussion with nursing and case management, and more than 50% of my time was spent on counseling and coordination of care, time spent 40 minutes Documented By: Paco Jimenez MD [id number] Signed By: <Electronically signed by Paco Jimenez MD> 12/04/24 1452 <Electronically signed by MD ANÍBAL Tracy> 12/04/24 1300 [facility] Work Phone: 1(546) 176-280305-22-2025 [place] [address] Physiatry (Rehab) H&P Signed Patient: Rehan Trejo MR#: [id number] : 1965 Acct:[id number] Age/Sex: 59 / M Adm Date: 5 Loc: Room: [address] [place] [address] Type: ADM IN Attending Dr: Paco Jimenez [...] at homecaring for his , mother and [id number]. Shares insight into mechanism of injury of [...] and managing to work through the pain. [facility] Medical History COPD (chronic obstructive pulmonary disease) [...] 500 Mg Tablet) 1,000 mg PO Q8H CHRISTOHPER Stop: 12/03/25 21:59 Last Admin: 12/04/24 05:36 Dose: 1,000 mg Al Hydrox/Mg Hydrox/Simethicone (Mag Hydrox/Al Hydrox/Simeth 30 Ml Udc) 30 ml PO Q4H PRN PRN Reason: Indigestion Stop: 12/03/25 16:44 Ascorbic Acid (Ascorbic Acid 500 Mg Tablet) 500 mg PO BID.WITH.MEALS [facility] Stop: 12/04/25 07:59 Last Admin: 12/04/24 08:40 Dose: 500 mg Aspirin (Aspirin 81 Mg Tablet.Dr) 81 mg PO BID [facility] Stop: 12/03/25 20:59 Last Admin: 12/04/24 08:40 Dose: 81 mg Atorvastatin Calcium (Atorvastatin 10 Mg Tablet) 10 mg PO HS [facility] Stop: 12/03/25 21:59 Last Admin: 12/03/24 21:20 Dose: 10 mg Bisacodyl (Bisacodyl 10 Mg Supp.Rect) 10 mg OH DAILY PRN PRN Reason: Constipation Stop: 12/03/25 16:44 Calcium Carbonate (Calcium Carbonate/Vitamin D3 500 Mg/200 Unit Tablet) 1 tab PO BID [facility] Stop: 12/03/25 20:59 Last Admin: 12/04/24 08:40 Dose: 1 tab Diclofenac Sodium (Diclofenac Sodium 75 Mg Tablet.Dr) 75 mg PO DAILY [facility] Stop: 12/04/25 08:59 Last Admin: 12/04/24 08:40 Dose: 75 mg Diphenhydramine HCl (Diphenhydramine 25 Mg Capsule) 25 mg PO QHS [facility] Stop: 12/03/25 21:59 Last Admin: 12/03/24 21:20 Dose: 25 mg Docusate Sodium (Docusate 100 Mg Capsule) 100 mg PO BID PRN PRN Reason: Constipation Stop: 12/03/25 16:44 Last Admin: 12/03/24 18:13 Dose: 100 mg Docusate Sodium (Docusate Enema 283 Mg/5 Ml Enema) 283 mg OH DAILY PRN PRN Reason: Constipation Stop: 12/03/25 16:44 Doxycycline Hyclate (Doxycycline Hyclate 100 Mg Tablet) 100 mg PO BID [facility] Stop: 12/10/24 20:59 Last Admin: 12/04/24 08:40 Dose: 100 mg Isosorbide Mononitrate (Isosorbide Mononitrate 24hr Er 30 Mg Tab.Er.24h) 30 mg PO QAM [facility] Stop: 12/04/25 08:59 Last Admin: 12/04/24 [...] 4 Mg Tablet) 4 mg PO HS [facility] Stop: 12/03/25 21:59 Last Admin: 12/03/24 21:20 Dose: 4 mg Topiramate (Topiramate 100 Mg Tablet) 100 mg PO QAM [facility] Stop: 12/04/25 08:59 Last Admin: 12/04/24 08:40 Dose: 100 mg Topiramate (Topiramate 100 Mg Tablet) 200 mg PO HS [facility] Stop: 12/03/25 21:59 Last Admin: 12/03/24 [...] % (Auto) 67.2 Lymph % (Auto) 20.4 Edwards % (Auto) 11.8 Eos % (Auto) 0.3 Baso % (Auto) 0.3 Nucleat RBC Rel Count 0.1 Neut # (Auto) 6.1 Lymph # (Auto) 1.9 Edwards # (Auto) 1.1 H Eos # (Auto) [...] Expected Discharge Destination: Home Rehabilitation [facility]: 8. Primary Diagnosis: as above Patient?s/Family?s anticipated [...] 24 hour daily monitoring and intervention from Straightening Press Operator as well as other consulting physicians including internal medicine as well as 24 hour daily career and technology education teacher nursing - for medical safe / optimal [...] at least 3 times weekly encounters with graphic pre press trades worker for medical management and for plan of care review / changes. Patient was personally seen by me, Dr. Jimenez, on the day of encounter, reviewed the history and the relevant portions of the chart, including current orders, allied health and sap security consultant notes, labs/imaging and performed ulloa elements of exam and I formulated the plan of care and facilitated the medical decision making and confirmed the resident physician note, as above I completed a substantive portion of this encounter, the medical decision makingportion of this note in its entirety, including Allied health note review, nursing note review, sap security consultant note review,discussion with nursing and case management, and more than 50% of my time was spent on counseling and coordination of care, time spent 40 minutes Documented By: Paco Jimenez MD [id number] Signed By: 12/04/24 1452 12/04/[address] [place], [place] 8912205-21-2025 Evaluation note* Diagnosis Onset Date Resolution Status Admit Date Alcohol dependence acuteMay 2024 4:33pmBPH (benign prostatic hyperplasia)acuteMay 2024 4:33pmCAD (coronary artery disease)acuteMay 2024 4:33pmCOPD (chronic obstructive pulmonary disease)acuteMay 2024 4:33pmHyperlipidemiaacuteMay 2024 4:33pmHypothyroidismacuteMay 2024 4:33pmAvascular necrosis resolvedMay 2024 4:33pmClosed right hip fractureresolvedMay 2024 4:33pmHTN (hypertension)resolvedMay 2024 4:33pmImpaired mobility and activities of daily livingresolvedMay 2024 4:33pmS/P total hip arthroplastyresolvedMay 2024 4:33pmSeizure [...] post total hip replacement, rightnoneactiveAugust 2024 11:08am [facility] Work Phone: 1(465) 592-818105-19-2025 Evaluation note* Diagnosis Onset Date Resolution Status [...] 2024 4:33pmImpaired mobility and activities of daily livingacuteMay 2024 4:33pmAvascular necrosisresolvedMay 2024 4:33pmClosed right hip fractureresolvedMay 2024 4:33pmHTN (hypertension) resolvedMay 2024 4:33pmS/P total hip arthroplastyresolvedMay 2024 4:33pmSeizure disorderresolvedMay 2024 4:33pm [facility] Work Phone: 1(908) 579-991105-19-2025 Evaluation note* Diagnosis Onset Date Resolution Status [...] post total hip replacement, rightnoneactiveJune 2024 3:59pm [facility] Work Phone: 1(222) 650-311305-19-2025 Evaluation note* Diagnosis Onset Date Resolution Status [...] post total hip replacement, rightnoneactiveJune 2024 3:59pm [facility] Work Phone: 1(187) 155-926305-19-2025 Evaluation note* Diagnosis Onset Date Resolution Status [...] post total hip replacement, rightnoneactiveJune 2024 10:57am [facility] Work Phone: 1([phone]) [phone] Evaluation note* Diagnosis Onset Date Resolution Status [...] post total hip replacement, rightnoneactiveJuly 2024 11:59am [facility] Work Phone: 1(947) 501-975405-19-2025 Evaluation note* Diagnosis Onset Date Resolution Status [...] lower extremityacuteAugust 2024 10:17amStasis dermatitisacuteAugust 2024 10:17am [facility] Work Phone: 1(713) 706-835503-19-2025 Note[facility] - [facility] Subjective Rehan Trejo is a 59 y.o. [...] Adrenal insufficiency NSTEMI (non-ST elevated myocardial infarction) ([facility]) Alcoholism ([facility]) Atypical chest pain COVID-19 Diverticulitis Dysphagia Dyspnea Edema Epigastric pain Groin strain Lumbar radicular pain Other diseases of lung, not elsewhere classified Other instability, left ankle Other specified congenital deformities of feet Pain in left ankle and joints of left foot Pneumonia Primary osteoarthritis of left hip Sprain of left ankle Syncope and collapse Benign essential hypertension Osteoarthritis of knee Recurrent seizures ([facility]) HPI Patient with history of syncope 2022, [...] Diagnosis Date COPD (chronic obstructive pulmonary disease) ([facility]) Hyperlipidemia Hypertension Seizures ([facility]) Syncope No past surgical history on file. [...] Drug use: Never Allergies Allergies Allergen Reactions [place] Anaphylaxis Penicillins Angioedema Medications Current Outpatient Medications: [...] 4 mg by saloni (more content not included)...[facility]05-15-2023 NotePROCEDURE: XR ANKLE LT 2V HISTORY: Unspecified fall , left ankle pain COMPARISON: None. FINDINGS: BONES:No fracture, acute abnormality, or significant arthropathy. SOFT TISSUES:Mild anterior lateral soft tissue swelling. EFFUSION:None visible. OTHER: Negative. IMPRESSION: 1. No acute bone abnormality. Electronically authenticated by: SHEN SOSA Date: 2022-11-27 11:27[facility]04-11-2023 NotePROCEDURE: XR HIP LT 2 3V W PELVIS HISTORY: Idiopathic osteoarthritis ; acute left hip pain after falling COMPARISON: None. FINDINGS: BONES:No fracture, acute abnormality, or significant arthropathy. SOFT TISSUES:No visible soft tissue swelling. EFFUSION:None visible. OTHER: Negative. IMPRESSION: 1. No acute bone abnormality or significant degenerative joint disease. Electronically authenticated by: SHEN SOSA Date: 2022-10-24 09:51[facility] Diagnosis Rash and other nonspecific skin eruption- Primary [facility] Diagnosis Rash and other nonspecific skin eruption [facility]* Diagnosis Stasis dermatitis of both legs- Primary Encounter for removal of sutures Rash and other nonspecific skin eruption documented in this encounter [facility]Reason for referral (narrative)No reason for referral information availableDay[facility] Work Phone: Summary Purpose Family History No Family History Records Found Relationship Condition Age at Onset Recorded Date/T araseli father Diabetes mellitus Unknown motherMalignant neoplasmUnknown Relationship Condition Age at Onset Recorded Date/T araseli father Diabetes mellitus Unknown Malignant neoplasmUnknownMultiple sclerosisUnknownmotherMalignant neoplasm Unknown Advance Directives No Advanced Directives [...] February 11, 2025 11:59am Right shoulder pain Wendy 30th, 2025 11:5 9am Status post total hip replacement, right February 11, 2025 11:59am Cellulitis of right lower extremity Augu st 2024 10:17am Stasis dermatitis February 24, 2025 [...] 4:33p m Impaired mobility and activities of camren y living December 03, 2024 4:33pm S/P [...] :17am Cellulitis of right lower extremity Augu 2024 10:17am Avascular necrosis of bone of [...] section and content) DATE CREATED AUTHOR 02/15/2019 [facility] DATE CREATED AUTHOR AUTHOR'S ORGANIZ ATION 12/22/2022 [facility] DATE CREATED AUTHOR AUTHOR'S ORGANIZ ATION 03/06/2023 [facility] DATE CREATED AUTHOR AUTHOR'S ORGANIZ ATION 04/19/2025 [facility] DATE CREATED AUTHOR AUTHOR'S ORGANIZ ATION 04/26/2025 [facility] DATE CREATED AUTHOR AUTHOR'S ORGANIZ ATION 05/24/2025 [facility] Care Teams (unrecognized sec tion and content) Team Status: Active Member Role Status Dates Pee Lakhani MD Primary Care Provider Active Team Status: Inactive Member Role Status Dates Pee Lakhani MD Primary Care Provider Active Start: December 01, 2024 End: December 03, 2024MicMarian Bansal ProviderActiveStart: December 01, 2024 End: December 03, 2024Thana luisa Garcia MDOther ProviderActiveStart: December 01, 2024 End: December 03tracie Mckay MDOther ProviderActiveStart: December 01, 2024 End: December 03, 2024Nishant Ceja DOOther ProviderActiveStart: December 01, 2024 End: December 03, 2024Janki Lam II, MDOther ProviderActiveStart: December 01, 2024 End: December 03, 2024Talya Weiss ProviderActiveStart: December 01, 2024 End: December 03ndTate Jamesending ProviderActiveStart: December 01, 2024 End: December 03, 2024Maria Del Rosario Hernandez MDOther ProviderActiveStart: December 01, 2024 End: December 03, 2024Jose Antonio Camara MDOther ProviderActiveStart: December 01, 2024 End: December 03, 2024Gloria Arrington , APRNOther ProviderActiveStart: December 01, 2024 End: December 03enedict Jose Waterman Jr, DOOther ProviderActiveStart: December 01, 2024 End: December 03john Jimenez MDOther ProviderActiveStart: December 01, 2024 End: December 03, 2024 Team Status: Active Member Role Status Dates Pee Lakhani MD Primary Care Provider Active Start: December 01, 2024 Ammon Cochran DOAdmit ProviderActiveStart: December 01, 2024 Justin Garcia MDOther ProviderActiveStart: December 01, 2024 Kassy Mckay MDOther ProviderActiveStart: December 01, 2024 Nishant Ceja DOAttending Provider, Other ProviderActiveStart: December 01, 2024 Janki Lam II, MDOther ProviderActiveStart: December 01, 2024 Rehan Thomas DOOther ProviderActiveStart: December 01, 2024 Luis Alberto Hearn MDOther ProviderActiveStart: December 01, 2024 Team Status: Active Member Role Status Dates Pee Lakhani MD Primary Care Provider Active Start: December 03, 2024 Ammon Cochran DOAdmcleo ProviderActiveStart: December 03, 2024 Justin Garcia MDOther ProviderActiveStart: December 03, 2024 Kassy Mckay MDOther ProviderActiveStart: December 03, 2024 Nishant Ceja DOOther ProviderActiveStart: December 03, 2024 Janki Lam II, MDOther ProviderActiveStart: December 03, 2024 Rehan Thomas DOOther ProviderActiveStart: December 03, 2024 Luis Alberto Hearn MDOther ProviderActiveStart: December 03, 2024 Maria Del Rosario Hernandez MDOther ProviderActiveStart: December 03, 2024 Jose Antonio Camara MDAttending Provider, Other ProviderActiveStart: December 03, 2024 Gloria Arrington , APRNOther ProviderActiveStart: December 03, 2024 Hinton Jose Waterman Jr, DOOther ProviderActiveStart: December 03, 2024 [...] ProviderActiveStart: December 03, 2024 End: December 14, 2024Martavo Camara RNOther ProviderActiveStart: December 03, 2024 End: December 14, 2024Rabarbara Alves MDOther ProviderActiveStart: December 03, 2024 End: December 14, 2024Ronbairon Duffy DOOther ProviderActiveStart: December 03, 2024 End: December 14, 2024Mushuy Huerta MDOther ProviderActiveStart: December 03, 2024 End: December 14, 2024Krtrinity Oliveros DOOther ProviderActiveStart: December 03, 2024 End: December 14ndamanda Hearn MDOther ProviderActiveStart: December 03, 2024 End: December 14, 2024Aneesh Pina ProviderActiveStart: December 03, 2024 End: December 14, 2024Miclaura Quiros DOOther ProviderActiveStart: December 03, 2024 End: December 14, 2024Phil Moore MDOther ProviderActiveStart: December 03, 2024 End: December 14, 2024Nikos Fitzgeraldher ProviderActiveStart: December 03, 2024 End: December 14, 2024Yakov Hodges MDOther ProviderActiveStart: December 03, 2024 End: December 14lorena Hatch MDOther ProviderActiveStart: December 03, 2024 End: December 14, 2024Leeanna Hickey MDOther ProviderActiveStart: December 03, 2024 End: December 14, 2024Sani Moran MDOther ProviderActiveStart: December 03, 2024 End: December 14, 2024Miclaura Cochran DOOther ProviderActiveStart: December 03, 2024 End: December 14, 2024Reyes Tracey MDOther ProviderActiveStart: December 03, 2024 End: December 14, 2024Earjose Huerta MDOther ProviderActiveStart: December 03, 2024 End: December 14lowell Bonner CENTRAL STERILE TECHNICIAN-COther ProviderActiveStart: December 03, 2024 End: December 14julienne Alejandra APRNOther ProviderActiveStart: December 03, 2024 End: December 14, 2024J Luis Hebert MDOther ProviderActiveStart: December 03, 2024 End: December 14, 2024Naeelizabeth Hope MDOther ProviderActiveStart: December 03, 2024 End: December 14, 2024Romer Calixto MDOther ProviderActiveStart: December 03, 2024 End: December 14, 2024Khmariely Rivera MDOther ProviderActiveStart: December 03, 2024 End: December 14noLooney MDOther ProviderActiveStart: December 03, 2024 End: December 14, 2024Trinity Tai DOOther ProviderActiveStart: December 03, 2024 End: December 14, 2024Andres Flores DOOther ProviderActiveStart: December 03, 2024 End: December 14, 2024Reshma Marin APRNOther ProviderActiveStart: December 03, 2024 End: December 14, 2024Az Bai DOOther ProviderActiveStart: December 03, 2024 End: December 14, 2024Luciana Dempsey MDOther ProviderActiveStart: December 03, 2024 End: December 14, 2024Diana Forde APRNOther ProviderActiveStart: December 03, 2024 End: December 14jairo Hernandez APRNOt ProviderActiveStart: December 03, 2024 End: December 14Aneesh Mendoza ProviderActiveStart: December 03, 2024 End: December 14, 2024Ruben Keith MDOther ProviderActiveStart: December 03, 2024 End: December 14, 2024Michael Savage , DOOther ProviderActiveStart: December 03, 2024 End: December 14azkate Álvaro , DOOther ProviderActiveStart: December 03, 2024 End: December 14, 2024Gavin Calixto MDOther ProviderActiveStart: December 03, 2024 End: December 14dejan Sampson MDOther ProviderActiveStart: December 03, 2024 End: December 14robert Ortega APRNOther ProviderActiveStart: December 03, 2024 End: December 14, 2024Mobernabe Castro MDOther ProviderActiveStart: December 03, 2024 End: December 14malka Light MDOther ProviderActiveStart: December 03, 2024 End: December 14, 2024Johortencia Dacosta MDOther ProviderActiveStart: December 03, 2024 End: December 14, 2024Phil Shaikh MDOther ProviderActiveStart: December 03, 2024 End: December 14, 2024Ramariah Elise MDOther ProviderActiveStart: December 03, 2024 End: December 14, 2024Kabridget Mast APRNOther ProviderActiveStart: December 03, 2024 End: December 14, 2024Yeimi Smith APRNOther ProviderActiveStart: December 03, 2024 End: December 14, 2024Saumberto Moore RNOther ProviderActiveStart: December 03, 2024 End: December 14, 2024 Team Status: Active Member Role Status Dates Pee Lakhani MD Primary Care Provider Active Start: December 04, 2024 Valentino Silva Provider, Attending Provider, Other Provider ActiveStart: December 04, 2024 Padmini Acosta RNOther ProviderActiveStart: December 04, 2024 Annemarie Bhakta RNOther ProviderActiveStart: December 04, 2024 Angle Monreal RNOther ProviderActiveStart: December 04, 2024 Cindy Reveles RNOther ProviderActiveStart: December 04, 2024 Lena Wasserman [...] MDOther ProviderActiveStart: December 04, 2024 Ammon Quiros DOOther ProviderActiveStart: December 04, 2024 Phil Moore MDOther ProviderActiveStart: December 04, 2024 Danyell Daniels , APRNOther ProviderActiveStart: December 04, 2024 Yakov Hodges MDOther ProviderActiveStart: December 04, 2024 Juan Pablo Hatch MDOther ProviderActiveStart: December 04, 2024 Leeanna Hickey MDOther ProviderActiveStart: December 04, 2024 Vin Moran MDOther ProviderActiveStart: December 04, 2024 Ammon Cochran DOOther ProviderActiveStart: December 04, 2024 Reyes Tracey MDOther ProviderActiveStart: December 04, 2024 Kyle Huerta MDOther ProviderActiveStart: December 04, 2024 Sis Bonner , CENTRAL STERILE TECHNICIAN-COther ProviderActiveStart: December 04, 2024 Yamilet Alejandra , APRNOther ProviderActiveStart: December 04, 2024 J Luis Hebert MDOther ProviderActiveStart: December 04, 2024 Fermín Hope MDOther ProviderActiveStart: December 04, 2024 Tino Calixto MDOther ProviderActiveStart: December 04, 2024 Marline Rivera MDOther ProviderActiveStart: December 04, 2024 Yan Joel MDOther ProviderActiveStart: December 04, 2024 Trinity Zaire , DOOther ProviderActiveStart: December 04, 2024 Andres [...] Start: December 12, 2024 Paco Jimenez , [facility] Provider, Attending Provider, Other Provider ActiveStart: December 12, 2024 Padmini Acosta RNOther ProviderActiveStart: December 12, 2024 Annemarie Bhakta , BRISEYDAOther ProviderActiveStart: December 12, 2024 Angle Monreal , BRISEYDAOther ProviderActiveStart: December 12, 2024 Cindy Reveles , BRISEYDAOther ProviderActiveStart: December 12, 2024 Lena Wasserman , RNOther ProviderActiveStart: December 12, 2024 Liv Camara , RNOther ProviderActiveStart: December 12, 2024 Yonis Alves MDOther ProviderActiveStart: December 12, 2024 Kenzie Duffy , DOOther ProviderActiveStart: December 12, 2024 Tom Huerta MDOther ProviderActiveStart: December 12, 2024 Connor Oliveros , DOOther ProviderActiveStart: December 12, 2024 Luis Alberto Hearn MDOther ProviderActiveStart: December 12, 2024 Brie Romero MDOther ProviderActiveStart: December 12, 2024 Ammon Quiros DOOther ProviderActiveStart: December 12, 2024 Phil Moore [...] MDOther ProviderActiveStart: December 12, 2024 Sis Bonner CENTRAL STERILE TECHNICIAN-COther ProviderActiveStart: December 12, 2024 Yamilet Alejandra , [...] Active Start: December 03, 2024 End: December 14hrBree Nguyễnit ProviderActiveStart: December 03, 2024 End: December 14lexlatrell [...] ProviderActiveStart: December 03, 2024 End: December 14, 2024Krtrinity Oliveros DOOther ProviderActiveStart: December 03, 2024 End: December 14ndamanda Hearn MDOther ProviderActiveStart: December 03, 2024 End: December 14, 2024Brie Romero MDOther ProviderActiveStart: December 03, 2024 End: December 14, 2024Miclaura Quiros DOOther ProviderActiveStart: December 03, 2024 End: December 14, 2024Phil Moore MDOther ProviderActiveStart: December 03, 2024 End: December 14, 2024LyNikos Kennedyher ProviderActiveStart: December 03, 2024 End: December 14, 2024Yakov Hodges MDOther ProviderActiveStart: December 03, 2024 End: December 14lorena Hatch MDOther ProviderActiveStart: December 03, 2024 End: December 14, 2024Leeanna Hickey MDOther ProviderActiveStart: December 03, 2024 End: December 14, 2024Safrocio Moran MDOther ProviderActiveStart: December 03, 2024 End: December 14, 2024Michaejose Cochran DOOther ProviderActiveStart: December 03, 2024 End: December 14, 2024Aneesh Lindsey ProviderActiveStart: December 03, 2024 End: December 14, 2024Earjose Huerta MDOther ProviderActiveStart: December 03, 2024 End: December 14lowell Bonner NP-COther ProviderActiveStart: December 03, 2024 End: December 14djulienne Alejandra APRNOther ProviderActiveStart: December 03, 2024 End: December 14, 2024J Luis Hebert MDOther ProviderActiveStart: December 03, 2024 End: December 14, 2024NaeAneesh Maynard ProviderActiveStart: December 03, 2024 End: December 14, 2024Romer Calixto MDOther ProviderActiveStart: December 03, 2024 End: December 14, 2024Khmariely Rivera MDOther ProviderActiveStart: December 03, 2024 End: December 14noLooney MDOther ProviderActiveStart: December 03, 2024 End: December 14, 2024Marsandra Tai DOOther ProviderActiveStart: December 03, 2024 End: December 14, 2024Andres Flores DOOther ProviderActiveStart: December 03, 2024 End: December 14, 2024Reshma Marin APRNOther ProviderActiveStart: December 03, 2024 End: December 14, 2024Az Bai DOOther ProviderActiveStart: December 03, 2024 End: December 14, 2024Luciana Dempsey MDOther ProviderActiveStart: December 03, 2024 End: December 14, 2024Diana Forde APRNOther ProviderActiveStart: December 03, 2024 End: December 14jairo Hernandez APRNOther ProviderActiveStart: December 03, 2024 End: December [...] ProviderActiveStart: December 03, 2024 End: December 14, 2024Mobernabe Castro MDOther ProviderActiveStart: December 03, 2024 End: December 14malka Light MDOther ProviderActiveStart: December 03, 2024 End: December 14, 2024Johortencia Dacosta MDOther ProviderActiveStart: December 03, 2024 End: December 14, 2024Phil Shaikh MDOther ProviderActiveStart: December 03, 2024 End: December 14, 2024Ramariah Elise MDOther ProviderActiveStart: December 03, 2024 End: December 14, 2024Praveena Mast , APRNOther ProviderActiveStart: December 03, 2024 End: December 14, 2024Niclauren Smith , APRNOther ProviderActiveStart: December 03, 2024 End: December 14, 2024Saumberto Moore RNOther ProviderActiveStart: December 03, 2024 End: December 14, 2024JoTate Rodriguezending ProviderActiveStart: December 03, 2024 End: December 14, 2024 Team Status: Inactive Member Role Status Dates Pee Lakhani MD Primary Care Provider Active Start: December 22, 2024 End: December 22, 2024JuJanes Box ProviderActiveStart: December 22, 2024 End: December 22, 2024 Team Status: Active Member Role Status Dates Pee Lakhani MD Primary Care Provider Active Start: December 22, 2024 Janes Beebe ProviderActiveStart: December 22, 2024 Team Status: Active Member Role Status Dates Pee Lakhani MD Primary Care Provider Active Start: December 01, 2024 Ammon Cochran DOAdmit ProviderActiveStart: December 01, 2024 Justin Garcia MDOther ProviderActiveStart: December 01, 2024 Kassy Mckay MDOther ProviderActiveStart: December 01, 2024 Nishant Ceja , DOAttending ProviderActiveStart: December 01, 2024 Nishant Ceja , DOOther ProviderActiveStart: December 01, 2024 Janki Lam II, MDOther ProviderActiveStart: December 01, 2024 Rehan Thomas , DOOther ProviderActiveStart: December 01, 2024 Luis Alberto Hearn MDOther ProviderActiveStart: December 01, 2024 Team Status: Active Member Role Status Dates Pee Lakhani MD Primary Care Provider Active Start: December 03, 2024 Ammon Cochran DOAdmit ProviderActiveStart: December 03, 2024 Justin Garcia MDOther ProviderActiveStart: December 03, 2024 Kassy Mckay MDOther ProviderActiveStart: December 03, 2024 Nishant Ceja DOOther ProviderActiveStart: December 03, 2024 Janki Lam II, MDOther ProviderActiveStart: December 03, 2024 Rehan Thomas DOOther ProviderActiveStart: December 03, 2024 Luis Alberto Hearn MDOther ProviderActiveStart: December 03, 2024 Maria Del Rosario Hernandez MDOther ProviderActiveStart: December 03, 2024 Jose Antonio Camara MDAttending ProviderActiveStart: December 03, 2024 Jose Antonio Camara MDOther ProviderActiveStart: December 03, 2024 Gloria Arrington APRNOther ProviderActiveStart: December 03, 2024 Levi Waterman Jr, DOOther ProviderActiveStart: December 03, 2024 Paco Jimenez MDOther ProviderActiveStart: December 03, 2024 Team Status: Active Member Role Status Dates Pee Lakhani MD Primary Care Provider Active Start: December 04, 2024 Paco Jimenez MDAdmcleo ProviderActiveStart: December 04, 2024 Paco Jimenez MDAttending ProviderActiveStart: December 04, 2024 Paco Jimenez MDOther ProviderActiveStart: December 04, 2024 Padmini Acosta , RNOther ProviderActiveStart: December 04, 2024 Annemarie Bhakta , RNOther ProviderActiveStart: December 04, 2024 Angle Monreal , RNOther ProviderActiveStart: December 04, 2024 Cindy Reveles , RNOther ProviderActiveStart: December 04, 2024 Lena Wasserman , BRISEYDAOther ProviderActiveStart: December 04, 2024 Liv Camara , BRISEYDAOther ProviderActiveStart: December 04, 2024 Yonis Alves MDOther ProviderActiveStart: December 04, 2024 Kenzie Duffy , DOOther ProviderActiveStart: December 04, 2024 Tom Huerta MDOther ProviderActiveStart: December 04, 2024 Connor Oliveros DOOther ProviderActiveStart: December 04, 2024 Luis Alberto Hearn MDOther ProviderActiveStart: December 04, 2024 Brie Romero MDOther ProviderActiveStart: December 04, 2024 Ammon Quiros DOOther ProviderActiveStart: December 04, 2024 Phil Moore MDOther ProviderActiveStart: December 04, 2024 Danyell Daniels , APRNOther ProviderActiveStart: December 04, 2024 Yakov Hodges MDOther ProviderActiveStart: December 04, 2024 Juan Pablo Hatch MDOther ProviderActiveStart: December 04, 2024 Leeanna Hickey MDOther ProviderActiveStart: December 04, 2024 Vin Moran MDOther ProviderActiveStart: December 04, 2024 Ammon Cochran DOOther ProviderActiveStart: December 04, 2024 Reyes Tracey MDOther ProviderActiveStart: December 04, 2024 Kyle Huerta MDOther ProviderActiveStart: December 04, 2024 Sis Bonner , CENTRAL STERILE TECHNICIAN-COther ProviderActiveStart: December 04, 2024 Yamilet Alejandra , [...] Active Start: December 12, 2024 Paco Jimenez MDAdmit ProviderActiveStart: December 12, 2024 Paco Jimenez MDAttending [...] MDOther ProviderActiveStart: December 12, 2024 Connor Oliveros DOOther ProviderActiveStart: December 12, 2024 Luis Alberto Hearn MDOther ProviderActiveStart: December 12, 2024 Brie Romero MDOther ProviderActiveStart: December 12, 2024 Ammon Quiros DOOther ProviderActiveStart: December 12, 2024 Phil Moore [...] ProviderActiveStart: December 12, 2024 Sis Bonner , CENTRAL STERILE TECHNICIAN-COther ProviderActiveStart: December 12, 2024 Yamilet Alejandra , APRNOther ProviderActiveStart: December 12, 2024 J Luis Hebert MDOther ProviderActiveStart: December 12, 2024 Fermín Hope MDOther ProviderActiveStart: December 12, 2024 Tino Calxito MDOther ProviderActiveStart: December 12, 2024 Marline Rivera [...] APRNOther ProviderActiveStart: December 12, 2024 Mariam Moore , BRISEYDAOther ProviderActiveStart: December 12, 2024 Team Status: Inactive Member Role Status Dates Pee Lakhani MD Primary Care Provider Active Start: January 12, 2025 End: January 12, 2025Justin A Brenna , DOAttending ProviderActiveStart: January 12, 2025 End: January 12, 2025 Team Status: Inactive Member Role Status Gabriella Lakhani MD Primary Care Provider Active Start: February 06, 2025 End: February 06, 2025Justin A Brenna , DOAttending ProviderActiveStart: February 06, 2025 End: February 06, 2025 Team Status: Inactive Member Role Status Gabriella Lakhani MD Primary Care Provider Active Start: February 11, 2025 End: February 11, 2025Justin A Brenna , DOAttending ProviderActiveStart: February 11, 2025 End: February 11, 2025 Team Status: Active Member Role Status Gabriella Lakhani MD Primary Care Provider Active Start: February 24, 2025 Nishant Samra Ceja , DOOther ProviderActiveStart: February 24, 2025 Ammon Huang MDAttending ProviderActiveStart: February 24, 2025 Ammon Huang MDOther ProviderActiveStart: February 24, 2025 Team Status: Inactive Member Role Status Gabriella Lakhani MD Primary Care Provider Active Start: February 24, 2025 End: February 26, 2025Justin A Brenna , DOAdmit ProviderActiveStart: February 24, 2025 End: February 26, 2025Justin A Brenna , DOAttending ProviderActiveStart: February 24, 2025 End: February 26, 2025Ammon Huang MDOther ProviderActiveStart: February 24, 2025 End: February 26, 2025 Team Status: Inactive Member Role Status Gabriella Lakhani MD Primary Care Provider Active Start: March 04, 2025 End: March 04, 2025Justin A Brenna , DOAttending ProviderActiveStart: March 04, 2025 End: March 04, 2025 Team Status: Active Member Role/Relationship Status Gabriella Lakhani MD Primary Care Provider Active Team Status: Active Member Role/Relationship Status Gabriella Lakhani MD Primary Care Provider Active Start: February 24, 2025 Nishant Samra Ceja , DOOther ProviderActiveStart: February 24, 2025 Ammon Huang MDAttending ProviderActiveStart: February 24, 2025 Ammon Huang MDOther ProviderActiveStart: February 24, 2025 Team Status: Inactive Member Role/Relationship Status Gabriella Lakhani MD Primary Care Provider Active Start: February 24, 2025 End: February 26, 2025Justin Samra Ceja DOAdmit ProviderActiveStart: February 24, 2025 End: February 26, 2025Justin Samra Ceja DOAttending ProviderActiveStart: February 24, 2025 End: February 26, 2025Miclaura Huang MDOther ProviderActiveStart: February 24, 2025 End: February 26, 2025 Team Status: Inactive Member Role/Relationship Status Gabriella Lakhani MD Primary Care Provider Active Start: March 04, 2025 End: March 04, 2025Justin Samra Ceja , DOAttending ProviderActiveStart: March 04, 2025 End: March 04, 2025 Team Status: Inactive Member Role/Relationship Status Gabriella Lakhani MD Primary Care Provider Active Start: May 13, 2025 End: May 13, 2025Justin Samra Ceja , DOAttending ProviderActiveStart: May 13, 2025 End: May 13, [...] BE BASED ON THE PRIMARY CLINICAL RECORDS. [facility] provides no warranty or guarantee of the accuracy or completeness of information in this document.
== END 2025-05-25 11:47 | disposition home or self-care (01) ==
LOC: US 11:47
PROVIDERS: PCP Family Medicine; Visit Provider Family Medicine
DX: R60.9 Edema, unspecified (principal)
CPT/HCPCS: 93971

== ENCOUNTER 2025-06-01 06:20 | Day surgery (SDC) | payer MEDICARE, SELFPAY ==
[2025-05-20 11:52] VITALS: BP 122/77; PULSE 64; TEMP 36.5; O2SAT 98; BMI 27.2
--- OUTSIDE RECORDS SUMMARY | 2025-05-22 13:00 | XMS_ITS | Encounter Summary ---
Author Organization [facility] Address [address] [place] [address] Care Team Providers Care Supervisor [address] Name Role Phone Patrice Guadalupe MD Primary Care Provider Reason for Referral * (Routine) - Pending ReviewSpecialtyDiagnoses / ProceduresReferred By Contact Referred To Contact Diagnoses Pre-op evaluation Atypical chest pain APPIAH (dyspnea on exertion) Procedures ECG 12 lead Reid Shea MD [address] [facility] [address] MS:[place] [address] Phone: tel: fax: Referral IDStatusReasonStart DateExpiration DateVisits RequestedVisits [id number] * Imaging (Routine) - Pending ReviewSpecialtyDiagnoses / ProceduresReferred By ContactReferred To ContactCardiology Diagnoses Pre-op evaluation Shortness of breath Procedures Transthoracic echo (TTE) complete Reid Shea MD [address] [facility] [address] MS:[address] [place] [address] Phone: tel: fax: Referral IDStatusDiannaasonStphuc DateExpiration DateVisits RequestedVisits [id number] Review Perform Procedure Reason for Visit * ReasonCommentsFollow-upSurgery clearanceLeft hip replacement Jun 01 Dr. Egan recorderMobitz type 1 atrioventricular blockMigraineHyperlipidemia Ostium secundum type atrial septal defectPeripheral venous insufficiency HypertensionNSTEMICoronary Artery Disease Encounter Details DateTypeDepartmentCare Team (Latest Contact Info)Hjacyudtmzp70/07/2025 1:00 PM ESTOffice Visit [facility] [address] [place] [address] Reid Shea MD [address] [facility] [address] MS:[address] [place] [address] Pre-op evaluation (Primary Dx); Atypical chest pain; APPIAH (dyspnea on exertion); Shortness of breath; Syncope, unspecified syncope type; Benign essential hypertension; Mixed hyperlipidemia; Alcoholism (CMS/HCC) Social History Tobacco UseTypesPacks/DayYears UsedDateSmoking Tobacco: [id number] - mokeless Tobacco: FormerChewQuit: 1985Alcohol UseStandard Drinks/Week CveqafrxPch95 (1 standard drink = 0.6 oz pure [...] Assigned at BirthMale 04/21/2023 10:36 AM EDTLegal CrfPkie20/28/2022 1:37 PM ESTGender IdentityMale 04/21/2023 10:36 AM EDTSexual OrientationHeterosexual or Omtgrzkn56/07/2023 10:36 AM EDTdocumented as of this encounter Last Filed Vital Signs Vital SignReadingTime TakenCommentsBlood Bqboglbs843/ 1:06 PM EST Xpqmp881605/22/2025 1:06 PM ESTTemperature--Respiratory Rate--Oxygen Qhhmnnfguc81% 05/22/2025 1:06 PM ESTInhaled Oxygen Concentration--Weight--Zyyydi751.4 cm (6' 1 )05/22/2025 1:06 PM ESTBody Mass Index--documented in this encounter Functional Status * BPAnswerDate of VtyzncfskqAbjlbi124/8605/22/2025 1:06 PM Maty Manzo MA * PulseAnswerDate of PqqnpzqgwwQiadfq1684/07/2025 1:06 PM Maty Manzo MA * Audit Alcohol ScreeningQuestionAnswerDate of AssessmentAuthorHow often do you have a drink containing alcohol? 1:26 PM Maty Manzo MA How many standard drinks containing alcohol do you have on a typical day?2 05/22/2025 1:26 PM Maty Manzo MAHow often do you have six or more drinks on one occasion? 1:26 PM Maty Manzo MAAudit-C Znyav5859 1:26 PM Maty Manzo MA * Patient PositionAnswerDate of BilsmfpyxgYjmshzHdlbxfs09/07/2025 1:06 PM Maty Urena MA * BPAnswerDate of QjmbmutfgzCdfztm776/8605/22/2025 1:06 PM Maty Manzo MA * PulseAnswerDate of BgrvidrbyrXksjzm9388/07/2025 1:06 PM Maty Manzo MA * BdJ1JtgjbhRfrm of VchezewoluOznevr2814/07/2025 1:06 PM Maty Manzo MA * BP [...] one occasion? 1:26 PM Maty Manzo MAAudit-C Eaxdz7777 1:26 PM Maty Manzo MA * Patient PositionAnswerDate of ExbwhizfiwGjgsucPrnowck04/07/2025 1:06 PM Maty Urena MA documented as of this encounter Progress Notes * Reid Shea MD - 05/22/2025 1:00 PM EST Images from the original note were not included. [place] [facility] - [facility] Subjective Rehan [place] is a 60 [...] Diagnosis Date COPD (chronic obstructive pulmonary disease) ([facility]) Hyperlipidemia Hypertension Seizures ([facility]) Syncope Past Surgical History: Procedure Laterality Date [...] Drug use: Never Allergies Allergies Allergen Reactions [place] Anaphylaxis Penicillins Angioedema Procaine Unknown Medications Current [...] the morning and at bedtime. 100mg in at275ef in pm, Disp: , Rfl: triamcinolone (Kenalog) [...] voltage QRS Borderline ECG Echo: 09/13/2023 at [facility] nuclear stress test: 05/28/2023 Negative perfusion [...] cardiomyopathy. Follow-up in 6 months Reid Shea MD,[facility] documented in this encounter Plan of [...] your diet plan as advised by your canteen operator Leona Shrestha, RN Follow your diet plan as advised by your canteen operator Leona Etienne, RNdocumented as of this encounter Procedures Procedure NamePriorityDate/TimeAssociated DiagnosisCommentsECG 12-LEADRoutine 05/22/2025 1:46 PM EST Pre-op evaluation Atypical chest pain APPIAH (dyspnea on exertion) ECG 12 LEAD UNIT ZXIFHPEYQLowijai48/07/2025 1:05 PM EST Pre-op evaluation documented in [...] MemberRelationshipSpecialtyStart DateEnd Patrice Guadalupe MD [address] [facility] [place] [phone] PCP - Jrjygsz51/7/23documented as of this encounter
--- OUTSIDE RECORDS SUMMARY | 2025-05-25 05:45 | XMS_ITS ---
Author Organization [facility] in [place] Address [address] [place] [address] Care Team Providers Care Manager Assurance Name Role Phone Michael Guadalupe Primary Care Provider Allergies Allergen (clinical drug ingredient) Drug/Non Drug Allergy documented on EMR Reaction Allergy Type Onset Date Status strawberry allergenic extract Amoret (uncoded) unknown Allergy ActivePenicillinunknownDrug AllergyActive REASON FOR VISIT Presents to office with for surgical clearance. Having left total hip replacement with Dr. Ceja at [facility] on 06/01 Medications Medication SIG (Take, Route, Frequency, Duration) Notes Start Date End Date Status Aspirin 81 MG 1 tablet Orally Once a day; Dura tion: 30 days ActiveAtorvastatin Calcium 10 MG1 tablet Orally Once a day; Duration: 30 days 4ActiveIsosorbide Mononitrate ER 30 MGtake 1 tablet by mouth every morning Orally Once a day; Duration: 30 daysActiveIpratropium-Albuterol 0.5-2.5 (3) MG/3ML3 mL as needed Inhalation every 6 hrs; Duration: 30 daysPRNActive Diclofenac Sodium 75 MG1 tablet as needed Orally Twice a day; Duration: 30 days 5ActiveAlbuterol Sulfate (2.5 MG/3ML) 0.083%3 mL Inhalation four times a day PRN; Duration: 30 daysPRNActiveCiprofloxacin HCl 500 MG1 tablet Orally every 12 hrs; Duration: 10 days5ActiveTopamax 100 MG1 tablet in the AM Orally and 2 tablets at bedtime; Duration: 30 daysActiveLevothyroxine Sodium 125 MCG2 capsule in the morning on an empty stomach Orally Once a day; Duration: 90 daysActiveHyoscyamine Sulfate 0.125 MG1-2 tabs SL SL every 4 hrs PRN abd pain 5ActiveViagra 100 MG1 tablet as needed Orally Once a day; Duration: 30 daysPRNActiveVentolin HFA 108 (90 Base) MCG/ACT2 puff as needed Inhalation four times daily PRN; Duration: 30 daysPRNActivetiZANidine HCl 4 MG2 tablets Orally at bedtime; Duration: 30 days4ActiveTamsulosin HCl 0.4 MG1 capsule Orally Once a day; Duration: 30 days5ActiveDoxycycline Monohydrate 100 MG1 tablet Orally bid; Duration: 10 days5ActiveKeppra 750 MG1 tablet Orally BID; Duration: 30 daysActiveOndansetron 4 MG1 tablet on the tongue and allow to dissolve Orally [id number] Tartrate 50 MG1 tablet with food Orally Twice a day; Duration: 30 day(s)3Active Social History Tobacco Use: Social History Observation Description Date Details (start date - stop date) Former Smoker 07/16/1982 - 06/15/2021 Tobacco Use/Smoking Question Answer Notes Patient is a former smoker When did you start smoking?07/16/1982When did you stop smoking?06/15/2021How long has it been since you last smoked?1-5 yearsAdditional Findings: Tobacco Non-UserCurrent ich-[id number] (Standard) Question Answer Notes Did you have [...] more times a week (4 points)Points7 InterpretationPositive Vital Signs Weight 208.4 lbs 05/25/2025 Height 73 in 05/25/2025 Blood pressure systolic 124 mm Hg 05/25/20 25 Blood pressure diastolic 70 mm Hg 025 BMI 27.49 kg/m2 05/25/2025 Encounters Encounter Location Date Provider Diagnosis [facility] [address] [place] [address] 05/25/2025 Michael Anayeli Essential (primary) hypertension I10 ; Primary osteoarthritis of left hip M16.12 and Edema R60.9 Assessments Encounter Date Diagnosis (ICD Code) Assessment Notes Treatment Notes Treatment Clinical Notes Section Notes 05/25/2025 Essential (primary) hypertension (ICD-10 - I10) 05/25/2025Primary osteoarthritis of left hip (ICD-10 - M16.12) Cleared for OR - No hx CAD, no strokes - Posible boil on Left lower leg - needs u/s make sure not phelbitis 05/25/2025Edema (ICD-10 - R60.9)possibel phelbitis vs per cyst - calling [facility] Plan Of Treatment Medication Medication Name Sig Start Date Stop Date Notes Ciprofloxacin HCl 500 MG 1 tablet Orally every 1 2 hrs; Duration: 10 days 05/25/2025 Doxycycline Monohydrate 100 MG1 tablet Orally bid; Duration: 10 days05/25/2025 Treatment Notes Assessment Notes Primary osteoarthritis of left hip Cleared for OR - No hx CAD, no strokes - Posible boil on Left lower leg - needs u/s make sure not phelbitis Edema possibel phelbitis v s per cyst - calling [facility] Pending Test Test Name Order Date US EVAN DOP LEG LT 05/25/2025 Progress Notes * Joseph POOLEinDOB:[birth year] (60 yo M)Acc No.[id number]:05/25/2025 Progress Note Patient: Rehan PARK :?Patrice Guadalupe ([facility]), MDDOB:1965???Age: 60 Y???Sex:MaleDate:05/25/2025Phone:[phone]:[address] [place], [place] [id number] In:10:44 AM ESTCheck Out:11:38 AM EST Subjective: * Chief Complaints: * P resents to office with for surgical clearance. Having left total hip replacement with Dr. Ceja at [facility] on 06/01 * HPI: ???General:?left hip - Dr Zhang - 06/01 -\ had cardiology appoint ment - getting labs and echo - aess theron with mild LVH No CAD - hx - no stgrokje s - no stents cleared for OR. * ROS: ???EENT:?hearing changes?denies.?visual changes?denies. non-healing mouth sores?denies.?swollen glands or neck lumps?denies.?hoarseness?denies.?sore throat?denies.?difficulty swallowing?denies.?nose bleeds?denies.?nasal congestion?denies.?ear ache?denies.?ear discharge denies.?ringing in ears?denies.?light sensitivity?denies.?eye pain?denies.?blurring?denies.?eye irritation?denies.?double vision?denies. vision loss?denies.?General/Constitutional:?Sweats:?Denies.?Fatigue?denies.?Sleep proble ms?denies.?Anorexia?denies.?Malaise?denies.?Weight loss?denies. Fatigue or Weakness?denies.?Fever or Chills?denies.?Cardiovascular:?Shortness of Breath w/lying flat?denies.?Lightheadedne ss/dizziness?denies.?Chest tightness/ heavy pressure?denies.?Swelling of legs, a nkles, or feet?denies.?Waking up with shortness of breath?denies.?Chest pain&#16 0;denies.?Palpitations?denies.?Weight gain?denies.?Respiratory:?Chronic or frequent cough?denies.?Coughing up blood&#1 60;denies.?Difficulty breathing?denies.?Productive cough?denies.?Snoring&#1 60;denies.?Shortness of breath that awakens from sleep (PND)?denies.?Chest pain? denies.?Sputum production?denies.?Wheezing?denies.?Musculoskeletal:?Joint pain?denies.?Joint Fluid?denies.?Backpain?denies.?Knee pain?denies.?Neck pain?denies.?Joint Stiffness?denies.?Muscle cramps?denies.?Weakness of muscles?denies.?Arthritis?denies.?Muscle aches?denies.?Pain in shoulder(s)?denies.?Swollen joints?denies.? * Active Problem List I10 Essential (primary) hypertension Modified On:09/24/2023 Status:kfnscwxnkD96.9Unspecified convulsions Modified On:09/24/2023 Status:twmhtegbfZ09.5Low back pain Modified On:12/07/2022 Status:zzdfbzfbeB90.9Hypothyroidism, unspecified Modified On:05/02/2023 Status:mlwyezhfjU94.33Obstructive sleep apnea (adult) (pediatric) Modified On:09/24/2023 Status:kjnnjxtsvR83.2Coronavirus infection, unspecified Modified On:12/07/2022 Status:rjgvnpdooL14.1Hypo-osmolality and hyponatremia Modified On:12/07/2022 Status:gtajgbnzqT25.3Myoclonus Modified On:12/07/2022 Status:yhsmrhkqjO99.909Migraine, unspecified, not intractable, without status migrainosus Modified On:12/07/2022 Status:lntmbeuovD07.1Chronic obstructive pulmonary disease with (acute) exacerbation Modified On:12/07/2022 Status:bjfrkhdguS71.83Fatigue Modified On:12/07/2022 Status:braroeftoJ77.909Migraine headache Modified On:12/07/2022 Status:tibdrpiqcX43Bihbjcjsecaz Modified On:08/01/2023 Status:qvdxqxtheZ36.9GERD (gastroesophageal reflux disease) Modified On:12/07/2022 Status:pfgigctkrL33.12Cervical radiculopathy Modified On:12/07/2022 Status:xbkzetppgH56.9Hypothyroidism Modified On:12/07/2022 Status:jdwechbuwU13.81Restless leg syndrome Modified On:12/07/2022 Status:izxxfhyyaC14.9Pneumonia Modified On:12/07/2022 Status:isamlbupdV61.9Edema Modified On:12/07/2022 Status:figfzlyyrP49.2Venous insufficiency Modified On:12/07/2022 Status:lkamdwicfP71.9Peripheral neuropathy Modified On:12/07/2022 Status:ybrvsghbxY07.9Gout Modified On:12/07/2022 Status:yxfgxiqveA90.00Dyspnea Modified On:12/07/2022 Status:eaunjndudW69.33Obstructive sleep apnea Modified On:12/07/2022 Status:egpinizncH78.1Hyponatremia Modified On:10/11/2023 Status:mrnoyewkrX58.9Esophageal reflux Modified On:12/07/2022 Status:budtjqkmaE50.0BPH (benign prostatic hyperplasia) Modified On:12/07/2022 Status:uawxzdwwrA25.13Epigastric pain Modified On:12/07/2022 Status:ojluvswjnR94.9Glaucoma Modified On:12/07/2022 Status:zmspkfaaxS53.9IBS (irritable bowel syndrome) Modified On:12/07/2022 Status:cupltlavrP83.9Allergic rhinitis Modified On:12/07/2022 Status:xrqozlcqdB05.26Lumbar disc herniation Modified On:12/07/2022 Status:jlbscgghaZ08.10Dysphagia Modified On:12/07/2022 Status:ztxormyjmD60.12Radiculopathy, cervical region Modified On:12/07/2022 Status:lycxgjliuP14.7Fibromyalgia Modified On:12/07/2022 Status:jfihbsmzqC13.89Other specified congenital deformities of feet Modified On:12/07/2022 Status:moigaecvzQ31.10Dysphagia, unspecified Modified On:12/07/2022 Status:tquwabkxcX82.92Diverticulitis Modified On:12/07/2022 Status:pmqynljmzX10.20Alcoholism Modified On:12/07/2022 Status:vueyqvsmrW06.909Seizure disorder Modified On:12/07/2022 Status:aqqjnpbssQ33.7Fibromyalgia Modified On:12/07/2022 Status:rxfsoglhyI00.26Herniated lumbar disc without myelopathy Modified On:12/07/2022 Status:dviocxtvqB61.909Intrinsic asthma Modified On:12/07/2022 Status:fbfwzapniF70.3Over weight Modified On:12/07/2022 Status:dsyceyaewA06.9Movement disorder Modified On:12/07/2022 Status:jonaekfxvA63.92Acute diverticulitis Modified On:12/07/2022 Status:seajasusdA69.9Acute gout Modified On:12/07/2022 Status:slnijqbcuK34.20Alcohol dependence Modified On:12/07/2022 Status:nkqgjcwioO35.9Neuropathy, peripheral Modified On:12/07/2022 Status:kfyxscchwM89.9Chronic GERD Modified On:12/07/2022 Status:ncqzwlzbeI77.0Benign prostatic hyperplasia without lower urinary tract symptoms Modified On:12/07/2022 Status:geiipvixgO91.1COVID-19 virus infection Modified On:12/07/2022 Status:pegqrszimS13.9Headache, unspecified Modified On:12/07/2022 Status:ucaepyaahS12.50Low back pain, unspecified Modified On:12/07/2022 Status:lzjsglzjwS18.12Primary osteoarthritis of left hip Modified On:10/23/2022 Status:vhrdvdrmqG96.26Disc displacement, lumbar Modified On:10/25/2022 Status:batthsxfkG75.26Other intervertebral disc displacement, lumbar region Modified On:11/21/2022 Status:dfxbqfuhuP94.16Lumbar radicular pain Modified On:12/06/2022 Status:ydukaxbgkN60.9Hypothyroid Modified On:08/01/2023 Status:fjovbeauiU30Kfye syncope Modified On:01/01/2023 Status:yqydwplmrT11.492ASprain of other ligament of left ankle, initial encounter Modified On:01/03/2023U Status:qntshudjyH44.572Pain in left ankle and joints of left foot Modified On:01/10/2023 Status:odiikowqxW75.2Neuralgia and neuritis, unspecified Modified On:01/10/2023 Status:zgqencytgI89.372Other instability, left ankle Modified On:02/06/2023 Status:pawpzqwseI82.9Hereditary and idiopathic neuropathy, unspecified Modified On:02/06/2023 Status:lhpahitjcE14.2Palpitation Modified On:05/02/2023 Status:eixppfgvfF95.12nd degree AV block Modified On:05/03/2023 Status:hypwimfbuR50.9Chest pain Modified On:10/11/2023 Status:imfkdoialW15.83Snoring Modified On:06/12/2023 Status:gutlqgplwL24Fhxeuzg Modified On:06/26/2023 Status:bobnmneygA10.219AGroin strain Modified On:06/29/2023U Status:navzeakvsM72.909Migraine Modified On:08/01/2023U Status:hildsubkfF42.5Hyperlipidemia Modified On:08/01/2023U Status:vzpmyvnimH44.02Shortness of breath Modified On:08/03/2023U Status:tfvnnmhkxW21.829Elevated WBCs Modified On:08/14/2023U Status:tgepepfueT72.9Fe deficiency anemia Modified On:08/14/2023U Status:soeqbhppdJ06.1Weakness Modified On:09/25/2023U Status:tieszcqvnK52.9Acquired hypothyroidism Modified On:10/11/2023U Status:eznlzyfawK19.0Moderate protein malnutrition Modified On:10/11/2023 Status:cnuhhcobmF45.1COPD exacerbation Modified On:10/11/2023 Status:sgxcbmlixG85TZ (high blood pressure) Modified On:10/11/2023U Status:krvoyvonxJ64.9Knee osteoarthritis Modified On:01/11/2024 Status:ifbvzdfuaA72.211AGroin strain, right, initial encounter Modified On:11/24/2024 Status:jbtivzdvqA17.001AFracture of right hip Modified On:12/03/2024U Status:agvrmnylfB19.31Right lower quadrant abdominal pain Modified On:04/22/2025 Status:confirmed * Medical History: * Surgical History: S ajay Plates in Back 2011Mesh in Heart 1999cribiform implant 2009cataract excisional biopsy sebaceous cyst right chest wall 12/26/2017Loop recorder ight hip replacement 2024 * Hospitalization/Major Diagno stic Procedure: B ronchitis 2Chest Pain 12/2021Fall 11/2022Syncope 3Chest Pain 05/2023 * Family History: F ather: , Bone cancer, Brain Cancer, multiple sclerosis, diagnosed with Cancer. M other: alive 81 yrs, breast cancer, dementia, diagnosed with Cancer, Diabetes, Hypertension, Heart Disease. B rother(s): , Lung cancer. S ister(s): alive 62 yrs, stroke. S on(s): alive. 1 brother(s) , 1 sister(s) . 3 son(s) - healthy. . * Social History: ???Tobacco Use:?Tobacco Use/Smoking?Patient is a?former smoker ?When did you start smoking??07/16/1982 ?When did you stop smoking??06/15/2021 ?How long has it been since you last smoked? 1-5 years ?Additional Findings: Tobacco Non-User?Current non-smoker ???Drug/Alcohol:?AUDIT-C (Standard)?Did you have a drink containing alcohol in the past year??Yes ?How often did you have a drink containing alcohol in the past year?? Never (0 point) ?How many drinks did you have on a typical daywhen you were drinking in the past year??7 to 9 drinks (3 points) ?How often did you have six or more drinks on one occasion in the past year??4 or more times a week (4 points) ?Points?7 ?Interpretation?Positive * Medications: T akingAlbuterol Sulfate (2.5 MG/3ML) 0.083% Nebulization Solution 3 mL Inhalation four times a day PRN , Notes to Pharmacist: PRNAspirin 81 MG Tablet Chewable 1 tablet Orally Once a day Atorvastatin Calcium 10 MG Tablet 1 tablet Orally Once a day Diclofenac Sodium 75 MG Tablet Delayed Release 1 tablet as needed Orally Twice a day Hyoscyamine Sulfate 0.125 MG Tablet Sublingual 1-2 tabs SL SL every 4 hrs PRN abd pain Ipratropium-Albuterol 0.5-2.5 (3) MG/3ML Solution 3 mL as needed Inhalation every 6 hrs , Notes to Pharmacist: PRNIsosorbide Mononitrate ER 30 MG Tablet Extended Release 24 Hour take 1 tablet by mouth every morning Orally Once a day Keppra(levETIRAcetam) 750 MG Tablet 1 tablet Orally BID Levothyroxine Sodium 125 MCG Capsule 2 capsule in the morning on an empty stomach Orally Once a day Metoprolol Tartrate 50 MG Tablet 1 tablet with food Orally Twice a day Ondansetron 4 MG Tablet Disintegrating 1 tablet on the tongue and allow to dissolve Orally qid , Notes to Pharmacist: PRNTamsulosin HCl 0.4 MG Capsule 1 capsule Orally Once a day tiZANidine HCl 4 MG Tablet 2 tablets Orally at bedtime Topamax(Topiramate) 100 MG Tablet 1 tablet in the AM Orally and 2 tablets at bedtime Ventolin HFA(Albuterol Sulfate HFA) 108 (90 Base) MCG/ACT Aerosol Solution 2 puff as needed Inhalation four times daily PRN , Notes to Pharmacist: PRNViagra 100 MG Tablet 1 tablet as needed Orally Once a day , Notes to Pharmacist: PRNMedication List reviewed and reconciled with the patientTaking Albuterol Sulfate (2.5 MG/3ML) 0.083% Nebulization Solution 3 mL Inhalation four times a day PRN , Notes to Pharmacist: PRNTaking Aspirin 81 MG Tablet Chewable 1 tablet Orally Once a day Taking Atorvastatin Calcium 10 MG Tablet 1 tablet Orally Once a day Taking Diclofenac Sodium 75 MG Tablet Delayed Release 1 tablet as needed Orally Twice a day Taking Hyoscyamine Sulfate 0.125 MG Tablet Sublingual 1-2 tabs SL SL every 4 hrs PRN abd pain Taking Ipratropium-Albuterol 0.5-2.5 (3) MG/3ML Solution 3 mL as needed Inhalation every 6 hrs , Notes to Pharmacist: PRNTaking Isosorbide Mononitrate ER 30 MG Tablet Extended Release 24 Hour take 1 tablet by mouth every morning Orally Once a day Taking Keppra(levETIRAcetam) 750 MG Tablet 1 tablet Orally BID Taking Levothyroxine Sodium 125 MCG Capsule 2 capsule in the morning on an empty stomach Orally Once a day Taking Metoprolol Tartrate 50 MG Tablet 1 tablet with food Orally Twice a day Taking Ondansetron 4 MG Tablet Disintegrating 1 tablet on the tongue and allow to dissolve Orally qid , Notes to Pharmacist: PRNTaking Tamsulosin HCl 0.4 MG Capsule 1 capsule Orally Once a day Taking tiZANidine HCl 4 MG Tablet 2 tablets Orally at bedtime Taking Topamax(Topiramate) 100 MG Tablet 1 tablet in the AM Orally and 2 tablets at bedtime Taking Ventolin HFA(Albuterol Sulfate HFA) 108 (90 Base) MCG/ACT Aerosol Solution 2 puff as needed Inhalation four times daily PRN , Notes to Pharmacist: PRNTaking Viagra 100 MG Tablet 1 tablet as needed Orally Once a day , Notes to Pharmacist: PRNMedication List reviewed and reconciled with the patient * Allergies: P enicillin: unknown - AllergyStrawberry: unknown - Allergyno[Allergies Verified] Objective: * Vitals: W t:208.4lbs, Ht: 73 in, BP:124/70mm Hg, BMI:27.49Index, Ht-cm: 185.42 cm, Wt-k.53 kg. * Examination: ???Physical Exam: ?GENERAL:?well developed, well nourished, in no acute distress.?HEAD:?normocephalic/atraumatic.?EYES:?pupils equal, round and reactive to light, conjunctivae and sclerae normal.?EARS:?no deformity or lesion of external ear, canals and TM appear normal bilaterally, TM's intact, not inflamed with normal light reflex, hearing grossly normal to conversational speech.?NOSE:?no deformity, discharge, inflammation, or lesions. ?MOUTH:?mucous membranes moist, normal oropharynx and posterior pharynx without lesions or exudates, tongue normal, dentition normal.?NECK:?neck supple, no masses or palpable cervical nodes, trachea midline, thyroid without nodules, masses, tenderness, or enlargement.?CHEST:?no chest wall deformity, no chest wall tenderness. ?LUNGS:?normal respiratory effort and clear to auscultation, no wheezes, rales, or rhonchi, good air exchange.?CARDIO:?regular rate and rhythm, normal S1 and S2, nor murmur, rub, or gallop.?PULSES:?normal capillary refill.?ABDOMEN:?soft, non-distended, non-tender, no masses.?MUSCULOSKELETAL:?no deformity or scoliosis noted, normal range of motion, joints normal, no erythema, edema, effusion, or ecchymosis.?EXTREMITY:?no clubbing, cyanosis, edema, or deformity withnormal ROM in both upper and lower bilateral extremities.?NEUROLOGIC:?grossly normal.?SKIN:?no rashes, ulcerations, or suspicious lesions.?LYMPH NODES:?no cervical adenopathy, nodes normal.?MENTAL STATUS:?alert and oriented x3, normal mood and affect.? Assessment: * Assessment: 1.?Essential (primary) hypertension - I10 (Primary)???2.?Primary osteoarthritis of left hip - M16.12???3.?Edema - R60.9??? Plan: * Treatment: Start Doxycycline Monohydrate Tablet, 100 MG, 1 tablet, Orally, bid, 10 days, 20 Tablet;?StartCiprofloxacin HCl Tablet, 500 MG, 1 tablet, Orally, every 12 hrs, 10 days, 20 Tablet.?? Notes: Cleared for OR - No hx CAD, no strokes - Posible boil on Left lower leg - needs u/s make sure not phelbitis??2.?Edema?Imaging: US EVAN DOP LEG LT Notes: possibel phelbitis vs per cyst - calling withupedate?? * Procedure Codes: 3 078F DIAST BP < 80 MM [id number] SYST BP LT 130 MM HG * Preventive Medicine: ??Screenings/Counseling:?BMI ACTION PLAN?Above Normal BMI Follow-up?Dietary management education, guidance, and counseling See treatment section of progress note for complete details of management plan. * * Sign off status: CompletedVisit Status:?CHK (Check Out) true * Provider: Malka Guadalupe ([facility])MD Date: 1 07/25/2024 Generated for Printing/Faxing/eTransmitting on:?06/01/2025 07:44 AM EST History and Physical Notes * HPI (History of Present Illness) CategorySub-CategoryDetailNotesCategory NotesGeneral left hip - Dr Zhang - 06/01 -\ had cardiology appoint ment - getting labs and echo - aess theron with mild LVH No CAD - hx - no stgrokje s - no stents cleared for OR Examination CategorySub-CategoryDetailNotesCategory NotesPhysical ExamGENERAL:well developed, well nourished, in no acute distressHEAD:normocephalic/atraumatic EYES:pupils equal, round and reactive to light, conjunctivae and sclerae normal EARS:no deformity or lesion of external ear, canals and TM appear normal bilaterally, TM's intact, not inflamed with normal light reflex, hearing grossly normal to conversational speechNOSE:no deformity, discharge, inflammation, or lesionsMOUTH:mucous membranes moist, normal oropharynx and posterior pharynx without lesions or exudates, tonguenormal, dentition normalNECK:neck supple, no masses or palpable cervical nodes, trachea midline, thyroid without nodules, masses, tenderness, or enlargementCHEST:no chest wall deformity, no chest wall tendernessLUNGS:normal respiratory effort and clear to auscultation, no wheezes, rales, or rhonchi, good air exchangeCARDIO:regular rate and rhythm, normal S1 and S2, nor murmur, rub, or gallopPULSES:normal capillary refillABDOMEN:soft, non-distended, non-tender, no massesRECTAL:MUSCULOSKELETAL:no deformity or scoliosis noted, normal range of motion, joints normal, no erythema, edema, effusion, or ecchymosisEXTREMITY:no clubbing, cyanosis, edema, or deformity with normal ROM in both upper and lower bilateral extremitiesNEUROLOGIC:grossly normalSKIN:no rashes, ulcerations, or suspicious lesionsLYMPH NODES:no cervical adenopathy, nodes normalMENTAL STATUS:alert and oriented x3, normal mood and affect
--- NOTE | 2025-06-01 06:51 | PC.NURSE ---
0630- During admission process and reviewing of the patient's past medical history, patient states that he had a seizure 4 days ago. Patient states that he hasn't seen a neurologist in over [address] Guadalupe his family doctor prescribes his Topamax. (0638) Dr. Portillo notified of patient's seizure [address] Portillo states that patient needs to see a neurologist before proceeding with surgery. (0646) Dr. Ceja notified of patient's seizure [address] Ceja of conversation with Dr. Portillo. Dr. Ceja agrees with Dr. Portillo's decision. (6850) Patient and patient's family informed of decision to cancel surgery. All verbalized an understanding. (0530) Dr. Ceja at bedside and talks with patient and patient's . Dr. Ceja states that patient will need to see Neurologist before proceeding with surgery. Dr. Ceja's office will reach out to patient to arrange Neurology consult.
--- OUTSIDE RECORDS SUMMARY | 2025-06-01 07:42 | XMS_ITS | Clinical Summary ---
Author Organization [facility] Address [address] [place] [id number] Care Team Providers Care Wireless Sales Associate Name Role Phone Patrice Guadalupe MD Primary Care Provider [phone] Allergies Active AllergyReactionsCriticalityNoted DateCommentsPenicillinsSwelling 10/29/2008 Medications MedicationSigDispense QuantityRefillsLast FilledStart DateEnd DateStatus diltiazem hcl(CARTIA XT 240 MG 24 HR CAP) Take one tablet once iznvb292ctive doxazosin mesylate(CARDURA 4 MG TAB) Take one(1) [...] do a RONI Acute, but ill-defined, cerebrovascular zhwyept4310/29/2008 Overview (10/29/2008): TIA 09/2008: Left sided weakness, [...] of intractable migraine without mention of status czulchrdrof41/16/2009Chest pain, unspecified 10/29/2008 Overview (10/29/2008): Stress Test 2 years ago OK Unspecified essential qsvrpycbnqwb96/16/2009Mixed korvcmnltokpvd91/16/2009 Personal history of tobacco use, presenting hazards to vslwyt6110/29/2008 Overview (10/29/2008): Smoke <1PPD x23 years quit for a few years and now currently smokes <1PPD Other diseases of lung, not elsewhere dqorzeucku52/16/2009Dizziness and lpqsoglsc59/16/2009Generalized osteoarthrosis, unspecified site10/29/2008 Overview (10/29/2008): L4-L5 s/p Neck surgery 2000 Depressive disorder, not elsewhere xkdkumorlb01/16/2009 Social History Tobacco UseTypesPacks/DayYears UsedDateSmoking Tobacco: Every DayCigarettes0.524 Comments:did quit for 9 nont hs @ 2 yrs ago Alcohol UseStandard Drinks/WeekCommentsNo0 (1 standard drink = 0.6 oz pure alcohol)Sex and Gender InformationValueDate RecordedSex Assigned at BirthNot on fileLegal UotHmvy56/02/2012 9:29 AM ESTGender IdentityNot on fileSexual OrientationNot on file Last Filed Vital Signs Vital SignReadingTime TakenCommentsBlood Wkoromyb746/8612/31/2008 12:44 PM EDT (from Extended Vitals)Lbhrc595612/31/2008 12:43 PM EDT(from Extended Vitals) Sdwyuyxavig62 ??C (96.8 ??F)11/03/2008 9:48 AM EDTRespiratory Sqam9339 9:48 AM EDTOxygen Nyzksoxrji630%11/03/2008 9:48 AM EDTInhaled Oxygen Concentration--Mcxcgx022.8 kg (244 lb 4.3 oz)12/31/2008 12:43 PM VZHXizzlb519.4 cm (6' 1 )11/02/2008 2:00 PM EDTBody Mass Index32.23011/02/2008 2:00 PM EDT Plan of Treatment Health MaintenanceDue DateLast DoneCommentsAnxiety Wzeefxrjo05/23/1983Depression Vseyvsbqd09/23/1983HIV Dxjkhyhnw71/23/1983Hepatitis C Btkbwmhal66/23/1983 DTaP,Tdap,Td Vaccine (1 - Tdap)02/05/1984CT Sygyuwtudxdx09/23/2010Cologuard (FIT-DNA)02/04/20103475Rghtvxzpyid15/23/2010Colorectal Cancer Gxneeihmm63/23/2010 Fecal Occult Blood2010Prostate Cancer Screening Qypeshkgrb50/23/2010 Lpckbkhlqpyjc49/23/2010Diabetes Dwizkfcgd69, 11/03/2008, 10/29/2008Lipid Afgrakorw93Pneumococcal Vaccine: 50+ (1 of 1 - PCV)2015Shingrix Vaccine (1 of 2)2015Covid-19 Vaccine (2024-26 season)2025Influenza Vaccine (#1)2025RSV Vaccine (1 - 1-dose 75+ series)02/05/2040 Procedures Procedure NamePriorityDate/TimeAssociated DiagnosisCommentsCOMPREHENSIVE METABOLIC PPLOFJbcloyk55/18/2009 3:03 PM EDT patent foramen ovale LIPID PANEL, MMLYUWBRkmsbqu50/16/2009 12:59 PM EDT 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 Def from Last 3 Months or Most Recently Relevant to Health Maintenance Results * (ABNORMAL) COMP METABOLIC PANEL (12/31/2008 3:03 PM EDT)ComponentValueRef RangeTest MethodAnalysis TimePerformed AtPathologist SignatureProtein, Total 7.56.0 - 8.4 g/dLWYANDOT MEMORIAL [facility]PITAL LABORATORYAlbumin4.43.5 - 5.0 g/dL [facility] LABORATORYCalcium9.48.5 - 10.5 mg/dLWYANDOT [facility]ORIAL [facility]OSPITAL LABORATORYBilirubin, Total0.30.0 - 1.5 mg/dLWYANDOT [facility]ORIAL [facility]OSP[facility] LABORATORYAlkaline Fsciopynenm0847 - 150 U/LCCOMMUNITY REGIONAL MEDICAL [facility] MAIN LABORATORY QEN206 - 40 U/LCGOOD [facility] QPETCCTDRPFoqrryb4187 - 100 mg/dL [facility] DGPTAHZWQUSOE8850 - 25 mg/dLWYANDOT [facility]ORIAL [facility]OSPITAL LABORATORYCreatinine1.210.70 - 1.40 mg/dLWYANDOT MEMORIAL HOSPITAL [facility]ORY Mruqrr123117 - 146 mmol/LCCOMMUNITY REGIONAL MEDICAL CENTER MAIN LABORATORYPotassium4.53.5 - 5.0 mmol/LCCOMMUNITY REGIONAL [facility]ENTER MAIN GBEUCQDQINVmxwbjuv42(L)98 - 110 mmol/LCCOMMUNITY REGIONAL [facility] MAIN CEOKTCOWWSTU55116 - 32 mmol/LCCOMMUNITY REGIONAL MEDICAL [facility]ENTER MAIN LABORATORYAnion Qto113 - 15 mmol/LCCOMMUNITY REGIONAL MEDICAL [facility] MAIN WYLEVUUGCRCIH445 - 50 U/LCGOOD SAM[facility] LABORATORYeGFR->60[facility] eGFR-All Other Races>60.[facility] LABORATORYComment: eGFR (Estimated GFR) Units of [...] StatusEmbre Kuhn MDLABORATORYFinal ResultPerforming OrganizationAddressCity/State/ZIP CodePhone Number [facility] [address] [place] [address] * (ABNORMAL) LIPID PANEL BASIC (10/29/2008 12:59 PM EDT)ComponentValueRef Range Test MethodAnalysis TimePerformed AtPathologist CeiavwanxPbrcgbwfmmln40504 - 149 mg/dLWYANDOT MEMORIAL [facility]OSP[facility] LABORATORYCholesterol, Xhufd822(H)100 - 199 mg/dLWYANDOT [facility]ORIAL [facility] LABORATORYHDL Raobgbbpiup15(L)>45 mg/dLWYANDOT MEMORIAL HOSPITAL LABORATORYVLDL Mbmeppwsvvl279 - 40 mg/dLWYANDOT MEMORIAL HOSPITAL LABORATORYLDL Cholesterol, Ewablgqynk617(H)60 - 129 mg/dLWYANDOT MEMORIAL HOSPITAL LABORATORYFasting Ghax01latMTWYRTIIEGOOD SAM[facility]AN [facility] LABORATORYTC:HDL Ratio6.49(H) 1.00 - 5.00[facility] LABORATORYLDL:HDL Ratio4.78(H)0.50 - 3.55 [facility] LABOR[facility]ORYNon HDL Lfysuxjjotq229(H)90 - 159 mg/dL [facility] LABORATORYSpecimen (Source)Anatomical Location / LateralityCollection Method / VolumeCollection TimeReceived TimeBlood specimen (specimen)BLOOD SPECIMEN / Fmjdtrg1010/29/2008 12:59 PM EDT Narrative Authorizing ProviderResult TypeResult StatusEmbre Kuhn MDLABORATORYFinal ResultPerforming OrganizationAddressCity/State/ZIP CodePhone Number [facility] [address] [place] [address] from Last 3 Months or Most Recently Relevant to Health Maintenance Insurance * Guarantor: Farrukh POOLE TypeRelation to PatientDate of BirthPhone Billing AddressPersonal/AmflrcCwvy1965 [id number] [place] [phone] * Guarantor: Farrukh POOLE TypeRelation to PatientDate of BirthPhone Billing AddressSelf HyhMzkx47 1965 [id number] [place] [phone] Care Teams Team MemberRelationshipSpecialtyStart DateEnd Patrice Guadaluep MD PCP - GeneralFamily Lcnuvryi10/10/15
--- OUTSIDE RECORDS SUMMARY | 2025-06-01 07:43 | XMS_ITS | Encounter Summary ---
Author Organization [facility] Address [address] [place] [address] Care Team Providers Care Curing Machine Operator Name Role Phone Patrice Guadalupe MD Primary Care Provider [phone] Encounter Details DateTypeDepartmentCare Team (Latest Contact Info)Zxudmlfuzms68/12/2025Telephone [facility] [address] [place] [address] Sierra June MA Social History Tobacco UseTypesPacks/DayYears UsedDateSmoking Tobacco: [id number] - mokeless Tobacco: FormerChewQuit: 1985Alcohol UseStandard Drinks/Week VwadnuzkKjr86 (1 standard drink = 0.6 oz pure [...] your partner or ex-partner?No05/27/2023 Emotionally AbusedNot on file3Physically AbusedNot on file05/27/2023 Sexually AbusedNot on file05/27/2023In [...] Assigned at BirthMale 04/21/2023 10:36 AM EDTLegal TdhIriq19/28/2022 1:37 PM ESTGender IdentityMale 04/21/2023 10:36 AM EDTSexual OrientationHeterosexual or Mzwhqehn92/07/2023 10:36 AM EDTdocumented as of this encounter Miscellaneous Notes * Telephone Encounter - Sierra June MA - 05/27/2025 9:15 AM EST Images from the original note were not included. Regarding echo result from : MD Sierra Elise MA Patient echo showed normal left ventricle systolic function but grade 2 diastolic dysfunction and mild valvular heart disease. Given that he still complains of dyspnea on exertion start him on Lasix 40 mg daily and check BMP on Sunday. Regarding surgery, he can proceed with the surgery from the cardiac point of view with necessary anesthesia. He is considered to be at low risk for perioperative cardiac events. It is recommended to watch the fluid intake to avoid fluid overload in presence of underlying diastolic dysfunction. Spoke with patient and he agrees to start lasix. He will have BMP drawn within the next 5-7 days. Order faxed to [facility]. Patient verbalized understanding. Surgery clearance faxed to [facility]. documented in this encounter Plan of Treatment NameTypePriorityAssociated DiagnosesOrder ScheduleBasic metabolic panelLab Routine Diastolic dysfunction Expected: 05/27/2025 (Approximate), Expires: 05/27/2026documented as of this encounter Goals GoalPatient Goal TypeAssociated ProblemsRecent ProgressPatient-Stated?Author Follow your diet plan as advised by your food service assistant Leona Shrestha, RN Follow your diet plan as advised by your food service assistant Leona Etienne, BRISEYDAdocumented as of this encounter Visit Diagnoses Diagnosis Diastolic dysfunction- Primary Unspecified heart disease documented in this encounter Care Teams Team MemberRelationshipSpecialtyStart DateEnd Patrice Guadalupe MD [address] [place] [address] PCP - Rvwvsvj28/7/23documented as of this encounter
--- OUTSIDE RECORDS SUMMARY | 2025-06-01 07:43 | XMS_ITS | Clinical Summary ---
Author Organization [facility] Address [address] [place] [address] Care Team Providers Care Retail Gift Card Merchandising Name Role Phone Patrice Guadalupe MD Primary Care Provider [phone] Allergies Active AllergyReactionsCriticalityNoted DateCommentsPenicillinsAngioedema 04/20/20232087ZaxonxoeNanllcb26/29/6269EvnwuqrknlIxuebgwmfsdJbdv71/06/2023 Medications MedicationSigDispense QuantityRefillsLast FilledStart DateEnd DateStatus topiramate [...] Take 10 mg by mouth in the morning.5Active isosorbide mononitrate ER (Imdur) 30 mg 24 hr tablet Take 30 mg by mouth in the morning.5Active triamcinolone (Kenalog) 0.1 % cream Apply 0.01 Applications topically two times daily.5Active furosemide (Lasix) 40 mg tablet Indications:Diastolic dysfunctionTake 1 tablet (40 mg) by mouth in the morning. 90 tablet ctive Active Problems ProblemNoted DateDiagnosed DatePre-op /07/2025vascular necrosis of bone of right hip05/21/2025AD (coronary artery disease)05/21/2025losed fracture of neck of femur05/21/2025losed subcapital fracture of right femur 05/21/2025Iron deficiency zjuhqq2105/21/20259761Qezljhgyhwjy75/06/2025Moderate protein jtjekdpwvuag43/06/0913Gcxjkmnvxmqp61/06/2025Primary localized osteoarthritis of pelvic region and thigh05/21/2025Rash107/21/2024Right lower quadrant pain 05/21/2025Right shoulder pain05/21/2025S/P total hip vhnkaubcjpal78/06/2025 Ngcejeu6105/21/2025Stasis aiygfkmgug12/06/2025Pure xwcbhrnuivrdtknjezht29/19/2025 Osteoarthritis of knee03/05/20242400Oelnuhdisw54OVID-19007/17/2023 07/17/20236065Pzzbitppopayms30ysphagia Shortness of dqaixv48EdemaEpigastric pain Groin gkxwyu10Lumbar radicular pain Other instability, left ankleOther specified congenital deformities of feetain in left ankle and joints of left footneumoniarimary osteoarthritis of left hipSprain of left ankle07/17/2023 07/17/2023Syncope and /02/2024 Assessment & Plan (03/28/2024 10:08 AM EDT): Denies any episodes of syncope or collapse since last visit no seizure activity states overall he is doing well. Adrenal uhkvdimepzklx59/10/2023Mobitz (type) I (Wenckebach's) atrioventricular block04/20/2023 Assessment & Plan (03/28/2024 10:08 AM EDT): Event monitor reviewed no concerning arrhythmias, heart block or pauses Acute gout/12/20220063Aoswlrrgowyu48/06/202310/llergic rhinitis 10enign prostatic hyperplasia without lower urinary tract abkidldp44ervical izyhotbwrsbcn16 Diverticulitis of colonFibromyalgia Sruoceb24astroesophageal reflux Uepqsilu33Hypo-osmolality and jdsqzfdkqdfe77 Intrinsic lbfgzo30Irritable bowel stafniwa52 Low back painMigraine, unspecified, not intractable, without status gvzpyuskmnc86Movement giypblxk79 Hereditary and idiopathic neuropathy, tioshfhdvzh69Myoclonus Obstructive sleep apnea znmotkkn31isc displacement, ucqdpv01Overweighteripheral venous blkoidqjjwity03Restless legs ucnidego89/06/2023 04/20/20232543Wrpjnuo87/06/2023cquired lrhjkrnjrmiagv33Recurrent ruzmtkth00/08/2017Depressive disorder, not elsewhere ibapjrjxbh41/16/2009 04/20/2023izziness and dopjlgmrv01eneralized osteoarthrosis, unspecified site Overview (04/20/2023): L4-L5 s/p Neck surgery 2001 Mixed Assessment & Plan (03/28/2024 10:07 AM EDT): Lipid abnormalities are well-controlled with Lipitor 10 mg daily Liver function normal No concerning symptoms Ostium secundum type atrial septal soxmyp47 Overview (04/20/2023): OSH Echo 10/20/2008 per Patient [...] history of tobacco use, presenting hazards to xydjll8110/29/2008 04/20/2023 Overview (04/20/2023): Smoke <1PPD x23 years [...] GI Other diseases of lung, not elsewhere bykwtfgbrk924Benign essential kdlppwmxwkna52/16/2009 Assessment & Plan (03/28/2024 10:07 AM EDT): Hypertension is currently well-controlled 132/83 Denies any lightheadedness, dizziness, syncope. Continue metoprolol and isosorbide. Resolved Problems ProblemNoted DateDiagnosed DateResolved DateNSTEMI (non-ST elevated myocardial infarction)/01/20257609Hijrmfsqakrv19/06/202310/OPD exacerbation /Hypokalemia/04/2023 Encounters DateTypeDepartmentCare KdknFbaoogohbds22/12/2025Telephone [facility] [address] [place] [address] Sierra June MA 05/22/2025 1:00 PM ESTOffice Visit [facility] [address] [place] [phone] Reid Shea MD Pre-op evaluation (Primary Dx); Atypical chest pain; APPIAH (dyspnea on exertion); Shortness of breath; Syncope, unspecified syncope type; Benign essential hypertension; Mixed hyperlipidemia; Alcoholism (CMS/HCC)05/10/2025Orders Only [facility] [address] [place] [phone] Grabiel Collado MD 04/27/2025 7:30 AM EDTAncillary Procedure [facility] [address] [place] [phone] Awareness of dmwufxunuu70/25/2025 2:00 PM EDTAncillary Procedure [facility] [address] [place] [phone] Awareness of akllhnvhky47/25/2025Orders Only [facility] [address] [place] [phone] Grabiel Collado MD from Last 3 Months Family History RelationNameStatusCommentsFatherDeceasedMotherAlive Social History Tobacco UseTypesPacks/DayYears UsedDateSmoking Tobacco: CsebomUvykxypwon1505383 - mokeless Tobacco: FormerChewQuit: 1985 Tobacco Cessation:Counseling Given: Not Answered Alcohol UseStandard Drinks/MzocFzlafobxZhm75 (1 standard drink = 0.6 oz pure [...] of Food in the Last YearNot on file11/12/2023Sex and Gender InformationValueDate RecordedSex Assigned at PmwbxFavf49/07/2023 10:36 AM EDTLegal PhnFsrx48/28/2022 1:37 PM ESTGender KddvmmewUyxl94/07/2023 10:36 AM EDTSexual Orientation Heterosexual or Iuvrngkk01/07/2023 10:36 AM EDT Last Filed Vital Signs Vital SignReadingTime TakenCommentsBlood Zkyyvahk854/8611 1:06 PM EST Tbvyo470605/22/2025 1:06 PM SUBEtasurkslxb34.6 ??C (97.9 ??F)05/28/2023 5:00 PM ESTRespiratory Pwxc637110/15/2023 12:13 PM EDTOxygen Zpwdlkqjnz80%05/22/2025 1:06 PM ESTInhaled Oxygen Concentration--Jspuaq630 kg (223 lb)10/01/2024 12:40 PM EDT Cvkpjs739.4 cm (6' 1 )05/22/2025 1:06 PM ESTBody Mass Index29.42010/01/2024 12:40 PM EDT Plan of Treatment Health MaintenanceDue DateLast DoneCommentsCT Yxmnjegqwhjw1965Colonoscopy 1965Colorectal Cancer Aeamoapqb1965FIT-DNA1965FIT1965 FOBT1965Medicare Annual Wellness (AWV)1965 0371Uiymrofpdrwdr1965 Depression Hszutjtph00/23/1977Adult Zyvetbo7502/04/1987Zoster Vaccines (1 of 2) 2015Pneumococcal Vaccine: Pediatrics [...] your diet plan as advised by your net architect Leona Shrestha, BRISEYDA Follow your diet plan as advised by your net architect Leona Etienne, BRISEYDA Medical Devices ImplantedTypeAreaManufacturerDevice IdentifierShelf Expiration DateModel / Serial / LotMonitor,Cardiac,Lux,Dxii+[facility] - [id number] - [id number] Implanted:Qty: 1 on 10/15/2023 by Thong Gabriel [facility] [place] [facility] CenterImplantable Loop RecorderBoston Zbtogxuxhj00/13/[id number] / [id number] / Procedures Procedure NamePriorityDate/TimeAssociated DiagnosisCommentsECG 12-LEADRoutine 05/22/2025 1:46 PM EST Pre-op evaluation Atypical chest pain APPIAH (dyspnea on exertion) ECG 12 LEAD UNIT ADYZLWZVZZjngmco11/07/2025 1:05 PM EST Pre-op evaluation CARDIAC DEVICE CHECK CHECK - WTZTOFKzgmlak95/27/2025 5:32 PM EDT Awareness of heartbeats CARDIAC DEVICE CHECK - REMOTE - LOOP RECORDER (ILR)Urqkuqf1605/10/2025 12:00 AM EDTCARDIAC DEVICE CHECK CHECK - ECZKSSObvuzgp47/27/2025 3:13 PM EDT Awareness of heartbeats CARDIAC DEVICE CHECK - REMOTE - LOOP RECORDER (ILR)Ussxfia3503/09/2025 12:00 AM EDTfrom Last 3 Months Results * ECG 12 lead (05/22/2025 1:46 PM EST)Specimen (Source)Anatomical Location / LateralityCollection Method / VolumeCollection TimeReceived Time Narrative Reid Shea MD - 05/22/2025 1:46 PM EST Normal sinus rhythm, heart rate 64 bpm, low voltage QRS, borderline EKG Authorizing ProviderResult TypeResult StatusReid Shea MDECG ORDERABLESFinal Result * ECG 12 lead unit performed (05/22/2025 1:05 PM EST)Specimen (Source)Anatomical Location / LateralityCollection Method / VolumeCollection TimeReceived Time Narrative Authorizing ProviderResult TypeResult Danita SOTOG ORDERABLESFinal Result * CARDIAC DEVICE CHECK - REMOTE - LOOP RECORDER (ILR) (05/11/2025 5:32 PM EDT) Only the most recent of2 resultswithin the time period is included. Specimen (Source)Anatomical Location / LateralityCollection Method / Volume Collection TimeReceived Time Narrative Authorizing ProviderResult TypeResult StatusBlair Hurstubb MDCV IMPLANTABLE CARDIAC DEVICE PROCEDURESFinal ResultPerforming OrganizationAddressCity/State/ZIP Code Phone Number CPACS * Cardiac device check - Remote loop recorder (ILR) (05/10/2025 12:00 AM EDT) Only the most recent of2 resultswithin the time period is included. Anatomical RegionLateralityModalityOtherSpecimen (Source)Anatomical Location / LateralityCollection Method / VolumeCollection TimeReceived Time05/10/2025 Narrative Authorizing ProviderResult TypeResult StatusGrabiel Collado MDCV IMPLANTABLE CARDIAC DEVICE PROCEDURESFinal Result from Last 3 Months Insurance Advance Directives * Full Code (Latest Code Status on File) Date ActivatedDate BhwprqaqypoPlqmupod44/12/2023 11:30 PM05/28/2023 7:45 PM * Full Code Date ActivatedDate RrjakknezswOncxowjx37/6/2023 7:26 PM10 6:28 PM Care Teams Team MemberRelationshipSpecialtyStart DateEnd Date Patrice Guadalupe MD [address] [place] [address] PCP - Ngtbqei61/7/23
--- OUTSIDE RECORDS SUMMARY | 2025-06-01 07:43 | XMS_ITS | Clinical Summary ---
Author Organization [facility] Address [address] [place] [address] Care Team Providers Care Training And Documentation Specialist Name Role Phone Unavailable Primary Care Provider Unavailabl e Allergies Active AllergyReactionsCriticalityNoted DateCommentsPenicillinsAngioedema, Swelling,Braptoz8510/29/2008 Swollen throat Medications MedicationSigDispense QuantityRefillsLast FilledStart DateEnd [...] 2 TABLETS BY MOUTH EVERY DAY AT WHTEZIT28/01/2025Active Topamax 100 MG tablet 1 tablet in [...] Problems No known active problems Encounters DateTypeDepartmentCare YpkiHiprqgeaold06/10/2025 11:20 AM EDTOffice Visit [facility] [place] [facility] [address] [place] [address] Katie Rosen PA Stasis dermatitis of both legs (Primary Dx); Encounter for removal of sutures; Rash and other nonspecific skin tobrolmp66/10/2025amboo flowsheet [facility] [address] [place] [address] Katie Rosen PA 04/24/20254999Amhocv56/08/2025Results Follow-Up [facility] [address] [place] [address] Katie Rosen PA Dermatopathology exam04/13/2025 11:10 AM EDTOffice Visit [facility] [address] [place] [address] Katie Rosen PA Rash and other nonspecific skin ejqjahvn69/29/2025amboo flowsheet [facility] [place] [facility] [address] [place] [address] Katie Rosen PA 04/13/20250603Tplofc72/25/2025Telephone [facility] [address] [place] [address] Liliya Mayfield LPN Care Enuauzeuhogu66/22/2025 12:20 PM EDTOffice Visit [facility] [place] [facility] [address] [place] [phone] Katie Rosen PA Rash and other nonspecific skin eruption (Primary Dx)03/06/2025amboo flowsheet [facility] [address] [place] [phone] Katie Rosen PA 03/06/2025Travelfrom Last 3 Months Social History Tobacco UseTypesPacks/DayYears UsedDateSmoking Tobacco: FormerCigarettes Smokeless Tobacco: Never Tobacco Cessation:Counseling Given: Not Answered Alcohol UseStandard Drinks/WeekCommentsYes0 (1 standard drink = 0.6 oz pure alcohol)Sex and Gender InformationValueDate RecordedSex Assigned at BirthNot on fileLegal SbuJzfw8611/13/2022 8:33 PM EDTGender IdentityNot on fileSexual OrientationNot on file Last Filed Vital Signs Vital SignReadingTime TakenCommentsBlood Bxqdxmof122/8755704/25/2022 12:00 PM EDT Pulse--Temperature--Respiratory Rate--Oxygen Saturation--Inhaled Oxygen Concentration--Cdueln622 kg (238 lb)04/25/2022 12:00 PM XZVXvcbpm899 cm (6' 2 ) 04/25/2022 12:00 PM EDTBody Mass Index30.561 12:00 PM EDT Plan of Treatment DateTypeDepartmentCare Team (Latest Contact Info)Sfsglntliax21/11/2025 11:00 AM ESTOffice Visit [facility] [address] [facility] [place] [phone] Katie Rosen PA [address] [place] [phone] Procedures Procedure NamePriorityDate/TimeAssociated DiagnosisCommentsSKIN / NAIL BIOPSY Pekrene9104/13/2025 11:11 AM EDT Rash and other nonspecific skin eruption DERMATOPATHOLOGY RBIHNtoczwt37/29/2025 12:00 AM EDT Rash and other nonspecific [...] LOWER LEG - ANTERIOR [facility] ICD10 CodeI83.376BNTTGT DIAGNOSTICSPROTOCOLP - PUNCHAURORA DIAGNOSTICSFinal DiagnosisSPONGIOTIC DERMATITIS WITH [...] inflammation. ??There is mild epidermal spongiosis. [facility] VOUEVMIHBDWVPL84630*1[facility] DIAGNOSTICSSpecimen (Source)Anatomical Location / LateralityCollection Method / VolumeCollection TimeReceived TimeSkin Topography unknown / Yxnoywd6904/13/2025 11:11 AM EDTComment:Differential Diagnosis: scabies vs. Stasis dermatitis vs. Atopic dermatitis vs. Contact dermatitis Narrative Authorizing ProviderResult TypeResult StatusRyBellville Medical Center PATHOLOGY ORDERABLESFinal ResultPerforming OrganizationAddressCity/State/ZIP CodePhone Number [facility] from Last 3 Months Insurance
--- OUTSIDE RECORDS SUMMARY | 2025-06-01 07:43 | XMS_ITS | Clinical Summary ---
Author Organization [employer] tem Address [id number] [address] [place] [address] Care Team Providers Care Sediment Remediation Consultant Name Role Phone Patrice Guadalupe MD Primary Care Provider [phone] Allergies Active AllergyReactionsCriticalityNoted NtqtVmhnamsjIqsnzdhlick44/08/2017 Swollen throat Wcecmlhnns07/08/2017 Swollen throat and hives Medications MedicationSigDispense QuantityRefillsLast [...] times a day.Active Active Problems ProblemNoted DateDiagnosed AphgBgybrlgf20/08/2017Recurrent /08/2017 Migrainous headache without aura07/23/2016COPD (chronic obstructive pulmonary disease)07/23/2016Acquired uobpzsatxncblb12/08/2017Benign essential hypertension 07/23/2016 Social History Tobacco UseTypesPacks/DayYears UsedDateSmoking Tobacco: Every DayCigarettes Alcohol UseStandard Drinks/WeekCommentsNot Asked0 (1 standard drink = 0.6 oz pure alcohol)recently quit drinking in Mar. would drink average 5-8 beers a day ChildcareAnswerDate UvxeiayuPymfzwaqwSlauzxn75/12/2019EmploymentAnswerDate GcuijkebVfvrutfhegFiqocvt57/12/2019Purpose - LifeAnswerDate RecordedPurpose and direction in qwbdNbzjtny35/11/2021Sex and Gender InformationValueDate Recorded Sex Assigned at BirthNot on fileLegal BbbFoei1702/18/2015 11:37 AM EDTGender IdentityNot on fileSexual OrientationNot on file Last Filed Vital Signs Vital SignReadingTime TakenCommentsBlood Ddasizfm306/8407/26/2016 7:55 AM EST Jeuls875507/26/2016 7:55 AM WQEVinuioxidzh99.3 ??C (97.3 ??F)07/26/2016 7:55 AM ESTRespiratory Vnku653807/26/2016 7:55 AM ESTOxygen Teyetopbli17%07/26/2016 7:55 AM ESTInhaled Oxygen Concentration--Bwdizr70.6 kg (201 lb 15.1 oz)07/26/2016 5:01 AM AYIOkgtjo369.4 cm (6' 1 )07/23/2016 5:10 PM ESTBody Mass Index26.64 07/23/2016 5:10 PM EST Plan of Treatment Not on file Medical Devices Not on file Insurance Advance Directives * Full Code (Latest Code Status on File) Date ActivatedDate InactivatedComments07/23/2016 6:19 PM07/26/2016 2:20 PM Care Teams Team MemberRelationshipSpecialtyStart DateEnd Date Patrice Guadalupe MD PCP - General07/23/16
--- OUTSIDE RECORDS SUMMARY | 2025-06-01 07:45 | XMS_ITS | Patient Health Record ---
Author Organization [facility] in [place] Address [address] [place] [address] Care Team Providers Care Farm Management Agent Name Role Phone Michael Lakhani Primary Care Provider Allergies Allergen (clinical drug ingredient) Drug/Non Drug Allergy documented on EMR Reaction Allergy Type Onset Date Status strawberry allergenic extract [place] (uncoded) unknown Allergy ActivePenicillinunknownDrug AllergyActive Results Component Value Reference Range Notes US APPENDIX Reviewed date:04/23/2025 12:42:28 PM Interpretation: Performing Lab: Notes/Report: Source Facility: [place] [address] Ultrasound Report Signed Patient: REHAN POOLE MR#: [id number] : 1965 Acct:[id number] Age/Sex: 60 / M ADM Date: 04/22/25 Loc: US Attending Dr: Pee Lakhani M.D. Ordering Physician: Pee Lakhani M.D. Date of Service: 04/22/25 Procedure(s): US appendix Accession Number(s): [id number] cc: Pee Lakhani M.D. [place] [address] Patient Name: REHAN POOLE MRN: [id number] date: 1965 Sex: M Assigned Patient Location: US Current Patient Location: US Accession/Order Number: [id number] Exam Date: 04/22/2025 15:30 Report Date: 04/22/2025 19:19 At the request of: PEE LAKHANI MD Procedure: US appendix Targeted ultrasound right lower quadrant INDICATION: Right lower quadrant pain COMPARISON: None FINDINGS: Peristalsing bowel loops. Normal appendix not visualized. No loculated fluid collection within the dyyxn-zu-oecp. US/US appendix IMPRESSION: Appendix not visualized. Recommend further evaluation as clinically warranted. Impression dictated by: Nikos Rivera M.D. 04/22/2025 7:19 PM Dictation Location: [place] [address] Electronically authenticated by: [id number] Y Date: 04/22/2025 19:19 Dictated By: Nikos Rivera M.D. Signed By: 04/22/251920 DD/ 18 TD/TT: Child Welfare Consultant: XR femur RT 2V Reviewed date:12/01/2024 12:48:28 PM Interpretation: Performing Lab: Notes/Report: Source Facility: [place] [address] XRay Report Signed Patient: REHAN POOLE MR#: [id number] : 1965 Acct:[id number] Age/Sex: 59 / M ADM Date: 12/01/24 Loc: ER Attending Dr: Ordering Physician: Radha Payton Date of Service: 12/01/24 Procedure(s): XR femur RT 2V Accession Number(s): [id number] cc: Pee Lakhani M.D.; Radha Payton [place] [address] Patient Name: REHAN POOLE MRN: [id number] date: 1965 Sex: M Assigned Patient Location: ER Current Patient Location: ER Accession/Order Number: [id number] Exam Date: 12/01/2024 11:12 Report Date: 12/01/2024 [...] Yeung M.D. 12/01/2024 11:14 AM Dictation Location: [place] [address] Electronically authenticated by: [id number] Y Date: 12/01/2024 11:14 Dictated By: Reinaldo Yeung M.D. Signed By: 12/01/24 1117 DD/ 1114 TD/TT: Child Welfare Consultant: Prothrombin Time INR Reviewed date:05/20/2025 04:50:58 PM Interpretation: Performing Lab: Notes/Report: [facility] , Prothrombin Time 9.9 9.0-11.6 sec INR0.93 DESIRED INR: 2.0-3.0 CONDITIONS NOT LISTED BELOW 2.5-3.5 FOR PROSTHETIC HEART VALVE REPLACEMENT 2.5-3.5 RECURRENT THROMBOSIS Performing Lab:see noteML - [facility] LBErythrocyte Sedimentation Rate Reviewed date:12/01/2024 12:48:28 PM Interpretation: Performing Lab: Notes/Report: [facility] ,Erythrocyte Sedimentation Rate46<=20 mm/hrPerforming Lab:see noteML - [facility] LBPROF 14(COMP METB) Reviewed date:12/01/2024 12:48:28 PM Interpretation: Performing Lab: Notes/Report: [facility] ,Hxhazp924100-667 mmol/LPotassium3.93.5-5.1 mmol/FVygbtjqa3216-856 mmol/LCarbon Uzwvzrz85.521.0-32.0 mmol/LAnion Gap14.3Kdtfwpb8609-125 mg/dLBlood Urea Nitrogen 12.07.0-18.0 mg/dLCreatinine1.070.70-1.30 mg/dLEstimated GFR ( Rehana>60 >=60 mL/min/1.73m 2Estimated GFR (Non- Francy>60>=60 mL/min/1.73m 2BUN Creatinine Ratio11.2Hbdastg4.78.5-10.1 mg/dLBilirubin Total0.60.2-1.0 mg/dL Aspartate Amino Jgbjzfnlvxh7111-07 U/LAlanine Zqfbfvdqlsqyksfd23788-97 U/L Alkaline Plcftqxrhwi37981-175 U/LTotal Protein7.06.4-8.2 g/dLAlbumin Level3.4 3.4-5.0 g/dLGlobulin3.6Albumin Globulin Ratio0.9Performing Lab:see noteML - [facility] LBCRP Reviewed date:12/01/2024 12:48:28 PM Interpretation: Performing Lab: Notes/Report: [facility] ,C Reactive Protein2.11<=0.50 mg/dLPerforming Lab:see noteML - [facility] LBCBC AUTO DIFF Reviewed date:12/01/2024 12:48:28 PM Interpretation: Performing Lab: Notes/Report: [facility] ,White Blood Count9.74.0-11.0 10 3/uLRed Blood Count4.144.70-6.10 10 6/uL Lbwryiiapo96.214.0-18.0 g/aVYzgsmzmzkm72.242.0-54.0 %Mean Corpuscular Imiyug81.1 80.0-94.0 fLMean Corpuscular Cuhbovysor27.325.9-34.0 pgMean Corpuscular HGB Conc 35.329.9-35.2 g/dLRed Cell Distribution Width12.711.0-15.0 %Platelet Auhzg873 150-450 10 3/uLMean Platelet Volume9.19.5-13.5 fLNeutrophils Percent Auto64.8 43.0-75.0 %Lymphocytes Percent Auto26.620.5-60.0 %Monocytes Percent Auto6.61.7- 12.0 %Eosinophils Percent Auto0.70.9-7.0 %Basophils Percent Auto0.30.2-2.0 % Immature Granulocytes Pct Auto1.00.0-0.5 %Neutrophils Absolute Auto6.31.4-6.5 10 3/uLLymphocytes Absolute Auto2.61.2-3.8 10 3/uLMonocytes Absolute Auto0.60.3-0.8 10 3/uLEosinophils Absolute Auto0.10.0-0.7 10 3/uLBasophils Absolute Auto0.00.0- 0.1 10 3/uLImmature Granulocytes Abs Auto0.100.00-0.03 10 3/uLPerforming Lab:see noteML - [facility] LBSGPT Reviewed date:05/22/2025 04:06:09 PM Interpretation: Performing Lab: Notes/Report: [facility] ,Alanine Ydttpxehtoojdaag1832-16 U/LPerforming Lab:see note - [facility] LBSGOT Reviewed date:05/22/2025 04:06:09 PM Interpretation: Performing Lab: Notes/Report: [facility] ,Aspartate Amino Qzxxivpaoon3091-64 U/LPerforming Lab:see note - [facility] LBLIPID PROFILE Reviewed date:05/22/2025 04:06:09 PM Interpretation: Performing Lab: Notes/Report: [facility] ,Exmzrnqiandzm01<=150 mg/hTUdqglplxomw194<=200 mg/dLHDL Oribyilznya2848-22 mg/dL > or =60 mg/dl - LOW CARDIOVASCULAR RISK <40 mg/dl - HIGH CARDIOVASCULAR RISK LDL Cholesterol Ceqhwebuol44.0 <100 mg/dl OPTIMAL 100-129 mg/dl NEAR OR ABOVE OPTIMAL 130-159 mg/dl BORDERLINE HIGH 160-189 mg/dl HIGH >190 mg/dl VERY HIGH VLDL ALSXWYNIBQM16.6Chol HDL Ratio1.9 3.3 - 4.4 LOW RISK 4.4 - 7.1 AVERAGE RISK 7.1 - 11.0 MODERATE RISK >11.0 HIGH RISK Performing Lab:see note - [facility] LBXR chest 2V Reviewed date:05/20/2025 04:50:58 PM Interpretation: Performing Lab: Notes/Report: Source Facility: [facility]-[address] [place] [address] [address] XRay Report Signed Patient: REHAN POOLE MR#: [id number] : 1965 Acct:[id number] Age/Sex: 60 / M ADM Date: 05/20/25 Loc: PST Attending Dr: Kyle Ceja D.O. Ordering Physician: Kyle Ceja Date of Service: 05/20/25 Procedure(s): XR chest 2V Accession Number(s): [id number] cc: Pee Lakhani M.D.; Kyle Ceja [place] [address] Patient Name: REHAN POOLE MRN: [id number] date: 1965 Sex: M Assigned Patient Location: [place] Current Patient Location: [place] Accession/Order Number: [id number] Exam Date: 05/20/2025 11:50 Report Date: 05/20/2025 12:42 At the request of: KYLE CEJA DO Procedure: XR chest 2V PA AND LATERAL CHEST: CLINICAL HISTORY: Preop exam COMPARISON: 09/16/2023 FINDINGS: Unremarkable cardiomediastinal. Lungs clear. No effusion or pneumothorax. XR/XR chest 2V IMPRESSION: NO ACUTE CARDIOPULMONARY ABNORMALITY. Impression dictated by: Nikos Rivera M.D. 05/20/2025 12:42 PM Dictation Location: [place] [address] Electronically authenticated by: [id number] Y Date: 05/20/2025 12:42 Dictated By: Nikos Rivera M.D. Signed By: 05/20/25 1244 DD/ 1242 TD/TT: Child Welfare Consultant:PTT Reviewed date:05/20/2025 04:50:58 PM Interpretation: Performing Lab: Notes/Report: [facility] ,Partial Thromboplastin Time26.622.3-36.2 secPerforming Lab:see noteML - [facility] LBPROF 14(COMP METB) Reviewed date:05/20/2025 04:50:58 PM Interpretation: Performing Lab: Notes/Report: [facility] ,Cvlwgj988735-845 mmol/LPotassium4.73.5-5.1 mmol/IEeocwhto99505-415 mmol/LCarbon Dxikxhp72.821.0-32.0 mmol/LAnion Gap14.1Atvcryp7981-701 mg/dLBlood Urea Nitrogen 7.07.0-18.0 mg/dLCreatinine0.920.70-1.30 mg/dLEstimated GFR ( Rehana>60 >=60 mL/min/1.73m 2Estimated GFR (Non- Francy>60>=60 mL/min/1.73m 2BUN Creatinine Ratio7.1Vuahfpn6.38.5-10.1 mg/dLBilirubin Total0.50.2-1.0 mg/dL Aspartate Amino Evtotzvkhix2158-31 U/LAlanine Rcllixwudnvdgttd7892-07 U/L Alkaline Fpnbtfurylr72859-344 U/LTotal Protein6.76.4-8.2 g/dLAlbumin Level3.4 3.4-5.0 g/dLGlobulin3.3Albumin Globulin Ratio1.0Performing Lab:see noteML - [facility] LBCBC AUTO DIFF Reviewed date:05/20/2025 04:50:58 PM Interpretation: Performing Lab: Notes/Report: [facility] ,White Blood Count7.14.0-11.0 10 3/uLRed Blood Count3.934.70-6.10 10 6/uL Ojrgokkmrq70.014.0-18.0 g/gGQhefrrqzax83.742.0-54.0 %Mean Corpuscular Kzsmla52.5 80.0-94.0 fLMean Corpuscular Owehvyztxt07.125.9-34.0 pgMean Corpuscular HGB Conc 33.629.9-35.2 g/dLRed Cell Distribution Width13.311.0-15.0 %Platelet Tbyii242 150-450 10 3/uLMean Platelet Volume9.69.5-13.5 fLNeutrophils Percent Auto62.3 43.0-75.0 %Lymphocytes Percent Auto25.820.5-60.0 %Monocytes Percent Auto7.71.7- 12.0 %Eosinophils Percent Auto2.50.9-7.0 %Basophils Percent Auto0.60.2-2.0 % Immature Granulocytes Pct Auto1.10.0-0.5 %Neutrophils Absolute Auto4.51.4-6.5 10 3/uLLymphocytes Absolute Auto1.81.2-3.8 10 3/uLMonocytes Absolute Auto0.60.3-0.8 10 3/uLEosinophils Absolute Auto0.20.0-0.7 10 3/uLBasophils Absolute Auto0.00.0- 0.1 10 3/uLImmature Granulocytes Abs Auto0.080.00-0.03 10 3/uLPerforming Lab:see noteML - [facility] LBXR hip RT 2V w/ pelvis Reviewed date:12/01/2024 12:48:28 PM Interpretation: Performing Lab: Notes/Report: Source Facility: [place] [address] [place] [address] XRay Report Signed Patient: REHAN POOLE MR#: [id number] : 1965 Acct:[id number] Age/Sex: 59 / M ADM Date: 12/01/24 Loc: ER Attending Dr: Ordering Physician: Radha Payton Date of Service: 12/01/24 Procedure(s): XR hip RT 2V w/ pelvis Accession Number(s): [id number] cc: Pee Lakhani M.D.; Radha Payton [place] [address] Patient Name: REHAN POOLE MRN: [id number] date: 1965 Sex: M Assigned Patient Location: ER Current Patient Location: ER Accession/Order Number: [id number] Exam Date: 12/01/2024 11:14 Report Date: 12/01/2024 [...] Yeung M.D. 12/01/2024 11:16 AM Dictation Location: [place] [address] Electronically authenticated by: [id number] Y Date: 12/01/2024 11:16 Dictated By: Reinaldo Yeung M.D. Signed By: 12/01/24 1119 DD/ 1116 TD/TT: Child Welfare Consultant:CT PELVIS WO CON Reviewed date:12/01/2024 01:54:46 PM Interpretation: Performing Lab: Notes/Report: Source Facility: [place] [address] CT Scan Report Signed Patient: REHAN POOLE MR#: [id number] : 1965 Acct:[id number] Age/Sex: 59 / M ADM Date: 12/01/24 Loc: ER Attending Dr: Ordering Physician: Radha Payton Date of Service: 12/01/24 Procedure(s): CT pelvis wo con Accession Number(s): [id number] cc: Pee Lakhani M.D. [place] [address] Patient Name: REHAN POOLE MRN: [id number] date: 1965 Sex: M Assigned Patient Location: ER Current Patient Location: ER Accession/Order Number: [id number] Exam Date: 12/01/2024 12:55 Report Date: 12/01/2024 [...] Traylor M.D. 12/01/2024 1:06 PM Dictation Location: [place] [address] Electronically authenticated by: [id number] Y Date: 12/01/2024 13:06 Dictated By: Halie Traylor M.D. Signed By: 12/01/24 1309 DD/ 1306 TD/TT: Child Welfare Consultant:Prothrombin Time INR Reviewed date:12/01/2024 12:48:28 PM Interpretation: Performing Lab: Notes/Report: [facility] ,Prothrombin Time9.99.0-11.6 secINR0.93 DESIRED INR: 2.0-3.0 CONDITIONS NOT LISTED BELOW 2.5-3.5 FOR PROSTHETIC HEART VALVE REPLACEMENT 2.5-3.5 RECURRENT THROMBOSIS Performing Lab:see noteML - [facility] LBCA echo doppler complete Reviewed date:05/23/2025 03:36:56 PM Interpretation: Performing Lab: Notes/Report: Source Facility: [facility]-[address] [place] [address] [place] [address] Cardiology Report Signed Patient: REHAN POOLE MR#: [id number] : 1965 Acct:[id number] Age/Sex: 60 / M ADM Date: 05/22/25 Loc: LAB Attending Dr: Elisabeth Shea M.D. Ordering Physician: Elisabeth Shea M.D. Date of Service: 05/22/25 Procedure(s): CA echo doppler complete Accession Number(s): [id number] cc: Pee Lakhani M.D.; Elisabeth Shea M.D. Patient Name: REHAN POOLE MR#: [id number] : 1965 Exam Date: 05/22/2025 Ordering Doctor: DR. ELISABETH SHEA M.D. ECHOCARDIOGRAM REPORT PROCEDURE: CA ECHO DOPPLER COMPLETE INDICATIONS: Pre op, Shortness of breath COMPARISON: None. DESCRIPTION: COMPLETE ECHOCARDIOGRAM Real-time transthoracic echocardiography with 2D, M-mode, spectral and color flow Doppler performed. QUALITY: Technical quality was adequate. LEFT VENTRICLE: Normal chamber size. Borderline left ventricular hypertrophy. Global left ventricular systolic function is normal without wall motion abnormalities. Calculated left ventricular ejection fraction is 65%. LV EF: DIASTOLIC: Grade 2 diastolic dysfunction ATRIAL SEPTUM: Visually appears intact LEFT ATRIUM: Mild dilatation. RIGHT ATRIUM: Normal chamber size. RIGHT VENTRICLE: Normal chamber size. Normal right ventricular systolic function. TRICUSPID VALVE: Normal mobility and thickness. No stenosis with trivial regurgitation. No evidence of pulmonary hypertension. RVSP 34mmHg. MITRAL VALVE: Normal mobility and thickness. No evidence of mitral valve stenosis. There is no mitral annular calcification. Mild mitral regurgitation. AORTIC VALVE: Normal trileaflet appearance. No visible sclerosis. Normal leaflet mobility. No evidence of aortic valve stenosis. Trivial aortic regurgitation. AORTIC ROOT: Normal diameter and appearance.Measuring 3.1cm PULMONIC VALVE: Normal thickness and mobility. No stenosis. No regurgitation. PERICARDIUM: No evidence of pericardial effusion. IVC: Collapes with inspirations. Normal size. PLEURA: CONCLUSION: Borderline left ventricle hypertrophy Normal left ventricle cavity size and normal left ventricle systolic function without wall motion abnormalities, ejection fraction 65% Grade 2 left ventricle diastolic dysfunction Mildly dilated left atrium Normal right ventricle size and systolic function Normal right-sided pressure, RVSP 34 mmHg Mild mitral regurgitation Trivial aortic insufficiency Adult Echocardiography Procedure Report Left Ventricle LVEDD (3.7 - 5.6 cm): 4.61 cm LVESD (2.2 - 4.0 cm): 3.26 cm LVIVS thickness (0.6 - 1.2 cm): 1.00 cm LVPW thickness (0.5 - 1.0 cm): 0.89 cm e': 0.15 m/s E - e': 4.19 LVOT Max Gradient: 4.47 mm[Hg] LVOT Area (cm2): 1.06 m/s Peak Velocity (LVOT): 1.06 m/s Mean Velocity (LVOT): 0.67 m/s LVOT Diameter 2.21 cm Left Ventricular Ejection Fraction: 65.07 % Left Atrium LA Volume Index (2D A2C): 39.41 ml/m2 Left Atrium Systolic Dimension: 4.16 cm Mitral Valve MV E to A Ratio: 1.24 MV Max Gradient: MV Mean Gradient: Mitral Valve A-Wave Peak Velocity: 0.51 m/s Mitral Valve E-Wave Peak Velocity: 0.63 m/s Cardiovascular Orifice Area: Right Ventricle RV Internal Diastolic Dimension: 3.46 cm Aorta AO Root Diam: 3.14 cm Ascending Ao Diam: Aortic Valve AoV Area (Peak Dangelo): 3.49 cm2, 3.49 cm2 AoV Area (VTI): 3.49 cm2, 3.49 cm2 Deceleration [place]: Pressure Half-Time: Peak Velocity(Antegrade Flow): 1.16 m/s Peak Gradient(Antegrade Flow): 5.39 mm[Hg] Mean Velocity(Antegrade Flow): 0.81 m/s Mean Gradient(Antegrade Flow): 3.01 mm[Hg] Velocity Time Integral: 26.98 cm Tricuspid Valve Peak Velocity (Regurgitant Flow): 2.41 m/s, 2.82 m/s Peak Velocity: Pulmonic Valve Mean Gradient: 1.80 mm[Hg], 1.64 mm[Hg] Mean Velocity: 0.63 m/s, 0.59 m/s Peak Velocity: 0.88 m/s, 0.87 m/s Peak Gradient: 3.20 mm[Hg], 2.93 mm[Hg], 3.00 mm[Hg] Right Atrium Right Atrium Systolic Pressure: 42.64 ml, 42.64 ml Dictated by: Elisabeth Shea MD on 05/22/2025 at 17:59 Approved by: Elisabeth Shea MD on 05/22/2025 at 18:06 Dictated By: Elisabeth Shea M.D. Signed By: 05/22/251807 DD/ 05 TD/TT: Child Welfare Consultant: Reason For Referral No Information Medications Medication SIG (Take, Route, Frequency, Duration) Notes Start Date End Date Status Atorvastatin Calcium 10 MG 1 tablet Orally Once a day; Duration: 30 days 05/20/2024ctiveCiprofloxacin HCl 500 MG1 tablet Orally every 12 hrs; Duration: 05/25/2025tiveKeppra 750 MG1 tablet Orally BID; Duration: 30 daysActive Isosorbide Mononitrate ER 30 MGtake 1 tablet by mouth every morning Orally Once a day; Duration: 30 daysActiveIpratropium-Albuterol 0.5-2.5 (3) MG/3ML3 mL as needed Inhalation every 6 hrs; Duration: 30 daysPRNActiveDiclofenac Sodium 75 MG 1 tablet as needed Orally Twice a day; Duration: 30 days5ActiveTopamax 100 MG1 tablet in the AM Orally and 2 tablets at bedtime; Duration: 30 days ActivetiZANidine HCl 4 MG2 tablets Orally at bedtime; Duration: 30 days 4ActiveLevothyroxine Sodium 125 MCG2 capsule in the morning on an empty stomach Orally Once a day; Duration: 90 daysActiveTamsulosin HCl 0.4 MG1 capsule Orally Once a day; Duration: 30 days03/17/2025tiveDoxycycline Monohydrate 100 MG1 tablet Orally bid; Duration: 10 5Active Hyoscyamine Sulfate 0.125 MG1-2 tabs SL SL every 4 hrs PRN abd pain04/22/2025 ActiveOndansetron 4 MG1 tablet on the tongue and allow to dissolve Orally qidPRN 5ActiveMetoprolol Tartrate 50 MG1 tablet with food Orally Twice a day; Duration: 30 day(s)3ActiveAspirin 81 MG1 tablet Orally Once a day; Duration: 30 daysActiveViagra 100 MG1 tablet as needed Orally Once a day; Duration: 30 daysPRNActiveAlbuterol Sulfate (2.5 MG/3ML) 0.083%3 mL Inhalation four times a day PRN; Duration: 30 daysPRNActiveVentolin HFA 108 (90 Base) MCG/ACT2 puff as needed Inhalation four times daily PRN; Duration: 30 daysPRN Active Social History Tobacco Use: Social History Observation [...] alcohol in the p ast year? No Ddpqgy6NhesaofzwgzzssCdylkugnWLCEO-P (Standard) Question Answer Notes Did you have [...] W/U Status Risk Notes Problem Essential hypertension (60549757 ) Essential (primary) hypertension (I10) ActiveconfirmedProblemSeizure (05227371)Unspecified convulsions (R56.9)Active confirmedProblemLow back pain (847505980)Low back pain (M54.5)Activeconfirmed ProblemHypothyroidism (04110224)Hypothyroidism, unspecified (E03.9)Active confirmedProblemObstructive sleep apnea syndrome (disorder) (26922963) Obstructive sleep apnea (adult) (pediatric) (G47.33)ActiveconfirmedProblem Coronavirus infection (718955095)Coronavirus infection, unspecified (B34.2) ActiveconfirmedProblemHypo-osmolality and or hyponatremia (342281836)Hypo- osmolality and hyponatremia (E87.1)ActiveconfirmedProblemMyoclonus (30678968) Myoclonus (G25.3)ActiveconfirmedProblemMigraine without aura, not refractory (disorder) (213647262)Migraine, unspecified, not intractable, without status migrainosus (G43.909)ActiveconfirmedProblemHereditary disorder of nervous system (439513758)Hereditary and idiopathic neuropathy, unspecified (G60.9)Active confirmedProblemAcute exacerbation of chronic obstructive airways disease (613929031)Chronic obstructive pulmonary disease with (acute) exacerbation (J44.1)ActiveconfirmedProblemAnkle instability (789860)Other instability, left ankle (M25.372)ActiveconfirmedProblemArthralgia of the ankle and/or foot (414866927)Pain in left ankle and joints of left foot (M25.572)Activeconfirmed ProblemDisplacement of lumbar intervertebral disc without myelopathy (47415897) Other intervertebral disc displacement, lumbar region (M51.26)Activeconfirmed ProblemCervical radiculopathy (33182243)Radiculopathy, cervical region (M54.12) ActiveconfirmedProblemNeuralgia (94699719)Neuralgia and neuritis, unspecified (M79.2)ActiveconfirmedProblemFibromyalgia (714464989)Fibromyalgia (M79.7)Active 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) (93232946247688781)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)Active confirmedProblemShortness of breath (001983869)Shortness of breath (R06.02) ActiveconfirmedProblemSnoring (98395197)Snoring (R06.83)ActiveconfirmedProblem Dysphagia (75524081)Dysphagia, unspecified (R13.10)ActiveconfirmedProblem Weakness (31970879)Weakness (R53.1)ActiveconfirmedProblemSprain of left ankle (09746829639365142)Sprain of other ligament of left ankle, initial encounter (S93.492A)ActiveconfirmedProblemChest pain (41963297)Chest pain (R07.9)Active confirmedProblemFatigue (29195412)Fatigue (R53.83)ActiveconfirmedProblemMigraine variant with headache (disorder) (040120729)Migraine headache (G43.909)Active confirmedProblemHyperlipidemia (20672400)Hyperlipidemia (E78.5)Activeconfirmed ProblemHypertension (11769949)Hypertension (I10)ActiveconfirmedProblem Gastroesophageal reflux disease (872275000)GERD (gastroesophageal reflux disease) (K21.9)ActiveconfirmedProblemCervical radiculopathy (36555492)Cervical radiculopathy (M54.12)ActiveconfirmedProblemHypothyroidism (78234470) Hypothyroidism (E03.9)ActiveconfirmedProblemPalpitations (89848599)Palpitation (R00.2)ActiveconfirmedProblemRestless legs syndrome (65612614)Restless leg syndrome (G25.81)ActiveconfirmedProblemPneumonia (265547118)Pneumonia (J18.9) ActiveconfirmedProblemEdema (97621274)Edema (R60.9)ActiveconfirmedProblem Hypothyroid (49035606)Hypothyroid (E03.9)ActiveconfirmedProblemPeripheral venous insufficiency (32773474)Venous insufficiency (I87.2)ActiveconfirmedProblem Peripheral neuropathy (698921336)Peripheral neuropathy (G62.9)Activeconfirmed ProblemGout (53941683)Gout (M10.9)ActiveconfirmedProblemDyspnea (891700384) Dyspnea (R06.00)ActiveconfirmedProblemObstructive sleep apnea (97284923) Obstructive sleep apnea (G47.33)ActiveconfirmedProblemSyncope (159321348)Syncope (R55)ActiveconfirmedProblemHyponatremia (54753610)Hyponatremia (E87.1)Active confirmedProblemEsophageal reflux (292135507)Esophageal reflux (K21.9)Active confirmedProblemOsteoarthritis of knee (334592494)Knee osteoarthritis (M17.9) ActiveconfirmedProblemMigraine (34092248)Migraine (G43.909)Activeconfirmed ProblemBenign prostatic hyperplasia (747204029)BPH (benign prostatic hyperplasia) (N40.0)ActiveconfirmedProblemEpigastric pain (65251692)Epigastric pain (R10.13)ActiveconfirmedProblemGlaucoma (37045202)Glaucoma (H40.9)Active confirmedProblemIrritable bowel syndrome (16443420)IBS (irritable bowel syndrome) (K58.9)ActiveconfirmedProblemAllergic rhinitis (97679641)Allergic rhinitis (J30.9)ActiveconfirmedProblemAcute exacerbation of chronic obstructive airways disease (854992129)COPD exacerbation (J44.1)ActiveconfirmedProblem Prolapsed lumbar intervertebral disc (688146602)Lumbar disc herniation (M51.26) ActiveconfirmedProblemRight lower quadrant pain (144742903)Right lower quadrant abdominal pain (R10.31)ActiveconfirmedProblemDysphagia (58822929)Dysphagia (R13.10)ActiveconfirmedProblemAcquired hypothyroidism (891514791)Acquired hypothyroidism (E03.9)ActiveconfirmedProblemLocalized, primary osteoarthritis of the pelvic region and thigh (543953258)Primary osteoarthritis of left hip (M16.12)ActiveconfirmedProblemDiverticulitis (17915260)Diverticulitis (K57.92) ActiveconfirmedProblemLumbar radicular pain (3395936793)Lumbar radicular pain (M54.16)ActiveconfirmedProblemAlcoholism (5177593)Alcoholism (F10.20)Active confirmedProblemNear syncope (814452398)Near syncope (R55)ActiveconfirmedProblem Seizure disorder (668345764)Seizure disorder (G40.909)ActiveconfirmedProblem Fibromyalgia (607501673)Fibromyalgia (M79.7)ActiveconfirmedProblemDisplacement of lumbar intervertebral disc without myelopathy (20020421)Herniated lumbar disc without myelopathy (M51.26)ActiveconfirmedProblemIntrinsic asthma (803963173) Intrinsic asthma (J45.909)ActiveconfirmedProblemOverweight (731197998)Over weight (E66.3)ActiveconfirmedProblemMovement disorder (88871891)Movement disorder (G25.9)ActiveconfirmedProblemDiverticulitis of colon (289212246)Acute diverticulitis (K57.92)ActiveconfirmedProblemAcute gout (008753357)Acute gout (M10.9)ActiveconfirmedProblemIron deficiency anemia (29683104)Fe deficiency anemia (D50.9)ActiveconfirmedProblemGroin strain (861903056)Groin strain (S76.219A)ActiveconfirmedProblemAlcohol dependence (17669272)Alcohol dependence (F10.20)ActiveconfirmedProblemPeripheral neuropathy (633394901)Neuropathy, peripheral (G62.9)ActiveconfirmedProblemClosed fracture of neck of femur (482216477)Fracture of right hip (S72.001A)ActiveconfirmedProblemDisplacement of lumbar intervertebral disc without myelopathy (20020421)Disc displacement, lumbar (M51.26)ActiveconfirmedProblemGroin strain (408162199)Groin strain, right, initial encounter (S76.211A)ActiveconfirmedProblemGastroesophageal reflux disease (disorder) (504353300)Chronic GERD (K21.9)ActiveconfirmedProblem Leukocytosis (497820837)Elevated WBCs (D72.829)ActiveconfirmedProblemEssential hypertension (55944253)BP (high blood pressure) (I10)ActiveconfirmedProblem Benign prostatic hypertrophy without outflow obstruction (998981370)Benign prostatic hyperplasia without lower urinary tract symptoms (N40.0)Active confirmedProblemMalnutrition of moderate degree (Correa: 60% to less than 75% of standard weight) (01139846)Moderate protein malnutrition (E44.0)Activeconfirmed ProblemSecond degree atrioventricular block (333212141)2nd degree AV block (I44.1)ActiveconfirmedProblemDisease caused by Severe acute respiratory syndrome coronavirus 2 (disorder) (275782289)COVID-19 virus infection (U07.1)Active confirmedProblemHeadache (86738433)Headache, unspecified (R51.9)Activeconfirmed ProblemLow back pain (742539620)Low back pain, unspecified (M54.50)Active confirmed Vital Signs Temperature 98.7 degrees Fahrenheit 11/17/2024 Blood pressure uqpzcnriw09 mm Hg05/25/20251714Nmhuyi68 in05/25/2025lood pressure tepxsduj889 mm Hg05/25/20251043Mbxiof603.4 lbs107/25/2024BMI27.49 kg/m205/25/2025 Encounters Encounter Location Date Provider Diagnosis [address] [address] 11/06/2024 Michael Hoy Acute bronchitis, unspecified organism J20.[address] [address] 11/24/2024 Michael Hoy Groin strain, right, initial encounter S76.211A [address] [address] 12/23/2024 Michael Hoy Edema R60.[address] [address] 02/10/2025 Michael Hoy Gastroenteritis K52. 9 ; Essential (primary) hypertension I10 ; Obstructive sleep apnea (adult) (pediatric) G47.33 ; Obstructive sleep apnea G47.33 and COPD exacerbation J44.[address] [address] 04/22/2025 Michael Hoy Right lower quadrant abdominal pain R10.[address] [address] 05/25/2025 Michael Hoy Essential (primary) hypertension I10 ; Primary osteoarthritis of left hip M16.12 and Edema R60.9 [facility] [address] [facility] [place] [address] 12/30/2024 Michael Hoy Gastroenteritis K52. 9 [facility] [address] [place] [address] 11/17/2024 Michael Hoy Acute bronchitis, unspecified organism J20.9 [facility] [address] [place] [facility] [place] [address] 11/14/2024 Michael Hoy [facility] [place] [address] 03/17/2025Doug HoyEssential (primary) hypertension [facility] [place] [address]/07/2025Doug Hoy Unspecified convulsions R56.9 ; BP (high blood pressure) I10 ; Hypothyroid E03.9 ; Screening for prostate cancer Z12.5 and Screening for colon cancer Z12.11 [facility] [place] [address] 04/23/2025[facility] [place] [facility] [place] [address]/29/2025Doug HoyUnspecified convulsions [place]56.[place] [address] [place] [address]/10/2025Doug Hoy Assessments Encounter Date Diagnosis (ICD Code) Assessment Notes Treatment Notes Treatment Clinical Notes Section Notes 11/06/2024 Acute bronchitis, unspecified or ganism (ICD-10 - J20.9) Rest and drink more liquids, especially water. You may use a humidifier or vaporizer to help keep the drainage moist. Nkrk-lvq-feaiwnl Nasal Saline may help the stuffy and runny nose. Use Ibuprofen and or Tylenol as needed for fever, chills, body aches or pain. Children 5 years old should not be given aixl-mbv-xfizsja cough and cold medications such as guaifenesin and dextromethorphan. If you're over age 5, you may try qloi-hxx-oyundpp cold medications such as guaifenesin and dextromethorphan, [...] go to the emergency room or call [phone] bronchitis, unspecified organism (ICD-10 - J20.9)Rest and drink more liquids, especially water. You may use a humidifier or vaporizer to help keep the drainage moist. Nwrw-odg-kiwfiie Nasal Saline may help the stuffy and runny nose. Use Ibuprofen and or Tylenol as needed for fever, chills, body aches or pain. Children 5 years old should not be given obcc-pow-slwrjgp cough and cold medications such as guaifenesin and dextromethorphan. If you're o boni age 5, you may try zgrh-pma-rsqpcyx cold medications such as guaifenesin and dextromethorphan, [...] go to the emergency room or call [address]66/06/2025Geo villalpando right, initial encounter (ICD-10 - S76.211A)12/23/2024Edema (ICD-10 - R60.9)12/30/2024Gastroenteritis (ICD-10 - K52.9)Get plenty of rest. Stay hydrated by sucking on ice chips or taking small sips of water. You can also try drinking clear soda, clear broths or noncaffeinated sports drinks. Stop eating solid foods for a few hours to let your stomach settle. East back into eating by eating bland, ytdd-pp-pfwmao foods like crackers, toast, gelatin, bananas, rice and chicken. Try to avoid foods/substances including dairy products, caffeine, alcohol, nicotine and fatty or highly seasoned foods. Medications such as i buprofen or tylenol can make your stomach more upset, so use sparingly if at all. Also avoid sdrk-guw-qxyhece anti-diarrheal medications because it can make it harder for your body to eliminate the virus.02/10/2025Gastroenteritis (ICD-10 - K52.9)02/10/2025Essential (primary) hypertension (ICD-10 - I10)Cleared for OR 04/22/2025Right lower quadrant abdominal pain (ICD-10 - R10.31)05/25/2025 Essential (primary) hypertension (ICD-10 - I10)05/25/2025Primary osteoarthritis of left hip (ICD-10 - M16.12) Cleared for OR - No hx CAD, no strokes - Posible boil on Left lower leg - needs u/s make sure not phelbitis 03/17/2025Essential (primary) hypertension (ICD-10 - I10)04/21/2025Unspecified convulsions (ICD-10 - R56.9)05/13/2025Unspecified convulsions (ICD-10 - R56.9) 04/21/2025P (high blood pressure) (ICD-10 - I10)05/25/2025Edema (ICD-10 - R60.9)possibel phelbitis vs per cyst - calling uzyzwmnmqql13/29/2025 Obstructive sleep apnea (adult) (pediatric) (ICD-10 - G47.33)02/10/2025 Obstructive sleep apnea (ICD-10 - G47.33)04/21/2025Hypothyroid (ICD-10 - E03.9) 04/21/2025Screening for prostate cancer (ICD-10 - Z12.5)02/10/2025OPD exacerbation [...] CON 10/25/2022 MRI LSPINE WO CON 12/06/2022 US EVAN DOP LEG LT 05/25/2025 XR HIPS J LUIS 3_4V WO PELVIS 01/11/2024 XR KNEE LT 3V 01/11/2024 XR KNEE RT 3V 01/11/2024 XR LSPINE 2_3 VIEWS 01/11/2024 THYROID PANEL (T4/TSH/FREE T3) ECHOCARDIO M/2D COMPLETE 01/01/2023 PSA, SCREENING 04/21/2025 Insurance Providers Payer Name Payer Address Payer Phone Subscriber Number Group Number Insured Name Patient Relationship to Insured Coverage Start Date Coverage End Date [place] [address] [place] [address] [id number] Dontrell Poole - patient is the [id number] 2018 Medications Administered Medication Instructions Date of Administration Dosage Notes Dexamethasone, 4mg/mL mgKenalog-40020 mg120 mgKetorolac Wfwqfrqwxjwy58/10/2023 60 mgtoradol 60 mgKetorolac Umztsvmllpkm53/19/629563 dv12Teglqkods Tromethamine 0 agScpjbxo84/ mg60 mgOrphenadrine Ggumowp52 mg60 Medical (General) History Medical History History [...] the right lower extremitySurgical History Surgery Date(Month/Year) Loop recorder 10/2023 Right hip replacement 2024 Steel Plates in Back 2011 Mesh in Heart 2000 cataract 2014,2018 excisional biopsy sebaceous cyst right c hest wall 12/26/2017 cribiform implant 2009 Hospitalization History Reason Date(Month/Year) Fall 11/2022 Chest Pain 12/2021 Bronchitis 03/2022 Chest Pain 05/2023 Syncope 04/2023
--- OUTSIDE RECORDS SUMMARY | 2025-06-01 07:52 | XMS_ITS | CCD ---
Author Organization [facility] CliniSyaz Care Team Providers Care Hosting Engineer Name Role Phone LESVIA ., DR GLASGOW [...] Other Provider Nishant Ceja DO Other Provider [phone] Janki Lam MD Other Provider Rehan Thomas DO Other Provider [phone] Luis Alberto Hearn MD Attending Provider Maria Del Rosario Hernandez MD Other Provider Jose Antonio Camara MD Other Provider Gloria Arrington APRN Other Provider [phone] Levi Waterman DO Other Provider Paco Jimenez MD Other Provider [phone] Paco Jimenez MD Admit Provider Tony CARD, Paco Ace Attending Provider [phone] Dave RN, Padmini Other Provider Unavailable Yony [...] Other Provider Ammon Cochran DO Other Provider [phone] Reyes Tracey MD Other Provider Kyle Huerta MD Other Provider Kailey CHARGE MASTER COORDINATOR-C, Sis Granados Other Provider Justyn QUILES, Yamilet Hopkins Other Provider Unavailable J Luis Hebert MD Other Provider Jayy CARD, Fermín Other Provider Tino Calixto MD Other Provider Nicole CARD, Marline Other Provider Unavailable Marycruz CARD, Yan Other Provider Zaire DO, Trinity Other Provider Sandra DO, Andres R Other Provider [phone] Reshma Marin APRN Other Provider Richardson DOAz Other Provider Roselyn CARD, Luciana Hopkins Other Provider Diana Forde APRN Other Provider Lorena Hernandez APRN Other Provider David CARD, Amaury Other Provider Unavailable Inna CARD, Ruben Granados Other Provider [phone] Hussein DO, Michael Ramos Other Provider [phone] Lesley Rea DO Other Provider Marily CARD, Gavin Campbell Other Provider Hernandez Sampson MD Other Provider [phone] Shannon QUILES, Marti Other Provider Unavailable Matthew CARD, Ivonne Other Provider Nadege CARD, Ander Other Provider Jose Antonio Dacosta MD Other Provider Phil Shaikh MD Other Provider Juan M Elise MD Other Provider Praveena Mast APRN Other Provider Yeimi Smith APRN Other Provider Mariam Moore RN Other Provider Unavailable Jose Antonio Camara MD Attending Provider Nishant Ceja DO Attending Provider [phone] Nishant Ceja DO Attending Provider Luis Alberto Hearn MD Other Provider Jose Antonio Camara MD Attending Provider Paco Jimenez MD Attending Provider [phone] Levi Waterman DO Other Provider UnavailJuan Pablo Diamond MD Other Provider Unavailable Marily CARD, Tino Other Provider Unavailable Marycruz CARD, Yan Other Provider Unavailable Michael Savage DO Other Provider Unavailable Nadege CARD, Ander Other Provider Unavailable Reina CARD, Ammon Attending Provider Ammon Huang MD Other Provider Brenna CARBAJAL, Nishant Cabrales Admit Provider Pee Lakhani MD Primary Care Provider [phone] Paco Jimenez MD Other Provider Nishant Ceja DO Attending Provider Brenna CARBAJAL, Nishant Cabrales Other Provider Unavailable Primary Care Provider UnavailPee Magallanes Primary [...] Unavailable Pee Lakhani MD Primary Care Provider [phone] Nishant Ceja DO Attending Provider ELISABETH VIDAL Attending Unavailable ELISABETH VIDAL Attending Unavailable BARBARA WILLS Referring Unavailable MARITZA, JYOTI Referring Unavailable BARBARA WILLS Referring Unavailable BARBARA WILLS Referring Unavailable MARITZA, JYOTI Referring Unavailable MARITZA, JYOTI Referring Unavailable MARITZA, JYOTI Referring Unavailable BARBARA WILLS Referring Unavailable MARITZA, JYOTI Referring Unavailable Allergies Allergy ClassificationReported Allergen(s)Allergy TypeDate of OnsetReaction(s) Facility (11 sources)Penicillins; Translations: [PENICILLINS]Drug allergy (disorder) 30-66-0134Guwgfllm of Throat, RashThe [facility] (11 sources)strawberry allergenic extract; Translations: [STRAWBERRY]Drug Aadgjxx43-38-3726Rhlznqh Reaction, HivesThe [facility] (11 sources)Procaine; Translations: [procaine]Drug Slchgtu84-09-3215Vsiyfsx ReactionTrumbull Regional Medical Center (6 sources)PenicillinsDrug Gtwpand64-07-2066Qjlnrngeok, Swelling, UnknownNOMS Healthcare (1 source)PenicillinsDrug allergy (disorder)61-66-9256KqmvkyjgmTrumbull Regional Medical Center Repository (1 source)strawberry allergenic extractDrug Ghkagke10-51-4813RdbpjuolnTrumbull Regional Medical Center Repository Medications Current Medications MedicationDrug Class(es)DatesSig (Normalized)Sig (Original)acetaminophen 500 mg oral tablet (19 sources)Start: 12-03-2024 End: 36-56-7124kqwq 2 tablets by mouth every eight hours [...] oral tablet (18 sources)Vitamin CStart: 12-03-2024 End: 59-26-0442hwsl 1 tablet by mouth twice daily at mealtimeAscorbic Acid (Vitamin C) (Vitamin C) 500 mg Tablet Active 500 MG PO Twice daily with meals 14 7 0 December 12, 2024 1:20pm Complies with drug therapyaspirin 81 mg chewable tablet (20 sources)Platelet Aggregation Inhibitor, Nonsteroidal Anti-inflammatory Drug Start: 79-12-2035xkzc 1 tablet by mouth twice dailyAspirin 81 mg tablet,chewable Active 81 MG PO Twice daily 74 37 0 February 11, 2025 12:00am Complies with drug therapyStart: 12-01-2024 End: 65-40-1322cpau 1 tablet by mouth twice dailyAspirin 81 mg tablet Discontinued 81 MG PO Twice daily December 01, 2024 12:00am December 12, 2024 1:20pm aspirin 81 MG chewable tablet 81 mg 1 (one) time each day at the same time Activeatorvastatin 10 mg oral tablet (15 sources)HMG-CoA Reductase InhibitorStart: 31-83-1575kumc 1 tablet by mouth at bedtimeAtorvastatin 10 mg tablet Active 10 MG PO Bedtime December 01, 2024 12:00am Complies with drug therapycalcium carbonate 1500 mg / cholecalciferol 500 unt oral capsule (18 sources)Vitamin DStart: 12-03-2024 End: 57-29-3464qxiy 1 capsule by mouth twice dailyCalcium Carbonate-Vitamin D3 (Calcium 600 With Vitamin D3) 600 mg-12.5 mcg (500 unit) capsule Active 1 CAP PO Twice daily 60 0 December 12, 2024 1:20pm Complies with drug therapy cyclobenzaprine hydrochloride 10 mg oral tablet (4 sources)Muscle RelaxantStart: 78-22-1652lpyr 5-10 mg by mouth every eight hoursCyclobenzaprine 10 mg tablet Active 5 - 10 MG PO Q8H 30 14 0 February 11, 2025 12:00am Complies with drug therapydiphenhydrAMINE hydrochloride 25 mg oral capsule (9 sources)Histamine-1 Receptor AntagonistStart: 18-02-0481bpzx 1 capsule by mouth once daily at bedtimeDiphenhydramine Hcl (Allergy (Diphenhydramine)) 25 mg capsule Active 25 MG PO Daily at bedtime December 01, 2024 12:00am Complies with drug therapydocusate sodium 100 mg oral capsule (4 sources)Start: 10-94-8060ccxy 1 capsule by mouth twice dailyDocusate Sodium (Colace) 100 mg capsule Active 100 MG PO Twice daily 28 14 0 February 11, 2025 12:00am Complies with drug therapydoxycycline hyclate 100 mg oral tablet (4 sources)Tetracycline-class DrugStart: 31-44-3774zvxb 1 tablet by mouth twice dailyDoxycycline Hyclate 100 mg tablet Active 100 MG PO Twice daily 14 7 0 February 11, 2025 12:00am Complies with drug fhaflhe14 hr isosorbide mononitrate 30 mg extended release oral tablet (15 sources)Nitrate VasodilatorStart: 34-34-8900ijdc 1 tablet by mouth in the morning, then take 1 tablet by mouth every twenty-four hoursIsosorbide Mononitrate 30 mg tablet extended release 24 hr Active 30 MG PO .am December 01, 2024 12:00am Complies with drug therapyivermectin 3 mg oral tablet (6 sources)Antiparasitic, PediculicideStart: 58-08-2580idmwyiknrd (Stromectol) 3 MG tablet Indications: Rash and other nonspecific skin eruption Take 6 tablets today and repeat in 1 week 6 tablet 1 03/06/2025 Activelevothyroxine sodium 0.125 mg oral tablet (15 sources)l-ThyroxineStart: 67-18-0505iltl 2 tablets by mouth in the morning Levothyroxine 125 mcg tablet Active 250 MCG PO .am December 01, 2024 12:00am Complies with drug therapymelatonin 12 mg oral tablet (9 sources)Start: 98-97-5310xsaf 1 tablet by mouth once daily at bedtime Melatonin 12 mg tablet Active 12 MG PO Daily at bedtime December 01, 2024 12:00am Complies with drug therapymetoprolol tartrate 50 mg oral tablet (15 sources)beta-Adrenergic BlockerStart: 18-81-5198xkuk 1 tablet by mouth twice dailyMetoprolol Tartrate 50 mg tablet Active 50 MG PO Twice daily December 01, 2024 12:00am Complies with drug therapyoxyCODONE hydrochloride 5 mg oral tablet (19 sources)Opioid AgonistStart: 76-27-8570xabs 1 tablet by mouth every four hours as needed for painOxycodone 5 mg tablet Active 5 MG PO Q4H as needed for Pain 42 7 0 February 11, 2025 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 #42 DO NOT FILL UNTIL 02/23/25 Complies with drug therapyStart: 12-52-9570ycwe 2 tablets by mouth every four hours as needed for painOxycodone 5 mg Tablet Active 10 MG PO Every 4 hours as needed for Pain Scale 6 - 10 42 7 December 12, 2024 Complies with drug therapyStart: 12-03-2024 End: 94-24-5355uqvt 1 tablet by mouth every six hours as needed for pain Oxycodone 5 mg Tablet Discontinued 5 MG PO Every 6 hours as needed for Pain Scale 4 - 7 0 0 December 03, 2024 December 12, 2024 1:21pmpredniSONE 5 mg oral tablet (8 sources)Start: 69-47-0759Umlcgfofsf 5 mg tablet Active 5 MG PO daily 30 10 0 March 04, 2025 12:00am Take 5 pills by mouthx2 days, take 4 pills by mouth x2 days, take 3 pills by mouth x2 days, take 2 pills by mouth x2 days, take 1 pill by mouth x2 days. Complies with drug therapytamsulosin hydrochloride 0.4 mg oral capsule (15 sources)alpha-Adrenergic BlockerStart: 49-96-9323hokq 1 capsule by mouth once dailyTamsulosin 0.4 mg capsule Active 0.4 MG PO Daily December 01, 2024 12:00am Complies with drug therapytiZANidine 4 mg oral tablet (15 sources)Central alpha-2 Adrenergic AgonistStart: 98-87-3354gfjs 2 tablets by mouth once daily at bedtimetiZANidine (Zanaflex) 4 MG tablet TAKE 2 TABLETS BY MOUTH EVERY DAY AT BEDTIME 02/13/2025 ActiveStart: 89-52-9124ngos 1 tablet by mouth at bedtimeTizanidine 4 mg tablet Active 4 MG PO Bedtime December 01, 2024 12:00am Complies with drug therapytopiramate 100 mg oral tablet (20 sources)Start: 13-37-4726rmdr 2 tablets by mouth at bedtimeTopiramate 100 mg tablet Active 200 MG PO Bedtime December 01, 2024 12:00am Complies with drug therapyStart: 89-82-2665xesn 1 tablet by mouth in the morningTopiramate (Topamax) 100 mg tablet Active 100 MG PO .am December 01, 2024 12:00am Complies with drug therapytraMADol hydrochloride 50 mg oral tablet (8 sources)Opioid AgonistStart: 02-11-2025 End: 39-00-4896smns 1 tablet by mouth every four hours as needed for pain Tramadol 50 mg tablet Active 50 MG PO Q4H as needed for Pain 42 7 0 February 11, 2025 12:51pm 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 #42 okay to fill pre op 02/11/2025 Complies with drug therapytriamcinolone acetonide 0.001 mg/mg topical ointment (10 sources)CorticosteroidStart: 60-43-1940yszmcqbytpvqp (Kenalog) 0.1 % ointment Indications: Stasis dermatitis of both legs Apply (1g) to affected areas (legs/arms), up to twice a day when flared, do not use one the face, groin, or underarms, 30 day supply 453.6 g 5 04/24/2025 ActiveStart: 03-06-2025 End: 19-23-7840qigizyfzcgzes (Kenalog) 0.1 % cream Indications: Rash and other nonspecific skin eruption Apply (1g) to affected areas (legs/arms), up to twice a day when flared, do not use one the face, groin, or underarms, 30 day supply 454 g 3 03/06/2025 04/24/2025 DiscontinuedStart: 36-50-0504Tgebhrgctkvqu Acetonide 0.5 % cream Active 1 APPLIC TOPICAL Twice daily 15 30 2 February 25, 2025 12:00am RLE dermatitis Complies with drug therapy Completed/Discontinued Medications MedicationDrug Class(es)DatesSig (Normalized)Sig (Original)120 actuat budesonide 0.16 mg/actuat / formoterol fumarate 0.0045 mg/actuat metered dose inhaler (9 sources)Corticosteroid, beta2-Adrenergic AgonistStart: 12-12-2024 End: 64-64-8945xluo 1 puff(s) by inhalation twice dailyBudesonide-Formoterol (Symbicort) 160-4.5 mcg/actuation Hfa Aerosol Inhaler Discontinued 2 PUFF INHA LATION Twice daily 10.2 0 December 12, 2024 12:00am February 06, 2025 12:16pm diclofenac sodium 75 mg delayed release oral tablet (20 sources)Nonsteroidal Anti-inflammatory DrugStart: 12-01-2024 End: 63-11-5285fqlc 1 tablet by mouth once dailyDiclofenac Sodium 75 mg tablet,delayed release (DR/EC) Discontinued 75 MG PO Daily 30 0 December 03, 2024 11:46am December 12, 2024 1:20pmtake 1 tablet by mouth twice daily as needed diclofenac (Voltaren) 75 MG EC tablet Take 75 mg by mouth 2 (two) times a day as needed Activedocusate sodium 50 mg / sennosides, shelter 8.6 mg oral tablet (9 sources)Start: 12-03-2024 End: 91-39-4296wxrr 2 tablets by mouth twice dailySennosides-Docusate Sodium 8.6-50 mg Tablet Discontinued 2 TAB PO Twice daily 0 December 03, 2024 12:00am December 12, 2024 1:21pmpolyethylene glycol 3350 12643 mg powder for oral solution (9 sources)Osmotic LaxativeStart: 12-03-2024 End: 23-72-6772Yaxytkhdkslg Glycol 3350 (Healthylax) 17 gram Powder In Packet Discontinued 17 GM PO Daily 0 December 03, 2024 12:00am February 06, 2025 12:17pm rivaroxaban 10 mg oral tablet (9 sources)Factor Xa InhibitorStart: 12-03-2024 End: 58-42-1137gxwl 1 tablet by mouth once dailyRivaroxaban (Xarelto) 10 mg Tablet Discontinued 10 MG PO Daily 0 December 03, 2024 12:00am November 1:21pm Problems Active Problems Problem ClassificationProblemDateDocumented DateEpisodic/ChronicAcute and unspecified renal failure (1 source)Acute kidney failure, unspecified; Translations: [ACUTE KIDNEY FAILURE UNSPECIFIED]Onset: 79-54-1527XmdxtupuYxcafxucvyhkwz/social admission (18 sources)Other reduced mobility; Translations: [Impaired mobility and activities of daily living]Onset: 168893-39-4785AzwjvahsOjwvnoc-jylrhux disorders (20 sources)Alcohol dependence, uncomplicated; Translations: [Alcohol dependence]Onset: 677655-36-4032LoldlxeKezyxgj dysrhythmias (3 sources)Bradycardia, unspecified; Translations: [Palpitations]Onset: 68-49-8399ObwoifqcDicbreh obstructive pulmonary disease and bronchiectasis (19 sources)Emphysema, unspecified; Translations: [Chronic obstructive lung disease]Onset: 738329-83-0840MrtexkfHuakbwfsuf heart failure; nonhypertensive (1 source)Unspecified diastolic (congestive) heart failure; Translations: [UNSPECIFIED DIASTOLIC HEART FAILURE]Onset: 66-73-2464MmzvtykUagunenp atherosclerosis and other heart disease (18 sources)Coronary arteriosclerosis; Translations: [Atherosclerotic heart disease of [place] coronary artery without angina pectoris]Onset: 12-03-2024 71-18-2083ZrbwoboNewayoon of white blood cells (1 source)Elevated white blood cell count, unspecified; Translations: [ELEVATED WHITE BLOOD CELL COUNT UNS]Onset: 27-84-3281NsaolmdGfrmljkvr of lipid metabolism (20 sources)Hyperlipidemia; Translations: [Hyperlipidemia, unspecified]Onset: 364269-84-4091NsjcaktD Codes: Fall (1 source)Unspecified fall, initial encounter; Translations: [UNSPECIFIED FALL INITIAL ENCOUNTER]Onset: 22-67-8113KabffpqaZklbxxzy; convulsions (20 sources)Epilepsy, unspecified, not intractable, without status epilepticus; Translations: [Seizure disorder]Onset: 253163-78-5035RrnuifiHbwbtfwao hypertension (20 sources)Essential (primary) hypertension; Translations: [Hypertensive disorder]Onset: 912985-85-0099JauvkxaVajlq and electrolyte disorders (11 sources)Hypo-osmolality and hyponatremia; Translations: [Dehydration]Onset: 778164-00-6499UdvexhdsRpaxklyw of neck of femur (hip) (20 sources)Fracture of neck of femur; Translations: [Fracture of unspecified part of neck of unspecified femur, initial encounter for closed fracture]Onset: 892581-79-9552IhkuhopwCtkuxpmu; including migraine (1 source)Headache; including migraine; Translations: [HEADACHE UNSPECIFIED] Onset: 61-03-1917Bcklrdaslec of prostate (20 sources)Benign prostatic hyperplasia; Translations: [Benign prostatic hyperplasia without lower urinary tract symptoms]Onset: ChronicHypertension with complications and secondary hypertension (1 source)Hypertensive heart disease with heart failure; Translations: [HTN HEART DISEASE W/HEART FAIL]Onset: 50-92-2251FnhajozJsgdnoaxyjaf injury (1 source)Other specified intracranial injury with loss of consciousness of 30 minutes or less, initial encounter; Translations: [OTH SPECIFIED ICI LOC 30 MIN/< INIT]Onset: 89-32-5002YdipcekkDgsqvrm and fatigue (4 sources)Weakness; Translations: [WEAKNESS]Onset: 59-78-7979MazshtofBwowftqpqq disorders (1 source)Hormone replacement therapy; Translations: [HORMONE REPLACEMENT THERAPY]Onset: 78-05-7401HiexlhxzYmaffyjcelhqdy (1 source)Unilateral primary osteoarthritis, left hip; Translations: [UNI PRIM OSTEOARTHRITIS LT HIP]Onset: 46-15-4577GqqrweuYmjjh aftercare (1 source)Other supervisor train operations (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) drug therapy; Translations: [OTH QUANTITATIVE EQUITY HEAD CURRENT DRUG THERAPY]Onset: 12-78-9138ZbmzxvrlFupwu aftercare (1 source)Removal of sutures done; Translations: [Encounter for removal of sutures]36-07-3929UaeolmeeNtott bone disease and musculoskeletal deformities (20 sources)Avascular necrosis of bone; Translations: [Idiopathic aseptic necrosis of unspecified bone]78-30-9330UesgeraQtmst bone disease and musculoskeletal deformities (7 sources)Idiopathic aseptic necrosis of unspecified bone; Translations: [Aseptic necrosis of bone, site unspecified]Onset: 154768-08-6686Kojivad Other bone disease and musculoskeletal deformities (20 sources)Avascular necrosis of bone of hip; Translations: [Idiopathic aseptic necrosis of right femur]28-32-3596DrfesuxTesac bone disease and musculoskeletal deformities (2 sources)Idiopathic aseptic necrosis of right femur; Translations: [Aseptic necrosis of head and neck of femur]96-43-2327IsdodtbGwxxg bone disease and musculoskeletal deformities (2 sources)Idiopathic aseptic necrosis of left femur; Translations: [Aseptic necrosis of head and neck of femur]19-64-0775BzpgumrZgqbu connective tissue disease (20 sources)History of total hip arthroplasty; Translations: [Presence of unspecified artificial hip joint]77-02-6280WupunzzNfsrq connective tissue disease (7 sources)Presence of unspecified artificial hip joint; Translations: [Hip joint replacement]Onset: 137399-24-4699GwfijxsOycyx connective tissue disease (2 sources)Presence of right artificial hip joint; Translations: [Hip joint replacement]14-28-7561DlilxksObbhb connective tissue disease (1 source)Arthrodesis status; Translations: [ARTHRODESIS STATUS]Onset: 25-14-4997UwhhveweCkyat diseases of veins and lymphatics (6 sources)Stasis dermatitis; Translations: [Venous insufficiency (chronic) (peripheral)]52-07-6154MgdxdefoDrctv diseases of veins and lymphatics (1 source)Venous insufficiency (chronic) (peripheral); Translations: [Venous insufficiency (chronic) (peripheral)]Onset: 17-30-9533NcdkggeiVjlxa diseases of veins and lymphatics (1 source)Disorder of vein of lower extremity; Translations: [Venous insufficiency (chronic) (peripheral)]76-97-4320UsjpwbarIgkgb lower respiratory disease (3 sources)Shortness of breath; Translations: [SHORTNESS OF BREATH]Onset: 63-70-3725ObdiqukqYctnn lower respiratory disease (2 sources)Other forms of dyspnea; Translations: [Other forms of dyspnea]Onset: 43-98-8099KykqhprdIjibe nervous system disorders (1 source)Other chronic pain; Translations: [OTHER CHRONIC PAIN]Onset: 10-81-5539CiqjulaFpvnp non-traumatic joint disorders (20 sources)Pain in right shoulder; Translations: [Right shoulder pain]Onset: 013074-51-3677BymfwvhuEbsit skin disorders (7 sources)Eruption; Translations: [Rash and other nonspecific skin eruption] 94-32-5495HlfpnvypOsopkiuqr (except that caused by tuberculosis or sexually transmitted disease) (1 source)Pneumonia (except that caused by tuberculosis or sexually transmitted disease); Translations: [PNEUMONIA D/T CORONAVIRUS DIS 2019]Onset: 04-05-2022 Screening and history of mental health and substance abuse codes (1 source)Personal history of nicotine dependence; Translations: [PERSONAL HISTORY OF NICOTINE DEPEND]Onset: 04-11-9373DkdisbgjBnju and subcutaneous tissue infections (6 sources)Cellulitis of right lower limb; Translations: [Cellulitis of right lower limb]Onset: 661650-07-2007DkuhtrsgUfwuhokksmn; intervertebral disc disorders; other back problems (4 sources)Other intervertebral disc displacement, lumbar region; Translations: [OTH IV DISC DISPLACEMENT LUMBAR RGN]Onset: 76-93-6238NzixaaiIugvdwjsfjv; intervertebral disc disorders; other back problems (6 sources)Radiculopathy, lumbosacral region; Translations: [Radiculopathy, cervical region]Onset: 57-36-9249XschyutzIjfilzk and strains (1 source)Sprain of unspecified ligament of left ankle, initial encounter; Translations: [SPRAIN UNS LIGAMENTLT ANKLE INIT]Onset: 06-53-6995Zxquzfem Substance-related disorders (1 source)Nicotine dependence, cigarettes, uncomplicated; Translations: [NICOTINE DEPEND CIGARETTES UNCOMP]Onset: 32-22-5258WosfjuaUpzeruy disorders (20 sources)Hypothyroidism, unspecified; Translations: [Hypothyroidism]Onset: 926943-82-2262KpctqteOvucckalkvxt (3 sources)CONTACT W/AND (SUSP) EXPOS COVID-19; Translations: [CONTACT W/AND (SUSP) EXPOS COVID-19]Onset: 57-34-8893Fwgmtymtsbxn (3 sources)LOW BACK PAIN, UNSPECIFIED; Translations: [LOW BACK PAIN, UNSPECIFIED]Onset: 99-27-8469Rtwkadxscqwx (1 source)PERSONAL HISTORY OF COVID-19; Translations: [PERSONAL HISTORY OF COVID-19]Onset: 95-47-2625Eguafnpqnlgo (2 sources)COUGH, UNSPECIFIED; Translations: [COUGH, UNSPECIFIED]Onset: 74-24-4785Vmdrimetuzbw (16 sources)Please arrange a follow-up appointment once [...] the cause of diseases classified elsewhere] Onset: 05-63-7392ZdmiynfgSbppdzh obstructive pulmonary disease and bronchiectasis (2 sources)Bronchitis, not specified as acute or chronic; Translations: [BRONCHITIS NOT SPEC ACUTE/CHRON]Onset: 26-08-0340BjgocwbeTfiqzxiclz and other anemia (1 source)Anemia, unspecified; Translations: [ANEMIA UNSPECIFIED]Onset: 86-66-5222LunuqynjCkcysry (1 source)Other specified mycoses; Translations: [OTHER SPECIFIED MYCOSES]Onset: 45-82-9161GyufpnhwBtdzvzidunl chest pain (7 sources)Chest pain, unspecified; Translations: [Other chest pain]Onset: 43-31-5509FqtlexniVgzam connective tissue disease (1 source)Myalgia, unspecified site; Translations: [MYALGIA UNSPECIFIED SITE] Onset: 53-61-1902DjbqhongUoxbx gastrointestinal disorders (1 source)Dysphagia, unspecified; Translations: [DYSPHAGIA UNSPECIFIED]Onset: 20-37-9213NuowxyihWaocf screening for suspected conditions (not mental disorders or infectious disease) (1 source)Other specified abnormal findings of blood chemistry; Translations: [OTH SPEC ABNORMAL FINDINGS BLDCHEM]Onset: 67-24-3294AlknlpfqMthqmjmnl (except that caused by tuberculosis or sexually transmitted disease) (4 sources)Pneumonia, unspecified organism; Translations: [PNEUMONIA UNSPECIFIED ORGANISM]Onset: 90-43-6492GgfqvbleEvkkhueu codes; unclassified (1 source)Other specified health status; Translations: [Other specified health status]Onset: 72-98-0977AxongojaHvbejilxisqa (1 source)LOW BACK PAIN, UNSPECIFIED; Translations: [LOW BACK PAIN, UNSPECIFIED] Onset: 21-12-9512Xhxqgnnivgsw (1 source)COUGH, UNSPECIFIED; Translations: [COUGH, UNSPECIFIED]Onset: 07-27-8692Mrmenxekwkbo (1 source)CONTACT W/AND (SUSP) EXPOS COVID-19; Translations: [CONTACT W/AND (SUSP) EXPOS COVID-19]Onset: 03-17-2022 Results Test NameValueInterpretationReference MdqlyLrkxddli29ls [id number] echo result from : MD Sierra Elise [...] the next 5-7 days. Order faxed to [facility] [place]. Patient verbalized understanding. Surgery clearance fax[facility] to [facility] HospitalOffice Visiton 57-09-3295Ucqutg-up [id number] Rehan Trejo 1965 Provider Department Center 05/22/2025 [id number]-XWAFSHELISABETH DAO TOMMY [place] Family History Family Status - Relation Status Age at Mother Alive Father Level of Service:43698 [place] OFFICE/OUTPATIENT ESTABLISHED MOD MDM 30 MIN Reason for Visit and Comments: Follow-up [520021] - Surgery clearance Left hip replacement Jun 01 Dr. Zhang loop recorderMobitz type 1 atrioventricular block [Other] Migraine [429452] Hyperlipidemia [182] Ostium secundum type atrial septal defect [Other] Peripheral venous insufficiency [Other] Hypertension [237166] NSTEMI [Other] Coronary Artery Disease [187][facility] HospitalOrders Onlyon 51-74-6886Jvpqse [id number] Rehan Trejo 1965 Provider Department Center 05/10/2025 [facility] CARD [place] HeartVAS No family history on fileNormalUniversGreen Cross HospitalLesion biopsy on 28-02-6895Oyxl of biopsy: punch Informed consent: discussed and [...] used: 2 Specimen sent for: H&E Photo [facility] HealthcareOrders Onlyon 79-85-7055Ugucro Only [id number] Rehan Trejo 1965 M Date Provider Department Center 03/09/2025 Edd-PETAR [facility]NEY [facility] CARD [facility] HeartVAS No family history on fileNormalUniversity of White Rock Medical CenterBasic Metabolic Panelon 35-32-3276Nelejkghyh Clr Calc Mnfyvkfj[address] [place] [address] Physician GroupComment on above:Result Comment: PERFORMED BY: [address] [place] [address] PATHOLOGIST EVENT SPECIALIST PRODUCT DEMONSTRATOR SOFIE MONTEIRO M.D.Performed By: #### CBC, CMP wRFX A1C #### [facility] [address] [place] [id number] USAGFR/1.73 sq M.predicted MDRD (S/P/Bld) [Vol rate/Area] mL/min/{1.73_m2}NormalThe [facility] Physician [facility] CenterComment on above:Performed By: #### CBC, CMP wRFX A1C #### [facility] [address] [place] [id number] USABasophils [#/volume] in Blood by Automated countOrdered By: Nishant Ceja on 27-54-5146Hgyelrzvp (Bld) [#/Vol]0.0 10*3/uL0.0-0.2 [facility] CenterComment on above:Result Comment: PERFORMED BY: [address] [place] [id number] PATHOLOGIST EVENT SPECIALIST PRODUCT DEMONSTRATOR SOFIE MONTEIRO M.D.Performed By: #### CBC, CMP wRFX A1C #### [place] [id number] USABasophils/100 leukocytes in Blood by Automated count Ordered By: Nishant Ceja on 16-36-7784Yiekofdyh/100 WBC (Bld)0.5 %.[facility] CenterComment on above:Performed By: #### CBC, CMP wRFX A1C #### [place] [address] USACalcium [Mass/volume] in Serum or PlasmaOrdered By: Nishant Ceja on 79-88-3409Taxpgyt [Mass/Vol]8.2 mg/dLLow8.6-10.3FWhite HospitalComment on above:Performed By: #### CBC, CMP wRFX A1C #### [place] [address] USACarbon dioxide, total [Moles/volume] in Serum or Plasma Ordered By: Nishant Ceja on 88-14-1369XK9 [Moles/Vol]19.9 mmol/LLow21.0-31.0 [facility] CenterComment on above:Performed By: #### CBC, CMP wRFX A1C #### [place] [id number] USAChloride [Moles/volume] in Serum or PlasmaOrdered By: Nishant Ceja on 82-32-4808Tvfnsxai [Moles/Vol]102 mmol/S11-023TxjmwmwlxTrumbull Regional Medical CenterComment on above:Performed By: #### CBC, CMP wRFX A1C #### [facility] [address] [place], [place] [address] USAComplete Blood Count Auto Diffon 16-62-0488Zcgo Corpuscular HGB Conc33.4 g/iQEmnqgw07.5-35.6[facility] Physician GroupComment on above:Performed By: #### CBC, CMP wRFX A1C #### [address] [place] [address] USANRBC%0.1 /100{WBC}Normal0-0.5[facility] Comment on above:Performed By: #### CBC, CMP wRFX A1C #### [facility] [address] [place] [address] USAWhite Blood Count6.9 [CFU]/mLNormal4.1-10.5[facility] Physician GroupComment on above:Performed By: #### CBC, CMP wRFX A1C #### [place] [address] USACreatinine [Mass/volume] in Serum or PlasmaOrdered By: Nishant Ceja on 87-12-2200Mphmboznxx [Mass/Vol]0.76 mg/dL0.70-1.30[facility] CenterComment on above:Performed By: #### CBC, CMP wRFX A1C #### [facility] [address] [place] [address] USAEosinophils [#/volume] in Blood by Automated countOrdered By: Nishant Ceja on 49-75-2650Jleaepuqknw (Bld) [#/Vol]0.6 10*3/uLHigh0.0-0.45 [facility] CenterComment on above:Performed By: #### CBC, CMP wRFX A1C #### [facility] [address] [place] [address] USAEosinophils/100 leukocytes in Blood by Automated count Ordered By: Nishant Ceja on 55-17-6244Hpacwosclhs/100 WBC (Bld)8.6 %.[facility] CenterComment on above:Performed By: #### CBC, CMP wRFX A1C #### [facility] [address] [place] [address] USAErythrocyte distribution width [Ratio] by Automated count Ordered By: Nishant Ceja on 02-99-5218Lexmlftznam distribution width (RBC) [Ratio]13.5 %12.0-14.8[facility] Medical CenterComment on above: Performed By: #### CBC, CMP wRFX A1C #### [address] [place] [address] USAErythrocytes [#/volume] in Blood by Automated countOrdered By: Nishant Ceja on 01-80-6575YHC (Bld) [#/Vol]4.31 10*6/uL3.90-5.60[facility] CenterComment on above:Performed By: #### CBC, CMP wRFX A1C #### [facility] [address] [place] [id number] USAGlucose [Mass/volume] in Serum or PlasmaOrdered By: Nishant Ceja on 72-06-9607Wwjpqak [Mass/Vol]77 mg/jM50-420FdmxloicuTrumbull Regional Medical CenterComment on above:ADA recommended reference rangeRandom Glucose Reference [...] By: #### CBC, CMP wRFX A1C #### [place] [id number] USAHematocrit [Volume Fraction] of Blood by Automated count Ordered By: Nishant Ceja on 82-04-6852Utckeivyle (Bld) [Volume fraction]42.9 % 38.8-50.0[facility] CenterComment on above:Performed By: #### CBC, CMP wRFX A1C #### [address] [address] USAHemoglobin [Mass/volume] in BloodOrdered By: Nishant Ceja on 21-51-9850Eipscuctdk (Bld) [Mass/Vol]14.3 g/dL13.0-17.0[facility] CenterComment on above:Performed By: #### CBC, CMP wRFX A1C #### [address] [address] USALeukocytes [#/volume] corrected for nucleated erythrocytes in Blood by Automated counOrdered By: Nishant Ceja on 71-78-9414XNB corrected for nucl RBC Auto (Bld) [#/Vol]6.9 10*3/uL4.1-10.5FWhite HospitalLeukocytes [#/volume] in Blood by Automated countOrdered By: Nishant Ceja on 42-54-8005DHB (Bld) [#/Vol]6.9 10*3/uL4.1-10.5FWhite HospitalComment on above:Performed By: #### CBC, CMP wRFX A1C #### [facility] [address] [place] [id number] USALymphocytes [#/volume] in Blood by Automated countOrdered By: Nishant Ceja on 44-35-5369Dilsuskqfan (Bld) [#/Vol]2.1 10*3/uL1.00-4.8 [facility] CenterComment on above:Performed By: #### CBC, CMP wRFX A1C #### [facility] [address] [place] [address] USALymphocytes/100 leukocytes in Blood by Automated count Ordered By: Nishant Ceja on 52-81-3519Gyanqashpzj/100 WBC (Bld)31.0 %.[facility] Medical CenterComment on above:Performed By: #### CBC, CMP wRFX A1C #### [facility] [address] [place], [place] [address] [facility] [Entitic mass] by Automated countOrdered By: Nishant Ceja on 76-46-7704WTI (RBC) [Entitic mass]33.2 pg27.5-35.2FWhite HospitalComment on above:Performed By: #### CBC, CMP wRFX A1C #### [facility] [address] [place], [place] [address] [facility] Auto (RBC) [Mass/Vol]Ordered By: Nishant Ceja on 67-66-7378ZGAU (RBC) [Mass/Vol]33.4 g/dL32.5-35.6FWhite HospitalMCV [Entitic volume] by Automated countOrdered By: Nishant Ceja on 67-56-0863OSQ (RBC) [Entitic vol]99.5 fL83.5-101[facility] CenterComment on above:Performed By: #### CBC, CMP wRFX A1C #### [facility] [address] [place] [id number] USAMonocytes [#/volume] in Blood by Automated countOrdered By: Nishant Ceja on 75-84-8369Hghktmyea (Bld) [#/Vol]0.7 10*3/uL0.0-0.8 [facility] CenterComment on above:Performed By: #### CBC, CMP wRFX A1C #### [facility] [address] [place] [address] USAMonocytes/100 leukocytes in Blood by Automated count Ordered By: Nishant Ceja on 47-42-9913Moobbzocy/100 WBC (Bld)10.5 %.[facility] CenterComment on above:Performed By: #### CBC, CMP wRFX A1C #### [facility] [address] [place] [address] USANeutrophils [#/volume] in Blood by Automated countOrdered By: Nishant Ceja on 98-79-7726Pycyjvfuqym (Bld) [#/Vol]3.4 10*3/uL1.8-7.7 [facility] CenterComment on above:Performed By: #### CBC, CMP wRFX A1C #### [facility] [address] [place] [address] USANeutrophils/100 leukocytes in Blood by Automated count Ordered By: Nishant Ceja on 53-07-0998Sehnqjyjbqe/100 WBC (Bld)49.4 %.[facility] CenterComment on above:Performed By: #### CBC, CMP wRFX A1C #### [facility] [address] [place] [address] USANo Panel InformationOrdered By: Nishant Ceja on 96-68-3211Vrybupbwn GFR (CKD-EPI)> 60.0 mL/MinTrumbull Regional Medical Center Pharmacy Creatinine Clearance (Elop301.16[facility] Nucleated erythrocytes [Presence] in Blood by Automated countOrdered By: Nishant Ceja on 58-29-6367Bpaazfaiv RBC Auto Ql (Bld)0.1 /100{WBC}0-0.5FWhite HospitalPlatelet mean volume [Entitic volume] in Blood by Automated countOrdered By: Nishant Ceja on 97-39-6941Ajeeozii mean volume (Bld) [Entitic vol]8.5 fL6.6-10.1FWhite HospitalComment on above: Performed By: #### CBC, CMP wRFX A1C #### [facility] [address] [place] [address] USAPlatelets [#/volume] in Blood by Automated countOrdered By: Nishant Ceja on 58-25-6691Rfqmcxjay (Bld) [#/Vol]164 10*3/uH180-709 [facility] CenterComment on above:Performed By: #### CBC, CMP wRFX A1C #### [facility] [address] [place] [address] USAPotassium [Moles/volume] in Serum or PlasmaOrdered By: Nishant Ceja on 04-34-9529Mmgifbwzi [Moles/Vol]4.0 mmol/L3.5-5.1FWhite HospitalComment on above:Performed By: #### CBC, CMP wRFX A1C #### [facility] [address] [place] [address] USASerum or plasma anion gap determinationOrdered By: Nishant Ceja on 86-56-8836Odtlr gap [Moles/Vol]12.1 mmol/L6.0-15.0[facility] CenterComment on above:Performed By: #### CBC, CMP wRFX A1C #### [facility] [address] [place] [address] USASodium [Moles/volume] in Serum or PlasmaOrdered By: Nishant Ceja on 15-52-1658Lxfcrx [Moles/Vol]130 mmol/RCzf044-781NlhebiotjTrumbull Regional Medical CenterComment on above:Performed By: #### CBC, CMP wRFX A1C #### [facility] [address] [place] [address] USAUrea nitrogen [Mass/volume] in Serum or PlasmaOrdered By: Nishant Cjea on 28-85-4966Finc nitrogen [Mass/Vol]11 mg/dL7-25[facility] CenterComment on above:Performed By: #### CBC, CMP wRFX A1C #### [facility] [address] [place] [address] USABasic Metabolic Panelon 04-14-0942Jgxeo gap [Moles/Vol]8.9 mmol/LNormal6.0-15.0[facility] Physician [facility] CenterComment on above:Performed By: #### CBC, BMP #### [facility] [address] [place] [address] USACalcium [Mass/Vol]8.7 mg/dLNormal8.6-10.3[facility] Physician [facility] CenterComment on above:Performed By: #### CBC, BMP #### [facility] [address] [place] [address] USAChloride [Moles/Vol]98 mmol/BSdrqyp12-249Yel [facility] Hospital Of PittsburghComment on above:Performed By: #### CBC, BMP #### [facility] [address] [place] [address] USACO2 [Moles/Vol]24.2 mmol/CYmjtat58.0-31.0The [facility] Hospital Of PittsburghComment on above:Performed By: #### CBC, BMP #### [place] [address] USACreatinine [Mass/Vol]0.63 mg/dLLow0.70-1.30[facility] Physician [facility] CenterComment on above:Performed By: #### CBC, BMP #### [facility] [address] [place] [address] USACreatinine Clr Calc Nelejahl986.04NormRiverview Health Institutee [facility] Physician [facility] CenterComment on above:Result Comment: PERFORMED BY: [place] [address] PATHOLOGIST EVENT SPECIALIST PRODUCT DEMONSTRATOR SOFIE MONTEIRO M.D.Performed By: #### CBC, BMP #### [address] [place] [address] USAGFR/1.73 sq M.predicted MDRD (S/P/Bld) [Vol rate/Area] mL/min/{1.73_m2}NormalThe [facility] Physician GroupComment on above:Performed By: #### CBC, BMP #### [place] [address] USAGlucose [Mass/Vol]88 mg/wSCfrjyc58-033Sib [facility] Physician GroupComment on above:Result Comment: Random Glucose Reference Range is dependent on time and content of last meal. Glucose of more than 200 mg/dL in a nonstressed, ambulatory subject supports the diagnosis of Diabetes Mellitus. ADA recommended reference rangePerformed By: #### CBC, BMP #### [place] [address] USAPotassium [Moles/Vol]4.1 mmol/LNormal3.5-5.1[facility] Physician GroupComment on above:Performed By: #### CBC, BMP #### [place] [address] USASodium [Moles/Vol]127 mmol/SMsn404-825Oov [facility] Physician GroupComment on above:Performed By: #### CBC, BMP #### [place] [address] USAUrea nitrogen [Mass/Vol]7 mg/dLNormal7-25The [facility] Physician GroupComment on above:Performed By: #### CBC, BMP #### [place] [address] USAComplete Blood Count Auto Diffon 10-85-1716Fjtfseikm (Bld) [#/Vol]0.1 10*3/uLNormal0.0-0.2[facility] Physician GroupComment on above: Result Comment: PERFORMED BY: [place] [address] PATHOLOGIST EVENT SPECIALIST PRODUCT DEMONSTRATOR SOFIE MONTEIRO M.D.Performed By: #### CBC, BMP #### [place] [address] USABasophils/100 WBC (Bld)1.2 %Normal.[facility] Physician GroupComment on above:Performed By: #### CBC, BMP #### [place] [address] USAEosinophils (Bld) [#/Vol]0.6 10*3/uLHigh0.0-0.45[facility] Physician GroupComment on above:Performed By: #### CBC, BMP #### [place] [address] USAEosinophils/100 WBC (Bld)6.7 %Normal.[facility] Physician GroupComment on above:Performed By: #### CBC, BMP #### [place] [address] USAErythrocyte distribution width (RBC) [Ratio]13.1 %Normal 12.0-14.8The [facility] Physician GroupComment on above:Performed By: #### CBC, BMP #### [place] [address] USAHematocrit (Bld) [Volume fraction]42.1 %Zhylfd36.8-50.0[facility] Physician GroupComment on above:Performed By: #### CBC, BMP #### [place] [address] USAHemoglobin (Bld) [Mass/Vol]14.0 g/kFVoqnzg85.0-17.0The [facility] Physician GroupComment on above:Performed By: #### CBC, BMP #### [place] [address] USALymphocytes (Bld) [#/Vol]2.6 10*3/uLNormal1.00-4.8The [facility] Physician GroupComment on above:Performed By: #### CBC, BMP #### [place] [address] USALymphocytes/100 WBC (Bld)29.7 %Normal.[facility] Physician GroupComment on above:Performed By: #### CBC, BMP #### [address] [place] [address] USAH (RBC) [Entitic mass]33.4 vcHlyoua33.5-35.2The [facility] Physician GroupComment on above:Performed By: #### CBC, BMP #### [facility] [address] [place] [address] USAMCV (RBC) [Entitic vol]100.2 tPQusoqg45.5-101The [facility] Physician GroupComment on above:Performed By: #### CBC, BMP #### [facility] [address] [place] [address] USAMean Corpuscular HGB Conc33.3 g/hYKhwivk28.5-35.6The [facility] Physician GroupComment on above:Performed By: #### CBC, BMP #### [place] [address] USAMonocytes (Bld) [#/Vol]0.8 10*3/uLNormal0.0-0.8The [facility] Physician GroupComment on above:Performed By: #### CBC, BMP #### [place] [address] USAMonocytes/100 WBC (Bld)8.8 %Normal.The [facility] Physician GroupComment on above:Performed By: #### CBC, BMP #### [place] [address] USANeutrophils (Bld) [#/Vol]4.7 10*3/uLNormal1.8-7.7The [facility] Physician GroupComment on above:Performed By: #### CBC, BMP #### [place] [address] USANeutrophils/100 WBC (Bld)53.6 %Normal.The [facility] Physician GroupComment on above:Performed By: #### CBC, BMP #### [place] [address] USANRBC%0.2 /100{WBC}Normal0-0.5[facility] Comment on above:Performed By: #### CBC, BMP #### [facility] [address] [place] [address] USAPlatelet mean volume (Bld) [Entitic vol]8.6 fLNormal 6.6-10.1The [facility] Physician GroupComment on above:Performed By: #### CBC, BMP #### [facility] [address] [place] [address] USAPlatelets (Bld) [#/Vol]186 10*3/sPSljywv074-787Rrh [facility] Physician GroupComment on above:Performed By: #### CBC, BMP #### [place] [address] USARBC (Bld) [#/Vol]4.20 10*6/uLNormal3.90-5.60The [facility] Physician GroupComment on above:Performed By: #### CBC, BMP #### [place] [address] USAWBC (Bld) [#/Vol]8.8 10*3/uLNormal4.1-10.5The [facility] Physician GroupComment on above:Performed By: #### CBC, BMP #### [place] [address] USAWhite Blood Count8.8 [CFU]/mLNormal4.1-10.5The [facility] Physician GroupComment on above:Performed By: #### CBC, BMP #### [place] [address] USAAlanine aminotransferase [Enzymatic activity/volume] in Serum or PlasmaOrdered By: Nishant Ceja on 88-25-5872ZRV [Catalytic activity/Vol]45 U/LNormal7-52[facility] CenterComment on above: Performed By: #### CBC, CMP wRFX A1C #### [facility] [address] [place] [address] USAAlbumin [Mass/volume] in Serum or Plasma by Bromocresol green (BCG) dye binding methoOrdered By: Nishant Ceja on 37-13-8592Ucfwhxf BCG dye [Mass/Vol]4.2 g/dL3.5-5.7FWhite HospitalAlkaline phosphatase [Enzymatic activity/volume] in Serum or PlasmaOrdered By: Nishant Ceja on 31-01-0315JGB [Catalytic activity/Vol]117 U/RSyls85-024CbkxzbnmyTrumbull Regional Medical CenterComment on above:Result Comment: PERFORMED BY: [facility] [address] [place] [address] PATHOLOGIST EVENT SPECIALIST PRODUCT DEMONSTRATOR SOFIE MONTEIRO M.D.Performed By: #### CBC, CMP wRFX A1C #### [facility] [address] [place] [id number] USAAppearance of UrineOrdered By: Nishant Ceja on 02-06-2025 Appearance (U)ClearNormalClearTrumbull Regional Medical CenterComment on above: Order Comment: Name Collection Type:: Clean-Voided MidstreamPerformed By: #### CBC, CMP wRFX A1C #### [facility] [address] [place] [address] USAAspartate aminotransferase [Enzymatic activity/volume] in Serum or PlasmaOrdered By: Nishant Ceja on 97-42-1513YED [Catalytic activity/Vol]39 U/OIznqmr13-11KqgdbbeluTrumbull Regional Medical CenterComment on above: Performed By: #### CBC, CMP wRFX A1C #### [facility] [address] [place], [place] [address] USABasophils [#/volume] in Blood by Automated countOrdered By: Nishant Ceja on 47-22-1226Xkohdyjls (Bld) [#/Vol]0.1 10*3/uLNormal0.0-0.2 [facility] CenterComment on above:Result Comment: PERFORMED BY: [facility] [address] [place] [address] PATHOLOGIST EVENT SPECIALIST PRODUCT DEMONSTRATOR SOFIE MONTEIRO M.D.Performed By: #### CBC, CMP wRFX A1C #### [facility] [address] [place], [place] [address] USABasophils/100 leukocytes in Blood by Automated count Ordered By: Nishant Ceja on 95-27-1241Nkgjhznig/100 WBC (Bld)0.9 %Normal. [facility] CenterComment on above:Performed By: #### CBC, CMP wRFX A1C #### [facility] [address] [place] [address] USABilirubin Test strip Ql (U)Ordered By: Nishant Ceja on 23-18-5200Kdshoddpq Ql (U)NegativeNegativeTrumbull Regional Medical Center Bilirubin.total [Mass/volume] in Serum or PlasmaOrdered By: Nishant Ceja on 62-88-5710Rekgdhxpy [Mass/Vol]0.6 mg/dLNormal0.3-1.0[facility] CenterComment on above:Performed By: #### CBC, CMP wRFX A1C #### [place] [address] USACMP with reflex to A1Con 46-43-2957Muobdgx [Mass/Vol]4.2 g/dLNormal3.5-5.7The [facility] Physician GroupComment on above:Performed By: #### CBC, CMP wRFX A1C #### [place] [address] USAGFR/1.73 sq M.predicted MDRD (S/P/Bld) [Vol rate/Area] mL/min/{1.73_m2}NormalThe [facility] Physician GroupComment on above:Performed By: #### CBC, CMP wRFX A1C #### [place] [address] USACalcium [Mass/volume] in Serum or PlasmaOrdered By: Nishant Ceja on 29-89-0625Ogchqoa [Mass/Vol]9.1 mg/dLNormal8.6-10.3FWhite HospitalComment on above:Performed By: #### CBC, CMP wRFX A1C #### [place] [id number] USACarbon dioxide, total [Moles/volume] in Serum or Plasma Ordered By: Nishant Ceja on 77-97-0123OK0 [Moles/Vol]23.4 mmol/GFelusz77.0-31.0 [facility] CenterComment on above:Performed By: #### CBC, CMP wRFX A1C #### [facility] [address] [place] [address] USAChloride [Moles/volume] in Serum or PlasmaOrdered By: Nishant Ceja on 05-48-8408Myndqbwv [Moles/Vol]98 mmol/MVwprnc71-279WqqvpaesqTrumbull Regional Medical CenterComment on above:Performed By: #### CBC, CMP wRFX A1C #### [facility] [address] [place] [address] USAColor of Urine by AutoOrdered By: Nishant Ceja on 68-19-8408Riymt (U)Light-yellowNormalYellowTrumbull Regional Medical Center Comment on above:Order Comment: Name Collection Type:: Clean-Voided Midstream Performed By: #### CBC, CMP wRFX A1C #### [place] [address] USAComplete Blood Count Auto Diffon 35-15-6549Cdpn Corpuscular HGB Conc33.9 g/nGWhxjuu15.5-35.6The [facility] Physician GroupComment on above:Performed By: #### CBC, CMP wRFX A1C #### [place] [address] USANRBC%0.1 /100{WBC}Normal0-0.5[facility] Comment on above:Performed By: #### CBC, CMP wRFX A1C #### [place] [address] USAWhite Blood Count5.4 [CFU]/mLNormal4.1-10.5The [facility] Physician GroupComment on above:Performed By: #### CBC, CMP wRFX A1C #### [facility] [address] [place] [address] USACreatinine [Mass/volume] in Serum or PlasmaOrdered By: Nishant Ceja on 67-14-9539Mdklboyohk [Mass/Vol]0.78 mg/dLNormal0.70-1.30 [facility] CenterComment on above:Performed By: #### CBC, CMP wRFX A1C #### [facility] [address] [place] [address] USAECG 12 lead ECGon 49-33-3779MTU 12 lead ECGMERCY [facility]FF[facility] [place] [address] [place], [place] [address] Electrocardiograph Report Signed Patient: Rehan Trejo MR#: [id number] : 1965 Acct:[id number] Age/Sex: 60 / M ADM Date: 02/06/25 Loc: Room: Type: [facility] Attending Dr: Nishant Ceja DO Ordering Provider: [...] Signed By Deep Amado MD 0 02/06/[address] [place] [address] Physician GroupEosinophils [#/volume] in Blood by Automated countOrdered By: Nishant Ceja on 98-13-0881Jjzzcwlhcpd (Bld) [#/Vol]0.1 10*3/uLNormal0.0-0.45[facility] CenterComment on above:Performed By: #### CBC, CMP wRFX A1C #### [facility] [address] [place], [place] [address] USAEosinophils/100 leukocytes in Blood by Automated count Ordered By: Nishant Ceja on 09-20-9558Gxxawipllqy/100 WBC (Bld)2.4 %Normal. [facility] CenterComment on above:Performed By: #### CBC, CMP wRFX A1C #### [facility] [address] [place] [address] USAErythrocyte distribution width [Ratio] by Automated count Ordered By: Nishant Ceja on 69-78-2931Vgfzmmzsojp distribution width (RBC) [Ratio]13.9 %Oawbtj51.0-14.8[facility] CenterComment on above: Performed By: #### CBC, CMP wRFX A1C #### [place] [address] USAErythrocytes [#/volume] in Blood by Automated countOrdered By: Nishant Ceja on 87-16-0342YYB (Bld) [#/Vol]4.08 10*6/uLNormal3.90-5.60 [facility] CenterComment on above:Performed By: #### CBC, CMP wRFX A1C #### [place] [address] USAGlucose [Mass/volume] in Serum or PlasmaOrdered By: Nishant Ceja on 71-35-8393Vpkiwkx [Mass/Vol]82 mg/uTDudxnd74-933MrcqsbnhiTrumbull Regional Medical CenterComment on above:Performed By: #### CBC, CMP wRFX A1C #### [facility] [address] [place] [address] USAGlucose [Mass/volume] in Urine by Test stripOrdered By: Nishant Ceja on 62-92-6078Vhmiwqj Test strip (U) [Mass/Vol]Normal mg/dLNormal [facility] Medical CenterHematocrit [Volume Fraction] of Blood by Automated countOrdered By: Nishant Ceja on 68-99-3021Pikibykehr (Bld) [Volume fraction]40.9 %Aekhut46.8-50.0[facility] CenterComment on above: Performed By: #### CBC, CMP wRFX A1C #### [place] [id number] USAHemoglobin Test strip Ql (U)Ordered By: Nishant Ceja on 17-23-9693Yaecmeztwj Ql (U)NegativeNegativeTrumbull Regional Medical Center Hemoglobin [Mass/volume] in BloodOrdered By: Nishant Ceja on 02-06-2025 Hemoglobin (Bld) [Mass/Vol]13.8 g/hIXimedh73.0-17.0Tr[facility] Medical CenterComment on above:Performed By: #### CBC, CMP wRFX A1C #### [facility] [address] [place] [address] USAKetones [Presence] in Urine by Test stripOrdered By: Nishant Ceja on 43-80-3984Cvzurvl Ql (U)2+NormalNegParkview Health Bryan HospitalComment on above:Order Comment: Name Collection Type:: Clean- Voided MidstreamPerformed By: #### CBC, CMP wRFX A1C #### [facility] [address] [place] [address] USALeukocyte esterase [Presence] in Urine by Test strip Ordered By: Nishant Ceja on 48-04-6503Mkxbamaxa esterase Test strip Ql (U) NegativeNormalNegParkview Health Bryan HospitalComment on above:Order Comment: Name Collection Type:: Clean-Voided MidstreamPerformed By: #### CBC, CMP wRFX A1C #### [facility] [address] [place] [id number] USALeukocytes [#/volume] corrected for nucleated erythrocytes in Blood by Automated counOrdered By: Nishant Ceja on 54-61-5527YWU corrected for nucl RBC Auto (Bld) [#/Vol]5.4 10*3/uL4.1-10.5FWhite HospitalLeukocytes [#/volume] in Blood by Automated countOrdered By: Nishant Ceja on 78-98-0822UKF (Bld) [#/Vol]5.4 10*3/uLNormal4.1-10.5FWhite HospitalComment on above:Performed By: #### CBC, CMP wRFX A1C #### [facility] [address] [place] [id number] USALymphocytes [#/volume] in Blood by Automated countOrdered By: Nishant Ceja on 91-87-7500Gcjgalqersu (Bld) [#/Vol]1.8 10*3/uLNormal 1.00-4.8Tr[facility] Medical CenterComment on above:Performed By: #### CBC, CMP wRFX A1C #### [facility] [address] [place] [id number] USALymphocytes/100 leukocytes in Blood by Automated count Ordered By: Nishant Ceja on 36-11-0839Nayjznzocre/100 WBC (Bld)33.6 %Normal. [facility] Medical CenterComment on above:Performed By: #### CBC, CMP wRFX A1C #### [facility] [address] [place] [address] [facility] [Entitic mass] by Automated countOrdered By: Nishant Ceja on 07-90-7772OZA (RBC) [Entitic mass]33.9 beTpuvwf96.5-35.2FWhite HospitalComment on above:Performed By: #### CBC, CMP wRFX A1C #### [facility] [address] [place], [place] [address] [facility] Auto (RBC) [Mass/Vol]Ordered By: Nishant Ceja on 05-57-2631DTGP (RBC) [Mass/Vol]33.9 g/dL32.5-35.6FWhite HospitalMCV [Entitic volume] by Automated countOrdered By: Nishant Ceja on 15-95-0277ZAI (RBC) [Entitic vol]100.2 dROydqil25.5-101Tr[facility] Medical CenterComment on above:Performed By: #### CBC, CMP wRFX A1C #### [facility] [address] [place], [place] [address] USAMonocytes [#/volume] in Blood by Automated countOrdered By: Nishant Ceja on 23-75-6219Pneyedllu (Bld) [#/Vol]0.5 10*3/uLNormal0.0-0.8 [facility] Medical CenterComment on above:Performed By: #### CBC, CMP wRFX A1C #### [facility] [address] [place], [place] [address] USAMonocytes/100 leukocytes in Blood by Automated count Ordered By: Nishant Ceja on 98-23-8850Opmfrnzim/100 WBC (Bld)10.1 %Normal. [facility] Medical CenterComment on above:Performed By: #### CBC, CMP wRFX A1C #### [facility] [address] [place] [address] USANeutrophils [#/volume] in Blood by Automated countOrdered By: Nishant Ceja on 51-35-0563Dvlhkrqzhvn (Bld) [#/Vol]2.8 10*3/uLNormal1.8-7.7 [facility] CenterComment on above:Performed By: #### CBC, CMP wRFX A1C #### [facility] [address] [place] [address] USANeutrophils/100 leukocytes in Blood by Automated count Ordered By: Nishant Ceja on 49-00-4220Zyrxcdicfup/100 WBC (Bld)53.0 %Normal. [facility] Medical CenterComment on above:Performed By: #### CBC, CMP wRFX A1C #### [facility] [address] [place] [address] USANitrite Test strip Ql (U)Ordered By: Nishant Ceja on 89-03-1774Zesqxla Ql (U)NegativeNegativeTrumbull Regional Medical CenterNo Panel InformationOrdered By: Nishant Ceja on 66-36-8349Wkjzadciz GFR (CKD-EPI)> 60.0 mL/MinTrumbull Regional Medical CenterPharmacy Creatinine Clearance (Chem N/AFWhite HospitalNucleated erythrocytes [Presence] in Blood by Automated countOrdered By: Nishant Ceja on 56-25-9027Bsxnuilha RBC Auto Ql (Bld)0.1 /100{WBC}0-0.5FWhite HospitalPlatelet mean volume [Entitic volume] in Blood by Automated countOrdered By: Nishant Ceja on 24-65-7112Hjqjjbmm mean volume (Bld) [Entitic vol]7.9 fLNormal6.6-10.1FWhite HospitalComment on above:Performed By: #### CBC, CMP wRFX A1C #### [facility] [address] [place] [address] USAPlatelets [#/volume] in Blood by Automated countOrdered By: Nishant Ceja on 58-60-6833Zzbvcrcpc (Bld) [#/Vol]225 10*3/zPMcqgto553-432 [facility] CenterComment on above:Performed By: #### CBC, CMP wRFX A1C #### [facility] [address] [place] [address] USAPotassium [Moles/volume] in Serum or PlasmaOrdered By: Nishant Ceja on 12-60-6403Oukmzirtj [Moles/Vol]4.1 mmol/LNormal3.5-5.1FWhite HospitalComment on above:Performed By: #### CBC, CMP wRFX A1C #### [place] [address] USAProtein Test strip (U) [Mass/Vol]Ordered By: Nishant Ceja on 08-17-2737Nflfmjd (U) [Mass/Vol]NegativeNegativeTrumbull Regional Medical CenterProtein [Mass/volume] in Serum or PlasmaOrdered By: Nishant Ceja on 89-41-0173Adffxqw [Mass/Vol]6.9 g/dLNormal6.4-8.9[facility] Medical CenterComment on above:Performed By: #### CBC, CMP wRFX A1C #### [place] [address] USASerum globulin measurement by calculation (mass/volume) Ordered By: Nishant Ceja on 72-42-9885Gmqbseni (S) [Mass/Vol]2.7 g/dLNormal [facility] CenterComment on above:Performed By: #### CBC, CMP wRFX A1C #### [facility] [address] [place] [address] USASerum or plasma albumin/globulin mass ratioOrdered By: Nishant Ceja on 01-65-8988Sssxzwm/Globulin [Mass ratio]1.6 {ratio}Normal [facility] Medical CenterComment on above:Performed By: #### CBC, CMP wRFX A1C #### [place] [address] USASerum or plasma anion gap determinationOrdered By: Nishant Ceja on 44-61-9919Efolp gap [Moles/Vol]14.7 mmol/LNormal6.0-15.0[facility] Medical CenterComment on above:Performed By: #### CBC, CMP wRFX A1C #### [facility] [address] [place] [address] USASodium [Moles/volume] in Serum or PlasmaOrdered By: Nishant Ceja on 33-29-9410Eddkgd [Moles/Vol]132 mmol/UEqr606-933YozwhpdomTrumbull Regional Medical CenterComment on above:Performed By: #### CBC, CMP wRFX A1C #### [facility] [address] [place] [address] USASpecific gravity Test strip (U) [Rel density]Ordered By: Nishant Ceja on 51-38-1047Wavvdykc gravity (U) [Rel density]1.0141.001-1.030 [facility] Medical CenterUrea nitrogen [Mass/volume] in Serum or Plasma Ordered By: Nishant Ceja on 91-53-3005Cfvu nitrogen [Mass/Vol]7 mg/dLNormal02-06 [facility] CenterComment on above:Performed By: #### CBC, CMP wRFX A1C #### [facility] [address] [place] [address] USAUrinalysison 03-07-5017Tzlowufcq,UrineNegativeNormal NegativeHca Florida Suwannee Emergency Physician GroupComment on above:Order Comment: Name Collection Type:: Clean-Voided MidstreamPerformed By: #### CBC, CMP wRFX A1C #### [facility] [address] [place] [address] USAGlucose Ql (U)NormalNormalNormalThe [facility] Physician GroupComment on above:Order Comment: Name Collection Type:: Clean-Voided MidstreamPerformed By: #### CBC, CMP wRFX A1C #### [facility] [address] [place] [address] USANitrite,UrineNegativeNormalNegativeThe [facility] Physician GroupComment on above:Order Comment: Name Collection Type:: Clean-Voided MidstreamPerformed By: #### CBC, CMP wRFX A1C #### [place] [address] USAOccult Blood,UrineNegativeNormalNegativeThe [facility] Physician GroupComment on above:Order Comment: Name Collection Type:: Clean- Voided MidstreamResult Comment: PERFORMED BY: [place] [address] PATHOLOGIST EVENT SPECIALIST PRODUCT DEMONSTRATOR SOFIE MONTEIRO M.D.Performed By: #### CBC, CMP wRFX A1C #### [place] [address] USAProtein,UrineNegativeNormalNegativeThe [facility] Physician GroupComment on above:Order Comment: Name Collection Type:: Clean-Voided MidstreamPerformed By: #### CBC, CMP wRFX A1C #### [place] [address] USASpecificy [place],Urine1.768Ljrdmr1.001-1.030The [facility] Physician GroupComment on above:Order Comment: Name Collection Type:: Clean- Voided MidstreamPerformed By: #### CBC, CMP wRFX A1C #### [place] [address] USAUrobilinogen,UrineNormalNormalNormalThe [facility] Physician GroupComment on above:Order Comment: Name Collection Type:: Clean- Voided MidstreamPerformed By: #### CBC, CMP wRFX A1C #### [place] [address] USAUrobilinogen Test strip (U) [Mass/Vol]Ordered By: Nishant Ceja on 96-76-4224Agsmlhlmceyd (U) [Mass/Vol]Normal mg/dLNormalTrumbull Regional Medical CenterpH of Urine by Test stripOrdered By: Nishant Ceja on 55-52-6509wZ (U)6.0 [pH]Normal5.0-9.0[facility] Medical CenterComment on above:Order Comment: Name Collection Type:: Clean-Voided MidstreamPerformed By: #### CBC, CMP wRFX A1C #### [facility] [address] [place] [address] HLB79rv 00-89-043472Hchrz to patient to see if he had completed his testing ordered by Dr. Vidal. Patient states he has not completed testing, Visually Impaired Teacher asked patient if he would like to do testing, patient agreed to have testing done. I advised patient that scheduling would be calling him to sched testing and they will transfer him down to us to sched his follow up with Dr. Vidal. Patient verbalized understanding and agreed with plan of care.[facility] HospitalX-ray reportOrdered By: Nikos Rivera on 57-18-4740Thuva reportFIRUNIVERSITY [facility]PITALS [facility] [address] [place] [id number] XRay Report Signed Patient: Rehan Trejo MR#: [id number] : 1965 Acct:[id number] Age/Sex: 59 / M ADM Date: 5 Loc: [facility] Room: Type: [facility] Attending Dr: Nishant Ceja DO [...] Rivera M.D. 12/22/2024 10:26 PM Dictation Location: [place] [address] Transcribed By: [facility] 12/22/242225 Dictated By: Nikos Rivera MD 12/22/242224 Signed By: 12/22/242225 [facility] Work Phone: XR shoulder RT min 2V*on 69-34-1657XR shoulder RT min 2V*[facility] [address] [place] [address] XRay Report Signed Patient: Rehan Trejo MR#: [id number] : 1965 Acct:[id number] Age/Sex: 59 / M ADM Date: 12/22/24 Loc: [facility] Room: Type: [facility] Attending Dr: Nishant Ceja DO [...] Rivera M.D. 12/22/2024 10:26 PM Dictation Location: [place] [address] Transcribed By: [facility] 12/22/242225 Dictated By: Nikos Rivera MD 12/22/242224 Signed By: 12/22/242225[facility] Physician GroupUS venous duplex LE RTon 49-36-2367BP venous duplex LE [facility] [place] [address] [place] [address] Ultrasound Report Signed Patient: Rehan Trejo MR#: [id number] : 1965 Acct:[id number] Age/Sex: 59 / M ADM Date: 12/03/24 Loc: Room: 5A2273-4 Type: ADM IN Attending Dr: Paco Jimenez MD Ordering Provider: Gloria Arrington APRN Date of Service: 12/10/24 US/US venous duplex LE RT: swelling, postop Copies to: MD Gloria Silav APRN RIGHT LOWER EXTREMITY VENOUS DUPLEX INDICATION: [...] Donnelly M.D. 12/12/2024 11:17 AM Dictation Location: [place] [address] Tech: Ana Rosa Esqueda Transcribed By: NORI 12/12/241116 Dictated By: Zaire Donnelly MD 12/12/241116 Signed By: 12/12/24 [facility] CenterTr[facility] Hospital Physician GroupAlanine aminotransferase [Enzymatic activity/volume] in Serum or PlasmaOrdered By: Paco Jimenez on 24-74-4580YUY [Catalytic activity/Vol]Alanine aminotransferase [Enzymatic activity/volume] in Serum or Plasma7[facility] Medical CenterALT [Catalytic activity/Vol]37 U/LNormal7[facility] CenterComment on above:Performed By: #### CBC, CMP wRFX A1C #### [facility] [address] [place] [address] USAAlbumin [Mass/volume] in Serum or Plasma by Bromocresol green (BCG) dye binding methoOrdered By: Paco Jimenez on 12-04-2024 Albumin BCG dye [Mass/Vol]Albumin [Mass/volume] in Serum or Plasma by Bromocresol green (BCG) dye binding methoLow3.5-5.7FWhite HospitalAlbumin BCG dye [Mass/Vol]3.2 g/dLLow3.5-5.7FWhite HospitalAlkaline phosphatase [Enzymatic activity/volume] in Serum or PlasmaOrdered By: Paco Jimenez on 60-88-5521RJJ [Catalytic activity/Vol]Alkaline phosphatase [Enzymatic activity/volume] in Serum or Vugzsg46-705WmzlketpeTrumbull Regional Medical CenterALP [Catalytic activity/Vol]92 U/UDmlypc08-941Yoyzgjekh22 Higgins StreetComment on above:Performed By: #### CBC, CMP wRFX A1C #### [place] [address] USAAspartate aminotransferase [Enzymatic activity/volume] in Serum or PlasmaOrdered By: Paco Jimenez on 72-37-1903HGA [Catalytic activity/Vol]Aspartate aminotransferase [Enzymatic activity/volume] in Serum or Ffncii29-59N[address] [place], [place] [address]AST [Catalytic activity/Vol]21 U/L Jaqpzz05-01Szhqgzxhf[address] [place], [place] [address]Comment on above:Performed By: #### CBC, CMP wRFX A1C #### [facility] [address] [place] [address] USABasophils Auto (Bld) [#/Vol]Ordered By: Paco Jimenez on 01-04-3623Xfldrupqg (Bld) [#/Vol]Automated basophil count0.0-0.2 [facility] Medical CenterBasophils [#/volume] in Blood by Automated countOrdered By: Paco Jimenez on 10-10-7783Foydzaoqc (Bld) [#/Vol]0.0 10*3/uLNormal0.0-0.2FWhite HospitalComment on above:Result Comment: PERFORMED BY: [place] [address] PATHOLOGIST EVENT SPECIALIST PRODUCT DEMONSTRATOR CHACORTA DE DIOS M.D.Performed By: #### CBC, CMP wRFX A1C #### [place] [address] USABasophils/100 WBC Auto (Bld)Ordered By: Paco Jimenez on 25-47-4054Kuavuclqi/100 WBC (Bld)Automated basophil %.[facility] Medical CenterBasophils/100 leukocytes in Blood by Automated count Ordered By: Paco Jimenez on 78-68-6489Buqlqwsoi/100 WBC (Bld)0.3 %Normal .[facility] Medical CenterComment on above:Performed By: #### CBC, CMP wRFX A1C #### [place] [address] USABilirubin.total [Mass/volume] in Serum or PlasmaOrdered By: Paco Jimenez on 65-13-7264Tpqcqgsxc [Mass/Vol]Bilirubin.total [Mass/volume] in Serum or Plasma0.3-1.0[facility] Bilirubin [Mass/Vol]0.7 mg/dLNormal0.3-1.0[facility] Comment on above:Performed By: #### CBC, CMP wRFX A1C #### [facility] [address] [place] [address] USACalcium [Mass/volume] in Serum or PlasmaOrdered By: Paco Jimenez on 02-17-9742Hegyfzi [Mass/Vol]Calcium [Mass/volume] in Serum or PlasmaLow8.6-10.3FWhite HospitalCalcium [Mass/Vol]7.8 mg/dLLow8.6-10.3FWhite HospitalComment on above:Performed By: #### CBC, CMP wRFX A1C #### [facility] [address] [place] [address] USACarbon dioxide, total [Moles/volume] in Serum or Plasma Ordered By: Paco Jimenez on 17-15-0534IM0 [Moles/Vol]Carbon dioxide, total [Moles/volume] in Serum or Tgziyg56.0-31.0[facility] Medical CenterCO2 [Moles/Vol]21.8 mmol/NUxcatd22.0-31.0[facility] Comment on above:Performed By: #### CBC, CMP wRFX A1C #### [facility] [address] [place] [address] USAChloride [Moles/volume] in Serum or PlasmaOrdered By: Paco Jimenez on 56-06-6136Omynwwkh [Moles/Vol]Chloride [Moles/volume] in Serum or Jodhhh14-252WzgtzdqapTrumbull Regional Medical CenterChloride [Moles/Vol]100 mmol/UBwvbzp03-799Ankpuadrh[address] [place], [place] [address]Comment on above:Performed By: #### CBC, CMP wRFX A1C #### [facility] [address] [place] [address] USAComplete Blood Count Auto Diffon 02-70-3373Trni Corpuscular HGB Conc34.6 g/sSUypvvr07.5-35.6[facility] Physician GroupComment on above:Performed By: #### CBC, CMP wRFX A1C #### [facility] [address] [place] [address] USANRBC%0.1 /100{WBC}Normal0-0.5[facility] Comment on above:Performed By: #### CBC, CMP wRFX A1C #### [facility] [address] [place] [address] USAComprehensive Metabolic Panelon 70-38-4259Maejdze [Mass/Vol]3.2 g/dLLow3.5-5.7[facility] Physician [facility] CenterComment on above: Performed By: #### CBC, CMP wRFX A1C #### [facility] [address] [place] [address] USACreatinine Clr Calc Kklnwbwh267.15NormalThe [facility] Hospital Physician GroupComment on above:Performed By: #### CBC, CMP wRFX A1C #### [facility] [address] [place] [address] USAGFR/1.73 sq M.predicted MDRD (S/P/Bld) [Vol rate/Area] mL/min/{1.73_m2}NormalThe [facility] Physician [facility] CenterComment on above:Performed By: #### CBC, CMP wRFX A1C #### [place] [address] USACreatinine [Mass/volume] in Serum or PlasmaOrdered By: Paco Jimenez on 18-00-5041Oddratgyfd [Mass/Vol]Creatinine [Mass/volume] in Serum or Plasma0.70-1.30[facility] CenterCreatinine [Mass/Vol]0.93 mg/dLNormal0.70-1.30[facility] CenterComment on above:Performed By: #### CBC, CMP wRFX A1C #### [facility] [address] [place] [address] USAEosinophils Auto (Bld) [#/Vol]Ordered By: Paco Jimenez on 27-70-5329Ukjnqubhqmc (Bld) [#/Vol]Automated eosinophil count 0.0-0.45[facility] Medical CenterEosinophils [#/volume] in Blood by Automated countOrdered By: Paco Jimenez on 73-91-4870Dmkxkgysuck (Bld) [#/Vol]0.0 10*3/uLNormal0.0-0.45[facility] CenterComment on above:Performed By: #### CBC, CMP wRFX A1C #### [facility] [address] [place] [address] USAEosinophils/100 WBC Auto (Bld)Ordered By: Paco Jimenez on 86-22-8311Yflveruitja/100 WBC (Bld)Automated eosinophil %. [facility] Medical CenterEosinophils/100 leukocytes in Blood by Automated countOrdered By: Paco Jimenez on 79-47-4500Starqibihux/100 WBC (Bld)0.3 %Normal.[facility] CenterComment on above:Performed By: #### CBC, CMP wRFX A1C #### [facility] [address] [place] [address] USAErythrocyte distribution width Auto (RBC) [Ratio]Ordered By: Paco Jimenez on 72-91-6523Wwmvrcdvoki distribution width (RBC) [Ratio]Erythrocyte distribution width [Ratio] by Automated count12.0-14.8 [facility] Medical CenterErythrocyte distribution width [Ratio] by Automated countOrdered By: Paco Jimenez on 82-71-1142Lvaqndaxdbd distribution width (RBC) [Ratio]13.7 %Rhrdim49.0-14.8[facility] CenterComment on above:Performed By: #### CBC, CMP wRFX A1C #### [facility] [address] [place] [address] USAErythrocytes [#/volume] in Blood by Automated countOrdered By: Paco Jimenez on 61-69-6565NHK (Bld) [#/Vol]3.31 10*6/uLLow3.90-5.60 [facility] CenterComment on above:Performed By: #### CBC, CMP wRFX A1C #### [facility] [address] [place] [address] USAGlobulin Calc (S) [Mass/Vol]Ordered By: Paco Jimenez on 26-42-0319Hruunioa (S) [Mass/Vol]Serum globulin measurement by calculation (mass/volume)[facility] CenterGlucose [Mass/volume] in Serum or PlasmaOrdered By: Paco Jimenez on 18-94-9805Momcnwf [Mass/Vol]Glucose [Mass/volume] in Serum or Bhkhbo21-509VnelylsciTrumbull Regional Medical CenterComment on above:ADA recommended reference rangeRandom Glucose Reference Range is dependent on time and content of last meal. Glucose of more than 200 mg/dL in a nonstressed, ambulatory subject supports the diagnosisof Diabetes Mellitus.Glucose [Mass/Vol]95 mg/nMLnryzh79-151HvshaanemTrumbull Regional Medical CenterComment on above:ADA recommended reference rangeRandom Glucose Reference [...] By: #### CBC, CMP wRFX A1C #### [facility] [address] [place] [address] USAHematocrit Auto (Bld) [Volume fraction]Ordered By: Paco Jimenez on 76-59-5442Ygeztnjyjg (Bld) [Volume fraction]Hematocrit [Volume Fraction] of Blood by Automated ubyjkWfi04.8-50.0[facility] Medical CenterHematocrit [Volume Fraction] of Blood by Automated countOrdered By: Paco Jimenez on 51-31-3435Tfkvgjoxhz (Bld) [Volume fraction]32.8 % Low38.8-50.0[facility] CenterComment on above:Performed By: #### CBC, CMP wRFX A1C #### [facility] [address] [place] [address] USAHemoglobin [Mass/volume] in BloodOrdered By: Paco Jimenez on 02-85-9766Cucxrlftmm (Bld) [Mass/Vol]Hemoglobin [Mass/volume] in AgpirUis20.0-17.0[facility] Medical CenterHemoglobin (Bld) [Mass/Vol] 11.3 g/dLLow13.0-17.0[facility] CenterComment on above:Performed By: #### CBC, CMP wRFX A1C #### [facility] [address] [place] [address] USALeukocytes [#/volume] corrected for nucleated erythrocytes in Blood by Automated counOrdered By: Paco Jimenez on 51-92-7262NXP corrected for nucl RBC Auto (Bld) [#/Vol]Leukocytes [#/volume] corrected for nucleated erythrocytes in Blood by Automated coun4.1-10.5FWhite HospitalWBC corrected for nucl RBC Auto (Bld) [#/Vol]9.1 10*3/uL4.1-10.5 [facility] CenterLeukocytes [#/volume] in Blood by Automated countOrdered By: Paco Jimenez on 69-29-0666JPF (Bld) [#/Vol]9.1 10*3/uL Normal4.1-10.5FWhite HospitalComment on above:Performed By: #### CBC, CMP wRFX A1C #### [facility] [address] [place] [address] USALymphocytes Auto (Bld) [#/Vol]Ordered By: Paco Jimenez on 79-29-7121Xyvcoykjvqi (Bld) [#/Vol]Lymphocytes [#/volume] in Blood by Automated count1.00-4.8[facility] Medical CenterLymphocytes [#/volume] in Blood by Automated countOrdered By: Paco Jimenez on 15-81-5519Wseqcuekkiq (Bld) [#/Vol]1.9 10*3/uLNormal1.00-4.8[facility] CenterComment on above:Performed By: #### CBC, CMP wRFX A1C #### [facility] [address] [place] [address] USALymphocytes/100 WBC Auto (Bld)Ordered By: Paco Jimenez on 67-67-6383Thruzacrdla/100 WBC (Bld)Lymphocytes/100 leukocytes in Blood by Automated count.[facility] Medical CenterLymphocytes/100 leukocytes in Blood by Automated countOrdered By: Paco Jimenez on 99-01-6740Tqoknowlwer/100 WBC (Bld)20.4 %Normal.[facility] CenterComment on above:Performed By: #### CBC, CMP wRFX A1C #### [facility] [address] [place] [address] [facility] Auto (RBC) [Entitic mass]Ordered By: Paco Jimenez on 67-41-2164UTB (RBC) [Entitic mass]MCH [Entitic mass] by Automated count27.5-35.2FBucyrus [facility] Hospital [Entitic mass] by Automated countOrdered By: Paco Jimenez on 16-96-5853VXD (RBC) [Entitic mass]34.3 pdDmtlns89.5-35.2FWhite HospitalComment on above:Performed By: #### CBC, CMP wRFX A1C #### [facility] [address] [place] [address] [facility] Auto (RBC) [Mass/Vol]Ordered By: Paco Jimenez on 98-62-9566JQJW (RBC) [Mass/Vol]MCHC [Mass/volume] by Automated count 32.5-35.6FCorey HospitalHC (RBC) [Mass/Vol]34.6 g/dL 32.5-35.6FCorey HospitalV Auto (RBC) [Entitic vol]Ordered By: Paco Jimenez on 67-86-2522KSI (RBC) [Entitic vol]MCV [Entitic volume] by Automated count83.5-101[facility] HospitalV [Entitic volume] by Automated countOrdered By: Paco Jimenez on 76-84-6999SIQ (RBC) [Entitic vol]99.2 eQKqrhdu33.5-101[facility] CenterComment on above:Performed By: #### CBC, CMP wRFX A1C #### [facility] [address] [place] [address] USAMonocytes Auto (Bld) [#/Vol]Ordered By: Paco Jimenez on 71-64-6455Zeirrjlkg (Bld) [#/Vol]Automated blood monocyte count High0.0-0.8[facility] Medical CenterMonocytes [#/volume] in Blood by Automated countOrdered By: Paco Jimenez on 50-56-7862Hycgqjeqw (Bld) [#/Vol]1.1 10*3/uLHigh0.0-0.8Tr[facility]ull Regional Medical CenterComment on above: Performed By: #### CBC, CMP wRFX A1C #### [facility] [address] [place] [address] USAMonocytes/100 WBC Auto (Bld)Ordered By: Paco Jimenez on 27-32-6468Xdbenwlem/100 WBC (Bld)Automated monocyte %.[facility] CenterMonocytes/100 leukocytes in Blood by Automated count Ordered By: Paco Jimenez on 33-19-3823Axvxbobyl/100 WBC (Bld)11.8 % Normal.[facility] Medical CenterComment on above:Performed By: #### CBC, CMP wRFX A1C #### [place] [address] USANeutrophils Auto (Bld) [#/Vol]Ordered By: Paco Jimenez on 56-54-0324Koulfvukosf (Bld) [#/Vol]Neutrophils [#/volume] in Blood by Automated count1.8-7.7FWhite HospitalNeutrophils [#/volume] in Blood by Automated countOrdered By: Paco Jimenez on 31-96-1964Ddbzuoamdnf (Bld) [#/Vol]6.1 10*3/uLNormal1.8-7.7FWhite HospitalComment on above:Performed By: #### CBC, CMP wRFX A1C #### [facility] [address] [place] [address] USANeutrophils/100 WBC Auto (Bld)Ordered By: Paco Jimenez on 41-01-8480Cxahdktglmm/100 WBC (Bld)Automated neutrophil %. [facility] CenterNeutrophils/100 leukocytes in Blood by Automated countOrdered By: Paco Jimenez on 98-33-8606Oxrwrfipugo/100 WBC (Bld)67.2 %Normal.[facility] Medical CenterComment on above:Performed By: #### CBC, CMP wRFX A1C #### [facility] [address] [place] [address] USANo Panel InformationOrdered By: Paco Jimenez on 78-13-0564Hljtkxsbx GFR (CKD-EPI)> 60.0 mL/MinTrumbull Regional Medical Center Pharmacy Creatinine Clearance (Fges377.15[facility] Nucleated erythrocytes [Presence] in Blood by Automated countOrdered By: Paco Jimenez on 48-24-2320Ixqalraze RBC Auto Ql (Bld)Nucleated erythrocytes [Presence] in Blood by Automated count0-0.5FWhite HospitalNucleated RBC Auto Ql (Bld)0.1 /100{WBC}0-0.5FWhite HospitalPlatelet mean volume Auto (Bld) [Entitic vol]Ordered By: Paco Jimenez on 21-97-9757Zhufbklv mean volume (Bld) [Entitic vol]Platelet mean volume [Entitic volume] in Blood by Automated count6.6-10.1FWhite HospitalPlatelet mean volume [Entitic volume] in Blood by Automated count Ordered By: Paco Jimenez on 79-82-6943Bxrnahem mean volume (Bld) [Entitic vol]7.7 fLNormal6.6-10.1FWhite HospitalComment on above:Performed By: #### CBC, CMP wRFX A1C #### [facility] [address] [place] [address] USAPlatelets Auto (Bld) [#/Vol]Ordered By: Paco Jimenez on 44-59-8015Mchxbcdsb (Bld) [#/Vol]Platelets [#/volume] in Blood by Automated -922FypwpqfvqTrumbull Regional Medical CenterPlatelets [#/volume] in Blood by Automated countOrdered By: Paco Jimenez on 64-63-2868Epikmipkt (Bld) [#/Vol]179 10*3/cLWucgos674-265SrejtqhlqTrumbull Regional Medical CenterComment on above:Performed By: #### CBC, CMP wRFX A1C #### [facility] [address] [place] [address] USAPotassium [Moles/volume] in Serum or PlasmaOrdered By: Paco Jimenez on 76-10-0667Zzzojmeop [Moles/Vol]Potassium [Moles/volume] in Serum or Plasma3.5-5.1FWhite HospitalPotassium [Moles/Vol] 3.8 mmol/LNormal3.5-5.1FWhite HospitalComment on above: Performed By: #### CBC, CMP wRFX A1C #### [facility] [address] [place] [address] USAPrealbumin [Mass/volume] in Serum or PlasmaOrdered By: Paco Jimenez on 11-58-7838Atgajtfoqy [Mass/Vol]Prealbumin [Mass/volume] in Serum or XizwqlSdf57.0-34.0[facility] Medical CenterPrealbumin [Mass/Vol]13.4 mg/dLLow17.0-34.0[facility] Medical CenterComment on above:Result Comment: PERFORMED BY: [place] [id number] PATHOLOGIST EVENT SPECIALIST PRODUCT DEMONSTRATOR CHACORTA DE DIOS M.D.Performed By: #### CBC, CMP wRFX A1C #### [address] [address] USAProtein [Mass/volume] in Serum or PlasmaOrdered By: Paco Jimenez on 25-77-4514Wijizyc [Mass/Vol]Protein [Mass/volume] in Serum or PlasmaLow6.4-8.9[facility] Medical CenterProtein [Mass/Vol]5.1 g/dLLow6.4-8.9[facility] Medical CenterComment on above:Performed By: #### CBC, CMP wRFX A1C #### [facility] [address] [place] [address] USARBC Auto (Bld) [#/Vol]Ordered By: Paco Jimenez on 15-19-7621YOH (Bld) [#/Vol]Erythrocytes [#/volume] in Blood by Automated count Low3.90-5.60OhioHealth Van Wert Hospitalerum globulin measurement by calculation (mass/volume)Ordered By: Paco Jimenez on 43-74-5332Yqdnafmy (S) [Mass/Vol]1.9 g/dLNormalTrumbull Regional Medical CenterComment on above: Performed By: #### CBC, CMP wRFX A1C #### [facility] [address] [place] [address] USASerum or plasma albumin/globulin mass ratioOrdered By: Paco Jimenez on 89-65-6177Hpzlkug/Globulin [Mass ratio]Serum or plasma albumin/globulin mass ratioTrumbull Regional Medical CenterAlbumin/Globulin [Mass ratio]1.7 {ratio}NormalTrumbull Regional Medical CenterComment on above: Performed By: #### CBC, CMP wRFX A1C #### [facility] [address] [place] [address] USASerum or plasma anion gap determinationOrdered By: Paco Jimenez on 73-54-1910Jyjub gap [Moles/Vol]Serum or plasma anion gap determination6.0-15.0[facility] Medical CenterAnion gap [Moles/Vol]13.0 mmol/LNormal6.0-15.0[facility] Medical CenterComment on above:Performed By: #### CBC, CMP wRFX A1C #### [facility] [address] [place] [address] USASodium [Moles/volume] in Serum or PlasmaOrdered By: Paco Jimenez on 72-57-8397Swakgd [Moles/Vol]Sodium [Moles/volume] in Serum or ExrolgDlo616-365DqnhvqnjfOhioHealth Van Wert Hospitalodium [Moles/Vol]131 mmol/OGzs148-962NwfjhbqhkTrumbull Regional Medical CenterComment on above:Performed By: #### CBC, CMP wRFX A1C #### [facility] [address] [place] [id number] USAUrea nitrogen [Mass/volume] in Serum or PlasmaOrdered By: Paco Jimenez on 71-88-4924Emyu nitrogen [Mass/Vol]Urea nitrogen [Mass/volume] in Serum or Plasma02-06Tr[facility] Medical CenterUrea nitrogen [Mass/Vol]13 mg/dLNormal02-06Tr[facility] Medical CenterComment on above:Performed By: #### CBC, CMP wRFX A1C #### [facility] [address] [place] [address] USAWBC Auto (Bld) [#/Vol]Ordered By: Paco Jimenez on 55-61-5133VOP (Bld) [#/Vol]Leukocytes [#/volume] in Blood by Automated count 4.1-10.5FWhite HospitalBasic Metabolic Panelon 12-03-2024 Creatinine Clr Calc Wokjrjmt927.38NormAdventHealth Wauchula Physician GroupComment on above:Result Comment: PERFORMED BY: [place] [address] PATHOLOGIST EVENT SPECIALIST PRODUCT DEMONSTRATOR CHACORTA DE DIOS M.D.Performed By: #### CBC, CMP wRFX A1C #### [facility] [address] [place] [id number] USAGFR/1.73 sq M.predicted MDRD (S/P/Bld) [Vol rate/Area] mL/min/{1.73_m2}NormalThe [facility] Hospital Physician GroupComment on above:Performed By: #### CBC, CMP wRFX A1C #### [facility] [address] [place] [id number] USABasophils Auto (Bld) [#/Vol]Ordered By: Nishant Ceja on 01-24-5560Glsncssgf (Bld) [#/Vol]Automated basophil count0.0-0.2FWhite HospitalBasophils [#/volume] in Blood by Automated countOrdered By: Nishant Ceja on 92-03-8752Hmaxuwejf (Bld) [#/Vol]0.1 10*3/uLNormal0.0-0.2 [facility] Medical CenterComment on above:Result Comment: PERFORMED BY: [facility] [address] [place] [address] PATHOLOGIST EVENT SPECIALIST PRODUCT DEMONSTRATOR CHACORTA DE DIOS M.D.Performed By: #### CBC, CMP wRFX A1C #### [facility] [address] [place] [address] USABasophils/100 WBC Auto (Bld)Ordered By: Nishant Ceja on 75-79-6633Jtszrvmrh/100 WBC (Bld)Automated basophil %.[facility] Medical CenterBasophils/100 leukocytes in Blood by Automated countOrdered By: Nishant Ceja on 09-78-8936Gcukdkuyo/100 WBC (Bld)0.7 %Normal.[facility] Medical CenterComment on above:Performed By: #### CBC, CMP wRFX A1C #### [facility] [address] [place] [address] USACalcium [Mass/volume] in Serum or PlasmaOrdered By: Nishant Ceja on 88-64-1586Mrldqrb [Mass/Vol]Calcium [Mass/volume] in Serum or Plasma Low8.6-10.3FWhite HospitalCalcium [Mass/Vol]8.4 mg/dLLow 8.6-10.3FWhite HospitalComment on above:Performed By: #### CBC, CMP wRFX A1C #### [facility] [address] [place] [address] USACarbon dioxide, total [Moles/volume] in Serum or Plasma Ordered By: Nishant Ceja on 56-42-5679UM6 [Moles/Vol]Carbon dioxide, total [Moles/volume] in Serum or EdfxqnAnp00.0-31.0[facility] CO2 [Moles/Vol]20.5 mmol/LLow21.0-31.0[facility] Medical CenterComment on above:Performed By: #### CBC, CMP wRFX A1C #### [facility] [address] [place] [address] USAChloride [Moles/volume] in Serum or PlasmaOrdered By: Nishant Ceja on 93-54-4235Pwtauhtj [Moles/Vol]Chloride [Moles/volume] in Serum or Qmnaob27-572EgkykfrfkTrumbull Regional Medical CenterChloride [Moles/Vol]99 mmol/L Nmpvaf53-198RsytymxusTrumbull Regional Medical CenterComment on above:Performed By: #### CBC, CMP wRFX A1C #### [facility] [address] [place] [address] USAComplete Blood Count Auto Diffon 65-04-0598Tfai Corpuscular HGB Conc34.0 g/jXBioknd98.5-35.6The [facility] Physician GroupComment on above:Performed By: #### CBC, CMP wRFX A1C #### [facility] [address] [place] [address] USANRBC%0.1 /100{WBC}Normal0-0.5[facility] Comment on above:Performed By: #### CBC, CMP wRFX A1C #### [facility] [address] [place] [address] USACreatinine [Mass/volume] in Serum or PlasmaOrdered By: Nishant Ceja on 02-10-6727Kpuchibvcl [Mass/Vol]Creatinine [Mass/volume] in Serum or Plasma0.70-1.30[facility] Medical CenterCreatinine [Mass/Vol] 0.82 mg/dLNormal0.70-1.30[facility] Medical CenterComment on above: Performed By: #### CBC, CMP wRFX A1C #### [facility] [address] [place] [address] USAEosinophils Auto (Bld) [#/Vol]Ordered By: Nishant Ceja on 99-52-9300Mpdkqkdxwuf (Bld) [#/Vol]Automated eosinophil count0.0-0.45[facility] Medical CenterEosinophils [#/volume] in Blood by Automated countOrdered By: Nishant Ceja on 43-32-3283Mzkvufwelqh (Bld) [#/Vol]0.0 10*3/uLNormal 0.0-0.45[facility] Medical CenterComment on above:Performed By: #### CBC, CMP wRFX A1C #### [facility] [address] [place] [address] USAEosinophils/100 WBC Auto (Bld)Ordered By: Nishant Ceja on 68-19-8938Fukyohacezb/100 WBC (Bld)Automated eosinophil %.[facility] Medical CenterEosinophils/100 leukocytes in Blood by Automated countOrdered By: Nishant Ceja on 01-03-2831Takulpyiqfy/100 WBC (Bld)0.0 %Normal.[facility] Medical CenterComment on above:Performed By: #### CBC, CMP wRFX A1C #### [place] [address] USAErythrocyte distribution width Auto (RBC) [Ratio]Ordered By: Nishant Ceja on 24-87-4469Xbiryfliwif distribution width (RBC) [Ratio] Erythrocyte distribution width [Ratio] by Automated count12.0-14.8Tr[facility] Medical CenterErythrocyte distribution width [Ratio] by Automated count Ordered By: Nishant Ceja on 83-55-0312Ffgsjfixkap distribution width (RBC) [Ratio]14.1 %Zajksh60.0-14.8[facility] Medical CenterComment on above: Performed By: #### CBC, CMP wRFX A1C #### [facility] [address] [place] [id number] USAErythrocytes [#/volume] in Blood by Automated countOrdered By: Nishant Ceja on 49-53-9000EPD (Bld) [#/Vol]3.72 10*6/uLLow3.90-5.60 [facility] CenterComment on above:Performed By: #### CBC, CMP wRFX A1C #### [facility] [address] [place], [place] [address] USAGlucose [Mass/volume] in Serum or PlasmaOrdered By: Nishant Ceja on 87-00-9108Kodiudc [Mass/Vol]Glucose [Mass/volume] in Serum or Plasma Vgjg84-187LjhyrskmpTrumbull Regional Medical CenterComment on above:ADA recommended reference rangeRandom Glucose Reference Range is dependent on time and content of last meal. Glucose of more than 200 mg/dL in a nonstressed, ambulatory subject supports the diagnosisof Diabetes Mellitus.Glucose [Mass/Vol]102 mg/dL Zpes45-401QobattqqsTrumbull Regional Medical CenterComment on above:ADA recommended reference rangeRandom Glucose Reference [...] By: #### CBC, CMP wRFX A1C #### [facility] [address] [place] [id number] USAHematocrit Auto (Bld) [Volume fraction]Ordered By: Nishant Ceja on 02-81-4209Vuoutelddv (Bld) [Volume fraction]Hematocrit [Volume Fraction] of Blood by Automated cxifvFtg91.8-50.0[facility] Medical CenterHematocrit [Volume Fraction] of Blood by Automated countOrdered By: Nishant Ceja on 22-83-5249Rqvntvvray (Bld) [Volume fraction]36.7 %Low38.8-50.0 [facility] Medical CenterComment on above:Performed By: #### CBC, CMP wRFX A1C #### [facility] [address] [place] [id number] USAHemoglobin [Mass/volume] in BloodOrdered By: Nishant Ceja on 54-76-4936Ewjwfbsjra (Bld) [Mass/Vol]Hemoglobin [Mass/volume] in BloodLow 13.0-17.0[facility] Medical CenterHemoglobin (Bld) [Mass/Vol]12.5 g/dL Low13.0-17.0[facility] Medical CenterComment on above:Performed By: #### CBC, CMP wRFX A1C #### [facility] [address] [place] [id number] USALeukocytes [#/volume] corrected for nucleated erythrocytes in Blood by Automated counOrdered By: Nishant Ceja on 99-57-4640CGY corrected for nucl RBC Auto (Bld) [#/Vol]Leukocytes [#/volume] corrected for nucleated erythrocytes in Blood by Automated counHigh4.1-10.5FWhite HospitalWBC corrected for nucl RBC Auto (Bld) [#/Vol]12.4 10*3/uLHigh4.1-10.5 [facility] CenterLeukocytes [#/volume] in Blood by Automated countOrdered By: Nishant Ceja on 41-32-5435TPG (Bld) [#/Vol]12.4 10*3/uLHigh 4.1-10.5FWhite HospitalComment on above:Performed By: #### CBC, CMP wRFX A1C #### [facility] [address] [place] [id number] USALymphocytes Auto (Bld) [#/Vol]Ordered By: Nishant Ceja on 37-73-0903Owrpmidqexo (Bld) [#/Vol]Lymphocytes [#/volume] in Blood by Automated count1.00-4.8[facility] Medical CenterLymphocytes [#/volume] in Blood by Automated countOrdered By: Nishant Ceja on 50-63-5589Auubhlrjhnx (Bld) [#/Vol]1.8 10*3/uLNormal1.00-4.8[facility] CenterComment on above:Performed By: #### CBC, CMP wRFX A1C #### [facility] [address] [place] [id number] USALymphocytes/100 WBC Auto (Bld)Ordered By: Nishant Ceja on 00-73-6480Rjegwqerhja/100 WBC (Bld)Lymphocytes/100 leukocytes in Blood by Automated count.[facility] Medical CenterLymphocytes/100 leukocytes in Blood by Automated countOrdered By: Nishant Ceja on 11-05-6972Fywpjtqmpfl/100 WBC (Bld)14.2 %Normal.[facility] Medical CenterComment on above: Performed By: #### CBC, CMP wRFX A1C #### [facility] [address] [place] [id number] [facility] Auto (RBC) [Entitic mass]Ordered By: Nishant Ceja on 02-54-2815OZG (RBC) [Entitic mass]MCH [Entitic mass] by Automated count27.5-35.2 [facility] [Entitic mass] by Automated countOrdered By: Nishant Ceja on 15-70-7119KBU (RBC) [Entitic mass]33.5 dlQwtxcl15.5-35.2 [facility] CenterComment on above:Performed By: #### CBC, CMP wRFX A1C #### [facility] [address] [place] [address] [facility] Auto (RBC) [Mass/Vol]Ordered By: Nishant Ceja on 04-47-8970QZUN (RBC) [Mass/Vol]MCHC [Mass/volume] by Automated count32.5-35.6 [facility] HospitalHC (RBC) [Mass/Vol]34.0 g/dL32.5-35.6 [facility] Auto (RBC) [Entitic vol]Ordered By: Nishant Ceja on 06-46-2351GDL (RBC) [Entitic vol]MCV [Entitic volume] by Automated count83.5-101[facility] HospitalV [Entitic volume] by Automated countOrdered By: Nishant Ceja on 80-50-2161BQQ (RBC) [Entitic vol]98.5 fLNormal 83.5-101[facility] CenterComment on above:Performed By: #### CBC, CMP wRFX A1C #### [facility] [address] [place] [id number] USAMonocytes Auto (Bld) [#/Vol]Ordered By: Nishant Ceja on 62-11-3506Cnjsrzzbf (Bld) [#/Vol]Automated blood monocyte countHigh0.0-0.8 [facility] CenterMonocytes [#/volume] in Blood by Automated countOrdered By: Nishant Ceja on 12-57-2019Qveotkcjg (Bld) [#/Vol]1.2 10*3/uL High0.0-0.8[facility] CenterComment on above:Performed By: #### CBC, CMP wRFX A1C #### [facility] [address] [place] [id number] USAMonocytes/100 WBC Auto (Bld)Ordered By: Nishant Ceja on 79-52-9959Zqlkwcuaw/100 WBC (Bld)Automated monocyte %.[facility] CenterMonocytes/100 leukocytes in Blood by Automated countOrdered By: Nishant Ceja on 10-38-2262Jfaftbhjq/100 WBC (Bld)9.5 %Normal.[facility] Medical CenterComment on above:Performed By: #### CBC, CMP wRFX A1C #### [place] [id number] USANeutrophils Auto (Bld) [#/Vol]Ordered By: Nishant Ceja on 84-17-1017Htjkxqqyplf (Bld) [#/Vol]Neutrophils [#/volume] in Blood by Automated countHigh1.8-7.7FWhite HospitalNeutrophils [#/volume] in Blood by Automated countOrdered By: Nsihant Ceja on 49-66-2807Eaqdnnfmkea (Bld) [#/Vol]9.4 10*3/uLHigh1.8-7.7FWhite HospitalComment on above: Performed By: #### CBC, CMP wRFX A1C #### [facility] [address] [place] [address] USANeutrophils/100 WBC Auto (Bld)Ordered By: Nishant Ceja on 71-98-0324Pwpzyyygknj/100 WBC (Bld)Automated neutrophil %.[facility] CenterNeutrophils/100 leukocytes in Blood by Automated countOrdered By: Nishant Ceja on 58-87-9756Xeqgbikmkiz/100 WBC (Bld)75.6 %Normal.[facility] Medical CenterComment on above:Performed By: #### CBC, CMP wRFX A1C #### [facility] [address] [place] [address] USANo Panel InformationOrdered By: Nishant Ceja on 33-82-9691Osohtptvp GFR (CKD-EPI)> 60.0 mL/MinTrumbull Regional Medical Center Pharmacy Creatinine Clearance (Jiwu339.38[facility] Nucleated erythrocytes [Presence] in Blood by Automated countOrdered By: Nishant Ceja on 69-99-8949Hfueofkpp RBC Auto Ql (Bld)Nucleated erythrocytes [Presence] in Blood by Automated count0-0.5FWhite HospitalNucleated RBC Auto Ql (Bld)0.1 /100{WBC}0-0.5FWhite HospitalPlatelet mean volume Auto (Bld) [Entitic vol]Ordered By: Nishant Ceja on 91-34-5802Lonlngwi mean volume (Bld) [Entitic vol]Platelet mean volume [Entitic volume] in Blood by Automated count6.6-10.1FWhite HospitalPlatelet mean volume [Entitic volume] in Blood by Automated countOrdered By: Nishant Ceja on 11-16-1620Ctnmvhcd mean volume (Bld) [Entitic vol]8.6 fLNormal6.6-10.1FWhite HospitalComment on above:Performed By: #### CBC, CMP wRFX A1C #### [facility] [address] [place] [address] USAPlatelets Auto (Bld) [#/Vol]Ordered By: Nishant Ceja on 85-73-6104Ndmulcsng (Bld) [#/Vol]Platelets [#/volume] in Blood by Automated pbmio017-320W[address] [place], [place] [address]Platelets [#/volume] in Blood by Automated countOrdered By: Nishant Ceja on 73-60-3971Hylxvwaxd (Bld) [#/Vol]209 10*3/hIOrdrbu978-825Xtpfcdwrd[address] [place], [place] [address]Comment on above:Performed By: #### CBC, CMP wRFX A1C #### [facility] [address] [place] [id number] USAPotassium [Moles/volume] in Serum or PlasmaOrdered By: Nishant Ceja on 37-92-6502Qcwkppsvx [Moles/Vol]Potassium [Moles/volume] in Serum or Plasma3.5-5.1FWhite HospitalPotassium [Moles/Vol]4.1 mmol/LNormal3.5-5.1FWhite HospitalComment on above:Performed By: #### CBC, CMP wRFX A1C #### [facility] [address] [place] [address] USARBC Auto (Bld) [#/Vol]Ordered By: Nishant Ceja on 54-68-6672RAD (Bld) [#/Vol]Erythrocytes [#/volume] in Blood by Automated count Low3.90-5.60OhioHealth Van Wert Hospitalerum or plasma anion gap determinationOrdered By: Nishant Ceja on 42-70-6821Xfkcd gap [Moles/Vol]Serum or plasma anion gap determination6.0-15.0[facility] CenterAnion gap [Moles/Vol]13.6 mmol/LNormal6.0-15.0[facility] CenterComment on above:Performed By: #### CBC, CMP wRFX A1C #### [facility] [address] [place] [address] USASodium [Moles/volume] in Serum or PlasmaOrdered By: Nishant Ceja on 32-01-3572Iewpgl [Moles/Vol]Sodium [Moles/volume] in Serum or Plasma Kni420-096EfofzcqznOhioHealth Van Wert Hospitalodium [Moles/Vol]129 mmol/LLow 136-145[facility] CenterComment on above:Performed By: #### CBC, CMP wRFX A1C #### [facility] [address] [place] [address] USAUrea nitrogen [Mass/volume] in Serum or PlasmaOrdered By: Nishant Ceja on 32-73-9958Rzhq nitrogen [Mass/Vol]Urea nitrogen [Mass/volume] in Serum or Plasma02-06[facility] Medical CenterUrea nitrogen [Mass/Vol] 12 mg/dLNormal02-06[facility] CenterComment on above:Performed By: #### CBC, CMP wRFX A1C #### [place] [address] USAWBC Auto (Bld) [#/Vol]Ordered By: Nishant Ceja on 12-01-8956TBX (Bld) [#/Vol]Leukocytes [#/volume] in Blood by Automated countHigh 4.1-10.5FWhite HospitalABO/Rh Retypeon 31-72-3101KDE/RH Recheck ResultPositiveNormalThe [facility] Hospital Physician GroupComment on above:Result Comment: PERFORMED BY: [place] [address] PATHOLOGIST EVENT SPECIALIST PRODUCT DEMONSTRATOR CHACORTA DE DIOS M.D.Basic Metabolic Panelon 17-19-6379Jaijb gap [Moles/Vol]12.5 mmol/LNormal6.0-15.0[facility] Physician GroupComment on above:Performed By: #### BMP, PT, MG, PTT, CBC #### [place] [address] USACalcium [Mass/Vol]8.6 mg/dLNormal8.6-10.3The [facility] Physician GroupComment on above:Performed By: #### BMP, PT, MG, PTT, CBC #### [place] [address] USAChloride [Moles/Vol]99 mmol/PDhmxek32-654Iug [facility] Physician GroupComment on above:Performed By: #### BMP, PT, MG, PTT, CBC #### [place] [address] USACO2 [Moles/Vol]21.5 mmol/CVwxgkr37.0-31.0[facility] Physician GroupComment on above:Performed By: #### BMP, PT, MG, PTT, CBC #### [place] [address] USACreatinine [Mass/Vol]0.78 mg/dLNormal0.70-1.30[facility] Physician GroupComment on above:Performed By: #### BMP, PT, MG, PTT, CBC #### [place] [address] USACreatinine Clr Calc Jfgrsbcf108.55NormalThe [facility] Hospital Physician GroupComment on above:Performed By: #### BMP, PT, MG, PTT, CBC #### [facility] [address] [place] [address] USAGFR/1.73 sq M.predicted MDRD (S/P/Bld) [Vol rate/Area] mL/min/{1.73_m2}NormalThe [facility] Physician GroupComment on above:Performed By: #### BMP, PT, MG, PTT, CBC #### [facility] [address] [place] [address] USAGlucose [Mass/Vol]89 mg/mZCefazj04-407Ahp [facility] Physician GroupComment on above:Result Comment: Random Glucose Reference Range is dependent on time and content of last meal. Glucose of more than 200 mg/dL in a nonstressed, ambulatory subject supports the diagnosis of Diabetes Mellitus. ADA recommended reference rangePerformed By: #### BMP, PT, MG, PTT, CBC #### [facility] [address] [place] [address] USAPotassium [Moles/Vol]4.0 mmol/LNormal3.5-5.1The [facility] Physician GroupComment on above:Performed By: #### BMP, PT, MG, PTT, CBC #### [facility] [address] [place] [address] USASodium [Moles/Vol]129 mmol/IJyf704-147Qiy [facility] Physician GroupComment on above:Performed By: #### BMP, PT, MG, PTT, CBC #### [facility] [address] [place] [address] USAUrea nitrogen [Mass/Vol]14 mg/dLNormal7-25The [facility] Physician GroupComment on above:Performed By: #### BMP, PT, MG, PTT, CBC #### [facility] [address] [place] [address] USAComplete Blood Count Auto Diffon 91-94-4145Dcenlgodo (Bld) [#/Vol]0.1 10*3/uLNormal0.0-0.2[facility] Physician GroupComment on above: Result Comment: PERFORMED BY: [place] [address] PATHOLOGIST EVENT SPECIALIST PRODUCT DEMONSTRATOR CHACORTA DE DIOS M.D.Performed By: #### BMP, PT, MG, PTT, CBC #### [place] [address] USABasophils/100 WBC (Bld)0.6 %Normal.[facility] Physician GroupComment on above:Performed By: #### BMP, PT, MG, PTT, CBC #### [place] [address] USAEosinophils (Bld) [#/Vol]0.0 10*3/uLNormal0.0-0.45[facility] Physician GroupComment on above:Performed By: #### BMP, PT, MG, PTT, CBC #### [place] [address] USAEosinophils/100 WBC (Bld)0.5 %Normal.The [facility] Physician GroupComment on above:Performed By: #### BMP, PT, MG, PTT, CBC #### [place] [address] USAErythrocyte distribution width (RBC) [Ratio]13.8 %Normal 12.0-14.8The [facility] Physician GroupComment on above:Performed By: #### BMP, PT, MG, PTT, CBC #### [place] [address] USAHematocrit (Bld) [Volume fraction]39.2 %Tzzfrt87.8-50.0The [facility] Physician GroupComment on above:Performed By: #### BMP, PT, MG, PTT, CBC #### [place] [address] USAHemoglobin (Bld) [Mass/Vol]13.6 g/lALntxuf06.0-17.0The [facility] Physician GroupComment on above:Performed By: #### BMP, PT, MG, PTT, CBC #### [place] [address] USALymphocytes (Bld) [#/Vol]2.2 10*3/uLNormal1.00-4.8The [facility] Physician GroupComment on above:Performed By: #### BMP, PT, MG, PTT, CBC #### [place] [address] USALymphocytes/100 WBC (Bld)24.7 %Normal.The [facility] Physician GroupComment on above:Performed By: #### BMP, PT, MG, PTT, CBC #### [address]H (RBC) [Entitic mass]34.4 zkBsqidh72.5-35.2The [facility] Physician GroupComment on above:Performed By: #### BMP, PT, MG, PTT, CBC #### [address]V (RBC) [Entitic vol]99.1 sJPhseni83.5-101The [facility] Physician GroupComment on above:Performed By: #### BMP, PT, MG, PTT, CBC #### [place] [address] USAMean Corpuscular HGB Conc34.7 g/kNGdvjwi10.5-35.6The [facility] Physician GroupComment on above:Performed By: #### BMP, PT, MG, PTT, CBC #### [place] [address] USAMonocytes (Bld) [#/Vol]0.8 10*3/uLNormal0.0-0.8The [facility] Physician GroupComment on above:Performed By: #### BMP, PT, MG, PTT, CBC #### [place] [address] USAMonocytes/100 WBC (Bld)9.0 %Normal.The [facility] Physician GroupComment on above:Performed By: #### BMP, PT, MG, PTT, CBC #### [place] [address] USANeutrophils (Bld) [#/Vol]5.9 10*3/uLNormal1.8-7.7The [facility] Physician GroupComment on above:Performed By: #### BMP, PT, MG, PTT, CBC #### [facility] [address] [place] [address] USANeutrophils/100 WBC (Bld)65.2 %Normal.The [facility] Physician GroupComment on above:Performed By: #### BMP, PT, MG, PTT, CBC #### [facility] [address] [place] [address] USANRBC%0.0 /100{WBC}Normal0-0.5[facility] Comment on above:Performed By: #### BMP, PT, MG, PTT, CBC #### [facility] [address] [place] [address] USAPlatelet mean volume (Bld) [Entitic vol]7.8 fLNormal 6.6-10.1The [facility] Physician GroupComment on above:Performed By: #### BMP, PT, MG, PTT, CBC #### [facility] [address] [place] [address] USAPlatelets (Bld) [#/Vol]196 10*3/mFHtbpxy961-609Ika [facility] Physician GroupComment on above:Performed By: #### BMP, PT, MG, PTT, CBC #### [facility] [address] [place] [address] USARBC (Bld) [#/Vol]3.96 10*6/uLNormal3.90-5.60The [facility] Physician GroupComment on above:Performed By: #### BMP, PT, MG, PTT, CBC #### [facility] [address] [place] [address] USAWBC (Bld) [#/Vol]9.0 10*3/uLNormal4.1-10.5The [facility] Physician GroupComment on above:Performed By: #### BMP, PT, MG, PTT, CBC #### [facility] [address] [place] [address] USAECG 12 lead ECGon 54-00-4261IGH 12 lead ECGMERCY [facility] Main [place] [address] [place] [id number] Electrocardiograph Report Signed Patient: Rehan Trejo MR#: [id number] : 1965 Acct:[id number] Age/Sex: 59 / M ADM Date: 12/01/24 Loc: Room: [address] [place] [address] Type: ADM IN Attending Dr: Luis Alberto [...] Signed By Deep Amado MD 0 12/02/24 0957[facility] Physician GroupINR in Platelet poor plasma by Coagulation assayOrdered By: Diana Forde on 41-45-2527UZP Coag (PPP) [Relative time]INR in Platelet poor plasma by Coagulation assayTrumbull Regional Medical CenterComment on above:INR Therapeutic Range [...] 3 - 4.5INR Coag (PPP) [Relative time]0.9 {INR}[facility] County Health CenterComment on above:INR Therapeutic Range A) Pre- [...] #### BMP, PT, MG, PTT, CBC #### [address] [address] [facility] 12-02-2024 Specimen: [id number] Received: 12/03/24 Status: SUSAN Garnica Num: [id number] Spec Type: Surgical Subm Dr: Nishant Ceja, DO Tissues: A Femoral Head - Fracture (R HIP) Procedures: HE/2, Gross/Micro L4, Decalcification Age/ Patient Sex Location Account Attending Physician Rehan Trejo 59/M 4N [id number] Luis Alberto Hearn MD SPEC NUM: [id number] RECD: 12/03/24 STATUS: SUSAN GARNICA NUM: [id number] BEA: 12/02/24-[address]: Nishant Ceja DO ENTERED: 12/03/[address]: JUSTIN TYPE: Surgical DEPT: S ENTERED BY: [id number] RECV BY: [id number] ORDERED: HE/2, Gross/Micro L4, Decalcification ORDERED: HE/2, [...] to yellow-bond, glistening, and uniform cut surfaces. Water Taxi Captain sections are submitted in A1?A2 after decalcification in rapid Abdoul immuno. (2, , [id number] A) Microscopic Description Microscopic examination is performed. Specimen: [id number] Received: 12/03/24 Status: SUSAN Garnica Num: [id number] Spec Type: Surgical Subm Dr: Nishant Ceja DO Tissues: A Femoral Head - Fracture (R HIP) Procedures: HE/2, Gross/Micro L4, Decalcification Patient: Rehan Trejo [id number] (Continued) Specimen: [id number] Received: 12/03/24 (Continued) Signed (signature on file) Rahul Correia MD 12/10/24925 (signature on file) Rustam Correia MD 12/10/24926 Specimen: [id number] Received: 12/03/24 Status: SUSAN Garnica Num: [id number] Spec Type: Surgical Subm Dr: Nishant Ceja DO Tissues: A Femoral Head - Fracture (R HIP) Procedures: HE/2, Gross/Micro L4, Decalcification Patient: Rehan Trejo [id number] (Continued) Specimen: [id number] Received: 12/03/24 (Continued) CPT Codes 50004, 27344 Specimen: [id number] Received: 12/03/24 Status: SUSAN Garnica Num: [id number] Spec Type: Surgical Subm Dr: Nishant Ceja DO Tissues: A Femoral Head - Fracture (R HIP) Procedures: HE/2, Gross/Micro L4, Decalcification Patient: Rehan Trejo [id number] (Continued) Signed (signature on file) Rahul Correia MD 12/10/24925 (signature on file) Rahul Correia MD 12/10/24 09NoSelect [facility]ty Hospital [facility] Physician GroupMagnesium [Mass/volume] in Serum or PlasmaOrdered By: Diana Forde on 94-53-4489Nqavmmkhm [Mass/Vol]Magnesium [Mass/volume] in Serum or Plasma1.9-2.7FWhite HospitalMagnesium [Mass/Vol]2.2 mg/dL Normal1.9-2.7FWhite HospitalComment on above:Result Comment: PERFORMED BY: [facility] [place] [address] PATHOLOGIST EVENT SPECIALIST PRODUCT DEMONSTRATOR CHACORTA DE DIOS M.D.Performed By: #### BMP, PT, MG, PTT, CBC #### [facility] [address] [place] [address] USAPartial Thromboplastin Timeon 90-89-8046mPWP Coag (Bld) [Time]27.2 eNksmra26.1-36.5The [facility] Physician GroupComment on above:Result Comment: A hematocrit value greater than 55% may lead to inaccurate results in coagulation testing. Patients having hematocrit values >55% require a special collection tube for coagulation studies. Please contact the laboratory at [phone] for redraw instructions. PERFORMED BY: [address] [place] [id number] PATHOLOGIST EVENT SPECIALIST PRODUCT DEMONSTRATOR CHACORTA DE DIOS M.D.Performed By: #### BMP, PT, MG, PTT, CBC #### [address] [address] USAProthrombin time (PT)Ordered By: Diana Forde on 12-02-2024 PT Coag (PPP) [Time]Prothrombin time (PT)9.0-12.9Tr[facility]ull Regional Medical CenterComment on above:A hematocrit value greater than 55% may lead to inaccurate results in coagulation testing. Patientshaving hematocrit values >55% require a special collection tube for coagulation studies. Please contact the laboratory at [phone] for redraw instructions.PT Coag (PPP) [Time]10.6 s Normal9.0-12.9Tr[facility]ull Regional Medical CenterComment on above:A hematocrit value greater than 55% may lead to inaccurate results in coagulation testing. Patientshaving hematocrit values >55% require a special collection tube for coagulation studies. Please contact the laboratory at [phone] for redraw instructions.Result Comment: A hematocrit value greater than 55% may lead to inaccurate results in coagulation testing. Patients having hematocrit values >55% require a special collection tube for coagulation studies. Please contact the laboratory at [phone] for redraw instructions.Performed By: #### BMP, PT, MG, PTT, CBC #### [address] [address] USAType and Screenon 19-30-6103MNH and Rh group Nom (Bld) Blood group B Rh(D) positiveTrinity Community Hospital Physician GroupComment on above: Result Comment: PERFORMED BY: [place] [id number] PATHOLOGIST EVENT SPECIALIST PRODUCT DEMONSTRATOR CHACORTA DE DIOS M.D.XR hip RT min 2V(w/wo pelvis)*on 14-50-2265KF hip RT min 2V(w/wo pelvis)*[facility] Main [place] [id number] XRay Report Signed Patient: Rehan Trejo MR#: [id number] : 1965 Acct:[id number] Age/Sex: 59 / M ADM Date: 12/01/24 Loc: Room: [address] [place] [address] Type: ADM IN Attending Dr: Luis Alberto [...] Rivera M.D. 12/02/2024 8:15 AM Dictation Location: [place] [address] Transcribed By: [facility] 12/02/24 0815 Dictated By: Nikos Rivera MD 12/02/24 0812 Signed By: 12/02/24 0815OlyaSelect Specialty Hospital - Durham Physician GroupXR low pelvis w/RT x-table hipon 48-96-0010KK low pelvis w/RT x-table hipMERCY [facility] [place] [address] XRay Report Signed Patient: Rehan Trejo MR#: [id number] : 1965 Acct:[id number] Age/Sex: 59 / M ADM Date: 12/01/24 Loc: 4N Room: [address] [place] [address] Type: ADM IN Attending Dr: Luis Alberto [...] Saxena M.D. 12/02/2024 9:09 PM Dictation Location: [place] [address] Transcribed By: [facility] 12/02/242108 Dictated By: Zaire Saxena DO 12/02/242106 Signed By: 12/02/242108[facility] Physician GroupaPTT in Platelet poor plasma by Coagulation assayOrdered By: Diana Forde on 34-86-5349gMZP Coag (PPP) [Time] Activated partial thromboplastin time (aPTT) in platelet poor plasma by coagulation a25.1-36.5FWhite HospitalComment on above:A hematocrit value greater than 55% may lead to inaccurate results in coagulation testing. Patientshaving hematocrit values >55% require a special collection tube for coagulation studies. Please contact the laboratory at [phone] for redraw instructions.aPTT Coag (PPP) [Time]27.2 s25.1-36.5FWhite HospitalComment on above:A hematocrit value greater than 55% may lead to inaccurate results in coagulation testing. Patientshaving hematocrit values >55% require a special collection tube for coagulation studies. Please contact the laboratory at [phone] for redraw instructions.Office Visiton 10-01-2024 Follow-up [id number] Rehan Trejo 1965 M Date Provider Department Center 10/01/2024 68205-CPASEHELISABETH VIDAL [facility] No family history on file Level of Service:76073 [place] OFFICE/OUTPATIENT ESTABLISHED MOD MDM 30 MIN Reason for Visit and Comments: Chest Pain [551501] - Intermittent, describes it as sharp at times. Hypertension [936946] Hyperlipidemia [182] - He stopped taking atorvastatin for no reason in particular. Abnormal ECG [293] - Has loop recorder, denies palpitations and lightheadedness/syncope. Shortness of Breath [522370] - Gets SOB w/wo exertion.NormalUnUC HealthCBC AUTO DIFFon 98-97-1950ARHV #0.0 103/ulNormal0.0-0.1[facility] Hospital ToledoComment on above:Performed By: #### BNP, T7, CMP, TSH #### [facility] [address] [place] [address] Dr. Deutsch ChangBasophils/100 WBC (Bld)0.4 %Normal0.2-2.0[facility] Comment on above:Performed By: #### BNP, T7, CMP, TSH #### [facility] [address] [place] [address] Dr. Get Babcock #0.1 103/ulNormal0.0-0.7The [facility] HospitalComment on above: Performed By: #### BNP, T7, CMP, TSH #### [facility] [address] [place] [address] Dr. Get Paytonosinophils/100 WBC (Bld)0.5 %Critically low0.9-7.0[facility] Hospital ToledoComment on above:Performed By: #### BNP, T7, CMP, TSH #### [facility] [address] [place] [address] Dr. Get Paytonrythrocyte distribution width (RBC) [Ratio]18.6 %Critically high 11.0-15.0The [facility] HospitalComment on above:Performed By: #### BNP, T7, CMP, TSH #### [facility] [address] [place] [address] Dr. Get WhittenHematocrit (Bld) [Volume fraction]33.3 %Critically low42.0-54.0 The [facility] HospitalComment on above:Performed By: #### BNP, T7, CMP, TSH #### [facility] [address] [place] [address] Dr. Get WhittenHemoglobin (Bld) [Mass/Vol]11.1 g/dLCritically low14.0-18.0The [facility] HospitalComment on above:Performed By: #### BNP, T7, CMP, TSH #### [facility] [address] [place] [address] Dr. Get Sanford #0.30 10e3/ulCritically high0.00-0.03The [facility] Comment on above:Performed By: #### BNP, T7, CMP, TSH #### [facility] [address] [place] [address] Dr. Get Sanford %3.3 %Critically high0.0-0.5The [facility] HospitalComment on above:Performed By: #### BNP, T7, CMP, TSH #### [facility] [address] [place] [address] Dr. Get Otoole #3.0 103/ulNormal1.2-3.8The [facility] HospitalComment on above:Performed By: #### BNP, T7, CMP, TSH #### [facility] [address] [place] [address] Dr. Get Ramirezhocytes/100 WBC (Bld)32.7 %Reusat26.5-60.0The [facility] HospitalComment on above:Performed By: #### BNP, T7, CMP, TSH #### [facility] [address] [place] [address] Dr. Get HeadUAL DIFF REQNONormalThe [facility] HospitalComment on above: Performed By: #### BNP, T7, CMP, TSH #### [facility] [address] [place] [address] Dr. Get Manley (RBC) [Entitic mass]34.8 pgCritically high25.9-34.0The [facility] HospitalComment on above:Performed By: #### BNP, T7, CMP, TSH #### [facility] [address] [place] [address] Dr. Get Fried (RBC) [Mass/Vol]33.3 g/yRLkqecj52.9-35.2The [facility] Hollywood HospitalComment on above:Performed By: #### BNP, T7, CMP, TSH #### [facility] [address] [place] [address] Dr. Get WhittenCARNEGIE [facility] [place] (RBC) [Entitic vol]104.4 fLCritically high80.0-94.0The [facility] HospitalComment on above:Performed By: #### BNP, T7, CMP, TSH #### [facility] [address] [place] [address] Dr. Get Bill #0.4 103/ulNormal0.3-0.8The [facility] HospitalComment on above:Performed By: #### BNP, T7, CMP, TSH #### [facility] [address] [place] [address] Dr. Get Locekttocytes/100 WBC (Bld)4.2 %Normal1.7-12.0The [facility] Comment on above:Performed By: #### BNP, T7, CMP, TSH #### [facility] [address] [place] [address] Dr. Get Falcon #5.4 103/ulNormal1.4-6.5The [facility] HospitalComment on above:Performed By: #### BNP, T7, CMP, TSH #### [facility] [address] [place] [address] Dr. Get Andersonutrophils/100 WBC (Bld)58.9 %Knoyfh82.0-75.0The [facility] HospitalComment on above:Performed By: #### BNP, T7, CMP, TSH #### [facility] [address] [place] [address] Dr. Get Hanleylet mean volume (Bld) [Entitic vol]9.5 fLNormal9.5-13.5The [facility] HospitalComment on above:Performed By: #### BNP, T7, CMP, TSH #### [facility] [address] [place] [address] Dr. Get WhittenPLT187 103/nfPsftfv775-346Vey OhioHealth Shelby Hospitalment on above: Performed By: #### BNP, T7, CMP, TSH #### [facility] [address] [place] [address] Dr. Get WhittenRBC3.19 106/ulCritically low4.70-6.10The [facility] HospitalComment on above:Performed By: #### BNP, T7, CMP, TSH #### [facility] [address] [place] [address] Dr. Get WhittenWBC9.1 103/ulNormal4.0-11.0The [facility] on above: Performed By: #### BNP, T7, CMP, TSH #### [facility] [address] [place] [address] Dr. Get VickF 14(COMP METB)on 85-85-9618Hhoyvso [Mass/Vol]3.9 g/dLNormal 3.4-5.0The [facility] HospitalCompine rest christian mental health services on above:Performed By: #### CMP #### [facility] [address] [place] [address] Dr. Get WhittenAlbumin/Globulin [Mass ratio]1.1 {ratio}NormalThe [facility] HospitalCompine rest [facility] mental health services on above:Performed By: #### CMP #### [facility] [address] [place] [address] Dr. Get Saba [Catalytic activity/Vol]34 U/LCritically xgc47-724Qxw [facility] on above:Performed By: #### CMP #### [facility] [address] [place] [address] Dr. Get Pichardo [Catalytic activity/Vol]21 U/GLgoirv87-25Blc [facility] HospitalComment on above:Performed By: #### CMP #### [facility] [address] [place] [address] [address] Get Torrezon gap [Moles/Vol]17.7 mmol/LNormalThe [facility] Comment on above:Performed By: #### CMP #### [facility] [address] [place] [address] [address] Get WhittenAST [Catalytic activity/Vol]15 U/ZBhohdc38-25Hjm [facility] HospitalComment on above:Performed By: #### CMP #### [facility] [address] [place] [address] [address] Get WhittenBilirubin [Mass/Vol]0.3 mg/dLNormal0.2-1.0The [facility] Comment on above:Performed By: #### CMP #### [facility] [address] [place] [address] [address] Get WhittenCalcium [Mass/Vol]8.7 mg/dLNormal8.5-10.1The [facility] Comment on above:Performed By: #### CMP #### [facility] [address] [place] [address] [address] Get WhittenChloride [Moles/Vol]99 mmol/YApgzsb96-847Gpb [facility] Comment on above:Performed By: #### CMP #### [facility] [address] [place] [address] [address] Get WhittenCO2 [Moles/Vol]21.8 mmol/VPtrzvm56.0-32.0The [facility] Comment on above:Performed By: #### CMP #### [facility] [address] [place] [address] [address] Get WhittenCreatinine [Mass/Vol]1.69 mg/dLCritically high0.70-1.30The [facility] HospitalComment on above:Performed By: #### CMP #### [facility] [address] [place] [address] [address] Deutsch ChangEGFR-AF CTXOFEFV45 mL/min/1.55e6Intwarvvha low>=60The [facility] HospitalComment on above:Performed By: #### CMP #### [facility] [address] [place] [address] [address] Get PaytonGFR-NON AF YQMTPWIQ92 mL/min/1.86t6Aarhuvduau low>=60The [facility] HospitalComment on above:Performed By: #### CMP #### [facility] [address] [place] [address] [address] Get WhittenGlobulin (S) [Mass/Vol]3.6 g/dLNormUniversity Hospitals Parma Medical CenterComment on above:Performed By: #### CMP #### [facility] [address] [place] [address] [address] Get WhittenGlucose [Mass/Vol]96 mg/iGKtbcxw86-790Qml [facility] Comment on above:Performed By: #### CMP #### [facility] [address] [place] [address] [address] Get WhittenPotassium [Moles/Vol]3.5 mmol/LNormal3.5-5.1The [facility] Comment on above:Performed By: #### CMP #### [facility] [address] [place] [address] [address] Get WhittenProtein [Mass/Vol]7.5 g/dLNormal6.4-8.2The [facility] Comment on above:Performed By: #### CMP #### [facility] [address] [place] [address] [address] Get WhittenSodium [Moles/Vol]135 mmol/LCritically fdh893-407Kkx [facility] HospitalComment on above:Performed By: #### CMP #### [facility] [address] [place] [address] [address] Get WhittenUrea nitrogen [Mass/Vol]15.0 mg/dLNormal7.0-18.0The [facility] HospitalComment on above:Performed By: #### CMP #### [facility] [address] [place] [address] [address] Get WhittenUrea nitrogen/Creatinine [Mass ratio]8.9 mg/mgNormUniversity Hospitals Parma Medical CenterComment on above:Performed By: #### CMP #### [facility] [address] [place] [address] Dr. Get WhittenT3, TOTAL (TRIIODOTHYRONINE)on 03-93-8309R9, TOTAL<20Critically pxw47-157Coh [facility] HospitalComment on above:Performed By: #### CVDTBH #### [facility] [address] [place] [address] Dr. Get Leonardon 30-16-4303Motmvrn (P) [Mass/Vol]ug/dLCritically low 11-32The [facility] HospitalComment on above:Performed By: #### CMP #### [facility] [address] [place] [address] Dr. Get Dawson 81-87-7434Obygtvrtbxo peptide B (Bld) [Mass/Vol]50.0 pg/mL Normal<=900.0The [facility] HospitalComment on above:Performed By: #### BNP, T7, CMP, TSH #### [facility] [address] [place] [address] Dr. Get Crockett ANA ADMITon 97-68-0428KB [Catalytic activity/Vol]173 U/L Dfmbdb89-820Sgu [facility] HospitalComment on above:Performed By: #### BNP, T7, CMP, TSH #### [facility] [address] [place] [address] Dr. Get Melara.MB [Mass/Vol]1.64 ng/mLNormal<=3.60The [facility] Comment on above:Performed By: #### BNP, T7, CMP, TSH #### [facility] [address] [place] [address] Dr. Get WhittenHSTROP4.3 pg/mLNormal4.0-76.1The [facility] HospitalComment on above:Result Comment: CUT-OFF POINTS HAVE BEEN ESTABLISHED BASED ON THE FOURTH UNIVERSAL DEFINITIONS OF MYOCARDIAL INFARCTION. THE UPPER REFERENCE LIMIT (URL) OF TROPONIN, DEFINED THE 99TH PERCENTILE OF cTnI DISTRIBUTION IN A REFERENCE POPULATION, HAS BEEN CONFIRMED THE DECISION THRESHOLD FOR SC DIAGNOSIS.Performed By: #### BNP, T7, CMP, TSH #### [facility] [facility] [address] [place] [address] Dr. Get Rod72 ng/rGUvfprc75-13Ics [facility] Hospitalment on above: Performed By: #### BNP, T7, CMP, TSH #### [facility] [address] [place] [address] Dr. Get Meyer AUTO DIFFon [id number] #0.1 103/ulNormal0.0-0.1The [facility] HospitalComment on above:Performed By: #### CVDTBH #### [facility] [address] [place] [address] Dr. Get WhittenBasophils/100 WBC (Bld)0.6 %Normal0.2-2.0The [facility] Comment on above:Performed By: #### CVDTBH #### [facility] [address] [place] [address] Dr. Get Babcock #0.0 103/ulNormal0.0-0.7The [facility] HospitalComment on above: Performed By: #### CVDTBH #### [facility] [address] [place] [address] Dr. Get Paytonosinophils/100 WBC (Bld)0.4 %Critically low0.9-7.0The [facility] Hospitalment on above:Performed By: #### CVDTBH #### [facility] [address] [place] [address] Dr. Get Paytonrythrocyte distribution width (RBC) [Ratio]18.6 %Critically high 11.0-15.0The [facility] Hospitalment on above:Performed By: #### CVDTBH #### [facility] [address] [place] [address] Dr. Get WhittenHematocrit (Bld) [Volume fraction]35.4 %Critically low42.0-54.0 The [facility] Hospitalment on above:Performed By: #### CVDTBH #### [facility] [address] [place] [address] Dr. Get WhittenHemoglobin (Bld) [Mass/Vol]11.9 g/dLCritically low14.0-18.0The [facility] HospitalComment on above:Performed By: #### CVDTBH #### [facility] [address] [place] [address] Dr. Get Sanford #0.28 10e3/ulCritically high0.00-0.03The [facility] Comment on above:Performed By: #### CVDTBH #### [facility] [address] [place] [address] Dr. Get Sanford %3.5 %Critically high0.0-0.5The [facility] HospitalComment on above:Performed By: #### CVDTBH #### [facility] [address] [place] [address] Dr. Get Otoole #3.3 103/ulNormal1.2-3.8The [facility] HospitalComment on above:Performed By: #### CVDTBH #### [facility] [address] [place] [address] Dr. Get Ramirezhocytes/100 WBC (Bld)41.6 %Dohewj90.5-60.0The [facility] HospitalComment on above:Performed By: #### CVDTBH #### [facility] [address] [place] [address] Dr. Get Ace DIFF REQNONormalThe [facility] HospitalComment on above: Performed By: #### CVDTBH #### [facility] [address] [place] [address] Dr. Get Manley (RBC) [Entitic mass]35.1 pgCritically high25.9-34.0The [facility] HospitalComment on above:Performed By: #### CVDTBH #### [facility] [address] [place] [address] Dr. Get Fried (RBC) [Mass/Vol]33.6 g/wPIbqjsy49.9-35.2The [facility] HospitalComment on above:Performed By: #### CVDTBH #### [facility] [address] [place] [address] Dr. Get FriedV (RBC) [Entitic vol]104.4 fLCritically high80.0-94.0The [facility] HospitalComment on above:Performed By: #### CVDTBH #### [facility] [address] [place] [address] Dr. Get Bill #0.4 103/ulNormal0.3-0.8The [facility] HospitalComment on above:Performed By: #### CVDTBH #### [facility] [address] [place] [address] Dr. Get Lockettocytes/100 WBC (Bld)5.0 %Normal1.7-12.0The [facility] Comment on above:Performed By: #### CVDTBH #### [facility] [address] [place] [address] Dr. eGt Falcon #3.9 103/ulNormal1.4-6.5The [facility] HospitalComment on above:Performed By: #### CVDTBH #### [facility] [address] [place] [address] Dr. Get Andersonutrophils/100 WBC (Bld)48.9 %Tjcime47.0-75.0The [facility] HospitalComment on above:Performed By: #### CVDTBH #### [facility] [address] [place] [address] Dr. Get Hanleylet mean volume (Bld) [Entitic vol]9.5 fLNormal9.5-13.5The [facility] HospitalComment on above:Performed By: #### CVDTBH #### [facility] [address] [place] [address] Dr. Get WhittenPLT182 103/htYdbdur740-884Qvq [facility] HospitalComment on above: Performed By: #### CVDTBH #### [facility] [address] [place] [address] Dr. Get WhittenRBC3.39 106/ulCritically low4.70-6.10The [facility] HospitalComment on above:Performed By: #### CVDTBH #### [facility] [address] [place], [place] [address] Dr. Get WhittenWBC8.0 103/ulNormal4.0-11.0The [facility] HospitalComment on above: Performed By: #### CVDTBH #### [facility] [address] [place], [place] [address] Dr. Get WhittenCT CSPINE WO CONon [id number] CSPINE WO CONEXAMINATION: CT CSPINE WO CON [...] Electronically authenticated by: SHEN SOSA Date: 2022-11-27 11:26Corey HospitalCT STROKE HEAD WOon [id number] STROKE HEAD WOEXAMINATION: CT STROKE HEAD WO [...] Electronically authenticated by: SHEN SOSA Date: 2022-11-27 11:16NoSelect [facility], Edwin ShawCovid-19 PCR (CVDTBH)on 64-85-2873XPFR-CoV-2 (COVID-19) RNA ASHLEE+probe Ql (Unsp spec)Not detectedNormalNOT DETECTEDRegency Hospital [facility] Comment on above:Result Comment: THIS TEST IS NOT APPROVED BY THE FDA. IT HAS BEEN AUTHORIZED FOR USE UNDER AN EMERGENCY USE AUTHORIZATION.Performed By: #### CMP #### [facility] [address] [place] [address] Dr. Get MercadoANOL (BLD ALC)on 33-71-4546FJY NOTENOTE: 80 mg/dl is the legal limit for a blood alcohol levelNoSelect Medical [facility] Hospital, Edwin ShawComment on above: Performed By: #### BNP, T7, CMP, TSH #### [facility] [address] [address] [address] Get Paytonthanol [Mass/Vol]mg/dLNoSelect Medical [facility] Hospital, Edwin ShawComment on above:Performed By: #### BNP, T7, CMP, TSH #### [facility] [address] [place] [address] Dr. Get WhittenMAGNESIUMon 62-46-7704Prlpnbzbg [Mass/Vol]2.3 mg/dLNormal1.8-2.4 The [facility] HospitalComment on above:Performed By: #### BNP, T7, CMP, TSH #### [facility] [address] [place] [address] Dr. Get Richards 14(COMP METB)on 54-03-9227Hgexkce [Mass/Vol]4.1 g/dLNormal 3.4-5.0The [facility] HospitalComment on above:Performed By: #### BNP, T7, CMP, TSH #### [facility] [address] [address] [address] Get WhittenAlbumin/Globulin [Mass ratio]1.1 {ratio}NormalThe [facility] HospitalComment on above:Performed By: #### BNP, T7, CMP, TSH #### [facility] [address] [address] [address] Get MartinezP [Catalytic activity/Vol]36 U/LCritically oyl53-036Wqc [facility] HospitalComment on above:Performed By: #### BNP, T7, CMP, TSH #### [facility] [address] [address] [address] Get MartinezT [Catalytic activity/Vol]15 U/LCritically omq74-44Npj [facility] HospitalComment on above:Performed By: #### BNP, T7, CMP, TSH #### [facility] [address] [place] [address] Dr. Get Torrezon gap [Moles/Vol]15.0 mmol/LNormalThe [facility] Comment on above:Performed By: #### BNP, T7, CMP, TSH #### [facility] [address] [place] [address] Dr. Get WhittenAST [Catalytic activity/Vol]13 U/LCritically agv89-68Nyf [facility] HospitalComment on above:Performed By: #### BNP, T7, CMP, TSH #### [facility] [address] [place] [address] Dr. Get WhittenBilirubin [Mass/Vol]0.3 mg/dLNormal0.2-1.0The [facility] Comment on above:Performed By: #### BNP, T7, CMP, TSH #### [facility] [address] [place] [address] Dr. Get WhittenCalcium [Mass/Vol]9.1 mg/dLNormal8.5-10.1The [facility] Comment on above:Performed By: #### BNP, T7, CMP, TSH #### [facility] [address] [place] [address] Dr. Get WhittenChloride [Moles/Vol]101 mmol/STpdqnh34-064Gde [facility] Comment on above:Performed By: #### BNP, T7, CMP, TSH #### [facility] [address] [address] [address] Get WhittenCO2 [Moles/Vol]22.2 mmol/WUqybbe71.0-32.0[facility] Comment on above:Performed By: #### BNP, T7, CMP, TSH #### [facility] [address] [place] [address] Dr. Get WhittenCreatinine [Mass/Vol]1.84 mg/dLCritically high0.70-1.30The [facility] HospitalComment on above:Performed By: #### BNP, T7, CMP, TSH #### [facility] [address] [place] [address] Dr. Get PaytonGFR-AF IUGTZYOS50 mL/min/1.57e6Oqyaltxigp low>=60The [facility] HospitalComment on above:Performed By: #### BNP, T7, CMP, TSH #### [facility] [address] [place] [address] Dr. Get PaytonGFR-NON AF OTBNVEKI53 mL/min/1.00g6Rqtmqyqokp low>=60The [facility] HospitalComment on above:Performed By: #### BNP, T7, CMP, TSH #### [facility] [address] [place] [address] Dr. Get WhittenGlobulin (S) [Mass/Vol]3.6 g/dLNormalThe [facility] HospitalComment on above:Performed By: #### BNP, T7, CMP, TSH #### [facility] [address] [place] [address] Dr. Get WhittenGlucose [Mass/Vol]87 mg/mYQbrphh82-101NjpRegency Hospital [place] Comment on above:Performed By: #### BNP, T7, CMP, TSH #### [facility] [address] [place] [address] Dr. Get WhittenPotassium [Moles/Vol]4.2 mmol/LNormal3.5-5.1[facility] Comment on above:Performed By: #### BNP, T7, CMP, TSH #### [facility] [address] [place] [address] Dr. Get WhittenProtein [Mass/Vol]7.7 g/dLNormal6.4-8.2The [facility] Comment on above:Performed By: #### BNP, T7, CMP, TSH #### [facility] [address] [place] [address] Dr. Get WhittenSodium [Moles/Vol]134 mmol/LCritically hoj996-441Ncc [facility] HospitalComment on above:Performed By: #### BNP, T7, CMP, TSH #### [facility] [address] [place] [address] Dr. Get De Jesus nitrogen [Mass/Vol]14.0 mg/dLNormal7.0-18.0The [facility] HospitalComment on above:Performed By: #### BNP, T7, CMP, TSH #### [facility] [address] [place] [address] Dr. Get De Jesus nitrogen/Creatinine [Mass ratio]7.6 mg/mgNoSelect Medical [facility] Rehabilitation Hospital, Edwin ShawComment on above:Performed By: #### BNP, T7, CMP, TSH #### [facility] [address] [place] [address] Dr. Get Mrecado 27-34-2925IQV Coag (PPP) [Relative time]0.98 {INR} NormalRegency Hospital ToledoComment on above:Performed By: #### BNP, T7, CMP, TSH #### [facility] [address] [place] [address] Dr. Get Monteiro GUIDELINESSEE BELOWCorey HospitalComment on above:Result Comment: DESIRED INR: 2.0 - 3.0 CONDITIONS NOT LISTED BELOW 2.5 - 3.5 FOR PROSTHETIC HEART VALVE REPLACEMENT 2.5 - 3.5 RECURRENT THROMBOSIS Performed By: #### BNP, T7, CMP, TSH #### [facility] [address] [place] [address] Dr. Get WhittenPT Coag (PPP) [Time]10.4 sNormal9.0-11.6The [facility] Comment on above:Performed By: #### BNP, T7, CMP, TSH #### [facility] [address] [place] [address] Dr. Get Henley [id number] Coag (Bld) [Time]30.4 oRdbsbt69.3-36.2The [facility] HospitalComment on above:Performed By: #### BNP, T7, CMP, TSH #### [facility] [address] [place] [address] Dr. Get WhittenSYMPMARIUSZMATIC COVID-19 ANTIGENon [id number] StatementSEE BELOW NormalThe [facility] HospitalComment on above:Result Comment: This test has [...] sooner.Performed By: #### CMP, HSTROPN, BNP #### [facility] [address] [place] [address] Dr. Get Llanos-CoV-2 (COVID-19) RNA ASHLEE+probe Ql (Unsp spec)NegativeNormal NEGATIVEThe [facility] HospitalComment on above:Performed By: #### CMP, HSTROPN, BNP #### [facility] [address] [place] [address] Dr. Get WhittenT4on [id number] [Mass/Vol]0.90 ug/dLCritically low4.50-12.10The [facility] HospitalComment on above:Performed By: #### BNP, T7, CMP, TSH #### [facility] [address] [place], [place] [address] Dr. Get Charles, HIGH SENSITIVITYon 74-91-4494KZRIEB5.1 pg/mLNormal 4.0-76.1The [facility] HospitalComment on above:Result Comment: CUT-OFF POINTS HAVE BEEN ESTABLISHED BASED ON THE FOURTH UNIVERSAL DEFINITIONS OF MYOCARDIAL INFARCTION. THE UPPER REFERENCE LIMIT (URL) OF TROPONIN, DEFINED THE 99TH PERCENTILE OF cTnI DISTRIBUTION IN A REFERENCE POPULATION, HAS BEEN CONFIRMED THE DECISION THRESHOLD FOR SC DIAGNOSIS.Performed By: #### BNP, T7, CMP, TSH #### [facility] [address] [address] [address] Get Hidalgo 56-13-5257TDG295.470 uIU/mLCritically high0.358-3.740The [facility] HospitalComment on above:Performed By: #### BNP, T7, CMP, TSH #### [facility] [address] [address] [address] Get WhittenXR CHEST 1 Von 65-28-0970LP CHEST 1 VEXAMINATION: XR CHEST 1 V [...] Electronically authenticated by: SHEN SOSA Date: 2022-11-27 11:19Corey HospitalXR CSPINE MIN 4 VIEWSon [id number] CSPINE MIN 4 VIEWS EXAMINATION: XR CSPINE [...] Electronically authenticated by: SHEN SOSA Date: 2022-10-24 10:22[facility] HospitalXR LSPINE MIN 4 VIEWSon [id number] LSPINE MIN 4 VIEWS EXAMINATION: XR LSPINE [...] Electronically authenticated by: SHEN SOSA Date: 2022-10-24 10:19[facility]y HospitalH PYLORI ANTIBODY IGGon 04-16-2022H. PYLORI IGG ABS0.07 Index ValueNormal0.00-0.79The [facility] HospitalComment on above:Result Comment: Negative <0.80 Equivocal 0.80 - 0.89 Positive >0.89Performed By: #### BNP, T7, CMP, TSH #### [facility] [address] [place], [place] [address] Dr. Get Dawson 93-92-3070Lagcbzpbixz peptide B (Bld) [Mass/Vol]138.0 pg/mL Normal<=900.0The [facility] HospitalComment on above:Performed By: #### BNP, T7, CMP, TSH #### [facility] [address] [place] [address] Dr. Get Meyer AUTO DIFFon [id number] #0.0 103/ulNormal0.0-0.1The [facility] Hospitalment on above:Performed By: #### CMP, HSTROPN, BNP #### [facility] [address] [place] [address] Dr. Get WhittenBasophils/100 WBC (Bld)0.4 %Normal0.2-2.0The [facility] Comment on above:Performed By: #### CMP, HSTROPN, BNP #### [facility] [address] [place] [address] Dr. Get Babcock #0.0 103/ulNormal0.0-0.7The [facility] HospitalComment on above: Performed By: #### CMP, HSTROPN, BNP #### [facility] [address] [place] [address] Dr. Get Paytonosinophils/100 WBC (Bld)0.3 %Critically low0.9-7.0The [facility] Hospitalment on above:Performed By: #### CMP, HSTROPN, BNP #### [facility] [address] [place] [address] Dr. Get Paytonrythrocyte distribution width (RBC) [Ratio]13.2 %Snixus93.0-15.0 The [facility] Hospitalment on above:Performed By: #### CMP, HSTROPN, BNP #### [facility] [address] [place] [address] Dr. Get WhittenHematocrit (Bld) [Volume fraction]37.9 %Critically low42.0-54.0 The [facility] HospitalComment on above:Performed By: #### CMP, HSTROPN, BNP #### [facility] [address] [place] [address] Dr. Get WhittenHemoglobin (Bld) [Mass/Vol]13.1 g/dLCritically low14.0-18.0The [facility] HospitalComment on above:Performed By: #### CMP, HSTROPN, BNP #### [facility] [address] [place] [address] Dr. Get Sanford #0.24 10e3/ulCritically high0.00-0.03The [facility] Comment on above:Performed By: #### CMP, HSTROPN, BNP #### [facility] [address] [place] [address] Dr. Get Sanford %3.1 %Critically high0.0-0.5The [facility] HospitalComment on above:Performed By: #### CMP, HSTROPN, BNP #### [facility] [address] [place] [address] Dr. Get Otoole #3.1 103/ulNormal1.2-3.8The [facility] HospitalComment on above:Performed By: #### CMP, HSTROPN, BNP #### [facility] [address] [place] [address] Dr. Get Ramirezhocytes/100 WBC (Bld)40.3 %Riojmn66.5-60.0The [facility] HospitalComment on above:Performed By: #### CMP, HSTROPN, BNP #### [facility] [address] [place] [address] Dr. Get HeadUAL DIFF REQNONormalThe [facility] HospitalComment on above: Performed By: #### CMP, HSTROPN, BNP #### [facility] [address] [place] [address] Dr. Get Manley (RBC) [Entitic mass]36.1 pgCritically high25.9-34.0The [facility] HospitalComment on above:Performed By: #### CMP, HSTROPN, BNP #### [facility] [address] [place] [address] Dr. Get Fried (RBC) [Mass/Vol]34.6 g/qURjslxq64.9-35.2The [facility] HospitalComment on above:Performed By: #### CMP, HSTROPN, BNP #### [facility] [address] [address] [address] Get Whitten (RBC) [Entitic vol]104.4 fLCritically high80.0-94.0The [facility] HospitalComment on above:Performed By: #### CMP, HSTROPN, BNP #### [facility] [address] [place] [address] Dr. Get Bill #0.7 103/ulNormal0.3-0.8The [facility] HospitalComment on above:Performed By: #### CMP, HSTROPN, BNP #### [facility] [address] [place] [address] Dr. Get Lockettocytes/100 WBC (Bld)9.4 %Normal1.7-12.0The [facility] Comment on above:Performed By: #### CMP, HSTROPN, BNP #### [facility] [address] [place] [address] Dr. Get Falcon #3.6 103/ulNormal1.4-6.5The [facility] HospitalComment on above:Performed By: #### CMP, HSTROPN, BNP #### [facility] [address] [place] [address] Dr. Get Kelloggophils/100 WBC (Bld)46.5 %Rpezvc57.0-75.0The [facility] HospitalComment on above:Performed By: #### CMP, HSTROPN, BNP #### [facility] [address] [place] [address] Dr. Get Castro mean volume (Bld) [Entitic vol]8.5 fLCritically low 9.5-13.5The [facility] HospitalComment on above:Performed By: #### CMP, HSTROPN, BNP #### [facility] [address] [place] [address] Dr. Get SalazarT128 103/ulCritically nfu897-717Daj [facility] HospitalComment on above:Performed By: #### CMP, HSTROPN, BNP #### [facility] [address] [place] [address] Dr. Get WhittenRBC3.63 106/ulCritically low4.70-6.10The [facility] Hospitalment on above:Performed By: #### CMP, HSTROPN, BNP #### [facility] [address] [place] [address] Dr. Get WhittenWBC7.7 103/ulNormal4.0-11.0The [facility] HospitalCompine rest [facility] services on above: Performed By: #### CMP, HSTROPN, BNP #### [facility] [address] [place] [address] Dr. Get Kelley THYROXINE INDEX T7on 59-03-3852UKX1.22Critically low 1.30-4.50The [facility] on above:Performed By: #### BNP, T7, CMP, TSH #### [facility] [address] [place] [address] Dr. Get WhittenT3U37.0 %Vxjyug11.0-40.0The [facility] on above: Performed By: #### BNP, T7, CMP, TSH #### [facility] [address] [place] [address] Dr. Get WhittenT4 [Mass/Vol]0.60 ug/dLCritically low4.50-12.10The [facility] on above:Performed By: #### BNP, T7, CMP, TSH #### [facility] [address] [place] [address] Dr. Get Oconnell 80-71-9809Hlei [Mass/Vol]74.0 ug/yFBwolrr82.0-175.0The [facility] HospitalCompine rest [facility] on above:Performed By: #### CVDTBH #### [facility] [address] [place] [address] Dr. Get Richards 14(COMP METB)on 73-75-4789Tazsvoe [Mass/Vol]3.6 g/dLNormal 3.4-5.0The [facility] HospitalComment on above:Performed By: #### BNP, T7, CMP, TSH #### [facility] [address] [address] [address] Get WhittenAlbumin/Globulin [Mass ratio]1.3 {ratio}NormalThe [facility] HospitalComment on above:Performed By: #### BNP, T7, CMP, TSH #### [facility] [address] [place] [address] Dr. Get MartinezP [Catalytic activity/Vol]41 U/LCritically [id number] [facility] HospitalComment on above:Performed By: #### BNP, T7, CMP, TSH #### [facility] [address] [place] [address] Dr. Get MartinezT [Catalytic activity/Vol]111 U/LCritically erco21-12Tpj [facility] HospitalComment on above:Performed By: #### BNP, T7, CMP, TSH #### [facility] [address] [place] [address] Dr. Get WhittenAnion gap [Moles/Vol]10.3 mmol/LNormalThe [facility] Comment on above:Performed By: #### BNP, T7, CMP, TSH #### [facility] [address] [place] [address] Dr. Get WhittenAST [Catalytic activity/Vol]30 U/JMglhow47-30Bch [facility] HospitalComment on above:Performed By: #### BNP, T7, CMP, TSH #### [facility] [address] [place] [address] Dr. Get WhittenBilirubin [Mass/Vol]0.3 mg/dLNormal0.2-1.0The [facility] Comment on above:Performed By: #### BNP, T7, CMP, TSH #### [facility] [address] [place] [address] Dr. Get WhittenCalcium [Mass/Vol]8.1 mg/dLCritically low8.5-10.1The [facility] HospitalComment on above:Performed By: #### BNP, T7, CMP, TSH #### [facility] [address] [place] [address] Dr. Get WhittenChloride [Moles/Vol]98 mmol/QNxuwzy08-041Rpk [facility] Comment on above:Performed By: #### BNP, T7, CMP, TSH #### [facility] [address] [address] [address] Get WhittenCO2 [Moles/Vol]24.7 mmol/MWwzkfw96.0-32.0The [facility] Comment on above:Performed By: #### BNP, T7, CMP, TSH #### [facility] [address] [place] [address] Dr. Get WhittenCreatinine [Mass/Vol]1.24 mg/dLNormal0.70-1.30The [facility] HospitalComment on above:Performed By: #### BNP, T7, CMP, TSH #### [facility] [address] [place] [address] Dr. Get Mcdowell-AF TAIWANESE>60Normal>=60The [facility] HospitalComment on above:Performed By: #### BNP, T7, CMP, TSH #### [facility] [address] [place] [address] Dr. Get Mcdowell-NON AF TAIWANESE=60Normal>=60The [facility] HospitalComment on above:Performed By: #### BNP, T7, CMP, TSH #### [facility] [address] [place] [address] Dr. Get WhittenGlobulin (S) [Mass/Vol]2.7 g/dLNormalThe [facility] HospitalComment on above:Performed By: #### BNP, T7, CMP, TSH #### [facility] [address] [place] [address] Dr. Get WhittenGlucose [Mass/Vol]107 mg/dLCritically qarh39-799Tnj [facility] HospitalComment on above:Performed By: #### BNP, T7, CMP, TSH #### [facility] [address] [place] [address] Dr. Get WhittenPotassium [Moles/Vol]4.0 mmol/LNormal3.5-5.1The [facility] Comment on above:Performed By: #### BNP, T7, CMP, TSH #### [facility] [address] [place] [address] Dr. Get WhittenProtein [Mass/Vol]6.3 g/dLCritically low6.4-8.2The [facility] HospitalComment on above:Performed By: #### BNP, T7, CMP, TSH #### [facility] [address] [place] [address] Dr. Get WhittenSodium [Moles/Vol]129 mmol/LCritically jhz563-427Scx [facility] HospitalComment on above:Performed By: #### BNP, T7, CMP, TSH #### [facility] [address] [place] [address] Dr. Get WhittenUrea nitrogen [Mass/Vol]12.0 mg/dLNormal7.0-18.0The [facility] HospitalComment on above:Performed By: #### BNP, T7, CMP, TSH #### [facility] [address] [place] [address] Dr. Get De Jesus nitrogen/Creatinine [Mass ratio]9.7 mg/mgNormalThe [facility] HospitalComment on above:Performed By: #### BNP, T7, CMP, TSH #### [facility] [address] [place] [address] Dr. Get Hidalgo 95-19-1343GQO06.327 uIU/mLCritically high0.358-3.740The [facility] HospitalCompine rest [facility] on above:Performed By: #### BNP, T7, CMP, TSH #### [facility] [address] [place] [address] Dr. Get Dawson 54-90-4361Vxnkwbxfuox peptide B (Bld) [Mass/Vol]349.0 pg/mL Normal<=900.0The [facility] on above:Performed By: #### BNP, T7, CMP, TSH #### [facility] [address] [place] [address] Dr. Get Meyer W MANUAL DIFFon [id number] LYMPH #0.26 103/ulNormal The [facility] HospitalComment on above:Performed By: #### CMP #### [facility] [address] [place] [address] Dr. Get Bhatia LYMPH %2 %NormalThe [facility] HospitalComment on above: Performed By: #### CMP #### [facility] [address] [place] [address] Dr. Get Day #0.0 103/ulNormal0.0-0.3The [facility] HospitalComment on above:Performed By: #### CMP #### [facility] [address] [place] [address] Dr. Get Day %0 %Normal0-5The [facility] HospitalComment on above:Performed By: #### CMP #### [facility] [address] [place] [address] Dr. Get Aceves #0.00 103/ulNormal0.00-0.10The [facility] HospitalComment on above:Performed By: #### CMP #### [facility] [address] [place] [address] Dr. Get Aceves %0.0 %Critically low0.2-2.0The [facility] HospitalComment on above:Performed By: #### CMP #### [facility] [address] [place] [address] Dr. Get Wing #NormalRegency Hospital ToledoComment on above:Performed By: #### CMP #### [facility] [address] [place] [address] Dr. Get Wing %NormalJoint Township District Memorial Hospital HospitalComment on above:Performed By: #### CMP #### [facility] [address] [place] [address] Dr. Get CanalesRRECTED WBCNormal4.0-11.0The [facility] HospitalComment on above: Performed By: #### CMP #### [facility] [address] [place] [address] Dr. Get Kendrick #0.00 103/ulNormal0.00-0.70The [facility] HospitalComment on above:Performed By: #### CMP #### [facility] [address] [address] [address] Get Kendrick%0.0 %Critically low0.9-7.0The [facility] HospitalComment on above:Performed By: #### CMP #### [facility] [address] [place] [address] Dr. Get MurciaT38.3 %Critically low42.0-54.0The [facility] HospitalComment on above:Performed By: #### CMP #### [facility] [address] [place] [address] Dr. Get WhittenHGB13.7 g/dlCritically low14.0-18.0The [facility] HospitalComment on above:Performed By: #### CMP #### [facility] [address] [place] [address] Dr. Get Villarreal #1.43 103/ulNormal1.20-3.80The [facility] HospitalComment on above:Performed By: #### CMP #### [facility] [address] [place] [address] Dr. Get Villarreal%11.0 %Critically low20.5-60.0The [facility] HospitalComment on above:Performed By: #### CMP #### [facility] [address] [place] [address] Dr. Get FriedH36.3 pgCritically high25.9-34.0The [facility] HospitalComment on above:Performed By: #### CMP #### [facility] [address] [place] [address] Dr. Get FriedHC35.8 g/dlCritically high29.9-35.2The [facility] HospitalComment on above:Performed By: #### CMP #### [facility] [address] [place] [address] Dr. Get FreidV101.6 fLCritically high80.0-94.0The [facility] HospitalComment on above:Performed By: #### CMP #### [facility] [address] [place] [address] Dr. Get SalinasOCYTE #NormalRegency Hospital ToledoComment on above: Performed By: #### CMP #### [facility] [address] [address] [address] Get WeinbergAMYELOCYTE %NormalRegency Hospital ToledoComment on above: Performed By: #### CMP #### [facility] [address] [address] [address] Get Leyva#0.78 103/ulNormal0.30-0.80The [facility] HospitalComment on above:Performed By: #### CMP #### [facility] [address] [address] [address] Get Leyva%6.0 %Normal1.7-12.0The [facility] HospitalComp[facility] on above: Performed By: #### CMP #### [facility] [address] [address] [address] Get WhittenMPV8.7 fLCritically low9.5-13.5The [facility] HospitalComment on above:Performed By: #### CMP #### [facility] [address] [address] [address] Get CaryOCYTE #NormalMount [facility]. [facility] on above:Performed By: #### CMP #### [facility] [address] [place] [address] Dr. Get CaryOCYTE %NormalRegency Hospital ToledoCompine rest [facility] services on above:Performed By: #### CMP #### [facility] [address] [place] [address] Dr. Get WhittenNRBCNormalThe [facility] HospitalComment on above:Performed By: #### CMP #### [facility] [address] [address] [address] Get WhittenPLT225 103/nwBxgdtz751-707Ueq [facility] HospitalComp[facility] on above: Performed By: #### CMP #### [facility] [address] [address] [address] Get WhittenRBC3.77 106/ulCritically low4.70-6.10The [facility] HospitalComment on above:Performed By: #### CMP #### [facility] [address] [address] [address] Get RamirezW12.7 %Kqglgs25.0-15.0The [facility] HospitalComment on above: Performed By: #### CMP #### [facility] [address] [address] [address] Get Kimble #10.53 103/ulCritically high1.40-6.50The [facility] Comment on above:Performed By: #### CMP #### [facility] [address] [place] [address] Dr. Get Kimble %81.0 %Critically high43.0-75.0The [facility] Hospitalment on above:Performed By: #### CMP #### [facility] [address] [place] [address] Dr. Get ShepherdBC13.0 103/ulCritically high4.0-11.0The [facility] Hospitalment on above:Performed By: #### CMP #### [facility] [address] [place] [address] Dr. Get Cintron [id number] [Mass/Vol]mg/LNormal<=1.0The [facility] on above:Performed By: #### BNP, T7, CMP, TSH #### [facility] [address] [place] [address] Dr. Get Richards 14(COMP METB)on [id number] [Mass/Vol]3.3 g/dL Critically low3.4-5.0The [facility] Hospitalment on above:Performed By: #### BNP, T7, CMP, TSH #### [facility] [address] [place] [address] Dr. Get WhittenAlbumin/Globulin [Mass ratio]1.2 {ratio}NormalThe [facility] on above:Performed By: #### BNP, T7, CMP, TSH #### [facility] [address] [place] [address] Dr. Get Saba [Catalytic activity/Vol]48 U/VZrnusg56-179Vdc [facility] HospitalComment on above:Performed By: #### BNP, T7, CMP, TSH #### [facility] [address] [place] [address] Dr. Get Pichardo [Catalytic activity/Vol]130 U/LCritically akal35-55Wcq [facility] HospitalComment on above:Performed By: #### BNP, T7, CMP, TSH #### [facility] [address] [place] [address] Dr. Gte Torrezon gap [Moles/Vol]11.9 mmol/LNormalThe [facility] Comment on above:Performed By: #### BNP, T7, CMP, TSH #### [facility] [address] [place] [address] Dr. Get WhittenAST [Catalytic activity/Vol]50 U/LCritically urts51-04Mws [facility] HospitalComment on above:Performed By: #### BNP, T7, CMP, TSH #### [facility] [address] [place] [address] Dr. Get WhittenBilirubin [Mass/Vol]0.5 mg/dLNormal0.2-1.0[facility] Comment on above:Performed By: #### BNP, T7, CMP, TSH #### [facility] [address] [place] [address] Dr. Get WhittenCalcium [Mass/Vol]7.9 mg/dLCritically low8.5-10.1The [facility] HospitalComment on above:Performed By: #### BNP, T7, CMP, TSH #### [facility] [address] [place] [address] Dr. Get WhittenChloride [Moles/Vol]99 mmol/FRbvbaq35-918Pax [facility] Comment on above:Performed By: #### BNP, T7, CMP, TSH #### [facility] [address] [place] [address] Dr. Get WhittenCO2 [Moles/Vol]18.4 mmol/LCritically low21.0-32.0The [facility] HospitalComment on above:Performed By: #### BNP, T7, CMP, TSH #### [facility] [address] [place] [address] Dr. Get WhittenCreatinine [Mass/Vol]0.96 mg/dLNormal0.70-1.30The [facility] Hospitalment on above:Performed By: #### BNP, T7, CMP, TSH #### [facility] [address] [place] [address] Dr. Get PaytonGFR-AF TAIWANESE>60Normal>=60The [facility] HospitalComment on above:Performed By: #### BNP, T7, CMP, TSH #### [facility] [address] [place] [address] Dr. Get PaytonGFR-NON AF TAIWANESE>60Normal>=60The [facility] HospitalComment on above:Performed By: #### BNP, T7, CMP, TSH #### [facility] [address] [place] [address] Dr. Get WhittenGlobulin (S) [Mass/Vol]2.8 g/dLNormalThe [facility] HospitalComment on above:Performed By: #### BNP, T7, CMP, TSH #### [facility] [address] [place] [address] Dr. Get WhittenGlucose [Mass/Vol]166 mg/dLCritically qdfk22-450Urw [facility] on above:Performed By: #### BNP, T7, CMP, TSH #### [facility] [address] [place] [address] Dr. Get WhittenPotassium [Moles/Vol]3.3 mmol/LCritically low3.5-5.1The [facility] Hospitalment on above:Performed By: #### BNP, T7, CMP, TSH #### [facility] [address] [place] [address] Dr. Get WhittenProtein [Mass/Vol]6.1 g/dLCritically low6.4-8.2The [facility] HospitalComment on above:Performed By: #### BNP, T7, CMP, TSH #### [facility] [address] [place] [address] Dr. Get Garzaum [Moles/Vol]126 mmol/LCritically foa774-830Ezx [facility] HospitalComment on above:Performed By: #### BNP, T7, CMP, TSH #### [facility] [address] [place] [address] Dr. Get De Jesus nitrogen [Mass/Vol]8.0 mg/dLNormal7.0-18.0The [facility] HospitalComment on above:Performed By: #### BNP, T7, CMP, TSH #### [facility] [address] [place] [address] Dr. Get De Jesus nitrogen/Creatinine [Mass ratio]8.3 mg/mgNormalThe [facility] HospitalComment on above:Performed By: #### BNP, T7, CMP, TSH #### [facility] [address] [place] [address] Dr. Get Dawson 98-32-0619Cplstmbaena peptide B (Bld) [Mass/Vol]274.0 pg/mL Normal<=900.0The [facility] HospitalComment on above:Performed By: #### CMP, HSTROPN, BNP #### [facility] [address] [place] [address] Dr. Get Crockett ANA 3-6on [id number] [Catalytic activity/Vol]48 U/L Yxtysd04-000Tvc [facility] HospitalComment on above:Performed By: #### BNP, T7, CMP, TSH #### [facility] [address] [place] [address] Dr. Get Melara.MB [Mass/Vol]1.62 ng/mLNormal<=3.60The [facility] Comment on above:Performed By: #### BNP, T7, CMP, TSH #### [facility] [address] [place] [address] Dr. Get AndersonOP15.7 pg/mLNormal4.0-76.1The [facility] HospitalComment on above:Result Comment: CUT-OFF POINTS HAVE BEEN ESTABLISHED BASED ON THE FOURTH UNIVERSAL DEFINITIONS OF MYOCARDIAL INFARCTION. THE UPPER REFERENCE LIMIT (URL) OF TROPONIN, DEFINED THE 99TH PERCENTILE OF cTnI DISTRIBUTION IN A REFERENCE POPULATION, HAS BEEN CONFIRMED THE DECISION THRESHOLD FOR SC DIAGNOSIS.Performed By: #### BNP, T7, CMP, TSH #### [facility] [address] [place] [address] Dr. Get Meyer AUTO DIFFon [id number] #0.1 103/ulNormal0.0-0.1The [facility] HospitalComment on above:Performed By: #### CMP #### [facility] [address] [place] [address] Dr. Get WhittenBasophils/100 WBC (Bld)0.8 %Normal0.2-2.0[facility] Comment on above:Performed By: #### CMP #### [facility] [address] [place] [address] Dr. Get Babcock #0.6 103/ulNormal0.0-0.7The [facility] HospitalComment on above: Performed By: #### CMP #### [facility] [address] [place] [address] Dr. Get Paytonosinophils/100 WBC (Bld)5.2 %Normal0.9-7.0[facility] Comment on above:Performed By: #### CMP #### [facility] [address] [place] [address] Dr. Get Paytonrythrocyte distribution width (RBC) [Ratio]12.7 %Wozpsj55.0-15.0 [facility]edoComment on above:Performed By: #### CMP #### [facility] [address] [place] [address] Dr. Get WhittenHematocrit (Bld) [Volume fraction]41.7 %Critically low42.0-54.0 The [facility] HospitalComment on above:Performed By: #### CMP #### [facility] [address] [place] [address] Dr. Get WhittenHemoglobin (Bld) [Mass/Vol]14.9 g/cEUxcsua13.0-18.0The [facility] HospitalComment on above:Performed By: #### CMP #### [facility] [address] [address] [address] Get Sanford #0.48 10e3/ulCritically high0.00-0.03The [facility] Comment on above:Performed By: #### CMP #### [facility] [address] [address] [address] Get Sanford %4.1 %Critically high0.0-0.5The [facility] HospitalComment on above:Performed By: #### CMP #### [facility] [address] [address] [address] Get Otoole #1.4 103/ulNormal1.2-3.8The [facility] HospitalComment on above:Performed By: #### CMP #### [facility] [address] [place] [address] Dr. Get Ramirezhocytes/100 WBC (Bld)11.9 %Critically low20.5-60.0The [facility] HospitalComment on above:Performed By: #### CMP #### [facility] [address] [place] [address] Dr. Get HeadUAL DIFF REQNONormalThe [facility] HospitalComment on above: Performed By: #### CMP #### [facility] [address] [place] [address] Dr. Get Fried (RBC) [Entitic mass]36.8 pgCritically high25.9-34.0The [facility] HospitalComment on above:Performed By: #### CMP #### [facility] [address] [place] [address] Dr. Get Fried (RBC) [Mass/Vol]35.7 g/dLCritically high29.9-35.2The [facility] HospitalComment on above:Performed By: #### CMP #### [facility] [address] [place] [address] Dr. Get Fried (RBC) [Entitic vol]103.0 fLCritically high80.0-94.0The [facility] HospitalComment on above:Performed By: #### CMP #### [facility] [address] [address] [address] Get Bill #0.5 103/ulNormal0.3-0.8The [facility] HospitalComment on above:Performed By: #### CMP #### [facility] [address] [place] [address] Dr. Get Lockettocytes/100 WBC (Bld)4.3 %Normal1.7-12.0[facility] Comment on above:Performed By: #### CMP #### [facility] [address] [place] [address] Dr. Get Falcon #8.6 103/ulCritically high1.4-6.5The [facility] Comment on above:Performed By: #### CMP #### [facility] [address] [place] [address] Dr. Get Andersonutrophils/100 WBC (Bld)73.7 %Vpfpnv84.0-75.0The [facility] HospitalComment on above:Performed By: #### CMP #### [facility] [address] [place] [address] Dr. Get Castro mean volume (Bld) [Entitic vol]9.0 fLCritically low 9.5-13.5The [facility] HospitalComment on above:Performed By: #### CMP #### [facility] [address] [place] [address] Dr. Get WhittenPLT244 103/vxGpljnk594-789Xus [facility] HospitalComment on above: Performed By: #### CMP #### [facility] [address] [place] [address] Dr. Get WhittenRBC4.05 106/ulCritically low4.70-6.10The [facility] HospitalComment on above:Performed By: #### CMP #### [facility] [address] [place] [address] Dr. Get WhittenWBC11.7 103/ulCritically high4.0-11.0The [facility] HospitalComment on above:Performed By: #### CMP #### [facility] [address] [address] [address] Get WhittenCRJuvencio 43-19-6485TOJ2.3 mg/dLNormal<=1.0The [facility] Comment on above:Performed By: #### CMP, HSTROPN, BNP #### [facility] [address] [place] [address] Dr. Get WhittenCULTURE SPUTUMon 37-75-7514DLTSKGE SPUTUMCulture Observations: METHICILLIN RESISTANT STAPH AUREUS ISOLATED. [...] <=10 S F Oxacillin >=4 R FNormalThe [facility] HospitalComment on above:Performed By: #### BNP, T7, CMP, TSH #### [facility] [address] [place] [address] Dr. Get PaytonSALEM [facility] LIMITED STUDYon [id number] LIMITED STUDYPatient: REHAN TREJOBrennan Exam Date: 03/30/2022 : 1965 Gender:M Ordering : DR PEE LAKHANI . Admission #: [id number] Family : Order #: [id number] CLICK HERE TO VIEW EXAM ECHOCARDIOGRAM REPORT [...] by: Arik Dominguez M.D. on 03/31/2022 at 19:42Corey HospitalPROF 14(COMP METB)on [id number] [Mass/Vol]3.5 g/dLNormal3.4-5.0 The [facility] HospitalComment on above:Performed By: #### CMP, HSTROPN, BNP #### [facility] [address] [address] [address] Get WhittenAlbumin/Globulin [Mass ratio]1.2 {ratio}NormalThe [facility] HospitalComment on above:Performed By: #### CMP, HSTROPN, BNP #### [facility] [address] [place], [place] [address] [address]. Get MartinezP [Catalytic activity/Vol]58 U/AMvicwc77-065Rpd [facility] HospitalComment on above:Performed By: #### CMP, HSTROPN, BNP #### [facility] [address] [address] [address] Get Pichardo [Catalytic activity/Vol]108 U/LCritically fnfw45-14Wco [facility] HospitalComment on above:Performed By: #### CMP, HSTROPN, BNP #### [facility] [address] [place] [address] Dr. Get Crow gap [Moles/Vol]12.6 mmol/LNormalThe [facility] Comment on above:Performed By: #### CMP, HSTROPN, BNP #### [facility] [address] [place] [address] Dr. Get Fierro [Catalytic activity/Vol]33 U/LXgnvco56-05Hfc [facility] HospitalComment on above:Performed By: #### CMP, HSTROPN, BNP #### [facility] [address] [place] [address] Dr. Get WhittenBilirubin [Mass/Vol]0.6 mg/dLNormal0.2-1.0[facility] Comment on above:Performed By: #### CMP, HSTROPN, BNP #### [facility] [address] [place] [address] Dr. Get WhittenCalcium [Mass/Vol]8.0 mg/dLCritically low8.5-10.1[facility]edoComment on above:Performed By: #### CMP, HSTROPN, BNP #### [facility] [address] [place] [address] Dr. Get WhittenChloride [Moles/Vol]99 mmol/FMxwdmb77-657Bcf [facility] Comment on above:Performed By: #### CMP, HSTROPN, BNP #### [facility] [address] [place] [address] Dr. Get WhittenCO2 [Moles/Vol]22.0 mmol/IQomvxg84.0-32.0[facility] Comment on above:Performed By: #### CMP, HSTROPN, BNP #### [facility] [address] [address] [address] Get WhittenCreatinine [Mass/Vol]1.12 mg/dLNormal0.70-1.30The [facility] HospitalComment on above:Performed By: #### CMP, HSTROPN, BNP #### [facility] [address] [place] [address] Dr. Get PaytonGFR-AF TAIWANESE>60Normal>=60The [facility] HospitalComment on above:Performed By: #### CMP, HSTROPN, BNP #### [facility] [address] [place] [address] Dr. Get PaytonGFR-NON AF TAIWANESE>60Normal>=60The [facility] HospitalComment on above:Performed By: #### CMP, HSTROPN, BNP #### [facility] [address] [place] [address] Dr. Get WhittenGlobulin (S) [Mass/Vol]3.0 g/dLNormalThe [facility] HospitalComment on above:Performed By: #### CMP, HSTROPN, BNP #### [facility] [address] [place] [address] Dr. Get WhittenGlucose [Mass/Vol]135 mg/dLCritically wfzm90-332Mte [facility] Hospitalment on above:Performed By: #### CMP, HSTROPN, BNP #### [facility] [address] [place] [address] Dr. Get WhittenPotassium [Moles/Vol]3.6 mmol/LNormal3.5-5.1The [facility] Comment on above:Performed By: #### CMP, HSTROPN, BNP #### [facility] [address] [place] [address] Dr. Get WhittenProtein [Mass/Vol]6.5 g/dLNormal6.4-8.2The [facility] Comment on above:Performed By: #### CMP, HSTROPN, BNP #### [facility] [address] [place] [address] Dr. Get Garzaum [Moles/Vol]130 mmol/LCritically uua583-306Car [facility] HospitalComment on above:Performed By: #### CMP, HSTROPN, BNP #### [facility] [address] [place] [address] Dr. Get De Jesus nitrogen [Mass/Vol]7.0 mg/dLNormal7.0-18.0The [facility] HospitalComment on above:Performed By: #### CMP, HSTROPN, BNP #### [facility] [address] [place] [address] Dr. Get De Jesus nitrogen/Creatinine [Mass ratio]6.2 mg/mgNormalThe [facility] HospitalComment on above:Performed By: #### CMP, HSTROPN, BNP #### [facility] [address] [place] [address] Dr. Get PEREZ 3-6on 19-35-3187MT [Catalytic activity/Vol]51 U/L Zxvobp45-502Trt [facility] HospitalComment on above:Performed By: #### CVDTBH #### [facility] [address] [place] [address] Dr. Get Melara.MB [Mass/Vol]1.89 ng/mLNormal<=3.60The [facility] Comment on above:Performed By: #### CVDTBH #### [facility] [address] [place] [address] Dr. Get WhittenHSTROP14.4 pg/mLNormal4.0-76.1The [facility] HospitalComment on above:Result Comment: CUT-OFF POINTS HAVE BEEN ESTABLISHED BASED ON THE FOURTH UNIVERSAL DEFINITIONS OF MYOCARDIAL INFARCTION. THE UPPER REFERENCE LIMIT (URL) OF TROPONIN, DEFINED THE 99TH PERCENTILE OF cTnI DISTRIBUTION IN A REFERENCE POPULATION, HAS BEEN CONFIRMED THE DECISION THRESHOLD FOR SC DIAGNOSIS.Performed By: #### CVDTBH #### [facility] [address] [place] [address] Dr. Get PEREZ ADMITon [id number] [Catalytic activity/Vol]128 U/L Ouyvmf41-278Diy [facility] HospitalComment on above:Performed By: #### CMP, HSTROPN, BNP #### [facility] [address] [place] [address] Dr. Get Melara.MB [Mass/Vol]2.22 ng/mLNormal<=3.60[facility] Comment on above:Performed By: #### CMP, HSTROPN, BNP #### [facility] [address] [place] [address] Dr. Get WhittenHSTROP11.2 pg/mLNormal4.0-76.1[facility] on above:Result Comment: CUT-OFF POINTS HAVE BEEN ESTABLISHED BASED ON THE FOURTH UNIVERSAL DEFINITIONS OF MYOCARDIAL INFARCTION. THE UPPER REFERENCE LIMIT (URL) OF TROPONIN, DEFINED THE 99TH PERCENTILE OF cTnI DISTRIBUTION IN A REFERENCE POPULATION, HAS BEEN CONFIRMED THE DECISION THRESHOLD FOR SC DIAGNOSIS.Performed By: #### CMP, HSTROPN, BNP #### [facility] [address] [place] [address] Dr. Get SinghO40 ng/uEImbkmn34-16BgrMount St. [facility] on above: Performed By: #### CMP, HSTROPN, BNP #### [facility] [address] [place] [address] Dr. Get Meyer AUTO DIFFon [id number] #0.1 103/ulNormal0.0-0.1The [facility] Systemment on above:Performed By: #### OSMOU #### [facility] [address] [place] [address] Dr. Get WhittenBasophils/100 WBC (Bld)0.4 %Normal0.2-2.0[facility] Comment on above:Performed By: #### OSMOU #### [facility] [address] [place] [address] Dr. Get Babcock #0.0 103/ulNormal0.0-0.7The [facility] on above: Performed By: #### OSMOU #### [facility] [address] [place] [address] Dr. Get Paytonosinophils/100 WBC (Bld)0.1 %Critically low0.9-7.0The [facility] Hospitalment on above:Performed By: #### OSMOU #### [facility] [address] [place] [address] Dr. Get Paytonrythrocyte distribution width (RBC) [Ratio]12.8 %Epqxaj43.0-15.0 The [facility] HospitalComment on above:Performed By: #### OSMOU #### [facility] [address] [place] [address] Dr. Get WhittenHematocrit (Bld) [Volume fraction]42.1 %Qnqtwh13.0-54.0The [facility] HospitalComment on above:Performed By: #### OSMOU #### [facility] [address] [place] [address] Dr. Get WhittenHemoglobin (Bld) [Mass/Vol]15.3 g/iBTwqqik12.0-18.0The [facility] HospitalComment on above:Performed By: #### OSMOU #### [facility] [address] [place] [address] Dr. Get Sanford #0.49 10e3/ulCritically high0.00-0.03The [facility] Comment on above:Performed By: #### OSMOU #### [facility] [address] [place] [address] Dr. Get Sanford %3.6 %Critically high0.0-0.5The [facility] HospitalComment on above:Performed By: #### OSMOU #### [facility] [address] [place] [address] Dr. Get HargroveMPH #2.2 103/ulNormal1.2-3.8The [facility] HospitalComment on above:Performed By: #### OSMOU #### [facility] [address] [place] [address] Dr. Get Hargrovemphocytes/100 WBC (Bld)16.1 %Critically low20.5-60.0The [facility] HospitalComment on above:Performed By: #### OSMOU #### [facility] [address] [place] [address] Dr. Get Ace DIFF REQNONormalThe [facility] HospitalComment on above: Performed By: #### OSMOU #### [facility] [address] [place] [address] Dr. Get Fried (RBC) [Entitic mass]36.3 pgCritically high25.9-34.0The [facility] HospitalComment on above:Performed By: #### OSMOU #### [facility] [address] [place] [address] Dr. Get Fried (RBC) [Mass/Vol]36.3 g/dLCritically high29.9-35.2The [facility] HospitalComment on above:Performed By: #### OSMOU #### [facility] [address] [place] [address] Dr. Get Fried (RBC) [Entitic vol]100.0 fLCritically high80.0-94.0[facility]edoComment on above:Performed By: #### OSMOU #### [facility] [address] [place] [address] Dr. Get Bill #1.1 103/ulCritically high0.3-0.8ThSt. [facility] Comment on above:Performed By: #### OSMOU #### [facility] [address] [place] [address] Dr. Get Lockettocytes/100 WBC (Bld)8.3 %Normal1.7-12.0[facility] Comment on above:Performed By: #### OSMOU #### [facility] [address] [place] [address] Dr. Get Falcon #9.6 103/ulCritically high1.4-6.5ThSt. [facility]'s [facility] Comment on above:Performed By: #### OSMOU #### [facility] [address] [place] [address] Dr. Get Andersonutrophils/100 WBC (Bld)71.5 %Ypfyzi88.0-75.0The [facility] HospitalComment on above:Performed By: #### OSMOU #### [facility] [address] [address] [address] Get WhittenPlatelet mean volume (Bld) [Entitic vol]9.1 fLCritically low 9.5-13.5The [facility] HospitalComment on above:Performed By: #### OSMOU #### [facility] [address] [address] [address] Get WhittenPLT228 103/sbRokirl440-746Kic [facility] HospitalComment on above: Performed By: #### OSMOU #### [facility] [address] [place] [address] Dr. Get WhittenRBC4.21 106/ulCritically low4.70-6.10The [facility] on above:Performed By: #### OSMOU #### [facility] [address] [place] [address] Dr. Get WhittenWBC13.4 103/ulCritically high4.0-11.0The [facility] Hospitalment on above:Performed By: #### OSMOU #### [facility] [address] [place] [address] Dr. Get WhittenCovibaljeet-19 PCR (CVDTB)on 41-49-3575GCUR-CoV-2 (COVID-19) RNA ASHLEE+probe Ql (Unsp spec)DetectedCritically abnormalNOT DETECTEDThe [facility] on above:Result Comment: This test is not yet approved or cleared by the [place] FDA. When there are no FDA-approved or cleared tests available, and other criteria are met, FDA can make tests available under an emergency access mechanism called an Emergency Use Authorization (EUA). The EUA for this test is supported by the [place] of [employer] and [employer] Service's declaration that [...] longer be used).Performed By: #### CVDTBH #### [facility] [address] [address] [address] Get WhittenOSMOLALITYon 26-11-5129Bqewbgtzyu [Osmolality]257 mosm/kg Critically uni058-372WntRegency Hospital ToledoComment on above:Performed By: #### CVDTBH #### [facility] [address] [address] [address] Get WhittenOSMOLALITY URINEon 14-32-5725Vmiagkdlvn, Bwccz355 mOsmol/kgNormal The [facility] HospitalComment on above:Result Comment: 24 hr : 300 - 900 Random: 50 - 1400 After 12hr fluid restriction: >850Performed By: #### OSMOU #### [facility] [address] [place] [address] Dr. Get WhittenPROF CHEM 8 (BAS METB)on 33-40-0123Kkyfo gap [Moles/Vol]17.1 mmol/LNormalThe [facility] HospitalComment on above:Performed By: #### CMP, HSTROPN, BNP #### [facility] [address] [place] [address] Dr. Get WhittenCalcium [Mass/Vol]8.4 mg/dLCritically low8.5-10.1The [facility] HospitalComment on above:Performed By: #### CMP, HSTROPN, BNP #### [facility] [address] [place] [address] Dr. Get WhittenChloride [Moles/Vol]98 mmol/BQujlqf30-742Pkh [facility] Comment on above:Performed By: #### CMP, HSTROPN, BNP #### [facility] [address] [place] [address] Dr. Get WhittenCO2 [Moles/Vol]18.1 mmol/LCritically low21.0-32.0The [facility] HospitalComment on above:Performed By: #### CMP, HSTROPN, BNP #### [facility] [address] [place] [address] Dr. Get WhittenCreatinine [Mass/Vol]0.98 mg/dLNormal0.70-1.30The [facility] HospitalComment on above:Performed By: #### CMP, HSTROPN, BNP #### [facility] [address] [address] [address] Get PaytonGFR-AF TAIWANESE>60Normal>=60The [facility] HospitalComment on above:Performed By: #### CMP, HSTROPN, BNP #### [facility] [address] [address] [address] Get PaytonGFR-NON AF TAIWANESE>60Normal>=60The [facility] HospitalComment on above:Performed By: #### CMP, HSTROPN, BNP #### [facility] [address] [place] [address] Dr. Get WhittenGlucose [Mass/Vol]94 mg/lUQijews93-016Twg [facility] Comment on above:Performed By: #### CMP, HSTROPN, BNP #### [facility] [address] [place] [address] Dr. Get WhittenPotassium [Moles/Vol]4.2 mmol/LNormal3.5-5.1The [facility] Comment on above:Performed By: #### CMP, HSTROPN, BNP #### [facility] [address] [place] [address] Dr. Get WhittenSodium [Moles/Vol]129 mmol/LCritically ubn182-610Fui [facility] HospitalComment on above:Performed By: #### CMP, HSTROPN, BNP #### [facility] [address] [place] [address] Dr. Get WhittenUrea nitrogen [Mass/Vol]8.0 mg/dLNormal7.0-18.0The [facility] HospitalComment on above:Performed By: #### CMP, HSTROPN, BNP #### [facility] [address] [place] [address] Dr. Get WhittenUrea nitrogen/Creatinine [Mass ratio]8.2 mg/mgNormalThe [facility] HospitalComment on above:Performed By: #### CMP, HSTROPN, BNP #### [facility] [address] [place] [address] Dr. Get Morgan CHEST 1 Von [id number] CHEST 1 VEXAM: XR CHEST 1 V [...] Electronically authenticated by: GARETH ROMERO Date: 2022-03-29 18:30[facility] 79-03-7643Puryrcguaql peptide B (Bld) [Mass/Vol]401.0 pg/mLNormal<=900.0The [facility] HospitalComment on above:Performed By: #### BNP, T7, CMP, TSH #### [facility] [address] [place] [address] Dr. Get Meyer W MANUAL DIFFon 34-61-9713CUFJBBEU LYMPH #NormalThe [facility] HospitalComment on above:Performed By: #### BNP, T7, CMP, TSH #### [facility] [address] [place] [address] Dr. Get WhittenATYPICAL LYMPH %NormalThe [facility] HospitalComment on above: Performed By: #### BNP, T7, CMP, TSH #### [facility] [address] [place] [address] Dr. Get Day #0.3 103/ulNormal0.0-0.3The [facility] HospitalComment on above:Performed By: #### BNP, T7, CMP, TSH #### [facility] [address] [place] [address] Dr. Get Day %2 %Normal0-5The [facility] HospitalComment on above:Performed By: #### BNP, T7, CMP, TSH #### [facility] [address] [place] [address] Dr. Yilan ChangBASOM #0.00 103/ulNormal0.00-0.10The [facility] HospitalComment on above:Performed By: #### BNP, T7, CMP, TSH #### [facility] [address] [place] [address] Dr. Get Aceves %0.0 %Critically low0.2-2.0The [facility] HospitalComment on above:Performed By: #### BNP, T7, CMP, TSH #### [facility] [address] [place] [address] Dr. Get Wing #NormalRegency Hospital ToledoComment on above:Performed By: #### BNP, T7, CMP, TSH #### [facility] [address] [place] [address] Dr. Get Wing %NormalThe [facility] HospitalComment on above:Performed By: #### BNP, T7, CMP, TSH #### [facility] [address] [place] [address] Dr. Get WhittenCORRECTED WBCNormal4.0-11.0The [facility] HospitalComment on above: Performed By: #### BNP, T7, CMP, TSH #### [facility] [address] [place] [address] Dr. Get Kendrick #0.00 103/ulNormal0.00-0.70The [facility] HospitalCompine rest [facility] on above:Performed By: #### BNP, T7, CMP, TSH #### [facility] [address] [place] [address] Dr. Get Kendrick%0.0 %Critically low0.9-7.0The [facility] HospitalComment on above:Performed By: #### BNP, T7, CMP, TSH #### [facility] [address] [place] [address] Dr. Get WhittenHCT36.3 %Critically low42.0-54.0The [facility] HospitalComment on above:Performed By: #### BNP, T7, CMP, TSH #### [facility] [address] [place] [address] Dr. Get WhittenHGB12.9 g/dlCritically low14.0-18.0The [facility] HospitalComment on above:Performed By: #### BNP, T7, CMP, TSH #### [facility] [address] [place] [address] Dr. Get Gabriel [facility] - AndersonComment on above: Performed By: #### BNP, T7, CMP, TSH #### [facility] [address] [place] [address] Dr. Get Villarreal #0.89 103/ulCritically low1.20-3.80The [facility] Comment on above:Performed By: #### BNP, T7, CMP, TSH #### [facility] [address] [place] [address] Dr. Get Villarreal%7.0 %Critically low20.5-60.0The [facility] HospitalComment on above:Performed By: #### BNP, T7, CMP, TSH #### [facility] [address] [place] [address] Dr. Get FriedH36.5 pgCritically high25.9-34.0The [facility] HospitalComment on above:Performed By: #### BNP, T7, CMP, TSH #### [facility] [address] [place] [address] Dr. Get FriedHC35.5 g/dlCritically high29.9-35.2The [facility] HospitalComment on above:Performed By: #### BNP, T7, CMP, TSH #### [facility] [address] [place] [address] Dr. Get FriedV102.8 fLCritically high80.0-94.0The [facility] HospitalComment on above:Performed By: #### BNP, T7, CMP, TSH #### [facility] [address] [place] [address] Dr. Get Heredia #NormalThe Memorial [facility] HospitalComment on above: Performed By: #### BNP, T7, CMP, TSH #### [facility] [address] [place] [address] Dr. Get Heredia %NormalRegency Hospital ToledoComment on above: Performed By: #### BNP, T7, CMP, TSH #### [facility] [address] [place] [address] Dr. Get Leyva#1.02 103/ulCritically high0.30-0.80The [facility] on above:Performed By: #### BNP, T7, CMP, TSH #### [facility] [address] [place] [address] Dr. Get Leyva%8.0 %Normal1.7-12.0The [facility] HospitalComment on above: Performed By: #### BNP, T7, CMP, TSH #### [facility] [address] [place] [address] Dr. Get RivasV9.1 fLCritically low9.5-13.5The [facility] HospitalComment on above:Performed By: #### BNP, T7, CMP, TSH #### [facility] [address] [place] [address] Dr. Get Kasper #NormalRegency Hospital ToledoComment on above:Performed By: #### BNP, T7, CMP, TSH #### [facility] [address] [place] [address] Dr. Get CaryOCYTE %NormalThe [facility] HospitalComment on above:Performed By: #### BNP, T7, CMP, TSH #### [facility] [address] [place] [address] Dr. Get ConnBCNormalThe [facility] HospitalComment on above:Performed By: #### BNP, T7, CMP, TSH #### [facility] [address] [place] [address] Dr. Get WhittenPLT181 103/gaNzxvns733-856Whx [facility] on above: Performed By: #### BNP, T7, CMP, TSH #### [facility] [address] [place] [address] Dr. Get WhittenRBC3.53 106/ulCritically low4.70-6.10The [facility] HospitalComment on above:Performed By: #### BNP, T7, CMP, TSH #### [facility] [address] [address] [address] Get De Guzman12.7 %Sfpskf87.0-15.0The [facility] HospitalComment on above: Performed By: #### BNP, T7, CMP, TSH #### [facility] [address] [place] [address] Dr. Get Kimble #10.54 103/ulCritically high1.40-6.50The [facility] Comment on above:Performed By: #### BNP, T7, CMP, TSH #### [facility] [address] [place] [address] Dr. Get Kimble %83.0 %Critically high43.0-75.0The [facility] on above:Performed By: #### BNP, T7, CMP, TSH #### [facility] [address] [place] [address] Dr. Get ShepherdBC12.7 103/ulCritically high4.0-11.0The [facility] Hospitalment on above:Performed By: #### BNP, T7, CMP, TSH #### [facility] [address] [place] [address] Dr. Get Richards 14(COMP METB)on [id number] [Mass/Vol]3.0 g/dL Critically low3.4-5.0The [facility] Hospitalment on above:Performed By: #### BNP, T7, CMP, TSH #### [facility] [address] [place] [address] Dr. Get WhittenAlbumin/Globulin [Mass ratio]1.2 {ratio}NormalThe [facility] on above:Performed By: #### BNP, T7, CMP, TSH #### [facility] [address] [place] [address] Dr. Get Saba [Catalytic activity/Vol]39 U/LCritically wle66-881Lvr [facility] Hospitalment on above:Performed By: #### BNP, T7, CMP, TSH #### [facility] [address] [address] [address] Get MartinezT [Catalytic activity/Vol]94 U/LCritically remx21-01Syk [facility] HospitalComment on above:Performed By: #### BNP, T7, CMP, TSH #### [facility] [address] [address] [address] Get Torrezon gap [Moles/Vol]11.4 mmol/LNormalThe [facility] Comment on above:Performed By: #### BNP, T7, CMP, TSH #### [facility] [address] [address] [address] Get WhittenAST [Catalytic activity/Vol]37 U/SQxrdit97-50Pba [facility] HospitalComment on above:Performed By: #### BNP, T7, CMP, TSH #### [facility] [address] [address] [address] Get WhittenBilirubin [Mass/Vol]0.4 mg/dLNormal0.2-1.0The [facility] Comment on above:Performed By: #### BNP, T7, CMP, TSH #### [facility] [address] [address] [address] Get WhittenCalcium [Mass/Vol]7.9 mg/dLCritically low8.5-10.1[facility] Hospital ToledoComment on above:Performed By: #### BNP, T7, CMP, TSH #### [facility] [address] [address] [address] Get WhittenChloride [Moles/Vol]102 mmol/BQykvum69-051Mhm [facility] Comment on above:Performed By: #### BNP, T7, CMP, TSH #### [facility] [address] [address] [address] Get WhittenCO2 [Moles/Vol]21.0 mmol/CDlqyhz76.0-32.0The [facility] Comment on above:Performed By: #### BNP, T7, CMP, TSH #### [facility] [address] [address] [address] Get WhittenCreatinine [Mass/Vol]1.07 mg/dLNormal0.70-1.30The [facility] HospitalComment on above:Performed By: #### BNP, T7, CMP, TSH #### [facility] [address] [place] [address] Dr. Get PaytonGFR-AF TAIWANESE>86Normal>=60The [facility] HospitalComment on above:Performed By: #### BNP, T7, CMP, TSH #### [facility] [address] [place] [address] Dr. Get PaytonGFR-NON AF TAIWANESE>60Normal>=60The [facility] HospitalComment on above:Performed By: #### BNP, T7, CMP, TSH #### [facility] [address] [place] [address] Dr. Get WhittenGlobulin (S) [Mass/Vol]2.6 g/dLNormalThe [facility] HospitalComment on above:Performed By: #### BNP, T7, CMP, TSH #### [facility] [address] [place] [address] Dr. Get WhittenGlucose [Mass/Vol]132 mg/dLCritically nvqt40-973Ohc [facility] HospitalComment on above:Performed By: #### BNP, T7, CMP, TSH #### [facility] [address] [place] [address] Dr. Get WhittenPotassium [Moles/Vol]3.4 mmol/LCritically low3.5-5.1The [facility] HospitalComment on above:Performed By: #### BNP, T7, CMP, TSH #### [facility] [address] [place] [address] Dr. Get WhittenProtein [Mass/Vol]5.6 g/dLCritically low6.4-8.2The [facility] HospitalComment on above:Performed By: #### BNP, T7, CMP, TSH #### [facility] [address] [place] [address] Dr. Get WhittenSodium [Moles/Vol]131 mmol/LCritically jtw269-796Rho [facility] HospitalComment on above:Performed By: #### BNP, T7, CMP, TSH #### [facility] [address] [place] [address] Dr. Get De Jesus nitrogen [Mass/Vol]16.0 mg/dLNormal7.0-18.0The [facility] on above:Performed By: #### BNP, T7, CMP, TSH #### [facility] [address] [place] [address] Dr. Get De Jesus nitrogen/Creatinine [Mass ratio]15.0 mg/mgNormalThe [facility] HospitalComment on above:Performed By: #### BNP, T7, CMP, TSH #### [facility] [address] [place] [address] Dr. Get WhittenT3, TOTAL (TRIIODOTHYRONINE)on [id number], TOTAL<20Critically lnd38-933Rka [facility] Hospitalment on above:Performed By: #### CMP, HSTROPN, BNP #### [facility] [address] [place] [address] Dr. Get WhittenT4 LABCORPon [id number] [Mass/Vol]0.7 ug/dLInvalid Interpretation Code4.5-12.0The [facility] on above:Performed By: #### CVDTBH #### [facility] [address] [place] [address] Dr. Get Dawson [id number] peptide B (Bld) [Mass/Vol]340.0 pg/mL Normal<=900.0The [facility] on above:Performed By: #### BNP, T7, CMP, TSH #### [facility] [address] [place] [address] Dr. Get Meyer AUTO DIFFon [id number] #0.0 103/ulNormal0.0-0.1The [facility] on above:Performed By: #### CMP, HSTROPN, BNP #### [facility] [address] [place] [address] Dr. Get WhittenBasophils/100 WBC (Bld)0.1 %Critically low0.2-2.0The [facility] HospitalComment on above:Performed By: #### CMP, HSTROPN, BNP #### [facility] [address] [place] [address] Dr. Get Babcock #0.0 103/ulNormal0.0-0.7The [facility] HospitalComment on above: Performed By: #### CMP, HSTROPN, BNP #### [facility] [address] [place] [address] Dr. Get Paytonosinophils/100 WBC (Bld)0.1 %Critically low0.9-7.0The [facility] HospitalComment on above:Performed By: #### CMP, HSTROPN, BNP #### [facility] [address] [place] [address] Dr. Get Paytonrythrocyte distribution width (RBC) [Ratio]12.7 %Nwnaoq12.0-15.0 The [facility] HospitalComment on above:Performed By: #### CMP, HSTROPN, BNP #### [facility] [address] [place] [address] Dr. Get WhittenHematocrit (Bld) [Volume fraction]38.7 %Critically low42.0-54.0 The [facility] HospitalComment on above:Performed By: #### CMP, HSTROPN, BNP #### [facility] [address] [place] [address] Dr. Get WhittenHemoglobin (Bld) [Mass/Vol]13.6 g/dLCritically low14.0-18.0The [facility] Hospitalment on above:Performed By: #### CMP, HSTROPN, BNP #### [facility] [address] [place] [address] Dr. Get Sanford #1.95 10e3/ulCritically high0.00-0.03The [facility] Comment on above:Performed By: #### CMP, HSTROPN, BNP #### [facility] [address] [place] [address] Dr. Get Sanford %16.0 %Critically high0.0-0.5The [facility] HospitalComment on above:Performed By: #### CMP, HSTROPN, BNP #### [facility] [address] [place] [address] Dr. Get Otoole #1.7 103/ulNormal1.2-3.8The [facility] HospitalComment on above:Performed By: #### CMP, HSTROPN, BNP #### [facility] [address] [place] [address] Dr. Get Ramirezhocytes/100 WBC (Bld)13.8 %Critically low20.5-60.0The [facility] HospitalComment on above:Performed By: #### CMP, HSTROPN, BNP #### [facility] [address] [place] [address] Dr. Get HeadUAL DIFF REQNONormalThe [facility] HospitalComment on above: Performed By: #### CMP, HSTROPN, BNP #### [facility] [address] [place] [address] Dr. Get Fried (RBC) [Entitic mass]36.2 pgCritically high25.9-34.0The [facility] HospitalComment on above:Performed By: #### CMP, HSTROPN, BNP #### [facility] [address] [place] [address] Dr. Get Fried (RBC) [Mass/Vol]35.1 g/nRNprctd38.9-35.2The [facility] HospitalComment on above:Performed By: #### CMP, HSTROPN, BNP #### [facility] [address] [place] [address] Dr. Get Fried (RBC) [Entitic vol]102.9 fLCritically high80.0-94.0The [facility] HospitalComment on above:Performed By: #### CMP, HSTROPN, BNP #### [facility] [address] [place] [address] Dr. Get Bill #0.4 103/ulNormal0.3-0.8The [facility] HospitalComment on above:Performed By: #### CMP, HSTROPN, BNP #### [facility] [address] [place] [address] Dr. Get Lockettocytes/100 WBC (Bld)3.3 %Normal1.7-12.0The [facility] Comment on above:Performed By: #### CMP, HSTROPN, BNP #### [facility] [address] [place] [address] Dr. Get Falcon #8.2 103/ulCritically high1.4-6.5The [facility] Comment on above:Performed By: #### CMP, HSTROPN, BNP #### [facility] [address] [place] [address] Dr. Get Andersonutrophils/100 WBC (Bld)66.7 %Usfdqu34.0-75.0The [facility] HospitalComment on above:Performed By: #### CMP, HSTROPN, BNP #### [facility] [address] [place] [address] Dr. Get WhittenPlatelet mean volume (Bld) [Entitic vol]9.2 fLCritically low 9.5-13.5The [facility] HospitalComment on above:Performed By: #### CMP, HSTROPN, BNP #### [facility] [address] [place] [address] Dr. Get WhittenPLT167 103/aqIicmcb211-003Pci [facility] HospitalComment on above: Performed By: #### CMP, HSTROPN, BNP #### [facility] [address] [place] [address] Dr. Get WhittenRBC3.76 106/ulCritically low4.70-6.10The [facility] HospitalComment on above:Performed By: #### CMP, HSTROPN, BNP #### [facility] [address] [place] [address] Dr. Get WhittenWBC12.2 103/ulCritically high4.0-11.0The [facility] HospitalComment on above:Performed By: #### CMP, HSTROPN, BNP #### [facility] [address] [address] [address] Get Richards 14(COMP METB)on [id number] [Mass/Vol]3.1 g/dL Critically low3.4-5.0The [facility] HospitalComment on above:Performed By: #### BNP, T7, CMP, TSH #### [facility] [address] [address] [address] Get WhittenAlbumin/Globulin [Mass ratio]1.1 {ratio}NormalThe [facility] HospitalComment on above:Performed By: #### BNP, T7, CMP, TSH #### [facility] [address] [place] [address] Dr. Get MartinezP [Catalytic activity/Vol]44 U/LCritically nwv59-926Ixp [facility] Hospitalment on above:Performed By: #### BNP, T7, CMP, TSH #### [facility] [address] [place] [address] Dr. Get Pichardo [Catalytic activity/Vol]87 U/LCritically jgfa65-20Wgd [facility] HospitalComment on above:Performed By: #### BNP, T7, CMP, TSH #### [facility] [address] [place] [address] Dr. Get Crow gap [Moles/Vol]12.6 mmol/LNormalThe [facility] Comment on above:Performed By: #### BNP, T7, CMP, TSH #### [facility] [address] [place] [address] Dr. Get WhittenAST [Catalytic activity/Vol]38 U/LCritically mdjw37-22Pjk [facility] HospitalComment on above:Performed By: #### BNP, T7, CMP, TSH #### [facility] [address] [place] [address] Dr. Get WhittenBilirubin [Mass/Vol]0.4 mg/dLNormal0.2-1.0The [facility] Comment on above:Performed By: #### BNP, T7, CMP, TSH #### [facility] [address] [address] [address] Get WhittenCalcium [Mass/Vol]7.7 mg/dLCritically low8.5-10.1The [facility] HospitalComment on above:Performed By: #### BNP, T7, CMP, TSH #### [facility] [address] [place] [address] Dr. Get WhittenChloride [Moles/Vol]97 mmol/LCritically cfv78-872Fwf [facility] HospitalComment on above:Performed By: #### BNP, T7, CMP, TSH #### [facility] [address] [place] [address] Dr. Get WhittenCO2 [Moles/Vol]22.1 mmol/GCqbvxr84.0-32.0The [facility] Comment on above:Performed By: #### BNP, T7, CMP, TSH #### [facility] [address] [place] [address] Dr. Get WhittenCreatinine [Mass/Vol]1.17 mg/dLNormal0.70-1.30The [facility] HospitalComment on above:Performed By: #### BNP, T7, CMP, TSH #### [facility] [address] [place] [address] Dr. Get PaytonGFR-AF TAIWANESE>60Normal>=60The [facility] HospitalComment on above:Performed By: #### BNP, T7, CMP, TSH #### [facility] [address] [place] [address] Dr. Get PaytonGFR-NON AF TAIWANESE>60Normal>=60The [facility] Hospitalment on above:Performed By: #### BNP, T7, CMP, TSH #### [facility] [address] [place] [address] Dr. Get WhittenGlobulin (S) [Mass/Vol]2.7 g/dLNormalThe [facility] HospitalComment on above:Performed By: #### BNP, T7, CMP, TSH #### [facility] [address] [place] [address] Dr. Get WhittenGlucose [Mass/Vol]165 mg/dLCritically cdwv00-429Nfr [facility] HospitalComment on above:Performed By: #### BNP, T7, CMP, TSH #### [facility] [address] [address] [address] Get WhittenPotassium [Moles/Vol]3.7 mmol/LNormal3.5-5.1The [facility] Comment on above:Performed By: #### BNP, T7, CMP, TSH #### [facility] [address] [address] [address] Get WhittenProtein [Mass/Vol]5.8 g/dLCritically low6.4-8.2The [facility] HospitalComment on above:Performed By: #### BNP, T7, CMP, TSH #### [facility] [address] [address] [address] Get Oharadium [Moles/Vol]128 mmol/LCritically vzx681-857Oce [facility] HospitalComment on above:Performed By: #### BNP, T7, CMP, TSH #### [facility] [address] [address] [address] Get WhittenUrea nitrogen [Mass/Vol]17.0 mg/dLNormal7.0-18.0The [facility] HospitalComment on above:Performed By: #### BNP, T7, CMP, TSH #### [facility] [address] [address] [address] Get WhittenUrea nitrogen/Creatinine [Mass ratio]14.5 mg/mgNormalThe [facility] HospitalComment on above:Performed By: #### BNP, T7, CMP, TSH #### [facility] [address] [place] [address] Dr. Get Turner RANDOM URINEon [id number] (U) [Moles/Vol]6 mmol/L Critically xko99-23Ene [facility] HospitalComment on above:Performed By: #### BNP, T7, CMP, TSH #### [facility] [address] [place] [address] Dr. Get Dawson [id number] peptide B (Bld) [Mass/Vol]472.0 pg/mL Normal<=900.0[facility]edoComment on above:Performed By: #### CMP, HSTROPN, BNP #### [facility] [address] [place] [address] Dr. Get Crockett ANA 3-6on [id number] [Catalytic activity/Vol]53 U/L Rryjax74-290Ogz [facility] HospitalComment on above:Performed By: #### CVDTBH #### [facility] [address] [place] [address] Dr. Get Melara.MB [Mass/Vol]1.61 ng/mLNormal<=3.60[facility] Comment on above:Performed By: #### CVDTBH #### [facility] [address] [place] [address] Dr. Get Mckay20.2 pg/mLNormal4.0-76.1The [facility] HospitalCompine rest [facility] on above:Result Comment: CUT-OFF POINTS HAVE BEEN ESTABLISHED BASED ON THE FOURTH UNIVERSAL DEFINITIONS OF MYOCARDIAL INFARCTION. THE UPPER REFERENCE LIMIT (URL) OF TROPONIN, DEFINED THE 99TH PERCENTILE OF cTnI DISTRIBUTION IN A REFERENCE POPULATION, HAS BEEN CONFIRMED THE DECISION THRESHOLD FOR SC DIAGNOSIS.Performed By: #### CVDTBH #### [facility] [address] [place] [address] Dr. Get Melara [Catalytic activity/Vol]40 U/EQtrrom04-930RadRegency Hospital ToledoComment on above:Performed By: #### BNP, T7, CMP, TSH #### [facility] [address] [place] [address] Dr. Get OleaMB [Mass/Vol]1.53 ng/mLNormal<=3.60[facility] Comment on above:Performed By: #### BNP, T7, CMP, TSH #### [facility] [address] [place] [address] Dr. Get Mckay23.6 pg/mLNormal4.0-76.1The [facility] HospitalCompine rest [facility] on above:Result Comment: CUT-OFF POINTS HAVE BEEN ESTABLISHED BASED ON THE FOURTH UNIVERSAL DEFINITIONS OF MYOCARDIAL INFARCTION. THE UPPER REFERENCE LIMIT (URL) OF TROPONIN, DEFINED THE 99TH PERCENTILE OF cTnI DISTRIBUTION IN A REFERENCE POPULATION, HAS BEEN CONFIRMED THE DECISION THRESHOLD FOR SC DIAGNOSIS.Performed By: #### BNP, T7, CMP, TSH #### [facility] [address] [address] [address] Get Meyer W MANUAL DIFFon [id number] LYMPH #NormalThe [facility] HospitalComment on above:Performed By: #### CMP, HSTROPN, BNP #### [facility] [address] [address] [address] Get EdouardYPICAL LYMPH %NormalThe [facility] HospitalComment on above: Performed By: #### CMP, HSTROPN, BNP #### [facility] [address] [place] [address] Dr. Get Day #0.5 103/ulCritically high0.0-0.3The [facility] Comment on above:Performed By: #### CMP, HSTROPN, BNP #### [facility] [address] [address] [address] Get Day %4 %Normal0-5The [facility] HospitalComment on above:Performed By: #### CMP, HSTROPN, BNP #### [facility] [address] [place] [address] Dr. Get Aceves #0.00 103/ulNormal0.00-0.10The [facility] HospitalComment on above:Performed By: #### CMP, HSTROPN, BNP #### [facility] [address] [address] [address] Get Aceves %0.0 %Critically low0.2-2.0The [facility] HospitalComment on above:Performed By: #### CMP, HSTROPN, BNP #### [facility] [address] [place] [address] Dr. Get Wing #NormalThe [facility] HospitalComment on above:Performed By: #### CMP, HSTROPN, BNP #### [facility] [address] [place] [address] Dr. Get WhittenBLAST %NormalThe [facility] HospitalComment on above:Performed By: #### CMP, HSTROPN, BNP #### [facility] [address] [place] [address] Dr. Get WhittenCORRECTED WBCNormal4.0-11.0The [facility] on above: Performed By: #### CMP, HSTROPN, BNP #### [facility] [address] [place] [address] Dr. Get Kendrick #0.00 103/ulNormal0.00-0.70The [facility] HospitalComp[facility] on above:Performed By: #### CMP, HSTROPN, BNP #### [facility] [address] [place] [address] Dr. Get Kendrick%0.0 %Critically low0.9-7.0The [facility] HospitalComp[facility] on above:Performed By: #### CMP, HSTROPN, BNP #### [facility] [address] [place] [address] Dr. Get WhittenHCT44.0 %Ogsbkr05.0-54.0The [facility]Comp[facility] on above: Performed By: #### CMP, HSTROPN, BNP #### [facility] [address] [place] [address] Dr. Get WhittenHGB15.8 g/tcLaapap11.0-18.0The [facility] HospitalComp[facility] on above: Performed By: #### CMP, HSTROPN, BNP #### [facility] [address] [place] [address] Dr. Get WhittenHYPERSEG NEUT2+NormalThe [facility] HospitalComment on above: Performed By: #### CMP, HSTROPN, BNP #### [facility] [address] [place] [address] Dr. Get HargroveMPHM #1.56 103/ulNormal1.20-3.80The [facility] HospitalComment on above:Performed By: #### CMP, HSTROPN, BNP #### [facility] [address] [address] [address] Get Villarreal%13.0 %Critically low20.5-60.0The [facility] HospitalComment on above:Performed By: #### CMP, HSTROPN, BNP #### [facility] [address] [address] [address] Get FriedH36.2 pgCritically high25.9-34.0The [facility] HospitalComment on above:Performed By: #### CMP, HSTROPN, BNP #### [facility] [address] [address] [address] Get FriedHC35.9 g/dlCritically high29.9-35.2The [facility] HospitalComment on above:Performed By: #### CMP, HSTROPN, BNP #### [facility] [address] [address] [address] Get FriedV100.7 fLCritically high80.0-94.0The [facility] HospitalComment on above:Performed By: #### CMP, HSTROPN, BNP #### [facility] [address] [address] [address] Get SalinasOCYTE #NormalThe [facility] HospitalComment on above: Performed By: #### CMP, HSTROPN, BNP #### [facility] [address] [address] [address] Get SalinasOCYTE %NormalThe [facility] HospitalComment on above: Performed By: #### CMP, HSTROPN, BNP #### [facility] [address] [address] [address] Get Leyva#1.08 103/ulCritically high0.30-0.80The [facility] Comment on above:Performed By: #### CMP, HSTROPN, BNP #### [facility] [address] [address] [address] Get Leyva%9.0 %Normal1.7-12.0The [facility] HospitalComment on above: Performed By: #### CMP, HSTROPN, BNP #### [facility] [address] [address] [address] Get RivasV10.3 fLNormal9.5-13.5The [facility] HospitalComment on above: Performed By: #### CMP, HSTROPN, BNP #### [facility] [address] [address] [address] Get CaryOCYTE #NormalThe [facility] HospitalComment on above:Performed By: #### CMP, HSTROPN, BNP #### [facility] [address] [address] [address] Get CaryOCYTE %NormalThe [facility] Hospitalment on above:Performed By: #### CMP, HSTROPN, BNP #### [facility] [address] [address] [address] Get ConnBCNormalThe [facility] HospitalComment on above:Performed By: #### CMP, HSTROPN, BNP #### [facility] [address] [address] [address] Get SalazarT111 103/ulCritically qoc242-380Ojg [facility] Hospitalment on above:Performed By: #### CMP, HSTROPN, BNP #### [facility] [address] [address] [address] Get RubioC4.37 106/ulCritically low4.70-6.10The [facility] HospitalComment on above:Performed By: #### CMP, HSTROPN, BNP #### [facility] [address] [address] [address] Get WhittenRDW12.4 %Ikttbb12.0-15.0The [facility] Hospitalment on above: Performed By: #### CMP, HSTROPN, BNP #### [facility] [address] [address] [address] Get Kimble #8.88 103/ulCritically high1.40-6.50The [facility] Comment on above:Performed By: #### CMP, HSTROPN, BNP #### [facility] [address] [address] [address] Get Kimble %74.0 %Pngmgq50.0-75.0The [facility] Hospitalment on above: Performed By: #### CMP, HSTROPN, BNP #### [facility] [address] [place] [address] Dr. Get WhittenWBC12.0 103/ulCritically high4.0-11.0The [facility] on above:Performed By: #### CMP, HSTROPN, BNP #### [facility] [address] [place] [address] Dr. Get Cintron [id number] [Mass/Vol]mg/LNormal<=1.0The [facility] on above:Performed By: #### CMP, HSTROPN, BNP #### [facility] [address] [place] [address] Dr. Get WhittenCovid-19 PCR (CVDTBH)on [id number]-CoV-2 (COVID-19) RNA ASHLEE+probe Ql (Unsp spec)DetectedCritically abnormalNOT DETECTEDThe [facility] on above:Result Comment: This test is not yet approved or cleared by the [place] FDA. When there are no FDA-approved or cleared tests available, and other criteria are met, FDA can make tests available under an emergency access mechanism called an Emergency Use Authorization (EUA). The EUA for this test is supported by the Ship Engineer of Health and Human Service's declaration [...] longer be used).Performed By: #### CVDTBH #### [facility] [address] [place] [address] Dr. Get WhittenLACTATE/LACTIC ACIDon [id number] [Moles/Vol]0.4 mmol/L Normal0.4-1.9The [facility] HospitalComment on above:Performed By: #### CMP, HSTROPN, BNP #### [facility] [address] [place] [address] Dr. Get Mckeon [id number] [Moles/Vol]126 mmol/LCritically pgo256-871 The [facility] HospitalComment on above:Performed By: #### BNP, T7, CMP, TSH #### [facility] [address] [place] [address] Dr. Get Richards 14(COMP METB)on [id number] [Mass/Vol]3.6 g/dLNormal 3.4-5.0The [facility] HospitalComment on above:Performed By: #### CMP, HSTROPN, BNP #### [facility] [address] [place] [address] Dr. Get WhittenAlbumin/Globulin [Mass ratio]1.0 {ratio}NormalThe [facility] HospitalComment on above:Performed By: #### CMP, HSTROPN, BNP #### [facility] [address] [place] [address] Dr. Get Saba [Catalytic activity/Vol]49 U/ZFywcnw35-916Yky [facility] HospitalComment on above:Performed By: #### CMP, HSTROPN, BNP #### [facility] [address] [place] [address] Dr. Get Pichardo [Catalytic activity/Vol]80 U/LCritically riqe79-30Lbf [facility] HospitalComment on above:Performed By: #### CMP, HSTROPN, BNP #### [facility] [address] [place] [address] Dr. Get Crow gap [Moles/Vol]16.2 mmol/LNormalThe [facility] on above:Performed By: #### CMP, HSTROPN, BNP #### [facility] [address] [place] [address] Dr. Yilan ChangAST [Catalytic activity/Vol]42 U/LCritically dsvd90-18Vwh [facility] HospitalComment on above:Performed By: #### CMP, HSTROPN, BNP #### [facility] [address] [address] [address] Get WhittenBilirubin [Mass/Vol]0.7 mg/dLNormal0.2-1.0The [facility] Comment on above:Performed By: #### CMP, HSTROPN, BNP #### [facility] [address] [address] [address] Get WhittenCalcium [Mass/Vol]8.4 mg/dLCritically low8.5-10.1The [facility] HospitalComment on above:Performed By: #### CMP, HSTROPN, BNP #### [facility] [address] [address] [address] Get WhittenChloride [Moles/Vol]91 mmol/LCritically zri61-299Won [facility] HospitalComment on above:Performed By: #### CMP, HSTROPN, BNP #### [facility] [address] [address] [address] Get WhittenCO2 [Moles/Vol]19.8 mmol/LCritically low21.0-32.0The [facility] HospitalComment on above:Performed By: #### CMP, HSTROPN, BNP #### [facility] [address] [address] [address] Get WhittenCreatinine [Mass/Vol]1.11 mg/dLNormal0.70-1.30The [facility] Hospitalment on above:Performed By: #### CMP, HSTROPN, BNP #### [facility] [address] [address] [address] Get PaytonGFR-AF TAIWANESE>60Normal>=60The [facility] HospitalComment on above:Performed By: #### CMP, HSTROPN, BNP #### [facility] [address] [address] [address] Get PaytonGFR-NON AF TAIWANESE>60Normal>=60The [facility] Hospitalment on above:Performed By: #### CMP, HSTROPN, BNP #### [facility] [address] [address] [address] Get WhittenGlobulin (S) [Mass/Vol]3.6 g/dLNormUniversity Hospitals Parma Medical CenterComment on above:Performed By: #### CMP, HSTROPN, BNP #### [facility] [address] [place] [address] Dr. Get WhittenGlucose [Mass/Vol]109 mg/dLCritically ilcy09-002Yjb [facility] HospitalComment on above:Performed By: #### CMP, HSTROPN, BNP #### [facility] [address] [place] [address] Dr. Get WhittenPotassium [Moles/Vol]4.0 mmol/LNormal3.5-5.1The [facility] Comment on above:Performed By: #### CMP, HSTROPN, BNP #### [facility] [address] [place] [address] Dr. Get WhittenProtein [Mass/Vol]7.2 g/dLNormal6.4-8.2The [facility] Comment on above:Performed By: #### CMP, HSTROPN, BNP #### [facility] [address] [place] [address] Dr. Get WhittenSodium [Moles/Vol]123 mmol/LCritically jbp111-288Vpi [facility] HospitalComment on above:Performed By: #### CMP, HSTROPN, BNP #### [facility] [address] [place] [address] Dr. Get WhittenUrea nitrogen [Mass/Vol]15.0 mg/dLNormal7.0-18.0The [facility] HospitalComment on above:Performed By: #### CMP, HSTROPN, BNP #### [facility] [address] [place] [address] Dr. Get WhittenUrea nitrogen/Creatinine [Mass ratio]13.5 mg/mgNoSelect Medical Cleveland Clinic Rehabilitation Hospital, Edwin ShawComment on above:Performed By: #### CMP, HSTROPN, BNP #### [facility] [address] [address] [address] Get Reid GRAM STAINon 23-34-9003SQLOSEMALK ORGANISMS OBSERVEDKettering Health Washington TownshipCompine rest [facility] mental [facility] services on above:Performed By: #### CVDTBH #### [facility] [address] [address] [address] Get WhittenDIPHTHEROIDSCorey HospitalCompine rest [facility] mental health services on above:Performed By: #### CVDTBH #### [facility] [address] [address] [address] Deutsch ChangEPITHELIALS<25Corey HospitalCompine rest [facility] services on above: Performed By: #### CVDTBH #### [facility] [address] [address] [address] Get WhittenFUNGAL ELEMENTSCorey HospitalCompine rest christ[facility] mental health services on above: Performed By: #### CVDTBH #### [facility] [address] [address] [address] Get Bonner NEG BACILLICorey HospitalCompine rest christ[facility] mental health services on above: Performed By: #### CVDTBH #### [facility] [address] [address] [address] Get Bonner NEG DIPPLOCOCCICorey HospitalCompine rest christ[facility] mental health services on above: Performed By: #### CVDTBH #### [facility] [address] [address] [address] Get Bonner POS BACILLICorey HospitalCompine rest christ[facility] mental health services on above: Performed By: #### CVDTBH #### [facility] [address] [address] [address] Get Bonner POSITIVE COCCINoSelect Medical Cleveland Clinic Rehabilitation Hospital, Edwin ShawCompine rest christ[facility] mental health services on above: Performed By: #### CVDTBH #### [facility] [address] [address] [address] Get Hedrick (Bld) [#/Vol]10*3/uLSelect Medical Specialty Hospital [facility] on above:Performed By: #### CVDTBH #### [facility] [address] [place] [address] Dr. Get Charles, HIGH SENSITIVITYon [id number] pg/mLNormal 4.0-76.1The [facility] on above:Result Comment: CUT-OFF POINTS HAVE BEEN ESTABLISHED BASED ON THE FOURTH UNIVERSAL DEFINITIONS OF MYOCARDIAL INFARCTION. THE UPPER REFERENCE LIMIT (URL) OF TROPONIN, DEFINED THE 99TH PERCENTILE OF cTnI DISTRIBUTION IN A REFERENCE POPULATION, HAS BEEN CONFIRMED THE DECISION THRESHOLD FOR SC DIAGNOSIS.Performed By: #### CMP, HSTROPN, BNP #### [facility] [address] [place] [address] Dr. Get Hidalgo 98-77-7528ACJ02.305 uIU/mLCritically high0.358-3.740The [facility] Hospitalment on above:Performed By: #### CMP, HSTROPN, BNP #### [facility] [address] [place] [address] Dr. Get WhittenXR CHEST 1 Von [id number] CHEST 1 VEXAM: XR CHEST 1 V HISTORY: COUGH COMPARISON: Chest x-ray 03/23/2022 TECHNIQUE: Single frontal view chest x-ray FINDINGS: No lobar consolidation, large pleural effusions, pneumothorax, or acute bony abnormality. Cardiac size is unremarkable. IMPRESSION: No radiographic evidence for acute chest abnormality. Electronically authenticated by: JANKI STEEL Date: 2022-03-26 04:[address] [place], [place] [address]BNPon [id number] peptide B (Bld) [Mass/Vol]385.0 pg/mLNormal<=900.0The [facility] HospitalComment on above:Performed By: #### CMP, HSTROPN, BNP #### [facility] [address] [place] [address] Dr. Get WhittenCBC W MANUAL DIFFon [id number] LYMPH #NormalThe [facility] HospitalComment on above:Performed By: #### BNP, T7, CMP, TSH #### [facility] [address] [place] [address] Dr. Get Bhatia LYMPH %NormalRegency Hospital ToledoComment on above: Performed By: #### BNP, T7, CMP, TSH #### [facility] [address] [place] [address] Dr. Get Day #0.2 103/ulNormal0.0-0.3The [facility] HospitalComment on above:Performed By: #### BNP, T7, CMP, TSH #### [facility] [address] [place] [address] Dr. Get Day %2 %Normal0-5The [facility] HospitalComment on above:Performed By: #### BNP, T7, CMP, TSH #### [facility] [address] [place] [address] Dr. Get Aceves #0.00 103/ulNormal0.00-0.10The [facility] HospitalComment on above:Performed By: #### BNP, T7, CMP, TSH #### [facility] [address] [place] [address] Dr. Get Aceves %0.0 %Critically low0.2-2.0The [facility] HospitalCompine rest [facility] on above:Performed By: #### BNP, T7, CMP, TSH #### [facility] [address] [place] [address] Dr. Get Wing #NormalRegency Hospital ToledoCompine rest christ[facility] mental health services on above:Performed By: #### BNP, T7, CMP, TSH #### [facility] [address] [place] [address] Dr. Get Wing %NormalThe [facility] Hollywood HospitalComment on above:Performed By: #### BNP, T7, CMP, TSH #### [facility] [address] [place] [address] Dr. Get WhittenCORRECTED WBCNormal4.0-11.0The [facility] HospitalComment on above: Performed By: #### BNP, T7, CMP, TSH #### [facility] [address] [place] [address] Dr. Get Kendrick #0.00 103/ulNormal0.00-0.70The [facility] HospitalComment on above:Performed By: #### BNP, T7, CMP, TSH #### [facility] [address] [address] [address] Get Kendrick%0.0 %Critically low0.9-7.0The [facility] HospitalComment on above:Performed By: #### BNP, T7, CMP, TSH #### [facility] [address] [address] [address] Get WhittenHCT45.6 %Vfhfvq49.0-54.0The [facility] HospitalComment on above: Performed By: #### BNP, T7, CMP, TSH #### [facility] [address] [place] [address] Dr. Get WhittenHGB16.3 g/bsFusnwt91.0-18.0The [facility] HospitalComment on above: Performed By: #### BNP, T7, CMP, TSH #### [facility] [address] [place] [address] Dr. Get Villarreal #0.89 103/ulCritically low1.20-3.80The [facility] Comment on above:Performed By: #### BNP, T7, CMP, TSH #### [facility] [address] [place] [address] Dr. Get Villarreal%9.0 %Critically low20.5-60.0The [facility] HospitalComment on above:Performed By: #### BNP, T7, CMP, TSH #### [facility] [address] [place] [address] Dr. Get WhittenMCH36.5 pgCritically high25.9-34.0The [facility] HospitalComment on above:Performed By: #### BNP, T7, CMP, TSH #### [facility] [address] [place] [address] Dr. Get FriedHC35.7 g/dlCritically high29.9-35.2The [facility] HospitalComment on above:Performed By: #### BNP, T7, CMP, TSH #### [facility] [address] [place] [address] Dr. Get FriedV102.0 fLCritically high80.0-94.0The [facility] Systemment on above:Performed By: #### BNP, T7, CMP, TSH #### [facility] [address] [address] [address] Get Heredia #NormalRegency Hospital ToledoComment on above: Performed By: #### BNP, T7, CMP, TSH #### [facility] [address] [address] [address] Get SalinasOCYTE %NormalRegency Hospital ToledoComment on above: Performed By: #### BNP, T7, CMP, TSH #### [facility] [address] [place] [address] Dr. Get Leyva#0.89 103/ulCritically high0.30-0.80The [facility] on above:Performed By: #### BNP, T7, CMP, TSH #### [facility] [address] [place] [address] Dr. Get Leyva%9.0 %Normal1.7-12.0[facility] on above: Performed By: #### BNP, T7, CMP, TSH #### [facility] [address] [place] [address] Dr. Get RivasV8.8 fLCritically low9.5-13.5The [facility] HospitalCompine rest [facility] on above:Performed By: #### BNP, T7, CMP, TSH #### [facility] [address] [place] [address] Dr. Get Kasper #NormalThe [facility] Systemment on above:Performed By: #### BNP, T7, CMP, TSH #### [facility] [address] [place] [address] Dr. Get Kasper %NormalRegency Hospital ToledoCompine rest [facility] mental health services on above:Performed By: #### BNP, T7, CMP, TSH #### [facility] [address] [place] [address] Dr. Get CaballeroNormalThe [facility] HospitalComment on above:Performed By: #### BNP, T7, CMP, TSH #### [facility] [address] [place] [address] Dr. Get WhittenPLT156 103/xhFsyoep241-487Nle [facility] Hospitalment on above: Performed By: #### BNP, T7, CMP, TSH #### [facility] [address] [place] [address] Dr. Get WhittenRBC4.47 106/ulCritically low4.70-6.10The [facility] HospitalComment on above:Performed By: #### BNP, T7, CMP, TSH #### [facility] [address] [place] [address] Dr. Get WhittenRDW12.4 %Mxwzot41.0-15.0The [facility] Hospitalment on above: Performed By: #### BNP, T7, CMP, TSH #### [facility] [address] [place] [address] Dr. Get Kimble #7.92 103/ulCritically high1.40-6.50The [facility] Comment on above:Performed By: #### BNP, T7, CMP, TSH #### [facility] [address] [place] [address] Dr. Get Kimble %80.0 %Critically high43.0-75.0The [facility] on above:Performed By: #### BNP, T7, CMP, TSH #### [facility] [address] [place] [address] Dr. Get WhittenWBC9.9 103/ulNormal4.0-11.0The [facility] Hospitalment on above: Performed By: #### BNP, T7, CMP, TSH #### [facility] [facility] [address] [place] [address] Dr. Get Richards 14(COMP METB)on [id number] [Mass/Vol]3.9 g/dLNormal 3.4-5.0The [facility] on above:Performed By: #### CMP, HSTROPN, BNP #### [facility] [address] [address] [address] Get WhittenAlbumin/Globulin [Mass ratio]1.1 {ratio}NormalThe [facility] HospitalComment on above:Performed By: #### CMP, HSTROPN, BNP #### [facility] [address] [address] [address] Get MartinezP [Catalytic activity/Vol]55 U/CHboiyu52-241Wfm [facility] HospitalComment on above:Performed By: #### CMP, HSTROPN, BNP #### [facility] [address] [address] [address] Get MartinezT [Catalytic activity/Vol]67 U/LCritically rsqe51-37Spx [facility] HospitalComment on above:Performed By: #### CMP, HSTROPN, BNP #### [facility] [address] [place] [address] Dr. Get Torrezon gap [Moles/Vol]13.2 mmol/LNormalThe [facility] Comment on above:Performed By: #### CMP, HSTROPN, BNP #### [facility] [address] [place] [address] Dr. Get WhittenAST [Catalytic activity/Vol]20 U/ERpeqlo88-96Ofo [facility] HospitalComment on above:Performed By: #### CMP, HSTROPN, BNP #### [facility] [address] [place] [address] Dr. Get WhittenBilirubin [Mass/Vol]0.4 mg/dLNormal0.2-1.0The [facility] Comment on above:Performed By: #### CMP, HSTROPN, BNP #### [facility] [address] [place] [address] Dr. Get WhittenCalcium [Mass/Vol]8.5 mg/dLNormal8.5-10.1The [facility] Comment on above:Performed By: #### CMP, HSTROPN, BNP #### [facility] [address] [place] [address] Dr. Get WhittenChloride [Moles/Vol]93 mmol/LCritically jsw63-718Ikx [facility] HospitalComment on above:Performed By: #### CMP, HSTROPN, BNP #### [facility] [address] [address] [address] Get WhittenCO2 [Moles/Vol]22.6 mmol/VHwovuh62.0-32.0The [facility] Comment on above:Performed By: #### CMP, HSTROPN, BNP #### [facility] [address] [address] [address] Get WhittenCreatinine [Mass/Vol]1.26 mg/dLNormal0.70-1.30The [facility] HospitalComment on above:Performed By: #### CMP, HSTROPN, BNP #### [facility] [address] [place] [address] Dr. Get PaytonGFR-AF TAIWANESE>60Normal>=60The [facility] HospitalComment on above:Performed By: #### CMP, HSTROPN, BNP #### [facility] [address] [place] [address] Dr. Get PaytonGFR-NON AF UNJCFWUZ82 mL/min/1.33q5Kxkyqmfbge low>=60The [facility] HospitalComment on above:Performed By: #### CMP, HSTROPN, BNP #### [facility] [address] [place] [address] Dr. Get WhittenGlobulin (S) [Mass/Vol]3.5 g/dLNormalThe [facility] HospitalComment on above:Performed By: #### CMP, HSTROPN, BNP #### [facility] [address] [place] [address] Dr. Get WhittenGlucose [Mass/Vol]144 mg/dLCritically ezbw41-493Ulw [facility] on above:Performed By: #### CMP, HSTROPN, BNP #### [facility] [address] [place] [address] Dr. Get WhittenPotassium [Moles/Vol]3.9 mmol/LNormal3.5-5.1The [facility] Comment on above:Performed By: #### CMP, HSTROPN, BNP #### [facility] [address] [address] [address] Get WhittenProtein [Mass/Vol]7.4 g/dLNormal6.4-8.2The [facility] Comment on above:Performed By: #### CMP, HSTROPN, BNP #### [facility] [address] [place] [address] Dr. Get WhittenSodium [Moles/Vol]125 mmol/LCritically abw918-169Mba [facility] HospitalComment on above:Performed By: #### CMP, HSTROPN, BNP #### [facility] [address] [place] [address] Dr. Get WhittenUrea nitrogen [Mass/Vol]14.0 mg/dLNormal7.0-18.0The [facility] HospitalComment on above:Performed By: #### CMP, HSTROPN, BNP #### [facility] [address] [place] [address] Dr. Get De Jesus nitrogen/Creatinine [Mass ratio]11.1 mg/mgNormalThe [facility] HospitalComment on above:Performed By: #### CMP, HSTROPN, BNP #### [facility] [address] [place] [address] Dr. Get Charles, HIGH SENSITIVITYon 38-09-5830HOYWUF9.6 pg/mLNormal 4.0-76.1The [facility] HospitalComment on above:Result Comment: CUT-OFF POINTS HAVE BEEN ESTABLISHED BASED ON THE FOURTH UNIVERSAL DEFINITIONS OF MYOCARDIAL INFARCTION. THE UPPER REFERENCE LIMIT (URL) OF TROPONIN, DEFINED THE 99TH PERCENTILE OF cTnI DISTRIBUTION IN A REFERENCE POPULATION, HAS BEEN CONFIRMED THE DECISION THRESHOLD FOR SC DIAGNOSIS.Performed By: #### CMP, HSTROPN, BNP #### [facility] [address] [place] [address] Dr. Get WhittenXR CHEST 1 Von [id number] CHEST 1 VEXAMINATION: XR CHEST 1 V [...] Electronically authenticated by: SHEN SOSA Date: 2022-03-23 15:02Corey HospitalCovid-19 PCR (CVDTBH)on 71-43-3078DFTN-CoV-2 (COVID-19) RNA ASHLEE+probe Ql (Unsp spec)DetectedCritically abnormalNOT DETECTEDThe [facility] HospitalComment on above:Result Comment: This test is not yet approved or cleared by the [place] FDA. When there are no FDA-approved or cleared tests available, and other criteria are met, FDA can make tests available under an emergency access mechanism called an Emergency Use Authorization (EUA). The EUA for this test is supported by the [place] of Health and Human Service's declaration that [...] used).Performed By: #### CMP, HSTROPN, BNP #### [facility] [address] [address] [address] Get Meyer AUTO DIFFon [id number] #0.1 103/ulNormal0.0-0.1The [facility] HospitalComment on above:Performed By: #### BNP, T7, CMP, TSH #### [facility] [address] [address] [address] Get WhittenBasophils/100 WBC (Bld)0.6 %Normal0.2-2.0The [facility] Comment on above:Performed By: #### BNP, T7, CMP, TSH #### [facility] [address] [place] [address] Dr. Get Babcock #0.0 103/ulNormal0.0-0.7The [facility] HospitalComment on above: Performed By: #### BNP, T7, CMP, TSH #### [facility] [address] [place] [address] Dr. Get Paytonosinophils/100 WBC (Bld)0.1 %Critically low0.9-7.0The [facility] HospitalComment on above:Performed By: #### BNP, T7, CMP, TSH #### [facility] [address] [place] [address] Dr. Get Paytonrythrocyte distribution width (RBC) [Ratio]13.1 %Pzadqc78.0-15.0 The [facility] HospitalComment on above:Performed By: #### BNP, T7, CMP, TSH #### [facility] [address] [place] [address] Dr. Get WhittenHematocrit (Bld) [Volume fraction]41.0 %Critically low42.0-54.0 The [facility] HospitalComment on above:Performed By: #### BNP, T7, CMP, TSH #### [facility] [address] [place] [address] Dr. Get WhittenHemoglobin (Bld) [Mass/Vol]14.3 g/bVEuoxin36.0-18.0The [facility] Hospitalment on above:Performed By: #### BNP, T7, CMP, TSH #### [facility] [address] [place] [address] Dr. Get WhittenIG #0.25 10e3/ulCritically high0.00-0.03The [facility] Comment on above:Performed By: #### BNP, T7, CMP, TSH #### [facility] [address] [place] [address] Dr. Get Sanford %2.3 %Critically high0.0-0.5The [facility] HospitalComment on above:Performed By: #### BNP, T7, CMP, TSH #### [facility] [address] [place] [address] Dr. Get Otoole #2.4 103/ulNormal1.2-3.8The [facility] HospitalComment on above:Performed By: #### BNP, T7, CMP, TSH #### [facility] [address] [place] [address] Dr. Get Ramirezhocytes/100 WBC (Bld)21.7 %Evcykp07.5-60.0The [facility] HospitalComment on above:Performed By: #### BNP, T7, CMP, TSH #### [facility] [address] [place] [address] Dr. Get Ace DIFF REQNONormalThe [facility] HospitalComment on above: Performed By: #### BNP, T7, CMP, TSH #### [facility] [address] [place] [address] Dr. Get Manley (RBC) [Entitic mass]37.0 pgCritically high25.9-34.0The [facility] HospitalComment on above:Performed By: #### BNP, T7, CMP, TSH #### [facility] [address] [place] [address] Dr. Get Fried (RBC) [Mass/Vol]34.9 g/uOOzzztf65.9-35.2The [facility] HospitalComment on above:Performed By: #### BNP, T7, CMP, TSH #### [facility] [address] [place] [address] Dr. Get Whitten (RBC) [Entitic vol]105.9 fLCritically high80.0-94.0The [facility] HospitalComment on above:Result Comment: 1+ macrocytosisPerformed By: #### BNP, T7, CMP, TSH #### [facility] [address] [place] [address] Dr. Get Bill #0.8 103/ulNormal0.3-0.8The [facility] HospitalComment on above:Performed By: #### BNP, T7, CMP, TSH #### [facility] [address] [place] [address] Dr. Get Lockettocytes/100 WBC (Bld)7.0 %Normal1.7-12.0The [facility] Comment on above:Performed By: #### BNP, T7, CMP, TSH #### [facility] [address] [place] [address] Dr. Get Falcon #7.5 103/ulCritically high1.4-6.5The [facility] Comment on above:Performed By: #### BNP, T7, CMP, TSH #### [facility] [address] [place] [address] Dr. Get Andersonutrophils/100 WBC (Bld)68.3 %Myukma08.0-75.0The [facility] HospitalComment on above:Performed By: #### BNP, T7, CMP, TSH #### [facility] [address] [place] [address] Dr. Get WhittenPlatelet mean volume (Bld) [Entitic vol]8.6 fLCritically low 9.5-13.5The [facility] HospitalComment on above:Performed By: #### BNP, T7, CMP, TSH #### [facility] [address] [place] [address] Dr. Get WhittenPLT235 103/tqMqpzaj635-752Kkk [facility] HospitalComment on above: Performed By: #### BNP, T7, CMP, TSH #### [facility] [address] [place] [address] Dr. Get RubioC3.87 106/ulCritically low4.70-6.10The [facility] HospitalComment on above:Performed By: #### BNP, T7, CMP, TSH #### [facility] [address] [place] [address] Dr. Get WhittenWBC11.0 103/ulNormal4.0-11.0The [facility] HospitalComment on above:Performed By: #### BNP, T7, CMP, TSH #### [facility] [address] [place] [address] Dr. Yilan ChangHighlands [facility] 48-87-9680Pzjlwdm [Mass/Vol]116 mg/dL Critically phpq40-796Lou [facility] HospitalComment on above:Performed By: #### CMP #### [facility] [address] [address] [address] Get VickF CHEM 8 (BAS METB)on 79-40-0815Obybn gap [Moles/Vol]14.2 mmol/LNormalThe [facility] HospitalComment on above:Performed By: #### BNP, T7, CMP, TSH #### [facility] [address] [address] [address] Get WhittenCalcium [Mass/Vol]8.7 mg/dLNormal8.5-10.1[facility] Comment on above:Performed By: #### BNP, T7, CMP, TSH #### [facility] [address] [address] [address] Get WhittenChloride [Moles/Vol]99 mmol/DIfmrgv16-274Miy [facility] Comment on above:Performed By: #### BNP, T7, CMP, TSH #### [facility] [address] [address] [address] Get WhittenCO2 [Moles/Vol]25.1 mmol/HMuofoc46.0-32.0[facility] Comment on above:Performed By: #### BNP, T7, CMP, TSH #### [facility] [address] [address] [address] Get WhittenCreatinine [Mass/Vol]1.24 mg/dLNormal0.70-1.30The [facility] HospitalComment on above:Performed By: #### BNP, T7, CMP, TSH #### [facility] [address] [address] [address] Get PaytonGFR-AF TAIWANESE>60Normal>=60The [facility] HospitalComment on above:Performed By: #### BNP, T7, CMP, TSH #### [facility] [address] [address] [address] Get PaytonGFR-NON AF TAIWANESE=60Normal>=60The [facility] HospitalComment on above:Performed By: #### BNP, T7, CMP, TSH #### [facility] [address] [address] [address] Get WhittenGlucose [Mass/Vol]122 mg/dLCritically oznf43-339Jxt [facility] HospitalComment on above:Performed By: #### BNP, T7, CMP, TSH #### [facility] [address] [address] [address] Get WhittenPotassium [Moles/Vol]4.3 mmol/LNormal3.5-5.1The [facility] Comment on above:Performed By: #### BNP, T7, CMP, TSH #### [facility] [address] [place] [address] Dr. Get WhittenSodium [Moles/Vol]134 mmol/LCritically dnj525-163Inz [facility] HospitalComment on above:Performed By: #### BNP, T7, CMP, TSH #### [facility] [address] [address] [address] Get WhittenUrea nitrogen [Mass/Vol]7.0 mg/dLNormal7.0-18.0The [facility] HospitalComment on above:Performed By: #### BNP, T7, CMP, TSH #### [facility] [address] [place] [address] Dr. Get WhittenUrea nitrogen/Creatinine [Mass ratio]5.6 mg/mgNormalThe [facility] HospitalComment on above:Performed By: #### BNP, T7, CMP, TSH #### [facility] [address] [place] [address] Dr. Get Charles, HIGH SENSITIVITYon 74-01-2170OTGKMU5.1 pg/mLNormal 4.0-76.1The [facility] on above:Result Comment: CUT-OFF POINTS HAVE BEEN ESTABLISHED BASED ON THE FOURTH UNIVERSAL DEFINITIONS OF MYOCARDIAL INFARCTION. THE UPPER REFERENCE LIMIT (URL) OF TROPONIN, DEFINED THE 99TH PERCENTILE OF cTnI DISTRIBUTION IN A REFERENCE POPULATION, HAS BEEN CONFIRMED THE DECISION THRESHOLD FOR SC DIAGNOSIS.Performed By: #### BNP, T7, CMP, TSH #### [facility] [address] [place] [address] Dr. Get Morgan CHEST 1 Von [id number] CHEST 1 VEXAM: Chest x-ray HISTORY: . CHEST PAIN, UNSPECIFIED . COMPARISON: 01/09/2022 TECHNIQUE: AP portable upright view of the chest FINDINGS: This is an expiratory chest. Heart and vascularity are unremarkable. Lungs are free of focal infiltrates. EKG leads overlie the chest. IMPRESSION: 1. Expiratory chest. 2. No acute heart or lung disease identified. Electronically authenticated by: JULIO CESAR PARKER Date: 2022-01-24 11:31Corey HospitalBNPon [id number] peptide B (Bld) [Mass/Vol]83.0 pg/mLNormal<=900.0The [facility] HospitalComment on above:Performed By: #### CMP, HSTROPN, BNP #### [facility] [address] [place] [address] Dr. Get TateC AUTO DIFFon [id number] #0.0 103/ulNormal0.0-0.1The [facility] HospitalComment on above:Performed By: #### CMP #### [facility] [address] [place] [address] Dr. Get WhittenBasophils/100 WBC (Bld)0.4 %Normal0.2-2.0The [facility] Comment on above:Performed By: #### CMP #### [facility] [address] [place] [address] Dr. Get Babcock #0.0 103/ulNormal0.0-0.7The [facility] HospitalComment on above: Performed By: #### CMP #### [facility] [address] [place] [address] Dr. Get Paytonosinophils/100 WBC (Bld)0.2 %Critically low0.9-7.0The [facility] HospitalComment on above:Performed By: #### CMP #### [facility] [address] [place] [address] Dr. Get Paytonrythrocyte distribution width (RBC) [Ratio]13.1 %Enaieq26.0-15.0 [facility]edoComment on above:Performed By: #### CMP #### [facility] [address] [place] [address] Dr. Get WhittenHematocrit (Bld) [Volume fraction]41.5 %Critically low42.0-54.0 The [facility] HospitalComment on above:Performed By: #### CMP #### [facility] [address] [place] [address] Dr. Get WhittenHemoglobin (Bld) [Mass/Vol]14.4 g/rWKzmzkf31.0-18.0The [facility] HospitalComment on above:Performed By: #### CMP #### [facility] [address] [place] [address] Dr. Get Sanford #0.12 10e3/ulCritically high0.00-0.03The [facility] Comment on above:Performed By: #### CMP #### [facility] [address] [place] [address] Dr. Get Sanford %1.1 %Critically high0.0-0.5The [facility] HospitalComment on above:Performed By: #### CMP #### [facility] [address] [place] [address] Dr. Get Otoole #2.3 103/ulNormal1.2-3.8The [facility] HospitalComment on above:Performed By: #### CMP #### [facility] [address] [place] [address] Dr. Get Ramirezhocytes/100 WBC (Bld)20.9 %Gcgrfm46.5-60.0The [facility] Systemment on above:Performed By: #### CMP #### [facility] [address] [place] [address] Dr. Get HeadUAL DIFF REQNONormalThe [facility] HospitalComment on above: Performed By: #### CMP #### [facility] [address] [place] [address] Dr. Get Manley (RBC) [Entitic mass]37.1 pgCritically high25.9-34.0The [facility] HospitalComment on above:Performed By: #### CMP #### [facility] [address] [place] [address] Dr. Get Fried (RBC) [Mass/Vol]34.7 g/zXMtczml57.9-35.2The [facility] HospitalComment on above:Performed By: #### CMP #### [facility] [address] [place] [address] Dr. Get Fried (RBC) [Entitic vol]107.0 fLCritically high80.0-94.0The [facility] HospitalComment on above:Result Comment: 1+ macrocytosisPerformed By: #### CMP #### [facility] [address] [place] [address] Dr. Get Bill #0.7 103/ulNormal0.3-0.8The [facility] HospitalComment on above:Performed By: #### CMP #### [facility] [address] [place] [address] Dr. Get Lockettocytes/100 WBC (Bld)6.3 %Normal1.7-12.0[facility] Comment on above:Performed By: #### CMP #### [facility] [address] [place] [address] Dr. Get Falcon #7.7 103/ulCritically high1.4-6.5The [facility] Comment on above:Performed By: #### CMP #### [facility] [address] [place] [address] Dr. Get Andersonutrophils/100 WBC (Bld)71.1 %Ufreck44.0-75.0The [facility] HospitalComment on above:Performed By: #### CMP #### [facility] [address] [place] [address] Dr. Get Hanleylet mean volume (Bld) [Entitic vol]8.6 fLCritically low 9.5-13.5The [facility] HospitalComment on above:Performed By: #### CMP #### [facility] [address] [place] [address] Dr. Get WhittenPLT238 103/tiChdibe977-217Zuv [facility] HospitalComment on above: Performed By: #### CMP #### [facility] [address] [place] [address] Dr. Get WhittenRBC3.88 106/ulCritically low4.70-6.10The [facility] HospitalComment on above:Performed By: #### CMP #### [facility] [address] [place] [address] Dr. Get WhittenWBC10.8 103/ulNormal4.0-11.0The [facility] HospitalComment on above:Performed By: #### CMP #### [facility] [address] [place] [address] Dr. Get WhittenCovid-19 PCR (CVDTBH)on 89-53-9287JFJP-CoV-2 (COVID-19) RNA ASHLEE+probe Ql (Unsp spec)Not detectedNormalNOT DETECTEDThe [facility] Comment on above:Result Comment: When diagnostic [...] for this test is supported by the [employer] of Health and Human Service's declaration [...] used).Performed By: #### CMP, HSTROPN, BNP #### [facility] [address] [place] [address] Dr. Get VickF 14(COMP METB)on 92-14-1591Rcpalyw [Mass/Vol]4.0 g/dLNormal 3.4-5.0The [facility] HospitalComment on above:Performed By: #### CMP, HSTROPN, BNP #### [facility] [address] [place] [address] Dr. Get WhittneAlbumin/Globulin [Mass ratio]1.0 {ratio}NormalThe [facility] HospitalComment on above:Performed By: #### CMP, HSTROPN, BNP #### [facility] [address] [place] [address] Dr. Get MartinezP [Catalytic activity/Vol]90 U/DSycuzf01-224Coe [facility] HospitalComment on above:Performed By: #### CMP, HSTROPN, BNP #### [facility] [address] [place] [address] Dr. Get MartinezT [Catalytic activity/Vol]27 U/XVwswzo05-84Wuh [facility] HospitalComment on above:Performed By: #### CMP, HSTROPN, BNP #### [facility] [address] [place] [address] Dr. Get Crow gap [Moles/Vol]12.6 mmol/LNormalThe [facility] Comment on above:Performed By: #### CMP, HSTROPN, BNP #### [facility] [address] [place] [address] Dr. Get WhittenAST [Catalytic activity/Vol]16 U/ARgayca19-20Tay [facility] Hospitalment on above:Performed By: #### CMP, HSTROPN, BNP #### [facility] [address] [place] [address] Dr. Get WhittenBilirubin [Mass/Vol]0.4 mg/dLNormal0.2-1.0The [facility] Comment on above:Performed By: #### CMP, HSTROPN, BNP #### [facility] [address] [place] [address] Dr. Get WhittenCalcium [Mass/Vol]8.4 mg/dLCritically low8.5-10.1The [facility] HospitalComment on above:Performed By: #### CMP, HSTROPN, BNP #### [facility] [address] [place] [address] Dr. Get WhittenChloride [Moles/Vol]100 mmol/BRmcyme27-986Ees [facility] Comment on above:Performed By: #### CMP, HSTROPN, BNP #### [facility] [address] [place] [address] Dr. Get WhittenCO2 [Moles/Vol]25.1 mmol/MVisbur32.0-32.0The [facility] Comment on above:Performed By: #### CMP, HSTROPN, BNP #### [facility] [address] [place] [address] Dr. Get WhittenCreatinine [Mass/Vol]1.20 mg/dLNormal0.70-1.30The [facility] HospitalComment on above:Performed By: #### CMP, HSTROPN, BNP #### [facility] [address] [place] [address] Dr. Get PaytonGFR-AF TAIWANESE>60Normal>=60The [facility] Hospitalment on above:Performed By: #### CMP, HSTROPN, BNP #### [facility] [address] [place] [address] Dr. Get PaytonGFR-NON AF TAIWANESE>60Normal>=60The [facility] HospitalComment on above:Performed By: #### CMP, HSTROPN, BNP #### [facility] [address] [place] [address] Dr. Get WhittenGlobulin (S) [Mass/Vol]4.0 g/dLNormalThe [facility] HospitalComment on above:Performed By: #### CMP, HSTROPN, BNP #### [facility] [address] [place] [address] Dr. Get WhittenGlucose [Mass/Vol]110 mg/dLCritically cemo34-037Gzb [facility] HospitalComment on above:Performed By: #### CMP, HSTROPN, BNP #### [facility] [address] [place] [address] Dr. Get WhittenPotassium [Moles/Vol]4.7 mmol/LNormal3.5-5.1The [facility] Comment on above:Performed By: #### CMP, HSTROPN, BNP #### [facility] [address] [place] [address] Dr. Get WhittenProtein [Mass/Vol]8.0 g/dLNormal6.4-8.2The [facility] Comment on above:Performed By: #### CMP, HSTROPN, BNP #### [facility] [address] [place] [address] Dr. Get WhittenSodium [Moles/Vol]133 mmol/LCritically lox568-333Wmg [facility] HospitalComment on above:Performed By: #### CMP, HSTROPN, BNP #### [facility] [address] [place] [address] Dr. Get WhittenUrea nitrogen [Mass/Vol]7.0 mg/dLNormal7.0-18.0[facility] ToledoComment on above:Performed By: #### CMP, HSTROPN, BNP #### [facility] [address] [place] [address] Dr. Get De Jesus nitrogen/Creatinine [Mass ratio]5.8 mg/mgNormUniversity Hospitals Parma Medical CenterComment on above:Performed By: #### CMP, HSTROPN, BNP #### [facility] [address] [place] [address] Dr. Get LayIMErell 50-43-2360ORM Coag (PPP) [Relative time]{INR}NormalThe [facility] HospitalComment on above:Performed By: #### CVDTBH #### [facility] [address] [place] [address] Dr. Get Monteiro GUIDELINESSEE BELOWCorey HospitalComment on above:Result Comment: DESIRED INR: 2.0 - 3.0 CONDITIONS NOT LISTED BELOW 2.5 - 3.5 FOR PROSTHETIC HEART VALVE REPLACEMENT 2.5 - 3.5 RECURRENT THROMBOSIS Performed By: #### CVDTBH #### [facility] [address] [address] [address] Get WhittenPT Coag (PPP) [Time]9.8 sNormal9.0-11.6The [facility] Comment on above:Performed By: #### CVDTBH #### [facility] [address] [place] [address] Dr. Get Henley 25-40-4509wGOI Coag (Bld) [Time]28.5 wRhchiv82.3-36.2[facility] ToledoComment on above:Performed By: #### CMP #### [facility] [address] [place] [address] Dr. Get Charles, HIGH SENSITIVITYon 14-28-8186IGPKDH2.1 pg/mLNormal 4.0-76.1The [facility] HospitalComment on above:Result Comment: CUT-OFF POINTS HAVE BEEN ESTABLISHED BASED ON THE FOURTH UNIVERSAL DEFINITIONS OF MYOCARDIAL INFARCTION. THE UPPER REFERENCE LIMIT (URL) OF TROPONIN, DEFINED THE 99TH PERCENTILE OF cTnI DISTRIBUTION IN A REFERENCE POPULATION, HAS BEEN CONFIRMED THE DECISION THRESHOLD FOR SC DIAGNOSIS.Performed By: #### CMP, HSTROPN, BNP #### [facility] [address] [place] [address] Dr. Get WhittenXR CHEST 1 Von 88-95-3089HZ CHEST 1 VEXAMINATION: XR CHEST 1 V [...] authenticated by: JULIO CESAR BUTCHER Date: 2022-01-09 18:21NormCleveland Clinic Medina Hospital HospitalCoding Summary.on 96-04-5713Dajxxx Summary.CODING DATE: 12/18/2018 FINAL [facility] STATUS: Home (Routine DC) PAYOR: Commercial Insurance APC DESCRIPTION 5481 Laser Eye Procedures ADMIT DX: REASON FOR VISIT DX: H26.492 Other secondary cataract, left eye FINAL DX: PRINCIPAL: H26.492 Other secondary cataract, left eye SECONDARY: PYMT PROC APC STAT DESCRIPTION DOCTOR NAME DATE 31918 5502 T Discission of secondary Darnell Rick DO [...] By: Verona Woodward Date Saved: 12/18/2018 10:51 [facility] Vital Signs Date TimeVital SignValuePerforming EzjuzmgxvBxwmxdzy83-13-1457 11:17-0400Body egikcx588.88 cmPee Lakhani MD Work Phone: [phone]08-20-2025 11:17-0400 Body mass index (BMI) [Ratio]28.4 kg/a2VipqjvrPee Lakhani MD Work Phone: [phone]08-20-2025 11:17-0400 Body kgPee Lakhani MD Work Phone: 1(527)[facility]1990[facility]08-14-2025 11:34-0400 Diastolic blood bawesaxt58 mm[Hg]Pee Lakhani MD Work Phone: [phone]08-14-2025 11:34-0400 Heart rate60 /Galo Lakhani MD Work Phone: [phone]08-14-2025 11:34-0400 Respiratory rate15 /Galo Lakhani MD Work Phone: 1(517)[facility]1990[facility]08-14-2025 11:34-0400 SaO2% (BldA) [Mass fraction]97 %Pee Lakhani MD Work Phone: [phone])[address]08-14-2025 11:34-0400 Systolic blood iqcixzfq095 mm[Hg]Pee Lakhani MD Work Phone: 1(803)483-[address] [place], [place] 0485808-14-2025 04:26-0400 Body nlocmh41 kgPee Lakhani MD Work Phone: [phone])[address] [place], [place] 2671408-14-2025 04:00-0400 Body ythzkuwaxex98.6 [degF]Pee Lakhani MD Work Phone: [phone])[address] [place], [place] 2671408-12-2025 08:12-0400 Body azcuqc979.88 cmPee Lakhani MD Work Phone: [phone])[address]06-01-2025 08:24-0400 Body pnecmcqmlka24.4 [degF]Pee Lakhani MD Work Phone: 1(160)[address] [place], [place] 2671406-01-2025 08:24-0400 Diastolic blood jmcinqnz71 mm[Hg]Pee Lakhani MD Work Phone: 1(502)[address] [place], [place] 2671406-01-2025 08:24-0400 Heart rate73 /Galo Lakhani MD Work Phone: 1(419)[address] [place], [place] 2671406-01-2025 08:24-0400 Respiratory rate20 /Galo Lakhani MD Work Phone: 1(465)[address] [place], [place] 2671406-01-2025 08:24-0400 SaO2% (BldA) [Mass fraction]100 %Pee Lakhani MD Work Phone: 1(037)[address] [place], [place] 2671406-01-2025 08:24-0400 Systolic blood egvdaxve635 mm[Hg]Pee Lakhani MD Work Phone: 1(271)[address] [place], [place] 2671406-01-2025 05:53-0400 Body vhyyse005.4 kgPee Lakhani MD Work Phone: 1(662)[address] [place], [place] 2671405-29-2025 11:01-0400 Body .42 cmPee Lakhani MD Work Phone: 1(518)[address]05-21-2025 15:17-0400 Diastolic blood bglylqzo21 mm[Hg]Pee Lakhani MD Work Phone: 1(475)[address] [place], [place] 2671405-21-2025 15:17-0400 Heart rate88 /Galo Lakhani MD Work Phone: 1(846)[address]05-21-2025 15:17-0400 Respiratory rate16 /Galo Lakhani MD Work Phone: [phone])[address]05-21-2025 15:17-0400 SaO2% (BldA) [Mass fraction]99 %Pee Lakhani MD Work Phone: [phone]05-21-2025 15:17-0400 Systolic blood aqammswk881 mm[Hg]Pee Lakhani MD Work Phone: [phone])[address]05-21-2025 12:37-0400 Body qdjuldltxwd38.8 [degF]Pee Lakhani MD Work Phone: 1(455)[address]05-21-2025 06:33-0400 Body fktoxl18.5 kgPee Lakhani MD Work Phone: 1([phone])[address]05-20-2025 16:50-0400 Inhaled oxygen flow rate8 L/Galo Lakhani MD Work Phone: [phone])[address]05-20-2025 13:45-0400 Body siecej168.42 cmPee Lakhani MD Work Phone: [phone] [place] [address] Encounters Encounter DateEncounter TypeCare ProviderFacilityStart: 05-22-2025 End: 62-76-3586gkwglbmiiiKJMZIMercy Health – The Jewish Hospitaltart: 05-22-2025 End: 17-88-9047Hhfqrvshh for other preprocedural examinationSFLORENCER [facility] Hospitaltart: 05-13-2025 End: 42-19-9806hyicfzlkooWfusbjp M Hoy MD Work Phone: [phone]-Qcxfamitw[address] [place] [address] OrthopedicsStart: 05-13-2025 End: 77-71-0335Jducdvw encounter procedureJumando Ceja [facility] Orth[facility] Work Phone: Start: 73-89-4357okormqcqmzSIBBT GRUBBUniCleveland Clinic Mercy Hospitaltart: 04-24-2025 End: 34-13-7842Idfyzc [facility] Work Phone: MELODIE Christian DermatologyStart: 04-24-2025 End: 36-58-8387Gchjft [facility] Work Phone: NOMS Christian DermatologyStart: 04-24-2025 End: 03-50-3254Cuifcm outpatient visit 15 [facility] PA Work Phone: NOMS Christian DermatologyComment on above:Stasis dermatitis of both legs (Primary Dx); Encounter for removal of sutures; Rash and other nonspecific skin eruptionStart: 04-24-2025 End: 18-81-4883qlqvitgdcyTYWTZ [facility] MEDICINEMNot AvailableStart: 04-13-2025 End: 64-54-9771Jjtcpm [facility] Work Phone: N[facility] DermatologyStart: 04-13-2025 End: 21-49-0630Uzoswv [facility] Work Phone: NOMS Christian DermatologyStart: 04-13-2025 End: 46-81-6807Jobfogm encounter procedureBaptist [facility] PA Work Phone: NOMS Christian DermatologyComment on above:Rash and other nonspecific skin eruptionStart: 04-13-2025 End: 91-14-6959lzmmtpjdehDYQVW NORTHEIMNot AvailableStart: 51-45-9209qenwjvujut JYOTI GRUBBUniCleveland Clinic Mercy Hospitaltart: 03-06-2025 End: 06-74-5683Ebppjv [facility] Work Phone: NOMS [facility] DermatologyStart: 03-06-2025 End: 99-54-7825Ngejmi [facility] PA Work Phone: MELODIE Jerryusky DermatologyStart: 03-06-2025 End: 65-44-6587Vaamic outpatient new 30 minutesRylemarcella Jessika PA Work Phone: noMS Christian DermatologyComment on above:Rash and other nonspecific skin eruption (Primary Dx)Start: 03-06-2025 End: 97-18-7147ksjntuokczKVZFF NORTHEIMNot AvailableStart: 03-04-2025 End: 51-89-4412idbqhdvvaaLnhlbwd M Hoy MD Work Phone: [facility] Work Phone: Start: 03-04-2025 End: 95-85-4494Hfpouwy encounter procedureJustin A [facility] Orthopedics Work Phone: Start: 02-24-2025 End: 23-02-3397pkfmzjvatvGckplvr BlankFacility:[facility] Start: 02-24-2025 End: 34-94-2688Dtcmjqewhv and management of inpatientJustin Samra Ceja [address] Surgical Work Phone: Start: 02-24-2025 End: 82-48-6316alggneecruq encounterPee Lakhani MD Work Phone: [phone] [place] [address] Work Phone: Start: 73-20-0554Fzr-patient / Non-visitMiclaura Huang MD-[facility] Infect Dis Work Phone: Start: 25-31-4932irokohbzhvUCKE TriHealthtart: 02-11-2025 End: 32-87-0033vzaoduopsjSqhnclv M Hoy MD Work Phone: [facility] Work Phone: Start: 02-11-2025 End: 86-79-5172Unbkrcd encounter procedureJustin A [facility] Orthoped[facility] Work Phone: Start: 02-06-2025 End: 33-05-4838Yumavqf encounter procedureJumando Ceja DO-Pre-Surgical Testing Work Phone: Start: 02-06-2025 End: 06-15-6041mtigbjhqguRvlwdas M Hoy MD Work Phone: [facility] Work Phone: Start: 13-80-3296Sqkgduyne for preprocedural laboratory examinationJumando CejaHca Florida Suwannee Emergency Physician GroupStart: 58-76-5684pvoluknggsUDFRV GRUBBUniCleveland Clinic Mercy Hospitaltart: 01-12-2025 End: 57-99-1826thlmkyrmkyIxyidsi M Hoy MD Work Phone: [facility] Work Phone: Start: 01-12-2025 End: 07-60-7092Gjfqqub encounter procedureJumando Ceja DO-[facility] Orthopedics Work Phone: Start: 12-22-2024 End: 44-87-6799obhsvqctczYahnpev M Hoy MD Work Phone: [facility] Work Phone: Start: 12-22-2024 End: 71-25-7252Xadgzlh encounter procedurePee Lakhani MD Work Phone: [facility] Work Phone: Start: 98-11-0478Sxp-patient / Non-visitPee Lakhani MD Work Phone: [facility] Work Phone: Start: 87-25-9265Ugb-patient / Non-visitPee Lakhani MD Work Phone: [facility] Work Phone: Start: 12-03-2024 End: 96-59-4252Zrcxloagkg and management of inpatientPee Lakhani MD Work Phone: [facility] Work Phone: Start: 32-12-0192Ryu-patient / Non-visitPee Lakhani MD Work Phone: [facility] Physician [facility] Work Phone: Start: 42-42-4980Lvn-patient / Non-visitPee Lakhani MD Work Phone: [facility] Physician [facility] Orth[facility] Work Phone: Start: 12-01-2024 End: 91-93-3124Piudbrwqlx and management of inpatientPee Lakhani MD Work Phone: [facility] Work Phone: Start: 67-53-1892exagyowcznUKGJCleveland Clinic Avon Hospitaltart: 66-00-1821jqvipnoixrMBPVBProMedica Toledo Hospitaltart: 10-01-2024 End: 08-16-1635fsuehuahdnNAPNBMercy Health – The Jewish Hospitaltart: 94-16-9394zgwdyongomJJRIMercy Health – The Jewish Hospitaltart: 40-12-4956haofuuglxjVFDTCleveland Clinic Avon Hospitaltart: 27-56-3597ykeayccaynIFPGXProMedica Toledo Hospitaltart: 01-08-2023 End: 32-83-9871puugraflajWlrdscl Vytautas Giedraitis MDFacility:PM [facility] Start: 12-25-2022 End: 69-82-4660kjiskrwhkxHnmoznj Vytautas Giedraitis MDFacility:PM [place] Start: 11-27-2022 End: 39-46-1469hqldcvdalqIS PEE LAKHANI .Facility:A0Lfppj: 11-24-2022 End: 97-24-1719jpcazthtndJK PEE LAKHANI .Facility:Q5Fwysw: 10-27-2022 End: 82-33-8583uqzhqornmiAX ZAIRE SIS .Facility:F1Udnku: 10-23-2022 End: 26-89-0327aktxbsjvalJT PEE HOY .Facility:L8Ytywc: 44-40-8811mbuginjrrt DR PEE HOY .Facility:T7Pjamu: 53-09-8512xmxcvjrkkdHG PEE HOY . Facility:W3Esdnl: 81-99-2612mroqeqourjZQ PEE HOY .Facility:D5Nyrlj: 58-36-6891odobgbvwhaRL PEE HOY .Facility:J0Zvzay: 04-15-2022 End: 27-49-0283ayfusyaxfgPI PEE HOY .Facility:K8Pbgxi: 03-29-2022 End: 74-18-7397prxcdtsfvkVB PEE HOY .Facility:J0Btsbq: 03-27-2022 End: 71-55-9682Mzvbvhkvev and management of inpatientDR PEE HOY .Facility:H1 Start: 03-23-2022 End: 80-66-2166yunfpnkemeRW PEE HOY .Facility:F6Ucmbt: 03-17-2022 End: 61-25-8891rqlckquyruWO PEE HOY .Facility:C2Miyjt: 01-24-2022 End: 10-67-8361otmvnotohmAN PEE HOY .Facility:L0Poebq: 01-09-2022 End: 81-28-0591ktkrzxsugoVG ZAIRE SIS .Facility: Procedures DateProcedureProcedure DetailPerforming ClinicianStart: 91-16-0813ZJQQ / NAIL BIOPSYRylee Eduarencompass health rehabilitation hospital [facility] [place] Work Phone: Start: 15-66-3199Azbdhkis of left total hip arthroplastyPee Lakhani MD Work Phone: Start: 70-56-2212Yavdr X-ray of right shoulderDodalia Lakhani MD Work Phone: Start: 50-58-1728Xqxusf scan of lower limb veins Pee Lakhani MD Work Phone: Start: 58-81-5387Aiuhmdcu screenDougsusan BowersyComment on above:Result Comment: PERFORMED BY: [facility] [address] PATHOLOGIST EVENT SPECIALIST PRODUCT DEMONSTRATOR CHACORTA DE DIOS M.D.Start: 13-19-0992Ohccw X-ray of right hipDougsusan Lesvia CARD Work Phone: Start: 35-99-6474Lbnvt X-ray of right hipDodalia Lesvia CARD Work Phone: Plan of Treatment DateCare ActivityDetailAuthorStart: 06-25-2025 End: 31-19-9941Vhymhtr encounter ptbomfbwq77/11/2025 10:50 AM EST Office Visit [facility] [address] [place], [id number] Frances Rosen PA [address] [place] [address] NOMEdi JerrySpruce DermatologyStart: 04-24-2025 End: 28-26-0408Tldgoos encounter procedureNOMS Christian DermatologyComment on above:ArrivedStart: 04-13-2025 End: 14-49-0799Imhwfkb encounter procedureNOMS Christian DermatologyComment on above:ArrivedStart: 03-06-2025 End: 91-71-1451Hoyhuzz encounter cgniuymlb75/22/2025 12:20 PM EDT Office Visit [facility] [address] [place], [id number] Frances Rosen PA [address] [place] [address] ArrivedNOMS Purdyy DermatologyComment on above:ArrivedStart: 79-02-8175VwspveapnOhioHealth Van Wert Hospitaltart: 81-13-2000Difsmlog to infectious diseases physicianOhioHealth Van Wert Hospitaltart: 50-76-0034Cykurtph admissionOhioHealth Van Wert Hospitaltart: 62-30-8595CqwifgrnuOhioHealth Van Wert Hospitaltart: 93-01-0516Oajiw X-ray of right shoulderXR shoulder RT min 2V*[facility] Hospitaltart: 48-48-9626HX Shoulder - right ViewsOhioHealth Van Wert Hospitaltart: 29-31-3446YoaaupxawOhioHealth Van Wert Hospitaltart: 00-94-2016Cqseqbwg admission [facility] Hospitaltart: 67-18-1461Eopixkdo to clinical site acquisition manager [facility]tart: 10-56-1147WeksppzebOhioHealth Van Wert Hospitaltart: 27-00-8531Mqdloedy to rehabilitation physicianOhioHealth Van Wert Hospitaltart: 16-21-1408Qesqqgch admissionOhioHealth Van Wert Hospitaltart: 15-22-6608NbdqujueaksyOjyqfkxtaOhioHealth Van Wert Hospitaltart: 04-81-9180Ozzuyhgidwc of Right Hip Joint with Metal on Polyethylene Synthetic Substitute, Open ApproachReplacement of Right Hip Joint with Metal on Polyethylene Synthetic Substitute, Open ApproachTrumbull Regional Medical CenterDermatopathology examDermatopathology exam Pathology and Cytology Timed Rash and other nonspecific skin eruption ReleaseUpon Ordering for 1 Occurrences starting 04/13/2025[facility] Work Phone: comment on above:Release Upon Ordering for 1 Occurrences starting 04/13/2025Patient EducationCoshocton Regional [facility] Work Phone: Patient referralCoshocton Regional Medical Center [facility] Work Phone: Payers DatePayer CategoryPayerPolicy [id number] Health Insurance2018[place] [id number] [id number] 2.16.840.1.673509.3.57[id number] 2.840.1.432647.3.579.[id number] 2.840.1.828344.3.579.2.80863-02-3306Llyerdh4424706 2.840.1.004457.3.579.2.16208-84-1775Szrokym1065788 2.840.1.571938.3.579.2.80647-60-5971Xgwytva1318414 2.0.1.007728.3.579.2.97998-26-1210Jmxmlwu5860357 2.0.1.867504.3.579.2.77560-87-8007Gtqucbe7388435 2.0.1.770251.3.579.2.37557-51-5272Dtolbxv8985900 2.0.1.738937.3.579.2.61931-58-3803Lwflelg3264087 2.0.1.645710.3.57[id number] 2.840.1.870017.3.579.2.31732-99-0090Lyspqkz0461049 2.0.1.460782.3.579.2.73588-69-2324Wmsrayj2304107 2.840.1.479491.3.579.2.61643-14-2141Wgqdtts9326083 2.840.1.887011.3.579.2.02424-25-0615Hgpzsnr8385536 2.840.1.639349.3.579.2.[id number] 2.840.1.614938.3.579.[id number] 2..840.1.144828.3.579.[id number] 2.16.840.1.104830.3.579.2.129389-48-9977Qjzaemg33909465 2..840.1.703289.3.579.2.010018-43-1562Iznxwbz10044858 2.16.840.1.214146.3.579.2.1259 [id number] 1960Private Health Fyseswkpt20831668865-36-6301Peef-[id number] 2.16.840.1.495132.3.579.2.201Okbdzsa64852709 2.840.1.960191.3.579.2.531 [id number] 2.16.840.1.866842.3.579.2.170Mbnfidz37781865 2.0.1.116[id number] 2.0.1.922742.3.579.2.531 Social History DateTypeDetailFacilityStart: 12-04-2024 End: 34-93-0448Dmodejj smoking status NHISEx-smoker (finding)[facility] Hospitaltart: 12-14-2024 End: 97-49-8815MrkAcqg (finding)[facility]tart: 52-02-1361Rbx Assigned At BirthMercy Health Tiffin Hospitaltart: 12-03-2024 End: 01-96-2031FYHA Follow upSDOH Follow upRegency Hospital [facility] Work Phone: Tobacco smoking status NHISTobacco smoking consumption unknownINTERMOUNTAIN HEALTHCARE HealthcareStart: 12-23-9318Aqx assigned at birthNot on fileINTERMOUNTAIN HEALTHCARE HealthcareStart: 03-06-2025 End: 45-94-9267Hpauqh identityNot on [facility] HealthcareHistory of tobacco use Current smokerINTERMOUNTAIN HEALTHCARE HealthcareHistory of tobacco useCigarette SmokerINTERMOUNTAIN HEALTHCARE HealthcareStart: 86-19-8592Vhodrmn use and exposureSmokeless tobacco non-user [facility] HealthcareStart: 03-06-2025 End: 39-39-8080Nancropsb beverage intakeCurrent drinker of alcohol (finding)[facility] HealthcareStart: 03-06-2025 End: 34-88-6862Nppvsmx of Social functionNOMercy Hospital Joplin Medical Equipment Procedure CodeEquipment CodeEquipment Original TextEquipment IdentifierDates 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Coated hip femur prosthesis, modular()[id number] FDAStart: 12-02-2024 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Acetabular shell ()[id number] FDAStart: 47-61-3839Uwsoijkwu invasive revision of total replacement of hipCeramic femoral head prosthesis ()[id number] FDAStart: 31-78-4912Ycjemwvlu invasive revision of total replacement of hipOrthopaedic bone screw, non-bioabsorbable, sterile()[id number])[id number] FDAStart: 14-68-9547Koiqdatfe invasive revision of total replacement of hipOrthopaedic bone screw, non- bioabsorbable, sterile()[id number])[id number] FDAStart: 73-13-8716Cesjbumpf invasive revision of total replacement of hipNon-constrained polyethylene acetabular liner()[id number])[id number])[id number] FDAStart: 12-02-2024 Goals DatePatient GoalDesired Activity/State Functional Status OawiAjwrnmkstgLmnmrvImbxrtph81-45-2836Xxfnbugqfq statusPatient at [facility] Work Phone: [phone]) [phone]ourpwjhvv statusPatient is Progressing [facility] Work Phone: 1([phone]) [phone]jfiqoo statusPatient at [facility] Work Phone: Mental Status EcfpDrjtpajkknBgafmjIyvewrxd61-18-1841Gyikooriu functionCognitive Status Patient at [facility] Work Phone: [phone]) [phone]zdqvhl functionCognitive Status Patient at [facility] Work Phone: [phone]bdsnkb functionCognitive Status Patient at [facility] Work Phone: Clinical Notes 10-24-2022 to 05-22-2025 Note Date & [id number] NoteUT Cardiology - [facility] Subjective Rehan Trejo is a [...] Diagnosis Date COPD (chronic obstructive pulmonary disease) (CMS/HCC) Hyperlipidemia Hypertension Seizures (CMS/HCC) Syncope Past Surgical History: Procedure Laterality Date [...] Drug use: Never Allergies Allergies Allergen Reactions Orondo Anaphylaxis Penicillins Angioedema Procaine Unknown Medications Current Outpatient Medications: albuterol 90 mcg/actuation inhaler, Inhale 2 puff (more content not included)... [facility]10-10-2025 History of Present illness Narrative* GISSELLE Vásquez [...] Posterior, Right Forearm - Posterior, Right UpperBack [place] patches and plaques Discussed with patient that [...] - Anterior, Right Lower Leg - Anterior [place] scaly plaques in areas of edema The [...] Next Visit: 4-6 weeks documented in this encounterJohn J. Pershing VA Medical [id number] History of Present illness Narrative* GISSELLE Vásquez [...] SKIN ERUPTION Left Lower Leg - Anterior [place] patches and plaques Biopsy today, see procedure [...] Next Visit: Suture removal documented in this encounterJohn J. Pershing VA Medical [id number] History of Present illness Narrative* GISSELLE Vásquez [...] Next Visit: 3-4 weeks documented in this encounterJohn J. Pershing VA Medical [id number] Progress note Author Ammon Huang [facility] CenterNote Date/TimeAugust 2024 9:22[place] [id number] Infect. Disease Progress Note Signed Patient: Rehan Trejo MR#: [id number] : 1965 Acct:[id number] Age/Sex: 60 / M Adm Date: 5 Loc: Room: [address] [place] [address] Type: ADM INOo Attending Dr: Nishant Ceja [...] 100 Mg Capsule) 100 mg PO BID [facility] Stop: 02/23/26 20:59 Last Admin: 02/25/25 20:58 Dose: Not Given Ferrous Sulfate (Ferrous Sulfate 324 Mg Tablet.Dr) 324 mg PO BID.WITH.MEALS [facility] Stop: 02/23/26 16:59 Last Admin: 02/25/25 17:01 Dose: 324 mg Isosorbide Mononitrate (Isosorbide Mononitrate 24hr Er 30 Mg Tab.Er.24h) 30 mg PO QAM [facility] Stop: 02/25/26 08:59 Last Admin: 02/25/25 08:06 Dose: 30 mg Levothyroxine Sodium (Levothyroxine 125 Mcg Tablet) 250 mcg PO DAILY@0630 [facility] Stop: 02/25/26 09:59 Last Admin: 02/26/25 04:31 Dose: 250 mcg Melatonin (Melatonin 3 Mg Tablet) 12 mg PO QHS [facility] Stop: 02/25/26 21:59 Last Admin: 02/25/25 20:59 Dose: 12 mg Metoprolol Tartrate (Metoprolol Tartrate 50 Mg Tablet) 50 mg PO BID [facility] Stop: 02/25/26 08:59 Last Admin: 02/25/25 20:58 Dose: 50 mg Mineral Oil (Mineral Oil ([place]) 1 Each Enema) 1 each [place] ONCE PRN PRN Reason: Constipation Morphine Sulfate [...] <Electronically signed by MD Ammon Huang> 02/26/25921 [facility] Work Phone: 1(877) 605-188608-14-2025 Progress note Author Nishant Ceja [facility] CenterNote Date/TimeAugust 2024 9:04[place] [address] Orthopedic Progress Note Signed Patient: Rehan Trejo MR#: [id number] : 1965 Acct:[id number] Age/Sex: 60 / M Adm Date: 5 Loc: Room: 6L0555-9 Type: ADM INOo Attending Dr: Nishant Ceja [...] signed by Nishant Ceja DO> 02/26/25 0904 [facility] Work Phone: 1([phone] 610-680408-14-2025 Discharge summary Author Nishant Ceja [facility] CenterNote Date/TimeAugust 2024 8:40[place] [address] Discharge Summary Signed Patient: Rehan Trejo MR#: [id number] : 1965 Acct:[id number] Age/Sex: 60 / M Adm Date: 5 Loc: Room: [address] [place] [address]: Nishant Ceja DO Copies to: [...] feel free to call our office at [phone]. You are a priority of ours and we will not be upset with you if you call. Wewould much rather you call to confirmaspects of your recovery process as opposed to possibly hindering your recovery with inappropriate care. We are committed to providing you with the best care possible. Dr. Nishant Ceja [facility] [address] [place] [address] [email or web address] Instructions: Know your Meds, Drugs, Alcohol & [...] signed by Nishant Ceja DO> 02/26/25 0840 [facility] Work Phone: 1([phone]) 531-137108-14-2025 [place] [address] Infect. Disease Progress Note Signed Patient: Rehan Trejo MR#: Sandeep [id number] : 1965 Acct:[id number] Age/Sex: 60 / M Adm Date: 5 Loc: 4N Room: [address] [place] [address] Type: ADM INOo Attending Dr: Nishant Ceja [...] 100 Mg Capsule) 100 mg PO BID [facility] Stop: 02/23/26 20:59 Last Admin: 02/25/25 20:58 Dose: Not Given Ferrous Sulfate (Ferrous Sulfate 324 Mg Tablet.Dr) 324 mg PO BID.WITH.MEALS [facility] Stop: 02/23/26 16:59 Last Admin: 02/25/25 17:01 Dose: 324 mg Isosorbide Mononitrate (Isosorbide Mononitrate 24hr Er 30 Mg Tab.Er.24h) 30 mg PO QAM [facility] Stop: 02/25/26 08:59 Last Admin: 02/25/25 08:06 Dose: 30 mg Levothyroxine Sodium (Levothyroxine 125 Mcg Tablet) 250 mcg PO DAILY@0630 [facility] Stop: 02/25/26 09:59 Last Admin: 02/26/25 04:31 Dose: 250 mcg Melatonin (Melatonin 3 Mg Tablet) 12 mg PO QHS [facility] Stop: 02/25/26 21:59 Last Admin: 02/25/25 20:59 Dose: 12 mg Metoprolol Tartrate (Metoprolol Tartrate 50 Mg Tablet) 50 mg PO BID [facility] Stop: 02/25/26 08:59 Last Admin: 02/25/25 20:58 Dose: 50 mg Mineral Oil (Mineral Oil ([place]) 1 Each Enema) 1 each [place] ONCE PRN PRN Reason: Constipation Morphine Sulfate [...] 17 Gm Powd.Pack) 17 gm PO DAILY [facility] Stop: 03/03/25 08:59 Last Admin: 02/25/25 08:07 [...] 0.4 Mg Cap.Er.24h) 0.4 mg PO DAILY [facility] Stop: 02/25/26 08:59 Last Admin: 02/25/25 08:06 Dose: 0.4 mg Temazepam (Temazepam 7.5 Mg Capsule) 7.5 mg PO QHS PRN PRN Reason: Insomnia Stop: 08/22/25 15:37 Last Admin: 02/25/25 21:00 Dose: 7.5 mg Tizanidine HCl (Tizanidine 4 Mg Tablet) 4 mg PO HS [facility] Stop: 02/25/26 21:59 Last Admin: 02/25/25 20:59 Dose: 4 mg Topiramate (Topiramate 100 Mg Tablet) 100 mg PO QAM [facility] Stop: 02/25/26 08:59 Last Admin: 02/25/25 08:14 Dose: 100 mg Topiramate (Topiramate 100 Mg Tablet) 200 mg PO HS [facility] Stop: 02/25/26 21:59 Last Admin: 02/25/25 20:59 [...] Ammon Huang MD 02/26/25917 Signed By: 02/26/25921 [facility]08-14-2025 [place] [address] Orthopedic Progress Note Signed Patient: Rehan Trejo MR#: [id number] : 1965 Acct:[id number] Age/Sex: 60 / M Adm Date: 5 Loc: Room: [address] [place] [address] Type: ADM INOo Attending Dr: Nishant Ceja [...] By: Nishant Ceja DO 02/26/2536 Signed By: 02/26/25 0904 [facility]08-14-2025 [place] [id number] Discharge Summary Signed Patient: Rehan Trejo MR#: [id number] : 1965 Acct:[id number] Age/Sex: 60 / M Adm Date: 5 Loc: Room: 6K5852-[address]: Nishant Ceja DO Copies to: [...] feel free to call our office at [phone]. You are a priority of ours and we will not be upset with you if you call. Wewould much rather you call to confirmaspects of your recovery process as opposed to possibly hindering your recovery with inappropriate care. We are committed to providing you with the best care possible. Dr. Nishant Ceja [facility] [address] [place] [address] [email or web address] Instructions: Know your Meds, Drugs, Alcohol & [...] DO 02/26/25 0838 Signed By: 02/26/25 0840 [facility]08-13-2025 Progress note Author Nishant Ceja [facility] CenterNote Date/TimeAugust 2024 10:09am [place] [address] Orthopedic Progress Note Signed Patient: Rehan Trejo MR#: Sandeep [id number] : 1965 Acct:[id number] Age/Sex: 60 / M Adm Date: 5 Loc: 4N Room: 3Z2351-8 Type: ADM INOo Attending Dr: Nishant Ceja [...] 53.6 49.4 Lymph % (Auto) 29.7 31.0 Robertson % (Auto) 8.8 10.5 Eos % (Auto) 6.7 8.6 Baso % (Auto) 1.2 0.5 Nucleat RBC Rel Count 0.2 0.1 Neut # (Auto) 4.7 3.4 Lymph # (Auto) 2.6 2.1 Robertson # (Auto) 0.8 0.7 Eos # (Auto) [...] <Electronically signed by Nishant Ceja DO> 02/25/25 9539 [facility] Work Phone: 1(522) 869-695508-13-2025 Progress note Author Ammon Huang [facility] CenterNote Date/TimeAugust 2024 8:54[place] [address] Infect. Disease Progress Note Signed Patient: Rehan Trejo MR#: [id number] : 1965 Acct:[id number] Age/Sex: 60 / M Adm Date: 5 Loc: Room: [address] [place] [address] Type: ADM INOo Attending Dr: Nishant Ceja [...] 100 Mg Capsule) 100 mg PO BID [facility] Stop: 02/23/26 20:59 Last Admin: 02/25/25 08:06 Dose: Not Given Ferrous Sulfate (Ferrous Sulfate 324 Mg Tablet.Dr) 324 mg PO BID.WITH.MEALS [facility] Stop: 02/23/26 16:59 Last Admin: 02/25/25 08:05 Dose: 324 mg Isosorbide Mononitrate (Isosorbide Mononitrate 24hr Er 30 Mg Tab.Er.24h) 30 mg PO QAM [facility] Stop: 02/25/26 08:59 Last Admin: 02/25/25 08:06 Dose: 30 mg Levothyroxine Sodium (Levothyroxine 125 Mcg Tablet) 250 mcg PO DAILY@0630 [facility] Stop: 02/25/26 09:59 Melatonin (Melatonin 3 Mg Tablet) 12 mg PO QHS [facility] Stop: 02/25/26 21:59 Metoprolol Tartrate (Metoprolol Tartrate 50 Mg Tablet) 50 mg PO BID [facility] Stop: 02/25/26 08:59 Last Admin: 02/25/25 08:05 Dose: 50 mg Mineral Oil (Mineral Oil ([place]) 1 Each Enema) 1 each [place] ONCE PRN PRN Reason: Constipation Morphine Sulfate [...] 17 Gm Powd.Pack) 17 gm PO DAILY [facility] Stop: 03/03/25 08:59 Last Admin: 02/25/25 08:07 [...] 0.4 Mg Cap.Er.24h) 0.4 mg PO DAILY [facility] Stop: 02/25/26 08:59 Last Admin: 02/25/25 08:06 Dose: 0.4 mg Temazepam (Temazepam 7.5 Mg Capsule) 7.5 mg PO QHS PRN PRN Reason: Insomnia Stop: 08/22/25 15:37 Tizanidine HCl (Tizanidine 4 Mg Tablet) 4 mg PO HS [facility] Stop: 02/25/26 21:59 Topiramate (Topiramate 100 Mg Tablet) 100 mg PO QAM [facility] Stop: 02/25/26 08:59 Last Admin: 02/25/25 08:14 Dose: 100 mg Topiramate (Topiramate 100 Mg Tablet) 200 mg PO HS [facility] Stop: 02/25/26 21:59 Tramadol HCl (Tramadol 50 Mg Tablet) 50 mg PO Q6H PRN PRN Reason: Pain Scale 1 - 5 Stop: 08/22/25 15:37 Triamcinolone Acetonide (Triamcinolone 0.5% Cream 15 Gm Tube) 1 applic TOPICAL BID [facility] Stop: 02/24/26 11:29 Last Admin: 02/25/25 08:07 Dose: 1 applic A&P - Infectious Disease Assessment/Plan (1) Stasis dermatitis: Plan To be dc on triamcinolone cream and to use on the RLE BID for 2 weeks. Avoid scratching. Documented By: Ammon Huang MD 02/25/25 0857 Signed By: <Electronically signed by MD Ammon Huang> 02/25/25 0854 [facility] Work Phone: 1(907) 147-718608-13-2025 [place] [id number] Orthopedic Progress Note Signed Patient: Rehan Trejo MR#: [id number] : 1965 Acct:[id number] Age/Sex: 60 / M Adm Date: 5 Loc: Room: [address] [place] [address] Type: ADM INOo Attending Dr: Nishant Ceja [...] 53.6 49.4 Lymph % (Auto) 29.7 31.0 Robertson % (Auto) 8.8 10.5 Eos % (Auto) 6.7 8.6 Baso % (Auto) 1.2 0.5 Nucleat RBC Rel Count 0.2 0.1 Neut # (Auto) 4.7 3.4 Lymph # (Auto) 2.6 2.1 Robertson # (Auto) 0.8 0.7 Eos # (Auto) [...] Ceja DO 02/25/25 1007 Signed By: 02/25/25 [facility]08-13-2025 [place] [address] Infect. Disease Progress Note Signed Patient: Rehan Trejo MR#: [id number] : 1965 Acct:[id number] Age/Sex: 60 / M Adm Date: 5 Loc: 4N Room: 9X2116-6 Type: ADM INOo Attending Dr: Nishant Ceja [...] 500 Mg Tablet) 500 mg PO BID.WITH.MEALS [facility] Stop: 02/23/26 16:59 Last Admin: 02/25/25 08:05 Dose: 500 mg Aspirin (Aspirin 81 Mg Tablet.) 81 mg PO BID [facility] Stop: 02/23/26 20:59 Last Admin: 02/25/25 08:05 Dose: 81 mg Atorvastatin Calcium (Atorvastatin 10 Mg Tablet) 10 mg PO HS [facility] Stop: 02/25/26 21:59 Calcium Carbonate (Calcium Carbonate/Vitamin D3 500 Mg/200 Unit Tablet) 1 tab PO BID [facility] Stop: 02/25/26 08:59 Last Admin: 02/25/25 08:14 Dose: 1 tab Diphenhydramine HCl (Diphenhydramine 25 Mg Capsule) 25 mg PO Q6H PRN PRN Reason: Itching Stop: 02/23/26 15:37 Docusate Sodium (Docusate 100 Mg Capsule) 100 mg PO BID [facility] Stop: 02/23/26 20:59 Last Admin: 02/25/25 08:06 Dose: Not Given Ferrous Sulfate (Ferrous Sulfate 324 Mg Tablet.) 324 mg PO BID.WITH.MEALS [facility] Stop: 02/23/26 16:59 Last Admin: 02/25/25 08:05 Dose: 324 mg Isosorbide Mononitrate (Isosorbide Mononitrate 24hr Er 30 Mg Tab.Er.24h) 30 mg PO QAM [facility] Stop: 02/25/26 08:59 Last Admin: 02/25/25 08:06 Dose: 30 mg Levothyroxine Sodium (Levothyroxine 125 Mcg Tablet) 250 mcg PO DAILY@0630 [facility] Stop: 02/25/26 09:59 Melatonin (Melatonin 3 Mg Tablet) 12 mg PO QHS [facility] Stop: 02/25/26 21:59 Metoprolol Tartrate (Metoprolol Tartrate 50 Mg Tablet) 50 mg PO BID [facility] Stop: 02/25/26 08:59 Last Admin: 02/25/25 08:05 Dose: 50 mg Mineral Oil (Mineral Oil ([place]) 1 Each Enema) 1 each [place] ONCE PRN PRN Reason: Constipation Morphine Sulfate [...] 17 Gm Powd.Pack) 17 gm PO DAILY [facility] Stop: 03/03/25 08:59 Last Admin: 02/25/25 08:07 [...] 0.4 Mg Cap.Er.24h) 0.4 mg PO DAILY [facility] Stop: 02/25/26 08:59 Last Admin: 02/25/25 08:06 Dose: 0.4 mg Temazepam (Temazepam 7.5 Mg Capsule) 7.5 mg PO QHS PRN PRN Reason: Insomnia Stop: 08/22/25 15:37 Tizanidine HCl (Tizanidine 4 Mg Tablet) 4 mg PO HS [facility] Stop: 02/25/26 21:59 Topiramate (Topiramate 100 Mg Tablet) 100 mg PO QAM [facility] Stop: 02/25/26 08:59 Last Admin: 02/25/25 08:14 Dose: 100 mg Topiramate (Topiramate 100 Mg Tablet) 200 mg PO HS [facility] Stop: 02/25/26 21:59 Tramadol HCl (Tramadol 50 [...] MD 02/25/25 0847 Signed By: 02/25/25 0854 [facility]08-12-2025 Consult note Author Ammon Huang [facility] CenterNote Date/TimeAugust 2024 10:46am [place] [address] Infect. Disease Consult Note Signed Patient: Rehan Trejo MR#: [id number] : 1965 Acct:[id number] Age/Sex: 60 / M Adm Date: 5 Loc: Room: [address] [place] [address] Type: REG [facility] Attending Dr: Nishant Ceja DO Copies to: [...] negative unless noted below or in HPI PMFSH Medical History (Updated 02/24/25 @ 10:45 by [...] Ringers) 1,000 mls @ 75 mls/hr IV .[id number] [facility] Stop: 02/23/26 15:44 Lactated Ringer's (Lactated Ringers) 1,000 mls @ 20 mls/hr IV .Q24H ONE Stop: 02/25/25 08:29 Last Infusion: 02/24/25 09:20 Dose: 20 mls/hr Mineral Oil (Mineral Oil ([place]) 1 Each Enema) 1 each VT ONCE PRN PRN Reason: Constipation Morphine Sulfate [...] / 100 mls/hr IV .Q24H ONE Rx#: [id number] Other: Weight 93.44 kg Date of Last [...] <Electronically signed by MD Ammon Huang> 02/24/25 0036 [facility] Work Phone: 1(272) 823-975008-12-2025 Evaluation note* Diagnosis Onset Date Resolution Status [...] post total hip replacement, rightnoneactiveOctober 2024 2:41pm [facility] Work Phone: [phone]) 789-347408-12-2025 History and physical note Author Nishant Ceja [facility] CenterNote Date/TimeAugust 2024 9:35[place] [address] Orthopedic Surgery H&P Signed Patient: Rehan Trejo MR#: [id number] : 1965 Acct:[id number] Age/Sex: 60 / M Adm Date: 5 Loc: [place] Room: Type: [facility] Attending Dr: Nishant Ceja DO Copies to: MD Nishant Bagley, ~ Date of Service: 02/24/2025 HPI History of [...] using some topical steroid cream without resolution [facility] Medical History (Updated 02/24/25 @ 09:35 by [...] Nishant Ceja DO> 02/24/25 0935 [facility] Work Phone: 1(259) 316-634708-12-2025 [place] [address] Infect. Disease Consult Note Signed Patient: Rehan Trejo MR#: [id number] : 1965 Acct:[id number] Age/Sex: 60 / M Adm Date: 5 Loc: Room: [address] [place] [address] Type: REG [facility] Attending Dr: Nishant Ceja DO Copies to: [...] negative unless noted below or in HPI [facility] Medical History (Updated 02/24/25 @ 10:45 by [...] Ringers) 1,000 mls @ 75 mls/hr IV .[id number] [facility] Stop: 02/23/26 15:44 Lactated Ringer's (Lactated Ringers) 1,000 mls @ 20 mls/hr IV .Q24H ONE Stop: 02/25/25 08:29 Last Infusion: 02/24/25 09:20 Dose: 20 mls/hr Mineral Oil (Mineral Oil ([place]) 1 Each Enema) 1 each VT ONCE PRN PRN Reason: Constipation Morphine Sulfate [...] 1 Tab Tablet) 2 tab PO DAILY [facility] Stop: 03/26/25 08:59 Sodium Chloride (Sodium Chloride [...] / 100 mls/hr IV .Q24H ONE Rx#: [id number] Other: Weight 93.44 kg Date of Last [...] MD 02/24/25 1040 Signed By: 02/24/25 1046 [facility]08-12-2025 [place] [address] Orthopedic Surgery H&P Signed Patient: Rehan Trejo MR#: [id number] : 1965 Acct:[id number] Age/Sex: 60 / M Adm Date: 5 Loc: [place] Room: Type: [facility] Attending Dr: Nishant Ceja DO [...] using some topical steroid cream without resolution [facility] Medical History (Updated 02/24/25 @ 09:35 by [...] DO 02/24/25 0933 Signed By: 02/24/25 0935 [facility]05-30-2025 Progress note Author Paco Jimenez [facility] CenterNote Date/TimeMay 2024 1:16[place] [address] Physiatry(Rehab) Progress Note Signed Patient: Rehan Trejo MR#: [id number] : 1965 Acct:[id number] Age/Sex: 59 / M Adm Date: 5 Loc: Room: [address] [place] [address] Type: ADM IN Attending Dr: Paco Jimenez [...] at homecaring for his , mother and vyirob-xi-wxk. Shares insight into mechanism of injury of [...] mg 12/03/24 16:45 Bisacodyl 10 Mg Supp.Rect VT 12/03/25 16:44 DAILY PRN Constipation Budesonide/Formoterol Fumarate [...] 16:45 Docusate Enema 283 Mg/5 Ml Enema VT 12/03/25 16:44 DAILY PRN Constipation Isosorbide Mononitrate [...] at least 3 times weekly encounters with manager fixed income for medical management and for plan of care review / changes. I spent 25 minutes for services, including wifl-xb-aiqv encounter with the patient, discussion of the case, plan of care, and exam; and tkwfcty-pd-yagd activities, such as reviewing pertinent health consultant documentation, recent therapynotes, laboratory and radiology studies, and discussion of case with care team including physician, nursing, counseling case manager, and therapists. More than 50 % of time was spent on patient/family counseling or coordination ofcare. Documented By: Paco Jimenez MD 1315 Signed By: <Electronically signed by Paco Jimenez MD> 12/12/24 1316 [facility] Work Phone: 1(325) 894-230305-30-2025 [place]Christ[place] [id number] Physiatry(Rehab) Progress Note Signed Patient: Rehan Trejo MR#: [id number] : 1965 Acct:[id number] Age/Sex: 59 / M Adm Date: 5 Loc: Room: [address] [place] [address] Type: ADM IN Attending Dr: Paco Jimenez [...] at homecaring for his , mother and axakeh-xu-dfl. Shares insight into mechanism of injury of [...] mg 12/03/24 16:45 Bisacodyl 10 Mg Supp.Rect VT 12/03/25 16:44 DAILY PRN Constipation Budesonide/Formoterol Fumarate [...] 16:45 Docusate Enema 283 Mg/5 Ml Enema VT 12/03/25 16:44 DAILY PRN Constipation Isosorbide Mononitrate [...] Tablet PO 12/04/25 08:59 100 mg QAM CRHISTOPHER Administration Topiramate 200 mg 12/03/24 22:00 12/11/24 [...] at least 3 times weekly encounters with manager fixed income for medical management and for plan of care review / changes. I spent 25 minutes for services, including scdk-pa-wsca encounter with the patient, discussion of the case, plan of care, and exam; and ifzpctu-nz-ccah activities, such as reviewing pertinent health consultant documentation, recent therapynotes, laboratory and radiology studies, and discussion of case with care team including physician, nursing, counseling case manager, and therapists. More than 50 % of time was spent on patient/family counseling or coordination ofcare. Documented By: Paco Jimenez MD 5 Signed By: 12/12/24 1316 [facility]05-30-2025 Radiology Diagnostic study note [facility] [place] [address] Ultrasound Report Signed Patient: Rehan Trejo MR#: [id number] : 1965 Acct:[id number] Age/Sex: 59 / M ADM Date: 5 Loc: Room: 3L2330-6 Type: ADM IN Attending Dr: Paco Jimenez [...] Donnelly M.D. 12/12/2024 11:17 AM Dictation Location: [place] [address] Tech: Ana Rosa Yin Transcribed By: NORI 12/12/241116 Dictated By: Zaire Donnelly MD 12/12/241116 Signed By: 12/12/24 [facility] Work Phone: 1(674) 178-617705-29-2025 Progress note Author Reshma Marin [facility] CenterNote Date/TimeMay 2024 5:24pm[place] [address] Hospitalist Progress Note Signed Patient: Rehan Trejo MR#: [id number] : 1965 Acct:[id number] Age/Sex: 59 / M Adm Date: 5 Loc: Room: [address] [place] [address] Type: ADM IN Attending Dr: Paco Jimenez [...] mg 12/03/24 16:45 Bisacodyl 10 Mg Supp.Rect VT 12/03/25 16:44 DAILY PRN Constipation Budesonide/Formoterol Fumarate [...] 16:45 Docusate Enema 283 Mg/5 Ml Enema VT 12/03/25 16:44 DAILY PRN Constipation Isosorbide Mononitrate [...] 2. Hyperlipidemia?atorvastatin 3. COPD/asthma?budesonide/formoterol 4. CAD history SC?isosorbide, metoprolol, aspirin 5. Hypothyroid?levothyroxine 6. BPH?tamsulosin 7. Seizures?Topiramate Documented By: Reshma Marin APRN 12/11/24 1633 Signed By: <Electronically signed by KB Marin> 12/11/24 1646 <Electronically signed by Connor Oliveros DO> 12/11/24 6391 [facility] Work Phone: 1(458) 476-128505-29-2025 [place] [address] Hospitalist Progress Note Signed Patient: Rehan Trejo MR#: [id number] : 1965 Acct:[id number] Age/Sex: 59 / M Adm Date: 5 Loc: 5T Room: [address] [place] [address] Type: ADM IN Attending Dr: Paco Jimenez [...] mg 12/03/24 16:45 Bisacodyl 10 Mg Supp.Rect VT 12/03/25 16:44 DAILY PRN Constipation Budesonide/Formoterol Fumarate [...] 16:45 Docusate Enema 283 Mg/5 Ml Enema VT 12/03/25 16:44 DAILY PRN Constipation Isosorbide Mononitrate [...] 2. Hyperlipidemia?atorvastatin 3. COPD/asthma?budesonide/formoterol 4. CAD history [place]?isosorbide, metoprolol, aspirin 5. Hypothyroid?levothyroxine 6. BPH?tamsulosin 7. Seizures?Topiramate Documented By: Reshma Marin APRN 12/11/24 1633 Signed By: 12/11/24 1646 12/11/24 1724 [facility]05-29-2025 Progress note Author Paco Jimenez [facility] CenterNote Date/TimeMay 2024 12:44pm[place] [address] Physiatry(Rehab) Progress Note Signed Patient: Rehan Trejo MR#: [id number] : 1965 Acct:[id number] Age/Sex: 59 / M Adm Date: 5 Loc: Room: 3U9607-7 Type: ADM IN Attending Dr: Paco Jimenez [...] at homecaring for his , mother and xylxbs-gx-hqm. Shares insight into mechanism of injury of [...] mg 12/03/24 16:45 Bisacodyl 10 Mg Supp.Rect VT 12/03/25 16:44 DAILY PRN Constipation Budesonide/Formoterol Fumarate [...] 16:45 Docusate Enema 283 Mg/5 Ml Enema VT 12/03/25 16:44 DAILY PRN Constipation Isosorbide Mononitrate [...] 09:35 12/11/24 07:59 Pantoprazole [address]Dr DELEON 12/05/25 09:34 40 mg DAILY [facility] Administration [...] at least 3 times weekly encounters with manager fixed income for medical management and for plan of care review / changes. I spent 25 minutes for services, including llyx-tw-raex encounter with the patient, discussion of the case, plan of care, and exam; and fwlfgcn-dy-vlmt activities, such as reviewing pertinent health consultant documentation, recent therapynotes, laboratory and radiology studies, and discussion of case with care team including physician, nursing, counseling case manager, and therapists. More than 50 [...] signed by MD ANÍBAL Tracy> 12/11/24 1151 [facility] Work Phone: 1([phone]) 577-119505-29-2025 [place] [address] Physiatry(Rehab) Progress Note Signed Patient: Rehan Trejo MR#: [id number] : 1965 Acct:[id number] Age/Sex: 59 / M Adm Date: 5 Loc: Room: [address] [place] [address] Type: ADM IN Attending Dr: Paco Jimenez [...] at homecaring for his , mother and ahslfr-fk-hlg. Shares insight into mechanism of injury of [...] mg 12/03/24 16:45 Bisacodyl 10 Mg Supp.Rect VT 12/03/25 16:44 DAILY PRN Constipation Budesonide/Formoterol Fumarate [...] 16:45 Docusate Enema 283 Mg/5 Ml Enema VT 12/03/25 16:44 DAILY PRN Constipation Isosorbide Mononitrate [...] at least 3 times weekly encounters with manager fixed income for medical management and for plan of care review / changes. I spent 25 minutes for services, including tlzi-vf-crdl encounter with the patient, discussion of the case, plan of care, and exam; and jzsyvya-qc-bjky activities, such as reviewing pertinent health consultant documentation, recent therapynotes, laboratory and radiology studies, and discussion of case with care team including physician, nursing, counseling case manager, and therapists. More than 50 [...] 1127 Signed By: 12/11/24 1244 12/11/24 1151 [facility]05-28-2025 Progress note Author Gloria Arrington [facility] CenterNote Date/TimeMay 2024 1:56[place] [address] Physiatry(Rehab) Progress Note Signed Patient: Rehan Trejo MR#: [id number] : 1965 Acct:[id number] Age/Sex: 59 / M Adm Date: 5 Loc: Room: [address] [place] [address] Type: ADM IN Attending Dr: Paco Jimenez [...] at homecaring for his , mother and qzsqps-sj-cre. Shares insight into mechanism of injury of [...] mg 12/03/24 16:45 Bisacodyl 10 Mg Supp.Rect VT 12/03/25 16:44 DAILY PRN Constipation Budesonide/Formoterol Fumarate [...] 16:45 Docusate Enema 283 Mg/5 Ml Enema VT 12/03/25 16:44 DAILY PRN Constipation Doxycycline Hyclate [...] at least 3 times weekly encounters with manager fixed income for medical management and for plan of care review / changes. I spent 19 minutes for services, including tljz-re-buet encounter with the patient, discussion of the case, plan of care, and exam; and snwfnpi-ez-ssym activities, such as reviewing pertinent health consultant documentation, recent therapynotes, laboratory and radiology studies, and discussion of case with care team including physician, nursing, counseling case manager, and therapists. More than 50 % of time was spent on patient/family counseling or coordination ofcare. <Statement entered by Paco Jimneez MD - 12/10/24 13:56> Patient was personally seen by me, Dr. Jimenez, on the day of encounter, reviewed the history and the relevant portions of the chart, including current orders, allied health and health consultant notes, labs/imaging and performed ulloa elements of exam and I formulated the plan of care and facilitated the medical decision making. I completed a substantive portion of this encounter, the medical decision makingportion of this note in its entirety, including Allied health note review, nursing note review, health consultant note review,discussion with nursing and case management, and more than 50% of my time was spent on counseling and coordination of care, time spent 20 minutes Documented By: Gloria Arrington APRN 12/10/24 0 959 Signed By: <Electronically signed by KB Arrington> 12/10/24 1003 <Electronically signed by Paco Jimenez MD> 12/10/24 1356 [facility] Work Phone: 1(851) 914-764605-28-2025 [place] [address] Physiatry(Rehab) Progress Note Signed Patient: Rehan Trejo MR#: [id number] : 1965 Acct:[id number] Age/Sex: 59 / M Adm Date: 5 Loc: Room: [address] [place] [address] Type: ADM IN Attending Dr: Paco Jimenez [...] at homecaring for his , mother and ztonqy-rf-pvw. Shares insight into mechanism of injury of [...] Tablet PO 12/04/25 07:59 500 mg BID.WITH.MEALS CHRISOTPHER Administration Aspirin 81 mg 12/03/24 21:00 12/10/24 09:44 Aspirin 81 Mg Tablet. PO 12/03/25 20:59 81 mg BID CHRISTOPHER Administration Atorvastatin Calcium 10 mg 12/03/24 22:00 12/09/24 20:59 Atorvastatin 10 Mg Tablet PO 12/03/25 21:59 10 mg HS CHRISTOPHER Administration Bisacodyl 10 mg 12/03/24 16:45 Bisacodyl 10 Mg Supp.Rect VT 12/03/25 16:44 DAILY PRN Constipation Budesonide/Formoterol Fumarate [...] 16:45 Docusate Enema 283 Mg/5 Ml Enema VT 12/03/25 16:44 DAILY PRN Constipation Doxycycline Hyclate [...] at least 3 times weekly encounters with manager fixed income for medical management and for plan of care review / changes. I spent 19 minutes for services, including cbui-ah-tmpr encounter with the patient, discussion of the case, plan of care, and exam; and hsbzavq-mi-unex activities, such as reviewing pertinent health consultant documentation, recent therapynotes, laboratory and radiology studies, and discussion of case with care team including physician, nursing, counseling case manager, and therapists. More than 50 % of time was spent on patient/family counseling or coordination ofcare. Patient was personally seen by me, Dr. Jimenez, on the day of encounter, reviewed the history and the relevant portions of the chart, including current orders, allied health and health consultant notes, labs/imaging and performed ulloa elements of exam and I formulated the plan of care and facilitated the medical decision making. I completed a substantive portion of this encounter, the medical decision makingportion of this note in its entirety, including Allied health note review, nursing note review, health consultant note review,discussion with nursing and case management, and more than 50% of my time was spent on counseling and coordination of care, time spent 20 minutes Documented By: Gloria Arrington APRN 12/10/24 0 959 Signed By: 12/10/24 1003 12/10/24 1356 [facility]05-28-2025 Progress note Author Gloria Arrington [facility] CenterNote Date/TimeMay 2024 11:[place] [address] Physiatry(Rehab) Progress Note Signed Patient: Rehan Trejo MR#: [id number] : 1965 Acct:[id number] Age/Sex: 59 / M Adm Date: 5 Loc: Room: 4L9999-7 Type: ADM IN Attending Dr: Paco Jimenez [...] at homecaring for his , mother and oraxwg-zx-ylj. Shares insight into mechanism of injury of [...] mg 12/03/24 16:45 Bisacodyl 10 Mg Supp.Rect VT 12/03/25 16:44 DAILY PRN Constipation Budesonide/Formoterol Fumarate [...] 16:45 Docusate Enema 283 Mg/5 Ml Enema VT 12/03/25 16:44 DAILY PRN Constipation Doxycycline Hyclate [...] Administration Tizanidine HCl 4 mg 12/03/24 22:00 05/22/25 21:28 Tizanidine 4 Mg Tablet PO 12/03/25 [...] at least 3 times weekly encounters with manager fixed income for medical management and for plan of care review / changes. I spent 21 minutes for services, including vkwx-oh-hcwr encounter with the patient, discussion of the case, plan of care, and exam; and qrrphwg-wf-rxss activities, such as reviewing pertinent health consultant documentation, recent therapynotes, laboratory and radiology studies, and discussion of case with care team including physician, nursing, counseling case manager, and therapists. More than 50 % of time was spent on patient/family counseling or coordination ofcare. <Statement entered by Jose Antonio Camara MD - 12/10/24 11:17> This documentation has been reviewed and approved. I reviewed the history and the relevant portions of the chart, including currentorders, allied health and health consultant notes, labs/imaging and plan of care as above. Documented By: Gloria Arrington APRN 12/05/24 1 144 Signed By: <Electronically signed by KB Arrington> 12/05/24 1243 <Electronically signed by Jose Antonio Camara MD> 12/10/24 1115 [facility] Work Phone: 1(676) 295-297405-28-2025 Progress note Author Gloria Arrington [facility] CenterNote Date/TimeMay 2024 10:53[place] [address] Physiatry(Rehab) Progress Note Signed Patient: Rehan Trejo MR#: [id number] : 1965 Acct:[id number] Age/Sex: 59 / M Adm Date: 5 Loc: Room: [address] [place] [address] Type: ADM IN Attending Dr: Paco Jimenez [...] at homecaring for his , mother and kbunge-qn-sql. Shares insight into mechanism of injury of [...] mg 12/03/24 16:45 Bisacodyl 10 Mg Supp.Rect VT 12/03/25 16:44 DAILY PRN Constipation Budesonide/Formoterol Fumarate [...] 16:45 Docusate Enema 283 Mg/5 Ml Enema VT 12/03/25 16:44 DAILY PRN Constipation Doxycycline Hyclate [...] DAILY CHRISTOPHER Administration Polyethylene Glycol 17 gm 05/22/25 09:00 12/08/24 09:05 Polyethylene Glycol 3350 17 [...] at least 3 times weekly encounters with manager fixed income for medical management and for plan of care review / changes. I spent 19 minutes for services, including cgfh-ii-vfil encounter with the patient, discussion of the case, plan of care, and exam; and qyqpeph-ed-pzid activities, such as reviewing pertinent health consultant documentation, recent therapynotes, laboratory and radiology studies, and discussion of case with care team including physician, nursing, counseling case manager, and therapists. More than 50 % of time was spent on patient/family counseling or coordination ofcare. <Statement entered by Jose Antonio Camara MD - 12/10/24 10:53> This documentation has been reviewed and approved. I reviewed the history and the relevant portions of the chart, including currentorders, allied health and health consultant notes, labs/imaging and plan of care as above. Documented By: Gloria Arrington APRN 12/08/24 1 103 Signed By: <Electronically signed by KB Arrington> 12/08/24 1105 <Electronically signed by Jose Antonio Camara MD> 12/10/24 1053 [facility] Work Phone: 1(467) 824-737305-28-2025 [place] [address] Physiatry(Rehab) Progress Note Signed Patient: Rehan Trejo MR#: [id number] : 1965 Acct:[id number] Age/Sex: 59 / M Adm Date: 5 Loc: Room: 4U3468-6 Type: ADM IN Attending Dr: Paco Jimenez [...] at homecaring for his , mother and urqkzd-ti-cqt. Shares insight into mechanism of injury of [...] mg 12/03/24 16:45 Bisacodyl 10 Mg Supp.Rect VT 12/03/25 16:44 DAILY PRN Constipation Budesonide/Formoterol Fumarate [...] 16:45 Docusate Enema 283 Mg/5 Ml Enema VT 12/03/25 16:44 DAILY PRN Constipation Doxycycline Hyclate [...] at least 3 times weekly encounters with manager fixed income for medical management and for plan of care review / changes. I spent 21 minutes for services, including gszf-np-zdcb encounter with the patient, discussion of the case, plan of care, and exam; and pfjkpts-kl-cgvn activities, such as reviewing pertinent health consultant documentation, recent therapynotes, laboratory and radiology studies, and discussion of case with care team including physician, nursing, counseling case manager, and therapists. More than 50 % of time was spent on patient/family counseling or coordination ofcare. This documentation has been reviewed and approved. I reviewed the history and the relevant portions of the chart, including currentorders, allied health and health consultant notes, labs/imaging and plan of care as above. Documented By: Gloria Arrington APRN 12/05/24 1 144 Signed By: 12/05/24 1243 12/10/[address] [place], [place] [address]651705-28-2025 [place] [address] Physiatry(Rehab) Progress Note Signed Patient: Rehan Trejo MR#: [id number] : 1965 Acct:[id number] Age/Sex: 59 / M Adm Date: 5 Loc: Room: 4J8353-3 Type: ADM IN Attending Dr: Paco Jimenez [...] at homecaring for his , mother and jtuoca-jo-wcm. Shares insight into mechanism of injury of [...] chronic. Right hip pain new on chronic ?03/25 and worse with minimal movement but is [...] mg 12/03/24 16:45 Bisacodyl 10 Mg Supp.Rect VT 12/03/25 16:44 DAILY PRN Constipation Budesonide/Formoterol Fumarate [...] 16:45 Docusate Enema 283 Mg/5 Ml Enema VT 12/03/25 16:44 DAILY PRN Constipation Doxycycline Hyclate [...] Tablet PO 12/03/25 21:59 10 mg QHS CHRISTPOHER Administration Metoprolol Tartrate 50 mg 12/03/24 21:00 [...] at least 3 times weekly encounters with manager fixed income for medical management and for plan of care review / changes. I spent 19 minutes for services, including fsnq-ld-tccb encounter with the patient, discussion of the case, plan of care, and exam; and hxowapq-uh-mzua activities, such as reviewing pertinent health consultant documentation, recent therapynotes, laboratory and radiology studies, and discussion of case with care team including physician, nursing, counseling case manager, and therapists. More than 50 % of time was spent on patient/family counseling or coordination ofcare. This documentation has been reviewed and approved. I reviewed the history and the relevant portions of the chart, including currentorders, allied health and health consultant notes, labs/imaging and plan of care as above. Documented By: Gloria Arrington APRN 12/08/24 1 103 Signed By: 12/08/24 1105 12/10/24 1053 [facility]05-27-2025 Progress note Author Paco Jimenez [facility] CenterNote Date/TimeMay 2024 12:[address] [address] Physiatry(Rehab) Progress Note Signed Patient: Rehan Trejo MR#: [id number] : 1965 Acct:[id number] Age/Sex: 59 / M Adm Date: 5 Loc: Room: 1K7851-4 Type: ADM IN Attending Dr: Paco Jimenez [...] at homecaring for his , mother and sghqtv-bf-lsj. Shares insight into mechanism of injury of [...] mg 12/03/24 16:45 Bisacodyl 10 Mg Supp.Rect VT 12/03/25 16:44 DAILY PRN Constipation Budesonide/Formoterol Fumarate [...] 16:45 Docusate Enema 283 Mg/5 Ml Enema VT 12/03/25 16:44 DAILY PRN Constipation Doxycycline Hyclate [...] at least 3 times weekly encounters with manager fixed income for medical management and for plan of care review / changes. I spent 25 minutes for services, including bkjo-jq-oknf encounter with the patient, discussion of the case, plan of care, and exam; and bfqcuix-db-fhcj activities, such as reviewing pertinent health consultant documentation, recent therapynotes, laboratory and radiology studies, and discussion of case with care team including physician, nursing, counseling case manager, and therapists. More than 50 % of time was spent on patient/family counseling or coordination ofcare. Documented By: Paco Jimenez MD 1244 Signed By: <Electronically signed by Paco Jimenez MD> 12/09/24 1246 [facility] Work Phone: 1(177) 401-309005-27-2025 [place] [address] Physiatry(Rehab) Progress Note Signed Patient: Rehan Trejo MR#: [id number] : 1965 Acct:[id number] Age/Sex: 59 / M Adm Date: 5 Loc: Room: [address] [place] [address] Type: ADM IN Attending Dr: Paco Jimenez [...] at homecaring for his , mother and dezabu-eq-vig. Shares insight into mechanism of injury of [...] mg 12/03/24 16:45 Bisacodyl 10 Mg Supp.Rect VT 12/03/25 16:44 DAILY PRN Constipation Budesonide/Formoterol Fumarate [...] 16:45 Docusate Enema 283 Mg/5 Ml Enema VT 12/03/25 16:44 DAILY PRN Constipation Doxycycline Hyclate [...] at least 3 times weekly encounters with manager fixed income for medical management and for plan of care review / changes. I spent 25 minutes for services, including hvtf-ao-vqdj encounter with the patient, discussion of the case, plan of care, and exam; and utskmpg-gk-feyx activities, such as reviewing pertinent health consultant documentation, recent therapynotes, laboratory and radiology studies, and discussion of case with care team including physician, nursing, counseling case manager, and therapists. More than 50 % of time was spent on patient/family counseling or coordination ofcare. Documented By: Paco Jimenez MD 1244 Signed By: 12/09/24 1246 [facility]05-23-2025 Consult note Author Danyell Daniels [facility] CenterNote Date/TimeMay 2024 10:12[place] [id number] Hospitalist Consult Note Signed Patient: Rehan Trejo MR#: [id number] : 1965 Acct:[id number] Age/Sex: 59 / M Adm Date: 5 Loc: Room: [address] [place] [address] Type: ADM IN Attending Dr: Paco Jimenez [...] underlying avascular necrosis. He was transferred to [facility] for ongoing orthopedic management. Seen by [...] negative unless noted below or in HPI [facility] Medical History (Updated 12/04/24 @ 17:48 by [...] 12/03/24 21:00 12/04/24 08:40 Aspirin 81 Mg Tablet.Dr PO 12/03/25 20:59 81 mg BID CHRISTOPHER Administration Atorvastatin Calcium 10 mg 12/03/24 22:00 12/03/24 21:20 Atorvastatin 10 Mg Tablet PO 12/03/25 21:59 10 mg HS CHRISTOPHER Administration Bisacodyl 10 mg 12/03/24 16:45 Bisacodyl 10 Mg Supp.Rect VT 12/03/25 16:44 DAILY PRN Constipation Budesonide/Formoterol Fumarate 2 puff 12/04/24 21:00 Budesonide/Formoterol 160-4.5 Mcg 60 Puff/6 Gm Hfa.Aer.Ad INHALATION 12/04/25 20:59 BID CHRISTOPHER Calcium Carbonate 1 tab 12/03/24 21:00 12/04/24 08:40 Calcium Carbonate/Vitamin D3 500 Mg/200 Unit Tablet PO 12/03/25 20:59 1 tab BID CHRISTOPHER Administration Diclofenac Sodium 75 mg 12/04/24 09:00 12/04/24 08:40 Diclofenac Sodium 75 Mg Tablet.Dr PO 12/04/25 [...] 16:45 Docusate Enema 283 Mg/5 Ml Enema VT 12/03/25 16:44 DAILY PRN Constipation Doxycycline Hyclate [...] % (Auto) 67.2, Lymph % (Auto) 20.4, Robertson % (Auto) 11.8, Eos % (Auto) 0.3, Baso % (Auto) 0.3, Nucleat RBC Rel Count 0.1, Neut # (Auto) 6.1, Lymph # (Auto) 1.9, Robertson # (Auto) 1.1 H, Eos # (Auto) [...] 2. Hyperlipidemia?atorvastatin 3. COPD/asthma?budesonide/formoterol 4. CAD history SC?isosorbide, metoprolol, aspirin 5. Hypothyroid?levothyroxine 6. BPH?tamsulosin 7. [...] PCP and out patient providers to obtain [facility] record entirely to followup on illnesses, symptoms, abnormal findings that I have and have not addressed duringthis encounter and hospitalization in out patient setting. Documented By: Danyell Daniels APRN 11/14 09/09 1538 Signed By: <Electronically signed by KB Daniels> 12/04/24 6730 <Electronically signed by Yonis Alves MD> 12/05/24 1012 [facility] Work Phone: 1(256) 893-982205-23-2025 [place] [address] Hospitalist Consult Note Signed Patient: Rehan Trejo MR#: [id number] : 1965 Acct:[id number] Age/Sex: 59 / M Adm Date: 5 Loc: Room: [address] [place] [address] Type: ADM IN Attending Dr: Paco Jimenez [...] underlying avascular necrosis. He was transferred to [facility] for ongoing orthopedic management. Seen by [...] negative unless noted below or in HPI [facility] Medical History (Updated 12/04/24 @ 17:48 by [...] 12/03/24 21:00 12/04/24 08:40 Aspirin 81 Mg Tablet.Dr PO 12/03/25 20:59 81 mg BID CHRISTOPHER Administration Atorvastatin Calcium 10 mg 12/03/24 22:00 12/03/24 21:20 Atorvastatin 10 Mg Tablet PO 12/03/25 21:59 10 mg HS CHRISTOPHER Administration Bisacodyl 10 mg 12/03/24 16:45 Bisacodyl 10 Mg Supp.Rect VT 12/03/25 16:44 DAILY PRN Constipation Budesonide/Formoterol Fumarate 2 puff 12/04/24 21:00 Budesonide/Formoterol 160-4.5 Mcg 60 Puff/6 Gm Hfa.Aer.Ad INHALATION 12/04/25 20:59 BID CHRISTOPHER Calcium Carbonate 1 tab 12/03/24 21:00 12/04/24 08:40 Calcium Carbonate/Vitamin D3 500 Mg/200 Unit Tablet PO 12/03/25 20:59 1 tab BID CHRISTOPHER Administration Diclofenac Sodium 75 mg 12/04/24 09:00 12/04/24 08:40 Diclofenac Sodium 75 Mg Tablet.Dr PO 12/04/25 [...] 16:45 Docusate Enema 283 Mg/5 Ml Enema VT 12/03/25 16:44 DAILY PRN Constipation Doxycycline Hyclate [...] % (Auto) 67.2, Lymph % (Auto) 20.4, Robertson % (Auto) 11.8, Eos % (Auto) 0.3, Baso % (Auto) 0.3, Nucleat RBC Rel Count 0.1, Neut # (Auto) 6.1, Lymph # (Auto) 1.9, Robertson # (Auto) 1.1 H, Eos # (Auto) [...] 2. Hyperlipidemia?atorvastatin 3. COPD/asthma?budesonide/formoterol 4. CAD history SC?isosorbide, metoprolol, aspirin 5. Hypothyroid?levothyroxine 6. BPH?tamsulosin 7. [...] PCP and out patient providers to obtain [facility] record entirely to followup on illnesses, symptoms, abnormal findings that I have and have not addressed duringthis encounter and hospitalization in out patient setting. Documented By: Danyell Daniels, METALLURGICAL ENGINEERING TECHNICIAN 11/14 09/09 1538 Signed By: 12/04/24 3053 12/05/24 1012 [facility]05-22-2025 History and physical note Author Paco Jimenez [facility] CenterNote Date/TimeMay 2024 2:52[place] [address] Physiatry (Rehab) H&P Signed Patient: Rehan Trejo MR#: [id number] : 1965 Acct:[id number] Age/Sex: 59 / M Adm Date: 5 Loc: Room: [address] [place] [address] Type: ADM IN Attending Dr: Paco Jimenez [...] at homecaring for his , mother and fkcolf-il-bjm. Shares insight into mechanism of injury of [...] and managing to work through the pain. [facility] Medical History COPD (chronic obstructive pulmonary disease) [...] 500 Mg Tablet) 500 mg PO BID.WITH.MEALS [facility] Stop: 12/04/25 07:59 Last Admin: 12/04/24 08:40 Dose: 500 mg Aspirin (Aspirin 81 Mg Tablet.Dr) 81 mg PO BID CHRISTOPHER Stop: 12/03/25 20:59 Last Admin: 12/04/24 08:40 Dose: 81 mg Atorvastatin Calcium (Atorvastatin 10 Mg Tablet) 10 mg PO HS [facility] Stop: 12/03/25 21:59 Last Admin: 12/03/24 21:20 Dose: 10 mg Bisacodyl (Bisacodyl 10 Mg Supp.Rect) 10 mg VT DAILY PRN PRN Reason: Constipation Stop: 12/03/25 16:44 Calcium Carbonate (Calcium Carbonate/Vitamin D3 500 Mg/200 Unit Tablet) 1 tab PO BID CHRISTOPHER Stop: 12/03/25 20:59 Last Admin: 12/04/24 08:40 Dose: 1 tab Diclofenac Sodium (Diclofenac Sodium 75 Mg Tablet.Dr) 75 mg PO DAILY CHRISTOPHER Stop: 12/04/25 [...] Enema 283 Mg/5 Ml Enema) 283 mg VT DAILY PRN PRN Reason: Constipation Stop: 12/03/25 16:44 Doxycycline Hyclate (Doxycycline Hyclate 100 Mg Tablet) 100 mg PO BID [facility] Stop: 12/10/24 20:59 Last Admin: 12/04/24 08:40 Dose: 100 mg Isosorbide Mononitrate (Isosorbide Mononitrate 24hr Er 30 Mg Tab.Er.24h) 30 mg PO QAM [facility] Stop: 12/04/25 08:59 Last Admin: 12/04/24 08:41 Dose: 30 mg Lactulose (Lactulose 20 Gm/30 Ml Udc) 30 gm PO DAILY PRN PRN Reason: Constipation Stop: 12/03/25 16:44 Levothyroxine Sodium (Levothyroxine 125 Mcg Tablet) 250 mcg PO DAILY.0630 [facility] Stop: 12/04/25 06:29 Last Admin: 12/04/24 05:36 Dose: 250 mcg Melatonin (Melatonin 5 Mg Tablet) 10 mg PO QHS [facility] Stop: 12/03/25 21:59 Last Admin: 12/03/24 21:20 [...] 100 Mg Tablet) 200 mg PO HS [facility] Stop: 12/03/25 21:59 Last Admin: 12/03/24 21:21 [...] % (Auto) 67.2 Lymph % (Auto) 20.4 Robertson % (Auto) 11.8 Eos % (Auto) 0.3 Baso % (Auto) 0.3 Nucleat RBC Rel Count 0.1 Neut # (Auto) 6.1 Lymph # (Auto) 1.9 Robertson # (Auto) 1.1 H Eos # (Auto) [...] 24 hour daily monitoring and intervention from Fitting Room Inspector as well as other consulting physicians including internal medicine as well as 24 hour daily director consumer nursing - for medical safe / optimal [...] at least 3 times weekly encounters with manager fixed income for medical management and for plan of care review / changes. Patient was personally seen by me, Dr. Jimenez, on the day of encounter, reviewed the history and the relevant portions of the chart, including current orders, allied health and health consultant notes, labs/imaging and performed ulloa elements of exam and I formulated the plan of care and facilitated the medical decision making and confirmed the resident physician note, as above I completed a substantive portion of this encounter, the medical decision makingportion of this note in its entirety, including Allied health note review, nursing note review, health consultant note review,discussion with nursing and case management, and more than 50% of my time was spent on counseling and coordination of care, time spent 40 minutes Documented By: Paco Jimenez MD 1149 Signed By: <Electronically signed by Paco Jimenez MD> 12/04/24 1452 <Electronically signed by MD ANÍBAL Tracy> 12/04/24 [facility] [place] Work Phone: 1(123) 111-470705-22-2025 [place] [address] Physiatry (Rehab) H&P Signed Patient: Rehan Trejo MR#: [id number] : 1965 Acct:[id number] Age/Sex: 59 / M Adm Date: 5 Loc: Room: 9R8621-7 Type: ADM IN Attending Dr: Paco Jimenez MD Copies to: MD Pee Silva MD Mark Khalil, MD, RES~ Date of Service: 12/04/2024 [facility] The patient was seen and examined on: [...] at homecaring for his , mother and smlixi-yf-gdr. Shares insight into mechanism of injury of [...] and managing to work through the pain. [facility] Medical History COPD (chronic obstructive pulmonary disease) [...] Bisacodyl (Bisacodyl 10 Mg Supp.Rect) 10 mg VT DAILY PRN PRN Reason: Constipation Stop: 12/03/25 16:44 Calcium Carbonate (Calcium Carbonate/Vitamin D3 500 Mg/200 Unit Tablet) 1 tab PO BID CHRISTOPHER Stop: 12/03/25 20:59 Last Admin: 12/04/24 08:40 Dose: 1 tab Diclofenac Sodium (Diclofenac Sodium 75 Mg Tablet.) 75 mg PO DAILY [facility] Stop: 12/04/25 08:59 Last Admin: 12/04/24 08:40 [...] Enema 283 Mg/5 Ml Enema) 283 mg VT DAILY PRN PRN Reason: Constipation Stop: 12/03/25 16:44 Doxycycline Hyclate (Doxycycline Hyclate 100 Mg Tablet) 100 mg PO BID [facility] Stop: 12/10/24 20:59 Last Admin: 12/04/24 08:40 Dose: 100 mg Isosorbide Mononitrate (Isosorbide Mononitrate 24hr Er 30 Mg Tab.Er.24h) 30 mg PO QAM CHRISTOPHER Stop: 12/04/25 08:59 Last Admin: 12/04/24 08:41 Dose: 30 mg Lactulose (Lactulose 20 Gm/30 Ml Udc) 30 gm PO DAILY PRN PRN Reason: Constipation Stop: 12/03/25 16:44 Levothyroxine Sodium (Levothyroxine 125 Mcg Tablet) 250 mcg PO DAILY.0630 [facility] Stop: 12/04/25 06:29 Last Admin: 12/04/24 05:36 Dose: 250 mcg Melatonin (Melatonin 5 Mg Tablet) 10 mg PO QHS [facility] Stop: 12/03/25 21:59 Last Admin: 12/03/24 21:20 Dose: 10 mg Metoprolol Tartrate (Metoprolol Tartrate 50 Mg Tablet) 50 mg PO BID [facility] Stop: 12/03/25 20:59 Last Admin: 12/04/24 08:40 Dose: 50 mg Oxycodone HCl (Oxycodone Ir 5 Mg Tablet) 10 mg PO Q4HR PRN PRN Reason: Pain Scale 6 - 10 Last Admin: 12/03/24 18:13 Dose: 10 mg Oxycodone HCl (Oxycodone Ir 5 Mg Tablet) 5 mg PO Q4HR PRN PRN Reason: Pain Polyethylene Glycol (Polyethylene Glycol 3350 17 Gm Powd.Pack) 17 gm PO DAILY [facility] Stop: 12/04/25 08:59 Last Admin: 12/04/24 08:41 Dose: Not Given Rivaroxaban (Rivaroxaban 10 Mg Tablet) 10 mg PO DAILY [facility] Stop: 12/04/25 08:59 Last Admin: 12/04/24 08:40 Dose: 10 mg Senna/Docusate Sodium (Sennosides/Docusate 8.6-50mg 1 Tab Tablet) 2 tab PO BID [facility] Stop: 12/03/25 20:59 Last Admin: 12/04/24 08:41 Dose: Not Given Sodium Chloride (Sodium Chloride 0.9 % 10 Ml Syringe) 0 ml IV-PUSH PRN PRN PRN Reason: Flush Stop: 12/03/25 16:44 Sodium Chloride (Sodium Chloride 0.9 % 10 Ml Syringe) 10 ml IV-PUSH BID [facility] Stop: 12/04/25 08:59 Last Admin: 12/04/24 08:41 Dose: 10 ml Tamsulosin HCl (Tamsulosin 0.4 Mg Cap.Er.24h) 0.4 mg PO DAILY [facility] Stop: 12/04/25 08:59 Last Admin: 12/04/24 08:40 Dose: 0.4 mg Tizanidine HCl (Tizanidine 4 Mg Tablet) 4 mg PO HS [facility] Stop: 12/03/25 21:59 Last Admin: 12/03/24 21:20 Dose: 4 mg Topiramate (Topiramate 100 Mg Tablet) 100 mg PO QAM [facility] Stop: 12/04/25 08:59 Last Admin: 12/04/24 08:40 Dose: 100 mg Topiramate (Topiramate 100 Mg Tablet) 200 mg PO HS [facility] Stop: 12/03/25 21:59 Last Admin: 12/03/24 21:21 [...] % (Auto) 67.2 Lymph % (Auto) 20.4 Robertson % (Auto) 11.8 Eos % (Auto) 0.3 Baso % (Auto) 0.3 Nucleat RBC Rel Count 0.1 Neut # (Auto) 6.1 Lymph # (Auto) 1.9 Robertson # (Auto) 1.1 H Eos # (Auto) [...] 24 hour daily monitoring and intervention from Fitting Room Inspector as well as other consulting physicians including internal medicine as well as 24 hour daily director consumer nursing - for medical safe / optimal [...] at least 3 times weekly encounters with manager fixed income for medical management and for plan of care review / changes. Patient was personally seen by me, Dr. Jimenez, on the day of encounter, reviewed the history and the relevant portions of the chart, including current orders, allied health and health consultant notes, labs/imaging and performed ulloa elements of exam and I formulated the plan of care and facilitated the medical decision making and confirmed the resident physician note, as above I completed a substantive portion of this encounter, the medical decision makingportion of this note in its entirety, including Allied health note review, nursing note review, health consultant note review,discussion with nursing and case management, and more than 50% of my time was spent on counseling and coordination of care, time spent 40 minutes Documented By: Paco Jimenez MD [id number] Signed By: 12/04/24 1452 12/04/24 1300 [facility]05-21-2025 Evaluation note* Diagnosis Onset Date Resolution Status Admit Date Alcohol dependence acuteMay 2024 4:33pmBPH (benign prostatic hyperplasia)acuteMay 2024 4:33pmCAD (coronary artery disease)acuteMay 2024 4:33pmCOPD (chronic obstructive pulmonary disease)acuteMay 2024 4:33pmHyperlipidemiaacuteMay 2024 4:33pmHypothyroidismacuteMay 2024 4:33pmAvascular necrosis resolvedMay 2024 4:33pmClosed right hip fractureresolvedMay 2024 4:33pmHTN (hypertension)resolvedMa2024 4:33pmImpaired mobility and activities of daily livingresolvedMay [...] post total hip replacement, rightnoneactiveAugust 2024 11:08am [facility] Work Phone: 1(870) 907-408105-19-2025 Evaluation note* Diagnosis Onset Date Resolution Status [...] fractureresolvedMay 2024 4:33pmHTN (hypertension) resolvedDecember 03, 2024 4:33pmS/P total hip arthroplastyresolvedMay 2024 4:33pmSeizure disorderresolvedMay 2024 4:33pm [facility] [place] Work Phone: 1(695) 310-806905-19-2025 Evaluation note* Diagnosis Onset Date Resolution Status [...] 03, 2024 4:33pmS/P total hip arthroplastyresolvedMa2024 4:33pmSeizure disorderresolvedMay 2024 4:33pmAvascular necrosis of bone of right hipacuteJune 2024 3:59pmAvascular necrosis of left femuracuteJune 2024 3:59pmClosed subcapital fracture of right femuracuteJune 2024 3:59pmStatus post total hip replacement, rightnoneactiveJune 2024 3:59pm [facility] Work Phone: 1([phone]) [phone] Evaluation note* Diagnosis Onset Date Resolution Status [...] post total hip replacement, rightnoneactiveJune 2024 3:59pm [facility] [place] Work Phone: 1(644) 812-613405-19-2025 Evaluation note* Diagnosis Onset Date Resolution Status [...] living resolvedDecember 03, 2024 4:33pmS/P total hip arthroplastyresolvedMay 2024 4:33pmSeizure [...] post total hip replacement, rightnoneactiveJune 2024 10:57am [facility] Work Phone: 1([phone]) 132-398805-19-2025 Evaluation note* Diagnosis Onset Date Resolution Status [...] post total hip replacement, rightnoneactiveJuly 2024 11:59am [facility] Work Phone: 1(347) 339-829505-19-2025 Evaluation note* Diagnosis Onset Date Resolution Status [...] lower extremityacuteAugust 2024 10:17amStasis dermatitisacuteAugust 2024 10:17am [facility] Work Phone: 1([phone]) 822-758203-19-2025 NoteUT Cardiology - [facility] Subjective Rehan Trejo is a [...] Adrenal insufficiency NSTEMI (non-ST elevated myocardial infarction) ([facility]) Alcoholism ([facility]) Atypical chest pain COVID-19 Diverticulitis Dysphagia Dyspnea Edema Epigastric pain Groin strain Lumbar radicular pain Other diseases of lung, not elsewhere classified Other instability, left ankle Other specified congenital deformities of feet Pain in left ankle and joints of left foot Pneumonia Primary osteoarthritis of left hip Sprain of left ankle Syncope and collapse Benign essential hypertension Osteoarthritis of knee Recurrent seizures ([facility]/H[facility]) HPI Patient with history of [...] Diagnosis Date COPD (chronic obstructive pulmonary disease) ([facility]) Hyperlipidemia Hypertension Seizures ([facility]) Syncope No past surgical history on [...] Drug use: Never Allergies Allergies Allergen Reactions Orondo Anaphylaxis Penicillins Angioedema Medications Current Outpatient Medications: [...] 4 mg by saloni (more content not included)...[facility]05-15-2023 NotePROCEDURE: XR ANKLE LT 2V HISTORY: Unspecified fall , left ankle pain COMPARISON: None. FINDINGS: BONES:No fracture, acute abnormality, or significant arthropathy. SOFT TISSUES:Mild anterior lateral soft tissue swelling. EFFUSION:None visible. OTHER: Negative. IMPRESSION: 1. No acute bone abnormality. Electronically authenticated by: SHEN SOSA Date: 2022-11-27 11:27[facility] [place]04-11-2023 NotePROCEDURE: XR HIP LT 2 3V W PELVIS HISTORY: Idiopathic osteoarthritis ; acute left hip pain after falling COMPARISON: None. FINDINGS: BONES:No fracture, acute abnormality, or significant arthropathy. SOFT TISSUES:No visible soft tissue swelling. EFFUSION:None visible. OTHER: Negative. IMPRESSION: 1. No acute bone abnormality or significant degenerative joint disease. Electronically authenticated by: SHEN SOSA Date: 2022-10-24 09:51[facility] note* Diagnosis Rash and other nonspecific skin eruption- Primary documented in this encounter [facility] HealthcareEvaluation note* Diagnosis Rash and other nonspecific skin eruption documented in this encounter [facility] HealthcareEvaluation note* Diagnosis Stasis dermatitis of both legs- Primary Encounter for removal of sutures Rash and other nonspecific skin eruption documented in this encounter [facility] HealthcareReason for referral (narrative)No reason for referral information availableW[facility] Work Phone: Summary Purpose Family [...] section and content) DATE CREATED AUTHOR 02/15/2019 [facility] DATE CREATED AUTHOR AUTHOR'S ORGANIZ ATION 12/22/2022 [facility] [place] DATE CREATED AUTHOR AUTHOR'S ORGANIZ ATION 03/06/2023 [facility] DATE CREATED AUTHOR AUTHOR'S ORGANIZ ATION 04/19/2025 [facility] DATE CREATED AUTHOR AUTHOR'S ORGANIZ ATION 04/26/2025 [facility] DATE CREATED AUTHOR AUTHOR'S ORGANIZ ATION 05/28/2025 [facility] Care Teams (unrecognized sec tion and content) Team Status: Active Member Role Status Dates Pee Lakhani MD Primary Care Provider Active Team Status: Inactive Member Role Status Dates Pee Lakhani MD Primary Care Provider Active Start: December 01, 2024 End: December 03, 2024Miclaura Cochran DOAdmit ProviderActiveStart: December 01, 2024 End: December 03, [...] 01, 2024 End: December 03enedict Jose Waterman Jr DOOther ProviderActiveStart: December 01, 2024 End: December 03john Jimenez MDOther ProviderActiveStart: December 01, 2024 End: December 03, 2024 Team Status: Active Member Role Status Dates Pee Lakhani MD Primary Care Provider Active Start: December 01, 2024 Marian Page ProviderActiveStart: December 01, 2024 Justin Garcia MDOther ProviderActiveStart: December 01, 2024 Kassy Mckay MDOther ProviderActiveStart: December 01, 2024 Nishant Ceja , DOAttending Provider, Other ProviderActiveStart: December 01, 2024 Janki Lam II, MDOther ProviderActiveStart: December 01, 2024 Rehan Thomas DOOther ProviderActiveStart: December 01, 2024 Luis Alberto Hearn MDOther ProviderActiveStart: December 01, 2024 Team Status: Active Member Role Status Dates Pee Lakhani MD Primary Care Provider Active Start: December 03, 2024 Marian Page ProviderActiveStart: December 03, 2024 Justin Garcia MDOther ProviderActiveStart: December 03, 2024 Kassy Mckay MDOther ProviderActiveStart: December 03, 2024 Nishant Ceja , DOOther ProviderActiveStart: December 03, 2024 Janki Lam II, MDOther ProviderActiveStart: December 03, 2024 Rehan Thomas , DOOther ProviderActiveStart: December 03, 2024 Luis Alberto Hearn MDOther ProviderActiveStart: December 03, 2024 Maria Del Rosario Hernandez MDOther ProviderActiveStart: December 03, 2024 Jose Antonio Camara , MDAttending Provider, Other ProviderActiveStart: December 03, 2024 [...] 03, 2024 End: December 14, 2024Michaejose Quiros , DOOther ProviderActiveStart: December 03, 2024 End: [...] December 03, 2024 End: December 14lowell Bonner CHARGE MASTER COORDINATOR-COther ProviderActiveStart: December 03, 2024 End: December 14dNikos Holleyher ProviderActiveStart: December 03, 2024 End: December 14, 2024J Luis Hebert MDOther ProviderActiveStart: December 03, 2024 End: December 14, 2024Naeelizabeth Hope MDOther ProviderActiveStart: December 03, 2024 End: December 14, 2024Tino Calixto MDOther ProviderActiveStart: December 03, 2024 End: December 14, 2024KhAneesh Escobar ProviderActiveStart: December 03, 2024 End: December 14Aneesh [place] ProviderActiveStart: December 03, 2024 End: December 14, [...] December 03, 2024 End: December 14jairo Hernandez , APRNOther ProviderActiveStart: December 03, 2024 End: December 14sony Hernandez MDOther ProviderActiveStart: December 03, 2024 End: December 14, 2024Dakwasi Keith MDOther ProviderActiveStart: December 03, 2024 End: December 14, 2024Michael Savage , DOOther ProviderActiveStart: December 03, 2024 End: December 14azkate Rea , DOOther ProviderActiveStart: December 03, 2024 [...] ProviderActiveStart: December 03, 2024 End: December 14, 2024Kayla R. Hukill , APRNOther ProviderActiveStart: December 03, 2024 End: December 14, 2024Yeimi Smith , APRNOther ProviderActiveStart: December 03, 2024 End: December 14, 2024Mariam Moore , RNOther ProviderActiveStart: December 03, 2024 End: December 14, 2024 Team Status: Active Member Role Status Dates Pee Lakhani MD Primary Care Provider Active Start: December 04, 2024 Paco Jimenez , [facility] Provider, Attending Provider, Other Provider ActiveStart: December 04, 2024 Padmini Acosta , RNOther [...] Moran MDOther ProviderActiveStart: December 04, 2024 Ammon Frings , DOOther ProviderActiveStart: December 04, 2024 Reyes Tracey MDOther ProviderActiveStart: December 04, 2024 Kyle Huerta MDOther ProviderActiveStart: December 04, 2024 Sis Bonner , CHARGE MASTER COORDINATOR-COther ProviderActiveStart: December 04, 2024 Yamilet Alejandra [...] ActiveStart: December 12, 2024 Padmini Acosta , BRISEYDAOther [...] ProviderActiveStart: December 12, 2024 Sis Bonner , CHARGE MASTER COORDINATOR-COther ProviderActiveStart: December 12, 2024 Yamilet Alejandra [...] Dempsey MDOther ProviderActiveStart: December 12, 2024 Diana oFrde , APRNOther ProviderActiveStart: December 12, 2024 Lorena [...] ProviderActiveStart: December 03, 2024 End: December 14, 2024Dealondra Bhakta RNOther ProviderActiveStart: December 03, 2024 End: [...] December 03, 2024 End: December 14, 2024Aneesh Apodaca ProviderActiveStart: December 03, 2024 End: December 14, [...] ProviderActiveStart: December 03, 2024 End: December 14, 2024Neal R Sandra , DOOther ProviderActiveStart: December 03, 2024 End: December 14, 2024Linda Obika , APRNOther ProviderActiveStart: December 03, 2024 End: [...] ProviderActiveStart: December 03, 2024 End: December 14, 2024Kywinifred Savage , DOOther ProviderActiveStart: December 03, 2024 End: December 14azkate Rea , DOOther ProviderActiveStart: December 03, 2024 End: December 14, 2024Gavin Calixto MDOther ProviderActiveStart: December 03, 2024 End: December 14dejan Sampson MDOther ProviderActiveStart: December 03, 2024 End: December 14robert rOtega , APRNOther ProviderActiveStart: December 03, 2024 End: [...] ProviderActiveStart: December 03, 2024 End: December 14, 2024Mariam Moore RNOther ProviderActiveStart: December 03, 2024 End: December 14, 2024Adali Blanco ProviderActiveStart: December 03, 2024 End: December 14, 2024 Team Status: Inactive Member Role Status Dates Pee Lakhani MD Primary Care Provider Active Start: December 22, 2024 End: December 22, 2024JuRosy Boxending ProviderActiveStart: December 22, 2024 End: December 22, [...] Kassy Mckay MDOther ProviderActiveStart: December 01, 2024 Janes Beebe ProviderActiveStart: December 01, 2024 Nishant Ceja DOOther ProviderActiveStart: December 01, 2024 Janki Lam II, MDOther ProviderActiveStart: December 01, 2024 Rehan Thomas DOOther ProviderActiveStart: December 01, 2024 Luis Alberto Hearn MDOther ProviderActiveStart: December 01, 2024 Team Status: Active Member Role Status Dates Pee Lakhani MD Primary Care Provider Active Start: December 03, 2024 Marian Page ProviderActiveStart: December 03, 2024 Justin Garcia MDOther [...] , APRNOther ProviderActiveStart: December 03, 2024 Levi Nashmarlenemadeline Haque, DOOther ProviderActiveStart: December 03, 2024 Paco Jimenez MDOther ProviderActiveStart: December 03, 2024 Team Status: Active Member Role Status Dates Pee Lakhani MD Primary Care Provider Active Start: December 04, 2024 Paco Jimenez MDAdmit ProviderActiveStart: December 04, 2024 Adali Silva ProviderActiveStart: December 04, 2024 Paco Jimenez MDOther [...] ProviderActiveStart: December 04, 2024 Sis Bonner , CHARGE MASTER COORDINATOR-COther ProviderActiveStart: December 04, 2024 Yamilet Alejandra [...] MDOther ProviderActiveStart: December 04, 2024 Michael Savage DOOther ProviderActiveStart: December 04, 2024 Lesley Rea [...] ProviderActiveStart: December 12, 2024 Sis Bonner , CHARGE MASTER COORDINATOR-COther ProviderActiveStart: December 12, 2024 Yamilet Alejandra [...] Start: February 06, 2025 End: February 06, 2025JuJanes Box ProviderActiveStart: February 06, 2025 End: February 06, 2025 Team Status: Inactive Member Role Status Dates Pee Lakhani MD Primary Care Provider Active Start: February 11, 2025 End: February 11, 2025JuJanes Box ProviderActiveStart: February 11, 2025 End: February 11, 2025 Team Status: Active Member Role Status Dates Pee Lakhani MD Primary Care Provider Active Start: February 24, 2025 Nishant A Brenna , DOOther ProviderActiveStart: February 24, 2025 Adali Anders ProviderActiveStart: February 24, 2025 Aneesh Anders ProviderActiveStart: February 24, 2025 Team Status: Inactive Member Role Status Gabriella Lakhani MD Primary Care Provider Active Start: February 24, 2025 End: February 26, 2025Justin Samra Ceja , DOAdmit ProviderActiveStart: February 24, 2025 [...] 2025 End: February 26, 2025Justin Samra Ceja , DOAdmit ProviderActiveStart: February 24, 2025 End: February 26, 2025Justin Samra Ceja , DOAttending ProviderActiveStart: February 24, 2025 End: February 26, 2025Aneesh Anders ProviderActiveStart: February 24, 2025 End: February 26, 2025 Team Status: Inactive Member Role/Relationship Status Gabriella Lakhani MD Primary Care Provider Active Start: March 04, 2025 End: March 04, 2025Justin A Brenna , DOAttending ProviderActiveStart: March 04, 2025 End: March 04, 2025 Team Status: Inactive Member Role/Relationship Status Gabriella Lakhani , MD Primary Care Provider Active Start: May [...] BE BASED ON THE PRIMARY CLINICAL RECORDS. [facility] provides no warranty or guarantee of the accuracy or completeness of information in this document.
--- OUTSIDE RECORDS SUMMARY | 2025-06-01 07:54 | XMS_ITS | CCD ---
Author Organization [facility] Care Team Providers Care Radiator Core Tester Name Role Phone LESVIA ., DR GLASGOW [...] Other Provider Levi Waterman DO Other Provider Paco Jimenez MD Other Provider Paco Jimenez MD Admit Provider Tony CARD, Paco Ace Attending Provider [phone] Dave RN, Padmini Other Provider Unavailable Yony RN, Annemarie Other Provider Unavailable Rah RN, Angle Other Provider Unavailable Anushka RN, Cindy Other Provider Unavailable Lux RN, Lena Other Provider Unavailable Jax RN, Liv Other Provider Unavailable Long CARD, Yonis Other Provider Kenzie Duffy DO Other Provider Bradley CARD, Tom Other Provider Connor Oliveros DO Other Provider Dhiraj CARD, Luis Alberto Other Provider [phone] Nick CARD, Brie Other Provider Chula CARBAJAL, Ammon Other Provider Oscar CARD, Phil Other Provider Unavailable Danyell Daniels APRN Other Provider Tracie CARD, Yakov Other Provider Juan Pablo Hatch MD Other Provider Ruperto CARD, Leeanna Other Provider Unavailable Vin Moran MD Other Provider Ammon Cochran DO Other Provider Reyes Tracey MD Other Provider Kyle Huerta MD Other Provider Kailey WAREHOUSE ATTENDANT-C, Sis Granados Other Provider Justyn QUILES, Yamilet [...] Provider Roselyn CARD, Luciana Hopkins Other Provider [phone] Diana Forde APRN Other Provider Lorena Hernandez [...] Provider Jose Antonio Dacosta MD Other Provider [phone] Phil Shaikh MD Other Provider Juan M Elise MD Other Provider Praveena Mast APRN Other Provider Yeimi Smith APRN Other Provider [phone] Mariam Moore RN Other Provider Unavailable Jose Antonio Camara MD Attending Provider Nishant Ceja DO Attending Provider Nishant Ceja DO Attending Provider [phone] Luis Alberto Hearn MD Other Provider Jose Antonio Camara MD Attending Provider [phone] Paco Jimenez MD Attending Provider Levi Waterman DO Other Provider UnavailJuan Pablo Diamond MD Other Provider Unavailable Marily CARD, Tino Other Provider Unavailable Marycruz CARD, Yan Other Provider Unavailable Michael Savage DO Other Provider Unavailable Nadege CARD, Ander Other Provider Unavailable Reina CARD, Ammon Attending Provider [phone] Ammon Huang MD Other Provider Brenna CARBAJAL, Nishant Cabrales Admit Provider Pee Lakhani MD Primary Care Provider [phone] Paco Jimenez MD Other Provider Nishant Ceja DO Attending Provider Brenna CARBAJAL, Nishant Cabrales Other Provider [phone] Unavailable Primary Care Provider UnavailPee Magallanes Primary [...] Unavailable Ander [employer] Unavailable Jose Antonio Daocsta Consulting Unavailable Phil Shaikh Consulting Unavailable Juan [...] Unavailable Pee Lakhani MD Primary Care Provider [phone] Nishant Ceja DO Attending Provider ELISABETH VIDAL Attending Unavailable ELISABETH VIDAL Attending Unavailable BARBARA WILLS Referring Unavailable MARITZA, JYOTI Referring Unavailable BARBARA WILLS Referring Unavailable BARBARA WILLS Referring Unavailable MARITZA, JYOTI Referring Unavailable MARITZA, JYOTI Referring Unavailable MARITZA, JYOTI Referring Unavailable BARBARA WILLS Referring Unavailable MARITZA, JYOTI Referring Unavailable Allergies Allergy ClassificationReported Allergen(s)Allergy TypeDate of OnsetReaction(s) Facility (11 sources)Penicillins; Translations: [PENICILLINS]Drug allergy (disorder) 01-25-5887Prvqltze of Throat, RashThe [facility] (11 sources)strawberry allergenic extract; Translations: [STRAWBERRY]Drug Utvvmmv85-93-9965Kzjrxdh Reaction, HivesThe [facility] (11 sources)Procaine; Translations: [procaine]Drug Njvcxwr88-31-2537Tlanism ReactionTrihealth [facility] (6 sources)PenicillinsDrug Exnmdmt70-47-2866Pdyfwkikvg, Swelling, UnknownNOMS Healthcare (1 source)PenicillinsDrug allergy (disorder)75-30-2347QyohehuwgTrihealth Good Samaritan Hospital Repository (1 source)strawberry allergenic extractDrug Qllcswg57-86-9668SpymtgcraTrihealth Good Samaritan Hospital Repository Medications Current Medications MedicationDrug Class(es)DatesSig (Normalized)Sig (Original)acetaminophen 500 mg oral tablet (19 sources)Start: 12-03-2024 End: 86-52-2888gtgj 2 tablets by mouth every eight hours [...] oral tablet (18 sources)Vitamin CStart: 12-03-2024 End: 52-60-6518gikt 1 tablet by mouth twice daily at mealtimeAscorbic Acid (Vitamin C) (Vitamin C) 500 mg Tablet Active 500 MG PO Twice daily with meals 14 7 0 December 12, 2024 1:20pm Complies with drug therapyaspirin 81 mg chewable tablet (20 sources)Platelet Aggregation Inhibitor, Nonsteroidal Anti-inflammatory Drug Start: 62-25-2785sbvm 1 tablet by mouth twice dailyAspirin 81 mg tablet,chewable Active 81 MG PO Twice daily 74 37 0 February 11, 2025 12:00am Complies with drug therapyStart: 12-01-2024 End: 65-40-9286gqun 1 tablet by mouth twice dailyAspirin 81 mg tablet Discontinued 81 MG PO Twice daily December 01, 2024 12:00am December 12, 2024 1:20pm aspirin 81 MG chewable tablet 81 mg 1 (one) time each day at the same time Activeatorvastatin 10 mg oral tablet (15 sources)HMG-CoA Reductase InhibitorStart: 08-65-0358kyrp 1 tablet by mouth at bedtimeAtorvastatin 10 mg tablet Active 10 MG PO Bedtime December 01, 2024 12:00am Complies with drug therapycalcium carbonate 1500 mg / cholecalciferol 500 unt oral capsule (18 sources)Vitamin DStart: 12-03-2024 End: 14-49-2575tazs 1 capsule by mouth twice dailyCalcium Carbonate-Vitamin D3 (Calcium 600 With Vitamin D3) 600 mg-12.5 mcg (500 unit) capsule Active 1 CAP PO Twice daily 60 0 December 12, 2024 1:20pm Complies with drug therapy cyclobenzaprine hydrochloride 10 mg oral tablet (4 sources)Muscle RelaxantStart: 94-29-0757sjcm 5-10 mg by mouth every eight hoursCyclobenzaprine 10 mg tablet Active 5 - 10 MG PO Q8H 30 14 0 February 11, 2025 12:00am Complies with drug therapydiphenhydrAMINE hydrochloride 25 mg oral capsule (9 sources)Histamine-1 Receptor AntagonistStart: 16-23-7099mdub 1 capsule by mouth once daily at bedtimeDiphenhydramine Hcl (Allergy (Diphenhydramine)) 25 mg capsule Active 25 MG PO Daily at bedtime December 01, 2024 12:00am Complies with drug therapydocusate sodium 100 mg oral capsule (4 sources)Start: 77-13-1133sepi 1 capsule by mouth twice dailyDocusate Sodium (Colace) 100 mg capsule Active 100 MG PO Twice daily 28 14 0 February 11, 2025 12:00am Complies with drug therapydoxycycline hyclate 100 mg oral tablet (4 sources)Tetracycline-class DrugStart: 33-46-6906bfpp 1 tablet by mouth twice dailyDoxycycline Hyclate 100 mg tablet Active 100 MG PO Twice daily 14 7 0 February 11, 2025 12:00am Complies with drug unnyhtw69 hr isosorbide mononitrate 30 mg extended release oral tablet (15 sources)Nitrate VasodilatorStart: 43-10-5966uxnp 1 tablet by mouth in the morning, then take 1 tablet by mouth every twenty-four hoursIsosorbide Mononitrate 30 mg tablet extended release 24 hr Active 30 MG PO .am December 01, 2024 12:00am Complies with drug therapyivermectin 3 mg oral tablet (6 sources)Antiparasitic, PediculicideStart: 94-50-9545duomatatyc (Stromectol) 3 MG tablet Indications: Rash and other nonspecific skin eruption Take 6 tablets today and repeat in 1 week 6 tablet 1 03/06/2025 Activelevothyroxine sodium 0.125 mg oral tablet (15 sources)l-ThyroxineStart: 83-74-7283hwhq 2 tablets by mouth in the morning Levothyroxine 125 mcg tablet Active 250 MCG PO .am December 01, 2024 12:00am Complies with drug therapymelatonin 12 mg oral tablet (9 sources)Start: 82-27-3312xvxu 1 tablet by mouth once daily at bedtime Melatonin 12 mg tablet Active 12 MG PO Daily at bedtime December 01, 2024 12:00am Complies with drug therapymetoprolol tartrate 50 mg oral tablet (15 sources)beta-Adrenergic BlockerStart: 55-19-9257qetc 1 tablet by mouth twice dailyMetoprolol Tartrate 50 mg tablet Active 50 MG PO Twice daily December 01, 2024 12:00am Complies with drug therapyoxyCODONE hydrochloride 5 mg oral tablet (19 sources)Opioid AgonistStart: 85-24-8836jtyu 1 tablet by mouth every four hours as needed for painOxycodone 5 mg tablet Active 5 MG PO Q4H as needed for Pain 42 7 0 February 11, 2025 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 #42 DO NOT FILL UNTIL 02/23/25 Complies with drug therapyStart: 86-92-7405rknq 2 tablets by mouth every four hours as needed for painOxycodone 5 mg Tablet Active 10 MG PO Every 4 hours as needed for Pain Scale 6 - 10 42 7 December 12, 2024 Complies with drug therapyStart: 12-03-2024 End: 82-11-5599tuca 1 tablet by mouth every six hours as needed for pain Oxycodone 5 mg Tablet Discontinued 5 MG PO Every 6 hours as needed for Pain Scale 4 - 7 0 0 December 03, 2024 December 12, 2024 1:21pmpredniSONE 5 mg oral tablet (8 sources)Start: 76-38-3314Oalnjbfylq 5 mg tablet Active 5 MG PO daily 30 10 0 March 04, 2025 12:00am Take 5 pills by mouthx2 days, take 4 pills by mouth x2 days, take 3 pills by mouth x2 days, take 2 pills by mouth x2 days, take 1 pill by mouth x2 days. Complies with drug therapytamsulosin hydrochloride 0.4 mg oral capsule (15 sources)alpha-Adrenergic BlockerStart: 98-88-4459plpq 1 capsule by mouth once dailyTamsulosin 0.4 mg capsule Active 0.4 MG PO Daily December 01, 2024 12:00am Complies with drug therapytiZANidine 4 mg oral tablet (15 sources)Central alpha-2 Adrenergic AgonistStart: 35-25-5191rjnq 2 tablets by mouth once daily at bedtimetiZANidine (Zanaflex) 4 MG tablet TAKE 2 TABLETS BY MOUTH EVERY DAY AT BEDTIME 02/13/2025 ActiveStart: 65-86-3648xwpr 1 tablet by mouth at bedtimeTizanidine 4 mg tablet Active 4 MG PO Bedtime December 01, 2024 12:00am Complies with drug therapytopiramate 100 mg oral tablet (20 sources)Start: 20-99-7345zgzq 2 tablets by mouth at bedtimeTopiramate 100 mg tablet Active 200 MG PO Bedtime December 01, 2024 12:00am Complies with drug therapyStart: 94-90-8466bauq 1 tablet by mouth in the morningTopiramate (Topamax) 100 mg tablet Active 100 MG PO .am December 01, 2024 12:00am Complies with drug therapytraMADol hydrochloride 50 mg oral tablet (8 sources)Opioid AgonistStart: 02-11-2025 End: 43-45-6358bkur 1 tablet by mouth every four hours as needed for pain Tramadol 50 mg tablet Active 50 MG PO Q4H as needed for Pain 42 7 0 February 11, 2025 12:51pm 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 #42 okay to fill pre op 02/11/2025 Complies with drug therapytriamcinolone acetonide 0.001 mg/mg topical ointment (10 sources)CorticosteroidStart: 88-93-4536gpvfrvpzjowpn (Kenalog) 0.1 % ointment Indications: Stasis dermatitis of both legs Apply (1g) to affected areas (legs/arms), up to twice a day when flared, do not use one the face, groin, or underarms, 30 day supply 453.6 g 5 04/24/2025 ActiveStart: 03-06-2025 End: 20-15-1874pdblexwptslsf (Kenalog) 0.1 % cream Indications: Rash and other nonspecific skin eruption Apply (1g) to affected areas (legs/arms), up to twice a day when flared, do not use one the face, groin, or underarms, 30 day supply 454 g 3 03/06/2025 04/24/2025 DiscontinuedStart: 24-71-8582Sqkrbvilcntbn Acetonide 0.5 % cream Active 1 APPLIC TOPICAL Twice daily 15 30 2 February 25, 2025 12:00am RLE dermatitis Complies with drug therapy Completed/Discontinued Medications MedicationDrug Class(es)DatesSig (Normalized)Sig (Original)120 actuat budesonide 0.16 mg/actuat / formoterol fumarate 0.0045 mg/actuat metered dose inhaler (9 sources)Corticosteroid, beta2-Adrenergic AgonistStart: 12-12-2024 End: 70-87-6477dzfo 1 puff(s) by inhalation twice dailyBudesonide-Formoterol (Symbicort) 160-4.5 mcg/actuation Hfa Aerosol Inhaler Discontinued 2 PUFF INHA LATION Twice daily 10.2 0 December 12, 2024 12:00am February 06, 2025 12:16pm diclofenac sodium 75 mg delayed release oral tablet (20 sources)Nonsteroidal Anti-inflammatory DrugStart: 12-01-2024 End: 93-57-1300scay 1 tablet by mouth once dailyDiclofenac Sodium 75 mg tablet,delayed release (DR/EC) Discontinued 75 MG PO Daily 30 0 December 03, 2024 11:46am December 12, 2024 1:20pmtake 1 tablet by mouth twice daily as needed diclofenac (Voltaren) 75 MG EC tablet Take 75 mg by mouth 2 (two) times a day as needed Activedocusate sodium 50 mg / sennosides, jail 8.6 mg oral tablet (9 sources)Start: 12-03-2024 End: 42-86-1895dfjz 2 tablets by mouth twice dailySennosides-Docusate Sodium 8.6-50 mg Tablet Discontinued 2 TAB PO Twice daily 0 December 03, 2024 12:00am December 12, 2024 1:21pmpolyethylene glycol 3350 28704 mg powder for oral solution (9 sources)Osmotic LaxativeStart: 12-03-2024 End: 86-79-0216Gekvhkziuuhy Glycol 3350 (Healthylax) 17 gram Powder In Packet Discontinued 17 GM PO Daily 0 December 03, 2024 12:00am February 06, 2025 12:17pm rivaroxaban 10 mg oral tablet (9 sources)Factor Xa InhibitorStart: 12-03-2024 End: 46-48-7229csow 1 tablet by mouth once dailyRivaroxaban (Xarelto) 10 mg Tablet Discontinued 10 MG PO Daily 0 December 03, 2024 12:00am November 1:21pm Problems Active Problems Problem ClassificationProblemDateDocumented DateEpisodic/ChronicAcute and unspecified renal failure (1 source)Acute kidney failure, unspecified; Translations: [ACUTE KIDNEY FAILURE UNSPECIFIED]Onset: 09-31-0188ZzpbhviwQkfyrmxbippape/social admission (18 sources)Other reduced mobility; Translations: [Impaired mobility and activities of daily living]Onset: 634313-12-8662YhkjvrycZkwgums-jrgcwbi disorders (20 sources)Alcohol dependence, uncomplicated; Translations: [Alcohol dependence]Onset: 984516-91-5968YczfsmxJxbuojr dysrhythmias (3 sources)Bradycardia, unspecified; Translations: [Palpitations]Onset: 78-01-5809LqnkvulwHndddfa obstructive pulmonary disease and bronchiectasis (19 sources)Emphysema, unspecified; Translations: [Chronic obstructive lung disease]Onset: 335182-93-5867WszromvYbnpiagnks heart failure; nonhypertensive (1 source)Unspecified diastolic (congestive) heart failure; Translations: [UNSPECIFIED DIASTOLIC HEART FAILURE]Onset: 66-29-2910DsbvohvHyiduiqy atherosclerosis and other heart disease (18 sources)Coronary arteriosclerosis; Translations: [Atherosclerotic heart disease of [place] coronary artery without angina pectoris]Onset: 12-03-2024 20-76-0417WafgbxoVhxlnxnl of white blood cells (1 source)Elevated white blood cell count, unspecified; Translations: [ELEVATED WHITE BLOOD CELL COUNT UNS]Onset: 72-97-2318AsxixdtIenzgvwlj of lipid metabolism (20 sources)Hyperlipidemia; Translations: [Hyperlipidemia, unspecified]Onset: 586821-12-5927FpdxceeE Codes: Fall (1 source)Unspecified fall, initial encounter; Translations: [UNSPECIFIED FALL INITIAL ENCOUNTER]Onset: 65-36-6608ZjpypgbmUqpwseck; convulsions (20 sources)Epilepsy, unspecified, not intractable, without status epilepticus; Translations: [Seizure disorder]Onset: 524042-26-4672FaywrwxSpwuifwxs hypertension (20 sources)Essential (primary) hypertension; Translations: [Hypertensive disorder]Onset: 717996-44-5356HxdifmsIwomz and electrolyte disorders (11 sources)Hypo-osmolality and hyponatremia; Translations: [Dehydration]Onset: 418081-27-3004DgnxzeelRaffibeg of neck of femur (hip) (20 sources)Fracture of neck of femur; Translations: [Fracture of unspecified part of neck of unspecified femur, initial encounter for closed fracture]Onset: 006085-35-7077IojapsznEknnjsbn; including migraine (1 source)Headache; including migraine; Translations: [HEADACHE UNSPECIFIED] Onset: 65-36-0674Fazzlcxypyd of prostate (20 sources)Benign prostatic hyperplasia; Translations: [Benign prostatic hyperplasia without lower urinary tract symptoms]Onset: ChronicHypertension with complications and secondary hypertension (1 source)Hypertensive heart disease with heart failure; Translations: [HTN HEART DISEASE W/HEART FAIL]Onset: 59-26-0205McqkudeMqyvxvawvbua injury (1 source)Other specified intracranial injury with loss of consciousness of 30 minutes or less, initial encounter; Translations: [OTH SPECIFIED ICI LOC 30 MIN/< INIT]Onset: 01-25-1836MenmtgelHmnfxqq and fatigue (4 sources)Weakness; Translations: [WEAKNESS]Onset: 36-32-0161CszszzcvDjdjhninbr disorders (1 source)Hormone replacement therapy; Translations: [HORMONE REPLACEMENT THERAPY]Onset: 14-49-8820MeuelwwbKighzcfmpeqkcd (1 source)Unilateral primary osteoarthritis, left hip; Translations: [UNI PRIM OSTEOARTHRITIS LT HIP]Onset: 95-26-5997QdwqqckNkjse aftercare (1 source)Other oysterman (current) drug therapy; Translations: [OTH BULBS FARMWORKER CURRENT DRUG THERAPY]Onset: 43-07-6533LapwjhjdWborz aftercare (1 source)Removal of sutures done; Translations: [Encounter for removal of sutures]50-78-2018LoynbvptZpeic bone disease and musculoskeletal deformities (20 sources)Avascular necrosis of bone; Translations: [Idiopathic aseptic necrosis of unspecified bone]33-94-8098JclocdkJdshx bone disease and musculoskeletal deformities (7 sources)Idiopathic aseptic necrosis of unspecified bone; Translations: [Aseptic necrosis of bone, site unspecified]Onset: 961422-93-4542Brbogky Other bone disease and musculoskeletal deformities (20 sources)Avascular necrosis of bone of hip; Translations: [Idiopathic aseptic necrosis of right femur]94-18-2658GhtgoshNopck bone disease and musculoskeletal deformities (2 sources)Idiopathic aseptic necrosis of right femur; Translations: [Aseptic necrosis of head and neck of femur]19-87-7574BqzzhmbGwbub bone disease and musculoskeletal deformities (2 sources)Idiopathic aseptic necrosis of left femur; Translations: [Aseptic necrosis of head and neck of femur]14-05-6670TvonqwiGftfm connective tissue disease (20 sources)History of total hip arthroplasty; Translations: [Presence of unspecified artificial hip joint]84-80-2528DyktznlLiuhh connective tissue disease (7 sources)Presence of unspecified artificial hip joint; Translations: [Hip joint replacement]Onset: 939538-12-0698QrmdcocYriyd connective tissue disease (2 sources)Presence of right artificial hip joint; Translations: [Hip joint replacement]98-93-2112VdpxgegFsfrl connective tissue disease (1 source)Arthrodesis status; Translations: [ARTHRODESIS STATUS]Onset: 90-72-3875CgsczjxuVtfhm diseases of veins and lymphatics (6 sources)Stasis dermatitis; Translations: [Venous insufficiency (chronic) (peripheral)]33-36-3828SdcwevzkIqqin diseases of veins and lymphatics (1 source)Venous insufficiency (chronic) (peripheral); Translations: [Venous insufficiency (chronic) (peripheral)]Onset: 72-72-3428ZvhgotveKgsnb diseases of veins and lymphatics (1 source)Disorder of vein of lower extremity; Translations: [Venous insufficiency (chronic) (peripheral)]43-06-6258BocreoukRegfh lower respiratory disease (3 sources)Shortness of breath; Translations: [SHORTNESS OF BREATH]Onset: 37-28-6168PzfxjzpmIgmwq lower respiratory disease (2 sources)Other forms of dyspnea; Translations: [Other forms of dyspnea]Onset: 43-80-8414KxwzawogLptzb nervous system disorders (1 source)Other chronic pain; Translations: [OTHER CHRONIC PAIN]Onset: 90-12-9262WyendeoUlnxr non-traumatic joint disorders (20 sources)Pain in right shoulder; Translations: [Right shoulder pain]Onset: 378429-62-6932QmwczaebTsvdr skin disorders (7 sources)Eruption; Translations: [Rash and other nonspecific skin eruption] 27-25-8714NcwmgzauFrvxsjjwu (except that caused by tuberculosis or sexually transmitted disease) (1 source)Pneumonia (except that caused by tuberculosis or sexually transmitted disease); Translations: [PNEUMONIA D/T CORONAVIRUS DIS 2019]Onset: 04-05-2022 Screening and history of mental health and substance abuse codes (1 source)Personal history of nicotine dependence; Translations: [PERSONAL HISTORY OF NICOTINE DEPEND]Onset: 81-43-3654GtnunaibUtyx and subcutaneous tissue infections (6 sources)Cellulitis of right lower limb; Translations: [Cellulitis of right lower limb]Onset: 285646-59-7902MpgajoykPtfbbfmxedp; intervertebral disc disorders; other back problems (4 sources)Other intervertebral disc displacement, lumbar region; Translations: [OTH IV DISC DISPLACEMENT LUMBAR RGN]Onset: 31-23-5726HvmldvnKnmxfstvzpv; intervertebral disc disorders; other back problems (6 sources)Radiculopathy, lumbosacral region; Translations: [Radiculopathy, cervical region]Onset: 47-44-5422QwqxzxndFxqniuy and strains (1 source)Sprain of unspecified ligament of left ankle, initial encounter; Translations: [SPRAIN UNS LIGAMENTLT ANKLE INIT]Onset: 46-57-1805Rnpydaql Substance-related disorders (1 source)Nicotine dependence, cigarettes, uncomplicated; Translations: [NICOTINE DEPEND CIGARETTES UNCOMP]Onset: 07-77-5254JopuuedSlatige disorders (20 sources)Hypothyroidism, unspecified; Translations: [Hypothyroidism]Onset: 258727-49-3040UouohiuVdarlbnnramn (3 sources)CONTACT W/AND (SUSP) EXPOS COVID-19; Translations: [CONTACT W/AND (SUSP) EXPOS COVID-19]Onset: 55-61-6637Fytakqsaytyt (3 sources)LOW BACK PAIN, UNSPECIFIED; Translations: [LOW BACK PAIN, UNSPECIFIED]Onset: 56-17-8623Aybmxpiyosez (1 source)PERSONAL HISTORY OF COVID-19; Translations: [PERSONAL HISTORY OF COVID-19]Onset: 89-33-0697Gjmitpgpeeef (2 sources)COUGH, UNSPECIFIED; Translations: [COUGH, UNSPECIFIED]Onset: 08-35-2087Zqngyuxosrqm (16 sources)Please arrange a follow-up appointment once [...] the cause of diseases classified elsewhere] Onset: 76-00-2422SlonjucuRrnnzep obstructive pulmonary disease and bronchiectasis (2 sources)Bronchitis, not specified as acute or chronic; Translations: [BRONCHITIS NOT SPEC ACUTE/CHRON]Onset: 16-39-4148DoymybhbVjjoybddgz and other anemia (1 source)Anemia, unspecified; Translations: [ANEMIA UNSPECIFIED]Onset: 14-03-1504JqttxkpaHztrely (1 source)Other specified mycoses; Translations: [OTHER SPECIFIED MYCOSES]Onset: 46-87-7464XmovvsupEpzpzeigcbh chest pain (7 sources)Chest pain, unspecified; Translations: [Other chest pain]Onset: 94-56-0947IwnhlrwvHhmjx connective tissue disease (1 source)Myalgia, unspecified site; Translations: [MYALGIA UNSPECIFIED SITE] Onset: 00-79-8611YsjjgkimCcerg gastrointestinal disorders (1 source)Dysphagia, unspecified; Translations: [DYSPHAGIA UNSPECIFIED]Onset: 20-77-7987IbhouxkyJkzzl screening for suspected conditions (not mental disorders or infectious disease) (1 source)Other specified abnormal findings of blood chemistry; Translations: [OTH SPEC ABNORMAL FINDINGS BLDCHEM]Onset: 37-32-9978WmxlfzmsAvevfsynt (except that caused by tuberculosis or sexually transmitted disease) (4 sources)Pneumonia, unspecified organism; Translations: [PNEUMONIA UNSPECIFIED ORGANISM]Onset: 69-23-7105CfhdyhhpVoqjaqhl codes; unclassified (1 source)Other specified health status; Translations: [Other specified health status]Onset: 58-00-2259WryjcyrcCylduhhuvgtc (1 source)LOW BACK PAIN, UNSPECIFIED; Translations: [LOW BACK PAIN, UNSPECIFIED] Onset: 21-93-6598Fhheewpmnkdl (1 source)COUGH, UNSPECIFIED; Translations: [COUGH, UNSPECIFIED]Onset: 74-54-8743Xbkarwhechny (1 source)CONTACT W/AND (SUSP) EXPOS COVID-19; Translations: [CONTACT W/AND (SUSP) EXPOS COVID-19]Onset: 03-17-2022 Results Test NameValueInterpretationReference SponiOcqquswb62py [id number] echo result from : MD Sierra Elise [...] the next 5-7 days. [facility] fax[facility] to [facility]. Patient verbalized understanding. Surgery clearance fax[facility] to [facility] HospitalOffice Visiton 24-64-0975Iezzcg-up [id number] Rehan Trejo 1965 Provider Department Center 05/22/2025 42750-QHSEDYELISABETH DAO TOMMY [place] Family History Family Status - Relation Status Age at Mother Alive Father Level of Service:69160 ID OFFICE/OUTPATIENT ESTABLISHED MOD MDM 30 MIN Reason for Visit and Comments: Follow-up [442342] - Surgery clearance Left hip replacement Jun 01 Dr. Zhang loop recorderMobitz type 1 atrioventricular block [Other] Migraine [923470] Hyperlipidemia [182] Ostium secundum type atrial septal defect [Other] Peripheral venous insufficiency [Other] Hypertension [971907] NSTEMI [Other] Coronary Artery Disease [187][facility] HospitalOrders Onlyon 79-33-8472Jdifnb [id number] Rehan Trejo 1965 Provider Department Center 05/10/2025 [facility] No family history on fileNormalUniversBrown Memorial HospitalLesion biopsy on 73-65-1553Ualh of biopsy: punch Informed consent: discussed and [...] used: 2 Specimen sent for: H&E Photo [facility] HealthcareOrders Onlyon 22-35-2589Wyrqtc Only [id number] Rehan Trejo 1965 M Date Provider Department Center 03/09/2025 Edd[facility] CARD [facility] HeartVAS No family history on fileNormalUniversity of Ut Health HendersonBasic Metabolic Panelon 13-25-9952Lnegeyzgxe Clr Calc Njqgwnej923.[address] [place] [address] Physician GroupComment on above:Result Comment: PERFORMED BY: [address] [place] [address] PATHOLOGIST [employer] SOFIE MONTEIRO M.D.Performed By: #### CBC, CMP wRFX A1C #### [facility] [address] [place] [id number] USAGFR/1.73 sq M.predicted MDRD (S/P/Bld) [Vol rate/Area] mL/min/{1.73_m2}NormalThe [facility] Physician [facility] Of MeridianComment on above:Performed By: #### CBC, CMP wRFX A1C #### [facility] [address] [phone] USABasophils [#/volume] in Blood by Automated countOrdered By: Nishant Ceja on 61-73-4755Gumufmiut (Bld) [#/Vol]0.0 10*3/uL0.0-0.2 [facility]itan HospitalComment on above:Result Comment: PERFORMED BY: [address] [place] [id number] PATHOLOGIST [employer] SOFIE MONTEIRO M.D.Performed By: #### CBC, CMP wRFX A1C #### [place] [id number] USABasophils/100 leukocytes in Blood by Automated count Ordered By: Nishant Ceja on 19-64-9959Csddyafgb/100 WBC (Bld)0.5 %.[facility]aritan HospitalComment on above:Performed By: #### CBC, CMP wRFX A1C #### [place] [address] USACalcium [Mass/volume] in Serum or PlasmaOrdered By: Nishant Ceja on 03-05-4359Pgwetbn [Mass/Vol]8.2 mg/dLLow8.6-10.3FFulton County Health CenterComment on above:Performed By: #### CBC, CMP wRFX A1C #### [place] [address] USACarbon dioxide, total [Moles/volume] in Serum or Plasma Ordered By: Nishant Ceja on 48-63-2024BO0 [Moles/Vol]19.9 mmol/LLow21.0-31.0 [facility]itan HospitalComment on above:Performed By: #### CBC, CMP wRFX A1C #### [place] [id number] USAChloride [Moles/volume] in Serum or PlasmaOrdered By: Nishant Ceja on 01-57-8115Enrctjlg [Moles/Vol]102 mmol/Q01-091IdyytdiqqTrihealth Good Samaritan HospitalComment on above:Performed By: #### CBC, CMP wRFX A1C #### [facility] [address] [place], [place] [address] USAComplete Blood Count Auto Diffon 06-46-2080Gmbg Corpuscular HGB Conc33.4 g/rEOqmico35.5-35.6[facility] Physician GroupComment on above:Performed By: #### CBC, CMP wRFX A1C #### [address] [place] [address] USANRBC%0.1 /100{WBC}Normal0-0.5[facility] Physician Group Comment on above:Performed By: #### CBC, CMP wRFX A1C #### [facility] [address] [place] [address] USAWhite Blood Count6.9 [CFU]/mLNormal4.1-10.5[facility] Physician GroupComment on above:Performed By: #### CBC, CMP wRFX A1C #### [place] [address] USACreatinine [Mass/volume] in Serum or PlasmaOrdered By: Nishant Ceja on 83-15-4345Cxmymvvyqb [Mass/Vol]0.76 mg/dL0.70-1.30[facility]itan HospitalComment on above:Performed By: #### CBC, CMP wRFX A1C #### [facility] [address] [place] [address] USAEosinophils [#/volume] in Blood by Automated countOrdered By: Nishant Ceja on 12-03-2211Ledwoviqnvl (Bld) [#/Vol]0.6 10*3/uLHigh0.0-0.45 [facility] HospitalComment on above:Performed By: #### CBC, CMP wRFX A1C #### [facility] [address] [place] [address] USAEosinophils/100 leukocytes in Blood by Automated count Ordered By: Nishant Ceja on 31-24-6968Ybrfsnocpex/100 WBC (Bld)8.6 %.[facility]itan HospitalComment on above:Performed By: #### CBC, CMP wRFX A1C #### [facility] [address] [place] [address] USAErythrocyte distribution width [Ratio] by Automated count Ordered By: Nishant Ceja on 69-96-5442Srghxodikkm distribution width (RBC) [Ratio]13.5 %12.0-14.8[facility]aritan HospitalComment on above: Performed By: #### CBC, CMP wRFX A1C #### [address] [place] [address] USAErythrocytes [#/volume] in Blood by Automated countOrdered By: Nishant Ceja on 85-63-5146ZPG (Bld) [#/Vol]4.31 10*6/uL3.90-5.60[facility] HospitalComment on above:Performed By: #### CBC, CMP wRFX A1C #### [facility] [address] [id number] USAGlucose [Mass/volume] in Serum or PlasmaOrdered By: Nishant Ceja on 88-95-2703Kiwwdvm [Mass/Vol]77 mg/oO65-016XdnuluyaqTrihealth Good Samaritan HospitalComment on above:ADA recommended reference rangeRandom Glucose [...] By: #### CBC, CMP wRFX A1C #### [place] [phone] USAHematocrit [Volume Fraction] of Blood by Automated count Ordered By: Nishant Ceja on 21-91-6434Lhalgtrklh (Bld) [Volume fraction]42.9 % 38.8-50.0[facility] HospitalComment on above:Performed By: #### CBC, CMP wRFX A1C #### [address] [address] USAHemoglobin [Mass/volume] in BloodOrdered By: Nishant Ceja on 09-46-1709Lwlzeisytc (Bld) [Mass/Vol]14.3 g/dL13.0-17.0[facility] HospitalComment on above:Performed By: #### CBC, CMP wRFX A1C #### [address] [address] USALeukocytes [#/volume] corrected for nucleated erythrocytes in Blood by Automated counOrdered By: Nishant Ceja on 12-51-2061OYV corrected for nucl RBC Auto (Bld) [#/Vol]6.9 10*3/uL4.1-10.5FFulton County Health CenterLeukocytes [#/volume] in Blood by Automated countOrdered By: Nishant Ceja on 10-84-5263CAX (Bld) [#/Vol]6.9 10*3/uL4.1-10.5FFulton County Health CenterComment on above:Performed By: #### CBC, CMP wRFX A1C #### [facility] [address] [place] [id number] USALymphocytes [#/volume] in Blood by Automated countOrdered By: Nishant Ceja on 37-40-6056Vwlebudejwe (Bld) [#/Vol]2.1 10*3/uL1.00-4.8 [facility] HospitalComment on above:Performed By: #### CBC, CMP wRFX A1C #### [facility] [address] [place] [id number] USALymphocytes/100 leukocytes in Blood by Automated count Ordered By: Nishant Ceja on 33-80-1440Kxehknkzgaq/100 WBC (Bld)31.0 %.[facility] HospitalComment on above:Performed By: #### CBC, CMP wRFX A1C #### [facility] [address] [place], [place] [address] [facility] [Entitic mass] by Automated countOrdered By: Nishant Ceja on 79-99-5358KOO (RBC) [Entitic mass]33.2 pg27.5-35.2FFulton County Health CenterComment on above:Performed By: #### CBC, CMP wRFX A1C #### [facility] [address] [place], [place] [address] [facility] OKLA[facility] CITYHC Auto (RBC) [Mass/Vol]Ordered By: Nishant Ceja on 73-37-6652CLVV (RBC) [Mass/Vol]33.4 g/dL32.5-35.6FFulton County Health CenterMCV [Entitic volume] by Automated countOrdered By: Nishant Ceja on 63-58-8598EQE (RBC) [Entitic vol]99.5 fL83.5-101[facility] HospitalComment on above:Performed By: #### CBC, CMP wRFX A1C #### [facility] [address] [place] [phone] USAMonocytes [#/volume] in Blood by Automated countOrdered By: Nishant Ceja on 71-37-7688Khnmqgtey (Bld) [#/Vol]0.7 10*3/uL0.0-0.8 [facility] HospitalComment on above:Performed By: #### CBC, CMP wRFX A1C #### [facility] [address] [place] [address] USAMonocytes/100 leukocytes in Blood by Automated count Ordered By: Nishant Ceja on 48-93-6930Bklagidos/100 WBC (Bld)10.5 %.[facility] HospitalComment on above:Performed By: #### CBC, CMP wRFX A1C #### [facility] [address] [place] [phone] USANeutrophils [#/volume] in Blood by Automated countOrdered By: Nishant Ceja on 76-40-0049Usmsxnehtxb (Bld) [#/Vol]3.4 10*3/uL1.8-7.7 [facility] HospitalComment on above:Performed By: #### CBC, CMP wRFX A1C #### [facility] [address] [place] [id number] USANeutrophils/100 leukocytes in Blood by Automated count Ordered By: Nishant Ceja on 76-59-5140Nwaevgbefhd/100 WBC (Bld)49.4 %.[facility] HospitalComment on above:Performed By: #### CBC, CMP wRFX A1C #### [facility] [address] [place] [phone] USANo Panel InformationOrdered By: Nishant Ceja on 84-00-9021Brdczsnbj GFR (CKD-EPI)> 60.0 mL/MinTrihealth Good Samaritan Hospital Pharmacy Creatinine Clearance (Ypzq557.16[facility] Nucleated erythrocytes [Presence] in Blood by Automated countOrdered By: Nsihant Ceja on 47-50-6445Xuyprazpy RBC Auto Ql (Bld)0.1 /100{WBC}0-0.5FFulton County Health CenterPlatelet mean volume [Entitic volume] in Blood by Automated countOrdered By: Nishant Ceja on 37-72-3778Nrbgbmmp mean volume (Bld) [Entitic vol]8.5 fL6.6-10.1FFulton County Health CenterComment on above: Performed By: #### CBC, CMP wRFX A1C #### [facility] [address] [place] [address] USAPlatelets [#/volume] in Blood by Automated countOrdered By: Nishant Ceja on 01-18-8437Sromvhccs (Bld) [#/Vol]164 10*3/uR594-634 [facility] HospitalComment on above:Performed By: #### CBC, CMP wRFX A1C #### [facility] [address] [place] [address] USAPotassium [Moles/volume] in Serum or PlasmaOrdered By: Nishant Ceja on 47-97-4572Xaibfmfpo [Moles/Vol]4.0 mmol/L3.5-5.1FFulton County Health CenterComment on above:Performed By: #### CBC, CMP wRFX A1C #### [facility] [address] [place] [address] USASerum or plasma anion gap determinationOrdered By: Nishant Ceja on 98-64-3130Htnhh gap [Moles/Vol]12.1 mmol/L6.0-15.0[facility] HospitalComment on above:Performed By: #### CBC, CMP wRFX A1C #### [facility] [address] [place] [address] USASodium [Moles/volume] in Serum or PlasmaOrdered By: Nishant Ceja on 26-96-6518Ovxyik [Moles/Vol]130 mmol/THzw817-188VrwdhtvxoTrihealth Good Samaritan HospitalComment on above:Performed By: #### CBC, CMP wRFX A1C #### [facility] [address] [place] [address] USAUrea nitrogen [Mass/volume] in Serum or PlasmaOrdered By: Nishant Ceja on 46-84-1620Tval nitrogen [Mass/Vol]11 mg/dL7-25[facility] HospitalComment on above:Performed By: #### CBC, CMP wRFX A1C #### [facility] [address] [place] [address] USABasic Metabolic Panelon 18-02-3955Rggtk gap [Moles/Vol]8.9 mmol/LNormal6.0-15.0[facility] Physician [facility] Of MeridianComment on above:Performed By: #### CBC, BMP #### [facility] [address] [place] [address] USACalcium [Mass/Vol]8.7 mg/dLNormal8.6-10.3[facility] Physician [facility] Of MeridianComment on above:Performed By: #### CBC, BMP #### [facility] [address] [place] [address] USAChloride [Moles/Vol]98 mmol/MMrznfa75-767Hhs Kindred Hospital PittsburghComment on above:Performed By: #### CBC, BMP #### [facility] [address] [place] [address] USACO2 [Moles/Vol]24.2 mmol/LOfvtkr09.0-31.0The [facility]red Hospital PittsburghComment on above:Performed By: #### CBC, BMP #### [place] [address] USACreatinine [Mass/Vol]0.63 mg/dLLow0.70-1.30[facility] Physician [facility] Of MeridianComment on above:Performed By: #### CBC, BMP #### [facility] [address] [place] [address] USACreatinine Clr Calc Bdrbujsg202.04NormTriHealth Good Samaritan Hospitale [facility] Physician [facility] Hospital Of MeridianComment on above:Result Comment: PERFORMED BY: [place] [address] PATHOLOGIST [employer] SOFIE MONTEIRO M.D.Performed By: #### CBC, BMP #### [address] [place] [address] USAGFR/1.73 sq M.predicted MDRD (S/P/Bld) [Vol rate/Area] mL/min/{1.73_m2}NormalThe [facility] Physician GroupComment on above:Performed By: #### CBC, BMP #### [place] [address] USAGlucose [Mass/Vol]88 mg/yCNfbcxn28-907Uyi [facility] Physician GroupComment on above:Result Comment: Random Glucose Reference Range is dependent on time and content of last meal. Glucose of more than 200 mg/dL in a nonstressed, ambulatory subject supports the diagnosis of Diabetes Mellitus. ADA recommended reference rangePerformed By: #### CBC, BMP #### [place] [address] USAPotassium [Moles/Vol]4.1 mmol/LNormal3.5-5.1[facility] Physician GroupComment on above:Performed By: #### CBC, BMP #### [place] [address] USASodium [Moles/Vol]127 mmol/VGqy520-253Qjz [facility] Physician GroupComment on above:Performed By: #### CBC, BMP #### [place] [address] USAUrea nitrogen [Mass/Vol]7 mg/dLNormal7-25[facility] Physician GroupComment on above:Performed By: #### CBC, BMP #### [place] [address] USAComplete Blood Count Auto Diffon 48-59-9860Kumbyjfks (Bld) [#/Vol]0.1 10*3/uLNormal0.0-0.2[facility] Physician GroupComment on above: Result Comment: PERFORMED BY: [place] [address] PATHOLOGIST [employer] SOFIE MONTEIRO M.D.Performed By: #### CBC, BMP #### [place] [address] USABasophils/100 WBC (Bld)1.2 %Normal.[facility] Physician GroupComment on above:Performed By: #### CBC, BMP #### [place] [address] USAEosinophils (Bld) [#/Vol]0.6 10*3/uLHigh0.0-0.45[facility] Physician GroupComment on above:Performed By: #### CBC, BMP #### [place] [address] USAEosinophils/100 WBC (Bld)6.7 %Normal.[facility] Physician GroupComment on above:Performed By: #### CBC, BMP #### [place] [address] USAErythrocyte distribution width (RBC) [Ratio]13.1 %Normal 12.0-14.8[facility] Physician GroupComment on above:Performed By: #### CBC, BMP #### [place] [address] USAHematocrit (Bld) [Volume fraction]42.1 %Posubt83.8-50.0[facility] Physician GroupComment on above:Performed By: #### CBC, BMP #### [place] [address] USAHemoglobin (Bld) [Mass/Vol]14.0 g/oTZqvtiy77.0-17.0[facility] Physician GroupComment on above:Performed By: #### CBC, BMP #### [place] [address] USALymphocytes (Bld) [#/Vol]2.6 10*3/uLNormal1.00-4.8[facility] Physician GroupComment on above:Performed By: #### CBC, BMP #### [place] [address] USALymphocytes/100 WBC (Bld)29.7 %Normal.The [facility] Physician GroupComment on above:Performed By: #### CBC, BMP #### [address] [place] [address] USAH (RBC) [Entitic mass]33.4 plBwhsag92.5-35.2The [facility] Physician GroupComment on above:Performed By: #### CBC, BMP #### [facility] [address] [place] [address] USAMCV (RBC) [Entitic vol]100.2 gRDhuhjy03.5-101The [facility] Physician GroupComment on above:Performed By: #### CBC, BMP #### [facility] [address] [place] [address] USAMean Corpuscular HGB Conc33.3 g/vPAroaav37.5-35.6[facility] Physician GroupComment on above:Performed By: #### CBC, BMP #### [place] [address] USAMonocytes (Bld) [#/Vol]0.8 10*3/uLNormal0.0-0.8[facility] Physician GroupComment on above:Performed By: #### CBC, BMP #### [place] [address] USAMonocytes/100 WBC (Bld)8.8 %Normal.The [facility] Physician GroupComment on above:Performed By: #### CBC, BMP #### [place] [address] USANeutrophils (Bld) [#/Vol]4.7 10*3/uLNormal1.8-7.7The [facility] Physician GroupComment on above:Performed By: #### CBC, BMP #### [place] [id number] USANeutrophils/100 WBC (Bld)53.6 %Normal.The [facility] Physician GroupComment on above:Performed By: #### CBC, BMP #### [place] [address] USANRBC%0.2 /100{WBC}Normal0-0.5[facility] Physician Group Comment on above:Performed By: #### CBC, BMP #### [facility] [address] [place] [address] USAPlatelet mean volume (Bld) [Entitic vol]8.6 fLNormal 6.6-10.1The [facility] Physician GroupComment on above:Performed By: #### CBC, BMP #### [facility] [address] [place] [address] USAPlatelets (Bld) [#/Vol]186 10*3/zGMszxme819-970Mit [facility] Physician GroupComment on above:Performed By: #### CBC, BMP #### [place] [address] USARBC (Bld) [#/Vol]4.20 10*6/uLNormal3.90-5.60The [facility] Physician GroupComment on above:Performed By: #### CBC, BMP #### [place] [address] USAWBC (Bld) [#/Vol]8.8 10*3/uLNormal4.1-10.5[facility] Physician GroupComment on above:Performed By: #### CBC, BMP #### [place] [address] USAWhite Blood Count8.8 [CFU]/mLNormal4.1-10.5[facility] Physician GroupComment on above:Performed By: #### CBC, BMP #### [place] [address] USAAlanine aminotransferase [Enzymatic activity/volume] in Serum or PlasmaOrdered By: Nishant Ceja on 20-91-3539GDA [Catalytic activity/Vol]45 U/LNormal7-52[facility] HospitalComment on above: Performed By: #### CBC, CMP wRFX A1C #### [facility] [address] [place] [address] USAAlbumin [Mass/volume] in Serum or Plasma by Bromocresol green (BCG) dye binding methoOrdered By: Nishant Ceja on 31-55-4216Gtbgclx BCG dye [Mass/Vol]4.2 g/dL3.5-5.7FFulton County Health CenterAlkaline phosphatase [Enzymatic activity/volume] in Serum or PlasmaOrdered By: Nishant Ceja on 37-63-5323AHV [Catalytic activity/Vol]117 U/XWyej83-896XjhjqycwrTrihealth Good Samaritan HospitalComment on above:Result Comment: PERFORMED BY: [facility] [address] [place] [address] PATHOLOGIST [employer] SOFIE MONTEIRO M.D.Performed By: #### CBC, CMP wRFX A1C #### [facility] [address] [place] [id number] USAAppearance of UrineOrdered By: Nishant Ceja on 02-06-2025 Appearance (U)ClearNormalClearTrihealth Good Samaritan HospitalComment on above: Order Comment: Name Collection Type:: Clean-Voided MidstreamPerformed By: #### CBC, CMP wRFX A1C #### [facility] [address] [place] [address] USAAspartate aminotransferase [Enzymatic activity/volume] in Serum or PlasmaOrdered By: Nishant Ceja on 42-26-7683PDS [Catalytic activity/Vol]39 U/XCddwbd00-42GjypqyzvgTrihealth Good Samaritan HospitalComment on above: Performed By: #### CBC, CMP wRFX A1C #### [facility] [address] [place], [place] [address] USABasophils [#/volume] in Blood by Automated countOrdered By: Nishant Ceja on 96-42-4107Svbwjpdjk (Bld) [#/Vol]0.1 10*3/uLNormal0.0-0.2 [facility] HospitalComment on above:Result Comment: PERFORMED BY: [facility] [address] [place] [address] PATHOLOGIST [employer] SOFIE MONTEIRO M.D.Performed By: #### CBC, CMP wRFX A1C #### [facility] [address] [place], [place] [address] USABasophils/100 leukocytes in Blood by Automated count Ordered By: Nishant Ceja on 49-47-1281Boaouzikb/100 WBC (Bld)0.9 %Normal. [facility]aritan HospitalComment on above:Performed By: #### CBC, CMP wRFX A1C #### [facility] [address] [place] [address] USABilirubin Test strip Ql (U)Ordered By: Nishant Ceja on 44-81-5043Uesyqafrv Ql (U)NegativeNegativeTrihealth Good Samaritan Hospital Bilirubin.total [Mass/volume] in Serum or PlasmaOrdered By: Nishant Ceja on 16-67-9797Tnnqiritq [Mass/Vol]0.6 mg/dLNormal0.3-1.0[facility] HospitalComment on above:Performed By: #### CBC, CMP wRFX A1C #### [place] [address] USACMP with reflex to A1Con 06-93-3297Fnmpklv [Mass/Vol]4.2 g/dLNormal3.5-5.7The [facility] Physician GroupComment on above:Performed By: #### CBC, CMP wRFX A1C #### [place] [address] USAGFR/1.73 sq M.predicted MDRD (S/P/Bld) [Vol rate/Area] mL/min/{1.73_m2}NormalThe [facility] Physician GroupComment on above:Performed By: #### CBC, CMP wRFX A1C #### [place] [address] USACalcium [Mass/volume] in Serum or PlasmaOrdered By: Nishant Ceja on 48-67-2075Qpdhwij [Mass/Vol]9.1 mg/dLNormal8.6-10.3FFulton County Health CenterComment on above:Performed By: #### CBC, CMP wRFX A1C #### [place] [id number] USACarbon dioxide, total [Moles/volume] in Serum or Plasma Ordered By: Nishant Ceja on 51-95-1640KM5 [Moles/Vol]23.4 mmol/IXzjlwr15.0-31.0 [facility] HospitalComment on above:Performed By: #### CBC, CMP wRFX A1C #### [facility] [address] [place] [address] USAChloride [Moles/volume] in Serum or PlasmaOrdered By: Nishant Ceja on 46-68-3460Pvrpdvbt [Moles/Vol]98 mmol/BYvqxhg14-393EbcnyiffbTrihealth Good Samaritan HospitalComment on above:Performed By: #### CBC, CMP wRFX A1C #### [facility] [address] [place] [address] USAColor of Urine by AutoOrdered By: Nishant Ceja on 44-64-0738Lpfsv (U)Light-yellowNormalYellowTrihealth Good Samaritan Hospital Comment on above:Order Comment: Name Collection Type:: Clean-Voided Midstream Performed By: #### CBC, CMP wRFX A1C #### [place] [address] USAComplete Blood Count Auto Diffon 68-35-4000Ppon Corpuscular HGB Conc33.9 g/kVTxfoub41.5-35.6[facility] Physician GroupComment on above:Performed By: #### CBC, CMP wRFX A1C #### [place] [address] USANRBC%0.1 /100{WBC}Normal0-0.5[facility]ician [facility] Comment on above:Performed By: #### CBC, CMP wRFX A1C #### [place] [address] USAWhite Blood Count5.4 [CFU]/mLNormal4.1-10.5[facility] Physician GroupComment on above:Performed By: #### CBC, CMP wRFX A1C #### [facility] [address] [place] [address] USACreatinine [Mass/volume] in Serum or PlasmaOrdered By: Nishant Ceja on 90-83-9355Azrjymkoty [Mass/Vol]0.78 mg/dLNormal0.70-1.30 [facility] HospitalComment on above:Performed By: #### CBC, CMP wRFX A1C #### [facility] [address] [place] [address] USAECG 12 lead ECGon 18-81-5106XAJ 12 lead [facility] [place] [address] [place], [place] [address] Electrocardiograph Report Signed Patient: Rehan Trejo MR#: [id number] : 1965 Acct:[id number] Age/Sex: 60 / M ADM Date: 02/06/25 Loc: Room: Type: [facility] Attending Dr: Nishant Ceja DO Ordering [...] Signed By Deep Amado MD 0 02/06/[address] [place] [address] Physician GroupEosinophils [#/volume] in Blood by Automated countOrdered By: Nishant Ceja on 77-89-0073Jprlrkhqkoc (Bld) [#/Vol]0.1 10*3/uLNormal0.0-0.45[facility] HospitalComment on above:Performed By: #### CBC, CMP wRFX A1C #### [facility] [address] [place], [place] [address] USAEosinophils/100 leukocytes in Blood by Automated count Ordered By: Nishant Ceja on 94-95-2366Larhhympmls/100 WBC (Bld)2.4 %Normal. [facility]aritan HospitalComment on above:Performed By: #### CBC, CMP wRFX A1C #### [facility] [address] [place] [address] USAErythrocyte distribution width [Ratio] by Automated count Ordered By: Nishant Ceja on 92-39-3496Kgbnsjqmgpi distribution width (RBC) [Ratio]13.9 %Vpoict56.0-14.8[facility] HospitalComment on above: Performed By: #### CBC, CMP wRFX A1C #### [place] [address] USAErythrocytes [#/volume] in Blood by Automated countOrdered By: Nishant Ceja on 11-48-5028AKW (Bld) [#/Vol]4.08 10*6/uLNormal3.90-5.60 [facility] HospitalComment on above:Performed By: #### CBC, CMP wRFX A1C #### [place] [address] USAGlucose [Mass/volume] in Serum or PlasmaOrdered By: Nishant Ceja on 47-89-2117Qnefdwt [Mass/Vol]82 mg/yDLjmmiz23-905AfzbfaihoTrihealth Good Samaritan HospitalComment on above:Performed By: #### CBC, CMP wRFX A1C #### [facility] [address] [place] [address] USAGlucose [Mass/volume] in Urine by Test stripOrdered By: Nishant Ceja on 43-05-9347Wtdsckg Test strip (U) [Mass/Vol]Normal mg/dLNormal [facility]itan HospitalHematocrit [Volume Fraction] of Blood by Automated countOrdered By: Nishant Ceja on 20-72-3174Mdaarxzgkx (Bld) [Volume fraction]40.9 %Prqrcp35.8-50.0[facility] HospitalComment on above: Performed By: #### CBC, CMP wRFX A1C #### [place] [id number] USAHemoglobin Test strip Ql (U)Ordered By: Nishant Ceja on [id number] Ql (U)NegativeNegativeTrihealth Good Samaritan Hospital Hemoglobin [Mass/volume] in BloodOrdered By: Nishant Ceja on 02-06-2025 Hemoglobin (Bld) [Mass/Vol]13.8 g/hUEhlwmc93.0-17.0[facility] HospitalComment on above:Performed By: #### CBC, CMP wRFX A1C #### [facility] [address] [place] [address] USAKetones [Presence] in Urine by Test stripOrdered By: Nishant Ceja on 77-40-6397Pivsdxi Ql (U)2+NormalNegUC West Chester HospitalComment on above:Order Comment: Name Collection Type:: Clean- Voided MidstreamPerformed By: #### CBC, CMP wRFX A1C #### [facility] [address] [place] [address] USALeukocyte esterase [Presence] in Urine by Test strip Ordered By: Nishant Ceja on 39-02-3044Bufajrcdl esterase Test strip Ql (U) NegativeNormalNegUC West Chester HospitalComment on above:Order Comment: Name Collection Type:: Clean-Voided MidstreamPerformed By: #### CBC, CMP wRFX A1C #### [facility] [address] [place] [id number] USALeukocytes [#/volume] corrected for nucleated erythrocytes in Blood by Automated counOrdered By: Nishant Ceja on 59-86-9316ZDX corrected for nucl RBC Auto (Bld) [#/Vol]5.4 10*3/uL4.1-10.5FFulton County Health CenterLeukocytes [#/volume] in Blood by Automated countOrdered By: Nishant Ceja on 83-63-5750MKO (Bld) [#/Vol]5.4 10*3/uLNormal4.1-10.5FFulton County Health CenterComment on above:Performed By: #### CBC, CMP wRFX A1C #### [facility] [address] [place] [id number] USALymphocytes [#/volume] in Blood by Automated countOrdered By: Nishant Ceja on 72-11-1923Zazbwviffuv (Bld) [#/Vol]1.8 10*3/uLNormal 1.00-4.8[facility] Samaritan HospitalComment on above:Performed By: #### CBC, CMP wRFX A1C #### [facility] [address] [place] [id number] USALymphocytes/100 leukocytes in Blood by Automated count Ordered By: Nishant eCja on 17-08-2051Usmvgfitfoi/100 WBC (Bld)33.6 %Normal. [facility]aritan HospitalComment on above:Performed By: #### CBC, CMP wRFX A1C #### [facility] [address] [place] [id number] [facility] CITYH [Entitic mass] by Automated countOrdered By: Nishant Ceja on 71-41-1194XKT (RBC) [Entitic mass]33.9 exFqugyh86.5-35.2FFulton County Health CenterComment on above:Performed By: #### CBC, CMP wRFX A1C #### [facility] [address] [place], [place] [id number] [facility] CITYHC Auto (RBC) [Mass/Vol]Ordered By: Nishant Ceja on 45-58-5723ZLRW (RBC) [Mass/Vol]33.9 g/dL32.5-35.6FFulton County Health CenterMCV [Entitic volume] by Automated countOrdered By: Nishant Ceja on 16-78-3524OAC (RBC) [Entitic vol]100.2 bCXlqixa00.5-101Tri[facility] Samaritan HospitalComment on above:Performed By: #### CBC, CMP wRFX A1C #### [facility] [address] [place], [place] [address] USAMonocytes [#/volume] in Blood by Automated countOrdered By: Nishant Ceja on 09-32-7998Iqijdqlsw (Bld) [#/Vol]0.5 10*3/uLNormal0.0-0.8 [facility]itan HospitalComment on above:Performed By: #### CBC, CMP wRFX A1C #### [facility] [address] [place], [place] [address] USAMonocytes/100 leukocytes in Blood by Automated count Ordered By: Nishant Ceja on 77-92-0382Dqwjgunwb/100 WBC (Bld)10.1 %Normal. [facility]aritan HospitalComment on above:Performed By: #### CBC, CMP wRFX A1C #### [facility] [address] [place] [address] USANeutrophils [#/volume] in Blood by Automated countOrdered By: Nishant Ceja on 72-32-8873Nnyobipakaz (Bld) [#/Vol]2.8 10*3/uLNormal1.8-7.7 [facility] HospitalComment on above:Performed By: #### CBC, CMP wRFX A1C #### [facility] [address] [place] [address] USANeutrophils/100 leukocytes in Blood by Automated count Ordered By: Nishant Ceja on 74-95-0868Jfshbotzuui/100 WBC (Bld)53.0 %Normal. [facility]aritan HospitalComment on above:Performed By: #### CBC, CMP wRFX A1C #### [facility] [address] [place] [address] USANitrite Test strip Ql (U)Ordered By: Nishant Ceja on 81-84-2678Qbpewkv Ql (U)NegativeNegativeTrihealth Good Samaritan HospitalNo Panel InformationOrdered By: Nishant Ceja on 00-56-4634Fsqtydkoj GFR (CKD-EPI)> 60.0 mL/MinTrihealth Good Samaritan HospitalPharmacy Creatinine Clearance (Chem N/AFFulton County Health CenterNucleated erythrocytes [Presence] in Blood by Automated countOrdered By: Nsihant Ceja on 02-14-4184Nbelxuiob RBC Auto Ql (Bld)0.1 /100{WBC}0-0.5FFulton County Health CenterPlatelet mean volume [Entitic volume] in Blood by Automated countOrdered By: Nishant Ceja on 04-92-0416Neevtrqv mean volume (Bld) [Entitic vol]7.9 fLNormal6.6-10.1FFulton County Health CenterComment on above:Performed By: #### CBC, CMP wRFX A1C #### [facility] [address] [place] [address] USAPlatelets [#/volume] in Blood by Automated countOrdered By: Nishant Ceja on 70-86-9061Tofjrkbjv (Bld) [#/Vol]225 10*3/nPHrkmdc315-649 [facility] HospitalComment on above:Performed By: #### CBC, CMP wRFX A1C #### [facility] [address] [place] [address] USAPotassium [Moles/volume] in Serum or PlasmaOrdered By: Nishant Ceja on 30-57-1606Cxoumkmcq [Moles/Vol]4.1 mmol/LNormal3.5-5.1FFulton County Health CenterComment on above:Performed By: #### CBC, CMP wRFX A1C #### [place] [address] USAProtein Test strip (U) [Mass/Vol]Ordered By: Nishant Ceja on 90-44-4172Taogjeg (U) [Mass/Vol]NegativeNegativeTrihealth Good Samaritan HospitalProtein [Mass/volume] in Serum or PlasmaOrdered By: Nishant Ceja on 48-30-0990Pwvfnwq [Mass/Vol]6.9 g/dLNormal6.4-8.9[facility] HospitalComment on above:Performed By: #### CBC, CMP wRFX A1C #### [place] [address] USASerum globulin measurement by calculation (mass/volume) Ordered By: Nishant Ceja on 79-74-4606Ihenibcj (S) [Mass/Vol]2.7 g/dLNormal [facility] HospitalComment on above:Performed By: #### CBC, CMP wRFX A1C #### [facility] [address] [place] [address] USASerum or plasma albumin/globulin mass ratioOrdered By: Nishant Ceja on 40-58-9866Tkxsxlb/Globulin [Mass ratio]1.6 {ratio}Normal [facility]itan HospitalComment on above:Performed By: #### CBC, CMP wRFX A1C #### [place] [address] USASerum or plasma anion gap determinationOrdered By: Nishant Ceja on 14-24-2585Glkdh gap [Moles/Vol]14.7 mmol/LNormal6.0-15.0[facility] HospitalComment on above:Performed By: #### CBC, CMP wRFX A1C #### [facility] [address] [place] [address] USASodium [Moles/volume] in Serum or PlasmaOrdered By: Nishant Ceja on 05-62-6571Oulzme [Moles/Vol]132 mmol/FQsg934-039JjetskqamTrihealth Good Samaritan HospitalComment on above:Performed By: #### CBC, CMP wRFX A1C #### [facility] [address] [place] [address] USASpecific gravity Test strip (U) [Rel density]Ordered By: Nishant Ceja on 42-37-9279Rldcdunm gravity (U) [Rel density]1.0141.001-1.030 [facility]itan HospitalUrea nitrogen [Mass/volume] in Serum or Plasma Ordered By: Nishant Ceja on 90-43-6965Dcdv nitrogen [Mass/Vol]7 mg/dLNormal02-06 [facility] HospitalComment on above:Performed By: #### CBC, CMP wRFX A1C #### [facility] [address] [place] [id number] USAUrinalysison 14-18-0801Czldpjexe,UrineNegativeNormal NegativeWinter Haven Hospital Physician GroupComment on above:Order Comment: Name Collection Type:: Clean-Voided MidstreamPerformed By: #### CBC, CMP wRFX A1C #### [facility] [address] [place] [id number] USAGlucose Ql (U)NormalNormalNormalThe [facility] Physician GroupComment on above:Order Comment: Name Collection Type:: Clean-Voided MidstreamPerformed By: #### CBC, CMP wRFX A1C #### [facility] [address] [place] [id number] USANitrite,UrineNegativeNormalNegativeThe [facility] Physician GroupComment on above:Order Comment: Name Collection Type:: Clean-Voided MidstreamPerformed By: #### CBC, CMP wRFX A1C #### [place] [address] USAOccult Blood,UrineNegativeNormalNegativeThe [facility] Hospital Physician GroupComment on above:Order Comment: Name Collection Type:: Clean- Voided MidstreamResult Comment: PERFORMED BY: [place] [address] PATHOLOGIST [employer] SOFIE MONTEIRO M.D.Performed By: #### CBC, CMP wRFX A1C #### [place] [address] USAProtein,UrineNegativeNormalNegativeThe [facility] Hospital Physician GroupComment on above:Order Comment: Name Collection Type:: Clean-Voided MidstreamPerformed By: #### CBC, CMP wRFX A1C #### [place] [address] USASpecificy [place],Urine1.035Jywhqa6.001-1.030The [facility] Physician GroupComment on above:Order Comment: Name Collection Type:: Clean- Voided MidstreamPerformed By: #### CBC, CMP wRFX A1C #### [place] [address] USAUrobilinogen,UrineNormalNormalNormalThe [facility] Hospital Physician GroupComment on above:Order Comment: Name Collection Type:: Clean- Voided MidstreamPerformed By: #### CBC, CMP wRFX A1C #### [place] [address] USAUrobilinogen Test strip (U) [Mass/Vol]Ordered By: Nishant Ceja on 61-76-3150Mzgobamdpnwe (U) [Mass/Vol]Normal mg/dLNormalTrihealth Good Samaritan HospitalpH of Urine by Test stripOrdered By: Nishant Ceja on 72-70-5297lZ (U)6.0 [pH]Normal5.0-9.0[facility] HospitalComment on above:Order Comment: Name Collection Type:: Clean-Voided MidstreamPerformed By: #### CBC, CMP wRFX A1C #### [facility] [address] [place] [id number] YUD80sp 80-76-555771Yrrnf to patient to see if he had completed his testing ordered by Dr. Vidal. Patient states he has not completed testing, Social Security Specialist asked patient if he would like to do testing, patient agreed to have testing done. I advised patient that scheduling would be calling him to sched testing and they will transfer him down to us to sched his follow up with Dr. Vidal. Patient verbalized understanding and agreed with plan of care.[facility] HospitalX-ray reportOrdered By: Nikos Rivera on 83-20-7037Uassn reportFIRKETTERING MEMORIAL [facility]ITAL [facility] [address] [place] [id number] XRay Report Signed Patient: Rehan Trejo MR#: [id number] : 1965 Acct:[id number] Age/Sex: 59 / M ADM Date: 5 Loc: [facility] [place] [place] Room: Type: [facility] Attending Dr: Nishant Ceja DO Copies [...] Rivera M.D. 12/22/2024 10:26 PM Dictation Location: [place] [address] Transcribed By: [facility] 12/22/242225 Dictated By: Nikos Rivera MD 12/22/242224 Signed By: 12/22/242225 [facility] Work Phone: XR shoulder RT min 2V*on 75-32-7637NL shoulder RT min 2V*[facility] [address] [place] [address] XRay Report Signed Patient: Rehan Trejo MR#: [id number] : 1965 Acct:[id number] Age/Sex: 59 / M ADM Date: 12/22/24 Loc: [facility] [place] [place] Room: Type: [facility] Attending Dr: Nishant Ceja DO Copies [...] Rivera M.D. 12/22/2024 10:26 PM Dictation Location: [place] [address] Transcribed By: [facility] 12/22/242225 Dictated By: Nikos Rivera MD 12/22/242224 Signed By: 12/22/242225[facility] Physician GroupUS venous duplex LE RTon 98-81-1297BD venous duplex LE [facility] [place] [address] [place] [address] Ultrasound Report Signed Patient: Rehan Trejo MR#: [id number] : 1965 Acct:[id number] Age/Sex: 59 / M ADM Date: 12/03/24 Loc: Room: 1L1735-7 Type: ADM IN Attending Dr: Paco Jimenez [...] Donnelly M.D. 12/12/2024 11:17 AM Dictation Location: [place] [address] Tech: Ana Rosa Esqueda Transcribed By: NORI 12/12/241116 Dictated By: Zaire Donnelly MD 12/12/241116 Signed By: 12/12/24 [facility] CenterC[facility]ables Hospital Physician GroupAlanine aminotransferase [Enzymatic activity/volume] in Serum or PlasmaOrdered By: Paco Jimenez on 95-41-5426CDA [Catalytic activity/Vol]Alanine aminotransferase [Enzymatic activity/volume] in Serum or Plasma7[facility]itan HospitalALT [Catalytic activity/Vol]37 U/LNormal7[facility] HospitalComment on above:Performed By: #### CBC, CMP wRFX A1C #### [facility] [address] [place] [address] USAAlbumin [Mass/volume] in Serum or Plasma by Bromocresol green (BCG) dye binding methoOrdered By: Paco Jimenez on 12-04-2024 Albumin BCG dye [Mass/Vol]Albumin [Mass/volume] in Serum or Plasma by Bromocresol green (BCG) dye binding methoLow3.5-5.7FFulton County Health CenterAlbumin BCG dye [Mass/Vol]3.2 g/dLLow3.5-5.7FFulton County Health CenterAlkaline phosphatase [Enzymatic activity/volume] in Serum or PlasmaOrdered By: Paco Jimenez on 42-36-9749ERJ [Catalytic activity/Vol]Alkaline phosphatase [Enzymatic activity/volume] in Serum or Nlthav64-686IaswfvasvTrihealth Good Samaritan HospitalALP [Catalytic activity/Vol]92 U/ZEkmhfy72-467Zoptvlboh81 Mccarthy StreetComment on above:Performed By: #### CBC, CMP wRFX A1C #### [place] [address] USAAspartate aminotransferase [Enzymatic activity/volume] in Serum or PlasmaOrdered By: Paco Jimenez on 02-32-5159CKO [Catalytic activity/Vol]Aspartate aminotransferase [Enzymatic activity/volume] in Serum or Kxjdtr09-54Lpjgxmzwr[address] [place], [place] [address]AST [Catalytic activity/Vol]21 U/L Iejuls87-29Qdykfbmkv[address] [place], [place] [address]Comment on above:Performed By: #### CBC, CMP wRFX A1C #### [facility] [address] [place] [address] USABasophils Auto (Bld) [#/Vol]Ordered By: Paco Jimenez on 61-69-9958Rrxdftedn (Bld) [#/Vol]Automated basophil count0.0-0.2 [facility]itan HospitalBasophils [#/volume] in Blood by Automated countOrdered By: Paco Jimenez on 20-73-3876Bxaogzxkf (Bld) [#/Vol]0.0 10*3/uLNormal0.0-0.2FFulton County Health CenterComment on above:Result Comment: PERFORMED BY: [place] [address] PATHOLOGIST [employer] CHACORTA DE DIOS M.D.Performed By: #### CBC, CMP wRFX A1C #### [place] [address] USABasophils/100 WBC Auto (Bld)Ordered By: Paco Jimenez on 81-37-7266Arumrbqia/100 WBC (Bld)Automated basophil %.[facility]itan HospitalBasophils/100 leukocytes in Blood by Automated count Ordered By: Paco Jimenez on 00-44-9160Scwuwfvsx/100 WBC (Bld)0.3 %Normal .[facility]aritan HospitalComment on above:Performed By: #### CBC, CMP wRFX A1C #### [place] [address] USABilirubin.total [Mass/volume] in Serum or PlasmaOrdered By: Paco Jimenez on 52-48-2172Irbdhmjpr [Mass/Vol]Bilirubin.total [Mass/volume] in Serum or Plasma0.3-1.0[facility] Bilirubin [Mass/Vol]0.7 mg/dLNormal0.3-1.0[facility] Comment on above:Performed By: #### CBC, CMP wRFX A1C #### [facility] [address] [place] [id number] USACalcium [Mass/volume] in Serum or PlasmaOrdered By: Paco Jimenez on 69-53-3054Lcmwpvh [Mass/Vol]Calcium [Mass/volume] in Serum or PlasmaLow8.6-10.3FFulton County Health CenterCalcium [Mass/Vol]7.8 mg/dLLow8.6-10.3FFulton County Health CenterComment on above:Performed By: #### CBC, CMP wRFX A1C #### [facility] [address] [place] [id number] USACarbon dioxide, total [Moles/volume] in Serum or Plasma Ordered By: Paco Jimenez on 67-12-1260TE6 [Moles/Vol]Carbon dioxide, total [Moles/volume] in Serum or Cwjngy84.0-31.0[facility]itan HospitalCO2 [Moles/Vol]21.8 mmol/XNsfkjx34.0-31.0[facility] Comment on above:Performed By: #### CBC, CMP wRFX A1C #### [facility] [address] [place] [id number] USAChloride [Moles/volume] in Serum or PlasmaOrdered By: Paco Jimenez on 98-23-9366Dmdabrkq [Moles/Vol]Chloride [Moles/volume] in Serum or Yqkuuw09-799NbkuuaneqTrihealth Good Samaritan HospitalChloride [Moles/Vol]100 mmol/VFzquqw50-514Alss[address] [place], [place] [address]Comment on above:Performed By: #### CBC, CMP wRFX A1C #### [facility] [address] [place] [address] USAComplete Blood Count Auto Diffon 27-88-9520Vegt Corpuscular HGB Conc34.6 g/gITwqdqf14.5-35.6[facility] Physician GroupComment on above:Performed By: #### CBC, CMP wRFX A1C #### [facility] [address] [place] [address] USANRBC%0.1 /100{WBC}Normal0-0.5[facility] Comment on above:Performed By: #### CBC, CMP wRFX A1C #### [facility] [address] [place] [address] USAComprehensive Metabolic Panelon 75-88-8835Erxebsn [Mass/Vol]3.2 g/dLLow3.5-5.7[facility] Physician [facility] Hospital Of MeridianComment on above: Performed By: #### CBC, CMP wRFX A1C #### [facility] [address] [place] [address] USACreatinine Clr Calc Cqzjpqju065.15NormalThe [facility] Community Hospital Physician GroupComment on above:Performed By: #### CBC, CMP wRFX A1C #### [facility] [address] [place] [address] USAGFR/1.73 sq M.predicted MDRD (S/P/Bld) [Vol rate/Area] mL/min/{1.73_m2}NormalThe [facility] Physician [facility] Of MeridianComment on above:Performed By: #### CBC, CMP wRFX A1C #### [place] [address] USACreatinine [Mass/volume] in Serum or PlasmaOrdered By: Paco Jimenez on 83-43-5780Oaxczwlgqq [Mass/Vol]Creatinine [Mass/volume] in Serum or Plasma0.70-1.30[facility] HospitalCreatinine [Mass/Vol]0.93 mg/dLNormal0.70-1.30[facility] HospitalComment on above:Performed By: #### CBC, CMP wRFX A1C #### [facility] [address] [place] [address] USAEosinophils Auto (Bld) [#/Vol]Ordered By: Paco Jimenez on 42-64-8320Oetsadsmljg (Bld) [#/Vol]Automated eosinophil count 0.0-0.45[facility] HospitalEosinophils [#/volume] in Blood by Automated countOrdered By: Paco Jimenez on 43-56-0946Hfqqyhnmrtl (Bld) [#/Vol]0.0 10*3/uLNormal0.0-0.45[facility] HospitalComment on above:Performed By: #### CBC, CMP wRFX A1C #### [facility] [address] [place] [address] USAEosinophils/100 WBC Auto (Bld)Ordered By: Paco Jimenez on 77-93-7848Arueimiusrd/100 WBC (Bld)Automated eosinophil %. [facility] HospitalEosinophils/100 leukocytes in Blood by Automated countOrdered By: Paco Jimenez on 89-59-0678Xiistedygcj/100 WBC (Bld)0.3 %Normal.[facility]itan HospitalComment on above:Performed By: #### CBC, CMP wRFX A1C #### [facility] [address] [place] [id number] USAErythrocyte distribution width Auto (RBC) [Ratio]Ordered By: Paco Jimenez on 16-11-3779Lnxwnqynaey distribution width (RBC) [Ratio]Erythrocyte distribution width [Ratio] by Automated count12.0-14.8 [facility]itan HospitalErythrocyte distribution width [Ratio] by Automated countOrdered By: Paco Jimenez on 45-37-3360Htwddjjzvet distribution width (RBC) [Ratio]13.7 %Xggccn19.0-14.8[facility] HospitalComment on above:Performed By: #### CBC, CMP wRFX A1C #### [facility] [address] [place] [phone] USAErythrocytes [#/volume] in Blood by Automated countOrdered By: Paco Jimenez on 46-79-5814XKM (Bld) [#/Vol]3.31 10*6/uLLow3.90-5.60 [facility] HospitalComment on above:Performed By: #### CBC, CMP wRFX A1C #### [facility] [address] [place] [address] USAGlobulin Calc (S) [Mass/Vol]Ordered By: Paco Jimenez on 99-70-3862Agdovdey (S) [Mass/Vol]Serum globulin measurement by calculation (mass/volume)[facility] HospitalGlucose [Mass/volume] in Serum or PlasmaOrdered By: Paco Jimenez on 00-94-9975Dnhomct [Mass/Vol]Glucose [Mass/volume] in Serum or Jrhxwl13-745LowputzjhTrihealth Good Samaritan HospitalComment on above:ADA recommended reference rangeRandom Glucose Reference Range is dependent on time and content of last meal. Glucose of more than 200 mg/dL in a nonstressed, ambulatory subject supports the diagnosisof Diabetes Mellitus.Glucose [Mass/Vol]95 mg/nIGyenpq92-814IrztwpiruTrihealth Good Samaritan HospitalComment on above:ADA recommended reference rangeRandom Glucose [...] By: #### CBC, CMP wRFX A1C #### [facility] [address] [place] [address] USAHematocrit Auto (Bld) [Volume fraction]Ordered By: Paco Jimenez on 12-06-7269Nlwbcsgmkc (Bld) [Volume fraction]Hematocrit [Volume Fraction] of Blood by Automated zergkYss83.8-50.0[facility]itan HospitalHematocrit [Volume Fraction] of Blood by Automated countOrdered By: Paco Jimenez on 07-07-8226Kqfpnxnjbn (Bld) [Volume fraction]32.8 % Low38.8-50.0[facility] HospitalComment on above:Performed By: #### CBC, CMP wRFX A1C #### [facility] [address] [place] [address] USAHemoglobin [Mass/volume] in BloodOrdered By: Paco Jimenez on 63-52-5396Rjqwmqklfs (Bld) [Mass/Vol]Hemoglobin [Mass/volume] in NotzpNux74.0-17.0[facility]itan HospitalHemoglobin (Bld) [Mass/Vol] 11.3 g/dLLow13.0-17.0[facility] HospitalComment on above:Performed By: #### CBC, CMP wRFX A1C #### [facility] [address] [place] [id number] USALeukocytes [#/volume] corrected for nucleated erythrocytes in Blood by Automated counOrdered By: Paco Jimenez on 45-83-2836XFV corrected for nucl RBC Auto (Bld) [#/Vol]Leukocytes [#/volume] corrected for nucleated erythrocytes in Blood by Automated coun4.1-10.5FFulton County Health CenterWBC corrected for nucl RBC Auto (Bld) [#/Vol]9.1 10*3/uL4.1-10.5 [facility] HospitalLeukocytes [#/volume] in Blood by Automated countOrdered By: Paco Jimenez on 91-64-5858PLC (Bld) [#/Vol]9.1 10*3/uL Normal4.1-10.5FFulton County Health CenterComment on above:Performed By: #### CBC, CMP wRFX A1C #### [facility] [address] [place] [id number] USALymphocytes Auto (Bld) [#/Vol]Ordered By: Paco Jimenez on 20-40-0423Lkhkutqewco (Bld) [#/Vol]Lymphocytes [#/volume] in Blood by Automated count1.00-4.8[facility]itan HospitalLymphocytes [#/volume] in Blood by Automated countOrdered By: Paco Jimenez on 64-69-3069Pslgdxzqgqj (Bld) [#/Vol]1.9 10*3/uLNormal1.00-4.8[facility] HospitalComment on above:Performed By: #### CBC, CMP wRFX A1C #### [facility] [address] [place] [address] USALymphocytes/100 WBC Auto (Bld)Ordered By: Paco Jimenez on 59-51-1093Mgsflytjsaf/100 WBC (Bld)Lymphocytes/100 leukocytes in Blood by Automated count.[facility] Samaritan HospitalLymphocytes/100 leukocytes in Blood by Automated countOrdered By: Paco Jimenez on 35-81-8284Xkrwcrjlvbw/100 WBC (Bld)20.4 %Normal.[facility]itan HospitalComment on above:Performed By: #### CBC, CMP wRFX A1C #### [facility] [address] [place] [id number] [facility] Auto (RBC) [Entitic mass]Ordered By: Paco Jimenez on 74-98-9612DMG (RBC) [Entitic mass]MCH [Entitic mass] by Automated count27.5-35.2FSelect Medical Specialty Hospital - Trumbull [Entitic mass] by Automated countOrdered By: Paco Jimenez on 07-95-2054LPJ (RBC) [Entitic mass]34.3 yhLleega01.5-35.2FFulton County Health CenterComment on above:Performed By: #### CBC, CMP wRFX A1C #### [facility] [address] [place] [id number] [facility] Auto (RBC) [Mass/Vol]Ordered By: Paco Jimenez on 87-83-1687EAKU (RBC) [Mass/Vol]MCHC [Mass/volume] by Automated count 32.5-35.6FUniversity Hospitals Geauga Medical CenterHC (RBC) [Mass/Vol]34.6 g/dL 32.5-35.6FUniversity Hospitals Geauga Medical CenterV Auto (RBC) [Entitic vol]Ordered By: Paco Jimenez on 59-71-5294OAA (RBC) [Entitic vol]MCV [Entitic volume] by Automated count83.5-101[facility] HospitalV [Entitic volume] by Automated countOrdered By: Paco Jimenez on 93-51-4244UUK (RBC) [Entitic vol]99.2 uQYxqezg98.5-101[facility] HospitalComment on above:Performed By: #### CBC, CMP wRFX A1C #### [facility] [address] [place] [address] USAMonocytes Auto (Bld) [#/Vol]Ordered By: Paco Jimenez on 41-53-8714Lfyvpydym (Bld) [#/Vol]Automated blood monocyte count High0.0-0.8[facility]itan HospitalMonocytes [#/volume] in Blood by Automated countOrdered By: Paco Jimenez on 96-68-0967Lvohgqtyk (Bld) [#/Vol]1.1 10*3/uLHigh0.0-0.8[facility] HospitalComment on above: Performed By: #### CBC, CMP wRFX A1C #### [facility] [address] [place] [address] USAMonocytes/100 WBC Auto (Bld)Ordered By: Paco Jimenez on 74-87-7462Kmrqbrcvz/100 WBC (Bld)Automated monocyte %.[facility]itan HospitalMonocytes/100 leukocytes in Blood by Automated count Ordered By: Paco Jimenez on 68-55-6812Nslwqnpgz/100 WBC (Bld)11.8 % Normal.[facility]aritan HospitalComment on above:Performed By: #### CBC, CMP wRFX A1C #### [place] [address] USANeutrophils Auto (Bld) [#/Vol]Ordered By: Paco Jimenez on 40-33-1327Uryredxgtbq (Bld) [#/Vol]Neutrophils [#/volume] in Blood by Automated count1.8-7.7FFulton County Health CenterNeutrophils [#/volume] in Blood by Automated countOrdered By: Paco Jimenez on 15-18-7921Upjmszmtaoh (Bld) [#/Vol]6.1 10*3/uLNormal1.8-7.7FFulton County Health CenterComment on above:Performed By: #### CBC, CMP wRFX A1C #### [facility] [address] [place] [address] USANeutrophils/100 WBC Auto (Bld)Ordered By: Paco Jimenez on 51-43-0346Omrwevyyips/100 WBC (Bld)Automated neutrophil %. [facility] HospitalNeutrophils/100 leukocytes in Blood by Automated countOrdered By: Paco Jimenez on 00-38-6186Idrwuhvurkf/100 WBC (Bld)67.2 %Normal.[facility]aritan HospitalComment on above:Performed By: #### CBC, CMP wRFX A1C #### [facility] [address] [place] [address] USANo Panel InformationOrdered By: Paco Jimenez on 52-17-0896Npgclihgr GFR (CKD-EPI)> 60.0 mL/MinTrihealth Good Samaritan Hospital [facility]acy Creatinine Clearance (Uxfc175.15[facility] Nucleated erythrocytes [Presence] in Blood by Automated countOrdered By: Paco Jimenez on 05-78-6099Wwxskucxc RBC Auto Ql (Bld)Nucleated erythrocytes [Presence] in Blood by Automated count0-0.5FFulton County Health CenterNucleated RBC Auto Ql (Bld)0.1 /100{WBC}0-0.5FFulton County Health CenterPlatelet mean volume Auto (Bld) [Entitic vol]Ordered By: Paco Jimenez on 59-21-6127Itrqpfrb mean volume (Bld) [Entitic vol]Platelet mean volume [Entitic volume] in Blood by Automated count6.6-10.1FFulton County Health CenterPlatelet mean volume [Entitic volume] in Blood by Automated count Ordered By: Paco Jimenez on 05-04-6438Xrcwwsnh mean volume (Bld) [Entitic vol]7.7 fLNormal6.6-10.1FFulton County Health CenterComment on above:Performed By: #### CBC, CMP wRFX A1C #### [facility] [address] [place] [address] USAPlatelets Auto (Bld) [#/Vol]Ordered By: Paco Jimenez on 29-79-4422Vbxeicgyj (Bld) [#/Vol]Platelets [#/volume] in Blood by Automated -855RqeoizoolTrihealth Good Samaritan HospitalPlatelets [#/volume] in Blood by Automated countOrdered By: Paco Jimenez on 30-96-2870Wkzbbvbla (Bld) [#/Vol]179 10*3/fZHwieju718-813XrbbejcxvTrihealth Good Samaritan HospitalComment on above:Performed By: #### CBC, CMP wRFX A1C #### [facility] [address] [place] [address] USAPotassium [Moles/volume] in Serum or PlasmaOrdered By: Paco Jimenez on 89-21-4087Ejavtlgff [Moles/Vol]Potassium [Moles/volume] in Serum or Plasma3.5-5.1FFulton County Health CenterPotassium [Moles/Vol] 3.8 mmol/LNormal3.5-5.1FFulton County Health CenterComment on above: Performed By: #### CBC, CMP wRFX A1C #### [facility] [address] [place] [address] USAPrealbumin [Mass/volume] in Serum or PlasmaOrdered By: Paco Jimenez on 34-28-9017Fauyllindf [Mass/Vol]Prealbumin [Mass/volume] in Serum or NzerzlIql19.0-34.0[facility]aritan HospitalPrealbumin [Mass/Vol]13.4 mg/dLLow17.0-34.0[facility] HospitalComment on above:Result Comment: PERFORMED BY: [place] [id number] PATHOLOGIST [employer] CHACORTA DE DIOS M.D.Performed By: #### CBC, CMP wRFX A1C #### [address] [address] USAProtein [Mass/volume] in Serum or PlasmaOrdered By: Paco Jimenez on 40-44-1007Uemlqbv [Mass/Vol]Protein [Mass/volume] in Serum or PlasmaLow6.4-8.9[facility] HospitalProtein [Mass/Vol]5.1 g/dLLow6.4-8.9[facility]itan HospitalComment on above:Performed By: #### CBC, CMP wRFX A1C #### [facility] [address] [place] [address] USARBC Auto (Bld) [#/Vol]Ordered By: Paco Jimenez on 65-68-7147UKY (Bld) [#/Vol]Erythrocytes [#/volume] in Blood by Automated count Low3.90-5.60Wood County Hospitalerum globulin measurement by calculation (mass/volume)Ordered By: Paco Jimenez on 06-85-3211Hbjguwcr (S) [Mass/Vol]1.9 g/dLNormalTrihealth Good Samaritan HospitalComment on above: Performed By: #### CBC, CMP wRFX A1C #### [facility] [address] [place] [address] USASerum or plasma albumin/globulin mass ratioOrdered By: Paco Jimenez on 11-16-2342Kewvlxh/Globulin [Mass ratio]Serum or plasma albumin/globulin mass ratioTrihealth Good Samaritan HospitalAlbumin/Globulin [Mass ratio]1.7 {ratio}NormalTrihealth Good Samaritan HospitalComment on above: Performed By: #### CBC, CMP wRFX A1C #### [facility] [address] [place] [address] USASerum or plasma anion gap determinationOrdered By: Paco Jimenez on 39-65-6917Zreix gap [Moles/Vol]Serum or plasma anion gap determination6.0-15.0[facility] HospitalAnion gap [Moles/Vol]13.0 mmol/LNormal6.0-15.0[facility] HospitalComment on above:Performed By: #### CBC, CMP wRFX A1C #### [facility] [address] [place] [address] USASodium [Moles/volume] in Serum or PlasmaOrdered By: Paco Jimenez on 97-83-8279Fxujmp [Moles/Vol]Sodium [Moles/volume] in Serum or QcjqsvLir999-600CnwqabeymWood County Hospitalodium [Moles/Vol]131 mmol/POfy366-144MaqfsnbqbTrihealth Good Samaritan HospitalComment on above:Performed By: #### CBC, CMP wRFX A1C #### [facility] [address] [place] [id number] USAUrea nitrogen [Mass/volume] in Serum or PlasmaOrdered By: Paco Jimenez on 78-18-3739Boar nitrogen [Mass/Vol]Urea nitrogen [Mass/volume] in Serum or Plasma02-06[facility]aritan HospitalUrea nitrogen [Mass/Vol]13 mg/dLNormal02-06[facility] HospitalComment on above:Performed By: #### CBC, CMP wRFX A1C #### [facility] [address] [place] [address] USAWBC Auto (Bld) [#/Vol]Ordered By: Paco Jimenez on 58-04-5505VPP (Bld) [#/Vol]Leukocytes [#/volume] in Blood by Automated count 4.1-10.5FFulton County Health CenterBasic Metabolic Panelon 12-03-2024 Creatinine Clr Calc Mzwoyipm308.38NormAdventHealth Central Pasco ER Physician GroupComment on above:Result Comment: PERFORMED BY: [place] [address] PATHOLOGIST [employer] CHACORT[employer] DE DIOS M.D.Performed By: #### CBC, CMP wRFX A1C #### [facility] [address] [place] [id number] USAGFR/1.73 sq M.predicted MDRD (S/P/Bld) [Vol rate/Area] mL/min/{1.73_m2}NormalThe [facility] Hospital Physician GroupComment on above:Performed By: #### CBC, CMP wRFX A1C #### [facility] [address] [place] [id number] USABasophils Auto (Bld) [#/Vol]Ordered By: Nishant Ceja on 10-22-0149Jxzgxwqzb (Bld) [#/Vol]Automated basophil count0.0-0.2FFulton County Health CenterBasophils [#/volume] in Blood by Automated countOrdered By: Nishant Ceja on 02-51-6179Nzpjtucbt (Bld) [#/Vol]0.1 10*3/uLNormal0.0-0.2 [facility] HospitalComment on above:Result Comment: PERFORMED BY: [facility] [address] [place] [address] PATHOLOGIST [employer] CHACORTA DE DIOS M.D.Performed By: #### CBC, CMP wRFX A1C #### [facility] [address] [place] [address] USABasophils/100 WBC Auto (Bld)Ordered By: Nishant Ceja on 60-93-1291Xybjstzvx/100 WBC (Bld)Automated basophil %.[facility]itan HospitalBasophils/100 leukocytes in Blood by Automated countOrdered By: Nishant Ceja on 84-89-2880Almxqzdyd/100 WBC (Bld)0.7 %Normal.[facility]aritan HospitalComment on above:Performed By: #### CBC, CMP wRFX A1C #### [facility] [address] [place] [address] USACalcium [Mass/volume] in Serum or PlasmaOrdered By: Nishant Ceja on 35-43-6995Pxcwdgh [Mass/Vol]Calcium [Mass/volume] in Serum or Plasma Low8.6-10.3FFulton County Health CenterCalcium [Mass/Vol]8.4 mg/dLLow 8.6-10.3FFulton County Health CenterComment on above:Performed By: #### CBC, CMP wRFX A1C #### [facility] [address] [place] [address] USACarbon dioxide, total [Moles/volume] in Serum or Plasma Ordered By: Nishant Ceja on 72-59-4416VF9 [Moles/Vol]Carbon dioxide, total [Moles/volume] in Serum or WwecjxBxa14.0-31.0[facility] CO2 [Moles/Vol]20.5 mmol/LLow21.0-31.0[facility] HospitalComment on above:Performed By: #### CBC, CMP wRFX A1C #### [facility] [address] [place] [address] USAChloride [Moles/volume] in Serum or PlasmaOrdered By: Nishant Ceja on 02-20-2485Hgcfvqrv [Moles/Vol]Chloride [Moles/volume] in Serum or Skbzbq30-977TxryfwaprTrihealth Good Samaritan HospitalChloride [Moles/Vol]99 mmol/L Oflvcz88-795YpdrkuctcTrihealth Good Samaritan HospitalComment on above:Performed By: #### CBC, CMP wRFX A1C #### [facility] [address] [place] [address] USAComplete Blood Count Auto Diffon 02-46-1105Evyk Corpuscular HGB Conc34.0 g/mATrrkgc68.5-35.6The [facility] Physician GroupComment on above:Performed By: #### CBC, CMP wRFX A1C #### [facility] [address] [place] [address] USANRBC%0.1 /100{WBC}Normal0-0.5The [facility] Comment on above:Performed By: #### CBC, CMP wRFX A1C #### [facility] [address] [place] [address] USACreatinine [Mass/volume] in Serum or PlasmaOrdered By: Nishant Ceja on 93-89-2029Kiefmlbket [Mass/Vol]Creatinine [Mass/volume] in Serum or Plasma0.70-1.30[facility] HospitalCreatinine [Mass/Vol] 0.82 mg/dLNormal0.70-1.30[facility] HospitalComment on above: Performed By: #### CBC, CMP wRFX A1C #### [facility] [address] [place] [address] USAEosinophils Auto (Bld) [#/Vol]Ordered By: Nishant Ceja on 59-95-1698Rdmmeqtdjzh (Bld) [#/Vol]Automated eosinophil count0.0-0.45[facility]itan HospitalEosinophils [#/volume] in Blood by Automated countOrdered By: Nishant Ceja on 46-35-0031Ilslrujjfih (Bld) [#/Vol]0.0 10*3/uLNormal 0.0-0.45[facility] HospitalComment on above:Performed By: #### CBC, CMP wRFX A1C #### [facility] [address] [place] [address] USAEosinophils/100 WBC Auto (Bld)Ordered By: Nishant Ceja on 42-75-7127Nbxpjjjxjzz/100 WBC (Bld)Automated eosinophil %.[facility]itan HospitalEosinophils/100 leukocytes in Blood by Automated countOrdered By: Nishant Ceja on 75-66-7214Fjymjpyngwh/100 WBC (Bld)0.0 %Normal.[facility]aritan HospitalComment on above:Performed By: #### CBC, CMP wRFX A1C #### [place] [address] USAErythrocyte distribution width Auto (RBC) [Ratio]Ordered By: Nishant Ceja on 45-40-8009Vifrzdtmgng distribution width (RBC) [Ratio] Erythrocyte distribution width [Ratio] by Automated count12.0-14.8[facility]aritan HospitalErythrocyte distribution width [Ratio] by Automated count Ordered By: Nishant Ceja on 71-17-4391Xkqmunlqaaq distribution width (RBC) [Ratio]14.1 %Ffyjyh26.0-14.8[facility]aritan HospitalComment on above: Performed By: #### CBC, CMP wRFX A1C #### [facility] [address] [place] [id number] USAErythrocytes [#/volume] in Blood by Automated countOrdered By: Nishant Ceja on 92-02-2287DEO (Bld) [#/Vol]3.72 10*6/uLLow3.90-5.60 [facility] HospitalComment on above:Performed By: #### CBC, CMP wRFX A1C #### [facility] [address] [place], [place] [address] USAGlucose [Mass/volume] in Serum or PlasmaOrdered By: Nishant Ceja on 31-28-7293Wgmvbcy [Mass/Vol]Glucose [Mass/volume] in Serum or Plasma Ikgm86-626BzdupgnrpTrihealth Good Samaritan HospitalComment on above:ADA recommended reference rangeRandom Glucose Reference Range is dependent on time and content of last meal. Glucose of more than 200 mg/dL in a nonstressed, ambulatory subject supports the diagnosisof Diabetes Mellitus.Glucose [Mass/Vol]102 mg/dL Uhtr79-067ZicxsejbjTrihealth Good Samaritan HospitalComment on above:ADA recommended reference rangeRandom Glucose [...] By: #### CBC, CMP wRFX A1C #### [facility] [address] [place] [id number] USAHematocrit Auto (Bld) [Volume fraction]Ordered By: Nishant Ceja on 25-74-9164Iantickzyv (Bld) [Volume fraction]Hematocrit [Volume Fraction] of Blood by Automated tjofoGpb76.8-50.0[facility] HospitalHematocrit [Volume Fraction] of Blood by Automated countOrdered By: Nishant Ceja on 42-35-2364Xgbqfyzeaw (Bld) [Volume fraction]36.7 %Low38.8-50.0 [facility] HospitalComment on above:Performed By: #### CBC, CMP wRFX A1C #### [facility] [address] [place] [id number] USAHemoglobin [Mass/volume] in BloodOrdered By: Nishant Ceja on 07-43-3008Zyozuwhrht (Bld) [Mass/Vol]Hemoglobin [Mass/volume] in BloodLow 13.0-17.0[facility] HospitalHemoglobin (Bld) [Mass/Vol]12.5 g/dL Low13.0-17.0[facility] HospitalComment on above:Performed By: #### CBC, CMP wRFX A1C #### [facility] [address] [place] [phone] USALeukocytes [#/volume] corrected for nucleated erythrocytes in Blood by Automated counOrdered By: Nishant Ceja on 41-26-8887ZLU corrected for nucl RBC Auto (Bld) [#/Vol]Leukocytes [#/volume] corrected for nucleated erythrocytes in Blood by Automated counHigh4.1-10.5FFulton County Health CenterWBC corrected for nucl RBC Auto (Bld) [#/Vol]12.4 10*3/uLHigh4.1-10.5 [facility] HospitalLeukocytes [#/volume] in Blood by Automated countOrdered By: Nishant Ceja on 72-21-4401GUP (Bld) [#/Vol]12.4 10*3/uLHigh 4.1-10.5FFulton County Health CenterComment on above:Performed By: #### CBC, CMP wRFX A1C #### [facility] [address] [place] [id number] USALymphocytes Auto (Bld) [#/Vol]Ordered By: Nishant Ceja on 19-47-6934Gmyiiuzhnny (Bld) [#/Vol]Lymphocytes [#/volume] in Blood by Automated count1.00-4.8[facility]itan HospitalLymphocytes [#/volume] in Blood by Automated countOrdered By: Nishant Ceja on 13-26-3359Tkfdzvstkcw (Bld) [#/Vol]1.8 10*3/uLNormal1.00-4.8[facility] HospitalComment on above:Performed By: #### CBC, CMP wRFX A1C #### [facility] [address] [place] [id number] USALymphocytes/100 WBC Auto (Bld)Ordered By: Nishant Ceja on 11-81-2224Mlhaptbrzro/100 WBC (Bld)Lymphocytes/100 leukocytes in Blood by Automated count.[facility]aritan HospitalLymphocytes/100 leukocytes in Blood by Automated countOrdered By: Nishant Ceja on 43-01-0906Wkmcllsjbdi/100 WBC (Bld)14.2 %Normal.[facility]itan HospitalComment on above: Performed By: #### CBC, CMP wRFX A1C #### [facility] [address] [place] [id number] [facility] Auto (RBC) [Entitic mass]Ordered By: Nishant Ceja on 32-55-2097GNZ (RBC) [Entitic mass]MCH [Entitic mass] by Automated count27.5-35.2 [facility] [Entitic mass] by Automated countOrdered By: Nishant Ceja on 19-09-5959GFA (RBC) [Entitic mass]33.5 eoVapywh44.5-35.2 [facility] HospitalComment on above:Performed By: #### CBC, CMP wRFX A1C #### [facility] [address] [place] [id number] [facility] Auto (RBC) [Mass/Vol]Ordered By: Nishant Ceja on 84-59-1828FMYY (RBC) [Mass/Vol]MCHC [Mass/volume] by Automated count32.5-35.6 [facility] HospitalHC (RBC) [Mass/Vol]34.0 g/dL32.5-35.6 [facility] Auto (RBC) [Entitic vol]Ordered By: Nishant Ceja on 49-84-8559DMM (RBC) [Entitic vol]MCV [Entitic volume] by Automated count83.5-101[facility] HospitalV [Entitic volume] by Automated countOrdered By: Nishant Ceja on 14-80-6252YIX (RBC) [Entitic vol]98.5 fLNormal 83.5-101[facility] HospitalComment on above:Performed By: #### CBC, CMP wRFX A1C #### [facility] [address] [place] [phone] USAMonocytes Auto (Bld) [#/Vol]Ordered By: Nishant Ceja on 73-07-0236Rergqvueo (Bld) [#/Vol]Automated blood monocyte countHigh0.0-0.8 [facility] HospitalMonocytes [#/volume] in Blood by Automated countOrdered By: Nishant Ceja on 97-99-5489Ssygrpwnm (Bld) [#/Vol]1.2 10*3/uL High0.0-0.8[facility] HospitalComment on above:Performed By: #### CBC, CMP wRFX A1C #### [facility] [address] [place] [id number] USAMonocytes/100 WBC Auto (Bld)Ordered By: Nishant Ceja on 89-15-4991Vlykvcxph/100 WBC (Bld)Automated monocyte %.[facility] HospitalMonocytes/100 leukocytes in Blood by Automated countOrdered By: Nishant Ceja on 28-14-7776Iuafyfsld/100 WBC (Bld)9.5 %Normal.[facility] HospitalComment on above:Performed By: #### CBC, CMP wRFX A1C #### [place] [id number] USANeutrophils Auto (Bld) [#/Vol]Ordered By: Nishant Ceja on 20-20-4353Npkxnkbyezm (Bld) [#/Vol]Neutrophils [#/volume] in Blood by Automated countHigh1.8-7.7FFulton County Health CenterNeutrophils [#/volume] in Blood by Automated countOrdered By: Nishant Ceja on 30-05-2653Mlahsaossse (Bld) [#/Vol]9.4 10*3/uLHigh1.8-7.7FFulton County Health CenterComment on above: Performed By: #### CBC, CMP wRFX A1C #### [facility] [address] [place] [phone] USANeutrophils/100 WBC Auto (Bld)Ordered By: Nishant Ceja on 80-65-5470Njcxngiphqm/100 WBC (Bld)Automated neutrophil %.[facility] HospitalNeutrophils/100 leukocytes in Blood by Automated countOrdered By: Nishant Ceja on 57-78-3167Ggyxdcxwxuj/100 WBC (Bld)75.6 %Normal.[facility]aritan HospitalComment on above:Performed By: #### CBC, CMP wRFX A1C #### [facility] [address] [place] [phone] USANo Panel InformationOrdered By: Nishant Ceja on 65-79-9688Bysbgcduu GFR (CKD-EPI)> 60.0 mL/MinTrihealth Good Samaritan Hospital Pharmacy Creatinine Clearance (Bdhn451.38[facility] Nucleated erythrocytes [Presence] in Blood by Automated countOrdered By: Nishant Ceja on 70-46-8212Ozmfbnxev RBC Auto Ql (Bld)Nucleated erythrocytes [Presence] in Blood by Automated count0-0.5FFulton County Health CenterNucleated RBC Auto Ql (Bld)0.1 /100{WBC}0-0.5FFulton County Health CenterPlatelet mean volume Auto (Bld) [Entitic vol]Ordered By: Nishant Ceja on 55-46-6914Uyigusah mean volume (Bld) [Entitic vol]Platelet mean volume [Entitic volume] in Blood by Automated count6.6-10.1FFulton County Health CenterPlatelet mean volume [Entitic volume] in Blood by Automated countOrdered By: Nishant Ceja on 72-82-3669Mstloadg mean volume (Bld) [Entitic vol]8.6 fLNormal6.6-10.1FFulton County Health CenterComment on above:Performed By: #### CBC, CMP wRFX A1C #### [facility] [address] [place] [phone] USAPlatelets Auto (Bld) [#/Vol]Ordered By: Nishant Ceja on 62-00-4487Jxgsnjifq (Bld) [#/Vol]Platelets [#/volume] in Blood by Automated -644Euewtzq[address] [place], [place] [address]Platelets [#/volume] in Blood by Automated countOrdered By: Nishant Ceja on 50-15-9533Xsjiogptb (Bld) [#/Vol]209 10*3/cICjtwms887-142Ssrlxcpjs[address] [place], [place] [address]Comment on above:Performed By: #### CBC, CMP wRFX A1C #### [facility] [address] [place] [phone] USAPotassium [Moles/volume] in Serum or PlasmaOrdered By: Nishant Ceja on 23-32-8123Zsawmmjgg [Moles/Vol]Potassium [Moles/volume] in Serum or Plasma3.5-5.1FFulton County Health CenterPotassium [Moles/Vol]4.1 mmol/LNormal3.5-5.1FFulton County Health CenterComment on above:Performed By: #### CBC, CMP wRFX A1C #### [facility] [address] [place] [address] USARBC Auto (Bld) [#/Vol]Ordered By: Nishant Ceja on 42-70-9557OQC (Bld) [#/Vol]Erythrocytes [#/volume] in Blood by Automated count Low3.90-5.60Wood County Hospitalerum or plasma anion gap determinationOrdered By: Nishant Ceja on 29-33-1222Bhgfd gap [Moles/Vol]Serum or plasma anion gap determination6.0-15.0[facility] HospitalAnion gap [Moles/Vol]13.6 mmol/LNormal6.0-15.0[facility] HospitalComment on above:Performed By: #### CBC, CMP wRFX A1C #### [facility] [address] [place] [address] USASodium [Moles/volume] in Serum or PlasmaOrdered By: Nishant Ceja on 40-27-4975Swdros [Moles/Vol]Sodium [Moles/volume] in Serum or Plasma Oew780-867JkiozoztlWood County Hospitalodium [Moles/Vol]129 mmol/LLow 136-145[facility]itan HospitalComment on above:Performed By: #### CBC, CMP wRFX A1C #### [facility] [address] [place] [address] USAUrea nitrogen [Mass/volume] in Serum or PlasmaOrdered By: Nishant Ceja on 44-87-9555Axlr nitrogen [Mass/Vol]Urea nitrogen [Mass/volume] in Serum or Plasma02-06[facility]aritan HospitalUrea nitrogen [Mass/Vol] 12 mg/dLNormal02-06[facility] HospitalComment on above:Performed By: #### CBC, CMP wRFX A1C #### [place] [address] USAWBC Auto (Bld) [#/Vol]Ordered By: Nishant Ceja on 36-90-5445PCI (Bld) [#/Vol]Leukocytes [#/volume] in Blood by Automated countHigh 4.1-10.5FFulton County Health CenterABO/Rh Retypeon 34-87-7091TDY/RH Recheck ResultPositiveNormalThe [facility] Physician GroupComment on above:Result Comment: PERFORMED BY: [place] [address] PATHOLOGIST [employer] CHACORTA DE DIOS M.D.Basic Metabolic Panelon 19-08-1340Lmarr gap [Moles/Vol]12.5 mmol/LNormal6.0-15.0[facility] Physician GroupComment on above:Performed By: #### BMP, PT, MG, PTT, CBC #### [place] [address] USACalcium [Mass/Vol]8.6 mg/dLNormal8.6-10.3The [facility] Physician GroupComment on above:Performed By: #### BMP, PT, MG, PTT, CBC #### [place] [address] USAChloride [Moles/Vol]99 mmol/HRkkhja60-964Off [facility] Physician GroupComment on above:Performed By: #### BMP, PT, MG, PTT, CBC #### [place] [address] USACO2 [Moles/Vol]21.5 mmol/GUifgml06.0-31.0[facility] Physician GroupComment on above:Performed By: #### BMP, PT, MG, PTT, CBC #### [place] [address] USACreatinine [Mass/Vol]0.78 mg/dLNormal0.70-1.30The [facility] Physician GroupComment on above:Performed By: #### BMP, PT, MG, PTT, CBC #### [place] [address] USACreatinine Clr Calc Ynzepkgh379.55NormalThe [facility] Community Hospital Physician GroupComment on above:Performed By: #### BMP, PT, MG, PTT, CBC #### [facility] [address] [place] [address] USAGFR/1.73 sq M.predicted MDRD (S/P/Bld) [Vol rate/Area] mL/min/{1.73_m2}NormalThe [facility] Hospital Physician GroupComment on above:Performed By: #### BMP, PT, MG, PTT, CBC #### [facility] [address] [place] [address] USAGlucose [Mass/Vol]89 mg/rYDwxiri41-414Jtj [facility] Physician GroupComment on above:Result Comment: Random Glucose Reference Range is dependent on time and content of last meal. Glucose of more than 200 mg/dL in a nonstressed, ambulatory subject supports the diagnosis of Diabetes Mellitus. ADA recommended reference rangePerformed By: #### BMP, PT, MG, PTT, CBC #### [facility] [address] [place] [address] USAPotassium [Moles/Vol]4.0 mmol/LNormal3.5-5.1The [facility] Physician GroupComment on above:Performed By: #### BMP, PT, MG, PTT, CBC #### [facility] [address] [place] [address] USASodium [Moles/Vol]129 mmol/IXws791-723Kjm [facility] Physician GroupComment on above:Performed By: #### BMP, PT, MG, PTT, CBC #### [facility] [address] [place] [address] USAUrea nitrogen [Mass/Vol]14 mg/dLNormal7-25The [facility] Physician GroupComment on above:Performed By: #### BMP, PT, MG, PTT, CBC #### [facility] [address] [place] [address] USAComplete Blood Count Auto Diffon 46-87-1235Esafgrzat (Bld) [#/Vol]0.1 10*3/uLNormal0.0-0.2The [facility] Physician GroupComment on above: Result Comment: PERFORMED BY: [place] [address] PATHOLOGIST [employer] CHACORTA DE DIOS M.D.Performed By: #### BMP, PT, MG, PTT, CBC #### [place] [address] USABasophils/100 WBC (Bld)0.6 %Normal.[facility] Physician GroupComment on above:Performed By: #### BMP, PT, MG, PTT, CBC #### [place] [address] USAEosinophils (Bld) [#/Vol]0.0 10*3/uLNormal0.0-0.45The [facility] Physician GroupComment on above:Performed By: #### BMP, PT, MG, PTT, CBC #### [place] [address] USAEosinophils/100 WBC (Bld)0.5 %Normal.[facility] Physician GroupComment on above:Performed By: #### BMP, PT, MG, PTT, CBC #### [place] [address] USAErythrocyte distribution width (RBC) [Ratio]13.8 %Normal 12.0-14.8[facility] Physician GroupComment on above:Performed By: #### BMP, PT, MG, PTT, CBC #### [place] [address] USAHematocrit (Bld) [Volume fraction]39.2 %Fnijfj09.8-50.0[facility] Physician GroupComment on above:Performed By: #### BMP, PT, MG, PTT, CBC #### [place] [address] USAHemoglobin (Bld) [Mass/Vol]13.6 g/sIEhppca84.0-17.0The [facility] Physician GroupComment on above:Performed By: #### BMP, PT, MG, PTT, CBC #### [place] [address] USALymphocytes (Bld) [#/Vol]2.2 10*3/uLNormal1.00-4.8The [facility] Physician GroupComment on above:Performed By: #### BMP, PT, MG, PTT, CBC #### [place] [address] USALymphocytes/100 WBC (Bld)24.7 %Normal.The [facility] Physician GroupComment on above:Performed By: #### BMP, PT, MG, PTT, CBC #### [address]H (RBC) [Entitic mass]34.4 lcAdtchx76.5-35.2The [facility] Physician GroupComment on above:Performed By: #### BMP, PT, MG, PTT, CBC #### [address]V (RBC) [Entitic vol]99.1 kZJyiuro63.5-101The [facility] Physician GroupComment on above:Performed By: #### BMP, PT, MG, PTT, CBC #### [place] [address] USAMean Corpuscular HGB Conc34.7 g/aWGshajz61.5-35.6The [facility] Physician GroupComment on above:Performed By: #### BMP, PT, MG, PTT, CBC #### [place] [address] USAMonocytes (Bld) [#/Vol]0.8 10*3/uLNormal0.0-0.8The [facility] Physician GroupComment on above:Performed By: #### BMP, PT, MG, PTT, CBC #### [place] [address] USAMonocytes/100 WBC (Bld)9.0 %Normal.The [facility] Physician GroupComment on above:Performed By: #### BMP, PT, MG, PTT, CBC #### [place] [address] USANeutrophils (Bld) [#/Vol]5.9 10*3/uLNormal1.8-7.7The [facility] Physician GroupComment on above:Performed By: #### BMP, PT, MG, PTT, CBC #### [facility] [address] [place] [address] USANeutrophils/100 WBC (Bld)65.2 %Normal.The [facility] Physician GroupComment on above:Performed By: #### BMP, PT, MG, PTT, CBC #### [facility] [address] [place] [address] USANRBC%0.0 /100{WBC}Normal0-0.5The [facility] Comment on above:Performed By: #### BMP, PT, MG, PTT, CBC #### [facility] [address] [place] [address] USAPlatelet mean volume (Bld) [Entitic vol]7.8 fLNormal 6.6-10.1The [facility] Physician GroupComment on above:Performed By: #### BMP, PT, MG, PTT, CBC #### [facility] [address] [place] [address] USAPlatelets (Bld) [#/Vol]196 10*3/pSPqdgdt616-905Nrg [facility] Physician GroupComment on above:Performed By: #### BMP, PT, MG, PTT, CBC #### [facility] [address] [place] [address] USARBC (Bld) [#/Vol]3.96 10*6/uLNormal3.90-5.60The [facility] Physician GroupComment on above:Performed By: #### BMP, PT, MG, PTT, CBC #### [facility] [address] [place] [address] USAWBC (Bld) [#/Vol]9.0 10*3/uLNormal4.1-10.5The [facility] Physician GroupComment on above:Performed By: #### BMP, PT, MG, PTT, CBC #### [facility] [address] [place] [address] USAECG 12 lead ECGon 69-90-7199OHC 12 lead [facility] [place] [address] [place] [id number] Electrocardiograph Report Signed Patient: Rehan Trejo MR#: [id number] : 1965 Acct:[id number] Age/Sex: 59 / M ADM Date: 12/01/24 Loc: Room: [address] [place] [address] Type: ADM IN Attending Dr: Luis Alberto [...] Signed By Deep Amado MD 0 12/02/24 0957[facility] Physician GroupINR in Platelet poor plasma by Coagulation assayOrdered By: Diana Forde on 25-16-9042MNO Coag (PPP) [Relative time]INR in Platelet poor plasma by Coagulation assayTrihealth Good Samaritan HospitalComment on above:INR Therapeutic Range A) Pre- [...] 3 - 4.5INR Coag (PPP) [Relative time]0.9 {INR}City HospitalComment on above:INR Therapeutic Range A) Pre- [...] #### BMP, PT, MG, PTT, CBC #### [address] [address] [facility] 12-02-2024 Specimen: [id number] Received: 12/03/24 Status: SUSAN Garnica Num: [id number] Spec Type: Surgical Subm Dr: Nishant Ceja, DO Tissues: A Femoral Head - Fracture (R HIP) Procedures: HE/2, Gross/Micro L4, Decalcification Age/ Patient Sex Location Account Attending Physician Rehan Trejo 59/M 4N [id number] Luis Alberto Hearn MD SPEC NUM: [id number] RECD: 12/03/24 STATUS: SUSAN GARNICA NUM: [id number] BEA: 12/02/24-[address]: Nishant Ceja DO ENTERED: 12/03/[address]: JUSTIN TYPE: Surgical DEPT: S ENTERED BY: [id number] RECV BY: [id number] ORDERED: HE/2, Gross/Micro L4, Decalcification ORDERED: HE/2, [...] to yellow-bond, glistening, and uniform cut surfaces. [employer] Specials sections are submitted in A1?A2 after decalcification in rapid Abdoul immuno. (2, , D43-4839 A) Microscopic Description Microscopic examination is performed. Specimen: [id number] Received: 12/03/24 Status: SUSAN Garnica Num: [id number] Spec Type: Surgical Subm Dr: iNshant Ceja DO Tissues: A Femoral Head - Fracture (R HIP) Procedures: HE/2, Gross/Micro L4, Decalcification Patient: Rehan Trejo [id number] (Continued) Specimen: [id number] Received: 12/03/24 (Continued) Signed (signature on file) Rahul Correia MD 12/10/24925 (signature on file) Rustam Correia MD 12/10/24926 Specimen: [id number] Received: 12/03/24 Status: SUSAN Garnica Num: [id number] Spec Type: Surgical Subm Dr: Nishant Ceja DO Tissues: A Femoral Head - Fracture (R HIP) Procedures: HE/2, Gross/Micro L4, Decalcification Patient: Rehan Trejo [id number] (Continued) Specimen: [id number] Received: 12/03/24 (Continued) CPT Codes 76478, 00218 Specimen: [id number] Received: 12/03/24 Status: SUSAN Garnica Num: [id number] Spec Type: Surgical Subm Dr: Nishant Ceja DO Tissues: A Femoral Head - Fracture (R HIP) Procedures: HE/2, Gross/Micro L4, Decalcification Patient: Rehan Trejo [id number] (Continued) Signed (signature on file) Rahul Correia MD 12/10/24925 (signature on file) Rahul Correia MD 12/10/24 09NoNov[facility] Health [facility] Physician GroupMagnesium [Mass/volume] in Serum or PlasmaOrdered By: Diana Forde on 48-37-0863Sevslstuo [Mass/Vol]Magnesium [Mass/volume] in Serum or Plasma1.9-2.7FFulton County Health CenterMagnesium [Mass/Vol]2.2 mg/dL Normal1.9-2.7FFulton County Health CenterComment on above:Result Comment: PERFORMED BY: [facility] [place] [address] PATHOLOGIST [employer]TER CHACORTA DE DIOS M.D.Performed By: #### BMP, PT, MG, PTT, CBC #### [facility] [address] [place] [address] USAPartial Thromboplastin Timeon 31-29-8960qUGC Coag (Bld) [Time]27.2 bXgadpe84.1-36.5The [facility] Physician GroupComment on above:Result Comment: A hematocrit value greater than 55% may lead to inaccurate results in coagulation testing. Patients having hematocrit values >55% require a special collection tube for coagulation studies. Please contact the laboratory at [phone] for redraw instructions. PERFORMED BY: [address] [place] [id number] PATHOLOGIST [employer] CHACORTA DE DIOS M.D.Performed By: #### BMP, PT, MG, PTT, CBC #### [address] [address] USAProthrombin time (PT)Ordered By: Diana Forde on 12-02-2024 PT Coag (PPP) [Time]Prothrombin time (PT)9.0-12.9Tri[facility] Good Samaritan HospitalComment on above:A hematocrit value greater than 55% may lead to inaccurate results in coagulation testing. Patientshaving hematocrit values >55% require a special collection tube for coagulation studies. Please contact the laboratory at [phone] for redraw instructions.PT Coag (PPP) [Time]10.6 s Normal9.0-12.9Tri[facility] Good Samaritan HospitalComment on above:A hematocrit value greater than 55% may lead to inaccurate results in coagulation testing. Patientshaving hematocrit values >55% require a special collection tube for coagulation studies. Please contact the laboratory at [phone] for redraw instructions.Result Comment: A hematocrit value greater than 55% may lead to inaccurate results in coagulation testing. Patients having hematocrit values >55% require a special collection tube for coagulation studies. Please contact the laboratory at [phone] for redraw instructions.Performed By: #### BMP, PT, MG, PTT, CBC #### [address] [address] USAType and Screenon 34-82-1169AYB and Rh group Nom (Bld) Blood group B Rh(D) positiveCoral Gables Hospital Physician GroupComment on above: Result Comment: PERFORMED BY: [place] [id number] PATHOLOGIST [employer] CHACORTA DE DIOS M.D.XR hip RT min 2V(w/wo pelvis)*on 73-23-6438EO hip RT min 2V(w/wo pelvis)*[facility] Main [place] [id number] XRay Report Signed Patient: Rehan Trejo MR#: [id number] : 1965 Acct:[id number] Age/Sex: 59 / M ADM Date: 12/01/24 Loc: Room: [address] [place] [address] Type: ADM IN Attending Dr: Luis Alberto [...] Rivera M.D. 12/02/2024 8:15 AM Dictation Location: [place] [address] Transcribed By: [facility] 12/02/24 0815 Dictated By: Nikos Rivera MD 12/02/24 0812 Signed By: 12/02/24 0815OlyaNovant Health Brunswick Medical Center Physician GroupXR low pelvis w/RT x-table hipon 87-25-8792OF low pelvis w/RT x-table hipTOL[place] [address] XRay Report Signed Patient: Rehan Trejo MR#: [id number] : 1965 Acct:[id number] Age/Sex: 59 / M ADM Date: 12/01/24 Loc: 4N Room: [address] [place] [address] Type: ADM IN Attending Dr: Luis Alberto [...] Saxena M.D. 12/02/2024 9:09 PM Dictation Location: [place] [address] Transcribed By: [facility] 12/02/242108 Dictated By: Zaire Saxena DO 12/02/242106 Signed By: 12/02/242108C[facility] Physician GroupaPTT in Platelet poor plasma by Coagulation assayOrdered By: Diana Forde on 10-53-2050vWAO Coag (PPP) [Time] Activated partial thromboplastin time (aPTT) in platelet poor plasma by coagulation a25.1-36.5FFulton County Health CenterComment on above:A hematocrit value greater than 55% may lead to inaccurate results in coagulation testing. Patientshaving hematocrit values >55% require a special collection tube for coagulation studies. Please contact the laboratory at [phone] for redraw instructions.aPTT Coag (PPP) [Time]27.2 s25.1-36.5FFulton County Health CenterComment on above:A hematocrit value greater than 55% may lead to inaccurate results in coagulation testing. Patientshaving hematocrit values >55% require a special collection tube for coagulation studies. Please contact the laboratory at [phone] for redraw instructions.Office Visiton 10-01-2024 Follow-up [id number] Rehan Trejo 1965 M Date Provider Department Center 10/01/2024 27189-ETXGCKELISABETH VIDAL [facility] No family history on file Level of Service:88893 ID OFFICE/OUTPATIENT ESTABLISHED MOD MDM 30 MIN Reason for Visit and Comments: Chest Pain [498700] - Intermittent, describes it as sharp at times. Hypertension [298350] Hyperlipidemia [182] - He stopped taking atorvastatin for no reason in particular. Abnormal ECG [293] - Has loop recorder, denies palpitations and lightheadedness/syncope. Shortness of Breath [643804] - Gets SOB w/wo exertion.NormalUnProtestant Deaconess HospitalCBC AUTO DIFFon 75-71-1896KDIE #0.0 103/ulNormal0.0-0.1[facility] For RehabilitationComment on above:Performed By: #### BNP, T7, CMP, TSH #### [facility] [address] [place] [address] Dr. Deutsch ChangBasophils/100 WBC (Bld)0.4 %Normal0.2-2.0[facility] Comment on above:Performed By: #### BNP, T7, CMP, TSH #### [facility] [address] [place] [address] Dr. Get Babcock #0.1 103/ulNormal0.0-0.7The [facility]al HospitalComment on above: Performed By: #### BNP, T7, CMP, TSH #### [facility] [address] [place] [address] Dr. Get Paytonosinophils/100 WBC (Bld)0.5 %Critically low0.9-7.0[facility] Hospital For RehabilitationComment on above:Performed By: #### BNP, T7, CMP, TSH #### [facility] [address] [place] [address] Dr. Get Paytonrythrocyte distribution width (RBC) [Ratio]18.6 %Critically high 11.0-15.0The [facility]al HospitalComment on above:Performed By: #### BNP, T7, CMP, TSH #### [facility] [address] [place] [address] Dr. Get WhittenHematocrit (Bld) [Volume fraction]33.3 %Critically low42.0-54.0 The [facility]al HospitalComment on above:Performed By: #### BNP, T7, CMP, TSH #### [facility] [address] [place] [address] Dr. Get WhittenHemoglobin (Bld) [Mass/Vol]11.1 g/dLCritically low14.0-18.0The [facility] HospitalComment on above:Performed By: #### BNP, T7, CMP, TSH #### [facility] [address] [place] [address] Dr. Get Sanford #0.30 10e3/ulCritically high0.00-0.03The [facility] Comment on above:Performed By: #### BNP, T7, CMP, TSH #### [facility] [address] [place] [address] Dr. Get Sanford %3.3 %Critically high0.0-0.5The [facility]al HospitalComment on above:Performed By: #### BNP, T7, CMP, TSH #### [facility] [address] [place] [address] Dr. Get Otoole #3.0 103/ulNormal1.2-3.8The [facility]al HospitalComment on above:Performed By: #### BNP, T7, CMP, TSH #### [facility] [address] [place] [address] Dr. Get Ramirezhocytes/100 WBC (Bld)32.7 %Wytfli45.5-60.0The [facility]al HospitalComment on above:Performed By: #### BNP, T7, CMP, TSH #### [facility] [address] [place] [address] Dr. Get HeadUAL DIFF REQNONormalThe [facility] HospitalComment on above: Performed By: #### BNP, T7, CMP, TSH #### [facility] [address] [place] [address] Dr. Get Manley (RBC) [Entitic mass]34.8 pgCritically high25.9-34.0The [facility] HospitalComment on above:Performed By: #### BNP, T7, CMP, TSH #### [facility] [address] [place] [address] Dr. Get Fried (RBC) [Mass/Vol]33.3 g/cZCmdico01.9-35.2The [facility] HospitalComment on above:Performed By: #### BNP, T7, CMP, TSH #### [facility] [address] [place] [address] Dr. Get WhittenALLIANCEHE[facility] [place] ([place]) [Entitic vol]104.4 fLCritically high80.0-94.0The [facility] HospitalComment on above:Performed By: #### BNP, T7, CMP, TSH #### [facility] [address] [place] [address] Dr. Get Bill #0.4 103/ulNormal0.3-0.8The [facility] HospitalComment on above:Performed By: #### BNP, T7, CMP, TSH #### [facility] [address] [place] [address] Dr. Get Lockettocytes/100 WBC (Bld)4.2 %Normal1.7-12.0The [facility] Comment on above:Performed By: #### BNP, T7, CMP, TSH #### [facility] [address] [place] [address] Dr. Get Falcon #5.4 103/ulNormal1.4-6.5The [facility] HospitalComment on above:Performed By: #### BNP, T7, CMP, TSH #### [facility] [address] [place] [address] Dr. Get Andersonutrophils/100 WBC (Bld)58.9 %Hymagm21.0-75.0The [facility] HospitalComment on above:Performed By: #### BNP, T7, CMP, TSH #### [facility] [address] [place] [address] Dr. Get Hanleylet mean volume (Bld) [Entitic vol]9.5 fLNormal9.5-13.5The [facility] HospitalComment on above:Performed By: #### BNP, T7, CMP, TSH #### [facility] [address] [place] [address] Dr. Get WhittenPLT187 103/aeRbdonf498-784Ogc [facility] Regional Medical Centerment on above: Performed By: #### BNP, T7, CMP, TSH #### [facility] [address] [place] [address] Dr. Get WhittenRBC3.19 106/ulCritically low4.70-6.10The [facility] HospitalComment on above:Performed By: #### BNP, T7, CMP, TSH #### [facility] [address] [place] [address] Dr. Get WhittenWBC9.1 103/ulNormal4.0-11.0The [facility] on above: Performed By: #### BNP, T7, CMP, TSH #### [facility] [address] [place] [address] Dr. Get VickF 14(COMP METB)on 91-11-1169Xvfspeh [Mass/Vol]3.9 g/dLNormal 3.4-5.0The [facility] HospitalCompaul [facility] on above:Performed By: #### CMP #### [facility] [address] [place] [address] Dr. Get WhittenAlbumin/Globulin [Mass ratio]1.1 {ratio}NormalThe [facility] HospitalCompaul [facility] on above:Performed By: #### CMP #### [facility] [address] [place] [address] Dr. Get Saba [Catalytic activity/Vol]34 U/LCritically ude43-779Kht [facility] on above:Performed By: #### CMP #### [facility] [address] [place] [address] Dr. Get Pichardo [Catalytic activity/Vol]21 U/UEoxpxu42-54Htv [facility] HospitalComment on above:Performed By: #### CMP #### [facility] [address] [place] [address] [address] Get Torrezon gap [Moles/Vol]17.7 mmol/LNormalThe [facility] Comment on above:Performed By: #### CMP #### [facility] [address] [place] [address] [address] Get WhittenAST [Catalytic activity/Vol]15 U/LJdootp74-69Wtg [facility] HospitalComment on above:Performed By: #### CMP #### [facility] [address] [place] [address] [address] Get WhittenBilirubin [Mass/Vol]0.3 mg/dLNormal0.2-1.0The [facility] Comment on above:Performed By: #### CMP #### [facility] [address] [place] [address] [address] Gte WhittenCalcium [Mass/Vol]8.7 mg/dLNormal8.5-10.1The [facility] Comment on above:Performed By: #### CMP #### [facility] [address] [place] [address] [address] Get WhittenChloride [Moles/Vol]99 mmol/TTpmcad46-958Usc [facility] Comment on above:Performed By: #### CMP #### [facility] [address] [place] [address] [address] Get WhittenCO2 [Moles/Vol]21.8 mmol/NHhipuo56.0-32.0The [facility] Comment on above:Performed By: #### CMP #### [facility] [address] [place] [address] [address] Get WhittenCreatinine [Mass/Vol]1.69 mg/dLCritically high0.70-1.30The [facility] HospitalComment on above:Performed By: #### CMP #### [facility] [address] [place] [address] [address] Deutsch ChangEGFR-AF BVKVHABG40 mL/min/1.61c9Lwrbyxtvbx low>=60The [facility] HospitalComment on above:Performed By: #### CMP #### [facility] [address] [place] [address] [address] Get PaytonGFR-NON AF VHENNVYZ55 mL/min/1.39c0Zfxzivjljg low>=60The [facility] HospitalComment on above:Performed By: #### CMP #### [facility] [address] [place] [address] [address] Get WhittenGlobulin (S) [Mass/Vol]3.6 g/dLNormCleveland Clinic Medina HospitalComment on above:Performed By: #### CMP #### [facility] [address] [place] [address] [address] Get WhittenGlucose [Mass/Vol]96 mg/lMDwdriz17-518Neb [facility] Comment on above:Performed By: #### CMP #### [facility] [address] [place] [address] [address] Get WhittenPotassium [Moles/Vol]3.5 mmol/LNormal3.5-5.1The [facility] Comment on above:Performed By: #### CMP #### [facility] [address] [place] [address] [address] Get WhittenProtein [Mass/Vol]7.5 g/dLNormal6.4-8.2The [facility] Comment on above:Performed By: #### CMP #### [facility] [address] [place] [address] [address] Get WhittenSodium [Moles/Vol]135 mmol/LCritically bbr440-447Vth [facility] HospitalComment on above:Performed By: #### CMP #### [facility] [address] [place] [address] [address] Get WhittenUrea nitrogen [Mass/Vol]15.0 mg/dLNormal7.0-18.0The [facility] HospitalComment on above:Performed By: #### CMP #### [facility] [address] [place] [address] [address] Get WhittenUrea nitrogen/Creatinine [Mass ratio]8.9 mg/mgNormCleveland Clinic Medina HospitalComment on above:Performed By: #### CMP #### [facility] [address] [place] [address] Dr. Get WhittenT3, TOTAL (TRIIODOTHYRONINE)on 83-75-8784R8, TOTAL<20Critically mgi08-022Lwg [facility] HospitalComment on above:Performed By: #### CVDTBH #### [facility] [address] [place] [address] Dr. Get Leonardon 76-29-3010Tqhkoai (P) [Mass/Vol]ug/dLCritically low 11-32The [facility] HospitalComment on above:Performed By: #### CMP #### [facility] [address] [place] [address] Dr. Get Dawson 40-40-2736Rvdpcxwxsou peptide B (Bld) [Mass/Vol]50.0 pg/mL Normal<=900.0The [facility] HospitalComment on above:Performed By: #### BNP, T7, CMP, TSH #### [facility] [address] [place] [address] Dr. Get Crockett ANA ADMITon 74-98-2546FB [Catalytic activity/Vol]173 U/L Jsoufw13-282Ytl [facility] HospitalComment on above:Performed By: #### BNP, T7, CMP, TSH #### [facility] [address] [place] [address] Dr. Get Melara.MB [Mass/Vol]1.64 ng/mLNormal<=3.60The [facility] Comment on above:Performed By: #### BNP, T7, CMP, TSH #### [facility] [address] [place] [address] Dr. Get WhittenHSTROP4.3 pg/mLNormal4.0-76.1The [facility] HospitalComment on above:Result Comment: CUT-OFF POINTS HAVE BEEN ESTABLISHED BASED ON THE FOURTH UNIVERSAL DEFINITIONS OF MYOCARDIAL INFARCTION. THE UPPER REFERENCE LIMIT (URL) OF TROPONIN, DEFINED THE 99TH PERCENTILE OF cTnI DISTRIBUTION IN A REFERENCE POPULATION, HAS BEEN CONFIRMED THE DECISION THRESHOLD FOR CA DIAGNOSIS.Performed By: #### BNP, T7, CMP, TSH #### [facility] [address] [place] [address] Dr. Get Rod72 ng/yHPpypsb21-53Scq [facility] Medical Centerment on above: Performed By: #### BNP, T7, CMP, TSH #### [facility] [address] [place] [address] Dr. Get Meyer AUTO DIFFon 39-82-4079BEXO #0.1 103/ulNormal0.0-0.1The [facility] HospitalComment on above:Performed By: #### CVDTBH #### [facility] [address] [place] [address] Dr. Get WhittenBasophils/100 WBC (Bld)0.6 %Normal0.2-2.0The [facility] Comment on above:Performed By: #### CVDTBH #### [facility] [address] [place] [address] Dr. Get Babcock #0.0 103/ulNormal0.0-0.7The [facility] HospitalComment on above: Performed By: #### CVDTBH #### [facility] [address] [place] [address] Dr. Get Paytonosinophils/100 WBC (Bld)0.4 %Critically low0.9-7.0The [facility] Regional Medical Centerment on above:Performed By: #### CVDTBH #### [facility] [address] [place] [address] Dr. Get Paytonrythrocyte distribution width (RBC) [Ratio]18.6 %Critically high 11.0-15.0The [facility] Regional Medical Centerment on above:Performed By: #### CVDTBH #### [facility] [address] [place] [address] Dr. Get WhittenHematocrit (Bld) [Volume fraction]35.4 %Critically low42.0-54.0 The [facility] Centerment on above:Performed By: #### CVDTBH #### [facility] [address] [place] [address] Dr. Get WhittenHemoglobin (Bld) [Mass/Vol]11.9 g/dLCritically low14.0-18.0The [facility] HospitalComment on above:Performed By: #### CVDTBH #### [facility] [address] [place] [address] Dr. Get Sanford #0.28 10e3/ulCritically high0.00-0.03The [facility] Comment on above:Performed By: #### CVDTBH #### [facility] [address] [place] [address] Dr. Get Sanford %3.5 %Critically high0.0-0.5The [facility]al HospitalComment on above:Performed By: #### CVDTBH #### [facility] [address] [place] [address] Dr. Get Otoole #3.3 103/ulNormal1.2-3.8The [facility] HospitalComment on above:Performed By: #### CVDTBH #### [facility] [address] [place] [address] Dr. Get Ramirezhocytes/100 WBC (Bld)41.6 %Gmemvq69.5-60.0The [facility] HospitalComment on above:Performed By: #### CVDTBH #### [facility] [address] [place] [address] Dr. Get Ace DIFF REQNONormalThe [facility]al HospitalComment on above: Performed By: #### CVDTBH #### [facility] [address] [place] [address] Dr. Get Manley (RBC) [Entitic mass]35.1 pgCritically high25.9-34.0The [facility] HospitalComment on above:Performed By: #### CVDTBH #### [facility] [address] [place] [address] Dr. Get Fried (RBC) [Mass/Vol]33.6 g/hXAqivbv45.9-35.2The [facility] HospitalComment on above:Performed By: #### CVDTBH #### [facility] [address] [place] [address] Dr. Get FriedV (RBC) [Entitic vol]104.4 fLCritically high80.0-94.0The [facility] HospitalComment on above:Performed By: #### CVDTBH #### [facility] [address] [place] [address] Dr. Get Bill #0.4 103/ulNormal0.3-0.8The [facility] HospitalComment on above:Performed By: #### CVDTBH #### [facility] [address] [place] [address] Dr. Get Lockettocytes/100 WBC (Bld)5.0 %Normal1.7-12.0The [facility] Comment on above:Performed By: #### CVDTBH #### [facility] [address] [place] [address] Dr. Get Falcon #3.9 103/ulNormal1.4-6.5The [facility] HospitalComment on above:Performed By: #### CVDTBH #### [facility] [address] [place] [address] Dr. Get Andersonutrophils/100 WBC (Bld)48.9 %Eqfofh39.0-75.0The [facility] HospitalComment on above:Performed By: #### CVDTBH #### [facility] [address] [place] [address] Dr. Get Hanleylet mean volume (Bld) [Entitic vol]9.5 fLNormal9.5-13.5The [facility] HospitalComment on above:Performed By: #### CVDTBH #### [facility] [address] [place] [address] Dr. Get WhittenPLT182 103/scXdgkle308-322Kbm [facility] HospitalComment on above: Performed By: #### CVDTBH #### [facility] [address] [place] [address] Dr. Get WhittenRBC3.39 106/ulCritically low4.70-6.10The [facility] HospitalComment on above:Performed By: #### CVDTBH #### [facility] [address] [place], [place] [address] Dr. Get WhittenWBC8.0 103/ulNormal4.0-11.0The [facility] HospitalComment on above: Performed By: #### CVDTBH #### [facility] [address] [place], [place] [address] Dr. Get WhittenCT CSPINE WO CONon 54-32-3759HJ CSPINE WO CONEXAMINATION: CT CSPINE WO CON [...] Electronically authenticated by: SHEN SOSA Date: 2022-11-27 11:26[facility] CenterCT STROKE HEAD WOon [id number] STROKE HEAD WOEXAMINATION: CT STROKE HEAD WO [...] Electronically authenticated by: SHEN SOSA Date: 2022-11-27 11:16NoDiley Ridge Medical CenterCovid-19 PCR (CVDTBH)on 46-82-4889ZANG-CoV-2 (COVID-19) RNA ASHLEE+probe Ql (Unsp spec)Not detectedNormalNOT DETECTEDCleveland Clinic Children'S [facility] For [facility] Comment on above:Result Comment: THIS TEST IS NOT APPROVED BY THE FDA. IT HAS BEEN AUTHORIZED FOR USE UNDER AN EMERGENCY USE AUTHORIZATION.Performed By: #### CMP #### [facility] [address] [place] [address] Dr. Get MercadoANOL (BLD ALC)on 74-14-5477CSO NOTENOTE: 80 mg/dl is the legal limit for a blood alcohol levelNoDiley Ridge Medical CenterComment on above: Performed By: #### BNP, T7, CMP, TSH #### [facility] [address] [place] [address] [address] Get Paytonthanol [Mass/Vol]mg/dLNoDiley Ridge Medical CenterComment on above:Performed By: #### BNP, T7, CMP, TSH #### [facility] [address] [place] [address] Dr. Get WhittenMAGNESIUMon 28-30-8777Qgrwhyfvt [Mass/Vol]2.3 mg/dLNormal1.8-2.4 The [facility]al HospitalComment on above:Performed By: #### BNP, T7, CMP, TSH #### [facility] [address] [place] [address] Dr. Get Richards 14(COMP METB)on 08-04-4977Ijhjneq [Mass/Vol]4.1 g/dLNormal 3.4-5.0The [facility] HospitalComment on above:Performed By: #### BNP, T7, CMP, TSH #### [facility] [address] [address] [address] Get WhittenAlbumin/Globulin [Mass ratio]1.1 {ratio}NormalThe [facility]al HospitalComment on above:Performed By: #### BNP, T7, CMP, TSH #### [facility] [address] [address] [address] Get MartinezP [Catalytic activity/Vol]36 U/LCritically ohb80-024Qjv [facility] HospitalComment on above:Performed By: #### BNP, T7, CMP, TSH #### [facility] [address] [address] [address] Get MartinezT [Catalytic activity/Vol]15 U/LCritically abt84-34Hwa [facility] HospitalComment on above:Performed By: #### BNP, T7, CMP, TSH #### [facility] [address] [place] [address] Dr. Get Torrezon gap [Moles/Vol]15.0 mmol/LNormalThe [facility] Comment on above:Performed By: #### BNP, T7, CMP, TSH #### [facility] [address] [place] [address] Dr. Get WhitetnAST [Catalytic activity/Vol]13 U/LCritically vqa17-03Gbf [facility] HospitalComment on above:Performed By: #### BNP, T7, CMP, TSH #### [facility] [address] [place] [address] Dr. Get WhittenBilirubin [Mass/Vol]0.3 mg/dLNormal0.2-1.0The [facility] Comment on above:Performed By: #### BNP, T7, CMP, TSH #### [facility] [address] [place] [address] Dr. Get WhittenCalcium [Mass/Vol]9.1 mg/dLNormal8.5-10.1The [facility] Comment on above:Performed By: #### BNP, T7, CMP, TSH #### [facility] [address] [place] [address] Dr. Get WhittenChloride [Moles/Vol]101 mmol/YKcuiso35-812Che [facility] Comment on above:Performed By: #### BNP, T7, CMP, TSH #### [facility] [address] [address] [address] Get WhittenCO2 [Moles/Vol]22.2 mmol/ZHycnpw15.0-32.0[facility] Comment on above:Performed By: #### BNP, T7, CMP, TSH #### [facility] [address] [place] [address] Dr. Get WhittenCreatinine [Mass/Vol]1.84 mg/dLCritically high0.70-1.30The [facility] HospitalComment on above:Performed By: #### BNP, T7, CMP, TSH #### [facility] [address] [place] [address] Dr. Get PaytonGFR-AF MAHRLFWP14 mL/min/1.19m7Jtdwuwnpqj low>=60The [facility]al HospitalComment on above:Performed By: #### BNP, T7, CMP, TSH #### [facility] [address] [place] [address] Dr. Get PaytonGFR-NON AF IHZNDBKK16 mL/min/1.86k3Cccsqjkarm low>=60The [facility] HospitalComment on above:Performed By: #### BNP, T7, CMP, TSH #### [facility] [address] [place] [address] Dr. Get WhittenGlobulin (S) [Mass/Vol]3.6 g/dLNormalThe [facility] HospitalComment on above:Performed By: #### BNP, T7, CMP, TSH #### [facility] [address] [place] [address] Dr. Get WhittenGlucose [Mass/Vol]87 mg/gIAofpgb55-186VweCleveland Clinic Children'S Hospital For Rehabilitation Comment on above:Performed By: #### BNP, T7, CMP, TSH #### [facility] [address] [place] [address] Dr. Get WhittenPotassium [Moles/Vol]4.2 mmol/LNormal3.5-5.1[facility] Comment on above:Performed By: #### BNP, T7, CMP, TSH #### [facility] [address] [place] [address] Dr. Get WhittenProtein [Mass/Vol]7.7 g/dLNormal6.4-8.2The [facility] Comment on above:Performed By: #### BNP, T7, CMP, TSH #### [facility] [address] [place] [address] Dr. Get WhittenSodium [Moles/Vol]134 mmol/LCritically fkt130-806Kof [facility] HospitalComment on above:Performed By: #### BNP, T7, CMP, TSH #### [facility] [address] [place] [address] Dr. Get De Jesus nitrogen [Mass/Vol]14.0 mg/dLNormal7.0-18.0The [facility] HospitalComment on above:Performed By: #### BNP, T7, CMP, TSH #### [facility] [address] [place] [address] Dr. Get De Jesus nitrogen/Creatinine [Mass ratio]7.6 mg/mgNoDiley Ridge Medical CenterComment on above:Performed By: #### BNP, T7, CMP, TSH #### [facility] [address] [place] [address] Dr. Get Mercado 13-51-1186KWG Coag (PPP) [Relative time]0.98 {INR} NormalCleveland Clinic Children'S Hospital For RehabilitationComment on above:Performed By: #### BNP, T7, CMP, TSH #### [facility] [address] [place] [address] Dr. Get Monteiro GUIDELINESSEE BELOWCrystal Clinic Orthopedic CenterComment on above:Result Comment: DESIRED INR: 2.0 - 3.0 CONDITIONS NOT LISTED BELOW 2.5 - 3.5 FOR PROSTHETIC HEART VALVE REPLACEMENT 2.5 - 3.5 RECURRENT THROMBOSIS Performed By: #### BNP, T7, CMP, TSH #### [facility] [address] [place] [address] Dr. Get WhittenPT Coag (PPP) [Time]10.4 sNormal9.0-11.6The [facility] Comment on above:Performed By: #### BNP, T7, CMP, TSH #### [facility] [address] [place] [address] Dr. Get Henley 70-35-4846yLHR Coag (Bld) [Time]30.4 qAblawp62.3-36.2The [facility] HospitalComment on above:Performed By: #### BNP, T7, CMP, TSH #### [facility] [address] [place] [address] Dr. Get WhittenSYMPMARIUSZMATIC COVID-19 ANTIGENon 27-48-8973RJC StatementSEE BELOW NormalThe [facility]al HospitalComment on above:Result Comment: This test has [...] sooner.Performed By: #### CMP, HSTROPN, BNP #### [facility] [address] [place] [address] Dr. Get Llanos-CoV-2 (COVID-19) RNA ASHLEE+probe Ql (Unsp spec)NegativeNormal NEGATIVEThe [facility]al HospitalComment on above:Performed By: #### CMP, HSTROPN, BNP #### [facility] [address] [place] [address] Dr. Get WhittenT4on 90-97-6248G1 [Mass/Vol]0.90 ug/dLCritically low4.50-12.10The [facility] HospitalComment on above:Performed By: #### BNP, T7, CMP, TSH #### [facility] [address] [place], [place] [address] Dr. Get Charles, HIGH SENSITIVITYon 01-07-6217ORRVHB6.1 pg/mLNormal 4.0-76.1The [facility] HospitalComment on above:Result Comment: CUT-OFF POINTS HAVE BEEN ESTABLISHED BASED ON THE FOURTH UNIVERSAL DEFINITIONS OF MYOCARDIAL INFARCTION. THE UPPER REFERENCE LIMIT (URL) OF TROPONIN, DEFINED THE 99TH PERCENTILE OF cTnI DISTRIBUTION IN A REFERENCE POPULATION, HAS BEEN CONFIRMED THE DECISION THRESHOLD FOR CA DIAGNOSIS.Performed By: #### BNP, T7, CMP, TSH #### [facility] [address] [place] [address] [address] Get Hidalgo 46-39-7123ORJ942.470 uIU/mLCritically high0.358-3.740The [facility] HospitalComment on above:Performed By: #### BNP, T7, CMP, TSH #### [facility] [address] [place] [address] [address] Get WhittenXR CHEST 1 Von 58-06-4073NF CHEST 1 VEXAMINATION: XR CHEST 1 V [...] Electronically authenticated by: SHEN SOSA Date: 2022-11-27 11:19[facility] CenterXR CSPINE MIN 4 VIEWSon 69-87-5246WT CSPINE MIN 4 VIEWS EXAMINATION: XR CSPINE [...] Electronically authenticated by: SHEN SOSA Date: 2022-10-24 10:22[facility] CenterXR LSPINE MIN 4 VIEWSon 11-21-7974XK LSPINE MIN 4 VIEWS EXAMINATION: XR LSPINE [...] Electronically authenticated by: SHEN SOSA Date: 2022-10-24 10:19[facility] CenterH PYLORI ANTIBODY IGGon 04-16-2022H. PYLORI IGG ABS0.07 Index ValueNormal0.00-0.79The [facility] HospitalComment on above:Result Comment: Negative <0.80 Equivocal 0.80 - 0.89 Positive >0.89Performed By: #### BNP, T7, CMP, TSH #### [facility] [address] [place], [place] [address] Dr. Get Dawson 35-00-3764Jirhvfmxbqa peptide B (Bld) [Mass/Vol]138.0 pg/mL Normal<=900.0The [facility] HospitalComment on above:Performed By: #### BNP, T7, CMP, TSH #### [facility] [address] [place] [address] Dr. Get Meyer AUTO DIFFon 43-39-4450BQOF #0.0 103/ulNormal0.0-0.1The [facility] Centerment on above:Performed By: #### CMP, HSTROPN, BNP #### [facility] [address] [place] [address] Dr. Get WhittenBasophils/100 WBC (Bld)0.4 %Normal0.2-2.0The [facility] Comment on above:Performed By: #### CMP, HSTROPN, BNP #### [facility] [address] [place] [address] Dr. Get Babcock #0.0 103/ulNormal0.0-0.7The [facility] HospitalComment on above: Performed By: #### CMP, HSTROPN, BNP #### [facility] [address] [place] [address] Dr. Get Paytonosinophils/100 WBC (Bld)0.3 %Critically low0.9-7.0The [facility] Centerment on above:Performed By: #### CMP, HSTROPN, BNP #### [facility] [address] [place] [address] Dr. Get Paytonrythrocyte distribution width (RBC) [Ratio]13.2 %Ztsjkt41.0-15.0 The [facility] Centerment on above:Performed By: #### CMP, HSTROPN, BNP #### [facility] [address] [place] [address] Dr. Get WhittenHematocrit (Bld) [Volume fraction]37.9 %Critically low42.0-54.0 The [facility] HospitalComment on above:Performed By: #### CMP, HSTROPN, BNP #### [facility] [address] [place] [address] Dr. Get WhittenHemoglobin (Bld) [Mass/Vol]13.1 g/dLCritically low14.0-18.0The [facility] HospitalComment on above:Performed By: #### CMP, HSTROPN, BNP #### [facility] [address] [place] [address] Dr. Get Sanford #0.24 10e3/ulCritically high0.00-0.03The [facility] Comment on above:Performed By: #### CMP, HSTROPN, BNP #### [facility] [address] [place] [address] Dr. Get Sanford %3.1 %Critically high0.0-0.5The [facility] HospitalComment on above:Performed By: #### CMP, HSTROPN, BNP #### [facility] [address] [place] [address] Dr. Get Otoole #3.1 103/ulNormal1.2-3.8The [facility] HospitalComment on above:Performed By: #### CMP, HSTROPN, BNP #### [facility] [address] [place] [address] Dr. Get Ramirezhocytes/100 WBC (Bld)40.3 %Zxtgrw52.5-60.0The [facility] HospitalComment on above:Performed By: #### CMP, HSTROPN, BNP #### [facility] [address] [place] [address] Dr. Get HeadUAL DIFF REQNONormalThe [facility] HospitalComment on above: Performed By: #### CMP, HSTROPN, BNP #### [facility] [address] [place] [address] Dr. Get Manley (RBC) [Entitic mass]36.1 pgCritically high25.9-34.0The [facility] HospitalComment on above:Performed By: #### CMP, HSTROPN, BNP #### [facility] [address] [place] [address] Dr. Get Fried (RBC) [Mass/Vol]34.6 g/zQEdlchh03.9-35.2The [facility] HospitalComment on above:Performed By: #### CMP, HSTROPN, BNP #### [facility] [address] [address] [address] Get Whitten (RBC) [Entitic vol]104.4 fLCritically high80.0-94.0The [facility] HospitalComment on above:Performed By: #### CMP, HSTROPN, BNP #### [facility] [address] [place] [address] Dr. Get Bill #0.7 103/ulNormal0.3-0.8The [facility] HospitalComment on above:Performed By: #### CMP, HSTROPN, BNP #### [facility] [address] [place] [address] Dr. Get Lockettocytes/100 WBC (Bld)9.4 %Normal1.7-12.0The [facility] Comment on above:Performed By: #### CMP, HSTROPN, BNP #### [facility] [address] [place] [address] Dr. Get Falcon #3.6 103/ulNormal1.4-6.5The [facility] HospitalComment on above:Performed By: #### CMP, HSTROPN, BNP #### [facility] [address] [place] [address] Dr. Get Kelloggophils/100 WBC (Bld)46.5 %Cpects36.0-75.0The [facility] HospitalComment on above:Performed By: #### CMP, HSTROPN, BNP #### [facility] [address] [place] [address] Dr. Get Castro mean volume (Bld) [Entitic vol]8.5 fLCritically low 9.5-13.5The [facility] HospitalComment on above:Performed By: #### CMP, HSTROPN, BNP #### [facility] [address] [place] [address] Dr. Get SalazarT128 103/ulCritically urn168-623Vam [facility] HospitalComment on above:Performed By: #### CMP, HSTROPN, BNP #### [facility] [address] [place] [address] Dr. Get WhittenRBC3.63 106/ulCritically low4.70-6.10The [facility] Centerment on above:Performed By: #### CMP, HSTROPN, BNP #### [facility] [address] [place] [address] Dr. Get WhittenWBC7.7 103/ulNormal4.0-11.0The [facility] HospitalCompaul [facility] on above: Performed By: #### CMP, HSTROPN, BNP #### [facility] [address] [place] [address] Dr. Get Kelley THYROXINE INDEX T7on 52-24-2748PWP4.22Critically low 1.30-4.50The [facility] on above:Performed By: #### BNP, T7, CMP, TSH #### [facility] [address] [place] [address] Dr. Get WhittenT3U37.0 %Zcrxaa38.0-40.0The [facility] on above: Performed By: #### BNP, T7, CMP, TSH #### [facility] [address] [place] [address] Dr. Get WhittenT4 [Mass/Vol]0.60 ug/dLCritically low4.50-12.10The [facility] on above:Performed By: #### BNP, T7, CMP, TSH #### [facility] [address] [place] [address] Dr. Get Oconnell 83-53-4375Sljj [Mass/Vol]74.0 ug/tVYylwia72.0-175.0The [facility] HospitalCompaul [facility] on above:Performed By: #### CVDTBH #### [facility] [address] [place] [address] Dr. Get Richards 14(COMP METB)on 14-38-1665Rtgwcwe [Mass/Vol]3.6 g/dLNormal 3.4-5.0The [facility] HospitalComment on above:Performed By: #### BNP, T7, CMP, TSH #### [facility] [address] [address] [address] Get WhittenAlbumin/Globulin [Mass ratio]1.3 {ratio}NormalThe [facility] HospitalComment on above:Performed By: #### BNP, T7, CMP, TSH #### [facility] [address] [place] [address] Dr. Get MartinezP [Catalytic activity/Vol]41 U/LCritically zpp76-256Cnm [facility] HospitalComment on above:Performed By: #### BNP, T7, CMP, TSH #### [facility] [address] [place] [address] Dr. Get MartinezT [Catalytic activity/Vol]111 U/LCritically ruup25-47Obt [facility] HospitalComment on above:Performed By: #### BNP, T7, CMP, TSH #### [facility] [address] [place] [address] Dr. Get WhittenAnion gap [Moles/Vol]10.3 mmol/LNormalThe [facility] Comment on above:Performed By: #### BNP, T7, CMP, TSH #### [facility] [address] [place] [address] Dr. Get WhittenAST [Catalytic activity/Vol]30 U/PGcagty08-68Lhb [facility] HospitalComment on above:Performed By: #### BNP, T7, CMP, TSH #### [facility] [address] [place] [address] Dr. Get WhittenBilirubin [Mass/Vol]0.3 mg/dLNormal0.2-1.0The [facility] Comment on above:Performed By: #### BNP, T7, CMP, TSH #### [facility] [address] [place] [address] Dr. Get WhittenCalcium [Mass/Vol]8.1 mg/dLCritically low8.5-10.1The [facility] HospitalComment on above:Performed By: #### BNP, T7, CMP, TSH #### [facility] [address] [place] [address] Dr. Get WhittenChloride [Moles/Vol]98 mmol/PVbajyj78-173Lxe [facility] Comment on above:Performed By: #### BNP, T7, CMP, TSH #### [facility] [address] [address] [address] Get WhittenCO2 [Moles/Vol]24.7 mmol/FBhyreu60.0-32.0The [facility] Comment on above:Performed By: #### BNP, T7, CMP, TSH #### [facility] [address] [place] [address] Dr. Get WhittenCreatinine [Mass/Vol]1.24 mg/dLNormal0.70-1.30The [facility] HospitalComment on above:Performed By: #### BNP, T7, CMP, TSH #### [facility] [address] [place] [address] Dr. Get Mcdowell-AF DOMINICAN>60Normal>=60The [facility] HospitalComment on above:Performed By: #### BNP, T7, CMP, TSH #### [facility] [address] [place] [address] Dr. Get Mcdowell-NON AF DOMINICAN=60Normal>=60The [facility] HospitalComment on above:Performed By: #### BNP, T7, CMP, TSH #### [facility] [address] [place] [address] Dr. Get WhittenGlobulin (S) [Mass/Vol]2.7 g/dLNormalThe [facility] HospitalComment on above:Performed By: #### BNP, T7, CMP, TSH #### [facility] [address] [place] [address] Dr. Get WhittenGlucose [Mass/Vol]107 mg/dLCritically pfix71-002Ako [facility] HospitalComment on above:Performed By: #### BNP, T7, CMP, TSH #### [facility] [address] [place] [address] Dr. Get WhittenPotassium [Moles/Vol]4.0 mmol/LNormal3.5-5.1The [facility] Comment on above:Performed By: #### BNP, T7, CMP, TSH #### [facility] [address] [place] [address] Dr. Get WhittenProtein [Mass/Vol]6.3 g/dLCritically low6.4-8.2The [facility] HospitalComment on above:Performed By: #### BNP, T7, CMP, TSH #### [facility] [address] [place] [address] Dr. Get WhittenSodium [Moles/Vol]129 mmol/LCritically sfa520-569Kqs [facility] HospitalComment on above:Performed By: #### BNP, T7, CMP, TSH #### [facility] [address] [place] [address] Dr. Get WhittenUrea nitrogen [Mass/Vol]12.0 mg/dLNormal7.0-18.0The [facility] HospitalComment on above:Performed By: #### BNP, T7, CMP, TSH #### [facility] [address] [place] [address] Dr. Get De Jesus nitrogen/Creatinine [Mass ratio]9.7 mg/mgNormalThe [facility] HospitalComment on above:Performed By: #### BNP, T7, CMP, TSH #### [facility] [address] [place] [address] Dr. Get Hidalgo 05-73-9987AVG70.327 uIU/mLCritically high0.358-3.740The [facility] HospitalCompaul [facility] on above:Performed By: #### BNP, T7, CMP, TSH #### [facility] [address] [place] [address] Dr. Get Dawson [id number] peptide B (Bld) [Mass/Vol]349.0 pg/mL Normal<=900.0[facility] on above:Performed By: #### BNP, T7, CMP, TSH #### [facility] [address] [place] [address] Dr. Get Meyer W MANUAL DIFFon [id number] LYMPH #0.26 103/ulNormal The [facility] HospitalComment on above:Performed By: #### CMP #### [facility] [address] [place] [address] Dr. Get Bhatia LYMPH %2 %NormalThe [place] HospitalComment on above: Performed By: #### CMP #### [facility] [address] [place] [address] Dr. Get Day #0.0 103/ulNormal0.0-0.3The [place] HospitalComment on above:Performed By: #### CMP #### [facility] [address] [place] [address] Dr. Get Day %0 %Normal0-5The [place] HospitalComment on above:Performed By: #### CMP #### [facility] [address] [place] [address] Dr. Get Aceves #0.00 103/ulNormal0.00-0.10The [facility] HospitalComment on above:Performed By: #### CMP #### [facility] [address] [place] [address] Dr. Get Aceves %0.0 %Critically low0.2-2.0The [facility] HospitalComment on above:Performed By: #### CMP #### [facility] [address] [place] [address] Dr. Get Wing #NormalCleveland Clinic Children'S Hospital For RehabilitationComment on above:Performed By: #### CMP #### [facility] [address] [place] [address] Dr. Get Wing %NormalOhiohealth Arthur G.[facility]. Bing, Md, Cancer Center HospitalComment on above:Performed By: #### CMP #### [facility] [address] [place] [address] Dr. Get CanalesRRECTED WBCNormal4.0-11.0The [place] HospitalComment on above: Performed By: #### CMP #### [facility] [address] [place] [address] Dr. Get Kendrick #0.00 103/ulNormal0.00-0.70The [facility] HospitalComment on above:Performed By: #### CMP #### [facility] [address] [address] [address] Get Kendrick%0.0 %Critically low0.9-7.0The [facility] HospitalComment on above:Performed By: #### CMP #### [facility] [address] [place] [address] Dr. Get MurciaT38.3 %Critically low42.0-54.0The [facility] HospitalComment on above:Performed By: #### CMP #### [facility] [address] [place] [address] Dr. Get WhittenHGB13.7 g/dlCritically low14.0-18.0The [facility] HospitalComment on above:Performed By: #### CMP #### [facility] [address] [place] [address] Dr. Get Villarreal #1.43 103/ulNormal1.20-3.80The [facility] HospitalComment on above:Performed By: #### CMP #### [facility] [address] [place] [address] Dr. Get Villarreal%11.0 %Critically low20.5-60.0The [facility] HospitalComment on above:Performed By: #### CMP #### [facility] [address] [place] [address] Dr. Gte FriedH36.3 pgCritically high25.9-34.0The [facility] HospitalComment on above:Performed By: #### CMP #### [facility] [address] [place] [address] Dr. Get FriedHC35.8 g/dlCritically high29.9-35.2The [facility] HospitalComment on above:Performed By: #### CMP #### [facility] [address] [place] [address] Dr. Get FriedV101.6 fLCritically high80.0-94.0The [facility] HospitalComment on above:Performed By: #### CMP #### [facility] [address] [place] [address] Dr. Get SalinasOCYTE #NormalCleveland Clinic Children'S Hospital For RehabilitationComment on above: Performed By: #### CMP #### [facility] [address] [address] [address] Get WeinbergAMYELOCYTE %NormalCleveland Clinic Children'S Hospital For RehabilitationComment on above: Performed By: #### CMP #### [facility] [address] [address] [address] Get Leyva#0.78 103/ulNormal0.30-0.80The [facility] HospitalComment on above:Performed By: #### CMP #### [facility] [address] [address] [address] Get Leyva%6.0 %Normal1.7-12.0The [facility] HospitalCompaul [facility] on above: Performed By: #### CMP #### [facility] [address] [address] [address] Get WhittenMPV8.7 fLCritically low9.5-13.5The [facility] HospitalComment on above:Performed By: #### CMP #### [facility] [address] [address] [address] Get CaryOCYTE #NormalWilson Health on above:Performed By: #### CMP #### [facility] [address] [place] [address] Dr. Get CaryOCYTE %NormalCleveland Clinic Children'S Hospital For RehabilitationCompaul [facility] on above:Performed By: #### CMP #### [facility] [address] [place] [address] Dr. Get WhittenNRBCNormalThe [facility] HospitalComment on above:Performed By: #### CMP #### [facility] [address] [address] [address] Get WhittenPLT225 103/coWthntv823-472Jfw [facility] HospitalCompaul [facility] on above: Performed By: #### CMP #### [facility] [address] [address] [address] Get WhittenRBC3.77 106/ulCritically low4.70-6.10The [facility] HospitalComment on above:Performed By: #### CMP #### [facility] [address] [address] [address] Get RamirezW12.7 %Jpscdd83.0-15.0The [facility] HospitalComment on above: Performed By: #### CMP #### [facility] [address] [address] [address] Get Kimble #10.53 103/ulCritically high1.40-6.50The [facility] Comment on above:Performed By: #### CMP #### [facility] [address] [place] [address] Dr. Get Kimble %81.0 %Critically high43.0-75.0The [facility] Centerment on above:Performed By: #### CMP #### [facility] [address] [place] [address] Dr. Get ShepherdBC13.0 103/ulCritically high4.0-11.0The [facility] Centerment on above:Performed By: #### CMP #### [facility] [address] [place] [address] Dr. Get Cintron [id number] [Mass/Vol]mg/LNormal<=1.0[facility] on above:Performed By: #### BNP, T7, CMP, TSH #### [facility] [address] [place] [address] Dr. Get Richards 14(COMP METB)on [id number] [Mass/Vol]3.3 g/dL Critically low3.4-5.0The [facility] Centerment on above:Performed By: #### BNP, T7, CMP, TSH #### [facility] [address] [place] [address] Dr. Get WhittenAlbumin/Globulin [Mass ratio]1.2 {ratio}NormalThe [facility] on above:Performed By: #### BNP, T7, CMP, TSH #### [facility] [address] [place] [address] Dr. Get Saba [Catalytic activity/Vol]48 U/FGmfeyi02-839Ijm [facility] HospitalComment on above:Performed By: #### BNP, T7, CMP, TSH #### [facility] [address] [place] [address] Dr. Get Pichardo [Catalytic activity/Vol]130 U/LCritically ubla74-97Exy [facility] HospitalComment on above:Performed By: #### BNP, T7, CMP, TSH #### [facility] [address] [place] [address] Dr. Get Torrezon gap [Moles/Vol]11.9 mmol/LNormalThe [facility] Comment on above:Performed By: #### BNP, T7, CMP, TSH #### [facility] [address] [place] [address] Dr. Get WhittenAST [Catalytic activity/Vol]50 U/LCritically pzpe67-19Ncm [facility] HospitalComment on above:Performed By: #### BNP, T7, CMP, TSH #### [facility] [address] [place] [address] Dr. Get WhittenBilirubin [Mass/Vol]0.5 mg/dLNormal0.2-1.0[facility] Comment on above:Performed By: #### BNP, T7, CMP, TSH #### [facility] [address] [place] [address] Dr. Get WhittenCalcium [Mass/Vol]7.9 mg/dLCritically low8.5-10.1The [facility] HospitalComment on above:Performed By: #### BNP, T7, CMP, TSH #### [facility] [address] [place] [address] Dr. Get WhittenChloride [Moles/Vol]99 mmol/TTgjlip41-683Vna [facility] Comment on above:Performed By: #### BNP, T7, CMP, TSH #### [facility] [address] [place] [address] Dr. Get WhittenCO2 [Moles/Vol]18.4 mmol/LCritically low21.0-32.0The [facility] HospitalComment on above:Performed By: #### BNP, T7, CMP, TSH #### [facility] [address] [place] [address] Dr. Get WhittenCreatinine [Mass/Vol]0.96 mg/dLNormal0.70-1.30The [facility] Centerment on above:Performed By: #### BNP, T7, CMP, TSH #### [facility] [address] [place] [address] Dr. Get PaytonGFR-AF DOMINICAN>60Normal>=60The [facility] HospitalComment on above:Performed By: #### BNP, T7, CMP, TSH #### [facility] [address] [place] [address] Dr. Get PaytonGFR-NON AF DOMINICAN>60Normal>=60The [facility] HospitalComment on above:Performed By: #### BNP, T7, CMP, TSH #### [facility] [address] [place] [address] Dr. Get WhittenGlobulin (S) [Mass/Vol]2.8 g/dLNormalThe [facility] HospitalComment on above:Performed By: #### BNP, T7, CMP, TSH #### [facility] [address] [place] [address] Dr. Get WhittenGlucose [Mass/Vol]166 mg/dLCritically xhjy50-142Xvc [facility] on above:Performed By: #### BNP, T7, CMP, TSH #### [facility] [address] [place] [address] Dr. Get WhittenPotassium [Moles/Vol]3.3 mmol/LCritically low3.5-5.1The [facility] Centerment on above:Performed By: #### BNP, T7, CMP, TSH #### [facility] [address] [place] [address] Dr. Get WhittenProtein [Mass/Vol]6.1 g/dLCritically low6.4-8.2The [facility] HospitalComment on above:Performed By: #### BNP, T7, CMP, TSH #### [facility] [address] [place] [address] Dr. Get Garzaum [Moles/Vol]126 mmol/LCritically jmu558-011Gbr [facility] HospitalComment on above:Performed By: #### BNP, T7, CMP, TSH #### [facility] [address] [place] [address] Dr. Get De Jesus nitrogen [Mass/Vol]8.0 mg/dLNormal7.0-18.0The [facility] HospitalComment on above:Performed By: #### BNP, T7, CMP, TSH #### [facility] [address] [place] [address] Dr. Get De Jesus nitrogen/Creatinine [Mass ratio]8.3 mg/mgNormalThe [facility] HospitalComment on above:Performed By: #### BNP, T7, CMP, TSH #### [facility] [address] [place] [address] Dr. eGt Dawson [id number] peptide B (Bld) [Mass/Vol]274.0 pg/mL Normal<=900.0The [facility] HospitalComment on above:Performed By: #### CMP, HSTROPN, BNP #### [facility] [address] [place] [address] Dr. Get Crockett ANA 3-6on 83-49-0785DD [Catalytic activity/Vol]48 U/L Avmffr11-556Ccj [facility] HospitalComment on above:Performed By: #### BNP, T7, CMP, TSH #### [facility] [address] [place] [address] Dr. Get Melara.MB [Mass/Vol]1.62 ng/mLNormal<=3.60The [facility] Comment on above:Performed By: #### BNP, T7, CMP, TSH #### [facility] [address] [place] [address] Dr. Get AndersonOP15.7 pg/mLNormal4.0-76.1The [facility] HospitalComment on above:Result Comment: CUT-OFF POINTS HAVE BEEN ESTABLISHED BASED ON THE FOURTH UNIVERSAL DEFINITIONS OF MYOCARDIAL INFARCTION. THE UPPER REFERENCE LIMIT (URL) OF TROPONIN, DEFINED THE 99TH PERCENTILE OF cTnI DISTRIBUTION IN A REFERENCE POPULATION, HAS BEEN CONFIRMED THE DECISION THRESHOLD FOR CA DIAGNOSIS.Performed By: #### BNP, T7, CMP, TSH #### [facility] [address] [place] [address] Dr. Get Meyer AUTO DIFFon [id number] #0.1 103/ulNormal0.0-0.1The [facility] HospitalComment on above:Performed By: #### CMP #### [facility] [address] [place] [address] Dr. Get WhittenBasophils/100 WBC (Bld)0.8 %Normal0.2-2.0[facility] Comment on above:Performed By: #### CMP #### [facility] [address] [place] [address] Dr. Get Babcock #0.6 103/ulNormal0.0-0.7The [facility] HospitalComment on above: Performed By: #### CMP #### [facility] [address] [place] [address] Dr. Get Paytonosinophils/100 WBC (Bld)5.2 %Normal0.9-7.0[facility] Comment on above:Performed By: #### CMP #### [facility] [address] [place] [address] Dr. Get Paytonrythrocyte distribution width (RBC) [Ratio]12.7 %Bpanqn41.0-15.0 [facility] For RehabilitationComment on above:Performed By: #### CMP #### [facility] [address] [place] [address] Dr. Get WhittenHematocrit (Bld) [Volume fraction]41.7 %Critically low42.0-54.0 The [facility] HospitalComment on above:Performed By: #### CMP #### [facility] [address] [place] [address] Dr. Get WhittenHemoglobin (Bld) [Mass/Vol]14.9 g/jGIkvnfc96.0-18.0The [facility] HospitalComment on above:Performed By: #### CMP #### [facility] [address] [address] [address] Get Sanford #0.48 10e3/ulCritically high0.00-0.03The [facility] Comment on above:Performed By: #### CMP #### [facility] [address] [address] [address] Get Sanford %4.1 %Critically high0.0-0.5The [facility] HospitalComment on above:Performed By: #### CMP #### [facility] [address] [address] [address] Get Otoole #1.4 103/ulNormal1.2-3.8The [facility] HospitalComment on above:Performed By: #### CMP #### [facility] [address] [place] [address] Dr. Get Ramirezhocytes/100 WBC (Bld)11.9 %Critically low20.5-60.0The [facility] HospitalComment on above:Performed By: #### CMP #### [facility] [address] [place] [address] Dr. Get HeadUAL DIFF REQNONormalThe [facility] HospitalComment on above: Performed By: #### CMP #### [facility] [address] [place] [address] Dr. Get Fried (RBC) [Entitic mass]36.8 pgCritically high25.9-34.0The [facility] HospitalComment on above:Performed By: #### CMP #### [facility] [address] [place] [address] Dr. Get Fried (RBC) [Mass/Vol]35.7 g/dLCritically high29.9-35.2The [facility] HospitalComment on above:Performed By: #### CMP #### [facility] [address] [place] [address] Dr. Get Fried (RBC) [Entitic vol]103.0 fLCritically high80.0-94.0The [facility] HospitalComment on above:Performed By: #### CMP #### [facility] [address] [address] [address] Get Bill #0.5 103/ulNormal0.3-0.8The [facility] HospitalComment on above:Performed By: #### CMP #### [facility] [address] [place] [address] Dr. Get Lockettocytes/100 WBC (Bld)4.3 %Normal1.7-12.0[facility] Comment on above:Performed By: #### CMP #### [facility] [address] [place] [address] Dr. Get Falcon #8.6 103/ulCritically high1.4-6.5The [facility] Comment on above:Performed By: #### CMP #### [facility] [address] [place] [address] Dr. Get Andersonutrophils/100 WBC (Bld)73.7 %Fqttwl04.0-75.0The [facility] HospitalComment on above:Performed By: #### CMP #### [facility] [address] [place] [address] Dr. Get Castro mean volume (Bld) [Entitic vol]9.0 fLCritically low 9.5-13.5The [facility] HospitalComment on above:Performed By: #### CMP #### [facility] [address] [place] [address] Dr. Get WhittenPLT244 103/mdDsosnv399-609Umq [facility] HospitalComment on above: Performed By: #### CMP #### [facility] [address] [place] [address] Dr. Get WhittenRBC4.05 106/ulCritically low4.70-6.10The [facility] HospitalComment on above:Performed By: #### CMP #### [facility] [address] [place] [address] Dr. Get WhittenWBC11.7 103/ulCritically high4.0-11.0The [facility] HospitalComment on above:Performed By: #### CMP #### [facility] [address] [address] [address] Get WhittenCRJuvencio 22-85-8338QVM3.3 mg/dLNormal<=1.0The [facility] Comment on above:Performed By: #### CMP, HSTROPN, BNP #### [facility] [address] [place] [address] Dr. Get WhittenCULTURE SPUTUMon 57-82-2197QINAABQ SPUTUMCulture Observations: METHICILLIN RESISTANT STAPH AUREUS ISOLATED. [...] <=10 S F Oxacillin >=4 R FNormalThe [facility] HospitalComment on above:Performed By: #### BNP, T7, CMP, TSH #### [facility] [address] [place] [address] Dr. Get PaytonPROTESTANT [facility] LIMITED STUDYon [id number] LIMITED STUDYPatient: REHAN TREJOBrennan Exam Date: 03/30/2022 : 1965 Gender:M Ordering : DR PEE LAKHANI . Admission #: [id number] Family : Order #: [id number] CLICK HERE TO VIEW EXAM ECHOCARDIOGRAM REPORT [...] by: Arik Dominguez M.D. on 03/31/2022 at 19:42[facility] CenterPROF 14(COMP METB)on [id number] [Mass/Vol]3.5 g/dLNormal3.4-5.0 The [facility] HospitalComment on above:Performed By: #### CMP, HSTROPN, BNP #### [facility] [address] [address] [address] Get WhittenAlbumin/Globulin [Mass ratio]1.2 {ratio}NormalThe [facility] HospitalComment on above:Performed By: #### CMP, HSTROPN, BNP #### [facility] [address] [place], [place] [address] Dr. Get MartinezP [Catalytic activity/Vol]58 U/UWlibpb28-835Nrx [facility] HospitalComment on above:Performed By: #### CMP, HSTROPN, BNP #### [facility] [address] [address] [address] Get Pichardo [Catalytic activity/Vol]108 U/LCritically ooeg98-27Nih [facility] HospitalComment on above:Performed By: #### CMP, HSTROPN, BNP #### [facility] [address] [place] [address] Dr. Get Crow gap [Moles/Vol]12.6 mmol/LNormalThe [facility] Comment on above:Performed By: #### CMP, HSTROPN, BNP #### [facility] [address] [place] [address] Dr. Get Fierro [Catalytic activity/Vol]33 U/TPdwxjs21-29Zze [facility] HospitalComment on above:Performed By: #### CMP, HSTROPN, BNP #### [facility] [address] [place] [address] Dr. Get WhittenBilirubin [Mass/Vol]0.6 mg/dLNormal0.2-1.0[facility] Comment on above:Performed By: #### CMP, HSTROPN, BNP #### [facility] [address] [place] [address] Dr. Get WhittenCalcium [Mass/Vol]8.0 mg/dLCritically low8.5-10.1[facility] RehabilitationComment on above:Performed By: #### CMP, HSTROPN, BNP #### [facility] [address] [place] [address] Dr. Get WhittenChloride [Moles/Vol]99 mmol/MFajljf71-992Ren [facility] Comment on above:Performed By: #### CMP, HSTROPN, BNP #### [facility] [address] [place] [address] Dr. Get WhittenCO2 [Moles/Vol]22.0 mmol/FHdyndw40.0-32.0[facility] Comment on above:Performed By: #### CMP, HSTROPN, BNP #### [facility] [address] [address] [address] Get WhittenCreatinine [Mass/Vol]1.12 mg/dLNormal0.70-1.30The [facility] HospitalComment on above:Performed By: #### CMP, HSTROPN, BNP #### [facility] [address] [place] [address] Dr. Get PaytonGFR-AF DOMINICAN>60Normal>=60The [facility] HospitalComment on above:Performed By: #### CMP, HSTROPN, BNP #### [facility] [address] [place] [address] Dr. Get PaytonGFR-NON AF DOMINICAN>60Normal>=60The [facility] HospitalComment on above:Performed By: #### CMP, HSTROPN, BNP #### [facility] [address] [place] [address] Dr. Get WhittenGlobulin (S) [Mass/Vol]3.0 g/dLNormalThe [facility] HospitalComment on above:Performed By: #### CMP, HSTROPN, BNP #### [facility] [address] [place] [address] Dr. Get WhittenGlucose [Mass/Vol]135 mg/dLCritically cwhv31-335Wsv [facility] Centerment on above:Performed By: #### CMP, HSTROPN, BNP #### [facility] [address] [place] [address] Dr. Get WhittenPotassium [Moles/Vol]3.6 mmol/LNormal3.5-5.1The [facility] Comment on above:Performed By: #### CMP, HSTROPN, BNP #### [facility] [address] [place] [address] Dr. Get WhittenProtein [Mass/Vol]6.5 g/dLNormal6.4-8.2The [facility] Comment on above:Performed By: #### CMP, HSTROPN, BNP #### [facility] [address] [place] [address] Dr. Get Garzaum [Moles/Vol]130 mmol/LCritically imh698-689Stm [facility] HospitalComment on above:Performed By: #### CMP, HSTROPN, BNP #### [facility] [address] [place] [address] Dr. Get De Jesus nitrogen [Mass/Vol]7.0 mg/dLNormal7.0-18.0The [facility] HospitalComment on above:Performed By: #### CMP, HSTROPN, BNP #### [facility] [address] [place] [address] Dr. Get De Jesus nitrogen/Creatinine [Mass ratio]6.2 mg/mgNormalThe [facility] HospitalComment on above:Performed By: #### CMP, HSTROPN, BNP #### [facility] [address] [place] [address] Dr. Get PEREZ 3-6on 47-05-6214ZN [Catalytic activity/Vol]51 U/L Egkyvg22-246Iqh [facility] HospitalComment on above:Performed By: #### CVDTBH #### [facility] [address] [place] [address] Dr. Get Melara.MB [Mass/Vol]1.89 ng/mLNormal<=3.60The [facility] Comment on above:Performed By: #### CVDTBH #### [facility] [address] [place] [address] Dr. Get WhittenHSTROP14.4 pg/mLNormal4.0-76.1The [facility] HospitalComment on above:Result Comment: CUT-OFF POINTS HAVE BEEN ESTABLISHED BASED ON THE FOURTH UNIVERSAL DEFINITIONS OF MYOCARDIAL INFARCTION. THE UPPER REFERENCE LIMIT (URL) OF TROPONIN, DEFINED THE 99TH PERCENTILE OF cTnI DISTRIBUTION IN A REFERENCE POPULATION, HAS BEEN CONFIRMED THE DECISION THRESHOLD FOR CA DIAGNOSIS.Performed By: #### CVDTBH #### [facility] [address] [place] [address] Dr. Get PEREZ ADMITon [id number] [Catalytic activity/Vol]128 U/L Mnrutx75-885Nbj [facility] HospitalComment on above:Performed By: #### CMP, HSTROPN, BNP #### [facility] [address] [place] [address] Dr. Get Melara.MB [Mass/Vol]2.22 ng/mLNormal<=3.60[facility] Comment on above:Performed By: #### CMP, HSTROPN, BNP #### [facility] [address] [place] [address] Dr. Get WhittenHSTROP11.2 pg/mLNormal4.0-76.1[facility] on above:Result Comment: CUT-OFF POINTS HAVE BEEN ESTABLISHED BASED ON THE FOURTH UNIVERSAL DEFINITIONS OF MYOCARDIAL INFARCTION. THE UPPER REFERENCE LIMIT (URL) OF TROPONIN, DEFINED THE 99TH PERCENTILE OF cTnI DISTRIBUTION IN A REFERENCE POPULATION, HAS BEEN CONFIRMED THE DECISION THRESHOLD FOR CA DIAGNOSIS.Performed By: #### CMP, HSTROPN, BNP #### [facility] [address] [place] [address] Dr. Get SinghO40 ng/iLOfzjix43-37KojWilson Health on above: Performed By: #### CMP, HSTROPN, BNP #### [facility] [address] [place] [address] Dr. Get Meyer AUTO DIFFon [id number] #0.1 103/ulNormal0.0-0.1[facility] on above:Performed By: #### OSMOU #### [facility] [address] [place] [address] Dr. Get WhittenBasophils/100 WBC (Bld)0.4 %Normal0.2-2.0[facility] Comment on above:Performed By: #### OSMOU #### [facility] [address] [place] [address] Dr. Get Babcock #0.0 103/ulNormal0.0-0.7[facility] on above: Performed By: #### OSMOU #### [facility] [address] [place] [address] Dr. Get Paytonosinophils/100 WBC (Bld)0.1 %Critically low0.9-7.0The [facility]ment on above:Performed By: #### OSMOU #### [facility] [address] [place] [address] Dr. Get Paytonrythrocyte distribution width (RBC) [Ratio]12.8 %Pvsvju15.0-15.0 The [facility] HospitalComment on above:Performed By: #### OSMOU #### [facility] [address] [place] [address] Dr. Get WhittenHematocrit (Bld) [Volume fraction]42.1 %Htsqxk37.0-54.0The [facility] HospitalComment on above:Performed By: #### OSMOU #### [facility] [address] [place] [address] Dr. Get WhittenHemoglobin (Bld) [Mass/Vol]15.3 g/eAUwwwpy45.0-18.0The [facility] HospitalComment on above:Performed By: #### OSMOU #### [facility] [address] [place] [address] Dr. Get Sanford #0.49 10e3/ulCritically high0.00-0.03The [facility] Comment on above:Performed By: #### OSMOU #### [facility] [address] [place] [address] Dr. Get Sanford %3.6 %Critically high0.0-0.5The [facility] HospitalComment on above:Performed By: #### OSMOU #### [facility] [address] [place] [address] Dr. Get HargroveMPH #2.2 103/ulNormal1.2-3.8The [facility] HospitalComment on above:Performed By: #### OSMOU #### [facility] [address] [place] [address] Dr. Get Hargrovemphocytes/100 WBC (Bld)16.1 %Critically low20.5-60.0The [facility] HospitalComment on above:Performed By: #### OSMOU #### [facility] [address] [place] [address] Dr. Get Ace DIFF REQNONormalThe [facility] HospitalComment on above: Performed By: #### OSMOU #### [facility] [address] [place] [address] Dr. Get Fried (RBC) [Entitic mass]36.3 pgCritically high25.9-34.0The [facility] HospitalComment on above:Performed By: #### OSMOU #### [facility] [address] [place] [address] Dr. Get Fried (RBC) [Mass/Vol]36.3 g/dLCritically high29.9-35.2The [facility] HospitalComment on above:Performed By: #### OSMOU #### [facility] [address] [place] [address] Dr. Get Fried (RBC) [Entitic vol]100.0 fLCritically high80.0-94.0[facility] RehabilitationComment on above:Performed By: #### OSMOU #### [facility] [address] [place] [address] Dr. Get Bill #1.1 103/ulCritically high0.3-0.8Th[facility] Comment on above:Performed By: #### OSMOU #### [facility] [address] [place] [address] Dr. Get Lockettocytes/100 WBC (Bld)8.3 %Normal1.7-12.0[facility] Comment on above:Performed By: #### OSMOU #### [facility] [address] [place] [address] Dr. Get Falcon #9.6 103/ulCritically high1.4-6.5ThSal[facility] City [facility] Comment on above:Performed By: #### OSMOU #### [facility] [address] [place] [address] Dr. Get Andersonutrophils/100 WBC (Bld)71.5 %Hoxhpf21.0-75.0The [facility] HospitalComment on above:Performed By: #### OSMOU #### [facility] [address] [address] [address] Get WhittenPlatelet mean volume (Bld) [Entitic vol]9.1 fLCritically low 9.5-13.5The [facility] HospitalComment on above:Performed By: #### OSMOU #### [facility] [address] [address] [address] Get WhittenPLT228 103/azAipcug295-588Hrn [facility] HospitalComment on above: Performed By: #### OSMOU #### [facility] [address] [place] [address] Dr. Get WhittenRBC4.21 106/ulCritically low4.70-6.10[facility] on above:Performed By: #### OSMOU #### [facility] [address] [place] [address] Dr. Get WhittenWBC13.4 103/ulCritically high4.0-11.0The [facility] Centerment on above:Performed By: #### OSMOU #### [facility] [address] [place] [address] Dr. Get WhittenCovibaljeet-19 PCR (CVDTB)on 54-36-2174ODSJ-CoV-2 (COVID-19) RNA ASHLEE+probe Ql (Unsp spec)DetectedCritically abnormalNOT DETECTEDThe [facility] on above:Result Comment: This test is not yet approved or cleared by the [place] FDA. When there are no FDA-approved or cleared tests available, and other criteria are met, FDA can make tests available under an emergency access mechanism called an Emergency Use Authorization (EUA). The EUA for this test is supported by the [place] of Health and Human Service's declaration that [...] longer be used).Performed By: #### CVDTBH #### [facility] [address] [address] [address] Get WhittenOSMOLALITYon 86-54-5321Xicxkieiuq [Osmolality]257 mosm/kg Critically qit624-472LcrCleveland Clinic Children'S Hospital For RehabilitationComment on above:Performed By: #### CVDTBH #### [facility] [address] [address] [address] Get WhittenOSMOLALITY URINEon 15-70-5873Ohrtvhxmld, Rgpjg178 mOsmol/kgNormal The [facility] HospitalComment on above:Result Comment: 24 hr : 300 - 900 Random: 50 - 1400 After 12hr fluid restriction: >850Performed By: #### OSMOU #### [facility] [address] [place] [address] Dr. Get WhittenPROF CHEM 8 (BAS METB)on 83-72-1004Kullq gap [Moles/Vol]17.1 mmol/LNormalThe [facility] HospitalComment on above:Performed By: #### CMP, HSTROPN, BNP #### [facility] [address] [place] [address] Dr. Get WhittenCalcium [Mass/Vol]8.4 mg/dLCritically low8.5-10.1The [facility] HospitalComment on above:Performed By: #### CMP, HSTROPN, BNP #### [facility] [address] [place] [address] Dr. Get WhittenChloride [Moles/Vol]98 mmol/WIycrrl23-180Szy [facility] Comment on above:Performed By: #### CMP, HSTROPN, BNP #### [facility] [address] [place] [address] Dr. Get WhittenCO2 [Moles/Vol]18.1 mmol/LCritically low21.0-32.0The [facility] HospitalComment on above:Performed By: #### CMP, HSTROPN, BNP #### [facility] [address] [place] [address] Dr. Get WhittenCreatinine [Mass/Vol]0.98 mg/dLNormal0.70-1.30The [facility] HospitalComment on above:Performed By: #### CMP, HSTROPN, BNP #### [facility] [address] [address] [address] Get PaytonGFR-AF DOMINICAN>60Normal>=60The [facility] HospitalComment on above:Performed By: #### CMP, HSTROPN, BNP #### [facility] [address] [address] [address] Get PaytonGFR-NON AF DOMINICAN>60Normal>=60The [facility] HospitalComment on above:Performed By: #### CMP, HSTROPN, BNP #### [facility] [address] [place] [address] Dr. Get WhittenGlucose [Mass/Vol]94 mg/kNIxwjvw23-165Yas [facility] Comment on above:Performed By: #### CMP, HSTROPN, BNP #### [facility] [address] [place] [address] Dr. Get WhittenPotassium [Moles/Vol]4.2 mmol/LNormal3.5-5.1The [facility] Comment on above:Performed By: #### CMP, HSTROPN, BNP #### [facility] [address] [place] [address] Dr. Get WhittenSodium [Moles/Vol]129 mmol/LCritically jqe322-032Tzr [facility] HospitalComment on above:Performed By: #### CMP, HSTROPN, BNP #### [facility] [address] [place] [address] Dr. Get WhittenUrea nitrogen [Mass/Vol]8.0 mg/dLNormal7.0-18.0The [facility] HospitalComment on above:Performed By: #### CMP, HSTROPN, BNP #### [facility] [address] [place] [address] Dr. Get WhittenUrea nitrogen/Creatinine [Mass ratio]8.2 mg/mgNormalThe [facility] HospitalComment on above:Performed By: #### CMP, HSTROPN, BNP #### [facility] [address] [place] [address] Dr. Get Morgan CHEST 1 Von [id number] CHEST 1 VEXAM: XR CHEST 1 V [...] Electronically authenticated by: GARETH ROMERO Date: 2022-03-29 18:30[facility] 25-53-5775Krydmslxhlv peptide B (Bld) [Mass/Vol]401.0 pg/mLNormal<=900.0The [facility] HospitalComment on above:Performed By: #### BNP, T7, CMP, TSH #### [facility] [address] [place] [address] Dr. Get Meyer W MANUAL DIFFon 60-41-6566FJKVMVPM LYMPH #NormalThe [facility] HospitalComment on above:Performed By: #### BNP, T7, CMP, TSH #### [facility] [address] [place] [address] Dr. Get WhittenATYPICAL LYMPH %NormalThe [facility] HospitalComment on above: Performed By: #### BNP, T7, CMP, TSH #### [facility] [address] [place] [address] Dr. Get Day #0.3 103/ulNormal0.0-0.3The [facility] HospitalComment on above:Performed By: #### BNP, T7, CMP, TSH #### [facility] [address] [place] [address] Dr. Get Day %2 %Normal0-5The [facility] HospitalComment on above:Performed By: #### BNP, T7, CMP, TSH #### [facility] [address] [place] [address] Dr. Yilan ChangBASOM #0.00 103/ulNormal0.00-0.10The [facility] HospitalComment on above:Performed By: #### BNP, T7, CMP, TSH #### [facility] [address] [place] [address] Dr. Get Aceves %0.0 %Critically low0.2-2.0The [facility] HospitalComment on above:Performed By: #### BNP, T7, CMP, TSH #### [facility] [address] [place] [address] Dr. Get iWng #NormalCleveland Clinic Children'S Hospital For RehabilitationComment on above:Performed By: #### BNP, T7, CMP, TSH #### [facility] [address] [place] [address] Dr. Get Wing %NormalThe [facility] HospitalComment on above:Performed By: #### BNP, T7, CMP, TSH #### [facility] [address] [place] [address] Dr. Get WhittenCORRECTED WBCNormal4.0-11.0The [facility] HospitalComment on above: Performed By: #### BNP, T7, CMP, TSH #### [facility] [address] [place] [address] Dr. Get Kendrick #0.00 103/ulNormal0.00-0.70The [facility] HospitalCompaul [facility] on above:Performed By: #### BNP, T7, CMP, TSH #### [facility] [address] [place] [address] Dr. Get Kendrick%0.0 %Critically low0.9-7.0The [facility] HospitalComment on above:Performed By: #### BNP, T7, CMP, TSH #### [facility] [address] [place] [address] Dr. Get WhittenHCT36.3 %Critically low42.0-54.0The [facility] HospitalComment on above:Performed By: #### BNP, T7, CMP, TSH #### [facility] [address] [place] [address] Dr. Get WhittenHGB12.9 g/dlCritically low14.0-18.0The [facility] HospitalComment on above:Performed By: #### BNP, T7, CMP, TSH #### [facility] [address] [place] [address] Dr. Get Gabriel [facility] - ColumbusComment on above: Performed By: #### BNP, T7, CMP, TSH #### [facility] [address] [place] [address] Dr. Get Villarreal #0.89 103/ulCritically low1.20-3.80The [facility] Comment on above:Performed By: #### BNP, T7, CMP, TSH #### [facility] [address] [place] [address] Dr. Get Villarreal%7.0 %Critically low20.5-60.0The [facility] HospitalComment on above:Performed By: #### BNP, T7, CMP, TSH #### [facility] [address] [place] [address] Dr. Get rFiedH36.5 pgCritically high25.9-34.0The [facility] HospitalComment on above:Performed By: #### BNP, T7, CMP, TSH #### [facility] [address] [place] [address] Dr. Get FriedHC35.5 g/dlCritically high29.9-35.2The [facility] HospitalComment on above:Performed By: #### BNP, T7, CMP, TSH #### [facility] [address] [place] [address] Dr. Get FriedV102.8 fLCritically high80.0-94.0The [facility] HospitalComment on above:Performed By: #### BNP, T7, CMP, TSH #### [facility] [address] [place] [address] Dr. Get Heredia #NormalThe [facility] HospitalComment on above: Performed By: #### BNP, T7, CMP, TSH #### [facility] [address] [place] [address] Dr. Get Heredia %NormalCleveland Clinic Children'S Hospital For RehabilitationComment on above: Performed By: #### BNP, T7, CMP, TSH #### [facility] [address] [place] [address] Dr. Get Leyva#1.02 103/ulCritically high0.30-0.80The [facility] on above:Performed By: #### BNP, T7, CMP, TSH #### [facility] [address] [place] [address] Dr. Get Leyva%8.0 %Normal1.7-12.0The [facility] HospitalComment on above: Performed By: #### BNP, T7, CMP, TSH #### [facility] [address] [place] [address] Dr. Get RivasV9.1 fLCritically low9.5-13.5The [facility] HospitalComment on above:Performed By: #### BNP, T7, CMP, TSH #### [facility] [address] [place] [address] Dr. Get Kasper #NormalCleveland Clinic Children'S Hospital For RehabilitationComment on above:Performed By: #### BNP, T7, CMP, TSH #### [facility] [address] [place] [address] Dr. Get CaryOCYTE %NormalThe [facility] HospitalComment on above:Performed By: #### BNP, T7, CMP, TSH #### [facility] [address] [place] [address] Dr. Get ConnBCNormalThe [facility] HospitalComment on above:Performed By: #### BNP, T7, CMP, TSH #### [facility] [address] [place] [address] Dr. Get WhittenPLT181 103/pyModbmc472-458Zox [facility] on above: Performed By: #### BNP, T7, CMP, TSH #### [facility] [address] [place] [address] Dr. Get WhittenRBC3.53 106/ulCritically low4.70-6.10The [facility] HospitalComment on above:Performed By: #### BNP, T7, CMP, TSH #### [facility] [address] [address] [address] Get De Guzman12.7 %Yyrvfk65.0-15.0The [facility] HospitalComment on above: Performed By: #### BNP, T7, CMP, TSH #### [facility] [address] [place] [address] Dr. Get Kimble #10.54 103/ulCritically high1.40-6.50The [facility] Comment on above:Performed By: #### BNP, T7, CMP, TSH #### [facility] [address] [place] [address] Dr. Get Kimble %83.0 %Critically high43.0-75.0The [facility] Centerment on above:Performed By: #### BNP, T7, CMP, TSH #### [facility] [address] [place] [address] Dr. Get ShepherdBC12.7 103/ulCritically high4.0-11.0The [facility] Centerment on above:Performed By: #### BNP, T7, CMP, TSH #### [facility] [address] [place] [address] Dr. Get Richards 14(COMP METB)on 73-88-9915Dhlimwk [Mass/Vol]3.0 g/dL Critically low3.4-5.0The [facility] Centerment on above:Performed By: #### BNP, T7, CMP, TSH #### [facility] [address] [place] [address] Dr. Get WhittenAlbumin/Globulin [Mass ratio]1.2 {ratio}NormalThe [facility] on above:Performed By: #### BNP, T7, CMP, TSH #### [facility] [address] [place] [address] Dr. Get Saba [Catalytic activity/Vol]39 U/LCritically qty08-332Ljd [facility] Centerment on above:Performed By: #### BNP, T7, CMP, TSH #### [facility] [address] [address] [address] Get MartinezT [Catalytic activity/Vol]94 U/LCritically nsdh93-20Ukc [facility] HospitalComment on above:Performed By: #### BNP, T7, CMP, TSH #### [facility] [address] [address] [address] Get Torrezon gap [Moles/Vol]11.4 mmol/LNormalThe [facility] Comment on above:Performed By: #### BNP, T7, CMP, TSH #### [facility] [address] [address] [address] Get WhittenAST [Catalytic activity/Vol]37 U/JHyieav70-70Vsy [facility] HospitalComment on above:Performed By: #### BNP, T7, CMP, TSH #### [facility] [address] [address] [address] Get WhittenBilirubin [Mass/Vol]0.4 mg/dLNormal0.2-1.0The [facility] Comment on above:Performed By: #### BNP, T7, CMP, TSH #### [facility] [address] [address] [address] Get WhittenCalcium [Mass/Vol]7.9 mg/dLCritically low8.5-10.1[facility] For RehabilitationComment on above:Performed By: #### BNP, T7, CMP, TSH #### [facility] [address] [address] [address] Get WhittenChloride [Moles/Vol]102 mmol/EZrrwof38-549Eko [facility] Comment on above:Performed By: #### BNP, T7, CMP, TSH #### [facility] [address] [address] [address] Get WhittenCO2 [Moles/Vol]21.0 mmol/SYexszu76.0-32.0The [facility] Comment on above:Performed By: #### BNP, T7, CMP, TSH #### [facility] [address] [address] [address] Get WhittenCreatinine [Mass/Vol]1.07 mg/dLNormal0.70-1.30The [facility] HospitalComment on above:Performed By: #### BNP, T7, CMP, TSH #### [facility] [address] [place] [address] Dr. Get PaytonGFR-AF DOMINICAN>86Normal>=60The [facility] HospitalComment on above:Performed By: #### BNP, T7, CMP, TSH #### [facility] [address] [place] [address] Dr. Get PaytonGFR-NON AF DOMINICAN>60Normal>=60The [facility] HospitalComment on above:Performed By: #### BNP, T7, CMP, TSH #### [facility] [address] [place] [address] Dr. Get WhittenGlobulin (S) [Mass/Vol]2.6 g/dLNormalThe [facility] HospitalComment on above:Performed By: #### BNP, T7, CMP, TSH #### [facility] [address] [place] [address] Dr. Get WhittenGlucose [Mass/Vol]132 mg/dLCritically edpp80-250Yez [facility] HospitalComment on above:Performed By: #### BNP, T7, CMP, TSH #### [facility] [address] [place] [address] Dr. Get WhittenPotassium [Moles/Vol]3.4 mmol/LCritically low3.5-5.1The [facility] HospitalComment on above:Performed By: #### BNP, T7, CMP, TSH #### [facility] [address] [place] [address] Dr. Get WhittenProtein [Mass/Vol]5.6 g/dLCritically low6.4-8.2The [facility] HospitalComment on above:Performed By: #### BNP, T7, CMP, TSH #### [facility] [address] [place] [address] Dr. Gte WhittenSodium [Moles/Vol]131 mmol/LCritically cvg050-965Pdg [facility] HospitalComment on above:Performed By: #### BNP, T7, CMP, TSH #### [facility] [address] [place] [address] Dr. Get De Jesus nitrogen [Mass/Vol]16.0 mg/dLNormal7.0-18.0The [facility] on above:Performed By: #### BNP, T7, CMP, TSH #### [facility] [address] [place] [address] Dr. Get De Jesus nitrogen/Creatinine [Mass ratio]15.0 mg/mgNormalThe [facility] HospitalComment on above:Performed By: #### BNP, T7, CMP, TSH #### [facility] [address] [place] [address] Dr. Get WhittenT3, TOTAL (TRIIODOTHYRONINE)on 80-16-7863V0, TOTAL<20Critically yji99-029Hgo [facility] Centerment on above:Performed By: #### CMP, HSTROPN, BNP #### [facility] [address] [place] [address] Dr. Get WhittenT4 LABCORPon 11-21-5729P8 [Mass/Vol]0.7 ug/dLInvalid Interpretation Code4.5-12.0[facility] on above:Performed By: #### CVDTBH #### [facility] [address] [place] [address] Dr. Get Dawson 66-20-5834Fczzjpbyuqj peptide B (Bld) [Mass/Vol]340.0 pg/mL Normal<=900.0The [facility] on above:Performed By: #### BNP, T7, CMP, TSH #### [facility] [address] [place] [address] Dr. Get Meyer AUTO DIFFon [id number] #0.0 103/ulNormal0.0-0.1The [facility] on above:Performed By: #### CMP, HSTROPN, BNP #### [facility] [address] [place] [address] Dr. Get WhittenBasophils/100 WBC (Bld)0.1 %Critically low0.2-2.0The [facility] HospitalComment on above:Performed By: #### CMP, HSTROPN, BNP #### [facility] [address] [place] [address] Dr. Get Babcock #0.0 103/ulNormal0.0-0.7The [facility] HospitalComment on above: Performed By: #### CMP, HSTROPN, BNP #### [facility] [address] [place] [address] Dr. Get Paytonosinophils/100 WBC (Bld)0.1 %Critically low0.9-7.0The [facility] HospitalComment on above:Performed By: #### CMP, HSTROPN, BNP #### [facility] [address] [place] [address] Dr. Get Paytonrythrocyte distribution width (RBC) [Ratio]12.7 %Ujlotd58.0-15.0 The [facility] HospitalComment on above:Performed By: #### CMP, HSTROPN, BNP #### [facility] [address] [place] [address] Dr. Get WhittenHematocrit (Bld) [Volume fraction]38.7 %Critically low42.0-54.0 The [facility] HospitalComment on above:Performed By: #### CMP, HSTROPN, BNP #### [facility] [address] [place] [address] Dr. Get WhittenHemoglobin (Bld) [Mass/Vol]13.6 g/dLCritically low14.0-18.0The [facility] Centerment on above:Performed By: #### CMP, HSTROPN, BNP #### [facility] [address] [place] [address] Dr. Get Sanford #1.95 10e3/ulCritically high0.00-0.03The [facility] Comment on above:Performed By: #### CMP, HSTROPN, BNP #### [facility] [address] [place] [address] Dr. Get Sanford %16.0 %Critically high0.0-0.5The [facility] HospitalComment on above:Performed By: #### CMP, HSTROPN, BNP #### [facility] [address] [place] [address] Dr. Get Otoole #1.7 103/ulNormal1.2-3.8The [facility] HospitalComment on above:Performed By: #### CMP, HSTROPN, BNP #### [facility] [address] [place] [address] Dr. Get Ramirezhocytes/100 WBC (Bld)13.8 %Critically low20.5-60.0The [facility] HospitalComment on above:Performed By: #### CMP, HSTROPN, BNP #### [facility] [address] [place] [address] Dr. Get HeadUAL DIFF REQNONormalThe [facility] HospitalComment on above: Performed By: #### CMP, HSTROPN, BNP #### [facility] [address] [place] [address] Dr. Get Fried (RBC) [Entitic mass]36.2 pgCritically high25.9-34.0The [facility] HospitalComment on above:Performed By: #### CMP, HSTROPN, BNP #### [facility] [address] [place] [address] Dr. Get Fried (RBC) [Mass/Vol]35.1 g/hMNrxcaz33.9-35.2The [facility] HospitalComment on above:Performed By: #### CMP, HSTROPN, BNP #### [facility] [address] [place] [address] Dr. Get Fried (RBC) [Entitic vol]102.9 fLCritically high80.0-94.0The [facility] HospitalComment on above:Performed By: #### CMP, HSTROPN, BNP #### [facility] [address] [place] [address] Dr. Get Bill #0.4 103/ulNormal0.3-0.8The [facility] HospitalComment on above:Performed By: #### CMP, HSTROPN, BNP #### [facility] [address] [place] [address] Dr. Get Lockettocytes/100 WBC (Bld)3.3 %Normal1.7-12.0The [facility] Comment on above:Performed By: #### CMP, HSTROPN, BNP #### [facility] [address] [place] [address] Dr. Get Falcon #8.2 103/ulCritically high1.4-6.5The [facility] Comment on above:Performed By: #### CMP, HSTROPN, BNP #### [facility] [address] [place] [address] Dr. Get Andersonutrophils/100 WBC (Bld)66.7 %Yfyizj97.0-75.0The [facility] HospitalComment on above:Performed By: #### CMP, HSTROPN, BNP #### [facility] [address] [place] [address] Dr. Get WhittenPlatelet mean volume (Bld) [Entitic vol]9.2 fLCritically low 9.5-13.5The [facility] HospitalComment on above:Performed By: #### CMP, HSTROPN, BNP #### [facility] [address] [place] [address] Dr. Get WhittenPLT167 103/zaOeumwf884-568Uyi [facility] HospitalComment on above: Performed By: #### CMP, HSTROPN, BNP #### [facility] [address] [place] [address] Dr. Get WhittenRBC3.76 106/ulCritically low4.70-6.10The [facility] HospitalComment on above:Performed By: #### CMP, HSTROPN, BNP #### [facility] [address] [place] [address] Dr. Get WhittenWBC12.2 103/ulCritically high4.0-11.0The [facility] HospitalComment on above:Performed By: #### CMP, HSTROPN, BNP #### [facility] [address] [address] [address] Get Richards 14(COMP METB)on [id number] [Mass/Vol]3.1 g/dL Critically low3.4-5.0The [facility] HospitalComment on above:Performed By: #### BNP, T7, CMP, TSH #### [facility] [address] [address] [address] Get WhittenAlbumin/Globulin [Mass ratio]1.1 {ratio}NormalThe [facility] HospitalComment on above:Performed By: #### BNP, T7, CMP, TSH #### [facility] [address] [place] [address] Dr. Get MartinezP [Catalytic activity/Vol]44 U/LCritically gbj18-047Hzw [facility] Centerment on above:Performed By: #### BNP, T7, CMP, TSH #### [facility] [address] [place] [address] Dr. Get Pichardo [Catalytic activity/Vol]87 U/LCritically jxge39-76Vbq [facility] HospitalComment on above:Performed By: #### BNP, T7, CMP, TSH #### [facility] [address] [place] [address] Dr. Get Crow gap [Moles/Vol]12.6 mmol/LNormalThe [facility] Comment on above:Performed By: #### BNP, T7, CMP, TSH #### [facility] [address] [place] [address] Dr. Get WhittenAST [Catalytic activity/Vol]38 U/LCritically vhvm52-40Edq [facility] HospitalComment on above:Performed By: #### BNP, T7, CMP, TSH #### [facility] [address] [place] [address] Dr. Get WhittenBilirubin [Mass/Vol]0.4 mg/dLNormal0.2-1.0The [facility] Comment on above:Performed By: #### BNP, T7, CMP, TSH #### [facility] [address] [address] [address] Get WhittenCalcium [Mass/Vol]7.7 mg/dLCritically low8.5-10.1The [facility] HospitalComment on above:Performed By: #### BNP, T7, CMP, TSH #### [facility] [address] [place] [address] Dr. Get hWittenChloride [Moles/Vol]97 mmol/LCritically ngf24-258Ypv [facility] HospitalComment on above:Performed By: #### BNP, T7, CMP, TSH #### [facility] [address] [place] [address] Dr. Get WhittenCO2 [Moles/Vol]22.1 mmol/BXfymjk16.0-32.0The [facility] Comment on above:Performed By: #### BNP, T7, CMP, TSH #### [facility] [address] [place] [address] Dr. Get WhittenCreatinine [Mass/Vol]1.17 mg/dLNormal0.70-1.30The [facility] HospitalComment on above:Performed By: #### BNP, T7, CMP, TSH #### [facility] [address] [place] [address] Dr. Get PaytonGFR-AF DOMINICAN>60Normal>=60The [facility] HospitalComment on above:Performed By: #### BNP, T7, CMP, TSH #### [facility] [address] [place] [address] Dr. Get PaytonGFR-NON AF DOMINICAN>60Normal>=60The [facility] Centerment on above:Performed By: #### BNP, T7, CMP, TSH #### [facility] [address] [place] [address] Dr. Get WhittenGlobulin (S) [Mass/Vol]2.7 g/dLNormalThe [facility] HospitalComment on above:Performed By: #### BNP, T7, CMP, TSH #### [facility] [address] [place] [address] Dr. Get WhittenGlucose [Mass/Vol]165 mg/dLCritically rmmx60-839Qoe [facility] HospitalComment on above:Performed By: #### BNP, T7, CMP, TSH #### [facility] [address] [address] [address] Get WhittenPotassium [Moles/Vol]3.7 mmol/LNormal3.5-5.1The [facility] Comment on above:Performed By: #### BNP, T7, CMP, TSH #### [facility] [address] [address] [address] Get WhittenProtein [Mass/Vol]5.8 g/dLCritically low6.4-8.2The [facility] HospitalComment on above:Performed By: #### BNP, T7, CMP, TSH #### [facility] [address] [address] [address] Get Oharadium [Moles/Vol]128 mmol/LCritically wxu035-516Udq [facility] HospitalComment on above:Performed By: #### BNP, T7, CMP, TSH #### [facility] [address] [address] [address] Get WhittenUrea nitrogen [Mass/Vol]17.0 mg/dLNormal7.0-18.0The [facility] HospitalComment on above:Performed By: #### BNP, T7, CMP, TSH #### [facility] [address] [address] [address] Get WhittenUrea nitrogen/Creatinine [Mass ratio]14.5 mg/mgNormalThe [facility] HospitalComment on above:Performed By: #### BNP, T7, CMP, TSH #### [facility] [address] [place] [address] Dr. Get Turner RANDOM URINEon 50-91-2177Zuehvo (U) [Moles/Vol]6 mmol/L Critically gzf42-24Wgc [facility] HospitalComment on above:Performed By: #### BNP, T7, CMP, TSH #### [facility] [address] [place] [address] Dr. Get Dawson 60-85-8068Dffctopgyph peptide B (Bld) [Mass/Vol]472.0 pg/mL Normal<=900.0[facility] For RehabilitationComment on above:Performed By: #### CMP, HSTROPN, BNP #### [facility] [address] [place] [address] Dr. Get Crockett ANA 3-6on 63-01-4053JX [Catalytic activity/Vol]53 U/L Cqctes92-486Xxz [facility] HospitalComment on above:Performed By: #### CVDTBH #### [facility] [address] [place] [address] Dr. Get Melara.MB [Mass/Vol]1.61 ng/mLNormal<=3.60[facility] Comment on above:Performed By: #### CVDTBH #### [facility] [address] [place] [address] Dr. Get Mckay20.2 pg/mLNormal4.0-76.1The [facility] HospitalCompaul [facility] on above:Result Comment: CUT-OFF POINTS HAVE BEEN ESTABLISHED BASED ON THE FOURTH UNIVERSAL DEFINITIONS OF MYOCARDIAL INFARCTION. THE UPPER REFERENCE LIMIT (URL) OF TROPONIN, DEFINED THE 99TH PERCENTILE OF cTnI DISTRIBUTION IN A REFERENCE POPULATION, HAS BEEN CONFIRMED THE DECISION THRESHOLD FOR CA DIAGNOSIS.Performed By: #### CVDTBH #### [facility] [address] [place] [address] Dr. Get Melara [Catalytic activity/Vol]40 U/RWafgzk47-246OacCleveland Clinic Children'S Hospital For RehabilitationComment on above:Performed By: #### BNP, T7, CMP, TSH #### [facility] [address] [place] [address] Dr. Get OleaMB [Mass/Vol]1.53 ng/mLNormal<=3.60[facility] Comment on above:Performed By: #### BNP, T7, CMP, TSH #### [facility] [address] [place] [address] Dr. Get Mckay23.6 pg/mLNormal4.0-76.1The [facility] HospitalCompaul [facility] on above:Result Comment: CUT-OFF POINTS HAVE BEEN ESTABLISHED BASED ON THE FOURTH UNIVERSAL DEFINITIONS OF MYOCARDIAL INFARCTION. THE UPPER REFERENCE LIMIT (URL) OF TROPONIN, DEFINED THE 99TH PERCENTILE OF cTnI DISTRIBUTION IN A REFERENCE POPULATION, HAS BEEN CONFIRMED THE DECISION THRESHOLD FOR CA DIAGNOSIS.Performed By: #### BNP, T7, CMP, TSH #### [facility] [address] [address] [address] Get Meyer W MANUAL DIFFon [id number] LYMPH #NormalThe [facility] HospitalComment on above:Performed By: #### CMP, HSTROPN, BNP #### [facility] [address] [address] [address] Get EdouardYPICAL LYMPH %NormalThe [facility] HospitalComment on above: Performed By: #### CMP, HSTROPN, BNP #### [facility] [address] [place] [address] Dr. Get Day #0.5 103/ulCritically high0.0-0.3The [facility] Comment on above:Performed By: #### CMP, HSTROPN, BNP #### [facility] [address] [address] [address] Get Day %4 %Normal0-5The [facility] HospitalComment on above:Performed By: #### CMP, HSTROPN, BNP #### [facility] [address] [place] [address] Dr. Get Aceves #0.00 103/ulNormal0.00-0.10The [facility] HospitalComment on above:Performed By: #### CMP, HSTROPN, BNP #### [facility] [address] [address] [address] Get Aceves %0.0 %Critically low0.2-2.0The [facility] HospitalComment on above:Performed By: #### CMP, HSTROPN, BNP #### [facility] [address] [place] [address] Dr. Get Wing #NormalThe [facility] HospitalComment on above:Performed By: #### CMP, HSTROPN, BNP #### [facility] [address] [place] [address] Dr. Get WhittenBLAST %NormalThe [facility] HospitalComment on above:Performed By: #### CMP, HSTROPN, BNP #### [facility] [address] [place] [address] Dr. Get WhittenCORRECTED WBCNormal4.0-11.0The [facility] on above: Performed By: #### CMP, HSTROPN, BNP #### [facility] [address] [place] [address] Dr. Get Kendrick #0.00 103/ulNormal0.00-0.70The [facility] HospitalCompaul [facility] on above:Performed By: #### CMP, HSTROPN, BNP #### [facility] [address] [place] [address] Dr. Get Kendrick%0.0 %Critically low0.9-7.0The [facility] HospitalCompaul [facility] on above:Performed By: #### CMP, HSTROPN, BNP #### [facility] [address] [place] [address] Dr. Get WhittenHCT44.0 %Hcvmxj22.0-54.0The [facility] HospitalCompa[facility] on above: Performed By: #### CMP, HSTROPN, BNP #### [facility] [address] [place] [address] Dr. Get WhittenHGB15.8 g/etIacygl75.0-18.0The [facility] HospitalCompa[facility] on above: Performed By: #### CMP, HSTROPN, BNP #### [facility] [address] [place] [address] Dr. Get WhittenHYPERSEG NEUT2+NormalThe [facility] HospitalComment on above: Performed By: #### CMP, HSTROPN, BNP #### [facility] [address] [place] [address] Dr. Get HargroveMPHM #1.56 103/ulNormal1.20-3.80The [facility] HospitalComment on above:Performed By: #### CMP, HSTROPN, BNP #### [facility] [address] [address] [address] Get Villarreal%13.0 %Critically low20.5-60.0The [facility] HospitalComment on above:Performed By: #### CMP, HSTROPN, BNP #### [facility] [address] [address] [address] Get FriedH36.2 pgCritically high25.9-34.0The [facility] HospitalComment on above:Performed By: #### CMP, HSTROPN, BNP #### [facility] [address] [address] [address] Get FriedHC35.9 g/dlCritically high29.9-35.2The [facility] HospitalComment on above:Performed By: #### CMP, HSTROPN, BNP #### [facility] [address] [address] [address] Get FriedV100.7 fLCritically high80.0-94.0The [facility] HospitalComment on above:Performed By: #### CMP, HSTROPN, BNP #### [facility] [address] [address] [address] Get SalinasOCYTE #NormalThe [facility] HospitalComment on above: Performed By: #### CMP, HSTROPN, BNP #### [facility] [address] [address] [address] Get SalinasOCYTE %NormalThe [facility] HospitalComment on above: Performed By: #### CMP, HSTROPN, BNP #### [facility] [address] [address] [address] Get Leyva#1.08 103/ulCritically high0.30-0.80The [facility] Comment on above:Performed By: #### CMP, HSTROPN, BNP #### [facility] [address] [address] [address] Get Leyva%9.0 %Normal1.7-12.0The [facility] HospitalComment on above: Performed By: #### CMP, HSTROPN, BNP #### [facility] [address] [address] [address] Get RivasV10.3 fLNormal9.5-13.5The [facility] HospitalComment on above: Performed By: #### CMP, HSTROPN, BNP #### [facility] [address] [address] [address] eGt CaryOCYTE #NormalThe [facility] HospitalComment on above:Performed By: #### CMP, HSTROPN, BNP #### [facility] [address] [address] [address] Get CaryOCYTE %NormalThe [facility] Centerment on above:Performed By: #### CMP, HSTROPN, BNP #### [facility] [address] [address] [address] Get ConnBCNormalThe [facility] HospitalComment on above:Performed By: #### CMP, HSTROPN, BNP #### [facility] [address] [address] [address] Get SalazarT111 103/ulCritically rmw337-007Kqr [facility] Centerment on above:Performed By: #### CMP, HSTROPN, BNP #### [facility] [address] [address] [address] Get RubioC4.37 106/ulCritically low4.70-6.10The [facility] HospitalComment on above:Performed By: #### CMP, HSTROPN, BNP #### [facility] [address] [address] [address] Get WhittenRDW12.4 %Kwleub41.0-15.0The [facility] Centerment on above: Performed By: #### CMP, HSTROPN, BNP #### [facility] [address] [address] [address] Get Kimble #8.88 103/ulCritically high1.40-6.50The [facility] Comment on above:Performed By: #### CMP, HSTROPN, BNP #### [facility] [address] [address] [address] Get Kimble %74.0 %Taefto57.0-75.0The [facility]ment on above: Performed By: #### CMP, HSTROPN, BNP #### [facility] [address] [place] [address] Dr. Get WhittenWBC12.0 103/ulCritically high4.0-11.0[facility] on above:Performed By: #### CMP, HSTROPN, BNP #### [facility] [address] [place] [address] Dr. Get Cintron [id number] [Mass/Vol]mg/LNormal<=1.0[facility] on above:Performed By: #### CMP, HSTROPN, BNP #### [facility] [address] [place] [address] Dr. Get WhittenCovid-19 PCR (CVDTBH)on [id number]-CoV-2 (COVID-19) RNA ASHLEE+probe Ql (Unsp spec)DetectedCritically abnormalNOT DETECTEDThe [facility] on above:Result Comment: This test is not yet approved or cleared by the [place] FDA. When there are no FDA-approved or cleared tests available, and other criteria are met, FDA can make tests available under an emergency access mechanism called an Emergency Use Authorization (EUA). The EUA for this test is supported by the Orthodontist Assistant of Health and Human Service's declaration that [...] longer be used).Performed By: #### CVDTBH #### [facility] [address] [place] [address] Dr. Get WhittenLACTATE/LACTIC ACIDon [id number] [Moles/Vol]0.4 mmol/L Normal0.4-1.9The [facility] HospitalComment on above:Performed By: #### CMP, HSTROPN, BNP #### [facility] [address] [place] [address] Dr. Get Mckeon 15-06-8819Fyppaj [Moles/Vol]126 mmol/LCritically nns813-591 The [facility] HospitalComment on above:Performed By: #### BNP, T7, CMP, TSH #### [facility] [address] [place] [address] Dr. Get Richards 14(COMP METB)on 68-53-9620Mdovivs [Mass/Vol]3.6 g/dLNormal 3.4-5.0The [facility] HospitalComment on above:Performed By: #### CMP, HSTROPN, BNP #### [facility] [address] [place] [address] Dr. Get WhittenAlbumin/Globulin [Mass ratio]1.0 {ratio}NormalThe [facility] HospitalComment on above:Performed By: #### CMP, HSTROPN, BNP #### [facility] [address] [place] [address] Dr. Get Saba [Catalytic activity/Vol]49 U/ADvppyv48-418Qrc [facility] HospitalComment on above:Performed By: #### CMP, HSTROPN, BNP #### [facility] [address] [place] [address] Dr. Get Pichardo [Catalytic activity/Vol]80 U/LCritically acjm87-85Wjr [facility] HospitalComment on above:Performed By: #### CMP, HSTROPN, BNP #### [facility] [address] [place] [address] Dr. Get Crow gap [Moles/Vol]16.2 mmol/LNormalThe [facility] on above:Performed By: #### CMP, HSTROPN, BNP #### [facility] [address] [place] [address] Dr. Yilan ChangAST [Catalytic activity/Vol]42 U/LCritically hhlt02-85Hhi [facility] HospitalComment on above:Performed By: #### CMP, HSTROPN, BNP #### [facility] [address] [address] [address] Get WhittenBilirubin [Mass/Vol]0.7 mg/dLNormal0.2-1.0The [facility] Comment on above:Performed By: #### CMP, HSTROPN, BNP #### [facility] [address] [address] [address] Get WhittenCalcium [Mass/Vol]8.4 mg/dLCritically low8.5-10.1The [facility] HospitalComment on above:Performed By: #### CMP, HSTROPN, BNP #### [facility] [address] [address] [address] Get WhittenChloride [Moles/Vol]91 mmol/LCritically xgi70-972Wio [facility] HospitalComment on above:Performed By: #### CMP, HSTROPN, BNP #### [facility] [address] [address] [address] Get WhittenCO2 [Moles/Vol]19.8 mmol/LCritically low21.0-32.0The [facility] HospitalComment on above:Performed By: #### CMP, HSTROPN, BNP #### [facility] [address] [address] [address] Get WhittenCreatinine [Mass/Vol]1.11 mg/dLNormal0.70-1.30The [facility] Centerment on above:Performed By: #### CMP, HSTROPN, BNP #### [facility] [address] [address] [address] Get PaytonGFR-AF DOMINICAN>60Normal>=60The [facility] HospitalComment on above:Performed By: #### CMP, HSTROPN, BNP #### [facility] [address] [address] [address] Get PaytonGFR-NON AF DOMINICAN>60Normal>=60The [facility] Centerment on above:Performed By: #### CMP, HSTROPN, BNP #### [facility] [address] [address] [address] Get WhittenGlobulin (S) [Mass/Vol]3.6 g/dLNormCleveland Clinic Medina HospitalComment on above:Performed By: #### CMP, HSTROPN, BNP #### [facility] [address] [place] [address] Dr. Get WhittenGlucose [Mass/Vol]109 mg/dLCritically mzfm65-055Nay [facility] HospitalComment on above:Performed By: #### CMP, HSTROPN, BNP #### [facility] [address] [place] [address] Dr. Get WhittenPotassium [Moles/Vol]4.0 mmol/LNormal3.5-5.1The [facility] Comment on above:Performed By: #### CMP, HSTROPN, BNP #### [facility] [address] [place] [address] Dr. Get WhittenProtein [Mass/Vol]7.2 g/dLNormal6.4-8.2The [facility] Comment on above:Performed By: #### CMP, HSTROPN, BNP #### [facility] [address] [place] [address] Dr. Get WhittenSodium [Moles/Vol]123 mmol/LCritically wai736-374Hrz [facility] HospitalComment on above:Performed By: #### CMP, HSTROPN, BNP #### [facility] [address] [place] [address] Dr. Get WhittenUrea nitrogen [Mass/Vol]15.0 mg/dLNormal7.0-18.0The [facility] HospitalComment on above:Performed By: #### CMP, HSTROPN, BNP #### [facility] [address] [place] [address] Dr. Get WhittenUrea nitrogen/Creatinine [Mass ratio]13.5 mg/mgNoDiley Ridge Medical CenterComment on above:Performed By: #### CMP, HSTROPN, BNP #### [facility] [address] [address] [address] Get Reid GRAM STAINon 91-41-5738EGUHATMHGB ORGANISMS OBSERVEDWilson [facility] HospitalCompaul [facility] on above:Performed By: #### CVDTBH #### [facility] [address] [address] [address] Get WhittenDIPHTHEROIDSCrystal Clinic Orthopedic CenterCompaul [facility] on above:Performed By: #### CVDTBH #### [facility] [address] [address] [address] Deutsch ChangEPITHELIALS<25[facility] Orthopedic CenterCompaul [facility] on above: Performed By: #### CVDTBH #### [facility] [address] [address] [address] Get WhittenFUNGAL ELEMENTSCrystal Clinic Orthopedic CenterCompaul [facility] hospital on above: Performed By: #### CVDTBH #### [facility] [address] [address] [address] Get Bonner NEG BACILLICrystal Clinic Orthopedic CenterCompaul [facility] memorial hospital on above: Performed By: #### CVDTBH #### [facility] [address] [address] [address] Get Bonner NEG DIPPLOCOCCICrystal Clinic Orthopedic CenterCompaul [facility] on above: Performed By: #### CVDTBH #### [facility] [address] [address] [address] Get Bonner POS BACILLICrystal Clinic Orthopedic CenterCompaul oliver memorial hospital on above: Performed By: #### CVDTBH #### [facility] [address] [address] [address] Get Bonner POSITIVE COCCINoDiley Ridge Medical CenterCompaul [facility] on above: Performed By: #### CVDTBH #### [facility] [address] [address] [address] Get Hedrick (Bld) [#/Vol]10*3/uLAdena Fayette Medical [facility] on above:Performed By: #### CVDTBH #### [facility] [address] [place] [address] Dr. Get Charles, HIGH SENSITIVITYon 04-24-3748DDSIOM28.8 pg/mLNormal 4.0-76.1The [facility] on above:Result Comment: CUT-OFF POINTS HAVE BEEN ESTABLISHED BASED ON THE FOURTH UNIVERSAL DEFINITIONS OF MYOCARDIAL INFARCTION. THE UPPER REFERENCE LIMIT (URL) OF TROPONIN, DEFINED THE 99TH PERCENTILE OF cTnI DISTRIBUTION IN A REFERENCE POPULATION, HAS BEEN CONFIRMED THE DECISION THRESHOLD FOR CA DIAGNOSIS.Performed By: #### CMP, HSTROPN, BNP #### [facility] [address] [place] [address] Dr. Get Hidalgo 61-22-2591YGA59.305 uIU/mLCritically high0.358-3.740The [facility] Centerment on above:Performed By: #### CMP, HSTROPN, BNP #### [facility] [address] [place] [address] Dr. Get WhittenXR CHEST 1 Von [id number] CHEST 1 VEXAM: XR CHEST 1 V HISTORY: COUGH COMPARISON: Chest x-ray 03/23/2022 TECHNIQUE: Single frontal view chest x-ray FINDINGS: No lobar consolidation, large pleural effusions, pneumothorax, or acute bony abnormality. Cardiac size is unremarkable. IMPRESSION: No radiographic evidence for acute chest abnormality. Electronically authenticated by: JANKI STEEL Date: 2022-03-26 04:[address] [place], [place] [address]BNPon [id number] peptide B (Bld) [Mass/Vol]385.0 pg/mLNormal<=900.0The [facility] HospitalComment on above:Performed By: #### CMP, HSTROPN, BNP #### [facility] [address] [place] [address] Dr. Get WhittenCBC W MANUAL DIFFon 61-47-1179WTIHSQFF LYMPH #NormalThe [facility] HospitalComment on above:Performed By: #### BNP, T7, CMP, TSH #### [facility] [address] [place] [address] Dr. Get Bhatia LYMPH %NormalCleveland Clinic Children'S Hospital For RehabilitationComment on above: Performed By: #### BNP, T7, CMP, TSH #### [facility] [address] [place] [address] Dr. Get Day #0.2 103/ulNormal0.0-0.3The [facility] HospitalComment on above:Performed By: #### BNP, T7, CMP, TSH #### [facility] [address] [place] [address] Dr. Get Day %2 %Normal0-5The [facility] HospitalComment on above:Performed By: #### BNP, T7, CMP, TSH #### [facility] [address] [place] [address] Dr. Get Aceves #0.00 103/ulNormal0.00-0.10The [facility] HospitalComment on above:Performed By: #### BNP, T7, CMP, TSH #### [facility] [address] [place] [address] Dr. Get Aceves %0.0 %Critically low0.2-2.0The [facility] HospitalCompaul [facility] memorial [facility] on above:Performed By: #### BNP, T7, CMP, TSH #### [facility] [address] [place] [address] Dr. Get Wing #NormalCleveland Clinic Children'S Hospital For RehabilitationCompaul [facility] hospital on above:Performed By: #### BNP, T7, CMP, TSH #### [facility] [address] [place] [address] Dr. Get Wing %NormalThe [facility] HospitalComment on above:Performed By: #### BNP, T7, CMP, TSH #### [facility] [address] [place] [address] Dr. Get WhittenCORRECTED WBCNormal4.0-11.0The [facility] HospitalComment on above: Performed By: #### BNP, T7, CMP, TSH #### [facility] [address] [place] [address] Dr. Get Kendrick #0.00 103/ulNormal0.00-0.70The [facility] HospitalComment on above:Performed By: #### BNP, T7, CMP, TSH #### [facility] [address] [address] [address] Get Kendrick%0.0 %Critically low0.9-7.0The [facility] HospitalComment on above:Performed By: #### BNP, T7, CMP, TSH #### [facility] [address] [address] [address] Get WhittenHCT45.6 %Dxzkbi31.0-54.0The [facility] HospitalComment on above: Performed By: #### BNP, T7, CMP, TSH #### [facility] [address] [place] [address] Dr. Get WhittenHGB16.3 g/jsAobgqt93.0-18.0The [facility] HospitalComment on above: Performed By: #### BNP, T7, CMP, TSH #### [facility] [address] [place] [address] Dr. Get Villarreal #0.89 103/ulCritically low1.20-3.80The [facility] Comment on above:Performed By: #### BNP, T7, CMP, TSH #### [facility] [address] [place] [address] Dr. Get Villarreal%9.0 %Critically low20.5-60.0The [facility] HospitalComment on above:Performed By: #### BNP, T7, CMP, TSH #### [facility] [address] [place] [address] Dr. Get WhittenMCH36.5 pgCritically high25.9-34.0The [facility] HospitalComment on above:Performed By: #### BNP, T7, CMP, TSH #### [facility] [address] [place] [address] Dr. Get FriedHC35.7 g/dlCritically high29.9-35.2The [facility] HospitalComment on above:Performed By: #### BNP, T7, CMP, TSH #### [facility] [address] [place] [address] Dr. Get FriedV102.0 fLCritically high80.0-94.0[facility] on above:Performed By: #### BNP, T7, CMP, TSH #### [facility] [address] [address] [address] Get Heredia #NormalCleveland Clinic Children'S Hospital For RehabilitationComment on above: Performed By: #### BNP, T7, CMP, TSH #### [facility] [address] [address] [address] Get SalinasOCYTE %NormalCleveland Clinic Children'S Hospital For RehabilitationComment on above: Performed By: #### BNP, T7, CMP, TSH #### [facility] [address] [place] [address] Dr. Get Leyva#0.89 103/ulCritically high0.30-0.80The [facility] on above:Performed By: #### BNP, T7, CMP, TSH #### [facility] [address] [place] [address] Dr. Get Leyva%9.0 %Normal1.7-12.0[facility] on above: Performed By: #### BNP, T7, CMP, TSH #### [facility] [address] [place] [address] Dr. Get RivasV8.8 fLCritically low9.5-13.5The [facility] HospitalCompaul [facility]liver [facility] on above:Performed By: #### BNP, T7, CMP, TSH #### [facility] [address] [place] [address] Dr. Get Kasper #NormalRegency Hospital [facility] Eastment on above:Performed By: #### BNP, T7, CMP, TSH #### [facility] [address] [place] [address] Dr. Get Kasper %NormalCleveland Clinic Children'S Hospital For RehabilitationCompaul [facility] memorial hospital on above:Performed By: #### BNP, T7, CMP, TSH #### [facility] [address] [place] [address] Dr. Get CaballeroNormalThe [facility] HospitalComment on above:Performed By: #### BNP, T7, CMP, TSH #### [facility] [address] [place] [address] Dr. Get WhittenPLT156 103/xzAzdaow944-760Bfu [facility] Centerment on above: Performed By: #### BNP, T7, CMP, TSH #### [facility] [address] [place] [address] Dr. Get WhittenRBC4.47 106/ulCritically low4.70-6.10The [facility] HospitalComment on above:Performed By: #### BNP, T7, CMP, TSH #### [facility] [address] [place] [address] Dr. Get WhittenRDW12.4 %Tgstqu76.0-15.0The [facility] Centerment on above: Performed By: #### BNP, T7, CMP, TSH #### [facility] [address] [place] [address] Dr. Get Kimble #7.92 103/ulCritically high1.40-6.50The [facility] Comment on above:Performed By: #### BNP, T7, CMP, TSH #### [facility] [address] [place] [address] Dr. Get Kimble %80.0 %Critically high43.0-75.0The [facility] on above:Performed By: #### BNP, T7, CMP, TSH #### [facility] [address] [place] [address] Dr. Get WhittenWBC9.9 103/ulNormal4.0-11.0The [facility] Centerment on above: Performed By: #### BNP, T7, CMP, TSH #### [facility] [address] [place] [address] Dr. Get Richards 14(COMP METB)on 66-35-4262Dhahfem [Mass/Vol]3.9 g/dLNormal 3.4-5.0The [facility] Centerment on above:Performed By: #### CMP, HSTROPN, BNP #### [facility] [address] [address] [address] Get WhittenAlbumin/Globulin [Mass ratio]1.1 {ratio}NormalThe [facility] HospitalComment on above:Performed By: #### CMP, HSTROPN, BNP #### [facility] [address] [address] [address] Get MartinezP [Catalytic activity/Vol]55 U/HAdkhbe33-206Hsj [facility] HospitalComment on above:Performed By: #### CMP, HSTROPN, BNP #### [facility] [address] [address] [address] Get MartinezT [Catalytic activity/Vol]67 U/LCritically bszp53-01Pie [facility] HospitalComment on above:Performed By: #### CMP, HSTROPN, BNP #### [facility] [address] [place] [address] Dr. Get Torrezon gap [Moles/Vol]13.2 mmol/LNormalThe [facility] Comment on above:Performed By: #### CMP, HSTROPN, BNP #### [facility] [address] [place] [address] Dr. Get WhittenAST [Catalytic activity/Vol]20 U/FMxklgy23-23Npx [facility] HospitalComment on above:Performed By: #### CMP, HSTROPN, BNP #### [facility] [address] [place] [address] Dr. Get WhittenBilirubin [Mass/Vol]0.4 mg/dLNormal0.2-1.0The [facility] Comment on above:Performed By: #### CMP, HSTROPN, BNP #### [facility] [address] [place] [address] Dr. Get WhittenCalcium [Mass/Vol]8.5 mg/dLNormal8.5-10.1The [facility] Comment on above:Performed By: #### CMP, HSTROPN, BNP #### [facility] [address] [place] [address] Dr. Get WhittenChloride [Moles/Vol]93 mmol/LCritically xdo24-957Psz [facility] HospitalComment on above:Performed By: #### CMP, HSTROPN, BNP #### [facility] [address] [address] [address] Get WhittenCO2 [Moles/Vol]22.6 mmol/BMddflx31.0-32.0The [facility] Comment on above:Performed By: #### CMP, HSTROPN, BNP #### [facility] [address] [address] [address] Get WhittenCreatinine [Mass/Vol]1.26 mg/dLNormal0.70-1.30The [facility] HospitalComment on above:Performed By: #### CMP, HSTROPN, BNP #### [facility] [address] [place] [address] Dr. Get PaytonGFR-AF DOMINICAN>60Normal>=60The [facility] HospitalComment on above:Performed By: #### CMP, HSTROPN, BNP #### [facility] [address] [place] [address] Dr. Get PaytonGFR-NON AF ZZXQAIZN33 mL/min/1.25v5Xohanqgqkz low>=60The [facility] HospitalComment on above:Performed By: #### CMP, HSTROPN, BNP #### [facility] [address] [place] [address] Dr. Get WhittenGlobulin (S) [Mass/Vol]3.5 g/dLNormalThe [facility] HospitalComment on above:Performed By: #### CMP, HSTROPN, BNP #### [facility] [address] [place] [address] Dr. Get WhittenGlucose [Mass/Vol]144 mg/dLCritically uigm16-371Ewt [facility] on above:Performed By: #### CMP, HSTROPN, BNP #### [facility] [address] [place] [address] Dr. Get WhittenPotassium [Moles/Vol]3.9 mmol/LNormal3.5-5.1The [facility] Comment on above:Performed By: #### CMP, HSTROPN, BNP #### [facility] [address] [address] [address] Get WhittenProtein [Mass/Vol]7.4 g/dLNormal6.4-8.2The [facility] Comment on above:Performed By: #### CMP, HSTROPN, BNP #### [facility] [address] [place] [address] Dr. Get WhittenSodium [Moles/Vol]125 mmol/LCritically eqh175-032Klw [facility] HospitalComment on above:Performed By: #### CMP, HSTROPN, BNP #### [facility] [address] [place] [address] Dr. Get WhittenUrea nitrogen [Mass/Vol]14.0 mg/dLNormal7.0-18.0The [facility] HospitalComment on above:Performed By: #### CMP, HSTROPN, BNP #### [facility] [address] [place] [address] Dr. Get De Jesus nitrogen/Creatinine [Mass ratio]11.1 mg/mgNormalThe [facility] HospitalComment on above:Performed By: #### CMP, HSTROPN, BNP #### [facility] [address] [place] [address] Dr. Get Charles, HIGH SENSITIVITYon 32-13-0790GCUGHS3.6 pg/mLNormal 4.0-76.1The [facility] HospitalComment on above:Result Comment: CUT-OFF POINTS HAVE BEEN ESTABLISHED BASED ON THE FOURTH UNIVERSAL DEFINITIONS OF MYOCARDIAL INFARCTION. THE UPPER REFERENCE LIMIT (URL) OF TROPONIN, DEFINED THE 99TH PERCENTILE OF cTnI DISTRIBUTION IN A REFERENCE POPULATION, HAS BEEN CONFIRMED THE DECISION THRESHOLD FOR CA DIAGNOSIS.Performed By: #### CMP, HSTROPN, BNP #### [facility] [address] [place] [address] Dr. Get WhittenXR CHEST 1 Von [id number] CHEST 1 VEXAMINATION: XR CHEST 1 V [...] Electronically authenticated by: SHEN SOSA Date: 2022-03-23 15:02[facility] CenterCovid-19 PCR (CVDTBH)on 52-91-1264PRQW-CoV-2 (COVID-19) RNA ASHLEE+probe Ql (Unsp spec)DetectedCritically abnormalNOT DETECTEDThe [facility] HospitalComment on above:Result Comment: This test is not yet approved or cleared by the [place] FDA. When there are no FDA-approved or cleared tests available, and other criteria are met, FDA can make tests available under an emergency access mechanism called an Emergency Use Authorization (EUA). The EUA for this test is supported by the [place] of Health and Human Service's declaration that [...] used).Performed By: #### CMP, HSTROPN, BNP #### [facility] [address] [address] [address] Get Meyer AUTO DIFFon 03-08-2131CHQT #0.1 103/ulNormal0.0-0.1The [facility] HospitalComment on above:Performed By: #### BNP, T7, CMP, TSH #### [facility] [address] [address] [address] Get WhittenBasophils/100 WBC (Bld)0.6 %Normal0.2-2.0The [facility] Comment on above:Performed By: #### BNP, T7, CMP, TSH #### [facility] [address] [place] [address] Dr. Get Babcock #0.0 103/ulNormal0.0-0.7The [facility] HospitalComment on above: Performed By: #### BNP, T7, CMP, TSH #### [facility] [address] [place] [address] Dr. Get Paytonosinophils/100 WBC (Bld)0.1 %Critically low0.9-7.0The [facility] HospitalComment on above:Performed By: #### BNP, T7, CMP, TSH #### [facility] [address] [place] [address] Dr. Get Paytonrythrocyte distribution width (RBC) [Ratio]13.1 %Rhqwkz53.0-15.0 The [facility] HospitalComment on above:Performed By: #### BNP, T7, CMP, TSH #### [facility] [address] [place] [address] Dr. Get WhittenHematocrit (Bld) [Volume fraction]41.0 %Critically low42.0-54.0 The [facility] HospitalComment on above:Performed By: #### BNP, T7, CMP, TSH #### [facility] [address] [place] [address] Dr. Get WhittenHemoglobin (Bld) [Mass/Vol]14.3 g/rZDnftbw37.0-18.0The [facility] Centerment on above:Performed By: #### BNP, T7, CMP, TSH #### [facility] [address] [place] [address] Dr. Get WhittenIG #0.25 10e3/ulCritically high0.00-0.03The [facility] Comment on above:Performed By: #### BNP, T7, CMP, TSH #### [facility] [address] [place] [address] Dr. Get Sanford %2.3 %Critically high0.0-0.5The [facility] HospitalComment on above:Performed By: #### BNP, T7, CMP, TSH #### [facility] [address] [place] [address] Dr. Get Otoole #2.4 103/ulNormal1.2-3.8The [facility] HospitalComment on above:Performed By: #### BNP, T7, CMP, TSH #### [facility] [address] [place] [address] Dr. Get Ramirezhocytes/100 WBC (Bld)21.7 %Yumcmv00.5-60.0The [facility] HospitalComment on above:Performed By: #### BNP, T7, CMP, TSH #### [facility] [address] [place] [address] Dr. Get Ace DIFF REQNONormalThe [facility] HospitalComment on above: Performed By: #### BNP, T7, CMP, TSH #### [facility] [address] [place] [address] Dr. Get Manley (RBC) [Entitic mass]37.0 pgCritically high25.9-34.0The [facility] HospitalComment on above:Performed By: #### BNP, T7, CMP, TSH #### [facility] [address] [place] [address] Dr. Get Fried (RBC) [Mass/Vol]34.9 g/qILvtmze73.9-35.2The [facility] HospitalComment on above:Performed By: #### BNP, T7, CMP, TSH #### [facility] [address] [place] [address] Dr. Get Whitten (RBC) [Entitic vol]105.9 fLCritically high80.0-94.0The [facility] HospitalComment on above:Result Comment: 1+ macrocytosisPerformed By: #### BNP, T7, CMP, TSH #### [facility] [address] [place] [address] Dr. Get Bill #0.8 103/ulNormal0.3-0.8The [facility] HospitalComment on above:Performed By: #### BNP, T7, CMP, TSH #### [facility] [address] [place] [address] Dr. Get Lockettocytes/100 WBC (Bld)7.0 %Normal1.7-12.0The [facility] Comment on above:Performed By: #### BNP, T7, CMP, TSH #### [facility] [address] [place] [address] Dr. Get Falcon #7.5 103/ulCritically high1.4-6.5The [facility] Comment on above:Performed By: #### BNP, T7, CMP, TSH #### [facility] [address] [place] [address] Dr. Get Andersonutrophils/100 WBC (Bld)68.3 %Dgbrvo98.0-75.0The [facility] HospitalComment on above:Performed By: #### BNP, T7, CMP, TSH #### [facility] [address] [place] [address] Dr. Get WhittenPlatelet mean volume (Bld) [Entitic vol]8.6 fLCritically low 9.5-13.5The [facility] HospitalComment on above:Performed By: #### BNP, T7, CMP, TSH #### [facility] [address] [place] [address] Dr. Get WihttenPLT235 103/uoYbdecw039-141Uxt [facility] HospitalComment on above: Performed By: #### BNP, T7, CMP, TSH #### [facility] [address] [place] [address] Dr. Get RubioC3.87 106/ulCritically low4.70-6.10The [facility] HospitalComment on above:Performed By: #### BNP, T7, CMP, TSH #### [facility] [address] [place] [address] Dr. Get WhittenWBC11.0 103/ulNormal4.0-11.0The [facility] HospitalComment on above:Performed By: #### BNP, T7, CMP, TSH #### [facility] [address] [place] [address] Dr. Yilan ChangCardinal Hill Rehabilitation Center 07-52-0714Slzkkqf [Mass/Vol]116 mg/dL Critically aoux09-571Goj [facility] HospitalComment on above:Performed By: #### CMP #### [facility] [address] [address] [address] Get VickF CHEM 8 (BAS METB)on 48-59-6493Znqur gap [Moles/Vol]14.2 mmol/LNormalThe [facility] HospitalComment on above:Performed By: #### BNP, T7, CMP, TSH #### [facility] [address] [address] [address] Get WhittenCalcium [Mass/Vol]8.7 mg/dLNormal8.5-10.1[facility] Comment on above:Performed By: #### BNP, T7, CMP, TSH #### [facility] [address] [address] [address] Get WhittenChloride [Moles/Vol]99 mmol/BAjjzoz82-303Mzi [facility] Comment on above:Performed By: #### BNP, T7, CMP, TSH #### [facility] [address] [address] [address] Get WhittenCO2 [Moles/Vol]25.1 mmol/WTmmrue32.0-32.0[facility] Comment on above:Performed By: #### BNP, T7, CMP, TSH #### [facility] [address] [address] [address] Get WhittenCreatinine [Mass/Vol]1.24 mg/dLNormal0.70-1.30The [facility] HospitalComment on above:Performed By: #### BNP, T7, CMP, TSH #### [facility] [address] [address] [address] Get PaytonGFR-AF DOMINICAN>60Normal>=60The [facility] HospitalComment on above:Performed By: #### BNP, T7, CMP, TSH #### [facility] [address] [address] [address] Get PaytonGFR-NON AF DOMINICAN=60Normal>=60The [facility] HospitalComment on above:Performed By: #### BNP, T7, CMP, TSH #### [facility] [address] [address] [address] Get WhittenGlucose [Mass/Vol]122 mg/dLCritically gegn92-689Dgx [facility] HospitalComment on above:Performed By: #### BNP, T7, CMP, TSH #### [facility] [address] [address] [address] Get WhittenPotassium [Moles/Vol]4.3 mmol/LNormal3.5-5.1The [facility] Comment on above:Performed By: #### BNP, T7, CMP, TSH #### [facility] [address] [place] [address] Dr. Get WhittenSodium [Moles/Vol]134 mmol/LCritically ksq532-698Axk [facility] HospitalComment on above:Performed By: #### BNP, T7, CMP, TSH #### [facility] [address] [address] [address] Get WhittenUrea nitrogen [Mass/Vol]7.0 mg/dLNormal7.0-18.0The [facility] HospitalComment on above:Performed By: #### BNP, T7, CMP, TSH #### [facility] [address] [place] [address] Dr. Get WhittenUrea nitrogen/Creatinine [Mass ratio]5.6 mg/mgNormalThe [facility] HospitalComment on above:Performed By: #### BNP, T7, CMP, TSH #### [facility] [address] [place] [address] Dr. Get Charles, HIGH SENSITIVITYon 06-89-6028LFBCVU2.1 pg/mLNormal 4.0-76.1[facility] on above:Result Comment: CUT-OFF POINTS HAVE BEEN ESTABLISHED BASED ON THE FOURTH UNIVERSAL DEFINITIONS OF MYOCARDIAL INFARCTION. THE UPPER REFERENCE LIMIT (URL) OF TROPONIN, DEFINED THE 99TH PERCENTILE OF cTnI DISTRIBUTION IN A REFERENCE POPULATION, HAS BEEN CONFIRMED THE DECISION THRESHOLD FOR CA DIAGNOSIS.Performed By: #### BNP, T7, CMP, TSH #### [facility] [address] [place] [address] Dr. Get Morgan CHEST 1 Von 42-99-9424XA CHEST 1 VEXAM: Chest x-ray HISTORY: . CHEST PAIN, UNSPECIFIED . COMPARISON: 01/09/2022 TECHNIQUE: AP portable upright view of the chest FINDINGS: This is an expiratory chest. Heart and vascularity are unremarkable. Lungs are free of focal infiltrates. EKG leads overlie the chest. IMPRESSION: 1. Expiratory chest. 2. No acute heart or lung disease identified. Electronically authenticated by: JULIO CESAR PARKER Date: 2022-01-24 11:31[facility] Orthopedic CenterBNPon 75-40-7636Grcnkzwlhev peptide B (Bld) [Mass/Vol]83.0 pg/mLNormal<=900.0The [facility] HospitalComment on above:Performed By: #### CMP, HSTROPN, BNP #### [facility] [address] [place] [address] Dr. Get TateC AUTO DIFFon 03-62-6386YGQN #0.0 103/ulNormal0.0-0.1The [facility] HospitalComment on above:Performed By: #### CMP #### [facility] [address] [place] [address] Dr. Get WhittenBasophils/100 WBC (Bld)0.4 %Normal0.2-2.0[facility] Comment on above:Performed By: #### CMP #### [facility] [address] [place] [address] Dr. Get Babcock #0.0 103/ulNormal0.0-0.7The [facility] HospitalComment on above: Performed By: #### CMP #### [facility] [address] [place] [address] Dr. Get Paytonosinophils/100 WBC (Bld)0.2 %Critically low0.9-7.0The [facility] HospitalComment on above:Performed By: #### CMP #### [facility] [address] [place] [address] Dr. Get Paytonrythrocyte distribution width (RBC) [Ratio]13.1 %Cbdnha30.0-15.0 [facility] For RehabilitationComment on above:Performed By: #### CMP #### [facility] [address] [place] [address] Dr. Get WhittenHematocrit (Bld) [Volume fraction]41.5 %Critically low42.0-54.0 The [facility] HospitalComment on above:Performed By: #### CMP #### [facility] [address] [place] [address] Dr. Get WhittenHemoglobin (Bld) [Mass/Vol]14.4 g/nOWwjrtu02.0-18.0The [facility] HospitalComment on above:Performed By: #### CMP #### [facility] [address] [place] [address] Dr. Get Sanford #0.12 10e3/ulCritically high0.00-0.03The [facility] Comment on above:Performed By: #### CMP #### [facility] [address] [place] [address] Dr. Get Sanford %1.1 %Critically high0.0-0.5The [facility] HospitalComment on above:Performed By: #### CMP #### [facility] [address] [place] [address] Dr. Get Otoole #2.3 103/ulNormal1.2-3.8The [facility] HospitalComment on above:Performed By: #### CMP #### [facility] [address] [place] [address] Dr. Get Ramirezhocytes/100 WBC (Bld)20.9 %Xdoqqo62.5-60.0[facility] on above:Performed By: #### CMP #### [facility] [address] [place] [address] Dr. Get HeadUAL DIFF REQNONormalThe [facility] HospitalComment on above: Performed By: #### CMP #### [facility] [address] [place] [address] Dr. Get Manley (RBC) [Entitic mass]37.1 pgCritically high25.9-34.0The [facility] HospitalComment on above:Performed By: #### CMP #### [facility] [address] [place] [address] Dr. Get Fried (RBC) [Mass/Vol]34.7 g/qLCklgkn51.9-35.2The [facility] HospitalComment on above:Performed By: #### CMP #### [facility] [address] [place] [address] Dr. Get Fried (RBC) [Entitic vol]107.0 fLCritically high80.0-94.0The [facility] HospitalComment on above:Result Comment: 1+ macrocytosisPerformed By: #### CMP #### [facility] [address] [place] [address] Dr. Get Bill #0.7 103/ulNormal0.3-0.8The [facility] HospitalComment on above:Performed By: #### CMP #### [facility] [address] [place] [address] Dr. Get Lockettocytes/100 WBC (Bld)6.3 %Normal1.7-12.0[facility] Comment on above:Performed By: #### CMP #### [facility] [address] [place] [address] Dr. Get Falcon #7.7 103/ulCritically high1.4-6.5The [facility] Comment on above:Performed By: #### CMP #### [facility] [address] [place] [address] Dr. Get Andersonutrophils/100 WBC (Bld)71.1 %Ygwwho91.0-75.0The [facility] HospitalComment on above:Performed By: #### CMP #### [facility] [address] [place] [address] Dr. Get Hanleylet mean volume (Bld) [Entitic vol]8.6 fLCritically low 9.5-13.5The [facility] HospitalComment on above:Performed By: #### CMP #### [facility] [address] [place] [address] Dr. Get WhittenPLT238 103/mxUvavma408-142Taa [facility] HospitalComment on above: Performed By: #### CMP #### [facility] [address] [place] [address] Dr. Get WhittenRBC3.88 106/ulCritically low4.70-6.10The [facility] HospitalComment on above:Performed By: #### CMP #### [facility] [address] [place] [address] Dr. Get WhittenWBC10.8 103/ulNormal4.0-11.0The [facility] HospitalComment on above:Performed By: #### CMP #### [facility] [address] [place] [address] Dr. Get WhittenCovid-19 PCR (CVDTBH)on 68-73-9170LYXJ-CoV-2 (COVID-19) RNA ASHLEE+probe Ql (Unsp spec)Not detectedNormalNOT DETECTEDThe [facility] Comment on above:Result Comment: When diagnostic [...] for this test is supported by the Orthodontist Assistant of Health and Human Service's declaration that [...] used).Performed By: #### CMP, HSTROPN, BNP #### [facility] [address] [place] [address] Dr. Get VickF 14(COMP METB)on 58-35-3153Ucuyjpp [Mass/Vol]4.0 g/dLNormal 3.4-5.0The [facility] HospitalComment on above:Performed By: #### CMP, HSTROPN, BNP #### [facility] [address] [place] [address] Dr. Get WhittenAlbumin/Globulin [Mass ratio]1.0 {ratio}NormalThe [facility] HospitalComment on above:Performed By: #### CMP, HSTROPN, BNP #### [facility] [address] [place] [address] Dr. Get MartinezP [Catalytic activity/Vol]90 U/NUmjgld42-512Xcl [facility] HospitalComment on above:Performed By: #### CMP, HSTROPN, BNP #### [facility] [address] [place] [address] Dr. Get MartinezT [Catalytic activity/Vol]27 U/VTafjpg25-62Fgm [facility] HospitalComment on above:Performed By: #### CMP, HSTROPN, BNP #### [facility] [address] [place] [address] Dr. Get Crow gap [Moles/Vol]12.6 mmol/LNormalThe [facility] Comment on above:Performed By: #### CMP, HSTROPN, BNP #### [facility] [address] [place] [address] Dr. Get WhittenAST [Catalytic activity/Vol]16 U/RWpydgm96-13Xwx [facility] Centerment on above:Performed By: #### CMP, HSTROPN, BNP #### [facility] [address] [place] [address] Dr. Get WhittenBilirubin [Mass/Vol]0.4 mg/dLNormal0.2-1.0The [facility] Comment on above:Performed By: #### CMP, HSTROPN, BNP #### [facility] [address] [place] [address] Dr. Get WhittenCalcium [Mass/Vol]8.4 mg/dLCritically low8.5-10.1The [facility] HospitalComment on above:Performed By: #### CMP, HSTROPN, BNP #### [facility] [address] [place] [address] Dr. Get WhittenChloride [Moles/Vol]100 mmol/SKgjoet17-319Lov [facility] Comment on above:Performed By: #### CMP, HSTROPN, BNP #### [facility] [address] [place] [address] Dr. Gte WhittenCO2 [Moles/Vol]25.1 mmol/BYclyyy62.0-32.0The [facility] Comment on above:Performed By: #### CMP, HSTROPN, BNP #### [facility] [address] [place] [address] Dr. Get WhittenCreatinine [Mass/Vol]1.20 mg/dLNormal0.70-1.30The [facility] HospitalComment on above:Performed By: #### CMP, HSTROPN, BNP #### [facility] [address] [place] [address] Dr. Get PaytonGFR-AF DOMINICAN>60Normal>=60The [facility] Medical Centerment on above:Performed By: #### CMP, HSTROPN, BNP #### [facility] [address] [place] [address] Dr. Get PaytonGFR-NON AF DOMINICAN>60Normal>=60The [facility] HospitalComment on above:Performed By: #### CMP, HSTROPN, BNP #### [facility] [address] [place] [address] Dr. Get WhittenGlobulin (S) [Mass/Vol]4.0 g/dLNormalThe [facility] HospitalComment on above:Performed By: #### CMP, HSTROPN, BNP #### [facility] [address] [place] [address] Dr. Get WhittenGlucose [Mass/Vol]110 mg/dLCritically fvdz97-747Qfq [facility] HospitalComment on above:Performed By: #### CMP, HSTROPN, BNP #### [facility] [address] [place] [address] Dr. Get WhittenPotassium [Moles/Vol]4.7 mmol/LNormal3.5-5.1The [facility] Comment on above:Performed By: #### CMP, HSTROPN, BNP #### [facility] [address] [place] [address] Dr. Get WhittenProtein [Mass/Vol]8.0 g/dLNormal6.4-8.2The [facility] Comment on above:Performed By: #### CMP, HSTROPN, BNP #### [facility] [address] [place] [address] Dr. Get WhittenSodium [Moles/Vol]133 mmol/LCritically gwz202-559Ypf [facility] HospitalComment on above:Performed By: #### CMP, HSTROPN, BNP #### [facility] [address] [place] [address] Dr. Get WhittenUrea nitrogen [Mass/Vol]7.0 mg/dLNormal7.0-18.0[facility] For RehabilitationComment on above:Performed By: #### CMP, HSTROPN, BNP #### [facility] [address] [place] [address] Dr. Get De Jesus nitrogen/Creatinine [Mass ratio]5.8 mg/mgNormCleveland Clinic Medina HospitalComment on above:Performed By: #### CMP, HSTROPN, BNP #### [facility] [address] [place] [address] Dr. Get LayIMErell 85-96-4156VXE Coag (PPP) [Relative time]{INR}NormalThe [facility] HospitalComment on above:Performed By: #### CVDTBH #### [facility] [address] [place] [address] Dr. Get Monteiro GUIDELINESSEE BELOWCrystal Clinic Orthopedic CenterComment on above:Result Comment: DESIRED INR: 2.0 - 3.0 CONDITIONS NOT LISTED BELOW 2.5 - 3.5 FOR PROSTHETIC HEART VALVE REPLACEMENT 2.5 - 3.5 RECURRENT THROMBOSIS Performed By: #### CVDTBH #### [facility] [address] [address] [address] Gte WhittenPT Coag (PPP) [Time]9.8 sNormal9.0-11.6The [facility] Comment on above:Performed By: #### CVDTBH #### [facility] [address] [place] [address] Dr. Get Henley 03-03-1759vIFS Coag (Bld) [Time]28.5 fSewrwl32.3-36.2[facility] For RehabilitationComment on above:Performed By: #### CMP #### [facility] [address] [place] [address] Dr. Get Charles, HIGH SENSITIVITYon 82-01-2297OKKVMO2.1 pg/mLNormal 4.0-76.1The [facility] HospitalComment on above:Result Comment: CUT-OFF POINTS HAVE BEEN ESTABLISHED BASED ON THE FOURTH UNIVERSAL DEFINITIONS OF MYOCARDIAL INFARCTION. THE UPPER REFERENCE LIMIT (URL) OF TROPONIN, DEFINED THE 99TH PERCENTILE OF cTnI DISTRIBUTION IN A REFERENCE POPULATION, HAS BEEN CONFIRMED THE DECISION THRESHOLD FOR CA DIAGNOSIS.Performed By: #### CMP, HSTROPN, BNP #### [facility] [address] [place] [address] Dr. Get WhittenXR CHEST 1 Von 41-14-6941WQ CHEST 1 VEXAMINATION: XR CHEST 1 V [...] authenticated by: JULIO CESAR BUTCHER Date: 2022-01-09 18:21NormSt. [facility] of [facility] Hospital HospitalCoding Summary.on 43-34-6266Zsrkgq Summary.CODING DATE: 12/18/2018 FINAL [facility] STATUS: Home (Routine DC) PAYOR: Commercial Insurance APC DESCRIPTION 5[address] [facility] Eye Procedures ADMIT DX: REASON FOR VISIT DX: H26.492 Other secondary cataract, left eye FINAL DX: PRINCIPAL: H26.492 Other secondary cataract, left eye SECONDARY: PYMT PROC APC STAT DESCRIPTION DOCTOR NAME DATE 56063 5749 T Discission of secondary Darnell Rick DO [...] By: Verona Woodward Date Saved: 12/18/2018 10:51 [facility] Vital Signs Date TimeVital SignValuePerforming GvuiuniqiIymmbrcz46-33-8746 11:17-0400Body vsfdye211.88 cmPee Lakhani MD Work Phone: [phone]08-20-2025 11:17-0400 Body mass index (BMI) [Ratio]28.4 kg/l3PcvjcjwPee Lakhani MD Work Phone: [phone]08-20-2025 11:17-0400 Body ktunhs45 kgPee Lakhani MD Work Phone: [phone])[facility]1990[facility]08-14-2025 11:34-0400 Diastolic blood cofgwxdr56 mm[Hg]Pee Lakhani MD Work Phone: [phone]08-14-2025 11:34-0400 Heart rate60 /Galo Lakhani MD Work Phone: [phone]08-14-2025 11:34-0400 Respiratory rate15 /Galo Lakhani MD Work Phone: 1(967)[facility]1990[facility]08-14-2025 11:34-0400 SaO2% (BldA) [Mass fraction]97 %Pee Lakhani MD Work Phone: [phone])[address]08-14-2025 11:34-0400 Systolic blood syosiwsi435 mm[Hg]Pee Lakhani MD Work Phone: 1([phone] [place], [place] 9837108-14-2025 04:26-0400 Body gctsev39 kgPee Lakhani MD Work Phone: [phone])[address] [place], [place] 5476508-14-2025 04:00-0400 Body etstelqysea71.6 [degF]Pee Lakhani MD Work Phone: [phone])[address] [place], [place] 5476508-12-2025 08:12-0400 Body sddqef711.88 cmPee Lakhani MD Work Phone: 1(419)[address]06-01-2025 08:24-0400 Body bmskhndydnj46.4 [degF]Pee Lakhani MD Work Phone: 1(663)[address] [place], [place] 5476506-01-2025 08:24-0400 Diastolic blood vkbgokcu16 mm[Hg]Pee Lakhani MD Work Phone: 1(222)[address] [place], [place] 5476506-01-2025 08:24-0400 Heart rate73 /Galo Lakhani MD Work Phone: 1(419)[address] [place], [place] 5476506-01-2025 08:24-0400 Respiratory rate20 /Galo Lakhani MD Work Phone: 1(888)[address] [place], [place] 5476506-01-2025 08:24-0400 SaO2% (BldA) [Mass fraction]100 %Pee Lakhani MD Work Phone: 1(761)[address] [place], [place] 5476506-01-2025 08:24-0400 Systolic blood mm[Hg]Pee Lakhani MD Work Phone: 1(216)[address] [place], [place] 5476506-01-2025 05:53-0400 Body .4 kgPee Lakhani MD Work Phone: 1(189)[address] [place], [place] 5476505-29-2025 11:01-0400 Body eovxyq634.42 cmPee Lakhani MD Work Phone: [phone])[address]05-21-2025 15:17-0400 Diastolic blood fuaasxkt50 mm[Hg]Pee Lakhani MD Work Phone: 1(852)[address] [place], [place] 5476505-21-2025 15:17-0400 Heart rate88 /Galo Lakhani MD Work Phone: 1(862)[address]05-21-2025 15:17-0400 Respiratory rate16 /Galo Lakhani MD Work Phone: 1(542)[address]05-21-2025 15:17-0400 SaO2% (BldA) [Mass fraction]99 %Pee Lakhani MD Work Phone: [phone])[address]05-21-2025 15:17-0400 Systolic blood clcphycr444 mm[Hg]Pee Lakhani MD Work Phone: [phone])[address]05-21-2025 12:37-0400 Body ngupouxpmjn44.8 [degF]Pee Lakhani MD Work Phone: 1(203)[address]05-21-2025 06:33-0400 Body ouncuf57.5 kgPee Lakhani MD Work Phone: 1(725)[address]05-20-2025 16:50-0400 Inhaled oxygen flow rate8 L/Galo Lakhani MD Work Phone: [phone])[address]05-20-2025 13:45-0400 Body .42 cmPee Lakhani MD Work Phone: [phone] [place] [address] Encounters Encounter DateEncounter TypeCare ProviderFacilityStart: 05-22-2025 End: 08-01-9361ympnjsfaeiTAZEGTriHealthtart: 05-22-2025 End: 70-93-8791Ywfzfkfkf for other preprocedural examinationSBROADVIEWR [facility] Hospitaltart: 05-13-2025 End: 42-34-6551lpljmgvzuuYnrclwv M Hoy MD Work Phone: [phone]-Oegwknvcm[address] [place] [address] OrthopedicsStart: 05-13-2025 End: 52-93-2988Potftsu encounter procedureJumando Ceja [facility] Orth[facility] Work Phone: Start: 66-35-0683cvsfhjiwqkPKGXH GRUBBUniFort Hamilton Hospitaltart: 04-24-2025 End: 63-20-9256Mqmedp [facility] Work Phone: MELODIE Christian DermatologyStart: 04-24-2025 End: 19-53-5230Oypttn [facility] Work Phone: NOMS Christian DermatologyStart: 04-24-2025 End: 32-47-3034Otoudz outpatient visit [facility] Work Phone: NOM[facility] Christian DermatologyComment on above:Stasis dermatitis of both legs (Primary Dx); Encounter for removal of sutures; Rash and other nonspecific skin eruptionStart: 04-24-2025 End: 12-82-2091tuvnulnpkqXSMSO [facility] CENTERMNot AvailableStart: 04-13-2025 End: 93-88-9211Qigbqs [facility] Work Phone: N[facility] Christian DermatologyStart: 04-13-2025 End: 48-21-9796Zzlvow [facility] Work Phone: N[facility] Christian DermatologyStart: 04-13-2025 End: 77-36-4670Thqbplg [facility] procedureHor[facility] Work Phone: NOM[facility] Christian DermatologyComment on above:Rash and other nonspecific skin eruptionStart: 04-13-2025 End: 63-78-8119ucpmdoexuiXDRTB NORTHEIMNot AvailableStart: 03-12-6965pxwozbwuer JYOTI GRUBBUniFort Hamilton Hospitaltart: 03-06-2025 End: 17-50-3151Ahuzmy [facility] PA Work Phone: NOM[facility] Christian DermatologyStart: 03-06-2025 End: 53-46-1362Dmzwxw [facility] Work Phone: MELODIE Jerryusky DermatologyStart: 03-06-2025 End: 91-61-3448Wzvxbu outpatient new 30 minutesRylemarcella Jessika PA Work Phone: noMS Christian DermatologyComment on above:Rash and other nonspecific skin eruption (Primary Dx)Start: 03-06-2025 End: 56-64-5691wvewzxwneaXNCXY NORTHEIMNot AvailableStart: 03-04-2025 End: 23-10-0741wifvdbsrhnWuxcjag M Hoy MD Work Phone: [facility] Work Phone: Start: 03-04-2025 End: 07-92-6293Hrhjlbw encounter procedureJustin A [facility] Work Phone: Start: 02-24-2025 End: 03-08-5175yjigxnxastQujtfoq BlankFacility:[facility] Start: 02-24-2025 End: 37-45-9449Mkxsdoaaho and management of inpatientJustin Samra Ceja [address] Surgical Work Phone: Start: 02-24-2025 End: 01-36-4862ugcctpoxmua encounterPee Lakhani MD Work Phone: [phone] [place] [address] Work Phone: Start: 62-63-6074Mxl-patient / Non-visitMiclaura Huang MD-[facility] Infect Dis Work Phone: Start: 24-69-8016ekdukptxjgLDOK [facility] Hospitaltart: 02-11-2025 End: 29-53-8146kdswmirbdvOgnuiyx M Hoy MD Work Phone: [facility] Work Phone: Start: 02-11-2025 End: 16-87-2343Frtesid encounter procedureJustin A [facility] Work Phone: Start: 02-06-2025 End: 53-14-8110Avddhsk encounter procedureJumando Ceja DO-Pre-Surgical Testing Work Phone: Start: 02-06-2025 End: 53-22-2850ybfwghnemcVrxjihz M Hoy MD Work Phone: [facility] Work Phone: Start: 80-59-5859Ytdnmptoh for preprocedural laboratory examinationJumando CejaWinter Haven Hospital Physician GroupStart: 07-25-0738ypquirnsjdUZEJN GRUBBUniFort Hamilton Hospitaltart: 01-12-2025 End: 14-40-7524hgjdjststtJwtnihb M Hoy MD Work Phone: [facility] Work Phone: Start: 01-12-2025 End: 69-72-2850Nhjkqww encounter procedureJumando Ceja DO-[facility] Orthopedics Work Phone: Start: 12-22-2024 End: 44-72-9736fadztlizkhDudcwfg M Hoy MD Work Phone: [facility] Work Phone: Start: 12-22-2024 End: 59-96-9746Ldxqedx encounter procedurePee Lakhani MD Work Phone: [facility] Work Phone: Start: 53-92-6315Elk-patient / Non-visitPee Lakhani MD Work Phone: [facility] Work Phone: Start: 28-88-5047Cui-patient / Non-visitPee Lakhani MD Work Phone: [facility] Work Phone: Start: 12-03-2024 End: 64-52-9618Mkoyrmrhne and management of inpatientPee Lakhani MD Work Phone: [facility] Work Phone: Start: 47-47-8094Vyt-patient / Non-visitPee Lakhani MD Work Phone: [facility] Physician [facility] Work Phone: Start: 21-54-3887Djk-patient / Non-visitPee Lakhani MD Work Phone: [facility] Physician [facility] Orth[facility] Work Phone: Start: 12-01-2024 End: 95-97-9946Beyhqdadgs and management of inpatientPee Lakhani MD Work Phone: [facility] Work Phone: Start: 39-83-0726eazlqnuqmvVOSGKettering Health Miamisburgtart: 87-75-1112bquxlkhsxxQDWOMEast Liverpool City Hospitaltart: 10-01-2024 End: 00-66-7067zqsydwjadcMJSRNTriHealthtart: 92-79-9824oqylgcwkxdHQAFKettering Health Daytontart: 29-36-9087perfosesvvGYWHKettering Health Miamisburgtart: 53-48-9355qbdgnuoqteRSIVDEast Liverpool City Hospitaltart: 01-08-2023 End: 16-81-0268ttivilufhgDyekhbi Vytautas Giedraitis MDFacility:PM [facility] Start: 12-25-2022 End: 39-96-0743domibaycvhEvclwez Vytautas Giedraitis MDFacility:PM [place] Start: 11-27-2022 End: 25-92-0262ofsafjyqnmFG PEE LAKHANI .Facility:C3Gmjcx: 11-24-2022 End: 84-85-9592saaqgesukjGJ PEE LAKHANI .Facility:M1Imfmp: 10-27-2022 End: 23-31-9765curiwkoamxBL ZAIRE SIS .Facility:A3Frmhj: 10-23-2022 End: 49-12-9799fiogwhvvplOX PEE HOY .Facility:Y0Gcthg: 81-99-1063yjvtmfxlrm DR PEE HOY .Facility:H9Ltmxc: 79-15-4152nfvvtuhmzpDU PEE HOY . Facility:B6Iygrz: 76-73-5570yrmgjzctumQL PEE HOY .Facility:V6Ivsqm: 55-24-1007qaxddnduzaUF PEE HOY .Facility:P0Osfbq: 04-15-2022 End: 47-85-5027rwjioeqvwoSG PEE HOY .Facility:T6Rdupm: 03-29-2022 End: 70-63-1134vbiavxpbrwBK PEE HOY .Facility:B9Frxwk: 03-27-2022 End: 25-96-0407Tkbcdzschx and management of inpatientDR PEE HOY .Facility:H1 Start: 03-23-2022 End: 21-44-9105wmokequwcbMT PEE HOY .Facility:X0Soglj: 03-17-2022 End: 75-97-5142nevgqakpjhIS PEE HOY .Facility:V6Knknv: 01-24-2022 End: 20-94-9698qtmiqnbjdmAD PEE HOY .Facility:B3Tlcse: 01-09-2022 End: 27-75-5483vxpzzdzjixVM ZAIRE SIS .Facility: Procedures DateProcedureProcedure DetailPerforming ClinicianStart: 89-26-8442LMYJ / NAIL BIOPSYRylee Eduargrandview medical center GIS[place] Work Phone: Start: 50-60-5931Dflmemkg of left total hip arthroplastyPee Lakhani MD Work Phone: Start: 84-87-7826Ltvny X-ray of right shoulderDodalia Lakhani MD Work Phone: Start: 49-67-9196Gnhbjp scan of lower limb veins Pee Lakhani MD Work Phone: Start: 16-01-5448Vbogtjup screenDougsusan BowersyComment on above:Result Comment: PERFORMED BY: [facility] [place] [address] PATHOLOGIST [employer] CHACORTA DE DIOS M.D.Start: 71-86-5069Hiuwe X-ray of right hipDougsusan Lesvia CARD Work Phone: Start: 02-58-2101Sxgol X-ray of right hipDodalia Lesvia CARD Work Phone: Plan of Treatment DateCare ActivityDetailAuthorStart: 06-25-2025 End: 19-37-8640Psacudl encounter gxrmfefxn02/11/2025 10:50 AM EST Office [facility] [address] [place], [id number] Frances Rosen PA [address] [place] [phone] [facility] JerryBlackville DermatologyStart: 04-24-2025 End: 80-83-2959Aimeabo encounter procedureNOMS Christian DermatologyComment on above:ArrivedStart: 04-13-2025 End: 31-95-3278Ddoysqu encounter procedureNOMS Christian DermatologyComment on above:ArrivedStart: 03-06-2025 End: 42-60-8534Wuvwlqh encounter pttosntnk47/22/2025 12:20 PM EDT Office Visit [facility] [address] [place], [id number] Frances Rosen PA [address] [place] [address] ArrivedNOMS Purdyy DermatologyComment on above:ArrivedStart: 65-21-6431JkvxtdjqmWood County Hospitaltart: 95-69-5729Awpxobhf to infectious diseases physicianWood County Hospitaltart: 32-75-5128Wncltygy admissionWood County Hospitaltart: 44-35-3762AhxyqklkuWood County Hospitaltart: 57-41-2747Xxsys X-ray of right shoulderXR shoulder RT min 2V*[facility]: 45-30-6161GX Shoulder - right ViewsWood County Hospitaltart: 36-16-5739JxlgngajlWood County Hospitaltart: 43-05-9987Azmsgcdv admission [facility]: 23-61-5021Ieyjtizh to clinical management information systems director [facility]: 83-56-3324YrtnpckssWood County Hospitaltart: 69-71-9727Pfinuyux to rehabilitation physicianWood County Hospitaltart: 03-00-2902Etoluiug admissionWood County Hospitaltart: 58-82-9181LyumaxxwmcebSpqgqeqevWood County Hospitaltart: 86-63-2298Rneajkwrhdw of Right Hip Joint with Metal on Polyethylene Synthetic Substitute, Open ApproachReplacement of Right Hip Joint with Metal on Polyethylene Synthetic Substitute, Open ApproachTrihealth Good Samaritan HospitalDermatopathology examDermatopathology exam Pathology and Cytology Timed Rash and other nonspecific skin eruption ReleaseUpon Ordering for 1 Occurrences starting 04/13/2025[facility] Work Phone: comment on above:Release Upon Ordering for 1 Occurrences starting 04/13/2025Patient EducationA[facility] Work Phone: Patient referralAdena [facility] Work Phone: Payers DatePayer CategoryPayerPolicy [id number] Health Insurance2018[place] [id number] [id number] 2.16.840.1.315856.3.57[id number] 2.840.1.008371.3.57[id number] 2.840.1.887876.3.57[id number] 2.840.1.852385.3.57[id number] 2.840.1.670195.3.57[id number] 2.0.1.916415.3.57[id number] 2.0.1.131362.3.57[id number] 2.0.1.713567.3.579.[id number] 2.0.1.874550.3.57[id number] 2.0.1.019796.3.57[id number] 2.840.1.987515.3.579.[id number] 2.0.1.910083.3.57[id number] 2.840.1.843774.3.57[id number] 2.840.1.379087.3.579.[id number] 2.840.1.859173.3.57[id number] 2.840.1.876853.3.579.[id number] 2..840.1.490610.3.57[id number] 2.16.840.1.573925.3.579.2.0[id number] 2..840.1.463768.3.57[id number] 2.16.840.1.927831.3.579.2.1259 [id number] 1960Private Health Qkcujqpmk85074949144-65-9344Yrxa-[id number] 2.16.840.1.3[id number] 2.840.1.496628.3.579.2.531 [id number] 2.16.840.1.68[id number] 2.0.1.82124[id number] 2.0.1.121300.3.579.2.531 Social History DateTypeDetailFacilityStart: 12-04-2024 End: 69-99-9179Pvvkwxn smoking status NHISEx-smoker (finding)[facility]: 12-14-2024 End: 56-55-2041NspKpon (finding)[facility]: 12-19-3830Vlg [facility] [place] Campustart: 12-03-2024 End: 32-72-5525ZGUV Follow upSDOH [facility] Work Phone: Tobacco smoking status NHISTobacco smoking consumption unknownBL[facility] MOUNTAIN [facility], INC[facility] HealthcareStart: 44-95-1205Jbz assigned at birthNot on fileBLUE MOUNTAIN HOSPITAL, INC. HealthcareStart: 03-06-2025 End: 95-40-7020Ayhdwe identityNot on [facility] HealthcareHistory of tobacco use Current smokerBLUE MOUNTAIN HOSPITAL, INC. HealthcareHistory of tobacco useCigarette SmokerBLUE MOUNTAIN HOSPITAL, INC. HealthcareStart: 70-53-6010Qckpfye use and exposureSmokeless tobacco non-user [facility] HealthcareStart: 03-06-2025 End: 46-50-3634Ttmzlcifk beverage intakeCurrent drinker of alcohol (finding)[facility] HealthcareStart: 03-06-2025 End: 66-15-9389Whotump of Social functionNOMid [facility] Medical Equipment Procedure CodeEquipment CodeEquipment Original TextEquipment IdentifierDates 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Coated hip femur prosthesis, modular()[id number])[id number] FDAStart: 12-02-2024 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Acetabular shell ()[id number] FDAStart: 93-82-3501Ngatmacbl invasive revision of total replacement of hipCeramic femoral head prosthesis ()[id number] FDAStart: 43-11-1797Qemegzdmw invasive revision of total replacement of hipOrthopaedic bone screw, non-bioabsorbable, sterile()[id number])[id number](10)[id number] FDAStart: 95-45-5492Tsjmgswgn invasive revision of total replacement of hipOrthopaedic bone screw, non- bioabsorbable, sterile()[id number](17)[id number](12)[id number] FDAStart: 47-40-8710Jopfeeyue invasive revision of total replacement of hipNon-constrained polyethylene acetabular liner()[id number])[id number](02)[id number] FDAStart: 12-02-2024 Goals DatePatient GoalDesired Activity/State Functional Status QkfzJjizungizhEfbtiaGvxqnxul28-02-6074Trahjcwico statusPatient at Baseline [facility] Work Phone: [phone]hztbkte statusPatient is Progressing Toward [facility] Work Phone: [phone]irgxlz statusPatient at Baseline [facility] Work Phone: Mental Status UqyuIktbhreczdRwffvnPgobloxp26-69-7131Oykhpvfyk functionCognitive Status Patient at [facility] Work Phone: [phone]medolr functionCognitive Status Patient at [facility] Work Phone: 1([phone]) 954-975005231874-08-1573Ypkurzadb functionCognitive Status Patient at [facility] Work Phone: Clinical Notes 10-24-2022 to 05-22-2025 Note Date & TblvApgwAqfknooi59-29-1029 NoteUT Cardiology - [facility] Subjective Rehan Trejo is a [...] Drug use: Never Allergies Allergies Allergen Reactions [place] Anaphylaxis Penicillins Angioedema Procaine Unknown Medications Current Outpatient Medications: albuterol 90 mcg/actuation inhaler, Inhale 2 puff (more content not included)... [facility]10-10-2025 History of Present illness Narrative* GISSELLE [...] Posterior, Right Forearm - Posterior, Right UpperBack [place] patches and plaques Discussed with patient that [...] - Anterior, Right Lower Leg - Anterior [place] scaly plaques in areas of edema The [...] Next Visit: 4-6 weeks documented in this encounterScotland County Memorial HospitalFutrhvuvdr38-15-4534 History of Present illness Narrative* GISSELLE Vásquez [...] SKIN ERUPTION Left Lower Leg - Anterior [place] patches and plaques Biopsy today, see procedure [...] Next Visit: Suture removal documented in this encounterScotland County Memorial HospitalKdycecqzta58-80-6503 History of Present illness Narrative* GISSELLE Vásquez [...] Next Visit: 3-4 weeks documented in this encounterScotland County Memorial HospitalTcbzmkrutz05-31-8707 Progress note Author Ammon Huang [facility] HospitalNote Date/TimeAugust 2024 9:22[place] [id number] Infect. Disease Progress Note Signed Patient: Rehan Trejo MR#: [id number] : 1965 Acct:[id number] Age/Sex: 60 / M Adm Date: 5 Loc: Room: [address] [place] [address] Type: ADM INOo Attending Dr: Nishant Ceja [...] 100 Mg Capsule) 100 mg PO BID [facility] Stop: 02/23/26 20:59 Last Admin: 02/25/25 20:58 Dose: Not Given Ferrous Sulfate (Ferrous Sulfate 324 Mg Tablet.Dr) 324 mg PO BID.WITH.MEALS [facility] Stop: 02/23/26 16:59 Last Admin: 02/25/25 17:01 Dose: 324 mg Isosorbide Mononitrate (Isosorbide Mononitrate 24hr Er 30 Mg Tab.Er.24h) 30 mg PO QAM [facility] Stop: 02/25/26 08:59 Last Admin: 02/25/25 08:06 Dose: 30 mg Levothyroxine Sodium (Levothyroxine 125 Mcg Tablet) 250 mcg PO DAILY@0630 [facility] Stop: 02/25/26 09:59 Last Admin: 02/26/25 04:31 Dose: 250 mcg Melatonin (Melatonin 3 Mg Tablet) 12 mg PO QHS [facility] Stop: 02/25/26 21:59 Last Admin: 02/25/25 20:59 Dose: 12 mg Metoprolol Tartrate (Metoprolol Tartrate 50 Mg Tablet) 50 mg PO BID [facility] Stop: 02/25/26 08:59 Last Admin: 02/25/25 20:58 Dose: 50 mg Mineral Oil (Mineral Oil ([place]) 1 Each Enema) 1 each ID ONCE PRN PRN Reason: Constipation Morphine Sulfate [...] <Electronically signed by MD Ammon Huang> 02/26/25921 [facility] Work Phone: 1(980) 934-524008-14-2025 Progress note Author Nishant Ceja [facility] HospitalNote Date/TimeAugust 2024 9:04[place] [address] Orthopedic Progress Note Signed Patient: Rehan Trejo MR#: [id number] : 1965 Acct:[id number] Age/Sex: 60 / M Adm Date: 5 Loc: Room: 7C9530-9 Type: ADM INOo Attending Dr: Nishant Ceja [...] signed by Nishant Ceja DO> 02/26/25 0904 [facility] Work Phone: 1(243) 123-790108-14-2025 Discharge summary Author Nishant Ceja [facility] HospitalNote Date/TimeAugust 2024 8:40[place] [address] Discharge Summary Signed Patient: Rehan Trejo MR#: [id number] : 1965 Acct:[id number] Age/Sex: 60 / M Adm Date: 5 Loc: Room: [address] [place] [address]: Nishant Ceja DO Copies to: [...] feel free to call our office at [phone]. You are a priority of ours and we will not be upset with you if you call. Wewould much rather you call to confirmaspects of your recovery process as opposed to possibly hindering your recovery with inappropriate care. We are committed to providing you with the best care possible. Dr. Nishant Ceja [facility] [address] [place] [address] [email or web address] Instructions: Know your Meds, Drugs, Alcohol & [...] signed by Nishant Ceja DO> 02/26/25 0840 [facility] Work Phone: 1(524) 822-946108-14-2025 [place] [address] Infect. Disease Progress Note Signed Patient: Rehan Trejo MR#: Sandeep [id number] : 1965 Acct:[id number] Age/Sex: 60 / M Adm Date: 5 Loc: 4N Room: [address] [place] [address] Type: ADM INOo Attending Dr: Nishant Ceja [...] 100 Mg Capsule) 100 mg PO BID [facility] Stop: 02/23/26 20:59 Last Admin: 02/25/25 20:58 Dose: Not Given Ferrous Sulfate (Ferrous Sulfate 324 Mg Tablet.Dr) 324 mg PO BID.WITH.MEALS [facility] Stop: 02/23/26 16:59 Last Admin: 02/25/25 17:01 Dose: 324 mg Isosorbide Mononitrate (Isosorbide Mononitrate 24hr Er 30 Mg Tab.Er.24h) 30 mg PO QAM [facility] Stop: 02/25/26 08:59 Last Admin: 02/25/25 08:06 Dose: 30 mg Levothyroxine Sodium (Levothyroxine 125 Mcg Tablet) 250 mcg PO DAILY@0630 [facility] Stop: 02/25/26 09:59 Last Admin: 02/26/25 04:31 Dose: 250 mcg Melatonin (Melatonin 3 Mg Tablet) 12 mg PO QHS [facility] Stop: 02/25/26 21:59 Last Admin: 02/25/25 20:59 Dose: 12 mg Metoprolol Tartrate (Metoprolol Tartrate 50 Mg Tablet) 50 mg PO BID [facility] Stop: 02/25/26 08:59 Last Admin: 02/25/25 20:58 Dose: 50 mg Mineral Oil (Mineral Oil ([place]) 1 Each Enema) 1 each ID ONCE PRN PRN Reason: Constipation Morphine Sulfate [...] 17 Gm Powd.Pack) 17 gm PO DAILY [facility] Stop: 03/03/25 08:59 Last Admin: 02/25/25 [...] 0.4 Mg Cap.Er.24h) 0.4 mg PO DAILY [facility] Stop: 02/25/26 08:59 Last Admin: 02/25/25 08:06 Dose: 0.4 mg Temazepam (Temazepam 7.5 Mg Capsule) 7.5 mg PO QHS PRN PRN Reason: Insomnia Stop: 08/22/25 15:37 Last Admin: 02/25/25 21:00 Dose: 7.5 mg Tizanidine HCl (Tizanidine 4 Mg Tablet) 4 mg PO HS [facility] Stop: 02/25/26 21:59 Last Admin: 02/25/25 20:59 Dose: 4 mg Topiramate (Topiramate 100 Mg Tablet) 100 mg PO QAM [facility] Stop: 02/25/26 08:59 Last Admin: 02/25/25 08:14 Dose: 100 mg Topiramate (Topiramate 100 Mg Tablet) 200 mg PO HS [facility] Stop: 02/25/26 21:59 Last Admin: 02/25/25 [...] Ammon Huang MD 02/26/25917 Signed By: 02/26/25921 [facility]08-14-2025 [place] [address] Orthopedic Progress Note Signed Patient: Rehan Trejo MR#: [id number] : 1965 Acct:[id number] Age/Sex: 60 / M Adm Date: 5 Loc: Room: [address] [place] [address] Type: ADM INOo Attending Dr: Nishant Ceja [...] Ceja DO 02/26/2536 Signed By: 02/26/25 0904 [facility]08-14-2025 [place] [id number] Discharge Summary Signed Patient: Rehan Trejo MR#: [id number] : 1965 Acct:[id number] Age/Sex: 60 / M Adm Date: 5 Loc: Room: 2P4705-[address]: Nishant Ceja DO Copies to: [...] feel free to call our office at [phone]. You are a priority of ours and we will not be upset with you if you call. Wewould much rather you call to confirmaspects of your recovery process as opposed to possibly hindering your recovery with inappropriate care. We are committed to providing you with the best care possible. Dr. Nishant Ceja [facility] [address] [place] [address] [email or web address] Instructions: Know your Meds, Drugs, Alcohol & [...] DO 02/26/25 0838 Signed By: 02/26/25 0840 [facility]08-13-2025 Progress note Author Nishant Ceja [facility] HospitalNote Date/TimeAugust 2024 10:09am [place] [address] Orthopedic Progress Note Signed Patient: Rehan Trejo MR#: Sandeep [id number] : 1965 Acct:[id number] Age/Sex: 60 / M Adm Date: 5 Loc: 4N Room: 0Q0970-0 Type: ADM INOo Attending Dr: Nishant Ceja [...] 53.6 49.4 Lymph % (Auto) 29.7 31.0 [place] % (Auto) 8.8 10.5 Eos % (Auto) 6.7 8.6 Baso % (Auto) 1.2 0.5 Nucleat RBC Rel Count 0.2 0.1 Neut # (Auto) 4.7 3.4 Lymph # (Auto) 2.6 2.1 [place] # (Auto) 0.8 0.7 Eos # (Auto) [...] <Electronically signed by Nishant Ceja DO> 02/25/25 6369 [facility] Work Phone: 1(785) 305-922508-13-2025 Progress note Author Ammon Huang [facility] HospitalNote Date/TimeAugust 2024 8:54[place] [address] Infect. Disease Progress Note Signed Patient: Rehan Trejo MR#: [id number] : 1965 Acct:[id number] Age/Sex: 60 / M Adm Date: 5 Loc: Room: [address] [place] [address] Type: ADM INOo Attending Dr: Nishant Ceja [...] 100 Mg Capsule) 100 mg PO BID [facility] Stop: 02/23/26 20:59 Last Admin: 02/25/25 08:06 Dose: Not Given Ferrous Sulfate (Ferrous Sulfate 324 Mg Tablet.Dr) 324 mg PO BID.WITH.MEALS [facility] Stop: 02/23/26 16:59 Last Admin: 02/25/25 08:05 Dose: 324 mg Isosorbide Mononitrate (Isosorbide Mononitrate 24hr Er 30 Mg Tab.Er.24h) 30 mg PO QAM [facility] Stop: 02/25/26 08:59 Last Admin: 02/25/25 08:06 Dose: 30 mg Levothyroxine Sodium (Levothyroxine 125 Mcg Tablet) 250 mcg PO DAILY@0630 [facility] Stop: 02/25/26 09:59 Melatonin (Melatonin 3 Mg Tablet) 12 mg PO QHS [facility] Stop: 02/25/26 21:59 Metoprolol Tartrate (Metoprolol Tartrate 50 Mg Tablet) 50 mg PO BID [facility] Stop: 02/25/26 08:59 Last Admin: 02/25/25 08:05 Dose: 50 mg Mineral Oil (Mineral Oil ([place]) 1 Each Enema) 1 each ID ONCE PRN PRN Reason: Constipation Morphine Sulfate [...] 17 Gm Powd.Pack) 17 gm PO DAILY [facility] Stop: 03/03/25 08:59 Last Admin: 02/25/25 [...] 0.4 Mg Cap.Er.24h) 0.4 mg PO DAILY [facility] Stop: 02/25/26 08:59 Last Admin: 02/25/25 08:06 Dose: 0.4 mg Temazepam (Temazepam 7.5 Mg Capsule) 7.5 mg PO QHS PRN PRN Reason: Insomnia Stop: 08/22/25 15:37 Tizanidine HCl (Tizanidine 4 Mg Tablet) 4 mg PO HS [facility] Stop: 02/25/26 21:59 Topiramate (Topiramate 100 Mg Tablet) 100 mg PO QAM [facility] Stop: 02/25/26 08:59 Last Admin: 02/25/25 08:14 Dose: 100 mg Topiramate (Topiramate 100 Mg Tablet) 200 mg PO HS [facility] Stop: 02/25/26 21:59 Tramadol HCl (Tramadol 50 Mg Tablet) 50 mg PO Q6H PRN PRN Reason: Pain Scale 1 - 5 Stop: 08/22/25 15:37 Triamcinolone Acetonide (Triamcinolone 0.5% Cream 15 Gm Tube) 1 applic TOPICAL BID [facility] Stop: 02/24/26 11:29 Last Admin: 02/25/25 08:07 Dose: 1 applic A&P - Infectious Disease Assessment/Plan (1) Stasis dermatitis: Plan To be dc on triamcinolone cream and to use on the RLE BID for 2 weeks. Avoid scratching. Documented By: Ammon Huang MD 02/25/25 0818 Signed By: <Electronically signed by MD Ammon Huang> 02/25/25 0854 [facility] Work Phone: 1(670) 292-657508-13-2025 [place]anda [place] [id number] Orthopedic Progress Note Signed Patient: Rehan Trejo MR#: [id number] : 1965 Acct:[id number] Age/Sex: 60 / M Adm Date: 5 Loc: Room: [address] [place] [address] Type: ADM INOo Attending Dr: Nishant Ceja [...] 53.6 49.4 Lymph % (Auto) 29.7 31.0 [place] % (Auto) 8.8 10.5 Eos % (Auto) 6.7 8.6 Baso % (Auto) 1.2 0.5 Nucleat RBC Rel Count 0.2 0.1 Neut # (Auto) 4.7 3.4 Lymph # (Auto) 2.6 2.1 [place] # (Auto) 0.8 0.7 Eos # (Auto) [...] Ceja DO 02/25/25 1007 Signed By: 02/25/25 [facility]9 [facility]08-13-2025 [place] [address] Infect. Disease Progress Note Signed Patient: Rehan Trejo MR#: [id number] : 1965 Acct:[id number] Age/Sex: 60 / M Adm Date: 5 Loc: 4N Room: 5L7708-3 Type: ADM INOo Attending Dr: Nishant Ceja [...] 500 Mg Tablet) 500 mg PO BID.WITH.MEALS [facility] Stop: 02/23/26 16:59 Last Admin: 02/25/25 08:05 Dose: 500 mg Aspirin (Aspirin 81 Mg Tablet.) 81 mg PO BID [facility] Stop: 02/23/26 20:59 Last Admin: 02/25/25 08:05 Dose: 81 mg Atorvastatin Calcium (Atorvastatin 10 Mg Tablet) 10 mg PO HS [facility] Stop: 02/25/26 21:59 Calcium Carbonate (Calcium Carbonate/Vitamin D3 500 Mg/200 Unit Tablet) 1 tab PO BID [facility] Stop: 02/25/26 08:59 Last Admin: 02/25/25 08:14 Dose: 1 tab Diphenhydramine HCl (Diphenhydramine 25 Mg Capsule) 25 mg PO Q6H PRN PRN Reason: Itching Stop: 02/23/26 15:37 Docusate Sodium (Docusate 100 Mg Capsule) 100 mg PO BID [facility] Stop: 02/23/26 20:59 Last Admin: 02/25/25 08:06 Dose: Not Given Ferrous Sulfate (Ferrous Sulfate 324 Mg Tablet.) 324 mg PO BID.WITH.MEALS [facility] Stop: 02/23/26 16:59 Last Admin: 02/25/25 08:05 Dose: 324 mg Isosorbide Mononitrate (Isosorbide Mononitrate 24hr Er 30 Mg Tab.Er.24h) 30 mg PO QAM [facility] Stop: 02/25/26 08:59 Last Admin: 02/25/25 08:06 Dose: 30 mg Levothyroxine Sodium (Levothyroxine 125 Mcg Tablet) 250 mcg PO DAILY@0630 [facility] Stop: 02/25/26 09:59 Melatonin (Melatonin 3 Mg Tablet) 12 mg PO QHS [facility] Stop: 02/25/26 21:59 Metoprolol Tartrate (Metoprolol Tartrate 50 Mg Tablet) 50 mg PO BID [facility] Stop: 02/25/26 08:59 Last Admin: 02/25/25 08:05 Dose: 50 mg Mineral Oil (Mineral Oil ([place]) 1 Each Enema) 1 each ID ONCE PRN PRN Reason: Constipation Morphine Sulfate [...] 17 Gm Powd.Pack) 17 gm PO DAILY [facility] Stop: 03/03/25 08:59 Last Admin: 02/25/25 [...] 0.4 Mg Cap.Er.24h) 0.4 mg PO DAILY [facility] Stop: 02/25/26 08:59 Last Admin: 02/25/25 08:06 Dose: 0.4 mg Temazepam (Temazepam 7.5 Mg Capsule) 7.5 mg PO QHS PRN PRN Reason: Insomnia Stop: 08/22/25 15:37 Tizanidine HCl (Tizanidine 4 Mg Tablet) 4 mg PO HS [facility] Stop: 02/25/26 21:59 Topiramate (Topiramate 100 Mg Tablet) 100 mg PO QAM [facility] Stop: 02/25/26 08:59 Last Admin: 02/25/25 08:14 Dose: 100 mg Topiramate (Topiramate 100 Mg Tablet) 200 mg PO HS [facility] Stop: 02/25/26 21:59 Tramadol HCl (Tramadol [...] MD 02/25/25 0847 Signed By: 02/25/25 0854 [facility]08-12-2025 Consult note Author Ammon Huang [facility] HospitalNote Date/TimeAugust 2024 10:46am [place] [address] Infect. Disease Consult Note Signed Patient: Rehan Trejo MR#: [id number] : 1965 Acct:[id number] Age/Sex: 60 / M Adm Date: 5 Loc: Room: [address] [place] [address] Type: REG [facility] Attending Dr: Nishant Ceja DO Copies to: [...] Ringers) 1,000 mls @ 75 mls/hr IV .[id number] [facility] Stop: 02/23/26 15:44 Lactated Ringer's (Lactated Ringers) 1,000 mls @ 20 mls/hr IV .Q24H ONE Stop: 02/25/25 08:29 Last Infusion: 02/24/25 09:20 Dose: 20 mls/hr Mineral Oil (Mineral Oil ([place]) 1 Each Enema) 1 each ID ONCE PRN PRN Reason: Constipation Morphine Sulfate [...] / 100 mls/hr IV .Q24H ONE Rx#: [id number] Other: Weight 93.44 kg Date of Last [...] <Electronically signed by MD Ammon Huang> 02/24/25 3426 [facility] Work Phone: 1(885) 877-888708-12-2025 Evaluation note* Diagnosis Onset Date Resolution Status [...] post total hip replacement, rightnoneactiveOctober 2024 2:41pm [facility] Work Phone: 1(582) 780-859308-12-2025 History and physical note Author Nishant Ceja [facility] HospitalNote Date/TimeAugust 2024 9:35amCh[place] [address] Orthopedic Surgery H&P Signed Patient: Rehan Trejo MR#: [id number] : 1965 Acct:[id number] Age/Sex: 60 / M Adm Date: 5 Loc: CT Room: Type: [facility] Attending Dr: Nishant Ceja DO Copies [...] using some topical steroid cream without resolution [facility] Medical History (Updated 02/24/25 @ [...] signed by Nishant Ceja DO> 02/24/25 0935 [facility] Work Phone: 1(984) 546-388908-12-2025 [place] [address] Infect. Disease Consult Note Signed Patient: Rehan Trejo MR#: [id number] : 1965 Acct:[id number] Age/Sex: 60 / M Adm Date: 5 Loc: Room: [address] [place] [address] Type: REG [facility] Attending Dr: Nishant Ceja DO Copies to: [...] negative unless noted below or in HPI [facility] Medical History (Updated 02/24/25 @ [...] Ringers) 1,000 mls @ 75 mls/hr IV .[id number] CHRISTOPHER Stop: 02/23/26 15:44 Lactated Ringer's (Lactated Ringers) 1,000 mls @ 20 mls/hr IV .Q24H ONE Stop: 02/25/25 08:29 Last Infusion: 02/24/25 09:20 Dose: 20 mls/hr Mineral Oil (Mineral Oil ([place]) 1 Each Enema) 1 each ID ONCE PRN PRN Reason: Constipation Morphine Sulfate [...] 1 Tab Tablet) 2 tab PO DAILY [facility] Stop: 03/26/25 08:59 Sodium Chloride (Sodium [...] / 100 mls/hr IV .Q24H ONE Rx#: [id number] Other: Weight 93.44 kg Date of Last [...] MD 02/24/25 1040 Signed By: 02/24/25 1046 [facility]08-12-2025 [place] [address] Orthopedic Surgery H&P Signed Patient: Rehan Trejo MR#: [id number] : 1965 Acct:[id number] Age/Sex: 60 / M Adm Date: 5 Loc: CT Room: Type: [facility] Attending Dr: Nishant Ceja DO Copies [...] using some topical steroid cream without resolution [facility] Medical History (Updated 02/24/25 @ [...] DO 02/24/25 0933 Signed By: 02/24/25 0935 [facility]05-30-2025 Progress note Author Paco Jimenez [facility] HospitalNote Date/TimeMay 2024 1:16pm[place] [address] Physiatry(Rehab) Progress Note Signed Patient: Rehan Trejo MR#: [id number] : 1965 Acct:[id number] Age/Sex: 59 / M Adm Date: 5 Loc: Room: [address] [place] [address] Type: ADM IN Attending Dr: Paco Jimenez [...] at homecaring for his , mother and lhavks-qb-ddc. Shares insight into mechanism of injury of [...] mg 12/03/24 16:45 Bisacodyl 10 Mg Supp.Rect ID 12/03/25 16:44 DAILY PRN Constipation Budesonide/Formoterol Fumarate [...] 16:45 Docusate Enema 283 Mg/5 Ml Enema ID 12/03/25 16:44 DAILY PRN Constipation Isosorbide Mononitrate [...] at least 3 times weekly encounters with emblem drawer in for medical management and for plan of care review / changes. I spent 25 minutes for services, including fwxd-ja-jrkl encounter with the patient, discussion of the case, plan of care, and exam; and mxtqrgp-il-qvfs activities, such as reviewing pertinent sap consultant documentation, recent therapynotes, laboratory and radiology studies, and discussion of case with care team including physician, nursing, case briefer, and therapists. More than 50 % of time was spent on patient/family counseling or coordination ofcare. Documented By: Paco Jimenez MD 1315 Signed By: <Electronically signed by Paco Jimenez MD> 12/12/24 1316 [facility] Work Phone: 1(190) 505-692005-30-2025 [place] [id number] Physiatry(Rehab) Progress Note Signed Patient: Rehan Trejo MR#: [id number] : 1965 Acct:[id number] Age/Sex: 59 / M Adm Date: 5 Loc: Room: [address] [place] [address] Type: ADM IN Attending Dr: Paco Jimenez [...] at homecaring for his , mother and gjhufh-jn-yhs. Shares insight into mechanism of injury of [...] mg 12/03/24 16:45 Bisacodyl 10 Mg Supp.Rect ID 12/03/25 16:44 DAILY PRN Constipation Budesonide/Formoterol Fumarate [...] 16:45 Docusate Enema 283 Mg/5 Ml Enema ID 12/03/25 16:44 DAILY PRN Constipation Isosorbide Mononitrate [...] at least 3 times weekly encounters with emblem drawer in for medical management and for plan of care review / changes. I spent 25 minutes for services, including xdal-pf-yema encounter with the patient, discussion of the case, plan of care, and exam; and xfwrjrh-ge-thuz activities, such as reviewing pertinent sap consultant documentation, recent therapynotes, laboratory and radiology studies, and discussion of case with care team including physician, nursing, case briefer, and therapists. More than 50 % of time was spent on patient/family counseling or coordination ofcare. Documented By: Paco Jimenez MD 5 Signed By: 12/12/24 1316 [facility]05-30-2025 Radiology Diagnostic study note [facility] [address] Ultrasound Report Signed Patient: Rehan Trejo MR#: [id number] : 1965 Acct:[id number] Age/Sex: 59 / M ADM Date: 5 Loc: Room: [id number] Type: ADM IN Attending Dr: Paco Jimenez [...] Donnelly M.D. 12/12/2024 11:17 AM Dictation Location: [place] [address] Tech: Ana Rosa Yin Transcribed By: NORI 12/12/241116 Dictated By: Zaire Donnelly MD 12/12/241116 Signed By: 12/12/24 [facility] Work Phone: 1(575) 414-514205-29-2025 Progress note Author Reshma Marin [facility] HospitalNote Date/TimeMay 2024 5:24[place] [address] Hospitalist Progress Note Signed Patient: Rehan Trejo MR#: [id number] : 1965 Acct:[id number] Age/Sex: 59 / M Adm Date: 5 Loc: Room: [address] [place] [address] Type: ADM IN Attending Dr: Paco Jimenez [...] mg 12/03/24 16:45 Bisacodyl 10 Mg Supp.Rect ID 12/03/25 16:44 DAILY PRN Constipation Budesonide/Formoterol Fumarate [...] 16:45 Docusate Enema 283 Mg/5 Ml Enema ID 12/03/25 16:44 DAILY PRN Constipation Isosorbide Mononitrate 30 mg 12/04/24 09:00 12/11/24 07:59 Isosorbide Mononitrate 24hr Er 30 Mg Tab.Er.24h PO 12/04/25 08:59 30 mg QAM CHRISTOPHER Administration Lactulose 30 gm 12/03/24 16:45 Lactulose 20 Gm/30 Ml Udc PO 12/03/25 16:44 DAILY PRN Constipation Levothyroxine Sodium 250 mcg 12/04/24 06:30 12/11/24 05:50 Levothyroxine 125 Mcg Tablet PO 12/04/25 06:29 250 mcg DAILY.0630 CHRISTOPEHR Administration Melatonin 10 mg 12/03/24 22:00 12/10/24 [...] 2. Hyperlipidemia?atorvastatin 3. COPD/asthma?budesonide/formoterol 4. CAD history CA?isosorbide, metoprolol, aspirin 5. Hypothyroid?levothyroxine 6. BPH?tamsulosin 7. Seizures?Topiramate Documented By: Reshma Marin APRN 12/11/24 1633 Signed By: <Electronically signed by KB Marin> 12/11/24 1646 <Electronically signed by Connor Oliveros DO> 12/11/24 5244 [facility] Work Phone: 1(409) 180-801305-29-2025 [place] [address] Hospitalist Progress Note Signed Patient: Rehan Trejo MR#: [id number] : 1965 Acct:[id number] Age/Sex: 59 / M Adm Date: 5 Loc: 5T Room: [address] [place] [address] Type: ADM IN Attending Dr: Paco Jimenez [...] mg 12/03/24 16:45 Bisacodyl 10 Mg Supp.Rect ID 12/03/25 16:44 DAILY PRN Constipation Budesonide/Formoterol Fumarate [...] 16:45 Docusate Enema 283 Mg/5 Ml Enema ID 12/03/25 16:44 DAILY PRN Constipation Isosorbide Mononitrate [...] 2. Hyperlipidemia?atorvastatin 3. COPD/asthma?budesonide/formoterol 4. CAD history CA?isosorbide, metoprolol, aspirin 5. Hypothyroid?levothyroxine 6. BPH?tamsulosin 7. Seizures?Topiramate Documented By: Reshma Marin APRN 12/11/24 1633 Signed By: 12/11/24 1646 12/11/24 1724 [facility]05-29-2025 Progress note Author Paco Jimenez [facility] HospitalNote Date/TimeMay 2024 12:44pmCh[place] [address] Physiatry(Rehab) Progress Note Signed Patient: Rehan Trejo MR#: [id number] : 1965 Acct:[id number] Age/Sex: 59 / M Adm Date: 5 Loc: Room: 8V1398-6 Type: ADM IN Attending Dr: Paco Jimenez [...] at homecaring for his , mother and xdwkpo-oz-qjq. Shares insight into mechanism of injury of [...] mg 12/03/24 16:45 Bisacodyl 10 Mg Supp.Rect ID 12/03/25 16:44 DAILY PRN Constipation Budesonide/Formoterol Fumarate [...] 16:45 Docusate Enema 283 Mg/5 Ml Enema ID 12/03/25 16:44 DAILY PRN Constipation Isosorbide Mononitrate [...] at least 3 times weekly encounters with emblem drawer in for medical management and for plan of care review / changes. I spent 25 minutes for services, including iitq-zb-iwpe encounter with the patient, discussion of the case, plan of care, and exam; and lvyphqy-fy-mgie activities, such as reviewing pertinent sap consultant documentation, recent therapynotes, laboratory and radiology studies, and discussion of case with care team including physician, nursing, case briefer, and therapists. More than 50 % of [...] signed by MD ANÍBAL Tracy> 12/11/24 1151 [facility] Work Phone: 1(209) 465-128005-29-2025 [place] [address] Physiatry(Rehab) Progress Note Signed Patient: Rehan Trejo MR#: [id number] : 1965 Acct:[id number] Age/Sex: 59 / M Adm Date: 5 Loc: Room: [address] [place] [address] Type: ADM IN Attending Dr: Paco Jimenez [...] at homecaring for his , mother and bzqjaq-cx-npo. Shares insight into mechanism of injury of [...] mg 12/03/24 16:45 Bisacodyl 10 Mg Supp.Rect ID 12/03/25 16:44 DAILY PRN Constipation Budesonide/Formoterol Fumarate [...] 16:45 Docusate Enema 283 Mg/5 Ml Enema ID 12/03/25 16:44 DAILY PRN Constipation Isosorbide Mononitrate [...] at least 3 times weekly encounters with emblem drawer in for medical management and for plan of care review / changes. I spent 25 minutes for services, including frda-xy-smgs encounter with the patient, discussion of the case, plan of care, and exam; and mfezzgn-ki-hxxo activities, such as reviewing pertinent sap consultant documentation, recent therapynotes, laboratory and radiology studies, and discussion of case with care team including physician, nursing, case briefer, and therapists. More than 50 % of [...] 1127 Signed By: 12/11/24 1244 12/11/24 1151 [facility]05-28-2025 Progress note Author Gloria Arrington [facility] HospitalNote Date/TimeMay 2024 1:56pmCh[place] [address] Physiatry(Rehab) Progress Note Signed Patient: Rehan Trejo MR#: [id number] : 1965 Acct:[id number] Age/Sex: 59 / M Adm Date: 5 Loc: Room: [address] [place] [address] Type: ADM IN Attending Dr: Paco Jimenez [...] complicated by subcapital femoral neck fracture AVN. eRhan was examined this morning seatedupright on side of bed with physical therapy session in progress. Mentions responsibilities at homecaring for his , mother and wrenrt-vt-wmc. Shares insight into mechanism of injury of [...] mg 12/03/24 16:45 Bisacodyl 10 Mg Supp.Rect ID 12/03/25 16:44 DAILY PRN Constipation Budesonide/Formoterol Fumarate [...] 16:45 Docusate Enema 283 Mg/5 Ml Enema ID 12/03/25 16:44 DAILY PRN Constipation Doxycycline Hyclate [...] at least 3 times weekly encounters with emblem drawer in for medical management and for plan of care review / changes. I spent 19 minutes for services, including dlba-mw-ohau encounter with the patient, discussion of the case, plan of care, and exam; and imblzkz-fh-yigz activities, such as reviewing pertinent sap consultant documentation, recent therapynotes, laboratory and radiology studies, and discussion of case with care team including physician, nursing, case briefer, and therapists. More than 50 % of time was spent on patient/family counseling or coordination ofcare. <Statement entered by Paco Jimenez MD - 12/10/24 13:56> Patient was personally seen by me, Dr. Jimenez, on the day of encounter, reviewed the history and the relevant portions of the chart, including current orders, allied health and sap consultant notes, labs/imaging and performed ulloa elements of exam and I formulated the plan of care and facilitated the medical decision making. I completed a substantive portion of this encounter, the medical decision makingportion of this note in its entirety, including Allied health note review, nursing note review, sap consultant note review,discussion with nursing and case management, and more than 50% of my time was spent on counseling and coordination of care, time spent 20 minutes Documented By: Gloria Arrington APRN 12/10/24 0 959 Signed By: <Electronically signed by KB Arrington> 12/10/24 1003 <Electronically signed by Paco Jimneez MD> 12/10/24 1356 [facility] Work Phone: 1(523) 321-577605-28-2025 [place] [address] Physiatry(Rehab) Progress Note Signed Patient: Rehan Trejo MR#: [id number] : 1965 Acct:[id number] Age/Sex: 59 / M Adm Date: 5 Loc: Room: [address] [place] [address] Type: ADM IN Attending Dr: Paco Jimenez [...] at homecaring for his , mother and wwoevu-ha-cnw. Shares insight into mechanism of injury of [...] mg 12/03/24 16:45 Bisacodyl 10 Mg Supp.Rect ID 12/03/25 16:44 DAILY PRN Constipation Budesonide/Formoterol Fumarate [...] 16:45 Docusate Enema 283 Mg/5 Ml Enema ID 12/03/25 16:44 DAILY PRN Constipation Doxycycline Hyclate [...] at least 3 times weekly encounters with emblem drawer in for medical management and for plan of care review / changes. I spent 19 minutes for services, including jtjl-dv-jcrv encounter with the patient, discussion of the case, plan of care, and exam; and uxfdvil-bd-utcs activities, such as reviewing pertinent sap consultant documentation, recent therapynotes, laboratory and radiology studies, and discussion of case with care team including physician, nursing, case briefer, and therapists. More than 50 % of time was spent on patient/family counseling or coordination ofcare. Patient was personally seen by me, Dr. Jimenez, on the day of encounter, reviewed the history and the relevant portions of the chart, including current orders, allied health and sap consultant notes, labs/imaging and performed ulloa elements of exam and I formulated the plan of care and facilitated the medical decision making. I completed a substantive portion of this encounter, the medical decision makingportion of this note in its entirety, including Allied health note review, nursing note review, sap consultant note review,discussion with nursing and case management, and more than 50% of my time was spent on counseling and coordination of care, time spent 20 minutes Documented By: Gloria Arrington APRN 12/10/24 0 959 Signed By: 12/10/24 1003 12/10/24 1356 [facility]05-28-2025 Progress note Author Gloria Arrington [facility] HospitalNote Date/TimeMay 2024 11:[place] [address] Physiatry(Rehab) Progress Note Signed Patient: Rehan Trejo MR#: [id number] : 1965 Acct:[id number] Age/Sex: 59 / M Adm Date: 5 Loc: Room: 6I2462-4 Type: ADM IN Attending Dr: Paco Jimenez [...] at homecaring for his , mother and aciits-gn-osz. Shares insight into mechanism of injury of [...] mg 12/03/24 16:45 Bisacodyl 10 Mg Supp.Rect ID 12/03/25 16:44 DAILY PRN Constipation Budesonide/Formoterol Fumarate [...] 16:45 Docusate Enema 283 Mg/5 Ml Enema ID 12/03/25 16:44 DAILY PRN Constipation Doxycycline Hyclate [...] at least 3 times weekly encounters with emblem drawer in for medical management and for plan of care review / changes. I spent 21 minutes for services, including ryep-nv-hfst encounter with the patient, discussion of the case, plan of care, and exam; and isdrxcr-md-fkwf activities, such as reviewing pertinent sap consultant documentation, recent therapynotes, laboratory and radiology studies, and discussion of case with care team including physician, nursing, case briefer, and therapists. More than 50 % of time was spent on patient/family counseling or coordination ofcare. <Statement entered by Jose Antonio Camara MD - 12/10/24 11:17> This documentation has been reviewed and approved. I reviewed the history and the relevant portions of the chart, including currentorders, allied health and sap consultant notes, labs/imaging and plan of care as above. Documented By: Gloria Arrington APRN 12/05/24 1 144 Signed By: <Electronically signed by KB Arrington> 12/05/24 1243 <Electronically signed by Jose Antonio Camara MD> 12/10/24 111 [facility] Work Phone: 1(587) 183-812105-28-2025 Progress note Author Gloria Arrington [facility] Date/TimeMay 2024 10:53[place] [address] Physiatry(Rehab) Progress Note Signed Patient: Rehan Trejo MR#: [id number] : 1965 Acct:[id number] Age/Sex: 59 / M Adm Date: 5 Loc: Room: [address] [place] [address] Type: ADM IN Attending Dr: Paco Jimenez [...] at homecaring for his , mother and fjoavl-tu-yhu. Shares insight into mechanism of injury of [...] mg 12/03/24 16:45 Bisacodyl 10 Mg Supp.Rect ID 12/03/25 16:44 DAILY PRN Constipation Budesonide/Formoterol Fumarate [...] 16:45 Docusate Enema 283 Mg/5 Ml Enema ID 12/03/25 16:44 DAILY PRN Constipation Doxycycline Hyclate [...] at least 3 times weekly encounters with emblem drawer in for medical management and for plan of care review / changes. I spent 19 minutes for services, including mbaw-xy-uhrr encounter with the patient, discussion of the case, plan of care, and exam; and uhswomn-rn-rqkw activities, such as reviewing pertinent sap consultant documentation, recent therapynotes, laboratory and radiology studies, and discussion of case with care team including physician, nursing, case briefer, and therapists. More than 50 % of time was spent on patient/family counseling or coordination ofcare. <Statement entered by Jose Antonio Camara MD - 12/10/24 10:53> This documentation has been reviewed and approved. I reviewed the history and the relevant portions of the chart, including currentorders, allied health and sap consultant notes, labs/imaging and plan of care as above. Documented By: Gloria Arrington APRN 12/08/24 1 103 Signed By: <Electronically signed by KB Arrington> 12/08/24 1105 <Electronically signed by Jose Antonio Camara MD> 12/10/24 1053 [facility] Work Phone: 1(802) 978-754505-28-2025 [place] [address] Physiatry(Rehab) Progress Note Signed Patient: Rehan Trejo MR#: [id number] : 1965 Acct:[id number] Age/Sex: 59 / M Adm Date: 5 Loc: Room: 2S7930-0 Type: ADM IN Attending Dr: Paco Jimenez [...] at homecaring for his , mother and vxsmub-vf-ckl. Shares insight into mechanism of injury of [...] mg 12/03/24 16:45 Bisacodyl 10 Mg Supp.Rect ID 12/03/25 16:44 DAILY PRN Constipation Budesonide/Formoterol Fumarate [...] 16:45 Docusate Enema 283 Mg/5 Ml Enema ID 12/03/25 16:44 DAILY PRN Constipation Doxycycline Hyclate [...] at least 3 times weekly encounters with emblem drawer in for medical management and for plan of care review / changes. I spent 21 minutes for services, including hrtt-gw-gtlo encounter with the patient, discussion of the case, plan of care, and exam; and kelobnl-eg-jmra activities, such as reviewing pertinent sap consultant documentation, recent therapynotes, laboratory and radiology studies, and discussion of case with care team including physician, nursing, case briefer, and therapists. More than 50 % of time was spent on patient/family counseling or coordination ofcare. This documentation has been reviewed and approved. I reviewed the history and the relevant portions of the chart, including currentorders, allied health and sap consultant notes, labs/imaging and plan of care as above. Documented By: Gloria Arrington APRN 12/05/24 1 144 Signed By: 12/05/24 1243 12/10/[address] [place], [place] 8602205-28-2025 [place] [address] Physiatry(Rehab) Progress Note Signed Patient: Rehan Trejo MR#: [id number] : 1965 Acct:[id number] Age/Sex: 59 / M Adm Date: 5 Loc: Room: 9J3143-9 Type: ADM IN Attending Dr: Paco Jimenez [...] at homecaring for his , mother and cufcsi-bg-jss. Shares insight into mechanism of injury of [...] mg 12/03/24 16:45 Bisacodyl 10 Mg Supp.Rect ID 12/03/25 16:44 DAILY PRN Constipation Budesonide/Formoterol Fumarate [...] 16:45 Docusate Enema 283 Mg/5 Ml Enema ID 12/03/25 16:44 DAILY PRN Constipation Doxycycline Hyclate [...] at least 3 times weekly encounters with emblem drawer in for medical management and for plan of care review / changes. I spent 19 minutes for services, including ejix-lg-vjbe encounter with the patient, discussion of the case, plan of care, and exam; and bcatspy-uo-fxeq activities, such as reviewing pertinent sap consultant documentation, recent therapynotes, laboratory and radiology studies, and discussion of case with care team including physician, nursing, case briefer, and therapists. More than 50 % of time was spent on patient/family counseling or coordination ofcare. This documentation has been reviewed and approved. I reviewed the history and the relevant portions of the chart, including currentorders, allied health and sap consultant notes, labs/imaging and plan of care as above. Documented By: Gloria Arrington APRN 12/08/24 1 103 Signed By: 12/08/24 1105 12/10/24 1053 [facility]05-27-2025 Progress note Author Paco Jimenez [facility] Date/TimeMay 2024 12:[address] [address] Physiatry(Rehab) Progress Note Signed Patient: Rehan Trejo MR#: [id number] : 1965 Acct:[id number] Age/Sex: 59 / M Adm Date: 5 Loc: Room: 0G4309-8 Type: ADM IN Attending Dr: Paco Jimenez [...] at homecaring for his , mother and bwabgy-ps-oqs. Shares insight into mechanism of injury of [...] mg 12/03/24 16:45 Bisacodyl 10 Mg Supp.Rect ID 12/03/25 16:44 DAILY PRN Constipation Budesonide/Formoterol Fumarate [...] 16:45 Docusate Enema 283 Mg/5 Ml Enema ID 12/03/25 16:44 DAILY PRN Constipation Doxycycline Hyclate [...] at least 3 times weekly encounters with emblem drawer in for medical management and for plan of care review / changes. I spent 25 minutes for services, including ydin-jq-icfv encounter with the patient, discussion of the case, plan of care, and exam; and nolaacq-vy-cbey activities, such as reviewing pertinent sap consultant documentation, recent therapynotes, laboratory and radiology studies, and discussion of case with care team including physician, nursing, case briefer, and therapists. More than 50 % of time was spent on patient/family counseling or coordination ofcare. Documented By: Paco Jimenez MD 1244 Signed By: <Electronically signed by Paco Jimenez MD> 12/09/24 1246 [facility] Work Phone: 1(608) 262-902205-27-2025 [place] [address] Physiatry(Rehab) Progress Note Signed Patient: Rehan Trejo MR#: [id number] : 1965 Acct:[id number] Age/Sex: 59 / M Adm Date: 5 Loc: Room: [address] [place] [address] Type: ADM IN Attending Dr: Paco Jimenez [...] at homecaring for his , mother and hurzxn-zm-yod. Shares insight into mechanism of injury of [...] mg 12/03/24 16:45 Bisacodyl 10 Mg Supp.Rect ID 12/03/25 16:44 DAILY PRN Constipation Budesonide/Formoterol Fumarate [...] 16:45 Docusate Enema 283 Mg/5 Ml Enema ID 12/03/25 16:44 DAILY PRN Constipation Doxycycline Hyclate [...] at least 3 times weekly encounters with emblem drawer in for medical management and for plan of care review / changes. I spent 25 minutes for services, including bjwk-eb-fyng encounter with the patient, discussion of the case, plan of care, and exam; and kpjxyoe-dl-usdp activities, such as reviewing pertinent sap consultant documentation, recent therapynotes, laboratory and radiology studies, and discussion of case with care team including physician, nursing, case briefer, and therapists. More than 50 % of time was spent on patient/family counseling or coordination ofcare. Documented By: Paco Jimenez MD 1244 Signed By: 12/09/24 1246 [facility]05-23-2025 Consult note Author Danyell Daniels [facility]Note Date/TimeMay 2024 10:12[place] [id number] Hospitalist Consult Note Signed Patient: Rehan Trejo MR#: [id number] : 1965 Acct:[id number] Age/Sex: 59 / M Adm Date: 5 Loc: Room: [address] [place] [address] Type: ADM IN Attending Dr: Paco Jimenez [...] underlying avascular necrosis. He was transferred to [facility] for ongoing orthopedic management. Seen by [...] negative unless noted below or in HPI [facility] Medical History (Updated 12/04/24 @ [...] mg 12/03/24 16:45 Bisacodyl 10 Mg Supp.Rect ID 12/03/25 16:44 DAILY PRN Constipation Budesonide/Formoterol Fumarate [...] 16:45 Docusate Enema 283 Mg/5 Ml Enema ID 12/03/25 16:44 DAILY PRN Constipation Doxycycline Hyclate [...] % (Auto) 67.2, Lymph % (Auto) 20.4, [place] % (Auto) 11.8, Eos % (Auto) 0.3, Baso % (Auto) 0.3, Nucleat RBC Rel Count 0.1, Neut # (Auto) 6.1, Lymph # (Auto) 1.9, [place] # (Auto) 1.1 H, Eos # (Auto) [...] 2. Hyperlipidemia?atorvastatin 3. COPD/asthma?budesonide/formoterol 4. CAD history CA?isosorbide, metoprolol, aspirin 5. Hypothyroid?levothyroxine 6. BPH?tamsulosin 7. [...] PCP and out patient providers to obtain [facility] record entirely to followup on illnesses, symptoms, abnormal findings that I have and have not addressed duringthis encounter and hospitalization in out patient setting. Documented By: Danyell Daniels APRN 11/14 09/09 1538 Signed By: <Electronically signed by KB Daniels> 12/04/24 8140 <Electronically signed by Yonis Alves MD> 12/05/24 1012 [facility] Work Phone: 1(576) 156-968005-23-2025 [place] [address] Hospitalist Consult Note Signed Patient: Rehan Trejo MR#: [id number] : 1965 Acct:[id number] Age/Sex: 59 / M Adm Date: 5 Loc: Room: [address] [place] [address] Type: ADM IN Attending Dr: Paco Jimenez [...] underlying avascular necrosis. He was transferred to [facility] for ongoing orthopedic management. Seen by [...] negative unless noted below or in HPI [facility] Medical History (Updated 12/04/24 @ [...] mg 12/03/24 16:45 Bisacodyl 10 Mg Supp.Rect ID 12/03/25 16:44 DAILY PRN Constipation Budesonide/Formoterol Fumarate [...] 16:45 Docusate Enema 283 Mg/5 Ml Enema ID 12/03/25 16:44 DAILY PRN Constipation Doxycycline Hyclate [...] % (Auto) 67.2, Lymph % (Auto) 20.4, [place] % (Auto) 11.8, Eos % (Auto) 0.3, Baso % (Auto) 0.3, Nucleat RBC Rel Count 0.1, Neut # (Auto) 6.1, Lymph # (Auto) 1.9, [place] # (Auto) 1.1 H, Eos # (Auto) [...] 2. Hyperlipidemia?atorvastatin 3. COPD/asthma?budesonide/formoterol 4. CAD history CA?isosorbide, metoprolol, aspirin 5. Hypothyroid?levothyroxine 6. BPH?tamsulosin 7. [...] PCP and out patient providers to obtain [facility] [facility] followup on illnesses, symptoms, abnormal findings that I have and have not addressed duringthis encounter and hospitalization in out patient setting. Documented By: Danyell Daniels, HR ADMINISTRATOR 11/14 09/09 1538 Signed By: 12/04/24 [id number] 12/05/24 1012 [facility]05-22-2025 History and physical note Author Paco Jmienez [facility] HospitalNote Date/TimeMay 2024 2:52pm[place] [address] Physiatry (Rehab) H&P Signed Patient: Rehan Trejo MR#: [id number] : 1965 Acct:[id number] Age/Sex: 59 / M Adm Date: 5 Loc: Room: [address] [place] [address] Type: ADM IN Attending Dr: Paco Jimenez [...] at homecaring for his , mother and [id number]. Shares insight into mechanism of injury of [...] and managing to work through the pain. [facility] Medical History COPD (chronic obstructive [...] 500 Mg Tablet) 500 mg PO BID.WITH.MEALS [facility] Stop: 12/04/25 07:59 Last Admin: 12/04/24 08:40 Dose: 500 mg Aspirin (Aspirin 81 Mg Tablet.Dr) 81 mg PO BID [facility] Stop: 12/03/25 20:59 Last Admin: 12/04/24 08:40 Dose: 81 mg Atorvastatin Calcium (Atorvastatin 10 Mg Tablet) 10 mg PO HS [facility] Stop: 12/03/25 21:59 Last Admin: 12/03/24 21:20 Dose: 10 mg Bisacodyl (Bisacodyl 10 Mg Supp.Rect) 10 mg ID DAILY PRN PRN Reason: Constipation Stop: 12/03/25 [...] Enema 283 Mg/5 Ml Enema) 283 mg ID DAILY PRN PRN Reason: Constipation Stop: 12/03/25 16:44 Doxycycline Hyclate (Doxycycline Hyclate 100 Mg Tablet) 100 mg PO BID [facility] Stop: 12/10/24 20:59 Last Admin: 12/04/24 08:40 Dose: 100 mg Isosorbide Mononitrate (Isosorbide Mononitrate 24hr Er 30 Mg Tab.Er.24h) 30 mg PO QAM [facility] Stop: 12/04/25 08:59 Last Admin: 12/04/24 08:41 Dose: 30 mg Lactulose (Lactulose 20 Gm/30 Ml Udc) 30 gm PO DAILY PRN PRN Reason: Constipation Stop: 12/03/25 16:44 Levothyroxine Sodium (Levothyroxine 125 Mcg Tablet) 250 mcg PO DAILY.0630 [facility] Stop: 12/04/25 06:29 Last Admin: 12/04/24 05:36 Dose: 250 mcg Melatonin (Melatonin 5 Mg Tablet) 10 mg PO QHS [facility] Stop: 12/03/25 21:59 Last Admin: 12/03/24 [...] 100 Mg Tablet) 200 mg PO HS [facility] Stop: 12/03/25 21:59 Last Admin: 12/03/24 [...] % (Auto) 67.2 Lymph % (Auto) 20.4 [place] % (Auto) 11.8 Eos % (Auto) 0.3 Baso % (Auto) 0.3 Nucleat RBC Rel Count 0.1 Neut # (Auto) 6.1 Lymph # (Auto) 1.9 [place] # (Auto) 1.1 H Eos # (Auto) [...] 12 Days Expected Discharge Destination: Home Rehabilitation [facility]: 8.11 Primary Diagnosis: as above Patient?s/Family?s anticipated [...] 24 hour daily monitoring and intervention from Receiving Weigher as well as other consulting physicians including internal medicine as well as 24 hour daily bacon de rinder nursing - for medical safe / optimal [...] at least 3 times weekly encounters with emblem drawer in for medical management and for plan of care review / changes. Patient was personally seen by me, Dr. Jimenez, on the day of encounter, reviewed the history and the relevant portions of the chart, including current orders, allied health and sap consultant notes, labs/imaging and performed ulloa elements of exam and I formulated the plan of care and facilitated the medical decision making and confirmed the resident physician note, as above I completed a substantive portion of this encounter, the medical decision makingportion of this note in its entirety, including Allied health note review, nursing note review, sap consultant note review,discussion with nursing and case management, and more than 50% of my time was spent on counseling and coordination of care, time spent 40 minutes Documented By: Paco Jimenez MD [id number] Signed By: <Electronically signed by Paco Jimenez MD> 12/04/24 1452 <Electronically signed by MD ANÍBAL Tracy> 12/04/24 1300 [facility] Work Phone: 1(809) 520-292505-22-2025 [place] [address] Physiatry (Rehab) H&P Signed Patient: Rehan Trejo MR#: [id number] : 1965 Acct:[id number] Age/Sex: 59 / M Adm Date: 5 Loc: Room: 2Y3120-1 Type: ADM IN Attending Dr: Paco Jimenez MD Copies to: MD Pee Silva MD Mark Khalil, MD, RES~ Date of Service: 12/04/2024 [facility] The patient was seen and examined on: [...] at homecaring for his , mother and sapmat-ei-lgj. Shares insight into mechanism of injury of [...] and managing to work through the pain. [facility] Medical History COPD (chronic obstructive [...] Bisacodyl (Bisacodyl 10 Mg Supp.Rect) 10 mg ID DAILY PRN PRN Reason: Constipation Stop: 12/03/25 16:44 Calcium Carbonate (Calcium Carbonate/Vitamin D3 500 Mg/200 Unit Tablet) 1 tab PO BID [facility] Stop: 12/03/25 20:59 Last Admin: 12/04/24 08:40 Dose: 1 tab Diclofenac Sodium (Diclofenac Sodium 75 Mg Tablet.) 75 mg PO DAILY [facility] Stop: 12/04/25 08:59 Last Admin: 12/04/24 [...] Enema 283 Mg/5 Ml Enema) 283 mg ID DAILY PRN PRN Reason: Constipation Stop: 12/03/25 16:44 Doxycycline Hyclate (Doxycycline Hyclate 100 Mg Tablet) 100 mg PO BID [facility] Stop: 12/10/24 20:59 Last Admin: 12/04/24 08:40 Dose: 100 mg Isosorbide Mononitrate (Isosorbide Mononitrate 24hr Er 30 Mg Tab.Er.24h) 30 mg PO QAM [facility] Stop: 12/04/25 08:59 Last Admin: 12/04/24 08:41 Dose: 30 mg Lactulose (Lactulose 20 Gm/30 Ml Udc) 30 gm PO DAILY PRN PRN Reason: Constipation Stop: 12/03/25 16:44 Levothyroxine Sodium (Levothyroxine 125 Mcg Tablet) 250 mcg PO DAILY.0630 [facility] Stop: 12/04/25 06:29 Last Admin: 12/04/24 05:36 Dose: 250 mcg Melatonin (Melatonin 5 Mg Tablet) 10 mg PO QHS [facility] Stop: 12/03/25 21:59 Last Admin: 12/03/24 21:20 Dose: 10 mg Metoprolol Tartrate (Metoprolol Tartrate 50 Mg Tablet) 50 mg PO BID [facility] Stop: 12/03/25 20:59 Last Admin: 12/04/24 [...] 17 Gm Powd.Pack) 17 gm PO DAILY [facility] Stop: 12/04/25 08:59 Last Admin: 12/04/24 08:41 Dose: Not Given Rivaroxaban (Rivaroxaban 10 Mg Tablet) 10 mg PO DAILY [facility] Stop: 12/04/25 08:59 Last Admin: 12/04/24 08:40 Dose: 10 mg Senna/Docusate Sodium (Sennosides/Docusate 8.6-50mg 1 Tab Tablet) 2 tab PO BID [facility] Stop: 12/03/25 20:59 Last Admin: 12/04/24 08:41 Dose: Not Given Sodium Chloride (Sodium Chloride 0.9 % 10 Ml Syringe) 0 ml IV-PUSH PRN PRN PRN Reason: Flush Stop: 12/03/25 16:44 Sodium Chloride (Sodium Chloride 0.9 % 10 Ml Syringe) 10 ml IV-PUSH BID [facility] Stop: 12/04/25 08:59 Last Admin: 12/04/24 08:41 Dose: 10 ml Tamsulosin HCl (Tamsulosin 0.4 Mg Cap.Er.24h) 0.4 mg PO DAILY [facility] Stop: 12/04/25 08:59 Last Admin: 12/04/24 08:40 Dose: 0.4 mg Tizanidine HCl (Tizanidine 4 Mg Tablet) 4 mg PO HS [facility] Stop: 12/03/25 21:59 Last Admin: 12/03/24 21:20 Dose: 4 mg Topiramate (Topiramate 100 Mg Tablet) 100 mg PO QAM [facility] Stop: 12/04/25 08:59 Last Admin: 12/04/24 08:40 Dose: 100 mg Topiramate (Topiramate 100 Mg Tablet) 200 mg PO HS [facility] Stop: 12/03/25 21:59 Last Admin: 12/03/24 [...] % (Auto) 67.2 Lymph % (Auto) 20.4 [place] % (Auto) 11.8 Eos % (Auto) 0.3 Baso % (Auto) 0.3 Nucleat RBC Rel Count 0.1 Neut # (Auto) 6.1 Lymph # (Auto) 1.9 [place] # (Auto) 1.1 H Eos # (Auto) [...] 24 hour daily monitoring and intervention from Receiving Weigher as well as other consulting physicians including internal medicine as well as 24 hour daily bacon de rinder nursing - for medical safe / optimal [...] at least 3 times weekly encounters with emblem drawer in for medical management and for plan of care review / changes. Patient was personally seen by me, Dr. Jimenez, on the day of encounter, reviewed the history and the relevant portions of the chart, including current orders, allied health and sap consultant notes, labs/imaging and performed ulloa elements of exam and I formulated the plan of care and facilitated the medical decision making and confirmed the resident physician note, as above I completed a substantive portion of this encounter, the medical decision makingportion of this note in its entirety, including Allied health note review, nursing note review, sap consultant note review,discussion with nursing and case management, and more than 50% of my time was spent on counseling and coordination of care, time spent 40 minutes Documented By: Paco Jimenez MD [id number] Signed By: 12/04/24 1452 12/04/24 1300 [facility]05-21-2025 Evaluation note* Diagnosis Onset Date Resolution [...] post total hip replacement, rightnoneactiveAugust 2024 11:08am [facility] Work Phone: 1(233) 575-159905-19-2025 Evaluation note* Diagnosis Onset Date Resolution Status [...] hip arthroplastyresolvedMay 2024 4:33pmSeizure disorderresolvedMay 2024 4:33pm [facility] Work Phone: 1([phone]) 908-413905-19-2025 Evaluation note* Diagnosis Onset Date Resolution Status [...] post total hip replacement, rightnoneactiveJune 2024 3:59pm [facility] Work Phone: 1(308) 434-370005-19-2025 Evaluation note* Diagnosis Onset Date Resolution Status [...] post total hip replacement, rightnoneactiveJune 2024 3:59pm [facility] Work Phone: 1(448) 310-614005-19-2025 Evaluation note* Diagnosis Onset Date Resolution Status [...] post total hip replacement, rightnoneactiveJune 2024 10:57am [facility] Work Phone: 1([phone]) 652-598305-19-2025 Evaluation note* Diagnosis Onset Date Resolution Status [...] post total hip replacement, rightnoneactiveJuly 2024 11:59am [facility] Work Phone: 1(989) 585-918205-19-2025 Evaluation note* Diagnosis Onset Date Resolution Status [...] lower extremityacuteAugust 2024 10:17amStasis dermatitisacuteAugust 2024 10:17am [facility] Work Phone: 1(357) 295-364203-19-2025 NoteUT Cardiology - [facility] Subjective Rehan Trejo is a [...] Adrenal insufficiency NSTEMI (non-ST elevated myocardial infarction) ([facility]) Alcoholism ([facility]) Atypical chest pain COVID-19 Diverticulitis Dysphagia Dyspnea Edema Epigastric pain Groin strain Lumbar radicular pain Other diseases of lung, not elsewhere classified Other instability, left ankle Other specified congenital deformities of feet Pain in left ankle and joints of left foot Pneumonia Primary osteoarthritis of left hip Sprain of left ankle Syncope and collapse Benign essential hypertension Osteoarthritis of knee Recurrent seizures ([facility]) HPI Patient with history of syncope 2022, [...] Diagnosis Date COPD (chronic obstructive pulmonary disease) ([facility]) Hyperlipidemia Hypertension Seizures ([facility]) Syncope No past surgical history on file. [...] Drug use: Never Allergies Allergies Allergen Reactions [place] Anaphylaxis Penicillins Angioedema Medications Current Outpatient Medications: [...] 4 mg by saloni (more content not included)...[facility]05-15-2023 NotePROCEDURE: XR ANKLE LT 2V HISTORY: Unspecified fall , left ankle pain COMPARISON: None. FINDINGS: BONES:No fracture, acute abnormality, or significant arthropathy. SOFT TISSUES:Mild anterior lateral soft tissue swelling. EFFUSION:None visible. OTHER: Negative. IMPRESSION: 1. No acute bone abnormality. Electronically authenticated by: SHEN SOSA Date: 2022-11-27 11:27[facility]04-11-2023 NotePROCEDURE: XR HIP LT 2 3V W PELVIS HISTORY: Idiopathic osteoarthritis ; acute left hip pain after falling COMPARISON: None. FINDINGS: BONES:No fracture, acute abnormality, or significant arthropathy. SOFT TISSUES:No visible soft tissue swelling. EFFUSION:None visible. OTHER: Negative. IMPRESSION: 1. No acute bone abnormality or significant degenerative joint disease. Electronically authenticated by: SHEN SOSA Date: 2022-10-24 09:51[facility] note* Diagnosis Rash and other nonspecific skin eruption- Primary documented in this encounter [facility] Healthcare[facility] note* Diagnosis Rash and other nonspecific skin eruption documented in this encounter [facility] note* Diagnosis Stasis dermatitis of both legs- Primary Encounter for removal of sutures Rash and other nonspecific skin eruption documented in this encounter [facility] HealthcareReason for referral (narrative)No reason for referral information availableKind[facility] Work Phone: Summary Purpose Family History No [...] 12, 2024 1:15p m HOSP F/U RT [facility] December 22, 2024 3:59p m M25.511 - [...] section and content) DATE CREATED AUTHOR 02/15/2019 [facility] DATE CREATED AUTHOR AUTHOR'S ORGANIZ ATION 12/22/2022 [facility] DATE CREATED AUTHOR AUTHOR'S ORGANIZ ATION 03/06/2023 [facility] DATE CREATED AUTHOR AUTHOR'S ORGANIZ ATION 04/19/2025 [facility] DATE CREATED AUTHOR AUTHOR'S ORGANIZ ATION 04/26/2025 [facility] DATE CREATED AUTHOR AUTHOR'S ORGANIZ ATION 05/28/2025 [facility] Care Teams (unrecognized sec tion and [...] December 03, 2024 End: December 14lowell Bonner WAREHOUSE ATTENDANT-COther ProviderActiveStart: December 03, 2024 End: December 14dNikos [...] Start: December 04, 2024 Paco Jimenez , [facility] Provider, Attending Provider, Other Provider ActiveStart: December [...] ProviderActiveStart: December 04, 2024 Sis Bonner , WAREHOUSE ATTENDANT-COther ProviderActiveStart: December 04, 2024 Yamilet Alejandra , [...] Provider, Other Provider ActiveStart: December 12, 2024 aPdmini Acosta , BRISEYDAOther ProviderActiveStart: December 12, 2024 [...] ProviderActiveStart: December 12, 2024 Sis Bonner , WAREHOUSE ATTENDANT-COther ProviderActiveStart: December 12, 2024 Yamilet Alejandra , [...] , APRNOther ProviderActiveStart: December 12, 2024 Yeimi Smtih , APRNOther ProviderActiveStart: December 12, 2024 Mariam [...] , BRISEYDAOther ProviderActiveStart: December 04, 2024 Annemarie Bhakat , BRISEYDAOther ProviderActiveStart: December 04, 2024 Angle [...] ProviderActiveStart: December 04, 2024 Sis Bonner , WAREHOUSE ATTENDANT-COther ProviderActiveStart: December 04, 2024 Yamilet Alejandra , [...] ProviderActiveStart: December 12, 2024 Sis Bonner , WAREHOUSE ATTENDANT-COther ProviderActiveStart: December 12, 2024 Yamilet Alejandra , [...] BE BASED ON THE PRIMARY CLINICAL RECORDS. [facility] [employer] provides no warranty or guarantee of the accuracy or completeness of information in this document.
--- NOTE | 2025-06-02 13:43 | SWNOTE1 ---
DAIJA received a call from the [facility] rep who is trying to track down pt to set up HH after surgery. DAIJA notified Alannah from [facility] that surgery was cancelled. This information was provided to Alannah at [facility] for continuation of care.
== END 2025-06-01 07:10 | disposition home or self-care (01) ==
LOC: SURGOUT 07:39
PROVIDERS: PCP Family Medicine; Visit Provider Orthopaedic Surgery Orthopaedic Trauma
DX: M87.852 Other osteonecrosis, left femur (principal); Z53.8 Procedure and treatment not carried out for other reasons; M25.552 Pain in left hip
CPT/HCPCS: 27130; 36415